=== PATIENT | male | born 2000 | race Caucasian/White ===

== ENCOUNTER 2023-01-01 22:36 | Emergency (ER) | payer OTHER, SELFPAY ==
[2023-01-01 22:38] VITALS: BP 110/80; PULSE 77; RESP 18; TEMP 36.9; O2SAT 100; BMI 18.5
--- NOTE | 2023-01-01 22:49 | ED_ITS ---
HPI - Seizure General Chief Complaint: Seizure Stated Complaint: SEIZURE Time Seen by Provider: 01/01/23 22:41 Source: patient Mode of arrival: ambulance History of Present Illness HPI Narrative: patient had several seizures at his home, witnessed by family members who live with him. On Keppra and Lamictal for seizure disorder/epilepsy. Patient reported that the local hospitals have been unable to find EEG activity and so he is supposed to see a seizure specialist in [place]. However a few weeks ago, while in [place], she apparently had a seizure and hit her head. She was hospitalized due to status epilepticus and told us that she was intubated and put into a coma . the patient denied any alcohol use, missed doses of anti- seizure medication or lack of sleep. She told us that one of the physicians in [place] increased her Lamictal dose. She denied any pain, injury or other complaint Related Data Home Medications Medication Instructions Recorded Confirmed lamotrigine 100 mg tablet 100 mg PO BID 01/01/23 01/01/23 (Lamictal) levetiracetam 1,000 mg tablet 1,000 mg PO BID 01/01/23 01/01/23 (Keppra) Allergies Allergy/AdvReac Type Severity Reaction Status Date / Time codeine Allergy Unknown Verified 01/01/23 22:46 Exam Narrative Exam Narrative: Nurses notes and vital signs reviewed and patient is not hypoxic. afebrile General: Well-appearing and in no apparent distress. Skin: Warm, dry, no pallor noted. No rash. Head: Normocephalic, atraumatic. Neck: Supple, non-tender. Eye: Pupils are equal, round and EOMI. No scleral icterus. Ears, Nose, Mouth, and Throat: TM are clear, no nasal mucosal hypertrophy. Oral mucosa is moist, no posterior oropharynx erythema, uvula is mid-line Cardiovascular: Regular Rate and Rhythm without murmur, gallop or rub. Respiratory: No accessory muscle use or respiratory distress. Lungs are clear to auscultation, no wheezing, rales or rhonchi Chest Wall: no tenderness Back: No midline thoracic or lumbar vertebral tenderness. No CVA tenderness Musculoskeletal: normal ROM, no calf or popliteal tenderness, no lower extremity edema/swelling GI: Abdomen is soft, non-distended. Normal bowel sounds. No masses appreciated. No tenderness to palpation. No rebound, guarding, or rigidity noted. Neurological: A&O x4. No cranial nerve dysfunction observed. No truncal ataxia. Moves all extremities. Sensation intact. Psychiatric: Cooperative and interactive. Normal mood and affect. Constitutional Vital Signs, click to edit/add: Last Vital Signs Temp 98.4 F 01/01/23 22:38 Pulse 77 01/01/23 22:38 Resp 18 01/01/23 22:38 BP 110/80 H 01/01/23 22:38 Pulse Ox 100 01/01/23 22:38 Course Vital Signs Vital signs: Vital Signs Temperature 98.4 F 01/01/23 22:38 Pulse Rate 77 01/01/23 22:38 Respiratory Rate 18 01/01/23 22:38 Blood Pressure 110/80 H 01/01/23 22:38 Pulse Oximetry 100 01/01/23 22:38 Temperature 98.4 F 01/01/23 22:38 Pulse Rate 77 01/01/23 22:38 Respiratory Rate 18 01/01/23 22:38 Blood Pressure 110/80 H 01/01/23 22:38 Pulse Oximetry 100 01/01/23 22:38 MDM - Seizure MDM Narrative Medical decision making narrative: Seizure precautions initiated. Patient was placed on surveillance monitor and EKG obtained. Blood drawn and sent for evaluation. Patient was ordered to receive Ativan 1mg IV. urine tox screen shows THC. CBC and BMP normal. Patient was discharged home with recommendation to continue his current regimen and follow-up with the neurology group as scheduled. Lab Data Attestation: I reviewed the patient's lab results. Labs: Lab Results 01/01/23 Range/Units 22:55 WBC 9.8 (4.0-11.0) 10^3/uL RBC 4.46 L (4.70-6.10) 10^6/uL Hgb 12.8 L (14.0-18.0) g/dL Hct 40.1 L (42.0-54.0) % MCV 89.9 (80.0-94.0) fL MCH 28.7 (25.9-34.0) pg MCHC 31.9 (29.9-35.2) g/dL RDW 12.5 (11.0-15.0) % Plt Count 264 (150-450) 10^3/uL MPV 9.3 L (9.5-13.5) fL Neut % (Auto) 44.8 (43.0-75.0) % Lymph % (Auto) 47.1 (20.5-60.0) % [place] % (Auto) 6.1 (1.7-12.0) % Eos % (Auto) 1.2 (0.9-7.0) % Baso % (Auto) 0.4 (0.2-2.0) % Neut # (Auto) 4.4 (1.4-6.5) 10^3/uL Lymph # (Auto) 4.6 H (1.2-3.8) 10^3/uL [place] # (Auto) 0.6 (0.3-0.8) 10^3/uL Eos # (Auto) 0.1 (0.0-0.7) 10^3/uL Baso # (Auto) 0.0 (0.0-0.1) 10^3/uL Abs Immat Gran (auto) 0.04 H (0.00-0.03) 10^3/uL Imm/Tot Granulo (auto) 0.4 (0.0-0.5) % Sodium 139 (136-145) mmol/L Potassium 3.9 (3.5-5.1) mmol/L Chloride 105 (98-107) mmol/L Carbon Dioxide 30.9 (21.0-32.0) mmol/L Anion Gap 7.0 BUN 8.0 (7.0-18.0) mg/dL Creatinine 0.89 (0.70-1.30) mg/dL Est GFR ( Amer) >60 (>=60) Est GFR (Non-Af Amer) >60 (>=60) BUN/Creatinine Ratio 9.0 Glucose 94 (74-106) mg/dL Calcium 9.1 (8.5-10.1) mg/dL Urine Opiates Screen Negative (NEGATIVE) Ur Buprenorphine Scrn Negative (NEGATIVE) Ur Oxycodone Screen Negative (NEGATIVE) Urine Methadone Screen Negative (NEGATIVE) Ur Propoxyphene Screen Negative (NEGATIVE) Ur Barbiturates Screen Negative (NEGATIVE) U Tricyclic Antidepress Negative (NEGATIVE) Ur Phencyclidine Scrn Negative (NEGATIVE) Ur Amphetamines Screen Negative (NEGATIVE) U Methamphetamines Scrn Negative (NEGATIVE) U Benzodiazepines Scrn Negative (NEGATIVE) Urine Cocaine Screen Negative (NEGATIVE) U Cannabinoids Screen Positive A (NEGATIVE) ECG Data Interpretation: EKG interpretation: Emergency Department physician interpretation. Normal sinus rhythm at 73bpm. Normal axis, normal intervals and no ST segment elevation or depression. normal EKG Discharge Plan Discharge Chief Complaint: Seizure Clinical Impression: Recurrent seizures Patient Disposition: Home, Self-Care Time of Disposition Decision: 23:33 Prescriptions / Home Meds: No Action levetiracetam [Keppra] 1,000 mg tablet 1,000 mg PO BID lamotrigine [Lamictal] 100 mg tablet 100 mg PO BID Instructions: Recurrent Seizures in Adults (ED) Stand Alone Forms: Portal Instructions Referrals: KAVIN FRENCH [Primary Care Provider] - 1 week
--- NOTE | 2023-01-01 22:52 | ECG_ITS ---
[facility] Test Date: 2023-01-01 Pat Name: BHAVNA VILLAR Department: Room: - Gender: Male Sack Department Supervisor: : 2000 Requested By: KAVIN FRENCH Order Number: [id number] Reading MD: RACHEL LUONG Measurements Intervals [place] Rate: 73 P: 65 OR: 150 QRS: 88 QRSD: 90 T: 46 QT: 354 QTc: 379 Interpretive Statements 1100 Sinus rhythm 9110 normal ECG No previous ECG available for comparison Electronically Signed On 01-02-2023 6:41:45 EDT by RACHEL LUONG
[2023-01-01] MEDS: LORAZEPAM 2 MG/ML 1 ML VIAL 1 MG IV (23:00)
[2023-01-01 23:06] LABS: Basophils Percent Auto 0.4 % (0.2-2.0); Eosinophils Absolute Auto 0.1 10^3/uL (0.0-0.7); Eosinophils Percent Auto 1.2 % (0.9-7.0); Hematocrit 40.1 % (42.0-54.0); Hemoglobin 12.8 g/dL (14.0-18.0); Immature Granulocytes Abs Auto 0.04 10^3/uL (0.00-0.03); Immature Granulocytes Pct Auto 0.4 % (0.0-0.5); Lymphocytes Absolute Auto 4.6 10^3/uL (1.2-3.8); Lymphocytes Percent Auto 47.1 % (20.5-60.0); Mean Corpuscular HGB Conc 31.9 g/dL (29.9-35.2); Mean Corpuscular Hemoglobin 28.7 pg (25.9-34.0); Mean Corpuscular Volume 89.9 fL (80.0-94.0); Mean Platelet Volume 9.3 fL (9.5-13.5); Monocytes Absolute Auto 0.6 10^3/uL (0.3-0.8); Monocytes Percent Auto 6.1 % (1.7-12.0); Neutrophils Absolute Auto 4.4 10^3/uL (1.4-6.5); Neutrophils Percent Auto 44.8 % (43.0-75.0); Platelet Count 264 10^3/uL (150-450); Red Blood Count 4.46 10^6/uL (4.70-6.10); Red Cell Distribution Width 12.5 % (11.0-15.0); White Blood Count 9.8 10^3/uL (4.0-11.0)
[2023-01-01 23:14] LABS: Calcium 9.1 mg/dL (8.5-10.1); Carbon Dioxide 30.9 mmol/L (21.0-32.0); Chloride 105 mmol/L (98-107); Estimated GFR (African America >60 (>=60); Estimated GFR (Non-African Ame >60 (>=60); Glucose 94 mg/dL (74-106); Potassium 3.9 mmol/L (3.5-5.1); Sodium 139 mmol/L (136-145)
[2023-01-01] MEDS: 0.9 % SODIUM CHLORIDE 1,000 ML 999 ML IV (23:16)
[2023-01-01 23:30] LABS: Amphetamine Screen Urine NEGATIVE (NEGATIVE); Barbiturates Screen Urine NEGATIVE (NEGATIVE); Benzodiazepines Screen Urine NEGATIVE (NEGATIVE); Buprenorphine Screen Urine NEGATIVE (NEGATIVE); Cannabinoid Screen Urine POSITIVE (NEGATIVE); Cocaine Screen Urine NEGATIVE (NEGATIVE); Methadone Screen Urine NEGATIVE (NEGATIVE); Methamphetamines Screen Urine NEGATIVE (NEGATIVE); Opiate Screen Urine NEGATIVE (NEGATIVE); Oxycodone Screen Urine NEGATIVE (NEGATIVE); Phencyclidine Screen Urine NEGATIVE (NEGATIVE); Tricyclic Antidepressant Urine NEGATIVE (NEGATIVE)
--- NOTE | 2023-01-01 23:30 | PC.NURSE ---
pt presents to ED and has hx of seizure activity. pt currently takes lamictal and keppra for seizure activity, patient has recently had medication dosages adjusted and has been having more frequent seizure activity than usual. pt states that while on vacation in [place] last month he had a seizure and was in the icu for a month, and was intubated and in an induced coma and just discharged last week. pt's neurologist is out of [place]. pt doesn't have a neurologist locally because everyone he has seen hasn't been able to control his seizure activity. pt takes his seizure meds as prescribed. no medicatioins given during transfer over. pt alert and oriented on arrival. pt has a watch that alerts him before a seizure occurs and also has tremors prior to seizures. pt guardian at bedside.
[2023-01-05 10:11] LABS: Levetiracetam (Keppra), S 17.3 ug/mL (10.0-40.0)
[2023-01-05 17:10] LABS: Lamotrigine (Lamictal), Serum 4.9 ug/mL (2.0-20.0)
== END 2023-01-01 23:57 | disposition home or self-care (01) ==
PROVIDERS: Emergency Provider Emergency Medicine; PCP Family Medicine
DX: G40.909 Epilepsy, unspecified, not intractable, without status epilepticus (principal); R82.5 Elevated urine levels of drugs, medicaments and biological substances; Z79.899 Other long term (current) drug therapy
CPT/HCPCS: 36415; 80048; 80175; 80177; 80307; 85025; 93005; 96374; 99284

== ENCOUNTER 2023-01-30 17:31 | Emergency (ER) | payer OTHER, SELFPAY ==
[2023-01-30] VITALS (8 sets, daily range): BP systolic 97–114; BP diastolic 61–71; PULSE 68–81; RESP 14–22; TEMP 36.9; O2SAT 100; BMI 18.5
--- NOTE | 2023-01-30 17:49 | ED_ITS ---
HPI - Seizure General Chief Complaint: Seizure Stated Complaint: SEIZURE Time Seen by Provider: 01/30/23 17:49 Source: patient Mode of arrival: ambulance Limitations: no limitations History of Present Illness HPI Narrative: patient Brought in via EMS for seizures. EMS states the family witnessed at least 7 seizures in a row. 2 of the seizures were witnessed by EMS who gave the patient 2 mg of Versed.Patient has a history of epilepsy and he is on Keppra 1g bid, and Lamictal 100bid. Patient states he has not missed any doses of medication. Patient reported that the local hospitals have been unable to find EEG activity and so he is supposed to see a seizure specialist in [place]. However a few weeks ago, while in [place], she apparently had a seizure and hit her head. She was hospitalized due to status epilepticus and told us that she was intubated and put into a coma . Patient states she has a follow-up appointment with patient resource specialist next week for this reason. She denies any alcohol use, missed doses of anti-seizure medication or lack of sleep. She told us that one of the physicians in [place] increased her Lamictal dose. Patient states normally has a breakthrough seizure every 2-3 weeks. Seizure History: Yes (sees neurologist in [place]) Related Data Home Medications Medication Instructions Recorded Confirmed lamotrigine 100 mg tablet 100 mg PO BID 01/01/23 01/01/23 (Lamictal) levetiracetam 1,000 mg tablet 1,000 mg PO BID 01/01/23 01/01/23 (Keppra) Allergies Allergy/AdvReac Type Severity Reaction Status Date / Time codeine Allergy Unknown Verified 01/04/23 14:46 Review of Systems ROS Status of ROS 10 or more systems reviewed and unremarkable except as noted in history and below [facility] Social History (System 01/04/23 @ 14:46 by Geena Sanford) Smoking status: Never smoker Exam Narrative Exam Narrative: Nurses notes and vital signs reviewed and patient is not hypoxic. General: Nontoxic, Masculine, Well-appearing and in no apparent distress. Skin: Warm, dry, no pallor noted. No Rash Head: Normocephalic, atraumatic. Neck: Supple, non-tender. Eye: Pupils are equal, round and EOMI. No scleral icterus. Ears, Nose, Mouth, and Throat: TM clear, no posterior oropharynx erythema or nasal mucosal hypertrophy, uvula is mid-line Oral mucosa is moist Cardiovascular: Regular Rate and Rhythm without murmur, gallop or rub. Respiratory: No accessory muscle use or respiratory distress. Lungs are clear to auscultation, no wheezing, rales or rhonchi Chest Wall: no tenderness Back: No midline thoracic or lumbar vertebral tenderness. No CVA tenderness Musculoskeletal: normal ROM, no calf or popliteal tenderness, no lower extremity edema/swelling GI: Abdomen is soft, non-distended. Normal bowel sounds. No masses appreciated. No tenderness to palpation. No rebound, guarding, or rigidity noted. Neurological: A&O x4. No cranial nerve dysfunction observed. No truncal ataxia. Moves all extremities. Sensation intact. Psychiatric: Cooperative and interactive. Normal mood and affect. Constitutional Vital Signs, click to edit/add: Last Vital Signs Temp 98.5 F 01/30/23 17:26 Pulse 68 01/30/23 17:50 Resp 14 01/30/23 17:50 BP 97/65 01/30/23 17:29 Pulse Ox 100 01/30/23 17:52 O2 Del Method Room Air 01/30/23 17:52 Course Vital Signs Vital signs: Vital Signs Temperature 98.5 F 01/30/23 17:26 Pulse Rate 77 01/30/23 17:26 Respiratory Rate 18 01/30/23 17:26 Blood Pressure 114/61 01/30/23 17:26 Pulse Oximetry 100 01/30/23 17:26 Oxygen Delivery Method Room Air 01/30/23 17:26 Temperature 98.5 F 01/30/23 17:26 Pulse Rate 68 01/30/23 17:50 Respiratory Rate 14 01/30/23 17:50 Blood Pressure 97/65 01/30/23 17:29 Pulse Oximetry 100 01/30/23 17:52 Oxygen Delivery Method Room Air 01/30/23 17:52 MDM - Seizure MDM Narrative Medical decision making narrative: Patient had blood work started done. He is hemodynamically stable.All results discussed with patient. pt is nontoxic. He is to follow-up with neurology as an outpatient. At this time the patient is without objective evidence of an acute process requiring hospitalization or inpatient management. The patient has remained hemo dynamically stable. No additional indication for emergent studies at this time. I answered all questions. Discussed discharge instructions including standard anticipatory guidance and what should prompt a return to the emergency department, including if they get worse are not getting better or develops any new or concerning symptoms. I've given them specific time frame in which to follow-up, and who to follow-up with. The patient demonstrates understanding. Patient is nontoxic and stable for discharge with outpatient follow-up. This note was created with the assistance of a speech recognition program. Although the intention is to generate documents that actually reflects the content of the visit, no guarantees can be provided that every mistake has been identified and corrected by editing. Lab Data Attestation: I reviewed the patient's lab results. Labs: Lab Results 01/30/23 01/30/23 Range/Units 17:45 18:34 WBC 7.4 (4.0-11.0) 10^3/uL RBC 4.94 (4.20-5.40) 10^6/uL Hgb 13.9 (12.0-16.0) g/dL Hct 42.0 (36.0-48.0) % MCV 85.0 (81.0-99.0) fL MCH 28.1 (26.7-34.0) pg MCHC 33.1 (29.9-35.2) g/dL RDW 12.7 (11.0-15.0) % Plt Count 253 (150-450) 10^3/uL MPV 10.0 (9.5-13.5) fL Neut % (Auto) 57.4 (43.0-75.0) % Lymph % (Auto) 35.4 (20.5-60.0) % [place] % (Auto) 6.1 (1.7-12.0) % Eos % (Auto) 0.5 L (0.9-7.0) % Baso % (Auto) 0.3 (0.2-2.0) % Neut # (Auto) 4.2 (1.4-6.5) 10^3/uL Lymph # (Auto) 2.6 (1.2-3.8) 10^3/uL [place] # (Auto) 0.5 (0.3-0.8) 10^3/uL Eos # (Auto) 0.0 (0.0-0.7) 10^3/uL Baso # (Auto) 0.0 (0.0-0.1) 10^3/uL Abs Immat Gran (auto) 0.02 (0.00-0.03) 10^3/uL Imm/Tot Granulo (auto) 0.3 (0.0-0.5) % Sodium 140 (136-145) mmol/L Potassium 4.0 (3.5-5.1) mmol/L Chloride 104 (98-107) mmol/L Carbon Dioxide 27.8 (21.0-32.0) mmol/L Anion Gap 12.2 BUN 7.0 (7.0-18.0) mg/dL Creatinine 0.82 (0.55-1.02) mg/dL Est GFR ( Amer) >60 (>=60) Est GFR (Non-Af Amer) >60 (>=60) BUN/Creatinine Ratio 8.5 Glucose 94 (74-106) mg/dL Calcium 9.0 (8.5-10.1) mg/dL Total Bilirubin 0.4 (0.2-1.0) mg/dL AST 15 (15-37) U/L ALT 8 L (14-59) U/L Alkaline Phosphatase 67 (46-116) U/L Total Protein 8.4 H (6.4-8.2) g/dL Albumin 4.9 (3.4-5.0) g/dL Globulin 3.5 g/dL Albumin/Globulin Ratio 1.4 Urine Opiates Screen Negative (NEGATIVE) Ur Buprenorphine Scrn Negative (NEGATIVE) Ur Oxycodone Screen Negative (NEGATIVE) Urine Methadone Screen Negative (NEGATIVE) Ur Propoxyphene Screen Negative (NEGATIVE) Ur Barbiturates Screen Negative (NEGATIVE) U Tricyclic Antidepress Negative (NEGATIVE) Ur Phencyclidine Scrn Negative (NEGATIVE) Ur Amphetamines Screen Negative (NEGATIVE) U Methamphetamines Scrn Negative (NEGATIVE) U Benzodiazepines Scrn Negative (NEGATIVE) Urine Cocaine Screen Negative (NEGATIVE) U Cannabinoids Screen Positive A (NEGATIVE) ECG Data Attestation: I personally reviewed and interpreted this ECG as follows: Interpretation: Sinus rhythm 70 bpm. There are no acute ischemic changes. Discharge Plan Discharge Chief Complaint: Seizure Clinical Impression: Recurrent seizures Patient Disposition: Home, Self-Care Time of Disposition Decision: 18:56 Condition: Good Mode of Transportation: Private Vehicle Prescriptions / Home Meds: No Action levetiracetam [Keppra] 1,000 mg tablet 1,000 mg PO BID lamotrigine [Lamictal] 100 mg tablet 100 mg PO BID Instructions: Recurrent Seizures in Adults (ED) Stand Alone Forms: Portal Instructions Referrals: KAVIN FRENCH [Primary Care Provider] - 1 week
[2023-01-30 17:52] LABS: Basophils Percent Auto 0.3 % (0.2-2.0); Eosinophils Percent Auto 0.5 % (0.9-7.0); Hemoglobin 13.9 g/dL (12.0-16.0); Immature Granulocytes Abs Auto 0.02 10^3/uL (0.00-0.03); Immature Granulocytes Pct Auto 0.3 % (0.0-0.5); Lymphocytes Absolute Auto 2.6 10^3/uL (1.2-3.8); Lymphocytes Percent Auto 35.4 % (20.5-60.0); Mean Corpuscular HGB Conc 33.1 g/dL (29.9-35.2); Mean Corpuscular Hemoglobin 28.1 pg (26.7-34.0); Monocytes Absolute Auto 0.5 10^3/uL (0.3-0.8); Monocytes Percent Auto 6.1 % (1.7-12.0); Neutrophils Absolute Auto 4.2 10^3/uL (1.4-6.5); Neutrophils Percent Auto 57.4 % (43.0-75.0); Platelet Count 253 10^3/uL (150-450); Red Blood Count 4.94 10^6/uL (4.20-5.40); Red Cell Distribution Width 12.7 % (11.0-15.0); White Blood Count 7.4 10^3/uL (4.0-11.0)
[2023-01-30 18:09] LABS: Alanine Aminotransferase 8 U/L (14-59); Albumin Globulin Ratio 1.4; Albumin Level 4.9 g/dL (3.4-5.0); Alkaline Phosphatase 67 U/L (46-116); Anion Gap 12.2; Aspartate Amino Transferase 15 U/L (15-37); BUN Creatinine Ratio 8.5; Bilirubin Total 0.4 mg/dL (0.2-1.0); Carbon Dioxide 27.8 mmol/L (21.0-32.0); Chloride 104 mmol/L (98-107); Estimated GFR (African America >60 (>=60); Estimated GFR (Non-African Ame >60 (>=60); Globulin 3.5 g/dL; Glucose 94 mg/dL (74-106); Sodium 140 mmol/L (136-145); Total Protein 8.4 g/dL (6.4-8.2)
[2023-01-30 18:49] LABS: Amphetamine Screen Urine NEGATIVE (NEGATIVE); Barbiturates Screen Urine NEGATIVE (NEGATIVE); Benzodiazepines Screen Urine NEGATIVE (NEGATIVE); Buprenorphine Screen Urine NEGATIVE (NEGATIVE); Cannabinoid Screen Urine POSITIVE (NEGATIVE); Cocaine Screen Urine NEGATIVE (NEGATIVE); Methadone Screen Urine NEGATIVE (NEGATIVE); Methamphetamines Screen Urine NEGATIVE (NEGATIVE); Opiate Screen Urine NEGATIVE (NEGATIVE); Oxycodone Screen Urine NEGATIVE (NEGATIVE); Phencyclidine Screen Urine NEGATIVE (NEGATIVE); Tricyclic Antidepressant Urine NEGATIVE (NEGATIVE)
--- NOTE | 2023-01-30 19:25 | ECG_ITS ---
[facility] Test Date: 2023-01-30 Pat Name: BHAVNA VILLAR Department: Room: - Gender: Female [employer] Specialist: : 2000 Requested By: [id number] Order Number: [id number] Reading MD: JOYCELYN LAMAR Measurements Intervals [place] Rate: 70 P: 67 MS: 154 QRS: 86 QRSD: 90 T: 63 QT: 378 QTc: 399 Interpretive Statements [address] elevation, probably early repolarization 9130 borderline ECG No previous ECG available for comparison Electronically Signed On 02-01-2023 7:10:34 EDT by JOYCELYN LAMAR
[2023-02-01 17:10] LABS: Levetiracetam (Keppra), S 23.4 ug/mL (10.0-40.0)
== END 2023-01-30 19:09 | disposition home or self-care (01) ==
PROVIDERS: Emergency Provider Emergency Medicine; PCP Family Medicine
DX: G40.909 Epilepsy, unspecified, not intractable, without status epilepticus (principal); Z79.899 Other long term (current) drug therapy
CPT/HCPCS: 36415; 80053; 80175; 80177; 80307; 85025; 93005; 99284

== ENCOUNTER 2023-04-28 07:51 | Outpatient (OUT) | payer OTHER, SELFPAY ==
--- NOTE | 2023-04-28 08:55 | CA_ITS ---
Patient: BHAVNA VILLAR Exam Date: 04/28/2023 : 2000 Gender:F Ordering : GLORIA DAMON Admission #: [id number] Family : Order #: [id number] CLICK HERE TO VIEW EXAM ECHOCARDIOGRAM REPORT PROCEDURE: CA ECHO DOPPLER COMPLETE INDICATIONS: Palpitation, dizziness, DUFFY COMPARISON: None. DESCRIPTION: COMPLETE ECHOCARDIOGRAM Real-time transthoracic echocardiography with 2D, M-mode, spectral and color flow Doppler performed. QUALITY: Technical quality was good. LEFT VENTRICLE: Normal chamber size. Normal left ventricular wall thickness. LV EF: Global left ventricular systolic function is normal. Calculated left ventricular ejection fraction is 65% DIASTOLIC: Normal diastolic function. ATRIAL SEPTUM: Inadequately seen. LEFT ATRIUM: Normal chamber size. RIGHT ATRIUM: Normal chamber size. A prominent Eustachian valve (normal variant) is seen. RIGHT VENTRICLE: Normal chamber size. Normal right ventricular systolic function. TRICUSPID VALVE: Normal mobility and thickness. Trivial regurgitation. No evidence of pulmonary hypertension. RVSP 29mmHg MITRAL VALVE: Normal mobility. Nonspecific thickening of the mitral leaflets. No evidence of mitral valve stenosis. There is no mitral annular calcification. Trivial mitral regurgitation. AORTIC VALVE: Normal trileaflet appearance. No visible sclerosis. Normal leaflet mobility. No evidence of aortic valve stenosis. No aortic regurgitation. AORTIC ROOT: Normal diameter and appearance. PULMONIC VALVE: Normal thickness and mobility. No stenosis. Trivial regurgitation. PERICARDIUM: No evidence of pericardial effusion. IVC: Collapses with inspirations. Normal size. CONCLUSION: 1. Global left ventricular systolic function is normal; visually estimated ejection fraction of 60 to 65% 2. The right ventricle is normal in size and systolic function 3. Normal diastolic function 4. No significant valvular abnormalities Adult Echocardiography Procedure Report Left Ventricle LVEDD (3.7 - 5.6 cm): 4.15 cm LVESD (2.2 - 4.0 cm): 2.74 cm LVIVS thickness (0.6 - 1.2 cm): 0.57 cm LVPW thickness (0.5 - 1.0 cm): 0.65 cm e': 0.17 m/s E - e': 4.56 LVOT Max Gradient: 2.97 mm[Hg] LVOT Area (cm2): 0.86 m/s Peak Velocity (LVOT): 0.86 m/s Mean Velocity (LVOT): 0.59 m/s LVOT Diameter 1.57 cm Left Ventricular Ejection Fraction: 64.59 % Left Atrium LA Volume Index (2D A2C): 23.50 ml/m2 Left Atrium Systolic Dimension: 2.64 cm Mitral Valve MV E to A Ratio: 1.96 Mitral Valve A-Wave Peak Velocity: 0.40 m/s Mitral Valve E-Wave Peak Velocity: 0.79 m/s Right Ventricle RV Internal Diastolic Dimension: 2.65 cm Aorta AO Root Diam: 2.23 cm Ascending Ao Diam: 2.46 cm Aortic Valve AoV Area (Peak Oracio): 1.38 cm2, 1.38 cm2 AoV Area (VTI): 1.25 cm2, 1.25 cm2 Peak Velocity(Antegrade Flow): 1.21 m/s Peak Gradient(Antegrade Flow): 5.85 mm[Hg] Mean Velocity(Antegrade Flow): 0.85 m/s Mean Gradient(Antegrade Flow): 3.28 mm[Hg] Velocity Time Integral: 30.80 cm Tricuspid Valve Peak Velocity (Regurgitant Flow): 2.10 m/s, 2.28 m/s, 2.54 m/s Pulmonic Valve Mean Gradient: 1.52 mm[Hg], 1.49 mm[Hg] Mean Velocity: 0.57 m/s, 0.56 m/s Peak Velocity: 0.85 m/s Peak Gradient: 2.82 mm[Hg], 3.01 mm[Hg] Right Atrium Right Atrium Systolic Pressure: 24.39 ml, 24.39 ml Dictated by: Sierra Salamanca M.D. on 04/28/2023 at 17:10 Approved by: Sierra Salamanca M.D. on 04/28/2023 at 17:15
== END 2023-04-28 07:52 | disposition home or self-care (01) ==
LOC: CARD 07:51
PROVIDERS: PCP Family Medicine; Visit Provider Nurse Practitioner
DX: R00.2 Palpitations (principal); R42 Dizziness and giddiness; R55 Syncope and collapse; R06.09 Other forms of dyspnea
CPT/HCPCS: 93306

== ENCOUNTER 2023-07-29 09:05 | Emergency (ER) | payer OTHER, SELFPAY ==
[2023-07-29 09:10] VITALS: BP 111/75; PULSE 68; RESP 16; TEMP 36.6; O2SAT 100; BMI 19.8
--- OUTSIDE RECORDS SUMMARY | 2023-07-29 09:17 | XMS_ITS | CCD ---
Author Name Unknown Address [address] [facility] [address] [place] [address] Organization [facility] Care Team Providers Care [employer] Assistant Principal Name Role Phone ALEXA SAHA Admitting Unavailable ALEXA SAHA Attending Unavailable HOUSE, ERIC Primary Care Unavailable SELF, REFERRED Referring Unavailable HOUSE, SR ERIC Boland Primary Care Unavailable JUANJOSE JIANG Attending Unavailabl e WHITE, DION Sanders Attending Unavailable HOUSE, ERIC Boland Referring Unavailable HOUSE, ERIC Boland Primary Care Unavailable Gillian, DO Eric Primary Care Provider [phone] DO Bobby Gallagher Emergency Provider Unavai DO Tommy Hernandez Emergency Provider DO Luz Fiore Emergency Provider [phone] DO Roberto Segovia Emergency Provider DO Tommy Bowen Emergency Provider [phone] DO Eric French Primary Care Provider DO Phyllis Roman Emergency Provider [phone] MD Mario Alberto Jose Emergency Provider [phone] DO Luz Fiore Emergency Provider Minturn Sr.Eric Primary Care Provider DO Tommy Bowen Emergency Provider DO Eric French Primary Care Provider DO Phyllis Roman Emergency Provider [phone] MD Mario Alberto Jose Emergency Provider DO Luz Fiore Emergency Provider DO Phyllis Roman Emergency Provider Minturn, DO Reyes Primary Care Provider Leslie DO Attila Anderson Emergency Provider [phone] Minturn, DO Reyes Primary Care Provider Panfilo DO Rboerto Espinosa Emergency Provider Minturn, DO Reyes Primary Care Provider Nelson, DO Attila Anderson Emergency Provider Unavailab DO Roberto Richard Emergency Provider ZEYAD Bowen Emergency Provider Aiden [facility] Federica Waldron Emergency Provider [phone] GILLIAN, DR REYES Primary Care Unavailable TAMIR, DEO Admitting Unavailable TAMIR, DEO Attending Unavailable TAMIR, DEO Consulting Unavailable GILLIAN, DR REYES Primary Care Unavailable DAMON, DR MARGARITA Frankel Consulting Unavailable DAMON, DR MARGARITA Frankel Admitting Unavailable DAMON, DR MARGARITA Frankel Attending Unavailable GILLIAN, DR REYES Primary Care Unavailable TAMIR, DEO Admitting Unavailable TAMIR, DEO Attending Unavailable TAMIR, DEO Consulting Unavailable DOUGLAS, FRED Consulting Unavailable GILLIAN, DR REYES Primary Care Unavailable TAMIR, DEO Admitting Unavailable TAMIR, DEO Attending Unavailable TAMIR, DEO Consulting Unavailable SOPHIE ., COLTEN Consulting Unavailable KENVIR, DR ERYES Primary Care Unavailable PAY ., DR OSULLIVAN Admitting Unavailable PAY ., DR OSULLIVAN Attending Unavailable PAY ., DR OSULLIVAN Consulting Unavailable DERROW, COSMO Consulting Unavailable KENVIR, DR REYES Primary Care Unavailable MARKER ., DR CASTRO Consulting Unavailable MARKER ., DR CASTRO Admitting Unavailable MARKER ., DR CASTRO Attending Unavailable DEBBIE BRITT Consulting Unavailable NAHUN SAMUELS Consulting Unavailable GILLIAN, DR REYES Primary Care Unavailable SOPHIE ., COLTEN Admitting Unavailable SOPHIE ., COLTEN Attending Unavailable DAMON, DR MARGARITA Frankel Consulting Unavailable SOPHIE ., COLTEN Consulting Unavailable LO TUTTLE Consulting Unavailable Minturn Sr., Eric BUCKLEY Primary Care Provider KENVIR ERIC LYONS Primary Care Unavailable DAVIDSON ORTEZ Attending Unavailable Minturn, DO Reyes Primary Care Provider DO Luz Fiore Emergency Provider ZEYAD Rivera Emergency Provider [phone] House, DO Eric Primary Care Provider DO Luz Fiore Emergency Provider ZEYAD Rivera Emergency Provider [phone] MD Mario Alberto Jose Emergency Provider NON STAFF Primary Care Provider Unavailamrit e Panfilo, Roberto A Admitting Unavailable Keister, Roberto A Attending Unavailable House, Eric Primary Care Unavailable Jessi, Shanelle E Admitting Unavailable Jessi, Shanelle E Attending Unavailable House, Eric Primary Care Unavailable NON STAFF Primary Care Unavailable Fiore, Luz Admitting Unavailable Fiore, Luz Attending Unavailable Bullimore, Federica E Admitting Unavailable Bullimore, Federica E Attending Unavailable House, Eric Primary Care Unavailable House, Eric Primary Care Unavailable Tupa, Phyllis M Admitting Unavailable Tupa, Phyllis Goodrich Attending Unavailable House, Eric Primary Care Unavailable Sidhu, Nahun Admitting Unavailable Sidhu, Nahun Attending Unavailable House, Eric Primary Care Unavailable Jessi, Tommy M Admitting Unavailable Jessi, Tommy M Attending Unavailable House, Eric Primary Care Unavailable Adebayo, Luz Admitting Unavailable Adebayo, Luz Attending Unavailable House, Eric Primary Care Unavailable Milton Rivera Admitting Unavailable Milton Rivera Attending Unavailable NON STAFF Primary Care Unavailable Mario Alberto Jose Admitting Unavailable Mario Alberto Jose Attending Unavailable Attila Nelson Admitting Unavailable Attila Nelson Attending Unavailable Gillian, Eric Primary Care Unavailable MARISOL, GLORIA Referring Unavailable LUIS FERNANDO GUERRIER Attending Unavailable MARISOL, GLORIA Attending Unavailable MARISOL, GLORIA Referring Unavailable House , Eric Boland Primary Care Provider ENRIQUETA TSE I Attending Unavailable HOUSEERIC Referring Unavailable HOUSE, ERIC P Primary Care Unavailable HOUSE, ERIC P Referring Unavailable HOUSE, ERIC P Primary Care Unavailable ENRIQUETA TSE I Referring Unavailable GILLIAN, ERIC Boland Primary Care Unavailable Allergies Allergy Classification Reported Allergen(s) Allergy Type Date of Onset Reaction(s) Facility (17 sources) Codeine; Translations: [CODEINE] Drug Allergy 8 Hives [facility] Repository (3 sources) Codeine Drug Allergy 8 Hives, Itching [facility] Work Phone: (1 source) Codeine Drug Allergy 3 [facility] Repository Medications Current Medications Medication Drug Class(es) Dates Sig (Normalized) Sig (Original) brivaracetam 50 mg oral tablet (1 source) take 1 tablet by mouth in the morning BRIVIACT 50 mg tablet TAKE 1 TABLET BY MOUTH IN THE MORNING and ONE TABLET BY MOUTH BEFORE bedtime 0 Active Cenobamate (Xcopri Titration Pack) 12.5 mg (14)- 25 mg (14) tablets,dose pack (2 sources) Start: 03-11-2023 take 1 tablet by mouth once daily at bedtime Cenobamate (Xcopri Titration Pack) 12.5 mg (14)- 25 mg (14) tablets,dose pack Active 12.5 TAB PO Daily at bedtime March 10, 2023 11:00pm Start: 03-11-2023 take 1 tablet by ketan th once daily at bedtime Cenobamate (Xcopri Titration Pack) 12.5 mg (14)- 25 mg (14) tablets,dose pack Active 12.5 TAB PO Daily at bedtime March 11, 2023 12:00am cloBAZam 10 mg oral tablet (1 source) Benzodiazepine Start: 04-12-2023 take 1 tablet by mouth once daily Clobazam (Onfi) 10 mg Tablet Active 10 MG PO Daily April 11, 2023 11:00pm docusate sodium 100 mg oral capsule (1 source) Start: 11-24-2021 take 1 capsule by mouth in the morning, then take 1 capsule by mouth at bedtime docusate sodium (COLACE) 100 mg capsule Take 1 capsule (100 mg total) by mouth in the morning and 1 capsule (100 mg total) before bedtime. 14 capsule 0 11/24/2021 Active ibuprofen 800 mg oral tablet (1 source) Nonsteroidal Anti-inflammatory Drug Start: 05-12-2023 take 800 mg by mouth three times daily Ibuprofen Active 800 MG PO Three times daily May 12, 2023 12:00am ketorolac tromethamine 10 mg oral tablet (1 source) Nonsteroidal Anti-inflammatory Drug, Cyclooxygenase Inhibitor Start: 11-13-2021 take 1 tablet by mouth every six hours as needed for pain ketorolac (TORADOL) 10 mg tablet Take 1 tablet (10 mg total) by mouth every 6 (six) hours as needed for pain. 20 tablet 0 11/13/2021 Active lamoTRIgine 100 mg oral tablet (20 sources) Mood Stabilizer, Anti-epileptic Agent Start: 03-23-2023 take 1 tablet by mouth twice daily Lamotrigine (Lamictal) 100 mg tablet Active 100 MG PO Twice daily March 22, 2023 11:00pm Start: 07-27-2022 End: 05-12-2023 take 4 tablets by mouth twice daily Lamotrigine (Lamictal) 25 mg Tablet Discontinued 100 MG PO Twice daily July 27, 2022 12:00am May 12, 2023 1:30pm Start: 07-27-2022 take 4 tablets by mo [facility] once daily in the morning Lamotrigine (Lamictal) 25 mg Tablet Active 100 MG PO Every morning July 27, 2022 1:00am Start: 07-27-2022 take 1 tablet by ketan four times daily Lamotrigine (Lamictal) 25 mg Tablet Active 25 MG PO Four times daily July 27, 2022 12:00am Start: 07-27-2022 take 1 tablet by ketan once daily Lamotrigine (Lamictal) 25 mg Tablet Active 25 MG PO Daily July 27, 2022 12:00am Start: 01-02-2021 End: 02-25-2022 take 1 tablet by mouth once daily at bedtime Lamotrigine (Lamictal) 100 mg tablet Discontinued 100 MG PO Daily at bedtime June 02, 2021 11:46am February 25, 2022 10:47am take 4 tablets by mo [facility] twice daily lamoTRIgine (LAMICTAL) 25 mg tablet Take 100 mg by mouth twice daily. 0 Active Comment on above: Take 100 mg by mouth twice daily. lidocaine 0.05 mg/mg medicated patch (1 source) Antiarrhythmic, Amide Local Anesthetic Start: 023 apply 1 dose topically once daily Lidocaine (Lidoderm) 5 % adhesive patch,medicated Active 1 PATCH TOPICAL Daily May 12, 2023 12:00am leave on most painful area for up to 12 hrs metoclopramide 10 mg oral tablet (1 source) Dopamine-2 Receptor Antagonist Start: 022 take 1 tablet by mouth every eight hours as needed metoclopramide (REGLAN) 10 mg tablet Take 10 mg by mouth every 8 (eight) hours as needed. 0 10/16/2021 Active midazolam 50 mg/ml nasal spray (2 sources) Benzodiazepine Start: midazolam (NAYZILAM) 5 mg/spray (0.1 mL) spray,non-aerosol Administer 5 mg into each nostril. 0 02/06/2023 Active Start: 02-06-2023 Midazolam (NAY ZILAM) 5 MG/0.1ML SOLN Indications: Seizure (HCC) 5 mg by Nasal route 1 (one) time if needed (for seizure. May repeat x1 if no response after 10 minutes.) Max Daily Amount: 5 mg 2 each 0 02/06/2023 Active Midazolam (Nayzilam) 5 mg/sp ray (0.1 mL) spray,non-aerosol (2 sources) Start: 03-11-2023 Midazolam (Nay zilam) 5 mg/spray (0.1 mL) spray,non-aerosol Active 1 SPRAY INTRANASAL As Directed March 10, 2023 11:00pm Start: 03-11-2023 Midazolam (Nay zilam) 5 mg/spray (0.1 mL) spray,non-aerosol Active 1 SPRAY INTRANASAL As Directed March 11, 2023 12:00am midodrine hydrochloride 5 mg oral tablet (3 sources) alpha-Adrenergic Agonist Start: 03-11-2023 take 5 mg by mouth three times daily Midodrine Active 5 MG PO Three times daily March 10, 2023 11:00pm ondansetron 4 mg disintegrating oral tablet (2 sources) Serotonin-3 Receptor Antagonist Start: 10-13-2021 take 4 mg by mouth every eight hours Ondansetron Active 4 MG PO Q8H May 12, 2023 12:00am promethazine hydrochloride 25 mg rectal suppository (1 source) Phenothiazine Start: 10-16-2021 promethazine (PHENERGAN) 25 mg suppository INSERT 1 (ONE) SUPPOSITORY RECTALLY EVERY 6 HOURS NEEDED 0 10/16/2021 Active SUMAtriptan 100 mg oral tablet (1 source) Serotonin-1b and Serotonin-1d Receptor Agonist Start: 04-14-2023 End: 04-13-2024 SUMAtriptan (IMITREX) 100 mg tablet Take 1 tablet (100 mg total) by mouth. 0 04/14/2023 04/13/2024 Active 1 ml testosterone cypionate 200 mg/ml injection (20 sources) Androgen Start: 08-17-2021 End: 08-17-2025 inject 100 mg by subcutaneous injection every other week testosterone cypionate (DEPO-TESTOSTERO NE) 200 mg/mL injection Indications: Gender dysphoria in adult INJECT 100 MG (0.5 ml) SQ Q2wks 2 mL 1 08/17/2021 08/17/2025 Active Start: 12-04-2019 End: 12-04-2019 Testosterone Discontinued MG December 03, 2019 11:00pm December 04, 2019 2:36pm Start: 12-04-2019 End: 03-31-2021 inject 50 mg by intramuscular injection every other week Testosterone Cypionate Discontinued 50 MG IM EVERY 2 WEEKS December 03, 2019 11:00pm March 31, 2021 10:40am Comment on above: INJECT 100 MG (0.5 m l) SQ Q2wks Completed/Discontinued Medications Medication Drug Class(es) Dates Sig (Normalized) Sig (Original) BD LUER-MARYLOU SYRINGE (1 source) Start: 07-03-2020 BD LUER-MARYLOU SYRINGE Indications: Gender dysphoria in adolescent and adult 1 mL syringe for use with testosterone injection SQ Q2wks 10 Each 5 07/03/2020 Active Comment on above: 1 mL syringe for use with testosterone injection SQ Q2wks cephalexin 500 mg oral capsule (20 sources) Cephalosporin Antibacterial Start: 07-10-2021 End: 09-28-2021 take 500 mg by mouth twice daily Cephalexin Discontinued 500 MG PO Twice daily 14 7 August 07, 2021 12:00am September 09, 2021 11:35am lacosamide 100 mg oral tablet (13 sources) Anti-epileptic Agent Start: 08-18-2022 End: 09-13-2022 take 1 tablet by mouth twice daily Lacosamide (Vimpat) 100 mg Tablet Discontinued 100 MG PO Twice daily August 18, 2022 12:00am September 13, 2022 9:46am Start: 03-30-2022 End: 07-27-2022 take 1 tablet by mouth twice daily Lacosamide (Vimpat) 100 mg Tablet Discontinued 100 MG PO Twice daily March 29, 2022 11:00pm July 27, 2022 12:07pm 100 ml levETIRAcetam 10 mg/m l injection (20 sources) Start: 02-06-2023 End: 02-06-2023 levETIRAcetam (KEPPRA) 1000 mg/100 mL IVPB Start: 05-18-2022 take 2 tablets by mo uth twice daily Levetiracetam (Keppra) 500 mg tablet Active 1000 MG PO Twice daily May 18, 2022 12:00am Start: 05-18-2022 take 1000 mg by mout h twice daily Levetiracetam Active 1000 MG PO Twice daily May 18, 2022 1:00am Start: 05-18-2022 take 750 mg by mouth twice daily Levetiracetam Active 750 MG PO Twice daily May 18, 2022 12:00am Start: 05-18-2022 take 1500 mg by mout h twice daily Levetiracetam Active 1500 MG PO Twice daily May 18, 2022 12:00am Start: 02-25-2022 End: 02-25-2022 take 1 tablet by mouth twice daily Levetiracetam (Keppra) 500 mg tablet Discontinued 500 MG PO Twice daily 28 February 24, 2022 11:00pm February 25, 2022 10:47am Start: 03-31-2021 End: 03-30-2022 take 1000 mg by mouth twice daily Levetiracetam Discontinued 1000 MG PO Twice daily March 31, 2021 10:40am March 30, 2022 10:02am Start: 01-03-2021 take 1 tablet by ketan twice daily levETIRAcetam (KEPPRA) 750 mg tablet Take 1 tablet (750 mg total) by mouth 2 (two) times a day. 28 tablet 0 01/03/2021 Active Start: 01-02-2021 End: 03-31-2021 take 500 mg by mouth twice daily Levetiracetam Discontinued 500 MG PO Twice daily 60 January 01, 2021 11:00pm March 31, 2021 10:40am LORazepam 1 mg oral tablet (1 source) Benzodiazepine Start: 09-16-2020 take 1 tablet by mouth every twelve hours LORazepam (ATIVAN) 1 mg tablet Take 1 mg by mouth q 12 HR. 0 09/16/2020 Active Comment on above: Take 1 mg by mouth q 12 HR. metFORMIN hydrochloride 500 mg oral tablet (17 sources) Biguanide Start: 08-18-2022 End: 09-13-2022 take 500 mg by mouth twice daily Metformin Discontinued 500 MG PO Twice daily August 18, 2022 12:00am September 13, 2022 9:46am Start: 05-29-2021 End: 05-18-2022 take 500 mg by mouth twice daily Metformin Discontinued 500 MG PO Twice daily May 29, 2021 12:00am May 18, 2022 11:06am 24 hr metoprolol succinate 100 mg extended release oral tablet (1 source) beta-Adrenergic Eleonora metoprolol succinate ER (TOPROL XL) 100 mg Take by mouth. 0 Active Comment on above: Take by mouth. nitrofurantoin, macrocrystals 25 mg / nitrofurantoin, monohydrate 75 mg oral capsule (3 sources) Nitrofuran Antibacterial Start: 023 End: take 1 capsule by mouth twice daily at mealtime Nitrofurantoin Monohyd/M-Cryst (Macrobid) 100 mg capsule Discontinued 100 MG PO Twice daily 03 31August 30, 2022 12:00am September 13, 2022 9:45am must administer with a meal/food phenytoin sodium 100 mg extended release oral capsule (2 sources) Anti-epileptic Agent Start: take 3 capsules by mouth once daily phenytoin ER (DILANTIN) 100 mg ER capsule Take 300 mg by mouth once daily. 0 11/03/2020 Active phenytoin (NITIN TIN) 100 mg ER capsule Comment on above: Take 300 mg by mouth once daily. propranolol hydrochloride 10 mg oral tablet (13 sources) beta-Adrenergic Eleonora Start: 02-21-2020 take 1 tablet by mouth three times daily propranolol (INDERAL) 10 mg tablet Take 1 tablet by mouth three times daily. 90 tablet 2 02/21/2020 Active Start: 12-04-2019 End: 12-04-2019 Propranolol Discontinued TAB LET December 03, 2019 11:00pm December 04, 2019 2:35pm Comment on above: Take 1 tablet by ketan th three times daily. sertraline 25 mg oral tablet (20 sources) Serotonin Reuptake Inhibitor Start: 12-04-2019 End: 03-31-2021 take 100 mg by mouth once daily Sertraline Discontinued 100 MG PO Daily December 03, 2019 11:00pm March 31, 2021 10:39am Start: 12-04-2019 End: 12-04-2019 Sertraline (Zoloft) 25 mg Ta blet Discontinued MG TABLET December 03, 2019 11:00pm December 04, 2019 2:36pm sucralfate 1000 mg oral tablet (12 sources) Aluminum Complex Start: 06-02-2021 End: 06-29-2021 take 1 tablet by mouth twice daily Sucralfate (Carafate) 1 gram tablet Discontinued 1 GM PO Twice daily 03 31June 02, 2021 1:08pm June 29, 2021 11:25am Problems Active Problems Problem Classification Problem Date Documented Da te Episodic/Chronic Abdominal pain (4 sources) Right lower quadrant pain; Translations: [Flank pain] Onset: 10-16-2021 Episodic Anxiety disorders (5 sources) Social phobia; Translations: [Social phobia, unspecified] Onset: 07-15-2017 12-05-2019 Chronic Calculus of urinary tract (9 sources) Personal history of urinary calculi; Translations: [Calculus of kidney] Onset: 10-15-2021 05-12-2023 Episodic Cardiac dysrhythmias (2 sources) Palpitations; Translations: [Palpitations] Onset: 02-01-2023 Episodic Conditions associated with dizziness or vertigo (2 sources) Dizziness and giddiness; Translations: [Dizziness and giddiness] Onset: 03-25-2023 Episodic Diabetes mellitus without complication (1 source) Type 2 diabetes mellitus without complications; Translations: [TYPE 2 DM WITHOUT COMPLICATIONS] Onset: 09-27-2022 Chronic Epilepsy; convulsions (9 sources) Other generalized epilepsy and epileptic syndromes, not intractable, without status epilepticus; Translations: [Epilepsy, unspecified, not intractable, without status epilepticus] Onset: 07-20-2017 Chronic Epilepsy; convulsions (20 sources) Neurological finding; Translations: [Unspecified convulsions] Onset: 08-31-2018 06-02-2021 Episodic Fluid and electrolyte disorders (13 sources) Acute hypokalemia; Translations: [Hypokalemia] Onset: 10-20-2021 07-10-2021 Episodic Genitourinary symptoms and ill-defined conditions (20 sources) Blood in urine; Translations: [Hematuria, unspecified] 07-10-2021 Episodic Miscellaneous mental health disorders (20 sources) Dissociative convulsions; Translations: [Conversion disorder with seizures or convulsions] Onset: 07-17-2017 08-15-2019 Chronic Mood disorders (20 sources) Mood disorder; Translations: [Unspecified mood [affective] disorder] 03-31-2021 Chronic Nausea and vomiting (12 sources) Nausea and vomiting; Translations: [Nausea with vomiting, unspecified] 06-02-2021 Episodic Nonspecific chest pain (15 sources) Atypical chest pain; Translations: [Other chest pain] Onset: 01-03-2022 09-28-2021 Episodic Nutritional deficiencies (1 source) Deficiency of macronutrients; Translations: [Mild protein-calorie malnutrition] Onset: 12-07-2019 12-11-2019 Chronic Other aftercare (1 source) Other buggy ladle tender (current) drug therapy; Translations: [OTH 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 SPECIALIST CURRENT DRUG THERAPY] Onset: 09-27-2022 Episodic Other aftercare (1 source) half-way (current) use of oral hypoglycemic drugs; Translations: [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 SPECIALIST USE ORAL HYPOGLYCEMIC DX] Onset: 09-27-2022 Episodic Other circulatory disease (2 sources) Personal history of other diseases of the circulatory system; Translations: [Personal history of other diseases of the circulatory system] Onset: 06-17-2023 Episodic Residual codes; unclassified (12 sources) Gender finding; Translations: [Other specified health status] 12-31-2020 Episodic Residual codes; unclassified (1 source) Acquired absence of unspecified breast and nipple; Translations: [ACQUIRED ABSENCE UNS BREAST AND NIPPLE] Onset: 09-27-2022 Episodic Residual codes; unclassified (1 source) Acquired absence of bilateral breasts and nipples; Translations: [ACQUIRED ABSENCE NESTOR BREAST AND NIPPLES] Onset: 09-27-2022 Episodic Spondylosis; intervertebral disc disorders; other back problems (12 sources) Backache; Translations: [Dorsalgia, unspecified] 07-10-2021 Episodic Syncope (2 sources) Syncope and collapse; Translations: [Syncope and collapse] Onset: 03-25-2023 Episodic Unclassified (2 sources) C/O POSSIBLE SEIZURE Onset: 07-20-2017 Unclassified (1 source) Unspecified convulsions; Translations: [Unspecified convulsions] Onset: 08-18-2022 Urinary tract infections (20 sources) Urinary tract infectious disease; Translations: [Urinary tract infection, site not specified] Onset: 10-20-2021 09-09-2021 Episodic Past or Other Problems Problem Classification Problem Date Documented Da te Episodic/Chronic Headache; including migraine (3 sources) Headache; Translations: [Frequent headache] Onset: 07-20-2017 03-13-2020 Episodic Other connective tissue disease (1 source) Transient limb paralysis; Translations: [Other symptoms and signs involving the nervous system] Onset: 01-22-2022 01-22-2022 Episodic Other lower respiratory disease (2 sources) Other forms of dyspnea; Translations: [Other forms of dyspnea] Onset: 02-01-2023 Episodic Other non-traumatic joint disorders (1 source) Pain in left hip; Translations: [Pain in left hip] Onset: 10-20-2022 Episodic Other nutritional; endocrine; and metabolic disorders (1 source) Abnormal weight loss; Translations: [Abnormal weight loss] Onset: 12-05-2019 12-11-2019 Episodic Other screening for suspected conditions (not mental disorders or infectious disease) (2 sources) Decreased thyroid stimulating hormone level; Translations: [Other specified abnormal findings of blood chemistry] Onset: 12-06-2019 12-11-2019 Episodic Residual codes; unclassified (3 sources) Other general symptoms and signs; Translations: [OTHER GENERAL SYMPTOMS AND SIGNS] Onset: 07-20-2017 Episodic Residual codes; unclassified (2 sources) Difficulty sleeping ; Translations: [Sleep disorder, unspecified] Onset: 08-31-2018 03-13-2020 Episodic Screening and history of mental health and substance abuse codes (2 sources) Finding of opiate drug in blood; Translations: [History of adulthood abuse] Onset: 11-04-2021 11-04-2021 Episodic Suicide and intentional self-inflicted injury (1 source) Suicidal ideations; Translations: [SUICIDAL IDEATIONS] Onset: 07-20-2017 Episodic Viral infection (1 source) Disease caused by 2019-nCoV; Translations: [COVID-19] Onset: 04-24-2021 04-24-2021 Episodic Results Test Name Value Interpretation Reference Range Facility URINALYSISon 07-22-2023 Bilirubin Ql (U) Negative Normal NEG [facility] BLOOD/HGB Small Abnormal NEG [facility] CA OXALATE CRYSTALS PRESENT Abnormal NONE [facility] Color (U) YELLOW Normal YELLOW [facility] Glucose Ql (U) Negative Normal NEG [facility] Ketones Ql (U) Negative Normal NEG [facility] Leukocyte esterase Test strip Ql (U) Negative Normal NEG [facility] MUCOUS PRESENT Abnormal NONE [facility] Nitrite Ql (U) Negative Normal NEG [facility] pH (U) 7.0 [pH] Normal 5.0-8.5 [facility] Protein Ql (U) Trace Abnormal NEG [facility] R.B.CELLS 13 /hpf High 0-5 [facility] Specific gravity (U) [Rel density] 1.018 Normal 1.003-1.035 [facility] SQUAMOUS EPITHELIUM 2 /hpf Normal 0-5 [facility] TURBIDITY CLEAR Normal CLEAR [facility] Urobilinogen (U) [Mass/Vol] mg/dL Normal <1.1 [facility] W.B.CELLS 3 /hpf Normal 0-5 [facility] XR ABDOMEN AP 1 VWon 024 XR ABDOMEN AP 1 VW XR ABDOMEN AP 1 VW XR ABDOMEN AP 1 VW 07/07/2023 11:40 AM INDICATION: Right kidney stone COMPARISON: CT abdomen pelvis 10/13/2021 TECHNIQUE: Single view of the abdomen was obtained. FINDINGS: Patent high-density areas overlying the expected region of the kidneys measuring up to 6 mm on the right and 5 mm of left are favored to be due to overlying bowel content, indeterminate. Mild to moderate stool burden. No suspicious concentrations within the pelvis. Osseous structures are unremarkable. IMPRESSION: High density areas measuring up to 6 mm in the expected regions of the kidneys may relate to overlying bowel content, indeterminate. If there is high clinical concern further evaluation with ultrasound or CT recommended. Finalized by Shan Rodney DO on 07/09/2023 12:02 PM Normal [facility] Office Visiton 06-17-2023 Follow-up visit [id number] Juan Jose Kovacs 2000 F Date Provider Department Center 06/17/2023 1596-LUIS FERNANDO GUERRIER [facility] No family history on file Level of Service:57141 [place] OFFICE/OUTPATIENT ESTABLISHED MOD MDM 30 MIN Normal [facility] Alanine aminotransferase [En zymatic activity/volume] in Serum or PlasmaOrdered By: Luz Fiore on 05-12-2023 ALT [Catalytic activity/Vol] 8 U/L 7-52 [facility] Albumin [Mass/volume] in Ser um or Plasma by Bromocresol green (BCG) dye binding methoOrdered By: uLz Fiore on 05-12-2023 Albumin BCG dye [Mass/Vol] 4.6 g/dL 3.5-5.7 [facility] Alkaline phosphatase [Enzyma tic activity/volume] in Serum or PlasmaOrdered By: Luz Fiore on 05-12-2023 ALP [Catalytic activity/Vol] 56 U/L 34-104 [facility] Aspartate aminotransferase [ Enzymatic activity/volume] in Serum or PlasmaOrdered By: Luz Fiore on 05-12-2023 AST [Catalytic activity/Vol] 14 U/L 13-39 [facility] Automated erythrocytes count in urine sediment (number/area)Ordered By: Luz Fiore on 05-12-2023 RBC Auto (Urine sed) [#/Area] 5-9 [HPF] 0-4 [facility] Automated leukocytes count i n urine sediment (number/area)Ordered By: Luz Fiore on 05-12-2023 WBC Auto (Urine sed) [#/Area] 5-9 [HPF] 0-4 [facility] Basophils Auto (Bld) [#/Vol] Ordered By: Luz Fiore on 05-12-2023 Basophils (Bld) [#/Vol] 0.0 10*3/uL 0.0-0.2 [facility] Basophils/100 WBC Auto (Bld) Ordered By: Luz Fiore on 05-12-2023 Basophils/100 WBC (Bld) 0.5 % . [facility] Bilirubin Test strip Ql (U)O rdered By: Luz Fiore on 05-12-2023 Bilirubin Ql (U) Negative Negative [facility] Bilirubin.total [Mass/volume ] in Serum or PlasmaOrdered By: Luz Fiore on 05-12-2023 Bilirubin [Mass/Vol] 0.4 mg/dL 0.3-1.[address] [facility] [address] abdomen pelvis wo conon 1 07-12-2022 CT abdomen pelvis wo con [facility] Main [place] [address] [place] [id number] Scan Report Signed Patient: Bhavna Kovacs MR#: [id number] 668 : 2000 Acct:[id number] Age/Sex: 22 / F ADM Date: 05/12/23 Loc: ER Room: Type: PRE ER Attending Dr: Copies to: Luz Fiore DO Ordering Provider: Luz Fiore DO Date of Service: 05/12/23 CT/CT abdomen pelvis wo con: f CT ABDOMEN AND PELVIS WITHOUT INTRAVENOUS CONTRAST: CLINICAL HISTORY: Back pain. COMPARISON: CT abdomen and pelvis 07/10/2021 TECHNIQUE: Spiral images were obtained through the abdomen and pelvis without intravenous contrast. This CT exam was performed using one or more following dose reduction techniques: Automated exposure control, adjustment of the mA and/or kV according to patient size, or use of iterative reconstruction technique. FINDINGS: Lung Bases: [No acute findings.] Organs:Suboptimal evaluation due to lack of IV contrast. Liver gallbladder spleen pancreas and adrenal glands all appear unremarkable. Bilateral nephrolithiasis, largest stone measures 3.5 mm in volving the right kidney. No hydronephrosis. Abdominal aorta appears normal in caliber.[ GI: Stomach is grossly unremarkable. Small bowel appears nondilated. Appendix is normal. No acute colonic abnormality.[ Pelvis:[Urinary bladder is grossly unremarkable. Uterus is grossly unremarkable. No adnexal mass.] Peritoneum/Retroperitoneu m:No free air, free fluid or lymphadenopathy.[ Abd wall/Bones:Abdominal wall demonstrates no acute findings. Osseous structures demonstrate no acute bony process.[ CT/CT abdomen pelvis wo con IMPRESSION: Bilateral nephrolithiasis. No obstructive uropathy. Impression dictated by: Aman So Jr., D.O.05/12/2023 2:53 PM Dictation Location: [place] [address] Transcribed By: [facility] 05/12/23 1459 Dictated By: Aman So Jr, DO 05/12/23 1447 Signed By: 05/12/23 1453 Normal [facility] Calcium [Mass/volume] in Ser um or PlasmaOrdered By: Luz Fiore on 05-12-2023 Calcium [Mass/Vol] 9.4 mg/dL 8.6-10.3 [facility] Carbon dioxide, total [Moles /volume] in Serum or PlasmaOrdered By: Luz Fiore on 05-12-2023 CO2 [Moles/Vol] 28.5 mmol/L 21.0-31.0 [facility] Chloride [Moles/volume] in S alexis or PlasmaOrdered By: Luz Fiore on 05-12-2023 Chloride [Moles/Vol] 105 mmol/L 98-107 [facility] Color Auto (U)Ordered By: Giovanni Fiore on 05-12-2023 Color (U) Yellow Yellow [facility] Complete Blood Count Auto Di ffon 05-12-2023 Basophils (Bld) [#/Vol] 0.0 10*3/uL Normal 0.0-0.2 [facility] Comment on above: Result Comment: PERF ORMED BY: [facility] [address] [place] [address] PATHOLOGIST HEAD OF BUSINESS DEVELOPMENT JOSE LUZ M.D. Performed By: #### C MP, CBC ####[address] Basophils/100 WBC (Bld) 0.5 % Normal . [facility] Comment on above: Performed By: #### C MP, CBC ####[address] Eosinophils (Bld) [#/Vol] 0.0 10*3/uL Normal 0.0-0.45 [facility] Comment on above: Performed By: #### C MP, CBC ####[address] Eosinophils/100 WBC (Bld) 0.5 % Normal . [facility] Comment on above: Performed By: #### C MP, CBC ####[address] Erythrocyte distribution width (RBC) [Ratio] 14.2 % Normal 11.9-15.3 [facility] Comment on above: Performed By: #### C MP, CBC ####[address] Hematocrit (Bld) [Volume fraction] 38.0 % Normal 34.0-46.4 [facility] Comment on above: Performed By: #### C MP, CBC ####[address] Hemoglobin (Bld) [Mass/Vol] 12.8 g/dL Normal 11.8-15.4 [facility] Comment on above: Performed By: #### C MP, CBC ####[address] Lymphocytes (Bld) [#/Vol] 3.2 10*3/uL Normal 1.00-4.8 [facility] Comment on above: Performed By: #### C MP, CBC ####[address] Lymphocytes/100 WBC (Bld) 35.0 % Normal . [facility] Comment on above: Performed By: #### C MP, CBC ####[address] MCH (RBC) [Entitic mass] 28.4 pg Normal 24.7-34.3 [facility] Comment on above: Performed By: #### C MP, CBC ####[address] MCV (RBC) [Entitic vol] 84.2 fL Normal 80-100 [facility] Comment on above: Performed By: #### C MP, CBC ####[address] Mean Corpuscular HGB Conc 33.7 g/dL Normal 32.0-35.0 [facility] Comment on above: Performed By: #### C MP, CBC ####[address] Monocytes (Bld) [#/Vol] 0.5 10*3/uL Normal 0.0-0.8 [facility] Comment on above: Performed By: #### C MP, CBC ####[address] Monocytes/100 WBC (Bld) 19.05 % Normal 0.00-20.00 [facility] Comment on above: Performed By: #### C MP, CBC ####[address] Monocytes/100 WBC (Bld) 5.1 % Normal . [facility] Comment on above: Performed By: #### C MP, CBC ####[address] Neutrophils (Bld) [#/Vol] 5.4 10*3/uL Normal 1.8-7.7 [facility] Comment on above: Performed By: #### C MP, CBC ####[address] Neutrophils/100 WBC (Bld) 58.9 % Normal . [facility] Comment on above: Performed By: #### C MP, CBC ####[address] NRBC% 0.1 /100{WBC} Normal 0-0.5 [facility] Comment on above: Performed By: #### C MP, CBC ####[address] Platelet mean volume (Bld) [Entitic vol] 7.6 fL Normal 6.3-10.7 [facility] Comment on above: Performed By: #### C MP, CBC ####[place] [id number] [facility] Platelets (Bld) [#/Vol] 280 10*3/uL Normal 150-450 [facility] Comment on above: Performed By: #### C MP, CBC ####[address] RBC (Bld) [#/Vol] 4.51 10*6/uL Normal 3.60-5.00 [facility] Comment on above: Performed By: #### C MP, CBC ####[address] [address] [facility] WBC (Bld) [#/Vol] 9.1 10*3/uL Normal 3.8-11.6 [facility] Comment on above: Performed By: #### C MP, CBC ####[address] [address] [facility] Comprehensive Metabolic Pane elvis 05-12-2023 Albumin [Mass/Vol] 4.6 g/dL Normal 3.5-5.7 [facility] Comment on above: Performed By: #### C MP, CBC ####[place] [id number] [facility] Albumin/Globulin [Mass ratio] 1.5 {ratio} Normal [facility] Comment on above: Performed By: #### C MP, CBC ####[address] [address] [facility] ALP [Catalytic activity/Vol] 56 U/L Normal 34-104 [facility] Comment on above: Performed By: #### C MP, CBC ####[place] [id number] [facility] ALT [Catalytic activity/Vol] 8 U/L Normal 7-52 [facility] Comment on above: Performed By: #### C MP, CBC ####[place] [id number] [facility] Anion gap [Moles/Vol] Not performed Normal 6.0-15.0 [facility] Comment on above: Performed By: #### C MP, CBC ####[place] [id number] [facility] Aspartate Amino Transferase Normal 13-39 [facility] Comment on above: Result Comment: Spec imen hemolyzed, redraw requested Results called at 1459 on 05/12/23 Performed By: #### C MP, CBC ####[address] [place] [address] [facility] Bilirubin [Mass/Vol] 0.4 mg/dL Normal 0.3-1.0 [facility] Comment on above: Performed By: #### C MP, CBC ####[place] [id number] [facility] Calcium [Mass/Vol] 9.4 mg/dL Normal 8.6-10.3 [facility] Comment on above: Performed By: #### C MP, CBC ####[place] [id number] [facility] Chloride [Moles/Vol] 105 mmol/L Normal 98-107 [facility] Comment on above: Performed By: #### C MP, CBC ####[place] [id number] [facility] CO2 [Moles/Vol] 28.5 mmol/L Normal 21.0-31.0 [facility] Comment on above: Performed By: #### C MP, CBC ####[place] [id number] [facility] Creatinine [Mass/Vol] 0.85 mg/dL Normal 0.60-1.20 [facility] Comment on above: Performed By: #### C MP, CBC ####[place] [id number] [facility] Creatinine Clr Calc Pharmacy 79.00 [facility] Comment on above: Result Comment: PERF ORMED BY: [facility] [address] [place] [id number] PATHOLOGIST HEAD OF BUSINESS DEVELOPMENT JOSE LUZ M.D. Performed By: #### C MP, CBC ####[place] [id number] [facility] GFR/1.73 sq M.predicted MDRD (S/P/Bld) [Vol rate/Area] mL/min/{1.73_m2} [facility] Comment on above: Performed By: #### C MP, CBC ####[place] [id number] [place] Globulin (S) [Mass/Vol] 3.1 g/dL Normal [facility] Comment on above: Performed By: #### C MP, CBC ####[place] [address] [place] [address] [facility] Glucose [Mass/Vol] 95 mg/dL Normal 70-100 [facility] Comment on above: Result Comment: [place] Glucose Reference Range is dependent on time and content of last meal. Glucose of more than 200 mg/dL in a nonstressed, ambulatory subject supports the diagnosis of Diabetes Mellitus. ADA recommended reference range Performed By: #### C MP, CBC ####[place] [address] [place] [address] [facility] Potassium Normal 3.5-5.1 [facility] Comment on above: Result Comment: Spec imen hemolyzed, redraw requested Results called at 1459 on 05/12/23 Performed By: #### C MP, CBC ####[place] [address] [place] [address] [facility] Protein [Mass/Vol] 7.7 g/dL Normal 6.4-8.9 [facility] Comment on above: Performed By: #### C MP, CBC ####[place] [address] [place] [address] [facility] Sodium [Moles/Vol] 140 mmol/L Normal 136-145 [facility] Comment on above: Performed By: #### C MP, CBC ####[address] [address] [facility] Urea nitrogen [Mass/Vol] 11 mg/dL Normal 7-25 [facility] Comment on above: Performed By: #### C MP, CBC ####[address] [address] [place] Creatinine [Mass/volume] in Serum or PlasmaOrdered By: Luz Fiore on 05-12-2023 Creatinine [Mass/Vol] 0.85 mg/dL 0.60-1.20 [facility] Dipstick and Microscopicon 1 07-12-2022 Appearance (U) Cloudy Critically abnormal Clear [facility] Comment on above: Order Comment: Name Collection Type:: Clean-Voided Midstream Performed By: #### A DDONUAPLUS, UHCG #### [facility] [address] [place] [address] [place] Bacteria,Urine 1+ High None Seen [facility] Comment on above: Order Comment: Name Collection Type:: Clean-Voided Midstream Performed By: #### A DDONUAPLUS, UHCG #### [place] [address] [place] Bilirubin,Urine Negative Normal Negative [facility] Comment on above: Order Comment: Name Collection Type:: Clean-Voided Midstream Performed By: #### A DDONUAPLUS, UHCG #### [place] [address] [place] Color (U) Yellow Normal Yellow [facility] Comment on above: Order Comment: Name Collection Type:: Clean-Voided Midstream Performed By: #### A DDONUAPLUS, UHCG #### [address] Glucose Ql (U) Normal Normal Normal [facility] Comment on above: Order Comment: Name Collection Type:: Clean-Voided Midstream Performed By: #### A DDONUAPLUS, UHCG #### [place] [address] [place] Hyaline Casts,Urine 0-8 Normal 0-8 [facility] Comment on above: Order Comment: Name Collection Type:: Clean-Voided Midstream Performed By: #### A DDONUAPLUS, UHCG #### [place] [address] [place] Ketones Ql (U) Trace High Negative [facility] Comment on above: Order Comment: Name Collection Type:: Clean-Voided Midstream Performed By: #### A DDONUAPLUS, UHCG #### [place] [address] [place] Leukocyte esterase Test strip Ql (U) Negative Normal Negative [facility] Comment on above: Order Comment: Name Collection Type:: Clean-Voided Midstream Performed By: #### A DDONUAPLUS UHCG #### [place] [address] [place] Nitrite,Urine Negative Normal Negative [facility] Comment on above: Order Comment: Name Collection Type:: Clean-Voided Midstream Performed By: #### A DDONUAPLUS, UHCG #### [address] Occult Blood,Urine Trace High Negative [facility] Comment on above: Order Comment: Name Collection Type:: Clean-Voided Midstream Performed By: #### A DDONUAPLUS, UHCG #### [address] pH (U) 7.0 [pH] Normal 5.0-9.0 [facility] Comment on above: Order Comment: Name Collection Type:: Clean-Voided Midstream Performed By: #### A DDONUAPLUS, UHCG #### [place] [address] [place] Protein,Urine Negative Normal Negative [facility] Comment on above: Order Comment: Name Collection Type:: Clean-Voided Midstream Performed By: #### A DDONUAPLUS, UHCG #### [place] [address] [place] RBC,Urine 5-9 High 0-4 [facility] Comment on above: Order Comment: Name Collection Type:: Clean-Voided Midstream Performed By: #### A DDONUAPLUS, UHCG #### [address] Specificy [place],Urine 1.022 Normal 1.001-1.030 [facility] Comment on above: Order Comment: Name Collection Type:: Clean-Voided Midstream Performed By: #### A DDONUAPLUS, UHCG #### [place] [address] [place] Squamous Epithelial Cell,Urine 5-9 High 0-2 [facility] Comment on above: Order Comment: Name Collection Type:: Clean-Voided Midstream Performed By: #### A DDONUAPLUS, UHCG #### [facility] [address] Urobilinogen,Urine Normal Normal Normal [facility] Comment on above: Order Comment: Name Collection Type:: Clean-Voided Midstream Performed By: #### A DDONUAPLUS, UHCG #### [facility] [address] [place] [id number] [facility] WBC,Urine 5-9 High 0-4 [facility] Comment on above: Order Comment: Name Collection Type:: Clean-Voided Midstream Performed By: #### A DDONUAPLUS, CG #### [facility] [address] ECG 12 lead ECGon 05-12-2023 ECG 12 lead ECG [facility] Main [place] [address] [place] [address] Electrocardiograph Report Signed Patient: Bhavna Kovacs MR#: [id number] 668 : 2000 Acct:[id number] Age/Sex: 22 / F ADM Date: 05/12/23 Loc: ER Room: Type: PRE ER Attending Dr: Ordering Provider: Luz Fiore DO Date of Service: 05/12/23 ECG/ECG 12 lead ECG: Seizure Copies to: Test Reason : Blood Pressure : 120/079 mmHG Vent. Rate : 072 BPM Atrial Rate : 072 BPM P-R Int : 150 ms QRS Dur : 084 ms QT Int : 352 ms P-R-T Axes : 074 087 074 degrees QTc Int : 385 ms Normal sinus rhythm with sinus arrhythmia Biatrial enlargement Abnormal ECG When compared with ECG of 12-APR-2023 12:21, No significant change was found Confirmed by LUZ FIORE DO ([id number]) on 05/12/2023 2:57:31 PM Referred By: Electronically Signed By:LUZ FIORE DO Transcribed By: MUS Signed By Luz Fiore DO 05/12 1457 Normal [facility] Eosinophils Auto (Bld) [#/Vo l]Ordered By: Luz Fiore on 05-12-2023 Eosinophils (Bld) [#/Vol] 0.0 10*3/uL 0.0-0.45 [facility] Eosinophils/100 WBC Auto (Bl d)Ordered By: Luz Fiore on 05-12-2023 Eosinophils/100 WBC (Bld) 0.5 % . [facility] Erythrocyte distribution wid th Auto (RBC) [Ratio]Ordered By: Luz Fiore on 05-12-2023 Erythrocyte distribution width (RBC) [Ratio] 14.2 % 11.9-15.3 [facility] Globulin Calc (S) [Mass/Vol] Ordered By: Luz Fiore on 05-12-2023 Globulin (S) [Mass/Vol] 3.1 g/dL [facility] Glucose [Mass/volume] in Ser um or PlasmaOrdered By: uLz Fiore on 05-12-2023 Glucose [Mass/Vol] 95 mg/dL 70-100 [facility] Comment on above: ADA recommended refe rence rangeRandom Glucose Reference Range is dependent on time and content of last meal. Glucose of more than 200 mg/dL in a nonstressed, ambulatory subject supports the diagnosis of Diabetes Mellitus. HCG ( test) [place].rapi d Ql (U)Ordered By: Luz Fiore on 05-12-2023 HCG ( test) Ql (U) Negative [facility] HCG,Urineon 05-12-2023 Beta HCG ( test) Ql (U) Negative Normal [facility] Comment on above: Order Comment: Name Collection Type:: Clean-Voided Midstream Result Comment: PERF ORMED BY: [place] [address] PATHOLOGIST HEAD OF BUSINESS DEVELOPMENT JOSE LUZ M.D. Performed By: #### A DDONUAPLUS, [facility] #### [address] Hematocrit Auto (Bld) [Volum e fraction]Ordered By: Luz Fiore on 05-12-2023 Hematocrit (Bld) [Volume fraction] 38.0 % 34.0-46.4 [facility] Hemoglobin [Mass/volume] in BloodOrdered By: Luz Fiore on 05-12-2023 Hemoglobin (Bld) [Mass/Vol] 12.8 g/dL 11.8-15.4 [facility] Ketones Auto test strip (U) [Mass/Vol]Ordered By: Luz Fiore on 05-12-2023 Ketones (U) [Mass/Vol] Trace Negative [facility] Laboratory - UrinalysisOrder ed By: Luz Fiore on 05-12-2023 Hyaline casts LM Ql (Urine sed) 0-8 [LPF] 0-8 [facility] Leukocytes [#/volume] correc manjula for nucleated erythrocytes in Blood by Automated counOrdered By: Luz Fiore on 05-12-2023 WBC corrected for nucl RBC Auto (Bld) [#/Vol] 9.1 10*3/uL 3.8-11.6 [facility] Lymphocytes Auto (Bld) [#/Vo l]Ordered By: Luz Fiore on 05-12-2023 Lymphocytes (Bld) [#/Vol] 3.2 10*3/uL 1.00-4.8 [facility] Lymphocytes/100 WBC Auto (Bl d)Ordered By: Luz Fiore on 05-12-2023 Lymphocytes/100 WBC (Bld) 35.0 % . [facility] MCH Auto (RBC) [Entitic mass ]Ordered By: Luz Fiore on 05-12-2023 MCH (RBC) [Entitic mass] 28.4 pg 24.7-34.3 [facility] MCHC Auto (RBC) [Mass/Vol]Or dered By: Luz Fiore on 05-12-2023 MCHC (RBC) [Mass/Vol] 33.7 g/dL 32.0-35.0 [facility] MCV Auto (RBC) [Entitic vol] Ordered By: Luz Fiore on 05-12-2023 MCV (RBC) [Entitic vol] 84.2 fL 80-100 [facility] Monocyte distribution width [Entitic volume] in Blood by AutomatedOrdered By: Luz Fiore on 05-12-2023 Monocyte distribution width Auto (Bld) [Entitic vol] 19.05 % 0.00-20.00 [facility] Monocytes Auto (Bld) [#/Vol] Ordered By: Luz Fiore on 05-12-2023 Monocytes (Bld) [#/Vol] 0.5 10*3/uL 0.0-0.8 [facility] Monocytes/100 WBC Auto (Bld) Ordered By: Luz Fiore on 05-12-2023 Monocytes/100 WBC (Bld) 5.1 % . [facility] Neutrophils Auto (Bld) [#/Vo l]Ordered By: Luz Fiore on 05-12-2023 Neutrophils (Bld) [#/Vol] 5.4 10*3/uL 1.8-7.7 [facility] Neutrophils/100 WBC Auto (Bl d)Ordered By: Luz Fiore on 05-12-2023 Neutrophils/100 WBC (Bld) 58.9 % . [facility] Nitrite Test strip Ql (U)Ord ered By: Luz Fiore on 05-12-2023 Nitrite Ql (U) Negative Negative [facility] No Panel InformationOrdered By: Luz Fiore on 05-12-2023 Estimated GFR (CKD-EPI) > 60.0 mL/Min [facility] Creatinine Clearance (Chem 79.00 [facility] Nucleated erythrocytes [Pres ence] in Blood by Automated countOrdered By: Luz Fiore on 05-12-2023 Nucleated RBC Auto Ql (Bld) 0.1 /100{WBC} 0-0.5 [facility] Platelet mean volume Auto (B ld) [Entitic vol]Ordered By: Luz Fiore on 05-12-2023 Platelet mean volume (Bld) [Entitic vol] 7.6 fL 6.3-10.7 [facility] Platelets Auto (Bld) [#/Vol] Ordered By: Luz Fiore on 05-12-2023 Platelets (Bld) [#/Vol] 280 10*3/uL 150-450 [facility] Potassium [Moles/volume] in Serum or PlasmaOrdered By: Luz Fiore on 05-12-2023 Potassium [Moles/Vol] 4.0 mmol/L 3.5-5.1 [facility] Protein Auto test strip (U) [Mass/Vol]Ordered By: Luz Fiore on 05-12-2023 Protein (U) [Mass/Vol] Negative Negative [facility] Protein [Mass/volume] in Ser um or PlasmaOrdered By: Luz Fiore on 05-12-2023 Protein [Mass/Vol] 7.7 g/dL 6.4-8.9 [facility] RBC Auto (Bld) [#/Vol]Ordere d By: Luz Fiore on 05-12-2023 RBC (Bld) [#/Vol] 4.51 10*6/uL 3.60-5.00 [facility] Redraw Mariaelena 05-12-2023 AST [Catalytic activity/Vol] 14 U/L Normal 13-39 [facility] Comment on above: Result Comment: PERF ORMED BY: [facility] [address] [place] [address] PATHOLOGIST HEAD OF BUSINESS DEVELOPMENT JOSE LUZ M.D. Performed By: #### R EDRAW AST, REDRAW K ####[facility] [id number] [place] [id number] [facility] Redraw Potassiumon 3 Potassium [Moles/Vol] 4.0 mmol/L Normal 3.5-5.1 [facility] Comment on above: Performed By: #### R EDRAW AST, REDRAW K ####[facility] [id number] Serum or plasma albumin/glob ulin mass ratioOrdered By: Luz Fiore on 05-12-2023 Albumin/Globulin [Mass ratio] 1.5 {ratio} [facility] Serum or plasma anion gap de terminationOrdered By: Luz Fiore on 05-12-2023 Anion gap [Moles/Vol] TNP [facility] Comment on above: Test not performed Sodium [Moles/volume] in Ser um or PlasmaOrdered By: Luz Fiore on 05-12-2023 Sodium [Moles/Vol] 140 mmol/L 136-145 [facility] Specific gravity Auto test s trip (U) [Rel density]Ordered By: Luz Fiore on 05-12-2023 Specific gravity (U) [Rel density] 1.022 1.001-1.030 [facility] Squamous epithelial cells de tection in urine sediment by light microscopyOrdered By: Luz Fiore on 05-12-2023 Epithelial cells.squamous LM Ql (Urine sed) 5-9 [HPF] 0-2 [facility] Urea nitrogen [Mass/volume] in Serum or PlasmaOrdered By: Luz Fiore on 05-12-2023 Urea nitrogen [Mass/Vol] 11 mg/dL 7-25 [facility] Urine bacteria detection by automated methodOrdered By: Luz Fiore on 05-12-2023 Bacteria Auto Ql (U) 1+ None Seen [facility] Urine clarity by refractomet ry automatedOrdered By: Luz Fiore on 05-12-2023 Clarity Refractometry automated (U) Cloudy Clear [facility] Urine glucose measurement by automated test strip (mass/volume)Ordered By: Luz Fiore on 05-12-2023 Glucose Auto test strip (U) [Mass/Vol] Normal mg/dL Normal [facility] Urine hemoglobin detection b y automated test stripOrdered By: Luz Fiore on 05-12-2023 Hemoglobin Auto test strip Ql (U) Trace Negative [facility] Urine leukocyte esterase det ection by automated test stripOrdered By: Luz Fiore on 05-12-2023 Leukocyte esterase Auto test strip Ql (U) Negative Negative [facility] Urobilinogen Auto test strip (U) [Mass/Vol]Ordered By: Luz Fiore on 05-12-2023 Urobilinogen (U) [Mass/Vol] Normal mg/dL Normal [facility] WBC Auto (Bld) [#/Vol]Ordere d By: Luz Fiore on 05-12-2023 WBC (Bld) [#/Vol] 9.1 10*3/uL 3.8-11.6 [facility] pH Auto test strip (U)Ordere d By: Luz Fiore on 05-12-2023 pH (U) 7.0 [pH] 5.0-9.0 [facility] Alanine aminotransferase [En zymatic activity/volume] in Serum or PlasmaOrdered By: Mario Alberto Jose on 04-12-2023 ALT [Catalytic activity/Vol] 8 U/L Normal 7-52 [facility] Comment on above: Performed By: #### C MP, CBC #### [address] Albumin [Mass/volume] in Ser um or Plasma by Bromocresol green (BCG) dye binding methoOrdered By: Mario Alberto Damon on 04-12-2023 Albumin BCG dye [Mass/Vol] 4.9 g/dL 3.5-5.7 [facility] Alkaline phosphatase [Enzyma tic activity/volume] in Serum or PlasmaOrdered By: Mario Alberto Jose on 04-12-2023 ALP [Catalytic activity/Vol] 69 U/L Normal 34-104 [facility] Comment on above: Performed By: #### C MP, CBC #### [address] Aspartate aminotransferase [ Enzymatic activity/volume] in Serum or PlasmaOrdered By: Mario Alberto Jose on 04-12-2023 AST [Catalytic activity/Vol] 18 U/L Normal 13-39 [facility] Comment on above: Performed By: #### C MP, CBC #### [address] Automated basophil %Ordered By: Mario Alberto Jose on 04-12-2023 Basophils/100 WBC (Bld) 0.4 % Normal . [facility] Comment on above: Performed By: #### C MP, CBC #### [address] Automated basophil countOrde red By: Mario Alberto Jose on 04-12-2023 Basophils (Bld) [#/Vol] 0.0 10*3/uL Normal 0.0-0.2 [facility] Comment on above: Result Comment: PERF ORMED BY: [place] [address] PATHOLOGIST HEAD OF BUSINESS DEVELOPMENT JOSE LUZ M.D. Performed By: #### C MP, CBC #### [address] Automated blood monocyte cou ntOrdered By: Mario Alberto Jose on 04-12-2023 Monocytes (Bld) [#/Vol] 0.5 10*3/uL Normal 0.0-0.8 [facility] Comment on above: Performed By: #### C MP, CBC #### [address] Automated eosinophil %Ordere d By: Mario Alberto Jose on 04-12-2023 Eosinophils/100 WBC (Bld) 0.5 % Normal . [facility] Comment on above: Performed By: #### C MP, CBC #### [facility] [address] Automated eosinophil countOr dered By: Mario Alberto Jose on 04-12-2023 Eosinophils (Bld) [#/Vol] 0.0 10*3/uL Normal 0.0-0.45 [facility] Comment on above: Performed By: #### C MP, CBC #### [facility] [address] Automated monocyte %Ordered By: Mario Alberto Jose on 04-12-2023 Monocytes/100 WBC (Bld) 5.6 % Normal . [facility] Comment on above: Performed By: #### C MP, CBC #### [address] Automated neutrophil %Ordere d By: Mario Alberto Jose on 04-12-2023 Neutrophils/100 WBC (Bld) 68.1 % Normal . [facility] Comment on above: Performed By: #### C MP, CBC #### [address] Bilirubin.total [Mass/volume ] in Serum or PlasmaOrdered By: Mario Alberto Jose on 04-12-2023 Bilirubin [Mass/Vol] 0.3 mg/dL Normal 0.3-1.0 [facility] Comment on above: Performed By: #### C MP, CBC #### [facility] [address] [place] [address] [place] Calcium [Mass/volume] in Ser um or PlasmaOrdered By: Mario Alberto Jose on 04-12-2023 Calcium [Mass/Vol] 9.9 mg/dL Normal 8.6-10.3 [facility] Comment on above: Performed By: #### C MP, CBC #### [place] [address] [place] Carbon dioxide, total [Moles /volume] in Serum or PlasmaOrdered By: Mario Alberto Jose on 10-17-2023 CO2 [Moles/Vol] 27.5 mmol/L Normal 21.0-31.0 [facility] Comment on above: Performed By: #### C MP, CBC #### [facility] [address] [place] [address] Chloride [Moles/volume] in S alexis or PlasmaOrdered By: Mario Alberto Jose on 04-12-2023 Chloride [Moles/Vol] 104 mmol/L Normal 98-107 [facility] Comment on above: Performed By: #### C MP, CBC #### [address] Complete Blood Count Auto Di ffon 04-12-2023 Mean Corpuscular HGB Conc 33.3 g/dL Normal 32.0-35.0 [facility] Comment on above: Performed By: #### C MP, CBC #### [facility] [address] [place] [address] Monocytes/100 WBC (Bld) 15.89 % Normal 0.00-20.00 [facility] Comment on above: Performed By: #### C MP, CBC #### [facility] [address] [place] [address] NRBC% 0.1 /100{WBC} Normal 0-0.5 [facility] Comment on above: Performed By: #### C MP, CBC #### [facility] [address] [place] [address] Comprehensive Metabolic Pane elvis 04-12-2023 Albumin [Mass/Vol] 4.9 g/dL Normal 3.5-5.7 [facility] Comment on above: Performed By: #### C MP, CBC #### [facility] [address] [place] [address] [place] Creatinine Clr Calc Pharmacy 73.79 Normal [facility] Comment on above: Result Comment: PERF ORMED BY: [place] [address] PATHOLOGIST [employer]ELOP[employer] JOSE LUZ M.D. Performed By: #### C MP, CBC #### [address] GFR/1.73 sq M.predicted MDRD (S/P/Bld) [Vol rate/Area] mL/min/{1.73_m2} [facility] Comment on above: Performed By: #### C MP, CBC #### [facility] [address] Creatinine [Mass/volume] in Serum or PlasmaOrdered By: Mario Alberto Jose on 04-12-2023 Creatinine [Mass/Vol] 0.91 mg/dL Normal 0.60-1.20 [facility] Comment on above: Performed By: #### C MP, CBC #### [facility] [address] ECG 12 lead ECGon 04-12-2023 ECG 12 lead ECG [facility] Main [place] [address] [place] [address] Electrocardiograph Report Signed Patient: Bhavna Kovacs MR#: [id number] 668 : 2000 Acct:[id number] Age/Sex: 22 / F ADM Date: 04/12/23 Loc: ER Room: Type: [facility] ER Attending Dr: Ordering Provider: Mario Alberto Jose MD Date of Service: 04/12/23 ECG/ECG 12 lead ECG: Seizure Copies to: Test Reason : Blood Pressure : 121/083 mmHG Vent. Rate : 077 BPM Atrial Rate : 077 BPM P-R Int : 146 ms QRS Dur : 082 ms QT Int : 350 ms P-R-T Axes : 075 088 069 degrees QTc Int : 396 ms Normal sinus rhythm with sinus arrhythmia Right atrial enlargement Borderline ECG When compared with ECG of 23-MAR-2023 12:33, No significant change was found Confirmed by MARIO ALBERTO JOSE MD ([id number]) on 04/12/2023 3:00:34 PM Referred By: Electronically Signed By:MARIO ALBERTO JOSE MD Transcribed By: MUS Signed By Mario Alberto Jose MD 04/12/23 1500 [facility] Erythrocyte distribution wid th [Ratio] by Automated countOrdered By: aMrio Alberto Jose on 04-12-2023 Erythrocyte distribution width (RBC) [Ratio] 14.8 % Normal 11.9-15.3 [facility] Comment on above: Performed By: #### C MP, CBC #### [facility] [address] [place] [address] [place] Erythrocytes [#/volume] in B lood by Automated countOrdered By: Mario Alberto Jose on 04-12-2023 RBC (Bld) [#/Vol] 4.78 10*6/uL Normal 3.60-5.00 [facility] Comment on above: Performed By: #### C MP, CBC #### [facility] [address] [place] [address] [place] Glucose [Mass/volume] in Ser um or PlasmaOrdered By: Mario Alberto Jose on 04-12-2023 Glucose [Mass/Vol] 92 mg/dL Normal 70-100 [facility] Comment on above: ADA recommended refe rence rangeRandom Glucose Reference Range is dependent on time and content of last meal. Glucose of more than 200 mg/dL in a nonstressed, ambulatory subject supports the diagnosis of Diabetes Mellitus. Result Comment: [place] [facility] Glucose Reference Range is dependent on time and content of last meal. Glucose of more than 200 mg/dL in a nonstressed, ambulatory subject supports the diagnosis of Diabetes Mellitus. ADA recommended reference range Performed By: #### C MP, CBC #### [facility] [address] [place] [address] [place] Hematocrit [Volume Fraction] of Blood by Automated countOrdered By: Mario Alberto Jose on 04-12-2023 Hematocrit (Bld) [Volume fraction] 40.6 % Normal 34.0-46.4 [facility] Comment on above: Performed By: #### C MP, CBC #### [facility] [address] [place] [address] [place] Hemoglobin [Mass/volume] in BloodOrdered By: Mario Alberto Jose on 04-12-2023 Hemoglobin (Bld) [Mass/Vol] 13.5 g/dL Normal 11.8-15.4 [facility] Comment on above: Performed By: #### C MP, CBC #### [facility] [address] [place] [address] [place] Leukocytes [#/volume] correc manjula for nucleated erythrocytes in Blood by Automated counOrdered By: Mario Alberto Jose on 04-12-2023 WBC corrected for nucl RBC Auto (Bld) [#/Vol] 9.7 10*3/uL 3.8-11.6 [facility] Leukocytes [#/volume] in Blo od by Automated countOrdered By: Mario Alberto Jose on 04-12-2023 WBC (Bld) [#/Vol] 9.7 10*3/uL Normal 3.8-11.6 [facility] Comment on above: Performed By: #### C MP, CBC #### [address] Lymphocytes [#/volume] in Bl ood by Automated countOrdered By: Mario Alberto Jose on 04-12-2023 Lymphocytes (Bld) [#/Vol] 2.5 10*3/uL Normal 1.00-4.8 [facility] Comment on above: Performed By: #### C MP, CBC #### [facility] [address] [place] [address] Lymphocytes/100 leukocytes i n Blood by Automated countOrdered By: Mario Alberto Jose on 04-12-2023 Lymphocytes/100 WBC (Bld) 25.4 % Normal . [facility] Comment on above: Performed By: #### C MP, CBC #### [address] MCH [Entitic mass] by Automa manjula countOrdered By: Mario Alberto Jose on 04-12-2023 MCH (RBC) [Entitic mass] 28.2 pg Normal 24.7-34.3 [facility] Comment on above: Performed By: #### C MP, CBC #### [address] MCHC Auto (RBC) [Mass/Vol]Or dered By: Mario Alberto Jose on 04-12-2023 MCHC (RBC) [Mass/Vol] 33.3 g/dL 32.0-35.0 [facility] MCV [Entitic volume] by Auto mated countOrdered By: Mario Alberto Jose on 04-12-2023 MCV (RBC) [Entitic vol] 84.9 fL Normal 80-100 [facility] Comment on above: Performed By: #### C MP, CBC #### [address] Monocyte distribution width [Entitic volume] in Blood by AutomatedOrdered By: Mario Alberto Jose on 04-12-2023 Monocyte distribution width Auto (Bld) [Entitic vol] 15.89 % 0.00-20.00 [facility] Neutrophils [#/volume] in Bl ood by Automated countOrdered By: Mario Alberto Jose on 04-12-2023 Neutrophils (Bld) [#/Vol] 6.6 10*3/uL Normal 1.8-7.7 [facility] Comment on above: Performed By: #### C MP, CBC #### [address] No Panel InformationOrdered By: Mario Alberto Jose on 04-12-2023 Estimated GFR (CKD-EPI) > 60.0 mL/Min [facility] Creatinine Clearance (Chem 73.79 [facility] Nucleated erythrocytes [Pres ence] in Blood by Automated countOrdered By: Mario Alberto Jose on 04-12-2023 Nucleated RBC Auto Ql (Bld) 0.1 /100{WBC} 0-0.5 [facility] Platelet mean volume [Entiti c volume] in Blood by Automated countOrdered By: Mario Alberto Jose on 04-12-2023 Platelet mean volume (Bld) [Entitic vol] 7.7 fL Normal 6.3-10.7 [facility] Comment on above: Performed By: #### C MP, CBC #### [facility] [address] [place] [address] [place] Platelets [#/volume] in Bloo d by Automated countOrdered By: Mario Alberto Jose on 04-12-2023 Platelets (Bld) [#/Vol] 307 10*3/uL Normal 150-450 [facility] Comment on above: Performed By: #### C MP, CBC #### [address] Potassium [Moles/volume] in Serum or PlasmaOrdered By: Mario Alberto Jose on 04-12-2023 Potassium [Moles/Vol] 4.1 mmol/L Normal 3.5-5.1 [facility] Comment on above: Performed By: #### C MP, CBC #### [address] Protein [Mass/volume] in Ser um or PlasmaOrdered By: Mario Alberto Jose on 04-12-2023 Protein [Mass/Vol] 8.4 g/dL Normal 6.4-8.9 [facility] Comment on above: Performed By: #### C MP, CBC #### [address] Serum globulin measurement b y calculation (mass/volume)Ordered By: Mario Alberto Jose on 04-12-2023 Globulin (S) [Mass/Vol] 3.5 g/dL [facility] Comment on above: Performed By: #### C MP, CBC #### [address] Serum or plasma albumin/glob ulin mass ratioOrdered By: Mario Alberto Jose on 04-12-2023 Albumin/Globulin [Mass ratio] 1.4 {ratio} [facility] Comment on above: Performed By: #### C MP, CBC #### [address] Serum or plasma anion gap de terminationOrdered By: Mario Alberto Jose on 04-12-2023 Anion gap [Moles/Vol] 13.6 mmol/L Normal 6.0-15.0 [facility] Comment on above: Performed By: #### C MP, CBC #### [facility] [address] [place] [address] [place] Sodium [Moles/volume] in Ser um or PlasmaOrdered By: Mario Alberto Jose on 04-12-2023 Sodium [Moles/Vol] 141 mmol/L Normal 136-145 [facility] Comment on above: Performed By: #### C MP, CBC #### [address] Urea nitrogen [Mass/volume] in Serum or PlasmaOrdered By: Mario Alberto Jose on 04-12-2023 Urea nitrogen [Mass/Vol] 9 mg/dL Normal 7-25 [facility] Comment on above: Performed By: #### C MP, CBC #### [facility] [address] Alanine aminotransferase [En zymatic activity/volume] in Serum or PlasmaOrdered By: Milton Rivera on 03-23-2023 ALT [Catalytic activity/Vol] 8 U/L 7-52 [facility] Albumin [Mass/volume] in Ser um or Plasma by Bromocresol green (BCG) dye binding methoOrdered By: Milton Rivera on 03-23-2023 Albumin BCG dye [Mass/Vol] 4.9 g/dL 3.5-5.7 [facility] Alkaline phosphatase [Enzyma tic activity/volume] in Serum or PlasmaOrdered By: Milton Rivera on 03-23-2023 ALP [Catalytic activity/Vol] 59 U/L 34-104 [facility] Aspartate aminotransferase [ Enzymatic activity/volume] in Serum or PlasmaOrdered By: Milton Rivera on 03-23-2023 AST [Catalytic activity/Vol] 20 U/L 13-39 [facility] Basophils Auto (Bld) [#/Vol] Ordered By: Milton Rivera on 03-23-2023 Basophils (Bld) [#/Vol] 0.0 10*3/uL 0.0-0.2 [facility] Basophils/100 WBC Auto (Bld) Ordered By: Milton Rivera on 03-23-2023 Basophils/100 WBC (Bld) 0.5 % . [facility] Bilirubin.total [Mass/volume ] in Serum or PlasmaOrdered By: Milton Rivera on 03-23-2023 Bilirubin [Mass/Vol] 0.4 mg/dL 0.3-1.0 [facility] Calcium [Mass/volume] in Ser um or PlasmaOrdered By: Milton Rivera 03-23-2023 Calcium [Mass/Vol] 9.6 mg/dL 8.6-10.3 [facility] Carbon dioxide, total [Moles /volume] in Serum or PlasmaOrdered By: Milton Rivera on 03-23-2023 CO2 [Moles/Vol] 21.8 mmol/L 21.0-31.0 [facility] Chloride [Moles/volume] in S alexis or PlasmaOrdered By: Milton Rivera on 03-23-2023 Chloride [Moles/Vol] 105 mmol/L 98-107 [facility] Complete Blood Count Auto Di ffon 03-23-2023 Basophils (Bld) [#/Vol] 0.0 10*3/uL Normal 0.0-0.2 [facility] Comment on above: Result Comment: PERF ORMED BY: [place] [address] PATHOLOGIST HEAD OF BUSINESS DEVELOPMENT JOSE LUZ M.D. Performed By: #### C MP, CBC #### [address] Basophils/100 WBC (Bld) 0.5 % Normal . [facility] Comment on above: Performed By: #### C MP, CBC #### [address] Eosinophils (Bld) [#/Vol] 0.0 10*3/uL Normal 0.0-0.45 [facility] Comment on above: Performed By: #### C MP, CBC #### [place] [address] [place] Eosinophils/100 WBC (Bld) 0.4 % Normal . [facility] Comment on above: Performed By: #### C MP, CBC #### [address] Erythrocyte distribution width (RBC) [Ratio] 15.2 % Normal 11.9-15.3 [facility] Comment on above: Performed By: #### C MP, CBC #### [facility] [address] [place] [address] [place] Hematocrit (Bld) [Volume fraction] 41.0 % Normal 34.0-46.4 [facility] Comment on above: Performed By: #### C MP, CBC #### [address] Hemoglobin (Bld) [Mass/Vol] 13.8 g/dL Normal 11.8-15.4 [facility] Comment on above: Performed By: #### C MP, CBC #### [facility] [address] Lymphocytes (Bld) [#/Vol] 3.3 10*3/uL Normal 1.00-4.8 [facility] Comment on above: Performed By: #### C MP, CBC #### [address] Lymphocytes/100 WBC (Bld) 37.2 % Normal . [facility] Comment on above: Performed By: #### C MP, CBC #### [address] MCH (RBC) [Entitic mass] 28.8 pg Normal 24.7-34.3 [facility] Comment on above: Performed By: #### C MP, CBC #### [address] MCV (RBC) [Entitic vol] 85.9 fL Normal 80-100 [facility] Comment on above: Performed By: #### C MP, CBC #### [address] Mean Corpuscular HGB Conc 33.5 g/dL Normal 32.0-35.0 [facility] Comment on above: Performed By: #### C MP, CBC #### [address] Monocytes (Bld) [#/Vol] 0.6 10*3/uL Normal 0.0-0.8 [facility] Comment on above: Performed By: #### C MP, CBC #### [place] [address] [place] Monocytes/100 WBC (Bld) 21.12 % High 0.00-20.00 [facility] Comment on above: Result Comment: For adults in ED, MDW > 20.0 may be associated with a higher risk of sepsis during the first 12 hrs of hospital admission Performed By: #### C MP, CBC #### [place] [address] [place] Monocytes/100 WBC (Bld) 6.9 % Normal . [facility] Comment on above: Performed By: #### C MP, CBC #### [facility] [address] [place] [address] [place] Neutrophils (Bld) [#/Vol] 4.9 10*3/uL Normal 1.8-7.7 [facility] Comment on above: Performed By: #### C MP, CBC #### [facility] [address] [place] [address] [place] Neutrophils/100 WBC (Bld) 55.0 % Normal . [facility] Comment on above: Performed By: #### C MP, CBC #### [facility] [address] NRBC% 0.1 /100{WBC} Normal 0-0.5 [facility] Comment on above: Performed By: #### C MP, CBC #### [facility] [address] Platelet mean volume (Bld) [Entitic vol] 8.6 fL Normal 6.3-10.7 [facility] Comment on above: Performed By: #### C MP, CBC #### [facility] [address] [place] [address] [place] Platelets (Bld) [#/Vol] 257 10*3/uL Normal 150-450 [facility] Comment on above: Performed By: #### C MP, CBC #### [facility] [address] [place] [address] [place] RBC (Bld) [#/Vol] 4.78 10*6/uL Normal 3.60-5.00 [facility] Comment on above: Performed By: #### C MP, CBC #### [facility] [address] [place] [address] [place] WBC (Bld) [#/Vol] 8.9 10*3/uL Normal 3.8-11.6 [facility] Comment on above: Performed By: #### C MP, CBC #### [facility] [address] Comprehensive Metabolic Pane elvis 09-27-2023 Albumin [Mass/Vol] 4.9 g/dL Normal 3.5-5.7 [facility] Comment on above: Performed By: #### C MP, CBC #### [facility] [address] Albumin/Globulin [Mass ratio] 1.5 {ratio} Normal [facility] Comment on above: Performed By: #### C MP, CBC #### [facility] [address] ALP [Catalytic activity/Vol] 59 U/L Normal 34-104 [facility] Comment on above: Performed By: #### C MP, CBC #### [facility] [address] ALT [Catalytic activity/Vol] 8 U/L Normal 7-52 [facility] Comment on above: Performed By: #### C MP, CBC #### [address] Anion gap [Moles/Vol] 16.5 mmol/L High 6.0-15.0 [facility] Comment on above: Performed By: #### C MP, CBC #### [facility] [address] AST [Catalytic activity/Vol] 20 U/L Normal 13-39 [facility] Comment on above: Performed By: #### C MP, CBC #### [facility] [address] [place] [address] [place] Bilirubin [Mass/Vol] 0.4 mg/dL Normal 0.3-1.0 [facility] Comment on above: Performed By: #### C MP, CBC #### [facility] [address] [place] [address] [place] Calcium [Mass/Vol] 9.6 mg/dL Normal 8.6-10.3 [facility] Comment on above: Performed By: #### C MP, CBC #### [facility] [address] Chloride [Moles/Vol] 105 mmol/L Normal 98-107 [facility] Comment on above: Performed By: #### C MP, CBC #### [facility] [address] [place] [address] [place] CO2 [Moles/Vol] 21.8 mmol/L Normal 21.0-31.0 [facility] Comment on above: Performed By: #### C MP, CBC #### [facility] [address] Creatinine [Mass/Vol] 0.79 mg/dL Normal 0.60-1.20 [facility] Comment on above: Performed By: #### C MP, CBC #### [facility] [address] [place] [address] [place] Creatinine Clr Calc Pharmacy 85.00 [facility] Comment on above: Performed By: #### C MP, CBC #### [place] [address] [place] GFR/1.73 sq M.predicted MDRD (S/P/Bld) [Vol rate/Area] mL/min/{1.73_m2} [facility] Comment on above: Performed By: #### C MP, CBC #### [facility] [address] [place] [address] [place] Globulin (S) [Mass/Vol] 3.2 g/dL [facility] Comment on above: Performed By: #### C MP, CBC #### [place] [address] [place] Glucose [Mass/Vol] 81 mg/dL Normal 70-100 [facility] Comment on above: Result Comment: [facility] Glucose Reference Range is dependent on time and content of last meal. Glucose of more than 200 mg/dL in a nonstressed, ambulatory subject supports the diagnosis of Diabetes Mellitus. ADA recommended reference range Performed By: #### C MP, CBC #### [facility] [address] [place] [address] [place] Potassium [Moles/Vol] 4.3 mmol/L Normal 3.5-5.1 [facility] Comment on above: Performed By: #### C MP, CBC #### [place] [address] [place] Protein [Mass/Vol] 8.1 g/dL Normal 6.4-8.9 [facility] Comment on above: Performed By: #### C MP, CBC #### [address] Sodium [Moles/Vol] 139 mmol/L Normal 136-145 [facility] Comment on above: Performed By: #### C MP, CBC #### [facility] [address] [place] [address] Urea nitrogen [Mass/Vol] 12 mg/dL Normal 7-25 [facility] Comment on above: Performed By: #### C MP, CBC #### [address] Creatine Kinaseon 03-23-2023 CK [Catalytic activity/Vol] 45 U/L Normal 30-223 [facility] Comment on above: Result Comment: PERF ORMED BY: [place] [address] PATHOLOGIST HEAD OF BUSINESS DEVELOP[employer] JOSE LUZ M.D. Performed By: #### C MP, CBC #### [address] Creatine kinase [Enzymatic a ctivity/volume] in Serum or PlasmaOrdered By: Milton Rivera on 03-23-2023 CK [Catalytic activity/Vol] 45 U/L 30-223 [facility] Creatinine [Mass/volume] in Serum or PlasmaOrdered By: Milton Rivera on 03-23-2023 Creatinine [Mass/Vol] 0.79 mg/dL 0.60-1.20 [facility] ECG 12 lead ECGon 03-23-2023 ECG 12 lead ECG [facility] Main [place] [address] [place] [address] Electrocardiograph Report Signed Patient: Bhavna Kovacs MR#: [id number] 668 : 2000 Acct:[id number] Age/Sex: 22 / F ADM Date: 03/23/23 Loc: ER Room: Type: [facility] ER Attending Dr: Ordering Provider: Milton Rivera PA-C Date of Service: 03/23/23 ECG/ECG 12 lead ECG: Seizure Copies to: Test Reason : Blood Pressure : 112/076 mmHG Vent. Rate : 086 BPM Atrial Rate : 086 BPM P-R Int : 142 ms QRS Dur : 078 ms QT Int : 336 ms P-R-T Axes : 076 088 067 degrees QTc Int : 402 ms Normal sinus rhythm Biatrial enlargement Confirmed by Bobby Gallagher DO ([id number]) on 03/23/2023 7:47:54 PM Referred By: Electronically Signed By:Bobby Gallagher DO Transcribed By: MUS Signed By Bobby Gallagher DO 1945 Normal [facility] Eosinophils Auto (Bld) [#/Vo l]Ordered By: Milton Rivera on 03-23-2023 Eosinophils (Bld) [#/Vol] 0.0 10*3/uL 0.0-0.45 [facility] Eosinophils/100 WBC Auto (Bl d)Ordered By: Milton Rivera on 03-23-2023 Eosinophils/100 WBC (Bld) 0.4 % . [facility] Erythrocyte distribution wid th Auto (RBC) [Ratio]Ordered By: Milton Rivera on 03-23-2023 Erythrocyte distribution width (RBC) [Ratio] 15.2 % 11.9-15.3 [facility] Globulin Calc (S) [Mass/Vol] Ordered By: Milton Rivera on 03-23-2023 Globulin (S) [Mass/Vol] 3.2 g/dL [facility] Glucose Glucometer (BldC) [M ass/Vol]Ordered By: CRISTIANE SHARMA on 03-23-2023 Glucose [Mass/Vol] 88 mg/dL [facility] Comment on above: Random Glucose Refer ence Range is dependent on time and content of last meal. Glucose of more than 200 mg/dL in a nonstressed, ambulatory subject supports the diagnosis of Diabetes Mellitus. Glucose Poct Glucometerson 0 03-23-2023 Commemt1 Glu2: Cleaned Meter Normal [facility] Comment on above: Result Comment: PERF ORMED BY: [facility] [address] [place] [address] PATHOLOGIST HEAD OF BUSINESS DEVELOPMENT JOSE LUZ M.D. Performed By: #### G LULS ####Point of Care testing, Glucose [Mass/Vol] 88 mg/dL Normal [facility] Comment on above: Result Comment: [place] om Glucose Reference Range is dependent on time and content of last meal. Glucose of more than 200 mg/dL in a nonstressed, ambulatory subject supports the diagnosis of Diabetes Mellitus. Performed By: #### G LULS ####Point of Care testing, Glucose [Mass/volume] in Ser um or PlasmaOrdered By: Milton Rivera on 03-23-2023 Glucose [Mass/Vol] 81 mg/dL 70-100 [facility] Comment on above: ADA recommended refe rence rangeRandom Glucose Reference Range is dependent on time and content of last meal. Glucose of more than 200 mg/dL in a nonstressed, ambulatory subject supports the diagnosis of Diabetes Mellitus. Hematocrit Auto (Bld) [Volum e fraction]Ordered By: Milton Rivera on 03-23-2023 Hematocrit (Bld) [Volume fraction] 41.0 % 34.0-46.4 [facility] Hemoglobin [Mass/volume] in BloodOrdered By: Milton Rivera on 03-23-2023 Hemoglobin (Bld) [Mass/Vol] 13.8 g/dL 11.8-15.4 [facility] Lactate [Moles/volume] in Se rum or PlasmaOrdered By: Milton Rivera on 03-23-2023 Lactate [Moles/Vol] 0.8 mmol/L 0.5-2.2 [facility] Lactic Acidon 03-23-2023 Lactate [Moles/Vol] 0.8 mmol/L Normal 0.5-2.2 [facility] Comment on above: Result Comment: PERF ORMED BY: [facility] [address] [place] [address] PATHOLOGIST [employer]ELOP[employer] JOSE LUZ M.D. Performed By: #### C MP, CBC #### [address] Lamotrigine (Lamictal)on Lamotrigine (Lamictal) 2.0 ug/mL Normal 2.0-20.0 [facility] Comment on above: Result Comment: Dete ction Limit = 1.0 Performed at: [address] [id number] Grazing Aide: Sina Hills MD, Phone: [phone] PERFORMED BY: [address] [address] PATHOLOGIST HEAD [employer] BUSINESS DEVELOPMENT JOSE LUZ M.D. Performed By: #### A FAUSTO, [facility] #### [address] [address] [facility] Leukocytes [#/volume] correc manjula for nucleated erythrocytes in Blood by Automated counOrdered By: Milton Rivera on 03-23-2023 WBC corrected for nucl RBC Auto (Bld) [#/Vol] 8.9 10*3/uL 3.8-11.6 [facility] Levetiracetam (Keppra)on levETIRAcetam [Mass/Vol] 15.5 ug/mL Normal 10.0-40.0 [facility] Comment on above: Result Comment: Perf ormed at: [address] [id number] Grazing Aide: Sina Hills MD, Phone: [phone] PERFORMED BY: [address] [address] PATHOLOGIST HEAD [employer] DEVELOPMENT JOSE LUZ M.D. Performed By: #### A [place]UST[place], [facility] #### [place] [id number] [facility] Lymphocytes Auto (Bld) [#/Vo l]Ordered By: Milton Rivera on 03-23-2023 Lymphocytes (Bld) [#/Vol] 3.3 10*3/uL 1.00-4.8 [facility] Lymphocytes/100 WBC Auto (Bl d)Ordered By: Milton Rivera on 03-23-2023 Lymphocytes/100 WBC (Bld) 37.2 % . [facility] MCH Auto (RBC) [Entitic mass ]Ordered By: Milton Rivera on 03-23-2023 MCH (RBC) [Entitic mass] 28.8 pg 24.7-34.3 [facility] MCHC Auto (RBC) [Mass/Vol]Or dered By: Milton Rivera on 03-23-2023 MCHC (RBC) [Mass/Vol] 33.5 g/dL 32.0-35.0 [facility] MCV Auto (RBC) [Entitic vol] Ordered By: Milton Rivera on 03-23-2023 MCV (RBC) [Entitic vol] 85.9 fL 80-100 [facility] Monocyte distribution width [Entitic volume] in Blood by AutomatedOrdered By: Milton Rivera on 03-23-2023 Monocyte distribution width Auto (Bld) [Entitic vol] 21.12 % 0.00-20.00 [facility] Comment on above: For adults in ED, MD W > 20.0 may be associated with a higher risk of sepsis during the first 12 hrs of hospital admission Monocytes Auto (Bld) [#/Vol] Ordered By: Milton Rivera on 03-23-2023 Monocytes (Bld) [#/Vol] 0.6 10*3/uL 0.0-0.8 [facility] Monocytes/100 WBC Auto (Bld) Ordered By: Milton Rivera on 03-23-2023 Monocytes/100 WBC (Bld) 6.9 % . [facility] Neutrophils Auto (Bld) [#/Vo l]Ordered By: Milton Rivera on 03-23-2023 Neutrophils (Bld) [#/Vol] 4.9 10*3/uL 1.8-7.7 [facility] Neutrophils/100 WBC Auto (Bl d)Ordered By: Milton Rivera on 03-23-2023 Neutrophils/100 WBC (Bld) 55.0 % . [facility] No Panel InformationOrdered By: Margarita Gallo on 03-23-2023 Lamotrigine (Lamictal) Level 2.0 ug/mL 2.0-20.0 [facility] Comment on above: Detection Limit = 1. 0Performed at: [facility] [address] [id number] Director: Sina Hills MD, Phone: [phone] Levetiracetam (Keppra) Level 15.5 ug/mL 10.0-40.0 [facility] Comment on above: Performed at: [address] [id number] Director: Sina Hills MD, Phone: [phone] No Panel InformationOrdered By: PROVIDER TEMP on 03-23-2023 Bedside Glucose Comment Glu2: cleaned meter [facility] No Panel InformationOrdered By: Milton Rivera on 03-23-2023 Estimated GFR (CKD-EPI) > 60.0 mL/Min [facility] Creatinine Clearance (Chem 85.00 [facility] Nucleated erythrocytes [Pres ence] in Blood by Automated countOrdered By: Milton Rivera on 03-23-2023 Nucleated RBC Auto Ql (Bld) 0.1 /100{WBC} 0-0.5 [facility] Platelet mean volume Auto (B ld) [Entitic vol]Ordered By: Milton Rivera on 03-23-2023 Platelet mean volume (Bld) [Entitic vol] 8.6 fL 6.3-10.7 [facility] Platelets Auto (Bld) [#/Vol] Ordered By: Milton Rivera on 03-23-2023 Platelets (Bld) [#/Vol] 257 10*3/uL 150-450 [facility] Potassium [Moles/volume] in Serum or PlasmaOrdered By: Milton Rivera on 03-23-2023 Potassium [Moles/Vol] 4.3 mmol/L 3.5-5.1 [facility] Prolactinon 03-23-2023 Prolactin 23.65 ng/mL Normal 3.34-26.72 [facility] Comment on above: Result Comment: PERF ORMED BY: [place] [address] PATHOLOGIST HEAD OF BUSINESS DEVELOPMENT JOSE LUZ M.D. Performed By: #### C MP, CBC #### [address] Prolactin [Mass/volume] in S alexis or PlasmaOrdered By: Milton Rivera on 03-23-2023 Prolactin [Mass/Vol] 23.65 ng/mL 3.34-26.72 [facility] Protein [Mass/volume] in Ser um or PlasmaOrdered By: Milton Rivera on 03-23-2023 Protein [Mass/Vol] 8.1 g/dL 6.4-8.9 [facility] RBC Auto (Bld) [#/Vol]Ordere d By: Milton Rivera on 03-23-2023 RBC (Bld) [#/Vol] 4.78 10*6/uL 3.60-5.00 [facility] Serum or plasma albumin/glob ulin mass ratioOrdered By: Milton Rivera on 03-23-2023 Albumin/Globulin [Mass ratio] 1.5 {ratio} [facility] Serum or plasma anion gap de terminationOrdered By: Milton Rivera on 03-23-2023 Anion gap [Moles/Vol] 16.5 mmol/L 6.0-15.0 [facility] Sodium [Moles/volume] in Ser um or PlasmaOrdered By: Milton Rivera on 03-23-2023 Sodium [Moles/Vol] 139 mmol/L 136-145 [facility] Urea nitrogen [Mass/volume] in Serum or PlasmaOrdered By: Milton Rivera on 03-23-2023 Urea nitrogen [Mass/Vol] 12 mg/dL 01-18 [facility] WBC Auto (Bld) [#/Vol]Ordere d By: Milton Rivera on 03-23-2023 WBC (Bld) [#/Vol] 8.9 10*3/uL 3.8-11.6 [facility] Alanine aminotransferase [En zymatic activity/volume] in Serum or PlasmaOrdered By: Luz Fiore on 03-11-2023 ALT [Catalytic activity/Vol] 6 U/L [facility] Albumin [Mass/volume] in Ser um or Plasma by Bromocresol green (BCG) dye binding methoOrdered By: Luz Fiore on 03-11-2023 Albumin BCG dye [Mass/Vol] 4.5 g/dL 3.5-5.7 [facility] Alkaline phosphatase [Enzyma tic activity/volume] in Serum or PlasmaOrdered By: Luz Fiore on 03-11-2023 ALP [Catalytic activity/Vol] 55 U/L 34-104 [facility] Aspartate aminotransferase [ Enzymatic activity/volume] in Serum or PlasmaOrdered By: Luz Fiore on 03-11-2023 AST [Catalytic activity/Vol] 14 U/L 13-39 [facility] Automated erythrocytes count in urine sediment (number/area)Ordered By: Luz Fiore on 03-11-2023 RBC Auto (Urine sed) [#/Area] 3-4 [HPF] 0-4 [facility] Automated leukocytes count i n urine sediment (number/area)Ordered By: Luz Fiore on 03-11-2023 WBC Auto (Urine sed) [#/Area] 3-4 [HPF] 0-4 [facility] Basophils Auto (Bld) [#/Vol] Ordered By: Luz Fiore on 03-11-2023 Basophils (Bld) [#/Vol] 0.0 10*3/uL 0.0-0.2 [facility] Basophils/100 WBC Auto (Bld) Ordered By: Luz Fiore on 03-11-2023 Basophils/100 WBC (Bld) 0.5 % . [facility] Bilirubin Test strip Ql (U)O rdered By: Luz Fiore on 03-11-2023 Bilirubin Ql (U) Negative Negative [facility] Bilirubin.total [Mass/volume ] in Serum or PlasmaOrdered By: Luz Fiore on 03-11-2023 Bilirubin [Mass/Vol] 0.4 mg/dL 0.3-1.0 [facility] Calcium [Mass/volume] in Ser um or PlasmaOrdered By: Luz Fiore on 03-11-2023 Calcium [Mass/Vol] 9.3 mg/dL 8.6-10.3 [facility] Carbon dioxide, total [Moles /volume] in Serum or PlasmaOrdered By: Luz Fiore on 03-11-2023 CO2 [Moles/Vol] 23.3 mmol/L 21.0-31.0 [facility] Chloride [Moles/volume] in S alexis or PlasmaOrdered By: Luz Fiore on 03-11-2023 Chloride [Moles/Vol] 107 mmol/L 98-107 [facility] Color Auto (U)Ordered By: Giovanni Fiore on 03-11-2023 Color (U) Yellow Yellow [facility] Complete Blood Count Auto Di ffon 03-11-2023 Basophils (Bld) [#/Vol] 0.0 10*3/uL Normal 0.0-0.2 [facility] Comment on above: Result Comment: PERF ORMED BY: [facility] [address] [place] [address] PATHOLOGIST HEAD [employer] BUSINESS DEVELOPMENT JOSE LUZ M.D. Performed By: #### C MP, CBC ####[address]#### LEV ####[facility] , Basophils/100 WBC (Bld) 0.5 % Normal . [facility] Comment on above: Performed By: #### C MP, CBC ####[place] [address] [place]#### LEV ####[facility] , Eosinophils (Bld) [#/Vol] 0.0 10*3/uL Normal 0.0-0.45 [facility] Comment on above: Performed By: #### C MP, CBC ####[place] [address] [place]#### LEV ####[facility] , Eosinophils/100 WBC (Bld) 0.5 % Normal . [facility] Comment on above: Performed By: #### C MP, CBC ####[place] [address] [place]#### LEV ####[facility] , Erythrocyte distribution width (RBC) [Ratio] 15.3 % Normal 11.9-15.3 [facility] Comment on above: Performed By: #### C MP, CBC ####[place] [address] [place]#### LEV ####[facility] , Hematocrit (Bld) [Volume fraction] 37.1 % Normal 34.0-46.4 [facility] Comment on above: Performed By: #### C MP, CBC ####[place] [address] [place]#### LEV ####[facility] , Hemoglobin (Bld) [Mass/Vol] 12.5 g/dL Normal 11.8-15.4 [facility] Comment on above: Performed By: #### C MP, CBC ####[place] [address] [place]#### LEV ####[facility] , Lymphocytes (Bld) [#/Vol] 2.0 10*3/uL Normal 1.00-4.8 [facility] Comment on above: Performed By: #### C MP, CBC ####[place] [address] [place]#### LEV ####[facility] , Lymphocytes/100 WBC (Bld) 23.7 % Normal . [facility] Comment on above: Performed By: #### C MP, CBC ####[place] [address] [place]#### LEV ####[facility] , MCH (RBC) [Entitic mass] 28.7 pg Normal 24.7-34.3 [facility] Comment on above: Performed By: #### C MP, CBC ####[place] [address] [place]#### LEV ####[facility] , MCV (RBC) [Entitic vol] 85.1 fL Normal 80-100 [facility] Comment on above: Performed By: #### C MP, CBC ####[place] [address] [place]#### LEV ####[facility] , Mean Corpuscular HGB Conc 33.7 g/dL Normal 32.0-35.0 [facility] Comment on above: Performed By: #### C MP, CBC ####[place] [address] [place]#### LEV ####[facility] , Monocytes (Bld) [#/Vol] 0.5 10*3/uL Normal 0.0-0.8 [facility] Comment on above: Performed By: #### C MP, CBC ####[place] [address] [place]#### LEV ####[facility] , Monocytes/100 WBC (Bld) 17.06 % Normal 0.00-20.00 [facility] Comment on above: Performed By: #### C MP, CBC ####[place] [address] [place]#### LEV ####[facility] , Monocytes/100 WBC (Bld) 5.8 % Normal . [facility] Comment on above: Performed By: #### C MP, CBC ####[place] [address] [place]#### LEV ####[facility] , Neutrophils (Bld) [#/Vol] 5.7 10*3/uL Normal 1.8-7.7 [facility] Comment on above: Performed By: #### C MP, CBC ####[place] [address] [place]#### LEV ####[facility] , Neutrophils/100 WBC (Bld) 69.5 % Normal . [facility] Comment on above: Performed By: #### C MP, CBC ####[place] [address] [place]#### LEV ####[facility] , NRBC% 0.0 /100{WBC} Normal 0-0.5 [facility] Comment on above: Performed By: #### C MP, CBC ####[place] [address] [place]#### LEV ####[facility] , Platelet mean volume (Bld) [Entitic vol] 8.0 fL Normal 6.3-10.7 [facility] Comment on above: Performed By: #### C MP, CBC ####[place] [address] [place]#### LEV ####[facility] , Platelets (Bld) [#/Vol] 272 10*3/uL Normal 150-450 [facility] Comment on above: Performed By: #### C MP, CBC ####[place] [address] [place]#### LEV ####[facility] , RBC (Bld) [#/Vol] 4.36 10*6/uL Normal 3.60-5.00 [facility] Comment on above: Performed By: #### C MP, CBC ####[place] [address] [place]#### LEV ####[facility] , WBC (Bld) [#/Vol] 8.2 10*3/uL Normal 3.8-11.6 [facility] Comment on above: Performed By: #### C MP, CBC ####[place] [address] [place]#### LEV ####[facility] , Comprehensive Metabolic Pane elvis 03-11-2023 Albumin [Mass/Vol] 4.5 g/dL Normal 3.5-5.7 [facility] Comment on above: Performed By: #### C MP, CBC ####[place] [address] [place]#### LEV ####[facility] , Albumin/Globulin [Mass ratio] 1.6 {ratio} Normal [facility] Comment on above: Performed By: #### C MP, CBC ####[place] [address] [place]#### LEV ####[facility] , ALP [Catalytic activity/Vol] 55 U/L Normal 34-104 [facility] Comment on above: Performed By: #### C MP, CBC ####[place] [address] [place]#### LEV ####[facility] , ALT [Catalytic activity/Vol] 6 U/L Low 7-52 [facility] Comment on above: Performed By: #### C MP, CBC ####[address]#### LEV ####[facility] , Anion gap [Moles/Vol] 12.3 mmol/L Normal 6.0-15.0 [facility] Comment on above: Performed By: #### C MP, CBC ####[place] [address] [place]#### LEV ####[facility] , AST [Catalytic activity/Vol] 14 U/L Normal 13-39 [facility] Comment on above: Performed By: #### C MP, CBC ####[place] [address] [place]#### LEV ####[facility] , Bilirubin [Mass/Vol] 0.4 mg/dL Normal 0.3-1.0 [facility] Comment on above: Performed By: #### C MP, CBC ####[place] [address] [place]#### LEV ####[facility] , Calcium [Mass/Vol] 9.3 mg/dL Normal 8.6-10.3 [facility] Comment on above: Performed By: #### C MP, CBC ####[address] [place] [address] [place]#### LEV ####[facility] , Chloride [Moles/Vol] 107 mmol/L Normal 98-107 [facility] Comment on above: Performed By: #### C MP, CBC ####[place] [address] [place]#### LEV ####[facility] , CO2 [Moles/Vol] 23.3 mmol/L Normal 21.0-31.0 [facility] Comment on above: Performed By: #### C MP, CBC ####[place] [address] [place]#### LEV ####[facility] , Creatinine [Mass/Vol] 0.91 mg/dL Normal 0.60-1.20 [facility] Comment on above: Performed By: #### C MP, CBC ####[place] [address] [place]#### LEV ####[facility] , Creatinine Clr Calc Pharmacy 65.12 [facility] Comment on above: Result Comment: PERF ORMED BY: [facility] [address] [place] [address] PATHOLOGIST HEAD [employer] DEVELOPMENT JOSE LUZ M.D. Performed By: #### C MP, CBC ####[place] [address] [place]#### LEV ####[facility] , GFR/1.73 sq M.predicted MDRD (S/P/Bld) [Vol rate/Area] mL/min/{1.73_m2} [facility] Comment on above: Performed By: #### C MP, CBC ####[place] [address] [place]#### LEV ####[facility] , Globulin (S) [Mass/Vol] 2.9 g/dL Normal [facility] Comment on above: Performed By: #### C MP, CBC ####[place] [address] [place]#### LEV ####[facility] , Glucose [Mass/Vol] 89 mg/dL Normal 70-100 [facility] Comment on above: Result Comment: [place] Glucose Reference Range is dependent on time and content of last meal. Glucose of more than 200 mg/dL in a nonstressed, ambulatory subject supports the diagnosis of Diabetes Mellitus. ADA recommended reference range Performed By: #### C MP, CBC ####[place] [address] [place]#### LEV ####[facility] , Potassium [Moles/Vol] 3.6 mmol/L Normal 3.5-5.1 [facility] Comment on above: Performed By: #### C MP, CBC ####[place] [address] [place]#### LEV ####[facility] , Protein [Mass/Vol] 7.4 g/dL Normal 6.4-8.9 [facility] Comment on above: Performed By: #### C MP, CBC ####[place] [address] [place]#### LEV ####[facility] , Sodium [Moles/Vol] 139 mmol/L Normal 136-145 [facility] Comment on above: Performed By: #### C MP, CBC ####[place] [address] [place]#### LEV ####[facility] , Urea nitrogen [Mass/Vol] 10 mg/dL Normal 7-25 [facility] Comment on above: Performed By: #### C MP, CBC ####[place] [address] [place]#### LEV ####[facility] , Creatinine [Mass/volume] in Serum or PlasmaOrdered By: Luz Fiore on 03-11-2023 Creatinine [Mass/Vol] 0.91 mg/dL 0.60-1.20 [facility] Dipstick and Microscopicon 0 03-11-2023 Appearance (U) Clear Normal Clear [facility] Comment on above: Order Comment: Name Collection Type:: Clean-Voided Midstream Performed By: #### A DDONUAPLUS ####[address] [address] [facility] Bacteria,Urine 1+ High None Seen [facility] Comment on above: Order Comment: Name Collection Type:: Clean-Voided Midstream Performed By: #### A DDONUAPLUS ####[address] [address] [facility] Bilirubin,Urine Negative Normal Negative [facility] Comment on above: Order Comment: Name Collection Type:: Clean-Voided Midstream Performed By: #### A DDONUAPLUS ####[address] [address] [facility] Color (U) Yellow Normal Yellow [facility] Comment on above: Order Comment: Name Collection Type:: Clean-Voided Midstream Performed By: #### A DDONUAPLUS ####[address] [address] [facility] Glucose Ql (U) Normal Normal Normal [facility] Comment on above: Order Comment: Name Collection Type:: Clean-Voided Midstream Performed By: #### A DDONUAPLUS ####[address] [address] [facility] Hyaline Casts,Urine 0-8 Normal 0-8 [facility] Comment on above: Order Comment: Name Collection Type:: Clean-Voided Midstream Result Comment: PERF ORMED BY: [facility] [address] [place] [address] PATHOLOGIST [employer]ELOP[employer] JOSE LUZ M.D. Performed By: #### A DDONUAPLUS ####[address] [place] [address] [place] Ketones Ql (U) Negative Normal Negative [facility] Comment on above: Order Comment: Name Collection Type:: Clean-Voided Midstream Performed By: #### A DDONUAPLUS ####[address] [address] [facility] Leukocyte esterase Test strip Ql (U) Negative Normal Negative [facility] Comment on above: Order Comment: Name Collection Type:: Clean-Voided Midstream Performed By: #### A DDONUAPLUS ####[address] [address] [place] Nitrite,Urine Negative Normal Negative [facility] Comment on above: Order Comment: Name Collection Type:: Clean-Voided Midstream Performed By: #### A DDONUAPLUS ####[address] [address] [facility] Occult Blood,Urine 1+ High Negative [facility] Comment on above: Order Comment: Name Collection Type:: Clean-Voided Midstream Result Comment: PERF ORMED BY: [facility] [address] [place] [id number] PATHOLOGIST HEAD [employer] DEVELOPMENT JOSE LUZ M.D. Performed By: #### A DDONUAPLUS ####[address] [address] [place] pH (U) 7.0 [pH] Normal 5.0-9.0 [facility] Comment on above: Order Comment: Name Collection Type:: Clean-Voided Midstream Performed By: #### A DDONUAPLUS ####[address] [address] [place] Protein,Urine Negative Normal Negative [facility] Comment on above: Order Comment: Name Collection Type:: Clean-Voided Midstream Performed By: #### A DDONUAPLUS ####[address] [address] [place] RBC,Urine 3-4 Normal 0-4 [facility] Comment on above: Order Comment: Name Collection Type:: Clean-Voided Midstream Performed By: #### A DDONUAPLUS ####[address] [place] [address] [facility] Specificy [place],Urine 1.019 Normal 1.001-1.030 [facility] Comment on above: Order Comment: Name Collection Type:: Clean-Voided Midstream Performed By: #### A DDONUAPLUS ####[address] [address] [facility] Squamous Epithelial Cell,Urine 1-2 Normal 0-2 [facility] Comment on above: Order Comment: Name Collection Type:: Clean-Voided Midstream Performed By: #### A DDONUAPLUS ####[address] [address] [facility] Urobilinogen,Urine Normal Normal Normal [facility] Comment on above: Order Comment: Name Collection Type:: Clean-Voided Midstream Performed By: #### A DDONUAPLUS ####[address] [address] [facility] WBC,Urine 3-4 Normal 0-4 [facility] Comment on above: Order Comment: Name Collection Type:: Clean-Voided Midstream Performed By: #### A DDONUAPLUS ####[address] [address] [facility] ECG 12 lead ECGon 03-11-2023 ECG 12 lead ECG [facility] [place] [address] Electrocardiograph Report Signed Patient: Bhavna Kovacs MR#: [id number] : 2000 Acct:[id number] Age/Sex: 22 / F ADM Date: 03/11/23 Loc: ER Room: Type: [facility] ER Attending Dr: Ordering Provider: Luz Fiore DO Date of Service: 03/11/23 ECG/ECG 12 lead ECG: Seizure Copies to: Test Reason : Blood Pressure : 094/054 mmHG Vent. Rate : 080 BPM Atrial Rate : 080 BPM P-R Int : 156 ms QRS Dur : 084 ms QT Int : 362 ms P-R-T Axes : 076 085 074 degrees QTc Int : 417 ms Normal sinus rhythm Biatrial enlargement ST elevation, consider early repolarization, pericarditis, or injury Nonspecific ST abnormality Abnormal ECG When compared with ECG of 11-NOV-2022 10:53, No significant change was found Confirmed by LUZ FIORE DO ([id number]) on 03/11/2023 4:31:09 PM Referred By: Electronically Signed By:LUZ FIORE DO Transcribed By: MUS Signed By Luz Fiore DO 03/11 1631 Normal [facility] Eosinophils Auto (Bld) [#/Vo l]Ordered By: Luz Fiore on 03-11-2023 Eosinophils (Bld) [#/Vol] 0.0 10*3/uL 0.0-0.45 [facility] Eosinophils/100 WBC Auto (Bl d)Ordered By: Luz Fiore on 03-11-2023 Eosinophils/100 WBC (Bld) 0.5 % . [facility] Erythrocyte distribution wid th Auto (RBC) [Ratio]Ordered By: Luz Fiore on 03-11-2023 Erythrocyte distribution width (RBC) [Ratio] 15.3 % 11.9-15.3 [facility] Globulin Calc (S) [Mass/Vol] Ordered By: Luz Fiore on 03-11-2023 Globulin (S) [Mass/Vol] 2.9 g/dL [facility] Glucose [Mass/volume] in Ser um or PlasmaOrdered By: Luz Fiore on 03-11-2023 Glucose [Mass/Vol] 89 mg/dL 70-100 [facility] Comment on above: ADA recommended refe rence rangeRandom Glucose Reference Range is dependent on time and content of last meal. Glucose of more than 200 mg/dL in a nonstressed, ambulatory subject supports the diagnosis of Diabetes Mellitus. Hematocrit Auto (Bld) [Volum e fraction]Ordered By: Luz Fiore on 03-11-2023 Hematocrit (Bld) [Volume fraction] 37.1 % 34.0-46.4 [facility] Hemoglobin [Mass/volume] in BloodOrdered By: Luz Fiore on 03-11-2023 Hemoglobin (Bld) [Mass/Vol] 12.5 g/dL 11.8-15.4 [facility] Ketones Auto test strip (U) [Mass/Vol]Ordered By: Luz Fiore on 03-11-2023 Ketones (U) [Mass/Vol] Negative Negative [facility] Laboratory - UrinalysisOrder ed By: Luz Fiore on 03-11-2023 Hyaline casts LM Ql (Urine sed) 0-8 [LPF] 0-8 [facility] Leukocytes [#/volume] correc manjula for nucleated erythrocytes in Blood by Automated counOrdered By: Luz Fiore on 03-11-2023 WBC corrected for nucl RBC Auto (Bld) [#/Vol] 8.2 10*3/uL 3.8-11.6 [facility] Levetiracetam (Keppra)on levETIRAcetam [Mass/Vol] 30.8 ug/mL Normal 10.0-40.0 [facility] Comment on above: Result Comment: Perf ormed at: - [facility] [address] [id number] Grazing Aide: Sina Hills MD, Phone: [phone] PERFORMED BY: [facility] [address] [place] [address] PATHOLOGIST HEAD OF BUSINESS DEVELOPMENT JOSE LUZ M.D. Performed By: #### C MP, CBC ####[facility] [id number]#### LEV ####[facility] , Lymphocytes Auto (Bld) [#/Vo l]Ordered By: Luz Fiore on 03-11-2023 Lymphocytes (Bld) [#/Vol] 2.0 10*3/uL 1.00-4.8 [facility] Lymphocytes/100 WBC Auto (Bl d)Ordered By: Luz Fiore on 03-11-2023 Lymphocytes/100 WBC (Bld) 23.7 % . [facility] MCH Auto (RBC) [Entitic mass ]Ordered By: Luz Fiore on 03-11-2023 MCH (RBC) [Entitic mass] 28.7 pg 24.7-34.3 [facility] MCHC Auto (RBC) [Mass/Vol]Or dered By: Luz Fiore on 03-11-2023 MCHC (RBC) [Mass/Vol] 33.7 g/dL 32.0-35.0 [facility] MCV Auto (RBC) [Entitic vol] Ordered By: Luz Fiore on 03-11-2023 MCV (RBC) [Entitic vol] 85.1 fL 80-100 [facility] Monocyte distribution width [Entitic volume] in Blood by AutomatedOrdered By: Luz Fiore on 03-11-2023 Monocyte distribution width Auto (Bld) [Entitic vol] 17.06 % 0.00-20.00 [facility] Monocytes Auto (Bld) [#/Vol] Ordered By: Luz Fiore on 03-11-2023 Monocytes (Bld) [#/Vol] 0.5 10*3/uL 0.0-0.8 [facility] Monocytes/100 WBC Auto (Bld) Ordered By: Luz Fiore on 03-11-2023 Monocytes/100 WBC (Bld) 5.8 % . [facility] Neutrophils Auto (Bld) [#/Vo l]Ordered By: Luz Fiore on 03-11-2023 Neutrophils (Bld) [#/Vol] 5.7 10*3/uL 1.8-7.7 [facility] Neutrophils/100 WBC Auto (Bl d)Ordered By: Luz Fiore on 03-11-2023 Neutrophils/100 WBC (Bld) 69.5 % . [facility] Nitrite Test strip Ql (U)Ord ered By: Luz Fiore on 03-11-2023 Nitrite Ql (U) Negative Negative [facility] No Panel InformationOrdered By: Luz Fiore on 03-11-2023 Levetiracetam (Keppra) Level 30.8 ug/mL 10.0-40.0 [facility] Comment on above: Performed at: - [facility] [address] [id number] Director: Sina Hills MD, Phone: [phone] Estimated GFR (CKD-EPI) > 60.0 mL/Min [facility] Creatinine Clearance (Chem 65.12 [facility] Nucleated erythrocytes [Pres ence] in Blood by Automated countOrdered By: Luz Fiore on 03-11-2023 Nucleated RBC Auto Ql (Bld) 0.0 /100{WBC} 0-0.5 [facility] Platelet mean volume Auto (B ld) [Entitic vol]Ordered By: Luz Fiore on 03-11-2023 Platelet mean volume (Bld) [Entitic vol] 8.0 fL 6.3-10.7 [facility] Platelets Auto (Bld) [#/Vol] Ordered By: Luz Fiore on 03-11-2023 Platelets (Bld) [#/Vol] 272 10*3/uL 150-450 [facility] Potassium [Moles/volume] in Serum or PlasmaOrdered By: Luz Fiore on 03-11-2023 Potassium [Moles/Vol] 3.6 mmol/L 3.5-5.1 [facility] Protein Auto test strip (U) [Mass/Vol]Ordered By: Luz Fiore on 03-11-2023 Protein (U) [Mass/Vol] Negative Negative [facility] Protein [Mass/volume] in Ser um or PlasmaOrdered By: Luz Fiore on 03-11-2023 Protein [Mass/Vol] 7.4 g/dL 6.4-8.9 [facility] RBC Auto (Bld) [#/Vol]Ordere d By: Luz Fiore on 03-11-2023 RBC (Bld) [#/Vol] 4.36 10*6/uL 3.60-5.00 [facility] Serum or plasma albumin/glob ulin mass ratioOrdered By: Luz Fiore on 03-11-2023 Albumin/Globulin [Mass ratio] 1.6 {ratio} [facility] Serum or plasma anion gap de terminationOrdered By: Luz Fiore on 03-11-2023 Anion gap [Moles/Vol] 12.3 mmol/L 6.0-15.0 [facility] Sodium [Moles/volume] in Ser um or PlasmaOrdered By: Luz Fiore on 03-11-2023 Sodium [Moles/Vol] 139 mmol/L 136-145 [facility] Specific gravity Auto test s trip (U) [Rel density]Ordered By: Luz Fiore on 03-11-2023 Specific gravity (U) [Rel density] 1.019 1.001-1.030 [facility] Squamous epithelial cells de tection in urine sediment by light microscopyOrdered By: Luz Fiore on 03-11-2023 Epithelial cells.squamous LM Ql (Urine sed) 1-2 [HPF] 0-2 [facility] Urea nitrogen [Mass/volume] in Serum or PlasmaOrdered By: Luz Fiore on 03-11-2023 Urea nitrogen [Mass/Vol] 10 mg/dL 7-25 [facility] Urine bacteria detection by automated methodOrdered By: Luz Fiore on 03-11-2023 Bacteria Auto Ql (U) 1+ None Seen [facility] Urine clarity by refractomet ry automatedOrdered By: Luz Fiore on 03-11-2023 Clarity Refractometry automated (U) Clear Clear [facility] Urine glucose measurement by automated test strip (mass/volume)Ordered By: Luz Fiore on 03-11-2023 Glucose Auto test strip (U) [Mass/Vol] Normal mg/dL Normal [facility] Urine hemoglobin detection b y automated test stripOrdered By: Luz Fiore on 03-11-2023 Hemoglobin Auto test strip Ql (U) 1+ Negative [facility] Urine leukocyte esterase det ection by automated test stripOrdered By: Luz Fiore on 03-11-2023 Leukocyte esterase Auto test strip Ql (U) Negative Negative [facility] Urobilinogen Auto test strip (U) [Mass/Vol]Ordered By: Luz Fiore on 03-11-2023 Urobilinogen (U) [Mass/Vol] Normal mg/dL Normal [facility] WBC Auto (Bld) [#/Vol]Ordere d By: Luz Fioer on 03-11-2023 WBC (Bld) [#/Vol] 8.2 10*3/uL 3.8-11.6 [facility] pH Auto test strip (U)Ordere d By: Luz Fiore on 03-11-2023 pH (U) 7.0 [pH] 5.0-9.0 [facility] CBC with Auto Differentialon 02-06-2023 Basophils (Bld) [#/Vol] [facility] Basophils/100 WBC (Bld) 0 % 0 - 2 % [facility] Eosinophils (Bld) [#/Vol] [facility] Eosinophils/100 WBC (Bld) 0 % Low 1 - 4 % [facility] Erythrocyte distribution width (RBC) [Ratio] 12.8 % 11.8 - 14.4 % [facility] Hematocrit (Bld) [Volume fraction] 40.5 % 36.3 - 47.1 % [facility] Hemoglobin (Bld) [Mass/Vol] 13.7 g/dL 11.9 - 15.1 g/dL [facility] Immature granulocytes (Bld) [#/Vol] [facility] Immature granulocytes/100 WBC (Bld) 0 % 0 [facility] Interpretation and review of laboratory results Abnormal [facility] Lymphocytes/100 WBC (Bld) 26 % 25 - 45 % [facility] Lymphocytes/100 WBC (Bld) 2.58 % [facility] MCH (RBC) [Entitic mass] 28.5 pg 25.2 - 33.5 pg [facility] MCHC (RBC) [Mass/Vol] 33.8 g/dL 28.4 - 34.8 g/dL [facility] MCV (RBC) [Entitic vol] 84.2 fL 82.6 - 102.9 fL [facility] Monocytes/100 WBC (Bld) 6 % 2 - 8 % [facility] Monocytes/100 WBC (Bld) 0.64 % [facility] Neutrophils/100 WBC (Bld) 68 % High 34 - 64 % [facility] Nucleated RBC/100 WBC (Bld) [Ratio] 0.0 % 0.0 per 100 WBC [facility] Platelet mean volume (Bld) [Entitic vol] 9.4 fL 8.1 - 13.5 fL [facility] Platelets (Bld) [#/Vol] 364 10*3/uL [facility] RBC (Bld) [#/Vol] 4.81 10*6/uL 3.95 - 5.1 1 m/uL [facility] Segmented neutrophils/100 WBC (Bld) 6.71 % [facility] WBC other (Bld) [#/Vol] 10.0 [facility] CBC with Diffon 02-06-2023 Abs. Basophil <0.03 Normal 0.00-0.20 [facility] Comment on above: Performed By: #### Kp Santamaria CP, CDP #### [facility] [address] [place] [address] [place] [address] Grazing Aide: Debbie Molina MD Abs. Eosinophil <0.03 Normal 0.00-0.44 [facility] Comment on above: Performed By: #### Kp Santamaria CP, CDP #### [facility] [address] [place] [address] [place] [address] Grazing Aide: Debbie Molina MD Abs.Imm.Granulocyte <0.03 Normal 0.00-0.30 [facility] Comment on above: Performed By: #### Kp Santamaria CP, CDP #### [facility] [address] [place] [address] Dr. [place], [place] [address] Grazing Aide: Debbie Molina MD Abs.Neutrophil (Seg) 6.71 k/uL Normal 1.50-8.10 [facility] Comment on above: Performed By: #### Kp Santamaria CP, CDP #### [facility] [address] [place] [address] [place], [place] [id number] Grazing Aide: Debbie Molina MD Basophils/100 WBC (Bld) 0 % Normal 0-2 [facility] Comment on above: Performed By: #### Kp Santamaria CP, CDP #### [facility] [address] [place] [address] [place] [address] Grazing Aide: Debbie Molina MD Eosinophils/100 WBC (Bld) 0 % Low 1-4 [facility] Comment on above: Performed By: #### Kp Santamaria CP, CDP #### [facility] [address] [place] [address] [place], [place] [id number] Grazing Aide: Debbie Molina MD Erythrocyte distribution width (RBC) [Ratio] 12.8 % Normal 11.8-14.4 [facility] Comment on above: Performed By: #### Kp Santamaria CP, CDP #### [facility] [address] [place], [place] [phone] Grazing Aide: Debbie Molina MD Hematocrit (Bld) [Volume fraction] 40.5 % Normal 36.3-47.1 [facility] Comment on above: Performed By: #### Kp Santamaria CP, CDP #### [facility] [address] [place], [place] [phone] Grazing Aide: Debbie Molina MD Hemoglobin (Bld) [Mass/Vol] 13.7 g/dL Normal 11.9-15.1 [facility] Comment on above: Performed By: #### Kp Santamaria CP, CDP #### [address] [place], [facility]83 Grazing Aide: Debbie Molina MD Immature granulocytes/100 WBC (Bld) 0 % Normal 0 [facility] Comment on above: Performed By: #### Kp Santamaria CP, CDP #### [address] [place], [place] [phone] Grazing Aide: Debbie Molina MD Lymphocytes (Bld) [#/Vol] 2.58 10*3/uL Normal 1.10-3.70 [facility] Comment on above: Performed By: #### Kp Santamaria CP, CDP #### [address] [place], [place] [phone] Grazing Aide: Debbie Molina MD Lymphocytes/100 WBC (Bld) 26 % Normal 25-45 [facility] Comment on above: Performed By: #### Kp Santamaria CP, CDP #### [facility] [address] [place], [place] [phone] Grazing Aide: Debbie Molina MD MCH (RBC) [Entitic mass] 28.5 pg Normal 25.2-33.5 [facility] Comment on above: Performed By: #### Kp Santamaria CP, CDP #### [address] [place] [address] Grazing Aide: Debbie Molina MD MCHC (RBC) [Mass/Vol] 33.8 g/dL Normal 28.4-34.8 [facility] Comment on above: Performed By: #### Kp Santamaria CP, CDP #### [address] [place] [address] Grazing Aide: Debbie Molina MD MCV (RBC) [Entitic vol] 84.2 fL Normal 82.6-102.9 [facility] Comment on above: Performed By: #### Kp Santamaria CP, CDP #### [address] [place], [place] [phone] Grazing Aide: Debbie Molina MD Monocytes (Bld) [#/Vol] 0.64 10*3/uL Normal 0.10-1.40 [facility] Comment on above: Performed By: #### pK Santamaria CP, CDP #### [address] [place], [place] [phone] Grazing Aide: Debbie Molina MD Monocytes/100 WBC (Bld) 6 % Normal 2-8 [facility] Comment on above: Performed By: #### Kp Santamaria CP, CDP #### [address] [place], [place] [phone] Grazing Aide: Debbie Molina MD Neutrophil (Seg) 68 % High 34-64 [facility] Comment on above: Performed By: #### Kp Santamaria CP, CDP #### [address] [place], [place] [phone] Grazing Aide: Debbie Molina MD NRBC Automated 0.0 per 100 WBC Normal 0.0 [facility] Comment on above: Performed By: #### Kp Santamaria CP, CDP #### [facility] [address] [place], [place] [address] Grazing Aide: Debbie Molina MD Platelet mean volume (Bld) [Entitic vol] 9.4 fL Normal 8.1-13.5 [facility] Comment on above: Performed By: #### Kp Santamaria CP, CDP #### [facility] [address] [place], [place] [phone] Grazing Aide: Debbie Molina MD Platelets (Bld) [#/Vol] 364 10*3/uL Normal 138-453 [facility] Comment on above: Performed By: #### Kp Santamaria CP, CDP #### [facility] [address] [place], [place] [address] Grazing Aide: Debbie Molina MD RBC (Bld) [#/Vol] 4.81 10*6/uL Normal 3.95-5.11 [facility] Comment on above: Performed By: #### Kp Santamaria CP, CDP #### [address] [place], [place] [phone] Grazing Aide: Debbie Molina MD WBC (Bld) [#/Vol] 10.0 10*3/uL Normal 4.5-13.5 [facility] Comment on above: Performed By: #### Kp Santamaria CP, CDP #### [facility] [address] [place], [facility]83 Grazing Aide: Debbie Molina MD [facility] 02-06-2023 Albumin [Mass/Vol] 4.9 g/dL 3.5 - 5.2 g/dL [facility] Albumin/Globulin [Mass ratio] 1.8 {ratio} 1.0 - 2.5 [facility] ALP [Catalytic activity/Vol] 74 U/L 35 - 104 U/L [facility] ALT [Catalytic activity/Vol] 6 U/L 5 - 33 U/L [facility] Anion gap [Moles/Vol] 14 mmol/L 9 - 17 mmol/L [facility] AST [Catalytic activity/Vol] 16 U/L NINF - 32 U/L [facility] Bilirubin [Mass/Vol] 0.4 mg/dL 0.3 - 1 .2 mg/dL [facility] Calcium [Mass/Vol] 9.6 mg/dL 8.6 - 10. 4 mg/dL [facility] Chloride [Moles/Vol] 102 mmol/L 98 - 10 7 mmol/L [facility] CO2 [Moles/Vol] 25 mmol/L 20 - 31 mmol/L [facility] Creatinine [Mass/Vol] 0.7 mg/dL 0.5 - 0.9 mg/dL [facility] GFR/1.73 sq M.predicted MDRD (S/P/Bld) [Vol rate/Area] - PINF [facility] Comment on above: These results are not intended for use in patients <18 years of age. eGFR results are calculated without a race factor using the 2020 CKD-EPI equation. Careful clinical correlation is recommended, particularly when comparing to results calculated using previous equations. The CKD-EPI equation is less accurate in patients with extremes of muscle mass, extra-renal metabolism of creatine, excessive creatine ingestion, or following therapy that affects renal tubular secretion. Glucose [Mass/Vol] 111 mg/dL High 70 - 99 mg/dL [facility] Interpretation and review of laboratory results Abnormal [facility] Potassium [Moles/Vol] 4.0 mmol/L 3.7 - 5.3 mmol/L [facility] Protein [Mass/Vol] 7.7 g/dL 6.4 - 8.3 g/dL [facility] Sodium [Moles/Vol] 141 mmol/L 135 - 144 mmol/L [facility] Urea nitrogen [Mass/Vol] 8 mg/dL 6 - 20 mg/dL [facility] Urea nitrogen/Creatinine [Mass ratio] 11 mg/mg 9 - [address] [facility] [address] HEAD WO CONTRASTon 2022 CT HEAD WO CONTRAST EXAMINATION: CT OF THE HEAD WITHOUT CONTRAST 02/06/2023 5:56 pm TECHNIQUE: CT of the head was performed without the administration of intravenous contrast. Automated exposure control, iterative reconstruction, and/or weight based adjustment of the mA/kV was utilized to reduce the radiation dose to as low as reasonably achievable. COMPARISON: None. HISTORY: ORDERING SYSTEM PROVIDED HISTORY: Headache preceding seizures TECHNOLOGIST PROVIDED HISTORY: Headache preceding seizures Decision Support Exception - unselect if not a suspected or confirmed emergency medical condition->Emergency Medical Condition (MA) FINDINGS: BRAIN/VENTRICLES: There is no acute intracerebral hemorrhage or extra-axial fluid collection. The ventricles and sulci are within normal limits. ORBITS: The orbits are unremarkable. SINUSES: The visualized paranasal sinuses and mastoid air cells are clear. SOFT TISSUES/SKULL: The calvarium is intact. IMPRESSION: 1. No acute intracranial abnormality. Interpreted by: Ferdinand Chavarria MD Signed by: Ferdinand Chavarria MD 02/06/23 Final result Normal [facility] CT Head WO Contraston 2022 1. No acute intracra nial abnormality. [facility] EXAMINATION: CT OF THE HEAD WITHOUT CONTRAST 02/06/2023 5:56 pm TECHNIQUE: CT of the head was performed without the administration of intravenous contrast. Automated exposure control, iterative reconstruction, and/or weight based adjustment of the mA/kV was utilized to reduce the radiation dose to as low as reasonably achievable. COMPARISON: None. HISTORY: ORDERING SYSTEM PROVIDED HISTORY: Headache preceding seizures TECHNOLOGIST PROVIDED HISTORY: Headache preceding seizures Decision Support Exception - unselect if not a suspected or confirmed emergency medical condition->Emergency Medical Condition (MA) FINDINGS: BRAIN/VENTRICLES: There is no acute intracerebral hemorrhage or extra-axial fluid collection. The ventricles and sulci are within normal limits. ORBITS: The orbits are unremarkable. SINUSES: The visualized paranasal sinuses and mastoid air cells are clear. SOFT TISSUES/SKULL: The calvarium is intact. [facility] Ferdinand Chavarria MD - 02/06/2023 EXAMINATION: CT OF THE HEAD WITHOUT CONTRAST 02/06/2023 5:56 pm TECHNIQUE: CT of the head was performed without the administration of intravenous contrast. Automated exposure control, iterative reconstruction, and/or weight based adjustment of the mA/kV was utilized to reduce the radiation dose to as low as reasonably achievable. COMPARISON: None. HISTORY: ORDERING SYSTEM PROVIDED HISTORY: Headache preceding seizures TECHNOLOGIST PROVIDED HISTORY: Headache preceding seizures Decision Support Exception - unselect if not a suspected or confirmed emergency medical condition->Emergency Medical Condition (MA) FINDINGS: BRAIN/VENTRICLES: There is no acute intracerebral hemorrhage or extra-axial fluid collection. The ventricles and sulci are within normal limits. ORBITS: The orbits are unremarkable. SINUSES: The visualized paranasal sinuses and mastoid air cells are clear. SOFT TISSUES/SKULL: The calvarium is intact. IMPRESSION: 1. No acute intracranial abnormality. [facility] Radiology Study observation (narrative) [facility] CT Head WO ContrastOrdered B y: Ferdinand Chavarria on 02-06-2023 [facility] Work Phone: Comp Metabolic Profon 2022 Albumin [Mass/Vol] 4.9 g/dL Normal 3.5-5.2 [facility] Comment on above: Performed By: #### Kp Santamaria CP, CDP #### [facility] [address] [place] [address] [place] [address] Grazing Aide: Debbie Molina MD Albumin/Glob Ratio 1.8 Normal 1.0-2.5 [facility] Comment on above: Performed By: #### Kp Santamaria CP, CDP #### [address] [place] [phone] Grazing Aide: Debbie Molina MD Alkaline Phos 74 U/L Normal 35-104 [facility] Comment on above: Performed By: #### Kp Santamaria CP, CDP #### [address] [place], [place] [phone] Grazing Aide: Debbie Molina MD ALT [Catalytic activity/Vol] 6 U/L Normal 5-33 [facility] Comment on above: Performed By: #### Kp Santamaria CP, CDP #### [address] [place] [address] Grazing Aide: Debbie Molina MD Anion gap [Moles/Vol] 14 mmol/L Normal 9-17 [facility] Comment on above: Performed By: #### Kp Santamaria CP, CDP #### [facility] [address] [place], [place] [phone] Grazing Aide: Debbie Molina MD AST [Catalytic activity/Vol] 16 U/L Normal <32 [facility] Comment on above: Performed By: #### M Rosalio, CP, CDP #### [facility] [address] [place], [place] 127[address]83 Grazing Aide: Debbie Molina MD Bilirubin [Mass/Vol] 0.4 mg/dL Normal 0.3-1.2 [facility] Comment on above: Performed By: #### Kp Santamaria, CP, CDP #### [facility] [address] [place], [place] [phone] Grazing Aide: Debbie Molina MD BUN/CRE Ratio 11 Normal 9-20 [facility] Comment on above: Performed By: #### Kp Santamaria, CP, CDP #### [facility] [address] [place], [place] 4755383 Grazing Aide: Debbie Molina MD Calcium [Mass/Vol] 9.6 mg/dL Normal 8.6-10.4 [facility] Comment on above: Performed By: #### Kp Santamaria CP, CDP #### [address] [place], [place] [address] Grazing Aide: Debbie Molina MD Chloride [Moles/Vol] 102 mmol/L Normal 98-107 [facility] Comment on above: Performed By: #### M Rosalio, CP, CDP #### [facility] [address] [place], [place] [address]686[address] Grazing Aide: Debbie Molina MD CO2 [Moles/Vol] 25 mmol/L Normal 20-31 [facility] Comment on above: Performed By: #### M Rosalio, CP, CDP #### [facility] [address] [place], [place] 5654083 Grazing Aide: Debbie Molina MD Creatinine [Mass/Vol] 0.7 mg/dL Normal 0.5-0.9 [facility] Comment on above: Performed By: #### Kp Santamaria CP, CDP #### [facility] [address] [place], [place] [phone] Grazing Aide: Debbie Molina MD GFR/1.73 sq M.predicted among non-blacks MDRD (S/P/Bld) [Vol rate/Area] mL/min/{1.73_m2} Normal >60 [facility] Comment on above: Result Comment: These results are not intended for use in patients <18 years of age. eGFR results are calculated without a race factor using the 2020 CKD-EPI equation. Careful clinical correlation is recommended, particularly when comparing to results calculated using previous equations. The CKD-EPI equation is less accurate in patients with extremes of muscle mass, extra-renal metabolism of creatine, excessive creatine ingestion, or following therapy that affects renal tubular secretion. Performed By: #### Kp Santamaria CP, CDP #### [facility] [address] [place] [address] [place]. [place], [place] [id number] Grazing Aide: Debbie Molina MD Glucose [Mass/Vol] 111 mg/dL High 70-99 [facility] Comment on above: Performed By: #### Kp Santamaria CP, CDP #### [address] [place], [place] [phone] Grazing Aide: Debbie Molina MD Potassium [Moles/Vol] 4.0 mmol/L Normal 3.7-5.3 [facility] Comment on above: Performed By: #### Kp Santamaria CP, CDP #### [facility] [address] [place], [place] [id number] Grazing Aide: Debbie Molina MD Protein [Mass/Vol] 7.7 g/dL Normal 6.4-8.3 [facility] Comment on above: Performed By: #### Kp Santamaria CP, CDP #### [facility] [address] [place], [place] [id number] Grazing Aide: Debbie Molina MD Sodium [Moles/Vol] 141 mmol/L Normal 135-144 [facility] Comment on above: Performed By: #### Kp Santamaria CP, CDP #### [facility] [address] [place] [address] Grazing Aide: Debbie Molina MD Urea nitrogen [Mass/Vol] 8 mg/dL Normal 6-20 [facility] Comment on above: Performed By: #### Kp Santamaria CP, CDP #### [facility] [address] [place] [address] Grazing Aide: Debbie Molina MD Lactic Acidon 02-06-2023 Lactate [Moles/Vol] 2.5 mmol/L High 0.5-2.2 [facility] Comment on above: Performed By: #### L ACTIC #### [facility] [address] [place] [address] Grazing Aide: Debbie Molina MD Interpretation and review of laboratory results Abnormal [facility] Lactate (BldV) [Moles/Vol] 2.5 mmol/L High 0.5 - 2.2 mmol/L [facility] Magnesiumon 02-06-2023 Magnesium [Mass/Vol] 2.0 mg/dL Normal 1.6-2.6 [facility] Comment on above: Performed By: #### Kp Santamaria CP, CDP #### [facility] [address] [place] [address] Grazing Aide: Debbie Molina MD Magnesium [Mass/Vol] 2.0 mg/dL 1.6 - 2 .6 mg/dL [facility] No Panel Informationon 02-06 [facility] 29on 02-01-2023 29 Addended by: CRISELDA CLAUDIO on: 02/02/2023 08:34 AM Modules accepted: Orders Normal [facility] Office Visiton 02-01-2023 Follow-up visit [id number] Juan Jose Kovacs 2000 F Date Provider Department Center 02/01/2023 LeisaMARISOL GLORIA [facility] Patrick . No family history on file Level of Service:08915 [place] OFFICE/OUTPATIENT ESTABLISHED MOD MDM 30-39 MIN Normal [facility] CT cervical spine wo conon 0 11-11-2022 CT cervical spine wo con [facility] [place] [address] CT Scan Report Signed Patient: Bhavna Kovacs MR#: [id number] : 2000 Acct:[id number] Age/Sex: 22 / F ADM Date: 11/11/22 Loc: ER Room: Type: [facility] ER Attending Dr: Copies to: Tommy Bowen DO Ordering Provider: Tommy Bowen DO Date of Service: 11/11/22 CT/CT cervical spine wo con: fall seizure CT Cervical Spine withoutcontrast TECHNIQUE: Axial imaging with 2-D and 3-D reconstruction. The CT exam was performed using one or more the following dose reduction techniques: Automated exposure control, adjustment of the MA and/or Kv according to patient size, or use of the iterative reconstruction technique. COMPARISON: None HISTORY: Multiple seizures POST SURGERY CHANGES: None BONY ALIGNMENT: Reversal cervical lordosis BONY SPINAL CANAL: Patent central bony canal FRACTURE: None BONY LESIONS: None SOFT TISSUES: Unremarkable DEGENERATIVE CHANGES: None LUNG APICES: Unremarkable ADDITIONAL FINDINGS: CT/CT cervical spine wo con IMPRESSION: No acute process Impression dictated by: Gerardo Lamar M.D.11/11/2022 1:03 PM Dictation Location: [place] [address] Transcribed By: [facility] 11/11/22 1303 Dictated By: Gerardo Lamar DO 11/11/22 1302 Signed By: 11/11/22 [address] [facility] [address] head/brain wo conon 11-11 CT head/brain wo con [facility] Main [address] [address] [address] Scan Report Signed Patient: Bhavna Kovacs MR#: [id number] 668 : 2000 Acct:[id number] Age/Sex: 22 / F ADM Date: 11/11/22 Loc: ER Room: Type: [facility] ER Attending Dr: Copies to: Tommy Bowen DO Ordering Provider: Tommy Bowen DO Date of Service: 11/11/22 CT/CT head/brain wo con: fall seizure Unenhanced head CT TECHNIQUE: Contiguous axial imaging of the head. The CT exam was performed using one or more the following dose reduction techniques: Automated exposure control, adjustment of the MA and/or Kv according to patient size, or use of the iterative reconstruction technique. COMPARISON: 12/31/2020 HISTORY: Seizure. Fell. VENTRICLES: Within normal limits ATROPHY: None BRAIN PARENCHYMA: Adequate dominguez-white matter differentiation identified. HEMORRHAGE: None HERNIATION: No mass effect or herniation INFARCTION: No recent vascular distribution infarction is seen. EXTRA-AXIAL FLUID COLLECTIONS None MIDBRAIN: Unremarkable TOM: Unremarkable MEDULLA: Unremarkable SINUSES: Unremarkable ORBITS: Grossly unremarkable MASTOIDS: Unremarkable BONY STRUCTURES Intact ADDITIONAL FINDINGS: CT/CT head/brain wo con IMPRESSION: Unremarkable exam Impression dictated by: Gerardo Lamar M.D.11/11/2022 1:02 PM Dictation Location: [place] [address] Transcribed By: [facility] 11/11/22 1302 Dictated By: Gerardo Lamar DO 11/11/22 1258 Signed By: 11/11/22 1302 Normal [facility] Complete Blood Count Auto Di ffon 11-11-2022 Basophils (Bld) [#/Vol] 0.0 10*3/uL Normal 0.0-0.2 [facility] Comment on above: Result Comment: PERF ORMED BY: [facility] [address] [place] [address] PATHOLOGIST HEAD OF BUSINESS DEVELOPMENT JOSE LUZ M.D. Performed By: #### L ACTIC, CBC, CMP, PRL ####[place] [address] [place] [id number] [facility] Basophils/100 WBC (Bld) 0.3 % Normal . [facility] Comment on above: Performed By: #### L ACTIC, CBC, CMP, PRL ####[facility] [address] [place] [id number] [place] Eosinophils (Bld) [#/Vol] 0.0 10*3/uL Normal 0.0-0.45 [facility] Comment on above: Performed By: #### L ACTIC, CBC, CMP, PRL ####[address] Eosinophils/100 WBC (Bld) 0.0 % Normal . [facility] Comment on above: Performed By: #### L ACTIC, CBC, CMP, PRL ####[address] Erythrocyte distribution width (RBC) [Ratio] 12.8 % Normal 11.9-15.3 [facility] Comment on above: Performed By: #### L ACTIC, CBC, CMP, PRL ####[address] Hematocrit (Bld) [Volume fraction] 41.0 % Normal 34.0-46.4 [facility] Comment on above: Performed By: #### L ACTIC, CBC, CMP, PRL ####[address] Hemoglobin (Bld) [Mass/Vol] 13.6 g/dL Normal 11.8-15.4 [facility] Comment on above: Performed By: #### L ACTIC, CBC, CMP, PRL ####[address] Lymphocytes (Bld) [#/Vol] 1.7 10*3/uL Normal 1.00-4.8 [facility] Comment on above: Performed By: #### L ACTIC, CBC, CMP, PRL ####[address] Lymphocytes/100 WBC (Bld) 15.4 % Normal . [facility] Comment on above: Performed By: #### L ACTIC, CBC, CMP, PRL ####[address] MCH (RBC) [Entitic mass] 29.0 pg Normal 24.7-34.3 [facility] Comment on above: Performed By: #### L ACTIC, CBC, CMP, PRL ####[address] MCV (RBC) [Entitic vol] 87.8 fL Normal 80-100 [facility] Comment on above: Performed By: #### L ACTIC, CBC, CMP, PRL ####[address] Mean Corpuscular HGB Conc 33.1 g/dL Normal 32.0-35.0 [facility] Comment on above: Performed By: #### L ACTIC, CBC, CMP, PRL ####[address] Monocytes (Bld) [#/Vol] 0.4 10*3/uL Normal 0.0-0.8 [facility] Comment on above: Performed By: #### L ACTIC, CBC, CMP, PRL ####[address] Monocytes/100 WBC (Bld) 18.63 % Normal 0.00-20.00 [facility] Comment on above: Performed By: #### L ACTIC, CBC, CMP, PRL ####[address] Monocytes/100 WBC (Bld) 4.0 % Normal . [facility] Comment on above: Performed By: #### L ACTIC, CBC, CMP, PRL ####[address] Neutrophils (Bld) [#/Vol] 9.1 10*3/uL High 1.8-7.7 [facility] Comment on above: Performed By: #### L ACTIC, CBC, CMP, PRL ####[address] Neutrophils/100 WBC (Bld) 80.3 % Normal . [facility] Comment on above: Performed By: #### L ACTIC, CBC, CMP, PRL ####[address] NRBC% 0.1 /100{WBC} Normal 0-0.5 [facility] Comment on above: Performed By: #### L ACTIC, CBC, CMP, PRL ####[address] Platelet mean volume (Bld) [Entitic vol] 7.9 fL Normal 6.3-10.7 [facility] Comment on above: Performed By: #### L ACTIC, CBC, CMP, PRL ####[address] Platelets (Bld) [#/Vol] 283 10*3/uL Normal 150-450 [facility] Comment on above: Performed By: #### L ACTIC, CBC, CMP, PRL ####[address] RBC (Bld) [#/Vol] 4.67 10*6/uL Normal 3.60-5.00 [facility] Comment on above: Performed By: #### L ACTIC, CBC, CMP, PRL ####[address] WBC (Bld) [#/Vol] 11.3 10*3/uL Normal 3.8-11.6 [facility] Comment on above: Performed By: #### L ACTIC, CBC, CMP, PRL ####[address] Comprehensive Metabolic Pane elvis 11-11-2022 Albumin [Mass/Vol] 4.5 g/dL Normal 3.5-5.7 [facility] Comment on above: Performed By: #### L ACTIC, CBC, CMP, PRL ####[address] Albumin/Globulin [Mass ratio] 1.5 {ratio} Normal [facility] Comment on above: Performed By: #### L ACTIC, CBC, CMP, PRL ####[address] ALP [Catalytic activity/Vol] 49 U/L Normal 34-104 [facility] Comment on above: Performed By: #### L ACTIC, CBC, CMP, PRL ####[address] [address] [facility] ALT [Catalytic activity/Vol] 7 U/L Normal 7-52 [facility] Comment on above: Performed By: #### L ACTIC, CBC, CMP, PRL ####[place] [id number] [facility] Anion gap [Moles/Vol] 12.4 mmol/L Normal 6.0-15.0 [facility] Comment on above: Performed By: #### L ACTIC, CBC, CMP, PRL ####[place] [id number] [facility] AST [Catalytic activity/Vol] 14 U/L Normal 13-39 [facility] Comment on above: Performed By: #### L ACTIC, CBC, CMP, PRL ####[place] [id number] [facility] Bilirubin [Mass/Vol] 0.6 mg/dL Normal 0.3-1.0 [facility] Comment on above: Performed By: #### L ACTIC, CBC, CMP, PRL ####[place] [id number] [facility] Calcium [Mass/Vol] 9.7 mg/dL Normal 8.6-10.3 [facility] Comment on above: Performed By: #### L ACTIC, CBC, CMP, PRL ####[place] [phone] [facility] Chloride [Moles/Vol] 106 mmol/L Normal 98-107 [facility] Comment on above: Performed By: #### L ACTIC, CBC, CMP, PRL ####[address] [address] [facility] CO2 [Moles/Vol] 27.6 mmol/L Normal 21.0-31.0 [facility] Comment on above: Performed By: #### L ACTIC, CBC, CMP, PRL ####[facility] [place] [address] [facility] Creatinine [Mass/Vol] 0.80 mg/dL Normal 0.60-1.20 [facility] Comment on above: Performed By: #### L ACTIC, CBC, CMP, PRL ####[facility] [place] [address] [facility] Creatinine Clr Calc Pharmacy 82.12 [facility] Comment on above: Performed By: #### L ACTIC, CBC, CMP, PRL ####[place] [address] [place] [phone] [place] GFR/1.73 sq M.predicted MDRD (S/P/Bld) [Vol rate/Area] mL/min/{1.73_m2} [facility] Comment on above: Performed By: #### L ACTIC, CBC, CMP, PRL ####[place] [id number] [facility] Globulin (S) [Mass/Vol] 3.0 g/dL [facility] Comment on above: Performed By: #### L ACTIC, CBC, CMP, PRL ####[place] [id number] [facility] Glucose [Mass/Vol] 103 mg/dL High 70-100 [facility] Comment on above: Result Comment: [place] Glucose Reference Range is dependent on time and content of last meal. Glucose of more than 200 mg/dL in a nonstressed, ambulatory subject supports the diagnosis of Diabetes Mellitus. ADA recommended reference range Performed By: #### L ACTIC, CBC, CMP, PRL ####[address] [address] [facility] Potassium [Moles/Vol] 5.0 mmol/L Normal 3.5-5.1 [facility] Comment on above: Performed By: #### L ACTIC, CBC, CMP, PRL ####[place] [address] [place] [address] [facility] Protein [Mass/Vol] 7.5 g/dL Normal 6.4-8.9 [facility] Comment on above: Performed By: #### L ACTIC, CBC, CMP, PRL ####[address] [address] [facility] Sodium [Moles/Vol] 141 mmol/L Normal 136-145 [facility] Comment on above: Performed By: #### L ACTIC, CBC, CMP, PRL ####[address] [address] [facility] Urea nitrogen [Mass/Vol] 11 mg/dL Normal 7-25 [facility] Comment on above: Performed By: #### L ACTIC, CBC, CMP, PRL ####[address] [address] [facility] Dipstick and Microscopicon 0 11-11-2022 Appearance (U) Clear Normal Clear [facility] Comment on above: Order Comment: Name Collection Type:: Clean-Voided Midstream Performed By: #### A DDONUAPLUS UHCG ####[address] [address] [facility] Bacteria,Urine None Seen Normal None Seen [facility] Comment on above: Order Comment: Name Collection Type:: Clean-Voided Midstream Performed By: #### A DDONUAPLUS UHCG ####[place] [id number] [facility] Bilirubin,Urine Negative Normal Negative [facility] Comment on above: Order Comment: Name Collection Type:: Clean-Voided Midstream Performed By: #### A DDONUAPLUS, UHCG ####[address] [address] [facility] Color (U) Yellow Normal Yellow [facility] Comment on above: Order Comment: Name Collection Type:: Clean-Voided Midstream Performed By: #### A DDONUAPLUS UHCG ####[address] [address] [facility] Glucose Ql (U) Normal Normal Normal [facility] Comment on above: Order Comment: Name Collection Type:: Clean-Voided Midstream Performed By: #### A DDONUAPLUS UHCG ####[address] [address] [facility] Hyaline Casts,Urine None Seen Normal 0-8 [facility] Comment on above: Order Comment: Name Collection Type:: Clean-Voided Midstream Performed By: #### A DDONUAPLUS, UHCG ####[address] [address] [facility] Ketones Ql (U) 1+ High Negative [facility] Comment on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 Performed By: #### C MP, CBC #### [facility] [address] [place] [address] [place] Platelets (Bld) [#/Vol] 237 10*3/uL Normal 150-450 [facility] Comment on above: Performed By: #### C MP, CBC #### [facility] [address] RBC (Bld) [#/Vol] 4.39 10*6/uL Normal 3.60-5.00 [facility] Comment on above: Performed By: #### C MP, CBC #### [facility] [address] [place] [address] [place] WBC (Bld) [#/Vol] 6.6 10*3/uL Normal 3.8-11.6 [facility] Comment on above: Performed By: #### C MP, CBC #### [facility] [address] [place] [id number] [facility] Comprehensive Metabolic Pane elvis 09-23-2022 Albumin [Mass/Vol] 4.6 g/dL Normal 3.5-5.7 [facility] Comment on above: Performed By: #### C MP, CBC #### [facility] [address] Albumin/Globulin [Mass ratio] 1.8 {ratio} Normal [facility] Comment on above: Performed By: #### C MP, CBC #### [facility] [address] ALP [Catalytic activity/Vol] 43 U/L Normal 34-104 [facility] Comment on above: Performed By: #### C MP, CBC #### [facility] [address] ALT [Catalytic activity/Vol] 5 U/L Low 7-52 [facility] Comment on above: Performed By: #### C MP, CBC #### [address] Anion gap [Moles/Vol] 10.1 mmol/L Normal 6.0-15.0 [facility] Comment on above: Performed By: #### C MP, CBC #### [facility] [address] AST [Catalytic activity/Vol] 13 U/L Normal 13-39 [facility] Comment on above: Performed By: #### C MP, CBC #### [address] Bilirubin [Mass/Vol] 0.9 mg/dL Normal 0.3-1.0 [facility] Comment on above: Performed By: #### C MP, CBC #### [facility] [address] [place] [address] [place] Calcium [Mass/Vol] 9.9 mg/dL Normal 8.6-10.3 [facility] Comment on above: Performed By: #### C MP, CBC #### [facility] [address] [place] [address] [place] Chloride [Moles/Vol] 104 mmol/L Normal 98-107 [facility] Comment on above: Performed By: #### C MP, CBC #### [facility] [address] [place] [address] [place] CO2 [Moles/Vol] 29.7 mmol/L Normal 21.0-31.0 [facility] Comment on above: Performed By: #### C MP, CBC #### [facility] [address] Creatinine [Mass/Vol] 0.84 mg/dL Normal 0.60-1.20 [facility] Comment on above: Performed By: #### C MP, CBC #### [facility] [address] [place] [address] [place] Creatinine Clr Calc Pharmacy 75.26 [facility] Comment on above: Performed By: #### C MP, CBC #### [place] [address] [place] GFR/1.73 sq M.predicted MDRD (S/P/Bld) [Vol rate/Area] mL/min/{1.73_m2} [facility] Comment on above: Performed By: #### C MP, CBC #### [address] Globulin (S) [Mass/Vol] 2.5 g/dL [facility] Comment on above: Performed By: #### C MP, CBC #### [address] Glucose [Mass/Vol] 78 mg/dL Normal 70-100 [facility] Comment on above: Result Comment: [facility] Glucose Reference Range is dependent on time and content of last meal. Glucose of more than 200 mg/dL in a nonstressed, ambulatory subject supports the diagnosis of Diabetes Mellitus. ADA recommended reference range Performed By: #### C MP, CBC #### [place] [address] [place] Potassium [Moles/Vol] 3.8 mmol/L Normal 3.5-5.1 [facility] Comment on above: Performed By: #### C MP, CBC #### [address] Protein [Mass/Vol] 7.1 g/dL Normal 6.4-8.9 [facility] Comment on above: Performed By: #### C MP, CBC #### [facility] [address] [place] [address] [place] Sodium [Moles/Vol] 140 mmol/L Normal 136-145 [facility] Comment on above: Performed By: #### C MP, CBC #### [facility] [address] Urea nitrogen [Mass/Vol] 12 mg/dL Normal 7-25 [facility] Comment on above: Performed By: #### C MP, CBC #### [facility] [address] [place] [address] [place] D-DIMERon 09-23-2022 D-DIMER 0.19 mg/L FEU Normal <=0.59 [facility] Comment on above: Performed By: #### C MP, HSTROPN #### [facility] [address] [address] [address] Jovanni Maya D-DIMER COMMENTS SEE BELOW Normal [facility] Comment on above: Result Comment: Incr eases in D-Dimer concentration observed with thromboembolic events can be variable due to localization, size, and age of the thrombus. Therefore, a thromboembolic event cannot be diagnosed with certainty on the basis of the reference range. D-Dimers may also be elevated for a variety of disorders including: advanced age, , coronary disease, cancer, liver disease, infection, inflammation, hematoma, DIC, trauma, post-surgery, diabetes, thrombolytic or anticoagulant therapy, stress, and generalized hospitalization. Performed By: #### C MP, HSTROPN #### [facility] [address] [address] [address] Jovanni Maya ECG 12 lead ECGon 09-23-2022 ECG 12 lead ECG [facility] Main [place] [address] [place] [address] Electrocardiograph Report Signed Patient: Bhavna Kovacs MR#: [id number] 668 : 2000 Acct:[id number] Age/Sex: 22 / F ADM Date: 09/23/22 Loc: ER Room: Type: [facility] ER Attending Dr: Ordering Provider: Phyllis Roman DO Date of Service: 09/23/22 ECG/ECG 12 lead ECG: Seizure Copies to: Test Reason : Blood Pressure : 108/069 mmHG Vent. Rate : 069 BPM Atrial Rate : 069 BPM P-R Int : 144 ms QRS Dur : 082 ms QT Int : 352 ms P-R-T Axes : 070 090 066 degrees QTc Int : 377 ms Normal sinus rhythm Rightward axis Borderline ECG When compared with ECG of 13-SEP-2022 10:47, No significant change was found Confirmed by PHYLLIS ROMAN DO ([id number]) on 09/23/2022 7:34:26 PM Referred By: Electronically Signed By:PHYLLIS ROMAN DO Transcribed By: MUS Signed By Phyllis Roman DO 1933 Normal [facility] GROUP A STREP CULTUREon 08-27 S. pyogenes Ag Ql (Unsp spec) Culture Observations: NEGATIVE FOR GROUP A STREPTOCOCCUS. Normal [facility] Comment on above: Performed By: #### C DANIEL, HSTROPN #### [facility] [address] [place] [address] Dr. Jovanni Maya Glucose Poct Glucometerson 0 09-23-2022 Glucose [Mass/Vol] 111 mg/dL Normal [facility] Comment on above: Result Comment: [place] Glucose Reference Range is dependent on time and content of last meal. Glucose of more than 200 mg/dL in a nonstressed, ambulatory subject supports the diagnosis of Diabetes Mellitus. PERFORMED BY: [place] [address] PATHOLOGIST HEAD OF BUSINESS DEVELOPMENT JOSE LUZ M.D. Performed By: #### C MP, CBC #### [place] [address] [place] INFLUENZA A AND B AGon 09-23 INFLUENZA A AG Negative Normal NEGATIVE SEE COMMENT [facility] Comment on above: Performed By: #### I NFLUAB #### [facility] [address] [address] [address] Jovanni Maya INFLUENZA B AG Negative Normal NEGATIVE SEE COMMENT [facility] Comment on above: Performed By: #### I NFLUAB #### [facility] [address] [place] [address] Dr. Jovanni Maya LACTATE/LACTIC ACIDon 2022 Lactate [Moles/Vol] 3.2 mmol/L Critically high 0.4-2.0 [facility] Comment on above: Performed By: #### L ACT #### [facility] [address] [address] [address] Jovanni Maya PREG HCG QUALon 09-23-2022 , QUAL Negative Normal NEGATIVE [facility] Comment on above: Performed By: #### P REG, ACETON #### [facility] [address] [place] [address] Dr. Jovanni Maya PROF 14(COMP METB)on 023 Albumin [Mass/Vol] 4.6 g/dL Normal 3.4-5.0 [facility] Comment on above: Performed By: #### C DANIEL HSTROPN #### [facility] [address] [place] [address] Dr. Jovanni Maya Albumin/Globulin [Mass ratio] 1.5 {ratio} Normal [facility] Comment on above: Performed By: #### C DANIEL HSTROPN #### [facility] [address] [place] [address] Dr. Jovanni Maya ALP [Catalytic activity/Vol] 59 U/L Normal 46-116 [facility] Comment on above: Performed By: #### C DANIEL HSTROPN #### [facility] [address] [place] [address] Dr. Jovanni Maya ALT [Catalytic activity/Vol] 11 U/L Critically low 14-59 [facility] Comment on above: Performed By: #### C DANIEL HSTROPN #### [facility] [address] [place] [address] Dr. Jovanni Maya Anion gap [Moles/Vol] 15.3 mmol/L Normal [facility] Comment on above: Performed By: #### C DANIEL HSTROPN #### [facility] [address] [place] [address] Dr. Jovanni Maya AST [Catalytic activity/Vol] 10 U/L Critically low 15-37 [facility] Comment on above: Performed By: #### C DANIEL, HSTROPN #### [facility] [address] [address] [address] Jovanni Maya Bilirubin [Mass/Vol] 0.8 mg/dL Normal 0.2-1.0 [facility] Comment on above: Performed By: #### C MP, HSTROPN #### [facility] [address] [address] [address] Jovanni Maya Calcium [Mass/Vol] 9.2 mg/dL Normal 8.5-10.1 [facility] Comment on above: Performed By: #### C DANIEL, HSTROPN #### [facility] [address] [place] [address] Dr. Jovanni Maya Chloride [Moles/Vol] 105 mmol/L Normal 98-107 [facility] Comment on above: Performed By: #### C DANIEL, HSTROPN #### [facility] [address] [address] [address] Jovanni Maya CO2 [Moles/Vol] 24.4 mmol/L Normal 21.0-32.0 [facility] Comment on above: Performed By: #### C DANIEL, HSTROPN #### [facility] [address] [place] [address] Dr. Jovanni Maya Creatinine [Mass/Vol] 0.99 mg/dL Normal 0.55-1.02 [facility] Comment on above: Performed By: #### C MP, HSTROPN #### [facility] [address] [place] [address] Dr. Jovanni Maya EGFR-AF PAKISTANI >60 Normal >=60 [facility] Comment on above: Performed By: #### C MP, HSTROPN #### [facility] [address] [place] [address] Dr. Jovanni Maya EGFR-NON AF PAKISTANI >60 Normal >=60 [facility] Comment on above: Performed By: #### C MP, HSTROPN #### [facility] [address] [address] [address] Jovanni Maya Globulin (S) [Mass/Vol] 3.1 g/dL Normal [facility] Comment on above: Performed By: #### C MP, HSTROPN #### [facility] [address] [address] [address] Jovanni Maya Glucose [Mass/Vol] 113 mg/dL Critically high 74-106 [facility] Comment on above: Performed By: #### C MP, HSTROPN #### [facility] [address] [address] [address] Jovanni Maya Potassium [Moles/Vol] 3.7 mmol/L Normal 3.5-5.1 [facility] Comment on above: Performed By: #### C MP, HSTROPN #### [facility] [address] [place] [address] Dr. Jovanni Maya Protein [Mass/Vol] 7.7 g/dL Normal 6.4-8.2 [facility] Comment on above: Performed By: #### C MP, HSTROPN #### [facility] [address] [address] [address] Jovanni Maya Sodium [Moles/Vol] 141 mmol/L Normal 136-145 [facility] Comment on above: Performed By: #### C MP, HSTROPN #### [facility] [address] [address] [address] Jovanni Maya Urea nitrogen [Mass/Vol] 10.0 mg/dL Normal 7.0-18.0 [facility] Comment on above: Performed By: #### C MP, HSTROPN #### [facility] [address] [address] [address] Jovanni Maya Urea nitrogen/Creatinine [Mass ratio] 10.1 mg/mg Normal [facility] Comment on above: Performed By: #### C MP, HSTROPN #### [facility] [address] [address] [address] Jovanni Maya Prolactinon 09-23-2022 Prolactin 11.87 ng/mL Normal 3.34-26.72 [facility] Comment on above: Result Comment: PERF ORMED BY: [facility] [address] [place] [address] PATHOLOGIST HEAD OF BUSINESS DEVELOPMENT JOSE LUZ M.D. Performed By: #### C MP, CBC #### [facility] [address] STREPT SCREENon 09-23-2022 STREP SCREEN A Negative Normal NEGATIVE [facility] Comment on above: Performed By: #### C MP, HSTROPN #### [facility] [address] [address] [address] Jovanni Maya TROPONIN, HIGH SENSITIVITYon 09-23-2022 HSTROP <4.0 Normal 4.0-51.3 [facility] Comment on above: Result Comment: CUT- OFF POINTS HAVE BEEN ESTABLISHED BASED ON THE FOURTH UNIVERSAL DEFINITIONS OF MYOCARDIAL INFARCTION. THE UPPER REFERENCE LIMIT (URL) OF TROPONIN, DEFINED THE 99TH PERCENTILE OF cTnI DISTRIBUTION IN A REFERENCE POPULATION, HAS BEEN CONFIRMED THE DECISION THRESHOLD FOR AL DIAGNOSIS. Performed By: #### C MP, HSTROPN #### [facility] [address] [address] [address] Jovanni Maya Alanine aminotransferase [En zymatic activity/volume] in Serum or PlasmaOrdered By: Federica Bullimore on 09-13-2022 ALT [Catalytic activity/Vol] 5 U/L 7-52 [facility] Albumin [Mass/volume] in Ser um or Plasma by Bromocresol green (BCG) dye binding methoOrdered By: Federica Bullimore on 09-13-2022 Albumin BCG dye [Mass/Vol] 4.3 g/dL 3.5-5.7 [facility] Alkaline phosphatase [Enzyma tic activity/volume] in Serum or PlasmaOrdered By: Federica Bullimore on 09-13-2022 ALP [Catalytic activity/Vol] 45 U/L 34-104 [facility] Aspartate aminotransferase [ Enzymatic activity/volume] in Serum or PlasmaOrdered By: Federica Bullimore on 09-13-2022 AST [Catalytic activity/Vol] 12 U/L 13-39 [facility] Basophils Auto (Bld) [#/Vol] Ordered By: Federica Bullimore on 09-13-2022 Basophils (Bld) [#/Vol] 0.0 10*3/uL 0.0-0.2 [facility] Basophils/100 WBC Auto (Bld) Ordered By: Federica Bullimore on 09-13-2022 Basophils/100 WBC (Bld) 0.7 % . [facility] Bilirubin.total [Mass/volume ] in Serum or PlasmaOrdered By: Federica Bullimore on 09-13-2022 Bilirubin [Mass/Vol] 0.5 mg/dL 0.3-1.0 [facility] Calcium [Mass/volume] in Ser um or PlasmaOrdered By: Federica Bullimore on 09-13-2022 Calcium [Mass/Vol] 9.1 mg/dL 8.6-10.3 [facility] Carbon dioxide, total [Moles /volume] in Serum or PlasmaOrdered By: [facility] Bullimore on 09-13-2022 CO2 [Moles/Vol] 30.0 mmol/L 21.0-31.0 [facility] Chloride [Moles/volume] in S alexis or PlasmaOrdered By: Federica Bullimore on 09-13-2022 Chloride [Moles/Vol] 105 mmol/L 98-107 [facility] Complete Blood Count Auto Di ffon 09-13-2022 Basophils (Bld) [#/Vol] 0.0 10*3/uL Normal 0.0-0.2 [facility] Comment on above: Result Comment: PERF ORMED BY: [place] [address] PATHOLOGIST HEAD OF BUSINESS DEVELOPMENT JOSE LUZ M.D. Performed By: #### C MP, CBC #### [facility] [address] [place] [address] [place] Basophils/100 WBC (Bld) 0.7 % Normal . [facility] Comment on above: Performed By: #### C MP, CBC #### [facility] [address] [place] [address] [place] Eosinophils (Bld) [#/Vol] 0.0 10*3/uL Normal 0.0-0.45 [facility] Comment on above: Performed By: #### C MP, CBC #### [facility] [address] Eosinophils/100 WBC (Bld) 0.5 % Normal . [facility] Comment on above: Performed By: #### C MP, CBC #### [facility] [address] Erythrocyte distribution width (RBC) [Ratio] 13.3 % Normal 11.9-15.3 [facility] Comment on above: Performed By: #### C MP, CBC #### [facility] [address] Hematocrit (Bld) [Volume fraction] 37.5 % Normal 34.0-46.4 [facility] Comment on above: Performed By: #### C MP, CBC #### [address] Hemoglobin (Bld) [Mass/Vol] 12.7 g/dL Normal 11.8-15.4 [facility] Comment on above: Performed By: #### C MP, CBC #### [address] Lymphocytes (Bld) [#/Vol] 2.1 10*3/uL Normal 1.00-4.8 [facility] Comment on above: Performed By: #### C MP, CBC #### [address] Lymphocytes/100 WBC (Bld) 36.0 % Normal . [facility] Comment on above: Performed By: #### C MP, CBC #### [facility] [address] MCH (RBC) [Entitic mass] 29.7 pg Normal 24.7-34.3 [facility] Comment on above: Performed By: #### C MP, CBC #### [address] MCV (RBC) [Entitic vol] 88.0 fL Normal 80-100 [facility] Comment on above: Performed By: #### C MP, CBC #### [facility] [address] Mean Corpuscular HGB Conc 33.8 g/dL Normal 32.0-35.0 [facility] Comment on above: Performed By: #### C MP, CBC #### [facility] [address] [place] [address] [place] Monocytes (Bld) [#/Vol] 0.4 10*3/uL Normal 0.0-0.8 [facility] Comment on above: Performed By: #### C MP, CBC #### [facility] [address] [place] [address] [place] Monocytes/100 WBC (Bld) 17.84 % Normal 0.00-20.00 [facility] Comment on above: Performed By: #### C MP, CBC #### [facility] [address] [place] [address] [place] Monocytes/100 WBC (Bld) 7.0 % Normal . [facility] Comment on above: Performed By: #### C MP, CBC #### [facility] [address] [place] [address] [place] Neutrophils (Bld) [#/Vol] 3.3 10*3/uL Normal 1.8-7.7 [facility] Comment on above: Performed By: #### C MP, CBC #### [facility] [address] [place] [address] [place] Neutrophils/100 WBC (Bld) 55.8 % Normal . [facility] Comment on above: Performed By: #### C MP, CBC #### [facility] [address] [place] [address] [place] NRBC% 0.1 /100{WBC} Normal 0-0.5 [facility] Comment on above: Performed By: #### C MP, CBC #### [facility] [address] [place] [address] [place] Platelet mean volume (Bld) [Entitic vol] 8.0 fL Normal 6.3-10.7 [facility] Comment on above: Performed By: #### C MP, CBC #### [address] Platelets (Bld) [#/Vol] 245 10*3/uL Normal 150-450 [facility] Comment on above: Performed By: #### C MP, CBC #### [address] RBC (Bld) [#/Vol] 4.27 10*6/uL Normal 3.60-5.00 [facility] Comment on above: Performed By: #### C MP, CBC #### [address] WBC (Bld) [#/Vol] 5.9 10*3/uL Normal 3.8-11.6 [facility] Comment on above: Performed By: #### C MP, CBC #### [address] Comprehensive Metabolic Pane elvis 09-13-2022 Albumin [Mass/Vol] 4.3 g/dL Normal 3.5-5.7 [facility] Comment on above: Performed By: #### C MP, CBC #### [address] Albumin/Globulin [Mass ratio] 1.6 {ratio} Normal [facility] Comment on above: Performed By: #### C MP, CBC #### [address] ALP [Catalytic activity/Vol] 45 U/L Normal 34-104 [facility] Comment on above: Performed By: #### C MP, CBC #### [address] ALT [Catalytic activity/Vol] 5 U/L Low 7-52 [facility] Comment on above: Performed By: #### C MP, CBC #### [address] Anion gap [Moles/Vol] 8.7 mmol/L Normal 6.0-15.0 [facility] Comment on above: Performed By: #### C MP, CBC #### [facility] [address] [place] [address] [place] AST [Catalytic activity/Vol] 12 U/L Low 13-39 [facility] Comment on above: Performed By: #### C MP, CBC #### [facility] [address] Bilirubin [Mass/Vol] 0.5 mg/dL Normal 0.3-1.0 [facility] Comment on above: Performed By: #### C MP, CBC #### [facility] [address] Calcium [Mass/Vol] 9.1 mg/dL Normal 8.6-10.3 [facility] Comment on above: Performed By: #### C MP, CBC #### [address] Chloride [Moles/Vol] 105 mmol/L Normal 98-107 [facility] Comment on above: Performed By: #### C MP, CBC #### [facility] [address] [place] [address] CO2 [Moles/Vol] 30.0 mmol/L Normal 21.0-31.0 [facility] Comment on above: Performed By: #### C MP, CBC #### [facility] [address] Creatinine [Mass/Vol] 0.91 mg/dL Normal 0.60-1.20 [facility] Comment on above: Performed By: #### C MP, CBC #### [facility] [address] [place] [address] [place] Creatinine Clr Calc Pharmacy 72.40 Normal [facility] Comment on above: Result Comment: PERF ORMED BY: [place] [address] PATHOLOGIST HEAD OF BUSINESS DEVELOPMENT JOSE LUZ M.D. Performed By: #### C MP, CBC #### [facility] [address] [place] [address] GFR/1.73 sq M.predicted MDRD (S/P/Bld) [Vol rate/Area] mL/min/{1.73_m2} [facility] Comment on above: Performed By: #### C MP, CBC #### [facility] [address] Globulin (S) [Mass/Vol] 2.7 g/dL [facility] Comment on above: Performed By: #### C MP, CBC #### [facility] [address] Glucose [Mass/Vol] 89 mg/dL Normal 74-109 [facility] Comment on above: Result Comment: [facility] Glucose Reference Range is dependent on time and content of last meal. Glucose of more than 200 mg/dL in a nonstressed, ambulatory subject supports the diagnosis of Diabetes Mellitus. ADA recommended reference range Performed By: #### C MP, CBC #### [facility] [address] Potassium [Moles/Vol] 3.7 mmol/L Normal 3.5-5.1 [facility] Comment on above: Performed By: #### C MP, CBC #### [facility] [address] Protein [Mass/Vol] 7.0 g/dL Normal 6.4-8.9 [facility] Comment on above: Performed By: #### C MP, CBC #### [facility] [address] [place] [address] [place] Sodium [Moles/Vol] 140 mmol/L Normal 136-145 [facility] Comment on above: Performed By: #### C MP, CBC #### [facility] [address] [place] [address] [place] Urea nitrogen [Mass/Vol] 8 mg/dL Normal 7-25 [facility] Comment on above: Performed By: #### C MP, CBC #### [facility] [address] [place] [address] [place] Creatinine [Mass/volume] in Serum or PlasmaOrdered By: Federica Wolfe on 09-13-2022 Creatinine [Mass/Vol] 0.91 mg/dL 0.60-1.20 [facility] ECG 12 lead ECGon 09-13-2022 ECG 12 lead ECG [facility] [place] [address] Electrocardiograph Report Signed Patient: Bhavna Kovacs MR#: [id number] 668 : 2000 Acct:[id number] Age/Sex: 22 / F ADM Date: 09/13/22 Loc: ER Room: Type: [facility] ER Attending Dr: Ordering Provider: TIKA Lorenzo Date of Service: 09/13/22 ECG/ECG 12 lead ECG: Seizure Copies to: Test Reason : Blood Pressure : 109/063 mmHG Vent. Rate : 097 BPM Atrial Rate : 097 BPM P-R Int : 144 ms QRS Dur : 080 ms QT Int : 318 ms P-R-T Axes : 083 089 056 degrees QTc Int : 403 ms Normal sinus rhythm Right atrial enlargement Borderline ECG When compared with ECG of 18-AUG-2022 11:28, No significant change was found Confirmed by MARIO ALBERTO JOSE MD ([id number]) on 09/13/2022 7:38:52 PM Referred By: Electronically Signed By:MARIO ALBERTO JOSE MD Transcribed By: MUS Signed By Mario Alberto Jose MD 09/13/22 193 Normal [facility] Eosinophils Auto (Bld) [#/Vo l]Ordered By: Federica Wolfe on 09-13-2022 Eosinophils (Bld) [#/Vol] 0.0 10*3/uL 0.0-0.45 [facility] Eosinophils/100 WBC Auto (Bl d)Ordered By: Federica Wolfe on 09-13-2022 Eosinophils/100 WBC (Bld) 0.5 % . [facility] Erythrocyte distribution wid th Auto (RBC) [Ratio]Ordered By: Federica Wolfe on 09-13-2022 Erythrocyte distribution width (RBC) [Ratio] 13.3 % 11.9-15.3 [facility] Globulin Calc (S) [Mass/Vol] Ordered By: Federica Wolfe on 09-13-2022 Globulin (S) [Mass/Vol] 2.7 g/dL [facility] Glucose [Mass/volume] in Ser um or PlasmaOrdered By: Federica Wolfe on 09-13-2022 Glucose [Mass/Vol] 89 mg/dL 74-109 [facility] Comment on above: ADA recommended refe rence rangeRandom Glucose Reference Range is dependent on time and content of last meal. Glucose of more than 200 mg/dL in a nonstressed, ambulatory subject supports the diagnosis of Diabetes Mellitus. Hematocrit Auto (Bld) [Volum e fraction]Ordered By: Federica Wolfe on 09-13-2022 Hematocrit (Bld) [Volume fraction] 37.5 % 34.0-46.4 [facility] Hemoglobin [Mass/volume] in BloodOrdered By: Federica Wolfe on 09-13-2022 Hemoglobin (Bld) [Mass/Vol] 12.7 g/dL 11.8-15.4 [facility] Laboratory - Chemistry and C hemistry - challengeOrdered By: Federica Wolfe on 09-13-2022 GFR/1.73 sq M.predicted MDRD (S/P/Bld) [Vol rate/Area] mL/min/{1.73_m2} [facility] Lamotrigine (Lamictal)on Lamotrigine (Lamictal) 6.3 ug/mL Normal 2.0-20.0 [facility] Comment on above: Result Comment: Dete ction Limit = 1.0 Performed at: - [address] [id number] Grazing Aide: Sina Hills MD, Phone: [phone] Performed By: #### C MP, CBC #### [address] Leukocytes [#/volume] correc manjula for nucleated erythrocytes in Blood by Automated counOrdered By: Federica Wolfe on 09-13-2022 WBC corrected for nucl RBC Auto (Bld) [#/Vol] 5.9 10*3/uL 3.8-11.6 [facility] Levetiracetam (Keppra)on levETIRAcetam [Mass/Vol] 9.9 ug/mL Low 10.0-40.0 [facility] Comment on above: Result Comment: Perf ormed at: [facility] - [facility] [address] [id number] Grazing Aide: Sina Hills MD, Phone: [phone] PERFORMED BY: [place] [address] PATHOLOGIST HEAD OF BUSINESS DEVELOPMENT JOSE LUZ M.D. Performed By: #### C MP, CBC #### [address] Lymphocytes Auto (Bld) [#/Vo l]Ordered By: Federica Bullimore on 09-13-2022 Lymphocytes (Bld) [#/Vol] 2.1 10*3/uL 1.00-4.8 [facility] Lymphocytes/100 WBC Auto (Bl d)Ordered By: Federica Bullimore on 09-13-2022 Lymphocytes/100 WBC (Bld) 36.0 % . [facility] MCH Auto (RBC) [Entitic mass ]Ordered By: Federica Bullimore on 09-13-2022 MCH (RBC) [Entitic mass] 29.7 pg 24.7-34.3 [facility] MCHC Auto (RBC) [Mass/Vol]Or dered By: Federica Bullimore on 09-13-2022 MCHC (RBC) [Mass/Vol] 33.8 g/dL 32.0-35.0 [facility] MCV Auto (RBC) [Entitic vol] Ordered By: Federica Bullimore on 09-13-2022 MCV (RBC) [Entitic vol] 88.0 fL 80-100 [facility] Monocyte distribution width [Entitic volume] in Blood by AutomatedOrdered By: Federica Bullimore on 09-13-2022 Monocyte distribution width Auto (Bld) [Entitic vol] 17.84 % 0.00-20.00 [facility] Monocytes Auto (Bld) [#/Vol] Ordered By: Federica Bullimore on 09-13-2022 Monocytes (Bld) [#/Vol] 0.4 10*3/uL 0.0-0.8 [facility] Monocytes/100 WBC Auto (Bld) Ordered By: Federica Bullimore on 09-13-2022 Monocytes/100 WBC (Bld) 7.0 % . [facility] Neutrophils Auto (Bld) [#/Vo l]Ordered By: Federica Bullimore on 09-13-2022 Neutrophils (Bld) [#/Vol] 3.3 10*3/uL 1.8-7.7 [facility] Neutrophils/100 WBC Auto (Bl d)Ordered By: Federica Bullimore on 09-13-2022 Neutrophils/100 WBC (Bld) 55.8 % . [facility] No Panel InformationOrdered By: Federica Giordanoimore on 09-13-2022 Pharmacy Creatinine Clearance (Chem 72.40 [facility] Nucleated erythrocytes [Pres ence] in Blood by Automated countOrdered By: Federica Bullimore on 09-13-2022 Nucleated RBC Auto Ql (Bld) 0.1 /100{WBC} 0-0.5 [facility] Platelet mean volume Auto (B ld) [Entitic vol]Ordered By: Federica Bullimore on 09-13-2022 Platelet mean volume (Bld) [Entitic vol] 8.0 fL 6.3-10.7 [facility] Platelets Auto (Bld) [#/Vol] Ordered By: Federica Bullimore on 09-13-2022 Platelets (Bld) [#/Vol] 245 10*3/uL 150-450 [facility] Potassium [Moles/volume] in Serum or PlasmaOrdered By: Federica Bullimore on 09-13-2022 Potassium [Moles/Vol] 3.7 mmol/L 3.5-5.1 [facility] Protein [Mass/volume] in Ser um or PlasmaOrdered By: Federica Bullimore on 09-13-2022 Protein [Mass/Vol] 7.0 g/dL 6.4-8.9 [facility] RBC Auto (Bld) [#/Vol]Ordere d By: Federica Bullimore on 09-13-2022 RBC (Bld) [#/Vol] 4.27 10*6/uL 3.60-5.00 [facility] Serum or plasma albumin/glob ulin mass ratioOrdered By: Federica Bullimore on 09-13-2022 Albumin/Globulin [Mass ratio] 1.6 {ratio} [facility] Serum or plasma anion gap de terminationOrdered By: Federica Bullimore on 09-13-2022 Anion gap [Moles/Vol] 8.7 mmol/L 6.0-15.0 [facility] Sodium [Moles/volume] in Ser um or PlasmaOrdered By: Federica Bullimore on 09-13-2022 Sodium [Moles/Vol] 140 mmol/L 136-145 [facility] Urea nitrogen [Mass/volume] in Serum or PlasmaOrdered By: Federica Bullimore on 09-13-2022 Urea nitrogen [Mass/Vol] 8 mg/dL 7-25 [facility] WBC Auto (Bld) [#/Vol]Ordere d By: Federica Bullimore on 09-13-2022 WBC (Bld) [#/Vol] 5.9 10*3/uL 3.8-11.6 [facility] Automated erythrocytes count in urine sediment (number/area)Ordered By: Shanelle Bowen on 08-30-2022 RBC Auto (Urine sed) [#/Area] 5-9 [HPF] 0-4 [facility] Automated leukocytes count i n urine sediment (number/area)Ordered By: Shanelle Bowen on 08-30-2022 WBC Auto (Urine sed) [#/Area] 5-9 [HPF] 0-4 [facility] Basic Metabolic Panelon Anion gap [Moles/Vol] 17.7 mmol/L High 6.0-15.0 [facility] Comment on above: Performed By: #### ELKE El, CBC ####[facility] [id number] [place] [address] [facility]#### LEV, LAMOT ####[facility] , Calcium [Mass/Vol] 9.4 mg/dL Normal 8.2-10.2 [facility] Comment on above: Performed By: #### Kp Santamaria BMP, CBC ####[facility] [place] [address] [place]#### LEV, LAMOT ####[facility] , Chloride [Moles/Vol] 102 mmol/L Normal 95-114 [facility] Comment on above: Performed By: #### M G, BMP, CBC ####[place] [address] [place]#### LEV, LAMOT ####[facility] , CO2 [Moles/Vol] 21.7 mmol/L Low 22.0-30.0 [facility] Comment on above: Performed By: #### M G, BMP, CBC ####[place] [address] [place]#### LEV, LAMOT ####[facility] , Creatinine [Mass/Vol] 0.99 mg/dL Normal 0.44-1.03 [facility] Comment on above: Performed By: #### M G, BMP, CBC ####[place] [address] [place]#### LEV, LAMOT ####[facility] , Creatinine Clr Calc Pharmacy 67.83 [facility] Comment on above: Performed By: #### M G, BMP, CBC ####[place] [address] [place]#### LEV, LAMOT ####[facility] , Estimated GFR ( Cher > 60 [facility] Comment on above: Result Comment: GFR estimated reference range: According to KDOQI guidelines, <60 ml/min/1.73m2 is sufficient to diagnose a patient with chronic kidney disease. Performed By: #### M G, BMP, CBC ####[place] [address] [place]#### LEV, LAMOT ####[facility] , Estimated GFR (Non- Am > 60 [facility] Comment on above: Performed By: #### M Rosalio, BMP, CBC ####[facility] [place] [address] [place]#### LEV, LAMOT ####[facility] , Glucose [Mass/Vol] 101 mg/dL High 70-100 [facility] Comment on above: Result Comment: [place] Glucose Reference Range is dependent on time and content of last meal. Glucose of more than 200 mg/dL in a nonstressed, ambulatory subject supports the diagnosis of Diabetes Mellitus. ADA recommended reference range Performed By: #### M G, BMP, CBC ####[place] [address] [place]#### LEV, LAMOT ####[facility] , Potassium [Moles/Vol] 3.4 mmol/L Low 3.5-5.1 [facility] Comment on above: Performed By: #### Kp Santamaria, BMP, CBC ####[place] [address] [place] [address] [place]#### LEV, LAMOT ####[facility] , Sodium [Moles/Vol] 138 mmol/L Normal 136-146 [facility] Comment on above: Performed By: #### Kp Santamaria, BMP, CBC ####[facility] [place] [address] [place]#### LEV, LAMOT ####[facility] , Urea nitrogen [Mass/Vol] 5 mg/dL Low 9-23 [facility] Comment on above: Performed By: #### M G, BMP, CBC ####[address] [place] [address] [place]#### LEV, LAMOT ####[facility] , Basophils Auto (Bld) [#/Vol] Ordered By: Shanelle Bowen on 08-30-2022 Basophils (Bld) [#/Vol] 0.0 10*3/uL 0.0-0.2 [facility] Basophils/100 WBC Auto (Bld) Ordered By: Shanelle Bowen on 08-30-2022 Basophils/100 WBC (Bld) 0.5 % . [facility] Bilirubin Test strip Ql (U)O rdered By: Shanelle Bowen on 08-30-2022 Bilirubin Ql (U) Negative Negative [facility] Calcium [Mass/volume] in Ser um or PlasmaOrdered By: Shanelle Bowen on 08-30-2022 Calcium [Mass/Vol] 9.4 mg/dL 8.2-10.2 [facility] Carbon dioxide, total [Moles /volume] in Serum or PlasmaOrdered By: Shanelle Bowen on 08-30-2022 CO2 [Moles/Vol] 21.7 mmol/L 22.0-30.0 [facility] Chloride [Moles/volume] in S alexis or PlasmaOrdered By: Shanelle Bowen on 08-30-2022 Chloride [Moles/Vol] 102 mmol/L 95-114 [facility] Color Auto (U)Ordered By: Brian Bowen on 08-30-2022 Color (U) Yellow Yellow [facility] Complete Blood Count Auto Di ffon 08-30-2022 Basophils (Bld) [#/Vol] 0.0 10*3/uL Normal 0.0-0.2 [facility] Comment on above: Result Comment: PERF ORMED BY: [facility] [address] [facility] [place] [address] PATHOLOGIST HEAD OF BUSINESS DEVELOPMENT JOSE LUZ M.D. Performed By: #### M G, BMP, CBC ####[facility] [id number]#### LEV, LAMOT ####[facility] , Basophils/100 WBC (Bld) 0.5 % Normal . [facility] Comment on above: Performed By: #### M G, BMP, CBC ####[facility]#### LEV, LAMOT ####[facility] , Eosinophils (Bld) [#/Vol] 0.1 10*3/uL Normal 0.0-0.45 [facility] Comment on above: Performed By: #### M G, BMP, CBC ####[place] [address] [place]#### LEV, LAMOT ####[facility] , Eosinophils/100 WBC (Bld) 1.2 % Normal . [facility] Comment on above: Performed By: #### M G, BMP, CBC ####[place] [address] [place]#### LEV, LAMOT ####[facility] , Erythrocyte distribution width (RBC) [Ratio] 13.9 % Normal 11.9-15.3 [facility] Comment on above: Performed By: #### M G, BMP, CBC ####[place] [address] [place]#### LEV, LAMOT ####[facility] , Hematocrit (Bld) [Volume fraction] 43.8 % Normal 34.0-46.4 [facility] Comment on above: Performed By: #### M G, BMP, CBC ####[place] [address] [place]#### LEV, LAMOT ####[facility] , Hemoglobin (Bld) [Mass/Vol] 14.6 g/dL Normal 11.8-15.4 [facility] Comment on above: Performed By: #### M G, BMP, CBC ####[place] [address] [place]#### LEV, LAMOT ####[facility] , Lymphocytes (Bld) [#/Vol] 3.9 10*3/uL Normal 1.00-4.8 [facility] Comment on above: Performed By: #### M G, BMP, CBC ####[place] [address] [place]#### LEV, LAMOT ####[facility] , Lymphocytes/100 WBC (Bld) 36.9 % Normal . [facility] Comment on above: Performed By: #### M G, BMP, CBC ####[address]#### LEV, LAMOT ####[facility] , MCH (RBC) [Entitic mass] 29.5 pg Normal 24.7-34.3 [facility] Comment on above: Performed By: #### M G, BMP, CBC ####[address]#### LEV, LAMOT ####[facility] , MCV (RBC) [Entitic vol] 88.7 fL Normal 80-100 [facility] Comment on above: Performed By: #### M G, BMP, CBC ####[place] [address] [place]#### LEV, LAMOT ####[facility] , Mean Corpuscular HGB Conc 33.3 g/dL Normal 32.0-35.0 [facility] Comment on above: Performed By: #### Kp G, BMP, CBC ####[address]#### LEV, LAMOT ####[facility] , Monocytes (Bld) [#/Vol] 0.6 10*3/uL Normal 0.0-0.8 [facility] Comment on above: Performed By: #### M G, BMP, CBC ####[place] [address] [place]#### LEV, LAMOT ####[facility] , Monocytes/100 WBC (Bld) 19.23 % Normal 0.00-20.00 [facility] Comment on above: Performed By: #### M G, BMP, CBC ####[facility] [address] [place] [address] [place]#### LEV, LAMOT ####[facility] , Monocytes/100 WBC (Bld) 5.6 % Normal . [facility] Comment on above: Performed By: #### M G, BMP, CBC ####[place] [address] [place]#### LEV, LAMOT ####[facility] , Neutrophils (Bld) [#/Vol] 5.9 10*3/uL Normal 1.8-7.7 [facility] Comment on above: Performed By: #### M G, BMP, CBC ####[place] [address] [place]#### LEV, LAMOT ####[facility] , Neutrophils/100 WBC (Bld) 55.8 % Normal . [facility] Comment on above: Performed By: #### M G, BMP, CBC ####[place] [address] [place]#### LEV, LAMOT ####[facility] , NRBC% 0.1 /100{WBC} Normal 0-0.5 [facility] Comment on above: Performed By: #### M G, BMP, CBC ####[place] [address] [place]#### LEV, LAMOT ####[facility] , Platelet mean volume (Bld) [Entitic vol] 8.4 fL Normal 6.3-10.7 [facility] Comment on above: Performed By: #### M G, BMP, CBC ####[place] [address] [place]#### LEV, LAMOT ####[facility] , Platelets (Bld) [#/Vol] 288 10*3/uL Normal 150-450 [facility] Comment on above: Performed By: #### M G, BMP, CBC ####[place] [address]#### LEV, LAMOT ####[facility] , RBC (Bld) [#/Vol] 4.94 10*6/uL Normal 3.60-5.00 [facility] Comment on above: Performed By: #### M G, BMP, CBC ####[address]#### LEV, LAMOT ####[facility] , WBC (Bld) [#/Vol] 10.5 10*3/uL Normal 3.8-11.6 [facility] Comment on above: Performed By: #### M G, BMP, CBC ####[address]#### LEV, LAMOT ####[facility] , Creatinine and Glomerular fi ltration rate.predicted panel (S/P/Bld)Ordered By: Shanelle Bowen on 08-30-2022 Creatinine [Mass/Vol] 0.99 mg/dL 0.44-1.03 [facility] Dipstick and Microscopicon 0 08-30-2022 Appearance (U) Clear Normal Clear [facility] Comment on above: Order Comment: Name Collection Type:: Clean-Voided Midstream Performed By: #### C UU, ADDONUAPLUS ####[address] Bacteria,Urine None Seen Normal None Seen [facility] Comment on above: Order Comment: Name Collection Type:: Clean-Voided Midstream Performed By: #### C UU, ADDONUAPLUS ####[address] Bilirubin,Urine Negative Normal Negative [facility] Comment on above: Order Comment: Name Collection Type:: Clean-Voided Midstream Performed By: #### C UU, ADDONUAPLUS ####[address] Color (U) Yellow Normal Yellow [facility] Comment on above: Order Comment: Name Collection Type:: Clean-Voided Midstream Performed By: #### C UU, ADDONUAPLUS ####[address] [address] [facility] Glucose Ql (U) Normal Normal Normal [facility] Comment on above: Order Comment: Name Collection Type:: Clean-Voided Midstream Performed By: #### C UU, ADDONUAPLUS ####[address] [address] [facility] Hyaline Casts,Urine 0-8 Normal 0-8 [facility] Comment on above: Order Comment: Name Collection Type:: Clean-Voided Midstream Result Comment: PERF ORMED BY: [facility] [address] [facility] [place] [address] PATHOLOGIST HEAD OF BUSINESS DEVELOPMENT JOSE LUZ M.D. Performed By: #### C UU, ADDONUAPLUS ####[address] [address] [facility] Ketones Ql (U) Trace High Negative [facility] Comment on above: Order Comment: Name Collection Type:: Clean-Voided Midstream Performed By: #### C UU, ADDONUAPLUS ####[address] [address] [facility] Leukocyte esterase Test strip Ql (U) 1+ High Negative [facility] Comment on above: Order Comment: Name Collection Type:: Clean-Voided Midstream Performed By: #### C UU, ADDONUAPLUS ####[address] [address] [place] Nitrite,Urine Negative Normal Negative [facility] Comment on above: Order Comment: Name Collection Type:: Clean-Voided Midstream Performed By: #### C UU, ADDONUAPLUS ####[address] [address] [facility] Occult Blood,Urine 3+ High Negative [facility] Comment on above: Order Comment: Name Collection Type:: Clean-Voided Midstream Result Comment: PERF ORMED BY: [facility] [address] [place] [address] PATHOLOGIST HEAD OF BUSINESS DEVELOPMENT JOSE LUZ M.D. Performed By: #### C UU, ADDONUAPLUS ####[place] [id number] [facility] pH (U) 6.5 [pH] Normal 5.0-9.0 [facility] Comment on above: Order Comment: Name Collection Type:: Clean-Voided Midstream Performed By: #### C UU, ADDONUAPLUS ####[place] [id number] [facility] Protein,Urine Trace High Negative [facility] Comment on above: Order Comment: Name Collection Type:: Clean-Voided Midstream Performed By: #### C UU, ADDONUAPLUS ####[place] [id number] [facility] RBC,Urine 5-9 High 0-4 [facility] Comment on above: Order Comment: Name Collection Type:: Clean-Voided Midstream Performed By: #### C UU, ADDONUAPLUS ####[address] Specificy [place],Urine 1.016 Normal 1.001-1.030 [facility] Comment on above: Order Comment: Name Collection Type:: Clean-Voided Midstream Performed By: #### C UU, ADDONUAPLUS ####[place] [id number] [facility] Squamous Epithelial Cell,Urine 1-2 Normal 0-2 [facility] Comment on above: Order Comment: Name Collection Type:: Clean-Voided Midstream Performed By: #### C UU, ADDONUAPLUS ####[address] Urobilinogen,Urine Normal Normal Normal [facility] Comment on above: Order Comment: Name Collection Type:: Clean-Voided Midstream Performed By: #### C UU, ADDONUAPLUS ####[place] [id number] [facility] WBC,Urine 5-9 High 0-4 [facility] Comment on above: Order Comment: Name Collection Type:: Clean-Voided Midstream Performed By: #### C UU, AUGUSTINE ####[facility] [id number] [place] [id number] [facility] Eosinophils Auto (Bld) [#/Vo l]Ordered By: Shanelle Bowen on 08-30-2022 Eosinophils (Bld) [#/Vol] 0.1 10*3/uL 0.0-0.45 [facility] Eosinophils/100 WBC Auto (Bl d)Ordered By: Shanelle Bowen on 08-30-2022 Eosinophils/100 WBC (Bld) 1.2 % . [facility] Erythrocyte distribution wid th Auto (RBC) [Ratio]Ordered By: Shanelle Bowen on 08-30-2022 Erythrocyte distribution width (RBC) [Ratio] 13.9 % 11.9-15.3 [facility] Estimated glomerular filtrat ion rate (GFR) non- AmericanOrdered By: Shaenlle Bowen on 08-30-2022 GFR/1.73 sq M.predicted among non-blacks MDRD (S/P/Bld) [Vol rate/Area] > 60 mL/Min [facility] Glucose [Mass/volume] in Ser um or PlasmaOrdered By: Shanelle Bowen on 08-30-2022 Glucose [Mass/Vol] 101 mg/dL 70-100 [facility] Comment on above: ADA recommended refe rence rangeRandom Glucose Reference Range is dependent on time and content of last meal. Glucose of more than 200 mg/dL in a nonstressed, ambulatory subject supports the diagnosis of Diabetes Mellitus. Hematocrit Auto (Bld) [Volum e fraction]Ordered By: Shanelle Bowen on 08-30-2022 Hematocrit (Bld) [Volume fraction] 43.8 % 34.0-46.4 [facility] Hemoglobin [Mass/volume] in BloodOrdered By: Shanelle Bowen on 08-30-2022 Hemoglobin (Bld) [Mass/Vol] 14.6 g/dL 11.8-15.4 [facility] Ketones Auto test strip (U) [Mass/Vol]Ordered By: Shanelle Bowen on 08-30-2022 Ketones (U) [Mass/Vol] Trace Negative [facility] Laboratory - Chemistry and C hemistry - challengeOrdered By: Shanelle Bowen on 08-30-2022 Magnesium [Mass/Vol] 2.2 mg/dL 1.6-2.6 [facility] - UrinalysisOrder ed By: Shanelle Bowen on 08-30-2022 Hyaline casts LM Ql (Urine sed) 0-8 [LPF] 0-8 [facility] Lamotrigine (Lamictal)on Lamotrigine (Lamictal) 4.2 ug/mL Normal 2.0-20.0 [facility] Comment on above: Result Comment: Dete ction Limit = 1.0 Performed at: [facility] [id number] Grazing Aide: Sina Hills MD, Phone: [phone] Performed By: #### ELKE El, CBC ####[facility]#### LEV, LAMOT ####[facility] , Leukocytes [#/volume] correc manjula for nucleated erythrocytes in Blood by Automated counOrdered By: Shanelle Bowen on 08-30-2022 WBC corrected for nucl RBC Auto (Bld) [#/Vol] 10.5 10*3/uL 3.8-11.6 [facility] Levetiracetam (Keppra)on levETIRAcetam [Mass/Vol] 41.6 ug/mL High 10.0-40.0 [facility] Comment on above: Result Comment: Perf ormed at: [facility] [id number] Grazing Aide: Sina Hills MD, Phone: [phone] PERFORMED BY: [facility] [address] [place] [address] PATHOLOGIST HEAD OF BUSINESS DEVELOPMENT JOSE LUZ M.D. Performed By: #### ELKE El, CBC ####[facility] [id number]#### LEV, LAMOT ####[facility] , Lymphocytes Auto (Bld) [#/Vo l]Ordered By: Shanelle Bowen on 08-30-2022 Lymphocytes (Bld) [#/Vol] 3.9 10*3/uL 1.00-4.8 [facility] Lymphocytes/100 WBC Auto (Bl d)Ordered By: Shanelle Bowen on 08-30-2022 Lymphocytes/100 WBC (Bld) 36.9 % . [facility] MCH Auto (RBC) [Entitic mass ]Ordered By: Shanelle Bowen on 08-30-2022 MCH (RBC) [Entitic mass] 29.5 pg 24.7-34.3 [facility] MCHC Auto (RBC) [Mass/Vol]Or dered By: Sahnelle Bowen on 08-30-2022 MCHC (RBC) [Mass/Vol] 33.3 g/dL 32.0-35.0 [facility] MCV Auto (RBC) [Entitic vol] Ordered By: Shanelle Bowen on 08-30-2022 MCV (RBC) [Entitic vol] 88.7 fL 80-100 [facility] Magnesiumon 08-30-2022 Magnesium [Mass/Vol] 2.2 mg/dL Normal 1.6-2.6 [facility] Comment on above: Result Comment: PERF ORMED BY: [facility] [address] [place] [address] PATHOLOGIST HEAD OF BUSINESS DEVELOPMENT JOSE LUZ M.D. Performed By: #### M G, BMP, CBC ####[facility] [id number]#### LEV, LAMOT ####[facility] , Monocyte distribution width [Entitic volume] in Blood by AutomatedOrdered By: Shanelle Bowen on 08-30-2022 Monocyte distribution width Auto (Bld) [Entitic vol] 19.23 % 0.00-20.00 [facility] Monocytes Auto (Bld) [#/Vol] Ordered By: Shanelle Bowen on 08-30-2022 Monocytes (Bld) [#/Vol] 0.6 10*3/uL 0.0-0.8 [facility] Monocytes/100 WBC Auto (Bld) Ordered By: Shanelle Bowen on 08-30-2022 Monocytes/100 WBC (Bld) 5.6 % . [facility] Neutrophils Auto (Bld) [#/Vo l]Ordered By: Shanelle Bowen on 08-30-2022 Neutrophils (Bld) [#/Vol] 5.9 10*3/uL 1.8-7.7 [facility] Neutrophils/100 WBC Auto (Bl d)Ordered By: Shanelle Bowen on 08-30-2022 Neutrophils/100 WBC (Bld) 55.8 % . [facility] Nitrite Test strip Ql (U)Ord ered By: Shanelle Bowen on 08-30-2022 Nitrite Ql (U) Negative Negative [facility] No Panel InformationOrdered By: Shanelle Bowen on 08-30-2022 Lamotrigine (Lamictal) Level 4.2 ug/mL 2.0-20.0 [facility] Comment on above: Detection Limit = 1. 0Performed at: [facility] [address] [id number] Director: Sina Hills MD, Phone: [phone] Levetiracetam (Keppra) Level 41.6 ug/mL 10.0-40.0 [facility] Comment on above: Performed at: [facility] [address] [id number] Director: Sina Hills MD, Phone: [phone] Estimated GFR () > 60 mL/Min [facility] Comment on above: GFR estimated refere nce range: According to KDOQI guidelines, <60 ml/min/1.73m2 is sufficient to diagnose a patient with chronic kidney disease. Pharmacy Creatinine Clearance (Chem 67.83 [facility] Nucleated erythrocytes [Pres ence] in Blood by Automated countOrdered By: Shanelle Bowen on 08-30-2022 Nucleated RBC Auto Ql (Bld) 0.1 /100{WBC} 0-0.5 [facility] Platelet mean volume Auto (B ld) [Entitic vol]Ordered By: Shanelle Bowen on 08-30-2022 Platelet mean volume (Bld) [Entitic vol] 8.4 fL 6.3-10.7 [facility] Platelets Auto (Bld) [#/Vol] Ordered By: Shanelle Bowen on 08-30-2022 Platelets (Bld) [#/Vol] 288 10*3/uL 150-450 [facility] Potassium [Moles/volume] in Serum or PlasmaOrdered By: Shanelle Bowen on 08-30-2022 Potassium [Moles/Vol] 3.4 mmol/L 3.5-5.1 [facility] Protein Auto test strip (U) [Mass/Vol]Ordered By: Shanelle Bowen on 08-30-2022 Protein (U) [Mass/Vol] Trace mg/dL Negative [facility] RBC Auto (Bld) [#/Vol]Ordere d By: Shanelle Bowen on 08-30-2022 RBC (Bld) [#/Vol] 4.94 10*6/uL 3.60-5.00 [facility] Serum or plasma anion gap de terminationOrdered By: Shanelle Bowen on 08-30-2022 Anion gap [Moles/Vol] 17.7 mmol/L 6.0-15.0 [facility] Sodium [Moles/volume] in Ser um or PlasmaOrdered By: Shanelle Bowen on 08-30-2022 Sodium [Moles/Vol] 138 mmol/L 136-146 [facility] Specific gravity Auto test s trip (U) [Rel density]Ordered By: Shanelle Bowen on 08-30-2022 Specific gravity (U) [Rel density] 1.016 1.001-1.030 [facility] Squamous epithelial cells de tection in urine sediment by light microscopyOrdered By: Shanelle Bowen on 08-30-2022 Epithelial cells.squamous LM Ql (Urine sed) 1-2 [HPF] 0-2 [facility] Urea nitrogen [Mass/volume] in Serum or PlasmaOrdered By: Shanelle Bowen on 08-30-2022 Urea nitrogen [Mass/Vol] 5 mg/dL 9-23 [facility] Urine Cultureon 08-30-2022 Bacteria identified Cx Nom (U) <9,000 colonies/ml mixed bacterial skin contaminants 2 Days PERFORMED BY: [facility] [address] [place] [address] PATHOLOGIST HEAD OF BUSINESS DEVELOPMENT JOSE LUZ M.D. Normal [facility] Comment on above: Performed By: #### C UU, ADDONUAPLUS ####[facility] [id number] [place] [id number] [facility] Urine bacteria detection by automated methodOrdered By: Shanelle Bowen on 08-30-2022 Bacteria Auto Ql (U) None seen None Seen [facility] Urine clarity by refractomet ry automatedOrdered By: Shanelle Bowen on 08-30-2022 Clarity Refractometry automated (U) Clear Clear [facility] Urine culture routineOrdered By: Shanelle Bowen on 08-30-2022 Bacteria identified Cx Nom (U) 2 Days [facility] Urine glucose measurement by automated test strip (mass/volume)Ordered By: Shanelle Bowen on 08-30-2022 Glucose Auto test strip (U) [Mass/Vol] Normal mg/dL Normal [facility] Urine hemoglobin detection b y automated test stripOrdered By: Shanelle Bowen on 08-30-2022 Hemoglobin Auto test strip Ql (U) 3+ Negative [facility] Urine leukocyte esterase det ection by automated test stripOrdered By: Shanelle Bowen on 08-30-2022 Leukocyte esterase Auto test strip Ql (U) 1+ Negative [facility] Urobilinogen Auto test strip (U) [Mass/Vol]Ordered By: Shanelle Bowen on 08-30-2022 Urobilinogen (U) [Mass/Vol] Normal mg/dL Normal [facility] WBC Auto (Bld) [#/Vol]Ordere d By: Shanelle Bowen on 08-30-2022 WBC (Bld) [#/Vol] 10.5 10*3/uL 3.8-11.6 [facility] pH Auto test strip (U)Ordere d By: Shanelle Bowen on 08-30-2022 pH (U) 6.5 [pH] 5.0-9.0 [facility] Albumin [Mass/volume] in Ser um or PlasmaOrdered By: Roberto Segovia on 08-18-2022 Albumin [Mass/Vol] 4.6 g/dL 3.2-5.5 [facility] Alkaline phosphatase [Enzyma tic activity/volume] in Serum or PlasmaOrdered By: Roberto Segovia on 08-18-2022 ALP [Catalytic activity/Vol] 50 U/L 32-92 [facility] Aspartate aminotransferase [ Enzymatic activity/volume] in Serum or PlasmaOrdered By: Roberto Segovia on 08-18-2022 AST [Catalytic activity/Vol] 19 U/L 10-42 [facility] Basophils Auto (Bld) [#/Vol] Ordered By: Roberto Segovia on 08-18-2022 Basophils (Bld) [#/Vol] 0.0 10*3/uL 0.0-0.2 [facility] Basophils/100 WBC Auto (Bld) Ordered By: Roberto Segovia on 08-18-2022 Basophils/100 WBC (Bld) 0.5 % . [facility] Calcium [Mass/volume] in Ser um or PlasmaOrdered By: Roberto Segovia on 08-18-2022 Calcium [Mass/Vol] 9.4 mg/dL 8.2-10.2 [facility] Carbon dioxide, total [Moles /volume] in Serum or PlasmaOrdered By: Roberto Segovia on 08-18-2022 CO2 [Moles/Vol] 26.7 mmol/L 22.0-30.0 [facility] Complete Blood Count Auto Di ffon 08-18-2022 Basophils (Bld) [#/Vol] 0.0 10*3/uL Normal 0.0-0.2 [facility] Comment on above: Result Comment: PERF ORMED BY: [facility] [address] [place] [address] PATHOLOGIST HEAD OF BUSINESS DEVELOPMENT JOSE LUZ M.D. Performed By: #### C MP, CBC #### [facility] [address] Basophils/100 WBC (Bld) 0.5 % Normal . [facility] Comment on above: Performed By: #### C MP, CBC #### [facility] [address] [place] [address] [place] Eosinophils (Bld) [#/Vol] 0.0 10*3/uL Normal 0.0-0.45 [facility] Comment on above: Performed By: #### C MP, CBC #### [facility] [address] [place] [address] [place] Eosinophils/100 WBC (Bld) 0.5 % Normal . [facility] Comment on above: Performed By: #### C MP, CBC #### [facility] [address] Erythrocyte distribution width (RBC) [Ratio] 13.7 % Normal 11.9-15.3 [facility] Comment on above: Performed By: #### C MP, CBC #### [facility] [address] Hematocrit (Bld) [Volume fraction] 39.6 % Normal 34.0-46.4 [facility] Comment on above: Performed By: #### C MP, CBC #### [facility] [address] [place] [address] [place] Hemoglobin (Bld) [Mass/Vol] 13.3 g/dL Normal 11.8-15.4 [facility] Comment on above: Performed By: #### C MP, CBC #### [facility] [address] [place] [address] [place] Lymphocytes (Bld) [#/Vol] 2.2 10*3/uL Normal 1.00-4.8 [facility] Comment on above: Performed By: #### C MP, CBC #### [facility] [address] [place] [address] [place] Lymphocytes/100 WBC (Bld) 31.2 % Normal . [facility] Comment on above: Performed By: #### C MP, CBC #### [address] MCH (RBC) [Entitic mass] 29.3 pg Normal 24.7-34.3 [facility] Comment on above: Performed By: #### C MP, CBC #### [facility] [address] MCV (RBC) [Entitic vol] 87.5 fL Normal 80-100 [facility] Comment on above: Performed By: #### C MP, CBC #### [facility] [address] Mean Corpuscular HGB Conc 33.5 g/dL Normal 32.0-35.0 [facility] Comment on above: Performed By: #### C MP, CBC #### [facility] [address] Monocytes (Bld) [#/Vol] 0.5 10*3/uL Normal 0.0-0.8 [facility] Comment on above: Performed By: #### C MP, CBC #### [address] Monocytes/100 WBC (Bld) 17.66 % Normal 0.00-20.00 [facility] Comment on above: Performed By: #### C MP, CBC #### [place] [address] [place] Monocytes/100 WBC (Bld) 7.4 % Normal . [facility] Comment on above: Performed By: #### C MP, CBC #### [address] Neutrophils (Bld) [#/Vol] 4.2 10*3/uL Normal 1.8-7.7 [facility] Comment on above: Performed By: #### C MP, CBC #### [address] Neutrophils/100 WBC (Bld) 60.4 % Normal . [facility] Comment on above: Performed By: #### C MP, CBC #### [address] NRBC% 0.1 /100{WBC} Normal 0-0.5 [facility] Comment on above: Performed By: #### C MP, CBC #### [address] [place] [address] [place] Platelet mean volume (Bld) [Entitic vol] 7.8 fL Normal 6.3-10.7 [facility] Comment on above: Performed By: #### C MP, CBC #### [facility] [address] Platelets (Bld) [#/Vol] 237 10*3/uL Normal 150-450 [facility] Comment on above: Performed By: #### C MP, CBC #### [facility] [address] RBC (Bld) [#/Vol] 4.53 10*6/uL Normal 3.60-5.00 [facility] Comment on above: Performed By: #### C MP, CBC #### [address] WBC (Bld) [#/Vol] 6.9 10*3/uL Normal 3.8-11.6 [facility] Comment on above: Performed By: #### C MP, CBC #### [address] Comprehensive Metabolic Pane elvis 08-18-2022 Albumin [Mass/Vol] 4.6 g/dL Normal 3.2-5.5 [facility] Comment on above: Performed By: #### C MP, CBC #### [address] Albumin/Globulin [Mass ratio] 1.7 {ratio} Normal [facility] Comment on above: Performed By: #### C MP, CBC #### [facility] [address] [place], [place] [id number] [place] ALP [Catalytic activity/Vol] 50 U/L Normal 32-92 [facility] Comment on above: Performed By: #### C MP, CBC #### [place] [id number] [facility] ALT [Catalytic activity/Vol] 10 U/L Normal 10-60 [facility] Comment on above: Performed By: #### C MP, CBC #### [facility] [address] Anion gap [Moles/Vol] 11.9 mmol/L Normal 6.0-15.0 [facility] Comment on above: Performed By: #### C MP, CBC #### [facility] [address] AST [Catalytic activity/Vol] 19 U/L Normal 10-42 [facility] Comment on above: Performed By: #### C MP, CBC #### [facility] [address] Bilirubin [Mass/Vol] 0.8 mg/dL Normal 0.3-1.2 [facility] Comment on above: Performed By: #### C MP, CBC #### [facility] [address] Calcium [Mass/Vol] 9.4 mg/dL Normal 8.2-10.2 [facility] Comment on above: Performed By: #### C MP, CBC #### [facility] [address] Chloride [Moles/Vol] 103 mmol/L Normal 95-114 [facility] Comment on above: Performed By: #### C MP, CBC #### [facility] [address] CO2 [Moles/Vol] 26.7 mmol/L Normal 22.0-30.0 [facility] Comment on above: Performed By: #### C MP, CBC #### [facility] [address] Creatinine [Mass/Vol] 0.87 mg/dL Normal 0.44-1.03 [facility] Comment on above: Performed By: #### C MP, CBC #### [facility] [address] [place] [address] [place] Creatinine Clr Calc Pharmacy 75.25 [facility] Comment on above: Performed By: #### C MP, CBC #### [facility] [address] [place] [address] [place] Estimated GFR ( Cher > 60 [facility] Comment on above: Result Comment: GFR estimated reference range: According to KDOQI guidelines, <60 ml/min/1.73m2 is sufficient to diagnose a patient with chronic kidney disease. Performed By: #### C MP, CBC #### [address] Estimated GFR (Non- Am > 60 Normal [facility] Comment on above: Performed By: #### C MP, CBC #### [address] Globulin (S) [Mass/Vol] 2.7 g/dL [facility] Comment on above: Performed By: #### C MP, CBC #### [address] Glucose [Mass/Vol] 83 mg/dL Normal 70-100 [facility] Comment on above: Result Comment: [place] Glucose Reference Range is dependent on time and content of last meal. Glucose of more than 200 mg/dL in a nonstressed, ambulatory subject supports the diagnosis of Diabetes Mellitus. ADA recommended reference range Performed By: #### C MP, CBC #### [address] Potassium [Moles/Vol] 3.6 mmol/L Normal 3.5-5.1 [facility] Comment on above: Performed By: #### C MP, CBC #### [address] Protein [Mass/Vol] 7.3 g/dL Normal 6.1-7.9 [facility] Comment on above: Performed By: #### C MP, CBC #### [place] [address] [place] Sodium [Moles/Vol] 138 mmol/L Normal 136-146 [facility] Comment on above: Performed By: #### C MP, CBC #### [address] Urea nitrogen [Mass/Vol] 10 mg/dL Normal 9-23 [facility] Comment on above: Performed By: #### C MP, CBC #### [facility] [address] Creatinine and Glomerular fi ltration rate.predicted panel (S/P/Bld)Ordered By: Roberto Segovia on 08-18-2022 Creatinine [Mass/Vol] 0.87 mg/dL 0.44-1.03 [facility] ECG 12 lead ECGon 08-18-2022 ECG 12 lead ECG [facility] Main [place] [address] [place] [address] Electrocardiograph Report Signed Patient: Bhavna Kovacs MR#: [id number] : 2000 Acct:[id number] Age/Sex: 22 / F ADM Date: 08/18/22 Loc: ER Room: Type: [facility] ER Attending Dr: Ordering Provider: Roberto Segovia DO Date of Service: 08/18/22 ECG/ECG 12 lead ECG: mental status change Copies to: Test Reason : Blood Pressure : 096/067 mmHG Vent. Rate : 077 BPM Atrial Rate : 077 BPM P-R Int : 144 ms QRS Dur : 080 ms QT Int : 354 ms P-R-T Axes : 071 090 070 degrees QTc Int : 400 ms Normal sinus rhythm Rightward axis Confirmed by Roberto SEGOVIA DO ([id number]) on 08/18/2022 2:00:26 PM Referred By: Electronically Signed By:Roberto SEGOVIA DO Transcribed By: MUS Signed By Roberto Segovia DO 0 08/18/22 1400 Normal [facility] Eosinophils Auto (Bld) [#/Vo l]Ordered By: Roebrto Segovia on 08-18-2022 Eosinophils (Bld) [#/Vol] 0.0 10*3/uL 0.0-0.45 [facility] Eosinophils/100 WBC Auto (Bl d)Ordered By: Roberto Segovia on 08-18-2022 Eosinophils/100 WBC (Bld) 0.5 % . [facility] Erythrocyte distribution wid th Auto (RBC) [Ratio]Ordered By: Roberto Segovia on 08-18-2022 Erythrocyte distribution width (RBC) [Ratio] 13.7 % 11.9-15.3 [facility] Estimated glomerular filtrat ion rate (GFR) non- AmericanOrdered By: Roberto Segovia on 08-18-2022 GFR/1.73 sq M.predicted among non-blacks MDRD (S/P/Bld) [Vol rate/Area] > 60 mL/Min [facility] Globulin Calc (S) [Mass/Vol] Ordered By: Roberto Segovia on 08-18-2022 Globulin (S) [Mass/Vol] 2.7 g/dL [facility] Hematocrit Auto (Bld) [Volum e fraction]Ordered By: Roberto Segovia on 08-18-2022 Hematocrit (Bld) [Volume fraction] 39.6 % 34.0-46.4 [facility] Hemoglobin [Mass/volume] in BloodOrdered By: Roberto Segovia on 08-18-2022 Hemoglobin (Bld) [Mass/Vol] 13.3 g/dL 11.8-15.4 [facility] Laboratory - Chemistry and C hemistry - challengeOrdered By: Roberto Segovia on 08-18-2022 Magnesium [Mass/Vol] 2.1 mg/dL 1.6-2.6 [facility] Leukocytes [#/volume] correc manjula for nucleated erythrocytes in Blood by Automated counOrdered By: Roberto Segovia on 08-18-2022 WBC corrected for nucl RBC Auto (Bld) [#/Vol] 6.9 10*3/uL 3.8-11.6 [facility] Levetiracetam (Keppra)on levETIRAcetam [Mass/Vol] 98.1 ug/mL High 10.0-40.0 [facility] Comment on above: Result Comment: Perf ormed at: [facility] - [facility] [address] [id number] Grazing Aide: Sina Hills MD, Phone: [phone] PERFORMED BY: [place] [address] PATHOLOGIST HEAD OF BUSINESS DEVELOPMENT JOSE LUZ M.D. Performed By: #### C MP, CBC #### [address] Lymphocytes Auto (Bld) [#/Vo l]Ordered By: Roberto Segovia on 08-18-2022 Lymphocytes (Bld) [#/Vol] 2.2 10*3/uL 1.00-4.8 [facility] Lymphocytes/100 WBC Auto (Bl d)Ordered By: Roberto Segovia on 08-18-2022 Lymphocytes/100 WBC (Bld) 31.2 % . [facility] MCH Auto (RBC) [Entitic mass ]Ordered By: Roberto Segovia on 08-18-2022 MCH (RBC) [Entitic mass] 29.3 pg 24.7-34.3 [facility] MCHC Auto (RBC) [Mass/Vol]Or dered By: Roberto Segovia on 08-18-2022 MCHC (RBC) [Mass/Vol] 33.5 g/dL 32.0-35.0 [facility] MCV Auto (RBC) [Entitic vol] Ordered By: Roberto Segovia on 08-18-2022 MCV (RBC) [Entitic vol] 87.5 fL 80-100 [facility] Magnesiumon 08-18-2022 Magnesium [Mass/Vol] 2.1 mg/dL Normal 1.6-2.6 [facility] Comment on above: Performed By: #### C MP, CBC #### [facility] [address] Monocyte distribution width [Entitic volume] in Blood by AutomatedOrdered By: Roberto Segovia on 08-18-2022 Monocyte distribution width Auto (Bld) [Entitic vol] 17.66 % 0.00-20.00 [facility] Monocytes Auto (Bld) [#/Vol] Ordered By: Roberto Segovia on 08-18-2022 Monocytes (Bld) [#/Vol] 0.5 10*3/uL 0.0-0.8 [facility] Monocytes/100 WBC Auto (Bld) Ordered By: Roberto Segovia on 08-18-2022 Monocytes/100 WBC (Bld) 7.4 % . [facility] Neutrophils Auto (Bld) [#/Vo l]Ordered By: Roberto Segovia on 08-18-2022 Neutrophils (Bld) [#/Vol] 4.2 10*3/uL 1.8-7.7 [facility] Neutrophils/100 WBC Auto (Bl d)Ordered By: Roberto Segovia on 08-18-2022 Neutrophils/100 WBC (Bld) 60.4 % . [facility] No Panel InformationOrdered By: Roberto Segovia on 08-18-2022 Levetiracetam (Keppra) Level 98.1 ug/mL 10.0-40.0 [facility] Comment on above: Performed at: - [address] [id number] Director: Sina Hills MD, Phone: [phone] Estimated GFR () > 60 mL/Min [facility] Comment on above: GFR estimated refere nce range: According to KDOQI guidelines, <60 ml/min/1.73m2 is sufficient to diagnose a patient with chronic kidney disease. Pharmacy Creatinine Clearance (Chem 75.25 [facility] Nucleated erythrocytes [Pres ence] in Blood by Automated countOrdered By: Roberto Segovia on 08-18-2022 Nucleated RBC Auto Ql (Bld) 0.1 /100{WBC} 0-0.5 [facility] Platelet mean volume Auto (B ld) [Entitic vol]Ordered By: Roberto Segovia on 08-18-2022 Platelet mean volume (Bld) [Entitic vol] 7.8 fL 6.3-10.7 [facility] Platelets Auto (Bld) [#/Vol] Ordered By: Roberto Segovia on 08-18-2022 Platelets (Bld) [#/Vol] 237 10*3/uL 150-450 [facility] Prolactinon 08-18-2022 Prolactin 22.52 ng/mL Normal 3.34-26.72 [facility] Comment on above: Result Comment: PERF ORMED BY: [facility] [address] [place] [address] PATHOLOGIST HEAD OF BUSINESS DEVELOPMENT JOSE LUZ M.D. Performed By: #### C MP, CBC #### [address] Prolactin [Mass/volume] in S alexis or PlasmaOrdered By: Roberto Segovia on 08-18-2022 Prolactin [Mass/Vol] 22.52 ng/mL 3.34-26.72 [facility] Protein [Mass/volume] in Ser um or PlasmaOrdered By: Roberto Segovia on 08-18-2022 Protein [Mass/Vol] 7.3 g/dL 6.1-7.9 [facility] RBC Auto (Bld) [#/Vol]Ordere d By: Roberto Segovia on 08-18-2022 RBC (Bld) [#/Vol] 4.53 10*6/uL 3.60-5.00 [facility] Serum or plasma alanine white otransferase measurement without P-5'-P (enzymatic activiOrdered By: Roberto Segovia on 08-18-2022 ALT No additional P-5'-P [Catalytic activity/Vol] 10 U/L 10-60 [facility] Serum or plasma albumin/glob ulin mass ratioOrdered By: Roberto Segovia on 08-18-2022 Albumin/Globulin [Mass ratio] 1.7 {ratio} [facility] Serum or plasma anion gap de terminationOrdered By: Roberto Segovia on 08-18-2022 Anion gap [Moles/Vol] 11.9 mmol/L 6.0-15.0 [facility] Serum or plasma chloride melonie surement (moles/volume)Ordered By: Roberto Segoiva on 08-18-2022 Chloride [Moles/Vol] 103 mmol/L 95-114 [facility] Serum or plasma glucose randi urement (mass/volume)Ordered By: Roberto Segovia on 08-18-2022 Glucose [Mass/Vol] 83 mg/dL 70-100 [facility] Comment on above: ADA recommended refe rence rangeRandom Glucose Reference Range is dependent on time and content of last meal. Glucose of more than 200 mg/dL in a nonstressed, ambulatory subject supports the diagnosis of Diabetes Mellitus. Serum or plasma potassium me asurement (moles/volume)Ordered By: Roberto Segovia on 08-18-2022 Potassium [Moles/Vol] 3.6 mmol/L 3.5-5.1 [facility] Serum or plasma sodium measu rement (moles/volume)Ordered By: Roberto Segovia on 08-18-2022 Sodium [Moles/Vol] 138 mmol/L 136-146 [facility] Serum or plasma total biliru bin measurement (mass/volume)Ordered By: Roberto Segovia on 08-18-2022 Bilirubin [Mass/Vol] 0.8 mg/dL 0.3-1.2 [facility] Urea nitrogen [Mass/volume] in Serum or PlasmaOrdered By: Roberto Segovia on 08-18-2022 Urea nitrogen [Mass/Vol] 10 mg/dL 9-23 [facility] WBC Auto (Bld) [#/Vol]Ordere d By: Roberto Segovia on 08-18-2022 WBC (Bld) [#/Vol] 6.9 10*3/uL 3.8-11.6 [facility] Amphetamine Screen Ql (U)Ord ered By: Attila Nelson on 07-27-2022 Amphetamines Ql (U) Negative Negative [facility] Automated erythrocytes count in urine sediment (number/area)Ordered By: Attila Nelson on 07-27-2022 RBC Auto (Urine sed) [#/Area] 50-100 [HPF] 0-4 [facility] Automated leukocytes count i n urine sediment (number/area)Ordered By: Attila Nelson on 07-27-2022 WBC Auto (Urine sed) [#/Area] 3-4 [HPF] 0-4 [facility] Barbiturates [Presence] in U rineOrdered By: Attila Nelson on 07-27-2022 Barbiturates Ql (U) Negative Negative [facility] Basophils Auto (Bld) [#/Vol] Ordered By: Attila Nelson on 07-27-2022 Basophils (Bld) [#/Vol] 0.0 10*3/uL 0.0-0.2 [facility] Basophils/100 WBC Auto (Bld) Ordered By: Attila Nelson on 07-27-2022 Basophils/100 WBC (Bld) 0.4 % . [facility] Benzodiazepines [Presence] i n UrineOrdered By: Attila Nelson on 07-27-2022 Benzodiazepines Ql (U) Negative Negative [facility] Bilirubin Test strip Ql (U)O rdered By: Attila Nelson on 07-27-2022 Bilirubin Ql (U) Negative Negative [facility] Body fluid albumin measureme nt (mass/volume)Ordered By: Attila Nelson on 07-27-2022 Albumin (Body fld) [Mass/Vol] 4.5 g/dL 3.2-5.5 [facility] Cannabinoids [Presence] in U rine by Screen methodOrdered By: Attila Nelson on 07-27-2022 Cannabinoids Screen Ql (U) Positive Negative [facility] Comment on above: These are unconfirme d results and should not be used for legal purposes. Drug Cut-Off Concentration: AMPH 1000 ng/mL ELMER 200 ng/mL BRICE 200 ng/mL COCM 300 ng/mL OP 300 ng/mL PCP 25 ng/mL THC 20 ng/mL Color Auto (U)Ordered By: Cezar Nelson on 07-27-2022 Color (U) Yellow Yellow [facility] Complete Blood Count Auto Di ffon 07-27-2022 Basophils (Bld) [#/Vol] 0.0 10*3/uL Normal 0.0-0.2 [facility] Comment on above: Result Comment: PERF ORMED BY: [place] [address] PATHOLOGIST HEAD [employer] BUSINESS DEVELOPMENT JOSE LUZ M.D. Performed By: #### C MP, CBC #### [place] [address] [place] Basophils/100 WBC (Bld) 0.4 % Normal . [facility] Comment on above: Performed By: #### C MP, CBC #### [facility] [address] [place] [address] [place] Eosinophils (Bld) [#/Vol] 0.0 10*3/uL Normal 0.0-0.45 [facility] Comment on above: Performed By: #### C MP, CBC #### [place] [address] [place] Eosinophils/100 WBC (Bld) 0.5 % Normal . [facility] Comment on above: Performed By: #### C MP, CBC #### [facility] [address] [place] [address] Erythrocyte distribution width (RBC) [Ratio] 13.7 % Normal 11.9-15.3 [facility] Comment on above: Performed By: #### C MP, CBC #### [address] Hematocrit (Bld) [Volume fraction] 40.5 % Normal 34.0-46.4 [facility] Comment on above: Performed By: #### C MP, CBC #### [address] Hemoglobin (Bld) [Mass/Vol] 13.7 g/dL Normal 11.8-15.4 [facility] Comment on above: Performed By: #### C MP, CBC #### [address] Lymphocytes (Bld) [#/Vol] 2.9 10*3/uL Normal 1.00-4.8 [facility] Comment on above: Performed By: #### C MP, CBC #### [address] Lymphocytes/100 WBC (Bld) 42.2 % Normal . [facility] Comment on above: Performed By: #### C MP, CBC #### [address] MCH (RBC) [Entitic mass] 29.6 pg Normal 24.7-34.3 [facility] Comment on above: Performed By: #### C MP, CBC #### [address] MCV (RBC) [Entitic vol] 87.6 fL Normal 80-100 [facility] Comment on above: Performed By: #### C MP, CBC #### [address] Mean Corpuscular HGB Conc 33.8 g/dL Normal 32.0-35.0 [facility] Comment on above: Performed By: #### C MP, CBC #### [address] Monocytes (Bld) [#/Vol] 0.4 10*3/uL Normal 0.0-0.8 [facility] Comment on above: Performed By: #### C MP, CBC #### [address] Monocytes/100 WBC (Bld) 17.82 % Normal 0.00-20.00 [facility] Comment on above: Performed By: #### C MP, CBC #### [address] Monocytes/100 WBC (Bld) 5.7 % Normal . [facility] Comment on above: Performed By: #### C MP, CBC #### [address] Neutrophils (Bld) [#/Vol] 3.4 10*3/uL Normal 1.8-7.7 [facility] Comment on above: Performed By: #### C MP, CBC #### [address] Neutrophils/100 WBC (Bld) 51.2 % Normal . [facility] Comment on above: Performed By: #### C MP, CBC #### [address] NRBC% 0.2 /100{WBC} Normal 0-0.5 [facility] Comment on above: Performed By: #### C MP, CBC #### [address] Platelet mean volume (Bld) [Entitic vol] 8.3 fL Normal 6.3-10.7 [facility] Comment on above: Performed By: #### C MP, CBC #### [place] [address] [place] Platelets (Bld) [#/Vol] 278 10*3/uL Normal 150-450 [facility] Comment on above: Performed By: #### C MP, CBC #### [address] RBC (Bld) [#/Vol] 4.62 10*6/uL Normal 3.60-5.00 [facility] Comment on above: Performed By: #### C MP, CBC #### [address] WBC (Bld) [#/Vol] 6.8 10*3/uL Normal 3.8-11.6 [facility] Comment on above: Performed By: #### C MP, CBC #### [address] Comprehensive Metabolic Pane elvis 07-27-2022 Albumin [Mass/Vol] 4.5 g/dL Normal 3.2-5.5 [facility] Comment on above: Performed By: #### C MP, CBC #### [address] Albumin/Globulin [Mass ratio] 1.5 {ratio} Normal [facility] Comment on above: Performed By: #### C MP, CBC #### [address] ALP [Catalytic activity/Vol] 49 U/L Normal 32-92 [facility] Comment on above: Performed By: #### C MP, CBC #### [address] ALT [Catalytic activity/Vol] 9 U/L Low 10-60 [facility] Comment on above: Performed By: #### C MP, CBC #### [address] Anion gap [Moles/Vol] 16.6 mmol/L High 6.0-15.0 [facility] Comment on above: Performed By: #### C MP, CBC #### [address] AST [Catalytic activity/Vol] 20 U/L Normal 10-42 [facility] Comment on above: Performed By: #### C MP, CBC #### [address] Bilirubin [Mass/Vol] 0.5 mg/dL Normal 0.3-1.2 [facility] Comment on above: Performed By: #### C MP, CBC #### [facility] [address] Calcium [Mass/Vol] 9.6 mg/dL Normal 8.2-10.2 [facility] Comment on above: Performed By: #### C MP, CBC #### [facility] [address] Chloride [Moles/Vol] 103 mmol/L Normal 95-114 [facility] Comment on above: Performed By: #### C MP, CBC #### [facility] [address] CO2 [Moles/Vol] 25.2 mmol/L Normal 22.0-30.0 [facility] Comment on above: Performed By: #### C MP, CBC #### [facility] [address] [place] [address] Creatinine [Mass/Vol] 0.78 mg/dL Normal 0.44-1.03 [facility] Comment on above: Performed By: #### C MP, CBC #### [facility] [address] [place] [address] [place] Creatinine Clr Calc Pharmacy 85.01 [facility] Comment on above: Performed By: #### C MP, CBC #### [facility] [address] [place] [address] Estimated GFR ( Cher > 60 [facility] Comment on above: Result Comment: GFR estimated reference range: According to KDOQI guidelines, <60 ml/min/1.73m2 is sufficient to diagnose a patient with chronic kidney disease. Performed By: #### C MP, CBC #### [facility] [address] Estimated GFR (Non- Am > 60 [facility] Comment on above: Performed By: #### C MP, CBC #### [facility] [address] [place] [address] [place] Globulin (S) [Mass/Vol] 3.1 g/dL [facility] Comment on above: Performed By: #### C MP, CBC #### [facility] [address] [place] [address] [place] Glucose [Mass/Vol] 107 mg/dL High 70-100 [facility] Comment on above: Result Comment: [place] Glucose Reference Range is dependent on time and content of last meal. Glucose of more than 200 mg/dL in a nonstressed, ambulatory subject supports the diagnosis of Diabetes Mellitus. ADA recommended reference range Performed By: #### C MP, CBC #### [facility] [address] Potassium [Moles/Vol] 3.8 mmol/L Normal 3.5-5.1 [facility] Comment on above: Performed By: #### C MP, CBC #### [facility] [address] Protein [Mass/Vol] 7.6 g/dL Normal 6.1-7.9 [facility] Comment on above: Performed By: #### C MP, CBC #### [facility] [address] Sodium [Moles/Vol] 141 mmol/L Normal 136-146 [facility] Comment on above: Performed By: #### C MP, CBC #### [facility] [address] [place] [address] [place] Urea nitrogen [Mass/Vol] 5 mg/dL Low 9-23 [facility] Comment on above: Performed By: #### C MP, CBC #### [facility] [address] [place] [address] [place] Creatinine and Glomerular fi ltration rate.predicted panel (S/P/Bld)Ordered By: Attila Nelson on 07-27-2022 Creatinine [Mass/Vol] 0.78 mg/dL 0.44-1.03 [facility] Dipstick and Microscopicon 0 07-27-2022 Appearance (U) Cloudy Critically abnormal Clear [facility] Comment on above: Order Comment: Name Collection Type:: Clean-Voided Midstream Performed By: #### A DDONUAPLUS, URDS, UHCG ####[address] [place] [address] [place] Bacteria,Urine None Seen Normal None Seen [facility] Comment on above: Order Comment: Name Collection Type:: Clean-Voided Midstream Performed By: #### A DDONUAPLUS, URDS, UHCG ####[address] [address] [facility] Bilirubin,Urine Negative Normal Negative [facility] Comment on above: Order Comment: Name Collection Type:: Clean-Voided Midstream Performed By: #### A DDONUAPLUS, URDS, UHCG ####[address] [address] [facility] Color (U) Yellow Normal Yellow [facility] Comment on above: Order Comment: Name Collection Type:: Clean-Voided Midstream Performed By: #### A DDONUAPLUS, URDS, UHCG ####[address] [address] [facility] Glucose Ql (U) Normal Normal Normal [facility] Comment on above: Order Comment: Name Collection Type:: Clean-Voided Midstream Performed By: #### A DDONUAPLUS, URDS, UHCG ####[address] [address] [facility] Hyaline Casts,Urine 0-8 Normal 0-8 [facility] Comment on above: Order Comment: Name Collection Type:: Clean-Voided Midstream Performed By: #### A DDONUAPLUS, URDS, UHCG ####[address] [address] [place] Ketones Ql (U) Negative Normal Negative [facility] Comment on above: Order Comment: Name Collection Type:: Clean-Voided Midstream Performed By: #### A DDONUAPLUS, URDS, UHCG ####[address] [address] [facility] Leukocyte esterase Test strip Ql (U) 1+ High Negative [facility] Comment on above: Order Comment: Name Collection Type:: Clean-Voided Midstream Performed By: #### A DDONUAPLUS, URDS, UHCG ####[address] [address] [place] Nitrite,Urine Negative Normal Negative [facility] Comment on above: Order Comment: Name Collection Type:: Clean-Voided Midstream Performed By: #### A DDONUAPLUS, URDS, UHCG ####[address] [address] [facility] Occult Blood,Urine 3+ High Negative [facility] Comment on above: Order Comment: Name Collection Type:: Clean-Voided Midstream Performed By: #### A DDONUAPLUS, URDS, UHCG ####[address] [address] [facility] pH (U) 7.0 [pH] Normal 5.0-9.0 [facility] Comment on above: Order Comment: Name Collection Type:: Clean-Voided Midstream Performed By: #### A DDONUAPLUS, URDS, UHCG ####[address] [address] [facility] Protein,Urine Trace High Negative [facility] Comment on above: Order Comment: Name Collection Type:: Clean-Voided Midstream Performed By: #### A DDONUAPLUS, URDS, UHCG ####[address] [address] [facility] RBC,Urine 50-100 High 0-4 [facility] Comment on above: Order Comment: Name Collection Type:: Clean-Voided Midstream Performed By: #### A DDONUAPLUS, URDS, UHCG ####[address] [address] [facility] Specificy [place],Urine 1.022 Normal 1.001-1.030 [facility] Comment on above: Order Comment: Name Collection Type:: Clean-Voided Midstream Performed By: #### A DDONUAPLUS, URDS, UHCG ####[address] [address] [facility] Squamous Epithelial Cell,Urine 1-2 Normal 0-2 [facility] Comment on above: Order Comment: Name Collection Type:: Clean-Voided Midstream Performed By: #### A DDONUAPLUS, URDS, UHCG ####[address] [place] [id number] [facility] Urobilinogen,Urine Normal Normal Normal [facility] Comment on above: Order Comment: Name Collection Type:: Clean-Voided Midstream Performed By: #### A DDONUAPLUS, URDS, UHCG ####[id number] [facility] WBC,Urine 3-4 Normal 0-4 [facility] Comment on above: Order Comment: Name Collection Type:: Clean-Voided Midstream Performed By: #### A DDONUAPLUS, URDS, UHCG ####[id number] [facility] Drug Screen,Urineon 07-27-19 Amphetamine Screen,Urine Negative Normal Negative [facility] Comment on above: Performed By: #### A DDONUAPLUS, URDS, CG ####[id number] [facility] Barbiturate Screen,Urine Negative Normal Negative [facility] Comment on above: Performed By: #### A DDONUAPLUS, URDS, UHCG ####[id number] [facility] Benzodiazepines Screen,Urine Negative Normal Negative [facility] Comment on above: Performed By: #### A DDONUAPLUS, URDS, CG ####[id number] [facility] Cannabinoid Screen,Urine Positive High Negative [facility] Comment on above: Result Comment: Thes e are unconfirmed results and should not be used for legal purposes. Drug Cut-Off Concentration: AMPH 1000 ng/mL ELMER 200 ng/mL BRICE 200 ng/mL COCM 300 ng/mL OP 300 ng/mL PCP 25 ng/mL THC 20 ng/mL PERFORMED BY: [facility] [address] [place] [address] PATHOLOGIST HEAD OF BUSINESS DEVELOPMENT JOSE LUZ M.D. Performed By: #### A DDONUAPLUS, URDS, UHCG ####[facility] [place] [address] [facility] Cocaine Screen,Urine Negative Normal Negative [facility] Comment on above: Performed By: #### A DDONUAPLUS, URDS, UHCG ####[facility] [place] [address] [facility] Opiate Screen,Urine Negative Normal Negative [facility] Comment on above: Performed By: #### A DDONUAPLUS, URDS, UHCG ####[facility] [place] [address] [facility] Phencyclidine Screen,Urine Negative Normal Negative [facility] Comment on above: Performed By: #### A DDONUAPLUS, URDS, UHCG ####[facility] [place] [address] [facility] ECG 12 lead ECGon 07-27-2022 ECG 12 lead ECG [facility] Main [place] [address] [place] [address] Electrocardiograph Report Signed Patient: Bhavna Kovacs MR#: [id number] : 2000 Acct:[id number] Age/Sex: 22 / F ADM Date: 07/27/22 Loc: ER Room: Type: [facility] ER Attending Dr: Ordering Provider: Attila Nelson DO Date of Service: 07/27/22 ECG/ECG 12 lead ECG: Seizure Copies to: Test Reason : Blood Pressure : 104/074 mmHG Vent. Rate : 067 BPM Atrial Rate : 067 BPM P-R Int : 148 ms QRS Dur : 080 ms QT Int : 384 ms P-R-T Axes : 078 090 083 degrees QTc Int : 405 ms Normal sinus rhythm with sinus arrhythmia Rightward axis Borderline ECG When compared with ECG of 22-APR-2022 11:32, No significant change was found Confirmed by Attila Nelson DO ([id number]) on 07/27/2022 3:33:40 PM Referred By: Electronically Signed By:Attila Nelson DO Transcribed By: MUS Signed By Attila Nelson DO 07/27 1533 Normal [facility] Eosinophils Auto (Bld) [#/Vo l]Ordered By: Attila Nelson on 07-27-2022 Eosinophils (Bld) [#/Vol] 0.0 10*3/uL 0.0-0.45 [facility] Eosinophils/100 WBC Auto (Bl d)Ordered By: Attila Nelson on 07-27-2022 Eosinophils/100 WBC (Bld) 0.5 % . [facility] Erythrocyte distribution wid th Auto (RBC) [Ratio]Ordered By: Attila Nelson on 07-27-2022 Erythrocyte distribution width (RBC) [Ratio] 13.7 % 11.9-15.3 [facility] Estimated glomerular filtrat ion rate (GFR) non- AmericanOrdered By: Attila Nelson on 07-27-2022 GFR/1.73 sq M.predicted among non-blacks MDRD (S/P/Bld) [Vol rate/Area] > 60 mL/Min [facility] Globulin Calc (S) [Mass/Vol] Ordered By: Attila Nelson on 07-27-2022 Globulin (S) [Mass/Vol] 3.1 g/dL [facility] HCG ( test) [place].rapi d Ql (U)Ordered By: Attila Nelson on 07-27-2022 HCG ( test) Ql (U) Negative [facility] HCG,Urineon 07-27-2022 Beta HCG ( test) Ql (U) Negative Normal [facility] Comment on above: Order Comment: Name Collection Type:: Clean-Voided Midstream Result Comment: PERF ORMED BY: [facility] [address] [place] [address] PATHOLOGIST HEAD [employer] BUSINESS DEVELOPMENT JOSE LUZ M.D. Performed By: #### A [facility] [place] [facility] ####[facility] [place] [address] [facility] Hematocrit Auto (Bld) [Volum e fraction]Ordered By: Attila Nelson on 07-27-2022 Hematocrit (Bld) [Volume fraction] 40.5 % 34.0-46.4 [facility] Hemoglobin [Mass/volume] in BloodOrdered By: Attila Nelson on 07-27-2022 Hemoglobin (Bld) [Mass/Vol] 13.7 g/dL 11.8-15.4 [facility] Ketones Auto test strip (U) [Mass/Vol]Ordered By: Attila Nelson on 07-27-2022 Ketones (U) [Mass/Vol] Negative Negative [facility] Laboratory - Drug toxicology Ordered By: Attila Nelson on 07-27-2022 Opiates Ql (U) Negative Negative [facility] Laboratory - UrinalysisOrder ed By: Attila Nelson on 07-27-2022 Hyaline casts LM Ql (Urine sed) 0-8 [LPF] 0-8 [facility] Leukocytes [#/volume] correc manjula for nucleated erythrocytes in Blood by Automated counOrdered By: Attila Nelson on 07-27-2022 WBC corrected for nucl RBC Auto (Bld) [#/Vol] 6.8 10*3/uL 3.8-11.6 [facility] Lymphocytes Auto (Bld) [#/Vo l]Ordered By: Attila Nelson on 07-27-2022 Lymphocytes (Bld) [#/Vol] 2.9 10*3/uL 1.00-4.8 [facility] Lymphocytes/100 WBC Auto (Bl d)Ordered By: Attila Nelson on 07-27-2022 Lymphocytes/100 WBC (Bld) 42.2 % . [facility] MCH Auto (RBC) [Entitic mass ]Ordered By: Attila Nelson on 07-27-2022 MCH (RBC) [Entitic mass] 29.6 pg 24.7-34.3 [facility] MCHC Auto (RBC) [Mass/Vol]Or dered By: Attila Nelson on 07-27-2022 MCHC (RBC) [Mass/Vol] 33.8 g/dL 32.0-35.0 [facility] MCV Auto (RBC) [Entitic vol] Ordered By: Attila Nelson on 07-27-2022 MCV (RBC) [Entitic vol] 87.6 fL 80-100 [facility] Monocyte distribution width [Entitic volume] in Blood by AutomatedOrdered By: Attila Nelson on 07-27-2022 Monocyte distribution width Auto (Bld) [Entitic vol] 17.82 % 0.00-20.00 [facility] Monocytes Auto (Bld) [#/Vol] Ordered By: Attila Nelson on 07-27-2022 Monocytes (Bld) [#/Vol] 0.4 10*3/uL 0.0-0.8 [facility] Monocytes/100 WBC Auto (Bld) Ordered By: Attila Nelson on 07-27-2022 Monocytes/100 WBC (Bld) 5.7 % . [facility] Neutrophils Auto (Bld) [#/Vo l]Ordered By: Attila Nelson on 07-27-2022 Neutrophils (Bld) [#/Vol] 3.4 10*3/uL 1.8-7.7 [facility] Neutrophils/100 WBC Auto (Bl d)Ordered By: Attila Nelson on 07-27-2022 Neutrophils/100 WBC (Bld) 51.2 % . [facility] Nitrite Test strip Ql (U)Ord ered By: Attila Nelson on 07-27-2022 Nitrite Ql (U) Negative Negative [facility] No Panel InformationOrdered By: Attila Nelson on 07-27-2022 Estimated GFR () > 60 mL/Min [facility] Comment on above: GFR estimated refere nce range: According to KDOQI guidelines, <60 ml/min/1.73m2 is sufficient to diagnose a patient with chronic kidney disease. Pharmacy Creatinine Clearance (Chem 85.01 [facility] Nucleated erythrocytes [Pres ence] in Blood by Automated countOrdered By: Attila Nelson on 07-27-2022 Nucleated RBC Auto Ql (Bld) 0.2 /100{WBC} 0-0.5 [facility] Phencyclidine Screen Ql (U)O rdered By: Attila Nelson on 07-27-2022 Phencyclidine Ql (U) Negative Negative [facility] Platelet mean volume Auto (B ld) [Entitic vol]Ordered By: Attila Nelson on 07-27-2022 Platelet mean volume (Bld) [Entitic vol] 8.3 fL 6.3-10.7 [facility] Platelets Auto (Bld) [#/Vol] Ordered By: Attila Nelson on 07-27-2022 Platelets (Bld) [#/Vol] 278 10*3/uL 150-450 [facility] Prolactinon 07-27-2022 Prolactin 20.59 ng/mL Normal 3.34-26.72 [facility] Comment on above: Result Comment: PERF ORMED BY: [facility] [address] [place] [id number] PATHOLOGIST HEAD OF BUSINESS DEVELOPMENT JOSE LUZ M.D. Performed By: #### C BC, PRL, CMP ####[facility] [id number] [id number] [facility] Prolactin [Mass/volume] in S alexis or PlasmaOrdered By: Attila Nelson on 07-27-2022 Prolactin [Mass/Vol] 20.59 ng/mL 3.34-26.72 [facility] Protein Auto test strip (U) [Mass/Vol]Ordered By: Attila Nelson on 07-27-2022 Protein (U) [Mass/Vol] Trace mg/dL Negative [facility] Protein [Mass/volume] in Ser um or PlasmaOrdered By: Attila Nelson on 07-27-2022 Protein [Mass/Vol] 7.6 g/dL 6.1-7.9 [facility] RBC Auto (Bld) [#/Vol]Ordere d By: Attila Nelson on 07-27-2022 RBC (Bld) [#/Vol] 4.62 10*6/uL 3.60-5.00 [facility] Serum or plasma alanine white otransferase measurement without P-5'-P (enzymatic activiOrdered By: Attila Nelson on 07-27-2022 ALT No additional P-5'-P [Catalytic activity/Vol] 9 U/L 10-60 [facility] Serum or plasma albumin/glob ulin mass ratioOrdered By: Attila Nelson on 07-27-2022 Albumin/Globulin [Mass ratio] 1.5 {ratio} [facility] Serum or plasma alkaline ignacio sphatase measurement (enzymatic activity/volume)Ordered By: Attila Nelson on 07-27-2022 ALP [Catalytic activity/Vol] 49 U/L 32-92 [facility] Serum or plasma anion gap de terminationOrdered By: Attila Nelson on 07-27-2022 Anion gap [Moles/Vol] 16.6 mmol/L 6.0-15.0 [facility] Serum or plasma aspartate am inotransferase measurement (enzymatic activity/volume)Ordered By: Attila Nelson on 07-27-2022 AST [Catalytic activity/Vol] 20 U/L 10-42 [facility] Serum or plasma calcium randi urement (mass/volume)Ordered By: Attila Nelson on 07-27-2022 Calcium [Mass/Vol] 9.6 mg/dL 8.2-10.2 [facility] Serum or plasma chloride melonie surement (moles/volume)Ordered By: Attila Nelson on 07-27-2022 Chloride [Moles/Vol] 103 mmol/L 95-114 [facility] Serum or plasma glucose randi urement (mass/volume)Ordered By: Attila Nelson on 07-27-2022 Glucose [Mass/Vol] 107 mg/dL 70-100 [facility] Comment on above: ADA recommended refe rence rangeRandom Glucose Reference Range is dependent on time and content of last meal. Glucose of more than 200 mg/dL in a nonstressed, ambulatory subject supports the diagnosis of Diabetes Mellitus. Serum or plasma potassium me asurement (moles/volume)Ordered By: Attila Nelson on 07-27-2022 Potassium [Moles/Vol] 3.8 mmol/L 3.5-5.1 [facility] Serum or plasma sodium measu rement (moles/volume)Ordered By: Attila Nelson on 07-27-2022 Sodium [Moles/Vol] 141 mmol/L 136-146 [facility] Serum or plasma total biliru bin measurement (mass/volume)Ordered By: Attila Nelson on 07-27-2022 Bilirubin [Mass/Vol] 0.5 mg/dL 0.3-1.2 [facility] Serum or plasma total carbon dioxide measurement (moles/volume)Ordered By: Attila Nelson on 07-27-2022 CO2 [Moles/Vol] 25.2 mmol/L 22.0-30.0 [facility] Serum or plasma urea nitroge n measurement (mass/volume)Ordered By: Attila Nelson on 07-27-2022 Urea nitrogen [Mass/Vol] 5 mg/dL 9-23 [facility] Specific gravity Auto test s trip (U) [Rel density]Ordered By: Attila Nelson on 07-27-2022 Specific gravity (U) [Rel density] 1.022 1.001-1.030 [facility] Squamous epithelial cells de tection in urine sediment by light microscopyOrdered By: Attila Nelson on 07-27-2022 Epithelial cells.squamous LM Ql (Urine sed) 1-2 [HPF] 0-2 [facility] Urine bacteria detection by automated methodOrdered By: Attila Nelson on 07-27-2022 Bacteria Auto Ql (U) None seen None Seen [facility] Urine clarity by refractomet ry automatedOrdered By: Attila Nelson on 07-27-2022 Clarity Refractometry automated (U) Cloudy Clear [facility] Urine cocaine detectionOrder ed By: Attila Nelson on 07-27-2022 Cocaine Ql (U) Negative Negative [facility] Urine glucose measurement by automated test strip (mass/volume)Ordered By: Attila Nelson on 07-27-2022 Glucose Auto test strip (U) [Mass/Vol] Normal mg/dL Normal [facility] Urine hemoglobin detection b y automated test stripOrdered By: Attila Nelson on 07-27-2022 Hemoglobin Auto test strip Ql (U) 3+ Negative [facility] Urine leukocyte esterase det ection by automated test stripOrdered By: Attila Nelson on 07-27-2022 Leukocyte esterase Auto test strip Ql (U) 1+ Negative [facility] Urobilinogen Auto test strip (U) [Mass/Vol]Ordered By: Attila Nelson on 07-27-2022 Urobilinogen (U) [Mass/Vol] Normal mg/dL Normal [facility] WBC Auto (Bld) [#/Vol]Ordere d By: Attila Nelson on 07-27-2022 WBC (Bld) [#/Vol] 6.8 10*3/uL 3.8-11.6 [facility] pH Auto test strip (U)Ordere d By: Attila Nelson on 07-27-2022 pH (U) 7.0 [pH] 5.0-9.0 [facility] CBC AUTO DIFFon 06-12-2022 BASO # 0.0 103/ul Normal 0.0-0.1 [facility] Comment on above: Performed By: #### C MP, HSTROPN #### [facility] [address] [place] [address] Dr. Jovanni Maya Basophils/100 WBC (Bld) 0.2 % Normal 0.2-2.0 [facility] Comment on above: Performed By: #### C MP, HSTROPN #### [facility] [address] [place] [address] Dr. Jovanni Maya EO # 0.0 103/ul Normal 0.0-0.7 [facility] Comment on above: Performed By: #### C MP, HSTROPN #### [facility] [address] [place] [address] Dr. Jovanni Maya Eosinophils/100 WBC (Bld) 0.1 % Critically low 0.9-7.0 [facility] Comment on above: Performed By: #### C MP, HSTROPN #### [facility] [address] [place] [address] Dr. Jovanni Maya Erythrocyte distribution width (RBC) [Ratio] 12.7 % Normal 11.0-15.0 [facility] Comment on above: Performed By: #### C MP, HSTROPN #### [facility] [address] [place] [address] Dr. Jovanni Maya Hematocrit (Bld) [Volume fraction] 38.2 % Normal 36.0-48.0 [facility] Comment on above: Performed By: #### C MP, HSTROPN #### [facility] [address] [place] [address] Dr. Jovanni Maya Hemoglobin (Bld) [Mass/Vol] 13.4 g/dL Normal 12.0-16.0 [facility] Comment on above: Performed By: #### C MP, HSTROPN #### [facility] [address] [place] [address] Dr. Jovanni Maya IG # 0.04 10e3/ul Critically high 0.00-0.03 [facility] Comment on above: Performed By: #### C MP, HSTROPN #### [facility] [address] [place] [address] Dr. Jovanni Maya IG % 0.3 % Normal 0.0-0.5 [facility] Comment on above: Performed By: #### C MP, HSTROPN #### [facility] [address] [place] [address] Dr. Jovanni Maya LYMPH # 1.6 103/ul Normal 1.2-3.8 [facility] Comment on above: Performed By: #### C MP, HSTROPN #### [facility] [address] [place] [address] Dr. Jovanni Maya Lymphocytes/100 WBC (Bld) 12.9 % Critically low 20.5-60.0 [facility] Comment on above: Performed By: #### C MP, HSTROPN #### [facility] [address] [place] [address] Dr. Jovanni Maya MANUAL DIFF REQ NO Normal [facility] Comment on above: Performed By: #### C MP, HSTROPN #### [facility] [address] [place] [address] Dr. Jovanni Maya MCH (RBC) [Entitic mass] 29.6 pg Normal 26.7-34.0 [facility] Comment on above: Performed By: #### C MP, HSTROPN #### [facility] [address] [place] [address] Dr. Jovanni Maya MCHC (RBC) [Mass/Vol] 35.1 g/dL Normal 29.9-35.2 [facility] Comment on above: Performed By: #### C MP, HSTROPN #### [facility] [address] [place] [address] Dr. Jovanni Maya MCV (RBC) [Entitic vol] 84.5 fL Normal 81.0-99.0 [facility] Comment on above: Performed By: #### C MP, HSTROPN #### [facility] [address] [place] [address] Dr. Jovanni Maya MONO # 0.6 103/ul Normal 0.3-0.8 [facility] [facility] Comment on above: Performed By: #### C MP, HSTROPN #### [facility] [address] [place] [address] Dr. Jovanni Maya Monocytes/100 WBC (Bld) 4.9 % Normal 1.7-12.0 [facility] Comment on above: Performed By: #### C MP, HSTROPN #### [facility] [address] [place] [address] Dr. Jovanni Maya NEUT # 10.4 103/ul Critically high 1.4-6.5 [facility] Comment on above: Performed By: #### C MP, HSTROPN #### [facility] [address] [place] [address] Dr. Jovanni Maya Neutrophils/100 WBC (Bld) 81.6 % Critically high 43.0-75.0 [facility] Comment on above: Performed By: #### C MP, HSTROPN #### [facility] [address] [place] [address] Dr. Jovanni Maya Platelet mean volume (Bld) [Entitic vol] 9.3 fL Critically low 9.5-13.5 [facility] Comment on above: Performed By: #### C MP, HSTROPN #### [facility] [address] [place] [address] Dr. Jovanni Maya PLT 231 103/ul Normal 150-450 [facility] Comment on above: Performed By: #### C MP, HSTROPN #### [facility] [address] [place] [address] Dr. Jovanni Maya RBC 4.52 106/ul Normal 4.20-5.40 [facility] Comment on above: Performed By: #### C MP, HSTROPN #### [facility] [address] [address] [address] Jovanni Maya WBC 12.7 103/ul Critically high 4.0-11.0 [facility] Comment on above: Performed By: #### C DANIEL HSTROPN #### [facility] [address] [address] [address] HEAD WO CONon 06-12-2022 CT HEAD WO CON NONCONTRAST CT SCAN OF THE HEAD CT HEAD WO CON HISTORY: Headache blurred vision history of epilepsy TECHNIQUE: Multiple axial images are taken from the level the vertex down to the base of the skull without the use of IV contrast. Images were then reconstructed in the sagittal and coronal planes. This exam was performed according to our departmental dose-optimization program which includes use of Automated Exposure Control, adjustment of the mA and/or kV according to patient size and/or use of iterative reconstruction technique. COMPARISON: 09/15/2020 FINDINGS: Brain Parenchyma: No intracranial mass. No intracranial hemorrhage. Dominguez-white matter within expected limits of normal for patient's age. Posterior fossa: Normal. Midline shift: None Extra-axial fluid collection: None Ventricles: Normal. Mastoid air cells: Normal. Sinuses: Normal. Cranium: No depressed skull fracture. Soft tissues: Normal. Orbits: Normal. IMPRESSION: 1. No noncontrast CT evidence for acute intracranial pathology. 2. If symptoms continue and if clinically indicated, MRI may help better delineate. Electronically authenticated by: LO TUTTLE Date: 2022-06-12 21:00 Normal [facility] DRUG SCREEN RAPID (URINE)on 06-12-2022 AMP Negative Normal NEGATIVE [facility] Comment on above: Performed By: #### P REG, ACETON #### [facility] [address] [address] [address] Jovanni Maya BAR Negative Normal NEGATIVE [facility] Comment on above: Performed By: #### P REG, ACETON #### [facility] [address] [address] [address] Jovanni Maya BUP Negative Normal NEGATIVE [facility] Comment on above: Performed By: #### P REG, ACETON #### [facility] [address] [place] [address] Dr. Jovanni Maya BZO Negative Normal NEGATIVE [facility] Comment on above: Performed By: #### P REG, ACETON #### [facility] [address] [place] [address] Dr. Jovanni Maya DARIEN Negative Normal NEGATIVE [facility] Comment on above: Performed By: #### P REG, ACETON #### [facility] [address] [place] [address] Dr. Jovanni Maya CUT-OFFS SEE BELOW Normal [facility] Comment on above: Result Comment: AMP (Amphetamine): 500ng/mL, BAR (Barbituates): 200 ng/mL, BZO (Benzodiazepines): 150 ng/mL, BUP (Buprenorphine): 10 ng/mL, DARIEN (Cocaine): 150 ng/mL, mAMP (Methamphetamine): 500 ng/mL, MTD (Methadone): 200 ng/mL, OPI (Opiates): 100 ng/mL, OXY (Oxycodone): 100 ng/mL, PCP (Phencyclidine): 25 ng/mL, PPX (Propoxyphene): 300 ng/mL, THC (Cannabinoids): 50 ng/mL, TCA (Trycyclic Antidepressants): 300 ng/mL Performed By: #### P REG, ACETON #### [facility] [address] [place] [address] Dr. Jovanni Maya DRUG CUT HEADER DRUG CLASS TEST SYST EM CUT-OFF CONCENTRATIONS ARE FOLLOWS: Normal [facility] Comment on above: Performed By: #### P REG, ACETON #### [facility] [address] [place] [address] Dr. Jovanni Maya mAMP Negative Normal NEGATIVE [facility] Comment on above: Performed By: #### P REG, ACETON #### [facility] [address] [place] [address] Dr. Jovanni Maya MTD Negative Normal NEGATIVE [facility] Comment on above: Performed By: #### P REG, ACETON #### [facility] [address] [place] [address] Dr. Jovanni Maya OPI Positive Abnormal NEGATIVE [facility] Comment on above: Performed By: #### P REG, ACETON #### [facility] [address] [place] [address] Dr. Jovanni Maya OXY Negative Normal NEGATIVE [facility] Comment on above: Performed By: #### P REG, ACETON #### [facility] [address] [place] [address] Dr. Jovanni Maya PCP Negative Normal NEGATIVE [facility] Comment on above: Performed By: #### P REG, ACETON #### [facility] [address] [place] [address] Dr. Jovanni Maya PPX Negative Normal NEGATIVE [facility] Comment on above: Performed By: #### P REG, ACETON #### [facility] [address] [place] [address] Dr. Jovanni Maya TCA Negative Normal NEGATIVE [facility] Comment on above: Performed By: #### P REG, ACETON #### [facility] [address] [place] [address] Dr. Jovanni Maya THC Positive Abnormal NEGATIVE [facility] Comment on above: Performed By: #### P REG, ACETON #### [facility] [address] [place] [address] Dr. Jovanni Maya ER URINE PROFILEon 2 Bilirubin Ql (U) Negative Normal NEGATIVE [facility] Comment on above: Performed By: #### C MP, HSTROPN #### [facility] [address] [place] [address] Dr. Jovanni Maya Clarity (U) CLEAR Normal CLEAR [facility] Comment on above: Performed By: #### C MP, HSTROPN #### [facility] [address] [place] [address] Dr. Jovanni Maya Color (U) LT. YELLOW Normal YELLOW [facility] Comment on above: Performed By: #### C MP, HSTROPN #### [facility] [address] [place] [address] Dr. Jovanni Maya ERUAHD A micrscopic examina tion will be performed if indicated. Normal [facility] Comment on above: Performed By: #### C MP, HSTROPN #### [facility] [address] [address] [address] Jovanni Maya Glucose Ql (U) Negative Normal NEGATIVE [facility] Comment on above: Performed By: #### C MP, HSTROPN #### [facility] [address] [address] [address] Jovanni Maya Hemoglobin Ql (U) Negative Normal NEGATIVE [facility] Comment on above: Performed By: #### C MP, HSTROPN #### [facility] [address] [place] [address] Dr. Jovanni Maya Ketones Ql (U) Negative Normal NEGATIVE [facility] Comment on above: Performed By: #### C MP, HSTROPN #### [facility] [address] [place] [address] Dr. Jovanni Maya LEUKOCYTES Negative Normal NEGATIVE [facility] Comment on above: Performed By: #### C MP, HSTROPN #### [facility] [address] [place] [address] Dr. Jovanni Maya Nitrite Ql (U) Negative Normal NEGATIVE [facility] Comment on above: Performed By: #### C DANIEL, HSTROPN #### [facility] [address] [place] [address] Dr. Jovanni Maya pH (U) 8.5 [pH] Normal 5-9 [facility] Comment on above: Performed By: #### C MP, HSTROPN #### [facility] [address] [place] [address] Dr. Jovanni Maya SPEC GRAVITY 1.015 Normal 1.005-<=1.0 25 [facility] Comment on above: Performed By: #### C MP, HSTROPN #### [facility] [address] [place] [address] Dr. Jovanni Maya UA PROTEIN Negative Normal NEGATIVE/ TRACE [facility] Comment on above: Performed By: #### C MP, HSTROPN #### [facility] [address] [place] [address] Dr. Jovanni Maya UR MICRO IND NOT INDICATED Normal [facility] Comment on above: Performed By: #### C DANIEL, HSTROPN #### [facility] [address] [place] [address] Dr. Jovanni Maya Urobilinogen Qn (U) 0.2 {Carlos A'U}/dL Normal 0.2 - 1. 0 [facility] Comment on above: Performed By: #### C DANIEL, HSTROPN #### [facility] [address] [address] [address] Jovanni Maya URon 06-12-2022 , QUAL Negative Normal NEGATIVE [facility] Comment on above: Performed By: #### C DANIEL, HSTROPN #### [facility] [address] [place] [address] Dr. Jovanni Maya PROF 14(COMP METB)on 022 Albumin [Mass/Vol] 4.1 g/dL Normal 3.4-5.0 [facility] Comment on above: Performed By: #### C DANIEL, HSTROPN #### [facility] [address] [place] [address] Dr. Jovanni Maya Albumin/Globulin [Mass ratio] 1.2 {ratio} Normal [facility] Comment on above: Performed By: #### C DANIEL, HSTROPN #### [facility] [address] [place] [address] Dr. Jovanni Maya ALP [Catalytic activity/Vol] 53 U/L Normal 46-116 [facility] Comment on above: Performed By: #### C DANIEL, HSTROPN #### [facility] [address] [place] [address] Dr. Jovanni Maya ALT [Catalytic activity/Vol] 11 U/L Critically low 14-59 [facility] Comment on above: Performed By: #### C DANIEL, HSTROPN #### [facility] [address] [place] [address] Dr. Jovanni Maya Anion gap [Moles/Vol] 9.5 mmol/L Normal [facility] Comment on above: Performed By: #### C MP, HSTROPN #### [facility] [address] [address] [address] Jovanni Maya AST [Catalytic activity/Vol] 21 U/L Normal 15-37 [facility] Comment on above: Performed By: #### C MP, HSTROPN #### [facility] [address] [address] [address] Jovanni Maya Bilirubin [Mass/Vol] 0.3 mg/dL Normal 0.2-1.0 [facility] Comment on above: Performed By: #### C MP, HSTROPN #### [facility] [address] [address] [address] Jovanni Maya Calcium [Mass/Vol] 8.7 mg/dL Normal 8.5-10.1 [facility] Comment on above: Performed By: #### C MP, HSTROPN #### [facility] [address] [place] [address] Dr. Jovanni Maya Chloride [Moles/Vol] 104 mmol/L Normal 98-107 [facility] Comment on above: Performed By: #### C MP, HSTROPN #### [facility] [address] [address] [address] Jovanni Maya CO2 [Moles/Vol] 28.0 mmol/L Normal 21.0-32.0 [facility] Comment on above: Performed By: #### C MP, HSTROPN #### [facility] [address] [address] [address] Jovanni Maya Creatinine [Mass/Vol] 0.79 mg/dL Normal 0.55-1.02 [facility] Comment on above: Performed By: #### C MP, HSTROPN #### [facility] [address] [address] [address] Jovanni Maya EGFR-AF PAKISTANI >60 Normal >=60 [facility] Comment on above: Performed By: #### C MP, HSTROPN #### [facility] [address] [address] [address] Jovanni Maya EGFR-NON AF PAKISTANI >60 Normal >=60 [facility] Comment on above: Performed By: #### C MP, HSTROPN #### [facility] [address] [address] [address] Jovanni Maya Globulin (S) [Mass/Vol] 3.5 g/dL Normal [facility] Comment on above: Performed By: #### C MP, HSTROPN #### [facility] [address] [address] [address] Jovanni Maya Glucose [Mass/Vol] 102 mg/dL Normal 74-106 [facility] Comment on above: Performed By: #### C MP, HSTROPN #### [facility] [address] [address] [address] Jovanni Maya Potassium [Moles/Vol] 3.5 mmol/L Normal 3.5-5.1 [facility] Comment on above: Performed By: #### C MP, HSTROPN #### [facility] [address] [place] [address] Dr. Jovanni Maya Protein [Mass/Vol] 7.6 g/dL Normal 6.4-8.2 [facility] Comment on above: Performed By: #### C MP, HSTROPN #### [facility] [address] [place] [address] Dr. Jovanni Maya Sodium [Moles/Vol] 138 mmol/L Normal 136-145 [facility] Comment on above: Performed By: #### C MP, HSTROPN #### [facility] [address] [address] [address] Jovanni Maya Urea nitrogen [Mass/Vol] 9.0 mg/dL Normal 7.0-18.0 [facility] Comment on above: Performed By: #### C MP, HSTROPN #### [facility] [address] [place] [address] Dr. Jovanni Maya Urea nitrogen/Creatinine [Mass ratio] 11.4 mg/mg Normal [facility] Comment on above: Performed By: #### C MP, HSTROPN #### [facility] [address] [place] [address] Dr. Jovanni Maya CBC AUTO DIFFon 05-24-2022 BASO # 0.0 103/ul Normal 0.0-0.1 [facility] Comment on above: Performed By: #### C MP, HSTROPN #### [facility] [address] [place] [address] Dr. Jovanni Maya Basophils/100 WBC (Bld) 0.1 % Critically low 0.2-2.0 [facility] Comment on above: Performed By: #### C MP, HSTROPN #### [facility] [address] [place] [address] Dr. Jovanni Maya EO # 0.0 103/ul Normal 0.0-0.7 [facility] Comment on above: Performed By: #### C MP, HSTROPN #### [facility] [address] [place] [address] Dr. Jovanni Maya Eosinophils/100 WBC (Bld) 0.1 % Critically low 0.9-7.0 [facility] Comment on above: Performed By: #### C MP, HSTROPN #### [facility] [address] [place] [address] Dr. Jovanni Maya Erythrocyte distribution width (RBC) [Ratio] 13.1 % Normal 11.0-15.0 [facility] Comment on above: Performed By: #### C MP, HSTROPN #### [facility] [address] [place] [address] Dr. Jovanni Maya Hematocrit (Bld) [Volume fraction] 37.2 % Normal 36.0-48.0 [facility] Comment on above: Performed By: #### C MP, HSTROPN #### [facility] [address] [place] [address] Dr. Jovanni Maya Hemoglobin (Bld) [Mass/Vol] 13.0 g/dL Normal 12.0-16.0 [facility] Comment on above: Performed By: #### C MP, HSTROPN #### [facility] [address] [place] [address] Dr. Jovanni Maya IG # 0.02 10e3/ul Normal 0.00-0.03 [facility] Comment on above: Performed By: #### C MP, HSTROPN #### [facility] [address] [place] [address] Dr. Jovanni Maya IG % 0.3 % Normal 0.0-0.5 [facility] Comment on above: Performed By: #### C MP, HSTROPN #### [facility] [address] [place] [address] Dr. Jovanni Maya LYMPH # 1.4 103/ul Normal 1.2-3.8 [facility] Comment on above: Performed By: #### C MP, HSTROPN #### [facility] [address] [place] [address] Dr. Jovanni Maya Lymphocytes/100 WBC (Bld) 20.7 % Normal 20.5-60.0 [facility] Comment on above: Performed By: #### C DANIEL, HSTROPN #### [facility] [address] [place] [address] Dr. Jovanni Maya MANUAL DIFF REQ NO Normal [facility] Comment on above: Performed By: #### C MP, HSTROPN #### [facility] [address] [place] [address] Dr. Jovanni Maya MCH (RBC) [Entitic mass] 29.5 pg Normal 26.7-34.0 [facility] Comment on above: Performed By: #### C MP, HSTROPN #### [facility] [address] [place] [address] Dr. Jovanni Maya MCHC (RBC) [Mass/Vol] 34.9 g/dL Normal 29.9-35.2 [facility] Comment on above: Performed By: #### C MP, HSTROPN #### [facility] [address] [place] [address] Dr. Jovanni Maya MCV (RBC) [Entitic vol] 84.4 fL Normal 81.0-99.0 [facility] Comment on above: Performed By: #### C MP, HSTROPN #### [facility] [address] [place] [address] Dr. Jovanni Maya MONO # 0.5 103/ul Normal 0.3-0.8 [facility] Comment on above: Performed By: #### C MP, HSTROPN #### [facility] [address] [place] [address] Dr. Jovanni Maya Monocytes/100 WBC (Bld) 7.8 % Normal 1.7-12.0 [facility] Comment on above: Performed By: #### C MP, HSTROPN #### [facility] [address] [place] [address] Dr. Jovanni Maya NEUT # 4.8 103/ul Normal 1.4-6.5 [facility] Comment on above: Performed By: #### C MP, HSTROPN #### [facility] [address] [place] [address] Dr. Jovanni Maya Neutrophils/100 WBC (Bld) 71.0 % Normal 43.0-75.0 [facility] Comment on above: Performed By: #### C MP, HSTROPN #### [facility] [address] [place] [address] Dr. Jovanni Maya Platelet mean volume (Bld) [Entitic vol] 9.5 fL Normal 9.5-13.5 [facility] Comment on above: Performed By: #### C MP, HSTROPN #### [facility] [address] [place] [address] Dr. Jovanni Maya PLT 228 103/ul Normal 150-450 [facility] Comment on above: Performed By: #### C MP, HSTROPN #### [facility] [address] [place] [address] Dr. Jovanni Maya RBC 4.41 106/ul Normal 4.20-5.40 [facility] Comment on above: Performed By: #### C MP, HSTROPN #### [facility] [address] [place] [address] Dr. Jovanni Maya WBC 6.8 103/ul Normal 4.0-11.0 [facility] Comment on above: Performed By: #### C MP, HSTROPN #### [facility] [address] [place] [address] Dr. Jovanni Maya PROF 14(COMP METB)on 022 Albumin [Mass/Vol] 4.0 g/dL Normal 3.4-5.0 [facility] Comment on above: Performed By: #### C MP, HSTROPN #### [facility] [address] [place] [address] Dr. Jovanni Maya Albumin/Globulin [Mass ratio] 9.3 {ratio} Normal [facility] Comment on above: Performed By: #### C MP, HSTROPN #### [facility] [address] [place] [address] Dr. Jovanni Maya ALP [Catalytic activity/Vol] 56 U/L Normal 46-116 [facility] Comment on above: Performed By: #### C MP, HSTROPN #### [facility] [address] [place] [address] Dr. Jovanni Maya ALT [Catalytic activity/Vol] 8 U/L Critically low 14-59 [facility] Comment on above: Performed By: #### C MP, HSTROPN #### [facility] [address] [place] [address] Dr. Jovanni Maya Anion gap [Moles/Vol] 9.3 mmol/L Normal [facility] Comment on above: Performed By: #### C MP, HSTROPN #### [facility] [address] [place] [address] Dr. Jovanni Maya AST [Catalytic activity/Vol] 12 U/L Critically low 15-37 [facility] Comment on above: Performed By: #### C MP, HSTROPN #### [facility] [address] [place] [address] Dr. Jovanni Maya Bilirubin [Mass/Vol] 0.3 mg/dL Normal 0.2-1.0 [facility] Comment on above: Performed By: #### C MP, HSTROPN #### [facility] [address] [place] [address] Dr. Jovanni Maya Calcium [Mass/Vol] 8.6 mg/dL Normal 8.5-10.1 [facility] Comment on above: Performed By: #### C DANIEL, HSTROPN #### [facility] [address] [address] [address] Jovanni Maya Chloride [Moles/Vol] 104 mmol/L Normal 98-107 [facility] Comment on above: Performed By: #### C DANIEL, HSTROPN #### [facility] [address] [address] [address] Jovanni Maya CO2 [Moles/Vol] 28.1 mmol/L Normal 21.0-32.0 [facility] Comment on above: Performed By: #### C DANIEL, HSTROPN #### [facility] [address] [place] [address] Dr. Jovanni Maya Creatinine [Mass/Vol] 0.71 mg/dL Normal 0.55-1.02 [facility] Comment on above: Performed By: #### C DANIEL, HSTROPN #### [facility] [address] [place] [address] Dr. Jovanni Maya EGFR-AF PAKISTANI >60 Normal >=60 [facility] Comment on above: Performed By: #### C DANIEL, HSTROPN #### [facility] [address] [place] [address] Dr. Jovanni Maya EGFR-NON AF PAKISTANI >60 Normal >=60 [facility] Comment on above: Performed By: #### C DANIEL, HSTROPN #### [facility] [address] [place] [address] Dr. Jovanni Maya Globulin (S) [Mass/Vol] 3.4 g/dL Normal [facility] Comment on above: Performed By: #### C DANIEL, HSTROPN #### [facility] [address] [place] [address] Dr. Jovanni Maya Glucose [Mass/Vol] 109 mg/dL Critically high 74-106 [facility] Comment on above: Performed By: #### C DANIEL, HSTROPN #### [facility] [address] [address] [address] Jovanni Maya Potassium [Moles/Vol] 3.4 mmol/L Critically low 3.5-5.1 [facility] Comment on above: Performed By: #### C MP, HSTROPN #### [facility] [address] [address] [address] Jovanni Maya Protein [Mass/Vol] 7.4 g/dL Normal 6.4-8.2 [facility] Comment on above: Performed By: #### C MP, HSTROPN #### [facility] [address] [address] [address] Jovanni Maya Sodium [Moles/Vol] 138 mmol/L Normal 136-145 [facility] Comment on above: Performed By: #### C MP, HSTROPN #### [facility] [address] [place] [address] Dr. Jovanni Maya Urea nitrogen [Mass/Vol] 12.0 mg/dL Normal 7.0-18.0 [facility] Comment on above: Performed By: #### C MP, HSTROPN #### [facility] [address] [address] [address] Jovanni Maya Urea nitrogen/Creatinine [Mass ratio] 16.9 mg/mg Normal [facility] Comment on above: Performed By: #### C MP, HSTROPN #### [facility] [address] [address] [address] Jovanni Maya Basophils Auto (Bld) [#/Vol] Ordered By: Aman Cortes on 05-18-2022 Basophils (Bld) [#/Vol] 0.0 10*3/uL 0.0-0.2 [facility] Basophils/100 WBC Auto (Bld) Ordered By: Aman Cortes on 05-18-2022 Basophils/100 WBC (Bld) 0.3 % . [facility] Creatinine and Glomerular fi ltration rate.predicted panel (S/P/Bld)Ordered By: Aman Cortes on 05-18-2022 Creatinine [Mass/Vol] 0.74 mg/dL 0.44-1.03 [facility] Eosinophils Auto (Bld) [#/Vo l]Ordered By: Aman Cortes on 05-18-2022 Eosinophils (Bld) [#/Vol] 0.1 10*3/uL 0.0-0.45 [facility] Eosinophils/100 WBC Auto (Bl d)Ordered By: Aman Cortes on 05-18-2022 Eosinophils/100 WBC (Bld) 0.9 % . [facility] Erythrocyte distribution wid th Auto (RBC) [Ratio]Ordered By: Aman Cortes on 05-18-2022 Erythrocyte distribution width (RBC) [Ratio] 14.5 % 11.9-15.3 [facility] Estimated glomerular filtrat ion rate (GFR) non- AmericanOrdered By: Aman Cortes on 05-18-2022 GFR/1.73 sq M.predicted among non-blacks MDRD (S/P/Bld) [Vol rate/Area] > 60 mL/Min [facility] Hematocrit Auto (Bld) [Volum e fraction]Ordered By: Aman Cortes on 05-18-2022 Hematocrit (Bld) [Volume fraction] 40.4 % 34.0-46.4 [facility] Hemoglobin [Mass/volume] in BloodOrdered By: Aman Cortes on 05-18-2022 Hemoglobin (Bld) [Mass/Vol] 13.0 g/dL 11.8-15.4 [facility] Laboratory - Hematology and Cell countsOrdered By: Aman Cortes on 05-18-2022 Nucleated RBC/100 WBC (Bld) [Ratio] 0.1 % 0-0.5 [facility] Leukocytes [#/volume] in Blo od by Automated countOrdered By: Aman Cortes on 05-18-2022 WBC (Bld) [#/Vol] 5.6 10*3/uL 4.5-11.0 [facility] Lymphocytes Auto (Bld) [#/Vo l]Ordered By: Aman Cortes on 05-18-2022 Lymphocytes (Bld) [#/Vol] 2.0 10*3/uL 1.00-4.8 [facility] Lymphocytes/100 WBC Auto (Bl d)Ordered By: Aman Cortes on 05-18-2022 Lymphocytes/100 WBC (Bld) 36.8 % . [facility] MCH Auto (RBC) [Entitic mass ]Ordered By: Aman Cortes on 05-18-2022 MCH (RBC) [Entitic mass] 28.6 pg 24.7-34.3 [facility] MCHC Auto (RBC) [Mass/Vol]Or dered By: Aman Cortes on 05-18-2022 MCHC (RBC) [Mass/Vol] 32.3 g/dL 32.0-35.0 [facility] MCV Auto (RBC) [Entitic vol] Ordered By: Aman Cortes on 05-18-2022 MCV (RBC) [Entitic vol] 88.4 fL 80-100 [facility] Monocytes Auto (Bld) [#/Vol] Ordered By: Aman Cortes on 05-18-2022 Monocytes (Bld) [#/Vol] 0.4 10*3/uL 0.0-0.8 [facility] Monocytes/100 WBC Auto (Bld) Ordered By: Aman Cortes on 05-18-2022 Monocytes/100 WBC (Bld) 7.3 % . [facility] Neutrophils Auto (Bld) [#/Vo l]Ordered By: Aman Cortes on 05-18-2022 Neutrophils (Bld) [#/Vol] 3.0 10*3/uL 1.8-7.7 [facility] Neutrophils/100 WBC Auto (Bl d)Ordered By: Aman Cortes on 05-18-2022 Neutrophils/100 WBC (Bld) 54.7 % . [facility] No Panel InformationOrdered By: Aman Cortes on 05-18-2022 Estimated GFR () > 60 mL/Min [facility] Comment on above: GFR estimated refere nce range: According to KDOQI guidelines, <60 ml/min/1.73m2 is sufficient to diagnose a patient with chronic kidney disease. Pharmacy Creatinine Clearance (Chem 92.05 [facility] Platelet mean volume Auto (B ld) [Entitic vol]Ordered By: Aman Cortes on 05-18-2022 Platelet mean volume (Bld) [Entitic vol] 8.1 fL 6.3-10.7 [facility] Platelets Auto (Bld) [#/Vol] Ordered By: Aman Cortes on 05-18-2022 Platelets (Bld) [#/Vol] 268 10*3/uL 150-450 [facility] Prolactin [Mass/volume] in S alexis or PlasmaOrdered By: Aman Cortes on 05-18-2022 Prolactin [Mass/Vol] 8.64 ng/mL 3.34-26.72 [facility] RBC Auto (Bld) [#/Vol]Ordere d By: Aman Cortes on 05-18-2022 RBC (Bld) [#/Vol] 4.57 10*6/uL 3.60-5.00 [facility] Serum or plasma anion gap de terminationOrdered By: Aman Cortes on 05-18-2022 Anion gap [Moles/Vol] 10.1 mmol/L 6.0-15.0 [facility] Serum or plasma calcium randi urement (mass/volume)Ordered By: Aman Cortes on 05-18-2022 Calcium [Mass/Vol] 9.0 mg/dL 8.2-10.2 [facility] Serum or plasma chloride melonie surement (moles/volume)Ordered By: Aman Cortes on 05-18-2022 Chloride [Moles/Vol] 103 mmol/L 95-114 [facility] Serum or plasma glucose randi urement (mass/volume)Ordered By: Aman Cortes on 05-18-2022 Glucose [Mass/Vol] 110 mg/dL 70-100 [facility] Comment on above: ADA recommended refe rence rangeRandom Glucose Reference Range is dependent on time and content of last meal. Glucose of more than 200 mg/dL in a nonstressed, ambulatory subject supports the diagnosis of Diabetes Mellitus. Serum or plasma potassium me asurement (moles/volume)Ordered By: Aman Cortes on 05-18-2022 Potassium [Moles/Vol] 3.8 mmol/L 3.5-5.1 [facility] Serum or plasma sodium measu rement (moles/volume)Ordered By: Aman Cortes on 05-18-2022 Sodium [Moles/Vol] 138 mmol/L 136-146 [facility] Serum or plasma total carbon dioxide measurement (moles/volume)Ordered By: Aman Sebastian on 05-18-2022 CO2 [Moles/Vol] 28.7 mmol/L 22.0-30.0 [facility] Serum or plasma urea nitroge n measurement (mass/volume)Ordered By: Aman Cortes on 05-18-2022 Urea nitrogen [Mass/Vol] 10 mg/dL 03-19 [facility] CBC AUTO DIFFon 05-15-2022 BASO # 0.0 103/ul Normal 0.0-0.1 [facility] Comment on above: Performed By: #### P REG, ACETON #### [facility] [address] [place] [address] Dr. Jovanni Maya Basophils/100 WBC (Bld) 0.3 % Normal 0.2-2.0 [facility] Comment on above: Performed By: #### P REG, ACETON #### [facility] [address] [address] [address] Jovanni Maya EO # 0.0 103/ul Normal 0.0-0.7 [facility] Comment on above: Performed By: #### P REG, ACETON #### [facility] [address] [place] [address] Dr. Jovanni Maya Eosinophils/100 WBC (Bld) 0.3 % Critically low 0.9-7.0 [facility] Comment on above: Performed By: #### P REG, ACETON #### [facility] [address] [address] [address] Jovanni Maya Erythrocyte distribution width (RBC) [Ratio] 13.1 % Normal 11.0-15.0 [facility] Comment on above: Performed By: #### P REG, ACETON #### [facility] [address] [place] [address] Dr. Jovanni Maya Hematocrit (Bld) [Volume fraction] 39.5 % Normal 36.0-48.0 [facility] Comment on above: Performed By: #### P REG, ACETON #### [facility] [address] [address] [address] Jovanni Maya Hemoglobin (Bld) [Mass/Vol] 13.5 g/dL Normal 12.0-16.0 [facility] Comment on above: Performed By: #### P REG, ACETON #### [facility] [address] [place] [address] Dr. Jovanni Maya IG # 0.04 10e3/ul Critically high 0.00-0.03 [facility] Comment on above: Performed By: #### P REG, ACETON #### [facility] [address] [place] [address] Dr. Jovanni Maya IG % 0.4 % Normal 0.0-0.5 [facility] Comment on above: Performed By: #### P REG, ACETON #### [facility] [address] [place] [address] Dr. Jovanni Maya LYMPH # 1.9 103/ul Normal 1.2-3.8 [facility] Comment on above: Performed By: #### P REG, ACETON #### [facility] [address] [place] [address] Dr. Jovanni Maya Lymphocytes/100 WBC (Bld) 17.4 % Critically low 20.5-60.0 [facility] Comment on above: Performed By: #### P REG, ACETON #### [facility] [address] [place] [address] Dr. Jovanni Maya MANUAL DIFF REQ NO Normal [facility] Comment on above: Performed By: #### P REG, ACETON #### [facility] [address] [place] [address] Dr. Jovanni Maya MCH (RBC) [Entitic mass] 29.3 pg Normal 26.7-34.0 [facility] Comment on above: Performed By: #### P REG, ACETON #### [facility] [address] [place] [address] Dr. Jovanni Maya MCHC (RBC) [Mass/Vol] 34.2 g/dL Normal 29.9-35.2 [facility] Comment on above: Performed By: #### P REG, ACETON #### [facility] [address] [address] [address] Jovanni Maya MCV (RBC) [Entitic vol] 85.7 fL Normal 81.0-99.0 [facility] Comment on above: Performed By: #### P REG, ACETON #### [facility] [address] [place] [address] Dr. Jovanni Maya MONO # 0.6 103/ul Normal 0.3-0.8 [facility] Comment on above: Performed By: #### P REG, ACETON #### [facility] [address] [place] [address] Dr. Jovanni Maya Monocytes/100 WBC (Bld) 5.0 % Normal 1.7-12.0 [facility] Comment on above: Performed By: #### P REG, ACETON #### [facility] [address] [place] [address] Dr. Jovanni Maya NEUT # 8.4 103/ul Critically high 1.4-6.5 [facility] Comment on above: Performed By: #### P REG, ACETON #### [facility] [address] [place] [address] Dr. Jovanni Maya Neutrophils/100 WBC (Bld) 76.6 % Critically high 43.0-75.0 [facility] Comment on above: Performed By: #### P REG, ACETON #### [facility] [address] [place] [address] Dr. Jovanni Maya Platelet mean volume (Bld) [Entitic vol] 10.5 fL Normal 9.5-13.5 [facility] Comment on above: Performed By: #### P REG, ACETON #### [facility] [address] [place] [address] Dr. Jovanni Maya PLT 279 103/ul Normal 150-450 [facility] Comment on above: Performed By: #### P REG, ACETON #### [facility] [address] [place] [address] Dr. Jovanni Maya RBC 4.61 106/ul Normal 4.20-5.40 [facility] Comment on above: Performed By: #### P REG, ACETON #### [facility] [address] [address] [address] Jovanni Maya WBC 11.0 103/ul Normal 4.0-11.0 [facility] Comment on above: Performed By: #### P REG, ACETON #### [facility] [address] [address] [address] Jovanni Maya ER URINE PROFILEon 2 Bilirubin Ql (U) Negative Normal NEGATIVE [facility] Comment on above: Performed By: #### C MP, HSTROPN #### [facility] [address] [place] [address] Dr. Jovanni Maya Clarity (U) CLEAR Normal CLEAR [facility] Comment on above: Performed By: #### C MP, HSTROPN #### [facility] [address] [place] [address] Dr. Jovanni Maya Color (U) LT. YELLOW Normal YELLOW [facility] Comment on above: Performed By: #### C MP, HSTROPN #### [facility] [address] [place] [address] Dr. Jovanni Maya ERUAHD A micrscopic examina tion will be performed if indicated. Normal [facility] Comment on above: Performed By: #### C MP, HSTROPN #### [facility] [address] [place] [address] Dr. Jovanni Maya Glucose Ql (U) Negative Normal NEGATIVE [facility] Comment on above: Performed By: #### C MP, HSTROPN #### [facility] [address] [place] [address] Dr. Jovanni Maya Hemoglobin Ql (U) Negative Normal NEGATIVE [facility] Comment on above: Performed By: #### C MP, HSTROPN #### [facility] [address] [place] [address] Dr. Jovanni Maya Ketones Ql (U) Negative Normal NEGATIVE [facility] Comment on above: Performed By: #### C MP, HSTROPN #### [facility] [address] [place] [address] Dr. Jovanni Maya LEUKOCYTES Negative Normal NEGATIVE [facility] Comment on above: Performed By: #### C MP, HSTROPN #### [facility] [address] [place] [address] Dr. Jovanni Maya Nitrite Ql (U) Negative Normal NEGATIVE [facility] Comment on above: Performed By: #### C MP, HSTROPN #### [facility] [address] [place] [address] Dr. Jovanni Maya pH (U) 7.0 [pH] Normal 5-9 [facility] Comment on above: Performed By: #### C MP, HSTROPN #### [facility] [address] [place] [address] Dr. Jovanni Maya SPEC GRAVITY 1.010 Normal 1.005-<=1.0 25 [facility] Comment on above: Performed By: #### C DANIEL, HSTROPN #### [facility] [address] [place] [address] Dr. Jovanni Maya UA PROTEIN Negative Normal NEGATIVE/ TRACE [facility] Comment on above: Performed By: #### C DANIEL, HSTROPN #### [facility] [address] [place] [address] Dr. Jovanni Maya UR MICRO IND NOT INDICATED Normal [facility] Comment on above: Performed By: #### C MP, HSTROPN #### [facility] [address] [place] [address] Dr. Jovanni Maya Urobilinogen Qn (U) 0.2 {Carlos A'U}/dL Normal 0.2 - 1. 0 [facility] Comment on above: Performed By: #### C MP, HSTROPN #### [facility] [address] [place] [address] Dr. Jovanni Maya PROF 14(COMP METB)on 022 Albumin [Mass/Vol] 3.6 g/dL Normal 3.4-5.0 [facility] Comment on above: Performed By: #### P REG, ACETON #### [facility] [address] [address] [address] Jovanni Maya Albumin/Globulin [Mass ratio] 1.2 {ratio} Normal [facility] Comment on above: Performed By: #### P REG, ACETON #### [facility] [address] [address] [address] Jovanni Maya ALP [Catalytic activity/Vol] 49 U/L Normal 46-116 [facility] Comment on above: Performed By: #### P REG, ACETON #### [facility] [address] [address] [address] Jovanni Maya ALT [Catalytic activity/Vol] 4 U/L Critically low 14-59 [facility] Comment on above: Performed By: #### P REG, ACETON #### [facility] [address] [place] [address] Dr. Jovanni Maya Anion gap [Moles/Vol] 9.0 mmol/L Normal [facility] Comment on above: Performed By: #### P REG, ACETON #### [facility] [address] [place] [address] Dr. Jovanni Maya AST [Catalytic activity/Vol] 10 U/L Critically low 15-37 [facility] Comment on above: Performed By: #### P REG, ACETON #### [facility] [address] [place] [address] Dr. Jovanni Maya Bilirubin [Mass/Vol] 0.4 mg/dL Normal 0.2-1.0 [facility] Comment on above: Performed By: #### P REG, ACETON #### [facility] [address] [place] [address] Dr. Jovanni Maya Calcium [Mass/Vol] 8.2 mg/dL Critically low 8.5-10.1 Th e [facility] Comment on above: Performed By: #### P REG, ACETON #### [facility] [address] [place] [address] Dr. Jovanni Maya Chloride [Moles/Vol] 107 mmol/L Normal 98-107 [facility] Comment on above: Performed By: #### P REG, ACETON #### [facility] [address] [address] [address] Jovanni Maya CO2 [Moles/Vol] 25.8 mmol/L Normal 21.0-32.0 [facility] Comment on above: Performed By: #### P REG, ACETON #### [facility] [address] [address] [address] Jovanni Maya Creatinine [Mass/Vol] 0.73 mg/dL Normal 0.55-1.02 [facility] Comment on above: Performed By: #### P REG, ACETON #### [facility] [address] [address] [address] Jovanni Maya EGFR-AF PAKISTANI >60 Normal >=60 [facility] Comment on above: Performed By: #### P REG, ACETON #### [facility] [address] [address] [address] Jovanni Maya EGFR-NON AF PAKISTANI >60 Normal >=60 [facility] Comment on above: Performed By: #### P REG, ACETON #### [facility] [address] [address] [address] Jovanni Maya Globulin (S) [Mass/Vol] 3.0 g/dL Normal [facility] Comment on above: Performed By: #### P REG, ACETON #### [facility] [address] [address] [address] Jovanni Maya Glucose [Mass/Vol] 121 mg/dL Critically high 74-106 [facility] Comment on above: Performed By: #### P REG, ACETON #### [facility] [address] [address] [address] Jovanni Maya Potassium [Moles/Vol] 3.8 mmol/L Normal 3.5-5.1 [facility] Comment on above: Performed By: #### P REG, ACETON #### [facility] [address] [address] [address] Jovanni Maya Protein [Mass/Vol] 6.6 g/dL Normal 6.4-8.2 [facility] Comment on above: Performed By: #### P REG, ACETON #### [facility] [address] [address] [address] Jovanni Maya Sodium [Moles/Vol] 138 mmol/L Normal 136-145 [facility] Comment on above: Performed By: #### P REG, ACETON #### [facility] [address] [address] [address] Jovanni Maya Urea nitrogen [Mass/Vol] 9.0 mg/dL Normal 7.0-18.0 [facility] Comment on above: Performed By: #### P REG, ACETON #### [facility] [address] [address] [address] Jovanni Maya Urea nitrogen/Creatinine [Mass ratio] 12.3 mg/mg Normal [facility] Comment on above: Performed By: #### P REG, ACETON #### [facility] [address] [address] [address] Jovanni Maya Albumin [Mass/volume] in Ser um or PlasmaOrdered By: Luz Fiore on 04-22-2022 Albumin [Mass/Vol] 4.1 g/dL 3.2-5.5 [facility] Amphetamine Screen Ql (U)Ord ered By: Luz Fiore on 04-22-2022 Amphetamines Ql (U) Negative Negative [facility] Automated erythrocytes count in urine sediment (number/area)Ordered By: Luz Fiore on 04-22-2022 RBC Auto (Urine sed) [#/Area] 5-9 [HPF] 0-4 [facility] Automated leukocytes count i n urine sediment (number/area)Ordered By: Luz Fiore on 04-22-2022 WBC Auto (Urine sed) [#/Area] 1-2 [HPF] 0-4 [facility] Barbiturates [Presence] in U rineOrdered By: Luz Fiore on 04-22-2022 Barbiturates Ql (U) Negative Negative [facility] Basophils Auto (Bld) [#/Vol] Ordered By: Luz Fiore on 04-22-2022 Basophils (Bld) [#/Vol] 0.0 10*3/uL 0.0-0.2 [facility] Basophils/100 WBC Auto (Bld) Ordered By: Luz Fiore on 04-22-2022 Basophils/100 WBC (Bld) 0.4 % . [facility] Benzodiazepines [Presence] i n UrineOrdered By: Luz Fiore on 04-22-2022 Benzodiazepines Ql (U) Negative Negative [facility] Bilirubin Test strip Ql (U)O rdered By: Luz Fiore on 04-22-2022 Bilirubin Ql (U) Negative Negative [facility] Cannabinoids [Presence] in U rine by Screen methodOrdered By: Luz Fiore on 04-22-2022 Cannabinoids Screen Ql (U) Positive Negative [facility] Comment on above: These are unconfirme d results and should not be used for legal purposes. Drug Cut-Off Concentration: AMPH 1000 ng/mL ELMER 200 ng/mL BRICE 200 ng/mL COCM 300 ng/mL OP 300 ng/mL PCP 25 ng/mL THC 20 ng/mL Color Auto (U)Ordered By: Giovanni Fiore on 04-22-2022 Color (U) Yellow Yellow [facility] Creatinine and Glomerular fi ltration rate.predicted panel (S/P/Bld)Ordered By: Luz Foire on 04-22-2022 Creatinine [Mass/Vol] 0.72 mg/dL 0.44-1.03 [facility] Eosinophils Auto (Bld) [#/Vo l]Ordered By: Luz Fiore on 04-22-2022 Eosinophils (Bld) [#/Vol] 0.0 10*3/uL 0.0-0.45 [facility] Eosinophils/100 WBC Auto (Bl d)Ordered By: Luz Fiore on 04-22-2022 Eosinophils/100 WBC (Bld) 0.6 % . [facility] Erythrocyte distribution wid th Auto (RBC) [Ratio]Ordered By: Luz Fiore on 04-22-2022 Erythrocyte distribution width (RBC) [Ratio] 14.6 % 11.9-15.3 [facility] Estimated glomerular filtrat ion rate (GFR) non- AmericanOrdered By: Luz Fiore on 04-22-2022 GFR/1.73 sq M.predicted among non-blacks MDRD (S/P/Bld) [Vol rate/Area] > 60 mL/Min [facility] Globulin Calc (S) [Mass/Vol] Ordered By: Luz Fiore on 04-22-2022 Globulin (S) [Mass/Vol] 3.2 g/dL [facility] Hematocrit Auto (Bld) [Volum e fraction]Ordered By: Luz Fiore on 04-22-2022 Hematocrit (Bld) [Volume fraction] 40.7 % 34.0-46.4 [facility] Hemoglobin [Mass/volume] in BloodOrdered By: Luz Fiore on 04-22-2022 Hemoglobin (Bld) [Mass/Vol] 13.4 g/dL 11.8-15.4 [facility] Ketones Auto test strip (U) [Mass/Vol]Ordered By: Luz Fiore on 04-22-2022 Ketones (U) [Mass/Vol] Negative Negative [facility] Laboratory - Drug toxicology Ordered By: Luz Fiore on 04-22-2022 Opiates Ql (U) Negative Negative [facility] Laboratory - Hematology and Cell countsOrdered By: Luz Fiore on 04-22-2022 Nucleated RBC/100 WBC (Bld) [Ratio] 0.1 % 0-0.5 [facility] Laboratory - UrinalysisOrder ed By: Luz Fiore on 04-22-2022 Hyaline casts LM Ql (Urine sed) 0-8 [LPF] 0-8 [facility] Leukocytes [#/volume] in Blo od by Automated countOrdered By: Luz Fiore on 04-22-2022 WBC (Bld) [#/Vol] 7.2 10*3/uL 4.5-11.0 [facility] Lymphocytes Auto (Bld) [#/Vo l]Ordered By: Luz Fiore on 04-22-2022 Lymphocytes (Bld) [#/Vol] 2.2 10*3/uL 1.00-4.8 [facility] Lymphocytes/100 WBC Auto (Bl d)Ordered By: Luz Fiore on 04-22-2022 Lymphocytes/100 WBC (Bld) 30.1 % . [facility] MCH Auto (RBC) [Entitic mass ]Ordered By: Luz Fiore on 04-22-2022 MCH (RBC) [Entitic mass] 28.8 pg 24.7-34.3 [facility] MCHC Auto (RBC) [Mass/Vol]Or dered By: Luz Fiore on 04-22-2022 MCHC (RBC) [Mass/Vol] 32.9 g/dL 32.0-35.0 [facility] MCV Auto (RBC) [Entitic vol] Ordered By: Luz Fiore on 04-22-2022 MCV (RBC) [Entitic vol] 87.4 fL 80-100 [facility] Monocytes Auto (Bld) [#/Vol] Ordered By: Luz Fiore on 04-22-2022 Monocytes (Bld) [#/Vol] 0.5 10*3/uL 0.0-0.8 [facility] Monocytes/100 WBC Auto (Bld) Ordered By: Luz Fiore on 04-22-2022 Monocytes/100 WBC (Bld) 7.1 % . [facility] Neutrophils Auto (Bld) [#/Vo l]Ordered By: Luz Fiore on 04-22-2022 Neutrophils (Bld) [#/Vol] 4.4 10*3/uL 1.8-7.7 [facility] Neutrophils/100 WBC Auto (Bl d)Ordered By: Luz Fiore on 04-22-2022 Neutrophils/100 WBC (Bld) 61.8 % . [facility] Nitrite Test strip Ql (U)Ord ered By: Luz Fiore on 04-22-2022 Nitrite Ql (U) Negative Negative [facility] No Panel InformationOrdered By: Luz Fiore on 04-22-2022 Estimated GFR () > 60 mL/Min [facility] Comment on above: GFR estimated refere nce range: According to KDOQI guidelines, <60 ml/min/1.73m2 is sufficient to diagnose a patient with chronic kidney disease. Pharmacy Creatinine Clearance (Chem 94.05 [facility] Phencyclidine Screen Ql (U)O rdered By: Luz Fiore on 04-22-2022 Phencyclidine Ql (U) Negative Negative [facility] Platelet mean volume Auto (B ld) [Entitic vol]Ordered By: Luz Fiore on 04-22-2022 Platelet mean volume (Bld) [Entitic vol] 8.2 fL 6.3-10.7 [facility] Platelets Auto (Bld) [#/Vol] Ordered By: Luz Fiore on 04-22-2022 Platelets (Bld) [#/Vol] 268 10*3/uL 150-450 [facility] Protein Auto test strip (U) [Mass/Vol]Ordered By: Luz Fiore on 04-22-2022 Protein (U) [Mass/Vol] Negative Negative [facility] Protein [Mass/volume] in Ser um or PlasmaOrdered By: Luz Fiore on 04-22-2022 Protein [Mass/Vol] 7.3 g/dL 6.1-7.9 [facility] RBC Auto (Bld) [#/Vol]Ordere d By: Luz Fiore on 04-22-2022 RBC (Bld) [#/Vol] 4.66 10*6/uL 3.60-5.00 [facility] Serum or plasma alanine white otransferase measurement without P-5'-P (enzymatic activiOrdered By: Luz Fiore on 04-22-2022 ALT No additional P-5'-P [Catalytic activity/Vol] 10 U/L [facility] Serum or plasma albumin/glob ulin mass ratioOrdered By: Luz Fiore on 04-22-2022 Albumin/Globulin [Mass ratio] 1.3 {ratio} [facility] Serum or plasma alkaline ignacio sphatase measurement (enzymatic activity/volume)Ordered By: Luz Fiore on 04-22-2022 ALP [Catalytic activity/Vol] 49 U/L 32-92 [facility] Serum or plasma anion gap de terminationOrdered By: Luz Fiore on 04-22-2022 Anion gap [Moles/Vol] 11.7 mmol/L 6.0-15.0 [facility] Serum or plasma aspartate am inotransferase measurement (enzymatic activity/volume)Ordered By: Luz Fiore on 04-22-2022 AST [Catalytic activity/Vol] 17 U/L [facility] Serum or plasma calcium randi urement (mass/volume)Ordered By: Luz Fiore on 04-22-2022 Calcium [Mass/Vol] 9.4 mg/dL 8.2-10.2 [facility] Serum or plasma chloride melonie surement (moles/volume)Ordered By: Luz Fiore on 04-22-2022 Chloride [Moles/Vol] 102 mmol/L 95-114 [facility] Serum or plasma glucose randi urement (mass/volume)Ordered By: Luz Fiore on 04-22-2022 Glucose [Mass/Vol] 101 mg/dL 70-100 [facility] Comment on above: ADA recommended refe rence rangeRandom Glucose Reference Range is dependent on time and content of last meal. Glucose of more than 200 mg/dL in a nonstressed, ambulatory subject supports the diagnosis of Diabetes Mellitus. Serum or plasma potassium me asurement (moles/volume)Ordered By: Luz Fiore on 04-22-2022 Potassium [Moles/Vol] 3.9 mmol/L 3.5-5.1 [facility] Serum or plasma sodium measu rement (moles/volume)Ordered By: Luz Fiore on 04-22-2022 Sodium [Moles/Vol] 139 mmol/L 136-146 [facility] Serum or plasma total biliru bin measurement (mass/volume)Ordered By: Luz Fiore on 04-22-2022 Bilirubin [Mass/Vol] 0.7 mg/dL 0.3-1.2 [facility] Serum or plasma total carbon dioxide measurement (moles/volume)Ordered By: Luz Fiore on 04-22-2022 CO2 [Moles/Vol] 29.2 mmol/L 22.0-30.0 [facility] Serum or plasma urea nitroge n measurement (mass/volume)Ordered By: Luz Fiore on 04-22-2022 Urea nitrogen [Mass/Vol] 6 mg/dL 9- [facility] Specific gravity Auto test s trip (U) [Rel density]Ordered By: Luz Fiore on 04-22-2022 Specific gravity (U) [Rel density] 1.017 1.001-1.030 [facility] Squamous epithelial cells de tection in urine sediment by light microscopyOrdered By: Luz Fiore on 04-22-2022 Epithelial cells.squamous LM Ql (Urine sed) 0-1 [HPF] 0-2 [facility] Urine bacteria detection by automated methodOrdered By: Luz Fiore on 04-22-2022 Bacteria Auto Ql (U) None seen None Seen [facility] Urine clarity by refractomet ry automatedOrdered By: Luz Fiore on 04-22-2022 Clarity Refractometry automated (U) Turbid Clear [facility] Urine cocaine detectionOrder ed By: Luz Fiore on 04-22-2022 Cocaine Ql (U) Negative Negative [facility] Urine glucose measurement by automated test strip (mass/volume)Ordered By: Luz Fiore on 04-22-2022 Glucose Auto test strip (U) [Mass/Vol] Normal mg/dL Normal [facility] Urine hemoglobin detection b y automated test stripOrdered By: Luz Fiore on 04-22-2022 Hemoglobin Auto test strip Ql (U) 2+ Negative [facility] Urine leukocyte esterase det ection by automated test stripOrdered By: Luz Fiore on 04-22-2022 Leukocyte esterase Auto test strip Ql (U) Negative Negative [facility] Urobilinogen Auto test strip (U) [Mass/Vol]Ordered By: Luz Fiore on 04-22-2022 Urobilinogen (U) [Mass/Vol] Normal mg/dL Normal [facility] Yeast detection in urine sed iment by light microscopyOrdered By: Luz Fiore on 04-22-2022 Yeast LM Ql (Urine sed) None seen [HPF] None Seen [facility] pH Auto test strip (U)Ordere d By: Luz Fiore on 04-22-2022 pH (U) 7.0 [pH] 5.0-9.0 [facility] Urine culture routineOrdered By: Luz Fiore on 04-07-2022 Bacteria identified Cx Nom (U) No Growth 2 Days [facility] Amphetamine Screen Ql (U)Ord ered By: uLz Fiore on 04-05-2022 Amphetamines Ql (U) Negative Negative [facility] Automated erythrocytes count in urine sediment (number/area)Ordered By: Luz Fiore on 04-05-2022 RBC Auto (Urine sed) [#/Area] 5-9 [HPF] 0-4 [facility] Automated leukocytes count i n urine sediment (number/area)Ordered By: Luz Fiore on 04-05-2022 WBC Auto (Urine sed) [#/Area] 5-9 [HPF] 0-4 [facility] Barbiturates [Presence] in U rineOrdered By: Luz Fiore on 04-05-2022 Barbiturates Ql (U) Negative Negative [facility] Basophils Auto (Bld) [#/Vol] Ordered By: Luz Fiore on 04-05-2022 Basophils (Bld) [#/Vol] 0.0 10*3/uL 0.0-0.2 [facility] Basophils/100 WBC Auto (Bld) Ordered By: Luz Fiore on 04-05-2022 Basophils/100 WBC (Bld) 0.5 % . [facility] Benzodiazepines [Presence] i n UrineOrdered By: Luz Fiore on 04-05-2022 Benzodiazepines Ql (U) Negative Negative [facility] Bilirubin Test strip Ql (U)O rdered By: Luz Fiore on 04-05-2022 Bilirubin Ql (U) Negative Negative [facility] Blood hemoglobin measurement (mass/volume)Ordered By: Luz Fiore on 04-05-2022 Hemoglobin (Bld) [Mass/Vol] 13.4 g/dL 11.8-15.4 [facility] Blood leukocytes automated c ount (number/volume)Ordered By: Luz Fiore on 04-05-2022 WBC (Bld) [#/Vol] 6.5 10*3/uL 4.5-11.0 [facility] Cannabinoids [Presence] in U rine by Screen methodOrdered By: Luz Fiore on 04-05-2022 Cannabinoids Screen Ql (U) Positive Negative [facility] Comment on above: These are unconfirme d results and should not be used for legal purposes. Drug Cut-Off Concentration: AMPH 1000 ng/mL ELMER 200 ng/mL BRICE 200 ng/mL COCM 300 ng/mL OP 300 ng/mL PCP 25 ng/mL THC 20 ng/mL Color Auto (U)Ordered By: Giovanni Fiore on 04-05-2022 Color (U) Yellow Yellow [facility] Creatinine and Glomerular fi ltration rate.predicted panel (S/P/Bld)Ordered By: Luz Fiore on 04-05-2022 Creatinine [Mass/Vol] 0.73 mg/dL 0.44-1.03 [facility] Eosinophils Auto (Bld) [#/Vo l]Ordered By: Luz Fiore on 04-05-2022 Eosinophils (Bld) [#/Vol] 0.0 10*3/uL 0.0-0.45 [facility] Eosinophils/100 WBC Auto (Bl d)Ordered By: Luz Fiore on 04-05-2022 Eosinophils/100 WBC (Bld) 0.5 % . [facility] Erythrocyte distribution wid th Auto (RBC) [Ratio]Ordered By: Luz Fiore on 04-05-2022 Erythrocyte distribution width (RBC) [Ratio] 14.2 % 11.9-15.3 [facility] Estimated glomerular filtrat ion rate (GFR) non- AmericanOrdered By: Luz Fiore on 04-05-2022 GFR/1.73 sq M.predicted among non-blacks MDRD (S/P/Bld) [Vol rate/Area] > 60 mL/Min [facility] HCG ( test) IA.rapi d Ql (U)Ordered By: Luz Fiore on 04-05-2022 HCG ( test) Ql (U) Negative [facility] Hematocrit Auto (Bld) [Volum e fraction]Ordered By: Luz Fiore on 04-05-2022 Hematocrit (Bld) [Volume fraction] 40.4 % 34.0-46.4 [facility] Ketones Auto test strip (U) [Mass/Vol]Ordered By: Luz Fiore on 04-05-2022 Ketones (U) [Mass/Vol] Negative Negative [facility] Laboratory - Drug toxicology Ordered By: Luz Fiore on 04-05-2022 Opiates Ql (U) Negative Negative [facility] Laboratory - Hematology and Cell countsOrdered By: Luz Fiore on 04-05-2022 Nucleated RBC/100 WBC (Bld) [Ratio] 0.1 % 0-0.5 [facility] Laboratory - UrinalysisOrder ed By: Luz Fiore on 04-05-2022 Hyaline casts LM Ql (Urine sed) 0-8 [LPF] 0-8 [facility] Lymphocytes Auto (Bld) [#/Vo l]Ordered By: Luz Fiore on 04-05-2022 Lymphocytes (Bld) [#/Vol] 2.0 10*3/uL 1.00-4.8 [facility] Lymphocytes/100 WBC Auto (Bl d)Ordered By: Luz Fiore on 04-05-2022 Lymphocytes/100 WBC (Bld) 30.0 % . [facility] MCH Auto (RBC) [Entitic mass ]Ordered By: Luz Fiore on 04-05-2022 MCH (RBC) [Entitic mass] 28.8 pg 24.7-34.3 [facility] MCHC Auto (RBC) [Mass/Vol]Or dered By: Luz Fiore on 04-05-2022 MCHC (RBC) [Mass/Vol] 33.2 g/dL 32.0-35.0 [facility] MCV Auto (RBC) [Entitic vol] Ordered By: Luz Fiore on 04-05-2022 MCV (RBC) [Entitic vol] 86.6 fL 80-100 [facility] Monocytes Auto (Bld) [#/Vol] Ordered By: Luz Fiore on 04-05-2022 Monocytes (Bld) [#/Vol] 0.5 10*3/uL 0.0-0.8 [facility] Monocytes/100 WBC Auto (Bld) Ordered By: Luz Fiore on 04-05-2022 Monocytes/100 WBC (Bld) 7.0 % . [facility] Neutrophils Auto (Bld) [#/Vo l]Ordered By: Luz Fiore on 04-05-2022 Neutrophils (Bld) [#/Vol] 4.0 10*3/uL 1.8-7.7 [facility] Neutrophils/100 WBC Auto (Bl d)Ordered By: Luz Fiore on 04-05-2022 Neutrophils/100 WBC (Bld) 62.0 % . [facility] Nitrite Test strip Ql (U)Ord ered By: Luz Fiore on 04-05-2022 Nitrite Ql (U) Negative Negative [facility] No Panel InformationOrdered By: Luz iFore on 04-05-2022 Estimated GFR () > 60 mL/Min [facility] Comment on above: GFR estimated refere nce range: According to KDOQI guidelines, <60 ml/min/1.73m2 is sufficient to diagnose a patient with chronic kidney disease. Pharmacy Creatinine Clearance (Chem 92.76 [facility] Phencyclidine Screen Ql (U)O rdered By: Luz Fiore on 04-05-2022 Phencyclidine Ql (U) Negative Negative [facility] Platelet mean volume Auto (B ld) [Entitic vol]Ordered By: Luz Fiore on 04-05-2022 Platelet mean volume (Bld) [Entitic vol] 7.8 fL 6.3-10.7 [facility] Platelets Auto (Bld) [#/Vol] Ordered By: Luz Fiore on 04-05-2022 Platelets (Bld) [#/Vol] 278 10*3/uL 150-450 [facility] Protein Auto test strip (U) [Mass/Vol]Ordered By: Luz Fiore on 04-05-2022 Protein (U) [Mass/Vol] Negative Negative [facility] RBC Auto (Bld) [#/Vol]Ordere d By: Luz Fiore on 04-05-2022 RBC (Bld) [#/Vol] 4.66 10*6/uL 3.60-5.00 [facility] Serum or plasma anion gap de terminationOrdered By: Luz Fiore on 04-05-2022 Anion gap [Moles/Vol] 14.4 mmol/L 6.0-15.0 [facility] Serum or plasma calcium randi urement (mass/volume)Ordered By: Luz Fiore on 04-05-2022 Calcium [Mass/Vol] 9.5 mg/dL 8.2-10.2 [facility] Serum or plasma chloride melonie surement (moles/volume)Ordered By: Luz Fiore on 04-05-2022 Chloride [Moles/Vol] 100 mmol/L 95-114 [facility] Serum or plasma glucose randi urement (mass/volume)Ordered By: Luz Fiore on 04-05-2022 Glucose [Mass/Vol] 97 mg/dL 70-100 [facility] Comment on above: ADA recommended refe rence rangeRandom Glucose Reference Range is dependent on time and content of last meal. Glucose of more than 200 mg/dL in a nonstressed, ambulatory subject supports the diagnosis of Diabetes Mellitus. Serum or plasma potassium me asurement (moles/volume)Ordered By: Luz Fiore on 04-05-2022 Potassium [Moles/Vol] 4.1 mmol/L 3.5-5.1 [facility] Serum or plasma sodium measu rement (moles/volume)Ordered By: Luz Fiore on 04-05-2022 Sodium [Moles/Vol] 139 mmol/L 136-146 [facility] Serum or plasma total carbon dioxide measurement (moles/volume)Ordered By: Luz Fiore on 04-05-2022 CO2 [Moles/Vol] 28.7 mmol/L 22.0-30.0 [facility] Serum or plasma urea nitroge n measurement (mass/volume)Ordered By: Luz Fiore on 04-05-2022 Urea nitrogen [Mass/Vol] 7 mg/dL 9-23 [facility] Specific gravity Auto test s trip (U) [Rel density]Ordered By: Luz Fiore on 04-05-2022 Specific gravity (U) [Rel density] 1.011 1.001-1.030 [facility] Squamous epithelial cells de tection in urine sediment by light microscopyOrdered By: Luz Fiore on 04-05-2022 Epithelial cells.squamous LM Ql (Urine sed) 1-2 [HPF] 0-2 [facility] Urine bacteria detection by automated methodOrdered By: Luz Fiore on 04-05-2022 Bacteria Auto Ql (U) None seen None Seen [facility] Urine clarity by refractomet ry automatedOrdered By: Luz Fiore on 04-05-2022 Clarity Refractometry automated (U) Cloudy Clear [facility] Urine cocaine detectionOrder ed By: Luz Fiore on 04-05-2022 Cocaine Ql (U) Negative Negative [facility] Urine glucose measurement by automated test strip (mass/volume)Ordered By: Luz Fiore on 04-05-2022 Glucose Auto test strip (U) [Mass/Vol] Normal mg/dL Normal [facility] Urine hemoglobin detection b y automated test stripOrdered By: Luz Fiore on 04-05-2022 Hemoglobin Auto test strip Ql (U) Trace Negative [facility] Urine leukocyte esterase det ection by automated test stripOrdered By: Luz Fiore on 04-05-2022 Leukocyte esterase Auto test strip Ql (U) 1+ Negative [facility] Urobilinogen Auto test strip (U) [Mass/Vol]Ordered By: Luz Fiore on 04-05-2022 Urobilinogen (U) [Mass/Vol] Normal mg/dL Normal [facility] pH Auto test strip (U)Ordere d By: Luz Fiore on 04-05-2022 pH (U) 7.0 [pH] 5.0-9.0 [facility] Urine culture routineOrdered By: Mario Alberto Jose on 04-01-2022 Bacteria identified Cx Nom (U) 2 Days [facility] Automated erythrocytes count in urine sediment (number/area)Ordered By: Mario Alberto Jose on 03-30-2022 RBC Auto (Urine sed) [#/Area] 5-9 [HPF] 0-4 [facility] Automated leukocytes count i n urine sediment (number/area)Ordered By: Mario Alberto Jose on 03-30-2022 WBC Auto (Urine sed) [#/Area] 5-9 [HPF] 0-4 [facility] Basophils Auto (Bld) [#/Vol] Ordered By: Mario Alberto Jose on 03-30-2022 Basophils (Bld) [#/Vol] 0.0 10*3/uL 0.0-0.2 [facility] Basophils/100 WBC Auto (Bld) Ordered By: Mario Alberto Jose on 03-30-2022 Basophils/100 WBC (Bld) 0.4 % . [facility] Bilirubin Test strip Ql (U)O rdered By: Mario Alberto Jose on 03-30-2022 Bilirubin Ql (U) Negative Negative [facility] Blood hemoglobin measurement (mass/volume)Ordered By: Mario Alberto Jose on 03-30-2022 Hemoglobin (Bld) [Mass/Vol] 14.6 g/dL 11.8-15.4 [facility] Blood leukocytes automated c ount (number/volume)Ordered By: Mario Alberto Jose on 03-30-2022 WBC (Bld) [#/Vol] 7.6 10*3/uL 4.5-11.0 [facility] Color Auto (U)Ordered By: Sushma Jose on 03-30-2022 Color (U) Yellow Yellow [facility] Creatinine and Glomerular fi ltration rate.predicted panel (S/P/Bld)Ordered By: Mario Alberto Jose on 03-30-2022 Creatinine [Mass/Vol] 0.80 mg/dL 0.44-1.03 [facility] Eosinophils Auto (Bld) [#/Vo l]Ordered By: Mario Alberto Jose on 03-30-2022 Eosinophils (Bld) [#/Vol] 0.1 10*3/uL 0.0-0.45 [facility] Eosinophils/100 WBC Auto (Bl d)Ordered By: Mario Alberto Jose on 03-30-2022 Eosinophils/100 WBC (Bld) 0.8 % . [facility] Erythrocyte distribution wid th Auto (RBC) [Ratio]Ordered By: Mario Alberto Jose on 03-30-2022 Erythrocyte distribution width (RBC) [Ratio] 14.4 % 11.9-15.3 [facility] Estimated glomerular filtrat ion rate (GFR) non- AmericanOrdered By: Mario Alberto Jose on 03-30-2022 GFR/1.73 sq M.predicted among non-blacks MDRD (S/P/Bld) [Vol rate/Area] > 60 mL/Min [facility] Hematocrit Auto (Bld) [Volum e fraction]Ordered By: Mario Alberto Jose on 03-30-2022 Hematocrit (Bld) [Volume fraction] 43.8 % 34.0-46.4 [facility] Ketones Auto test strip (U) [Mass/Vol]Ordered By: Mario Alberto Jose on 03-30-2022 Ketones (U) [Mass/Vol] Negative Negative [facility] Laboratory - Hematology and Cell countsOrdered By: Mario Alberto Jose on 03-30-2022 Nucleated RBC/100 WBC (Bld) [Ratio] 0.1 % 0-0.5 [facility] Laboratory - UrinalysisOrder ed By: Mario Alberto Jose on 03-30-2022 Hyaline casts LM Ql (Urine sed) 0-8 [LPF] 0-8 [facility] Lymphocytes Auto (Bld) [#/Vo l]Ordered By: Mario Alberto Jose on 03-30-2022 Lymphocytes (Bld) [#/Vol] 2.4 10*3/uL 1.00-4.8 [facility] Lymphocytes/100 WBC Auto (Bl d)Ordered By: Mario Alberto Jose on 03-30-2022 Lymphocytes/100 WBC (Bld) 31.6 % . [facility] MCH Auto (RBC) [Entitic mass ]Ordered By: Mario Alberto Jose on 03-30-2022 MCH (RBC) [Entitic mass] 28.9 pg 24.7-34.3 [facility] MCHC Auto (RBC) [Mass/Vol]Or dered By: Mario Alberto Jose on 03-30-2022 MCHC (RBC) [Mass/Vol] 33.4 g/dL 32.0-35.0 [facility] MCV Auto (RBC) [Entitic vol] Ordered By: Mario Alberto Jose on 03-30-2022 MCV (RBC) [Entitic vol] 86.6 fL 80-100 [facility] Monocytes Auto (Bld) [#/Vol] Ordered By: Mario Alberto Jose on 03-30-2022 Monocytes (Bld) [#/Vol] 0.5 10*3/uL 0.0-0.8 [facility] Monocytes/100 WBC Auto (Bld) Ordered By: Mario Alberto Jose on 03-30-2022 Monocytes/100 WBC (Bld) 7.0 % . [facility] Neutrophils Auto (Bld) [#/Vo l]Ordered By: Mario Alberto Jose on 03-30-2022 Neutrophils (Bld) [#/Vol] 4.6 10*3/uL 1.8-7.7 [facility] Neutrophils/100 WBC Auto (Bl d)Ordered By: Mario Alberto Jose on 03-30-2022 Neutrophils/100 WBC (Bld) 60.2 % . [facility] Nitrite Test strip Ql (U)Ord ered By: Mario Alberto Jose on 03-30-2022 Nitrite Ql (U) Negative Negative [facility] No Panel InformationOrdered By: Mario Alberto Jose on 03-30-2022 Estimated GFR () > 60 mL/Min [facility] Comment on above: GFR estimated refere nce range: According to KDOQI guidelines, <60 ml/min/1.73m2 is sufficient to diagnose a patient with chronic kidney disease. Pharmacy Creatinine Clearance (Chem 84.65 [facility] Platelet mean volume Auto (B ld) [Entitic vol]Ordered By: Mario Alberto Jose on 03-30-2022 Platelet mean volume (Bld) [Entitic vol] 8.4 fL 6.3-10.7 [facility] Platelets Auto (Bld) [#/Vol] Ordered By: Mario Alberto Jose on 03-30-2022 Platelets (Bld) [#/Vol] 286 10*3/uL 150-450 [facility] Protein Auto test strip (U) [Mass/Vol]Ordered By: Mario Alberto Jose on 03-30-2022 Protein (U) [Mass/Vol] Negative Negative [facility] RBC Auto (Bld) [#/Vol]Ordere d By: Mario Alberto Jose on 03-30-2022 RBC (Bld) [#/Vol] 5.05 10*6/uL 3.60-5.00 [facility] Serum or plasma anion gap de terminationOrdered By: Mario Alberto Jose on 03-30-2022 Anion gap [Moles/Vol] 15.0 mmol/L 6.0-15.0 [facility] Serum or plasma calcium randi urement (mass/volume)Ordered By: Mario Alberto Jose on 03-30-2022 Calcium [Mass/Vol] 9.9 mg/dL 8.2-10.2 [facility] Serum or plasma chloride melonie surement (moles/volume)Ordered By: Mario Alberto Jose on 03-30-2022 Chloride [Moles/Vol] 100 mmol/L 95-114 [facility] Serum or plasma glucose randi urement (mass/volume)Ordered By: Mario Alberto Jose on 03-30-2022 Glucose [Mass/Vol] 104 mg/dL 70-100 [facility] Comment on above: ADA recommended refe rence rangeRandom Glucose Reference Range is dependent on time and content of last meal. Glucose of more than 200 mg/dL in a nonstressed, ambulatory subject supports the diagnosis of Diabetes Mellitus. Serum or plasma potassium me asurement (moles/volume)Ordered By: Mario Alberto Jose on 03-30-2022 Potassium [Moles/Vol] 4.1 mmol/L 3.5-5.1 [facility] Serum or plasma sodium measu rement (moles/volume)Ordered By: Mario Alberto Jose on 03-30-2022 Sodium [Moles/Vol] 138 mmol/L 136-146 [facility] Serum or plasma total carbon dioxide measurement (moles/volume)Ordered By: Mario Alberto Jose on 03-30-2022 CO2 [Moles/Vol] 27.1 mmol/L 22.0-30.0 [facility] Serum or plasma urea nitroge n measurement (mass/volume)Ordered By: Mario Alberto Jose on 03-30-2022 Urea nitrogen [Mass/Vol] 10 mg/dL 9-23 [facility] Specific gravity Auto test s trip (U) [Rel density]Ordered By: Mario Alberto Jose on 03-30-2022 Specific gravity (U) [Rel density] 1.007 1.001-1.030 [facility] Squamous epithelial cells de tection in urine sediment by light microscopyOrdered By: Mario Alberto Jose on 03-30-2022 Epithelial cells.squamous LM Ql (Urine sed) 3-4 [HPF] 0-2 [facility] Urine bacteria detection by automated methodOrdered By: Mario Alberto Jose on 03-30-2022 Bacteria Auto Ql (U) 1+ None Seen [facility] Urine clarity by refractomet ry automatedOrdered By: Mario Alberto Jose on 03-30-2022 Clarity Refractometry automated (U) Clear Clear [facility] Urine glucose measurement by automated test strip (mass/volume)Ordered By: Mario Alberto Jose on 03-30-2022 Glucose Auto test strip (U) [Mass/Vol] Normal mg/dL Normal [facility] Urine hemoglobin detection b y automated test stripOrdered By: Mario Alberto Jose on 03-30-2022 Hemoglobin Auto test strip Ql (U) Negative Negative [facility] Urine leukocyte esterase det ection by automated test stripOrdered By: Mario Alberto Jose on 03-30-2022 Leukocyte esterase Auto test strip Ql (U) 1+ Negative [facility] Urobilinogen Auto test strip (U) [Mass/Vol]Ordered By: Mario Alberto Jose on 03-30-2022 Urobilinogen (U) [Mass/Vol] Normal mg/dL Normal [facility] pH Auto test strip (U)Ordere d By: Mario Alberto Jose on 03-30-2022 pH (U) 7.5 [pH] 5.0-9.0 [facility] Albumin [Mass/volume] in Ser um or PlasmaOrdered By: Phyllis Roman on 03-19-2022 Albumin [Mass/Vol] 4.8 g/dL 3.2-5.5 [facility] Basophils Auto (Bld) [#/Vol] Ordered By: Phyllis Roman on 03-19-2022 Basophils (Bld) [#/Vol] 0.0 10*3/uL 0.0-0.2 [facility] Basophils/100 WBC Auto (Bld) Ordered By: Phyllis Roman on 03-19-2022 Basophils/100 WBC (Bld) 0.6 % . [facility] Blood hemoglobin measurement (mass/volume)Ordered By: Phyllis Roman on 03-19-2022 Hemoglobin (Bld) [Mass/Vol] 14.3 g/dL 11.8-15.4 [facility] Blood leukocytes automated c ount (number/volume)Ordered By: Phyllis Roman on 03-19-2022 WBC (Bld) [#/Vol] 7.5 10*3/uL 4.5-11.0 [facility] Creatinine and Glomerular fi ltration rate.predicted panel (S/P/Bld)Ordered By: Phyllis Roman on 03-19-2022 Creatinine [Mass/Vol] 0.91 mg/dL 0.44-1.03 [facility] Eosinophils Auto (Bld) [#/Vo l]Ordered By: Phyllis Roman on 03-19-2022 Eosinophils (Bld) [#/Vol] 0.1 10*3/uL 0.0-0.45 [facility] Eosinophils/100 WBC Auto (Bl d)Ordered By: Phyllis Roman on 03-19-2022 Eosinophils/100 WBC (Bld) 1.4 % . [facility] Erythrocyte distribution wid th Auto (RBC) [Ratio]Ordered By: Phyllis Roman on 03-19-2022 Erythrocyte distribution width (RBC) [Ratio] 14.9 % 11.9-15.3 [facility] Estimated glomerular filtrat ion rate (GFR) non- AmericanOrdered By: Phyllis Roman on 03-19-2022 GFR/1.73 sq M.predicted among non-blacks MDRD (S/P/Bld) [Vol rate/Area] > 60 mL/Min [facility] Globulin Calc (S) [Mass/Vol] Ordered By: Phyllis Roman on 03-19-2022 Globulin (S) [Mass/Vol] 3.6 g/dL [facility] Hematocrit Auto (Bld) [Volum e fraction]Ordered By: Phyllis Roman on 03-19-2022 Hematocrit (Bld) [Volume fraction] 43.6 % 34.0-46.4 [facility] Laboratory - Hematology and Cell countsOrdered By: Phyllis Roman on 03-19-2022 Nucleated RBC/100 WBC (Bld) [Ratio] 0.0 % 0-0.5 [facility] Lymphocytes Auto (Bld) [#/Vo l]Ordered By: Phyllis Roman on 03-19-2022 Lymphocytes (Bld) [#/Vol] 2.6 10*3/uL 1.00-4.8 [facility] Lymphocytes/100 WBC Auto (Bl d)Ordered By: Phyllis Roman on 03-19-2022 Lymphocytes/100 WBC (Bld) 34.0 % . [facility] MCH Auto (RBC) [Entitic mass ]Ordered By: Phyllis Roman on 03-19-2022 MCH (RBC) [Entitic mass] 29.1 pg 24.7-34.3 [facility] MCHC Auto (RBC) [Mass/Vol]Or dered By: Phyllis Roman on 03-19-2022 MCHC (RBC) [Mass/Vol] 32.8 g/dL 32.0-35.0 [facility] MCV Auto (RBC) [Entitic vol] Ordered By: Phyllis Roman on 03-19-2022 MCV (RBC) [Entitic vol] 88.6 fL 80-100 [facility] Monocytes Auto (Bld) [#/Vol] Ordered By: Phyllis Roman on 03-19-2022 Monocytes (Bld) [#/Vol] 0.5 10*3/uL 0.0-0.8 [facility] Monocytes/100 WBC Auto (Bld) Ordered By: Phyllis Roman on 03-19-2022 Monocytes/100 WBC (Bld) 6.9 % . [facility] Neutrophils Auto (Bld) [#/Vo l]Ordered By: Phyllis Roman on 03-19-2022 Neutrophils (Bld) [#/Vol] 4.3 10*3/uL 1.8-7.7 [facility] Neutrophils/100 WBC Auto (Bl d)Ordered By: Phyllis Roman on 03-19-2022 Neutrophils/100 WBC (Bld) 57.1 % . [facility] No Panel InformationOrdered By: Phyllis Roman on 03-19-2022 Estimated GFR () > 60 mL/Min [facility] Comment on above: GFR estimated refere nce range: According to KDOQI guidelines, <60 ml/min/1.73m2 is sufficient to diagnose a patient with chronic kidney disease. Pharmacy Creatinine Clearance (Chem 74.41 [facility] Platelet mean volume Auto (B ld) [Entitic vol]Ordered By: Phyllis Roman on 03-19-2022 Platelet mean volume (Bld) [Entitic vol] 8.9 fL 6.3-10.7 [facility] Platelets Auto (Bld) [#/Vol] Ordered By: Phyllis Roman on 03-19-2022 Platelets (Bld) [#/Vol] 266 10*3/uL 150-450 [facility] Prolactin [Mass/volume] in S alexis or PlasmaOrdered By: Phyllis Roman on 03-19-2022 Prolactin [Mass/Vol] 18.55 ng/mL 3.34-26.72 [facility] Protein [Mass/volume] in Ser um or PlasmaOrdered By: Phyllis Roman on 03-19-2022 Protein [Mass/Vol] 8.4 g/dL 6.1-7.9 [facility] RBC Auto (Bld) [#/Vol]Ordere d By: Phyllis Roman on 03-19-2022 RBC (Bld) [#/Vol] 4.92 10*6/uL 3.60-5.00 [facility] Serum or plasma alanine white otransferase measurement without P-5'-P (enzymatic activiOrdered By: Phyllis Roman on 03-19-2022 ALT No additional P-5'-P [Catalytic activity/Vol] 11 U/L 10-60 [facility] Serum or plasma albumin/glob ulin mass ratioOrdered By: Phyllis Roman on 03-19-2022 Albumin/Globulin [Mass ratio] 1.3 {ratio} [facility] Serum or plasma alkaline ignacio sphatase measurement (enzymatic activity/volume)Ordered By: Phyllis Roman on 03-19-2022 ALP [Catalytic activity/Vol] 51 U/L 32-92 [facility] Serum or plasma anion gap de terminationOrdered By: Phyllis Roman on 03-19-2022 Anion gap [Moles/Vol] 17.7 mmol/L 6.0-15.0 [facility] Serum or plasma aspartate am inotransferase measurement (enzymatic activity/volume)Ordered By: Phyllis Roman on 03-19-2022 AST [Catalytic activity/Vol] 22 U/L 10-42 [facility] Serum or plasma calcium randi urement (mass/volume)Ordered By: Phyllis Roman on 03-19-2022 Calcium [Mass/Vol] 9.8 mg/dL 8.2-10.2 [facility] Serum or plasma chloride melonie surement (moles/volume)Ordered By: Phyllis Roman on 03-19-2022 Chloride [Moles/Vol] 101 mmol/L 95-114 [facility] Serum or plasma glucose randi urement (mass/volume)Ordered By: Phyllis Roman on 03-19-2022 Glucose [Mass/Vol] 83 mg/dL 70-100 [facility] Comment on above: ADA recommended refe rence range Random Glucose Reference Range is dependent on time and content of last meal. Glucose of more than 200 mg/dL in a nonstressed, ambulatory subject supports the diagnosis of Diabetes Mellitus. ADA recommended refe rence rangeRandom Glucose Reference Range is dependent on time and content of last meal. Glucose of more than 200 mg/dL in a nonstressed, ambulatory subject supports the diagnosis of Diabetes Mellitus. Serum or plasma potassium me asurement (moles/volume)Ordered By: Phyllis Roman on 03-19-2022 Potassium [Moles/Vol] 3.7 mmol/L 3.5-5.1 [facility] Serum or plasma sodium measu rement (moles/volume)Ordered By: Phyllis Roman on 03-19-2022 Sodium [Moles/Vol] 138 mmol/L 136-146 [facility] Serum or plasma total biliru bin measurement (mass/volume)Ordered By: Phyllis Roman on 03-19-2022 Bilirubin [Mass/Vol] 0.7 mg/dL 0.3-1.2 [facility] Serum or plasma total carbon dioxide measurement (moles/volume)Ordered By: Phyllis Roman on 03-19-2022 CO2 [Moles/Vol] 23.0 mmol/L 22.0-30.0 [facility] Serum or plasma urea nitroge n measurement (mass/volume)Ordered By: Phyllis Roman on 03-19-2022 Urea nitrogen [Mass/Vol] 8 mg/dL 03-19 [facility] Albumin [Mass/volume] in Ser um or PlasmaOrdered By: Tommy Bowen on 02-25-2022 Albumin [Mass/Vol] 4.1 g/dL 3.2-5.5 [facility] Basophils Auto (Bld) [#/Vol] Ordered By: Tommy Bowen on 02-25-2022 Basophils (Bld) [#/Vol] 0.0 10*3/uL 0.0-0.2 [facility] Basophils/100 WBC Auto (Bld) Ordered By: Tommy Bowen on 02-25-2022 Basophils/100 WBC (Bld) 0.5 % . [facility] Blood hemoglobin measurement (mass/volume)Ordered By: Tommy Bowen on 02-25-2022 Hemoglobin (Bld) [Mass/Vol] 13.4 g/dL 11.8-15.4 [facility] Blood leukocytes automated c ount (number/volume)Ordered By: Tommy Bowen on 02-25-2022 WBC (Bld) [#/Vol] 8.0 10*3/uL 4.5-11.0 [facility] Creatinine and Glomerular fi ltration rate.predicted panel (S/P/Bld)Ordered By: Tommy Bowen on 02-25-2022 Creatinine [Mass/Vol] 0.75 mg/dL 0.44-1.03 [facility] Eosinophils Auto (Bld) [#/Vo l]Ordered By: Tommy Bowen on 02-25-2022 Eosinophils (Bld) [#/Vol] 0.1 10*3/uL 0.0-0.45 [facility] Eosinophils/100 WBC Auto (Bl d)Ordered By: Tommy Bowen on 02-25-2022 Eosinophils/100 WBC (Bld) 0.6 % . [facility] Erythrocyte distribution wid th Auto (RBC) [Ratio]Ordered By: Tommy Bowen on 02-25-2022 Erythrocyte distribution width (RBC) [Ratio] 14.2 % 11.9-15.3 [facility] Estimated glomerular filtrat ion rate (GFR) non- AmericanOrdered By: Tommy Bowen on 02-25-2022 GFR/1.73 sq M.predicted among non-blacks MDRD (S/P/Bld) [Vol rate/Area] > 60 mL/Min [facility] Globulin Calc (S) [Mass/Vol] Ordered By: Tommy Bowen on 02-25-2022 Globulin (S) [Mass/Vol] 3.2 g/dL [facility] Hematocrit Auto (Bld) [Volum e fraction]Ordered By: Tommy Bowen on 02-25-2022 Hematocrit (Bld) [Volume fraction] 41.0 % 34.0-46.4 [facility] Laboratory - Hematology and Cell countsOrdered By: Tommy Bowen on 02-25-2022 Nucleated RBC/100 WBC (Bld) [Ratio] 0.0 % 0-0.5 [facility] Lymphocytes Auto (Bld) [#/Vo l]Ordered By: Tommy Bowen on 02-25-2022 Lymphocytes (Bld) [#/Vol] 2.0 10*3/uL 1.00-4.8 [facility] Lymphocytes/100 WBC Auto (Bl d)Ordered By: Tommy Bowen on 02-25-2022 Lymphocytes/100 WBC (Bld) 25.6 % . [facility] MCH Auto (RBC) [Entitic mass ]Ordered By: Tommy Bowen on 02-25-2022 MCH (RBC) [Entitic mass] 28.7 pg 24.7-34.3 [facility] MCHC Auto (RBC) [Mass/Vol]Or dered By: Tommy Bowen on 02-25-2022 MCHC (RBC) [Mass/Vol] 32.7 g/dL 32.0-35.0 [facility] MCV Auto (RBC) [Entitic vol] Ordered By: Tommy Bowen on 02-25-2022 MCV (RBC) [Entitic vol] 87.8 fL 80-100 [facility] Monocytes Auto (Bld) [#/Vol] Ordered By: Tommy Bowen on 02-25-2022 Monocytes (Bld) [#/Vol] 0.6 10*3/uL 0.0-0.8 [facility] Monocytes/100 WBC Auto (Bld) Ordered By: Tommy Bowen on 02-25-2022 Monocytes/100 WBC (Bld) 7.4 % . [facility] Neutrophils Auto (Bld) [#/Vo l]Ordered By: Tommy Bowen on 02-25-2022 Neutrophils (Bld) [#/Vol] 5.2 10*3/uL 1.8-7.7 [facility] Neutrophils/100 WBC Auto (Bl d)Ordered By: Tommy Bowen on 02-25-2022 Neutrophils/100 WBC (Bld) 65.9 % . [facility] No Panel InformationOrdered By: Tommy Bowen on 02-25-2022 Estimated GFR () > 60 mL/Min [facility] Comment on above: GFR estimated refere nce range: According to KDOQI guidelines, <60 ml/min/1.73m2 is sufficient to diagnose a patient with chronic kidney disease. Pharmacy Creatinine Clearance (Chem 94.82 [facility] Platelet mean volume Auto (B ld) [Entitic vol]Ordered By: Tommy Bowen on 02-25-2022 Platelet mean volume (Bld) [Entitic vol] 8.1 fL 6.3-10.7 [facility] Platelets Auto (Bld) [#/Vol] Ordered By: Tommy Bowen on 02-25-2022 Platelets (Bld) [#/Vol] 260 10*3/uL 150-450 [facility] Protein [Mass/volume] in Ser um or PlasmaOrdered By: Tommy Bwoen on 02-25-2022 Protein [Mass/Vol] 7.3 g/dL 6.1-7.9 [facility] RBC Auto (Bld) [#/Vol]Ordere d By: Tommy Bowen on 02-25-2022 RBC (Bld) [#/Vol] 4.67 10*6/uL 3.60-5.00 [facility] Serum or plasma alanine white otransferase measurement without P-5'-P (enzymatic activiOrdered By: Tommy Bowen on 02-25-2022 ALT No additional P-5'-P [Catalytic activity/Vol] 11 U/L 10-60 [facility] Serum or plasma albumin/glob ulin mass ratioOrdered By: Tommy Bowen on 02-25-2022 Albumin/Globulin [Mass ratio] 1.3 {ratio} [facility] Serum or plasma alkaline ignacio sphatase measurement (enzymatic activity/volume)Ordered By: Tommy Bowen on 02-25-2022 ALP [Catalytic activity/Vol] 52 U/L 32-92 [facility] Serum or plasma anion gap de terminationOrdered By: Tommy Bowen on 02-25-2022 Anion gap [Moles/Vol] 13.5 mmol/L 6.0-15.0 [facility] Serum or plasma aspartate am inotransferase measurement (enzymatic activity/volume)Ordered By: Tommy Bowen on 02-25-2022 AST [Catalytic activity/Vol] 18 U/L 10-42 [facility] Serum or plasma calcium randi urement (mass/volume)Ordered By: Tommy Bowen on 02-25-2022 Calcium [Mass/Vol] 9.6 mg/dL 8.2-10.2 [facility] Serum or plasma chloride melonie surement (moles/volume)Ordered By: Tommy Bowen on 02-25-2022 Chloride [Moles/Vol] 101 mmol/L 95-114 [facility] Serum or plasma glucose randi urement (mass/volume)Ordered By: Tommy Bowen on 02-25-2022 Glucose [Mass/Vol] 98 mg/dL 70-100 [facility] Comment on above: ADA recommended refe rence range Random Glucose Reference Range is dependent on time and content of last meal. Glucose of more than 200 mg/dL in a nonstressed, ambulatory subject supports the diagnosis of Diabetes Mellitus. ADA recommended refe rence rangeRandom Glucose Reference Range is dependent on time and content of last meal. Glucose of more than 200 mg/dL in a nonstressed, ambulatory subject supports the diagnosis of Diabetes Mellitus. Serum or plasma potassium me asurement (moles/volume)Ordered By: Tommy Bowen on 02-25-2022 Potassium [Moles/Vol] 4.0 mmol/L 3.5-5.1 [facility] Serum or plasma sodium measu rement (moles/volume)Ordered By: Tommy Bowen on 02-25-2022 Sodium [Moles/Vol] 139 mmol/L 136-146 [facility] Serum or plasma total biliru bin measurement (mass/volume)Ordered By: Tommy Bowen on 02-25-2022 Bilirubin [Mass/Vol] 0.6 mg/dL 0.3-1.2 [facility] Serum or plasma total carbon dioxide measurement (moles/volume)Ordered By: Tommy Bowen on 02-25-2022 CO2 [Moles/Vol] 28.5 mmol/L 22.0-30.0 [facility] Serum or plasma urea nitroge n measurement (mass/volume)Ordered By: Tommy Bowen on 02-25-2022 Urea nitrogen [Mass/Vol] 7 mg/dL 9-23 [facility] CBC AUTO DIFFon 01-03-2022 BASO # 0.0 103/ul Normal 0.0-0.1 [facility] Comment on above: Performed By: #### C BC #### [facility] [address], [place] [address] Dr. Jovanni Maya Basophils/100 WBC (Bld) 0.2 % Normal 0.2-2.0 [facility] Comment on above: Performed By: #### C BC #### [facility] [address], [place] [address] Dr. Jovanni Maya EO # 0.0 103/ul Normal 0.0-0.7 [facility] Comment on above: Performed By: #### C BC #### [facility] [address] [place] [address] Dr. Jovanni Maya Eosinophils/100 WBC (Bld) 0.1 % Critically low 0.9-7.0 [facility] Comment on above: Performed By: #### C BC #### [facility] [address] [place] [address] Dr. Jovanni Maya Erythrocyte distribution width (RBC) [Ratio] 12.4 % Normal 11.0-15.0 [facility] Comment on above: Performed By: #### C BC #### [facility] [address] [place] [address] Dr. Jovanni Maya Hematocrit (Bld) [Volume fraction] 39.2 % Normal 36.0-48.0 [facility] Comment on above: Performed By: #### C BC #### [facility] [address] [place] [address] Dr. Jovanni Maya Hemoglobin (Bld) [Mass/Vol] 13.1 g/dL Normal 12.0-16.0 [facility] Comment on above: Performed By: #### C BC #### [facility] [address] [place] [address] Dr. Jovanni Maya IG # 0.05 10e3/ul Critically high 0.00-0.03 [facility] Comment on above: Performed By: #### C BC #### [facility] [address] [place] [address] Dr. Jovanni Maya IG % 0.3 % Normal 0.0-0.5 [facility] Comment on above: Performed By: #### C BC #### [facility] [address] [place] [address] Dr. Jovanni Maya LYMPH # 2.1 103/ul Normal 1.2-3.8 [facility] Comment on above: Performed By: #### C BC #### [facility] [address] [place] [address] Dr. Jovanni Maya Lymphocytes/100 WBC (Bld) 14.3 % Critically low 20.5-60.0 [facility] Comment on above: Performed By: #### C BC #### [facility] [address] [place] [address] Dr. Jovanni Maya MANUAL DIFF REQ NO Normal [facility] Comment on above: Performed By: #### C BC #### [facility] [address] [place] [address] Dr. Jovanni Maya MCH (RBC) [Entitic mass] 29.4 pg Normal 26.7-34.0 [facility] Comment on above: Performed By: #### C BC #### [facility] [address] [place] [address] Dr. Jovanni Maya MCHC (RBC) [Mass/Vol] 33.4 g/dL Normal 29.9-35.2 [facility] Comment on above: Performed By: #### C BC #### [facility] [address] [place] [address] Dr. Jovanni Maya MCV (RBC) [Entitic vol] 87.9 fL Normal 81.0-99.0 [facility] Comment on above: Performed By: #### C BC #### [facility] [address] [place] [address] Dr. Jovanni Maya MONO # 1.3 103/ul Critically high 0.3-0.8 [facility] Comment on above: Performed By: #### C BC #### [facility] [address] [place] [address] Dr. Jovanni Maya Monocytes/100 WBC (Bld) 8.4 % Normal 1.7-12.0 [facility] Comment on above: Performed By: #### C BC #### [facility] [address] [place] [address] Dr. Jovanni Maya NEUT # 11.4 103/ul Critically high 1.4-6.5 [facility] Comment on above: Performed By: #### C BC #### [facility] [address] [place] [address] Dr. Jovanni Maya Neutrophils/100 WBC (Bld) 76.7 % Critically high 43.0-75.0 [facility] Comment on above: Performed By: #### C BC #### [facility] [address] [place] [address] Dr. Jovanni Maya Platelet mean volume (Bld) [Entitic vol] 9.4 fL Critically low 9.5-13.5 [facility] Comment on above: Performed By: #### C BC #### [facility] [address] [place] [address] Dr. Jovanni Maya PLT 276 103/ul Normal 150-450 [facility] Comment on above: Performed By: #### C BC #### [facility] [address] [place] [address] Dr. Jovanni Maya RBC 4.46 106/ul Normal 4.20-5.40 [facility] Comment on above: Performed By: #### C BC #### [facility] [address] [place] [address] Dr. Jovanni Maya WBC 14.9 103/ul Critically high 4.0-11.0 [facility] Comment on above: Performed By: #### C BC #### [facility] [address] [place] [address] Dr. Jovanni Maya PROF CHEM 8 (BAS METB)on Anion gap [Moles/Vol] 14.2 mmol/L Normal [facility] Comment on above: Performed By: #### P REG, ACETON #### [facility] [address] [place] [address] Dr. Jovanni Maya Calcium [Mass/Vol] 9.3 mg/dL Normal 8.5-10.1 [facility] Comment on above: Performed By: #### P REG, ACETON #### [facility] [address] [place] [address] Dr. Jovanni Maya Chloride [Moles/Vol] 103 mmol/L Normal 98-107 [facility] Comment on above: Performed By: #### P REG, ACETON #### [facility] [address] [place] [address] Dr. Jovanni Maya CO2 [Moles/Vol] 26.6 mmol/L Normal 21.0-32.0 [facility] Comment on above: Performed By: #### P REG, ACETON #### [facility] [address] [place] [address] [address] Jovanni Maya Creatinine [Mass/Vol] 0.80 mg/dL Normal 0.55-1.02 [facility] Comment on above: Performed By: #### P REG, ACETON #### [facility] [address] [address] [address] Jovanni Maya EGFR-AF PAKISTANI >60 Normal >=60 [facility] Comment on above: Performed By: #### P REG, ACETON #### [facility] [address] [address] [address] Jovanni Maya EGFR-NON AF PAKISTANI >60 Normal >=60 [facility] Comment on above: Performed By: #### P REG, ACETON #### [facility] [address] [address] [address] Jovanni Maya Glucose [Mass/Vol] 118 mg/dL Critically high 74-106 [facility] Comment on above: Performed By: #### P REG, ACETON #### [facility] [address] [address] [address] Jovanni Maya Potassium [Moles/Vol] 3.8 mmol/L Normal 3.5-5.1 [facility] Comment on above: Performed By: #### P REG, ACETON #### [facility] [address] [address] [address] Jovanni Maya Sodium [Moles/Vol] 140 mmol/L Normal 136-145 [facility] Comment on above: Performed By: #### P REG, ACETON #### [facility] [address] [address] [address] Jovanni Maya Urea nitrogen [Mass/Vol] 12.0 mg/dL Normal 7.0-18.0 [facility] Comment on above: Performed By: #### P REG, ACETON #### [facility] [address] [address] [address] Jovanni Maya Urea nitrogen/Creatinine [Mass ratio] 15.0 mg/mg Normal [facility] Comment on above: Performed By: #### P REG, ACETON #### [facility] [address] [place] [address] Dr. Jovanni Maya XR CHEST 2 Von 01-03-2022 XR CHEST 2 V XR CHEST 2 V 11:17 PM EDT CLINICAL INDICATION: Chest pain and cough COMPARISON: 07/25/2021 TECHNIQUE: PA and lateral views of the chest. FINDINGS: There are no tubes or implants noted. The cardiomediastinal silhouette and pulmonary vasculature are within normal limits. The lungs are clear. No pneumothorax or pleural effusion. Osseous structures and soft tissues are within normal limits. IMPRESSION: No acute cardiopulmonary abnormality. Electronically authenticated by: FRED COLE Date: 2022-01-03 01:30 Normal [facility] CBC AUTO DIFFon 11-29-2021 BASO # 0.0 103/ul Normal 0.0-0.1 [facility] Comment on above: Performed By: #### C DANIEL HSTROPN #### [facility] [address] [place] [address] Dr. Jovanni Maya Basophils/100 WBC (Bld) 0.2 % Normal 0.2-2.0 [facility] Comment on above: Performed By: #### C DANIEL HSTROPN #### [facility] [address] [place] [address] Dr. Jovanni Maya EO # 0.2 103/ul Normal 0.0-0.7 [facility] Comment on above: Performed By: #### C DANIEL HSTROPN #### [facility] [address] [place] [address] Dr. Jovanni Maya Eosinophils/100 WBC (Bld) 3.2 % Normal 0.9-7.0 [facility] Comment on above: Performed By: #### C DANIEL HSTROPN #### [facility] [address] [place] [address] Dr. Jovanni Maya Erythrocyte distribution width (RBC) [Ratio] 12.2 % Normal 11.0-15.0 [facility] Comment on above: Performed By: #### C DANIEL HSTROPN #### [facility] [address] [place] [address] Dr. Jovanni Maya Hematocrit (Bld) [Volume fraction] 34.3 % Critically low 36.0-48.0 [facility] Comment on above: Performed By: #### C MP, HSTROPN #### [facility] [address] [place] [address] Dr. Jovanni Maya Hemoglobin (Bld) [Mass/Vol] 11.4 g/dL Critically low 12.0-16.0 [facility] Comment on above: Performed By: #### C MP, HSTROPN #### [facility] [address] [place] [address] Dr. Jovanni Maya IG # 0.01 10e3/ul Normal 0.00-0.03 [facility] Comment on above: Performed By: #### C MP, HSTROPN #### [facility] [address] [place] [address] Dr. Jovanni Maya IG % 0.2 % Normal 0.0-0.5 [facility] Comment on above: Performed By: #### C MP, HSTROPN #### [facility] [address] [place] [address] Dr. Jovanni Maya LYMPH # 2.5 103/ul Normal 1.2-3.8 [facility] Comment on above: Performed By: #### C MP, HSTROPN #### [facility] [address] [place] [address] Dr. Jovanni Maya Lymphocytes/100 WBC (Bld) 38.1 % Normal 20.5-60.0 [facility] Comment on above: Performed By: #### C MP, HSTROPN #### [facility] [address] [place] [address] Dr. Jovanni Maya MANUAL DIFF REQ NO Normal [facility] Comment on above: Performed By: #### C MP, HSTROPN #### [facility] [address] [place] [address] Dr. Jovanni Maya MCH (RBC) [Entitic mass] 29.6 pg Normal 26.7-34.0 [facility] Comment on above: Performed By: #### C MP, HSTROPN #### [facility] [address] [place] [address] Dr. Jovanni Maya MCHC (RBC) [Mass/Vol] 33.2 g/dL Normal 29.9-35.2 [facility] Comment on above: Performed By: #### C MP, HSTROPN #### [facility] [address] [place] [address] Dr. Jovanni Maya MCV (RBC) [Entitic vol] 89.1 fL Normal 81.0-99.0 [facility] Comment on above: Performed By: #### C MP, HSTROPN #### [facility] [address] [place] [address] Dr. Jovanni Maya MONO # 0.7 103/ul Normal 0.3-0.8 [facility] Comment on above: Performed By: #### C MP, HSTROPN #### [facility] [address] [place] [address] Dr. Jovanni Maya Monocytes/100 WBC (Bld) 10.2 % Normal 1.7-12.0 [facility] Comment on above: Performed By: #### C DANIEL, HSTROPN #### [facility] [address] [place] [address] Dr. Jovanni Maya NEUT # 3.2 103/ul Normal 1.4-6.5 [facility] Comment on above: Performed By: #### C MP, HSTROPN #### [facility] [address] [place] [address] Dr. Jovanni Maya Neutrophils/100 WBC (Bld) 48.1 % Normal 43.0-75.0 [facility] Comment on above: Performed By: #### C MP, HSTROPN #### [facility] [address] [place] [address] Dr. Jovanni Maya Platelet mean volume (Bld) [Entitic vol] 9.8 fL Normal 9.5-13.5 [facility] Comment on above: Performed By: #### C MP, HSTROPN #### [facility] [address] [address] [address] Jovanni Maya PLT 222 103/ul Normal 150-450 [facility] Comment on above: Performed By: #### C MP, HSTROPN #### [facility] [address] [place] [address] Dr. Jovanni Maya RBC 3.85 106/ul Critically low 4.20-5.40 [facility] Comment on above: Performed By: #### C MP, HSTROPN #### [facility] [address] [place] [address] Dr. Jovanni Maya WBC 6.5 103/ul Normal 4.0-11.0 [facility] Comment on above: Performed By: #### C DANIEL, HSTROPN #### [facility] [address] [place] [address] Dr. Jovanni Maya CULTURE URINEon 11-29-2021 CULTURE URINE Culture Observations : LIGHT GROWTH OF MIXED GENITAL ZANDER. NO POTENTIAL PATHOGENS SEEN. Normal [facility] Comment on above: Performed By: #### C DANIEL, HSTROPN #### [facility] [address] [place] [address] Dr. Jovanni Maya DRUG SCREEN RAPID (URINE)on 11-29-2021 AMP Negative Normal NEGATIVE [facility] Comment on above: Performed By: #### P REG, ACETON #### [facility] [address] [place] [address] Dr. Jovanni Maya BAR Negative Normal NEGATIVE [facility] Comment on above: Performed By: #### P REG, ACETON #### [facility] [address] [place] [address] Dr. Jovanni Maya BUP Negative Normal NEGATIVE [facility] Comment on above: Performed By: #### P REG, ACETON #### [facility] [address] [place] [address] Dr. Jovanni Maya BZO Positive Abnormal NEGATIVE [facility] Comment on above: Performed By: #### P REG, ACETON #### [facility] [address] [place] [address] Dr. Jovanni Maya DARIEN Negative Normal NEGATIVE [facility] Comment on above: Performed By: #### P REG, ACETON #### [facility] [address] [place] [address] Dr. Jovanni Maya CUT-OFFS SEE BELOW Normal [facility] Comment on above: Result Comment: AMP (Amphetamine): 500ng/mL, BAR (Barbituates): 200 ng/mL, BZO (Benzodiazepines): 150 ng/mL, BUP (Buprenorphine): 10 ng/mL, DARIEN (Cocaine): 150 ng/mL, mAMP (Methamphetamine): 500 ng/mL, MTD (Methadone): 200 ng/mL, OPI (Opiates): 100 ng/mL, OXY (Oxycodone): 100 ng/mL, PCP (Phencyclidine): 25 ng/mL, PPX (Propoxyphene): 300 ng/mL, THC (Cannabinoids): 50 ng/mL, TCA (Trycyclic Antidepressants): 300 ng/mL Performed By: #### P REG, ACETON #### [facility] [address] [place] [address] Dr. Jovanni Maya DRUG CUT HEADER DRUG CLASS TEST SYST EM CUT-OFF CONCENTRATIONS ARE FOLLOWS: Normal [facility] Comment on above: Performed By: #### P REG, ACETON #### [facility] [address] [place] [address] Dr. Jovanni Maya mAMP Negative Normal NEGATIVE [facility] Comment on above: Performed By: #### P REG, ACETON #### [facility] [address] [place] [address] Dr. Jovanni Maya MTD Negative Normal NEGATIVE [facility] Comment on above: Performed By: #### P REG, ACETON #### [facility] [address] [place] [address] Dr. Jovanni Maya OPI Negative Normal NEGATIVE [facility] Comment on above: Performed By: #### P REG, ACETON #### [facility] [address] [place] [address] Dr. Jovanni Maya OXY Positive Abnormal NEGATIVE [facility] Comment on above: Performed By: #### P REG, ACETON #### [facility] [address] [place] [address] Dr. Jovanni Maya PCP Negative Normal NEGATIVE [facility] Comment on above: Performed By: #### P REG, ACETON #### [facility] [address] [place] [address] Dr. Jovanni Maya PPX Negative Normal NEGATIVE [facility] Comment on above: Performed By: #### P REG, ACETON #### [facility] [address] [address] [address] Jovanni Maya TCA Negative Normal NEGATIVE [facility] Comment on above: Performed By: #### P REG, ACETON #### [facility] [address] [place] [address] Dr. Jovanni Maya THC Positive Abnormal NEGATIVE [facility] Comment on above: Performed By: #### P REG, ACETON #### [facility] [address] [place] [address] Dr. Jovanni Maya ER URINE PROFILEon 2 Bilirubin Ql (U) SMALL Abnormal NEGATIVE [facility] Comment on above: Performed By: #### P REG, ACETON #### [facility] [address] [place] [address] Dr. Jovanni Maya Clarity (U) CLEAR Normal CLEAR [facility] Comment on above: Performed By: #### P REG, ACETON #### [facility] [address] [place] [address] Dr. Jovanni Maya Color (U) BROWN Abnormal YELLOW [facility] Comment on above: Performed By: #### P REG, ACETON #### [facility] [address] [place] [address] Dr. Jovanni Maya ERUAHD A micrscopic examina tion will be performed if indicated. Normal [facility] Comment on above: Performed By: #### P REG, ACETON #### [facility] [address] [place] [address] Dr. Jovanni Maya Glucose Ql (U) Negative Normal NEGATIVE [facility] Comment on above: Performed By: #### P REG, ACETON #### [facility] [address] [place] [address] Dr. Jovanni Maya Hemoglobin Ql (U) LARGE Abnormal NEGATIVE [facility] Comment on above: Performed By: #### P REG, ACETON #### [facility] [address] [place] [address] Dr. Jovanni Maya Ketones Ql (U) Negative Normal NEGATIVE [facility] Comment on above: Performed By: #### P REG, ACETON #### [facility] [address] [place] [address] Dr. Jovanni Maya LEUKOCYTES MODERATE Abnormal NEGATIVE [facility] Comment on above: Performed By: #### P REG, ACETON #### [facility] [address] [place] [address] Dr. Jovanni Maya Nitrite Ql (U) Negative Normal NEGATIVE [facility] Comment on above: Performed By: #### P REG, ACETON #### [facility] [address] [place] [address] Dr. Jovanni Maya pH (U) 6.0 [pH] Normal 5-9 [facility] Comment on above: Performed By: #### P REG, ACETON #### [facility] [address] [place] [address] Dr. Jovanni Maya Protein (U) [Mass/Vol] 100 mg/dL Abnormal NEGATIVE/ TRACE [facility] Comment on above: Performed By: #### P REG, ACETON #### [facility] [address] [place] [address] Dr. Jovanni Maya SPEC GRAVITY 1.025 Normal 1.005-<=1.[address] [place] [address] Comment on above: Performed By: #### P REG, ACETON #### [facility] [address] [place] [address] Dr. Jovanni Maya UR MICRO IND INDICATED Normal [facility] Comment on above: Performed By: #### P REG, ACETON #### [facility] [address] [place] [address] Dr. Jovanni Maya Urobilinogen Qn (U) 1.0 {Carlos A'U}/dL Normal 0.2 - 1. 0 [facility] Comment on above: Performed By: #### P REG, ACETON #### [facility] [address] [address] [address] Jovanni Maya LACTATE/LACTIC ACIDon 2021 Lactate [Moles/Vol] 1.2 mmol/L Normal 0.4-1.9 [facility] Comment on above: Performed By: #### L ACT #### [facility] [address] [place] [address] Dr. Jovanni Maya URon 11-29-2021 , QUAL Negative Normal NEGATIVE [facility] Comment on above: Performed By: #### P REG, ACETON #### [facility] [address] [place] [address] Dr. Jovanni Maya PROF CHEM 8 (BAS METB)on Anion gap [Moles/Vol] 11.0 mmol/L Normal [facility] Comment on above: Performed By: #### C MP, HSTROPN #### [facility] [address] [place] [address] Dr. Jovanni Maya Calcium [Mass/Vol] 8.7 mg/dL Normal 8.5-10.1 [facility] Comment on above: Performed By: #### C MP, HSTROPN #### [facility] [address] [address] [address] Jovanni Maya Chloride [Moles/Vol] 105 mmol/L Normal 98-107 [facility] Comment on above: Performed By: #### C MP, HSTROPN #### [facility] [address] [address] [address] Jovanni Maya CO2 [Moles/Vol] 27.5 mmol/L Normal 21.0-32.0 [facility] Comment on above: Performed By: #### C MP, HSTROPN #### [facility] [address] [place] [address] Dr. Jovanni Maya Creatinine [Mass/Vol] 0.84 mg/dL Normal 0.55-1.02 [facility] Comment on above: Performed By: #### C MP, HSTROPN #### [facility] [address] [place], [place] [id number] Dr. Jovanni Maya EGFR-AF PAKISTANI >60 Normal >=60 [facility] Comment on above: Performed By: #### C DANIEL, HSTROPN #### [facility] [address] [address] [address] Jovanni Maya EGFR-NON AF PAKISTANI >60 Normal >=60 [facility] Comment on above: Performed By: #### C DANIEL, HSTROPN #### [facility] [address] [address] [address] Jovanni Maya Glucose [Mass/Vol] 103 mg/dL Normal 74-106 [facility] Comment on above: Performed By: #### C DANIEL, HSTROPN #### [facility] [address] [place] [address] Dr. Jovanni Maya Potassium [Moles/Vol] 3.5 mmol/L Normal 3.5-5.1 [facility] Comment on above: Performed By: #### C DANIEL, HSTROPN #### [facility] [address] [place] [address] Dr. Jovanni Maya Sodium [Moles/Vol] 140 mmol/L Normal 136-145 [facility] Comment on above: Performed By: #### C DANIEL, HSTROPN #### [facility] [address] [place] [address] Dr. Jovanni Maya Urea nitrogen [Mass/Vol] 12.0 mg/dL Normal 7.0-18.0 [facility] Comment on above: Performed By: #### C DANIEL, HSTROPN #### [facility] [address] [place] [address] Dr. Jovanni Maya Urea nitrogen/Creatinine [Mass ratio] 14.3 mg/mg Normal [facility] Comment on above: Performed By: #### C DANIEL, HSTROPN #### [facility] [address] [place] [address] Dr. Jovanni Maya URINE MICROSCOPIC ONLYon BACTERIA TRACE Abnormal NONE SEEN [facility] Comment on above: Performed By: #### P REG, ACETON #### [facility] [address] [place] [address] Dr. Jovanni Maya Bacteria identified Cx Nom (U) INDICATED Normal [facility] Comment on above: Performed By: #### P REG, ACETON #### [facility] [address] [place] [address] Dr. Jovanni Maya CA OX CRYSTALS RARE Normal [facility] Comment on above: Performed By: #### P REG, ACETON #### [facility] [address] [place] [address] Dr. Jovanni Maya CAST SEEN Abnormal NONE SEEN [facility] Comment on above: Performed By: #### P REG, ACETON #### [facility] [address] [place] [address] Dr. Jovanni Maya Crystals LM Nom (Urine sed) SEEN Abnormal NONE SEEN [facility] Comment on above: Performed By: #### P REG, ACETON #### [facility] [address] [place] [address] Dr. Jovanni Maya Epithelial cells LM Ql (Urine sed) FEW Abnormal NONE SEEN /RARE [facility] Comment on above: Performed By: #### P REG, ACETON #### [facility] [address] [place] [address] Dr. Jovanni Maya HYALINE CAST RARE Normal [facility] Comment on above: Performed By: #### P REG, ACETON #### [facility] [address] [place] [address] Dr. Jovanni Maya MUCOUS SMALL Abnormal NONE SEEN [facility] Comment on above: Performed By: #### P REG, ACETON #### [facility] [address] [place] [address] Dr. Jovanni Maya RBC 20-50 Abnormal 0-2 [facility] Comment on above: Performed By: #### P REG, ACETON #### [facility] [address] [place] [address] Dr. Jovanni Maya WBC 5-10 Abnormal NONE SEEN [facility] Comment on above: Performed By: #### P REG, ACETON #### [facility] [address] [place] [address] Dr. Jovanni Maya CBC AUTO DIFFon 04-22-2022 BASO # 0.0 103/ul Normal 0.0-0.1 [facility] Comment on above: Performed By: #### P REG, ACETON #### [facility] [address] [place] [address] Dr. Jovanni Maya Basophils/100 WBC (Bld) 0.2 % Normal 0.2-2.0 [facility] Comment on above: Performed By: #### P REG, ACETON #### [facility] [address] [place] [address] Dr. Jovanni Maya EO # 0.1 103/ul Normal 0.0-0.7 [facility] Comment on above: Performed By: #### P REG, ACETON #### [facility] [address] [place] [address] Dr. Jovanni Maya Eosinophils/100 WBC (Bld) 0.8 % Critically low 0.9-7.0 [facility] Comment on above: Performed By: #### P REG, ACETON #### [facility] [address] [place] [address] Dr. Jovanni Maya Erythrocyte distribution width (RBC) [Ratio] 12.2 % Normal 11.0-15.0 [facility] Comment on above: Performed By: #### P REG, ACETON #### [facility] [address] [place] [address] Dr. Jovanni Maya Hematocrit (Bld) [Volume fraction] 42.4 % Normal 36.0-48.0 [facility] Comment on above: Performed By: #### P REG, ACETON #### [facility] [address] [place] [address] Dr. Jovanni Maya Hemoglobin (Bld) [Mass/Vol] 14.5 g/dL Normal 12.0-16.0 [facility] Comment on above: Performed By: #### P REG, ACETON #### [facility] [address] [place] [address] Dr. Jovanni Maya IG # 0.04 10e3/ul Critically high 0.00-0.03 [facility] Comment on above: Performed By: #### P REG, ACETON #### [facility] [address] [address] [address] Jovanni Maya IG % 0.5 % Normal 0.0-0.5 [facility] Comment on above: Performed By: #### P REG, ACETON #### [facility] [address] [address] [address] Jovanni Maya LYMPH # 2.8 103/ul Normal 1.2-3.8 [facility] Comment on above: Performed By: #### P REG, ACETON #### [facility] [address] [address] [address] Jovanni Maya Lymphocytes/100 WBC (Bld) 31.8 % Normal 20.5-60.0 [facility] Comment on above: Performed By: #### P REG, ACETON #### [facility] [address] [place] [address] Dr. Jovanni Maya MANUAL DIFF REQ NO Normal [facility] Comment on above: Performed By: #### P REG, ACETON #### [facility] [address] [address] [address] Jovanni Maya MCH (RBC) [Entitic mass] 29.8 pg Normal 26.7-34.0 [facility] Comment on above: Performed By: #### P REG, ACETON #### [facility] [address] [place] [address] Dr. Jovanni Maya MCHC (RBC) [Mass/Vol] 34.2 g/dL Normal 29.9-35.2 [facility] Comment on above: Performed By: #### P REG, ACETON #### [facility] [address] [address] [address] Jovanni Maya MCV (RBC) [Entitic vol] 87.1 fL Normal 81.0-99.0 [facility] Comment on above: Performed By: #### P REG, ACETON #### [facility] [address] [place] [address] Dr. Jovanni Maya MONO # 0.6 103/ul Normal 0.3-0.8 [facility] Comment on above: Performed By: #### P REG, ACETON #### [facility] [address] [place] [address] Dr. Jovanni Maya Monocytes/100 WBC (Bld) 7.1 % Normal 1.7-12.0 [facility] Comment on above: Performed By: #### P REG, ACETON #### [facility] [address] [place] [address] Dr. Jovanni Maya NEUT # 5.2 103/ul Normal 1.4-6.5 [facility] Comment on above: Performed By: #### P REG, ACETON #### [facility] [address] [place] [address] Dr. Jovanni Maya Neutrophils/100 WBC (Bld) 59.6 % Normal 43.0-75.0 [facility] Comment on above: Performed By: #### P REG, ACETON #### [facility] [address] [place] [address] Dr. Jovanni Maya Platelet mean volume (Bld) [Entitic vol] 9.2 fL Critically low 9.5-13.5 [facility] Comment on above: Performed By: #### P REG, ACETON #### [facility] [address] [place] [address] Dr. Jovanni Maya PLT 301 103/ul Normal 150-450 [facility] Comment on above: Performed By: #### P REG, ACETON #### [facility] [address] [place] [address] Dr. Jovanni Maya RBC 4.87 106/ul Normal 4.20-5.40 [facility] Comment on above: Performed By: #### P REG, ACETON #### [facility] [address] [place] [address] Dr. Jovanni Maya WBC 8.7 103/ul Normal 4.0-11.0 [facility] Comment on above: Performed By: #### P REG, ACETON #### [facility] [address] [place] [address] Dr. Jovanni Maya CULTURE URINEon 10-16-2021 CULTURE URINE Culture Observations : LIGHT GROWTH OF MIXED GENITAL ZANDER. NO POTENTIAL PATHOGENS SEEN. Normal The [facility] Comment on above: Performed By: #### C MP, HSTROPN #### [facility] [address] [place] [address] Dr. Jovanni Maya ER URINE PROFILEon 2 Bilirubin Ql (U) Negative Normal NEGATIVE [facility] Comment on above: Performed By: #### P REG, ACETON #### [facility] [address] [place] [address] Dr. Jovanni Maya Clarity (U) CLEAR Normal CLEAR [facility] Comment on above: Performed By: #### P REG, ACETON #### [facility] [address] [place] [address] Dr. Jovanni Maya Color (U) LT. YELLOW Normal YELLOW [facility] Comment on above: Performed By: #### P REG, ACETON #### [facility] [address] [place] [address] Dr. Jovanni Maya ERUAHD A micrscopic examina tion will be performed if indicated. Normal [facility] Comment on above: Performed By: #### P REG, ACETON #### [facility] [address] [place] [address] Dr. Jovanni Maya Glucose Ql (U) Negative Normal NEGATIVE The [facility] Comment on above: Performed By: #### P REG, ACETON #### [facility] [address] [place] [address] Dr. Jovanni Maya Hemoglobin Ql (U) LARGE Abnormal NEGATIVE The [facility] Comment on above: Performed By: #### P REG, ACETON #### [facility] [address] [place] [address] Dr. Jovanni Maya Ketones Ql (U) TRACE Abnormal NEGATIVE The [facility] Comment on above: Performed By: #### P REG, ACETON #### [facility] [address] [place] [address] Dr. Jovanni Maya LEUKOCYTES MODERATE Abnormal NEGATIVE The [facility] Comment on above: Performed By: #### P REG, ACETON #### [facility] [address] [place] [address] Dr. Jovanni Maya Nitrite Ql (U) Negative Normal NEGATIVE [facility] Comment on above: Performed By: #### P REG, ACETON #### [facility] [address] [place] [address] Dr. Jovanni Maya pH (U) [pH] Abnormal 5-9 [facility] Comment on above: Performed By: #### P REG, ACETON #### [facility] [address] [place] [address] Dr. Jovanni Maya Protein (U) [Mass/Vol] 100 mg/dL Abnormal NEGATIVE/ TRACE The [facility] Comment on above: Performed By: #### P REG, ACETON #### [facility] [address] [place] [address] Dr. Jovanni Maya SPEC GRAVITY 1.015 Normal 1.005-<=1.0 25 [facility] Comment on above: Performed By: #### P REG, ACETON #### [facility] [address] [place] [address] Dr. Jovanni Maya UR MICRO IND INDICATED Normal [facility] Comment on above: Performed By: #### P REG, ACETON #### [facility] [address] [place] [address] Dr. Jovanni Maya Urobilinogen Qn (U) 1.0 {Carlos A'U}/dL Normal 0.2 - 1. 0 [facility] Comment on above: Performed By: #### P REG, ACETON #### [facility] [address] [place] [address] Dr. Jovanni Maya LIPASEon 10-16-2021 Lipase [Catalytic activity/Vol] 85.0 U/L Normal 23.0-300.0 [facility] Comment on above: Performed By: #### P REG, ACETON #### [facility] [address] [place] [address] Dr. Jovanni Maya URon 10-16-2021 , QUAL Negative Normal NEGATIVE The [facility] Comment on above: Performed By: #### P REG, ACETON #### [facility] [address] [place] [address] Dr. Jovanni Maay PROF 14(COMP METB)on 022 Albumin [Mass/Vol] 4.4 g/dL Normal 3.4-5.0 [facility] Comment on above: Performed By: #### P REG, ACETON #### [facility] [address] [address] [address] Jovanni Maya Albumin/Globulin [Mass ratio] 1.2 {ratio} Normal [facility] Comment on above: Performed By: #### P REG, ACETON #### [facility] [address] [address] [address] Jovanni Maya ALP [Catalytic activity/Vol] 66 U/L Normal 46-116 [facility] Comment on above: Performed By: #### P REG, ACETON #### [facility] [address] [address] [address] Jovanni Maya ALT [Catalytic activity/Vol] 13 U/L Critically low 14-59 [facility] Comment on above: Performed By: #### P REG, ACETON #### [facility] [address] [address] [address] Jovanni Maya Anion gap [Moles/Vol] 11.4 mmol/L Normal [facility] Comment on above: Performed By: #### P REG, ACETON #### [facility] [address] [address] [address] Jovanni Maya AST [Catalytic activity/Vol] 13 U/L Critically low 15-37 [facility] Comment on above: Performed By: #### P REG, ACETON #### [facility] [address] [address] [address] Jovanni Maya Bilirubin [Mass/Vol] 0.6 mg/dL Normal 0.2-1.3 [facility] Comment on above: Performed By: #### P REG, ACETON #### [facility] [address] [address] [address] Jovanni Maya Calcium [Mass/Vol] 8.7 mg/dL Normal 8.5-10.1 [facility] Comment on above: Performed By: #### P REG, ACETON #### [facility] [address] [address] [address] Jovanni Maya Chloride [Moles/Vol] 101 mmol/L Normal 98-107 [facility] Comment on above: Performed By: #### P REG, ACETON #### [facility] [address] [place] [address] Dr. Jovanni Maya CO2 [Moles/Vol] 27.5 mmol/L Normal 22.0-30.0 [facility] Comment on above: Performed By: #### P REG, ACETON #### [facility] [address] [place] [address] Dr. Jovanni Maya Creatinine [Mass/Vol] 0.80 mg/dL Normal 0.55-1.02 [facility] Comment on above: Performed By: #### P REG, ACETON #### [facility] [address] [place] [address] Dr. Jovanni Maya EGFR-AF PAKISTANI >60 Normal >=60 [facility] Comment on above: Performed By: #### P REG, ACETON #### [facility] [address] [place] [address] Dr. Jovanni Maya EGFR-NON AF PAKISTANI >60 Normal >=60 [facility] Comment on above: Performed By: #### P REG, ACETON #### [facility] [address] [place] [address] Dr. Jovanni Maya Globulin (S) [Mass/Vol] 3.7 g/dL Normal [facility] Comment on above: Performed By: #### P REG, ACETON #### [facility] [address] [place] [address] Dr. Jovanni Maya Glucose [Mass/Vol] 90 mg/dL Normal 74-106 [facility] Comment on above: Performed By: #### P REG, ACETON #### [facility] [address] [place] [address] Dr. Jovanni Maya Potassium [Moles/Vol] 3.9 mmol/L Normal 3.4-5.0 [facility] Comment on above: Performed By: #### P REG, ACETON #### [facility] [address] [place] [address] Dr. Jovanni Maya Protein [Mass/Vol] 8.1 g/dL Normal 6.1-8.2 [facility] Comment on above: Performed By: #### P REG, ACETON #### [facility] [address] [place] [address] Dr. Jovanni Maya Sodium [Moles/Vol] 136 mmol/L Critically low 137-145 Th e [facility] Comment on above: Performed By: #### P REG, ACETON #### [facility] [address] [place] [address] Dr. Jovanni Maya Urea nitrogen [Mass/Vol] 10.0 mg/dL Normal 7.0-18.0 [facility] Comment on above: Performed By: #### P REG, ACETON #### [facility] [address] [place] [address] Dr. Jovanni Maya Urea nitrogen/Creatinine [Mass ratio] 12.5 mg/mg Normal [facility] Comment on above: Performed By: #### P REG, ACETON #### [facility] [address] [place] [address] Dr. Jovanni Maya URINE MICROSCOPIC ONLYon BACTERIA MODERATE Abnormal NONE SEEN [facility] Comment on above: Performed By: #### P REG, ACETON #### [facility] [address] [place] [address] Dr. Jovanni Maya Bacteria identified Cx Nom (U) INDICATED Normal [facility] Comment on above: Performed By: #### P REG, ACETON #### [facility] [address] [place] [address] Dr. Jovanni Maya CA OX CRYSTALS RARE Normal [facility] Comment on above: Performed By: #### P REG, ACETON #### [facility] [address] [place] [address] Dr. Jovanni Maya CAST NONE SEEN Normal NONE SEEN [facility] Comment on above: Performed By: #### P REG, ACETON #### [facility] [address] [place] [address] Dr. Jovanni Maya Crystals LM Nom (Urine sed) SEEN Abnormal NONE SEEN [facility] Comment on above: Performed By: #### P REG, ACETON #### [facility] [address] [place] [address] Dr. Jovanni Maya Epithelial cells LM Ql (Urine sed) MODERATE Abnormal NONE SEEN /RARE The [facility] Comment on above: Performed By: #### P REG, ACETON #### [facility] [address] [place] [address] Dr. Jovanni Maya MUCOUS NONE SEEN Normal NONE SEEN [facility] Comment on above: Performed By: #### P REG, ACETON #### [facility] [address] [place] [address] Dr. Jovanni Maya RBC 50-75 Abnormal 0-2 [facility] Comment on above: Performed By: #### P REG, ACETON #### [facility] [address] [place] [address] Dr. Jovanni Maya WBC 10-20 Abnormal NONE SEEN The [facility] Comment on above: Performed By: #### P REG, ACETON #### [facility] [address] [place] [address] Dr. Jovanni Maya XR KUB 1 VIEWon 10-16-2021 XR KUB 1 VIEW EXAM: XR KUB 1 VIEW HISTORY: nausea and vomiting COMPARISON: None. TECHNIQUE: Single supine KUB performed. FINDINGS: Nonobstructive bowel gas pattern. Calcific density measuring 18 x 13 mm at the level of the right L3 transverse process. No additional calcifications are noted. No acute bony abnormality. IMPRESSION: 1. There is a large calcific density in the right upper quadrant which may project over the right kidney or gallbladder. Correlate with abdominal CT if indicated. 2. Nonobstructive bowel gas pattern. Electronically authenticated by: COSMO ALONSO Date: 2021-10-16 19:18 Normal The [facility] Activated partial thrombopla stin time (aPTT) in platelet poor plasma by coagulation aOrdered By: Roberto Segovia on 09-28-2021 aPTT Coag (PPP) [Time] 34.9 s 25.1-36.5 [facility] Albumin [Mass/volume] in Ser um or PlasmaOrdered By: Roberto Segovia on 09-28-2021 Albumin [Mass/Vol] 4.3 g/dL 3.2-5.5 [facility] Basophils Auto (Bld) [#/Vol] Ordered By: Roberto Segovia on 09-28-2021 Basophils (Bld) [#/Vol] 0.0 10*3/uL 0.0-0.2 [facility] Basophils/100 WBC Auto (Bld) Ordered By: Roberto Segovia on 09-28-2021 Basophils/100 WBC (Bld) 0.7 % [facility] Blood hemoglobin measurement (mass/volume)Ordered By: Roberto Segovia on 09-28-2021 Hemoglobin (Bld) [Mass/Vol] 14.7 g/dL 11.8-15.4 [facility] Blood leukocytes automated c ount (number/volume)Ordered By: Roberto Segovia on 09-28-2021 WBC (Bld) [#/Vol] 6.2 10*3/uL 4.5-11.0 [facility] Creatinine and Glomerular fi ltration rate.predicted panel (S/P/Bld)Ordered By: Roberto Segovia on 09-28-2021 Creatinine [Mass/Vol] 0.73 mg/dL 0.44-1.03 [facility] Direct bilirubin measurement Ordered By: Roberto Segovia on 09-28-2021 Bilirubin.direct [Mass/Vol] mg/dL 0.0-0.4 [facility] Eosinophils Auto (Bld) [#/Vo l]Ordered By: Roberto Segovia on 09-28-2021 Eosinophils (Bld) [#/Vol] 0.1 10*3/uL 0.0-0.45 [facility] Eosinophils/100 WBC Auto (Bl d)Ordered By: Roberto Segovia on 09-28-2021 Eosinophils/100 WBC (Bld) 1.8 % [facility] Erythrocyte distribution wid th Auto (RBC) [Ratio]Ordered By: Roberto Segovia on 09-28-2021 Erythrocyte distribution width (RBC) [Ratio] 13.1 % 11.9-15.3 [facility] Estimated glomerular filtrat ion rate (GFR) non- AmericanOrdered By: Roberto Segovia on 09-28-2021 GFR/1.73 sq M.predicted among non-blacks MDRD (S/P/Bld) [Vol rate/Area] > 60 mL/Min [facility] Globulin Calc (S) [Mass/Vol] Ordered By: Roberto Segovia on 09-28-2021 Globulin (S) [Mass/Vol] 3.2 g/dL [facility] Hematocrit Auto (Bld) [Volum e fraction]Ordered By: Roberto Segovia on 09-28-2021 Hematocrit (Bld) [Volume fraction] 44.2 % 34.0-46.4 [facility] - Chemistry and C hemistry - challengeOrdered By: Roberto Segovia on 09-28-2021 Lipase [Catalytic activity/Vol] 36.0 U/L 22-51 [facility] Natriuretic peptide B (Bld) [Mass/Vol] 17.0 pg/mL 5-100 [facility] - CoagulationOrde red By: Roberto Segovia on 09-28-2021 PT Coag (PPP) [Time] 12.3 s 9.0-12.9 [facility] - Hematology and Cell countsOrdered By: Roberto Segovia on 09-28-2021 Nucleated RBC/100 WBC (Bld) [Ratio] 0.0 % 0-0.5 [facility] Lymphocytes Auto (Bld) [#/Vo l]Ordered By: Roberto Segovia on 09-28-2021 Lymphocytes (Bld) [#/Vol] 2.7 10*3/uL 1.00-4.8 [facility] Lymphocytes/100 WBC Auto (Bl d)Ordered By: Roberto Segovia on 09-28-2021 Lymphocytes/100 WBC (Bld) 43.6 % [facility] MCH Auto (RBC) [Entitic mass ]Ordered By: Roberto Segovia on 09-28-2021 MCH (RBC) [Entitic mass] 29.8 pg 24.7-34.3 [facility] MCHC Auto (RBC) [Mass/Vol]Or dered By: Roberto Segovia on 09-28-2021 MCHC (RBC) [Mass/Vol] 33.2 g/dL 32.0-35.0 [facility] MCV Auto (RBC) [Entitic vol] Ordered By: Roberto Segovia on 09-28-2021 MCV (RBC) [Entitic vol] 89.6 fL 80-100 [facility] Monocytes Auto (Bld) [#/Vol] Ordered By: Roberto Segovia on 09-28-2021 Monocytes (Bld) [#/Vol] 0.4 10*3/uL 0.0-0.8 [facility] Monocytes/100 WBC Auto (Bld) Ordered By: Roberto Segovia on 09-28-2021 Monocytes/100 WBC (Bld) 6.8 % [facility] Neutrophils Auto (Bld) [#/Vo l]Ordered By: Roberto Segovia on 09-28-2021 Neutrophils (Bld) [#/Vol] 2.9 10*3/uL 1.8-7.7 [facility] Neutrophils/100 WBC Auto (Bl d)Ordered By: Roberto Segovia on 09-28-2021 Neutrophils/100 WBC (Bld) 47.1 % [facility] No Panel InformationOrdered By: Roberto Segovia on 09-28-2021 Estimated GFR () > 60 mL/Min [facility] Comment on above: GFR estimated refere nce range: According to KDOQI guidelines, <60 ml/min/1.73m2 is sufficient to diagnose a patient with chronic kidney disease. Pharmacy Creatinine Clearance (Chem 91.21 [facility] Platelet mean volume Auto (B ld) [Entitic vol]Ordered By: Roberto Segovia on 09-28-2021 Platelet mean volume (Bld) [Entitic vol] 7.7 fL 6.3-10.7 [facility] Platelet poor plasma interna tional normalized ratio (INR) by coagulation assay (relatOrdered By: Roberto Segovia on 09-28-2021 INR Coag (PPP) [Relative time] 1.1 {INR} [facility] Comment on above: INR Therapeutic Rang e A) Pre- and Peroperative OAT started two weeks before surgery. NOT HIP SURGERY: 1.5 - 2.5 HIP SURGERY: 2 - 3B) Primary and secondary prevention of venous THROMBOSIS: 2 - 3C) Active venous thrombosis, pulmonary embolismand prevention of recurrent venous thrombosis: 2 - 3D) Prevention of arterial thromboembolismincluding patients with mechanical heart valves: 3 - 4.5 Platelets Auto (Bld) [#/Vol] Ordered By: Roberto Segovia on 09-28-2021 Platelets (Bld) [#/Vol] 291 10*3/uL 150-450 [facility] Protein [Mass/volume] in Ser um or PlasmaOrdered By: Roberto Segovia on 09-28-2021 Protein [Mass/Vol] 7.5 g/dL 6.1-7.9 [facility] RBC Auto (Bld) [#/Vol]Ordere d By: Roberto Segovia on 09-28-2021 RBC (Bld) [#/Vol] 4.93 10*6/uL 3.60-5.00 [facility] Serum or plasma alanine white otransferase measurement without P-5'-P (enzymatic activiOrdered By: Roberto Segovia on 09-28-2021 ALT No additional P-5'-P [Catalytic activity/Vol] 9 U/L 10-60 [facility] Serum or plasma albumin/glob ulin mass ratioOrdered By: Roberto Segovia on 09-28-2021 Albumin/Globulin [Mass ratio] 1.3 {ratio} [facility] Serum or plasma alkaline ignacio sphatase measurement (enzymatic activity/volume)Ordered By: Roberto Segovia on 09-28-2021 ALP [Catalytic activity/Vol] 51 U/L 32-92 [facility] Serum or plasma aspartate am inotransferase measurement (enzymatic activity/volume)Ordered By: Roberto Segovia on 09-28-2021 AST [Catalytic activity/Vol] 16 U/L 10-42 [facility] Serum or plasma calcium randi urement (mass/volume)Ordered By: Roberto Segovia on 09-28-2021 Calcium [Mass/Vol] 9.2 mg/dL 8.2-10.2 [facility] Serum or plasma chloride melonie surement (moles/volume)Ordered By: Roberto Segovia on 09-28-2021 Chloride [Moles/Vol] 104 mmol/L 95-114 [facility] Serum or plasma glucose randi urement (mass/volume)Ordered By: Roberto Segovia on 09-28-2021 Glucose [Mass/Vol] 100 mg/dL 70-100 [facility] Comment on above: ADA recommended refe rence rangeRandom Glucose Reference Range is dependent on time and content of last meal. Glucose of more than 200 mg/dL in a nonstressed, ambulatory subject supports the diagnosis of Diabetes Mellitus. Serum or plasma non-glucuron idated bilirubin measurement (mass/volume)Ordered By: Roberto Segovia on 09-28-2021 Bilirubin.indirect [Mass/Vol] TNP [facility] Comment on above: Test not performed Serum or plasma potassium me asurement (moles/volume)Ordered By: Roberto Segovia on 09-28-2021 Potassium [Moles/Vol] 4.4 mmol/L 3.5-5.1 [facility] Serum or plasma sodium measu rement (moles/volume)Ordered By: Roberto Segovia on 09-28-2021 Sodium [Moles/Vol] 140 mmol/L 136-146 [facility] Serum or plasma total biliru bin measurement (mass/volume)Ordered By: oRberto Segovia on 09-28-2021 Bilirubin [Mass/Vol] 0.4 mg/dL 0.3-1.2 [facility] Serum or plasma total carbon dioxide measurement (moles/volume)Ordered By: Roberto Segovia on 09-28-2021 CO2 [Moles/Vol] 28.1 mmol/L 22.0-30.0 [facility] Serum or plasma urea nitroge n measurement (mass/volume)Ordered By: Rboerto Segovia on 09-28-2021 Urea nitrogen [Mass/Vol] 5 mg/dL 9-23 [facility] Troponin I.cardiac [Mass/vol ume] in Serum or Plasma by High sensitivity methodOrdered By: Roberto Segovia on 09-28-2021 Troponin I.cardiac High sensitivity method [Mass/Vol] < 3 pg/mL 0-15 [facility] Albumin [Mass/volume] in Ser um or PlasmaOrdered By: Luz Fiore on 09-09-2021 Albumin [Mass/Vol] 4.0 g/dL 3.2-5.5 [facility] Amphetamine Screen Ql (U)Ord ered By: Luz Fiore on 09-09-2021 Amphetamines Ql (U) Negative Negative [facility] Automated erythrocytes count in urine sediment (number/area)Ordered By: Luz Fiore on 09-09-2021 RBC Auto (Urine sed) [#/Area] 50-100 [HPF] [facility] Automated leukocytes count i n urine sediment (number/area)Ordered By: Luz Fiore on 09-09-2021 WBC Auto (Urine sed) [#/Area] 20-49 [HPF] [facility] Barbiturates [Presence] in U rineOrdered By: Luz Fiore on 09-09-2021 Barbiturates Ql (U) Negative Negative [facility] Basophils Auto (Bld) [#/Vol] Ordered By: Luz Fiore on 09-09-2021 Basophils (Bld) [#/Vol] 0.0 10*3/uL 0.0-0.2 [facility] Basophils/100 WBC Auto (Bld) Ordered By: Luz Fiore on 09-09-2021 Basophils/100 WBC (Bld) 0.5 % [facility] Benzodiazepines [Presence] i n UrineOrdered By: Luz Fiore on 09-09-2021 Benzodiazepines Ql (U) Negative Negative [facility] Bilirubin Test strip Ql (U)O rdered By: Luz Fiore on 09-09-2021 Bilirubin Ql (U) Negative Negative [facility] Blood hemoglobin measurement (mass/volume)Ordered By: Luz Fiore on 09-09-2021 Hemoglobin (Bld) [Mass/Vol] 14.1 g/dL 11.8-15.4 [facility] Blood leukocytes automated c ount (number/volume)Ordered By: Luz Fiore on 09-09-2021 WBC (Bld) [#/Vol] 8.3 10*3/uL 4.5-11.0 [facility] Cannabinoids [Presence] in U rine by Screen methodOrdered By: Luz Fiore on 09-09-2021 Cannabinoids Screen Ql (U) Positive Negative [facility] Comment on above: These are unconfirme d results and should not be used for legal purposes. Drug Cut-Off Concentration: AMPH 1000 ng/mL ELMER 200 ng/mL BRICE 200 ng/mL COCM 300 ng/mL OP 300 ng/mL PCP 25 ng/mL THC 20 ng/mL Color Auto (U)Ordered By: Giovanni Fiore on 09-09-2021 Color (U) Yellow Yellow [facility] Creatinine and Glomerular fi ltration rate.predicted panel (S/P/Bld)Ordered By: Luz Fiore on 09-09-2021 Creatinine [Mass/Vol] 0.76 mg/dL 0.44-1.03 [facility] Eosinophils Auto (Bld) [#/Vo l]Ordered By: Luz Fiore on 09-09-2021 Eosinophils (Bld) [#/Vol] 0.1 10*3/uL 0.0-0.45 [facility] Eosinophils/100 WBC Auto (Bl d)Ordered By: Luz Fiore on 09-09-2021 Eosinophils/100 WBC (Bld) 1.8 % [facility] Erythrocyte distribution wid th Auto (RBC) [Ratio]Ordered By: Luz Fiore on 09-09-2021 Erythrocyte distribution width (RBC) [Ratio] 13.1 % 11.9-15.3 [facility] Estimated glomerular filtrat ion rate (GFR) non- AmericanOrdered By: Luz Fiore on 09-09-2021 GFR/1.73 sq M.predicted among non-blacks MDRD (S/P/Bld) [Vol rate/Area] > 60 mL/Min [facility] Globulin Calc (S) [Mass/Vol] Ordered By: Luz Fiore on 09-09-2021 Globulin (S) [Mass/Vol] 3.0 g/dL [facility] Glucose Glucometer (BldC) [M ass/Vol]Ordered By: Luz Fiore on 09-09-2021 Glucose [Mass/Vol] 106 mg/dL [facility] Comment on above: Random Glucose Refer ence Range is dependent on time and content of last meal. Glucose of more than 200 mg/dL in a nonstressed, ambulatory subject supports the diagnosis of Diabetes Mellitus. Hematocrit Auto (Bld) [Volum e fraction]Ordered By: Luz Fiore on 09-09-2021 Hematocrit (Bld) [Volume fraction] 40.9 % 34.0-46.4 [facility] Ketones Auto test strip (U) [Mass/Vol]Ordered By: Luz Fiore on 09-09-2021 Ketones (U) [Mass/Vol] Negative Negative [facility] Laboratory - Chemistry and C hemistry - challengeOrdered By: Luz Fiore on 09-09-2021 Magnesium [Mass/Vol] 2.0 mg/dL 1.6-2.6 [facility] - CoagulationOrde red By: Luz Fiore on 09-09-2021 PT Coag (PPP) [Time] 12.4 s 9.0-12.9 [facility] - Drug toxicology Ordered By: Luz Fiore on 09-09-2021 Opiates Ql (U) Negative Negative [facility] Laboratory - Hematology and Cell countsOrdered By: Luz Fiore on 09-09-2021 Nucleated RBC/100 WBC (Bld) [Ratio] 0.1 % 0-0.5 [facility] - UrinalysisOrder ed By: Luz Fiore on 09-09-2021 Hyaline casts LM Ql (Urine sed) 0-8 [LPF] [facility] Lymphocytes Auto (Bld) [#/Vo l]Ordered By: Luz Fiore on 09-09-2021 Lymphocytes (Bld) [#/Vol] 3.2 10*3/uL 1.00-4.8 [facility] Lymphocytes/100 WBC Auto (Bl d)Ordered By: Luz Fiore on 09-09-2021 Lymphocytes/100 WBC (Bld) 38.6 % [facility] MCH Auto (RBC) [Entitic mass ]Ordered By: Luz Fiore on 09-09-2021 MCH (RBC) [Entitic mass] 30.6 pg 24.7-34.3 [facility] MCHC Auto (RBC) [Mass/Vol]Or dered By: Luz Fiore on 09-09-2021 MCHC (RBC) [Mass/Vol] 34.5 g/dL 32.0-35.0 [facility] MCV Auto (RBC) [Entitic vol] Ordered By: Luz Fiore on 09-09-2021 MCV (RBC) [Entitic vol] 88.6 fL 80-100 [facility] Monocytes Auto (Bld) [#/Vol] Ordered By: Luz Fiore on 09-09-2021 Monocytes (Bld) [#/Vol] 0.5 10*3/uL 0.0-0.8 [facility] Monocytes/100 WBC Auto (Bld) Ordered By: Luz Fiore on 09-09-2021 Monocytes/100 WBC (Bld) 6.3 % [facility] Neutrophils Auto (Bld) [#/Vo l]Ordered By: Luz Fiore on 09-09-2021 Neutrophils (Bld) [#/Vol] 4.4 10*3/uL 1.8-7.7 [facility] Neutrophils/100 WBC Auto (Bl d)Ordered By: Luz Fiore on 09-09-2021 Neutrophils/100 WBC (Bld) 52.8 % [facility] Nitrite Test strip Ql (U)Ord ered By: Luz Fiore on 09-09-2021 Nitrite Ql (U) Negative Negative [facility] No Panel InformationOrdered By: Luz Fiore on 09-09-2021 Estimated GFR () > 60 mL/Min [facility] Comment on above: GFR estimated refere nce range: According to KDOQI guidelines, <60 ml/min/1.73m2 is sufficient to diagnose a patient with chronic kidney disease. Pharmacy Creatinine Clearance (Chem 83.88 [facility] Phencyclidine Screen Ql (U)O rdered By: Luz Fiore on 09-09-2021 Phencyclidine Ql (U) Negative Negative [facility] Platelet mean volume Auto (B ld) [Entitic vol]Ordered By: Luz Fiore on 09-09-2021 Platelet mean volume (Bld) [Entitic vol] 8.5 fL 6.3-10.7 [facility] Platelet poor plasma interna tional normalized ratio (INR) by coagulation assay (relatOrdered By: Luz Fiore on 09-09-2021 INR Coag (PPP) [Relative time] 1.1 {INR} [facility] Comment on above: INR Therapeutic Rang e A) Pre- and Peroperative OAT started two weeks before surgery. NOT HIP SURGERY: 1.5 - 2.5 HIP SURGERY: 2 - 3B) Primary and secondary prevention of venous THROMBOSIS: 2 - 3C) Active venous thrombosis, pulmonary embolismand prevention of recurrent venous thrombosis: 2 - 3D) Prevention of arterial thromboembolismincluding patients with mechanical heart valves: 3 - 4.5 Platelets Auto (Bld) [#/Vol] Ordered By: Luz Fiore on 09-09-2021 Platelets (Bld) [#/Vol] 249 10*3/uL 150-450 [facility] Protein Auto test strip (U) [Mass/Vol]Ordered By: Luz Fiore on 09-09-2021 Protein (U) [Mass/Vol] 30 mg/dL Negative [facility] Protein [Mass/volume] in Ser um or PlasmaOrdered By: Luz Fiore on 09-09-2021 Protein [Mass/Vol] 7.0 g/dL 6.1-7.9 [facility] RBC Auto (Bld) [#/Vol]Ordere d By: Luz Fiore on 09-09-2021 RBC (Bld) [#/Vol] 4.62 10*6/uL 3.60-5.00 [facility] Serum or plasma alanine white otransferase measurement without P-5'-P (enzymatic activiOrdered By: Luz Fiore on 09-09-2021 ALT No additional P-5'-P [Catalytic activity/Vol] 11 U/L 10-60 [facility] Serum or plasma albumin/glob ulin mass ratioOrdered By: Luz Fiore on 09-09-2021 Albumin/Globulin [Mass ratio] 1.3 {ratio} [facility] Serum or plasma alkaline ignacio sphatase measurement (enzymatic activity/volume)Ordered By: Luz Fiore on 09-09-2021 ALP [Catalytic activity/Vol] 45 U/L 32-92 [facility] Serum or plasma aspartate am inotransferase measurement (enzymatic activity/volume)Ordered By: Luz Fiore on 09-09-2021 AST [Catalytic activity/Vol] 24 U/L 10-42 [facility] Serum or plasma calcium randi urement (mass/volume)Ordered By: Luz Fiore on 09-09-2021 Calcium [Mass/Vol] 9.2 mg/dL 8.2-10.2 [facility] Serum or plasma chloride melonie surement (moles/volume)Ordered By: Luz Fiore on 09-09-2021 Chloride [Moles/Vol] 103 mmol/L 95-114 [facility] Serum or plasma glucose randi urement (mass/volume)Ordered By: Luz Fiore on 09-09-2021 Glucose [Mass/Vol] 85 mg/dL 70-100 [facility] Comment on above: ADA recommended refe rence rangeRandom Glucose Reference Range is dependent on time and content of last meal. Glucose of more than 200 mg/dL in a nonstressed, ambulatory subject supports the diagnosis of Diabetes Mellitus. Serum or plasma potassium me asurement (moles/volume)Ordered By: Luz Fiore on 09-09-2021 Potassium [Moles/Vol] 4.2 mmol/L 3.5-5.1 [facility] Serum or plasma sodium measu rement (moles/volume)Ordered By: Luz Fiore on 09-09-2021 Sodium [Moles/Vol] 138 mmol/L 136-146 [facility] Serum or plasma total biliru bin measurement (mass/volume)Ordered By: Luz Fiore on 09-09-2021 Bilirubin [Mass/Vol] 0.3 mg/dL 0.3-1.2 [facility] Serum or plasma total carbon dioxide measurement (moles/volume)Ordered By: Luz Fiore on 09-09-2021 CO2 [Moles/Vol] 26.3 mmol/L 22.0-30.0 [facility] Serum or plasma urea nitroge n measurement (mass/volume)Ordered By: Luz Fiore on 09-09-2021 Urea nitrogen [Mass/Vol] 8 mg/dL 9-23 [facility] Specific gravity Auto test s trip (U) [Rel density]Ordered By: Luz Fiore on 09-09-2021 Specific gravity (U) [Rel density] 1.017 1.001-1.030 [facility] Squamous epithelial cells de tection in urine sediment by light microscopyOrdered By: Luz Fiore on 09-09-2021 Epithelial cells.squamous LM Ql (Urine sed) 1-2 [HPF] [facility] Urine bacteria detection by automated methodOrdered By: Luz Fiore on 09-09-2021 Bacteria Auto Ql (U) None seen None Seen [facility] Urine clarity by refractomet ry automatedOrdered By: Luz Fiore on 09-09-2021 Clarity Refractometry automated (U) Cloudy Clear [facility] Urine cocaine detectionOrder ed By: Luz Fiore on 09-09-2021 Cocaine Ql (U) Negative Negative [facility] Urine culture routineOrdered By: Luz Fiore on 09-09-2021 Bacteria identified Cx Nom (U) 2 Days [facility] Urine glucose measurement by automated test strip (mass/volume)Ordered By: Luz Fiore on 09-09-2021 Glucose Auto test strip (U) [Mass/Vol] Normal mg/dL Normal [facility] Urine hemoglobin detection b y automated test stripOrdered By: Luz Fiore on 09-09-2021 Hemoglobin Auto test strip Ql (U) 2+ Negative [facility] Urine leukocyte esterase det ection by automated test stripOrdered By: Luz Fiore on 09-09-2021 Leukocyte esterase Auto test strip Ql (U) 3+ Negative [facility] Urobilinogen Auto test strip (U) [Mass/Vol]Ordered By: Luz Fiore on 09-09-2021 Urobilinogen (U) [Mass/Vol] Normal mg/dL Normal [facility] pH Auto test strip (U)Ordere d By: Luz Fiore on 09-09-2021 pH (U) 7.0 [pH] 5.0-9.0 [facility] CNPNon 08-17-2021 AMELIAN Telephone (PENDMN) ----- BHAVNA KOVACS ([id number]) 2 F Date Time Provider Department 08/17/21 CLARITZA BLAND During your visit today, we recorded the following information about you: Jodie Arayaers [facility] 08/17/2021 2:24 PM Signed Patient has been identified by name and date of : Yes Pending Prescriptions Disp Refills TESTOSTERONE CYPIONATE 200 MG/ML INTRAMUSCULAR OIL 2 mL 5 Sig: INJECT 100 MG (0.5 ml) SQ Q2wks SHAWN Class: C-III PRESTON: No RX INSTRUCTIONS: Patient aware RX will be sent to pharmacy. No need to notify patient. Jodie Yo [facility] Date of last visit: 07/03/2020-Baldo Date of next endo appointment: SHARRI 30 day supply. of medication requested [facility]/20/2021 11:58 AM Signed PA needed for testosterone via onbase Mel Marsh RN 08/20/2021 3:56 PM Addendum Contacted [facility] at [phone] to verify insurance information entered in PA tat was started on CoverMyMeds. This information was incorrect; pharmacist was able to fill the prescription with a $23.50 co-pay. Per Pharmacy, the insurance information in the patient's chart is incorrect. Tucker Blair message sent to patient with scheduling information for Dr. Mckinney, as patient last saw Dr. Bland 06/2020, as well as request to update insurance information. Allergies As of Date: 08/17/2021 Noted Allergy Reaction CODEINE 07/17/2017 4 - Hives 9 - Itching Date Reviewed: 12/10/2020 Reviewed by: Oliva Santana RN - Fully Assessed Reason for Visit: Refill Request [94] Refill Request [94] Primary Visit Diagnosis:Gender dysphoria in adult [F64.0] Order(s):testosterone cypionate (DEPO-TESTOSTERONE) 200 mg/mL injectionINJECT 100 MG (0.5 ml) SQ D4fnyAwbt: 2 mLRfl: 1 Prescriptions as of 08/20/2021 - testosterone cypionate (DEPO-TESTOSTERONE) 200 mg/mL injection INJECT 100 MG (0.5 ml) SQ Q2wks - lamoTRIgine (LAMICTAL) 25 mg tablet Take 100 mg by mouth twice daily. - LORazepam (ATIVAN) 1 mg tablet Take 1 mg by mouth q 12 HR. - phenytoin ER (DILANTIN) 100 mg ER capsule Take 300 mg by mouth once daily. - metoprolol succinate ER (TOPROL XL) 100 mg Take by mouth. - Needle, Disp, 18 G (BD DISPOSABLE NEEDLES) 18 gauge x 1 ndle For use to withdraw testosterone Q2wks - BD LUER-MARYLOU SYRINGE 1 mL syringe for use with testosterone injection SQ Q2wks - Needle, Disp, 23 G 23 gauge x 3/4 ndle For use with testosterone administration SQ Q2wks - propranolol (INDERAL) 10 mg tablet Take 1 tablet by mouth three times daily. Problem List As Of Date 08/17/2021 Noted Resolved Social anxiety disorder [F40.10] 09/04/2018 Gender dysphoria in adolescent and adult [F64.0]09/04/2018 PTSD (post-traumatic stress disorder) [F43.10] 10/11/2018 Gender dysphoria [F64.9] Psychogenic nonepileptic seizure [F44.5] Anxiety disorder [F41.9] 07/15/2017 Panic attacks [F41.0] Acute post-traumatic headache, not intractable *12/05/2019 12/11/2019 Abnormal weight loss [R63.4] 12/05/2019 Low TSH level [R79.89] 12/06/2019 Mild protein-calorie malnutrition (HCC) [E44.1] 12/07/2019 Frequent headaches [R51.9] 07/20/2017 Sleep difficulties [G47.9] 08/31/2018 Prescriptions ordered this encounter Disp Refills Start End TESTOSTERONE CYPIONATE 200 MG/ML INT* 2 mL 1 08/17/2021 08/17/2025 Sig: INJECT 100 MG (0.5 ml) SQ Q2wks Medications Discontinued During This Encounter Prescriptions - testosterone cypionate (DEPO-TESTOSTERONE) 200 mg/mL injection (Discontinued) INJECT 100 MG (0.5 ml) SQ Q2wks Encounter Status:Closed by TRINA QUINN on 08/20/21 Normal [facility] Albumin [Mass/volume] in Ser um or PlasmaOrdered By: Tommy Bowen on 08-12-2021 Albumin [Mass/Vol] 4.0 g/dL 3.2-5.5 [facility] Automated erythrocytes count in urine sediment (number/area)Ordered By: Tommy Bowen on 08-12-2021 RBC Auto (Urine sed) [#/Area] Innumerable [HPF] [facility] Automated leukocytes count i n urine sediment (number/area)Ordered By: Tommy Bowen on 08-12-2021 WBC Auto (Urine sed) [#/Area] 5-9 [HPF] [facility] Basophils Auto (Bld) [#/Vol] Ordered By: Tommy Bowen on 08-12-2021 Basophils (Bld) [#/Vol] 0.0 10*3/uL 0.0-0.2 [facility] Basophils/100 WBC Auto (Bld) Ordered By: Tommy Bowen on 08-12-2021 Basophils/100 WBC (Bld) 0.3 % [facility] Bilirubin Test strip Ql (U)O rdered By: Tommy Bowen on 08-12-2021 Bilirubin Ql (U) Negative Negative [facility] Blood hemoglobin measurement (mass/volume)Ordered By: Tommy Bowen on 08-12-2021 Hemoglobin (Bld) [Mass/Vol] 13.9 g/dL 11.8-15.4 [facility] Blood leukocytes automated c ount (number/volume)Ordered By: Tommy Bowen on 08-12-2021 WBC (Bld) [#/Vol] 8.6 10*3/uL 4.5-11.0 [facility] Color Auto (U)Ordered By: Hermes Bowen on 08-12-2021 Color (U) Yellow Yellow [facility] Creatinine and Glomerular fi ltration rate.predicted panel (S/P/Bld)Ordered By: Tommy Bowen on 08-12-2021 Creatinine [Mass/Vol] 0.70 mg/dL 0.44-1.03 [facility] Eosinophils Auto (Bld) [#/Vo l]Ordered By: Tommy Bowen on 08-12-2021 Eosinophils (Bld) [#/Vol] 0.0 10*3/uL 0.0-0.45 [facility] Eosinophils/100 WBC Auto (Bl d)Ordered By: Tmomy Bowen on 08-12-2021 Eosinophils/100 WBC (Bld) 0.3 % [facility] Erythrocyte distribution wid th Auto (RBC) [Ratio]Ordered By: Tommy Bowen on 08-12-2021 Erythrocyte distribution width (RBC) [Ratio] 12.7 % 11.9-15.3 [facility] Estimated glomerular filtrat ion rate (GFR) non- AmericanOrdered By: Tommy Bowen on 02-16-2022 GFR/1.73 sq M.predicted among non-blacks MDRD (S/P/Bld) [Vol rate/Area] > 60 mL/Min [facility] Globulin Calc (S) [Mass/Vol] Ordered By: Tommy Bowen on 08-12-2021 Globulin (S) [Mass/Vol] 3.6 g/dL [facility] Glucose Glucometer (BldC) [M ass/Vol]Ordered By: Tommy Bowen on 08-12-2021 Glucose [Mass/Vol] 102 mg/dL [facility] Comment on above: Random Glucose Refer ence Range is dependent on time and content of last meal. Glucose of more than 200 mg/dL in a nonstressed, ambulatory subject supports the diagnosis of Diabetes Mellitus. Hematocrit Auto (Bld) [Volum e fraction]Ordered By: Tommy Bowen on 08-12-2021 Hematocrit (Bld) [Volume fraction] 40.4 % 34.0-46.4 [facility] Ketones Auto test strip (U) [Mass/Vol]Ordered By: Tommy Bowen on 08-12-2021 Ketones (U) [Mass/Vol] Trace Negative [facility] Laboratory - Hematology and Cell countsOrdered By: Tommy Bowen on 08-12-2021 Nucleated RBC/100 WBC (Bld) [Ratio] 0.1 % 0-0.5 [facility] - UrinalysisOrder ed By: Tommy Bowen on 08-12-2021 Hyaline casts LM Ql (Urine sed) 0-8 [LPF] [facility] Lymphocytes Auto (Bld) [#/Vo l]Ordered By: Tommy Bowen on 08-12-2021 Lymphocytes (Bld) [#/Vol] 2.0 10*3/uL 1.00-4.8 [facility] Lymphocytes/100 WBC Auto (Bl d)Ordered By: Tommy Bowen on 08-12-2021 Lymphocytes/100 WBC (Bld) 23.2 % [facility] MCH Auto (RBC) [Entitic mass ]Ordered By: Tommy Bowen on 08-12-2021 MCH (RBC) [Entitic mass] 30.2 pg 24.7-34.3 [facility] MCHC Auto (RBC) [Mass/Vol]Or dered By: Tommy Bowen on 08-12-2021 MCHC (RBC) [Mass/Vol] 34.5 g/dL 32.0-35.0 [facility] MCV Auto (RBC) [Entitic vol] Ordered By: Tommy Bowen on 08-12-2021 MCV (RBC) [Entitic vol] 87.6 fL 80-100 [facility] Monocytes Auto (Bld) [#/Vol] Ordered By: Tommy Bowen on 08-12-2021 Monocytes (Bld) [#/Vol] 0.6 10*3/uL 0.0-0.8 [facility] Monocytes/100 WBC Auto (Bld) Ordered By: Tommy Bowen on 08-12-2021 Monocytes/100 WBC (Bld) 6.7 % [facility] Neutrophils Auto (Bld) [#/Vo l]Ordered By: Tommy Bowen on 08-12-2021 Neutrophils (Bld) [#/Vol] 6.0 10*3/uL 1.8-7.7 [facility] Neutrophils/100 WBC Auto (Bl d)Ordered By: Tommy Bowen on 08-12-2021 Neutrophils/100 WBC (Bld) 69.5 % [facility] Nitrite Test strip Ql (U)Ord ered By: Tommy Bowen on 08-12-2021 Nitrite Ql (U) Negative Negative [facility] No Panel InformationOrdered By: Tommy Bowen on 08-12-2021 Estimated GFR () > 60 mL/Min [facility] Comment on above: GFR estimated refere nce range: According to KDOQI guidelines, <60 ml/min/1.73m2 is sufficient to diagnose a patient with chronic kidney disease. Pharmacy Creatinine Clearance (Chem 143.12 [facility] Platelet mean volume Auto (B ld) [Entitic vol]Ordered By: Tommy Bowen on 08-12-2021 Platelet mean volume (Bld) [Entitic vol] 7.9 fL 6.3-10.7 [facility] Platelets Auto (Bld) [#/Vol] Ordered By: Tommy Bowen on 08-12-2021 Platelets (Bld) [#/Vol] 315 10*3/uL 150-450 [facility] Protein Auto test strip (U) [Mass/Vol]Ordered By: Tommy Bowen on 08-12-2021 Protein (U) [Mass/Vol] 30 mg/dL Negative [facility] Protein [Mass/volume] in Ser um or PlasmaOrdered By: Tommy Bowen on 08-12-2021 Protein [Mass/Vol] 7.6 g/dL 6.1-7.9 [facility] RBC Auto (Bld) [#/Vol]Ordere d By: Tommy Bowen on 08-12-2021 RBC (Bld) [#/Vol] 4.61 10*6/uL 3.60-5.00 [facility] Serum or plasma alanine white otransferase measurement without P-5'-P (enzymatic activiOrdered By: Tommy Bowen on 08-12-2021 ALT No additional P-5'-P [Catalytic activity/Vol] 11 U/L 10-60 [facility] Serum or plasma albumin/glob ulin mass ratioOrdered By: Tommy Bowen on 08-12-2021 Albumin/Globulin [Mass ratio] 1.1 {ratio} [facility] Serum or plasma alkaline ignacio sphatase measurement (enzymatic activity/volume)Ordered By: Tommy Bowen on 08-12-2021 ALP [Catalytic activity/Vol] 58 U/L 32-92 [facility] Serum or plasma aspartate am inotransferase measurement (enzymatic activity/volume)Ordered By: Tommy Bowen on 08-12-2021 AST [Catalytic activity/Vol] 16 U/L 10-42 [facility] Serum or plasma calcium randi urement (mass/volume)Ordered By: Tommy Bowen on 08-12-2021 Calcium [Mass/Vol] 9.1 mg/dL 8.2-10.2 [facility] Serum or plasma chloride melonie surement (moles/volume)Ordered By: Tommy Bowen on 08-12-2021 Chloride [Moles/Vol] 102 mmol/L 95-114 [facility] Serum or plasma glucose randi urement (mass/volume)Ordered By: Tommy Bowen on 08-12-2021 Glucose [Mass/Vol] 86 mg/dL 70-100 [facility] Comment on above: ADA recommended refe rence rangeRandom Glucose Reference Range is dependent on time and content of last meal. Glucose of more than 200 mg/dL in a nonstressed, ambulatory subject supports the diagnosis of Diabetes Mellitus. Serum or plasma potassium me asurement (moles/volume)Ordered By: Tommy Bowen on 08-12-2021 Potassium [Moles/Vol] 3.6 mmol/L 3.5-5.1 [facility] Serum or plasma sodium measu rement (moles/volume)Ordered By: Tommy Bowen on 08-12-2021 Sodium [Moles/Vol] 136 mmol/L 136-146 [facility] Serum or plasma total biliru bin measurement (mass/volume)Ordered By: Tommy Bowen on 08-12-2021 Bilirubin [Mass/Vol] 0.5 mg/dL 0.3-1.2 [facility] Serum or plasma total carbon dioxide measurement (moles/volume)Ordered By: Tommy Bowen on 08-12-2021 CO2 [Moles/Vol] 23.8 mmol/L 22.0-30.0 [facility] Serum or plasma urea nitroge n measurement (mass/volume)Ordered By: Tommy Bowen on 08-12-2021 Urea nitrogen [Mass/Vol] 6 mg/dL 9-23 [facility] Specific gravity Auto test s trip (U) [Rel density]Ordered By: Tommy Bowen on 08-12-2021 Specific gravity (U) [Rel density] 1.018 1.001-1.030 [facility] Squamous epithelial cells de tection in urine sediment by light microscopyOrdered By: Tommy Bowen on 08-12-2021 Epithelial cells.squamous LM Ql (Urine sed) 3-4 [HPF] [facility] Urine bacteria detection by automated methodOrdered By: Tommy Bowen on 08-12-2021 Bacteria Auto Ql (U) None seen None Seen [facility] Urine clarity by refractomet ry automatedOrdered By: Tommy Bowen on 08-12-2021 Clarity Refractometry automated (U) Clear Clear [facility] Urine culture routineOrdered By: Tommy Bowen on 08-12-2021 Bacteria identified Cx Nom (U) No Growth 2 Days [facility] Urine glucose measurement by automated test strip (mass/volume)Ordered By: Tommy Bowen on 08-12-2021 Glucose Auto test strip (U) [Mass/Vol] Normal mg/dL Normal [facility] Urine hemoglobin detection b y automated test stripOrdered By: Tommy Bowen on 08-12-2021 Hemoglobin Auto test strip Ql (U) 3+ Negative [facility] Urine leukocyte esterase det ection by automated test stripOrdered By: Tommy Bowen on 08-12-2021 Leukocyte esterase Auto test strip Ql (U) 1+ Negative [facility] Urobilinogen Auto test strip (U) [Mass/Vol]Ordered By: Tommy Bowen on 08-12-2021 Urobilinogen (U) [Mass/Vol] Normal mg/dL Normal [facility] pH Auto test strip (U)Ordere d By: Tommy Bowen on 08-12-2021 pH (U) 8.0 [pH] 5.0-9.0 [facility] Albumin [Mass/volume] in Ser um or PlasmaOrdered By: Tommy Bowen on 08-07-2021 Albumin [Mass/Vol] 4.4 g/dL 3.2-5.5 [facility] Automated erythrocytes count in urine sediment (number/area)Ordered By: Tommy Bowen on 08-07-2021 RBC Auto (Urine sed) [#/Area] 50-100 [HPF] [facility] Automated leukocytes count i n urine sediment (number/area)Ordered By: Tommy Bowen on 08-07-2021 WBC Auto (Urine sed) [#/Area] 10-19 [HPF] [facility] Basophils Auto (Bld) [#/Vol] Ordered By: Tommy Bowen on 08-07-2021 Basophils (Bld) [#/Vol] 0.0 10*3/uL 0.0-0.2 [facility] Basophils/100 WBC Auto (Bld) Ordered By: Tommy Bowen on 08-07-2021 Basophils/100 WBC (Bld) 0.4 % [facility] Bilirubin Test strip Ql (U)O rdered By: Tommy Bowen on 08-07-2021 Bilirubin Ql (U) Negative Negative [facility] Blood hemoglobin measurement (mass/volume)Ordered By: Tommy Bowen on 08-07-2021 Hemoglobin (Bld) [Mass/Vol] 14.1 g/dL 11.8-15.4 [facility] Blood leukocytes automated c ount (number/volume)Ordered By: Tommy Bowen on 08-07-2021 WBC (Bld) [#/Vol] 10.0 10*3/uL 4.5-11.0 [facility] Color Auto (U)Ordered By: Hermes Bowen on 08-07-2021 Color (U) Yellow Yellow [facility] Creatinine and Glomerular fi ltration rate.predicted panel (S/P/Bld)Ordered By: Tommy Bowen on 08-07-2021 Creatinine [Mass/Vol] 0.75 mg/dL 0.44-1.03 [facility] Eosinophils Auto (Bld) [#/Vo l]Ordered By: Tommy Bowen on 08-07-2021 Eosinophils (Bld) [#/Vol] 0.0 10*3/uL 0.0-0.45 [facility] Eosinophils/100 WBC Auto (Bl d)Ordered By: Tommy Bowen on 08-07-2021 Eosinophils/100 WBC (Bld) 0.4 % [facility] Erythrocyte distribution wid th Auto (RBC) [Ratio]Ordered By: Tommy Bowen on 08-07-2021 Erythrocyte distribution width (RBC) [Ratio] 12.7 % 11.9-15.3 [facility] Estimated glomerular filtrat ion rate (GFR) non- AmericanOrdered By: Tommy Bowen on 08-07-2021 GFR/1.73 sq M.predicted among non-blacks MDRD (S/P/Bld) [Vol rate/Area] > 60 mL/Min [facility] Globulin Calc (S) [Mass/Vol] Ordered By: Tommy Bowen on 08-07-2021 Globulin (S) [Mass/Vol] 3.6 g/dL [facility] Hematocrit Auto (Bld) [Volum e fraction]Ordered By: Tommy Bowen on 08-07-2021 Hematocrit (Bld) [Volume fraction] 41.5 % 34.0-46.4 [facility] Ketones Auto test strip (U) [Mass/Vol]Ordered By: Tommy Bowen on 08-07-2021 Ketones (U) [Mass/Vol] Trace Negative [facility] Laboratory - Hematology and Cell countsOrdered By: Tommy Bowen on 08-07-2021 Nucleated RBC/100 WBC (Bld) [Ratio] 0.0 % 0-0.5 [facility] Laboratory - UrinalysisOrder ed By: Tommy Bowen on 08-07-2021 Hyaline casts LM Ql (Urine sed) 0-8 [LPF] [facility] Lymphocytes Auto (Bld) [#/Vo l]Ordered By: Tommy Bowen on 08-07-2021 Lymphocytes (Bld) [#/Vol] 2.5 10*3/uL 1.00-4.8 [facility] Lymphocytes/100 WBC Auto (Bl d)Ordered By: Tommy Bowen on 08-07-2021 Lymphocytes/100 WBC (Bld) 25.4 % [facility] MCH Auto (RBC) [Entitic mass ]Ordered By: Tommy Bowen on 08-07-2021 MCH (RBC) [Entitic mass] 29.8 pg 24.7-34.3 [facility] MCHC Auto (RBC) [Mass/Vol]Or dered By: Tommy Bowen on 08-07-2021 MCHC (RBC) [Mass/Vol] 33.9 g/dL 32.0-35.0 [facility] MCV Auto (RBC) [Entitic vol] Ordered By: Tommy Bowen on 08-07-2021 MCV (RBC) [Entitic vol] 87.7 fL 80-100 [facility] Monocytes Auto (Bld) [#/Vol] Ordered By: Tommy Bowen on 08-07-2021 Monocytes (Bld) [#/Vol] 0.8 10*3/uL 0.0-0.8 [facility] Monocytes/100 WBC Auto (Bld) Ordered By: Tommy Bowen on 08-07-2021 Monocytes/100 WBC (Bld) 7.8 % [facility] Neutrophils Auto (Bld) [#/Vo l]Ordered By: Tommy Bowen on 08-07-2021 Neutrophils (Bld) [#/Vol] 6.6 10*3/uL 1.8-7.7 [facility] Neutrophils/100 WBC Auto (Bl d)Ordered By: Tommy Bowen on 08-07-2021 Neutrophils/100 WBC (Bld) 66.0 % [facility] Nitrite Test strip Ql (U)Ord ered By: Tommy Bowen on 08-07-2021 Nitrite Ql (U) Negative Negative [facility] No Panel InformationOrdered By: Tommy Bowen on 08-07-2021 Estimated GFR () > 60 mL/Min [facility] Comment on above: GFR estimated refere nce range: According to KDOQI guidelines, <60 ml/min/1.73m2 is sufficient to diagnose a patient with chronic kidney disease. Pharmacy Creatinine Clearance (Chem N/A [facility] Platelet mean volume Auto (B ld) [Entitic vol]Ordered By: Tommy Bowen on 08-07-2021 Platelet mean volume (Bld) [Entitic vol] 7.5 fL 6.3-10.7 [facility] Platelets Auto (Bld) [#/Vol] Ordered By: Tommy Bowen on 08-07-2021 Platelets (Bld) [#/Vol] 325 10*3/uL 150-450 [facility] Protein Auto test strip (U) [Mass/Vol]Ordered By: Tommy Bowen on 08-07-2021 Protein (U) [Mass/Vol] 30 mg/dL Negative [facility] Protein [Mass/volume] in Ser um or PlasmaOrdered By: Tommy Bowen on 08-07-2021 Protein [Mass/Vol] 8.0 g/dL 6.1-7.9 [facility] RBC Auto (Bld) [#/Vol]Ordere d By: Tommy Bowen on 08-07-2021 RBC (Bld) [#/Vol] 4.73 10*6/uL 3.60-5.00 [facility] Serum or plasma alanine white otransferase measurement without P-5'-P (enzymatic activiOrdered By: Tommy Bowen on 08-07-2021 ALT No additional P-5'-P [Catalytic activity/Vol] 9 U/L 10-60 [facility] Serum or plasma albumin/glob ulin mass ratioOrdered By: Tommy Bowen on 08-07-2021 Albumin/Globulin [Mass ratio] 1.2 {ratio} [facility] Serum or plasma alkaline ignacio sphatase measurement (enzymatic activity/volume)Ordered By: Tommy Bowen on 08-07-2021 ALP [Catalytic activity/Vol] 56 U/L 32-92 [facility] Serum or plasma aspartate am inotransferase measurement (enzymatic activity/volume)Ordered By: Tommy Bowen on 08-07-2021 AST [Catalytic activity/Vol] 19 U/L 10-42 [facility] Serum or plasma calcium randi urement (mass/volume)Ordered By: Tommy Bowen on 08-07-2021 Calcium [Mass/Vol] 9.3 mg/dL 8.2-10.2 [facility] Serum or plasma chloride melonie surement (moles/volume)Ordered By: Tommy Bowen on 08-07-2021 Chloride [Moles/Vol] 102 mmol/L 95-114 [facility] Serum or plasma glucose randi urement (mass/volume)Ordered By: Tommy Bowen on 08-07-2021 Glucose [Mass/Vol] 88 mg/dL 70-100 [facility] Comment on above: ADA recommended refe rence rangeRandom Glucose Reference Range is dependent on time and content of last meal. Glucose of more than 200 mg/dL in a nonstressed, ambulatory subject supports the diagnosis of Diabetes Mellitus. Serum or plasma potassium me asurement (moles/volume)Ordered By: Tommy Bowen on 08-07-2021 Potassium [Moles/Vol] 3.7 mmol/L 3.5-5.1 [facility] Serum or plasma sodium measu rement (moles/volume)Ordered By: Tommy Bowen on 08-07-2021 Sodium [Moles/Vol] 135 mmol/L 136-146 [facility] Serum or plasma total biliru bin measurement (mass/volume)Ordered By: Tommy Bowen on 08-07-2021 Bilirubin [Mass/Vol] 0.6 mg/dL 0.3-1.2 [facility] Serum or plasma total carbon dioxide measurement (moles/volume)Ordered By: Tommy Bowen on 08-07-2021 CO2 [Moles/Vol] 21.2 mmol/L 22.0-30.0 [facility] Serum or plasma urea nitroge n measurement (mass/volume)Ordered By: Tommy Bowen on 08-07-2021 Urea nitrogen [Mass/Vol] 10 mg/dL 9-23 [facility] Specific gravity Auto test s trip (U) [Rel density]Ordered By: Tommy Bowen on 08-07-2021 Specific gravity (U) [Rel density] 1.018 1.001-1.030 [facility] Squamous epithelial cells de tection in urine sediment by light microscopyOrdered By: Tommy Bowen on 08-07-2021 Epithelial cells.squamous LM Ql (Urine sed) 3-4 [HPF] [facility] Urine bacteria detection by automated methodOrdered By: Tommy Bowen on 08-07-2021 Bacteria Auto Ql (U) None seen None Seen [facility] Urine clarity by refractomet ry automatedOrdered By: Tommy Bowen on 08-07-2021 Clarity Refractometry automated (U) Clear Clear [facility] Urine culture routineOrdered By: Tommy Bowen on 08-07-2021 Bacteria identified Cx Nom (U) No Growth 2 Days [facility] Urine glucose measurement by automated test strip (mass/volume)Ordered By: Tommy Bowen on 08-07-2021 Glucose Auto test strip (U) [Mass/Vol] Normal mg/dL Normal [facility] Urine hemoglobin detection b y automated test stripOrdered By: Tommy Bowen on 08-07-2021 Hemoglobin Auto test strip Ql (U) 2+ Negative [facility] Urine leukocyte esterase det ection by automated test stripOrdered By: Tommy Bowen on 08-07-2021 Leukocyte esterase Auto test strip Ql (U) 2+ Negative [facility] Urobilinogen Auto test strip (U) [Mass/Vol]Ordered By: Tommy Bowen on 08-07-2021 Urobilinogen (U) [Mass/Vol] Normal mg/dL Normal [facility] pH Auto test strip (U)Ordere d By: Tommy Bowen on 08-07-2021 pH (U) 7.0 [pH] 5.0-9.0 [facility] Albumin [Mass/volume] in Ser um or PlasmaOrdered By: Bobby Gallagher on 07-10-2021 Albumin [Mass/Vol] 3.8 g/dL 3.2-5.5 [facility] Automated erythrocytes count in urine sediment (number/area)Ordered By: Bobby Gallagher on 07-10-2021 RBC Auto (Urine sed) [#/Area] Innumerable [HPF] [facility] Automated leukocytes count i n urine sediment (number/area)Ordered By: Bobby Gallagher on 07-10-2021 WBC Auto (Urine sed) [#/Area] 5-9 [HPF] [facility] Basophils Auto (Bld) [#/Vol] Ordered By: Bobby Gallagher on 07-10-2021 Basophils (Bld) [#/Vol] 0.0 10*3/uL 0.0-0.2 [facility] Basophils/100 WBC Auto (Bld) Ordered By: Bobby Gallagher on 07-10-2021 Basophils/100 WBC (Bld) 0.6 % [facility] Bilirubin Test strip Ql (U)O rdered By: Bobby Gallagher on 07-10-2021 Bilirubin Ql (U) Negative Negative [facility] Blood hemoglobin measurement (mass/volume)Ordered By: Bobby Gallagher on 07-10-2021 Hemoglobin (Bld) [Mass/Vol] 13.2 g/dL 11.8-15.4 [facility] Blood leukocytes automated c ount (number/volume)Ordered By: Bobby Gallagher on 07-10-2021 WBC (Bld) [#/Vol] 5.8 10*3/uL 4.5-11.0 [facility] Color Auto (U)Ordered By: Victorino Gallagher on 07-10-2021 Color (U) Red Yellow [facility] Creatinine and Glomerular fi ltration rate.predicted panel (S/P/Bld)Ordered By: Bobby Gallagher on 07-10-2021 Creatinine [Mass/Vol] 0.80 mg/dL 0.44-1.03 [facility] Eosinophils Auto (Bld) [#/Vo l]Ordered By: Bobby Gallagher on 07-10-2021 Eosinophils (Bld) [#/Vol] 0.1 10*3/uL 0.0-0.45 [facility] Eosinophils/100 WBC Auto (Bl d)Ordered By: Bobby Gallagher on 07-10-2021 Eosinophils/100 WBC (Bld) 1.4 % [facility] Erythrocyte distribution wid th Auto (RBC) [Ratio]Ordered By: Bobby Gallagher on 07-10-2021 Erythrocyte distribution width (RBC) [Ratio] 13.0 % 11.9-15.3 [facility] Estimated glomerular filtrat ion rate (GFR) non- AmericanOrdered By: Bobby Gallagher on 07-10-2021 GFR/1.73 sq M.predicted among non-blacks MDRD (S/P/Bld) [Vol rate/Area] > 60 mL/Min [facility] Globulin Calc (S) [Mass/Vol] Ordered By: Bobby Gallagher on 07-10-2021 Globulin (S) [Mass/Vol] 2.7 g/dL [facility] Hematocrit Auto (Bld) [Volum e fraction]Ordered By: Bobby Gallagher on 07-10-2021 Hematocrit (Bld) [Volume fraction] 38.6 % 34.0-46.4 [facility] Ketones Auto test strip (U) [Mass/Vol]Ordered By: Bobby Gallagher on 07-10-2021 Ketones (U) [Mass/Vol] Negative Negative [facility] Laboratory - Chemistry and C hemistry - challengeOrdered By: Bobby Gallagher on 07-10-2021 Magnesium [Mass/Vol] 2.0 mg/dL 1.6-2.6 [facility] Laboratory - Hematology and Cell countsOrdered By: Bobby Gallagher on 07-10-2021 Nucleated RBC/100 WBC (Bld) [Ratio] 0.3 % 0-0.5 [facility] Laboratory - UrinalysisOrder ed By: Bobby Gallagher on 07-10-2021 Hyaline casts LM Ql (Urine sed) 0-8 [LPF] [facility] Lymphocytes Auto (Bld) [#/Vo l]Ordered By: Bobby aGllagher on 07-10-2021 Lymphocytes (Bld) [#/Vol] 2.0 10*3/uL 1.00-4.8 [facility] Lymphocytes/100 WBC Auto (Bl d)Ordered By: Bobby Gallagher on 07-10-2021 Lymphocytes/100 WBC (Bld) 34.4 % [facility] MCH Auto (RBC) [Entitic mass ]Ordered By: Bobby Gallagher on 07-10-2021 MCH (RBC) [Entitic mass] 30.9 pg 24.7-34.3 [facility] MCHC Auto (RBC) [Mass/Vol]Or dered By: Bobby Gallagher on 07-10-2021 MCHC (RBC) [Mass/Vol] 34.2 g/dL 32.0-35.0 [facility] MCV Auto (RBC) [Entitic vol] Ordered By: Bobby Gallagher on 07-10-2021 MCV (RBC) [Entitic vol] 90.3 fL 80-100 [facility] Monocytes Auto (Bld) [#/Vol] Ordered By: Bobby Gallagher on 07-10-2021 Monocytes (Bld) [#/Vol] 0.4 10*3/uL 0.0-0.8 [facility] Monocytes/100 WBC Auto (Bld) Ordered By: Bobby Gallagher on 07-10-2021 Monocytes/100 WBC (Bld) 7.4 % [facility] Neutrophils Auto (Bld) [#/Vo l]Ordered By: Bobby Gallagher on 07-10-2021 Neutrophils (Bld) [#/Vol] 3.3 10*3/uL 1.8-7.7 [facility] Neutrophils/100 WBC Auto (Bl d)Ordered By: Bobby Gallagher on 07-10-2021 Neutrophils/100 WBC (Bld) 56.2 % [facility] Nitrite Test strip Ql (U)Ord ered By: Bobby Gallagher on 07-10-2021 Nitrite Ql (U) Negative Negative [facility] No Panel InformationOrdered By: Bobby Gallagher on 07-10-2021 Estimated GFR () > 60 mL/Min [facility] Comment on above: GFR estimated refere nce range: According to KDOQI guidelines, <60 ml/min/1.73m2 is sufficient to diagnose a patient with chronic kidney disease. Pharmacy Creatinine Clearance (Chem 84.65 [facility] Phosphate [Mass/volume] in S alexis or PlasmaOrdered By: Bobby Gallagher on 07-10-2021 Phosphate [Mass/Vol] 2.6 mg/dL 2.5-4.6 [facility] Platelet mean volume Auto (B ld) [Entitic vol]Ordered By: Bobby Gallagher on 07-10-2021 Platelet mean volume (Bld) [Entitic vol] 8.2 fL 6.3-10.7 [facility] Platelets Auto (Bld) [#/Vol] Ordered By: Bobby Gallagher on 07-10-2021 Platelets (Bld) [#/Vol] 243 10*3/uL 150-450 [facility] Protein Auto test strip (U) [Mass/Vol]Ordered By: Bobby Gallaghre on 07-10-2021 Protein (U) [Mass/Vol] Trace mg/dL Negative [facility] Protein [Mass/volume] in Ser um or PlasmaOrdered By: Bobby Gallagher on 07-10-2021 Protein [Mass/Vol] 6.5 g/dL 6.1-7.9 [facility] RBC Auto (Bld) [#/Vol]Ordere d By: Bobby Gallagher on 07-10-2021 RBC (Bld) [#/Vol] 4.27 10*6/uL 3.60-5.00 [facility] Serum or plasma alanine white otransferase measurement without P-5'-P (enzymatic activiOrdered By: Bobby Gallagher on 07-10-2021 ALT No additional P-5'-P [Catalytic activity/Vol] 9 U/L 10-60 [facility] Serum or plasma albumin/glob ulin mass ratioOrdered By: Bobby Gallagher on 07-10-2021 Albumin/Globulin [Mass ratio] 1.4 {ratio} [facility] Serum or plasma alkaline ignacio sphatase measurement (enzymatic activity/volume)Ordered By: Bobby Gallagher on 07-10-2021 ALP [Catalytic activity/Vol] 43 U/L 32-92 [facility] Serum or plasma aspartate am inotransferase measurement (enzymatic activity/volume)Ordered By: Bobby Gallagher on 07-10-2021 AST [Catalytic activity/Vol] 19 U/L 10-42 [facility] Serum or plasma calcium randi urement (mass/volume)Ordered By: Bobby Gallagher on 07-10-2021 Calcium [Mass/Vol] 9.0 mg/dL 8.2-10.2 [facility] Serum or plasma chloride melonie surement (moles/volume)Ordered By: Bobby Gallagher on 07-10-2021 Chloride [Moles/Vol] 103 mmol/L 95-114 [facility] Serum or plasma glucose randi urement (mass/volume)Ordered By: Bobby Gallagher on 07-10-2021 Glucose [Mass/Vol] 96 mg/dL 70-100 [facility] Comment on above: ADA recommended refe rence rangeRandom Glucose Reference Range is dependent on time and content of last meal. Glucose of more than 200 mg/dL in a nonstressed, ambulatory subject supports the diagnosis of Diabetes Mellitus. Serum or plasma potassium me asurement (moles/volume)Ordered By: Bobby Gallagher on 07-10-2021 Potassium [Moles/Vol] 3.4 mmol/L 3.5-5.1 [facility] Serum or plasma sodium measu rement (moles/volume)Ordered By: Bobby Gallagher on 07-10-2021 Sodium [Moles/Vol] 140 mmol/L 136-146 [facility] Serum or plasma total biliru bin measurement (mass/volume)Ordered By: Bobby Gallagher on 07-10-2021 Bilirubin [Mass/Vol] 0.6 mg/dL 0.3-1.2 [facility] Serum or plasma total carbon dioxide measurement (moles/volume)Ordered By: Bobby Gallagher on 07-10-2021 CO2 [Moles/Vol] 25.5 mmol/L 22.0-30.0 [facility] Serum or plasma urea nitroge n measurement (mass/volume)Ordered By: Bobby Gallagher on 07-10-2021 Urea nitrogen [Mass/Vol] 6 mg/dL 9-23 [facility] Specific gravity Auto test s trip (U) [Rel density]Ordered By: Bobby Gallagher on 07-10-2021 Specific gravity (U) [Rel density] 1.007 1.001-1.030 [facility] Squamous epithelial cells de tection in urine sediment by light microscopyOrdered By: Bobby Gallagher on 07-10-2021 Epithelial cells.squamous LM Ql (Urine sed) 1-2 [HPF] [facility] Urine bacteria detection by automated methodOrdered By: Bobby Gallagher on 07-10-2021 Bacteria Auto Ql (U) 2+ None Seen [facility] Urine clarity by refractomet ry automatedOrdered By: Bobby Gallagher on 07-10-2021 Clarity Refractometry automated (U) Clear Clear [facility] Urine culture routineOrdered By: Bobby Gallagher on 07-10-2021 Bacteria identified Cx Nom (U) Escherichia coli [facility] Urine glucose measurement by automated test strip (mass/volume)Ordered By: Bobby Gallagher on 07-10-2021 Glucose Auto test strip (U) [Mass/Vol] Normal mg/dL Normal [facility] Urine hemoglobin detection b y automated test stripOrdered By: Bobby Gallagher on 07-10-2021 Hemoglobin Auto test strip Ql (U) 3+ Negative [facility] Urine leukocyte esterase det ection by automated test stripOrdered By: Bobby Gallagher on 07-10-2021 Leukocyte esterase Auto test strip Ql (U) 2+ Negative [facility] Urobilinogen Auto test strip (U) [Mass/Vol]Ordered By: Bobby Gallgaher on 07-10-2021 Urobilinogen (U) [Mass/Vol] Normal mg/dL Normal [facility] pH Auto test strip (U)Ordere d By: Bobby Gallagher on 07-10-2021 pH (U) 7.5 [pH] 5.0-9.0 [facility] Keppraon 03-24-2021 KEPP 13 ug/mL Normal [facility] Comment on above: Result Comment: A reference range for Keppra has not been well established. The proposed therapeutic range for seizure control is 6-46 ug/mL. Measurement of Levetiracetam (Keppra) can be elevated due to the presence of both Keppra and Brivaracetam (Briviact) in the patient's system. The medications are structurally similar thus cross reactivity is possible. Pharmacokinetics of Keppra are affected by renal function. The relationship between serum concentrations and toxicity is not known. Performed By: #### DYLON GOMEZ #### [employer] [address] [place] [address] Grazing Aide: Jhon Rios MD #### MG ELAN, CDP #### [facility] [address] [place] [address] Grazing Aide: Marv Nieves DO Lamotrigineon 03-24-2021 Lamotrigine <1.0 Low 3.0-15.0 [facility] Comment on above: Result Comment: Neither a therapeutic or toxic range for Lamotrigine have been well established. Some reports suggest a target for steady-state concentrations of 3 - 15 ug/mL. However, there is not a clear relationship between lamotrigine serum concentrations and clinical response. The assay should be used in conjunction with information available from clinical evaluations and other diagnostic procedures. Multiple measurements of lamotrigine may be needed. Performed By: #### Cielo RON LAMO #### [employer] [address] [place] [address] Grazing Aide: Jhon Rios MD #### MG ELAN, CDP #### [facility] [address] [facility]. [place], [place] [id number] Grazing Aide: Marv Nieves DO CBC with Diffon 03-23-2021 Abs. Basophil 0.00 k/uL Normal 0.0-0.2 [facility] Comment on above: Performed By: #### DYLON GOMEZ #### [address] [address] Grazing Aide: Jhon Rios MD #### CP, MG, CDP #### [facility] [address] [place] [address] Grazing Aide: Marv Nieves DO Abs.Neutrophil (Seg) 4.60 k/uL Normal 1.3-9.1 [facility] Comment on above: Performed By: #### DYLON GOMEZ #### [address] [address] Grazing Aide: Jhon Rios MD #### ELAN, MG, CDP #### [facility] [address] [place] [address] Grazing Aide: Marv Nieves DO Basophils/100 WBC (Bld) 1 % Normal 0-2 [facility] Comment on above: Performed By: #### DYLON GOMEZ #### [address] [address] Grazing Aide: Jhon Rios MD #### ELAN, MG, CDP #### [facility] [place] [address] Grazing Aide: Marv Nieves DO Eosinophils (Bld) [#/Vol] 0.10 10*3/uL Normal 0.0-0.4 [facility] Comment on above: Performed By: #### DYLON GOMEZ #### [address] [address] Grazing Aide: Jhon Rios MD #### CP, MG, CDP #### [facility] [address] [place] [address] Grazing Aide: Marv Nieves DO Eosinophils/100 WBC (Bld) 1 % Normal 0-4 [facility] Comment on above: Performed By: #### DYLON GOMEZ #### [address] [address] Grazing Aide: Jhon Rios MD #### ELAN MG, CDP #### [facility] [address] [place] [address] Grazing Aide: Marv Nieves DO Erythrocyte distribution width (RBC) [Ratio] 12.4 % Normal 11.5-14.9 [facility] Comment on above: Performed By: #### DYLON GOMEZ #### [address] [address] Grazing Aide: Jhon Rios MD #### ELAN MG, CDP #### [facility] [address] [place] [address] Grazing Aide: Marv Nieves DO Hematocrit (Bld) [Volume fraction] 43.3 % Normal 36-46 [facility] Comment on above: Performed By: #### DYLON GOMEZ #### [address] [address] Grazing Aide: Jhon Rios MD #### MG ELAN, CDP #### [facility] [address] [place] [address] Grazing Aide: Marv Nieves DO Hemoglobin (Bld) [Mass/Vol] 14.8 g/dL Normal 12.0-16.0 [facility] Comment on above: Performed By: #### DYLON GOMEZ #### [address] [address] Grazing Aide: Jhon Rios MD #### ELAN MG, CDP #### [facility] [address] [place] [id number] Grazing Aide: Marv Nieves DO Lymphocytes (Bld) [#/Vol] 2.90 10*3/uL Normal 1.2-5.2 [facility] Comment on above: Performed By: #### DYLON GOMEZ #### [address] [address] Grazing Aide: Jhon Rios MD #### ELAN, MG, CDP #### [facility] [address] [place] [address] Grazing Aide: Marv Nieves DO Lymphocytes/100 WBC (Bld) 36 % Normal 25-45 [facility] Comment on above: Performed By: #### DYLON GOMEZ #### [address] [address] Grazing Aide: Jhon Rios MD #### MG ELAN, CDP #### [facility] [address] [place] [address] Grazing Aide: Marv Nieves DO MCH (RBC) [Entitic mass] 30.8 pg Normal 26-34 [facility] Comment on above: Performed By: #### DYLON GOMEZ #### [address] [address] Grazing Aide: Jhon Rios MD #### ELAN MG, CDP #### [facility] [address] [place] [address] Grazing Aide: Marv Nieves DO MCHC (RBC) [Mass/Vol] 34.1 g/dL Normal 31-37 [facility] Comment on above: Performed By: #### DYLON GOMEZ #### [address] [address] Grazing Aide: Jhon Rios MD #### ELAN MG, CDP #### [facility] [facility] [address] [place] [address] Grazing Aide: Marv Nieves DO MCV (RBC) [Entitic vol] 90.1 fL Normal 80-100 [facility] Comment on above: Performed By: #### DYLON GOMEZ #### [address] [address] Grazing Aide: Jhon Rios MD #### ELAN, MG, CDP #### [facility] [address] [place] [address] Grazing Aide: Marv Nieves DO Monocytes (Bld) [#/Vol] 0.50 10*3/uL Normal 0.1-1.3 [facility] Comment on above: Performed By: #### DYLON GOMEZ #### [address] [address] Grazing Aide: Jhon Rios MD #### ELAN, MG, CDP #### [facility] [address] [place] [address] Grazing Aide: Mrav Nieves DO Monocytes/100 WBC (Bld) 6 % Normal 2-8 [facility] Comment on above: Performed By: #### DYLON GOMEZ #### [address] [address] Grazing Aide: Jhon Rios MD #### ELAN, MG, CDP #### [facility] [address] [place] [address] Grazing Aide: Marv Nieves DO Neutrophil (Seg) 56 % Normal 34-64 [facility] Comment on above: Performed By: #### DYLON GOMEZ #### [address] [address] Grazing Aide: Jhon Rios MD #### CP, MG, CDP #### [facility] [address] [place] [address] Grazing Aide: Marv Nieves DO Platelet mean volume (Bld) [Entitic vol] 7.4 fL Normal 6.0-12.0 [facility] Comment on above: Performed By: #### DYLON GOMEZ #### [address] [address] Grazing Aide: Jhon Rios MD #### CP, MG, CDP #### [facility] [address] [place] [address] Grazing Aide: Marv Nieves DO Platelets (Bld) [#/Vol] 279 10*3/uL Normal 150-450 [facility] Comment on above: Performed By: #### DYLON GOMEZ #### [address] [address] Grazing Aide: Jhon Rios MD #### LEAN, MG, CDP #### [facility] [address] [place] [address] Grazing Aide: Marv Nieves DO RBC (Bld) [#/Vol] 4.81 10*6/uL Normal 4.0-5.2 [facility] Comment on above: Performed By: #### DYLON GOMEZ #### [address] [address] Grazing Aide: Jhon Rios MD #### CP, MG, CDP #### [facility] [address] [place] [address] Grazing Aide: Marv Nieves DO WBC (Bld) [#/Vol] 8.1 10*3/uL Normal 4.5-13.5 [facility] Comment on above: Performed By: #### DYLON GOMEZ #### [address] [address] Grazing Aide: Jhon Rios MD #### CP, MG, CDP #### [facility] [address] [place] [address] Grazing Aide: Marv Nieves DO Abs.Imm.Granulocyte NOT REPORTED Normal 0.00-0.30 [facility] Comment on above: Performed By: #### DYLON GOMEZ #### [address] [address] Grazing Aide: Jhon Rios MD #### CP, MG, CDP #### [facility] [address] [place] [address] Grazing Aide: Marv Nieves DO Auto Diff Performed NOT REPORTED Normal [facility] Comment on above: Performed By: #### DYLON GOMEZ #### [address] [address] Grazing Aide: Jhon Rios MD #### CP, MG, CDP #### [facility] [address] [place] [address] Grazing Aide: Marv Nieves DO Immature Granulocyte NOT REPORTED Normal 0 Me [facility] Comment on above: Performed By: #### DYLON GOMEZ #### [address] [address] Grazing Aide: Jhon Rios MD #### CP, MG, CDP #### [facility] [address] [place] [address] Grazing Aide: Marv Nieves DO NRBC Automated NOT REPORTED Normal [facility] Comment on above: Performed By: #### BERTO GOMEZO #### [address] [address] Grazing Aide: Jhon Rios MD #### CP, MG, CDP #### [facility] [address] [facility] [place] [address] Grazing Aide: Marv Nieves DO Platelet Estimate NOT REPORTED Normal [facility] Comment on above: Performed By: #### K EPP, LAMO #### [facility] [address] [place] [address] Grazing Aide: Jhon Rios MD #### CP, MG, CDP #### [facility] [address] [facility] [place] [address] Grazing Aide: Marv Nieves DO RBC morphology finding Nom (Bld) NOT REPORTED Normal [facility] Comment on above: Performed By: #### K EPP, LAMO #### [address] [address] Grazing Aide: Jhon Rios MD #### CP, MG, CDP #### [facility] [address] [facility] [place] [address] Grazing Aide: Marv Nieves DO WBC Morphology NOT REPORTED Normal [facility] Comment on above: Performed By: #### K EPP, LAMO #### [address] [address] Grazing Aide: Jhon Rios MD #### CP, MG, CDP #### [facility] [address] [place] [address] Grazing Aide: Marv Nieves DO Comp Metabolic Profon 2020 (cont.) Normal [facility] Comment on above: Result Comment: Aver age GFR for <20 years old not available. Chronic Kidney Disease: <60 mL/min/1.73sq m Kidney failure: <15 mL/min/1.73sq m eGFR calculated using average adult body mass. Additional eGFR calculator available at: http://www.[employer].com/multiple_crcl_2011.htm Performed By: #### DYLON GOMEZ #### [place] [address] [place] [address] Grazing Aide: Jhon Rios MD #### CP, MG, CDP #### [facility] [address] [place] [address] Grazing Aide: Marv Nieves DO Albumin [Mass/Vol] 4.6 g/dL Normal 3.5-5.2 [facility] Comment on above: Performed By: #### DYLON GOMEZ #### [address] [address] Grazing Aide: Jhon Rios MD #### ELAN, MG, CDP #### [facility] [address] [place] [address] Grazing Aide: Marv Nieves DO Alkaline Phos 67 U/L Normal 35-104 [facility] Comment on above: Performed By: #### DYLON GOMEZ #### [address] [address] Grazing Aide: Jhon Rios MD #### MG ELAN, CDP #### [facility] [address] [place] [address] Grazing Aide: Marv Nieves DO ALT [Catalytic activity/Vol] 10 U/L Normal 5-33 [facility] Comment on above: Performed By: #### DYLON GOMEZ #### [address] [address] Grazing Aide: Jhon Rios MD #### CP, MG, CDP #### [facility] [address] [place] [address] Grazing Aide: Marv Nieves DO Anion gap [Moles/Vol] 10 mmol/L Normal 9-17 [facility] Comment on above: Performed By: #### BERTO GOMEZO #### [address] [address] Grazing Aide: Jhon Rios MD #### CP, MG, CDP #### [facility] [address] [place] [address] Grazing Aide: Marv Nieves DO AST [Catalytic activity/Vol] 12 U/L Normal <32 [facility] Comment on above: Performed By: #### DYLON GOMEZ #### [address] [address] Grazing Aide: Jhon Rios MD #### ELAN, MG, CDP #### [facility] [address] [place] [address] Grazing Aide: Marv Nieves DO Bilirubin [Mass/Vol] 0.40 mg/dL Normal 0.3-1.2 [facility] Comment on above: Performed By: #### DYLON GOMEZ #### [address] [address] Grazing Aide: Jhon Rios MD #### ELAN, MG, CDP #### [facility] [address] [place] [address] Grazing Aide: Marv Nieves DO Calcium [Mass/Vol] 9.3 mg/dL Normal 8.6-10.4 [facility] Comment on above: Performed By: #### DYLON GOMEZ #### [address] [address] Grazing Aide: Jhon Rios MD #### CP, MG, CDP #### [facility] [address] [place] [address] Grazing Aide: Fanelly, Marv, DO Chloride [Moles/Vol] 101 mmol/L Normal 98-107 [facility] Comment on above: Performed By: #### DYLON GOMEZ #### [address] [address] Grazing Aide: Jhon Rios MD #### CP, MG, CDP #### [facility] [address] [place] [address] Grazing Aide: Marv Nieves DO CO2 [Moles/Vol] 25 mmol/L Normal 20-31 [facility] Comment on above: Performed By: #### DYLON GOMEZ #### [address] [address] Grazing Aide: Jhon iRos MD #### ELAN, MG, CDP #### [facility] [address] [place] [address] Grazing Aide: Marv Nieves DO Creatinine [Mass/Vol] 0.71 mg/dL Normal 0.50-0.90 [facility] Comment on above: Performed By: #### DYLON GOMEZ #### [address] [address] Grazing Aide: Jhon Rios MD #### ELAN, MG, CDP #### [facility] [address] [place] [address] Grazing Aide: Marv Nieves DO GFR,non Amer Pediatric GFR requi res additional information. Refer to NKDEP website for Normal >60 [facility] Comment on above: Result Comment: calc ulator. Performed By: #### DYLON GOMEZ #### [address] [address] Grazing Aide: Jhon Rios MD #### CP, MG, CDP #### [facility] [address] [place] [address] Grazing Aide: Marv Nieves DO Glucose [Mass/Vol] 90 mg/dL Normal 70-99 [facility] Comment on above: Performed By: #### DYLON GOMEZ #### [address] [address] Grazing Aide: Jhon Rios MD #### ELAN, MG, CDP #### [facility] [place] [address] Grazing Aide: Marv Nieves DO Potassium [Moles/Vol] 3.8 mmol/L Normal 3.7-5.3 [facility] Comment on above: Performed By: #### DYLON GOMEZ #### [address] [address] Grazing Aide: Jhon Rios MD #### ELAN MG, CDP #### [facility] [address] [place] [address] Grazing Aide: Marv Nieves DO Protein [Mass/Vol] 7.8 g/dL Normal 6.4-8.3 [facility] Comment on above: Performed By: #### DYLON GOMEZ #### [address] [address] Grazing Aide: Jhon Rios MD #### ELAN MG, CDP #### [facility] [place] [address] Grazing Aide: Marv Nieves DO Sodium [Moles/Vol] 136 mmol/L Normal 135-144 [facility] Comment on above: Performed By: #### DYLON GOMEZ #### [address] [address] Grazing Aide: Jhon Rios MD #### ELAN MG, CDP #### [facility] [address] [place] [address] Grazing Aide: Marv Nieves DO Urea nitrogen [Mass/Vol] 11 mg/dL Normal 6-20 [facility] Comment on above: Performed By: #### DYLON GOMEZ #### [address] [address] Grazing Aide: Jhon Rios MD #### ELAN, MG, CDP #### [facility] [address] [place] [address] Grazing Aide: Marv Nieves DO Albumin/Glob Ratio NOT REPORTED Normal 1.0-2.5 [facility] Comment on above: Performed By: #### DYLON GOMEZ #### [address] [address] Grazing Aide: Jhon Rios MD #### ELAN, MG, CDP #### [facility] [address] [place] [address] Grazing Aide: Marv Nieves DO BUN/CRE Ratio NOT REPORTED Normal 9-20 [facility] Comment on above: Performed By: #### DYLON GOMEZ #### [address] [address] Grazing Aide: Jhon Rios MD #### ELAN, MG, CDP #### [facility] [place] [address] Grazing Aide: Marv Nieves DO GFR, Amer NOT REPORTED Normal >60 [facility] Comment on above: Performed By: #### DYLON GOMEZ #### [address] [address] Grazing Aide: Jhon Rios MD #### CP, MG, CDP #### [facility] [address] [place] [address] Grazing Aide: Marv Nieves DO Staging: NOT REPORTED Normal [facility] Comment on above: Performed By: #### DYLON GOMEZ #### [facility] [address] [place] [address] Grazing Aide: Jhon Rios MD #### CP, MG, CDP #### [facility] [address] [place] [address] Grazing Aide: Marv Nieves DO HCG, ,Urineon 03-23 Beta HCG ( test) Ql (U) Negative Normal NEG [facility] Comment on above: Result Comment: Spec imens with hCG levels near the threshold of the test (25 mIU/mL) may give a negative or indeterminate result. In such cases, another test should be performed with a new specimen in 48-72 hours. If early is suspected clinically in this setting, correlation with quantitative serum b-hCG level is suggested. Performed By: #### U HCG #### [facility] [address] [facility] [place] [address] Grazing Aide: Marv Nieves DO Magnesiumon 03-23-2021 Magnesium [Mass/Vol] 2.2 mg/dL Normal 1.7-2.2 [facility] Comment on above: Performed By: #### DYLON GOMEZ #### [facility] [place] [address] Grazing Aide: Jhon Rios MD #### ELAN, MG, CDP #### [facility] [address] [facility] [place] [address] Grazing Aide: Marv Nieves DO CNOVon 12-10-2020 CNOV Office Visit (PLASMN ) ----- KOVACSBHAVNA ([id number]) 2 F Date Time Provider Department 12/10/20 1:45 PM TAMIKO MORIN During your visit today, we recorded the following information about you: Temperature Pulse Blood pressure 97.9 degrees 86/minute 110/77 Tamiko Morin MD 12/10/2020 6:00 PM Signed Plastic Surgery Note CC: Post op HPI: Yonatan is a 20 year old FTM s/p bilateral mastectomy for gender dysphoria on 12/04/20. Patient states he has been painful. He has been taking oxycodone which helps a little but mainly makes him sleep. His drains have been putting out <30 cc for the last 3 days. REVIEW OF SYSTEMS Denies chest pain/SOB Denies fevers/chills Objective: LMP 10/25/2020 (Approximate) PAST MEDICAL HISTORY Diagnosis Date - Anxiety - Depression - Family history of epilepsy - Gender dysphoria - Panic attacks - Seizures (HCC) pseudoseizures - Traumatic brain injury (HCC) PAST SURGICAL HISTORY Procedure Laterality Date - NONE Current Outpatient Medications Medication Sig Dispense Refill - ondansetron (ZOFRAN) 4 mg tablet Take 1 tablet by mouth every 8 hours as needed for nausea/vomiting for up to 7 days. 15 tablet 0 - oxyCODONE IR (ROXICODONE) 5 mg immediate release tablet Take 1 tablet by mouth every 6 hours as needed for pain for up to 7 days. 15 tablet 0 - acetaminophen (TYLENOL) 500 mg tablet Take 2 tablets by mouth every 6 hours for 5 days, and then take 2 tablets every 6 hours as needed for pain for up to 5 days. 50 tablet 0 - docusate sodium (COLACE) 100 mg capsule Take 1 capsule by mouth twice daily for 7 days. 14 capsule 0 - lamoTRIgine (LAMICTAL) 25 mg tablet Take 100 mg by mouth twice daily. - LORazepam (ATIVAN) 1 mg tablet Take 1 mg by mouth q 12 HR. - phenytoin ER (DILANTIN) 100 mg ER capsule Take 300 mg by mouth once daily. - metoprolol succinate ER (TOPROL XL) 100 mg Take by mouth. (Patient not taking: Reported on 11/25/2020 ) - Needle, Disp, 18 G (BD DISPOSABLE NEEDLES) 18 gauge x 1 ndle For use to withdraw testosterone Q2wks 10 Each 5 - BD LUER-MARYLOU SYRINGE 1 mL syringe for use with testosterone injection SQ Q2wks 10 Each 5 - Needle, Disp, 23 G 23 gauge x 3/4 ndle For use with testosterone administration SQ Q2wks 10 Each 5 - testosterone cypionate (DEPO-TESTOSTERONE) 200 mg/mL injection INJECT 100 MG (0.5 ml) SQ Q2wks 2 mL 5 - propranolol (INDERAL) 10 mg tablet Take 1 tablet by mouth three times daily. (Patient not taking: Reported on 09/03/2020 ) 90 tablet 2 No current facility-administered medications for this visit. ALLERGIES Allergen Reactions - Codeine Hives, Itching PE: AANDOx3, NAD No s/s of infection Bilateral breast incisions healing well Minimal bruising on bilateral breasts A/P: S/p bilateral mastectomy for gender dysphoria, looks excellent Bilateral breast drains removed Discussed activity restrictions Continue wearing binder for another 2 weeks Ok to swim in 2 weeks Follow up virtually in 1 month The patient is seen and examined by Dr. Morin and the following reflects his service. Scribed by Oliva Santana RN. I agree with the Chief Complaint, ROS, and Past Histories independently gathered by the clinical sales support specialist and the remaining scribed note accurately describes my personal service to the patient. Tamiko Morin MD Referring Provider: SELF [200] Allergies As of Date: 12/10/2020 Noted Allergy Reaction CODEINE 07/17/2017 4 - Hives 9 - Itching Date Reviewed: 12/10/2020 Reviewed by: Oliva Santana RN - Fully Assessed Reason for Visit: Post Op [174] Primary Visit Diagnosis:Gender dysphoria [F64.9] Prescriptions as of 12/10/2020 Sig: ONDANSETRON HCL 4 MG TABLET Take 1 tablet by mouth every * OXYCODONE 5 MG TABLET Take 1 tablet by mouth every * ACETAMINOPHEN 500 MG TABLET Take 2 tablets by mouth every* DOCUSATE SODIUM 100 MG CAPSULE Take 1 capsule by mouth twice* LAMOTRIGINE 25 MG TABLET Take 100 mg by mouth twice da* PHENYTOIN SODIUM EXTENDED 100* Take 300 mg by mouth once lizett* NEEDLE (DISP) 18 GAUGE X 1 For use to withdraw testoster* BD LUER-MARYLOU SYRINGE 3 ML 23 X* 1 mL syringe for use with mamta* NEEDLE (DISP) 23 GAUGE X 3/4 For use with testosterone adm* TESTOSTERONE CYPIONATE 200 MG* INJECT 100 MG (0.5 ml) SQ Q2w* PROPRANOLOL 10 MG TABLET Take 1 tablet by mouth three * LORAZEPAM 1 MG TABLET Take 1 mg by mouth q 12 HR. METOPROLOL SUCCINATE ER 100 M* Take by mouth. Patient not taking: Reported on 11/25/2020 Problem List As Of Date 12/10/2020 Noted Resolved Social anxiety disorder [F40.10] 09/04/2018 Gender dysphoria in adolescent and adult [F64.0]09/04/2018 PTSD (post-traumatic stress disorder) [F43.10] 10/11/2018 Gender dysphoria [F64.9] Psychogenic nonepileptic seizure [F44.5] Anxiety disorder [F41.9] 07/15/2017 Panic attacks [F41.0] Acute post-traumatic heada (more content not included)... Normal [facility] Basic Metabolic Panlon 12-05 Anion gap [Moles/Vol] 14 mmol/L Normal 9-18 [facility] Comment on above: Performed By: #### C NARCISO, BMP ####[facility] [place], [place] [phone] Calcium [Mass/Vol] 9.0 mg/dL Normal 8.5-10.2 [facility] Comment on above: Performed By: #### C NARCISO, BMP ####[facility] [place], [place] [phone] Chloride [Moles/Vol] 104 mmol/L Normal 97-105 [facility] Comment on above: Performed By: #### C NARCISO, BMP ####[facility] [place], [place] [phone] CO2 [Moles/Vol] 19 mmol/L Low 22-30 [facility] Comment on above: Performed By: #### C NARCISO, BMP ####[facility] [place], [place] [phone] Creatinine [Mass/Vol] 0.60 mg/dL Normal 0.58-0.96 [facility] Comment on above: Performed By: #### C NARCISO, ELKE ####[facility] [place], [place] [phone] eGFR- Amer. >60 Normal [facility] Comment on above: Performed By: #### C NARCISO, BMP ####[facility] [place], [place] [phone] eGFR-All Other Races >60 Normal [facility] Comment on above: Result Comment: eGFR (Estimated GFR) Units of measure: mL/min/1.73 meters squared eGFR is derived from the reexpressed MDRD Study equation using the following parameters: serum creatinine, age, gender and race. The creatinine assay has been calibrated to be traceable to IDMS. An eGFR <60 mL/min/1.73m2 for >3 months is consistent with chronic kidney disease. Refer to KDOQI guidelines for clinical interpretation. In patients with unstable renal function, e.g. those with acute kidney injury, the eGFR may not accurately reflect actual GFR. Performed By: #### C NARCISO, BMP ####[facility] [place], [place] [phone] Glucose [Mass/Vol] 87 mg/dL Normal 74-99 [facility] Comment on above: Result Comment: The [place] Diabetes Association (ADA) provides guidance for cutoff values for fasting glucose and random glucose. The ADA defines fasting as no caloric intake for at least 8 hours. Fasting plasma glucose results between 100 to 125 mg/dL indicate increased risk for diabetes (prediabetes). Fasting plasma glucose results greater than or equal to 126 mg/dL meet the criteria for diagnosis of diabetes. In the absence of unequivocal hyperglycemia, results should be confirmed by repeat testing. In a patient with classic symptoms of hyperglycemia or hyperglycemic crisis, random plasma glucose results greater than or equal to 200 mg/dL meet the criteria for diagnosis of diabetes. Reference: Standards of Medical Care in Diabetes 2016, [place] Diabetes Association. Diabetes Care. 2016.39(Suppl 1). Performed By: #### C NARCISO, BMP ####[facility], [place] [phone] Potassium [Moles/Vol] 4.6 mmol/L Normal 3.7-5.1 [facility] Comment on above: Performed By: #### C BC, BMP ####[place] [address], [place] [phone] Sodium [Moles/Vol] 137 mmol/L Normal 136-144 [facility] Comment on above: Performed By: #### C BC, BMP ####[place] [address], [place] [phone] Urea nitrogen [Mass/Vol] 8 mg/dL Normal 7-21 [facility] Comment on above: Performed By: #### C BC, BMP ####[place] [address], [place] [phone] CBCon 12-05-2020 Absolute nRBC <0.01 Normal <0.01 [facility] Comment on above: Performed By: #### C BC, BMP ####[place] [address] [phone] Erythrocyte distribution width (RBC) [Ratio] 12.0 % Normal 11.5-15.0 [facility] Comment on above: Performed By: #### C BC, BMP ####[place] [address], [place] [phone] Hematocrit (Bld) [Volume fraction] 39.5 % Normal 36.0-46.0 [facility] Comment on above: Performed By: #### C BC, BMP ####[place] [address], [place] [phone] Hemoglobin (Bld) [Mass/Vol] 13.7 g/dL Normal 11.5-15.5 [facility] Comment on above: Performed By: #### C BC, BMP ####[place] [address] [place], [place] [phone] MCH 31.4 pG Normal 26.0-34.0 [facility] Comment on above: Performed By: #### C BC, BMP ####[place] [address], [place] [phone] MCHC (RBC) [Mass/Vol] 34.7 g/dL Normal 30.5-36.0 [facility] Comment on above: Performed By: #### C BC, BMP ####[place] [address], [place] [phone] MCV (RBC) [Entitic vol] 90.4 fL Normal 80.0-100.0 [facility] Comment on above: Performed By: #### C NARCISO, BMP ####[place] [address], [place] [phone] Platelet mean volume (Bld) [Entitic vol] 9.8 fL Normal 9.0-12.7 [facility] Comment on above: Performed By: #### C NARCISO, BMP ####[place] [address], [place] [phone] Platelets (Bld) [#/Vol] 181 10*3/uL Normal 150-400 [facility] Comment on above: Performed By: #### C BC, BMP ####[place] [address], [place] [phone] RBC (Bld) [#/Vol] 4.37 10*6/uL Normal 3.90-5.20 [facility] Comment on above: Performed By: #### C BC, BMP ####[place] [address], [place] [phone] WBC (Bld) [#/Vol] 13.42 10*3/uL High 3.70-11.00 [facility] Comment on above: Performed By: #### C BC, BMP ####[place] [address] [place], [place] [phone] NURSING PROGon 12-05-2020 NURSING PROG HNO ID: [id number] Author: Trina Vasquez RN Service: ? Author Type: Registered Nurse Type: Nursing Progress Note Filed: 12/05/2020 8:45 AM Note Text: Admission/Transfer Note PATIENT NAME: Bhavna Kovacs Patient admitted from PACU via stretcher in stable condition. Actions taken: Patient oriented to room, call light function, prescribed activities, Patient rights and Quiet at night. The patient has been instructed on the plan of care and fall precautions. This note was completed by: Trina Vasquez [facility] ANES El 12-04-2020 ANES POST HNO ID: [id number] Author: Shady Law MD Service: Anesthesiology Author Type: Anesthesiologist Type: Anesthesia PostOp Filed: 12/04/2020 5:20 PM Note Text: POST ANESTHESIA EVALUATION NOTE SERVICE DATE: 12/04/2020 SERVICE TIME: 5:20 PM : 2001 Vitals: 12/04/20 1245 12/04/201653 Temp: 37.1 ?C (98.8 ?F) 36.6 ?C (97.9 ?F) 12/04/20 1245 12/04/20 16512/04/20 17012/04/201714 BP: 124/81 99/60 101/57 106/60 12/04/20 1245 12/04/20 16512/04/20 17012/04/201714 Pulse: 90 64 (!) 59 69 12/04/20 1245 12/04/20 1654 12/04/20 1700 12/04/201714 Resp: 18 20 18 14 12/04/20 1245 12/04/20 16512/04/20 17012/04/201714 SpO2: 100% 100% 100% 100% Validated Vital Signs: Yes POST ANES STATUS: No apparent anesthetic complications. The patient is appropriately hydrated with stable respiratory and cardiovascular status. Patient has safe and adequate airway control. The patient has appropriate pain relief and no significant post operative nausea or vomiting. The patient has achieved baseline mental status. Intra-Operative Events: No Significant Anesthesia Events Further assessment by Anesthesia Service: None Other Remarks: SIGNATURE: Shady Law MD PATIENT NAME: Bhavna Kovacs DATE: December 04, 2020 TIME: 5:20 PM PAGER/CONTACT #: [phone] [facility] BRIEF OP NOTon 12-04-2020 BRIEF OP NOT HNO ID: [id number] Author: Linnea Leslie DO Service: Plastic Surgery Author Type: Resident Type: Brief Op Note Filed: 12/04/2020 4:08 PM Note Text: PLASTIC SURGERY - BRIEF OP NOTE Patient Name: Bhavna Kovacs Log ID: [id number] Surgery Date: 12/04/2020 Surgeon(s) and Supervisor Tower(s): Surgeon(s) and Role: * Tamiko Morin MD - Primary * Linnea Leslie DO - Resident - Assisting * Arian Randhawa DO - Fellow Sita Sandy MD - Resident - Assistng Procedure(s) (LRB): Bilateral mastectomy for gender dysphoria Incision/Procedure Start Time: 2:34 PM Incision Close/Procedure End Time: 4:07 PM Anesthesia: Local and General Findings: Periareolar incisions Estimated Blood Loss: 20 mls Urine Output: NA Drains: 2 JPs - one from each side Specimens: Specimen ID Type Site Comments Sent To path 1 Tissue Other See Note left breast, short stitch nipple, long stitch tail of chaudhry Pathology Routine path 2 Tissue Other See Note right breast, short stitch nipple, long stitch tail of chaudhry Pathology Routine Complications: None Preop Diagnosis Code(s): Gender dysphoria Postop Diagnosis: Same Post-op Plan: Extended recovery C José Luis Leslie DO Plastic AND Reconstructive Surgery Hand Surgery Resident - PGY-2 Pager: [phone] *After 6PM AND on weekends, please page [phone] (Plastic Surgery Production Assistant)* [facility] CONSULTon 12-04-2020 CONSULT HNO ID: [id number] Author: Fara Navas MD Service: Neurology Adult Epilepsy Author Type: Fellow Type: Consults Filed: 12/04/2020 8:11 PM Note Text: NEURO EPILEPSY CONSULT NOTE SERVICE DATE: 12/04/2020 SERVICE TIME: 7PM SERVICE: Plastic Surgery Subjective CHIEF COMPLAINT: Episode of shaking PRESENT ILLNESS: This is a 20 year old transgender male with a medical history of PNES and afib who was admitted for a bilateral mastectomy which was performed today on 12/04/20. Epilepsy consulted after the patient had a 1 minute episode of shaking. The surgery went well today. In the post-op unit the patient had a 1 minute episode of shaking his head side to side (like yes/no). 2mg of Ativan was given. The patient was drowsy but answering questions nodding yes/no on examination. His boyfriend (who accompanied him to surgery) was reached by phone. He stated that his last episode of shaking was 1 month ago and they occur sporadically. He stated that he had an evaluation at [facility] that did not show anything and an EEG at home which did not show anything . He describes episodes of general shaking that can last from 5 to 10 minutes. Further history was limited as the patient was drowsy. Per chart review, he has ED visits at [facility] on 09/05, 10/12, 10/15, and 10/25 for convulsions. Between August and September of 2020 he was started on Dilantin, unclear when he was started on Lamictal. Per notes, his local Neurologist is Dr. Marr. According to the chart, he is taking Dilantin, Lamictal, and Ativan. Unclear if Lamictal and Ativan are for seizure or mood. Unable to access records from his local Neurologist. PREVIOUS EVALUATIONS: EMU admission 11/2019: Bhavna Kovacs is a 19 year old adult who was admitted to the [facility] EMU on 12/05/2019 until 12/11/2019 for diagnosis. He was not admitted on any AEDs, and upon admission reports that he had a fall due to an episode the day before admission and he did not have any imaging or testing done at OSH. CT head with and without contrast ordered on admission with unremarkable results. Patient noted to have 2 typical events without EEG change. After his first event, he was c/o 8/10 chest pain, exacerbated by deep breathing and reproducible with palpation. EKG, cardiac enzymes and CKMB WNL. No further intervention or recurrence of chest pain. Please see separate video-EEG report for details. CURRENT AEDs: (per chart) Lamotrigine 100mg BID Phenytoin ER 300mg daily Lorazepam 1mg BID Current Facility-Administered Medications Medication Dose Route Frequency - [MAR Hold due to Transfer] lactated ringers iv infusion 5-30 mL/hr INTRAVENOUS CONTINUOUS - diphenhydrAMINE 25 mg (BENADRYL) 25 mg ORAL q 6 H PRN Or - diphenhydrAMINE 25 mg injection (BENADRYL) 25 mg INTRAVENOUS q 6 H PRN - benzocaine-menthol 1 Lozenge (CEPACOL) 1 Lozenge MUCOUS MEMBRANE (TOPICAL MOUTH AND THROAT) q 2 H PRN Or - phenol 1 Keyser (CHLORASEPTIC) 1 Keyser MUCOUS MEMBRANE (TOPICAL MOUTH AND THROAT) q 2 H PRN - acetaminophen 1,000 mg tab(s) (TYLENOL) 1,000 mg ORAL q 6 H Followed by - [START ON 12/09/2020] acetaminophen 650 mg tab(s) (TYLENOL) 650 mg ORAL q 4 H PRN - oxyCODONE IR 5-10 mg tab(s) (ROXICODONE) 5-10 mg ORAL q 4 H PRN - lactated ringers iv infusion 100 mL/hr INTRAVENOUS CONTINUOUS - fentaNYL 50 mcg/mL 25-50 mcg injection (SUBLIMAZE) 25-50 mcg INTRAVENOUS q 10 MIN PRN - diphenhydrAMINE 25-50 mg injection (BENADRYL) 25-50 mg INTRAVENOUS q 6 H PRN - ondansetron (PF) 2-4 mg injection (ZOFRAN) 2-4 mg INTRAVENOUS q 6 H PRN ALLERGIES Allergen Reactions - Codeine Hives, Itching PAST MEDICAL HISTORY Diagnosis Date - Anxiety - Depression - Family history of epilepsy - Gender dysphoria - Panic attacks - Seizures (HCC) pseudoseizures - Traumatic brain injury (HCC) PAST SURGICAL HISTORY Procedure Laterality Date - NONE FAMILY HISTORY Problem Relation Age of Onset - No Known Problems Mother - other (overweight) Father - No Known Problems Sister - No Known Problems Brother - Heart Maternal Grandmother valve replacement - Heart Maternal Grandfather 48 - No Known Problems Paternal Grandmother - Diabetes Paternal Grandfather - Hypertension Paternal Grandfather - Lipids Paternal Grandfather - Stroke Paternal Grandfather - Heart Paternal Grandfather - other (smokes) Paternal Grandfather - No Known Problems Sister - No Known Problems Brother Social History Tobacco Use - Smoking status: Never Smoker - Smokeless tobacco: Never Used Vaping Use - Vaping Use: Never used Substance Use Topics - Alcohol use: Not Currently - Drug use: Not Currently Types: Marijuana Objective REVIEW OF SYSTEMS: Limited due to drowsiness GENERAL EXAMINATION: BP 110/63 Pulse 88 Temp 36.6 ?C (97.9 ?F) (Temporal Artery) Resp 18 LMP 10/25/2020 (Approximate) SpO2 99% General Medical Exam: General: Well appearing, com (more content not included)... Normal [facility] NURSING PROGon 12-04-2020 NURSING PROG HNO ID: [id number] Author: Mohini Cao RN Service: Nursing Author Type: Registered Nurse Type: Nursing Progress Note Filed: 12/04/2020 9:47 PM Note Text: Nursing Progress Note Patient Name: Bhavna Kovacs Patient Location: [place] [address] At 1730, pt started shaking his head back and forth, not responding to any questions, and starting off into space. PACU resident came to bedside and ordered 2 mg of ativan. 2 mg of IV ativan was given at 1748. Pt's vitals were stable, oxygen saturation and HR levels did not change during this time. Epilepsy and plastics team (primary service) was notified. Dr. Leslie from plastics came to bedside to assess pt and Dr. Navas from epliepsy assessed the pt. After speaking to patient's boyfriend, Demetrio and the father, the plan was to not change the patient's current medication that he is on and no further seizure monitoring. [facility] ordered telemetry for the nursing floor unit to for continuous monitoring of vitals. Around, 2049, pt had another seizure , he was found shaking his head back and forth, not responding to questions. Plastic notified and epilepsy. Epilepsy stated to give his epileptic medications and will continue to monitor. VSS stable during this time. This note was completed by: Mohini Vidal [facility] OPERATIVE NOon 12-04-2020 OPERATIVE NO HNO ID: [id number] Author: Tamiko Morin MD Service: Plastic Surgery Author Type: Physician Type: Operative Report Filed: 12/12/2020 11:08 AM Note Text: [facility] - Operative Report [id number] [address] [place] BHAVNA KOVACS : 2000 AGE: 20. SEX: F PATIENT TYPE: A HOSP SVC: PLAS LOCATION: [id number] ATTENDING PHYSICIAN: Tamiko Morin M.D. CSN NUMBER: [id number] DATE OF SURGERY/PROCEDURE: 12/04/2020 INCISION/PROCEDURE START TIME: 02:34 p.m. INCISION CLOSE/PROCEDURE END TIME: 04:07 p.m. I performed the entire case with Dr. Leslie, Dr. Randhawa, and, Dr. Langley. PREOPERATIVE DIAGNOSIS: Gender dysphoria. POSTOPERATIVE DIAGNOSIS: Gender dysphoria. SURGEON: Tamiko Morin M.D. MINE PATROL: 1. Dr. Linnea Leslie. 2. Arian Randhawa. 3. Sita Langley. SURGERY/PROCEDURE: Bilateral subcutaneous mastectomy through a periareolar incision. ANESTHESIA: General. OPERATIVE INDICATIONS: This is a very thin young transgender male desiring masculinization of the chest. The patient had a small breast size and excellent skin quality. The patient also had fairly small nipple-areolar complexes. The plan was to perform a complete breast removal through a periareolar incision. The patient was aware of the risks, benefits, alternatives, chose to proceed. DESCRIPTION OF PROCEDURE: The patient was marked, confirmed, and a safety check-in performed. He underwent anesthesia without difficulty. He was prepped and draped in usual sterile fashion. I started this operation after a verbal time-out by tumescing a weight based safe dose of lidocaine with adrenaline with TXA admixed. The right side was started first. I made the incision here. I left approximately 1 cm of gland underneath the nipple-areolar complex. I then identified the capsule. This patient had an excellent capsule and despite how thin the patient was, it was a fairly straightforward dissection making the mastectomy flaps. These were made on the capsule and although quite thin, this was a complete removal of the breast it from the skin. The only breast that was left was approximately a 1.5 x 2 cm by approximately 5 mm area of breast tissue under the nipple itself. I then elevated the breast off the pectoralis and serratus fascia. These two planes in the subglandular and the subcutaneous planes were joined with the cautery device and the specimens were removed. These were small breast in weight, but fairly wide of approximately 11-12 cm in diameter. This was a complete dissection including the tail of Chaudhry. The specimen was oriented with sutures and a near identical procedure was performed on the left side. These were meticulous dissections. However, because of the tumescence and the patient's excellent tissue quality, these were expeditious and nice dissections. Once the skin flaps were made on this side as well, I then performed a subglandular dissection and joined the superficial and the deep planes with cautery device removing the breast including the entire tail of Chaudhry. This was also sent for pathology and both sides were insepcted for hemostasis, which was excellent. A drain placed. They were irrigated out and the wounds were closed with parenchymal sutures and Monocryl sutures in the deep dermis and intra-articular sutures. SPECIMENS: Right and left breast. DRAIN: One drain per side. COMPLICATIONS: No complications. FINDINGS: Good esthetic outcome on the table. Tamiko Morin M.D. RI:[id number] /[id number] Normal [facility] SURGICAL PATHOLOGYon 021 SURGICAL PATHOLOGY Specimen originated from [facility] Specimen #: [id number] Submitting Physician: TAMIKO MORIN M.D. (A60) FINAL DIAGNOSIS 1. Breast, left, mastectomy (A): - Benign breast tissue with dense stromal fibrosis. 2. Breast, right, mastectomy (B): - Benign breast tissue with dense stromal fibrosis. AD/FB 12/08/2020 Raoul Kerr M.D. (Electronic Signature) SPECIMEN SUBMITTED A: LEFT BREAST B: RIGHT BREAST CLINICAL DATA GENDER DYSPHORIA A: SHORT STITCH NIPPLE, LONG STICH TAIL OF CHAUDHRY GROSS DESCRIPTION A. Received in formalin labeled left breast, short stitch nipple, long stitch tail of Chaudhry is a 86 g and 10 cm (superiorinferior) x 7.5 cm (mediallateral) x 2 cm (anteriorposterior) oriented mastectomy specimen without skin and nipple. Skeletal muscle is not appreciated. The specimen is inked as follows: Superior radialblue, inferior radialgreen, deepblack, subareolarpurple. Imaging in pathology reveals no clips. Sectioning of the specimen from medial to lateral into 13 slices reveals diffusely fibrous tissue with rare yellow, fatty areas (5%). No distinct mass is identified. Cotton Bag Clipper sections are submitted as follows: A1 slice 5 upper inner quadrant (superior radial, and posterior margin), A2 slice 9 upper outer quadrant (superior radial and posterior margin), A3 slice 6 lower inner quadrant (inferior radial and posterior margin), A4 slice 10 lower outer quadrant (inferior radial and posterior margin), A5 slice 7 central (superior, inferior radial, subareolar, and posterior margin). Time removed from patient: Not documented. Time placed in formalin: Not documented. B. Received in formalin labeled right breast, short stitch nipple, long stitch tail of Chaudhry is a 83 g and 13 cm (mediallateral) x 8.5 cm (superiorinferior) x 1.5 cm (anteriorposterior) oriented mastectomy specimen without skin and nipple. Skeletal muscle is not appreciated. The specimen is inked as follows: Superior radialblue, inferior radialgreen, deepblack, subareolarpurple. Imaging in pathology reveals no clips. Sectioning of the specimen from medial to lateral into 15 slices reveals diffusely fibrous tissue with rare yellow, fatty areas (5%). No distinct mass is identified. Cotton Bag Clipper sections are submitted as follows: B1 slice 8 upper inner quadrant (superior radial, and posterior margin), B2 slice 2 upper outer quadrant (superior radial and posterior margin), B3 slice 9 lower inner quadrant (inferior radial and posterior margin), B4 slice 3 lower outer quadrant (inferior radial and posterior margin), B5 slice 6 central (superior, inferior radial, subareolar, and posterior margin). Time removed from patient: Not documented. Time placed in formalin: Not documented. LDF 12/05/2020 [place] [address] Date of Report: 12/08/2020 Date of Procedure: 12/04/2020 Date of Receipt: 12/04/2020 Submitted by: TAMIKO MORIN M.D. (A60) Location: [facility] interpretation performed at [place] [address] [address] [address]. CLIA Number: [id number] Normal [facility] Self Check COVIDon 1 SARS-CoV-2 (COVID-19) RNA ISABEL+probe Ql (Unsp spec) UPPER RESPIRATORY TRACT SWAB Normal [facility] Comment on above: Performed By: #### H CCOVD ####[facility] [place], [place] [id number] SARS-CoV-2 (COVID-19) RNA ISABEL+probe Ql (Unsp spec) Negative for COVID19 (SARS CoV2) by RT-PCR or equivalent method. Normal Negative for COVID19 (SARS CoV2) by RT-PCR or equivalent method. [facility] Comment on above: Result Comment: This test was developed and its performance characteristics determined by [facility]'s [facility] [place]. This test has been authorized by FDA under an Emergency Use Authorization (EUA). This test has been validated in accordance with the FDA's Guidance Document Policy for Diagnostics Testing in Laboratories Certified to Perform High Complexity Testing under CLIA prior to Emergency use Authorization for Coronavirus Disease 2019 during the Public Health Emergency issued on August 25, 2019. Test performed by [facility], [facility] [place], [address] [place], [place] [address]. Performed By: #### H CCOVD ####[facility] [address] [place], [place] [id number] CNOVon 11-26-2020 CNOV Office Visit (PLASMN ) ----- BHAVNA KOVACS ([id number]) 2 F Date Time Provider Department 11/26/20 2:45 PM TAMIKO MORIN During your visit today, we recorded the following information about you: Temperature Pulse Blood pressure Weight 98.7 degrees 83/minute 127/83 49.2 kg Height 1.549 m Tamiko Morin MD 11/27/2020 3:57 PM Signed Plastic Surgery Note CC: Pre op HPI: Yonatan is a 20 year old adult here for pre op consent. He is scheduled for a bilateral mastectomy for gender dysphoria on 12/04/20. He was seen by anesthesia yesterday and was cleared for surgery. REVIEW OF SYSTEMS Unchanged since last visit on 09/03/20. Objective: LMP 10/25/2020 (Approximate) PAST MEDICAL HISTORY Diagnosis Date - Anxiety - Depression - Family history of epilepsy - Gender dysphoria - Panic attacks - Seizures (HCC) pseudoseizures - Traumatic brain injury (HCC) PAST SURGICAL HISTORY Procedure Laterality Date - NONE Current Outpatient Medications Medication Sig Dispense Refill - lamoTRIgine (LAMICTAL) 25 mg tablet Take 100 mg by mouth twice daily. - LORazepam (ATIVAN) 1 mg tablet Take 1 mg by mouth q 12 HR. - phenytoin ER (DILANTIN) 100 mg ER capsule Take 300 mg by mouth once daily. - metoprolol succinate ER (TOPROL XL) 100 mg Take by mouth. (Patient not taking: Reported on 11/25/2020 ) - Needle, Disp, 18 G (BD DISPOSABLE NEEDLES) 18 gauge x 1 ndle For use to withdraw testosterone Q2wks 10 Each 5 - BD LUER-MARYLOU SYRINGE 1 mL syringe for use with testosterone injection SQ Q2wks 10 Each 5 - Needle, Disp, 23 G 23 gauge x 3/4 ndle For use with testosterone administration SQ Q2wks 10 Each 5 - venlafaxine ER (EFFEXOR XR) 37.5 mg 24 hr capsule Take 1 capsule by mouth once daily. (Patient not taking: Reported on 11/25/2020 ) 30 capsule 0 - testosterone cypionate (DEPO-TESTOSTERONE) 200 mg/mL injection INJECT 100 MG (0.5 ml) SQ Q2wks 2 mL 5 - propranolol (INDERAL) 10 mg tablet Take 1 tablet by mouth three times daily. (Patient not taking: Reported on 09/03/2020 ) 90 tablet 2 No current facility-administered medications for this visit. ALLERGIES Allergen Reactions - Codeine Hives, Itching PE: AANDOx3, NAD Again, very small person, narrow nipple areolar complex. Small breast with good skin quality. A/P: Yonatan is a 20 year old adult here for pre op consent Informed consent obtained - bilateral mastectomy for gender dysphoria plan periareolar Discussed surgery and what to expect post op Follow up at the time of surgery Risk, benefits, terms discussed expectations discussed The patient is seen and examined by Dr. Morin and the following reflects his service. Scribed by Oliva Trejo RN. I agree with the Chief Complaint, ROS, and Past Histories independently gathered by the clinical sales support specialist and the remaining scribed note accurately describes my personal service to the patient. Tamiko Morin MD Referring Provider: SELF [200] Allergies As of Date: 11/26/2020 Noted Allergy Reaction CODEINE 07/17/2017 4 - Hives 9 - Itching Date Reviewed: 11/26/2020 Reviewed by: Estelle Colin Ma - Fully Assessed Reason for Visit: Pre-Op Exam [87] Cmt: Consent Primary Visit Diagnosis:Gender dysphoria [F64.9] Prescriptions as of 11/26/2020 Sig: LAMOTRIGINE 25 MG TABLET Take 100 mg by mouth twice da* LORAZEPAM 1 MG TABLET Take 1 mg by mouth q 12 HR. PHENYTOIN SODIUM EXTENDED 100* Take 300 mg by mouth once lizett* METOPROLOL SUCCINATE ER 100 M* Take by mouth. Patient not taking: Reported on 11/25/2020 NEEDLE (DISP) 18 GAUGE X 1 For use to withdraw testoster* BD LUER-MARYLOU SYRINGE 3 ML 23 X* 1 mL syringe for use with mamta* NEEDLE (DISP) 23 GAUGE X 3/4 For use with testosterone adm* VENLAFAXINE ER 37.5 MG CAPSUL* Take 1 capsule by mouth once * Patient not taking: Reported on 11/25/2020 TESTOSTERONE CYPIONATE 200 MG* INJECT 100 MG (0.5 ml) SQ Q2w* PROPRANOLOL 10 MG TABLET Take 1 tablet by mouth three * Patient not taking: Reported on 09/03/2020 Problem List As Of Date 11/26/2020 Noted Resolved Social anxiety disorder [F40.10] 09/04/2018 Gender dysphoria in adolescent and adult [F64.0]09/04/2018 PTSD (post-traumatic stress disorder) [F43.10] 10/11/2018 Gender dysphoria [F64.9] 11/20/2019 Psychogenic nonepileptic seizure [F44.5] Anxiety disorder [F41.9] 07/15/2017 Panic attacks [F41.0] Acute post-traumatic headache, not intractable *12/05/2019 12/11/2019 Abnormal weight loss [R63.4] 12/05/2019 Low TSH level [R79.89] 12/06/2019 Mild protein-calorie malnutrition (HCC) [E44.1] 12/07/2019 Frequent headaches [R51.9] 07/20/2017 Sleep difficulties [G47.9] 08/31/2018 Encounter Status:Closed by TAMIKO MORIN on 11/27/20 Normal [facility] HISTORY PHYSICALon HISTORY PHYSICAL HNO ID: [id number] Author: Sarah Schmitz APRN.AMELIA Service: ? Author Type: Nurse Practitioner Type: HANDP Filed: 11/27/2020 12:49 PM Note Text: HISTORY AND PHYSICAL EXAMINATION SERVICE DATE: 11/25/2020 SERVICE TIME: 12:48 PM PRIMARY CARE PHYSICIAN: Eric French Sr, MD REASON FOR VISIT: Bhavna Kovcas is a 20 year old adult who is scheduled for Procedure(s): MASTECTOMY SIMPLE BILATERAL (Bilateral) at the request of Dr. Berger for consultation. My final recommendation will be communicated back to the requesting physician by way of shared medical record or letter. Subjective The patient has the following: ACTIVE PROBLEM LIST Social Anxiety Disorder Gender Dysphoria in Adolescent and Adult Ptsd (Post-Traumatic Stress Disorder) Psychogenic Nonepileptic Seizure Anxiety Disorder Panic Attacks Abnormal Weight Loss Low Tsh Level Mild Protein-Calorie Malnutrition (Hcc) Frequent Headaches Sleep Difficulties CHIEF COMPLAINT: Gender dysmorphia HPI: 20 yo female identifies as male and is electing for a bilateral mastectomy. REVIEW OF SYSTEMS: General: No weight loss, malaise or fevers. Neurological: Positive for: seizures. Respiratory: No history of current cough or dyspnea, or pneumonia in the past 6 weeks. No history of respiratory/pulmonary symptoms or problems. Cardiovascular: No history of HTN requiring medication, no history of angina, CHF, AL, cardiac surgery or stents. Denies rest pain, gangrene or revascularization/amputat ion for PVD. No history of cardiovascular symptoms or problems. GI: No history of GI symptoms or problems. No history of esophageal varices, recent ascites, or ETOH greater than 2 drinks per day. : No history of dysuria, frequency or incontinence, stones or chronic kidney disease. No difficulty urinating, nocturia > 1 time per night or hematuria. 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 . Negative for abnormal vaginal bleeding, abnormal vaginal discharge. Endocrine: No history of diabetes. Has not taken steroids within the past 30 days. No history of endocrinological symptoms or problems. Hematology: No history of bleeding or clotting disorder. Patient is not taking anti-coagulation or platelet medications. No history of hematological symptoms or problems. Oncology: No history of CA metastasis, chemo within 30 days, or radiotherapy within 90 days. No history of oncological symptoms or problems. Psych: PTSD Positive for: anxiety. Musculoskeletal: Negative for joint pain or swelling, back pain or muscle pain. Skin: Negative for lesions, rash and itching. PAST MEDICAL HISTORY Diagnosis Date - Anxiety - Depression - Family history of epilepsy - Gender dysphoria - Panic attacks - Seizures (HCC) pseudoseizures - Traumatic brain injury (HCC) PAST SURGICAL HISTORY Procedure Laterality Date - NONE FAMILY HISTORY Problem Relation Age of Onset - No Known Problems Mother - other (overweight) Father - No Known Problems Sister - No Known Problems Brother - Heart Maternal Grandmother valve replacement - Heart Maternal Grandfather 48 - No Known Problems Paternal Grandmother - Diabetes Paternal Grandfather - Hypertension Paternal Grandfather - Lipids Paternal Grandfather - Stroke Paternal Grandfather - Heart Paternal Grandfather - other (smokes) Paternal Grandfather - No Known Problems Sister - No Known Problems Brother Social History Tobacco Use - Smoking status: Never Smoker - Smokeless tobacco: Never Used Vaping Use - Vaping Use: Never used Substance Use Topics - Alcohol use: Not Currently - Drug use: Not Currently Types: Marijuana Prior to Admission medications as of 11/25/20 1028 Medication Sig Last Dose Taking lamoTRIgine (LAMICTAL) 25 mg tablet Take 100 mg by mouth twice daily. Taking Yes LORazepam (ATIVAN) 1 mg tablet Take 1 mg by mouth q 12 HR. Taking Yes phenytoin ER (DILANTIN) 100 mg ER capsule Take 300 mg by mouth once daily. Taking Yes testosterone cypionate (DEPO-TESTOSTERONE) 200 mg/mL injection INJECT 100 MG (0.5 ml) SQ Q2wks Taking Yes metoprolol succinate ER (TOPROL XL) 100 mg Take by mouth. Patient not taking: Reported on 11/25/2020 Not Taking Needle, Disp, 18 G (BD DISPOSABLE NEEDLES) 18 gauge x 1 ndle For use to withdraw testosterone Q2wks BD LUER-MARYLOU SYRINGE 1 mL syringe for use with testosterone injection SQ Q2wks Needle, Disp, 23 G 23 gauge x 3/4 ndle For use with testosterone administration SQ Q2wks venlafaxine ER (EFFEXOR XR) 37.5 mg 24 hr capsule Take 1 capsule by mouth once daily. Patient not taking: Reported on 11/25/2020 Not Taking propranolol (INDERAL) 10 mg tablet Take 1 tablet by mouth three times daily. Patient not taking: Reported on 09/03/2020 Not Taking No medication comments found. ALLERGIES Allergen Reactions - Codeine Hives, Itching Objective PHYSICAL EXAM (more content not included)... [facility] ----- AUREABHAVNA Kp ([id number]) 2 F Date Time Provider Department 10/30/20 TAMIKO MORIN During your visit today, we recorded the following information about you: Rola Chappell 10/30/2020 12:21 PM Signed Patient is calling today in regards to his upcoming surgery with . patient was just recently diagnosed with Epilepsy and they are currently trying to get his med's straightened out so that they are able to get this under control.Patient sees a neurologist outside of the Clinic for this. Patient also sees a eligibility specialist and has been wearing a heart monitor for the last month and gets it off this coming . Most recent seizure was this past Tuesday. Patient wants to know if they need a consent form from Neurology in order to proceed with this surgery. Please Advise Rola Chappell PSS Yareli Aguila APRN.[employer] REGISTER NURSE 10/30/2020 12:48 PM Addendum 11/04 - 12:47 - Pt spoke with neurologist and they told him that they do not provide clearance for surgery. Not sure what you'd like done now. Spoke with patient regarding neurologist clearance for surgery with Dr. Morin. Due to him having to change his seizure medications we would like a clearance form from neurologist. HE is seeing the neurologist tomorrow and will obtain a letter. Patient is schedule to see in office pacc on 11/25/2020 for pre op. Patient to follow up when letter is obtained. Allergies As of Date: 10/30/2020 Noted Allergy Reaction CODEINE 07/17/2017 4 - Hives 9 - Itching Date Reviewed: 09/03/2020 Reviewed by: Lizeth Arriaga Ma - Fully Assessed Reason for Visit: Question [0727] Prescriptions as of 10/30/2020 Sig: METOPROLOL SUCCINATE ER 100 M* Take by mouth. NEEDLE (DISP) 18 GAUGE X 1 For use to withdraw testoster* BD LUER-MARYLOU SYRINGE 3 ML 23 X* 1 mL syringe for use with mamta* NEEDLE (DISP) 23 GAUGE X 3/4 For use with testosterone adm* VENLAFAXINE ER 37.5 MG CAPSUL* Take 1 capsule by mouth once * TESTOSTERONE CYPIONATE 200 MG* INJECT 100 MG (0.5 ml) SQ Q2w* PROPRANOLOL 10 MG TABLET Take 1 tablet by mouth three * Patient not taking: Reported on 09/03/2020 Problem List As Of Date 10/30/2020 Noted Resolved Social anxiety disorder [F40.10] 09/04/2018 Gender dysphoria in adolescent and adult [F64.0]09/04/2018 PTSD (post-traumatic stress disorder) [F43.10] 10/11/2018 Gender dysphoria [F64.9] 11/20/2019 Psychogenic nonepileptic seizure [F44.5] Anxiety disorder [F41.9] 07/15/2017 Panic attacks [F41.0] Acute post-traumatic headache, not intractable *12/05/2019 12/11/2019 Abnormal weight loss [R63.4] 12/05/2019 Low TSH level [R79.89] 12/06/2019 Mild protein-calorie malnutrition (HCC) [E44.1] 12/07/2019 Frequent headaches [R51.9] 07/20/2017 Sleep difficulties [G47.9] 08/31/2018 Encounter Status:Closed by YARELI AGUILA on 10/30/20 Normal [facility] CONSULTATIONon 12-05-[address] [id number] CONSULTATION PATIENT NAME: BHAVNA KOVACS : 2000 MED REC NO: [id number] ROOM: [facility] ACCOUNT NO: [id number] ADMIT DATE: 07/17/2017 PROVIDER: Nahun Martini CONSULT DATE: 07/17/2017 CHIEF COMPLAINT: Seizures versus pseudoseizures. HISTORY OF PRESENT ILLNESS: Thank you for this neurology consult. 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 She was at her uncle's house, started to have generalized shaking. There was no bladder or bowel incontinence. This is a patient who recently relocated from [place]. The patient has had normal EEGs in the past, was declared as having non-epileptic seizures. The patient is reported to have a neurologist who had counseled her on Lexapro and Xanax. The patient reported to the RN that she identifies as male. The patient was taken to [place] ED, where she tested positive for THC. She did receive Ativan. She was transferred for further evaluation. She had an EEG done here, which I reviewed. She had 2 non-epileptic events. There was movement artifact, but no intraictal was on the EEG. PAST MEDICAL HISTORY: Otherwise, unremarkable. PAST SURGICAL HISTORY: None. HOME MEDICATIONS: Per HPI, including Lexapro. ALLERGIES: CODEINE. SOCIAL HISTORY: She has recently relocated. Lives with the father grandmother. She tested positive for THC at [facility]. REVIEW OF SYSTEMS: No weight gain or weight loss. No vision disturbances. No rhinitis. No rashes or bruises. No joint pain or swelling. No agitation or delirium. No urinary retention. Neurological history, per HPI. PHYSICAL EXAMINATION: VITAL SIGNS: Per EMR. GENERAL: On exam, she was awake, alert. No aphasia. No apraxia. HEENT: Normocephalic. LUNGS: Clear. ABDOMEN: Benign. EXTREMITIES: No clubbing, cyanosis, or edema. No joint pain or swelling. NEUROLOGIC: Cranial nerves II through XII intact. No facial asymmetry, dysarthria, or drooling. Tone and strength were normal in the upper and lower extremities. Reflexes were 2+ in the upper and lower extremities. She was not ambulated. CLINICAL IMPRESSION: One of non-epileptic seizures. RECOMMENDATION: For current therapy. She needs to follow up with her counselor and her outside neurologist. I did not add any antiepileptic medications. NAHUN MARTINI MERLYN/Suha_SSNCK_I Doc#: [id number] CC: Normal [facility] Vital Signs Date Time Vital Sign Value Performing Clinician Corey gonzalez 07-07-2023 11:19-0500 Body height 154.9 cm Enriqueta OSMAN Work Phone: [employer] 07-07-2023 11:19-0500 Diastolic blood pressure 59 mm[Hg] Enriqueta OSMAN Work Phone: [facility] 07-07-2023 11:19-0500 Heart rate 65 /min Enriqueta OSMAN Work Phone: [facility] 07-07-2023 11:19-0500 Systolic blood pressure 100 mm[Hg] Enriqueta Tse PA Work Phone: [facility] 05-12-2023 17:00-0500 Diastolic blood pressure 56 mm[Hg] DO Eric House Work Phone: [facility] 05-12-2023 17:00-0500 Heart rate 68 /min DO Eric House Work Phone: [facility] 05-12-2023 17:00-0500 Respiratory rate 16 /min DO Eric House Work Phone: [facility] 05-12-2023 17:00-0500 SaO2% (BldA) [Mass fraction] 98 % DO Eric House Work Phone: [facility] 05-12-2023 17:00-0500 Systolic blood pressure 107 mm[Hg] DO Eric House Work Phone: [facility] 05-12-2023 13:28-0500 Body height 154.94 cm DO Eric House Work Phone: [facility] 05-12-2023 13:28-0500 Body weight 48.1 kg DO Eric House Work Phone: [facility] 05-12-2023 13:27-0500 Body temperature 97.6 [degF] DO Eric House Work Phone: [facility] 04-12-2023 14:17-0400 Diastolic blood pressure 80 mm[Hg] DO Eric House Work Phone: [facility] 04-12-2023 14:17-0400 Heart rate 77 /min DO Eric House Work Phone: [facility] 04-12-2023 14:17-0400 Respiratory rate 16 /min DO Eric House Work Phone: [facility] 04-12-2023 14:17-0400 SaO2% (BldA) [Mass fraction] 99 % DO Eric House Work Phone: [facility] 04-12-2023 14:17-0400 Systolic blood pressure 121 mm[Hg] DO Eric House Work Phone: [facility] 04-12-2023 12:17-0400 Body height 154.94 cm DO Eric House Work Phone: [facility] 04-12-2023 12:17-0400 Body temperature 97.8 [degF] DO Eric House Work Phone: [facility] 04-12-2023 12:17-0400 Body weight 49 kg DO Eric House Work Phone: [facility] 03-23-2023 15:14-0400 Body temperature 98.3 [degF] DO Eric House Work Phone: [facility] 03-23-2023 15:14-0400 Diastolic blood pressure 68 mm[Hg] DO Eric House Work Phone: [facility] 03-23-2023 15:14-0400 Heart rate 66 /min DO Eric House Work Phone: [facility] 03-23-2023 15:14-0400 Respiratory rate 17 /min DO Eric House Work Phone: [facility] 03-23-2023 15:14-0400 SaO2% (BldA) [Mass fraction] 100 % DO Eric House Work Phone: [facility] 03-23-2023 15:14-0400 Systolic blood pressure 115 mm[Hg] DO Eric House Work Phone: [facility] 03-23-2023 12:38-0400 Body height 154.94 cm DO Eric House Work Phone: [facility] 03-23-2023 12:38-0400 Body weight 48.7 kg DO Eric House Work Phone: [facility] 03-11-2023 15:14-0400 Diastolic blood pressure 55 mm[Hg] DO Eric House Work Phone: [facility] 03-11-2023 15:14-0400 Heart rate 80 /min DO Eric House Work Phone: [facility] 03-11-2023 15:14-0400 Respiratory rate 18 /min DO Eric French Work Phone: [facility] 03-11-2023 15:14-0400 SaO2% (BldA) [Mass fraction] 100 % DO Eric French Work Phone: [facility] 03-11-2023 15:14-0400 Systolic blood pressure 95 mm[Hg] DO Eric House Work Phone: [facility] 03-11-2023 12:02-0400 Body height 162.56 cm DO Eric House Work Phone: [facility] 03-11-2023 12:02-0400 Body temperature 98.8 [degF] DO Eric French Work Phone: [facility] 03-11-2023 12:02-0400 Body weight 42.18 kg DO Eric French Work Phone: [facility] 02-06-2023 18:33-0400 Diastolic blood pressure 69 mm[Hg] Davidson KIM [employer] 02-06-2023 18:33-0400 Heart rate 88 /min Davidson KIM [employer] 02-06-2023 18:33-0400 Respiratory rate 26 /min Davidson KIM [employer] 02-06-2023 18:33-0400 SaO2% (BldA) [Mass fraction] 99 % Davidson KIM [employer] 02-06-2023 18:33-0400 Systolic blood pressure 111 mm[Hg] Davidson Ray MD [facility] 02-06-2023 17:04-0400 Body height 154.9 cm Davidson Ortez MD [facility] 02-06-2023 17:04-0400 Body mass index (BMI) [Ratio] 18.33 kg/m2 Davidson Ortez MD [facility] 02-06-2023 17:04-0400 Body temperature 98.8 [degF] Davidson Ortez MD [facility] 02-06-2023 17:04-0400 Body weight 44 kg Davidson Ortez MD [facility] 09-13-2022 12:30-0400 Body temperature 97 [degF] DO [employer] Work Phone: [facility] 09-13-2022 12:00-0400 Diastolic blood pressure 76 mm[Hg] DO Eric [employer] Work Phone: [facility] 09-13-2022 12:00-0400 Heart rate 68 /min DO [employer] Work Phone: [facility] 09-13-2022 12:00-0400 Respiratory rate 20 /min DO [employer] Work Phone: [facility] 09-13-2022 12:00-0400 SaO2% (BldA) [Mass fraction] 100 % DO Reic House Work Phone: [facility] 09-13-2022 12:00-0400 Systolic blood pressure 114 mm[Hg] DO Eric House Work Phone: [facility] 09-13-2022 10:41-0400 Body height 154.94 cm DO Eric House Work Phone: [facility] 09-13-2022 10:41-0400 Body weight 46.9 kg DO Eric House Work Phone: [facility] 08-30-2022 12:23-0500 Diastolic blood pressure 72 mm[Hg] DO Eric House Work Phone: [facility] 08-30-2022 12:23-0500 Heart rate 82 /min DO Eric House Work Phone: [facility] 08-30-2022 12:23-0500 Respiratory rate 16 /min DO Eric House Work Phone: [facility] 08-30-2022 12:23-0500 SaO2% (BldA) [Mass fraction] 100 % DO Eric House Work Phone: [facility] 08-30-2022 12:23-0500 Systolic blood pressure 114 mm[Hg] DO Eric House Work Phone: [facility] 08-30-2022 10:51-0500 Body height 154.94 cm DO Eric House Work Phone: [facility] 08-30-2022 10:51-0500 Body weight 50.1 kg DO Eric House Work Phone: [facility] 08-30-2022 10:50-0500 Body temperature 98.5 [degF] DO Eric House Work Phone: [facility] 08-18-2022 13:04-0500 Diastolic blood pressure 62 mm[Hg] DO Eric House Work Phone: [facility] 08-18-2022 13:04-0500 Heart rate 68 /min DO Eric House Work Phone: [facility] 08-18-2022 13:04-0500 Respiratory rate 18 /min DO Eric House Work Phone: [facility] 08-18-2022 13:04-0500 SaO2% (BldA) [Mass fraction] 100 % DO Eric House Work Phone: [facility] 08-18-2022 13:04-0500 Systolic blood pressure 95 mm[Hg] DO Eric House Work Phone: [facility] 08-18-2022 11:09-0500 Body height 154.94 cm DO Eric House Work Phone: [facility] 08-18-2022 11:09-0500 Body temperature 97.8 [degF] DO Eric House Work Phone: [facility] 08-18-2022 11:09-0500 Body weight 46.6 kg DO Eric House Work Phone: [facility] 07-27-2022 13:11-0500 Body temperature 96.9 [degF] DO Phyllis Tupa Work Phone: [facility] 07-27-2022 12:58-0500 Diastolic blood pressure 67 mm[Hg] DO Phyllis Tupa Work Phone: [facility] 07-27-2022 12:58-0500 Heart rate 52 /min DO Phyllis Tupa Work Phone: [facility] 07-27-2022 12:58-0500 Respiratory rate 18 /min DO Phyllis Tupa Work Phone: [facility] 07-27-2022 12:58-0500 SaO2% (BldA) [Mass fraction] 100 % DO Phyllis Tupa Work Phone: [facility] 07-27-2022 12:58-0500 Systolic blood pressure 111 mm[Hg] DO Phyllis Tupa Work Phone: [facility] 07-27-2022 12:04-0500 Body height 154.94 cm DO Phyllis Tupa Work Phone: [facility] 07-27-2022 12:04-0500 Body weight 47.2 kg DO Phyllis Tupa Work Phone: [facility] 05-18-2022 12:29-0500 Body temperature 97.8 [degF] DO Tommy Jessi Work Phone: [facility] 05-18-2022 12:29-0500 Diastolic blood pressure 63 mm[Hg] DO Tommy Jessi Work Phone: [facility] 05-18-2022 12:29-0500 Heart rate 63 /min DO Tommy Jessi Work Phone: [facility] 05-18-2022 12:29-0500 Respiratory rate 18 /min DO Tommy Jessi Work Phone: [facility] 05-18-2022 12:29-0500 SaO2% (BldA) [Mass fraction] 100 % DO Tommy Jessi Work Phone: [facility] 05-18-2022 12:29-0500 Systolic blood pressure 103 mm[Hg] DO Tommy Jessi Work Phone: [facility] 05-18-2022 11:02-0500 Body height 175.26 cm DO Tommy Jessi Work Phone: [facility] 05-18-2022 11:02-0500 Body weight 48.08 kg DO Tommy Jessi Work Phone: [facility] 04-22-2022 13:59-0400 Diastolic blood pressure 74 mm[Hg] DO Tommy Jessi Work Phone: [facility] 04-22-2022 13:59-0400 Heart rate 59 /min DO Tommy Jessi Work Phone: [facility] 04-22-2022 13:59-0400 Respiratory rate 16 /min DO Tommy Jessi Work Phone: [facility] 04-22-2022 13:59-0400 SaO2% (BldA) [Mass fraction] 100 % DO Tommy Jessi Work Phone: [facility] 04-22-2022 13:59-0400 Systolic blood pressure 116 mm[Hg] DO Tommy Jessi Work Phone: [facility] 04-22-2022 10:58-0400 Body height 154.94 cm DO Tommy Jessi Work Phone: [facility] 04-22-2022 10:58-0400 Body temperature 97.1 [degF] DO Tommy Jessi Work Phone: [facility] 04-22-2022 10:58-0400 Body weight 49 kg DO Tommy Jessi Work Phone: [facility] 04-05-2022 13:19-0400 Diastolic blood pressure 74 mm[Hg] DO Tommy Jessi Work Phone: [facility] 04-05-2022 13:19-0400 Heart rate 74 /min DO Tommy Jessi Work Phone: [facility] 04-05-2022 13:19-0400 Respiratory rate 16 /min DO Tommy Jessi Work Phone: [facility] 04-05-2022 13:19-0400 SaO2% (BldA) [Mass fraction] 99 % DO Tommy Jessi Work Phone: [facility] 04-05-2022 13:19-0400 Systolic blood pressure 111 mm[Hg] DO Tommy Jessi Work Phone: [facility] 04-05-2022 10:33-0400 Body height 154.94 cm DO Tommy Jessi Work Phone: [facility] 04-05-2022 10:33-0400 Body temperature 97.1 [degF] DO Tommy Jessi Work Phone: [facility] 04-05-2022 10:33-0400 Body weight 51.9 kg DO Tommy Jessi Work Phone: [facility] 03-30-2022 12:51-0400 Diastolic blood pressure 71 mm[Hg] DO Tommy Jessi Work Phone: [facility] 03-30-2022 12:51-0400 Heart rate 81 /min DO Tommy Jessi Work Phone: [facility] 03-30-2022 12:51-0400 Respiratory rate 16 /min DO Tommy Jessi Work Phone: [facility] 03-30-2022 12:51-0400 SaO2% (BldA) [Mass fraction] 98 % DO Tommy Jessi Work Phone: [facility] 03-30-2022 12:51-0400 Systolic blood pressure 113 mm[Hg] DO Tommy Jessi Work Phone: [facility] 03-30-2022 12:07-0400 Body height 154.94 cm DO Tommy Jessi Work Phone: [facility] 03-30-2022 12:07-0400 Body weight 48.08 kg DO Tommy Jessi Work Phone: [facility] 03-30-2022 11:03-0400 Body temperature 97.7 [degF] DO Tommy Jessi Work Phone: [facility] 03-19-2022 12:02-0400 Diastolic blood pressure 66 mm[Hg] DO Tommy Jessi Work Phone: [facility] 03-19-2022 12:02-0400 Heart rate 61 /min DO Tommy Jessi Work Phone: [facility] 03-19-2022 12:02-0400 Respiratory rate 18 /min DO Tommy Jessi Work Phone: [facility] 03-19-2022 12:02-0400 SaO2% (BldA) [Mass fraction] 100 % DO Tommy Jessi Work Phone: [facility] 03-19-2022 12:02-0400 Systolic blood pressure 125 mm[Hg] DO Tommy Jessi Work Phone: [facility] 03-19-2022 11:03-0400 Body height 154.94 cm DO Tommy Jessi Work Phone: [facility] 03-19-2022 11:03-0400 Body temperature 97.3 [degF] DO Tommy Jessi Work Phone: [facility] 03-19-2022 11:03-0400 Body weight 53.5 kg DO Tommy Jessi Work Phone: [facility] 02-25-2022 12:00-0400 Diastolic blood pressure 63 mm[Hg] DO Tommy Jessi Work Phone: [facility] 02-25-2022 12:00-0400 Heart rate 71 /min DO Tommy Jessi Work Phone: [facility] 02-25-2022 12:00-0400 Respiratory rate 14 /min DO Tommy Jessi Work Phone: [facility] 02-25-2022 12:00-0400 SaO2% (BldA) [Mass fraction] 99 % DO Tommy Jessi Work Phone: [facility] 02-25-2022 12:00-0400 Systolic blood pressure 112 mm[Hg] DO Tommy Jessi Work Phone: [facility] 02-25-2022 11:07-0400 Body height 162.56 cm DO Tommy Jessi Work Phone: [facility] 02-25-2022 11:07-0400 Body temperature 98.4 [degF] DO Tommy Jessi Work Phone: [facility] 02-25-2022 11:07-0400 Body weight 50.2 kg DO Tommy Jessi Work Phone: [facility] 09-28-2021 13:35-0400 Diastolic blood pressure 73 mm[Hg] DO Eric House Work Phone: [facility] 09-28-2021 13:35-0400 Heart rate 71 /min DO Eric House Work Phone: [facility] 09-28-2021 13:35-0400 Respiratory rate 18 /min DO Eric House Work Phone: [facility] 09-28-2021 13:35-0400 SaO2% (BldA) [Mass fraction] 100 % DO Eric House Work Phone: [facility] 09-28-2021 13:35-0400 Systolic blood pressure 113 mm[Hg] DO Eric House Work Phone: [facility] 09-28-2021 11:40-0400 Body height 154.94 cm DO Eric House Work Phone: [facility] 09-28-2021 11:40-0400 Body mass index (BMI) [Ratio] 19.5 kg/m2 DO Eric House Work Phone: [facility] 09-28-2021 11:40-0400 Body temperature 98 [degF] DO Eric House Work Phone: [facility] 09-28-2021 11:40-0400 Body weight 47 kg DO Eric House Work Phone: [facility] 09-09-2021 13:05-0400 Diastolic blood pressure 65 mm[Hg] DO Eric House Work Phone: [facility] 09-09-2021 13:05-0400 Heart rate 81 /min DO Eric House Work Phone: [facility] 09-09-2021 13:05-0400 Respiratory rate 20 /min DO Eric House Work Phone: [facility] 09-09-2021 13:05-0400 SaO2% (BldA) [Mass fraction] 100 % DO Eric House Work Phone: [facility] 09-09-2021 13:05-0400 Systolic blood pressure 107 mm[Hg] DO Eric House Work Phone: [facility] 09-09-2021 11:12-0400 Body height 154.94 cm DO Eric House Work Phone: [facility] 09-09-2021 11:12-0400 Body mass index (BMI) [Ratio] 19.5 kg/m2 DO Eric House Work Phone: [facility] 09-09-2021 11:12-0400 Body weight 47 kg DO Eric House Work Phone: [facility] 09-09-2021 11:05-0400 Body temperature 97.8 [degF] DO Eric House Work Phone: [facility] 08-12-2021 14:30-0500 Diastolic blood pressure 60 mm[Hg] DO Eric House Work Phone: [facility] 08-12-2021 14:30-0500 Heart rate 68 /min DO Eric House Work Phone: [facility] 08-12-2021 14:30-0500 Respiratory rate 21 /min DO Eric House Work Phone: [facility] 08-12-2021 14:30-0500 SaO2% (BldA) [Mass fraction] 99 % DO Eric House Work Phone: [facility] 08-12-2021 14:30-0500 Systolic blood pressure 102 mm[Hg] DO Eric House Work Phone: [facility] 08-12-2021 10:45-0500 Body height 154.94 cm DO Eric House Work Phone: [facility] 08-12-2021 10:45-0500 Body mass index (BMI) [Ratio] 43.7 kg/m2 DO Eric House Work Phone: [facility] 08-12-2021 10:45-0500 Body weight 105.1 kg DO Eric House Work Phone: [facility] 08-12-2021 10:35-0500 Body temperature 97.5 [degF] DO Eric House Work Phone: [facility] 08-07-2021 12:50-0500 Diastolic blood pressure 74 mm[Hg] DO Eric House Work Phone: [facility] 08-07-2021 12:50-0500 Heart rate 91 /min DO Eric House Work Phone: [facility] 08-07-2021 12:50-0500 Respiratory rate 16 /min DO Eric House Work Phone: [facility] 08-07-2021 12:50-0500 SaO2% (BldA) [Mass fraction] 100 % DO Eric House Work Phone: [facility] 08-07-2021 12:50-0500 Systolic blood pressure 107 mm[Hg] DO Eric House Work Phone: [facility] 07-10-2021 12:55-0500 Diastolic blood pressure 72 mm[Hg] DO Eric House Work Phone: [facility] 07-10-2021 12:55-0500 Heart rate 58 /min DO Eric House Work Phone: [facility] 07-10-2021 12:55-0500 Respiratory rate 18 /min DO Eric House Work Phone: [facility] 07-10-2021 12:55-0500 SaO2% (BldA) [Mass fraction] 100 % DO Eric House Work Phone: [facility] 07-10-2021 12:55-0500 Systolic blood pressure 110 mm[Hg] DO Eric House Work Phone: [facility] 07-10-2021 10:57-0500 Body height 154.94 cm DO Eric House Work Phone: [facility] 07-10-2021 10:57-0500 Body mass index (BMI) [Ratio] 20.5 kg/m2 DO Eric House Work Phone: [facility] 07-10-2021 10:57-0500 Body temperature 97.5 [degF] DO Eric House Work Phone: [facility] 07-10-2021 10:18-7135 Body weight 49.4 kg DO Eric French Work Phone: [facility] Encounters Encounter Date Encounter Type Care Provider Facility Start: 07-22-2023 End: 07-23-2023 ambulatory ENRIQUETA TSE [facility] Start: 07-07-2023 End: 07-08-2023 ambulatory ERIC FRENCH [facility] Start: 07-07-2023 End: 07-07-2023 Office outpatient visit 25 minutes Enriqueta Tse PA Work Phone: [facility] Comment on above: Right kidney stone ( Primary Dx) Start: 06-17-2023 End: 06-17-2023 ambulatory LUIS FERNANDO [facility] Start: 05-12-2023 End: 05-12-2023 Emergency department patient visit NON STAFF Facility:[facility] Start: 05-12-2023 End: 05-12-2023 Emergency department patient visit DO Eric French Work Phone: [facility] Work Phone: Start: 04-12-2023 End: 04-12-2023 Emergency department patient visit NON STAFF Facility:[facility] Start: 04-12-2023 End: 04-12-2023 Emergency department patient visit DO Eric French Work Phone: [facility] Work Phone: Start: 03-25-2023 End: 03-25-2023 ambulatory GLORIA [facility] Start: 03-23-2023 End: 03-23-2023 Emergency department patient visit Eric French Facility:[facility] Start: 03-23-2023 End: 03-23-2023 Emergency department patient visit DO Eric French Work Phone: [facility] Work Phone: Start: 03-11-2023 End: 03-11-2023 Emergency department patient visit Eric Minturn Facility:[facility] Start: 03-11-2023 End: 03-11-2023 Emergency department patient visit DO Eric House Work Phone: [facility] Work Phone: Start: 02-06-2023 End: 02-06-2023 Emergency department patient visit ERIC FRENCH [facility] Start: 02-06-2023 End: 02-06-2023 Emergency department patient visit Davidson Ortez MD [facility] ED Comment on above: Seizure (HCC) Start: 02-01-2023 End: 02-02-2023 ambulatory [facility] Start: 11-11-2022 End: 11-11-2022 Emergency department patient visit Eric French Facility:[facility] Start: 10-20-2022 End: 10-20-2022 Emergency department patient visit Eric French Facility:[facility] Start: 09-23-2022 End: 09-24-2022 ambulatory ERIC GILLIAN Facility: Start: 09-23-2022 End: 09-23-2022 Emergency department patient visit Eric French Facility:[facility] Start: 09-13-2022 End: 09-13-2022 Emergency department patient visit Federica Wolfe Facility:[facility] Start: 09-13-2022 End: 09-13-2022 Emergency department patient visit DO Eric House Work Phone: [facility] Work Phone: Start: 08-30-2022 End: 08-30-2022 Emergency department patient visit Shanelle Bowen Facility:[facility] Start: 08-30-2022 End: 08-30-2022 Emergency department patient visit DO Eric House Work Phone: [facility] Work Phone: Start: 08-18-2022 End: 08-18-2022 Emergency department patient visit Roberto Segovia Facility:[facility] Start: 08-18-2022 End: 08-18-2022 Emergency department patient visit DO Eric House Work Phone: [facility] Work Phone: Start: 07-27-2022 End: 07-27-2022 Emergency department patient visit Attila Justin Nelson Facility:[facility] Start: 07-27-2022 End: 07-27-2022 Emergency department patient visit DO Phyllis Roman Work Phone: [facility] Work Phone: Start: 06-12-2022 End: 06-13-[address] ERIC FRENCH Facility:[facility] Start: 05-24-2022 End: 05-24-[address] ERIC FRENCH Facility:[facility] Start: 05-18-2022 End: 05-18-2022 Emergency department patient visit DO Tommy Jessi Work Phone: [facility] Start: 05-15-2022 End: 05-15-[address] ERIC FRENCH Facility:[facility] Start: 04-22-2022 End: 04-22-2022 Emergency department patient visit DO Tommy Jessi Work Phone: [facility] Start: 04-05-2022 End: 04-05-2022 Emergency department patient visit DO Tommy Jessi Work Phone: [facility] Start: 03-30-2022 End: 03-30-2022 Emergency department patient visit DO Tommy Jessi Work Phone: [facility] Start: 03-19-2022 End: 03-19-2022 Emergency department patient visit DO Tommy Jessi Work Phone: [facility] Start: 02-25-2022 End: 02-25-2022 Emergency department patient visit DO Tommy Jessi Work Phone: [facility] Start: 01-03-2022 End: 01-03-[address] ERIC FRENCH Facility:[facility] Start: 11-29-2021 End: 11-29-[address] ERIC FRENCH Facility:[facility] Start: 10-16-2021 End: 10-16-[address] ERIC FRENCH Facility: Start: 09-28-2021 End: 09-28-2021 Emergency department patient visit DO Eric French Work Phone: [facility] Start: 09-09-2021 End: 09-09-2021 Emergency department patient visit DO Eric French Work Phone: [facility] Start: 08-20-2021 ambulatory [facility] Provider Leila Peña rinology Comment on above: Invitation for resea [facility] study with Dr. Wheat Start: 08-20-2021 E-mail encounter fro m caregiver [facility] Provider [facility] Start: 08-18-2021 ambulatory DION WHITE Facility:[facility] Start: 08-12-2021 End: 08-12-2021 Emergency department patient visit DO Eric French Work Phone: [facility] Start: 08-07-2021 End: 08-07-2021 Emergency department patient visit DO Eric French Work Phone: [facility] Start: 07-10-2021 End: 07-10-2021 Emergency department patient visit DO Eric French Work Phone: [facility] Start: 03-23-2021 End: 03-23-2021 Emergency department patient visit ERIC [facility] Start: 07-20-2017 End: 07-20-2017 Emergency department patient visit ALEXA SAHA Facility:[facility] Procedures Date Procedure Procedure Detail Performing Clinician Start: 05-12-2023 CT of abdomen and pelvis without contrast DO Eric Minturn Work Phone: Start: 02-06-2023 Ct head/brain w/o contrast material Davidson Ortez MD Start: 02-06-2023 End: 02-06-2023 Comprehensive metabolic panel Davidson Soto Start: 08-30-2022 Urine culture DO Eric Minturn Work Phone: Start: 09-28-2021 Plain chest X-ray DO Eric Minturn Work Phone: Start: 09-09-2021 Urine culture DO Eric House Work Phone: Start: 08-12-2021 Urine culture DO Eric House Work Phone: Start: 08-07-2021 Urine culture DO Eric House Work Phone: Start: 07-10-2021 Urine culture DO Eric House Work Phone: Start: 07-10-2021 CT of abdomen and pelvis without contrast DO Eric House Work Phone: Start: 12-05-2017 Electroencephalogram Urine culture DO Tommy Jessi Work Phone: Urine culture DO Tommy Jessi Work Phone: Plan of Treatment Date Care Activity Detail Author Start: 07-07-2024 Tobacco Screening Tobacco Screening [facility] Start: 01-21-2024 Adult BMI Screening Adult BMI Screen ing [facility] Start: 07-07-2023 End: 07-06-2024 US Retroperitoneum Ultrasound retroperitoneal complete Imaging Routine Right kidney stone Expected: 07/07/2023, Expires: 07/06/2024 [facility] Comment on above: Expected: 07/07/2023 , Expires: 07/06/2024 Start: 07-07-2023 End: 07-06-2024 [facility] Work Phone: Comment on above: Expected: 07/07/2023 , Expires: 07/06/2024 Start: 03-23-2023 Lamotrigine measurement [facility] Start: 03-23-2023 Measurement of substance [facility] Start: 02-25-2023 Influenza vaccination Influenza Vacc ine [facility] Start: 01-25-2023 Influenza vaccination Flu vaccine (# 1) [facility] Start: 09-13-2022 Lamotrigine measurement [facility] Start: 09-13-2022 Measurement of substance [facility] Start: 08-18-2022 Measurement of substance [facility] Start: 2022 Screening for malign ant neoplasm of cervix Pap smear [facility] Start: 02-25-2022 Influenza vaccination INFLUENZA (#1) [facility] Start: 06-27-2021 DEPRESSION ASSESSMENT DEPRESSION ASS ESSMENT [facility] Start: 2020 DTaP,Tdap and Td Vac cines (1 - Tdap) DTaP,Tdap and Td Vaccines (1 - Tdap) [facility] Start: 2020 DTaP/Tdap/Td vaccine (1 - Tdap) DTaP/Tdap/Td vaccine (1 - Tdap) [facility] Start: 2020 Urine microalbumin profile DTAP,TDAP,TD (1 - Tdap) [facility] Start: 2019 CHLAMYDIA SCREENING () CHLAMYDIA SCREENING () [facility] Start: 2019 GC (GONORRHEA) SCREE DAVION () GC (GONORRHEA) SCREENING () [facility] Start: 2019 HEPATITIS C SCREENING HEPATITIS C SC REENING [facility] Start: 2019 Hepatitis C screening Hepatitis C sc reen [facility] Start: 2019 HIV SCREENING HIV SCREENING [facility] Start: 2017 Screening for Chlamy stevie trachomatis Chlamydia/GC screen [facility] Start: 2016 HIV screening HIV screen [facility] Start: 2015 PEDS TO ADULT TRANSI TION ANNUAL ASSESSMENT PEDS TO ADULT TRANSITION ANNUAL ASSESSMENT [facility] Start: 2013 Depression Screen Depression Screen [facility] Start: 2013 Depression Screening Depression Scre ening 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 (1 of 2 - Risk Bexsero 2-dose series) MENINGOCOCCAL B: Consider based on risk (1 of 2 - Risk Bexsero 2-dose series) [facility] Start: 2002 Varicella vaccine (1 of 2 - 2-dose childhood series) Varicella vaccine (1 of 2 - 2-dose childhood series) [facility] Start: 2001 COVID-19 VACCINE (#1) COVID-19 VACCI NE (#1) [facility] Start: 2001 HEPATITIS B (1 of 3 - 3-dose series) HEPATITIS B (1 of 3 - 3-dose series) [facility] Bacteria identified in Urine by Culture [facility] Patient Education [facility] Work Phone: Patient referral [facility] Work Phone: End: 07-07-2024 Urinalysis Urinalysis Lab Routine Right kidney stone PRN for 1 Occurrences starting 07/07/2023 until 07[facility]07/[facility] Comment on above: PRN for 1 Occurrence s starting 07/07/2023 until 07/07/2024 Immunizations Immunization Date Immunization Notes Care Provider Fa cility NEGATED: Highlighted row has not occurred!07-17-2017 influenza, injectable, quadrivalent, preservative free Davidson Ortez MD [facility] Payers Date Payer Category Payer Self-pay [id number] 2016 Medicaid [id number] 2003 Medicaid [id number] 2001 Unknown [id number] 2.16.8 40.1.614456.3.579.2.176 2001 Unknown [id number] 2.16. 840.1.139900.3.579.2.594 2001 Unknown [id number] 2.16.84 0.1.486960.3.579.2.593 2001 Unknown [id number] 2.16.84 0.1.572969.3.579.2.593 2001 Unknown [id number] 2.16.84 0.1.033651.3.579.2.593 2001 Unknown [id number] 2.16.84 0.1.514833.3.579.2.593 2001 Unknown [id number] 2.16.84 0.1.284073.3.579.2.593 2001 Unknown [id number] 2.16.84 0.1.109095.3.579.2.593 2001 Unknown [id number] 2.16.84 0.1.914088.3.579.2.593 2001 Unknown [id number] 2.16.8 40.1.814538.3.579.2.173 2001 Unknown [id number] 2.16.84 0.1.623928.3.579.2.1286 2001 Unknown [id number] 2.16.84 0.1.321066.3.579.2.1286 2001 Unknown [id number] 2.16.8 40.1.520983.3.579.2.1286 1977 Unknown [id number] 2.16.8 40.1.916886.3.579.2.647 1959 Unknown [id number] Unknown [id number] 2.16.8 40.1.805719.3.579.2.531 Unknown [id number] 2.16.8 40.1.425143.3.579.2.531 Unknown [id number] 2.16.8 40.1.291636.3.579.2.531 Unknown [id number] 2.16.8 40.1.064517.3.579.2.531 Unknown [id number] 2.16.8 40.1.266947.3.579.2.531 Unknown [id number] 2.16.8 40.1.015117.3.579.2.531 Unknown [id number] 2.16.8 40.1.733819.3.579.2.531 Unknown [id number] 2.16.8 40.1.945316.3.579.2.531 Unknown [id number] 2.16.8 40.1.933766.3.579.2.531 Unknown [id number] 2.16.8 40.1.699567.3.579.2.531 Unknown [id number] 2.16.8 40.1.127249.3.579.2.531 Social History Date Type Detail Facility Start: 09-28-2021 Tobacco smoking stat us WVIS Current some day smoker [facility] Start: 2000 Sex Assigned At Female F [facility] Start: 04-09-2020 End: 02-25-2022 Tobacco smoking status NHIS Never smoked tobacco (finding) [facility] Start: 03-29-2019 End: 04-09-2020 Tobacco use and exposure Smokeless tobacco non-user [facility] Start: 12-10-2020 End: 07-07-2023 Alcohol intake Ex-drinker (finding) [facility] Start: 03-23-2021 Alcohol intake Current non-dr loan representative of alcohol (finding) [facility] Start: 2001 Sex Assigned At Not on file [facility] Start: 08-07-2020 End: 07-07-2023 History of Social function [facility] Start: 08-07-2020 End: 07-07-2023 Tobacco use panel [facility] Housing Instability Unknown [facility] Start: 10-12-2020 Gender identity Identifies as male gender (finding) [facility] Medical Equipment Procedure Code Equipment Code Equipment Original Text Equipment Identifier Dates Start: 07-03-2020 Comment on above: For use to withdraw testosterone Q2wks For use with testost erone administration SQ Q2wks Clinical Notes 12-05-2019 to 07-07-2023 Assessment & Plan Note - DAWSON Segura - 07/07/2023 12:47 PM ESTAssessment & Plan Note - DAWSON Segura - 07/07/2023 12:47 PM DAWSON Manzanares - 07/07/2023 11:00 AM EST Note Date & Type Note Facility 07-07-2023 Evaluation + Plan note Associated Problem(s): Right kidney stone We discussed CT vs ultrasound. He would prefer to start with an ultrasound 1st. We also need a urine specimen. He will drop this off at the hospital when he goes in for the ultrasound. We will call him with the results. If no sign of obstruction, it is unlikely that the pain is coming from the kidney so he will need to follow-up with his PCP. We could also consider a referral to the spine care center. [facility] 07-07-2023 Miscellaneous Notes Associated Problem(s): Right kidney stone We discussed CT vs ultrasound. He would prefer to start with an ultrasound 1st. We also need a urine specimen. He will drop this off at the hospital when he goes in for the ultrasound. We will call him with the results. If no sign of obstruction, it is unlikely that the pain is coming from the kidney so he will need to follow-up with his PCP. We could also consider a referral to the spine care center. documented in this encounter [facility] 07-07-2023 History of Present illness Narrative Images from the original note were not included. [id number] [facility] [id number] Patient: Bhavna Kovacs Date of : 2000 Encounter Date: 07/07/2023 History of Present Illness: Chief Complaint: Back pain The patient is a 23 y.o. adult, an established patient, and is here for back pain. He is status post cystoscopy/right ureteroscopy/stent placement 11/24/2021. This was for treatment of a 1.8 cm right renal pelvic stone. The stent was removed 12/09/2021. He started to have back pain in April. I do not have the records, but he reports that he went to [facility] both for seizures and back pain. He said they did a CT which showed small stones in the kidneys. He continues to have bilateral lower back pain, L>R. It is worse after intercourse. He has also had occasional gross hematuria and nausea. He said it feels like his previous stones. On KUB today. It is difficult to distinguish the right renal shadow. There may be a few small stones in the right kidney. No obvious stones on the left. No obvious ureteral stones. There appear to be a few small stones Urinalysis today: No results for input(s): EXTPOCURCO , EXTPOCURCH , EXTPOCAPP , EXTPOCURBS , EXTPOCURBIL , EXTPOCUKET , EXTPOCUSPG , EXTPOCUHGB , EXTPOCUPRO , EXTPOCUURO , EXTPOCULEU , EXTPOCUNIT , EXTPOCUWBC , EXTPOCUBLD , EXTPOCURBC , EXTPOCUCRY , EXTPOCUBAC , EXTPOCUTREP , EXTPOCUPH , EXTPOCULEE in the last 72 hours. Last BUN and creatinine: Lab Results Component Value Date BUN 8 01/20/2023 Lab Results Component Value Date CREATININE 0.84 01/20/2023 Past Medical, Family, and Social History Update: The following portions of the patient's history were reviewed and updated as appropriate: allergies, current medications, past family history, past medical history, past social history, past surgical history and problem list. Past Medical History: Diagnosis Date Anesthesia complication seizures Anxiety Arrhythmia Chronic kidney disease Diabetes mellitus type 2, controlled ([facility]) states diagnosed on Tuesday DUFFY (dyspnea on exertion) Epilepsy ([facility]) Gender dysphoria Head injury Panic disorder Seizures ([facility]) last seizure was November 13 had 5-6+ seizures SVT (supraventricular tachycardia) ([facility]) Transgender Urinary tract infection Visual impairment Past Surgical History: Procedure Laterality Date BREAST SURGERY Bilateral 12/04/2020 mastectomy CYSTOSCOPY INSERTION STENT URETER Right 11/24/2021 Performed by Debbie Mckeon MD at [facility] CYSTOSCOPY REMOVAL STENT Right 12/09/2021 Performed by Debbie Mckeon MD at [facility] HOLMIUM URETEROSCOPY RENAL STONES < OR=1CM Right 11/24/2021 Performed by Debbie Mckeon MD at [facility] Family History Problem Relation Age of Onset No Known Problems Mother No Known Problems Father Anesthesia problems Neg Hx Current Outpatient Medications Medication Sig Dispense Refill BRIVIACT 50 mg tablet TAKE 1 TABLET BY MOUTH IN THE MORNING and ONE TABLET BY MOUTH BEFORE bedtime lamoTRIgine (LaMICtal) 100 mg tablet Take 1 tablet (100 mg total) by mouth in the morning and 1 tablet (100 mg total) before bedtime. midazolam (NAYZILAM) 5 mg/spray (0.1 mL) spray,non-aerosol Administer 5 mg into each nostril. midodrine (PROAMATINE) 5 mg tablet TAKE 1 TABLET BY MOUTH THREE TIMES DAILY (IN THE MORNING, at noon, and AT BEDTIME) ondansetron ODT (ZOFRAN ODT) 4 mg disintegrating tablet Dissolve 1 tablet (4 mg total) on tongue every 8 (eight) hours as needed for nausea for up to 10 doses. 10 tablet 0 phenytoin (DILANTIN) 100 mg ER capsule SUMAtriptan (IMITREX) 100 mg tablet Take 1 tablet (100 mg total) by mouth. docusate sodium (COLACE) 100 mg capsule Take 1 capsule (100 mg total) by mouth in the morning and 1 capsule (100 mg total) before bedtime. (Patient not taking: Reported on 01/22/2022) 14 capsule 0 ketorolac (TORADOL) 10 mg tablet Take 1 tablet (10 mg total) by mouth every 6 (six) hours as needed for pain. (Patient not taking: Reported on 01/22/2022) 20 tablet 0 levETIRAcetam (KEPPRA) 750 mg tablet Take 1 tablet (750 mg total) by mouth 2 (two) times a day. (Patient not taking: Reported on 07/07/2023) 28 tablet 0 metFORMIN (GLUCOPHAGE) 500 mg tablet Take 1 tablet by mouth 2 (two) times a day. (Patient not taking: Reported on 07/07/2023) metoclopramide (REGLAN) 10 mg tablet Take 10 mg by mouth every 8 (eight) hours as needed. (Patient not taking: Reported on 11/24/2021) promethazine (PHENERGAN) 25 mg suppository INSERT 1 (ONE) SUPPOSITORY RECTALLY EVERY 6 HOURS NEEDED (Patient not taking: Reported on 11/24/2021) No current facility-administered medications for this visit. (All medications reviewed and updated by provider since last office visit or hospitalization) Allergies: Codeine Tobacco History: Social History Tobacco Use Smoking Status Never Smokeless Tobacco Never (If patient a smoker, smoking cessation counseling offered) Social History: Social History Substance and Sexual Activity Alcohol Use Not Currently Review of Systems: General: Negative for chills and fever. Cardiovascular: Negative for chest pain and shortness of breath. Gastrointestinal: Negative for constipation, diarrhea, nausea, and vomitting. -per HPI Physical Exam: BP 100/59 Pulse 65 Ht 154.9 cm (5' 1 ) BMI 19.46 kg/m Constitutional: He appears well-developed. No distress. Pulmonary/Chest: Effort normal. No respiratory distress. Neurological: He is alert and oriented for age. Gait normal. Nursing note and vitals reviewed. Assessment and Plan: Diagnoses and all orders for this visit: Right kidney stone - X-ray abdomen ap 1 view; Future - Ultrasound retroperitoneal complete; Future - Urinalysis; Standing Problem List Genitourinary Right kidney stone - Primary Overview 07/07/23: Bilateral back pain since Apr. No obvious ureteral stones on KUB. Will check renal US 11/24/21: Right ureteroscopy 10/15/21: Stones associated with right-sided flank pain as well as constitutional symptoms of malaise, poor appetite and p.o. intake, nausea. Stone is nonobstructing but may be causing pain due to infection or irritation. Admittedly his pain and constitutional symptoms may not be stone related however given the size would benefit from treatment, additional growth would necessitate percutaneous nephrolithotomy. Stone is 1200 HU not a great SW well candidate. Situation is significantly complicated by his refractory epilepsy. He did experience perioperative seizures when he had his bilateral mastectomy. Per patient not currently seeing on neurologist, unclear who is prescribing his medications. With regard to surgery will send a referral to Neurology to clear him for anesthesia and help control his seizures. He was given instructions to present to the ER if his symptoms should be not controlled outpatient, in particular inability to tolerate p.o. intake, fevers, chills, worsening flank pain. Current Assessment & Plan We discussed CT vs ultrasound. He would prefer to start with an ultrasound 1st. We also need a urine specimen. He will drop this off at the hospital when he goes in for the ultrasound. We will call him with the results. If no sign of obstruction, it is unlikely that the pain is coming from the kidney so he will need to follow-up with his PCP. We could also consider a referral to the spine care center. Relevant Orders X-ray abdomen ap 1 view Ultrasound retroperitoneal complete Urinalysis DAWSON SEGURA This note was created with the assistance of a speech recognition program. While intending to generate a timely document that accurately reflects the content of the visit, no guarantee can be provided that every grammatical or spelling mistake has been or will be identified or corrected. Thank you for your understanding. DAWSON Segura 07/07/23 1248 documented in this encounter [facility] 07-07-2023 Instructions DAWSON Segura - 07/07/2023 11:00 AM EST I do not see any obvious stones on x-ray. There are some limitations with the study though, so to rule out your kidneys as the source of the pain, let us have you get an ultrasound. Call central scheduling at [phone] to schedule the ultrasound. I will watch for the results and will call when final. When you are at the hospital for the ultrasound, please leave a urine specimen at the lab. If the urine looks fine and the ultrasound shows the kidneys are draining well, it is unlikely that the kidneys are the source for your pain. He should then follow-up with your family doctor to see if there are non urologic sources for your pain. We could also consider a referral to the spine care center to investigate musculoskeletal sources for your symptoms Enriqueta: [phone] (Ext [id number]) documented in this encounter [facility] Note Patient here for [facility] up event monitor and echo. He is c/o chest pain, SOB, palpitations, and lightheadedness. Review of Systems Cardiovascular: Positive for chest pain, dyspnea on exertion, palpitations and syncope. Respiratory: Positive for shortness of breath. Neurological: Positive for light-headedness and seizures. All other systems reviewed and are negative. [facility] 06-17-2023 Note [facility] Electrophysiology Consult Note Reason for visit: event monitor from 01/2023 , palpitations HPI: Bhavna Kovacs is a 23 y.o. year old with past medical history of palpitations, non-epileptic seizures, DM2. Here for follow up regarding palpitations Was recently seen 02/01/23 For concerns of shortness of breath and having multiple episodes of seizure-like activity which resulted in respiratory failure cardiac patient on this past year 11/2022. previously was complaining of shortness of breath with exertion and inability to walk up a flight of stairs without becoming short of breath. His seizures were being evaluated as there was concern as well for neurocardiogenic syncope versus arrhythmia versus significant hypotension He continues to have palpitations, event monitor did not show significant arrhythmia. He has had multiple syncopal episodes without explanation. He does have hx of syncope related to seizures and vasovagal but there multiple syncopal events in the past unrelated to either which raises concern for cardiac arrhythmia. 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 Harding 09/23/20 HPI: 20-year-old patient with a history of seizure disorder was recently seen by Ms. Bruce for complaints of palpitations. He states that he has felt them quite often and was significantly bothered by it on August 10 that he went to [facility]. EKG that performed shows evidence of sinus rhythm with PVCs in a bigeminy pattern. Subsequent EKG after an hour also showed sinus rhythm. Repeat EKG after 2 weeks showed sinus rhyth. He was placed on metoprolol which unfortunately is giving him significant fatigue and low blood pressure readings that caused him to pass out. He is currently on testosterone injection for gender transformation purpose. He also reports seizures on a daily basis and has been previously on Dilantin and is scheduled to see neurologist next week. Past medical history-seizures, anxiety, PVCs Past surgical history-no pertinent cardiac history Family medical history-paternal grandfather of an AL at 46 years of age, paternal uncle CAD, sister with SVT, grandmother A. fib Social-never smoker, admits occasional alcohol about once or twice a year, daily marijuana use ---- PMH: No past medical history on file. PSH: No past surgical history on file. SH: Social Determinants of Health Tobacco Use: Low Risk (02/01/2023) Patient History Smoking Tobacco Use: Never Smokeless Tobacco Use: Never Passive Exposure: Not on file Alcohol Use: Not on file Financial Resource Strain: Not on file Food Insecurity: Not on file Transportation Needs: Not on file Physical Activity: Not on file Stress: Not on file Social Connections: Not on file Intimate Partner Violence: Not on file Depression: Not on file Housing Stability: Not on file Allergies: Allergies Allergen Reactions Codeine Hives and Itching Weight: No weight available Visit Vitals Smoking Status Never Meds: Current Outpatient Medications on File Prior to Visit Medication Sig Dispense Refill lamoTRIgine (LaMICtal) 100 mg tablet Take 100 mg by mouth twice a day. levETIRAcetam (Keppra) 1,000 mg tablet Take 1,000 mg by mouth twice a day. midodrine (Proamatine) 5 mg tablet Take 1 tablet (5 mg) by mouth in the morning, at noon, and at bedtime. 270 tablet 3 No current facility-administered medications on file prior to visit. ROS: Cardio Basic Cardiovascular Symptoms: no lightheadedness, no leg edema, no syncope, no orthopnea, no PND, no claudication, Constitutional Constitutional: no fever, no night sweats, no significant weight gain, no significant weight loss, no exercise intolerance Eyes Eyes: no dry eyes, no irritation, no vision change ENMT Ears: no difficulty hearing, no ear pain Nose: no frequent nosebleeds, Mouth/Throat: no sore throat, no bleeding gums, no snoring, no dry mouth, no mouth ulcers, no oral abnormalities, no teeth problems Respiratory Respiratory: no cough, no wheezing, no coughing up blood, no sleep apnea Musculoskeletal Musculoskeletal: no muscle aches, no muscle weakness, joint pain+, no back pain, no swelling in the extremities Integumentary Skin no rash, no ulcer, no varicosities, no discoloration, no pruritus Neurologic Neurologic: no loss of consciousness, no weakness, no numbness, no seizures, no dizziness, no headaches Psychiatric Psych: no depression, feeling safe in relationship, no alcohol abuse, H (more content not included)... [facility] 02-06-2023 Hospital Discharge instructions Davidson Ortez MD - 02/06/2023 6:23 PM EDT A referral has been placed for you to establish care with the neurologist of your preference, Dr. Easton. Please call the office if you have not heard from them within 48 hours. I anticipate a decrease in seizure activity after the medication given in the ED. However, for seizures that failed to terminate at home or are otherwise out of pattern, you may use the prescribed nasal midazolam. Return to the ED for recurrent seizures, fever, changes in mental status or any other concerns. documented in this encounter [facility] 02-01-2023 Note Orthostatic vitals t judy were unrevealing, discussed with patient to maintain adequate hydration, add extra sodium to diet to help maintain higher blood pressure and will start midodrine 5 mg 3 times daily to see if symptoms improve Return to clinic after event monitor is complete and echo completed to review [facility] 02-01-2023 Note Patient reports dysp marcella on exertion and that just walking in from parking lot or across to her home can be too much where she has to stop and take deep breaths to catch her breath. Occasionally occurs with lightheadedness and dizziness with noted seizure activity at times and what sounds like syncopal episodes. Patient reports over this last year she has had multiple episodes of intubation and requiring ventilator status post seizure activity and respiratory failure. Therefore I ordered echocardiogram and 30-day event monitor to assess cardiac function, and for any concerning arrhythmias [facility] 02-01-2023 Note Patient reports seiz ure activity almost daily this occurs with loss of consciousness, shortness of breath, sometimes with palpitations. She does follow with neurology and is currently on Keppra We will provide 30-day event monitor to assess for any significant arrhythmias with seizure activity, and echocardiogram to assess cardiac function and valvular function and right-sided pressures in light of dyspnea on exertion [facility] 02-01-2023 Note Intermittent palpita tions with noted lightheadedness/dizzness, and DUFFY. Will order 30 day event monitor to assess for any concerning arrythmias that may co-orelate with seizure activity also, [facility] 02-01-2023 Note [facility] CARDIOLOGY PROGR ESS NOTE HPI: Bhavna Kovacs is a 22 y.o. male here for f/U for concerns for further cardiac testing in light of seizure disorder. HPI patient presents today for concerns of cardiac issues in light of increasing shortness of breath, multiple episodes of seizure activity of which she has respiratory failure and required intubation and ventilation this past year. Patient admits strong family history of early coronary disease/heart attacks in maternal grandmother and maternal grandfather. Patient also states that his mother was a polysubstance abuser during her with him. Denies ever being a cigarette smoker but states used to smoke marijuana daily since recently he has stopped that. Denied any alcohol use. Currently states shortness of breath occurs with just walking in from the parking lot, across to his home, and unable to walk up 1 flight of stairs without shortness of breath stopping him. Denies orthopnea, chest pain. Does admit intermittent palpitations and lightheadedness and dizziness with position changes. Patient is rather frail and thin appearing. Currently is difficult to determine if his seizure activities are truly related to seizures versus neurocardiogenic syncope versus cardiac arrhythmia and/or significant hypotension. Recently evaluated in ED for breakthrough seizure- currently managed by [facility] neurology. 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 Respiratory: Positive for shortness of breath. Cardiovascular: Negative for chest pain, palpitations and leg swelling. Neurological: Positive for dizziness and light-headedness. All other systems reviewed and are negative. Previous HPI per Dr Harding- 09/23/2020 cc: Palpitations HPI: 20-year-old patient with a history of seizure disorder was recently seen by Ms. Bruce for complaints of palpitations. He states that he has felt them quite often and was significantly bothered by it on August 10 that he went to [facility]. EKG that performed shows evidence of sinus rhythm with PVCs in a bigeminy pattern. Subsequent EKG after an hour also showed sinus rhythm. Repeat EKG after 2 weeks showed sinus rhyth. He was placed on metoprolol which unfortunately is giving him significant fatigue and low blood pressure readings that caused him to pass out. He is currently on testosterone injection for gender transformation purpose. He also reports seizures on a daily basis and has been previously on Dilantin and is scheduled to see neurologist next week. Past medical history-seizures, anxiety, PVCs Past surgical history-no pertinent cardiac history Family medical history-paternal grandfather of an AL at 46 years of age, paternal uncle CAD, sister with SVT, grandmother A. fib Social-never smoker, admits occasional alcohol about once or twice a year, daily marijuana use Allergies-none Home meds-Effexor and testosterone injections Visit Vitals BP 94/60 Pulse 64 Ht 1.549 m (5' 1 ) Wt 44 kg (97 lb) BMI 18.33 kg/m??? Smoking Status Never BSA 1.38 m??? Allergies Allergen Reactions Codeine Hives and Itching Medications: Current Outpatient Medications on File Prior to Visit Medication Sig Dispense Refill levETIRAcetam (Keppra) 1,000 mg tablet Take 1,000 mg by mouth twice a day. lamoTRIgine (LaMICtal) 100 mg tablet Take 100 mg by mouth twice a day. No current facility-administered medications on file prior to visit. Physical Exam: Constitutional: Appearance: Normal appearance. Without apparent distress, thin and frail appearing HENT: Head: Normocephalic and atraumatic. Nose: Nose normal. Mouth/Throat: Mouth: Mucous membranes are moist. Eyes: Extraocular Movements: Extraocular movements intact. Conjunctiva/sclera: Conjunctivae normal. Neck: Vascular: No JVD. Cardiovascular: Rate and Rhythm: Normal rate and regular rhythm. Pulses: Dorsalis pedis pulses are 3 on the right side and 3on the left side. Posterior tibial pulses are 3 on the right side and 3 on the left side. Heart sounds: Normal heart sounds, S1 normal and S2 normal. Pulmonary: Effort: Pulmonary effort is normal. Breath sounds: Normal breath sounds. Abdominal: General: Bowel sounds are normal. Palpations: Abdomen is soft. Musculoskeletal: General: Normal range of motion. Cervical back: Normal range of motion. Right lower leg: No edema. Left lower leg: No edema. Skin: General: Skin is warm and dry. Capillary Refill: Capillary refill takes less than 2 seconds. Neurological: General: No focal deficit present. Mental Status: alert and oriented to person, place, and time. Psychiatric: Mood and Affect: Mood normal. Behavior: Behavior normal. Thought Content: T (more content not included)... [facility] 12-10-2020 Note HNO ID: [id number] Author: Tamiko Morin MD Service: ? Author Type: Physician Type: Progress Notes Filed: 12/10/2020 6:00 PM Note Text: Plastic Surgery Note CC: Post op HPI: Yonatan is a 20 year old FTM s/p bilateral mastectomy for gender dysphoria on 12/04/20. Patient states he has been painful. He has been taking oxycodone which helps a little but mainly makes him sleep. His drains have been putting out <30 cc for the last 3 days. REVIEW OF SYSTEMS Denies chest pain/SOB Denies fevers/chills Objective: LMP 10/25/2020 (Approximate) PAST MEDICAL HISTORY Diagnosis Date - Anxiety - Depression - Family history of epilepsy - Gender dysphoria - Panic attacks - Seizures (HCC) pseudoseizures - Traumatic brain injury (HCC) PAST SURGICAL HISTORY Procedure Laterality Date - NONE Current Outpatient Medications Medication Sig Dispense Refill - ondansetron (ZOFRAN) 4 mg tablet Take 1 tablet by mouth every 8 hours as needed for nausea/vomiting for up to 7 days. 15 tablet 0 - oxyCODONE IR (ROXICODONE) 5 mg immediate release tablet Take 1 tablet by mouth every 6 hours as needed for pain for up to 7 days. 15 tablet 0 - acetaminophen (TYLENOL) 500 mg tablet Take 2 tablets by mouth every 6 hours for 5 days, and then take 2 tablets every 6 hours as needed for pain for up to 5 days. 50 tablet 0 - docusate sodium (COLACE) 100 mg capsule Take 1 capsule by mouth twice daily for 7 days. 14 capsule 0 - lamoTRIgine (LAMICTAL) 25 mg tablet Take 100 mg by mouth twice daily. - LORazepam (ATIVAN) 1 mg tablet Take 1 mg by mouth q 12 HR. - phenytoin ER (DILANTIN) 100 mg ER capsule Take 300 mg by mouth once daily. - metoprolol succinate ER (TOPROL XL) 100 mg Take by mouth. (Patient not taking: Reported on 11/25/2020 ) - Needle, Disp, 18 G (BD DISPOSABLE NEEDLES) 18 gauge x 1 ndle For use to withdraw testosterone Q2wks 10 Each 5 - BD LUER-MARYLOU SYRINGE 1 mL syringe for use with testosterone injection SQ Q2wks 10 Each 5 - Needle, Disp, 23 G 23 gauge x 3/4 ndle For use with testosterone administration SQ Q2wks 10 Each 5 - testosterone cypionate (DEPO-TESTOSTERONE) 200 mg/mL injection INJECT 100 MG (0.5 ml) SQ Q2wks 2 mL 5 - propranolol (INDERAL) 10 mg tablet Take 1 tablet by mouth three times daily. (Patient not taking: Reported on 09/03/2020 ) 90 tablet 2 No current facility-administered medications for this visit. ALLERGIES Allergen Reactions - Codeine Hives, Itching PE: AANDOx3, NAD No s/s of infection Bilateral breast incisions healing well Minimal bruising on bilateral breasts A/P: S/p bilateral mastectomy for gender dysphoria, looks excellent Bilateral breast drains removed Discussed activity restrictions Continue wearing binder for another 2 weeks Ok to swim in 2 weeks Follow up virtually in 1 month The patient is seen and examined by Dr. Morin and the following reflects his service. Scribed by Oliva Santana RN. I agree with the Chief Complaint, ROS, and Past Histories independently gathered by the clinical sales support specialist and the remaining scribed note accurately describes my personal service to the patient. Tamiko Morin MD [facility] 12-05-2020 Note HNO ID: [id number] Author: Gerri Gordillo Service: Pharmacy Author Type: ? Type: Plan of Care Filed: 12/05/2020 5:06 PM Note Text: PHARMACY BEDSIDE DELIVERY SERVICE Patient Name: Bhavna Kovacs The marked outpatient medications were Filled at: [facility] and delivered to the patient's bedside to PATIENT Medication List START taking these medications acetaminophen 500 mg tablet Commonly known as: TYLENOL Take 2 tablets by mouth every 6 hours for 5 days, and then take 2 tablets every 6 hours as needed for pain for up to 5 days. Start taking on: December 04, 2020 DELIVERED docusate sodium 100 mg capsule Commonly known as: COLACE Take 1 capsule by mouth twice daily for 7 days. DELIVERED ondansetron 4 mg tablet Commonly known as: ZOFRAN Take 1 tablet by mouth every 8 hours as needed for nausea/vomiting for up to 7 days. DELIVERED oxyCODONE IR 5 mg immediate release tablet Commonly known as: ROXICODONE Take 1 tablet by mouth every 6 hours as needed for pain for up to 7 days. DELIVERED CONTINUE taking these medications BD LUER-MARYLOU SYRINGE 3 mL 23 x 1 Generic drug: Syringe with Needle (Disp) 1 mL syringe for use with testosterone injection SQ Q2wks lamoTRIgine 25 mg tablet Commonly known as: LaMICtal LORazepam 1 mg tablet Commonly known as: ATIVAN metoprolol succinate ER 100 mg Commonly known as: TOPROL XL * Needle (Disp) 18 G 18 gauge x 1 Ndle Commonly known as: BD Disposable Rhodell For use to withdraw testosterone Q2wks * Needle (Disp) 23 G 23 gauge x 3/4 Ndle For use with testosterone administration SQ Q2wks phenytoin ER 100 mg ER capsule Commonly known as: DILANTIN propranolol 10 mg tablet Commonly known as: INDERAL Take 1 tablet by mouth three times daily. testosterone cypionate 200 mg/mL injection Commonly known as: DEPO-TESTOSTERONE INJECT 100 MG (0.5 ml) SQ Q2wks * This list has 2 medication(s) that are the same as other medications prescribed for you. Read the directions carefully, and ask your doctor or other care provider to review them with you. You might also be taking other medications not listed above. If you have questions about any of your other medications, talk to the person who prescribed them or your Primary Care Provider. STOP taking these medications venlafaxine ER 37.5 mg 24 hr capsule Commonly known as: EFFEXOR XR Gerri Gordillo PAGER: [phone] December 05, 2020 5:04 PM [facility] 12-05-2020 Note HNO ID: [id number] Author: Fortunato Langford MD Service: Neurology Adult Epilepsy Author Type: Fellow Type: Plan of Care Filed: 12/05/2020 11:54 AM Note Text: Plan of care epilepsy consult team Interval history: -Overnight, at 2120 episode of side to side head shaking < 2 minutes, eyes were closed without loss of consciousness. -Seen today, stable, he reports he is being weaned from Dilantin (Current dose 100 mg OD from 300 OD), He is currently on LTG 50 BID. -Patient had a previous admission on 11/2019 at [facility] and diagnosed with PNES (was not admitted on any AEDs). DATA: -12/05/2020 03:37:00 - 12/05/2020 10:47:00: No epileptiform discharges or EEG seizures were recorded. 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 Epilepsy consulted after the patient had a 1 minute episode of shaking his head left/right, 2mg Ativan given. He established with a local Neurologist and has been started on Lamictal and Dilantin. Records are unable to be accessed from his local Neurologist. ? Plan: -Suggest a follow up appointment with his Neurologist or Dr. Murphy as patient was seen on 11/23/[address] Murphy for further evaluation. Fortunato Langford MD Epilepsy fellow [facility] 12-05-2020 Note HNO ID: [id number] Author: CHEYENNE Sewell Service: Care Management Author Type: Bond Underwriter Type: Care Mgt Progress Note Filed: 12/05/2020 10:46 AM Note Text: CARE MANAGEMENT PROGRESS NOTE SERVICE DATE: 12/05/2020 SERVICE TIME: 10:46 AM LOS: 0 days Needs Prior to Discharge: None This patient has been screened for Care Management Transitional Planning Services. At this time, it does not appear this patient will require transition planning services. Should this change, and the patient require transition planning services during this admission, please call [phone]. CHEYENNE Sewell December 05, 2020 10:46 AM SIGNATURE: CHEYENNE Sewell PATIENT NAME: Bhavna Kovacs DATE: December 05, 2020 TIME: 10:46 AM PAGER/CONTACT #: [phone] [facility] 12-05-2020 Note HNO ID: [id number] Author: Veto Looney MD Service: Plastic Surgery Author Type: Resident Type: Progress Notes Filed: 12/05/2020 8:02 AM Note Text: PLASTIC SURGERY PROGRESS NOTE SERVICE DATE: 12/05/2020 SERVICE TIME: 6:17 AM Post-op Day: 1 Day Post-Op Surgeries/Procedures this admission: 12/04/2020: Gender affirmation bilateral mastectomy INTERVAL HISTORY: Multiple episodes of seizure like activity while in PACU yesterday. Epilepsy consulted and felt that it was like PNES. Given that he had multiple episodes, epilepsy recommending BEM and tele This AM, patient feeling ok. Complaining of some pain. Otherwise is awake, alert, and answering questions appropriately PHYSICAL EXAM: BP 114/62 Pulse 87 Temp (Src) 98.1 (Oral) Resp 18 SpO2 100% LMP 10/25/2020 O2 Therapy: Room Air, Liters: 2 General: No acute distress Pulm: Normal work of breathing on 2LNC Breast: Dressings c/d/i. No warmth, erythema, fluctuance or drainage concerning for infection at surgical sites FRANK x2 with appropriate serosanguinous output I/Os: Intake/Output Summary (Last 24 hours) at 12/05/2020 0617 Last data filed at 12/05/2020 0533 Gross per 24 hour Intake 1828 ml Output 70 ml Net 1758 ml Output by Drain (mL) 12/03/20 0700 - 12/03/20 1459 12/03/20 1500 - 12/03/20 2259 12/03/20 2300 - 12/04/20 0659 12/04/20 0700 - 12/04/20 1459 12/04/20 1500 - 12/04/20 2259 12/04/20 2300 - 12/05/20 0617 Drain/Tube 12/04/20 Assessment Jose Schwarz Right Breast 15 Drain/Tube 12/04/20 Assessment Jose Schwarz Left Breast 40 LABS: CBC Recent Labs 12/05/20 0357 12/05/19 1648 03/29/19 1455 WBC 13.42* 7.71 -- HB 13.7 15.4 15.4 HCT 39.5 45.3 45.1 PLT 181 274 -- BMP, Mg, Phos Recent Labs 12/05/20 0357 NA 137 K 4.6 CHLOR 104 CO2 19* BUN 8 CREAT 0.60 GLUC 87 CA 9.0 Medication and Non-Pharmacologic VTE Prophylaxis/Anticoagulants Assessment AND Plan 20 year old adult, 1 Day Post-Op, s/p F2M bilateral mastectomy. Surgical site(s)/Wound care: Abdominal binder, pad with ABD pads/dry gauze for comfort Neuro: epilepsy following, appreciate recs. Continue home AEDs, no need for ativan at this time as likely PNES. BEM ordered, psych consult orderd Pain: Tylenol, Oxycodone as needed, IV dilaudid for breakthrough pain Resp: Encourage incentive spirometry Fluids, Electrolytes, Nutrition: Regular diet; LR until tolerating PO Infectious Disease/Antibiotics: Bettina-op ancef Disposition: RNF Assessment and plan discussed with staff physician, Dr. Morin. SIGNATURE: Veto Looney MD PATIENT NAME: Bhavna Kovacs DATE: December 05, 2020 TIME: 6:17 AM PAGER: [phone] After 6PM AND on weekends, please page [phone] (Plastic Surgery on-call) [facility] 12-05-2020 Note HNO ID: [id number] Author: Veto Looney MD Service: Plastic Surgery Author Type: Resident Type: Plan of Care Filed: 12/04/2020 10:43 PM Note Text: Plastic Surgery Plan of Care: Another episode of shaking his head side to side with eyes closed, lasted less than 2 minutes. No hemodynamic changes. Per nursing, patient texted his sister that he was going to have a seizure moments before his episode Discussed with epilepsy team. Will give his home anti-epileptics now. No need for ativan at this time as they believe seizures are psychogenic in nature - BEM ordered - [facility] - Appreciate epilepsy recs Veto Looney MD PGY-1 Plastic Surgery P: [phone] December 04, 2020 10:42 PM After 6PM AND on weekends, please page [phone] (Plastic Surgery on-call) [facility] 12-05-2020 Note HNO ID: [id number] Author: Kirsten Landis APRN.TRIAGE REGISTER NURSE Service: Neurology Adult Epilepsy Author Type: Nurse Practitioner Type: Plan of Care Filed: 12/04/2020 10:25 PM Note Text: Plan of Care: 2119- Notified that patient having episode of shaking his head side to side for a duration of less than 2 minutes. During episode, eyes were closed without loss of consciousness. Patient seen, reports Lamictal and Dilantin were recently started by an outside neurologist a few months ago. Is currently taking Dilantin 300mg daily, Lamictal 100mg BID, and Ativan 1mg as needed. Patient drowsy on exam, no focal deficits. Discussed with staff extension clerk, would recommend EEG to capture episode as it has occurred twice now. Continue home seizure medications. Would recommend for patient to be evaluated by psych/social work given history of PNES. Kirsten Landis NP Pager: [phone] [facility] 12-04-2020 Note HNO ID: [id number] Author: Linnea Leslie DO Service: Plastic Surgery Author Type: Resident Type: Progress Notes Filed: 12/04/2020 8:17 PM Note Text: Plastic surgery progress note Patient seen in PACU. Paged by nursing that he had an episode of seizure like event. Came to bedside, seen and examined with nursing and PACU resident. Patient had just received Ativan and very drowsy. He was able to communicate with me that he was very sleepy and drowsy by nodding his head. Physical exam revealed no hematoma, bleeding at surgical site. FRANK output was 30 on the right and 10 on the left. Neurology was consulted and patient was seen together at bedside. Patient is able to follow command but too drowsy to give detailed history of recent epileptic episodes. Patient?s family and boyfriend were contacted without much success in gathering information. However given patient?s history of epilepsy and pseudo seizures, this likely can be monitored clinically overnight. Per neurology?s recommendations we will monitor him overnight without EEG, but with tele. No changes to his medication will be made for now. There is no need for Ativan acutely at this time per neurology. Will plan to watch the patient overnight. [place] [phone] if patient has additional seizures. Plastic surgery extension clerk ([id number]) was notified and patient was examined together at [place]. [place] [phone]. Kristen José Luis Leslie PGY2 plastic surgery [address] [facility] 11-26-2020 Note HNO ID: [id number] Author: Tamiko Morin MD Service: ? Author Type: Physician Type: Progress Notes Filed: 11/27/2020 3:57 PM Note Text: Plastic Surgery Note CC: Pre op HPI: Yonatan is a 20 year old adult here for pre op consent. He is scheduled for a bilateral mastectomy for gender dysphoria on 12/04/20. He was seen by anesthesia yesterday and was cleared for surgery. REVIEW OF SYSTEMS Unchanged since last visit on 09/03/20. Objective: LMP 10/25/2020 (Approximate) PAST MEDICAL HISTORY Diagnosis Date - Anxiety - Depression - Family history of epilepsy - Gender dysphoria - Panic attacks - Seizures (HCC) pseudoseizures - Traumatic brain injury (HCC) PAST SURGICAL HISTORY Procedure Laterality Date - NONE Current Outpatient Medications Medication Sig Dispense Refill - lamoTRIgine (LAMICTAL) 25 mg tablet Take 100 mg by mouth twice daily. - LORazepam (ATIVAN) 1 mg tablet Take 1 mg by mouth q 12 HR. - phenytoin ER (DILANTIN) 100 mg ER capsule Take 300 mg by mouth once daily. - metoprolol succinate ER (TOPROL XL) 100 mg Take by mouth. (Patient not taking: Reported on 11/25/2020 ) - Needle, Disp, 18 G (BD DISPOSABLE NEEDLES) 18 gauge x 1 ndle For use to withdraw testosterone Q2wks 10 Each 5 - BD LUER-MARYLOU SYRINGE 1 mL syringe for use with testosterone injection SQ Q2wks 10 Each 5 - Needle, Disp, 23 G 23 gauge x 3/4 ndle For use with testosterone administration SQ Q2wks 10 Each 5 - venlafaxine ER (EFFEXOR XR) 37.5 mg 24 hr capsule Take 1 capsule by mouth once daily. (Patient not taking: Reported on 11/25/2020 ) 30 capsule 0 - testosterone cypionate (DEPO-TESTOSTERONE) 200 mg/mL injection INJECT 100 MG (0.5 ml) SQ Q2wks 2 mL 5 - propranolol (INDERAL) 10 mg tablet Take 1 tablet by mouth three times daily. (Patient not taking: Reported on 09/03/2020 ) 90 tablet 2 No current facility-administered medications for this visit. ALLERGIES Allergen Reactions - Codeine Hives, Itching PE: AANDOx3, NAD Again, very small person, narrow nipple areolar complex. Small breast with good skin quality. A/P: Yonatan is a 20 year old adult here for pre op consent Informed consent obtained - bilateral mastectomy for gender dysphoria plan periareolar Discussed surgery and what to expect post op Follow up at the time of surgery Risk, benefits, terms discussed expectations discussed The patient is seen and examined by Dr. Morin and the following reflects his service. Scribed by Oliva Trejo RN. I agree with the Chief Complaint, ROS, and Past Histories independently gathered by the clinical sales support specialist and the remaining scribed note accurately describes my personal service to the patient. Tamiko Morin MD [facility] 11-26-2020 Note HNO ID: [id number] Author: Madeline Denney LPN Service: ? Author Type: ? Type: Progress Notes Filed: 11/26/2020 2:12 PM Note Text: [facility] See scanned documents. [facility] 11-25-2020 Note HNO ID: [id number] Author: Madeline Denney LPN Service: ? Author Type: ? Type: Progress Notes Filed: 11/25/2020 1:58 PM Note Text: Request for neurology optimization faxed to [phone], Dr. Marr. Scheduled for bl mastectomy 12/04/20. Request for recent echo faxed to [facility] as well. [facility] 12-05-2019 History of Past i llness Narrative Problem Noted Date Resolved Date Acute post-traumatic headache, not intractable 0 12/05/2019 12/11/2019 Last Assessment & Plan: Assessment: Present on admission following seizure related fall yesterday with head strike. Endorses 12/04 throbbing headache on admission. No photo/phonophobia, change in vision, nausea or vomiting. Physical exam unremarkable. CT head without contrast + bone sequence completed on 12/04/2019 WNL PLAN: - Treat symptomatically. documented as of this encounter (statuses as of 04/09/2022) [facility] noteNo assessment information availableThe [facility] Work Phone: Evaluation note* Diagnosis Seizure (HCC) Other convulsions documented [facility] Diagnosis Right kidney stone- Primary [facility] Additional Instructions If your symptoms return/worsen or you develop any further concerns or symptoms please see your doctor or return to the emergency department immediately.[facility] Work Phone: Hospital Discharge instructions Additional Instructions Follow-up with primary care doctor Return to ED if develop worsening symptoms or concernsK[facility] Work Phone: Hospital Discharge instructionsThe [facility] Work Phone: Hospital Discharge instructions Additional Instructions Continue current medsThe [facility] Work Phone: Hospital Discharge instructions Additional Instructions Continue taking your medications as prescribed Follow-up with your neurologist as scheduled Do not drive or operate heavy machinery, use ladders, swim alone, take baths with the bathroom door locked, or any other activity that could potentially be dangerous to do if you were to lose consciousness and have another seizure, until you are cleared by neurology Return for worsening seizure-like activity, confusion, fevers, neck pain, worsening headache, numbness or weakness, chest pain shortness of breath, abdominal pain, urinary complaints, nausea, vomiting.[facility] Work Phone: Hospital Discharge instructions Additional Instructions If your symptoms return/worsen or you develop any further concerns or symptoms please see your doctor or return to the emergency department immediately. Please be sure to follow-up with your neurologist.[facility] Work Phone: Hospital Discharge instructions Additional Instructions Continue your medication as prescribed Increase oral fluids Follow-up with your neurologist Return to the ER for uncontrolled seizures seizures lasting longer than 5 minutes fever or any other concernsThe [facility] Hospital Work Phone: Summary Purpose Family History No Family History Records Found Relationship Condition Age at Onset Recorded Date/T nain Not Specified No pertinent family history Unknown Advance Directives No Advanced Directives Records Found Advance Directive Response Recorded Date/ Time Advance Directives Yes January 05 1:48pm Documents on File Type Date Recorded 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 Cotton Bag 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 Advance Directive(s) 11/25/2020 10:24 AM Advance Directive Response Recorded Date/ Time Advance Directives Yes January 05 12:48pm Latest Code Status on File Code Status Date Activated Date Inactivated Comments Full Code 07/17/2017 5:41 AM 07/17/2017 8:14 PM Advance Directive Response Recorded Date/ Time Advance Directives Yes October 20, 1:02pm Advance Directive Response Recorded Date/ Time Advance Directives Yes October 20 023 12:02pm Chief Complaint and Reason for Visit Chief Complaint seizures SEIZURE Seizure SEIZURE Seizure Chief Complaint SEIZURE Chief Complaint SEIZURE seizure Chief Complaint SEIZURE seizure Seizure Chief Complaint SEIZURE seizure Seizure SEIZURES Chief Complaint SEIZURE seizure Seizure SEIZURES seizure Chief Complaint SEIZURE seizure Seizure SEIZURES seizure Seizure Chief Complaint Seizure Seizure Chief Complaint Seizure seizure Chief Complaint Seizure seizure Seizure seizure Chief Complaint seizure seizures Chief Complaint seizure seizures seizure seizure Reason for Referral Specialty Diagnoses / Procedures Referred By Contac t Referred To Contact Neurology Diagnoses Seizure (HCC) Davidson Ortez MD [address] [place] [address] Caleb Easton MD [address] [facility] [address] [place] [address] Referral ID Status Reason Start Date Expiration Date V isits Requested Visits Authorized [id number] Open Specialty Services Required 02/06/2023 08/05/2023 1 1 Question Answer Reason For External Referral? Patient Preference My clinical question is: Evaluation of seizure d/o vs PNES Comments The patient can be scheduled with any member of the group, including the provider with the first available appointments. Additional Source Comments INFORMATION SOURCE (unrecogn ized section and content) DATE CREATED AUTHOR 09/02/2018 [facility] DATE CREATED AUTHOR AUTHOR'S ORGANIZ ATION 10/20/2018 [facility] DATE CREATED AUTHOR AUTHOR'S ORGANIZ ATION 03/24/2021 [facility] DATE CREATED AUTHOR AUTHOR'S ORGANIZ ATION 09/16/2021 [facility] DATE CREATED AUTHOR AUTHOR'S ORGANIZ ATION 09/17/2021 [facility] DATE CREATED AUTHOR AUTHOR'S ORGANIZ ATION 09/28/2022 [facility] DATE CREATED AUTHOR AUTHOR'S ORGANIZ ATION 02/06/2023 [facility] DATE CREATED AUTHOR AUTHOR'S ORGANIZ ATION 05/23/2023 [facility] DATE CREATED AUTHOR AUTHOR'S ORGANIZ ATION 06/18/2023 [facility] DATE CREATED AUTHOR AUTHOR'S ORGANIZ ATION 07/10/2023 [facility] DATE CREATED AUTHOR AUTHOR'S ORGANIZ ATION 07/24/2023 [facility] Care Teams (unrecognized sec tion and content) Team Status: Inactive Member Role Status Dates Tommy Bowen , DO Emergency Provider Active Eric French , DO Primary Care Provider Active Team Status: Inactive Member Role Status Dates Eric French , DO Primary Care Provider Active Bobby Gallagher , DO Emergency Provider Active Team Status: Inactive Member Role Status Dates Eric French , DO Primary Care Provider Active Roberto Segovia , DO Emergency Provider Active Team Status: Inactive Member Role Status Dates Eric French , DO Primary Care Provider Active Luz Fiore , DO Emergency Provider Active Team Status: Active Member Role Status Dates Eric French , Primary Care Provider Active Team Status: Inactive Member Role Status Dates Eric French , Primary Care Provider Active Phyllis Roman , DO Emergency Provider Active Team Status: Inactive Member Role Status Dates Eric French , Primary Care Provider Active Mario Alberto Jose MD Emergency Provider Active [employer] Assistant Principal Relationship Specialty Start Date End Date Eric French . [address] [place] [address] PCP - General Family Medicine 03/29/19 Team Status: Inactive Member Role Status Dates Luz Fiore DO Emergency Provider Active Eric Frecnh , DO Primary Care Provider Active Brandon Verde DO RES Active Team Status: Inactive Member Role Status Dates Phyllis Roman , DO Emergency Provider Active Eric French , DO Primary Care Provider Active Aman Cortes DO RES Active Team Status: Inactive Member Role Status Dates Eric French , DO Primary Care Provider Active Attila Nelson , DO Emergency Provider Active Team Status: Inactive Member Role Status Dates Roberto Segovia , DO Emergency Provider Active Eric French , DO Primary Care Provider Active Team Status: Inactive Member Role Status Dates Shanelle Bowen PA-C Emergency Provider Active Eric DO Gillian Primary Care Provider Active Team Status: Inactive Member Role Status Dates Eric French Primary Care Provider Active Federica Wolfe , [facility] Emergency Provider Active [employer] Assistant Principal Relationship Specialty Start Date End Date Eric French Sr., DO [address] [place] [address] PCP - General Family Medicine 07/17/17 Team Status: Inactive Member Role Status Dates Eric French DO Primary Care Provider Active Margarita Gallo MD RES Active Milton Rivera PA-C Emergency Provider Active Team Status: Active Member Role Status Dates NON STAFF Primary Care Provider Active Team Status: Inactive Member Role Status Dates Mario Alberto Jose MD Emergency Provider Active NON STAFF Primary Care Provider Active Team Status: Inactive Member Role Status Dates Luz Fiore DO Emergency Provider Active NON STAFF Primary Care Provider Active [employer] Assistant Principal Relationship Specialty Start Date End Date Eric French DO Krystian [address] [place] [address] PCP - General Family Medicine 03/12/20 Goals (unrecognized section and content) Goals may be documented in a n alternate sectionGoals may be documented in an alternate sectionGoals may be documented in an alternate sectionGoals may be documented in an alternate sectionGoals may be documented in an alternate sectionGoals may be documented in an alternate sectionGoals may be documented in an alternate sectionGoals may be documented in an alternate sectionGoals may be documented in an alternate sectionGoals may be documented in an alternate sectionGoals may be documented in an alternate sectionGoals may be documented in an alternate sectionNot on filedocumented as of this encounter Source Comments (unrecognize d section and content) In the event this informatio n is protected by the Federal Confidentiality of Alcohol and Drug Abuse Patient Records regulations: The Federal rules restrict any use of the information to criminally investigate or prosecute any alcohol or drug abuse patient.[facility] Reason for Visit (unrecogniz ed section and content) Reason Comments Seizures Pt has hx of epileps y, pt has had 14 seizures today Ordered Prescriptions (unrec ognized section and content) Prescription Sig Dispensed Refills Start Date End Da te Midazolam (NAYZILAM) 5 MG/0.1ML SOLNIndications:Seizure (HCC) 5 mg by Nasal route 1 (one) time if needed (for seizure. May repeat x1 if no response after 10 minutes.) Max Daily Amount: 5 mg 2 each 0 02/06/2023 Scheduled Active and Recently Administ ered Medications (unrecognized section and content) Medication Order 02/04/2023 02/05/2023 02/06/2023 levETIRAcetam (KEPPRA) 1000 mg/100 mL IVPB (COMPLETED) 1,000 mg, IntraVENous, ONCE, 1 dose, On 02/06/23 at 1715 1716 (New Bag - Prov ider: Jace Andrade RN)[id number] (Stopped - Provider: Ama Power RN) FOR RECORDS PERTAINING TO PATIENTS WHO ARE OR HAVE BEEN ENROLLED IN A CHEMICAL DEPENDENCY/SUBSTANCEABUSE PROGRAM, SOME INFORMATION MAY BE OMITTED. This clinical summary was aggregated from multiple sources. Caution should be exercised in using it in the provision of clinical care. This summary normalizes information from multiple sources, and as a consequence, information in this document may materially change the coding, format and clinical context of patient data. In addition, data may be omitted in some cases. CLINICAL DECISIONS SHOULD BE BASED ON THE PRIMARY CLINICAL RECORDS. [employer] provides no warranty or guarantee of the accuracy or completeness of information in this document.
--- NOTE | 2023-07-29 09:26 | ED_ITS ---
HPI - General Adult General Chief complaint: Abdominal Pain Stated complaint: BLOOD IN URINE Time Seen by Provider: 07/29/23 09:08 Source: patient Mode of arrival: walk-in Limitations: no limitations History of Present Illness HPI narrative: Patient here with left-sided flank pain. He describes it 01/03 in severity. Some nausea but no vomiting. He was at a different emergency room yesterday. He is known to have bilateral ureterolithiasis and is under the care of urologist, Dr. Tse and, in [facility]. He has had 1 previous surgical procedure but has never had stenting. He has not had fever shakes or chills. At the ER yesterday, he was told that he did not have an infection. He did not have a CT scan at that time. Related Data Home Medications Medication Instructions Recorded Confirmed lamotrigine 100 mg tablet 100 mg PO BID 01/01/23 01/01/23 (Lamictal) levetiracetam 1,000 mg tablet 1,000 mg PO BID 01/01/23 01/01/23 (Keppra) Allergies Allergy/AdvReac Type Severity Reaction Status Date / Time codeine Allergy Unknown Verified 01/04/23 14:46 PFSH PFS Social History (System 01/04/23 @ 14:46 by Geena Sanford) Smoking status: Never smoker Exam Narrative Exam Narrative: Awake alert pleasant appears mild to moderately uncomfortable. Vital signs are stable he is not tachycardic. Skin is warm and dry he is not clammy or diaphoretic. He is not pacing about in the room he is sitting comfortably. Does not have any abdominal tenderness. Urinalysis was obtained that shows a lot of what appears to be old bloody clots and debris. Constitutional Vital Signs, click to edit/add: Last Vital Signs Temp 98 F 07/29/23 09:10 Pulse 68 07/29/23 09:10 Resp 16 07/29/23 09:10 BP 111/75 07/29/23 09:10 Pulse Ox 100 07/29/23 09:10 O2 Del Method Room Air 07/29/23 09:10 Course Vital Signs Vital signs: Vital Signs Temperature 98 F 07/29/23 09:10 Pulse Rate 68 07/29/23 09:10 Respiratory Rate 16 07/29/23 09:10 Blood Pressure 111/75 07/29/23 09:10 Pulse Oximetry 100 07/29/23 09:10 Oxygen Delivery Method Room Air 07/29/23 09:10 Temperature 98 F 07/29/23 09:10 Pulse Rate 68 07/29/23 09:10 Respiratory Rate 16 07/29/23 09:10 Blood Pressure 111/75 07/29/23 09:10 Pulse Oximetry 100 07/29/23 09:10 Oxygen Delivery Method Room Air 07/29/23 09:10 Medical Decision Making MDM Narrative Medical decision making narrative: Records were obtained from the other emergency room visit yesterday and her lab testing was normal. A bladder scan was done at that facility was normal. Today CT scan shows bilateral nonobstructing kidney stones. It also shows left adnexal cystic structure which is probably the etiology of the discomfort. Her vital signs and white blood cell count are normal. Symptomatic treatment with [id number] NSAIDs was advised Discharge Plan Discharge Chief Complaint: Abdominal Pain Clinical Impression: Left lateral abdominal pain Patient Disposition: Home, Self-Care Time of Disposition Decision: 10:37 Prescriptions / Home Meds: No Action levetiracetam [Keppra] 1,000 mg tablet 1,000 mg PO BID lamotrigine [Lamictal] 100 mg tablet 100 mg PO BID Additional Instructions: May use [id number]-[id number]-[id number]'s NSAIDs such as 2 Aleve twice a day Stand Alone Forms: Portal Instructions Referrals: KAVIN FRENCH [Primary Care Provider] - 1 week
--- NOTE | 2023-07-29 09:31 | CT_ITS ---
[address] [address] Patient Name: BHAVNA VILLAR MRN: [id number] date: 2000 Sex: F Assigned Patient Location: ER Current Patient Location: ER Accession/Order Number: [id number] Exam Date: 07/29/2023 09:55 Report Date: 07/29/2023 10:13 At the request of: JACK ANGELO Procedure: CT abdomen pelvis wo con EXAMINATION: CT abdomen pelvis wo con HISTORY: Kidney stone left side COMPARISON: No relevant comparison available. TECHNIQUE: Axial, Coronal, and Sagittal images were created without IV contrast. Dose reduction techniques were achieved by using automated exposure control and/or adjustment of mA and/or kV according to patient size and/or use of iterative reconstruction technique. FINDINGS: LUNG BASES: No visible pulmonary or pleural disease. LIVER: No enlargement, atrophy, abnormal density, or significant focal lesion. BILIARY: No dilatation or calcification. PANCREAS: No lesion, fluid collection, ductal dilatation, or atrophy. SPLEEN: No enlargement or focal lesion. ADRENALS: Normal KIDNEYS: Bilateral nonobstructing nephrolithiasis. No hydronephrosis BOWEL/MESENTERY: Moderate stool in the rectum. Nonobstructive bowel gas pattern normal appendix AORTA/VASCULAR: No aneurysm or dissection. RETROPERITONEUM: No mass or adenopathy. LYMPH NODES: No adenopathy. URINARY BLADDER: No visible focal wall thickening, lesion, or calculus. PELVIC ORGANS: 2.8 cm left adnexal cyst measuring 18 Hounsfield units ABDOMINAL WALL: No mass or hernia. BONES: No bony lesion or fracture. OTHER: Negative. CT/CT abdomen pelvis wo con IMPRESSION: Bilateral nonobstructing nephrolithiasis 2.8 cm left adnexal cyst Electronically authenticated by: DEBBIE SALINAS Date: 07/29/2023 10:13
[2023-07-29 09:41] LABS: Bilirubin Urine NEGATIVE (NEGATIVE); Blood Urine LARGE (NEGATIVE); Clarity Urine CLEAR (CLEAR); Color Urine YELLOW (YELLOW); Glucose Urine UA NEGATIVE (NEGATIVE); Ketones Urine NEGATIVE (NEGATIVE); Leukocyte Esterase Urine NEGATIVE (NEGATIVE); Nitrite Urine NEGATIVE (NEGATIVE); Protein Urine TRACE mg/dL (NEG/TRACE); Specific Gravity Urine >=1.030 (1.005-1.025); Urobilinogen Urine 0.2 EU/dL (0.2-1.0)
[2023-07-29] MEDS: KETOROLAC TROMETHAMINE 30 MG/ML VIAL IVP (09:45)
[2023-07-29 09:55] LABS: Anion Gap 11.5; BUN Creatinine Ratio 8.2; Calcium 9.4 mg/dL (8.5-10.1); Carbon Dioxide 30.3 mmol/L (21.0-32.0); Chloride 102 mmol/L (98-107); Estimated GFR (African America >60 (>=60); Estimated GFR (Non-African Ame >60 (>=60); Glucose 92 mg/dL (74-106); Potassium 3.8 mmol/L (3.5-5.1); Sodium 140 mmol/L (136-145)
[2023-07-29 09:57] LABS: Urine Microscopic Indicated YES
[2023-07-29 09:58] LABS: Basophils Percent Auto 0.4 % (0.2-2.0); Eosinophils Absolute Auto 0.1 10^3/uL (0.0-0.7); Eosinophils Percent Auto 1.3 % (0.9-7.0); Hematocrit 41.4 % (36.0-48.0); Hemoglobin 13.4 g/dL (12.0-16.0); Immature Granulocytes Abs Auto 0.02 10^3/uL (0.00-0.03); Immature Granulocytes Pct Auto 0.3 % (0.0-0.5); Lymphocytes Absolute Auto 3.5 10^3/uL (1.2-3.8); Lymphocytes Percent Auto 46.3 % (20.5-60.0); Mean Corpuscular HGB Conc 32.4 g/dL (29.9-35.2); Mean Corpuscular Hemoglobin 28.2 pg (26.7-34.0); Mean Platelet Volume 9.7 fL (9.5-13.5); Monocytes Absolute Auto 0.5 10^3/uL (0.3-0.8); Monocytes Percent Auto 7.1 % (1.7-12.0); Neutrophils Absolute Auto 3.4 10^3/uL (1.4-6.5); Neutrophils Percent Auto 44.6 % (43.0-75.0); Platelet Count 282 10^3/uL (150-450); Red Blood Count 4.76 10^6/uL (4.20-5.40); Red Cell Distribution Width 12.8 % (11.0-15.0); White Blood Count 7.6 10^3/uL (4.0-11.0)
[2023-07-29 10:08] LABS: Bacteria Urine SMALL #/HPF (NONE SEEN); Mucus Urine MODERATE (NONE SEEN); RBC Urine 20-50 #/HPF (0-2); Squamous Epithelial Cell Urine FEW #/LPF (NONE/RARE); WBC Urine 0-2 #/HPF (NONE SEEN)
[2023-07-29 10:09] LABS: Urine Culture Indicated YES
== END 2023-07-29 10:47 | disposition home or self-care (01) ==
PROVIDERS: Emergency Provider Emergency Medicine Emergency Medical Services; PCP Family Medicine
DX: R10.9 Unspecified abdominal pain (principal); Z79.899 Other long term (current) drug therapy; Z87.442 Personal history of urinary calculi
CPT/HCPCS: 36415; 74176; 80048; 81001; 84703; 85025; 87086; 96374; 99284; J1885

== ENCOUNTER 2023-08-23 17:14 | Emergency (ER) | payer OTHER, SELFPAY ==
[2023-08-23] VITALS (47 sets, daily range): BP systolic 91–123; BP diastolic 52–76; PULSE 74–115; RESP 13–27; TEMP 36.4–36.6; O2SAT 94–100; BMI 29.5
[2023-08-23 17:31] LABS: Glucometer 101 mg/dL (74-106)
--- NOTE | 2023-08-23 17:37 | ECG_ITS ---
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
[2023-08-23] MEDS: LORAZEPAM 2 MG/ML 1 ML VIAL IV (17:49)
[2023-08-23] MEDS: ONDANSETRON PF 4 MG/2 ML VIAL IV (17:49)
[2023-08-23] MEDS: PHENYTOIN SODIUM 1,000 MG in 0.9 % SODIUM CHLORIDE 100 ML 240 MG IV (17:50)
[2023-08-23 17:55] LABS: Basophils Percent Auto 0.4 % (0.2-2.0); Eosinophils Percent Auto 0.3 % (0.9-7.0); Hematocrit 36.5 % (36.0-48.0); Hemoglobin 11.8 g/dL (12.0-16.0); Immature Granulocytes Abs Auto 0.01 10^3/uL (0.00-0.03); Immature Granulocytes Pct Auto 0.1 % (0.0-0.5); Lymphocytes Absolute Auto 2.2 10^3/uL (1.2-3.8); Lymphocytes Percent Auto 30.7 % (20.5-60.0); Mean Corpuscular HGB Conc 32.3 g/dL (29.9-35.2); Mean Corpuscular Hemoglobin 28.1 pg (26.7-34.0); Mean Corpuscular Volume 86.9 fL (81.0-99.0); Mean Platelet Volume 9.5 fL (9.5-13.5); Monocytes Absolute Auto 0.5 10^3/uL (0.3-0.8); Monocytes Percent Auto 7.7 % (1.7-12.0); Neutrophils Absolute Auto 4.3 10^3/uL (1.4-6.5); Neutrophils Percent Auto 60.8 % (43.0-75.0); Platelet Count 240 10^3/uL (150-450); Red Cell Distribution Width 12.5 % (11.0-15.0)
--- NOTE | 2023-08-23 17:59 | ED_ITS ---
Documented by User: Gerardo Smith MD 08/23/23 20:15 HPI - General Adult General Chief complaint: Seizure Stated complaint: Seizure Time Seen by Provider: 08/23/23 17:29 Source: patient Source information: EMS Mode of arrival: ambulance Limitations: no limitations History of Present Illness HPI narrative: Patient is a 23-year-old female who is presenting to the ER with chief complaint of multiple seizures today. Patient's guardian is at bedside and helps with history as well. Short history was obtained from EMS staff. Patient was at the park with family, patient was skateboarding. Patient lost his balance, falling forward. Patient has a small laceration to his chin. When patient's chin hit the ground, he had approximately 4 separate seizures. EMS staff arrived, and brought patient to [facility]. Patient had another seizure with EMS staff. Patient had another seizure in the ER, lasting approximately 20 seconds, tonic- clonic. Patient has longstanding history of seizure. Patient has been on Keppra in the past and it has not worked. Patient is on Lamictal, Briviact, and clobazam. Patient's neurologist is Dr. Caleb Easton. Patient currently has a headache, mild nausea. Patient has bilateral forehead tenderness and pain/headache. Patient has no significant pain to other facial bones, no mandibular pain associated with chin laceration. Patient's dentition is intact. Patient did not bite his tongue. He has had no urinary or bowel incontinence. Patient states his muscles are sore. Patient is having lower back pain and mild rib pain. Patient has had no nausea or vomiting, no signs of aspiration. Patient just recently had a loop recorder recently placed to the left upper chest wall at [facility] to monitor for arrhythmias. Patient has no vagal stimulator. Patient is going to have a future surgery most likely to the brain if needed, they are going to be doing brain mapping in the beginning of August with Dr. Caleb Easton. Patient arrived in a cervical collar. All systems are negative except as noted/marked. All systems reviewed and otherwise negative. Nurses note and vital signs reviewed and patient is not hypoxic. General: The patient appears well and in no apparent distress. Patient is resting comfortably on cart. Patient is not toxic, slightly lethargic but most likely postictal, not listless Skin: Warm, dry, no pallor noted. There is no rash noted. No petechiae, purpura; patient has a 1.5-2cm stellate laceration to his chin, patient is in a cervical collar. Head: Normocephalic, no scalp hematoma. No midline or paracervical tenderness to palpation, patient will remain in a cervical collar secondary to multiple seizures and hitting his head. Eye: Normal conjunctiva, no drainage, EOMI. PERRL. Patient's pupils are 4/2, equal, bilateral. Ears, Nose, Mouth, and Throat: oral mucosa is moist. Dentition is intact. Nares patent. Mouth without vesicles. No epistaxis, no scalp hematoma, no septal hematoma, no septal deviation. Cardiovascular: Regular Rate and Rhythm, no murmur, gallop, rub Respiratory: Patient is in no distress, no accessory muscle use, lungs are clear to auscultation, no wheezing, rales or rhonchi Back: Patient is having midline L3-L5 and paralumbar tenderness to palpation, non-tender, no CVA tenderness bilaterally to percussion. No CT LS midline pain GI: no tenderness to palpation, no masses appreciated. No rebound, guarding, or rigidity noted. No distention Musculoskeletal: Patient has full range of motion of all of the extremities with no obvious grimace to patient's face, no obvious signs of distracting injury, fracture or dislocation to bilateral upper arms and lower legs, no obvious motor, sensory, or focal neurological deficits; patient is slightly postictal, patient has soreness with range of motion of bilateral lower extremities, but patient has no specific joint pain. Neurological: A&O x4, normal speech, patient is soft-spoken. Psychiatric: Cooperative Related Data Home Medications Medication Instructions Recorded Confirmed lamotrigine 100 mg tablet 100 mg PO BID 01/01/23 08/23/23 (Lamictal) brivaracetam 50 mg tablet 50 mg PO Q12H 08/23/23 08/23/23 (Briviact) cefuroxime axetil 250 mg tablet 250 mg PO Q12H 08/23/23 08/23/23 clobazam 10 mg tablet 10 mg PO .qhs 08/23/23 08/23/23 Allergies Allergy/AdvReac Type Severity Reaction Status Date / Time codeine Allergy Unknown Verified 01/04/23 14:46 PFSH PFSH Social History (System 01/04/23 @ 14:46 by Geena Sanford) Smoking status: Current every day smoker Exam Constitutional Vital Signs, click to edit/add: Last Vital Signs Temp 97.5 F L 08/23/23 20:24 Pulse 94 H 08/24/23 04:50 Resp 27 H 08/24/23 04:50 BP 93/69 08/24/23 04:45 Pulse Ox 94 L 08/24/23 04:50 Course Vital Signs Vital signs: Vital Signs Blood Pressure 102/69 08/23/23 17:18 Temperature 97.5 F L 08/23/23 20:24 Pulse Rate 94 H 08/24/23 04:50 Respiratory Rate 27 H 08/24/23 04:50 Blood Pressure 93/69 08/24/23 04:45 Pulse Oximetry 94 L 08/24/23 04:50 Medical Decision Making MDM Narrative Medical decision making narrative: Patient has no eleevated white blood cells, patient's pH venous gas are normal. Lactic acid is slightly elevated. Questionable whether patient is having seizure versus pseudoseizure. Patient has been given the IV fluids, 1 g of Dilantin secondary to multiple seizures today, and 2 mg of Ativan IV. Patient's guardian is at bedside as well. Patient is transitioning from female to male. Patient has been given Zofran to help with nausea and Toradol IV to help with patient's muscle pain. Patient CT of the brain, cervical spine, chest x-ray, lumbar x-ray had not been read at time of transitioned to Dr. Gongora at approximately 1930. 1919 I did speak to Dr. Bonilla, who is covering for neurology at [facility]. Patient has been admitted to the hospital several times at [facility] and [facility] for seizures. Dr. Bonilla stated he would see the patient tomorrow in consultation if the hospitalist at [facility] would accept him. He had no other recommendations at this time. He is aware that patient is established with Dr. Easton. 1929 Patient's case is transitioned to Dr. Gongora. He will perform final disposition and transfer of patient. Accumulation of time performed by Dr. Smith and Dr Gongora. Critical care time 33 minutes exclusive from separate billable procedures that were performed. The following was considered in the determination of critical care but not limited to the level of medical decision making, intensive cardiac and/or respiratory monitoring, frequent vital sign monitoring, evaluation of laboratory studies, evaluation of radiographic studies, oxygen monitoring, and constant monitoring and speaking to family at bedside Lab Data Lab results reviewed: Yes I reviewed the patient's lab results Labs: Lab Results 08/23/23 08/23/23 08/23/23 Range/Units 17:30 17:48 20:44 WBC 7.0 (4.0-11.0) 10^3/uL RBC 4.20 (4.20-5.40) 10^6/uL Hgb 11.8 L (12.0-16.0) g/dL Hct 36.5 (36.0-48.0) % MCV 86.9 (81.0-99.0) fL MCH 28.1 (26.7-34.0) pg MCHC 32.3 (29.9-35.2) g/dL RDW 12.5 (11.0-15.0) % Plt Count 240 (150-450) 10^3/uL MPV 9.5 (9.5-13.5) fL Neut % (Auto) 60.8 (43.0-75.0) % Lymph % (Auto) 30.7 (20.5-60.0) % [place] % (Auto) 7.7 (1.7-12.0) % Eos % (Auto) 0.3 L (0.9-7.0) % Baso % (Auto) 0.4 (0.2-2.0) % Neut # (Auto) 4.3 (1.4-6.5) 10^3/uL Lymph # (Auto) 2.2 (1.2-3.8) 10^3/uL [place] # (Auto) 0.5 (0.3-0.8) 10^3/uL Eos # (Auto) 0.0 (0.0-0.7) 10^3/uL Baso # (Auto) 0.0 (0.0-0.1) 10^3/uL Abs Immat Gran (auto) 0.01 (0.00-0.03) 10^3/uL Imm/Tot Granulo (auto) 0.1 (0.0-0.5) % VBG pH 7.420 (7.330-7.430) VBG pCO2 43.5 (40.0-52.0) mmHg Sodium 145 (136-145) mmol/L Potassium 3.4 L (3.5-5.1) mmol/L Chloride 106 (98-107) mmol/L Carbon Dioxide 29.3 (21.0-32.0) mmol/L Anion Gap 13.1 BUN 8.0 (7.0-18.0) mg/dL Creatinine 0.89 (0.55-1.02) mg/dL Est GFR ( Amer) >60 (>=60) Est GFR (Non-Af Amer) >60 (>=60) BUN/Creatinine Ratio 9.0 Glucose 81 (74-106) mg/dL Lactate 2.2 H* 0.9 (0.4-2.0) mmol/L Calcium 9.1 (8.5-10.1) mg/dL Magnesium 1.8 (1.8-2.4) mg/dL Total Bilirubin 0.4 (0.2-1.0) mg/dL AST 16 (15-37) U/L ALT 10 L (14-59) U/L Alkaline Phosphatase 54 (46-116) U/L Total Creatine Kinase 102 (26-192) U/L CK-MB (CK-2) 0.54 (<=3.60) ng/mL Myoglobin 76 (9-82) ng/mL Troponin I High Sens 4.2 (4.0-51.3) pg/mL Total Protein 7.2 (6.4-8.2) g/dL Albumin 4.0 (3.4-5.0) g/dL Globulin 3.2 g/dL Albumin/Globulin Ratio 1.3 Lipase 23.0 (16.0-77.0) U/L Ethanol Quant <3 mg/dL POC Glucose 101 (74-106) mg/dL 08/23/23 08/24/23 Range/Units 22:14 04:40 WBC (4.0-11.0) 10^3/uL RBC (4.20-5.40) 10^6/uL Hgb (12.0-16.0) g/dL Hct (36.0-48.0) % MCV (81.0-99.0) fL MCH (26.7-34.0) pg MCHC (29.9-35.2) g/dL RDW (11.0-15.0) % Plt Count (150-450) 10^3/uL MPV (9.5-13.5) fL Neut % (Auto) (43.0-75.0) % Lymph % (Auto) (20.5-60.0) % [place] % (Auto) (1.7-12.0) % Eos % (Auto) (0.9-7.0) % Baso % (Auto) (0.2-2.0) % Neut # (Auto) (1.4-6.5) 10^3/uL Lymph # (Auto) (1.2-3.8) 10^3/uL [place] # (Auto) (0.3-0.8) 10^3/uL Eos # (Auto) (0.0-0.7) 10^3/uL Baso # (Auto) (0.0-0.1) 10^3/uL Abs Immat Gran (auto) (0.00-0.03) 10^3/uL Imm/Tot Granulo (auto) (0.0-0.5) % VBG pH (7.330-7.430) VBG pCO2 (40.0-52.0) mmHg Sodium (136-145) mmol/L Potassium (3.5-5.1) mmol/L Chloride (98-107) mmol/L Carbon Dioxide (21.0-32.0) mmol/L Anion Gap BUN (7.0-18.0) mg/dL Creatinine (0.55-1.02) mg/dL Est GFR ( Amer) (>=60) Est GFR (Non-Af Amer) (>=60) BUN/Creatinine Ratio Glucose (74-106) mg/dL Lactate (0.4-2.0) mmol/L Calcium (8.5-10.1) mg/dL Magnesium 1.7 L (1.8-2.4) mg/dL Total Bilirubin (0.2-1.0) mg/dL AST (15-37) U/L ALT (14-59) U/L Alkaline Phosphatase (46-116) U/L Total Creatine Kinase (26-192) U/L CK-MB (CK-2) (<=3.60) ng/mL Myoglobin (9-82) ng/mL Troponin I High Sens (4.0-51.3) pg/mL Total Protein (6.4-8.2) g/dL Albumin (3.4-5.0) g/dL Globulin g/dL Albumin/Globulin Ratio Lipase (16.0-77.0) U/L Ethanol Quant mg/dL POC Glucose 101 (74-106) mg/dL ECG Data Attestation: I personally reviewed and interpreted this ECG as follows: Discharge Plan Discharge Chief Complaint: Seizure Clinical Impression: Laceration of skin of chin, CHI (closed head injury), Seizure Patient Disposition: [facility] Condition: Fair Documented by User: Sandro Gongora MD 08/24/23 06:44 HPI - General Adult General Chief complaint: Seizure Stated complaint: Seizure Time Seen by Provider: 08/23/23 17:29 Related Data Home Medications Medication Instructions Recorded Confirmed lamotrigine 100 mg tablet 100 mg PO BID 01/01/23 08/23/23 (Lamictal) brivaracetam 50 mg tablet 50 mg PO Q12H 08/23/23 08/23/23 (Briviact) cefuroxime axetil 250 mg tablet 250 mg PO Q12H 08/23/23 08/23/23 clobazam 10 mg tablet 10 mg PO .qhs 08/23/23 08/23/23 Allergies Allergy/AdvReac Type Severity Reaction Status Date / Time codeine Allergy Unknown Verified 01/04/23 14:46 PFSH PFSH Social History (System 01/04/23 @ 14:46 by Geena Sanford) Smoking status: Current every day smoker Exam Constitutional Vital Signs, click to edit/add: Last Vital Signs Temp 97.5 F L 08/23/23 20:24 Pulse 94 H 08/24/23 04:50 Resp 27 H 08/24/23 04:50 BP 93/69 08/24/23 04:45 Pulse Ox 94 L 08/24/23 04:50 Course Vital Signs Vital signs: Vital Signs Blood Pressure 102/69 08/23/23 17:18 Temperature 97.5 F L 08/23/23 20:24 Pulse Rate 94 H 08/24/23 04:50 Respiratory Rate 27 H 08/24/23 04:50 Blood Pressure 93/69 08/24/23 04:45 Pulse Oximetry 94 L 08/24/23 04:50 Medical Decision Making MDM Narrative Medical decision making narrative: Patient has no eleevated white blood cells, patient's pH venous gas are normal. Lactic acid is slightly elevated. Questionable whether patient is having seizure versus pseudoseizure. Patient has been given the IV fluids, 1 g of Dilantin secondary to multiple seizures today, and 2 mg of Ativan IV. Patient's guardian is at bedside as well. Patient is transitioning from female to male. Patient has been given Zofran to help with nausea and Toradol IV to help with patient's muscle pain. Patient CT of the brain, cervical spine, chest x-ray, lumbar x-ray had not been read at time of transitioned to Dr. Gongora at approximately 1929. 1919 I did speak to Dr. Bonilla, who is covering for neurology at [facility]. Patient has been admitted to the hospital several times at [facility] and [facility] for seizures. Dr. Bonilla stated he would see the patient tomorrow in consultation if the hospitalist at [facility] would accept him. He had no other recommendations at this time. He is aware that patient is established with Dr. Easton. 1929 Patient's case is transitioned to Dr. Gongora. He will perform final disposition and transfer of patient. Accumulation of time performed by Dr. Smith and Dr Gongora. Critical care time 33 minutes exclusive from separate billable procedures that were performed. The following was considered in the determination of critical care but not limited to the level of medical decision making, intensive cardiac and/or respiratory monitoring, frequent vital sign monitoring, evaluation of laboratory studies, evaluation of radiographic studies, oxygen monitoring, and constant monitoring and speaking to family at bedside care transferred at change of shift. Patient request transfer to [facility]. Discussed with Neurologist Dr Bearden who stated that Neurology could consult on the patient. Would need to be admitted to Hospitalist service. Discussed with Hospitalist and patient accepted for admission Lab Data Labs: Lab Results 08/23/23 08/23/23 08/23/23 Range/Units 17:30 17:48 20:44 WBC 7.0 (4.0-11.0) 10^3/uL RBC 4.20 (4.20-5.40) 10^6/uL Hgb 11.8 L (12.0-16.0) g/dL Hct 36.5 (36.0-48.0) % MCV 86.9 (81.0-99.0) fL MCH 28.1 (26.7-34.0) pg MCHC 32.3 (29.9-35.2) g/dL RDW 12.5 (11.0-15.0) % Plt Count 240 (150-450) 10^3/uL MPV 9.5 (9.5-13.5) fL Neut % (Auto) 60.8 (43.0-75.0) % Lymph % (Auto) 30.7 (20.5-60.0) % [place] % (Auto) 7.7 (1.7-12.0) % Eos % (Auto) 0.3 L (0.9-7.0) % Baso % (Auto) 0.4 (0.2-2.0) % Neut # (Auto) 4.3 (1.4-6.5) 10^3/uL Lymph # (Auto) 2.2 (1.2-3.8) 10^3/uL [place] # (Auto) 0.5 (0.3-0.8) 10^3/uL Eos # (Auto) 0.0 (0.0-0.7) 10^3/uL Baso # (Auto) 0.0 (0.0-0.1) 10^3/uL Abs Immat Gran (auto) 0.01 (0.00-0.03) 10^3/uL Imm/Tot Granulo (auto) 0.1 (0.0-0.5) % VBG pH 7.420 (7.330-7.430) VBG pCO2 43.5 (40.0-52.0) mmHg Sodium 145 (136-145) mmol/L Potassium 3.4 L (3.5-5.1) mmol/L Chloride 106 (98-107) mmol/L Carbon Dioxide 29.3 (21.0-32.0) mmol/L Anion Gap 13.1 BUN 8.0 (7.0-18.0) mg/dL Creatinine 0.89 (0.55-1.02) mg/dL Est GFR ( Amer) >60 (>=60) Est GFR (Non-Af Amer) >60 (>=60) BUN/Creatinine Ratio 9.0 Glucose 81 (74-106) mg/dL Lactate 2.2 H* 0.9 (0.4-2.0) mmol/L Calcium 9.1 (8.5-10.1) mg/dL Magnesium 1.8 (1.8-2.4) mg/dL Total Bilirubin 0.4 (0.2-1.0) mg/dL AST 16 (15-37) U/L ALT 10 L (14-59) U/L Alkaline Phosphatase 54 (46-116) U/L Total Creatine Kinase 102 (26-192) U/L CK-MB (CK-2) 0.54 (<=3.60) ng/mL Myoglobin 76 (9-82) ng/mL Troponin I High Sens 4.2 (4.0-51.3) pg/mL Total Protein 7.2 (6.4-8.2) g/dL Albumin 4.0 (3.4-5.0) g/dL Globulin 3.2 g/dL Albumin/Globulin Ratio 1.3 Lipase 23.0 (16.0-77.0) U/L Ethanol Quant <3 mg/dL POC Glucose 101 (74-106) mg/dL 08/23/23 08/24/23 Range/Units 22:14 04:40 WBC (4.0-11.0) 10^3/uL RBC (4.20-5.40) 10^6/uL Hgb (12.0-16.0) g/dL Hct (36.0-48.0) % MCV (81.0-99.0) fL MCH (26.7-34.0) pg MCHC (29.9-35.2) g/dL RDW (11.0-15.0) % Plt Count (150-450) 10^3/uL MPV (9.5-13.5) fL Neut % (Auto) (43.0-75.0) % Lymph % (Auto) (20.5-60.0) % [place] % (Auto) (1.7-12.0) % Eos % (Auto) (0.9-7.0) % Baso % (Auto) (0.2-2.0) % Neut # (Auto) (1.4-6.5) 10^3/uL Lymph # (Auto) (1.2-3.8) 10^3/uL [place] # (Auto) (0.3-0.8) 10^3/uL Eos # (Auto) (0.0-0.7) 10^3/uL Baso # (Auto) (0.0-0.1) 10^3/uL Abs Immat Gran (auto) (0.00-0.03) 10^3/uL Imm/Tot Granulo (auto) (0.0-0.5) % VBG pH (7.330-7.430) VBG pCO2 (40.0-52.0) mmHg Sodium (136-145) mmol/L Potassium (3.5-5.1) mmol/L Chloride (98-107) mmol/L Carbon Dioxide (21.0-32.0) mmol/L Anion Gap BUN (7.0-18.0) mg/dL Creatinine (0.55-1.02) mg/dL Est GFR ( Amer) (>=60) Est GFR (Non-Af Amer) (>=60) BUN/Creatinine Ratio Glucose (74-106) mg/dL Lactate (0.4-2.0) mmol/L Calcium (8.5-10.1) mg/dL Magnesium 1.7 L (1.8-2.4) mg/dL Total Bilirubin (0.2-1.0) mg/dL AST (15-37) U/L ALT (14-59) U/L Alkaline Phosphatase (46-116) U/L Total Creatine Kinase (26-192) U/L CK-MB (CK-2) (<=3.60) ng/mL Myoglobin (9-82) ng/mL Troponin I High Sens (4.0-51.3) pg/mL Total Protein (6.4-8.2) g/dL Albumin (3.4-5.0) g/dL Globulin g/dL Albumin/Globulin Ratio Lipase (16.0-77.0) U/L Ethanol Quant mg/dL POC Glucose 101 (74-106) mg/dL Discharge Plan Discharge Chief Complaint: Seizure Clinical Impression: Laceration of skin of chin, CHI (closed head injury), Seizure Patient Disposition: [facility] Condition: Fair Procedures ED Procedure Instructions Procedures Procedures: chin lac.2.5cm with SQ exposure. 1% lido with epi as a local. Cleaned with Betadine and saline. Closed with # 3 5.0 nylon stitches. Tolerated well. No complications
[2023-08-23 18:05] LABS: PCO2 VBG 43.5 mmHg (40.0-52.0)
--- NOTE | 2023-08-23 18:09 | XR_ITS ---
The [address] [address] Patient Name: BHAVNA VILLAR MRN: [id number] date: 2000 Sex: F Assigned Patient Location: ER Current Patient Location: ED.MAIN Accession/Order Number: [id number] Exam Date: 08/23/2023 17:58 Report Date: 08/23/2023 18:45 At the request of: ABRAN STEWART Procedure: XR chest 1V EXAM: XR chest 1V HISTORY: seizure COMPARISON: None. TECHNIQUE: Chest X-ray AP, 1 view FINDINGS: Support devices: None. Lungs/pleura: No consolidation, effusion, or pneumothorax. Heart and mediastinum: Normal contours. Bones: No acute abnormality identified. XR/XR chest 1V Impression: No radiographic evidence of acute cardiopulmonary process. Electronically authenticated by: KENZIE VELARDE Date: 08/23/2023 18:45
--- NOTE | 2023-08-23 18:09 | CT_ITS ---
The [address] [address] Patient Name: BHAVNA VILLAR MRN: [id number] date: 2000 Sex: F Assigned Patient Location: ER Current Patient Location: .[facility] Accession/Order Number: [id number] Exam Date: 08/23/2023 17:58 Report Date: 08/23/2023 18:56 At the request of: ABRAN STEWART Procedure: CT head/brain wo con EXAM: CT head/brain wo con HISTORY: Patient fell and now with seizure. TECHNIQUE: Axial CT scans through the head were obtained without IV contrast administration. Dose reduction techniques were achieved by using: automated exposure control and/or adjustment of mA and /or kV according to patient size and/or use of iterative reconstruction technique. COMPARISON: None. FINDINGS: The cerebral hemispheres have normal white and hodges matter and corticomedullary differentiation. To the limit of CT, the posterior fossa appears unremarkable. The ventricular system and cortical sulci are normal for the patient's age. No depressed skull fracture. No area of abnormal mass-effect or edema or intracranial hemorrhage. The visualized orbits show no gross mass. The visualized paranasal sinuses show no air-fluid level. Mastoid air cells are clear. CT/CT head/brain wo con IMPRESSION: No acute intracranial process. Electronically authenticated by: MELCHOR CORNEJO Date: 08/23/2023 18:56
--- NOTE | 2023-08-23 18:09 | CT_ITS ---
The [address] [address] Patient Name: BHAVNA VILLAR MRN: [id number] date: 2000 Sex: F Assigned Patient Location: ER Current Patient Location: ED.[facility] Accession/Order Number: [id number] Exam Date: 08/23/2023 17:58 Report Date: 08/23/2023 18:50 At the request of: ABRAN STEWART Procedure: CT cervical spine wo con EXAM: CT cervical spine wo con COMPARISON: 09/15/2020. CLINICAL INDICATION: seizure TECHNIQUE: Multiplanar CT images of the cervical spine without contrast. Dose reduction techniques were achieved by using automated exposure control and/or adjustment of mA and/or kV according to patient size and/or use of iterative reconstruction technique. FINDINGS: No CT evidence of acute osseous abnormality. No prevertebral soft tissue swelling. Straightening/reversal of the normal cervical lordosis, may be positional or may suggest muscle spasm. No spondylolisthesis. No significant degenerative change. No evidence of spinal canal or foraminal stenosis. No acute findings in the visualized upper chest. CT/CT cervical spine wo con IMPRESSION: No evidence of acute osseous abnormality of the cervical spine. Electronically authenticated by: QUAN SMART Date: 08/23/2023 18:50
[2023-08-23 18:19] LABS: Alanine Aminotransferase 10 U/L (14-59); Albumin Globulin Ratio 1.3; Alkaline Phosphatase 54 U/L (46-116); Anion Gap 13.1; Aspartate Amino Transferase 16 U/L (15-37); Bilirubin Total 0.4 mg/dL (0.2-1.0); Calcium 9.1 mg/dL (8.5-10.1); Carbon Dioxide 29.3 mmol/L (21.0-32.0); Chloride 106 mmol/L (98-107); Creatine Kinase 102 U/L (26-192); Creatine Kinase MB 0.54 ng/mL (<=3.60); Estimated GFR (African America >60 (>=60); Estimated GFR (Non-African Ame >60 (>=60); Ethanol <3 mg/dL; Globulin 3.2 g/dL; Glucose 81 mg/dL (74-106); Magnesium 1.8 mg/dL (1.8-2.4); Myoglobin 76 ng/mL (9-82); Potassium 3.4 mmol/L (3.5-5.1); Sodium 145 mmol/L (136-145); Total Protein 7.2 g/dL (6.4-8.2); Troponin I High Sensitivity 4.2 pg/mL (4.0-51.3)
--- NOTE | 2023-08-23 18:19 | XR_ITS ---
[address] [address] Patient Name: BHAVNA VILLAR MRN: [id number] date: 2000 Sex: F Assigned Patient Location: ER Current Patient Location: ED.MAIN Accession/Order Number: [id number] Exam Date: 08/23/2023 18:12 Report Date: 08/23/2023 19:03 At the request of: ABRAN STEWART Procedure: XR lumbar spine 2-3V IMAGES REVIEWED: XR lumbar spine 2-3V COMPARISON: 07/29/2023. CLINICAL INDICATION: Seizure, Back pain FINDINGS/IMPRESSION: 1. No radiographic evidence of acute osseous abnormality of the lumbar spine. 2. No spondylolisthesis or significant degenerative change. Electronically authenticated by: QUAN SMART Date: 08/23/2023 19:03
[2023-08-23 18:21] LABS: Lactate/Lactic Acid 2.2 mmol/L (0.4-2.0)
[2023-08-23] MEDS: ADACEL DIPH,PERTUSS(ACELL),TET VAC/PF 0.5 ML ADULT SYRINGE IM (18:22)
[2023-08-23] MEDS: 0.9 % SODIUM CHLORIDE 1,000 ML 1000 ML IV (18:22)
[2023-08-23] MEDS: KETOROLAC TROMETHAMINE 30 MG/ML VIAL IVP (19:29)
[2023-08-23 21:07] LABS: Lactate/Lactic Acid 0.9 mmol/L (0.4-2.0)
[2023-08-23] MEDS: LIDOCAINE HCL 2%-EPINEPHRINE 1:200,000 20 ML MDV 10 ML INJ (21:56)
[2023-08-23] MEDS: MAGNESIUM SULFATE/D5W 1 GM/100 ML PIGGYBACK IV (22:11)
[2023-08-23 22:27] LABS: Magnesium 1.7 mg/dL (1.8-2.4)
[2023-08-24] VITALS (86 sets, daily range): BP systolic 87–130; BP diastolic 46–92; PULSE 84–139; RESP 11–36; O2SAT 80–100
[2023-08-24] MEDS: LORAZEPAM 2 MG/ML 1 ML VIAL IV (00:55)
--- NOTE | 2023-08-24 00:56 | PC.NURSE ---
Patient had two witnessed seizures, post ictal state currently, patient is confused and does not recognize staff that has been caring for him all night. He is reporting a headache and asks for Imitrex. Dr Gongora is notified, order given for Imitrex 1 time.
[2023-08-24] MEDS: SUMATRIPTAN SUCCINATE 50 MG TABLET PO (02:00)
[2023-08-24 04:42] LABS: Glucometer 101 mg/dL (74-106)
[2023-08-24] MEDS: LAMOTRIGINE 100 MG TABLET PO (08:04)
[2023-08-24 08:46] LABS: Basophils Percent Auto 0.3 % (0.2-2.0); Eosinophils Percent Auto 0.1 % (0.9-7.0); Hematocrit 39.8 % (36.0-48.0); Hemoglobin 12.8 g/dL (12.0-16.0); Immature Granulocytes Abs Auto 0.02 10^3/uL (0.00-0.03); Immature Granulocytes Pct Auto 0.2 % (0.0-0.5); Lymphocytes Absolute Auto 2.1 10^3/uL (1.2-3.8); Lymphocytes Percent Auto 19.6 % (20.5-60.0); Mean Corpuscular HGB Conc 32.2 g/dL (29.9-35.2); Mean Corpuscular Hemoglobin 28.1 pg (26.7-34.0); Mean Corpuscular Volume 87.3 fL (81.0-99.0); Mean Platelet Volume 9.6 fL (9.5-13.5); Monocytes Absolute Auto 0.8 10^3/uL (0.3-0.8); Monocytes Percent Auto 7.6 % (1.7-12.0); Neutrophils Absolute Auto 7.8 10^3/uL (1.4-6.5); Neutrophils Percent Auto 72.2 % (43.0-75.0); Platelet Count 261 10^3/uL (150-450); Red Blood Count 4.56 10^6/uL (4.20-5.40); Red Cell Distribution Width 12.8 % (11.0-15.0); White Blood Count 10.8 10^3/uL (4.0-11.0)
[2023-08-24 09:02] LABS: Creatine Kinase 228 U/L (26-192)
[2023-08-24 09:03] LABS: Alanine Aminotransferase 13 U/L (14-59); Albumin Globulin Ratio 1.3; Albumin Level 4.3 g/dL (3.4-5.0); Alkaline Phosphatase 56 U/L (46-116); Anion Gap 11.8; Aspartate Amino Transferase 21 U/L (15-37); BUN Creatinine Ratio 5.6; Bilirubin Total 0.4 mg/dL (0.2-1.0); Calcium 9.1 mg/dL (8.5-10.1); Carbon Dioxide 30.8 mmol/L (21.0-32.0); Chloride 106 mmol/L (98-107); Estimated GFR (African America >60 (>=60); Estimated GFR (Non-African Ame >60 (>=60); Globulin 3.4 g/dL; Glucose 94 mg/dL (74-106); Potassium 3.6 mmol/L (3.5-5.1); Sodium 145 mmol/L (136-145); Total Protein 7.7 g/dL (6.4-8.2)
[2023-08-25 04:07] LABS: Prolactin 38.5 ng/mL (4.8-33.4)
== END 2023-08-24 11:32 | disposition home or self-care (01) ==
PROVIDERS: Emergency Medicine; Emergency Provider Internal Medicine
DX: R56.9 Unspecified convulsions (principal); F17.200 Nicotine dependence, unspecified, uncomplicated; S01.81XA Laceration without foreign body of other part of head, initial encounter; V00.131A Fall from skateboard, initial encounter; S09.8XXA Other specified injuries of head, initial encounter; Z23 Encounter for immunization
CPT/HCPCS: 12011; 36415; 70450; 71045; 72100; 72125; 80053; 80307; 80320; 82550; 82553; 82800; 83605; 83690; 83735; 83874; 84146; 84484; 85025; 90471; 90715; 93005; 96365; 96366; 96367; 96375; 96376; 99285

== ENCOUNTER 2023-11-24 16:42 | Emergency (ER) | payer OTHER, SELFPAY ==
[2023-11-24] VITALS (15 sets, daily range): BP systolic 82–122; BP diastolic 48–82; PULSE 56–78; TEMP 36.6; O2SAT 97–100; BMI 17.7
--- NOTE | 2023-11-24 16:55 | ECG_ITS ---
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
--- NOTE | 2023-11-24 16:55 | CT_ITS ---
The [address] [address] Patient Name: BHAVNA VILLAR MRN: [id number] date: 2000 Sex: F Assigned Patient Location: ER Current Patient Location: ER Accession/Order Number: [id number] Exam Date: 11/24/2023 17:14 Report Date: 11/24/2023 18:07 At the request of: ELIZA MAO Procedure: CT head/brain wo con EXAM: CT head/brain wo con, CT cervical spine wo con CLINICAL INDICATION: Seizure COMPARISON: CT head and cervical spine 08/23/2023 TECHNIQUE: Unenhanced computerized tomography of the head was performed. Automated dose reduction technique was employed. Multiple axial slices of the cervical spine were obtained without contrast and with coronal and sagittal reformatted images. FINDINGS: The ventricles are normal in size, configuration, and position for age. There is no intra- or extra-axial mass, hemorrhage, or fluid collection. No areas of abnormal mass effect or attenuation are noted. Visualized paranasal sinuses are free of mucosal disease. No depressed calvarial fracture. Reversal of normal cervical lordosis, nonspecific. Vertebral height and alignment is otherwise preserved. No acute fracture or subluxation. The atlanto occipital joint is maintained. The odontoid and lateral masses are intact. No significant degenerative changes of the cervical spine. The prevertebral soft tissues are within normal limits. The adjacent structures appear intact. The visualized soft tissues of the neck are normal. CT/CT head/brain wo con IMPRESSION: 1. No acute intracranial abnormality noted. 2. No acute fracture or subluxation of the cervical spine. Electronically authenticated by: NORMAN LEYVA Date: 11/24/2023 18:07
--- NOTE | 2023-11-24 16:55 | CT_ITS ---
The [address] [address] Patient Name: BHAVNA VILLAR MRN: [id number] date: 2000 Sex: F Assigned Patient Location: ER Current Patient Location: ER Accession/Order Number: [id number] Exam Date: 11/24/2023 17:14 Report Date: 11/24/2023 18:07 At the request of: ELIZA MAO Procedure: CT cervical spine wo con EXAM: CT head/brain wo con, CT cervical spine wo con CLINICAL INDICATION: Seizure COMPARISON: CT head and cervical spine 08/23/2023 TECHNIQUE: Unenhanced computerized tomography of the head was performed. Automated dose reduction technique was employed. Multiple axial slices of the cervical spine were obtained without contrast and with coronal and sagittal reformatted images. FINDINGS: The ventricles are normal in size, configuration, and position for age. There is no intra- or extra-axial mass, hemorrhage, or fluid collection. No areas of abnormal mass effect or attenuation are noted. Visualized paranasal sinuses are free of mucosal disease. No depressed calvarial fracture. Reversal of normal cervical lordosis, nonspecific. Vertebral height and alignment is otherwise preserved. No acute fracture or subluxation. The atlanto occipital joint is maintained. The odontoid and lateral masses are intact. No significant degenerative changes of the cervical spine. The prevertebral soft tissues are within normal limits. The adjacent structures appear intact. The visualized soft tissues of the neck are normal. CT/CT cervical spine wo con IMPRESSION: 1. No acute intracranial abnormality noted. 2. No acute fracture or subluxation of the cervical spine. Electronically authenticated by: NORMAN LEYVA Date: 11/24/2023 18:07
--- NOTE | 2023-11-24 16:58 | ED_ITS ---
HPI - Seizure General Chief Complaint: Seizure Stated Complaint: Seizure Time Seen by Provider: 11/24/23 16:55 Source: patient Mode of arrival: ambulance History of Present Illness HPI Narrative: Patient is a 23-year-old transgender male who presents to the emergency department by ambulance for the evaluation of seizure activity that was witnessed. Patient uses he/him pronouns and states that he was at a friend's house, witnessed seizure. EMS was dispatched and the patient had a witnessed seizure for EMS as well. Patient has a history of epileptic seizures, and is followed by local neurology. Patient has been seen in this emergency department for these symptoms previously. He reports pain to the neck. No other focal medical complaints at this time other than feeling tired since being started on a beta-felicity for SVT. Seizure History: Yes Related Data Home Medications ?Medication ?Instructions ?Recorded ?Confirmed lamotrigine 100 mg tablet 100 mg PO BID 01/01/23 11/24/23 (Lamictal) brivaracetam 50 mg tablet 100 mg PO Q12H 08/23/23 11/24/23 (Briviact) clobazam 10 mg tablet 10 mg PO .qhs 08/23/23 11/24/23 midazolam 5 mg/spray (0.1 mL) 1 spray intranasal PRN PRN FOR 08/24/23 11/24/23 nasal spray (Nayzilam) SEIZURES Allergies Allergy/AdvReac Type Severity Reaction Status Date / Time codeine Allergy Unknown Verified 11/24/23 16:48 Review of Systems ROS Constitutional Denies: fever or chills Ears, nose, mouth, and throat Denies: throat pain or nasal congestion Cardiovascular Denies: chest pain Respiratory Denies: shortness of breath Gastrointestinal Denies: nausea or vomiting Musculoskeletal Denies: back pain Integumentary/Breast Denies: rash Neurological Reports: seizure-like activity; Denies: headache Hematologic/Lymphatic Denies: easy bruising or easy bleeding PFSH PFSH Social History Smoking status: Current every day smoker Exam Narrative Exam Narrative: Gen.: Awake, alert, in no distress Head: Normocephalic, atraumatic ENT: Moist mucous membranes; No facial or dental injury, no posterior midline tenderness of the cervical spine Respiratory: No respiratory distress, lungs clear bilaterally Cardio: Regular rate and rhythm Gastrointestinal: Abdomen is soft, nondistended and nontender to palpation Extremities: Moves extremities equally, no injuries noted Psych: Normal mood and affect Neuro: No focal neuro deficit Skin: Warm, dry, intact Constitutional Vital Signs, click to edit/add: Last Vital Signs Temp 97.9 F 11/24/23 16:47 Pulse 69 11/24/23 18:30 Resp 21 H 11/24/23 18:30 BP 105/71 11/24/23 18:30 Pulse Ox 97 11/24/23 18:30 O2 Del Method Room Air 11/24/23 16:47 Course Vital Signs Vital signs: Vital Signs Temperature 97.9 F 11/24/23 16:47 Pulse Rate 61 11/24/23 16:47 Respiratory Rate 16 11/24/23 16:47 Blood Pressure 114/71 11/24/23 16:47 Pulse Oximetry 100 11/24/23 16:47 Oxygen Delivery Method Room Air 11/24/23 16:47 Temperature 97.9 F 11/24/23 16:47 Pulse Rate 69 11/24/23 18:30 Respiratory Rate 21 H 11/24/23 18:30 Blood Pressure 105/71 11/24/23 18:30 Pulse Oximetry 97 11/24/23 18:30 Oxygen Delivery Method Room Air 11/24/23 16:47 MDM - Seizure MDM Narrative Medical decision making narrative: Patient given IV fluids and Dilantin, CT of the head and C-spine are unremarkable and and labs are unremarkable as well. Patient reevaluated by attending physician and will be discharged home to follow-up with neurology. Patient encouraged to remain compliant with home medications and return to the ER if symptoms change or worsen. After the patient was reevaluated by attending physician, the patient was discharged and on ambulating out of the emergency department with his father, the patient apparently became profoundly weak with no additional seizure activity and was brought back to the emergency department. Placed back on cardiac monitoring and found to have stable vital signs, IV was reestablished. At this time if the patient cannot be discharged home due to recurrent seizures and weakness, the patient will require transfer to a tertiary care facility. Patient's father would like the patient transferred to [facility]. Patient at this time states he feels out of it . I discussed the patient with his regular neurologist, nurse practitioner Anastasia Gonzáles. She states the patient was recently admitted to [facility] He has a longstanding history of seizure disorder. Spoke with Dr. Hwang at [facility] for neurology and she excepted the patient for tamar edouard. Patient will be excepted to the neurology unit. Stable at this time of transfer. Critical care time 35 minutes. Medical Records Attestation: I reviewed the patient's medical records. Lab Data Attestation: I reviewed the patient's lab results. Labs: Lab Results 11/24/23 Range/Units 17:09 WBC 6.6 (4.0-11.0) 10^3/uL RBC 4.33 (4.20-5.40) 10^6/uL Hgb 12.2 (12.0-16.0) g/dL Hct 38.2 (36.0-48.0) % MCV 88.2 (81.0-99.0) fL MCH 28.2 (26.7-34.0) pg MCHC 31.9 (29.9-35.2) g/dL RDW 13.1 (11.0-15.0) % Plt Count 237 (150-450) 10^3/uL MPV 9.7 (9.5-13.5) fL Neut % (Auto) 57.6 (43.0-75.0) % Lymph % (Auto) 33.7 (20.5-60.0) % [place] % (Auto) 7.9 (1.7-12.0) % Eos % (Auto) 0.3 L (0.9-7.0) % Baso % (Auto) 0.3 (0.2-2.0) % Neut # (Auto) 3.8 (1.4-6.5) 10^3/uL Lymph # (Auto) 2.2 (1.2-3.8) 10^3/uL [place] # (Auto) 0.5 (0.3-0.8) 10^3/uL Eos # (Auto) 0.0 (0.0-0.7) 10^3/uL Baso # (Auto) 0.0 (0.0-0.1) 10^3/uL Abs Immat Gran (auto) 0.01 (0.00-0.03) 10^3/uL Imm/Tot Granulo (auto) 0.2 (0.0-0.5) % Sodium 141 (136-145) mmol/L Potassium 3.8 (3.5-5.1) mmol/L Chloride 104 (98-107) mmol/L Carbon Dioxide 27.6 (21.0-32.0) mmol/L Anion Gap 13.2 BUN 18.0 (7.0-18.0) mg/dL Creatinine 1.05 H (0.55-1.02) mg/dL Est GFR ( Amer) >60 (>=60) Est GFR (Non-Af Amer) >60 (>=60) BUN/Creatinine Ratio 17.1 Glucose 91 (74-106) mg/dL Lactate 1.4 (0.4-2.0) mmol/L Calcium 8.9 (8.5-10.1) mg/dL Magnesium 2.1 (1.8-2.4) mg/dL Total Bilirubin 0.5 (0.2-1.0) mg/dL AST 11 L (15-37) U/L ALT 11 L (14-59) U/L Alkaline Phosphatase 54 (46-116) U/L Total Protein 7.7 (6.4-8.2) g/dL Albumin 4.7 (3.4-5.0) g/dL Globulin 3.0 g/dL Albumin/Globulin Ratio 1.[address] scan - head: Attestation: I have reviewed the pertinent imaging results. Radiologist's impression: ITS Impressions Cervical Spine CT 11/24/23 16:55 IMPRESSION: 1. No acute intracranial abnormality noted. 2. No acute fracture or subluxation of the cervical spine. Electronically authenticated by: NORMAN LEYVA Date: 11/24/2023 18:[address] 11/24/23 16:55 IMPRESSION: 1. No acute intracranial abnormality noted. 2. No acute fracture or subluxation of the cervical spine. Electronically authenticated by: NORMAN [employer] Date: 11/24/2023 18:07 ECG Data Attestation: I personally reviewed and interpreted this ECG as follows: (Normal sinus rhythm at a rate of 55, no acute ST elevation or ectopy. EKG reviewed by attending physician) Discharge Plan Discharge Stand Alone Forms: Portal Instructions Chief Complaint: Seizure Clinical Impression: Recurrent seizures [facility] Time of Disposition Decision: 20:49 Discharge Location: [facility] Condition: Good Mode of Transportation: EMS Prescriptions / Home Meds: No Action Briviact 50 mg tablet 100 mg PO Q12H clobazam 10 mg tablet 10 mg PO .qhs Nayzilam 5 mg/spray (0.1 mL) spray,non-aerosol 1 spray INTRANASAL PRN PRN (Reason: FOR SEIZURES) lamotrigine [Lamictal] 100 mg tablet 100 mg PO BID Print Language: Divehi Instructions: Recurrent Seizures in Adults (ED) Referrals: ADEN GONZÁLES [Physician] - As soon as possible Physician,Non-Staff, [Primary Care Provider] - 1 week
[2023-11-24 17:20] LABS: Basophils Percent Auto 0.3 % (0.2-2.0); Eosinophils Percent Auto 0.3 % (0.9-7.0); Hematocrit 38.2 % (36.0-48.0); Hemoglobin 12.2 g/dL (12.0-16.0); Immature Granulocytes Abs Auto 0.01 10^3/uL (0.00-0.03); Immature Granulocytes Pct Auto 0.2 % (0.0-0.5); Lymphocytes Absolute Auto 2.2 10^3/uL (1.2-3.8); Lymphocytes Percent Auto 33.7 % (20.5-60.0); Mean Corpuscular HGB Conc 31.9 g/dL (29.9-35.2); Mean Corpuscular Hemoglobin 28.2 pg (26.7-34.0); Mean Corpuscular Volume 88.2 fL (81.0-99.0); Mean Platelet Volume 9.7 fL (9.5-13.5); Monocytes Absolute Auto 0.5 10^3/uL (0.3-0.8); Monocytes Percent Auto 7.9 % (1.7-12.0); Neutrophils Absolute Auto 3.8 10^3/uL (1.4-6.5); Neutrophils Percent Auto 57.6 % (43.0-75.0); Platelet Count 237 10^3/uL (150-450); Red Blood Count 4.33 10^6/uL (4.20-5.40); Red Cell Distribution Width 13.1 % (11.0-15.0); White Blood Count 6.6 10^3/uL (4.0-11.0)
[2023-11-24] MEDS: 0.9 % SODIUM CHLORIDE 1,000 ML 999 ML IV (17:31)
[2023-11-24 17:57] LABS: Alanine Aminotransferase 11 U/L (14-59); Albumin Globulin Ratio 1.6; Albumin Level 4.7 g/dL (3.4-5.0); Alkaline Phosphatase 54 U/L (46-116); Anion Gap 13.2; Aspartate Amino Transferase 11 U/L (15-37); BUN Creatinine Ratio 17.1; Bilirubin Total 0.5 mg/dL (0.2-1.0); Calcium 8.9 mg/dL (8.5-10.1); Carbon Dioxide 27.6 mmol/L (21.0-32.0); Chloride 104 mmol/L (98-107); Estimated GFR (African America >60 (>=60); Estimated GFR (Non-African Ame >60 (>=60); Glucose 91 mg/dL (74-106); Magnesium 2.1 mg/dL (1.8-2.4); Potassium 3.8 mmol/L (3.5-5.1); Sodium 141 mmol/L (136-145); Total Protein 7.7 g/dL (6.4-8.2)
[2023-11-24 18:00] LABS: Lactate/Lactic Acid 1.4 mmol/L (0.4-2.0)
[2023-11-24] MEDS: PHENYTOIN SODIUM 1,000 MG in 0.9 % SODIUM CHLORIDE 100 ML 240 MG IV (18:18)
--- NOTE | 2023-11-24 19:05 | PC.NURSE ---
Discharge instructions reviewed with patient with verbal understanding received. Patient up to leave and becomes dizzy and having difficulty walking. Patient taken back to bed and census enumerator placed on patient along with VS obtained. DAWSON Bobby notified.
[2023-11-28 17:09] LABS: Lamotrigine (Lamictal), Serum 6.6 ug/mL (2.0-20.0)
== END 2023-11-24 21:35 | disposition short-term general hospital (02) ==
PROVIDERS: Physician Assistant; Emergency Provider Emergency Medicine
DX: G40.909 Epilepsy, unspecified, not intractable, without status epilepticus (principal); F64.0 Transsexualism
CPT/HCPCS: 36415; 70450; 72125; 80053; 80175; 83605; 83735; 85025; 93005; 96365; 99285

== ENCOUNTER 2023-12-17 13:05 | Emergency (ER) | payer OTHER, SELFPAY ==
[2023-12-17 13:09] VITALS: BP 103/78; PULSE 62; TEMP 36.7; O2SAT 98; BMI 17.2
--- OUTSIDE RECORDS SUMMARY | 2023-12-17 13:11 | XMS_ITS | CCD ---
Author Organization [facility] Care Team Providers Care Mud Jack Operator Name Role Phone ALEXA SAHA Admitting Unavailable DEBORAHEGALEXA CHUN Attending Unavailable HOUSE, ERIC Primary Care Unavailable SELF, REFERRED Referring Unavailable HOUSE, SR ERIC Boland Primary Care Unavailable JUANJOSE JIANG Attending Unavailabl e DION WHITE Attending Unavailable HOUSE, ERIC Boland Referring Unavailable HOUSE, ERIC Boland Primary Care Unavailable House, DO Eric Primary Care Provider DO Bobby Gallagher Emergency Provider Unavai DO Tommy Hernandez Emergency Provider [phone] DO Luz Fiore Emergency Provider [phone] DO Roberto Whittaker Emergency Provider [phone] DO Tommy Bowen Emergency Provider DO Eric French Primary Care Provider [phone] DO [place] Emergency Provider [phone] MD Mario Alberto Jose Emergency Provider DO Luz Fiore Emergency Provider [place] Eric Sams Primary Care Provider DO Tommy Bowen Emergency Provider DO Eric French Primary Care Provider [phone] DO [place] Emergency Provider [phone] MD Mario Alberto Jose Emergency Provider DO Luz Fiore Emergency Provider [phone] DO [place] Emergency Provider [phone] DO Eric French Primary Care Provider [phone] Leslie DO Attila Anderson Emergency Provider [phone] [place], DO Reyes Primary Care Provider [phone] Panfilo DO Roberto Espinosa Emergency Provider House, DO Reyes Primary Care Provider Nelson, DO Aiken J Emergency Provider Unavailab le Panfilo DO Mejia A Emergency Provider ZEYAD Bowen [facility] Federica E Emergency Provider [phone] HOUSE, DR REYES Primary Care Unavailable TAMIR, DEO Admitting Unavailable TAMIR, DEO Attending Unavailable TAMIR, DEO Consulting Unavailable GILLIAN, DR REYES Primary Care Unavailable RADHA, DR MARGARITA Frankel Consulting Unavailable RADHA, DR MARGARITA Frankel Admitting Unavailable RADHA, DR MARGARITA Frankel Attending Unavailable GILLIAN, DR REYES Primary Care Unavailable TAMIR, DEO Admitting Unavailable TAMIR, DEO Attending Unavailable TAMIR, DEO Consulting Unavailable DOUGLAS, FRED Consulting Unavailable GILLIAN, DR REYES Primary Care Unavailable TAMIR, DEO Admitting Unavailable TAMIR, DEO Attending Unavailable TAMIR, DEO Consulting Unavailable SOPHIE ., COLTEN Consulting Unavailable GILLIAN, DR REYES Primary Care Unavailable PAY ., DR OSULLIVAN Admitting Unavailable PAY ., DR OSULLIVAN Attending Unavailable PAY ., DR OSULLIVAN Consulting Unavailable DERROW, COSMO Consulting Unavailable NEWFIELDS, DR REYES Primary Care Unavailable MARKER ., DR CASTRO Consulting Unavailable MARKER ., DR CASTRO Admdevang Unavailable MARKER ., DR CASTRO Attending Unavailable DEBBIE BRITT Consulting Unavailable ARVIND, NAHUN Consulting Unavailable GILLIAN, DR REYES Primary Care Unavailable SOPHIE ., COLTEN Admitting Unavailable SOPHIE ., COLTEN Attending Unavailable RADHA, DR MARGARITA Frankel Consulting Unavailable SOPHIE ., COLTEN Consulting Unavailable LO TUTTLE Consulting Unavailable [place] Sr., Eric BUCKLEY Primary Care Provider NEWFIELDS ERIC LYONS Primary Care Unavailable DAVIDSON ORTEZ Attending Unavailable [place], DO Reyes Primary Care Provider DO Luz Fiore Emergency Provider ZEYAD Rivera Emergency Provider [place], DO Reyes Primary Care Provider [phone] DO Luz Fiore Emergency Provider ZEYAD Rivera Emergency Provider [phone] MD Mario Alberto Jose Emergency Provider NON STAFF Primary Care Provider Unavailabl e House DO, Eric P Primary Care Provider Eric French MD P Primary Care Provider HOUSE, ERIC P Primary Care Unavailable NATALI, JAVIER Attending Unavailable NATALI, JAVIER Attending Unavailable NATALI, JAVIER Referring Unavailable HOUSE, ERIC P Primary Care Unavailable NATALI, AJVIER Attending Unavailable NATALI, JAVIER Referring Unavailable HOUSE, ERIC P Primary Care Unavailable SHAWNEE CHIRINOS Attending Unavailable SHAWNEE CHIRINOS Referring Unavailable HOUSE, ERIC P Primary Care Unavailable JESUS, ENRIQUETA I Referring Unavailable HOUSE, ERIC P Primary Care Unavailable TSE, ENRIQUETA I Referring Unavailable HOUSE, ERIC P Primary Care Unavailable DARYA, NETTE Attending Unavailable DARYA, NETTE Referring Unavailable HOUSE, ERIC P Primary Care Unavailable HOUSE, ERIC P Referring Unavailable HOUSE, ERIC P Primary Care Unavailable JESUS, ENRIQUETA I Referring Unavailable HOUSE, ERIC P Primary Care Unavailable TSE, ENRIQUETA I Referring Unavailable HOUSE, ERIC P Primary Care Unavailable HOUSE, ERIC P Primary Care Unavailable GUERO TORRES Attending Unavailable DEBBIE MCKEON Referring Unavailable HOUSE, ERIC P Primary Care Unavailable JESUS, ENRIQUETA I Attending Unavailable HOUSE, ERIC P Referring Unavailable HOUSE, ERIC P Primary Care Unavailable HOUSE, ERIC P Referring Unavailable HOUSE, ERIC P Primary Care Unavailable DARYA, NETTE Pitt Attending Unavailable JESUS, ENRIQUETA I Referring Unavailable HOUSE, ERIC P Primary Care Unavailable DARYA, NETTE L Attending Unavailable HOUSE, ERIC P Referring Unavailable HOUSE, ERIC P Primary Care Unavailable SARAH RICE Attending Unavailable JESUS, ENRIQUETA I Referring Unavailable HOUSE, ERIC P Primary Care Unavailable SARAH RICE Attending Unavailable HOUSE, ERIC P Referring Unavailable HOUSE, ERIC P Primary Care Unavailable HOUSE, ERIC P Referring Unavailable HOUSE, ERIC P Primary Care Unavailable ÁNGEL POPE Admitting Unavailable ÁNGEL POPE Attending Unavailable DAVID RASMUSSEN Referring Unavailabl e HOUSE, ERIC P Primary Care Unavailable CANDISSHAWNEE WOLFE Referring Unavailable HOUSE, ERIC P Primary Care Unavailable LINSEY PAGAN Referring Unavai lable HOUSE, ERIC P Primary Care Unavailable PROLOGO-JUÁREZ, LINSEY Referring Unavai lable HOUSE, ERIC P Primary Care Unavailable PROLOGO-JUÁREZ, LINSEY Referring Unavai lable HOUSE, ERIC P Primary Care Unavailable HASROSALINE GAR Referring Unavailable HOUSE, ERIC P Primary Care Unavailable ENRIQUETA TSE I Attending Unavailable HOUSE, ERIC P Referring Unavailable HOUSE, ERIC P Primary Care Unavailable HOUSE, ERIC P Referring Unavailable HOUSE, ERIC P Primary Care Unavailable ENRIQUETA TSE I Referring Unavailable HOUSE, ERIC P Primary Care Unavailable SARAH RICE Referring Unavailable HOUSE, ERIC P Primary Care Unavailable DEBBIE MCKEON Admitting Unavailable DEBBIE MCKEON Attending Unavailable FUMCatina, DEBBIE Waldron Referring Unavailable HOUSE, ERIC P Primary Care Unavailable DEBBIE MCKEON Attending Unavailable DEBBIE MCKEON Referring Unavailable HOUSE, ERIC P Primary Care Unavailable BEATA DODSON Admitting Unavailab jitendra DODSON, BEATA JIMENES Attending Unavailab AUDREY Castellano Referring Unavailable HOUSE, ERIC P Primary Care Unavailable TEJ LIZARRAGA Unavailable JUDE PARRA Referring Unavailable HOUSE, ERIC P Primary Care Unavailable AARON ESPARZA Admitting Unavailable AARON ESPARZA Attending Unavailable DEO GARNETT Referring Unavailable NATALY, YOLIE Admitting Unavailable NATALY, YOLIE Attending Unavailable RITAREA Referring Unavailable ISAIASAARON Dominique Referring Unavailable MARISOL, SWAPNA Attending Unavailable MARISOL, SWAPNA Attending Unavailable BARAZILUIS FERNANDO Attending Unavailable MARISOL, SWAPNA Referring Unavailable MARISOL, SWAPNA Referring Unavailable RITA, REA Referring Unavailable RITA, REA Referring Unavailable RITA, REA Referring Unavailable HOUSE SR, ERIC P Primary Care Unavailable EMILIA RADHA REMY Referring Unavailabl e EMILIA KHALEK, RADHA Referring Unavailabl e HOUSE SR, ERIC P Primary Care Unavailable HOUSE SR, ERIC P Primary Care Unavailable AMAN TAPIA Attending Unavailable EMILIA GEETAKRADHA Referring Unavailabl e HOUSE SR, ERIC P Primary Care Unavailable EMILIA KHALEK, RADHA Referring Unavailabl e HOUSE SR, ERIC P Primary Care Unavailable Milton Rivera Attending Unavailable Milton Rivera Admitting Unavailable House, Eric Primary Care Unavailable Mario Alberto Jose Attending Unavailable Mario Alberto Jose Admitting Unavailable NON STAFF Primary Care Unavailable Luz Fiore Attending Unavailable Luz Fiore Admitting Unavailable House, Eric Primary Care Unavailable NON STAFF Primary Care Unavailable Fiore, Luz Attending Unavailable Fiore, Luz Admitting Unavailable HOUSE, ERIC P Primary Care Unavailable HOUSE, ERIC P Attending Unavailable HOUSE, ERIC P Primary Care Unavailable HOUSE, ERIC P Attending Unavailable HOUSE, ERIC P Primary Care Unavailable HOUSE, ERIC P Attending Unavailable HOUSE, ERIC P Admitting Unavailable HOUSE, ERIC P Primary Care Unavailable HOUSE, ERIC P Attending Unavailable HOUSE, ERIC P Primary Care Unavailable HOUSE, ERIC P Attending Unavailable Allergies Allergy Classification Reported Allergen(s) Allergy Type Date of Onset Reaction(s) Facility (20 sources) Codeine; Translations: [CODEINE] Drug Allergy 8 Hives [facility] Repository (17 sources) Codeine Drug Allergy 8 Hives, Itching [facility] Work Phone: (1 source) Codeine Drug Allergy 3 [facility] Repository Medications Current Medications Medication Drug Class(es) Dates Sig (Normalized) Sig (Original) biotin 10 mg oral capsule (2 sources) biotin 10 MG capsule Take 100 mg by mouth in the morning. 0 Active brivaracetam 50 mg oral tablet (13 sources) Start: 05-16-2023 End: 05-15-2024 take 1 tablet by mouth in the morning brivaracetam (Briviact) 50 MG tablet tablet Indications: Intractable complex partial epilepsy (CMS/HCC) , Focal epilepsy with impairment of consciousness, intractable (CMS/HCC) , Epilepsy, 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CMS/HCC) Take 1 tablet (50 mg) by mouth in the morning and 1 tablet (50 mg) before bedtime. 60 tablet 2 05/16/2023 05/15/2024 Active take 2 tablets by mo [facility] in the morning, then take 2 tablets by mouth at bedtime BRIVIACT 50 mg tablet Take 2 tablets (100 mg total) by mouth in the morning and 2 tablets (100 mg total) before bedtime. 0 Active cefuroxime 250 mg oral tablet (10 sources) Cephalosporin Antibacterial Start: 05-24-2023 take 1 tablet by mouth once daily cefuroxime (Ceftin) 250 MG tablet Indications: Acne vulgaris Take 1 tablet, by mouth, once daily, 30 days 30 tablet 2 05/24/2023 Active Cenobamate (Xcopri Titration Pack) 12.5 mg [...] Daily at bedtime March 11, 2023 12:00am ciclopirox 10 mg/ml medicated shampoo (2 sources) Start: 05-24-2023 Ciclopirox 1 % shampoo Indications: Other seborrheic dermatitis Lather on wet hair, leave on 5 min, rinse 2-3 x week, 30 day supply 120 mL 11 05/24/2023 Active clindamycin 10 mg/ml topical lotion (2 sources) Lincosamide Antibacterial Start: 05-24-2023 clindamycin (Cleocin T) 1 % lotion Indications: Acne vulgaris Apply thin layer to face, once daily in the morning, 30 day supply 60 mL 2 05/24/2023 Active cloBAZam 10 mg oral tablet (15 sources) Benzodiazepine Start: 08-10-2023 End: 11-08-2023 take 1 tablet by mouth at bedtime cloBAZam (Onfi) 10 MG tablet Indications: Intractable complex partial epilepsy (CMS/HCC) Take 1 tablet (10 mg) by mouth at bedtime 30 tablet 2 08/10/2023 11/08/2023 Active Start: 04-12-2023 take 1 tablet by ketan th once daily Clobazam (Onfi) 10 mg Tablet Active 10 MG PO Daily April 11, 2023 11:00pm Start: 04-06-2023 End: 08-10-2023 take 5 mg by mouth at bedtime cloBAZam (Onfi) 10 MG ta blet Take 5 mg by mouth at bedtime 0 04/06/2023 08/10/2023 Discontinued (Reorder) take 4 mL by mouth i n the morning cloBAZam (ONFI) 2.5 mg/mL suspension Take 4 mL (10 mg total) by mouth in the morning. 2000. 0 Active take 8 mL by mouth i n the morning cloBAZam (ONFI) 2.5 mg/mL suspension Take 8 mL (20 mg total) by mouth in the morning and 8 mL (20 mg total) before bedtime. 0 Active cyproheptadine hydrochloride 4 mg oral tablet (2 sources) Start: 04-14-2023 End: 08-10-2023 take 0.5 tablet by mouth at bedtime cyproheptadine (Periactin) 4 MG tablet Indications: Migraine without aura and without status migrainosus, not intractable (CMS/HCC) , Insomnia due to medical condition , Allergy, sequela Take 0.5 tablets (2 mg) by mouth at bedtime. 45 tablet 3 04/14/2023 08/10/2023 Discontinued docusate sodium 100 mg oral capsule (3 sources) Start: 11-24-2021 take 1 capsule by mouth in the morning, then take 1 capsule by mouth at bedtime docusate sodium (COLACE) 100 mg capsule Take 1 capsule (100 mg total) by mouth in the morning and 1 capsule (100 mg total) before bedtime. 14 capsule 0 11/24/2021 Active ibuprofen 600 mg oral tablet (5 sources) Nonsteroidal Anti-inflammatory Drug Start: 09-20-2023 take 1 tablet by mouth every six hours as needed for pain ibuprofen (MOTRIN) 600 mg tablet Indications: Muscle spasm , Chronic bilateral low back pain, unspecified whether sciatica present Take 1 tablet (600 mg total) by mouth every 6 (six) hours as needed for pain. 30 tablet 0 09/20/2023 Active Start: 05-12-2023 take 1 tablet by ketan th three times daily as needed ibuprofen 800 MG tablet Take 800 mg by mouth 3 (three) times a day as needed. 0 05/12/2023 Active ketorolac tromethamine 10 mg oral tablet (3 sources) Nonsteroidal Anti-inflammatory Drug, Cyclooxygenase Inhibitor Start: 11-13-2021 take 1 tablet by mouth every six hours as needed for pain ketorolac (TORADOL) 10 mg tablet Take 1 tablet (10 mg total) by mouth every 6 (six) hours as needed for pain. 20 tablet 0 11/13/2021 Active lamoTRIgine 100 mg oral tablet (20 sources) Mood Stabilizer, Anti-epileptic Agent Start: 03-23-2023 End: 04-05-2024 take 1 tablet by mouth in the morning lamoTRIgine (LaMICtal) 100 MG tablet Indications: Epilepsy, 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CMS/HCC) Take 1 tablet (100 mg) by mouth in the morning and 1 tablet (100 mg) before bedtime. 60 tablet 11 04/06/2023 04/05/2024 Active Start: 07-27-2022 End: 05-12-2023 take 4 tablets by mouth twice daily Lamotrigine (Lamictal) 25 mg Tablet Discontinued 100 MG PO Twice daily July 27, 2022 12:00am May 12, 2023 1:30pm Start: 07-27-2022 take 4 tablets by mo uth once daily in the morning Lamotrigine (Lamictal) [...] 2021 11:46am February 25, 2022 10:47am take 1.5 tablets by mouth in the morning, then take 1.5 tablets by mouth at bedtime lamoTRIgine (LaMICtal) 100 mg tablet Take 1.5 tablets (150 mg total) by mouth in the morning and 1.5 tablets (150 mg total) before bedtime. 0 Active take 4 tablets by mo uth twice daily lamoTRIgine (LAMICTAL) 25 mg tablet Take 100 mg by mouth twice daily. 0 Active Comment on above: Take 100 mg by mouth twice daily. lidocaine 0.05 mg/mg medicated patch (3 sources) Antiarrhythmic, Amide Local Anesthetic Start: lidocaine (Lidoderm) 5 % patch metoclopramide 10 mg oral tablet (3 sources) Dopamine-2 Receptor Antagonist Start: 022 take 1 tablet by mouth every eight hours as needed metoclopramide (REGLAN) 10 mg tablet Take 10 mg by mouth every 8 (eight) hours as needed. 0 10/16/2021 Active midazolam 50 mg/ml nasal spray (16 sources) Benzodiazepine Start: Midazolam (Nayzilam) 5 MG/0.1ML solution Indications: Intractable complex partial epilepsy (CMS/HCC) Administer 1 spray into affected nostril(s) if needed (1 spray 5 mg in one nostril x1 may repeat in opposite nostril in 10 min) 6 each 2 08/10/2023 Active Start: 08-10-2023 Midazolam (Nay zilam) 5 MG/0.1ML solution Indications: Intractable complex partial epilepsy (CMS/HCC) Administer 1 spray into affected nostril(s) if needed (1 spray 5 mg in one nostril x1 may repeat in opposite nostril in 10 min) 6 each 2 08/10/2023 Active Start: 02-06-2023 Midazolam (NAY ZILAM) 5 MG/0.1ML SOLN Indications: Seizure (HCC) 5 mg by Nasal route 1 (one) time if needed (for seizure. May repeat x1 if no response after 10 minutes.) Max Daily Amount: 5 mg 2 each 0 02/06/2023 Active Start: 02-06-2023 midazolam (NAY ZILAM) 5 mg/spray (0.1 mL) spray,non-aerosol Administer 5 mg into each nostril as needed (seizure activity). 0 02/06/2023 Active Midazolam (Nayzilam) 5 mg/sp ray (0.1 mL) spray,non-aerosol (2 sources) Start: 03-11-2023 Midazolam (Nay zilam) 5 mg/spray (0.1 mL) spray,non-aerosol Active 1 SPRAY INTRANASAL As Directed March 10, 2023 11:00pm Start: 03-11-2023 Midazolam (Nay zilam) 5 mg/spray (0.1 mL) spray,non-aerosol Active 1 SPRAY INTRANASAL As Directed [place] 15th, 2023 12:00am midodrine hydrochloride 5 mg oral tablet (15 sources) alpha-Adrenergic Agonist Start: 03-11-2023 take 1 tablet by mouth in the morning, then take 1 tablet by mouth in the evening, then take 1 tablet by mouth at bedtime midodrine (Proamatine) 5 MG tablet Take 5 mg by mouth in the morning and 5 mg in the evening and 5 mg before bedtime. 0 06/09/2023 Active 1 ml testosterone cypionate 200 mg/ml injection (20 sources) Androgen Start: 08-17-2021 End: 08-17-2025 inject 100 mg by subcutaneous injection every other week testosterone cypionate (Depo-Testosterone ) 200 MG/ML injection INJECT 100mg (0.5ml) SUBCUTANEOUSLY EVERY 2 (TWO) weeks (this is a dose increase. to be given SUBCUTANEOUSLY not INTRAMUSCULARLY) 0 08/17/2021 08/10/2023 Discontinued Start: 12-04-2019 End: 12-04-2019 Testosterone Discontinued MG December 03, 2019 11:00pm December 04, 2019 2:36pm Start: 12-04-2019 End: 03-31-2021 inject 50 mg by intramuscular injection every other week Testosterone Cypionate Discontinued 50 MG IM EVERY 2 WEEKS December 03, 2019 11:00pm March 31, 2021 10:40am Comment on above: INJECT 100 MG (0.5 m l) SQ Q2wks tiZANidine 2 mg oral tablet (2 sources) Central alpha-2 Adrenergic Agonist Start: 4 take 1 tablet by mouth every eight hours as needed for muscle spasms tiZANidine (ZANAFLEX) 2 mg tablet Indications: Muscle spasm , Chronic bilateral low back pain, unspecified whether sciatica present Take 1 tablet (2 mg total) by mouth every 8 (eight) hours as needed for muscle spasms. 30 tablet 0 09/20/2023 Active tretinoin 0.25 mg/ml topical cream (2 sources) Retinoid Start: 3 End: 4 tretinoin (Retin-A) 0.025 % cream Indications: Acne vulgaris Apply a pea size amount topically to face, once daily at evening/night time, 30 day supply 20 g 2 05/24/2023 08/10/2023 Discontinued Completed/Discontinued Medications Medication Drug Class(es) Dates Sig [...] Discontinued 500 MG PO Twice daily 14 August 07, 2021 12:00am September 09, 2021 11:35am etonogestrel 68 mg drug implant (2 sources) Progestin Start: 09-19-2023 End: 09-19-2023 etonogestreL (NEXPLANON) implant 68 mg Start: 09-19-2023 End: 09-19-2023 etonogestreL (NEXPLANON) imp lant 68 mg lacosamide 100 mg oral tablet (13 sources) [...] Start: 01-03-2021 take 1 tablet by ketan th twice daily levETIRAcetam (KEPPRA) 750 mg tablet [...] HR. metFORMIN hydrochloride 500 mg oral tablet (19 sources) Biguanide Start: 08-18-2022 End: 09-13-2022 take [...] oral capsule (3 sources) Nitrofuran Antibacterial Start: End: take 1 capsule by mouth twice daily at mealtime Nitrofurantoin Monohyd/M-Cryst (Macrobid) 100 mg capsule Discontinued 100 MG PO Twice daily 10 5 August 30, 2022 12:00am September 13, 2022 9:45am must administer with a meal/food 2 ml ondansetron 2 mg/ml injection (13 sources) Serotonin-3 Receptor Antagonist Start: End: ondansetron (ZOFRAN) injection 4 mg Start: 09-27-2023 take 1 tablet by ketan th once daily as needed for nausea ondansetron (ZOFRAN) 4 mg tablet Take 1 tablet (4 mg total) by mouth daily as needed for nausea or vomiting. 30 tablet 1 09/27/2023 Active Start: 10-13-2021 End: 09-19-2023 take 1 tablet by mouth every eight hours as needed for nausea ondansetron ODT (ZOFRAN ODT) 4 mg disintegrating tablet Dissolve 1 tablet (4 mg total) on tongue every 8 (eight) hours as needed for nausea for up to 10 doses. 10 tablet 0 10/13/2021 09/19/2023 Discontinued phenytoin sodium 100 mg extended release oral capsule (4 sources) Anti-epileptic Agent Start: 11-03-2020 take 3 capsules by mouth once daily phenytoin ER (DILANTIN) 100 mg ER capsule Take 300 mg by mouth once daily. 0 11/03/2020 Active phenytoin (NITIN TIN) 100 mg ER capsule Comment on above: Take 300 mg by mouth once daily. phenytoin (DILANTIN) 1,000 mg in sodium chloride 0.9 % 100 mL IVPB (loading dose) (1 source) Start: 12-01-19 End: 12-01-19 phenytoin (DILANTIN) 1,000 mg in sodium chloride 0.9 % 100 mL IVPB (loading dose) promethazine hydrochloride 25 mg rectal suppository (8 sources) Phenothiazine Start: 10-17-19 End: 09-19-19 24 promethazine (PHENERGAN) 25 mg suppository INSERT 1 (ONE) SUPPOSITORY RECTALLY EVERY 6 HOURS NEEDED 0 10/16/2021 09/19/2023 Discontinued propranolol hydrochloride 10 mg oral tablet (13 sources) beta-Adrenergic Eleonora Start: 02-21-20 take 1 tablet by mouth three times [...] 03, 2019 11:00pm December 04, 2019 2:36pm 50 ml sodium chloride 9 mg/ml injection (1 source) Start: 12-01-2023 End: 12-01-2023 sodium chloride 0.9 % bolus 1,000 mL sucralfate 1000 mg oral tablet (12 sources) Aluminum Complex Start: 06-02-2021 End: 06-29-2021 take 1 tablet by mouth twice daily Sucralfate (Carafate) 1 gram tablet Discontinued 1 GM PO Twice daily 03 31June 02, 2021 1:08pm June 29, 2021 11:25am SUMAtriptan 100 mg oral tablet (10 sources) Serotonin-1b and Serotonin-1d Receptor Agonist Start: 04-14-2023 End: 04-13-2024 SUMAtriptan (IMITREX) 100 mg tablet Take 1 tablet (100 mg total) by mouth. 0 04/14/2023 09/19/2023 Discontinued Problems Active Problems Problem Classification Problem Date Documented Date Episodic/Chronic Abdominal pain (5 sources) Right lower quadrant pain; Translations: [Flank pain] Onset: 10-16-2021 Episodic Anxiety disorders (13 sources) Social phobia; Translations: [Social phobia, unspecified] Onset: 07-15-2017 12-05-2019 Chronic Calculus of urinary tract (20 sources) Personal history of urinary calculi; Translations: [Calculus of kidney] Onset: 10-15-2021 05-12-2023 Episodic Contraceptive and procreative management (3 sources) Patient encounter status; Translations: [Encounter for initial prescription of implantable subdermal contraceptive] Onset: 09-19-2023 09-19-2023 Episodic Diabetes mellitus without complication (1 source) Type 2 diabetes mellitus without complications; Translations: [TYPE 2 DM WITHOUT COMPLICATIONS] Onset: 09-27-2022 Chronic Epilepsy; convulsions (20 sources) Other generalized epilepsy and epileptic syndromes, not intractable, without status epilepticus; Translations: [Epilepsy, unspecified, not intractable, without status epilepticus] Onset: 07-20-2017 Chronic Essential hypertension (2 sources) Essential (primary) hypertension; Translations: [Essential (primary) hypertension] Onset: 12-09-2023 Chronic Fluid and electrolyte disorders (13 sources) Acute hypokalemia; Translations: [Hypokalemia] Onset: 10-20-2021 07-10-2021 Episodic Genitourinary symptoms and ill-defined conditions (20 sources) Blood in urine; Translations: [Hematuria, unspecified] Onset: 07-28-2023 07-10-2021 Episodic Headache; including migraine (4 sources) Migraine without aura, not refractory ; Translations: [Migraine without aura, not intractable, without status migrainosus] Onset: 04-14-2023 08-10-2023 Chronic Menstrual disorders (1 source) Irregular periods; Translations: [Irregular menstruation, unspecified] 09-13-2023 Chronic Miscellaneous mental health disorders (20 sources) Dissociative [...] pain] Onset: 01-03-2022 09-28-2021 Episodic Nutritional deficiencies (3 sources) Deficiency of macronutrients; Translations: [Mild protein-calorie malnutrition] Onset: 12-07-2019 12-11-2019 Chronic Other aftercare (1 source) Other retirement (current) drug therapy; Translations: [OTH NEONATAL NURSE CURRENT DRUG THERAPY] Onset: 09-27-2022 Episodic Other aftercare (1 source) intermediate (current) use of oral hypoglycemic drugs; Translations: [NEONATAL NURSE USE ORAL HYPOGLYCEMIC DX] Onset: 09-27-2022 Episodic Other connective tissue disease (4 sources) Spasm of cervical paraspinous muscle; Translations: [Other muscle spasm] Onset: 08-10-2023 08-10-2023 Episodic Other connective tissue disease (1 source) Spasm; Translations: [Other muscle spasm] 09-20-2023 Episodic Other connective tissue disease (1 source) Other muscle spasm; Translations: [Other muscle spasm] Onset: 09-20-2023 Episodic Other nervous system disorders (1 source) Other chronic pain; Translations: [Other chronic pain] Onset: 09-07-2023 Chronic Other nutritional; endocrine; and metabolic disorders (1 source) Abnormal weight loss; Translations: [Abnormal weight loss] Onset: 09-27-2023 Episodic Other screening for suspected conditions (not mental disorders or infectious disease) (5 sources) Decreased thyroid stimulating hormone level; Translations: [Other specified abnormal findings of blood chemistry] Onset: 12-06-2019 12-11-2019 Episodic Ovarian cyst (4 sources) Cyst of left ovary; Translations: [Unspecified ovarian cyst, left side] Onset: 09-07-2023 09-07-2023 Episodic Residual codes; unclassified (4 sources) 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; Translations: [Insomnia due to medical condition] Onset: 04-14-2023 08-10-2023 Chronic Residual codes; unclassified (12 sources) Gender finding; Translations: [Other specified health status] 12-31-2020 Episodic Residual codes; unclassified (1 source) Acquired absence of unspecified breast and nipple; Translations: [ACQUIRED ABSENCE UNS BREAST AND NIPPLE] Onset: 09-27-2022 Episodic Residual codes; unclassified (1 source) Acquired absence of bilateral breasts and nipples; Translations: [ACQUIRED ABSENCE NESTOR BREAST AND NIPPLES] Onset: 09-27-2022 Episodic Residual codes; unclassified (4 sources) Amnesia; Translations: [Other amnesia] Onset: 08-10-2023 08-10-2023 Episodic Residual codes; unclassified (1 source) Pain, unspecified; Translations: [Pain, unspecified] Onset: 09-08-2023 Episodic Spondylosis; intervertebral disc disorders; other back problems (20 sources) Backache; Translations: [Dorsalgia, unspecified] Onset: 08-10-2023 07-10-2021 Episodic Unclassified (2 sources) C/O POSSIBLE SEIZURE Onset: 07-20-2017 Unclassified (1 source) EMS Onset: 08-25-2023 Unclassified (2 sources) Low back pain, unspecified; Translations: [Low back pain, unspecified] Onset: 09-20-2023 Unclassified (1 source) Consult Onset: 09-20-2023 Unclassified (1 source) Seizure-like activity Onset: 08-26-2023 Unclassified (1 source) Supraventricular tachycardia, unspecified; Translations: [Supraventricular tachycardia, unspecified] Onset: 06-17-2023 Unclassified (2 sources) Multiple Seizure Onset: 08-24-2023 Urinary tract infections (20 sources) Urinary tract infectious disease; Translations: [Urinary tract infection, site not specified] Onset: 10-20-2021 09-09-2021 Episodic Past or Other Problems Problem Classification Problem Date Documented Date Episodic/Chronic Cardiac dysrhythmias (4 sources) Intermittent palpitations; Translations: [Palpitations] Onset: 01-31-2023 02-11-2023 Episodic Conditions associated with dizziness or vertigo (4 sources) Lightheadedness; Translations: [Dizziness and giddiness] Onset: 02-01-2023 02-11-2023 Episodic Epilepsy; convulsions (20 sources) Neurological finding; Translations: [Unspecified convulsions] Onset: 08-31-2018 06-02-2021 Episodic Headache; including migraine (7 sources) Headache; Translations: [Frequent headache] Onset: 07-20-2017 03-13-2020 Episodic Mood disorders (8 sources) Mood disorders Onset: 08-26-2023 08-26-2023 Other circulatory disease (2 sources) Personal history of other diseases of the circulatory system; Translations: [Personal history of other diseases of the circulatory system] Onset: 06-17-2023 Episodic Other connective tissue disease (13 sources) Transient limb paralysis; Translations: [Other symptoms and signs involving the nervous system] Onset: 01-22-2022 01-22-2022 Episodic Other lower respiratory disease (2 sources) Dyspnea on exertion; Translations: [Other forms of dyspnea] Onset: 02-01-2023 02-11-2023 Episodic Other lower respiratory disease (2 sources) Other forms of dyspnea; Translations: [Other forms of dyspnea] Onset: 02-01-2023 Episodic Other nervous system disorders (2 sources) Paresthesia; Translations: [Paresthesia of skin] Onset: 03-02-2023 03-02-2023 Episodic Other nutritional; endocrine; and metabolic disorders (3 sources) Abnormal weight loss; Translations: [Abnormal weight loss] Onset: 12-05-2019 12-11-2019 Episodic Residual codes; unclassified (3 sources) Other general symptoms and signs; Translations: [OTHER GENERAL SYMPTOMS AND SIGNS] Onset: 07-20-2017 Episodic Residual codes; unclassified (6 sources) Difficulty sleeping ; Translations: [Sleep disorder, unspecified] Onset: 08-31-2018 03-13-2020 Episodic Screening and history of mental health and substance abuse codes (14 sources) Finding of opiate drug in blood; Translations: [History of adulthood abuse] Onset: 11-04-2021 11-04-2021 Episodic Suicide and intentional self-inflicted injury (1 source) Suicidal ideations; Translations: [SUICIDAL IDEATIONS] Onset: 07-20-2017 Episodic Syncope (2 sources) Syncope and collapse; Translations: [Syncope and collapse] Onset: 06-29-2023 Episodic Unclassified (1 source) Supraventricular tachycardia, unspecified; Translations: [Supraventricular tachycardia, unspecified] Onset: 11-16-2023 Viral infection (13 sources) Disease caused by 2019-nCoV; Translations: [COVID-19] Onset: 04-24-2021 04-24-2021 Episodic Results Test Name Value Interpretation Reference Range Facility Outside Recordson 12-13-2023 Outside Records [id number] IFF [facility] Basic Metabolic Panelon 11-25 Anion gap [Moles/Vol] 11 mmol/L 9 - 17 mmol/L [facility] Calcium [Mass/Vol] 9.4 mg/dL 8.6 - 10. 4 mg/dL [facility] Chloride [Moles/Vol] 100 mmol/L 98 - 10 7 mmol/L [facility] CO2 [Moles/Vol] 28 mmol/L 20 - 31 mmol/L [facility] Creatinine [Mass/Vol] 0.7 mg/dL 0.5 - 0.9 mg/dL [facility] Est, Glonoemy [facility] - [facility] Comment on above: These results are [...] that affects renal tubular secretion. Glucose [Mass/Vol] 88 mg/dL 70 - 99 mg/dL [facility] Potassium [Moles/Vol] 3.8 mmol/L 3.7 - 5.3 mmol/L [facility] Sodium [Moles/Vol] 139 mmol/L 135 - 144 mmol/L [facility] Urea nitrogen [Mass/Vol] 10 mg/dL 6 - 20 mg/dL [facility] Urea nitrogen/Creatinine [Mass ratio] 14 mg/mg 9 - 20 [facility] Basic Metabolic Profon 12-08 Anion gap [Moles/Vol] 11 mmol/L Normal 9-17 [facility] Comment on above: Performed By: #### C NARCISO, BMP #### [facility] [address] [place], [place] [id number] Fire Alarm Repairer: Chidi Richter MD BUN/CRE Ratio 14 Normal -20 [facility] Comment on above: Performed By: #### C NARCISO, BMP #### [facility] [address] [place] [address] Fire Alarm Repairer: Chidi Richter MD Calcium [Mass/Vol] 9.4 mg/dL Normal 8.6-10.4 [facility] Comment on above: Performed By: #### C NARCISO, BMP #### [facility] [address] [facility] [place] [address] Fire Alarm Repairer: Chidi Richter MD Chloride [Moles/Vol] 100 mmol/L Normal 98-107 [facility] Comment on above: Performed By: #### C NARCISO, BMP #### [facility] [place] [address] Fire Alarm Repairer: Chidi Richter MD CO2 [Moles/Vol] 28 mmol/L Normal 20-31 [facility] Comment on above: Performed By: #### C NARCISO, BMP #### [facility] [place] [address] Fire Alarm Repairer: Chidi Richter MD Creatinine [Mass/Vol] 0.7 mg/dL Normal 0.5-0.9 [facility] Comment on above: Performed By: #### C NARCISO, BMP #### [facility] [address] [place] [address]. [place] [address] Fire Alarm Repairer: Chidi Richter MD GFR/1.73 sq M.predicted among non-blacks MDRD (S/P/Bld) [Vol rate/Area] mL/min/{1.73_m2} Normal >60 [facility] Comment on above: Result Comment: These [...] affects renal tubular secretion. Performed By: #### C NARCISO, BMP #### [facility] [address] [place] [address] Fire Alarm Repairer: Chidi Richter MD Glucose [Mass/Vol] 88 mg/dL Normal 70-99 [facility] Comment on above: Performed By: #### C NARCISO, BMP #### [facility] [address] [facility] [place] [address] Fire Alarm Repairer: Chidi Richter MD Potassium [Moles/Vol] 3.8 mmol/L Normal 3.7-5.3 [facility] Comment on above: Performed By: #### C NARCISO, BMP #### [facility] [place] [address] Fire Alarm Repairer: Chidi Richter MD Sodium [Moles/Vol] 139 mmol/L Normal 135-144 [facility] Comment on above: Performed By: #### C NARCISO, BMP #### [facility] [address] [facility] [place] [address] Fire Alarm Repairer: Chidi Richter MD Urea nitrogen [Mass/Vol] 10 mg/dL Normal 6-20 [facility] Comment on above: Performed By: #### C NARCISO, BMP #### [facility] [place] [address] Fire Alarm Repairer: Chidi Richter MD CBCon 12-09-2023 Erythrocyte distribution width (RBC) [Ratio] 13.3 % 11.8 - 14.4 % [facility] Hematocrit (Bld) [Volume fraction] 40.9 % 36.3 - 47.1 % [facility] Hemoglobin (Bld) [Mass/Vol] 13.7 g/dL 11.9 - 15.1 g/dL [facility] MCH (RBC) [Entitic mass] 28.5 pg 25.2 - 33.5 pg [facility] MCHC (RBC) [Mass/Vol] 33.5 g/dL 28.4 - 34.8 g/dL [facility] MCV (RBC) [Entitic vol] 85.0 fL 82.6 - 102.9 fL [facility] Nucleated RBC/100 WBC (Bld) [Ratio] 0.0 % 0.0 per 100 WBC [facility] Platelet mean volume (Bld) [Entitic vol] 9.9 fL 8.1 - 13.5 fL [facility] Platelets (Bld) [#/Vol] 253 10*3/uL [facility] RBC (Bld) [#/Vol] 4.81 10*6/uL 3.95 - 5.1 1 m/uL [facility] WBC other (Bld) [#/Vol] 6.6 [facility] Erythrocyte distribution width (RBC) [Ratio] 13.3 % Normal 11.8-14.4 [facility] Comment on above: Performed By: #### C NARCISO, BMP #### [facility] [address] [place] [address] Fire Alarm Repairer: Chidi Richter MD Hematocrit (Bld) [Volume fraction] 40.9 % Normal 36.3-47.1 [facility] Comment on above: Performed By: #### C NARCISO, BMP #### [facility] [address] [place] [address] [employer] Alarm Repairer: Chidi Richter MD Hemoglobin (Bld) [Mass/Vol] 13.7 g/dL Normal 11.9-15.1 [facility] Comment on above: Performed By: #### C NARCISO, BMP #### [facility] [address] [place] [address] Fire Alarm Repairer: Chidi Richter MD MCH (RBC) [Entitic mass] 28.5 pg Normal 25.2-33.5 [facility] Comment on above: Performed By: #### C NARCISO, BMP #### [facility] [address] [place] [address] Fire Alarm Repairer: Chidi Richter MD MCHC (RBC) [Mass/Vol] 33.5 g/dL Normal 28.4-34.8 [facility] Comment on above: Performed By: #### C NARCISO, BMP #### [facility] [address] [place] [address] Fire Alarm Repairer: Chidi Richter MD MCV (RBC) [Entitic vol] 85.0 fL Normal 82.6-102.9 [facility] Comment on above: Performed By: #### C NARCISO, BMP #### [facility] [facility] [place] [address] Fire Alarm Repairer: hCidi Richter MD NRBC Automated 0.0 per 100 WBC Normal 0.0 [facility] Comment on above: Performed By: #### C NARCISO, BMP #### [facility] [facility] [address] Fire Alarm Repairer: Chidi Richter MD Platelet mean volume (Bld) [Entitic vol] 9.9 fL Normal 8.1-13.5 [facility] Comment on above: Performed By: #### C NARCISO, BMP #### [facility] [place] [address] Fire Alarm Repairer: Chidi Richter MD Platelets (Bld) [#/Vol] 253 10*3/uL Normal 138-453 [facility] Comment on above: Performed By: #### C NARCISO, BMP #### [facility] [place] [address] Fire Alarm Repairer: Chidi Richter MD RBC (Bld) [#/Vol] 4.81 10*6/uL Normal 3.95-5.11 [facility] Comment on above: Performed By: #### C BC, BMP #### [facility] [address] [place] [address] Fire Alarm Repairer: Chidi Richter MD WBC (Bld) [#/Vol] 6.6 10*3/uL Normal 3.5-11.3 [facility] Comment on above: Performed By: #### C BC, BMP #### [facility] [address] [place] [address] Fire Alarm Repairer: Chidi Richter MD Basic Metabolic Profon 12-05 Anion gap [Moles/Vol] 17 mmol/L Normal 9-17 [facility] Comment on above: Performed By: #### B MP, CBC #### [facility] [address] [place] [address] Fire Alarm Repairer: Chidi Richter MD BUN/CRE Ratio 20 Normal 9-20 [facility] Comment on above: Performed By: #### B MP, CBC #### [facility] [address] [place] [address] Fire Alarm Repairer: Chidi Richter MD Calcium [Mass/Vol] 9.8 mg/dL Normal 8.6-10.4 [facility] Comment on above: Performed By: #### B MP, CBC #### [facility] [address] [place] [address] Fire Alarm Repairer: Chidi Richter MD Chloride [Moles/Vol] 97 mmol/L Low 98-107 [facility] Comment on above: Performed By: #### B MP, CBC #### [facility] [address] [place] [address] Fire Alarm Repairer: Chidi Richter MD CO2 [Moles/Vol] 25 mmol/L Normal 20-31 [facility] Comment on above: Performed By: #### B MP, CBC #### [facility] [address] [place] [address] Fire Alarm Repairer: Chidi Richter MD Creatinine [Mass/Vol] 0.7 mg/dL Normal 0.5-0.9 [facility] Comment on above: Performed By: #### B MP, CBC #### [facility] [address] [place] [address] Fire Alarm Repairer: Chidi Richter MD GFR/1.73 sq M.predicted among non-blacks MDRD (S/P/Bld) [Vol rate/Area] mL/min/{1.73_m2} Normal >60 [facility] Comment on above: Result Comment: These [...] affects renal tubular secretion. Performed By: #### B MP, CBC #### [facility] [address] [facility] [place] [address] Fire Alarm Repairer: Chidi Richter MD Glucose [Mass/Vol] 56 mg/dL Low 70-99 [facility] Comment on above: Performed By: #### B MP, CBC #### [facility] [address] [facility] [place] [address] Fire Alarm Repairer: Chidi Richter MD Potassium [Moles/Vol] 3.8 mmol/L Normal 3.7-5.3 [facility] Comment on above: Performed By: #### B MP, CBC #### [facility] [address] [place] [address] Fire Alarm Repairer: Chidi Richter MD Sodium [Moles/Vol] 139 mmol/L Normal 135-144 [facility] Comment on above: Performed By: #### B MP, CBC #### [facility] [place] [address] Fire Alarm Repairer: Chidi Richter MD Urea nitrogen [Mass/Vol] 14 mg/dL Normal 6-20 [facility] Comment on above: Performed By: #### B MP, CBC #### [facility] [place] [address] Fire Alarm Repairer: Chidi Richter MD CBCon 12-06-2023 Erythrocyte distribution width (RBC) [Ratio] 13.2 % Normal 11.8-14.4 [facility] Comment on above: Performed By: #### B MP, CBC #### [facility] [address] [place] [address]. [place] [address] Fire Alarm Repairer: Chidi Richter MD Hematocrit (Bld) [Volume fraction] 40.6 % Normal 36.3-47.1 [facility] Comment on above: Performed By: #### B MP, CBC #### [facility] [address] [place] [address]. [place] [address] Fire Alarm Repairer: Chidi Richter MD Hemoglobin (Bld) [Mass/Vol] 13.6 g/dL Normal 11.9-15.1 [facility] Comment on above: Performed By: #### B MP, CBC #### [facility] [address] [place] [address]. [place] [address] Fire Alarm Repairer: Chidi Richter MD MCH (RBC) [Entitic mass] 29.2 pg Normal 25.2-33.5 [facility] Comment on above: Performed By: #### B MP, CBC #### [facility] [address] [place] [address] [place] [address] Fire Alarm Repairer: Chidi Richter MD MCHC (RBC) [Mass/Vol] 33.5 g/dL Normal 28.4-34.8 [facility] Comment on above: Performed By: #### B MP, CBC #### [facility] [place] [address] Fire Alarm Repairer: Chidi Richter MD MCV (RBC) [Entitic vol] 87.3 fL Normal 82.6-102.9 [facility] Comment on above: Performed By: #### B MP, CBC #### [facility] [address] [place] [address] Fire Alarm Repairer: Chidi Richter MD NRBC Automated 0.0 per 100 WBC Normal 0.0 [facility] Comment on above: Performed By: #### B MP, CBC #### [facility] [address] [place] [address] Fire Alarm Repairer: Chidi Richter MD Platelet mean volume (Bld) [Entitic vol] 10.3 fL Normal 8.1-13.5 [facility] Comment on above: Performed By: #### B MP, CBC #### [facility] [address] [place] [address] Fire Alarm Repairer: Chidi Richter MD Platelets (Bld) [#/Vol] 233 10*3/uL Normal 138-453 [facility] Comment on above: Performed By: #### B MP, CBC #### [facility] [address] [place] [address]. [place] [address] Fire Alarm Repairer: Chidi Richter MD RBC (Bld) [#/Vol] 4.65 10*6/uL Normal 3.95-5.11 [facility] Comment on above: Performed By: #### B MP, CBC #### [facility] [address] [place] [address] Fire Alarm Repairer: Chidi Richter MD WBC (Bld) [#/Vol] 7.0 10*3/uL Normal 3.5-11.3 [facility] Comment on above: Performed By: #### B MP, CBC #### [facility] [address] [place] [address] Fire Alarm Repairer: Chidi Richter MD Basic Metabolic Profon 12-01 -2023 Anion gap [Moles/Vol] 10 mmol/L Normal 9-17 [facility] Comment on above: Performed By: #### C NARCISO, BMP #### [facility] [address] [place] [address] Fire Alarm Repairer: Chidi Richter MD BUN/CRE Ratio 11 Normal 9-20 [facility] Comment on above: Performed By: #### C BC, BMP #### [facility] [address] [place] [address] Fire Alarm Repairer: Chidi Richter MD Calcium [Mass/Vol] 9.2 mg/dL Normal 8.6-10.4 [facility] Comment on above: Performed By: #### C BC, BMP #### [facility] [address] [place] [address] Fire Alarm Repairer: Chidi Richter MD Chloride [Moles/Vol] 105 mmol/L Normal 98-107 [facility] Comment on above: Performed By: #### C BC, BMP #### [facility] [address] [place] [address] Fire Alarm Repairer: Chidi Richter MD CO2 [Moles/Vol] 26 mmol/L Normal 20-31 [facility] Comment on above: Performed By: #### C BC, BMP #### [facility] [address] [facility] [place] [address] Fire Alarm Repairer: Chidi Richter MD Creatinine [Mass/Vol] 0.7 mg/dL Normal 0.5-0.9 [facility] Comment on above: Performed By: #### C BC, BMP #### [facility] [address] [facility] [place] [address] Fire Alarm Repairer: Chidi Richter MD GFR/1.73 sq M.predicted among non-blacks MDRD (S/P/Bld) [Vol rate/Area] mL/min/{1.73_m2} Normal >60 [facility] Comment on above: Result Comment: These [...] affects renal tubular secretion. Performed By: #### C NARCISO, BMP #### [facility] [address] [facility] [place] [address] Fire Alarm Repairer: Chidi Richter MD Glucose [Mass/Vol] 93 mg/dL Normal 70-99 [facility] Comment on above: Performed By: #### C NARCISO, BMP #### [facility] [address] [facility] [place] [address] Fire Alarm Repairer: Chidi Richter MD Potassium [Moles/Vol] 3.9 mmol/L Normal 3.7-5.3 [facility] Comment on above: Performed By: #### C BC, BMP #### [facility] [address] [facility] [place] [address] Fire Alarm Repairer: Chidi Richter MD Sodium [Moles/Vol] 141 mmol/L Normal 135-144 [facility] Comment on above: Performed By: #### C BC, BMP #### [facility] [address] [facility] [place] [address] Fire Alarm Repairer: Chidi Richter MD Urea nitrogen [Mass/Vol] 8 mg/dL Normal 6-20 [facility] Comment on above: Performed By: #### C BC, BMP #### [facility] [address] [facility] [place] [address] Fire Alarm Repairer: Chidi Richter MD CBCon 12-02-2023 Erythrocyte distribution width (RBC) [Ratio] 13.0 % Normal 11.8-14.4 [facility] Comment on above: Performed By: #### C BC, BMP #### [facility] [address] [place] [address]. [place] [address] Fire Alarm Repairer: Chidi Richter MD Hematocrit (Bld) [Volume fraction] 39.2 % Normal 36.3-47.1 [facility] Comment on above: Performed By: #### C NARCISO, BMP #### [facility] [place] [address] Fire Alarm Repairer: Chidi Richter MD Hemoglobin (Bld) [Mass/Vol] 12.7 g/dL Normal 11.9-15.1 [facility] Comment on above: Performed By: #### C BC, BMP #### [facility] [address] [facility] [place] [address] Fire Alarm Repairer: Chidi Richter MD MCH (RBC) [Entitic mass] 28.7 pg Normal 25.2-33.5 [facility] Comment on above: Performed By: #### C BC, BMP #### [facility] [place] [address] Fire Alarm Repairer: Chidi Richter MD MCHC (RBC) [Mass/Vol] 32.4 g/dL Normal 28.4-34.8 [facility] Comment on above: Performed By: #### C BC, BMP #### [facility] [address] [place] [address] Fire Alarm Repairer: Chidi Richter MD MCV (RBC) [Entitic vol] 88.5 fL Normal 82.6-102.9 [facility] Comment on above: Performed By: #### C BC, BMP #### [facility] [place] [address] Fire Alarm Repairer: Chidi Richter MD NRBC Automated 0.0 per 100 WBC Normal 0.0 [facility] Comment on above: Performed By: #### C BC, BMP #### [facility] [address] [place] [address]. [place] [address] Fire Alarm Repairer: Chidi Richter MD Platelet mean volume (Bld) [Entitic vol] 10.0 fL Normal 8.1-13.5 [facility] Comment on above: Performed By: #### C NARCISO, BMP #### [facility] [address] [place], [place] [address]. [place] [address] Fire Alarm Repairer: Chidi Richter MD Platelets (Bld) [#/Vol] 221 10*3/uL Normal 138-453 [facility] Comment on above: Performed By: #### C BC, BMP #### [facility] [facility] [place] [address] Fire Alarm Repairer: Chidi Richter MD RBC (Bld) [#/Vol] 4.43 10*6/uL Normal 3.95-5.11 [facility] Comment on above: Performed By: #### C BC, BMP #### [facility] [place] [address] Fire Alarm Repairer: Chidi Richter MD WBC (Bld) [#/Vol] 7.4 10*3/uL Normal 3.5-11.3 [facility] Comment on above: Performed By: #### C , [facility] #### [facility] [address] [place], [place] [address] Fire Alarm Repairer: Chidi Richter MD BMPon 12-01-2023 Anion gap [Moles/Vol] 8 mmol/L Low 9 - 17 mmol/L [facility] Calcium [Mass/Vol] 8.8 mg/dL 8.6 - 10. 4 mg/dL [facility] Chloride [Moles/Vol] 106 mmol/L 98 - 10 7 mmol/L [facility] CO2 [Moles/Vol] 26 mmol/L 20 - 31 mmol/L [facility] Creatinine [Mass/Vol] 0.8 mg/dL 0.5 - 0.9 mg/dL [facility] Est, Glonoemy [facility] [facility] - [facility] Comment on above: These results are [...] that affects renal tubular secretion. Glucose [Mass/Vol] 92 mg/dL 70 - 99 mg/dL [facility] Interpretation and review of laboratory results Abnormal [facility] Potassium [Moles/Vol] 4.1 mmol/L 3.7 - 5.3 mmol/L [facility] Sodium [Moles/Vol] 140 mmol/L 135 - 144 mmol/L [facility] Urea nitrogen [Mass/Vol] 11 mg/dL 6 - 20 mg/dL [facility] Urea nitrogen/Creatinine [Mass ratio] 14 mg/mg 9 - 20 [facility] Basic Metabolic Profon 11-30 Anion gap [Moles/Vol] 8 mmol/L Low 9-17 [facility] Comment on above: Performed By: #### C NARCISO, CP #### [facility] [address] [place] [address] Fire Alarm Repairer: Chidi Richter MD BUN/CRE Ratio 14 Normal 9-20 [facility] Comment on above: Performed By: #### C NARCISO, CP #### [facility] [address] [place] [address] Fire Alarm Repairer: Chidi Richter MD Calcium [Mass/Vol] 8.8 mg/dL Normal 8.6-10.4 [facility] Comment on above: Performed By: #### C NARCISO, CP #### [facility] [address] [place] [address] Fire Alarm Repairer: Chidi Richter MD Chloride [Moles/Vol] 106 mmol/L Normal 98-107 [facility] Comment on above: Performed By: #### C NARCISO, CP #### [facility] [address] [place] [address] Fire Alarm Repairer: Chidi Richter MD CO2 [Moles/Vol] 26 mmol/L Normal 20-31 [facility] Comment on above: Performed By: #### C NARCISO, CP #### [facility] [address] [place] [address] Fire Alarm Repairer: Chidi Richter MD Creatinine [Mass/Vol] 0.8 mg/dL Normal 0.5-0.9 [facility] Comment on above: Performed By: #### C NARCISO, CP #### [facility] [address] [place] [address] Fire Alarm Repairer: Chidi Richter MD GFR/1.73 sq M.predicted among non-blacks MDRD (S/P/Bld) [Vol rate/Area] mL/min/{1.73_m2} Normal >60 [facility] Comment on above: Result Comment: These [...] affects renal tubular secretion. Performed By: #### C NARCISO, CP #### [facility] [address] [place] [address] Fire Alarm Repairer: Chidi Richter MD Glucose [Mass/Vol] 92 mg/dL Normal 70-99 [facility] Comment on above: Performed By: #### C NARCISO, CP #### [facility] [address] [place] [address] Fire Alarm Repairer: Chidi Richter MD Potassium [Moles/Vol] 4.1 mmol/L Normal 3.7-5.3 [facility] Comment on above: Performed By: #### C NARCISO, CP #### [facility] [address] [place] [address] Fire Alarm Repairer: Chidi Richter MD Sodium [Moles/Vol] 140 mmol/L Normal 135-144 [facility] Comment on above: Performed By: #### C NARCISO, CP #### [facility] [address] [place] [address] Fire Alarm Repairer: Chidi Richter MD Urea nitrogen [Mass/Vol] 11 mg/dL Normal 6-20 [facility] Comment on above: Performed By: #### C NARCISO, CP #### [facility] [address] [place] [address] Fire Alarm Repairer: Chidi Richter MD CBCon 12-01-2023 Erythrocyte distribution width (RBC) [Ratio] 13.1 % Normal 11.8-14.4 [facility] Comment on above: Performed By: #### C NARCISO, CP #### [facility] [address] [facility] [place] [address] Fire Alarm Repairer: Chidi Richter MD Hematocrit (Bld) [Volume fraction] 40.6 % Normal 36.3-47.1 [facility] Comment on above: Performed By: #### C NARCISO, CP #### [facility] [address] [place] [address]. [place] [address] Fire Alarm Repairer: Chidi Richter MD Hemoglobin (Bld) [Mass/Vol] 13.1 g/dL Normal 11.9-15.1 [facility] Comment on above: Performed By: #### C NARCISO, CP #### [facility] [address] [place] [address]. [place] [address] Fire Alarm Repairer: Chidi Richter MD MCH (RBC) [Entitic mass] 28.7 pg Normal 25.2-33.5 [facility] Comment on above: Performed By: #### C NARCISO, CP #### [facility] [address] [place] [address]. [place] [address] Fire Alarm Repairer: Chidi Richter MD MCHC (RBC) [Mass/Vol] 32.3 g/dL Normal 28.4-34.8 [facility] Comment on above: Performed By: #### C NARCISO, CP #### [facility] [address] [place] [address]. [place] [address] Fire Alarm Repairer: Chidi Richter MD MCV (RBC) [Entitic vol] 88.8 fL Normal 82.6-102.9 [facility] Comment on above: Performed By: #### C NARCISO, CP #### [facility] [address] [place] [address] Fire Alarm Repairer: Chidi Richter MD NRBC Automated 0.0 per 100 WBC Normal 0.0 [facility] Comment on above: Performed By: #### C NARCISO, CP #### [facility] [address] [place] [address] Fire Alarm Repairer: Chidi Richter MD Platelet mean volume (Bld) [Entitic vol] 10.0 fL Normal 8.1-13.5 [facility] Comment on above: Performed By: #### C NARCISO, CP #### [facility] [address] [place] [address]. [place] [address] Fire Alarm Repairer: Chidi Richter MD Platelets (Bld) [#/Vol] 222 10*3/uL Normal 138-453 [facility] Comment on above: Performed By: #### C NARCISO, CP #### [facility] [place] [address] Fire Alarm Repairer: Chidi Richter MD RBC (Bld) [#/Vol] 4.57 10*6/uL Normal 3.95-5.11 [facility] Comment on above: Performed By: #### Kristen STUART, CP #### [facility] [address] [place] [address]. [place] [address] Fire Alarm Repairer: Chidi Richter MD WBC (Bld) [#/Vol] 6.0 10*3/uL Normal 3.5-11.3 [facility] Comment on above: Performed By: #### C NARCISO, CP #### [facility] [place] [address] Fire Alarm Repairer: Chidi Richter MD CBC with Auto Differentialon 12-01-2023 Basophils (Bld) [#/Vol] 0.03 10*3/uL [facility] Basophils/100 WBC (Bld) 1 % 0 - 2 % [facility] Eosinophils (Bld) [#/Vol] 0.08 10*3/uL [facility] Eosinophils/100 WBC (Bld) 1 % 1 - 4 % [facility] Erythrocyte distribution width (RBC) [Ratio] 13.0 % 11.8 - 14.4 % [facility] Hematocrit (Bld) [Volume fraction] 40.2 % 36.3 - 47.1 % [facility] Hemoglobin (Bld) [Mass/Vol] 13.0 g/dL 11.9 - 15.1 g/dL [facility] Immature granulocytes (Bld) [#/Vol] 0.01 10*3/uL [facility] Immature granulocytes/100 WBC (Bld) 0 % 0 [facility] Interpretation and review of laboratory results Abnormal [facility] Lymphocytes/100 WBC (Bld) 44 % High 24 - 43 % [facility] Lymphocytes/100 WBC (Bld) 2.68 % [facility] MCH (RBC) [Entitic mass] 28.8 pg 25.2 - 33.5 pg [facility] MCHC (RBC) [Mass/Vol] 32.3 g/dL 28.4 - 34.8 g/dL [facility] MCV (RBC) [Entitic vol] 89.1 fL 82.6 - 102.9 fL [facility] Monocytes/100 WBC (Bld) 8 % 3 - 12 % [facility] Monocytes/100 WBC (Bld) 0.47 % [facility] Neutrophils/100 WBC (Bld) 46 % 36 - 65 % [facility] Nucleated RBC/100 WBC (Bld) [Ratio] 0.0 % 0.0 per 100 WBC [facility] Platelet mean volume (Bld) [Entitic vol] 10.2 fL 8.1 - 13.5 fL [facility] Platelets (Bld) [#/Vol] 222 10*3/uL [facility] RBC (Bld) [#/Vol] 4.51 10*6/uL 3.95 - 5.1 1 m/uL [facility] Segmented neutrophils/100 WBC (Bld) 2.89 % [facility] WBC other (Bld) [#/Vol] 6.2 [facility] CBC with Diffon 12-01-2023 Abs. Basophil 0.03 k/uL Normal 0.00-0.20 [facility] Comment on above: Performed By: #### C NARCISO, CP #### [facility] [address] [place] [address] Fire Alarm Repairer: Chidi Richter MD Abs.Imm.Granulocyte 0.01 k/uL Normal 0.00-0.30 [facility] Comment on above: Performed By: #### Kristen STUART, CP #### [facility] [address] [place] [address] Fire Alarm Repairer: Chidi Richter MD Abs.Neutrophil (Seg) 2.89 k/uL Normal 1.50-8.10 [facility] Comment on above: Performed By: #### Kristen STUART, CP #### [facility] [address] [place] [address] Fire Alarm Repairer: Chidi Richter MD Basophils/100 WBC (Bld) 1 % Normal 0-2 [facility] Comment on above: Performed By: #### Kristen STUART, CP #### [facility] [address] [place] [address] Fire Alarm Repairer: Chidi Richter MD Eosinophils (Bld) [#/Vol] 0.08 10*3/uL Normal 0.00-0.44 [facility] Comment on above: Performed By: #### Kristen STUART, CP #### [facility] [address] [place] [address] Fire Alarm Repairer: Chidi Richter MD Eosinophils/100 WBC (Bld) 1 % Normal 1-4 [facility] Comment on above: Performed By: #### C NARCISO, CP #### [facility] [address] [place] [address] Fire Alarm Repairer: Chidi Richter MD Erythrocyte distribution width (RBC) [Ratio] 13.0 % Normal 11.8-14.4 [facility] Comment on above: Performed By: #### C NARCISO, CP #### [facility] [address] [place] [address] Fire Alarm Repairer: Chidi Richter MD Hematocrit (Bld) [Volume fraction] 40.2 % Normal 36.3-47.1 [facility] Comment on above: Performed By: #### C NARCISO, CP #### [facility] [address] [place] [address]. [place] [address] Fire Alarm Repairer: Chidi Richter MD Hemoglobin (Bld) [Mass/Vol] 13.0 g/dL Normal 11.9-15.1 [facility] Comment on above: Performed By: #### C NARCISO, CP #### [facility] [facility] [place] [address] Fire Alarm Repairer: Chidi Richter MD Immature granulocytes/100 WBC (Bld) 0 % Normal 0 [facility] Comment on above: Performed By: #### C NARCISO, CP #### [facility] [place] [address] Fire Alarm Repairer: Chidi Richter MD Lymphocytes (Bld) [#/Vol] 2.68 10*3/uL Normal 1.10-3.70 [facility] Comment on above: Performed By: #### C NARCISO, CP #### [facility] [place] [address] Fire Alarm Repairer: Chidi Richter MD Lymphocytes/100 WBC (Bld) 44 % High 24-43 [facility] Comment on above: Performed By: #### C BC, CP #### [facility] [address] [facility] [address] Fire Alarm Repairer: Chidi Richter MD MCH (RBC) [Entitic mass] 28.8 pg Normal 25.2-33.5 [facility] Comment on above: Performed By: #### C BC, CP #### [facility] [facility] [place] [address] Fire Alarm Repairer: Chidi Richter MD MCHC (RBC) [Mass/Vol] 32.3 g/dL Normal 28.4-34.8 [facility] Comment on above: Performed By: #### C BC, CP #### [facility] [address] [place] [address]. [place] [address] Fire Alarm Repairer: Chidi Richter MD MCV (RBC) [Entitic vol] 89.1 fL Normal 82.6-102.9 [facility] Comment on above: Performed By: #### C NARCISO, CP #### [facility] [address] [place] [address]. [place] [address] Fire Alarm Repairer: Chidi Richter MD Monocytes (Bld) [#/Vol] 0.47 10*3/uL Normal 0.10-1.20 [facility] Comment on above: Performed By: #### C BC, CP #### [facility] [place] [address] Fire Alarm Repairer: Chidi Richter MD Monocytes/100 WBC (Bld) 8 % Normal 3-12 [facility] Comment on above: Performed By: #### C NARCISO, CP #### [facility] [address] [place] [address]. [place] [address] Fire Alarm Repairer: Chidi Richter MD Neutrophil (Seg) 46 % Normal 36-65 [facility] Comment on above: Performed By: #### C NARCISO, CP #### [facility] [address] [place] [address] Fire Alarm Repairer: Chidi Richter MD NRBC Automated 0.0 per 100 WBC Normal 0.0 [facility] Comment on above: Performed By: #### C NARCISO, CP #### [facility] [address] [place] [address] Fire Alarm Repairer: Chidi Richter MD Platelet mean volume (Bld) [Entitic vol] 10.2 fL Normal 8.1-13.5 [facility] Comment on above: Performed By: #### C NARCISO, CP #### [facility] [facility] [place] [address] Fire Alarm Repairer: Chidi Richter MD Platelets (Bld) [#/Vol] 222 10*3/uL Normal 138-453 [facility] Comment on above: Performed By: #### C NARCISO, CP #### [facility] [address] [facility] [address] Fire Alarm Repairer: Chidi Richter MD RBC (Bld) [#/Vol] 4.51 10*6/uL Normal 3.95-5.11 [facility] Comment on above: Performed By: #### C NARCISO, CP #### [facility] [address] [place] [address] Fire Alarm Repairer: Chidi Richter MD WBC (Bld) [#/Vol] 6.2 10*3/uL Normal 3.5-11.3 [facility] Comment on above: Performed By: #### C NARCISO, CP #### [facility] [address] [place] [address] Fire Alarm Repairer: Chidi Richter MD CT CERVICAL SPINE WO CONTRAS Ton 12-01-2023 CT CERVICAL SPINE WO CONTRAST EXAMINATION: CT OF THE CERVICAL SPINE WITHOUT CONTRAST; CT OF THE HEAD WITHOUT CONTRAST 12/01/2023 4:00 pm TECHNIQUE: CT of the cervical spine was performed without the administration of intravenous contrast. Multiplanar reformatted images are provided for review. Automated exposure control, iterative reconstruction, and/or weight based adjustment of the mA/kV was utilized to reduce the radiation dose to as low as reasonably achievable.; CT of the head was performed without the administration of intravenous contrast. Automated exposure control, iterative reconstruction, and/or weight based adjustment of the mA/kV was utilized to reduce the radiation dose to as low as reasonably achievable. COMPARISON: None. HISTORY: ORDERING SYSTEM PROVIDED HISTORY: breakthrough seizure TECHNOLOGIST PROVIDED HISTORY: breakthrough seizure Decision Support Exception - unselect if not a suspected or confirmed emergency medical condition->Emergency Medical Condition (MA) Reason for Exam: breakthrough seizure FINDINGS: BRAIN/VENTRICLES: There is no acute intracranial hemorrhage, mass effect or midline shift. No abnormal extra-axial fluid collection. The dominguez-white differentiation is maintained without evidence of an acute infarct. There is prominence of the ventricles and sulci due to global parenchymal volume loss. There are nonspecific areas of hypoattenuation within the periventricular and subcortical white matter, which likely represent chronic microvascular ischemic change. ORBITS: The visualized portion of the orbits demonstrate no acute abnormality. SINUSES: The visualized paranasal sinuses and mastoid air cells demonstrate no acute abnormality. SOFT TISSUES/SKULL: No acute abnormality of the visualized skull or soft tissues. BONES/ALIGNMENT: There is no acute fracture or traumatic malalignment. DEGENERATIVE CHANGES: Multilevel endplate and facet arthrosis is noted. There is straightening of cervical curvature. No evidence of severe spinal canal stenosis. SOFT TISSUES: There is no prevertebral soft tissue swelling. IMPRESSION: No acute abnormalities seen in the head and cervical spine. Interpreted by: Alonso Jones MD Signed by: Alonso Jones MD 12/01/23 Final result Normal [facility] CT Cervical spine WO contras ton 12-01-2023 Radiology Study observation (narrative) [facility] CT HEAD WO CONTRASTon 2023 CT HEAD WO CONTRAST EXAMINATION: CT OF THE CERVICAL SPINE WITHOUT CONTRAST; CT OF THE HEAD WITHOUT CONTRAST 12/01/2023 4:00 pm TECHNIQUE: CT of the cervical spine was performed without the administration of intravenous contrast. Multiplanar reformatted images are provided for review. Automated exposure control, iterative reconstruction, and/or weight based adjustment of the mA/kV was utilized to reduce the radiation dose to as low as reasonably achievable.; CT of the head was performed without the administration of intravenous contrast. Automated exposure control, iterative reconstruction, and/or weight based adjustment of the mA/kV was utilized to reduce the radiation dose to as low as reasonably achievable. COMPARISON: None. HISTORY: ORDERING SYSTEM PROVIDED HISTORY: breakthrough seizure TECHNOLOGIST PROVIDED HISTORY: breakthrough seizure Decision Support Exception - unselect if not a suspected or confirmed emergency medical condition->Emergency Medical Condition (MA) Reason for Exam: breakthrough seizure FINDINGS: BRAIN/VENTRICLES: There is no acute intracranial hemorrhage, mass effect or midline shift. No abnormal extra-axial fluid collection. The dominguez-white differentiation is maintained without evidence of an acute infarct. There is prominence of the ventricles and sulci due to global parenchymal volume loss. There are nonspecific areas of hypoattenuation within the periventricular and subcortical white matter, which likely represent chronic microvascular ischemic change. ORBITS: The visualized portion of the orbits demonstrate no acute abnormality. SINUSES: The visualized paranasal sinuses and mastoid air cells demonstrate no acute abnormality. SOFT TISSUES/SKULL: No acute abnormality of the visualized skull or soft tissues. BONES/ALIGNMENT: There is no acute fracture or traumatic malalignment. DEGENERATIVE CHANGES: Multilevel endplate and facet arthrosis is noted. There is straightening of cervical curvature. No evidence of severe spinal canal stenosis. SOFT TISSUES: There is no prevertebral soft tissue swelling. IMPRESSION: No acute abnormalities seen in the head and cervical spine. Interpreted by: Alonso Jones MD Signed by: Alonso Jones MD 12/01/23 Final result Normal [facility] CT Head WO contraston 2023 Radiology Study observation (narrative) [facility] Comp Metabolic Profon 2023 Albumin [Mass/Vol] 4.4 g/dL Normal 3.5-5.2 [facility] Comment on above: Performed By: #### C BC, CP #### [facility] [address] [place] [address] Fire Alarm Repairer: Chidi Richter MD Alkaline Phos 53 U/L Normal 35-104 [facility] Comment on above: Performed By: #### C NARCISO, CP #### [facility] [address] [place] [address] Fire Alarm Repairer: Chidi Richter MD ALT [Catalytic activity/Vol] U/L Low 5-33 [facility] Comment on above: Performed By: #### C NARCISO, CP #### [facility] [address] [place] [address] Fire Alarm Repairer: Chidi Richter MD Anion gap [Moles/Vol] 7 mmol/L Low 9-17 [facility] Comment on above: Performed By: #### C NARCISO, CP #### [facility] [address] [place] [address] Fire Alarm Repairer: Chidi Richter MD AST [Catalytic activity/Vol] 14 U/L Normal <32 [facility] Comment on above: Performed By: #### C NARCISO, CP #### [facility] [address] [place] [address] Fire Alarm Repairer: Chidi Richter MD Bilirubin [Mass/Vol] 0.2 mg/dL Low 0.3-1.2 [facility] Comment on above: Performed By: #### C NARCISO, CP #### [facility] [address] [place] [address] Fire Alarm Repairer: Chidi Richter MD BUN/CRE Ratio 16 Normal 9-20 [facility] Comment on above: Performed By: #### C NARCISO, CP #### [facility] [address] [place] [address] Fire Alarm Repairer: Chidi Richter MD Calcium [Mass/Vol] 9.4 mg/dL Normal 8.6-10.4 [facility] Comment on above: Performed By: #### C NARCISO, CP #### [facility] [address] [facility] [place] [address] Fire Alarm Repairer: Chidi Richter MD Chloride [Moles/Vol] 104 mmol/L Normal 98-107 [facility] Comment on above: Performed By: #### C NARCISO, CP #### [facility] [address] [facility] [place] [address] Fire Alarm Repairer: Chidi Richter MD CO2 [Moles/Vol] 31 mmol/L Normal 20-31 [facility] Comment on above: Performed By: #### C NARCISO, CP #### [facility] [address] [facility] [place] [address] Fire Alarm Repairer: Chidi Richter MD Creatinine [Mass/Vol] 0.9 mg/dL Normal 0.5-0.9 [facility] Comment on above: Performed By: #### C NARCISO, CP #### [facility] [place] [address] Fire Alarm Repairer: Chidi Richter MD GFR/1.73 sq M.predicted among non-blacks MDRD (S/P/Bld) [Vol rate/Area] mL/min/{1.73_m2} Normal >60 [facility] Comment on above: Result Comment: These [...] affects renal tubular secretion. Performed By: #### C NARCISO, CP #### [facility] [address] [place] [address] Fire Alarm Repairer: Chidi Richter MD Glucose [Mass/Vol] 95 mg/dL Normal 70-99 [facility] Comment on above: Performed By: #### C BC, CP #### [facility] [address] [place] [address] Fire Alarm Repairer: Chidi Richter MD Potassium [Moles/Vol] 4.1 mmol/L Normal 3.7-5.3 [facility] Comment on above: Performed By: #### C NARCISO, CP #### [facility] [address] [place] [address] Fire Alarm Repairer: Chidi Richter MD Protein [Mass/Vol] 7.0 g/dL Normal 6.4-8.3 [facility] Comment on above: Performed By: #### C NARCISO, CP #### [facility] [address] [place] [address] Fire Alarm Repairer: Chidi Richter MD Sodium [Moles/Vol] 142 mmol/L Normal 135-144 [facility] Comment on above: Performed By: #### C NARCISO, CP #### [facility] [place] [address] Fire Alarm Repairer: Chidi Richter MD Urea nitrogen [Mass/Vol] 14 mg/dL Normal 6-20 [facility] Comment on above: Performed By: #### C NARCISO, CP #### [facility] [address] [place] [address] Fire Alarm Repairer: Chidi Richter MD No Panel Informationon 11-30 No acute abnormaliti es seen in the head and cervical spine. [facility] RIS CONSOLIDATED EXAMINATION: CT OF THE CERVICAL SPINE WITHOUT CONTRAST; CT OF THE HEAD WITHOUT CONTRAST 12/01/2023 4:00 pm TECHNIQUE: CT of the cervical spine was performed without the administration of intravenous contrast. Multiplanar reformatted images are provided for review. Automated exposure control, iterative reconstruction, and/or weight based adjustment of the mA/kV was utilized to reduce the radiation dose to as low as reasonably achievable.; CT of the head was performed without the administration of intravenous contrast. Automated exposure control, iterative reconstruction, and/or weight based adjustment of the mA/kV was utilized to reduce the radiation dose to as low as reasonably achievable. COMPARISON: None. HISTORY: ORDERING SYSTEM PROVIDED HISTORY: breakthrough seizure TECHNOLOGIST PROVIDED HISTORY: breakthrough seizure Decision Support Exception - unselect if not a suspected or confirmed emergency medical condition->Emergency Medical Condition (MA) Reason for Exam: breakthrough seizure FINDINGS: BRAIN/VENTRICLES: There is no acute intracranial hemorrhage, mass effect or midline shift. No abnormal extra-axial fluid collection. The dominguez-white differentiation is maintained without evidence of an acute infarct. There is prominence of the ventricles and sulci due to global parenchymal volume loss. There are nonspecific areas of hypoattenuation within the periventricular and subcortical white matter, which likely represent chronic microvascular ischemic change. ORBITS: The visualized portion of the orbits demonstrate no acute abnormality. SINUSES: The visualized paranasal sinuses and mastoid air cells demonstrate no acute abnormality. SOFT TISSUES/SKULL: No acute abnormality of the visualized skull or soft tissues. BONES/ALIGNMENT: There is no acute fracture or traumatic malalignment. DEGENERATIVE CHANGES: Multilevel endplate and facet arthrosis is noted. There is straightening of cervical curvature. No evidence of severe spinal canal stenosis. SOFT TISSUES: There is no prevertebral soft tissue swelling. [facility] Alonso Jones MD - 12/01/2023 EXAMINATION: CT OF THE CERVICAL SPINE WITHOUT CONTRAST; CT OF THE HEAD WITHOUT CONTRAST 12/01/2023 4:00 pm TECHNIQUE: CT of the cervical spine was performed without the administration of intravenous contrast. Multiplanar reformatted images are provided for review. Automated exposure control, iterative reconstruction, and/or weight based adjustment of the mA/kV was utilized to reduce the radiation dose to as low as reasonably achievable.; CT of the head was performed without the administration of intravenous contrast. Automated exposure control, iterative reconstruction, and/or weight based adjustment of the mA/kV was utilized to reduce the radiation dose to as low as reasonably achievable. COMPARISON: None. HISTORY: ORDERING SYSTEM PROVIDED HISTORY: breakthrough seizure TECHNOLOGIST PROVIDED HISTORY: breakthrough seizure Decision Support Exception - unselect if not a suspected or confirmed emergency medical condition->Emergency Medical Condition (MA) Reason for Exam: breakthrough seizure FINDINGS: BRAIN/VENTRICLES: There is no acute intracranial hemorrhage, mass effect or midline shift. No abnormal extra-axial fluid collection. The dominguez-white differentiation is maintained without evidence of an acute infarct. There is prominence of the ventricles and sulci due to global parenchymal volume loss. There are nonspecific areas of hypoattenuation within the periventricular and subcortical white matter, which likely represent chronic microvascular ischemic change. ORBITS: The visualized portion of the orbits demonstrate no acute abnormality. SINUSES: The visualized paranasal sinuses and mastoid air cells demonstrate no acute abnormality. SOFT TISSUES/SKULL: No acute abnormality of the visualized skull or soft tissues. BONES/ALIGNMENT: There is no acute fracture or traumatic malalignment. DEGENERATIVE CHANGES: Multilevel endplate and facet arthrosis is noted. There is straightening of cervical curvature. No evidence of severe spinal canal stenosis. SOFT TISSUES: There is no prevertebral soft tissue swelling. IMPRESSION: No acute abnormalities seen in the head and cervical spine. [facility] No Panel InformationOrdered By: Alonso Jones on 12-01-2023 [facility] Work Phone: CBC AND AUTO DIFFon 11-30-19 24 ABSOLUTE BASOPHIL 0.0 X10E9/L Normal 0.0-0.2 [facility] Comment on above: Performed By: #### C BCA, CMP ####[facility] ([id number])[address], [place] [address] ABSOLUTE NEUTROPHIL 4.3 X10E9/L Normal 1.5-6.6 [facility] Comment on above: Performed By: #### C BCA, CMP ####[facility] ([id number])[address], [place] [address] Basophils/100 WBC (Bld) 0.6 % Normal [facility] Comment on above: Performed By: #### C BCA, CMP ####[facility] ([id number])[address] [address] [address] Eosinophils (Bld) [#/Vol] 0.1 10*3/uL Normal 0.0-0.4 [facility] Comment on above: Performed By: #### C BCA, CMP ####[facility] ([id number])[address] [address] [address] Eosinophils/100 WBC (Bld) 1.1 % Normal [facility] Comment on above: Performed By: #### C BCA, CMP ####[facility] ([id number])[address] [address] [address] Erythrocyte distribution width (RBC) [Ratio] 14.5 % Normal 11.5-15.0 [facility] Comment on above: Performed By: #### C SLAVA, CMP ####[facility] ([id number])[address] [address] [address] Hematocrit (Bld) [Volume fraction] 38.7 % Normal 35-47 [facility] Comment on above: Performed By: #### C BCA, CMP ####[facility] ([id number])[address] [address] [address] Hemoglobin (Bld) [Mass/Vol] 13.3 g/dL Normal 11.7-15.5 [facility] Comment on above: Performed By: #### C BCA, CMP ####[facility] ([id number])[address] [address] [address] Lymphocytes (Bld) [#/Vol] 2.5 10*3/uL Normal 1.0-3.5 [facility] Comment on above: Performed By: #### C BCA, CMP ####[facility] ([id number])[address] [address] [address] Lymphocytes/100 WBC (Bld) 32.3 % Normal [facility] Comment on above: Performed By: #### C BCA, CMP ####[facility] ([id number])[address], [place] [address] MCH (RBC) [Entitic mass] 29.1 pg Normal 27-34 [facility] Comment on above: Performed By: #### C BCA, CMP ####[facility] ([id number])[address] [address] MCHC (RBC) [Mass/Vol] 34.3 g/dL Normal 32-36 [facility] Comment on above: Performed By: #### C BCA, CMP ####[facility] ([id number])[address] [address] MCV (RBC) [Entitic vol] 85 fL Normal 80-100 [facility] Comment on above: Performed By: #### C BCA, CMP ####[facility] ([id number])[address] [address], [place] [address] Monocytes (Bld) [#/Vol] 0.7 10*3/uL Normal 0-0.9 [facility] Comment on above: Performed By: #### C BCA, CMP ####[facility] ([id number])[address], [place] [address] Monocytes/100 WBC (Bld) 9.6 % Normal [facility] Comment on above: Performed By: #### C BCA, CMP ####[facility] ([id number])[address], [place] [address] Neutrophils/100 WBC (Bld) 56.4 % Normal [facility] Comment on above: Performed By: #### C BCA, CMP ####[facility] ([id number])[address], [place] [address] Platelet mean volume (Bld) [Entitic vol] 7.9 fL Normal 7-12 [facility] Comment on above: Performed By: #### C SLAVA, CMP ####[facility] ([id number])[address], [place] [address] Platelets (Bld) [#/Vol] 221 10*3/uL Normal 150-450 [facility] Comment on above: Performed By: #### C BCA, CMP ####[facility] ([id number])[address], [place] [address] RBC COUNT 4.57 X10E12/L Normal 3.80-5.20 [facility] Comment on above: Performed By: #### C BCA, CMP ####[facility] ([id number])[address] [address] WBC (Bld) [#/Vol] 7.7 10*3/uL Normal 4.0-11.0 [facility] Comment on above: Performed By: #### C BCA, CMP ####[facility] ([id number])[address] [address] [place] [address] COMPREHENSIVE METABOLIC PANE Basim 11-30-2023 Albumin [Mass/Vol] 4.4 g/dL Normal 3.2-5.3 [facility] Comment on above: Performed By: #### C BCA, CMP ####[facility] ([id number])[address] [address], [place] [address] ALP [Catalytic activity/Vol] 45 U/L Normal 39-130 [facility] Comment on above: Performed By: #### C BCA, CMP ####[facility] ([id number])[address] [address] [place] [address] ALT [Catalytic activity/Vol] 3 U/L Normal 0-31 [facility] Comment on above: Performed By: #### C BCA, CMP ####[facility] ([id number])[address], [place] [address] Anion gap [Moles/Vol] 8 mmol/L Normal 5-15 [facility] Comment on above: Performed By: #### C BCA, CMP ####[facility] ([id number])[address], [place] [address] AST [Catalytic activity/Vol] 14 U/L Normal 0-41 [facility] Comment on above: Performed By: #### C BCA, CMP ####[facility] ([id number])[address], [place] [address] Bilirubin [Mass/Vol] 0.6 mg/dL Normal 0.3-1.2 [facility] Comment on above: Performed By: #### C BCA, CMP ####[facility] ([id number])[address], [address], [place] [address] Calcium [Mass/Vol] 9.7 mg/dL Normal 8.5-10.5 [facility] Comment on above: Performed By: #### C BCA, CMP ####[facility] ([id number])[address], [address], [place] [address] Chloride [Moles/Vol] 103 mmol/L Normal 98-109 [facility] Comment on above: Performed By: #### C BCA, CMP ####[facility] ([id number])[address], [place] [address] CO2 [Moles/Vol] 31 mmol/L Normal 22-32 [facility] Comment on above: Performed By: #### C BCA, CMP ####[facility] ([id number])[address], [place] [address] Creatinine [Mass/Vol] 0.85 mg/dL Normal 0.40-1.00 [facility] Comment on above: Result Comment: METH OD TRACEABLE TO IDMS STANDARD Performed By: #### C BCA, CMP ####[facility] ([id number])[address] [address], [place] [address] eGFR (CKD-EPI) NON-RACE DEPENDENT >90 Normal >59 [facility] Comment on above: Result Comment: Reported eGFR is based on the CKD-EPI 2020 equation that does not use a race coefficient. Performed By: #### C BCA, CMP ####[facility] ([id number])[address] [address] [address] Glucose [Mass/Vol] 98 mg/dL Normal 65-99 [facility] Comment on above: Performed By: #### C BCA, CMP ####[facility] ([id number])[address] [address] [address] Potassium [Moles/Vol] 4.1 mmol/L Normal 3.5-5.0 [facility] Comment on above: Performed By: #### C BCA, CMP ####[facility] ([id number])[address] [address], [place] [address] Protein [Mass/Vol] 6.9 g/dL Normal 6.0-8.0 [facility] Comment on above: Performed By: #### C BCA, CMP ####[facility] ([id number])[address] [address] [address] Sodium [Moles/Vol] 142 mmol/L Normal 134-146 [facility] Comment on above: Performed By: #### C BCA, CMP ####[facility] ([id number])[address] [address] [address] Urea nitrogen [Mass/Vol] 15 mg/dL Normal 5-23 [facility] Comment on above: Performed By: #### C BCA, CMP ####[facility] ([id number])[address] [address] CBC AND AUTO DIFFon 11-29-19 24 ABSOLUTE BASOPHIL 0.0 X10E9/L Normal 0.0-0.2 [facility] Comment on above: Performed By: #### C BCA, CMP ####[facility] ([id number])[address] [address] ABSOLUTE NEUTROPHIL 2.3 X10E9/L Normal 1.5-6.6 [facility] Comment on above: Performed By: #### C SLAVA, CMP ####[facility] ([id number])[address] [address], [place] [address] Basophils/100 WBC (Bld) 0.5 % Normal [facility] Comment on above: Performed By: #### C SLAVA, CMP ####[facility] ([id number])[address] [address], [place] [address] Eosinophils (Bld) [#/Vol] 0.1 10*3/uL Normal 0.0-0.4 [facility] Comment on above: Performed By: #### C SLAVA, CMP ####[facility] ([id number])[address] [address], [place] [address] Eosinophils/100 WBC (Bld) 2.2 % Normal [facility] Comment on above: Performed By: #### C SLAVA, CMP ####[facility] ([id number])[address] [address] [address] Erythrocyte distribution width (RBC) [Ratio] 14.1 % Normal 11.5-15.0 [facility] Comment on above: Performed By: #### C BCA, CMP ####[facility] ([id number])[address] [address] [address] Hematocrit (Bld) [Volume fraction] 39.7 % Normal 35-47 [facility] Comment on above: Performed By: #### C BCA, CMP ####[facility] ([id number])[address] [address] Hemoglobin (Bld) [Mass/Vol] 13.4 g/dL Normal 11.7-15.5 [facility] Comment on above: Performed By: #### C BCA, CMP ####[facility] ([id number])[address] [address], [place] [address] Lymphocytes (Bld) [#/Vol] 2.6 10*3/uL Normal 1.0-3.5 [facility] Comment on above: Performed By: #### C BCA, CMP ####[facility] ([id number])[address], [place] [address] Lymphocytes/100 WBC (Bld) 46.1 % Normal [facility] Comment on above: Performed By: #### C BCA, CMP ####[facility] ([id number])[address] [address] [address] MCH (RBC) [Entitic mass] 29.1 pg Normal 27-34 [facility] Comment on above: Performed By: #### C BCA, CMP ####[facility] ([id number])[address] [address] MCHC (RBC) [Mass/Vol] 33.8 g/dL Normal 32-36 [facility] Comment on above: Performed By: #### C BCA, CMP ####[facility] ([id number])[address] [address] MCV (RBC) [Entitic vol] 86 fL Normal 80-100 [facility] Comment on above: Performed By: #### C BCA, CMP ####[facility] ([id number])[address] [address] Monocytes (Bld) [#/Vol] 0.5 10*3/uL Normal 0-0.9 [facility] Comment on above: Performed By: #### C SLAVA, CMP ####[facility] ([id number])[address], [place] [address] Monocytes/100 WBC (Bld) 9.7 % Normal [facility] Comment on above: Performed By: #### C SLAVA, CMP ####[facility] ([id number])[address] [address] Neutrophils/100 WBC (Bld) 41.5 % Normal [facility] Comment on above: Performed By: #### C SLAVA, CMP ####[facility] ([id number])[address] [address] Platelet mean volume (Bld) [Entitic vol] 8.2 fL Normal 7-12 [facility] Comment on above: Performed By: #### C SLAVA, CMP ####[facility] ([id number])[address] [address] Platelets (Bld) [#/Vol] 205 10*3/uL Normal 150-450 [facility] Comment on above: Performed By: #### C SLAVA, CMP ####[facility] ([id number])[address], [place] [address] RBC COUNT 4.60 X10E12/L Normal 3.80-5.20 [facility] Comment on above: Performed By: #### C SLAVA, CMP ####[facility] ([id number])[address] [address] WBC (Bld) [#/Vol] 5.7 10*3/uL Normal 4.0-11.0 [facility] Comment on above: Performed By: #### C SLAVA, CMP ####[facility] ([id number])[address], [place] [address] COMPREHENSIVE METABOLIC PANE Basim 11-29-2023 Albumin [Mass/Vol] 4.2 g/dL Normal 3.2-5.3 [facility] Comment on above: Performed By: #### C BCA, CMP ####[facility] ([id number])[address], [place] [address] ALP [Catalytic activity/Vol] 44 U/L Normal 39-130 [facility] Comment on above: Performed By: #### C BCA, CMP ####[facility] ([id number])[address], [place] [address] ALT [Catalytic activity/Vol] 3 U/L Normal 0-31 [facility] Comment on above: Performed By: #### C BCA, CMP ####[facility] ([id number])[address], [place] [address] Anion gap [Moles/Vol] 9 mmol/L Normal 5-15 [facility] Comment on above: Performed By: #### C BCA, CMP ####[facility] ([id number])[address], [place] [address] AST [Catalytic activity/Vol] 15 U/L Normal 0-41 [facility] Comment on above: Performed By: #### C BCA, CMP ####[facility] ([id number])[address], [place] [address] Bilirubin [Mass/Vol] 0.5 mg/dL Normal 0.3-1.2 [facility] Comment on above: Performed By: #### C BCA, CMP ####[facility] ([id number])[address], [place] [address] Calcium [Mass/Vol] 9.6 mg/dL Normal 8.5-10.5 [facility] Comment on above: Performed By: #### C BCA, CMP ####[facility] ([id number])[address] [address] Chloride [Moles/Vol] 104 mmol/L Normal 98-109 [facility] Comment on above: Performed By: #### C BCA, CMP ####[facility] ([id number])[address] [address] CO2 [Moles/Vol] 29 mmol/L Normal 22-32 [facility] Comment on above: Performed By: #### C BCA, CMP ####[facility] ([id number])[address] [address] [address] Creatinine [Mass/Vol] 0.92 mg/dL Normal 0.40-1.00 [facility] Comment on above: Result Comment: METH OD TRACEABLE TO IDMS STANDARD Performed By: #### C BCA, CMP ####[facility] ([id number])[address] [address] [address] eGFR (CKD-EPI) NON-RACE DEPENDENT >90 Normal >59 [facility] Comment on above: Result Comment: Reported eGFR is based on the CKD-EPI 2021 equation that does not use a race coefficient. Performed By: #### C BCA, CMP ####[facility] ([id number])[address] [address] [address] Glucose [Mass/Vol] 92 mg/dL Normal 65-99 [facility] Comment on above: Performed By: #### C BCA, CMP ####[facility] ([id number])[address] [address] [address] Potassium [Moles/Vol] 4.0 mmol/L Normal 3.5-5.0 [facility] Comment on above: Performed By: #### C BCA, CMP ####[facility] ([id number])[address], [place] [address] Protein [Mass/Vol] 7.0 g/dL Normal 6.0-8.0 [facility] Comment on above: Performed By: #### C BCA, CMP ####[facility] ([id number])[address], [place] [address] Sodium [Moles/Vol] 142 mmol/L Normal 134-146 [facility] Comment on above: Performed By: #### C BCA, CMP ####[facility] ([id number])[address] [place] [address] Urea nitrogen [Mass/Vol] 17 mg/dL Normal 5-23 [facility] Comment on above: Performed By: #### C BCA, CMP ####[facility] ([id number])[address] [address] [place] [address] Glucose Glucometer (BldC) [M ass/Vol]on 11-29-2023 Glucose [Mass/Vol] 84 mg/dL Normal 65-99 [facility] CBC AND AUTO DIFFon 11-28-19 ABSOLUTE BASOPHIL 0.0 X10E9/L Normal 0.0-0.2 [facility] Comment on above: Performed By: #### C BCA, CMP ####[facility] ([id number])[address] [address], [place] [address] ABSOLUTE NEUTROPHIL 3.0 X10E9/L Normal 1.5-6.6 [facility] Comment on above: Performed By: #### C BCA, CMP ####[facility] ([id number])[address] [address] Basophils/100 WBC (Bld) 0.6 % Normal [facility] Comment on above: Performed By: #### C BCA, CMP ####[facility] ([id number])[address], [place] [address] Eosinophils (Bld) [#/Vol] 0.1 10*3/uL Normal 0.0-0.4 [facility] Comment on above: Performed By: #### C SLAVA, CMP ####[facility] ([id number])[address], [address], [place] [address] Eosinophils/100 WBC (Bld) 1.0 % Normal [facility] Comment on above: Performed By: #### C SLAVA, CMP ####[facility] ([id number])[address] [address] [address] Erythrocyte distribution width (RBC) [Ratio] 14.6 % Normal 11.5-15.0 [facility] Comment on above: Performed By: #### C SLAVA, CMP ####[facility] ([id number])[address] [address], [place] [address] Hematocrit (Bld) [Volume fraction] 40.1 % Normal 35-47 [facility] Comment on above: Performed By: #### C SLAVA, CMP ####[facility] ([id number])[address] [address], [place] [address] Hemoglobin (Bld) [Mass/Vol] 13.7 g/dL Normal 11.7-15.5 [facility] Comment on above: Performed By: #### C SLAVA, CMP ####[facility] ([id number])[address] [address] [address] Lymphocytes (Bld) [#/Vol] 2.8 10*3/uL Normal 1.0-3.5 [facility] Comment on above: Performed By: #### C SLAVA, CMP ####[facility] ([id number])[address] [address] [address] Lymphocytes/100 WBC (Bld) 43.5 % Normal [facility] Comment on above: Performed By: #### C BCA, CMP ####[facility] ([id number])[address], [address], [place] [address] MCH (RBC) [Entitic mass] 29.3 pg Normal 27-34 [facility] Comment on above: Performed By: #### C BCA, CMP ####[facility] ([id number])[address], [place] [address] MCHC (RBC) [Mass/Vol] 34.1 g/dL Normal 32-36 [facility] Comment on above: Performed By: #### C SLAVA, CMP ####[facility] ([id number])[address], [place] [address] MCV (RBC) [Entitic vol] 86 fL Normal 80-100 [facility] Comment on above: Performed By: #### C SLAVA, CMP ####[facility] ([id number])[address], [address] [address] Monocytes (Bld) [#/Vol] 0.5 10*3/uL Normal 0-0.9 [facility] Comment on above: Performed By: #### C BCA, CMP ####[facility] ([id number])[address], [place] [address] Monocytes/100 WBC (Bld) 8.2 % Normal [facility] Comment on above: Performed By: #### C BCA, CMP ####[facility] ([id number])[address], [place] [address] Neutrophils/100 WBC (Bld) 46.7 % Normal [facility] Comment on above: Performed By: #### C BCA, CMP ####[facility] ([id number])[address], [address], [place] [address] Platelet mean volume (Bld) [Entitic vol] 8.8 fL Normal 7-12 [facility] Comment on above: Performed By: #### C BCA, CMP ####[facility] ([id number])[address] [address] [place] [address] Platelets (Bld) [#/Vol] 220 10*3/uL Normal 150-450 [facility] Comment on above: Performed By: #### C BCA, CMP ####[facility] ([id number])[address], [place] [address] RBC COUNT 4.67 X10E12/L Normal 3.80-5.20 [facility] Comment on above: Performed By: #### C BCA, CMP ####[facility] ([id number])[address] [address] WBC (Bld) [#/Vol] 6.4 10*3/uL Normal 4.0-11.0 [facility] Comment on above: Performed By: #### C BCA, CMP ####[facility] ([id number])[address] [address] COMPREHENSIVE METABOLIC PANE Basim 11-28-2023 Albumin [Mass/Vol] 4.8 g/dL Normal 3.2-5.3 [facility] Comment on above: Performed By: #### C BCA, CMP ####[facility] ([id number])[address] [address] [place] [address] ALP [Catalytic activity/Vol] 41 U/L Normal 39-130 [facility] Comment on above: Performed By: #### C BCA, CMP ####[facility] ([id number])[address] [address] [place] [address] ALT [Catalytic activity/Vol] 4 U/L Normal 0-31 [facility] Comment on above: Performed By: #### C BCA, CMP ####[facility] ([id number])[address], [place] [address] Anion gap [Moles/Vol] 12 mmol/L Normal 5-15 [facility] Comment on above: Performed By: #### C BCA, CMP ####[facility] ([id number])[address], [place] [address] AST [Catalytic activity/Vol] 29 U/L Normal 0-41 [facility] Comment on above: Performed By: #### C BCA, CMP ####[facility] ([id number])[address] [address], [place] [address] Bilirubin [Mass/Vol] 0.8 mg/dL Normal 0.3-1.2 [facility] Comment on above: Performed By: #### C BCA, CMP ####[facility] ([id number])[address] [address], [place] [address] Calcium [Mass/Vol] 9.4 mg/dL Normal 8.5-10.5 [facility] Comment on above: Performed By: #### C BCA, CMP ####[facility] ([id number])[address] [address], [place] [address] Chloride [Moles/Vol] 104 mmol/L Normal 98-109 [facility] Comment on above: Performed By: #### C BCA, CMP ####[facility] ([id number])[address] [address], [place] [address] CO2 [Moles/Vol] 25 mmol/L Normal 22-32 [facility] Comment on above: Performed By: #### C BCA, CMP ####[facility] ([id number])[address], [place] [address] Creatinine [Mass/Vol] 0.82 mg/dL Normal 0.40-1.00 [facility] Comment on above: Result Comment: METH OD TRACEABLE TO IDMS STANDARD Performed By: #### C BCA, CMP ####[facility] ([id number])[address] [address] [address] eGFR (CKD-EPI) NON-RACE DEPENDENT >90 Normal >59 [facility] Comment on above: Result Comment: Reported eGFR is based on the CKD-EPI 2020 equation that does not use a race coefficient. Performed By: #### C BCA, CMP ####[facility] ([id number])[address] [address] [address] Glucose [Mass/Vol] 81 mg/dL Normal 65-99 [facility] Comment on above: Performed By: #### C BCA, CMP ####[facility] ([id number])[address] [address] [address] Potassium [Moles/Vol] 5.2 mmol/L High 3.5-5.0 [facility] Comment on above: Result Comment: SPEC IMEN HEMOLYZED, RESULTS INCREASED MARKEDLY HEMOLYZED Performed By: #### C BCA, CMP ####[facility] ([id number])[address] [address], [place] [address] Protein [Mass/Vol] 7.4 g/dL Normal 6.0-8.0 [facility] Comment on above: Performed By: #### C BCA, CMP ####[facility] ([id number])[address] [address], [place] [address] Sodium [Moles/Vol] 141 mmol/L Normal 134-146 [facility] Comment on above: Result Comment: RESU LTS QUESTIONABLE DUE TO HEMOLYSIS MARKEDLY HEMOLYZED Performed By: #### C BCA, CMP ####[facility] ([id number])[address] [address] [address] Urea nitrogen [Mass/Vol] 21 mg/dL Normal 5-23 [facility] Comment on above: Performed By: #### C BCA, CMP ####[facility] ([id number])[address] [address] CBC AND AUTO DIFFon 11-27-19 24 ABSOLUTE BASOPHIL 0.0 X10E9/L Normal 0.0-0.2 [facility] Comment on above: Performed By: #### C BCA, CMP ####[facility] ([id number])[address] [address] ABSOLUTE NEUTROPHIL 4.7 X10E9/L Normal 1.5-6.6 [facility] Comment on above: Performed By: #### C SLAVA, CMP ####[facility] ([id number])[address] [address] Basophils/100 WBC (Bld) 0.5 % Normal [facility] Comment on above: Performed By: #### C BCA, CMP ####[facility] ([id number])[address] [address], [place] [address] Eosinophils (Bld) [#/Vol] 0.1 10*3/uL Normal 0.0-0.4 [facility] Comment on above: Performed By: #### C BCA, CMP ####[facility] ([id number])[address] [address] Eosinophils/100 WBC (Bld) 1.3 % Normal [facility] Comment on above: Performed By: #### C BCA, CMP ####[facility] ([id number])[address] [address] Erythrocyte distribution width (RBC) [Ratio] 14.1 % Normal 11.5-15.0 [facility] Comment on above: Performed By: #### C BCA, CMP ####[facility] ([id number])[address] [address] Hematocrit (Bld) [Volume fraction] 41.2 % Normal 35-47 [facility] Comment on above: Performed By: #### C BCA, CMP ####[facility] ([id number])[address], [address] [place] [address] Hemoglobin (Bld) [Mass/Vol] 13.9 g/dL Normal 11.7-15.5 [facility] Comment on above: Performed By: #### C BCA, CMP ####[facility] ([id number])[address] [address] [place] [address] Lymphocytes (Bld) [#/Vol] 3.2 10*3/uL Normal 1.0-3.5 [facility] Comment on above: Performed By: #### C BCA, CMP ####[facility] ([id number])[address] [address] [place] [address] Lymphocytes/100 WBC (Bld) 36.0 % Normal [facility] Comment on above: Performed By: #### C BCA, CMP ####[facility] ([id number])[address] [address] MCH (RBC) [Entitic mass] 28.8 pg Normal 27-34 [facility] Comment on above: Performed By: #### C BCA, CMP ####[facility] ([id number])[address] [address] [place] [address] MCHC (RBC) [Mass/Vol] 33.6 g/dL Normal 32-36 [facility] Comment on above: Performed By: #### C BCA, CMP ####[facility] ([id number])[address] [address] [place] [address] MCV (RBC) [Entitic vol] 86 fL Normal 80-100 [facility] Comment on above: Performed By: #### C BCA, CMP ####[facility] ([id number])[address], [place] [address] Monocytes (Bld) [#/Vol] 0.7 10*3/uL Normal 0-0.9 [facility] Comment on above: Performed By: #### C BCA, CMP ####[facility] ([id number])[address], [place] [address] Monocytes/100 WBC (Bld) 8.3 % Normal [facility] Comment on above: Performed By: #### C SLAVA, CMP ####[facility] ([id number])[address], [place] [address] Neutrophils/100 WBC (Bld) 53.9 % Normal [facility] Comment on above: Performed By: #### C SLAVA, CMP ####[facility] ([id number])[address], [place] [address] Platelet mean volume (Bld) [Entitic vol] 8.2 fL Normal 7-12 [facility] Comment on above: Performed By: #### C SLAVA, CMP ####[facility] ([id number])[address], [address], [place] [address] Platelets (Bld) [#/Vol] 258 10*3/uL Normal 150-450 [facility] Comment on above: Performed By: #### C SLAVA, CMP ####[facility] ([id number])[address], [address], [place] [address] RBC COUNT 4.81 X10E12/L Normal 3.80-5.20 [facility] Comment on above: Performed By: #### C BCA, CMP ####[facility] ([id number])[address], [place] [address] WBC (Bld) [#/Vol] 8.8 10*3/uL Normal 4.0-11.0 [facility] Comment on above: Performed By: #### C BCA, CMP ####[facility] ([id number])[address], [place] [address] COMPREHENSIVE METABOLIC PANE Basim 11-27-2023 Albumin [Mass/Vol] 4.7 g/dL Normal 3.2-5.3 [facility] Comment on above: Performed By: #### C BCA, CMP ####[facility] ([id number])[address], [place] [address] ALP [Catalytic activity/Vol] 48 U/L Normal 39-130 [facility] Comment on above: Performed By: #### C BCA, CMP ####[facility] ([id number])[address], [place] [address] ALT [Catalytic activity/Vol] 4 U/L Normal 0-31 [facility] Comment on above: Performed By: #### C BCA, CMP ####[facility] ([id number])[address], [place] [address] Anion gap [Moles/Vol] 11 mmol/L Normal 5-15 [facility] Comment on above: Performed By: #### C BCA, CMP ####[facility] ([id number])[address], [place] [address] AST [Catalytic activity/Vol] 15 U/L Normal 0-41 [facility] Comment on above: Performed By: #### C BCA, CMP ####[facility] ([id number])[address], [place] [address] Bilirubin [Mass/Vol] 0.6 mg/dL Normal 0.3-1.2 [facility] Comment on above: Performed By: #### C BCA, CMP ####[facility] ([id number])[address], [place] [address] Calcium [Mass/Vol] 9.8 mg/dL Normal 8.5-10.5 [facility] Comment on above: Performed By: #### C BCA, CMP ####[facility] ([id number])[address] [address] [address] Chloride [Moles/Vol] 103 mmol/L Normal 98-109 [facility] Comment on above: Performed By: #### C BCA, CMP ####[facility] ([id number])[address] [address], [place] [address] CO2 [Moles/Vol] 24 mmol/L Normal 22-32 [facility] Comment on above: Performed By: #### C BCA, CMP ####[facility] ([id number])[address] [address] [address] Creatinine [Mass/Vol] 0.76 mg/dL Normal 0.40-1.00 [facility] Comment on above: Result Comment: METH OD TRACEABLE TO IDMS STANDARD Performed By: #### C BCA, CMP ####[facility] ([id number])[address] [address], [place] [address] eGFR (CKD-EPI) NON-RACE DEPENDENT >90 Normal >59 [facility] Comment on above: Result Comment: Reported eGFR is based on the CKD-EPI 2020 equation that does not use a race coefficient. Performed By: #### C BCA, CMP ####[facility] ([id number])[address] [address] [address] Glucose [Mass/Vol] 83 mg/dL Normal 65-99 [facility] Comment on above: Performed By: #### C BCA, CMP ####[facility] ([id number])[address] [address] [address] Potassium [Moles/Vol] 3.8 mmol/L Normal 3.5-5.0 [facility] Comment on above: Performed By: #### C BCA, CMP ####[facility] ([id number])[address], [place] [address] Protein [Mass/Vol] 7.4 g/dL Normal 6.0-8.0 [facility] Comment on above: Performed By: #### C BCA, CMP ####[facility] ([id number])[address], [place] [address] Sodium [Moles/Vol] 138 mmol/L Normal 134-146 [facility] Comment on above: Performed By: #### C BCA, CMP ####[facility] ([id number])[address], [place] [address] Urea nitrogen [Mass/Vol] 22 mg/dL Normal 5-23 [facility] Comment on above: Performed By: #### C BCA, CMP ####[facility] ([id number])[address], [place] [address] CBC AND AUTO DIFFon 11-26-19 24 ABSOLUTE BASOPHIL 0.0 X10E9/L Normal 0.0-0.2 [facility] Comment on above: Performed By: #### C BCA, CMP ####[facility] ([id number])[address], [place] [address] ABSOLUTE NEUTROPHIL 3.0 X10E9/L Normal 1.5-6.6 [facility] Comment on above: Performed By: #### C BCA, CMP ####[facility] ([id number])[address] [address], [place] [address] Basophils/100 WBC (Bld) 0.7 % Normal [facility] Comment on above: Performed By: #### C BCA, CMP ####[facility] ([id number])[address] [address], [place] [address] Eosinophils (Bld) [#/Vol] 0.0 10*3/uL Normal 0.0-0.4 [facility] Comment on above: Performed By: #### C SLAVA, CMP ####[facility] ([id number])[address] [address], [place] [address] Eosinophils/100 WBC (Bld) 0.7 % Normal [facility] Comment on above: Performed By: #### C SLAVA, CMP ####[facility] ([id number])[address] [address], [place] [address] Erythrocyte distribution width (RBC) [Ratio] 14.6 % Normal 11.5-15.0 [facility] Comment on above: Performed By: #### C SLAVA, CMP ####[facility] ([id number])[address] [address], [place] [address] Hematocrit (Bld) [Volume fraction] 41.1 % Normal 35-47 [facility] Comment on above: Performed By: #### C SLAVA, CMP ####[facility] ([id number])[address] [address], [place] [address] Hemoglobin (Bld) [Mass/Vol] 13.6 g/dL Normal 11.7-15.5 [facility] Comment on above: Performed By: #### C SLAVA, CMP ####[facility] ([id number])[address] [address], [place] [address] Lymphocytes (Bld) [#/Vol] 2.7 10*3/uL Normal 1.0-3.5 [facility] Comment on above: Performed By: #### C BCA, CMP ####[facility] ([id number])[address] [address] Lymphocytes/100 WBC (Bld) 41.7 % Normal [facility] Comment on above: Performed By: #### C BCA, CMP ####[facility] ([id number])[address] [address] MCH (RBC) [Entitic mass] 28.9 pg Normal 27-34 [facility] Comment on above: Performed By: #### C SLAVA, CMP ####[facility] ([id number])[address] [address] MCHC (RBC) [Mass/Vol] 33.2 g/dL Normal 32-36 [facility] Comment on above: Performed By: #### C SLAVA, CMP ####[facility] ([id number])[address] [address] MCV (RBC) [Entitic vol] 87 fL Normal 80-100 [facility] Comment on above: Performed By: #### C SLAVA, CMP ####[facility] ([id number])[address] [address] [address] Monocytes (Bld) [#/Vol] 0.7 10*3/uL Normal 0-0.9 [facility] Comment on above: Performed By: #### C SLAVA, CMP ####[facility] ([id number])[address] [address] Monocytes/100 WBC (Bld) 10.5 % Normal [facility] Comment on above: Performed By: #### Kristen PEDERSEN, CMP ####[facility] ([id number])[address] [address] [address] Neutrophils/100 WBC (Bld) 46.4 % Normal [facility] Comment on above: Performed By: #### C SLAVA, CMP ####[facility] ([id number])[address], [place] [address] Platelet mean volume (Bld) [Entitic vol] 8.2 fL Normal 7-12 [facility] Comment on above: Performed By: #### C BCA, CMP ####[facility] ([id number])[address] [address], [place] [address] Platelets (Bld) [#/Vol] 226 10*3/uL Normal 150-450 [facility] Comment on above: Performed By: #### C BCA, CMP ####[facility] ([id number])[address], [place] [address] RBC COUNT 4.72 X10E12/L Normal 3.80-5.20 [facility] Comment on above: Performed By: #### C BCA, CMP ####[facility] ([id number])[address] [address] [place] [address] WBC (Bld) [#/Vol] 6.6 10*3/uL Normal 4.0-11.0 [facility] Comment on above: Performed By: #### C BCA, CMP ####[facility] ([id number])[address] [address] [place] [id number] COMPREHENSIVE METABOLIC PANE Basim 11-26-2023 Albumin [Mass/Vol] 4.7 g/dL Normal 3.2-5.3 [facility] Comment on above: Performed By: #### C BCA, CMP ####[facility] ([id number])[address] [address] [place] [id number] ALP [Catalytic activity/Vol] 48 U/L Normal 39-130 [facility] Comment on above: Performed By: #### C BCA, CMP ####[facility] ([id number])[address] [address] [place] [address] ALT [Catalytic activity/Vol] 4 U/L Normal 0-31 [facility] Comment on above: Performed By: #### C BCA, CMP ####[facility] ([id number])[address] [address] [place] [address] Anion gap [Moles/Vol] 12 mmol/L Normal 5-15 [facility] Comment on above: Performed By: #### C BCA, CMP ####[facility] ([id number])[address], [place] [address] AST [Catalytic activity/Vol] 14 U/L Normal 0-41 [facility] Comment on above: Performed By: #### C BCA, CMP ####[facility] ([id number])[address], [address], [place] [address] Bilirubin [Mass/Vol] 0.8 mg/dL Normal 0.3-1.2 [facility] Comment on above: Performed By: #### C BCA, CMP ####[facility] ([id number])[address], [address], [place] [address] Calcium [Mass/Vol] 9.8 mg/dL Normal 8.5-10.5 [facility] [place] Comment on above: Performed By: #### C BCA, CMP ####[facility] ([id number])[address], [address], [place] [address] Chloride [Moles/Vol] 106 mmol/L Normal 98-109 [facility] Comment on above: Performed By: #### C BCA, CMP ####[facility] ([id number])[address], [address], [place] [address] CO2 [Moles/Vol] 24 mmol/L Normal 22-32 [facility] Comment on above: Performed By: #### C BCA, CMP ####[facility] ([id number])[address] [address], [place] [address] Creatinine [Mass/Vol] 0.78 mg/dL Normal 0.40-1.00 [facility] Comment on above: Result Comment: METH OD TRACEABLE TO IDMS STANDARD Performed By: #### C BCA, CMP ####[facility] ([id number])[address] [address] [address] eGFR (CKD-EPI) NON-RACE DEPENDENT >90 Normal >59 [facility] Comment on above: Result Comment: Reported eGFR is based on the CKD-EPI 2020 equation that does not use a race coefficient. Performed By: #### C BCA, CMP ####[facility] ([id number])[address] [address] [address] Glucose [Mass/Vol] 73 mg/dL Normal 65-99 [facility] [place] Comment on above: Performed By: #### C BCA, CMP ####[facility] ([id number])[address] [address], [place] [address] Potassium [Moles/Vol] 4.3 mmol/L Normal 3.5-5.0 [facility] Comment on above: Performed By: #### C BCA, CMP ####[facility] ([id number])[address] [address] [place] [address] Protein [Mass/Vol] 7.3 g/dL Normal 6.0-8.0 [facility] Comment on above: Performed By: #### C BCA, CMP ####[facility] ([id number])[address] [address] [place] [address], [place] [address] Sodium [Moles/Vol] 142 mmol/L Normal 134-146 [facility] Comment on above: Performed By: #### C BCA, CMP ####[facility] ([id number])[address] [address] [place] [address], [place] [address] Urea nitrogen [Mass/Vol] 16 mg/dL Normal 5-23 [facility] Comment on above: Performed By: #### C BCA, CMP ####[facility] ([id number])[address] [address] [address] CBC AND AUTO DIFFon 11-25-19 24 ABSOLUTE BASOPHIL 0.0 X10E9/L Normal 0.0-0.2 [facility] Comment on above: Performed By: #### C MP, CBCA ####[facility] ([id number])[address] [address] [address] ABSOLUTE NEUTROPHIL 4.0 X10E9/L Normal 1.5-6.6 [facility] Comment on above: Performed By: #### C MP, CBCA ####[facility] ([id number])[address] [address], [place] [address] Basophils/100 WBC (Bld) 0.4 % Normal [facility] Comment on above: Performed By: #### C MP, CBCA ####[facility] ([id number])[address] [address], [place] [address] Eosinophils (Bld) [#/Vol] 0.0 10*3/uL Normal 0.0-0.4 [facility] Comment on above: Performed By: #### C MP, CBCA ####[facility] ([id number])[address] [address] [place] [address] Eosinophils/100 WBC (Bld) 0.5 % Normal [facility] Comment on above: Performed By: #### C MP, CBCA ####[facility] ([id number])[address] [address], [place] [address] Erythrocyte distribution width (RBC) [Ratio] 14.6 % Normal 11.5-15.0 [facility] Comment on above: Performed By: #### C MP, CBCA ####[facility] ([id number])[address] [address] [place] [address], [place] [address] Hematocrit (Bld) [Volume fraction] 40.1 % Normal 35-47 [facility] Comment on above: Performed By: #### C MP, CBCA ####[facility] ([id number])[address] [address] Hemoglobin (Bld) [Mass/Vol] 13.6 g/dL Normal 11.7-15.5 [facility] Comment on above: Performed By: #### C MP, CBCA ####[facility] ([id number])[address], [address] [address] Lymphocytes (Bld) [#/Vol] 2.7 10*3/uL Normal 1.0-3.5 [facility] Comment on above: Performed By: #### C MP, CBCA ####[facility] ([id number])[address] [address] [address] Lymphocytes/100 WBC (Bld) 37.3 % Normal [facility] Comment on above: Performed By: #### C MP, CBCA ####[facility] ([id number])[address] [address] MCH (RBC) [Entitic mass] 29.0 pg Normal 27-34 [facility] Comment on above: Performed By: #### C MP, CBCA ####[facility] ([id number])[address] [address] [address] MCHC (RBC) [Mass/Vol] 33.8 g/dL Normal 32-36 [facility] Comment on above: Performed By: #### C MP, CBCA ####[facility] ([id number])[address] [address] [address] MCV (RBC) [Entitic vol] 86 fL Normal 80-100 [facility] Comment on above: Performed By: #### C MP, CBCA ####[facility] ([id number])[address] [address] [address] Monocytes (Bld) [#/Vol] 0.5 10*3/uL Normal 0-0.9 [facility] Comment on above: Performed By: #### C MP, CBCA ####[facility] ([id number])[address], [address], [place] [address] Monocytes/100 WBC (Bld) 6.8 % Normal [facility] Comment on above: Performed By: #### C MP, CBCA ####[facility] ([id number])[address], [address], [place] [address] Neutrophils/100 WBC (Bld) 55.0 % Normal [facility] Comment on above: Performed By: #### C MP, CBCA ####[facility] ([id number])[address], [address] [address] Platelet mean volume (Bld) [Entitic vol] 8.0 fL Normal 7-12 [facility] Comment on above: Performed By: #### C MP, CBCA ####[facility] ([id number])[address] [address] [address] Platelets (Bld) [#/Vol] 239 10*3/uL Normal 150-450 [facility] Comment on above: Performed By: #### C MP, CBCA ####[facility] ([id number])[address], [address], [place] [address] RBC COUNT 4.67 X10E12/L Normal 3.80-5.20 [facility] Comment on above: Performed By: #### C MP, CBCA ####[facility] ([id number])[address], [address], [place] [address] WBC (Bld) [#/Vol] 7.3 10*3/uL Normal 4.0-11.0 [facility] [place] Comment on above: Performed By: #### C MP, CBCA ####[facility] ([id number])[address], [address], [place] [address] COMPREHENSIVE METABOLIC PANE Basim 11-25-2023 Albumin [Mass/Vol] 4.4 g/dL Normal 3.2-5.3 [facility] [place] Comment on above: Performed By: #### C DANIEL CBCA ####[facility] ([id number])[address], [address], [place] [address] ALP [Catalytic activity/Vol] 46 U/L Normal 39-130 [facility] Comment on above: Performed By: #### C DANIEL, CBCA ####[facility] ([id number])[address], [address], [place] [address] ALT [Catalytic activity/Vol] 5 U/L Normal 0-31 [facility] Comment on above: Performed By: #### C DANIEL CBCA ####[facility] ([id number])[address], [address], [place] [address] Anion gap [Moles/Vol] 7 mmol/L Normal 5-15 [facility] Comment on above: Performed By: #### C DANIEL CBCA ####[facility] ([id number])[address], [address], [place] [address] AST [Catalytic activity/Vol] 15 U/L Normal 0-41 [facility] Comment on above: Performed By: #### C DANIEL CBCA ####[facility] ([id number])[address], [address], [place] [address] Bilirubin [Mass/Vol] 0.7 mg/dL Normal 0.3-1.2 [facility] Comment on above: Performed By: #### C DANIEL CBCA ####[facility] ([id number])[address], [address], [place] [address] Calcium [Mass/Vol] 9.5 mg/dL Normal 8.5-10.5 [facility] Comment on above: Performed By: #### C DANIEL CBCA ####[facility] ([id number])[address] [address] [address] Chloride [Moles/Vol] 108 mmol/L Normal 98-109 [facility] Comment on above: Performed By: #### C DANIEL CBCA ####[facility] ([id number])[address], [address] [address] CO2 [Moles/Vol] 28 mmol/L Normal 22-32 [facility] Comment on above: Performed By: #### C DANIEL CBCA ####[facility] ([id number])[address] [place] [address] Creatinine [Mass/Vol] 0.78 mg/dL Normal 0.40-1.00 [facility] Comment on above: Result Comment: METH OD TRACEABLE TO IDMS STANDARD Performed By: #### C DANIEL CBCJesús ####[facility] ([id number])[address] [address] [address] eGFR (CKD-EPI) NON-RACE DEPENDENT >90 Normal >59 [facility] Comment on above: Result Comment: Reported eGFR is based on the CKD-EPI 2020 equation that does not use a race coefficient. Performed By: #### C DANIEL CBCJesús ####[facility] ([id number])[address] [address] [address] Glucose [Mass/Vol] 102 mg/dL High 65-99 [facility] Comment on above: Performed By: #### C DANIEL CBCA ####[facility] ([id number])[address] [place] [address] Potassium [Moles/Vol] 4.1 mmol/L Normal 3.5-5.0 [facility] Comment on above: Performed By: #### C DANIEL CBCA ####[facility] ([id number])[address], [address] [place] [address] Protein [Mass/Vol] 7.5 g/dL Normal 6.0-8.0 [facility] Comment on above: Performed By: #### C MP, CBCA ####[facility] ([id number])[address], [address] [address] Sodium [Moles/Vol] 143 mmol/L Normal 134-146 [facility] Comment on above: Performed By: #### C MP, CBCA ####[facility] ([id number])[address], [address] [place] [address] Urea nitrogen [Mass/Vol] 11 mg/dL Normal 5-23 [facility] Comment on above: Performed By: #### C MP, CBCA ####[facility] ([id number])[address], [address] [place] [address] DRUG SCREEN, URINEon 024 AMPHETAMINE/METHAMP Negative Normal NEG [facility] Comment on above: Result Comment: AMPH /METH screening cut off = 1000 ng/mL Performed By: #### D HIGGINS ####[facility] ([id number])[address], [address] [place] [address] BARBITURATES Negative Normal NEG [facility] Comment on above: Result Comment: Dominique iturates screening cut off value = 200 ng/mL Performed By: #### D HIGGINS ####[facility] ([id number])[address], [address] [place] [address] BENZODIAZEPINES Positive Abnormal NEG [facility] Comment on above: Result Comment: Conf irmation available upon request. Benzodiazepines screening cut off value = 200 ng/mL Performed By: #### D HIGGINS ####[facility] ([id number])[address], [address] [place] [address] CANNABINOIDS Positive Abnormal NEG [facility] Comment on above: Result Comment: Conf irmation available upon request. Cannabinoids/THC screening cut off value = 50 ng/mL Performed By: #### D HIGGINS ####[facility] ([id number])[address] [address], [place] [address] COCAINE METABOLITE Negative Normal NEG [facility] Comment on above: Result Comment: Coca ine screening cut off value = 300 ng/mL Performed By: #### D HIGGINS ####[facility] ([id number])[address], [place] [address] ECSTASY Negative Normal [facility] Comment on above: Result Comment: Ecst asy screening cut off value = 500 ng/mL This report is intended for use in clinical monitoring or management of patients. Performed By: #### D HIGGINS ####[facility] ([id number])[address], [address] [place] [address] METHADONE Negative Normal [facility] Comment on above: Result Comment: Meth adone screening cut off value = 300 ng/mL. Performed By: #### D HIGGINS ####[facility] ([id number])[address] [address] OPIATES Negative Normal [facility] Comment on above: Result Comment: Opia mamta screening cut off value = 300 ng/mL NOTE: This test is used for the detection of codeine, hydrocodone (>1000 ng/mL), morphine and hydromorphone (>900 ng/mL) in urine. Performed By: #### D HIGGINS ####[facility] ([id number])[address] [address] [place] [address] OXYCODONE Negative Normal [facility] Comment on above: Result Comment: Oxyc odone screening cut off value = 300 ng/mL NOTE: This test is used for the detection of oxycodone and oxymorphone in urine. Performed By: #### D HIGGINS ####[facility] ([id number])[address] [address] PHENCYCLIDINE Negative Normal NEG [facility] Comment on above: Result Comment: Phen cyclidine screening cut off value = 25 ng/mL Performed By: #### D HIGGINS ####[facility] ([id number])[address], [place] [address] Glucose Glucometer (BldC) [M ass/Vol]on 11-25-2023 Glucose [Mass/Vol] 89 mg/dL Normal 65-99 [facility] Glucose [Mass/Vol] 86 mg/dL Normal 65-99 [facility] MAGNESIUMon 11-25-2023 Magnesium [Mass/Vol] 2.1 mg/dL Normal 1.8-2.6 [facility] Comment on above: Performed By: #### 3 968-5, 58873-4 ####[facility] ([id number])[address], [address] [place] [address] Phenytoin [Mass/Vol]on 11-24 DILANTIN 22.1 ug/mL High 10.0-20.0 [facility] Comment on above: Performed By: #### 3 968-5, 72089-7 ####[facility] ([id number])[address], [address] [place] [address] cloBAZam and norclobazam nevarez loraine 11-25-2023 CLOBAZAM 62.2 ng/mL Normal 30-300 [facility] N-desmethylclobazam 232.0 ng/mL Low 300-3000 [facility] Comment on above: Result Comment: NOTE ADDITIONAL INFORMATION This test was developed and its performance characteristics determined by [facility] in a manner consistent with CLIA requirements. This test has not been cleared or approved by the U.S. Food and Drug Administration. Test Performed by: [facility] [address] [address] Fire Alarm Repairer: Daryn Hoskins M.D. Ph.D.; CLIA# [id number] lamoTRIgine [Mass/Vol]on Lamotrigine, S 4.5 mcg/mL Normal 3.0-15.0 [facility] Comment on above: Result Comment: NOTE ADDITIONAL INFORMATION This test was developed and its performance characteristics determined by [facility] in a manner consistent with CLIA requirements. This test has not been cleared or approved by the U.S. Food and Drug Administration. Test Performed by: [place] [address] Fire Alarm Repairer: Daryn Hoskins M.D. Ph.D.; CLIA# [id number] Performed By: #### 3 968-5, 99394-8 ####[facility] ([id number])[address] [place] [address], [address] [place] [address] Office Visiton 11-16-2023 Follow-up visit [id number] Juan Jose Kovacs 2000 F Date Provider Department Center 11/16/2023 [facility] No family history on file Level of Service:22734 [place] OFFICE/OUTPATIENT ESTABLISHED MOD MDM 30 MIN Reason for Visit and Comments: Follow-up [565362] Normal [facility] Patient Letteron 10-26-2023 Patient Letter [id number]#1.00OTG TIFF Normal [facility] Glucose Glucometer (BldC) [M ass/Vol]on 10-17-2023 Glucose [Mass/Vol] 78 mg/dL Normal 65-99 [facility] HCG ( test) Ql (U)o n 10-17-2023 Beta HCG ( test) Ql (U) Negative Normal NEG [facility] Comment on above: Performed By: #### 2 106-3 #### [facility] ([id number]) [address] [place] [address] BASIC METABOLIC PANLon 10-09 Anion gap [Moles/Vol] 7 mmol/L Normal 5-15 [facility] Comment on above: Performed By: #### B MP #### [facility] ([id number]) [address] [place] [address] Calcium [Mass/Vol] 9.0 mg/dL Normal 8.5-10.5 [facility] Comment on above: Performed By: #### B MP #### [facility] ([id number]) [address] [place] [address] Chloride [Moles/Vol] 106 mmol/L Normal 98-109 [facility] Comment on above: Performed By: #### B MP #### [facility] ([id number]) [address] [place] [address] CO2 [Moles/Vol] 25 mmol/L Normal 22-32 [facility] Comment on above: Performed By: #### B MP #### [facility] ([id number]) [address] [place] [address] Creatinine [Mass/Vol] 0.81 mg/dL Normal 0.40-1.00 [facility] Comment on above: Result Comment: METH OD TRACEABLE TO IDMS STANDARD Performed By: #### B MP #### [facility] ([id number]) [address] [place] [address] eGFR (CKD-EPI) NON-RACE DEPENDENT >90 Normal >59 [facility] Comment on above: Result Comment: Reported eGFR is based on the CKD-EPI 2020 equation that does not use a race coefficient. Performed By: #### B MP #### [facility] ([id number]) [address] [place] [address] Glucose [Mass/Vol] 103 mg/dL High 65-99 [facility] Comment on above: Performed By: #### B MP #### [facility] ([id number]) [address] [place] [address] Potassium [Moles/Vol] 3.6 mmol/L Normal 3.5-5.0 [facility] Comment on above: Performed By: #### B MP #### [facility] ([id number]) [address] [place] [address] Sodium [Moles/Vol] 138 mmol/L Normal 134-146 [facility] Comment on above: Performed By: #### B MP #### [facility] ([id number]) [address] [place] [address] Urea nitrogen [Mass/Vol] 12 mg/dL Normal 5-23 [facility] Comment on above: Performed By: #### B MP #### [facility] ([id number]) [address] [place] [address] URINALYSISon 10-10-2023 Bilirubin Ql (U) Negative Normal NEG [facility] BLOOD/HGB MODERATE Abnormal NEG [facility] CA OXALATE CRYSTALS PRESENT Abnormal [facility] Color (U) YELLOW Normal YELLOW [facility] Glucose Ql (U) Negative Normal NEG [facility] Ketones Ql (U) Negative Normal NEG [facility] Leukocyte esterase Test strip Ql (U) Negative Normal NEG [facility] MUCOUS PRESENT Abnormal [facility] Nitrite Ql (U) Negative Normal NEG [facility] pH (U) 7.0 [pH] Normal 5.0-8.5 [facility] Protein Ql (U) Trace Abnormal NEG [facility] R.B.CELLS 3 /hpf Normal 0-5 [facility] Specific gravity (U) [Rel density] 1.024 Normal 1.003-1.035 [facility] SQUAMOUS EPITHELIUM 8 /hpf High 0-5 [facility] TURBIDITY CLEAR Normal CLEAR [facility] Urobilinogen (U) [Mass/Vol] mg/dL Normal <1.1 [facility] W.B.CELLS 3 /hpf Normal 0-5 [facility] URINE CULTUREon 10-10-2023 Bacteria identified Cx Nom (U) CULTURE RESULTS <10,000 ORGANISMS/ML NORMAL URO GENITAL ZANDER Normal [facility] Comment on above: Performed By: #### 6 30-4 #### [facility] ([id number]) [address] [place] [address] Patient Handouton 09-28-2023 Patient Handout [id number]#1.00OTGTI FF Normal [facility] Patient Handouton 09-27-2023 Patient Handout [id number]#1.00OTGTIF F Normal [facility] Patient Handout [id number]#1.00OTGTI FF Normal [facility] THYROID PROFILEon 09-27-2023 Free T4 [Mass/Vol] 1.17 ng/dL Normal 0.61-1.60 [facility] Comment on above: Performed By: #### T HYR ####[facility] ([id number])[address], [address] [place] [address] [id number] TSH 0.74 uIU/mL Normal 0.49-4.67 [facility] Comment on above: Performed By: #### T HYR ####[facility] ([id number])[address], [address] [place] [address] [id number] US PELVIC COMPLETEon 024 US PELVIC COMPLETE US PELVIC COMPLETE PELVIC ULTRASOUND HISTORY: Cyst of ovary COMPARISON: CT abdomen/pelvis 07/29/2023 TECHNIQUE: Transabdominal imaging only was performed. FINDINGS: The uterus measures 7.3 x 3.7 x 4.4 cm. The endometrium measures 0.6 cm in thickness. The right ovary measures 3.8 x 2.4 x 2.6 cm and the left ovary measures 4.0 x 2.0 x 2.5 cm. The ovaries are normal. There are a few normal-sized follicles in the left ovary. Previously seen larger cyst in the left ovary on CT not visible today. No free fluid in the pelvis. IMPRESSION: Normal transabdominal pelvic ultrasound. Specifically, interval resolution of previously seen left ovarian cyst. Finalized by Julio Cesar Nation MD on 09/23/2023 5:03 PM Normal [facility] XR LUMBAR SPINE AP, LATERAL, FLEXION AND EXTENSION ONLYon 09-20-2023 XR LUMBAR SPINE AP, LATERAL, FLEXION AND EXTENSION ONLY XR LUMBAR SPINE AP, LATERAL, FLEXION AND EXTENSION ONLY XR LUMBAR SPINE AP, LATERAL, FLEXION AND EXTENSION ONLY Clinical history:Low back pain, unspecified back pain laterality, unspecified chronicity, unspecified whether sciatica present Comparison: None. Findings: There is a large neck less overlying the lower thoracic spine compromising assessment. There is no obvious vertebral body height loss. No significant movement with flexion or extension. Impression: No evident acute ossific abnormality with fairly unremarkable appearance of the lumbar spine within the limitations of this examination. Finalized by Nahun Strange MD on 09/20/2023 11:39 AM Normal [facility] POCT , urineon 08-26 Beta HCG ( test) Ql (U) Negative [facility] POCT , urineon 08-25 Beta HCG ( test) Ql (U) Negative [facility] Internal [employer] Technician Check Completed and Passed Yes [facility] Interpretation and review of laboratory results Normal [facility] US RETROPERITONEAL COMPLETEo n 09-12-2023 US RETROPERITONEAL COMPLETE US RETROPERITONEAL COMPLETE US RETROPERITONEAL COMPLETE HISTORY: Left flank pain and hematuria COMPARISON: CT abdomen and pelvis 07/29/2023. Retroperitoneal ultrasound 07/26/2023 TECHNIQUE: Grayscale and color Doppler sonographic images of the urinary bladder and both kidneys. FINDINGS: Right kidney: * 9.7 x 5.2 x 5.1 cm * Normal echogenicity. * Multiple echogenic foci with twinkle artifact, largest in the midpole region measuring up to 3 mm. No collecting system dilatation. Left kidney: * 9.5 x 3.8 x 4.4 cm * Normal echogenicity. * Multiple echogenic foci with twinkle artifact, largest in the lower pole measuring 3 mm. No collecting system dilatation. The prevoid bladder measures 536 mL with mobile echogenic debris. Increased post void residual, measuring 347 mL. Bilateral ureteral jets visualized. IMPRESSION: * Bilateral renal calculi without collecting system dilatation. * Multiple echogenic debris within the urinary bladder. Most common etiologies include urinary stasis, urinary tract infection or blood products. * Increased post void residual measuring 347 mL. Approved by Resident Debbie Camacho MD on 09/12/2023 9:44 AM I, Nahun Strange MD have personally reviewed the image(s) and agree with and/or edited the report Finalized by Nahun Strange MD on 09/12/2023 1:24 PM Normal [facility] Reference Lab Test IDon 08-25 UROVYSION FOR BLADDER CANCER SEE COMMENTS 09/14/2023 09:40 AM Normal [facility] Comment on above: Result Comment: NOTE Test Result Flag Unit RefValue -- UroVysion (R) for Bladder Cancer Result Summary Negative Result No evidence of urothelial carcinoma. Interpretation See Note This test result does not rule out the possibility that the patient may have a low-grade (i.e. grade 1 or 2) non-invasive papillary urothelial carcinoma. Some patients with low grade non-invasive papillary urothelial carcinoma do not have abnormalities with this FISH test. ADDITIONAL INFORMATION Fluorescence in situ hybridization (FISH) with centromere probes for chromosomes 3 (D3Z1), 7(D7Z1), 17(D17Z1), and a locus specific probe for 9p21 ([employer] [place], [place]). This test has been modified from the jordan worker's instructions. Its performance characteristics were determined by [facility] in a manner consistent with CLIA requirements. This test has not been cleared or approved by the U.S. Food and Drug Administration. Reason for Referral Evaluate for urothelial carcinoma. Specimen Varies Source Urine, NOS Released By Marianne Bray M.D. Test Performed by: [address] [address] Fire Alarm Repairer: Daryn Hoskins M.D. Ph.D.; CLIA# [id number] Cytologyon 09-07-2023 Cytology Normal [facility] Comment on above: Result Comment: [facility] [place] [facility] [address] [place] [address] Cytology Consultation Patient Name:BHAVNA KOVACS:2000 (Age: 23)Gender:FTaken:09/07/2023eported:09/09/2023 11:03Physician(s):Enriqueta Tse PA-C ([phone])Copy To: Rec. #:[id number]: #[id number] Final Cytologic Diagnosis Urine: Negative for high-grade urothelial cell carcinoma. [facility]/09/09/2023 Interpretation performed at [facility], [address] [place] [address], License number: [id number].Electronically Signed Out By Boom Holguin MD Clinical History Gross hematuria R31.0 Gross Description Received was 60mL of cloudy yellow fluid unfixed labeled as Bethanie, Urine per specimen requisition . 30mL used for Cytology. 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 [employer] Fee Code(s): 1; 90805 POCT Urinalysis Auto Onlyon 09-07-2023 External Poct Urine Blood Trace [facility] External Poct Urine Glucose Negative [facility] External Poct Urine Ketones Negative [facility] External Poct Urine Leukocyte Esterase Negative [facility] External Poct Urine Nitrite Negative [facility] External Poct Urine Ph 7.0 [facility] External Poct Urine Protein Negative [facility] Interpretation and review of laboratory results Abnormal [facility] URINE CULTUREon 09-07-2023 Bacteria identified Cx Nom (U) SPECIMEN NOTES URINE RECEIVED WITHOUT PRESERVATIVE CULTURE RESULTS <10,000 ORGANISMS/ML NORMAL URO GENITAL ZANDER Normal [facility] Comment on above: Performed By: #### 6 30-4 #### [facility] ([id number]) [address], [address] [place] [address] BASIC METABOLIC PANLon 08-25 Anion gap [Moles/Vol] 7 mmol/L Normal 5-15 [facility] Comment on above: Performed By: #### C BCA, BMP #### [facility] ([id number]) [address], [address] [place] [address] Calcium [Mass/Vol] 8.5 mg/dL Normal 8.5-10.5 [facility] Comment on above: Performed By: #### C BCA, BMP #### [facility] ([id number]) [address], [address] [place] [address] Chloride [Moles/Vol] 107 mmol/L Normal 98-109 [facility] Comment on above: Performed By: #### C BCA, BMP #### [facility] ([id number]) [address], [address] [place] [address] CO2 [Moles/Vol] 27 mmol/L Normal 22-32 [facility] Comment on above: Performed By: #### C BCA, BMP #### [facility] ([id number]) [address] [address] [place] [address] Creatinine [Mass/Vol] 0.73 mg/dL Normal 0.40-1.00 [facility] Comment on above: Result Comment: METH OD TRACEABLE TO IDMS STANDARD Performed By: #### C BCA, BMP #### [facility] ([id number]) [address] [address] [place] [address] eGFR (CKD-EPI) NON-RACE DEPENDENT >90 Normal >59 [facility] Comment on above: Result Comment: Reported eGFR is based on the CKD-EPI 2020 equation that does not use a race coefficient. Performed By: #### C SLAVA, BMP #### [facility] ([id number]) [address], [address] [place] [address] Glucose [Mass/Vol] 79 mg/dL Normal 65-99 [facility] Comment on above: Performed By: #### C BCA, BMP #### [facility] ([id number]) [address], [address] [place] [address] Potassium [Moles/Vol] 3.3 mmol/L Low 3.5-5.0 [facility] Comment on above: Performed By: #### C SLAVA, BMP #### [facility] ([id number]) [address] [place] [address] Sodium [Moles/Vol] 141 mmol/L Normal 134-146 [facility] Comment on above: Performed By: #### C SLAVA, BMP #### [facility] ([id number]) [address] [place] [address] Urea nitrogen [Mass/Vol] 8 mg/dL Normal 5-23 [facility] Comment on above: Performed By: #### C SLAVA, BMP #### [facility] ([id number]) [address], [address] [place] [address] CBC AND AUTO DIFFon 08-26-19 24 ABSOLUTE BASOPHIL 0.0 X10E9/L Normal 0.0-0.2 [facility] Comment on above: Performed By: #### C SLAVA, BMP #### [facility] ([id number]) [address] [place] [address] ABSOLUTE NEUTROPHIL 2.7 X10E9/L Normal 1.5-6.6 [facility] Comment on above: Performed By: #### C SLAVA, BMP #### [facility] ([id number]) [address], [address] [place] [address] Basophils/100 WBC (Bld) 0.6 % Normal [facility] Comment on above: Performed By: #### C BCA, BMP #### [facility] ([id number]) [address] [place] [address] Eosinophils (Bld) [#/Vol] 0.1 10*3/uL Normal 0.0-0.4 [facility] Comment on above: Performed By: #### C BCA, BMP #### [facility] ([id number]) [address], [address] [place] [address] Eosinophils/100 WBC (Bld) 2.3 % Normal [facility] Comment on above: Performed By: #### C SLAVA, BMP #### [facility] ([id number]) [address], [facility] [address] [place] [address] Erythrocyte distribution width (RBC) [Ratio] 13.9 % Normal 11.5-15.0 [facility] Comment on above: Performed By: #### C SLAVA, BMP #### [facility] ([id number]) [address], [facility] [address] [place] [address] Hematocrit (Bld) [Volume fraction] 33.1 % Low 35-47 [facility] Comment on above: Performed By: #### C BCA, BMP #### [facility] ([id number]) [address], [facility] [address] [place] [address] Hemoglobin (Bld) [Mass/Vol] 11.1 g/dL Low 11.7-15.5 [facility] Comment on above: Performed By: #### C BCA, BMP #### [facility] ([id number]) [address] [address] [place] [address] Lymphocytes (Bld) [#/Vol] 2.0 10*3/uL Normal 1.0-3.5 [facility] Comment on above: Performed By: #### C BCA, BMP #### [facility] ([id number]) [address] [place] [address] Lymphocytes/100 WBC (Bld) 36.7 % Normal [facility] Comment on above: Performed By: #### C BCA, BMP #### [facility] ([id number]) [address] [place] [address] MCH (RBC) [Entitic mass] 28.7 pg Normal 27-34 [facility] Comment on above: Performed By: #### C SLAVA, BMP #### [facility] ([id number]) [address] [place] [address] MCHC (RBC) [Mass/Vol] 33.4 g/dL Normal 32-36 [facility] Comment on above: Performed By: #### C SLAVA, BMP #### [facility] ([id number]) [address] [place] [address] MCV (RBC) [Entitic vol] 86 fL Normal 80-100 [facility] Comment on above: Performed By: #### C SLAVA, BMP #### [facility] ([id number]) [address] [place] [address] Monocytes (Bld) [#/Vol] 0.6 10*3/uL Normal 0-0.9 [facility] Comment on above: Performed By: #### C SLAVA, BMP #### [facility] ([id number]) [address] [place] [address] Monocytes/100 WBC (Bld) 10.4 % Normal [facility] Comment on above: Performed By: #### C SLAVA, BMP #### [facility] ([id number]) [address] [place] [address] Neutrophils/100 WBC (Bld) 50.0 % Normal [facility] Comment on above: Performed By: #### C BCA, BMP #### [facility] ([id number]) [address] [place] [address] Platelet mean volume (Bld) [Entitic vol] 8.1 fL Normal 7-12 [facility] Comment on above: Performed By: #### Kristen PEDERSEN, BMP #### [facility] ([id number]) [address] [place] [address] Platelets (Bld) [#/Vol] 184 10*3/uL Normal 150-450 [facility] Comment on above: Performed By: #### Kristen PEDERSEN, BMP #### [facility] ([id number]) [address] [place] [address] RBC COUNT 3.86 X10E12/L Normal 3.80-5.20 [facility] Comment on above: Performed By: #### Kristen PEDERSEN, BMP #### [facility] ([id number]) [address] [place] [address] WBC (Bld) [#/Vol] 5.4 10*3/uL Normal 4.0-11.0 [facility] Comment on above: Performed By: #### Kristen PEDERSEN, BMP #### [facility] ([id number]) [address] [place] [address] Glucose Glucometer (dC) [M ass/Vol]on 08-26-2023 Glucose [Mass/Vol] 108 mg/dL High 65-99 [facility] Glucose [Mass/Vol] 80 mg/dL Normal 65-99 [facility] Glucose [Mass/Vol] 83 mg/dL Normal 65-99 [facility] CBC AND AUTO DIFFon 08-25-19 24 ABSOLUTE BASOPHIL 0.0 X10E9/L Normal 0.0-0.2 [facility] Comment on above: Performed By: #### C MP, CBCA, 82218-4, 12107-8 #### [facility] ([id number]) [address] [place] [address] ABSOLUTE NEUTROPHIL 5.9 X10E9/L Normal 1.5-6.6 [facility] Comment on above: Performed By: #### C MP, CBCA, , #### [facility] ([id number]) [address] [place] [address] Basophils/100 WBC (Bld) 0.4 % Normal [facility] Comment on above: Performed By: #### C MP, CBCA, , #### [facility] ([id number]) [address] [place] [address] Eosinophils (Bld) [#/Vol] 0.0 10*3/uL Normal 0.0-0.4 [facility] Comment on above: Performed By: #### C MP, CBCA, , #### [facility] ([id number]) [address] [place] [address] Eosinophils/100 WBC (Bld) 0.5 % Normal [facility] Comment on above: Performed By: #### C MP, CBCA, , #### [facility] ([id number]) [address] [place] [address] Erythrocyte distribution width (RBC) [Ratio] 14.0 % Normal 11.5-15.0 [facility] Comment on above: Performed By: #### C MP, CBCA, , #### [facility] ([id number]) [address] [place] [address] Hematocrit (Bld) [Volume fraction] 39.6 % Normal 35-47 [facility] Comment on above: Performed By: #### C MP, CBCA, , #### [facility] ([id number]) [address] [place] [address] Hemoglobin (Bld) [Mass/Vol] 13.3 g/dL Normal 11.7-15.5 [facility] Comment on above: Performed By: #### C MP, CBCA, , #### [facility] ([id number]) [address] [place] [address] Lymphocytes (Bld) [#/Vol] 2.1 10*3/uL Normal 1.0-3.5 [facility] Comment on above: Performed By: #### C DANIEL, CBCA, , #### [facility] ([id number]) [address] [place] [address] Lymphocytes/100 WBC (Bld) 23.6 % Normal [facility] Comment on above: Performed By: #### C MP, CBCA, , #### [facility] ([id number]) [address] [place] [address] MCH (RBC) [Entitic mass] 28.6 pg Normal 27-34 [facility] Comment on above: Performed By: #### C DANIEL, CBCA, , #### [facility] ([id number]) [address] [place] [address] MCHC (RBC) [Mass/Vol] 33.6 g/dL Normal 32-36 [facility] Comment on above: Performed By: #### C MP, CBCA, , #### [facility] ([id number]) [address] [place] [address] MCV (RBC) [Entitic vol] 85 fL Normal 80-100 [facility] Comment on above: Performed By: #### C MP, CBCA, , 75560-7 #### [facility] ([id number]) [address] [place] [address] Monocytes (Bld) [#/Vol] 0.8 10*3/uL Normal 0-0.9 [facility] Comment on above: Performed By: #### C MP, CBCA, , #### [facility] ([id number]) [address] [place] [address] Monocytes/100 WBC (Bld) 9.3 % Normal [facility] Comment on above: Performed By: #### C MP, CBCA, , #### [facility] ([id number]) [address] [place] [address] Neutrophils/100 WBC (Bld) 66.2 % Normal [facility] Comment on above: Performed By: #### C MP, CBCA, , #### [facility] ([id number]) [address] [place] [address] Platelet mean volume (Bld) [Entitic vol] 7.9 fL Normal 7-12 [facility] Comment on above: Performed By: #### C MP, CBCA, , 17511-4 #### [facility] ([id number]) [address] [place] [address] Platelets (Bld) [#/Vol] 234 10*3/uL Normal 150-450 [facility] Comment on above: Performed By: #### C MP, CBCA, , #### [facility] ([id number]) [address] [place] [address] RBC COUNT 4.65 X10E12/L Normal 3.80-5.20 [facility] Comment on above: Performed By: #### C MP, CBCA, 69629-1, #### [facility] ([id number]) [address] [place] [address] WBC (Bld) [#/Vol] 8.9 10*3/uL Normal 4.0-11.0 [facility] Comment on above: Performed By: #### C DANIEL, CBCA, , #### [facility] ([id number]) [address] [place] [address] COMPREHENSIVE METABOLIC PANE Basim 08-25-2023 Albumin [Mass/Vol] 4.7 g/dL Normal 3.2-5.3 [facility] Comment on above: Performed By: #### C DANIEL, CBCA, , #### [facility] ([id number]) [address] [place] [address] ALP [Catalytic activity/Vol] 57 U/L Normal 39-130 [facility] Comment on above: Performed By: #### C DANIEL, CBCA, , #### [facility] ([id number]) [address] [place] [address] ALT [Catalytic activity/Vol] 11 U/L Normal 0-31 [facility] Comment on above: Performed By: #### C DANIEL, CBCA, , #### [facility] ([id number]) [address] [place] [address] Anion gap [Moles/Vol] 12 mmol/L Normal 5-15 [facility] Comment on above: Performed By: #### C DANIEL, CBCA, , #### [facility] ([id number]) [address] [place] [address]274 AST [Catalytic activity/Vol] 34 U/L Normal 0-41 [facility] Comment on above: Performed By: #### C DANIEL, CBCA, , #### [facility] ([id number]) [address] [place] [address] Bilirubin [Mass/Vol] 0.9 mg/dL Normal 0.3-1.2 [facility] Comment on above: Performed By: #### C DANIEL, CBCA, , #### [facility] ([id number]) [address] [place] [address] Calcium [Mass/Vol] 9.0 mg/dL Normal 8.5-10.5 [facility] Comment on above: Performed By: #### C DANIEL, CBCA, , #### [facility] ([id number]) [address] [place] [address] Chloride [Moles/Vol] 101 mmol/L Normal 98-109 [facility] Comment on above: Performed By: #### C DANIEL CBCJesús, , #### [facility] ([id number]) [address] [place] [address] CO2 [Moles/Vol] 24 mmol/L Normal 22-32 [facility] Comment on above: Performed By: #### C DANIEL CBCA, , #### [facility] ([id number]) [address] [place] [address]377 Creatinine [Mass/Vol] 0.93 mg/dL Normal 0.40-1.00 [facility] Comment on above: Result Comment: METH OD TRACEABLE TO IDMS STANDARD Performed By: #### C DANIEL, CBCA, , #### [facility] ([id number]) [address] [place] [address]27 GFR/1.73 sq M.predicted among non-blacks MDRD (S/P/Bld) [Vol rate/Area] 89 mL/min/{1.73_m2} Normal >59 [facility] Comment on above: Result Comment: Reported eGFR is based on the CKD-EPI 2020 equation that does not use a race coefficient. Performed By: #### C JAILYN SANCHEZ, , #### [facility] ([id number]) [address] [place] [address]47 Glucose [Mass/Vol] 102 mg/dL High 65-99 [facility] Comment on above: Performed By: #### C JAILYN SANCHEZ, , #### [facility] ([id number]) [address] [place] [address]761 Potassium [Moles/Vol] 3.1 mmol/L Low 3.5-5.0 [facility] Comment on above: Performed By: #### C JAILYN SANCHEZ, , #### [facility] ([id number]) [address] [place] [address] 00957 Protein [Mass/Vol] 7.8 g/dL Normal 6.0-8.0 [facility] Comment on above: Performed By: #### C JAILYN SANCHEZ, , #### [facility] ([id number]) [address] [place] [address] 80657 Sodium [Moles/Vol] 137 mmol/L Normal 134-146 [facility] Comment on above: Performed By: #### C JAILYN SANCHEZ, , #### [facility] ([id number]) [address] [place] [address]54 Urea nitrogen [Mass/Vol] 9 mg/dL Normal 5-23 [facility] Comment on above: Performed By: #### C JAILYN SANCHEZ, , #### [facility] ([id number]) [address] [place] [address], [place] [address] CT BRAIN WO CONTon CT BRAIN WO CONT CT BRAIN WO CONT Exam: CT brain without contrast. CLINICAL HISTORY: Seizure, head trauma TECHNIQUE: CT brain without intravenous contrast. COMPARISON: CT 01/03/2021 FINDINGS: There is no evidence of acute intracranial bleeding, mass effect, or CT evidence of acute ischemia/infarct. The midline structures are intact, no midline shift. The ventricles and basal cisterns are within normal limits. The brainstem and cerebellum are unremarkable. The visualized intraorbital contents are unremarkable. The paranasal sinuses and mastoid air cells are well aerated. No acute osseous abnormality in the visualized skull base and calvarium. IMPRESSION: No acute intracranial pathology. All CT scans at this facility use dose modulation, iterative reconstruction, and/or weight based dosing when appropriate to reduce radiation dose to as low as reasonably achievable. Finalized by Jean Marie Tanner on 08/25/2023 3:46 PM Normal [facility] CT CERVICAL SPINE WO CONTon 08-25-2023 CT CERVICAL SPINE WO CONT CT CERVICAL SPINE WO CONT CT CERVICAL SPINE WITHOUT CONTRAST COMPARISON: 10/25/2020 HISTORY: Injury and pain. TECHNIQUE: Unenhanced axial images of the cervical spine obtained with sagittal and coronal 2-D reformatted images. Automatic exposure control (AEC) was utilized. FINDINGS: Alignment is normal. The visualized paranasal sinuses and mastoid air cells are well aerated. The base of the skull is normal. Craniocervical junction is normal. There are no acute fractures or subluxations seen. The lung apices are normal. The prevertebral soft tissues are unremarkable IMPRESSION: No acute fracture or subluxation. All CT scans at this facility use dose modulation, iterative reconstruction, and/or weight based dosing when appropriate to reduce radiation dose to as low as reasonably achievable. Finalized by Tamika Mckeon DO on 08/25/2023 5:02 PM Normal [facility] Lactate (P miguelina) [Moles/Vol]o n 08-25-2023 LACTATE W/REFLEX 1.5 mmol/L Normal 0.4-2.0 [facility] Comment on above: Result Comment: Result did not trigger repeat Lactate, re-order if needed. Performed By: #### C MP, CBCA, 38220-6, 81594-8 #### [facility] ([id number]) [address] [place] [address] MAGNESIUMon 08-25-2023 Magnesium [Mass/Vol] 2.2 mg/dL Normal 1.8-2.6 [facility] Comment on above: Performed By: #### C MP, CBCA, 74637-8, 52035-4 #### [facility] ([id number]) [address] [place] [address] XR ELBOW RT MIN 3 VWSon 07-29 XR ELBOW RT MIN 3 VWS XR ELBOW RT MIN 3 VWS XR ELBOW RT MIN 3 VWS INDICATION: Fall, pain COMPARISON: None FINDINGS: No acute fracture or dislocation. Joints are in proper anatomic alignment. Soft tissues are unremarkable. No joint effusion. IMPRESSION: No acute osseous abnormality of the right elbow Finalized by Jean Marie Tanner on 08/25/2023 3:50 PM [facility] Electrophysiology Consult Note Reason for visit: event [...] to male transgender FMH- Maternal grandmother early [place]- 30's, Maternal grandfather- early [place] in 40's Allergies-none Home meds-Effexor and testosterone injections Per Dr. Esparza 09/23/20 HPI: 20-year-old patient with a history of seizure disorder was recently seen by Ms. Bruce for complaints of palpitations. He states that he has felt them quite often and was significantly bothered by it on August 10 that he went to [facility]. EKG that performed shows evidence of sinus [...] history Family medical history-paternal grandfather of an [place] at 46 years of age, paternal uncle CAD, sister with SVT, grandmother A. fib Social-never smoker, admits occasional alcohol about once or twice a year, daily marijuana use PMH: No past medical history on file. PSH: No past surgical history on file. SH: Social Determinants of Health Tobacco Use: Low Risk (06/17/2023) Patient History Smoking Tobacco Use: Never Smokeless [...] on file Housing Stability: Not on file Utilities: Not on file Allergies: Allergies Allergen Reactions Codeine Hives and Itching Weight: No weight available Visit Vitals BP 121/82 Pulse 64 Resp 15 SpO2 100% Smoking Status Never Meds: No current facility-administered medications on file prior to encounter. Current Outpatient Medications on File Prior to Encounter Medication Sig Dispense Refill Briviact 50 mg tablet tablet TAKE 1 TABLET BY MOUTH IN THE MORNING and ONE TABLET BY MOUTH BEFORE bedtime cloBAZam (Onfi) 10 mg tablet TAKE 0.5 TABLETS BY MOUTH AT BEDTIME lamoTRIgine (LaMICtal) 100 mg tablet Take 100 mg by mouth twice a day. midodrine (Proamatine) 5 mg tablet Take 1 tablet (5 mg) by mouth in the morning, at noon, and at bedtime. 270 tablet 3 [DISCONTINUED] carBAMazepine (TEGretol) 200 mg tablet Take 200 mg by mouth every 8 (eight) hours. [DISCONTINUED] levETIRAcetam (Keppra) 1,000 mg tablet Take 1,000 mg by mouth twice a day. ROS: Cardio Basic Cardiovascular Symptoms: no lightheadedness, [...] apnea Musculoskeletal Musculoskeletal: no muscle aches, no (more content not included)... Normal [facility] NURSNOTEon 08-03-2023 NURSNOTE RN educated pt on d/ c instructions. RN encouraged pt to voice any questions or concerns. Pt verbalizes no questions or concerns at this time. Pt was wheeled off of unit with all of belongings. Normal [facility] CBC AND AUTO DIFFon 07-28-19 24 ABSOLUTE BASOPHIL 0.0 X10E9/L Normal 0.0-0.2 [facility] Comment on above: Performed By: #### C MP, CBCA #### [facility] ([id number]) [address] [place] [address]33 ABSOLUTE NEUTROPHIL 3.2 X10E9/L Normal 1.5-6.6 [facility] Comment on above: Performed By: #### C MP, CBCA #### [facility] ([id number]) [address] [place] [address] 24818 Basophils/100 WBC (Bld) 0.7 % Normal [facility] Comment on above: Performed By: #### C MP, CBCA #### [facility] ([id number]) [address] [place] [address] 79766 Eosinophils (Bld) [#/Vol] 0.1 10*3/uL Normal 0.0-0.4 [facility] Comment on above: Performed By: #### C MP, CBCA #### [facility] ([id number]) [address] [place] [address] 30886 Eosinophils/100 WBC (Bld) 0.8 % Normal [facility] Comment on above: Performed By: #### C MP, CBCA #### [facility] ([id number]) [address] [place] [address] 80844 Erythrocyte distribution width (RBC) [Ratio] 14.3 % Normal 11.5-15.0 [facility] Comment on above: Performed By: #### C MP, CBCA #### [facility] ([id number]) [address] [place] [address] 84916 Hematocrit (Bld) [Volume fraction] 39.8 % Normal 35-47 [facility] Comment on above: Performed By: #### C MP, CBCA #### [facility] ([id number]) [address] [place] [address] 03582 Hemoglobin (Bld) [Mass/Vol] 13.4 g/dL Normal 11.7-15.5 [facility] Comment on above: Performed By: #### C MP, CBCA #### [facility] ([id number]) [address] [place] [address] 39247 Lymphocytes (Bld) [#/Vol] 3.1 10*3/uL Normal 1.0-3.5 [facility] Comment on above: Performed By: #### C MP, CBCA #### [facility] ([id number]) [address] [place] [address] 65426 Lymphocytes/100 WBC (Bld) 44.5 % Normal [facility] Comment on above: Performed By: #### C MP, CBCA #### [facility] ([id number]) [address] [place] [address] 65042 MCH (RBC) [Entitic mass] 28.3 pg Normal 27-34 [facility] Comment on above: Performed By: #### C MP, CBCA #### [facility] ([id number]) [address] [place] [address] 50411 MCHC (RBC) [Mass/Vol] 33.8 g/dL Normal 32-36 [facility] Comment on above: Performed By: #### C MP, CBCA #### [facility] ([id number]) [address] [place] [address] 54226 MCV (RBC) [Entitic vol] 84 fL Normal 80-100 [facility] Comment on above: Performed By: #### C MP, CBCA #### [facility] ([id number]) [address] [place] [address] 67009 Monocytes (Bld) [#/Vol] 0.6 10*3/uL Normal 0-0.9 [facility] Comment on above: Performed By: #### C MP, CBCA #### [facility] ([id number]) [address] [place] [address] 05831 Monocytes/100 WBC (Bld) 8.1 % Normal [facility] Comment on above: Performed By: #### C MP, CBCA #### [facility] ([id number]) [address] [place] [address] 01890 Neutrophils/100 WBC (Bld) 45.9 % Normal [facility] Comment on above: Performed By: #### C MP, CBCA #### [facility] ([id number]) [address] [place] [address] 69270 Platelet mean volume (Bld) [Entitic vol] 8.0 fL Normal 7-12 [facility] Comment on above: Performed By: #### C MP, CBCA #### [facility] ([id number]) [address] [place] [address] 27196 Platelets (Bld) [#/Vol] 270 10*3/uL Normal 150-450 [facility] Comment on above: Performed By: #### C MP, CBCA #### [facility] ([id number]) [address] [place] [address] 05095 RBC COUNT 4.75 X10E12/L Normal 3.80-5.20 [facility] Comment on above: Performed By: #### C MP, CBCA #### [facility] ([id number]) [address] [place] [address] 95985 WBC (Bld) [#/Vol] 7.0 10*3/uL Normal 4.0-11.0 [facility] Comment on above: Performed By: #### C MP, CBCA #### [facility] ([id number]) [address] [place] [address] 35816 COMPREHENSIVE METABOLIC PANE Basim 07-28-2023 Albumin [Mass/Vol] 4.8 g/dL Normal 3.2-5.3 [facility] Comment on above: Performed By: #### C DANIEL, CBCA #### [facility] ([id number]) [address] [place] [address] 14494 ALP [Catalytic activity/Vol] 55 U/L Normal 39-130 [facility] Comment on above: Performed By: #### C DANIEL, CBCA #### [facility] ([id number]) [address] [place] [address] 70086 ALT [Catalytic activity/Vol] 10 U/L Normal 0-31 [facility] Comment on above: Performed By: #### C DANIEL, CBCA #### [facility] ([id number]) [address] [place] [address] 23505 Anion gap [Moles/Vol] 7 mmol/L Normal 5-15 [facility] Comment on above: Performed By: #### C DANIEL, CBCA #### [facility] ([id number]) [address] [place] [address] 53829 AST [Catalytic activity/Vol] 18 U/L Normal 0-41 [facility] Comment on above: Performed By: #### C DANIEL, CBCA #### [facility] ([id number]) [address] [place] [address] 71981 Bilirubin [Mass/Vol] 0.3 mg/dL Normal 0.3-1.2 [facility] Comment on above: Performed By: #### C DANIEL, CBCA #### [facility] ([id number]) [address] [place] [address] 69162 Calcium [Mass/Vol] 9.3 mg/dL Normal 8.5-10.5 [facility] Comment on above: Performed By: #### C DANIEL, CBCA #### [facility] ([id number]) [address] [place] [address] 07110 Chloride [Moles/Vol] 102 mmol/L Normal 98-109 [facility] Comment on above: Performed By: #### C JAILYN SANCHEZ #### [facility] ([id number]) [address] [place] [address] 04908 CO2 [Moles/Vol] 29 mmol/L Normal 22-32 [facility] Comment on above: Performed By: #### C LUIS ALFREDO SANCHEZA #### [facility] ([id number]) [address] [place] [address] 65219 Creatinine [Mass/Vol] 0.73 mg/dL Normal 0.40-1.00 [facility] Comment on above: Result Comment: METH OD TRACEABLE TO IDMS STANDARD Performed By: #### C JAILYN SANCHEZ #### [facility] ([id number]) [address] [place] [address] [place] [address] eGFR (CKD-EPI) NON-RACE DEPENDENT >90 Normal >59 [facility] Comment on above: Result Comment: Reported eGFR is based on the CKD-EPI 2020 equation that does not use a race coefficient. Performed By: #### C JAILYN SANCHEZ #### [facility] ([id number]) [address] [place] [address] 81927 Glucose [Mass/Vol] 91 mg/dL Normal 65-99 [facility] Comment on above: Performed By: #### C JAILYN SANCHEZ #### [facility] ([id number]) [address] [place] [address] 14656 Potassium [Moles/Vol] 3.7 mmol/L Normal 3.5-5.0 [facility] Comment on above: Performed By: #### C LUIS ALFREDO SANCHEZA #### [facility] ([id number]) [address] [place] [address] 15818 Protein [Mass/Vol] 8.2 g/dL High 6.0-8.0 [facility] Comment on above: Performed By: #### C MP, CBCA #### [facility] ([id number]) [address] [place] [address] 74227 Sodium [Moles/Vol] 138 mmol/L Normal 134-146 [facility] Comment on above: Performed By: #### C MP, CBCA #### [facility] ([id number]) [address] [place] [address] [place] [address] Urea nitrogen [Mass/Vol] 9 mg/dL Normal 5-23 [facility] Comment on above: Performed By: #### C DANIEL, CBCA #### [facility] ([id number]) [address] [place] [address] [place] [address] URN MACROSCOPIC NURon 2023 BILIRUBIN MARISA Negative Normal NEG [facility] Comment on above: Performed By: #### N UM #### [facility] ([id number]) [address] [place] [address] [place] [address] BLOOD/HGB MARISA Negative Normal NEG [facility] Comment on above: Performed By: #### N UM #### [facility] ([id number]) [address] [place] [address] [place] [address] GLUCOSE MARISA Negative Normal NEG [facility] Comment on above: Performed By: #### N UM #### [facility] ([id number]) [address] [place] [address] [place] [address] KETONES MARISA Negative Normal NEG [facility] Comment on above: Performed By: #### N UM #### [facility] ([id number]) [address] [place] [address] [place] [address] LEUKOCYTE ESTERASE MARISA Negative Normal NEG [facility] Comment on above: Performed By: #### N UM #### [facility] ([id number]) [address] [place] [address] NITRITE MARISA Negative Normal NEG [facility] Comment on above: Performed By: #### N UM #### [facility] ([id number]) [address] [place] [address] 04106 PH MARISA 7.0 Normal 5.0-8.5 [facility] Comment on above: Performed By: #### N UM #### [facility] ([id number]) [address] [place] [address] 96594 PROTEIN MARISA Negative Normal NEG [facility] Comment on above: Performed By: #### N UM #### [facility] ([id number]) [address] [place] [address] 07611 SPECIFIC GRAVITY MARISA 1.015 Normal 1.003-1.035 [facility] Comment on above: Performed By: #### N UM #### [facility] ([id number]) [address] [place] [address] 13250 UROBILINOGEN MARISA 0.2 eu/dL Normal <1.1 [facility] Comment on above: Performed By: #### N UM #### [facility] ([id number]) [address] [place] [address] 56841 US RETROPERITONEAL COMPLETEo n 07-26-2023 US RETROPERITONEAL COMPLETE US RETROPERITONEAL COMPLETE US RETROPERITONEAL COMPLETE HISTORY: Renal calculus screening and follow-up. Difficulty voiding completely. COMPARISON: CT abdomen and pelvis with contrast 10/13/2021 TECHNIQUE: Grayscale and color Doppler sonographic images of the urinary bladder and both kidneys. FINDINGS: Right kidney: * 9.1 x 5.3 x 4.3 cm. Normal echogenicity. * Multiple echogenic foci with twinkle artifact, the largest in the mid pole region measuring 0.6 cm. No collecting system dilatation. Left kidney: * 9.5 x 3.7 x 3.8 cm. Normal echogenicity. * Multiple echogenic foci with twinkle artifact, the largest in the midpole region measuring 0.5 cm. No collecting system dilatation. The urinary bladder measures 735.8 mL prevoid. There is 317.3 mL post void residual. Bilateral ureteral jets visualized. IMPRESSION: * Bilateral nonobstructing renal calculi without hydronephrosis. * Increased post void residual, measuring 317.3 mL. Approved by Resident Roberto Phillips MD on 07/26/2023 1:33 PM Francisco Osorio have personally reviewed the image(s) and agree with and/or edited the report Finalized by Francisco Mojica on 07/26/2023 2:11 PM Normal [facility] URINALYSISon 07-22-2023 Bilirubin Ql (U) Negative Normal NEG [facility] BLOOD/HGB Small Abnormal NEG [facility] CA OXALATE CRYSTALS PRESENT Abnormal NONE [facility] Color (U) YELLOW Normal YELLOW [facility] Glucose Ql (U) Negative Normal NEG [facility] Ketones Ql (U) Negative Normal NEG [facility] Leukocyte esterase Test strip Ql (U) Negative Normal NEG [facility] MUCOUS PRESENT Abnormal NONE [facility] Nitrite Ql (U) Negative Normal NEG [facility] pH (U) 7.0 [pH] Normal 5.0-8.5 [facility] Protein Ql (U) Trace Abnormal NEG [facility] R.B.CELLS 13 /hpf High 0-5 [facility] Specific gravity (U) [Rel density] 1.018 Normal 1.003-1.035 [facility] SQUAMOUS EPITHELIUM 2 /hpf Normal 0-5 [facility] TURBIDITY CLEAR Normal CLEAR [facility] Urobilinogen (U) [Mass/Vol] mg/dL Normal <1.1 [facility] W.B.CELLS 3 /hpf Normal 0-5 [facility] XR ABDOMEN AP 1 VWon 024 XR [...] Rodney DO on 07/09/2023 12:02 PM Normal [facility] Office Visiton 06-17-2023 Follow-up visit [id number] Juan Jose Kovacs 2000 F Date Provider Department Center 06/17/2023 Carlyn-LUIS FERNANDO [facility] No family history on file Level of Service:24815 [place] OFFICE/OUTPATIENT ESTABLISHED MOD MDM 30 MIN Normal [facility] Alanine aminotransferase [En zymatic activity/volume] in Serum or PlasmaOrdered By: Luz Fiore on 05-12-2023 ALT [Catalytic activity/Vol] 8 U/L Normal 7-52 [facility] Comment on above: Performed By: #### C MP, CBC #### [facility] [address] [place] [address] [place] Albumin [Mass/volume] in Ser um or Plasma by Bromocresol green (BCG) dye binding methoOrdered By: Luz Fiore on 05-12-2023 Albumin BCG dye [Mass/Vol] 4.6 g/dL 3.5-5.7 [facility] Alkaline phosphatase [Enzyma tic activity/volume] in Serum or PlasmaOrdered By: Luz Fiore on 05-12-2023 ALP [Catalytic activity/Vol] 56 U/L Normal 34-104 [facility] Comment on above: Performed By: #### C MP, CBC #### [facility] [address] [place] [address] [place] Aspartate aminotransferase [ Enzymatic activity/volume] in Serum or PlasmaOrdered By: Luz Fiore on 05-12-2023 AST [Catalytic activity/Vol] 14 U/L Normal 13-39 [facility] Comment on above: Result Comment: PERF ORMED BY: [place] [address] PATHOLOGIST [employer] JOSE LUZ M.D. Performed By: #### R ISAIAS QUISPE ####[facility] [address] Automated basophil %Ordered By: Luz Fiore on 05-12-2023 Basophils/100 WBC (Bld) 0.5 % Normal . [facility] Comment on above: Performed By: #### C MP, CBC #### [address] Automated basophil countOrde red By: Luz Fiore on 05-12-2023 Basophils (Bld) [#/Vol] 0.0 10*3/uL Normal 0.0-0.2 [facility] Comment on above: Result Comment: PERF ORMED BY: [place] [address] PATHOLOGIST [employer] JOSE LUZ M.D. Performed By: #### C MP, CBC #### [address] Automated blood monocyte cou ntOrdered By: Luz Fiore on 05-12-2023 Monocytes (Bld) [#/Vol] 0.5 10*3/uL Normal 0.0-0.8 [facility] Comment on above: Performed By: #### C MP, CBC #### [facility] [address] [place] [address] Automated eosinophil %Ordere d By: Luz Fiore on 05-12-2023 Eosinophils/100 WBC (Bld) 0.5 % Normal . [facility] Comment on above: Performed By: #### C MP, CBC #### [address] Automated eosinophil countOr dered By: Luz Fiore on 05-12-2023 Eosinophils (Bld) [#/Vol] 0.0 10*3/uL Normal 0.0-0.45 [facility] Comment on above: Performed By: #### C MP, CBC #### [facility] [address] Automated erythrocytes count in urine sediment (number/area)Ordered By: Luz Adebayo on 05-12-2023 RBC Auto (Urine sed) [#/Area] 5-9 [HPF] 0-4 [facility] Automated leukocytes count i n urine sediment (number/area)Ordered By: Luz Fiore on 05-12-2023 WBC Auto (Urine sed) [#/Area] 5-9 [HPF] 0-4 [facility] Automated monocyte %Ordered By: Luzjennifer Fiore on 05-12-2023 Monocytes/100 WBC (Bld) 5.1 % Normal . [facility] Comment on above: Performed By: #### C MP, CBC #### [facility] [address] Automated neutrophil %Ordere d By: Luz Fiore on 05-12-2023 Neutrophils/100 WBC (Bld) 58.9 % Normal . [facility] Comment on above: Performed By: #### C MP, CBC #### [facility] [address] Automated urine color determ inationOrdered By: Luz Fiore on 05-12-2023 Color (U) Yellow Normal Yellow [facility] Comment on above: Order Comment: Name Collection Type:: Clean-Voided Midstream Performed By: #### A DDONUAPLUS, C ####[facility] Bilirubin Test strip Ql (U)O rdered By: Luz Fiore on 05-12-2023 Bilirubin Ql (U) Negative Negative [facility] Bilirubin.total [Mass/volume ] in Serum or PlasmaOrdered By: Luz Fiore on 05-12-2023 Bilirubin [Mass/Vol] 0.4 mg/dL Normal 0.3-1.0 [facility] Comment on above: Performed By: #### C MP, CBC #### [facility] [address] abdomen pelvis wo conon 1 07-12-2022 CT abdomen pelvis wo con [facility] [place] [address] [place] [address] CT Scan Report Signed Patient: Bhavna Kovacs MR#: [id number] : 2000 Acct:[id number] Age/Sex: 22 / F ADM Date: 05/12/23 [...] So Jr., D.O.05/12/2023 2:53 PM Dictation Location: [place] [address] Transcribed By: [facility] 05/12/23 1450 Dictated By: Aman So Jr, DO 05/12/23 1447 Signed By: 05/12/23 1458 Normal [facility] Calcium [Mass/volume] in Ser um or PlasmaOrdered By: Luz Fiore on 05-12-2023 Calcium [Mass/Vol] 9.4 mg/dL Normal 8.6-10.3 [facility] Comment on above: Performed By: #### C MP, CBC #### [address] Carbon dioxide, total [Moles /volume] in Serum or PlasmaOrdered By: Luz Fiore on 05-12-2023 CO2 [Moles/Vol] 28.5 mmol/L Normal 21.0-31.0 [facility] Comment on above: Performed By: #### C MP, CBC #### [address] Chloride [Moles/volume] in S alexis or PlasmaOrdered By: Luz Fiore on 05-12-2023 Chloride [Moles/Vol] 105 mmol/L Normal 98-107 [facility] Comment on above: Performed By: #### C MP, CBC #### [address] Complete Blood Count Auto Di ffon 05-12-2023 Mean Corpuscular HGB Conc 33.7 g/dL Normal 32.0-35.0 [facility] Comment on above: Performed By: #### C MP, CBC #### [place] [address] [place] Monocytes/100 WBC (Bld) 19.05 % Normal 0.00-20.00 [facility] Comment on above: Performed By: #### C MP, CBC #### [address] NRBC% 0.1 /100{WBC} Normal 0-0.5 [facility] Comment on above: Performed By: #### C MP, CBC #### [address] Comprehensive Metabolic Pane basim 05-12-2023 Albumin [Mass/Vol] 4.6 g/dL Normal 3.5-5.7 [facility] Comment on above: Performed By: #### C MP, CBC #### [address] Anion gap [Moles/Vol] Not performed Normal 6.0-15.0 [facility] Comment on above: Performed By: #### C MP, CBC #### [address] Aspartate Amino Transferase Normal 13-39 [facility] Comment on above: Result Comment: Spec imen hemolyzed, redraw requested Results called at 1459 on 05/12/23 Performed By: #### C MP, CBC #### [address] Creatinine Clr Calc Pharmacy 79.00 Normal [facility] Comment on above: Result Comment: PERF ORMED BY: [place] [address] PATHOLOGIST [employer] JOSE LUZ M.D. Performed By: #### C MP, CBC #### [address] GFR/1.73 sq M.predicted MDRD (S/P/Bld) [Vol rate/Area] mL/min/{1.73_m2} Normal [facility] Comment on above: Performed By: #### C MP, CBC #### [address] Potassium Normal 3.5-5.1 [facility] Comment on above: Result Comment: Spec imen hemolyzed, redraw requested Results called at 1459 on 05/12/23 Performed By: #### C MP, CBC #### [address] Creatinine [Mass/volume] in Serum or PlasmaOrdered By: Luz Fiore on 05-12-2023 Creatinine [Mass/Vol] 0.85 mg/dL Normal 0.60-1.20 [facility] Comment on above: Performed By: #### C MP, CBC #### [place] [address] [place] Dipstick and Microscopicon 1 07-12-2022 Appearance (U) Cloudy Critically abnormal Clear [facility] Comment on above: Order Comment: Name Collection Type:: Clean-Voided Midstream Performed By: #### A DDONUAPLUS, UHCG ####[place] [address] [place] [address] [facility] Bacteria,Urine 1+ High None Seen [facility] Comment on above: Order Comment: Name Collection Type:: Clean-Voided Midstream Performed By: #### A DDONUAPLUS, UHCG ####[address] [address] [facility] Bilirubin,Urine Negative Normal Negative [facility] Comment on above: Order Comment: Name Collection Type:: Clean-Voided Midstream Performed By: #### A DDONUAPLUS, UHCG ####[address] [address] [facility] Glucose Ql (U) Normal Normal Normal [facility] Comment on above: Order Comment: Name Collection Type:: Clean-Voided Midstream Performed By: #### A DDONUAPLUS, UHCG ####[address] [address] [facility] Hyaline Casts,Urine 0-8 Normal 0-8 [facility] Comment on above: Order Comment: Name Collection Type:: Clean-Voided Midstream Performed By: #### A DDONUAPLUS, UHCG ####[address] [address] [facility] Ketones Ql (U) Trace High Negative [facility] Comment on above: Order Comment: Name Collection Type:: Clean-Voided Midstream Performed By: #### A DDONUAPLUS, UHCG ####[address] [address] [facility] Leukocyte esterase Test strip Ql (U) Negative Normal Negative [facility] Comment on above: Order Comment: Name Collection Type:: Clean-Voided Midstream Performed By: #### A DDONUAPLUS, UHCG ####[facility] [place] [address] [facility] Nitrite,Urine Negative Normal Negative [facility] Comment on above: Order Comment: Name Collection Type:: Clean-Voided Midstream Performed By: #### A DDONUAPLUS, UHCG ####[address] [address] [facility] Occult Blood,Urine Trace High Negative [facility] Comment on above: Order Comment: Name Collection Type:: Clean-Voided Midstream Performed By: #### A DDONUAPLUS, UHCG ####[address] [address] [facility] Protein,Urine Negative Normal Negative [facility] Comment on above: Order Comment: Name Collection Type:: Clean-Voided Midstream Performed By: #### A DDONUAPLUS, UHCG ####[address] [address] [facility] RBC,Urine 5-9 High 0-4 [facility] Comment on above: Order Comment: Name Collection Type:: Clean-Voided Midstream Performed By: #### A DDONUAPLUS, UHCG ####[address] [address] [facility] Specificy [place],Urine 1.022 Normal 1.001-1.030 [facility] Comment on above: Order Comment: Name Collection Type:: Clean-Voided Midstream Performed By: #### A DDONUAPLUS, UHCG ####[address] [address] [facility] Squamous Epithelial Cell,Urine 5-9 High 0-2 [facility] Comment on above: Order Comment: Name Collection Type:: Clean-Voided Midstream Performed By: #### A DDONUAPLUS, UHCG ####[address] [address] [facility] Urobilinogen,Urine Normal Normal Normal [facility] Comment on above: Order Comment: Name Collection Type:: Clean-Voided Midstream Performed By: #### A DDONUAPLUS, UHCG ####[address] [address] [place] WBC,Urine 5-9 High 0-4 [facility] Comment on above: Order Comment: Name Collection Type:: Clean-Voided Midstream Performed By: #### A DDONUAPLUS, CG ####[facility] Svt[address] ECG 12 lead ECGon 05-12-2023 ECG 12 lead ECG [facility] [address] [place] [address] [place] [address] Electrocardiograph Report Signed Patient: Bhavna Kovacs MR#: [id number] 668 : 2000 Acct:[id number] Age/Sex: 22 / F ADM Date: 05/12/23 [...] was found Confirmed by LUZ FIORE DO ([id number]) on 05/12/2023 2:57:31 PM Referred By: Electronically Signed By:LUZ FIORE DO Transcribed By: MUS Signed By Luz Fiore DO 05/12 1457 Normal [facility] Erythrocyte distribution wid th [Ratio] by Automated countOrdered By: Luz Fiore on 05-12-2023 Erythrocyte distribution width (RBC) [Ratio] 14.2 % Normal 11.9-15.3 [facility] Comment on above: Performed By: #### C MP, CBC #### [facility] [address] Erythrocytes [#/volume] in B lood by Automated countOrdered By: Luz Fiore on 05-12-2023 RBC (Bld) [#/Vol] 4.51 10*6/uL Normal 3.60-5.00 [facility] Comment on above: Performed By: #### C MP, CBC #### [address] Glucose [Mass/volume] in Ser um or PlasmaOrdered By: Luz Fiore on 05-12-2023 Glucose [Mass/Vol] 95 mg/dL Normal 70-100 [facility] Comment on above: ADA recommended refe rence rangeRandom Glucose Reference Range is dependent on time and content of last meal. Glucose of more than 200 mg/dL in a nonstressed, ambulatory subject supports the diagnosis of Diabetes Mellitus. Result Comment: [place] Glucose Reference Range is dependent on time and content of last meal. Glucose of more than 200 mg/dL in a nonstressed, ambulatory subject supports the diagnosis of Diabetes Mellitus. ADA recommended reference range Performed By: #### C MP, CBC #### [address] HCG ( test) IA.rapi d Ql (U)Ordered By: Luz Fiore on 05-12-2023 HCG ( test) Ql (U) Negative [facility] HCG,Urineon 05-12-2023 Beta HCG ( test) Ql (U) Negative Normal [facility] Comment on above: Order Comment: Name Collection Type:: Clean-Voided Midstream Result Comment: PERF ORMED BY: [place] [address] PATHOLOGIST [employer] JOSE LUZ M.D. Performed By: #### A DDONUAPLUS, [facility] ####[address] Hematocrit [Volume Fraction] of Blood by Automated countOrdered By: Luz Fiore on 05-12-2023 Hematocrit (Bld) [Volume fraction] 38.0 % Normal 34.0-46.4 [facility] Comment on above: Performed By: #### C MP, CBC #### [address] Hemoglobin [Mass/volume] in BloodOrdered By: Luz Fiore on 05-12-2023 Hemoglobin (Bld) [Mass/Vol] 12.8 g/dL Normal 11.8-15.4 [facility] Comment on above: Performed By: #### C MP, CBC #### [facility] [address] Ketones Auto test strip (U) [Mass/Vol]Ordered By: Luz Fiore on 05-12-2023 Ketones (U) [Mass/Vol] Trace Negative [facility] Laboratory - UrinalysisOrder ed By: Luz Fiore on 05-12-2023 Hyaline casts LM Ql (Urine sed) 0-8 [LPF] 0-8 [facility] Leukocytes [#/volume] correc manjula for nucleated erythrocytes in Blood by Automated counOrdered By: Luz Fiore on 05-12-2023 WBC corrected for nucl RBC Auto (Bld) [#/Vol] 9.1 10*3/uL 3.8-11.6 [facility] Leukocytes [#/volume] in Blo od by Automated countOrdered By: Luz Fiore on 05-12-2023 WBC (Bld) [#/Vol] 9.1 10*3/uL Normal 3.8-11.6 [facility] Comment on above: Performed By: #### C MP, CBC #### [facility] [address] [place] [address] [place] Lymphocytes [#/volume] in Bl ood by Automated countOrdered By: Luz Fiore on 05-12-2023 Lymphocytes (Bld) [#/Vol] 3.2 10*3/uL Normal 1.00-4.8 [facility] Comment on above: Performed By: #### C MP, CBC #### [facility] [address] [place] [address] [place] Lymphocytes/100 leukocytes i n Blood by Automated countOrdered By: Luz Fiore on 05-12-2023 Lymphocytes/100 WBC (Bld) 35.0 % Normal . [facility] Comment on above: Performed By: #### C MP, CBC #### [facility] [address] [place] [address] [place] MCH [Entitic mass] by Automa manjula countOrdered By: Luz Fiore on 05-12-2023 MCH (RBC) [Entitic mass] 28.4 pg Normal 24.7-34.3 [facility] Comment on above: Performed By: #### C MP, CBC #### [facility] [address] [place] [address] MCHC Auto (RBC) [Mass/Vol]Or dered By: Luz Fiore on 05-12-2023 MCHC (RBC) [Mass/Vol] 33.7 g/dL 32.0-35.0 [facility] MCV [Entitic volume] by Auto mated countOrdered By: Luz Fiore on 05-12-2023 MCV (RBC) [Entitic vol] 84.2 fL Normal 80-100 [facility] Comment on above: Performed By: #### C MP, CBC #### [facility] [address] [place] [address] Monocyte distribution width [Entitic volume] in Blood by AutomatedOrdered By: Luz Fiore on 05-12-2023 Monocyte distribution width Auto (Bld) [Entitic vol] 19.05 % 0.00-20.00 [facility] Neutrophils [#/volume] in Bl ood by Automated countOrdered By: Luz Fiore on 05-12-2023 Neutrophils (Bld) [#/Vol] 5.4 10*3/uL Normal 1.8-7.7 [facility] Comment on above: Performed By: #### C MP, CBC #### [facility] [address] [place] [address] Nitrite Test strip Ql (U)Ord ered By: Luz Fiore on 05-12-2023 Nitrite Ql (U) Negative Negative [facility] No Panel InformationOrdered By: Luz Fiore on 05-12-2023 Estimated GFR (CKD-EPI) > 60.0 mL/Min [facility] Creatinine Clearance (Chem 79.00 [facility] Nucleated erythrocytes [Pres ence] in Blood by Automated countOrdered By: Luz Fiore on 05-12-2023 Nucleated RBC Auto Ql (Bld) 0.1 /100{WBC} 0-0.5 [facility] Platelet mean volume [Entiti c volume] in Blood by Automated countOrdered By: Luz Fiore on 05-12-2023 Platelet mean volume (Bld) [Entitic vol] 7.6 fL Normal 6.3-10.7 [facility] Comment on above: Performed By: #### C MP, CBC #### [facility] [address] Platelets [#/volume] in Bloo d by Automated countOrdered By: Luz Fiore on 05-12-2023 Platelets (Bld) [#/Vol] 280 10*3/uL Normal 150-450 [facility] Comment on above: Performed By: #### C MP, CBC #### [address] Potassium [Moles/volume] in Serum or PlasmaOrdered By: Luz Fiore on 05-12-2023 Potassium [Moles/Vol] 4.0 mmol/L Normal 3.5-5.1 [facility] Comment on above: Performed By: #### R EDRAW AST, REDRAW K ####[facility] [place] [address] Protein Auto test strip (U) [Mass/Vol]Ordered By: Luz Fiore on 05-12-2023 Protein (U) [Mass/Vol] Negative Negative [facility] Protein [Mass/volume] in Ser um or PlasmaOrdered By: Luz Fiore on 05-12-2023 Protein [Mass/Vol] 7.7 g/dL Normal 6.4-8.9 [facility] Comment on above: Performed By: #### C MP, CBC #### [address] Serum globulin measurement b y calculation (mass/volume)Ordered By: Luz Fiore on 05-12-2023 Globulin (S) [Mass/Vol] 3.1 g/dL [facility] Comment on above: Performed By: #### C MP, CBC #### [address] Serum or plasma albumin/glob ulin mass ratioOrdered By: Luz Fiore on 05-12-2023 Albumin/Globulin [Mass ratio] 1.5 {ratio} [facility] Comment on above: Performed By: #### C MP, CBC #### [facility] [address] Serum or plasma anion gap de terminationOrdered By: Luz Fiore on 05-12-2023 Anion gap [Moles/Vol] TNP [facility] Comment on above: Test not performed Sodium [Moles/volume] in Ser um or PlasmaOrdered By: Luz Fiore on 05-12-2023 Sodium [Moles/Vol] 140 mmol/L Normal 136-145 [facility] Comment on above: Performed By: #### C MP, CBC #### [facility] [address] Specific gravity Auto test s trip (U) [Rel density]Ordered By: Luz Fiore on 05-12-2023 Specific gravity (U) [Rel density] 1.022 1.001-1.030 [facility] Squamous epithelial cells de tection in urine sediment by light microscopyOrdered By: Luz Fiore on 05-12-2023 Epithelial cells.squamous LM Ql (Urine sed) 5-9 [HPF] 0-2 [facility] Urea nitrogen [Mass/volume] in Serum or PlasmaOrdered By: Luz Fiore on 05-12-2023 Urea nitrogen [Mass/Vol] 11 mg/dL Normal 7-25 [facility] Comment on above: Performed By: #### C MP, CBC #### [facility] [address] [place] [address] Urine bacteria detection by automated methodOrdered By: Luz Fiore on 05-12-2023 Bacteria Auto Ql (U) 1+ None Seen [facility] Urine clarity by refractomet ry automatedOrdered By: Luz Fiore on 05-12-2023 Clarity Refractometry automated (U) Cloudy Clear [facility] Urine glucose measurement by automated test strip (mass/volume)Ordered By: Luz Fiore on 05-12-2023 Glucose Auto test strip (U) [Mass/Vol] Normal mg/dL Normal [facility] Urine hemoglobin detection b y automated test stripOrdered By: Luz Fiore on 05-12-2023 Hemoglobin Auto test strip Ql (U) Trace Negative [facility] Urine leukocyte esterase det ection by automated test stripOrdered By: Luz Fiore on 05-12-2023 Leukocyte esterase Auto test strip Ql (U) Negative Negative [facility] Urine pH measurement by auto mated test stripOrdered By: Luz Fiore on 05-12-2023 pH (U) 7.0 [pH] Normal 5.0-9.0 [facility] Comment on above: Order Comment: Name Collection Type:: Clean-Voided Midstream Performed By: #### A DDONUAPLUS, [facility] ####[address] Urobilinogen Auto test strip (U) [Mass/Vol]Ordered By: Luz Fiore on 05-12-2023 Urobilinogen (U) [Mass/Vol] Normal mg/dL Normal [facility] Alanine aminotransferase [En zymatic activity/volume] in Serum or PlasmaOrdered By: Mario Alberto Jose on 04-12-2023 ALT [Catalytic activity/Vol] 8 U/L Normal 7-52 [facility] Comment on above: Performed By: #### C MP, CBC ####[address] Albumin [Mass/volume] in Ser um or Plasma by Bromocresol green (BCG) dye binding methoOrdered By: Mario Alberto Jose on 04-12-2023 Albumin BCG dye [Mass/Vol] 4.9 g/dL 3.5-5.7 [facility] Alkaline phosphatase [Enzyma tic activity/volume] in Serum or PlasmaOrdered By: Mario Alberto Jose on 04-12-2023 ALP [Catalytic activity/Vol] 69 U/L Normal 34-104 [facility] Comment on above: Performed By: #### C MP, CBC ####[place] [id number] [facility] Aspartate aminotransferase [ Enzymatic activity/volume] in Serum or PlasmaOrdered By: Mario Alberto Jose on 04-12-2023 AST [Catalytic activity/Vol] 18 U/L Normal 13-39 [facility] Comment on above: Performed By: #### C MP, CBC ####[place] [id number] [facility] Automated basophil %Ordered By: Mario Alberto Jose on 04-12-2023 Basophils/100 WBC (Bld) 0.4 % Normal . [facility] Comment on above: Performed By: #### C MP, CBC ####[address] Automated basophil countOrde red By: Mario Alberto Jose on 04-12-2023 Basophils (Bld) [#/Vol] 0.0 10*3/uL Normal 0.0-0.2 [facility] Comment on above: Result Comment: PERF ORMED BY: [facility] [address] [place] [address] PATHOLOGIST [employer] JOSE LUZ M.D. Performed By: #### C MP, CBC ####[address] Automated blood monocyte cou ntOrdered By: Mario Alberto Jose on 04-12-2023 Monocytes (Bld) [#/Vol] 0.5 10*3/uL Normal 0.0-0.8 [facility] Comment on above: Performed By: #### C MP, CBC ####[address] Automated eosinophil %Ordere d By: Mario Alberto Jose on 04-12-2023 Eosinophils/100 WBC (Bld) 0.5 % Normal . [facility] Comment on above: Performed By: #### C MP, CBC ####[address] Automated eosinophil countOr dered By: Mario Alberto Jose on 04-12-2023 Eosinophils (Bld) [#/Vol] 0.0 10*3/uL Normal 0.0-0.45 [facility] Comment on above: Performed By: #### C MP, CBC ####[address] Automated monocyte %Ordered By: Mario Alberto Jose on 04-12-2023 Monocytes/100 WBC (Bld) 5.6 % Normal . [facility] Comment on above: Performed By: #### C MP, CBC ####[address] [place] [address] [place] Automated neutrophil %Ordere d By: Mario Alberto Jose on 04-12-2023 Neutrophils/100 WBC (Bld) 68.1 % Normal . [facility] Comment on above: Performed By: #### C MP, CBC ####[address] Bilirubin.total [Mass/volume ] in Serum or PlasmaOrdered By: Mario Alberto Jose on 04-12-2023 Bilirubin [Mass/Vol] 0.3 mg/dL Normal 0.3-1.0 [facility] Comment on above: Performed By: #### C MP, CBC ####[address] Calcium [Mass/volume] in Ser um or PlasmaOrdered By: Mario Alberto Jose on 04-12-2023 Calcium [Mass/Vol] 9.9 mg/dL Normal 8.6-10.3 [facility] Comment on above: Performed By: #### C MP, CBC ####[place] [id number] [facility] Carbon dioxide, total [Moles /volume] in Serum or PlasmaOrdered By: Mario Alberto Jose on 04-12-2023 CO2 [Moles/Vol] 27.5 mmol/L Normal 21.0-31.0 [facility] Comment on above: Performed By: #### C MP, CBC ####[address] Chloride [Moles/volume] in S alexis or PlasmaOrdered By: Mario Alberto Jose on 04-12-2023 Chloride [Moles/Vol] 104 mmol/L Normal 98-107 [facility] Comment on above: Performed By: #### C MP, CBC ####[place] [id number] [facility] Complete Blood Count Auto Di ffon 04-12-2023 Mean Corpuscular HGB Conc 33.3 g/dL Normal 32.0-35.0 [facility] Comment on above: Performed By: #### C MP, CBC ####[address] [address] [facility] Monocytes/100 WBC (Bld) 15.89 % Normal 0.00-20.00 [facility] Comment on above: Performed By: #### C MP, CBC ####[place] [id number] [facility] NRBC% 0.1 /100{WBC} Normal 0-0.5 [facility] Comment on above: Performed By: #### C MP, CBC ####[place] [id number] [facility] Comprehensive Metabolic Pane basim 04-12-2023 Albumin [Mass/Vol] 4.9 g/dL Normal 3.5-5.7 [facility] Comment on above: Performed By: #### C MP, CBC ####[address] Creatinine Clr Calc Pharmacy 73.79 Normal [facility] Comment on above: Result Comment: PERF ORMED BY: [place] [address] PATHOLOGIST [employer] JOSE LUZ M.D. Performed By: #### C MP, CBC ####[place] [id number] [facility] GFR/1.73 sq M.predicted MDRD (S/P/Bld) [Vol rate/Area] mL/min/{1.73_m2} Normal [facility] Comment on above: Performed By: #### C MP, CBC ####[place] [id number] [facility] Creatinine [Mass/volume] in Serum or PlasmaOrdered By: Mario Alberto Jose on 04-12-2023 Creatinine [Mass/Vol] 0.91 mg/dL Normal 0.60-1.20 [facility] Comment on above: Performed By: #### C MP, CBC ####[place] [id number] [facility] ECG 12 lead ECGon 04-12-2023 ECG 12 lead ECG [facility] [address] [place] [address] [place] [address] Electrocardiograph Report Signed Patient: Bhavna Kovacs MR#: [id number] 668 : 2000 Acct:[id number] Age/Sex: 22 / F ADM Date: 04/12/23 Loc: ER Room: Type: [facility] ER Attending Dr: Ordering Provider: Mario Alberto [...] By Mario Alberto Jose MD 04/12/23 1500 Normal [facility] Erythrocyte distribution wid th [Ratio] by Automated countOrdered By: Mario Alberto Jose on 04-12-2023 Erythrocyte distribution width (RBC) [Ratio] 14.8 % Normal 11.9-15.3 [facility] Comment on above: Performed By: #### C MP, CBC ####[facility] [id number] [place] [id number] [facility] Erythrocytes [#/volume] in B lood by Automated countOrdered By: Mario Alberto Jose on 04-12-2023 RBC (Bld) [#/Vol] 4.78 10*6/uL Normal 3.60-5.00 [facility] Comment on above: Performed By: #### C MP, CBC ####[facility] [address] [place] [id number] [facility] Glucose [Mass/volume] in Ser um or PlasmaOrdered By: Mario Alberto Jose on 04-12-2023 Glucose [Mass/Vol] 92 mg/dL Normal 70-100 [facility] Comment on above: ADA recommended refe rence rangeRandom Glucose Reference Range is dependent on time and content of last meal. Glucose of more than 200 mg/dL in a nonstressed, ambulatory subject supports the diagnosis of Diabetes Mellitus. Result Comment: [place] Glucose Reference Range is dependent on time and content of last meal. Glucose of more than 200 mg/dL in a nonstressed, ambulatory subject supports the diagnosis of Diabetes Mellitus. ADA recommended reference range Performed By: #### C MP, CBC ####[place] [address] Hematocrit [Volume Fraction] of Blood by Automated countOrdered By: Mario Alberto Jose on 04-12-2023 Hematocrit (Bld) [Volume fraction] 40.6 % Normal 34.0-46.4 [facility] Comment on above: Performed By: #### C MP, CBC ####[address] Hemoglobin [Mass/volume] in BloodOrdered By: MarioA lberto Jose on 04-12-2023 Hemoglobin (Bld) [Mass/Vol] 13.5 g/dL Normal 11.8-15.4 [facility] Comment on above: Performed By: #### C MP, CBC ####[address] Leukocytes [#/volume] correc manjula for nucleated erythrocytes in Blood by Automated counOrdered By: Mario Alberto Jose on 04-12-2023 WBC corrected for nucl RBC Auto (Bld) [#/Vol] 9.7 10*3/uL 3.8-11.6 [facility] Leukocytes [#/volume] in Blo od by Automated countOrdered By: Mario Alberto Jose on 04-12-2023 WBC (Bld) [#/Vol] 9.7 10*3/uL Normal 3.8-11.6 [facility] Comment on above: Performed By: #### C MP, CBC ####[address] Lymphocytes [#/volume] in Bl ood by Automated countOrdered By: Mario Alberto Jose on 04-12-2023 Lymphocytes (Bld) [#/Vol] 2.5 10*3/uL Normal 1.00-4.8 [facility] Comment on above: Performed By: #### C MP, CBC ####[address] Lymphocytes/100 leukocytes i n Blood by Automated countOrdered By: Mario Alberto Jose on 04-12-2023 Lymphocytes/100 WBC (Bld) 25.4 % Normal . [facility] Comment on above: Performed By: #### C MP, CBC ####[address] MCH [Entitic mass] by Automa manjula countOrdered By: Mario Alberto Jose on 04-12-2023 MCH (RBC) [Entitic mass] 28.2 pg Normal 24.7-34.3 [facility] Comment on above: Performed By: #### C MP, CBC ####[address] MCHC Auto (RBC) [Mass/Vol]Or dered By: Mario Alberto Jose on 04-12-2023 MCHC (RBC) [Mass/Vol] 33.3 g/dL 32.0-35.0 [facility] MCV [Entitic volume] by Auto mated countOrdered By: Mario Alberto Jose on 04-12-2023 MCV (RBC) [Entitic vol] 84.9 fL Normal 80-100 [facility] Comment on above: Performed By: #### C MP, CBC ####[address] Monocyte distribution width [Entitic volume] in Blood by AutomatedOrdered By: Mario Alberto Jose on 04-12-2023 Monocyte distribution width Auto (Bld) [Entitic vol] 15.89 % 0.00-20.00 [facility] Neutrophils [#/volume] in Bl ood by Automated countOrdered By: Mario Alberto Jose on 04-12-2023 Neutrophils (Bld) [#/Vol] 6.6 10*3/uL Normal 1.8-7.7 [facility] Comment on above: Performed By: #### C MP, CBC ####[address] No Panel InformationOrdered By: Mario Alberto Jose on 04-12-2023 Estimated GFR (CKD-EPI) > 60.0 mL/Min [facility] Creatinine Clearance (Chem 73.79 [facility] Nucleated erythrocytes [Pres ence] in Blood by Automated countOrdered By: Mario Alberto Jose on 04-12-2023 Nucleated RBC Auto Ql (Bld) 0.1 /100{WBC} 0-0.5 [facility] Platelet mean volume [Entiti c volume] in Blood by Automated countOrdered By: Mario Alberto Jose on 04-12-2023 Platelet mean volume (Bld) [Entitic vol] 7.7 fL Normal 6.3-10.7 [facility] Comment on above: Performed By: #### C MP, CBC ####[address] Platelets [#/volume] in Bloo d by Automated countOrdered By: Mario Alberto Jose on 04-12-2023 Platelets (Bld) [#/Vol] 307 10*3/uL Normal 150-450 [facility] Comment on above: Performed By: #### C MP, CBC ####[place] [id number] [facility] Potassium [Moles/volume] in Serum or PlasmaOrdered By: Mario Alberto Jose on 04-12-2023 Potassium [Moles/Vol] 4.1 mmol/L Normal 3.5-5.1 [facility] Comment on above: Performed By: #### C MP, CBC ####[place] [id number] [facility] Protein [Mass/volume] in Ser um or PlasmaOrdered By: Mario Alberto Jose on 04-12-2023 Protein [Mass/Vol] 8.4 g/dL Normal 6.4-8.9 [facility] Comment on above: Performed By: #### C MP, CBC ####[place] [id number] [facility] Serum globulin measurement b y calculation (mass/volume)Ordered By: Mario Alberto Jose on 04-12-2023 Globulin (S) [Mass/Vol] 3.5 g/dL Normal [facility] Comment on above: Performed By: #### C MP, CBC ####[place] [address] [place] [id number] [facility] Serum or plasma albumin/glob ulin mass ratioOrdered By: Mario Alberto Jose on 04-12-2023 Albumin/Globulin [Mass ratio] 1.4 {ratio} Normal [facility] Comment on above: Performed By: #### C MP, CBC ####[address] Serum or plasma anion gap de terminationOrdered By: Mario Alberto Jose on 04-12-2023 Anion gap [Moles/Vol] 13.6 mmol/L Normal 6.0-15.0 [facility] Comment on above: Performed By: #### C MP, CBC ####[address] Sodium [Moles/volume] in Ser um or PlasmaOrdered By: Mario Alberto Jose on 04-12-2023 Sodium [Moles/Vol] 141 mmol/L Normal 136-145 [facility] Comment on above: Performed By: #### C MP, CBC ####[address] Urea nitrogen [Mass/volume] in Serum or PlasmaOrdered By: Mario Alberto Jose on 04-12-2023 Urea nitrogen [Mass/Vol] 9 mg/dL Normal 7-25 [facility] Comment on above: Performed By: #### C MP, CBC ####[address] Alanine aminotransferase [En zymatic activity/volume] in Serum or PlasmaOrdered By: Milton Rivera on 03-23-2023 ALT [Catalytic activity/Vol] 8 U/L Normal 7-52 [facility] Comment on above: Performed By: #### C K, PRL, CBC, CMP, LACTIC ####[place] [id number] [facility] Albumin [Mass/volume] in Ser um or Plasma by Bromocresol green (BCG) dye binding methoOrdered By: Milton Rivera on 03-23-2023 Albumin BCG dye [Mass/Vol] 4.9 g/dL 3.5-5.7 [facility] Alkaline phosphatase [Enzyma tic activity/volume] in Serum or PlasmaOrdered By: Milton Rivera on 03-23-2023 ALP [Catalytic activity/Vol] 59 U/L Normal 34-104 [facility] Comment on above: Performed By: #### C K, PRL, CBC, CMP, LACTIC ####[address] Aspartate aminotransferase [ Enzymatic activity/volume] in Serum or PlasmaOrdered By: Milton Rivera on 03-23-2023 AST [Catalytic activity/Vol] 20 U/L Normal 13-39 [facility] Comment on above: Performed By: #### C K, PRL, CBC, CMP, LACTIC ####[address] Automated basophil %Ordered By: Milton Rivera on 03-23-2023 Basophils/100 WBC (Bld) 0.5 % Normal . [facility] Comment on above: Performed By: #### C K, PRL, CBC, CMP, LACTIC ####[address] Automated basophil countOrde red By: Milton Rivera on 03-23-2023 Basophils (Bld) [#/Vol] 0.0 10*3/uL Normal 0.0-0.2 [facility] Comment on above: Result Comment: PERF ORMED BY: [facility] [address] [place] [address] PATHOLOGIST [employer] JOSE LUZ M.D. Performed By: #### C K, PRL, CBC, CMP, LACTIC ####[address] Automated blood monocyte cou ntOrdered By: Milton Rivera on 03-23-2023 Monocytes (Bld) [#/Vol] 0.6 10*3/uL Normal 0.0-0.8 [facility] Comment on above: Performed By: #### C K, PRL, CBC, CMP, LACTIC ####[address] Automated eosinophil %Ordere d By: Milton Rivera on 03-23-2023 Eosinophils/100 WBC (Bld) 0.4 % Normal . [facility] Comment on above: Performed By: #### C K, PRL, CBC, CMP, LACTIC ####[address] Automated eosinophil countOr dered By: Milton Rivera on 03-23-2023 Eosinophils (Bld) [#/Vol] 0.0 10*3/uL Normal 0.0-0.45 [facility] Comment on above: Performed By: #### C K, PRL, CBC, CMP, LACTIC ####[address] Automated monocyte %Ordered By: Milton Rivera on 03-23-2023 Monocytes/100 WBC (Bld) 6.9 % Normal . [facility] Comment on above: Performed By: #### C K, PRL, CBC, CMP, LACTIC ####[address] Automated neutrophil %Ordere d By: Milton Rivera on 03-23-2023 Neutrophils/100 WBC (Bld) 55.0 % Normal . [facility] Comment on above: Performed By: #### C K, PRL, CBC, CMP, LACTIC ####[address] Bilirubin.total [Mass/volume ] in Serum or PlasmaOrdered By: Milton Rivera on 03-23-2023 Bilirubin [Mass/Vol] 0.4 mg/dL Normal 0.3-1.0 [facility] Comment on above: Performed By: #### C K, PRL, CBC, CMP, LACTIC ####[address] Calcium [Mass/volume] in Ser um or PlasmaOrdered By: Milton Rivera on 03-23-2023 Calcium [Mass/Vol] 9.6 mg/dL Normal 8.6-10.3 [facility] Comment on above: Performed By: #### C K, PRL, CBC, CMP, LACTIC ####[address] Capillary blood glucose randi urement by glucometer (mass/volume)Ordered By: CRISTIANE SHARMA on 03-23-2023 Glucose [Mass/Vol] 88 mg/dL Normal [facility] Comment on above: Random Glucose Refer ence Range is dependent on time and content of last meal. Glucose of more than 200 mg/dL in a nonstressed, ambulatory subject supports the diagnosis of Diabetes Mellitus. Result Comment: [place] Glucose Reference Range is dependent on time and content of last meal. Glucose of more than 200 mg/dL in a nonstressed, ambulatory subject supports the diagnosis of Diabetes Mellitus. Performed By: #### G LULS #### Point of Care testing , Carbon dioxide, total [Moles /volume] in Serum or PlasmaOrdered By: Milton Rivera on 03-23-2023 CO2 [Moles/Vol] 21.8 mmol/L Normal 21.0-31.0 [facility] Comment on above: Performed By: #### C K, PRL, CBC, CMP, LACTIC ####[address] Chloride [Moles/volume] in S alexis or PlasmaOrdered By: Milton Rivera on 03-23-2023 Chloride [Moles/Vol] 105 mmol/L Normal 98-107 [facility] Comment on above: Performed By: #### C K, PRL, CBC, CMP, LACTIC ####[place] [id number] [facility] Complete Blood Count Auto Di ffon 03-23-2023 Mean Corpuscular HGB Conc 33.5 g/dL Normal 32.0-35.0 [facility] Comment on above: Performed By: #### C K, PRL, CBC, CMP, LACTIC ####[address] Monocytes/100 WBC (Bld) 21.12 % High 0.00-20.00 [facility] Comment on above: Result Comment: For adults in ED, MDW > 20.0 may be associated with a higher risk of sepsis during the first 12 hrs of hospital admission Performed By: #### C K, PRL, CBC, CMP, LACTIC ####[place] [address] [place] [id number] [facility] NRBC% 0.1 /100{WBC} Normal 0-0.5 [facility] Comment on above: Performed By: #### C K, PRL, CBC, CMP, LACTIC ####[place] [id number] [facility] Comprehensive Metabolic Pane basim 03-23-2023 Albumin [Mass/Vol] 4.9 g/dL Normal 3.5-5.7 [facility] Comment on above: Performed By: #### C K, PRL, CBC, CMP, LACTIC ####[address] Creatinine Clr Calc Pharmacy 85.00 Normal [facility] Comment on above: Performed By: #### C K, PRL, CBC, CMP, LACTIC ####[address] GFR/1.73 sq M.predicted MDRD (S/P/Bld) [Vol rate/Area] mL/min/{1.73_m2} Normal [facility] Comment on above: Performed By: #### C K, PRL, CBC, CMP, LACTIC ####[address] Creatine kinase [Enzymatic a ctivity/volume] in Serum or PlasmaOrdered By: Milton Rivera on 03-23-2023 CK [Catalytic activity/Vol] 45 U/L Normal 30-223 [facility] Comment on above: Result Comment: PERF ORMED BY: [facility] [address] [facility] [place] [address] PATHOLOGIST [employer] JOSE LUZ M.D. Performed By: #### C K, PRL, CBC, CMP, LACTIC ####[address] Creatinine [Mass/volume] in Serum or PlasmaOrdered By: Milton Rivera on 03-23-2023 Creatinine [Mass/Vol] 0.79 mg/dL Normal 0.60-1.20 [facility] Comment on above: Performed By: #### C K, PRL, CBC, CMP, LACTIC ####[facility] [id number] ECG 12 lead ECGon 03-23-2023 ECG 12 lead ECG [facility] [address] [place] [address] [place] [address] Electrocardiograph Report Signed Patient: Bhavna Kovacs MR#: [id number] : 2000 Acct:[id number] Age/Sex: 22 / F ADM Date: 03/23/23 Loc: ER Room: Type: [facility] ER Attending Dr: Ordering Provider: Milton Rivera [...] Biatrial enlargement Confirmed by Bobby Gallagher DO ([id number]) on 03/23/2023 7:47:54 PM Referred By: Electronically Signed By:Bobby Gallagher DO Transcribed By: MUS Signed By Bobby Gallagher DO 1945 Normal [facility] Erythrocyte distribution wid th [Ratio] by Automated countOrdered By: Milton Rivera on 03-23-2023 Erythrocyte distribution width (RBC) [Ratio] 15.2 % Normal 11.9-15.3 [facility] Comment on above: Performed By: #### C K, PRL, CBC, CMP, LACTIC ####[facility] [id number] [place] [id number] [facility] Erythrocytes [#/volume] in B lood by Automated countOrdered By: Milton Rivera on 03-23-2023 RBC (Bld) [#/Vol] 4.78 10*6/uL Normal 3.60-5.00 [facility] Comment on above: Performed By: #### C K, PRL, CBC, CMP, LACTIC ####[place] [address] [place] [id number] [facility] Glucose Poct Glucometerson 0 03-23-2023 Commemt1 Glu2: Cleaned Meter Normal [facility] Comment on above: Result Comment: PERF ORMED BY: [facility] [address] [place] [address] PATHOLOGIST [employer] JOSE LUZ M.D. Performed By: #### G RONALD #### Point of Care testing , Glucose [Mass/volume] in Ser um or PlasmaOrdered By: Milton Rivera on 03-23-2023 Glucose [Mass/Vol] 81 mg/dL Normal 70-100 [facility] Comment on above: ADA recommended refe rence rangeRandom Glucose Reference Range is dependent on time and content of last meal. Glucose of more than 200 mg/dL in a nonstressed, ambulatory subject supports the diagnosis of Diabetes Mellitus. Result Comment: [place] Glucose Reference Range is dependent on time and content of last meal. Glucose of more than 200 mg/dL in a nonstressed, ambulatory subject supports the diagnosis of Diabetes Mellitus. ADA recommended reference range Performed By: #### C K, PRL, CBC, CMP, LACTIC ####[place] [address] [place] [id number] [facility] Hematocrit [Volume Fraction] of Blood by Automated countOrdered By: Milton Rivera on 03-23-2023 Hematocrit (Bld) [Volume fraction] 41.0 % Normal 34.0-46.4 [facility] Comment on above: Performed By: #### C K, PRL, CBC, CMP, LACTIC ####[place] [address] [place] [id number] [facility] Hemoglobin [Mass/volume] in BloodOrdered By: Milton Rivera on 03-23-2023 Hemoglobin (Bld) [Mass/Vol] 13.8 g/dL Normal 11.8-15.4 [facility] Comment on above: Performed By: #### C K, PRL, CBC, CMP, LACTIC ####[place] [id number] [facility] Lactate [Moles/volume] in Se rum or PlasmaOrdered By: Milton Rivera on 03-23-2023 Lactate [Moles/Vol] 0.8 mmol/L Normal 0.5-2.2 [facility] Comment on above: Result Comment: PERF ORMED BY: [facility] [address] [place] [id number] PATHOLOGIST [employer] JOSE LUZ M.D. Performed By: #### C K, PRL, CBC, CMP, LACTIC ####[place] [address] [place] [id number] [facility] Lamotrigine (Lamictal)on Lamotrigine (Lamictal) 2.0 ug/mL Normal 2.0-20.0 [facility] Comment on above: Result Comment: Dete ction Limit = 1.0 Performed at: [facility] [address] [id number] Fire Alarm Repairer: Sina Hills MD, Phone: [phone] PERFORMED BY: [facility] [address] [address] PATHOLOGIST [employer] JOSE LUZ M.D. Performed By: #### L AMOT ####[facility] , Leukocytes [#/volume] correc manjula for nucleated erythrocytes in Blood by Automated counOrdered By: Milton Rivera on 03-23-2023 WBC corrected for nucl RBC Auto (Bld) [#/Vol] 8.9 10*3/uL 3.8-11.6 [facility] Leukocytes [#/volume] in Blo od by Automated countOrdered By: Milton Rivera on 03-23-2023 WBC (Bld) [#/Vol] 8.9 10*3/uL Normal 3.8-11.6 [facility] Comment on above: Performed By: #### C K, PRL, CBC, CMP, LACTIC ####[place] [address] [place] [id number] [facility] Levetiracetam (Keppra)on levETIRAcetam [Mass/Vol] 15.5 ug/mL Normal 10.0-40.0 [facility] Comment on above: Result Comment: Perf ormed at: [facility] - [facility] [place] [address] [facility], [place], [place] [id number] Fire Alarm Repairer: Sina Hills MD, Phone: [phone] PERFORMED BY: [facility] [address] [place] [id number] PATHOLOGIST [employer] JOSE LUZ M.D. Performed By: #### L EV ####[facility] , Lymphocytes [#/volume] in Bl ood by Automated countOrdered By: Milton Rivera on 03-23-2023 Lymphocytes (Bld) [#/Vol] 3.3 10*3/uL Normal 1.00-4.8 [facility] Comment on above: Performed By: #### C K, PRL, CBC, CMP, LACTIC ####[address] Lymphocytes/100 leukocytes i n Blood by Automated countOrdered By: Milton Rivera on 03-23-2023 Lymphocytes/100 WBC (Bld) 37.2 % Normal . [facility] Comment on above: Performed By: #### C K, PRL, CBC, CMP, LACTIC ####[place] [address] MCH [Entitic mass] by Automa manjula countOrdered By: Milton Rivera on 03-23-2023 MCH (RBC) [Entitic mass] 28.8 pg Normal 24.7-34.3 [facility] Comment on above: Performed By: #### C K, PRL, CBC, CMP, LACTIC ####[facility] [id number] [place] [address] MCHC Auto (RBC) [Mass/Vol]Or dered By: Milton Rivera on 03-23-2023 MCHC (RBC) [Mass/Vol] 33.5 g/dL 32.0-35.0 [facility] MCV [Entitic volume] by Auto mated countOrdered By: Milton Rivera on 03-23-2023 MCV (RBC) [Entitic vol] 85.9 fL Normal 80-100 [facility] Comment on above: Performed By: #### C K, PRL, CBC, CMP, LACTIC ####[facility] [id number] [place] [id number] [facility] Monocyte distribution width [Entitic volume] in Blood by AutomatedOrdered By: Milton Rivera on 03-23-2023 Monocyte distribution width Auto (Bld) [Entitic vol] 21.12 % 0.00-20.00 [facility] Comment on above: For adults in ED, MD W > 20.0 may be associated with a higher risk of sepsis during the first 12 hrs of hospital admission Neutrophils [#/volume] in Bl ood by Automated countOrdered By: Milton Rivera on 03-23-2023 Neutrophils (Bld) [#/Vol] 4.9 10*3/uL Normal 1.8-7.7 [facility] Comment on above: Performed By: #### C K, PRL, CBC, CMP, LACTIC ####[facility] [id number] No Panel InformationOrdered By: Margarita Gallo on 03-23-2023 Lamotrigine (Lamictal) Level 2.0 ug/mL 2.0-20.0 [facility] Comment on above: Detection Limit = 1. 0Performed at: [facility] - [facility] [place] [id number] Director: Sina Hills MD, Phone: [phone] Levetiracetam (Keppra) Level 15.5 ug/mL 10.0-40.0 [facility] Comment on above: Performed at: [facility] [place] [id number] Director: Sina Hills MD, Phone: [phone] No Panel InformationOrdered By: CRISTIANE SHARMA on 03-23-2023 Bedside Glucose Comment Glu2: cleaned meter [facility] No Panel InformationOrdered By: Milton Rivera on 03-23-2023 Estimated GFR (CKD-EPI) > 60.0 mL/Min [facility] Creatinine Clearance (Chem 85.00 [facility] Nucleated erythrocytes [Pres ence] in Blood by Automated countOrdered By: Milton Rivera on 03-23-2023 Nucleated RBC Auto Ql (Bld) 0.1 /100{WBC} 0-0.5 [facility] Platelet mean volume [Entiti c volume] in Blood by Automated countOrdered By: Milton Rivera on 03-23-2023 Platelet mean volume (Bld) [Entitic vol] 8.6 fL Normal 6.3-10.7 [facility] Comment on above: Performed By: #### C K, PRL, CBC, CMP, LACTIC ####[address] Platelets [#/volume] in Bloo d by Automated countOrdered By: Milton Rivera on 03-23-2023 Platelets (Bld) [#/Vol] 257 10*3/uL Normal 150-450 [facility] Comment on above: Performed By: #### C K, PRL, CBC, CMP, LACTIC ####[address] Potassium [Moles/volume] in Serum or PlasmaOrdered By: Milton Rivera on 03-23-2023 Potassium [Moles/Vol] 4.3 mmol/L Normal 3.5-5.1 [facility] Comment on above: Performed By: #### C K, PRL, CBC, CMP, LACTIC ####[place] [id number] [facility] Prolactinon 03-23-2023 Prolactin 23.65 ng/mL Normal 3.34-26.72 [facility] Comment on above: Result Comment: PERF ORMED BY: [facility] [address] [place] [id number] PATHOLOGIST [employer] JOSE LUZ M.D. Performed By: #### C K, PRL, CBC, CMP, LACTIC ####[place] [id number] [facility] Prolactin [Mass/volume] in S alexis or PlasmaOrdered By: Milton Rivera on 03-23-2023 Prolactin [Mass/Vol] 23.65 ng/mL 3.34-26.72 [facility] Protein [Mass/volume] in Ser um or PlasmaOrdered By: Milton Rivera on 03-23-2023 Protein [Mass/Vol] 8.1 g/dL Normal 6.4-8.9 [facility] Comment on above: Performed By: #### C K, PRL, CBC, CMP, LACTIC ####[address] Serum globulin measurement b y calculation (mass/volume)Ordered By: Milton Rivera on 03-23-2023 Globulin (S) [Mass/Vol] 3.2 g/dL [facility] Comment on above: Performed By: #### C K, PRL, CBC, CMP, LACTIC ####[address] Serum or plasma albumin/glob ulin mass ratioOrdered By: Milton Rivera on 03-23-2023 Albumin/Globulin [Mass ratio] 1.5 {ratio} [facility] Comment on above: Performed By: #### C K, PRL, CBC, CMP, LACTIC ####[address] Serum or plasma anion gap de terminationOrdered By: Milton Rivera on 03-23-2023 Anion gap [Moles/Vol] 16.5 mmol/L High 6.0-15.0 [facility] Comment on above: Performed By: #### C K, PRL, CBC, CMP, LACTIC ####[address] Sodium [Moles/volume] in Ser um or PlasmaOrdered By: Milton Rivera on 03-23-2023 Sodium [Moles/Vol] 139 mmol/L Normal 136-145 [facility] Comment on above: Performed By: #### C K, PRL, CBC, CMP, LACTIC ####[address] Urea nitrogen [Mass/volume] in Serum or PlasmaOrdered By: Milton Rivera on 03-23-2023 Urea nitrogen [Mass/Vol] 12 mg/dL Normal 7-25 [facility] Comment on above: Performed By: #### C K, PRL, CBC, CMP, LACTIC ####[facility] [id number] Alanine aminotransferase [En zymatic activity/volume] in Serum or PlasmaOrdered By: Luz Fiore on 03-11-2023 ALT [Catalytic activity/Vol] 6 U/L Low 7-52 [facility] Comment on above: Performed By: #### C BC, CMP #### [facility] [address] [place] [address] [place] #### LEV #### [facility] , Albumin [Mass/volume] in Ser um or Plasma by Bromocresol green (BCG) dye binding methoOrdered By: Luz Fiore on 03-11-2023 Albumin BCG dye [Mass/Vol] 4.5 g/dL 3.5-5.7 [facility] Alkaline phosphatase [Enzyma tic activity/volume] in Serum or PlasmaOrdered By: Luz Fiore on 03-11-2023 ALP [Catalytic activity/Vol] 55 U/L Normal 34-104 [facility] Comment on above: Performed By: #### C BC, CMP #### [facility] [address] [place] [address] [place] #### LEV #### [facility] , Aspartate aminotransferase [ Enzymatic activity/volume] in Serum or PlasmaOrdered By: Lzu Fiore on 03-11-2023 AST [Catalytic activity/Vol] 14 U/L Normal 13-39 [facility] Comment on above: Performed By: #### C BC, CMP #### [facility] [address] [place] [address] [place] #### LEV #### [facility] , Automated basophil %Ordered By: Luz Fiore on 03-11-2023 Basophils/100 WBC (Bld) 0.5 % Normal . [facility] Comment on above: Performed By: #### C BC, CMP #### [facility] [address] [place] [address] [place] #### LEV #### [facility] , Automated basophil countOrde red By: Luz Fiore on 03-11-2023 Basophils (Bld) [#/Vol] 0.0 10*3/uL Normal 0.0-0.2 [facility] Comment on above: Result Comment: PERF ORMED BY: [place] [address] PATHOLOGIST [employer] JOSE LUZ M.D. Performed By: #### C BC, CMP #### [place] [address] [place] #### LEV #### [facility] , Automated blood monocyte cou ntOrdered By: Luz Fiore on 03-11-2023 Monocytes (Bld) [#/Vol] 0.5 10*3/uL Normal 0.0-0.8 [facility] Comment on above: Performed By: #### C BC, CMP #### [place] [address] [place] #### LEV #### [facility] , Automated eosinophil %Ordere d By: Luz Fiore on 03-11-2023 Eosinophils/100 WBC (Bld) 0.5 % Normal . [facility] Comment on above: Performed By: #### C BC, CMP #### [place] [address] [place] #### LEV #### [facility] , Automated eosinophil countOr dered By: Luz Fiore on 03-11-2023 Eosinophils (Bld) [#/Vol] 0.0 10*3/uL Normal 0.0-0.45 [facility] Comment on above: Performed By: #### C BC, CMP #### [facility] [address] [place] [address] [place] #### LEV #### [facility] , Automated erythrocytes count in urine sediment (number/area)Ordered By: Luz Fiore on 03-11-2023 RBC Auto (Urine sed) [#/Area] 3-4 [HPF] 0-4 [facility] Automated leukocytes count i n urine sediment (number/area)Ordered By: Luz Fiore on 03-11-2023 WBC Auto (Urine sed) [#/Area] 3-4 [HPF] 0-4 [facility] Automated monocyte %Ordered By: Luz Fiore on 03-11-2023 Monocytes/100 WBC (Bld) 5.8 % Normal . [facility] Comment on above: Performed By: #### C BC, CMP #### [place] [address] [place] #### LEV #### [facility] , Automated neutrophil %Ordere d By: Luz Fiore on 03-11-2023 Neutrophils/100 WBC (Bld) 69.5 % Normal . [facility] Comment on above: Performed By: #### C BC, CMP #### [address] #### LEV #### [facility] , Automated urine color determ inationOrdered By: Luz Fiore on 03-11-2023 Color (U) Yellow Normal Yellow [facility] Comment on above: Order Comment: Name Collection Type:: Clean-Voided Midstream Performed By: #### A DDONUAPLUS #### [address] Bilirubin Test strip Ql (U)O rdered By: Luz Fiore on 03-11-2023 Bilirubin Ql (U) Negative Negative [facility] Bilirubin.total [Mass/volume ] in Serum or PlasmaOrdered By: Lzu Fiore on 03-11-2023 Bilirubin [Mass/Vol] 0.4 mg/dL Normal 0.3-1.0 [facility] Comment on above: Performed By: #### C BC, CMP #### [facility] [address] [place] [address] [place] #### LEV #### [facility] , Calcium [Mass/volume] in Ser um or PlasmaOrdered By: Luz Fiore on 03-11-2023 Calcium [Mass/Vol] 9.3 mg/dL Normal 8.6-10.3 [facility] Comment on above: Performed By: #### C BC, CMP #### [place] [address] [place] #### LEV #### [facility] , Carbon dioxide, total [Moles /volume] in Serum or PlasmaOrdered By: Luz Fiore on 03-11-2023 CO2 [Moles/Vol] 23.3 mmol/L Normal 21.0-31.0 [facility] Comment on above: Performed By: #### C BC, CMP #### [place] [address] [place] #### LEV #### [facility] , Chloride [Moles/volume] in S alexis or PlasmaOrdered By: Luz Fiore on 03-11-2023 Chloride [Moles/Vol] 107 mmol/L Normal 98-107 [facility] Comment on above: Performed By: #### C BC, CMP #### [place] [address] [place] #### LEV #### [facility] , Complete Blood Count Auto Di ffon 03-11-2023 Mean Corpuscular HGB Conc 33.7 g/dL Normal 32.0-35.0 [facility] Comment on above: Performed By: #### C BC, CMP #### [place] [address] [place] #### LEV #### [facility] , Monocytes/100 WBC (Bld) 17.06 % Normal 0.00-20.00 [facility] Comment on above: Performed By: #### C BC, CMP #### [place] [address] [place] #### LEV #### [facility] , NRBC% 0.0 /100{WBC} Normal 0-0.5 [facility] Comment on above: Performed By: #### C BC, CMP #### [place] [address] [place] #### LEV #### [facility] , Comprehensive Metabolic Pane basim 03-11-2023 Albumin [Mass/Vol] 4.5 g/dL Normal 3.5-5.7 [facility] Comment on above: Performed By: #### C BC, CMP #### [address] #### LEV #### [facility] , Creatinine Clr Calc Pharmacy 65.12 Normal [facility] Comment on above: Result Comment: PERF ORMED BY: [place] [address] PATHOLOGIST [employer] JOSE LUZ M.D. Performed By: #### C BC, CMP #### [address] #### LEV #### [facility] , GFR/1.73 sq M.predicted MDRD (S/P/Bld) [Vol rate/Area] mL/min/{1.73_m2} Normal [facility] Comment on above: Performed By: #### C BC, CMP #### [address] #### LEV #### [facility] , Creatinine [Mass/volume] in Serum or PlasmaOrdered By: Luz Fiore on 03-11-2023 Creatinine [Mass/Vol] 0.91 mg/dL Normal 0.60-1.20 [facility] Comment on above: Performed By: #### C BC, CMP #### [place] [address] [place] #### LEV #### [facility] , Dipstick and Microscopicon 0 03-11-2023 Appearance (U) Clear Normal Clear [facility] Comment on above: Order Comment: Name Collection Type:: Clean-Voided Midstream Performed By: #### A DDONUAPLUS #### [address] Bacteria,Urine 1+ High None Seen [facility] Comment on above: Order Comment: Name Collection Type:: Clean-Voided Midstream Performed By: #### A DDONUAPLUS #### [address] Bilirubin,Urine Negative Normal Negative [facility] Comment on above: Order Comment: Name Collection Type:: Clean-Voided Midstream Performed By: #### A DDONUAPLUS #### [address] Glucose Ql (U) Normal Normal Normal [facility] Comment on above: Order Comment: Name Collection Type:: Clean-Voided Midstream Performed By: #### A DDONUAPLUS #### [address] Hyaline Casts,Urine 0-8 Normal 0-8 [facility] Comment on above: Order Comment: Name Collection Type:: Clean-Voided Midstream Result Comment: PERF ORMED BY: [place] [address] PATHOLOGIST [employer] JOSE LUZ M.D. Performed By: #### A DDONUAPLUS #### [address] Ketones Ql (U) Negative Normal Negative [facility] Comment on above: Order Comment: Name Collection Type:: Clean-Voided Midstream Performed By: #### A DDONUAPLUS #### [address] Leukocyte esterase Test strip Ql (U) Negative Normal Negative [facility] Comment on above: Order Comment: Name Collection Type:: Clean-Voided Midstream Performed By: #### A DDONUAPLUS #### [place] [address] [place] Nitrite,Urine Negative Normal Negative [facility] Comment on above: Order Comment: Name Collection Type:: Clean-Voided Midstream Performed By: #### A DDONUAPLUS #### [address] [address] [place] Occult Blood,Urine 1+ High Negative [facility] Comment on above: Order Comment: Name Collection Type:: Clean-Voided Midstream Result Comment: PERF ORMED BY: [place] [address] PATHOLOGIST [employer] JOSE LUZ M.D. Performed By: #### A DDONUAPLUS #### [place] [address] [place] Protein,Urine Negative Normal Negative [facility] Comment on above: Order Comment: Name Collection Type:: Clean-Voided Midstream Performed By: #### A DDONUAPLUS #### [address] RBC,Urine 3-4 Normal 0-4 [facility] Comment on above: Order Comment: Name Collection Type:: Clean-Voided Midstream Performed By: #### A DDONUAPLUS #### [address] Specificy [place],Urine 1.019 Normal 1.001-1.030 [facility] Comment on above: Order Comment: Name Collection Type:: Clean-Voided Midstream Performed By: #### A DDONUAPLUS #### [address] Squamous Epithelial Cell,Urine 1-2 Normal 0-2 [facility] Comment on above: Order Comment: Name Collection Type:: Clean-Voided Midstream Performed By: #### A DDONUAPLUS #### [place] [address] [place] Urobilinogen,Urine Normal Normal Normal [facility] Comment on above: Order Comment: Name Collection Type:: Clean-Voided Midstream Performed By: #### A DDONUAPLUS #### [place] [address] [place] WBC,Urine 3-4 Normal 0-4 [facility] Comment on above: Order Comment: Name Collection Type:: Clean-Voided Midstream Performed By: #### A DDONUAPLUS #### [facility] [address] [place] [address] ECG 12 lead ECGon 03-11-2023 ECG 12 lead ECG [facility] [place] [address] [place] [address] Electrocardiograph Report Signed Patient: Bhavna Kovacs MR#: [id number] : 2000 Acct:[id number] Age/Sex: 22 / F ADM Date: 03/11/23 Loc: ER Room: Type: [facility] ER Attending Dr: Ordering Provider: Luz Fiore [...] was found Confirmed by LUZ FIORE DO ([id number]) on 03/11/2023 4:31:09 PM Referred By: Electronically Signed By:LUZ FIORE DO Transcribed By: MUS Signed By Luz Fiore DO 03/11 1631 Normal [facility] Erythrocyte distribution wid th [Ratio] by Automated countOrdered By: Luz Fiore on 03-11-2023 Erythrocyte distribution width (RBC) [Ratio] 15.3 % Normal 11.9-15.3 [facility] Comment on above: Performed By: #### C BC, CMP #### [facility] [address] [place] [address] #### LEV #### [facility] , Erythrocytes [#/volume] in B lood by Automated countOrdered By: Luz Fiore on 03-11-2023 RBC (Bld) [#/Vol] 4.36 10*6/uL Normal 3.60-5.00 [facility] Comment on above: Performed By: #### C BC, CMP #### [facility] [address] [place] [address] [place] #### LEV #### [facility] , Glucose [Mass/volume] in Ser um or PlasmaOrdered By: Luz Fiore on 03-11-2023 Glucose [Mass/Vol] 89 mg/dL Normal 70-100 [facility] Comment on above: ADA recommended refe rence rangeRandom Glucose Reference Range is dependent on time and content of last meal. Glucose of more than 200 mg/dL in a nonstressed, ambulatory subject supports the diagnosis of Diabetes Mellitus. Result Comment: [place] om Glucose Reference Range is dependent on time and content of last meal. Glucose of more than 200 mg/dL in a nonstressed, ambulatory subject supports the diagnosis of Diabetes Mellitus. ADA recommended reference range Performed By: #### C BC, CMP #### [place] [address] [place] #### LEV #### [facility] , Hematocrit [Volume Fraction] of Blood by Automated countOrdered By: Luz Fiore on 03-11-2023 Hematocrit (Bld) [Volume fraction] 37.1 % Normal 34.0-46.4 [facility] Comment on above: Performed By: #### C BC, CMP #### [place] [address] [place] #### LEV #### [facility] , Hemoglobin [Mass/volume] in BloodOrdered By: Luz Fiore on 03-11-2023 Hemoglobin (Bld) [Mass/Vol] 12.5 g/dL Normal 11.8-15.4 [facility] Comment on above: Performed By: #### C BC, CMP #### [facility] [address] [place] [address] [place] #### LEV #### [facility] , Ketones Auto test strip (U) [Mass/Vol]Ordered By: Luz Fiore on 03-11-2023 Ketones (U) [Mass/Vol] Negative Negative [facility] - UrinalysisOrder ed By: Luz Fiore on 03-11-2023 Hyaline casts LM Ql (Urine sed) 0-8 [LPF] 0-8 [facility] Leukocytes [#/volume] correc manjula for nucleated erythrocytes in Blood by Automated counOrdered By: Luz Fiore on 03-11-2023 WBC corrected for nucl RBC Auto (Bld) [#/Vol] 8.2 10*3/uL 3.8-11.6 [facility] Leukocytes [#/volume] in Blo od by Automated countOrdered By: Luz Fiore on 03-11-2023 WBC (Bld) [#/Vol] 8.2 10*3/uL Normal 3.8-11.6 [facility] Comment on above: Performed By: #### C BC, CMP #### [facility] [address] [place] [address] #### LEV #### [facility] , Levetiracetam (Keppra)on levETIRAcetam [Mass/Vol] 30.8 ug/mL Normal 10.0-40.0 [facility] Comment on above: Result Comment: Perf ormed at: - [facility] [address] [id number] Fire Alarm Repairer: Sina Hills MD, Phone: [phone] PERFORMED BY: [place] [address] PATHOLOGIST [employer] JOSE LUZ M.D. Performed By: #### C BC, CMP #### [place] [address] [place] #### LEV #### [facility] , Lymphocytes [#/volume] in Bl ood by Automated countOrdered By: Luz Fiore on 03-11-2023 Lymphocytes (Bld) [#/Vol] 2.0 10*3/uL Normal 1.00-4.8 [facility] Comment on above: Performed By: #### C BC, CMP #### [facility] [address] [place] [address] [place] #### LEV #### [facility] , Lymphocytes/100 leukocytes i n Blood by Automated countOrdered By: Luz Fiore on 03-11-2023 Lymphocytes/100 WBC (Bld) 23.7 % Normal . [facility] Comment on above: Performed By: #### C BC, CMP #### [place] [address] [place] #### LEV #### [facility] , MCH [Entitic mass] by Automa manjula countOrdered By: Luz Fiore on 03-11-2023 MCH (RBC) [Entitic mass] 28.7 pg Normal 24.7-34.3 [facility] Comment on above: Performed By: #### C BC, CMP #### [place] [address] [place] #### LEV #### [facility] , MCHC Auto (RBC) [Mass/Vol]Or dered By: Luz Fiore on 03-11-2023 MCHC (RBC) [Mass/Vol] 33.7 g/dL 32.0-35.0 [facility] MCV [Entitic volume] by Auto mated countOrdered By: Luz Fiore on 03-11-2023 MCV (RBC) [Entitic vol] 85.1 fL Normal 80-100 [facility] Comment on above: Performed By: #### C BC, CMP #### [place] [address] [place] #### LEV #### [facility] , Monocyte distribution width [Entitic volume] in Blood by AutomatedOrdered By: Luz Fiore on 03-11-2023 Monocyte distribution width Auto (Bld) [Entitic vol] 17.06 % 0.00-20.00 [facility] Neutrophils [#/volume] in Bl ood by Automated countOrdered By: Luz Fiore on 03-11-2023 Neutrophils (Bld) [#/Vol] 5.7 10*3/uL Normal 1.8-7.7 [facility] Comment on above: Performed By: #### C BC, CMP #### [facility] [address] [place] [address] [place] #### LEV #### [facility] , Nitrite Test strip Ql (U)Ord ered By: Luz Fiore on 03-11-2023 Nitrite Ql (U) Negative Negative [facility] No Panel InformationOrdered By: Luz Fiore on 03-11-2023 Levetiracetam (Keppra) Level 30.8 ug/mL 10.0-40.0 [facility] Comment on above: Performed at: - [address] [id number] Director: Sina Hills MD, Phone: [phone] Estimated GFR (CKD-EPI) > 60.0 mL/Min [facility] Creatinine Clearance (Chem 65.12 [facility] Nucleated erythrocytes [Pres ence] in Blood by Automated countOrdered By: Luz Fiore on 03-11-2023 Nucleated RBC Auto Ql (Bld) 0.0 /100{WBC} 0-0.5 [facility] Platelet mean volume [Entiti c volume] in Blood by Automated countOrdered By: Luz Fiore on 03-11-2023 Platelet mean volume (Bld) [Entitic vol] 8.0 fL Normal 6.3-10.7 [facility] Comment on above: Performed By: #### C NARCISO, CMP #### [facility] [address] [place] [address] [place] #### LEV #### [facility] , Platelets [#/volume] in Bloo d by Automated countOrdered By: Luz Fiore on 03-11-2023 Platelets (Bld) [#/Vol] 272 10*3/uL Normal 150-450 [facility] Comment on above: Performed By: #### C BC, CMP #### [facility] [address] [place] [address] [place] #### LEV #### [facility] , Potassium [Moles/volume] in Serum or PlasmaOrdered By: Luz Fiore on 03-11-2023 Potassium [Moles/Vol] 3.6 mmol/L Normal 3.5-5.1 [facility] Comment on above: Performed By: #### C BC, CMP #### [place] [address] [place] #### LEV #### [facility] , Protein Auto test strip (U) [Mass/Vol]Ordered By: Luz Fiore on 03-11-2023 Protein (U) [Mass/Vol] Negative Negative [facility] Protein [Mass/volume] in Ser um or PlasmaOrdered By: Luz Fiore on 03-11-2023 Protein [Mass/Vol] 7.4 g/dL Normal 6.4-8.9 [facility] Comment on above: Performed By: #### C BC, CMP #### [place] [address] [place] #### LEV #### [facility] , Serum globulin measurement b y calculation (mass/volume)Ordered By: Luz Fiore on 03-11-2023 Globulin (S) [Mass/Vol] 2.9 g/dL [facility] Comment on above: Performed By: #### C BC, CMP #### [place] [address] [place] #### LEV #### [facility] , Serum or plasma albumin/glob ulin mass ratioOrdered By: Luz Fiore on 03-11-2023 Albumin/Globulin [Mass ratio] 1.6 {ratio} [facility] Comment on above: Performed By: #### C BC, CMP #### [place] [address] [place] #### LEV #### [facility] , Serum or plasma anion gap de terminationOrdered By: Luz Fiore on 03-11-2023 Anion gap [Moles/Vol] 12.3 mmol/L Normal 6.0-15.0 [facility] Comment on above: Performed By: #### C BC, CMP #### [address] [place] [address] [place] #### LEV #### [facility] , Sodium [Moles/volume] in Ser um or PlasmaOrdered By: Luz Fiore on 03-11-2023 Sodium [Moles/Vol] 139 mmol/L Normal 136-145 [facility] Comment on above: Performed By: #### C NARCISO, CMP #### [facility] [address] [place] [address] [place] #### LEV #### [facility] , Specific gravity Auto test s trip (U) [Rel density]Ordered By: Luz Fiore on 03-11-2023 Specific gravity (U) [Rel density] 1.019 1.001-1.030 [facility] Squamous epithelial cells de tection in urine sediment by light microscopyOrdered By: Luz Fiore on 03-11-2023 Epithelial cells.squamous LM Ql (Urine sed) 1-2 [HPF] 0-2 [facility] Urea nitrogen [Mass/volume] in Serum or PlasmaOrdered By: Luz Fiore on 03-11-2023 Urea nitrogen [Mass/Vol] 10 mg/dL Normal 7-25 [facility] Comment on above: Performed By: #### C NARCISO, CMP #### [place] [address] [place] #### LEV #### [facility] , Urine bacteria detection by automated methodOrdered By: Luz Fiore on 03-11-2023 Bacteria Auto Ql (U) 1+ None Seen [facility] Urine clarity by refractomet ry automatedOrdered By: Luz Fiore on 03-11-2023 Clarity Refractometry automated (U) Clear Clear [facility] Urine glucose measurement by automated test strip (mass/volume)Ordered By: Luz Fiore on 03-11-2023 Glucose Auto test strip (U) [Mass/Vol] Normal mg/dL Normal [facility] Urine hemoglobin detection b y automated test stripOrdered By: Luz Fiore on 03-11-2023 Hemoglobin Auto test strip Ql (U) 1+ Negative [facility] Urine leukocyte esterase det ection by automated test stripOrdered By: Luz Fiore on 03-11-2023 Leukocyte esterase Auto test strip Ql (U) Negative Negative [facility] Urine pH measurement by auto mated test stripOrdered By: Luz Fiore on 03-11-2023 pH (U) 7.0 [pH] Normal 5.0-9.0 [facility] Comment on above: Order Comment: Name Collection Type:: Clean-Voided Midstream Performed By: #### A DDONUAPLUS #### [facility] [address] Urobilinogen Auto test strip (U) [Mass/Vol]Ordered By: Luz Fiore on 03-11-2023 Urobilinogen (U) [Mass/Vol] Normal mg/dL Normal [facility] CBC with Auto Differentialon 02-06-2023 Basophils (Bld) [#/Vol] [facility] [employer] [facility] Basophils/100 WBC (Bld) 0 % 0 - 2 % [facility] Eosinophils (Bld) [#/Vol] [facility] Eosinophils/100 WBC (Bld) 0 % Low 1 - 4 % [facility] Erythrocyte distribution width (RBC) [Ratio] 12.8 % 11.8 - 14.4 % [facility] Hematocrit (Bld) [Volume fraction] 40.5 % 36.3 - 47.1 % [facility] Hemoglobin (Bld) [Mass/Vol] 13.7 g/dL 11.9 - 15.1 g/dL [facility] Immature granulocytes (Bld) [#/Vol] [facility] Immature granulocytes/100 WBC (Bld) 0 % 0 [facility] Interpretation and review of laboratory results Abnormal [facility] Lymphocytes/100 WBC (Bld) 26 % 25 - 45 % [facility] Lymphocytes/100 WBC (Bld) 2.58 % [facility] MCH (RBC) [Entitic mass] 28.5 pg 25.2 - 33.5 pg [facility] MCHC (RBC) [Mass/Vol] 33.8 g/dL 28.4 - 34.8 g/dL [facility] MCV (RBC) [Entitic vol] 84.2 fL 82.6 - 102.9 fL [facility] Monocytes/100 WBC (Bld) 6 % 2 - 8 % [facility] Monocytes/100 WBC (Bld) 0.64 % [facility] Neutrophils/100 WBC (Bld) 68 % High 34 - 64 % [facility] Nucleated RBC/100 WBC (Bld) [Ratio] 0.0 % 0.0 per 100 WBC [facility] Platelet mean volume (Bld) [Entitic vol] 9.4 fL 8.1 - 13.5 fL [facility] Platelets (Bld) [#/Vol] 364 10*3/uL [facility] RBC (Bld) [#/Vol] 4.81 10*6/uL 3.95 - 5.1 1 m/uL [facility] Segmented neutrophils/100 WBC (Bld) 6.71 % [facility] WBC other (Bld) [#/Vol] 10.0 [facility] CBC with Diffon 02-06-2023 Abs. Basophil <0.03 Normal 0.00-0.20 [facility] Comment on above: Performed By: #### Noemy Santamaria CP, CDP #### [facility] [address] [place] [address] [place] [id number] Fire Alarm Repairer: Debbie Molina MD Abs. Eosinophil <0.03 Normal 0.00-0.44 [facility] Comment on above: Performed By: #### Noemy Santamaria CP, CDP #### [facility] [address] [place] [id number] Fire Alarm Repairer: Debbie Molina MD Abs.Imm.Granulocyte <0.03 Normal 0.00-0.[address] [facility] Comment on above: Performed By: #### Noemy Santamaria CP, CDP #### [facility] [address] [place] [address] Fire Alarm Repairer: Debbie Molina MD Abs.Neutrophil (Seg) 6.71 k/uL Normal 1.50-8.10 [facility] Comment on above: Performed By: #### Noemy Santamaria CP, CDP #### [address] [place], [place] [address] Fire Alarm Repairer: Debbie Molina MD Basophils/100 WBC (Bld) 0 % Normal 0-[address] [facility] Comment on above: Performed By: #### Noemy Santamaria CP, CDP #### [address] [place], [facility]83 Fire Alarm Repairer: Debbie Molina MD Eosinophils/100 WBC (Bld) 0 % Low 1-[address] [facility] Comment on above: Performed By: #### Noemy Santamaria CP, CDP #### [address] [place] [address] Fire Alarm Repairer: Debbie Molina MD Erythrocyte distribution width (RBC) [Ratio] 12.8 % Normal 11.8-14.[address] [facility] Comment on above: Performed By: #### Noemy Santamaria CP, CDP #### [address] [place], [facility]83 Fire Alarm Repairer: Debbie Molina MD Hematocrit (Bld) [Volume fraction] 40.5 % Normal 36.3-47.[address] [facility] Comment on above: Performed By: #### Nomey Santamaria CP, CDP #### [address] [place], [facility]83 Fire Alarm Repairer: Debbie Molina MD Hemoglobin (Bld) [Mass/Vol] 13.7 g/dL Normal 11.9-15.[address] [facility] Comment on above: Performed By: #### Noemy Santamaria CP, CDP #### [address] [place], [facility]83 Fire Alarm Repairer: Debbie Molina MD Immature granulocytes/100 WBC (Bld) 0 % Normal [address] [facility] Comment on above: Performed By: #### Noemy Santamaria CP, CDP #### [place] [address] [place] [address] Fire Alarm Repairer: Debbie Molina MD Lymphocytes (Bld) [#/Vol] 2.58 10*3/uL Normal 1.10-3.[address] [facility] Comment on above: Performed By: #### Noemy Santamaria CP, CDP #### [address] [place] [address] Fire Alarm Repairer: Debbie Molina MD Lymphocytes/100 WBC (Bld) 26 % Normal 25-[address] [facility] Comment on above: Performed By: #### Noemy Santamaria CP, CDP #### [address] [place] [address] Fire Alarm Repairer: Debbie Molina MD MCH (RBC) [Entitic mass] 28.5 pg Normal 25.2-33.[address] [facility] Comment on above: Performed By: #### Noemy Santamaria CP, CDP #### [address] [place] [address] Fire Alarm Repairer: Debbie Molina MD MCHC (RBC) [Mass/Vol] 33.8 g/dL Normal 28.4-34.8 [facility] Comment on above: Performed By: #### Noemy Santamaria CP, CDP #### [address] [place] [address] Fire Alarm Repairer: Debbie Molina MD MCV (RBC) [Entitic vol] 84.2 fL Normal 82.6-102.[address] [facility] Comment on above: Performed By: #### Noemy Santamaria CP, CDP #### [address] [place] [address] Fire Alarm Repairer: Debbie Molina MD Monocytes (Bld) [#/Vol] 0.64 10*3/uL Normal 0.10-1.[address] [facility] Comment on above: Performed By: #### Noemy Santamaria CP, CDP #### [address] [place], [place] [id number] Fire Alarm Repairer: Debbie Molina MD Monocytes/100 WBC (Bld) 6 % Normal 2-[address] [facility] Comment on above: Performed By: #### Noemy Santamaria CP, CDP #### [facility] [address] [place] [address] Fire Alarm Repairer: Debbie Molina MD Neutrophil (Seg) 68 % High 34-64 [facility] Comment on above: Performed By: #### Noemy Santamaria CP, CDP #### [facility] [address] [place], [place] [id number] Fire Alarm Repairer: Debbie Molina MD NRBC Automated 0.0 per 100 WBC Normal 0.[address] [facility] Comment on above: Performed By: #### Noemy Santamaria CP, CDP #### [address] [place], [place] [id number] Fire Alarm Repairer: Debbie Molina MD Platelet mean volume (Bld) [Entitic vol] 9.4 fL Normal 8.1-13.[address] [facility] Comment on above: Performed By: #### Noemy Santamaria CP, CDP #### [address] [place], [place] [id number] Fire Alarm Repairer: Debbie Molina MD Platelets (Bld) [#/Vol] 364 10*3/uL Normal 138-[address] [facility] Comment on above: Performed By: #### Noemy Santamaria CP, CDP #### [facility] [address] [place] [address] Dr. [place], [place] [id number] Fire Alarm Repairer: Debbie Molina MD RBC (Bld) [#/Vol] 4.81 10*6/uL Normal 3.95-5.[address] [facility] Comment on above: Performed By: #### Noemy Santamaria CP, CDP #### [facility] [address] [place] [address] Dr. [place], [place] [id number] Fire Alarm Repairer: Debbie Molina MD WBC (Bld) [#/Vol] 10.0 10*3/uL Normal 4.5-13.[address] [facility] Comment on above: Performed By: #### M Rosalio, CP, CDP #### [facility] [address] [place] [address] Fire Alarm Repairer: Debbie Molina MD [facility] Albumin [Mass/Vol] 4.9 g/dL 3.5 - 5.2 g/dL [facility] Albumin/Globulin [Mass ratio] 1.8 {ratio} 1.0 - 2.5 [facility] ALP [Catalytic activity/Vol] 74 U/L 35 - 104 U/L [facility] ALT [Catalytic activity/Vol] 6 U/L 5 - 33 U/L [facility] Anion gap [Moles/Vol] 14 mmol/L 9 - 17 mmol/L [facility] AST [Catalytic activity/Vol] 16 U/L NINF - 32 U/L [facility] Bilirubin [Mass/Vol] 0.4 mg/dL 0.3 - 1 .2 mg/dL [facility] Calcium [Mass/Vol] 9.6 mg/dL 8.6 - 10. 4 mg/dL [facility] Chloride [Moles/Vol] 102 mmol/L 98 - 10 7 mmol/L [facility] CO2 [Moles/Vol] 25 mmol/L 20 - 31 mmol/L [facility] Creatinine [Mass/Vol] 0.7 mg/dL 0.5 - 0.9 mg/dL [facility] GFR/1.73 sq M.predicted MDRD (S/P/Bld) [Vol rate/Area] - PINF [facility] Comment on above: These results are not [...] 111 mg/dL High 70 - 99 mg/dL [facility] Interpretation and review of laboratory results Abnormal [facility] Potassium [Moles/Vol] 4.0 mmol/L 3.7 - 5.3 mmol/L [facility] Protein [Mass/Vol] 7.7 g/dL 6.4 - 8.3 g/dL [facility] Sodium [Moles/Vol] 141 mmol/L 135 - 144 mmol/L [facility] Urea nitrogen [Mass/Vol] 8 mg/dL 6 - 20 mg/dL [facility] Urea nitrogen/Creatinine [Mass ratio] 11 mg/mg 9 - 20 [facility] CT HEAD WO CONTRASTon 2022 CT HEAD [...] Ferdinand Chavarria MD 02/06/[address] [facility] CT Head WO Contraston 2022 1. No acute intracra nial abnormality. [facility] RIS CONSOLIDATED EXAMINATION: CT OF THE HEAD WITHOUT [...] clear. SOFT TISSUES/SKULL: The calvarium is intact. [facility] Ferdinand William MD - 02/06/2023 EXAMINATION: CT OF THE [...] intact. IMPRESSION: 1. No acute intracranial abnormality. [facility] Radiology Study observation (narrative) [facility] CT Head WO ContrastOrdered B y: Ferdinand Chavarria on 02-06-2023 [facility] Work Phone: Comp Metabolic Profon 2022 Albumin [Mass/Vol] 4.9 g/dL Normal 3.5-5.[address] [facility] Comment on above: Performed By: #### M ELAN Santamaria, CDP #### [facility] [address] [place] [address] Fire Alarm Repairer: Debbie Molina MD Albumin/Glob Ratio 1.8 Normal 1.0-2.[address] [facility] Comment on above: Performed By: #### Noemy Santamaria CP, CDP #### [facility] [address] [place], [place] [phone] Fire Alarm Repairer: Debbie Molina MD Alkaline Phos 74 U/L Normal 35-104 [facility] Comment on above: Performed By: #### Noemy Santamaria CP, CDP #### [facility] [address] [place], [place] [phone] Fire Alarm Repairer: Debbie Molina MD ALT [Catalytic activity/Vol] 6 U/L Normal 5-[address] [facility] Comment on above: Performed By: #### Noemy Santamaria CP, CDP #### [facility] [address] [place], [place] [id number] Fire Alarm Repairer: Debbie Molina MD Anion gap [Moles/Vol] 14 mmol/L Normal 9-17 [facility] Comment on above: Performed By: #### Noemy Santamaria CP, CDP #### [facility] [address] [place], [place] [id number] Fire Alarm Repairer: Debbie Molina MD AST [Catalytic activity/Vol] 16 U/L Normal <[address] [facility] Comment on above: Performed By: #### Noemy Santamaria CP, CDP #### [facility] [address] [place], [place] [id number] Fire Alarm Repairer: Debbie Molina MD Bilirubin [Mass/Vol] 0.4 mg/dL Normal 0.3-1.2 [facility] Comment on above: Performed By: #### Noemy Santamaria CP, CDP #### [facility] [address] [place], [place] [id number] Fire Alarm Repairer: Debbie Molina MD BUN/CRE Ratio 11 Normal 9-20 [facility] Comment on above: Performed By: #### Noemy Santamaria CP, CDP #### [facility] [address] [place], [place] [id number] Fire Alarm Repairer: Debbie Molina MD Calcium [Mass/Vol] 9.6 mg/dL Normal 8.6-10.[address] [facility] Comment on above: Performed By: #### M ELAN Santamaria, CDP #### [facility] [address] [place], [place] [id number] Fire Alarm Repairer: Debbie Molina MD Chloride [Moles/Vol] 102 mmol/L Normal 98-107 [facility] Comment on above: Performed By: #### Noemy Santamaria CP, CDP #### [facility] [address] [place], [place] [id number] Fire Alarm Repairer: Debbie Molina MD CO2 [Moles/Vol] 25 mmol/L Normal 20-31 [facility] Comment on above: Performed By: #### Noemy Santamaria CP, CDP #### [facility] [address] [place], [place] [id number] Fire Alarm Repairer: Debbie Molina MD Creatinine [Mass/Vol] 0.7 mg/dL Normal 0.5-0.9 [facility] Comment on above: Performed By: #### Noemy Santamaria CP, CDP #### [facility] [address] [place], [place] [id number] Fire Alarm Repairer: Debbie Molina MD GFR/1.73 sq M.predicted among non-blacks MDRD (S/P/Bld) [Vol rate/Area] mL/min/{1.73_m2} Normal >[address] [facility] Comment on above: Result Comment: These [...] affects renal tubular secretion. Performed By: #### M ELAN Santamaria, CDP #### [facility] [address] [place] [address] Fire Alarm Repairer: Debbie Molina MD Glucose [Mass/Vol] 111 mg/dL High 70-[address] [facility] Comment on above: Performed By: #### Noemy Santamaria CP, CDP #### [facility] [address] [place] [address] Fire Alarm Repairer: Debbie Molina MD Potassium [Moles/Vol] 4.0 mmol/L Normal 3.7-5.3 [facility] Comment on above: Performed By: #### Noemy Santamaria CP, CDP #### [facility] [address] [place], [place] [id number] Fire Alarm Repairer: Debbie Molina MD Protein [Mass/Vol] 7.7 g/dL Normal 6.4-8.[address] [facility] Comment on above: Performed By: #### Noemy Santamaria CP, CDP #### [address] [place] [address] Fire Alarm Repairer: Debbie Molina MD Sodium [Moles/Vol] 141 mmol/L Normal 135-[address] [facility] Comment on above: Performed By: #### Noemy Santamaria CP, CDP #### [facility] [address] [place], [place] [id number] Fire Alarm Repairer: Debbie Molina MD Urea nitrogen [Mass/Vol] 8 mg/dL Normal 6-[address] [facility] Comment on above: Performed By: #### Noemy Santamaria CP, CDP #### [facility] [address] [place] [address] Fire Alarm Repairer: Debbie Molina MD Lactic Acidon 02-06-2023 Lactate [Moles/Vol] 2.5 mmol/L High 0.5-2.[address] [facility] Comment on above: Performed By: #### L ACTIC #### [facility] [address] [place], [place] [id number] Fire Alarm Repairer: Debbie Molina MD Interpretation and review of laboratory results Abnormal [facility] Lactate (BldV) [Moles/Vol] 2.5 mmol/L High 0.5 - 2.2 mmol/L [facility] Magnesiumon 02-06-2023 Magnesium [Mass/Vol] 2.0 mg/dL Normal 1.6-2.6 [facility] Comment on above: Performed By: #### M Rosalio, CP, CDP #### [facility] [address] [place] [address] Fire Alarm Repairer: Debbie Molina MD Magnesium [Mass/Vol] 2.0 mg/dL 1.6 - 2 .6 mg/dL [facility] No Panel Informationon 02-06 [facility] 29on 02-01-2023 29 Addended by: CRISELDA CLAUDIO on: 02/02/2023 08:34 AM Modules accepted: Orders Normal [facility] Office Visiton 02-01-2023 Follow-up visit [id number] Juan Jose Kovacs 2000 F Date Provider Department Center 02/01/2023 SWAPNA LOPEZ [facility]. No family history on file Level of Service:41897 [place] OFFICE/OUTPATIENT ESTABLISHED MOD MDM 30-39 MIN Normal [facility] CT HEAD WO CONon 09-24-2022 CT HEAD [...] by: NAHUN SAMUELS Date: 2022-09-23 23:01 Normal [facility] ER URINE PROFILEon 3 Bilirubin Ql (U) Negative Normal NEGATIVE [facility] Comment on above: Performed By: #### C MP, HSTROPN #### [facility] [address] [place] [address] Dr. Jovanni Maya Clarity (U) CLEAR Normal CLEAR [facility] Comment on above: Performed By: #### C MP, HSTROPN #### [facility] [address] [address] [address] Jovanni Maya Color (U) YELLOW Normal YELLOW [facility] Comment on above: Performed By: #### C MP, HSTROPN #### [facility] [address] [place] [address] Dr. Jovanni ANTOINE A micrscopic examina tion will be performed if indicated. Normal [facility] Comment on above: Performed By: #### C MP, HSTROPN #### [facility] [address] [address] [address] Jovanni Maya Glucose Ql (U) Negative Normal NEGATIVE [facility] Comment on above: Performed By: #### C MP, HSTROPN #### [facility] [address] [place] [address] Dr. Jovanni Maya Hemoglobin Ql (U) Negative Normal NEGATIVE [facility] Comment on above: Performed By: #### C MP, HSTROPN #### [facility] [address] [address] [address] Jovanni Maya Ketones Ql (U) 40 mg/dl Abnormal NEGATIVE [facility] Comment on above: Performed By: #### C MP, HSTROPN #### [facility] [address] [address] [address] Jovanni Maya LEUKOCYTES Negative Normal NEGATIVE [facility] Comment on above: Performed By: #### C MP, HSTROPN #### [facility] [address] [place] [address] Dr. Jovanni Maya Nitrite Ql (U) Negative Normal NEGATIVE [facility] Comment on above: Performed By: #### C MP, HSTROPN #### [facility] [address] [address] [address] Jovanni Maya pH (U) 7.0 [pH] Normal 5-9 [facility] Comment on above: Performed By: #### C MP, HSTROPN #### [facility] [address] [address] [address] Jovanni Maya SPEC GRAVITY 1.015 Normal 1.005-<=1.[address] [place] [address] Comment on above: Performed By: #### C MP, HSTROPN #### [facility] [address] [place] [address] Dr. Jovanni Maya UA PROTEIN Negative Normal NEGATIVE/ TRACE [facility] Comment on above: Performed By: #### C MP, HSTROPN #### [facility] [address] [place] [address] Dr. Jovanni Maya UR MICRO IND NOT INDICATED Normal [facility] Comment on above: Performed By: #### C DANIEL, HSTROPN #### [facility] [address] [place] [address] Dr. Jovnani Maya Urobilinogen Qn (U) 0.2 {Carlos A'U}/dL Normal 0.2 - 1. 0 [facility] Comment on above: Performed By: #### C MP, HSTROPN #### [facility] [address] [place] [address] Dr. Jovanni Maya LACTATE/LACTIC ACIDon 2022 Lactate [Moles/Vol] 0.6 mmol/L Normal 0.4-2.0 [facility] Comment on above: Performed By: #### P REG, ACETON #### [facility] [address] [place] [address] Dr. Jovanni Maya POINT OF CARE GLUCOSEon 08-27 Glucose [Mass/Vol] 123 mg/dL Critically high 74-106 [facility] Comment on above: Performed By: #### P OCGLUC #### [facility] [address] [place] [address] Dr. Jovanni Maya XR CHEST 1 Von [...] DEBBIE BRITT Date: 2022-09-23 22:21 Normal [facility] ACETONE SERUMon 09-23-2022 ACETONE Negative Normal NEGATIVE [facility] Comment on above: Performed By: #### P REG, ACETON #### [facility] [address] [place] [address] Dr. Jovanni Maya CBC AUTO DIFFon 09-23-2022 BASO # 0.0 103/ul Normal 0.0-0.1 [facility] Comment on above: Performed By: #### C BC #### [facility] [address] [place] [address] Dr. Jovanni Maya Basophils/100 WBC (Bld) 0.3 % Normal 0.2-2.0 [facility] Comment on above: Performed By: #### C BC #### [facility] [address] [place] [address] Dr. Jovanni Maya EO # 0.0 103/ul Normal 0.0-0.7 [facility] Comment on above: Performed By: #### C BC #### [facility] [address] [address] [address] Jovanni Maya Eosinophils/100 WBC (Bld) 0.1 % Critically low 0.9-7.0 [facility] Comment on above: Performed By: #### C BC #### [facility] [address] [place] [address] Dr. Jovanni Maya Erythrocyte distribution width (RBC) [Ratio] 12.4 % Normal 11.0-15.0 [facility] Comment on above: Performed By: #### C BC #### [facility] [address] [place] [address] Dr. Jovanni Maya Hematocrit (Bld) [Volume fraction] 39.6 % Normal 36.0-48.0 [facility] Comment on above: Performed By: #### C BC #### [facility] [address] [place] [address] Dr. Jovanni Maya Hemoglobin (Bld) [Mass/Vol] 13.7 g/dL Normal 12.0-16.0 [facility] Comment on above: Performed By: #### C BC #### [facility] [address] [place] [address] Dr. Jovanni Maya IG # 0.02 10e3/ul Normal 0.00-0.03 [facility] Comment on above: Performed By: #### C BC #### [facility] [address] [place] [address] Dr. Jovanni Maya IG % 0.2 % Normal 0.0-0.5 [facility] Comment on above: Performed By: #### C BC #### [facility] [address] [place] [address] Dr. Jovanni Maya LYMPH # 2.2 103/ul Normal 1.2-3.8 [facility] Comment on above: Performed By: #### C BC #### [facility] [address] [place] [address] Dr. Jovanni Maya Lymphocytes/100 WBC (Bld) 24.8 % Normal 20.5-60.0 [facility] Comment on above: Performed By: #### C BC #### [facility] [address] [place] [address] Dr. Jovanni Maya MANUAL DIFF REQ NO Normal [facility] Comment on above: Performed By: #### C BC #### [facility] [address] [place] [address] Dr. Jovanni Maya MCH (RBC) [Entitic mass] 29.7 pg Normal 26.7-34.0 [facility] Comment on above: Performed By: #### C BC #### [facility] [address] [place] [address] Dr. Jovanni Maya MCHC (RBC) [Mass/Vol] 34.6 g/dL Normal 29.9-35.2 [facility] Comment on above: Performed By: #### C BC #### [facility] [address] [address] [address] Jovanni Maya MCV (RBC) [Entitic vol] 85.7 fL Normal 81.0-99.0 [facility] Comment on above: Performed By: #### C BC #### [facility] [address] [address] [address] Jovanni Maya MONO # 0.7 103/ul Normal 0.3-0.8 [facility] Comment on above: Performed By: #### C BC #### [facility] [address] [address] [address] Jovanni Maya Monocytes/100 WBC (Bld) 7.6 % Normal 1.7-12.0 [facility] Comment on above: Performed By: #### C BC #### [facility] [address] [place] [address] Dr. Jovanni Maya NEUT # 5.9 103/ul Normal 1.4-6.5 [facility] Comment on above: Performed By: #### C BC #### [facility] [address] [place] [address] Dr. Jovanni Maya Neutrophils/100 WBC (Bld) 67.0 % Normal 43.0-75.0 [facility] Comment on above: Performed By: #### C BC #### [facility] [address] [place] [address] Dr. Jovanni Maya Platelet mean volume (Bld) [Entitic vol] 9.3 fL Critically low 9.5-13.5 [facility] Comment on above: Performed By: #### C BC #### [facility] [address] [place] [address] Dr. Jovanni Maya PLT 259 103/ul Normal 150-450 [facility] Comment on above: Performed By: #### C BC #### [facility] [address] [place] [address] Dr. Jovanni Maya RBC 4.62 106/ul Normal 4.20-5.40 [facility] Comment on above: Performed By: #### C BC #### [facility] [address] [address] [address] Jovanni Maya WBC 8.8 103/ul Normal 4.0-11.0 [facility] Comment on above: Performed By: #### C BC #### [facility] [address] [place] [address] Dr. Jovanni Maya D-DIMERon 09-23-2022 D-DIMER 0.19 mg/L FEU Normal <=0.59 [facility] Comment on above: Performed By: #### C MP, HSTROPN #### [facility] [address] [place] [address] Dr. Jovanni Maya D-DIMER COMMENTS SEE BELOW Normal [facility] Comment on above: Result Comment: Incr eases [...] and generalized hospitalization. Performed By: #### C DANIEL, HSTROPN #### [facility] [address] [place] [address] Dr. Jovanni Maya GROUP A STREP CULTUREon 08-27 S. pyogenes Ag Ql (Unsp spec) Culture Observations: NEGATIVE FOR GROUP A STREPTOCOCCUS. Normal [facility] Comment on above: Performed By: #### C DANIEL, HSTROPN #### [facility] [address] [place] [address] Dr. Jovanni Maya INFLUENZA A AND B AGon 09-23 INFLUENZA A AG Negative Normal NEGATIVE SEE COMMENT [facility] Comment on above: Performed By: #### I NFLUAB #### [facility] [address] [place] [address] Dr. Jovanni Maya INFLUENZA B AG Negative Normal NEGATIVE SEE COMMENT [facility] Comment on above: Performed By: #### I NFLUAB #### [facility] [address] [place] [address] Dr. Jovanni Maya LACTATE/LACTIC ACIDon 2022 Lactate [Moles/Vol] 3.2 mmol/L Critically high 0.4-2.0 [facility] Comment on above: Performed By: #### L ACT #### [facility] [address] [place] [address] Dr. Jovanni Maya PREG HCG QUALon 09-23-2022 , QUAL Negative Normal NEGATIVE [facility] Comment on above: Performed By: #### P REG, ACETON #### [facility] [address] [place] [address] Dr. Jovanni Maya PROF 14(COMP METB)on 023 Albumin [Mass/Vol] 4.6 g/dL Normal 3.4-5.0 [facility] Comment on above: Performed By: #### C MP, HSTROPN #### [facility] [address] [place] [address] Dr. Jovanni Maya Albumin/Globulin [Mass ratio] 1.5 {ratio} Normal [facility] Comment on above: Performed By: #### C MP, HSTROPN #### [facility] [address] [place] [address] Dr. Jovanni Maya ALP [Catalytic activity/Vol] 59 U/L Normal 46-116 [facility] Comment on above: Performed By: #### C MP, HSTROPN #### [facility] [address] [place] [address] Dr. Jovanni Maya ALT [Catalytic activity/Vol] 11 U/L Critically low 14-59 [facility] Comment on above: Performed By: #### C MP, HSTROPN #### [facility] [address] [place] [address] Dr. Jovanni Maya Anion gap [Moles/Vol] 15.3 mmol/L Normal [facility] Comment on above: Performed By: #### C MP, HSTROPN #### [facility] [address] [place] [address] Dr. Jovanni Maya AST [Catalytic activity/Vol] 10 U/L Critically low 15-37 [facility] Comment on above: Performed By: #### C DANIEL, HSTROPN #### [facility] [address] [place] [address] Dr. Jovanni Maya Bilirubin [Mass/Vol] 0.8 mg/dL Normal 0.2-1.0 [facility] Comment on above: Performed By: #### C DANIEL, HSTROPN #### [facility] [address] [place] [address] Dr. Jovanni Maya Calcium [Mass/Vol] 9.2 mg/dL Normal 8.5-10.1 [facility] Comment on above: Performed By: #### C DANIEL, HSTROPN #### [facility] [address] [place] [address] Dr. Jovanni Maya Chloride [Moles/Vol] 105 mmol/L Normal 98-107 [facility] Comment on above: Performed By: #### C DANIEL, HSTROPN #### [facility] [address] [place] [address] Dr. Jovanni Maya CO2 [Moles/Vol] 24.4 mmol/L Normal 21.0-32.0 [facility] Comment on above: Performed By: #### C DANIEL, HSTROPN #### [facility] [address] [place] [address] Dr. Jovanni Maya Creatinine [Mass/Vol] 0.99 mg/dL Normal 0.55-1.02 [facility] Comment on above: Performed By: #### C DANIEL, HSTROPN #### [facility] [address] [place] [address] Dr. Jovanni Maya EGFR-AF PALAUAN >60 Normal >=60 [facility] Comment on above: Performed By: #### C DANIEL, HSTROPN #### [facility] [address] [place] [address] Dr. Jovanni Maya EGFR-NON AF PALAUAN >60 Normal >=60 [facility] Comment on above: Performed By: #### C DANIEL, HSTROPN #### [facility] [address] [place] [address] Dr. Jovanni Maya Globulin (S) [Mass/Vol] 3.1 g/dL Normal [facility] Comment on above: Performed By: #### C DANIEL, HSTROPN #### [facility] [address] [address] [address] Jovanni Maya Glucose [Mass/Vol] 113 mg/dL Critically high 74-106 [facility] Comment on above: Performed By: #### C MP, HSTROPN #### [facility] [address] [address] [address] Jovanni Maya Potassium [Moles/Vol] 3.7 mmol/L Normal 3.5-5.1 [facility] Comment on above: Performed By: #### C DANIEL, HSTROPN #### [facility] [address] [place] [address] Dr. Jovanni Maya Protein [Mass/Vol] 7.7 g/dL Normal 6.4-8.2 [facility] Comment on above: Performed By: #### C DANIEL, HSTROPN #### [facility] [address] [place] [address] Dr. Jovanni Maya Sodium [Moles/Vol] 141 mmol/L Normal 136-145 [facility] Comment on above: Performed By: #### C DANIEL, HSTROPN #### [facility] [address] [place] [address] Dr. Jovanni Maya Urea nitrogen [Mass/Vol] 10.0 mg/dL Normal 7.0-18.0 [facility] Comment on above: Performed By: #### C MP, HSTROPN #### [facility] [address] [place] [address] Dr. Jovanni Maya Urea nitrogen/Creatinine [Mass ratio] 10.1 mg/mg Normal [facility] Comment on above: Performed By: #### C MP, HSTROPN #### [facility] [address] [place] [address] Dr. Jovanni Maya STREPT SCREENon 09-23-2022 STREP SCREEN A Negative Normal NEGATIVE [facility] Comment on above: Performed By: #### C MP, HSTROPN #### [facility] [address] [place], [place] [address] Dr. Jovanni Maya TROPONIN, HIGH SENSITIVITYon 09-23-2022 HSTROP <4.0 Normal 4.0-51.3 [facility] Comment on above: Result Comment: CUT- OFF POINTS HAVE BEEN ESTABLISHED BASED ON THE FOURTH UNIVERSAL DEFINITIONS OF MYOCARDIAL INFARCTION. THE UPPER REFERENCE LIMIT (URL) OF TROPONIN, DEFINED THE 99TH PERCENTILE OF cTnI DISTRIBUTION IN A REFERENCE POPULATION, HAS BEEN CONFIRMED THE DECISION THRESHOLD FOR [place] DIAGNOSIS. Performed By: #### C MP, HSTROPN #### [facility] [address] [place], [place] [address] Dr. Jovanni Maya Alanine aminotransferase [En zymatic activity/volume] in Serum or PlasmaOrdered By: Federica Bullimore on 09-13-2022 ALT [Catalytic activity/Vol] 5 U/L 7-52 [facility] Albumin [Mass/volume] in Ser um or Plasma by Bromocresol green (BCG) dye binding methoOrdered By: Federica Bullimore on 09-13-2022 Albumin BCG dye [Mass/Vol] 4.3 g/dL 3.5-5.7 [facility] Alkaline phosphatase [Enzyma tic activity/volume] in Serum or PlasmaOrdered By: Federica Bullimore on 09-13-2022 ALP [Catalytic activity/Vol] 45 U/L 34-104 [facility] Aspartate aminotransferase [ Enzymatic activity/volume] in Serum or PlasmaOrdered By: Federica Bullimore on 09-13-2022 AST [Catalytic activity/Vol] 12 U/L 13-39 [facility] Basophils Auto (Bld) [#/Vol] Ordered By: Federica Bullimore on 09-13-2022 Basophils (Bld) [#/Vol] 0.0 10*3/uL 0.0-0.2 [facility] Basophils/100 WBC Auto (Bld) Ordered By: Federica Bullimore on 09-13-2022 Basophils/100 WBC (Bld) 0.7 % . [facility] Bilirubin.total [Mass/volume ] in Serum or PlasmaOrdered By: Federica Bullimore on 09-13-2022 Bilirubin [Mass/Vol] 0.5 mg/dL 0.3-1.0 [facility] Calcium [Mass/volume] in Ser um or PlasmaOrdered By: Federica Bullimore on 09-13-2022 Calcium [Mass/Vol] 9.1 mg/dL 8.6-10.3 [facility] Carbon dioxide, total [Moles /volume] in Serum or PlasmaOrdered By: Federica Bullimore on 09-13-2022 CO2 [Moles/Vol] 30.0 mmol/L 21.0-31.0 [facility] Chloride [Moles/volume] in S alexis or PlasmaOrdered By: Federica Bullimore on 09-13-2022 Chloride [Moles/Vol] 105 mmol/L 98-107 [facility] Creatinine [Mass/volume] in Serum or PlasmaOrdered By: Federica Bullimore on 09-13-2022 Creatinine [Mass/Vol] 0.91 mg/dL 0.60-1.20 [facility] Eosinophils Auto (Bld) [#/Vo l]Ordered By: [facility] on 09-13-2022 Eosinophils (Bld) [#/Vol] 0.0 10*3/uL 0.0-0.45 [facility] Eosinophils/100 WBC Auto (Bl d)Ordered By: [facility] on 09-13-2022 Eosinophils/100 WBC (Bld) 0.5 % . [facility] Erythrocyte distribution wid th Auto (RBC) [Ratio]Ordered By: [facility] on 09-13-2022 Erythrocyte distribution width (RBC) [Ratio] 13.3 % 11.9-15.3 [facility] Globulin Calc (S) [Mass/Vol] Ordered By: [facility] [place] [facility] on 09-13-2022 Globulin (S) [Mass/Vol] 2.7 g/dL [facility] Glucose [Mass/volume] in Ser um or PlasmaOrdered By: Federica Bullimore on 09-13-2022 Glucose [Mass/Vol] 89 mg/dL 74-109 [facility] Comment on above: ADA recommended refe rence rangeRandom Glucose Reference Range is dependent on time and content of last meal. Glucose of more than 200 mg/dL in a nonstressed, ambulatory subject supports the diagnosis of Diabetes Mellitus. Hematocrit Auto (Bld) [Volum e fraction]Ordered By: Federica Wolfe on 09-13-2022 Hematocrit (Bld) [Volume fraction] 37.5 % 34.0-46.4 [facility] Hemoglobin [Mass/volume] in BloodOrdered By: Federica Wolfe on 09-13-2022 Hemoglobin (Bld) [Mass/Vol] 12.7 g/dL 11.8-15.4 [facility] Laboratory - Chemistry and C hemistry - challengeOrdered By: Federica Wolfe on 09-13-2022 GFR/1.73 sq M.predicted MDRD (S/P/Bld) [Vol rate/Area] mL/min/{1.73_m2} [facility] Leukocytes [#/volume] correc manjula for nucleated erythrocytes in Blood by Automated counOrdered By: Federica Wolfe on 09-13-2022 WBC corrected for nucl RBC Auto (Bld) [#/Vol] 5.9 10*3/uL 3.8-11.6 [facility] Lymphocytes Auto (Bld) [#/Vo l]Ordered By: Federica Wolfe on 09-13-2022 Lymphocytes (Bld) [#/Vol] 2.1 10*3/uL 1.00-4.8 [facility] Lymphocytes/100 WBC Auto (Bl d)Ordered By: Federica Wolfe on 09-13-2022 Lymphocytes/100 WBC (Bld) 36.0 % . [facility] MCH Auto (RBC) [Entitic mass ]Ordered By: Federica Wolfe on 09-13-2022 MCH (RBC) [Entitic mass] 29.7 pg 24.7-34.3 [facility] MCHC Auto (RBC) [Mass/Vol]Or dered By: Federica Wolfe on 09-13-2022 MCHC (RBC) [Mass/Vol] 33.8 g/dL 32.0-35.0 [facility] MCV Auto (RBC) [Entitic vol] Ordered By: Federica Alexanderore on 09-13-2022 MCV (RBC) [Entitic vol] 88.0 fL 80-100 [facility] Monocyte distribution width [Entitic volume] in Blood by AutomatedOrdered By: Federica Bullimore on 09-13-2022 Monocyte distribution width Auto (Bld) [Entitic vol] 17.84 % 0.00-20.00 [facility] Monocytes Auto (Bld) [#/Vol] Ordered By: Federica Bullimore on 09-13-2022 Monocytes (Bld) [#/Vol] 0.4 10*3/uL 0.0-0.8 [facility] Monocytes/100 WBC Auto (Bld) Ordered By: Federica Bullimore on 09-13-2022 Monocytes/100 WBC (Bld) 7.0 % . [facility] Neutrophils Auto (Bld) [#/Vo l]Ordered By: Federica Bullimore on 09-13-2022 Neutrophils (Bld) [#/Vol] 3.3 10*3/uL 1.8-7.7 [facility] Neutrophils/100 WBC Auto (Bl d)Ordered By: Federica Bullimore on 09-13-2022 Neutrophils/100 WBC (Bld) 55.8 % . [facility] No Panel InformationOrdered By: Federica Bullimore on 09-13-2022 Pharmacy Creatinine Clearance (Chem 72.40 [facility] Nucleated erythrocytes [Pres ence] in Blood by Automated countOrdered By: Federica Bullimore on 09-13-2022 Nucleated RBC Auto Ql (Bld) 0.1 /100{WBC} 0-0.5 [facility] Platelet mean volume Auto (B ld) [Entitic vol]Ordered By: Federica Bullimore on 09-13-2022 Platelet mean volume (Bld) [Entitic vol] 8.0 fL 6.3-10.7 [facility] Platelets Auto (Bld) [#/Vol] Ordered By: Federica Bullimore on 09-13-2022 Platelets (Bld) [#/Vol] 245 10*3/uL 150-450 [facility] Potassium [Moles/volume] in Serum or PlasmaOrdered By: Federica Bullimore on 09-13-2022 Potassium [Moles/Vol] 3.7 mmol/L 3.5-5.1 [facility] Protein [Mass/volume] in Ser um or PlasmaOrdered By: Federica Bullimore on 09-13-2022 Protein [Mass/Vol] 7.0 g/dL 6.4-8.9 [facility] RBC Auto (Bld) [#/Vol]Ordere d By: Federica Bullimore on 09-13-2022 RBC (Bld) [#/Vol] 4.27 10*6/uL 3.60-5.00 [facility] Serum or plasma albumin/glob ulin mass ratioOrdered By: Federica Bullimore on 09-13-2022 Albumin/Globulin [Mass ratio] 1.6 {ratio} [facility] Serum or plasma anion gap de terminationOrdered By: Federica Bullimore on 09-13-2022 Anion gap [Moles/Vol] 8.7 mmol/L 6.0-15.0 [facility] Sodium [Moles/volume] in Ser um or PlasmaOrdered By: Federica Bullimore on 09-13-2022 Sodium [Moles/Vol] 140 mmol/L 136-145 [facility] Urea nitrogen [Mass/volume] in Serum or PlasmaOrdered By: Federica Bullimore on 09-13-2022 Urea nitrogen [Mass/Vol] 8 mg/dL 7-25 [facility] WBC Auto (Bld) [#/Vol]Ordere d By: Federica Bullimore on 09-13-2022 WBC (Bld) [#/Vol] 5.9 10*3/uL 3.8-11.6 [facility] Automated erythrocytes count in urine sediment (number/area)Ordered By: Shanelle Bowen on 08-30-2022 RBC Auto (Urine sed) [#/Area] 5-9 [HPF] 0-4 [facility] Automated leukocytes count i n urine sediment (number/area)Ordered By: Shanelle Bowen on 08-30-2022 WBC Auto (Urine sed) [#/Area] 5-9 [HPF] 0-4 [facility] Basophils Auto (Bld) [#/Vol] Ordered By: Shanelle Bowen on 08-30-2022 Basophils (Bld) [#/Vol] 0.0 10*3/uL 0.0-0.2 [facility] Basophils/100 WBC Auto (Bld) Ordered By: Shanelle Bowen on 08-30-2022 Basophils/100 WBC (Bld) 0.5 % . [facility] Bilirubin Test strip Ql (U)O rdered By: Shanelle Bowen on 08-30-2022 Bilirubin Ql (U) Negative Negative [facility] Calcium [Mass/volume] in Ser um or PlasmaOrdered By: Shanelle Bowen on 08-30-2022 Calcium [Mass/Vol] 9.4 mg/dL 8.2-10.2 [facility] Carbon dioxide, total [Moles /volume] in Serum or PlasmaOrdered By: Shanelle Bowen on 08-30-2022 CO2 [Moles/Vol] 21.7 mmol/L 22.0-30.0 [facility] Chloride [Moles/volume] in S alexis or PlasmaOrdered By: Shanelle Bowen on 08-30-2022 Chloride [Moles/Vol] 102 mmol/L 95-114 [facility] Color Auto (U)Ordered By: Brian Bowen on 08-30-2022 Color (U) Yellow Yellow [facility] Creatinine and Glomerular fi ltration rate.predicted panel (S/P/Bld)Ordered By: Shanelle Bowen on 08-30-2022 Creatinine [Mass/Vol] 0.99 mg/dL 0.44-1.03 [facility] Eosinophils Auto (Bld) [#/Vo l]Ordered By: Shanelle Bowen on 08-30-2022 Eosinophils (Bld) [#/Vol] 0.1 10*3/uL 0.0-0.45 [facility] Eosinophils/100 WBC Auto (Bl d)Ordered By: Shanelle Bowen on 08-30-2022 Eosinophils/100 WBC (Bld) 1.2 % . [facility] Erythrocyte distribution wid th Auto (RBC) [Ratio]Ordered By: Shanelle Bowen on 08-30-2022 Erythrocyte distribution width (RBC) [Ratio] 13.9 % 11.9-15.3 [facility] Estimated glomerular filtrat ion rate (GFR) non- AmericanOrdered By: Shanelle Bowen on 08-30-2022 GFR/1.73 sq M.predicted among non-blacks MDRD (S/P/Bld) [Vol rate/Area] > 60 mL/Min [facility] Glucose [Mass/volume] in Ser um or PlasmaOrdered By: Shanelle Bowen on 08-30-2022 Glucose [Mass/Vol] 101 mg/dL 70-100 [facility] Comment on above: ADA recommended refe rence rangeRandom Glucose Reference Range is dependent on time and content of last meal. Glucose of more than 200 mg/dL in a nonstressed, ambulatory subject supports the diagnosis of Diabetes Mellitus. Hematocrit Auto (Bld) [Volum e fraction]Ordered By: Shanelle Bowen on 08-30-2022 Hematocrit (Bld) [Volume fraction] 43.8 % 34.0-46.4 [facility] Hemoglobin [Mass/volume] in BloodOrdered By: Shanelle Bowen on 08-30-2022 Hemoglobin (Bld) [Mass/Vol] 14.6 g/dL 11.8-15.4 [facility] Ketones Auto test strip (U) [Mass/Vol]Ordered By: Shanelle Bowen on 08-30-2022 Ketones (U) [Mass/Vol] Trace Negative [facility] Laboratory - Chemistry and C hemistry - challengeOrdered By: Shanelle Bowen on 08-30-2022 Magnesium [Mass/Vol] 2.2 mg/dL 1.6-2.6 [facility] Laboratory - UrinalysisOrder ed By: Shanelle Bowen on 08-30-2022 Hyaline casts LM Ql (Urine sed) 0-8 [LPF] 0-8 [facility] Leukocytes [#/volume] correc manjula for nucleated erythrocytes in Blood by Automated counOrdered By: Shanelle Bowen on 08-30-2022 WBC corrected for nucl RBC Auto (Bld) [#/Vol] 10.5 10*3/uL 3.8-11.6 [facility] Lymphocytes Auto (Bld) [#/Vo l]Ordered By: Shanelle Bowen on 08-30-2022 Lymphocytes (Bld) [#/Vol] 3.9 10*3/uL 1.00-4.8 [facility] Lymphocytes/100 WBC Auto (Bl d)Ordered By: Shanelle Bowen on 08-30-2022 Lymphocytes/100 WBC (Bld) 36.9 % . [facility] MCH Auto (RBC) [Entitic mass ]Ordered By: Shanelle Bowen on 08-30-2022 MCH (RBC) [Entitic mass] 29.5 pg 24.7-34.3 [facility] MCHC Auto (RBC) [Mass/Vol]Or dered By: Shanelle Bowen on 08-30-2022 MCHC (RBC) [Mass/Vol] 33.3 g/dL 32.0-35.0 [facility] MCV Auto (RBC) [Entitic vol] Ordered By: Shanelle Bowen on 08-30-2022 MCV (RBC) [Entitic vol] 88.7 fL 80-100 [facility] Monocyte distribution width [Entitic volume] in Blood by AutomatedOrdered By: Shanelle Bowen on 08-30-2022 Monocyte distribution width Auto (Bld) [Entitic vol] 19.23 % 0.00-20.00 [facility] Monocytes Auto (Bld) [#/Vol] Ordered By: Shanelle Bowen on 08-30-2022 Monocytes (Bld) [#/Vol] 0.6 10*3/uL 0.0-0.8 [facility] Monocytes/100 WBC Auto (Bld) Ordered By: Shanelle Bowen on 08-30-2022 Monocytes/100 WBC (Bld) 5.6 % . [facility] Neutrophils Auto (Bld) [#/Vo l]Ordered By: Shanelle Bowen on 08-30-2022 Neutrophils (Bld) [#/Vol] 5.9 10*3/uL 1.8-7.7 [facility] Neutrophils/100 WBC Auto (Bl d)Ordered By: Shanelle Bowen on 08-30-2022 Neutrophils/100 WBC (Bld) 55.8 % . [facility] Nitrite Test strip Ql (U)Ord ered By: Shanelle Bowen on 08-30-2022 Nitrite Ql (U) Negative Negative [facility] No Panel InformationOrdered By: Shanelle Bowen on 08-30-2022 Lamotrigine (Lamictal) Level 4.2 ug/mL 2.0-20.0 [facility] Comment on above: Detection Limit = 1. 0Performed at: [facility] - [facility] [address] [id number] Director: Sina Hills MD, Phone: [phone] Levetiracetam (Keppra) Level 41.6 ug/mL 10.0-40.0 [facility] Comment on above: Performed at: [facility] [address] [id number] Director: Sina Hills MD, Phone: [phone] Estimated GFR () > 60 mL/Min [facility] Comment on above: GFR estimated refere nce range: According to KDOQI guidelines, <60 ml/min/1.73m2 is sufficient to diagnose a patient with chronic kidney disease. Pharmacy Creatinine Clearance (Chem 67.83 [facility] Nucleated erythrocytes [Pres ence] in Blood by Automated countOrdered By: Shanelle Bowen on 08-30-2022 Nucleated RBC Auto Ql (Bld) 0.1 /100{WBC} 0-0.5 [facility] Platelet mean volume Auto (B ld) [Entitic vol]Ordered By: Shanelle Bowen on 08-30-2022 Platelet mean volume (Bld) [Entitic vol] 8.4 fL 6.3-10.7 [facility] Platelets Auto (Bld) [#/Vol] Ordered By: Shanelle Bowen on 08-30-2022 Platelets (Bld) [#/Vol] 288 10*3/uL 150-450 [facility] Potassium [Moles/volume] in Serum or PlasmaOrdered By: Shanelle Bowen on 08-30-2022 Potassium [Moles/Vol] 3.4 mmol/L 3.5-5.1 [facility] Protein Auto test strip (U) [Mass/Vol]Ordered By: Shanelle Bowen on 08-30-2022 Protein (U) [Mass/Vol] Trace mg/dL Negative [facility] RBC Auto (Bld) [#/Vol]Ordere d By: Shanelle Bowen on 08-30-2022 RBC (Bld) [#/Vol] 4.94 10*6/uL 3.60-5.00 [facility] Serum or plasma anion gap de terminationOrdered By: Shanelle Bowen on 08-30-2022 Anion gap [Moles/Vol] 17.7 mmol/L 6.0-15.0 [facility] Sodium [Moles/volume] in Ser um or PlasmaOrdered By: Shanelle Bowen on 08-30-2022 Sodium [Moles/Vol] 138 mmol/L 136-146 [facility] Specific gravity Auto test s trip (U) [Rel density]Ordered By: Shanelle Bowen on 08-30-2022 Specific gravity (U) [Rel density] 1.016 1.001-1.030 [facility] Squamous epithelial cells de tection in urine sediment by light microscopyOrdered By: Shanelle Bowen on 08-30-2022 Epithelial cells.squamous LM Ql (Urine sed) 1-2 [HPF] 0-2 [facility] Urea nitrogen [Mass/volume] in Serum or PlasmaOrdered By: Shanelle Bowen on 08-30-2022 Urea nitrogen [Mass/Vol] 5 mg/dL 9-23 [facility] Urine bacteria detection by automated methodOrdered By: Shanelle Bowen on 08-30-2022 Bacteria Auto Ql (U) None seen None Seen [facility] Urine clarity by refractomet ry automatedOrdered By: Shanelle Bowen on 08-30-2022 Clarity Refractometry automated (U) Clear Clear [facility] Urine culture routineOrdered By: Shanelle Bowen on 08-30-2022 Bacteria identified Cx Nom (U) 2 Days [facility] Urine glucose measurement by automated test strip (mass/volume)Ordered By: Shanelle Bowen on 08-30-2022 Glucose Auto test strip (U) [Mass/Vol] Normal mg/dL Normal [facility] Urine hemoglobin detection b y automated test stripOrdered By: Shanelle Bowen on 08-30-2022 Hemoglobin Auto test strip Ql (U) 3+ Negative [facility] Urine leukocyte esterase det ection by automated test stripOrdered By: Shanelle Bowen on 08-30-2022 Leukocyte esterase Auto test strip Ql (U) 1+ Negative [facility] Urobilinogen Auto test strip (U) [Mass/Vol]Ordered By: Shanelle Bowen on 08-30-2022 Urobilinogen (U) [Mass/Vol] Normal mg/dL Normal [facility] WBC Auto (Bld) [#/Vol]Ordere d By: Shanelle Bowen on 08-30-2022 WBC (Bld) [#/Vol] 10.5 10*3/uL 3.8-11.6 [facility] pH Auto test strip (U)Ordere d By: Shanelle Bowen on 08-30-2022 pH (U) 6.5 [pH] 5.0-9.0 [facility] Albumin [Mass/volume] in Ser um or PlasmaOrdered By: Roberto Whittaker on 08-18-2022 Albumin [Mass/Vol] 4.6 g/dL 3.2-5.5 [facility] Alkaline phosphatase [Enzyma tic activity/volume] in Serum or PlasmaOrdered By: Roberto Whittaker on 08-18-2022 ALP [Catalytic activity/Vol] 50 U/L 32-92 [facility] Aspartate aminotransferase [ Enzymatic activity/volume] in Serum or PlasmaOrdered By: Roberto Whittaker on 08-18-2022 AST [Catalytic activity/Vol] 19 U/L 10-42 [facility] Basophils Auto (Bld) [#/Vol] Ordered By: Roberto Whittaker on 08-18-2022 Basophils (Bld) [#/Vol] 0.0 10*3/uL 0.0-0.2 [facility] Basophils/100 WBC Auto (Bld) Ordered By: Roberto Whittaker on 08-18-2022 Basophils/100 WBC (Bld) 0.5 % . [facility] Calcium [Mass/volume] in Ser um or PlasmaOrdered By: Roberto Whittaker on 08-18-2022 Calcium [Mass/Vol] 9.4 mg/dL 8.2-10.2 [facility] Carbon dioxide, total [Moles /volume] in Serum or PlasmaOrdered By: Roberto Whittaker on 08-18-2022 CO2 [Moles/Vol] 26.7 mmol/L 22.0-30.0 [facility] Creatinine and Glomerular fi ltration rate.predicted panel (S/P/Bld)Ordered By: Roberto Whittaker on 08-18-2022 Creatinine [Mass/Vol] 0.87 mg/dL 0.44-1.03 [facility] Eosinophils Auto (Bld) [#/Vo l]Ordered By: Roberto Whittaker on 08-18-2022 Eosinophils (Bld) [#/Vol] 0.0 10*3/uL 0.0-0.45 [facility] Eosinophils/100 WBC Auto (Bl d)Ordered By: Roberto Whittaker on 08-18-2022 Eosinophils/100 WBC (Bld) 0.5 % . [facility] Erythrocyte distribution wid th Auto (RBC) [Ratio]Ordered By: Roberto Whittaker on 08-18-2022 Erythrocyte distribution width (RBC) [Ratio] 13.7 % 11.9-15.3 [facility] Estimated glomerular filtrat ion rate (GFR) non- AmericanOrdered By: Roberto Whittaker on 08-18-2022 GFR/1.73 sq M.predicted among non-blacks MDRD (S/P/Bld) [Vol rate/Area] > 60 mL/Min [facility] Globulin Calc (S) [Mass/Vol] Ordered By: Roberto Whittaker on 08-18-2022 Globulin (S) [Mass/Vol] 2.7 g/dL [facility] Hematocrit Auto (Bld) [Volum e fraction]Ordered By: Roberto Whittaker on 08-18-2022 Hematocrit (Bld) [Volume fraction] 39.6 % 34.0-46.4 [facility] Hemoglobin [Mass/volume] in BloodOrdered By: Roberto Whittaker on 08-18-2022 Hemoglobin (Bld) [Mass/Vol] 13.3 g/dL 11.8-15.4 [facility] Laboratory - Chemistry and C hemistry - challengeOrdered By: Roberto Whittaker on 08-18-2022 Magnesium [Mass/Vol] 2.1 mg/dL 1.6-2.6 [facility] Leukocytes [#/volume] correc manjula for nucleated erythrocytes in Blood by Automated counOrdered By: Roberto Whittaker on 08-18-2022 WBC corrected for nucl RBC Auto (Bld) [#/Vol] 6.9 10*3/uL 3.8-11.6 [facility] Lymphocytes Auto (Bld) [#/Vo l]Ordered By: Roberto Whittaker on 08-18-2022 Lymphocytes (Bld) [#/Vol] 2.2 10*3/uL 1.00-4.8 [facility] Lymphocytes/100 WBC Auto (Bl d)Ordered By: Roberto Whittaker on 08-18-2022 Lymphocytes/100 WBC (Bld) 31.2 % . [facility] MCH Auto (RBC) [Entitic mass ]Ordered By: Roberto Whittaker on 08-18-2022 MCH (RBC) [Entitic mass] 29.3 pg 24.7-34.3 [facility] MCHC Auto (RBC) [Mass/Vol]Or dered By: Roberto Whittaker on 08-18-2022 MCHC (RBC) [Mass/Vol] 33.5 g/dL 32.0-35.0 [facility] MCV Auto (RBC) [Entitic vol] Ordered By: Roberto Whittaker on 08-18-2022 MCV (RBC) [Entitic vol] 87.5 fL 80-100 [facility] Monocyte distribution width [Entitic volume] in Blood by AutomatedOrdered By: Roberto Whittaker on 08-18-2022 Monocyte distribution width Auto (Bld) [Entitic vol] 17.66 % 0.00-20.00 [facility] Monocytes Auto (Bld) [#/Vol] Ordered By: Roberto Whittaker on 08-18-2022 Monocytes (Bld) [#/Vol] 0.5 10*3/uL 0.0-0.8 [facility] Monocytes/100 WBC Auto (Bld) Ordered By: Roberto Whittaker on 08-18-2022 Monocytes/100 WBC (Bld) 7.4 % . [facility] Neutrophils Auto (Bld) [#/Vo l]Ordered By: Roberto Whittaker on 08-18-2022 Neutrophils (Bld) [#/Vol] 4.2 10*3/uL 1.8-7.7 [facility] Neutrophils/100 WBC Auto (Bl d)Ordered By: Roberto Whittaker on 08-18-2022 Neutrophils/100 WBC (Bld) 60.4 % . [facility] No Panel InformationOrdered By: Roberto Whittaker on 08-18-2022 Levetiracetam (Keppra) Level 98.1 ug/mL 10.0-40.0 [facility] Comment on above: Performed at: - [address] [id number] Director: Sina Hills MD, Phone: [phone] Estimated GFR () > 60 mL/Min [facility] Comment on above: GFR estimated refere nce range: According to KDOQI guidelines, <60 ml/min/1.73m2 is sufficient to diagnose a patient with chronic kidney disease. Pharmacy Creatinine Clearance (Chem 75.25 [facility] Nucleated erythrocytes [Pres ence] in Blood by Automated countOrdered By: Roberto Whittaker on 08-18-2022 Nucleated RBC Auto Ql (Bld) 0.1 /100{WBC} 0-0.5 [facility] Platelet mean volume Auto (B ld) [Entitic vol]Ordered By: Roberto Whittaker on 08-18-2022 Platelet mean volume (Bld) [Entitic vol] 7.8 fL 6.3-10.7 [facility] Platelets Auto (Bld) [#/Vol] Ordered By: Roberto Whittaker on 08-18-2022 Platelets (Bld) [#/Vol] 237 10*3/uL 150-450 [facility] Prolactin [Mass/volume] in S alexis or PlasmaOrdered By: Roberto Whittaker on 08-18-2022 Prolactin [Mass/Vol] 22.52 ng/mL 3.34-26.72 [facility] Protein [Mass/volume] in Ser um or PlasmaOrdered By: Roberto Whittaker on 08-18-2022 Protein [Mass/Vol] 7.3 g/dL 6.1-7.9 [facility] RBC Auto (Bld) [#/Vol]Ordere d By: Roberto Whittaker on 08-18-2022 RBC (Bld) [#/Vol] 4.53 10*6/uL 3.60-5.00 [facility] Serum or plasma alanine white otransferase measurement without P-5'-P (enzymatic activiOrdered By: Roberto Whittaker on 08-18-2022 ALT No additional P-5'-P [Catalytic activity/Vol] 10 U/L 10-60 [facility] Serum or plasma albumin/glob ulin mass ratioOrdered By: Roberto Whittaker on 08-18-2022 Albumin/Globulin [Mass ratio] 1.7 {ratio} [facility] Serum or plasma anion gap de terminationOrdered By: Roberto Whittaker on 08-18-2022 Anion gap [Moles/Vol] 11.9 mmol/L 6.0-15.0 [facility] Serum or plasma chloride melonie surement (moles/volume)Ordered By: Roberto Whittaker on 08-18-2022 Chloride [Moles/Vol] 103 mmol/L 95-114 [facility] Serum or plasma glucose randi urement (mass/volume)Ordered By: Roberto Whittaker on 08-18-2022 Glucose [Mass/Vol] 83 mg/dL 70-100 [facility] Comment on above: ADA recommended refe rence rangeRandom Glucose Reference Range is dependent on time and content of last meal. Glucose of more than 200 mg/dL in a nonstressed, ambulatory subject supports the diagnosis of Diabetes Mellitus. Serum or plasma potassium me asurement (moles/volume)Ordered By: Roberto Whittaker on 08-18-2022 Potassium [Moles/Vol] 3.6 mmol/L 3.5-5.1 [facility] Serum or plasma sodium measu rement (moles/volume)Ordered By: Roberto Whittaker on 08-18-2022 Sodium [Moles/Vol] 138 mmol/L 136-146 [facility] Serum or plasma total biliru bin measurement (mass/volume)Ordered By: Roberto Whittaker on 08-18-2022 Bilirubin [Mass/Vol] 0.8 mg/dL 0.3-1.2 [facility] Urea nitrogen [Mass/volume] in Serum or PlasmaOrdered By: Roberto Whittaker on 08-18-2022 Urea nitrogen [Mass/Vol] 10 mg/dL 03-19 [facility] WBC Auto (Bld) [#/Vol]Ordere d By: Roberto Whittaker on 08-18-2022 WBC (Bld) [#/Vol] 6.9 10*3/uL 3.8-11.6 [facility] Amphetamine Screen Ql (U)Ord ered By: Attila Nelson on 07-27-2022 Amphetamines Ql (U) Negative Negative [facility] Automated erythrocytes count in urine sediment (number/area)Ordered By: Attila Nelson on 07-27-2022 RBC Auto (Urine sed) [#/Area] 50-100 [HPF] 0-4 [facility] Automated leukocytes count i n urine sediment (number/area)Ordered By: Attila Nelson on 07-27-2022 WBC Auto (Urine sed) [#/Area] 3-4 [HPF] 0-4 [facility] Barbiturates [Presence] in U rineOrdered By: Attila Nelson on 07-27-2022 Barbiturates Ql (U) Negative Negative [facility] Basophils Auto (Bld) [#/Vol] Ordered By: Attila Nelson on 07-27-2022 Basophils (Bld) [#/Vol] 0.0 10*3/uL 0.0-0.2 [facility] Basophils/100 WBC Auto (Bld) Ordered By: Attila Nelson on 07-27-2022 Basophils/100 WBC (Bld) 0.4 % . [facility] Benzodiazepines [Presence] i n UrineOrdered By: Attila Nelson on 07-27-2022 Benzodiazepines Ql (U) Negative Negative [facility] Bilirubin Test strip Ql (U)O rdered By: Attila Nelson on 07-27-2022 Bilirubin Ql (U) Negative Negative [facility] Body fluid albumin measureme nt (mass/volume)Ordered By: Attila Nelson on 07-27-2022 Albumin (Body fld) [Mass/Vol] 4.5 g/dL 3.2-5.5 [facility] Cannabinoids [Presence] in U rine by Screen methodOrdered By: Attila Nelson on 07-27-2022 Cannabinoids Screen Ql (U) Positive Negative [facility] Comment on above: These are unconfirme d results and should not be used for legal purposes. Drug Cut-Off Concentration: AMPH 1000 ng/mL DOMINIQUE 200 ng/mL BRICE 200 ng/mL COCM 300 ng/mL OP 300 ng/mL PCP 25 ng/mL THC 20 ng/mL Color Auto (U)Ordered By: Cezar Nelson on 07-27-2022 Color (U) Yellow Yellow [facility] Creatinine and Glomerular fi ltration rate.predicted panel (S/P/Bld)Ordered By: Attila Nelson on 07-27-2022 Creatinine [Mass/Vol] 0.78 mg/dL 0.44-1.03 [facility] Eosinophils Auto (Bld) [#/Vo l]Ordered By: Attila Nelson on 07-27-2022 Eosinophils (Bld) [#/Vol] 0.0 10*3/uL 0.0-0.45 [facility] Eosinophils/100 WBC Auto (Bl d)Ordered By: Attila Nelson on 07-27-2022 Eosinophils/100 WBC (Bld) 0.5 % . [facility] Erythrocyte distribution wid th Auto (RBC) [Ratio]Ordered By: Attila Nelson on 07-27-2022 Erythrocyte distribution width (RBC) [Ratio] 13.7 % 11.9-15.3 [facility] Estimated glomerular filtrat ion rate (GFR) non- AmericanOrdered By: Attila Nelson on 07-27-2022 GFR/1.73 sq M.predicted among non-blacks MDRD (S/P/Bld) [Vol rate/Area] > 60 mL/Min [facility] Globulin Calc (S) [Mass/Vol] Ordered By: Attila Nelson on 07-27-2022 Globulin (S) [Mass/Vol] 3.1 g/dL [facility] HCG ( test) IA.rapi d Ql (U)Ordered By: Attila Nelson on 07-27-2022 HCG ( test) Ql (U) Negative [facility] Hematocrit Auto (Bld) [Volum e fraction]Ordered By: Attila Nelson on 07-27-2022 Hematocrit (Bld) [Volume fraction] 40.5 % 34.0-46.4 [facility] Hemoglobin [Mass/volume] in BloodOrdered By: Attila Nelson on 07-27-2022 Hemoglobin (Bld) [Mass/Vol] 13.7 g/dL 11.8-15.4 [facility] Ketones Auto test strip (U) [Mass/Vol]Ordered By: Attila Nelson on 07-27-2022 Ketones (U) [Mass/Vol] Negative Negative [facility] Laboratory - Drug toxicology Ordered By: Attila Nelson on 07-27-2022 Opiates Ql (U) Negative Negative [facility] - UrinalysisOrder ed By: Attila Nelson on 07-27-2022 Hyaline casts LM Ql (Urine sed) 0-8 [LPF] 0-8 [facility] Leukocytes [#/volume] correc manjula for nucleated erythrocytes in Blood by Automated counOrdered By: Attila Nelson on 07-27-2022 WBC corrected for nucl RBC Auto (Bld) [#/Vol] 6.8 10*3/uL 3.8-11.6 [facility] Lymphocytes Auto (Bld) [#/Vo l]Ordered By: Attila Nelson on 07-27-2022 Lymphocytes (Bld) [#/Vol] 2.9 10*3/uL 1.00-4.8 [facility] Lymphocytes/100 WBC Auto (Bl d)Ordered By: Attila Nelson on 07-27-2022 Lymphocytes/100 WBC (Bld) 42.2 % . [facility] MCH Auto (RBC) [Entitic mass ]Ordered By: Attila Nelson on 07-27-2022 MCH (RBC) [Entitic mass] 29.6 pg 24.7-34.3 [facility] MCHC Auto (RBC) [Mass/Vol]Or dered By: Attila Nelson on 07-27-2022 MCHC (RBC) [Mass/Vol] 33.8 g/dL 32.0-35.0 [facility] MCV Auto (RBC) [Entitic vol] Ordered By: Attila Nelson on 07-27-2022 MCV (RBC) [Entitic vol] 87.6 fL 80-100 [facility] Monocyte distribution width [Entitic volume] in Blood by AutomatedOrdered By: Attila Nelson on 07-27-2022 Monocyte distribution width Auto (Bld) [Entitic vol] 17.82 % 0.00-20.00 [facility] Monocytes Auto (Bld) [#/Vol] Ordered By: Attila Nelson on 07-27-2022 Monocytes (Bld) [#/Vol] 0.4 10*3/uL 0.0-0.8 [facility] Monocytes/100 WBC Auto (Bld) Ordered By: Attila Nelson on 07-27-2022 Monocytes/100 WBC (Bld) 5.7 % . [facility] Neutrophils Auto (Bld) [#/Vo l]Ordered By: Attila Nelson on 07-27-2022 Neutrophils (Bld) [#/Vol] 3.4 10*3/uL 1.8-7.7 [facility] Neutrophils/100 WBC Auto (Bl d)Ordered By: Attila Nelson on 07-27-2022 Neutrophils/100 WBC (Bld) 51.2 % . [facility] Nitrite Test strip Ql (U)Ord ered By: Attila Nelson on 07-27-2022 Nitrite Ql (U) Negative Negative [facility] No Panel InformationOrdered By: Attila Nelson on 07-27-2022 Estimated GFR () > 60 mL/Min [facility] Comment on above: GFR estimated refere nce range: According to KDOQI guidelines, <60 ml/min/1.73m2 is sufficient to diagnose a patient with chronic kidney disease. Pharmacy Creatinine Clearance (Chem 85.01 [facility] Nucleated erythrocytes [Pres ence] in Blood by Automated countOrdered By: Attila Nelson on 07-27-2022 Nucleated RBC Auto Ql (Bld) 0.2 /100{WBC} 0-0.5 [facility] Phencyclidine Screen Ql (U)O rdered By: Attila Nelson on 07-27-2022 Phencyclidine Ql (U) Negative Negative [facility] Platelet mean volume Auto (B ld) [Entitic vol]Ordered By: Attila Nelson on 07-27-2022 Platelet mean volume (Bld) [Entitic vol] 8.3 fL 6.3-10.7 [facility] Platelets Auto (Bld) [#/Vol] Ordered By: Attila Nelson on 07-27-2022 Platelets (Bld) [#/Vol] 278 10*3/uL 150-450 [facility] Prolactin [Mass/volume] in S alexis or PlasmaOrdered By: Attila Nelson on 07-27-2022 Prolactin [Mass/Vol] 20.59 ng/mL 3.34-26.72 [facility] Protein Auto test strip (U) [Mass/Vol]Ordered By: Attila Nelson on 07-27-2022 Protein (U) [Mass/Vol] Trace mg/dL Negative [facility] Protein [Mass/volume] in Ser um or PlasmaOrdered By: Attila Nelson on 07-27-2022 Protein [Mass/Vol] 7.6 g/dL 6.1-7.9 [facility] RBC Auto (Bld) [#/Vol]Ordere d By: Attila Nelson on 07-27-2022 RBC (Bld) [#/Vol] 4.62 10*6/uL 3.60-5.00 [facility] Serum or plasma alanine white otransferase measurement without P-5'-P (enzymatic activiOrdered By: Attila Nelson on 07-27-2022 ALT No additional P-5'-P [Catalytic activity/Vol] 9 U/L 10-60 [facility] Serum or plasma albumin/glob ulin mass ratioOrdered By: Attila Nelson on 07-27-2022 Albumin/Globulin [Mass ratio] 1.5 {ratio} [facility] Serum or plasma alkaline ignacio sphatase measurement (enzymatic activity/volume)Ordered By: Attila Nelson on 07-27-2022 ALP [Catalytic activity/Vol] 49 U/L 32-92 [facility] Serum or plasma anion gap de terminationOrdered By: Attila Nelson on 07-27-2022 Anion gap [Moles/Vol] 16.6 mmol/L 6.0-15.0 [facility] Serum or plasma aspartate am inotransferase measurement (enzymatic activity/volume)Ordered By: Attila Nelson on 07-27-2022 AST [Catalytic activity/Vol] 20 U/L 10-42 [facility] Serum or plasma calcium randi urement (mass/volume)Ordered By: Attila Nelson on 07-27-2022 Calcium [Mass/Vol] 9.6 mg/dL 8.2-10.2 [facility] Serum or plasma chloride melonie surement (moles/volume)Ordered By: Attila Nelson on 07-27-2022 Chloride [Moles/Vol] 103 mmol/L 95-114 [facility] Serum or plasma glucose randi urement (mass/volume)Ordered By: Attila Nelson on 07-27-2022 Glucose [Mass/Vol] 107 mg/dL 70-100 [facility] Comment on above: ADA recommended refe rence rangeRandom Glucose Reference Range is dependent on time and content of last meal. Glucose of more than 200 mg/dL in a nonstressed, ambulatory subject supports the diagnosis of Diabetes Mellitus. Serum or plasma potassium me asurement (moles/volume)Ordered By: Attila Nelson on 07-27-2022 Potassium [Moles/Vol] 3.8 mmol/L 3.5-5.1 [facility] Serum or plasma sodium measu rement (moles/volume)Ordered By: Attila Nelson on 07-27-2022 Sodium [Moles/Vol] 141 mmol/L 136-146 [facility] Serum or plasma total biliru bin measurement (mass/volume)Ordered By: Attila Nelson on 07-27-2022 Bilirubin [Mass/Vol] 0.5 mg/dL 0.3-1.2 [facility] Serum or plasma total carbon dioxide measurement (moles/volume)Ordered By: Attila Nelson on 07-27-2022 CO2 [Moles/Vol] 25.2 mmol/L 22.0-30.0 [facility] Serum or plasma urea nitroge n measurement (mass/volume)Ordered By: Attila Nelson on 07-27-2022 Urea nitrogen [Mass/Vol] 5 mg/dL 03-19 [facility] Specific gravity Auto test s trip (U) [Rel density]Ordered By: Attila Nelson on 07-27-2022 Specific gravity (U) [Rel density] 1.022 1.001-1.030 [facility] Squamous epithelial cells de tection in urine sediment by light microscopyOrdered By: Attila Nelson on 07-27-2022 Epithelial cells.squamous LM Ql (Urine sed) 1-2 [HPF] 0-2 [facility] Urine bacteria detection by automated methodOrdered By: Attila Nelson on 07-27-2022 Bacteria Auto Ql (U) None seen None Seen [facility] Urine clarity by refractomet ry automatedOrdered By: Attila Nelson on 07-27-2022 Clarity Refractometry automated (U) Cloudy Clear [facility] Urine cocaine detectionOrder ed By: Attila Nelson on 07-27-2022 Cocaine Ql (U) Negative Negative [facility] Urine glucose measurement by automated test strip (mass/volume)Ordered By: Attila Nelson on 07-27-2022 Glucose Auto test strip (U) [Mass/Vol] Normal mg/dL Normal [facility] Urine hemoglobin detection b y automated test stripOrdered By: Attila Nelson on 07-27-2022 Hemoglobin Auto test strip Ql (U) 3+ Negative [facility] Urine leukocyte esterase det ection by automated test stripOrdered By: Attila Nelson on 07-27-2022 Leukocyte esterase Auto test strip Ql (U) 1+ Negative [facility] Urobilinogen Auto test strip (U) [Mass/Vol]Ordered By: Attila Nelson on 07-27-2022 Urobilinogen (U) [Mass/Vol] Normal mg/dL Normal [facility] WBC Auto (Bld) [#/Vol]Ordere d By: Attila Nelson on 07-27-2022 WBC (Bld) [#/Vol] 6.8 10*3/uL 3.8-11.6 [facility] pH Auto test strip (U)Ordere d By: Attila Nelson on 07-27-2022 pH (U) 7.0 [pH] 5.0-9.0 [facility] CBC AUTO DIFFon 06-12-2022 BASO # 0.0 103/ul Normal 0.0-0.1 [facility] Comment on above: Performed By: #### C MP, HSTROPN #### [facility] [address] [place] [address] Dr. Jovanni Maya Basophils/100 WBC (Bld) 0.2 % Normal 0.2-2.0 [facility] Comment on above: Performed By: #### C MP, HSTROPN #### [facility] [address] [place] [address] Dr. Jovanni Maya EO # 0.0 103/ul Normal 0.0-0.7 [facility] Comment on above: Performed By: #### C MP, HSTROPN #### [facility] [address] [place] [address] Dr. Jovanni Maya Eosinophils/100 WBC (Bld) 0.1 % Critically low 0.9-7.0 [facility] Comment on above: Performed By: #### C MP, HSTROPN #### [facility] [address] [place] [address] Dr. Jovanni Maya Erythrocyte distribution width (RBC) [Ratio] 12.7 % Normal 11.0-15.0 [facility] Comment on above: Performed By: #### C MP, HSTROPN #### [facility] [address] [place] [address] Dr. Jovanni Maya Hematocrit (Bld) [Volume fraction] 38.2 % Normal 36.0-48.0 [facility] Comment on above: Performed By: #### C MP, HSTROPN #### [facility] [address] [place] [address] Dr. Jovanni Maya Hemoglobin (Bld) [Mass/Vol] 13.4 g/dL Normal 12.0-16.0 [facility] Comment on above: Performed By: #### C MP, HSTROPN #### [facility] [address] [place] [address] Dr. Jovanni Maya IG # 0.04 10e3/ul Critically high 0.00-0.03 [facility] Comment on above: Performed By: #### C MP, HSTROPN #### [facility] [address] [place] [address] Dr. Jovanni Maya IG % 0.3 % Normal 0.0-0.5 [facility] Comment on above: Performed By: #### C DANIEL HSTROPN #### [facility] [address] [place] [address] Dr. Jovanni Maya LYMPH # 1.6 103/ul Normal 1.2-3.8 [facility] Comment on above: Performed By: #### C DANIEL, HSTROPN #### [facility] [address] [place] [address] Dr. Jovanni Maya Lymphocytes/100 WBC (Bld) 12.9 % Critically low 20.5-60.0 [facility] Comment on above: Performed By: #### C DANIEL, HSTROPN #### [facility] [address] [place] [address] Dr. Jovanni Maya MANUAL DIFF REQ NO Normal [facility] Comment on above: Performed By: #### C DANIEL, HSTROPN #### [facility] [address] [place] [address] Dr. Jovanni Maya MCH (RBC) [Entitic mass] 29.6 pg Normal 26.7-34.0 [facility] Comment on above: Performed By: #### C DANIEL, HSTROPN #### [facility] [address] [place] [address] Dr. Jovanni Maya MCHC (RBC) [Mass/Vol] 35.1 g/dL Normal 29.9-35.2 [facility] Comment on above: Performed By: #### C DANIEL, HSTROPN #### [facility] [address] [place] [address] Dr. Jovanni Maya MCV (RBC) [Entitic vol] 84.5 fL Normal 81.0-99.0 [facility] Comment on above: Performed By: #### C DANIEL, HSTROPN #### [facility] [address] [place] [address] Dr. Jovanni Maya MONO # 0.6 103/ul Normal 0.3-0.8 [facility] Comment on above: Performed By: #### C DANIEL, HSTROPN #### [facility] [address] [address] [address] Jovanni Maya Monocytes/100 WBC (Bld) 4.9 % Normal 1.7-12.0 [facility] Comment on above: Performed By: #### C MP, HSTROPN #### [facility] [address] [address] [address] Jovanni Maya NEUT # 10.4 103/ul Critically high 1.4-6.5 [facility] Comment on above: Performed By: #### C MP, HSTROPN #### [facility] [address] [place] [address] Dr. Jovanni Maya Neutrophils/100 WBC (Bld) 81.6 % Critically high 43.0-75.0 [facility] Comment on above: Performed By: #### C MP, HSTROPN #### [facility] [address] [place] [address] Dr. Jovanni Maya Platelet mean volume (Bld) [Entitic vol] 9.3 fL Critically low 9.5-13.5 [facility] Comment on above: Performed By: #### C MP, HSTROPN #### [facility] [address] [place] [address] Dr. Jovanni Maya PLT 231 103/ul Normal 150-450 [facility] Comment on above: Performed By: #### C MP, HSTROPN #### [facility] [address] [place] [address] Dr. Jovanni Maya RBC 4.52 106/ul Normal 4.20-5.40 [facility] Comment on above: Performed By: #### C MP, HSTROPN #### [facility] [address] [place] [address] Dr. Jovanni Maya WBC 12.7 103/ul Critically high 4.0-11.0 [facility] Comment on above: Performed By: #### C MP, HSTROPN #### [facility] [address] [place] [address] HEAD WO CONon [...] LO TUTTLE Date: 2022-06-12 21:00 Normal [facility] DRUG SCREEN RAPID (URINE)on 06-12-2022 AMP Negative Normal NEGATIVE [facility] Comment on above: Performed By: #### P REG, ACETON #### [facility] [address] [place] [address] Dr. Jovanni Maya BAR Negative Normal NEGATIVE [facility] Comment on above: Performed By: #### P REG, ACETON #### [facility] [address] [place] [address] Dr. Jovanni Maya BUP Negative Normal NEGATIVE [facility] Comment on above: Performed By: #### P REG, ACETON #### [facility] [address] [place] [address] Dr. Jovanni Maya BZO Negative Normal NEGATIVE [facility] Comment on above: Performed By: #### P REG, ACETON #### [facility] [address] [place] [address] Dr. Jovanni Maya DARIEN Negative Normal NEGATIVE [facility] Comment on above: Performed By: #### P REG, ACETON #### [facility] [address] [place] [address] Dr. Jovanni Maya CUT-OFFS SEE BELOW Normal [facility] Comment on above: Result Comment: AMP (Amphetamine): [...] Performed By: #### P REG, ACETON #### [facility] [address] [place] [address] Dr. Jovanni Maya DRUG CUT HEADER DRUG CLASS TEST SYST EM CUT-OFF CONCENTRATIONS ARE FOLLOWS: Normal [facility] Comment on above: Performed By: #### P REG, ACETON #### [facility] [address] [address] [address] Jovanni Maya mAMP Negative Normal NEGATIVE [facility] Comment on above: Performed By: #### P REG, ACETON #### [facility] [address] [place] [address] Dr. Jovanni Maya MTD Negative Normal NEGATIVE [facility] Comment on above: Performed By: #### P REG, ACETON #### [facility] [address] [address] [address] Joavnni Maya OPI Positive Abnormal NEGATIVE [facility] Comment on above: Performed By: #### P REG, ACETON #### [facility] [address] [address] [address] Jovanni Maya OXY Negative Normal NEGATIVE [facility] Comment on above: Performed By: #### P REG, ACETON #### [facility] [address] [place] [address] Dr. Jovanni Maya PCP Negative Normal NEGATIVE [facility] Comment on above: Performed By: #### P REG, ACETON #### [facility] [address] [address] [address] Jovanni Maya PPX Negative Normal NEGATIVE [facility] Comment on above: Performed By: #### P REG, ACETON #### [facility] [address] [place] [address] Dr. Jovanni Maya TCA Negative Normal NEGATIVE [facility] Comment on above: Performed By: #### P REG, ACETON #### [facility] [address] [place] [address] Dr. Jovanni Maya THC Positive Abnormal NEGATIVE [facility] Comment on above: Performed By: #### P REG, ACETON #### [facility] [address] [place] [address] Dr. Jovanni Maya ER URINE PROFILEon 2 Bilirubin Ql (U) Negative Normal NEGATIVE [facility] Comment on above: Performed By: #### C MP, HSTROPN #### [facility] [address] [place] [address] Dr. Jovanni Maya Clarity (U) CLEAR Normal CLEAR [facility] Comment on above: Performed By: #### C MP, HSTROPN #### [facility] [address] [place] [address] Dr. Jovanni Maya Color (U) LT. YELLOW Normal YELLOW [facility] Comment on above: Performed By: #### C MP, HSTROPN #### [facility] [address] [place] [address] Dr. Jovanni Maya ERUAHD A micrscopic examina tion will be performed if indicated. Normal [facility] Comment on above: Performed By: #### C MP, HSTROPN #### [facility] [address] [place] [address] Dr. Jovanni Maya Glucose Ql (U) Negative Normal NEGATIVE [facility] Comment on above: Performed By: #### C MP, HSTROPN #### [facility] [address] [place] [address] Dr. Jovanni Maya Hemoglobin Ql (U) Negative Normal NEGATIVE [facility] Comment on above: Performed By: #### C MP, HSTROPN #### [facility] [address] [place] [address] Dr. Jovanni Maya Ketones Ql (U) Negative Normal NEGATIVE [facility] Comment on above: Performed By: #### C MP, HSTROPN #### [facility] [address] [place] [address] Dr. Jovanni Maya LEUKOCYTES Negative Normal NEGATIVE [facility] Comment on above: Performed By: #### C MP, HSTROPN #### [facility] [address] [place] [address] Dr. Jovanni Maya Nitrite Ql (U) Negative Normal NEGATIVE [facility] Comment on above: Performed By: #### C DANIEL, HSTROPN #### [facility] [address] [place] [address] Dr. Jovanni Maya pH (U) 8.5 [pH] Normal 5-9 [facility] Comment on above: Performed By: #### C DANIEL, HSTROPN #### [facility] [address] [place] [address] Dr. Jovanni Maya SPEC GRAVITY 1.015 Normal 1.005-<=1.0 25 [facility] Comment on above: Performed By: #### C DANIEL, HSTROPN #### [facility] [address] [place] [address] Dr. Jovanni Maya UA PROTEIN Negative Normal NEGATIVE/ TRACE [facility] Comment on above: Performed By: #### C DANIEL, HSTROPN #### [facility] [address] [place] [address] Dr. Jovanni Maya UR MICRO IND NOT INDICATED Normal [facility] Comment on above: Performed By: #### C DANIEL, HSTROPN #### [facility] [address] [place] [address] Dr. Jovanni Maya Urobilinogen Qn (U) 0.2 {Carlos A'U}/dL Normal 0.2 - 1. 0 [facility] Comment on above: Performed By: #### C DANIEL, HSTROPN #### [facility] [address] [place] [address] Dr. Jovanni Maya URon 06-12-2022 , QUAL Negative Normal NEGATIVE [facility] Comment on above: Performed By: #### C MP, HSTROPN #### [facility] [address] [address] [address] Jovanni Maya PROF 14(COMP METB)on 022 Albumin [Mass/Vol] 4.1 g/dL Normal 3.4-5.0 [facility] Comment on above: Performed By: #### C MP, HSTROPN #### [facility] [address] [address] [address] Jovanni Maya Albumin/Globulin [Mass ratio] 1.2 {ratio} Normal [facility] Comment on above: Performed By: #### C MP, HSTROPN #### [facility] [address] [place] [address] Dr. Jovanni Maya ALP [Catalytic activity/Vol] 53 U/L Normal 46-116 [facility] Comment on above: Performed By: #### C MP, HSTROPN #### [facility] [address] [place] [address] Dr. Jovanni Maya ALT [Catalytic activity/Vol] 11 U/L Critically low 14-59 [facility] Comment on above: Performed By: #### C MP, HSTROPN #### [facility] [address] [place] [address] Dr. Jovanni Maya Anion gap [Moles/Vol] 9.5 mmol/L Normal [facility] Comment on above: Performed By: #### C MP, HSTROPN #### [facility] [address] [place] [address] Dr. Jovanni Maya AST [Catalytic activity/Vol] 21 U/L Normal 15-37 [facility] Comment on above: Performed By: #### C MP, HSTROPN #### [facility] [address] [address] [address] Jovanni Maya Bilirubin [Mass/Vol] 0.3 mg/dL Normal 0.2-1.0 [facility] Comment on above: Performed By: #### C MP, HSTROPN #### [facility] [address] [address] [address] Jovanni Maya Calcium [Mass/Vol] 8.7 mg/dL Normal 8.5-10.1 [facility] Comment on above: Performed By: #### C MP, HSTROPN #### [facility] [address] [address] [address] Jovanni Maya Chloride [Moles/Vol] 104 mmol/L Normal 98-107 [facility] Comment on above: Performed By: #### C MP, HSTROPN #### [facility] [address] [address] [address] Jovanni Maya CO2 [Moles/Vol] 28.0 mmol/L Normal 21.0-32.0 [facility] Comment on above: Performed By: #### C MP, HSTROPN #### [facility] [address] [place] [address] Dr. Jovanni Maya Creatinine [Mass/Vol] 0.79 mg/dL Normal 0.55-1.02 [facility] Comment on above: Performed By: #### C MP, HSTROPN #### [facility] [address] [place] [address] Dr. Jovanni Maya EGFR-AF PALAUAN >60 Normal >=60 [facility] Comment on above: Performed By: #### C MP, HSTROPN #### [facility] [address] [place] [address] Dr. Jovanni Maya EGFR-NON AF PALAUAN >60 Normal >=60 [facility] Comment on above: Performed By: #### C MP, HSTROPN #### [facility] [address] [address] [address] Jovanni Maya Globulin (S) [Mass/Vol] 3.5 g/dL Normal [facility] Comment on above: Performed By: #### C MP, HSTROPN #### [facility] [address] [address] [address] Jovanni Maya Glucose [Mass/Vol] 102 mg/dL Normal 74-106 [facility] Comment on above: Performed By: #### C DANIEL, HSTROPN #### [facility] [address] [place] [address] Dr. Jovanni Maya Potassium [Moles/Vol] 3.5 mmol/L Normal 3.5-5.1 [facility] Comment on above: Performed By: #### C DANIEL, HSTROPN #### [facility] [address] [place] [address] Dr. Jovanni Maya Protein [Mass/Vol] 7.6 g/dL Normal 6.4-8.2 [facility] Comment on above: Performed By: #### C DANIEL HSTROPN #### [facility] [address] [place] [address] Dr. Jovanni Maya Sodium [Moles/Vol] 138 mmol/L Normal 136-145 [facility] Comment on above: Performed By: #### C DANIEL HSTROPN #### [facility] [address] [place] [address] Dr. Jovanni Maya Urea nitrogen [Mass/Vol] 9.0 mg/dL Normal 7.0-18.0 [facility] Comment on above: Performed By: #### C DANIEL HSTROPN #### [facility] [address] [place] [address] Dr. Jovanni Maya Urea nitrogen/Creatinine [Mass ratio] 11.4 mg/mg Normal [facility] Comment on above: Performed By: #### C DANIEL HSTROPN #### [facility] [address] [place] [address] Dr. Jovanni Maya CBC AUTO DIFFon 05-24-2022 BASO # 0.0 103/ul Normal 0.0-0.1 [facility] Comment on above: Performed By: #### C DANIEL, HSTROPN #### [facility] [address] [place] [address] Dr. Jovanni Maya Basophils/100 WBC (Bld) 0.1 % Critically low 0.2-2.0 [facility] Comment on above: Performed By: #### C DANIEL HSTROPN #### [facility] [address] [place] [address] Dr. Jovanni Maya EO # 0.0 103/ul Normal 0.0-0.7 [facility] Comment on above: Performed By: #### C MP, HSTROPN #### [facility] [address] [place] [address] Dr. Jovanni Maya Eosinophils/100 WBC (Bld) 0.1 % Critically low 0.9-7.0 [facility] Comment on above: Performed By: #### C DANIEL, HSTROPN #### [facility] [address] [place] [address] Dr. Jovanni Maya Erythrocyte distribution width (RBC) [Ratio] 13.1 % Normal 11.0-15.0 [facility] Comment on above: Performed By: #### C DANIEL, HSTROPN #### [facility] [address] [place] [address] Dr. Jovanni Maya Hematocrit (Bld) [Volume fraction] 37.2 % Normal 36.0-48.0 [facility] Comment on above: Performed By: #### C DANIEL, HSTROPN #### [facility] [address] [place] [address] Dr. Jovanni Maya Hemoglobin (Bld) [Mass/Vol] 13.0 g/dL Normal 12.0-16.0 [facility] Comment on above: Performed By: #### C DANIEL, HSTROPN #### [facility] [address] [place] [address] Dr. Jovanni Maya IG # 0.02 10e3/ul Normal 0.00-0.03 [facility] Comment on above: Performed By: #### C DANIEL, HSTROPN #### [facility] [address] [place] [address] Dr. Jovanni Maya IG % 0.3 % Normal 0.0-0.5 [facility] Comment on above: Performed By: #### C DANIEL, HSTROPN #### [facility] [address] [place] [address] Dr. Jovanni Maya LYMPH # 1.4 103/ul Normal 1.2-3.8 [facility] Comment on above: Performed By: #### C DANIEL, HSTROPN #### [facility] [address] [place] [address] Dr. Jovanni Maya Lymphocytes/100 WBC (Bld) 20.7 % Normal 20.5-60.0 [facility] Comment on above: Performed By: #### C DANIEL, HSTROPN #### [facility] [address] [place] [address] Dr. Jovanni Maya MANUAL DIFF REQ NO Normal [facility] Comment on above: Performed By: #### C DANIEL, HSTROPN #### [facility] [address] [place] [address] Dr. Jovanni Maya MCH (RBC) [Entitic mass] 29.5 pg Normal 26.7-34.0 [facility] Comment on above: Performed By: #### C DANIEL, HSTROPN #### [facility] [address] [place] [address] Dr. Jovanni Maya MCHC (RBC) [Mass/Vol] 34.9 g/dL Normal 29.9-35.2 [facility] Comment on above: Performed By: #### C DANIEL, HSTROPN #### [facility] [address] [place] [address] Dr. Jovanni Maya MCV (RBC) [Entitic vol] 84.4 fL Normal 81.0-99.0 [facility] Comment on above: Performed By: #### C DANIEL, HSTROPN #### [facility] [address] [place] [address] Dr. Jovanni Maya MONO # 0.5 103/ul Normal 0.3-0.8 [facility] Comment on above: Performed By: #### C DANIEL, HSTROPN #### [facility] [address] [place] [address] Dr. Jovanni Maya Monocytes/100 WBC (Bld) 7.8 % Normal 1.7-12.0 [facility] Comment on above: Performed By: #### C DANIEL, HSTROPN #### [facility] [address] [place] [address] Dr. Jovanni Maya NEUT # 4.8 103/ul Normal 1.4-6.5 [facility] Comment on above: Performed By: #### C MP, HSTROPN #### [facility] [address] [place] [address] Dr. Jovanni Maya Neutrophils/100 WBC (Bld) 71.0 % Normal 43.0-75.0 [facility] Comment on above: Performed By: #### C MP, HSTROPN #### [facility] [address] [place] [address] Dr. Jovanni Maya Platelet mean volume (Bld) [Entitic vol] 9.5 fL Normal 9.5-13.5 [facility] Comment on above: Performed By: #### C MP, HSTROPN #### [facility] [address] [place] [address] Dr. Jovanni Maya PLT 228 103/ul Normal 150-450 [facility] Comment on above: Performed By: #### C MP, HSTROPN #### [facility] [address] [place] [address] Dr. Jovanni Maya RBC 4.41 106/ul Normal 4.20-5.40 [facility] Comment on above: Performed By: #### C MP, HSTROPN #### [facility] [address] [place] [address] Dr. Jovanni Maya WBC 6.8 103/ul Normal 4.0-11.0 [facility] Comment on above: Performed By: #### C MP, HSTROPN #### [facility] [address] [place] [address] Dr. Jovanni Maya PROF 14(COMP METB)on 022 Albumin [Mass/Vol] 4.0 g/dL Normal 3.4-5.0 [facility] Comment on above: Performed By: #### C MP, HSTROPN #### [facility] [address] [place] [address] Dr. Jovanni Maya Albumin/Globulin [Mass ratio] 9.3 {ratio} Normal [facility] Comment on above: Performed By: #### C DANIEL, HSTROPN #### [facility] [address] [place] [address] Dr. Jovanni Maya ALP [Catalytic activity/Vol] 56 U/L Normal 46-116 [facility] Comment on above: Performed By: #### C DANIEL, HSTROPN #### [facility] [address] [place] [address] Dr. Jovanni Maya ALT [Catalytic activity/Vol] 8 U/L Critically low 14-59 [facility] Comment on above: Performed By: #### C DANIEL, HSTROPN #### [facility] [address] [place] [address] Dr. Jovanni Maya Anion gap [Moles/Vol] 9.3 mmol/L Normal [facility] Comment on above: Performed By: #### C DANIEL HSTROPN #### [facility] [address] [place] [address] Dr. Jovanni Maay AST [Catalytic activity/Vol] 12 U/L Critically low 15-37 [facility] Comment on above: Performed By: #### C DANIEL, HSTROPN #### [facility] [address] [place] [address] Dr. Jovanni Maya Bilirubin [Mass/Vol] 0.3 mg/dL Normal 0.2-1.0 [facility] Comment on above: Performed By: #### C DANIEL, HSTROPN #### [facility] [address] [place] [address] Dr. Jovanni Maya Calcium [Mass/Vol] 8.6 mg/dL Normal 8.5-10.1 [facility] Comment on above: Performed By: #### C DANIEL, HSTROPN #### [facility] [address] [place] [address] Dr. Jovanni Maya Chloride [Moles/Vol] 104 mmol/L Normal 98-107 [facility] Comment on above: Performed By: #### C DANIEL, HSTROPN #### [facility] [address] [address] [address] Jovanni Maya CO2 [Moles/Vol] 28.1 mmol/L Normal 21.0-32.0 [facility] Comment on above: Performed By: #### C MP, HSTROPN #### [facility] [address] [address] [address] Jovanni Maya Creatinine [Mass/Vol] 0.71 mg/dL Normal 0.55-1.02 [facility] Comment on above: Performed By: #### C MP, HSTROPN #### [facility] [address] [address] [address] Jovanni Maya EGFR-AF PALAUAN >60 Normal >=60 [facility] Comment on above: Performed By: #### C MP, HSTROPN #### [facility] [address] [address] [address] Jovanni Maya EGFR-NON AF PALAUAN >60 Normal >=60 [facility] Comment on above: Performed By: #### C MP, HSTROPN #### [facility] [address] [address] [address] Jovanni Maya Globulin (S) [Mass/Vol] 3.4 g/dL Normal [facility] Comment on above: Performed By: #### C MP, HSTROPN #### [facility] [address] [address] [address] Jovanni Maya Glucose [Mass/Vol] 109 mg/dL Critically high 74-106 [facility] Comment on above: Performed By: #### C MP, HSTROPN #### [facility] [address] [address] [address] Jovanni Maya Potassium [Moles/Vol] 3.4 mmol/L Critically low 3.5-5.1 [facility] Comment on above: Performed By: #### C MP, HSTROPN #### [facility] [address] [address] [address] Jovanni Maya Protein [Mass/Vol] 7.4 g/dL Normal 6.4-8.2 [facility] Comment on above: Performed By: #### C MP, HSTROPN #### [facility] [address] [address] [address] Jovanni Maya Sodium [Moles/Vol] 138 mmol/L Normal 136-145 [facility] Comment on above: Performed By: #### C MP, HSTROPN #### [facility] [address] [address] [address] Jovanni Maya Urea nitrogen [Mass/Vol] 12.0 mg/dL Normal 7.0-18.0 [facility] Comment on above: Performed By: #### C MP, HSTROPN #### [facility] [address] [address] [address] Jovanni Maya Urea nitrogen/Creatinine [Mass ratio] 16.9 mg/mg Normal [facility] Comment on above: Performed By: #### C MP, HSTROPN #### [facility] [address] [address] [address] Jovanni Maya Basophils Auto (Bld) [#/Vol] Ordered By: Aman Cortes on 05-18-2022 Basophils (Bld) [#/Vol] 0.0 10*3/uL 0.0-0.2 [facility] Basophils/100 WBC Auto (Bld) Ordered By: Aman Cortes on 05-18-2022 Basophils/100 WBC (Bld) 0.3 % . [facility] Creatinine and Glomerular fi ltration rate.predicted panel (S/P/Bld)Ordered By: Aman Cortes on 05-18-2022 Creatinine [Mass/Vol] 0.74 mg/dL 0.44-1.03 [facility] Eosinophils Auto (Bld) [#/Vo l]Ordered By: Aman Cortes on 05-18-2022 Eosinophils (Bld) [#/Vol] 0.1 10*3/uL 0.0-0.45 [facility] Eosinophils/100 WBC Auto (Bl d)Ordered By: Aman Cortes on 05-18-2022 Eosinophils/100 WBC (Bld) 0.9 % . [facility] Erythrocyte distribution wid th Auto (RBC) [Ratio]Ordered By: Aman Cortes on 05-18-2022 Erythrocyte distribution width (RBC) [Ratio] 14.5 % 11.9-15.3 [facility] Estimated glomerular filtrat ion rate (GFR) non- AmericanOrdered By: Aman Cortes on 05-18-2022 GFR/1.73 sq M.predicted among non-blacks MDRD (S/P/Bld) [Vol rate/Area] > 60 mL/Min [facility] Hematocrit Auto (Bld) [Volum e fraction]Ordered By: Aman Cortes on 05-18-2022 Hematocrit (Bld) [Volume fraction] 40.4 % 34.0-46.4 [facility] Hemoglobin [Mass/volume] in BloodOrdered By: Aman Cortes on 05-18-2022 Hemoglobin (Bld) [Mass/Vol] 13.0 g/dL 11.8-15.4 [facility] - Hematology and Cell countsOrdered By: Aman Cortes on 05-18-2022 Nucleated RBC/100 WBC (Bld) [Ratio] 0.1 % 0-0.5 [facility] Leukocytes [#/volume] in Blo od by Automated countOrdered By: Aman Cortes on 05-18-2022 WBC (Bld) [#/Vol] 5.6 10*3/uL 4.5-11.0 [facility] Lymphocytes Auto (Bld) [#/Vo l]Ordered By: Aman Cortes on 05-18-2022 Lymphocytes (Bld) [#/Vol] 2.0 10*3/uL 1.00-4.8 [facility] Lymphocytes/100 WBC Auto (Bl d)Ordered By: Aman Cortes on 05-18-2022 Lymphocytes/100 WBC (Bld) 36.8 % . [facility] MCH Auto (RBC) [Entitic mass ]Ordered By: Aman Cortes on 05-18-2022 MCH (RBC) [Entitic mass] 28.6 pg 24.7-34.3 [facility] MCHC Auto (RBC) [Mass/Vol]Or dered By: Aman Cortes on 05-18-2022 MCHC (RBC) [Mass/Vol] 32.3 g/dL 32.0-35.0 [facility] MCV Auto (RBC) [Entitic vol] Ordered By: Aman Cortes on 05-18-2022 MCV (RBC) [Entitic vol] 88.4 fL 80-100 [facility] Monocytes Auto (Bld) [#/Vol] Ordered By: Aman Cortes on 05-18-2022 Monocytes (Bld) [#/Vol] 0.4 10*3/uL 0.0-0.8 [facility] Monocytes/100 WBC Auto (Bld) Ordered By: Aman Cortes on 05-18-2022 Monocytes/100 WBC (Bld) 7.3 % . [facility] Neutrophils Auto (Bld) [#/Vo l]Ordered By: Aman Cortes on 05-18-2022 Neutrophils (Bld) [#/Vol] 3.0 10*3/uL 1.8-7.7 [facility] Neutrophils/100 WBC Auto (Bl d)Ordered By: Aman Cortes on 05-18-2022 Neutrophils/100 WBC (Bld) 54.7 % . [facility] No Panel InformationOrdered By: Aman Cortes on 05-18-2022 Estimated GFR () > 60 mL/Min [facility] Comment on above: GFR estimated refere nce range: According to KDOQI guidelines, <60 ml/min/1.73m2 is sufficient to diagnose a patient with chronic kidney disease. Pharmacy Creatinine Clearance (Chem 92.05 [facility] Platelet mean volume Auto (B ld) [Entitic vol]Ordered By: Aman Cortes on 05-18-2022 Platelet mean volume (Bld) [Entitic vol] 8.1 fL 6.3-10.7 [facility] Platelets Auto (Bld) [#/Vol] Ordered By: Aman Cortes on 05-18-2022 Platelets (Bld) [#/Vol] 268 10*3/uL 150-450 [facility] Prolactin [Mass/volume] in S alexis or PlasmaOrdered By: Aman Cortes on 05-18-2022 Prolactin [Mass/Vol] 8.64 ng/mL 3.34-26.72 [facility] RBC Auto (Bld) [#/Vol]Ordere d By: Aman Cortes on 05-18-2022 RBC (Bld) [#/Vol] 4.57 10*6/uL 3.60-5.00 [facility] Serum or plasma anion gap de terminationOrdered By: Aman Cortes on 05-18-2022 Anion gap [Moles/Vol] 10.1 mmol/L 6.0-15.0 [facility] Serum or plasma calcium randi urement (mass/volume)Ordered By: Aman Cortes on 05-18-2022 Calcium [Mass/Vol] 9.0 mg/dL 8.2-10.2 [facility] Serum or plasma chloride melonie surement (moles/volume)Ordered By: Aman Cortes on 05-18-2022 Chloride [Moles/Vol] 103 mmol/L 95-114 [facility] Serum or plasma glucose randi urement (mass/volume)Ordered By: Aman Cortes on 05-18-2022 Glucose [Mass/Vol] 110 mg/dL 70-100 [facility] Comment on above: ADA recommended refe rence rangeRandom Glucose Reference Range is dependent on time and content of last meal. Glucose of more than 200 mg/dL in a nonstressed, ambulatory subject supports the diagnosis of Diabetes Mellitus. Serum or plasma potassium me asurement (moles/volume)Ordered By: Aman Cortes on 05-18-2022 Potassium [Moles/Vol] 3.8 mmol/L 3.5-5.1 [facility] Serum or plasma sodium measu rement (moles/volume)Ordered By: Aman Cortes on 05-18-2022 Sodium [Moles/Vol] 138 mmol/L 136-146 [facility] Serum or plasma total carbon dioxide measurement (moles/volume)Ordered By: Aman Cortes on 05-18-2022 CO2 [Moles/Vol] 28.7 mmol/L 22.0-30.0 [facility] Serum or plasma urea nitroge n measurement (mass/volume)Ordered By: Aman Cortes on 05-18-2022 Urea nitrogen [Mass/Vol] 10 mg/dL 9-23 [facility] CBC AUTO DIFFon 05-15-2022 BASO # 0.0 103/ul Normal 0.0-0.1 [facility] Comment on above: Performed By: #### P REG, ACETON #### [facility] [address] [place] [address] Dr. Jovanni Maya Basophils/100 WBC (Bld) 0.3 % Normal 0.2-2.0 [facility] Comment on above: Performed By: #### P REG, ACETON #### [facility] [address] [place] [address] Dr. Jovanni Maya EO # 0.0 103/ul Normal 0.0-0.7 [facility] Comment on above: Performed By: #### P REG, ACETON #### [facility] [address] [place] [address] Dr. Jovanni Maya Eosinophils/100 WBC (Bld) 0.3 % Critically low 0.9-7.0 [facility] Comment on above: Performed By: #### P REG, ACETON #### [facility] [address] [place] [address] Dr. Jovanni Maya Erythrocyte distribution width (RBC) [Ratio] 13.1 % Normal 11.0-15.0 [facility] Comment on above: Performed By: #### P REG, ACETON #### [facility] [address] [place] [address] Dr. Jovanni Maya Hematocrit (Bld) [Volume fraction] 39.5 % Normal 36.0-48.0 [facility] Comment on above: Performed By: #### P REG, ACETON #### [facility] [address] [place] [address] Dr. Jovanni Maya Hemoglobin (Bld) [Mass/Vol] 13.5 g/dL Normal 12.0-16.0 [facility] Comment on above: Performed By: #### P REG, ACETON #### [facility] [address] [place] [address] Dr. Jovanni Maya IG # 0.04 10e3/ul Critically high 0.00-0.03 [facility] Comment on above: Performed By: #### P REG, ACETON #### [facility] [address] [address] [address] Jovanni Maya IG % 0.4 % Normal 0.0-0.5 [facility] Comment on above: Performed By: #### P REG, ACETON #### [facility] [address] [address] [address] Jovanni Maya LYMPH # 1.9 103/ul Normal 1.2-3.8 [facility] Comment on above: Performed By: #### P REG, ACETON #### [facility] [address] [place] [address] Dr. Jovanni Maya Lymphocytes/100 WBC (Bld) 17.4 % Critically low 20.5-60.0 [facility] Comment on above: Performed By: #### P REG, ACETON #### [facility] [address] [place] [address] Dr. Jovanni Maya MANUAL DIFF REQ NO Normal [facility] Comment on above: Performed By: #### P REG, ACETON #### [facility] [address] [place] [address] Dr. Jovanni Maya MCH (RBC) [Entitic mass] 29.3 pg Normal 26.7-34.0 [facility] Comment on above: Performed By: #### P REG, ACETON #### [facility] [address] [place] [address] Dr. Jovanni Maya MCHC (RBC) [Mass/Vol] 34.2 g/dL Normal 29.9-35.2 [facility] Comment on above: Performed By: #### P REG, ACETON #### [facility] [address] [place] [address] Dr. Jovanni Maya MCV (RBC) [Entitic vol] 85.7 fL Normal 81.0-99.0 [facility] Comment on above: Performed By: #### P REG, ACETON #### [facility] [address] [place] [address] Dr. Jovanni Maya MONO # 0.6 103/ul Normal 0.3-0.8 [facility] Comment on above: Performed By: #### P REG, ACETON #### [facility] [address] [address] [address] Jovanni Maya Monocytes/100 WBC (Bld) 5.0 % Normal 1.7-12.0 [facility] Comment on above: Performed By: #### P REG, ACETON #### [facility] [address] [place] [address] Dr. Jovanni Maya NEUT # 8.4 103/ul Critically high 1.4-6.5 [facility] Comment on above: Performed By: #### P REG, ACETON #### [facility] [address] [place] [address] Dr. Jovanni Maya Neutrophils/100 WBC (Bld) 76.6 % Critically high 43.0-75.0 [facility] Comment on above: Performed By: #### P REG, ACETON #### [facility] [address] [place] [address] Dr. Jovanni Maya Platelet mean volume (Bld) [Entitic vol] 10.5 fL Normal 9.5-13.5 [facility] Comment on above: Performed By: #### P REG, ACETON #### [facility] [address] [place] [address] Dr. Jovanni Maya PLT 279 103/ul Normal 150-450 [facility] Comment on above: Performed By: #### P REG, ACETON #### [facility] [address] [place] [address] Dr. Jovanni Maya RBC 4.61 106/ul Normal 4.20-5.40 [facility] Comment on above: Performed By: #### P REG, ACETON #### [facility] [address] [place] [address] Dr. Jovanni Maya WBC 11.0 103/ul Normal 4.0-11.0 [facility] Comment on above: Performed By: #### P REG, ACETON #### [facility] [address] [place] [address] Dr. Jovanni Maya ER URINE PROFILEon 2 Bilirubin Ql (U) Negative Normal NEGATIVE [facility] Comment on above: Performed By: #### C MP, HSTROPN #### [facility] [address] [address] [address] Jovanni Maya Clarity (U) CLEAR Normal CLEAR [facility] Comment on above: Performed By: #### C MP, HSTROPN #### [facility] [address] [address] [address] Jovanni Maya Color (U) LT. YELLOW Normal YELLOW [facility] Comment on above: Performed By: #### C MP, HSTROPN #### [facility] [address] [address] [address] Jovanni Maya ERUAHCharles A micrscopic examina tion will be performed if indicated. Normal [facility] Comment on above: Performed By: #### C MP, HSTROPN #### [facility] [address] [place] [address] Dr. Jovanni Maya Glucose Ql (U) Negative Normal NEGATIVE [facility] Comment on above: Performed By: #### C MP, HSTROPN #### [facility] [address] [address] [address] Jovanni Maya Hemoglobin Ql (U) Negative Normal NEGATIVE [facility] Comment on above: Performed By: #### C MP, HSTROPN #### [facility] [address] [address] [address] Jovanni Maya Ketones Ql (U) Negative Normal NEGATIVE [facility] Comment on above: Performed By: #### C MP, HSTROPN #### [facility] [address] [address] [address] Jovanni Maya LEUKOCYTES Negative Normal NEGATIVE [facility] Comment on above: Performed By: #### C MP, HSTROPN #### [facility] [address] [address] [address] Jovanni Maya Nitrite Ql (U) Negative Normal NEGATIVE [facility] Comment on above: Performed By: #### C MP, HSTROPN #### [facility] [address] [place] [address] Dr. Jovanni Maya pH (U) 7.0 [pH] Normal 5-9 [facility] Comment on above: Performed By: #### C DANIEL, HSTROPN #### [facility] [address] [place] [address] Dr. Jovanni Maya SPEC GRAVITY 1.010 Normal 1.005-<=1.0 25 [facility] Comment on above: Performed By: #### C DANIEL, HSTROPN #### [facility] [address] [place] [address] Dr. Jovanni Maya UA PROTEIN Negative Normal NEGATIVE/ TRACE [facility] Comment on above: Performed By: #### C DANIEL, HSTROPN #### [facility] [address] [place] [address] Dr. Jovanni Maya UR MICRO IND NOT INDICATED Normal [facility] Comment on above: Performed By: #### C DANIEL HSTROPN #### [facility] [address] [place] [address] Dr. Jovanni Maya Urobilinogen Qn (U) 0.2 {Carlos A'U}/dL Normal 0.2 - 1. 0 [facility] Comment on above: Performed By: #### C DANIEL, HSTROPN #### [facility] [address] [place] [address] Dr. Jovanni Maya PROF 14(COMP METB)on 022 Albumin [Mass/Vol] 3.6 g/dL Normal 3.4-5.0 [facility] Comment on above: Performed By: #### P REG, ACETON #### [facility] [address] [place] [address] Dr. Jovanni Maya Albumin/Globulin [Mass ratio] 1.2 {ratio} Normal [facility] Comment on above: Performed By: #### P REG, ACETON #### [facility] [address] [place] [address] Dr. Jovanni Maya ALP [Catalytic activity/Vol] 49 U/L Normal 46-116 [facility] Comment on above: Performed By: #### P REG, ACETON #### [facility] [address] [place] [address] [address] Jovanni Maya ALT [Catalytic activity/Vol] 4 U/L Critically low 14-59 [facility] Comment on above: Performed By: #### P REG, ACETON #### [facility] [address] [place] [address] Dr. Jovanni Maya Anion gap [Moles/Vol] 9.0 mmol/L Normal [facility] Comment on above: Performed By: #### P REG, ACETON #### [facility] [address] [place] [address] Dr. Jovanni Maya AST [Catalytic activity/Vol] 10 U/L Critically low 15-37 [facility] Comment on above: Performed By: #### P REG, ACETON #### [facility] [address] [place] [address] Dr. Jovanni Maya Bilirubin [Mass/Vol] 0.4 mg/dL Normal 0.2-1.0 [facility] Comment on above: Performed By: #### P REG, ACETON #### [facility] [address] [place] [address] [address] Jovanni Maya Calcium [Mass/Vol] 8.2 mg/dL Critically low 8.5-10.1 [facility] Comment on above: Performed By: #### P REG, ACETON #### [facility] [address] [place] [address] Dr. Jovanni Maya Chloride [Moles/Vol] 107 mmol/L Normal 98-107 [facility] Comment on above: Performed By: #### P REG, ACETON #### [facility] [address] [place] [address] Dr. Jovanni Maya CO2 [Moles/Vol] 25.8 mmol/L Normal 21.0-32.0 [facility] Comment on above: Performed By: #### P REG, ACETON #### [facility] [address] [place] [address] Dr. Jovanni Maya Creatinine [Mass/Vol] 0.73 mg/dL Normal 0.55-1.02 [facility] Comment on above: Performed By: #### P REG, ACETON #### [facility] [address] [place] [address] [address] Jovanni Maya EGFR-AF PALAUAN >60 Normal >=60 [facility] Comment on above: Performed By: #### P REG, ACETON #### [facility] [address] [place] [address] [address] Jovanni Maya EGFR-NON AF PALAUAN >60 Normal >=60 [facility] Comment on above: Performed By: #### P REG, ACETON #### [facility] [address] [place] [address] [address] Jovanni Maya Globulin (S) [Mass/Vol] 3.0 g/dL Normal [facility] Comment on above: Performed By: #### P REG, ACETON #### [facility] [address] [place] [address] [address] Jovanni Maya Glucose [Mass/Vol] 121 mg/dL Critically high 74-106 [facility] Comment on above: Performed By: #### P REG, ACETON #### [facility] [address] [place] [address] [address] Jovanni Maya Potassium [Moles/Vol] 3.8 mmol/L Normal 3.5-5.1 [facility] Comment on above: Performed By: #### P REG, ACETON #### [facility] [address] [place] [address] [address] Jovanni Maya Protein [Mass/Vol] 6.6 g/dL Normal 6.4-8.2 [facility] Comment on above: Performed By: #### P REG, ACETON #### [facility] [address] [place] [address] [address] Jovanni Maya Sodium [Moles/Vol] 138 mmol/L Normal 136-145 [facility] Comment on above: Performed By: #### P REG, ACETON #### [facility] [address] [place] [address] [address] Jovanni Maya Urea nitrogen [Mass/Vol] 9.0 mg/dL Normal 7.0-18.0 [facility] Comment on above: Performed By: #### P REG, ACETON #### [facility] [address] [place] [address] [address] Jovanni Maay Urea nitrogen/Creatinine [Mass ratio] 12.3 mg/mg Normal [facility] Comment on above: Performed By: #### P REG, ACETON #### [facility] [address] [place], [place] [address] Dr. Jovanni Maya Albumin [Mass/volume] in Ser um or PlasmaOrdered By: Luz Fiore on 04-22-2022 Albumin [Mass/Vol] 4.1 g/dL 3.2-5.5 [facility] Amphetamine Screen Ql (U)Ord ered By: Luz Fiore on 04-22-2022 Amphetamines Ql (U) Negative Negative [facility] Automated erythrocytes count in urine sediment (number/area)Ordered By: Luz Fiore on 04-22-2022 RBC Auto (Urine sed) [#/Area] 5-9 [HPF] 0-4 [facility] Automated leukocytes count i n urine sediment (number/area)Ordered By: Luz Fiore on 04-22-2022 WBC Auto (Urine sed) [#/Area] 1-2 [HPF] 0-4 [facility] Barbiturates [Presence] in U rineOrdered By: Luz Fiore on 04-22-2022 Barbiturates Ql (U) Negative Negative [facility] Basophils Auto (Bld) [#/Vol] Ordered By: Luz Fiore on 04-22-2022 Basophils (Bld) [#/Vol] 0.0 10*3/uL 0.0-0.2 [facility] Basophils/100 WBC Auto (Bld) Ordered By: Luz Fiore on 04-22-2022 Basophils/100 WBC (Bld) 0.4 % . [facility] Benzodiazepines [Presence] i n UrineOrdered By: Luz Fiore on 04-22-2022 Benzodiazepines Ql (U) Negative Negative [facility] Bilirubin Test strip Ql (U)O rdered By: Luz Fiore on 04-22-2022 Bilirubin Ql (U) Negative Negative [facility] Cannabinoids [Presence] in U rine by Screen methodOrdered By: Luz Fiore on 04-22-2022 Cannabinoids Screen Ql (U) Positive Negative [facility] Comment on above: These are unconfirme d results and should not be used for legal purposes. Drug Cut-Off Concentration: AMPH 1000 ng/mL DOMINIQUE 200 ng/mL BRICE 200 ng/mL COCM 300 ng/mL OP 300 ng/mL PCP 25 ng/mL THC 20 ng/mL Color Auto (U)Ordered By: Giovanni Fiore on 04-22-2022 Color (U) Yellow Yellow [facility] Creatinine and Glomerular fi ltration rate.predicted panel (S/P/Bld)Ordered By: Luz Fiore on 04-22-2022 Creatinine [Mass/Vol] 0.72 mg/dL 0.44-1.03 [facility] Eosinophils Auto (Bld) [#/Vo l]Ordered By: Luz Fiore on 04-22-2022 Eosinophils (Bld) [#/Vol] 0.0 10*3/uL 0.0-0.45 [facility] Eosinophils/100 WBC Auto (Bl d)Ordered By: Luz Fiore on 04-22-2022 Eosinophils/100 WBC (Bld) 0.6 % . [facility] Erythrocyte distribution wid th Auto (RBC) [Ratio]Ordered By: Luz Fiore on 04-22-2022 Erythrocyte distribution width (RBC) [Ratio] 14.6 % 11.9-15.3 [facility] Estimated glomerular filtrat ion rate (GFR) non- AmericanOrdered By: Luz Fiore on 04-22-2022 GFR/1.73 sq M.predicted among non-blacks MDRD (S/P/Bld) [Vol rate/Area] > 60 mL/Min [facility] Globulin Calc (S) [Mass/Vol] Ordered By: Luz Fiore on 04-22-2022 Globulin (S) [Mass/Vol] 3.2 g/dL [facility] Hematocrit Auto (Bld) [Volum e fraction]Ordered By: Luz Fiore on 04-22-2022 Hematocrit (Bld) [Volume fraction] 40.7 % 34.0-46.4 [facility] Hemoglobin [Mass/volume] in BloodOrdered By: Luz Fiore on 04-22-2022 Hemoglobin (Bld) [Mass/Vol] 13.4 g/dL 11.8-15.4 [facility] Ketones Auto test strip (U) [Mass/Vol]Ordered By: Luz Fiore on 04-22-2022 Ketones (U) [Mass/Vol] Negative Negative [facility] - Drug toxicology Ordered By: Luz Fiore on 04-22-2022 Opiates Ql (U) Negative Negative [facility] - Hematology and Cell countsOrdered By: Luz Fiore on 04-22-2022 Nucleated RBC/100 WBC (Bld) [Ratio] 0.1 % 0-0.5 [facility] - UrinalysisOrder ed By: Luz Fiore on 04-22-2022 Hyaline casts LM Ql (Urine sed) 0-8 [LPF] 0-8 [facility] Leukocytes [#/volume] in Blo od by Automated countOrdered By: Luz Fiore on 04-22-2022 WBC (Bld) [#/Vol] 7.2 10*3/uL 4.5-11.0 [facility] Lymphocytes Auto (Bld) [#/Vo l]Ordered By: Luz Fiore on 04-22-2022 Lymphocytes (Bld) [#/Vol] 2.2 10*3/uL 1.00-4.8 [facility] Lymphocytes/100 WBC Auto (Bl d)Ordered By: Luz Fiore on 04-22-2022 Lymphocytes/100 WBC (Bld) 30.1 % . [facility] MCH Auto (RBC) [Entitic mass ]Ordered By: Luz Fiore on 04-22-2022 MCH (RBC) [Entitic mass] 28.8 pg 24.7-34.3 [facility] MCHC Auto (RBC) [Mass/Vol]Or dered By: Luz Fiore on 04-22-2022 MCHC (RBC) [Mass/Vol] 32.9 g/dL 32.0-35.0 [facility] MCV Auto (RBC) [Entitic vol] Ordered By: Luz Fiore on 04-22-2022 MCV (RBC) [Entitic vol] 87.4 fL 80-100 [facility] Monocytes Auto (Bld) [#/Vol] Ordered By: Luz Firoe on 04-22-2022 Monocytes (Bld) [#/Vol] 0.5 10*3/uL 0.0-0.8 [facility] Monocytes/100 WBC Auto (Bld) Ordered By: Luz Fiore on 04-22-2022 Monocytes/100 WBC (Bld) 7.1 % . [facility] Neutrophils Auto (Bld) [#/Vo l]Ordered By: Luz Fiore on 04-22-2022 Neutrophils (Bld) [#/Vol] 4.4 10*3/uL 1.8-7.7 [facility] Neutrophils/100 WBC Auto (Bl d)Ordered By: Luz Fiore on 04-22-2022 Neutrophils/100 WBC (Bld) 61.8 % . [facility] Nitrite Test strip Ql (U)Ord ered By: Luz Fiore on 04-22-2022 Nitrite Ql (U) Negative Negative [facility] No Panel InformationOrdered By: Luz Fiore on 04-22-2022 Estimated GFR () > 60 mL/Min [facility] Comment on above: GFR estimated refere nce range: According to KDOQI guidelines, <60 ml/min/1.73m2 is sufficient to diagnose a patient with chronic kidney disease. Pharmacy Creatinine Clearance (Chem 94.05 [facility] Phencyclidine Screen Ql (U)O rdered By: Luz Fiore on 04-22-2022 Phencyclidine Ql (U) Negative Negative [facility] Platelet mean volume Auto (B ld) [Entitic vol]Ordered By: Luz Fiore on 04-22-2022 Platelet mean volume (Bld) [Entitic vol] 8.2 fL 6.3-10.7 [facility] Platelets Auto (Bld) [#/Vol] Ordered By: Luz Fiore on 04-22-2022 Platelets (Bld) [#/Vol] 268 10*3/uL 150-450 [facility] Protein Auto test strip (U) [Mass/Vol]Ordered By: Luz Fiore on 04-22-2022 Protein (U) [Mass/Vol] Negative Negative [facility] Protein [Mass/volume] in Ser um or PlasmaOrdered By: Luz Fiore on 04-22-2022 Protein [Mass/Vol] 7.3 g/dL 6.1-7.9 [facility] RBC Auto (Bld) [#/Vol]Ordere d By: Luz Fiore on 04-22-2022 RBC (Bld) [#/Vol] 4.66 10*6/uL 3.60-5.00 [facility] Serum or plasma alanine white otransferase measurement without P-5'-P (enzymatic activiOrdered By: Luz Fiore on 04-22-2022 ALT No additional P-5'-P [Catalytic activity/Vol] 10 U/L 10 [facility] Serum or plasma albumin/glob ulin mass ratioOrdered By: Luz Fiore on 04-22-2022 Albumin/Globulin [Mass ratio] 1.3 {ratio} [facility] Serum or plasma alkaline ignacio sphatase measurement (enzymatic activity/volume)Ordered By: Luz Fiore on 04-22-2022 ALP [Catalytic activity/Vol] 49 U/L 32-92 [facility] Serum or plasma anion gap de terminationOrdered By: Luz Fiore on 04-22-2022 Anion gap [Moles/Vol] 11.7 mmol/L 6.0-15.0 [facility] Serum or plasma aspartate am inotransferase measurement (enzymatic activity/volume)Ordered By: Luz Fiore on 04-22-2022 AST [Catalytic activity/Vol] 17 U/L 10-42 [facility] Serum or plasma calcium randi urement (mass/volume)Ordered By: Luz Fiore on 04-22-2022 Calcium [Mass/Vol] 9.4 mg/dL 8.2-10.2 [facility] Serum or plasma chloride melonie surement (moles/volume)Ordered By: Luz Fiore on 04-22-2022 Chloride [Moles/Vol] 102 mmol/L 95-114 [facility] Serum or plasma glucose randi urement (mass/volume)Ordered By: Luz Fiore on 04-22-2022 Glucose [Mass/Vol] 101 mg/dL 70-100 [facility] Comment on above: ADA recommended refe rence rangeRandom Glucose Reference Range is dependent on time and content of last meal. Glucose of more than 200 mg/dL in a nonstressed, ambulatory subject supports the diagnosis of Diabetes Mellitus. Serum or plasma potassium me asurement (moles/volume)Ordered By: Luz Fiore on 04-22-2022 Potassium [Moles/Vol] 3.9 mmol/L 3.5-5.1 [facility] Serum or plasma sodium measu rement (moles/volume)Ordered By: Luz Fiore on 04-22-2022 Sodium [Moles/Vol] 139 mmol/L 136-146 [facility] Serum or plasma total biliru bin measurement (mass/volume)Ordered By: Luz Fiore on 04-22-2022 Bilirubin [Mass/Vol] 0.7 mg/dL 0.3-1.2 [facility] Serum or plasma total carbon dioxide measurement (moles/volume)Ordered By: Luz Fiore on 04-22-2022 CO2 [Moles/Vol] 29.2 mmol/L 22.0-30.0 [facility] Serum or plasma urea nitroge n measurement (mass/volume)Ordered By: Luz Fiore on 04-22-2022 Urea nitrogen [Mass/Vol] 6 mg/dL - [facility] Specific gravity Auto test s trip (U) [Rel density]Ordered By: Luz Fiore on 04-22-2022 Specific gravity (U) [Rel density] 1.017 1.001-1.030 [facility] Squamous epithelial cells de tection in urine sediment by light microscopyOrdered By: Luz Fiore on 04-22-2022 Epithelial cells.squamous LM Ql (Urine sed) 0-1 [HPF] 0-2 [facility] Urine bacteria detection by automated methodOrdered By: Luz Fiore on 04-22-2022 Bacteria Auto Ql (U) None seen None Seen [facility] Urine clarity by refractomet ry automatedOrdered By: Luz Fiore on 04-22-2022 Clarity Refractometry automated (U) Turbid Clear [facility] Urine cocaine detectionOrder ed By: Luz Fiore on 04-22-2022 Cocaine Ql (U) Negative Negative [facility] Urine glucose measurement by automated test strip (mass/volume)Ordered By: Luz Fiore on 04-22-2022 Glucose Auto test strip (U) [Mass/Vol] Normal mg/dL Normal [facility] Urine hemoglobin detection b y automated test stripOrdered By: Luz Fiore on 04-22-2022 Hemoglobin Auto test strip Ql (U) 2+ Negative [facility] Urine leukocyte esterase det ection by automated test stripOrdered By: Luz Fiore on 04-22-2022 Leukocyte esterase Auto test strip Ql (U) Negative Negative [facility] Urobilinogen Auto test strip (U) [Mass/Vol]Ordered By: Luz Fiore on 04-22-2022 Urobilinogen (U) [Mass/Vol] Normal mg/dL Normal [facility] Yeast detection in urine sed iment by light microscopyOrdered By: Luz Fiore on 04-22-2022 Yeast LM Ql (Urine sed) None seen [HPF] None Seen [facility] pH Auto test strip (U)Ordere d By: uLz Fiore on 04-22-2022 pH (U) 7.0 [pH] 5.0-9.0 [facility] Urine culture routineOrdered By: Luz Fiore on 04-07-2022 Bacteria identified Cx Nom (U) No Growth 2 Days [facility] Amphetamine Screen Ql (U)Ord ered By: Luz Fiore on 04-05-2022 Amphetamines Ql (U) Negative Negative [facility] Automated erythrocytes count in urine sediment (number/area)Ordered By: Luz Fiore on 04-05-2022 RBC Auto (Urine sed) [#/Area] 5-9 [HPF] 0-4 [facility] Automated leukocytes count i n urine sediment (number/area)Ordered By: Luz Fiore on 04-05-2022 WBC Auto (Urine sed) [#/Area] 5-9 [HPF] 0-4 [facility] Barbiturates [Presence] in U rineOrdered By: Luz Fiore on 04-05-2022 Barbiturates Ql (U) Negative Negative [facility] Basophils Auto (Bld) [#/Vol] Ordered By: Luz Fiore on 04-05-2022 Basophils (Bld) [#/Vol] 0.0 10*3/uL 0.0-0.2 [facility] Basophils/100 WBC Auto (Bld) Ordered By: Luz Fiore on 04-05-2022 Basophils/100 WBC (Bld) 0.5 % . [facility] Benzodiazepines [Presence] i n UrineOrdered By: Luz Fiore on 04-05-2022 Benzodiazepines Ql (U) Negative Negative [facility] Bilirubin Test strip Ql (U)O rdered By: Luz Fiore on 04-05-2022 Bilirubin Ql (U) Negative Negative [facility] Blood hemoglobin measurement (mass/volume)Ordered By: Luz Fiore on 04-05-2022 Hemoglobin (Bld) [Mass/Vol] 13.4 g/dL 11.8-15.4 [facility] Blood leukocytes automated c ount (number/volume)Ordered By: Luz Fiore on 04-05-2022 WBC (Bld) [#/Vol] 6.5 10*3/uL 4.5-11.0 [facility] Cannabinoids [Presence] in U rine by Screen methodOrdered By: Luz Fiore on 04-05-2022 Cannabinoids Screen Ql (U) Positive Negative [facility] Comment on above: These are unconfirme d results and should not be used for legal purposes. Drug Cut-Off Concentration: AMPH 1000 ng/mL DOMINIQUE 200 ng/mL BRICE 200 ng/mL COCM 300 ng/mL OP 300 ng/mL PCP 25 ng/mL THC 20 ng/mL Color Auto (U)Ordered By: Giovanni Fiore on 04-05-2022 Color (U) Yellow Yellow [facility] Creatinine and Glomerular fi ltration rate.predicted panel (S/P/Bld)Ordered By: Luz Fiore on 04-05-2022 Creatinine [Mass/Vol] 0.73 mg/dL 0.44-1.03 [facility] Eosinophils Auto (Bld) [#/Vo l]Ordered By: Luz Fiore on 04-05-2022 Eosinophils (Bld) [#/Vol] 0.0 10*3/uL 0.0-0.45 [facility] Eosinophils/100 WBC Auto (Bl d)Ordered By: Luz Fiore on 04-05-2022 Eosinophils/100 WBC (Bld) 0.5 % . [facility] Erythrocyte distribution wid th Auto (RBC) [Ratio]Ordered By: Luz Fiore on 04-05-2022 Erythrocyte distribution width (RBC) [Ratio] 14.2 % 11.9-15.3 [facility] Estimated glomerular filtrat ion rate (GFR) non- AmericanOrdered By: Luz Fiore on 04-05-2022 GFR/1.73 sq M.predicted among non-blacks MDRD (S/P/Bld) [Vol rate/Area] > 60 mL/Min [facility] HCG ( test) IA.rapi d Ql (U)Ordered By: Luz Fiore on 04-05-2022 HCG ( test) Ql (U) Negative [facility] Hematocrit Auto (Bld) [Volum e fraction]Ordered By: Luz Fiore on 04-05-2022 Hematocrit (Bld) [Volume fraction] 40.4 % 34.0-46.4 [facility] Ketones Auto test strip (U) [Mass/Vol]Ordered By: Luz Fiore on 04-05-2022 Ketones (U) [Mass/Vol] Negative Negative [facility] - Drug toxicology Ordered By: Luz Fiore on 04-05-2022 Opiates Ql (U) Negative Negative [facility] - Hematology and Cell countsOrdered By: Luz Fiore on 04-05-2022 Nucleated RBC/100 WBC (Bld) [Ratio] 0.1 % 0-0.5 [facility] - UrinalysisOrder ed By: Luz Fiore on 04-05-2022 Hyaline casts LM Ql (Urine sed) 0-8 [LPF] 0-8 [facility] Lymphocytes Auto (Bld) [#/Vo l]Ordered By: Luz Fiore on 04-05-2022 Lymphocytes (Bld) [#/Vol] 2.0 10*3/uL 1.00-4.8 [facility] Lymphocytes/100 WBC Auto (Bl d)Ordered By: Luz Fiore on 04-05-2022 Lymphocytes/100 WBC (Bld) 30.0 % . [facility] MCH Auto (RBC) [Entitic mass ]Ordered By: Luz Fiore on 04-05-2022 MCH (RBC) [Entitic mass] 28.8 pg 24.7-34.3 [facility] MCHC Auto (RBC) [Mass/Vol]Or dered By: Luz Fiore on 04-05-2022 MCHC (RBC) [Mass/Vol] 33.2 g/dL 32.0-35.0 [facility] MCV Auto (RBC) [Entitic vol] Ordered By: Luz Fiore on 04-05-2022 MCV (RBC) [Entitic vol] 86.6 fL 80-100 [facility] Monocytes Auto (Bld) [#/Vol] Ordered By: Luz Fiore on 04-05-2022 Monocytes (Bld) [#/Vol] 0.5 10*3/uL 0.0-0.8 [facility] Monocytes/100 WBC Auto (Bld) Ordered By: Luz Fiore on 04-05-2022 Monocytes/100 WBC (Bld) 7.0 % . [facility] Neutrophils Auto (Bld) [#/Vo l]Ordered By: Luz Fiore on 04-05-2022 Neutrophils (Bld) [#/Vol] 4.0 10*3/uL 1.8-7.7 [facility] Neutrophils/100 WBC Auto (Bl d)Ordered By: Luz Fiore on 04-05-2022 Neutrophils/100 WBC (Bld) 62.0 % . [facility] Nitrite Test strip Ql (U)Ord ered By: Luz Fiore on 04-05-2022 Nitrite Ql (U) Negative Negative [facility] No Panel InformationOrdered By: Luz Fiore on 04-05-2022 Estimated GFR () > 60 mL/Min [facility] Comment on above: GFR estimated refere nce range: According to KDOQI guidelines, <60 ml/min/1.73m2 is sufficient to diagnose a patient with chronic kidney disease. Pharmacy Creatinine Clearance (Chem 92.76 [facility] Phencyclidine Screen Ql (U)O rdered By: Luz Fiore on 04-05-2022 Phencyclidine Ql (U) Negative Negative [facility] Platelet mean volume Auto (B ld) [Entitic vol]Ordered By: Luz Fiore on 04-05-2022 Platelet mean volume (Bld) [Entitic vol] 7.8 fL 6.3-10.7 [facility] Platelets Auto (Bld) [#/Vol] Ordered By: Luz Fiore on 04-05-2022 Platelets (Bld) [#/Vol] 278 10*3/uL 150-450 [facility] Protein Auto test strip (U) [Mass/Vol]Ordered By: Luz Fiore on 04-05-2022 Protein (U) [Mass/Vol] Negative Negative [facility] RBC Auto (Bld) [#/Vol]Ordere d By: Luz Fiore on 04-05-2022 RBC (Bld) [#/Vol] 4.66 10*6/uL 3.60-5.00 [facility] Serum or plasma anion gap de terminationOrdered By: Luz Fiore on 04-05-2022 Anion gap [Moles/Vol] 14.4 mmol/L 6.0-15.0 [facility] Serum or plasma calcium randi urement (mass/volume)Ordered By: Luz Fiore on 04-05-2022 Calcium [Mass/Vol] 9.5 mg/dL 8.2-10.2 [facility] Serum or plasma chloride melonie surement (moles/volume)Ordered By: Luz Fiore on 04-05-2022 Chloride [Moles/Vol] 100 mmol/L 95-114 [facility] Serum or plasma glucose randi urement (mass/volume)Ordered By: Luz Fiore on 04-05-2022 Glucose [Mass/Vol] 97 mg/dL 70-100 [facility] Comment on above: ADA recommended refe rence rangeRandom Glucose Reference Range is dependent on time and content of last meal. Glucose of more than 200 mg/dL in a nonstressed, ambulatory subject supports the diagnosis of Diabetes Mellitus. Serum or plasma potassium me asurement (moles/volume)Ordered By: Luz Fiore on 04-05-2022 Potassium [Moles/Vol] 4.1 mmol/L 3.5-5.1 [facility] Serum or plasma sodium measu rement (moles/volume)Ordered By: Luz Fiore on 04-05-2022 Sodium [Moles/Vol] 139 mmol/L 136-146 [facility] Serum or plasma total carbon dioxide measurement (moles/volume)Ordered By: Luz Fiore on 04-05-2022 CO2 [Moles/Vol] 28.7 mmol/L 22.0-30.0 [facility] Serum or plasma urea nitroge n measurement (mass/volume)Ordered By: Luz Fiore on 04-05-2022 Urea nitrogen [Mass/Vol] 7 mg/dL 9-23 [facility] Specific gravity Auto test s trip (U) [Rel density]Ordered By: Luz Fiore on 04-05-2022 Specific gravity (U) [Rel density] 1.011 1.001-1.030 [facility] Squamous epithelial cells de tection in urine sediment by light microscopyOrdered By: Luz Fiore on 04-05-2022 Epithelial cells.squamous LM Ql (Urine sed) 1-2 [HPF] 0-2 [facility] Urine bacteria detection by automated methodOrdered By: Luz Fiore on 04-05-2022 Bacteria Auto Ql (U) None seen None Seen [facility] Urine clarity by refractomet ry automatedOrdered By: Luz Fiore on 04-05-2022 Clarity Refractometry automated (U) Cloudy Clear [facility] Urine cocaine detectionOrder ed By: Luz Fiore on 04-05-2022 Cocaine Ql (U) Negative Negative [facility] Urine glucose measurement by automated test strip (mass/volume)Ordered By: Luz Fiore on 04-05-2022 Glucose Auto test strip (U) [Mass/Vol] Normal mg/dL Normal [facility] Urine hemoglobin detection b y automated test stripOrdered By: Luz Fiore on 04-05-2022 Hemoglobin Auto test strip Ql (U) Trace Negative [facility] Urine leukocyte esterase det ection by automated test stripOrdered By: Luz Fiore on 04-05-2022 Leukocyte esterase Auto test strip Ql (U) 1+ Negative [facility] Urobilinogen Auto test strip (U) [Mass/Vol]Ordered By: Luz Fiore on 04-05-2022 Urobilinogen (U) [Mass/Vol] Normal mg/dL Normal [facility] pH Auto test strip (U)Ordere d By: Luz Fiore on 04-05-2022 pH (U) 7.0 [pH] 5.0-9.0 [facility] Urine culture routineOrdered By: Mario Alberto Jose on 04-01-2022 Bacteria identified Cx Nom (U) 2 Days [facility] Automated erythrocytes count in urine sediment (number/area)Ordered By: Mario Alberto Jose on 03-30-2022 RBC Auto (Urine sed) [#/Area] 5-9 [HPF] 0-4 [facility] Automated leukocytes count i n urine sediment (number/area)Ordered By: Mario Alberto Jose on 03-30-2022 WBC Auto (Urine sed) [#/Area] 5-9 [HPF] 0-4 [facility] Basophils Auto (Bld) [#/Vol] Ordered By: Mario Alberto Jose on 03-30-2022 Basophils (Bld) [#/Vol] 0.0 10*3/uL 0.0-0.2 [facility] Basophils/100 WBC Auto (Bld) Ordered By: Mario Alberto Jose on 03-30-2022 Basophils/100 WBC (Bld) 0.4 % . [facility] Bilirubin Test strip Ql (U)O rdered By: Mario Alberto Jose on 03-30-2022 Bilirubin Ql (U) Negative Negative [facility] Blood hemoglobin measurement (mass/volume)Ordered By: Mario Alberto Jose on 03-30-2022 Hemoglobin (Bld) [Mass/Vol] 14.6 g/dL 11.8-15.4 [facility] Blood leukocytes automated c ount (number/volume)Ordered By: Mario Alberto Jose on 03-30-2022 WBC (Bld) [#/Vol] 7.6 10*3/uL 4.5-11.0 [facility] Color Auto (U)Ordered By: Sushma Jose on 03-30-2022 Color (U) Yellow Yellow [facility] Creatinine and Glomerular fi ltration rate.predicted panel (S/P/Bld)Ordered By: Mario Alberto Jose on 03-30-2022 Creatinine [Mass/Vol] 0.80 mg/dL 0.44-1.03 [facility] Eosinophils Auto (Bld) [#/Vo l]Ordered By: Mario Alberto Jose on 03-30-2022 Eosinophils (Bld) [#/Vol] 0.1 10*3/uL 0.0-0.45 [facility] Eosinophils/100 WBC Auto (Bl d)Ordered By: Mario Alberto Jose on 03-30-2022 Eosinophils/100 WBC (Bld) 0.8 % . [facility] Erythrocyte distribution wid th Auto (RBC) [Ratio]Ordered By: Mario Alberto Jose on 03-30-2022 Erythrocyte distribution width (RBC) [Ratio] 14.4 % 11.9-15.3 [facility] Estimated glomerular filtrat ion rate (GFR) non- AmericanOrdered By: Mario Alberto Jose on 03-30-2022 GFR/1.73 sq M.predicted among non-blacks MDRD (S/P/Bld) [Vol rate/Area] > 60 mL/Min [facility] Hematocrit Auto (Bld) [Volum e fraction]Ordered By: Mario Alberto Jose on 03-30-2022 Hematocrit (Bld) [Volume fraction] 43.8 % 34.0-46.4 [facility] Ketones Auto test strip (U) [Mass/Vol]Ordered By: Mario Alberto Jose on 03-30-2022 Ketones (U) [Mass/Vol] Negative Negative [facility] Laboratory - Hematology and Cell countsOrdered By: Mario Alberto Jose on 03-30-2022 Nucleated RBC/100 WBC (Bld) [Ratio] 0.1 % 0-0.5 [facility] - UrinalysisOrder ed By: Mario Alberto Jose on 03-30-2022 Hyaline casts LM Ql (Urine sed) 0-8 [LPF] 0-8 [facility] Lymphocytes Auto (Bld) [#/Vo l]Ordered By: Mario Alberto Jose on 03-30-2022 Lymphocytes (Bld) [#/Vol] 2.4 10*3/uL 1.00-4.8 [facility] Lymphocytes/100 WBC Auto (Bl d)Ordered By: Mario Alberto Jose on 03-30-2022 Lymphocytes/100 WBC (Bld) 31.6 % . [facility] MCH Auto (RBC) [Entitic mass ]Ordered By: Mario Alberto Jose on 03-30-2022 MCH (RBC) [Entitic mass] 28.9 pg 24.7-34.3 [facility] MCHC Auto (RBC) [Mass/Vol]Or dered By: Mario Alberto Jose on 03-30-2022 MCHC (RBC) [Mass/Vol] 33.4 g/dL 32.0-35.0 [facility] MCV Auto (RBC) [Entitic vol] Ordered By: Mario Alberto Jose on 03-30-2022 MCV (RBC) [Entitic vol] 86.6 fL 80-100 [facility] Monocytes Auto (Bld) [#/Vol] Ordered By: Mario Alberto Jose on 03-30-2022 Monocytes (Bld) [#/Vol] 0.5 10*3/uL 0.0-0.8 [facility] Monocytes/100 WBC Auto (Bld) Ordered By: Mario Alberto Jose on 03-30-2022 Monocytes/100 WBC (Bld) 7.0 % . [facility] Neutrophils Auto (Bld) [#/Vo l]Ordered By: Mario Alberto Jose on 03-30-2022 Neutrophils (Bld) [#/Vol] 4.6 10*3/uL 1.8-7.7 [facility] Neutrophils/100 WBC Auto (Bl d)Ordered By: Mario Alberto Jose on 03-30-2022 Neutrophils/100 WBC (Bld) 60.2 % . [facility] Nitrite Test strip Ql (U)Ord ered By: Mario Alberto Jose on 03-30-2022 Nitrite Ql (U) Negative Negative [facility] No Panel InformationOrdered By: Mario Alberto Jose on 03-30-2022 Estimated GFR () > 60 mL/Min [facility] Comment on above: GFR estimated refere nce range: According to KDOQI guidelines, <60 ml/min/1.73m2 is sufficient to diagnose a patient with chronic kidney disease. Pharmacy Creatinine Clearance (Chem 84.65 [facility] Platelet mean volume Auto (B ld) [Entitic vol]Ordered By: Mario Alberto Jose on 03-30-2022 Platelet mean volume (Bld) [Entitic vol] 8.4 fL 6.3-10.7 [facility] Platelets Auto (Bld) [#/Vol] Ordered By: Mario Alberto Jose on 03-30-2022 Platelets (Bld) [#/Vol] 286 10*3/uL 150-450 [facility] Protein Auto test strip (U) [Mass/Vol]Ordered By: Mario Alberto Jose on 03-30-2022 Protein (U) [Mass/Vol] Negative Negative [facility] RBC Auto (Bld) [#/Vol]Ordere d By: Mario Alberto Jose on 03-30-2022 RBC (Bld) [#/Vol] 5.05 10*6/uL 3.60-5.00 [facility] Serum or plasma anion gap de terminationOrdered By: Mario Alberto Jose on 03-30-2022 Anion gap [Moles/Vol] 15.0 mmol/L 6.0-[facility].0 [facility] Serum or plasma calcium randi urement (mass/volume)Ordered By: Mario Alberto Jose on 03-30-2022 Calcium [Mass/Vol] 9.9 mg/dL 8.2-10.2 [facility] Serum or plasma chloride melonie surement (moles/volume)Ordered By: Mario Alberto Jose on 03-30-2022 Chloride [Moles/Vol] 100 mmol/L 95-114 [facility] Serum or plasma glucose randi urement (mass/volume)Ordered By: Mario Alberto Jose on 03-30-2022 Glucose [Mass/Vol] 104 mg/dL 70-100 [facility] Comment on above: ADA recommended refe rence rangeRandom Glucose Reference Range is dependent on time and content of last meal. Glucose of more than 200 mg/dL in a nonstressed, ambulatory subject supports the diagnosis of Diabetes Mellitus. Serum or plasma potassium me asurement (moles/volume)Ordered By: Mario Alberto Jose on 03-30-2022 Potassium [Moles/Vol] 4.1 mmol/L 3.5-5.1 [facility] Serum or plasma sodium measu rement (moles/volume)Ordered By: Mario Alberto Jose on 03-30-2022 Sodium [Moles/Vol] 138 mmol/L 136-146 [facility] Serum or plasma total carbon dioxide measurement (moles/volume)Ordered By: Mario Alberto Jose on 03-30-2022 CO2 [Moles/Vol] 27.1 mmol/L 22.0-30.0 [facility] Serum or plasma urea nitroge n measurement (mass/volume)Ordered By: Mario Alberto Jose on 03-30-2022 Urea nitrogen [Mass/Vol] 10 mg/dL 9-23 [facility] Specific gravity Auto test s trip (U) [Rel density]Ordered By: Mario Alberto Jose on 03-30-2022 Specific gravity (U) [Rel density] 1.007 1.001-1.030 [facility] Squamous epithelial cells de tection in urine sediment by light microscopyOrdered By: Mario Alberto Jose on 03-30-2022 Epithelial cells.squamous LM Ql (Urine sed) 3-4 [HPF] 0-2 [facility] Urine bacteria detection by automated methodOrdered By: Mario Alberto Jose on 03-30-2022 Bacteria Auto Ql (U) 1+ None Seen [facility] Urine clarity by refractomet ry automatedOrdered By: Mario Alberto Jose on 03-30-2022 Clarity Refractometry automated (U) Clear Clear [facility] Urine glucose measurement by automated test strip (mass/volume)Ordered By: Mario Alberto Jose on 03-30-2022 Glucose Auto test strip (U) [Mass/Vol] Normal mg/dL Normal [facility] Urine hemoglobin detection b y automated test stripOrdered By: Mario Alberto Jose on 03-30-2022 Hemoglobin Auto test strip Ql (U) Negative Negative [facility] Urine leukocyte esterase det ection by automated test stripOrdered By: Mario Alberto Jose on 03-30-2022 Leukocyte esterase Auto test strip Ql (U) 1+ Negative [facility] Urobilinogen Auto test strip (U) [Mass/Vol]Ordered By: Mario Alberto Jose on 03-30-2022 Urobilinogen (U) [Mass/Vol] Normal mg/dL Normal [facility] pH Auto test strip (U)Ordere d By: Mario Alberto Jose on 03-30-2022 pH (U) 7.5 [pH] 5.0-9.0 [facility] Albumin [Mass/volume] in Ser um or PlasmaOrdered By: Los Mcnally on 03-19-2022 Albumin [Mass/Vol] 4.8 g/dL 3.2-5.5 [facility] Basophils Auto (Bld) [#/Vol] Ordered By: Los Mcnally on 03-19-2022 Basophils (Bld) [#/Vol] 0.0 10*3/uL 0.0-0.2 [facility] Basophils/100 WBC Auto (Bld) Ordered By: Los Mcnally on 03-19-2022 Basophils/100 WBC (Bld) 0.6 % . [facility] Blood hemoglobin measurement (mass/volume)Ordered By: Los Mcnally on 03-19-2022 Hemoglobin (Bld) [Mass/Vol] 14.3 g/dL 11.8-15.4 [facility] Blood leukocytes automated c ount (number/volume)Ordered By: Los Mcnally on 03-19-2022 WBC (Bld) [#/Vol] 7.5 10*3/uL 4.5-11.0 [facility] Creatinine and Glomerular fi ltration rate.predicted panel (S/P/Bld)Ordered By: Los Mcnally on 03-19-2022 Creatinine [Mass/Vol] 0.91 mg/dL 0.44-1.03 [facility] Eosinophils Auto (Bld) [#/Vo l]Ordered By: Los Mcnally on 03-19-2022 Eosinophils (Bld) [#/Vol] 0.1 10*3/uL 0.0-0.45 [facility] Eosinophils/100 WBC Auto (Bl d)Ordered By: Los Mcnally on 03-19-2022 Eosinophils/100 WBC (Bld) 1.4 % . [facility] Erythrocyte distribution wid th Auto (RBC) [Ratio]Ordered By: Los Mcnally on 03-19-2022 Erythrocyte distribution width (RBC) [Ratio] 14.9 % 11.9-15.3 [facility] Estimated glomerular filtrat ion rate (GFR) non- AmericanOrdered By: Los Mcnally on 03-19-2022 GFR/1.73 sq M.predicted among non-blacks MDRD (S/P/Bld) [Vol rate/Area] > 60 mL/Min [facility] Globulin Calc (S) [Mass/Vol] Ordered By: Los Mcnally on 03-19-2022 Globulin (S) [Mass/Vol] 3.6 g/dL [facility] Hematocrit Auto (Bld) [Volum e fraction]Ordered By: Los Mcnally on 03-19-2022 Hematocrit (Bld) [Volume fraction] 43.6 % 34.0-46.4 [facility] Laboratory - Hematology and Cell countsOrdered By: Los Mcnally on 03-19-2022 Nucleated RBC/100 WBC (Bld) [Ratio] 0.0 % 0-0.5 [facility] Lymphocytes Auto (Bld) [#/Vo l]Ordered By: Los Mcnally on 03-19-2022 Lymphocytes (Bld) [#/Vol] 2.6 10*3/uL 1.00-4.8 [facility] Lymphocytes/100 WBC Auto (Bl d)Ordered By: Los Mcnally on 03-19-2022 Lymphocytes/100 WBC (Bld) 34.0 % . [facility] MCH Auto (RBC) [Entitic mass ]Ordered By: Los Mcnally on 03-19-2022 MCH (RBC) [Entitic mass] 29.1 pg 24.7-34.3 [facility] MCHC Auto (RBC) [Mass/Vol]Or dered By: Los Mcnally on 03-19-2022 MCHC (RBC) [Mass/Vol] 32.8 g/dL 32.0-35.0 [facility] MCV Auto (RBC) [Entitic vol] Ordered By: Los Mcnally on 03-19-2022 MCV (RBC) [Entitic vol] 88.6 fL 80-100 [facility] Monocytes Auto (Bld) [#/Vol] Ordered By: Los Mcnally on 03-19-2022 Monocytes (Bld) [#/Vol] 0.5 10*3/uL 0.0-0.8 [facility] Monocytes/100 WBC Auto (Bld) Ordered By: Los Mcnally on 03-19-2022 Monocytes/100 WBC (Bld) 6.9 % . [facility] Neutrophils Auto (Bld) [#/Vo l]Ordered By: Los Mcnally on 03-19-2022 Neutrophils (Bld) [#/Vol] 4.3 10*3/uL 1.8-7.7 [facility] Neutrophils/100 WBC Auto (Bl d)Ordered By: Los Mcnally on 03-19-2022 Neutrophils/100 WBC (Bld) 57.1 % . [facility] No Panel InformationOrdered By: Los Mcnally on 03-19-2022 Estimated GFR () > 60 mL/Min [facility] Comment on above: GFR estimated refere nce range: According to KDOQI guidelines, <60 ml/min/1.73m2 is sufficient to diagnose a patient with chronic kidney disease. Pharmacy Creatinine Clearance (Chem 74.41 [facility] Platelet mean volume Auto (B ld) [Entitic vol]Ordered By: Los Mcnally on 03-19-2022 Platelet mean volume (Bld) [Entitic vol] 8.9 fL 6.3-10.7 [facility] Platelets Auto (Bld) [#/Vol] Ordered By: Los Mcnally on 03-19-2022 Platelets (Bld) [#/Vol] 266 10*3/uL 150-450 [facility] Prolactin [Mass/volume] in S alexis or PlasmaOrdered By: Los Mcnally on 03-19-2022 Prolactin [Mass/Vol] 18.55 ng/mL 3.34-26.72 [facility] Protein [Mass/volume] in Ser um or PlasmaOrdered By: Los Mcnally on 03-19-2022 Protein [Mass/Vol] 8.4 g/dL 6.1-7.9 [facility] RBC Auto (Bld) [#/Vol]Ordere d By: Los Mcnally on 03-19-2022 RBC (Bld) [#/Vol] 4.92 10*6/uL 3.60-5.00 [facility] Serum or plasma alanine white otransferase measurement without P-5'-P (enzymatic activiOrdered By: Los Mcnally on 03-19-2022 ALT No additional P-5'-P [Catalytic activity/Vol] 11 U/L 10-60 [facility] Serum or plasma albumin/glob ulin mass ratioOrdered By: Los Mcnally on 03-19-2022 Albumin/Globulin [Mass ratio] 1.3 {ratio} [facility] Serum or plasma alkaline ignacio sphatase measurement (enzymatic activity/volume)Ordered By: Los Mcnally on 03-19-2022 ALP [Catalytic activity/Vol] 51 U/L 32-92 [facility] Serum or plasma anion gap de terminationOrdered By: Los Mcnally on 03-19-2022 Anion gap [Moles/Vol] 17.7 mmol/L 6.0-15.0 [facility] Serum or plasma aspartate am inotransferase measurement (enzymatic activity/volume)Ordered By: Los Mcnally on 03-19-2022 AST [Catalytic activity/Vol] 22 U/L 10-42 [facility] Serum or plasma calcium randi urement (mass/volume)Ordered By: Los Mcnally on 03-19-2022 Calcium [Mass/Vol] 9.8 mg/dL 8.2-10.2 [facility] Serum or plasma chloride melonie surement (moles/volume)Ordered By: Los Mcnally on 03-19-2022 Chloride [Moles/Vol] 101 mmol/L 95-114 [facility] Serum or plasma glucose randi urement (mass/volume)Ordered By: Los Mcnally on 03-19-2022 Glucose [Mass/Vol] 83 mg/dL 70-100 [facility] Comment on above: ADA recommended refe rence [...] or plasma potassium me asurement (moles/volume)Ordered By: Los Mcnally on 03-19-2022 Potassium [Moles/Vol] 3.7 mmol/L 3.5-5.1 [facility] Serum or plasma sodium measu rement (moles/volume)Ordered By: Los Mcnally on 03-19-2022 Sodium [Moles/Vol] 138 mmol/L 136-146 [facility] Serum or plasma total biliru bin measurement (mass/volume)Ordered By: Los Mcnally on 03-19-2022 Bilirubin [Mass/Vol] 0.7 mg/dL 0.3-1.2 [facility] Serum or plasma total carbon dioxide measurement (moles/volume)Ordered By: Los Mcnally on 03-19-2022 CO2 [Moles/Vol] 23.0 mmol/L 22.0-30.0 [facility] Serum or plasma urea nitroge n measurement (mass/volume)Ordered By: Los Mcnally on 03-19-2022 Urea nitrogen [Mass/Vol] 8 mg/dL 03-19 [facility] Albumin [Mass/volume] in Ser um or PlasmaOrdered By: Tommy Bowen on 02-25-2022 Albumin [Mass/Vol] 4.1 g/dL 3.2-5.5 [facility] Basophils Auto (Bld) [#/Vol] Ordered By: Tommy Bowen on 02-25-2022 Basophils (Bld) [#/Vol] 0.0 10*3/uL 0.0-0.2 [facility] Basophils/100 WBC Auto (Bld) Ordered By: Tommy Bowen on 02-25-2022 Basophils/100 WBC (Bld) 0.5 % . [facility] Blood hemoglobin measurement (mass/volume)Ordered By: Tommy Bowen on 02-25-2022 Hemoglobin (Bld) [Mass/Vol] 13.4 g/dL 11.8-15.4 [facility] Blood leukocytes automated c ount (number/volume)Ordered By: Tommy Bowen on 02-25-2022 WBC (Bld) [#/Vol] 8.0 10*3/uL 4.5-11.0 [facility] Creatinine and Glomerular fi ltration rate.predicted panel (S/P/Bld)Ordered By: Tommy Bowen on 02-25-2022 Creatinine [Mass/Vol] 0.75 mg/dL 0.44-1.03 [facility] Eosinophils Auto (Bld) [#/Vo l]Ordered By: Tommy Bowen on 02-25-2022 Eosinophils (Bld) [#/Vol] 0.1 10*3/uL 0.0-0.45 [facility] Eosinophils/100 WBC Auto (Bl d)Ordered By: Tommy Bowen on 02-25-2022 Eosinophils/100 WBC (Bld) 0.6 % . [facility] Erythrocyte distribution wid th Auto (RBC) [Ratio]Ordered By: Tommy Bowen on 02-25-2022 Erythrocyte distribution width (RBC) [Ratio] 14.2 % 11.9-15.3 [facility] Estimated glomerular filtrat ion rate (GFR) non- AmericanOrdered By: Tommy Bowen on 02-25-2022 GFR/1.73 sq M.predicted among non-blacks MDRD (S/P/Bld) [Vol rate/Area] > 60 mL/Min [facility] Globulin Calc (S) [Mass/Vol] Ordered By: Tommy Bowen on 02-25-2022 Globulin (S) [Mass/Vol] 3.2 g/dL [facility] Hematocrit Auto (Bld) [Volum e fraction]Ordered By: Tommy Bowen on 02-25-2022 Hematocrit (Bld) [Volume fraction] 41.0 % 34.0-46.4 [facility] Laboratory - Hematology and Cell countsOrdered By: Tommy Bowen on 02-25-2022 Nucleated RBC/100 WBC (Bld) [Ratio] 0.0 % 0-0.5 [facility] Lymphocytes Auto (Bld) [#/Vo l]Ordered By: Tommy Bowen on 02-25-2022 Lymphocytes (Bld) [#/Vol] 2.0 10*3/uL 1.00-4.8 [facility] Lymphocytes/100 WBC Auto (Bl d)Ordered By: Tommy Bowen on 02-25-2022 Lymphocytes/100 WBC (Bld) 25.6 % . [facility] MCH Auto (RBC) [Entitic mass ]Ordered By: Tommy Bowen on 02-25-2022 MCH (RBC) [Entitic mass] 28.7 pg 24.7-34.3 [facility] MCHC Auto (RBC) [Mass/Vol]Or dered By: Tommy Bowen on 02-25-2022 MCHC (RBC) [Mass/Vol] 32.7 g/dL 32.0-35.0 [facility] MCV Auto (RBC) [Entitic vol] Ordered By: Tommy Bowen on 02-25-2022 MCV (RBC) [Entitic vol] 87.8 fL 80-100 [facility] Monocytes Auto (Bld) [#/Vol] Ordered By: Tommy Bowen on 02-25-2022 Monocytes (Bld) [#/Vol] 0.6 10*3/uL 0.0-0.8 [facility] Monocytes/100 WBC Auto (Bld) Ordered By: Tommy Bowen on 02-25-2022 Monocytes/100 WBC (Bld) 7.4 % . [facility] Neutrophils Auto (Bld) [#/Vo l]Ordered By: Tommy Bowen on 02-25-2022 Neutrophils (Bld) [#/Vol] 5.2 10*3/uL 1.8-7.7 [facility] Neutrophils/100 WBC Auto (Bl d)Ordered By: Tommy Bowen on 02-25-2022 Neutrophils/100 WBC (Bld) 65.9 % . [facility] No Panel InformationOrdered By: Tommy Bowen on 02-25-2022 Estimated GFR () > 60 mL/Min [facility] Comment on above: GFR estimated refere nce range: According to KDOQI guidelines, <60 ml/min/1.73m2 is sufficient to diagnose a patient with chronic kidney disease. Pharmacy Creatinine Clearance (Chem 94.82 [facility] Platelet mean volume Auto (B ld) [Entitic vol]Ordered By: Tommy Bowen on 02-25-2022 Platelet mean volume (Bld) [Entitic vol] 8.1 fL 6.3-10.7 [facility] Platelets Auto (Bld) [#/Vol] Ordered By: Tommy Bowen on 02-25-2022 Platelets (Bld) [#/Vol] 260 10*3/uL 150-450 [facility] Protein [Mass/volume] in Ser um or PlasmaOrdered By: Tommy Bowen on 02-25-2022 Protein [Mass/Vol] 7.3 g/dL 6.1-7.9 [facility] RBC Auto (Bld) [#/Vol]Ordere d By: Tommy Bowen on 02-25-2022 RBC (Bld) [#/Vol] 4.67 10*6/uL 3.60-5.00 [facility] Serum or plasma alanine white otransferase measurement without P-5'-P (enzymatic activiOrdered By: Tommy Bowen on 02-25-2022 ALT No additional P-5'-P [Catalytic activity/Vol] 11 U/L 10-60 [facility] Serum or plasma albumin/glob ulin mass ratioOrdered By: Tommy Bowen on 02-25-2022 Albumin/Globulin [Mass ratio] 1.3 {ratio} [facility] Serum or plasma alkaline ignacio sphatase measurement (enzymatic activity/volume)Ordered By: Tommy Bowen on 02-25-2022 ALP [Catalytic activity/Vol] 52 U/L 32-92 [facility] Serum or plasma anion gap de terminationOrdered By: Tommy Bowen on 02-25-2022 Anion gap [Moles/Vol] 13.5 mmol/L 6.0-15.0 [facility] Serum or plasma aspartate am inotransferase measurement (enzymatic activity/volume)Ordered By: Tommy Bowen on 02-25-2022 AST [Catalytic activity/Vol] 18 U/L 10-42 [facility] Serum or plasma calcium randi urement (mass/volume)Ordered By: Tommy Bowen on 02-25-2022 Calcium [Mass/Vol] 9.6 mg/dL 8.2-10.2 [facility] Serum or plasma chloride melonie surement (moles/volume)Ordered By: Tommy Bowen on 02-25-2022 Chloride [Moles/Vol] 101 mmol/L 95-114 [facility] Serum or plasma glucose radni urement (mass/volume)Ordered By: Tommy Bowen on 02-25-2022 Glucose [Mass/Vol] 98 mg/dL 70-100 [facility] Comment on above: ADA recommended refe rence [...] on 02-25-2022 Potassium [Moles/Vol] 4.0 mmol/L 3.5-5.1 [facility] Serum or plasma sodium measu rement (moles/volume)Ordered By: Tommy Bowen on 02-25-2022 Sodium [Moles/Vol] 139 mmol/L 136-146 [facility] Serum or plasma total biliru bin measurement (mass/volume)Ordered By: Tommy Bowen on 02-25-2022 Bilirubin [Mass/Vol] 0.6 mg/dL 0.3-1.2 [facility] Serum or plasma total carbon dioxide measurement (moles/volume)Ordered By: Tommy Bowen on 02-25-2022 CO2 [Moles/Vol] 28.5 mmol/L 22.0-30.0 [facility] Serum or plasma urea nitroge n measurement (mass/volume)Ordered By: Tommy Bowen on 02-25-2022 Urea nitrogen [Mass/Vol] 7 mg/dL 9-23 [facility] CBC AUTO DIFFon 01-03-2022 BASO # 0.0 103/ul Normal 0.0-0.1 [facility] Comment on above: Performed By: #### C BC #### [facility] [address] [address] [address] Jovanni Maya Basophils/100 WBC (Bld) 0.2 % Normal 0.2-2.0 [facility] Comment on above: Performed By: #### C BC #### [facility] [address] [address] [address] Jovanni Maya EO # 0.0 103/ul Normal 0.0-0.7 [facility] Comment on above: Performed By: #### C BC #### [facility] [address] [address] [address] Jovanni Maya Eosinophils/100 WBC (Bld) 0.1 % Critically low 0.9-7.0 [facility] Comment on above: Performed By: #### C BC #### [facility] [address] [address] [address] Jovanni Maya Erythrocyte distribution width (RBC) [Ratio] 12.4 % Normal 11.0-15.0 [facility] Comment on above: Performed By: #### C BC #### [facility] [address] [place] [address] Dr. Jovanni Maya Hematocrit (Bld) [Volume fraction] 39.2 % Normal 36.0-48.0 [facility] Comment on above: Performed By: #### C BC #### [facility] [address] [place] [address] Dr. Jovanni Maya Hemoglobin (Bld) [Mass/Vol] 13.1 g/dL Normal 12.0-16.0 [facility] Comment on above: Performed By: #### C BC #### [facility] [address] [place] [address] Dr. Jovanni Maya IG # 0.05 10e3/ul Critically high 0.00-0.03 [facility] Comment on above: Performed By: #### C BC #### [facility] [address] [place] [address] Dr. Jovanni Maya IG % 0.3 % Normal 0.0-0.5 [facility] Comment on above: Performed By: #### C BC #### [facility] [facility] [address] [place] [address] Dr. Jovanni Maya LYMPH # 2.1 103/ul Normal 1.2-3.8 [facility] Comment on above: Performed By: #### C BC #### [facility] [address] [place] [address] Dr. Jovanni Maya Lymphocytes/100 WBC (Bld) 14.3 % Critically low 20.5-60.0 [facility] Comment on above: Performed By: #### C BC #### [facility] [address] [place] [address] Dr. Jovanni Maya MANUAL DIFF REQ NO Normal [facility] Comment on above: Performed By: #### C BC #### [facility] [address] [place] [address] Dr. Jovanni Maya MCH (RBC) [Entitic mass] 29.4 pg Normal 26.7-34.0 [facility] Comment on above: Performed By: #### C BC #### [facility] [address] [address] [address] Jovanni Maya MCHC (RBC) [Mass/Vol] 33.4 g/dL Normal 29.9-35.2 [facility] Comment on above: Performed By: #### C BC #### [facility] [address] [address] [address] Jovanni Maya MCV (RBC) [Entitic vol] 87.9 fL Normal 81.0-99.0 [facility] Comment on above: Performed By: #### C BC #### [facility] [address] [address] [address] Jovanni Maya MONO # 1.3 103/ul Critically high 0.3-0.8 [facility] Comment on above: Performed By: #### C BC #### [facility] [address] [address] [address] Jovanni Maya Monocytes/100 WBC (Bld) 8.4 % Normal 1.7-12.0 [facility] Comment on above: Performed By: #### C BC #### [facility] [address] [address] [address] Jovanni Maya NEUT # 11.4 103/ul Critically high 1.4-6.5 [facility] Comment on above: Performed By: #### C BC #### [facility] [address] [address] [address] Jovanni Maya Neutrophils/100 WBC (Bld) 76.7 % Critically high 43.0-75.0 [facility] Comment on above: Performed By: #### C BC #### [facility] [address] [address] [address] Jovanni Maya Platelet mean volume (Bld) [Entitic vol] 9.4 fL Critically low 9.5-13.5 [facility] Comment on above: Performed By: #### C BC #### [facility] [address] [address] [address] Jovanni Maya PLT 276 103/ul Normal 150-450 [facility] Comment on above: Performed By: #### C BC #### [facility] [address] [address] [address] Jovanni Maya RBC 4.46 106/ul Normal 4.20-5.40 [facility] Comment on above: Performed By: #### C BC #### [facility] [address] [address] [address] Jovanni Maya WBC 14.9 103/ul Critically high 4.0-11.0 [facility] Comment on above: Performed By: #### C BC #### [facility] [address] [address] [address] Jovanni Maya PROF CHEM 8 (BAS METB)on Anion gap [Moles/Vol] 14.2 mmol/L Normal [facility] Comment on above: Performed By: #### P REG, ACETON #### [facility] [address] [place] [address] Dr. Jovanni Maya Calcium [Mass/Vol] 9.3 mg/dL Normal 8.5-10.1 [facility] Comment on above: Performed By: #### P REG, ACETON #### [facility] [address] [address] [address] Jovanni Maya Chloride [Moles/Vol] 103 mmol/L Normal 98-107 [facility] Comment on above: Performed By: #### P REG, ACETON #### [facility] [address] [address] [address] Jovanni Maya CO2 [Moles/Vol] 26.6 mmol/L Normal 21.0-32.0 [facility] Comment on above: Performed By: #### P REG, ACETON #### [facility] [address] [address] [address] Jovanni Maya Creatinine [Mass/Vol] 0.80 mg/dL Normal 0.55-1.02 [facility] Comment on above: Performed By: #### P REG, ACETON #### [facility] [address] [address] [address] Jovanni Maya EGFR-AF PALAUAN >60 Normal >=60 [facility] Comment on above: Performed By: #### P REG, ACETON #### [facility] [address] [address] [address] Jovanni Maya EGFR-NON AF PALAUAN >60 Normal >=60 [facility] Comment on above: Performed By: #### P REG, ACETON #### [facility] [address] [address] [address] Jovanni Maya Glucose [Mass/Vol] 118 mg/dL Critically high 74-106 [facility] Comment on above: Performed By: #### P REG, ACETON #### [facility] [address] [address] [address] Jovanni Maya Potassium [Moles/Vol] 3.8 mmol/L Normal 3.5-5.1 [facility] Comment on above: Performed By: #### P REG, ACETON #### [facility] [address] [address] [address] Jovanni Maya Sodium [Moles/Vol] 140 mmol/L Normal 136-145 [facility] Comment on above: Performed By: #### P REG, ACETON #### [facility] [address] [address] [address] Jovanni Maya Urea nitrogen [Mass/Vol] 12.0 mg/dL Normal 7.0-18.0 [facility] Comment on above: Performed By: #### P REG, ACETON #### [facility] [address] [address] [address] Jovanni Maya Urea nitrogen/Creatinine [Mass ratio] 15.0 mg/mg Normal [facility] Comment on above: Performed By: #### P REG, ACETON #### [facility] [address] [address] [address] Jovanni Maya XR CHEST 2 Von [...] [place]ED [place]LE Date: 2022-01-03 01:30 Normal [facility] CBC AUTO DIFFon 11-29-2021 BASO # 0.0 103/ul Normal 0.0-0.1 [facility] Comment on above: Performed By: #### C DANIEL, HSTROPN #### [facility] [address] [place] [address] Dr. Jovanni Maya Basophils/100 WBC (Bld) 0.2 % Normal 0.2-2.0 [facility] Comment on above: Performed By: #### C DANIEL, HSTROPN #### [facility] [address] [place] [address] Dr. Jovanni Maya EO # 0.2 103/ul Normal 0.0-0.7 [facility] Comment on above: Performed By: #### C DANIEL, HSTROPN #### [facility] [address] [place] [address] Dr. Jovanni Maya Eosinophils/100 WBC (Bld) 3.2 % Normal 0.9-7.0 [facility] Comment on above: Performed By: #### C DANIEL, HSTROPN #### [facility] [address] [place] [address] Dr. Jovanni Maya Erythrocyte distribution width (RBC) [Ratio] 12.2 % Normal 11.0-15.0 [facility] Comment on above: Performed By: #### C DANIEL, HSTROPN #### [facility] [address] [place] [address] Dr. Jovanni Maya Hematocrit (Bld) [Volume fraction] 34.3 % Critically low 36.0-48.0 [facility] Comment on above: Performed By: #### C DANIEL, HSTROPN #### [facility] [address] [place] [address] Dr. Jovanni Maya Hemoglobin (Bld) [Mass/Vol] 11.4 g/dL Critically low 12.0-16.0 [facility] Comment on above: Performed By: #### C MP, HSTROPN #### [facility] [address] [address] [address] Jovanni Maya IG # 0.01 10e3/ul Normal 0.00-0.03 [facility] Comment on above: Performed By: #### C MP, HSTROPN #### [facility] [address] [address] [address] Jovanni Maya IG % 0.2 % Normal 0.0-0.5 [facility] Comment on above: Performed By: #### C MP, HSTROPN #### [facility] [address] [place] [address] Dr. Jovanni Maya LYMPH # 2.5 103/ul Normal 1.2-3.8 [facility] Comment on above: Performed By: #### C MP, HSTROPN #### [facility] [address] [place] [address] Dr. Jovanni Maya Lymphocytes/100 WBC (Bld) 38.1 % Normal 20.5-60.0 [facility] Comment on above: Performed By: #### C MP, HSTROPN #### [facility] [address] [place] [address] Dr. Jovanni Maya MANUAL DIFF REQ NO Normal [facility] Comment on above: Performed By: #### C MP, HSTROPN #### [facility] [address] [place] [address] Dr. Jovanni Maya MCH (RBC) [Entitic mass] 29.6 pg Normal 26.7-34.0 [facility] Comment on above: Performed By: #### C MP, HSTROPN #### [facility] [address] [place] [address] Dr. Jovanni Maya MCHC (RBC) [Mass/Vol] 33.2 g/dL Normal 29.9-35.2 [facility] Comment on above: Performed By: #### C MP, HSTROPN #### [facility] [address] [place] [address] Dr. Jovanni Maya MCV (RBC) [Entitic vol] 89.1 fL Normal 81.0-99.0 [facility] Comment on above: Performed By: #### C DANIEL, HSTROPN #### [facility] [address] [place] [address] Dr. Jovanni Maya MONO # 0.7 103/ul Normal 0.3-0.8 [facility] Comment on above: Performed By: #### C DANIEL, HSTROPN #### [facility] [address] [place] [address] Dr. Jovanni Maya Monocytes/100 WBC (Bld) 10.2 % Normal 1.7-12.0 [facility] Comment on above: Performed By: #### C DANIEL, HSTROPN #### [facility] [address] [place] [address] Dr. Jovanni Maya NEUT # 3.2 103/ul Normal 1.4-6.5 [facility] Comment on above: Performed By: #### C DANIEL, HSTROPN #### [facility] [address] [place] [address] Dr. Jovanni Maya Neutrophils/100 WBC (Bld) 48.1 % Normal 43.0-75.0 [facility] Comment on above: Performed By: #### C DANIEL, HSTROPN #### [facility] [address] [place] [address] Dr. Jovanni Maya Platelet mean volume (Bld) [Entitic vol] 9.8 fL Normal 9.5-13.5 [facility] Comment on above: Performed By: #### C MP, HSTROPN #### [facility] [address] [place] [address] Dr. Jovanni Maya PLT 222 103/ul Normal 150-450 [facility] Comment on above: Performed By: #### C DANIEL, HSTROPN #### [facility] [address] [place] [address] Dr. Jovanni Maya RBC 3.85 106/ul Critically low 4.20-5.40 [facility] Comment on above: Performed By: #### C DANIEL, HSTROPN #### [facility] [address] [address] [address] Jovanni Maya WBC 6.5 103/ul Normal 4.0-11.0 [facility] Comment on above: Performed By: #### C MP, HSTROPN #### [facility] [address] [place] [address] Dr. Jovanni Maya CULTURE URINEon 11-29-2021 CULTURE URINE Culture Observations : LIGHT GROWTH OF MIXED GENITAL ZANDER. NO POTENTIAL PATHOGENS SEEN. Normal [facility] Comment on above: Performed By: #### C MP, HSTROPN #### [facility] [address] [place] [address] Dr. Joavnni Maya DRUG SCREEN RAPID (URINE)on 11-29-2021 AMP Negative Normal NEGATIVE [facility] Comment on above: Performed By: #### P REG, ACETON #### [facility] [address] [place] [address] Dr. Jovanni Maya BAR Negative Normal NEGATIVE [facility] Comment on above: Performed By: #### P REG, ACETON #### [facility] [address] [place] [address] Dr. Jovanni Maya BUP Negative Normal NEGATIVE [facility] Comment on above: Performed By: #### P REG, ACETON #### [facility] [address] [place] [address] Dr. Jovanni Maya BZO Positive Abnormal NEGATIVE [facility] Comment on above: Performed By: #### P REG, ACETON #### [facility] [address] [place] [address] Dr. Jovanni Maya DARIEN Negative Normal NEGATIVE [facility] Comment on above: Performed By: #### P REG, ACETON #### [facility] [address] [place] [address] Dr. Jovanni Maya CUT-OFFS SEE BELOW Normal [facility] Comment on above: Result Comment: AMP (Amphetamine): [...] Performed By: #### P REG, ACETON #### [facility] [address] [place] [address] Dr. Jovanni Maya DRUG CUT HEADER DRUG CLASS TEST SYST EM CUT-OFF CONCENTRATIONS ARE FOLLOWS: Normal [facility] Comment on above: Performed By: #### P REG, ACETON #### [facility] [address] [place] [address] Dr. Jovanni Maya mAMP Negative Normal NEGATIVE [facility] Comment on above: Performed By: #### P REG, ACETON #### [facility] [address] [place] [address] Dr. Jovanni Maya MTD Negative Normal NEGATIVE [facility] Comment on above: Performed By: #### P REG, ACETON #### [facility] [address] [place] [address] Dr. Jovanni Maya OPI Negative Normal NEGATIVE [facility] Comment on above: Performed By: #### P REG, ACETON #### [facility] [address] [place] [address] Dr. Jovanni Maya OXY Positive Abnormal NEGATIVE [facility] Comment on above: Performed By: #### P REG, ACETON #### [facility] [address] [place] [address] Dr. Jovanni Maya PCP Negative Normal NEGATIVE [facility] Comment on above: Performed By: #### P REG, ACETON #### [facility] [address] [place] [address] Dr. Jovanni Maya PPX Negative Normal NEGATIVE [facility] Comment on above: Performed By: #### P REG, ACETON #### [facility] [address] [place] [address] Dr. Jovanni Maya TCA Negative Normal NEGATIVE [facility] Comment on above: Performed By: #### P REG, ACETON #### [facility] [address] [address] [address] Jovanni Maya THC Positive Abnormal NEGATIVE [facility] Comment on above: Performed By: #### P REG, ACETON #### [facility] [address] [place] [address] Dr. Jovanni Maya ER URINE PROFILEon 2 Bilirubin Ql (U) SMALL Abnormal NEGATIVE [facility] Comment on above: Performed By: #### P REG, ACETON #### [facility] [address] [place] [address] Dr. Jovanni Maya Clarity (U) CLEAR Normal CLEAR [facility] Comment on above: Performed By: #### P REG, ACETON #### [facility] [address] [place] [address] Dr. Jovanni Maya Color (U) BROWN Abnormal YELLOW [facility] Comment on above: Performed By: #### P REG, ACETON #### [facility] [address] [place] [address] Dr. Jovanni Maya ERUAHD A micrscopic examina tion will be performed if indicated. Normal [facility] Comment on above: Performed By: #### P REG, ACETON #### [facility] [address] [place] [address] Dr. Jovanni Maya Glucose Ql (U) Negative Normal NEGATIVE [facility] Comment on above: Performed By: #### P REG, ACETON #### [facility] [address] [place] [address] Dr. Jovanni Maya Hemoglobin Ql (U) LARGE Abnormal NEGATIVE [facility] Comment on above: Performed By: #### P REG, ACETON #### [facility] [address] [place] [address] Dr. Jovanni Maya Ketones Ql (U) Negative Normal NEGATIVE [facility] Comment on above: Performed By: #### P REG, ACETON #### [facility] [address] [place] [address] Dr. Jovanni Maya LEUKOCYTES MODERATE Abnormal NEGATIVE [facility] Comment on above: Performed By: #### P REG, ACETON #### [facility] [address] [address] [address] Jovanni Maya Nitrite Ql (U) Negative Normal NEGATIVE [facility] Comment on above: Performed By: #### P REG, ACETON #### [facility] [address] [address] [address] Jovanni Maya pH (U) 6.0 [pH] Normal 5-9 [facility] Comment on above: Performed By: #### P REG, ACETON #### [facility] [address] [place] [address] Dr. Jovanni Maya Protein (U) [Mass/Vol] 100 mg/dL Abnormal NEGATIVE/ TRACE [facility] Comment on above: Performed By: #### P REG, ACETON #### [facility] [address] [place] [address] Dr. Jovanni Maya SPEC GRAVITY 1.025 Normal 1.005-<=1.[address] [place] [address] Comment on above: Performed By: #### P REG, ACETON #### [facility] [address] [place] [address] Dr. Jovanni Maya UR MICRO IND INDICATED Normal [facility] Comment on above: Performed By: #### P REG, ACETON #### [facility] [address] [place] [address] Dr. Jovanni Maya Urobilinogen Qn (U) 1.0 {Carlos A'U}/dL Normal 0.2 - 1. 0 [facility] Comment on above: Performed By: #### P REG, ACETON #### [facility] [address] [place] [address] Dr. Jovanni Maya LACTATE/LACTIC ACIDon 2021 Lactate [Moles/Vol] 1.2 mmol/L Normal 0.4-1.9 [facility] Comment on above: Performed By: #### L ACT #### [facility] [address] [place] [address] Dr. Jovanni Maya URon 11-29-2021 , QUAL Negative Normal NEGATIVE [facility] Comment on above: Performed By: #### P REG, ACETON #### [facility] [address] [address] [address] Jovanni Maya PROF CHEM 8 (BAS METB)on Anion gap [Moles/Vol] 11.0 mmol/L Normal [facility] Comment on above: Performed By: #### C MP, HSTROPN #### [facility] [address] [address] [address] Jovanni Maya Calcium [Mass/Vol] 8.7 mg/dL Normal 8.5-10.1 [facility] Comment on above: Performed By: #### C MP, HSTROPN #### [facility] [address] [address] [address] Jovanni Maya Chloride [Moles/Vol] 105 mmol/L Normal 98-107 [facility] Comment on above: Performed By: #### C MP, HSTROPN #### [facility] [address] [address] [address] Jovanni Maya CO2 [Moles/Vol] 27.5 mmol/L Normal 21.0-32.0 [facility] Comment on above: Performed By: #### C MP, HSTROPN #### [facility] [address] [place] [address] Dr. Jovanni Maya Creatinine [Mass/Vol] 0.84 mg/dL Normal 0.55-1.02 [facility] Comment on above: Performed By: #### C MP, HSTROPN #### [facility] [address] [place] [address] Dr. Jovanni Maya EGFR-AF PALAUAN >60 Normal >=60 [facility] Comment on above: Performed By: #### C MP, HSTROPN #### [facility] [address] [place] [address] Dr. Jovanni Maya EGFR-NON AF PALAUAN >60 Normal >=60 [facility] Comment on above: Performed By: #### C MP, HSTROPN #### [facility] [address] [place], [place] [address] Dr. Jovanni Maya Glucose [Mass/Vol] 103 mg/dL Normal 74-106 [facility] Comment on above: Performed By: #### C DANIEL, HSTROPN #### [facility] [address] [place] [address] Dr. Jovanni Maya Potassium [Moles/Vol] 3.5 mmol/L Normal 3.5-5.1 [facility] Comment on above: Performed By: #### C MP, HSTROPN #### [facility] [address] [place] [address] Dr. Jovanni Maya Sodium [Moles/Vol] 140 mmol/L Normal 136-145 [facility] Comment on above: Performed By: #### C DANIEL, HSTROPN #### [facility] [address] [place] [address] Dr. Jovanni Maya Urea nitrogen [Mass/Vol] 12.0 mg/dL Normal 7.0-18.0 [facility] Comment on above: Performed By: #### C DANIEL, HSTROPN #### [facility] [address] [place] [address] Dr. Jovanni Maya Urea nitrogen/Creatinine [Mass ratio] 14.3 mg/mg Normal [facility] Comment on above: Performed By: #### C DANIEL, HSTROPN #### [facility] [address] [place] [address] Dr. Jovanni Maya URINE MICROSCOPIC ONLYon BACTERIA TRACE Abnormal NONE SEEN [facility] Comment on above: Performed By: #### P REG, ACETON #### [facility] [address] [place] [address] Dr. Jovanni Maya Bacteria identified Cx Nom (U) INDICATED Normal [facility] Comment on above: Performed By: #### P REG, ACETON #### [facility] [address] [place] [address] Dr. Jovanni Maya CA OX CRYSTALS RARE Normal [facility] Comment on above: Performed By: #### P REG, ACETON #### [facility] [address] [place] [address] Dr. Jovanni Maya CAST SEEN Abnormal NONE SEEN [facility] Comment on above: Performed By: #### P REG, ACETON #### [facility] [address] [place] [address] Dr. Jovanni Maya Crystals LM Nom (Urine sed) SEEN Abnormal NONE SEEN [facility] Comment on above: Performed By: #### P REG, ACETON #### [facility] [address] [place] [address] Dr. Jovanni Maya Epithelial cells LM Ql (Urine sed) FEW Abnormal NONE SEEN /RARE [facility] Comment on above: Performed By: #### P REG, ACETON #### [facility] [address] [place] [address] Dr. Jovanni Maya HYALINE CAST RARE Normal [facility] Comment on above: Performed By: #### P REG, ACETON #### [facility] [address] [place] [address] Dr. Jovanni Maya MUCOUS SMALL Abnormal NONE SEEN [facility] Comment on above: Performed By: #### P REG, ACETON #### [facility] [address] [place] [address] Dr. Jovanni Maya RBC 20-50 Abnormal 0-2 [facility] Comment on above: Performed By: #### P REG, ACETON #### [facility] [address] [place] [address] Dr. Jovanni Maya WBC 5-10 Abnormal NONE SEEN [facility] Comment on above: Performed By: #### P REG, ACETON #### [facility] [address] [place] [address] Dr. Jovanni Maya CBC AUTO DIFFon 10-16-2021 BASO # 0.0 103/ul Normal 0.0-0.1 [facility] System Comment on above: Performed By: #### P REG, ACETON #### [facility] [address] [place] [address] Dr. Jovanni Maya Basophils/100 WBC (Bld) 0.2 % Normal 0.2-2.0 [facility] Comment on above: Performed By: #### P REG, ACETON #### [facility] [address] [place] [address] Dr. Jovanni Maya EO # 0.1 103/ul Normal 0.0-0.7 [facility] Comment on above: Performed By: #### P REG, ACETON #### [facility] [address] [place] [address] Dr. Jovanni Maya Eosinophils/100 WBC (Bld) 0.8 % Critically low 0.9-7.0 [facility] Comment on above: Performed By: #### P REG, ACETON #### [facility] [address] [place] [address] Dr. Jovanni Maya Erythrocyte distribution width (RBC) [Ratio] 12.2 % Normal 11.0-15.0 [facility] Comment on above: Performed By: #### P REG, ACETON #### [facility] [address] [place] [address] Dr. Jovanni Maya Hematocrit (Bld) [Volume fraction] 42.4 % Normal 36.0-48.0 [facility] Comment on above: Performed By: #### P REG, ACETON #### [facility] [address] [place] [address] Dr. Jovanni Maya Hemoglobin (Bld) [Mass/Vol] 14.5 g/dL Normal 12.0-16.0 [facility] Comment on above: Performed By: #### P REG, ACETON #### [facility] [address] [place] [address] Dr. Jovanni Maya IG # 0.04 10e3/ul Critically high 0.00-0.03 [facility] Comment on above: Performed By: #### P REG, ACETON #### [facility] [address] [place] [address] Dr. Jovanni Maya IG % 0.5 % Normal 0.0-0.5 [facility] Comment on above: Performed By: #### P REG, ACETON #### [facility] [address] [place] [address] Dr. Jovanni Maya LYMPH # 2.8 103/ul Normal 1.2-3.8 [facility] Comment on above: Performed By: #### P REG, ACETON #### [facility] [address] [place] [address] Dr. Jovanni Maya Lymphocytes/100 WBC (Bld) 31.8 % Normal 20.5-60.0 [facility] Comment on above: Performed By: #### P REG, ACETON #### [facility] [address] [place] [address] Dr. Jovanni Maya MANUAL DIFF REQ NO Normal [facility] Comment on above: Performed By: #### P REG, ACETON #### [facility] [address] [place] [address] Dr. Jovanni Maya MCH (RBC) [Entitic mass] 29.8 pg Normal 26.7-34.0 [facility] Comment on above: Performed By: #### P REG, ACETON #### [facility] [address] [place] [address] Dr. Jovanni Maya MCHC (RBC) [Mass/Vol] 34.2 g/dL Normal 29.9-35.2 [facility] Comment on above: Performed By: #### P REG, ACETON #### [facility] [address] [place] [address] Dr. Jovanni Maya MCV (RBC) [Entitic vol] 87.1 fL Normal 81.0-99.0 [facility] Comment on above: Performed By: #### P REG, ACETON #### [facility] [address] [place] [address] Dr. Jovanni Maya MONO # 0.6 103/ul Normal 0.3-0.8 [facility] Comment on above: Performed By: #### P REG, ACETON #### [facility] [address] [place] [address] Dr. Jovanni Maya Monocytes/100 WBC (Bld) 7.1 % Normal 1.7-12.0 [facility] Comment on above: Performed By: #### P REG, ACETON #### [facility] [address] [place] [address] Dr. Jovanni Maya NEUT # 5.2 103/ul Normal 1.4-6.5 [facility] Comment on above: Performed By: #### P REG, ACETON #### [facility] [address] [place] [address] Dr. Jovanni Maya Neutrophils/100 WBC (Bld) 59.6 % Normal 43.0-75.0 [facility] Comment on above: Performed By: #### P REG, ACETON #### [facility] [address] [place] [address] Dr. Jovanni Maya Platelet mean volume (Bld) [Entitic vol] 9.2 fL Critically low 9.5-13.5 [facility] Comment on above: Performed By: #### P REG, ACETON #### [facility] [address] [place] [address] Dr. Jovanni Maya PLT 301 103/ul Normal 150-450 [facility] Comment on above: Performed By: #### P REG, ACETON #### [facility] [address] [place] [address] Dr. Jovanni Maya RBC 4.87 106/ul Normal 4.20-5.40 [facility] Comment on above: Performed By: #### P REG, ACETON #### [facility] [address] [place] [address] Dr. Jovanni Maya WBC 8.7 103/ul Normal 4.0-11.0 [facility] Comment on above: Performed By: #### P REG, ACETON #### [facility] [address] [place] [address] Dr. Jovanni Maya CULTURE URINEon 10-16-2021 CULTURE URINE Culture Observations : LIGHT GROWTH OF MIXED GENITAL ZANDER. NO POTENTIAL PATHOGENS SEEN. Normal [facility] Comment on above: Performed By: #### C MP, HSTROPN #### [facility] [address] [place] [address] Dr. Jovanni Maya ER URINE PROFILEon 2 Bilirubin Ql (U) Negative Normal NEGATIVE [facility] Comment on above: Performed By: #### P REG, ACETON #### [facility] [address] [place] [address] Dr. Jovanni Maya Clarity (U) CLEAR Normal CLEAR [facility] Comment on above: Performed By: #### P REG, ACETON #### [facility] [address] [place] [address] Dr. Jovanni Maya Color (U) LT. YELLOW Normal YELLOW [facility] Comment on above: Performed By: #### P REG, ACETON #### [facility] [address] [place] [address] Dr. Jovanni Maya ERUAHD A micrscopic examina tion will be performed if indicated. Normal [facility] Comment on above: Performed By: #### P REG, ACETON #### [facility] [address] [place] [address] Dr. Jovanni Maya Glucose Ql (U) Negative Normal NEGATIVE [facility] Comment on above: Performed By: #### P REG, ACETON #### [facility] [address] [place] [address] Dr. Jovanni Maya Hemoglobin Ql (U) LARGE Abnormal NEGATIVE [facility] Comment on above: Performed By: #### P REG, ACETON #### [facility] [address] [place] [address] Dr. Jovanni Maya Ketones Ql (U) TRACE Abnormal NEGATIVE [facility] Comment on above: Performed By: #### P REG, ACETON #### [facility] [address] [place] [address] Dr. Jovanni Maya LEUKOCYTES MODERATE Abnormal NEGATIVE [facility] Comment on above: Performed By: #### P REG, ACETON #### [facility] [address] [place] [address] Dr. Jovanni Maya Nitrite Ql (U) Negative Normal NEGATIVE [facility] Comment on above: Performed By: #### P REG, ACETON #### [facility] [address] [place] [address] Dr. Jovanni Maya pH (U) [pH] Abnormal 5-9 [facility] Comment on above: Performed By: #### P REG, ACETON #### [facility] [address] [place] [address] Dr. Jovanni Maya Protein (U) [Mass/Vol] 100 mg/dL Abnormal NEGATIVE/ TRACE [facility] Comment on above: Performed By: #### P REG, ACETON #### [facility] [address] [place] [address] Dr. Jovanni Maya SPEC GRAVITY 1.015 Normal 1.005-<=1.0 25 [facility] Comment on above: Performed By: #### P REG, ACETON #### [facility] [address] [place] [address] Dr. Jovanni Maya UR MICRO IND INDICATED Normal [facility] Comment on above: Performed By: #### P REG, ACETON #### [facility] [address] [place] [address] Dr. Jovanni Maya Urobilinogen Qn (U) 1.0 {Carlos A'U}/dL Normal 0.2 - 1. 0 [facility] Comment on above: Performed By: #### P REG, ACETON #### [facility] [address] [place] [address] Dr. Jovanni Maya LIPASEon 10-16-2021 Lipase [Catalytic activity/Vol] 85.0 U/L Normal 23.0-300.0 [facility] Comment on above: Performed By: #### P REG, ACETON #### [facility] [address] [place] [address] Dr. Jovanni Maya URon 10-16-2021 , QUAL Negative Normal NEGATIVE [facility] Comment on above: Performed By: #### P REG, ACETON #### [facility] [address] [place] [address] Dr. Jovanni Maya PROF 14(COMP METB)on 022 Albumin [Mass/Vol] 4.4 g/dL Normal 3.4-5.0 [facility] Comment on above: Performed By: #### P REG, ACETON #### [facility] [address] [place] [address] Dr. Jovanni Maya Albumin/Globulin [Mass ratio] 1.2 {ratio} Normal [facility] Comment on above: Performed By: #### P REG, ACETON #### [facility] [address] [address] [address] Jovanni Maya ALP [Catalytic activity/Vol] 66 U/L Normal 46-116 [facility] Comment on above: Performed By: #### P REG, ACETON #### [facility] [address] [address] [address] Jovanni Maya ALT [Catalytic activity/Vol] 13 U/L Critically low 14-59 [facility] Comment on above: Performed By: #### P REG, ACETON #### [facility] [address] [address] [address] Jovanni Maya Anion gap [Moles/Vol] 11.4 mmol/L Normal [facility] Comment on above: Performed By: #### P REG, ACETON #### [facility] [address] [place] [address] Dr. Jovanni Maya AST [Catalytic activity/Vol] 13 U/L Critically low 15-37 [facility] Comment on above: Performed By: #### P REG, ACETON #### [facility] [address] [address] [address] Jovanni Maya Bilirubin [Mass/Vol] 0.6 mg/dL Normal 0.2-1.3 [facility] Comment on above: Performed By: #### P REG, ACETON #### [facility] [address] [address] [address] Jovanni Maya Calcium [Mass/Vol] 8.7 mg/dL Normal 8.5-10.1 [facility] Comment on above: Performed By: #### P REG, ACETON #### [facility] [address] [address] [address] Jovanni Maya Chloride [Moles/Vol] 101 mmol/L Normal 98-107 [facility] Comment on above: Performed By: #### P REG, ACETON #### [facility] [address] [address] [address] Jovanni Maya CO2 [Moles/Vol] 27.5 mmol/L Normal 22.0-30.0 [facility] Comment on above: Performed By: #### P REG, ACETON #### [facility] [address] [address] [address] Jovanni Maya Creatinine [Mass/Vol] 0.80 mg/dL Normal 0.55-1.02 [facility] Comment on above: Performed By: #### P REG, ACETON #### [facility] [address] [address] [address] Jovanni Maya EGFR-AF PALAUAN >60 Normal >=60 [facility] Comment on above: Performed By: #### P REG, ACETON #### [facility] [address] [address] [address] Jovanni Maya EGFR-NON AF PALAUAN >60 Normal >=60 [facility] Comment on above: Performed By: #### P REG, ACETON #### [facility] [address] [address] [address] Jovanni Maya Globulin (S) [Mass/Vol] 3.7 g/dL Normal [facility] Comment on above: Performed By: #### P REG, ACETON #### [facility] [address] [address] [address] Jovanni Maya Glucose [Mass/Vol] 90 mg/dL Normal 74-106 [facility] Comment on above: Performed By: #### P REG, ACETON #### [facility] [address] [address] [address] Jovanni Maya Potassium [Moles/Vol] 3.9 mmol/L Normal 3.4-5.0 [facility] Comment on above: Performed By: #### P REG, ACETON #### [facility] [address] [address] [address] Jovanni Maya Protein [Mass/Vol] 8.1 g/dL Normal 6.1-8.2 [facility] Comment on above: Performed By: #### P REG, ACETON #### [facility] [address] [address] [address] Jovanni Maya Sodium [Moles/Vol] 136 mmol/L Critically low 137-145 [facility] Comment on above: Performed By: #### P REG, ACETON #### [facility] [address] [address] [address] Jovanni Maya Urea nitrogen [Mass/Vol] 10.0 mg/dL Normal 7.0-18.0 [facility] Comment on above: Performed By: #### P REG, ACETON #### [facility] [address] [place] [address] Dr. Jovanni Maya Urea nitrogen/Creatinine [Mass ratio] 12.5 mg/mg Normal [facility] Comment on above: Performed By: #### P REG, ACETON #### [facility] [address] [place] [address] Dr. Jovanni Maya URINE MICROSCOPIC ONLYon BACTERIA MODERATE Abnormal NONE SEEN [facility] Comment on above: Performed By: #### P REG, ACETON #### [facility] [address] [place] [address] Dr. Jovanni Maya Bacteria identified Cx Nom (U) INDICATED Normal [facility] Comment on above: Performed By: #### P REG, ACETON #### [facility] [address] [place] [address] Dr. Jovanni Maya CA OX CRYSTALS RARE Normal [facility] Comment on above: Performed By: #### P REG, ACETON #### [facility] [address] [place] [address] Dr. Jovanni Maya CAST NONE SEEN Normal NONE SEEN [facility] Comment on above: Performed By: #### P REG, ACETON #### [facility] [address] [place] [address] Dr. Jovanni Maya Crystals LM Nom (Urine sed) SEEN Abnormal NONE SEEN [facility] Comment on above: Performed By: #### P REG, ACETON #### [facility] [address] [place] [address] Dr. Jovanni Maya Epithelial cells LM Ql (Urine sed) MODERATE Abnormal NONE SEEN /RARE [facility] Comment on above: Performed By: #### P REG, ACETON #### [facility] [address] [place] [address] Dr. Jovanni Maya MUCOUS NONE SEEN Normal NONE SEEN [facility] Comment on above: Performed By: #### P REG, ACETON #### [facility] [address] [address] [address] Jovanni Maya RBC 50-75 Abnormal 0-2 [facility] Comment on above: Performed By: #### P REG, ACETON #### [facility] [address] [address] [address] Jovanni Maya WBC 10-20 Abnormal NONE SEEN [facility] Comment on above: Performed By: #### P REG, ACETON #### [facility] [address] [address] [address] Jovanni Maya XR KUB 1 VIEWon [...] COSMO ALONSO Date: 2021-10-16 19:18 Normal [facility] Activated partial thrombopla stin time (aPTT) in platelet poor plasma by coagulation aOrdered By: Roberto Whittaker on 09-28-2021 aPTT Coag (PPP) [Time] 34.9 s 25.1-36.5 [facility] Albumin [Mass/volume] in Ser um or PlasmaOrdered By: Roberto Whittaker on 09-28-2021 Albumin [Mass/Vol] 4.3 g/dL 3.2-5.5 [facility] Basophils Auto (Bld) [#/Vol] Ordered By: Roberto Whittaker on 09-28-2021 Basophils (Bld) [#/Vol] 0.0 10*3/uL 0.0-0.2 [facility] Basophils/100 WBC Auto (Bld) Ordered By: Roberto Whittaker on 09-28-2021 Basophils/100 WBC (Bld) 0.7 % [facility] Blood hemoglobin measurement (mass/volume)Ordered By: Roberto Whittaker on 09-28-2021 Hemoglobin (Bld) [Mass/Vol] 14.7 g/dL 11.8-15.4 [facility] Blood leukocytes automated c ount (number/volume)Ordered By: Roberto Whittaker on 09-28-2021 WBC (Bld) [#/Vol] 6.2 10*3/uL 4.5-11.0 [facility] Creatinine and Glomerular fi ltration rate.predicted panel (S/P/Bld)Ordered By: Roberto Whittaker on 09-28-2021 Creatinine [Mass/Vol] 0.73 mg/dL 0.44-1.03 [facility] Direct bilirubin measurement Ordered By: Roberto Whittaker on 09-28-2021 Bilirubin.direct [Mass/Vol] mg/dL 0.0-0.4 [facility] Eosinophils Auto (Bld) [#/Vo l]Ordered By: Roberto Whittaker on 09-28-2021 Eosinophils (Bld) [#/Vol] 0.1 10*3/uL 0.0-0.45 [facility] Eosinophils/100 WBC Auto (Bl d)Ordered By: Roberto Whittaker on 09-28-2021 Eosinophils/100 WBC (Bld) 1.8 % [facility] Erythrocyte distribution wid th Auto (RBC) [Ratio]Ordered By: Roberto Whittaker on 09-28-2021 Erythrocyte distribution width (RBC) [Ratio] 13.1 % 11.9-15.3 [facility] Estimated glomerular filtrat ion rate (GFR) non- AmericanOrdered By: Roberto Whittaker on 09-28-2021 GFR/1.73 sq M.predicted among non-blacks MDRD (S/P/Bld) [Vol rate/Area] > 60 mL/Min [facility] Globulin Calc (S) [Mass/Vol] Ordered By: Roberto Whittaker on 09-28-2021 Globulin (S) [Mass/Vol] 3.2 g/dL [facility] Hematocrit Auto (Bld) [Volum e fraction]Ordered By: Roberto Whittaker on 09-28-2021 Hematocrit (Bld) [Volume fraction] 44.2 % 34.0-46.4 [facility] - Chemistry and C hemistry - challengeOrdered By: Roberto Whittaker on 09-28-2021 Lipase [Catalytic activity/Vol] 36.0 U/L 22-51 [facility] Natriuretic peptide B (Bld) [Mass/Vol] 17.0 pg/mL 5-100 [facility] - CoagulationOrde red By: Roberto Whittaker on 09-28-2021 PT Coag (PPP) [Time] 12.3 s 9.0-12.9 [facility] - Hematology and Cell countsOrdered By: Roberto Whittaker on 09-28-2021 Nucleated RBC/100 WBC (Bld) [Ratio] 0.0 % 0-0.5 [facility] Lymphocytes Auto (Bld) [#/Vo l]Ordered By: Roberto Whittaker on 09-28-2021 Lymphocytes (Bld) [#/Vol] 2.7 10*3/uL 1.00-4.8 [facility] Lymphocytes/100 WBC Auto (Bl d)Ordered By: Roberto Whittaker on 09-28-2021 Lymphocytes/100 WBC (Bld) 43.6 % [facility] MCH Auto (RBC) [Entitic mass ]Ordered By: Roberto Whittaker on 09-28-2021 MCH (RBC) [Entitic mass] 29.8 pg 24.7-34.3 [facility] MCHC Auto (RBC) [Mass/Vol]Or dered By: Roberto Whittaker on 09-28-2021 MCHC (RBC) [Mass/Vol] 33.2 g/dL 32.0-35.0 [facility] MCV Auto (RBC) [Entitic vol] Ordered By: Roberto Whittaker on 09-28-2021 MCV (RBC) [Entitic vol] 89.6 fL 80-100 [facility] Monocytes Auto (Bld) [#/Vol] Ordered By: Roberto Whittaker on 09-28-2021 Monocytes (Bld) [#/Vol] 0.4 10*3/uL 0.0-0.8 [facility] Monocytes/100 WBC Auto (Bld) Ordered By: Roberto Whittaker on 09-28-2021 Monocytes/100 WBC (Bld) 6.8 % [facility] Neutrophils Auto (Bld) [#/Vo l]Ordered By: Roberto Whittaker on 09-28-2021 Neutrophils (Bld) [#/Vol] 2.9 10*3/uL 1.8-7.7 [facility] Neutrophils/100 WBC Auto (Bl d)Ordered By: Roberto Whittaker on 09-28-2021 Neutrophils/100 WBC (Bld) 47.1 % [facility] No Panel InformationOrdered By: Roberto Whittaker on 09-28-2021 Estimated GFR () > 60 mL/Min [facility] Comment on above: GFR estimated refere nce range: According to KDOQI guidelines, <60 ml/min/1.73m2 is sufficient to diagnose a patient with chronic kidney disease. Pharmacy Creatinine Clearance (Chem 91.21 [facility] Platelet mean volume Auto (B ld) [Entitic vol]Ordered By: Roberto Whittaker on 09-28-2021 Platelet mean volume (Bld) [Entitic vol] 7.7 fL 6.3-10.7 [facility] Platelet poor plasma interna tional normalized ratio (INR) by coagulation assay (relatOrdered By: Roberto Whittaker on 09-28-2021 INR Coag (PPP) [Relative time] 1.1 {INR} [facility] Comment on above: INR Therapeutic Rang e [...] Platelets Auto (Bld) [#/Vol] Ordered By: Roberto Whittaker on 09-28-2021 Platelets (Bld) [#/Vol] 291 10*3/uL 150-450 [facility] Protein [Mass/volume] in Ser um or PlasmaOrdered By: Roberto Whittaker on 09-28-2021 Protein [Mass/Vol] 7.5 g/dL 6.1-7.9 [facility] RBC Auto (Bld) [#/Vol]Ordere d By: Roberto Whittaker on 09-28-2021 RBC (Bld) [#/Vol] 4.93 10*6/uL 3.60-5.00 [facility] Serum or plasma alanine white otransferase measurement without P-5'-P (enzymatic activiOrdered By: Roberto Whittaker on 09-28-2021 ALT No additional P-5'-P [Catalytic activity/Vol] 9 U/L 10-60 [facility] Serum or plasma albumin/glob ulin mass ratioOrdered By: Roberto Whittaker on 09-28-2021 Albumin/Globulin [Mass ratio] 1.3 {ratio} [facility] Serum or plasma alkaline ignacio sphatase measurement (enzymatic activity/volume)Ordered By: Roberto Whittaker on 09-28-2021 ALP [Catalytic activity/Vol] 51 U/L 32-92 [facility] Serum or plasma aspartate am inotransferase measurement (enzymatic activity/volume)Ordered By: Roberto Whittaker on 09-28-2021 AST [Catalytic activity/Vol] 16 U/L 10-42 [facility] Serum or plasma calcium randi urement (mass/volume)Ordered By: Roberto Whittaker on 09-28-2021 Calcium [Mass/Vol] 9.2 mg/dL 8.2-10.2 [facility] Serum or plasma chloride melonie surement (moles/volume)Ordered By: Roberto Whittaker on 09-28-2021 Chloride [Moles/Vol] 104 mmol/L 95-114 [facility] Serum or plasma glucose randi urement (mass/volume)Ordered By: Roberto Whittaker on 09-28-2021 Glucose [Mass/Vol] 100 mg/dL 70-100 [facility] Comment on above: ADA recommended refe rence rangeRandom Glucose Reference Range is dependent on time and content of last meal. Glucose of more than 200 mg/dL in a nonstressed, ambulatory subject supports the diagnosis of Diabetes Mellitus. Serum or plasma non-glucuron idated bilirubin measurement (mass/volume)Ordered By: Roberto Whittaker on 09-28-2021 Bilirubin.indirect [Mass/Vol] TNP [facility] Comment on above: Test not performed Serum or plasma potassium me asurement (moles/volume)Ordered By: Roberto Whittaker on 09-28-2021 Potassium [Moles/Vol] 4.4 mmol/L 3.5-5.1 [facility] Serum or plasma sodium measu rement (moles/volume)Ordered By: Roberto Whittaker on 09-28-2021 Sodium [Moles/Vol] 140 mmol/L 136-146 [facility] Serum or plasma total biliru bin measurement (mass/volume)Ordered By: Roberto Whittaker on 09-28-2021 Bilirubin [Mass/Vol] 0.4 mg/dL 0.3-1.2 [facility] Serum or plasma total carbon dioxide measurement (moles/volume)Ordered By: Roberto Whittaker on 09-28-2021 CO2 [Moles/Vol] 28.1 mmol/L 22.0-30.0 [facility] Serum or plasma urea nitroge n measurement (mass/volume)Ordered By: Roberto Whittaker on 09-28-2021 Urea nitrogen [Mass/Vol] 5 mg/dL 9-23 [facility] Troponin I.cardiac [Mass/vol ume] in Serum or Plasma by High sensitivity methodOrdered By: Roberto Whittaker on 09-28-2021 Troponin I.cardiac High sensitivity method [Mass/Vol] < 3 pg/mL 0-15 [facility] Albumin [Mass/volume] in Ser um or PlasmaOrdered By: Luz Fiore on 09-09-2021 Albumin [Mass/Vol] 4.0 g/dL 3.2-5.5 [facility] Amphetamine Screen Ql (U)Ord ered By: Luz Fiore on 09-09-2021 Amphetamines Ql (U) Negative Negative [facility] Automated erythrocytes count in urine sediment (number/area)Ordered By: Luz Fiore on 09-09-2021 RBC Auto (Urine sed) [#/Area] 50-100 [HPF] [facility] Automated leukocytes count i n urine sediment (number/area)Ordered By: Luz Fiore on 09-09-2021 WBC Auto (Urine sed) [#/Area] 20-49 [HPF] [facility] Barbiturates [Presence] in U rineOrdered By: Luz Fiore on 09-09-2021 Barbiturates Ql (U) Negative Negative [facility] Basophils Auto (Bld) [#/Vol] Ordered By: Luz Fiore on 09-09-2021 Basophils (Bld) [#/Vol] 0.0 10*3/uL 0.0-0.2 [facility] Basophils/100 WBC Auto (Bld) Ordered By: Luz Fiore on 09-09-2021 Basophils/100 WBC (Bld) 0.5 % [facility] Benzodiazepines [Presence] i n UrineOrdered By: Luz Fiore on 09-09-2021 Benzodiazepines Ql (U) Negative Negative [facility] Bilirubin Test strip Ql (U)O rdered By: Luz Fiore on 09-09-2021 Bilirubin Ql (U) Negative Negative [facility] Blood hemoglobin measurement (mass/volume)Ordered By: Luz Fiore on 09-09-2021 Hemoglobin (Bld) [Mass/Vol] 14.1 g/dL 11.8-15.4 [facility] Blood leukocytes automated c ount (number/volume)Ordered By: Luz Fiore on 09-09-2021 WBC (Bld) [#/Vol] 8.3 10*3/uL 4.5-11.0 [facility] Cannabinoids [Presence] in U rine by Screen methodOrdered By: Luz Fiore on 09-09-2021 Cannabinoids Screen Ql (U) Positive Negative [facility] Comment on above: These are unconfirme d results and should not be used for legal purposes. Drug Cut-Off Concentration: AMPH 1000 ng/mL DOMINIQUE 200 ng/mL BRICE 200 ng/mL COCM 300 ng/mL OP 300 ng/mL PCP 25 ng/mL THC 20 ng/mL Color Auto (U)Ordered By: Giovanni Fiore on 09-09-2021 Color (U) Yellow Yellow [facility] Creatinine and Glomerular fi ltration rate.predicted panel (S/P/Bld)Ordered By: Luz Fiore on 09-09-2021 Creatinine [Mass/Vol] 0.76 mg/dL 0.44-1.03 [facility] Eosinophils Auto (Bld) [#/Vo l]Ordered By: Luz Fiore on 09-09-2021 Eosinophils (Bld) [#/Vol] 0.1 10*3/uL 0.0-0.45 [facility] Eosinophils/100 WBC Auto (Bl d)Ordered By: Luz Fiore on 09-09-2021 Eosinophils/100 WBC (Bld) 1.8 % [facility] Erythrocyte distribution wid th Auto (RBC) [Ratio]Ordered By: Luz Fiore on 09-09-2021 Erythrocyte distribution width (RBC) [Ratio] 13.1 % 11.9-15.3 [facility] Estimated glomerular filtrat ion rate (GFR) non- AmericanOrdered By: Luz Fiore on 09-09-2021 GFR/1.73 sq M.predicted among non-blacks MDRD (S/P/Bld) [Vol rate/Area] > 60 mL/Min [facility] Globulin Calc (S) [Mass/Vol] Ordered By: Luz Fiore on 09-09-2021 Globulin (S) [Mass/Vol] 3.0 g/dL [facility] Glucose Glucometer (BldC) [M ass/Vol]Ordered By: Luz Fiore on 09-09-2021 Glucose [Mass/Vol] 106 mg/dL [facility] Comment on above: Random Glucose Refer ence Range is dependent on time and content of last meal. Glucose of more than 200 mg/dL in a nonstressed, ambulatory subject supports the diagnosis of Diabetes Mellitus. Hematocrit Auto (Bld) [Volum e fraction]Ordered By: Luz Fiore on 09-09-2021 Hematocrit (Bld) [Volume fraction] 40.9 % 34.0-46.4 [facility] Ketones Auto test strip (U) [Mass/Vol]Ordered By: Luz Fiore on 09-09-2021 Ketones (U) [Mass/Vol] Negative Negative [facility] Laboratory - Chemistry and C hemistry - challengeOrdered By: Luz Fiore on 09-09-2021 Magnesium [Mass/Vol] 2.0 mg/dL 1.6-2.6 [facility] Laboratory - CoagulationOrde red By: Luz Fiore on 09-09-2021 PT Coag (PPP) [Time] 12.4 s 9.0-12.9 [facility] - Drug toxicology Ordered By: Luz Fiore on 09-09-2021 Opiates Ql (U) Negative Negative [facility] - Hematology and Cell countsOrdered By: Luz Fiore on 09-09-2021 Nucleated RBC/100 WBC (Bld) [Ratio] 0.1 % 0-0.5 [facility] - UrinalysisOrder ed By: Luz Fiore on 09-09-2021 Hyaline casts LM Ql (Urine sed) 0-8 [LPF] [facility] Lymphocytes Auto (Bld) [#/Vo l]Ordered By: Luz Fiore on 09-09-2021 Lymphocytes (Bld) [#/Vol] 3.2 10*3/uL 1.00-4.8 [facility] Lymphocytes/100 WBC Auto (Bl d)Ordered By: Luz Fiore on 09-09-2021 Lymphocytes/100 WBC (Bld) 38.6 % [facility] MCH Auto (RBC) [Entitic mass ]Ordered By: Luz Fiore on 09-09-2021 MCH (RBC) [Entitic mass] 30.6 pg 24.7-34.3 [facility] MCHC Auto (RBC) [Mass/Vol]Or dered By: Luz Fiore on 09-09-2021 MCHC (RBC) [Mass/Vol] 34.5 g/dL 32.0-35.0 [facility] MCV Auto (RBC) [Entitic vol] Ordered By: Luz Fiore on 09-09-2021 MCV (RBC) [Entitic vol] 88.6 fL 80-100 [facility] Monocytes Auto (Bld) [#/Vol] Ordered By: Luz Fiore on 09-09-2021 Monocytes (Bld) [#/Vol] 0.5 10*3/uL 0.0-0.8 [facility] Monocytes/100 WBC Auto (Bld) Ordered By: Luz Fiore on 09-09-2021 Monocytes/100 WBC (Bld) 6.3 % [facility] Neutrophils Auto (Bld) [#/Vo l]Ordered By: Luz Fiore on 09-09-2021 Neutrophils (Bld) [#/Vol] 4.4 10*3/uL 1.8-7.7 [facility] Neutrophils/100 WBC Auto (Bl d)Ordered By: Luz Fiore on 09-09-2021 Neutrophils/100 WBC (Bld) 52.8 % [facility] Nitrite Test strip Ql (U)Ord ered By: Luz Fiore on 09-09-2021 Nitrite Ql (U) Negative Negative [facility] No Panel InformationOrdered By: Luz Fiore on 09-09-2021 Estimated GFR () > 60 mL/Min [facility] Comment on above: GFR estimated refere nce range: According to KDOQI guidelines, <60 ml/min/1.73m2 is sufficient to diagnose a patient with chronic kidney disease. Pharmacy Creatinine Clearance (Chem 83.88 [facility] Phencyclidine Screen Ql (U)O rdered By: Luz Fiore on 09-09-2021 Phencyclidine Ql (U) Negative Negative [facility] Platelet mean volume Auto (B ld) [Entitic vol]Ordered By: Luz Fiore on 09-09-2021 Platelet mean volume (Bld) [Entitic vol] 8.5 fL 6.3-10.7 [facility] Platelet poor plasma interna tional normalized ratio (INR) by coagulation assay (relatOrdered By: Luz Fiore on 09-09-2021 INR Coag (PPP) [Relative time] 1.1 {INR} [facility] Comment on above: INR Therapeutic Rang e [...] 09-09-2021 Platelets (Bld) [#/Vol] 249 10*3/uL 150-450 [facility] Protein Auto test strip (U) [Mass/Vol]Ordered By: Luz Fiore on 09-09-2021 Protein (U) [Mass/Vol] 30 mg/dL Negative [facility] Protein [Mass/volume] in Ser um or PlasmaOrdered By: Luz Fiore on 09-09-2021 Protein [Mass/Vol] 7.0 g/dL 6.1-7.9 [facility] RBC Auto (Bld) [#/Vol]Ordere d By: Luz Fiore on 09-09-2021 RBC (Bld) [#/Vol] 4.62 10*6/uL 3.60-5.00 [facility] Serum or plasma alanine white otransferase measurement without P-5'-P (enzymatic activiOrdered By: Luz Fiore on 09-09-2021 ALT No additional P-5'-P [Catalytic activity/Vol] 11 U/L 10-60 [facility] Serum or plasma albumin/glob ulin mass ratioOrdered By: Luz Fiore on 09-09-2021 Albumin/Globulin [Mass ratio] 1.3 {ratio} [facility] Serum or plasma alkaline ignacio sphatase measurement (enzymatic activity/volume)Ordered By: Luz Fiore on 09-09-2021 ALP [Catalytic activity/Vol] 45 U/L 32-92 [facility] Serum or plasma aspartate am inotransferase measurement (enzymatic activity/volume)Ordered By: Luz Fiore on 09-09-2021 AST [Catalytic activity/Vol] 24 U/L 10-42 [facility] Serum or plasma calcium randi urement (mass/volume)Ordered By: Luz Fiore on 09-09-2021 Calcium [Mass/Vol] 9.2 mg/dL 8.2-10.2 [facility] Serum or plasma chloride melonie surement (moles/volume)Ordered By: Luz Fiore on 09-09-2021 Chloride [Moles/Vol] 103 mmol/L 95-114 [facility] Serum or plasma glucose randi urement (mass/volume)Ordered By: Luz Fiore on 09-09-2021 Glucose [Mass/Vol] 85 mg/dL 70-100 [facility] Comment on above: ADA recommended refe rence rangeRandom Glucose Reference Range is dependent on time and content of last meal. Glucose of more than 200 mg/dL in a nonstressed, ambulatory subject supports the diagnosis of Diabetes Mellitus. Serum or plasma potassium me asurement (moles/volume)Ordered By: Luz Fiore on 09-09-2021 Potassium [Moles/Vol] 4.2 mmol/L 3.5-5.1 [facility] Serum or plasma sodium measu rement (moles/volume)Ordered By: Luz Fiore on 09-09-2021 Sodium [Moles/Vol] 138 mmol/L 136-146 [facility] Serum or plasma total biliru bin measurement (mass/volume)Ordered By: Luz Fiore on 09-09-2021 Bilirubin [Mass/Vol] 0.3 mg/dL 0.3-1.2 [facility] Serum or plasma total carbon dioxide measurement (moles/volume)Ordered By: Luz Fiore on 09-09-2021 CO2 [Moles/Vol] 26.3 mmol/L 22.0-30.0 [facility] Serum or plasma urea nitroge n measurement (mass/volume)Ordered By: Luz Fiore on 09-09-2021 Urea nitrogen [Mass/Vol] 8 mg/dL 9-23 [facility] Specific gravity Auto test s trip (U) [Rel density]Ordered By: Luz Fiore on 09-09-2021 Specific gravity (U) [Rel density] 1.017 1.001-1.030 [facility] Squamous epithelial cells de tection in urine sediment by light microscopyOrdered By: Luz Fiore on 09-09-2021 Epithelial cells.squamous LM Ql (Urine sed) 1-2 [HPF] [facility] Urine bacteria detection by automated methodOrdered By: Luz Fiore on 09-09-2021 Bacteria Auto Ql (U) None seen None Seen [facility] Urine clarity by refractomet ry automatedOrdered By: Luz Fiore on 09-09-2021 Clarity Refractometry automated (U) Cloudy Clear [facility] Urine cocaine detectionOrder ed By: Luz Fiore on 09-09-2021 Cocaine Ql (U) Negative Negative [facility] Urine culture routineOrdered By: Luz Fiore on 09-09-2021 Bacteria identified Cx Nom (U) 2 Days [facility] Urine glucose measurement by automated test strip (mass/volume)Ordered By: Luz Fiore on 09-09-2021 Glucose Auto test strip (U) [Mass/Vol] Normal mg/dL Normal [facility] Urine hemoglobin detection b y automated test stripOrdered By: Luz Fiore on 09-09-2021 Hemoglobin Auto test strip Ql (U) 2+ Negative [facility] Urine leukocyte esterase det ection by automated test stripOrdered By: Luz Fiore on 09-09-2021 Leukocyte esterase Auto test strip Ql (U) 3+ Negative [facility] Urobilinogen Auto test strip (U) [Mass/Vol]Ordered By: Luz Fiore on 09-09-2021 Urobilinogen (U) [Mass/Vol] Normal mg/dL Normal [facility] pH Auto test strip (U)Ordere d By: Luz Fiore on 09-09-2021 pH (U) 7.0 [pH] 5.0-9.0 [facility] CNPNon 08-17-2021 AMELIAN Telephone (LINDY) ----- BHAVNA KOVACS ([id number]) 2 F Date Time Provider Department 08/17/21 CLARITZA BLAND During your visit today, we recorded the following information about you: Jodie Yo [facility] 08/17/2021 2:24 PM Signed Patient has been identified by name and date of : Yes Pending Prescriptions Disp Refills TESTOSTERONE CYPIONATE 200 MG/ML INTRAMUSCULAR OIL 2 mL 5 Sig: INJECT 100 MG (0.5 ml) SQ Q2wks SHAWN Class: C-III PRESTON: No RX INSTRUCTIONS: Patient aware RX will be sent to pharmacy. No need to notify patient. Jodie Yo [facility] Date of last visit: 07/03/2020-Baldo Date of next endo appointment: NA 30 day supply. of medication requested [facility]/20/2021 11:58 AM Signed PA needed for testosterone via onbase Mel Marsh RN 08/20/2021 3:56 PM Addendum Contacted Nguyen at [phone] to verify insurance information entered in PA tat was started on CoverMyMeds. This information was incorrect; pharmacist was able to fill the prescription with a $23.50 co-pay. Per Pharmacy, the insurance information in the patient's chart is incorrect. [employer] message sent to patient with scheduling information [...] mg/mL injectionINJECT 100 MG (0.5 ml) SQ [id number]: 2 mLRfl: 1 Prescriptions as of 08/20/2021 [...] Status:Closed by TRINA QUINN on 08/20/21 Normal [facility] Albumin [Mass/volume] in Ser um or PlasmaOrdered By: Tommy Bowen on 08-12-2021 Albumin [Mass/Vol] 4.0 g/dL 3.2-5.5 [facility] Automated erythrocytes count in urine sediment (number/area)Ordered By: Tommy Bowen on 08-12-2021 RBC Auto (Urine sed) [#/Area] Innumerable [HPF] [facility] Automated leukocytes count i n urine sediment (number/area)Ordered By: Tommy Bowen on 08-12-2021 WBC Auto (Urine sed) [#/Area] 5-9 [HPF] [facility] Basophils Auto (Bld) [#/Vol] Ordered By: Tommy Bowen on 08-12-2021 Basophils (Bld) [#/Vol] 0.0 10*3/uL 0.0-0.2 [facility] Basophils/100 WBC Auto (Bld) Ordered By: Tommy Bowen on 08-12-2021 Basophils/100 WBC (Bld) 0.3 % [facility] Bilirubin Test strip Ql (U)O rdered By: Tommy Bowen on 08-12-2021 Bilirubin Ql (U) Negative Negative [facility] Blood hemoglobin measurement (mass/volume)Ordered By: Tommy Bowen on 08-12-2021 Hemoglobin (Bld) [Mass/Vol] 13.9 g/dL 11.8-15.4 [facility] Blood leukocytes automated c ount (number/volume)Ordered By: Tommy Bowen on 08-12-2021 WBC (Bld) [#/Vol] 8.6 10*3/uL 4.5-11.0 [facility] Color Auto (U)Ordered By: Hermes Bowen on 08-12-2021 Color (U) Yellow Yellow [facility] Creatinine and Glomerular fi ltration rate.predicted panel (S/P/Bld)Ordered By: Tommy Bowen on 08-12-2021 Creatinine [Mass/Vol] 0.70 mg/dL 0.44-1.03 [facility] Eosinophils Auto (Bld) [#/Vo l]Ordered By: Tommy Bowen on 08-12-2021 Eosinophils (Bld) [#/Vol] 0.0 10*3/uL 0.0-0.45 [facility] Eosinophils/100 WBC Auto (Bl d)Ordered By: Tommy Bowen on 08-12-2021 Eosinophils/100 WBC (Bld) 0.3 % [facility] Erythrocyte distribution wid th Auto (RBC) [Ratio]Ordered By: Tommy Bowen on 08-12-2021 Erythrocyte distribution width (RBC) [Ratio] 12.7 % 11.9-15.3 [facility] Estimated glomerular filtrat ion rate (GFR) non- AmericanOrdered By: Tommy Bowen on 08-12-2021 GFR/1.73 sq M.predicted among non-blacks MDRD (S/P/Bld) [Vol rate/Area] > 60 mL/Min [facility] Globulin Calc (S) [Mass/Vol] Ordered By: Tommy Bowen on 08-12-2021 Globulin (S) [Mass/Vol] 3.6 g/dL [facility] Glucose Glucometer (BldC) [M ass/Vol]Ordered By: Tommy Bowen on 08-12-2021 Glucose [Mass/Vol] 102 mg/dL [facility] Comment on above: Random Glucose Refer ence Range is dependent on time and content of last meal. Glucose of more than 200 mg/dL in a nonstressed, ambulatory subject supports the diagnosis of Diabetes Mellitus. Hematocrit Auto (Bld) [Volum e fraction]Ordered By: Tommy Bowen on 08-12-2021 Hematocrit (Bld) [Volume fraction] 40.4 % 34.0-46.4 [facility] Ketones Auto test strip (U) [Mass/Vol]Ordered By: Tommy Bowen on 08-12-2021 Ketones (U) [Mass/Vol] Trace Negative [facility] Laboratory - Hematology and Cell countsOrdered By: Tommy Bowen on 08-12-2021 Nucleated RBC/100 WBC (Bld) [Ratio] 0.1 % 0-0.5 [facility] - UrinalysisOrder ed By: Tommy Bowen on 08-12-2021 Hyaline casts LM Ql (Urine sed) 0-8 [LPF] [facility] Lymphocytes Auto (Bld) [#/Vo l]Ordered By: Tommy Bowen on 08-12-2021 Lymphocytes (Bld) [#/Vol] 2.0 10*3/uL 1.00-4.8 [facility] Lymphocytes/100 WBC Auto (Bl d)Ordered By: Tommy Bowen on 08-12-2021 Lymphocytes/100 WBC (Bld) 23.2 % [facility] MCH Auto (RBC) [Entitic mass ]Ordered By: Tommy Bowen on 08-12-2021 MCH (RBC) [Entitic mass] 30.2 pg 24.7-34.3 [facility] MCHC Auto (RBC) [Mass/Vol]Or dered By: Tommy Bowen on 08-12-2021 MCHC (RBC) [Mass/Vol] 34.5 g/dL 32.0-35.0 [facility] MCV Auto (RBC) [Entitic vol] Ordered By: Tommy Bowen on 08-12-2021 MCV (RBC) [Entitic vol] 87.6 fL 80-100 [facility] Monocytes Auto (Bld) [#/Vol] Ordered By: Tommy Bowen on 08-12-2021 Monocytes (Bld) [#/Vol] 0.6 10*3/uL 0.0-0.8 [facility] Monocytes/100 WBC Auto (Bld) Ordered By: Tommy Bowen on 08-12-2021 Monocytes/100 WBC (Bld) 6.7 % [facility] Neutrophils Auto (Bld) [#/Vo l]Ordered By: Tommy Bowen on 08-12-2021 Neutrophils (Bld) [#/Vol] 6.0 10*3/uL 1.8-7.7 [facility] Neutrophils/100 WBC Auto (Bl d)Ordered By: Tommy Bowen on 08-12-2021 Neutrophils/100 WBC (Bld) 69.5 % [facility] Nitrite Test strip Ql (U)Ord ered By: Tommy Bowen on 08-12-2021 Nitrite Ql (U) Negative Negative [facility] No Panel InformationOrdered By: Tommy Bowen on 08-12-2021 Estimated GFR () > 60 mL/Min [facility] Comment on above: GFR estimated refere nce range: According to KDOQI guidelines, <60 ml/min/1.73m2 is sufficient to diagnose a patient with chronic kidney disease. Pharmacy Creatinine Clearance (Chem 143.12 [facility] Platelet mean volume Auto (B ld) [Entitic vol]Ordered By: Tommy Bowen on 08-12-2021 Platelet mean volume (Bld) [Entitic vol] 7.9 fL 6.3-10.7 [facility] Platelets Auto (Bld) [#/Vol] Ordered By: Tommy Bowen on 08-12-2021 Platelets (Bld) [#/Vol] 315 10*3/uL 150-450 [facility] Protein Auto test strip (U) [Mass/Vol]Ordered By: Tommy Bowen on 08-12-2021 Protein (U) [Mass/Vol] 30 mg/dL Negative [facility] Protein [Mass/volume] in Ser um or PlasmaOrdered By: Tommy Bowen on 08-12-2021 Protein [Mass/Vol] 7.6 g/dL 6.1-7.9 [facility] RBC Auto (Bld) [#/Vol]Ordere d By: Tommy Bowen on 08-12-2021 RBC (Bld) [#/Vol] 4.61 10*6/uL 3.60-5.00 [facility] Serum or plasma alanine white otransferase measurement without P-5'-P (enzymatic activiOrdered By: Tommy Bowen on 08-12-2021 ALT No additional P-5'-P [Catalytic activity/Vol] 11 U/L 10-60 [facility] Serum or plasma albumin/glob ulin mass ratioOrdered By: Tommy Bowen on 08-12-2021 Albumin/Globulin [Mass ratio] 1.1 {ratio} [facility] Serum or plasma alkaline ignacio sphatase measurement (enzymatic activity/volume)Ordered By: Tommy Bowen on 08-12-2021 ALP [Catalytic activity/Vol] 58 U/L 32-92 [facility] Serum or plasma aspartate am inotransferase measurement (enzymatic activity/volume)Ordered By: Tommy Bowen on 08-12-2021 AST [Catalytic activity/Vol] 16 U/L 10-42 [facility] Serum or plasma calcium randi urement (mass/volume)Ordered By: Tommy Bowen on 08-12-2021 Calcium [Mass/Vol] 9.1 mg/dL 8.2-10.2 [facility] Serum or plasma chloride melonie surement (moles/volume)Ordered By: Tommy Bowen on 08-12-2021 Chloride [Moles/Vol] 102 mmol/L 95-114 [facility] Serum or plasma glucose randi urement (mass/volume)Ordered By: Tommy Bowen on 08-12-2021 Glucose [Mass/Vol] 86 mg/dL 70-100 [facility] Comment on above: ADA recommended refe rence rangeRandom Glucose Reference Range is dependent on time and content of last meal. Glucose of more than 200 mg/dL in a nonstressed, ambulatory subject supports the diagnosis of Diabetes Mellitus. Serum or plasma potassium me asurement (moles/volume)Ordered By: Tommy Bowen on 08-12-2021 Potassium [Moles/Vol] 3.6 mmol/L 3.5-5.1 [facility] Serum or plasma sodium measu rement (moles/volume)Ordered By: Tommy Bowen on 08-12-2021 Sodium [Moles/Vol] 136 mmol/L 136-146 [facility] Serum or plasma total biliru bin measurement (mass/volume)Ordered By: Tommy Bowen on 08-12-2021 Bilirubin [Mass/Vol] 0.5 mg/dL 0.3-1.2 [facility] Serum or plasma total carbon dioxide measurement (moles/volume)Ordered By: Tommy Bowen on 08-12-2021 CO2 [Moles/Vol] 23.8 mmol/L 22.0-30.0 [facility] Serum or plasma urea nitroge n measurement (mass/volume)Ordered By: Tommy Bowen on 08-12-2021 Urea nitrogen [Mass/Vol] 6 mg/dL 9-23 [facility] Specific gravity Auto test s trip (U) [Rel density]Ordered By: Tommy Bowen on 08-12-2021 Specific gravity (U) [Rel density] 1.018 1.001-1.030 [facility] Squamous epithelial cells de tection in urine sediment by light microscopyOrdered By: Tommy Bowen on 08-12-2021 Epithelial cells.squamous LM Ql (Urine sed) 3-4 [HPF] [facility] Urine bacteria detection by automated methodOrdered By: Tommy Bowen on 08-12-2021 Bacteria Auto Ql (U) None seen None Seen [facility] Urine clarity by refractomet ry automatedOrdered By: Tommy Bowen on 08-12-2021 Clarity Refractometry automated (U) Clear Clear [facility] Urine culture routineOrdered By: Tommy Bowen on 08-12-2021 Bacteria identified Cx Nom (U) No Growth 2 Days [facility] Urine glucose measurement by automated test strip (mass/volume)Ordered By: Tommy Bowen on 08-12-2021 Glucose Auto test strip (U) [Mass/Vol] Normal mg/dL Normal [facility] Urine hemoglobin detection b y automated test stripOrdered By: Tommy Bowen on 08-12-2021 Hemoglobin Auto test strip Ql (U) 3+ Negative [facility] Urine leukocyte esterase det ection by automated test stripOrdered By: Tommy Bowen on 08-12-2021 Leukocyte esterase Auto test strip Ql (U) 1+ Negative [facility] Urobilinogen Auto test strip (U) [Mass/Vol]Ordered By: Tommy Bowen on 08-12-2021 Urobilinogen (U) [Mass/Vol] Normal mg/dL Normal [facility] pH Auto test strip (U)Ordere d By: Tommy Bowen on 08-12-2021 pH (U) 8.0 [pH] 5.0-9.0 [facility] Albumin [Mass/volume] in Ser um or PlasmaOrdered By: Tommy Bowen on 08-07-2021 Albumin [Mass/Vol] 4.4 g/dL 3.2-5.5 [facility] Automated erythrocytes count in urine sediment (number/area)Ordered By: Tommy Bowen on 08-07-2021 RBC Auto (Urine sed) [#/Area] 50-100 [HPF] [facility] Automated leukocytes count i n urine sediment (number/area)Ordered By: Tommy Bowen on 08-07-2021 WBC Auto (Urine sed) [#/Area] 10-19 [HPF] [facility] Basophils Auto (Bld) [#/Vol] Ordered By: Tommy Bowen on 08-07-2021 Basophils (Bld) [#/Vol] 0.0 10*3/uL 0.0-0.2 [facility] Basophils/100 WBC Auto (Bld) Ordered By: Tommy Bowen on 08-07-2021 Basophils/100 WBC (Bld) 0.4 % [facility] Bilirubin Test strip Ql (U)O rdered By: Tommy Bowen on 08-07-2021 Bilirubin Ql (U) Negative Negative [facility] Blood hemoglobin measurement (mass/volume)Ordered By: Tommy Bowen on 08-07-2021 Hemoglobin (Bld) [Mass/Vol] 14.1 g/dL 11.8-15.4 [facility] Blood leukocytes automated c ount (number/volume)Ordered By: Tommy Bowen on 08-07-2021 WBC (Bld) [#/Vol] 10.0 10*3/uL 4.5-11.0 [facility] Color Auto (U)Ordered By: Hemres red Jessi on 08-07-2021 Color (U) Yellow Yellow [facility] Creatinine and Glomerular fi ltration rate.predicted panel (S/P/Bld)Ordered By: Tommy Bowen on 08-07-2021 Creatinine [Mass/Vol] 0.75 mg/dL 0.44-1.03 [facility] Eosinophils Auto (Bld) [#/Vo l]Ordered By: Tommy Bowen on 08-07-2021 Eosinophils (Bld) [#/Vol] 0.0 10*3/uL 0.0-0.45 [facility] Eosinophils/100 WBC Auto (Bl d)Ordered By: Tommy Bowen on 08-07-2021 Eosinophils/100 WBC (Bld) 0.4 % [facility] Erythrocyte distribution wid th Auto (RBC) [Ratio]Ordered By: Tommy Bowen on 08-07-2021 Erythrocyte distribution width (RBC) [Ratio] 12.7 % 11.9-15.3 [facility] Estimated glomerular filtrat ion rate (GFR) non- AmericanOrdered By: Tommy Bowen on 08-07-2021 GFR/1.73 sq M.predicted among non-blacks MDRD (S/P/Bld) [Vol rate/Area] > 60 mL/Min [facility] Globulin Calc (S) [Mass/Vol] Ordered By: Tommy Bowen on 08-07-2021 Globulin (S) [Mass/Vol] 3.6 g/dL [facility] Hematocrit Auto (Bld) [Volum e fraction]Ordered By: Tommy Bowen on 08-07-2021 Hematocrit (Bld) [Volume fraction] 41.5 % 34.0-46.4 [facility] Ketones Auto test strip (U) [Mass/Vol]Ordered By: Tommy Bowen on 08-07-2021 Ketones (U) [Mass/Vol] Trace Negative [facility] - Hematology and Cell countsOrdered By: Tommy Bowen on 08-07-2021 Nucleated RBC/100 WBC (Bld) [Ratio] 0.0 % 0-0.5 [facility] - UrinalysisOrder ed By: Tommy Bowen on 08-07-2021 Hyaline casts LM Ql (Urine sed) 0-8 [LPF] [facility] Lymphocytes Auto (Bld) [#/Vo l]Ordered By: Tommy Bowen on 08-07-2021 Lymphocytes (Bld) [#/Vol] 2.5 10*3/uL 1.00-4.8 [facility] Lymphocytes/100 WBC Auto (Bl d)Ordered By: Tommy Bowen on 08-07-2021 Lymphocytes/100 WBC (Bld) 25.4 % [facility] MCH Auto (RBC) [Entitic mass ]Ordered By: Tommy Bowen on 08-07-2021 MCH (RBC) [Entitic mass] 29.8 pg 24.7-34.3 [facility] MCHC Auto (RBC) [Mass/Vol]Or dered By: Tommy Bowen on 08-07-2021 MCHC (RBC) [Mass/Vol] 33.9 g/dL 32.0-35.0 [facility] MCV Auto (RBC) [Entitic vol] Ordered By: Tommy Bowen on 08-07-2021 MCV (RBC) [Entitic vol] 87.7 fL 80-100 [facility] Monocytes Auto (Bld) [#/Vol] Ordered By: Tommy Bowen on 08-07-2021 Monocytes (Bld) [#/Vol] 0.8 10*3/uL 0.0-0.8 [facility] Monocytes/100 WBC Auto (Bld) Ordered By: Tommy Bowen on 08-07-2021 Monocytes/100 WBC (Bld) 7.8 % [facility] Neutrophils Auto (Bld) [#/Vo l]Ordered By: Tommy Bowen on 08-07-2021 Neutrophils (Bld) [#/Vol] 6.6 10*3/uL 1.8-7.7 [facility] Neutrophils/100 WBC Auto (Bl d)Ordered By: Tommy Bowen on 08-07-2021 Neutrophils/100 WBC (Bld) 66.0 % [facility] Nitrite Test strip Ql (U)Ord ered By: Tommy Bowen on 08-07-2021 Nitrite Ql (U) Negative Negative [facility] No Panel InformationOrdered By: Tommy Bowen on 08-07-2021 Estimated GFR () > 60 mL/Min [facility] Comment on above: GFR estimated refere nce range: According to KDOQI guidelines, <60 ml/min/1.73m2 is sufficient to diagnose a patient with chronic kidney disease. Pharmacy Creatinine Clearance (Chem N/A [facility] Platelet mean volume Auto (B ld) [Entitic vol]Ordered By: Tommy Bowen on 08-07-2021 Platelet mean volume (Bld) [Entitic vol] 7.5 fL 6.3-10.7 [facility] Platelets Auto (Bld) [#/Vol] Ordered By: Tommy Bowen on 08-07-2021 Platelets (Bld) [#/Vol] 325 10*3/uL 150-450 [facility] Protein Auto test strip (U) [Mass/Vol]Ordered By: Tommy Bowen on 08-07-2021 Protein (U) [Mass/Vol] 30 mg/dL Negative [facility] Protein [Mass/volume] in Ser um or PlasmaOrdered By: Tommy Bowen on 08-07-2021 Protein [Mass/Vol] 8.0 g/dL 6.1-7.9 [facility] RBC Auto (Bld) [#/Vol]Ordere d By: Tommy Bowen on 08-07-2021 RBC (Bld) [#/Vol] 4.73 10*6/uL 3.60-5.00 [facility] Serum or plasma alanine white otransferase measurement without P-5'-P (enzymatic activiOrdered By: Tommy Bowen on 08-07-2021 ALT No additional P-5'-P [Catalytic activity/Vol] 9 U/L 10-60 [facility] Serum or plasma albumin/glob ulin mass ratioOrdered By: Tommy Bowen on 08-07-2021 Albumin/Globulin [Mass ratio] 1.2 {ratio} [facility] Serum or plasma alkaline ignacio sphatase measurement (enzymatic activity/volume)Ordered By: Tommy Bowen on 08-07-2021 ALP [Catalytic activity/Vol] 56 U/L 32-92 [facility] Serum or plasma aspartate am inotransferase measurement (enzymatic activity/volume)Ordered By: Tommy Bowen on 08-07-2021 AST [Catalytic activity/Vol] 19 U/L 10-42 [facility] Serum or plasma calcium randi urement (mass/volume)Ordered By: Tommy Bowen on 08-07-2021 Calcium [Mass/Vol] 9.3 mg/dL 8.2-10.2 [facility] Serum or plasma chloride melonie surement (moles/volume)Ordered By: Tommy Bowen on 08-07-2021 Chloride [Moles/Vol] 102 mmol/L 95-114 [facility] Serum or plasma glucose randi urement (mass/volume)Ordered By: Tommy Bowen on 08-07-2021 Glucose [Mass/Vol] 88 mg/dL 70-100 [facility] Comment on above: ADA recommended refe rence rangeRandom Glucose Reference Range is dependent on time and content of last meal. Glucose of more than 200 mg/dL in a nonstressed, ambulatory subject supports the diagnosis of Diabetes Mellitus. Serum or plasma potassium me asurement (moles/volume)Ordered By: Tommy Bowen on 08-07-2021 Potassium [Moles/Vol] 3.7 mmol/L 3.5-5.1 [facility] Serum or plasma sodium measu rement (moles/volume)Ordered By: Tommy Bowen on 08-07-2021 Sodium [Moles/Vol] 135 mmol/L 136-146 [facility] Serum or plasma total biliru bin measurement (mass/volume)Ordered By: Tommy Bowen on 08-07-2021 Bilirubin [Mass/Vol] 0.6 mg/dL 0.3-1.2 [facility] Serum or plasma total carbon dioxide measurement (moles/volume)Ordered By: Tommy Bowen on 08-07-2021 CO2 [Moles/Vol] 21.2 mmol/L 22.0-30.0 [facility] Serum or plasma urea nitroge n measurement (mass/volume)Ordered By: Tommy Bowen on 08-07-2021 Urea nitrogen [Mass/Vol] 10 mg/dL 9-23 [facility] Specific gravity Auto test s trip (U) [Rel density]Ordered By: Tommy Bowen on 08-07-2021 Specific gravity (U) [Rel density] 1.018 1.001-1.030 [facility] Squamous epithelial cells de tection in urine sediment by light microscopyOrdered By: Tommy Bowen on 08-07-2021 Epithelial cells.squamous LM Ql (Urine sed) 3-4 [HPF] [facility] Urine bacteria detection by automated methodOrdered By: Tommy Bowen on 08-07-2021 Bacteria Auto Ql (U) None seen None Seen [facility] Urine clarity by refractomet ry automatedOrdered By: Tommy Bowen on 08-07-2021 Clarity Refractometry automated (U) Clear Clear [facility] Urine culture routineOrdered By: Tommy Bowen on 08-07-2021 Bacteria identified Cx Nom (U) No Growth 2 Days [facility] Urine glucose measurement by automated test strip (mass/volume)Ordered By: Tommy Bowen on 08-07-2021 Glucose Auto test strip (U) [Mass/Vol] Normal mg/dL Normal [facility] Urine hemoglobin detection b y automated test stripOrdered By: Tommy Bowen on 08-07-2021 Hemoglobin Auto test strip Ql (U) 2+ Negative [facility] Urine leukocyte esterase det ection by automated test stripOrdered By: Tommy Bowen on 08-07-2021 Leukocyte esterase Auto test strip Ql (U) 2+ Negative [facility] Urobilinogen Auto test strip (U) [Mass/Vol]Ordered By: Tommy Bowen on 08-07-2021 Urobilinogen (U) [Mass/Vol] Normal mg/dL Normal [facility] pH Auto test strip (U)Ordere d By: Tommy Bowen on 08-07-2021 pH (U) 7.0 [pH] 5.0-9.0 [facility] Albumin [Mass/volume] in Ser um or PlasmaOrdered By: Bobby Gallagher on 07-10-2021 Albumin [Mass/Vol] 3.8 g/dL 3.2-5.5 [facility] Automated erythrocytes count in urine sediment (number/area)Ordered By: Bobby Gallagher on 07-10-2021 RBC Auto (Urine sed) [#/Area] Innumerable [HPF] [facility] Automated leukocytes count i n urine sediment (number/area)Ordered By: Bobby Gallagher on 07-10-2021 WBC Auto (Urine sed) [#/Area] 5-9 [HPF] [facility] Basophils Auto (Bld) [#/Vol] Ordered By: Bobby Gallagher on 07-10-2021 Basophils (Bld) [#/Vol] 0.0 10*3/uL 0.0-0.2 [facility] Basophils/100 WBC Auto (Bld) Ordered By: Bobby Gallagher on 07-10-2021 Basophils/100 WBC (Bld) 0.6 % [facility] Bilirubin Test strip Ql (U)O rdered By: Bobby Gallagher on 07-10-2021 Bilirubin Ql (U) Negative Negative [facility] Blood hemoglobin measurement (mass/volume)Ordered By: Bobby Gallagher on 07-10-2021 Hemoglobin (Bld) [Mass/Vol] 13.2 g/dL 11.8-15.4 [facility] Blood leukocytes automated c ount (number/volume)Ordered By: Bobby Gallagher on 07-10-2021 WBC (Bld) [#/Vol] 5.8 10*3/uL 4.5-11.0 [facility] Color Auto (U)Ordered By: Victorino Gallagher on 07-10-2021 Color (U) Red Yellow [facility] Creatinine and Glomerular fi ltration rate.predicted panel (S/P/Bld)Ordered By: Bobby Gallagher on 07-10-2021 Creatinine [Mass/Vol] 0.80 mg/dL 0.44-1.03 [facility] Eosinophils Auto (Bld) [#/Vo l]Ordered By: Bobby Gallagher on 07-10-2021 Eosinophils (Bld) [#/Vol] 0.1 10*3/uL 0.0-0.45 [facility] Eosinophils/100 WBC Auto (Bl d)Ordered By: Bobby Gallagher on 07-10-2021 Eosinophils/100 WBC (Bld) 1.4 % [facility] Erythrocyte distribution wid th Auto (RBC) [Ratio]Ordered By: Bobby Gallagher on 07-10-2021 Erythrocyte distribution width (RBC) [Ratio] 13.0 % 11.9-15.3 [facility] Estimated glomerular filtrat ion rate (GFR) non- AmericanOrdered By: Bobby Gallagher on 07-10-2021 GFR/1.73 sq M.predicted among non-blacks MDRD (S/P/Bld) [Vol rate/Area] > 60 mL/Min [facility] Globulin Calc (S) [Mass/Vol] Ordered By: Bobby Gallagher on 07-10-2021 Globulin (S) [Mass/Vol] 2.7 g/dL [facility] Hematocrit Auto (Bld) [Volum e fraction]Ordered By: Bobby Gallagher on 07-10-2021 Hematocrit (Bld) [Volume fraction] 38.6 % 34.0-46.4 [facility] Ketones Auto test strip (U) [Mass/Vol]Ordered By: Bobby Gallagher on 07-10-2021 Ketones (U) [Mass/Vol] Negative Negative [facility] - Chemistry and C hemistry - challengeOrdered By: Bobby Gallagher on 07-10-2021 Magnesium [Mass/Vol] 2.0 mg/dL 1.6-2.6 [facility] - Hematology and Cell countsOrdered By: Bobby Gallagher on 07-10-2021 Nucleated RBC/100 WBC (Bld) [Ratio] 0.3 % 0-0.5 [facility] - UrinalysisOrder ed By: Bobby Gallagher on 07-10-2021 Hyaline casts LM Ql (Urine sed) 0-8 [LPF] [facility] Lymphocytes Auto (Bld) [#/Vo l]Ordered By: Bobby Gallagher on 07-10-2021 Lymphocytes (Bld) [#/Vol] 2.0 10*3/uL 1.00-4.8 [facility] Lymphocytes/100 WBC Auto (Bl d)Ordered By: Bobby Gallagher on 07-10-2021 Lymphocytes/100 WBC (Bld) 34.4 % [facility] MCH Auto (RBC) [Entitic mass ]Ordered By: Bobby Gallagher on 07-10-2021 MCH (RBC) [Entitic mass] 30.9 pg 24.7-34.3 [facility] MCHC Auto (RBC) [Mass/Vol]Or dered By: Bobby Gallagher on 07-10-2021 MCHC (RBC) [Mass/Vol] 34.2 g/dL 32.0-35.0 [facility] MCV Auto (RBC) [Entitic vol] Ordered By: Bobby Gallagher on 07-10-2021 MCV (RBC) [Entitic vol] 90.3 fL 80-100 [facility] Monocytes Auto (Bld) [#/Vol] Ordered By: Bobby Gallagher on 07-10-2021 Monocytes (Bld) [#/Vol] 0.4 10*3/uL 0.0-0.8 [facility] Monocytes/100 WBC Auto (Bld) Ordered By: Bobby Gallagher on 07-10-2021 Monocytes/100 WBC (Bld) 7.4 % [facility] Neutrophils Auto (Bld) [#/Vo l]Ordered By: Bobby Gallagher on 07-10-2021 Neutrophils (Bld) [#/Vol] 3.3 10*3/uL 1.8-7.7 [facility] Neutrophils/100 WBC Auto (Bl d)Ordered By: Bobby Gallagher on 07-10-2021 Neutrophils/100 WBC (Bld) 56.2 % [facility] Nitrite Test strip Ql (U)Ord ered By: Bobby Gallagher on 07-10-2021 Nitrite Ql (U) Negative Negative [facility] No Panel InformationOrdered By: Bobby Gallagher on 07-10-2021 Estimated GFR () > 60 mL/Min [facility] Comment on above: GFR estimated refere nce range: According to KDOQI guidelines, <60 ml/min/1.73m2 is sufficient to diagnose a patient with chronic kidney disease. Pharmacy Creatinine Clearance (Chem 84.65 [facility] Phosphate [Mass/volume] in S alexis or PlasmaOrdered By: Bobby Gallagher on 07-10-2021 Phosphate [Mass/Vol] 2.6 mg/dL 2.5-4.6 [facility] Platelet mean volume Auto (B ld) [Entitic vol]Ordered By: Bobby Gallagher on 07-10-2021 Platelet mean volume (Bld) [Entitic vol] 8.2 fL 6.3-10.7 [facility] Platelets Auto (Bld) [#/Vol] Ordered By: Bobby Gallagher on 07-10-2021 Platelets (Bld) [#/Vol] 243 10*3/uL 150-450 [facility] Protein Auto test strip (U) [Mass/Vol]Ordered By: Bobby Gallagher on 07-10-2021 Protein (U) [Mass/Vol] Trace mg/dL Negative [facility] Protein [Mass/volume] in Ser um or PlasmaOrdered By: Bobby Gallagher on 07-10-2021 Protein [Mass/Vol] 6.5 g/dL 6.1-7.9 [facility] RBC Auto (Bld) [#/Vol]Ordere d By: Bobby Gallagher on 07-10-2021 RBC (Bld) [#/Vol] 4.27 10*6/uL 3.60-5.00 [facility] Serum or plasma alanine white otransferase measurement without P-5'-P (enzymatic activiOrdered By: Bobby Gallagher on 07-10-2021 ALT No additional P-5'-P [Catalytic activity/Vol] 9 U/L 10-60 [facility] Serum or plasma albumin/glob ulin mass ratioOrdered By: Bobby Gallagher on 07-10-2021 Albumin/Globulin [Mass ratio] 1.4 {ratio} [facility] Serum or plasma alkaline ignacio sphatase measurement (enzymatic activity/volume)Ordered By: Bobby Gallagher on 07-10-2021 ALP [Catalytic activity/Vol] 43 U/L 32-92 [facility] Serum or plasma aspartate am inotransferase measurement (enzymatic activity/volume)Ordered By: Bobby Gallagher on 07-10-2021 AST [Catalytic activity/Vol] 19 U/L 10-42 [facility] Serum or plasma calcium randi urement (mass/volume)Ordered By: Bobby Gallagher on 07-10-2021 Calcium [Mass/Vol] 9.0 mg/dL 8.2-10.2 [facility] Serum or plasma chloride melonie surement (moles/volume)Ordered By: Bobby Gallagher on 07-10-2021 Chloride [Moles/Vol] 103 mmol/L 95-114 [facility] Serum or plasma glucose randi urement (mass/volume)Ordered By: Bobby Gallagher on 07-10-2021 Glucose [Mass/Vol] 96 mg/dL 70-100 [facility] Comment on above: ADA recommended refe rence rangeRandom Glucose Reference Range is dependent on time and content of last meal. Glucose of more than 200 mg/dL in a nonstressed, ambulatory subject supports the diagnosis of Diabetes Mellitus. Serum or plasma potassium me asurement (moles/volume)Ordered By: Bobby Gallagher on 07-10-2021 Potassium [Moles/Vol] 3.4 mmol/L 3.5-5.1 [facility] Serum or plasma sodium measu rement (moles/volume)Ordered By: Bobby Gallagher on 07-10-2021 Sodium [Moles/Vol] 140 mmol/L 136-146 [facility] Serum or plasma total biliru bin measurement (mass/volume)Ordered By: Bobby Gallagher on 07-10-2021 Bilirubin [Mass/Vol] 0.6 mg/dL 0.3-1.2 [facility] Serum or plasma total carbon dioxide measurement (moles/volume)Ordered By: Bobby Gallagher on 07-10-2021 CO2 [Moles/Vol] 25.5 mmol/L 22.0-30.0 [facility] Serum or plasma urea nitroge n measurement (mass/volume)Ordered By: Bobby Gallagher on 07-10-2021 Urea nitrogen [Mass/Vol] 6 mg/dL 9- [facility] Specific gravity Auto test s trip (U) [Rel density]Ordered By: Bobby Gallagher on 07-10-2021 Specific gravity (U) [Rel density] 1.007 1.001-1.030 [facility] Squamous epithelial cells de tection in urine sediment by light microscopyOrdered By: Bobby Gallagher on 07-10-2021 Epithelial cells.squamous LM Ql (Urine sed) 1-2 [HPF] [facility] Urine bacteria detection by automated methodOrdered By: Bobby Gallagher on 07-10-2021 Bacteria Auto Ql (U) 2+ None Seen [facility] Urine clarity by refractomet ry automatedOrdered By: Bobby Gallagher on 07-10-2021 Clarity Refractometry automated (U) Clear Clear [facility] Urine culture routineOrdered By: Bobby Gallagher on 07-10-2021 Bacteria identified Cx Nom (U) Escherichia coli [facility] Urine glucose measurement by automated test strip (mass/volume)Ordered By: Bobby Gallagher on 07-10-2021 Glucose Auto test strip (U) [Mass/Vol] Normal mg/dL Normal [facility] Urine hemoglobin detection b y automated test stripOrdered By: Bobby Gallagher on 07-10-2021 Hemoglobin Auto test strip Ql (U) 3+ Negative [facility] Urine leukocyte esterase det ection by automated test stripOrdered By: Bobby Gallagher on 07-10-2021 Leukocyte esterase Auto test strip Ql (U) 2+ Negative [facility] Urobilinogen Auto test strip (U) [Mass/Vol]Ordered By: Bobby Gallagher on 07-10-2021 Urobilinogen (U) [Mass/Vol] Normal mg/dL Normal [facility] pH Auto test strip (U)Ordere d By: Bobby Gallagher on 07-10-2021 pH (U) 7.5 [pH] 5.0-9.0 [facility] Keppraon 03-24-2021 KEPP 13 ug/mL Normal [facility] Comment on above: Result Comment: A reference [...] known. Performed By: #### DYLON GOMEZ #### [facility] [address] [place] [address] Fire Alarm Repairer: Jhon Rios MD #### MG ELAN, CDP #### [facility] [address] [place] [address] Fire Alarm Repairer: Jude Nieves DO Lamotrigineon 7256 Lamotrigine <1.0 Low 3.0-15.0 [facility] Comment on above: Result Comment: Neither a [...] lamotrigine may be needed. Performed By: #### DYLON GOMEZ #### [facility] [address] [place] [address] [employer] Alarm Repairer: Jhon Rios MD #### MG ELAN, CDP #### [facility] [address] [place] [address] Fire Alarm Repairer: Jude Nieves DO CBC with Diffon 03-23-2021 Abs. Basophil 0.00 k/uL Normal 0.0-0.2 [facility] Comment on above: Performed By: #### DYLON GOMEZ #### [facility] [place] [address] Fire Alarm Repairer: Jhon Rios MD #### ELAN MG, CDP #### [facility] [address] [place] [address] Fire Alarm Repairer: Jude Nieves DO Abs.Neutrophil (Seg) 4.60 k/uL Normal 1.3-9.1 [facility] Comment on above: Performed By: #### DYLON GOMEZ #### [address] [address] [employer] Alarm Repairer: Jhon Rios MD #### CP, MG, CDP #### [facility] [address] [place] [address] [employer] Alarm Repairer: Jude Nieves DO Basophils/100 WBC (Bld) 1 % Normal 0-2 [facility] Comment on above: Performed By: #### DYLON GOMEZ #### [address] [address] Fire Alarm Repairer: Jhon Rios MD #### ELAN, MG, CDP #### [facility] [address] [place] [address] [employer] Alarm Repairer: Jude Nieves DO Eosinophils (Bld) [#/Vol] 0.10 10*3/uL Normal 0.0-0.4 [facility] Comment on above: Performed By: #### DYLON GOMEZ #### [address] [address] Fire Alarm Repairer: Jhon Rios MD #### ELAN, MG, CDP #### [facility] [address] [place] [address] Fire Alarm Repairer: Jude Nieves DO Eosinophils/100 WBC (Bld) 1 % Normal 0-4 [facility] Comment on above: Performed By: #### DYLON GOMEZ #### [address] [address] Fire Alarm Repairer: Jhon Rios MD #### CP, MG, CDP #### [facility] [address] [place] [address] [employer] Alarm Repairer: Jude Nieves DO Erythrocyte distribution width (RBC) [Ratio] 12.4 % Normal 11.5-14.9 [facility] Comment on above: Performed By: #### DYLON GOMEZ #### [address] [address] [employer] Alarm Repairer: Jhon Rios MD #### MG ELAN, CDP #### [facility] [place] [address] Fire Alarm Repairer: Jude Nieves DO Hematocrit (Bld) [Volume fraction] 43.3 % Normal 36-46 [facility] Comment on above: Performed By: #### DYLON GOMEZ #### [address] [address] Fire Alarm Repairer: Jhon Rios MD #### MG ELAN, CDP #### [facility] [address] [place] [address] [employer] Alarm Repairer: Jude Nieves DO Hemoglobin (Bld) [Mass/Vol] 14.8 g/dL Normal 12.0-16.0 [facility] Comment on above: Performed By: #### DYLON GOMEZ #### [address] [address] Fire Alarm Repairer: Jhon Rios MD #### MG ELAN, CDP #### [facility] [address] [place] [address] Fire Alarm Repairer: Jude Nieves DO Lymphocytes (Bld) [#/Vol] 2.90 10*3/uL Normal 1.2-5.2 [facility] Comment on above: Performed By: #### DYLON GOMEZ #### [address] [address] [employer] Alarm Repairer: Jhon Rios MD #### CP, MG, CDP #### [facility] [address] [place] [address] Fire Alarm Repairer: Jude Nieves DO Lymphocytes/100 WBC (Bld) 36 % Normal 25-45 [facility] Comment on above: Performed By: #### BERTO GOMEZO #### [address] [address] Fire Alarm Repairer: Jhon Rios MD #### CP, MG, CDP #### [facility] [address] [place] [address] Fire Alarm Repairer: Jude Nieves DO MCH (RBC) [Entitic mass] 30.8 pg Normal 26-34 [facility] Comment on above: Performed By: #### DYLON GOMEZ #### [address] [address] Fire Alarm Repairer: hJon Rios MD #### ELAN, MG, CDP #### [facility] [address] [place] [address] Fire Alarm Repairer: Jude Nieves DO MCHC (RBC) [Mass/Vol] 34.1 g/dL Normal 31-37 [facility] Comment on above: Performed By: #### DYLON GOMEZ #### [address] [address] Fire Alarm Repairer: Jhon Rios MD #### ELAN, MG, CDP #### [facility] [address] [place] [address] Fire Alarm Repairer: Jdue Nieves DO MCV (RBC) [Entitic vol] 90.1 fL Normal 80-100 [facility] Comment on above: Performed By: #### Cielo RON, LAMO #### [address] [address] Fire Alarm Repairer: Jhon Rios MD #### CP, MG, CDP #### [facility] [address] [place] [address] Fire Alarm Repairer: Jude Nieves DO Monocytes (Bld) [#/Vol] 0.50 10*3/uL Normal 0.1-1.3 [facility] Comment on above: Performed By: #### DYLON GOMEZ #### [address] [address] Fire Alarm Repairer: Jhon Rios MD #### CP, MG, CDP #### [facility] [address] [place] [address] Fire Alarm Repairer: Jude Nieves DO Monocytes/100 WBC (Bld) 6 % Normal 2-8 [facility] Comment on above: Performed By: #### DYLON GOMEZ #### [address] [address] Fire Alarm Repairer: Jhon Rios MD #### ELAN, MG, CDP #### [facility] [address] [place] [address] Fire Alarm Repairer: Jude Nieves DO Neutrophil (Seg) 56 % Normal 34-64 [facility] Comment on above: Performed By: #### DYLON GOMEZ #### [address] [address] Fire Alarm Repairer: Jhon Rios MD #### CP, MG, CDP #### [facility] [address] [place] [address] Fire Alarm Repairer: Jude Nieves DO Platelet mean volume (Bld) [Entitic vol] 7.4 fL Normal 6.0-12.0 [facility] Comment on above: Performed By: #### DYLON GOMEZ #### [address] [address] Fire Alarm Repairer: Jhon Rios MD #### CP, MG, CDP #### [facility] [address] [place] [address] Fire Alarm Repairer: Jude Nieves DO Platelets (Bld) [#/Vol] 279 10*3/uL Normal 150-450 [facility] Comment on above: Performed By: #### DYLON GOMEZ #### [address] [address] Fire Alarm Repairer: Jhon Rios MD #### CP, MG, CDP #### [facility] [place] [address] Fire Alarm Repairer: Jude Nieves DO RBC (Bld) [#/Vol] 4.81 10*6/uL Normal 4.0-5.2 [facility] Comment on above: Performed By: #### DYLON GOMEZ #### [address] [address] Fire Alarm Repairer: Jhon Rios MD #### MG ELAN, CDP #### [facility] [address] [place] [address] Fire Alarm Repairer: Jude Nieves DO WBC (Bld) [#/Vol] 8.1 10*3/uL Normal 4.5-13.5 [facility] Comment on above: Performed By: #### DYLON GOMEZ #### [address] [address] Fire Alarm Repairer: Jhon Rios MD #### ELAN, MG, CDP #### [facility] [address] [place] [address] Fire Alarm Repairer: Jude Nieves DO Abs.Imm.Granulocyte NOT REPORTED Normal 0.00-0.30 [facility] Comment on above: Performed By: #### DYLON GOMEZ #### [facility] [address] [place] [address] Fire Alarm Repairer: Jhon Rios MD #### CP, MG, CDP #### [facility] [address] [place] [address] Fire Alarm Repairer: uJde Nieves DO Auto Diff Performed NOT REPORTED Normal [facility] Comment on above: Performed By: #### DYLON GOMEZ #### [address] [address] Fire Alarm Repairer: Jhon Rios MD #### CP, MG, CDP #### [facility] [address] [place] [address] Fire Alarm Repairer: Jude Nieves DO Immature Granulocyte NOT REPORTED Normal 0 [facility] Comment on above: Performed By: #### DYLON GOMEZ #### [address] [address] Fire Alarm Repairer: Jhon Rios MD #### CP, MG, CDP #### [facility] [address] [place] [address] Fire Alarm Repairer: Jude Nieves DO NRBC Automated NOT REPORTED Normal [facility] Comment on above: Performed By: #### DYLON GOMEZ #### [address] [address] Fire Alarm Repairer: Jhon Rios MD #### CP, MG, CDP #### [facility] [address] [place] [address] Fire Alarm Repairer: Jude Nieves DO Platelet Estimate NOT REPORTED Normal [facility] Comment on above: Performed By: #### DYLON GOMEZ #### [facility] [address] [place] [address] Fire Alarm Repairer: Jhon Rios MD #### CP, MG, CDP #### [facility] [address] [facility] [place] [address] Fire Alarm Repairer: Jude Nieves DO RBC morphology finding Nom (Bld) NOT REPORTED Normal [facility] Comment on above: Performed By: #### K ARIADNE, LAMO #### [facility] [address] [place] [address] Fire Alarm Repairer: Jhon Rios MD #### CP, MG, CDP #### [facility] [address] [place] [address] Fire Alarm Repairer: Jude Nieves DO WBC Morphology NOT REPORTED Normal [facility] Comment on above: Performed By: #### K ARIADNE, LAMO #### [address] [address] Fire Alarm Repairer: Jhon Rios MD #### ELAN, MG, CDP #### [facility] [address] [place] [address] Fire Alarm Repairer: Jude Nieves DO Comp Metabolic Profon 2020 (cont.) Normal [facility] Comment on above: Result Comment: Aver age GFR for <20 years old not available. Chronic Kidney Disease: <60 mL/min/1.73sq m Kidney failure: <15 mL/min/1.73sq m eGFR calculated using average adult body mass. Additional eGFR calculator available at: http://www.[employer].com/multiple_crcl_2012.htm Performed By: #### K ARIADNE, BERTOO #### [facility] [place] [address] Fire Alarm Repairer: Jhon Rios MD #### CP, MG, CDP #### [facility] [address] [place] [address] Fire Alarm Repairer: Jude Nieves DO Albumin [Mass/Vol] 4.6 g/dL Normal 3.5-5.2 [facility] Comment on above: Performed By: #### DYLON GOMEZ #### [address] [address] Fire Alarm Repairer: Jhon Rios MD #### CP, MG, CDP #### [facility] [address] [place] [address] Fire Alarm Repairer: Jude Nieves DO Alkaline Phos 67 U/L Normal 35-104 [facility] Comment on above: Performed By: #### DYLON GOMEZ #### [address] [address] Fire Alarm Repairer: Jhon Rios MD #### ELAN, MG, CDP #### [facility] [address] [place] [address] Fire Alarm Repairer: Jude Nieves DO ALT [Catalytic activity/Vol] 10 U/L Normal 5-33 [facility] Comment on above: Performed By: #### DYLON GOMEZ #### [address] [address] Fire Alarm Repairer: Jhon Rios MD #### ELAN, MG, CDP #### [facility] [address] [place] [address] Fire Alarm Repairer: Jude Nieves DO Anion gap [Moles/Vol] 10 mmol/L Normal 9-17 [facility] Comment on above: Performed By: #### DYLON GOMEZ #### [address] [address] Fire Alarm Repairer: Jhon Rios MD #### CP, MG, CDP #### [facility] [address] [place] [address] Fire Alarm Repairer: Fanelly, Jude, DO AST [Catalytic activity/Vol] 12 U/L Normal <32 [facility] Comment on above: Performed By: #### DYLON GOMEZ #### [address] [address] Fire Alarm Repairer: Jhon Rios MD #### CP, MG, CDP #### [facility] [address] [place] [address] Fire Alarm Repairer: Jude Nieves DO Bilirubin [Mass/Vol] 0.40 mg/dL Normal 0.3-1.2 [facility] Comment on above: Performed By: #### DYLON GOMEZ #### [address] [address] Fire Alarm Repairer: Jhon Rios MD #### ELAN, MG, CDP #### [facility] [address] [place] [address] Fire Alarm Repairer: Jude Nieves DO Calcium [Mass/Vol] 9.3 mg/dL Normal 8.6-10.4 [facility] Comment on above: Performed By: #### DYLON GOMEZ #### [address] [address] Fire Alarm Repairer: Jhon Rios MD #### ELAN, MG, CDP #### [facility] [address] [place] [address] Fire Alarm Repairer: Jude Nieves DO Chloride [Moles/Vol] 101 mmol/L Normal 98-107 [facility] Comment on above: Performed By: #### DYLON GOMEZ #### [address] [address] Fire Alarm Repairer: Jhon Rios MD #### CP, MG, CDP #### [facility] [address] [place] [address] Fire Alarm Repairer: Jude Nieves DO CO2 [Moles/Vol] 25 mmol/L Normal 20-31 [facility] Comment on above: Performed By: #### DYLON GOMEZ #### [address] [address] Fire Alarm Repairer: Jhon Rios MD #### CP, MG, CDP #### [facility] [address] [place] [address] Fire Alarm Repairer: Jude Nieves DO Creatinine [Mass/Vol] 0.71 mg/dL Normal 0.50-0.90 [facility] Comment on above: Performed By: #### DYLON GOMEZ #### [address] [address] Fire Alarm Repairer: Jhon Rios MD #### ELAN MG, CDP #### [facility] [address] [place] [address] Fire Alarm Repairer: Jude Nieves DO GFR,non Amer Pediatric GFR requi res additional information. Refer to NKDEP website for Normal >60 [facility] Comment on above: Result Comment: calc ulator. Performed By: #### DYLON GOMEZ #### [address] [address] Fire Alarm Repairer: Jhon Rios MD #### ELAN, MG, CDP #### [facility] [address] [place] [address] Fire Alarm Repairer: Jude Nieves DO Glucose [Mass/Vol] 90 mg/dL Normal 70-99 [facility] Comment on above: Performed By: #### DYLON GOMEZ #### [address] [address] Fire Alarm Repairer: Jhon Rios MD #### ELAN, MG, CDP #### [facility] [address] [place] [address] [place] [address] Fire Alarm Repairer: Jude Nieves DO Potassium [Moles/Vol] 3.8 mmol/L Normal 3.7-5.3 [facility] Comment on above: Performed By: #### DYLON GOMEZ #### [address] [address] Fire Alarm Repairer: Jhon Rios MD #### ELAN, MG, CDP #### [facility] [address] [place] [address] Fire Alarm Repairer: Jude Nieves DO Protein [Mass/Vol] 7.8 g/dL Normal 6.4-8.3 [facility] Comment on above: Performed By: #### DYLON GOMEZ #### [address] [address] Fire Alarm Repairer: Jhon Rios MD #### ELAN MG, CDP #### [facility] [address] [place] [address] Fire Alarm Repairer: Jude Nieves DO Sodium [Moles/Vol] 136 mmol/L Normal 135-144 [facility] Comment on above: Performed By: #### DYLON GOMEZ #### [address] [address] Fire Alarm Repairer: Jhon Rios MD #### ELAN, MG, CDP #### [facility] [address] [place] [address] Fire Alarm Repairer: Jude Nieves DO Urea nitrogen [Mass/Vol] 11 mg/dL Normal 6-20 [facility] Comment on above: Performed By: #### Cielo RON, LAMO #### [address] [address] Fire Alarm Repairer: Jhon Rios MD #### CP, MG, CDP #### [facility] [address] [place] [address] Fire Alarm Repairer: Jude Nieves DO Albumin/Glob Ratio NOT REPORTED Normal 1.0-2.5 [facility] Comment on above: Performed By: #### DYLON GOMEZ #### [place] [address] [place] [address] Fire Alarm Repairer: Jhon Rios MD #### CP, MG, CDP #### [facility] [address] [place] [address] Fire Alarm Repairer: Jude Nieves DO BUN/CRE Ratio NOT REPORTED Normal 9-20 [facility] Comment on above: Performed By: #### DYLON GOMEZ #### [address] [address] Fire Alarm Repairer: Jhon Rios MD #### CP, MG, CDP #### [facility] [address] [place] [address] Fire Alarm Repairer: Jude Nieves DO GFR, Amer NOT REPORTED Normal >60 [facility] Comment on above: Performed By: #### DYLON GOMEZ #### [address] [address] Fire Alarm Repairer: Jhon Rios MD #### CP, MG, CDP #### [facility] [address] [place] [address] Fire Alarm Repairer: Jude Nieves DO Staging: NOT REPORTED Normal [facility] Comment on above: Performed By: #### DYLON GOMEZ #### [address] [address] Fire Alarm Repairer: Jhon Rios MD #### CP, MG, CDP #### [facility] [facility] [place] [id number] Fire Alarm Repairer: Jude Nieves DO HCG, ,Urineon 03-23 Beta HCG ( test) Ql (U) Negative Normal NEG [facility] Comment on above: Result Comment: Spec imens with hCG levels near the threshold of the test (25 mIU/mL) may give a negative or indeterminate result. In such cases, another test should be performed with a new specimen in 48-72 hours. If early is suspected clinically in this setting, correlation with quantitative serum b-hCG level is suggested. Performed By: #### U HCG #### [facility] [address] [place] [address] Fire Alarm Repairer: Jude Nieves DO Magnesiumon 03-23-2021 Magnesium [Mass/Vol] 2.2 mg/dL Normal 1.7-2.2 [facility] Comment on above: Performed By: #### K DYLON RON #### [facility] [employer] [address] [place], [place] [id number] Fire Alarm Repairer: Jhon Rios MD #### CP, MG, CDP #### [facility] [address] [place] [place] [address] Fire Alarm Repairer: Jude Nieves DO CNOVon 12-10-2020 CNOV Office Visit (PLASMN ) ----- BHAVNA KOVACS ([id number]) 2 F Date Time Provider Department 12/10/20 [...] Past Histories independently gathered by the clinical client support coordinator and the remaining scribed note accurately describes my personal service to the patient. Tamiko Morin MD Referring Provider: SELF [200] Allergies As of Date: 12/10/2020 Noted Allergy Reaction CODEINE 07/17/2017 4 - Hives 9 - Itching Date Reviewed: 12/10/2020 Reviewed by: Oliva aSntana RN - Fully Assessed Reason for Visit: [...] post-traumatic heada (more content not included)... Normal [facility] Basic Metabolic Panlon 12-05 Anion gap [Moles/Vol] 14 mmol/L Normal 9-18 [facility] Comment on above: Performed By: #### C NARCISO, BMP ####[facility] [place], [place] [phone] Calcium [Mass/Vol] 9.0 mg/dL Normal 8.5-10.2 [facility] Comment on above: Performed By: #### C NARCISO, BMP ####[facility], [place] [phone] Chloride [Moles/Vol] 104 mmol/L Normal 97-105 [facility] Comment on above: Performed By: #### C NARCISO, BMP ####[facility] [place], [place] [phone] CO2 [Moles/Vol] 19 mmol/L Low 22-30 [facility] Comment on above: Performed By: #### C NARCISO, BMP ####[facility] [place], [place] [phone] Creatinine [Mass/Vol] 0.60 mg/dL Normal 0.58-0.96 [facility] Comment on above: Performed By: #### C BC, BMP ####[facility], [place] [phone] eGFR- Amer. >60 Normal [facility] Comment on above: Performed By: #### C BC, BMP ####[facility] [place], [place] [phone] eGFR-All Other Races >60 Normal [facility] Comment on above: Result Comment: eGFR [...] GFR. Performed By: #### C NARCISO, BMP ####[address] [phone] Glucose [Mass/Vol] 87 mg/dL Normal 74-99 [facility] Comment on above: Result Comment: The [place] [employer] Association (ADA) provides guidance for cutoff [...] Standards of Medical Care in Diabetes 2016, [place] [employer]. Diabetes Care. 2016.39(Suppl 1). Performed By: #### C NARCISO, BMP ####[facility] [place], [place] [phone] Potassium [Moles/Vol] 4.6 mmol/L Normal 3.7-5.1 [facility] Comment on above: Performed By: #### C NARCISO, BMP ####[facility] [place], [place] [phone] Sodium [Moles/Vol] 137 mmol/L Normal 136-144 [facility] Comment on above: Performed By: #### C BC, BMP ####[place] [address], [place] [phone] Urea nitrogen [Mass/Vol] 8 mg/dL Normal 7-21 [facility] Comment on above: Performed By: #### C BC, BMP ####[place] [address], [place] [phone] CBCon 12-05-2020 Absolute nRBC <0.01 Normal <0.01 [facility] Comment on above: Performed By: #### C BC, BMP ####[place] [address] [address], [place] [phone] Erythrocyte distribution width (RBC) [Ratio] 12.0 % Normal 11.5-15.0 [facility] Comment on above: Performed By: #### C BC, BMP ####[place] [address] [address] [place] [phone] Hematocrit (Bld) [Volume fraction] 39.5 % Normal 36.0-46.0 [facility] Comment on above: Performed By: #### C BC, BMP ####[place] [address] [place], [place] [phone] Hemoglobin (Bld) [Mass/Vol] 13.7 g/dL Normal 11.5-15.5 [facility] Comment on above: Performed By: #### C BC, BMP ####[place] [address], [place] [phone] MCH 31.4 pG Normal 26.0-34.0 [facility] Comment on above: Performed By: #### C BC, BMP ####[place] [address] [address], [place] [phone] MCHC (RBC) [Mass/Vol] 34.7 g/dL Normal 30.5-36.0 [facility] Comment on above: Performed By: #### C BC, BMP ####[facility], [place] [phone] MCV (RBC) [Entitic vol] 90.4 fL Normal 80.0-100.0 [facility] Comment on above: Performed By: #### C BC, BMP ####[facility], [place] [phone] Platelet mean volume (Bld) [Entitic vol] 9.8 fL Normal 9.0-12.7 [facility] Comment on above: Performed By: #### C NARCISO, BMP ####[place] [address], [place] [phone] Platelets (Bld) [#/Vol] 181 10*3/uL Normal 150-400 [facility] Comment on above: Performed By: #### C NARCISO, BMP ####[address], [place] [phone] RBC (Bld) [#/Vol] 4.37 10*6/uL Normal 3.90-5.20 [facility] Comment on above: Performed By: #### C NARCISO, BMP ####[facility], [place] [phone] WBC (Bld) [#/Vol] 13.42 10*3/uL High 3.70-11.00 [facility] Comment on above: Performed By: #### C NARCISO, BMP ####[place] [address], [place] [phone] NURSING PROGon 12-05-2020 NURSING PROG HNO ID: [id number] Author: Trina Vasquez RN Service: ? Author [...] This note was completed by: Trina Vasquez [facility] ANES El 12-04-2020 ANES POST HNO ID: [id number] Author: Shady Law MD Service: Anesthesiology Author Type: Anesthesiologist Type: Anesthesia PostOp Filed: 12/04/2020 5:20 PM Note Text: POST ANESTHESIA EVALUATION NOTE SERVICE DATE: 12/04/2020 SERVICE TIME: 5:20 PM : 2000 Vitals: 12/04/20 1245 12/04/20 165 Temp: 37.1 ?C (98.8 ?F) 36.6 ?C (97.9 ?F) 12/04/20 1245 12/04/20 1654 12/04/20 1700 12/04/20 1715 BP: 124/81 99/60 101/57 106/60 12/04/20 1245 12/04/20 1654 12/04/20 1700 12/04/20 1715 Pulse: 90 64 (!) 59 69 12/04/20 1245 12/04/20 1654 12/04/20 1700 12/04/20 1715 Resp: 18 20 18 14 12/04/20 1245 12/04/20 1654 12/04/20 1700 12/04/20 1715 SpO2: 100% 100% 100% 100% Validated Vital [...] 04, 2020 TIME: 5:20 PM PAGER/CONTACT #: [phone] [facility] BRIEF OP NOTon 12-04-2020 BRIEF OP NOT HNO ID: [id number] Author: Linnea Leslie DO Service: Plastic Surgery Author Type: Resident Type: Brief Op Note Filed: 12/04/2020 4:08 PM Note Text: PLASTIC SURGERY - BRIEF OP NOTE Patient Name: Bhavna Kovacs Log ID: [id number] Surgery Date: 12/04/2020 Surgeon(s) and Modeling Instructor(s): Surgeon(s) and Role: * Tamiko Morin MD [...] Postop Diagnosis: Same Post-op Plan: Extended recovery Kristen Leslie DO Plastic AND Reconstructive Surgery Hand Surgery Resident - PGY-2 Pager: [phone] *After 6PM AND on weekends, please page [phone] (Plastic Surgery Seo Team Lead)* Normal [facility] CONSULTon 12-04-2020 CONSULT HNO ID: [id number] Author: Fara Navas MD Service: Neurology Adult [...] stated that he had an evaluation at [facility] that did not show anything and an EEG at home which did not show anything . He describes episodes of general shaking that can last from 5 to 10 minutes. Further history was limited as the patient was drowsy. Per chart review, he has ED visits at [facility] on 09/05, 10/12, 10/15, and 10/25 for [...] old adult who was admitted to the [facility] EMU on 12/05/2019 until 12/11/2019 for diagnosis. [...] 2 H PRN Or - phenol 1 [place] (CHLORASEPTIC) 1 [place] MUCOUS MEMBRANE (TOPICAL MOUTH AND THROAT) q [...] appearing, com (more content not included)... Normal [facility] NURSING PROGon 06-10-2021 NURSING PROG HNO ID: [id number] Author: Mohini Cao RN Service: Nursing Author Type: Registered Nurse Type: Nursing Progress Note Filed: 12/04/2020 9:47 PM Note Text: Nursing Progress Note Patient Name: Bhavna Kovacs Patient Location: [place] [address] At 1730, pt started shaking his head [...] is on and no further seizure monitoring. Plastics ordered telemetry for the nursing floor unit to for continuous monitoring of vitals. Around, 2049, pt had another seizure , he was found shaking his head back and forth, not responding to questions. Plastics notified and epilepsy. Epilepsy stated to give his epileptic medications and will continue to monitor. VSS stable during this time. This note was completed by: Mohini Cao Normal [facility] OPERATIVE NOon 12-04-2020 OPERATIVE NO HNO ID: [id number] Author: Tamiko Morin MD Service: Plastic Surgery Author Type: Physician Type: Operative Report Filed: 12/12/2020 11:08 AM Note Text: [facility] - Operative Report [address] [place] [address] [place] BHAVNA KOVACS : 2000 AGE: 20. SEX: F PATIENT TYPE: A HOSP SVC: PLAS LOCATION: [id number] ATTENDING PHYSICIAN: Tamiko Morin M.D. CSN NUMBER: [id number] DATE OF SURGERY/PROCEDURE: 12/04/2020 INCISION/PROCEDURE START TIME: 02:34 p.m. INCISION CLOSE/PROCEDURE END TIME: 04:07 p.m. I performed the entire case with Dr. Leslie, Dr. Randhawa, and, Dr. Langley. PREOPERATIVE DIAGNOSIS: Gender dysphoria. POSTOPERATIVE DIAGNOSIS: Gender dysphoria. SURGEON: Tamiko Morin M.D. BUSINESS INFORMATION CONSULTANT: 1. Dr. Linnea Leslie. 2. Arian Randhawa. [...] a complete dissection including the tail of Chaduhry. The specimen was oriented with sutures and [...] outcome on the table. Tamiko Morin M.D. RI:[id number] /[id number] Normal [facility] SURGICAL PATHOLOGYon 021 SURGICAL PATHOLOGY Specimen originated from [facility] Specimen #: [id number] Submitting Physician: TAMIKO MORIN M.D. (A60) FINAL [...] areas (5%). No distinct mass is identified. Strickler Attendant sections are submitted as follows: A1 slice [...] areas (5%). No distinct mass is identified. Strickler Attendant sections are submitted as follows: B1 slice [...] documented. LDF 12/05/2020 Gross examination performed at [facility], [address] [place] [address] Date of Report: 12/08/2020 Date of Procedure: 12/04/2020 Date of Receipt: 12/04/2020 Submitted by: TAMIKO MORIN M.D. (A60) Location: 0 Diagnostic interpretation performed at [facility], [address] [place] [address]. CLIA Number: [id number] Normal [facility] Self Check COVIDon SARS-CoV-2 (COVID-19) RNA ISABEL+probe Ql (Unsp spec) UPPER RESPIRATORY TRACT SWAB Normal [facility] Comment on above: Performed By: #### H CCOVD ####[address] [phone] SARS-CoV-2 (COVID-19) RNA ISABEL+probe Ql (Unsp spec) Negative for COVID19 (SARS CoV2) by RT-PCR or equivalent method. Normal Negative for COVID19 (SARS CoV2) by RT-PCR or equivalent method. [facility] Comment on above: Result Comment: This test was developed and its performance characteristics determined by [facility]'s [facility]. This test has been authorized by FDA under an Emergency Use Authorization (EUA). This test has been validated in accordance with the FDA's Guidance Document Policy for Diagnostics Testing in Laboratories Certified to Perform High Complexity Testing under CLIA prior to Emergency use Authorization for Coronavirus Disease 2019 during the Public Health Emergency issued on August 25, 2019. Test performed by [facility], [facility], [address] [place] [address]. Performed By: #### H CCOVD ####[address] [phone] CNOVon 11-26-2020 CNOV Office Visit (PLASMN ) ----- BHAVNA KOVACS ([id number]) 2 F Date Time Provider Department 11/26/20 [...] Past Histories independently gathered by the clinical client support coordinator and the remaining scribed note accurately describes [...] Status:Closed by TAMIKO MORIN on 11/27/20 Normal [facility] HISTORY PHYSICALon HISTORY PHYSICAL HNO ID: [id number] Author: Sarah Schmitz APRN.MEASUREMENT SPECIALIST Service: ? Author Type: Nurse Practitioner Type: HANDP Filed: 11/27/2020 12:49 PM Note Text: HISTORY AND PHYSICAL EXAMINATION SERVICE DATE: 11/25/2020 SERVICE TIME: 12:48 PM PRIMARY CARE PHYSICIAN: Eric French Sr, MD REASON FOR VISIT: Bhavna Kovacs is a 20 year old adult who [...] requiring medication, no history of angina, CHF, [place], cardiac surgery or stents. Denies rest pain, [...] > 1 time per night or hematuria. 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 Normal [facility] 10-30-2020 CNPN Telephone (PLASMN) ----- BHAVNA KOVACS ([id number]) 2 F Date Time Provider Department 10/30/20 [...] Clinic for this. Patient also sees a exercise teacher and has been wearing a heart monitor for the last month and gets it off this coming weekend. Most recent seizure was this past Tuesday. Patient wants to know if they need a consent form from Neurology in order to proceed with this surgery. Please Advise Rola Chappell PSS Yareli Aguila APRN.MEASUREMENT SPECIALIST 10/30/2020 12:48 PM Addendum 11/04 - 12:47 [...] - Fully Assessed Reason for Visit: Question [0617] Prescriptions as of 10/30/2020 Sig: METOPROLOL SUCCINATE [...] Encounter Status:Closed by YARELI AGUILA on 10/30/20 [facility] CONSULTATIONon 12-05-[address] [id number] CONSULTATION PATIENT NAME: BHAVNA KOVACS : 2000 MED REC NO: [id number] ROOM: [facility] ACCOUNT NO: [id number] ADMIT DATE: 07/17/2017 PROVIDER: Nahun Martini CONSULT [...] is a patient who recently relocated from [place]. The patient has had normal EEGs in the past, was declared as having non-epileptic seizures. The patient is reported to have a neurologist who had counseled her on Lexapro and Xanax. The patient reported to the RN that she identifies as male. The patient was taken to [place] ED, where she tested positive for THC. [...] grandmother. She tested positive for THC at [facility]. REVIEW OF SYSTEMS: No weight gain or [...] did not add any antiepileptic medications. NAHUN AMRTINI [id number] Doc#: [id number] CC: Normal [facility] Vital Signs Date Time Vital Sign Value Performing Clinician Facility 12-01-2023 20:12-0400 Heart rate 97 /min Aman Tapia MD Work Phone: [facility] 12-01-2023 20:12-0400 Respiratory rate 11 /min Aman Tapia MD Work Phone: [facility] 12-01-2023 20:12-0400 SaO2% (BldA) [Mass fraction] 99 % Aman Tapia MD Work Phone: [facility] 12-01-2023 18:00-0400 Diastolic blood pressure 64 mm[Hg] Aman Tapia MD Work Phone: [facility] 12-01-2023 18:00-0400 Systolic blood pressure 104 mm[Hg] Aman Tapia MD Work Phone: [facility] 12-01-2023 16:22-0400 Body temperature 97.9 [degF] Aman Taipa MD Work Phone: [facility] 12-01-2023 16:19-0400 Body height 157.5 cm Aman Tapia MD Work Phone: [facility] 12-01-2023 16:19-0400 Body mass index (BMI) [Ratio] 17.19 kg/m2 Aman Tapia MD Work Phone: [facility] 12-01-2023 16:19-0400 Body weight 42.64 kg Aman Tapia MD Work Phone: [facility] 09-20-2023 11:27-0400 Body height 154.9 cm Sarah Gonzalezley CARDIAC NURSE SPECIALIST-MEASUREMENT SPECIALIST Work Phone: [facility] [employer] [facility] 09-20-2023 11:27-0400 Body mass index (BMI) [Ratio] 19.84 kg/m2 Sarah Gonzalezley CARDIAC NURSE SPECIALIST-MEASUREMENT SPECIALIST Work Phone: [facility] [employer] [facility] 09-20-2023 11:27-0400 Body weight 47.63 kg Sarah Briceño-Melvin CARDIAC NURSE SPECIALIST-MEASUREMENT SPECIALIST Work Phone: [facility] 09-20-2023 11:27-0400 Diastolic blood pressure 76 mm[Hg] Sarah AriaslaureanoPrasadMelvin CARDIAC NURSE SPECIALIST-MEASUREMENT SPECIALIST Work Phone: [facility] 09-20-2023 11:27-0400 Heart rate 74 /min Sarahlaureano Gonzalezley CARDIAC NURSE SPECIALIST-MEASUREMENT SPECIALIST Work Phone: [facility] [employer] [facility] 09-20-2023 11:27-0400 Systolic blood pressure 108 mm[Hg] Sarah Gonzalezley CARDIAC NURSE SPECIALIST-MEASUREMENT SPECIALIST Work Phone: [facility] 09-19-2023 15:05-0400 Body height 154.9 cm Nette Lackey MD Work Phone: [facility] 09-19-2023 15:05-0400 Body mass index (BMI) [Ratio] 19.88 kg/m2 Nette Lackey MD Work Phone: [facility] 09-19-2023 15:05-0400 Body weight 47.72 kg Nette Lackey MD Work Phone: [facility] 09-19-2023 15:05-0400 Diastolic blood pressure 62 mm[Hg] Nette Lackey MD Work Phone: [facility] 09-19-2023 15:05-0400 Systolic blood pressure 104 mm[Hg] Nette Lackey MD Work Phone: [facility] 09-13-2023 10:06-0400 Body height 154.9 cm Nette Lackey MD Work Phone: [facility] 09-13-2023 10:06-0400 Body mass index (BMI) [Ratio] 20.97 kg/m2 Nette Lackey MD Work Phone: [facility] 09-13-2023 10:06-0400 Body weight 50.35 kg Nette Lackey MD Work Phone: [facility] 09-13-2023 10:06-0400 Diastolic blood pressure 78 mm[Hg] Nette Lackey MD Work Phone: [facility] 09-13-2023 10:06-0400 Systolic blood pressure 110 mm[Hg] Nette Lackey MD Work Phone: [facility] 09-07-2023 13:00-0400 Body height 154.9 cm Enriqueta OMSAN Work Phone: [facility] 09-07-2023 13:00-0400 Body mass index (BMI) [Ratio] 19.84 kg/m2 Enriqueta OSMAN Work Phone: [facility] 09-07-2023 13:00-0400 Body weight 47.63 kg Enriqueta OSMAN Work Phone: [facility] 09-07-2023 13:00-0400 Diastolic blood pressure 81 mm[Hg] Enriqueta Tse PA Work Phone: [facility] 09-07-2023 13:00-0400 Heart rate 73 /min Enriqueta Tse PA Work Phone: [facility] 09-07-2023 13:00-0400 Systolic blood pressure 117 mm[Hg] Enriqueta Tse PA Work Phone: [facility] 08-10-2023 12:52-0500 Body height 154.9 cm Lavonnelexx Garnicai CHIEF ENVIRONMENTAL COMMITMENT OFFICER Work Phone: [facility] 08-10-2023 12:52-0500 Body mass index (BMI) [Ratio] 20.03 kg/m2 Lavonne Garnicai CHIEF ENVIRONMENTAL COMMITMENT OFFICER Work Phone: [facility] 08-10-2023 12:52-0500 Body weight 48.08 kg Lavonne Garnicai CHIEF ENVIRONMENTAL COMMITMENT OFFICER Work Phone: [facility] 08-10-2023 12:52-0500 Diastolic blood pressure 70 mm[Hg] Lavonne Garnicai CHIEF ENVIRONMENTAL COMMITMENT OFFICER Work Phone: [facility] 08-10-2023 12:52-0500 Systolic blood pressure 120 mm[Hg] Lavonne Garnicai CHIEF ENVIRONMENTAL COMMITMENT OFFICER Work Phone: [facility] 07-07-2023 11:19-0500 Body height 154.9 cm Enriqueta Tse PA Work Phone: [facility] 07-07-2023 11:19-0500 Diastolic blood pressure 59 mm[Hg] Enriqueta Tse PA Work Phone: [facility] 07-07-2023 11:19-0500 Heart rate 65 /min Enriqueta Tse PA Work Phone: [facility] 07-07-2023 11:19-0500 Systolic blood pressure 100 mm[Hg] Enriqueta Tse PA Work Phone: [facility] 05-12-2023 17:00-0500 Diastolic blood pressure 56 mm[Hg] DO Eric House Work Phone: [facility] 05-12-2023 17:00-0500 Heart rate 68 /min DO Eric House Work Phone: [facility] 05-12-2023 17:00-0500 Respiratory rate 16 /min DO Eric House Work Phone: [facility] 05-12-2023 17:00-0500 SaO2% (BldA) [Mass fraction] 98 % DO Eric House Work Phone: [facility] 05-12-2023 17:00-0500 Systolic blood pressure 107 mm[Hg] DO Eric House Work Phone: [facility] 05-12-2023 13:28-0500 Body height 154.94 cm DO Eric House Work Phone: [facility] 05-12-2023 13:28-0500 Body weight 48.1 kg DO Eric House Work Phone: [facility] 05-12-2023 13:27-0500 Body temperature 97.6 [degF] DO Eric House Work Phone: [facility] 04-12-2023 14:17-0400 Diastolic blood pressure 80 mm[Hg] DO Eric House Work Phone: [facility] 04-12-2023 14:17-0400 Heart rate 77 /min DO Eric House Work Phone: [facility] 04-12-2023 14:17-0400 Respiratory rate 16 /min DO Eric House Work Phone: [facility] 04-12-2023 14:17-0400 SaO2% (BldA) [Mass fraction] 99 % DO Eric House Work Phone: [facility] 04-12-2023 14:17-0400 Systolic blood pressure 121 mm[Hg] DO Eric House Work Phone: [facility] 04-12-2023 12:17-0400 Body height 154.94 cm DO Eric House Work Phone: [facility] 04-12-2023 12:17-0400 Body temperature 97.8 [degF] DO Eric House Work Phone: [facility] 04-12-2023 12:17-0400 Body weight 49 kg DO Eric House Work Phone: [facility] 03-23-2023 15:14-0400 Body temperature 98.3 [degF] DO Eric House Work Phone: [facility] 03-23-2023 15:14-0400 Diastolic blood pressure 68 mm[Hg] DO Eric House Work Phone: [facility] 03-23-2023 15:14-0400 Heart rate 66 /min DO Eric House Work Phone: [facility] 03-23-2023 15:14-0400 Respiratory rate 17 /min DO Eric House Work Phone: [facility] 03-23-2023 15:14-0400 SaO2% (BldA) [Mass fraction] 100 % DO Eric House Work Phone: [facility] 03-23-2023 15:14-0400 Systolic blood pressure 115 mm[Hg] DO Eric House Work Phone: [facility] 03-23-2023 12:38-0400 Body height 154.94 cm DO Eric House Work Phone: [facility] 03-23-2023 12:38-0400 Body weight 48.7 kg DO Eric House Work Phone: [facility] 03-11-2023 15:14-0400 Diastolic blood pressure 55 mm[Hg] DO Eric House Work Phone: [facility] 03-11-2023 15:14-0400 Heart rate 80 /min DO Eric House Work Phone: [facility] 03-11-2023 15:14-0400 Respiratory rate 18 /min DO Eric House Work Phone: [facility] 03-11-2023 15:14-0400 SaO2% (BldA) [Mass fraction] 100 % DO Eric French Work Phone: [facility] 03-11-2023 15:14-0400 Systolic blood pressure 95 mm[Hg] DO Eric House Work Phone: [facility] 03-11-2023 12:02-0400 Body height 162.56 cm DO Eric French Work Phone: [facility] 03-11-2023 12:02-0400 Body temperature 98.8 [degF] DO Eric French Work Phone: [facility] 03-11-2023 12:02-0400 Body weight 42.18 kg DO Eric French Work Phone: [facility] 02-06-2023 18:33-0400 Diastolic blood pressure 69 mm[Hg] Davidson Ortez [facility] [employer] 02-06-2023 18:33-0400 Heart rate 88 /min Davidson Ortez [facility] [employer] [facility] 02-06-2023 18:33-0400 Respiratory rate 26 /min Davidson Ortez MD [facility] 02-06-2023 18:33-0400 SaO2% (BldA) [Mass fraction] 99 % Davidson Ortez MD [facility] [employer] [facility] 02-06-2023 18:33-0400 Systolic blood pressure 111 mm[Hg] Davidson Ortez MD [facility] [employer] [facility] 02-06-2023 17:04-0400 Body height 154.9 cm Davidson Ortez MD [facility] [email or web address] 02-06-2023 17:04-0400 Body mass index (BMI) [Ratio] 18.33 kg/m2 Davidson [facility]tez [facility] 02-06-2023 17:04-0400 Body temperature 98.8 [degF] Davidson [facility] 02-06-2023 17:04-0400 Body weight 44 kg Davidson [facility] 09-13-2022 12:30-0400 Body temperature 97 [degF] DO Eric House Work Phone: [facility] 09-13-2022 12:00-0400 Diastolic blood pressure 76 mm[Hg] DO Eric House Work Phone: [facility] 09-13-2022 12:00-0400 Heart rate 68 /min DO Eric House Work Phone: [facility] 09-13-2022 12:00-0400 Respiratory rate 20 /min DO Eric House Work Phone: [facility] 09-13-2022 12:00-0400 SaO2% (BldA) [Mass fraction] 100 % DO Eric House Work Phone: [facility] 09-13-2022 12:00-0400 Systolic blood pressure 114 mm[Hg] DO Eric House Work Phone: [facility] 09-13-2022 10:41-0400 Body height 154.94 cm DO Eric House Work Phone: [facility] 09-13-2022 10:41-0400 Body weight 46.9 kg DO Eric House Work Phone: [facility] 08-30-2022 12:23-0500 Diastolic blood pressure 72 mm[Hg] DO Eric House Work Phone: [facility] 08-30-2022 12:23-0500 Heart rate 82 /min DO Eric House Work Phone: [facility] 08-30-2022 12:23-0500 Respiratory rate 16 /min DO Eric House Work Phone: [facility] 08-30-2022 12:23-0500 SaO2% (BldA) [Mass fraction] 100 % DO Eric House Work Phone: [facility] 08-30-2022 12:23-0500 Systolic blood pressure 114 mm[Hg] DO Eric House Work Phone: [facility] 08-30-2022 10:51-0500 Body height 154.94 cm DO Eric House Work Phone: [facility] 08-30-2022 10:51-0500 Body weight 50.1 kg DO Eric House Work Phone: [facility] 08-30-2022 10:50-0500 Body temperature 98.5 [degF] DO Eric House Work Phone: [facility] 08-18-2022 13:04-0500 Diastolic blood pressure 62 mm[Hg] DO Eric House Work Phone: [facility] 08-18-2022 13:04-0500 Heart rate 68 /min DO Eric House Work Phone: [facility] 08-18-2022 13:04-0500 Respiratory rate 18 /min DO Eric House Work Phone: [facility] 08-18-2022 13:04-0500 SaO2% (BldA) [Mass fraction] 100 % DO Eric House Work Phone: [facility] 08-18-2022 13:04-0500 Systolic blood pressure 95 mm[Hg] DO Eric House Work Phone: [facility] 08-18-2022 11:09-0500 Body height 154.94 cm DO Eric House Work Phone: [facility] 08-18-2022 11:09-0500 Body temperature 97.8 [degF] DO Eric House Work Phone: [facility] 08-18-2022 11:09-0500 Body weight 46.6 kg DO Eric House Work Phone: [facility] 07-27-2022 13:11-0500 Body temperature 96.9 [degF] DO [place] Work Phone: [facility] 07-27-2022 12:58-0500 Diastolic blood pressure 67 mm[Hg] DO [place] Work Phone: [facility] 07-27-2022 12:58-0500 Heart rate 52 /min DO [place] Work Phone: [facility] 07-27-2022 12:58-0500 Respiratory rate 18 /min DO [place] Work Phone: [facility] 07-27-2022 12:58-0500 SaO2% (BldA) [Mass fraction] 100 % DO [place] Work Phone: [facility] 07-27-2022 12:58-0500 Systolic blood pressure 111 mm[Hg] DO [place] Work Phone: [facility] 07-27-2022 12:04-0500 Body height 154.94 cm DO [place] Work Phone: [facility] 07-27-2022 12:04-0500 Body weight 47.2 kg DO [place] Work Phone: [facility] 05-18-2022 12:29-0500 Body temperature 97.8 [degF] DO Tommy Jessi Work Phone: [facility] 05-18-2022 12:29-0500 Diastolic blood pressure 63 mm[Hg] DO Tommy Jessi Work Phone: [facility] 05-18-2022 12:29-0500 Heart rate 63 /min DO Tommy Jessi Work Phone: [facility] 05-18-2022 12:29-0500 Respiratory rate 18 /min DO Tommy Jessi Work Phone: [facility] 05-18-2022 12:29-0500 SaO2% (BldA) [Mass fraction] 100 % DO Tommy Jessi Work Phone: [facility] 05-18-2022 12:29-0500 Systolic blood pressure 103 mm[Hg] DO Tommy Jessi Work Phone: [facility] 05-18-2022 11:02-0500 Body height 175.26 cm DO Tommy Jessi Work Phone: [facility] 05-18-2022 11:02-0500 Body weight 48.08 kg DO Tommy Jessi Work Phone: [facility] 04-22-2022 13:59-0400 Diastolic blood pressure 74 mm[Hg] DO Tommy Jessi Work Phone: [facility] 04-22-2022 13:59-0400 Heart rate 59 /min DO Tommy Jessi Work Phone: [facility] 04-22-2022 13:59-0400 Respiratory rate 16 /min DO Tommy Jessi Work Phone: [facility] 04-22-2022 13:59-0400 SaO2% (BldA) [Mass fraction] 100 % DO Tommy Jessi Work Phone: [facility] 04-22-2022 13:59-0400 Systolic blood pressure 116 mm[Hg] DO Tommy Jessi Work Phone: [facility] 04-22-2022 10:58-0400 Body height 154.94 cm DO Tommy Jessi Work Phone: [facility] 04-22-2022 10:58-0400 Body temperature 97.1 [degF] DO Tommy Jessi Work Phone: [facility] 04-22-2022 10:58-0400 Body weight 49 kg DO Tommy Jessi Work Phone: [facility] 04-05-2022 13:19-0400 Diastolic blood pressure 74 mm[Hg] DO Tommy Jessi Work Phone: [facility] 04-05-2022 13:19-0400 Heart rate 74 /min DO Tommy Jessi Work Phone: [facility] 04-05-2022 13:19-0400 Respiratory rate 16 /min DO Tommy Jessi Work Phone: [facility] 04-05-2022 13:19-0400 SaO2% (BldA) [Mass fraction] 99 % DO Tommy Jessi Work Phone: [facility] 04-05-2022 13:19-0400 Systolic blood pressure 111 mm[Hg] DO Tommy Jessi Work Phone: [facility] 04-05-2022 10:33-0400 Body height 154.94 cm DO Tommy Jessi Work Phone: [facility] 04-05-2022 10:33-0400 Body temperature 97.1 [degF] DO Tommy Jessi Work Phone: [facility] 04-05-2022 10:33-0400 Body weight 51.9 kg DO Tommy Jessi Work Phone: [facility] 03-30-2022 12:51-0400 Diastolic blood pressure 71 mm[Hg] DO Tommy Jessi Work Phone: [facility] 03-30-2022 12:51-0400 Heart rate 81 /min DO Tommy Jessi Work Phone: [facility] 03-30-2022 12:51-0400 Respiratory rate 16 /min DO Tommy Jessi Work Phone: [facility] 03-30-2022 12:51-0400 SaO2% (BldA) [Mass fraction] 98 % DO Tommy Jessi Work Phone: [facility] 03-30-2022 12:51-0400 Systolic blood pressure 113 mm[Hg] DO Tommy Jessi Work Phone: [facility] 03-30-2022 12:07-0400 Body height 154.94 cm DO Tommy Jessi Work Phone: [facility] 03-30-2022 12:07-0400 Body weight 48.08 kg DO Tommy Jessi Work Phone: [facility] 03-30-2022 11:03-0400 Body temperature 97.7 [degF] DO Tommy Jessi Work Phone: [facility] 03-19-2022 12:02-0400 Diastolic blood pressure 66 mm[Hg] DO Tommy Jessi Work Phone: [facility] 03-19-2022 12:02-0400 Heart rate 61 /min DO Tommy Jessi Work Phone: [facility] 03-19-2022 12:02-0400 Respiratory rate 18 /min DO Tommy Jessi Work Phone: [facility] 03-19-2022 12:02-0400 SaO2% (BldA) [Mass fraction] 100 % DO Tommy Jessi Work Phone: [facility] 03-19-2022 12:02-0400 Systolic blood pressure 125 mm[Hg] DO Tommy Jessi Work Phone: [facility] 03-19-2022 11:03-0400 Body height 154.94 cm DO Tommy Jessi Work Phone: [facility] 03-19-2022 11:03-0400 Body temperature 97.3 [degF] DO Tommy Jessi Work Phone: [facility] 03-19-2022 11:03-0400 Body weight 53.5 kg DO Tommy Jessi Work Phone: [facility] 02-25-2022 12:00-0400 Diastolic blood pressure 63 mm[Hg] DO Tommy Jessi Work Phone: [facility] 02-25-2022 12:00-0400 Heart rate 71 /min DO Tommy Jessi Work Phone: [facility] 02-25-2022 12:00-0400 Respiratory rate 14 /min DO Tommy Jessi Work Phone: [facility] 02-25-2022 12:00-0400 SaO2% (BldA) [Mass fraction] 99 % DO Tommy Jessi Work Phone: [facility] 02-25-2022 12:00-0400 Systolic blood pressure 112 mm[Hg] DO Tommy Jessi Work Phone: [facility] 02-25-2022 11:07-0400 Body height 162.56 cm DO Tommy Jessi Work Phone: [facility] 02-25-2022 11:07-0400 Body temperature 98.4 [degF] DO Tommy Jessi Work Phone: [facility] 02-25-2022 11:07-0400 Body weight 50.2 kg DO Tommy Jessi Work Phone: [facility] 09-28-2021 13:35-0400 Diastolic blood pressure 73 mm[Hg] DO Eric House Work Phone: [facility] 09-28-2021 13:35-0400 Heart rate 71 /min DO Eric House Work Phone: [facility] 09-28-2021 13:35-0400 Respiratory rate 18 /min DO Eric House Work Phone: [facility] 09-28-2021 13:35-0400 SaO2% (BldA) [Mass fraction] 100 % DO Eric House Work Phone: [facility] 09-28-2021 13:35-0400 Systolic blood pressure 113 mm[Hg] DO Eric House Work Phone: [facility] 09-28-2021 11:40-0400 Body height 154.94 cm DO Eric House Work Phone: [facility] 09-28-2021 11:40-0400 Body mass index (BMI) [Ratio] 19.5 kg/m2 DO Eric House Work Phone: [facility] 09-28-2021 11:40-0400 Body temperature 98 [degF] DO Eric House Work Phone: [facility] 09-28-2021 11:40-0400 Body weight 47 kg DO Eric House Work Phone: [facility] 09-09-2021 13:05-0400 Diastolic blood pressure 65 mm[Hg] DO Eric House Work Phone: [facility] 09-09-2021 13:05-0400 Heart rate 81 /min DO Eric House Work Phone: [facility] 09-09-2021 13:05-0400 Respiratory rate 20 /min DO Eric House Work Phone: [facility] 09-09-2021 13:05-0400 SaO2% (BldA) [Mass fraction] 100 % DO Eric House Work Phone: [facility] 09-09-2021 13:05-0400 Systolic blood pressure 107 mm[Hg] DO Eric House Work Phone: [facility] 09-09-2021 11:12-0400 Body height 154.94 cm DO Eric House Work Phone: [facility] 09-09-2021 11:12-0400 Body mass index (BMI) [Ratio] 19.5 kg/m2 DO Eric House Work Phone: [facility] 09-09-2021 11:12-0400 Body weight 47 kg DO Eric House Work Phone: [facility] 09-09-2021 11:05-0400 Body temperature 97.8 [degF] DO Eric House Work Phone: [facility] 08-12-2021 14:30-0500 Diastolic blood pressure 60 mm[Hg] DO Eric House Work Phone: [facility] 08-12-2021 14:30-0500 Heart rate 68 /min DO Eric House Work Phone: [facility] 08-12-2021 14:30-0500 Respiratory rate 21 /min DO Eric House Work Phone: [facility] 08-12-2021 14:30-0500 SaO2% (BldA) [Mass fraction] 99 % DO Eric House Work Phone: [facility] 08-12-2021 14:30-0500 Systolic blood pressure 102 mm[Hg] DO Eric House Work Phone: [facility] 08-12-2021 10:45-0500 Body height 154.94 cm DO Eric House Work Phone: [facility] 08-12-2021 10:45-0500 Body mass index (BMI) [Ratio] 43.7 kg/m2 DO Eric House Work Phone: [facility] 08-12-2021 10:45-0500 Body weight 105.1 kg DO Eric House Work Phone: [facility] 08-12-2021 10:35-0500 Body temperature 97.5 [degF] DO Eric House Work Phone: [facility] 08-07-2021 12:50-0500 Diastolic blood pressure 74 mm[Hg] DO Eric House Work Phone: [facility] 08-07-2021 12:50-0500 Heart rate 91 /min DO Eric House Work Phone: [facility] 08-07-2021 12:50-0500 Respiratory rate 16 /min DO Eric House Work Phone: [facility] 08-07-2021 12:50-0500 SaO2% (BldA) [Mass fraction] 100 % DO Eric House Work Phone: [facility] 08-07-2021 12:50-0500 Systolic blood pressure 107 mm[Hg] DO Eric House Work Phone: [facility] 07-10-2021 12:55-0500 Diastolic blood pressure 72 mm[Hg] DO Eric House Work Phone: [facility] 07-10-2021 12:55-0500 Heart rate 58 /min DO Eric House Work Phone: [facility] 07-10-2021 12:55-0500 Respiratory rate 18 /min DO Eric House Work Phone: [facility] 07-10-2021 12:55-0500 SaO2% (BldA) [Mass fraction] 100 % DO Eric House Work Phone: [facility] 07-10-2021 12:55-0500 Systolic blood pressure 110 mm[Hg] DO Eric House Work Phone: [facility] 07-10-2021 10:57-0500 Body height 154.94 cm DO Eric House Work Phone: [facility] 07-10-2021 10:57-0500 Body mass index (BMI) [Ratio] 20.5 kg/m2 DO Eric House Work Phone: [facility] 07-10-2021 10:57-0500 Body temperature 97.5 [degF] DO Eric House Work Phone: [facility] 07-10-2021 10:57-0500 Body weight 49.4 kg DO Eric House Work Phone: [facility] Encounters Encounter Date Encounter Type Care Provider Facility Start: 12-15-2023 ambulatory ERIC P HOUSE Facilit y:[facility] Start: 12-15-2023 End: 12-15-2023 ambulatory ERIC P HOUSE Facility:[facility] Start: 12-09-2023 End: 12-09-2023 ambulatory ERIC [facility] Start: 12-09-2023 End: 12-09-2023 Subsequent hospital visit by physician Eric French Sr., DO Work Phone: [facility] Start: 12-08-2023 ambulatory REA SALINAS [facility] Start: 12-06-2023 End: 12-06-2023 ambulatory [facility] EMILIA REMY [facility] Start: 12-02-2023 End: 12-02[facility]2023 [facility] Start: 12-01-2023 End: 12-01-2023 Emergency department patient visit Aman Tapia MD Work Phone: [facility] ED Comment on above: Seizure-like activit y (HCC) (Primary Dx) Start: 12-01-2023 End: 12-01-2023 ambulatory SARLES D[facility] Start: 12-01-2023 End: 12-01-2023 [facility] Start: 11-29-2023 ambulatory [facility] Start: 11-25-2023 ambulatory ERIC Boland [facility] Start: 11-24-2023 End: 11-30-2023 Evaluation and management of inpatient BEATA FARA [facility] Start: 11-16-2023 End: 11-16-2023 ambulatory SWAPNA [facility] Start: 11-15-2023 End: 11-15-2023 ambulatory SARAH GABRIELMELVIN [facility] Start: 10-24-2023 End: 10-24-2023 ambulatory ERIC FRENCH Facility:[facility] Start: 10-17-2023 End: 10-18-2023 ambulatory [facility] Start: 10-17-2023 End: 10-17-2023 Evaluation and management of inpatient [facility] Start: 10-12-2023 ambulatory ERIC FRENCH Facilit y:[facility] Start: 10-10-2023 Encounter for other preprocedural examination DEBBIE MCKEON [facility] [place] Start: 10-10-2023 End: 10-12-2023 ambulatory DEBBIE Waldron [facility] [place] Start: 09-27-2023 End: 09-28-2023 Orders Only Nette Lackey MD Work Phone: [facility] Start: 09-23-2023 End: 09-24-2023 ambulatory [facility] Start: 09-20-2023 End: 09-20-2023 ambulatory [facility] Start: 09-20-2023 End: 09-20-2023 Office outpatient new 30 minutes [facility] CARDIAC NURSE SPECIALIST-MEASUREMENT SPECIALIST Work Phone: [facility] Comment on above: Muscle spasm (Primar y Dx); Chronic bilateral low back pain with bilateral sciatica; Chronic bilateral low back pain, unspecified whether sciatica present Start: 09-19-2023 End: 09-19-2023 Patient encounter procedure Nette Lackey MD Work Phone: [facility] Comment on above: Encounter for initia l prescription of implantable subdermal contraceptive (Primary Dx) Start: 09-19-2023 End: 09-19-2023 ambulatory [facility] Start: 09-15-2023 Telephone encounter Enriqueta OSMAN Work Phone: [facility] Start: 09-13-2023 End: 09-13-2023 Office outpatient new 45 minutes Nette Lackey MD Work Phone: [facility] Comment on above: Irregular menstrual cycle (Primary Dx); Cyst of left ovary Start: 09-13-2023 End: 09-13-2023 ambulatory [facility] Start: 09-12-2023 End: 09-13-2023 ambulatory ENRIQUETA TSE [facility] Start: 09-08-2023 ambulatory ERIC Boland [facility] Start: 09-07-2023 End: 09-08-2023 Orders Only Swapna Pelletier [facility] Comment on above: Low back pain, unspe cified back pain laterality, unspecified chronicity, unspecified whether sciatica present (Primary Dx) Neck pain (Primary D x) Start: 09-07-2023 End: 09-07-2023 Office outpatient visit 25 minutes Enriqueta OSMAN Work Phone: [facility] Comment on above: Right kidney stone ( Primary Dx); Chronic bilateral low back pain with bilateral sciatica; Cyst of left ovary; Gross hematuria Start: 08-26-2023 End: 08-26-2023 Evaluation and management of inpatient ROSALINE HARRIS [facility] Start: 08-26-2023 End: 08-26-2023 ambulatory [facility] Start: 08-26-2023 End: 08-26-2023 Evaluation and management of inpatient [facility] Start: 08-26-2023 End: 08-26-2023 Evaluation and management of inpatient [facility] Start: 08-26-2023 End: 08-26-2023 [facility] Start: 08-25-2023 End: 08-26-[address] [facility] Start: 08-25-2023 End: 08-26-2023 Emergency department patient visit JAVIER NATALI [facility] Start: 08-25-2023 End: 08-26-2023 ambulatory ERIC Boland [facility] Start: 08-24-2023 Evaluation and management of inpatient DEO T TAMIR [facility] Start: 08-16-2023 Telephone encounter Enriqueta OSMAN Work Phone: [facility] Start: 08-10-2023 End: 08-10-2023 Office outpatient visit 25 minutes Lavonne Davies NP Work Phone: [facility] Comment on above: Intractable complex partial epilepsy (CMS/HCC) (Primary Dx); Cervical radiculopathy; Insomnia due to medical condition; Migraine without aura and without status migrainosus, not intractable (CMS/HCC); Memory loss; Neck pain; Cervical paraspinal muscle spasm Start: 08-03-2023 End: 08-03-2023 ambulatory AARON [facility] Start: 08-02-2023 Telephone encounter Enriqueta OSMAN Work Phone: [facility] Start: 07-28-2023 End: 07-28-2023 Emergency department patient visit [facility] Start: 07-26-2023 End: 07-27-2023 ambulatory ENRIQUETA TSE [facility] Start: 07-22-2023 End: 07-23-2023 ambulatory ENRIQUETA TSE [facility] Start: 07-07-2023 End: 07-07-2023 ambulatory [facility] Start: 07-07-2023 End: 07-07-2023 Office outpatient visit 25 minutes Enriqueta OSMAN Work Phone: [facility] Comment on above: Right kidney stone ( Primary Dx) Start: 06-17-2023 End: 06-17-2023 ambulatory LUIS FERNANDO [facility] Start: 05-12-2023 End: 05-12-2023 Emergency department patient visit DO Eric House Work Phone: [facility] Work Phone: Start: 04-12-2023 End: 04-12-2023 Emergency department patient visit DO Eric House Work Phone: [facility] Work Phone: Start: 03-25-2023 End: 03-25-2023 ambulatory SWAPNA DAMON [facility] Start: 03-23-2023 End: 03-23-2023 Emergency department patient visit DO Eric French Work Phone: [facility] Work Phone: Start: 03-11-2023 End: 03-11-2023 Emergency department patient visit DO Eric French Work Phone: [facility] Work Phone: Start: 02-06-2023 End: 02-06-2023 Emergency department patient visit ERIC FRENCH [facility] Start: 02-06-2023 End: 02-06-2023 Emergency department patient visit Davidson Ortez MD [facility] ED Comment on above: Seizure (HCC) Start: 02-01-2023 End: 02-01-2023 ambulatory SWAPNA [facility] Start: 09-23-2022 End: 09-24-[address] ERIC FRENCH Facility:[facility] Start: 09-13-2022 End: 09-13-2022 Emergency department patient visit DO Eric French Work Phone: [facility] Work Phone: Start: 08-30-2022 End: 08-30-2022 Emergency department patient visit DO Eric French Work Phone: [facility] Work Phone: Start: 08-18-2022 End: 08-18-2022 Emergency department patient visit DO Eric French Work Phone: [facility] Work Phone: Start: 07-27-2022 End: 07-27-2022 Emergency department patient visit DO Los Tudawson Work Phone: [facility] Work Phone: Start: 06-12-2022 End: 06-13-[address] ERIC FRENCH Facility:[facility] Start: 05-24-2022 End: 05-24-[address] ERIC FRENCH Facility:[facility] Start: 05-18-2022 End: 05-18-2022 Emergency department patient visit DO Tommy Jessi Work Phone: [facility] Start: 05-15-2022 End: 05-15-[address] ERIC FRENCH Facility:[facility] Start: 04-22-2022 End: 04-22-2022 Emergency department patient visit DO Tommy Jessi Work Phone: [facility] Start: 04-05-2022 End: 04-05-2022 Emergency department patient visit DO Tommy Jessi Work Phone: [facility] Start: 03-30-2022 End: 03-30-2022 Emergency department patient visit DO Tommy Jessi Work Phone: [facility] Start: 03-19-2022 End: 03-19-2022 Emergency department patient visit DO Tommy Jessi Work Phone: [facility] Start: 02-25-2022 End: 02-25-2022 Emergency department patient visit DO Tommy Jessi Work Phone: [facility] Start: 01-03-2022 End: 01-03-[address] ERIC FRENCH Facility:[facility] Start: 11-29-2021 End: 11-29-[address] ERIC FRENCH Facility:[facility] Start: 10-16-2021 End: 10-16-[address] ERIC FRENCH Facility:[facility] Start: 09-28-2021 End: 09-28-2021 Emergency department patient visit DO Eric French Work Phone: [facility] Start: 09-09-2021 End: 09-09-2021 Emergency department patient visit DO Eric French Work Phone: [facility] Start: 08-20-2021 ambulatory [facility] Provider Leila Endoc rinology Comment on above: Invitation for [facility] study with Dr. Wheat Start: 08-20-2021 E-mail encounter fro m caregiver [facility] Provider [facility] Start: 08-18-2021 ambulatory DION WHITE Facility:[facility] Start: 08-12-2021 End: 08-12-2021 Emergency department patient visit DO Eric French Work Phone: [facility] Start: 08-07-2021 End: 08-07-2021 Emergency department patient visit DO Eric French Work Phone: [facility] Start: 07-10-2021 End: 07-10-2021 Emergency department patient visit DO Eric French Work Phone: [facility] Start: 03-23-2021 End: 03-23-2021 Emergency department patient visit SR ERIC [facility] Start: 07-20-2017 End: 07-20-2017 Emergency department patient visit ALEXA SAHA Facility:[facility] Procedures Date Procedure Procedure Detail Performing Clinician Start: 12-09-2023 Basic metabolic panel calcium total Radha Remy MD Start: 12-01-2023 Ct cervical spine w/o contrast material Aman Tapia MD Work Phone: Start: 12-01-2023 Ct head/brain w/o contrast material Aman Tapia MD Work Phone: Start: 12-01-2023 Basic metabolic panel calcium total Aman Tapia MD Work Phone: Start: 09-19-2023 Urine test visual color cmprsn meths Nette Lackey MD Work Phone: Start: 09-13-2023 Urine test visual color cmprsn meths Nette Lackey MD Work Phone: Start: 09-13-2023 Follow-up visit Follow-up NETTE LACKEY Start: 09-07-2023 Urnls dip stick/tablet rgnt auto w/o microscopy Enriqueta OSMAN Work Phone: Start: 08-26-2023 Adult depression screening assessment Enriqueta OSMAN Work Phone: Start: 05-12-2023 CT of abdomen and pelvis without contrast DO [employer] Work Phone: Start: 02-06-2023 Ct head/brain w/o contrast material Davidson Ortez MD Start: 02-06-2023 End: 02-06-2023 Comprehensive metabolic panel Davidson Soto Start: 08-30-2022 Urine culture DO [employer] Work Phone: Start: 09-28-2021 Plain chest X-ray DO [employer] Work Phone: Start: 09-09-2021 Urine culture DO [employer] Work Phone: Start: 08-12-2021 Urine culture DO [employer] Work Phone: Start: 08-07-2021 Urine culture DO [employer] Work Phone: Start: 07-10-2021 Urine culture DO [employer] Work Phone: Start: 07-10-2021 CT of abdomen and pelvis without contrast DO [employer] Work Phone: Start: 12-05-2017 Electroencephalogram Urine culture DO Tommy Jessi Work Phone: Urine culture DO Tommy Jessi Work Phone: Plan of Treatment Date Care Activity Detail Author Start: 09-22-2024 Tobacco Screening Tobacco Screening [facility] Start: 09-19-2024 Adult BMI Screening Adult BMI Screen ing [facility] Start: 09-19-2024 Tobacco Screening Tobacco Screening [facility] Start: 09-18-2024 Adult BMI Screening Adult BMI Screen ing [facility] Start: 09-18-2024 Tobacco Screening Tobacco Screening [facility] Start: 09-12-2024 Adult BMI Screening Adult BMI Screen ing [facility] Start: 09-12-2024 Tobacco Screening Tobacco Screening [facility] Start: 09-06-2024 Adult BMI Screening Adult BMI Screen ing [facility] Start: 09-06-2024 Subsequent hospital visit by physician 09/06/2024 11:04 AM EDT Hospital Encounter [facility] [address] [place] [address] Right kidney stone [facility] Comment on above: Right kidney stone Start: 08-25-2024 Depression Screening Depression Scre ening [facility] Start: 08-25-2024 Tobacco Screening Tobacco Screening [facility] Start: 07-28-2024 Adult BMI Screening Adult BMI Screen ing [facility] Start: 07-28-2024 Tobacco Screening Tobacco Screening [facility] Start: 07-07-2024 Tobacco Screening Tobacco Screening [facility] Start: 02-26-2024 Influenza vaccination Influenza Vacc ine [facility] Start: 01-26-2024 Influenza vaccination Flu vacc ine (Season Ended) [facility] Start: 01-21-2024 Adult BMI Screening Adult BMI Screen ing [facility] Start: 11-15-2023 End: 11-15-2023 Patient encounter procedure 11/15/2023 12:30 PM EDT Office Visit [facility] [address] [place] [id number] Sarah Rice, CARDIAC NURSE SPECIALIST-MEASUREMENT SPECIALIST [address] [place] [address] [facility] Start: 11-15-2023 End: 11-15-2023 Patient encounter procedure 11/15/2023 11:15 AM EDT Office Visit [facility] [address] [place] [address] Debbie Mckeon MD [address] [place] [address] [facility] Start: 10-04-2023 End: 10-04-2023 Patient encounter procedure 10/04/2023 10:30 AM EDT Office Visit [facility] [address] [place] [phone] Nette Lackey MD [address] [place], [place] [id number] [facility] Start: 09-23-2023 Subsequent hospital visit by physician 09/23/2023 1:00 PM EDT Hospital Encounter [facility] [address] [phone] Nette Lackey MD [address] [place] [address] [facility] Start: 09-22-2023 End: 09-22-2023 Patient encounter procedure 09/22/2023 11:00 AM EDT Office Visit [facility] [address] [place] [address] Lavonne Davies, CHIEF ENVIRONMENTAL COMMITMENT OFFICER [address] [place] [address] [facility] Start: 09-20-2023 End: 09-20-2023 Patient encounter procedure [facility] Start: 09-19-2023 End: 09-19-2023 Patient encounter procedure 09/19/2023 3:15 PM EDT Procedure visit [facility] [address] [place] [phone] Nette Lackey MD [address] [place] [address] [facility] Start: 09-13-2023 End: 09-12-2024 US Pelvis transabdominal and transvaginal Ultrasound pelvic with transvaginal Imaging Routine Cyst of left ovary Expected: 09/13/2023, Expires: 09/12/2024 [facility] Work Phone: Comment on above: Expected: 09/13/2023 , Expires: 09/12/2024 Start: 09-07-2023 End: 09-06-2024 XR Lumbar spine Views W flexion and W extension X-ray spine lumbar ap, lateral, flexion and extension only Imaging Routine Low back pain, unspecified back pain laterality, unspecified chronicity, unspecified whether sciatica present Expected: 09/07/2023, Expires: 09/06/2024 [facility] Work Phone: Comment on above: Expected: 09/07/2023 , Expires: 09/06/2024 Start: 09-07-2023 End: 09-07-2023 Patient encounter procedure 09/07/2023 11:30 AM EDT Office Visit [facility] [address] [place] [address] [place] [address] Enriqueta Tse I PA [address] [place] [address] [facility] Start: 08-10-2023 End: 08-10-2023 Patient encounter procedure 08/10/2023 10:15 AM EST Office Visit [facility] [address] [place] [phone] Enriqueta Tse PA [address] [place] [address] [facility] Start: 07-07-2023 End: 07-06-2024 US Retroperitoneum Ultrasound retroperitoneal complete Imaging Routine Right kidney stone Expected: 07/07/2023, Expires: 07/06/2024 [facility] Comment on above: Expected: 07/07/2023 , Expires: 07/06/2024 Start: 07-07-2023 End: 07-06-2024 XR Abdomen AP [facility] Work Phone: Comment on above: Expected: 07/07/2023 , Expires: 07/06/2024 Start: 03-23-2023 Lamotrigine measurement [facility] Start: 03-23-2023 Measurement of substance [facility] Start: 02-25-2023 Influenza vaccination Influenza Vacc ine [facility] Start: 01-25-2023 Influenza vaccination Flu vaccine (# 1) [facility] Start: 09-13-2022 Lamotrigine measurement [facility] Start: 09-13-2022 Measurement of substance [facility] Start: 08-18-2022 Measurement of substance [facility] Start: 2022 Screening for malign ant neoplasm of cervix Pap smear [facility] Start: 02-25-2022 Influenza vaccination INFLUENZA (#1) [facility] Start: 06-27-2021 DEPRESSION ASSESSMENT DEPRESSION ASS ESSMENT [facility] Start: 2020 DTaP,Tdap and Td Vac cines (1 - Tdap) DTaP,Tdap and Td Vaccines (1 - Tdap) [facility] Start: 2020 DTaP/Tdap/Td vaccine (1 - Tdap) DTaP/Tdap/Td vaccine (1 - Tdap) [facility] Start: 2020 Urine microalbumin profile DTAP,TDAP,TD (1 - Tdap) [facility] Start: 2019 CHLAMYDIA SCREENING (18-24) CHLAMYDIA SCREENING (18-24) [facility] Start: 2019 GC (GONORRHEA) SCREE DAVION (18-24) GC (GONORRHEA) SCREENING (18-24) [facility] Start: 2019 HEPATITIS C SCREENING HEPATITIS C SC REENING [facility] Start: 2019 Hepatitis C screening Hepatitis C sc reen [facility] Start: 2019 HIV SCREENING HIV SCREENING [facility] Start: 2017 Screening for Chlamy stevie trachomatis Chlamydia/GC screen [facility] Start: 2016 HIV screening HIV screen [facility] Start: 2015 PEDS TO ADULT TRANSI TION ANNUAL ASSESSMENT PEDS TO ADULT TRANSITION ANNUAL ASSESSMENT [facility] Start: 2013 Depression Screen Depression Screen [facility] Start: 2013 Depression Screening Depression Scre ening [facility] Start: 2013 PEDS TO ADULT TRANSI TION INITIAL DISCUSSION PEDS TO ADULT TRANSITION INITIAL DISCUSSION [facility] Start: 2012 HPV VACCINE (1 - 2-d ose series) HPV VACCINE (1 - 2-dose series) [facility] Start: 2011 MENINGOCOCCAL B: Con operations logistics analyst based on risk (1 of 2 - Risk Bexsero 2-dose series) MENINGOCOCCAL B: Consider based on risk (1 of 2 - Risk Bexsero 2-dose series) [facility] Start: 2002 Varicella vaccine (1 of 2 - 2-dose childhood series) Varicella vaccine (1 of 2 - 2-dose childhood series) [email or web address] Start: 2001 COVID-19 VACCINE (#1) COVID-19 VACCI NE (#1) [facility] Start: 2001 HEPATITIS B (1 of 3 - 3-dose series) HEPATITIS B (1 of 3 - 3-dose series) [facility] Start: 2001 Hepatitis B vaccine (1 of 3 - 3-dose series) Hepatitis B vaccine (1 of 3 - 3-dose series) [email or web address] Start: 2001 Screening for Chlamy stevie trachomatis Chlamydia Screening [facility] Bacteria identified in Urine by Culture [facility] End: 09-06-2024 Cytology Cytology Pathology and Cytology Routine Gross hematuria 1 Occurrences starting 09/07/2023 until 09/06/2024 [facility] Comment on above: 1 Occurrences starti ng 09/07/2023 until 09/06/2024 Patient Education [facility] Work Phone: Patient referral [facility] Work Phone: End: 07-07-2024 Urinalysis Urinalysis Lab Routine Right kidney stone PRN for 1 Occurrences starting 07/07/2023 until 07/07/2024 [facility] Comment on above: PRN for 1 Occurrence s starting 07/07/2023 until 07/07/2024 End: 12-01-2023 Urinalysis Urinalysis Lab STAT One Time for 1 Occurrences starting 12/01/2023 until 12/01/2023 [facility] [employer] Comment on above: One Time for 1 Occur rences starting 12/01/2023 until 12/01/2023 End: 09-06-2024 Urovysion for bladder Urovysion for bladder Lab Routine Gross hematuria 1 Occurrences starting 09/07/2023 until 09/06/2024 [facility] Work Phone: Comment on above: 1 Occurrences starti ng 09/07/2023 until 09/06/2024 Immunizations Immunization Date Immunization Notes Care Provider Isaiah francisca 11-24-2022 pneumococcal polysaccharide vaccine, 23 valent Enriqueta OSMAN Work Phone: [employer] [facility] NEGATED: Highlighted row has not occurred!07-17-2017 influenza, injectable, quadrivalent, preservative free Davidson Ortez MD [facility] Payers Date Payer Category Payer Self-pay [id number] 2016 Medicaid [id number] 2003 Medicaid [id number] 2001 Unknown [id number] 2.16.8 40.1.103260.3.579.2.176 2001 Unknown [id number] 2.16. 840.1.776633.3.579.2.594 2001 Unknown [id number] 2.16.84 0.1.270664.3.579.2.593 2001 Unknown [id number] 2.16.84 0.1.562120.3.579.2.593 2001 Unknown [id number] 2.16.84 0.1.193593.3.579.2.593 2001 Unknown [id number] 2.16.84 0.1.876457.3.579.2.593 2001 Unknown [id number] 2.16.84 0.1.032326.3.579.2.593 2001 Unknown [id number] 2.16.84 0.1.733172.3.579.2.593 2001 Unknown [id number] 2.16.84 0.1.788893.3.579.2.593 2001 Unknown [id number] 2.16.8 40.1.030635.3.579.2.173 2001 Unknown [id number] 2.16.8 40.1.006930.3.579.2.1286 2001 Unknown [id number] 2.16.8 40.1.178017.3.579.2.128 2001 Unknown [id number] 2.16.8 40.1.816106.3.579.2.6 2001 Unknown [id number] 2.16.8 40.1.501610.3.579.2.128 2001 Unknown [id number] 2.16.8 40.1.933692.3.579.2.1285 2001 Unknown [id number] 2.16.8 40.1.416819.3.579.2.1285 2001 Unknown [id number] 2.16.8 40.1.606887.3.579.2.1285 2001 Unknown [id number] 2.16.8 40.1.702324.3.579.2.1285 2001 Unknown [id number] 2.16.8 40.1.510299.3.579.2.1286 2001 Unknown [id number] 2.16.8 40.1.461439.3.579.2.128 2001 Unknown [id number] 2.16.8 40.1.680761.3.579.2.1285 2001 Unknown [id number] 2.16.8 40.1.471631.3.579.2.128 2001 Unknown [id number] 2.16.8 40.1.601877.3.579.2.1285 2001 Unknown [id number] 2.16.8 40.1.531472.3.579.2.1285 2001 Unknown [id number] 2.16.8 40.1.695672.3.579.2.128 2001 Unknown [id number] 2.16.8 40.1.185326.3.579.2.1285 2001 Unknown [id number] 2.16.8 40.1.201248.3.579.2.1285 2001 Unknown [id number] 2.16.8 40.1.277440.3.579.2.1285 2001 Unknown [id number] 2.16.8 40.1.609431.3.579.2.1285 2001 Unknown [id number] 2.16.8 40.1.888676.3.579.2.1285 2001 Unknown [id number] 2.16.8 40.1.161624.3.579.2.1285 2001 Unknown [id number] 2.16.8 40.1.192727.3.579.2.1285 2001 Unknown [id number] 2.16.8 40.1.123620.3.579.2.1285 2001 Unknown [id number] 2.16.8 40.1.154730.3.579.2.1285 2001 Unknown [id number] 2.16.8 40.1.099542.3.579.2.1285 2001 Unknown [id number] 2.16.8 40.1.605281.3.579.2.1285 2001 Unknown [id number] 2.16.8 40.1.717151.3.579.2.1285 2001 Unknown [id number] 2.16.8 40.1.130979.3.579.2.1285 2001 Unknown [id number] 2.16.8 40.1.989659.3.579.2.1285 2001 Unknown [id number] 2.16.8 40.1.291487.3.579.2.1285 2001 Unknown [id number] 2.16.8 40.1.947605.3.579.2.1286 2001 Unknown [id number] 2.16.8 40.1.570776.3.579.2.1286 2001 Unknown [id number] 2.16.84 0.1.433394.3.579.2.1286 2001 Unknown [id number] 2.16.84 0.1.413802.3.579.2.1286 2001 Unknown [id number] 2.16.8 40.1.314977.3.579.2.177 2001 Unknown [id number] 2.16.8 40.1.214767.3.579.2.177 2001 Unknown [id number] 2.16.8 40.1.551468.3.579.2.177 2001 Unknown [id number] 2.16.8 40.1.583274.3.579.2.177 2001 Unknown [id number] 2.16.8 40.1.269008.3.579.2.177 2001 Unknown [id number] 2.16.8 40.1.872115.3.579.2.718 2001 Unknown [id number] 2.16.8 40.1.904230.3.579.2.718 2001 Unknown [id number] 2.16.8 40.1.704791.3.579.2.718 2001 Unknown [id number] 2.16.8 40.1.004434.3.579.2.718 2001 Unknown [id number] 2.16.8 40.1.422089.3.579.2.718 1977 Unknown [id number] 2.16.8 40.1.896181.3.579.2.647 1959 Unknown [id number] Unknown [id number] 2.16.8 40.1.777962.3.579.2.531 Unknown [id number] 2.16.8 40.1.731582.3.579.2.531 Unknown [id number] 2.16.8 40.1.541222.3.579.2.531 Unknown [id number] 2.16.8 40.1.892229.3.579.2.531 Social History Date Type Detail Facility Start: 09-28-2021 Tobacco smoking stat us NHIS Current some day smoker [facility] Start: 2001 Sex Assigned At Female F [facility] Start: 07-17-2017 End: 02-25-2022 Tobacco smoking status NHIS Never smoked tobacco (finding) [facility] Start: 07-17-2017 End: 03-29-2019 Tobacco use and exposure Smokeless tobacco non-user [facility] Start: 12-10-2020 End: 09-13-2023 Alcohol intake Ex-drinker (finding) [facility] Start: 03-23-2021 Alcohol intake Current non-dr residential specialist of alcohol (finding) [facility] Start: 2001 Sex Assigned At Not on file [facility] Start: 07-07-2023 End: 12-01-2023 History of Social function [facility] [employer] [facility] Start: 07-07-2023 End: 12-01-2023 Tobacco use panel [facility] Housing Instability Unknown [facility] Start: 10-12-2020 Gender identity Identifies as male gender (finding) [facility] Start: 08-10-2023 Alcohol intake Lifetime non-d elena (finding) [facility] Has the [employer], or [employer] threatened to shut off services in your home in past 12Mo [facility] How often to you hav e a drink containing alcohol? Never [facility] [employer] [facility] Medical Equipment Procedure Code Equipment Code Equipment Original Text Equipment Identifier Dates [id number] Start: 07-03-2020 Comment on above: For use to withdraw testosterone Q2wks For use with testost erone administration SQ Q2wks Goals Date Patient Goal Desired Activity /State Personal health goal Comment on above: Formatting of this n ote might be different from the original. Evaluation of progress towards goal: home with family, self care Clinical Notes 12-05-2019 to 06-06-2024 Discharge InstructionsAttachmentsBeth KreROSA Arboleda-MEASUREMENT SPECIALIST - 09/20/2023 11:00 AM EDTPatient InstructionsAttaBerta Lackey MD - 09/19/2023 3:15 PM EDTPatient Instructions Note Date & Type Note Facility 12-01-2023 Hospital Discharge instructions Aman Tapia MD - 12/01/2023 6:27 PM EDT Return to this emergency room immediately if your symptoms persist, worsen or if new ones form. Make sure you follow-up with your primary care doctor within the next 1-2 business days. The following attachments cannot be sent through Care Everywhere.Seizure (Nigerian)documented in this encounter [facility] 11-16-2023 Note Syncopal episode 07/29 01/17 with 1 day hospitalization at the [facility] 11-16-2023 Note Noted SVT on loop in Jul- rate 150-170- but this does not correlate with 08/23/23 when he had syncopal episode and spent 1 day in hospital and received stitches for laceration. Start toprol 12.5 mg daily for SVT and d/w pt to call office for worsening dizzness/lightheadedness/syncope or low blood pressure- and or fatigue. [facility] 11-16-2023 Note [facility] CARDIOLOGY PROGR ESS NOTE HPI: Bhavna Kovacs is a 23 y.o. male here for 3 month F/U HPI 23 yo presents today for routine F/U and loop recorder monitoring for palpitations and seizure like activity. Review of Systems Constitutional: Negative. Respiratory: Negative. Cardiovascular: Negative. Neurological: Positive for syncope. All other systems reviewed and are negative. Previous HPI per Dr Esparza HPI: Bhavna Kovacs is a 23 y.o. [...] to male transgender [facility]- Maternal grandmother early [place]- 30's, Maternal grandfather- early [place] in 40's Allergies-none Home meds-Effexor and testosterone injections Per Dr. Esparza 09/23/20 HPI: 20-year-old patient with a history of seizure disorder was recently seen by Ms. Bruce for complaints of palpitations. He states that he has felt them quite often and was significantly bothered by it on August 10 that he went to [facility]. EKG that performed shows evidence of sinus [...] history Family medical history-paternal grandfather of an [place] at 46 years of age, paternal uncle CAD, sister with SVT, grandmother A. fib Social-never smoker, admits occasional alcohol about once or twice a year, daily marijuana use Visit Vitals BP 100/80 (BP Location: Left arm, Patient Position: Sitting, BP Cuff Size: Adult) Pulse 78 Resp 12 Ht 1.549 m (5' 1 ) Wt 44 kg (97 lb) SpO2 99% BMI 18.33 kg/m??? Smoking Status Never BSA 1.38 m??? Allergies Allergen Reactions Codeine Hives and Itching Medications: Current Outpatient Medications on File Prior to Visit Medication Sig Dispense Refill Briviact 50 mg tablet tablet TAKE 1 TABLET BY MOUTH IN THE MORNING and ONE TABLET BY MOUTH BEFORE bedtime cloBAZam (Onfi) 10 mg tablet TAKE 0.5 TABLETS BY MOUTH AT BEDTIME lamoTRIgine (LaMICtal) 100 mg tablet Take 100 mg by mouth twice a day. midodrine (Proamatine) 5 mg tablet Take 1 tablet (5 mg) by mouth in the morning, at noon, and at bedtime. 270 tablet 3 naproxen (Naprosyn) 500 mg tablet Take 500 mg by mouth twice a day. Ubrelvy 100 mg tablet Take 1 tablet by mouth. No current facility-administered medications on file prior to visit. Physical Exam: Constitutional: Appearance: Normal appearance. Without apparent distress, thin appearing HENT: Head: Normocephalic and atraumatic. Nose: [...] General: Skin is warm and dry. Capillary Refill (more content not included)... [facility] 09-20-2023 History of Present illness Narrative Images from the original note were not included. [facility] [address] [id number] Subjective Patient ID: Bhavna Kovacs is a 23 y.o. adult. Encounter Date: 09/20/2023 CHIEF COMPLAINT Chief Complaint Patient presents with Consult New patient , lumbar, x-rays HISTORY OF PRESENT ILLNESS Bhavna Kovacs is a new patient to [facility] who was referred in regards to lumbar back pain. Yonatan reported his pain started about 6 months ago and he does not recall an inciting injury or event. He is here today accompanied by his father. Yonatan states he has pain from between his shoulder blades down through his low back. The pain is central but does spread out into the paraspinal muscles. The pain also radiates into the lateral hips in anterior legs to the top of the feet. He has numbness and tingling in all of his toes. He recently had kidney stones and had increased flank pain related to that but the back pain has persisted even after he passed the stones. Location: lumbar spine Radiation: BLE Numbness/Paraesthesias:both feet Description: stabbing and throbbing Exacerbating factors: Activity, standing Alleviating Factors: None Functional impairment: None Severity: rates the pain 1-2/10 at its best and 9/10 at its worst. Duration/Initial inciting event: Symptoms have been present for 6 months. Weakness:BLE Cauda equina/Myelopathy symptoms: patient denies new bowel/bladder dysfunction, saddle anesthesia, balance problems, skid worker strength weakness, difficulty with buttoning/writing, and loss of coordination. Current and prior evaluation and treatments: -Medication trials for this problem: Tylenol - Alternative methods to treatment: None -Physical therapy/Home exercise program: None -account executive healthcare: None -Pain management: None -Pertinent spine surgeries/previous consults: None Pertinent spine history includes: None Radiologic studies reviewed with patient to their understanding. The patient symptoms were not brought on by any discrete episode of injury or trauma to the spine. Was not associated with a new illness or viral syndrome. The symptoms are not associated with any concerning constitutional symptoms such as fever, rash, unexplained change in weight or appetite. There are no new night sweats. Patient denies history of drug abuse/IV drug use. The following portions of the patient's history were reviewed and updated as appropriate: allergies, current medications, past family history, past medical history, past social history, past surgical history and problem list. PERTINENT IMAGING/DIAGNOSTIC TESTING X-ray spine lumbar ap, lateral, flexion and extension only Result Date: 09/20/2023 Narrative: XR LUMBAR SPINE AP, LATERAL, FLEXION AND EXTENSION ONLY Clinical history:Low back pain, unspecified back pain laterality, unspecified chronicity, unspecified whether sciatica present Comparison: None. Findings: There is a large neck less overlying the lower thoracic spine compromising assessment. There is no obvious vertebral body height loss. No significant movement with flexion or extension. Impression: No evident acute ossific abnormality with fairly unremarkable appearance of the lumbar spine within the limitations of this examination. Finalized by Nahun Strange MD on 09/20/2023 11:39 AM Ultrasound retroperitoneal complete Result Date: 09/12/2023 Narrative: US RETROPERITONEAL COMPLETE HISTORY: Left flank pain and hematuria COMPARISON: CT abdomen and pelvis 07/29/2023. Retroperitoneal ultrasound 07/26/2023 TECHNIQUE: Grayscale and color Doppler sonographic images of the urinary bladder and both kidneys. FINDINGS: Right kidney: * 9.7 x 5.2 x 5.1 cm * Normal echogenicity. * Multiple echogenic foci with twinkle artifact, largest in the midpole region measuring up to 3 mm. No collecting system dilatation. Left kidney: * 9.5 x 3.8 x 4.4 cm * Normal echogenicity. * Multiple echogenic foci with twinkle artifact, largest in the lower pole measuring 3 mm. No collecting system dilatation. The prevoid bladder measures 536 mL with mobile echogenic debris. Increased post void residual, measuring 347 mL. Bilateral ureteral jets visualized. IMPRESSION: * Bilateral renal calculi without collecting system dilatation. * Multiple echogenic debris within the urinary bladder. Most common etiologies include urinary stasis, urinary tract infection or blood products. * Increased post void residual measuring 347 mL. Approved by Resident Debbie Camacho MD on 09/12/2023 9:44 AM INahun MD have personally reviewed the image(s) and agree with and/or edited the report Finalized by Nahun Strange MD on 09/12/2023 1:24 PM MR brain without contrast Result Date: 09/02/2023 Narrative: EXAMINATION: MR BRAIN WO CONTRAST CLINICAL HISTORY: dizziness, syncope, intractable seizure, whiplash injury, cognitive difficulty COMPARISONS: None TECHNIQUE: Multiplanar multisequence images of the brain were obtained without contrast. Diffusion perfusion imaging was obtained. BRAIN MRI FINDINGS: There are no extra-axial collections. There is no evidence of hemorrhage. There are no areas of perfusion diffusion signal abnormality to suggest ischemia. The susceptibility images do not demonstrate evidence of hemosiderin deposition within the brain parenchyma or the leptomeninges. There is preservation of the dominguez-white matter differentiation. There are no areas of signal abnormality within the brain parenchyma or the posterior fossa to suggest lesion. The sulci and ventricles are within normal limits without evidence of hydrocephalus. The midline structures are intact, the corpus callosum is within normal limits. The region of the pineal gland and the sella turcica are unremarkable. There are no space-occupying lesions in the posterior fossa. The basilar cisterns are patent. The craniocervical junction is unremarkable. The visualized portions of the orbits are within normal limits, the globes are intact. The visualized portions of the paranasal sinuses are within normal limits. The calvarium and soft tissues are unremarkable. Impression: There are no acute intracranial changes, no evidence of ischemia or hemorrhage. There are no regions of signal abnormality. ELECTRONICALLY SIGNED BY: Jamar Quick MD EEG Video Monitoring Daily Result Date: 08/26/2023 Narrative: Refer to the following report: EEG Service Date: From 3:15 until 13:00 on 08/26/23 Date of Report: 08/26/23 Kendall Ceron MD EEG Video Monitoring Daily Result Date: 08/26/2023 Narrative: Images from the original result were not included. [facility] VIDEO-EEG REPORT EEG Service Date: From 3:15 until 13:00 on 08/26/23 Date of Report: 08/26/23 History: Bhavna Kovacs is a 23 y.o. right handed adult with a history of epilepsy, presents with breakthrough seizure, who is undergoing an EEG to evaluate for seizures and underlying epileptiform activity. Medications: Lamotrigine, Clobazam Level of Consciousness: Awake and asleep Duration of Study: 9 Hours and 37 minutes. Technical description: This EEG was acquired with electrodes placed according to the 10-20 electrode placement system. A single EKG channel was recorded for cardiac rhythm monitoring. Video was recorded simultaneously. Quality of recording was fair. Entire study was reviewed. EEG Report: Occipital dominant rhythm was seen as 10-11 Hz sinusoidal activity with amplitude of 25-50 V. This activity was sinusoidal in morphology, and was symmetric, and reactive to eye closure. Most of the awake background was comprised of intermittent alpha rhythms admixed with low amplitude fast rhythms. Focal slowing was not seen. Drowsiness and sleep states were seen, manifested by disappearance of eye blinks and EMG artifact, drop-off in PDR, appearance of vertex sharp waves, sleep spindles, K-complexes, and positive occipital sharp transients of sleep (POSTS), consistent with stages N1 and N2 of non-REM sleep. N3 stage sleep was also recorded, evidenced by 1-2 Hz delta activity with amplitude of >75uV in fronto-central regions. Epochs of REM-sleep were also recorded. Interictal epileptiform abnormalities: Interictal epileptiform discharges were not seen. Events: One push button event at 8:53 for unclear reason (likely accidental or subjective symptoms) EEG: Movement artifact, No epileptiform activity, Normal background Clinical: Unclear, on video review patient was initially drinking water then used his phone, possibly accidental or subjective symptoms. EEG Classification: This EEG was obtained while awake and asleep, and is normal. 1) Paroxysmal event (No clear motor signs, possibly accidental, no EEG correlate) Clinical Correlation: This is a normal EEG recording. No epileptiform discharges or lateralizing signs were seen. One push button event at 8:53 (08/26/23) reviewed, no clear motor signs were seen, patient likely was confused and was trying to look for event button. No associated epileptiform abnormality was seen. Carina Garcia MD Clinical Neurophysiology Fellow [facility] Teaching/Attending Physician Attestation: I have personally reviewed the entire record. I have reviewed and agree with the above documentation by the clinical neurophysiology fellow physician. Kendall Ceron MD, PhD Professor of Neurology Normal Background Push button event (unclear reason), No epileptiform activity Baseline Routine EEG Result Date: 08/26/2023 Narrative: Images from the original result were not included. [facility] VIDEO-EEG REPORT EEG Service Date: 08/26/23 Date of Report: 08/26/23 History: Bhavna Kovacs is a 23 y.o. right handed adult with a history of epilepsy, presents with breakthrough seizure, who is undergoing an EEG to evaluate for seizures and underlying epileptiform activity. Medications: Lamotrigine, Clobazam and Briviact Level of Consciousness: Awake and asleep Duration of Study: 30 minutes Technical description: This EEG was acquired with electrodes placed according to the 10-20 electrode placement system. A single EKG channel was recorded for cardiac rhythm monitoring. Video was recorded simultaneously. Quality of recording was fair. Entire study was reviewed. EEG Report: Occipital dominant rhythm was seen as 11 and 12 Hz sinusoidal activity with amplitude of 25-50 V. This activity was sinusoidal in morphology, and was symmetric, and reactive to eye closure. Most of the awake background was comprised of intermittent alpha rhythms admixed with low amplitude fast rhythms.Focal slowing was not seen. Drowsiness and sleep states were seen, manifested by disappearance of eye blinks and EMG artifact, drop-off in PDR, consistent with stage N1 of NREM-sleep. Deeper stages of sleep were not recorded.. Activation Procedures: Photic stimulation and hyperventilation were performed, and did not elicit any abnormal responses.. Interictal epileptiform abnormalities: Interictal epileptiform discharges were not seen Events: No clinical or electrographic seizures were seen. EEG Classification: This EEG was obtained while awake and asleep, and is normal. Clinical Correlation: This is a normal EEG recording. No epileptiform discharges or lateralizing signs were seen. Absence of epileptiform discharges does not exclude the diagnosis of epilepsy. Carina Garcia MD Clinical Neurophysiology Fellow [facility] Teaching/Attending Physician Attestation: I have personally reviewed the entire record. I have reviewed and agree with the above documentation by the clinical neurophysiology fellow physician. Kendall Ceron MD, PhD Professor of Neurology Normal Background CT cervical spine without contrast Result Date: 08/25/2023 Narrative: CT CERVICAL SPINE WITHOUT CONTRAST COMPARISON: 10/25/2020 HISTORY: Injury and pain. TECHNIQUE: Unenhanced axial images of the cervical spine obtained with sagittal and coronal 2-D reformatted images. Automatic exposure control (AEC) was utilized. FINDINGS: Alignment is normal. The visualized paranasal sinuses and mastoid air cells are well aerated. The base of the skull is normal. Craniocervical junction is normal. There are no acute fractures or subluxations seen. The lung apices are normal. The prevertebral soft tissues are unremarkable IMPRESSION: No acute fracture or subluxation. All CT scans at this facility use dose modulation, iterative reconstruction, and/or weight based dosing when appropriate to reduce radiation dose to as low as reasonably achievable. Finalized by Tamika Mckeon DO on 08/25/2023 5:02 PM X-ray elbow right minimum 3 views Result Date: 08/25/2023 Narrative: XR ELBOW RT MIN 3 VWS INDICATION: Fall, pain COMPARISON: None FINDINGS: No acute fracture or dislocation. Joints are in proper anatomic alignment. Soft tissues are unremarkable. No joint effusion. IMPRESSION: No acute osseous abnormality of the right elbow Finalized by Jean Marie Tanner on 08/25/2023 3:[address] brain without contrast Result Date: 08/25/2023 Narrative: Exam: CT brain without contrast. CLINICAL HISTORY: Seizure, head trauma TECHNIQUE: CT brain without intravenous contrast. COMPARISON: CT 01/03/2021 FINDINGS: There is no evidence of acute intracranial bleeding, mass effect, or CT evidence of acute ischemia/infarct. The midline structures are intact, no midline shift. The ventricles and basal cisterns are within normal limits. The brainstem and cerebellum are unremarkable. The visualized intraorbital contents are unremarkable. The paranasal sinuses and mastoid air cells are well aerated. No acute osseous abnormality in the visualized skull base and calvarium. IMPRESSION: No acute intracranial pathology. All CT scans at this facility use dose modulation, iterative reconstruction, and/or weight based dosing when appropriate to reduce radiation dose to as low as reasonably achievable. Finalized by Jean Marie Tanner on 08/25/2023 3:46 PM ALLERGIES Allergies Allergen Reactions Codeine Hives and Itching MEDICATIONS Current Outpatient Medications: BRIVIACT 50 mg tablet, Take 2 tablets (100 mg total) by mouth in the morning and 2 tablets (100 mg total) before bedtime., Disp: , Rfl: ceFUROxime (CEFTIN) 250 mg tablet, Take 1 tablet (250 mg total) by mouth in the morning., Disp: , Rfl: cloBAZam (ONFI) 2.5 mg/mL suspension, Take 4 mL (10 mg total) by mouth in the morning. 1999., Disp: , Rfl: lamoTRIgine (LaMICtal) 100 mg tablet, Take 1.5 tablets (150 mg total) by mouth in the morning and 1.5 tablets (150 mg total) before bedtime., Disp: , Rfl: midazolam (NAYZILAM) 5 mg/spray (0.1 mL) spray,non-aerosol, Administer 5 mg into each nostril as needed (seizure activity)., Disp: , Rfl: midodrine (PROAMATINE) 5 mg tablet, TAKE 1 TABLET BY MOUTH THREE TIMES DAILY (IN THE MORNING, at noon, and AT BEDTIME), Disp: , Rfl: ibuprofen (MOTRIN) 600 mg tablet, Take 1 tablet (600 mg total) by mouth every 6 (six) hours as needed for pain., Disp: 30 tablet, Rfl: 0 tiZANidine (ZANAFLEX) 2 mg tablet, Take 1 tablet (2 mg total) by mouth every 8 (eight) hours as needed for muscle spasms., Disp: 30 tablet, Rfl: 0 No current facility-administered medications for this visit.(All medications reviewed and updated) PAST MEDICAL HISTORY Past Medical History: Diagnosis Date Anesthesia complication seizures Anxiety Arrhythmia Chronic kidney disease Diabetes mellitus type 2, controlled ([facility]) states diagnosed on Tuesday DUFFY (dyspnea on exertion) Epilepsy ([facility]) Gender dysphoria Head injury Panic disorder Seizures ([facility]) last seizure was November 13 had 5-6+ seizures SVT (supraventricular tachycardia) Transgender Urinary tract infection Visual impairment SOCIAL HISTORY Social History Occupational History Not on file Tobacco Use Smoking status: Never Smokeless tobacco: Never Vaping Use Vaping Use: Never used Substance and Sexual Activity Alcohol use: Not Currently Drug use: Yes Frequency: 7.0 times per week Types: Marijuana Sexual activity: Yes Partners: Male control/protection: None REVIEW OF SYSTEMS Review of Systems Constitutional: Negative for chills and fatigue. Genitourinary: Urinary retention and leakage Musculoskeletal: Positive for back pain. Neurological: Positive for numbness (in legs when going to bathroom) and headaches. Psychiatric/Behavioral: Negative for confusion, hallucinations and self-injury. PHYSICAL EXAMINATION Objective Vitals: BP 108/76 Pulse 74 Ht 154.9 cm (5' 1 ) Wt 47.6 kg (105 lb) LMP 09/12/2023 Comment: before was Apr 2023 BMI 19.84 kg/m Physical Exam Vitals reviewed. Constitutional: Appearance: Normal appearance. He is well-developed. HENT: Head: Normocephalic. Pulmonary: Effort: Pulmonary effort is normal. Musculoskeletal: Cervical back: Normal range of motion. Lumbar back: Tenderness present. No bony tenderness. Positive right straight leg raise test and positive left straight leg raise test. Comments: Bilateral SLR causes low back pain Lower extremity muscle strength: -Hip Flexors (T12, L1, L2, L3): right 5/5, left 5/5 -Hip adductors (L2, L3, L4): right 5/5, left 5/5 -Hip abductors (L2, L3, L4): right 5/5, left 5/5 -Quadriceps (L2, L3, L4): right 5/5, left 5/5 -Hamstrings (L5, S1, S2): right 5/5, left 5/5 -Tibialis anterior (L4, L5, S1): right 5/5, left 5/5 -Tibialis posterior (L4, L5, S1, S2): right 5/5, left 5/5 -Flexor Hallucis Longus (L5, S1, S2, S3): right 5/5, left 5/5 -Extensor Hallucis Longus (L4, L5, S1): right 5/5, left 5/5 Skin: General: Skin is warm and dry. Neurological: Mental Status: He is alert and oriented to person, place, and time. Sensory: Sensation is intact. Motor: Motor function is intact. Coordination: Coordination is intact. Gait: Gait is intact. Deep Tendon Reflexes: Reflex Scores: Patellar reflexes are 2+ on the right side and 2+ on the left side. Achilles reflexes are 2+ on the right side and 2+ on the left side. Comments: No atrophy, clonus, or fasciculations Psychiatric: Attention and Perception: Attention normal. Mood and Affect: Mood and affect normal. Speech: Speech normal. Behavior: Behavior is cooperative. BEHAVIORAL SCREENING, RED/YELLOW FLAGS Elective Fusion Surgery: No Medical Marijuana/CBD use: Yes Daily MME: 0 RED FLAGS Red Flags Fever: No Night Sweats: No Unintended Weight Loss: Yes (6 pounds in one week) History of Cancer: No Immunocompromised?: Diabetes Substance Abuse- Active: No Substance Abuse- Prior History: No Cauda Equina Symptoms: Incontinence YELLOW FLAGS Yellow Flag Symptomatic Depression: No Active major thought disorder: No Excessive Narcotic Use/ MEW >30 per day: No Current average daily MEQ: 0 OARRS/MAPS Report Red Flags: Nothing Listed Aggressive/Abusive/Inappropriate Behavior: No ASSESSMENT/ PLAN Bhavna Kovacs is a new patient to [facility] who was referred in regards to lumbar back pain. Yonatan reported his pain started about 6 months ago and he does not recall an inciting injury or event. He is here today accompanied by his father. Yonatan states he has pain from between his shoulder blades down through his low back. The pain is central but does spread out into the paraspinal muscles. The pain also radiates into the lateral hips in anterior legs to the top of the feet. He has numbness and tingling in all of his toes. He recently had kidney stones and had increased flank pain related to that but the back pain has persisted even after he passed the stones. Exam demonstrates tenderness in the lumbar paraspinal muscles and bilateral positive straight leg raise reproduces pain in the low back. X-rays of the lumbar spine are unremarkable. We discussed conservative treatment and Yonatan is agreeable to physical therapy, referral provided. Ibuprofen and tizanidine prescription sent to the pharmacy to manage pain and muscle spasms. Appropriate medication education was provided. We will follow-up in 8 weeks for re-evaluation. If pain persists will consider MRI of the lumbar spine. Assessment 1. Muscle spasm 2. Chronic bilateral low back pain with bilateral sciatica 3. Chronic bilateral low back pain, unspecified whether sciatica present Plan 1. Chronic bilateral low back pain with bilateral sciatica - [facility] - Ambulatory referral to Physical Therapy ([facility]); Future 2. Muscle spasm - ibuprofen (MOTRIN) 600 mg tablet; Take 1 tablet (600 mg total) by mouth every 6 (six) hours as needed for pain. Dispense: 30 tablet; Refill: 0 - tiZANidine (ZANAFLEX) 2 mg tablet; Take 1 tablet (2 mg total) by mouth every 8 (eight) hours as needed for muscle spasms. Dispense: 30 tablet; Refill: 0 - Ambulatory referral to Physical Therapy ([facility]); Future 3. Chronic bilateral low back pain, unspecified whether sciatica present - ibuprofen (MOTRIN) 600 mg tablet; Take 1 tablet (600 mg total) by mouth every 6 (six) hours as needed for pain. Dispense: 30 tablet; Refill: 0 - tiZANidine (ZANAFLEX) 2 mg tablet; Take 1 tablet (2 mg total) by mouth every 8 (eight) hours as needed for muscle spasms. Dispense: 30 tablet; Refill: 0 The patient was instructed to call if worsening or not improving. If symptoms do not improve after this course of conservative treatment including physical therapy, we will consider MRI imaging of the lumbar spine. I educated the patient on s/s and provided information in the AVS regarding cauda equina and myelopathy if pertinent. I advised the patient to go to the ER if these symptoms occur. The OARRS/MAPPS database was reviewed today and found to be appropriate. No indication of medication diversion, or non compliance. Appropriate home exercise program education provided in AVS New medication information provided in AVS if pertinent Smoking cessation provided in patient's AVS if pertinent. All questions were answered during the encounter and the patient was in agreement with plan of care. Greater than 50% of this office visit was spent face to face with the patient addressing counseling/education, instructions for management, treatment options and importance of compliance with treatment, performing medically appropriate examination and or coordination of care. Total time also includes time preparing to see patient (e.g. personal review of chart, separately obtained history, tests, independent review of imaging results) and documenting clinical information in the electronic health record. Thank you for the referral. Total time spent was 44 minutes: Preparing to see the patient (e.g., review of tests) Obtaining and/or reviewing separately obtained history Performing a medically appropriate examination and/or evaluation Counseling and educating the patient/family/caregiver Ordering medications, tests, or procedures Referring and communicating with other health pharmacy customer care specialist (not separately reported) Documenting clinical information in the electronic or other health record Independently interpreting results (not separately reported) and communicating results to the patient/family/caregiver Care coordination (not separately reported) Sarah Rice CNP [facility] [place] This note was created with the assistance of a speech recognition program. While intending to generate a timely document that accurately reflects the content of the visit, no guarantee can be provided that every grammatical or spelling mistake has been or will be identified or corrected. Thank you for your understanding. MILAGROS Duffy 09/23/23 0806 documented in this encounter [facility] 09-20-2023 Instructions MILAGROS Duffy - 09/20/2023 11:00 AM EDT Physical therapy, call to schedule Ibuprofen 600 mg every 8 hours as needed for pain Tizanidine 2 mg every 8 hours as needed for muscle spasms Follow up in 8 weeks The following attachments cannot be sent through Care Everywhere.Back Precautions (Nigerian)documented in this encounter [facility] 09-19-2023 History of Present illness Narrative Nexplanon Contraceptive Implant Insertion Note Bhavna Kovacs desires a Nexplanon implant insertion. She has been counseled regarding the risks, benefits and alternatives to the implant. She especially understands that her menstrual periods are expected to become irregular and unpredictable throughout the time she is using the implant. She has no contraindications to the insertion. Her questions have been answered. She has fully reviewed the FDA-approved consent brochure, has signed the consent form, and wishes to proceed with the insertion today. Patient's last menstrual period was 09/12/2023. Urine test: negative OB History 0 Para 0 Term 0 0 AB 0 Living 0 SAB 0 IAB 0 Ectopic 0 Multiple 0 Live Births 0 BP 104/62 Ht 154.9 cm (5' 1 ) Wt 47.7 kg (105 lb 3.2 oz) LMP 09/12/2023 Comment: before was Apr 2023 BMI 19.88 kg/m Procedure Details The inner side of the left arm was cleansed with betadine x3 and infiltrated with 3 mls. 1% xylocaine. The contraceptive mere was inserted according to the jordan worker's instructions without complications. The mere was palpable under the skin after the insertion. The insertion site was closed with steri strips; pressure dressing applied; instructions given to leave pressure dressing on for 24 hours and steri strips on for 4 days. Bhavna was given post-insertion instructions. She understands that the implant must be removed at the end of three years and may be removed sooner if she wishes. Orders Placed This Encounter Procedures POCT , urine VANESA HAILE CMA documented in this encounter [facility] 09-15-2023 Miscellaneous Notes Please schedule him for cystoscopy/possible bilateral retrograde pyelograms under local anesthesia with Dr. Mckeon at [place]. Diagnosis: Gross hematuria, urinary retention DR MCKEON: PLEASE REVIEW AND ADVISE IF YOU WANT THIS CASE UNDER LOCAL OR MAC. THANK YOU mac documented in this encounter [facility] 09-15-2023 Telephone encounter Note Please schedule him for cystoscopy/possible bilateral retrograde pyelograms under local anesthesia with Dr. Mckeon at [place]. Diagnosis: Gross hematuria, urinary retention [facility] 09-15-[address] MCKEON: PLEASE REVIEW AND ADVISE IF YOU WANT THIS CASE UNDER LOCAL OR MAC. THANK YOU [facility] 09-15-2023 Telephone encounter Note mac [facility] 09-13-2023 History of Present illness Narrative Bhavna Kovacs is a 23 y.o.BIOLOGICAL female TRANSGENDER MALE BUT OFF OF TESTOSTERONE CYPRIONATE IM FOR PAST FEW MONTHS BECAUSE IT WAS EXACERBATING HIS SEIZURE ACTIVITY. Patient's last menstrual period was 09/12/2023.. ALSO PT SEX ACTIVE WITH 43 YO MALE AND NEEDS CONTRACEPTION. He presents Pt is here for referral for 2.8 cm left adnexal cyst from CT scan from 2-2 at [facility]. Reviewed contraceptive options with patient, including CHC (oral, vaginal, transdermal), progestin-only methods (LARCs, cyclic oral) and permanent options (BTL/ salpingectomies). At this time, patient does not have any contraindications to the above options and favors NEXPLANON UNDERSTANDS BENEFITS OF PROG ONLY NON ORAL METHODS ALL RBAI REVIEWD Current contraception:no method OB History 0 Para 0 Term 0 0 AB 0 Living 0 SAB 0 IAB 0 Ectopic 0 Multiple 0 Live Births 0 MEDICAL HX Past Medical History: Diagnosis Date Anesthesia complication seizures Anxiety Arrhythmia Chronic kidney disease Diabetes mellitus type 2, controlled ([facility]) states diagnosed on Tuesday DUFFY (dyspnea on exertion) Epilepsy ([facility]) Gender dysphoria Head injury Panic disorder Seizures ([facility]) last seizure was November 13 had 5-6+ seizures SVT (supraventricular tachycardia) Transgender Urinary tract infection Visual impairment SURGICAL HX Past Surgical History: Procedure Laterality Date BREAST SURGERY Bilateral 12/04/2020 mastectomy CYSTOSCOPY INSERTION STENT URETER Right 11/24/2021 Performed by Debbie cMkeon MD at [facility] CYSTOSCOPY REMOVAL STENT Right 12/09/2021 Performed by Debbie Mckeon MD at [facility] INSERTION LOOP RECORDER 08/03/2023 LASER HOLMIUM URETEROSCOPY RENAL STONES < OR=1CM Right 11/24/2021 Performed by Debbie Mckeon MD at [facility] FAMILY HX Family History Problem Relation Age of Onset Cancer Paternal Grandmother bladder No Known Problems Father No Known Problems Mother Breast cancer Maternal Aunt Anesthesia problems Neg Hx MEDS Current Outpatient Medications Medication Sig Dispense Refill BRIVIACT 50 mg tablet Take 2 tablets (100 mg total) by mouth in the morning and 2 tablets (100 mg total) before bedtime. ceFUROxime (CEFTIN) 250 mg tablet Take 1 tablet (250 mg total) by mouth in the morning. cloBAZam (ONFI) 2.5 mg/mL suspension Take 4 mL (10 mg total) by mouth in the morning. 1999. lamoTRIgine (LaMICtal) 100 mg tablet Take 1.5 tablets (150 mg total) by mouth in the morning and 1.5 tablets (150 mg total) before bedtime. midazolam (NAYZILAM) 5 mg/spray (0.1 mL) spray,non-aerosol Administer 5 mg into each nostril as needed (seizure activity). midodrine (PROAMATINE) 5 mg tablet TAKE 1 TABLET BY MOUTH THREE TIMES DAILY (IN THE MORNING, at noon, and AT BEDTIME) ondansetron ODT (ZOFRAN ODT) 4 mg disintegrating tablet Dissolve 1 tablet (4 mg total) on tongue every 8 (eight) hours as needed for nausea for up to 10 doses. (Patient not taking: Reported on 09/07/2023) 10 tablet 0 promethazine (PHENERGAN) 25 mg suppository INSERT 1 (ONE) SUPPOSITORY RECTALLY EVERY 6 HOURS NEEDED (Patient not taking: Reported on 11/24/2021) SUMAtriptan (IMITREX) 100 mg tablet Take 1 tablet (100 mg total) by mouth. (Patient not taking: Reported on 09/13/2023) No current facility-administered medications for this visit. ALLERGIES Allergies Allergen Reactions Codeine Hives and Itching Review of Systems Review of Systems Objective BP 110/78 Ht 154.9 cm (5' 1 ) Wt 50.3 kg (111 lb) LMP 09/12/2023 Comment: before was Apr 2023 BMI 20.97 kg/m Physical Exam BP 110/78 Ht 154.9 cm (5' 1 ) Wt 50.3 kg (111 lb) LMP 09/12/2023 Comment: before was Apr 2023 BMI 20.97 kg/m Assessment/Plan: Diagnoses and all orders for this visit: Cyst of left ovary - [facility] SOCIAL WORKER - [facility] - [place], [place] - Consult LIKELY OVULATORY FOLLICULAR CYST FU PELVIC SONO NEXPLANON PLACEMENT SCHEDULED NEXT WEEK WILL PROVIDE OVULATORY SUPPRESSION AND CONTRACEPTION UPT TODAY AND RPT NEXT WEEK PRIOR TO INSERTION CONSIDER TESTOSTERONE PELLETS FOR FUTURE HRT URINARY RETENTION UNKNOWN ETIOLOGY--EST ETIOLOGY MD Francia MIMS LPN documented in this encounter [facility] 09-07-2023 Evaluation + Plan note Associated Problem(s): Right kidney stone We will have him meet with Dr. Mckeon to review the results from his fish/cytology testing. Hopefully we will have the CT uploaded so he can review the films and get a better understanding of his stone burden. We discussed repeat cystoscopy, but he does not have a smoking history and just underwent cystoscopy in 2021 while treating kidney stones. Whether or not repeat cystoscopy is necessary will be determined at the follow-up. [facility] 09-07-2023 Miscellaneous Notes Associated Problem(s): Right kidney stone We will have him meet with Dr. Mckeon to review the results from his fish/cytology testing. Hopefully we will have the CT uploaded so he can review the films and get a better understanding of his stone burden. We discussed repeat cystoscopy, but he does not have a smoking history and just underwent cystoscopy in 2021 while treating kidney stones. Whether or not repeat cystoscopy is necessary will be determined at the follow-up. documented in this encounter [facility] 09-07-2023 History of Present illness Narrative Images from the original note were not included. [address] [place] [id number] Patient: Bhavna Kovacs Date of : 2000 Encounter Date: 09/07/2023 History of Present Illness: Chief Complaint: follow-up The patient is a 23 y.o. adult, an established patient, and is here for follow-up. Please see his history below. We were able to get his records. Report from CT without contrast 05/12/2023 states that there were bilateral stones with the largest measuring 3.5 mm in the right kidney. Bladder was unremarkable. UA showed 5-9 RBCs, 5-9 WBCs, 5-9 squamous epithelial cells, 1+ bacteria. He had an ultrasound done which was negative for obstruction. PVR was elevated at 317.3 mL. UA showed 13 RBCs and 3 WBCs. He was having some issues with saddle anesthesia so I directed him to the ER. He went to the ER on 07/28/2023 but they really did not address his issues. He went to [facility] on 07/29/2023. Report from CT without contrast states that there were bilateral nonobstructing stones but no hydronephrosis. There was also mention of a 2.8 cm left adnexal cyst. UA showed 0-2 WBCs and 20-50 RBCs. He developed gross hematuria which was persistent for 1 week. This has since resolved. He never saw a stone pass. He continues to have left flank pain and left abdominal pain. Sometimes he feels he does not fully empty his bladder. He is still having issues with bilateral lower back pain and numbness down both legs. Postvoid residual as measured by bladder scan is 71 cc Summary of old records: Notes from mt 07/07/23: He is status post cystoscopy/right ureteroscopy/stent placement 11/24/2021. This was for treatment of a 1.8 cm right renal pelvic stone. The stent was removed 12/09/2021. He started to have back pain in April. I do not have the records, but he reports that he went to [facility] both for seizures and back pain. He [...] be a few small stones Urinalysis today: Recent Labs 09/07/23 1321 EXTPOCURBS Negative EXTPOCUKET Negative EXTPOCUPRO Negative EXTPOCUNIT Negative EXTPOCUBLD Trace EXTPOCUPH 7.0 EXTPOCULEE Negative Last BUN and creatinine: Lab Results Component Value Date BUN 8 08/26/2023 Lab Results Component Value Date CREATININE 0.73 08/26/2023 Past Medical, Family, and Social History Update: The following portions of the patient's history were reviewed and updated as appropriate: allergies, current medications, past family history, past medical history, past social history, past surgical history and problem list. Past Medical History: Diagnosis Date Anesthesia complication seizures Anxiety Arrhythmia Chronic kidney disease Diabetes mellitus type 2, controlled (CMS-HCC) states diagnosed on Tuesday DUFFY (dyspnea on exertion) Epilepsy ([facility]) Gender dysphoria Head injury Panic disorder Seizures ([facility]) last seizure was November 13 had 5-6+ seizures SVT (supraventricular tachycardia) Transgender Urinary tract infection Visual impairment Past Surgical History: Procedure Laterality Date BREAST SURGERY Bilateral 12/04/2020 mastectomy CYSTOSCOPY INSERTION STENT URETER Right 11/24/2021 Performed by Debbie Mckeon MD at [facility] CYSTOSCOPY REMOVAL STENT Right 12/09/2021 Performed by Debbie Mckeon MD at [facility] LASER HOLMIUM URETEROSCOPY RENAL STONES < OR=1CM Right 11/24/2021 Performed by Debbie Mckeon MD at [facility] Family History Problem Relation Age of Onset No Known Problems Mother No Known Problems Father Anesthesia problems Neg Hx Current Outpatient Medications Medication Sig Dispense Refill BRIVIACT 50 mg tablet Take 2 tablets (100 mg total) by mouth in the morning and 2 tablets (100 mg total) before bedtime. cloBAZam (ONFI) 2.5 mg/mL suspension Take 4 mL (10 mg total) by mouth in the morning. 1999. lamoTRIgine (LaMICtal) 100 mg tablet Take 1.5 tablets (150 mg total) by mouth in the morning and 1.5 tablets (150 mg total) before bedtime. midazolam (NAYZILAM) 5 mg/spray (0.1 mL) spray,non-aerosol Administer 5 mg into each nostril as needed (seizure activity). midodrine (PROAMATINE) 5 mg tablet TAKE 1 TABLET BY MOUTH THREE TIMES DAILY (IN THE MORNING, at noon, and AT BEDTIME) SUMAtriptan (IMITREX) 100 mg tablet Take 1 tablet (100 mg total) by mouth. ceFUROxime (CEFTIN) 250 mg tablet Take 1 tablet (250 mg total) by mouth in the morning. (Patient not taking: Reported on 09/07/2023) ondansetron ODT (ZOFRAN ODT) 4 mg disintegrating tablet Dissolve 1 tablet (4 mg total) on tongue every 8 (eight) hours as needed for nausea for up to 10 doses. (Patient not taking: Reported on 09/07/2023) 10 tablet 0 promethazine (PHENERGAN) 25 mg suppository INSERT 1 [...] chest pain and shortness of breath. Gastrointestinal: Constipation -per HPI Physical Exam: BP 117/81 Pulse 73 Ht 154.9 cm (5' 1 ) Wt 47.6 kg (105 lb) BMI 19.84 kg/m Constitutional: He appears well-developed. No distress. Pulmonary/Chest: Effort normal. No respiratory distress. Neurological: He is alert and oriented for age. Gait normal. Nursing note and vitals reviewed. Assessment and Plan: Diagnoses and all orders for this visit: Right kidney stone - POCT Urinalysis Auto Only Chronic bilateral low back pain with bilateral sciatica - [facility]; Future Cyst of left ovary - [facility] SOCIAL WORKER - [facility] - [place], [place] - Consult; Future Gross hematuria - Urovysion for bladder; Future - Cytology; Future Problem List Genitourinary Right kidney stone - Primary Overview 09/07/23: Report from CT without contrast 07/29/2023 states that there were bilateral nonobstructing stones. Will upload the films. Was having gross hematuria at the time of the CT. We will send urine for fish/cytology. Will refer to the spine care center for the back pain. Referral to real estate acquisition analyst for the ovarian cyst. Previous ultrasound showed retention, but PVR today is 71. 07/07/23: Bilateral back pain since Apr. No [...] flank pain. Current Assessment & Plan We will have him meet with Dr. Mckeon to review the results from his fish/cytology testing. Hopefully we will have the CT uploaded so he can review the films and get a better understanding of his stone burden. We discussed repeat cystoscopy, but he does not have a smoking history and just underwent cystoscopy in 2021 while treating kidney stones. Whether or not repeat cystoscopy is necessary will be determined at the follow-up. Relevant Orders POCT Urinalysis Auto Only (Completed) DAWSON SEGURA This note was created with the assistance of a speech recognition program. While intending to generate a timely document that accurately reflects the content of the visit, no guarantee can be provided that every grammatical or spelling mistake has been or will be identified or corrected. Thank you for your understanding. DAWSON Segura 09/07/23 1330 documented in this encounter [facility] 08-16-2023 Miscellaneous Notes This patient was scheduled to see you last week on 08/10/23 in [place]. We rescheduled his appointment to 09/07/23. He was okay with that but he wanted to let you know that he is still see's blood in his urine. I told him that I would relay that to you. Please apologize for me. Let him know I was out sick. Is he willing to come to [place] again I can squeeze him in at 11:45 sometime this week documented in this encounter [facility] 08-16-2023 Telephone encounter Note This patient was scheduled to see you last week on 08/10/23 in [place]. We rescheduled his appointment to 09/07/23. He was okay with that but he wanted to let you know that he is still see's blood in his urine. I told him that I would relay that to you. [facility] 08-16-2023 Telephone encounter Note Please apologize for me. Let him know I was out sick. Is he willing to come to [place] again I can squeeze him in at 11:45 sometime this week [facility] 08-10-2023 History of Present illness Narrative Subjective Yonatan Kovacs is a 23 y.o. female. HPI Yonatan had been seizure free for two months, May and June until 15 of July had irritability prior to seizure and then had vomiting after. Having memory loss. History of TBI. Yonatan states head injury when Yonatan was 15 and then started to have seizures. Yonatan reports ringing in ears. Yonatan has not wanted to have repeat EEG. Yonatan did have recent loop recorder placed to left side as still was having events of passing out and dizziness. Yonatan also takes midodrine. Yonatan reports neck pain and numbness to left arm and reports tremoring. Yonatan had the EMG done and Dr. Easton told Yonatan it was a pinched nerve. Ynoatan has difficulty sleeping. BP 120/70 (BP Location: Left arm, Patient Position: Sitting) Ht 5' 1 Wt 106 lb BMI 20.03 kg/m Allergies Allergen Reactions Codeine Hives and Itching Other Reaction(s): Hives Other Reaction(s): Not available Current Outpatient Medications: midodrine (Proamatine) 5 MG tablet, Take 5 mg by mouth in the morning and 5 mg in the evening and 5 mg before bedtime., Disp: , Rfl: biotin 10 MG capsule, Take 100 mg by mouth in the morning., Disp: , Rfl: brivaracetam (Briviact) 50 MG tablet tablet, Take 1 tablet (50 mg) by mouth in the morning and 1 tablet (50 mg) before bedtime., Disp: 60 tablet, Rfl: 2 cefuroxime (Ceftin) 250 MG tablet, Take 1 tablet, by mouth, once daily, 30 days, Disp: 30 tablet, Rfl: 2 Ciclopirox 1 % shampoo, Lather on wet hair, leave on 5 min, rinse 2-3 x week, 30 day supply, Disp: 120 mL, Rfl: 11 clindamycin (Cleocin T) 1 % lotion, Apply thin layer to face, once daily in the morning, 30 day supply, Disp: 60 mL, Rfl: 2 cloBAZam (Onfi) 10 MG tablet, Take 1 tablet (10 mg) by mouth at bedtime, Disp: 30 tablet, Rfl: 2 ibuprofen 800 MG tablet, Take 800 mg by mouth 3 (three) times a day as needed., Disp: , Rfl: lamoTRIgine (LaMICtal) 100 MG tablet, Take 1 tablet (100 mg) by mouth in the morning and 1 tablet (100 mg) before bedtime., Disp: 60 tablet, Rfl: 11 lidocaine (Lidoderm) 5 % patch, , Disp: , Rfl: Midazolam (Nayzilam) 5 MG/0.1ML solution, Administer 1 spray into affected nostril(s) if needed (1 spray 5 mg in one nostril x1 may repeat in opposite nostril in 10 min), Disp: 6 each, Rfl: 2 ondansetron ODT (Zofran-ODT) 4 MG disintegrating tablet, DISSOLVE 1 TABLET ON THE TONGUE EVERY EIGHT HOURS NEEDED FOR VOMITING and FOR NAUSEA, Disp: , Rfl: SUMAtriptan (Imitrex) 100 MG tablet, Take 1 tablet (100 mg) by mouth if needed for migraine (1 po onset of migraine may repeat in 2 hours max 2 times a day and 2 times a week)., Disp: 9 tablet, Rfl: 11 True Metrix Blood Glucose Test test strip, USE TEST STRIP TO TEST BLOOD SUGAR EVERY DAY, Disp: , Rfl: Past Medical History: Diagnosis Date Diabetes (CMS/HCC) Seizures (CMS/HCC) Past Surgical History: Procedure Laterality Date LOOP RECORDER IMPLANT Left MASTECTOMY Bilateral Family History Problem Relation Name Age of Onset Cancer Other Melanoma Neg Hx reports that she has never smoked. She has never used smokeless tobacco. She reports current drug use. Drug: Marijuana. She reports that she does not drink alcohol. Review of Systems Constitutional: Negative for chills, fatigue and fever. HENT: Negative for tinnitus. Eyes: Negative for photophobia. Respiratory: Negative for shortness of breath. Cardiovascular: Negative for chest pain. Gastrointestinal: Negative for nausea and vomiting. Genitourinary: Negative for frequency. Musculoskeletal: Positive for neck pain and neck stiffness. Negative for back pain and gait problem. Neurological: Positive for seizures and numbness. Negative for dizziness, tremors, weakness, light-headedness and headaches. Psychiatric/Behavioral: Positive for decreased concentration and sleep disturbance. Objective Neurological Exam Mental Status Awake, alert and oriented to person, place and time. Oriented to person, place and time. Recent and remote memory are intact. Speech is normal. Language is fluent with no aphasia. Attention and concentration are normal. Cranial Nerves CN II: Visual acuity is normal. Visual brown full to confrontation. CN III, IV, : Extraocular movements intact bilaterally. Normal lids and orbits bilaterally. Pupils equal round and reactive to light bilaterally. CN V: Facial sensation is normal. CN VII: Full and symmetric facial movement. CN VIII: Hearing is normal. CN XII: Tongue midline without atrophy or fasciculations. Motor Normal muscle bulk throughout. Increased muscle tone. Cervical/neck increased muscle spasm. Right Left Wrist flexion 5 5 Wrist extension 5 5 Right Left Deltoid 5 5 Biceps 5 5 Triceps 5 5 Wrist flexor 5 5 Wrist extensor 5 5 Glutei 5 5 Iliopsoas 5 5 Quadriceps 5 5 Gastrocnemius 5 5 Anterior tibialis 5 5 Posterior tibialis 5 5 Sensory Light touch is normal in upper and lower extremities. Pinprick is normal in upper and lower extremities. Vibration is normal in upper and lower extremities. Reflexes Right Left Brachioradialis 2+ 2+ Biceps 2+ 2+ Patellar 2+ 2+ Achilles 2+ 2+ Right Plantar: downgoing Left Plantar: downgoing Right pathological reflexes: Aj's absent. Ankle clonus absent. Left pathological reflexes: Aj's absent. Ankle clonus absent. Coordination Dizjij-dl-bzza, rapid alternating movements and vkpf-kp-npis normal bilaterally without dysmetria. Gait Normal casual, toe, heel and tandem gait. Romberg is absent. Assessment/Plan Diagnoses and all orders for this visit: Intractable complex partial epilepsy (CMS/HCC) - Midazolam (Nayzilam) 5 MG/0.1ML solution; Administer 1 spray into affected nostril(s) if needed (1 spray 5 mg in one nostril x1 may repeat in opposite nostril in 10 min) - cloBAZam (Onfi) 10 MG tablet; Take 1 tablet (10 mg) by mouth at bedtime Cervical radiculopathy Insomnia due to medical condition Migraine without aura and without status migrainosus, not intractable (CMS/HCC) Memory loss Neck pain Cervical paraspinal muscle spasm 23 year old transgender male with recurrent events of syncope with recent placement of loop recorder. Yonatan also takes Midodrine for these events. History of head injury when Yonatan was 15 years old which brought on Yonatan's seizures. Yonatan went almost 2 months seizure free. Yonatan has tried multiple medication classes. I will increase onfi at bedtime and this may also help Yonatan rest and sleep. I believe Yonatan would be great candidate for VNS treatment however we need a repeat EEG to show epileptiform activity and Yonatan has not wanted this repeat testing. Nayzilam is Yonatan's acute treatment for onset of seizures. Yonatan is having memory loss and insomnia. I recommended brain mapping and Yonatan was given print out regarding this testing. Yonatan has neck pain and numbness to left arm due to cervical radiculopathy. I recommended biotin 100 mg daily Yonatan can buy on Genero to treatment memory health and numbness. Migraines have not worsened and Imitrex aborts them. documented in this encounter [facility] 08-03-2023 Note LOOP IMPLANT PROCEDU RE NOTE DATE OF PROCEDURE: 08/03/23 PERFORMING PHYSICIAN: Dr. Aaron Esparza BUSINESS INFORMATION CONSULTANT: SHARRI INDICATIONS FOR PROCEDURE: 1. SVT surveillance CONSENT: Patient LOCATION: EP lab PROCEDURAL SEDATION: None FLUOROSCOPY TIME: 0min PREPARATION: Preoperative antibiotics was administered. EBL: 5cc SPECIMEN REMOVED: None PROCEDURES PERFORMED: 1. LOOP implant PROCEDURE NOTE: 23 y.o. year old with past medical history of palpitations, non-epileptic seizures, DM2 was recently seen 02/01/23 for concerns of shortness of breath and having multiple episodes of seizure-like activity which resulted in respiratory failure. He continues to have palpitations, event monitor did not show significant arrhythmia. He has had multiple syncopal episodes without explanation. He does have hx of syncope related to seizures and vasovagal but there multiple syncopal events in the past unrelated to either which raises concern for cardiac arrhythmia. LOOP implanted for symptom-EKG correlation. Patient was brought to the EP lab in the post absorptive state. A procedural pause was performed verifying the patient, the procedure. Sterile prep and drape were performed over the left precordium and anesthesia with 1% lidocaine was followed by a small incision was made in the 3rd intercostal space near the sternum on the left using the Zurn tool. The loop recorder was then injected subcutaneously and noted to have good sensing parameters. Technical details of the device as noted below. The skin was then closed with 3-0 absorbable monofilament suture and glue applied to hold the edges together. Tegaderm was applied to cover the wound. The patient appeared to tolerate the procedure well and was returned to the room in stable condition. No complications were immediately observed. Sensin.28mV. IMPRESSION: Successful placement of LOOP implant with excellent sensing parameters. COMPLICATIONS: None RECOMMENDATIONS: 1. Occlusive dressing to be changed after 7 days. 2. Do not wet the incision. Aaron Esparza MD Cardiac Electrophysiology. [facility] 08-02-2023 Miscellaneous Notes Please call for an update. I see he went to the ER but it does not appear that they addressed the back pain? Is he still having back pain and saddle anesthesia? If so, he honestly needs to go back to have that specifically addressed. If not, we should have him come in for an appointment within the next week or so for UA/PVR Pt states he went to [facility] after his 07/28/2023 ER visit and was told that he has an ovarian cyst and kidney stones. I called to request the records/images to PACS but had to [facility]. I also sent a fax request. [facility] fax # [phone] Yareli/Renetta: Can we get him for an appointment here or [place] in the next week or two? Patient has been scheduled for next Tuesday in our [place] office. documented in this encounter [email or web address] 08-02-2023 Telephone encounter Note Please call for an update. I see he went to the ER but it does not appear that they addressed the back pain? Is he still having back pain and saddle anesthesia? If so, he honestly needs to go back to have that specifically addressed. If not, we should have him come in for an appointment within the next week or so for UA/PVR [email or web address] 08-02-2023 Telephone encounter Note Pt states he went to [facility] after his 07/28/2023 ER visit and was told that he has an ovarian cyst and kidney stones. I called to request the records/images to PACS but had to [facility]. I also sent a fax request. [facility] fax # [phone] [email or web address] 08-02-2023 Telephone encounter Note Buffy: Can we get him for an appointment here or [place] in the next week or two? [facility] 08-02-2023 Telephone encounter Note Patient has been scheduled for next Tuesday in our [place] office. [facility] 07-07-2023 Evaluation + Plan note Associated Problem(s): [...] a referral to the spine care center. [facility] 07-07-2023 Miscellaneous Notes Associated Problem(s): Right kidney [...] spine care center. documented in this encounter [facility] 07-07-2023 History of Present illness Narrative Images from the original note were not included. [address] [facility] [address] Patient: Bhavna Kovacs Date of : 2000 [...] but he reports that he went to [facility] both for seizures and back pain. He [...] kidney disease Diabetes mellitus type 2, controlled ([facility]) states diagnosed on Tuesday DUFFY (dyspnea on exertion) Epilepsy ([facility]) Gender dysphoria Head injury Panic disorder Seizures ([facility]) last seizure was November 13 had 5-6+ seizures SVT (supraventricular tachycardia) ([facility]) Transgender Urinary tract infection Visual impairment Past Surgical History: Procedure Laterality Date BREAST SURGERY Bilateral 12/04/2020 mastectomy CYSTOSCOPY INSERTION STENT URETER Right 11/24/2021 Performed by Debbie Mckeon MD at [facility] CYSTOSCOPY REMOVAL STENT Right 12/09/2021 Performed by Debbie Mckeon MD at [facility] LASER HOLMIUM URETEROSCOPY RENAL STONES < OR=1CM Right 11/24/2021 Performed by Debbie Mckeon MD at [facility] Family History Problem Relation Age of Onset [...] Segura 07/07/23 1248 documented in this encounter [email or web address] 07-07-2023 Instructions DAWSON Segura - 07/07/2023 11:00 AM EST I do not see any obvious stones on x-ray. There are some limitations with the study though, so to rule out your kidneys as the source of the pain, let us have you get an ultrasound. Call central scheduling at [phone] to schedule the ultrasound. I will watch [...] investigate musculoskeletal sources for your symptoms Enriqueta: [phone] (Ext [id number]) documented in this encounter [email or web address] 06-17-2023 Note [facility] Consult Note Reason [...] to male transgender FMH- Maternal grandmother early [place]- 30's, Maternal grandfather- early [place] in 40's Allergies-none Home meds-Effexor and testosterone injections Per Dr. Esparza 09/23/20 HPI: 20-year-old patient with a history of seizure disorder was recently seen by Ms. Bruce for complaints of palpitations. He states that he has felt them quite often and was significantly bothered by it on August 10 that he went to [facility]. EKG that performed shows evidence of sinus [...] history Family medical history-paternal grandfather of an [place] at 46 years of age, paternal uncle CAD, sister with SVT, grandmother Leonela milian Social-never smoker, admits occasional alcohol about once [...] alcohol abuse, H (more content not included)... [facility] 06-17-2023 Note Patient here for fol low up event monitor and echo. He is c/o chest pain, SOB, palpitations, and lightheadedness. Review of Systems Cardiovascular: Positive for chest pain, dyspnea on exertion, palpitations and syncope. Respiratory: Positive for shortness of breath. Neurological: Positive for light-headedness and seizures. All other systems reviewed and are negative. [facility] 02-06-2023 Hospital Discharge instructions Davidson Ortez MD [...] any other concerns. documented in this encounter [facility] 02-01-2023 Note Orthostatic vitals t judy were unrevealing, discussed with patient to maintain adequate hydration, add extra sodium to diet to help maintain higher blood pressure and will start midodrine 5 mg 3 times daily to see if symptoms improve Return to clinic after event monitor is complete and echo completed to review [facility] 02-01-2023 Note Patient reports dysp marcella on [...] cardiac function, and for any concerning arrhythmias [facility] 02-01-2023 Note Patient reports seiz ure activity [...] pressures in light of dyspnea on exertion [facility] 02-01-2023 Note Intermittent palpita tions with noted lightheadedness/dizzness, and DUFFY. Will order 30 day event monitor to assess for any concerning arrythmias that may co-orelate with seizure activity also, [facility] 02-01-2023 Note [facility] CARDIOLOGY PROGR ESS NOTE [...] for breakthrough seizure- currently managed by [facility]. 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 Respiratory: Positive for shortness of breath. Cardiovascular: Negative for chest pain, palpitations and leg swelling. Neurological: Positive for dizziness and light-headedness. All other systems reviewed and are negative. Previous HPI per Dr Esparza- 09/23/2020 cc: Palpitations HPI: 20-year-old patient with a history of seizure disorder was recently seen by Ms. Bruce for complaints of palpitations. He states that he has felt them quite often and was significantly bothered by it on August 10 that he went to [facility]. EKG that performed shows evidence of sinus [...] history Family medical history-paternal grandfather of an [place] at 46 years of age, paternal uncle [...] Thought Content: T (more content not included)... [facility] 12-10-2020 Note HNO ID: [id number] Author: Tamiko Morin MD Service: ? Author [...] Past Histories independently gathered by the clinical client support coordinator and the remaining scribed note accurately describes my personal service to the patient. Tamiko Morin MD [facility] 12-05-2020 Note HNO ID: [id number] Author: Gerri Gordillo Service: Pharmacy Author Type: ? Type: Plan of Care Filed: 12/05/2020 5:06 PM Note Text: PHARMACY BEDSIDE DELIVERY SERVICE Patient Name: Bhavna Kovacs The marked outpatient medications were Filled at: [facility] and delivered to the patient's bedside [...] 1 Ndle Commonly known as: BD Disposable [place] For use to withdraw testosterone Q2wks * [...] known as: EFFEXOR XR Gerri Gordillo PAGER: [phone] December 05, 2020 5:04 PM [facility] 12-05-2020 Note HNO ID: [id number] Author: Fortunato Langford MD Service: Neurology Adult Epilepsy Author Type: Fellow Type: Plan of Care Filed: 12/05/2020 11:54 AM Note Text: Plan of care epilepsy consult team Interval history: -Overnight, at 0 episode of side to side head shaking < 2 minutes, eyes were closed without loss of consciousness. -Seen today, stable, he reports he is being weaned from Dilantin (Current dose 100 mg OD from 300 OD), He is currently on LTG 50 BID. -Patient had a previous admission on 11/2019 at [facility] and diagnosed with PNES (was not admitted on any AEDs). DATA: -12/05/2020 03:37:00 - 12/05/2020 10:47:00: No epileptiform discharges or EEG seizures were recorded. Summary: 20 year old with a medical history of PNES (previously diagnosed at [facility] in 11/2019 with normal EEG) who was [...] further evaluation. Fortunato Langford MD Epilepsy fellow [facility] 12-05-2020 Note HNO ID: [id number] Author: CHEYENNE Sewell Service: Care Management Author Type: Kiln Firer Type: Care Mgt Progress Note Filed: 12/05/2020 [...] planning services during this admission, please call [phone]. CHEYENNE Sewell December 05, 2020 10:46 AM SIGNATURE: CHEYENNE Sewell PATIENT NAME: Bhavna Kovacs DATE: December 05, 2020 TIME: 10:46 AM PAGER/CONTACT #: [phone] [facility] 12-05-2020 Note HNO ID: [id number] Author: Veto Looney MD Service: Plastic Surgery [...] December 05, 2020 TIME: 6:17 AM PAGER: [phone] After 6PM AND on weekends, please page [phone] (Plastic Surgery on-call) [facility] 12-05-2020 Note HNO ID: [id number] Author: Veto Looney MD Service: Plastic Surgery [...] ordered - Continue telemtry - [facility] consult for history of PNES - Appreciate epilepsy recs Veto Looney MD PGY-1 Plastic Surgery P: [phone] December 04, 2020 10:42 PM After 6PM AND on weekends, please page [phone] (Plastic Surgery on-call) [facility] 12-05-2020 Note HNO ID: [id number] Author: Kirsten Landis APRN.MEASUREMENT SPECIALIST Service: Neurology Adult Epilepsy Author Type: Nurse [...] exam, no focal deficits. Discussed with staff biodiesel production technician, would recommend EEG to capture episode as it has occurred twice now. Continue home seizure medications. Would recommend for patient to be evaluated by psych/social work given history of PNES. Kirsten Landis NP Pager: [phone] [facility] 12-04-2020 Note HNO ID: [id number] Author: Linnea Leslie DO Service: Plastic Surgery [...] the patient overnight. [place]y/[place] [phone] if patient has additional seizures. Plastic surgery biodiesel production technician () was notified and patient was examined together [place]. [place] [phone]. Kristen Leslie PGY2 plastic surgery [id number] [facility] 11-26-2020 Note HNO ID: [id number] Author: Tamiko Morin MD Service: ? Author [...] Past Histories independently gathered by the clinical client support coordinator and the remaining scribed note accurately describes my personal service to the patient. Tamiko Morin MD [facility] 11-26-2020 Note HNO ID: [id number] Author: Madeline Denney LPN Service: ? Author Type: ? Type: Progress Notes Filed: 11/26/2020 2:12 PM Note Text: Correspondence received from Dr. Marr and [employer]. See scanned documents. [facility] 11-25-2020 Note HNO ID: [id number] Author: Madeline Denney LPN Service: ? Author Type: ? Type: Progress Notes Filed: 11/25/2020 1:58 PM Note Text: Request for neurology optimization faxed to [phone], Dr. Marr. Scheduled for bl mastectomy 12/04/20. Request for recent echo faxed to [facility] as well. [facility] 12-05-2019 History of Past i llness Narrative Problem Noted Date Resolved Date Acute post-traumatic headache, not intractable 0 12/05/2019 12/11/2019 Last Assessment & Plan: Assessment: Present on admission following seizure related fall yesterday with head strike. Endorses 6/10 throbbing headache on admission. No photo/phonophobia, change in vision, nausea or vomiting. Physical exam unremarkable. CT head without contrast + bone sequence completed on 12/04/2019 WNL PLAN: - Treat symptomatically. documented as of this encounter (statuses as of 04/09/2022) [facility] noteNo assessment information availableC[facility] Work Phone: Evaluation note* Diagnosis Seizure (HCC) Other convulsions documented in this [facility]* Diagnosis Right kidney stone- Primary [facility] Diagnosis Intractable complex partial epilepsy (CMS/HCC)- Primary Cervical radiculopathy Brachial neuritis or radiculitis nos Insomnia due to medical condition Organic insomnia, unspecified Migraine without aura and without status migrainosus, not intractable (CMS/HCC) Memory loss Neck pain Cervicalgia Cervical paraspinal muscle spasm Spasm of muscle [facility] Diagnosis Right kidney stone- Primary Chronic bilateral low back pain with bilateral sciatica Cyst of left ovary Other and unspecified ovarian cyst Gross hematuria [facility]* Diagnosis Low back pain, unspecified back pain laterality, unspecified chronicity, unspecified whether sciatica present- Primary [facility]* Diagnosis Neck pain- Primary Cervicalgia documented [facility]* Diagnosis Right kidney stone Irregular menstrual cycle- Primary Cyst of left ovary Other and unspecified ovarian cyst documented [facility]* Diagnosis Right kidney stone Encounter for initial prescription of implantable subdermal contraceptive- Primary [facility]* Diagnosis Right kidney stone Muscle spasm- Primary Spasm of muscle Chronic bilateral low back pain, unspecified whether sciatica present [facility] Diagnosis Seizure-like activity (HCC)- Primary Other convulsions [facility] Additional Instructions If your symptoms return/worsen or you develop any further concerns or symptoms please see your doctor or return to the emergency department immediately.[facility] Work Phone: Hospital Discharge instructions Additional Instructions Follow-up with primary care doctor Return to ED if develop worsening symptoms or concernsMarietta [facility] Work Phone: Hospital Discharge instructionsC[facility] Work Phone: Hospital Discharge instructions Additional Instructions Continue current medsM[facility] Work Phone: Hospital Discharge instructions Additional [...] of breath, abdominal pain, urinary complaints, nausea, vomiting.[facility] Work Phone: Hospital Discharge instructions Additional Instructions If your symptoms return/worsen or you develop any further concerns or symptoms please see your doctor or return to the emergency department immediately. Please be sure to follow-up with your neurologist.[facility] Work Phone: Hospital Discharge instructions Additional Instructions Continue your medication as prescribed Increase oral fluids Follow-up with your neurologist Return to the ER for uncontrolled seizures seizures lasting longer than 5 minutes fever or any other concernsCleveland Clinic [facility] Work Phone: InstructionsNot on filedocumented in this encounter [facility] filedocumented in this encounter [facility]ructionsNot on filedocumented in this encounter [facility]ructionsNot on filedocumented in this encounter [facility]ructionsNot on filedocumented in this encounter [facility]ructionsNot on filedocumented in this encounter [facility] SystemInstructionsNot on filedocumented in this encounter [facility] SystemReason for referral (narrative)* Consultation (Routine) - Pending Review Specialty Diagnoses / Procedures Referred By Contac t Referred To Contact Obstetrics and Gynecology Diagnoses Cyst of left ovary Enriqueta Tse PA [address] [place] [phone] [facility] [address] [place] [address] Referral ID Status Reason Start Date Expiration Date Visits Requested Visits Authorized [id number] Pending Review Specialty Services Required 09/07/2023 09/06/2024 1 1 * Consultation (Routine) - Pending Review Specialty Diagnoses / Procedures Referred By Contac t Referred To Contact Spine Care Diagnoses Chronic bilateral low back pain with bilateral sciatica Enriqueta Tse PA [address] [place] [id number] [facility] [address] [place] [id number] Referral ID Status Reason Start Date Expiration Date V isits Requested Visits Authorized [id number] Pending Review 09/07/2023 09/06/2024 1 1 [facility] Summary Purpose Family History No Family History Records Found Relationship Condition Age at Onset Recorded Date/T nain Not Specified No pertinent family history Unknown Advance Directives No Advanced Directives Records Found Advance Directive Response Recorded Date/ Time Advance Directives Yes January 05 1:48pm Documents on File Type Date Recorded 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 Expl anation Advance Directive(s) 11/25/2020 10:24 AM Advance Directive Response Recorded Date/ Time Advance Directives Yes January 05 12:48pm Latest Code Status on File Code Status Date Activated Date Inactivated Comments Full Code 07/17/2017 5:41 AM 07/17/2017 8:14 PM Advance Directive Response Recorded Date/ Time Advance Directives Yes October 20, 1:02pm Advance Directive Response Recorded Date/ Time Advance Directives Yes October 20, 2 023 12:02pm Latest Code Status on File Code Status Date Activated Date Inactivated Comments Full Code 08/26/2023 2:31 AM 08/26/2023 4:26 PM Code Status History Code Status Date Activated Date Inactivated Comments Full Code 08/25/2023 6:03 PM 08/26/2023 12:43 AM Latest Code Status on File Code Status Date Activated Date Inactivated Comments Full Code 08/26/2023 2:31 AM 08/26/2023 4:26 PM Code Status History Code Status Date Activated Date Inactivated Comments Full Code 08/25/2023 6:03 PM 08/26/2023 12:43 AM Latest Code Status on File Code Status Date Activated Date Inactivated Comments Full Code 07/17/2017 5:41 AM 07/17/2017 8:14 PM Chief Complaint and Reason for Visit Chief [...] Referral Specialty Diagnoses / Procedures Referred By Carlos A t Referred To Contact Neurology Diagnoses Seizure (HCC) Davidson Ortez MD [address] [place] [address] Caleb Easton MD [address] [place] [address] Referral ID Status Reason Start Date Expiration Date V isits Requested Visits Authorized [id number] Open Specialty Services Required 02/06/2023 08/05/2023 1 1 Question Answer Reason For External Referral? Patient Preference My clinical question is: Evaluation of seizure d/o vs PNES Comments The patient can be scheduled with any member of the group, including the provider with the first available appointments. Specialty Diagnoses / Procedures Referred By Contac t Referred To Contact Diagnoses Intractable complex partial epilepsy (CMS/HCC) Lavonne Davies NP [address] [place] [address] Referral ID Status Reason Start Date Expiration Date Visits Re quested Visits Authorized [id number] Closed 1 1 Specialty Diagnoses / Procedures Referred By Carlos A t Referred To Contact Rehabilitation Diagnoses Chronic bilateral low back pain with bilateral sciatica Muscle spasm Sarah Rice, CARDIAC NURSE SPECIALIST-MEASUREMENT SPECIALIST [address] [facility] [address] [place] [address] Referral ID Status Reason Start Date Expiration Date Visits Requested Visits Authorized [id number] Pending Review Specialty Services Required 09/20/2023 03/22/2024 1 1 Additional Source Comments INFORMATION SOURCE (unrecogn ized section and content) DATE CREATED AUTHOR 09/02/2018 [facility] DATE CREATED AUTHOR AUTHOR'S ORGANIZ ATION 10/20/2018 [facility] DATE CREATED AUTHOR AUTHOR'S ORGANIZ ATION 03/24/2021 [facility] DATE CREATED AUTHOR AUTHOR'S ORGANIZ ATION 09/16/2021 [facility] DATE CREATED AUTHOR AUTHOR'S ORGANIZ ATION 09/17/2021 [facility] DATE CREATED AUTHOR AUTHOR'S ORGANIZ ATION 09/28/2022 [facility] DATE CREATED AUTHOR AUTHOR'S ORGANIZ ATION 02/06/2023 [facility] DATE CREATED AUTHOR AUTHOR'S ORGANIZ ATION 09/28/2023 [facility] DATE CREATED AUTHOR AUTHOR'S ORGANIZ ATION 10/12/2023 [facility] DATE CREATED AUTHOR AUTHOR'S ORGANIZ ATION 12/01/2023 [facility] DATE CREATED AUTHOR AUTHOR'S ORGANIZ ATION 12/02/2023 [facility] DATE CREATED AUTHOR AUTHOR'S ORGANIZ ATION 12/10/2023 [facility] DATE CREATED AUTHOR AUTHOR'S ORGANIZ ATION 12/10/2023 [facility] DATE CREATED AUTHOR AUTHOR'S ORGANIZ ATION 12/15/2023 [facility] DATE CREATED AUTHOR AUTHOR'S ORGANIZ ATION 12/17/2023 [facility] Care Teams (unrecognized sec tion and content) Team Status: Inactive Member Role Status Dates Tommy Bowen , DO Emergency Provider Active Eric French , DO Primary Care Provider Active Team Status: Inactive Member Role Status Eric French , DO Primary Care Provider Active Bobby Gallagher , DO Emergency Provider Active Team Status: Inactive Member Role Status Eric Gillian , DO Primary Care Provider Active Roberto Whittaker , DO Emergency Provider Active Team Status: Inactive Member Role Status Eric Gillian , DO Primary Care Provider Active Luz Fiore , DO Emergency Provider Active Team Status: Active Member Role Status Eric Gillian , DO Primary Care Provider Active Team Status: Inactive Member Role Status Eric Gillian , DO Primary Care Provider Active Los Mcnally , DO Emergency Provider Active Team Status: Inactive Member Role Status Eric Gillian , DO Primary Care Provider Active Mario Alberto Jose MD Emergency Provider Active Mud Jack Operator Relationship Specialty Start Date End Date Eric French Tony Sr[address] [place] [address] PCP - General Family Medicine 03/29/19 Team Status: Inactive Member Role Status Dates Luz Fiore , DO Emergency Provider Active Eric Gillian , DO Primary Care Provider Active Brandon Verde , DO RES Active Team Status: Inactive Member Role Status Dates Los Mcnally , DO Emergency Provider Active Eric Gillian , DO Primary Care Provider Active Aman Cortes , DO RES Active Team Status: Inactive Member Role Status Eric Gillian , DO Primary Care Provider Active Attila Nleson , DO Emergency Provider Active Team Status: Inactive Member Role Status Roberto Whittaker , DO Emergency Provider Active Eric Gillian , DO Primary Care Provider Active Team Status: Inactive Member Role Status Dates Shanelle Bowen PA-C Emergency Provider Active Eric Gillian , DO Primary Care Provider Active Team Status: Inactive Member Role Status Eric Gillian , DO Primary Care Provider Active Federica Wolfe , [facility] Emergency Provider Active Mud Jack Operator Relationship Specialty Start Date End Date Eric French Krystian Sr., DO [address] [place] [address] PCP - [facility] Family Medicine 07/17/17 Team Status: Inactive Member Role Status Eric French , DO Primary Care Provider Active Margarita Gallo [...] Active NON STAFF Primary Care Provider Active Mud Jack Operator Relationship Specialty Start Date End Date Eric French DO [address] [place] [address] PCP - General Family Medicine 03/12/20 Mud Jack Operator Relationship Specialty Start Date End Date Eric French DO [address] [place] [address] PCP - General Family Medicine 03/12/20 Mud Jack Operator Relationship Specialty Start Date End Date Eric French MD [address] [place] [address] PCP - General Family Medicine 02/11/23 Mud Jack Operator Relationship Specialty Start Date End Date Eric French DO [address] [place] [address] PCP - General Family Medicine 03/12/20 Mud Jack Operator Relationship Specialty Start Date End Date Eric French DO [address] [place] [address] PCP - General Family Medicine 03/12/20 Mud Jack Operator Relationship Specialty Start Date End Date Eric French DO [address] [place] [address] PCP - General Family Medicine 03/12/20 Mud Jack Operator Relationship Specialty Start Date End Date Eric French DO [address] [place] [address] PCP - General Family Medicine 03/12/20 Mud Jack Operator Relationship Specialty Start Date End Date Eric French DO [address] [place] [address] PCP - General Family Medicine 03/12/20 Mud Jack Operator Relationship Specialty Start Date End Date Eric French DO [address] [place] [address] PCP - General Family Medicine 03/12/20 Mud Jack Operator Relationship Specialty Start Date End Date Eric French DO [address] [place] [address] PCP - General Family Medicine 03/12/20 Mud Jack Operator Relationship Specialty Start Date End Date Eric French DO [address] [place] [address] PCP - General Family Medicine 03/12/20 Mud Jack Operator Relationship Specialty Start Date End Date Eric French DO [address] [place] [address] PCP - General Family Medicine 03/12/20 Mud Jack Operator Relationship Specialty Start Date End Date Eric French Sr., DO [address] [place] [address] PCP - General Family Medicine 07/17/17 Mud Jack Operator Relationship Specialty Start Date End Date Eric French Sr., DO [address] [place] [address] PCP - General Family Medicine 07/17/17 Goals (unrecognized section and content) Goals may [...] alternate sectionNot on filedocumented as of this encounterNot on filedocumented as of this encounterNot on filedocumented as of this encounter Source Comments (unrecognize d section and content) In the event this informatio n is protected by the Federal Confidentiality of Alcohol and Drug Abuse Patient Records regulations: The Federal rules restrict any use of the information to criminally investigate or prosecute any alcohol or drug abuse patient.[facility] Reason for Visit (unrecogniz ed section and content) Reason Comments Seizures Pt has hx of epileps y, pt has had 14 seizures today Reason Comments Follow-up Pt is here for consu lt on ovarian cyst. Specialty Diagnoses / Procedures Referred By Carlos A boyle Referred To Contact Obstetrics and Gynecology Diagnoses Cyst of left ovary Enriqueta Tse PA [address] [place] [address] [facility] [address] [place] [address] Referral ID Status Reason Start Date Expiration Date V isits Requested Visits Authorized [id number] Closed Specialty Services Required 09/07/2023 09/06/2024 1 1 Reason Comments Contraception Reason Comments Consult New patient , lumbar , x-rays Specialty Diagnoses / Procedures Referred By Carlos A boyle Referred To Contact Spine Care Diagnoses Chronic bilateral low back pain with bilateral sciatica Enriqueta Tse PA [address] [place] [address] [facility] [address] [place] [id number] Referral ID Status Reason Start Date Expiration Date V isits Requested Visits Authorized [id number] Pending Review 09/07/2023 09/06/2024 1 1 Reason Comments Seizures Hx of was just admit manjula to [facility] for seizures sent to [facility], had 2 seizures there, on 3 different meds took all meds today Head Injury Hit head on left reina e, Ordered Prescriptions (unrec ognized section and content) [...] 1,000 mg, IntraVENous, ONCE, 1 dose, On [place] 02/06/23 at 1715 1716 (New Bag - Prov ider: Jace Andrade RN)1833 (Stopped - Provider: Ama Power RN) Scheduled Medication Order 11/29/2023 11/30/2023 12/01/2023 ondansetron (ZOFRAN) injection 4 mg (COMPLETED) 4 mg, IntraVENous, ONCE, 1 dose, On [place] 12/01/23 at 1700 1706 (Given - Provid er: Aleksander Henao RN) phenytoin (DILANTIN) 1,000 mg in sodium chloride 0.9 % 100 mL IVPB (loading dose) (COMPLETED) 1,000 mg (23.5 mg/kg), IntraVENous, at 100 mL/hr, Administer over 60 Minutes, ONCE, On [place] 12/01/23 at 1700, For 1 dose, Administer directly into a large peripheral or central vein through a large-gauge catheter. Must be administered with an in-line 0.22 micron filter. Flush IV line with Normal Saline before and after administration. 1708 (New Bag - Prov ider: Aleksander Henao RN)1808 (Stopped - Provider: Aleksander Henao RN) sodium chloride 0.9 % bolus 1,000 mL (COMPLETED) 1,000 mL (23.5 mL/kg), IntraVENous, at 1,000 mL/hr, Administer over 1 Hours, ONCE, On [place] 12/01/23 at 1700, For 1 dose 1706 (New Bag - Prov ider: Aleksander Henao RN)1806 (Stopped - Provider: Aleksander Henao RN) FOR RECORDS PERTAINING TO PATIENTS WHO [...] BE BASED ON THE PRIMARY CLINICAL RECORDS. [employer] provides no warranty or guarantee of the accuracy or completeness of information in this document.
--- NOTE | 2023-12-17 13:13 | ED_ITS ---
HPI HPI - General Adult General Chief complaint: Abdominal Pain Stated complaint: ABDOMINAL PAIN Time Seen by Provider: 12/17/23 13:12 Source: patient Mode of arrival: walk-in Limitations: no limitations History of Present Illness HPI narrative: This patient is here complaining of constipation. They have tried [id number] her stool softeners and MiraLAX without any effect. There is no vomiting. There is no passing any liquid stool. Patient is not on any new antibiotics but the dose of Lamictal was recently increased after a hospitalization at a tertiary care center in [place]. The patient has been referred to a air analysis engineering technician by the primary care doctor Dr. Isbell. Patient's seizure disorder is being taken care of by the neurology group Dr. Easton. Related Data Home Medications ?Medication ?Instructions ?Recorded ?Confirmed lamotrigine 100 mg tablet 100 mg PO BID 01/01/23 11/24/23 (Lamictal) brivaracetam 50 mg tablet 100 mg PO Q12H 08/23/23 11/24/23 (Briviact) clobazam 10 mg tablet 10 mg PO .qhs 08/23/23 11/24/23 midazolam 5 mg/spray (0.1 mL) 1 spray intranasal PRN PRN FOR 08/24/23 11/24/23 nasal spray (Nayzilam) SEIZURES Allergies Allergy/AdvReac Type Severity Reaction Status Date / Time codeine Allergy Unknown Verified 11/24/23 16:48 Opioid HPI Opioid Management Most Recent Opioid Data: Last Pain Scale 7 07/29/23 09:45 Last ED Pain Assessment 12/17/23 14:07 Ur Phencyclidine Scrn Negative (NEGATIVE) 01/30/23 18:34 PFSH PFSH Social History Smoking status: Current every day smoker Exam Narrative Exam Narrative: Awake alert no apparent distress Vitals: Signs are stable not moving about uncomfortably on the room. Examination abdomen there is no surgical incisions. There is no sign splenomegaly or hepatomegaly. There is no guarding rebound rigidity or peritoneal findings. There is no suprapubic discomfort. Constitutional Vital Signs, click to edit/add: Last Vital Signs Temp 98.1 F 12/17/23 13:09 Pulse 62 12/17/23 13:09 Resp 18 12/17/23 13:09 BP 103/78 12/17/23 13:09 Pulse Ox 98 12/17/23 13:09 O2 Del Method Room Air 12/17/23 13:09 Course Vital Signs Vital signs: Vital Signs Temperature 98.1 F 12/17/23 13:09 Pulse Rate 62 12/17/23 13:09 Respiratory Rate 18 12/17/23 13:09 Blood Pressure 103/78 12/17/23 13:09 Pulse Oximetry 98 12/17/23 13:09 Oxygen Delivery Method Room Air 12/17/23 13:09 Temperature 98.1 F 12/17/23 13:09 Pulse Rate 62 12/17/23 13:09 Respiratory Rate 18 12/17/23 13:09 Blood Pressure 103/78 12/17/23 13:09 Pulse Oximetry 98 12/17/23 13:09 Oxygen Delivery Method Room Air 12/17/23 13:09 Medical Decision Making MDM Narrative Medical decision making narrative: This patient has a benign exam and is under the care of local physicians. Abdominal series x-ray confirms a large stool bolus in the rectum. We will offer him impact disimpaction and or magnesium citrate orally. Discharge Plan Discharge Stand Alone Forms: Portal Instructions Chief Complaint: Abdominal Pain Clinical Impression: Constipation Patient Disposition: Home, Self-Care Time of Disposition Decision: 14:11 Prescriptions / Home Meds: No Action Briviact 50 mg tablet 100 mg PO Q12H clobazam 10 mg tablet 10 mg PO .qhs Nayzilam 5 mg/spray (0.1 mL) spray,non-aerosol 1 spray INTRANASAL PRN PRN (Reason: FOR SEIZURES) lamotrigine [Lamictal] 100 mg tablet 100 mg PO BID Print Language: Indonesian Additional Instructions: Magnesium citrate as needed for constipation. Follow-up with GI doctor as you have planned Referrals: Physician,Non-Staff, MD [Primary Care Provider] - 1 week
--- NOTE | 2023-12-17 13:47 | XR_ITS ---
The [address] [address] Patient Name: BHAVNA VILLAR MRN: [id number] date: 2000 Sex: F Assigned Patient Location: ER Current Patient Location: ED.MAIN Accession/Order Number: [id number] Exam Date: 12/17/2023 13:55 Report Date: 12/17/2023 14:37 At the request of: JACK ANGELO Procedure: XR acute abdomen series EXAM: XR acute abdomen series HISTORY: Abdominal pain COMPARISON: 09/23/2022. TECHNIQUE: Upright chest x-ray. Flat and upright abdomen FINDINGS: Chest x-ray demonstrates clear lungs, normal heart size and mediastinum. No pleural effusion or pneumothorax. Loop recorder device projects over the left chest. Abdominal films demonstrate large amount of gas and stool throughout the colon which is distended. Stool most prominent in the ascending to mid transverse colon, left lower quadrant distal descending colon and rectum. Large amount of gas elsewhere. Correlate for constipation. No small bowel or gastric distention seen. Soft tissues unremarkable. No calcification seen. XR/XR acute abdomen series IMPRESSION: 1. Chest x-ray no acute disease. 2. Large amount of gas and stool throughout the colon, correlate for constipation. Electronically authenticated by: JER ALEGRE Date: 12/17/2023 14:37
[2023-12-17] MEDS: MAGNESIUM CITRATE 296 ML SOLUTION PO (15:41)
[2023-12-17 15:43] VITALS: BP 117/82; PULSE 78; O2SAT 100
== END 2023-12-17 15:45 | disposition home or self-care (01) ==
PROVIDERS: Emergency Provider Emergency Medicine Emergency Medical Services
DX: K59.00 Constipation, unspecified (principal); G40.802 Other epilepsy, not intractable, without status epilepticus; F17.200 Nicotine dependence, unspecified, uncomplicated
CPT/HCPCS: 74022; 99283

== ENCOUNTER 2024-01-28 21:59 | Emergency (ER) | payer OTHER, SELFPAY ==
--- NOTE | 2024-01-28 22:00 | ECG_ITS ---
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
[2024-01-28 22:02] VITALS: BP 126/84; PULSE 91; TEMP 37; O2SAT 100; BMI 17.7
--- NOTE | 2024-01-28 22:10 | CT_ITS ---
The [address] [address] Patient Name: BHAVNA VILLAR MRN: [id number] date: 2000 Sex: F Assigned Patient Location: ED.MAIN Current Patient Location: ER Accession/Order Number: [id number] Exam Date: 01/28/2024 22:34 Report Date: 01/28/2024 23:10 At the request of: DEO GARNETT Procedure: CT cervical spine wo con EXAM: CT head/brain wo con, CT cervical spine wo con HISTORY: trauma COMPARISON: October 2023 TECHNIQUE: FINDINGS: The ventricles are normal in size, configuration, and position for age. There is no intra- or extra-axial mass, hemorrhage, or fluid collection. No areas of abnormal mass effect or attenuation are noted. Visualized paranasal sinuses are free of mucosal disease. No depressed calvarial fracture. Reversal of normal cervical lordosis, nonspecific. Vertebral height and alignment is otherwise preserved. No acute fracture or subluxation. The atlanto occipital joint is maintained. The odontoid and lateral masses are intact. No significant degenerative changes of the cervical spine. The prevertebral soft tissues are within normal limits. The adjacent structures appear intact. The visualized soft tissues of the neck are normal. CT/CT cervical spine wo con IMPRESSION: No acute intracranial abnormality. No findings of acute cervical spine fracture. Electronically authenticated by: MARIO ALBERTO IGLESIAS Date: 01/28/2024 23:10
--- NOTE | 2024-01-28 22:10 | CT_ITS ---
The [address] [address] Patient Name: BHAVNA VILLAR MRN: [id number] date: 2000 Sex: F Assigned Patient Location: ED.MAIN Current Patient Location: ER Accession/Order Number: [id number] Exam Date: 01/28/2024 22:34 Report Date: 01/28/2024 23:10 At the request of: DEO GARNETT Procedure: CT head/brain wo con EXAM: CT head/brain wo con, CT cervical spine wo con HISTORY: trauma COMPARISON: October 2023 TECHNIQUE: FINDINGS: The ventricles are normal in size, configuration, and position for age. There is no intra- or extra-axial mass, hemorrhage, or fluid collection. No areas of abnormal mass effect or attenuation are noted. Visualized paranasal sinuses are free of mucosal disease. No depressed calvarial fracture. Reversal of normal cervical lordosis, nonspecific. Vertebral height and alignment is otherwise preserved. No acute fracture or subluxation. The atlanto occipital joint is maintained. The odontoid and lateral masses are intact. No significant degenerative changes of the cervical spine. The prevertebral soft tissues are within normal limits. The adjacent structures appear intact. The visualized soft tissues of the neck are normal. CT/CT head/brain wo con IMPRESSION: No acute intracranial abnormality. No findings of acute cervical spine fracture. Electronically authenticated by: MARIO ALBERTO IGLESIAS Date: 01/28/2024 23:10
--- NOTE | 2024-01-28 22:11 | ED.GENADUL1 ---
HPI HPI - General Adult General Chief complaint: Syncope Stated complaint: SEIZURE Time Seen by Provider: 01/28/24 22:06 Source: patient Mode of arrival: ambulance Limitations: no limitations History of Present Illness HPI narrative: past history of seizure disorder since at least age 16. States it is not clear why he has them. States they are now less frequent. Last seizure was about 2 months ago. Witnessed seizure tonight that lasted a few seconds. No reported post ictal state. Reportedly fell back in the kitchen striking the back of his head. Complains of head and neck pain. Denies extremity weakness. No dizziness or nausea Related Data Home Medications ?Medication ?Instructions ?Recorded ?Confirmed lamotrigine 100 mg tablet 100 mg PO BID 01/01/23 01/28/24 (Lamictal) brivaracetam 50 mg tablet 100 mg PO Q12H 08/23/23 01/28/24 (Briviact) clobazam 10 mg tablet 10 mg PO .qhs 08/23/23 01/28/24 midazolam 5 mg/spray (0.1 mL) 1 spray intranasal PRN PRN FOR 08/24/23 01/28/24 nasal spray (Nayzilam) SEIZURES atomoxetine 40 mg capsule 40 mg PO DAILY 01/28/24 01/28/24 erenumab-aooe 140 mg/mL 140 mg subcut .every 28 days 01/28/24 01/28/24 subcutaneous auto-injector (Aimovig Autoinjector) metoprolol succinate 25 mg 25 mg PO DAILY 01/28/24 01/28/24 tablet,extended release 24 hr midodrine 10 mg tablet 10 mg PO TID 01/28/24 01/28/24 sumatriptan succinate 100 mg tablet 100 mg PO PRN migraine headache 01/28/24 trazodone 100 mg tablet 100 mg PO .HS 01/28/24 01/28/24 ubrogepant 100 mg tablet (Ubrelvy) 100 mg PO PRN migraine headache 01/28/24 Allergies Allergy/AdvReac Type Severity Reaction Status Date / Time codeine Allergy Unknown Rash Verified 01/28/24 22:06 Opioid HPI Opioid Management Most Recent Opioid Data: Last Pain Scale 7 07/29/23 09:45 Ur Phencyclidine Scrn Negative (NEGATIVE) 01/30/23 18:34 Review of Systems ROS Status of ROS 10 or more systems reviewed and unremarkable except as noted in history and below [facility] Social History Smoking status: Current every day smoker Exam Constitutional Vital Signs, click to edit/add: Last Vital Signs Temp 98.6 F 01/28/24 22:02 Pulse 91 H 01/28/24 22:02 Resp 16 01/28/24 22:02 BP 126/84 01/28/24 22:02 Pulse Ox 100 01/28/24 22:02 O2 Del Method Room Air 01/28/24 22:02 Common normals: no apparent distress, average body habitus, oriented x3, no limitations, healthy appearing, alert and well nourished [place] Common normals: normocephalic and head/scalp atraumatic Eye Common normals: PERRL, EOMs intact bilaterally and conjunctivae normal Respiratory Common normals: normal respiratory effort, no retractions, no use of accessory muscles and clear to auscultation bilaterally Cardio Common normals: regular rate, regular rhythm, S1 normal heart sound and S2 normal heart sound GI Common normals: Normal to inspection, nondistended, normoactive bowel sounds present, soft to palpation and non-tender Extremity Common normals: normal to inspection and full ROM Neuro Common normals: oriented x3, CN's II-XII intact bilaterally, moves all extremities and no focal motor deficits Psych Appearance: grossly normal Course Vital Signs Vital signs: Vital Signs Temperature 98.6 F 01/28/24 22:02 Pulse Rate 91 H 01/28/24 22:02 Respiratory Rate 16 01/28/24 22:02 Blood Pressure 126/84 01/28/24 22:02 Pulse Oximetry 100 01/28/24 22:02 Oxygen Delivery Method Room Air 01/28/24 22:02 Temperature 98.6 F 01/28/24 22:02 Pulse Rate 91 H 01/28/24 22:02 Respiratory Rate 16 01/28/24 22:02 Blood Pressure 126/84 01/28/24 22:02 Pulse Oximetry 100 01/28/24 22:02 Oxygen Delivery Method Room Air 01/28/24 22:02 Medical Decision Making MDM Narrative Medical decision making narrative: patient has known seizure disorder. Followed by neurology. Last seizure 2 months ago. Short lasting seizure tonight. Fell back striking his head. Complains of headache and neck pain. Scalp exam neg. No post ictal state. CT brain and C-spine normal. labs unremarkable. Patient awake and resting comfortably . Discharged home Lab Data Labs: Lab Results 01/28/24 Range/Units 23:18 WBC 8.0 (4.0-11.0) 10^3/uL RBC 4.21 (4.20-5.40) 10^6/uL Hgb 12.6 (12.0-16.0) g/dL Hct 37.5 (36.0-48.0) % MCV 89.1 (81.0-99.0) fL MCH 29.9 (26.7-34.0) pg MCHC 33.6 (29.9-35.2) g/dL RDW 13.2 (11.0-15.0) % Plt Count 130 L (150-450) 10^3/uL MPV 10.4 (9.5-13.5) fL Neut % (Auto) 53.9 (43.0-75.0) % Lymph % (Auto) 38.2 (20.5-60.0) % [place] % (Auto) 6.2 (1.7-12.0) % Eos % (Auto) 1.0 (0.9-7.0) % Baso % (Auto) 0.4 (0.2-2.0) % Neut # (Auto) 4.3 (1.4-6.5) 10^3/uL Lymph # (Auto) 3.0 (1.2-3.8) 10^3/uL [place] # (Auto) 0.5 (0.3-0.8) 10^3/uL Eos # (Auto) 0.1 (0.0-0.7) 10^3/uL Baso # (Auto) 0.0 (0.0-0.1) 10^3/uL Abs Immat Gran (auto) 0.02 (0.00-0.03) 10^3/uL Imm/Tot Granulo (auto) 0.3 (0.0-0.5) % Sodium 136 (136-145) mmol/L Potassium 3.6 (3.5-5.1) mmol/L Chloride 102 (98-107) mmol/L Carbon Dioxide 28.3 (21.0-32.0) mmol/L Anion Gap 9.3 BUN 9.0 (7.0-18.0) mg/dL Creatinine 0.74 (0.55-1.02) mg/dL Est GFR ( Amer) >60 (>=60) Est GFR (Non-Af Amer) >60 (>=60) BUN/Creatinine Ratio 12.2 Glucose 86 (74-106) mg/dL Lactate 0.8 (0.4-2.0) mmol/L Calcium 8.8 (8.5-10.1) mg/dL Total Bilirubin 0.5 (0.2-1.0) mg/dL AST 16 (15-37) U/L ALT 14 (14-59) U/L Alkaline Phosphatase 59 (46-116) U/L Total Protein 6.9 (6.4-8.2) g/dL Albumin 3.8 (3.4-5.0) g/dL Globulin 3.1 g/dL Albumin/Globulin Ratio 1.2 Discharge Plan Discharge Stand Alone Forms: Portal Instructions Chief Complaint: Syncope Clinical Impression: Seizure Patient Disposition: Home, Self-Care Prescriptions / Home Meds: No Action Briviact 50 mg tablet 100 mg PO Q12H clobazam 10 mg tablet 10 mg PO .qhs Nayzilam 5 mg/spray (0.1 mL) spray,non-aerosol 1 spray INTRANASAL PRN PRN (Reason: FOR SEIZURES) atomoxetine 40 mg capsule 40 mg PO DAILY Aimovig Autoinjector 140 mg/mL auto-injector 140 mg SUBCUT .every 28 days metoprolol succinate 25 mg tablet extended release 24 hr 25 mg PO DAILY midodrine 10 mg tablet 10 mg PO TID sumatriptan succinate 100 mg tablet 100 mg PO PRN (Reason: migraine headache) trazodone 100 mg tablet 100 mg PO .HS Ubrelvy 100 mg tablet 100 mg PO PRN (Reason: migraine headache) lamotrigine [Lamictal] 100 mg tablet 100 mg PO BID Print Language: [place] Instructions: Recurrent Seizures in Adults (ED) Additional Instructions: follow up with your neurologist tuesday Referrals: Physician,Non-Staff, MD [Primary Care Provider] - 1 week
--- OUTSIDE RECORDS SUMMARY | 2024-01-28 22:15 | XMS_ITS | CCD ---
Author Organization [facility] Care Team Providers Care Urban Renewal Manager Name Role Phone ALEXA SAHA Admitting Unavailable [...] Provider DO Luz Fiore Emergency Provider DO Roberto Whittaker Emergency Provider DO Tommy Bowen Emergency Provider DO Eric French Primary Care Provider DO [place] Emergency Provider MD Mario Alberto Jose Emergency Provider [phone] DO Luz Fiore Emergency Provider Corea Eric Sams Primary Care Provider DO Tommy Bowen Emergency Provider DO Eric French Primary Care Provider [phone] DO [place] Emergency Provider MD Mario Alberto Jose Emergency Provider [phone] DO Luz Fiore Emergency Provider DO [place] Emergency Provider DO Eric French Primary Care Provider Leslie DO Attila Anderson Emergency Provider House, DO Reyes Primary Care Provider [phone] Panfilo DO Roberto Espinosa Emergency Provider House, DO Reyes Primary Care Provider Nelson, DO Attila Anderson Emergency Provider Unavailab le Panfilo DO Roberto Espinosa Emergency Provider ZEYAD Bowen [facility] E Emergency Provider HOUSE, DR REYES Primary Care Unavailable TAMIR, [...] OSULLIVAN Consulting Unavailable DERROW, COSMO Consulting Unavailable APACHE JUNCTION, DR REYES Primary Care Unavailable MARKER ., DR CASTRO Consulting Unavailable MARKER ., DR CASTRO Admdevang Unavailable MARKER ., DR CASTRO Attending Unavailable DEBBIE BRITT Consulting Unavailable NAHUN SAMUELS Consulting Unavailable GILLIAN, DR REYES Primary Care Unavailable SOPHIE ., COLTEN Admitting Unavailable SOPHIE ., COLTEN Attending Unavailable DAMON, DR MARGARITA Frankel Consulting Unavailable SOPHIE ., COLTEN Consulting Unavailable LO TUTTLE Consulting Unavailable Corea Sr., Eric BUCKLEY Primary Care Provider APACHE JUNCTION ERIC LYONS Primary Care Unavailable DAVIDSON ORTEZ Attending Unavailable Corea, DO Reyes Primary Care Provider DO Luz Fiore Emergency Provider ZEYAD Rivera Emergency Provider [phone] Corea, DO Reyes Primary Care Provider DO Luz Fiore Emergency Provider ZEYAD Rivera Emergency Provider MD Mario Alberto Jose Emergency Provider NON STAFF Primary Care Provider Unavailabl e House DO, Reic P Primary Care Provider Eric French MD Primary Care Provider DEBBIE MCKEON Referring Unavailable HOUSE, ERIC P Primary Care Unavailable ÁNGEL POPE Admitting Unavailable ÁNGEL POPE Attending Unavailable DAVID RASMUSSEN Referring Unavailabl e HOUSE, ERIC P Primary Care Unavailable SHAWNEE CHIRINOS Referring Unavailable HOUSE, ERIC P Primary Care Unavailable SANTIO-JUÁREZ, PAIGE Referring Unavai lable HOUSE, ERIC P Primary Care Unavailable PROLOGO-JUÁREZLINSEY Referring Unavai lable HOUSE, ERIC P Primary Care Unavailable PROLOGO-JUÁREZ, PAIGE Referring Unavai lable HOUSE, ERIC P Primary Care Unavailable ROSALINE HARRIS Referring Unavailable HOUSE, ERIC P Primary Care [...] MCKEON Admitting Unavailable DEBBIE MCKEON Attending Unavailable DEBBIE MCKEON Referring Unavailable HOUSE, ERIC P Primary Care Unavailable DEBBIE MCKEON Attending Unavailable DEBBIE MCKEON Referring Unavailable HOUSE, ERIC P Primary Care Unavailable BEATA DODSON Admitting Unavailab BEATA Ferreira Attending Unavailab AUDREY Castellano Referring Unavailable HOUSE, ERIC P Primary Care Unavailable TEJ LIZARRAGA Consulting Unavailable JUDE PARRA Referring Unavailable HOUSE, ERIC P Primary Care Unavailable HOUSE SR, ERIC P Primary Care Unavailable EMILIA GEETAKRADHA Referring Unavailabl e EMILIA KHPAMELAK, RADHA Referring Unavailabl e HOUSE SR, ERIC P Primary Care Unavailable HOUSE SR, ERIC P Primary Care Unavailable AMAN TAPIA Attending Unavailable EMILIA REMY, RADHA Referring Unavailabl e HOUSE SR, ERIC P Primary Care Unavailable EMILIA GEETAK, RADHA Referring Unavailabl e HOUSE SR, ERIC P Primary Care Unavailable Nicole, Milton Anderson Attending Unavailable Nicole, Milton Anderson Admitting Unavailable House, Eric Primary Care Unavailable Damon, Mario Alberto Espinosa Attending Unavailable Damon, Mario Alberto Espinosa Admitting Unavailable NON STAFF Primary Care Unavailable Adebayo, Luz Attending Unavailable Adebayo, Luz Admitting Unavailable House, Eric Primary Care Unavailable NON STAFF Primary Care Unavailable Adebayo, Luz Attending Unavailable Adebayo, Luz Admitting Unavailable JESUS, ENRIQUETA I Attending Unavailable HOUSE, ERIC P Referring Unavailable HOUSE, ERIC P Primary Care Unavailable HOUSE, ERIC P Referring Unavailable HOUSE, ERIC P Primary Care Unavailable DARYA, NETTE Pitt Attending Unavailable JESUS, ENRIQUETA I Referring Unavailable HOUSE, ERIC P Primary Care Unavailable DARYA, NETTE L Attending Unavailable HOUSE, ERIC P Referring Unavailable HOUSE, ERIC P Primary Care Unavailable DWAYNE, SARAH Attending Unavailable JESUS, ENRIQUETA I Referring Unavailable HOUSE, ERIC P Primary Care Unavailable DWAYNE, SARAH Attending Unavailable HOUSE, ERIC P Referring Unavailable HOUSE, ERIC P Primary Care Unavailable HOUSE, ERIC P Referring Unavailable HOUSE, ERIC P Primary Care Unavailable DWAYNE, SARAH Attending Unavailable HOUSE, ERIC P Referring Unavailable [...] Unavailable HOUSE, ERIC P Primary Care Unavailable CANDIS, AHMAD Attending Unavailable CANDIS, AHMAD Referring Unavailable HOUSE, ERIC P Primary Care Unavailable JESUS, ENRIQUETA Osorio Referring Unavailable HOUSE, ERIC P Primary Care Unavailable JESUS, ENRIQUETA I Referring Unavailable HOUSE, ERIC P Primary Care Unavailable DARYA, NETTE Pitt Attending Unavailable DARYA, NETTE L Referring Unavailable HOUSE, ERIC P Primary Care Unavailable HOUSE, ERIC P Referring Unavailable HOUSE, ERIC P Primary Care Unavailable HOUSE, ERIC P Primary Care Unavailable FRANCISCO FIGUEREDO Attending Unavailable DWAYNE, SARAH Referring Unavailable HOUSE, ERIC P Primary Care Unavailable JESUS, ENRIQUETA I Referring Unavailable HOUSE, ERIC P Primary Care Unavailable ENRIQUETA TSE I Referring Unavailable HOUSE, ERIC P Primary Care Unavailable HOUSE, ERIC Krystian Primary Care Unavailable GUERO TORRES Attending Unavailable RITA, REA Referring Unavailable RITA, REA Referring Unavailable MARISOL, SWAPNA Referring Unavailable RITA, REA Referring Unavailable MARISOL, SWAPNA Attending Unavailable MARISOL, SWAPNA Attending Unavailable MARISOL, SWAPNA Attending Unavailable MARISOL, SWAPNA Referring Unavailable ISAIAS, AARON Referring Unavailable TAMIR, DEO Boyle Referring Unavailable NATALY, YOLIE Admitting Unavailable NATALY, YOLIE Attending Unavailable ISAIAS, AARON Admitting Unavailable ISAIAS, AARON Attending Unavailable BARAZI, LUIS FERNANDO Attending Unavailable ISAIAS, AARON Referring Unavailable RITA, REA Referring Unavailable RITA, REA Referring Unavailable Allergies Allergy Classification Reported Allergen(s) Allergy Type Date of Onset Reaction(s) Facility (20 sources) Codeine; Translations: [CODEINE] Drug Allergy 8 Hives [facility] Repository (17 sources) Codeine Drug Allergy 8 Hives, Itching [facility] Work Phone: (1 source) Codeine Drug Allergy 3 [facility] Repository Medications Current Medications Medication Drug Class(es) [...] 05/15/2024 Active take 2 tablets by mo [facility] in the morning, then take 2 tablets [...] Start: 07-27-2022 take 4 tablets by mo [facility] once daily in the morning Lamotrigine (Lamictal) [...] bedtime. 0 Active take 4 tablets by [facility] twice daily lamoTRIgine (LAMICTAL) 25 [...] mg/ml topical cream (2 sources) Retinoid Start: End: tretinoin (Retin-A) 0.025 % cream Indications: Acne [...] Discontinued 100 MG PO Twice daily 10 August 30, 2022 12:00am September 13, 2022 9:45am must administer with a meal/food 2 ml ondansetron 2 mg/ml injection (13 sources) Serotonin-3 Receptor Antagonist Start: 024 End: ondansetron (ZOFRAN) injection 4 mg Start: [...] (8 sources) Phenothiazine Start: 10-17-19 End: 09-19-19 promethazine (PHENERGAN) 25 mg suppository INSERT 1 [...] on above: Take 1 tablet by ketan three times daily. sertraline 25 mg oral [...] Problem Classification Problem Date Documented Date Episodic/Chronic Anxiety disorders (13 sources) Social phobia; Translations: [Social phobia, unspecified] Onset: 07-15-2017 12-05-2019 Chronic Cardiac dysrhythmias (4 sources) Intermittent palpitations; Translations: [Palpitations] Onset: 01-31-2023 02-11-2023 Episodic Conditions associated with dizziness or vertigo (4 sources) Lightheadedness; Translations: [Dizziness and giddiness] Onset: 02-01-2023 02-11-2023 Episodic Diabetes mellitus without complication (1 source) [...] hypokalemia; Translations: [Hypokalemia] Onset: 10-20-2021 07-10-2021 Episodic Headache; including migraine (4 sources) [...] 12-11-2019 Chronic Other aftercare (1 source) Other ad terminal makeup operator (current) drug therapy; Translations: [OTH ELECTRICAL TESTS SUPERVISOR CURRENT DRUG THERAPY] Onset: 09-27-2022 Episodic Other aftercare (1 source) intermediate frame tender (current) use of oral hypoglycemic drugs; Translations: [ELECTRICAL TESTS SUPERVISOR USE ORAL HYPOGLYCEMIC DX] Onset: 09-27-2022 Episodic Other connective tissue disease (4 sources) Spasm of cervical paraspinous muscle; Translations: [Other muscle spasm] Onset: 08-10-2023 08-10-2023 Episodic Other connective tissue disease (1 source) Spasm; Translations: [Other muscle spasm] 09-20-2023 Episodic Other lower respiratory disease (2 sources) Other forms of dyspnea; Translations: [Other forms of dyspnea] Onset: 02-01-2023 Episodic Other nervous system disorders (2 sources) Other chronic pain; Translations: [Other chronic pain] Onset: 09-07-2023 Chronic Residual codes; unclassified (4 sources) Insomnia co-occurrent [...] Translations: [Other amnesia] Onset: 08-10-2023 08-10-2023 Episodic Spondylosis; intervertebral disc disorders; other back problems (20 sources) Backache; Translations: [Dorsalgia, unspecified] Onset: 08-10-2023 07-10-2021 Episodic Syncope (2 sources) Syncope and collapse; Translations: [Syncope and collapse] Onset: 06-29-2023 Episodic Unclassified (2 sources) C/O POSSIBLE SEIZURE Onset: 07-20-2017 Unclassified (3 sources) Low back pain, unspecified; Translations: [Low back pain, unspecified] Onset: 09-20-2023 Unclassified (1 source) Seizure-like activity Onset: 08-26-2023 Unclassified (1 source) Consult Onset: 09-20-2023 Unclassified (1 source) Seizure - Prior Hx Of Onset: 01-06-2024 Unclassified (1 source) EMS Onset: 08-25-2023 Unclassified (1 source) Supraventricular tachycardia, unspecified; Translations: [...] pain; Translations: [Flank pain] Onset: 10-16-2021 Episodic Calculus of urinary tract (20 sources) Personal history of urinary calculi; Translations: [Calculus of kidney] Onset: 10-15-2021 05-12-2023 Episodic Contraceptive and procreative management (3 sources) Patient encounter status; Translations: [Encounter for initial prescription of implantable subdermal contraceptive] Onset: 09-19-2023 09-19-2023 Episodic Epilepsy; convulsions (20 sources) Neurological finding; Translations: [Unspecified convulsions] Onset: 08-31-2018 06-02-2021 Episodic Genitourinary symptoms and ill-defined conditions (20 sources) Blood in urine; Translations: [Hematuria, unspecified] Onset: 07-28-2023 07-10-2021 Episodic Headache; including migraine (7 sources) Headache; [...] nervous system] Onset: 01-22-2022 01-22-2022 Episodic Other connective tissue disease (1 source) Other muscle spasm; Translations: [Other muscle spasm] Onset: 09-20-2023 Episodic Other lower respiratory disease (2 sources) Dyspnea on exertion; Translations: [Other forms of dyspnea] Onset: 02-01-2023 02-11-2023 Episodic Other nervous system disorders (2 sources) Paresthesia; Translations: [Paresthesia of skin] Onset: 03-02-2023 03-02-2023 Episodic Other nutritional; endocrine; and metabolic disorders (3 sources) Abnormal weight loss; Translations: [Abnormal weight loss] Onset: 12-05-2019 12-11-2019 Episodic Other nutritional; endocrine; and metabolic disorders [...] Onset: 09-07-2023 09-07-2023 Episodic Residual codes; unclassified (3 sources) Other general symptoms and signs; Translations: [OTHER GENERAL SYMPTOMS AND SIGNS] Onset: 07-20-2017 Episodic Residual codes; unclassified (6 sources) Difficulty sleeping ; Translations: [Sleep disorder, unspecified] Onset: 08-31-2018 03-13-2020 Episodic Residual codes; unclassified (1 source) Pain, unspecified; Translations: [Pain, unspecified] Onset: 09-08-2023 Episodic Screening and history of mental health and substance abuse codes (14 sources) Finding of opiate drug in blood; Translations: [History of adulthood abuse] Onset: 11-04-2021 11-04-2021 Episodic Suicide and intentional self-inflicted injury (1 source) Suicidal ideations; Translations: [SUICIDAL IDEATIONS] Onset: 07-20-2017 Episodic Unclassified (1 source) Supraventricular tachycardia, unspecified; Translations: [Supraventricular tachycardia, unspecified] Onset: 11-16-2023 Viral infection (13 sources) Disease caused by 2019-nCoV; Translations: [COVID-19] Onset: 04-24-2021 04-24-2021 Episodic Results Test Name Value Interpretation Reference Range Facility MR LUMBAR SPINE WO CONTon MR LUMBAR SPINE WO CONT MR LUMBAR SPINE WO CONT EXAM: MR LUMBAR SPINE WO CONT INDICATION: Chronic bilateral low back pain without sciatica; Chronic bilateral low back pain with bilateral sciatica COMPARISON: None TECHNIQUE: Multiplanar multisequence noncontrast MR sequences through the lumbosacral spine. FINDINGS: Vertebral Bodies and intervertebral discs: The vertebral body heights and signal properties are normal.. Alignment: Normal. Extradural:There are no abnormal extradural fluid collections or masses. Conus: The conus terminates at approximately L1-L2. Spinal Cord and Cauda Equina: The included caudal spinal cord appears normal. Normal appearance of the cauda equina. Spinal levels: T12-L1: No spinal canal or foraminal stenosis. L1-L2: No spinal canal or foraminal stenosis. L2-L3: No spinal canal or foraminal stenosis. L3-L4: No spinal canal or foraminal stenosis. L4-L5: Mild circumferential disc bulge. No significant spinal canal stenosis. Very minimal bilateral foraminal narrowing. L5-S1: No spinal canal or foraminal stenosis. Soft Tissues: Normal Intraabdominal structures: The included retroperitoneal and pelvic structures appear normal. IMPRESSION: No acute or subacute appearing abnormalities. Mild circumferential disc bulge at L4-L5 resulting in very minimal bilateral foraminal narrowing. Otherwise normal MRI of the lumbar spine. Finalized by Nahun Henson on 01/24/2024 12:59 PM Normal [facility] Outside Recordson 01-13-2024 Outside Records [id number] F Normal [facility] CBC AND AUTO DIFFon 01-06-20 24 ABSOLUTE BASOPHIL 0.1 X10E9/L Normal 0.0-0.2 [facility] Comment on above: Performed By: #### C BCA, CMP, 5643-2, 69810-7 ####[facility] ([id number])[address] [place] [address] 40830 ABSOLUTE NEUTROPHIL 7.0 X10E9/L High 1.5-6.6 [facility] Comment on above: Performed By: #### C JERICHO PEDERSEN, 5643-2, ####[facility] ([id number])[address] [place] [address] 76889 Basophils/100 WBC (Bld) 0.7 % Normal [facility] Comment on above: Performed By: #### C SLAVA [facility], [facility]2, ####[facility] ([id number])[address] [place] [address] 03072 Eosinophils (Bld) [#/Vol] 0.0 10*3/uL Normal 0.0-0.4 [facility] Comment on above: Performed By: #### Kristen PEDERSEN CMP, [facility], ####[facility] ([id number])[address] [place] [address] 18391 Eosinophils/100 WBC (Bld) 0.3 % Normal [facility] Comment on above: Performed By: #### Kristen PEDERSEN CMP, [facility], ####[facility] ([id number])[address] [place] [address] 41820 Erythrocyte distribution width (RBC) [Ratio] 15.4 % High 11.5-15.0 [facility] Comment on above: Performed By: #### C JERICHO PEDERSEN, [facility]-2, ####[facility] ([id number])[address] [place] [address] 68794 Hematocrit (Bld) [Volume fraction] 40.7 % Normal 35-47 [facility] Comment on above: Performed By: #### Kristen PEDERSEN CMP, 43-, ####[facility] ([id number])[address] [place] [address] 26719 Hemoglobin (Bld) [Mass/Vol] 13.6 g/dL Normal 11.7-15.5 [facility] Comment on above: Performed By: #### Kristen PEDERSEN CMP, 5643-2, ####[facility] ([id number])[address] [place] [address] 43901 Lymphocytes (Bld) [#/Vol] 2.3 10*3/uL Normal 1.0-3.5 [facility] Comment on above: Performed By: #### Kristen PEDERSEN CMP, [facility], ####[facility] ([id number])[address] [place] [address] 13430 Lymphocytes/100 WBC (Bld) 23.0 % Normal [facility] Comment on above: Performed By: #### Kristen PEDERSEN CMP, [facility], ####[facility] ([id number])[address] [place] [address] 86386 MCH (RBC) [Entitic mass] 29.2 pg Normal 27-34 [facility] Comment on above: Performed By: #### Kristen PEDERSEN CMP, [facility], ####[facility] ([id number])[address] [place] [address] 92960 MCHC (RBC) [Mass/Vol] 33.4 g/dL Normal 32-36 [facility] Comment on above: Performed By: #### Kristen PEDERSEN CMP, 43-2, ####[facility] ([id number])[address] [place] [address] 65431 MCV (RBC) [Entitic vol] 87 fL Normal 80-100 [facility] Comment on above: Performed By: #### Kristen PEDERSEN CMP, 43, ####[facility] ([id number])[address] [place] [address] 87398 Monocytes (Bld) [#/Vol] 0.8 10*3/uL Normal 0-0.9 [facility] Comment on above: Performed By: #### C SLAVA CMP, 5643-2, ####[facility] ([id number])[address] [place] [address] 69646 Monocytes/100 WBC (Bld) 7.8 % Normal [facility] Comment on above: Performed By: #### Kristen PEDERSEN, CMP, 5643-2, ####[facility] ([id number])[address] [place] [address] 77303 Neutrophils/100 WBC (Bld) 68.2 % Normal [facility] Comment on above: Performed By: #### Kristen PEDERSEN, CMP, 5643-2, ####[facility] ([id number])[address] [place] [address] 62882 Platelet mean volume (Bld) [Entitic vol] 7.7 fL Normal 7-12 [facility] Comment on above: Performed By: #### Kristen PEDERSEN, CMP, 5643-2, ####[facility] ([id number])[address] [place] [address] 51524 Platelets (Bld) [#/Vol] 327 10*3/uL Normal 150-450 [facility] Comment on above: Performed By: #### Kristen PEDERSEN, CMP, 5643-2, ####[facility] ([id number])[address] [place] [address] 79168 RBC COUNT 4.66 X10E12/L Normal 3.80-5.20 [facility] Comment on above: Performed By: #### Kristen PEDERSEN, CMP, 5643-2, ####[facility] ([id number])[address] [place] [address] 41397 WBC (Bld) [#/Vol] 10.2 10*3/uL Normal 4.0-11.0 [facility] Comment on above: Performed By: #### C BCA, CMP, 5643-2, 51586-8 ####[facility] ([id number])[address] [place] [address] 11495 COMPREHENSIVE METABOLIC PANE Basim 01-06-2024 Albumin [Mass/Vol] 4.6 g/dL Normal 3.2-5.3 [facility] Comment on above: Performed By: #### C BCA, CMP, 43-2, ####[facility] ([id number])[address] [place] [address] 32056 ALP [Catalytic activity/Vol] 64 U/L Normal 39-130 [facility] Comment on above: Performed By: #### C BCA, CMP, 5643-2, ####[facility] ([id number])[address] [place] [address] 00721 ALT [Catalytic activity/Vol] 15 U/L Normal 0-31 [facility] Comment on above: Performed By: #### C BCA, CMP, 5643-2, 83399-5 ####[facility] ([id number])[address] [place] [address] [place] [address] Anion gap [Moles/Vol] 14 mmol/L Normal 5-15 [facility] Comment on above: Performed By: #### C BCA, CMP, 5643-2, 43130-0 ####[facility] ([id number])[address] [place] [address] 80363 AST [Catalytic activity/Vol] 21 U/L Normal 0-41 [facility] Comment on above: Performed By: #### C BCA, CMP, 5643-2, 68898-0 ####[facility] ([id number])[address] [place] [address] [place] [address] Bilirubin [Mass/Vol] 0.4 mg/dL Normal 0.3-1.2 [facility] Comment on above: Performed By: #### C JERICHO PEDERSEN, 5643-2, 93419-8 ####[facility] ([id number])[address] [place] [address] 95160 Calcium [Mass/Vol] 9.0 mg/dL Normal 8.5-10.5 [facility] Comment on above: Performed By: #### C JERICHO PEDERSEN, 5643-2, 26426-2 ####[facility] ([id number])[address] [place] [address] 08186 Chloride [Moles/Vol] 99 mmol/L Normal 98-109 [facility] Comment on above: Performed By: #### C JERICHO PEDERSEN, 5643-2, 97361-8 ####[facility] ([id number])[address] [place] [address] 72233 CO2 [Moles/Vol] 26 mmol/L Normal 22-32 [facility] Comment on above: Performed By: #### Kristen PEDERSEN CMP, 5643-2, 86598-1 ####[facility] ([id number])[address] [place] [address] 05953 Creatinine [Mass/Vol] 0.74 mg/dL Normal 0.40-1.00 [facility] Comment on above: Result Comment: METH OD TRACEABLE TO IDMS STANDARD Performed By: #### C JERICHO PEDERSEN, 5643-2, 63520-3 ####[facility] ([id number])[address] [place] [address] 79673 eGFR (CKD-EPI) NON-RACE DEPENDENT >90 Normal >59 [facility] Comment on above: Result Comment: Reported eGFR is based on the CKD-EPI 2020 equation that does not use a race coefficient. Performed By: #### C JERICHO PEDERSEN, 5643-2, 07556-5 ####[facility] ([id number])[address] [place] [address] [place] [address] Glucose [Mass/Vol] 86 mg/dL Normal 65-99 [facility] Comment on above: Performed By: #### C JERICHO PEDERSEN, 5643-2, 73808-3 ####[facility] ([id number])[address] [place] [address] 57511 Potassium [Moles/Vol] 3.6 mmol/L Normal 3.5-5.0 [facility] Comment on above: Performed By: #### C JERICHO PEDERSEN, 5643-2, 19303-1 ####[facility] ([id number])[address] [place] [address] 23528 Protein [Mass/Vol] 7.9 g/dL Normal 6.0-8.0 [facility] Comment on above: Performed By: #### C JERICHO PEDERSEN, 5643-, 40245-0 ####[facility] ([id number])[address] [place] [address] 57080 Sodium [Moles/Vol] 139 mmol/L Normal 134-146 [facility] Comment on above: Performed By: #### C JERICHO PEDERESN, 5643-, 02993-4 ####[facility] ([id number])[address] [place] [address] [place] [address] Urea nitrogen [Mass/Vol] 8 mg/dL Normal 5-23 [facility] Comment on above: Performed By: #### C JERICHO PEDERSEN, 5643-, 06708-8 ####[facility] ([id number])[address] [place] [address] 95889 ETHANOLon 01-06-2024 Ethanol [Mass/Vol] mg/dL Normal 0.00-0.08 [facility] Comment on above: Result Comment: This report is intended for use in clinical monitoring or management of patients. Performed By: #### C BCA, CMP, 5643-2, 42698-4 ####[facility] ([id number])[address] [place] [address] 16285 MAGNESIUMon 01-06-2024 Magnesium [Mass/Vol] 2.2 mg/dL Normal 1.8-2.6 [facility] Comment on above: Performed By: #### N UM #### [facility] ([id number]) [address] [place] [address], [place] [address] 37on 01-03-2024 37 Increase midodrine t o 10 mg three times a day for low blood pressure Increase metoprolol to 25 mg (1 tab) - if worsening lightheadedness may decrease back to 1/2 tab Add salt to diet/electrolyte replacements to help with preventing dehydration [facility] Office Visiton 01-03-2024 Follow-up visit [id number] Juan Jose Kovacs 2000 F Date Provider Department Center 01/03/2024 Leisa-SWAPNA DAMON CARD [facility] No family history on file Level of Service:33086 LA OFFICE/OUTPATIENT ESTABLISHED MOD MDM 30 MIN [facility] Insuranceon 01-02-2024 Insurance [id number]#1.00OTGT IFF [facility] Insuranceon 12-22-2023 Insurance [id number]#1.00OTGTI FF [facility] Outside Recordson 12-13-2023 Outside Records [id number]#1.00OTGT IFF [facility] Basic Metabolic Panelon 11-25 Anion gap [Moles/Vol] 11 mmol/L 9 - 17 mmol/L [facility] Calcium [Mass/Vol] 9.4 mg/dL 8.6 - 10. 4 mg/dL [facility] Chloride [Moles/Vol] 100 mmol/L 98 - 10 7 mmol/L [facility] CO2 [Moles/Vol] 28 mmol/L 20 - 31 mmol/L [facility] Creatinine [Mass/Vol] 0.7 mg/dL 0.5 - 0.9 mg/dL [facility] Teresita Loera Rate - [facility] [...] 88 mg/dL 70 - 99 mg/dL [facility] Potassium [Moles/Vol] 3.8 mmol/L 3.7 - 5.3 mmol/L [facility] Sodium [Moles/Vol] 139 mmol/L 135 - 144 mmol/L [facility] Urea nitrogen [Mass/Vol] 10 mg/dL 6 - 20 mg/dL [facility] Urea nitrogen/Creatinine [Mass ratio] 14 mg/mg 9 - 20 [facility] Basic Metabolic Profon 12-08 Anion gap [Moles/Vol] 11 mmol/L Normal 9-17 [facility] Comment on above: Performed By: #### C NARCISO, BMP #### [facility] [address] [facility] [place], [place] [id number] Early Morning Babysitter: Chidi Richter MD BUN/CRE Ratio 14 Normal 9-20 [facility] Comment on above: Performed By: #### C BC, BMP #### [facility] [address] [facility] [place], [place] [id number] Early Morning Babysitter: Chidi Richter MD Calcium [Mass/Vol] 9.4 mg/dL Normal 8.6-10.4 [facility] Comment on above: Performed By: #### C BC, BMP #### [facility] [address] [place] [address] Early Morning Babysitter: Chidi Richter MD Chloride [Moles/Vol] 100 mmol/L Normal 98-107 [facility] Comment on above: Performed By: #### C BC, BMP #### [facility] [address] [place] [address] Early Morning Babysitter: Chidi Richter MD CO2 [Moles/Vol] 28 mmol/L Normal 20-31 [facility] Comment on above: Performed By: #### C BC, BMP #### [facility] [address] [facility] [place] [address] Early Morning Babysitter: Chidi Richter MD Creatinine [Mass/Vol] 0.7 mg/dL Normal 0.5-0.9 [facility] Comment on above: Performed By: #### C NARCISO, BMP #### [facility] [address] [facility] [place] [address] Early Morning Babysitter: Chidi Richter MD GFR/1.73 sq M.predicted among non-blacks MDRD (S/P/Bld) [Vol rate/Area] mL/min/{1.73_m2} Normal >60 [facility] Comment on above: Result Comment: These [...] renal tubular secretion. Performed By: #### C BC, BMP #### [facility] [address] [place] [address] Early Morning Babysitter: Chidi Richter MD Glucose [Mass/Vol] 88 mg/dL Normal 70-99 [facility] Comment on above: Performed By: #### C BC, BMP #### [facility] [address] [facility] [place] [address] Early Morning Babysitter: Chidi Richter MD Potassium [Moles/Vol] 3.8 mmol/L Normal 3.7-5.3 [facility] Comment on above: Performed By: #### C BC, BMP #### [facility] [address] [place], [place] [id number] Early Morning Babysitter: Chidi Richter MD Sodium [Moles/Vol] 139 mmol/L Normal 135-144 [facility] Comment on above: Performed By: #### C NARCISO, BMP #### [facility] [address] [facility] [place], [place] [id number] Early Morning Babysitter: Chidi Richter MD Urea nitrogen [Mass/Vol] 10 mg/dL Normal 6-20 [facility] Comment on above: Performed By: #### C NARCISO, BMP #### [facility] [address] [facility] [place] [address] Early Morning Babysitter: Chidi Richter MD CBCon 12-09-2023 Erythrocyte distribution width (RBC) [Ratio] 13.3 % 11.8 - 14.4 % [facility] Hematocrit (Bld) [Volume fraction] 40.9 % 36.3 - 47.1 % [facility] Hemoglobin (Bld) [Mass/Vol] 13.7 g/dL 11.9 - 15.1 g/dL [facility] MCH (RBC) [Entitic mass] 28.5 pg 25.2 - 33.5 pg [facility] MCHC (RBC) [Mass/Vol] 33.5 g/dL 28.4 - 34.8 g/dL [facility] MCV (RBC) [Entitic vol] 85.0 fL 82.6 - 102.9 fL [facility] Nucleated RBC/100 WBC (Bld) [Ratio] 0.0 % 0.0 per 100 WBC [facility] Platelet mean volume (Bld) [Entitic vol] 9.9 fL 8.1 - 13.5 fL [facility] Platelets (Bld) [#/Vol] 253 10*3/uL [facility] RBC (Bld) [#/Vol] 4.81 10*6/uL 3.95 - 5.1 1 m/uL [facility] WBC other (Bld) [#/Vol] 6.6 [facility] Erythrocyte distribution width (RBC) [Ratio] 13.3 % Normal 11.8-14.4 [facility] Comment on above: Performed By: #### C NARCISO, BMP #### [facility] [place] [address] Early Morning Babysitter: Chidi Richter MD Hematocrit (Bld) [Volume fraction] 40.9 % Normal 36.3-47.1 [facility] Comment on above: Performed By: #### C NARCISO, BMP #### [facility] [address] [place] [address] Early Morning Babysitter: Chidi Richter MD Hemoglobin (Bld) [Mass/Vol] 13.7 g/dL Normal 11.9-15.1 [facility] Comment on above: Performed By: #### C NARCISO, BMP #### [facility] [address] [place] [address] Early Morning Babysitter: Chidi Richter MD MCH (RBC) [Entitic mass] 28.5 pg Normal 25.2-33.5 [facility] Comment on above: Performed By: #### C NARCISO, BMP #### [facility] [place] [address] Early Morning Babysitter: Chidi Richter MD MCHC (RBC) [Mass/Vol] 33.5 g/dL Normal 28.4-34.8 [facility] Comment on above: Performed By: #### C NARCISO, BMP #### [facility] [address] [place] [address] Early Morning Babysitter: Chidi Richter MD MCV (RBC) [Entitic vol] 85.0 fL Normal 82.6-102.9 [facility] Comment on above: Performed By: #### C NARCISO, BMP #### [facility] [address] [facility] [place] [address] Early Morning Babysitter: Chidi Richter MD NRBC Automated 0.0 per 100 WBC Normal 0.0 [facility] Comment on above: Performed By: #### C NARCISO, BMP #### [facility] [address] [place] [address]. [place] [address] Early Morning Babysitter: Chidi Richter MD Platelet mean volume (Bld) [Entitic vol] 9.9 fL Normal 8.1-13.5 [facility] Comment on above: Performed By: #### C NARCISO, BMP #### [facility] [facility] [place] [address] Early Morning Babysitter: Chidi Richter MD Platelets (Bld) [#/Vol] 253 10*3/uL Normal 138-453 [facility] Comment on above: Performed By: #### C NARCISO, BMP #### [facility] [facility] [place] [address] Early Morning Babysitter: Chidi Richter MD RBC (Bld) [#/Vol] 4.81 10*6/uL Normal 3.95-5.11 [facility] Comment on above: Performed By: #### C NARCISO, BMP #### [facility] [facility] [place] [address] Early Morning Babysitter: Chidi Richter MD WBC (Bld) [#/Vol] 6.6 10*3/uL Normal 3.5-11.3 [facility] Comment on above: Performed By: #### C BC, BMP #### [facility] [address] [place] [address] Early Morning Babysitter: Chidi Richter MD Basic Metabolic Profon 12-05 Anion gap [Moles/Vol] 17 mmol/L Normal 9-17 [facility] Comment on above: Performed By: #### B MP, CBC #### [facility] [address] [place] [address] Early Morning Babysitter: Chidi Richter MD BUN/CRE Ratio 20 Normal 9-20 [facility] Comment on above: Performed By: #### B MP, CBC #### [facility] [address] [place] [address] Early Morning Babysitter: Chidi Richter MD Calcium [Mass/Vol] 9.8 mg/dL Normal 8.6-10.4 [facility] Comment on above: Performed By: #### B MP, CBC #### [facility] [place] [address] Early Morning Babysitter: Chidi Richter MD Chloride [Moles/Vol] 97 mmol/L Low 98-107 [facility] Comment on above: Performed By: #### B MP, CBC #### [facility] [address] [place] [address] Early Morning Babysitter: Chidi Richter MD CO2 [Moles/Vol] 25 mmol/L Normal 20-31 [facility] Comment on above: Performed By: #### B MP, CBC #### [facility] [address] [place] [address] Early Morning Babysitter: Chidi Richter MD Creatinine [Mass/Vol] 0.7 mg/dL Normal 0.5-0.9 [facility] Comment on above: Performed By: #### B DANIEL, CBC #### [facility] [address] [facility] [place] [address] Early Morning Babysitter: Chidi Richter MD GFR/1.73 sq M.predicted among non-blacks MDRD (S/P/Bld) [Vol rate/Area] mL/min/{1.73_m2} Normal >60 [facility] Comment on above: Result Comment: These [...] renal tubular secretion. Performed By: #### B DANIEL, CBC #### [facility] [facility] [address] Early Morning Babysitter: Chidi Richter MD Glucose [Mass/Vol] 56 mg/dL Low 70-99 [facility] Comment on above: Performed By: #### Darrel SANCHEZ, CBC #### [facility] [address] [place] [address]. [place] [address] Early Morning Babysitter: Chidi Richter MD Potassium [Moles/Vol] 3.8 mmol/L Normal 3.7-5.3 [facility] Comment on above: Performed By: #### B DANIEL, CBC #### [facility] [address] [place] [address]. [place] [address] Early Morning Babysitter: Cihdi Richter MD Sodium [Moles/Vol] 139 mmol/L Normal 135-144 [facility] Comment on above: Performed By: #### B DANIEL, CBC #### [facility] [address] [place] [address] [place] [address] Early Morning Babysitter: Chidi Richter MD Urea nitrogen [Mass/Vol] 14 mg/dL Normal 6-20 [facility] Comment on above: Performed By: #### B MP, CBC #### [facility] [address] [place] [address]. [place] [address] Early Morning Babysitter: Chidi Richter MD CBCon 12-06-2023 Erythrocyte distribution width (RBC) [Ratio] 13.2 % Normal 11.8-14.4 [facility] Comment on above: Performed By: #### B MP, CBC #### [facility] [address] [place] [address]. [place] [address] Early Morning Babysitter: Chidi Richter MD Hematocrit (Bld) [Volume fraction] 40.6 % Normal 36.3-47.1 [facility] Comment on above: Performed By: #### B MP, CBC #### [facility] [address] [place] [address]. [place] [address] Early Morning Babysitter: Chidi Richter MD Hemoglobin (Bld) [Mass/Vol] 13.6 g/dL Normal 11.9-15.1 [facility] Comment on above: Performed By: #### B MP, CBC #### [facility] [address] [place] [address]. [place] [address] Early Morning Babysitter: Chidi Richter MD MCH (RBC) [Entitic mass] 29.2 pg Normal 25.2-33.5 [facility] Comment on above: Performed By: #### B MP, CBC #### [facility] [address] [place] [address]. [place] [address] Early Morning Babysitter: Chidi Richter MD MCHC (RBC) [Mass/Vol] 33.5 g/dL Normal 28.4-34.8 [facility] Comment on above: Performed By: #### B MP, CBC #### [facility] [address] [facility] [place] [address] Early Morning Babysitter: Chidi Richter MD MCV (RBC) [Entitic vol] 87.3 fL Normal 82.6-102.9 [facility] Comment on above: Performed By: #### B MP, CBC #### [facility] [address] [place] [address] Early Morning Babysitter: Chidi Richter MD NRBC Automated 0.0 per 100 WBC Normal 0.0 [facility] Comment on above: Performed By: #### B MP, CBC #### [facility] [address] [place] [address] Early Morning Babysitter: Chidi Richter MD Platelet mean volume (Bld) [Entitic vol] 10.3 fL Normal 8.1-13.5 [facility] Comment on above: Performed By: #### B MP, CBC #### [facility] [address] [place] [address] Early Morning Babysitter: Chidi Richter MD Platelets (Bld) [#/Vol] 233 10*3/uL Normal 138-453 [facility] Comment on above: Performed By: #### B MP, CBC #### [facility] [address] [place] [address] Early Morning Babysitter: Chidi Richter MD RBC (Bld) [#/Vol] 4.65 10*6/uL Normal 3.95-5.11 [facility] Comment on above: Performed By: #### B MP, CBC #### [facility] [address] [place] [address] Early Morning Babysitter: Chidi Richter MD WBC (Bld) [#/Vol] 7.0 10*3/uL Normal 3.5-11.3 [facility] Comment on above: Performed By: #### B MP, CBC #### [facility] [address] [place] [address] Early Morning Babysitter: Chidi Richter MD Basic Metabolic Profon 12-01 Anion gap [Moles/Vol] 10 mmol/L Normal 9-17 [facility] Comment on above: Performed By: #### C BC, BMP #### [facility] [address] [place] [address] Early Morning Babysitter: Chidi Richter MD BUN/CRE Ratio 11 Normal 9-20 [facility] Comment on above: Performed By: #### C BC, BMP #### [facility] [address] [place] [address] Early Morning Babysitter: Chidi Richter MD Calcium [Mass/Vol] 9.2 mg/dL Normal 8.6-10.4 [facility] Comment on above: Performed By: #### C BC, BMP #### [facility] [address] [place] [address] Early Morning Babysitter: Chidi Richter MD Chloride [Moles/Vol] 105 mmol/L Normal 98-107 [facility] Comment on above: Performed By: #### C BC, BMP #### [facility] [address] [place] [address] Early Morning Babysitter: Chidi Richter MD CO2 [Moles/Vol] 26 mmol/L Normal 20-31 [facility] Comment on above: Performed By: #### C BC, BMP #### [facility] [address] [place] [address] Early Morning Babysitter: Chidi Richter MD Creatinine [Mass/Vol] 0.7 mg/dL Normal 0.5-0.9 [facility] Comment on above: Performed By: #### C NARCISO, BMP #### [facility] [address] [facility] [place] [address] Early Morning Babysitter: Chidi Richter MD GFR/1.73 sq M.predicted among non-blacks MDRD (S/P/Bld) [Vol rate/Area] mL/min/{1.73_m2} Normal >60 [facility] Comment on above: Result Comment: These [...] Performed By: #### C NARCISO, BMP #### [facility] [address] [facility] [place] [address] Early Morning Babysitter: Chidi Richter MD Glucose [Mass/Vol] 93 mg/dL Normal 70-99 [facility] Comment on above: Performed By: #### C NARCISO, BMP #### [facility] [address] [facility] [place] [address] Early Morning Babysitter: Chidi Richter MD Potassium [Moles/Vol] 3.9 mmol/L Normal 3.7-5.3 [facility] Comment on above: Performed By: #### C NARCISO, BMP #### [facility] [address] [facility] [place] [address] Early Morning Babysitter: Chidi Richter MD Sodium [Moles/Vol] 141 mmol/L Normal 135-144 [facility] Comment on above: Performed By: #### C NARCISO, BMP #### [facility] [address] [place] [address] Early Morning Babysitter: Chidi Richter MD Urea nitrogen [Mass/Vol] 8 mg/dL Normal 6-20 [facility] Comment on above: Performed By: #### C BC, BMP #### [facility] [address] [facility] [place] [address] Early Morning Babysitter: Chidi Richter MD CBCon 12-02-2023 Erythrocyte distribution width (RBC) [Ratio] 13.0 % Normal 11.8-14.4 [facility] Comment on above: Performed By: #### C BC, BMP #### [facility] [address] [place] [address]. [place] [address] Early Morning Babysitter: Chidi Richter MD Hematocrit (Bld) [Volume fraction] 39.2 % Normal 36.3-47.1 [facility] Comment on above: Performed By: #### C BC, BMP #### [facility] [address] [place] [address]. [place] [address] Early Morning Babysitter: Chidi Richter MD Hemoglobin (Bld) [Mass/Vol] 12.7 g/dL Normal 11.9-15.1 [facility] Comment on above: Performed By: #### C BC, BMP #### [facility] [address] [place] [address]. [place] [address] Early Morning Babysitter: Chidi Richter MD MCH (RBC) [Entitic mass] 28.7 pg Normal 25.2-33.5 [facility] Comment on above: Performed By: #### C BC, BMP #### [facility] [address] [place] [address]. [place] [address] Early Morning Babysitter: Chidi Richter MD MCHC (RBC) [Mass/Vol] 32.4 g/dL Normal 28.4-34.8 [facility] Comment on above: Performed By: #### C BC, BMP #### [facility] [address] [place] [address] Early Morning Babysitter: Chidi Richter MD MCV (RBC) [Entitic vol] 88.5 fL Normal 82.6-102.9 [facility] Comment on above: Performed By: #### C NARCISO, BMP #### [facility] [facility] [place] [address] Early Morning Babysitter: Chidi Richter MD NRBC Automated 0.0 per 100 WBC Normal 0.0 [facility] Comment on above: Performed By: #### C NARCISO, BMP #### [facility] [address] [place], [place] [address]ia [facility] [place] [address] Early Morning Babysitter: Chidi Richter MD Platelet mean volume (Bld) [Entitic vol] 10.0 fL Normal 8.1-13.5 [facility] Comment on above: Performed By: #### C NARCISO, BMP #### [facility] [address] [place] [address]. [place] [address] Early Morning Babysitter: Chidi Richter MD Platelets (Bld) [#/Vol] 221 10*3/uL Normal 138-453 [facility] Comment on above: Performed By: #### C NARCISO, BMP #### [facility] [address] [place] [address]. [place] [address] Early Morning Babysitter: Chidi Richter MD RBC (Bld) [#/Vol] 4.43 10*6/uL Normal 3.95-5.11 [facility] Comment on above: Performed By: #### C NARCISO, BMP #### [facility] [address] [place], [place] [address]ia [facility] [place] [address] Early Morning Babysitter: Chidi Richter MD WBC (Bld) [#/Vol] 7.4 10*3/uL Normal 3.5-11.3 [facility] Comment on above: Performed By: #### C , BMP #### [facility] [address] [place] [address] Early Morning Babysitter: Chidi Richter MD BMPon 12-01-2023 Anion gap [Moles/Vol] 8 mmol/L Low 9 - 17 mmol/L [facility] Calcium [Mass/Vol] 8.8 mg/dL 8.6 - 10. 4 mg/dL [facility] Chloride [Moles/Vol] 106 mmol/L 98 - 10 7 mmol/L [facility] CO2 [Moles/Vol] 26 mmol/L 20 - 31 mmol/L [facility] Creatinine [Mass/Vol] 0.8 mg/dL 0.5 - 0.9 mg/dL [facility] Est, Shainanoemy Russelltamar Ernandez - [facility] [...] 92 mg/dL 70 - 99 mg/dL [facility] Interpretation and review of laboratory results Abnormal [facility] Potassium [Moles/Vol] 4.1 mmol/L 3.7 - 5.3 mmol/L [facility] Sodium [Moles/Vol] 140 mmol/L 135 - 144 mmol/L [facility] Urea nitrogen [Mass/Vol] 11 mg/dL 6 - 20 mg/dL [facility] Urea nitrogen/Creatinine [Mass ratio] 14 mg/mg 9 - 20 [facility] Basic Metabolic Profon 11-30 Anion gap [Moles/Vol] 8 mmol/L Low 9-17 [facility] Comment on above: Performed By: #### C NARCISO, CP #### [facility] [address] [place] [address] Early Morning Babysitter: Chidi Richter MD BUN/CRE Ratio 14 Normal 9-20 [facility] Comment on above: Performed By: #### C NARCISO, CP #### [facility] [address] [place] [address] Early Morning Babysitter: Chidi Richter MD Calcium [Mass/Vol] 8.8 mg/dL Normal 8.6-10.4 [facility] Comment on above: Performed By: #### C NARCISO, CP #### [facility] [address] [facility] [place] [address] Early Morning Babysitter: Chidi Richter MD Chloride [Moles/Vol] 106 mmol/L Normal 98-107 [facility] Comment on above: Performed By: #### C NARCISO, CP #### [facility] [address] [place] [address] Early Morning Babysitter: Chidi Richter MD CO2 [Moles/Vol] 26 mmol/L Normal 20-31 [facility] Comment on above: Performed By: #### C NARCISO, CP #### [facility] [address] [place] [address] Early Morning Babysitter: Chidi Richter MD Creatinine [Mass/Vol] 0.8 mg/dL Normal 0.5-0.9 [facility] Comment on above: Performed By: #### C NARCISO, CP #### [facility] [address] [place] [address] Early Morning Babysitter: Chidi Richter MD GFR/1.73 sq M.predicted among non-blacks MDRD (S/P/Bld) [Vol rate/Area] mL/min/{1.73_m2} Normal >60 [facility] Comment on above: Result Comment: These [...] Performed By: #### C NARCISO, CP #### [facility] [address] [facility] [place] [address] Early Morning Babysitter: Chidi Richter MD Glucose [Mass/Vol] 92 mg/dL Normal 70-99 [facility] Comment on above: Performed By: #### C NARCISO, CP #### [facility] [place] [address] Early Morning Babysitter: Chidi Richter MD Potassium [Moles/Vol] 4.1 mmol/L Normal 3.7-5.3 [facility] Comment on above: Performed By: #### C NARCISO, CP #### [facility] [address] [facility] [place] [address] Early Morning Babysitter: Chidi Richter MD Sodium [Moles/Vol] 140 mmol/L Normal 135-144 [facility] Comment on above: Performed By: #### C NARCISO, CP #### [facility] [place] [address] Early Morning Babysitter: Chidi Richter MD Urea nitrogen [Mass/Vol] 11 mg/dL Normal 6-20 [facility] Comment on above: Performed By: #### C NARCISO, CP #### [facility] [address] Early Morning Babysitter: Chidi Richter MD CBCon 12-01-2023 Erythrocyte distribution width (RBC) [Ratio] 13.1 % Normal 11.8-14.4 [facility] Comment on above: Performed By: #### C NARCISO, CP #### [facility] [address] [facility] [place] [address] Early Morning Babysitter: Chidi Richter MD Hematocrit (Bld) [Volume fraction] 40.6 % Normal 36.3-47.1 [facility] Comment on above: Performed By: #### C NARCISO, CP #### [facility] [place] [address] Early Morning Babysitter: Chidi Richter MD Hemoglobin (Bld) [Mass/Vol] 13.1 g/dL Normal 11.9-15.1 [facility] Comment on above: Performed By: #### C NARCISO, CP #### [facility] [address] [place] [address]. [place] [address] Early Morning Babysitter: Chidi Richter MD MCH (RBC) [Entitic mass] 28.7 pg Normal 25.2-33.5 [facility] Comment on above: Performed By: #### C NARCISO, CP #### [facility] [address] [place] [address]. [place] [address] Early Morning Babysitter: Chidi Richter MD MCHC (RBC) [Mass/Vol] 32.3 g/dL Normal 28.4-34.8 [facility] Comment on above: Performed By: #### C NARCISO, CP #### [facility] [address] [place] [address]. [place] [address] Early Morning Babysitter: Chidi Richter MD MCV (RBC) [Entitic vol] 88.8 fL Normal 82.6-102.9 [facility] Comment on above: Performed By: #### C NARCISO, CP #### [facility] [address] [place] [address]. [place] [address] Early Morning Babysitter: Chidi Richter MD NRBC Automated 0.0 per 100 WBC Normal 0.0 [facility] Comment on above: Performed By: #### C NARCISO, CP #### [facility] [address] [place] [address] Early Morning Babysitter: Chidi Richter MD Platelet mean volume (Bld) [Entitic vol] 10.0 fL Normal 8.1-13.5 [facility] Comment on above: Performed By: #### C NARCISO, CP #### [facility] [facility] [place] [address] Early Morning Babysitter: Chidi Richter MD Platelets (Bld) [#/Vol] 222 10*3/uL Normal 138-453 [facility] Comment on above: Performed By: #### C NARCISO, CP #### [facility] [address] [place] [address]. [place] [address] Early Morning Babysitter: Chidi Richter MD RBC (Bld) [#/Vol] 4.57 10*6/uL Normal 3.95-5.11 [facility] Comment on above: Performed By: #### C NARCISO, CP #### [facility] [place] [address] Early Morning Babysitter: Chidi Richter MD WBC (Bld) [#/Vol] 6.0 10*3/uL Normal 3.5-11.3 [facility] Comment on above: Performed By: #### C NARCISO, CP #### [facility] [address] Early Morning Babysitter: Chidi Richter MD CBC with Auto Differentialon 12-01-2023 Basophils (Bld) [#/Vol] 0.03 10*3/uL [facility] Basophils/100 WBC (Bld) 1 % 0 - 2 % [facility] Eosinophils (Bld) [#/Vol] 0.08 10*3/uL [facility] Eosinophils/100 WBC (Bld) 1 % 1 - 4 % [facility] Erythrocyte distribution width (RBC) [Ratio] 13.0 % 11.8 - 14.4 % [facility] Hematocrit (Bld) [Volume fraction] 40.2 % 36.3 - 47.1 % [facility] Hemoglobin (Bld) [Mass/Vol] 13.0 g/dL 11.9 - 15.1 g/dL [facility] Immature granulocytes (Bld) [#/Vol] 0.01 10*3/uL [facility] Immature granulocytes/100 WBC (Bld) 0 % 0 [facility] Interpretation and review of laboratory results Abnormal [facility] Lymphocytes/100 WBC (Bld) 44 % High 24 - 43 % [facility] Lymphocytes/100 WBC (Bld) 2.68 % [facility] MCH (RBC) [Entitic mass] 28.8 pg 25.2 - 33.5 pg [facility] MCHC (RBC) [Mass/Vol] 32.3 g/dL 28.4 - 34.8 g/dL [facility] MCV (RBC) [Entitic vol] 89.1 fL 82.6 - 102.9 fL [facility] Monocytes/100 WBC (Bld) 8 % 3 - 12 % [facility] Monocytes/100 WBC (Bld) 0.47 % [facility] Neutrophils/100 WBC (Bld) 46 % 36 - 65 % [facility] Nucleated RBC/100 WBC (Bld) [Ratio] 0.0 % 0.0 per 100 WBC [facility] Platelet mean volume (Bld) [Entitic vol] 10.2 fL 8.1 - 13.5 fL [facility] Platelets (Bld) [#/Vol] 222 10*3/uL [facility] RBC (Bld) [#/Vol] 4.51 10*6/uL 3.95 - 5.1 1 m/uL [facility] Segmented neutrophils/100 WBC (Bld) 2.89 % [facility] WBC other (Bld) [#/Vol] 6.2 [facility] CBC with Diffon 12-01-2023 Abs. Basophil 0.03 k/uL Normal 0.00-0.20 [facility] Comment on above: Performed By: #### C NARCISO, CP #### [facility] [place] [address] Early Morning Babysitter: Chidi Richter MD Abs.Imm.Granulocyte 0.01 k/uL Normal 0.00-0.30 [facility] Comment on above: Performed By: #### C NARCISO, CP #### [facility] [address] [place] [address]. [place] [address] Early Morning Babysitter: Chidi Richter MD Abs.Neutrophil (Seg) 2.89 k/uL Normal 1.50-8.10 [facility] Comment on above: Performed By: #### C NARCISO, CP #### [facility] [address] [place] [address] Early Morning Babysitter: Chidi Richter MD Basophils/100 WBC (Bld) 1 % Normal 0-2 [facility] Comment on above: Performed By: #### C NARCISO, CP #### [facility] [address] [place] [address] Early Morning Babysitter: Chidi Richter MD Eosinophils (Bld) [#/Vol] 0.08 10*3/uL Normal 0.00-0.44 [facility] Comment on above: Performed By: #### C NARCISO, CP #### [facility] [address] [place] [address]. [place] [address] Early Morning Babysitter: Chidi Richter MD Eosinophils/100 WBC (Bld) 1 % Normal 1-4 [facility] Comment on above: Performed By: #### C NARCISO, CP #### [facility] [address] [place] [address]. [place] [address] Early Morning Babysitter: Chidi Richter MD Erythrocyte distribution width (RBC) [Ratio] 13.0 % Normal 11.8-14.4 [facility] Comment on above: Performed By: #### C NARCISO, CP #### [facility] [address] [place] [address] Early Morning Babysitter: Chidi Richter MD Hematocrit (Bld) [Volume fraction] 40.2 % Normal 36.3-47.1 [facility] Comment on above: Performed By: #### C BC, CP #### [facility] [address] Early Morning Babysitter: Chidi Richter MD Hemoglobin (Bld) [Mass/Vol] 13.0 g/dL Normal 11.9-15.1 [facility] Comment on above: Performed By: #### C NARCISO, CP #### [facility] [address] [place], [place] [address]ia [facility] [place] [address] Early Morning Babysitter: Chidi Richter MD Immature granulocytes/100 WBC (Bld) 0 % Normal 0 [facility] Comment on above: Performed By: #### C NARCISO, CP #### [facility] [address] [place], [place] [address]ia [facility] [place] [address] Early Morning Babysitter: Chidi Richter MD Lymphocytes (Bld) [#/Vol] 2.68 10*3/uL Normal 1.10-3.70 [facility] Comment on above: Performed By: #### C NARCISO, CP #### [facility] [facility] [place] [address] Early Morning Babysitter: Chidi Richter MD Lymphocytes/100 WBC (Bld) 44 % High 24-43 [facility] Comment on above: Performed By: #### C BC, CP #### [facility] [place] [address] Early Morning Babysitter: Chidi Richter MD MCH (RBC) [Entitic mass] 28.8 pg Normal 25.2-33.5 [facility] Comment on above: Performed By: #### C BC, CP #### [facility] [address] [place] [address] Early Morning Babysitter: Chidi Richter MD MCHC (RBC) [Mass/Vol] 32.3 g/dL Normal 28.4-34.8 [facility] Comment on above: Performed By: #### C BC, CP #### [facility] [address] [place] [address]. [place] [address] Early Morning Babysitter: Chidi Richter MD MCV (RBC) [Entitic vol] 89.1 fL Normal 82.6-102.9 [facility] Comment on above: Performed By: #### C BC, CP #### [facility] [address] [place] [address]. [place] [address] Early Morning Babysitter: Chidi Richter MD Monocytes (Bld) [#/Vol] 0.47 10*3/uL Normal 0.10-1.20 [facility] Comment on above: Performed By: #### C NARCISO, CP #### [facility] [address] [place] [address]. [place] [address] Early Morning Babysitter: Chidi Richter MD Monocytes/100 WBC (Bld) 8 % Normal 3-12 [facility] Comment on above: Performed By: #### C BC, CP #### [facility] [address] [place], [place] [address]ia [facility] [place] [address] Early Morning Babysitter: Chidi Richter MD Neutrophil (Seg) 46 % Normal 36-65 [facility] Comment on above: Performed By: #### C BC, CP #### [facility] [address] [place], [place] [address]ia [facility] [place] [address] Early Morning Babysitter: Chidi Richter MD NRBC Automated 0.0 per 100 WBC Normal 0.0 [facility] Comment on above: Performed By: #### C NARCISO, CP #### [facility] [address] [place] [address] Early Morning Babysitter: Chidi Richter MD Platelet mean volume (Bld) [Entitic vol] 10.2 fL Normal 8.1-13.5 [facility] Comment on above: Performed By: #### C NARCISO, CP #### [facility] [facility] [place] [address] Early Morning Babysitter: Chidi Richter MD Platelets (Bld) [#/Vol] 222 10*3/uL Normal 138-453 [facility] Comment on above: Performed By: #### Kristen STUART, CP #### [facility] [place] [address] Early Morning Babysitter: Chidi Richter MD RBC (Bld) [#/Vol] 4.51 10*6/uL Normal 3.95-5.11 [facility] Comment on above: Performed By: #### Kristen STUART, CP #### [facility] [address] Early Morning Babysitter: Chidi Richter MD WBC (Bld) [#/Vol] 6.2 10*3/uL Normal 3.5-11.3 [facility] Comment on above: Performed By: #### Kristen STUART, CP #### [facility] [facility] [place] [address] Early Morning Babysitter: Chidi Richter MD CT CERVICAL SPINE WO [...] Alonso Jones MD 12/01/23 Final result Normal [facility] CT Cervical spine WO contras ton 12-01-2023 Radiology Study observation (narrative) [facility] CT HEAD WO CONTRASTon 2023 CT [...] Alonso Jones MD 12/01/23 Final result Normal [facility] CT Head WO contraston 2023 Radiology Study observation (narrative) [facility] Metabolic Profon 2023 Albumin [Mass/Vol] 4.4 g/dL Normal 3.5-5.2 [facility] Comment on above: Performed By: #### C BC, CP #### [facility] [address] [place] [address] Early Morning Babysitter: Chidi Richter MD Alkaline Phos 53 U/L Normal 35-104 [facility] Comment on above: Performed By: #### C BC, CP #### [facility] [address] [place] [address] Early Morning Babysitter: Chidi Richter MD ALT [Catalytic activity/Vol] U/L Low 5-33 [facility] Comment on above: Performed By: #### C BC, CP #### [facility] [address] [place] [address] Early Morning Babysitter: Chidi Richter MD Anion gap [Moles/Vol] 7 mmol/L Low 9-17 [facility] Comment on above: Performed By: #### C NARCISO, CP #### [facility] [address] [place] [address] Early Morning Babysitter: Chidi Richter MD AST [Catalytic activity/Vol] 14 U/L Normal <32 [facility] Comment on above: Performed By: #### C NARCISO, CP #### [facility] [address] [place] [address] Early Morning Babysitter: Chidi Richter MD Bilirubin [Mass/Vol] 0.2 mg/dL Low 0.3-1.2 [facility] Comment on above: Performed By: #### C NARCISO, CP #### [facility] [address] [place] [address] Early Morning Babysitter: Chidi Richter MD BUN/CRE Ratio 16 Normal 9-20 [facility] Comment on above: Performed By: #### C BC, CP #### [facility] [address] [place] [address] Early Morning Babysitter: Chidi Richter MD Calcium [Mass/Vol] 9.4 mg/dL Normal 8.6-10.4 [facility] Comment on above: Performed By: #### C BC, CP #### [facility] [address] [place] [address] Early Morning Babysitter: Chidi Richter MD Chloride [Moles/Vol] 104 mmol/L Normal 98-107 [facility] Comment on above: Performed By: #### C NARCISO, CP #### [facility] [address] [place] [address] Early Morning Babysitter: Chidi Richter MD CO2 [Moles/Vol] 31 mmol/L Normal 20-31 [facility] Comment on above: Performed By: #### C NARCISO, CP #### [facility] [address] [facility] [place] [address] Early Morning Babysitter: Chidi Richter MD Creatinine [Mass/Vol] 0.9 mg/dL Normal 0.5-0.9 [facility] Comment on above: Performed By: #### C NARCISO, CP #### [facility] [place] [address] Early Morning Babysitter: Chidi Richter MD GFR/1.73 sq M.predicted among non-blacks MDRD (S/P/Bld) [Vol rate/Area] mL/min/{1.73_m2} Normal >60 [facility] Comment on above: Result Comment: These [...] Performed By: #### C NARCISO, CP #### [facility] [address] [place] [address] Early Morning Babysitter: Chidi Richter MD Glucose [Mass/Vol] 95 mg/dL Normal 70-99 [facility] Comment on above: Performed By: #### C NARCISO, CP #### [facility] [address] [place] [address] Early Morning Babysitter: Chidi Richter MD Potassium [Moles/Vol] 4.1 mmol/L Normal 3.7-5.3 [facility] Comment on above: Performed By: #### C NARCISO, CP #### [facility] [address] [place] [address] Early Morning Babysitter: Chidi Richter MD Protein [Mass/Vol] 7.0 g/dL Normal 6.4-8.3 [facility] Comment on above: Performed By: #### C NARCISO, CP #### [facility] [place] [address] Early Morning Babysitter: Chidi Richter MD Sodium [Moles/Vol] 142 mmol/L Normal 135-144 [facility] Comment on above: Performed By: #### Kristen STUART, CP #### [facility] [facility] [place] [address] Early Morning Babysitter: Chidi Richter MD Urea nitrogen [Mass/Vol] 14 mg/dL Normal 6-20 [facility] Comment on above: Performed By: #### Kristen STUART, CP #### [facility] [place] [address] Early Morning Babysitter: Chidi Richter MD No Panel Informationon 11-30 No acute abnormaliti es seen in the head and cervical spine. [facility] RIS CONSOLIDATED EXAMINATION: CT OF THE CERVICAL [...] There is no prevertebral soft tissue swelling. [facility] R[facility] Alonso Jones MD - 12/01/2023 EXAMINATION: CT [...] in the head and cervical spine. [facility] No Panel InformationOrdered By: Alonso Jones on 12-01-2023 [facility] Work Phone: CBC AND AUTO DIFFon 11-30-19 24 ABSOLUTE BASOPHIL 0.0 X10E9/L Normal 0.0-0.2 [facility] Comment on above: Performed By: #### C BCA, CMP ####[facility] ([id number])[address] [place] [address] ABSOLUTE NEUTROPHIL 4.3 X10E9/L Normal 1.5-6.6 [facility] Comment on above: Performed By: #### C BCA, CMP ####[facility] ([id number])[address] [place] [address] Basophils/100 WBC (Bld) 0.6 % Normal [facility] Comment on above: Performed By: #### C BCA, CMP ####[facility] ([id number])[address] [place] [address] Eosinophils (Bld) [#/Vol] 0.1 10*3/uL Normal 0.0-0.4 [facility] Comment on above: Performed By: #### C BCA, CMP ####[facility] ([id number])[address] [address], [place] [address] Eosinophils/100 WBC (Bld) 1.1 % Normal [facility] Comment on above: Performed By: #### C BCA, CMP ####[facility] ([id number])[address] [address] Erythrocyte distribution width (RBC) [Ratio] 14.5 % Normal 11.5-15.0 [facility] Comment on above: Performed By: #### C BCA, CMP ####[facility] ([id number])[address] [address] [address] Hematocrit (Bld) [Volume fraction] 38.7 % Normal 35-47 [facility] Comment on above: Performed By: #### C BCA, CMP ####[facility] ([id number])[address] [address] [address] Hemoglobin (Bld) [Mass/Vol] 13.3 g/dL Normal 11.7-15.5 [facility] Comment on above: Performed By: #### C BCA, CMP ####[facility] ([id number])[address] [address], [place] [address] Lymphocytes (Bld) [#/Vol] 2.5 10*3/uL Normal 1.0-3.5 [facility] Comment on above: Performed By: #### C BCA, CMP ####[facility] ([id number])[address] [address] [address] Lymphocytes/100 WBC (Bld) 32.3 % Normal [facility] Comment on above: Performed By: #### C BCA, CMP ####[facility] ([id number])[address] [place] [address] MCH (RBC) [Entitic mass] 29.1 pg Normal 27-34 [facility] Comment on above: Performed By: #### C SLAVA, CMP ####[facility] ([id number])[address], [place] [address] MCHC (RBC) [Mass/Vol] 34.3 g/dL Normal 32-36 [facility] Comment on above: Performed By: #### C SLAVA, CMP ####[facility] ([id number])[address] [place] [address] MCV (RBC) [Entitic vol] 85 fL Normal 80-100 [facility] Comment on above: Performed By: #### C SLAVA, CMP ####[facility] ([id number])[address], [place] [address] Monocytes (Bld) [#/Vol] 0.7 10*3/uL Normal 0-0.9 [facility] Comment on above: Performed By: #### C SLAVA, CMP ####[facility] ([id number])[address] [address] Monocytes/100 WBC (Bld) 9.6 % Normal [facility] Comment on above: Performed By: #### C SLAVA, CMP ####[facility] ([id number])[address] [address] Neutrophils/100 WBC (Bld) 56.4 % Normal [facility] Comment on above: Performed By: #### C SLAVA, CMP ####[facility] ([id number])[address], [place] [address] Platelet mean volume (Bld) [Entitic vol] 7.9 fL Normal 7-12 [facility] Comment on above: Performed By: #### C SLAVA, CMP ####[facility] ([id number])[address] [address] Platelets (Bld) [#/Vol] 221 10*3/uL Normal 150-450 [facility] Comment on above: Performed By: #### C BCA, CMP ####[facility] ([id number])[address] [place] [address] RBC COUNT 4.57 X10E12/L Normal 3.80-5.20 [facility] Comment on above: Performed By: #### C BCA, CMP ####[facility] ([id number])[address] [address] [place] [address] WBC (Bld) [#/Vol] 7.7 10*3/uL Normal 4.0-11.0 [facility] Comment on above: Performed By: #### C BCA, CMP ####[facility] ([id number])[address] [address] [place] [address], [place] [address] COMPREHENSIVE METABOLIC PANE Basim 11-30-2023 Albumin [Mass/Vol] 4.4 g/dL Normal 3.2-5.3 [facility] Comment on above: Performed By: #### C BCA, CMP ####[facility] ([id number])[address] [address] [address] ALP [Catalytic activity/Vol] 45 U/L Normal 39-130 [facility] Comment on above: Performed By: #### C BCA, CMP ####[facility] ([id number])[address] [address] [address] ALT [Catalytic activity/Vol] 3 U/L Normal 0-31 [facility] Comment on above: Performed By: #### C BCA, CMP ####[facility] ([id number])[address] [place] [address] Anion gap [Moles/Vol] 8 mmol/L Normal 5-15 [facility] Comment on above: Performed By: #### C BCA, CMP ####[facility] ([id number])[address], [place] [address] AST [Catalytic activity/Vol] 14 U/L Normal 0-41 [facility] Comment on above: Performed By: #### C BCA, CMP ####[facility] ([id number])[address], [place] [address] Bilirubin [Mass/Vol] 0.6 mg/dL Normal 0.3-1.2 [facility] Comment on above: Performed By: #### C BCA, CMP ####[facility] ([id number])[address], [place] [address] Calcium [Mass/Vol] 9.7 mg/dL Normal 8.5-10.5 [facility] Comment on above: Performed By: #### C BCA, CMP ####[facility] ([id number])[address], [address], [place] [address] Chloride [Moles/Vol] 103 mmol/L Normal 98-109 [facility] Comment on above: Performed By: #### C BCA, CMP ####[facility] ([id number])[address], [address], [place] [address] CO2 [Moles/Vol] 31 mmol/L Normal 22-32 [facility] Comment on above: Performed By: #### C BCA, CMP ####[facility] ([id number])[address], [place] [address] Creatinine [Mass/Vol] 0.85 mg/dL Normal 0.40-1.00 [facility] Comment on above: Result Comment: METH OD TRACEABLE TO IDMS STANDARD Performed By: #### C BCA, CMP ####[facility] ([id number])[address], [place] [address] eGFR (CKD-EPI) NON-RACE DEPENDENT >90 Normal >59 [facility] Comment on above: Result Comment: Reported eGFR is based on the CKD-EPI 2020 equation that does not use a race coefficient. Performed By: #### C BCA, CMP ####[facility] ([id number])[address] [address] [address] Glucose [Mass/Vol] 98 mg/dL Normal 65-99 [facility] Comment on above: Performed By: #### C BCA, CMP ####[facility] ([id number])[address] [address] Potassium [Moles/Vol] 4.1 mmol/L Normal 3.5-5.0 [facility] Comment on above: Performed By: #### C BCA, CMP ####[facility] ([id number])[address] [address] Protein [Mass/Vol] 6.9 g/dL Normal 6.0-8.0 [facility] Comment on above: Performed By: #### C BCA, CMP ####[facility] ([id number])[address] [address] Sodium [Moles/Vol] 142 mmol/L Normal 134-146 [facility] Comment on above: Performed By: #### C BCA, CMP ####[facility] ([id number])[address] [address] Urea nitrogen [Mass/Vol] 15 mg/dL Normal 5-23 [facility] Comment on above: Performed By: #### C BCA, CMP ####[facility] ([id number])[address] [address] CBC AND AUTO DIFFon 11-29-19 24 ABSOLUTE BASOPHIL 0.0 X10E9/L Normal 0.0-0.2 [facility] Comment on above: Performed By: #### C BCA, CMP ####[facility] ([id number])[address], [place] [address] ABSOLUTE NEUTROPHIL 2.3 X10E9/L Normal 1.5-6.6 [facility] Comment on above: Performed By: #### C BCA, CMP ####[facility] ([id number])[address], [place] [address] Basophils/100 WBC (Bld) 0.5 % Normal [facility] Comment on above: Performed By: #### C SLAVA, CMP ####[facility] ([id number])[address] [address] [place] [address] Eosinophils (Bld) [#/Vol] 0.1 10*3/uL Normal 0.0-0.4 [facility] Comment on above: Performed By: #### C BCA, CMP ####[facility] ([id number])[address] [address] [place] [address] Eosinophils/100 WBC (Bld) 2.2 % Normal [facility] Comment on above: Performed By: #### C BCA, CMP ####[facility] ([id number])[address] [address], [place] [address] Erythrocyte distribution width (RBC) [Ratio] 14.1 % Normal 11.5-15.0 [facility] Comment on above: Performed By: #### C BCA, CMP ####[facility] ([id number])[address], [place] [address] Hematocrit (Bld) [Volume fraction] 39.7 % Normal 35-47 [facility] Comment on above: Performed By: #### C BCA, CMP ####[facility] ([id number])[address], [address], [place] [address] Hemoglobin (Bld) [Mass/Vol] 13.4 g/dL Normal 11.7-15.5 [facility] Comment on above: Performed By: #### C BCA, CMP ####[facility] ([id number])[address], [place] [address] Lymphocytes (Bld) [#/Vol] 2.6 10*3/uL Normal 1.0-3.5 [facility] Comment on above: Performed By: #### C BCA, CMP ####[facility] ([id number])[address], [place] [address] Lymphocytes/100 WBC (Bld) 46.1 % Normal [facility] Comment on above: Performed By: #### C BCA, CMP ####[facility] ([id number])[address], [place] [address] MCH (RBC) [Entitic mass] 29.1 pg Normal 27-34 [facility] Comment on above: Performed By: #### C BCA, CMP ####[facility] ([id number])[address], [place] [address] MCHC (RBC) [Mass/Vol] 33.8 g/dL Normal 32-36 [facility] Comment on above: Performed By: #### C BCA, CMP ####[facility] ([id number])[address] [address], [place] [address] MCV (RBC) [Entitic vol] 86 fL Normal 80-100 [facility] Comment on above: Performed By: #### C BCA, CMP ####[facility] ([id number])[address] [address], [place] [address] Monocytes (Bld) [#/Vol] 0.5 10*3/uL Normal 0-0.9 [facility] Comment on above: Performed By: #### C BCA, CMP ####[facility] ([id number])[address] [address] [place] [address] Monocytes/100 WBC (Bld) 9.7 % Normal [facility] Comment on above: Performed By: #### C BCA, CMP ####[facility] ([id number])[address], [place] [address] Neutrophils/100 WBC (Bld) 41.5 % Normal [facility] Comment on above: Performed By: #### C BCA, CMP ####[facility] ([id number])[address] [address] [place] [address] Platelet mean volume (Bld) [Entitic vol] 8.2 fL Normal 7-12 [facility] Comment on above: Performed By: #### C SLAVA, CMP ####[facility] ([id number])[address] [address] [place] [address] Platelets (Bld) [#/Vol] 205 10*3/uL Normal 150-450 [facility] Comment on above: Performed By: #### C SLAVA, CMP ####[facility] ([id number])[address] [address], [place] [address] RBC COUNT 4.60 X10E12/L Normal 3.80-5.20 [facility] Comment on above: Performed By: #### C BCA, CMP ####[facility] ([id number])[address] [address] [place] [address] WBC (Bld) [#/Vol] 5.7 10*3/uL Normal 4.0-11.0 [facility] Comment on above: Performed By: #### C BCA, CMP ####[facility] ([id number])[address], [place] [address] COMPREHENSIVE METABOLIC PANE [facility] 11-29-2023 Albumin [Mass/Vol] 4.2 g/dL Normal 3.2-5.3 [facility] Comment on above: Performed By: #### C BCA, CMP ####[facility] ([id number])[address], [place] [address] ALP [Catalytic activity/Vol] 44 U/L Normal 39-130 [facility] Comment on above: Performed By: #### C BCA, CMP ####[facility] ([id number])[address], [place] [address] ALT [Catalytic activity/Vol] 3 U/L Normal 0-31 [facility] Comment on above: Performed By: #### C BCA, CMP ####[facility] ([id number])[address], [place] [address] Anion gap [Moles/Vol] 9 mmol/L Normal 5-15 [facility] Comment on above: Performed By: #### C BCA, CMP ####[facility] ([id number])[address], [place] [address] AST [Catalytic activity/Vol] 15 U/L Normal 0-41 [facility] Comment on above: Performed By: #### C BCA, CMP ####[facility] ([id number])[address], [place] [address] Bilirubin [Mass/Vol] 0.5 mg/dL Normal 0.3-1.2 [facility] Comment on above: Performed By: #### C BCA, CMP ####[facility] ([id number])[address], [place] [address] Calcium [Mass/Vol] 9.6 mg/dL Normal 8.5-10.5 [facility] Comment on above: Performed By: #### C BCA, CMP ####[facility] ([id number])[address], [place] [address] Chloride [Moles/Vol] 104 mmol/L Normal 98-109 [facility] Comment on above: Performed By: #### C BCA, CMP ####[facility] ([id number])[address] [address], [place] [address] CO2 [Moles/Vol] 29 mmol/L Normal 22-32 [facility] Comment on above: Performed By: #### C BCA, CMP ####[facility] ([id number])[address] [address] Creatinine [Mass/Vol] 0.92 mg/dL Normal 0.40-1.00 [facility] Comment on above: Result Comment: METH OD TRACEABLE TO IDMS STANDARD Performed By: #### C BCA, CMP ####[facility] ([id number])[address] [address] eGFR (CKD-EPI) NON-RACE DEPENDENT >90 Normal >59 [facility] Comment on above: Result Comment: Reported eGFR is based on the CKD-EPI 2020 equation that does not use a race coefficient. Performed By: #### C BCA, CMP ####[facility] ([id number])[address] [address] [place] [address] Glucose [Mass/Vol] 92 mg/dL Normal 65-99 [facility] Comment on above: Performed By: #### C BCA, CMP ####[facility] ([id number])[address] [address] Potassium [Moles/Vol] 4.0 mmol/L Normal 3.5-5.0 [facility] Comment on above: Performed By: #### C BCA, CMP ####[facility] ([id number])[address] [address] [place] [address] Protein [Mass/Vol] 7.0 g/dL Normal 6.0-8.0 [facility] Comment on above: Performed By: #### C BCA, CMP ####[facility] ([id number])[address], [place] [address] Sodium [Moles/Vol] 142 mmol/L Normal 134-146 [facility] Comment on above: Performed By: #### C BCA, CMP ####[facility] ([id number])[address], [place] [address] Urea nitrogen [Mass/Vol] 17 mg/dL Normal 5-23 [facility] Comment on above: Performed By: #### C BCA, CMP ####[facility] ([id number])[address], [place] [address] Glucose Glucometer (BldC) [M ass/Vol]on 11-29-2023 Glucose [Mass/Vol] 84 mg/dL Normal 65-99 [facility] CBC AND AUTO DIFFon 11-28-19 ABSOLUTE BASOPHIL 0.0 X10E9/L Normal 0.0-0.2 [facility] Comment on above: Performed By: #### C BCA, CMP ####[facility] ([id number])[address], [place] [address] ABSOLUTE NEUTROPHIL 3.0 X10E9/L Normal 1.5-6.6 [facility] Comment on above: Performed By: #### C BCA, CMP ####[facility] ([id number])[address], [place] [address] Basophils/100 WBC (Bld) 0.6 % Normal [facility] Comment on above: Performed By: #### C BCA, CMP ####[facility] ([id number])[address], [place] [address] Eosinophils (Bld) [#/Vol] 0.1 10*3/uL Normal 0.0-0.4 [facility] Comment on above: Performed By: #### C BCA, CMP ####[facility] ([id number])[address] [address], [place] [address] Eosinophils/100 WBC (Bld) 1.0 % Normal [facility] Comment on above: Performed By: #### C BCA, CMP ####[facility] ([id number])[address] [address] Erythrocyte distribution width (RBC) [Ratio] 14.6 % Normal 11.5-15.0 [facility] Comment on above: Performed By: #### C SLAVA, CMP ####[facility] ([id number])[address], [place] [address] Hematocrit (Bld) [Volume fraction] 40.1 % Normal 35-47 [facility] Comment on above: Performed By: #### C SLAVA, CMP ####[facility] ([id number])[address] [address], [place] [address] Hemoglobin (Bld) [Mass/Vol] 13.7 g/dL Normal 11.7-15.5 [facility] Comment on above: Performed By: #### C SLAVA, CMP ####[facility] ([id number])[address] [address], [place] [address] Lymphocytes (Bld) [#/Vol] 2.8 10*3/uL Normal 1.0-3.5 [facility] Comment on above: Performed By: #### C SLAVA, CMP ####[facility] ([id number])[address], [place] [address] Lymphocytes/100 WBC (Bld) 43.5 % Normal [facility] Comment on above: Performed By: #### C BCA, CMP ####[facility] ([id number])[address] [place] [address] MCH (RBC) [Entitic mass] 29.3 pg Normal 27-34 [facility] Comment on above: Performed By: #### C BCA, CMP ####[facility] ([id number])[address], [place] [address] MCHC (RBC) [Mass/Vol] 34.1 g/dL Normal 32-36 [facility] Comment on above: Performed By: #### C BCA, CMP ####[facility] ([id number])[address] [place] [address] MCV (RBC) [Entitic vol] 86 fL Normal 80-100 [facility] Comment on above: Performed By: #### C BCA, CMP ####[facility] ([id number])[address] [place] [address] Monocytes (Bld) [#/Vol] 0.5 10*3/uL Normal 0-0.9 [facility] Comment on above: Performed By: #### C BCA, CMP ####[facility] ([id number])[address] [place] [address] Monocytes/100 WBC (Bld) 8.2 % Normal [facility] Comment on above: Performed By: #### C BCA, CMP ####[facility] ([id number])[address] [place] [address] Neutrophils/100 WBC (Bld) 46.7 % Normal [facility] Comment on above: Performed By: #### C BCA, CMP ####[facility] ([id number])[address], [place] [address] Platelet mean volume (Bld) [Entitic vol] 8.8 fL Normal 7-12 [facility] Comment on above: Performed By: #### C BCA, CMP ####[facility] ([id number])[address], [place] [address] Platelets (Bld) [#/Vol] 220 10*3/uL Normal 150-450 [facility] Comment on above: Performed By: #### C BCA, CMP ####[facility] ([id number])[address] [address] RBC COUNT 4.67 X10E12/L Normal 3.80-5.20 [facility] Comment on above: Performed By: #### C BCA, CMP ####[facility] ([id number])[address] [address] [place] [address] WBC (Bld) [#/Vol] 6.4 10*3/uL Normal 4.0-11.0 [facility] Comment on above: Performed By: #### C BCA, CMP ####[facility] ([id number])[address] [address], [place] [address] COMPREHENSIVE METABOLIC PANE Basim 11-28-2023 Albumin [Mass/Vol] 4.8 g/dL Normal 3.2-5.3 [facility] Comment on above: Performed By: #### C BCA, CMP ####[facility] ([id number])[address] [address], [place] [address] ALP [Catalytic activity/Vol] 41 U/L Normal 39-130 [facility] Comment on above: Performed By: #### C BCA, CMP ####[facility] ([id number])[address] [address] [place] [address] ALT [Catalytic activity/Vol] 4 U/L Normal 0-31 [facility] Comment on above: Performed By: #### C BCA, CMP ####[facility] ([id number])[address] [address] Anion gap [Moles/Vol] 12 mmol/L Normal 5-15 [facility] Comment on above: Performed By: #### C BCA, CMP ####[facility] ([id number])[address], [place] [address] AST [Catalytic activity/Vol] 29 U/L Normal 0-41 [facility] Comment on above: Performed By: #### C BCA, CMP ####[facility] ([id number])[address], [place] [address] Bilirubin [Mass/Vol] 0.8 mg/dL Normal 0.3-1.2 [facility] Comment on above: Performed By: #### C BCA, CMP ####[facility] ([id number])[address] [address], [place] [address] Calcium [Mass/Vol] 9.4 mg/dL Normal 8.5-10.5 [facility] Comment on above: Performed By: #### C BCA, CMP ####[facility] ([id number])[address] [address], [place] [address] Chloride [Moles/Vol] 104 mmol/L Normal 98-109 [facility] Comment on above: Performed By: #### C BCA, CMP ####[facility] ([id number])[address] [address], [place] [address] CO2 [Moles/Vol] 25 mmol/L Normal 22-32 [facility] Comment on above: Performed By: #### C BCA, CMP ####[facility] ([id number])[address] [address], [place] [address] Creatinine [Mass/Vol] 0.82 mg/dL Normal 0.40-1.00 [facility] Comment on above: Result Comment: METH OD TRACEABLE TO IDMS STANDARD Performed By: #### C BCA, CMP ####[facility] ([id number])[address], [place] [address] eGFR (CKD-EPI) NON-RACE DEPENDENT >90 Normal >59 [facility] Comment on above: Result Comment: Reported eGFR is based on the CKD-EPI 2020 equation that does not use a race coefficient. Performed By: #### C SLAVA, CMP ####[facility] ([id number])[address], [place] [address] Glucose [Mass/Vol] 81 mg/dL Normal 65-99 [facility] Comment on above: Performed By: #### C SLAVA, CMP ####[facility] ([id number])[address], [place] [address] Potassium [Moles/Vol] 5.2 mmol/L High 3.5-5.0 [facility] Comment on above: Result Comment: SPEC IMEN HEMOLYZED, RESULTS INCREASED MARKEDLY HEMOLYZED Performed By: #### C SLAVA, CMP ####[facility] ([id number])[address], [place] [address] Protein [Mass/Vol] 7.4 g/dL Normal 6.0-8.0 [facility] Comment on above: Performed By: #### C SLAVA, CMP ####[facility] ([id number])[address], [place] [address] Sodium [Moles/Vol] 141 mmol/L Normal 134-146 [facility] Comment on above: Result Comment: RESU LTS QUESTIONABLE DUE TO HEMOLYSIS MARKEDLY HEMOLYZED Performed By: #### C SLAVA, CMP ####[facility] ([id number])[address], [place] [address] Urea nitrogen [Mass/Vol] 21 mg/dL Normal 5-23 [facility] Comment on above: Performed By: #### C BCA, CMP ####[facility] ([id number])[address], [place] [address] CBC AND AUTO DIFFon 11-27-19 24 ABSOLUTE BASOPHIL 0.0 X10E9/L Normal 0.0-0.2 [facility] Comment on above: Performed By: #### C BCA, CMP ####[facility] ([id number])[address] [address], [place] [address] ABSOLUTE NEUTROPHIL 4.7 X10E9/L Normal 1.5-6.6 [facility] Comment on above: Performed By: #### C BCA, CMP ####[facility] ([id number])[address] [address], [place] [address] Basophils/100 WBC (Bld) 0.5 % Normal [facility] Comment on above: Performed By: #### C BCA, CMP ####[facility] ([id number])[address] [address], [place] [address] Eosinophils (Bld) [#/Vol] 0.1 10*3/uL Normal 0.0-0.4 [facility] Comment on above: Performed By: #### C BCA, CMP ####[facility] ([id number])[address] [address], [place] [address] Eosinophils/100 WBC (Bld) 1.3 % Normal [facility] Comment on above: Performed By: #### C BCA, CMP ####[facility] ([id number])[address] [address], [place] [address] Erythrocyte distribution width (RBC) [Ratio] 14.1 % Normal 11.5-15.0 [facility] Comment on above: Performed By: #### C BCA, CMP ####[facility] ([id number])[address] [address] [place] [address] Hematocrit (Bld) [Volume fraction] 41.2 % Normal 35-47 [facility] Comment on above: Performed By: #### C BCA, CMP ####[facility] ([id number])[address] [place] [address] Hemoglobin (Bld) [Mass/Vol] 13.9 g/dL Normal 11.7-15.5 [facility] Comment on above: Performed By: #### C SLAVA, CMP ####[facility] ([id number])[address] [address] Lymphocytes (Bld) [#/Vol] 3.2 10*3/uL Normal 1.0-3.5 [facility] Comment on above: Performed By: #### C SLAVA, CMP ####[facility] ([id number])[address], [place] [address] Lymphocytes/100 WBC (Bld) 36.0 % Normal [facility] Comment on above: Performed By: #### C SLAVA, CMP ####[facility] ([id number])[address] [address] [address] MCH (RBC) [Entitic mass] 28.8 pg Normal 27-34 [facility] Comment on above: Performed By: #### C SLAVA, CMP ####[facility] ([id number])[address], [address] [address] MCHC (RBC) [Mass/Vol] 33.6 g/dL Normal 32-36 [facility] Comment on above: Performed By: #### C SLAVA, CMP ####[facility] ([id number])[address] [address] [address] MCV (RBC) [Entitic vol] 86 fL Normal 80-100 [facility] Comment on above: Performed By: #### C BCA, CMP ####[facility] ([id number])[address] [address] [address] Monocytes (Bld) [#/Vol] 0.7 10*3/uL Normal 0-0.9 [facility] Comment on above: Performed By: #### C BCA, CMP ####[facility] ([id number])[address], [address] [address] Monocytes/100 WBC (Bld) 8.3 % Normal [facility] Comment on above: Performed By: #### C BCA, CMP ####[facility] ([id number])[address], [address] [address] Neutrophils/100 WBC (Bld) 53.9 % Normal [facility] Comment on above: Performed By: #### C BCA, CMP ####[facility] ([id number])[address], [address] [place] [address], [place] [address] Platelet mean volume (Bld) [Entitic vol] 8.2 fL Normal 7-12 [facility] Comment on above: Performed By: #### C SLAVA, CMP ####[facility] ([id number])[address] [address] [place] [address], [place] [address] Platelets (Bld) [#/Vol] 258 10*3/uL Normal 150-450 [facility] Comment on above: Performed By: #### C SLAVA, CMP ####[facility] ([id number])[address] [place] [address] RBC COUNT 4.81 X10E12/L Normal 3.80-5.20 [facility] Comment on above: Performed By: #### C BCA, CMP ####[facility] ([id number])[address] [address] [place] [address], [place] [address] WBC (Bld) [#/Vol] 8.8 10*3/uL Normal 4.0-11.0 [facility] Comment on above: Performed By: #### C BCA, CMP ####[facility] ([id number])[address] [place] [address] COMPREHENSIVE METABOLIC PANE Basim 11-27-2023 Albumin [Mass/Vol] 4.7 g/dL Normal 3.2-5.3 [facility] Comment on above: Performed By: #### C BCA, CMP ####[facility] ([id number])[address], [address], [place] [address] ALP [Catalytic activity/Vol] 48 U/L Normal 39-130 [facility] Comment on above: Performed By: #### C BCA, CMP ####[facility] ([id number])[address], [place] [address] ALT [Catalytic activity/Vol] 4 U/L Normal 0-31 [facility] Comment on above: Performed By: #### C BCA, CMP ####[facility] ([id number])[address], [place] [address] Anion gap [Moles/Vol] 11 mmol/L Normal 5-15 [facility] Comment on above: Performed By: #### C BCA, CMP ####[facility] ([id number])[address], [place] [address] AST [Catalytic activity/Vol] 15 U/L Normal 0-41 [facility] Comment on above: Performed By: #### C BCA, CMP ####[facility] ([id number])[address], [place] [address] Bilirubin [Mass/Vol] 0.6 mg/dL Normal 0.3-1.2 [facility] Comment on above: Performed By: #### C BCA, CMP ####[facility] ([id number])[address], [address], [place] [address] Calcium [Mass/Vol] 9.8 mg/dL Normal 8.5-10.5 [facility] Comment on above: Performed By: #### C BCA, CMP ####[facility] ([id number])[address], [place] [address] Chloride [Moles/Vol] 103 mmol/L Normal 98-109 [facility] Comment on above: Performed By: #### C BCA, CMP ####[facility] ([id number])[address] [address], [place] [address] CO2 [Moles/Vol] 24 mmol/L Normal 22-32 [facility] Comment on above: Performed By: #### C BCA, CMP ####[facility] ([id number])[address] [address] [place] [address] Creatinine [Mass/Vol] 0.76 mg/dL Normal 0.40-1.00 [facility] Comment on above: Result Comment: METH OD TRACEABLE TO IDMS STANDARD Performed By: #### C BCA, CMP ####[facility] ([id number])[address] [address] [place] [address] eGFR (CKD-EPI) NON-RACE DEPENDENT >90 Normal >59 [facility] Comment on above: Result Comment: Reported eGFR is based on the CKD-EPI 2020 equation that does not use a race coefficient. Performed By: #### C BCA, CMP ####[facility] ([id number])[address] [address], [place] [address] Glucose [Mass/Vol] 83 mg/dL Normal 65-99 [facility] Comment on above: Performed By: #### C BCA, CMP ####[facility] ([id number])[address] [address], [place] [address] Potassium [Moles/Vol] 3.8 mmol/L Normal 3.5-5.0 [facility] Comment on above: Performed By: #### C BCA, CMP ####[facility] ([id number])[address] [address], [place] [address] Protein [Mass/Vol] 7.4 g/dL Normal 6.0-8.0 [facility] Comment on above: Performed By: #### C BCA, CMP ####[facility] ([id number])[address], [address] [place] [address] Sodium [Moles/Vol] 138 mmol/L Normal 134-146 [facility] Comment on above: Performed By: #### C BCA, CMP ####[facility] ([id number])[address], [place] [address] Urea nitrogen [Mass/Vol] 22 mg/dL Normal 5-23 [facility] Comment on above: Performed By: #### C BCA, CMP ####[facility] ([id number])[address], [address] [place] [address] CBC AND AUTO DIFFon 11-26-19 24 ABSOLUTE BASOPHIL 0.0 X10E9/L Normal 0.0-0.2 [facility] Comment on above: Performed By: #### C BCA, CMP ####[facility] ([id number])[address] [address], [place] [address] ABSOLUTE NEUTROPHIL 3.0 X10E9/L Normal 1.5-6.6 [facility] Comment on above: Performed By: #### C BCA, CMP ####[facility] ([id number])[address] [address] [place] [address] Basophils/100 WBC (Bld) 0.7 % Normal [facility] Comment on above: Performed By: #### C BCA, CMP ####[facility] ([id number])[address] [address] Eosinophils (Bld) [#/Vol] 0.0 10*3/uL Normal 0.0-0.4 [facility] Comment on above: Performed By: #### C BCA, CMP ####[facility] ([id number])[address], [place] [address] Eosinophils/100 WBC (Bld) 0.7 % Normal [facility] Comment on above: Performed By: #### C BCA, CMP ####[facility] ([id number])[address] [place] [address] Erythrocyte distribution width (RBC) [Ratio] 14.6 % Normal 11.5-15.0 [facility] Comment on above: Performed By: #### C BCA, CMP ####[facility] ([id number])[address] [address], [place] [address] Hematocrit (Bld) [Volume fraction] 41.1 % Normal 35-47 [facility] Comment on above: Performed By: #### C BCA, CMP ####[facility] ([id number])[address] [address], [place] [address] Hemoglobin (Bld) [Mass/Vol] 13.6 g/dL Normal 11.7-15.5 [facility] Comment on above: Performed By: #### C BCA, CMP ####[facility] ([id number])[address] [address], [place] [address] Lymphocytes (Bld) [#/Vol] 2.7 10*3/uL Normal 1.0-3.5 [facility] Comment on above: Performed By: #### C BCA, CMP ####[facility] ([id number])[address] [address], [place] [address] Lymphocytes/100 WBC (Bld) 41.7 % Normal [facility] Comment on above: Performed By: #### C BCA, CMP ####[facility] ([id number])[address] [address] [place] [address] MCH (RBC) [Entitic mass] 28.9 pg Normal 27-34 [facility] Comment on above: Performed By: #### C BCA, CMP ####[facility] ([id number])[address], [place] [address] MCHC (RBC) [Mass/Vol] 33.2 g/dL Normal 32-36 [facility] Comment on above: Performed By: #### C SLAVA, CMP ####[facility] ([id number])[address], [place] [address] MCV (RBC) [Entitic vol] 87 fL Normal 80-100 [facility] Comment on above: Performed By: #### C SLAVA, CMP ####[facility] ([id number])[address], [place] [address] Monocytes (Bld) [#/Vol] 0.7 10*3/uL Normal 0-0.9 [facility] Comment on above: Performed By: #### C SLAVA, CMP ####[facility] ([id number])[address], [place] [address] Monocytes/100 WBC (Bld) 10.5 % Normal [facility] Comment on above: Performed By: #### C SLAVA, CMP ####[facility] ([id number])[address], [place] [address] Neutrophils/100 WBC (Bld) 46.4 % Normal [facility] Comment on above: Performed By: #### C SLAVA, CMP ####[facility] ([id number])[address], [place] [address] Platelet mean volume (Bld) [Entitic vol] 8.2 fL Normal 7-12 [facility] Comment on above: Performed By: #### C SLAVA, CMP ####[facility] ([id number])[address], [place] [address] Platelets (Bld) [#/Vol] 226 10*3/uL Normal 150-450 [facility] Comment on above: Performed By: #### C BCA, CMP ####[facility] ([id number])[address], [place] [address] RBC COUNT 4.72 X10E12/L Normal 3.80-5.20 [facility] Comment on above: Performed By: #### C BCA, CMP ####[facility] ([id number])[address], [address] [place] [address] WBC (Bld) [#/Vol] 6.6 10*3/uL Normal 4.0-11.0 [facility] Comment on above: Performed By: #### C BCA, CMP ####[facility] ([id number])[address], [address], [place] [address] COMPREHENSIVE METABOLIC PANE Basim 11-26-2023 Albumin [Mass/Vol] 4.7 g/dL Normal 3.2-5.3 [facility] Comment on above: Performed By: #### C BCA, CMP ####[facility] ([id number])[address] [address] [place] [address] ALP [Catalytic activity/Vol] 48 U/L Normal 39-130 [facility] Comment on above: Performed By: #### C BCA, CMP ####[facility] ([id number])[address] [address] [place] [address] ALT [Catalytic activity/Vol] 4 U/L Normal 0-31 [facility] Comment on above: Performed By: #### C BCA, CMP ####[facility] ([id number])[address], [address] [place] [address] Anion gap [Moles/Vol] 12 mmol/L Normal 5-15 [facility] Comment on above: Performed By: #### C BCA, CMP ####[facility] ([id number])[address] [address] [place] [address], [place] [address] AST [Catalytic activity/Vol] 14 U/L Normal 0-41 [facility] Comment on above: Performed By: #### C BCA, CMP ####[facility] ([id number])[address] [address] [address] Bilirubin [Mass/Vol] 0.8 mg/dL Normal 0.3-1.2 [facility] Comment on above: Performed By: #### C BCA, CMP ####[facility] ([id number])[address] [address], [place] [address] Calcium [Mass/Vol] 9.8 mg/dL Normal 8.5-10.5 [facility] Comment on above: Performed By: #### C BCA, CMP ####[facility] ([id number])[address] [address], [place] [address] Chloride [Moles/Vol] 106 mmol/L Normal 98-109 [facility] Comment on above: Performed By: #### C BCA, CMP ####[facility] ([id number])[address] [address] CO2 [Moles/Vol] 24 mmol/L Normal 22-32 [facility] Comment on above: Performed By: #### C BCA, CMP ####[facility] ([id number])[address] [place] [address] Creatinine [Mass/Vol] 0.78 mg/dL Normal 0.40-1.00 [facility] Comment on above: Result Comment: METH OD TRACEABLE TO IDMS STANDARD Performed By: #### C BCA, CMP ####[facility] ([id number])[address] [address] [address] eGFR (CKD-EPI) NON-RACE DEPENDENT >90 Normal >59 [facility] Comment on above: Result Comment: Reported eGFR is based on the CKD-EPI 2020 equation that does not use a race coefficient. Performed By: #### C BCA, CMP ####[facility] ([id number])[address] [address] [address] Glucose [Mass/Vol] 73 mg/dL Normal 65-99 [facility] Comment on above: Performed By: #### C BCA, CMP ####[facility] ([id number])[address] [address], [place] [address] Potassium [Moles/Vol] 4.3 mmol/L Normal 3.5-5.0 [facility] Comment on above: Performed By: #### C BCA, CMP ####[facility] ([id number])[address] [address] [place] [address] Protein [Mass/Vol] 7.3 g/dL Normal 6.0-8.0 [facility] Comment on above: Performed By: #### C BCA, CMP ####[facility] ([id number])[address] [address] [place] [address] Sodium [Moles/Vol] 142 mmol/L Normal 134-146 [facility] Comment on above: Performed By: #### C BCA, CMP ####[facility] ([id number])[address] [address] Urea nitrogen [Mass/Vol] 16 mg/dL Normal 5-23 [facility] Comment on above: Performed By: #### C BCA, CMP ####[facility] ([id number])[address] [address] CBC AND AUTO DIFFon 11-25-19 24 ABSOLUTE BASOPHIL 0.0 X10E9/L Normal 0.0-0.2 [facility] Comment on above: Performed By: #### C MP, CBCA ####[facility] ([id number])[address] [address] ABSOLUTE NEUTROPHIL 4.0 X10E9/L Normal 1.5-6.6 [facility] Comment on above: Performed By: #### C MP, CBCA ####[facility] ([id number])[address] [address] Basophils/100 WBC (Bld) 0.4 % Normal [facility] Comment on above: Performed By: #### C MP, CBCA ####[facility] ([id number])[address] [address] Eosinophils (Bld) [#/Vol] 0.0 10*3/uL Normal 0.0-0.4 [facility] Comment on above: Performed By: #### C MP, CBCA ####[facility] ([id number])[address] [address] Eosinophils/100 WBC (Bld) 0.5 % Normal [facility] Comment on above: Performed By: #### C MP, CBCA ####[facility] ([id number])[address] [address] Erythrocyte distribution width (RBC) [Ratio] 14.6 % Normal 11.5-15.0 [facility] Comment on above: Performed By: #### C MP, CBCA ####[facility] ([id number])[address] [address] Hematocrit (Bld) [Volume fraction] 40.1 % Normal 35-47 [facility] Comment on above: Performed By: #### C MP, CBCA ####[facility] ([id number])[address] [address] Hemoglobin (Bld) [Mass/Vol] 13.6 g/dL Normal 11.7-15.5 [facility] Comment on above: Performed By: #### C MP, CBCA ####[facility] ([id number])[address] [place] [address] Lymphocytes (Bld) [#/Vol] 2.7 10*3/uL Normal 1.0-3.5 [facility] Comment on above: Performed By: #### C MP, CBCA ####[facility] ([id number])[address] [place] [address] Lymphocytes/100 WBC (Bld) 37.3 % Normal [facility] Comment on above: Performed By: #### C MP, CBCA ####[facility] ([id number])[address] [address] MCH (RBC) [Entitic mass] 29.0 pg Normal 27-34 [facility] Comment on above: Performed By: #### C MP, CBCA ####[facility] ([id number])[address] [address] MCHC (RBC) [Mass/Vol] 33.8 g/dL Normal 32-36 [facility] Comment on above: Performed By: #### C MP, CBCA ####[facility] ([id number])[address] [address] [address] MCV (RBC) [Entitic vol] 86 fL Normal 80-100 [facility] Comment on above: Performed By: #### C MP, CBCA ####[facility] ([id number])[address] [place] [address] Monocytes (Bld) [#/Vol] 0.5 10*3/uL Normal 0-0.9 [facility] Comment on above: Performed By: #### C MP, CBCA ####[facility] ([id number])[address] [place] [address] Monocytes/100 WBC (Bld) 6.8 % Normal [facility] Comment on above: Performed By: #### C MP, CBCA ####[facility] ([id number])[address] [address] Neutrophils/100 WBC (Bld) 55.0 % Normal [facility] Comment on above: Performed By: #### C MP, CBCA ####[facility] ([id number])[address] [address] [place] [address] Platelet mean volume (Bld) [Entitic vol] 8.0 fL Normal 7-12 [facility] Comment on above: Performed By: #### C MP, CBCA ####[facility] ([id number])[address] [address] Platelets (Bld) [#/Vol] 239 10*3/uL Normal 150-450 [facility] Comment on above: Performed By: #### C MP, CBCA ####[facility] ([id number])[address] [address], [place] [address] RBC COUNT 4.67 X10E12/L Normal 3.80-5.20 [facility] Comment on above: Performed By: #### C MP, CBCA ####[facility] ([id number])[address] [address] WBC (Bld) [#/Vol] 7.3 10*3/uL Normal 4.0-11.0 [facility] Comment on above: Performed By: #### C MP, CBCA ####[facility] ([id number])[address] [address] COMPREHENSIVE METABOLIC PANE Basim 11-25-2023 Albumin [Mass/Vol] 4.4 g/dL Normal 3.2-5.3 [facility] Comment on above: Performed By: #### C MP, CBCA ####[facility] ([id number])[address], [place] [address] ALP [Catalytic activity/Vol] 46 U/L Normal 39-130 [facility] Comment on above: Performed By: #### C DANIEL CBCA ####[facility] ([id number])[address], [place] [address] ALT [Catalytic activity/Vol] 5 U/L Normal 0-31 [facility] Comment on above: Performed By: #### C DAINEL CBCA ####[facility] ([id number])[address], [place] [address] Anion gap [Moles/Vol] 7 mmol/L Normal 5-15 [facility] Comment on above: Performed By: #### C DANIEL CBCA ####[facility] ([id number])[address], [place] [address] AST [Catalytic activity/Vol] 15 U/L Normal 0-41 [facility] Comment on above: Performed By: #### C DANIEL CBCA ####[facility] ([id number])[address], [place] [address] Bilirubin [Mass/Vol] 0.7 mg/dL Normal 0.3-1.2 [facility] Comment on above: Performed By: #### C DANIEL CBCA ####[facility] ([id number])[address], [place] [address] Calcium [Mass/Vol] 9.5 mg/dL Normal 8.5-10.5 [facility] Comment on above: Performed By: #### C DANIEL CBCA ####[facility] ([id number])[address], [place] [address] Chloride [Moles/Vol] 108 mmol/L Normal 98-109 [facility] Comment on above: Performed By: #### C DANIEL CBCA ####[facility] ([id number])[address] [address], [place] [address] CO2 [Moles/Vol] 28 mmol/L Normal 22-32 [facility] Comment on above: Performed By: #### C DANIEL CBCA ####[facility] ([id number])[address] [address] [place] [address] Creatinine [Mass/Vol] 0.78 mg/dL Normal 0.40-1.00 [facility] Comment on above: Result Comment: METH OD TRACEABLE TO IDMS STANDARD Performed By: #### C JAILYN SANCHEZ ####[facility] ([id number])[address] [address] [place] [address] eGFR (CKD-EPI) NON-RACE DEPENDENT >90 Normal >59 [facility] Comment on above: Result Comment: Reported eGFR is based on the CKD-EPI 2020 equation that does not use a race coefficient. Performed By: #### C DANIEL CBCJesús ####[facility] ([id number])[address] [address], [place] [address] Glucose [Mass/Vol] 102 mg/dL High 65-99 [facility] Comment on above: Performed By: #### C JAILYN SANCHEZ ####[facility] ([id number])0 [address] [address], [place] [address] Potassium [Moles/Vol] 4.1 mmol/L Normal 3.5-5.0 [facility] Comment on above: Performed By: #### C LUIS ALFREDO SANCHEZA ####[facility] ([id number])0 [address] [address], [place] [address] Protein [Mass/Vol] 7.5 g/dL Normal 6.0-8.0 [facility] Comment on above: Performed By: #### C MP, CBCA ####[facility] ([id number])[address], [address] [place] [address] Sodium [Moles/Vol] 143 mmol/L Normal 134-146 [facility] Comment on above: Performed By: #### C MP, CBCA ####[facility] ([id number])[address], [address] [place] [id number] Urea nitrogen [Mass/Vol] 11 mg/dL Normal 5-23 [facility] Comment on above: Performed By: #### C DANIEL, CBCA ####[facility] ([id number])[address], [address] [place] [address] DRUG SCREEN, URINEon 024 AMPHETAMINE/METHAMP Negative Normal NEG [facility] Comment on above: Result Comment: AMPH /METH screening cut off = 1000 ng/mL Performed By: #### D HIGGINS ####[facility] ([id number])[address], [address] [place] [address] BARBITURATES Negative Normal NEG [facility] Comment on above: Result Comment: Dominique iturates screening cut off value = 200 ng/mL Performed By: #### D HIGGINS ####[facility] ([id number])[address] [place] [place] [address] BENZODIAZEPINES Positive Abnormal NEG [facility] Comment on above: Result Comment: Conf irmation available upon request. Benzodiazepines screening cut off value = 200 ng/mL Performed By: #### D HIGGINS ####[facility] ([id number])[address], [address] [place] [address] CANNABINOIDS Positive Abnormal NEG [facility] Comment on above: Result Comment: Conf irmation available upon request. Cannabinoids/THC screening cut off value = 50 ng/mL Performed By: #### D HIGGINS ####[facility] ([id number])[address], [address] [place] [address] COCAINE METABOLITE Negative Normal NEG [facility] Comment on above: Result Comment: Coca ine screening cut off value = 300 ng/mL Performed By: #### D HIGGINS ####[facility] ([id number])[address], [address] [place] [address] ECSTASY Negative Normal [facility] Comment on above: Result Comment: Ecst asy screening cut off value = 500 ng/mL This report is intended for use in clinical monitoring or management of patients. Performed By: #### D HIGGINS ####[facility] ([id number])[address], [address] [place] [address] METHADONE Negative Normal [facility] Comment on above: Result Comment: Meth adone screening cut off value = 300 ng/mL. Performed By: #### D HIGGINS ####[facility] ([id number])[address] [address] OPIATES Negative Normal [facility] Comment on above: Result Comment: Opia mamta screening cut off value = 300 ng/mL NOTE: This test is used for the detection of codeine, hydrocodone (>1000 ng/mL), morphine and hydromorphone (>900 ng/mL) in urine. Performed By: #### D HIGGINS ####[facility] ([id number])[address], [address] [place] [address] OXYCODONE Negative Normal NEG [facility] Comment on above: Result Comment: Oxyc odone screening cut off value = 300 ng/mL NOTE: This test is used for the detection of oxycodone and oxymorphone in urine. Performed By: #### D HIGGINS ####[facility] ([id number])[address], [address] [place] [address] PHENCYCLIDINE Negative Normal [facility] Comment on above: Result Comment: Phen cyclidine screening cut off value = 25 ng/mL Performed By: #### D HIGGINS ####[facility] ([id number])[address], [address], [place] [address] Glucose Glucometer (BldC) [M ass/Vol]on 11-25-2023 Glucose [Mass/Vol] 89 mg/dL Normal 65-99 [facility] Glucose [Mass/Vol] 86 mg/dL Normal 65-99 [facility] MAGNESIUMon 11-25-2023 Magnesium [Mass/Vol] 2.1 mg/dL Normal 1.8-2.6 [facility] Comment on above: Performed By: #### 3 968-5, 72792-5 ####[facility] ([id number])[address], [address], [place] [address] Phenytoin [Mass/Vol]on 11-24 DILANTIN 22.1 ug/mL High 10.0-20.0 [facility] Comment on above: Performed By: #### 3 968-5, 76590-6 ####[facility] ([id number])[address], [address], [place] [address] cloBAZam and norclobazam nevarez loraine 11-25-2023 CLOBAZAM 62.2 ng/mL Normal 30-300 [facility] N-desmethylclobazam 232.0 ng/mL Low 300-3000 [facility] Comment on above: Result Comment: NOTE ADDITIONAL INFORMATION This test was developed and its performance characteristics determined by [facility] in a manner consistent with CLIA requirements. This test has not been cleared or approved by the U.S. Food and Drug Administration. Test Performed by: [facility] [address] [place] [address] Early Morning Babysitter: Daryn Hoskins M.D. Ph.D.; CLIA# [id number] lamoTRIgine [Mass/Vol]on Lamotrigine, S 4.5 mcg/mL Normal 3.0-15.0 [facility] Comment on above: Result Comment: NOTE ADDITIONAL INFORMATION This test was developed and its performance characteristics determined by [facility] in a manner consistent with CLIA requirements. This test has not been cleared or approved by the U.S. Food and Drug Administration. Test Performed by: [facility] [address] [place] [address] Early Morning Babysitter: Daryn Hoskins M.D. Ph.D.; CLIA# [id number] Performed By: #### 3 968-5, 01187-0 ####[facility] ([id number])[address] [facility], [address] [place] [address] Office Visiton 11-16-2023 Follow-up visit [id number] Juan Jose Kovacs 2000 F Date Provider Department Center 11/16/2023 SWAPNA LOPEZ CARD [facility] No family history on file Level of Service:66268 LA OFFICE/OUTPATIENT ESTABLISHED MOD MDM 30 MIN Reason for Visit and Comments: Follow-up [618143] Normal [facility] Patient Letteron 10-26-2023 Patient Letter [id number]#1.00OTG TIFF Normal [facility] Glucose Glucometer (dC) [M ass/Vol]on 10-17-2023 Glucose [Mass/Vol] 78 mg/dL Normal 65-99 [facility] HCG ( test) Ql (U)o n 10-17-2023 Beta HCG ( test) Ql (U) Negative Normal NEG [facility] Comment on above: Performed By: #### 2 106-3 #### [facility] ([id number]) [address] [place] [address] BASIC METABOLIC PANLon 10-09 Anion gap [Moles/Vol] 7 mmol/L Normal 5-15 Pro [facility] Comment on above: Performed By: #### B MP #### [facility] ([id number]) [address] [place] [address] Calcium [Mass/Vol] 9.0 mg/dL Normal 8.5-10.5 [facility] Comment on above: Performed By: #### B MP #### [facility] ([id number]) [address] [place] [address] Chloride [Moles/Vol] 106 mmol/L Normal 98-109 [facility] Comment on above: Performed By: #### B MP #### [facility] ([id number]) [address] [place] [address] CO2 [Moles/Vol] 25 mmol/L Normal 22-[address] [facility] Comment on above: Performed By: #### B MP #### [facility] ([id number]) [address] [place] [address] Creatinine [Mass/Vol] 0.81 mg/dL Normal 0.40-1.00 [facility] Comment on above: Result Comment: METH OD TRACEABLE TO IDMS STANDARD Performed By: #### B MP #### [facility] ([id number]) [address] [place] [address] eGFR (CKD-EPI) NON-RACE DEPENDENT >90 Normal >[address] [facility] Comment on above: Result Comment: Reported eGFR is based on the CKD-EPI 2021 equation that does not use a race coefficient. Performed By: #### B MP #### [facility] ([id number]) [address] [place] [address] Glucose [Mass/Vol] 103 mg/dL High 65-99 [facility] Comment on above: Performed By: #### B MP #### [facility] ([id number]) [address] [place] [address] Potassium [Moles/Vol] 3.6 mmol/L Normal 3.5-5.0 [facility] Comment on above: Performed By: #### B MP #### [facility] ([id number]) [address] [place] [address] Sodium [Moles/Vol] 138 mmol/L Normal 134-146 [facility] Comment on above: Performed By: #### B MP #### [facility] ([id number]) [address] [place] [address] Urea nitrogen [Mass/Vol] 12 mg/dL Normal 5-[address] [facility] Comment on above: Performed By: #### B MP #### [facility] ([id number]) [address] [place] [address] URINALYSISon 10-10-2023 Bilirubin Ql (U) Negative Normal NEG [facility] BLOOD/HGB MODERATE Abnormal NEG [facility] CA OXALATE CRYSTALS PRESENT Abnormal NONE [facility] Color (U) YELLOW Normal YELLOW [facility] Glucose Ql (U) Negative Normal NEG [facility] Ketones Ql (U) Negative Normal NEG [facility] Leukocyte esterase Test strip Ql (U) Negative Normal NEG [facility] MUCOUS PRESENT Abnormal NONE [facility] Nitrite Ql (U) Negative Normal NEG [facility] pH (U) 7.0 [pH] Normal 5.0-8.[address] [facility] Protein Ql (U) Trace Abnormal NEG [facility] R.B.CELLS 3 /hpf Normal 0-[address] [facility] Specific gravity (U) [Rel density] 1.024 Normal 1.003-1.[address] [facility] SQUAMOUS EPITHELIUM 8 /hpf High 0-5 [facility] TURBIDITY CLEAR Normal CLEAR [facility] Urobilinogen (U) [Mass/Vol] mg/dL Normal <1.[address] [facility] W.B.CELLS 3 /hpf Normal 0-[address] [facility] URINE CULTUREon 10-10-2023 Bacteria identified Cx Nom (U) CULTURE RESULTS <10,000 ORGANISMS/ML NORMAL URO GENITAL ZANDER Normal [facility] Comment on above: Performed By: #### 6 30-4 #### [facility] ([id number]) [address], [address] [place] [address] Patient Handouton 09-28-2023 Patient Handout [id number]#1.00OTGTI FF Normal [facility] Patient Handouton 09-27-2023 Patient Handout [id number]#1.00OTGTIF F Normal [facility] Patient Handout [id number]#1.00OTGTI FF Normal [facility] THYROID PROFILEon 09-27-2023 Free T4 [Mass/Vol] 1.17 ng/dL Normal 0.61-1.60 [facility] Comment on above: Performed By: #### T HYR ####[facility] ([id number])[address], [address] [place] [address] TSH 0.74 uIU/mL Normal 0.49-4.67 [facility] Comment on above: Performed By: #### T HYR ####[facility] ([id number])[address], [address] [place] [address] US PELVIC COMPLETEon 024 US PELVIC COMPLETE [...] Nation MD on 09/23/2023 5:03 PM Normal [facility] XR LUMBAR SPINE AP, LATERAL, FLEXION AND [...] Strange MD on 09/20/2023 11:39 AM Normal [facility] POCT , urineon 08-26 Beta HCG ( test) Ql (U) Negative [facility] POCT , urineon 08-25 Beta HCG ( test) Ql (U) Negative [facility] Internal [place] Check Completed and Passed Yes [facility] Interpretation and review of laboratory results Normal [facility] US RETROPERITONEAL COMPLETEo n 09-12-2023 US RETROPERITONEAL [...] Strange MD on 09/12/2023 1:24 PM Normal [facility] Reference Lab Test IDon 08-25 UROVYSION FOR BLADDER CANCER SEE COMMENTS 09/14/2023 09:40 AM Normal [facility] Comment on above: Result Comment: NOTE Test [...] specific probe for 9p21 ([employer] [place], [place]). This test has been modified from the steel finisher's instructions. Its performance characteristics were determined by [facility] in a manner consistent with CLIA requirements. This test has not been cleared or approved by the U.S. Food and Drug Administration. Reason for Referral Evaluate for urothelial carcinoma. Specimen Varies Source Urine, NOS Released By Marianne Bray M.D. Test Performed by: [address] [address] Early Morning Babysitter: Daryn Hoskins M.D. Ph.D.; CLIA# [id number] Cytologyon 09-07-2023 Cytology Normal [facility] Comment on above: Result Comment: [facility] [address] [place] [address] Cytology Consultation Patient Name:BHAVNA KOVACS:2000 (Age: 23)Gender:FTaken:09/07/2023eported:09/09/2023 11:03Physician(s):Enriqueta Tse PA-C ([phone])Copy To: Rec. #:[id number]: #[id number] Final Cytologic Diagnosis Urine: Negative for high-grade urothelial cell carcinoma. [facility]/09/09/2023 Interpretation performed at [facility], [address] [place] [address], License number: [id number].Electronically Signed Out By Boom Holguin MD Clinical History Gross hematuria R31.0 Gross Description Received was 60mL of cloudy yellow fluid unfixed labeled as Bethanie, Urine per specimen requisition . 30mL used for Cytology. See [employer] report.Portion submitted for cultures Source of Specimen Urine Non CAMPUS COORDINATOR [employer] Fee Code(s): 1; 17683 POCT Urinalysis Auto Onlyon 09-07-2023 External Poct Urine Blood Trace [facility] External Poct Urine Glucose Negative [facility] External Poct Urine Ketones Negative [facility] External Poct Urine Leukocyte Esterase Negative [facility] External Poct Urine Nitrite Negative [facility] External Poct Urine Ph 7.0 [facility] External Poct Urine Protein Negative [facility] Interpretation and review of laboratory results Abnormal [facility] URINE CULTUREon 09-07-2023 Bacteria identified Cx Nom (U) SPECIMEN NOTES URINE RECEIVED WITHOUT PRESERVATIVE CULTURE RESULTS <10,000 ORGANISMS/ML NORMAL URO GENITAL ZANDER Normal [facility] Comment on above: Performed By: #### 6 30-4 #### [facility] ([id number]) [address] [place] [address], [address] [place] [address] BASIC METABOLIC PANLon 08-25 Anion gap [Moles/Vol] 7 mmol/L Normal 5-15 [facility] Comment on above: Performed By: #### C BCA, BMP #### [facility] ([id number]) [address], [facility] [address] [place] [address] Calcium [Mass/Vol] 8.5 mg/dL Normal 8.5-10.5 [facility] Comment on above: Performed By: #### C BCA, BMP #### [facility] ([id number]) [address] [address] [place] [address] Chloride [Moles/Vol] 107 mmol/L Normal 98-109 [facility] Comment on above: Performed By: #### C BCA, BMP #### [facility] ([id number]) [address], [facility] [address] [place] [address] CO2 [Moles/Vol] 27 mmol/L Normal 22-32 [facility] Comment on above: Performed By: #### C BCA, BMP #### [facility] ([id number]) [address] [address] Creatinine [Mass/Vol] 0.73 mg/dL Normal 0.40-1.00 [facility] Comment on above: Result Comment: METH OD TRACEABLE TO IDMS STANDARD Performed By: #### C BCA, BMP #### [facility] ([id number]) [address] [address] [place] [address] eGFR (CKD-EPI) NON-RACE DEPENDENT >90 Normal >59 [facility] Comment on above: Result Comment: Reported eGFR is based on the CKD-EPI 2020 equation that does not use a race coefficient. Performed By: #### C BCA, BMP #### [facility] ([id number]) [address] [address] [place] [address] Glucose [Mass/Vol] 79 mg/dL Normal 65-99 [facility] Comment on above: Performed By: #### C BCA, BMP #### [facility] ([id number]) [address], [address] [place] [address] Potassium [Moles/Vol] 3.3 mmol/L Low 3.5-5.0 [facility] Comment on above: Performed By: #### C BCA, BMP #### [facility] ([id number]) [address], [address] [place] [address] Sodium [Moles/Vol] 141 mmol/L Normal 134-146 [facility] Comment on above: Performed By: #### C BCA, BMP #### [facility] ([id number]) [address], [address] [place] [address] Urea nitrogen [Mass/Vol] 8 mg/dL Normal 5-23 [facility] Comment on above: Performed By: #### C BCA, BMP #### [facility] ([id number]) [address], [address] [place] [address] CBC AND AUTO DIFFon 08-26-19 24 ABSOLUTE BASOPHIL 0.0 X10E9/L Normal 0.0-0.2 [facility] Comment on above: Performed By: #### C BCA, BMP #### [facility] ([id number]) [address], [address] [place] [address] ABSOLUTE NEUTROPHIL 2.7 X10E9/L Normal 1.5-6.6 [facility] Comment on above: Performed By: #### C BCA, BMP #### [facility] ([id number]) [address], [address] [place] [address] Basophils/100 WBC (Bld) 0.6 % Normal [facility] Comment on above: Performed By: #### C BCA, BMP #### [facility] ([id number]) [address], [address] [place] [address] Eosinophils (Bld) [#/Vol] 0.1 10*3/uL Normal 0.0-0.4 [facility] Comment on above: Performed By: #### C SLAVA, BMP #### [facility] ([id number]) [address], [address] [place] [address] Eosinophils/100 WBC (Bld) 2.3 % Normal [facility] Comment on above: Performed By: #### C SLAVA, BMP #### [facility] ([id number]) [address], [facility] [address] [place] [address] Erythrocyte distribution width (RBC) [Ratio] 13.9 % Normal 11.5-15.0 [facility] Comment on above: Performed By: #### C SLAVA, BMP #### [facility] ([id number]) [address], [address] [place] [address] Hematocrit (Bld) [Volume fraction] 33.1 % Low 35-47 [facility] Comment on above: Performed By: #### C SLAVA, BMP #### [facility] ([id number]) [address], [address] [place] [address] Hemoglobin (Bld) [Mass/Vol] 11.1 g/dL Low 11.7-15.5 [facility] Comment on above: Performed By: #### C SLAVA, BMP #### [facility] ([id number]) [address], [address] [place] [address] Lymphocytes (Bld) [#/Vol] 2.0 10*3/uL Normal 1.0-3.5 [facility] Comment on above: Performed By: #### C SLAVA, BMP #### [facility] ([id number]) [address], [address] [place] [address] Lymphocytes/100 WBC (Bld) 36.7 % Normal [facility] Comment on above: Performed By: #### C SLAVA, BMP #### [facility] ([id number]) [address], [address] [place] [address] MCH (RBC) [Entitic mass] 28.7 pg Normal 27-34 [facility] Comment on above: Performed By: #### C SLAVA, BMP #### [facility] ([id number]) [address], [address] [place] [address] MCHC (RBC) [Mass/Vol] 33.4 g/dL Normal 32-36 [facility] Comment on above: Performed By: #### C SLAVA, BMP #### [facility] ([id number]) [address], [address] [place] [address] MCV (RBC) [Entitic vol] 86 fL Normal 80-100 [facility] Comment on above: Performed By: #### C SLAVA, BMP #### [facility] ([id number]) [address], [address] [place] [address] Monocytes (Bld) [#/Vol] 0.6 10*3/uL Normal 0-0.9 [facility] Comment on above: Performed By: #### C SLAVA, BMP #### [facility] ([id number]) [address], [address] [place] [address] Monocytes/100 WBC (Bld) 10.4 % Normal [facility] Comment on above: Performed By: #### C SLAVA, BMP #### [facility] ([id number]) [address], [address] [place] [address] Neutrophils/100 WBC (Bld) 50.0 % Normal [facility] Comment on above: Performed By: #### C SLAVA, BMP #### [facility] ([id number]) [address], [address] [place] [address] Platelet mean volume (Bld) [Entitic vol] 8.1 fL Normal 7-12 [facility] Comment on above: Performed By: #### C SLAVA, BMP #### [facility] ([id number]) [address], [address] [place] [address] Platelets (Bld) [#/Vol] 184 10*3/uL Normal 150-450 [facility] Comment on above: Performed By: #### C SLAVA, BMP #### [facility] ([id number]) [address], [address] [place] [address] RBC COUNT 3.86 X10E12/L Normal 3.80-5.20 [facility] Comment on above: Performed By: #### C SLAVA, BMP #### [facility] ([id number]) [address], [address] [address] WBC (Bld) [#/Vol] 5.4 10*3/uL Normal 4.0-11.0 [facility] Comment on above: Performed By: #### C SLAVA, BMP #### [facility] ([id number]) [address], [address] [place] [address] Glucose Glucometer ([facility]) [M ass/Vol]on 08-26-2023 Glucose [Mass/Vol] 108 mg/dL High 65-99 [facility] Glucose [Mass/Vol] 80 mg/dL Normal 65-99 [facility] Glucose [Mass/Vol] 83 mg/dL Normal 65-99 [facility] CBC AND AUTO DIFFon 08-25-19 24 ABSOLUTE BASOPHIL 0.0 X10E9/L Normal 0.0-0.2 [facility] Comment on above: Performed By: #### C DANIEL, CBCA, 11054-0, 43545-2 #### [facility] ([id number]) [address] [place] [address], [employer] [place] [address] ABSOLUTE NEUTROPHIL 5.9 X10E9/L Normal 1.5-6.6 [facility] Comment on above: Performed By: #### C DANIEL, CBCA, , #### [facility] ([id number]) [address] [place] [address] Basophils/100 WBC (Bld) 0.4 % Normal [facility] Comment on above: Performed By: #### C MP, CBCA, , #### [facility] ([id number]) [address] [place] [address] Eosinophils (Bld) [#/Vol] 0.0 10*3/uL Normal 0.0-0.4 [facility] Comment on above: Performed By: #### C DANIEL, CBCA, , #### [facility] ([id number]) [address] [place] [address] Eosinophils/100 WBC (Bld) 0.5 % Normal [facility] Comment on above: Performed By: #### C DANIEL, CBCA, , #### [facility] ([id number]) [address] [place] [address] Erythrocyte distribution width (RBC) [Ratio] 14.0 % Normal 11.5-15.0 [facility] Comment on above: Performed By: #### C DANIEL, CBCA, , #### [facility] ([id number]) [address] [place] [address] Hematocrit (Bld) [Volume fraction] 39.6 % Normal 35-47 [facility] Comment on above: Performed By: #### C MP, CBCA, , #### [facility] ([id number]) [address] [place] [address] Hemoglobin (Bld) [Mass/Vol] 13.3 g/dL Normal 11.7-15.5 [facility] Comment on above: Performed By: #### C DANIEL, CBCA, , #### [facility] ([id number]) [address] [place] [address] Lymphocytes (Bld) [#/Vol] 2.1 10*3/uL Normal 1.0-3.5 [facility] Comment on above: Performed By: #### C DANIEL, CBCA, , #### [facility] ([id number]) [address] [place] [address] Lymphocytes/100 WBC (Bld) 23.6 % Normal [facility] Comment on above: Performed By: #### C DANIEL, CBCA, , #### [facility] ([id number]) [address] [place] [address] MCH (RBC) [Entitic mass] 28.6 pg Normal 27-34 [facility] Comment on above: Performed By: #### C DANIEL, CBCA, , #### [facility] ([id number]) [address] [place] [address] MCHC (RBC) [Mass/Vol] 33.6 g/dL Normal 32-36 [facility] Comment on above: Performed By: #### C DANIEL, CBCA, , #### [facility] ([id number]) [address] [place] [address] MCV (RBC) [Entitic vol] 85 fL Normal 80-100 [facility] Comment on above: Performed By: #### C DANIEL, CBCA, , #### [facility] ([id number]) [address] [place] [address] Monocytes (Bld) [#/Vol] 0.8 10*3/uL Normal 0-0.9 [facility] Comment on above: Performed By: #### C MP, CBCA, , #### [facility] ([id number]) [address] [place] [address] Monocytes/100 WBC (Bld) 9.3 % Normal [facility] Comment on above: Performed By: #### C MP, CBCA, , #### [facility] ([id number]) [address] [place] [address] 44949 Neutrophils/100 WBC (Bld) 66.2 % Normal [facility] Comment on above: Performed By: #### C MP, CBCA, , #### [facility] ([id number]) [address] [place] [address] 21499 Platelet mean volume (Bld) [Entitic vol] 7.9 fL Normal 7-12 [facility] Comment on above: Performed By: #### C MP, CBCA, , #### [facility] ([id number]) [address] [place] [address] 06997 Platelets (Bld) [#/Vol] 234 10*3/uL Normal 150-450 [facility] Comment on above: Performed By: #### C MP, CBCA, , #### [facility] ([id number]) [address] [place] [address] 66007 RBC COUNT 4.65 X10E12/L Normal 3.80-5.20 [facility] Comment on above: Performed By: #### C MP, CBCA, , #### [facility] ([id number]) [address] [place] [address] 45323 WBC (Bld) [#/Vol] 8.9 10*3/uL Normal 4.0-11.0 [facility] Comment on above: Performed By: #### C DANIEL, CBCA, 45617-2, #### [facility] ([id number]) [address] [place] [address] 42564 COMPREHENSIVE METABOLIC PANE Basim 08-25-2023 Albumin [Mass/Vol] 4.7 g/dL Normal 3.2-5.3 [facility] Comment on above: Performed By: #### C DANIEL, CBCA, 82001-8, #### [facility] ([id number]) [address] [place] [address] 77231 ALP [Catalytic activity/Vol] 57 U/L Normal 39-130 [facility] Comment on above: Performed By: #### C DANIEL CBCA, , #### [facility] ([id number]) [address] [place] [address] 84019 ALT [Catalytic activity/Vol] 11 U/L Normal 0-31 [facility] Comment on above: Performed By: #### C DANIEL, CBCA, , #### [facility] ([id number]) [address] [place] [address] 31754 Anion gap [Moles/Vol] 12 mmol/L Normal 5-15 [facility] Comment on above: Performed By: #### C DANIEL, CBCA, , #### [facility] ([id number]) [address] [place] [address] 29762 AST [Catalytic activity/Vol] 34 U/L Normal 0-41 [facility] Comment on above: Performed By: #### C DANIEL, CBCA, , #### [facility] ([id number]) [address] [place] [address] 60621 Bilirubin [Mass/Vol] 0.9 mg/dL Normal 0.3-1.2 [facility] Comment on above: Performed By: #### C DANIEL, LUIS ALFREDOA, 44696-0, #### [facility] ([id number]) [address] [place] [address] 91548 Calcium [Mass/Vol] 9.0 mg/dL Normal 8.5-10.5 [facility] Comment on above: Performed By: #### C DANIEL, CBCA, 15469-5, #### [facility] ([id number]) [address] [place] [address] 69919 Chloride [Moles/Vol] 101 mmol/L Normal 98-109 [facility] Comment on above: Performed By: #### C JAILYN SANCHEZ, , #### [facility] ([id number]) [address] [place] [address] 80389 CO2 [Moles/Vol] 24 mmol/L Normal 22-32 [facility] Comment on above: Performed By: #### C DANIEL, LUIS ALFREDOA, , #### [facility] ([id number]) [address] [place] [address] 54437 Creatinine [Mass/Vol] 0.93 mg/dL Normal 0.40-1.00 [facility] Comment on above: Result Comment: METH OD TRACEABLE TO IDMS STANDARD Performed By: #### C JAILYN SANCHEZ, , 88287-0 #### [facility] ([id number]) [address] [place] [address] 60464 GFR/1.73 sq M.predicted among non-blacks MDRD (S/P/Bld) [Vol rate/Area] 89 mL/min/{1.73_m2} Normal >59 [facility] Comment on above: Result Comment: Reported eGFR is based on the CKD-EPI 2020 equation that does not use a race coefficient. Performed By: #### C JAILYN SANCHEZ, 00477-8, #### [facility] ([id number]) [address] [place] [address] 37064 Glucose [Mass/Vol] 102 mg/dL High 65-99 [facility] Comment on above: Performed By: #### C JAILYN SANCHEZ, , #### [facility] ([id number]) [address] [place] [address] 07594 Potassium [Moles/Vol] 3.1 mmol/L Low 3.5-5.0 [facility] Comment on above: Performed By: #### C JAILYN SANCHEZ, , #### [facility] ([id number]) [address] [place] [address] 46278 Protein [Mass/Vol] 7.8 g/dL Normal 6.0-8.0 [facility] Comment on above: Performed By: #### C JAILYN SANCHEZ, , #### [facility] ([id number]) [address] [place] [address] 42892 Sodium [Moles/Vol] 137 mmol/L Normal 134-146 [facility] Comment on above: Performed By: #### C JAILYN SANCHEZ, , #### [facility] ([id number]) [address] [place] [address] 74595 Urea nitrogen [Mass/Vol] 9 mg/dL Normal 5-23 [facility] Comment on above: Performed By: #### C JAILYN SANCHEZ, , #### [facility] ([id number]) [address] [place] [address] BRAIN WO CONTon 4 CT BRAIN WO CONT CT BRAIN WO [...] Marie Tanner on 08/25/2023 3:46 PM Normal [facility] CT CERVICAL SPINE WO CONTon 08-25-2023 CT [...] Mckeon DO on 08/25/2023 5:02 PM Normal [facility] Lactate (P miguelina) [Moles/Vol]o n 08-25-2023 LACTATE W/REFLEX 1.5 mmol/L Normal 0.4-2.0 [facility] Comment on above: Result Comment: Result did not trigger repeat Lactate, re-order if needed. Performed By: #### C MP, CBCA, 37974-3, 05496-9 #### [facility] ([id number]) [address] [facility], [place] [address] MAGNESIUMon 08-25-2023 Magnesium [Mass/Vol] 2.2 mg/dL Normal 1.8-2.6 [facility] Comment on above: Performed By: #### C MP, CBCA, 06546-3, 41158-0 #### [facility] ([id number]) [address] [facility], [place] [address] XR ELBOW RT MIN 3 VWSon 07-29 [...] Marie Tanner on 08/25/2023 3:50 PM [facility] Electrophysiology Consult Note Reason for visit: event [...] to male transgender [facility]- Maternal grandmother early [place]- 30's, Maternal grandfather- early [place] in 40's Allergies-none Home meds-Effexor and testosterone injections Per Dr. Harding 09/23/20 HPI: 20-year-old patient with a history of seizure disorder was recently seen by Ms. Bruce for complaints of palpitations. He states that he has felt them quite often and was significantly bothered by it on August 10 that he went to [facility]. EKG that performed shows evidence of sinus [...] history Family medical history-paternal grandfather of an [place] at 46 years of age, paternal uncle [...] aches, no (more content not included)... Normal [facility] NURSNOTEon 08-03-2023 NURSNOTE RN educated pt on d/ c instructions. RN encouraged pt to voice any questions or concerns. Pt verbalizes no questions or concerns at this time. Pt was wheeled off of unit with all of belongings. Normal [facility] CBC AND AUTO DIFFon 07-28-19 24 ABSOLUTE BASOPHIL 0.0 X10E9/L Normal 0.0-0.2 [facility] Comment on above: Performed By: #### C MP, CBCA #### [facility] ([id number]) [address] [place] [address] 22676 ABSOLUTE NEUTROPHIL 3.2 X10E9/L Normal 1.5-6.6 [facility] Comment on above: Performed By: #### C MP, CBCA #### [facility] ([id number]) [address] [place] [address] 80333 Basophils/100 WBC (Bld) 0.7 % Normal [facility] Comment on above: Performed By: #### C MP, CBCA #### [facility] ([id number]) [address] [place] [address] 87732 Eosinophils (Bld) [#/Vol] 0.1 10*3/uL Normal 0.0-0.4 [facility] Comment on above: Performed By: #### C MP, CBCA #### [facility] ([id number]) [address] [place] [address] 44750 Eosinophils/100 WBC (Bld) 0.8 % Normal [facility] Comment on above: Performed By: #### C MP, CBCA #### [facility] ([id number]) [address] [place] [address] 46528 Erythrocyte distribution width (RBC) [Ratio] 14.3 % Normal 11.5-15.0 [facility] Comment on above: Performed By: #### C MP, CBCA #### [facility] ([id number]) [address] [place] [address] 51704 Hematocrit (Bld) [Volume fraction] 39.8 % Normal 35-47 [facility] Comment on above: Performed By: #### C MP, CBCA #### [facility] ([id number]) [address] [place] [address] 31510 Hemoglobin (Bld) [Mass/Vol] 13.4 g/dL Normal 11.7-15.5 [facility] Comment on above: Performed By: #### C MP, CBCA #### [facility] ([id number]) [address] [place] [address] 82387 Lymphocytes (Bld) [#/Vol] 3.1 10*3/uL Normal 1.0-3.5 [facility] Comment on above: Performed By: #### C MP, CBCA #### [facility] ([id number]) [address] [place] [address] 02216 Lymphocytes/100 WBC (Bld) 44.5 % Normal [facility] Comment on above: Performed By: #### C MP, CBCA #### [facility] ([id number]) [address] [place] [address] 27789 MCH (RBC) [Entitic mass] 28.3 pg Normal 27-34 [facility] Comment on above: Performed By: #### C MP, CBCA #### [facility] ([id number]) [address] [place] [address] 18430 MCHC (RBC) [Mass/Vol] 33.8 g/dL Normal 32-36 [facility] Comment on above: Performed By: #### C MP, CBCA #### [facility] ([id number]) [address] [place] [address] 07750 MCV (RBC) [Entitic vol] 84 fL Normal 80-100 [facility] Comment on above: Performed By: #### C MP, CBCA #### [facility] ([id number]) [address] [place] [address] 09386 Monocytes (Bld) [#/Vol] 0.6 10*3/uL Normal 0-0.9 [facility] Comment on above: Performed By: #### C MP, CBCA #### [facility] ([id number]) [address] [place] [address] 78345 Monocytes/100 WBC (Bld) 8.1 % Normal [facility] Comment on above: Performed By: #### C MP, CBCA #### [facility] ([id number]) [address] [place] [address] 53408 Neutrophils/100 WBC (Bld) 45.9 % Normal [facility] Comment on above: Performed By: #### C MP, CBCA #### [facility] ([id number]) [address] [place] [address] 28928 Platelet mean volume (Bld) [Entitic vol] 8.0 fL Normal 7-12 [facility] Comment on above: Performed By: #### C MP, CBCA #### [facility] ([id number]) [address] [place] [address] 67719 Platelets (Bld) [#/Vol] 270 10*3/uL Normal 150-450 [facility] Comment on above: Performed By: #### C MP, CBCA #### [facility] ([id number]) [address] [place] [address] 50129 RBC COUNT 4.75 X10E12/L Normal 3.80-5.20 [facility] Comment on above: Performed By: #### C MP, CBCA #### [facility] ([id number]) [address] [place] [address] 22074 WBC (Bld) [#/Vol] 7.0 10*3/uL Normal 4.0-11.0 [facility] Comment on above: Performed By: #### C MP, CBCA #### [facility] ([id number]) [address] [place] [address] 07481 COMPREHENSIVE METABOLIC PANE Basim 07-28-2023 Albumin [Mass/Vol] 4.8 g/dL Normal 3.2-5.3 [facility] Comment on above: Performed By: #### C MP, CBCA #### [facility] ([id number]) [address] [place] [address] 80561 ALP [Catalytic activity/Vol] 55 U/L Normal 39-130 [facility] Comment on above: Performed By: #### C DANIEL, CBCA #### [facility] ([id number]) [address] [place] [address] 54498 ALT [Catalytic activity/Vol] 10 U/L Normal 0-31 [facility] Comment on above: Performed By: #### C DANIEL, CBCA #### [facility] ([id number]) [address] [place] [address] 27490 Anion gap [Moles/Vol] 7 mmol/L Normal 5-15 [facility] Comment on above: Performed By: #### C DANIEL CBCA #### [facility] ([id number]) [address] [place] [address] 11307 AST [Catalytic activity/Vol] 18 U/L Normal 0-41 [facility] Comment on above: Performed By: #### C DANIEL CBCA #### [facility] ([id number]) [address] [place] [address] 98412 Bilirubin [Mass/Vol] 0.3 mg/dL Normal 0.3-1.2 [facility] Comment on above: Performed By: #### C DANIEL CBCA #### [facility] ([id number]) [address] [place] [address] 15028 Calcium [Mass/Vol] 9.3 mg/dL Normal 8.5-10.5 [facility] Comment on above: Performed By: #### C DANIEL, CBCA #### [facility] ([id number]) [address] [place] [address] 61300 Chloride [Moles/Vol] 102 mmol/L Normal 98-109 [facility] Comment on above: Performed By: #### C DANIEL CBCA #### [facility] ([id number]) [address] [place] [address] 12415 CO2 [Moles/Vol] 29 mmol/L Normal 22-32 [facility] Comment on above: Performed By: #### C DANIEL, CBCA #### [facility] ([id number]) [address] [place] [address] 24367 Creatinine [Mass/Vol] 0.73 mg/dL Normal 0.40-1.00 [facility] Comment on above: Result Comment: METH OD TRACEABLE TO IDMS STANDARD Performed By: #### C JAILYN SANCHEZ #### [facility] ([id number]) [address] [place] [address] 63743 eGFR (CKD-EPI) NON-RACE DEPENDENT >90 Normal >59 [facility] Comment on above: Result Comment: Reported eGFR is based on the CKD-EPI 2020 equation that does not use a race coefficient. Performed By: #### C DANIEL CBCA #### [facility] ([id number]) [address] [place] [address] 65691 Glucose [Mass/Vol] 91 mg/dL Normal 65-99 [facility] Comment on above: Performed By: #### C DANIEL CBCA #### [facility] ([id number]) [address] [place] [address] 89122 Potassium [Moles/Vol] 3.7 mmol/L Normal 3.5-5.0 [facility] Comment on above: Performed By: #### C DANIEL CBCA #### [facility] ([id number]) [address] [place] [address] 90044 Protein [Mass/Vol] 8.2 g/dL High 6.0-8.0 [facility] Comment on above: Performed By: #### C DANIEL, CBCA #### [facility] ([id number]) [address] [place] [address] Sodium [Moles/Vol] 138 mmol/L Normal 134-146 [facility] Comment on above: Performed By: #### C DANIEL, CBCA #### [facility] ([id number]) [address] [place] [address] 32256 Urea nitrogen [Mass/Vol] 9 mg/dL Normal 5-23 [facility] Comment on above: Performed By: #### C DANIEL, CBCA #### [facility] ([id number]) [address] [place] [address] [place] [address] URN MACROSCOPIC NURon 2023 BILIRUBIN MARISA Negative Normal NEG [facility] Comment on above: Performed By: #### N UM #### [facility] ([id number]) [address] [place] [address] [place] [address] BLOOD/HGB MARISA Negative Normal NEG [facility] Comment on above: Performed By: #### N UM #### [facility] ([id number]) [address] [place] [address] [place] [address] GLUCOSE MARISA Negative Normal NEG [facility] Comment on above: Performed By: #### N UM #### [facility] ([id number]) [address] [place] [address] [place] [address] KETONES MARISA Negative Normal NEG [facility] Comment on above: Performed By: #### N UM #### [facility] ([id number]) [address] [place] [address] [place] [address] LEUKOCYTE ESTERASE MARISA Negative Normal NEG [facility] Comment on above: Performed By: #### N UM #### [facility] ([id number]) [address] [place] [address] [place] [address] NITRITE MARISA Negative Normal NEG [facility] Comment on above: Performed By: #### N UM #### [facility] ([id number]) [address] [place] [address] PH MARISA 7.0 Normal 5.0-8.5 [facility] Comment on above: Performed By: #### N UM #### [facility] ([id number]) [address] [place] [address] PROTEIN MARISA Negative Normal NEG [facility] Comment on above: Performed By: #### N UM #### [facility] ([id number]) [address] [place] [address] 33860 SPECIFIC GRAVITY MARISA 1.015 Normal 1.003-1.035 [facility] Comment on above: Performed By: #### N UM #### [facility] ([id number]) [address] [place] [address] 65926 UROBILINOGEN MARISA 0.2 eu/dL Normal <1.1 [facility] Comment on above: Performed By: #### N UM #### [facility] ([id number]) [address] [place] [address] 63839 US RETROPERITONEAL COMPLETEo n 07-26-2023 US RETROPERITONEAL [...] Roberto Phillips MD on 07/26/2023 1:33 PM IFrancisco have personally reviewed the image(s) and agree with and/or edited the report Finalized by Francisco Mojica on 07/26/2023 2:11 PM Normal [facility] URINALYSISon 07-22-2023 Bilirubin Ql (U) Negative Normal NEG [facility] BLOOD/HGB Small Abnormal NEG [facility] CA OXALATE CRYSTALS PRESENT Abnormal NONE [facility] Color (U) YELLOW Normal YELLOW [facility] Glucose Ql (U) Negative Normal NEG [facility] Ketones Ql (U) Negative Normal NEG [facility] Leukocyte esterase Test strip Ql (U) Negative Normal NEG [facility] MUCOUS PRESENT Abnormal NONE [facility] Nitrite Ql (U) Negative Normal NEG [facility] pH (U) 7.0 [pH] Normal 5.0-8.5 [facility] Protein Ql (U) Trace Abnormal NEG [facility] R.B.CELLS 13 /hpf High 0-5 [facility] Specific gravity (U) [Rel density] 1.018 Normal 1.003-1.035 [facility] SQUAMOUS EPITHELIUM 2 /hpf Normal 0-5 [facility] TURBIDITY CLEAR Normal CLEAR [facility] Urobilinogen (U) [Mass/Vol] mg/dL Normal <1.1 [facility] W.B.CELLS 3 /hpf Normal 0-5 [facility] XR ABDOMEN AP 1 VWon 2 024 XR ABDOMEN AP 1 VW XR [...] Rodney DO on 07/09/2023 12:02 PM Normal [facility] Office Visiton 06-17-2023 Follow-up visit [id number] KovacsJuan Jose marcia Goodrich 2000 F Date Provider Department Center 06/17/2023 Klarissa6-LUIS FERNANDO GUERRIER C[facility] No family history on file Level of Service:64797 [place] OFFICE/OUTPATIENT ESTABLISHED MOD MDM 30 MIN Normal [facility] Alanine aminotransferase [En zymatic activity/volume] in Serum or PlasmaOrdered By: Luz Fiore on 05-12-2023 ALT [Catalytic activity/Vol] 8 U/L Normal 7-52 [facility] Comment on above: Performed By: #### C MP, CBC #### [facility] [address] [place] [address] [place] Albumin [Mass/volume] in Ser um or Plasma by Bromocresol green (BCG) dye binding methoOrdered By: Luz Fiore on 05-12-2023 Albumin BCG dye [Mass/Vol] 4.6 g/dL 3.5-5.7 [facility] Alkaline phosphatase [Enzyma tic activity/volume] in Serum or PlasmaOrdered By: Luz Fiore on 05-12-2023 ALP [Catalytic activity/Vol] 56 U/L Normal 34-104 [facility] Comment on above: Performed By: #### C MP, CBC #### [facility] [address] [place] [address] [place] Aspartate aminotransferase [ Enzymatic activity/volume] in Serum or PlasmaOrdered By: Luz Fiore on 05-12-2023 AST [Catalytic activity/Vol] 14 U/L Normal 13-39 [facility] Comment on above: Result Comment: PERF ORMED BY: [place] [address] PATHOLOGIST [employer]PECTING OBSERVER HELPER JOSE LUZ M.D. Performed By: #### R EDRAW AST, REDRAW K ####[facility] [address] Automated basophil %Ordered By: Luz Fiore on 05-12-2023 Basophils/100 WBC (Bld) 0.5 % Normal . [facility] Comment on above: Performed By: #### C MP, CBC #### [address] Automated basophil countOrde red By: Luz Firoe on 05-12-2023 Basophils (Bld) [#/Vol] 0.0 10*3/uL Normal 0.0-0.2 [facility] Comment on above: Result Comment: PERF ORMED BY: [place] [address] PATHOLOGIST GRAVITY PROSPECTING OBSERVER HELPER JOSE LUZ M.D. Performed By: #### C MP, CBC #### [address] Automated blood monocyte cou ntOrdered By: Luz Fiore on 05-12-2023 Monocytes (Bld) [#/Vol] 0.5 10*3/uL Normal 0.0-0.8 [facility] Comment on above: Performed By: #### C MP, CBC #### [address] Automated eosinophil %Ordere d By: Luz Fiore on 05-12-2023 Eosinophils/100 WBC (Bld) 0.5 % Normal . [facility] Comment on above: Performed By: #### C MP, CBC #### [address] Automated eosinophil countOr dered By: Luz Fiore on 05-12-2023 Eosinophils (Bld) [#/Vol] 0.0 10*3/uL Normal 0.0-0.45 [facility] Comment on above: Performed By: #### C MP, CBC #### [address] Automated erythrocytes count in urine sediment (number/area)Ordered By: Luz Fiore on 05-12-2023 RBC Auto (Urine sed) [#/Area] 5-9 [HPF] 0-4 [facility] Automated leukocytes count i n urine sediment (number/area)Ordered By: Luzjennifer Fiore on 05-12-2023 WBC Auto (Urine sed) [#/Area] 5-9 [HPF] 0-4 [facility] Automated monocyte %Ordered By: Luzjennifer Fiore on 05-12-2023 Monocytes/100 WBC (Bld) 5.1 % Normal . [facility] Comment on above: Performed By: #### C MP, CBC #### [facility] [address] Automated neutrophil %Ordere d By: Luz Fiore on 05-12-2023 Neutrophils/100 WBC (Bld) 58.9 % Normal . [facility] Comment on above: Performed By: #### C MP, CBC #### [address] Automated urine color determ inationOrdered By: Luz Fiore on 05-12-2023 Color (U) Yellow Normal Yellow [facility] Comment on above: Order Comment: Name Collection Type:: Clean-Voided Midstream Performed By: #### A DDONUAPLUS, C ####[facility] [place] [address] Bilirubin Test strip Ql (U)O rdered By: Luz Fiore on 05-12-2023 Bilirubin Ql (U) Negative Negative [facility] Bilirubin.total [Mass/volume ] in Serum or PlasmaOrdered By: Luz Fiore on 05-12-2023 Bilirubin [Mass/Vol] 0.4 mg/dL Normal 0.3-1.0 [facility] Comment on above: Performed By: #### C MP, CBC #### [address] abdomen pelvis wo conon 1 07-12-2022 CT abdomen pelvis wo con [facility] [address] [place] [address] [place] [address] CT Scan Report Signed Patient: Bhavna Kovacs MR#: [id number] 668 : 2000 Acct:[id number] Age/Sex: 22 / F ADM Date: 05/12/23 [...] So Jr., D.O.05/12/2023 2:53 PM Dictation Location: [place] [address] Transcribed By: [facility] 05/12/23 1453 Dictated By: Aman So Jr, DO 05/12/23 1447 Signed By: 05/12/23 1453 Normal [facility] Calcium [Mass/volume] in Ser um or PlasmaOrdered By: Luz Fiore on 05-12-2023 Calcium [Mass/Vol] 9.4 mg/dL Normal 8.6-10.3 [facility] Comment on above: Performed By: #### C MP, CBC #### [address] Carbon dioxide, total [Moles /volume] in Serum or PlasmaOrdered By: Luz Fiore on 05-12-2023 CO2 [Moles/Vol] 28.5 mmol/L Normal 21.0-31.0 [facility] Comment on above: Performed By: #### C MP, CBC #### [address] Chloride [Moles/volume] in S alexis or PlasmaOrdered By: Luz Fiore on 05-12-2023 Chloride [Moles/Vol] 105 mmol/L Normal 98-107 [facility] Comment on above: Performed By: #### C MP, CBC #### [address] Complete Blood Count Auto Di ffon 05-12-2023 Mean Corpuscular HGB Conc 33.7 g/dL Normal 32.0-35.0 [facility] Comment on above: Performed By: #### C MP, CBC #### [address] Monocytes/100 WBC (Bld) 19.05 % Normal 0.00-20.00 [facility] Comment on above: Performed By: #### C MP, CBC #### [address] NRBC% 0.1 /100{WBC} Normal 0-0.5 [facility] Comment on above: Performed By: #### C MP, CBC #### [address] Comprehensive Metabolic Pane basim 05-12-2023 Albumin [Mass/Vol] 4.6 g/dL Normal 3.5-5.7 [facility] Comment on above: Performed By: #### C MP, CBC #### [address] Anion gap [Moles/Vol] Not performed Normal 6.0-15.0 [facility] Comment on above: Performed By: #### C MP, CBC #### [address] Aspartate Amino Transferase Normal 13-39 [facility] Comment on above: Result Comment: Spec imen hemolyzed, redraw requested Results called at 1459 on 05/12/23 Performed By: #### C MP, CBC #### [facility] [address] Creatinine Clr Calc Pharmacy 79.00 Normal [facility] Comment on above: Result Comment: PERF ORMED BY: [place] [address] PATHOLOGIST GRAVITY PROSPECTING OBSERVER HELPER JOSE LUZ M.D. Performed By: #### C MP, CBC #### [facility] [address] [place] [address] [place] GFR/1.73 sq M.predicted MDRD (S/P/Bld) [Vol rate/Area] mL/min/{1.73_m2} Normal [facility] Comment on above: Performed By: #### C MP, CBC #### [facility] [address] Potassium Normal 3.5-5.1 [facility] Comment on above: Result Comment: Spec imen hemolyzed, redraw requested Results called at 1459 on 05/12/23 Performed By: #### C MP, CBC #### [place] [address] [place] Creatinine [Mass/volume] in Serum or PlasmaOrdered By: Luz Fiore on 05-12-2023 Creatinine [Mass/Vol] 0.85 mg/dL Normal 0.60-1.20 [facility] Comment on above: Performed By: #### C MP, CBC #### [facility] [address] [place] [address] [place] Dipstick and Microscopicon 1 07-12-2022 Appearance (U) Cloudy Critically abnormal Clear [facility] Comment on above: Order Comment: Name Collection Type:: Clean-Voided Midstream Performed By: #### A DDONUAPLUS, UHCG ####[facility] [address] [place] [address] [place] Bacteria,Urine 1+ High None Seen [facility] Comment on above: Order Comment: Name Collection Type:: Clean-Voided Midstream Performed By: #### A DDONUAPLUS, UHCG ####[facility] [place] [address] [place] Bilirubin,Urine Negative Normal Negative [facility] Comment on above: Order Comment: Name Collection Type:: Clean-Voided Midstream Performed By: #### A DDONUAPLUS, UHCG ####[address] [address] [place] [address] [place] Glucose Ql (U) Normal Normal Normal [facility] Comment on above: Order Comment: Name Collection Type:: Clean-Voided Midstream Performed By: #### A DDONUAPLUS, UHCG ####[address] [address] [place] Hyaline Casts,Urine 0-8 Normal 0-8 [facility] Comment on above: Order Comment: Name Collection Type:: Clean-Voided Midstream Performed By: #### A DDONUAPLUS, UHCG ####[address] [address] [facility] [place] [address] [place] Ketones Ql (U) Trace High Negative [facility] Comment on above: Order Comment: Name Collection Type:: Clean-Voided Midstream Performed By: #### A DDONUAPLUS, UHCG ####[facility] [place] [address] [place] Leukocyte esterase Test strip Ql (U) Negative Normal Negative [facility] Comment on above: Order Comment: Name Collection Type:: Clean-Voided Midstream Performed By: #### A DDONUAPLUS, UHCG ####[address] [place] [address] [place] Nitrite,Urine Negative Normal Negative [facility] Comment on above: Order Comment: Name Collection Type:: Clean-Voided Midstream Performed By: #### A DDONUAPLUS, UHCG ####[facility] [place] [address] [place] Occult Blood,Urine Trace High Negative [facility] Comment on above: Order Comment: Name Collection Type:: Clean-Voided Midstream Performed By: #### A DDONUAPLUS, UHCG ####[address] [place] [address] [place] Protein,Urine Negative Normal Negative [facility] Comment on above: Order Comment: Name Collection Type:: Clean-Voided Midstream Performed By: #### A DDONUAPLUS, UHCG ####[address] [place] [address] [place] RBC,Urine 5-9 High 0-4 [facility] Comment on above: Order Comment: Name Collection Type:: Clean-Voided Midstream Performed By: #### A DDONUAPLUS, UHCG ####[address] [address] [facility] Specificy [place],Urine 1.022 Normal 1.001-1.030 [facility] Comment on above: Order Comment: Name Collection Type:: Clean-Voided Midstream Performed By: #### A DDONUAPLUS, UHCG ####[address] [place] [address] [place] Squamous Epithelial Cell,Urine 5-9 High 0-2 [facility] Comment on above: Order Comment: Name Collection Type:: Clean-Voided Midstream Performed By: #### A DDONUAPLUS, UHCG ####[address] [place] [address] [place] Urobilinogen,Urine Normal Normal Normal [facility] Comment on above: Order Comment: Name Collection Type:: Clean-Voided Midstream Performed By: #### A DDONUAPLUS, UHCG ####[address] [place] [address] [place] WBC,Urine 5-9 High 0-4 [facility] Comment on above: Order Comment: Name Collection Type:: Clean-Voided Midstream Performed By: #### A DDONUAPLUS, UHCG ####[address] [place] [address] [facility] ECG 12 lead ECGon 05-12-2023 ECG 12 lead ECG [facility] Main [place] [address] [place] [address] Electrocardiograph Report Signed Patient: Bhavna Kovacs MR#: [id number] 668 : 2000 Acct:[id number] Age/Sex: 22 / F ADM Date: 05/12/23 [...] was found Confirmed by LUZ FIORE DO ([id number]) on 05/12/2023 2:57:31 PM Referred By: Electronically Signed By:LUZ FIORE DO Transcribed By: MUS Signed By Luz Fiore DO 05/12 1457 Normal [facility] Erythrocyte distribution wid th [Ratio] by Automated countOrdered By: Luz Fiore on 05-12-2023 Erythrocyte distribution width (RBC) [Ratio] 14.2 % Normal 11.9-15.3 [facility] Comment on above: Performed By: #### C MP, CBC #### [facility] [address] [place] [address] [place] Erythrocytes [#/volume] in B lood by Automated countOrdered By: Luz Fiore on 05-12-2023 RBC (Bld) [#/Vol] 4.51 10*6/uL Normal 3.60-5.00 [facility] Comment on above: Performed By: #### C MP, CBC #### [facility] [address] [place] [id number] [place] Glucose [Mass/volume] in Ser um or PlasmaOrdered By: Luz Fiore on 05-12-2023 Glucose [Mass/Vol] 95 mg/dL Normal 70-100 [facility] Comment on above: ADA recommended refe rence rangeRandom Glucose Reference Range is dependent on time and content of last meal. Glucose of more than 200 mg/dL in a nonstressed, ambulatory subject supports the diagnosis of Diabetes Mellitus. Result Comment: [place] om Glucose Reference Range is dependent on time and content of last meal. Glucose of more than 200 mg/dL in a nonstressed, ambulatory subject supports the diagnosis of Diabetes Mellitus. ADA recommended reference range Performed By: #### C MP, CBC #### [address] HCG ( test) IA.rapi d Ql (U)Ordered By: Luz Fiore on 05-12-2023 HCG ( test) Ql (U) Negative [facility] HCG,Urineon 05-12-2023 Beta HCG ( test) Ql (U) Negative Normal [facility] Comment on above: Order Comment: Name Collection Type:: Clean-Voided Midstream Result Comment: PERF ORMED BY: [place] [address] PATHOLOGIST GRAVITY PROSPECTING OBSERVER HELPER JOSE LUZ M.D. Performed By: #### A DDONUAGRANT, [facility] ####[address] Hematocrit [Volume Fraction] of Blood by Automated countOrdered By: Luz Fiore on 05-12-2023 Hematocrit (Bld) [Volume fraction] 38.0 % Normal 34.0-46.4 [facility] Comment on above: Performed By: #### C MP, CBC #### [address] Hemoglobin [Mass/volume] in BloodOrdered By: Luz Fiore on 05-12-2023 Hemoglobin (Bld) [Mass/Vol] 12.8 g/dL Normal 11.8-15.4 [facility] Comment on above: Performed By: #### C MP, CBC #### [address] Ketones Auto test strip (U) [Mass/Vol]Ordered By: Luz Fiore on 05-12-2023 Ketones (U) [Mass/Vol] Trace Negative [facility] - UrinalysisOrder ed By: Luz Fiore on 05-12-2023 Hyaline casts LM Ql (Urine sed) 0-8 [LPF] 0-8 [facility] Leukocytes [#/volume] correc manjula for nucleated erythrocytes in Blood by Automated counOrdered By: Luz Fiore on 05-12-2023 WBC corrected for nucl RBC Auto (Bld) [#/Vol] 9.1 10*3/uL 3.8-11.6 [facility] Leukocytes [#/volume] in Blo od by Automated countOrdered By: Luz Fiore on 05-12-2023 WBC (Bld) [#/Vol] 9.1 10*3/uL Normal 3.8-11.6 [facility] Comment on above: Performed By: #### C MP, CBC #### [facility] [address] [place] [address] [place] Lymphocytes [#/volume] in Bl ood by Automated countOrdered By: Luz Fiore on 05-12-2023 Lymphocytes (Bld) [#/Vol] 3.2 10*3/uL Normal 1.00-4.8 [facility] Comment on above: Performed By: #### C MP, CBC #### [facility] [address] [place] [address] [place] Lymphocytes/100 leukocytes i n Blood by Automated countOrdered By: Luz Fiore on 05-12-2023 Lymphocytes/100 WBC (Bld) 35.0 % Normal . [facility] Comment on above: Performed By: #### C MP, CBC #### [facility] [address] [place] [address] [place] MCH [Entitic mass] by Automa manjula countOrdered By: Luz Fiore on 05-12-2023 MCH (RBC) [Entitic mass] 28.4 pg Normal 24.7-34.3 [facility] Comment on above: Performed By: #### C MP, CBC #### [facility] [address] [place] [address] [place] MCHC Auto (RBC) [Mass/Vol]Or dered By: Luz Fiore on 05-12-2023 MCHC (RBC) [Mass/Vol] 33.7 g/dL 32.0-35.0 [facility] MCV [Entitic volume] by Auto mated countOrdered By: Luz Fiore on 05-12-2023 MCV (RBC) [Entitic vol] 84.2 fL Normal 80-100 [facility] Comment on above: Performed By: #### C MP, CBC #### [facility] [address] [place] [address] Monocyte distribution width [Entitic volume] in Blood by AutomatedOrdered By: Luz Fiore on 05-12-2023 Monocyte distribution width Auto (Bld) [Entitic vol] 19.05 % 0.00-20.00 [facility] Neutrophils [#/volume] in Bl ood by Automated countOrdered By: Luz Fiore on 05-12-2023 Neutrophils (Bld) [#/Vol] 5.4 10*3/uL Normal 1.8-7.7 [facility] Comment on above: Performed By: #### C MP, CBC #### [facility] [address] [place] [address] Nitrite Test strip Ql (U)Ord ered By: Luz Fiore on 05-12-2023 Nitrite Ql (U) Negative Negative [facility] No Panel InformationOrdered By: Luz Fiore on 05-12-2023 Estimated GFR (CKD-EPI) > 60.0 mL/Min [facility] Creatinine Clearance (Chem 79.00 [facility] Nucleated erythrocytes [Pres ence] in Blood by Automated countOrdered By: Luz Fiore on 05-12-2023 Nucleated RBC Auto Ql (Bld) 0.1 /100{WBC} 0-0.5 [facility] Platelet mean volume [Entiti c volume] in Blood by Automated countOrdered By: Luz Fiore on 05-12-2023 Platelet mean volume (Bld) [Entitic vol] 7.6 fL Normal 6.3-10.7 [facility] Comment on above: Performed By: #### C MP, CBC #### [facility] [address] [place] [address] [place] Platelets [#/volume] in Bloo d by Automated countOrdered By: Luz Fiore on 05-12-2023 Platelets (Bld) [#/Vol] 280 10*3/uL Normal 150-450 [facility] Comment on above: Performed By: #### C MP, CBC #### [facility] [address] Potassium [Moles/volume] in Serum or PlasmaOrdered By: Luz Fiore on 05-12-2023 Potassium [Moles/Vol] 4.0 mmol/L Normal 3.5-5.1 [facility] Comment on above: Performed By: #### R EDRAW AST, REDRAW K ####[facility] [address] Protein Auto test strip (U) [Mass/Vol]Ordered By: Luz Fiore on 05-12-2023 Protein (U) [Mass/Vol] Negative Negative [facility] Protein [Mass/volume] in Ser um or PlasmaOrdered By: Luz Fiore on 05-12-2023 Protein [Mass/Vol] 7.7 g/dL Normal 6.4-8.9 [facility] Comment on above: Performed By: #### C MP, CBC #### [address] Serum globulin measurement b y calculation (mass/volume)Ordered By: Luz Fiore on 05-12-2023 Globulin (S) [Mass/Vol] 3.1 g/dL [facility] Comment on above: Performed By: #### C MP, CBC #### [facility] [address] [place] [address] Serum or plasma albumin/glob ulin mass ratioOrdered By: Luz Fiore on 05-12-2023 Albumin/Globulin [Mass ratio] 1.5 {ratio} [facility] Comment on above: Performed By: #### C MP, CBC #### [facility] [address] [place] [address] Serum or plasma anion gap de terminationOrdered By: Luz Fiore on 05-12-2023 Anion gap [Moles/Vol] TNP [facility] Comment on above: Test not performed Sodium [Moles/volume] in Ser um or PlasmaOrdered By: Luz Fiore on 05-12-2023 Sodium [Moles/Vol] 140 mmol/L Normal 136-145 [facility] Comment on above: Performed By: #### C MP, CBC #### [facility] [address] [place] [address] [place] Specific gravity Auto test s trip (U) [Rel density]Ordered By: Luz Fiore on 05-12-2023 Specific gravity (U) [Rel density] 1.022 1.001-1.030 [facility] Squamous epithelial cells de tection in urine sediment by light microscopyOrdered By: Luz Fiore on 05-12-2023 Epithelial cells.squamous LM Ql (Urine sed) 5-9 [HPF] 0-2 [facility] Urea nitrogen [Mass/volume] in Serum or PlasmaOrdered By: Luz Fiore on 05-12-2023 Urea nitrogen [Mass/Vol] 11 mg/dL Normal 7-25 [facility] Comment on above: Performed By: #### C MP, CBC #### [facility] [address] [place] [address] [place] Urine bacteria detection by automated methodOrdered By: Luz Fiore on 05-12-2023 Bacteria Auto Ql (U) 1+ None Seen [facility] Urine clarity by refractomet ry automatedOrdered By: Luz Fiore on 05-12-2023 Clarity Refractometry automated (U) Cloudy Clear [facility] Urine glucose measurement by automated test strip (mass/volume)Ordered By: Luz Fiore on 05-12-2023 Glucose Auto test strip (U) [Mass/Vol] Normal mg/dL Normal [facility] Urine hemoglobin detection b y automated test stripOrdered By: Luz Fiore on 05-12-2023 Hemoglobin Auto test strip Ql (U) Trace Negative [facility] Urine leukocyte esterase det ection by automated test stripOrdered By: Luz Fiore on 05-12-2023 Leukocyte esterase Auto test strip Ql (U) Negative Negative [facility] Urine pH measurement by auto mated test stripOrdered By: Luz Fiore on 05-12-2023 pH (U) 7.0 [pH] Normal 5.0-9.0 [facility] Comment on above: Order Comment: Name Collection Type:: Clean-Voided Midstream Performed By: #### A FAUSOT [facility] ####[address] Urobilinogen Auto test strip (U) [Mass/Vol]Ordered By: Luz Fiore on 05-12-2023 Urobilinogen (U) [Mass/Vol] Normal mg/dL Normal [facility] Alanine aminotransferase [En zymatic activity/volume] in Serum or PlasmaOrdered By: Mario Alberto Jose on 04-12-2023 ALT [Catalytic activity/Vol] 8 U/L Normal 7-52 [facility] Comment on above: Performed By: #### C MP, CBC ####[address] Albumin [Mass/volume] in Ser um or Plasma by Bromocresol green (BCG) dye binding methoOrdered By: Mario Alberto Jose on 04-12-2023 Albumin BCG dye [Mass/Vol] 4.9 g/dL 3.5-5.7 [facility] Alkaline phosphatase [Enzyma tic activity/volume] in Serum or PlasmaOrdered By: Mario Alberto Jose on 04-12-2023 ALP [Catalytic activity/Vol] 69 U/L Normal 34-104 [facility] Comment on above: Performed By: #### C MP, CBC ####[address] Aspartate aminotransferase [ Enzymatic activity/volume] in Serum or PlasmaOrdered By: Mario Alberto Jose on 04-12-2023 AST [Catalytic activity/Vol] 18 U/L Normal 13-39 [facility] Comment on above: Performed By: #### C MP, CBC ####[address] Automated basophil %Ordered By: Mario Alberto Jose on 04-12-2023 Basophils/100 WBC (Bld) 0.4 % Normal . [facility] Comment on above: Performed By: #### C MP, CBC ####[place] [id number] [place] Automated basophil countOrde red By: Mario Alberto Jose on 04-12-2023 Basophils (Bld) [#/Vol] 0.0 10*3/uL Normal 0.0-0.2 [facility] Comment on above: Result Comment: PERF ORMED BY: [facility] [address] [place] [address] PATHOLOGIST GRAVITY PROSPECTING OBSERVER HELPER JOSE LUZ M.D. Performed By: #### C MP, CBC ####[address] Automated blood monocyte cou ntOrdered By: Mario Alberto Jose on 04-12-2023 Monocytes (Bld) [#/Vol] 0.5 10*3/uL Normal 0.0-0.8 [facility] Comment on above: Performed By: #### C MP, CBC ####[address] Automated eosinophil %Ordere d By: Mario Alberto Jose on 04-12-2023 Eosinophils/100 WBC (Bld) 0.5 % Normal . [facility] Comment on above: Performed By: #### C MP, CBC ####[address] Automated eosinophil countOr dered By: Mario Alberto Jose on 04-12-2023 Eosinophils (Bld) [#/Vol] 0.0 10*3/uL Normal 0.0-0.45 [facility] Comment on above: Performed By: #### C MP, CBC ####[address] Automated monocyte %Ordered By: Mario Alberto Jose on 04-12-2023 Monocytes/100 WBC (Bld) 5.6 % Normal . [facility] Comment on above: Performed By: #### C MP, CBC ####[address] Automated neutrophil %Ordere d By: Mario Alberto Jose on 04-12-2023 Neutrophils/100 WBC (Bld) 68.1 % Normal . [facility] Comment on above: Performed By: #### C MP, CBC ####[place] [id number] [facility] Bilirubin.total [Mass/volume ] in Serum or PlasmaOrdered By: Mario Alberto Damon on 04-12-2023 Bilirubin [Mass/Vol] 0.3 mg/dL Normal 0.3-1.0 [facility] Comment on above: Performed By: #### C MP, CBC ####[address] Calcium [Mass/volume] in Ser um or PlasmaOrdered By: Mario Alberto Jose on 04-12-2023 Calcium [Mass/Vol] 9.9 mg/dL Normal 8.6-10.3 [facility] Comment on above: Performed By: #### C MP, CBC ####[address] Carbon dioxide, total [Moles /volume] in Serum or PlasmaOrdered By: Mario Alberto Jose on 04-12-2023 CO2 [Moles/Vol] 27.5 mmol/L Normal 21.0-31.0 [facility] Comment on above: Performed By: #### C MP, CBC ####[address] Chloride [Moles/volume] in S alexis or PlasmaOrdered By: Mario Alberto Jose on 04-12-2023 Chloride [Moles/Vol] 104 mmol/L Normal 98-107 [facility] Comment on above: Performed By: #### C MP, CBC ####[place] [id number] [facility] Complete Blood Count Auto Di ffon 04-12-2023 Mean Corpuscular HGB Conc 33.3 g/dL Normal 32.0-35.0 [facility] Comment on above: Performed By: #### C MP, CBC ####[address] Monocytes/100 WBC (Bld) 15.89 % Normal 0.00-20.00 [facility] Comment on above: Performed By: #### C MP, CBC ####[address] NRBC% 0.1 /100{WBC} Normal 0-0.5 [facility] Comment on above: Performed By: #### C MP, CBC ####[address] [address] [facility] Comprehensive Metabolic Pane basmi 04-12-2023 Albumin [Mass/Vol] 4.9 g/dL Normal 3.5-5.7 [facility] Comment on above: Performed By: #### C MP, CBC ####[place] [id number] [facility] Creatinine Clr Calc Pharmacy 73.79 Normal [facility] Comment on above: Result Comment: PERF ORMED BY: [place] [address] PATHOLOGIST GRAVITY PROSPECTING OBSERVER HELPER JOSE LUZ M.D. Performed By: #### C MP, CBC ####[address] GFR/1.73 sq M.predicted MDRD (S/P/Bld) [Vol rate/Area] mL/min/{1.73_m2} Normal [facility] Comment on above: Performed By: #### C MP, CBC ####[place] [id number] [facility] Creatinine [Mass/volume] in Serum or PlasmaOrdered By: Mario Alberto Jose on 04-12-2023 Creatinine [Mass/Vol] 0.91 mg/dL Normal 0.60-1.20 [facility] Comment on above: Performed By: #### C MP, CBC ####[place] [id number] [facility] ECG 12 lead ECGon 04-12-2023 ECG 12 lead ECG [facility] [address] [address] [place] [address] Electrocardiograph Report Signed Patient: Bhavna Kovacs MR#: [id number] 668 : 2000 Acct:[id number] Age/Sex: 22 / F ADM Date: 04/12/23 Loc: ER Room: Type: DEP ER Attending Dr: Ordering Provider: Mario Alberto [...] Alberto Jose MD 04/12/23 1500 Normal [facility] Erythrocyte distribution wid th [Ratio] by Automated countOrdered By: Mario Alberto Jose on 04-12-2023 Erythrocyte distribution width (RBC) [Ratio] 14.8 % Normal 11.9-15.3 [facility] Comment on above: Performed By: #### C MP, CBC ####[facility] [address] [place] [id number] [facility] Erythrocytes [#/volume] in B lood by Automated countOrdered By: Mario Alberto Jose on 04-12-2023 RBC (Bld) [#/Vol] 4.78 10*6/uL Normal 3.60-5.00 [facility] Comment on above: Performed By: #### C MP, CBC ####[facility] [address] [place] [id number] [facility] Glucose [Mass/volume] in Ser um or PlasmaOrdered By: Mario Alberto Jose on 04-12-2023 Glucose [Mass/Vol] 92 mg/dL Normal 70-100 [facility] Comment on above: ADA recommended refe rence rangeRandom Glucose Reference Range is dependent on time and content of last meal. Glucose of more than 200 mg/dL in a nonstressed, ambulatory subject supports the diagnosis of Diabetes Mellitus. Result Comment: [place] om Glucose Reference Range is dependent on time and content of last meal. Glucose of more than 200 mg/dL in a nonstressed, ambulatory subject supports the diagnosis of Diabetes Mellitus. ADA recommended reference range Performed By: #### C MP, CBC ####[address] Hematocrit [Volume Fraction] of Blood by Automated countOrdered By: Mario Alberto Jose on 04-12-2023 Hematocrit (Bld) [Volume fraction] 40.6 % Normal 34.0-46.4 [facility] Comment on above: Performed By: #### C MP, CBC ####[address] Hemoglobin [Mass/volume] in BloodOrdered By: Mario Alberto Jose on 04-12-2023 Hemoglobin (Bld) [Mass/Vol] 13.5 g/dL Normal 11.8-15.4 [facility] Comment on above: Performed By: #### C MP, CBC ####[address] Leukocytes [#/volume] correc manjula for nucleated erythrocytes in Blood by Automated counOrdered By: Mario Alberto Jose on 04-12-2023 WBC corrected for nucl RBC Auto (Bld) [#/Vol] 9.7 10*3/uL 3.8-11.6 [facility] Leukocytes [#/volume] in Blo od by Automated countOrdered By: Mario Alberto Jose on 04-12-2023 WBC (Bld) [#/Vol] 9.7 10*3/uL Normal 3.8-11.6 [facility] Comment on above: Performed By: #### C MP, CBC ####[address] Lymphocytes [#/volume] in Bl ood by Automated countOrdered By: Mario Alberto Jose on 04-12-2023 Lymphocytes (Bld) [#/Vol] 2.5 10*3/uL Normal 1.00-4.8 [facility] Comment on above: Performed By: #### C MP, CBC ####[place] [id number] [place] Lymphocytes/100 leukocytes i n Blood by Automated countOrdered By: Mario Alberto Jose on 04-12-2023 Lymphocytes/100 WBC (Bld) 25.4 % Normal . [facility] Comment on above: Performed By: #### C MP, CBC ####[address] MCH [Entitic mass] by Automa manjula countOrdered By: Mario Alberto Jose on 04-12-2023 MCH (RBC) [Entitic mass] 28.2 pg Normal 24.7-34.3 [facility] Comment on above: Performed By: #### C MP, CBC ####[address] MCHC Auto (RBC) [Mass/Vol]Or dered By: Mario Alberto Jose on 04-12-2023 MCHC (RBC) [Mass/Vol] 33.3 g/dL 32.0-35.0 [facility] MCV [Entitic volume] by Auto mated countOrdered By: Mario Alberto Jose on 04-12-2023 MCV (RBC) [Entitic vol] 84.9 fL Normal 80-100 [facility] Comment on above: Performed By: #### C MP, CBC ####[address] Monocyte distribution width [Entitic volume] in Blood by AutomatedOrdered By: Mario Alberto Jose on 04-12-2023 Monocyte distribution width Auto (Bld) [Entitic vol] 15.89 % 0.00-20.00 [facility] Neutrophils [#/volume] in Bl ood by Automated countOrdered By: Mario Alberto Jose on 04-12-2023 Neutrophils (Bld) [#/Vol] 6.6 10*3/uL Normal 1.8-7.7 [facility] Comment on above: Performed By: #### C MP, CBC ####[address] No Panel InformationOrdered By: Mario Alberto Jose on 04-12-2023 Estimated GFR (CKD-EPI) > 60.0 mL/Min [facility] Creatinine Clearance (Chem 73.79 [facility] Nucleated erythrocytes [Pres ence] in Blood by Automated countOrdered By: Mario Alberto Jose on 04-12-2023 Nucleated RBC Auto Ql (Bld) 0.1 /100{WBC} 0-0.5 [facility] Platelet mean volume [Entiti c volume] in Blood by Automated countOrdered By: Mario Alberto Jose on 04-12-2023 Platelet mean volume (Bld) [Entitic vol] 7.7 fL Normal 6.3-10.7 [facility] Comment on above: Performed By: #### C MP, CBC ####[address] Platelets [#/volume] in Bloo d by Automated countOrdered By: Mario Alberto Jose on 04-12-2023 Platelets (Bld) [#/Vol] 307 10*3/uL Normal 150-450 [facility] Comment on above: Performed By: #### C MP, CBC ####[address] Potassium [Moles/volume] in Serum or PlasmaOrdered By: Mario Alberto Jose on 04-12-2023 Potassium [Moles/Vol] 4.1 mmol/L Normal 3.5-5.1 [facility] Comment on above: Performed By: #### C MP, CBC ####[address] Protein [Mass/volume] in Ser um or PlasmaOrdered By: Mario Alberto Jose on 04-12-2023 Protein [Mass/Vol] 8.4 g/dL Normal 6.4-8.9 [facility] Comment on above: Performed By: #### C MP, CBC ####[place] [id number] [facility] Serum globulin measurement b y calculation (mass/volume)Ordered By: Mario Alberto Jose on 04-12-2023 Globulin (S) [Mass/Vol] 3.5 g/dL [facility] Comment on above: Performed By: #### C MP, CBC ####[place] [id number] [facility] Serum or plasma albumin/glob ulin mass ratioOrdered By: Mario Alberto Jose on 04-12-2023 Albumin/Globulin [Mass ratio] 1.4 {ratio} Normal [facility] Comment on above: Performed By: #### C MP, CBC ####[address] Serum or plasma anion gap de terminationOrdered By: Mario Albetro Jose on 04-12-2023 Anion gap [Moles/Vol] 13.6 mmol/L Normal 6.0-15.0 [facility] Comment on above: Performed By: #### C MP, CBC ####[address] Sodium [Moles/volume] in Ser um or PlasmaOrdered By: Mario Alberto Jose on 04-12-2023 Sodium [Moles/Vol] 141 mmol/L Normal 136-145 [facility] Comment on above: Performed By: #### C MP, CBC ####[address] Urea nitrogen [Mass/volume] in Serum or PlasmaOrdered By: Mario Alberto Jose on 04-12-2023 Urea nitrogen [Mass/Vol] 9 mg/dL Normal 7-25 [facility] Comment on above: Performed By: #### C MP, CBC ####[address] Alanine aminotransferase [En zymatic activity/volume] in Serum or PlasmaOrdered By: Milton Rivera on 03-23-2023 ALT [Catalytic activity/Vol] 8 U/L Normal 7-52 [facility] Comment on above: Performed By: #### C K, PRL, CBC, CMP, LACTIC ####[address] Albumin [Mass/volume] in Ser um or Plasma by Bromocresol green (BCG) dye binding methoOrdered By: Milton Rivera on 03-23-2023 Albumin BCG dye [Mass/Vol] 4.9 g/dL 3.5-5.7 [facility] Alkaline phosphatase [Enzyma tic activity/volume] in Serum or PlasmaOrdered By: Milton Rivera on 03-23-2023 ALP [Catalytic activity/Vol] 59 U/L Normal 34-104 [facility] Comment on above: Performed By: #### C K, PRL, CBC, CMP, LACTIC ####[address] Aspartate aminotransferase [ Enzymatic activity/volume] in Serum or PlasmaOrdered By: Milton Rivera on 03-23-2023 AST [Catalytic activity/Vol] 20 U/L Normal 13-39 [facility] Comment on above: Performed By: #### C K, PRL, CBC, CMP, LACTIC ####[address] Automated basophil %Ordered By: Milton Rivera on 03-23-2023 Basophils/100 WBC (Bld) 0.5 % Normal . [facility] Comment on above: Performed By: #### C K, PRL, CBC, CMP, LACTIC ####[address] Automated basophil countOrde red By: Milton Rivera on 03-23-2023 Basophils (Bld) [#/Vol] 0.0 10*3/uL Normal 0.0-0.2 [facility] Comment on above: Result Comment: PERF ORMED BY: [facility] [address] [place] [address] PATHOLOGIST GRAVITY PROSPECTING OBSERVER HELPER JOSE LUZ M.D. Performed By: #### C K, PRL, CBC, CMP, LACTIC ####[address] Automated blood monocyte cou ntOrdered By: Milton Rivera on 03-23-2023 Monocytes (Bld) [#/Vol] 0.6 10*3/uL Normal 0.0-0.8 [facility] Comment on above: Performed By: #### C K, PRL, CBC, CMP, LACTIC ####[address] Automated eosinophil %Ordere d By: Milton Rivera on 03-23-2023 Eosinophils/100 WBC (Bld) 0.4 % Normal . [facility] Comment on above: Performed By: #### C K, PRL, CBC, CMP, LACTIC ####[address] Automated eosinophil countOr dered By: Milton Rivera on 03-23-2023 Eosinophils (Bld) [#/Vol] 0.0 10*3/uL Normal 0.0-0.45 [facility] Comment on above: Performed By: #### C K, PRL, CBC, CMP, LACTIC ####[address] Automated monocyte %Ordered By: Milton Rivera on 03-23-2023 Monocytes/100 WBC (Bld) 6.9 % Normal . [facility] Comment on above: Performed By: #### C K, PRL, CBC, CMP, LACTIC ####[address] Automated neutrophil %Ordere d By: Milton Rivera on 03-23-2023 Neutrophils/100 WBC (Bld) 55.0 % Normal . [facility] Comment on above: Performed By: #### C K, PRL, CBC, CMP, LACTIC ####[address] Bilirubin.total [Mass/volume ] in Serum or PlasmaOrdered By: Milton Rivera on 03-23-2023 Bilirubin [Mass/Vol] 0.4 mg/dL Normal 0.3-1.0 [facility] Comment on above: Performed By: #### C K, PRL, CBC, CMP, LACTIC ####[address] Calcium [Mass/volume] in Ser um or PlasmaOrdered By: Milton Rivera on 03-23-2023 Calcium [Mass/Vol] 9.6 mg/dL Normal 8.6-10.3 [facility] Comment on above: Performed By: #### C K, PRL, CBC, CMP, LACTIC ####[address] Capillary blood glucose randi urement by glucometer (mass/volume)Ordered By: CRISTIANE TEMKrystian on 03-23-2023 Glucose [Mass/Vol] 88 mg/dL Normal [facility] Comment on above: Random Glucose Refer ence Range is dependent on time and content of last meal. Glucose of more than 200 mg/dL in a nonstressed, ambulatory subject supports the diagnosis of Diabetes Mellitus. Result Comment: [place] Glucose Reference Range is dependent on time and content of last meal. Glucose of more than 200 mg/dL in a nonstressed, ambulatory subject supports the diagnosis of Diabetes Mellitus. Performed By: #### G RONALD #### Point of Care testing , Carbon dioxide, total [Moles /volume] in Serum or PlasmaOrdered By: Milton Rivera on 03-23-2023 CO2 [Moles/Vol] 21.8 mmol/L Normal 21.0-31.0 [facility] Comment on above: Performed By: #### C K, PRL, CBC, CMP, LACTIC ####[place] [id number] [address] Chloride [Moles/volume] in S alexis or PlasmaOrdered By: Milton Rivera on 03-23-2023 Chloride [Moles/Vol] 105 mmol/L Normal 98-107 [facility] Comment on above: Performed By: #### C K, PRL, CBC, CMP, LACTIC ####[address] Complete Blood Count Auto Di ffon 03-23-2023 Mean Corpuscular HGB Conc 33.5 g/dL Normal 32.0-35.0 [facility] Comment on above: Performed By: #### C K, PRL, CBC, CMP, LACTIC ####[place] [id number] [address] Monocytes/100 WBC (Bld) 21.12 % High 0.00-20.00 [facility] Comment on above: Result Comment: For adults in ED, MDW > 20.0 may be associated with a higher risk of sepsis during the first 12 hrs of hospital admission Performed By: #### C K, PRL, CBC, CMP, LACTIC ####[address] NRBC% 0.1 /100{WBC} Normal 0-0.5 [facility] Comment on above: Performed By: #### C K, PRL, CBC, CMP, LACTIC ####[place] [id number] [place] [id number] [facility] Comprehensive Metabolic Pane basim 03-23-2023 Albumin [Mass/Vol] 4.9 g/dL Normal 3.5-5.7 [facility] Comment on above: Performed By: #### C K, PRL, CBC, CMP, LACTIC ####[place] [id number] [facility] Creatinine Clr Calc Pharmacy 85.00 Normal [facility] Comment on above: Performed By: #### C K, PRL, CBC, CMP, LACTIC ####[place] [id number] [facility] GFR/1.73 sq M.predicted MDRD (S/P/Bld) [Vol rate/Area] mL/min/{1.73_m2} Normal [facility] Comment on above: Performed By: #### C K, PRL, CBC, CMP, LACTIC ####[place] [id number] [facility] Creatine kinase [Enzymatic a ctivity/volume] in Serum or PlasmaOrdered By: Milton Rivera on 03-23-2023 CK [Catalytic activity/Vol] 45 U/L Normal 30-223 [facility] Comment on above: Result Comment: PERF ORMED BY: [facility] [address] [place] [address] PATHOLOGIST GRAVITY PROSPECTING OBSERVER HELPER JOSE LUZ M.D. Performed By: #### C K, PRL, CBC, CMP, LACTIC ####[place] [id number] [facility] Creatinine [Mass/volume] in Serum or PlasmaOrdered By: Milton Rivera on 03-23-2023 Creatinine [Mass/Vol] 0.79 mg/dL Normal 0.60-1.20 [facility] Comment on above: Performed By: #### C K, PRL, CBC, CMP, LACTIC ####[place] [id number] [facility] ECG 12 lead ECGon 03-23-2023 ECG 12 lead ECG [facility] [address] [place] [address] [place] [address] Electrocardiograph Report Signed Patient: Bhavna Kovacs MR#: [id number] : 2000 Acct:[id number] Age/Sex: 22 / F ADM Date: 03/23/23 Loc: ER Room: Type: [facility] ER Attending Dr: Ordering Provider: Milton Rivera [...] Biatrial enlargement Confirmed by Bobby Gallagher DO ([id number]) on 03/23/2023 7:47:54 PM Referred By: Electronically Signed By:Bobby Gallagher DO Transcribed By: MUS Signed By Bobby Gallagher DO 1945 Normal [facility] Erythrocyte distribution wid th [Ratio] by Automated countOrdered By: Milton Rivera on 03-23-2023 Erythrocyte distribution width (RBC) [Ratio] 15.2 % Normal 11.9-15.3 [facility] Comment on above: Performed By: #### C K, PRL, CBC, CMP, LACTIC ####[facility] [id number] [place] [id number] [place] Erythrocytes [#/volume] in B lood by Automated countOrdered By: Milton Rivera on 03-23-2023 RBC (Bld) [#/Vol] 4.78 10*6/uL Normal 3.60-5.00 [facility] Comment on above: Performed By: #### C K, PRL, CBC, CMP, LACTIC ####[facility] [id number] [place] [id number] [facility] Glucose Poct Glucometerson 0 03-23-2023 Commemt1 Glu2: Cleaned Meter Normal [facility] Comment on above: Result Comment: PERF ORMED BY: [facility] [address] [place] [id number] PATHOLOGIST GRAVITY PROSPECTING OBSERVER HELPER JOSE LUZ M.D. Performed By: #### G RONALD #### Point of Care testing , Glucose [Mass/volume] in Ser um or PlasmaOrdered By: Miltno Rivera on 03-23-2023 Glucose [Mass/Vol] 81 mg/dL Normal 70-100 [facility] Comment on above: ADA recommended refe rence rangeRandom Glucose Reference Range is dependent on time and content of last meal. Glucose of more than 200 mg/dL in a nonstressed, ambulatory subject supports the diagnosis of Diabetes Mellitus. Result Comment: [place] om Glucose Reference Range is dependent on time and content of last meal. Glucose of more than 200 mg/dL in a nonstressed, ambulatory subject supports the diagnosis of Diabetes Mellitus. ADA recommended reference range Performed By: #### C K, PRL, CBC, CMP, LACTIC ####[place] [id number] [place] [id number] [facility] Hematocrit [Volume Fraction] of Blood by Automated countOrdered By: Milton Rivera on 03-23-2023 Hematocrit (Bld) [Volume fraction] 41.0 % Normal 34.0-46.4 [facility] Comment on above: Performed By: #### C K, PRL, CBC, CMP, LACTIC ####[place] [address] [place] [address] [facility] Hemoglobin [Mass/volume] in BloodOrdered By: Milton Rivera on 03-23-2023 Hemoglobin (Bld) [Mass/Vol] 13.8 g/dL Normal 11.8-15.4 [facility] Comment on above: Performed By: #### C K, PRL, CBC, CMP, LACTIC ####[place] [id number] [place] Lactate [Moles/volume] in Se rum or PlasmaOrdered By: Milton Rivera on 03-23-2023 Lactate [Moles/Vol] 0.8 mmol/L Normal 0.5-2.2 [facility] Comment on above: Result Comment: PERF ORMED BY: [place] [address] PATHOLOGIST GRAVITY PROSPECTING OBSERVER HELPER JOSE LUZ M.D. Performed By: #### C K, PRL, CBC, CMP, LACTIC ####[facility] [id number] [place] [address] [facility] Lamotrigine (Lamictal)on Lamotrigine (Lamictal) 2.0 ug/mL Normal 2.0-20.0 [facility] Comment on above: Result Comment: Dete ction Limit = 1.0 Performed at: [facility] - [facility] [address] [id number] Early Morning Babysitter: Sina Hills MD, Phone: [phone] PERFORMED BY: [place] [address] PATHOLOGIST GRAVITY PROSPECTING OBSERVER HELPER JOSE LUZ M.D. Performed By: #### L AMOT ####[facility] , Leukocytes [#/volume] correc manjula for nucleated erythrocytes in Blood by Automated counOrdered By: Milton Rivera on 03-23-2023 WBC corrected for nucl RBC Auto (Bld) [#/Vol] 8.9 10*3/uL 3.8-11.6 [facility] Leukocytes [#/volume] in Blo od by Automated countOrdered By: Milton Rivera on 03-23-2023 WBC (Bld) [#/Vol] 8.9 10*3/uL Normal 3.8-11.6 [facility] Comment on above: Performed By: #### C K, PRL, CBC, CMP, LACTIC ####[facility] [id number] [place] [address] [facility] Levetiracetam (Keppra)on levETIRAcetam [Mass/Vol] 15.5 ug/mL Normal 10.0-40.0 [facility] Comment on above: Result Comment: Perf ormed at: [facility] - [facility] [address] [id number] Early Morning Babysitter: Sina Hills MD, Phone: [phone] PERFORMED BY: [facility] [address] [place] [address] PATHOLOGIST GRAVITY PROSPECTING OBSERVER HELPER JOSE LUZ M.D. Performed By: #### L EV ####[facility] , Lymphocytes [#/volume] in Bl ood by Automated countOrdered By: Milton Rivera on 03-23-2023 Lymphocytes (Bld) [#/Vol] 3.3 10*3/uL Normal 1.00-4.8 [facility] Comment on above: Performed By: #### C K, PRL, CBC, CMP, LACTIC ####[address] Lymphocytes/100 leukocytes i n Blood by Automated countOrdered By: Milton Rivera on 03-23-2023 Lymphocytes/100 WBC (Bld) 37.2 % Normal . [facility] Comment on above: Performed By: #### C K, PRL, CBC, CMP, LACTIC ####[address] MCH [Entitic mass] by Automa manjula countOrdered By: Milton Rivera on 03-23-2023 MCH (RBC) [Entitic mass] 28.8 pg Normal 24.7-34.3 [facility] Comment on above: Performed By: #### C K, PRL, CBC, CMP, LACTIC ####[address] MCHC Auto (RBC) [Mass/Vol]Or dered By: Milton Rivera on 03-23-2023 MCHC (RBC) [Mass/Vol] 33.5 g/dL 32.0-35.0 [facility] MCV [Entitic volume] by Auto mated countOrdered By: Milton Rivera on 03-23-2023 MCV (RBC) [Entitic vol] 85.9 fL Normal 80-100 [facility] Comment on above: Performed By: #### C K, PRL, CBC, CMP, LACTIC ####[address] Monocyte distribution width [Entitic volume] in Blood by AutomatedOrdered By: Milton Rivera on 03-23-2023 Monocyte distribution width Auto (Bld) [Entitic vol] 21.12 % 0.00-20.00 [facility] Comment on above: For adults in ED, MD W > 20.0 may be associated with a higher risk of sepsis during the first 12 hrs of hospital admission Neutrophils [#/volume] in Bl ood by Automated countOrdered By: Milton Rivera on 03-23-2023 Neutrophils (Bld) [#/Vol] 4.9 10*3/uL Normal 1.8-7.7 [facility] Comment on above: Performed By: #### C K, PRL, CBC, CMP, LACTIC ####[facility] [id number] No Panel InformationOrdered By: Margarita Gallo on 03-23-2023 Lamotrigine (Lamictal) Level 2.0 ug/mL 2.0-20.0 [facility] Comment on above: Detection Limit = 1. 0Performed at: [facility] - [facility] [place] [id number] Director: Sina Hills MD, Phone: [phone] Levetiracetam (Keppra) Level 15.5 ug/mL 10.0-40.0 [facility] Comment on above: Performed at: [facility] [place], [place] [id number] Director: Sina Hills MD, Phone: [phone] No Panel InformationOrdered By: PROVIDER TEMP on 03-23-2023 Bedside Glucose Comment Glu2: cleaned meter [facility] No Panel InformationOrdered By: Milton Rivera on 03-23-2023 Estimated GFR (CKD-EPI) > 60.0 mL/Min [facility] Creatinine Clearance (Chem 85.00 [facility] Nucleated erythrocytes [Pres ence] in Blood by Automated countOrdered By: Milton Rivera on 03-23-2023 Nucleated RBC Auto Ql (Bld) 0.1 /100{WBC} 0-0.5 [facility] Platelet mean volume [Entiti c volume] in Blood by Automated countOrdered By: Milton Rivera on 03-23-2023 Platelet mean volume (Bld) [Entitic vol] 8.6 fL Normal 6.3-10.7 [facility] Comment on above: Performed By: #### C K, PRL, CBC, CMP, LACTIC ####[place] [address] [place] [id number] [facility] Platelets [#/volume] in Bloo d by Automated countOrdered By: Milton Rivera on 03-23-2023 Platelets (Bld) [#/Vol] 257 10*3/uL Normal 150-450 [facility] Comment on above: Performed By: #### C K, PRL, CBC, CMP, LACTIC ####[place] [address] [place] [id number] [facility] Potassium [Moles/volume] in Serum or PlasmaOrdered By: Milton Rivera on 03-23-2023 Potassium [Moles/Vol] 4.3 mmol/L Normal 3.5-5.1 [facility] Comment on above: Performed By: #### C K, PRL, CBC, CMP, LACTIC ####[place] [id number] [facility] Prolactinon 03-23-2023 Prolactin 23.65 ng/mL Normal 3.34-26.72 [facility] Comment on above: Result Comment: PERF ORMED BY: [facility] [address] [place] [id number] PATHOLOGIST GRAVITY PROSPECTING OBSERVER HELPER JOSE LUZ M.D. Performed By: #### C K, PRL, CBC, CMP, LACTIC ####[place] [id number] [facility] Prolactin [Mass/volume] in S alexis or PlasmaOrdered By: Milton Rivera on 03-23-2023 Prolactin [Mass/Vol] 23.65 ng/mL 3.34-26.72 [facility] Protein [Mass/volume] in Ser um or PlasmaOrdered By: Milton Rivera on 03-23-2023 Protein [Mass/Vol] 8.1 g/dL Normal 6.4-8.9 [facility] Comment on above: Performed By: #### C K, PRL, CBC, CMP, LACTIC ####[address] Serum globulin measurement b y calculation (mass/volume)Ordered By: Milton Rivera on 03-23-2023 Globulin (S) [Mass/Vol] 3.2 g/dL [facility] Comment on above: Performed By: #### C K, PRL, CBC, CMP, LACTIC ####[address] Serum or plasma albumin/glob ulin mass ratioOrdered By: Milton Rivera on 03-23-2023 Albumin/Globulin [Mass ratio] 1.5 {ratio} [facility] Comment on above: Performed By: #### C K, PRL, CBC, CMP, LACTIC ####[address] Serum or plasma anion gap de terminationOrdered By: Milton Rivera on 03-23-2023 Anion gap [Moles/Vol] 16.5 mmol/L High 6.0-15.0 [facility] Comment on above: Performed By: #### C K, PRL, CBC, CMP, LACTIC ####[address] Sodium [Moles/volume] in Ser um or PlasmaOrdered By: Milton Rivera on 03-23-2023 Sodium [Moles/Vol] 139 mmol/L Normal 136-145 [facility] Comment on above: Performed By: #### C K, PRL, CBC, CMP, LACTIC ####[address] Urea nitrogen [Mass/volume] in Serum or PlasmaOrdered By: Milton Rivera on 03-23-2023 Urea nitrogen [Mass/Vol] 12 mg/dL Normal 7-25 [facility] Comment on above: Performed By: #### C K, PRL, CBC, CMP, LACTIC ####[address] Alanine aminotransferase [En zymatic activity/volume] in Serum or PlasmaOrdered By: Luz Fiore on 03-11-2023 ALT [Catalytic activity/Vol] 6 U/L Low 7-52 [facility] Comment on above: Performed By: #### C BC, CMP #### [facility] [address] [place] [address] [place] #### LEV #### [facility] , Albumin [Mass/volume] in Ser um or Plasma by Bromocresol green (BCG) dye binding methoOrdered By: Luz Fiore on 03-11-2023 Albumin BCG dye [Mass/Vol] 4.5 g/dL 3.5-5.7 [facility] Alkaline phosphatase [Enzyma tic activity/volume] in Serum or PlasmaOrdered By: Luz Fiore on 03-11-2023 ALP [Catalytic activity/Vol] 55 U/L Normal 34-104 [facility] Comment on above: Performed By: #### C BC, CMP #### [facility] [address] [place] [address] [place] #### LEV #### [facility] , Aspartate aminotransferase [ Enzymatic activity/volume] in Serum or PlasmaOrdered By: Luz Fiore on 03-11-2023 AST [Catalytic activity/Vol] 14 U/L Normal 13-39 [facility] Comment on above: Performed By: #### C NARCISO, CMP #### [place] [address] [place] #### LEV #### [facility] , Automated basophil %Ordered By: Luz Fiore on 03-11-2023 Basophils/100 WBC (Bld) 0.5 % Normal . [facility] Comment on above: Performed By: #### C BC, CMP #### [facility] [address] [place] [address] [place] #### LEV #### [facility] , Automated basophil countOrde red By: Luz Fiore on 03-11-2023 Basophils (Bld) [#/Vol] 0.0 10*3/uL Normal 0.0-0.2 [facility] Comment on above: Result Comment: PERF ORMED BY: [place] [address] PATHOLOGIST GRAVITY PROSPECTING OBSERVER HELPER JOSE LUZ M.D. Performed By: #### C BC, CMP #### [place] [address] [place] #### LEV #### [facility] , Automated blood monocyte cou ntOrdered By: Luz Fiore on 03-11-2023 Monocytes (Bld) [#/Vol] 0.5 10*3/uL Normal 0.0-0.8 [facility] Comment on above: Performed By: #### C BC, CMP #### [place] [address] [place] #### LEV #### [facility] , Automated eosinophil %Ordere d By: Luz Fiore on 03-11-2023 Eosinophils/100 WBC (Bld) 0.5 % Normal . [facility] Comment on above: Performed By: #### C BC, CMP #### [place] [address] [place] #### LEV #### [facility] , Automated eosinophil countOr dered By: Luz Fiore on 03-11-2023 Eosinophils (Bld) [#/Vol] 0.0 10*3/uL Normal 0.0-0.45 [facility] Comment on above: Performed By: #### C BC, CMP #### [place] [address] [place] #### LEV #### [facility] , Automated erythrocytes count in urine sediment (number/area)Ordered By: Luz Fiore on 03-11-2023 RBC Auto (Urine sed) [#/Area] 3-4 [HPF] 0-4 [facility] Automated leukocytes count i n urine sediment (number/area)Ordered By: Luz Fiore on 03-11-2023 WBC Auto (Urine sed) [#/Area] 3-4 [HPF] 0-4 [facility] Automated monocyte %Ordered By: Luz Fiore on 03-11-2023 Monocytes/100 WBC (Bld) 5.8 % Normal . [facility] Comment on above: Performed By: #### C BC, CMP #### [facility] [address] [place] [address] [place] #### LEV #### [facility] , Automated neutrophil %Ordere d By: Luz Adebayo on 03-11-2023 Neutrophils/100 WBC (Bld) 69.5 % Normal . [facility] Comment on above: Performed By: #### C BC, CMP #### [place] [address] [place] #### LEV #### [facility] , Automated urine color determ inationOrdered By: Luzjennifer Fiore on 03-11-2023 Color (U) Yellow Normal Yellow [facility] Comment on above: Order Comment: Name Collection Type:: Clean-Voided Midstream Performed By: #### A DDONUAPLUS #### [address] Bilirubin Test strip Ql (U)O rdered By: Luz Fiore on 03-11-2023 Bilirubin Ql (U) Negative Negative [facility] Bilirubin.total [Mass/volume ] in Serum or PlasmaOrdered By: Luz Fiore on 03-11-2023 Bilirubin [Mass/Vol] 0.4 mg/dL Normal 0.3-1.0 [facility] Comment on above: Performed By: #### C BC, CMP #### [place] [address] [place] #### LEV #### [facility] , Calcium [Mass/volume] in Ser um or PlasmaOrdered By: Luz Fiore on 03-11-2023 Calcium [Mass/Vol] 9.3 mg/dL Normal 8.6-10.3 [facility] Comment on above: Performed By: #### C BC, CMP #### [place] [address] [place] #### LEV #### [facility] , Carbon dioxide, total [Moles /volume] in Serum or PlasmaOrdered By: Luz Fiore on 03-11-2023 CO2 [Moles/Vol] 23.3 mmol/L Normal 21.0-31.0 [facility] Comment on above: Performed By: #### C BC, CMP #### [place] [address] [place] #### LEV #### [facility] , Chloride [Moles/volume] in S alexis or PlasmaOrdered By: Luz Fiore on 03-11-2023 Chloride [Moles/Vol] 107 mmol/L Normal 98-107 [facility] Comment on above: Performed By: #### C BC, CMP #### [place] [address] [place] #### LEV #### [facility] , Complete Blood Count Auto Di ffon 03-11-2023 Mean Corpuscular HGB Conc 33.7 g/dL Normal 32.0-35.0 [facility] Comment on above: Performed By: #### C BC, CMP #### [place] [address] [place] #### LEV #### [facility] , Monocytes/100 WBC (Bld) 17.06 % Normal 0.00-20.00 [facility] Comment on above: Performed By: #### C BC, CMP #### [facility] [address] [place] [address] [place] #### LEV #### [facility] , NRBC% 0.0 /100{WBC} Normal 0-0.5 [facility] Comment on above: Performed By: #### C BC, CMP #### [facility] [address] [place] [address] [place] #### LEV #### [facility] , Comprehensive Metabolic Pane basim 03-11-2023 Albumin [Mass/Vol] 4.5 g/dL Normal 3.5-5.7 [facility] Comment on above: Performed By: #### C BC, CMP #### [facility] [address] [place] [address] #### LEV #### [facility] , Creatinine Clr Calc Pharmacy 65.12 Normal [facility] Comment on above: Result Comment: PERF ORMED BY: [place] [address] PATHOLOGIST GRAVITY PROSPECTING OBSERVER HELPER JOSE LUZ M.D. Performed By: #### C BC, CMP #### [address] #### LEV #### [facility] , GFR/1.73 sq M.predicted MDRD (S/P/Bld) [Vol rate/Area] mL/min/{1.73_m2} Normal [facility] Comment on above: Performed By: #### C BC, CMP #### [address] #### LEV #### [facility] , Creatinine [Mass/volume] in Serum or PlasmaOrdered By: Luz Fiore on 03-11-2023 Creatinine [Mass/Vol] 0.91 mg/dL Normal 0.60-1.20 [facility] Comment on above: Performed By: #### C BC, CMP #### [address] #### LEV #### [facility] , Dipstick and Microscopicon 0 03-11-2023 Appearance (U) Clear Normal Clear [facility] Comment on above: Order Comment: Name Collection Type:: Clean-Voided Midstream Performed By: #### A DDONUAPLUS #### [address] Bacteria,Urine 1+ High None Seen [facility] Comment on above: Order Comment: Name Collection Type:: Clean-Voided Midstream Performed By: #### A DDONUAPLUS #### [address] [place] [address] [place] Bilirubin,Urine Negative Normal Negative [facility] Comment on above: Order Comment: Name Collection Type:: Clean-Voided Midstream Performed By: #### A DDONUAPLUS #### [address] [address] [place] Glucose Ql (U) Normal Normal Normal [facility] Comment on above: Order Comment: Name Collection Type:: Clean-Voided Midstream Performed By: #### A DDONUAPLUS #### [place] [address] [place] Hyaline Casts,Urine 0-8 Normal 0-8 [facility] Comment on above: Order Comment: Name Collection Type:: Clean-Voided Midstream Result Comment: PERF ORMED BY: [place] [address] PATHOLOGIST GRAVITY PROSPECTING OBSERVER HELPER JOSE LUZ M.D. Performed By: #### A DDONUAPLUS #### [place] [address] [place] Ketones Ql (U) Negative Normal Negative [facility] Comment on above: Order Comment: Name Collection Type:: Clean-Voided Midstream Performed By: #### A DDONUAPLUS #### [place] [address] [place] Leukocyte esterase Test strip Ql (U) Negative Normal Negative [facility] Comment on above: Order Comment: Name Collection Type:: Clean-Voided Midstream Performed By: #### A DDONUAPLUS #### [place] [address] [place] Nitrite,Urine Negative Normal Negative [facility] Comment on above: Order Comment: Name Collection Type:: Clean-Voided Midstream Performed By: #### A DDONUAPLUS #### [place] [address] [place] Occult Blood,Urine 1+ High Negative [facility] Comment on above: Order Comment: Name Collection Type:: Clean-Voided Midstream Result Comment: PERF ORMED BY: [address] [place] [address] PATHOLOGIST GRAVITY PROSPECTING OBSERVER HELPER JOSE LUZ M.D. Performed By: #### A DDONUAPLUS #### [place] [address] [place] Protein,Urine Negative Normal Negative [facility] Comment on above: Order Comment: Name Collection Type:: Clean-Voided Midstream Performed By: #### A DDONUAPLUS #### [place] [address] [place] RBC,Urine 3-4 Normal 0-4 [facility] Comment on above: Order Comment: Name Collection Type:: Clean-Voided Midstream Performed By: #### A DDONUAPLUS #### [place] [address] [place] Specificy [place],Urine 1.019 Normal 1.001-1.030 [facility] Comment on above: Order Comment: Name Collection Type:: Clean-Voided Midstream Performed By: #### A DDONUAPLUS #### [place] [address] [place] Squamous Epithelial Cell,Urine 1-2 Normal 0-2 [facility] Comment on above: Order Comment: Name Collection Type:: Clean-Voided Midstream Performed By: #### A DDONUAPLUS #### [place] [address] [place] Urobilinogen,Urine Normal Normal Normal [facility] Comment on above: Order Comment: Name Collection Type:: Clean-Voided Midstream Performed By: #### A DDONUAPLUS #### [place] [address] [place] WBC,Urine 3-4 Normal 0-4 [facility] Comment on above: Order Comment: Name Collection Type:: Clean-Voided Midstream Performed By: #### A DDONUAPLUS #### [place] [address] [place] ECG 12 lead ECGon 03-11-2023 ECG 12 lead ECG [facility] [address] [place] [address] Electrocardiograph Report Signed Patient: Bhavna Kovacs MR#: [id number] : 2000 Acct:[id number] Age/Sex: 22 / F ADM Date: 03/11/23 Loc: ER Room: Type: [facility] ER Attending Dr: Ordering Provider: Luz Fiore [...] was found Confirmed by LUZ FIORE DO ([id number]) on 03/11/2023 4:31:09 PM Referred By: Electronically Signed By:LUZ FIORE DO Transcribed By: MUS Signed By Luz Fiore DO 03/11 1631 Normal [facility] Erythrocyte distribution wid th [Ratio] by Automated countOrdered By: Luz Fiore on 03-11-2023 Erythrocyte distribution width (RBC) [Ratio] 15.3 % Normal 11.9-15.3 [facility] Comment on above: Performed By: #### C BC, CMP #### [facility] [address] [place] [address] [place] #### LEV #### [facility] , Erythrocytes [#/volume] in B lood by Automated countOrdered By: Luz Fiore on 03-11-2023 RBC (Bld) [#/Vol] 4.36 10*6/uL Normal 3.60-5.00 [facility] Comment on above: Performed By: #### C BC, CMP #### [facility] [address] [place] [address] [place] #### LEV #### [facility] , Glucose [Mass/volume] in Ser um or PlasmaOrdered By: Luz Fiore on 03-11-2023 Glucose [Mass/Vol] 89 mg/dL Normal 70-100 [facility] Comment on above: ADA recommended refe rence rangeRandom Glucose Reference Range is dependent on time and content of last meal. Glucose of more than 200 mg/dL in a nonstressed, ambulatory subject supports the diagnosis of Diabetes Mellitus. Result Comment: [place] om Glucose Reference Range is dependent on time and content of last meal. Glucose of more than 200 mg/dL in a nonstressed, ambulatory subject supports the diagnosis of Diabetes Mellitus. ADA recommended reference range Performed By: #### C BC, CMP #### [facility] [address] [place] [address] [place] #### LEV #### [facility] , Hematocrit [Volume Fraction] of Blood by Automated countOrdered By: Luz Fiore on 03-11-2023 Hematocrit (Bld) [Volume fraction] 37.1 % Normal 34.0-46.4 [facility] Comment on above: Performed By: #### C BC, CMP #### [place] [address] [place] #### LEV #### [facility] , Hemoglobin [Mass/volume] in BloodOrdered By: Luz Fiore on 03-11-2023 Hemoglobin (Bld) [Mass/Vol] 12.5 g/dL Normal 11.8-15.4 [facility] Comment on above: Performed By: #### C BC, CMP #### [facility] [address] [place] [address] [place] #### LEV #### [facility] , Ketones Auto test strip (U) [Mass/Vol]Ordered By: Luz Fiore on 03-11-2023 Ketones (U) [Mass/Vol] Negative Negative [facility] - UrinalysisOrder ed By: Luz Fiore on 03-11-2023 Hyaline casts LM Ql (Urine sed) 0-8 [LPF] 0-8 [facility] Leukocytes [#/volume] correc manjula for nucleated erythrocytes in Blood by Automated counOrdered By: Luz Fiore on 03-11-2023 WBC corrected for nucl RBC Auto (Bld) [#/Vol] 8.2 10*3/uL 3.8-11.6 [facility] Leukocytes [#/volume] in Blo od by Automated countOrdered By: Luz Fiore on 03-11-2023 WBC (Bld) [#/Vol] 8.2 10*3/uL Normal 3.8-11.6 [facility] Comment on above: Performed By: #### C BC, CMP #### [facility] [address] [place] [address] [place] #### LEV #### [facility] , Levetiracetam (Keppra)on levETIRAcetam [Mass/Vol] 30.8 ug/mL Normal 10.0-40.0 [facility] Comment on above: Result Comment: Perf ormed at: BN - [facility] [address] [id number] Early Morning Babysitter: Sina Hills MD, Phone: [phone] PERFORMED BY: [place] [address] PATHOLOGIST GRAVITY PROSPECTING OBSERVER HELPER JOSE LUZ M.D. Performed By: #### C BC, CMP #### [place] [address] [place] #### LEV #### [facility] , Lymphocytes [#/volume] in Bl ood by Automated countOrdered By: Luz Fiore on 03-11-2023 Lymphocytes (Bld) [#/Vol] 2.0 10*3/uL Normal 1.00-4.8 [facility] Comment on above: Performed By: #### C BC, CMP #### [facility] [address] [place] [address] [place] #### LEV #### [facility] , Lymphocytes/100 leukocytes i n Blood by Automated countOrdered By: Luz Fiore on 03-11-2023 Lymphocytes/100 WBC (Bld) 23.7 % Normal . [facility] Comment on above: Performed By: #### C BC, CMP #### [facility] [address] [place] [address] [place] #### LEV #### [facility] , MCH [Entitic mass] by Automa amnjula countOrdered By: Luz Fiore on 03-11-2023 MCH (RBC) [Entitic mass] 28.7 pg Normal 24.7-34.3 [facility] Comment on above: Performed By: #### C BC, CMP #### [place] [address] [place] #### LEV #### [facility] , MCHC Auto (RBC) [Mass/Vol]Or dered By: Luz Fiore on 03-11-2023 MCHC (RBC) [Mass/Vol] 33.7 g/dL 32.0-35.0 [facility] MCV [Entitic volume] by Auto mated countOrdered By: Luz Fiore on 03-11-2023 MCV (RBC) [Entitic vol] 85.1 fL Normal 80-100 [facility] Comment on above: Performed By: #### C BC, CMP #### [place] [address] [place] #### LEV #### [facility] , Monocyte distribution width [Entitic volume] in Blood by AutomatedOrdered By: Luz Fiore on 03-11-2023 Monocyte distribution width Auto (Bld) [Entitic vol] 17.06 % 0.00-20.00 [facility] Neutrophils [#/volume] in Bl ood by Automated countOrdered By: Luz Fioer on 03-11-2023 Neutrophils (Bld) [#/Vol] 5.7 10*3/uL Normal 1.8-7.7 [facility] Comment on above: Performed By: #### C BC, CMP #### [place] [address] [place] #### LEV #### [facility] , Nitrite Test strip Ql (U)Ord ered By: Luz Fiore on 03-11-2023 Nitrite Ql (U) Negative Negative [facility] No Panel InformationOrdered By: Luz Fiore on 03-11-2023 Levetiracetam (Keppra) Level 30.8 ug/mL 10.0-40.0 [facility] Comment on above: Performed at: - [address] [id number] Director: Sina Hills MD, Phone: [phone] Estimated GFR (CKD-EPI) > 60.0 mL/Min [facility] Creatinine Clearance (Chem 65.12 [facility] Nucleated erythrocytes [Pres ence] in Blood by Automated countOrdered By: Luz Fiore on 03-11-2023 Nucleated RBC Auto Ql (Bld) 0.0 /100{WBC} 0-0.5 [facility] Platelet mean volume [Entiti c volume] in Blood by Automated countOrdered By: Luz Fiore on 03-11-2023 Platelet mean volume (Bld) [Entitic vol] 8.0 fL Normal 6.3-10.7 [facility] Comment on above: Performed By: #### C BC, CMP #### [facility] [address] [place] [address] [place] #### LEV #### [facility] , Platelets [#/volume] in Bloo d by Automated countOrdered By: Luz Fiore on 03-11-2023 Platelets (Bld) [#/Vol] 272 10*3/uL Normal 150-450 [facility] Comment on above: Performed By: #### C BC, CMP #### [facility] [address] [place] [address] [place] #### LEV #### [facility] , Potassium [Moles/volume] in Serum or PlasmaOrdered By: Luz Fiore on 03-11-2023 Potassium [Moles/Vol] 3.6 mmol/L Normal 3.5-5.1 [facility] Comment on above: Performed By: #### C BC, CMP #### [facility] [address] [place] [address] [place] #### LEV #### [facility] , Protein Auto test strip (U) [Mass/Vol]Ordered By: Luz Fiore on 03-11-2023 Protein (U) [Mass/Vol] Negative Negative [facility] Protein [Mass/volume] in Ser um or PlasmaOrdered By: Luz Fiore on 03-11-2023 Protein [Mass/Vol] 7.4 g/dL Normal 6.4-8.9 [facility] Comment on above: Performed By: #### C BC, CMP #### [place] [address] [place] #### LEV #### [facility] , Serum globulin measurement b y calculation (mass/volume)Ordered By: Luz Fiore on 03-11-2023 Globulin (S) [Mass/Vol] 2.9 g/dL Normal [facility] Comment on above: Performed By: #### C BC, CMP #### [facility] [address] [place] [address] [place] #### LEV #### [facility] , Serum or plasma albumin/glob ulin mass ratioOrdered By: Luz Fiore on 03-11-2023 Albumin/Globulin [Mass ratio] 1.6 {ratio} [facility] Comment on above: Performed By: #### C BC, CMP #### [facility] [address] [place] [address] [place] #### LEV #### [facility] , Serum or plasma anion gap de terminationOrdered By: Luz Fiore on 03-11-2023 Anion gap [Moles/Vol] 12.3 mmol/L Normal 6.0-15.0 [facility] Comment on above: Performed By: #### C BC, CMP #### [facility] [address] [place] [address] [place] #### LEV #### [facility] , Sodium [Moles/volume] in Ser um or PlasmaOrdered By: Luz Fiore on 03-11-2023 Sodium [Moles/Vol] 139 mmol/L Normal 136-145 [facility] Comment on above: Performed By: #### C NARCISO, CMP #### [place] [address] [place] #### LEV #### [facility] , Specific gravity Auto test s trip (U) [Rel density]Ordered By: Luz Fiore on 03-11-2023 Specific gravity (U) [Rel density] 1.019 1.001-1.030 [facility] Squamous epithelial cells de tection in urine sediment by light microscopyOrdered By: Luz Fiore on 03-11-2023 Epithelial cells.squamous LM Ql (Urine sed) 1-2 [HPF] 0-2 [facility] Urea nitrogen [Mass/volume] in Serum or PlasmaOrdered By: Luz Fiore on 03-11-2023 Urea nitrogen [Mass/Vol] 10 mg/dL Normal 7-25 [facility] Comment on above: Performed By: #### C NARCISO, CMP #### [place] [address] [place] #### LEV #### [facility] , Urine bacteria detection by automated methodOrdered By: Luz Fiore on 03-11-2023 Bacteria Auto Ql (U) 1+ None Seen [facility] Urine clarity by refractomet ry automatedOrdered By: Luz Fiore on 03-11-2023 Clarity Refractometry automated (U) Clear Clear [facility] Urine glucose measurement by automated test strip (mass/volume)Ordered By: Luz Fiore on 03-11-2023 Glucose Auto test strip (U) [Mass/Vol] Normal mg/dL Normal [facility] Urine hemoglobin detection b y automated test stripOrdered By: Luz Firoe on 03-11-2023 Hemoglobin Auto test strip Ql (U) 1+ Negative [facility] Urine leukocyte esterase det ection by automated test stripOrdered By: Luz Fiore on 03-11-2023 Leukocyte esterase Auto test strip Ql (U) Negative Negative [facility] Urine pH measurement by auto mated test stripOrdered By: Luz Fiore on 03-11-2023 pH (U) 7.0 [pH] Normal 5.0-9.0 [facility] Comment on above: Order Comment: Name Collection Type:: Clean-Voided Midstream Performed By: #### A DDONUAPLUS #### [facility] [address] Urobilinogen Auto test strip (U) [Mass/Vol]Ordered By: Luz Fiore on 03-11-2023 Urobilinogen (U) [Mass/Vol] Normal mg/dL Normal [facility] CBC with Auto Differentialon 02-06-2023 Basophils (Bld) [#/Vol] [facility] Basophils/100 WBC (Bld) 0 % 0 - 2 % [facility] Eosinophils (Bld) [#/Vol] [facility] Eosinophils/100 WBC (Bld) 0 % Low 1 - 4 % [facility] Erythrocyte distribution width (RBC) [Ratio] 12.8 % 11.8 - 14.4 % [facility] Hematocrit (Bld) [Volume fraction] 40.5 % 36.3 - 47.1 % [facility] Hemoglobin (Bld) [Mass/Vol] 13.7 g/dL 11.9 - 15.1 g/dL [facility] Immature granulocytes (Bld) [#/Vol] [facility] Immature granulocytes/100 WBC (Bld) 0 % 0 [facility] Interpretation and review of laboratory results Abnormal [facility] Lymphocytes/100 WBC (Bld) 26 % 25 - 45 % [facility] Lymphocytes/100 WBC (Bld) 2.58 % [facility] MCH (RBC) [Entitic mass] 28.5 pg 25.2 - 33.5 pg [facility] MCHC (RBC) [Mass/Vol] 33.8 g/dL 28.4 - 34.8 g/dL [facility] MCV (RBC) [Entitic vol] 84.2 fL 82.6 - 102.9 fL [facility] Monocytes/100 WBC (Bld) 6 % 2 - 8 % [facility] Monocytes/100 WBC (Bld) 0.64 % [facility] Neutrophils/100 WBC (Bld) 68 % High 34 - 64 % [facility] Nucleated RBC/100 WBC (Bld) [Ratio] 0.0 % 0.0 per 100 WBC [facility] Platelet mean volume (Bld) [Entitic vol] 9.4 fL 8.1 - 13.5 fL [facility] Platelets (Bld) [#/Vol] 364 10*3/uL [facility] RBC (Bld) [#/Vol] 4.81 10*6/uL 3.95 - 5.1 1 m/uL [facility] Segmented neutrophils/100 WBC (Bld) 6.71 % [facility] WBC other (Bld) [#/Vol] 10.0 [facility] CBC with Diffon 02-06-2023 Abs. Basophil <0.03 Normal 0.00-0.20 [facility] Comment on above: Performed By: #### Noemy Santamaria CP, CDP #### [facility] [address] [place] [address] [place] [address] Early Morning Babysitter: Debbie Molina MD Abs. Eosinophil <0.03 Normal 0.00-0.44 [facility] Comment on above: Performed By: #### Noemy Santamaria CP, CDP #### [address] [place] [id number] Early Morning Babysitter: Debbie Molina MD Abs.Imm.Granulocyte <0.03 Normal 0.00-0.30 [facility] Comment on above: Performed By: #### Noemy Santamaria CP, CDP #### [facility] [address] [place] [address] Early Morning Babysitter: Debbie Molina MD Abs.Neutrophil (Seg) 6.71 k/uL Normal 1.50-8.10 [facility] Comment on above: Performed By: #### Noemy Santamaria CP, CDP #### [facility] [address] [place], [place] [id number] Early Morning Babysitter: Debbie Molina MD Basophils/100 WBC (Bld) 0 % Normal 0-2 [facility] Comment on above: Performed By: #### Noemy Santamaria CP, CDP #### [address] [place], [place] [phone] Early Morning Babysitter: Debbie Molina MD Eosinophils/100 WBC (Bld) 0 % Low 1-4 [facility] Comment on above: Performed By: #### Noemy Santamaria CP, CDP #### [address] [place], [facility]83 Early Morning Babysitter: Debbie Molina MD Erythrocyte distribution width (RBC) [Ratio] 12.8 % Normal 11.8-14.4 [facility] Comment on above: Performed By: #### Noemy Santamaria CP, CDP #### [address] [place], [facility]83 Early Morning Babysitter: Debbie Molina MD Hematocrit (Bld) [Volume fraction] 40.5 % Normal 36.3-47.1 [facility] Comment on above: Performed By: #### Noemy Santamaria CP, CDP #### [address] [place], [place] [phone] Early Morning Babysitter: Debbie Molina MD Hemoglobin (Bld) [Mass/Vol] 13.7 g/dL Normal 11.9-15.1 [facility] Comment on above: Performed By: #### Noemy Santamaria CP, CDP #### [address] [place], [place] [phone] Early Morning Babysitter: Debbie Molina MD Immature granulocytes/100 WBC (Bld) 0 % Normal 0 [facility] Comment on above: Performed By: #### Noemy Santamaria CP, CDP #### [address] [place], [place] [phone] Early Morning Babysitter: Debbie Molina MD Lymphocytes (Bld) [#/Vol] 2.58 10*3/uL Normal 1.10-3.70 [facility] Comment on above: Performed By: #### Noemy Santamaria CP, CDP #### [address] [place], [place] [address] Early Morning Babysitter: Debbie Molina MD Lymphocytes/100 WBC (Bld) 26 % Normal 25-45 [facility] Comment on above: Performed By: #### Noemy Santamaria CP, CDP #### [address] [place], [place] [address] Early Morning Babysitter: Debbie Molina MD MCH (RBC) [Entitic mass] 28.5 pg Normal 25.2-33.5 [facility] Comment on above: Performed By: #### Noemy Santamaria CP, CDP #### [address] [place], [facility]67 ( Early Morning Babysitter: Debbie Molina MD MCHC (RBC) [Mass/Vol] 33.8 g/dL Normal 28.4-34.8 [facility] Comment on above: Performed By: #### Noemy Santamaria CP, CDP #### [address] [place], [facility]83 Early Morning Babysitter: Debbie Molina MD MCV (RBC) [Entitic vol] 84.2 fL Normal 82.6-102.9 [facility] Comment on above: Performed By: #### Noemy Santamaria CP, CDP #### [address] [place], [facility]83 Early Morning Babysitter: Debbie Molina MD Monocytes (Bld) [#/Vol] 0.64 10*3/uL Normal 0.10-1.40 [facility] Comment on above: Performed By: #### Noemy Santamaria CP, CDP #### [address] [place], [place] [phone] Early Morning Babysitter: Debbie Molina MD Monocytes/100 WBC (Bld) 6 % Normal 2-8 [facility] Comment on above: Performed By: #### Noemy Santamaria CP, CDP #### [facility] [address] [place], [place] [phone] Early Morning Babysitter: Debbie Molina MD Neutrophil (Seg) 68 % High 34-64 [facility] Comment on above: Performed By: #### Noemy Santamaria CP, CDP #### [facility] [address] [place], [place] [phone] Early Morning Babysitter: Debbie Molina MD NRBC Automated 0.0 per 100 WBC Normal 0.0 [facility] Comment on above: Performed By: #### Noemy Santamaria CP, CDP #### [facility] [address] [place], [place] [phone] Early Morning Babysitter: Debbie Molina MD Platelet mean volume (Bld) [Entitic vol] 9.4 fL Normal 8.1-13.5 [facility] Comment on above: Performed By: #### Noemy Santamaria CP, CDP #### [address] [place], [place] [phone] Early Morning Babysitter: Debbie Molina MD Platelets (Bld) [#/Vol] 364 10*3/uL Normal 138-453 [facility] Comment on above: Performed By: #### Noemy Santamaria CP, CDP #### [address] [place], [place] [phone] Early Morning Babysitter: Debbie Molina MD RBC (Bld) [#/Vol] 4.81 10*6/uL Normal 3.95-5.11 [facility] Comment on above: Performed By: #### Noemy Santamaria CP, CDP #### [facility] [address] [place], [place] [phone] Early Morning Babysitter: Debbie Molina MD WBC (Bld) [#/Vol] 10.0 10*3/uL Normal 4.5-13.5 [facility] Comment on above: Performed By: #### Noemy Santamaria CP, CDP #### [facility] [address] [place] [address] Early Morning Babysitter: Debbie Molina MD [facility] 02-06-2023 Albumin [Mass/Vol] 4.9 g/dL 3.5 - 5.2 g/dL [facility] Albumin/Globulin [Mass ratio] 1.8 {ratio} 1.0 - 2.5 [facility] ALP [Catalytic activity/Vol] 74 U/L 35 - 104 U/L [facility] ALT [Catalytic activity/Vol] 6 U/L 5 - 33 U/L [facility] Anion gap [Moles/Vol] 14 mmol/L 9 - 17 mmol/L [facility] AST [Catalytic activity/Vol] 16 U/L NINF - 32 U/L [facility] Bilirubin [Mass/Vol] 0.4 mg/dL 0.3 - 1 .2 mg/dL [facility] Calcium [Mass/Vol] 9.6 mg/dL 8.6 - 10. 4 mg/dL [facility] Chloride [Moles/Vol] 102 mmol/L 98 - 10 7 mmol/L [facility] CO2 [Moles/Vol] 25 mmol/L 20 - 31 mmol/L [facility] Creatinine [Mass/Vol] 0.7 mg/dL 0.5 - 0.9 mg/dL [facility] [facility] GFR/1.73 sq M.predicted MDRD (S/P/Bld) [Vol rate/Area] - PINF [facility] Comment on above: These results are [...] mg/dL High 70 - 99 mg/dL [facility] Interpretation and review of laboratory results Abnormal [facility] Potassium [Moles/Vol] 4.0 mmol/L 3.7 - 5.3 mmol/L [facility] Protein [Mass/Vol] 7.7 g/dL 6.4 - 8.3 g/dL [facility] Sodium [Moles/Vol] 141 mmol/L 135 - 144 mmol/L [facility] Urea nitrogen [Mass/Vol] 8 mg/dL 6 - 20 mg/dL [facility] Urea nitrogen/Creatinine [Mass ratio] 11 mg/mg 9 - [address] [facility] [address] HEAD WO CONTRASTon 2022 CT [...] Ferdinand Chavarria MD 02/06/23 Final result Normal [facility] CT Head WO Contraston 2022 1. No acute intracra nial abnormality. PN RIS CONSOLIDATED EXAMINATION: CT OF THE HEAD [...] clear. SOFT TISSUES/SKULL: The calvarium is intact. [facility] Ferdinand William MD - 02/06/2023 EXAMINATION: CT [...] IMPRESSION: 1. No acute intracranial abnormality. [facility] Radiology Study observation (narrative) [facility] CT Head WO ContrastOrdered B y: Ferdinand Chavarria on 02-06-2023 [facility] Work Phone: Comp Metabolic Profon 2022 Albumin [Mass/Vol] 4.9 g/dL Normal 3.5-5.2 [facility] Comment on above: Performed By: #### Noemy Santamaria CP, CDP #### [facility] [address] [place] [address] Early Morning Babysitter: Debbie Molina MD Albumin/Glob Ratio 1.8 Normal 1.0-2.5 [facility] Comment on above: Performed By: #### Noemy Santamaria CP, CDP #### [facility] [address] [place] [address] Early Morning Babysitter: Debbie Molina MD Alkaline Phos 74 U/L Normal 35-104 [facility] Comment on above: Performed By: #### M G, CP, CDP #### [facility] [address] [place], [place] [id number] Early Morning Babysitter: Debbie Molina MD ALT [Catalytic activity/Vol] 6 U/L Normal 5-33 [facility] Comment on above: Performed By: #### M Rosalio, CP, CDP #### [facility] [address] [place], [place] [phone] Early Morning Babysitter: Debbie Molina MD Anion gap [Moles/Vol] 14 mmol/L Normal 9-17 [facility] Comment on above: Performed By: #### Noemy Santamaria, CP, CDP #### [facility] [address] [place], [place] [phone] Early Morning Babysitter: Debbie Molina MD AST [Catalytic activity/Vol] 16 U/L Normal <32 [facility] Comment on above: Performed By: #### Noemy Santamaria CP, CDP #### [facility] [address] [place] [address] [place] [place], [place] [phone] Early Morning Babysitter: Debbie Molina MD Bilirubin [Mass/Vol] 0.4 mg/dL Normal 0.3-1.2 [facility] Comment on above: Performed By: #### Noemy Santamaria CP, CDP #### [address] [place], [place] [phone] Early Morning Bab[employer]itter: Debbie Molina MD BUN/CRE Ratio 11 Normal 9-20 [facility] Comment on above: Performed By: #### Noemy Santamaria, CP, CDP #### [facility] [address] [place], [place] [phone] Early Morning Babysitter: Debbie Molina MD Calcium [Mass/Vol] 9.6 mg/dL Normal 8.6-10.4 [facility] Comment on above: Performed By: #### M Rosalio, CP, CDP #### [facility] [address] [place], [place] [phone] Early Morning Bab[employer]itter: Debbie Molina MD Chloride [Moles/Vol] 102 mmol/L Normal 98-107 [facility] Comment on above: Performed By: #### M ELAN Santamaria, CDP #### [facility] [address] [place] [address] Early Morning Babysitter: Debbie Molina MD CO2 [Moles/Vol] 25 mmol/L Normal 20-31 [facility] Comment on above: Performed By: #### Noemy Santamaria CP, CDP #### [facility] [address] [place], [place] [phone] Early Morning Babysitter: Debbie oMlina MD Creatinine [Mass/Vol] 0.7 mg/dL Normal 0.5-0.9 [facility] Comment on above: Performed By: #### M ELAN Santamaria, CDP #### [facility] [address] [place], [place] [address] Early Morning Babysitter: Debbie Molina MD GFR/1.73 sq M.predicted among non-blacks MDRD (S/P/Bld) [Vol rate/Area] mL/min/{1.73_m2} Normal >60 [facility] Comment on above: Result Comment: These results [...] By: #### M ELAN Santamaria, CDP #### [facility] [address] [place] [address] Early Morning Babysitter: Debbie Molina MD Glucose [Mass/Vol] 111 mg/dL High 70-99 [facility] Comment on above: Performed By: #### M ELAN Santamaria, CDP #### [facility] [address] [place] [address] Early Morning Babysitter: Debbie Molina MD Potassium [Moles/Vol] 4.0 mmol/L Normal 3.7-5.3 [facility] Comment on above: Performed By: #### Noemy Santamaria CP, CDP #### [facility] [address] [place] [address] Dr. [place], [place] [phone] Early Morning Babysitter: Debbie Molina MD Protein [Mass/Vol] 7.7 g/dL Normal 6.4-8.3 [facility] Comment on above: Performed By: #### Noemy Santamaria CP, CDP #### [facility] [address] [place], [place] [phone] Early Morning Babysitter: Debbie Molina MD Sodium [Moles/Vol] 141 mmol/L Normal 135-144 [facility] Comment on above: Performed By: #### Noemy Santamaria CP, CDP #### [address] [place], [place] [phone] Early Morning Babysitter: Debbie Molina MD Urea nitrogen [Mass/Vol] 8 mg/dL Normal 6-20 [facility] Comment on above: Performed By: #### Noemy Santamaria CP, CDP #### [address] [place], [place] [phone] Early Morning Babysitter: Debbie Molina MD Lactic Acidon 02-06-2023 Lactate [Moles/Vol] 2.5 mmol/L High 0.5-2.2 [facility] Comment on above: Performed By: #### L ACTIC #### [facility] [address] [place] [address] [place] [place], [place] [phone] Early Morning Babysitter: Debbie Molina MD Interpretation and review of laboratory results Abnormal [facility] Lactate (BldV) [Moles/Vol] 2.5 mmol/L High 0.5 - 2.2 mmol/L [facility] Magnesiumon 02-06-2023 Magnesium [Mass/Vol] 2.0 mg/dL Normal 1.6-2.6 [facility] Comment on above: Performed By: #### Noemy Santamaria CP, CDP #### [facility] [address] [place] [address] Early Morning Babysitter: Debbie Molina MD Magnesium [Mass/Vol] 2.0 mg/dL 1.6 - 2 .6 mg/dL [facility] No Panel Informationon 02-06 [facility] 29on 02-01-2023 29 Addended by: CRISELDA CLAUDIO on: 02/02/2023 08:34 AM Modules accepted: Orders Normal [facility] Office Visiton 02-01-2023 Follow-up visit [id number] Juan Jose Kovacs 2000 F Date Provider Department Center 02/01/2023 Leisa-SWAPNA DAMON [facility] Patrick . No family history on file Level of Service:34748 LA OFFICE/OUTPATIENT ESTABLISHED MOD MDM 30-39 MIN Normal [facility] CT HEAD WO CONon 09-24-2022 CT [...] NAHUN SAMUELS Date: 2022-09-23 23:01 Normal [facility] ER URINE PROFILEon 3 Bilirubin Ql (U) Negative Normal NEGATIVE [facility] Comment on above: Performed By: #### C MP, HSTROPN #### [facility] [address] [place] [address] Dr. Jovanni Maya Clarity (U) CLEAR Normal CLEAR [facility] Comment on above: Performed By: #### C MP, HSTROPN #### [facility] [address] [place] [address] Dr. Jovanni Maya Color (U) YELLOW Normal YELLOW [facility] Comment on above: Performed By: #### C MP, HSTROPN #### [facility] [address] [place] [address] Dr. Jovanni ANTOINE A micrscopic examina tion will be performed if indicated. Normal [facility] Comment on above: Performed By: #### C MP, HSTROPN #### [facility] [address] [place] [address] Dr. Jovanni Maya Glucose Ql (U) Negative Normal NEGATIVE [facility] Comment on above: Performed By: #### C MP, HSTROPN #### [facility] [address] [place] [address] Dr. Jovanni Maya Hemoglobin Ql (U) Negative Normal NEGATIVE [facility] Comment on above: Performed By: #### C MP, HSTROPN #### [facility] [address] [place] [address] Dr. Jovanni Maya Ketones Ql (U) 40 mg/dl Abnormal NEGATIVE [facility] Comment on above: Performed By: #### C MP, HSTROPN #### [facility] [address] [place] [address] Dr. Jovanni Maya LEUKOCYTES Negative Normal NEGATIVE [facility] Comment on above: Performed By: #### C MP, HSTROPN #### [facility] [address] [place] [address] Dr. Jovanni Maya Nitrite Ql (U) Negative Normal NEGATIVE [facility] Comment on above: Performed By: #### C MP, HSTROPN #### [facility] [address] [place] [address] Dr. Jovanni Maya pH (U) 7.0 [pH] Normal 5-9 [facility] Comment on above: Performed By: #### C MP, HSTROPN #### [facility] [address] [address] [address] Jovanni Maya SPEC GRAVITY 1.015 Normal 1.005-<=1.[address] [place] [address] Comment on above: Performed By: #### C MP, HSTROPN #### [facility] [address] [place] [address] Dr. Jovanni Maya UA PROTEIN Negative Normal NEGATIVE/ TRACE [facility] Comment on above: Performed By: #### C MP, HSTROPN #### [facility] [address] [place] [address] Dr. Jovanni Maya UR MICRO IND NOT INDICATED Normal [facility] Comment on above: Performed By: #### C DANIEL, HSTROPN #### [facility] [address] [place] [address] Dr. Jovanni Maya Urobilinogen Qn (U) 0.2 {Carlos A'U}/dL Normal 0.2 - 1. [address] [facility] Comment on above: Performed By: #### C DANIEL, HSTROPN #### [facility] [address] [place] [address] Dr. Jovanni Maya LACTATE/LACTIC ACIDon 2022 Lactate [Moles/Vol] 0.6 mmol/L Normal 0.4-2.0 [facility] Comment on above: Performed By: #### P REG, ACETON #### [facility] [address] [place] [address] Dr. Jovanni Maya POINT OF CARE GLUCOSEon 08-27 Glucose [Mass/Vol] 123 mg/dL Critically high 74-106 [facility] Comment on above: Performed By: #### P OCGLUC #### [facility] [address] [place] [address] Dr. Jovanni Maya XR CHEST 1 Von [...] DEBBIE BRITT Date: 2022-09-23 22:21 Normal [facility] ACETONE SERUMon 09-23-2022 ACETONE Negative Normal NEGATIVE [facility] Comment on above: Performed By: #### P REG, ACETON #### [facility] [address] [place] [address] Dr. Jovanni Maya CBC AUTO DIFFon 09-23-2022 BASO # 0.0 103/ul Normal 0.0-0.1 [facility] Comment on above: Performed By: #### C BC #### [facility] [address] [place] [address] Dr. Jovanni Maya Basophils/100 WBC (Bld) 0.3 % Normal 0.2-2.[address] [facility] Comment on above: Performed By: #### C BC #### [facility] [address] [place] [address] Dr. Jovanni Maya EO # 0.0 103/ul Normal 0.0-0.[address] [facility] Comment on above: Performed By: #### C BC #### [facility] [address] [place] [address] Dr. Jovanni Maya Eosinophils/100 WBC (Bld) 0.1 % Critically low 0.9-7.[address] [facility] Comment on above: Performed By: #### C BC #### [facility] [address] [place] [address] Dr. Jovanni Maya Erythrocyte distribution width (RBC) [Ratio] 12.4 % Normal 11.0-15.0 [facility] Comment on above: Performed By: #### C BC #### [facility] [address] [place] [address] Dr. Jovanni Maya Hematocrit (Bld) [Volume fraction] 39.6 % Normal 36.0-48.[address] [facility] Comment on above: Performed By: #### C BC #### [facility] [address] [place] [address] Dr. Jovanni Maya Hemoglobin (Bld) [Mass/Vol] 13.7 g/dL Normal 12.0-16.[address] [facility] Comment on above: Performed By: #### C BC #### [facility] [address] [place] [address] Dr. Jovanni Maya IG # 0.02 10e3/ul Normal 0.00-0.[address] [facility] Comment on above: Performed By: #### C BC #### [facility] [address] [place] [address] Dr. Jovanni Maya IG % 0.2 % Normal 0.0-0.[address] [facility] Comment on above: Performed By: #### C BC #### [facility] [address] [place] [address] Dr. Jovanni Maya LYMPH # 2.2 103/ul Normal 1.2-3.[address] [facility] Comment on above: Performed By: #### C BC #### [facility] [address] [place] [address] Dr. Jovanni Maya Lymphocytes/100 WBC (Bld) 24.8 % Normal 20.5-60.[address] [facility] Comment on above: Performed By: #### C BC #### [facility] [address] [place] [address] Dr. Jovanni Maya MANUAL DIFF REQ NO Normal [facility] Comment on above: Performed By: #### C BC #### [facility] [address] [place] [address] Dr. Jovanni Maya MCH (RBC) [Entitic mass] 29.7 pg Normal 26.7-34.[address] [facility] Comment on above: Performed By: #### C BC #### [facility] [address] [place] [address] Dr. Jovanni Maya MCHC (RBC) [Mass/Vol] 34.6 g/dL Normal 29.9-35.[address] [facility] Comment on above: Performed By: #### C BC #### [facility] [address] [place] [address] Dr. Jovanni Maya MCV (RBC) [Entitic vol] 85.7 fL Normal 81.0-99.0 [facility] Comment on above: Performed By: #### C BC #### [facility] [address] [address] [address] Jovanni Maya MONO # 0.7 103/ul Normal 0.3-0.8 [facility] Comment on above: Performed By: #### C BC #### [facility] [address] [address] [address] Jovanni Maya Monocytes/100 WBC (Bld) 7.6 % Normal 1.7-12.[address] [facility] Comment on above: Performed By: #### C BC #### [facility] [address] [place] [address] Dr. Jovanni Maya NEUT # 5.9 103/ul Normal 1.4-6.[address] [facility] Comment on above: Performed By: #### C BC #### [facility] [address] [place] [address] Dr. Jovanni Maya Neutrophils/100 WBC (Bld) 67.0 % Normal 43.0-75.[address] [facility] Comment on above: Performed By: #### C BC #### [facility] [address] [place] [address] Dr. Jovanni Maya Platelet mean volume (Bld) [Entitic vol] 9.3 fL Critically low 9.5-13.[address] [facility] Comment on above: Performed By: #### C BC #### [facility] [address] [place] [address] Dr. Jovanni Maya PLT 259 103/ul Normal 150-450 [facility] Comment on above: Performed By: #### C BC #### [facility] [address] [place] [address] Dr. Jovanni Maya RBC 4.62 106/ul Normal 4.20-5.40 [facility] Comment on above: Performed By: #### C BC #### [facility] [address] [place] [address] Dr. Jovanni Maya WBC 8.8 103/ul Normal 4.0-11.0 [facility] Comment on above: Performed By: #### C BC #### [facility] [address] [place] [address] Dr. Jovanni Maya D-DIMERon 09-23-2022 D-DIMER 0.19 mg/L FEU Normal <=0.59 [facility] Comment on above: Performed By: #### C DANIEL, HSTROPN #### [facility] [address] [place] [address] Dr. Jovanni Maya D-DIMER COMMENTS SEE BELOW Normal [facility] Comment on above: Result Comment: Incr eases [...] Performed By: #### C DANIEL, HSTROPN #### [facility] [address] [place] [address] Dr. Jovanni Maya GROUP A STREP CULTUREon 08-27 S. pyogenes Ag Ql (Unsp spec) Culture Observations: NEGATIVE FOR GROUP A STREPTOCOCCUS. Normal [facility] Comment on above: Performed By: #### C DANIEL, HSTROPN #### [facility] [address] [place] [address] Dr. Jovanni Maya INFLUENZA A AND B AGon 09-23 INFLUENZA A AG Negative Normal NEGATIVE SEE COMMENT [facility] Comment on above: Performed By: #### I NFLUAB #### [facility] [address] [place] [address] Dr. Jovanni Maya INFLUENZA B AG Negative Normal NEGATIVE SEE COMMENT [facility] Comment on above: Performed By: #### I NFLUAB #### [facility] [address] [place] [address] Dr. Jovanni Maya LACTATE/LACTIC ACIDon 2022 Lactate [Moles/Vol] 3.2 mmol/L Critically high 0.4-2.[address] [facility] Comment on above: Performed By: #### L ACT #### [facility] [address] [address] [address] Jovanni Maya PREG HCG QUALon 09-23-2022 , QUAL Negative Normal NEGATIVE [facility] Comment on above: Performed By: #### P REG, ACETON #### [facility] [address] [place] [address] Dr. Jovanni Maya PROF 14(COMP METB)on 023 Albumin [Mass/Vol] 4.6 g/dL Normal 3.4-5.0 [facility] Comment on above: Performed By: #### C MP, HSTROPN #### [facility] [address] [place] [address] Dr. Jovanni Maya Albumin/Globulin [Mass ratio] 1.5 {ratio} Normal [facility] Comment on above: Performed By: #### C MP, HSTROPN #### [facility] [address] [place] [address] Dr. Jovanni Maya ALP [Catalytic activity/Vol] 59 U/L Normal 46-[address] [facility] Comment on above: Performed By: #### C MP, HSTROPN #### [facility] [address] [place] [address] Dr. Jovanni Maya ALT [Catalytic activity/Vol] 11 U/L Critically low 14-[address] [facility] Comment on above: Performed By: #### C MP, HSTROPN #### [facility] [address] [address] [address] Jovanni Maya Anion gap [Moles/Vol] 15.3 mmol/L Normal [facility] Comment on above: Performed By: #### C MP, HSTROPN #### [facility] [address] [place] [address] Dr. Jovanni Maya AST [Catalytic activity/Vol] 10 U/L Critically low 15-[address] [facility] Comment on above: Performed By: #### C MP, HSTROPN #### [facility] [address] [place] [address] Dr. Jovanni Maya Bilirubin [Mass/Vol] 0.8 mg/dL Normal 0.2-1.[address] [facility] Comment on above: Performed By: #### C DANIEL, HSTROPN #### [facility] [address] [address] [address] Jovanni Maya Calcium [Mass/Vol] 9.2 mg/dL Normal 8.5-10.1 [facility] Comment on above: Performed By: #### C DANIEL, HSTROPN #### [facility] [address] [address] [address] Jovanni Maya Chloride [Moles/Vol] 105 mmol/L Normal 98-107 [facility] Comment on above: Performed By: #### C DANIEL, HSTROPN #### [facility] [address] [place] [address] Dr. Jovanni Maya CO2 [Moles/Vol] 24.4 mmol/L Normal 21.0-32.0 [facility] Comment on above: Performed By: #### C DANIEL, HSTROPN #### [facility] [address] [place] [address] Dr. Jovanni Maya Creatinine [Mass/Vol] 0.99 mg/dL Normal 0.55-1.[address] [facility] Comment on above: Performed By: #### C DANIEL, HSTROPN #### [facility] [address] [place] [address] Dr. Jovanni Maya EGFR-AF HAITIAN >60 Normal >=60 [facility] Comment on above: Performed By: #### C DANIEL, HSTROPN #### [facility] [address] [place] [address] Dr. Jovanni Maya EGFR-NON AF HAITIAN >60 Normal >=[address] [facility] Comment on above: Performed By: #### C DANIEL, HSTROPN #### [facility] [address] [place] [address] Dr. Jovanni Maya Globulin (S) [Mass/Vol] 3.1 g/dL Normal [facility] Comment on above: Performed By: #### C DANIEL, HSTROPN #### [facility] [address] [address] [address] Jovanni Maya Glucose [Mass/Vol] 113 mg/dL Critically high 74-106 [facility] Comment on above: Performed By: #### C MP, HSTROPN #### [facility] [address] [place] [address] Dr. Jovanni Maya Potassium [Moles/Vol] 3.7 mmol/L Normal 3.5-5.[address] [facility] Comment on above: Performed By: #### C MP, HSTROPN #### [facility] [address] [place] [address] Dr. Jovanni Maya Protein [Mass/Vol] 7.7 g/dL Normal 6.4-8.2 [facility] Comment on above: Performed By: #### C MP, HSTROPN #### [facility] [address] [place] [address] Dr. Jovanni Maya Sodium [Moles/Vol] 141 mmol/L Normal 136-145 [facility] Comment on above: Performed By: #### C MP, HSTROPN #### [facility] [address] [place] [address] Dr. Jovanni Maya Urea nitrogen [Mass/Vol] 10.0 mg/dL Normal 7.0-18.[address] [facility] Comment on above: Performed By: #### C MP, HSTROPN #### [facility] [address] [place] [address] Dr. Jovanni Maya Urea nitrogen/Creatinine [Mass ratio] 10.1 mg/mg Normal [facility] Comment on above: Performed By: #### C MP, HSTROPN #### [facility] [address] [place] [address] Dr. Jovanni Maya STREPT SCREENon 09-23-2022 STREP SCREEN A Negative Normal NEGATIVE [facility] Comment on above: Performed By: #### C MP, HSTROPN #### [facility] [address] [place] [address] Dr. Jovanni Maya TROPONIN, HIGH SENSITIVITYon 09-23-2022 HSTROP <4.0 Normal 4.0-51.3 [facility] Comment on above: Result Comment: CUT- OFF POINTS HAVE BEEN ESTABLISHED BASED ON THE FOURTH UNIVERSAL DEFINITIONS OF MYOCARDIAL INFARCTION. THE UPPER REFERENCE LIMIT (URL) OF TROPONIN, DEFINED THE 99TH PERCENTILE OF cTnI DISTRIBUTION IN A REFERENCE POPULATION, HAS BEEN CONFIRMED THE DECISION THRESHOLD FOR [place] DIAGNOSIS. Performed By: #### C MP, HSTROPN #### [facility] [address] [address] [address] Jovanni Maya Alanine aminotransferase [En zymatic activity/volume] in Serum or PlasmaOrdered By: Federica Bullimore on 09-13-2022 ALT [Catalytic activity/Vol] 5 U/L 7-52 [facility] Albumin [Mass/volume] in Ser um or Plasma by Bromocresol green (BCG) dye binding methoOrdered By: Federica Bullimore on 09-13-2022 Albumin BCG dye [Mass/Vol] 4.3 g/dL 3.5-5.7 [facility] Alkaline phosphatase [Enzyma tic activity/volume] in Serum or PlasmaOrdered By: [facility] Bullimore on 09-13-2022 ALP [Catalytic activity/Vol] 45 U/L 34-104 [facility] Aspartate aminotransferase [ Enzymatic activity/volume] in Serum or PlasmaOrdered By: [facility] Bullimore on 09-13-2022 AST [Catalytic activity/Vol] 12 U/L 13-39 [facility] Basophils Auto (Bld) [#/Vol] Ordered By: [facility] Bull[facility] on 09-13-2022 Basophils (Bld) [#/Vol] 0.0 10*3/uL 0.0-0.2 [facility] Basophils/100 WBC Auto (Bld) Ordered By: [facility] on 09-13-2022 Basophils/100 WBC (Bld) 0.7 % . [facility] Bilirubin.total [Mass/volume ] in Serum or PlasmaOrdered By: [facility] on 09-13-2022 Bilirubin [Mass/Vol] 0.5 mg/dL 0.3-1.0 [facility] Calcium [Mass/volume] in Ser um or PlasmaOrdered By: Federica Bullimore on 09-13-2022 Calcium [Mass/Vol] 9.1 mg/dL 8.6-10.3 [facility] Carbon dioxide, total [Moles /volume] in Serum or PlasmaOrdered By: Federica Wolfe on 09-13-2022 CO2 [Moles/Vol] 30.0 mmol/L 21.0-31.0 [facility] Chloride [Moles/volume] in S alexis or PlasmaOrdered By: Federica Wolfe on 09-13-2022 Chloride [Moles/Vol] 105 mmol/L 98-107 [facility] Creatinine [Mass/volume] in Serum or PlasmaOrdered By: Federicagiovanni Alexanderore on 09-13-2022 Creatinine [Mass/Vol] 0.91 mg/dL 0.60-1.20 [facility] Eosinophils Auto (Bld) [#/Vo l]Or[facility]: [facility] Eosinophils (Bld) [#/Vol] 0.0 10*3/uL 0.0-0.45 [facility] Eosinophils/100 WBC Auto (Bl d)Ordered By: [facility] Benjaminore on 09-13-2022 Eosinophils/100 WBC (Bld) 0.5 % . [facility] Erythrocyte distribution wid th Auto (RBC) [Ratio]Or[facility] By: [facility] 09-13-[facility]22 Erythrocyte distribution width (RBC) [Ratio] 13.3 % 11.9-15.3 [facility] Globulin Calc (S) [Mass/Vol] Ordered By: Federicagiovanni Wolfe on 09-13-2022 Globulin (S) [Mass/Vol] 2.7 g/dL [facility] Glucose [Mass/volume] in Ser um or PlasmaOrdered By: Federicagiovanni Wolfe on 09-13-2022 Glucose [Mass/Vol] 89 mg/dL 74-109 [facility] Comment on above: ADA recommended refe rence rangeRandom Glucose Reference Range is dependent on time and content of last meal. Glucose of more than 200 mg/dL in a nonstressed, ambulatory subject supports the diagnosis of Diabetes Mellitus. Hematocrit Auto (Bld) [Volum e fraction]Ordered By: Federica Wolfe on 09-13-2022 Hematocrit (Bld) [Volume fraction] 37.5 % 34.0-46.4 [facility] Hemoglobin [Mass/volume] in BloodOrdered By: Federica Giordanoimore on 09-13-2022 Hemoglobin (Bld) [Mass/Vol] 12.7 g/dL 11.8-15.4 [facility] Laboratory - Chemistry and C hemistry - challengeOrdered By: Federica Pasqualeimore on 09-13-2022 GFR/1.73 sq M.predicted MDRD (S/P/Bld) [Vol rate/Area] mL/min/{1.73_m2} [facility] Leukocytes [#/volume] correc manjula for nucleated erythrocytes in Blood by Automated counOrdered By: Federica Giordanoimore on 09-13-2022 WBC corrected for nucl RBC Auto (Bld) [#/Vol] 5.9 10*3/uL 3.8-11.6 [facility] Lymphocytes Auto (Bld) [#/Vo l]Ordered By: Federica Bullimore on 09-13-2022 Lymphocytes (Bld) [#/Vol] 2.1 10*3/uL 1.00-4.8 [facility] Lymphocytes/100 WBC Auto (Bl d)Ordered By: Federica Bullimore on 09-13-2022 Lymphocytes/100 WBC (Bld) 36.0 % . [facility] MCH Auto (RBC) [Entitic mass ]Ordered By: Federica Bullimore on 09-13-2022 MCH (RBC) [Entitic mass] 29.7 pg 24.7-34.3 [facility] MCHC Auto (RBC) [Mass/Vol]Or dered By: Federica Bullimore on 09-13-2022 MCHC (RBC) [Mass/Vol] 33.8 g/dL 32.0-35.0 [facility] MCV Auto (RBC) [Entitic vol] Ordered By: Federica Bullimore on 09-13-2022 MCV (RBC) [Entitic vol] 88.0 fL 80-100 [facility] Monocyte distribution width [Entitic volume] in Blood by AutomatedOrdered By: Federica Bullimore on 09-13-2022 Monocyte distribution width Auto (Bld) [Entitic vol] 17.84 % 0.00-20.00 [facility] Monocytes Auto (Bld) [#/Vol] Ordered By: Federica Bullimore on 09-13-2022 Monocytes (Bld) [#/Vol] 0.4 10*3/uL 0.0-0.8 [facility] Monocytes/100 WBC Auto (Bld) Ordered By: Federica Bullimore on 09-13-2022 Monocytes/100 WBC (Bld) 7.0 % . [facility] Neutrophils Auto (Bld) [#/Vo l]Ordered By: Federica Bullimore on 09-13-2022 Neutrophils (Bld) [#/Vol] 3.3 10*3/uL 1.8-7.7 [facility] Neutrophils/100 WBC Auto (Bl d)Ordered By: Federica Bullimore on 09-13-2022 Neutrophils/100 WBC (Bld) 55.8 % . [facility] No Panel InformationOrdered By: Federica Giordanoimore on 09-13-2022 Pharmacy Creatinine Clearance (Chem 72.40 [facility] Nucleated erythrocytes [Pres ence] in Blood by Automated countOrdered By: Federica Giordanoimore on 09-13-2022 Nucleated RBC Auto Ql (Bld) 0.1 /100{WBC} 0-0.5 [facility] Platelet mean volume Auto (B ld) [Entitic vol]Ordered By: Federica Bullimore on 09-13-2022 Platelet mean volume (Bld) [Entitic vol] 8.0 fL 6.3-10.7 [facility] Platelets Auto (Bld) [#/Vol] Ordered By: Federica Bullimore on 09-13-2022 Platelets (Bld) [#/Vol] 245 10*3/uL 150-450 [facility] Potassium [Moles/volume] in Serum or PlasmaOrdered By: Federica Bullimore on 09-13-2022 Potassium [Moles/Vol] 3.7 mmol/L 3.5-5.1 [facility] Protein [Mass/volume] in Ser um or PlasmaOrdered By: Federica Bullimore on 09-13-2022 Protein [Mass/Vol] 7.0 g/dL 6.4-8.9 [facility] RBC Auto (Bld) [#/Vol]Ordere d By: Federica Bullimore on 09-13-2022 RBC (Bld) [#/Vol] 4.27 10*6/uL 3.60-5.00 [facility] Serum or plasma albumin/glob ulin mass ratioOrdered By: Federica Bullimore on 09-13-2022 Albumin/Globulin [Mass ratio] 1.6 {ratio} [facility] Serum or plasma anion gap de terminationOrdered By: Federica Bullimore on 09-13-2022 Anion gap [Moles/Vol] 8.7 mmol/L 6.0-15.0 [facility] Sodium [Moles/volume] in Ser um or PlasmaOrdered By: Federica Bullimore on 09-13-2022 Sodium [Moles/Vol] 140 mmol/L 136-145 [facility] Urea nitrogen [Mass/volume] in Serum or PlasmaOrdered By: Federica Bullimore on 09-13-2022 Urea nitrogen [Mass/Vol] 8 mg/dL 7-25 [facility] WBC Auto (Bld) [#/Vol]Ordere d By: Federica Bullimore on 09-13-2022 WBC (Bld) [#/Vol] 5.9 10*3/uL 3.8-11.6 [facility] Automated erythrocytes count in urine sediment (number/area)Ordered By: Shanelle Bowen on 08-30-2022 RBC Auto (Urine sed) [#/Area] 5-9 [HPF] 0-4 [facility] Automated leukocytes count i n urine sediment (number/area)Ordered By: Shanelle Bowen on 08-30-2022 WBC Auto (Urine sed) [#/Area] 5-9 [HPF] 0-4 [facility] Basophils Auto (Bld) [#/Vol] Ordered By: Shanelle Bowen on 08-30-2022 Basophils (Bld) [#/Vol] 0.0 10*3/uL 0.0-0.2 [facility] Basophils/100 WBC Auto (Bld) Ordered By: Shanelle Bowen on 08-30-2022 Basophils/100 WBC (Bld) 0.5 % . [facility] Bilirubin Test strip Ql (U)O rdered By: Shanelle Bowen on 08-30-2022 Bilirubin Ql (U) Negative Negative [facility] Calcium [Mass/volume] in Ser um or PlasmaOrdered By: Shanelle Bowen on 08-30-2022 Calcium [Mass/Vol] 9.4 mg/dL 8.2-10.2 [facility] Carbon dioxide, total [Moles /volume] in Serum or PlasmaOrdered By: Shanelle Bowen on 08-30-2022 CO2 [Moles/Vol] 21.7 mmol/L 22.0-30.0 [facility] Chloride [Moles/volume] in S alexis or PlasmaOrdered By: Shanelle Bowen on 08-30-2022 Chloride [Moles/Vol] 102 mmol/L 95-114 [facility] Color Auto (U)Ordered By: Brian Bowen on 08-30-2022 Color (U) Yellow Yellow [facility] Creatinine and Glomerular fi ltration rate.predicted panel (S/P/Bld)Ordered By: Shanelle Bowen on 08-30-2022 Creatinine [Mass/Vol] 0.99 mg/dL 0.44-1.03 [facility] Eosinophils Auto (Bld) [#/Vo l]Ordered By: Shanelle Bowen on 08-30-2022 Eosinophils (Bld) [#/Vol] 0.1 10*3/uL 0.0-0.45 [facility] Eosinophils/100 WBC Auto (Bl d)Ordered By: Shanelle Bowen on 08-30-2022 Eosinophils/100 WBC (Bld) 1.2 % . [facility] Erythrocyte distribution wid th Auto (RBC) [Ratio]Ordered By: Shanelle Bowen on 08-30-2022 Erythrocyte distribution width (RBC) [Ratio] 13.9 % 11.9-15.3 [facility] Estimated glomerular filtrat ion rate (GFR) non- AmericanOrdered By: Shanelle Bowen on 08-30-2022 GFR/1.73 sq M.predicted among non-blacks MDRD (S/P/Bld) [Vol rate/Area] > 60 mL/Min [facility] Glucose [Mass/volume] in Ser um or PlasmaOrdered By: Shanelle Bowen on 08-30-2022 Glucose [Mass/Vol] 101 mg/dL 70-100 [facility] Comment on above: ADA recommended refe rence rangeRandom Glucose Reference Range is dependent on time and content of last meal. Glucose of more than 200 mg/dL in a nonstressed, ambulatory subject supports the diagnosis of Diabetes Mellitus. Hematocrit Auto (Bld) [Volum e fraction]Ordered By: Shanelle Bowen on 08-30-2022 Hematocrit (Bld) [Volume fraction] 43.8 % 34.0-46.4 [facility] Hemoglobin [Mass/volume] in BloodOrdered By: Shanelle Bowen on 08-30-2022 Hemoglobin (Bld) [Mass/Vol] 14.6 g/dL 11.8-15.4 [facility] Ketones Auto test strip (U) [Mass/Vol]Ordered By: Shanelle Bowen on 08-30-2022 Ketones (U) [Mass/Vol] Trace Negative [facility] - Chemistry and C hemistry - challengeOrdered By: Shanelle Bowen on 08-30-2022 Magnesium [Mass/Vol] 2.2 mg/dL 1.6-2.6 [facility] Laboratory - UrinalysisOrder ed By: Shanelle Bowen on 08-30-2022 Hyaline casts LM Ql (Urine sed) 0-8 [LPF] 0-8 [facility] Leukocytes [#/volume] correc manjula for nucleated erythrocytes in Blood by Automated counOrdered By: Shanelle Bowen on 08-30-2022 WBC corrected for nucl RBC Auto (Bld) [#/Vol] 10.5 10*3/uL 3.8-11.6 [facility] Lymphocytes Auto (Bld) [#/Vo l]Ordered By: Shanelle Bowen on 08-30-2022 Lymphocytes (Bld) [#/Vol] 3.9 10*3/uL 1.00-4.8 [facility] Lymphocytes/100 WBC Auto (Bl d)Ordered By: Shanelle Bowen on 08-30-2022 Lymphocytes/100 WBC (Bld) 36.9 % . [facility] MCH Auto (RBC) [Entitic mass ]Ordered By: Shanelle Bowen on 08-30-2022 MCH (RBC) [Entitic mass] 29.5 pg 24.7-34.3 [facility] MCHC Auto (RBC) [Mass/Vol]Or dered By: Shanelle Bowen on 08-30-2022 MCHC (RBC) [Mass/Vol] 33.3 g/dL 32.0-35.0 [facility] MCV Auto (RBC) [Entitic vol] Ordered By: Shanelle Bowen on 08-30-2022 MCV (RBC) [Entitic vol] 88.7 fL 80-100 [facility] Monocyte distribution width [Entitic volume] in Blood by AutomatedOrdered By: Shanelle oBwen on 08-30-2022 Monocyte distribution width Auto (Bld) [Entitic vol] 19.23 % 0.00-20.00 [facility] Monocytes Auto (Bld) [#/Vol] Ordered By: Shanelle Bowen on 08-30-2022 Monocytes (Bld) [#/Vol] 0.6 10*3/uL 0.0-0.8 [facility] Monocytes/100 WBC Auto (Bld) Ordered By: Shanelle Bowen on 08-30-2022 Monocytes/100 WBC (Bld) 5.6 % . [facility] Neutrophils Auto (Bld) [#/Vo l]Ordered By: Shanelle Bowen on 08-30-2022 Neutrophils (Bld) [#/Vol] 5.9 10*3/uL 1.8-7.7 [facility] Neutrophils/100 WBC Auto (Bl d)Ordered By: Shanelle Bowen on 08-30-2022 Neutrophils/100 WBC (Bld) 55.8 % . [facility] Nitrite Test strip Ql (U)Ord ered By: Shanelle Bowen on 08-30-2022 Nitrite Ql (U) Negative Negative [facility] No Panel InformationOrdered By: Shanelle Bowen on 08-30-2022 Lamotrigine (Lamictal) Level 4.2 ug/mL 2.0-20.0 [facility] Comment on above: Detection Limit = 1. 0Performed at: [facility] - [facility] [address] [id number] Director: Sina Hills MD, Phone: [phone] Levetiracetam (Keppra) Level 41.6 ug/mL 10.0-40.0 [facility] Comment on above: Performed at: [facility] [address] [id number] Director: Sina Hills MD, Phone: [phone] Estimated GFR () > 60 mL/Min [facility] Comment on above: GFR estimated refere nce range: According to KDOQI guidelines, <60 ml/min/1.73m2 is sufficient to diagnose a patient with chronic kidney disease. Pharmacy Creatinine Clearance (Chem 67.83 [facility] Nucleated erythrocytes [Pres ence] in Blood by Automated countOrdered By: Shanelle Bowen on 08-30-2022 Nucleated RBC Auto Ql (Bld) 0.1 /100{WBC} 0-0.5 [facility] Platelet mean volume Auto (B ld) [Entitic vol]Ordered By: Shanelle Bowen on 08-30-2022 Platelet mean volume (Bld) [Entitic vol] 8.4 fL 6.3-10.7 [facility] Platelets Auto (Bld) [#/Vol] Ordered By: Shanelle Bowen on 08-30-2022 Platelets (Bld) [#/Vol] 288 10*3/uL 150-450 [facility] Potassium [Moles/volume] in Serum or PlasmaOrdered By: Shanelle Bowen on 08-30-2022 Potassium [Moles/Vol] 3.4 mmol/L 3.5-5.1 [facility] Protein Auto test strip (U) [Mass/Vol]Ordered By: Shanelle Bowen on 08-30-2022 Protein (U) [Mass/Vol] Trace mg/dL Negative [facility] RBC Auto (Bld) [#/Vol]Ordere d By: Shanelle Bowen on 08-30-2022 RBC (Bld) [#/Vol] 4.94 10*6/uL 3.60-5.00 [facility] Serum or plasma anion gap de terminationOrdered By: Shanelle Bowen on 08-30-2022 Anion gap [Moles/Vol] 17.7 mmol/L 6.0-15.0 [facility] Sodium [Moles/volume] in Ser um or PlasmaOrdered By: Shanelle Bowen on 08-30-2022 Sodium [Moles/Vol] 138 mmol/L 136-146 [facility] Specific gravity Auto test s trip (U) [Rel density]Ordered By: Shanelle Bowen on 08-30-2022 Specific gravity (U) [Rel density] 1.016 1.001-1.030 [facility] Squamous epithelial cells de tection in urine sediment by light microscopyOrdered By: Shanelle Bowen on 08-30-2022 Epithelial cells.squamous LM Ql (Urine sed) 1-2 [HPF] 0-2 [facility] Urea nitrogen [Mass/volume] in Serum or PlasmaOrdered By: Shanelle Bowen on 08-30-2022 Urea nitrogen [Mass/Vol] 5 mg/dL 9-23 [facility] Urine bacteria detection by automated methodOrdered By: Shanelle Bowen on 08-30-2022 Bacteria Auto Ql (U) None seen None Seen [facility] Urine clarity by refractomet ry automatedOrdered By: Shanelle Bowen on 08-30-2022 Clarity Refractometry automated (U) Clear Clear [facility] Urine culture routineOrdered By: Shanelle Bowen on 08-30-2022 Bacteria identified Cx Nom (U) 2 Days [facility] Urine glucose measurement by automated test strip (mass/volume)Ordered By: Shanelle Bowen on 08-30-2022 Glucose Auto test strip (U) [Mass/Vol] Normal mg/dL Normal [facility] Urine hemoglobin detection b y automated test stripOrdered By: Shanelle Bowen on 08-30-2022 Hemoglobin Auto test strip Ql (U) 3+ Negative [facility] Urine leukocyte esterase det ection by automated test stripOrdered By: Shanelle Bowen on 08-30-2022 Leukocyte esterase Auto test strip Ql (U) 1+ Negative [facility] Urobilinogen Auto test strip (U) [Mass/Vol]Ordered By: Shanelle Bowen on 08-30-2022 Urobilinogen (U) [Mass/Vol] Normal mg/dL Normal [facility] WBC Auto (Bld) [#/Vol]Ordere d By: Shanelle Bowen on 08-30-2022 WBC (Bld) [#/Vol] 10.5 10*3/uL 3.8-11.6 [facility] pH Auto test strip (U)Ordere d By: Shanelle Bowen on 08-30-2022 pH (U) 6.5 [pH] 5.0-9.0 [facility] Albumin [Mass/volume] in Ser um or PlasmaOrdered By: Roberto Whittaker on 08-18-2022 Albumin [Mass/Vol] 4.6 g/dL 3.2-5.5 [facility] Alkaline phosphatase [Enzyma tic activity/volume] in Serum or PlasmaOrdered By: Roberto Whittaker on 08-18-2022 ALP [Catalytic activity/Vol] 50 U/L 32-92 [facility] Aspartate aminotransferase [ Enzymatic activity/volume] in Serum or PlasmaOrdered By: Roberto Whittaker on 08-18-2022 AST [Catalytic activity/Vol] 19 U/L 10-42 [facility] Basophils Auto (Bld) [#/Vol] Ordered By: Roberto Whittaker on 08-18-2022 Basophils (Bld) [#/Vol] 0.0 10*3/uL 0.0-0.2 [facility] Basophils/100 WBC Auto (Bld) Ordered By: Roberto Whittaker on 08-18-2022 Basophils/100 WBC (Bld) 0.5 % . [facility] Calcium [Mass/volume] in Ser um or PlasmaOrdered By: Roberto Whittaker on 08-18-2022 Calcium [Mass/Vol] 9.4 mg/dL 8.2-10.2 [facility] Carbon dioxide, total [Moles /volume] in Serum or PlasmaOrdered By: Roberto Whittaker on 08-18-2022 CO2 [Moles/Vol] 26.7 mmol/L 22.0-30.0 [facility] Creatinine and Glomerular fi ltration rate.predicted panel (S/P/Bld)Ordered By: Roberto Whittaker on 08-18-2022 Creatinine [Mass/Vol] 0.87 mg/dL 0.44-1.03 [facility] Eosinophils Auto (Bld) [#/Vo l]Ordered By: Roberto Whittaker on 08-18-2022 Eosinophils (Bld) [#/Vol] 0.0 10*3/uL 0.0-0.45 [facility] Eosinophils/100 WBC Auto (Bl d)Ordered By: Roberto Whittaker on 08-18-2022 Eosinophils/100 WBC (Bld) 0.5 % . [facility] Erythrocyte distribution wid th Auto (RBC) [Ratio]Ordered By: Roberto Whittaker on 08-18-2022 Erythrocyte distribution width (RBC) [Ratio] 13.7 % 11.9-15.3 [facility] Estimated glomerular filtrat ion rate (GFR) non- AmericanOrdered By: Roberto Whittaker on 08-18-2022 GFR/1.73 sq M.predicted among non-blacks MDRD (S/P/Bld) [Vol rate/Area] > 60 mL/Min [facility] Globulin Calc (S) [Mass/Vol] Ordered By: Roberto Whittaker on 08-18-2022 Globulin (S) [Mass/Vol] 2.7 g/dL [facility] Hematocrit Auto (Bld) [Volum e fraction]Ordered By: Roberto Whittaker on 08-18-2022 Hematocrit (Bld) [Volume fraction] 39.6 % 34.0-46.4 [facility] Hemoglobin [Mass/volume] in BloodOrdered By: Roberto Whittaker on 08-18-2022 Hemoglobin (Bld) [Mass/Vol] 13.3 g/dL 11.8-15.4 [facility] - Chemistry and C hemistry - challengeOrdered By: Roberto Whittaker on 08-18-2022 Magnesium [Mass/Vol] 2.1 mg/dL 1.6-2.6 [facility] Leukocytes [#/volume] correc manjula for nucleated erythrocytes in Blood by Automated counOrdered By: Roberto Whittaker on 08-18-2022 WBC corrected for nucl RBC Auto (Bld) [#/Vol] 6.9 10*3/uL 3.8-11.6 [facility] Lymphocytes Auto (Bld) [#/Vo l]Ordered By: Roberto Whittaker on 08-18-2022 Lymphocytes (Bld) [#/Vol] 2.2 10*3/uL 1.00-4.8 [facility] Lymphocytes/100 WBC Auto (Bl d)Ordered By: Roberto Whittaker on 08-18-2022 Lymphocytes/100 WBC (Bld) 31.2 % . [facility] MCH Auto (RBC) [Entitic mass ]Ordered By: Roberto Whittaker on 08-18-2022 MCH (RBC) [Entitic mass] 29.3 pg 24.7-34.3 [facility] MCHC Auto (RBC) [Mass/Vol]Or dered By: Roberto Whittaker on 08-18-2022 MCHC (RBC) [Mass/Vol] 33.5 g/dL 32.0-35.0 [facility] MCV Auto (RBC) [Entitic vol] Ordered By: Roberto Whittaker on 08-18-2022 MCV (RBC) [Entitic vol] 87.5 fL 80-100 [facility] Monocyte distribution width [Entitic volume] in Blood by AutomatedOrdered By: Roberto Whittaker on 08-18-2022 Monocyte distribution width Auto (Bld) [Entitic vol] 17.66 % 0.00-20.00 [facility] Monocytes Auto (Bld) [#/Vol] Ordered By: Roberto Whittaker on 08-18-2022 Monocytes (Bld) [#/Vol] 0.5 10*3/uL 0.0-0.8 [facility] Monocytes/100 WBC Auto (Bld) Ordered By: Roberto Whittaker on 08-18-2022 Monocytes/100 WBC (Bld) 7.4 % . [facility] Neutrophils Auto (Bld) [#/Vo l]Ordered By: Roberto Whittaker on 08-18-2022 Neutrophils (Bld) [#/Vol] 4.2 10*3/uL 1.8-7.7 [facility] Neutrophils/100 WBC Auto (Bl d)Ordered By: Roberto Whittaker on 08-18-2022 Neutrophils/100 WBC (Bld) 60.4 % . [facility] No Panel InformationOrdered By: Roberto Whittaker on 08-18-2022 Levetiracetam (Keppra) Level 98.1 ug/mL 10.0-40.0 [facility] Comment on above: Performed at: - [address] [id number] Director: Sina Hills MD, Phone: [phone] Estimated GFR () > 60 mL/Min [facility] Comment on above: GFR estimated refere nce range: According to KDOQI guidelines, <60 ml/min/1.73m2 is sufficient to diagnose a patient with chronic kidney disease. Pharmacy Creatinine Clearance (Chem 75.25 [facility] Nucleated erythrocytes [Pres ence] in Blood by Automated countOrdered By: Roberto Whittaker on 08-18-2022 Nucleated RBC Auto Ql (Bld) 0.1 /100{WBC} 0-0.5 [facility] Platelet mean volume Auto (B ld) [Entitic vol]Ordered By: Roberto Whittaker on 08-18-2022 Platelet mean volume (Bld) [Entitic vol] 7.8 fL 6.3-10.7 [facility] Platelets Auto (Bld) [#/Vol] Ordered By: Roberto Whittaker on 08-18-2022 Platelets (Bld) [#/Vol] 237 10*3/uL 150-450 [facility] Prolactin [Mass/volume] in S alexis or PlasmaOrdered By: Roberto Whittaker on 08-18-2022 Prolactin [Mass/Vol] 22.52 ng/mL 3.34-26.72 [facility] Protein [Mass/volume] in Ser um or PlasmaOrdered By: Roberto Whittaker on 08-18-2022 Protein [Mass/Vol] 7.3 g/dL 6.1-7.9 [facility] RBC Auto (Bld) [#/Vol]Ordere d By: Roberto Whittaker on 08-18-2022 RBC (Bld) [#/Vol] 4.53 10*6/uL 3.60-5.00 [facility] Serum or plasma alanine white otransferase measurement without P-5'-P (enzymatic activiOrdered By: Roberto Whittaker on 08-18-2022 ALT No additional P-5'-P [Catalytic activity/Vol] 10 U/L 10-60 [facility] Serum or plasma albumin/glob ulin mass ratioOrdered By: Roberto Whittaker on 08-18-2022 Albumin/Globulin [Mass ratio] 1.7 {ratio} [facility] Serum or plasma anion gap de terminationOrdered By: Roberto Whittaker on 08-18-2022 Anion gap [Moles/Vol] 11.9 mmol/L 6.0-15.0 [facility] Serum or plasma chloride melonie surement (moles/volume)Ordered By: Roberto Whittaker on 08-18-2022 Chloride [Moles/Vol] 103 mmol/L 95-114 [facility] Serum or plasma glucose randi urement (mass/volume)Ordered By: Roberto Whittaker on 08-18-2022 Glucose [Mass/Vol] 83 mg/dL 70-100 [facility] Comment on above: ADA recommended refe rence rangeRandom Glucose Reference Range is dependent on time and content of last meal. Glucose of more than 200 mg/dL in a nonstressed, ambulatory subject supports the diagnosis of Diabetes Mellitus. Serum or plasma potassium me asurement (moles/volume)Ordered By: Roberto Whittaker on 08-18-2022 Potassium [Moles/Vol] 3.6 mmol/L 3.5-5.1 [facility] Serum or plasma sodium measu rement (moles/volume)Ordered By: Roberto Whittaker on 08-18-2022 Sodium [Moles/Vol] 138 mmol/L 136-146 [facility] Serum or plasma total biliru bin measurement (mass/volume)Ordered By: Roberto Whittaker on 08-18-2022 Bilirubin [Mass/Vol] 0.8 mg/dL 0.3-1.2 [facility] Urea nitrogen [Mass/volume] in Serum or PlasmaOrdered By: Roberto Whittaker on 08-18-2022 Urea nitrogen [Mass/Vol] 10 mg/dL 9-23 [facility] WBC Auto (Bld) [#/Vol]Ordere d By: Roberto Whittaker on 08-18-2022 WBC (Bld) [#/Vol] 6.9 10*3/uL 3.8-11.6 [facility] Amphetamine Screen Ql (U)Ord ered By: Attila Nelson on 07-27-2022 Amphetamines Ql (U) Negative Negative [facility] Automated erythrocytes count in urine sediment (number/area)Ordered By: Attila Nelson on 07-27-2022 RBC Auto (Urine sed) [#/Area] 50-100 [HPF] 0-4 [facility] Automated leukocytes count i n urine sediment (number/area)Ordered By: Attila Nelson on 07-27-2022 WBC Auto (Urine sed) [#/Area] 3-4 [HPF] 0-4 [facility] Barbiturates [Presence] in U rineOrdered By: Attila Nelson on 07-27-2022 Barbiturates Ql (U) Negative Negative [facility] Basophils Auto (Bld) [#/Vol] Ordered By: Attila Nelson on 07-27-2022 Basophils (Bld) [#/Vol] 0.0 10*3/uL 0.0-0.2 [facility] Basophils/100 WBC Auto (Bld) Ordered By: Attila Nelson on 07-27-2022 Basophils/100 WBC (Bld) 0.4 % . [facility] Benzodiazepines [Presence] i n UrineOrdered By: Attila Nelson on 07-27-2022 Benzodiazepines Ql (U) Negative Negative [facility] Bilirubin Test strip Ql (U)O rdered By: Attila Nelson on 07-27-2022 Bilirubin Ql (U) Negative Negative [facility] Body fluid albumin measureme nt (mass/volume)Ordered By: Attila Nelson on 07-27-2022 Albumin (Body fld) [Mass/Vol] 4.5 g/dL 3.2-5.5 [facility] Cannabinoids [Presence] in U rine by Screen methodOrdered By: Attila Nelson on 07-27-2022 Cannabinoids Screen Ql (U) Positive Negative [facility] Comment on above: These are unconfirme d results and should not be used for legal purposes. Drug Cut-Off Concentration: AMPH 1000 ng/mL DOMINIQUE 200 ng/mL BRICE 200 ng/mL COCM 300 ng/mL OP 300 ng/mL PCP 25 ng/mL THC 20 ng/mL Color Auto (U)Ordered By: Cezar Nelson on 07-27-2022 Color (U) Yellow Yellow [facility] Creatinine and Glomerular fi ltration rate.predicted panel (S/P/Bld)Ordered By: Attila Nelson on 07-27-2022 Creatinine [Mass/Vol] 0.78 mg/dL 0.44-1.03 [facility] Eosinophils Auto (Bld) [#/Vo l]Ordered By: Attila Nelson on 07-27-2022 Eosinophils (Bld) [#/Vol] 0.0 10*3/uL 0.0-0.45 [facility] Eosinophils/100 WBC Auto (Bl d)Ordered By: Attila Nelson on 07-27-2022 Eosinophils/100 WBC (Bld) 0.5 % . [facility] Erythrocyte distribution wid th Auto (RBC) [Ratio]Ordered By: Attila Nelson on 07-27-2022 Erythrocyte distribution width (RBC) [Ratio] 13.7 % 11.9-15.3 [facility] Estimated glomerular filtrat ion rate (GFR) non- AmericanOrdered By: Attila Nelson on 07-27-2022 GFR/1.73 sq M.predicted among non-blacks MDRD (S/P/Bld) [Vol rate/Area] > 60 mL/Min [facility] Globulin Calc (S) [Mass/Vol] Ordered By: Attila Nelson on 07-27-2022 Globulin (S) [Mass/Vol] 3.1 g/dL [facility] HCG ( test) IA.rapi d Ql (U)Ordered By: Attila Nelson on 07-27-2022 HCG ( test) Ql (U) Negative [facility] Hematocrit Auto (Bld) [Volum e fraction]Ordered By: Attila Nelson on 07-27-2022 Hematocrit (Bld) [Volume fraction] 40.5 % 34.0-46.4 [facility] Hemoglobin [Mass/volume] in BloodOrdered By: Attila Nelson on 07-27-2022 Hemoglobin (Bld) [Mass/Vol] 13.7 g/dL 11.8-15.4 [facility] Ketones Auto test strip (U) [Mass/Vol]Ordered By: Attila Nelson on 07-27-2022 Ketones (U) [Mass/Vol] Negative Negative [facility] Laboratory - Drug toxicology Ordered By: Attila Nelson on 07-27-2022 Opiates Ql (U) Negative Negative [facility] - UrinalysisOrder ed By: Attila Nelson on 07-27-2022 Hyaline casts LM Ql (Urine sed) 0-8 [LPF] 0-8 [facility] Leukocytes [#/volume] correc manjula for nucleated erythrocytes in Blood by Automated counOrdered By: Attila Nelson on 07-27-2022 WBC corrected for nucl RBC Auto (Bld) [#/Vol] 6.8 10*3/uL 3.8-11.6 [facility] Lymphocytes Auto (Bld) [#/Vo l]Ordered By: Attila Nelson on 07-27-2022 Lymphocytes (Bld) [#/Vol] 2.9 10*3/uL 1.00-4.8 [facility] Lymphocytes/100 WBC Auto (Bl d)Ordered By: Attila Nelson on 07-27-2022 Lymphocytes/100 WBC (Bld) 42.2 % . [facility] MCH Auto (RBC) [Entitic mass ]Ordered By: Attila Nelson on 07-27-2022 MCH (RBC) [Entitic mass] 29.6 pg 24.7-34.3 [facility] MCHC Auto (RBC) [Mass/Vol]Or dered By: Attila Nelson on 07-27-2022 MCHC (RBC) [Mass/Vol] 33.8 g/dL 32.0-35.0 [facility] MCV Auto (RBC) [Entitic vol] Ordered By: Attila Nelson on 07-27-2022 MCV (RBC) [Entitic vol] 87.6 fL 80-100 [facility] Monocyte distribution width [Entitic volume] in Blood by AutomatedOrdered By: Attila Nelson on 07-27-2022 Monocyte distribution width Auto (Bld) [Entitic vol] 17.82 % 0.00-20.00 [facility] Monocytes Auto (Bld) [#/Vol] Ordered By: Attila Nelson on 07-27-2022 Monocytes (Bld) [#/Vol] 0.4 10*3/uL 0.0-0.8 [facility] Monocytes/100 WBC Auto (Bld) Ordered By: Attila Nelson on 07-27-2022 Monocytes/100 WBC (Bld) 5.7 % . [facility] Neutrophils Auto (Bld) [#/Vo l]Ordered By: Attila Nelson on 07-27-2022 Neutrophils (Bld) [#/Vol] 3.4 10*3/uL 1.8-7.7 [facility] Neutrophils/100 WBC Auto (Bl d)Ordered By: Attila Nelson on 07-27-2022 Neutrophils/100 WBC (Bld) 51.2 % . [facility] Nitrite Test strip Ql (U)Ord ered By: Attila Nelson on 07-27-2022 Nitrite Ql (U) Negative Negative [facility] No Panel InformationOrdered By: Attila Nelson on 07-27-2022 Estimated GFR () > 60 mL/Min [facility] Comment on above: GFR estimated refere nce range: According to KDOQI guidelines, <60 ml/min/1.73m2 is sufficient to diagnose a patient with chronic kidney disease. Pharmacy Creatinine Clearance (Chem 85.01 [facility] Nucleated erythrocytes [Pres ence] in Blood by Automated countOrdered By: Attila Nelson on 07-27-2022 Nucleated RBC Auto Ql (Bld) 0.2 /100{WBC} 0-0.5 [facility] Phencyclidine Screen Ql (U)O rdered By: Attila Nelson on 07-27-2022 Phencyclidine Ql (U) Negative Negative [facility] Platelet mean volume Auto (B ld) [Entitic vol]Ordered By: Attila Nelson on 07-27-2022 Platelet mean volume (Bld) [Entitic vol] 8.3 fL 6.3-10.7 [facility] Platelets Auto (Bld) [#/Vol] Ordered By: Attila Nelson on 07-27-2022 Platelets (Bld) [#/Vol] 278 10*3/uL 150-450 [facility] Prolactin [Mass/volume] in S alexis or PlasmaOrdered By: Attila Nelson on 07-27-2022 Prolactin [Mass/Vol] 20.59 ng/mL 3.34-26.72 [facility] Protein Auto test strip (U) [Mass/Vol]Ordered By: Attila Nelson on 07-27-2022 Protein (U) [Mass/Vol] Trace mg/dL Negative [facility] Protein [Mass/volume] in Ser um or PlasmaOrdered By: Attila Nelson on 07-27-2022 Protein [Mass/Vol] 7.6 g/dL 6.1-7.9 [facility] RBC Auto (Bld) [#/Vol]Ordere d By: Attila Nelson on 07-27-2022 RBC (Bld) [#/Vol] 4.62 10*6/uL 3.60-5.00 [facility] Serum or plasma alanine white otransferase measurement without P-5'-P (enzymatic activiOrdered By: Attila Nelson on 07-27-2022 ALT No additional P-5'-P [Catalytic activity/Vol] 9 U/L 10-60 [facility] Serum or plasma albumin/glob ulin mass ratioOrdered By: Attila Nelson on 07-27-2022 Albumin/Globulin [Mass ratio] 1.5 {ratio} [facility] Serum or plasma alkaline ignacio sphatase measurement (enzymatic activity/volume)Ordered By: Attila Nelson on 07-27-2022 ALP [Catalytic activity/Vol] 49 U/L 32-92 [facility] Serum or plasma anion gap de terminationOrdered By: Attila Nelson on 07-27-2022 Anion gap [Moles/Vol] 16.6 mmol/L 6.0-15.0 [facility] Serum or plasma aspartate am inotransferase measurement (enzymatic activity/volume)Ordered By: Attila Nelson on 07-27-2022 AST [Catalytic activity/Vol] 20 U/L 10-42 [facility] Serum or plasma calcium randi urement (mass/volume)Ordered By: Attila Nelson on 07-27-2022 Calcium [Mass/Vol] 9.6 mg/dL 8.2-10.2 [facility] Serum or plasma chloride melonie surement (moles/volume)Ordered By: Attila Nelson on 07-27-2022 Chloride [Moles/Vol] 103 mmol/L 95-114 [facility] Serum or plasma glucose randi urement (mass/volume)Ordered By: Attila Nelson on 07-27-2022 Glucose [Mass/Vol] 107 mg/dL 70-100 [facility] Comment on above: ADA recommended refe rence rangeRandom Glucose Reference Range is dependent on time and content of last meal. Glucose of more than 200 mg/dL in a nonstressed, ambulatory subject supports the diagnosis of Diabetes Mellitus. Serum or plasma potassium me asurement (moles/volume)Ordered By: Attila Nelson on 07-27-2022 Potassium [Moles/Vol] 3.8 mmol/L 3.5-5.1 [facility] Serum or plasma sodium measu rement (moles/volume)Ordered By: Attila Nelson on 07-27-2022 Sodium [Moles/Vol] 141 mmol/L 136-146 [facility] Serum or plasma total biliru bin measurement (mass/volume)Ordered By: Attila Nelson on 07-27-2022 Bilirubin [Mass/Vol] 0.5 mg/dL 0.3-1.2 [facility] Serum or plasma total carbon dioxide measurement (moles/volume)Ordered By: Attila Nelson on 07-27-2022 CO2 [Moles/Vol] 25.2 mmol/L 22.0-30.0 [facility] Serum or plasma urea nitroge n measurement (mass/volume)Ordered By: Attila Nelson on 07-27-2022 Urea nitrogen [Mass/Vol] 5 mg/dL 9-23 [facility] Specific gravity Auto test s trip (U) [Rel density]Ordered By: Attila Nelson on 07-27-2022 Specific gravity (U) [Rel density] 1.022 1.001-1.030 [facility] Squamous epithelial cells de tection in urine sediment by light microscopyOrdered By: Attila Nelson on 07-27-2022 Epithelial cells.squamous LM Ql (Urine sed) 1-2 [HPF] 0-2 [facility] Urine bacteria detection by automated methodOrdered By: Attila Nelson on 07-27-2022 Bacteria Auto Ql (U) None seen None Seen [facility] Urine clarity by refractomet ry automatedOrdered By: Attila Nelson on 07-27-2022 Clarity Refractometry automated (U) Cloudy Clear [facility] Urine cocaine detectionOrder ed By: Attila Nelson on 07-27-2022 Cocaine Ql (U) Negative Negative [facility] Urine glucose measurement by automated test strip (mass/volume)Ordered By: Attila Nelson on 07-27-2022 Glucose Auto test strip (U) [Mass/Vol] Normal mg/dL Normal [facility] Urine hemoglobin detection b y automated test stripOrdered By: Attila Nelson on 07-27-2022 Hemoglobin Auto test strip Ql (U) 3+ Negative [facility] Urine leukocyte esterase det ection by automated test stripOrdered By: Attila Nelson on 07-27-2022 Leukocyte esterase Auto test strip Ql (U) 1+ Negative [facility] Urobilinogen Auto test strip (U) [Mass/Vol]Ordered By: Attila Nelson on 07-27-2022 Urobilinogen (U) [Mass/Vol] Normal mg/dL Normal [facility] WBC Auto (Bld) [#/Vol]Ordere d By: Attila Nelson on 07-27-2022 WBC (Bld) [#/Vol] 6.8 10*3/uL 3.8-11.6 [facility] pH Auto test strip (U)Ordere d By: Attila Nelson on 07-27-2022 pH (U) 7.0 [pH] 5.0-9.0 [facility] CBC AUTO DIFFon 06-12-2022 BASO # 0.0 103/ul Normal 0.0-0.[address] [facility] Comment on above: Performed By: #### C BEENA SANCHEZ #### [facility] [address] [address] [address] Jovanni Maya Basophils/100 WBC (Bld) 0.2 % Normal 0.2-2.[address] [facility] Comment on above: Performed By: #### C MOIZ SANCHEZOPN #### [facility] [address] [place] [address] Dr. Jovanni Maya EO # 0.0 103/ul Normal 0.0-0.[address] [facility] Comment on above: Performed By: #### C MP, HSTROPN #### [facility] [address] [place] [address] Dr. Jovanni Maya Eosinophils/100 WBC (Bld) 0.1 % Critically low 0.9-7.[address] [facility] Comment on above: Performed By: #### C DANIEL, HSTROPN #### [facility] [address] [place] [address] Dr. Jovanni Maya Erythrocyte distribution width (RBC) [Ratio] 12.7 % Normal 11.0-15.[address] [facility] Comment on above: Performed By: #### C DANIEL, HSTROPN #### [facility] [address] [place] [address] Dr. Jovanni Maya Hematocrit (Bld) [Volume fraction] 38.2 % Normal 36.0-48.[address] [facility] Comment on above: Performed By: #### C DANIEL, HSTROPN #### [facility] [address] [place] [address] Dr. Jovanni Maya Hemoglobin (Bld) [Mass/Vol] 13.4 g/dL Normal 12.0-16.[address] [facility] Comment on above: Performed By: #### C DANIEL, HSTROPN #### [facility] [address] [place] [address] Dr. Jovanni Maya IG # 0.04 10e3/ul Critically high 0.00-0.03 [facility] Comment on above: Performed By: #### C DANIEL, HSTROPN #### [facility] [address] [place] [address] Dr. Jovanni Maya IG % 0.3 % Normal 0.0-0.[address] [facility] Comment on above: Performed By: #### C MP, HSTROPN #### [facility] [address] [place] [address] Dr. Jovanni Maya LYMPH # 1.6 103/ul Normal 1.2-3.8 [facility] Comment on above: Performed By: #### C DANIEL, HSTROPN #### [facility] [address] [place] [address] Dr. Jovanni Maya Lymphocytes/100 WBC (Bld) 12.9 % Critically low 20.5-60.[address] [facility] Comment on above: Performed By: #### C DANIEL, HSTROPN #### [facility] [address] [place] [address] Dr. Jovanni Maya MANUAL DIFF REQ NO Normal [facility] Comment on above: Performed By: #### C DANIEL, HSTROPN #### [facility] [address] [place] [address] Dr. Jovanni Maya MCH (RBC) [Entitic mass] 29.6 pg Normal 26.7-34.[address] [facility] Comment on above: Performed By: #### C DANIEL, HSTROPN #### [facility] [address] [place] [address] Dr. Jovanni Maya MCHC (RBC) [Mass/Vol] 35.1 g/dL Normal 29.9-35.2 [facility] Comment on above: Performed By: #### C DANIEL, HSTROPN #### [facility] [address] [place] [address] Dr. Jovanni Maya MCV (RBC) [Entitic vol] 84.5 fL Normal 81.0-99.0 [facility] Comment on above: Performed By: #### C MP, HSTROPN #### [facility] [address] [place] [address] Dr. Jovanni Maya MONO # 0.6 103/ul Normal 0.3-0.8 [facility] Comment on above: Performed By: #### C DANIEL, HSTROPN #### [facility] [address] [place] [address] Dr. Jovanni Maya Monocytes/100 WBC (Bld) 4.9 % Normal 1.7-12.0 [facility] Comment on above: Performed By: #### C DANIEL, HSTROPN #### [facility] [address] [place] [address] Dr. Jovanni Maya NEUT # 10.4 103/ul Critically high 1.4-6.5 [facility] Comment on above: Performed By: #### C MP, HSTROPN #### [facility] [address] [place] [address] Dr. Jovanni Maya Neutrophils/100 WBC (Bld) 81.6 % Critically high 43.0-75.0 [facility] Comment on above: Performed By: #### C MP, HSTROPN #### [facility] [address] [place] [address] Dr. Jovanni Maya Platelet mean volume (Bld) [Entitic vol] 9.3 fL Critically low 9.5-13.[address] [facility] Comment on above: Performed By: #### C MP, HSTROPN #### [facility] [address] [place] [address] Dr. Jovanni Maya PLT 231 103/ul Normal 150-450 [facility] Comment on above: Performed By: #### C MP, HSTROPN #### [facility] [address] [place] [address] Dr. Jovanni Maya RBC 4.52 106/ul Normal 4.20-5.40 [facility] Comment on above: Performed By: #### C MP, HSTROPN #### [facility] [address] [place] [address] Dr. Jovanni Maya WBC 12.7 103/ul Critically high 4.0-11.0 [facility] Comment on above: Performed By: #### C MP, HSTROPN #### [facility] [address] [place] [address] HEAD WO CONon [...] LO TUTTLE Date: 2022-06-12 21:00 Normal [facility] DRUG SCREEN RAPID (URINE)on 06-12-2022 AMP Negative Normal NEGATIVE [facility] Comment on above: Performed By: #### P REG, ACETON #### [facility] [address] [place] [address] Dr. Jovanni Maya BAR Negative Normal NEGATIVE [facility] Comment on above: Performed By: #### P REG, ACETON #### [facility] [address] [address] [address] Jovanni Maya BUP Negative Normal NEGATIVE [facility] Comment on above: Performed By: #### P REG, ACETON #### [facility] [address] [place] [address] Dr. Jovanni Maya BZO Negative Normal NEGATIVE [facility] Comment on above: Performed By: #### P REG, ACETON #### [facility] [address] [address] [address] Jovanni Maya DARIEN Negative Normal NEGATIVE [facility] Comment on above: Performed By: #### P REG, ACETON #### [facility] [address] [place] [address] Dr. Jovanni Maya CUT-OFFS SEE BELOW Normal [facility] Comment on above: Result Comment: AMP (Amphetamine): [...] Performed By: #### P REG, ACETON #### [facility] [address] [place] [address] Dr. Jovanni Maya DRUG CUT HEADER DRUG CLASS TEST SYST EM CUT-OFF CONCENTRATIONS ARE FOLLOWS: Normal [facility] Comment on above: Performed By: #### P REG, ACETON #### [facility] [address] [place] [address] Dr. Jovanni Maya mAMP Negative Normal NEGATIVE [facility] Comment on above: Performed By: #### P REG, ACETON #### [facility] [address] [place] [address] Dr. Jovanni Maya MTD Negative Normal NEGATIVE [facility] Comment on above: Performed By: #### P REG, ACETON #### [facility] [address] [place] [address] Dr. Jovanni Maya OPI Positive Abnormal NEGATIVE [facility] Comment on above: Performed By: #### P REG, ACETON #### [facility] [address] [place] [address] Dr. Jovanni Maya OXY Negative Normal NEGATIVE [facility] Comment on above: Performed By: #### P REG, ACETON #### [facility] [address] [place] [address] Dr. Jovanni Maya PCP Negative Normal NEGATIVE [facility] Comment on above: Performed By: #### P REG, ACETON #### [facility] [address] [place] [address] Dr. Jovanni Maya PPX Negative Normal NEGATIVE [facility] Comment on above: Performed By: #### P REG, ACETON #### [facility] [address] [address] [address] Jovanni Maya TCA Negative Normal NEGATIVE [facility] Comment on above: Performed By: #### P REG, ACETON #### [facility] [address] [address] [address] Jovanni Maya THC Positive Abnormal NEGATIVE [facility] Comment on above: Performed By: #### P REG, ACETON #### [facility] [address] [place] [address] Dr. Jovanni Maya ER URINE PROFILEon 2 Bilirubin Ql (U) Negative Normal NEGATIVE [facility] Comment on above: Performed By: #### C MP, HSTROPN #### [facility] [address] [place] [address] Dr. Jovanni Maya Clarity (U) CLEAR Normal CLEAR [facility] Comment on above: Performed By: #### C MP, HSTROPN #### [facility] [address] [place] [address] Dr. Jovanni Maya Color (U) LT. YELLOW Normal YELLOW [facility] Comment on above: Performed By: #### C MP, HSTROPN #### [facility] [address] [place] [address] Dr. Jovanni Maya ERUJUSTINED A micrscopic examina tion will be performed if indicated. Normal [facility] Comment on above: Performed By: #### C MP, HSTROPN #### [facility] [address] [place] [address] Dr. Jovanni Maya Glucose Ql (U) Negative Normal NEGATIVE [facility] Comment on above: Performed By: #### C MP, HSTROPN #### [facility] [address] [place] [address] Dr. Jovanni Maya Hemoglobin Ql (U) Negative Normal NEGATIVE [facility] Comment on above: Performed By: #### C MP, HSTROPN #### [facility] [address] [place] [address] Dr. Jovanni Maya Ketones Ql (U) Negative Normal NEGATIVE [facility] Comment on above: Performed By: #### C MP, HSTROPN #### [facility] [address] [place] [address] Dr. Jovanni Maya LEUKOCYTES Negative Normal NEGATIVE [facility] Comment on above: Performed By: #### C MP, HSTROPN #### [facility] [address] [place] [address] Dr. Jovanni Maya Nitrite Ql (U) Negative Normal NEGATIVE [facility] Comment on above: Performed By: #### C DANIEL, HSTROPN #### [facility] [address] [place] [address] Dr. Jovanni Maya pH (U) 8.5 [pH] Normal 5-9 [facility] Comment on above: Performed By: #### C DANIEL, HSTROPN #### [facility] [address] [place] [address] Dr. Jovanni Maya SPEC GRAVITY 1.015 Normal 1.005-<=1.[address] [facility] Comment on above: Performed By: #### C DANIEL, HSTROPN #### [facility] [address] [place] [address] Dr. Jovanni Maya UA PROTEIN Negative Normal NEGATIVE/ TRACE [facility] Comment on above: Performed By: #### C DANIEL, HSTROPN #### [facility] [address] [place] [address] Dr. Jovanni Maya UR MICRO IND NOT INDICATED Normal [facility] Comment on above: Performed By: #### C DANIEL, HSTROPN #### [facility] [address] [place] [address] Dr. Jovanni Maya Urobilinogen Qn (U) 0.2 {Carlos A'U}/dL Normal 0.2 - 1. [address] [facility] Comment on above: Performed By: #### C DANIEL, HSTROPN #### [facility] [address] [place] [address] Dr. Jovanni Maya URon 06-12-2022 , QUAL Negative Normal NEGATIVE [facility] Comment on above: Performed By: #### C DANIEL, HSTROPN #### [facility] [address] [address] [address] Jovanni Maya PROF 14(COMP METB)on 022 Albumin [Mass/Vol] 4.1 g/dL Normal 3.4-5.0 [facility] Comment on above: Performed By: #### C MP, HSTROPN #### [facility] [address] [address] [address] Jovanni Maya Albumin/Globulin [Mass ratio] 1.2 {ratio} Normal [facility] Comment on above: Performed By: #### C MP, HSTROPN #### [facility] [address] [address] [address] Jovanni Maya ALP [Catalytic activity/Vol] 53 U/L Normal 46-[address] [facility] Comment on above: Performed By: #### C MP, HSTROPN #### [facility] [address] [address] [address] Jovanni Maya ALT [Catalytic activity/Vol] 11 U/L Critically low 14-[address] [facility] Comment on above: Performed By: #### C MP, HSTROPN #### [facility] [address] [address] [address] Jovanni Maya Anion gap [Moles/Vol] 9.5 mmol/L Normal [facility] Comment on above: Performed By: #### C MP, HSTROPN #### [facility] [address] [address] [address] Jovanni Maya AST [Catalytic activity/Vol] 21 U/L Normal 15-[address] [facility] Comment on above: Performed By: #### C MP, HSTROPN #### [facility] [address] [address] [address] Jovanni Maya Bilirubin [Mass/Vol] 0.3 mg/dL Normal 0.2-1.[address] [facility] Comment on above: Performed By: #### C MP, HSTROPN #### [facility] [address] [address] [address] Jovanni Maya Calcium [Mass/Vol] 8.7 mg/dL Normal 8.5-10.1 [facility] Comment on above: Performed By: #### C MP, HSTROPN #### [facility] [address] [address] [address] Jovanni Maya Chloride [Moles/Vol] 104 mmol/L Normal 98-107 [facility] Comment on above: Performed By: #### C MP, HSTROPN #### [facility] [address] [address] [address] Jovanni Maya CO2 [Moles/Vol] 28.0 mmol/L Normal 21.0-32.0 [facility] Comment on above: Performed By: #### C MP, HSTROPN #### [facility] [address] [place] [address] Dr. Jovanni Maya Creatinine [Mass/Vol] 0.79 mg/dL Normal 0.55-1.[address] [facility] Comment on above: Performed By: #### C MP, HSTROPN #### [facility] [address] [address] [address] Jovanni Maya EGFR-AF HAITIAN >60 Normal >=60 [facility] Comment on above: Performed By: #### C MP, HSTROPN #### [facility] [address] [place] [address] Dr. Jovanni Maya EGFR-NON AF HAITIAN >60 Normal >=60 [facility] Comment on above: Performed By: #### C MP, HSTROPN #### [facility] [address] [address] [address] Jovanni Maya Globulin (S) [Mass/Vol] 3.5 g/dL Normal [facility] Comment on above: Performed By: #### C MP, HSTROPN #### [facility] [address] [address] [address] Jovanni Maya Glucose [Mass/Vol] 102 mg/dL Normal 74-106 [facility] Comment on above: Performed By: #### C MP, HSTROPN #### [facility] [address] [address] [address] Jovanni Maya Potassium [Moles/Vol] 3.5 mmol/L Normal 3.5-5.[address] [facility] Comment on above: Performed By: #### C DANIEL, HSTROPN #### [facility] [address] [place] [address] Dr. Jovanni Maya Protein [Mass/Vol] 7.6 g/dL Normal 6.4-8.2 [facility] Comment on above: Performed By: #### C DANIEL, HSTROPN #### [facility] [address] [place] [address] Dr. Jovanni Maya Sodium [Moles/Vol] 138 mmol/L Normal 136-145 [facility] Comment on above: Performed By: #### C DANIEL, HSTROPN #### [facility] [address] [place] [address] Dr. Jovanni Maya Urea nitrogen [Mass/Vol] 9.0 mg/dL Normal 7.0-18.[address] [facility] Comment on above: Performed By: #### C DANIEL HSTROPN #### [facility] [address] [place] [address] Dr. Jovanni Maya Urea nitrogen/Creatinine [Mass ratio] 11.4 mg/mg Normal [facility] Comment on above: Performed By: #### C DANIEL HSTROPN #### [facility] [address] [place] [address] Dr. Jovanni Maya CBC AUTO DIFFon 05-24-2022 BASO # 0.0 103/ul Normal 0.0-0.[address] [facility] Comment on above: Performed By: #### C DANIEL, HSTROPN #### [facility] [address] [place] [address] Dr. Jovanni Maya Basophils/100 WBC (Bld) 0.1 % Critically low 0.2-2.[address] [facility] Comment on above: Performed By: #### C DANIEL, HSTROPN #### [facility] [address] [place] [address] Dr. Jovanni Maya EO # 0.0 103/ul Normal 0.0-0.[address] [facility] Comment on above: Performed By: #### C MP, HSTROPN #### [facility] [address] [place] [address] Dr. Jovanni Maya Eosinophils/100 WBC (Bld) 0.1 % Critically low 0.9-7.[address] [facility] Comment on above: Performed By: #### C MP, HSTROPN #### [facility] [address] [place] [address] Dr. Jovanni Maya Erythrocyte distribution width (RBC) [Ratio] 13.1 % Normal 11.0-15.[address] [facility] Comment on above: Performed By: #### C DANIEL, HSTROPN #### [facility] [address] [place] [address] Dr. Jovanni Maya Hematocrit (Bld) [Volume fraction] 37.2 % Normal 36.0-48.[address] [facility] Comment on above: Performed By: #### C DANIEL, HSTROPN #### [facility] [address] [place] [address] Dr. Jovanni Maya Hemoglobin (Bld) [Mass/Vol] 13.0 g/dL Normal 12.0-16.[address] [facility] Comment on above: Performed By: #### C DANIEL, HSTROPN #### [facility] [address] [place] [address] Dr. Jovanni Maya IG # 0.02 10e3/ul Normal 0.00-0.[address] [facility] Comment on above: Performed By: #### C DANIEL, HSTROPN #### [facility] [address] [place] [address] Dr. Jovanni Maya IG % 0.3 % Normal 0.0-0.5 [facility] Comment on above: Performed By: #### C DANIEL, HSTROPN #### [facility] [address] [place] [address] Dr. Jovanni Maya LYMPH # 1.4 103/ul Normal 1.2-3.[address] [facility] Comment on above: Performed By: #### C DANIEL, HSTROPN #### [facility] [address] [place] [address] Dr. Jovanni Maya Lymphocytes/100 WBC (Bld) 20.7 % Normal 20.5-60.0 [facility] Comment on above: Performed By: #### C MP, HSTROPN #### [facility] [address] [place] [address] Dr. Jovanni Maya MANUAL DIFF REQ NO Normal [facility] Comment on above: Performed By: #### C MP, HSTROPN #### [facility] [address] [place] [address] Dr. Jovanni Maya MCH (RBC) [Entitic mass] 29.5 pg Normal 26.7-34.0 [facility] Comment on above: Performed By: #### C MP, HSTROPN #### [facility] [address] [place] [address] Dr. Jovanni Maya MCHC (RBC) [Mass/Vol] 34.9 g/dL Normal 29.9-35.2 [facility] Comment on above: Performed By: #### C MP, HSTROPN #### [facility] [address] [place] [address] Dr. Jovanni Maya MCV (RBC) [Entitic vol] 84.4 fL Normal 81.0-99.0 [facility] Comment on above: Performed By: #### C MP, HSTROPN #### [facility] [address] [place] [address] Dr. Jovanni Maya MONO # 0.5 103/ul Normal 0.3-0.8 [facility] Comment on above: Performed By: #### C MP, HSTROPN #### [facility] [address] [place] [address] Dr. Jovanni Maya Monocytes/100 WBC (Bld) 7.8 % Normal 1.7-12.0 [facility] Comment on above: Performed By: #### C MP, HSTROPN #### [facility] [address] [place] [address] Dr. Jovanni Maya NEUT # 4.8 103/ul Normal 1.4-6.5 [facility] Comment on above: Performed By: #### C MP, HSTROPN #### [facility] [address] [place] [address] Dr. Jovanni Maya Neutrophils/100 WBC (Bld) 71.0 % Normal 43.0-75.[address] [facility] Comment on above: Performed By: #### C MP, HSTROPN #### [facility] [address] [place] [address] Dr. Jovanni Maya Platelet mean volume (Bld) [Entitic vol] 9.5 fL Normal 9.5-13.[address] [facility] Comment on above: Performed By: #### C MP, HSTROPN #### [facility] [address] [place] [address] Dr. Jovanni Maya PLT 228 103/ul Normal 150-[address] [facility] Comment on above: Performed By: #### C MP, HSTROPN #### [facility] [address] [place] [address] Dr. Jovanni Maya RBC 4.41 106/ul Normal 4.20-5.[address] [facility] Comment on above: Performed By: #### C MP, HSTROPN #### [facility] [address] [place] [address] Dr. Jovanni Maya WBC 6.8 103/ul Normal 4.0-11.[address] [facility] Comment on above: Performed By: #### C MP, HSTROPN #### [facility] [address] [place] [address] Dr. Jovanni Maya PROF 14(COMP METB)on 022 Albumin [Mass/Vol] 4.0 g/dL Normal 3.4-5.0 [facility] Comment on above: Performed By: #### C MP, HSTROPN #### [facility] [address] [place] [address] Dr. Jovanni Maya Albumin/Globulin [Mass ratio] 9.3 {ratio} Normal [facility] Comment on above: Performed By: #### C MP, HSTROPN #### [facility] [address] [place] [address] Dr. Jovanni Maya ALP [Catalytic activity/Vol] 56 U/L Normal 46-[address] [facility] Comment on above: Performed By: #### C DANIEL HSTROPN #### [facility] [address] [address] [address] Jovanni Maya ALT [Catalytic activity/Vol] 8 U/L Critically low 14-[address] [facility] Comment on above: Performed By: #### C DANIEL, HSTROPN #### [facility] [address] [address] [address] Jovanni Maya Anion gap [Moles/Vol] 9.3 mmol/L Normal [facility] Comment on above: Performed By: #### C DANIEL, HSTROPN #### [facility] [address] [place] [address] Dr. Jovanni Maya AST [Catalytic activity/Vol] 12 U/L Critically low 15-[address] [facility] Comment on above: Performed By: #### C DANIEL HSTROPN #### [facility] [address] [place] [address] Dr. Jovanni Maya Bilirubin [Mass/Vol] 0.3 mg/dL Normal 0.2-1.[address] [facility] Comment on above: Performed By: #### C DANIEL, HSTROPN #### [facility] [address] [place] [address] Dr. Jovanni Maya Calcium [Mass/Vol] 8.6 mg/dL Normal 8.5-10.1 [facility] Comment on above: Performed By: #### C DANIEL, HSTROPN #### [facility] [address] [place] [address] Dr. Jovanni Maya Chloride [Moles/Vol] 104 mmol/L Normal 98-107 [facility] Comment on above: Performed By: #### C DANIEL, HSTROPN #### [facility] [address] [place] [address] Dr. Jovanni Maya CO2 [Moles/Vol] 28.1 mmol/L Normal 21.0-32.0 [facility] Comment on above: Performed By: #### C DANIEL, HSTROPN #### [facility] [address] [address] [address] Jovanni Maya Creatinine [Mass/Vol] 0.71 mg/dL Normal 0.55-1.[address] [facility] Comment on above: Performed By: #### C MP, HSTROPN #### [facility] [address] [address] [address] Jovanni Maya EGFR-AF HAITIAN >60 Normal >=60 [facility] Comment on above: Performed By: #### C MP, HSTROPN #### [facility] [address] [address] [address] Jovanni Maya EGFR-NON AF HAITIAN >60 Normal >=[address] [facility] Comment on above: Performed By: #### C MP, HSTROPN #### [facility] [address] [address] [address] Jovanni Maya Globulin (S) [Mass/Vol] 3.4 g/dL Normal [facility] Comment on above: Performed By: #### C MP, HSTROPN #### [facility] [address] [address] [address] Jovanni Maya Glucose [Mass/Vol] 109 mg/dL Critically high 74-106 [facility] Comment on above: Performed By: #### C MP, HSTROPN #### [facility] [address] [address] [address] Jovanni Maya Potassium [Moles/Vol] 3.4 mmol/L Critically low 3.5-5.[address] [facility] Comment on above: Performed By: #### C MP, HSTROPN #### [facility] [address] [address] [address] Jovanni Maya Protein [Mass/Vol] 7.4 g/dL Normal 6.4-8.2 [facility] Comment on above: Performed By: #### C MP, HSTROPN #### [facility] [address] [address] [address] Jovanni Maya Sodium [Moles/Vol] 138 mmol/L Normal 136-145 [facility] Comment on above: Performed By: #### C MP, HSTROPN #### [facility] [address] [place], [place] [address] Dr. Jovanni Maya Urea nitrogen [Mass/Vol] 12.0 mg/dL Normal 7.0-18.[address] [facility] Comment on above: Performed By: #### C MP, HSTROPN #### [facility] [address] [place], [place] [address] Dr. Jovanni Maya Urea nitrogen/Creatinine [Mass ratio] 16.9 mg/mg Normal [facility] Comment on above: Performed By: #### C MP, HSTROPN #### [facility] [address] [place], [place] [address] Dr. Jovanni Maya Basophils Auto (Bld) [#/Vol] Ordered By: Aman Cortes on 05-18-2022 Basophils (Bld) [#/Vol] 0.0 10*3/uL 0.0-0.2 [facility] Basophils/100 WBC Auto (Bld) Ordered By: Aman Cortes on 05-18-2022 Basophils/100 WBC (Bld) 0.3 % . [facility] Creatinine and Glomerular fi ltration rate.predicted panel (S/P/Bld)Ordered By: Aman Cortes on 05-18-2022 Creatinine [Mass/Vol] 0.74 mg/dL 0.44-1.03 [facility] Eosinophils Auto (Bld) [#/Vo l]Ordered By: Aman Cortes on 05-18-2022 Eosinophils (Bld) [#/Vol] 0.1 10*3/uL 0.0-0.45 [facility] Eosinophils/100 WBC Auto (Bl d)Ordered By: Aman Cortes on 05-18-2022 Eosinophils/100 WBC (Bld) 0.9 % . [facility] Erythrocyte distribution wid th Auto (RBC) [Ratio]Ordered By: Aman Cortes on 05-18-2022 Erythrocyte distribution width (RBC) [Ratio] 14.5 % 11.9-15.3 [facility] Estimated glomerular filtrat ion rate (GFR) non- AmericanOrdered By: Aman Cortes on 05-18-2022 GFR/1.73 sq M.predicted among non-blacks MDRD (S/P/Bld) [Vol rate/Area] > 60 mL/Min [facility] Hematocrit Auto (Bld) [Volum e fraction]Ordered By: Aman Cortes on 05-18-2022 Hematocrit (Bld) [Volume fraction] 40.4 % 34.0-46.4 [facility] Hemoglobin [Mass/volume] in BloodOrdered By: Aman Cortes on 05-18-2022 Hemoglobin (Bld) [Mass/Vol] 13.0 g/dL 11.8-15.4 [facility] - Hematology and Cell countsOrdered By: Aman Cortes on 05-18-2022 Nucleated RBC/100 WBC (Bld) [Ratio] 0.1 % 0-0.5 [facility] Leukocytes [#/volume] in Blo od by Automated countOrdered By: Aman Cortes on 05-18-2022 WBC (Bld) [#/Vol] 5.6 10*3/uL 4.5-11.0 [facility] Lymphocytes Auto (Bld) [#/Vo l]Ordered By: Aman Cortes on 05-18-2022 Lymphocytes (Bld) [#/Vol] 2.0 10*3/uL 1.00-4.8 [facility] Lymphocytes/100 WBC Auto (Bl d)Ordered By: Aman Cortes on 05-18-2022 Lymphocytes/100 WBC (Bld) 36.8 % . [facility] MCH Auto (RBC) [Entitic mass ]Ordered By: Aman Cortes on 05-18-2022 MCH (RBC) [Entitic mass] 28.6 pg 24.7-34.3 [facility] MCHC Auto (RBC) [Mass/Vol]Or dered By: Aman Cortes on 05-18-2022 MCHC (RBC) [Mass/Vol] 32.3 g/dL 32.0-35.0 [facility] MCV Auto (RBC) [Entitic vol] Ordered By: Aman Cortes on 05-18-2022 MCV (RBC) [Entitic vol] 88.4 fL 80-100 [facility] Monocytes Auto (Bld) [#/Vol] Ordered By: Aman Cortes on 05-18-2022 Monocytes (Bld) [#/Vol] 0.4 10*3/uL 0.0-0.8 [facility] Monocytes/100 WBC Auto (Bld) Ordered By: Aman Cortes on 05-18-2022 Monocytes/100 WBC (Bld) 7.3 % . [facility] Neutrophils Auto (Bld) [#/Vo l]Ordered By: Aman Cortes on 05-18-2022 Neutrophils (Bld) [#/Vol] 3.0 10*3/uL 1.8-7.7 [facility] Neutrophils/100 WBC Auto (Bl d)Ordered By: Aman Cortes on 05-18-2022 Neutrophils/100 WBC (Bld) 54.7 % . [facility] No Panel InformationOrdered By: Aman Cortes on 05-18-2022 Estimated GFR () > 60 mL/Min [facility] Comment on above: GFR estimated refere nce range: According to KDOQI guidelines, <60 ml/min/1.73m2 is sufficient to diagnose a patient with chronic kidney disease. Pharmacy Creatinine Clearance (Chem 92.05 [facility] Platelet mean volume Auto (B ld) [Entitic vol]Ordered By: Aman Cortes on 05-18-2022 Platelet mean volume (Bld) [Entitic vol] 8.1 fL 6.3-10.7 [facility] Platelets Auto (Bld) [#/Vol] Ordered By: Aman Cortes on 05-18-2022 Platelets (Bld) [#/Vol] 268 10*3/uL 150-450 [facility] Prolactin [Mass/volume] in S alexis or PlasmaOrdered By: Aman Cortes on 05-18-2022 Prolactin [Mass/Vol] 8.64 ng/mL 3.34-26.72 [facility] RBC Auto (Bld) [#/Vol]Ordere d By: Aman Cortes on 05-18-2022 RBC (Bld) [#/Vol] 4.57 10*6/uL 3.60-5.00 [facility] Serum or plasma anion gap de terminationOrdered By: Aman Cortes on 05-18-2022 Anion gap [Moles/Vol] 10.1 mmol/L 6.0-15.0 [facility] Serum or plasma calcium randi urement (mass/volume)Ordered By: Aman Cortes on 05-18-2022 Calcium [Mass/Vol] 9.0 mg/dL 8.2-10.2 [facility] Serum or plasma chloride melonie surement (moles/volume)Ordered By: Aman Cortes on 05-18-2022 Chloride [Moles/Vol] 103 mmol/L 95-114 [facility] Serum or plasma glucose randi urement (mass/volume)Ordered By: Aman Cortes on 05-18-2022 Glucose [Mass/Vol] 110 mg/dL 70-100 [facility] Comment on above: ADA recommended refe rence rangeRandom Glucose Reference Range is dependent on time and content of last meal. Glucose of more than 200 mg/dL in a nonstressed, ambulatory subject supports the diagnosis of Diabetes Mellitus. Serum or plasma potassium me asurement (moles/volume)Ordered By: Aman Cortes on 05-18-2022 Potassium [Moles/Vol] 3.8 mmol/L 3.5-5.1 [facility] Serum or plasma sodium measu rement (moles/volume)Ordered By: Aman Cortes on 05-18-2022 Sodium [Moles/Vol] 138 mmol/L 136-146 [facility] Serum or plasma total carbon dioxide measurement (moles/volume)Ordered By: Aman Cortes on 05-18-2022 CO2 [Moles/Vol] 28.7 mmol/L 22.0-30.0 [facility] Serum or plasma urea nitroge n measurement (mass/volume)Ordered By: Aman Cortes on 05-18-2022 Urea nitrogen [Mass/Vol] 10 mg/dL 9-23 [facility] CBC AUTO DIFFon 05-15-2022 BASO # 0.0 103/ul Normal 0.0-0.[address] [facility] Comment on above: Performed By: #### P REG, ACETON #### [facility] [address] [address] [address] Jovanni Maya Basophils/100 WBC (Bld) 0.3 % Normal 0.2-2.[address] [facility] Comment on above: Performed By: #### P REG, ACETON #### [facility] [address] [place] [address] Dr. Jovanni Maya EO # 0.0 103/ul Normal 0.0-0.[address] [facility] Comment on above: Performed By: #### P REG, ACETON #### [facility] [address] [place] [address] Dr. Jovanni Maya Eosinophils/100 WBC (Bld) 0.3 % Critically low 0.9-7.0 [facility] Comment on above: Performed By: #### P REG, ACETON #### [facility] [address] [place] [address] Dr. Jovanni Maya Erythrocyte distribution width (RBC) [Ratio] 13.1 % Normal 11.0-15.[address] [facility] Comment on above: Performed By: #### P REG, ACETON #### [facility] [address] [place] [address] Dr. Jovanni Maya Hematocrit (Bld) [Volume fraction] 39.5 % Normal 36.0-48.[address] [facility] Comment on above: Performed By: #### P REG, ACETON #### [facility] [address] [place] [address] Dr. Jovanni Maya Hemoglobin (Bld) [Mass/Vol] 13.5 g/dL Normal 12.0-16.[address] [facility] Comment on above: Performed By: #### P REG, ACETON #### [facility] [address] [place] [address] Dr. Jovanni Maya IG # 0.04 10e3/ul Critically high 0.00-0.03 [facility] Comment on above: Performed By: #### P REG, ACETON #### [facility] [address] [place] [address] Dr. Jovanni Maya IG % 0.4 % Normal 0.0-0.5 [facility] Comment on above: Performed By: #### P REG, ACETON #### [facility] [address] [place] [address] Dr. Jovanni Maya LYMPH # 1.9 103/ul Normal 1.2-3.[address] [facility] Comment on above: Performed By: #### P REG, ACETON #### [facility] [address] [place] [address] Dr. Jovanni Maya Lymphocytes/100 WBC (Bld) 17.4 % Critically low 20.5-60.[address] [facility] Comment on above: Performed By: #### P REG, ACETON #### [facility] [address] [place] [address] Dr. Jovanni Maya MANUAL DIFF REQ NO Normal [facility] Comment on above: Performed By: #### P REG, ACETON #### [facility] [address] [place] [address] Dr. Jovanni Maya MCH (RBC) [Entitic mass] 29.3 pg Normal 26.7-34.[address] [facility] Comment on above: Performed By: #### P REG, ACETON #### [facility] [address] [place] [address] Dr. Jovanni Maya MCHC (RBC) [Mass/Vol] 34.2 g/dL Normal 29.9-35.[address] [facility] Comment on above: Performed By: #### P REG, ACETON #### [facility] [address] [place] [address] Dr. Jovanni Maya MCV (RBC) [Entitic vol] 85.7 fL Normal 81.0-99.[address] [facility] Comment on above: Performed By: #### P REG, ACETON #### [facility] [address] [place] [address] Dr. Jovanni Maya MONO # 0.6 103/ul Normal 0.3-0.8 [facility] Comment on above: Performed By: #### P REG, ACETON #### [facility] [address] [place] [address] Dr. Jovanni Maya Monocytes/100 WBC (Bld) 5.0 % Normal 1.7-12.[address] [facility] Comment on above: Performed By: #### P REG, ACETON #### [facility] [address] [address] [address] Jovanni Maya NEUT # 8.4 103/ul Critically high 1.4-6.5 [facility] Comment on above: Performed By: #### P REG, ACETON #### [facility] [address] [place] [address] Dr. Jovanni Maya Neutrophils/100 WBC (Bld) 76.6 % Critically high 43.0-75.[address] [facility] Comment on above: Performed By: #### P REG, ACETON #### [facility] [address] [place] [address] Dr. Jovanni Maya Platelet mean volume (Bld) [Entitic vol] 10.5 fL Normal 9.5-13.[address] [facility] Comment on above: Performed By: #### P REG, ACETON #### [facility] [address] [place] [address] Dr. Jovanni Maya PLT 279 103/ul Normal 150-450 [facility] Comment on above: Performed By: #### P REG, ACETON #### [facility] [address] [place] [address] Dr. Jovanni Maya RBC 4.61 106/ul Normal 4.20-5.[address] [facility] Comment on above: Performed By: #### P REG, ACETON #### [facility] [address] [place] [address] Dr. Jovanni Maya WBC 11.0 103/ul Normal 4.0-11.[address] [facility] Comment on above: Performed By: #### P REG, ACETON #### [facility] [address] [place] [address] Dr. Jovanni Maya ER URINE PROFILEon 2 Bilirubin Ql (U) Negative Normal NEGATIVE [facility] Comment on above: Performed By: #### C MP, HSTROPN #### [facility] [address] [place] [address] Dr. Jovanni Maya Clarity (U) CLEAR Normal CLEAR [facility] Comment on above: Performed By: #### C MP, HSTROPN #### [facility] [address] [address] [address] Jovanni Maya Color (U) LT. YELLOW Normal YELLOW [facility] Comment on above: Performed By: #### C MP, HSTROPN #### [facility] [address] [address] [address] Jovanni Maya ERUAHD A micrscopic examina tion will be performed if indicated. Normal [facility] Comment on above: Performed By: #### C MP, HSTROPN #### [facility] [address] [address] [address] Jovanni Maya Glucose Ql (U) Negative Normal NEGATIVE [facility] Comment on above: Performed By: #### C MP, HSTROPN #### [facility] [address] [place] [address] Dr. Jovanni Maya Hemoglobin Ql (U) Negative Normal NEGATIVE [facility] Comment on above: Performed By: #### C MP, HSTROPN #### [facility] [address] [place] [address] Dr. Jovanni Maya Ketones Ql (U) Negative Normal NEGATIVE [facility] Comment on above: Performed By: #### C MP, HSTROPN #### [facility] [address] [place] [address] Dr. Jovanni Maya LEUKOCYTES Negative Normal NEGATIVE [facility] Comment on above: Performed By: #### C MP, HSTROPN #### [facility] [address] [address] [address] Jovanni Maya Nitrite Ql (U) Negative Normal NEGATIVE [facility] Comment on above: Performed By: #### C MP, HSTROPN #### [facility] [address] [address] [address] Jovanni Maya pH (U) 7.0 [pH] Normal 5-[address] [facility] Comment on above: Performed By: #### C MP, HSTROPN #### [facility] [address] [address] [address] Jovanni Maya SPEC GRAVITY 1.010 Normal 1.005-<=1.[address] [facility] Comment on above: Performed By: #### C DANIEL, HSTROPN #### [facility] [address] [place] [address] Dr. Jovanni Maya UA PROTEIN Negative Normal NEGATIVE/ TRACE [facility] Comment on above: Performed By: #### C DANIEL, HSTROPN #### [facility] [address] [address] [address] Jovanni Maya UR MICRO IND NOT INDICATED Normal [facility] Comment on above: Performed By: #### C DANIEL, HSTROPN #### [facility] [address] [place] [address] Dr. Jovanni Maya Urobilinogen Qn (U) 0.2 {Carlos A'U}/dL Normal 0.2 - 1. [address] [facility] [address] [facility] Comment on above: Performed By: #### C DANIEL, HSTROPN #### [facility] [address] [place] [address] Dr. Jovanni Maya PROF 14(COMP METB)on 022 Albumin [Mass/Vol] 3.6 g/dL Normal 3.4-5.0 [facility] Comment on above: Performed By: #### P REG, ACETON #### [facility] [address] [place] [address] Dr. Jovanni Maya Albumin/Globulin [Mass ratio] 1.2 {ratio} Normal [facility] Comment on above: Performed By: #### P REG, ACETON #### [facility] [address] [place] [address] Dr. Jovanni Maya ALP [Catalytic activity/Vol] 49 U/L Normal 46-116 [facility] Comment on above: Performed By: #### P REG, ACETON #### [facility] [address] [place] [address] Dr. Jovanni Maya ALT [Catalytic activity/Vol] 4 U/L Critically low 14-[address] [facility] Comment on above: Performed By: #### P REG, ACETON #### [facility] [address] [address] [address] Jovanni Maya Anion gap [Moles/Vol] 9.0 mmol/L Normal [facility] Comment on above: Performed By: #### P REG, ACETON #### [facility] [address] [place] [address] Dr. Jovanni Maya AST [Catalytic activity/Vol] 10 U/L Critically low 15-[address] [facility] Comment on above: Performed By: #### P REG, ACETON #### [facility] [address] [place] [address] Dr. Jovanni Maya Bilirubin [Mass/Vol] 0.4 mg/dL Normal 0.2-1.[address] [facility] Comment on above: Performed By: #### P REG, ACETON #### [facility] [address] [place] [address] Dr. Jovanni Maya Calcium [Mass/Vol] 8.2 mg/dL Critically low 8.5-10.1 [facility] Comment on above: Performed By: #### P REG, ACETON #### [facility] [address] [place] [address] Dr. Jovanni Maya Chloride [Moles/Vol] 107 mmol/L Normal 98-[address] [facility] Comment on above: Performed By: #### P REG, ACETON #### [facility] [address] [place] [address] Dr. Jovanni Maya CO2 [Moles/Vol] 25.8 mmol/L Normal 21.0-32.0 [facility] Comment on above: Performed By: #### P REG, ACETON #### [facility] [address] [place] [address] Dr. Jovanni Maya Creatinine [Mass/Vol] 0.73 mg/dL Normal 0.55-1.[address] [facility] Comment on above: Performed By: #### P REG, ACETON #### [facility] [address] [place] [address] Dr. Jovanni Maya EGFR-AF HAITIAN >60 Normal >=60 [facility] Comment on above: Performed By: #### P REG, ACETON #### [facility] [address] [address] [address] Jovanni Maya EGFR-NON AF HAITIAN >60 Normal >=[address] [facility] Comment on above: Performed By: #### P REG, ACETON #### [facility] [address] [address] [address] Jovanni Maya Globulin (S) [Mass/Vol] 3.0 g/dL Normal [facility] Comment on above: Performed By: #### P REG, ACETON #### [facility] [address] [place] [address] Dr. Jovanni Maya Glucose [Mass/Vol] 121 mg/dL Critically high 74-106 [facility] Comment on above: Performed By: #### P REG, ACETON #### [facility] [address] [place] [address] Dr. Jovanni Maya Potassium [Moles/Vol] 3.8 mmol/L Normal 3.5-5.[address] [facility] Comment on above: Performed By: #### P REG, ACETON #### [facility] [address] [place] [address] Dr. Jovanni Maya Protein [Mass/Vol] 6.6 g/dL Normal 6.4-8.2 [facility] Comment on above: Performed By: #### P REG, ACETON #### [facility] [address] [place] [address] Dr. Jovanni Maya Sodium [Moles/Vol] 138 mmol/L Normal 136-145 [facility] Comment on above: Performed By: #### P REG, ACETON #### [facility] [address] [place] [address] Dr. Jovanni Maya Urea nitrogen [Mass/Vol] 9.0 mg/dL Normal 7.0-18.[address] [facility] Comment on above: Performed By: #### P REG, ACETON #### [facility] [address] [place] [address] Dr. Jovanni Maya Urea nitrogen/Creatinine [Mass ratio] 12.3 mg/mg Normal [facility] Comment on above: Performed By: #### P REG, ACETON #### [facility] [address] [address] [address] Jovanni Maya Albumin [Mass/volume] in Ser um or PlasmaOrdered By: Luz Fiore on 04-22-2022 Albumin [Mass/Vol] 4.1 g/dL 3.2-5.5 [facility] Amphetamine Screen Ql (U)Ord ered By: Luz Fiore on 04-22-2022 Amphetamines Ql (U) Negative Negative [facility] Automated erythrocytes count in urine sediment (number/area)Ordered By: Luz Fiore on 04-22-2022 RBC Auto (Urine sed) [#/Area] 5-9 [HPF] 0-4 [facility] Automated leukocytes count i n urine sediment (number/area)Ordered By: Luz Fiore on 04-22-2022 WBC Auto (Urine sed) [#/Area] 1-2 [HPF] 0-4 [facility] Barbiturates [Presence] in U rineOrdered By: Luz Fiore on 04-22-2022 Barbiturates Ql (U) Negative Negative [facility] Basophils Auto (Bld) [#/Vol] Ordered By: Luz Fiore on 04-22-2022 Basophils (Bld) [#/Vol] 0.0 10*3/uL 0.0-0.2 [facility] Basophils/100 WBC Auto (Bld) Ordered By: Luz Fiore on 04-22-2022 Basophils/100 WBC (Bld) 0.4 % . [facility] Benzodiazepines [Presence] i n UrineOrdered By: Luz Fiore on 04-22-2022 Benzodiazepines Ql (U) Negative Negative [facility] Bilirubin Test strip Ql (U)O rdered By: Luz Fiore on 04-22-2022 Bilirubin Ql (U) Negative Negative [facility] Cannabinoids [Presence] in U rine by Screen methodOrdered By: Luz Fiore on 04-22-2022 Cannabinoids Screen Ql (U) Positive Negative [facility] Comment on above: These are unconfirme d results and should not be used for legal purposes. Drug Cut-Off Concentration: AMPH 1000 ng/mL DOMINIQUE 200 ng/mL BRICE 200 ng/mL COCM 300 ng/mL OP 300 ng/mL PCP 25 ng/mL THC 20 ng/mL Color Auto (U)Ordered By: Giovanni Fiore on 04-22-2022 Color (U) Yellow Yellow [facility] Creatinine and Glomerular fi ltration rate.predicted panel (S/P/Bld)Ordered By: Luz Fiore on 04-22-2022 Creatinine [Mass/Vol] 0.72 mg/dL 0.44-1.03 [facility] Eosinophils Auto (Bld) [#/Vo l]Ordered By: Luz Fiore on 04-22-2022 Eosinophils (Bld) [#/Vol] 0.0 10*3/uL 0.0-0.45 [facility] Eosinophils/100 WBC Auto (Bl d)Ordered By: Luz Fiore on 04-22-2022 Eosinophils/100 WBC (Bld) 0.6 % . [facility] Erythrocyte distribution wid th Auto (RBC) [Ratio]Ordered By: Luz Fiore on 04-22-2022 Erythrocyte distribution width (RBC) [Ratio] 14.6 % 11.9-15.3 [facility] Estimated glomerular filtrat ion rate (GFR) non- AmericanOrdered By: Luz Fiore on 04-22-2022 GFR/1.73 sq M.predicted among non-blacks MDRD (S/P/Bld) [Vol rate/Area] > 60 mL/Min [facility] Globulin Calc (S) [Mass/Vol] Ordered By: Luz Fiore on 04-22-2022 Globulin (S) [Mass/Vol] 3.2 g/dL [facility] Hematocrit Auto (Bld) [Volum e fraction]Ordered By: Luz Fiore on 04-22-2022 Hematocrit (Bld) [Volume fraction] 40.7 % 34.0-46.4 [facility] Hemoglobin [Mass/volume] in BloodOrdered By: Luz Fiore on 04-22-2022 Hemoglobin (Bld) [Mass/Vol] 13.4 g/dL 11.8-15.4 [facility] Ketones Auto test strip (U) [Mass/Vol]Ordered By: Luz Fiore on 04-22-2022 Ketones (U) [Mass/Vol] Negative Negative [facility] - Drug toxicology Ordered By: Luz Fiore on 04-22-2022 Opiates Ql (U) Negative Negative [facility] - Hematology and Cell countsOrdered By: Luz Fiore on 04-22-2022 Nucleated RBC/100 WBC (Bld) [Ratio] 0.1 % 0-0.5 [facility] - UrinalysisOrder ed By: Luz Fiore on 04-22-2022 Hyaline casts LM Ql (Urine sed) 0-8 [LPF] 0-8 [facility] Leukocytes [#/volume] in Blo od by Automated countOrdered By: Luz Fiore on 04-22-2022 WBC (Bld) [#/Vol] 7.2 10*3/uL 4.5-11.0 [facility] Lymphocytes Auto (Bld) [#/Vo l]Ordered By: Luz Fiore on 04-22-2022 Lymphocytes (Bld) [#/Vol] 2.2 10*3/uL 1.00-4.8 [facility] Lymphocytes/100 WBC Auto (Bl d)Ordered By: Luz Fiore on 04-22-2022 Lymphocytes/100 WBC (Bld) 30.1 % . [facility] MCH Auto (RBC) [Entitic mass ]Ordered By: Luz Fiore on 04-22-2022 MCH (RBC) [Entitic mass] 28.8 pg 24.7-34.3 [facility] MCHC Auto (RBC) [Mass/Vol]Or dered By: Luz Fiore on 04-22-2022 MCHC (RBC) [Mass/Vol] 32.9 g/dL 32.0-35.0 [facility] MCV Auto (RBC) [Entitic vol] Ordered By: Luz Fiore on 04-22-2022 MCV (RBC) [Entitic vol] 87.4 fL 80-100 [facility] Monocytes Auto (Bld) [#/Vol] Ordered By: Luz Fiore on 04-22-2022 Monocytes (Bld) [#/Vol] 0.5 10*3/uL 0.0-0.8 [facility] Monocytes/100 WBC Auto (Bld) Ordered By: Luz Fiore on 04-22-2022 Monocytes/100 WBC (Bld) 7.1 % . [facility] Neutrophils Auto (Bld) [#/Vo l]Ordered By: Luz Fiore on 04-22-2022 Neutrophils (Bld) [#/Vol] 4.4 10*3/uL 1.8-7.7 [facility] Neutrophils/100 WBC Auto (Bl d)Ordered By: Luz Fiore on 04-22-2022 Neutrophils/100 WBC (Bld) 61.8 % . [facility] Nitrite Test strip Ql (U)Ord ered By: Luz Fiore on 04-22-2022 Nitrite Ql (U) Negative Negative [facility] No Panel InformationOrdered By: Luz Fiore on 04-22-2022 Estimated GFR () > 60 mL/Min [facility] Comment on above: GFR estimated refere nce range: According to KDOQI guidelines, <60 ml/min/1.73m2 is sufficient to diagnose a patient with chronic kidney disease. Pharmacy Creatinine Clearance (Chem 94.05 [facility] Phencyclidine Screen Ql (U)O rdered By: Luz Fiore on 04-22-2022 Phencyclidine Ql (U) Negative Negative [facility] Platelet mean volume Auto (B ld) [Entitic vol]Ordered By: Luz Fiore on 04-22-2022 Platelet mean volume (Bld) [Entitic vol] 8.2 fL 6.3-10.7 [facility] Platelets Auto (Bld) [#/Vol] Ordered By: Luz Fiore on 04-22-2022 Platelets (Bld) [#/Vol] 268 10*3/uL 150-450 [facility] Protein Auto test strip (U) [Mass/Vol]Ordered By: Luz Fiore on 04-22-2022 Protein (U) [Mass/Vol] Negative Negative [facility] Protein [Mass/volume] in Ser um or PlasmaOrdered By: Luz Fiore on 04-22-2022 Protein [Mass/Vol] 7.3 g/dL 6.1-7.9 [facility] RBC Auto (Bld) [#/Vol]Ordere d By: Luz Fiore on 04-22-2022 RBC (Bld) [#/Vol] 4.66 10*6/uL 3.60-5.00 [facility] Serum or plasma alanine white otransferase measurement without P-5'-P (enzymatic activiOrdered By: Luz Fiore on 04-22-2022 ALT No additional P-5'-P [Catalytic activity/Vol] 10 U/L 1060 [facility] Serum or plasma albumin/glob ulin mass ratioOrdered By: Luz Fiore on 04-22-2022 Albumin/Globulin [Mass ratio] 1.3 {ratio} [facility] Serum or plasma alkaline ignacio sphatase measurement (enzymatic activity/volume)Ordered By: Luz Fiore on 04-22-2022 ALP [Catalytic activity/Vol] 49 U/L 32 [facility] Serum or plasma anion gap de terminationOrdered By: Luz Fiore on 04-22-2022 Anion gap [Moles/Vol] 11.7 mmol/L 6.0-15.0 [facility] Serum or plasma aspartate am inotransferase measurement (enzymatic activity/volume)Ordered By: Luz Fiore on 04-22-2022 AST [Catalytic activity/Vol] 17 U/L 10 [facility] Serum or plasma calcium randi urement (mass/volume)Ordered By: Luz Fiore on 04-22-2022 Calcium [Mass/Vol] 9.4 mg/dL 8.2-10.2 [facility] Serum or plasma chloride melonie surement (moles/volume)Ordered By: Luz Fiore on 04-22-2022 Chloride [Moles/Vol] 102 mmol/L 95-114 [facility] Serum or plasma glucose randi urement (mass/volume)Ordered By: Luz Fiore on 04-22-2022 Glucose [Mass/Vol] 101 mg/dL 70-100 [facility] Comment on above: ADA recommended refe rence rangeRandom Glucose Reference Range is dependent on time and content of last meal. Glucose of more than 200 mg/dL in a nonstressed, ambulatory subject supports the diagnosis of Diabetes Mellitus. Serum or plasma potassium me asurement (moles/volume)Ordered By: Luz Fiore on 04-22-2022 Potassium [Moles/Vol] 3.9 mmol/L 3.5-5.1 [facility] Serum or plasma sodium measu rement (moles/volume)Ordered By: Luz Fiore on 04-22-2022 Sodium [Moles/Vol] 139 mmol/L 136-146 [facility] Serum or plasma total biliru bin measurement (mass/volume)Ordered By: Luz Fiore on 04-22-2022 Bilirubin [Mass/Vol] 0.7 mg/dL 0.3-1.2 [facility] Serum or plasma total carbon dioxide measurement (moles/volume)Ordered By: Luz Fiore on 04-22-2022 CO2 [Moles/Vol] 29.2 mmol/L 22.0-30.0 [facility] Serum or plasma urea nitroge n measurement (mass/volume)Ordered By: Luz Fiore on 04-22-2022 Urea nitrogen [Mass/Vol] 6 mg/dL 9- [facility] Specific gravity Auto test s trip (U) [Rel density]Ordered By: Luz Fiore on 04-22-2022 Specific gravity (U) [Rel density] 1.017 1.001-1.030 [facility] Squamous epithelial cells de tection in urine sediment by light microscopyOrdered By: Luz Fiore on 04-22-2022 Epithelial cells.squamous LM Ql (Urine sed) 0-1 [HPF] 0-2 [facility] Urine bacteria detection by automated methodOrdered By: Luz Fiore on 04-22-2022 Bacteria Auto Ql (U) None seen None Seen [facility] Urine clarity by refractomet ry automatedOrdered By: Luz Fiore on 04-22-2022 Clarity Refractometry automated (U) Turbid Clear [facility] Urine cocaine detectionOrder ed By: Luz Fiore on 04-22-2022 Cocaine Ql (U) Negative Negative [facility] Urine glucose measurement by automated test strip (mass/volume)Ordered By: Luz Fiore on 04-22-2022 Glucose Auto test strip (U) [Mass/Vol] Normal mg/dL Normal [facility] Urine hemoglobin detection b y automated test stripOrdered By: Luz Fiore on 04-22-2022 Hemoglobin Auto test strip Ql (U) 2+ Negative [facility] Urine leukocyte esterase det ection by automated test stripOrdered By: Luz Fiore on 04-22-2022 Leukocyte esterase Auto test strip Ql (U) Negative Negative [facility] Urobilinogen Auto test strip (U) [Mass/Vol]Ordered By: Luz Fiore on 04-22-2022 Urobilinogen (U) [Mass/Vol] Normal mg/dL Normal [facility] Yeast detection in urine sed iment by light microscopyOrdered By: Luz Fiore on 04-22-2022 Yeast LM Ql (Urine sed) None seen [HPF] None Seen [facility] pH Auto test strip (U)Ordere d By: Luz Fiore on 04-22-2022 pH (U) 7.0 [pH] 5.0-9.0 [facility] Urine culture routineOrdered By: Luz Fiore on 04-07-2022 Bacteria identified Cx Nom (U) No Growth 2 Days [facility] Amphetamine Screen Ql (U)Ord ered By: Luz Fiore on 04-05-2022 Amphetamines Ql (U) Negative Negative [facility] Automated erythrocytes count in urine sediment (number/area)Ordered By: Luz Fiore on 04-05-2022 RBC Auto (Urine sed) [#/Area] 5-9 [HPF] 0-4 [facility] Automated leukocytes count i n urine sediment (number/area)Ordered By: Luz Fiore on 04-05-2022 WBC Auto (Urine sed) [#/Area] 5-9 [HPF] 0-4 [facility] Barbiturates [Presence] in U rineOrdered By: Luz Fiore on 04-05-2022 Barbiturates Ql (U) Negative Negative [facility] Basophils Auto (Bld) [#/Vol] Ordered By: Luz Fiore on 04-05-2022 Basophils (Bld) [#/Vol] 0.0 10*3/uL 0.0-0.2 [facility] Basophils/100 WBC Auto (Bld) Ordered By: Luz Fiore on 04-05-2022 Basophils/100 WBC (Bld) 0.5 % . [facility] Benzodiazepines [Presence] i n UrineOrdered By: Luz Fiore on 10-10-2022 Benzodiazepines Ql (U) Negative Negative [facility] Bilirubin Test strip Ql (U)O rdered By: Luz Fiore on 04-05-2022 Bilirubin Ql (U) Negative Negative [facility] Blood hemoglobin measurement (mass/volume)Ordered By: Luz Fiore on 04-05-2022 Hemoglobin (Bld) [Mass/Vol] 13.4 g/dL 11.8-15.4 [facility] Blood leukocytes automated c ount (number/volume)Ordered By: Luz Fiore on 04-05-2022 WBC (Bld) [#/Vol] 6.5 10*3/uL 4.5-11.0 [facility] Cannabinoids [Presence] in U rine by Screen methodOrdered By: Luz Fiore on 04-05-2022 Cannabinoids Screen Ql (U) Positive Negative [facility] Comment on above: These are unconfirme d results and should not be used for legal purposes. Drug Cut-Off Concentration: AMPH 1000 ng/mL DOMINIQUE 200 ng/mL BRICE 200 ng/mL COCM 300 ng/mL OP 300 ng/mL PCP 25 ng/mL THC 20 ng/mL Color Auto (U)Ordered By: Giovanni Fiore on 04-05-2022 Color (U) Yellow Yellow [facility] Creatinine and Glomerular fi ltration rate.predicted panel (S/P/Bld)Ordered By: Luz Fiore on 04-05-2022 Creatinine [Mass/Vol] 0.73 mg/dL 0.44-1.03 [facility] Eosinophils Auto (Bld) [#/Vo l]Ordered By: Luz Fiore on 04-05-2022 Eosinophils (Bld) [#/Vol] 0.0 10*3/uL 0.0-0.45 [facility] Eosinophils/100 WBC Auto (Bl d)Ordered By: Luz Fiore on 04-05-2022 Eosinophils/100 WBC (Bld) 0.5 % . [facility] Erythrocyte distribution wid th Auto (RBC) [Ratio]Ordered By: Luz Fiore on 04-05-2022 Erythrocyte distribution width (RBC) [Ratio] 14.2 % 11.9-15.3 [facility] Estimated glomerular filtrat ion rate (GFR) non- AmericanOrdered By: Luz Fiore on 04-05-2022 GFR/1.73 sq M.predicted among non-blacks MDRD (S/P/Bld) [Vol rate/Area] > 60 mL/Min [facility] HCG ( test) IA.rapi d Ql (U)Ordered By: Luz Fiore on 04-05-2022 HCG ( test) Ql (U) Negative [facility] Hematocrit Auto (Bld) [Volum e fraction]Ordered By: Luz Fiore on 04-05-2022 Hematocrit (Bld) [Volume fraction] 40.4 % 34.0-46.4 [facility] Ketones Auto test strip (U) [Mass/Vol]Ordered By: Luz Fiore on 04-05-2022 Ketones (U) [Mass/Vol] Negative Negative [facility] - Drug toxicology Ordered By: Luz Fiore on 04-05-2022 Opiates Ql (U) Negative Negative [facility] - Hematology and Cell countsOrdered By: Luz Fiore on 04-05-2022 Nucleated RBC/100 WBC (Bld) [Ratio] 0.1 % 0-0.5 [facility] - UrinalysisOrder ed By: Luz Fiore on 04-05-2022 Hyaline casts LM Ql (Urine sed) 0-8 [LPF] 0-8 [facility] Lymphocytes Auto (Bld) [#/Vo l]Ordered By: Luz Fiore on 04-05-2022 Lymphocytes (Bld) [#/Vol] 2.0 10*3/uL 1.00-4.8 [facility] Lymphocytes/100 WBC Auto (Bl d)Ordered By: Luz Fiore on 04-05-2022 Lymphocytes/100 WBC (Bld) 30.0 % . [facility] MCH Auto (RBC) [Entitic mass ]Ordered By: Luz Fiore on 04-05-2022 MCH (RBC) [Entitic mass] 28.8 pg 24.7-34.3 [facility] MCHC Auto (RBC) [Mass/Vol]Or dered By: Luz Fiore on 04-05-2022 MCHC (RBC) [Mass/Vol] 33.2 g/dL 32.0-35.0 [facility] MCV Auto (RBC) [Entitic vol] Ordered By: Luz Fiore on 04-05-2022 MCV (RBC) [Entitic vol] 86.6 fL 80-100 [facility] Monocytes Auto (Bld) [#/Vol] Ordered By: Luz Fiore on 04-05-2022 Monocytes (Bld) [#/Vol] 0.5 10*3/uL 0.0-0.8 [facility] Monocytes/100 WBC Auto (Bld) Ordered By: Luz Fiore on 04-05-2022 Monocytes/100 WBC (Bld) 7.0 % . [facility] Neutrophils Auto (Bld) [#/Vo l]Ordered By: Luz Fiore on 04-05-2022 Neutrophils (Bld) [#/Vol] 4.0 10*3/uL 1.8-7.7 [facility] Neutrophils/100 WBC Auto (Bl d)Ordered By: Luz Fiore on 04-05-2022 Neutrophils/100 WBC (Bld) 62.0 % . [facility] Nitrite Test strip Ql (U)Ord ered By: Luz Fiore on 04-05-2022 Nitrite Ql (U) Negative Negative [facility] No Panel InformationOrdered By: Luz Fiore on 04-05-2022 Estimated GFR () > 60 mL/Min [facility] Comment on above: GFR estimated refere nce range: According to KDOQI guidelines, <60 ml/min/1.73m2 is sufficient to diagnose a patient with chronic kidney disease. Pharmacy Creatinine Clearance (Chem 92.76 [facility] Phencyclidine Screen Ql (U)O rdered By: Luz Fiore on 04-05-2022 Phencyclidine Ql (U) Negative Negative [facility] Platelet mean volume Auto (B ld) [Entitic vol]Ordered By: Luz Fiore on 04-05-2022 Platelet mean volume (Bld) [Entitic vol] 7.8 fL 6.3-10.7 [facility] Platelets Auto (Bld) [#/Vol] Ordered By: Luz Fiore on 04-05-2022 Platelets (Bld) [#/Vol] 278 10*3/uL 150-450 [facility] Protein Auto test strip (U) [Mass/Vol]Ordered By: Luz Fiore on 04-05-2022 Protein (U) [Mass/Vol] Negative Negative [facility] RBC Auto (Bld) [#/Vol]Ordere d By: Luz Fiore on 04-05-2022 RBC (Bld) [#/Vol] 4.66 10*6/uL 3.60-5.00 [facility] Serum or plasma anion gap de terminationOrdered By: Luz Fiore on 04-05-2022 Anion gap [Moles/Vol] 14.4 mmol/L 6.0-15.0 [facility] Serum or plasma calcium randi urement (mass/volume)Ordered By: Luz Fiore on 04-05-2022 Calcium [Mass/Vol] 9.5 mg/dL 8.2-10.2 [facility] Serum or plasma chloride melonie surement (moles/volume)Ordered By: Luz Fiore on 04-05-2022 Chloride [Moles/Vol] 100 mmol/L 95-114 [facility] Serum or plasma glucose randi urement (mass/volume)Ordered By: Luz Fiore on 04-05-2022 Glucose [Mass/Vol] 97 mg/dL 70-100 [facility] Comment on above: ADA recommended refe rence rangeRandom Glucose Reference Range is dependent on time and content of last meal. Glucose of more than 200 mg/dL in a nonstressed, ambulatory subject supports the diagnosis of Diabetes Mellitus. Serum or plasma potassium me asurement (moles/volume)Ordered By: Luz Fiore on 04-05-2022 Potassium [Moles/Vol] 4.1 mmol/L 3.5-5.1 [facility] Serum or plasma sodium measu rement (moles/volume)Ordered By: Luz Fiore on 04-05-2022 Sodium [Moles/Vol] 139 mmol/L 136-146 [facility] Serum or plasma total carbon dioxide measurement (moles/volume)Ordered By: Luz Fiore on 04-05-2022 CO2 [Moles/Vol] 28.7 mmol/L 22.0-30.0 [facility] Serum or plasma urea nitroge n measurement (mass/volume)Ordered By: Luz Fiore on 04-05-2022 Urea nitrogen [Mass/Vol] 7 mg/dL 9- [facility] Specific gravity Auto test s trip (U) [Rel density]Ordered By: Luz Fiore on 04-05-2022 Specific gravity (U) [Rel density] 1.011 1.001-1.030 [facility] Squamous epithelial cells de tection in urine sediment by light microscopyOrdered By: Luz Fiore on 04-05-2022 Epithelial cells.squamous LM Ql (Urine sed) 1-2 [HPF] 0-2 [facility] Urine bacteria detection by automated methodOrdered By: Luz Fiore on 04-05-2022 Bacteria Auto Ql (U) None seen None Seen [facility] Urine clarity by refractomet ry automatedOrdered By: Luz Fiore on 04-05-2022 Clarity Refractometry automated (U) Cloudy Clear [facility] Urine cocaine detectionOrder ed By: Luz Fiore on 04-05-2022 Cocaine Ql (U) Negative Negative [facility] Urine glucose measurement by automated test strip (mass/volume)Ordered By: Luz Fiore on 04-05-2022 Glucose Auto test strip (U) [Mass/Vol] Normal mg/dL Normal [facility] Urine hemoglobin detection b y automated test stripOrdered By: Luz Fiore on 04-05-2022 Hemoglobin Auto test strip Ql (U) Trace Negative [facility] Urine leukocyte esterase det ection by automated test stripOrdered By: Luz Fiore on 04-05-2022 Leukocyte esterase Auto test strip Ql (U) 1+ Negative [facility] Urobilinogen Auto test strip (U) [Mass/Vol]Ordered By: Luz Fiore on 04-05-2022 Urobilinogen (U) [Mass/Vol] Normal mg/dL Normal [facility] pH Auto test strip (U)Ordere d By: Luz Fiore on 04-05-2022 pH (U) 7.0 [pH] 5.0-9.0 [facility] Urine culture routineOrdered By: Mario Alberto Jose on 04-01-2022 Bacteria identified Cx Nom (U) 2 Days [facility] Automated erythrocytes count in urine sediment (number/area)Ordered By: Mario Alberto Jose on 03-30-2022 RBC Auto (Urine sed) [#/Area] 5-9 [HPF] 0-4 [facility] Automated leukocytes count i n urine sediment (number/area)Ordered By: Mario Alberto Jose on 03-30-2022 WBC Auto (Urine sed) [#/Area] 5-9 [HPF] 0-4 [facility] Basophils Auto (Bld) [#/Vol] Ordered By: Mario Alberto Jose on 03-30-2022 Basophils (Bld) [#/Vol] 0.0 10*3/uL 0.0-0.2 [facility] Basophils/100 WBC Auto (Bld) Ordered By: Mario Alberto Jose on 03-30-2022 Basophils/100 WBC (Bld) 0.4 % . [facility] Bilirubin Test strip Ql (U)O rdered By: Mario Alberto Jose on 03-30-2022 Bilirubin Ql (U) Negative Negative [facility] Blood hemoglobin measurement (mass/volume)Ordered By: Mario Alberto Jose on 03-30-2022 Hemoglobin (Bld) [Mass/Vol] 14.6 g/dL 11.8-15.4 [facility] Blood leukocytes automated c ount (number/volume)Ordered By: Mario Alberto Jose on 03-30-2022 WBC (Bld) [#/Vol] 7.6 10*3/uL 4.5-11.0 [facility] Color Auto (U)Ordered By: Sushma Jose on 03-30-2022 Color (U) Yellow Yellow [facility] Creatinine and Glomerular fi ltration rate.predicted panel (S/P/Bld)Ordered By: Mario Alberto Jose on 03-30-2022 Creatinine [Mass/Vol] 0.80 mg/dL 0.44-1.03 [facility] Eosinophils Auto (Bld) [#/Vo l]Ordered By: Mario Alberto Jose on 03-30-2022 Eosinophils (Bld) [#/Vol] 0.1 10*3/uL 0.0-0.45 [facility] Eosinophils/100 WBC Auto (Bl d)Ordered By: Mario Alberto Jose on 03-30-2022 Eosinophils/100 WBC (Bld) 0.8 % . [facility] Erythrocyte distribution wid th Auto (RBC) [Ratio]Ordered By: Mario Alberto Jose on 03-30-2022 Erythrocyte distribution width (RBC) [Ratio] 14.4 % 11.9-15.3 [facility] Estimated glomerular filtrat ion rate (GFR) non- AmericanOrdered By: Mario Alberto Jose on 03-30-2022 GFR/1.73 sq M.predicted among non-blacks MDRD (S/P/Bld) [Vol rate/Area] > 60 mL/Min [facility] Hematocrit Auto (Bld) [Volum e fraction]Ordered By: Mario Alberto Jose on 03-30-2022 Hematocrit (Bld) [Volume fraction] 43.8 % 34.0-46.4 [facility] Ketones Auto test strip (U) [Mass/Vol]Ordered By: Mario Alberto Jose on 03-30-2022 Ketones (U) [Mass/Vol] Negative Negative [facility] - Hematology and Cell countsOrdered By: Mario Alberto Jose on 03-30-2022 Nucleated RBC/100 WBC (Bld) [Ratio] 0.1 % 0-0.5 [facility] - UrinalysisOrder ed By: Mario Alberto Jose on 03-30-2022 Hyaline casts LM Ql (Urine sed) 0-8 [LPF] 0-8 [facility] Lymphocytes Auto (Bld) [#/Vo l]Ordered By: Mario Alberto Jose on 03-30-2022 Lymphocytes (Bld) [#/Vol] 2.4 10*3/uL 1.00-4.8 [facility] Lymphocytes/100 WBC Auto (Bl d)Ordered By: Mario Alberto Jose on 03-30-2022 Lymphocytes/100 WBC (Bld) 31.6 % . [facility] MCH Auto (RBC) [Entitic mass ]Ordered By: Mario Alberto Jose on 03-30-2022 MCH (RBC) [Entitic mass] 28.9 pg 24.7-34.3 [facility] MCHC Auto (RBC) [Mass/Vol]Or dered By: Mario Alberto Jose on 03-30-2022 MCHC (RBC) [Mass/Vol] 33.4 g/dL 32.0-35.0 [facility] MCV Auto (RBC) [Entitic vol] Ordered By: Mario Alberto Jose on 03-30-2022 MCV (RBC) [Entitic vol] 86.6 fL 80-100 [facility] Monocytes Auto (Bld) [#/Vol] Ordered By: Mario Alberto Jose on 03-30-2022 Monocytes (Bld) [#/Vol] 0.5 10*3/uL 0.0-0.8 [facility] Monocytes/100 WBC Auto (Bld) Ordered By: Mario Alberto Jose on 03-30-2022 Monocytes/100 WBC (Bld) 7.0 % . [facility] Neutrophils Auto (Bld) [#/Vo l]Ordered By: Mario Alberto Jose on 03-30-2022 Neutrophils (Bld) [#/Vol] 4.6 10*3/uL 1.8-7.7 [facility] Neutrophils/100 WBC Auto (Bl d)Ordered By: Mario Alberto Jose on 03-30-2022 Neutrophils/100 WBC (Bld) 60.2 % . [facility] Nitrite Test strip Ql (U)Ord ered By: Mario Alberto Jose on 03-30-2022 Nitrite Ql (U) Negative Negative [facility] No Panel InformationOrdered By: Mario Alberto Jose on 03-30-2022 Estimated GFR () > 60 mL/Min [facility] Comment on above: GFR estimated refere nce range: According to KDOQI guidelines, <60 ml/min/1.73m2 is sufficient to diagnose a patient with chronic kidney disease. Pharmacy Creatinine Clearance (Chem 84.65 [facility] Platelet mean volume Auto (B ld) [Entitic vol]Ordered By: Mario Alberto Jose on 03-30-2022 Platelet mean volume (Bld) [Entitic vol] 8.4 fL 6.3-10.7 [facility] Platelets Auto (Bld) [#/Vol] Ordered By: Mario Alberto Jose on 03-30-2022 Platelets (Bld) [#/Vol] 286 10*3/uL 150-450 [facility] Protein Auto test strip (U) [Mass/Vol]Ordered By: Mario Alberto Jose on 03-30-2022 Protein (U) [Mass/Vol] Negative Negative [facility] RBC Auto (Bld) [#/Vol]Ordere d By: Mario Alberto Jose on 03-30-2022 RBC (Bld) [#/Vol] 5.05 10*6/uL 3.60-5.00 [facility] Serum or plasma anion gap de terminationOrdered By: Mario Alberto Jose on 03-30-2022 Anion gap [Moles/Vol] 15.0 mmol/L 6.0-15.0 [facility] Serum or plasma calcium randi urement (mass/volume)Ordered By: Mario Alberto Jose on 03-30-2022 Calcium [Mass/Vol] 9.9 mg/dL 8.2-10.2 [facility] Serum or plasma chloride melonie surement (moles/volume)Ordered By: Mario Alebrto Jose on 03-30-2022 Chloride [Moles/Vol] 100 mmol/L 95-114 [facility] Serum or plasma glucose randi urement (mass/volume)Ordered By: Mario Alberto Jose on 03-30-2022 Glucose [Mass/Vol] 104 mg/dL 70-100 [facility] Comment on above: ADA recommended refe rence rangeRandom Glucose Reference Range is dependent on time and content of last meal. Glucose of more than 200 mg/dL in a nonstressed, ambulatory subject supports the diagnosis of Diabetes Mellitus. Serum or plasma potassium me asurement (moles/volume)Ordered By: Mario Alberto Jose on 03-30-2022 Potassium [Moles/Vol] 4.1 mmol/L 3.5-5.1 [facility] Serum or plasma sodium measu rement (moles/volume)Ordered By: Mario Alberto Jose on 03-30-2022 Sodium [Moles/Vol] 138 mmol/L 136-146 [facility] Serum or plasma total carbon dioxide measurement (moles/volume)Ordered By: Mario Alberto Jose on 03-30-2022 CO2 [Moles/Vol] 27.1 mmol/L 22.0-30.0 [facility] Serum or plasma urea nitroge n measurement (mass/volume)Ordered By: Mario Alberto Jose on 03-30-2022 Urea nitrogen [Mass/Vol] 10 mg/dL 9-23 [facility] Specific gravity Auto test s trip (U) [Rel density]Ordered By: Mario Alberto Jose on 03-30-2022 Specific gravity (U) [Rel density] 1.007 1.001-1.030 [facility] Squamous epithelial cells de tection in urine sediment by light microscopyOrdered By: Mario Alberto Jose on 03-30-2022 Epithelial cells.squamous LM Ql (Urine sed) 3-4 [HPF] 0-2 [facility] Urine bacteria detection by automated methodOrdered By: Mario Alberto Jose on 03-30-2022 Bacteria Auto Ql (U) 1+ None Seen [facility] Urine clarity by refractomet ry automatedOrdered By: Mario Alberto Jose on 03-30-2022 Clarity Refractometry automated (U) Clear Clear [facility] Urine glucose measurement by automated test strip (mass/volume)Ordered By: Mario Alberto Jose on 03-30-2022 Glucose Auto test strip (U) [Mass/Vol] Normal mg/dL Normal [facility] Urine hemoglobin detection b y automated test stripOrdered By: Mario Alberto Jose on 03-30-2022 Hemoglobin Auto test strip Ql (U) Negative Negative [facility] Urine leukocyte esterase det ection by automated test stripOrdered By: Mario Alberto Jose on 03-30-2022 Leukocyte esterase Auto test strip Ql (U) 1+ Negative [facility] Urobilinogen Auto test strip (U) [Mass/Vol]Ordered By: Mario Alberto Jose on 03-30-2022 Urobilinogen (U) [Mass/Vol] Normal mg/dL Normal [facility] pH Auto test strip (U)Ordere d By: Mario Alberto Jose on 03-30-2022 pH (U) 7.5 [pH] 5.0-9.0 [facility] Albumin [Mass/volume] in Ser um or PlasmaOrdered By: Los Mcnally on 03-19-2022 Albumin [Mass/Vol] 4.8 g/dL 3.2-5.5 [facility] Basophils Auto (Bld) [#/Vol] Ordered By: Los Mcnally on 03-19-2022 Basophils (Bld) [#/Vol] 0.0 10*3/uL 0.0-0.2 [facility] Basophils/100 WBC Auto (Bld) Ordered By: Los Mcnally on 03-19-2022 Basophils/100 WBC (Bld) 0.6 % . [facility] Blood hemoglobin measurement (mass/volume)Ordered By: Los Mcnally on 03-19-2022 Hemoglobin (Bld) [Mass/Vol] 14.3 g/dL 11.8-15.4 [facility] Blood leukocytes automated c ount (number/volume)Ordered By: Los Mcnally on 03-19-2022 WBC (Bld) [#/Vol] 7.5 10*3/uL 4.5-11.0 [facility] Creatinine and Glomerular fi ltration rate.predicted panel (S/P/Bld)Ordered By: Los Mcnally on 03-19-2022 Creatinine [Mass/Vol] 0.91 mg/dL 0.44-1.03 [facility] Eosinophils Auto (Bld) [#/Vo l]Ordered By: Los Mcnally on 03-19-2022 Eosinophils (Bld) [#/Vol] 0.1 10*3/uL 0.0-0.45 [facility] Eosinophils/100 WBC Auto (Bl d)Ordered By: Los Mcnally on 03-19-2022 Eosinophils/100 WBC (Bld) 1.4 % . [facility] Erythrocyte distribution wid th Auto (RBC) [Ratio]Ordered By: Los Mcnally on 03-19-2022 Erythrocyte distribution width (RBC) [Ratio] 14.9 % 11.9-15.3 [facility] Estimated glomerular filtrat ion rate (GFR) non- AmericanOrdered By: Los Mcnally on 03-19-2022 GFR/1.73 sq M.predicted among non-blacks MDRD (S/P/Bld) [Vol rate/Area] > 60 mL/Min [facility] Globulin Calc (S) [Mass/Vol] Ordered By: Los Mcnally on 03-19-2022 Globulin (S) [Mass/Vol] 3.6 g/dL [facility] Hematocrit Auto (Bld) [Volum e fraction]Ordered By: Los Mcnally on 03-19-2022 Hematocrit (Bld) [Volume fraction] 43.6 % 34.0-46.4 [facility] - Hematology and Cell countsOrdered By: Los Mcnally on 03-19-2022 Nucleated RBC/100 WBC (Bld) [Ratio] 0.0 % 0-0.5 [facility] Lymphocytes Auto (Bld) [#/Vo l]Ordered By: Los Mcnally on 03-19-2022 Lymphocytes (Bld) [#/Vol] 2.6 10*3/uL 1.00-4.8 [facility] Lymphocytes/100 WBC Auto (Bl d)Ordered By: Los Mcnally on 03-19-2022 Lymphocytes/100 WBC (Bld) 34.0 % . [facility] MCH Auto (RBC) [Entitic mass ]Ordered By: Los Mcnally on 03-19-2022 MCH (RBC) [Entitic mass] 29.1 pg 24.7-34.3 [facility] MCHC Auto (RBC) [Mass/Vol]Or dered By: Los Mcnally on 03-19-2022 MCHC (RBC) [Mass/Vol] 32.8 g/dL 32.0-35.0 [facility] MCV Auto (RBC) [Entitic vol] Ordered By: Los Mcnally on 03-19-2022 MCV (RBC) [Entitic vol] 88.6 fL 80-100 [facility] Monocytes Auto (Bld) [#/Vol] Ordered By: Los Mcnally on 03-19-2022 Monocytes (Bld) [#/Vol] 0.5 10*3/uL 0.0-0.8 [facility] Monocytes/100 WBC Auto (Bld) Ordered By: Los Mcnally on 03-19-2022 Monocytes/100 WBC (Bld) 6.9 % . [facility] Neutrophils Auto (Bld) [#/Vo l]Ordered By: Los Mcnally on 03-19-2022 Neutrophils (Bld) [#/Vol] 4.3 10*3/uL 1.8-7.7 [facility] Neutrophils/100 WBC Auto (Bl d)Ordered By: Los Mcnally on 03-19-2022 Neutrophils/100 WBC (Bld) 57.1 % . [facility] No Panel InformationOrdered By: Los Mcnally on 03-19-2022 Estimated GFR () > 60 mL/Min [facility] Comment on above: GFR estimated refere nce range: According to KDOQI guidelines, <60 ml/min/1.73m2 is sufficient to diagnose a patient with chronic kidney disease. Pharmacy Creatinine Clearance (Chem 74.41 [facility] Platelet mean volume Auto (B ld) [Entitic vol]Ordered By: Los Mcnally on 03-19-2022 Platelet mean volume (Bld) [Entitic vol] 8.9 fL 6.3-10.7 [facility] Platelets Auto (Bld) [#/Vol] Ordered By: Los Mcnally on 03-19-2022 Platelets (Bld) [#/Vol] 266 10*3/uL 150-450 [facility] Prolactin [Mass/volume] in S alexis or PlasmaOrdered By: Los Mcnally on 03-19-2022 Prolactin [Mass/Vol] 18.55 ng/mL 3.34-26.72 [facility] Protein [Mass/volume] in Ser um or PlasmaOrdered By: Los Mcnally on 03-19-2022 Protein [Mass/Vol] 8.4 g/dL 6.1-7.9 [facility] RBC Auto (Bld) [#/Vol]Ordere d By: Los Mcnally on 03-19-2022 RBC (Bld) [#/Vol] 4.92 10*6/uL 3.60-5.00 [facility] Serum or plasma alanine white otransferase measurement without P-5'-P (enzymatic activiOrdered By: Los Mcnally on 03-19-2022 ALT No additional P-5'-P [Catalytic activity/Vol] 11 U/L 10-60 [facility] Serum or plasma albumin/glob ulin mass ratioOrdered By: Los Mcnally on 03-19-2022 Albumin/Globulin [Mass ratio] 1.3 {ratio} [facility] Serum or plasma alkaline ignacio sphatase measurement (enzymatic activity/volume)Ordered By: Los Mcnally on 03-19-2022 ALP [Catalytic activity/Vol] 51 U/L 32-92 [facility] Serum or plasma anion gap de terminationOrdered By: Los Mcnally on 03-19-2022 Anion gap [Moles/Vol] 17.7 mmol/L 6.0-15.0 [facility] Serum or plasma aspartate am inotransferase measurement (enzymatic activity/volume)Ordered By: Los Mcnally on 03-19-2022 AST [Catalytic activity/Vol] 22 U/L 10-42 [facility] Serum or plasma calcium randi urement (mass/volume)Ordered By: Los Mcnally on 03-19-2022 Calcium [Mass/Vol] 9.8 mg/dL 8.2-10.2 [facility] Serum or plasma chloride melonie surement (moles/volume)Ordered By: Los Mcnally on 03-19-2022 Chloride [Moles/Vol] 101 mmol/L 95-114 [facility] Serum or plasma glucose randi urement (mass/volume)Ordered By: Los Mcnally on 03-19-2022 Glucose [Mass/Vol] 83 mg/dL 70-100 [facility] Comment on above: ADA recommended refe rence [...] on 03-19-2022 Potassium [Moles/Vol] 3.7 mmol/L 3.5-5.1 [facility] Serum or plasma sodium measu rement (moles/volume)Ordered By: Los Mcnally on 03-19-2022 Sodium [Moles/Vol] 138 mmol/L 136-146 [facility] Serum or plasma total biliru bin measurement (mass/volume)Ordered By: Los Mcnally on 03-19-2022 Bilirubin [Mass/Vol] 0.7 mg/dL 0.3-1.2 [facility] Serum or plasma total carbon dioxide measurement (moles/volume)Ordered By: Los Mcnally on 03-19-2022 CO2 [Moles/Vol] 23.0 mmol/L 22.0-30.0 [facility] Serum or plasma urea nitroge n measurement (mass/volume)Ordered By: Los Mcnally on 03-19-2022 Urea nitrogen [Mass/Vol] 8 mg/dL 03-19 [facility] Albumin [Mass/volume] in Ser um or PlasmaOrdered By: Tommy Bowen on 02-25-2022 Albumin [Mass/Vol] 4.1 g/dL 3.2-5.5 [facility] Basophils Auto (Bld) [#/Vol] Ordered By: Tommy Bowen on 02-25-2022 Basophils (Bld) [#/Vol] 0.0 10*3/uL 0.0-0.2 [facility] Basophils/100 WBC Auto (Bld) Ordered By: Tommy Bowen on 02-25-2022 Basophils/100 WBC (Bld) 0.5 % . [facility] Blood hemoglobin measurement (mass/volume)Ordered By: Tommy Bowen on 02-25-2022 Hemoglobin (Bld) [Mass/Vol] 13.4 g/dL 11.8-15.4 [facility] Blood leukocytes automated c ount (number/volume)Ordered By: Tommy Bowen on 02-25-2022 WBC (Bld) [#/Vol] 8.0 10*3/uL 4.5-11.0 [facility] Creatinine and Glomerular fi ltration rate.predicted panel (S/P/Bld)Ordered By: Tommy Bowen on 02-25-2022 Creatinine [Mass/Vol] 0.75 mg/dL 0.44-1.03 [facility] Eosinophils Auto (Bld) [#/Vo l]Ordered By: Tommy Bowen on 02-25-2022 Eosinophils (Bld) [#/Vol] 0.1 10*3/uL 0.0-0.45 [facility] Eosinophils/100 WBC Auto (Bl d)Ordered By: Tommy Bowen on 02-25-2022 Eosinophils/100 WBC (Bld) 0.6 % . [facility] Erythrocyte distribution wid th Auto (RBC) [Ratio]Ordered By: Tommy Bowen on 02-25-2022 Erythrocyte distribution width (RBC) [Ratio] 14.2 % 11.9-15.3 [facility] Estimated glomerular filtrat ion rate (GFR) non- AmericanOrdered By: Tommy Bowen on 02-25-2022 GFR/1.73 sq M.predicted among non-blacks MDRD (S/P/Bld) [Vol rate/Area] > 60 mL/Min [facility] Globulin Calc (S) [Mass/Vol] Ordered By: Tommy Bowen on 02-25-2022 Globulin (S) [Mass/Vol] 3.2 g/dL [facility] Hematocrit Auto (Bld) [Volum e fraction]Ordered By: Tommy Bowen on 02-25-2022 Hematocrit (Bld) [Volume fraction] 41.0 % 34.0-46.4 [facility] - Hematology and Cell countsOrdered By: Tommy Bowen on 02-25-2022 Nucleated RBC/100 WBC (Bld) [Ratio] 0.0 % 0-0.5 [facility] Lymphocytes Auto (Bld) [#/Vo l]Ordered By: Tommy Bowen on 02-25-2022 Lymphocytes (Bld) [#/Vol] 2.0 10*3/uL 1.00-4.8 [facility] Lymphocytes/100 WBC Auto (Bl d)Ordered By: Tommy Bowen on 02-25-2022 Lymphocytes/100 WBC (Bld) 25.6 % . [facility] MCH Auto (RBC) [Entitic mass ]Ordered By: Tommy Bowen on 02-25-2022 MCH (RBC) [Entitic mass] 28.7 pg 24.7-34.3 [facility] MCHC Auto (RBC) [Mass/Vol]Or dered By: Tommy Bowen on 02-25-2022 MCHC (RBC) [Mass/Vol] 32.7 g/dL 32.0-35.0 [facility] MCV Auto (RBC) [Entitic vol] Ordered By: Tommy Bowen on 02-25-2022 MCV (RBC) [Entitic vol] 87.8 fL 80-100 [facility] Monocytes Auto (Bld) [#/Vol] Ordered By: Tommy Bowen on 02-25-2022 Monocytes (Bld) [#/Vol] 0.6 10*3/uL 0.0-0.8 [facility] Monocytes/100 WBC Auto (Bld) Ordered By: Tommy Bowen on 02-25-2022 Monocytes/100 WBC (Bld) 7.4 % . [facility] Neutrophils Auto (Bld) [#/Vo l]Ordered By: Tommy Bowen on 02-25-2022 Neutrophils (Bld) [#/Vol] 5.2 10*3/uL 1.8-7.7 [facility] Neutrophils/100 WBC Auto (Bl d)Ordered By: Tommy Bowen on 02-25-2022 Neutrophils/100 WBC (Bld) 65.9 % . [facility] No Panel InformationOrdered By: Tommy Bowen on 02-25-2022 Estimated GFR () > 60 mL/Min [facility] Comment on above: GFR estimated refere nce range: According to KDOQI guidelines, <60 ml/min/1.73m2 is sufficient to diagnose a patient with chronic kidney disease. Pharmacy Creatinine Clearance (Chem 94.82 [facility] Platelet mean volume Auto (B ld) [Entitic vol]Ordered By: Tommy Bowen on 02-25-2022 Platelet mean volume (Bld) [Entitic vol] 8.1 fL 6.3-10.7 [facility] Platelets Auto (Bld) [#/Vol] Ordered By: Tommy Bowen on 02-25-2022 Platelets (Bld) [#/Vol] 260 10*3/uL 150-450 [facility] Protein [Mass/volume] in Ser um or PlasmaOrdered By: Tommy Bowen on 02-25-2022 Protein [Mass/Vol] 7.3 g/dL 6.1-7.9 [facility] RBC Auto (Bld) [#/Vol]Ordere d By: Tommy Bowen on 02-25-2022 RBC (Bld) [#/Vol] 4.67 10*6/uL 3.60-5.00 [facility] Serum or plasma alanine white otransferase measurement without P-5'-P (enzymatic activiOrdered By: Tommy Bowen on 02-25-2022 ALT No additional P-5'-P [Catalytic activity/Vol] 11 U/L 10-60 [facility] Serum or plasma albumin/glob ulin mass ratioOrdered By: Tommy Bowen on 02-25-2022 Albumin/Globulin [Mass ratio] 1.3 {ratio} [facility] Serum or plasma alkaline ignacio sphatase measurement (enzymatic activity/volume)Ordered By: Tommy Bowen on 02-25-2022 ALP [Catalytic activity/Vol] 52 U/L 32-92 [facility] Serum or plasma anion gap de terminationOrdered By: Tommy Bowen on 02-25-2022 Anion gap [Moles/Vol] 13.5 mmol/L 6.0-15.0 [facility] Serum or plasma aspartate am inotransferase measurement (enzymatic activity/volume)Ordered By: Tommy Bowen on 02-25-2022 AST [Catalytic activity/Vol] 18 U/L 10-42 [facility] Serum or plasma calcium randi urement (mass/volume)Ordered By: Tommy Bowen on 02-25-2022 Calcium [Mass/Vol] 9.6 mg/dL 8.2-10.2 [facility] Serum or plasma chloride melonie surement (moles/volume)Ordered By: Tommy Bowen on 02-25-2022 Chloride [Moles/Vol] 101 mmol/L 95-114 [facility] Serum or plasma glucose randi urement (mass/volume)Ordered By: Tommy Bowen on 02-25-2022 Glucose [Mass/Vol] 98 mg/dL 70-100 [facility] Comment on above: ADA recommended refe rence [...] on 02-25-2022 Potassium [Moles/Vol] 4.0 mmol/L 3.5-5.1 [facility] Serum or plasma sodium measu rement (moles/volume)Ordered By: Tommy Bowen on 02-25-2022 Sodium [Moles/Vol] 139 mmol/L 136-146 [facility] Serum or plasma total biliru bin measurement (mass/volume)Ordered By: Tommy Bowen on 02-25-2022 Bilirubin [Mass/Vol] 0.6 mg/dL 0.3-1.2 [facility] Serum or plasma total carbon dioxide measurement (moles/volume)Ordered By: Tommy Bowen on 02-25-2022 CO2 [Moles/Vol] 28.5 mmol/L 22.0-30.0 [facility] Serum or plasma urea nitroge n measurement (mass/volume)Ordered By: Tommy Bowen on 02-25-2022 Urea nitrogen [Mass/Vol] 7 mg/dL 9 [facility] CBC AUTO DIFFon 01-03-2022 BASO # 0.0 103/ul Normal 0.0-0.[address] [facility] Comment on above: Performed By: #### C BC #### [facility] [address] [place] [address] Dr. Jovanni Maya Basophils/100 WBC (Bld) 0.2 % Normal 0.2-2.[address] [facility] Comment on above: Performed By: #### C BC #### [facility] [address] [place] [address] Dr. Jovanni Maya EO # 0.0 103/ul Normal 0.0-0.[address] [facility] Comment on above: Performed By: #### C BC #### [facility] [address] [address] [address] Jovanni Maya Eosinophils/100 WBC (Bld) 0.1 % Critically low 0.9-7.[address] [facility] Comment on above: Performed By: #### C BC #### [facility] [address] [place] [address] Dr. Jovanni Maya Erythrocyte distribution width (RBC) [Ratio] 12.4 % Normal 11.0-15.[address] [facility] Comment on above: Performed By: #### C BC #### [facility] [address] [place] [address] Dr. Jovanni Maya Hematocrit (Bld) [Volume fraction] 39.2 % Normal 36.0-48.[address] [facility] Comment on above: Performed By: #### C BC #### [facility] [address] [place] [address] Dr. Jovanni Maya Hemoglobin (Bld) [Mass/Vol] 13.1 g/dL Normal 12.0-16.[address] [facility] Comment on above: Performed By: #### C BC #### [facility] [address] [place] [address] Dr. Jovanni Maya IG # 0.05 10e3/ul Critically high 0.00-0.03 [facility] Comment on above: Performed By: #### C BC #### [facility] [address] [place] [address] Dr. Jovanni Maya IG % 0.3 % Normal 0.0-0.[address] [facility] Comment on above: Performed By: #### C BC #### [facility] [address] [place] [address] Dr. Jovanni Maya LYMPH # 2.1 103/ul Normal 1.2-3.[address] [facility] Comment on above: Performed By: #### C BC #### [facility] [address] [place] [address] Dr. Jovanni Maya Lymphocytes/100 WBC (Bld) 14.3 % Critically low 20.5-60.[address] [facility] Comment on above: Performed By: #### C BC #### [facility] [address] [place] [address] Dr. Jovanni Maya MANUAL DIFF REQ NO Normal [facility] Comment on above: Performed By: #### C BC #### [facility] [address] [place] [address] Dr. Jovanni Maya MCH (RBC) [Entitic mass] 29.4 pg Normal 26.7-34.[address] [facility] Comment on above: Performed By: #### C BC #### [facility] [address] [place] [address] Dr. Jovanni Maya MCHC (RBC) [Mass/Vol] 33.4 g/dL Normal 29.9-35.2 [facility] Comment on above: Performed By: #### C BC #### [facility] [address] [address] [address] Jovanni Maya MCV (RBC) [Entitic vol] 87.9 fL Normal 81.0-99.[address] [facility] Comment on above: Performed By: #### C BC #### [facility] [address] [address] [address] Jovanni Maya MONO # 1.3 103/ul Critically high 0.3-0.8 [facility] Comment on above: Performed By: #### C BC #### [facility] [address] [address] [address] Jovanni Maya Monocytes/100 WBC (Bld) 8.4 % Normal 1.7-12.[address] [facility] Comment on above: Performed By: #### C BC #### [facility] [address] [address] [address] Jovanni Maya NEUT # 11.4 103/ul Critically high 1.4-6.5 [facility] Comment on above: Performed By: #### C BC #### [facility] [address] [address] [address] Jovanni Maya Neutrophils/100 WBC (Bld) 76.7 % Critically high 43.0-75.[address] [facility] Comment on above: Performed By: #### C BC #### [facility] [address] [address] [address] Jovanni Maya Platelet mean volume (Bld) [Entitic vol] 9.4 fL Critically low 9.5-13.[address] [facility] Comment on above: Performed By: #### C BC #### [facility] [address] [address] [address] Jovanni Maya PLT 276 103/ul Normal 150-450 [facility] Comment on above: Performed By: #### C BC #### [facility] [address] [place] [address] Dr. Jovanni Maya RBC 4.46 106/ul Normal 4.20-5.[address] [facility] Comment on above: Performed By: #### C BC #### [facility] [address] [place] [address] Dr. Jovanni Maya WBC 14.9 103/ul Critically high 4.0-11.0 [facility] Comment on above: Performed By: #### C BC #### [facility] [address] [place] [address] Dr. Jovanni Maya PROF CHEM 8 (BAS METB)on Anion gap [Moles/Vol] 14.2 mmol/L Normal [facility] Comment on above: Performed By: #### P REG, ACETON #### [facility] [address] [place] [address] Dr. Jovanni Maya Calcium [Mass/Vol] 9.3 mg/dL Normal 8.5-10.1 [facility] Comment on above: Performed By: #### P REG, ACETON #### [facility] [address] [place] [address] Dr. Jovanni Maya Chloride [Moles/Vol] 103 mmol/L Normal 98-[address] [facility] Comment on above: Performed By: #### P REG, ACETON #### [facility] [address] [place] [address] Dr. Jovanni Maya CO2 [Moles/Vol] 26.6 mmol/L Normal 21.0-32.0 [facility] Comment on above: Performed By: #### P REG, ACETON #### [facility] [address] [place] [address] Dr. Jovanni Maya Creatinine [Mass/Vol] 0.80 mg/dL Normal 0.55-1.[address] [facility] Comment on above: Performed By: #### P REG, ACETON #### [facility] [address] [place] [address] Dr. Jovanni Maya EGFR-AF HAITIAN >60 Normal >=60 [facility] Comment on above: Performed By: #### P REG, ACETON #### [facility] [address] [place] [address] Dr. Jovanni Maya EGFR-NON AF HAITIAN >60 Normal >=[address] [facility] Comment on above: Performed By: #### P REG, ACETON #### [facility] [address] [place] [address] [address] Jovanni Maya Glucose [Mass/Vol] 118 mg/dL Critically high 74-106 [facility] Comment on above: Performed By: #### P REG, ACETON #### [facility] [address] [place] [address] [address] Jovanni Maya Potassium [Moles/Vol] 3.8 mmol/L Normal 3.5-5.[address] [facility] Comment on above: Performed By: #### P REG, ACETON #### [facility] [address] [place] [address] [address] Jovanni Maya Sodium [Moles/Vol] 140 mmol/L Normal 136-145 [facility] Comment on above: Performed By: #### P REG, ACETON #### [facility] [address] [place] [address] [address] Jovanni Maya Urea nitrogen [Mass/Vol] 12.0 mg/dL Normal 7.0-18.[address] [facility] Comment on above: Performed By: #### P REG, ACETON #### [facility] [address] [place] [address] Dr. Jovanni Maya Urea nitrogen/Creatinine [Mass ratio] 15.0 mg/mg Normal [facility] Comment on above: Performed By: #### P REG, ACETON #### [facility] [address] [place] [address] Dr. Jovanni Maya XR CHEST 2 Von [...] by: FRED COLE Date: 2022-01-03 01:[address] [facility] CBC AUTO DIFFon 11-29-2021 BASO # 0.0 103/ul Normal 0.0-0.1 [facility] Comment on above: Performed By: #### C MP, HSTROPN #### [facility] [address] [place] [address] Dr. Jovanni Maya Basophils/100 WBC (Bld) 0.2 % Normal 0.2-2.0 [facility] Comment on above: Performed By: #### C MP, HSTROPN #### [facility] [address] [place] [address] Dr. Jovanni Maya EO # 0.2 103/ul Normal 0.0-0.7 [facility] Comment on above: Performed By: #### C DANIEL, HSTROPN #### [facility] [address] [place] [address] Dr. Jovanni Maya Eosinophils/100 WBC (Bld) 3.2 % Normal 0.9-7.0 [facility] Comment on above: Performed By: #### C DANIEL, HSTROPN #### [facility] [address] [place] [address] Dr. Jovanni Maya Erythrocyte distribution width (RBC) [Ratio] 12.2 % Normal 11.0-15.0 [facility] Comment on above: Performed By: #### C DANIEL, HSTROPN #### [facility] [address] [place] [address] Dr. Jovanni Maya Hematocrit (Bld) [Volume fraction] 34.3 % Critically low 36.0-48.0 [facility] Comment on above: Performed By: #### C MP, HSTROPN #### [facility] [address] [place] [address] Dr. Jovanni Maya Hemoglobin (Bld) [Mass/Vol] 11.4 g/dL Critically low 12.0-16.0 [facility] Comment on above: Performed By: #### C MP, HSTROPN #### [facility] [address] [place] [address] Dr. Jovanni Maya IG # 0.01 10e3/ul Normal 0.00-0.03 [facility] Comment on above: Performed By: #### C MP, HSTROPN #### [facility] [address] [place] [address] [address] Jovanni Maya IG % 0.2 % Normal 0.0-0.[address] [facility] Comment on above: Performed By: #### C MP, HSTROPN #### [facility] [address] [place] [address] Dr. Jovanni Maya LYMPH # 2.5 103/ul Normal 1.2-3.[address] [facility] Comment on above: Performed By: #### C MP, HSTROPN #### [facility] [address] [place] [address] Dr. Jovanni Maya Lymphocytes/100 WBC (Bld) 38.1 % Normal 20.5-60.[address] [facility] Comment on above: Performed By: #### C MP, HSTROPN #### [facility] [address] [place] [address] Dr. Jovanni Maya MANUAL DIFF REQ NO Normal [facility] Comment on above: Performed By: #### C MP, HSTROPN #### [facility] [address] [place] [address] Dr. Jovanni Maya MCH (RBC) [Entitic mass] 29.6 pg Normal 26.7-34.[address] [facility] Comment on above: Performed By: #### C MP, HSTROPN #### [facility] [address] [place] [address] Dr. Jovanni Maya MCHC (RBC) [Mass/Vol] 33.2 g/dL Normal 29.9-35.[address] [facility] Comment on above: Performed By: #### C MP, HSTROPN #### [facility] [address] [place] [address] Dr. Jovanni Maya MCV (RBC) [Entitic vol] 89.1 fL Normal 81.0-99.[address] [facility] Comment on above: Performed By: #### C MP, HSTROPN #### [facility] [address] [place] [address] Dr. Jovanni Maya MONO # 0.7 103/ul Normal 0.3-0.8 [facility] Comment on above: Performed By: #### C MP, HSTROPN #### [facility] [address] [place] [address] Dr. Jovanni Maya Monocytes/100 WBC (Bld) 10.2 % Normal 1.7-12.[address] [facility] Comment on above: Performed By: #### C MP, HSTROPN #### [facility] [address] [place] [address] Dr. Jovanni Maya NEUT # 3.2 103/ul Normal 1.4-6.[address] [facility] Comment on above: Performed By: #### C DANIEL, HSTROPN #### [facility] [address] [place] [address] Dr. Jovanni Maya Neutrophils/100 WBC (Bld) 48.1 % Normal 43.0-75.[address] [facility] Comment on above: Performed By: #### C DANIEL, HSTROPN #### [facility] [address] [place] [address] Dr. Joavnni Maya Platelet mean volume (Bld) [Entitic vol] 9.8 fL Normal 9.5-13.[address] [facility] Comment on above: Performed By: #### C DANIEL, HSTROPN #### [facility] [address] [place] [address] Dr. Jovanni Maya PLT 222 103/ul Normal 150-450 [facility] Comment on above: Performed By: #### C MP, HSTROPN #### [facility] [address] [place] [address] Dr. Jovanni Maya RBC 3.85 106/ul Critically low 4.20-5.40 [facility] Comment on above: Performed By: #### C MP, HSTROPN #### [facility] [address] [place] [address] Dr. Jovanni Maya WBC 6.5 103/ul Normal 4.0-11.0 [facility] Comment on above: Performed By: #### C MP, HSTROPN #### [facility] [address] [place] [address] Dr. Jovanni Maya CULTURE URINEon 11-29-2021 CULTURE URINE Culture Observations : LIGHT GROWTH OF MIXED GENITAL ZANDER. NO POTENTIAL PATHOGENS SEEN. Normal [facility] Comment on above: Performed By: #### C MP, HSTROPN #### [facility] [address] [place] [address] Dr. Jovanni Maya DRUG SCREEN RAPID (URINE)on 11-29-2021 AMP Negative Normal NEGATIVE [facility] Comment on above: Performed By: #### P REG, ACETON #### [facility] [address] [place] [address] Dr. Jovanni Maya BAR Negative Normal NEGATIVE [facility] Comment on above: Performed By: #### P REG, ACETON #### [facility] [address] [place] [address] Dr. Jovanni Maya BUP Negative Normal NEGATIVE [facility] Comment on above: Performed By: #### P REG, ACETON #### [facility] [address] [place] [address] Dr. Jovanni Maya BZO Positive Abnormal NEGATIVE [facility] Comment on above: Performed By: #### P REG, ACETON #### [facility] [address] [place] [address] Dr. Jovanni Maya DARIEN Negative Normal NEGATIVE [facility] Comment on above: Performed By: #### P REG, ACETON #### [facility] [address] [place] [address] Dr. Jovanni Maya CUT-OFFS SEE BELOW Normal [facility] Comment on above: Result Comment: AMP (Amphetamine): [...] Performed By: #### P REG, ACETON #### [facility] [address] [place] [address] Dr. Jovanni Maya DRUG CUT HEADER DRUG CLASS TEST SYST EM CUT-OFF CONCENTRATIONS ARE FOLLOWS: Normal [facility] Comment on above: Performed By: #### P REG, ACETON #### [facility] [address] [place] [address] Dr. Jovanni Maya mAMP Negative Normal NEGATIVE [facility] Comment on above: Performed By: #### P REG, ACETON #### [facility] [address] [place] [address] Dr. Jovanni Maya MTD Negative Normal NEGATIVE [facility] Comment on above: Performed By: #### P REG, ACETON #### [facility] [address] [place] [address] Dr. Jovanni Maya OPI Negative Normal NEGATIVE [facility] Comment on above: Performed By: #### P REG, ACETON #### [facility] [address] [place] [address] Dr. Jovanni Maya OXY Positive Abnormal NEGATIVE [facility] Comment on above: Performed By: #### P REG, ACETON #### [facility] [address] [place] [address] Dr. Jovanni Maya PCP Negative Normal NEGATIVE [facility] Comment on above: Performed By: #### P REG, ACETON #### [facility] [address] [place] [address] Dr. Jovanni Maya PPX Negative Normal NEGATIVE [facility] Comment on above: Performed By: #### P REG, ACETON #### [facility] [address] [place] [address] Dr. Jovanni Maya TCA Negative Normal NEGATIVE [facility] Comment on above: Performed By: #### P REG, ACETON #### [facility] [address] [place] [address] Dr. Jovanni Maya THC Positive Abnormal NEGATIVE [facility] Comment on above: Performed By: #### P REG, ACETON #### [facility] [address] [place] [address] [address] Jovanni Maya ER URINE PROFILEon 2 Bilirubin Ql (U) SMALL Abnormal NEGATIVE [facility] Comment on above: Performed By: #### P REG, ACETON #### [facility] [address] [place] [address] Dr. Jovanni Maya Clarity (U) CLEAR Normal CLEAR [facility] Comment on above: Performed By: #### P REG, ACETON #### [facility] [address] [place] [address] [address] Jovanni Maya Color (U) BROWN Abnormal YELLOW [facility] Comment on above: Performed By: #### P REG, ACETON #### [facility] [address] [place] [address] Dr. Jovanni ANTOINE A micrscopic examina tion will be performed if indicated. Normal [facility] Comment on above: Performed By: #### P REG, ACETON #### [facility] [address] [place] [address] Dr. Jovanni Maya Glucose Ql (U) Negative Normal NEGATIVE [facility] Comment on above: Performed By: #### P REG, ACETON #### [facility] [address] [place] [address] Dr. Jovanni Maya Hemoglobin Ql (U) LARGE Abnormal NEGATIVE [facility] Comment on above: Performed By: #### P REG, ACETON #### [facility] [address] [place] [address] [address] Jovanni Maya Ketones Ql (U) Negative Normal NEGATIVE [facility] Comment on above: Performed By: #### P REG, ACETON #### [facility] [address] [place] [address] Dr. Jovanni Maya LEUKOCYTES MODERATE Abnormal NEGATIVE [facility] Comment on above: Performed By: #### P REG, ACETON #### [facility] [address] [place] [address] Dr. Jovanni Maya Nitrite Ql (U) Negative Normal NEGATIVE [facility] Comment on above: Performed By: #### P REG, ACETON #### [facility] [address] [place] [address] [address] Jovanni Maya pH (U) 6.0 [pH] Normal 5-[address] [facility] Comment on above: Performed By: #### P REG, ACETON #### [facility] [address] [place] [address] [address] Jovanni Maya Protein (U) [Mass/Vol] 100 mg/dL Abnormal NEGATIVE/ TRACE [facility] Comment on above: Performed By: #### P REG, ACETON #### [facility] [address] [place] [address] Dr. Jovanni Maya SPEC GRAVITY 1.025 Normal 1.005-<=1.[address] [place] [address] Comment on above: Performed By: #### P REG, ACETON #### [facility] [address] [place] [address] Dr. Jovanni Maya UR MICRO IND INDICATED Normal [facility] Comment on above: Performed By: #### P REG, ACETON #### [facility] [address] [place] [address] Dr. Jovanni Maya Urobilinogen Qn (U) 1.0 {Carlos A'U}/dL Normal 0.2 - 1. [address] [facility] Comment on above: Performed By: #### P REG, ACETON #### [facility] [address] [place] [address] Dr. Jovanni Maya LACTATE/LACTIC ACIDon 2021 Lactate [Moles/Vol] 1.2 mmol/L Normal 0.4-1.9 [facility] Comment on above: Performed By: #### L ACT #### [facility] [address] [place] [address] [address] Jovanni Maya URon 11-29-2021 , QUAL Negative Normal NEGATIVE [facility] Comment on above: Performed By: #### P REG, ACETON #### [facility] [address] [place] [address] Dr. Jovanni Maya PROF CHEM 8 (BAS METB)on Anion gap [Moles/Vol] 11.0 mmol/L Normal [facility] Comment on above: Performed By: #### C DANIEL, HSTROPN #### [facility] [address] [place] [address] [address] Jovanni Maya Calcium [Mass/Vol] 8.7 mg/dL Normal 8.5-10.1 [facility] Comment on above: Performed By: #### C DANIEL, HSTROPN #### [facility] [address] [place] [address] [address] Jovanni Maya Chloride [Moles/Vol] 105 mmol/L Normal 98-[address] [facility] Comment on above: Performed By: #### C DANIEL, HSTROPN #### [facility] [address] [place] [address] Dr. Jovanni Maya CO2 [Moles/Vol] 27.5 mmol/L Normal 21.0-32.0 [facility] Comment on above: Performed By: #### C DANIEL, HSTROPN #### [facility] [address] [place] [address] Dr. Jovanni Maya Creatinine [Mass/Vol] 0.84 mg/dL Normal 0.55-1.[address] [facility] Comment on above: Performed By: #### C DANIEL, HSTROPN #### [facility] [address] [place] [address] Dr. Jovanni Maya EGFR-AF HAITIAN >60 Normal >=60 [facility] Comment on above: Performed By: #### C DANIEL, HSTROPN #### [facility] [address] [place] [address] Dr. Jovanni Maya EGFR-NON AF HAITIAN >60 Normal >=[address] [facility] Comment on above: Performed By: #### C DANIEL, HSTROPN #### [facility] [address] [place] [address] Dr. Jovanni Maya Glucose [Mass/Vol] 103 mg/dL Normal 74-106 [facility] Comment on above: Performed By: #### C DANIEL, HSTROPN #### [facility] [address] [place] [address] [address] Jovanni Maya Potassium [Moles/Vol] 3.5 mmol/L Normal 3.5-5.[address] [facility] Comment on above: Performed By: #### C DANIEL, HSTROPN #### [facility] [address] [place] [address] Dr. Jovanni Maya Sodium [Moles/Vol] 140 mmol/L Normal 136-145 [facility] Comment on above: Performed By: #### C MP, HSTROPN #### [facility] [address] [place] [address] Dr. Jovanni Maya Urea nitrogen [Mass/Vol] 12.0 mg/dL Normal 7.0-18.[address] [facility] Comment on above: Performed By: #### C DANIEL, HSTROPN #### [facility] [address] [place] [address] Dr. Jovanni Maya Urea nitrogen/Creatinine [Mass ratio] 14.3 mg/mg Normal [facility] Comment on above: Performed By: #### C DANIEL, HSTROPN #### [facility] [address] [place] [address] Dr. Jovanni Maya URINE MICROSCOPIC ONLYon BACTERIA TRACE Abnormal NONE SEEN [facility] Comment on above: Performed By: #### P REG, ACETON #### [facility] [address] [place] [address] Dr. Jovanni Maya Bacteria identified Cx Nom (U) INDICATED Normal [facility] Comment on above: Performed By: #### P REG, ACETON #### [facility] [address] [place] [address] Dr. Jovanni Maya CA OX CRYSTALS RARE Normal [facility] Comment on above: Performed By: #### P REG, ACETON #### [facility] [address] [place] [address] Dr. Jovanni Maya CAST SEEN Abnormal NONE SEEN [facility] Comment on above: Performed By: #### P REG, ACETON #### [facility] [address] [place] [address] Dr. Jovanni Maya Crystals LM Nom (Urine sed) SEEN Abnormal NONE SEEN [facility] Comment on above: Performed By: #### P REG, ACETON #### [facility] [address] [place] [address] Dr. Jovanni Maya Epithelial cells LM Ql (Urine sed) FEW Abnormal NONE SEEN /RARE [facility] Comment on above: Performed By: #### P REG, ACETON #### [facility] [address] [place] [address] Dr. Jovanni Maya HYALINE CAST RARE Normal [facility] Comment on above: Performed By: #### P REG, ACETON #### [facility] [address] [place] [address] Dr. Jovanni Maya MUCOUS SMALL Abnormal NONE SEEN [facility] Comment on above: Performed By: #### P REG, ACETON #### [facility] [address] [place] [address] Dr. Jovanni Maya RBC 20-50 Abnormal 0-2 [facility] Comment on above: Performed By: #### P REG, ACETON #### [facility] [address] [place] [address] Dr. Jovanni Maya WBC 5-10 Abnormal NONE SEEN [facility] Comment on above: Performed By: #### P REG, ACETON #### [facility] [address] [place] [address] Dr. Jovanni Maya CBC AUTO DIFFon 10-16-2021 BASO # 0.0 103/ul Normal 0.0-0.1 [facility] Comment on above: Performed By: #### P REG, ACETON #### [facility] [address] [place] [address] Dr. Jovanni Maya Basophils/100 WBC (Bld) 0.2 % Normal 0.2-2.0 [facility] Comment on above: Performed By: #### P REG, ACETON #### [facility] [address] [place] [address] Dr. Jovanni Maya EO # 0.1 103/ul Normal 0.0-0.7 [facility] Comment on above: Performed By: #### P REG, ACETON #### [facility] [address] [place] [address] Dr. Jovanni Maya Eosinophils/100 WBC (Bld) 0.8 % Critically low 0.9-7.[address] [facility] Comment on above: Performed By: #### P REG, ACETON #### [facility] [address] [place] [address] Dr. Jovanni Maya Erythrocyte distribution width (RBC) [Ratio] 12.2 % Normal 11.0-15.[address] [facility] Comment on above: Performed By: #### P REG, ACETON #### [facility] [address] [place] [address] Dr. Jovanni Maya Hematocrit (Bld) [Volume fraction] 42.4 % Normal 36.0-48.[address] [facility] Comment on above: Performed By: #### P REG, ACETON #### [facility] [address] [place] [address] Dr. Jovanni Maya Hemoglobin (Bld) [Mass/Vol] 14.5 g/dL Normal 12.0-16.[address] [facility] Comment on above: Performed By: #### P REG, ACETON #### [facility] [address] [place] [address] Dr. Jovanni Maya IG # 0.04 10e3/ul Critically high 0.00-0.03 [facility] Comment on above: Performed By: #### P REG, ACETON #### [facility] [address] [place] [address] Dr. Jovanni Maya IG % 0.5 % Normal 0.0-0.[address] [facility] Comment on above: Performed By: #### P REG, ACETON #### [facility] [address] [place] [address] Dr. Jovanni Maya LYMPH # 2.8 103/ul Normal 1.2-3.[address] [facility] Comment on above: Performed By: #### P REG, ACETON #### [facility] [address] [place] [address] Dr. Jovanni Maya Lymphocytes/100 WBC (Bld) 31.8 % Normal 20.5-60.[address] [facility] Comment on above: Performed By: #### P REG, ACETON #### [facility] [address] [place] [address] Dr. Jovanni Maya MANUAL DIFF REQ NO Normal [facility] Comment on above: Performed By: #### P REG, ACETON #### [facility] [address] [place] [address] Dr. Jovanni Maya MCH (RBC) [Entitic mass] 29.8 pg Normal 26.7-34.[address] [facility] Comment on above: Performed By: #### P REG, ACETON #### [facility] [address] [place] [address] Dr. Jovanni Maya MCHC (RBC) [Mass/Vol] 34.2 g/dL Normal 29.9-35.[address] [facility] Comment on above: Performed By: #### P REG, ACETON #### [facility] [address] [place] [address] Dr. Jovanni Maya MCV (RBC) [Entitic vol] 87.1 fL Normal 81.0-99.[address] [facility] Comment on above: Performed By: #### P REG, ACETON #### [facility] [address] [place] [address] Dr. Jovanni Maya MONO # 0.6 103/ul Normal 0.3-0.[address] [facility] Comment on above: Performed By: #### P REG, ACETON #### [facility] [address] [place] [address] Dr. Jovanni Maya Monocytes/100 WBC (Bld) 7.1 % Normal 1.7-12.[address] [facility] Comment on above: Performed By: #### P REG, ACETON #### [facility] [address] [place] [address] Dr. Jovanni Maya NEUT # 5.2 103/ul Normal 1.4-6.[address] [facility] Comment on above: Performed By: #### P REG, ACETON #### [facility] [address] [place] [address] Dr. Jovanni Maya Neutrophils/100 WBC (Bld) 59.6 % Normal 43.0-75.0 [facility] Comment on above: Performed By: #### P REG, ACETON #### [facility] [address] [place] [address] Dr. Jovanni Maya Platelet mean volume (Bld) [Entitic vol] 9.2 fL Critically low 9.5-13.5 [facility] Comment on above: Performed By: #### P REG, ACETON #### [facility] [address] [place] [address] Dr. Jovanni Maya PLT 301 103/ul Normal 150-450 [facility] Comment on above: Performed By: #### P REG, ACETON #### [facility] [address] [place] [address] Dr. Jovanni Maya RBC 4.87 106/ul Normal 4.20-5.40 [facility] Comment on above: Performed By: #### P REG, ACETON #### [facility] [address] [place] [address] Dr. Jovanni Maya WBC 8.7 103/ul Normal 4.0-11.0 [facility] Comment on above: Performed By: #### P REG, ACETON #### [facility] [address] [place] [address] Dr. Jovanni Maya CULTURE URINEon 10-16-2021 CULTURE URINE Culture Observations : LIGHT GROWTH OF MIXED GENITAL ZANDER. NO POTENTIAL PATHOGENS SEEN. Normal [facility] Comment on above: Performed By: #### C MP, HSTROPN #### [facility] [address] [place] [address] Dr. Jovanni Maya ER URINE PROFILEon Bilirubin Ql (U) Negative Normal NEGATIVE [facility] Comment on above: Performed By: #### P REG, ACETON #### [facility] [address] [place] [address] Dr. Jovanni Maya Clarity (U) CLEAR Normal CLEAR [facility] Comment on above: Performed By: #### P REG, ACETON #### [facility] [address] [place] [address] Dr. Jovanni Maya Color (U) LT. YELLOW Normal YELLOW [facility] Comment on above: Performed By: #### P REG, ACETON #### [facility] [address] [place] [address] Dr. Jovanni Maya ERUAHD A micrscopic examina tion will be performed if indicated. Normal [facility] Comment on above: Performed By: #### P REG, ACETON #### [facility] [address] [place] [address] Dr. Jovanni Maya Glucose Ql (U) Negative Normal NEGATIVE The [facility] Comment on above: Performed By: #### P REG, ACETON #### [facility] [address] [place] [address] Dr. Jovanni Maya Hemoglobin Ql (U) LARGE Abnormal NEGATIVE [facility] Comment on above: Performed By: #### P REG, ACETON #### [facility] [address] [place] [address] Dr. Jovanni Maya Ketones Ql (U) TRACE Abnormal NEGATIVE [facility] Comment on above: Performed By: #### P REG, ACETON #### [facility] [address] [place] [address] Dr. Jovanni Maya LEUKOCYTES MODERATE Abnormal NEGATIVE [facility] Comment on above: Performed By: #### P REG, ACETON #### [facility] [address] [place] [address] Dr. Jovanni Maya Nitrite Ql (U) Negative Normal NEGATIVE [facility] Comment on above: Performed By: #### P REG, ACETON #### [facility] [address] [place] [address] Dr. Jovanni Maya pH (U) [pH] Abnormal 5-9 [facility] Comment on above: Performed By: #### P REG, ACETON #### [facility] [address] [place] [address] Dr. Jovanni Maya Protein (U) [Mass/Vol] 100 mg/dL Abnormal NEGATIVE/ TRACE [facility] Comment on above: Performed By: #### P REG, ACETON #### [facility] [address] [place] [address] Dr. Jovanni Maya SPEC GRAVITY 1.015 Normal 1.005-<=1.[address] [facility] Comment on above: Performed By: #### P REG, ACETON #### [facility] [address] [place] [address] Dr. Jovanni Maya UR MICRO IND INDICATED Normal [facility] Comment on above: Performed By: #### P REG, ACETON #### [facility] [address] [place] [address] Dr. Jovanni Maya Urobilinogen Qn (U) 1.0 {Carlos A'U}/dL Normal 0.2 - 1. [address] [facility] Comment on above: Performed By: #### P REG, ACETON #### [facility] [address] [place] [address] Dr. Jovanni Maya LIPASEon 10-16-2021 Lipase [Catalytic activity/Vol] 85.0 U/L Normal 23.0-300.[address] [facility] Comment on above: Performed By: #### P REG, ACETON #### [facility] [address] [place] [address] Dr. Jovanni Maya URon 10-16-2021 , QUAL Negative Normal NEGATIVE [facility] Comment on above: Performed By: #### P REG, ACETON #### [facility] [address] [place] [address] Dr. Jovanni Maya PROF 14(COMP METB)on 022 Albumin [Mass/Vol] 4.4 g/dL Normal 3.4-5.0 [facility] Comment on above: Performed By: #### P REG, ACETON #### [facility] [address] [place] [address] Dr. Jovanni Maya Albumin/Globulin [Mass ratio] 1.2 {ratio} Normal [facility] Comment on above: Performed By: #### P REG, ACETON #### [facility] [address] [place] [address] Dr. Jovanni Maya ALP [Catalytic activity/Vol] 66 U/L Normal 46-116 [facility] Comment on above: Performed By: #### P REG, ACETON #### [facility] [address] [address] [address] Jovanni Maya ALT [Catalytic activity/Vol] 13 U/L Critically low 14-[address] [facility] Comment on above: Performed By: #### P REG, ACETON #### [facility] [address] [address] [address] Jovanni Maya Anion gap [Moles/Vol] 11.4 mmol/L Normal [facility] Comment on above: Performed By: #### P REG, ACETON #### [facility] [address] [address] [address] Jovanni Maya AST [Catalytic activity/Vol] 13 U/L Critically low 15-[address] [facility] Comment on above: Performed By: #### P REG, ACETON #### [facility] [address] [address] [address] Jovanni Maya Bilirubin [Mass/Vol] 0.6 mg/dL Normal 0.2-1.[address] [facility] Comment on above: Performed By: #### P REG, ACETON #### [facility] [address] [address] [address] Jovanni Maya Calcium [Mass/Vol] 8.7 mg/dL Normal 8.5-10.1 [facility] Comment on above: Performed By: #### P REG, ACETON #### [facility] [address] [address] [address] Jovanni Maya Chloride [Moles/Vol] 101 mmol/L Normal 98-[address] [facility] Comment on above: Performed By: #### P REG, ACETON #### [facility] [address] [address] [address] Jovanni Maya CO2 [Moles/Vol] 27.5 mmol/L Normal 22.0-30.0 [facility] Comment on above: Performed By: #### P REG, ACETON #### [facility] [address] [address] [address] Jovanni Maya Creatinine [Mass/Vol] 0.80 mg/dL Normal 0.55-1.[address] [facility] Comment on above: Performed By: #### P REG, ACETON #### [facility] [address] [address] [address] Jovanni Maya EGFR-AF HAITIAN >60 Normal >=60 [facility] Comment on above: Performed By: #### P REG, ACETON #### [facility] [address] [address] [address] Jovanni Maya EGFR-NON AF HAITIAN >60 Normal >=[address] [facility] Comment on above: Performed By: #### P REG, ACETON #### [facility] [address] [address] [address] Jovanni Maya Globulin (S) [Mass/Vol] 3.7 g/dL Normal [facility] Comment on above: Performed By: #### P REG, ACETON #### [facility] [address] [address] [address] Jovanni Maya Glucose [Mass/Vol] 90 mg/dL Normal 74-106 [facility] Comment on above: Performed By: #### P REG, ACETON #### [facility] [address] [address] [address] Jovanni Maya Potassium [Moles/Vol] 3.9 mmol/L Normal 3.4-5.[address] [facility] Comment on above: Performed By: #### P REG, ACETON #### [facility] [address] [address] [address] Jovanni Maya Protein [Mass/Vol] 8.1 g/dL Normal 6.1-8.2 [facility] Comment on above: Performed By: #### P REG, ACETON #### [facility] [address] [address] [address] Jovanni Maya Sodium [Moles/Vol] 136 mmol/L Critically low 137-145 [facility] Comment on above: Performed By: #### P REG, ACETON #### [facility] [address] [address] [address] Jovanni Maya Urea nitrogen [Mass/Vol] 10.0 mg/dL Normal 7.0-18.0 [facility] Comment on above: Performed By: #### P REG, ACETON #### [facility] [address] [place] [address] Dr. Jovanni Maya Urea nitrogen/Creatinine [Mass ratio] 12.5 mg/mg Normal [facility] Comment on above: Performed By: #### P REG, ACETON #### [facility] [address] [place] [address] Dr. Jovanni Maya URINE MICROSCOPIC ONLYon BACTERIA MODERATE Abnormal NONE SEEN [facility] Comment on above: Performed By: #### P REG, ACETON #### [facility] [address] [place] [address] Dr. Jovanni Maya Bacteria identified Cx Nom (U) INDICATED Normal [facility] Comment on above: Performed By: #### P REG, ACETON #### [facility] [address] [place] [address] Dr. Jovanni Maya CA OX CRYSTALS RARE Normal [facility] Comment on above: Performed By: #### P REG, ACETON #### [facility] [address] [place] [address] Dr. Jovanni Maya CAST NONE SEEN Normal NONE SEEN [facility] Comment on above: Performed By: #### P REG, ACETON #### [facility] [address] [place] [address] Dr. Jovanni Maya Crystals LM Nom (Urine sed) SEEN Abnormal NONE SEEN [facility] Comment on above: Performed By: #### P REG, ACETON #### [facility] [address] [place] [address] Dr. Jovanni Maya Epithelial cells LM Ql (Urine sed) MODERATE Abnormal NONE SEEN /RARE [facility] Comment on above: Performed By: #### P REG, ACETON #### [facility] [address] [place] [address] Dr. Jovanni Maya MUCOUS NONE SEEN Normal NONE SEEN [facility] Comment on above: Performed By: #### P REG, ACETON #### [facility] [address] [place] [address] Dr. Jovanni Maya RBC 50-75 Abnormal 0-2 [facility] Comment on above: Performed By: #### P REG, ACETON #### [facility] [address] [place], [place] [address] Dr. Jovanni Maya WBC 10-20 Abnormal NONE SEEN [facility] Comment on above: Performed By: #### P REG, ACETON #### [facility] [address] [place], [place] [address] Dr. Jovanni Maya XR KUB 1 VIEWon [...] COSMO ALONSO Date: 2021-10-16 19:18 Normal [facility] Activated partial thrombopla stin time (aPTT) in platelet poor plasma by coagulation aOrdered By: Roberto Whittaker on 09-28-2021 aPTT Coag (PPP) [Time] 34.9 s 25.1-36.5 [facility] Albumin [Mass/volume] in Ser um or PlasmaOrdered By: Roberto Whittaker on 09-28-2021 Albumin [Mass/Vol] 4.3 g/dL 3.2-5.5 [facility] Basophils Auto (Bld) [#/Vol] Ordered By: Roberto Whittaker on 09-28-2021 Basophils (Bld) [#/Vol] 0.0 10*3/uL 0.0-0.2 [facility] Basophils/100 WBC Auto (Bld) Ordered By: Roberto Whittaker on 09-28-2021 Basophils/100 WBC (Bld) 0.7 % [facility] Blood hemoglobin measurement (mass/volume)Ordered By: Roberto Whittaker on 09-28-2021 Hemoglobin (Bld) [Mass/Vol] 14.7 g/dL 11.8-15.4 [facility] Blood leukocytes automated c ount (number/volume)Ordered By: Roberto Whittaker on 09-28-2021 WBC (Bld) [#/Vol] 6.2 10*3/uL 4.5-11.0 [facility] Creatinine and Glomerular fi ltration rate.predicted panel (S/P/Bld)Ordered By: Roberto Whittaker on 09-28-2021 Creatinine [Mass/Vol] 0.73 mg/dL 0.44-1.03 [facility] Direct bilirubin measurement Ordered By: Roberto Whittaker on 09-28-2021 Bilirubin.direct [Mass/Vol] mg/dL 0.0-0.4 [facility] Eosinophils Auto (Bld) [#/Vo l]Ordered By: Roberto Whittaker on 09-28-2021 Eosinophils (Bld) [#/Vol] 0.1 10*3/uL 0.0-0.45 [facility] Eosinophils/100 WBC Auto (Bl d)Ordered By: Roberto Whittaker on 09-28-2021 Eosinophils/100 WBC (Bld) 1.8 % [facility] Erythrocyte distribution wid th Auto (RBC) [Ratio]Ordered By: Roberto Whittaker on 09-28-2021 Erythrocyte distribution width (RBC) [Ratio] 13.1 % 11.9-15.3 [facility] Estimated glomerular filtrat ion rate (GFR) non- AmericanOrdered By: Roberto Whittaker on 09-28-2021 GFR/1.73 sq M.predicted among non-blacks MDRD (S/P/Bld) [Vol rate/Area] > 60 mL/Min [facility] Globulin Calc (S) [Mass/Vol] Ordered By: Roberto Whittaker on 09-28-2021 Globulin (S) [Mass/Vol] 3.2 g/dL [facility] Hematocrit Auto (Bld) [Volum e fraction]Ordered By: Roberto Whittaker on 09-28-2021 Hematocrit (Bld) [Volume fraction] 44.2 % 34.0-46.4 [facility] - Chemistry and C hemistry - challengeOrdered By: Roberto Whittaker on 09-28-2021 Lipase [Catalytic activity/Vol] 36.0 U/L 22-51 [facility] Natriuretic peptide B (Bld) [Mass/Vol] 17.0 pg/mL 5-100 [facility] - CoagulationOrde red By: Roberto Whittaker on 09-28-2021 PT Coag (PPP) [Time] 12.3 s 9.0-12.9 [facility] - Hematology and Cell countsOrdered By: Roberto Whittaker on 09-28-2021 Nucleated RBC/100 WBC (Bld) [Ratio] 0.0 % 0-0.5 [facility] Lymphocytes Auto (Bld) [#/Vo l]Ordered By: Roberto Whittaker on 09-28-2021 Lymphocytes (Bld) [#/Vol] 2.7 10*3/uL 1.00-4.8 [facility] Lymphocytes/100 WBC Auto (Bl d)Ordered By: Roberto Whittaker on 09-28-2021 Lymphocytes/100 WBC (Bld) 43.6 % [facility] MCH Auto (RBC) [Entitic mass ]Ordered By: Roberto Whittaker on 09-28-2021 MCH (RBC) [Entitic mass] 29.8 pg 24.7-34.3 [facility] MCHC Auto (RBC) [Mass/Vol]Or dered By: Roberto Whittaker on 09-28-2021 MCHC (RBC) [Mass/Vol] 33.2 g/dL 32.0-35.0 [facility] MCV Auto (RBC) [Entitic vol] Ordered By: Roberto Whittaker on 09-28-2021 MCV (RBC) [Entitic vol] 89.6 fL 80-100 [facility] Monocytes Auto (Bld) [#/Vol] Ordered By: Roberto Whittaker on 09-28-2021 Monocytes (Bld) [#/Vol] 0.4 10*3/uL 0.0-0.8 [facility] Monocytes/100 WBC Auto (Bld) Ordered By: Roberto Whittaker on 09-28-2021 Monocytes/100 WBC (Bld) 6.8 % [facility] Neutrophils Auto (Bld) [#/Vo l]Ordered By: Roberto Whittaker on 09-28-2021 Neutrophils (Bld) [#/Vol] 2.9 10*3/uL 1.8-7.7 [facility] Neutrophils/100 WBC Auto (Bl d)Ordered By: Roberto Whittaker on 09-28-2021 Neutrophils/100 WBC (Bld) 47.1 % [facility] No Panel InformationOrdered By: Roberto Whittaker on 09-28-2021 Estimated GFR () > 60 mL/Min [facility] Comment on above: GFR estimated refere nce range: According to KDOQI guidelines, <60 ml/min/1.73m2 is sufficient to diagnose a patient with chronic kidney disease. Pharmacy Creatinine Clearance (Chem 91.21 [facility] Platelet mean volume Auto (B ld) [Entitic vol]Ordered By: Roberto Whittaker on 09-28-2021 Platelet mean volume (Bld) [Entitic vol] 7.7 fL 6.3-10.7 [facility] Platelet poor plasma interna tional normalized ratio (INR) by coagulation assay (relatOrdered By: Roberto Whittaker on 09-28-2021 INR Coag (PPP) [Relative time] 1.1 {INR} [facility] Comment on above: INR Therapeutic Rang e [...] 09-28-2021 Platelets (Bld) [#/Vol] 291 10*3/uL 150-450 [facility] Protein [Mass/volume] in Ser um or PlasmaOrdered By: Roberto Whittaker on 09-28-2021 Protein [Mass/Vol] 7.5 g/dL 6.1-7.9 [facility] RBC Auto (Bld) [#/Vol]Ordere d By: Roberto Whittaker on 09-28-2021 RBC (Bld) [#/Vol] 4.93 10*6/uL 3.60-5.00 [facility] Serum or plasma alanine white otransferase measurement without P-5'-P (enzymatic activiOrdered By: Roberto Whittaker on 09-28-2021 ALT No additional P-5'-P [Catalytic activity/Vol] 9 U/L 10-60 [facility] Serum or plasma albumin/glob ulin mass ratioOrdered By: Roberto Whittaker on 09-28-2021 Albumin/Globulin [Mass ratio] 1.3 {ratio} [facility] Serum or plasma alkaline ignacio sphatase measurement (enzymatic activity/volume)Ordered By: Roberto Whittaker on 09-28-2021 ALP [Catalytic activity/Vol] 51 U/L 32-92 [facility] Serum or plasma aspartate am inotransferase measurement (enzymatic activity/volume)Ordered By: Roberto Whittaker on 09-28-2021 AST [Catalytic activity/Vol] 16 U/L 10-42 [facility] Serum or plasma calcium randi urement (mass/volume)Ordered By: Roberto Whittaker on 09-28-2021 Calcium [Mass/Vol] 9.2 mg/dL 8.2-10.2 [facility] Serum or plasma chloride melonie surement (moles/volume)Ordered By: Roberto Whittaker on 09-28-2021 Chloride [Moles/Vol] 104 mmol/L 95-114 [facility] Serum or plasma glucose randi urement (mass/volume)Ordered By: Roberto Whittaker on 09-28-2021 Glucose [Mass/Vol] 100 mg/dL 70-100 [facility] Comment on above: ADA recommended refe rence rangeRandom Glucose Reference Range is dependent on time and content of last meal. Glucose of more than 200 mg/dL in a nonstressed, ambulatory subject supports the diagnosis of Diabetes Mellitus. Serum or plasma non-glucuron idated bilirubin measurement (mass/volume)Ordered By: Roberto Whittaker on 09-28-2021 Bilirubin.indirect [Mass/Vol] TNP [facility] Comment on above: Test not performed Serum or plasma potassium me asurement (moles/volume)Ordered By: Roberto Whittaker on 09-28-2021 Potassium [Moles/Vol] 4.4 mmol/L 3.5-5.1 [facility] Serum or plasma sodium measu rement (moles/volume)Ordered By: Roberto Whittaker on 09-28-2021 Sodium [Moles/Vol] 140 mmol/L 136-146 [facility] Serum or plasma total biliru bin measurement (mass/volume)Ordered By: Roberto Whittaker on 09-28-2021 Bilirubin [Mass/Vol] 0.4 mg/dL 0.3-1.2 [facility] Serum or plasma total carbon dioxide measurement (moles/volume)Ordered By: Roberto Whittaker on 09-28-2021 CO2 [Moles/Vol] 28.1 mmol/L 22.0-30.0 [facility] Serum or plasma urea nitroge n measurement (mass/volume)Ordered By: Roberto Whittaker on 09-28-2021 Urea nitrogen [Mass/Vol] 5 mg/dL 9- [facility] Troponin I.cardiac [Mass/vol ume] in Serum or Plasma by High sensitivity methodOrdered By: Roberto Whittaker on 09-28-2021 Troponin I.cardiac High sensitivity method [Mass/Vol] < 3 pg/mL 0-15 [facility] Albumin [Mass/volume] in Ser um or PlasmaOrdered By: Luz Fiore on 09-09-2021 Albumin [Mass/Vol] 4.0 g/dL 3.2-5.5 [facility] Amphetamine Screen Ql (U)Ord ered By: Luz Fiore on 09-09-2021 Amphetamines Ql (U) Negative Negative [facility] Automated erythrocytes count in urine sediment (number/area)Ordered By: Luz Fiore on 09-09-2021 RBC Auto (Urine sed) [#/Area] 50-100 [HPF] [facility] Automated leukocytes count i n urine sediment (number/area)Ordered By: Luz Fiore on 09-09-2021 WBC Auto (Urine sed) [#/Area] 20-49 [HPF] [facility] Barbiturates [Presence] in U rineOrdered By: Luz Fiore on 09-09-2021 Barbiturates Ql (U) Negative Negative [facility] Basophils Auto (Bld) [#/Vol] Ordered By: Luz Fiore on 09-09-2021 Basophils (Bld) [#/Vol] 0.0 10*3/uL 0.0-0.2 [facility] Basophils/100 WBC Auto (Bld) Ordered By: Luz Fiore on 09-09-2021 Basophils/100 WBC (Bld) 0.5 % [facility] Benzodiazepines [Presence] i n UrineOrdered By: Luz Fiore on 09-09-2021 Benzodiazepines Ql (U) Negative Negative [facility] Bilirubin Test strip Ql (U)O rdered By: Luz Fiore on 09-09-2021 Bilirubin Ql (U) Negative Negative [facility] Blood hemoglobin measurement (mass/volume)Ordered By: Luz Fiore on 09-09-2021 Hemoglobin (Bld) [Mass/Vol] 14.1 g/dL 11.8-15.4 [facility] Blood leukocytes automated c ount (number/volume)Ordered By: Luz Fiore on 09-09-2021 WBC (Bld) [#/Vol] 8.3 10*3/uL 4.5-11.0 [facility] Cannabinoids [Presence] in U rine by Screen methodOrdered By: Luz Fiore on 09-09-2021 Cannabinoids Screen Ql (U) Positive Negative [facility] Comment on above: These are unconfirme d results and should not be used for legal purposes. Drug Cut-Off Concentration: AMPH 1000 ng/mL DOMINIQUE 200 ng/mL BRICE 200 ng/mL COCM 300 ng/mL OP 300 ng/mL PCP 25 ng/mL THC 20 ng/mL Color Auto (U)Ordered By: Giovanni Fiore on 09-09-2021 Color (U) Yellow Yellow [facility] Creatinine and Glomerular fi ltration rate.predicted panel (S/P/Bld)Ordered By: Luz Fiore on 09-09-2021 Creatinine [Mass/Vol] 0.76 mg/dL 0.44-1.03 [facility] Eosinophils Auto (Bld) [#/Vo l]Ordered By: Luz Fiore on 09-09-2021 Eosinophils (Bld) [#/Vol] 0.1 10*3/uL 0.0-0.45 [facility] Eosinophils/100 WBC Auto (Bl d)Ordered By: Luz Fiore on 09-09-2021 Eosinophils/100 WBC (Bld) 1.8 % [facility] Erythrocyte distribution wid th Auto (RBC) [Ratio]Ordered By: Luz Fiore on 09-09-2021 Erythrocyte distribution width (RBC) [Ratio] 13.1 % 11.9-15.3 [facility] Estimated glomerular filtrat ion rate (GFR) non- AmericanOrdered By: Luz Fiore on 09-09-2021 GFR/1.73 sq M.predicted among non-blacks MDRD (S/P/Bld) [Vol rate/Area] > 60 mL/Min [facility] Globulin Calc (S) [Mass/Vol] Ordered By: Luz Fiore on 09-09-2021 Globulin (S) [Mass/Vol] 3.0 g/dL [facility] Glucose Glucometer (BldC) [M ass/Vol]Ordered By: Luz Fiore on 09-09-2021 Glucose [Mass/Vol] 106 mg/dL [facility] Comment on above: Random Glucose Refer ence Range is dependent on time and content of last meal. Glucose of more than 200 mg/dL in a nonstressed, ambulatory subject supports the diagnosis of Diabetes Mellitus. Hematocrit Auto (Bld) [Volum e fraction]Ordered By: Luz Fiore on 09-09-2021 Hematocrit (Bld) [Volume fraction] 40.9 % 34.0-46.4 [facility] Ketones Auto test strip (U) [Mass/Vol]Ordered By: Luz Fiore on 09-09-2021 Ketones (U) [Mass/Vol] Negative Negative [facility] - Chemistry and C hemistry - challengeOrdered By: Luz Fiore on 09-09-2021 Magnesium [Mass/Vol] 2.0 mg/dL 1.6-2.6 [facility] - CoagulationOrde red By: Luz Fiore on 09-09-2021 PT Coag (PPP) [Time] 12.4 s 9.0-12.9 [facility] - Drug toxicology Ordered By: Luz Fiore on 09-09-2021 Opiates Ql (U) Negative Negative [facility] - Hematology and Cell countsOrdered By: Luz Fiore on 09-09-2021 Nucleated RBC/100 WBC (Bld) [Ratio] 0.1 % 0-0.5 [facility] - UrinalysisOrder ed By: Luz Fiore on 09-09-2021 Hyaline casts LM Ql (Urine sed) 0-8 [LPF] [facility] Lymphocytes Auto (Bld) [#/Vo l]Ordered By: Luz Fiore on 09-09-2021 Lymphocytes (Bld) [#/Vol] 3.2 10*3/uL 1.00-4.8 [facility] Lymphocytes/100 WBC Auto (Bl d)Ordered By: Luz Fiore on 09-09-2021 Lymphocytes/100 WBC (Bld) 38.6 % [facility] MCH Auto (RBC) [Entitic mass ]Ordered By: Luz Fiore on 09-09-2021 MCH (RBC) [Entitic mass] 30.6 pg 24.7-34.3 [facility] MCHC Auto (RBC) [Mass/Vol]Or dered By: Luz Fiore on 09-09-2021 MCHC (RBC) [Mass/Vol] 34.5 g/dL 32.0-35.0 [facility] MCV Auto (RBC) [Entitic vol] Ordered By: Luz Fiore on 09-09-2021 MCV (RBC) [Entitic vol] 88.6 fL 80-100 [facility] Monocytes Auto (Bld) [#/Vol] Ordered By: Luz Fiore on 09-09-2021 Monocytes (Bld) [#/Vol] 0.5 10*3/uL 0.0-0.8 [facility] Monocytes/100 WBC Auto (Bld) Ordered By: Luz Fiore on 09-09-2021 Monocytes/100 WBC (Bld) 6.3 % [facility] Neutrophils Auto (Bld) [#/Vo l]Ordered By: Luz Fiore on 09-09-2021 Neutrophils (Bld) [#/Vol] 4.4 10*3/uL 1.8-7.7 [facility] Neutrophils/100 WBC Auto (Bl d)Ordered By: Luz Fiore on 09-09-2021 Neutrophils/100 WBC (Bld) 52.8 % [facility] Nitrite Test strip Ql (U)Ord ered By: Luz Fiore on 09-09-2021 Nitrite Ql (U) Negative Negative [facility] No Panel InformationOrdered By: Luz Fiore on 09-09-2021 Estimated GFR () > 60 mL/Min [facility] Comment on above: GFR estimated refere nce range: According to KDOQI guidelines, <60 ml/min/1.73m2 is sufficient to diagnose a patient with chronic kidney disease. Pharmacy Creatinine Clearance (Chem 83.88 [facility] Phencyclidine Screen Ql (U)O rdered By: Luz Fiore on 09-09-2021 Phencyclidine Ql (U) Negative Negative [facility] Platelet mean volume Auto (B ld) [Entitic vol]Ordered By: Luz Fiore on 09-09-2021 Platelet mean volume (Bld) [Entitic vol] 8.5 fL 6.3-10.7 [facility] Platelet poor plasma interna tional normalized ratio (INR) by coagulation assay (relatOrdered By: Luz Fiore on 09-09-2021 INR Coag (PPP) [Relative time] 1.1 {INR} [facility] Comment on above: INR Therapeutic Rang e [...] 09-09-2021 Platelets (Bld) [#/Vol] 249 10*3/uL 150-450 [facility] Protein Auto test strip (U) [Mass/Vol]Ordered By: Luz Fiore on 09-09-2021 Protein (U) [Mass/Vol] 30 mg/dL Negative [facility] Protein [Mass/volume] in Ser um or PlasmaOrdered By: Luz Fiore on 09-09-2021 Protein [Mass/Vol] 7.0 g/dL 6.1-7.9 [facility] RBC Auto (Bld) [#/Vol]Ordere d By: Luz Fiore on 09-09-2021 RBC (Bld) [#/Vol] 4.62 10*6/uL 3.60-5.00 [facility] Serum or plasma alanine white otransferase measurement without P-5'-P (enzymatic activiOrdered By: Luz Fiore on 09-09-2021 ALT No additional P-5'-P [Catalytic activity/Vol] 11 U/L 10-60 [facility] Serum or plasma albumin/glob ulin mass ratioOrdered By: Luz Fiore on 09-09-2021 Albumin/Globulin [Mass ratio] 1.3 {ratio} [facility] Serum or plasma alkaline ignacio sphatase measurement (enzymatic activity/volume)Ordered By: Luz Fiore on 09-09-2021 ALP [Catalytic activity/Vol] 45 U/L 32-92 [facility] Serum or plasma aspartate am inotransferase measurement (enzymatic activity/volume)Ordered By: Luz Fiore on 09-09-2021 AST [Catalytic activity/Vol] 24 U/L 10-42 [facility] Serum or plasma calcium randi urement (mass/volume)Ordered By: Luz Fiore on 09-09-2021 Calcium [Mass/Vol] 9.2 mg/dL 8.2-10.2 [facility] Serum or plasma chloride melonie surement (moles/volume)Ordered By: Luz Fiore on 09-09-2021 Chloride [Moles/Vol] 103 mmol/L 95-114 [facility] Serum or plasma glucose randi urement (mass/volume)Ordered By: Luz Fiore on 09-09-2021 Glucose [Mass/Vol] 85 mg/dL 70-100 [facility] Comment on above: ADA recommended refe rence rangeRandom Glucose Reference Range is dependent on time and content of last meal. Glucose of more than 200 mg/dL in a nonstressed, ambulatory subject supports the diagnosis of Diabetes Mellitus. Serum or plasma potassium me asurement (moles/volume)Ordered By: Luz Fiore on 09-09-2021 Potassium [Moles/Vol] 4.2 mmol/L 3.5-5.1 [facility] Serum or plasma sodium measu rement (moles/volume)Ordered By: Luz Fioer on 09-09-2021 Sodium [Moles/Vol] 138 mmol/L 136-146 [facility] Serum or plasma total biliru bin measurement (mass/volume)Ordered By: Luz Fiore on 09-09-2021 Bilirubin [Mass/Vol] 0.3 mg/dL 0.3-1.2 [facility] Serum or plasma total carbon dioxide measurement (moles/volume)Ordered By: Luz Fiore on 09-09-2021 CO2 [Moles/Vol] 26.3 mmol/L 22.0-30.0 [facility] Serum or plasma urea nitroge n measurement (mass/volume)Ordered By: Luz Fiore on 09-09-2021 Urea nitrogen [Mass/Vol] 8 mg/dL 9-23 [facility] Specific gravity Auto test s trip (U) [Rel density]Ordered By: Luz Fiore on 09-09-2021 Specific gravity (U) [Rel density] 1.017 1.001-1.030 [facility] Squamous epithelial cells de tection in urine sediment by light microscopyOrdered By: Luz Fiore on 09-09-2021 Epithelial cells.squamous LM Ql (Urine sed) 1-2 [HPF] [facility] Urine bacteria detection by automated methodOrdered By: Luz Fiore on 09-09-2021 Bacteria Auto Ql (U) None seen None Seen [facility] Urine clarity by refractomet ry automatedOrdered By: Luz Fiore on 09-09-2021 Clarity Refractometry automated (U) Cloudy Clear [facility] Urine cocaine detectionOrder ed By: Luz Fiore on 09-09-2021 Cocaine Ql (U) Negative Negative [facility] Urine culture routineOrdered By: Luz Fiore on 09-09-2021 Bacteria identified Cx Nom (U) 2 Days [facility] Urine glucose measurement by automated test strip (mass/volume)Ordered By: Luz Fiore on 09-09-2021 Glucose Auto test strip (U) [Mass/Vol] Normal mg/dL Normal [facility] Urine hemoglobin detection b y automated test stripOrdered By: Luz Fiore on 09-09-2021 Hemoglobin Auto test strip Ql (U) 2+ Negative [facility] Urine leukocyte esterase det ection by automated test stripOrdered By: Luz Fiore on 03-16-2022 Leukocyte esterase Auto test strip Ql (U) 3+ Negative [facility] Urobilinogen Auto test strip (U) [Mass/Vol]Ordered By: Luz Fiore on 09-09-2021 Urobilinogen (U) [Mass/Vol] Normal mg/dL Normal [facility] pH Auto test strip (U)Ordere d By: Luz Fiore on 09-09-2021 pH (U) 7.0 [pH] 5.0-9.0 [facility] CNPNon 08-17-2021 CNPN Telephone (PENDMN) ----- BHAVNA KOVACS ([id number]) 2 F Date Time Provider Department 08/17/21 CLARITZA BLAND During your visit today, we recorded the following information about you: Jodie Yo [facility] [place] 08/17/2021 2:24 PM Signed Patient has been identified by name and date of : Yes Pending Prescriptions Disp Refills TESTOSTERONE CYPIONATE 200 MG/ML INTRAMUSCULAR OIL 2 mL 5 Sig: INJECT 100 MG (0.5 ml) SQ Q2wks SHAWN Class: C-III PRESTON: No RX INSTRUCTIONS: Patient aware RX will be sent to pharmacy. No need to notify patient. Jodie Arayaers [facility] [place] Date of last visit: 07/03/2020-Baldo Date of next endo appointment: NA 30 day supply. of medication requested [facility] 11:58 AM Signed PA needed for testosterone via onbase Mel Marsh, RN 08/20/2021 3:56 PM Addendum Contacted Nguyen at [phone] to verify insurance information entered in PA tat was started on CoverMyMeds. This information was incorrect; pharmacist was able to fill the prescription with a $23.50 co-pay. Per Pharmacy, the insurance information in the patient's chart is incorrect. Alumnize message sent to patient with scheduling information [...] mg/mL injectionINJECT 100 MG (0.5 ml) SQ [id number]: 2 mLRfl: 1 Prescriptions as of 08/20/2021 [...] Status:Closed by TRINA QUINN on 08/20/21 Normal [facility] Albumin [Mass/volume] in Ser um or PlasmaOrdered By: Tommy Bowen on 08-12-2021 Albumin [Mass/Vol] 4.0 g/dL 3.2-5.5 [facility] Automated erythrocytes count in urine sediment (number/area)Ordered By: Tommy Bowen on 08-12-2021 RBC Auto (Urine sed) [#/Area] Innumerable [HPF] [facility] Automated leukocytes count i n urine sediment (number/area)Ordered By: Tommy Bowen on 08-12-2021 WBC Auto (Urine sed) [#/Area] 5-9 [HPF] [facility] Basophils Auto (Bld) [#/Vol] Ordered By: Tommy Bowen on 08-12-2021 Basophils (Bld) [#/Vol] 0.0 10*3/uL 0.0-0.2 [facility] Basophils/100 WBC Auto (Bld) Ordered By: Tommy Bowen on 08-12-2021 Basophils/100 WBC (Bld) 0.3 % [facility] Bilirubin Test strip Ql (U)O rdered By: Tommy Bowen on 08-12-2021 Bilirubin Ql (U) Negative Negative [facility] Blood hemoglobin measurement (mass/volume)Ordered By: Tommy Bowen on 08-12-2021 Hemoglobin (Bld) [Mass/Vol] 13.9 g/dL 11.8-15.4 [facility] Blood leukocytes automated c ount (number/volume)Ordered By: Tommy Bowen on 08-12-2021 WBC (Bld) [#/Vol] 8.6 10*3/uL 4.5-11.0 [facility] Color Auto (U)Ordered By: Hermes Bowen on 08-12-2021 Color (U) Yellow Yellow [facility] Creatinine and Glomerular fi ltration rate.predicted panel (S/P/Bld)Ordered By: Tommy Bowen on 08-12-2021 Creatinine [Mass/Vol] 0.70 mg/dL 0.44-1.03 [facility] Eosinophils Auto (Bld) [#/Vo l]Ordered By: Tommy Bowen on 08-12-2021 Eosinophils (Bld) [#/Vol] 0.0 10*3/uL 0.0-0.45 [facility] Eosinophils/100 WBC Auto (Bl d)Ordered By: Tommy Bowen on 08-12-2021 Eosinophils/100 WBC (Bld) 0.3 % [facility] Erythrocyte distribution wid th Auto (RBC) [Ratio]Ordered By: Tommy Bowen on 08-12-2021 Erythrocyte distribution width (RBC) [Ratio] 12.7 % 11.9-15.3 [facility] Estimated glomerular filtrat ion rate (GFR) non- AmericanOrdered By: Tommy oBwen on 08-12-2021 GFR/1.73 sq M.predicted among non-blacks MDRD (S/P/Bld) [Vol rate/Area] > 60 mL/Min [facility] Globulin Calc (S) [Mass/Vol] Ordered By: Tommy Bowen on 08-12-2021 Globulin (S) [Mass/Vol] 3.6 g/dL [facility] Glucose Glucometer (BldC) [M ass/Vol]Ordered By: Tommy Bowen on 08-12-2021 Glucose [Mass/Vol] 102 mg/dL [facility] Comment on above: Random Glucose Refer ence Range is dependent on time and content of last meal. Glucose of more than 200 mg/dL in a nonstressed, ambulatory subject supports the diagnosis of Diabetes Mellitus. Hematocrit Auto (Bld) [Volum e fraction]Ordered By: Tommy Bowen on 08-12-2021 Hematocrit (Bld) [Volume fraction] 40.4 % 34.0-46.4 [facility] Ketones Auto test strip (U) [Mass/Vol]Ordered By: Tommy Bowen on 08-12-2021 Ketones (U) [Mass/Vol] Trace Negative [facility] - Hematology and Cell countsOrdered By: Tommy Bowen on 08-12-2021 Nucleated RBC/100 WBC (Bld) [Ratio] 0.1 % 0-0.5 [facility] - UrinalysisOrder ed By: Tommy Bowen on 08-12-2021 Hyaline casts LM Ql (Urine sed) 0-8 [LPF] [facility] Lymphocytes Auto (Bld) [#/Vo l]Ordered By: Tommy Bowen on 08-12-2021 Lymphocytes (Bld) [#/Vol] 2.0 10*3/uL 1.00-4.8 [facility] Lymphocytes/100 WBC Auto (Bl d)Ordered By: Tommy Bowen on 08-12-2021 Lymphocytes/100 WBC (Bld) 23.2 % [facility] MCH Auto (RBC) [Entitic mass ]Ordered By: Tommy Bowen on 08-12-2021 MCH (RBC) [Entitic mass] 30.2 pg 24.7-34.3 [facility] MCHC Auto (RBC) [Mass/Vol]Or dered By: Tommy Bowen on 08-12-2021 MCHC (RBC) [Mass/Vol] 34.5 g/dL 32.0-35.0 [facility] MCV Auto (RBC) [Entitic vol] Ordered By: Tommy Bowen on 08-12-2021 MCV (RBC) [Entitic vol] 87.6 fL 80-100 [facility] Monocytes Auto (Bld) [#/Vol] Ordered By: Tommy Bowen on 08-12-2021 Monocytes (Bld) [#/Vol] 0.6 10*3/uL 0.0-0.8 [facility] Monocytes/100 WBC Auto (Bld) Ordered By: Tommy Bowen on 08-12-2021 Monocytes/100 WBC (Bld) 6.7 % [facility] Neutrophils Auto (Bld) [#/Vo l]Ordered By: Tommy Bowen on 08-12-2021 Neutrophils (Bld) [#/Vol] 6.0 10*3/uL 1.8-7.7 [facility] Neutrophils/100 WBC Auto (Bl d)Ordered By: Tommy Bowen on 08-12-2021 Neutrophils/100 WBC (Bld) 69.5 % [facility] Nitrite Test strip Ql (U)Ord ered By: Tommy Bowen on 08-12-2021 Nitrite Ql (U) Negative Negative [facility] No Panel InformationOrdered By: Tommy Bowen on 08-12-2021 Estimated GFR () > 60 mL/Min [facility] Comment on above: GFR estimated refere nce range: According to KDOQI guidelines, <60 ml/min/1.73m2 is sufficient to diagnose a patient with chronic kidney disease. Pharmacy Creatinine Clearance (Chem 143.12 [facility] Platelet mean volume Auto (B ld) [Entitic vol]Ordered By: Tommy Bowen on 08-12-2021 Platelet mean volume (Bld) [Entitic vol] 7.9 fL 6.3-10.7 [facility] Platelets Auto (Bld) [#/Vol] Ordered By: Tommy Bowen on 08-12-2021 Platelets (Bld) [#/Vol] 315 10*3/uL 150-450 [facility] Protein Auto test strip (U) [Mass/Vol]Ordered By: Tommy Bowen on 08-12-2021 Protein (U) [Mass/Vol] 30 mg/dL Negative [facility] Protein [Mass/volume] in Ser um or PlasmaOrdered By: Tommy Bowen on 08-12-2021 Protein [Mass/Vol] 7.6 g/dL 6.1-7.9 [facility] RBC Auto (Bld) [#/Vol]Ordere d By: Tommy Bowen on 08-12-2021 RBC (Bld) [#/Vol] 4.61 10*6/uL 3.60-5.00 [facility] Serum or plasma alanine white otransferase measurement without P-5'-P (enzymatic activiOrdered By: Tommy Bowen on 08-12-2021 ALT No additional P-5'-P [Catalytic activity/Vol] 11 U/L 10-60 [facility] Serum or plasma albumin/glob ulin mass ratioOrdered By: Tommy Bowen on 08-12-2021 Albumin/Globulin [Mass ratio] 1.1 {ratio} [facility] Serum or plasma alkaline ignacio sphatase measurement (enzymatic activity/volume)Ordered By: Tommy Bowen on 08-12-2021 ALP [Catalytic activity/Vol] 58 U/L 32-92 [facility] Serum or plasma aspartate am inotransferase measurement (enzymatic activity/volume)Ordered By: Tommy Bowen on 08-12-2021 AST [Catalytic activity/Vol] 16 U/L 10-42 [facility] Serum or plasma calcium randi urement (mass/volume)Ordered By: Tommy Bowen on 08-12-2021 Calcium [Mass/Vol] 9.1 mg/dL 8.2-10.2 [facility] Serum or plasma chloride melonie surement (moles/volume)Ordered By: Tommy Bowen on 08-12-2021 Chloride [Moles/Vol] 102 mmol/L 95-114 [facility] Serum or plasma glucose randi urement (mass/volume)Ordered By: Tommy Bowen on 08-12-2021 Glucose [Mass/Vol] 86 mg/dL 70-100 [facility] Comment on above: ADA recommended refe rence rangeRandom Glucose Reference Range is dependent on time and content of last meal. Glucose of more than 200 mg/dL in a nonstressed, ambulatory subject supports the diagnosis of Diabetes Mellitus. Serum or plasma potassium me asurement (moles/volume)Ordered By: Tommy Bowen on 08-12-2021 Potassium [Moles/Vol] 3.6 mmol/L 3.5-5.1 [facility] Serum or plasma sodium measu rement (moles/volume)Ordered By: Tommy Bowen on 08-12-2021 Sodium [Moles/Vol] 136 mmol/L 136-146 [facility] Serum or plasma total biliru bin measurement (mass/volume)Ordered By: Tommy Bowen on 08-12-2021 Bilirubin [Mass/Vol] 0.5 mg/dL 0.3-1.2 [facility] Serum or plasma total carbon dioxide measurement (moles/volume)Ordered By: Tommy Bowen on 08-12-2021 CO2 [Moles/Vol] 23.8 mmol/L 22.0-30.0 [facility] Serum or plasma urea nitroge n measurement (mass/volume)Ordered By: Tommy Bowen on 08-12-2021 Urea nitrogen [Mass/Vol] 6 mg/dL 9- [facility] Specific gravity Auto test s trip (U) [Rel density]Ordered By: Tommy Bowen on 08-12-2021 Specific gravity (U) [Rel density] 1.018 1.001-1.030 [facility] Squamous epithelial cells de tection in urine sediment by light microscopyOrdered By: Tommy Bowen on 08-12-2021 Epithelial cells.squamous LM Ql (Urine sed) 3-4 [HPF] [facility] Urine bacteria detection by automated methodOrdered By: Tommy Bowen on 08-12-2021 Bacteria Auto Ql (U) None seen None Seen [facility] Urine clarity by refractomet ry automatedOrdered By: Tommy Bowen on 08-12-2021 Clarity Refractometry automated (U) Clear Clear [facility] Urine culture routineOrdered By: Tommy Bowen on 08-12-2021 Bacteria identified Cx Nom (U) No Growth 2 Days [facility] Urine glucose measurement by automated test strip (mass/volume)Ordered By: Tommy Bowen on 08-12-2021 Glucose Auto test strip (U) [Mass/Vol] Normal mg/dL Normal [facility] Urine hemoglobin detection b y automated test stripOrdered By: Tommy Bowen on 08-12-2021 Hemoglobin Auto test strip Ql (U) 3+ Negative [facility] Urine leukocyte esterase det ection by automated test stripOrdered By: Tommy Bowen on 08-12-2021 Leukocyte esterase Auto test strip Ql (U) 1+ Negative [facility] Urobilinogen Auto test strip (U) [Mass/Vol]Ordered By: Tommy Bowen on 08-12-2021 Urobilinogen (U) [Mass/Vol] Normal mg/dL Normal [facility] pH Auto test strip (U)Ordere d By: Tommy Bowen on 08-12-2021 pH (U) 8.0 [pH] 5.0-9.0 [facility] Albumin [Mass/volume] in Ser um or PlasmaOrdered By: Tommy Bowen on 08-07-2021 Albumin [Mass/Vol] 4.4 g/dL 3.2-5.5 [facility] Automated erythrocytes count in urine sediment (number/area)Ordered By: Tommy Bowen on 08-07-2021 RBC Auto (Urine sed) [#/Area] 50-100 [HPF] [facility] Automated leukocytes count i n urine sediment (number/area)Ordered By: Tommy Bowen on 08-07-2021 WBC Auto (Urine sed) [#/Area] 10-19 [HPF] [facility] Basophils Auto (Bld) [#/Vol] Ordered By: Tommy Bowen on 08-07-2021 Basophils (Bld) [#/Vol] 0.0 10*3/uL 0.0-0.2 [facility] Basophils/100 WBC Auto (Bld) Ordered By: Tommy Bowen on 08-07-2021 Basophils/100 WBC (Bld) 0.4 % [facility] Bilirubin Test strip Ql (U)O rdered By: Tommy Bowen on 08-07-2021 Bilirubin Ql (U) Negative Negative [facility] Blood hemoglobin measurement (mass/volume)Ordered By: Tommy Bowen on 08-07-2021 Hemoglobin (Bld) [Mass/Vol] 14.1 g/dL 11.8-15.4 [facility] Blood leukocytes automated c ount (number/volume)Ordered By: Tommy Bowen on 08-07-2021 WBC (Bld) [#/Vol] 10.0 10*3/uL 4.5-11.0 [facility] Color Auto (U)Ordered By: Hermes Bowen on 08-07-2021 Color (U) Yellow Yellow [facility] Creatinine and Glomerular fi ltration rate.predicted panel (S/P/Bld)Ordered By: Tommy Bowen on 08-07-2021 Creatinine [Mass/Vol] 0.75 mg/dL 0.44-1.03 [facility] Eosinophils Auto (Bld) [#/Vo l]Ordered By: Tommy Bowen on 08-07-2021 Eosinophils (Bld) [#/Vol] 0.0 10*3/uL 0.0-0.45 [facility] Eosinophils/100 WBC Auto (Bl d)Ordered By: Tommy Bowen on 08-07-2021 Eosinophils/100 WBC (Bld) 0.4 % [facility] Erythrocyte distribution wid th Auto (RBC) [Ratio]Ordered By: Tommy Bowen on 08-07-2021 Erythrocyte distribution width (RBC) [Ratio] 12.7 % 11.9-15.3 [facility] Estimated glomerular filtrat ion rate (GFR) non- AmericanOrdered By: Tommy Bowen on 08-07-2021 GFR/1.73 sq M.predicted among non-blacks MDRD (S/P/Bld) [Vol rate/Area] > 60 mL/Min [facility] Globulin Calc (S) [Mass/Vol] Ordered By: Tommy Bowen on 08-07-2021 Globulin (S) [Mass/Vol] 3.6 g/dL [facility] Hematocrit Auto (Bld) [Volum e fraction]Ordered By: Tommy Bowen on 08-07-2021 Hematocrit (Bld) [Volume fraction] 41.5 % 34.0-46.4 [facility] Ketones Auto test strip (U) [Mass/Vol]Ordered By: Tommy Bowen on 08-07-2021 Ketones (U) [Mass/Vol] Trace Negative [facility] - Hematology and Cell countsOrdered By: Tommy Bowen on 08-07-2021 Nucleated RBC/100 WBC (Bld) [Ratio] 0.0 % 0-0.5 [facility] - UrinalysisOrder ed By: Tommy Bowen on 08-07-2021 Hyaline casts LM Ql (Urine sed) 0-8 [LPF] [facility] Lymphocytes Auto (Bld) [#/Vo l]Ordered By: Tommy Bowen on 08-07-2021 Lymphocytes (Bld) [#/Vol] 2.5 10*3/uL 1.00-4.8 [facility] Lymphocytes/100 WBC Auto (Bl d)Ordered By: Tommy Bowen on 08-07-2021 Lymphocytes/100 WBC (Bld) 25.4 % [facility] MCH Auto (RBC) [Entitic mass ]Ordered By: Tommy Bowen on 08-07-2021 MCH (RBC) [Entitic mass] 29.8 pg 24.7-34.3 [facility] MCHC Auto (RBC) [Mass/Vol]Or dered By: Tommy Bowen on 08-07-2021 MCHC (RBC) [Mass/Vol] 33.9 g/dL 32.0-35.0 [facility] MCV Auto (RBC) [Entitic vol] Ordered By: Tommy Bowen on 08-07-2021 MCV (RBC) [Entitic vol] 87.7 fL 80-100 [facility] Monocytes Auto (Bld) [#/Vol] Ordered By: Tommy Bowen on 08-07-2021 Monocytes (Bld) [#/Vol] 0.8 10*3/uL 0.0-0.8 [facility] Monocytes/100 WBC Auto (Bld) Ordered By: Tommy Bowen on 08-07-2021 Monocytes/100 WBC (Bld) 7.8 % [facility] Neutrophils Auto (Bld) [#/Vo l]Ordered By: Tommy Bowen on 08-07-2021 Neutrophils (Bld) [#/Vol] 6.6 10*3/uL 1.8-7.7 [facility] Neutrophils/100 WBC Auto (Bl d)Ordered By: Tommy Bowen on 08-07-2021 Neutrophils/100 WBC (Bld) 66.0 % [facility] Nitrite Test strip Ql (U)Ord ered By: Tommy Bowen on 08-07-2021 Nitrite Ql (U) Negative Negative [facility] No Panel InformationOrdered By: Tommy Bowen on 08-07-2021 Estimated GFR () > 60 mL/Min [facility] Comment on above: GFR estimated refere nce range: According to KDOQI guidelines, <60 ml/min/1.73m2 is sufficient to diagnose a patient with chronic kidney disease. Pharmacy Creatinine Clearance (Chem N/A [facility] Platelet mean volume Auto (B ld) [Entitic vol]Ordered By: Tommy Bowen on 08-07-2021 Platelet mean volume (Bld) [Entitic vol] 7.5 fL 6.3-10.7 [facility] Platelets Auto (Bld) [#/Vol] Ordered By: Tommy Bowen on 08-07-2021 Platelets (Bld) [#/Vol] 325 10*3/uL 150-450 [facility] Protein Auto test strip (U) [Mass/Vol]Ordered By: Tommy Bowen on 08-07-2021 Protein (U) [Mass/Vol] 30 mg/dL Negative [facility] Protein [Mass/volume] in Ser um or PlasmaOrdered By: Tommy Bowen on 08-07-2021 Protein [Mass/Vol] 8.0 g/dL 6.1-7.9 [facility] RBC Auto (Bld) [#/Vol]Ordere d By: oTmmy Bowen on 08-07-2021 RBC (Bld) [#/Vol] 4.73 10*6/uL 3.60-5.00 [facility] Serum or plasma alanine white otransferase measurement without P-5'-P (enzymatic activiOrdered By: Tommy Bowen on 08-07-2021 ALT No additional P-5'-P [Catalytic activity/Vol] 9 U/L 10-60 [facility] Serum or plasma albumin/glob ulin mass ratioOrdered By: Tommy Bowen on 08-07-2021 Albumin/Globulin [Mass ratio] 1.2 {ratio} [facility] Serum or plasma alkaline ignacio sphatase measurement (enzymatic activity/volume)Ordered By: Tommy Bowen on 08-07-2021 ALP [Catalytic activity/Vol] 56 U/L 32-92 [facility] Serum or plasma aspartate am inotransferase measurement (enzymatic activity/volume)Ordered By: Tommy Bowen on 08-07-2021 AST [Catalytic activity/Vol] 19 U/L 10-42 [facility] Serum or plasma calcium randi urement (mass/volume)Ordered By: Tommy Bowen on 08-07-2021 Calcium [Mass/Vol] 9.3 mg/dL 8.2-10.2 [facility] Serum or plasma chloride melonie surement (moles/volume)Ordered By: Tommy Bowen on 08-07-2021 Chloride [Moles/Vol] 102 mmol/L 95-114 [facility] Serum or plasma glucose randi urement (mass/volume)Ordered By: Tommy Bowen on 08-07-2021 Glucose [Mass/Vol] 88 mg/dL 70-100 [facility] Comment on above: ADA recommended refe rence rangeRandom Glucose Reference Range is dependent on time and content of last meal. Glucose of more than 200 mg/dL in a nonstressed, ambulatory subject supports the diagnosis of Diabetes Mellitus. Serum or plasma potassium me asurement (moles/volume)Ordered By: Tommy Bowen on 08-07-2021 Potassium [Moles/Vol] 3.7 mmol/L 3.5-5.1 [facility] Serum or plasma sodium measu rement (moles/volume)Ordered By: Tommy Bowen on 08-07-2021 Sodium [Moles/Vol] 135 mmol/L 136-146 [facility] Serum or plasma total biliru bin measurement (mass/volume)Ordered By: Tommy Bowen on 08-07-2021 Bilirubin [Mass/Vol] 0.6 mg/dL 0.3-1.2 [facility] Serum or plasma total carbon dioxide measurement (moles/volume)Ordered By: Tommy Bowen on 08-07-2021 CO2 [Moles/Vol] 21.2 mmol/L 22.0-30.0 [facility] Serum or plasma urea nitroge n measurement (mass/volume)Ordered By: Tommy Bowen on 08-07-2021 Urea nitrogen [Mass/Vol] 10 mg/dL 9- [facility] Specific gravity Auto test s trip (U) [Rel density]Ordered By: Tommy Bowen on 08-07-2021 Specific gravity (U) [Rel density] 1.018 1.001-1.030 [facility] Squamous epithelial cells de tection in urine sediment by light microscopyOrdered By: Tommy Bowen on 08-07-2021 Epithelial cells.squamous LM Ql (Urine sed) 3-4 [HPF] [facility] Urine bacteria detection by automated methodOrdered By: Tommy Bowen on 08-07-2021 Bacteria Auto Ql (U) None seen None Seen [facility] Urine clarity by refractomet ry automatedOrdered By: Tommy Bowen on 08-07-2021 Clarity Refractometry automated (U) Clear Clear [facility] Urine culture routineOrdered By: Tommy Bowen on 08-07-2021 Bacteria identified Cx Nom (U) No Growth 2 Days [facility] Urine glucose measurement by automated test strip (mass/volume)Ordered By: Tommy Bowen on 08-07-2021 Glucose Auto test strip (U) [Mass/Vol] Normal mg/dL Normal [facility] Urine hemoglobin detection b y automated test stripOrdered By: Tommy Bowen on 08-07-2021 Hemoglobin Auto test strip Ql (U) 2+ Negative [facility] Urine leukocyte esterase det ection by automated test stripOrdered By: Tommy Bowen on 08-07-2021 Leukocyte esterase Auto test strip Ql (U) 2+ Negative [facility] Urobilinogen Auto test strip (U) [Mass/Vol]Ordered By: Tommy Bowen on 08-07-2021 Urobilinogen (U) [Mass/Vol] Normal mg/dL Normal [facility] pH Auto test strip (U)Ordere d By: Tommy Bowen on 08-07-2021 pH (U) 7.0 [pH] 5.0-9.0 [facility] Albumin [Mass/volume] in Ser um or PlasmaOrdered By: Bobby Gallagher on 07-10-2021 Albumin [Mass/Vol] 3.8 g/dL 3.2-5.5 [facility] Automated erythrocytes count in urine sediment (number/area)Ordered By: Bobby Gallagher on 07-10-2021 RBC Auto (Urine sed) [#/Area] Innumerable [HPF] [facility] Automated leukocytes count i n urine sediment (number/area)Ordered By: Bobby Gallagher on 07-10-2021 WBC Auto (Urine sed) [#/Area] 5-9 [HPF] [facility] Basophils Auto (Bld) [#/Vol] Ordered By: Bobby Gallagher on 07-10-2021 Basophils (Bld) [#/Vol] 0.0 10*3/uL 0.0-0.2 [facility] Basophils/100 WBC Auto (Bld) Ordered By: Bobby Gallagher on 07-10-2021 Basophils/100 WBC (Bld) 0.6 % [facility] Bilirubin Test strip Ql (U)O rdered By: Bobby Gallagher on 07-10-2021 Bilirubin Ql (U) Negative Negative [facility] Blood hemoglobin measurement (mass/volume)Ordered By: Bobby Gallagher on 07-10-2021 Hemoglobin (Bld) [Mass/Vol] 13.2 g/dL 11.8-15.4 [facility] Blood leukocytes automated c ount (number/volume)Ordered By: Bobby Gallagher on 07-10-2021 WBC (Bld) [#/Vol] 5.8 10*3/uL 4.5-11.0 [facility] Color Auto (U)Ordered By: Victorino Gallagher on 07-10-2021 Color (U) Red Yellow [facility] Creatinine and Glomerular fi ltration rate.predicted panel (S/P/Bld)Ordered By: Bobby Gallagher on 07-10-2021 Creatinine [Mass/Vol] 0.80 mg/dL 0.44-1.03 [facility] Eosinophils Auto (Bld) [#/Vo l]Ordered By: Bobby Gallagher on 07-10-2021 Eosinophils (Bld) [#/Vol] 0.1 10*3/uL 0.0-0.45 [facility] Eosinophils/100 WBC Auto (Bl d)Ordered By: Bobby Gallagher on 07-10-2021 Eosinophils/100 WBC (Bld) 1.4 % [facility] Erythrocyte distribution wid th Auto (RBC) [Ratio]Ordered By: Bobby Gallagher on 07-10-2021 Erythrocyte distribution width (RBC) [Ratio] 13.0 % 11.9-15.3 [facility] Estimated glomerular filtrat ion rate (GFR) non- AmericanOrdered By: Bobby Gallagher on 07-10-2021 GFR/1.73 sq M.predicted among non-blacks MDRD (S/P/Bld) [Vol rate/Area] > 60 mL/Min [facility] Globulin Calc (S) [Mass/Vol] Ordered By: Bobby Gallagher on 07-10-2021 Globulin (S) [Mass/Vol] 2.7 g/dL [facility] Hematocrit Auto (Bld) [Volum e fraction]Ordered By: Bobby Gallagher on 07-10-2021 Hematocrit (Bld) [Volume fraction] 38.6 % 34.0-46.4 [facility] Ketones Auto test strip (U) [Mass/Vol]Ordered By: Bobby Gallagher on 07-10-2021 Ketones (U) [Mass/Vol] Negative Negative [facility] Laboratory - Chemistry and C hemistry - challengeOrdered By: Bobby Gallagher on 07-10-2021 Magnesium [Mass/Vol] 2.0 mg/dL 1.6-2.6 [facility] Laboratory - Hematology and Cell countsOrdered By: Bobby Gallagher on 07-10-2021 Nucleated RBC/100 WBC (Bld) [Ratio] 0.3 % 0-0.5 [facility] - UrinalysisOrder ed By: Bobby Gallagher on 07-10-2021 Hyaline casts LM Ql (Urine sed) 0-8 [LPF] [facility] Lymphocytes Auto (Bld) [#/Vo l]Ordered By: Bobby Gallagher on 07-10-2021 Lymphocytes (Bld) [#/Vol] 2.0 10*3/uL 1.00-4.8 [facility] Lymphocytes/100 WBC Auto (Bl d)Ordered By: Bobby Gallagher on 07-10-2021 Lymphocytes/100 WBC (Bld) 34.4 % [facility] MCH Auto (RBC) [Entitic mass ]Ordered By: Bobby Gallagher on 07-10-2021 MCH (RBC) [Entitic mass] 30.9 pg 24.7-34.3 [facility] MCHC Auto (RBC) [Mass/Vol]Or dered By: Bobby Gallagher on 07-10-2021 MCHC (RBC) [Mass/Vol] 34.2 g/dL 32.0-35.0 [facility] MCV Auto (RBC) [Entitic vol] Ordered By: Bobyb Gallagher on 07-10-2021 MCV (RBC) [Entitic vol] 90.3 fL 80-100 [facility] Monocytes Auto (Bld) [#/Vol] Ordered By: Bobby Gallagher on 07-10-2021 Monocytes (Bld) [#/Vol] 0.4 10*3/uL 0.0-0.8 [facility] Monocytes/100 WBC Auto (Bld) Ordered By: Bobby Gallagher on 07-10-2021 Monocytes/100 WBC (Bld) 7.4 % [facility] Neutrophils Auto (Bld) [#/Vo l]Ordered By: Bobby Gallagher on 07-10-2021 Neutrophils (Bld) [#/Vol] 3.3 10*3/uL 1.8-7.7 [facility] Neutrophils/100 WBC Auto (Bl d)Ordered By: Bobby Gallagher on 07-10-2021 Neutrophils/100 WBC (Bld) 56.2 % [facility] Nitrite Test strip Ql (U)Ord ered By: Bobby Gallagher on 07-10-2021 Nitrite Ql (U) Negative Negative [facility] No Panel InformationOrdered By: Bobby Gallagher on 07-10-2021 Estimated GFR () > 60 mL/Min [facility] Comment on above: GFR estimated refere nce range: According to KDOQI guidelines, <60 ml/min/1.73m2 is sufficient to diagnose a patient with chronic kidney disease. Pharmacy Creatinine Clearance (Chem 84.65 [facility] Phosphate [Mass/volume] in S alexis or PlasmaOrdered By: Bobby Gallagher on 07-10-2021 Phosphate [Mass/Vol] 2.6 mg/dL 2.5-4.6 [facility] Platelet mean volume Auto (B ld) [Entitic vol]Ordered By: Bobby Gallagher on 07-10-2021 Platelet mean volume (Bld) [Entitic vol] 8.2 fL 6.3-10.7 [facility] Platelets Auto (Bld) [#/Vol] Ordered By: Bobby Gallagher on 07-10-2021 Platelets (Bld) [#/Vol] 243 10*3/uL 150-450 [facility] Protein Auto test strip (U) [Mass/Vol]Ordered By: Bobby Gallagher on 07-10-2021 Protein (U) [Mass/Vol] Trace mg/dL Negative [facility] Protein [Mass/volume] in Ser um or PlasmaOrdered By: Bobby Gallagher on 07-10-2021 Protein [Mass/Vol] 6.5 g/dL 6.1-7.9 [facility] RBC Auto (Bld) [#/Vol]Ordere d By: Bobby Gallagher on 07-10-2021 RBC (Bld) [#/Vol] 4.27 10*6/uL 3.60-5.00 [facility] Serum or plasma alanine white otransferase measurement without P-5'-P (enzymatic activiOrdered By: Bobby Gallagher on 07-10-2021 ALT No additional P-5'-P [Catalytic activity/Vol] 9 U/L 10-60 [facility] Serum or plasma albumin/glob ulin mass ratioOrdered By: Bobby Gallagher on 07-10-2021 Albumin/Globulin [Mass ratio] 1.4 {ratio} [facility] Serum or plasma alkaline ignacio sphatase measurement (enzymatic activity/volume)Ordered By: Bobby Gallagher on 07-10-2021 ALP [Catalytic activity/Vol] 43 U/L 32-92 [facility] Serum or plasma aspartate am inotransferase measurement (enzymatic activity/volume)Ordered By: Bobby Gallagher on 07-10-2021 AST [Catalytic activity/Vol] 19 U/L 10-42 [facility] Serum or plasma calcium randi urement (mass/volume)Ordered By: Bobby Gallagher on 07-10-2021 Calcium [Mass/Vol] 9.0 mg/dL 8.2-10.2 [facility] Serum or plasma chloride melonie surement (moles/volume)Ordered By: Bobby Gallagher on 07-10-2021 Chloride [Moles/Vol] 103 mmol/L 95-114 [facility] Serum or plasma glucose randi urement (mass/volume)Ordered By: Bobby Gallagher on 07-10-2021 Glucose [Mass/Vol] 96 mg/dL 70-100 [facility] Comment on above: ADA recommended refe rence rangeRandom Glucose Reference Range is dependent on time and content of last meal. Glucose of more than 200 mg/dL in a nonstressed, ambulatory subject supports the diagnosis of Diabetes Mellitus. Serum or plasma potassium me asurement (moles/volume)Ordered By: Bobby Gallagher on 07-10-2021 Potassium [Moles/Vol] 3.4 mmol/L 3.5-5.1 [facility] Serum or plasma sodium measu rement (moles/volume)Ordered By: Bobby Gallagher on 07-10-2021 Sodium [Moles/Vol] 140 mmol/L 136-146 [facility] Serum or plasma total biliru bin measurement (mass/volume)Ordered By: Bobby Gallagher on 07-10-2021 Bilirubin [Mass/Vol] 0.6 mg/dL 0.3-1.2 [facility] Serum or plasma total carbon dioxide measurement (moles/volume)Ordered By: Bobby Gallagher on 07-10-2021 CO2 [Moles/Vol] 25.5 mmol/L 22.0-30.0 [facility] Serum or plasma urea nitroge n measurement (mass/volume)Ordered By: Bobby Gallagher on 07-10-2021 Urea nitrogen [Mass/Vol] 6 mg/dL 9-23 [facility] Specific gravity Auto test s trip (U) [Rel density]Ordered By: Bobby Gallagher on 07-10-2021 Specific gravity (U) [Rel density] 1.007 1.001-1.030 [facility] Squamous epithelial cells de tection in urine sediment by light microscopyOrdered By: Bobby Gallagher on 07-10-2021 Epithelial cells.squamous LM Ql (Urine sed) 1-2 [HPF] [facility] Urine bacteria detection by automated methodOrdered By: Bobby Gallagher on 07-10-2021 Bacteria Auto Ql (U) 2+ None Seen [facility] Urine clarity by refractomet ry automatedOrdered By: Bobby Gallagher on 07-10-2021 Clarity Refractometry automated (U) Clear Clear [facility] Urine culture routineOrdered By: Bobby Gallagher on 07-10-2021 Bacteria identified Cx Nom (U) Escherichia coli [facility] Urine glucose measurement by automated test strip (mass/volume)Ordered By: Bobby Gallagher on 07-10-2021 Glucose Auto test strip (U) [Mass/Vol] Normal mg/dL Normal [facility] Urine hemoglobin detection b y automated test stripOrdered By: Bobby Gallagher on 07-10-2021 Hemoglobin Auto test strip Ql (U) 3+ Negative [facility] Urine leukocyte esterase det ection by automated test stripOrdered By: Bobby Gallagher on 07-10-2021 Leukocyte esterase Auto test strip Ql (U) 2+ Negative [facility] Urobilinogen Auto test strip (U) [Mass/Vol]Ordered By: Bobby Gallagher on 07-10-2021 Urobilinogen (U) [Mass/Vol] Normal mg/dL Normal [facility] pH Auto test strip (U)Ordere d By: Bobby Gallagher on 07-10-2021 pH (U) 7.5 [pH] 5.0-9.0 [facility] Keppraon 03-24-2021 KEPP 13 ug/mL Normal [facility] Comment on above: Result Comment: A [...] toxicity is not known. Performed By: #### K DYLON RON #### [address] [place] [address] [employer]itter: Jhon Rios MD #### MG ELAN, CDP #### [facility] [address] [place] [address] Early Morning Babysitter: Jude Nieves DO Lamotrigineon 3 Lamotrigine <1.0 Low 3.0-15.0 [facility] Comment on above: Result Comment: Neither [...] By: #### DYLON GOMEZ #### [facility] [employer] [address] [place] [address] [employer]itter: Jhon Rios MD #### MG ELAN, CDP #### [facility] [address] [place] [address] Early Morning Babysitter: Jude Nieves DO CBC with Diffon 9797 Abs. Basophil 0.00 k/uL Normal 0.0-0.2 [facility] Comment on above: Performed By: #### DYLON GOMEZ #### [facility] [employer] [address] [place] [address] [employer] Bab[employer]itter: Jhon Rios MD #### MG ELAN, CDP #### [facility] [address] [place] [address] Early Morning Babysitter: Jude Nieves DO Abs.Neutrophil (Seg) 4.60 k/uL Normal 1.3-9.1 [facility] Comment on above: Performed By: #### DYLON GOMEZ #### [facility] [employer] [address] [place] [address] [employer] Bab[employer]itter: Jhon Rios MD #### CP, MG, CDP #### [facility] [address] [place] [address] Early Morning Babysitter: Jude Nieves DO Basophils/100 WBC (Bld) 1 % Normal 0-2 [facility] Comment on above: Performed By: #### DYLON GOMEZ #### [address] [address] [employer] Morning Bab[employer]itter: Jhon Rios MD #### ELAN, MG, CDP #### [facility] [address] [place] [address] [employer] Morning Bab[employer]itter: Jude Nieves DO Eosinophils (Bld) [#/Vol] 0.10 10*3/uL Normal 0.0-0.4 [facility] Comment on above: Performed By: #### DYLON GOMEZ #### [address] [address] Early Morning Babysitter: Jhon Rios MD #### MG ELAN, CDP #### [facility] [address] [place] [address] [employer] Morning Babysitter: Jude Nieves DO Eosinophils/100 WBC (Bld) 1 % Normal 0-4 [facility] Comment on above: Performed By: #### DYLON GOMEZ #### [address] [address] Early Morning Babysitter: Jhon Rios MD #### ELAN, MG, CDP #### [facility] [address] [place] [address] [employer] Morning Bab[employer]itter: Jude Nieves DO Erythrocyte distribution width (RBC) [Ratio] 12.4 % Normal 11.5-14.9 [facility] Comment on above: Performed By: #### DYLON GOMEZ #### [facility] [address] [place] [address] Early Morning Babysitter: Jhon Rios MD #### MG ELAN, CDP #### [facility] [address] [place] [address] Early Morning Babysitter: Jude Nieves DO Hematocrit (Bld) [Volume fraction] 43.3 % Normal 36-46 [facility] Comment on above: Performed By: #### DYLON GOMEZ #### [address] [address] Early Morning Babysitter: Jhon Rios MD #### MG ELAN, CDP #### [facility] [address] [place] [address] Early Morning Babysitter: Jude Nieves DO Hemoglobin (Bld) [Mass/Vol] 14.8 g/dL Normal 12.0-16.0 [facility] Comment on above: Performed By: #### DYLON GOMEZ #### [address] [address] Early Morning Babysitter: Jhon Rios MD #### MG ELAN, CDP #### [facility] [address] [place] [address] Early Morning Babysitter: Jude Nieves DO Lymphocytes (Bld) [#/Vol] 2.90 10*3/uL Normal 1.2-5.2 [facility] Comment on above: Performed By: #### DYLON GOMEZ #### [address] [address] Early Morning Babysitter: Jhon Rios MD #### ELAN MG, CDP #### [facility] [address] [place] [address] Early Morning Babysitter: Jude Nieves DO Lymphocytes/100 WBC (Bld) 36 % Normal 25-45 [facility] Comment on above: Performed By: #### K BERTO RONO #### [facility] [address] [place] [address] Early Morning Babysitter: Jhon Rios MD #### CP, MG, CDP #### [facility] [address] [place] [address] Early Morning Babysitter: Jude Nieves DO MCH (RBC) [Entitic mass] 30.8 pg Normal 26-34 [facility] Comment on above: Performed By: #### BERTO GOMEZO #### [address] [address] Early Morning Babysitter: Jhon Rios MD #### ELAN, MG, CDP #### [facility] [address] [place] [address] Early Morning Babysitter: Jude Nieves DO MCHC (RBC) [Mass/Vol] 34.1 g/dL Normal 31-37 [facility] Comment on above: Performed By: #### DYLON GOMEZ #### [address] [address] Early Morning Babysitter: Jhon Rios MD #### ELAN, MG, CDP #### [facility] [address] [place] [address] Early Morning Babysitter: Jude Nieves DO MCV (RBC) [Entitic vol] 90.1 fL Normal 80-100 [facility] Comment on above: Performed By: #### DYLON GOMEZ #### [address] [address] Early Morning Babysitter: Jhon Rios MD #### CP, MG, CDP #### [facility] [address] [place] [address] Early Morning Babysitter: Jude Nieves DO Monocytes (Bld) [#/Vol] 0.50 10*3/uL Normal 0.1-1.3 [facility] Comment on above: Performed By: #### DYLON GOMEZ #### [address] [address] Early Morning Babysitter: Jhon Rios MD #### CP, MG, CDP #### [facility] [address] [place] [address] Early Morning Babysitter: Jude Nieves DO Monocytes/100 WBC (Bld) 6 % Normal 2-8 [facility] Comment on above: Performed By: #### DYLON GOMEZ #### [address] [address] Early Morning Babysitter: Jhon Rios MD #### ELAN, MG, CDP #### [facility] [address] [place] [address] Early Morning Babysitter: Jdue Nieves DO Neutrophil (Seg) 56 % Normal 34-64 [facility] Comment on above: Performed By: #### DYLON GOMEZ #### [address] [address] Early Morning Babysitter: Jhon Rios MD #### ELAN, MG, CDP #### [facility] [address] [place] [address] Early Morning Babysitter: Jude Nieves DO Platelet mean volume (Bld) [Entitic vol] 7.4 fL Normal 6.0-12.0 [facility] Comment on above: Performed By: #### DYLON GOMEZ #### [address] [address] Early Morning Babysitter: Jhon Rios MD #### CP, MG, CDP #### [facility] [address] [place] [address] Early Morning Babysitter: Jude Nieves DO Platelets (Bld) [#/Vol] 279 10*3/uL Normal 150-450 [facility] Comment on above: Performed By: ###DYLON ALTAMIRANO #### [address] [address] Early Morning Babysitter: Jhon Rios MD #### CP, MG, CDP #### [facility] [address] [place] [address] Early Morning Babysitter: Jude Nieves DO RBC (Bld) [#/Vol] 4.81 10*6/uL Normal 4.0-5.2 [facility] Comment on above: Performed By: #### DYLON GOMEZ #### [address] [address] Early Morning Babysitter: Jhon Rios MD #### ELAN MG, CDP #### [facility] [address] [place] [address] Early Morning Babysitter: Jude Nieves DO WBC (Bld) [#/Vol] 8.1 10*3/uL Normal 4.5-13.5 [facility] Comment on above: Performed By: #### DYLON GOMEZ #### [address] [address] Early Morning Babysitter: Jhon Rios MD #### ELAN, MG, CDP #### [facility] [address] [place] [address] Early Morning Babysitter: Jude Nieves DO Abs.Imm.Granulocyte NOT REPORTED Normal 0.00-0.30 [facility] Comment on above: Performed By: #### DYLON GOMEZ #### [address] [address] Early Morning Babysitter: Jhon Rios MD #### ELAN MG, CDP #### [facility] [address] [place] [address] Early Morning Babysitter: Jude Nieves DO Auto Diff Performed NOT REPORTED Normal [facility] Comment on above: Performed By: #### DYLON GOMEZ #### [address] [address] Early Morning Babysitter: Jhon Rios MD #### CP, MG, CDP #### [facility] [address] [place] [address] Early Morning Babysitter: Jude Nieves DO Immature Granulocyte NOT REPORTED Normal [address] [place] [address] Comment on above: Performed By: #### DYLON GOMEZ #### [address] [address] Early Morning Babysitter: Jhon Rios MD #### CP, MG, CDP #### [facility] [address] [place] [address] Early Morning Babysitter: Jude Nieves DO NRBC Automated NOT REPORTED Normal [facility] Comment on above: Performed By: #### DYLON GOMEZ #### [address] [address] Early Morning Babysitter: Jhon Rios MD #### ELAN, MG, CDP #### [facility] [address] [place] [address] Early Morning Babysitter: Jude Nieves DO Platelet Estimate NOT REPORTED Normal [facility] Comment on above: Performed By: #### DYLON GOMEZ #### [address] [address] Early Morning Babysitter: Jhon Rios MD #### CP, MG, CDP #### [facility] [address] [place] [address] Early Morning Babysitter: Jude Nieves DO RBC morphology finding Nom (Bld) NOT REPORTED Normal [facility] Comment on above: Performed By: #### DYLON GOMEZ #### [facility] [place] [address] Early Morning Babysitter: Jhon Rios MD #### CP, MG, CDP #### [facility] [address] [place] [address] Early Morning Babysitter: Jude Nieves DO WBC Morphology NOT REPORTED Normal [facility] Comment on above: Performed By: #### DYLON GOMEZ #### [address] [address] Early Morning Babysitter: Jhon Rios MD #### CP, MG, CDP #### [facility] [address] [place] [address] Early Morning Babysitter: Jude Nieves DO Comp Metabolic Profon 2020 (cont.) Normal [facility] Comment on above: Result Comment: Aver age GFR for <20 years old not available. Chronic Kidney Disease: <60 mL/min/1.73sq m Kidney failure: <15 mL/min/1.73sq m eGFR calculated using average adult body mass. Additional eGFR calculator available at: [email or web address] Performed By: #### DYLON GOMEZ #### [address] [address] Early Morning Babysitter: Jhon Rios MD #### CP, MG, CDP #### [facility] [address] [place] [address] Early Morning Babysitter: Jude Nieves DO Albumin [Mass/Vol] 4.6 g/dL Normal 3.5-5.2 [facility] Comment on above: Performed By: #### DYLON GOMEZ #### [facility] [address] [place] [address] Early Morning Babysitter: Jhon Rios MD #### CP, MG, CDP #### [facility] [address] [place] [address] Early Morning Babysitter: Jude Nieves DO Alkaline Phos 67 U/L Normal 35-104 [facility] Comment on above: Performed By: #### DYLON GOMEZ #### [address] [address] Early Morning Babysitter: Jhon Rios MD #### CP, MG, CDP #### [facility] [address] [place] [address] Early Morning Babysitter: Jude Nieves DO ALT [Catalytic activity/Vol] 10 U/L Normal 5-33 [facility] Comment on above: Performed By: #### DYLON GOMEZ #### [address] [address] Early Morning Babysitter: Jhon Rios MD #### CP, MG, CDP #### [facility] [address] [place] [address] Early Morning Babysitter: Jude Nieves DO Anion gap [Moles/Vol] 10 mmol/L Normal 9-17 [facility] Comment on above: Performed By: #### DYLON GOMEZ #### [address] [address] Early Morning Babysitter: Jhon Rios MD #### CP, MG, CDP #### [facility] [address] [place] [address] Early Morning Babysitter: Jude Nieves DO AST [Catalytic activity/Vol] 12 U/L Normal <32 [facility] Comment on above: Performed By: #### BERTO GOMEZO #### [address] [address] Early Morning Babysitter: Jhon Rios MD #### CP, MG, CDP #### [facility] [address] [place] [address] Early Morning Babysitter: Jude Nieves DO Bilirubin [Mass/Vol] 0.40 mg/dL Normal 0.3-1.2 [facility] Comment on above: Performed By: #### DYLON GOMEZ #### [address] [address] Early Morning Babysitter: Jhon Rios MD #### CP, MG, CDP #### [facility] [address] [place] [address] Early Morning Babysitter: Jude Nieves DO Calcium [Mass/Vol] 9.3 mg/dL Normal 8.6-10.4 [facility] Comment on above: Performed By: #### DYLON GOMEZ #### [address] [address] Early Morning Babysitter: Jhon Rios MD #### ELAN, MG, CDP #### [facility] [place] [address] Early Morning Babysitter: Jude Nieves DO Chloride [Moles/Vol] 101 mmol/L Normal 98-107 [facility] Comment on above: Performed By: #### DYLON GOMEZ #### [address] [address] Early Morning Babysitter: Jhon Rios MD #### CP, MG, CDP #### [facility] [place] [address] Early Morning Babysitter: Jude Nieves DO CO2 [Moles/Vol] 25 mmol/L Normal 20-31 [facility] Comment on above: Performed By: #### DYLON GOMEZ #### [address] [address] Early Morning Babysitter: Jhon Rios MD #### ELAN, MG, CDP #### [facility] [address] [place] [address] Early Morning Babysitter: Jude Nieves DO Creatinine [Mass/Vol] 0.71 mg/dL Normal 0.50-0.90 [facility] [place] [facility] Comment on above: Performed By: #### DYLON GOMEZ #### [address] [address] Early Morning Babysitter: Jhon Rios MD #### ELAN MG, CDP #### [facility] [address] [place] [address] Early Morning Babysitter: Jude Nieves DO GFR,non Amer Pediatric GFR requi res additional information. Refer to DEP website for Normal >60 [facility] Comment on above: Result Comment: calc ulator. Performed By: #### DYLON GOMEZ #### [address] [address] Early Morning Babysitter: Jhon Rios MD #### MG ELAN, CDP #### [facility] [address] [place] [address] Early Morning Babysitter: Jude Nieves DO Glucose [Mass/Vol] 90 mg/dL Normal 70-99 [facility] Comment on above: Performed By: #### DYLON GOMEZ #### [address] [address] Early Morning Babysitter: Jhon Rios MD #### ELAN MG, CDP #### [facility] [address] [place] [address] Early Morning Babysitter: Jude Nieves DO Potassium [Moles/Vol] 3.8 mmol/L Normal 3.7-5.3 [facility] [place] [facility] Comment on above: Performed By: #### K ARIADNE, LAMO #### [address] [place] [address] Early Morning Babysitter: Jhon Rios MD #### ELAN, MG, CDP #### [facility] [address] [place] [address] Early Morning Babysitter: Jude Nieves DO Protein [Mass/Vol] 7.8 g/dL Normal 6.4-8.3 [facility] Comment on above: Performed By: #### K ARIADNE LAMO #### [address] [address] Early Morning Babysitter: Jhon Rios MD #### MG ELAN, CDP #### [facility] [address] [place] [address] Early Morning Babysitter: Jude Nieves DO Sodium [Moles/Vol] 136 mmol/L Normal 135-144 [facility] Comment on above: Performed By: #### Cielo RON LAMO #### [address] [address] Early Morning Babysitter: Jhon Rios MD #### MG ELAN, CDP #### [facility] [address] [place] [address] Early Morning Babysitter: Jude Nieves DO Urea nitrogen [Mass/Vol] 11 mg/dL Normal 6-20 [facility] Comment on above: Performed By: #### Cielo RON, LAMO #### [address] [address] Early Morning Babysitter: Jhon Rios MD #### ELAN, , CDP #### [facility] [address] [place] [address] Early Morning Babysitter: Jude Nieves DO Albumin/Glob Ratio NOT REPORTED Normal 1.0-2.5 [facility] Comment on above: Performed By: #### K ARIADNE, LAMO #### [facility] [address] [place] [address] Early Morning Babysitter: Jhon Rios MD #### CP, MG, CDP #### [facility] [address] [place] [address] Early Morning Babysitter: Jude Nieves DO BUN/CRE Ratio NOT REPORTED Normal 9-20 [facility] Comment on above: Performed By: #### K ARIADNE, LAMO #### [facility] [address] [place] [address] Early Morning Babysitter: Jhon Rios MD #### ELAN, MG, CDP #### [facility] [address] [place] [address] Early Morning Babysitter: Jude Nieves DO GFR, Amer NOT REPORTED Normal >60 [facility] Comment on above: Performed By: #### Cielo RON, LAMO #### [address] [address] Early Morning Babysitter: Jhon Rios MD #### ELAN, MG, CDP #### [facility] [address] [place] [address] Early Morning Babysitter: Jude Nieves DO Staging: NOT REPORTED Normal [facility] Comment on above: Performed By: #### K ARIADNE, LAMO #### [address] [address] Early Morning Babysitter: Jhon Rios MD #### CP, MG, CDP #### [facility] [address] [place] [address] Early Morning Babysitter: Jude Nieves DO HCG, ,Urineon 03-23 Beta HCG ( test) Ql (U) Negative Normal NEG [facility] Comment on above: Result Comment: Spec [...] By: #### U HCG #### [facility] [address] [facility] [place] [address] Early Morning Babysitter: Jude Nieves DO Magnesiumon 03-23-2021 Magnesium [Mass/Vol] 2.2 mg/dL Normal 1.7-2.2 [facility] Comment on above: Performed By: #### K DYLON RON #### [facility] [address] [place], [place] [phone] Early Morning Babysitter: Jhon Rios MD #### CP, MG, CDP #### [facility] [address] [facility]. [place], [place] [phone] Early Morning Babysitter: Jude Nieves DO CNOVon 12-10-2020 CNOV Office Visit (PLASMN ) ----- BHAVNA KOVACS ([id number]) 2 F Date Time Provider Department 12/10/20 [...] Past Histories independently gathered by the clinical administrative support technician and the remaining scribed note accurately describes [...] post-traumatic heada (more content not included)... Normal [facility] Basic Metabolic Panlon 12-05 Anion gap [Moles/Vol] 14 mmol/L Normal 9-18 [facility] Comment on above: Performed By: #### C NARCISO, BMP ####[place] [address] [place], [place] [phone] Calcium [Mass/Vol] 9.0 mg/dL Normal 8.5-10.2 [facility] Comment on above: Performed By: #### C NARCISO, BMP ####[place] [address] [place], [place] [phone] Chloride [Moles/Vol] 104 mmol/L Normal 97-105 [facility] [place] Comment on above: Performed By: #### C NARCISO, BMP ####[place] [address] [address] [place], [place] [phone] CO2 [Moles/Vol] 19 mmol/L Low 22-30 [facility] Comment on above: Performed By: #### C NARCISO, BMP ####[place] [address] [place], [place] [phone] Creatinine [Mass/Vol] 0.60 mg/dL Normal 0.58-0.96 [facility] Comment on above: Performed By: #### C NARCISO, BMP ####[facility] [place], [place] [phone] eGFR- Amer. >60 Normal [facility] Comment on above: Performed By: #### C NARCISO, BMP ####[place] [address] [address] [place], [place] [phone] eGFR-All Other Races >60 Normal [facility] [place] Comment on above: Result Comment: eGFR (Estimated [...] GFR. Performed By: #### C NARCISO, BMP ####[facility] [place], [place] [phone] Glucose [Mass/Vol] 87 mg/dL Normal 74-99 [facility] Comment on above: Result Comment: The [place] Diabetes Association (ADA) provides guidance for cutoff [...] Standards of Medical Care in Diabetes 2016, [place] Diabetes Association. Diabetes Care. 2016.39(Suppl 1). Performed By: #### C NARCISO, BMP ####[facility] [place], [place] [phone] Potassium [Moles/Vol] 4.6 mmol/L Normal 3.7-5.1 [facility] Comment on above: Performed By: #### C NARCISO, BMP ####[facility] [place], [place] [phone] Sodium [Moles/Vol] 137 mmol/L Normal 136-144 [facility] Comment on above: Performed By: #### C NARCISO, BMP ####[facility] [place], [place] [phone] Urea nitrogen [Mass/Vol] 8 mg/dL Normal 7-21 [facility] Comment on above: Performed By: #### C BC, BMP ####[place] [address] [address], [place] [phone] CBCon 12-05-2020 Absolute nRBC <0.01 Normal <0.01 [facility] Comment on above: Performed By: #### C BC, BMP ####[place] [address] [address], [place] [phone] Erythrocyte distribution width (RBC) [Ratio] 12.0 % Normal 11.5-15.0 [facility] Comment on above: Performed By: #### C BC, BMP ####[place] [address] [address] [place], [place] [phone] Hematocrit (Bld) [Volume fraction] 39.5 % Normal 36.0-46.0 [facility] Comment on above: Performed By: #### C BC, BMP ####[place] [address] [address] [place], [place] [phone] Hemoglobin (Bld) [Mass/Vol] 13.7 g/dL Normal 11.5-15.5 [facility] Comment on above: Performed By: #### C BC, BMP ####[place] [address] [address] [place], [place] [phone] MCH 31.4 pG Normal 26.0-34.0 [facility] Comment on above: Performed By: #### C BC, BMP ####[place] [address] [address], [place] [phone] MCHC (RBC) [Mass/Vol] 34.7 g/dL Normal 30.5-36.0 [facility] Comment on above: Performed By: #### C BC, BMP ####[place] [address] [address], [place] [phone] MCV (RBC) [Entitic vol] 90.4 fL Normal 80.0-100.0 [facility] Comment on above: Performed By: #### C BC, BMP ####[facility], [place] [phone] Platelet mean volume (Bld) [Entitic vol] 9.8 fL Normal 9.0-12.7 [facility] Comment on above: Performed By: #### C BC, BMP ####[place] [address] [place], [place] [phone] Platelets (Bld) [#/Vol] 181 10*3/uL Normal 150-400 [facility] Comment on above: Performed By: #### C NARCISO, BMP ####[place] [address] [place], [place] [phone] RBC (Bld) [#/Vol] 4.37 10*6/uL Normal 3.90-5.20 [facility] Comment on above: Performed By: #### C NARCISO, BMP ####[place] [address] [place], [place] [phone] WBC (Bld) [#/Vol] 13.42 10*3/uL High 3.70-11.00 [facility] [place] Comment on above: Performed By: #### C NARCISO, BMP ####[facility] [place], [place] [phone] NURSING PROGon 12-05-2020 NURSING PROG HNO ID: [id number] Author: Trina Vasquez RN Service: ? Author [...] precautions. This note was completed by: Trina Vidal [facility] ANES El 12-04-2020 ANES POST HNO ID: [id number] Author: Shady Law MD Service: Anesthesiology Author Type: Anesthesiologist Type: Anesthesia PostOp Filed: 12/04/2020 5:20 PM Note Text: POST ANESTHESIA EVALUATION NOTE SERVICE DATE: 12/04/2020 SERVICE TIME: 5:20 PM : 2000 Vitals: 12/04/20 1245 12/04/20 1654 Temp: 37.1 ?C (98.8 ?F) 36.6 ?C (97.9 ?F) 12/04/20 1245 12/04/20 1654 12/04/20 1700 12/04/20 1715 BP: 124/81 99/60 101/57 106/60 12/04/20 1245 12/04/20 1654 12/04/20 1700 12/04/20 171 Pulse: 90 64 (!) 59 69 12/04/20 [...] 04, 2020 TIME: 5:20 PM PAGER/CONTACT #: [phone] [facility] BRIEF OP NOTon 12-04-2020 BRIEF OP NOT HNO ID: [id number] Author: Linnea Leslie DO Service: Plastic Surgery Author Type: Resident Type: Brief Op Note Filed: 12/04/2020 4:08 PM Note Text: PLASTIC SURGERY - BRIEF OP NOTE Patient Name: Bhavna Kovacs Log ID: [id number] Surgery Date: 12/04/2020 Surgeon(s) and Correspondence Renew Clerk(s): Surgeon(s) and Role: * Tamiko Morin MD [...] Surgery Hand Surgery Resident - PGY-2 Pager: [phone] *After 6PM AND on weekends, please page [phone] (Plastic Surgery Supervisor Publications)* Normal [facility] CONSULTon 12-04-2020 CONSULT HNO ID: [id number] Author: Fara Navas MD Service: Neurology Adult [...] stated that he had an evaluation at [facility] that did not show anything and an EEG at home which did not show anything . He describes episodes of general shaking that can last from 5 to 10 minutes. Further history was limited as the patient was drowsy. Per chart review, he has ED visits at [place] on 09/05, 10/12, 10/15, and 10/25 for [...] old adult who was admitted to the [facility] EMU on 12/05/2019 until 12/11/2019 for [...] 2 H PRN Or - phenol 1 Flushing (CHLORASEPTIC) 1 Flushing MUCOUS MEMBRANE (TOPICAL MOUTH AND THROAT) q [...] appearing, com (more content not included)... Normal [facility] NURSING PROGon 12-04-2020 NURSING PROG HNO ID: [id number] Author: Mohini Cao RN Service: Nursing Author Type: Registered Nurse Type: Nursing Progress Note Filed: 12/04/2020 9:47 PM Note Text: Nursing Progress Note Patient Name: Bhavna Kovacs Patient Location: H020 007/H0 At 1730, pt started shaking his head [...] This note was completed by: Mohini Vidal [facility] OPERATIVE NOon 12-04-2020 OPERATIVE NO HNO ID: [id number] Author: Tamiko Morin MD Service: Plastic Surgery Author Type: Physician Type: Operative Report Filed: 12/12/2020 11:08 AM Note Text: [facility] - Operative Report [address] [address] [place] BHAV[place] KOVACS : 2000 AGE: 20. SEX: F PATIENT TYPE: A HOSP [facility] LOCATION: [id number] ATTENDING PHYSICIAN: Tamiko Morin M.D. CSN NUMBER: [id number] DATE OF SURGERY/PROCEDURE: 12/04/2020 INCISION/PROCEDURE START TIME: 02:34 p.m. INCISION CLOSE/PROCEDURE END TIME: 04:07 p.m. I performed the entire case with Dr. Leslie, Dr. Randhawa, and, Dr. Langley. PREOPERATIVE DIAGNOSIS: Gender dysphoria. POSTOPERATIVE DIAGNOSIS: Gender dysphoria. SURGEON: Tamiko Morin M.D. LAMP SHADE JOINER: 1. Dr. Linnea Leslie. 2. Arian Randhawa. 3. Sita Lanlgey. SURGERY/PROCEDURE: Bilateral subcutaneous mastectomy through a periareolar [...] outcome on the table. Tamiko Morin M.D. RI:[id number] /[id number] Normal [facility] SURGICAL PATHOLOGYon 021 SURGICAL PATHOLOGY Specimen originated from [facility] Specimen #: [id number] Submitting Physician: TAMIKO MORIN M.D. (A60) FINAL [...] areas (5%). No distinct mass is identified. Tax Advisor sections are submitted as follows: A1 slice [...] short stitch nipple, long stitch tail of Gabriel is a 83 g and 13 cm [...] areas (5%). No distinct mass is identified. Tax Advisor sections are submitted as follows: B1 slice [...] documented. LDF 12/05/2020 Gross examination performed at [facility], [address] [place] [address] [place] [address] Date of Report: 12/08/2020 Date of Procedure: 12/04/2020 Date of Receipt: 12/04/2020 Submitted by: TAMIKO MORIN M.D. (A60) Location: G90 Diagnostic interpretation performed at [facility], [address] [place] [address]. CLIA Number: [id number] Normal [facility] Self Check COVIDon SARS-CoV-2 (COVID-19) RNA ISABEL+probe Ql (Unsp spec) UPPER RESPIRATORY TRACT SWAB Normal [facility] Comment on above: Performed By: #### H CCOVD ####[id number] [place], [place] [phone] SARS-CoV-2 (COVID-19) RNA ISABEL+probe Ql (Unsp spec) Negative for COVID19 (SARS CoV2) by RT-PCR or equivalent method. Normal Negative for COVID19 (SARS CoV2) by RT-PCR or equivalent method. [facility] Comment on above: Result Comment: This test was developed and its performance characteristics determined by [facility]'s [facility] [place]. This test has been authorized by FDA under an Emergency Use Authorization (EUA). This test has been validated in accordance with the FDA's Guidance Document Policy for Diagnostics Testing in Laboratories Certified to Perform High Complexity Testing under CLIA prior to Emergency use Authorization for Coronavirus Disease 2019 during the Public Health Emergency issued on August 25, 2019. Test performed by [facility], [facility] [place], [address] [place] [address]. Performed By: #### H CCOVD ####[id number] [place], [place] [phone] CNOVon 11-26-2020 CNOV Office Visit (PLASMN ) ----- BHAVNA KOVACS ([id number]) 2 F Date Time Provider Department 11/26/20 [...] Past Histories independently gathered by the clinical administrative support technician and the remaining scribed note accurately describes [...] Status:Closed by TAMIKO MORIN on 11/27/20 Normal [facility] HISTORY PHYSICALon HISTORY PHYSICAL HNO ID: [id number] Author: Sarah Schmitz APRN.HAND THERAPIST Service: ? Author Type: Nurse Practitioner Type: [...] requiring medication, no history of angina, CHF, [place], cardiac surgery or stents. Denies rest pain, [...] > 1 time per night or hematuria. CAMPUS COORDINATOR: LMP was last month 10/26/2020 But normally [...] PHYSICAL EXAM (more content not included)... Normal [facility] 10-30-2020 AMELIAN Telephone (PLASMN) ----- BHAVNA KOVACS ([id number]) 2 F Date Time Provider Department 10/30/20 [...] Clinic for this. Patient also sees a second hand paper machine and has been wearing a heart monitor for the last month and gets it off this coming weekend. Most recent seizure was this past Tuesday. Patient wants to know if they need a consent form from Neurology in order to proceed with this surgery. Please Advise Rola Chappell PSS Yareli Aguila APRN.HAND THERAPIST 10/30/2020 12:48 PM Addendum 11/04 12:47 - Pt spoke with neurologist and [...] - Fully Assessed Reason for Visit: Question [1327] Prescriptions as of 10/30/2020 Sig: METOPROLOL SUCCINATE [...] Status:Closed by YARELI AGUILA on 10/30/20 Normal [facility] CONSULTATIONon 12-05-[address] [address] CONSULTATION PATIENT NAME: BHAVNA KOVACS : 2000 MED REC NO: [id number] ROOM: 0624 ACCOUNT NO: [id number] ADMIT DATE: 07/17/2017 PROVIDER: Nahun Martini CONSULT [...] is a patient who recently relocated from [place]. The patient has had normal EEGs in the past, was declared as having non-epileptic seizures. The patient is reported to have a neurologist who had counseled her on Lexapro and Xanax. The patient reported to the RN that she identifies as male. The patient was taken to [place] ED, where she tested positive for THC. [...] grandmother. She tested positive for THC at [facility]. REVIEW OF SYSTEMS: No weight gain or [...] not add any antiepileptic medications. NAHUN MARTINI [id number] Doc#: [id number] CC: Normal [facility] Vital Signs Date Time Vital Sign Value Performing Clinician Facility 12-01-2023 20:12-0400 Heart rate 97 /min Aman Tapia MD Work Phone: [facility] 12-01-2023 20:12-0400 Respiratory rate 11 /min Aman Tapia MD Work Phone: [facility] 12-01-2023 20:12-0400 SaO2% (BldA) [Mass fraction] 99 % Aman Tapia MD Work Phone: [facility] 12-01-2023 18:00-0400 Diastolic blood pressure 64 mm[Hg] Aman Tapia MD Work Phone: [facility] 12-01-2023 18:00-0400 Systolic blood pressure 104 mm[Hg] Aman Tapia MD Work Phone: [facility] 12-01-2023 16:22-0400 Body temperature 97.9 [degF] Aman Tapia MD Work Phone: [facility] 12-01-2023 16:19-0400 Body height 157.5 cm Aman Tapia MD Work Phone: [facility] 12-01-2023 16:19-0400 Body mass index (BMI) [Ratio] 17.19 kg/m2 Aman Tapia MD Work Phone: [facility] 12-01-2023 16:19-0400 Body weight 42.64 kg Aman Tapia MD Work Phone: [facility] 09-20-2023 11:27-0400 Body height 154.9 cm Sarah Rice [employer]-HAND THERAPIST Work Phone: [facility] 09-20-2023 11:27-0400 Body mass index (BMI) [Ratio] 19.84 kg/m2 Sarah Ariash-Lucas [employer]-HAND THERAPIST Work Phone: [facility] 09-20-2023 11:27-0400 Body weight 47.63 kg Sarah Briceño-Lucas [employer]-HAND THERAPIST Work Phone: [facility] 09-20-2023 11:27-0400 Diastolic blood pressure 76 mm[Hg] Sarah Briceño-Lucas [employer]-HAND THERAPIST Work Phone: [facility] 09-20-2023 11:27-0400 Heart rate 74 /min Sarah Briceño-Lucas [employer]-HAND THERAPIST Work Phone: [facility] 09-20-2023 11:27-0400 Systolic blood pressure 108 mm[Hg] Sarah Briceño-Lucas [employer]-HAND THERAPIST Work Phone: [facility] 09-19-2023 15:05-0400 Body height 154.9 cm Nette Lackey MD Work Phone: [facility] 09-19-2023 15:05-0400 Body mass index (BMI) [Ratio] 19.88 kg/m2 Nette Lackey MD Work Phone: [facility] 09-19-2023 15:05-0400 Body weight 47.72 kg Nette Lackey MD Work Phone: [facility] 09-19-2023 15:05-0400 Diastolic blood pressure 62 mm[Hg] Nette Lackey MD Work Phone: [facility] 09-19-2023 15:05-0400 Systolic blood pressure 104 mm[Hg] Nette Lackey MD Work Phone: [facility] 09-13-2023 10:06-0400 Body height 154.9 cm Nette Lackey MD Work Phone: [facility] 09-13-2023 10:06-0400 Body mass index (BMI) [Ratio] 20.97 kg/m2 Nette Lackey MD Work Phone: [facility] 09-13-2023 10:06-0400 Body weight 50.35 kg Nette Lackey MD Work Phone: [facility] 09-13-2023 10:06-0400 Diastolic blood pressure 78 mm[Hg] Nette Lackey MD Work Phone: [facility] 09-13-2023 10:06-0400 Systolic blood pressure 110 mm[Hg] Nette Lackey MD Work Phone: [facility] 09-07-2023 13:00-0400 Body height 154.9 cm Enriqueta OSMAN Work Phone: [facility] 09-07-2023 13:00-0400 Body mass index (BMI) [Ratio] 19.84 kg/m2 Enriqueta OSMAN Work Phone: [facility] 09-07-2023 13:00-0400 Body weight 47.63 kg Enriqueta OSMAN Work Phone: [facility] 09-07-2023 13:00-0400 Diastolic blood pressure 81 mm[Hg] Enriqueta OSMAN Work Phone: [facility] 09-07-2023 13:00-0400 Heart rate 73 /min Enriqueta OSMAN Work Phone: [facility] 09-07-2023 13:00-0400 Systolic blood pressure 117 mm[Hg] Enriqueta Tse PA Work Phone: [facility] 08-10-2023 12:52-0500 Body height 154.9 cm Lavonne Garnicai [employer] Work Phone: [facility] 08-10-2023 12:52-0500 Body mass index (BMI) [Ratio] 20.03 kg/m2 Lavonne Garnicai [employer] Work Phone: [facility] 08-10-2023 12:52-0500 Body weight 48.08 kg Lavonne Garnicai [employer] Work Phone: [facility] 08-10-2023 12:52-0500 Diastolic blood pressure 70 mm[Hg] Lavonne Garnicai [employer] Work Phone: [facility] 08-10-2023 12:52-0500 Systolic blood pressure 120 mm[Hg] Lavonne Beltraniani [employer] Work Phone: [facility] 07-07-2023 11:19-0500 Body height 154.9 cm Enriqueta Tse PA Work Phone: [facility] 07-07-2023 11:19-0500 Diastolic blood pressure 59 mm[Hg] Enriqueta Tse PA Work Phone: [facility] 07-07-2023 11:19-0500 Heart rate 65 /min Enriqueta Tse PA Work Phone: [facility] 07-07-2023 11:19-0500 Systolic blood pressure 100 mm[Hg] Enriqueta Tse PA Work Phone: [facility] 05-12-2023 17:00-0500 Diastolic blood pressure 56 mm[Hg] DO [facility] Work Phone: [facility] 05-12-2023 17:00-0500 Heart rate 68 /min DO Eric House Work Phone: [facility] 05-12-2023 17:00-0500 Respiratory rate 16 /min DO Eric House Work Phone: [facility] 05-12-2023 17:00-0500 SaO2% (BldA) [Mass fraction] 98 % DO Eric House Work Phone: [facility] 05-12-2023 17:00-0500 Systolic blood pressure 107 mm[Hg] DO Eric House Work Phone: [facility] 05-12-2023 13:28-0500 Body height 154.94 cm DO Eric House Work Phone: [facility] 05-12-2023 13:28-0500 Body weight 48.1 kg DO Eric House Work Phone: [facility] 05-12-2023 13:27-0500 Body temperature 97.6 [degF] DO Eric House Work Phone: [facility] 04-12-2023 14:17-0400 Diastolic blood pressure 80 mm[Hg] DO Eric House Work Phone: [facility] 04-12-2023 14:17-0400 Heart rate 77 /min DO Eric House Work Phone: [facility] 04-12-2023 14:17-0400 Respiratory rate 16 /min DO Eric House Work Phone: [facility] 04-12-2023 14:17-0400 SaO2% (BldA) [Mass fraction] 99 % DO Eric House Work Phone: [facility] 04-12-2023 14:17-0400 Systolic blood pressure 121 mm[Hg] DO Eric House Work Phone: [facility] 04-12-2023 12:17-0400 Body height 154.94 cm DO Eric House Work Phone: [facility] 04-12-2023 12:17-0400 Body temperature 97.8 [degF] DO Eric House Work Phone: [facility] 04-12-2023 12:17-0400 Body weight 49 kg DO Eric House Work Phone: [facility] 03-23-2023 15:14-0400 Body temperature 98.3 [degF] DO Eric House Work Phone: [facility] 03-23-2023 15:14-0400 Diastolic blood pressure 68 mm[Hg] DO Eric House Work Phone: [facility] 03-23-2023 15:14-0400 Heart rate 66 /min DO Eric House Work Phone: [facility] 03-23-2023 15:14-0400 Respiratory rate 17 /min DO Eric House Work Phone: [facility] 03-23-2023 15:14-0400 SaO2% (BldA) [Mass fraction] 100 % DO Eric House Work Phone: [facility] 03-23-2023 15:14-0400 Systolic blood pressure 115 mm[Hg] DO Eric House Work Phone: [facility] 03-23-2023 12:38-0400 Body height 154.94 cm DO Eric House Work Phone: [facility] 03-23-2023 12:38-0400 Body weight 48.7 kg DO Eric House Work Phone: [facility] 03-11-2023 15:14-0400 Diastolic blood pressure 55 mm[Hg] DO Eric House Work Phone: [facility] 03-11-2023 15:14-0400 Heart rate 80 /min DO Eric House Work Phone: [facility] 03-11-2023 15:14-0400 Respiratory rate 18 /min DO Eric House Work Phone: [facility] 03-11-2023 15:14-0400 SaO2% (BldA) [Mass fraction] 100 % DO Eric House Work Phone: [facility] 03-11-2023 15:14-0400 Systolic blood pressure 95 mm[Hg] DO Eric House Work Phone: [facility] 03-11-2023 12:02-0400 Body height 162.56 cm DO Eric House Work Phone: [facility] 03-11-2023 12:02-0400 Body temperature 98.8 [degF] DO Smore Work Phone: [facility] 03-11-2023 12:02-0400 Body weight 42.18 kg DO Smore Work Phone: [facility] 02-06-2023 18:33-0400 Diastolic blood pressure 69 mm[Hg] Davidson Ortez MD [facility] [employer] 02-06-2023 18:33-0400 Heart rate 88 /min Davidson Ortez MD [facility] [employer] 02-06-2023 18:33-0400 Respiratory rate 26 /min [facility] 02-06-2023 18:33-0400 SaO2% (BldA) [Mass fraction] 99 % Davidson [facility] 02-06-2023 18:33-0400 Systolic blood pressure 111 mm[Hg] Davidson [facility] 02-06-2023 17:04-0400 Body height 154.9 cm Davidson Ortez MD [facility] [employer] 02-06-2023 17:04-0400 Body mass index (BMI) [Ratio] 18.33 kg/m2 Davidson Ortez MD [facility] [employer] 02-06-2023 17:04-0400 Body temperature 98.8 [degF] Davidson [facility] 02-06-2023 17:04-0400 Body weight 44 kg Davidson Ortez MD [facility] [employer] 09-13-2022 12:30-0400 Body temperature 97 [degF] DO Smore Work Phone: [facility] 09-13-2022 12:00-0400 Diastolic blood pressure 76 mm[Hg] DO Eric House Work Phone: [facility] 09-13-2022 12:00-0400 Heart rate 68 /min DO Eric House Work Phone: [facility] 09-13-2022 12:00-0400 Respiratory rate 20 /min DO Eric House Work Phone: [facility] 09-13-2022 12:00-0400 SaO2% (BldA) [Mass fraction] 100 % DO Eric House Work Phone: [facility] 09-13-2022 12:00-0400 Systolic blood pressure 114 mm[Hg] DO Eric House Work Phone: [facility] 09-13-2022 10:41-0400 Body height 154.94 cm DO Eric House Work Phone: [facility] 09-13-2022 10:41-0400 Body weight 46.9 kg DO Eric House Work Phone: [facility] 08-30-2022 12:23-0500 Diastolic blood pressure 72 mm[Hg] DO Eric House Work Phone: [facility] 08-30-2022 12:23-0500 Heart rate 82 /min DO Eric House Work Phone: [facility] 08-30-2022 12:23-0500 Respiratory rate 16 /min DO Eric House Work Phone: [facility] 08-30-2022 12:23-0500 SaO2% (BldA) [Mass fraction] 100 % DO Eric House Work Phone: [facility] 08-30-2022 12:23-0500 Systolic blood pressure 114 mm[Hg] DO Eric House Work Phone: [facility] 08-30-2022 10:51-0500 Body height 154.94 cm DO Eric House Work Phone: [facility] 08-30-2022 10:51-0500 Body weight 50.1 kg DO Eric House Work Phone: [facility] 08-30-2022 10:50-0500 Body temperature 98.5 [degF] DO Eric House Work Phone: [facility] 08-18-2022 13:04-0500 Diastolic blood pressure 62 mm[Hg] DO Eric House Work Phone: [facility] 08-18-2022 13:04-0500 Heart rate 68 /min DO Eric House Work Phone: [facility] 08-18-2022 13:04-0500 Respiratory rate 18 /min DO Eric House Work Phone: [facility] 08-18-2022 13:04-0500 SaO2% (BldA) [Mass fraction] 100 % DO Eric House Work Phone: [facility] 08-18-2022 13:04-0500 Systolic blood pressure 95 mm[Hg] DO Eric House Work Phone: [facility] 08-18-2022 11:09-0500 Body height 154.94 cm DO Eric House Work Phone: [facility] 08-18-2022 11:09-0500 Body temperature 97.8 [degF] DO Eric House Work Phone: [facility] 08-18-2022 11:09-0500 Body weight 46.6 kg DO Eric House Work Phone: [facility] 07-27-2022 13:11-0500 Body temperature 96.9 [degF] DO Los Tupa Work Phone: [facility] 07-27-2022 12:58-0500 Diastolic blood pressure 67 mm[Hg] DO Los T[place]a Work Phone: [facility] 07-27-2022 12:58-0500 Heart rate 52 /min DO Los T[place]a Work Phone: [facility] 07-27-2022 12:58-0500 Respiratory rate 18 /min DO [place] T[place]a Work Phone: [facility] 07-27-2022 12:58-0500 SaO2% (BldA) [Mass fraction] 100 % DO Los T[place]a Work Phone: [facility] 07-27-2022 12:58-0500 Systolic blood pressure 111 mm[Hg] DO Los Tupa Work Phone: [facility] 07-27-2022 12:04-0500 Body height 154.94 cm DO Los Tupa Work Phone: [facility] 07-27-2022 12:04-0500 Body weight 47.2 kg DO Los Tupa Work Phone: [facility] 05-18-2022 12:29-0500 Body temperature 97.8 [degF] DO Tommy Jessi Work Phone: [facility] 05-18-2022 12:29-0500 Diastolic blood pressure 63 mm[Hg] DO Tommy Jessi Work Phone: [facility] 05-18-2022 12:29-0500 Heart rate 63 /min DO Tommy Jessi Work Phone: [facility] 05-18-2022 12:29-0500 Respiratory rate 18 /min DO Tommy Jessi Work Phone: [facility] 05-18-2022 12:29-0500 SaO2% (BldA) [Mass fraction] 100 % DO Tommy Jessi Work Phone: [facility] 05-18-2022 12:29-0500 Systolic blood pressure 103 mm[Hg] DO Tomym Jessi Work Phone: [facility] 05-18-2022 11:02-0500 Body height 175.26 cm DO Tommy Jessi Work Phone: [facility] 05-18-2022 11:02-0500 Body weight 48.08 kg DO Tommy Jessi Work Phone: [facility] 04-22-2022 13:59-0400 Diastolic blood pressure 74 mm[Hg] DO Tommy Jessi Work Phone: [facility] 04-22-2022 13:59-0400 Heart rate 59 /min DO Tommy Jessi Work Phone: [facility] 04-22-2022 13:59-0400 Respiratory rate 16 /min DO Tommy Jessi Work Phone: [facility] 04-22-2022 13:59-0400 SaO2% (BldA) [Mass fraction] 100 % DO Tommy Jessi Work Phone: [facility] 04-22-2022 13:59-0400 Systolic blood pressure 116 mm[Hg] DO Tommy Jessi Work Phone: [facility] 04-22-2022 10:58-0400 Body height 154.94 cm DO Tommy Jessi Work Phone: [facility] 04-22-2022 10:58-0400 Body temperature 97.1 [degF] DO Tommy Jessi Work Phone: [facility] 04-22-2022 10:58-0400 Body weight 49 kg DO Tommy Jessi Work Phone: [facility] 04-05-2022 13:19-0400 Diastolic blood pressure 74 mm[Hg] DO Tommy Jessi Work Phone: [facility] 04-05-2022 13:19-0400 Heart rate 74 /min DO Tommy Jessi Work Phone: [facility] 04-05-2022 13:19-0400 Respiratory rate 16 /min DO Tommy Jessi Work Phone: [facility] 04-05-2022 13:19-0400 SaO2% (BldA) [Mass fraction] 99 % DO Tommy Jessi Work Phone: [facility] 04-05-2022 13:19-0400 Systolic blood pressure 111 mm[Hg] DO Tommy Jessi Work Phone: [facility] 04-05-2022 10:33-0400 Body height 154.94 cm DO Tommy Jessi Work Phone: [facility] 04-05-2022 10:33-0400 Body temperature 97.1 [degF] DO Tommy Jessi Work Phone: [facility] 04-05-2022 10:33-0400 Body weight 51.9 kg DO Tommy Jessi Work Phone: [facility] 03-30-2022 12:51-0400 Diastolic blood pressure 71 mm[Hg] DO Tommy Jessi Work Phone: [facility] 03-30-2022 12:51-0400 Heart rate 81 /min DO Tommy Jessi Work Phone: [facility] 03-30-2022 12:51-0400 Respiratory rate 16 /min DO Tommy Jessi Work Phone: [facility] 03-30-2022 12:51-0400 SaO2% (BldA) [Mass fraction] 98 % DO Tommy Jessi Work Phone: [facility] 03-30-2022 12:51-0400 Systolic blood pressure 113 mm[Hg] DO Tommy Jessi Work Phone: [facility] 03-30-2022 12:07-0400 Body height 154.94 cm DO Tommy Jessi Work Phone: [facility] 03-30-2022 12:07-0400 Body weight 48.08 kg DO Tommy Jessi Work Phone: [facility] 03-30-2022 11:03-0400 Body temperature 97.7 [degF] DO Tommy Jessi Work Phone: [facility] 03-19-2022 12:02-0400 Diastolic blood pressure 66 mm[Hg] DO Tommy Jessi Work Phone: [facility] 03-19-2022 12:02-0400 Heart rate 61 /min DO Tommy Jessi Work Phone: [facility] 03-19-2022 12:02-0400 Respiratory rate 18 /min DO Tommy Jessi Work Phone: [facility] 03-19-2022 12:02-0400 SaO2% (BldA) [Mass fraction] 100 % DO Tommy Jessi Work Phone: [facility] 03-19-2022 12:02-0400 Systolic blood pressure 125 mm[Hg] DO Tommy Jessi Work Phone: [facility] 03-19-2022 11:03-0400 Body height 154.94 cm DO Tommy Jessi Work Phone: [facility] 03-19-2022 11:03-0400 Body temperature 97.3 [degF] DO Tommy Jessi Work Phone: [facility] 03-19-2022 11:03-0400 Body weight 53.5 kg DO Tommy Jessi Work Phone: [facility] 02-25-2022 12:00-0400 Diastolic blood pressure 63 mm[Hg] DO Tommy Jessi Work Phone: [facility] 02-25-2022 12:00-0400 Heart rate 71 /min DO Tommy Jessi Work Phone: [facility] 02-25-2022 12:00-0400 Respiratory rate 14 /min DO Tommy Jessi Work Phone: [facility] 02-25-2022 12:00-0400 SaO2% (BldA) [Mass fraction] 99 % DO Tommy Jessi Work Phone: [facility] 02-25-2022 12:00-0400 Systolic blood pressure 112 mm[Hg] DO Tommy Jessi Work Phone: [facility] 02-25-2022 11:07-0400 Body height 162.56 cm DO Tommy Jessi Work Phone: [facility] 02-25-2022 11:07-0400 Body temperature 98.4 [degF] DO Tommy Jessi Work Phone: [facility] 02-25-2022 11:07-0400 Body weight 50.2 kg DO Tommy Jessi Work Phone: [facility] 09-28-2021 13:35-0400 Diastolic blood pressure 73 mm[Hg] DO Eric House Work Phone: [facility] 09-28-2021 13:35-0400 Heart rate 71 /min DO Eric House Work Phone: [facility] 09-28-2021 13:35-0400 Respiratory rate 18 /min DO Eric House Work Phone: [facility] 09-28-2021 13:35-0400 SaO2% (BldA) [Mass fraction] 100 % DO Eric House Work Phone: [facility] 09-28-2021 13:35-0400 Systolic blood pressure 113 mm[Hg] DO Eric House Work Phone: [facility] 09-28-2021 11:40-0400 Body height 154.94 cm DO Eric House Work Phone: [facility] 09-28-2021 11:40-0400 Body mass index (BMI) [Ratio] 19.5 kg/m2 DO Eric House Work Phone: [facility] 09-28-2021 11:40-0400 Body temperature 98 [degF] DO Eric House Work Phone: [facility] 09-28-2021 11:40-0400 Body weight 47 kg DO Eric House Work Phone: [facility] 09-09-2021 13:05-0400 Diastolic blood pressure 65 mm[Hg] DO Eric House Work Phone: [facility] 09-09-2021 13:05-0400 Heart rate 81 /min DO Eric House Work Phone: [facility] 09-09-2021 13:05-0400 Respiratory rate 20 /min DO Eric [employer] Work Phone: [facility] 09-09-2021 13:05-0400 SaO2% (BldA) [Mass fraction] 100 % DO Eric House Work Phone: [facility] 09-09-2021 13:05-0400 Systolic blood pressure 107 mm[Hg] DO Eric House Work Phone: [facility] 09-09-2021 11:12-0400 Body height 154.94 cm DO Eric House Work Phone: [facility] 09-09-2021 11:12-0400 Body mass index (BMI) [Ratio] 19.5 kg/m2 DO Eric House Work Phone: [facility] 09-09-2021 11:12-0400 Body weight 47 kg DO Eric House Work Phone: [facility] 09-09-2021 11:05-0400 Body temperature 97.8 [degF] DO Eric House Work Phone: [facility] 08-12-2021 14:30-0500 Diastolic blood pressure 60 mm[Hg] DO Eric House Work Phone: [facility] 08-12-2021 14:30-0500 Heart rate 68 /min DO Eric House Work Phone: [facility] 08-12-2021 14:30-0500 Respiratory rate 21 /min DO Eric House Work Phone: [facility] 08-12-2021 14:30-0500 SaO2% (BldA) [Mass fraction] 99 % DO Eric House Work Phone: [facility] 08-12-2021 14:30-0500 Systolic blood pressure 102 mm[Hg] DO Eric House Work Phone: [facility] 08-12-2021 10:45-0500 Body height 154.94 cm DO Eric House Work Phone: [facility] 08-12-2021 10:45-0500 Body mass index (BMI) [Ratio] 43.7 kg/m2 DO Eric House Work Phone: [facility] 08-12-2021 10:45-0500 Body weight 105.1 kg DO Eric House Work Phone: [facility] 08-12-2021 10:35-0500 Body temperature 97.5 [degF] DO Eric House Work Phone: [facility] 08-07-2021 12:50-0500 Diastolic blood pressure 74 mm[Hg] DO Eric House Work Phone: [facility] 08-07-2021 12:50-0500 Heart rate 91 /min DO Eric House Work Phone: [facility] 08-07-2021 12:50-0500 Respiratory rate 16 /min DO Eric House Work Phone: [facility] 08-07-2021 12:50-0500 SaO2% (BldA) [Mass fraction] 100 % DO Eric House Work Phone: [facility] 02-11-2022 12:50-0500 Systolic blood pressure 107 mm[Hg] DO Eric House Work Phone: [facility] 07-10-2021 12:55-0500 Diastolic blood pressure 72 mm[Hg] DO Eric French Work Phone: [facility] 07-10-2021 12:55-0500 Heart rate 58 /min DO Eric French Work Phone: [facility] 07-10-2021 12:55-0500 Respiratory rate 18 /min DO Eric French Work Phone: [facility] 07-10-2021 12:55-0500 SaO2% (BldA) [Mass fraction] 100 % DO Eric French Work Phone: [facility] 07-10-2021 12:55-0500 Systolic blood pressure 110 mm[Hg] DO Eric French Work Phone: [facility] 07-10-2021 10:57-0500 Body height 154.94 cm DO Eric French Work Phone: [facility] 07-10-2021 10:57-0500 Body mass index (BMI) [Ratio] 20.5 kg/m2 DO Eric French Work Phone: [facility] 07-10-2021 10:57-0500 Body temperature 97.5 [degF] DO Eric French Work Phone: [facility] 07-10-2021 10:57-0500 Body weight 49.4 kg DO Eric French Work Phone: [facility] Encounters Encounter Date Encounter Type Care Provider Facility Start: 01-26-2024 ambulatory [place] Start: 01-23-2024 End: 01-23-2024 ambulatory SARAH RICE [facility] Start: 01-06-2024 End: 01-06-2024 Emergency department patient visit [facility] Start: 01-05-2024 End: 01-05-2024 ambulatory ERIC FRENCH Facility:[facility] Start: 01-03-2024 End: 01-03-2024 ambulatory [facility] Start: 12-28-2023 End: 12[facility]28[facility]20[facility] Start: 12-21-2023 ambulatory [facility] Start: 12-15-2023 End: 12-15-2023 ambulatory ERIC FRENCH Facility:[facility] Start: 12-09-2023 End: 12-09-2023 ambulatory ERIC FRENCH [facility] Start: 12-09-2023 End: 12-09-2023 Subsequent hospital visit by physician Eric French Sr., DO Work Phone: [facility] Start: 12-08-2023 ambulatory [facility] Start: 12-06-2023 End: 12-06-2023 ambulatory [facility] EMILIA REMY [facility] Start: 12-02-2023 End: 12-02-[facility]23 [facility] Start: 12-01-2023 End: 12-01-2023 Emergency department patient visit Aman Tapia MD Work Phone: [facility] Comment on above: Seizure-like activit y (HCC) (Primary Dx) Start: 12-01-2023 End: 12-01-2023 ambulatory JUDE Darya FIDEL [facility] Start: 12-01-2023 End: 12-01-2023 ambulatory [facility] EMILIA REMY [facility] Start: 11-29-2023 ambulatory [place] Start: 11-25-2023 ambulatory ERIC FRENCH [facility] Start: 11-24-2023 End: 11-30-2023 Evaluation and management of inpatient BEATA JIMENES [facility] Start: 11-16-2023 End: 11-16-2023 ambulatory [facility] Start: 11-15-2023 End: 11-15-2023 ambulatory [facility] Start: 10-24-2023 End: 10-24-2023 ambulatory ERIC FRENCH Facility:[facility] Start: 10-17-2023 End: 10-18-2023 ambulatory [facility] Start: 10-17-2023 End: 10-17-2023 Evaluation and management of inpatient [facility] Start: 10-12-2023 ambulatory ERIC Boland [place] Facilit y:[facility] Start: 10-10-2023 Encounter for other preprocedural examination [facility] Start: 10-10-2023 End: 10-12-[address] [facility] Start: 09-27-2023 End: 09-27-2023 Orders Only Nette Lackey MD Work Phone: [facility] Start: 09-23-2023 End: 09-23-2023 ambulatory [facility] Start: 09-20-2023 End: 09-20-2023 ambulatory [facility] Start: 09-20-2023 End: 09-20-2023 Office outpatient new 30 minutes [facility] [employer] Comment on above: Muscle spasm (Primar y Dx); Chronic bilateral low back pain with bilateral sciatica; Chronic bilateral low back pain, unspecified whether sciatica present Start: 09-19-2023 End: 09-19-2023 Patient encounter procedure Nette Lackey MD Work Phone: [facility] Comment on above: Encounter for initia l prescription of implantable subdermal contraceptive (Primary Dx) Start: 09-19-2023 End: 09-19-2023 ambulatory [facility] Start: 09-15-2023 Telephone encounter Enriqueta OSMAN Work Phone: [facility] Start: 09-13-2023 End: 09-13-2023 Office outpatient new 45 minutes Nette Lackey MD Work Phone: [facility] Comment on above: Irregular menstrual cycle (Primary Dx); Cyst of left ovary Start: 09-13-2023 End: 09-13-2023 ambulatory NETTE LACKEY [facility] Start: 09-12-2023 End: 09-12-2023 ambulatory ENRIQUETA TSE [facility] Start: 09-08-2023 ambulatory ERIC FRENCH [facility] Start: 09-07-2023 End: 09-07-2023 Orders Only Swapna Elmorebong [facility] Comment on above: Low back pain, unspe cified back pain laterality, unspecified chronicity, unspecified whether sciatica present (Primary Dx) Neck pain (Primary D x) Start: 09-07-2023 End: 09-07-2023 Office outpatient visit 25 minutes Enriqueta OSMAN Work Phone: [facility] Comment on above: Right kidney stone ( Primary Dx); Chronic bilateral low back pain with bilateral sciatica; Cyst of left ovary; Gross hematuria Start: 08-26-2023 End: 08-26-2023 Evaluation and management of inpatient ROSALINE HARRIS [facility] Start: 08-26-2023 End: 08-26-2023 ambulatory GADIEL MCDONALDKHATIB [facility] Start: 08-26-2023 End: 08-26-2023 Evaluation and management of inpatient [facility] Start: 08-26-2023 End: 08-26-2023 Evaluation and management of inpatient [facility] Start: 08-26-2023 End: 08-26-2023 Evaluation and management of inpatient ÁNGEL POPE [facility] Start: 08-25-2023 End: 08-26-2023 ambulatory GADIEL CHIRINOS [facility] Start: 08-25-2023 End: 08-26-2023 Emergency department patient visit JAVIER HURST [facility] Start: 08-25-2023 End: 08-25-2023 ambulatory ERIC [facility] Start: 08-24-2023 Evaluation and management of inpatient DEO GARNETT [facility] Start: 08-16-2023 Telephone encounter Enriqueta OSMAN Work Phone: [facility] Start: 08-10-2023 End: 08-10-2023 Office outpatient visit 25 minutes Lavonne Davies [employer] Work Phone: [facility] Comment on above: Intractable complex partial epilepsy (CMS/HCC) (Primary Dx); Cervical radiculopathy; Insomnia due to medical condition; Migraine without aura and without status migrainosus, not intractable (CMS/HCC); Memory loss; Neck pain; Cervical paraspinal muscle spasm Start: 08-03-2023 End: 08-03-20[facility] Start: 08-02-2023 Telephone encounter Enriqueta OSMAN Work Phone: [facility] Start: 07-28-2023 End: 07-28-2023 Emergency department patient visit ERIC Boland [facility] Start: 07-26-2023 End: 07-26-2023 ambulatory ENRIQUETA TSE [facility] Start: 07-22-2023 End: 07-22-2023 ambulatory ENRIQUETA TSE [facility] Start: 07-07-2023 End: 07-07-2023 ambulatory ERIC [facility] Start: 07-07-2023 End: 07-07-2023 Office outpatient visit 25 minutes Enriqueta OSMAN Work Phone: [facility] Comment on above: Right kidney stone ( Primary Dx) Start: 06-17-2023 End: 06-17-2023 ambulatory LUIS FERNANDO [facility] Start: 05-12-2023 End: 05-12-2023 Emergency department patient visit DO Eric French Work Phone: [facility] Work Phone: Start: 04-12-2023 End: 04-12-2023 Emergency department patient visit DO Eric French Work Phone: [facility] Work Phone: Start: 03-25-2023 End: 03-25-2023 ambulatory [facility] Start: 03-23-2023 End: 03-23-2023 Emergency department patient visit DO Eric French Work Phone: [facility] Work Phone: Start: 03-11-2023 End: 03-11-2023 Emergency department patient visit DO Eric French Work Phone: [facility] Work Phone: Start: 02-06-2023 End: 02-06-2023 Emergency department patient visit ERIC Krystian FRENCH [facility] Start: 02-06-2023 End: 02-06-2023 Emergency department patient visit Davidson Ortez MD [facility] Comment on above: Seizure (HCC) Start: 02-01-2023 End: 02-01-2023 ambulatory [facility] Start: 09-23-2022 End: 09-24-2022 ambulatory ERIC FRENCH Facility: Start: 09-13-2022 End: 09-13-2022 Emergency department patient visit DO Eric French Work Phone: [facility] Work Phone: Start: 08-30-2022 End: 08-30-2022 Emergency department patient visit DO Eric French Work Phone: [facility] Work Phone: Start: 08-18-2022 End: 08-18-2022 Emergency department patient visit DO Eric French Work Phone: [facility] Work Phone: Start: 07-27-2022 End: 07-27-2022 Emergency department patient visit DO Los Mcnally Work Phone: [facility] Work Phone: Start: 06-12-2022 End: 06-13-[address] ERIC FRENCH Facility:[facility] Start: 05-24-2022 End: 05-24-[address] ERIC FRENCH Facility:[facility] Start: 05-18-2022 End: 05-18-2022 Emergency department patient visit DO Tommy Jessi Work Phone: [facility] Start: 05-15-2022 End: 05-15-[address] ERIC FRENCH Facility:[facility] Start: 04-22-2022 End: 04-22-2022 Emergency department patient visit DO Tommy Jessi Work Phone: [facility] Start: 04-05-2022 End: 04-05-2022 Emergency department patient visit DO Tommy Jessi Work Phone: [facility] Start: 03-30-2022 End: 03-30-2022 Emergency department patient visit DO Tommy Jessi Work Phone: [facility] Start: 03-19-2022 End: 03-19-2022 Emergency department patient visit DO Tommy Jessi Work Phone: [facility] Start: 02-25-2022 End: 02-25-2022 Emergency department patient visit DO Tommy Jessi Work Phone: [facility] Start: 01-03-2022 End: 01-03-[address] ERIC FRENCH Facility:[facility]1 Start: 11-29-2021 End: 11-29-[address] ERIC FRENCH Facility:[facility] Start: 10-16-2021 End: 10-16-[address] ERIC FRENCH Facility:[facility] Start: 09-28-2021 End: 09-28-2021 Emergency department patient visit DO Eric French Work Phone: [facility] Start: 09-09-2021 End: 09-09-2021 Emergency department patient visit DO Eric House Work Phone: [facility] Start: 08-20-2021 ambulatory [facility] Provider Leila mendez Comment on above: Invitation for resea [facility] study with Dr. Wheat Start: 08-20-2021 E-mail encounter fro m caregiver [facility] Provider [facility] Start: 08-18-2021 ambulatory DION F WHITE Facility:[facility] Start: 08-12-2021 End: 08-12-2021 Emergency department patient visit DO Eric House Work Phone: [facility] Start: 08-07-2021 End: 08-07-2021 Emergency department patient visit DO Eric French Work Phone: [facility] Start: 07-10-2021 End: 07-10-2021 Emergency department patient visit DO Eric House Work Phone: [facility] Start: 03-23-2021 End: 03-23-2021 Emergency department patient visit SR ERIC Boland [facility] Start: 07-20-2017 End: 07-20-2017 Emergency department patient visit ALEXA SAHA Facility:[facility] Procedures Date Procedure Procedure Detail Performing Clinician Start: 12-09-2023 Basic metabolic panel calcium total Radha Remy MD Start: 12-01-2023 Ct cervical spine w/o contrast material Aman Tapia MD Work Phone: Start: 12-01-2023 Ct head/brain w/o contrast material Aman Tapia MD Work Phone: Start: 12-01-2023 Basic metabolic panel calcium total Aman Tapia MD Work Phone: Start: 09-19-2023 Urine test visual color cmprsn abdifatah Lackey MD Work Phone: Start: 09-13-2023 Urine test visual color cmplilliamn abdifatah Lackey MD Work Phone: Start: 09-13-2023 Follow-up visit Follow-up NETTE LACKEY Start: 09-07-2023 Urnls dip stick/tablet rgnt auto w/o microscopy Enriqueta OSMAN Work Phone: Start: 08-26-2023 Adult depression screening assessment Enriqueta OSMAN Work Phone: Start: 05-12-2023 CT of abdomen and pelvis without contrast DO Smore Work Phone: Start: 02-06-2023 Ct head/brain w/o contrast material Davidson Ortez MD Start: 02-06-2023 End: 02-06-2023 Comprehensive metabolic panel Davidson Soto Start: 08-30-2022 Urine culture DO Smore Work Phone: Start: 09-28-2021 Plain chest X-ray DO Smore Work Phone: Start: 09-09-2021 Urine culture DO Smore Work Phone: Start: 08-12-2021 Urine culture DO Smore Work Phone: Start: 08-07-2021 Urine culture DO Smore Work Phone: Start: 07-10-2021 Urine culture DO Smore Work Phone: Start: 07-10-2021 CT of abdomen and pelvis without contrast DO Smore Work Phone: Start: 12-05-2017 Electroencephalogram Urine culture DO Tommy Jessi Work Phone: Urine culture DO Tommy Jessi Work Phone: Plan of Treatment Date Care Activity Detail Author Start: 09-22-2024 Tobacco Screening Tobacco Screening [facility] Start: 09-19-2024 Adult BMI Screening Adult BMI Screen ing [facility] Start: 09-19-2024 Tobacco Screening Tobacco Screening [facility] Start: 09-18-2024 Adult BMI Screening Adult BMI Screen ing [facility] Start: 09-18-2024 Tobacco Screening Tobacco Screening [facility] Start: 09-12-2024 Adult BMI Screening Adult BMI Screen ing [facility] Start: 09-12-2024 Tobacco Screening Tobacco Screening [facility] Start: 09-06-2024 Adult BMI Screening Adult BMI Screen ing [facility] Start: 09-06-2024 Subsequent hospital visit by physician 09/06/2024 11:04 AM EDT Hospital Encounter [facility] [address] [facility] [address] [place] [address] Right kidney stone [facility] Comment on above: Right kidney stone Start: 08-25-2024 Depression Screening Depression Scre ening [facility] Start: 08-25-2024 Tobacco Screening Tobacco Screening [facility] Start: 07-28-2024 Adult BMI Screening Adult BMI Screen ing [facility] Start: 07-28-2024 Tobacco Screening Tobacco Screening [facility] Start: 07-07-2024 Tobacco Screening Tobacco Screening [facility] Start: 02-26-2024 Influenza vaccination Influenza Vacc ine [facility] Start: 01-26-2024 Influenza vaccination Flu vacc ine (Season Ended) [facility] Start: 01-21-2024 Adult BMI Screening Adult BMI Screen ing [facility] Start: 11-15-2023 End: 11-15-2023 Patient encounter procedure 11/15/2023 12:30 PM EDT [facility] [address] [facility] [address] [place] [phone] Sarah Rice, ROSA-HAND THERAPIST [address] [facility] [address] [place] [address] [facility] Start: 11-15-2023 End: 11-15-2023 Patient encounter procedure 11/15/2023 11:15 AM EDT Office Visit [facility] [address] [place] [phone] Debbie Mckeon MD [address] [place] [address] [facility] Start: 10-04-2023 End: 10-04-2023 Patient encounter procedure 10/04/2023 10:30 AM EDT Office Visit [facility] [address] [place] [phone] Nette Lackey MD [address] [place] [address] [facility] Start: 09-23-2023 Subsequent hospital visit by physician 09/23/2023 1:00 PM EDT Hospital Encounter [facility] [address] [place] [address] Nette Lackey MD [address] [place] [address] [facility] Start: 09-22-2023 End: 09-22-2023 Patient encounter procedure 09/22/2023 11:00 AM EDT Office Visit [facility] [address] [facility] [address] [place] [address] Lavonne Davies, CAMP COOK [address] [facility] [address] Ribeiro [address] [place] [address] [facility] Start: 09-20-2023 End: 09-20-2023 Patient encounter procedure [facility] Start: 09-19-2023 End: 09-19-2023 Patient encounter procedure 09/19/2023 3:15 PM EDT Procedure visit [facility] [address] [place] [phone] Nette Lackey MD [address] [place] [address] [facility] Start: 09-13-2023 End: [...] whether sciatica present Expected: 09/07/2023, Expires: 09/06/2024 [employer] Work Phone: Comment on above: Expected: 09/07/2023 , Expires: 09/06/2024 Start: 09-07-2023 End: 09-07-2023 Patient encounter procedure 09/07/2023 11:30 AM EDT Office Visit [facility] [address] [place] [address] [place] [address] Enriqueta Tse I, PA [address] [place] [address] [facility] Start: 08-10-2023 End: 08-10-2023 Patient encounter procedure 08/10/2023 10:15 AM EST Office Visit [facility] [address] [place] [address] [address] [facility] [place] [phone] Enriqueta Tse I PA [address] [place] [address] [facility] Start: 07-07-2023 End: 07-06-2024 US Retroperitoneum Ultrasound retroperitoneal complete Imaging Routine Right kidney stone Expected: 07/07/2023, Expires: 07/06/[facility] Comment on above: Expected: 07/07/2023 , Expires: 07/06/2024 Start: 07-07-2023 End: 07-06-2024 XR Abdomen AP [facility] Work Phone: Comment on above: Expected: 07/07/2023 , Expires: 07/06/2024 Start: 03-23-2023 Lamotrigine measurement [facility] Start: 03-23-2023 Measurement of substance [facility] Start: 02-25-2023 Influenza vaccination Influenza Vacc ine [employer] [facility] Start: 01-25-2023 Influenza vaccination Flu vaccine (# 1) [facility] Start: 09-13-2022 Lamotrigine measurement [facility] Start: 09-13-2022 Measurement of substance [facility] Start: 08-18-2022 Measurement of substance [facility] Start: 2022 Screening for malign ant neoplasm of cervix Pap smear [facility] [employer] Start: 02-25-2022 Influenza vaccination INFLUENZA (#1) [facility] Start: 06-27-2021 DEPRESSION ASSESSMENT DEPRESSION ASS ESSMENT [facility] Start: 2020 DTaP,Tdap and Td Vac cines (1 - Tdap) DTaP,Tdap and Td Vaccines (1 - Tdap) [employer] [facility] Start: 2020 DTaP/Tdap/Td vaccine (1 - Tdap) DTaP/Tdap/Td vaccine (1 - Tdap) [facility] [employer] Start: 2020 Urine microalbumin profile DTAP,TDAP,TD (1 - Tdap) [facility] Start: 2019 CHLAMYDIA SCREENING (18-24) CHLAMYDIA SCREENING (18-24) [facility] Start: 2019 GC (GONORRHEA) SCREE DAVION (18-24) GC (GONORRHEA) SCREENING (18-24) [facility] Start: 2019 HEPATITIS C SCREENING HEPATITIS C SC REENING [facility] Start: 2019 Hepatitis C screening Hepatitis C sc reen [facility] [employer] Start: 2019 HIV SCREENING HIV SCREENING [facility] Start: 2017 Screening for Chlamy stevie trachomatis Chlamydia/GC screen [facility] [employer] Start: 2016 HIV screening HIV screen [facility] Start: 2015 PEDS TO ADULT TRANSI TION ANNUAL ASSESSMENT PEDS TO ADULT TRANSITION ANNUAL ASSESSMENT [facility] Start: 2013 Depression Screen Depression Screen [facility] Start: 2013 Depression Screening Depression Scre [facility] Start: 2013 PEDS TO ADULT TRANSI TION INITIAL DISCUSSION PEDS TO ADULT TRANSITION INITIAL DISCUSSION [facility] Start: 2012 HPV VACCINE (1 - 2-d ose series) HPV VACCINE (1 - 2-dose series) [facility] Start: 2011 MENINGOCOCCAL B: Con civil technician based on risk (1 of 2 - Risk Bexsero 2-dose series) MENINGOCOCCAL B: Consider based on risk (1 of 2 - Risk Bexsero 2-dose series) [facility] Start: 2002 Varicella vaccine (1 of 2 - 2-dose childhood series) Varicella vaccine (1 of 2 - 2-dose childhood series) [facility] Start: 2001 COVID-19 VACCINE (#1) COVID-19 VACCI NE (#1) [facility] Start: 2001 HEPATITIS B (1 of 3 - 3-dose series) HEPATITIS B (1 of 3 - 3-dose series) [facility] Start: 2001 Hepatitis B vaccine (1 of 3 - 3-dose series) Hepatitis B vaccine (1 of 3 - 3-dose series) [facility] Start: 2001 Screening for Chlamy stevie trachomatis Chlamydia Screening [facility] Bacteria identified in Urine by Culture [facility] End: 09-06-2024 Cytology Cytology Pathology and Cytology Routine Gross hematuria 1 Occurrences starting 09/07/2023 until 09/06/2024 [facility] Comment on above: 1 Occurrences starti ng 09/07/2023 until 09/06/2024 Patient Education [facility] Work Phone: Patient referral [facility] Work Phone: End: 07-07-2024 Urinalysis Urinalysis Lab Routine Right kidney stone PRN for 1 Occurrences starting 07/07/2023 until 07/07/2024 [facility] Comment on above: PRN for 1 Occurrence s starting 07/07/2023 until 07/07/2024 End: 12-01-2023 Urinalysis Urinalysis Lab STAT One Time for 1 Occurrences starting 12/01/2023 until 12/01/2023 [facility] Comment on above: One Time for 1 Occur rences starting 12/01/2023 until 12/01/2023 End: 09-06-2024 Urovysion for bladder Urovysion for bladder Lab Routine Gross hematuria 1 Occurrences starting 09/07/2023 until 09/06/2024 [employer] Work Phone: Comment on above: 1 Occurrences starti ng 09/07/2023 until 09/06/2024 Immunizations Immunization Date Immunization Notes Care Provider Fa [facility] 11-24-2022 pneumococcal polysaccharide vaccine, 23 valent Enriqueta OSMAN Work Phone: [employer] NEGATED: Highlighted row has not occurred!07-17-2017 influenza, injectable, quadrivalent, preservative free Davidson Ortez MD [facility] Payers Date Payer Category Payer Self-pay [id number] 2016 Medicaid [id number] 2003 Medicaid [id number] 2001 Unknown [id number] 2.16.8 40.1.978745.3.579.2.176 2001 Unknown [id number] 2.16. 840.1.251591.3.579.2.594 2001 Unknown [id number] 2.16.84 0.1.614815.3.579.2.593 2001 Unknown [id number] 2.16.84 0.1.673087.3.579.2.593 2001 Unknown [id number] 2.16.84 0.1.876509.3.579.2.593 2001 Unknown [id number] 2.16.84 0.1.579989.3.579.2.593 2001 Unknown [id number] 2.16.84 0.1.816214.3.579.2.593 2001 Unknown [id number] 2.16.84 0.1.201092.3.579.2.593 2001 Unknown [id number] 2.16.84 0.1.879727.3.579.2.593 2001 Unknown [id number] 2.16.8 40.1.190912.3.579.2.173 2001 Unknown [id number] 2.16.8 40.1.289942.3.579.2.1286 2001 Unknown [id number] 2.16.8 40.1.893311.3.579.2.1286 2001 Unknown [id number] 2.16.8 40.1.895390.3.579.2.1286 2001 Unknown [id number] 2.16.8 40.1.603032.3.579.2.1286 2001 Unknown [id number] 2.16.8 40.1.300924.3.579.2.1286 2001 Unknown [id number] 2.16.8 40.1.301626.3.579.2.1286 2001 Unknown [id number] 2.16.8 40.1.461964.3.579.2.1286 2001 Unknown [id number] 2.16.8 40.1.176291.3.579.2.1286 2001 Unknown [id number] 2.16.8 40.1.942314.3.579.2.1286 2001 Unknown [id number] 2.16.8 40.1.896553.3.579.2.1286 2001 Unknown [id number] 2.16.8 40.1.060441.3.579.2.1286 2001 Unknown [id number] 2.16.8 40.1.655377.3.579.2.1286 2001 Unknown [id number] 2.16.8 40.1.088101.3.579.2.1286 2001 Unknown [id number] 2.16.84 0.1.910968.3.579.2.1286 2001 Unknown [id number] 2.16.84 0.1.561098.3.579.2.1286 2001 Unknown [id number] 2.16.8 40.1.726755.3.579.2.177 2001 Unknown [id number] 2.16.8 40.1.285438.3.579.2.177 2001 Unknown [id number] 2.16.8 40.1.670856.3.579.2.177 2001 Unknown [id number] 2.16.8 40.1.539603.3.579.2.177 2001 Unknown [id number] 2.16.8 40.1.812450.3.579.2.177 2001 Unknown [id number] 2.16.8 40.1.161042.3.579.2.6 2001 Unknown [id number] 2.16.8 40.1.038820.3.579.2.6 2001 Unknown [id number] 2.16.8 40.1.595569.3.579.2.1285 2001 Unknown [id number] 2.16.8 40.1.922619.3.579.2.1285 2001 Unknown [id number] 2.16.8 40.1.992150.3.579.2.1285 2001 Unknown [id number] 2.16.8 40.1.433516.3.579.2.1285 2001 Unknown [id number] 2.16.8 40.1.983695.3.579.2.1285 2001 Unknown [id number] 2.16.8 40.1.597256.3.579.2.1286 2001 Unknown [id number] 2.16.8 40.1.114547.3.579.2.1286 2001 Unknown [id number] 2.16.8 40.1.550118.3.579.2.718 2001 Unknown [id number] 2.16.8 40.1.211947.3.579.2.718 2001 Unknown [id number] 2.16.8 40.1.504311.3.579.2.8 2001 Unknown [id number] 2.16.8 40.1.320996.3.579.2.8 2001 Unknown [id number] 2.16.8 40.1.440671.3.579.2.8 2001 Unknown [id number] 2.16.8 40.1.492678.3.579.2.1285 2001 Unknown [id number] 2.16.8 40.1.197851.3.579.2.1285 2001 Unknown [id number] 2.16.8 40.1.126767.3.579.2.1285 2001 Unknown [id number] 2.16.8 40.1.819866.3.579.2.1285 2001 Unknown [id number] 2.16.8 40.1.868839.3.579.2.1285 2001 Unknown [id number] 2.16.8 40.1.309522.3.579.2.1285 2001 Unknown [id number] 2.16.8 40.1.138836.3.579.2.1285 2001 Unknown [id number] 2.16.8 40.1.857360.3.579.2.1285 2001 Unknown [id number] 2.16.8 40.1.096479.3.579.2.1285 2001 Unknown [id number] 2.16.8 40.1.250891.3.579.2.1286 2001 Unknown [id number] 2.16.8 40.1.764626.3.579.2.1286 2001 Unknown [id number] 2.16.8 40.1.573163.3.579.2.1286 2001 Unknown [id number] 2.16.8 40.1.673682.3.579.2.1286 1977 Unknown [id number] 2.16.8 40.1.728111.3.579.2.647 1959 Unknown [id number] Unknown [id number] 2.16.8 40.1.047287.3.579.2.531 Unknown [id number] 2.16.8 40.1.798255.3.579.2.531 Unknown [id number] 2.16.8 40.1.753906.3.579.2.531 Unknown [id number] 2.16.8 40.1.838797.3.579.2.531 Social History Date Type Detail Facility Start: 09-28-2021 Tobacco smoking stat us GAIS Current some day smoker [facility] Start: 2001 Sex Assigned At Female F [facility] Start: 07-17-2017 End: 02-25-2022 Tobacco smoking status NHIS Never smoked tobacco (finding) [facility] Start: 07-17-2017 End: 03-29-2019 Tobacco use and exposure Smokeless tobacco non-user [facility] Start: 12-10-2020 End: 09-13-2023 Alcohol intake Ex-drinker (finding) [facility] Start: 03-23-2021 Alcohol intake Current non-dr corrugated sheet material sheeter of alcohol (finding) [facility] Start: 2001 Sex Assigned At Not on file B [facility] Start: 07-07-2023 End: 12-01-2023 History of Social function [facility] Start: 07-07-2023 End: 12-01-2023 Tobacco use panel [facility] Housing Instability Unknown [facility] Start: 10-12-2020 Gender identity Identifies as [facility] (finding[facility] Start: 08-10-2023 Alcohol intake Lifetime non-d elena (finding) [facility] Has the electric, [employer], oil, or water company threatened to shut off services in your home in past 12Mo No [facility] How often to you hav e a drink containing alcohol? Never [employer] Medical Equipment Procedure Code Equipment Code Equipment Original Text Equipment Identifier Dates [id number] Start: 07-03-2020 Comment on above: For use to withdraw testosterone Q2wks For use with testost erone administration SQ Q2wks Goals Date Patient Goal Desired Activity /State Personal health goal Comment on above: Formatting of this n ote might be different from the original. Evaluation of progress towards goal: home with family, self care Clinical Notes 12-05-2019 to 01-03-2024 Discharge InstructionsAttaMILAGROS Lance - 09/20/2023 11:00 AM EDTPatient InstructionsAttachUriel Lackey MD - 09/19/2023 3:15 PM EDTPatient Instructions Note Date & Type Note Facility 01-03-2024 Note Continue toprol [facility] 01-03-2024 Note Noted + orthostatic vitals, hypotension and tachcyardia with position changes. Increase toprol today and midodrine Increase sodium intake and continue adequate hydration RTC with Dr Harding as scheduled He may benefit from evaluation at neurocardiogenic clinic at [facility] 01-03-2024 Note Patient here c/o marcella r syncopal episodes. Says this is happening when he sits up. He feels lightheaded and his face goes pale . Still gets intermittent chest pain. Says he's SOB even with writing. Review of Systems Cardiovascular: Positive for chest pain, dyspnea on exertion and near-syncope. Respiratory: Positive for shortness of breath. Neurological: Positive for light-headedness and seizures. All other systems reviewed and are negative. [facility] 01-03-2024 Note UTP CARDIOLOGY PROGR ESS NOTE HPI: Bhavna Kovacs is a 23 y.o. male here for routine F/U HPI 23 yo presents today for evaluation. Known h/o syncope, seizures, palpitations and loop recorder monitoring. Pt has recently been evaluated for seizures in ED twice since our last visit. Neurology has adjusted his medications. Patient here c/o near syncopal episodes. Says this is happening when he sits up. He feels lightheaded and his face goes pale . Still gets intermittent chest pain. Says he's SOB even with writing. Admits lightheadedness and near syncope with position changes. Denied any further seizures since last hospitalization. Review of Systems Cardiovascular: Positive for chest pain, dyspnea on exertion and near-syncope. Respiratory: Positive for shortness of breath. Neurological: Positive for light-headedness and seizures. All other systems reviewed and are negative. ILR remote monitoring report- [facility] [employer] Loop Recorder Report BATTERY JIM: Above 10% Charge Remaining ARRHYTHMIAS 26 TACHY Fastest 173 bpm for 8 sec on 6 SYMPTOM NST at 108 bpm AF BURDEN 0% COUNTER and SETTINGS October 19, 2023- December 15, 2023 Symptom total 6 Tachy 26 (none with symptoms) Pause 0 Sim 0 AT 0 AF 0 November- 2 episodes of reported Symptoms- SOB and lightheaded- reviewed rhythm strips- pt remained in sinus rhythm Event Description Date/Time Duration Rate Assessment T-46 Tachy (SVT) November 12, 2023 12:07 EDT 23 s Avg 173 bpm Max 184 bpm 11/24/23 evaluation for seizures 12/01/23 ED at [facility] and transfer to [facility] Date of evaluation: 12/01/23 CHIEF COMPLAINT Chief Complaint Patient presents with Seizures Hx of was just admitted to [facility] for seizures sent to [facility], had 2 seizures there, on 3 different meds took all meds today Head Injury Hit head on left side, HISTORY OF PRESENT ILLNESS The history is provided by the patient and medical records. The patient is a 23-year-old who is brought in by ambulance after seizure-like activity earlier today at [facility]. Per EMS, patient just completed his first physical therapy session, was seated in his wheelchair when he subsequently had 2 alpx-yc-rklf seizures. She reportedly fell forward from his wheelchair striking his forehead on the floor. Patient gained consciousness and was aware of his surroundings shortly thereafter. No tongue trauma, no loss of control of bowel or bladder. She was recently discharged from [facility] for seizure-like activity and difficulty with ambulation. She has been compliant with her seizure medications which includes medical, Briviact and Onfi. It is reported that she underwent EEG monitor in August 2023 that captured the events and were intubated as nonepileptic seizures. 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 2) Data Reviewed Patient's EKG independently interpreted by me: Normal sinus rhythm with sinus arrhythmia, heart rate 77, T wave morphology feels normal, no pathologic ST elevations or ST depressions. Previous HPI per Dr Harding HPI: Bhavna Kovacs is a 23 y.o. [...] to male transgender [facility]- Maternal grandmother early [place]- 30's, Maternal grandfather- early [place] in 40's Allergies-none Home meds-Effexor and testosterone injections Per Dr. Harding 09/23/20 HPI: 20-year-old patient with a history of (more content not included)... [facility] 01-03-2024 Note C/O tachycardia and will increase toprol to 25 mg daily Monitor for low b/p and increased lightheadedness/dizziness and if needed can decrease back to 12.5 mg daily [facility] 01-03-2024 Note Recent initiation of toprol- he c/o continued tachycardia and palpitations- will increase toprol Noted orthostasis therefore will increase midodrine to 10 mg tid and continue hydration and add salt/electrolyte replacement to diet. Syncopal episode 08/23/23 with 1 day hospitalization at the [facility] 01-03-2024 Note stable [facility] 12-01-2023 Hospital Discharge instructions Aman Tapia MD - 12/01/2023 6:27 PM EDT Return to this emergency room immediately if your symptoms persist, worsen or if new ones form. Make sure you follow-up with your primary care doctor within the next 1-2 business days. The following attachments cannot be sent through Care Everywhere.Seizure (Bhutanese)documented in this encounter [facility] 11-16-2023 Note Syncopal episode 07/29 01/17 with 1 day hospitalization at the [facility] 11-16-2023 Note Noted SVT on loop in Jul- rate 150-170- but this does not correlate with 08/23/23 when he had syncopal episode and spent 1 day in hospital and received stitches for laceration. Start toprol 12.5 mg daily for SVT and d/w pt to call office for worsening dizzness/lightheadedness/syncope or low blood pressure- and or fatigue. [facility] 11-16-2023 Note UTP CARDIOLOGY PROGR ESS NOTE HPI: Bhavna Kovacs is a 23 y.o. male here for 3 month F/U HPI 23 yo presents today for routine F/U and loop recorder monitoring for palpitations and seizure like activity. Review of Systems Constitutional: Negative. Respiratory: Negative. Cardiovascular: Negative. Neurological: Positive for syncope. All other systems reviewed and are negative. Previous HPI per Dr Harding HPI: Bhavna Kovacs is a 23 y.o. [...] to male transgender FMH- Maternal grandmother early [place]- 30's, Maternal grandfather- early [place] in 40's Allergies-none Home meds-Effexor and testosterone injections Per Dr. Harding 09/23/20 HPI: 20-year-old patient with a history of seizure disorder was recently seen by Ms. Bruce for complaints of palpitations. He states that he has felt them quite often and was significantly bothered by it on August 10 that he went to [facility]. EKG that performed shows evidence of sinus [...] history Family medical history-paternal grandfather of an [place] at 46 years of age, paternal uncle [...] dry. Capillary Refill (more content not included)... [facility] 09-20-2023 History of Present illness Narrative Images from the original note were not included. [facility] [address] [facility] [facility] [address] Subjective Patient ID: Bhavna Kovacs is [...] new bowel/bladder dysfunction, saddle anesthesia, balance problems, sports reporter strength weakness, difficulty with buttoning/writing, and loss of coordination. Current and prior evaluation and treatments: -Medication trials for this problem: Tylenol - Alternative methods to treatment: None -Physical therapy/Home exercise program: None -urgent care: None -Pain management: None -Pertinent spine surgeries/previous [...] Debbie Camacho MD on 09/12/2023 9:44 AM Nahun Osorio MD have personally reviewed the image(s) and [...] seen. Carina Garcia MD Clinical Neurophysiology Fellow [facility] Teaching/Attending Physician Attestation: I have personally reviewed [...] epilepsy. Carina Garcia MD Clinical Neurophysiology Fellow [facility] Teaching/Attending Physician Attestation: I have personally reviewed [...] kidney disease Diabetes mellitus type 2, controlled ([facility]) states diagnosed on Tuesday DUFFY (dyspnea on exertion) Epilepsy ([facility]) Gender dysphoria Head injury Panic disorder Seizures ([facility]) last seizure was November 13 had 5-6+ [...] procedures Referring and communicating with other health zoo caretaker (not separately reported) Documenting clinical information in the electronic or other health record Independently interpreting results (not separately reported) and communicating results to the patient/family/caregiver Care coordination (not separately reported) Sarah Rice [facility] This note was created with the assistance of a speech recognition program. While intending to generate a timely document that accurately reflects the content of the visit, no guarantee can be provided that every grammatical or spelling mistake has been or will be identified or corrected. Thank you for your understanding. MILAGROS Duffy 09/23/23 0806 documented in this encounter [facility] 09-20-2023 Instructions MILAGROS Duffy - 09/20/2023 11:00 AM EDT Physical therapy, call to schedule Ibuprofen 600 mg every 8 hours as needed for pain Tizanidine 2 mg every 8 hours as needed for muscle spasms Follow up in 8 weeks The following attachments cannot be sent through Care Everywhere.Back Precautions (Bhutanese)documented in this encounter [facility] 09-19-2023 History of Present illness Narrative Nexplanon [...] contraceptive mere was inserted according to the steel finisher's instructions without complications. The mere was palpable [...] This Encounter Procedures POCT , urine VANESA HAILE, RN EXAMINER documented in this encounter [facility] 09-15-2023 Miscellaneous Notes Please schedule him for cystoscopy/possible bilateral retrograde pyelograms under local anesthesia with Dr. Mckeon at [place]. Diagnosis: Gross hematuria, urinary retention DR MCKEON: PLEASE REVIEW AND ADVISE IF YOU WANT THIS CASE UNDER LOCAL OR MAC. THANK YOU mac documented in this encounter [facility] 09-15-2023 Telephone encounter Note Please schedule him for cystoscopy/possible bilateral retrograde pyelograms under local anesthesia with Dr. Mckeon at [place]. Diagnosis: Gross hematuria, urinary retention [facility] 09-15-[address] MCKEON: PLEASE REVIEW AND ADVISE IF YOU WANT THIS CASE UNDER LOCAL OR MAC. THANK YOU [facility] 09-15-2023 Telephone encounter Note mac [facility] 09-13-2023 History of Present illness Narrative Bhavna [...] cyst from CT scan from 2-2 at [facility]. Reviewed contraceptive options with patient, including CHC [...] kidney disease Diabetes mellitus type 2, controlled ([facility]) states diagnosed on Tuesday DUFFY (dyspnea on exertion) Epilepsy ([facility]) Gender dysphoria Head injury Panic disorder Seizures ([facility]) last seizure was November 13 had 5-6+ seizures SVT (supraventricular tachycardia) Transgender Urinary tract infection Visual impairment SURGICAL HX Past Surgical History: Procedure Laterality Date BREAST SURGERY Bilateral 12/04/2020 mastectomy CYSTOSCOPY INSERTION STENT URETER Right 11/24/2021 Performed by Debbie Mckeon MD at [facility] CYSTOSCOPY REMOVAL STENT Right 12/09/2021 Performed by Debbie Mckeon MD at [facility] INSERTION LOOP RECORDER 08/03/2023 LASER HOLMIUM URETEROSCOPY RENAL STONES < OR=1CM Right 11/24/2021 Performed by Debbie Mckeon MD at [facility] FAMILY HX Family History Problem Relation Age [...] this visit: Cyst of left ovary - [facility] - [place] [facility] - [place], [place] - Consult LIKELY OVULATORY FOLLICULAR CYST FU PELVIC SONO NEXPLANON PLACEMENT SCHEDULED NEXT WEEK WILL PROVIDE OVULATORY SUPPRESSION AND CONTRACEPTION UPT TODAY AND RPT NEXT WEEK PRIOR TO INSERTION CONSIDER TESTOSTERONE PELLETS FOR FUTURE HRT URINARY RETENTION UNKNOWN ETIOLOGY--EST ETIOLOGY MD Francia MIMS LPN documented in this encounter [facility] 09-07-2023 Evaluation + Plan note Associated Problem(s): [...] necessary will be determined at the follow-up. [facility] 09-07-2023 Miscellaneous Notes Associated Problem(s): Right kidney [...] at the follow-up. documented in this encounter [facility] 09-07-2023 History of Present illness Narrative Images from the original note were not included. [address] [place] [address] [facility] [address] Patient: Bhavna Kovacs Date of : 2000 [...] not address his issues. He went to [place] [facility] on 07/29/2023. Report from CT without contrast [...] cc Summary of old records: Notes from me 07/07/23: He is status post cystoscopy/right ureteroscopy/stent placement 11/24/2021. This was for treatment of a 1.8 cm right renal pelvic stone. The stent was removed 12/09/2021. He started to have back pain in April. I do not have the records, but he reports that he went to [facility] both for seizures and back pain. He [...] kidney disease Diabetes mellitus type 2, controlled ([facility]) states diagnosed on Tuesday DUFFY (dyspnea on exertion) Epilepsy ([facility]) Gender dysphoria Head injury Panic disorder Seizures ([facility]) last seizure was November 13 had 5-6+ seizures SVT (supraventricular tachycardia) Transgender Urinary tract infection Visual impairment Past Surgical History: Procedure Laterality Date BREAST SURGERY Bilateral 12/04/2020 mastectomy CYSTOSCOPY INSERTION STENT URETER Right 11/24/2021 Performed by Debbie Mckeon MD at [facility] CYSTOSCOPY REMOVAL STENT Right 12/09/2021 Performed by Debbie Mckeon MD at [facility] LASER HOLMIUM URETEROSCOPY RENAL STONES < OR=1CM Right 11/24/2021 Performed by Debbie Mckeon MD at [facility] Family History Problem Relation Age of [...] pain with bilateral sciatica - [facility]; Future Cyst of left ovary - [facility] - [facility] - [place], [place] - Consult; Future Gross hematuria - [...] center for the back pain. Referral to fashion artist for the ovarian cyst. Previous ultrasound showed [...] Segura 09/07/23 1330 documented in this encounter [employer] 08-16-2023 Miscellaneous Notes This patient was scheduled to see you last week on 08/10/23 in [place]. We rescheduled his appointment to 09/07/23. He was okay with that but he wanted to let you know that he is still see's blood in his urine. I told him that I would relay that to you. Please apologize for me. Let him know I was out sick. Is he willing to come to [place] again I can squeeze him in at 11:45 sometime this week documented in this encounter [facility] 08-16-2023 Telephone encounter Note This patient was scheduled to see you last week on 08/10/23 in [place]. We rescheduled his appointment to 09/07/23. He was okay with that but he wanted to let you know that he is still see's blood in his urine. I told him that I would relay that to you. [facility] 08-16-2023 Telephone encounter Note Please apologize for me. Let him know I was out sick. Is he willing to come to [place] again I can squeeze him in at 11:45 sometime this week [facility] 08-10-2023 History of Present illness Narrative Subjective [...] told Yonatan it was a pinched nerve. Yonatan has difficulty sleeping. BP 120/70 (BP Location: [...] reflexes: Aj's absent. Ankle clonus absent. Coordination Xsqzpe-[id number]-[id number], rapid alternating movements and dcff-kg-gock normal bilaterally without dysmetria. Gait Normal casual, [...] 100 mg daily Yonatan can buy on [employer] to treatment memory health and numbness. Migraines have not worsened and Imitrex aborts them. documented in this encounter [facility] 08-03-2023 Note LOOP IMPLANT PROCEDU RE NOTE DATE OF PROCEDURE: 08/03/23 PERFORMING PHYSICIAN: Dr. Aaron Harding LAMP SHADE JOINER: SHARRI INDICATIONS FOR PROCEDURE: 1. SVT surveillance [...] the sternum on the left using the [employer] tool. The loop recorder was then injected [...] 2. Do not wet the incision. Aaron Harding MD Cardiac Electrophysiology. [facility] 08-02-2023 Miscellaneous Notes Please call for an [...] for UA/PVR Pt states he went to [facility] after his 07/28/2023 ER visit and was told that he has an ovarian cyst and kidney stones. I called to request the records/images to PACS but had to [facility]. I also sent a fax request. [facility] fax # [phone] Yareli/Renetta: Can we get him for an appointment here or [place] in the next week or two? Patient has been scheduled for next Tuesday in our [place] office. documented in this encounter [facility] [employer] [facility] 08-02-2023 Telephone encounter Note Please call for [...] the next week or so for UA/PVR [facility] Tele[facility] encounter Note Pt states he went to [facility] after his 07/28/2023 ER visit and was told that he has an ovarian cyst and kidney stones. I called to request the records/images to PACS but had to [facility]. I also sent a fax request. [facility] fax # [phone] [employer] [facility] 08-02-2023 Telephone encounter Note Buffy: Can we get him for an appointment here or [place] in the next week or two? [facility] 08-02-2023 Telephone encounter Note Patient has been scheduled for next Tuesday in our [place] office. Subtextual [facility] 07-07-2023 Evaluation + Plan note Associated Problem(s): [...] a referral to the spine care center. [facility] 07-07-2023 Miscellaneous Notes Associated Problem(s): Right kidney [...] spine care center. documented in this encounter [facility] [employer] [facility] 07-07-2023 History of Present illness Narrative Images from the original note were not included. [address] [place] [address] Patient: Bhavna Kovacs Date of : 2000 [...] but he reports that he went to [facility] both for seizures and back pain. He [...] kidney disease Diabetes mellitus type 2, controlled ([facility]) states diagnosed on TuesdayE (dyspnea on exertion) Epilepsy ([facility]) Gender dysphoria Head injury Panic disorder Seizures ([facility]) last seizure was November 13 had 5-6+ seizures SVT (supraventricular tachycardia) ([facility]) Transgender Urinary tract infection Visual impairment Past Surgical History: Procedure Laterality Date BREAST SURGERY Bilateral 12/04/2020 mastectomy CYSTOSCOPY INSERTION STENT URETER Right 11/24/2021 Performed by Debbie Mckeon MD at [facility] CYSTOSCOPY REMOVAL STENT Right 12/09/2021 Performed by Debbie Mckeon MD at [facility] LASER HOLMIUM URETEROSCOPY RENAL STONES < OR=1CM Right 11/24/2021 Performed by Debbie Mckeon MD at [facility] Family History Problem Relation Age of [...] Segura 07/07/23 1248 documented in this encounter [facility] [employer] 07-07-2023 Instructions DAWSON Segura - 07/07/2023 11:00 AM EST I do not see any obvious stones on x-ray. There are some limitations with the study though, so to rule out your kidneys as the source of the pain, let us have you get an ultrasound. Call central scheduling at [phone] to schedule the ultrasound. I will watch [...] investigate musculoskeletal sources for your symptoms [employer]: [phone] (Ext [phone]) Gauri documented in this encounter [employer] 06-17-2023 Note [facility] Consult Note Reason [...] to male transgender FMH- Maternal grandmother early [place]- 30's, Maternal grandfather- early [place] in 40's Allergies-none Home meds-Effexor and testosterone injections Per Dr. Harding 09/23/20 HPI: 20-year-old patient with a history of seizure disorder was recently seen by Ms. Bruce for complaints of palpitations. He states that he has felt them quite often and was significantly bothered by it on August 10 that he went to [facility]. EKG that performed shows evidence of sinus [...] history Family medical history-paternal grandfather of an [place] at 46 years of age, paternal uncle [...] alcohol abuse, H (more content not included)... [facility] 06-17-2023 Note Patient here for fol low up event monitor and echo. He is c/o chest pain, SOB, palpitations, and lightheadedness. Review of Systems Cardiovascular: Positive for chest pain, dyspnea on exertion, palpitations and syncope. Respiratory: Positive for shortness of breath. Neurological: Positive for light-headedness and seizures. All other systems reviewed and are negative. [facility] 02-06-2023 Hospital Discharge instructions Davidson Ortez [...] any other concerns. documented in this encounter [facility] 02-01-2023 Note Orthostatic vitals t judy were unrevealing, discussed with patient to maintain adequate hydration, add extra sodium to diet to help maintain higher blood pressure and will start midodrine 5 mg 3 times daily to see if symptoms improve Return to clinic after event monitor is complete and echo completed to review [facility] 02-01-2023 Note Patient reports dysp marcella [...] cardiac function, and for any concerning arrhythmias [facility] 02-01-2023 Note Patient reports seiz ure [...] pressures in light of dyspnea on exertion [facility] 02-01-2023 Note Intermittent palpita tions with noted lightheadedness/dizzness, and DUFFY. Will order 30 day event monitor to assess for any concerning arrythmias that may co-orelate with seizure activity also, [facility] 02-01-2023 Note UTP CARDIOLOGY PROGR ESS [...] to male transgender FMH- Maternal grandmother early [place]- 30's, Maternal grandfather- early [place] in 40's Review of Systems Constitutional: Positive [...] on August 10 that he went to [facility]. EKG that performed shows evidence of sinus [...] history Family medical history-paternal grandfather of an [place] at 46 years of age, paternal uncle [...] Thought Content: T (more content not included)... [facility] 12-10-2020 Note HNO ID: [id number] Author: Tamiko Morin MD Service: ? Author [...] Past Histories independently gathered by the clinical administrative support technician and the remaining scribed note accurately describes my personal service to the patient. Tamiko Morin MD [facility] 12-05-2020 Note HNO ID: [id number] Author: Gerri Gordillo Service: Pharmacy Author Type: ? Type: Plan of Care Filed: 12/05/2020 5:06 PM Note Text: PHARMACY BEDSIDE DELIVERY SERVICE Patient Name: Bhavna Kovacs The marked outpatient medications were Filled at: [facility] and delivered to the patient's bedside [...] 1 Ndle Commonly known as: BD Disposable [place] For use to withdraw testosterone Q2wks * [...] known as: EFFEXOR XR Gerri Gordillo PAGER: [phone] December 05, 2020 5:04 PM [facility] 12-05-2020 Note HNO ID: [id number] Author: Fortunato Langford MD Service: Neurology Adult Epilepsy Author Type: Fellow Type: Plan of Care Filed: 12/05/2020 11:54 AM Note Text: Plan of care epilepsy consult team Interval history: -Overnight, at 2119 episode of side to side head shaking < 2 minutes, eyes were closed without loss of consciousness. -Seen today, stable, he reports he is being weaned from Dilantin (Current dose 100 mg OD from 300 OD), He is currently on LTG 50 BID. -Patient had a previous admission on 11/2019 at [facility] and diagnosed with PNES (was not admitted on any AEDs). DATA: -12/05/2020 03:37:00 - 12/05/2020 10:47:00: No epileptiform discharges or EEG seizures were recorded. Summary: 20 year old with a medical history of PNES (previously diagnosed at [facility] in 11/2019 with normal EEG) who [...] further evaluation. Fortunato Langford MD Epilepsy fellow [facility] 12-05-2020 Note HNO ID: [id number] Author: CEHYENNE Sewell Service: Care Management Author Type: Regulatory Process Manager Type: Care Mgt Progress Note Filed: 12/05/2020 [...] planning services during this admission, please call [phone]. CHEYENNE Sewell December 05, 2020 10:46 AM SIGNATURE: CHEYENNE Sewell PATIENT NAME: Bhavna Kovacs DATE: December 05, 2020 TIME: 10:46 AM PAGER/CONTACT #: [phone] [facility] 12-05-2020 Note HNO ID: [id number] Author: Veto Looney MD Service: Plastic Surgery [...] December 05, 2020 TIME: 6:17 AM PAGER: [phone] After 6PM AND on weekends, please page [phone] (Plastic Surgery on-call) [facility] 12-05-2020 Note HNO ID: [id number] Author: Veto Looney MD Service: Plastic Surgery [...] - BEM ordered - Continue telemtry - [facility] consult for history of PNES - Appreciate epilepsy recs Veto Looney MD PGY-1 Plastic Surgery P: [phone] December 04, 2020 10:42 PM After 6PM AND on weekends, please page [phone] (Plastic Surgery on-call) [facility] 12-05-2020 Note HNO ID: [id number] Author: Kirsten Landis APRN.AMELIA Service: Neurology Adult Epilepsy Author Type: Nurse [...] exam, no focal deficits. Discussed with staff pupil personnel services director, would recommend EEG to capture episode as it has occurred twice now. Continue home seizure medications. Would recommend for patient to be evaluated by psych/social work given history of PNES. Kirsten Landis NP Pager: [phone] [facility] 12-04-2020 Note HNO ID: [id number] Author: Linnea Leslie DO Service: Plastic Surgery [...] the patient overnight. [place]y/[place] [phone] if patient has additional seizures. Plastic surgery pupil personnel services director ([phone]) was notified and patient was examined together at [place]. [place] [phone]. Kristen Leslie PGY2 plastic surgery [phone] [facility] 11-26-2020 Note HNO ID: [id number] Author: Tamiko Morin MD Service: ? Author [...] Past Histories independently gathered by the clinical administrative support technician and the remaining scribed note accurately describes my personal service to the patient. Tamiko Morin MD [facility] 11-26-2020 Note HNO ID: [id number] Author: Madeline Denney LPN Service: ? Author Type: ? Type: Progress Notes Filed: 11/26/2020 2:12 PM Note Text: Correspondence received from Dr. Marr and Angella. See scanned documents. [facility] 11-25-2020 Note HNO ID: [id number] Author: Madeline Denney LPN Service: ? Author Type: ? Type: Progress Notes Filed: 11/25/2020 1:58 PM Note Text: Request for neurology optimization faxed to [phone]. Marr. Scheduled for bl mastectomy 12/04/20. Request for recent echo faxed to [employer] as well. [facility] 12-05-2019 History of Past i llness Narrative [...] of this encounter (statuses as of 04/09/2022) [facility] [place] noteNo assessment information availableAdena Health System Work Phone: Evaluation note* Diagnosis Seizure (HCC) Other convulsions [facility] Diagnosis Right kidney stone- Primary [facility] Diagnosis Intractable complex partial epilepsy (CMS/HCC)- Primary Cervical radiculopathy Brachial neuritis or radiculitis nos Insomnia due to medical condition Organic insomnia, unspecified Migraine without aura and without status migrainosus, not intractable (CMS/HCC) Memory loss Neck pain Cervicalgia Cervical paraspinal muscle spasm Spasm of muscle [facility] Diagnosis Right kidney stone- Primary Chronic bilateral low back pain with bilateral sciatica Cyst of left ovary Other and unspecified ovarian cyst Gross hematuria [facility]* Diagnosis Low back pain, unspecified back pain laterality, unspecified chronicity, unspecified whether sciatica present- Primary [facility] Neck pain- Primary Cervicalgia [facility] Diagnosis Right kidney stone Irregular menstrual cycle- Primary Cyst of left ovary Other and unspecified ovarian cyst [facility] Diagnosis Right kidney stone Encounter for initial prescription of implantable subdermal contraceptive- Primary [facility] Diagnosis Right kidney stone Muscle spasm- Primary Spasm of muscle Chronic bilateral low back pain, unspecified whether sciatica present documented [facility] Diagnosis Seizure-like activity (HCC)- Primary Other convulsions [facility] Additional Instructions If your symptoms return/worsen or you develop any further concerns or symptoms please see your doctor or return to the emergency department immediately.[facility] Work Phone: Hospital Discharge instructions Additional Instructions Follow-up with primary care doctor Return to ED if develop worsening symptoms or [facility] Work Phone: [facility] Discharge instructions[facility] Work Phone: Hospital Discharge instructions Additional Instructions Continue current [facility] Work Phone: Hospital Discharge [...] of breath, abdominal pain, urinary complaints, nausea, vomiting.[facility] Work Phone: Hospital Discharge instructions Additional Instructions If your symptoms return/worsen or you develop any further concerns or symptoms please see your doctor or return to the emergency department immediately. Please be sure to follow-up with your neurologist.[facility] Work Phone: Hospital Discharge instructions Additional Instructions Continue your medication as prescribed Increase oral fluids Follow-up with your neurologist Return to the ER for uncontrolled seizures seizures lasting longer than 5 minutes fever or any other [facility] Work Phone: InstructionsNot on filedocumented in this encounter [facility]ructionsNot on filedocumented in this encounter [facility] filedocumented in this encounter [facility]Not on filedocumented in this encounter [facility]ructionsNot on filedocumented in this encounter [facility]ructionsNot on filedocumented in this encounter [facility]ructionsNot on filedocumented in this encounter [facility] for referral (narrative)* Consultation (Routine) - Pending Review Specialty Diagnoses / Procedures Referred By Carlos A boyle Referred To Contact Obstetrics and Gynecology Diagnoses Cyst of left ovary Enriqueta Tse PA [address] [place] [address] [facility] [address] [place] [address] Referral ID Status Reason Start Date Expiration Date Visits Requested Visits Authorized [id number] Pending Review Specialty Services Required 09/07/2023 09/06/2024 1 1 * Consultation (Routine) - Pending Review Specialty Diagnoses / Procedures Referred By Carlos A boyle Referred To Contact Spine Care Diagnoses Chronic bilateral low back pain with bilateral sciatica Enriqueta Tse PA [address] [place] [address] [facility] [address] [place] [phone] Referral ID Status Reason Start Date Expiration Date V isits Requested Visits Authorized [id number] Pending Review 09/07/2023 09/06/2024 1 1 [facility] Summary Purpose Family History No Family History Records Found Relationship Condition Age at Onset Recorded Date/T nain Not Specified No pertinent family history Unknown Advance Directives No Advanced Directives Records Found Advance Directive Response Recorded Date/ Time Advance Directives Yes January 05 1:48pm Documents on File Type Date Recorded Patient Tax Advisor Expl anation Advance Directive(s) 11/25/2020 10:24 AM Advance Directive Response Recorded Date/ Time Advance Directives Yes January 05 12:48pm Latest Code Status on File Code Status Date Activated Date Inactivated Comments Full Code 07/17/2017 5:41 AM 07/17/2017 8:14 PM Advance Directive Response Recorded Date/ Time Advance Directives Yes October 20, 1:02pm Advance Directive Response Recorded Date/ Time Advance Directives Yes October 20, 023 12:02pm Latest Code Status on File [...] Seizure (HCC) Davidson Ortez MD [address] [place] [address] Caleb Easton MD [address] [facility] [address] [place] [address] Referral ID Status Reason Start Date Expiration Date V isits Requested Visits Authorized [id number] Open Specialty Services Required 02/06/2023 08/05/2023 1 [...] complex partial epilepsy (CMS/HCC) Lavonne Davies NP [address] [facility] [address] [address] Referral ID Status Reason Start Date Expiration Date Visits Re quested Visits Authorized [id number] Closed 1 1 Specialty Diagnoses / Procedures Referred By Contac t Referred To Contact Rehabilitation Diagnoses Chronic bilateral low back pain with bilateral sciatica Muscle spasm Sarah Rice, [employer] THERAPIST [address] [place] [address] Referral ID Status Reason Start Date Expiration Date Visits Requested Visits Authorized [id number] Pending Review Specialty Services Required 09/20/2023 03/22/2024 1 1 Additional Source Comments INFORMATION SOURCE (unrecogn ized section and content) DATE CREATED AUTHOR 09/02/2018 [facility] DATE CREATED AUTHOR AUTHOR'S ORGANIZ ATION 10/20/2018 [facility] DATE CREATED AUTHOR AUTHOR'S ORGANIZ ATION 03/24/2021 [facility] DATE CREATED AUTHOR AUTHOR'S ORGANIZ ATION 09/16/2021 [facility] DATE CREATED AUTHOR AUTHOR'S ORGANIZ ATION 09/17/2021 [facility] DATE CREATED AUTHOR AUTHOR'S ORGANIZ ATION 09/28/2022 [facility] DATE CREATED AUTHOR AUTHOR'S ORGANIZ ATION 02/06/2023 [facility] DATE CREATED AUTHOR AUTHOR'S ORGANIZ ATION 10/12/2023 [facility] DATE CREATED AUTHOR AUTHOR'S ORGANIZ ATION 12/02/2023 [facility] DATE CREATED AUTHOR AUTHOR'S ORGANIZ ATION 12/10/2023 [facility] DATE CREATED AUTHOR AUTHOR'S ORGANIZ ATION 12/15/2023 [facility] DATE CREATED AUTHOR AUTHOR'S ORGANIZ ATION 12/29/2023 [facility] DATE CREATED AUTHOR AUTHOR'S ORGANIZ ATION 01/16/2024 [facility] DATE CREATED AUTHOR AUTHOR'S ORGANIZ ATION 01/25/2024 [facility] DATE CREATED AUTHOR AUTHOR'S ORGANIZ ATION 01/28/2024 [facility] Care Teams (unrecognized sec tion and [...] French , DO Primary Care Provider Active Los Mcnally , DO Emergency Provider Active Team Status: Inactive Member Role Status Dates Eric French , DO Primary Care Provider Active Mario Alberto Jose MD Emergency Provider Active Urban Renewal Manager Relationship Specialty Start Date End Date Eric French Sr. [address] [place] [address] PCP - General Family Medicine 03/29/19 Team Status: Inactive Member Role Status Dates Luz Fiore , Emergency Provider Active Eric French , DO Primary Care Provider Active Brandon Verde DO RES Active Team Status: Inactive Member Role Status Dates Los Mcnally , Emergency Provider Active Eric French , DO Primary Care Provider Active Aman Cortes DO RES Active Team Status: Inactive Member Role Status Dates Eric French , DO Primary Care Provider Active Attila Nelson , Emergency Provider Active Team Status: Inactive Member Role Status Dates Roberto Whittaker , Emergency Provider Active Eric French , DO Primary Care Provider Active Team Status: Inactive Member Role Status Dates Shanelle Bowen PA-C Emergency Provider Active Eric French , DO Primary Care Provider Active Team Status: Inactive Member Role Status Dates Eric French , Primary Care Provider Active Federica Wolfe , GAMING CAGE CASHIER- Emergency Provider Active Urban Renewal Manager Relationship Specialty Start Date End Date Eric French Sr., DO [address] [place] [address] PCP - General Family Medicine 07/17/17 Team Status: Inactive Member Role Status Dates Eric French DO Primary Care Provider Active Margarita Gallo MD RES Active CATARINA RondonC Emergency Provider Active Team Status: Active Member Role Status Dates NON STAFF Primary Care Provider Active Team Status: Inactive Member Role Status Dates Mario Alberto Jose MD Emergency Provider Active NON STAFF Primary Care Provider Active Team Status: Inactive Member Role Status Dates Luz Fiore DO Emergency Provider Active NON STAFF Primary Care Provider Active Urban Renewal Manager Relationship Specialty Start Date End Date Eric French DO [address] [place] [address] PCP - General Family Medicine 03/12/20 Urban Renewal Manager Relationship Specialty Start Date End Date Eric French DO [address] [place] [address] PCP - General Family Medicine 03/12/20 Urban Renewal Manager Relationship Specialty Start Date End Date Eric French MD [address] [place] [address] PCP - General Family Medicine 02/11/23 Urban Renewal Manager Relationship Specialty Start Date End Date Eric French DO [address] [place] [address] PCP - General Family Medicine 03/12/20 Urban Renewal Manager Relationship Specialty Start Date End Date Eric French DO [address] [place] [address] PCP - General Family Medicine 03/12/20 Urban Renewal Manager Relationship Specialty Start Date End Date Eric French DO [address] [place] [address] PCP - General Family Medicine 03/12/20 Urban Renewal Manager Relationship Specialty Start Date End Date Eric French DO [address] [place] [address] PCP - General Family Medicine 03/12/20 Urban Renewal Manager Relationship Specialty Start Date End Date Eric French DO [address] [place] [address] PCP - General Family Medicine 03/12/20 Urban Renewal Manager Relationship Specialty Start Date End Date Eric French DO [address] [place] [address] PCP - General Family Medicine 03/12/20 Urban Renewal Manager Relationship Specialty Start Date End Date Eric French DO [address] [place] [address] PCP - General Family Medicine 03/12/20 Urban Renewal Manager Relationship Specialty Start Date End Date Eric French DO [address] [place] [address] PCP - General Family Medicine 03/12/20 Urban Renewal Manager Relationship Specialty Start Date End Date Eric French DO [address] [place] [address] PCP - General Family Medicine 03/12/20 Urban Renewal Manager Relationship Specialty Start Date End Date Eric French Sr., [address] [place] [address] PCP - General Family Medicine 07/17/17 Urban Renewal Manager Relationship Specialty Start Date End Date Eric French Sr., [address] [place] [address] [place] [address] PCP - General Family Medicine 07/17/17 Goals [...] or prosecute any alcohol or drug abuse patient.[facility] Reason for Visit (unrecogniz ed section and content) Reason Comments Seizures Pt has hx of epileps y, pt has had 14 seizures today Reason Comments Follow-up Pt is here for consu lt on ovarian cyst. Specialty Diagnoses / Procedures Referred By Contsalty t Referred To Contact Obstetrics and Gynecology Diagnoses Cyst of left ovary Enriqueta Tse PA [address] [place] [address] [facility] [address] [place] [address] Referral ID Status Reason Start Date Expiration Date V isits Requested Visits Authorized [id number] Closed Specialty Services Required 09/07/2023 09/06/2024 1 1 Reason Comments Contraception Reason Comments Consult New patient , lumbar , x-rays Specialty Diagnoses / Procedures Referred By Carlos A t Referred To Contact Spine Care Diagnoses Chronic bilateral low back pain with bilateral sciatica Enriqueta Tse PA [address] [place] [address] [facility] [address] [phone] Referral ID Status Reason Start Date Expiration Date V isits Requested Visits Authorized [id number] Pending Review 09/07/2023 09/06/2024 1 1 Reason Comments Seizures Hx of was just admit manjula to [facility] for seizures sent to [facility], had 2 seizures there, on [...] 1716 (New Bag - Prov ider: Jace Andrade, NATHANIEL)[phone] (Stopped - Provider: Ama Power RN) Scheduled [...] BE BASED ON THE PRIMARY CLINICAL RECORDS. [facility]ER[facility] assistant [facility]. provides no warranty or guarantee of the accuracy or completeness of information in this document.
[2024-01-28 23:26] LABS: Basophils Percent Auto 0.4 % (0.2-2.0); Eosinophils Absolute Auto 0.1 10^3/uL (0.0-0.7); Hematocrit 37.5 % (36.0-48.0); Hemoglobin 12.6 g/dL (12.0-16.0); Immature Granulocytes Abs Auto 0.02 10^3/uL (0.00-0.03); Immature Granulocytes Pct Auto 0.3 % (0.0-0.5); Lymphocytes Percent Auto 38.2 % (20.5-60.0); Mean Corpuscular HGB Conc 33.6 g/dL (29.9-35.2); Mean Corpuscular Hemoglobin 29.9 pg (26.7-34.0); Mean Corpuscular Volume 89.1 fL (81.0-99.0); Mean Platelet Volume 10.4 fL (9.5-13.5); Monocytes Absolute Auto 0.5 10^3/uL (0.3-0.8); Monocytes Percent Auto 6.2 % (1.7-12.0); Neutrophils Absolute Auto 4.3 10^3/uL (1.4-6.5); Neutrophils Percent Auto 53.9 % (43.0-75.0); Platelet Count 130 10^3/uL (150-450); Red Blood Count 4.21 10^6/uL (4.20-5.40); Red Cell Distribution Width 13.2 % (11.0-15.0)
[2024-01-28 23:42] LABS: Alanine Aminotransferase 14 U/L (14-59); Albumin Globulin Ratio 1.2; Albumin Level 3.8 g/dL (3.4-5.0); Alkaline Phosphatase 59 U/L (46-116); Anion Gap 9.3; Aspartate Amino Transferase 16 U/L (15-37); BUN Creatinine Ratio 12.2; Bilirubin Total 0.5 mg/dL (0.2-1.0); Calcium 8.8 mg/dL (8.5-10.1); Carbon Dioxide 28.3 mmol/L (21.0-32.0); Chloride 102 mmol/L (98-107); Estimated GFR (African America >60 (>=60); Estimated GFR (Non-African Ame >60 (>=60); Globulin 3.1 g/dL; Glucose 86 mg/dL (74-106); Potassium 3.6 mmol/L (3.5-5.1); Sodium 136 mmol/L (136-145); Total Protein 6.9 g/dL (6.4-8.2)
[2024-01-28 23:46] LABS: Lactate/Lactic Acid 0.8 mmol/L (0.4-2.0)
[2024-01-29 00:36] VITALS: BP 108/73; PULSE 96; O2SAT 100
== END 2024-01-29 00:39 | disposition home or self-care (01) ==
PROVIDERS: Emergency Provider Internal Medicine
DX: G40.909 Epilepsy, unspecified, not intractable, without status epilepticus (principal); F17.210 Nicotine dependence, cigarettes, uncomplicated
CPT/HCPCS: 36415; 70450; 72125; 80053; 80307; 83605; 85025; 93005; 99285

== ENCOUNTER 2024-06-18 11:35 | Emergency (ER) | payer OTHER, SELFPAY ==
[2024-06-18 11:38] VITALS: BP 110/71; PULSE 82; TEMP 36.6; O2SAT 98; BMI 16.5
[2024-06-18 11:53] LABS: Bilirubin Urine NEGATIVE (NEGATIVE); Blood Urine LARGE (NEGATIVE); Clarity Urine CLEAR (CLEAR); Color Urine LT. YELLOW (YELLOW); Glucose Urine UA NEGATIVE (NEGATIVE); Ketones Urine NEGATIVE (NEGATIVE); Leukocyte Esterase Urine NEGATIVE (NEGATIVE); Nitrite Urine NEGATIVE (NEGATIVE); Protein Urine NEGATIVE (NEG/TRACE); Urobilinogen Urine 0.2 EU/dL (0.2-1.0)
[2024-06-18 11:58] LABS: Bacteria Urine TRACE #/HPF (NONE SEEN); Mucus Urine TRACE (NONE SEEN); WBC Urine NONE SEEN #/HPF (NONE SEEN)
[2024-06-18 11:59] LABS: Cast Seen? NONE SEEN #/LPF (NONE SEEN); Crystals Seen? None Seen #/HPF (None Seen); Squamous Epithelial Cell Urine MANY #/LPF (NONE/RARE); Urine Culture Indicated NO
--- NOTE | 2024-06-18 12:42 | XR_ITS ---
The [address] [address] Patient Name: BHAVNA VILLAR MRN: [id number] date: 2000 Sex: F Assigned Patient Location: ER Current Patient Location: ER Accession/Order Number: [id number] Exam Date: 06/18/2024 13:14 Report Date: 06/18/2024 13:55 At the request of: ABRAN STEWART Procedure: XR abdomen 1V EXAMINATION: XR abdomen 1V HISTORY: kidney stone COMPARISON: No relevant comparison available. FINDINGS: KIDNEY/URETER - RIGHT: No visible renal or ureteral calcifications. KIDNEY/URETER - LEFT: No visible renal or ureteral calcifications. PELVIS: No visible ureteral calcifications. Any visible calcifications favor phleboliths. BOWEL: No abnormal dilation or deviation. Moderate stool BONES: No acute abnormality. OTHER: Negative. No abnormal gaseous collections. XR/XR abdomen 1V IMPRESSION: No definite urinary tract calculi Electronically authenticated by: DEBBIE SALINAS Date: 06/18/2024 13:55
--- NOTE | 2024-06-18 12:46 | ED.GENADUL1 ---
HPI HPI - General Adult General Chief complaint: Urogenital-Female Stated complaint: blood in urine Time Seen by Provider: 06/18/24 11:54 Source: patient Mode of arrival: walk-in Limitations: no limitations History of Present Illness HPI narrative: Patient is a 24-year-old female who is presenting to the ER today with chief complaint of right lower back, right flank and right lower quadrant pain. Pain started yesterday. The pain has been persistent, the severity the pain is waxing and waning. Patient is in transition from female to male, patient does have vagina. Patient has not had a menses in over a year. Patient states there is no way that she is , she does not want to be checked for . Patient does have a significant history of kidney stones. Patient did have a procedure in June were surgical intervention had to be done the other going to take out a kidney stone. Patient has passed several kidney stones in the past several years. Patient currently is having mild discomfort. Nausea no vomiting. No trauma. Patient send no traumatic vaginal intercourse, no foreign bodies in the vagina could be a result of having hematuria in her urine at all. Patient did notice pinkish/blood in the urine yesterday and today, was concerned about infection or kidney stone and came to the ER today. Patient does look very comfortable. Patient still has her gallbladder and appendix. All systems are negative except as noted/marked. All systems reviewed and otherwise negative. Nurses note and vital signs reviewed and patient is not hypoxic. General: The patient appears well and in no apparent distress. Patient is resting comfortably on cart. Patient is not toxic, lethargic, or listless. Patient is stoic Skin: Warm, dry, no pallor noted. There is no rash noted. No petechiae, purpura. Head: Normocephalic, atraumatic Eye: Normal conjunctiva, no drainage, EOMI. PERRL Ears, Nose, Mouth, and Throat: oral mucosa is moist. Nares patent. Mouth without vesicles. Cardiovascular: Regular Rate and Rhythm, no murmur, gallop, rub Respiratory: Patient is in no distress, no accessory muscle use, lungs are clear to auscultation, no wheezing, rales or rhonchi Back: Mild right lower paralumbar tenderness palpation, mild right flank pain, mild right lower quadrant tenderness to palpation, non-tender, no CVA tenderness bilaterally to percussion. No CT LS midline pain GI:mild Right lower quadrant tenderness palpation, otherwise no tenderness to palpation, no masses appreciated. No rebound, guarding, or rigidity noted. No distention Musculoskeletal: Patient has full range of motion of all of the extremities, no motor, sensory, or focal neurological deficits Neurological: A&O x4, normal speech Psychiatric: Cooperative Related Data Home Medications ?Medication ?Instructions ?Recorded ?Confirmed lamotrigine 100 mg tablet 100 mg PO BID 01/01/23 01/28/24 (Lamictal) brivaracetam 50 mg tablet 100 mg PO Q12H 08/23/23 01/28/24 (Briviact) clobazam 10 mg tablet 10 mg PO .qhs 08/23/23 01/28/24 midazolam 5 mg/spray (0.1 mL) 1 spray intranasal PRN PRN FOR 08/24/23 01/28/24 nasal spray (Nayzilam) SEIZURES atomoxetine 40 mg capsule 40 mg PO DAILY 01/28/24 01/28/24 erenumab-aooe 140 mg/mL 140 mg subcut .every 28 days 01/28/24 01/28/24 subcutaneous auto-injector (Aimovig Autoinjector) metoprolol succinate 25 mg 25 mg PO DAILY 01/28/24 01/28/24 tablet,extended release 24 hr midodrine 10 mg tablet 10 mg PO TID 01/28/24 01/28/24 sumatriptan succinate 100 mg tablet 100 mg PO PRN migraine headache 01/28/24 trazodone 100 mg tablet 100 mg PO .HS 01/28/24 01/28/24 ubrogepant 100 mg tablet (Ubrelvy) 100 mg PO PRN migraine headache 01/28/24 Previous Rx's ?Medication ?Instructions ?Recorded hydrocodone 5 mg-acetaminophen 325 1 tab PO Q4H PRN pain #6 tabs 06/18/24 mg tablet ketorolac 10 mg tablet 10 mg PO Q8H PRN pain 1 day #10 06/18/24 tabs ondansetron 4 mg disintegrating 4 mg PO Q4H PRN nausea and 06/18/24 tablet vomiting 3 days #6 tabs tamsulosin 0.4 mg capsule (Flomax) 0.4 mg PO DAILY 7 days #7 caps 06/18/24 Allergies Allergy/AdvReac Type Severity Reaction Status Date / Time codeine Allergy Unknown Rash Verified 01/28/24 22:06 Opioid HPI Opioid Management Most Recent Opioid Data: Last Pain Scale 5 06/18/24 13:25 06/18/24 Last ED Pain Assessment 06/18/24 13:25 Ur Phencyclidine Scrn Negative (NEGATIVE) 01/30/23 18:34 01/30/23 PFSH PFSH Social History Smoking status: Current every day smoker Little interest or pleasure in doing things: not at all Feeling down, depressed, or hopeless: not at all Exam Constitutional Vital Signs, click to edit/add: Last Vital Signs Temp 97.9 F 06/18/24 11:38 Pulse 82 06/18/24 11:38 Resp 18 06/18/24 11:38 BP 110/71 06/18/24 11:38 Pulse Ox 98 06/18/24 11:38 O2 Del Method Room Air 06/18/24 11:38 Course Vital Signs Vital signs: Vital Signs Temperature 97.9 F 06/18/24 11:38 Pulse Rate 82 06/18/24 11:38 Respiratory Rate 18 06/18/24 11:38 Blood Pressure 110/71 06/18/24 11:38 Pulse Oximetry 98 06/18/24 11:38 Oxygen Delivery Method Room Air 06/18/24 11:38 Temperature 97.9 F 06/18/24 11:38 Pulse Rate 82 06/18/24 11:38 Respiratory Rate 18 06/18/24 11:38 Blood Pressure 110/71 06/18/24 11:38 Pulse Oximetry 98 06/18/24 11:38 Oxygen Delivery Method Room Air 06/18/24 11:38 Medical Decision Making MDM Narrative Medical decision making narrative: X-ray shows no significant. Patient does have hematuria. Patient does have a significant history of kidney stones. Patient was sent home with Toradol, Flomax, Zofran and [place] to use if needed. Patient will follow-up with his urologist in [place], Dr. POLLOCK if needed. Patient does have mild pain today. No questions at discharge. Lab Data Labs: Lab Results 06/18/24 06/18/24 Range/Units 11:45 13:28 WBC 8.2 (4.0-11.0) 10^3/uL RBC 4.98 (4.20-5.40) 10^6/uL Hgb 14.7 (12.0-16.0) g/dL Hct 44.2 (36.0-48.0) % MCV 88.8 (81.0-99.0) fL MCH 29.5 (26.7-34.0) pg MCHC 33.3 (29.9-35.2) g/dL RDW 12.4 (11.0-15.0) % Plt Count 246 (150-450) 10^3/uL MPV 9.7 (9.5-13.5) fL Neut % (Auto) 46.9 (43.0-75.0) % Lymph % (Auto) 43.4 (20.5-60.0) % Knox % (Auto) 7.9 (1.7-12.0) % Eos % (Auto) 1.1 (0.9-7.0) % Baso % (Auto) 0.5 (0.2-2.0) % Neut # (Auto) 3.8 (1.4-6.5) 10^3/uL Lymph # (Auto) 3.6 (1.2-3.8) 10^3/uL Knox # (Auto) 0.7 (0.3-0.8) 10^3/uL Eos # (Auto) 0.1 (0.0-0.7) 10^3/uL Baso # (Auto) 0.0 (0.0-0.1) 10^3/uL Abs Immat Gran (auto) 0.02 (0.00-0.03) 10^3/uL Imm/Tot Granulo (auto) 0.2 (0.0-0.5) % Sodium 141 (136-145) mmol/L Potassium 4.0 (3.5-5.1) mmol/L Chloride 105 (98-107) mmol/L Carbon Dioxide 29.0 (21.0-32.0) mmol/L Anion Gap 11.0 BUN 8.0 (7.0-18.0) mg/dL Creatinine 0.80 (0.55-1.02) mg/dL Est GFR ( Amer) >60 (>=60 mL/min/1.73m^2) Est GFR (Non-Af Amer) >60 (>=60 mL/min/1.73m^2) BUN/Creatinine Ratio 10.0 Glucose 91 (74-106) mg/dL Calcium 9.2 (8.5-10.1) mg/dL Total Bilirubin 0.5 (0.2-1.0) mg/dL AST 15 (15-37) U/L ALT 10 L (14-59) U/L Alkaline Phosphatase 61 (46-116) U/L Total Protein 8.0 (6.4-8.2) g/dL Albumin 4.3 (3.4-5.0) g/dL Globulin 3.7 g/dL Albumin/Globulin Ratio 1.2 Lipase 30.0 (16.0-77.0) U/L Urine Color Lt. yellow (YELLOW) Urine Clarity Clear (CLEAR) Urine pH 7.0 (5.0-9.0) Ur Specific [place] 1.020 (1.005-1.025) Urine Protein Negative (NEG/TRACE) mg/dL Urine Glucose (UA) Negative (NEGATIVE) mg/dL Urine Ketones Negative (NEGATIVE) mg/dL Urine Occult Blood Large A (NEGATIVE) Urine Nitrite Negative (NEGATIVE) Urine Bilirubin Negative (NEGATIVE) Urine Urobilinogen 0.2 (0.2-1.0) EU/dL Ur Leukocyte Esterase Negative (NEGATIVE) Urine RBC 10-20 A (0-2) #/HPF Urine WBC None seen (NONE SEEN) #/HPF Ur Squamous Epith Cells Many A (NONE/RARE) #/LPF Urine Crystals None seen (None Seen) #/HPF Urine Bacteria Trace A (NONE SEEN) #/HPF Urine Casts None seen (NONE SEEN) #/LPF Urine Mucus Trace A (NONE SEEN) Ur Culture Indicated? No Discharge Plan Discharge Chief Complaint: Urogenital-Female Clinical Impression: Hematuria, Renal colic on right side Patient Disposition: Home, Self-Care Time of Disposition Decision: 14:38 Condition: Fair Prescriptions / Home Meds: New hydrocodone-acetaminophen 5-325 mg tablet 1 tab PO Q4H PRN (Reason: pain) Qty: 6 0RF ketorolac 10 mg tablet 10 mg PO Q8H PRN (Reason: pain) 1 Days Qty: 10 0RF tamsulosin [Flomax] 0.4 mg capsule 0.4 mg PO DAILY 7 Days Qty: 7 0RF ondansetron 4 mg tablet,disintegrating 4 mg PO Q4H PRN (Reason: nausea and vomiting) 3 Days Qty: 6 0RF No Action Briviact 50 mg tablet 100 mg PO Q12H clobazam 10 mg tablet 10 mg PO .qhs Nayzilam 5 mg/spray (0.1 mL) spray,non-aerosol 1 spray INTRANASAL PRN PRN (Reason: FOR SEIZURES) atomoxetine 40 mg capsule 40 mg PO DAILY Aimovig Autoinjector 140 mg/mL auto-injector 140 mg SUBCUT .every 28 days metoprolol succinate 25 mg tablet extended release 24 hr 25 mg PO DAILY midodrine 10 mg tablet 10 mg PO TID sumatriptan succinate 100 mg tablet 100 mg PO PRN (Reason: migraine headache) trazodone 100 mg tablet 100 mg PO .HS Ubrelvy 100 mg tablet 100 mg PO PRN (Reason: migraine headache) lamotrigine [Lamictal] 100 mg tablet 100 mg PO BID Print Language: Mongolian Instructions: Renal Colic (ED), Hematuria (ED) Additional Instructions: Increase fluids at home, water, cranberry juice. Use medication as needed, follow-up with your urologist in [place] as needed; Dr POLLOCK. A copy of your x-ray report has been given to you. Use nausea medicine of Zofran, Toradol, pain medication as needed. Follow-up with PCP. Referrals: KAVIN FRENCH [Primary Care Provider] - 1 week
[2024-06-18] MEDS: 0.9 % SODIUM CHLORIDE 500 ML IV (13:11)
[2024-06-18] MEDS: KETOROLAC TROMETHAMINE 30 MG/ML VIAL 15 MG IVP (13:12)
[2024-06-18 13:34] LABS: Basophils Percent Auto 0.5 % (0.2-2.0); Eosinophils Absolute Auto 0.1 10^3/uL (0.0-0.7); Eosinophils Percent Auto 1.1 % (0.9-7.0); Hematocrit 44.2 % (36.0-48.0); Hemoglobin 14.7 g/dL (12.0-16.0); Immature Granulocytes Abs Auto 0.02 10^3/uL (0.00-0.03); Immature Granulocytes Pct Auto 0.2 % (0.0-0.5); Lymphocytes Absolute Auto 3.6 10^3/uL (1.2-3.8); Lymphocytes Percent Auto 43.4 % (20.5-60.0); Mean Corpuscular HGB Conc 33.3 g/dL (29.9-35.2); Mean Corpuscular Hemoglobin 29.5 pg (26.7-34.0); Mean Corpuscular Volume 88.8 fL (81.0-99.0); Mean Platelet Volume 9.7 fL (9.5-13.5); Monocytes Absolute Auto 0.7 10^3/uL (0.3-0.8); Monocytes Percent Auto 7.9 % (1.7-12.0); Neutrophils Absolute Auto 3.8 10^3/uL (1.4-6.5); Neutrophils Percent Auto 46.9 % (43.0-75.0); Platelet Count 246 10^3/uL (150-450); Red Blood Count 4.98 10^6/uL (4.20-5.40); Red Cell Distribution Width 12.4 % (11.0-15.0); White Blood Count 8.2 10^3/uL (4.0-11.0)
[2024-06-18 13:49] LABS: Alanine Aminotransferase 10 U/L (14-59); Albumin Globulin Ratio 1.2; Albumin Level 4.3 g/dL (3.4-5.0); Alkaline Phosphatase 61 U/L (46-116); Aspartate Amino Transferase 15 U/L (15-37); Bilirubin Total 0.5 mg/dL (0.2-1.0); Calcium 9.2 mg/dL (8.5-10.1); Chloride 105 mmol/L (98-107); Estimated GFR (African America >60 (>=60 mL/min/1.73m^2); Estimated GFR (Non-African Ame >60 (>=60 mL/min/1.73m^2); Globulin 3.7 g/dL; Glucose 91 mg/dL (74-106); Sodium 141 mmol/L (136-145)
== END 2024-06-18 15:13 | disposition home or self-care (01) ==
PROVIDERS: Emergency Provider Emergency Medicine; PCP Family Medicine
DX: N23 Unspecified renal colic (principal); R31.9 Hematuria, unspecified; Z87.442 Personal history of urinary calculi; F17.200 Nicotine dependence, unspecified, uncomplicated
CPT/HCPCS: 36415; 74018; 80053; 81001; 83690; 85025; 96374; 99285; J1885

== ENCOUNTER 2024-07-07 22:09 | Emergency (ER) | payer OTHER, SELFPAY ==
[2024-07-07] VITALS (13 sets, daily range): BP systolic 91–105; BP diastolic 53–70; PULSE 73–90; TEMP 37.1; O2SAT 97–100; BMI 17.9
--- OUTSIDE RECORDS SUMMARY | 2024-07-07 22:22 | XMS_ITS | CCD ---
Author Organization [facility] Care Team Providers Care Casing Crew Pusher Name Role Phone ALEXA SAHA Admitting Unavailable DEBORAHEGALEXA CHUN Attending Unavailable HOUSE, ERIC Primary Care Unavailable SELF, REFERRED Referring Unavailable HOUSE, SR ERIC Boland Primary Care Unavailable JUANJOSE JIANG Attending Unavailabl e DION WHITE Attending Unavailable HOUSE, ERIC Boland Referring Unavailable HOUSE, ERIC Boland Primary Care Unavailable House, DO Eric Primary Care Provider [phone] DO Bobby Gallagher Emergency Provider Unavai DO Tommy Hernandez Emergency Provider [phone] DO Luz Fiore Emergency Provider [phone] DO Roberto Whittaker Emergency Provider DO Tommy Bowen Emergency Provider DO Eric French Primary Care Provider DO [place] Emergency Provider [phone] MD Mario Alberto Jose Emergency Provider DO Luz Fiore Emergency Provider [place] Eric Sams Primary Care Provider DO Tommy Bowen Emergency Provider DO Eric French Primary Care Provider DO [place] Emergency Provider [phone] MD Mario Alberto Jose Emergency Provider DO Luz Fiore Emergency Provider [phone] DO [place] Emergency Provider [phone] DO Eric French Primary Care Provider Leslie DO Attila Anderson Emergency Provider [phone] [place], DO Reyes Primary Care Provider [phone] Panfilo DO Roberto Espinosa Emergency Provider House, DO Reyes Primary Care Provider Nelson, DO Aiken J Emergency Provider Unavailab le Panfilo DO Mejia A Emergency Provider [phone] ZEYAD Bowen [facility] Federica E Emergency Provider HOUSE, DR REYES [...] OSULLIVAN Consulting Unavailable DERROW, COSMO Consulting Unavailable CORSICANA, DR REYES Primary Care Unavailable MARKER ., DR CASTRO Consulting Unavailable MARKER ., DR CASTRO Admdevang Unavailable MARKER ., DR CASTRO Attending Unavailable DEBBIE BRITT Consulting Unavailable ARVIND, NAHUN Consulting Unavailable GILLIAN, DR REYES Primary Care Unavailable SOPHIE ., COLTEN Admitting Unavailable SOPHEI ., COLTEN Attending Unavailable RADHA, DR MARGARITA Frankel Consulting Unavailable SOPHIE ., COLTEN Consulting Unavailable LO TUTTLE Consulting Unavailable [place] Sr., Eric BUCKLEY Primary Care Provider CORSICANA ERIC LYONS Primary Care Unavailable DAVIDSON ORTEZ Attending Unavailable [place], DO Reyes Primary Care Provider [phone] DO Luz Fiore Emergency Provider ZEYAD Rivera Emergency Provider [phone] [place], DO Reyes Primary Care Provider DO Luz iFore Emergency Provider [phone] ZEYAD Rivera Emergency Provider [phone] MD Mario Alberto Jose Emergency Provider NON STAFF Primary Care Provider Unavailabl e House DO, Eric P Primary Care Provider Gillian HUGGINS Eric P Primary Care Provider DEBBIE MCKEON Referring Unavailable HOUSE, ERIC P Primary Care Unavailable HOUSE SR, ERIC P Primary Care Unavailable EMILIA KHALEK, MOHAMED Referring Unavailabl e EMILIA KHALEK, MOHAMED Referring Unavailabl e HOUSE SR, ERIC P Primary Care Unavailable HOUSE SR, ERIC P Primary Care Unavailable AMAN TAPIA Attending Unavailable EMILIA KHALEK, ASAELAMED Referring Unavailabl e HOUSE SR, ERIC P Primary Care Unavailable EMILIA KHALEK, MOHAMED Referring Unavailabl e HOUSE SR, ERIC P Primary Care Unavailable Milton Rivera Attending Unavailable Milton Rivera Admitting Unavailable House, Eric Primary Care Unavailable Mario Alberto Jose Attending Unavailable Mario Alberto Jose Admitting Unavailable NON STAFF Primary Care Unavailable Luz Fiore Attending Unavailable Adebayo, Luz Admitting Unavailable House, Eric Primary Care Unavailable NON STAFF Primary Care Unavailable Luz Fiore Attending Unavailable Adebayo, Luz Admitting Unavailable ENRIQUETA TSE I Attending Unavailable HOUSE, ERIC P Referring Unavailable HOUSE, ERIC P Primary Care Unavailable HOUSE, ERIC P Referring Unavailable HOUSE, ERIC P Primary Care Unavailable DARYANETTE Grewal Attending Unavailable JESUS, ENRIQUETA Osorio Referring Unavailable HOUSE, ERIC P Primary Care Unavailable NETTE LACKEY Attending Unavailable HOUSE, ERIC P Referring Unavailable HOUSE, ERIC P Primary Care Unavailable GABRIEL-MELVIN, SARAH Attending Unavailable ENRIQUETA TSE I Referring Unavailable HOUSE, ERIC P Primary Care Unavailable MARLENAH-MELVIN, SARAH Attending Unavailable HOUSE, ERIC P Referring Unavailable HOUSE, ERIC P Primary Care Unavailable HOUSE, ERIC P Referring Unavailable HOUSE, ERIC P Primary Care Unavailable KREH-MELVIN, SARAH Attending Unavailable HOUSE, ERIC P Referring Unavailable HOUSE, ERIC P Primary Care Unavailable HOUSE, ERIC P Primary Care Unavailable NATALI, JAVIER Attending Unavailable NATALI, JAVIER Attending Unavailable NATALI, JAVIER Referring Unavailable HOUSE, ERIC P Primary Care Unavailable NATALI, JAVIER Attending Unavailable NATALI, JAVIER Referring Unavailable HOUSE, ERIC P Primary Care Unavailable SHAWNEE CHIRINOS Attending Unavailable CANDIS, SHAWNEE Goodrich Referring Unavailable HOUSE, ERIC P Primary Care [...] Primary Care Unavailable FRANCISCO FIGUEREDO Attending Unavailable SARAH RICE Referring Unavailable HOUSE, ERIC P Primary Care Unavailable HOUSE, ERIC P Primary Care Unavailable WILLIAMSON, DEBBIE Attending Unavailable WILLIAMSON, DEBBIE Attending Unavailable WILLIAMSON, DEBBIE Referring Unavailable HOUSE, ERIC P Primary Care Unavailable JESUS, ENRIQUETA I Referring Unavailable HOUSE, ERIC P Primary Care Unavailable JESUS, ENRIQUETA I Referring Unavailable HOUSE, ERIC P Primary Care Unavailable HOUSE, ERIC P Primary Care Unavailable GUERO TORRES Attending Unavailable House Sr., DO, Eric P Primary Care Provider CORSICANA SR, ERIC P Primary Care Unavailable GALE BASSETT Referring Unavailable Samson TECHNICIAN [employer], Lavonne Goodrich Unavailable CORSICANA SR, ERIC P Primary Care Unavailable GALE BASSETT Attending Unavailable GALE BASSETT Referring Unavailable HOUSE SR, ERIC P Primary Care Unavailable GLAE BASSETT Attending Unavailable HOUSE SR, ERIC P Primary Care Unavailable RITA, REA Referring Unavailable RITA, REA Referring Unavailable ISAIASAARON Admitting Unavailable ISAIAS, AARON Attending Unavailable RITA, REA Referring Unavailable ISAIAS, AARON Referring Unavailable ISAIAS, AARON Referring Unavailable ISAIAS, AARON Referring Unavailable ISAIAS, AARON Referring Unavailable TAMIRDEO Referring Unavailable NATALY, YOLIE Admitting Unavailable NTAALY, YOLIE Attending Unavailable RITA, REA Referring Unavailable ISAIAS, AARON Referring Unavailable ISAIAS, AARON Referring Unavailable MARISOL, SWAPNA Attending Unavailable ISAIAS, AARON Attending Unavailable MARISOL, SWAPNA Attending Unavailable RITA, REA Referring Unavailable ISAIAS, AARON Attending Unavailable ISAIAS, AARON Referring Unavailable ISAIAS, AARON Referring Unavailable ISAIAS, AARON Referring Unavailable RITA, REA Referring Unavailable House DO, Eric P Primary Care Provider HOUSE, ERIC P Primary Care Unavailable HOUSE, DO ERIC P Attending Unavailable HOUSE, ERIC P Primary Care Unavailable HOUSE, DO ERIC P Attending Unavailable HOUSE, ERIC P Primary Care Unavailable HOUSE, DO ERIC P Attending Unavailable HOUSE, DO ERIC P Admitting Unavailable HOUSE, ERIC P Primary Care Unavailable HOUSE, DO ERIC P Attending Unavailable HOUSE, ERIC P Primary Care Unavailable HOUSE, DO ERIC P Attending Unavailable NIKO, ÁNGEL Admitting Unavailable NIKO, ÁNGEL Attending Unavailable DAVID RASMUSSEN Referring Unavailable HOUSE, ERIC P Primary Care Unavailable SHAWNEE CHIRINOS Referring Unavailable HOUSE, ERIC P Primary Care Unavailable PROLOGO-JUÁREZ, LINSEY Referring Unavai lable HOUSE, ERIC P Primary Care Unavailable PROLOGO-JUÁREZ, LINSEY Referring Unavai lable HOUSE, ERIC P Primary Care Unavailable PROLOGO-JUÁREZ, LINSEY Referring Unavai lable HOUSE, ERIC P Primary Care Unavailable HASCONG, ROSALINE Referring Unavailable HOUSE, ERIC P Primary Care Unavailable ENRIQUETA TSE I Referring Unavailable HOUSE, ERIC P Primary Care Unavailable SARAH RICE Referring Unavailable HOUSE, ERIC P Primary Care Unavailable DEBBIE MCKEON Admitting Unavailable DEBBIE MCKEON Attending Unavailable FUMDEBBIE Dominique Referring Unavailable HOUSE, ERIC P Primary Care Unavailable DEBBIE MCKEON Attending Unavailable DEBBIE MCKEON Referring Unavailable HOUSE, ERIC P Primary Care Unavailable BEATA DODSON Admitting Unavailable BEATA DODSON Attending Unavailable AUDREY HOPPER Referring Unavailable HOUSE, ERIC P Primary Care Unavailable TEJ LIZARRAGA Consulting Unavailable JUDE PARRA Referring Unavailable HOUSE, ERIC P Primary Care Unavailable DEBBIE MCKEON Attending Unavailable HOUSE, ERIC P Referring Unavailable HOUSE, ERIC P Primary Care Unavailable HOUSE, ERIC P Referring Unavailable HOUSE, ERIC P Primary Care Unavailable Allergies Allergy Classification Reported Allergen(s) Allergy Type Date of Onset Reaction(s) Facility (20 sources) Codeine; Translations: [CODEINE] Drug Allergy 8 Hives [facility] Repository (20 sources) Codeine Drug Allergy 8 Hives, Itching [facility] Work Phone: (1 source) Codeine Drug Allergy 3 [facility] Repository Medications Current Medications Medication Drug Class(es) Dates Sig (Normalized) Sig (Original) atomoxetine 40 mg oral capsule (10 sources) Norepinephrine Reuptake Inhibitor Start: 01-28-2024 End: 05-21-2024 take 1 capsule by mouth once daily atomoxetine (STRATTERA) 40 mg capsule Take 40 mg by mouth once daily. 01/28/2024 Active take 1 capsule by mouth in the m orning atomoxetine (STRATTERA) 25 mg capsule Take 1 capsule (25 mg total) by mouth in the morning. 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 0 Active brivaracetam 100 mg oral tablet (20 sources) Start: 06-12-2024 take 1 tablet by mouth twice daily at bedtime Briviact 100 MG tablet tablet Indications: Intractable complex partial epilepsy (CMS/HCC) , Focal epilepsy with impairment of consciousness, intractable (CMS/HCC) , Epilepsy, 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CMS/HCC) TAKE 1 TABLET BY MOUTH TWICE DAILY (IN THE MORNING and BEFORE bedtime) 60 tablet 2 06/12/2024 Active Start: 03-20-2024 take 1 tablet by ketan th twice daily at bedtime Briviact 100 MG tablet tablet Indications: Intractable complex partial epilepsy (CMS/HCC) , Focal epilepsy with impairment of consciousness, intractable (CMS/HCC) , Epilepsy, 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CMS/HCC) TAKE 1 TABLET BY MOUTH TWICE DAILY (IN THE MORNING and BEFORE bedtime) 60 tablet 2 03/20/2024 Active Start: 11-28-2023 End: 06-12-2024 take 1 tablet by mouth twice daily at bedtime Briviact 100 MG tablet tablet Indications: Intractable complex partial epilepsy (CMS/HCC) , Focal epilepsy with impairment of consciousness, intractable (CMS/HCC) , Epilepsy, 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CMS/HCC) TAKE 1 TABLET BY MOUTH TWICE DAILY (IN THE MORNING and BEFORE bedtime) 60 tablet 2 06/12/2024 Active Start: 08-23-2023 take 1 tablet by ketan th once daily brivaracetam (BRIVIACT) 100 mg tablet Take 100 mg by mouth once daily. 08/23/2023 Active Start: 05-16-2023 End: 05-15-2024 take 1 tablet [...] 30 days 30 tablet 2 05/24/2023 Active ciclopirox 10 mg/ml medicated shampoo (20 sources) Start: 10-11-2023 Ciclopirox 1 % shampoo Indications: Other seborrheic dermatitis Lather on wet hair, leave on 5 min, rinse 2-3 x week, 30 day supply 120 mL 11 10/11/2023 Active Start: 09-04-2023 ciclopirox (LO PROX) 1 % shampoo Apply 1 Application topically 2 (two) times a week. 09/04/2023 Active Start: 05-24-2023 Ciclopirox 1 % shampoo Indications: Other seborrheic dermatitis Lather on wet hair, leave on 5 min, rinse 2-3 x week, 30 day supply 120 mL 11 05/24/2023 Active clindamycin 10 mg/ml topical lotion (20 sources) Lincosamide Antibacterial Start: 10-11-2023 clindamycin (Cleocin T) 1 % lotion Indications: Acne vulgaris Apply to face and back once daily/ 30 day supply 60 mL 11 10/11/2023 Active Start: 05-24-2023 clindamycin (C leocin T) 1 % lotion Indications: Acne vulgaris Apply thin layer to face, once daily in the morning, 30 day supply 60 mL 2 05/24/2023 Active cloBAZam 10 mg oral tablet (20 sources) Benzodiazepine Start: 04-06-2023 End: 05-21-2024 take 1 tablet by mouth at bedtime cloBAZam (Onfi) 10 MG tablet Indications: Intractable complex partial epilepsy (CMS/HCC) Take 1 tablet (10 mg) by mouth at bedtime 30 tablet 2 05/21/2024 Active Start: 04-06-2023 End: 08-10-2023 take 5 mg [...] bedtime. 45 tablet 3 04/14/2023 08/10/2023 Discontinued dexamethasone 2 mg oral tablet (2 sources) Corticosteroid Start: 06-12-2024 End: 06-22-2024 take 1 tablet by mouth in the morning dexAMETHasone (Decadron) 2 MG tablet Indications: Intractable chronic migraine without aura and without status migrainosus (CMS/HCC) Take 1 tablet (2 mg) by mouth in the morning and 1 tablet (2 mg) in the evening. Take with meals. Do all this for 10 days. 20 tablet 06/13/2024 Active 24 hr dexmethylphenidate hydrochloride 5 mg extended release oral capsule (9 sources) Central Nervous System Stimulant Start: 05-21-2024 End: 08-02-2024 take 1 capsule by mouth once daily dexmethylphenidate XR (Focalin XR) 5 MG 24 hr capsule Indications: ADD (attention deficit disorder) without hyperactivity Take 1 capsule (5 mg) by mouth Daily Do not crush, chew, or split. 30 capsule 07/03/2024 08/02/2024 Active docusate sodium 100 mg oral capsule (6 sources) Start: 12-12-2023 End: 03-11-2024 take 1 capsule by mouth once daily docusate sodium (Colace) 100 MG capsule Indications: Constipation, unspecified constipation type Take 1 capsule (100 mg) by mouth Daily 90 capsule 12/12/2023 03/11/2024 Active Start: 11-24-2021 take 1 capsule by mo uth in the morning, then take 1 capsule by mouth at bedtime docusate sodium (COLACE) 100 mg capsule Take 1 capsule (100 mg total) by mouth in the morning and 1 capsule (100 mg total) before bedtime. 14 capsule 0 11/24/2021 Active docusate sodium 50 mg / sennosides, longterm 8.6 mg oral tablet (20 sources) Start: 12-07-2023 take 8.6-50 mg by mouth once daily Senokot S 8.6-50 MG tablet Take 2 tablets by mouth Daily 12/07/2023 Active doxycycline monohydrate 50 mg oral capsule (10 sources) Tetracycline-class Drug Start: 05-03-2024 take 1 capsule by mouth once daily doxycycline (Monodox) 50 MG capsule Indications: Acne vulgaris Take 1 capsule, by mouth, once daily, 30 days 30 capsule 3 05/03/2024 Active 1 ml erenumab-aooe 140 mg/ml auto-injector (16 sources) Start: 11-17-2023 End: 11-16-2024 inject 140 mg by subcutaneous injection every month erenumab-aooe 140 mg/mL subcutaneous auto-injector (AIMOVIG) Inject 140 mg subcutaneously once every month. 01/28/2024 Active flecainide acetate 100 mg oral tablet (20 sources) Antiarrhythmic Start: 02-07-2024 End: 02-06-2025 take 1 tablet by mouth in the morning flecainide (Tambocor) 100 MG tablet Take 100 mg by mouth in the morning and 100 mg in the evening. 02/07/2024 02/06/2025 Active 1.5 ml fremanezumab-vfr m 150 mg/ml prefilled syringe (9 sources) Start: 05-22-2024 fremanezumab (Ajovy) prefilled syringe 225 mg ibuprofen 600 mg oral tablet (20 sources) Nonsteroidal Anti-inflammatory Drug Start: 09-20-2023 take 1 tablet by mouth every six hours as needed ibuprofen 600 MG tablet Take 600 mg by mouth every 6 (six) hours if needed 09/20/2023 Active Start: 05-12-2023 take 800 mg by mouth three times daily Ibuprofen Active 800 MG PO Three times daily May 12, 2023 1:00am ketorolac tromethamine 10 mg oral tablet (9 sources) Nonsteroidal Anti-inflammatory Drug, Cyclooxygenase Inhibitor Start: 11-13-2021 keTORolac (TORADOL) 10 mg tablet Take by mouth every 6 hours as needed. 11/13/2021 Active lamoTRIgine 200 mg oral tablet (20 sources) Mood Stabilizer, Anti-epileptic Agent Start: 01-30-2024 End: 02-29-2024 take 1 tablet by mouth in the morning lamoTRIgine (LaMICtal) 200 MG tablet Indications: Seizure disorder (CMS/HCC) Take 1 tablet (200 mg) by mouth in the morning and 1 tablet (200 mg) before bedtime. 60 tablet 11 01/30/2024 Active Start: 03-23-2023 End: 04-05-2024 take 1 tablet by mouth twice daily Lamotrigine (Lamictal) 100 mg tablet Active 100 MG PO Twice daily March 23, 2023 12:00am Start: 07-27-2022 End: 05-12-2023 take 4 tablets by mouth twice daily Lamotrigine (Lamictal) 25 mg Tablet Discontinued 100 MG PO Twice daily July 27, 2022 1:00am May 12, 2023 2:30pm Start: 07-27-2022 take 4 tablets by mo [facility] once daily in the morning Lamotrigine (Lamictal) 25 mg Tablet Active 100 MG PO Every morning July 27, 2022 1:00am Start: 07-27-2022 take 1 tablet by ketan th four times daily Lamotrigine (Lamictal) 25 mg Tablet Active 25 MG PO Four times daily July 27, 2022 12:00am Start: 07-27-2022 take 1 tablet by ketan th once daily Lamotrigine (Lamictal) 25 mg Tablet Active 25 MG PO Daily July 27, 2022 12:00am Start: 01-02-2021 End: 02-25-2022 take 1 tablet by mouth once daily at bedtime Lamotrigine (Lamictal) 100 mg tablet Discontinued 100 MG PO Daily at bedtime June 02, 2021 12:46pm February 25, 2022 11:47am take 1.5 tablets by mouth in the morning, then take 1.5 tablets by mouth at bedtime lamoTRIgine (LaMICtal) 100 mg tablet Take 1.5 tablets (150 mg total) by mouth in the morning and 1.5 tablets (150 mg total) before bedtime. Active Comment on above: Take 100 mg by mouth twice daily. LORazepam 1 mg oral tablet (7 sources) Benzodiazepine Start: 09-17-19 take 1 tablet by mouth every twelve hours LORazepam (ATIVAN) 1 mg tablet Take 1 mg by mouth q 12 HR. 09/16/2020 Active Comment on above: Take 1 mg by mouth q 12 HR. 24 hr metFORMIN hydrochloride 500 mg extended release oral tablet (20 sources) Biguanide Start: 04-16-20 take 1 tablet by mouth every twenty-four hours in the morning metFORMIN XR (Glucophage-XR) 500 MG 24 hr tablet Take 500 mg by mouth in the morning and 500 mg in the evening. Take with meals. 04/16/2024 Active Start: 04-16-2024 End: 07-15-2024 take 1 tablet by mouth twice daily at mealtime metFORMIN ER (GLUCOPHAGE XR) 500 mg 24 hr tablet Indications: Other specified diabetes mellitus with other specified complication, without long-term current use of insulin (HCC) Take 1 tablet by mouth two times a day with meals. 180 tablet 04/16/2024 06/22/2024 Discontinued (Clinical Decision) Start: 08-18-2022 End: 09-13-2022 take 500 mg by mouth twice daily Metformin Discontinued 500 MG PO Twice daily August 18, 2022 1:00am September 13, 2022 10:46am Start: 05-29-2021 End: 05-18-2022 take 500 mg by mouth twice daily Metformin Discontinued 500 MG PO Twice daily May 29, 2021 1:00am May 18, 2022 12:06pm metoclopramide 10 mg oral tablet (3 sources) Dopamine-2 Receptor Antagonist Start: 10-16-2021 take 1 tablet by mouth every eight hours as needed metoclopramide (REGLAN) 10 mg tablet Take 10 mg by mouth every 8 (eight) hours as needed. 0 10/16/2021 Active 24 hr metoprolol succinate 25 mg extended release oral tablet (20 sources) beta-Adrenergic Eleonora Start: 11-16-2023 take 1 tablet by mouth once daily metoprolol succinate XL (Toprol-XL) 25 MG 24 hr tablet Take 12.5 mg by mouth Daily 11/16/2023 Active Start: 11-16-2023 take 1 tablet by ketan th every twenty-four hours in the morning metoprolol succinate XL (TOPROL XL) 25 mg 24 hr tablet Take 1 tablet (25 mg total) by mouth in the morning. 11/16/2023 Active metoprolol succi baylee ER (TOPROL XL) 100 mg Take by mouth. Active metoprolol tartr ate, short acting, (LOPRESSOR) 25 mg tablet TAKE 1/2 (ONE-HALF) OF A TABLET BY MOUTH TWICE DAILY DIRECTED for 30 days Active Comment on above: Take by mouth. midazolam 50 mg/ml nasal spray (20 sources) Benzodiazepine Start: 08-10-2023 Midazolam (Nayzilam) 5 MG/0.1ML solution Indications: Intractable complex partial epilepsy (CMS/HCC) Administer 1 spray into affected nostril(s) if needed (1 spray 5 mg in one nostril x1 may repeat in opposite nostril in 10 min) 6 each 2 08/10/2023 Active Start: 02-06-2023 midazolam (NAY ZILAM) 5 mg/spray (0.1 mL) spray,non-aerosol Administer 5 mg into each nostril as needed (seizure activity). 02/06/2023 Active Start: 02-06-2023 take 5 mg nasal rout e every twenty-four hours as needed midazolam (NAYZILAM) 5 mg/spray (0.1 mL) nasal spray Use 5 mg in the nose at bedtime as needed. 02/06/2023 Active Start: 02-06-2023 Midazolam (NAY ZILAM) 5 MG/0.1ML SOLN Indications: Seizure (HCC) 5 mg by Nasal route 1 (one) time if needed (for seizure. May repeat x1 if no response after 10 minutes.) Max Daily Amount: 5 mg 2 each 0 02/06/2023 Active Midazolam (Nayzilam) 5 mg/sp ray (0.1 mL) spray,non-aerosol (3 sources) Start: 03-11-2023 Midazolam (Nay zilam) 5 mg/spray (0.1 mL) spray,non-aerosol Active 1 SPRAY INTRANASAL As Directed March 10, 2023 11:00pm Start: 03-11-2023 Midazolam (Nay zilam) 5 mg/spray (0.1 mL) spray,non-aerosol Active 1 SPRAY INTRANASAL As Directed March 11, 2023 12:00am midodrine hydrochloride 5 mg oral tablet (20 sources) alpha-Adrenergic Agonist Start: 03-11-2023 take 1 tablet by mouth in the morning, then take 1 tablet by mouth in the evening, then take 1 tablet by mouth at bedtime midodrine (Proamatine) 5 MG tablet Take 5 mg by mouth in the morning and 5 mg in the evening and 5 mg before bedtime. 06/09/2023 Active 24 hr mirabegron 50 mg extended release oral tablet (1 source) beta3-Adrenergic Agonist Start: 06-29-2024 take 1 tablet by mouth every twenty-four hours in the morning mirabegron (MYRBETRIQ) 50 mg tablet extended release 24 hr Take 1 tablet (50 mg total) by mouth in the morning. 90 tablet 3 06/29/2024 Active montelukast 10 mg oral tablet (15 sources) Leukotriene Receptor Antagonist Start: 09-27-2023 take 1 tablet by mouth at bedtime montelukast (Singulair) 10 MG tablet Take 10 mg by mouth at bedtime 09/27/2023 Active naproxen 500 mg oral tablet (17 sources) Nonsteroidal Anti-inflammatory Drug Start: 11-15-2023 take 1 tablet by mouth three times daily as needed naproxen (Naprosyn) 500 MG tablet Take 500 mg by mouth 3 (three) times a day as needed 11/15/2023 Active ondansetron 4 mg disintegrating oral tablet (20 sources) Serotonin-3 Receptor Antagonist Start: 12-07-2023 take 1 tablet by mouth every eight hours as needed for nausea ondansetron ODT (Zofran-ODT) 4 MG disintegrating tablet Take 4 mg by mouth every 8 (eight) hours if needed for nausea 12/07/2023 Active Start: 12-07-2023 take 1 tablet by ketan th every eight hours as needed ondansetron orally disintegrating (ZOFRAN ODT) 4 mg disintegrating tablet Take 4 mg by mouth three times a day as needed. 12/07/2023 Active Start: 12-01-2023 End: 12-01-2023 ondansetron (ZOFRAN) injecti on 4 mg Start: 09-27-2023 End: 05-21-2024 take 1 tablet by mouth once daily as needed for nausea ondansetron (ZOFRAN) 4 mg tablet Take 1 tablet (4 mg total) by mouth daily as needed for nausea or vomiting. 30 tablet 1 09/27/2023 Active Start: 10-13-2021 End: 09-19-2023 take 4 mg by mouth every eight hours Ondansetron Active 4 MG PO Q8H May 12, 2023 1:00am phenytoin sodium 100 mg extended release oral capsule (10 sources) Anti-epileptic Agent Start: 11-03-2020 take 3 capsules by mouth once daily phenytoin ER (DILANTIN) 100 mg ER capsule Take 300 mg by mouth once daily. 11/03/2020 Active phenytoin (NITIN TIN) 100 mg ER capsule Comment on above: Take 300 mg by mouth once daily. Sennosides (Senna Lax) 8.6 mg tablet (1 source) Start: 04-02-2024 take 2 tablets by mouth twice daily Sennosides (Senna Lax) 8.6 mg tablet Active 17.2 MG PO Twice daily 120 April 02, 2024 12:00am sennosides, longterm 8.6 mg oral tablet (8 sources) Start: 04-02-2024 take 2 tablets by mouth in the morning Senna-Time 8.6 MG tablet Take 2 tablets by mouth in the morning and 2 tablets before bedtime. 04/02/2024 Active sertraline 50 mg oral tablet (20 sources) Serotonin Reuptake Inhibitor Start: 12-07-2023 take 1 tablet by mouth once daily sertraline (Zoloft) 50 MG tablet Take 50 mg by mouth Daily 12/07/2023 Active Start: 12-04-2019 End: 12-04-2019 Sertraline (Zoloft) 25 mg Ta blet Discontinued MG TABLET December 04, 2019 12:00am December 04, 2019 3:36pm Start: 12-04-2019 End: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 difficulties [G47.9] 08/31/2018 Encounter Status:Closed by KARO SLATER on 06/18/24 [facility] 05-18-2024 [facility] ([facility]) ----- BHAVNA KOVACS ([id number]) 2 F Date Time Provider Department 05/18/24 GALE BASSETT [facility] During your visit today, we recorded the following information about you: Jaqueline Coronado, NATHANIEL 05/18/2024 2:18 PM Signed Pt calls Seen 04-16-2024 Ov notes reviewed Asking if provider would like pt to stay on dexcom 7 He has applied the last disk to his arm Pharm on dial Ddm/ dandre [place] Pedro Sanford MA 05/18/2024 3:36 PM Signed Full Dexcom report printed and placed on providers desk for review. Gale Bassett APRN.[facility] 05/18/2024 4:24 PM Signed Please discontinue metformin and come in for 2 more sensors - to see how you do off of the medication Pedro Sanford MA 05/18/2024 4:35 PM Signed Called and informed pt of below message. 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 Pedro Sanford MA Allergies As of Date: 05/18/2024 Noted Allergy Reaction CODEINE 07/17/2017 4 - Hives 9 - Itching Date Reviewed: 04/16/2024 Reviewed by: Pedro Sanford MA - Fully Assessed Reason for Visit: Question [1327] dexcom 7 [Other] Prescriptions as of 05/18/2024 - erenumab-aooe 140 mg/mL subcutaneous auto-injector (AIMOVIG) Inject 140 mg subcutaneously once every month. - atomoxetine (STRATTERA) 40 mg capsule Take 40 mg by mouth once daily. - brivaracetam (BRIVIACT) 100 mg tablet Take 100 mg by mouth once daily. - Ciclopirox 1 % sham lather on wet hair, leave on for 5 (FIVE) minutes, then rinse 2-3 times a week FOR 30 DAYS - Clindamycin Phosphate (CLEOCIN T) 1 % lotion Apply to face and back once daily/ 30 day supply - cloBAZam (ONFI) 10 mg tab tablet Take 10 mg by mouth once daily. - flecainide (TAMBOCOR) 100 mg tablet Take 1 tablet by mouth every 12 hours. - keTORolac (TORADOL) 10 mg tablet Take by mouth every 6 hours as needed. - metoprolol tartrate, short acting, (LOPRESSOR) 25 mg tablet TAKE 1/2 (ONE-HALF) OF A TABLET BY MOUTH TWICE DAILY DIRECTED for 30 days - midazolam (NAYZILAM) 5 mg/spray (0.1 mL) nasal spray Use 5 mg in the nose at bedtime as needed. - ondansetron orally disintegrating (ZOFRAN ODT) 4 mg disintegrating tablet Take 4 mg by mouth three times a day as needed. - senna-docusate (SENOKOT-S) 8.6-50 mg per tablet Take 2 tablets by mouth once daily. - sertraline (ZOLOFT) 25 mg tablet Take 25 mg by mouth. - sertraline (ZOLOFT) 50 mg tablet Take 50 mg by mouth. - Sulfacetamide Sodium, Acne, 10 % susp Apply thin layer to face once daily, 30 day supply. - tiZANidine (ZANAFLEX) 2 mg tablet Take 2 mg by mouth three times a day as needed. - traZODone (DESYREL) 100 mg tablet Take 100 mg by mouth. - ubrogepant (UBRELVY) 100 mg tablet Take 1 tablet by mouth. - metFORMIN ER (GLUCOPHAGE XR) 500 mg 24 hr tablet Take 1 tablet by mouth two times a day with meals. - lamoTRIgine (LAMICTAL) 25 mg tablet Take [...] For use with testosterone administration SQ Q2wks Problem List As Of Date 05/18/2024 Noted Resolved Social anxiety disorder [F40.10] 09/04/2018 [...] Sleep difficulties [G47.9] 08/31/2018 Encounter Status:Closed by PEDRO SANFORD on 05/18/[address] [facility] 25-hydroxyvitamin D3 [Mass/Vol] 23.8 ng/mL Low 31.0-80.[address] [facility] Comment on above: Order Comment: Janet white Type: BLOOD SPECIMEN Ordering Facility: [facility] Address: [address] [place] [address] Result Comment: Clas sification of 25 [place] Vitamin D status: Deficiency/Insufficiency: < or = 30 ng/ml. Sufficiency/Optimal Levels: 31-80 ng/mL Toxicity: > 100 ng/mL. Test performed by chemiluminescent immunoassay. Performed By: #### 1 986-9 #### [facility] CLIA [id number] [address] [place] [address] [place] ALBUMIN/CREATININE RATIO, UR INEon 05-11-2024 Albumin DL <= 20 mg/L (U) [Mass/Vol] mg/dL Normal [facility] Comment on above: Order Comment: Janet white Type: URINE SPECIMEN Ordering Facility: [facility] Address: [address] [place] [address] Performed By: #### U ACR #### [facility] CLIA [id number] [address] [place] [address] [place] Albumin/Creatinine (U) [Mass ratio] <13 Normal <[address] [facility] Comment on above: Order Comment: Janet white Type: URINE SPECIMEN Ordering Facility: [facility] Address: [address] [place] [address] Result Comment: Adul t Male and Female Nephrotic Criteria: <30 mg/g is considered normal to mildly increased 30-300 mg/g is considered moderately increased >300 mg/g is considered severely increased KDIGO. (2013). KDIGO 2012 Clinical Practice Guideline for the Evaluation and Management of Chronic Kidney Disease. Official Journal of the International Society of Nephrology, 3(1), 1-150. Performed By: #### U ACR #### [facility] CLIA [id number] [address] [place] [address] [place] Creatinine (U) [Mass/Vol] 94.6 mg/dL Normal 20.0-300.[address] [facility] Comment on above: Order Comment: Janet white Type: URINE SPECIMEN Ordering Facility: [facility] Address: [address] [place] [address] Performed By: #### U ACR #### [facility] [place] [id number] [address] [place] [address] [place] C peptide SerPl-mCncon 05-11 C peptide [Mass/Vol] 1.7 ng/mL Normal 1.1-4.4 [facility] Comment on above: Order Comment: Janet white Type: BLOOD SPECIMEN Ordering Facility: [facility] Address: [address] [place] [address] Performed By: #### 1 986-9 #### [facility] [id number] [address] [place] [address] [place] GAD65 Ab Ser-aCncon 05-11-20 24 Glutamate decarboxylase 65 Ab Qn (S) <5.0 Normal <=5.[address] [facility] Comment on above: Order Comment: Janet white Type: BLOOD SPECIMEN Ordering Facility: [facility] Address: [address] [place] [address] Result Comment: Anti -glutamic acid decarboxylase antibody (GAD65) test usually in conjunction with another test such as IA-2 antibody is used as an aid in establishing the autoimmune nature of previously-diagnosed type I diabetes mellitus or in predicting of progression to type I diabetes mellitus in patients with certain autoimmune diseases including autoimmune gastritis among others. It is also used as an aid in diagnosis of stiff person syndrome and certain autoimmune nervous system diseases. Clinical correlation is required. Performed By: #### 1 3926-1 #### [facility] [place] [id number] [address] [place] [address] [place] Glucose p fast SerPl-mCncon 05-11-2024 Glucose post fast [Mass/Vol] 78 mg/dL Normal 74-[address] [facility] Comment on above: Order Comment: Janet white Type: BLOOD SPECIMEN Ordering Facility: [facility] Address: [address] [place] [address] Result Comment: [place] Diabetes Association guidelines state that a diabetes mellitus diagnosis is preliminarily made when the fasting plasma glucose meets or exceeds 126 mg/dL. In the absence of unequivocal hyperglycemia, results should be confirmed with repeat testing. Patients are at increased risk for diabetes mellitus (prediabetes) when the fasting glucose is 100 to 125 mg/dL. Performed By: #### 1 986-9 #### [facility] CLIA [id number] [address] [place] [address] [place] Glutamate decarboxylase 65 A b Qn (S)on 05-11-2024 GLUTAMIC ACID DECARBOXYLAS AB QUALITATIVE Negative Normal Negative [facility] Comment on above: Order Comment: Speci men Type: BLOOD SPECIMEN Ordering Facility: [facility] Address: [address] [place] [address] Performed By: #### 1 3926-1 #### [facility] CLIA [id number] [address] [place] [address] [place] Insulin SerPl-aCncon 024 Insulin Qn 3.3 u[IU]/mL Normal 3.0-25.[address] [facility] Comment on above: Order Comment: Speci men Type: BLOOD SPECIMEN Ordering Facility: [facility] Address: [address] [place] [address] Performed By: #### 2 0448-7 #### [facility] IA [id number] [address] [place] [address] [place] PTH-Intact SerPl-ncon 04-27 Parathyrin.intact [Mass/Vol] 21 pg/mL Normal [facility] Comment on above: Order Comment: Speci men Type: BLOOD SPECIMEN Ordering Facility: [facility] Address: [address] [place] [address] Performed By: #### 1 986-9 #### [facility] CLIA [id number] [address] [place] [address] [place] Renal function 2000 panelon 05-11-2024 Albumin [Mass/Vol] 4.6 g/dL Normal 3.9-4.9 [facility] Comment on above: Order Comment: Speci men Type: BLOOD SPECIMEN Ordering Facility: [facility] Address: [address] [place] [address] Performed By: #### 1 986-9 #### [facility] CLIA [id number] [address] [place] [address] [place] Anion gap [Moles/Vol] 10 mmol/L Normal 8-15 [facility] Comment on above: Order Comment: Speci men Type: BLOOD SPECIMEN Ordering Facility: [facility] Address: [address] [place] [address] Performed By: #### 1 986-9 #### [facility] CLIA [id number] [address] [place] [address] [place] Calcium [Mass/Vol] 9.6 mg/dL Normal 8.5-10.2 [facility] Comment on above: Order Comment: Speci men Type: BLOOD SPECIMEN Ordering Facility: [facility] Address: [address] [place] [address] Performed By: #### 1 986-9 #### [facility] CLIA [id number] [address] [place] [address] [place] Chloride [Moles/Vol] 101 mmol/L Normal 98-107 [facility] Comment on above: Order Comment: Speci men Type: BLOOD SPECIMEN Ordering Facility: [facility] Address: [address] [place] [address] Performed By: #### 1 986-9 #### [facility] CLIA [id number] [address] [place] [address] [place] CO2 [Moles/Vol] 21 mmol/L Low 22-[address] [facility] Comment on above: Order Comment: Speci men Type: BLOOD SPECIMEN Ordering Facility: [facility] Address: [address] [place] [address] Performed By: #### 1 986-9 #### [facility] CLIA [id number] [facility] [place] [address] [place] Creatinine [Mass/Vol] 0.75 mg/dL Normal 0.73-1.22 [facility] Comment on above: Order Comment: Janet white Type: BLOOD SPECIMEN Ordering Facility: [facility] Address: [address] [place] [address] Performed By: #### 1 986-9 #### [facility] CLIA [id number] [address] [place] [address] [place] Creatinine and Glomerular filtration rate.predicted panel (S/P/Bld) 116 mL/min/1.73m??? Normal >=[address] [facility] Comment on above: Order Comment: Janet white Type: BLOOD SPECIMEN Ordering Facility: [facility] Address: [address] [place] [address] Result Comment: Carla mated Glomerular Filtration Rate (eGFR) is calculated using the 2020 CKD-EPI creatinine equation. This equation utilizes serum creatinine, sex, and age as parameters. The creatinine assay has traceable calibration to isotope dilution-mass spectrometry. Refer to KDIGO guidelines for clinical interpretation. In patients with unstable renal function, e.g. those with acute kidney injury, the eGFR may not accurately reflect actual GFR. Performed By: #### 1 986-9 #### [facility] CLIA [id number] [address] [place] [address] [place] Glucose [Mass/Vol] 86 mg/dL Normal 74-99 [facility] Comment on above: Order Comment: Janet white Type: BLOOD SPECIMEN Ordering Facility: [facility] Address: [address] [place] [address] Result Comment: The [place] Diabetes Association (ADA) provides guidance for cutoff [...] Standards of Medical Care in Diabetes 2016, [place] Diabetes Association. Diabetes Care. 2016.39(Suppl 1). Performed By: #### 1 986-9 #### [facility] CLIA [id number] [address] [place] [address] [place] Phosphate [Mass/Vol] 4.2 mg/dL Normal [facility] Comment on above: Order Comment: Speci men Type: BLOOD SPECIMEN Ordering Facility: [facility] Address: [address] [place] [address] Performed By: #### 1 986-9 #### [facility] CLIA [id number] [address] [place] [address] [place] Potassium [Moles/Vol] 4.4 mmol/L Normal 3.7-5.1 [facility] Comment on above: Order Comment: Speci men Type: BLOOD SPECIMEN Ordering Facility: [facility] Address: [address] [place] [address] Performed By: #### 1 986-9 #### [facility] CLIA [id number] [address] [place] [address] [place] Sodium [Moles/Vol] 132 mmol/L Low 136-144 [facility] Comment on above: Order Comment: Speci men Type: BLOOD SPECIMEN Ordering Facility: [facility] Address: [address] [place] [address] Performed By: #### 1 986-9 #### [facility] CLIA [id number] [address] [place] [address] [place] Urea nitrogen [Mass/Vol] 12 mg/dL Normal 7-[address] [facility] Comment on above: Order Comment: Speci men Type: BLOOD SPECIMEN Ordering Facility: [facility] Address: [address] [place] [address] Performed By: #### 1 986-9 #### [facility] CLIA [id number] [address] [place] [address] [place] TSH SerPl-aCncon 05-11-2024 TSH Qn 0.652 m[IU]/L Normal 0.270-4.[address] [facility] Comment on above: Order Comment: Speci men Type: BLOOD SPECIMEN Ordering Facility: [facility] Address: [address] [place] [address] Performed By: #### 1 986-9 #### [facility] CLIA [id number] [address] [place] [address] [place] Vit B12 SerPl-mCncon 024 Cobalamin (Vitamin B12) [Mass/Vol] 314 pg/mL Normal 232-[address] [facility] Comment on above: Order Comment: Graciai men Type: BLOOD SPECIMEN Ordering Facility: [facility] Address: [address] [place] [address] Performed By: #### 1 986-9 #### [facility] CLIA [id number] [address] [place] [address] [place] CNOVon 04-16-2024 CNOV Office Visit (ENDOCC ) ----- BHAVNA KOVACS ([id number]) 2 F Date Time Provider Department 04/16/24 3:00 PM GALE BASSETT [facility] During your visit today, we recorded the following information about you: Pulse Blood pressure Weight Height 83/minute 120/78 43.2 kg 1.575 m Gale Bassett, CERTIFIED PERSONAL TRAINER.[employer] SUPERVISOR 04/16/2024 4:59 PM Signed Endocrinology Initial Diabetes Assessment Bhavna Kovacs is here for a consultation regarding: Diabetes My final recommendations will be communicated back to the requesting physician by way of shared Medical record or letter to requesting physician via [place] mail. PCP is Eric French Sr, DO Eric French Sr [address] [place] [address] Subjective History of Present Illness Bhavna Kovacs is a 23 year old adult who presents today for evaluation of Diabetes . Diagnosed with Diabetes 2020. Pertinent medical history of . History of DKA? No History of hypoglycemia requiring treatment from others / hospitalization? Having nausea, shaky, blurred vision, constipation Hypoglycemia awareness: Good - will eat something Waking up with glucose at 180-200 Recent weight changes: Yes -lost about 5# Vision changes: Yes Increased thirst: Yes Polydipsia: No Polyuria: Yes DM Complications: none Prior DM Medications: Metformin 2 tabs 2x/day Current DM Medications: Na Glucose Monitoring: - Frequency of Monitorin times daily - Reports hypoglycemia. - Able to self treat: Yes - BG Values: - Breakfast: 180-200 Dinner is usually around 6:30/7p 8p : did not eat - 60s and if has eaten - in 70s - Wide fluctuations in glucose: Yes, see range as above Physical Activity: Physically active with [employer] boarding Diet: Breakfast: cereal - Krave with 2% milk Lunch: not eating Snack: chocolate Dinner: not hungry Snacks: 3am - chocolate Dessert: Beverages: water - 1 gallon or more Number of meals a day: 1 Number of snacks a day: 2 Prefer lunch meat, chicken nuggets, fries, some cereals with milk, drinking water Texture aversions, only likes a few things Had a seizure while trying to eat a Motzarella sticks - he is not really willing to try new foods right now Willing to try protein shakes Often not hungry Will not be hungry for very long periods then will eat 14 chicken nuggets or more Generally eats the same brand Does not eat vegetables at this time He is seeing neurology for seizures - 1st seizure at 16 yo - still getting worked up - and figuring out his medications Has not had a seizure in 2 months He is also to have testing for Autism/Autistic spectrum disorder Recent A1c Results: Hemoglobin A1C (POCT) (%) Date Value 04/16/2024 5.3 Diabetes Health Maintenance: Diabetic Foot and Retinal Eye Exam not Overdue Past History, Allergies, Medications Current Medications 04/13/2024 CARDIOVASCULAR Medication Dosage Pharm Subclass metoprolol succinate ER (TOPROL XL) 100 mg Take by mouth. Beta Blockers Cardiac Selective propranolol (INDERAL) 10 mg tablet Take 1 tablet by mouth three times daily. Beta Blockers Non-Cardiac Selective OTHER Medication Dosage Pharm Subclass BD LUER-MARYLOU SYRINGE 1 mL syringe for use with testosterone injection SQ Q2wks [facility] - [place] and Syringes lamoTRIgine (LAMICTAL) 25 mg tablet Take 100 mg by mouth twice daily. Anticonvulsant - Phenyltriazine Derivatives LORazepam (ATIVAN) 1 mg tablet Take 1 mg by mouth q 12 HR. Antianxiety Agent - Benzodiazepines Needle, Disp, 18 G (BD DISPOSABLE NEEDLES) 18 gauge x 1 ndle For use to withdraw testosterone Q2wks [facility] [place] and Syringes Needle, Disp, 23 G 23 gauge x 3/4 ndle For use with testosterone administration SQ Q2wks [facility] [place] and Syringes phenytoin ER (DILANTIN) 100 mg ER capsule Take 300 mg by mouth once daily. Anticonvulsant - Hydantoins testosterone cypionate (DEPO-TESTOSTERONE) 200 mg/mL injection INJECT 100 MG (0.5 ml) SQ Q2wks Androgen - Single Agents PAST MEDICAL HISTORY Diagnosis Date Anxiety Depression Family history of epilepsy Gender dysphoria Panic attacks Seizures (HCC) pseudoseizures Traumatic brain injury (HCC) PAST SURGICAL HISTORY Procedure Laterality Date NONE FAMILY HISTORY Problem Relation Age of Onset No Known Problems Mother other (overweight) Father No Known Problems Sister No Known Problems Brother Heart Maternal Grandmother valve replacement Heart Maternal Grandfather 48 No Known Problems Paternal Grandmother Diabetes Paternal Grandfather Hypertension Paternal Grandfather Lipids Paternal Grandfather Stroke Paternal Grandfather Heart Paternal Grandfather other (smokes) Paternal Grandfather No Known Problems Sister No Known Problems Brother Social History Toba (more content not included)... Normal [facility] HEMOGLOBIN A1C (POC)on 04-16 HbA1c (Bld) [Mass fraction] 5.3 % 4.3 - 5.6 % [facility] Comment on above: Location:[facility], [address] [place] [address] , [place], [place], [address] Point of care (POC) Hemoglobin A1c (HGBA1C) testing is intended to assess glucose control and provide a management tool for patients known to have diabetes and their healthcare providers. Target HGBA1C levels may depend on specific clinical circumstances. POC HGBA1C is not intended for use as a diagnostic or screening test; laboratory-based testing should be used for diagnostic purposes. The following information is supplemental and may not be applicable to specific diabetes management situations: The POC device design engineering specialist provides a normal range of 4.2% to 6.5% for the HGBA1C POC test. However, the [place] Diabetes Association guidelines indicate that patients with HGBA1C in the range of 5.7% to 6.4% are at increased risk for development of diabetes and that intervention by lifestyle modification may be beneficial. A HGBA1C level greater than or equal to 6.5% is considered diagnostic of diabetes, pending confirmatory testing. Use of HGBA1C testing to evaluate glucose control may not be appropriate for patients with hemoglobin variants or other conditions (e.g. anemia) that alter red blood cell lifespan. [facility] 36on 02-17-2024 36 Patient called and w ants to know if he's able to drive. He said he was cleared to drive per neurology- but I think neurology is saying his issues are cardiac related. What do you want me to tell him? Normal [facility] Telephoneon 02-17-2024 Telephone [id number] Juan Jose Kovacs M 2000 F Date Provider Department Center 02/17/2024 ROSALINE ARIAS EMANI [facility] No family history on file Normal [facility] Office Visiton 02-07-2024 Follow-up visit [id number] Juan Jose Kovacs 2000 F Date Provider Department Center 02/07/2024 Tia-AARON ESPARZA EMANI [facility] No family history on file Level of Service:26604 RI OFFICE/OUTPATIENT ESTABLISHED LOW MDM 20 MIN Normal [facility] ED Note - Provideron 024 ED Note - Provider [id number] FF [facility] CBC AND AUTO DIFFon 02-04-20 24 ABSOLUTE BASOPHIL 0.0 X10E9/L Normal 0.0-0.2 [facility] Comment on above: Performed By: #### N UM #### [facility] ([id number]) [address] [place] [address] ABSOLUTE NEUTROPHIL 7.1 X10E9/L High 1.5-6.6 [facility] Comment on above: Performed By: #### N UM #### [facility] ([id number]) [address] [place] [address] Basophils/100 WBC (Bld) 0.4 % Normal [facility] Comment on above: Performed By: #### N UM #### [facility] ([id number]) [address] [place] [address] Eosinophils (Bld) [#/Vol] 0.0 10*3/uL Normal 0.0-0.4 [facility] Comment on above: Performed By: #### N UM #### [facility] ([id number]) [address] [place] [address] Eosinophils/100 WBC (Bld) 0.1 % Normal [facility] Comment on above: Performed By: #### N UM #### [facility] ([id number]) [address] [place] [address] Erythrocyte distribution width (RBC) [Ratio] 15.0 % Normal 11.5-15.0 [facility] Comment on above: Performed By: #### N UM #### [facility] ([id number]) [address] [place] [address] Hematocrit (Bld) [Volume fraction] 39.8 % Normal 35-47 [facility] Comment on above: Performed By: #### N UM #### [facility] ([id number]) [address] [place] [address] Hemoglobin (Bld) [Mass/Vol] 13.4 g/dL Normal 11.7-15.5 [facility] Comment on above: Performed By: #### N UM #### [facility] ([id number]) [address] [place] [address] Lymphocytes (Bld) [#/Vol] 2.1 10*3/uL Normal 1.0-3.5 [facility] Comment on above: Performed By: #### N UM #### [facility] ([id number]) [address] [place] [address] Lymphocytes/100 WBC (Bld) 21.1 % Normal [facility] Comment on above: Performed By: #### N UM #### [facility] ([id number]) [address] [place] [address] 57932 MCH (RBC) [Entitic mass] 29.9 pg Normal 27-34 [facility] Comment on above: Performed By: #### N UM #### [facility] ([id number]) [address] [place] [address] 55310 MCHC (RBC) [Mass/Vol] 33.5 g/dL Normal 32-36 [facility] Comment on above: Performed By: #### N UM #### [facility] ([id number]) [address] [place] [address] 12947 MCV (RBC) [Entitic vol] 89 fL Normal 80-100 [facility] Comment on above: Performed By: #### N UM #### [facility] ([id number]) [address] [place] [address] 90687 Monocytes (Bld) [#/Vol] 0.7 10*3/uL Normal 0-0.9 [facility] Comment on above: Performed By: #### N UM #### [facility] ([id number]) [address] [place] [address] 67975 Monocytes/100 WBC (Bld) 7.5 % Normal [facility] Comment on above: Performed By: #### N UM #### [facility] ([id number]) [address] [place] [address] 21712 Neutrophils/100 WBC (Bld) 70.9 % Normal [facility] Comment on above: Performed By: #### N UM #### [facility] ([id number]) [address] [place] [address] 45871 Platelet mean volume (Bld) [Entitic vol] 7.4 fL Normal 7-12 [facility] Comment on above: Performed By: #### N UM #### [facility] ([id number]) [address] [place] [address] 42747 Platelets (Bld) [#/Vol] 287 10*3/uL Normal 150-450 [facility] Comment on above: Performed By: #### N UM #### [facility] ([id number]) [address] [place] [address] 40550 RBC COUNT 4.46 X10E12/L Normal 3.80-5.20 [facility] Comment on above: Performed By: #### N UM #### [facility] ([id number]) [address] [place] [address] 93243 WBC (Bld) [#/Vol] 10.0 10*3/uL Normal 4.0-11.0 [facility] Comment on above: Performed By: #### N UM #### [facility] ([id number]) [address] [place] [address] 61964 COMPREHENSIVE METABOLIC PANE Basim 02-04-2024 Albumin [Mass/Vol] 4.7 g/dL Normal 3.2-5.3 [facility] Comment on above: Performed By: #### N UM #### [facility] ([id number]) [address] [place] [address] 85544 ALP [Catalytic activity/Vol] 50 U/L Normal 39-130 [facility] Comment on above: Performed By: #### N UM #### [facility] ([id number]) [address] [place] [address] 05010 ALT [Catalytic activity/Vol] 13 U/L Normal 0-31 [facility] Comment on above: Performed By: #### N UM #### [facility] ([id number]) [address] [place] [address] 29961 Anion gap [Moles/Vol] 9 mmol/L Normal 5-15 [facility] Comment on above: Performed By: #### N UM #### [facility] ([id number]) [address] [place] [address] 23573 AST [Catalytic activity/Vol] 17 U/L Normal 0-41 [facility] Comment on above: Performed By: #### N UM #### [facility] ([id number]) [address] [place] [address] 69467 Bilirubin [Mass/Vol] 0.4 mg/dL Normal 0.3-1.2 [facility] Comment on above: Performed By: #### N UM #### [facility] ([id number]) [address] [place] [address] 55691 Calcium [Mass/Vol] 9.1 mg/dL Normal 8.5-10.5 [facility] Comment on above: Performed By: #### N UM #### [facility] ([id number]) [address] [place] [address] 99675 Chloride [Moles/Vol] 103 mmol/L Normal 98-109 [facility] Comment on above: Performed By: #### N UM #### [facility] ([id number]) [address] [place] [address] 76351 CO2 [Moles/Vol] 26 mmol/L Normal 22-32 [facility] Comment on above: Performed By: #### N UM #### [facility] ([id number]) [address] [place] [address] 69941 Creatinine [Mass/Vol] 0.88 mg/dL Normal 0.40-1.00 [facility] Comment on above: Result Comment: METH OD TRACEABLE TO IDMS STANDARD Performed By: #### N UM #### [facility] ([id number]) [address] [place] [address] 30597 eGFR (CKD-EPI) NON-RACE DEPENDENT >90 Normal >59 [facility] Comment on above: Result Comment: Reported eGFR is based on the CKD-EPI 2020 equation that does not use a race coefficient. Performed By: #### N UM #### [facility] ([id number]) [address] [place] [address] 65706 Glucose [Mass/Vol] 95 mg/dL Normal 65-99 [facility] Comment on above: Performed By: #### N UM #### [facility] ([id number]) [address] [place] [address] 69820 Potassium [Moles/Vol] 3.5 mmol/L Normal 3.5-5.0 [facility] Comment on above: Performed By: #### N UM #### [facility] ([id number]) [address] [place] [address] 15883 Protein [Mass/Vol] 7.9 g/dL Normal 6.0-8.0 [facility] Comment on above: Performed By: #### N UM #### [facility] ([id number]) [address] [place] [address] 25807 Sodium [Moles/Vol] 138 mmol/L Normal 134-146 [facility] Comment on above: Performed By: #### N UM #### [facility] ([id number]) [address] [facility], [place] [address] Urea nitrogen [Mass/Vol] 10 mg/dL Normal 5- [facility] Comment on above: Performed By: #### N UM #### [facility] ([id number]) [address] [facility], [place] [address] CT BRAIN WO CONTon CT BRAIN WO CONT CT BRAIN WO CONT STUDY: CT BRAIN WO CONT INDICATION: Head trauma, moderate-severe, head pain, seizure. TECHNIQUE: * CT head was performed without intravenous contrast using the standard protocol. Automated exposure control was utilized. * All CT scans at this facility use dose modulation, iterative reconstruction, and/or weight based dosing when appropriate to reduce radiation dose to as low as reasonably achievable. COMPARISON: 11/24/2023 FINDINGS: No evidence of acute intracranial hemorrhage, territorial infarct, mass effect, midline shift, or extra-axial fluid collection. Ventricles, sulci and cistern are unremarkable. Brain volume is age appropriate. Orbits and globes appear unremarkable. Soft tissues are unremarkable Paranasal sinuses are broadly clear. Mastoid air cells are broadly clear. No acute osseous abnormality. IMPRESSION: * No acute intracranial abnormality, by CT. * Consider MRI if you suspect occult process. Approved by Resident Karyna Gay DO on 02/04/2024 10:25 PM INahum MD have personally reviewed the image(s) and agree with and/or edited the report Finalized by Nahum Lobo MD on 02/04/2024 10:47 PM Normal [facility] CT CERVICAL SPINE WO CONTon 02-04-2024 CT CERVICAL SPINE WO CONT CT CERVICAL SPINE WO CONT CT CERVICAL SPINE WO CONT HISTORY: Neck trauma, midline tenderness, neck pain, fall COMPARISON: 11/24/2023 TECHNIQUE: Multi detector CT slices of the cervical spine were obtained without IV contrast. CT was performed with one or more of the following dose reduction techniques: Automated exposure control, adjustment of the mA and/or kV according to patient size, or use of iterative reconstruction technique. FINDINGS: The cervical alignment is maintained without spondylolisthesis. The vertebral body heights are preserved. The intervertebral disc spaces are maintained. Minimal endplate and facet joint degenerative changes. The atlantoaxial joint is within normal limits. The craniocervical junction is intact. No acute fracture is identified. No destructive osseous lesion. The prevertebral and paraspinous soft tissues are within normal limits. The lung apices are unremarkable. IMPRESSION: Unremarkable CT cervical spine. Consider MRI if you suspect occult process. Approved by Resident Karyna Gay DO on 02/04/2024 10:28 PM Nahum Osorio MD have personally reviewed the image(s) and agree with and/or edited the report Finalized by Nahum Lobo MD on 02/04/2024 10:48 PM Normal [facility] Lactate (P miguelina) [Moles/Vol]o n 02-04-2024 LACTATE W/REFLEX 1.3 mmol/L Normal 0.4-2.0 [facility] Comment on above: Result Comment: Result did not trigger repeat Lactate, re-order if needed. Performed By: #### N UM #### [facility] ([id number]) [address] [place] [address] 77495 lamoTRIgine [Mass/Vol]on Lamotrigine, S 13.0 mcg/mL Normal 3.0-15.0 [facility] Comment on above: Result Comment: NOTE ADDITIONAL INFORMATION This test was developed and its performance characteristics determined by [facility] in a manner consistent with CLIA requirements. This test has not been cleared or approved by the U.S. Food and Drug Administration. Test Performed by: [facility] [address] [place] [address] Body And Frame Man: Viridiana Pierson Ph.D.; CLIA# [id number] Performed By: #### N UM #### [facility] ([id number]) [address] [place] [address] 50039 MR LUMBAR SPINE WO CONTon MR LUMBAR [...] Nahun Henson on 01/24/2024 12:59 PM Normal [facility] Outside Recordson 01-13-2024 Outside Records [id number]#1.00OTGTIF F Normal [facility] CBC AND AUTO DIFFon 01-06-20 24 ABSOLUTE BASOPHIL 0.1 X10E9/L Normal 0.0-0.2 [facility] Comment on above: Performed By: #### C JERICHO PEDERSEN, 5643-2, 76158-0 ####[facility] ([id number])[address] [place] [address] ABSOLUTE NEUTROPHIL 7.0 X10E9/L High 1.5-6.6 [facility] Comment on above: Performed By: #### C JERICHO PEDERSEN, 57, ####[facility] ([id number])[address] [place] [address] 82650 Basophils/100 WBC (Bld) 0.7 % Normal [facility] Comment on above: Performed By: #### C JERICHO PEDERSEN, 44, ####[facility] ([id number])[address] [place] [address] 77767 Eosinophils (Bld) [#/Vol] 0.0 10*3/uL Normal 0.0-0.4 [facility] Comment on above: Performed By: #### C JERICHO PEDERSEN, [facility], ####[facility] ([id number])[address] [place] [address] 48525 Eosinophils/100 WBC (Bld) 0.3 % Normal [facility] Comment on above: Performed By: #### Kristen PEDERSEN [facility], , ####[facility] ([id number])[address] [place] [address] 72707 Erythrocyte distribution width (RBC) [Ratio] 15.4 % High 11.5-15.0 [facility] Comment on above: Performed By: #### Kristen PEDERSEN CMP, , ####[facility] ([id number])[address] [place] [address] 39207 Hematocrit (Bld) [Volume fraction] 40.7 % Normal 35-47 [facility] Comment on above: Performed By: #### Kristen PEDERSEN CMP, 44, ####[facility] ([id number])[address] [place] [address] 98836 Hemoglobin (Bld) [Mass/Vol] 13.6 g/dL Normal 11.7-15.5 [facility] Comment on above: Performed By: #### Kristen PEDERSEN CMP, [facility]-, ####[facility] ([id number])[address] [place] [address] 16560 Lymphocytes (Bld) [#/Vol] 2.3 10*3/uL Normal 1.0-3.5 [facility] Comment on above: Performed By: #### Kristen PEDERSEN [facility], [facility], ####[facility] ([id number])[address] [place] [address] 39504 Lymphocytes/100 WBC (Bld) 23.0 % Normal [facility] Comment on above: Performed By: #### C SLAVA [facility], [facility], ####[facility] ([id number])[address] [place] [address] 07996 MCH (RBC) [Entitic mass] 29.2 pg Normal 27-34 [facility] Comment on above: Performed By: #### C SLAVA [facility], [facility], ####[facility] ([id number])[address] [place] [address] 94527 MCHC (RBC) [Mass/Vol] 33.4 g/dL Normal 32-36 [facility] Comment on above: Performed By: #### Kristen PEDERSEN [facility], [facility]-, ####[facility] ([id number])[address] [place] [address] 93320 MCV (RBC) [Entitic vol] 87 fL Normal 80-100 [facility] Comment on above: Performed By: #### Kristen PEDERSEN [facility], [facility]-, ####[facility] ([id number])[address] [place] [address] 90653 Monocytes (Bld) [#/Vol] 0.8 10*3/uL Normal 0-0.9 [facility] Comment on above: Performed By: #### C SLAVA, CMP, 5643-2, ####[facility] ([id number])[address] [place] [address] 23819 Monocytes/100 WBC (Bld) 7.8 % Normal [facility] Comment on above: Performed By: #### Kristen PEDERSEN, CMP, 5643-2, ####[facility] ([id number])[address] [place] [address] 41497 Neutrophils/100 WBC (Bld) 68.2 % Normal [facility] Comment on above: Performed By: #### Kristen PEDERSEN, CMP, 5643-2, ####[facility] ([id number])[address] [place] [address] 12183 Platelet mean volume (Bld) [Entitic vol] 7.7 fL Normal 7-12 [facility] Comment on above: Performed By: #### Kristen PEDERSEN, CMP, 5643-, ####[facility] ([id number])[address] [place] [address] 16009 Platelets (Bld) [#/Vol] 327 10*3/uL Normal 150-450 [facility] Comment on above: Performed By: #### Kristen PEDERSEN CMP, 5643-, ####[facility] ([id number])[address] [place] [address] 29754 RBC COUNT 4.66 X10E12/L Normal 3.80-5.20 [facility] Comment on above: Performed By: #### Kristen PEDERSEN, CMP, 5643-2, ####[facility] ([id number])[address] [place] [address] 12895 WBC (Bld) [#/Vol] 10.2 10*3/uL Normal 4.0-11.0 [facility] Comment on above: Performed By: #### C BCA, CMP, 5643-2, 24749-4 ####[facility] ([id number])[address] [place] [address] 42586 COMPREHENSIVE METABOLIC PANE Basim 01-06-2024 Albumin [Mass/Vol] 4.6 g/dL Normal 3.2-5.3 [facility] Comment on above: Performed By: #### C BCA, CMP, 43-2, ####[facility] ([id number])[address] [place] [address] 88535 ALP [Catalytic activity/Vol] 64 U/L Normal 39-130 [facility] Comment on above: Performed By: #### C BCA, CMP, 5643-2, ####[facility] ([id number])[address] [place] [address] 43406 ALT [Catalytic activity/Vol] 15 U/L Normal 0-31 [facility] Comment on above: Performed By: #### C BCA, CMP, 5643-2, 81970-8 ####[facility] ([id number])[address] [place] [address] 87111 Anion gap [Moles/Vol] 14 mmol/L Normal 5-15 [facility] Comment on above: Performed By: #### C BCA, CMP, 5643-2, 83817-4 ####[facility] ([id number])[address] [place] [address] [place] [address] AST [Catalytic activity/Vol] 21 U/L Normal 0-41 [facility] Comment on above: Performed By: #### C BCA, CMP, 5643-2, 15493-2 ####[facility] ([id number])[address] [place] [address] 24472 Bilirubin [Mass/Vol] 0.4 mg/dL Normal 0.3-1.2 [facility] Comment on above: Performed By: #### C JERICHO PEDERSEN, 5643-2, 90736-4 ####[facility] ([id number])[address] [place] [address] 12716 Calcium [Mass/Vol] 9.0 mg/dL Normal 8.5-10.5 [facility] Comment on above: Performed By: #### C JERICHO PEDERSEN, 5643-2, ####[facility] ([id number])[address] [place] [address] 76672 Chloride [Moles/Vol] 99 mmol/L Normal 98-109 [facility] Comment on above: Performed By: #### C JERICHO PEDERSEN, 44, 69263-8 ####[facility] ([id number])[address] [place] [address] 17550 CO2 [Moles/Vol] 26 mmol/L Normal 22-32 [facility] Comment on above: Performed By: #### C JERICHO PEDERSEN, 5642-07, 88490-8 ####[facility] ([id number])[address] [place] [address] 52107 Creatinine [Mass/Vol] 0.74 mg/dL Normal 0.40-1.00 [facility] Comment on above: Result Comment: METH OD TRACEABLE TO IDMS STANDARD Performed By: #### C JERICHO PEDERSEN, 5643-2, 44677-6 ####[facility] ([id number])[address] [place] [address] [place] [address] eGFR (CKD-EPI) NON-RACE DEPENDENT >90 Normal >59 [facility] Comment on above: Result Comment: Reported eGFR is based on the CKD-EPI 2020 equation that does not use a race coefficient. Performed By: #### C JERICHO PEDERSEN, 5643-2, 14709-6 ####[facility] ([id number])[address], [place] [address] Glucose [Mass/Vol] 86 mg/dL Normal 65-99 [facility] Comment on above: Performed By: #### C JERICHO PEDERSEN, 5643-2, 49624-1 ####[facility] ([id number])[address] [place] [address] 60303 Potassium [Moles/Vol] 3.6 mmol/L Normal 3.5-5.0 [facility] Comment on above: Performed By: #### C JERICHO PEDERSEN, 5643-2, 71417-7 ####[facility] ([id number])[address] [place] [address] 53133 Protein [Mass/Vol] 7.9 g/dL Normal 6.0-8.0 [facility] Comment on above: Performed By: #### Kristen PEDERSEN CMP, 5643-2, 61953-6 ####[facility] ([id number])[address] [place] [address] 92499 Sodium [Moles/Vol] 139 mmol/L Normal 134-146 [facility] Comment on above: Performed By: #### Kristen PEDERSEN CMP, 5643-, 86252-0 ####[facility] ([id number])[address] [place] [address] 82271 Urea nitrogen [Mass/Vol] 8 mg/dL Normal 5-23 [facility] Comment on above: Performed By: #### Kristen PEDERSEN CMP, 5643-2, 91443-7 ####[facility] ([id number])[address] [place] [address] 07220 ETHANOLon 01-06-2024 Ethanol [Mass/Vol] mg/dL Normal 0.00-0.08 [facility] Comment on above: Result Comment: This report is intended for use in clinical monitoring or management of patients. Performed By: #### Kristen PEDERSEN CMP, 5643-2, 48289-2 ####[facility] ([id number])[address] [place] [address], [place] [address] MAGNESIUMon 01-06-2024 Magnesium [Mass/Vol] 2.2 mg/dL Normal 1.8-2.6 [facility] Comment on above: Performed By: #### N UM #### [facility] ([id number]) [address] [place] [address], [place] [address] 37on 01-03-2024 37 Increase midodrine t o 10 mg three times a day for low blood pressure Increase metoprolol to 25 mg (1 tab) - if worsening lightheadedness may decrease back to 1/2 tab Add salt to diet/electrolyte replacements to help with preventing dehydration [facility] Office Visiton 01-03-2024 Follow-up visit [id number] Juan Jose Kovacs 2000 F Date Provider Department Center 01/03/2024 Leisa-SWAPNA DAMON CARD [facility] No family history on file Level of Service:27151 [place] OFFICE/OUTPATIENT ESTABLISHED MOD MDM 30 MIN [facility] Insuranceon 01-02-2024 Insurance [id number]#1.00OTGT IFF [facility] Insuranceon 12-22-2023 Insurance [id number]#1.00OTGTI FF [facility] Outside Recordson 12-13-2023 Outside Records [id number]#1.00OTGT IFF [facility] Basic Metabolic Panelon 11-25 Anion gap [Moles/Vol] 11 mmol/L 9 - 17 mmol/L [facility] Calcium [Mass/Vol] 9.4 mg/dL 8.6 - 10. 4 mg/dL [facility] Chloride [Moles/Vol] 100 mmol/L 98 - 10 7 mmol/L [facility] CO2 [Moles/Vol] 28 mmol/L 20 - 31 mmol/L [facility] Creatinine [Mass/Vol] 0.7 mg/dL 0.5 - 0.9 mg/dL [facility] Est, Teresita [employer] [facility] Comment on above: These results are [...] [Mass/Vol] 88 mg/dL 70 - 99 mg/dL [facility] Potassium [Moles/Vol] 3.8 mmol/L 3.7 - 5.3 mmol/L [facility] Sodium [Moles/Vol] 139 mmol/L 135 - 144 mmol/L [facility] Urea nitrogen [Mass/Vol] 10 mg/dL 6 - 20 mg/dL [facility] Urea nitrogen/Creatinine [Mass ratio] 14 mg/mg 9 - 20 [facility] Basic Metabolic Profon 12-08 Anion gap [Moles/Vol] 11 mmol/L Normal 9-17 [facility] Comment on above: Performed By: #### C NARCISO, BMP #### [facility] [address] [place] [address] Body And Frame Man: Chidi Richter MD BUN/CRE Ratio 14 Normal -20 [facility] Comment on above: Performed By: #### C BC, BMP #### [facility] [address] [place] [address] Body And Frame Man: Chidi Richter MD Calcium [Mass/Vol] 9.4 mg/dL Normal 8.6-10.4 [facility] Comment on above: Performed By: #### C NARCISO, BMP #### [facility] [address] [facility] [place], [place] [address] Body And Frame Man: Chidi Richter MD Chloride [Moles/Vol] 100 mmol/L Normal 98-107 [facility] Comment on above: Performed By: #### C BC, BMP #### [facility] [address] [place] [address] Body And Frame Man: Chidi Richter MD CO2 [Moles/Vol] 28 mmol/L Normal 20-31 [facility] Comment on above: Performed By: #### C BC, BMP #### [facility] [address] [place] [address] Body And Frame Man: Chidi Richter MD Creatinine [Mass/Vol] 0.7 mg/dL Normal 0.5-0.9 [facility] Comment on above: Performed By: #### C BC, BMP #### [facility] [place] [address] Body And Frame Man: Chidi Richter MD GFR/1.73 sq M.predicted among non-blacks MDRD (S/P/Bld) [Vol rate/Area] mL/min/{1.73_m2} Normal >60 [facility] Comment on above: Result Comment: These results [...] Performed By: #### C BC, BMP #### [facility] [address] [facility] [place] [address] Body And Frame Man: Chidi Richter MD Glucose [Mass/Vol] 88 mg/dL Normal 70-99 [facility] Comment on above: Performed By: #### C BC, BMP #### [facility] [address] [place] [address] Body And Frame Man: Chidi Richter MD Potassium [Moles/Vol] 3.8 mmol/L Normal 3.7-5.3 [facility] Comment on above: Performed By: #### C NARCISO, BMP #### [facility] [address] [facility] [place], [place] [address] Body And Frame Man: Chidi Richter MD Sodium [Moles/Vol] 139 mmol/L Normal 135-144 [facility] Comment on above: Performed By: #### C NARCISO, BMP #### [facility] [address] [place] [address] Body And Frame Man: Chidi Richter MD Urea nitrogen [Mass/Vol] 10 mg/dL Normal 6-20 [facility] Comment on above: Performed By: #### C NARCISO, BMP #### [facility] [address] [place] [address] Body And Frame Man: [facility]idi [facility] Erythrocyte distribution width (RBC) [Ratio] 13.3 % 11.8 - 14.4 % [facility] Hematocrit (Bld) [Volume fraction] 40.9 % 36.3 - 47.1 % [facility] Hemoglobin (Bld) [Mass/Vol] 13.7 g/dL 11.9 - 15.1 g/dL [facility] MCH (RBC) [Entitic mass] 28.5 pg 25.2 - 33.5 pg [facility] MCHC (RBC) [Mass/Vol] 33.5 g/dL 28.4 - 34.8 g/dL [facility] MCV (RBC) [Entitic vol] 85.0 fL 82.6 - 102.9 fL [facility] Nucleated RBC/100 WBC (Bld) [Ratio] 0.0 % 0.0 per 100 WBC [facility] Platelet mean volume (Bld) [Entitic vol] 9.9 fL 8.1 - 13.5 fL [facility] Platelets (Bld) [#/Vol] 253 10*3/uL [facility] RBC (Bld) [#/Vol] 4.81 10*6/uL 3.95 - 5.11 m/uL [facility] WBC other (Bld) [#/Vol] 6.6 [facility] Erythrocyte distribution width (RBC) [Ratio] 13.3 % Normal 11.8-14.4 [facility] Comment on above: Performed By: #### C BC, BMP #### [facility] [address] [place] [place] [address] Body And Frame Man: Chidi Richter MD Hematocrit (Bld) [Volume fraction] 40.9 % Normal 36.3-47.1 [facility] Comment on above: Performed By: #### C BC, BMP #### [facility] [address] [place] [address]. [place] [address] Body And Frame Man: Chidi Richter MD Hemoglobin (Bld) [Mass/Vol] 13.7 g/dL Normal 11.9-15.1 [facility] Comment on above: Performed By: #### C BC, BMP #### [facility] [place] [address] Body And Frame Man: Chidi Richter MD MCH (RBC) [Entitic mass] 28.5 pg Normal 25.2-33.5 [facility] Comment on above: Performed By: #### C BC, BMP #### [facility] [place] [address] Body And Frame Man: Chidi Richter MD MCHC (RBC) [Mass/Vol] 33.5 g/dL Normal 28.4-34.8 [facility] Comment on above: Performed By: #### C BC, BMP #### [facility] [place] [address] Body And Frame Man: Chidi Richter MD MCV (RBC) [Entitic vol] 85.0 fL Normal 82.6-102.9 [facility] Comment on above: Performed By: #### C NARCISO, BMP #### [facility] [address] [place] [address] Body And Frame Man: Chidi Richter MD NRBC Automated 0.0 per 100 WBC Normal 0.0 [facility] Comment on above: Performed By: #### C NARCISO, BMP #### [facility] [address] [place] [address]. [place] [address] Body And Frame Man: Chidi Richter MD Platelet mean volume (Bld) [Entitic vol] 9.9 fL Normal 8.1-13.5 [facility] Comment on above: Performed By: #### C NARCISO, BMP #### [facility] [address] [place] [address]. [place] [address] Body And Frame Man: Chidi Richter MD Platelets (Bld) [#/Vol] 253 10*3/uL Normal 138-453 [facility] Comment on above: Performed By: #### C NARCISO, BMP #### [facility] [address] [place] [address]. [place] [address] Body And Frame Man: Chidi Richter MD RBC (Bld) [#/Vol] 4.81 10*6/uL Normal 3.95-5.11 [facility] Comment on above: Performed By: #### C NARCISO, BMP #### [facility] [address] [place] [address]. [place] [address] Body And Frame Man: Chidi Richter MD WBC (Bld) [#/Vol] 6.6 10*3/uL Normal 3.5-11.3 [facility] Comment on above: Performed By: #### C NARCISO, BMP #### [facility] [address] [place] [address] Body And Frame Man: Chidi Richter MD Basic Metabolic Profon 12-05 Anion gap [Moles/Vol] 17 mmol/L Normal 9-17 [facility] Comment on above: Performed By: #### B MP, CBC #### [facility] [address] [place] [address] Body And Frame Man: Chidi Richter MD BUN/CRE Ratio 20 Normal 9-20 [facility] Comment on above: Performed By: #### B MP, CBC #### [facility] [address] [place] [address] Body And Frame Man: Chidi Richter MD Calcium [Mass/Vol] 9.8 mg/dL Normal 8.6-10.4 [facility] Comment on above: Performed By: #### B MP, CBC #### [facility] [address] [place] [address] Body And Frame Man: Chidi Richter MD Chloride [Moles/Vol] 97 mmol/L Low 98-107 [facility] Comment on above: Performed By: #### B MP, CBC #### [facility] [address] [place] [address] Body And Frame Man: Chidi Richter MD CO2 [Moles/Vol] 25 mmol/L Normal 20-31 [facility] Comment on above: Performed By: #### B MP, CBC #### [facility] [address] [place] [address] Body And Frame Man: Chidi Richter MD Creatinine [Mass/Vol] 0.7 mg/dL Normal 0.5-0.9 [facility] Comment on above: Performed By: #### B MP, CBC #### [facility] [address] [place] [address] Body And Frame Man: Chidi Richter MD GFR/1.73 sq M.predicted among non-blacks MDRD (S/P/Bld) [Vol rate/Area] mL/min/{1.73_m2} Normal >60 [facility] Comment on above: Result Comment: These results [...] Performed By: #### B DANIEL, CBC #### [facility] [address] [place] [address] Body And Frame Man: Chidi Richter MD Glucose [Mass/Vol] 56 mg/dL Low 70-99 [facility] Comment on above: Performed By: #### B DANIEL, CBC #### [facility] [address] [place] [address] Body And Frame Man: Chidi Richter MD Potassium [Moles/Vol] 3.8 mmol/L Normal 3.7-5.3 [facility] Comment on above: Performed By: #### B DANIEL, CBC #### [facility] [address] [place] [address] Body And Frame Man: Chidi Richter MD Sodium [Moles/Vol] 139 mmol/L Normal 135-144 [facility] Comment on above: Performed By: #### B MP, CBC #### [facility] [address] [place] [address] Body And Frame Man: Chidi Richter MD Urea nitrogen [Mass/Vol] 14 mg/dL Normal 6-20 [facility] Comment on above: Performed By: #### B DANIEL, CBC #### [facility] [address] [place] [address] Body And Frame Man: Chidi Richter MD CBCon 12-06-2023 Erythrocyte distribution width (RBC) [Ratio] 13.2 % Normal 11.8-14.4 [facility] Comment on above: Performed By: #### B MP, CBC #### [facility] [address] [place] [address]. [place] [address] Body And Frame Man: Chidi Richter MD Hematocrit (Bld) [Volume fraction] 40.6 % Normal 36.3-47.1 [facility] Comment on above: Performed By: #### B MP, CBC #### [facility] [address] [place] [address]. [place] [address] Body And Frame Man: Chidi Richter MD Hemoglobin (Bld) [Mass/Vol] 13.6 g/dL Normal 11.9-15.1 [facility] Comment on above: Performed By: #### B MP, CBC #### [facility] [address] [place] [address]. [place] [address] Body And Frame Man: Chidi Richter MD MCH (RBC) [Entitic mass] 29.2 pg Normal 25.2-33.5 [facility] Comment on above: Performed By: #### B MP, CBC #### [facility] [address] [place] [address]. [place] [address] Body And Frame Man: Chidi Richter MD MCHC (RBC) [Mass/Vol] 33.5 g/dL Normal 28.4-34.8 [facility] Comment on above: Performed By: #### B MP, CBC #### [facility] [address] [place] [address]. [place] [address] Body And Frame Man: Chidi Richter MD MCV (RBC) [Entitic vol] 87.3 fL Normal 82.6-102.9 [facility] Comment on above: Performed By: #### B MP, CBC #### [facility] [place] [address] Body And Frame Man: Chidi Richter MD NRBC Automated 0.0 per 100 WBC Normal 0.0 [facility] Comment on above: Performed By: #### B MP, CBC #### [facility] [address] [place] [address]. [place] [address] Body And Frame Man: Chidi Richter MD Platelet mean volume (Bld) [Entitic vol] 10.3 fL Normal 8.1-13.5 [facility] Comment on above: Performed By: #### B MP, CBC #### [facility] [address] [place] [address] Body And Frame Man: Chidi Richter MD Platelets (Bld) [#/Vol] 233 10*3/uL Normal 138-453 [facility] Comment on above: Performed By: #### B MP, CBC #### [facility] [address] [place] [address]. [place] [address] Body And Frame Man: Chidi Richter MD RBC (Bld) [#/Vol] 4.65 10*6/uL Normal 3.95-5.11 [facility] Comment on above: Performed By: #### B MP, CBC #### [facility] [address] [place] [address]. [place] [address] Body And Frame Man: Chidi Richter MD WBC (Bld) [#/Vol] 7.0 10*3/uL Normal 3.5-11.3 [facility] Comment on above: Performed By: #### B MP, CBC #### [facility] [address] [place] [address]. [place] [address] Body And Frame Man: Chidi Richter MD Basic Metabolic Profon 12-01 Anion gap [Moles/Vol] 10 mmol/L Normal 9-17 [facility] Comment on above: Performed By: #### C BC, BMP #### [facility] [address] [place] [address] Body And Frame Man: Chidi Richter MD BUN/CRE Ratio 11 Normal 9-20 [facility] Comment on above: Performed By: #### C BC, BMP #### [facility] [address] [place] [address] Body And Frame Man: Chidi Richter MD Calcium [Mass/Vol] 9.2 mg/dL Normal 8.6-10.4 [facility] Comment on above: Performed By: #### C NARCISO, BMP #### [facility] [address] [place] [address] Body And Frame Man: Chidi Richter MD Chloride [Moles/Vol] 105 mmol/L Normal 98-107 [facility] Comment on above: Performed By: #### C BC, BMP #### [facility] [address] [place] [address] Body And Frame Man: Chidi Richter MD CO2 [Moles/Vol] 26 mmol/L Normal 20-31 [facility] Comment on above: Performed By: #### C BC, BMP #### [facility] [address] [place] [address] Body And Frame Man: Chidi Richter MD Creatinine [Mass/Vol] 0.7 mg/dL Normal 0.5-0.9 [facility] Comment on above: Performed By: #### C BC, BMP #### [facility] [address] [place] [address] Body And Frame Man: Chidi Richter MD GFR/1.73 sq M.predicted among non-blacks MDRD (S/P/Bld) [Vol rate/Area] mL/min/{1.73_m2} Normal >60 [facility] Comment on above: Result Comment: These results [...] Performed By: #### C NARCISO, BMP #### [facility] [place] [address] Body And Frame Man: Chidi Richter MD Glucose [Mass/Vol] 93 mg/dL Normal 70-99 [facility] Comment on above: Performed By: #### Kristen STUART, BMP #### [facility] [address] [place] [address] Body And Frame Man: Chidi Richter MD Potassium [Moles/Vol] 3.9 mmol/L Normal 3.7-5.3 [facility] Comment on above: Performed By: #### Kristen STUART, BMP #### [facility] [place] [address] Body And Frame Man: Chidi Richter MD Sodium [Moles/Vol] 141 mmol/L Normal 135-144 [facility] Comment on above: Performed By: #### C NARCISO, BMP #### [facility] [place] [address] Body And Frame Man: Chidi Richter MD Urea nitrogen [Mass/Vol] 8 mg/dL Normal 6-20 [facility] Comment on above: Performed By: #### C NARCISO, BMP #### [facility] [address] [place] [address]. [place] [address] Body And Frame Man: Chidi Richter MD CBCon 12-02-2023 Erythrocyte distribution width (RBC) [Ratio] 13.0 % Normal 11.8-14.4 [facility] Comment on above: Performed By: #### C NARCISO, BMP #### [facility] [address] [place] [address]. [place] [address] Body And Frame Man: Chidi Richter MD Hematocrit (Bld) [Volume fraction] 39.2 % Normal 36.3-47.1 [facility] Comment on above: Performed By: #### C NARCISO, BMP #### [facility] [address] [place] [address]. [place] [address] Body And Frame Man: Chidi Richter MD Hemoglobin (Bld) [Mass/Vol] 12.7 g/dL Normal 11.9-15.1 [facility] Comment on above: Performed By: #### C NARCISO, BMP #### [facility] [address] [place] [address]. [place] [address] Body And Frame Man: Chidi Richter MD MCH (RBC) [Entitic mass] 28.7 pg Normal 25.2-33.5 [facility] Comment on above: Performed By: #### C NARCISO, BMP #### [facility] [address] [place] [address]. [place] [address] Body And Frame Man: Chidi Richter MD MCHC (RBC) [Mass/Vol] 32.4 g/dL Normal 28.4-34.8 [facility] Comment on above: Performed By: #### C NARCISO, BMP #### [facility] [address] [place] [address] Body And Frame Man: Chidi Richter MD MCV (RBC) [Entitic vol] 88.5 fL Normal 82.6-102.9 [facility] Comment on above: Performed By: #### C BC, BMP #### [facility] [address] [place] [address] Body And Frame Man: Chidi Richter MD NRBC Automated 0.0 per 100 WBC Normal 0.0 [facility] Comment on above: Performed By: #### C BC, BMP #### [facility] [address] [place] [address] Body And Frame Man: Chidi Richter MD Platelet mean volume (Bld) [Entitic vol] 10.0 fL Normal 8.1-13.5 [facility] Comment on above: Performed By: #### C NARCISO, BMP #### [facility] [place] [address] Body And Frame Man: Chidi Richter MD Platelets (Bld) [#/Vol] 221 10*3/uL Normal 138-453 [facility] Comment on above: Performed By: #### C NARCISO, BMP #### [facility] [address] [place] [address] Body And Frame Man: Chidi Richter MD RBC (Bld) [#/Vol] 4.43 10*6/uL Normal 3.95-5.11 [facility] Comment on above: Performed By: #### C NARCISO, BMP #### [facility] [address] [place] [address] Body And Frame Man: Chidi Richter MD WBC (Bld) [#/Vol] 7.4 10*3/uL Normal 3.5-11.3 [facility] Comment on above: Performed By: #### C BC, BMP #### [facility] [address] [place] [address] Body And Frame Man: Chidi Richter MD BMPon 12-01-2023 Anion gap [Moles/Vol] 8 mmol/L Low 9 - 17 mmol/L [facility] Calcium [Mass/Vol] 8.8 mg/dL 8.6 - 10. 4 mg/dL [facility] Chloride [Moles/Vol] 106 mmol/L 98 - 10 7 mmol/L [facility] CO2 [Moles/Vol] 26 mmol/L 20 - 31 mmol/L [facility] Creatinine [Mass/Vol] 0.8 mg/dL 0.5 - 0.9 mg/dL [facility] Est, [employer] [place] Rate - [facility] Comment on above: These results are [...] [Mass/Vol] 92 mg/dL 70 - 99 mg/dL [facility] Interpretation and review of laboratory results Abnormal [facility] Potassium [Moles/Vol] 4.1 mmol/L 3.7 - 5.3 mmol/L [facility] Sodium [Moles/Vol] 140 mmol/L 135 - 144 mmol/L [facility] Urea nitrogen [Mass/Vol] 11 mg/dL 6 - 20 mg/dL [facility] Urea nitrogen/Creatinine [Mass ratio] 14 mg/mg 9 - 20 [facility] Basic Metabolic Profon 11-30 Anion gap [Moles/Vol] 8 mmol/L Low 9-17 [facility] Comment on above: Performed By: #### C BC, CP #### [facility] [address] [place] [address] Body And Frame Man: Chidi Richter MD BUN/CRE Ratio 14 Normal - [facility] Comment on above: Performed By: #### C BC, CP #### [facility] [address] [place] [address] Body And Frame Man: Chidi Richter MD Calcium [Mass/Vol] 8.8 mg/dL Normal 8.6-10.4 [facility] Comment on above: Performed By: #### C NARCISO, CP #### [facility] [address] [place] [address] Body And Frame Man: Chidi Richter MD Chloride [Moles/Vol] 106 mmol/L Normal 98-107 [facility] Comment on above: Performed By: #### C NARCISO, CP #### [facility] [address] [place] [address] Body And Frame Man: Chidi Richter MD CO2 [Moles/Vol] 26 mmol/L Normal 20-31 [facility] Comment on above: Performed By: #### C NARCISO, CP #### [facility] [address] [place] [address] Body And Frame Man: Chidi Richter MD Creatinine [Mass/Vol] 0.8 mg/dL Normal 0.5-0.9 [facility] Comment on above: Performed By: #### C NARCISO, CP #### [facility] [place] [address] Body And Frame Man: Chidi Richter MD GFR/1.73 sq M.predicted among non-blacks MDRD (S/P/Bld) [Vol rate/Area] mL/min/{1.73_m2} Normal >60 [facility] Comment on above: Result Comment: These results [...] Performed By: #### C NARCISO, CP #### [facility] [address] [place] [address] Body And Frame Man: Chidi Richter MD Glucose [Mass/Vol] 92 mg/dL Normal 70-99 [facility] Comment on above: Performed By: #### C NARCISO, CP #### [facility] [address] [place] [address] Body And Frame Man: Chidi Richter MD Potassium [Moles/Vol] 4.1 mmol/L Normal 3.7-5.3 [facility] Comment on above: Performed By: #### C NARCISO, CP #### [facility] [place] [address] Body And Frame Man: Chidi Richter MD Sodium [Moles/Vol] 140 mmol/L Normal 135-144 [facility] Comment on above: Performed By: #### Kristen STUART, CP #### [facility] [facility] [place] [address] Body And Frame Man: Chidi Richter MD Urea nitrogen [Mass/Vol] 11 mg/dL Normal 6-20 [facility] Comment on above: Performed By: #### Kristen STUART, CP #### [facility] [place] [address] Body And Frame Man: Chidi Richter MD CBCon 12-01-2023 Erythrocyte distribution width (RBC) [Ratio] 13.1 % Normal 11.8-14.4 [facility] Comment on above: Performed By: #### C NARCISO, CP #### [facility] [place] [address] Body And Frame Man: Chidi Richter MD Hematocrit (Bld) [Volume fraction] 40.6 % Normal 36.3-47.1 [facility] Comment on above: Performed By: #### C NARCISO, CP #### [facility] [address] [facility] [place] [address] Body And Frame Man: Chidi Richter MD Hemoglobin (Bld) [Mass/Vol] 13.1 g/dL Normal 11.9-15.1 [facility] Comment on above: Performed By: #### C NARCISO, CP #### [facility] [place] [address] Body And Frame Man: Chidi Richter MD MCH (RBC) [Entitic mass] 28.7 pg Normal 25.2-33.5 [facility] Comment on above: Performed By: #### C NARCISO, CP #### [facility] [address] [place] [address]. [place] [address] Body And Frame Man: Chidi Richter MD MCHC (RBC) [Mass/Vol] 32.3 g/dL Normal 28.4-34.8 [facility] Comment on above: Performed By: #### C NARCISO, CP #### [facility] [address] [place] [address]. [place] [address] Body And Frame Man: Chidi Richter MD MCV (RBC) [Entitic vol] 88.8 fL Normal 82.6-102.9 [facility] Comment on above: Performed By: #### C NARCISO, CP #### [facility] [place] [address] Body And Frame Man: Chidi Richter MD NRBC Automated 0.0 per 100 WBC Normal 0.0 [facility] Comment on above: Performed By: #### C NARCISO, CP #### [facility] [address] [place] [address]. [place] [address] Body And Frame Man: Chidi Richter MD Platelet mean volume (Bld) [Entitic vol] 10.0 fL Normal 8.1-13.5 [facility] Comment on above: Performed By: #### C NARCISO, CP #### [facility] [address] [place] [address] Body And Frame Man: Chidi Richter MD Platelets (Bld) [#/Vol] 222 10*3/uL Normal 138-453 [facility] Comment on above: Performed By: #### C NARCISO, CP #### [facility] [address] [place] [address] Body And Frame Man: Chidi Richter MD RBC (Bld) [#/Vol] 4.57 10*6/uL Normal 3.95-5.11 [facility] Comment on above: Performed By: #### C NARCISO, CP #### [facility] [address] [place] [address]. [place] [address] Body And Frame Man: Chidi Richter MD WBC (Bld) [#/Vol] 6.0 10*3/uL Normal 3.5-11.3 [facility] Comment on above: Performed By: #### C NARCISO, CP #### [facility] [place] [address] Body And Frame Man: Chidi Richter MD CBC with Auto Differentialon 12-01-2023 Basophils (Bld) [#/Vol] 0.03 10*3/uL [facility] [employer] Basophils/100 WBC (Bld) 1 % 0 - 2 % [facility] Eosinophils (Bld) [#/Vol] 0.08 10*3/uL [facility] [employer] Eosinophils/100 WBC (Bld) 1 % 1 - 4 % [facility] Erythrocyte distribution width (RBC) [Ratio] 13.0 % 11.8 - 14.4 % [facility] [employer] Hematocrit (Bld) [Volume fraction] 40.2 % 36.3 - 47.1 % [facility] [employer] Hemoglobin (Bld) [Mass/Vol] 13.0 g/dL 11.9 - 15.1 g/dL [facility] Immature granulocytes (Bld) [#/Vol] 0.01 10*3/uL [facility] Immature granulocytes/100 WBC (Bld) 0 % 0 [facility] Interpretation and review of laboratory results Abnormal [facility] Lymphocytes/100 WBC (Bld) 44 % High 24 - 43 % [facility] Lymphocytes/100 WBC (Bld) 2.68 % [facility] MCH (RBC) [Entitic mass] 28.8 pg 25.2 - 33.5 pg [facility] MCHC (RBC) [Mass/Vol] 32.3 g/dL 28.4 - 34.8 g/dL [facility] MCV (RBC) [Entitic vol] 89.1 fL 82.6 - 102.9 fL [facility] Monocytes/100 WBC (Bld) 8 % 3 - 12 % [facility] Monocytes/100 WBC (Bld) 0.47 % [facility] Neutrophils/100 WBC (Bld) 46 % 36 - 65 % [facility] Nucleated RBC/100 WBC (Bld) [Ratio] 0.0 % 0.0 per 100 WBC [facility] Platelet mean volume (Bld) [Entitic vol] 10.2 fL 8.1 - 13.5 fL [facility] Platelets (Bld) [#/Vol] 222 10*3/uL [facility] RBC (Bld) [#/Vol] 4.51 10*6/uL 3.95 - 5.11 m/uL [facility] Segmented neutrophils/100 WBC (Bld) 2.89 % [facility] WBC other (Bld) [#/Vol] 6.2 [facility] CBC with Diffon 12-01-2023 Abs. Basophil 0.03 k/uL Normal 0.00-0.20 [facility] Comment on above: Performed By: #### C BC, CP #### [facility] [address] [place] [address] Body And Frame Man: Chidi Richter MD Abs.Imm.Granulocyte 0.01 k/uL Normal 0.00-0.30 [facility] Comment on above: Performed By: #### Kristen STUART, CP #### [facility] [address] [place] [address]. [place] [address] Body And Frame Man: Chidi Richter MD Abs.Neutrophil (Seg) 2.89 k/uL Normal 1.50-8.10 [facility] Comment on above: Performed By: #### C NARCISO, CP #### [facility] [address] [place] [address] [employer] And [employer] Man: Chidi Richter MD Basophils/100 WBC (Bld) 1 % Normal 0-2 [facility] Comment on above: Performed By: #### Kristen STUART, CP #### [facility] [address] [place] [address] [employer] And [employer] Man: Chidi Richter MD Eosinophils (Bld) [#/Vol] 0.08 10*3/uL Normal 0.00-0.44 [facility] Comment on above: Performed By: #### Kristen STUART, CP #### [facility] [address] [place] [address]. [place] [address] Body And Frame Man: Chidi Richter MD Eosinophils/100 WBC (Bld) 1 % Normal 1-4 [facility] Comment on above: Performed By: #### Kristen STUART, CP #### [facility] [address] [place] [address] [employer] And [employer] Man: Chidi Richter MD Erythrocyte distribution width (RBC) [Ratio] 13.0 % Normal 11.8-14.4 [facility] Comment on above: Performed By: #### C NARCISO, CP #### [facility] [address] [place] [address] [employer] And [employer] Man: Chidi Richter MD Hematocrit (Bld) [Volume fraction] 40.2 % Normal 36.3-47.1 [facility] Comment on above: Performed By: #### C BC, CP #### [facility] [address] [place] [address] [employer] And [employer] Man: Chidi Richter MD Hemoglobin (Bld) [Mass/Vol] 13.0 g/dL Normal 11.9-15.1 [facility] Comment on above: Performed By: #### C NARCISO, CP #### [facility] [address] [place] [address] [employer] And [employer] Man: Chidi Richter MD Immature granulocytes/100 WBC (Bld) 0 % Normal 0 [facility] Comment on above: Performed By: #### C NARCISO, CP #### [facility] [address] [place], [place] [address] Body And Frame Man: Chidi Richter MD Lymphocytes (Bld) [#/Vol] 2.68 10*3/uL Normal 1.10-3.70 [facility] Comment on above: Performed By: #### C NARCISO, CP #### [facility] [address] [place] [address] Body And Frame Man: Chidi Richter MD Lymphocytes/100 WBC (Bld) 44 % High 24-43 [facility] Comment on above: Performed By: #### C NARCISO, CP #### [facility] [address] [place] [address] Body And Frame Man: Chidi Richter MD MCH (RBC) [Entitic mass] 28.8 pg Normal 25.2-33.5 [facility] Comment on above: Performed By: #### C NARCISO, CP #### [facility] [address] [place] [address] Body And Frame Man: Chidi Richter MD MCHC (RBC) [Mass/Vol] 32.3 g/dL Normal 28.4-34.8 [facility] Comment on above: Performed By: #### C NARCISO, CP #### [facility] [facility] [place] [address] Body And Frame Man: Chidi Richter MD MCV (RBC) [Entitic vol] 89.1 fL Normal 82.6-102.9 [facility] Comment on above: Performed By: #### C NARCISO, CP #### [facility] [place] [address] Body And Frame Man: Cihdi Richter MD Monocytes (Bld) [#/Vol] 0.47 10*3/uL Normal 0.10-1.20 [facility] Comment on above: Performed By: #### C NARCISO, CP #### [facility] [place] [address] Body And Frame Man: Chidi Richter MD Monocytes/100 WBC (Bld) 8 % Normal 3-12 [facility] Comment on above: Performed By: #### C NARCISO, CP #### [facility] [address] [place] [address]. [place] [address] Body And Frame Man: Chidi Richter MD Neutrophil (Seg) 46 % Normal 36-65 [facility] Comment on above: Performed By: #### C NARCISO, CP #### [facility] [address] [place] [address]. [place] [address] Body And Frame Man: Chidi Richter MD NRBC Automated 0.0 per 100 WBC Normal 0.0 [facility] Comment on above: Performed By: #### C NARCISO, CP #### [facility] [address] [place] [address] Body And Frame Man: Chidi Richter MD Platelet mean volume (Bld) [Entitic vol] 10.2 fL Normal 8.1-13.5 [facility] Comment on above: Performed By: #### Kristen STUART, CP #### [facility] [address] [place] [address] Body And Frame Man: Chidi Richter MD Platelets (Bld) [#/Vol] 222 10*3/uL Normal 138-453 [facility] Comment on above: Performed By: #### Kristen STUART, CP #### [facility] [place] [address] Body And Frame Man: Chidi Richter MD RBC (Bld) [#/Vol] 4.51 10*6/uL Normal 3.95-5.11 [facility] Comment on above: Performed By: #### Kristen STUART, CP #### [facility] [address] [place] [address] Body And Frame Man: Chidi Richter MD WBC (Bld) [#/Vol] 6.2 10*3/uL Normal 3.5-11.3 [facility] Comment on above: Performed By: #### Kristen STUART, CP #### [facility] [address] [place], [place] [address]ia [facility] [place] [address] Body And Frame Man: Chidi Richter MD CT CERVICAL SPINE WO [...] Alonso Jones MD 12/01/23 Final result Normal [facility] CT Cervical spine WO contras ton 12-01-2023 Radiology Study observation (narrative) [facility] CT HEAD WO CONTRASTon 2023 CT HEAD [...] Alonso Jones MD 12/01/23 Final result Normal [facility] CT Head WO contraston 2023 Radiology Study observation (narrative) [facility] Comp Metabolic Profon 2023 Albumin [Mass/Vol] 4.4 g/dL Normal 3.5-5.2 [facility] Comment on above: Performed By: #### C NARCISO, CP #### [facility] [address] [place] [address] Body And Frame Man: Chidi Richter MD Alkaline Phos 53 U/L Normal 35-104 [facility] Comment on above: Performed By: #### C NARCISO, CP #### [facility] [address] [place], [place] [address] Body And Frame Man: Chidi Richter MD ALT [Catalytic activity/Vol] U/L Low 5-33 [facility] Comment on above: Performed By: #### C NARCISO, CP #### [facility] [address] [place] [address] Body And Frame Man: Chidi Richter MD Anion gap [Moles/Vol] 7 mmol/L Low 9-17 [facility] Comment on above: Performed By: #### C BC, CP #### [facility] [address] [place] [address] Body And Frame Man: Chidi Richter MD AST [Catalytic activity/Vol] 14 U/L Normal <32 [facility] Comment on above: Performed By: #### C NARCISO, CP #### [facility] [address] [place] [address] Body And Frame Man: Chidi Richter MD Bilirubin [Mass/Vol] 0.2 mg/dL Low 0.3-1.2 [facility] Comment on above: Performed By: #### C NARCISO, CP #### [facility] [address] [place] [address] Body And Frame Man: Chidi Richter MD BUN/CRE Ratio 16 Normal 9-20 [facility] Comment on above: Performed By: #### C NARCISO, CP #### [facility] [address] [place] [address] Body And Frame Man: Chidi Richter MD Calcium [Mass/Vol] 9.4 mg/dL Normal 8.6-10.4 [facility] Comment on above: Performed By: #### C BC, CP #### [facility] [address] [place] [address] Body And Frame Man: Chidi Richter MD Chloride [Moles/Vol] 104 mmol/L Normal 98-107 [facility] Comment on above: Performed By: #### C NARCISO, CP #### [facility] [address] [place] [address] Body And Frame Man: Chidi Richter MD CO2 [Moles/Vol] 31 mmol/L Normal 20-31 [facility] Comment on above: Performed By: #### C NARCISO, CP #### [facility] [address] [place] [address] Body And Frame Man: Chidi Richter MD Creatinine [Mass/Vol] 0.9 mg/dL Normal 0.5-0.9 [facility] Comment on above: Performed By: #### C NARCISO, CP #### [facility] [address] [place] [address] Body And Frame Man: Chidi Richter MD GFR/1.73 sq M.predicted among non-blacks MDRD (S/P/Bld) [Vol rate/Area] mL/min/{1.73_m2} Normal >60 [facility] Comment on above: Result Comment: These results [...] Performed By: #### C NARCISO, CP #### [facility] [address] [facility] [place] [address] Body And Frame Man: Chidi Richter MD Glucose [Mass/Vol] 95 mg/dL Normal 70-99 [facility] Comment on above: Performed By: #### C NARCISO, CP #### [facility] [address] [place] [address] Body And Frame Man: Chidi Richter MD Potassium [Moles/Vol] 4.1 mmol/L Normal 3.7-5.3 [facility] Comment on above: Performed By: #### C NARCISO, CP #### [facility] [address] [place] [address] Body And Frame Man: Chidi Richter MD Protein [Mass/Vol] 7.0 g/dL Normal 6.4-8.3 [facility] Comment on above: Performed By: #### C NARCISO, CP #### [facility] [address] [place] [address] Body And Frame Man: Chidi Richter MD Sodium [Moles/Vol] 142 mmol/L Normal 135-144 [facility] Comment on above: Performed By: #### Kristen STUART, CP #### [facility] [place] [address] Body And Frame Man: Chidi Richter MD Urea nitrogen [Mass/Vol] 14 mg/dL Normal 6-20 [facility] Comment on above: Performed By: #### Kristen STUART, CP #### [facility] [place] [address] Body And Frame Man: Chidi Richter MD No Panel Informationon 11-30 No acute abnormaliti es seen in the head and cervical spine. [facility] RIS CONSOLIDATED EXAMINATION: CT OF THE CERVICAL [...] There is no prevertebral soft tissue swelling. [facility] CONSOLIDATED Alonso Jones MD - 12/01/2023 EXAMINATION: [...] seen in the head and cervical spine. [facility] No Panel InformationOrdered By: Alonso Jones on 12-01-2023 [facility] Work Phone: CBC AND AUTO DIFFon 11-30-19 24 ABSOLUTE BASOPHIL 0.0 X10E9/L Normal 0.0-0.2 [facility] Comment on above: Performed By: #### C SLAVA, BMP #### [facility] ([id number]) [address], [address] [place] [address] ABSOLUTE NEUTROPHIL 4.3 X10E9/L Normal 1.5-6.6 [facility] Comment on above: Performed By: #### C BCA, BMP #### [facility] ([id number]) [address], [address] [place] [address] Basophils/100 WBC (Bld) 0.6 % Normal [facility] Comment on above: Performed By: #### C BCA, BMP #### [facility] ([id number]) [address], [address] [place] [address] Eosinophils (Bld) [#/Vol] 0.1 10*3/uL Normal 0.0-0.4 [facility] Comment on above: Performed By: #### C BCA, BMP #### [facility] ([id number]) [address], [address] [place] [address] Eosinophils/100 WBC (Bld) 1.1 % Normal [facility] Comment on above: Performed By: #### C BCA, BMP #### [facility] ([id number]) [address], [address] [place] [address] Erythrocyte distribution width (RBC) [Ratio] 14.5 % Normal 11.5-15.0 [facility] Comment on above: Performed By: #### C BCA, BMP #### [facility] ([id number]) [address], [address] [place] [address] Hematocrit (Bld) [Volume fraction] 38.7 % Normal 35-47 [facility] Comment on above: Performed By: #### C BCA, BMP #### [facility] ([id number]) [address], [address] [place] [address] Hemoglobin (Bld) [Mass/Vol] 13.3 g/dL Normal 11.7-15.5 [facility] Comment on above: Performed By: #### C BCA, BMP #### [facility] ([id number]) [address], [address] [place] [address] Lymphocytes (Bld) [#/Vol] 2.5 10*3/uL Normal 1.0-3.5 [facility] Comment on above: Performed By: #### C BCA, BMP #### [facility] ([id number]) [address], [address] [place] [address] Lymphocytes/100 WBC (Bld) 32.3 % Normal [facility] Comment on above: Performed By: #### C BCA, BMP #### [facility] ([id number]) [address], [address] [place] [address] MCH (RBC) [Entitic mass] 29.1 pg Normal 27-34 [facility] Comment on above: Performed By: #### C BCA, BMP #### [facility] ([id number]) [address], [address] [place] [address] MCHC (RBC) [Mass/Vol] 34.3 g/dL Normal 32-36 [facility] Comment on above: Performed By: #### C SLAVA, BMP #### [facility] ([id number]) [address], [address] [place] [address] MCV (RBC) [Entitic vol] 85 fL Normal 80-100 [facility] Comment on above: Performed By: #### C SLAVA, BMP #### [facility] ([id number]) [address], [address] [place] [address] Monocytes (Bld) [#/Vol] 0.7 10*3/uL Normal 0-0.9 [facility] Comment on above: Performed By: #### C SLAVA, BMP #### [facility] ([id number]) [address], [address] [place] [address] Monocytes/100 WBC (Bld) 9.6 % Normal [facility] Comment on above: Performed By: #### Kristen PEDERSEN, BMP #### [facility] ([id number]) [address], [address] [place] [address] Neutrophils/100 WBC (Bld) 56.4 % Normal [facility] Comment on above: Performed By: #### Kristen PEDERSEN, BMP #### [facility] ([id number]) [address], [address] [place] [address] Platelet mean volume (Bld) [Entitic vol] 7.9 fL Normal 7-12 [facility] Comment on above: Performed By: #### Kristen PEDERSEN, BMP #### [facility] ([id number]) [address], [address] [place] [address] Platelets (Bld) [#/Vol] 221 10*3/uL Normal 150-450 [facility] Comment on above: Performed By: #### C SLAVA, BMP #### [facility] ([id number]) [address], [address] [place] [address] RBC COUNT 4.57 X10E12/L Normal 3.80-5.20 [facility] Comment on above: Performed By: #### C BCA, BMP #### [facility] ([id number]) [address], [address] [place] [address] WBC (Bld) [#/Vol] 7.7 10*3/uL Normal 4.0-11.0 [facility] Comment on above: Performed By: #### C SLAVA, BMP #### [facility] ([id number]) [address], [address] [place] [address] COMPREHENSIVE METABOLIC PANE Basim 11-30-2023 Albumin [Mass/Vol] 4.4 g/dL Normal 3.2-5.3 [facility] Comment on above: Performed By: #### C BCA, BMP #### [facility] ([id number]) [address], [address] [place] [address] ALP [Catalytic activity/Vol] 45 U/L Normal 39-130 [facility] Comment on above: Performed By: #### C BCA, BMP #### [facility] ([id number]) [address], [address] [place] [address] ALT [Catalytic activity/Vol] 3 U/L Normal 0-31 [facility] Comment on above: Performed By: #### C BCA, BMP #### [facility] ([id number]) [address], [address] [place] [address] Anion gap [Moles/Vol] 8 mmol/L Normal 5-15 [facility] Comment on above: Performed By: #### C BCA, BMP #### [facility] ([id number]) [address], [address] [place] [address] AST [Catalytic activity/Vol] 14 U/L Normal 0-41 [facility] Comment on above: Performed By: #### C BCA, BMP #### [facility] ([id number]) [address] [address] [place] [address] Bilirubin [Mass/Vol] 0.6 mg/dL Normal 0.3-1.2 [facility] Comment on above: Performed By: #### C BCA, BMP #### [facility] ([id number]) [address], [address] [place] [address] Calcium [Mass/Vol] 9.7 mg/dL Normal 8.5-10.5 [facility] Comment on above: Performed By: #### C BCA, BMP #### [facility] ([id number]) [address], [address] [place] [address] Chloride [Moles/Vol] 103 mmol/L Normal 98-109 [facility] Comment on above: Performed By: #### C BCA, BMP #### [facility] ([id number]) [address], [address] [place] [address] CO2 [Moles/Vol] 31 mmol/L Normal 22-32 [facility] Comment on above: Performed By: #### C BCA, BMP #### [facility] ([id number]) [address], [address] [place] [address] Creatinine [Mass/Vol] 0.85 mg/dL Normal 0.40-1.00 [facility] Comment on above: Result Comment: METH OD TRACEABLE TO IDMS STANDARD Performed By: #### C BCA, BMP #### [facility] ([id number]) [address] [address] [place] [address] eGFR (CKD-EPI) NON-RACE DEPENDENT >90 Normal >59 [facility] Comment on above: Result Comment: Reported eGFR is based on the CKD-EPI 2020 equation that does not use a race coefficient. Performed By: #### C BCA, BMP #### [facility] ([id number]) [address], [address] [place] [address] Glucose [Mass/Vol] 98 mg/dL Normal 65-99 [facility] Comment on above: Performed By: #### C BCA, BMP #### [facility] ([id number]) [address], [address] [place] [address] Potassium [Moles/Vol] 4.1 mmol/L Normal 3.5-5.0 [facility] Comment on above: Performed By: #### C BCA, BMP #### [facility] ([id number]) [address] [place] [address] Protein [Mass/Vol] 6.9 g/dL Normal 6.0-8.0 [facility] Comment on above: Performed By: #### C BCA, BMP #### [facility] ([id number]) [address] [place] [address] Sodium [Moles/Vol] 142 mmol/L Normal 134-146 [facility] Comment on above: Performed By: #### C BCA, BMP #### [facility] ([id number]) [address] [place] [address] Urea nitrogen [Mass/Vol] 15 mg/dL Normal 5-23 [facility] Comment on above: Performed By: #### C BCA, BMP #### [facility] ([id number]) [address] [place] [address] CBC AND AUTO DIFFon -- 24 ABSOLUTE BASOPHIL 0.0 X10E9/L Normal 0.0-0.2 [facility] Comment on above: Performed By: #### C BCA, BMP #### [facility] ([id number]) [address], [address] [place] [address] ABSOLUTE NEUTROPHIL 2.3 X10E9/L Normal 1.5-6.6 [facility] Comment on above: Performed By: #### C BCA, BMP #### [facility] ([id number]) [address], [address] [place] [address] Basophils/100 WBC (Bld) 0.5 % Normal [facility] Comment on above: Performed By: #### C BCA, BMP #### [facility] ([id number]) [address] [place] [address] Eosinophils (Bld) [#/Vol] 0.1 10*3/uL Normal 0.0-0.4 [facility] Comment on above: Performed By: #### C BCA, BMP #### [facility] ([id number]) [address], [address] [place] [address] Eosinophils/100 WBC (Bld) 2.2 % Normal [facility] Comment on above: Performed By: #### C BCA, BMP #### [facility] ([id number]) [address], [address] [place] [address] Erythrocyte distribution width (RBC) [Ratio] 14.1 % Normal 11.5-15.0 [facility] Comment on above: Performed By: #### C BCA, BMP #### [facility] ([id number]) [address], [address] [place] [address] Hematocrit (Bld) [Volume fraction] 39.7 % Normal 35-47 [facility] Comment on above: Performed By: #### C BCA, BMP #### [facility] ([id number]) [address] [address] [place] [address] Hemoglobin (Bld) [Mass/Vol] 13.4 g/dL Normal 11.7-15.5 [facility] Comment on above: Performed By: #### C BCA, BMP #### [facility] ([id number]) [address] [address] [place] [address] Lymphocytes (Bld) [#/Vol] 2.6 10*3/uL Normal 1.0-3.5 [facility] Comment on above: Performed By: #### C SLAVA, BMP #### [facility] ([id number]) [address] [place] [address] Lymphocytes/100 WBC (Bld) 46.1 % Normal [facility] Comment on above: Performed By: #### C SLAVA, BMP #### [facility] ([id number]) [address], [address] [place] [address] MCH (RBC) [Entitic mass] 29.1 pg Normal 27-34 [facility] Comment on above: Performed By: #### C SLAVA, BMP #### [facility] ([id number]) [address], [address] [place] [address] MCHC (RBC) [Mass/Vol] 33.8 g/dL Normal 32-36 [facility] Comment on above: Performed By: #### C SLAVA, BMP #### [facility] ([id number]) [address] [place] [address] MCV (RBC) [Entitic vol] 86 fL Normal 80-100 [facility] Comment on above: Performed By: #### C SLAVA, BMP #### [facility] ([id number]) [address], [address] [place] [address] Monocytes (Bld) [#/Vol] 0.5 10*3/uL Normal 0-0.9 [facility] Comment on above: Performed By: #### C SLAVA, BMP #### [facility] ([id number]) [address] [place] [address] Monocytes/100 WBC (Bld) 9.7 % Normal [facility] Comment on above: Performed By: #### C SLAVA, BMP #### [facility] ([id number]) [address], [address] [place] [address] Neutrophils/100 WBC (Bld) 41.5 % Normal [facility] Comment on above: Performed By: #### C BCA, BMP #### [facility] ([id number]) [address] [place] [address] Platelet mean volume (Bld) [Entitic vol] 8.2 fL Normal 7-12 [facility] Comment on above: Performed By: #### C SLAVA, BMP #### [facility] ([id number]) [address] [place] [address] Platelets (Bld) [#/Vol] 205 10*3/uL Normal 150-450 [facility] Comment on above: Performed By: #### Kristen PEDERSEN, BMP #### [facility] ([id number]) [address], [address] [place] [address] RBC COUNT 4.60 X10E12/L Normal 3.80-5.20 [facility] Comment on above: Performed By: #### Kristen PEDERSEN, BMP #### [facility] ([id number]) [address] [address] [place] [address] WBC (Bld) [#/Vol] 5.7 10*3/uL Normal 4.0-11.0 [facility] Comment on above: Performed By: #### C SLAVA, BMP #### [facility] ([id number]) [address] [place] [address] COMPREHENSIVE METABOLIC PANE Basim 11-29-2023 Albumin [Mass/Vol] 4.2 g/dL Normal 3.2-5.3 [facility] Comment on above: Performed By: #### Kristen PEDERSEN, BMP #### [facility] ([id number]) [address], [address] [place] [address] ALP [Catalytic activity/Vol] 44 U/L Normal 39-130 [facility] Comment on above: Performed By: #### C BCA, BMP #### [facility] ([id number]) [address] [place] [address] ALT [Catalytic activity/Vol] 3 U/L Normal 0-31 [facility] Comment on above: Performed By: #### C BCA, BMP #### [facility] ([id number]) [address], [address] [place] [address] Anion gap [Moles/Vol] 9 mmol/L Normal 5-15 [facility] Comment on above: Performed By: #### C BCA, BMP #### [facility] ([id number]) [address], [address] [place] [address] AST [Catalytic activity/Vol] 15 U/L Normal 0-41 [facility] Comment on above: Performed By: #### C BCA, BMP #### [facility] ([id number]) [address] [place] [address] Bilirubin [Mass/Vol] 0.5 mg/dL Normal 0.3-1.2 [facility] Comment on above: Performed By: #### C BCA, BMP #### [facility] ([id number]) [address] [place] [address] Calcium [Mass/Vol] 9.6 mg/dL Normal 8.5-10.5 [facility] Comment on above: Performed By: #### C BCA, BMP #### [facility] ([id number]) [address], [address] [place] [address] Chloride [Moles/Vol] 104 mmol/L Normal 98-109 [facility] Comment on above: Performed By: #### C BCA, BMP #### [facility] ([id number]) [address] [place] [address] CO2 [Moles/Vol] 29 mmol/L Normal 22-32 [facility] Comment on above: Performed By: #### C SLAVA, BMP #### [facility] ([id number]) [address] [address] [place] [address] Creatinine [Mass/Vol] 0.92 mg/dL Normal 0.40-1.00 [facility] Comment on above: Result Comment: METH OD TRACEABLE TO IDMS STANDARD Performed By: #### C SLAVA, BMP #### [facility] ([id number]) [address] [address] eGFR (CKD-EPI) NON-RACE DEPENDENT >90 Normal >59 [facility] Comment on above: Result Comment: Reported eGFR is based on the CKD-EPI 2020 equation that does not use a race coefficient. Performed By: #### C SLAVA, BMP #### [facility] ([id number]) [address] [address] Glucose [Mass/Vol] 92 mg/dL Normal 65-99 [facility] Comment on above: Performed By: #### C SLAVA, BMP #### [facility] ([id number]) [address] [address] Potassium [Moles/Vol] 4.0 mmol/L Normal 3.5-5.0 [facility] Comment on above: Performed By: #### C SLAVA, BMP #### [facility] ([id number]) [address] [address] Protein [Mass/Vol] 7.0 g/dL Normal 6.0-8.0 [facility] Comment on above: Performed By: #### C BCA, BMP #### [facility] ([id number]) [address] [address] Sodium [Moles/Vol] 142 mmol/L Normal 134-146 [facility] Comment on above: Performed By: #### C SLAVA, BMP #### [facility] ([id number]) [address] [place] [address] Urea nitrogen [Mass/Vol] 17 mg/dL Normal 5-23 [facility] Comment on above: Performed By: #### C SLAVA, BMP #### [facility] ([id number]) [address] [place] [address] Glucose Glucometer (BldC) [M ass/Vol]on 11-29-2023 Glucose [Mass/Vol] 84 mg/dL Normal 65-99 [facility] CBC AND AUTO DIFFon 11-28-19 ABSOLUTE BASOPHIL 0.0 X10E9/L Normal 0.0-0.2 [facility] Comment on above: Performed By: #### C SLAVA, BMP #### [facility] ([id number]) [address], [address] [place] [address] ABSOLUTE NEUTROPHIL 3.0 X10E9/L Normal 1.5-6.6 [facility] Comment on above: Performed By: #### C SLAVA, BMP #### [facility] ([id number]) [address], [address] [place] [address] Basophils/100 WBC (Bld) 0.6 % Normal [facility] Comment on above: Performed By: #### C SLAVA, BMP #### [facility] ([id number]) [address], [address] [place] [address] Eosinophils (Bld) [#/Vol] 0.1 10*3/uL Normal 0.0-0.4 [facility] Comment on above: Performed By: #### C SLAVA, BMP #### [facility] ([id number]) [address], [address] [place] [address] Eosinophils/100 WBC (Bld) 1.0 % Normal [facility] Comment on above: Performed By: #### C BCA, BMP #### [facility] ([id number]) [address], [address] [place] [address] Erythrocyte distribution width (RBC) [Ratio] 14.6 % Normal 11.5-15.0 [facility] Comment on above: Performed By: #### C BCA, BMP #### [facility] ([id number]) [address], [address] [place] [address] Hematocrit (Bld) [Volume fraction] 40.1 % Normal 35-47 [facility] Comment on above: Performed By: #### C SLAVA, BMP #### [facility] ([id number]) [address], [address] [place] [address] Hemoglobin (Bld) [Mass/Vol] 13.7 g/dL Normal 11.7-15.5 [facility] Comment on above: Performed By: #### C SLAVA, BMP #### [facility] ([id number]) [address], [address] [place] [address] Lymphocytes (Bld) [#/Vol] 2.8 10*3/uL Normal 1.0-3.5 [facility] Comment on above: Performed By: #### C BCA, BMP #### [facility] ([id number]) [address], [address] [place] [address] Lymphocytes/100 WBC (Bld) 43.5 % Normal [facility] Comment on above: Performed By: #### C BCA, BMP #### [facility] ([id number]) [address], [address] [place] [address] MCH (RBC) [Entitic mass] 29.3 pg Normal 27-34 [facility] Comment on above: Performed By: #### C BCA, BMP #### [facility] ([id number]) [address], [address] [place] [address] MCHC (RBC) [Mass/Vol] 34.1 g/dL Normal 32-36 [facility] Comment on above: Performed By: #### C SLAVA, BMP #### [facility] ([id number]) [address], [address] [place] [address] MCV (RBC) [Entitic vol] 86 fL Normal 80-100 [facility] Comment on above: Performed By: #### C SLAVA, BMP #### [facility] ([id number]) [address], [address] [place] [address] Monocytes (Bld) [#/Vol] 0.5 10*3/uL Normal 0-0.9 [facility] Comment on above: Performed By: #### C SLAVA, BMP #### [facility] ([id number]) [address], [address] [place] [address] Monocytes/100 WBC (Bld) 8.2 % Normal [facility] Comment on above: Performed By: #### C SLAVA, BMP #### [facility] ([id number]) [address], [address] [place] [address] Neutrophils/100 WBC (Bld) 46.7 % Normal [facility] Comment on above: Performed By: #### C BCA, BMP #### [facility] ([id number]) [address], [address] [place] [address] Platelet mean volume (Bld) [Entitic vol] 8.8 fL Normal 7-12 [facility] Comment on above: Performed By: #### C BCA, BMP #### [facility] ([id number]) [address], [address] [place] [address] Platelets (Bld) [#/Vol] 220 10*3/uL Normal 150-450 [facility] Comment on above: Performed By: #### C BCA, BMP #### [facility] ([id number]) [address], [address] [place] [address] RBC COUNT 4.67 X10E12/L Normal 3.80-5.20 [facility] Comment on above: Performed By: #### C SLAVA, BMP #### [facility] ([id number]) [address], [address] [place] [address] WBC (Bld) [#/Vol] 6.4 10*3/uL Normal 4.0-11.0 [facility] Comment on above: Performed By: #### C SLAVA, BMP #### [facility] ([id number]) [address], [address] [place] [address] COMPREHENSIVE METABOLIC PANE Basim 11-28-2023 Albumin [Mass/Vol] 4.8 g/dL Normal 3.2-5.3 [facility] Comment on above: Performed By: #### C SLAVA, BMP #### [facility] ([id number]) [address], [address] [place] [address] ALP [Catalytic activity/Vol] 41 U/L Normal 39-130 [facility] Comment on above: Performed By: #### C SLAVA, BMP #### [facility] ([id number]) [address], [address] [place] [address] ALT [Catalytic activity/Vol] 4 U/L Normal 0-31 [facility] Comment on above: Performed By: #### C SLAVA, BMP #### [facility] ([id number]) [address], [address] [place] [address] Anion gap [Moles/Vol] 12 mmol/L Normal 5-15 [facility] Comment on above: Performed By: #### C BCA, BMP #### [facility] ([id number]) [address], [address] [place] [address] AST [Catalytic activity/Vol] 29 U/L Normal 0-41 [facility] Comment on above: Performed By: #### C BCA, BMP #### [facility] ([id number]) [address], [address] [place] [address] Bilirubin [Mass/Vol] 0.8 mg/dL Normal 0.3-1.2 [facility] Comment on above: Performed By: #### C BCA, BMP #### [facility] ([id number]) [address], [address] [place] [address] Calcium [Mass/Vol] 9.4 mg/dL Normal 8.5-10.5 [facility] Comment on above: Performed By: #### C BCA, BMP #### [facility] ([id number]) [address], [address] [place] [address] Chloride [Moles/Vol] 104 mmol/L Normal 98-109 [facility] Comment on above: Performed By: #### C BCA, BMP #### [facility] ([id number]) [address], [address] [place] [address] CO2 [Moles/Vol] 25 mmol/L Normal 22-32 [facility] Comment on above: Performed By: #### C BCA, BMP #### [facility] ([id number]) [address], [address] [place] [address] Creatinine [Mass/Vol] 0.82 mg/dL Normal 0.40-1.00 [facility] Comment on above: Result Comment: METH OD TRACEABLE TO IDMS STANDARD Performed By: #### C BCA, BMP #### [facility] ([id number]) [address] [address] [place] [address] eGFR (CKD-EPI) NON-RACE DEPENDENT >90 Normal >59 [facility] Comment on above: Result Comment: Reported eGFR is based on the CKD-EPI 2020 equation that does not use a race coefficient. Performed By: #### C BCA, BMP #### [facility] ([id number]) [address], [address] [place] [address] Glucose [Mass/Vol] 81 mg/dL Normal 65-99 [facility] Comment on above: Performed By: #### C SLAVA, BMP #### [facility] ([id number]) [address], [address] [place] [address] Potassium [Moles/Vol] 5.2 mmol/L High 3.5-5.0 [facility] Comment on above: Result Comment: SPEC IMEN HEMOLYZED, RESULTS INCREASED MARKEDLY HEMOLYZED Performed By: #### C SLAVA, BMP #### [facility] ([id number]) [address] [place] [address] Protein [Mass/Vol] 7.4 g/dL Normal 6.0-8.0 [facility] Comment on above: Performed By: #### C SLAVA, BMP #### [facility] ([id number]) [address] [place] [address] Sodium [Moles/Vol] 141 mmol/L Normal 134-146 [facility] Comment on above: Result Comment: RESU LTS QUESTIONABLE DUE TO HEMOLYSIS MARKEDLY HEMOLYZED Performed By: #### C SLAVA, BMP #### [facility] ([id number]) [address] [place] [address] Urea nitrogen [Mass/Vol] 21 mg/dL Normal 5-23 [facility] Comment on above: Performed By: #### C SLAVA, BMP #### [facility] ([id number]) [address], [address] [place] [address] CBC AND AUTO DIFFon 11-27-19 24 ABSOLUTE BASOPHIL 0.0 X10E9/L Normal 0.0-0.2 [facility] Comment on above: Performed By: #### C BCA, CMP ####[facility] ([id number])[address], [place] [address] ABSOLUTE NEUTROPHIL 4.7 X10E9/L Normal 1.5-6.6 [facility] Comment on above: Performed By: #### C SLAVA, CMP ####[facility] ([id number])[address], [place] [address] Basophils/100 WBC (Bld) 0.5 % Normal [facility] Comment on above: Performed By: #### C SLAVA, CMP ####[facility] ([id number])[address] [address], [place] [address] Eosinophils (Bld) [#/Vol] 0.1 10*3/uL Normal 0.0-0.4 [facility] Comment on above: Performed By: #### C SLAVA, CMP ####[facility] ([id number])[address] [address], [place] [address] Eosinophils/100 WBC (Bld) 1.3 % Normal [facility] Comment on above: Performed By: #### C SLAVA, CMP ####[facility] ([id number])[address] [address] Erythrocyte distribution width (RBC) [Ratio] 14.1 % Normal 11.5-15.0 [facility] Comment on above: Performed By: #### C SLAVA, CMP ####[facility] ([id number])[address] [address] Hematocrit (Bld) [Volume fraction] 41.2 % Normal 35-47 [facility] Comment on above: Performed By: #### C SLAVA, CMP ####[facility] ([id number])[address] [address] Hemoglobin (Bld) [Mass/Vol] 13.9 g/dL Normal 11.7-15.5 [facility] Comment on above: Performed By: #### C BCA, CMP ####[facility] ([id number])[address] [place] [address] Lymphocytes (Bld) [#/Vol] 3.2 10*3/uL Normal 1.0-3.5 [facility] Comment on above: Performed By: #### C BCA, CMP ####[facility] ([id number])[address] [place] [address] Lymphocytes/100 WBC (Bld) 36.0 % Normal [facility] Comment on above: Performed By: #### C BCA, CMP ####[facility] ([id number])[address] [place] [address] MCH (RBC) [Entitic mass] 28.8 pg Normal 27-34 [facility] Comment on above: Performed By: #### C BCA, CMP ####[facility] ([id number])[address] [place] [address] MCHC (RBC) [Mass/Vol] 33.6 g/dL Normal 32-36 [facility] Comment on above: Performed By: #### C BCA, CMP ####[facility] ([id number])[address] [place] [address] MCV (RBC) [Entitic vol] 86 fL Normal 80-100 [facility] Comment on above: Performed By: #### C BCA, CMP ####[facility] ([id number])[address] [place] [address] Monocytes (Bld) [#/Vol] 0.7 10*3/uL Normal 0-0.9 [facility] Comment on above: Performed By: #### C BCA, CMP ####[facility] ([id number])[address] [place] [address] Monocytes/100 WBC (Bld) 8.3 % Normal [facility] Comment on above: Performed By: #### C BCA, CMP ####[facility] ([id number])[address] [address], [place] [address] Neutrophils/100 WBC (Bld) 53.9 % Normal [facility] Comment on above: Performed By: #### C BCA, CMP ####[facility] ([id number])[address] [address], [place] [address] Platelet mean volume (Bld) [Entitic vol] 8.2 fL Normal 7-12 [facility] Comment on above: Performed By: #### C BCA, CMP ####[facility] ([id number])[address] [address] [place] [address] Platelets (Bld) [#/Vol] 258 10*3/uL Normal 150-450 [facility] Comment on above: Performed By: #### C BCA, CMP ####[facility] ([id number])[address] [address] [address] RBC COUNT 4.81 X10E12/L Normal 3.80-5.20 [facility] Comment on above: Performed By: #### C BCA, CMP ####[facility] ([id number])[address] [address] [place] [address] WBC (Bld) [#/Vol] 8.8 10*3/uL Normal 4.0-11.0 [facility] Comment on above: Performed By: #### C BCA, CMP ####[facility] ([id number])[address] [place] [address] COMPREHENSIVE METABOLIC PANE Basim 11-27-2023 Albumin [Mass/Vol] 4.7 g/dL Normal 3.2-5.3 [facility] Comment on above: Performed By: #### C BCA, BMP #### [facility] ([id number]) [address], [address] [place] [address] ALP [Catalytic activity/Vol] 48 U/L Normal 39-130 [facility] Comment on above: Performed By: #### C BCA, BMP #### [facility] ([id number]) [address], [address] [place] [address] ALT [Catalytic activity/Vol] 4 U/L Normal 0-31 [facility] Comment on above: Performed By: #### C BCA, BMP #### [facility] ([id number]) [address], [address] [place] [address] Anion gap [Moles/Vol] 11 mmol/L Normal 5-15 [facility] Comment on above: Performed By: #### C BCA, BMP #### [facility] ([id number]) [address], [address] [place] [address] AST [Catalytic activity/Vol] 15 U/L Normal 0-41 [facility] Comment on above: Performed By: #### C BCA, BMP #### [facility] ([id number]) [address], [address] [place] [address] Bilirubin [Mass/Vol] 0.6 mg/dL Normal 0.3-1.2 [facility] Comment on above: Performed By: #### C BCA, BMP #### [facility] ([id number]) [address], [address] [place] [address] Calcium [Mass/Vol] 9.8 mg/dL Normal 8.5-10.5 [facility] Comment on above: Performed By: #### C BCA, BMP #### [facility] ([id number]) [address], [address] [place] [address] Chloride [Moles/Vol] 103 mmol/L Normal 98-109 [facility] Comment on above: Performed By: #### C BCA, BMP #### [facility] ([id number]) [address], [address] [place] [address] CO2 [Moles/Vol] 24 mmol/L Normal 22-32 [facility] Comment on above: Performed By: #### C SLAVA, BMP #### [facility] ([id number]) [address], [address] [place] [address] Creatinine [Mass/Vol] 0.76 mg/dL Normal 0.40-1.00 [facility] Comment on above: Result Comment: METH OD TRACEABLE TO IDMS STANDARD Performed By: #### C SLAVA, BMP #### [facility] ([id number]) [address] [address] [place] [address] eGFR (CKD-EPI) NON-RACE DEPENDENT >90 Normal >59 [facility] Comment on above: Result Comment: Reported eGFR is based on the CKD-EPI 2020 equation that does not use a race coefficient. Performed By: #### C SLAVA, BMP #### [facility] ([id number]) [address] [address] [place] [address] Glucose [Mass/Vol] 83 mg/dL Normal 65-99 [facility] Comment on above: Performed By: #### C BCA, BMP #### [facility] ([id number]) [address] [address] [place] [address] Potassium [Moles/Vol] 3.8 mmol/L Normal 3.5-5.0 [facility] Comment on above: Performed By: #### C BCA, BMP #### [facility] ([id number]) [address] [address] [place] [address] Protein [Mass/Vol] 7.4 g/dL Normal 6.0-8.0 [facility] Comment on above: Performed By: #### C BCA, BMP #### [facility] ([id number]) [address], [address] [place] [address] Sodium [Moles/Vol] 138 mmol/L Normal 134-146 [facility] Comment on above: Performed By: #### C BCA, BMP #### [facility] ([id number]) [address], [address] [place] [address] Urea nitrogen [Mass/Vol] 22 mg/dL Normal 5-23 [facility] Comment on above: Performed By: #### C BCA, BMP #### [facility] ([id number]) [address], [address] [place] [address] CBC AND AUTO DIFFon 11-26-19 24 ABSOLUTE BASOPHIL 0.0 X10E9/L Normal 0.0-0.2 [facility] Comment on above: Performed By: #### C BCA, CMP ####[facility] ([id number])[address] [address] [place] [address] ABSOLUTE NEUTROPHIL 3.0 X10E9/L Normal 1.5-6.6 [facility] Comment on above: Performed By: #### C BCA, CMP ####[facility] ([id number])[address] [address] Basophils/100 WBC (Bld) 0.7 % Normal [facility] Comment on above: Performed By: #### C BCA, CMP ####[facility] ([id number])[address] [address] Eosinophils (Bld) [#/Vol] 0.0 10*3/uL Normal 0.0-0.4 [facility] Comment on above: Performed By: #### C BCA, CMP ####[facility] ([id number])[address] [address] Eosinophils/100 WBC (Bld) 0.7 % Normal [facility] Comment on above: Performed By: #### C BCA, CMP ####[facility] ([id number])[address], [place] [address] Erythrocyte distribution width (RBC) [Ratio] 14.6 % Normal 11.5-15.0 [facility] Comment on above: Performed By: #### C BCA, CMP ####[facility] ([id number])[address], [place] [address] Hematocrit (Bld) [Volume fraction] 41.1 % Normal 35-47 [facility] Comment on above: Performed By: #### C SLAVA, CMP ####[facility] ([id number])[address] [place] [address] Hemoglobin (Bld) [Mass/Vol] 13.6 g/dL Normal 11.7-15.5 [facility] Comment on above: Performed By: #### C SLAVA, CMP ####[facility] ([id number])[address] [address] [place] [address] Lymphocytes (Bld) [#/Vol] 2.7 10*3/uL Normal 1.0-3.5 [facility] Comment on above: Performed By: #### C SLAVA, CMP ####[facility] ([id number])[address] [place] [address] Lymphocytes/100 WBC (Bld) 41.7 % Normal [facility] Comment on above: Performed By: #### C SLAVA, CMP ####[facility] ([id number])[address] [address] [place] [address] MCH (RBC) [Entitic mass] 28.9 pg Normal 27-34 [facility] Comment on above: Performed By: #### C BCA, CMP ####[facility] ([id number])[address], [place] [address] MCHC (RBC) [Mass/Vol] 33.2 g/dL Normal 32-36 [facility] Comment on above: Performed By: #### C SLAVA, CMP ####[facility] ([id number])[address], [place] [address] MCV (RBC) [Entitic vol] 87 fL Normal 80-100 [facility] Comment on above: Performed By: #### C SLAVA, CMP ####[facility] ([id number])[address], [place] [address] Monocytes (Bld) [#/Vol] 0.7 10*3/uL Normal 0-0.9 [facility] Comment on above: Performed By: #### C SLAVA, CMP ####[facility] ([id number])[address], [place] [address] Monocytes/100 WBC (Bld) 10.5 % Normal [facility] Comment on above: Performed By: #### C SLAVA, CMP ####[facility] ([id number])[address], [place] [address] Neutrophils/100 WBC (Bld) 46.4 % Normal [facility] Comment on above: Performed By: #### C SLAVA, CMP ####[facility] ([id number])[address], [place] [address] Platelet mean volume (Bld) [Entitic vol] 8.2 fL Normal 7-12 [facility] Comment on above: Performed By: #### C SLAVA, CMP ####[facility] ([id number])[address], [address], [place] [address] Platelets (Bld) [#/Vol] 226 10*3/uL Normal 150-450 [facility] Comment on above: Performed By: #### C SLAVA, CMP ####[facility] ([id number])[address], [place] [address] RBC COUNT 4.72 X10E12/L Normal 3.80-5.20 [facility] Comment on above: Performed By: #### C BCA, CMP ####[facility] ([id number])[address], [address] [place] [id number] WBC (Bld) [#/Vol] 6.6 10*3/uL Normal 4.0-11.0 [facility] Comment on above: Performed By: #### C BCA, CMP ####[facility] ([id number])[address], [address] [address] COMPREHENSIVE METABOLIC PANE Basim 11-26-2023 Albumin [Mass/Vol] 4.7 g/dL Normal 3.2-5.3 [facility] Comment on above: Performed By: #### C BCA, CMP ####[facility] ([id number])[address], [address], [place] [address] ALP [Catalytic activity/Vol] 48 U/L Normal 39-130 [facility] Comment on above: Performed By: #### C BCA, CMP ####[facility] ([id number])[address], [address] [place] [address] ALT [Catalytic activity/Vol] 4 U/L Normal 0-31 [facility] Comment on above: Performed By: #### C BCA, CMP ####[facility] ([id number])[address], [address] [address] Anion gap [Moles/Vol] 12 mmol/L Normal 5-15 [facility] Comment on above: Performed By: #### C BCA, CMP ####[facility] ([id number])[address] [address] [place] [address] AST [Catalytic activity/Vol] 14 U/L Normal 0-41 [facility] Comment on above: Performed By: #### C BCA, CMP ####[facility] ([id number])[address] [address], [place] [address] Bilirubin [Mass/Vol] 0.8 mg/dL Normal 0.3-1.2 [facility] Comment on above: Performed By: #### C BCA, CMP ####[facility] ([id number])[address] [address], [place] [address] Calcium [Mass/Vol] 9.8 mg/dL Normal 8.5-10.5 [facility] Comment on above: Performed By: #### C BCA, CMP ####[facility] ([id number])[address] [address], [place] [address] Chloride [Moles/Vol] 106 mmol/L Normal 98-109 [facility] Comment on above: Performed By: #### C BCA, CMP ####[facility] ([id number])[address] [address], [place] [address] CO2 [Moles/Vol] 24 mmol/L Normal 22-32 [facility] Comment on above: Performed By: #### C BCA, CMP ####[facility] ([id number])[address] [address], [place] [address] Creatinine [Mass/Vol] 0.78 mg/dL Normal 0.40-1.00 [facility] Comment on above: Result Comment: METH OD TRACEABLE TO IDMS STANDARD Performed By: #### C BCA, CMP ####[facility] ([id number])[address] [address], [place] [address] eGFR (CKD-EPI) NON-RACE DEPENDENT >90 Normal >59 [facility] Comment on above: Result Comment: Reported eGFR is based on the CKD-EPI 2020 equation that does not use a race coefficient. Performed By: #### C BCA, CMP ####[facility] ([id number])[address] [address], [place] [address] Glucose [Mass/Vol] 73 mg/dL Normal 65-99 [facility] Comment on above: Performed By: #### C BCA, CMP ####[facility] ([id number])[address], [address], [place] [address] Potassium [Moles/Vol] 4.3 mmol/L Normal 3.5-5.0 [facility] Comment on above: Performed By: #### C BCA, CMP ####[facility] ([id number])[address], [place] [address] Protein [Mass/Vol] 7.3 g/dL Normal 6.0-8.0 [facility] Comment on above: Performed By: #### C BCA, CMP ####[facility] ([id number])[address], [place] [address] Sodium [Moles/Vol] 142 mmol/L Normal 134-146 [facility] Comment on above: Performed By: #### C BCA, CMP ####[facility] ([id number])[address], [address] [place] [address] Urea nitrogen [Mass/Vol] 16 mg/dL Normal 5-23 [facility] Comment on above: Performed By: #### C BCA, CMP ####[facility] ([id number])[address], [address] [place] [address] CBC AND AUTO DIFFon 11-25-19 24 ABSOLUTE BASOPHIL 0.0 X10E9/L Normal 0.0-0.2 [facility] Comment on above: Performed By: #### C MP, CBCA ####[facility] ([id number])[address], [address] [place] [address] ABSOLUTE NEUTROPHIL 4.0 X10E9/L Normal 1.5-6.6 [facility] Comment on above: Performed By: #### C MP, CBCA ####[facility] ([id number])[address] [address] [place] [address] Basophils/100 WBC (Bld) 0.4 % Normal [facility] Comment on above: Performed By: #### C MP, CBCA ####[facility] ([id number])[address] [address] [place] [address] Eosinophils (Bld) [#/Vol] 0.0 10*3/uL Normal 0.0-0.4 [facility] Comment on above: Performed By: #### C MP, CBCA ####[facility] ([id number])[address] [address] [place] [address] Eosinophils/100 WBC (Bld) 0.5 % Normal [facility] Comment on above: Performed By: #### C MP, CBCA ####[facility] ([id number])[address] [address] [place] [address] Erythrocyte distribution width (RBC) [Ratio] 14.6 % Normal 11.5-15.0 [facility] Comment on above: Performed By: #### C DANIEL, CBCA ####[facility] ([id number])[address] [address] [place] [address] Hematocrit (Bld) [Volume fraction] 40.1 % Normal 35-47 [facility] Comment on above: Performed By: #### C MP, CBCA ####[facility] ([id number])[address] [address] [place] [address] Hemoglobin (Bld) [Mass/Vol] 13.6 g/dL Normal 11.7-15.5 [facility] Comment on above: Performed By: #### C MP, CBCA ####[facility] ([id number])[address] [address] [place] [address] Lymphocytes (Bld) [#/Vol] 2.7 10*3/uL Normal 1.0-3.5 [facility] Comment on above: Performed By: #### C MP, CBCA ####[facility] ([id number])[address] [place] [address] Lymphocytes/100 WBC (Bld) 37.3 % Normal [facility] Comment on above: Performed By: #### C MP, CBCA ####[facility] ([id number])[address], [address] [place] [address] MCH (RBC) [Entitic mass] 29.0 pg Normal 27-34 [facility] Comment on above: Performed By: #### C MP, CBCA ####[facility] ([id number])[address], [address] [place] [address] MCHC (RBC) [Mass/Vol] 33.8 g/dL Normal 32-36 [facility] Comment on above: Performed By: #### C MP, CBCA ####[facility] ([id number])[address], [address] [place] [address] MCV (RBC) [Entitic vol] 86 fL Normal 80-100 [facility] Comment on above: Performed By: #### C MP, CBCA ####[facility] ([id number])[address] [address] [place] [address] Monocytes (Bld) [#/Vol] 0.5 10*3/uL Normal 0-0.9 [facility] Comment on above: Performed By: #### C MP, CBCA ####[facility] ([id number])[address], [address] [place] [address] Monocytes/100 WBC (Bld) 6.8 % Normal [facility] Comment on above: Performed By: #### C MP, CBCA ####[facility] ([id number])[address], [address] [place] [address] Neutrophils/100 WBC (Bld) 55.0 % Normal [facility] Comment on above: Performed By: #### C DANIEL, CBCA ####[facility] ([id number])[address] [address] Platelet mean volume (Bld) [Entitic vol] 8.0 fL Normal 7-12 [facility] Comment on above: Performed By: #### C MP, CBCA ####[facility] ([id number])[address], [address] [place] [address] Platelets (Bld) [#/Vol] 239 10*3/uL Normal 150-450 [facility] Comment on above: Performed By: #### C MP, CBCA ####[facility] ([id number])[address] [address] RBC COUNT 4.67 X10E12/L Normal 3.80-5.20 [facility] Comment on above: Performed By: #### C DANIEL, CBCA ####[facility] ([id number])[address] [address] WBC (Bld) [#/Vol] 7.3 10*3/uL Normal 4.0-11.0 [facility] Comment on above: Performed By: #### C DANIEL, CBCA ####[facility] ([id number])[address] [address] [place] [address], [place] [address] COMPREHENSIVE METABOLIC PANE Basim 11-25-2023 Albumin [Mass/Vol] 4.4 g/dL Normal 3.2-5.3 [facility] Comment on above: Performed By: #### C MP, CBCA ####[facility] ([id number])[address] [address] [place] [address], [place] [address] ALP [Catalytic activity/Vol] 46 U/L Normal 39-130 [facility] Comment on above: Performed By: #### C DANIEL, CBCA ####[facility] ([id number])[address], [address], [place] [address] ALT [Catalytic activity/Vol] 5 U/L Normal 0-31 [facility] Comment on above: Performed By: #### C MP, CBCA ####[facility] ([id number])[address], [place] [address] Anion gap [Moles/Vol] 7 mmol/L Normal 5-15 [facility] Comment on above: Performed By: #### C DANIEL, CBCA ####[facility] ([id number])[address], [address], [place] [address] AST [Catalytic activity/Vol] 15 U/L Normal 0-41 [facility] Comment on above: Performed By: #### C DANIEL, CBCA ####[facility] ([id number])[address], [place] [address] Bilirubin [Mass/Vol] 0.7 mg/dL Normal 0.3-1.2 [facility] Comment on above: Performed By: #### C DANIEL, CBCA ####[facility] ([id number])[address], [place] [address] Calcium [Mass/Vol] 9.5 mg/dL Normal 8.5-10.5 [facility] Comment on above: Performed By: #### C DANIEL, CBCA ####[facility] ([id number])[address], [address], [place] [address] Chloride [Moles/Vol] 108 mmol/L Normal 98-109 [facility] Comment on above: Performed By: #### C DANIEL, CBCA ####[facility] ([id number])[address], [address], [place] [address] CO2 [Moles/Vol] 28 mmol/L Normal 22-32 [facility] Comment on above: Performed By: #### C JAILYN SANCHEZ ####[facility] ([id number])[address] [address] [address] Creatinine [Mass/Vol] 0.78 mg/dL Normal 0.40-1.00 [facility] Comment on above: Result Comment: METH OD TRACEABLE TO IDMS STANDARD Performed By: #### C JAILYN SANCHZE ####[facility] ([id number])[address] [address] [address] eGFR (CKD-EPI) NON-RACE DEPENDENT >90 Normal >59 [facility] Comment on above: Result Comment: Reported eGFR is based on the CKD-EPI 2020 equation that does not use a race coefficient. Performed By: #### C JAILYN SANCHEZ ####[facility] ([id number])[address] [address] [place] [address] Glucose [Mass/Vol] 102 mg/dL High 65-99 [facility] Comment on above: Performed By: #### C JAILYN SANCHEZ ####[facility] ([id number])[address] [address] [place] [address] Potassium [Moles/Vol] 4.1 mmol/L Normal 3.5-5.0 [facility] Comment on above: Performed By: #### C JAILYN SANCHEZ ####[facility] ([id number])[address] [address] [place] [address] Protein [Mass/Vol] 7.5 g/dL Normal 6.0-8.0 [facility] Comment on above: Performed By: #### C JAILYN SANCHEZ ####[facility] ([id number])[address] [address] [place] [address] Sodium [Moles/Vol] 143 mmol/L Normal 134-146 [facility] Comment on above: Performed By: #### C MP, CBCA ####[facility] ([id number])[address], [address] [place] [address] Urea nitrogen [Mass/Vol] 11 mg/dL Normal 5-23 [facility] Comment on above: Performed By: #### C MP, CBCA ####[facility] ([id number])[address], [address] [place] [address] DRUG SCREEN, URINEon 024 AMPHETAMINE/METHAMP Negative Normal NEG [facility] Comment on above: Result Comment: AMPH /METH screening cut off = 1000 ng/mL Performed By: #### D HIGGINS ####[facility] ([id number])[address], [address] [place] [address] BARBITURATES Negative Normal NEG [facility] Comment on above: Result Comment: Dominique iturates screening cut off value = 200 ng/mL Performed By: #### D HIGGINS ####[facility] ([id number])[address], [address] [place] [address] BENZODIAZEPINES Positive Abnormal NEG [facility] Comment on above: Result Comment: Conf irmation available upon request. Benzodiazepines screening cut off value = 200 ng/mL Performed By: #### D HIGGINS ####[facility] ([id number])[address], [address] [place] [address] CANNABINOIDS Positive Abnormal NEG [facility] Comment on above: Result Comment: Conf irmation available upon request. Cannabinoids/THC screening cut off value = 50 ng/mL Performed By: #### D HIGGINS ####[facility] ([id number])[address], [address] [place] [address] COCAINE METABOLITE Negative Normal NEG [facility] Comment on above: Result Comment: Coca ine screening cut off value = 300 ng/mL Performed By: #### D HIGGINS ####[facility] ([id number])[address] [address] [place] [address] ECSTASY Negative Normal [facility] Comment on above: Result Comment: Ecst asy screening cut off value = 500 ng/mL This report is intended for use in clinical monitoring or management of patients. Performed By: #### D HIGGINS ####[facility] ([id number])[address] [address] [place] [address] METHADONE Negative Normal [facility] Comment on above: Result Comment: Meth adone screening cut off value = 300 ng/mL. Performed By: #### D HIGGINS ####[facility] ([id number])[address] [address] [place] [address] OPIATES Negative [facility] Comment on above: Result Comment: Opia mamta screening cut off value = 300 ng/mL NOTE: This test is used for the detection of codeine, hydrocodone (>1000 ng/mL), morphine and hydromorphone (>900 ng/mL) in urine. Performed By: #### D HIGGINS ####[facility] ([id number])[address] [address] [place] [address] OXYCODONE Negative Normal [facility] Comment on above: Result Comment: Oxyc odone screening cut off value = 300 ng/mL NOTE: This test is used for the detection of oxycodone and oxymorphone in urine. Performed By: #### D HIGGINS ####[facility] ([id number])[address] [address] [place] [address] PHENCYCLIDINE Negative Normal [facility] Comment on above: Result Comment: Phen cyclidine screening cut off value = 25 ng/mL Performed By: #### D HIGGINS ####[facility] ([id number])[address] [address] [place] [address] Glucose Glucometer (BldC) [M ass/Vol]on 11-25-2023 Glucose [Mass/Vol] 89 mg/dL Normal 65-99 [facility] Glucose [Mass/Vol] 86 mg/dL Normal 65-99 [facility] MAGNESIUMon 11-25-2023 Magnesium [Mass/Vol] 2.1 mg/dL Normal 1.8-2.6 [facility] Comment on above: Performed By: #### 3 968-5, 93265-1 ####[facility] ([id number])[address], [place] [address] Phenytoin [Mass/Vol]on 11-24 DILANTIN 22.1 ug/mL High 10.0-20.0 [facility] Comment on above: Performed By: #### 3 968-5, 67334-3 #### [facility] ([id number]) [address], [address] [place] [address] cloBAZam and norclobazam nevarez loraine 11-25-2023 CLOBAZAM 62.2 ng/mL Normal 30-300 [facility] N-desmethylclobazam 232.0 ng/mL Low 300-3000 [facility] Comment on above: Result Comment: NOTE ADDITIONAL INFORMATION This test was developed and its performance characteristics determined by [facility] in a manner consistent with CLIA requirements. This test has not been cleared or approved by the U.S. Food and Drug Administration. Test Performed by: [facility] [address] [place] [address] Body And Frame Man: Daryn Hoskins M.D. Ph.D.; CLIA# [id number] lamoTRIgine [Mass/Vol]on Lamotrigine, S 4.5 mcg/mL Normal 3.0-15.0 [facility] Comment on above: Result Comment: NOTE ADDITIONAL INFORMATION This test was developed and its performance characteristics determined by [facility] in a manner consistent with CLIA requirements. This test has not been cleared or approved by the U.S. Food and Drug Administration. Test Performed by: [facility] [address] [place] [address] Body And Frame Man: Daryn Hoskins M.D. Ph.D.; CLIA# [id number] Performed By: #### 3 968-5, 19695-6 ####[facility] ([id number])[address] [facility], [address], [place] [address] Office Visiton 11-16-2023 Follow-up visit [id number] Juan Jose Kovacs 2000 F Date Provider Department Center 11/16/2023 Leisa-SWAPNA [facility]ON [facility] No family history on file Level of Service:94133 RI OFFICE/OUTPATIENT ESTABLISHED MOD MDM 30 MIN Reason for Visit and Comments: Follow-up [631738] Normal [facility] Patient Letteron 10-26-2023 Patient Letter [id number]#1.00OTG TIFF Normal [facility] Glucose Glucometer (dC) [M ass/Vol]on 10-17-2023 Glucose [Mass/Vol] 78 mg/dL Normal 65-99 [facility] HCG ( test) Ql (U)o n 10-17-2023 Beta HCG ( test) Ql (U) Negative Normal NEG [facility] Comment on above: Performed By: #### 2 106-3 #### [facility] ([id number]) [address] [place] [address] BASIC METABOLIC PANLon 10-09 Anion gap [Moles/Vol] 7 mmol/L Normal 5-15 [facility] Comment on above: Performed By: #### B MP #### [facility] ([id number]) [address] [place] [address] Calcium [Mass/Vol] 9.0 mg/dL Normal 8.5-10.5 [facility] Comment on above: Performed By: #### B MP #### [facility] ([id number]) [address] [place] [address] Chloride [Moles/Vol] 106 mmol/L Normal 98-109 [facility] Comment on above: Performed By: #### B MP #### [facility] ([id number]) [address] [place] [address] CO2 [Moles/Vol] 25 mmol/L Normal 22-32 [facility] Comment on above: Performed By: #### B MP #### [facility] ([id number]) [address] [place] [address] Creatinine [Mass/Vol] 0.81 mg/dL Normal 0.40-1.00 [facility] Comment on above: Result Comment: METH OD TRACEABLE TO IDMS STANDARD Performed By: #### B MP #### [facility] ([id number]) [address] [place] [address] eGFR (CKD-EPI) NON-RACE DEPENDENT >90 Normal >59 [facility] Comment on above: Result Comment: Reported eGFR is based on the CKD-EPI 2020 equation that does not use a race coefficient. Performed By: #### B MP #### [facility] ([id number]) [address] [place] [address] Glucose [Mass/Vol] 103 mg/dL High 65-99 [facility] Comment on above: Performed By: #### B MP #### [facility] ([id number]) [address] [place] [address] Potassium [Moles/Vol] 3.6 mmol/L Normal 3.5-5.0 [facility] Comment on above: Performed By: #### B MP #### [facility] ([id number]) [address] [place] [address] Sodium [Moles/Vol] 138 mmol/L Normal 134-146 [facility] Comment on above: Performed By: #### B MP #### [facility] ([id number]) [address] [place] [address] Urea nitrogen [Mass/Vol] 12 mg/dL Normal 5-23 [facility] Comment on above: Performed By: #### B #### [facility] ([id number]) [address] [address] URINALYSISon 10-10-2023 Bilirubin Ql (U) Negative Normal NEG [facility] BLOOD/HGB MODERATE Abnormal NEG [facility] CA OXALATE CRYSTALS PRESENT Abnormal NONE [facility] Color (U) YELLOW Normal YELLOW [facility] Glucose Ql (U) Negative Normal NEG [facility] Ketones Ql (U) Negative Normal NEG [facility] Leukocyte esterase Test strip Ql (U) Negative Normal NEG [facility] MUCOUS PRESENT Abnormal NONE [facility] Nitrite Ql (U) Negative Normal NEG [facility] pH (U) 7.0 [pH] Normal 5.0-8.5 [facility] Protein Ql (U) Trace Abnormal NEG [facility] R.B.CELLS 3 /hpf Normal 0-5 [facility] Specific gravity (U) [Rel density] 1.024 Normal 1.003-1.03 5 [facility] SQUAMOUS EPITHELIUM 8 /hpf High 0-5 [facility] TURBIDITY CLEAR Normal CLEAR [facility] Urobilinogen (U) [Mass/Vol] mg/dL Normal <1.1 [facility] W.B.CELLS 3 /hpf Normal 0-5 [facility] URINE CULTUREon 10-10-2023 Bacteria identified Cx Nom (U) CULTURE RESULTS <10,000 ORGANISMS/ML NORMAL URO GENITAL ZANDER Normal [facility] Comment on above: Performed By: #### 6 30-4 #### [facility] ([id number]) [address] [facility], [address] [place] [address] Patient Handouton 09-28-2023 Patient Handout [id number]#1.00OTGTI FF Normal [facility] Patient Handouton 09-27-2023 Patient Handout [id number]#1.00OTGTIF F Normal [facility] Patient Handout [id number]#1.00OTGTI FF Normal [facility] THYROID PROFILEon 09-27-2023 Free T4 [Mass/Vol] 1.17 ng/dL Normal 0.61-1.60 [facility] Comment on above: Performed By: #### T HYR ####[facility] ([id number])[address], [address] [place] [address] TSH 0.74 uIU/mL Normal 0.49-4.67 [facility] Comment on above: Performed By: #### T HYR ####[facility] ([id number])[address], [address] [place] [address] US PELVIC COMPLETEon 024 US PELVIC COMPLETE [...] on 09/20/2023 11:39 AM Normal [facility] POCT , urineon 08-26 Beta HCG ( test) Ql (U) Negative [facility] POCT , urineon 08-25 Beta HCG ( test) Ql (U) Negative [facility] Internal Screen Printer Helper Check Completed and Passed Yes [facility] Interpretation and review of laboratory results Normal [facility] US RETROPERITONEAL COMPLETEo n 09-12-2023 US RETROPERITONEAL [...] Comment: NOTE Test Result Flag Unit RefValue --- UroVysion (R) for Bladder Cancer Result Summary [...] specific probe for 9p21 ([employer] [place], [place]). This test has been modified from the design engineering specialist's instructions. Its performance characteristics were determined by [facility] in a manner consistent with CLIA requirements. This test has not been cleared or approved by the U.S. Food and Drug Administration. Reason for Referral Evaluate for urothelial carcinoma. Specimen Varies Source Urine, NOS Released By Marianne Bray M.D. Test Performed by: [facility] [place] [address] Body And Frame Man: Daryn Hoskins M.D. Ph.D.; CLIA# [id number] Cytologyon 09-07-2023 Cytology Normal [facility] Comment on above: Result Comment: [facility] [address] [place] [address] Cytology Consultation Patient Name:BHAVNA KOVACS:2000 (Age: 23)Gender:FTaken:09/07/2023eported:09/09/2023 11:03Physician(s):Enriqueta Tse PA-C ([phone])Copy To: Rec. #:[id number]: #[id number] Final Cytologic Diagnosis Urine: Negative for high-grade urothelial cell carcinoma. wa/09/09/2023 Interpretation performed at [facility], [address] [place] [address], License number: [id number].Electronically Signed Out By Boom Holguin MD Clinical History Gross hematuria R31.0 Gross Description Received was 60mL of cloudy yellow fluid unfixed labeled as Bethanie, Urine per specimen requisition . 30mL used for Cytology. See UroVysion report.Portion submitted for cultures Source of Specimen Urine Non NICKER ThinPrep Fee Code(s): 1; 40968 POCT Urinalysis Auto Onlyon 09-07-2023 External Poct Urine Blood Trace [facility] External Poct Urine Glucose Negative [facility] External Poct Urine Ketones Negative [facility] External Poct Urine Leukocyte Esterase Negative [facility] External Poct Urine Nitrite Negative [facility] External Poct Urine Ph 7.0 Pr [facility] External Poct Urine Protein Negative [facility] Interpretation and review of laboratory results Abnormal [facility] URINE CULTUREon 09-07-2023 Bacteria identified Cx Nom (U) SPECIMEN NOTES URINE RECEIVED WITHOUT PRESERVATIVE CULTURE RESULTS <10,000 ORGANISMS/ML NORMAL URO GENITAL ZANDER Normal [facility] Comment on above: Performed By: #### 6 30-4 #### [facility] ([id number]) [address] [place] [address], [address] [place] [address] BASIC METABOLIC PANLon 08-25 Anion gap [Moles/Vol] 7 mmol/L Normal 5-15 [facility] Comment on above: Performed By: #### C BCA, BMP #### [facility] ([id number]) [address], [address] [place] [address] Calcium [Mass/Vol] 8.5 mg/dL Normal 8.5-10.5 [facility] Comment on above: Performed By: #### C BCA, BMP #### [facility] ([id number]) [address], [address] [place] [address] Chloride [Moles/Vol] 107 mmol/L Normal 98-109 [facility] Comment on above: Performed By: #### C BCA, BMP #### [facility] ([id number]) [address], [address] [place] [address] CO2 [Moles/Vol] 27 mmol/L Normal 22-32 [facility] Comment on above: Performed By: #### C BCA, BMP #### [facility] ([id number]) [address], [address] [place] [address] Creatinine [Mass/Vol] 0.73 mg/dL Normal 0.40-1.00 [facility] Comment on above: Result Comment: METH OD TRACEABLE TO IDMS STANDARD Performed By: #### C BCA, BMP #### [facility] ([id number]) [address], [address] [place] [address] eGFR (CKD-EPI) NON-RACE DEPENDENT >90 Normal >59 [facility] Comment on above: Result Comment: Reported eGFR is based on the CKD-EPI 2020 equation that does not use a race coefficient. Performed By: #### C BCA, BMP #### [facility] ([id number]) [address], [address] [place] [address] Glucose [Mass/Vol] 79 mg/dL Normal 65-99 [facility] Comment on above: Performed By: #### C BCA, BMP #### [facility] ([id number]) [address], [address] [place] [address] Potassium [Moles/Vol] 3.3 mmol/L Low 3.5-5.0 [facility] Comment on above: Performed By: #### C SLAVA, BMP #### [facility] ([id number]) [address], [address] [place] [address] Sodium [Moles/Vol] 141 mmol/L Normal 134-146 [facility] Comment on above: Performed By: #### C SLAVA, BMP #### [facility] ([id number]) [address] [address] [place] [address] Urea nitrogen [Mass/Vol] 8 mg/dL Normal 5-23 [facility] Comment on above: Performed By: #### C SLAVA, BMP #### [facility] ([id number]) [address] [address] CBC AND AUTO DIFFon 08-26-19 24 ABSOLUTE BASOPHIL 0.0 X10E9/L Normal 0.0-0.2 [facility] Comment on above: Performed By: #### C SLAVA, BMP #### [facility] ([id number]) [address], [facility] [address] [place] [address] ABSOLUTE NEUTROPHIL 2.7 X10E9/L Normal 1.5-6.6 [facility] Comment on above: Performed By: #### C SLAVA, BMP #### [facility] ([id number]) [address] [address] [place] [address] Basophils/100 WBC (Bld) 0.6 % Normal [facility] Comment on above: Performed By: #### C SLAVA, BMP #### [facility] ([id number]) [address] [address] [place] [address] Eosinophils (Bld) [#/Vol] 0.1 10*3/uL Normal 0.0-0.4 [facility] Comment on above: Performed By: #### C SLAVA, BMP #### [facility] ([id number]) [address], [address] [place] [address] Eosinophils/100 WBC (Bld) 2.3 % Normal [facility] Comment on above: Performed By: #### C SLAVA, BMP #### [facility] ([id number]) [address], [address] [place] [address] Erythrocyte distribution width (RBC) [Ratio] 13.9 % Normal 11.5-15.0 [facility] Comment on above: Performed By: #### C SLAVA, BMP #### [facility] ([id number]) [address], [address] [place] [address] Hematocrit (Bld) [Volume fraction] 33.1 % Low 35-47 [facility] Comment on above: Performed By: #### C SLAVA, BMP #### [facility] ([id number]) [address], [address] [place] [address] Hemoglobin (Bld) [Mass/Vol] 11.1 g/dL Low 11.7-15.5 [facility] Comment on above: Performed By: #### C SLAVA, BMP #### [facility] ([id number]) [address], [address] [place] [address] Lymphocytes (Bld) [#/Vol] 2.0 10*3/uL Normal 1.0-3.5 [facility] Comment on above: Performed By: #### C SLAVA, BMP #### [facility] ([id number]) [address], [address] [place] [address] Lymphocytes/100 WBC (Bld) 36.7 % Normal [facility] Comment on above: Performed By: #### C BCA, BMP #### [facility] ([id number]) [address], [address] [place] [address] MCH (RBC) [Entitic mass] 28.7 pg Normal 27-34 [facility] Comment on above: Performed By: #### C SLAVA, BMP #### [facility] ([id number]) [address], [address] [place] [address] MCHC (RBC) [Mass/Vol] 33.4 g/dL Normal 32-36 [facility] Comment on above: Performed By: #### C SLAVA, BMP #### [facility] ([id number]) [address], [address] [place] [address] MCV (RBC) [Entitic vol] 86 fL Normal 80-100 [facility] Comment on above: Performed By: #### C SLAVA, BMP #### [facility] ([id number]) [address], [address] [place] [address] Monocytes (Bld) [#/Vol] 0.6 10*3/uL Normal 0-0.9 [facility] Comment on above: Performed By: #### C SLAVA, BMP #### [facility] ([id number]) [address], [address] [place] [address] Monocytes/100 WBC (Bld) 10.4 % Normal [facility] Comment on above: Performed By: #### C SLAVA, BMP #### [facility] ([id number]) [address], [address] [place] [address] Neutrophils/100 WBC (Bld) 50.0 % Normal [facility] Comment on above: Performed By: #### C SLAVA, BMP #### [facility] ([id number]) [address], [address] [place] [address] Platelet mean volume (Bld) [Entitic vol] 8.1 fL Normal 7-12 [facility] Comment on above: Performed By: #### C BCA, BMP #### [facility] ([id number]) [address], [address] [place] [address] Platelets (Bld) [#/Vol] 184 10*3/uL Normal 150-450 [facility] Comment on above: Performed By: #### C SLAVA, BMP #### [facility] ([id number]) [address], [address] [place] [address] RBC COUNT 3.86 X10E12/L Normal 3.80-5.20 [facility] Comment on above: Performed By: #### Kristen PEDERSEN, BMP #### [facility] ([id number]) [address], [address] [place] [address] WBC (Bld) [#/Vol] 5.4 10*3/uL Normal 4.0-11.0 [facility] Comment on above: Performed By: #### Kristen PEDERSEN, BMP #### [facility] ([id number]) [address], [address] [place] [address] Glucose Glucometer (dC) [M ass/Vol]on 08-26-2023 Glucose [Mass/Vol] 108 mg/dL High 65-99 [facility] Glucose [Mass/Vol] 80 mg/dL Normal 65-99 [facility] Glucose [Mass/Vol] 83 mg/dL Normal 65-99 [facility] CBC AND AUTO DIFFon 08-25-19 24 ABSOLUTE BASOPHIL 0.0 X10E9/L Normal 0.0-0.2 [facility] Comment on above: Performed By: #### C DANIEL, CBCA, 06567-9, 13906-2 #### [facility] ([id number]) [address] [place] [address] ABSOLUTE NEUTROPHIL 5.9 X10E9/L Normal 1.5-6.6 [facility] Comment on above: Performed By: #### C MP, CBCA, 55873-9, 54386-7 #### [facility] ([id number]) [address] [place] [address] Basophils/100 WBC (Bld) 0.4 % Normal [facility] Comment on above: Performed By: #### C MP, CBCA, , #### [facility] ([id number]) [address] [place] [address] Eosinophils (Bld) [#/Vol] 0.0 10*3/uL Normal 0.0-0.4 [facility] Comment on above: Performed By: #### C MP, CBCA, , #### [facility] ([id number]) [address] [place] [address] Eosinophils/100 WBC (Bld) 0.5 % Normal [facility] Comment on above: Performed By: #### C DANIEL, CBCA, , #### [facility] ([id number]) [address] [place] [address] Erythrocyte distribution width (RBC) [Ratio] 14.0 % Normal 11.5-15.0 [facility] Comment on above: Performed By: #### C DANIEL, CBCA, , #### [facility] ([id number]) [address] [place] [address] Hematocrit (Bld) [Volume fraction] 39.6 % Normal 35-47 [facility] Comment on above: Performed By: #### C MP, CBCA, , #### [facility] ([id number]) [address] [place] [address] Hemoglobin (Bld) [Mass/Vol] 13.3 g/dL Normal 11.7-15.5 [facility] Comment on above: Performed By: #### C MP, CBCA, , #### [facility] ([id number]) [address] [place] [address] Lymphocytes (Bld) [#/Vol] 2.1 10*3/uL Normal 1.0-3.5 [facility] Comment on above: Performed By: #### C DANIEL, CBCA, , #### [facility] ([id number]) [address] [place] [address] Lymphocytes/100 WBC (Bld) 23.6 % Normal [facility] Comment on above: Performed By: #### C DANIEL, CBCA, , #### [facility] ([id number]) [address] [place] [address] MCH (RBC) [Entitic mass] 28.6 pg Normal 27-34 [facility] Comment on above: Performed By: #### C DANIEL, CBCA, , #### [facility] ([id number]) [address] [place] [address] MCHC (RBC) [Mass/Vol] 33.6 g/dL Normal 32-36 [facility] Comment on above: Performed By: #### C DANIEL, CBCA, , #### [facility] ([id number]) [address] [place] [address] MCV (RBC) [Entitic vol] 85 fL Normal 80-100 [facility] Comment on above: Performed By: #### C DANIEL, CBCA, , #### [facility] ([id number]) [address] [place] [address] Monocytes (Bld) [#/Vol] 0.8 10*3/uL Normal 0-0.9 [facility] Comment on above: Performed By: #### C DANIEL, CBCA, , #### [facility] ([id number]) [address] [place] [address] Monocytes/100 WBC (Bld) 9.3 % Normal [facility] Comment on above: Performed By: #### C MP, CBCA, , #### [facility] ([id number]) [address] [place] [address] Neutrophils/100 WBC (Bld) 66.2 % Normal [facility] Comment on above: Performed By: #### C MP, CBCA, , #### [facility] ([id number]) [address] [place] [address] Platelet mean volume (Bld) [Entitic vol] 7.9 fL Normal 7-12 [facility] Comment on above: Performed By: #### C MP, CBCA, , #### [facility] ([id number]) [address] [place] [address] Platelets (Bld) [#/Vol] 234 10*3/uL Normal 150-450 [facility] Comment on above: Performed By: #### C MP, CBCA, , #### [facility] ([id number]) [address] [place] [address] RBC COUNT 4.65 X10E12/L Normal 3.80-5.20 [facility] Comment on above: Performed By: #### C MP, CBCA, , #### [facility] ([id number]) [address] [place] [address] WBC (Bld) [#/Vol] 8.9 10*3/uL Normal 4.0-11.0 [facility] Comment on above: Performed By: #### C MP, CBCA, , #### [facility] ([id number]) [address] [place] [address] [place] [address] COMPREHENSIVE METABOLIC PANE Basim 08-25-2023 Albumin [Mass/Vol] 4.7 g/dL Normal 3.2-5.3 [facility] Comment on above: Performed By: #### C DANIEL, CBCA, 34707-4, #### [facility] ([id number]) [address] [place] [address] ALP [Catalytic activity/Vol] 57 U/L Normal 39-130 [facility] Comment on above: Performed By: #### C DANIEL, CBCA, 10311-6, #### [facility] ([id number]) [address] [place] [address] ALT [Catalytic activity/Vol] 11 U/L Normal 0-31 [facility] Comment on above: Performed By: #### C DANIEL, CBCA, 83384-1, #### [facility] ([id number]) [address] [place] [address] Anion gap [Moles/Vol] 12 mmol/L Normal 5-15 [facility] Comment on above: Performed By: #### C DANIEL, CBCA, 14124-2, #### [facility] ([id number]) [address] [place] [address] AST [Catalytic activity/Vol] 34 U/L Normal 0-41 [facility] Comment on above: Performed By: #### C MP, CBCA, 72891-6, #### [facility] ([id number]) [address] [place] [address] Bilirubin [Mass/Vol] 0.9 mg/dL Normal 0.3-1.2 [facility] Comment on above: Performed By: #### C DANIEL, CBCA, 39051-7, #### [facility] ([id number]) [address] [place] [address] Calcium [Mass/Vol] 9.0 mg/dL Normal 8.5-10.5 [facility] Comment on above: Performed By: #### C DANIEL, LUIS ALFREDOA, 66022-3, 33964-0 #### [facility] ([id number]) [address] [place] [address] Chloride [Moles/Vol] 101 mmol/L Normal 98-109 [facility] Comment on above: Performed By: #### C DANIEL, LUIS ALFREDOA, 43816-6, #### [facility] ([id number]) [address] [place] [address] CO2 [Moles/Vol] 24 mmol/L Normal 22-32 [facility] Comment on above: Performed By: #### C JAILYN SANCHEZ, , #### [facility] ([id number]) [address] [place] [address] Creatinine [Mass/Vol] 0.93 mg/dL Normal 0.40-1.00 [facility] Comment on above: Result Comment: METH OD TRACEABLE TO IDMS STANDARD Performed By: #### C JAILYN SANCHEZ, 27013-4, 00322-2 #### [facility] ([id number]) [address] [place] [address] GFR/1.73 sq M.predicted among non-blacks MDRD (S/P/Bld) [Vol rate/Area] 89 mL/min/{1.73_m2} Normal >59 [facility] Comment on above: Result Comment: Reported eGFR is based on the CKD-EPI 2020 equation that does not use a race coefficient. Performed By: #### C DANIEL, LUIS ALFREDOA, 28431-9, 28035-9 #### [facility] ([id number]) [address] [place] [address] Glucose [Mass/Vol] 102 mg/dL High 65-99 [facility] Comment on above: Performed By: #### C DANIEL, CBCA, 14525-7, #### [facility] ([id number]) [address] [place] [address] Potassium [Moles/Vol] 3.1 mmol/L Low 3.5-5.0 [facility] Comment on above: Performed By: #### C DANIEL, CBCA, 34325-1, #### [facility] ([id number]) [address] [place] [address]32 Protein [Mass/Vol] 7.8 g/dL Normal 6.0-8.0 [facility] Comment on above: Performed By: #### C DANIEL CBCA, , #### [facility] ([id number]) [address] [place] [address] Sodium [Moles/Vol] 137 mmol/L Normal 134-146 [facility] Comment on above: Performed By: #### C DANIEL, CBCA, , #### [facility] ([id number]) [address] [place] [address] Urea nitrogen [Mass/Vol] 9 mg/dL Normal 5-23 [facility] Comment on above: Performed By: #### C DANIEL CBCA, , 06307-5 #### [facility] ([id number]) [address] [place] [address] BRAIN WO CONTon CT BRAIN WO [...] 08-25-2023 LACTATE W/REFLEX 1.5 mmol/L Normal 0.4-2.0 [facility] Comment on above: Result Comment: Result did not trigger repeat Lactate, re-order if needed. Performed By: #### C MP, CBCA, 81579-2, 17496-2 #### [facility] ([id number]) [address] [place] [address], [place] [address] MAGNESIUMon 08-25-2023 Magnesium [Mass/Vol] 2.2 mg/dL Normal 1.8-2.6 [facility] Comment on above: Performed By: #### C DANIEL, CBCA, 49106-5, 73124-7 #### [facility] ([id number]) [address] [place] [address], [place] [address] XR ELBOW RT MIN 3 VWSon - XR ELBOW RT MIN 3 VWS XR ELBOW RT MIN 3 VWS XR ELBOW RT MIN 3 VWS INDICATION: Fall, pain COMPARISON: None FINDINGS: No acute fracture or dislocation. Joints are in proper anatomic alignment. Soft tissues are unremarkable. No joint effusion. IMPRESSION: No acute osseous abnormality of the right elbow Finalized by Jean Marie Tanner on 08/25/2023 3:50 PM Normal [facility] HPon 08-03-2023 [facility] Electrophysiology Consult Note Reason for visit: [...] to male transgender [facility]- Maternal grandmother early AR- 30's, Maternal grandfather- early AR in 40's Allergies-none Home meds-Effexor and testosterone injections Per Dr. Esparza 09/23/20 HPI: 20-year-old patient with a history of seizure disorder was recently seen by neri for complaints of palpitations. He states that he has felt them quite often and was significantly bothered by it on August 10 that he went to [facility]. EKG that performed shows evidence of [...] history Family medical history-paternal grandfather of an AR at 46 years of age, paternal uncle CAD, sister with SVT, grandmother A. rukhsana Social-never smoker, admits occasional alcohol about once [...] aches, no (more content not included)... Normal [facility] NURSNOTEon 08-03-2023 NURSNOTE RN educated pt on d/ c instructions. RN encouraged pt to voice any questions or concerns. Pt verbalizes no questions or concerns at this time. Pt was wheeled off of unit with all of belongings. Normal [facility] CBC AND AUTO DIFFon 07-28-19 24 ABSOLUTE BASOPHIL 0.0 X10E9/L Normal 0.0-0.2 [facility] Comment on above: Performed By: #### C LUIS ALFREDO SANCHEZA #### [facility] ([id number]) [address] [place] [address], [place] [address] ABSOLUTE NEUTROPHIL 3.2 X10E9/L Normal 1.5-6.6 [facility] Comment on above: Performed By: #### C LUIS ALFREDO SANCHEZA #### [facility] ([id number]) [address] [place] [address] Basophils/100 WBC (Bld) 0.7 % Normal [facility] Comment on above: Performed By: #### C MP, CBCA #### [facility] ([id number]) [address] [place] [address] Eosinophils (Bld) [#/Vol] 0.1 10*3/uL Normal 0.0-0.4 [facility] Comment on above: Performed By: #### C MP, CBCA #### [facility] ([id number]) [address] [place] [address]85 Eosinophils/100 WBC (Bld) 0.8 % Normal [facility] Comment on above: Performed By: #### C MP, CBCA #### [facility] ([id number]) [address] [place] [address]959 Erythrocyte distribution width (RBC) [Ratio] 14.3 % Normal 11.5-15.0 [facility] Comment on above: Performed By: #### C MP, CBCA #### [facility] ([id number]) [address] [place] [address]81 Hematocrit (Bld) [Volume fraction] 39.8 % Normal 35-47 [facility] Comment on above: Performed By: #### C MP, CBCA #### [facility] ([id number]) [address] [place] [address]797 Hemoglobin (Bld) [Mass/Vol] 13.4 g/dL Normal 11.7-15.5 [facility] Comment on above: Performed By: #### C MP, CBCA #### [facility] ([id number]) [address] [place] [address] 19980 Lymphocytes (Bld) [#/Vol] 3.1 10*3/uL Normal 1.0-3.5 [facility] Comment on above: Performed By: #### C MP, CBCA #### [facility] ([id number]) [address] [place] [address] 29364 Lymphocytes/100 WBC (Bld) 44.5 % Normal [facility] Comment on above: Performed By: #### C MP, CBCA #### [facility] ([id number]) [address] [place] [address]018 MCH (RBC) [Entitic mass] 28.3 pg Normal 27-34 [facility] Comment on above: Performed By: #### C MP, CBCA #### [facility] ([id number]) [address] [place] [address]99 MCHC (RBC) [Mass/Vol] 33.8 g/dL Normal 32-36 [facility] Comment on above: Performed By: #### C MP, CBCA #### [facility] ([id number]) [address] [place] [address]14 MCV (RBC) [Entitic vol] 84 fL Normal 80-100 [facility] Comment on above: Performed By: #### C MP, CBCA #### [facility] ([id number]) [address] [place] [address]40 Monocytes (Bld) [#/Vol] 0.6 10*3/uL Normal 0-0.9 [facility] Comment on above: Performed By: #### C MP, CBCA #### [facility] ([id number]) [address] [place] [address] 15526 Monocytes/100 WBC (Bld) 8.1 % Normal [facility] Comment on above: Performed By: #### C MP, CBCA #### [facility] ([id number]) [address] [place] [address] Neutrophils/100 WBC (Bld) 45.9 % Normal [facility] Comment on above: Performed By: #### C MP, CBCA #### [facility] ([id number]) [address] [place] [address] 14979 Platelet mean volume (Bld) [Entitic vol] 8.0 fL Normal 7-12 [facility] Comment on above: Performed By: #### C MP, CBCA #### [facility] ([id number]) [address] [place] [address] 88025 Platelets (Bld) [#/Vol] 270 10*3/uL Normal 150-450 [facility] Comment on above: Performed By: #### C MP, CBCA #### [facility] ([id number]) [address] [place] [address] 64328 RBC COUNT 4.75 X10E12/L Normal 3.80-5.20 [facility] Comment on above: Performed By: #### C MP, CBCA #### [facility] ([id number]) [address] [place] [address] 59566 WBC (Bld) [#/Vol] 7.0 10*3/uL Normal 4.0-11.0 [facility] Comment on above: Performed By: #### C MP, CBCA #### [facility] ([id number]) [address] [place] [address]20 COMPREHENSIVE METABOLIC PANE [facility] 07-28-2023 Albumin [Mass/Vol] 4.8 g/dL Normal 3.2-5.3 [facility] Comment on above: Performed By: #### C MP, CBCA #### [facility] ([id number]) [address] [place] [address] 80805 ALP [Catalytic activity/Vol] 55 U/L Normal 39-130 [facility] Comment on above: Performed By: #### C MP, CBCA #### [facility] ([id number]) [address] [place] [address] [place] [address] ALT [Catalytic activity/Vol] 10 U/L Normal 0-31 [facility] Comment on above: Performed By: #### C DANIEL CBCA #### [facility] ([id number]) [address] [place] [address], [place] [address] Anion gap [Moles/Vol] 7 mmol/L Normal 5-15 [facility] Comment on above: Performed By: #### C DANIEL CBCA #### [facility] ([id number]) [address] [place] [address]1813 AST [Catalytic activity/Vol] 18 U/L Normal 0-41 [facility] Comment on above: Performed By: #### C DANIEL CBCA #### [facility] ([id number]) [address] [place] [address] [place] [address] Bilirubin [Mass/Vol] 0.3 mg/dL Normal 0.3-1.2 [facility] Comment on above: Performed By: #### C DANIEL CBCA #### [facility] ([id number]) [address] [place] [address] Calcium [Mass/Vol] 9.3 mg/dL Normal 8.5-10.5 [facility] Comment on above: Performed By: #### C DANIEL CBCA #### [facility] ([id number]) [address] [place] [address], [place] [address] Chloride [Moles/Vol] 102 mmol/L Normal 98-109 [facility] Comment on above: Performed By: #### C DANIEL CBCA #### [facility] ([id number]) [address] [place] [address] [place] [address] CO2 [Moles/Vol] 29 mmol/L Normal 22-32 [facility] Comment on above: Performed By: #### C JAILYN SANCHEZ #### [facility] ([id number]) [address] [place] [address]3522 Creatinine [Mass/Vol] 0.73 mg/dL Normal 0.40-1.00 [facility] Comment on above: Result Comment: METH OD TRACEABLE TO IDMS STANDARD Performed By: #### C JAILYN SANCHEZ #### [facility] ([id number]) [address] [place] [address] 78527 eGFR (CKD-EPI) NON-RACE DEPENDENT >90 Normal >59 [facility] Comment on above: Result Comment: Reported eGFR is based on the CKD-EPI 2020 equation that does not use a race coefficient. Performed By: #### C JAILYN SANCHEZ #### [facility] ([id number]) [address] [place] [address]80 Glucose [Mass/Vol] 91 mg/dL Normal 65-99 [facility] Comment on above: Performed By: #### C JAILYN SANCHEZ #### [facility] ([id number]) [address] [place] [address] 57842 Potassium [Moles/Vol] 3.7 mmol/L Normal 3.5-5.0 [facility] Comment on above: Performed By: #### C JAILYN SANCHEZ #### [facility] ([id number]) [address] [place] [address]8541 Protein [Mass/Vol] 8.2 g/dL High 6.0-8.0 [facility] Comment on above: Performed By: #### C JAILYN SANCHEZ #### [facility] ([id number]) [address] [place] [address] 80701 Sodium [Moles/Vol] 138 mmol/L Normal 134-146 [facility] Comment on above: Performed By: #### C DANIEL CBCA #### [facility] ([id number]) [address] [place] [address] [place] [address] Urea nitrogen [Mass/Vol] 9 mg/dL Normal 5-23 [facility] Comment on above: Performed By: #### C MP, CBCA #### [facility] ([id number]) [address] [place] [address] 21875 URN MACROSCOPIC NURon 2023 BILIRUBIN MARISA Negative Normal NEG [facility] Comment on above: Performed By: #### N UM #### [facility] ([id number]) [address] [place] [address] 41521 BLOOD/HGB MARISA Negative Normal NEG [facility] Comment on above: Performed By: #### N UM #### [facility] ([id number]) [address] [place] [address] [place] [address] GLUCOSE MARISA Negative Normal NEG [facility] Comment on above: Performed By: #### N UM #### [facility] ([id number]) [address] [place] [address] [place] [address] KETONES MARISA Negative Normal NEG [facility] Comment on above: Performed By: #### N UM #### [facility] ([id number]) [address] [place] [address] [place] [address] LEUKOCYTE ESTERASE MARISA Negative Normal NEG [facility] Comment on above: Performed By: #### N UM #### [facility] ([id number]) [address] [place] [address] [place] [address] NITRITE MARISA Negative Normal NEG [facility] Comment on above: Performed By: #### N UM #### [facility] ([id number]) [address] [place] [address] [place] [address] PH MARISA 7.0 Normal 5.0-8.5 [facility] Comment on above: Performed By: #### N UM #### [facility] ([id number]) [address] [place] [address] PROTEIN MARISA Negative Normal NEG [facility] Comment on above: Performed By: #### N UM #### [facility] ([id number]) [address] [place] [address] SPECIFIC GRAVITY MARISA 1.015 Normal 1.003-1 .03 5 [facility] Comment on above: Performed By: #### N UM #### [facility] ([id number]) [address] [place] [address] UROBILINOGEN MARISA 0.2 eu/dL Normal <1.1 [facility] Comment on above: Performed By: #### N UM #### [facility] ([id number]) [address] [place] [address] US RETROPERITONEAL COMPLETEo n 07-26-2023 US RETROPERITONEAL [...] Roberto Phillips MD on 07/26/2023 1:33 PM Jo, Francisco Mojica have personally reviewed the image(s) and agree with and/or edited the report Finalized by Francisco Mojica on 07/26/2023 2:11 PM Normal [facility] URINALYSISon 07-22-2023 Bilirubin Ql (U) Negative Normal NEG [facility] BLOOD/HGB Small Abnormal NEG [facility] CA OXALATE CRYSTALS PRESENT Abnormal NONE [facility] Color (U) YELLOW Normal YELLOW [facility] [...] Specific gravity (U) [Rel density] 1.018 Normal 1.003-1.03 5 [facility] SQUAMOUS EPITHELIUM 2 /hpf Normal 0-5 [facility] TURBIDITY CLEAR Normal CLEAR [facility] Urobilinogen (U) [Mass/Vol] mg/dL Normal <1.1 [facility] W.B.CELLS 3 /hpf Normal 0-5 [facility] Alanine aminotransferase [En zymatic activity/volume] in Serum or PlasmaOrdered By: Luz Fiore on 05-12-2023 ALT [Catalytic activity/Vol] 8 U/L Normal 7-52 [facility] Comment on above: Performed By: #### C MP, CBC #### [facility] [address] Albumin [Mass/volume] in Ser um or Plasma by Bromocresol green (BCG) dye binding methoOrdered By: Luz Fiore on 05-12-2023 Albumin BCG dye [Mass/Vol] 4.6 g/dL 3.5-5.7 [facility] Alkaline phosphatase [Enzyma tic activity/volume] in Serum or PlasmaOrdered By: Luz Fiore on 05-12-2023 ALP [Catalytic activity/Vol] 56 U/L Normal 34-104 [facility] Comment on above: Performed By: #### C MP, CBC #### [address] Aspartate aminotransferase [ Enzymatic activity/volume] in Serum or PlasmaOrdered By: Luz Adebayo on 05-12-2023 AST [Catalytic activity/Vol] 14 U/L Normal 13-39 [facility] Comment on above: Result Comment: PERF ORMED BY: [place] [address] 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 Performed By: #### R EDRAW AST, REDRAW K ####[address] Automated basophil %Ordered By: Luz Fiore on 05-12-2023 Basophils/100 WBC (Bld) 0.5 % Normal . [facility] Comment on above: Performed By: #### C MP, CBC #### [address] Automated basophil countOrde red By: Luzjennifer Fiore on 05-12-2023 Basophils (Bld) [#/Vol] 0.0 10*3/uL Normal 0.0-0.2 [facility] Comment on above: Result Comment: PERF ORMED BY: [place] [address] 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 Performed By: #### C MP, CBC #### [facility] [address] [place] [address] Automated blood monocyte cou ntOrdered By: Luz Fiore on 05-12-2023 Monocytes (Bld) [#/Vol] 0.5 10*3/uL Normal 0.0-0.8 [facility] Comment on above: Performed By: #### C MP, CBC #### [address] Automated eosinophil %Ordere d By: Luz Fiore on 11-16-2023 Eosinophils/100 WBC (Bld) 0.5 % Normal . [facility] Comment on above: Performed By: #### C MP, CBC #### [facility] [address] Automated eosinophil countOr dered By: Luz Adebayo on 05-12-2023 Eosinophils (Bld) [#/Vol] 0.0 10*3/uL Normal 0.0-0.45 [facility] Comment on above: Performed By: #### C MP, CBC #### [facility] [address] Automated erythrocytes count in urine sediment (number/area)Ordered By: Luz Fiore on 05-12-2023 RBC Auto (Urine sed) [#/Area] 5-9 [HPF] 0-4 [facility] Automated leukocytes count i n urine sediment (number/area)Ordered By: Luz Fiore on 05-12-2023 WBC Auto (Urine sed) [#/Area] 5-9 [HPF] 0-4 [facility] Automated monocyte %Ordered By: Luz Fiore on 05-12-2023 Monocytes/100 WBC (Bld) 5.1 % Normal . [facility] Comment on above: Performed By: #### C MP, CBC #### [facility] [address] Automated neutrophil %Ordere d By: Luzjennifer Fiore on 05-12-2023 Neutrophils/100 WBC (Bld) 58.9 % Normal . [facility] Comment on above: Performed By: #### C MP, CBC #### [facility] [address] Automated urine color determ inationOrdered By: Luzjennifer Fiore on 05-12-2023 Color (U) Yellow Normal Yellow [facility] Comment on above: Order Comment: Name Collection Type:: Clean-Voided Midstream Performed By: #### A DDONUAPLUS, CG ####[facility] Bilirubin Test strip Ql (U)O rdered By: Luz Fiore on 05-12-2023 Bilirubin Ql (U) Negative Negative [facility] Bilirubin.total [Mass/volume ] in Serum or PlasmaOrdered By: Luz Fiore on 05-12-2023 Bilirubin [Mass/Vol] 0.4 mg/dL Normal 0.3-1.0 [facility] Comment on above: Performed By: #### C MP, CBC #### [facility] [address] abdomen pelvis wo conon 1 07-12-2022 CT abdomen pelvis wo con [facility] [address] [place] [address] [place] [address] CT Scan Report Signed Patient: Bhavna Kovacs MR#: [id number] 668 : 2000 Acct:[id number] Age/Sex: 22 / F ADM Date: 05/12/23 [...] nephrolithiasis. No obstructive uropathy. Impression dictated by: Tamiko Gregory Jr.O.05/12/2023 2:53 PM Dictation Location: [place] [address] Transcribed By: [facility] 05/12/23 1453 Dictated By: Aman So Jr, DO 05/12/23 1447 Signed By: 05/12/23 145 Normal [facility] Calcium [Mass/volume] in Ser um or PlasmaOrdered By: Luz Fiore on 05-12-2023 Calcium [Mass/Vol] 9.4 mg/dL Normal 8.6-10.3 [facility] Comment on above: Performed By: #### C MP, CBC #### [address] Carbon dioxide, total [Moles /volume] in Serum or PlasmaOrdered By: Luz Fiore on 05-12-2023 CO2 [Moles/Vol] 28.5 mmol/L Normal 21.0-31.[address] [facility] Comment on above: Performed By: #### C MP, CBC #### [address] Chloride [Moles/volume] in S alexis or PlasmaOrdered By: Luz Fiore on 05-12-2023 Chloride [Moles/Vol] 105 mmol/L Normal 98-107 [facility] Comment on above: Performed By: #### C MP, CBC #### [address] Complete Blood Count Auto Di ffon 05-12-2023 Mean Corpuscular HGB Conc 33.7 g/dL Normal 32.0-35.0 [facility] Comment on above: Performed By: #### C MP, CBC #### [facility] [address] [place] [address] [place] Monocytes/100 WBC (Bld) 19.05 % Normal 0.00-20.00 [facility] Comment on above: Performed By: #### C MP, CBC #### [place] [address] [place] NRBC% 0.1 /100{WBC} Normal 0-0.5 [facility] Comment on above: Performed By: #### C MP, CBC #### [facility] [address] Comprehensive Metabolic Pane basim 05-12-2023 Albumin [Mass/Vol] 4.6 g/dL Normal 3.5-5.7 [facility] Comment on above: Performed By: #### C MP, CBC #### [facility] [address] Anion gap [Moles/Vol] Not performed Normal 6.0-15.0 [facility] Comment on above: Performed By: #### C MP, CBC #### [facility] [address] Aspartate Amino Transferase Normal 13-39 [facility] Comment on above: Result Comment: Spec imen hemolyzed, redraw requested Results called at 1459 on 05/12/23 Performed By: #### C MP, CBC #### [place] [address] [place] Creatinine Clr Calc Pharmacy 79.00 Normal [facility] Comment on above: Result Comment: PERF ORMED BY: [place] [address] 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 Performed By: #### C MP, CBC #### [place] [address] [place] GFR/1.73 sq M.predicted MDRD (S/P/Bld) [Vol rate/Area] mL/min/{1.73_m2} Normal [facility] Comment on above: Performed By: #### C MP, CBC #### [facility] [address] [place] [address] [place] Potassium Normal 3.5-5.1 [facility] Comment on above: Result Comment: Spec imen hemolyzed, redraw requested Results called at 1459 on 05/12/23 Performed By: #### C MP, CBC #### [place] [address] [place] Creatinine [Mass/volume] in Serum or PlasmaOrdered By: Luz Fiore on 05-12-2023 Creatinine [Mass/Vol] 0.85 mg/dL Normal 0.60-1.20 [facility] Comment on above: Performed By: #### C MP, CBC #### [facility] [address] [place] [id number] [facility] Dipstick and Microscopicon 1 07-12-2022 Appearance (U) Cloudy Critically abnormal Clear [facility] Comment on above: Order Comment: Name Collection Type:: Clean-Voided Midstream Performed By: #### A DDONUAPLUS, UHCG ####[place] [address] [place] [address] [facility] Bacteria,Urine 1+ High None Seen [facility] Comment on above: Order Comment: Name Collection Type:: Clean-Voided Midstream Performed By: #### A DDONUAPLUS, UHCG ####[place] [address] [place] [id number] [facility] Bilirubin,Urine Negative Normal Negative [facility] Comment on above: Order Comment: Name Collection Type:: Clean-Voided Midstream Performed By: #### A DDONUAPLUS, UHCG ####[place] [address] [place] [id number] [facility] Glucose Ql (U) Normal Normal Normal [facility] Comment on above: Order Comment: Name Collection Type:: Clean-Voided Midstream Performed By: #### A DDONUAPLUS, UHCG ####[place] [address] [place] [address] [facility] Hyaline Casts,Urine 0-8 Normal 0-8 [facility] Comment on above: Order Comment: Name Collection Type:: Clean-Voided Midstream Performed By: #### A DDONUAPLUS, UHCG ####[address] [address] [facility] Ketones Ql (U) Trace High Negative [facility] Comment on above: Order Comment: Name Collection Type:: Clean-Voided Midstream Performed By: #### A DDONUAPLUS, UHCG ####[place] [id number] [facility] Leukocyte esterase Test strip Ql (U) Negative Normal Negative [facility] Comment on above: Order Comment: Name Collection Type:: Clean-Voided Midstream Performed By: #### A DDONUAPLUS, UHCG ####[place] [address] [place] [address] [facility] Nitrite,Urine Negative Normal Negative [facility] Comment on above: Order Comment: Name Collection Type:: Clean-Voided Midstream Performed By: #### A DDONUAPLUS, UHCG ####[address] [address] [facility] Occult Blood,Urine Trace High Negative [facility] Comment on above: Order Comment: Name Collection Type:: Clean-Voided Midstream Performed By: #### A DDONUAPLUS, UHCG ####[address] [address] [facility] Protein,Urine Negative Normal Negative [facility] Comment on above: Order Comment: Name Collection Type:: Clean-Voided Midstream Performed By: #### A DDONUAPLUS, UHCG ####[place] [address] [place] [address] [facility] RBC,Urine 5-9 High 0-4 [facility] Comment on above: Order Comment: Name Collection Type:: Clean-Voided Midstream Performed By: #### A DDONUAPLUS, UHCG ####[address] [address] [facility] Specificy Mcgrath,Urine 1.022 Normal 1.001-1.03 0 [facility] Comment on above: Order Comment: Name Collection Type:: Clean-Voided Midstream Performed By: #### A DDONUAPLUS, UHCG ####[address] [address] [facility] Squamous Epithelial Cell,Urine 5-9 High 0-2 [facility] Comment on above: Order Comment: Name Collection Type:: Clean-Voided Midstream Performed By: #### A DDONUAPLUS, UHCG ####[address] [address] [place] Urobilinogen,Urine Normal Normal Normal [facility] Comment on above: Order Comment: Name Collection Type:: Clean-Voided Midstream Performed By: #### A [facility]APLUS, [facility] ####[facility] [place] [id number] [facility] WBC,Urine 5-9 High 0-4 [facility] Comment on above: Order Comment: Name Collection Type:: Clean-Voided Midstream Performed By: #### A DDONUAPLUS, [facility] ####[facility] [place] [id number] [facility] ECG 12 lead ECGon 05-12-2023 ECG 12 lead ECG [facility] [address] [place] [address] Electrocardiograph Report Signed Patient: Bhavna Kovacs MR#: [id number] 668 : 2000 Acct:[id number] Age/Sex: 22 / F ADM Date: 05/12/23 [...] was found Confirmed by LUZ FIORE DO ([id number]) on 05/12/2023 2:57:31 PM Referred By: Electronically Signed By:LUZ FIORE DO Transcribed By: MUS Signed By Luz Fiore DO 05/12 1457 Normal [facility] Erythrocyte distribution wid th [Ratio] by Automated countOrdered By: Luz Fiore on 05-12-2023 Erythrocyte distribution width (RBC) [Ratio] 14.2 % Normal 11.9-15.3 [facility] Comment on above: Performed By: #### C MP, CBC #### [facility] [address] Erythrocytes [#/volume] in B lood by Automated countOrdered By: Luz Fiore on 05-12-2023 RBC (Bld) [#/Vol] 4.51 10*6/uL Normal 3.60-5.00 [facility] Comment on above: Performed By: #### C MP, CBC #### [facility] [address] [place] [address] [place] Glucose [Mass/volume] in Ser um or PlasmaOrdered By: Luz Fiore on 05-12-2023 Glucose [Mass/Vol] 95 mg/dL Normal 70-100 [facility] Comment on above: ADA recommended refe rence rangeRandom Glucose Reference Range is dependent on time and content of last meal. Glucose of more than 200 mg/dL in a nonstressed, ambulatory subject supports the diagnosis of Diabetes Mellitus. Result Comment: [place] om Glucose Reference Range is dependent on time and content of last meal. Glucose of more than 200 mg/dL in a nonstressed, ambulatory subject supports the diagnosis of Diabetes Mellitus. ADA recommended reference range Performed By: #### C MP, CBC #### [facility] [address] HCG ( test) IA.rapi d Ql (U)Ordered By: Luz Fiore on 05-12-2023 HCG ( test) Ql (U) Negative [facility] HCG,Urineon 05-12-2023 Beta HCG ( test) Ql (U) Negative Normal [facility] Comment on above: Order Comment: Name Collection Type:: Clean-Voided Midstream Result Comment: PERF ORMED BY: [facility] [address] [place] [address] 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 Performed By: #### A DDONUAPLUS, [facility] ####[facility] Hematocrit [Volume Fraction] of Blood by Automated countOrdered By: Luz Fiore on 05-12-2023 Hematocrit (Bld) [Volume fraction] 38.0 % Normal 34.0-46.4 [facility] Comment on above: Performed By: #### C MP, CBC #### [facility] [address] Hemoglobin [Mass/volume] in BloodOrdered By: Luz Fiore on 05-12-2023 Hemoglobin (Bld) [Mass/Vol] 12.8 g/dL Normal 11.8-15.4 [facility] Comment on above: Performed By: #### C MP, CBC #### [address] Ketones Auto test strip (U) [Mass/Vol]Ordered By: Luz Fiore on 05-12-2023 Ketones (U) [Mass/Vol] Trace Negative [facility] - UrinalysisOrder ed By: Luz Fiore on 05-12-2023 Hyaline casts LM Ql (Urine sed) 0-8 [LPF] 0-8 [facility] Leukocytes [#/volume] correc amnjula for nucleated erythrocytes in Blood by Automated counOrdered By: Luz Fiore on 05-12-2023 WBC corrected for nucl RBC Auto (Bld) [#/Vol] 9.1 10*3/uL 3.8-11.6 [facility] Leukocytes [#/volume] in Blo od by Automated countOrdered By: Luz Fiore on 05-12-2023 WBC (Bld) [#/Vol] 9.1 10*3/uL Normal 3.8-11.6 [facility] Comment on above: Performed By: #### C MP, CBC #### [facility] [address] [place] [address] [place] Lymphocytes [#/volume] in Bl ood by Automated countOrdered By: Luz Fiore on 05-12-2023 Lymphocytes (Bld) [#/Vol] 3.2 10*3/uL Normal 1.00-4.8 [facility] Comment on above: Performed By: #### C MP, CBC #### [place] [address] [place] Lymphocytes/100 leukocytes i n Blood by Automated countOrdered By: Luz Fiore on 05-12-2023 Lymphocytes/100 WBC (Bld) 35.0 % Normal . [facility] Comment on above: Performed By: #### C MP, CBC #### [address] MCH [Entitic mass] by Automa manjula countOrdered By: Luz Fiore on 05-12-2023 MCH (RBC) [Entitic mass] 28.4 pg Normal 24.7-34.3 [facility] Comment on above: Performed By: #### C MP, CBC #### [address] MCHC Auto (RBC) [Mass/Vol]Or dered By: Luz Fiore on 05-12-2023 MCHC (RBC) [Mass/Vol] 33.7 g/dL 32.0-35.0 [facility] MCV [Entitic volume] by Auto mated countOrdered By: Luz Fiore on 05-12-2023 MCV (RBC) [Entitic vol] 84.2 fL Normal 80-100 [facility] Comment on above: Performed By: #### C MP, CBC #### [address] Monocyte distribution width [Entitic volume] in Blood by AutomatedOrdered By: Luz Fiore on 05-12-2023 Monocyte distribution width Auto (Bld) [Entitic vol] 19.05 % 0.00-20.00 [facility] Neutrophils [#/volume] in Bl ood by Automated countOrdered By: Luz Fiore on 05-12-2023 Neutrophils (Bld) [#/Vol] 5.4 10*3/uL Normal 1.8-7.7 [facility] [facility] [place] Comment on above: Performed By: #### C MP, CBC #### [address] Nitrite Test strip Ql (U)Ord ered By: Luz Fiore on 05-12-2023 Nitrite Ql (U) Negative Negative [facility] [place] No Panel InformationOrdered By: Luz Fiore on 05-12-2023 Estimated GFR (CKD-EPI) > 60.0 mL/Min [facility] [place] [facility] Creatinine Clearance (Chem 79.00 [facility] [place] Nucleated erythrocytes [Pres ence] in Blood by Automated countOrdered By: Luz Fiore on 05-12-2023 Nucleated RBC Auto Ql (Bld) 0.1 /100{WBC} 0-0.5 [facility] [place] Platelet mean volume [Entiti c volume] in Blood by Automated countOrdered By: Luz Fiore on 05-12-2023 Platelet mean volume (Bld) [Entitic vol] 7.6 fL Normal 6.3-10.7 [facility] [place] Comment on above: Performed By: #### C MP, CBC #### [facility] [address] [place] [address] [place] Platelets [#/volume] in Bloo d by Automated countOrdered By: Luz Fiore on 05-12-2023 Platelets (Bld) [#/Vol] 280 10*3/uL Normal 150-450 [facility] [place] Comment on above: Performed By: #### C MP, CBC #### [facility] [address] [place] [address] [place] Potassium [Moles/volume] in Serum or PlasmaOrdered By: Luz Fiore on 05-12-2023 Potassium [Moles/Vol] 4.0 mmol/L Normal 3.5-5.1 [facility] Comment on above: Performed By: #### R EDRAW AST, REDRAW K ####[facility] Pbu[address] Protein Auto test strip (U) [Mass/Vol]Ordered By: Luz Fiore on 05-12-2023 Protein (U) [Mass/Vol] Negative Negative [facility] Protein [Mass/volume] in Ser um or PlasmaOrdered By: Luz Fiore on 05-12-2023 Protein [Mass/Vol] 7.7 g/dL Normal 6.4-8.9 [facility] Comment on above: Performed By: #### C MP, CBC #### [facility] [address] [place] [address] Serum globulin measurement b y calculation (mass/volume)Ordered By: Luz Fiore on 05-12-2023 Globulin (S) [Mass/Vol] 3.1 g/dL Normal [facility] [place] Comment on above: Performed By: #### C MP, CBC #### [facility] [address] [place] [address] Serum or plasma albumin/glob ulin mass ratioOrdered By: Luz Fiore on 05-12-2023 Albumin/Globulin [Mass ratio] 1.5 {ratio} Normal [facility] [place] Comment on above: Performed By: #### C MP, CBC #### [facility] [address] [place] [address] Serum or plasma anion gap de terminationOrdered By: Luz Fiore on 05-12-2023 Anion gap [Moles/Vol] TNP [facility] Comment on above: Test not performed Sodium [Moles/volume] in Ser um or PlasmaOrdered By: Luz Fiore on 05-12-2023 Sodium [Moles/Vol] 140 mmol/L Normal 136-145 [facility] Comment on above: Performed By: #### C MP, CBC #### [address] Specific gravity Auto test s trip (U) [Rel density]Ordered By: Luz Fiore on 05-12-2023 Specific gravity (U) [Rel density] 1.022 1.001-1.03 0 [facility] [place] Squamous epithelial cells de tection in urine sediment by light microscopyOrdered By: Luz Fiore on 05-12-2023 Epithelial cells.squamous LM Ql (Urine sed) 5-9 [HPF] 0-2 [facility] [place] Urea nitrogen [Mass/volume] in Serum or PlasmaOrdered By: Luz Fiore on 05-12-2023 Urea nitrogen [Mass/Vol] 11 mg/dL Normal 7-25 [facility] [place] Comment on above: Performed By: #### C MP, CBC #### [facility] [address] [place] [address] Urine bacteria detection by automated methodOrdered By: Luz Fiore on 05-12-2023 Bacteria Auto Ql (U) 1+ None Seen [facility] Urine clarity by refractomet ry automatedOrdered By: Luz Fiore on 05-12-2023 Clarity Refractometry automated (U) Cloudy Clear [facility] [place] Urine glucose measurement by automated test strip (mass/volume)Ordered By: Luz Fiore on 05-12-2023 Glucose Auto test strip (U) [Mass/Vol] Normal mg/dL Normal [facility] [place] Urine hemoglobin detection b y automated test stripOrdered By: Luz Fiore on 05-12-2023 Hemoglobin Auto test strip Ql (U) Trace Negative [facility] [place] Urine leukocyte esterase det ection by automated test stripOrdered By: Luz Fiore on 05-12-2023 Leukocyte esterase Auto test strip Ql (U) Negative Negative [facility] [place] Urine pH measurement by auto mated test stripOrdered By: Luz Fiore on 05-12-2023 pH (U) 7.0 [pH] Normal 5.0-9.0 [facility] [place] Comment on above: Order Comment: Name Collection Type:: Clean-Voided Midstream Performed By: #### A DD[place]APL[place], [facility] [place] ####[facility] Syd[address] Urobilinogen Auto test strip (U) [Mass/Vol]Ordered By: Luz Fiore on 05-12-2023 Urobilinogen (U) [Mass/Vol] Normal mg/dL Normal [facility] [place] Alanine aminotransferase [En zymatic activity/volume] in Serum or PlasmaOrdered By: Mario Alberto Jose on 04-12-2023 ALT [Catalytic activity/Vol] 8 U/L Normal 7-52 [facility] [place] Comment on above: Performed By: #### C MP, CBC ####[facility] Dca[address] Albumin [Mass/volume] in Ser um or Plasma by Bromocresol green (BCG) dye binding methoOrdered By: Mario Alberto Jsoe on 04-12-2023 Albumin BCG dye [Mass/Vol] 4.9 g/dL 3.5-5.7 [facility] [place] Alkaline phosphatase [Enzyma tic activity/volume] in Serum or PlasmaOrdered By: Mario Alberto Jose on 04-12-2023 ALP [Catalytic activity/Vol] 69 U/L Normal 34-104 [facility] [place] Comment on above: Performed By: #### C MP, CBC ####[address] Aspartate aminotransferase [ Enzymatic activity/volume] in Serum or PlasmaOrdered By: Mario Alberto Jose on 04-12-2023 AST [Catalytic activity/Vol] 18 U/L Normal 13-39 [facility] [place] Comment on above: Performed By: #### C MP, CBC ####[address] Automated basophil %Ordered By: Mario Alberto Jose on 04-12-2023 Basophils/100 WBC (Bld) 0.4 % Normal . [facility] [place] Comment on above: Performed By: #### C MP, CBC ####[address] Automated basophil countOrde red By: Mario Alberto Jose on 04-12-2023 Basophils (Bld) [#/Vol] 0.0 10*3/uL Normal 0.0-0.2 [facility] [place] Comment on above: Result Comment: PERF ORMED BY: [facility] [address] [place] [address] 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 Performed By: #### C MP, CBC ####[address] Automated blood monocyte cou ntOrdered By: Mario Alberto Jose on 04-12-2023 Monocytes (Bld) [#/Vol] 0.5 10*3/uL Normal 0.0-0.8 [facility] [place] Comment on above: Performed By: #### C MP, CBC ####[address] Automated eosinophil %Ordere d By: Mario Alberto Jose on 04-12-2023 Eosinophils/100 WBC (Bld) 0.5 % Normal . [facility] [place] Comment on above: Performed By: #### C MP, CBC ####[address] Automated eosinophil countOr dered By: Mario Alberto Jose on 04-12-2023 Eosinophils (Bld) [#/Vol] 0.0 10*3/uL Normal 0.0-0.45 [facility] [place] Comment on above: Performed By: #### C MP, CBC ####[address] Automated monocyte %Ordered By: Mario Alberto Jose on 04-12-2023 Monocytes/100 WBC (Bld) 5.6 % Normal . [facility] [place] Comment on above: Performed By: #### C MP, CBC ####[address] Automated neutrophil %Ordere d By: Mario Alberto Jose on 04-12-2023 Neutrophils/100 WBC (Bld) 68.1 % Normal . [facility] [place] Comment on above: Performed By: #### C MP, CBC ####[address] Bilirubin.total [Mass/volume ] in Serum or PlasmaOrdered By: Mario Alberto Jose on 04-12-2023 Bilirubin [Mass/Vol] 0.3 mg/dL Normal 0.3-1.0 [facility] Comment on above: Performed By: #### C MP, CBC ####[address] Calcium [Mass/volume] in Ser um or PlasmaOrdered By: Mario Alberto Jose on 04-12-2023 Calcium [Mass/Vol] 9.9 mg/dL Normal 8.6-10.3 [facility] Comment on above: Performed By: #### C MP, CBC ####[address] Carbon dioxide, total [Moles /volume] in Serum or PlasmaOrdered By: Mario Alberto Jose on 04-12-2023 CO2 [Moles/Vol] 27.5 mmol/L Normal 21.0-31.[address] [facility] Comment on above: Performed By: #### C MP, CBC ####[address] Chloride [Moles/volume] in S alexis or PlasmaOrdered By: Mario Alberto Jose on 04-12-2023 Chloride [Moles/Vol] 104 mmol/L Normal 98-107 [facility] Comment on above: Performed By: #### C MP, CBC ####[address] Complete Blood Count Auto Di ffon 04-12-2023 Mean Corpuscular HGB Conc 33.3 g/dL Normal 32.0-35.0 [facility] Comment on above: Performed By: #### C MP, CBC ####[place] [id number] [facility] Monocytes/100 WBC (Bld) 15.89 % Normal 0.00-20.00 [facility] Comment on above: Performed By: #### C MP, CBC ####[address] NRBC% 0.1 /100{WBC} Normal 0-0.5 [facility] Comment on above: Performed By: #### C MP, CBC ####[place] [id number] [facility] Comprehensive Metabolic Pane basim 04-12-2023 Albumin [Mass/Vol] 4.9 g/dL Normal 3.5-5.7 [facility] Comment on above: Performed By: #### C MP, CBC ####[place] [id number] [facility] Creatinine Clr Calc Pharmacy 73.79 Normal [facility] Comment on above: Result Comment: PERF ORMED BY: [facility] [address] [place] [address] 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 Performed By: #### C MP, CBC ####[place] [id number] [facility] GFR/1.73 sq M.predicted MDRD (S/P/Bld) [Vol rate/Area] mL/min/{1.73_m2} Normal [facility] Comment on above: Performed By: #### C MP, CBC ####[place] [id number] [facility] Creatinine [Mass/volume] in Serum or PlasmaOrdered By: Mario Alberto Jose on 04-12-2023 Creatinine [Mass/Vol] 0.91 mg/dL Normal 0.60-1.20 [facility] Comment on above: Performed By: #### C MP, CBC ####[facility] Iww[address] ECG 12 lead ECGon 04-12-2023 ECG 12 lead ECG [facility] [place] [address] [place] [address] Electrocardiograph Report Signed Patient: Bhavna Kovacs MR#: [id number] : 2000 Acct:[id number] Age/Sex: 22 / F ADM Date: 04/12/23 Loc: ER Room: Type: [facility] ER Attending Dr: Ordering Provider: Mario [...] Alberto Jose MD 04/12/23 1500 Normal [facility] Erythrocyte distribution wid th [Ratio] by Automated countOrdered By: Mario Alberto Jose on 04-12-2023 Erythrocyte distribution width (RBC) [Ratio] 14.8 % Normal 11.9-15.3 [facility] [place] Comment on above: Performed By: #### C MP, CBC ####[facility] Pdo[address] Erythrocytes [#/volume] in B lood by Automated countOrdered By: Mario Alberto Jose on 04-12-2023 RBC (Bld) [#/Vol] 4.78 10*6/uL Normal 3.60-5.00 [facility] Comment on above: Performed By: #### C MP, CBC ####[address] Glucose [Mass/volume] in Ser um or PlasmaOrdered By: Mario Alberto Jose on 04-12-2023 Glucose [Mass/Vol] 92 mg/dL Normal 70-100 [facility] Comment on above: ADA recommended refe rence rangeRandom Glucose Reference Range is dependent on time and content of last meal. Glucose of more than 200 mg/dL in a nonstressed, ambulatory subject supports the diagnosis of Diabetes Mellitus. Result Comment: [place] om Glucose Reference Range is dependent on time and content of last meal. Glucose of more than 200 mg/dL in a nonstressed, ambulatory subject supports the diagnosis of Diabetes Mellitus. ADA recommended reference range Performed By: #### C MP, CBC ####[place] [id number] [facility] Hematocrit [Volume Fraction] of Blood by Automated countOrdered By: Mario Alberto Jose on 04-12-2023 Hematocrit (Bld) [Volume fraction] 40.6 % Normal 34.0-46.4 [facility] [place] Comment on above: Performed By: #### C MP, CBC ####[place] [id number] [facility] Hemoglobin [Mass/volume] in BloodOrdered By: Mario Alberto Jose on 04-12-2023 Hemoglobin (Bld) [Mass/Vol] 13.5 g/dL Normal 11.8-15.4 [facility] [place] Comment on above: Performed By: #### C MP, CBC ####[place] [id number] [facility] Leukocytes [#/volume] correc manjula for nucleated erythrocytes in Blood by Automated counOrdered By: Mario Alberto Jose on 04-12-2023 WBC corrected for nucl RBC Auto (Bld) [#/Vol] 9.7 10*3/uL 3.8-11.6 [facility] [place] Leukocytes [#/volume] in Blo od by Automated countOrdered By: Mario Alberto Jose on 04-12-2023 WBC (Bld) [#/Vol] 9.7 10*3/uL Normal 3.8-11.6 [facility] Comment on above: Performed By: #### C MP, CBC ####[address] Lymphocytes [#/volume] in Bl ood by Automated countOrdered By: Mario Alberto Jose on 04-12-2023 Lymphocytes (Bld) [#/Vol] 2.5 10*3/uL Normal 1.00-4.8 [facility] [place] Comment on above: Performed By: #### C MP, CBC ####[address] Lymphocytes/100 leukocytes i n Blood by Automated countOrdered By: Mario Alberto Jose on 04-12-2023 Lymphocytes/100 WBC (Bld) 25.4 % Normal . [facility] [place] Comment on above: Performed By: #### C MP, CBC ####[address] MCH [Entitic mass] by Automa manjula countOrdered By: Mario Alberto Jose on 04-12-2023 MCH (RBC) [Entitic mass] 28.2 pg Normal 24.7-34.3 [facility] [place] Comment on above: Performed By: #### C MP, CBC ####[address] MCHC Auto (RBC) [Mass/Vol]Or dered By: Mario Alberto Jose on 04-12-2023 MCHC (RBC) [Mass/Vol] 33.3 g/dL 32.0-35.0 [facility] MCV [Entitic volume] by Auto mated countOrdered By: Mario Alberto Jose on 04-12-2023 MCV (RBC) [Entitic vol] 84.9 fL Normal 80-100 [facility] [place] Comment on above: Performed By: #### C MP, CBC ####[address] Monocyte distribution width [Entitic volume] in Blood by AutomatedOrdered By: Mario Alberto Jose on 04-12-2023 Monocyte distribution width Auto (Bld) [Entitic vol] 15.89 % 0.00-20.00 [facility] [place] Neutrophils [#/volume] in Bl ood by Automated countOrdered By: Mario Alberto Jose on 04-12-2023 Neutrophils (Bld) [#/Vol] 6.6 10*3/uL Normal 1.8-7.7 [facility] [place] Comment on above: Performed By: #### C MP, CBC ####[place] [id number] [facility] No Panel InformationOrdered By: Mario Alberto Jose on 04-12-2023 Estimated GFR (CKD-EPI) > 60.0 mL/Min [facility] [place] [facility] Creatinine Clearance (Chem 73.79 [facility] [place] Nucleated erythrocytes [Pres ence] in Blood by Automated countOrdered By: Mario Alberto Jose on 04-12-2023 Nucleated RBC Auto Ql (Bld) 0.1 /100{WBC} 0-0.5 [facility] [place] Platelet mean volume [Entiti c volume] in Blood by Automated countOrdered By: Mario Alberto Jose on 04-12-2023 Platelet mean volume (Bld) [Entitic vol] 7.7 fL Normal 6.3-10.7 [facility] [place] Comment on above: Performed By: #### C MP, CBC ####[address] Platelets [#/volume] in Bloo d by Automated countOrdered By: Mario Alberto Jose on 04-12-2023 Platelets (Bld) [#/Vol] 307 10*3/uL Normal 150-450 [facility] [place] Comment on above: Performed By: #### C MP, CBC ####[place] [id number] [facility] Potassium [Moles/volume] in Serum or PlasmaOrdered By: Mario Alberto Jose on 04-12-2023 Potassium [Moles/Vol] 4.1 mmol/L Normal 3.5-5.1 [facility] Comment on above: Performed By: #### C MP, CBC ####[place] [id number] [facility] Protein [Mass/volume] in Ser um or PlasmaOrdered By: Mario Alberto Jose on 04-12-2023 Protein [Mass/Vol] 8.4 g/dL Normal 6.4-8.9 [facility] Comment on above: Performed By: #### C MP, CBC ####[address] Serum globulin measurement b y calculation (mass/volume)Ordered By: Mario Alberto Jose on 04-12-2023 Globulin (S) [Mass/Vol] 3.5 g/dL [facility] Comment on above: Performed By: #### C MP, CBC ####[address] Serum or plasma albumin/glob ulin mass ratioOrdered By: Mario Alberto Jose on 04-12-2023 Albumin/Globulin [Mass ratio] 1.4 {ratio} [facility] Comment on above: Performed By: #### C MP, CBC ####[address] Serum or plasma anion gap de terminationOrdered By: Mario Alberto Jose on 04-12-2023 Anion gap [Moles/Vol] 13.6 mmol/L Normal 6.0-15.0 [facility] Comment on above: Performed By: #### C MP, CBC ####[address] Sodium [Moles/volume] in Ser um or PlasmaOrdered By: Mario Alberto Jose on 04-12-2023 Sodium [Moles/Vol] 141 mmol/L Normal 136-145 [facility] Comment on above: Performed By: #### C MP, CBC ####[place] [id number] [facility] Urea nitrogen [Mass/volume] in Serum or PlasmaOrdered By: Mario Alberto Jose on 04-12-2023 Urea nitrogen [Mass/Vol] 9 mg/dL Normal 7-25 [facility] [place] Comment on above: Performed By: #### C MP, CBC ####[address] Alanine aminotransferase [En zymatic activity/volume] in Serum or PlasmaOrdered By: Milton Rivera on 03-23-2023 ALT [Catalytic activity/Vol] 8 U/L Normal 7-52 [facility] [place] Comment on above: Performed By: #### C K, PRL, CBC, CMP, LACTIC ####[address] Albumin [Mass/volume] in Ser um or Plasma by Bromocresol green (BCG) dye binding methoOrdered By: Milton Rivera on 03-23-2023 Albumin BCG dye [Mass/Vol] 4.9 g/dL 3.5-5.7 [facility] [place] Alkaline phosphatase [Enzyma tic activity/volume] in Serum or PlasmaOrdered By: Milton Rivera on 03-23-2023 ALP [Catalytic activity/Vol] 59 U/L Normal 34-104 [facility] [place] Comment on above: Performed By: #### C K, PRL, CBC, CMP, LACTIC ####[address] Aspartate aminotransferase [ Enzymatic activity/volume] in Serum or PlasmaOrdered By: Milton Rivera on 03-23-2023 AST [Catalytic activity/Vol] 20 U/L Normal 13-39 [facility] [place] Comment on above: Performed By: #### C K, PRL, CBC, CMP, LACTIC ####[address] Automated basophil %Ordered By: Milton Rivera on 03-23-2023 Basophils/100 WBC (Bld) 0.5 % Normal . [facility] [place] Comment on above: Performed By: #### C K, PRL, CBC, CMP, LACTIC ####[address] Automated basophil countOrde red By: Milton Rivera on 03-23-2023 Basophils (Bld) [#/Vol] 0.0 10*3/uL Normal 0.0-0.2 [facility] [place] Comment on above: Result Comment: PERF ORMED BY: [facility] [address] [facility] [place] [address] 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 Performed By: #### C K, PRL, CBC, CMP, LACTIC ####[address] Automated blood monocyte cou ntOrdered By: Milton Rivera on 03-23-2023 Monocytes (Bld) [#/Vol] 0.6 10*3/uL Normal 0.0-0.8 [facility] [place] Comment on above: Performed By: #### C K, PRL, CBC, CMP, LACTIC ####[address] Automated eosinophil %Ordere d By: Milton Rivera on 03-23-2023 Eosinophils/100 WBC (Bld) 0.4 % Normal . [facility] [place] Comment on above: Performed By: #### C K, PRL, CBC, CMP, LACTIC ####[address] Automated eosinophil countOr dered By: Milton Rivera on 03-23-2023 Eosinophils (Bld) [#/Vol] 0.0 10*3/uL Normal 0.0-0.45 [facility] [place] Comment on above: Performed By: #### C K, PRL, CBC, CMP, LACTIC ####[address] Automated monocyte %Ordered By: Milton Rivera on 03-23-2023 Monocytes/100 WBC (Bld) 6.9 % Normal . [facility] [place] Comment on above: Performed By: #### C K, PRL, CBC, CMP, LACTIC ####[address] Automated neutrophil %Ordere d By: Milton Rivera on 03-23-2023 Neutrophils/100 WBC (Bld) 55.0 % Normal . [facility] [place] Comment on above: Performed By: #### C K, PRL, CBC, CMP, LACTIC ####[address] Bilirubin.total [Mass/volume ] in Serum or PlasmaOrdered By: Milton Rivera on 03-23-2023 Bilirubin [Mass/Vol] 0.4 mg/dL Normal 0.3-1.0 [facility] Comment on above: Performed By: #### C K, PRL, CBC, CMP, LACTIC ####[place] [id number] [address] Calcium [Mass/volume] in Ser um or PlasmaOrdered By: Milton Rivera on 03-23-2023 Calcium [Mass/Vol] 9.6 mg/dL Normal 8.6-10.3 [facility] Comment on above: Performed By: #### C K, PRL, CBC, CMP, LACTIC ####[place] [id number] [address] Capillary blood glucose randi urement by glucometer (mass/volume)Ordered By: CRISTIANE SHARMA on 03-23-2023 Glucose [Mass/Vol] 88 mg/dL Normal [facility] Comment on above: Random Glucose Refer ence Range is dependent on time and content of last meal. Glucose of more than 200 mg/dL in a nonstressed, ambulatory subject supports the diagnosis of Diabetes Mellitus. Result Comment: [place] om Glucose Reference Range is dependent on time and content of last meal. Glucose of more than 200 mg/dL in a nonstressed, ambulatory subject supports the diagnosis of Diabetes Mellitus. Performed By: #### G LULS #### Point of Care testing , Carbon dioxide, total [Moles /volume] in Serum or PlasmaOrdered By: Milton Rivera on 03-23-2023 CO2 [Moles/Vol] 21.8 mmol/L Normal 21.0-31.[address] [facility] Comment on above: Performed By: #### C K, PRL, CBC, CMP, LACTIC ####[place] [id number] [place] [id number] [facility] Chloride [Moles/volume] in S alexis or PlasmaOrdered By: Milton Rivera on 03-23-2023 Chloride [Moles/Vol] 105 mmol/L Normal 98-107 [facility] Comment on above: Performed By: #### C K, PRL, CBC, CMP, LACTIC ####[facility] [place] [id number] [facility] Complete Blood Count Auto Di ffon 03-23-2023 Mean Corpuscular HGB Conc 33.5 g/dL Normal 32.0-35.0 [facility] Comment on above: Performed By: #### C K, PRL, CBC, CMP, LACTIC ####[address] Monocytes/100 WBC (Bld) 21.12 % High 0.00-20.00 [facility] Comment on above: Result Comment: For adults in ED, MDW > 20.0 may be associated with a higher risk of sepsis during the first 12 hrs of hospital admission Performed By: #### C K, PRL, CBC, CMP, LACTIC ####[address] NRBC% 0.1 /100{WBC} Normal 0-0.5 [facility] Comment on above: Performed By: #### C K, PRL, CBC, CMP, LACTIC ####[address] Comprehensive Metabolic Pane basim 03-23-2023 Albumin [Mass/Vol] 4.9 g/dL Normal 3.5-5.7 [facility] Comment on above: Performed By: #### C K, PRL, CBC, CMP, LACTIC ####[address] Creatinine Clr Calc Pharmacy 85.00 Normal [facility] Comment on above: Performed By: #### C K, PRL, CBC, CMP, LACTIC ####[address] GFR/1.73 sq M.predicted MDRD (S/P/Bld) [Vol rate/Area] mL/min/{1.73_m2} Normal [facility] Comment on above: Performed By: #### C K, PRL, CBC, CMP, LACTIC ####[address] Creatine kinase [Enzymatic a ctivity/volume] in Serum or PlasmaOrdered By: Milton Rivera on 03-23-2023 CK [Catalytic activity/Vol] 45 U/L Normal 30-223 [facility] [place] Comment on above: Result Comment: PERF ORMED BY: [place] [address] 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 Performed By: #### C K, PRL, CBC, CMP, LACTIC ####[facility] Pai[address] Creatinine [Mass/volume] in Serum or PlasmaOrdered By: Milton Rivera on 03-23-2023 Creatinine [Mass/Vol] 0.79 mg/dL Normal 0.60-1.20 [facility] Comment on above: Performed By: #### C K, PRL, CBC, CMP, LACTIC ####[place] [id number] [place] [id number] [facility] ECG 12 lead ECGon 03-23-2023 ECG 12 lead ECG [facility] [facility] [place] [address] Electrocardiograph Report Signed Patient: Bhavna Kovacs MR#: [id number] 668 : 2000 Acct:[id number] Age/Sex: 22 / F ADM Date: 03/23/23 Loc: ER Room: Type: [facility] ER Attending Dr: Ordering Provider: Milton [...] Biatrial enlargement Confirmed by Bobby Gallagher DO ([id number]) on 03/23/2023 7:47:54 PM Referred By: Electronically Signed By:Bobby Gallagher DO Transcribed By: MUS Signed By Bobby Gallagher DO 1945 Normal [facility] Erythrocyte distribution wid th [Ratio] by Automated countOrdered By: Milton Rivera on 03-23-2023 Erythrocyte distribution width (RBC) [Ratio] 15.2 % Normal 11.9-15.3 [facility] Comment on above: Performed By: #### C K, PRL, CBC, CMP, LACTIC ####[place] [address] [place] [id number] [facility] Erythrocytes [#/volume] in B lood by Automated countOrdered By: Milton Rivera on 03-23-2023 RBC (Bld) [#/Vol] 4.78 10*6/uL Normal 3.60-5.00 [facility] Comment on above: Performed By: #### C K, PRL, CBC, CMP, LACTIC ####[place] [address] [place] [id number] [facility] Glucose Poct Glucometerson 0 03-23-2023 Commemt1 Glu2: Cleaned Meter Normal [facility] Comment on above: Result Comment: PERF ORMED BY: [facility] [address] [place] [address] 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 Performed By: #### G LULS #### Point of Care testing , Glucose [Mass/volume] in Ser um or PlasmaOrdered By: Milton Rivera on 03-23-2023 Glucose [Mass/Vol] 81 mg/dL Normal 70-100 [facility] Comment on above: ADA recommended refe rence rangeRandom Glucose Reference Range is dependent on time and content of last meal. Glucose of more than 200 mg/dL in a nonstressed, ambulatory subject supports the diagnosis of Diabetes Mellitus. Result Comment: [place] om Glucose Reference Range is dependent on time and content of last meal. Glucose of more than 200 mg/dL in a nonstressed, ambulatory subject supports the diagnosis of Diabetes Mellitus. ADA recommended reference range Performed By: #### C K, PRL, CBC, CMP, LACTIC ####[place] [address] [place] [id number] [facility] Hematocrit [Volume Fraction] of Blood by Automated countOrdered By: Milton Rivera on 03-23-2023 Hematocrit (Bld) [Volume fraction] 41.0 % Normal 34.0-46.4 [facility] Comment on above: Performed By: #### C K, PRL, CBC, CMP, LACTIC ####[place] [address] [place] [id number] [facility] Hemoglobin [Mass/volume] in BloodOrdered By: Milton Rivera on 03-23-2023 Hemoglobin (Bld) [Mass/Vol] 13.8 g/dL Normal 11.8-15.4 [facility] Comment on above: Performed By: #### C K, PRL, CBC, CMP, LACTIC ####[place] [address] [place] [address] [facility] Lactate [Moles/volume] in Se rum or PlasmaOrdered By: Milton Rivera on 03-23-2023 Lactate [Moles/Vol] 0.8 mmol/L Normal 0.5-2.2 [facility] Comment on above: Result Comment: PERF ORMED BY: [facility] [address] [place] [id number] 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 Performed By: #### C K, PRL, CBC, CMP, LACTIC ####[place] [address] [place] [address] [facility] Lamotrigine (Lamictal)on Lamotrigine (Lamictal) 2.0 ug/mL Normal 2.0-20.0 [facility] Comment on above: Result Comment: Dete ction Limit = 1.0 Performed at: - [facility] [id number] Body And Frame Man: Sina Hills MD, Phone: [phone] PERFORMED BY: [facility] [address] [place] [id number] 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 Performed By: #### L AMOT ####[facility] , Leukocytes [#/volume] correc manjula for nucleated erythrocytes in Blood by Automated counOrdered By: Milton Rivera on 03-23-2023 WBC corrected for nucl RBC Auto (Bld) [#/Vol] 8.9 10*3/uL 3.8-11.6 [facility] Leukocytes [#/volume] in Blo od by Automated countOrdered By: Milton Rivera on 03-23-2023 WBC (Bld) [#/Vol] 8.9 10*3/uL Normal 3.8-11.6 [facility] Comment on above: Performed By: #### C K, PRL, CBC, CMP, LACTIC ####[place] [address] [place] [id number] [facility] Levetiracetam (Keppra)on levETIRAcetam [Mass/Vol] 15.5 ug/mL Normal 10.0-40.0 [facility] Comment on above: Result Comment: Perf ormed at: BN - [facility] [address] [id number] [employer] And [employer] Man: Sina Hills MD, Phone: [phone] PERFORMED BY: [facility] [address] [place] [address] 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 Performed By: #### L EV ####[facility] , Lymphocytes [#/volume] in Bl ood by Automated countOrdered By: Milton Rivera on 03-23-2023 Lymphocytes (Bld) [#/Vol] 3.3 10*3/uL Normal 1.00-4.8 [facility] Comment on above: Performed By: #### C K, PRL, CBC, CMP, LACTIC ####[address] Lymphocytes/100 leukocytes i n Blood by Automated countOrdered By: Milton Rivera on 03-23-2023 Lymphocytes/100 WBC (Bld) 37.2 % Normal . [facility] Comment on above: Performed By: #### C K, PRL, CBC, CMP, LACTIC ####[address] MCH [Entitic mass] by Automa manjula countOrdered By: Milton Rivera on 03-23-2023 MCH (RBC) [Entitic mass] 28.8 pg Normal 24.7-34.3 [facility] Comment on above: Performed By: #### C K, PRL, CBC, CMP, LACTIC ####[address] [place] [address] [facility] MCHC Auto (RBC) [Mass/Vol]Or dered By: Milton Rivera on 03-23-2023 MCHC (RBC) [Mass/Vol] 33.5 g/dL 32.0-35.0 [facility] MCV [Entitic volume] by Auto mated countOrdered By: Milton Rivera on 03-23-2023 MCV (RBC) [Entitic vol] 85.9 fL Normal 80-100 [facility] Comment on above: Performed By: #### C K, PRL, CBC, CMP, LACTIC ####[place] [address] [address] Monocyte distribution width [Entitic volume] in Blood by AutomatedOrdered By: Milton Rivera on 03-23-2023 Monocyte distribution width Auto (Bld) [Entitic vol] 21.12 % 0.00-20.00 [facility] Comment on above: For adults in ED, W > 20.0 may be associated with a higher risk of sepsis during the first 12 hrs of hospital admission Neutrophils [#/volume] in Bl ood by Automated countOrdered By: Milton Rivera on 03-23-2023 Neutrophils (Bld) [#/Vol] 4.9 10*3/uL Normal 1.8-7.7 [facility] Comment on above: Performed By: #### C K, PRL, CBC, CMP, LACTIC ####[address] No Panel InformationOrdered By: Margarita Gallo on 03-23-2023 Lamotrigine (Lamictal) Level 2.0 ug/mL 2.0-20.0 [facility] Comment on above: Detection Limit = 1. 0Performed at: BN - [facility] [address] [id number] Director: Sina Hills MD, Phone: [phone] Levetiracetam (Keppra) Level 15.5 ug/mL 10.0-40.0 [facility] Comment on above: Performed at: BN - [facility] [address] [id number] Director: Sina Hills MD, Phone: [phone] No Panel InformationOrdered By: PROVIDER TEMP on 03-23-2023 Bedside Glucose Comment Glu2: cleaned meter [facility] No Panel InformationOrdered By: Milton Rivera on 03-23-2023 Estimated GFR (CKD-EPI) > 60.0 mL/Min [facility] Creatinine Clearance (Chem 85.00 [facility] Nucleated erythrocytes [Pres ence] in Blood by Automated countOrdered By: Milton Rivera on 03-23-2023 Nucleated RBC Auto Ql (Bld) 0.1 /100{WBC} 0-0.5 [facility] Platelet mean volume [Entiti c volume] in Blood by Automated countOrdered By: Milton Rivera on 03-23-2023 Platelet mean volume (Bld) [Entitic vol] 8.6 fL Normal 6.3-10.7 [facility] Comment on above: Performed By: #### C K, PRL, CBC, CMP, LACTIC ####[place] [address] [address] Platelets [#/volume] in Bloo d by Automated countOrdered By: Milton Rivera on 03-23-2023 Platelets (Bld) [#/Vol] 257 10*3/uL Normal 150-450 [facility] Comment on above: Performed By: #### C K, PRL, CBC, CMP, LACTIC ####[place] [address] [place] [id number] [facility] Potassium [Moles/volume] in Serum or PlasmaOrdered By: Milton Rievra on 03-23-2023 Potassium [Moles/Vol] 4.3 mmol/L Normal 3.5-5.1 [facility] Comment on above: Performed By: #### C K, PRL, CBC, CMP, LACTIC ####[place] [address] [place] [id number] [facility] Prolactinon 03-23-2023 Prolactin 23.65 ng/mL Normal 3.34-26.72 [facility] Comment on above: Result Comment: PERF ORMED BY: [facility] [address] [place] [id number] 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 Performed By: #### C K, PRL, CBC, CMP, LACTIC ####[address] Prolactin [Mass/volume] in S alexis or PlasmaOrdered By: Milton Rivera on 03-23-2023 Prolactin [Mass/Vol] 23.65 ng/mL 3.34-26.72 [facility] Protein [Mass/volume] in Ser um or PlasmaOrdered By: Milton Rivera on 03-23-2023 Protein [Mass/Vol] 8.1 g/dL Normal 6.4-8.9 [facility] Comment on above: Performed By: #### C K, PRL, CBC, CMP, LACTIC ####[address] Serum globulin measurement b y calculation (mass/volume)Ordered By: Milton Rivera on 03-23-2023 Globulin (S) [Mass/Vol] 3.2 g/dL [facility] Comment on above: Performed By: #### C K, PRL, CBC, CMP, LACTIC ####[address] Serum or plasma albumin/glob ulin mass ratioOrdered By: Milton Rivera on 03-23-2023 Albumin/Globulin [Mass ratio] 1.5 {ratio} [facility] Comment on above: Performed By: #### C K, PRL, CBC, CMP, LACTIC ####[address] Serum or plasma anion gap de terminationOrdered By: iMlton Rivera on 03-23-2023 Anion gap [Moles/Vol] 16.5 mmol/L High 6.0-15.0 [facility] Comment on above: Performed By: #### C K, PRL, CBC, CMP, LACTIC ####[address] Sodium [Moles/volume] in Ser um or PlasmaOrdered By: Milton Rivera on 03-23-2023 Sodium [Moles/Vol] 139 mmol/L Normal 136-145 [facility] Comment on above: Performed By: #### C K, PRL, CBC, CMP, LACTIC ####[place] [address] [address] Urea nitrogen [Mass/volume] in Serum or PlasmaOrdered By: Milton Rivera on 03-23-2023 Urea nitrogen [Mass/Vol] 12 mg/dL Normal 7-25 [facility] Comment on above: Performed By: #### C K, PRL, CBC, CMP, LACTIC ####[facility] Alanine aminotransferase [En zymatic activity/volume] in Serum or PlasmaOrdered By: Luz Fiore on 03-11-2023 ALT [Catalytic activity/Vol] 6 U/L Low 7-52 [facility] Comment on above: Performed By: #### C BC, CMP #### [place] [address] [place] #### LEV #### [facility] , Albumin [Mass/volume] in Ser um or Plasma by Bromocresol green (BCG) dye binding methoOrdered By: Luz Fiore on 03-11-2023 Albumin BCG dye [Mass/Vol] 4.5 g/dL 3.5-5.7 [facility] Alkaline phosphatase [Enzyma tic activity/volume] in Serum or PlasmaOrdered By: Luz Fiore on 03-11-2023 ALP [Catalytic activity/Vol] 55 U/L Normal 34-104 [facility] Comment on above: Performed By: #### C BC, CMP #### [facility] [address] [place] [address] [place] #### LEV #### [facility] , Aspartate aminotransferase [ Enzymatic activity/volume] in Serum or PlasmaOrdered By: Luz Fiore on 03-11-2023 AST [Catalytic activity/Vol] 14 U/L Normal 13-39 [facility] Comment on above: Performed By: #### C BC, CMP #### [facility] [address] [place] [address] [place] #### LEV #### [facility] , Automated basophil %Ordered By: Luzjennifer Fiore on 03-11-2023 Basophils/100 WBC (Bld) 0.5 % Normal . [facility] Comment on above: Performed By: #### C BC, CMP #### [place] [address] [place] #### LEV #### [facility] , Automated basophil countOrde red By: Luz Fiore on 03-11-2023 Basophils (Bld) [#/Vol] 0.0 10*3/uL Normal 0.0-0.2 [facility] Comment on above: Result Comment: PERF ORMED BY: [place] [address] 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 Performed By: #### C BC, CMP #### [place] [address] [place] #### LEV #### [facility] , Automated blood monocyte cou ntOrdered By: Luz Fiore on 03-11-2023 Monocytes (Bld) [#/Vol] 0.5 10*3/uL Normal 0.0-0.8 [facility] Comment on above: Performed By: #### C BC, CMP #### [address] #### LEV #### [facility] , Automated eosinophil %Ordere d By: Luz Fiore on 03-11-2023 Eosinophils/100 WBC (Bld) 0.5 % Normal . [facility] Comment on above: Performed By: #### C BC, CMP #### [facility] [address] [place] [address] [place] #### LEV #### [facility] , Automated eosinophil countOr dered By: Luz Fiore on 03-11-2023 Eosinophils (Bld) [#/Vol] 0.0 10*3/uL Normal 0.0-0.45 [facility] Comment on above: Performed By: #### C BC, CMP #### [facility] [address] [place] [address] [place] #### LEV #### [facility] , Automated erythrocytes count in urine sediment (number/area)Ordered By: Luz Fiore on 03-11-2023 RBC Auto (Urine sed) [#/Area] 3-4 [HPF] 0-4 [facility] Automated leukocytes count i n urine sediment (number/area)Ordered By: Luz Fiore on 03-11-2023 WBC Auto (Urine sed) [#/Area] 3-4 [HPF] 0-4 [facility] Automated monocyte %Ordered By: Luz Fiore on 03-11-2023 Monocytes/100 WBC (Bld) 5.8 % Normal . [facility] Comment on above: Performed By: #### C BC, CMP #### [place] [address] [place] #### LEV #### [facility] , Automated neutrophil %Ordere d By: Luz Fiore on 03-11-2023 Neutrophils/100 WBC (Bld) 69.5 % Normal . [facility] Comment on above: Performed By: #### C BC, CMP #### [place] [address] [place] #### LEV #### [facility] , Automated urine color determ inationOrdered By: Luz Fiore on 03-11-2023 Color (U) Yellow Normal Yellow [facility] Comment on above: Order Comment: Name Collection Type:: Clean-Voided Midstream Performed By: #### A DDONUAPLUS #### [address] Bilirubin Test strip Ql (U)O rdered By: Luz Fiore on 03-11-2023 Bilirubin Ql (U) Negative Negative [facility] Bilirubin.total [Mass/volume ] in Serum or PlasmaOrdered By: Luz Fiore on 03-11-2023 Bilirubin [Mass/Vol] 0.4 mg/dL Normal 0.3-1.0 [facility] Comment on above: Performed By: #### C BC, CMP #### [facility] [address] [place] [address] [place] #### LEV #### [facility] , Calcium [Mass/volume] in Ser um or PlasmaOrdered By: Luz Fiore on 03-11-2023 Calcium [Mass/Vol] 9.3 mg/dL Normal 8.6-10.3 [facility] Comment on above: Performed By: #### C BC, CMP #### [place] [address] [place] #### LEV #### [facility] , Carbon dioxide, total [Moles /volume] in Serum or PlasmaOrdered By: Luz Fiore on 03-11-2023 CO2 [Moles/Vol] 23.3 mmol/L Normal 21.0-31.[address] [facility] Comment on above: Performed By: #### C BC, CMP #### [facility] [address] [place] [address] [place] #### LEV #### [facility] , Chloride [Moles/volume] in S alexis or PlasmaOrdered By: Luz Fiore on 03-11-2023 Chloride [Moles/Vol] 107 mmol/L Normal 98-107 [facility] Comment on above: Performed By: #### C BC, CMP #### [facility] [address] [place] [address] [place] #### LEV #### [facility] , Complete Blood Count Auto Di ffon 03-11-2023 Mean Corpuscular HGB Conc 33.7 g/dL Normal 32.0-35.0 [facility] Comment on above: Performed By: #### C BC, CMP #### [facility] [address] [place] [address] [place] #### LEV #### [facility] , Monocytes/100 WBC (Bld) 17.06 % Normal 0.00-20.00 [facility] Comment on above: Performed By: #### C BC, CMP #### [place] [address] [place] #### LEV #### [facility] , NRBC% 0.0 /100{WBC} Normal 0-0.5 [facility] Comment on above: Performed By: #### C BC, CMP #### [facility] [address] [place] [address] [place] #### LEV #### [facility] , Comprehensive Metabolic Pane basim 03-11-2023 Albumin [Mass/Vol] 4.5 g/dL Normal 3.5-5.7 [facility] Comment on above: Performed By: #### C BC, CMP #### [place] [address] [place] #### LEV #### [facility] , Creatinine Clr Calc Pharmacy 65.12 Normal [facility] Comment on above: Result Comment: PERF ORMED BY: [place] [address] 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 Performed By: #### C BC, CMP #### [place] [address] [place] #### LEV #### [facility] , GFR/1.73 sq M.predicted MDRD (S/P/Bld) [Vol rate/Area] mL/min/{1.73_m2} Normal [facility] Comment on above: Performed By: #### C BC, CMP #### [facility] [address] [place] [address] [place] #### LEV #### [facility] , Creatinine [Mass/volume] in Serum or PlasmaOrdered By: Luz Fiore on 03-11-2023 Creatinine [Mass/Vol] 0.91 mg/dL Normal 0.60-1.20 [facility] Comment on above: Performed By: #### C BC, CMP #### [address] #### LEV #### [facility] , Dipstick and Microscopicon 0 03-11-2023 Appearance (U) Clear Normal Clear [facility] Comment on above: Order Comment: Name Collection Type:: Clean-Voided Midstream Performed By: #### A DDONUAPLUS #### [address] Bacteria,Urine 1+ High None Seen [facility] Comment on above: Order Comment: Name Collection Type:: Clean-Voided Midstream Performed By: #### A DDONUAPLUS #### [address] Bilirubin,Urine Negative Normal Negative [facility] Comment on above: Order Comment: Name Collection Type:: Clean-Voided Midstream Performed By: #### A DDONUAPLUS #### [address] Glucose Ql (U) Normal Normal Normal [facility] Comment on above: Order Comment: Name Collection Type:: Clean-Voided Midstream Performed By: #### A DDONUAPLUS #### [address] Hyaline Casts,Urine 0-8 Normal 0-8 [facility] Comment on above: Order Comment: Name Collection Type:: Clean-Voided Midstream Result Comment: PERF ORMED BY: [place] [address] 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 Performed By: #### A DDONUAPLUS #### [address] Ketones Ql (U) Negative Normal Negative [facility] Comment on above: Order Comment: Name Collection Type:: Clean-Voided Midstream Performed By: #### A DDONUAPLUS #### [address] Leukocyte esterase Test strip Ql (U) Negative Normal Negative [facility] Comment on above: Order Comment: Name Collection Type:: Clean-Voided Midstream Performed By: #### A DDONUAPLUS #### [address] Nitrite,Urine Negative Normal Negative [facility] Comment on above: Order Comment: Name Collection Type:: Clean-Voided Midstream Performed By: #### A DDONUAPLUS #### [address] Occult Blood,Urine 1+ High Negative [facility] Comment on above: Order Comment: Name Collection Type:: Clean-Voided Midstream Result Comment: PERF ORMED BY: [place] [address] 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 Performed By: #### A DDONUAPLUS #### [address] Protein,Urine Negative Normal Negative [facility] Comment on above: Order Comment: Name Collection Type:: Clean-Voided Midstream Performed By: #### A DDONUAPLUS #### [address] RBC,Urine 3-4 Normal 0-4 [facility] Comment on above: Order Comment: Name Collection Type:: Clean-Voided Midstream Performed By: #### A DDONUAPLUS #### [address] Specificy Mcgrath,Urine 1.019 Normal 1.001-1.03 0 [facility] Comment on above: Order Comment: Name Collection Type:: Clean-Voided Midstream Performed By: #### A DDONUAPLUS #### [place] [address] [place] Squamous Epithelial Cell,Urine 1-2 Normal 0-2 [facility] Comment on above: Order Comment: Name Collection Type:: Clean-Voided Midstream Performed By: #### A DDONUAPLUS #### [address] Urobilinogen,Urine Normal Normal Normal [facility] Comment on above: Order Comment: Name Collection Type:: Clean-Voided Midstream Performed By: #### A DDONUAPLUS #### [facility] [address] WBC,Urine 3-4 Normal 0-4 [facility] Comment on above: Order Comment: Name Collection Type:: Clean-Voided Midstream Performed By: #### A DDONUAPLUS #### [facility] [address] [place] [address] ECG 12 lead ECGon 03-11-2023 ECG 12 lead ECG [facility] [place] [address] [place] [address] Electrocardiograph Report Signed Patient: Bhavna Kovacs MR#: [id number] 668 : 2000 Acct:[id number] Age/Sex: 22 / F ADM Date: 03/11/23 Loc: ER Room: Type: [facility] ER Attending Dr: Ordering Provider: Luz [...] was found Confirmed by LUZ FIORE DO ([id number]) on 03/11/2023 4:31:09 PM Referred By: Electronically Signed By:LUZ FIORE DO Transcribed By: MUS Signed By Luz Fiore DO 03/11 1631 Normal [facility] Erythrocyte distribution wid th [Ratio] by Automated countOrdered By: Luz Fiore on 03-11-2023 Erythrocyte distribution width (RBC) [Ratio] 15.3 % Normal 11.9-15.3 [facility] Comment on above: Performed By: #### C BC, CMP #### [place] [address] [place] #### LEV #### [facility] , Erythrocytes [#/volume] in B lood by Automated countOrdered By: Luz Fiore on 03-11-2023 RBC (Bld) [#/Vol] 4.36 10*6/uL Normal 3.60-5.00 [facility] Comment on above: Performed By: #### C BC, CMP #### [place] [address] [place] #### LEV #### [facility] , Glucose [Mass/volume] in Ser um or PlasmaOrdered By: Luz Fiore on 03-11-2023 Glucose [Mass/Vol] 89 mg/dL Normal 70-100 [facility] Comment on above: ADA recommended refe rence rangeRandom Glucose Reference Range is dependent on time and content of last meal. Glucose of more than 200 mg/dL in a nonstressed, ambulatory subject supports the diagnosis of Diabetes Mellitus. Result Comment: [place] om Glucose Reference Range is dependent on time and content of last meal. Glucose of more than 200 mg/dL in a nonstressed, ambulatory subject supports the diagnosis of Diabetes Mellitus. ADA recommended reference range Performed By: #### C BC, CMP #### [place] [address] [place] #### LEV #### [facility] , Hematocrit [Volume Fraction] of Blood by Automated countOrdered By: Luz Fiore on 03-11-2023 Hematocrit (Bld) [Volume fraction] 37.1 % Normal 34.0-46.4 [facility] Comment on above: Performed By: #### C BC, CMP #### [place] [address] [place] #### LEV #### [facility] , Hemoglobin [Mass/volume] in BloodOrdered By: Luz Fiore on 03-11-2023 Hemoglobin (Bld) [Mass/Vol] 12.5 g/dL Normal 11.8-15.4 [facility] Comment on above: Performed By: #### C BC, CMP #### [facility] [address] [place] [address] [place] #### LEV #### [facility] , Ketones Auto test strip (U) [Mass/Vol]Ordered By: Luz Fiore on 03-11-2023 Ketones (U) [Mass/Vol] Negative Negative [facility] - UrinalysisOrder ed By: Luz Fiore on 03-11-2023 Hyaline casts LM Ql (Urine sed) 0-8 [LPF] 0-8 [facility] Leukocytes [#/volume] correc manjula for nucleated erythrocytes in Blood by Automated counOrdered By: Luz Fiore on 03-11-2023 WBC corrected for nucl RBC Auto (Bld) [#/Vol] 8.2 10*3/uL 3.8-11.6 [facility] Leukocytes [#/volume] in Blo od by Automated countOrdered By: Luz Fiore on 03-11-2023 WBC (Bld) [#/Vol] 8.2 10*3/uL Normal 3.8-11.6 [facility] Comment on above: Performed By: #### C BC, CMP #### [place] [address] [place] #### LEV #### [facility] , Levetiracetam (Keppra)on levETIRAcetam [Mass/Vol] 30.8 ug/mL Normal 10.0-40.0 [facility] Comment on above: Result Comment: Perf ormed at: BN - [facility] [address] [id number] Body And Frame Man: Sina Hills MD, Phone: [phone] PERFORMED BY: [place] [address] 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 Performed By: #### C BC, CMP #### [place] [address] [place] #### LEV #### [facility] , Lymphocytes [#/volume] in Bl ood by Automated countOrdered By: Luz Fiore on 03-11-2023 Lymphocytes (Bld) [#/Vol] 2.0 10*3/uL Normal 1.00-4.8 [facility] Comment on above: Performed By: #### C BC, CMP #### [facility] [address] [place] [address] [place] #### LEV #### [facility] , Lymphocytes/100 leukocytes i n Blood by Automated countOrdered By: Luz Fiore on 03-11-2023 Lymphocytes/100 WBC (Bld) 23.7 % Normal . [facility] Comment on above: Performed By: #### C BC, CMP #### [place] [address] [place] #### LEV #### [facility] , MCH [Entitic mass] by Automa manjula countOrdered By: Luz Fiore on 03-11-2023 MCH (RBC) [Entitic mass] 28.7 pg Normal 24.7-34.3 [facility] Comment on above: Performed By: #### C BC, CMP #### [place] [address] [place] #### LEV #### [facility] , MCHC Auto (RBC) [Mass/Vol]Or dered By: Luz Fiore on 03-11-2023 MCHC (RBC) [Mass/Vol] 33.7 g/dL 32.0-35.0 [facility] MCV [Entitic volume] by Auto mated countOrdered By: Luz Fiore on 03-11-2023 MCV (RBC) [Entitic vol] 85.1 fL Normal 80-100 [facility] Comment on above: Performed By: #### C BC, CMP #### [place] [address] [place] #### LEV #### [facility] , Monocyte distribution width [Entitic volume] in Blood by AutomatedOrdered By: Luz Fiore on 03-11-2023 Monocyte distribution width Auto (Bld) [Entitic vol] 17.06 % 0.00-20.00 [facility] Neutrophils [#/volume] in Bl ood by Automated countOrdered By: Luz Fiore on 03-11-2023 Neutrophils (Bld) [#/Vol] 5.7 10*3/uL Normal 1.8-7.7 [facility] Comment on above: Performed By: #### C BC, CMP #### [facility] [address] [place] [address] [place] #### LEV #### [facility] , Nitrite Test strip Ql (U)Ord ered By: Luz Fiore on 03-11-2023 Nitrite Ql (U) Negative Negative [facility] No Panel InformationOrdered By: Luz Fiore on 03-11-2023 Levetiracetam (Keppra) Level 30.8 ug/mL 10.0-40.0 [facility] Comment on above: Performed at: - [address] [id number] Director: Sina Hills MD, Phone: [phone] Estimated GFR (CKD-EPI) > 60.0 mL/Min [facility] Creatinine Clearance (Chem 65.12 [facility] Nucleated erythrocytes [Pres ence] in Blood by Automated countOrdered By: Luz Fiore on 03-11-2023 Nucleated RBC Auto Ql (Bld) 0.0 /100{WBC} 0-0.5 [facility] Platelet mean volume [Entiti c volume] in Blood by Automated countOrdered By: Luz Fiore on 03-11-2023 Platelet mean volume (Bld) [Entitic vol] 8.0 fL Normal 6.3-10.7 [facility] Comment on above: Performed By: #### C BC, CMP #### [facility] [address] [place] [address] [place] #### LEV #### [facility] , Platelets [#/volume] in Bloo d by Automated countOrdered By: Luz Fiore on 03-11-2023 Platelets (Bld) [#/Vol] 272 10*3/uL Normal 150-450 [facility] Comment on above: Performed By: #### C BC, CMP #### [place] [address] [place] #### LEV #### [facility] , Potassium [Moles/volume] in Serum or PlasmaOrdered By: Luz Fiore on 03-11-2023 Potassium [Moles/Vol] 3.6 mmol/L Normal 3.5-5.1 [facility] Comment on above: Performed By: #### C BC, CMP #### [place] [address] [place] #### LEV #### [facility] , Protein Auto test strip (U) [Mass/Vol]Ordered By: Luz Fiore on 03-11-2023 Protein (U) [Mass/Vol] Negative Negative [facility] Protein [Mass/volume] in Ser um or PlasmaOrdered By: Luz Fiore on 03-11-2023 Protein [Mass/Vol] 7.4 g/dL Normal 6.4-8.9 [facility] Comment on above: Performed By: #### C BC, CMP #### [place] [address] [place] #### LEV #### [facility] , Serum globulin measurement b y calculation (mass/volume)Ordered By: Luz Fiore on 03-11-2023 Globulin (S) [Mass/Vol] 2.9 g/dL [facility] Comment on above: Performed By: #### C BC, CMP #### [facility] [address] [place] [address] [place] #### LEV #### [facility] , Serum or plasma albumin/glob ulin mass ratioOrdered By: Luz Fiore on 03-11-2023 Albumin/Globulin [Mass ratio] 1.6 {ratio} [facility] Comment on above: Performed By: #### C BC, CMP #### [place] [address] [place] #### LEV #### [facility] , Serum or plasma anion gap de terminationOrdered By: Luz Fiore on 03-11-2023 Anion gap [Moles/Vol] 12.3 mmol/L Normal 6.0-15.0 [facility] Comment on above: Performed By: #### C BC, CMP #### [place] [address] [place] #### LEV #### [facility] , Sodium [Moles/volume] in Ser um or PlasmaOrdered By: Luz Fiore on 03-11-2023 Sodium [Moles/Vol] 139 mmol/L Normal 136-145 [facility] Comment on above: Performed By: #### C NARCISO, CMP #### [place] [address] [place] #### LEV #### [facility] , Specific gravity Auto test s trip (U) [Rel density]Ordered By: Luz Fiore on 03-11-2023 Specific gravity (U) [Rel density] 1.019 1.001-1.03 0 [facility] Squamous epithelial cells de tection in urine sediment by light microscopyOrdered By: Luz Fiore on 03-11-2023 Epithelial cells.squamous LM Ql (Urine sed) 1-2 [HPF] 0-2 [facility] Urea nitrogen [Mass/volume] in Serum or PlasmaOrdered By: Luz Fiore on 03-11-2023 Urea nitrogen [Mass/Vol] 10 mg/dL Normal 7-25 [facility] Comment on above: Performed By: #### C BC, CMP #### [place] [address] [place] #### LEV #### [facility] , Urine bacteria detection by automated methodOrdered By: Luz Fiore on 03-11-2023 Bacteria Auto Ql (U) 1+ None Seen [facility] Urine clarity by refractomet ry automatedOrdered By: Luz Fiore on 03-11-2023 Clarity Refractometry automated (U) Clear Clear [facility] Urine glucose measurement by automated test strip (mass/volume)Ordered By: Luz Fiore on 03-11-2023 Glucose Auto test strip (U) [Mass/Vol] Normal mg/dL Normal [facility] Urine hemoglobin detection b y automated test stripOrdered By: Luz Fiore on 03-11-2023 Hemoglobin Auto test strip Ql (U) 1+ Negative [facility] Urine leukocyte esterase det ection by automated test stripOrdered By: Luz Fiore on 03-11-2023 Leukocyte esterase Auto test strip Ql (U) Negative Negative [facility] Urine pH measurement by auto mated test stripOrdered By: Luz Fiore on 03-11-2023 pH (U) 7.0 [pH] Normal 5.0-9.0 [facility] Comment on above: Order Comment: Name Collection Type:: Clean-Voided Midstream Performed By: #### A DDONUAPLUS #### [address] Urobilinogen Auto test strip (U) [Mass/Vol]Ordered By: Luz Fiore on 03-11-2023 Urobilinogen (U) [Mass/Vol] Normal mg/dL Normal [facility] CBC with Auto Differentialon 02-06-2023 Basophils (Bld) [#/Vol] [facility] Basophils/100 WBC (Bld) 0 % 0 - 2 % [facility] Eosinophils (Bld) [#/Vol] [facility] [place] [employer] Eosinophils/100 WBC (Bld) 0 % Low 1 - 4 % [facility] Erythrocyte distribution width (RBC) [Ratio] 12.8 % 11.8 - 14.4 % [facility] Hematocrit (Bld) [Volume fraction] 40.5 % 36.3 - 47.1 % [facility] Hemoglobin (Bld) [Mass/Vol] 13.7 g/dL 11.9 - 15.1 g/dL [facility] Immature granulocytes (Bld) [#/Vol] [facility] Immature granulocytes/100 WBC (Bld) 0 % 0 [facility] Interpretation and review of laboratory results Abnormal [facility] Lymphocytes/100 WBC (Bld) 26 % 25 - 45 % [facility] Lymphocytes/100 WBC (Bld) 2.58 % [facility] MCH (RBC) [Entitic mass] 28.5 pg 25.2 - 33.5 pg [facility] MCHC (RBC) [Mass/Vol] 33.8 g/dL 28.4 - 34.8 g/dL [facility] MCV (RBC) [Entitic vol] 84.2 fL 82.6 - 102.9 fL [facility] Monocytes/100 WBC (Bld) 6 % 2 - 8 % [facility] Monocytes/100 WBC (Bld) 0.64 % [facility] Neutrophils/100 WBC (Bld) 68 % High 34 - 64 % [facility] Nucleated RBC/100 WBC (Bld) [Ratio] 0.0 % 0.0 per 100 WBC [facility] Platelet mean volume (Bld) [Entitic vol] 9.4 fL 8.1 - 13.5 fL [facility] Platelets (Bld) [#/Vol] 364 10*3/uL [facility] RBC (Bld) [#/Vol] 4.81 10*6/uL 3.95 - 5.11 m/uL [facility] Segmented neutrophils/100 WBC (Bld) 6.71 % [facility] WBC other (Bld) [#/Vol] 10.0 [facility] CBC with Diffon 02-06-2023 Abs. Basophil <0.03 Normal 0.00-0.20 [facility] Comment on above: Performed By: #### Kp Santamaria CP, CDP #### [facility] [address] [place] [address] Body And Frame Man: Debbie Molina MD Abs. Eosinophil <0.03 Normal 0.00-0.44 [facility] Comment on above: Performed By: #### Kp Santamaria CP, CDP #### [facility] [address] [place] [address] Body And Frame Man: Debbie Molina MD Abs.Imm.Granulocyte <0.03 Normal 0.00-0.30 [facility] Comment on above: Performed By: #### Kp Santamaria CP, CDP #### [address] [place], [place] [id number] Body And Frame Man: Debbie Molina MD Abs.Neutrophil (Seg) 6.71 k/uL Normal 1.50-8.10 [facility] Comment on above: Performed By: #### Kp Santamaria CP, CDP #### [address] [place], [facility]83 Body And Frame Man: Debbie Molina MD Basophils/100 WBC (Bld) 0 % Normal 0-2 [facility] Comment on above: Performed By: #### Kp Santamaria CP, CDP #### [address] [place], [facility]83 Body And Frame Man: Debbie Molina MD Eosinophils/100 WBC (Bld) 0 % Low 1-4 [facility] Comment on above: Performed By: #### pK Sanatmaria CP, CDP #### [address] [place], [facility]83 Body And Frame Man: Debbie Molina MD Erythrocyte distribution width (RBC) [Ratio] 12.8 % Normal 11.8-14.4 [facility] Comment on above: Performed By: #### Kp Santamaria CP, CDP #### [address] [place], [facility]83 Body And Frame Man: Debbie Molina MD Hematocrit (Bld) [Volume fraction] 40.5 % Normal 36.3-47.1 [facility] Comment on above: Performed By: #### Kp Santamaria CP, CDP #### [address] [place], [place] [id number] Body And Frame Man: Debbie Molina MD Hemoglobin (Bld) [Mass/Vol] 13.7 g/dL Normal 11.9-15.1 [facility] Comment on above: Performed By: #### Kp Santamaria CP, CDP #### [address] [place], [place] [id number] Body And Frame Man: Debbie Molina MD Immature granulocytes/100 WBC (Bld) 0 % Normal 0 [facility] Comment on above: Performed By: #### Kp Santamaria CP, CDP #### [address] [place], [place] [id number] Body And Frame Man: eDbbie Molina MD Lymphocytes (Bld) [#/Vol] 2.58 10*3/uL Normal 1.10-3.70 [facility] Comment on above: Performed By: #### Kp Santamaria CP, CDP #### [address] [place], [place] [id number] Body And Frame Man: Debbie Molina MD Lymphocytes/100 WBC (Bld) 26 % Normal 25-45 [facility] Comment on above: Performed By: #### Kp Santamaria CP, CDP #### [address] [place], [place] [id number] Body And Frame Man: Debbie Molina MD MCH (RBC) [Entitic mass] 28.5 pg Normal 25.2-33.5 [facility] Comment on above: Performed By: #### Kp Santamaria CP, CDP #### [address] [place], [place] [id number] Body And Frame Man: Debbie Molina MD MCHC (RBC) [Mass/Vol] 33.8 g/dL Normal 28.4-34.8 [facility] Comment on above: Performed By: #### Kp Santamaria CP, CDP #### [address] [place], [place] [id number] Body And Frame Man: Debbie Molina MD MCV (RBC) [Entitic vol] 84.2 fL Normal 82.6-102.9 [facility] Comment on above: Performed By: #### Kp Santamaria CP, CDP #### [facility] [address] [place] [address] Body And Frame Man: Debbie Molina MD Monocytes (Bld) [#/Vol] 0.64 10*3/uL Normal 0.10-1.40 [facility] Comment on above: Performed By: #### Kp Santamaria CP, CDP #### [facility] [address] [place], [facility]83 Body And Frame Man: Debbie Molina MD Monocytes/100 WBC (Bld) 6 % Normal 2-8 [facility] Comment on above: Performed By: #### Kp Santamaria CP, CDP #### [address] [place], [facility]83 Body And Frame Man: Debbie Molina MD Neutrophil (Seg) 68 % High 34-64 [facility] Comment on above: Performed By: #### Kp Santamaria CP, CDP #### [address] [place], [place] [id number] Body And Frame Man: Debbie Molina MD NRBC Automated 0.0 per 100 WBC Normal 0.0 [facility] Comment on above: Performed By: #### Kp Santamaria CP, CDP #### [address] [place], [place] [address] Body And Frame Man: Debbie Molina MD Platelet mean volume (Bld) [Entitic vol] 9.4 fL Normal 8.1-13.5 [facility] Comment on above: Performed By: #### Kp Santamaria CP, CDP #### [address] [place], [place] [id number] Body And Frame Man: Debbie Moilna MD Platelets (Bld) [#/Vol] 364 10*3/uL Normal 138-453 [facility] Comment on above: Performed By: #### Kp Santamaria CP, CDP #### [facility] [address] [place] [address] Body And Frame Man: Debbie Molina MD RBC (Bld) [#/Vol] 4.81 10*6/uL Normal 3.95-5.11 [facility] Comment on above: Performed By: #### Kp Santamaria CP, CDP #### [facility] [address] [place] [id number] Body And Frame Man: Debbie Molina MD WBC (Bld) [#/Vol] 10.0 10*3/uL Normal 4.5-13.5 [facility] Comment on above: Performed By: #### Kp Santamaria CP, CDP #### [facility] [address] [place] [address] Body And Frame Man: Debbie Molina MD [facility] 02-06-2023 Albumin [Mass/Vol] 4.9 g/dL 3.5 - 5.2 g/dL [facility] Albumin/Globulin [Mass ratio] 1.8 {ratio} 1.0 - 2.5 [facility] ALP [Catalytic activity/Vol] 74 U/L 35 - 104 U/L [facility] ALT [Catalytic activity/Vol] 6 U/L 5 - 33 U/L [facility] Anion gap [Moles/Vol] 14 mmol/L 9 - 17 mmol/L [facility] AST [Catalytic activity/Vol] 16 U/L NINF - 32 U/L [facility] Bilirubin [Mass/Vol] 0.4 mg/dL 0.3 - 1 .2 mg/dL [facility] Calcium [Mass/Vol] 9.6 mg/dL 8.6 - 10. 4 mg/dL [facility] Chloride [Moles/Vol] 102 mmol/L 98 - 10 7 mmol/L [facility] CO2 [Moles/Vol] 25 mmol/L 20 - 31 mmol/L [facility] Creatinine [Mass/Vol] 0.7 mg/dL 0.5 - 0.9 mg/dL [facility] GFR/1.73 sq M.predicted MDRD (S/P/Bld) [Vol rate/Area] - PINF [facility] Comment on above: These results are not [...] 111 mg/dL High 70 - 99 mg/dL [facility] Interpretation and review of laboratory results Abnormal [facility] [place] Potassium [Moles/Vol] 4.0 mmol/L 3.7 - 5.3 mmol/L [facility] Protein [Mass/Vol] 7.7 g/dL 6.4 - 8.3 g/dL [facility] Sodium [Moles/Vol] 141 mmol/L 135 - 144 mmol/L [facility] Urea nitrogen [Mass/Vol] 8 mg/dL 6 - 20 mg/dL [facility] Urea nitrogen/Creatinine [Mass ratio] 11 mg/mg 9 - 20 [facility] HEAD WO CONTRASTon 2022 CT HEAD [...] Ferdinand Chavarria MD 02/06/23 Final result Normal [facility] CT Head WO Contraston 2022 1. No acute intracra nial abnormality. [facility] EXAMINATION: CT OF THE HEAD WITHOUT [...] clear. SOFT TISSUES/SKULL: The calvarium is intact. [facility] Ferdinand Chavarria MD - 02/06/2023 EXAMINATION: [...] intact. IMPRESSION: 1. No acute intracranial abnormality. [facility] Radiology Study observation (narrative) [facility] CT Head WO ContrastOrdered B y: Ferdinand Chavarria on 02-06-2023 [facility] Work Phone: Comp Metabolic Profon 2022 Albumin [Mass/Vol] 4.9 g/dL Normal 3.5-5.2 [facility] Comment on above: Performed By: #### Kp Santamaria CP, CDP #### [facility] [address] [place], [place] [id number] Body And Frame Man: Debbie Molina MD Albumin/Glob Ratio 1.8 Normal 1.0-2.5 [facility] Comment on above: Performed By: #### Kp Santamaria CP, CDP #### [facility] [address] [place], [place] [id number] Body And Frame Man: Debbie Molina MD Alkaline Phos 74 U/L Normal 35-104 [facility] Comment on above: Performed By: #### Kp Santamaria CP, CDP #### [address] [place], [place] [id number] Body And Frame Man: Debbie Molina MD ALT [Catalytic activity/Vol] 6 U/L Normal 5-33 [facility] Comment on above: Performed By: #### Kp Santamaria CP, CDP #### [address] [place], [place] [phone] Body And Frame Man: Debbie Molina MD Anion gap [Moles/Vol] 14 mmol/L Normal 9-17 [facility] Comment on above: Performed By: #### Kp Santamaria CP, CDP #### [address] [place] [address] Body And Frame Man: Dbebie Molina MD AST [Catalytic activity/Vol] 16 U/L Normal <32 [facility] Comment on above: Performed By: #### Kp Santamaria CP, CDP #### [address] [place], [place] [id number] Body And Frame Man: Debbie Molina MD Bilirubin [Mass/Vol] 0.4 mg/dL Normal 0.3-1.2 [facility] Comment on above: Performed By: #### Kp Santamaria CP, CDP #### [facility] [address] [place], [place] [phone] Body And Frame Man: Debbie Molina MD BUN/CRE Ratio 11 Normal 9-20 [facility] Comment on above: Performed By: #### Kp Santamaria CP, CDP #### [facility] [address] [place], [place] [id number] Body And Frame Man: Debbie Molina MD Calcium [Mass/Vol] 9.6 mg/dL Normal 8.6-10.4 [facility] Comment on above: Performed By: #### Kp Santamaria CP, CDP #### [facility] [address] [place], [place] [id number] Body And Frame Man: Debbie Molina MD Chloride [Moles/Vol] 102 mmol/L Normal 98-107 [facility] Comment on above: Performed By: #### Kp Santamaria CP, CDP #### [facility] [address] [place], [place] [phone] Body And Frame Man: Debbie Molina MD CO2 [Moles/Vol] 25 mmol/L Normal 20-31 [facility] Comment on above: Performed By: #### Kp Santamaria CP, CDP #### [address] [place], [place] [phone] Body And Frame Man: Debbie Molina MD Creatinine [Mass/Vol] 0.7 mg/dL Normal 0.5-0.9 [facility] Comment on above: Performed By: #### Kp Santamaria CP, CDP #### [facility] [address] [place], [place] [id number] Body And Frame Man: Debbie Molina MD GFR/1.73 sq M.predicted among non-blacks MDRD (S/P/Bld) [Vol rate/Area] mL/min/{1.73_m2} Normal >60 [facility] Comment on above: Result Comment: These results are not intended for use in patients <18 years of age. eGFR results are calculated without a race factor using the 2021 CKD-EPI equation. Careful clinical correlation is recommended, particularly when comparing to results calculated using previous equations. The CKD-EPI equation is less accurate in patients with extremes of muscle mass, extra-renal metabolism of creatine, excessive creatine ingestion, or following therapy that affects renal tubular secretion. Performed By: #### Kp Santamaria CP, CDP #### [facility] [address] [place] [address] [place] [address] Body And Frame Man: Debbie Molina MD Glucose [Mass/Vol] 111 mg/dL High 70-99 [facility] Comment on above: Performed By: #### Kp Santamaria CP, CDP #### [facility] [address] [place] [address] Body And Frame Man: Debbie Molina MD Potassium [Moles/Vol] 4.0 mmol/L Normal 3.7-5.3 [facility] Comment on above: Performed By: #### Kp Santamaria CP, CDP #### [facility] [address] [place] [address] [place] [address] Body And Frame Man: Debbie Molina MD Protein [Mass/Vol] 7.7 g/dL Normal 6.4-8.3 [facility] Comment on above: Performed By: #### Kp Santamaria CP, CDP #### [address] [place] [address] Body And Frame Man: Debbie Molina MD Sodium [Moles/Vol] 141 mmol/L Normal 135-144 [facility] Comment on above: Performed By: #### Kp Santamaria CP, CDP #### [facility] [address] [place] [address] [place] [address] Body And Frame Man: Debbie Molina MD Urea nitrogen [Mass/Vol] 8 mg/dL Normal 6-20 [facility] Comment on above: Performed By: #### Kp Santamaria CP, CDP #### [facility] [address] [place], [place] [id number] Body And Frame Man: Debbie Molina MD Lactic Acidon 02-06-2023 Lactate [Moles/Vol] 2.5 mmol/L High 0.5-2.2 [facility] Comment on above: Performed By: #### L ACTIC #### [facility] [address] [place], [place] [phone] Body And Frame Man: Debbie Molina MD Interpretation and review of laboratory results Abnormal [facility] Lactate (BldV) [Moles/Vol] 2.5 mmol/L High 0.5 - 2.2 mmol/L [facility] Magnesiumon 02-06-2023 Magnesium [Mass/Vol] 2.0 mg/dL Normal 1.6-2.6 [facility] Comment on above: Performed By: #### M G, CP, CDP #### [facility] [address] [place] [address] Body And Frame Man: Debbie Molina MD Magnesium [Mass/Vol] 2.0 mg/dL 1.6 - 2 .6 mg/dL [facility] No Panel Informationon 02-[address] [facility] [address] HEAD WO CONon 09-24-2022 CT HEAD [...] NAHUN SAMUELS Date: 2022-09-23 23:01 Normal [facility] URINE PROFILEon 3 Bilirubin Ql (U) Negative Normal NEGATIVE [facility] Comment on above: Performed By: #### C MP, HSTROPN #### [facility] [address] [place] [address] Dr. Jovanni Maya Clarity (U) CLEAR Normal CLEAR [facility] Comment on above: Performed By: #### C MP, HSTROPN #### [facility] [address] [address] [address] Jovanni Maya Color (U) YELLOW Normal YELLOW [facility] Comment on above: Performed By: #### C MP, HSTROPN #### [facility] [address] [place] [address] Dr. Jovanni ANTOINE A micrscopic examina tion will be performed if indicated. Normal [facility] Comment on above: Performed By: #### C MP, HSTROPN #### [facility] [address] [place] [address] Dr. Jovanni Maya Glucose Ql (U) Negative Normal NEGATIVE [facility] Comment on above: Performed By: #### C MP, HSTROPN #### [facility] [address] [place] [address] Dr. Jovanni Maya Hemoglobin Ql (U) Negative Normal NEGATIVE [facility] Comment on above: Performed By: #### C MP, HSTROPN #### [facility] [address] [place] [address] Dr. Jovanni Maya Ketones Ql (U) 40 mg/dl Abnormal NEGATIVE [facility] Comment on above: Performed By: #### C MP, HSTROPN #### [facility] [address] [address] [address] Jovanni Maya LEUKOCYTES Negative Normal NEGATIVE [facility] Comment on above: Performed By: #### C MP, HSTROPN #### [facility] [address] [place] [address] Dr. Jovanni Maya Nitrite Ql (U) Negative Normal NEGATIVE [facility] Comment on above: Performed By: #### C MP, HSTROPN #### [facility] [address] [address] [address] Jovanni Maya pH (U) 7.0 [pH] Normal 5-9 [facility] Comment on above: Performed By: #### C DANIEL, HSTROPN #### [facility] [address] [address] [address] Jovanni Maya SPEC GRAVITY 1.015 Normal 1.005-<=1. 025 [facility] Comment on above: Performed By: #### C DANIEL, HSTROPN #### [facility] [address] [address] [address] Jovanni Maya UA PROTEIN Negative Normal NEGATIVE/ TRACE [facility] Comment on above: Performed By: #### C DANIEL, HSTROPN #### [facility] [address] [address] [address] Jovanni Maya UR MICRO IND NOT INDICATED Normal [facility] Comment on above: Performed By: #### C DANIEL, HSTROPN #### [facility] [address] [address] [address] Jovanni Maya Urobilinogen Qn (U) 0.2 {Carlos A'U}/dL Normal 0.2 - 1. 0 [facility] Comment on above: Performed By: #### C DANIEL, HSTROPN #### [facility] [address] [address] [address] Jovanni Maya LACTATE/LACTIC ACIDon 2022 Lactate [Moles/Vol] 0.6 mmol/L Normal 0.4-2.0 [facility] Comment on above: Performed By: #### P REG, ACETON #### [facility] [address] [address] [address] Jovanni Maya POINT OF CARE GLUCOSEon 08-27 Glucose [Mass/Vol] 123 mg/dL Critically high 74-106 [facility] Comment on above: Performed By: #### P OCGLUC #### [facility] [address] [address] [address] Jovanni Maya XR CHEST 1 Von [...] DEBBIE BRITT Date: 2022-09-23 22:21 Normal [facility] ACETONE SERUMon 09-23-2022 ACETONE Negative Normal NEGATIVE [facility] Comment on above: Performed By: #### P REG, ACETON #### [facility] [address] [address] [address] Jovanni Maya CBC AUTO DIFFon 09-23-2022 BASO # 0.0 103/ul Normal 0.0-0.1 [facility] Comment on above: Performed By: #### C BC #### [facility] [address] [address] [address] Jovanni Maya Basophils/100 WBC (Bld) 0.3 % Normal 0.2-2.0 [facility] Comment on above: Performed By: #### C BC #### [facility] [address] [address] [address] Jovanni Maya EO # 0.0 103/ul Normal 0.0-0.7 [facility] Comment on above: Performed By: #### C BC #### [facility] [address] [address] [address] Jovanni Maya Eosinophils/100 WBC (Bld) 0.1 % Critically low 0.9-7.0 [facility] Comment on above: Performed By: #### C BC #### [facility] [address] [address] [address] Jovanni Maya Erythrocyte distribution width (RBC) [Ratio] 12.4 % Normal 11.0-15.0 [facility] Comment on above: Performed By: #### C BC #### [facility] [address] [place] [address] Dr. Jovanni Maya Hematocrit (Bld) [Volume fraction] 39.6 % Normal 36.0-48.0 [facility] Comment on above: Performed By: #### C BC #### [facility] [address] [address] [address] Jovanni Maya Hemoglobin (Bld) [Mass/Vol] 13.7 g/dL Normal 12.0-16.0 [facility] Comment on above: Performed By: #### C BC #### [facility] [address] [address] [address] Jovanni Maya IG # 0.02 10e3/ul Normal 0.00-0.03 [facility] Comment on above: Performed By: #### C BC #### [facility] [address] [place] [address] Dr. Jovanni Maya IG % 0.2 % Normal 0.0-0.5 [facility] Comment on above: Performed By: #### C BC #### [facility] [address] [place] [address] Dr. Jovanni Maya LYMPH # 2.2 103/ul Normal 1.2-3.8 [facility] Comment on above: Performed By: #### C BC #### [facility] [address] [place] [address] Dr. Jovanni Maya Lymphocytes/100 WBC (Bld) 24.8 % Normal 20.5-60.0 [facility] Comment on above: Performed By: #### C BC #### [facility] [address] [place] [address] Dr. Jovanni Maya MANUAL DIFF REQ NO Normal [facility] Comment on above: Performed By: #### C BC #### [facility] [address] [place] [address] Dr. Jovanni Maya MCH (RBC) [Entitic mass] 29.7 pg Normal 26.7-34.0 [facility] Comment on above: Performed By: #### C BC #### [facility] [address] [place] [address] Dr. Jovanni Maya MCHC (RBC) [Mass/Vol] 34.6 g/dL Normal 29.9-35.2 [facility] Comment on above: Performed By: #### C BC #### [facility] [address] [address] [address] Jovanni Maya MCV (RBC) [Entitic vol] 85.7 fL Normal 81.0-99.0 [facility] Comment on above: Performed By: #### C BC #### [facility] [address] [address] [address] Jovanni Maya MONO # 0.7 103/ul Normal 0.3-0.8 [facility] Comment on above: Performed By: #### C BC #### [facility] [address] [address] [address] Jovanni Maya Monocytes/100 WBC (Bld) 7.6 % Normal 1.7-12.0 [facility] Comment on above: Performed By: #### C BC #### [facility] [address] [place] [address] Dr. Jovanni Maya NEUT # 5.9 103/ul Normal 1.4-6.5 [facility] Comment on above: Performed By: #### C BC #### [facility] [address] [place] [address] Dr. Jovanni Maya Neutrophils/100 WBC (Bld) 67.0 % Normal 43.0-75.0 [facility] Comment on above: Performed By: #### C BC #### [facility] [address] [place] [address] Dr. Jovanni Maya Platelet mean volume (Bld) [Entitic vol] 9.3 fL Critically low 9.5-13.5 [facility] Comment on above: Performed By: #### C BC #### [facility] [address] [place] [address] Dr. Jovanni Maya PLT 259 103/ul Normal 150-450 [facility] Comment on above: Performed By: #### C BC #### [facility] [address] [place] [address] Dr. Jovanni Maya RBC 4.62 106/ul Normal 4.20-5.40 [facility] Comment on above: Performed By: #### C BC #### [facility] [address] [place] [address] Dr. Jovanni Maya WBC 8.8 103/ul Normal 4.0-11.0 [facility] Comment on above: Performed By: #### C BC #### [facility] [address] [place] [address] Dr. Jovanni Maya D-DIMERon 09-23-2022 D-DIMER 0.19 mg/L FEU Normal <=0.59 [facility] Comment on above: Performed By: #### C DANIEL, HSTROPN #### [facility] [address] [place] [address] Dr. Jovanni Maya D-DIMER COMMENTS SEE BELOW Normal [facility] Comment on above: Result Comment: Incr eases [...] and generalized hospitalization. Performed By: #### C DANIEL HSTROPN #### [facility] [address] [place] [address] Dr. Jovanni Maya GROUP A STREP CULTUREon 08-27 S. pyogenes Ag Ql (Unsp spec) Culture Observations: NEGATIVE FOR GROUP A STREPTOCOCCUS. Normal [facility] Comment on above: Performed By: #### C DANIEL, HSTROPN #### [facility] [address] [place] [address] Dr. Jovanni Maya INFLUENZA A AND B AGon 09-23 INFLUENZA A AG Negative Normal NEGATIVE SEE COMMENT [facility] Comment on above: Performed By: #### I NFLUAB #### [facility] [address] [place] [address] Dr. Jovanni Maya INFLUENZA B AG Negative Normal NEGATIVE SEE COMMENT [facility] Comment on above: Performed By: #### I NFLUAB #### [facility] [address] [place] [address] Dr. Jovanni Maya LACTATE/LACTIC ACIDon 2022 Lactate [Moles/Vol] 3.2 mmol/L Critically high 0.4-2.0 [facility] Comment on above: Performed By: #### L ACT #### [facility] [address] [address] [address] Jovanni Maya PREG HCG QUALon 09-23-2022 , QUAL Negative Normal NEGATIVE [facility] Comment on above: Performed By: #### P REG, ACETON #### [facility] [address] [address] [address] Jovanni Maya PROF 14(COMP METB)on 023 Albumin [Mass/Vol] 4.6 g/dL Normal 3.4-5.0 [facility] Comment on above: Performed By: #### C MP, HSTROPN #### [facility] [address] [address] [address] Jovanni Maya Albumin/Globulin [Mass ratio] 1.5 {ratio} Normal [facility] Comment on above: Performed By: #### C MP, HSTROPN #### [facility] [address] [address] [address] Jovanni Maya ALP [Catalytic activity/Vol] 59 U/L Normal 46-116 [facility] Comment on above: Performed By: #### C MP, HSTROPN #### [facility] [address] [address] [address] Jovanni Maya ALT [Catalytic activity/Vol] 11 U/L Critically low 14-59 [facility] Comment on above: Performed By: #### C MP, HSTROPN #### [facility] [address] [address] [address] Jovanni Maya Anion gap [Moles/Vol] 15.3 mmol/L Normal [facility] Comment on above: Performed By: #### C MP, HSTROPN #### [facility] [address] [address] [address] Jovanni Maya AST [Catalytic activity/Vol] 10 U/L Critically low 15-37 [facility] Comment on above: Performed By: #### C MP, HSTROPN #### [facility] [address] [address] [address] Jovanni Maya Bilirubin [Mass/Vol] 0.8 mg/dL Normal 0.2-1.0 [facility] Comment on above: Performed By: #### C MP, HSTROPN #### [facility] [address] [place] [address] Dr. Jovnani Maya Calcium [Mass/Vol] 9.2 mg/dL Normal 8.5-10.1 [facility] Comment on above: Performed By: #### C MP, HSTROPN #### [facility] [address] [place] [address] Dr. Jovanni Maya Chloride [Moles/Vol] 105 mmol/L Normal 98-107 [facility] Comment on above: Performed By: #### C MP, HSTROPN #### [facility] [address] [place] [address] Dr. Jovanni Maya CO2 [Moles/Vol] 24.4 mmol/L Normal 21.0-32.0 [facility] Comment on above: Performed By: #### C MP, HSTROPN #### [facility] [address] [place] [address] Dr. Jovanni Maya Creatinine [Mass/Vol] 0.99 mg/dL Normal 0.55-1.02 [facility] Comment on above: Performed By: #### C MP, HSTROPN #### [facility] [address] [place] [address] Dr. Jovanni Maya EGFR-AF LUXEMBOURGER >60 Normal >=60 [facility] Comment on above: Performed By: #### C MP, HSTROPN #### [facility] [address] [place] [address] Dr. Jovanni Maya EGFR-NON AF LUXEMBOURGER >60 Normal >=60 [facility] Comment on above: Performed By: #### C MP, HSTROPN #### [facility] [address] [place] [address] Dr. Jovanni Maya Globulin (S) [Mass/Vol] 3.1 g/dL Normal [facility] Comment on above: Performed By: #### C DANIEL, HSTROPN #### [facility] [address] [address] [address] Jovanni Maya Glucose [Mass/Vol] 113 mg/dL Critically high 74-106 [facility] Comment on above: Performed By: #### C DANIEL, HSTROPN #### [facility] [address] [address] [address] Jovanni Maya Potassium [Moles/Vol] 3.7 mmol/L Normal 3.5-5.1 [facility] Comment on above: Performed By: #### C DANIEL, HSTROPN #### [facility] [address] [place] [address] Dr. Jovanni Maya Protein [Mass/Vol] 7.7 g/dL Normal 6.4-8.2 [facility] Comment on above: Performed By: #### C DANIEL, HSTROPN #### [facility] [address] [place] [address] Dr. Jovanni Maya Sodium [Moles/Vol] 141 mmol/L Normal 136-145 [facility] Comment on above: Performed By: #### C DANIEL, HSTROPN #### [facility] [address] [place] [address] Dr. Jovanni Maya Urea nitrogen [Mass/Vol] 10.0 mg/dL Normal 7.0-18.0 [facility] Comment on above: Performed By: #### C DANIEL, HSTROPN #### [facility] [address] [place] [address] Dr. Jovanni Maya Urea nitrogen/Creatinine [Mass ratio] 10.1 mg/mg Normal [facility] Comment on above: Performed By: #### C DANIEL, HSTROPN #### [facility] [address] [place] [address] Dr. Jovanni Maya STREPT SCREENon 09-23-2022 STREP SCREEN A Negative Normal NEGATIVE [facility] Comment on above: Performed By: #### C DANIEL, HSTROPN #### [facility] [address], [place] [address] Dr. Jovanni Maya TROPONIN, HIGH SENSITIVITYon 09-23-2022 HSTROP <4.0 Normal 4.0-51.3 [facility] Comment on above: Result Comment: CUT- OFF POINTS HAVE BEEN ESTABLISHED BASED ON THE FOURTH UNIVERSAL DEFINITIONS OF MYOCARDIAL INFARCTION. THE UPPER REFERENCE LIMIT (URL) OF TROPONIN, DEFINED THE 99TH PERCENTILE OF cTnI DISTRIBUTION IN A REFERENCE POPULATION, HAS BEEN CONFIRMED THE DECISION THRESHOLD FOR AR DIAGNOSIS. Performed By: #### C MP, HSTROPN #### [facility] [address] [place], [place] [address] Dr. Jovanni Maya Alanine aminotransferase [En zymatic activity/volume] in Serum or PlasmaOrdered By: Federica Bullimore on 09-13-2022 ALT [Catalytic activity/Vol] 5 U/L 7-52 [facility] [place] Albumin [Mass/volume] in Ser um or Plasma by Bromocresol green (BCG) dye binding methoOrdered By: Federica Bullimore on 09-13-2022 Albumin BCG dye [Mass/Vol] 4.3 g/dL 3.5-5.7 [facility] [place] Alkaline phosphatase [Enzyma tic activity/volume] in Serum or PlasmaOrdered By: Federica Bullimore on 09-13-2022 ALP [Catalytic activity/Vol] 45 U/L 34-104 [facility] Aspartate aminotransferase [ Enzymatic activity/volume] in Serum or PlasmaOrdered By: Federica Bullimore on 09-13-2022 AST [Catalytic activity/Vol] 12 U/L 13-39 [facility] [place] Basophils Auto (Bld) [#/Vol] Ordered By: Federica Bullimore on 09-13-2022 Basophils (Bld) [#/Vol] 0.0 10*3/uL 0.0-0.2 [facility] Basophils/100 WBC Auto (Bld) Ordered By: Federica Bullimore on 09-13-2022 Basophils/100 WBC (Bld) 0.7 % . [facility] [place] Bilirubin.total [Mass/volume ] in Serum or PlasmaOrdered By: Federica Bullimore on 09-13-2022 Bilirubin [Mass/Vol] 0.5 mg/dL 0.3-1.0 [facility] Calcium [Mass/volume] in Ser um or PlasmaOrdered By: Federicagiovanni Wolfe on 09-13-2022 Calcium [Mass/Vol] 9.1 mg/dL 8.6-10.3 [facility] Carbon dioxide, total [Moles /volume] in Serum or PlasmaOrdered By: Federicagiovanni Alexanderore on 09-13-2022 CO2 [Moles/Vol] 30.0 mmol/L 21.0-31.[address] [facility] Chloride [Moles/volume] in S alexis or PlasmaOrdered By: Federica Bullimore on 09-13-2022 Chloride [Moles/Vol] 105 mmol/L 98-107 [facility] Creatinine [Mass/volume] in Serum or PlasmaOrdered By: Federicagiovanni Wolfe on 09-13-2022 Creatinine [Mass/Vol] 0.91 mg/dL 0.60-1.20 [facility] Eosinophils Auto (Bld) [#/Vo l]Ordered By: [facility] on 09-13-2022 Eosinophils (Bld) [#/Vol] 0.0 10*3/uL 0.0-0.45 [facility] [place] Eosinophils/100 WBC Auto (Bl d)Ordered By: [facility] on 09-13-2022 Eosinophils/100 WBC (Bld) 0.5 % . [facility] Erythrocyte distribution wid th Auto (RBC) [Ratio]Ordered By: [facility] on 09-13-2022 Erythrocyte distribution width (RBC) [Ratio] 13.3 % 11.9-15.3 [facility] Globulin Calc (S) [Mass/Vol] Ordered By: [facility] on 09-13-2022 Globulin (S) [Mass/Vol] 2.7 g/dL [facility] Glucose [Mass/volume] in Ser um or PlasmaOrdered By: Federica Bullimore on 09-13-2022 Glucose [Mass/Vol] 89 mg/dL 74-109 [facility] Comment on above: ADA recommended refe rence rangeRandom Glucose Reference Range is dependent on time and content of last meal. Glucose of more than 200 mg/dL in a nonstressed, ambulatory subject supports the diagnosis of Diabetes Mellitus. Hematocrit Auto (Bld) [Volum e fraction]Ordered By: Federica Wolfe on 09-13-2022 Hematocrit (Bld) [Volume fraction] 37.5 % 34.0-46.4 [facility] Hemoglobin [Mass/volume] in BloodOrdered By: Federica Wolfe on 09-13-2022 Hemoglobin (Bld) [Mass/Vol] 12.7 g/dL 11.8-15.4 [facility] - Chemistry and C hemistry - challengeOrdered By: Federica Wolfe on 09-13-2022 GFR/1.73 sq M.predicted MDRD (S/P/Bld) [Vol rate/Area] mL/min/{1.73_m2} [facility] Leukocytes [#/volume] correc manjula for nucleated erythrocytes in Blood by Automated counOrdered By: Federica Wolfe on 09-13-2022 WBC corrected for nucl RBC Auto (Bld) [#/Vol] 5.9 10*3/uL 3.8-11.6 [facility] Lymphocytes Auto (Bld) [#/Vo l]Ordered By: Federica Wolfe on 09-13-2022 Lymphocytes (Bld) [#/Vol] 2.1 10*3/uL 1.00-4.8 [facility] Lymphocytes/100 WBC Auto (Bl d)Ordered By: Federica Wolfe on 09-13-2022 Lymphocytes/100 WBC (Bld) 36.0 % . [facility] MCH Auto (RBC) [Entitic mass ]Ordered By: Federica Wolfe on 09-13-2022 MCH (RBC) [Entitic mass] 29.7 pg 24.7-34.3 [facility] MCHC Auto (RBC) [Mass/Vol]Or dered By: Federica Wolfe on 09-13-2022 MCHC (RBC) [Mass/Vol] 33.8 g/dL 32.0-35.0 [facility] MCV Auto (RBC) [Entitic vol] Ordered By: Federica Wolfe on 09-13-2022 MCV (RBC) [Entitic vol] 88.0 fL 80-100 [facility] Monocyte distribution width [Entitic volume] in Blood by AutomatedOrdered By: Federica Giordanoimore on 09-13-2022 Monocyte distribution width Auto (Bld) [Entitic vol] 17.84 % 0.00-20.00 [facility] Monocytes Auto (Bld) [#/Vol] Ordered By: Federica Bullimore on 09-13-2022 Monocytes (Bld) [#/Vol] 0.4 10*3/uL 0.0-0.8 [facility] Monocytes/100 WBC Auto (Bld) Ordered By: Federica Bullimore on 09-13-2022 Monocytes/100 WBC (Bld) 7.0 % . [facility] Neutrophils Auto (Bld) [#/Vo l]Ordered By: Federica Bullimore on 09-13-2022 Neutrophils (Bld) [#/Vol] 3.3 10*3/uL 1.8-7.7 [facility] Neutrophils/100 WBC Auto (Bl d)Ordered By: Federica Bullimore on 09-13-2022 Neutrophils/100 WBC (Bld) 55.8 % . [facility] No Panel InformationOrdered By: Federica Giordanoimore on 09-13-2022 Pharmacy Creatinine Clearance (Chem 72.40 [facility] Nucleated erythrocytes [Pres ence] in Blood by Automated countOrdered By: Federica Giordanoimore on 09-13-2022 Nucleated RBC Auto Ql (Bld) 0.1 /100{WBC} 0-0.5 [facility] Platelet mean volume Auto (B ld) [Entitic vol]Ordered By: Federica Bullimore on 09-13-2022 Platelet mean volume (Bld) [Entitic vol] 8.0 fL 6.3-10.7 [facility] Platelets Auto (Bld) [#/Vol] Ordered By: Federica Bullimore on 09-13-2022 Platelets (Bld) [#/Vol] 245 10*3/uL 150-450 [facility] Potassium [Moles/volume] in Serum or PlasmaOrdered By: Federica Giordanoimore on 09-13-2022 Potassium [Moles/Vol] 3.7 mmol/L 3.5-5.1 [facility] Protein [Mass/volume] in Ser um or PlasmaOrdered By: Federica Bullimore on 09-13-2022 Protein [Mass/Vol] 7.0 g/dL 6.4-8.9 [facility] RBC Auto (Bld) [#/Vol]Ordere d By: Federica Bullimore on 09-13-2022 RBC (Bld) [#/Vol] 4.27 10*6/uL 3.60-5.00 [facility] Serum or plasma albumin/glob ulin mass ratioOrdered By: Federica Bullimore on 09-13-2022 Albumin/Globulin [Mass ratio] 1.6 {ratio} [facility] Serum or plasma anion gap de terminationOrdered By: Federica Bullimore on 09-13-2022 Anion gap [Moles/Vol] 8.7 mmol/L 6.0-15.0 [facility] Sodium [Moles/volume] in Ser um or PlasmaOrdered By: Federica Bullimore on 09-13-2022 Sodium [Moles/Vol] 140 mmol/L 136-145 [facility] Urea nitrogen [Mass/volume] in Serum or PlasmaOrdered By: Federica Bullimore on 09-13-2022 Urea nitrogen [Mass/Vol] 8 mg/dL 7-25 [facility] WBC Auto (Bld) [#/Vol]Ordere d By: Federica Bullimore on 09-13-2022 WBC (Bld) [#/Vol] 5.9 10*3/uL 3.8-11.6 [facility] Automated erythrocytes count in urine sediment (number/area)Ordered By: Shanelle Bowen on 08-30-2022 RBC Auto (Urine sed) [#/Area] 5-9 [HPF] 0-4 [facility] Automated leukocytes count i n urine sediment (number/area)Ordered By: Shanelle Bowen on 08-30-2022 WBC Auto (Urine sed) [#/Area] 5-9 [HPF] 0-4 [facility] Basophils Auto (Bld) [#/Vol] Ordered By: Shanelle Bowen on 03-06-2023 Basophils (Bld) [#/Vol] 0.0 10*3/uL 0.0-0.2 [facility] [place] Basophils/100 WBC Auto (Bld) Ordered By: Shanelle Bowen on 08-30-2022 Basophils/100 WBC (Bld) 0.5 % . [facility] Bilirubin Test strip Ql (U)O rdered By: Shanelle Bowen on 08-30-2022 Bilirubin Ql (U) Negative Negative [facility] Calcium [Mass/volume] in Ser um or PlasmaOrdered By: Shanelle Bowen on 08-30-2022 Calcium [Mass/Vol] 9.4 mg/dL 8.2-10.2 [facility] Carbon dioxide, total [Moles /volume] in Serum or PlasmaOrdered By: Shanelle Bowen on 08-30-2022 CO2 [Moles/Vol] 21.7 mmol/L 22.0-30.[address] [facility] Chloride [Moles/volume] in S alexis or PlasmaOrdered By: Shanelle Bowen on 08-30-2022 Chloride [Moles/Vol] 102 mmol/L 95-114 [facility] Color Auto (U)Ordered By: Brian Bowen on 08-30-2022 Color (U) Yellow Yellow [facility] Creatinine and Glomerular fi ltration rate.predicted panel (S/P/Bld)Ordered By: Shanelle Bowen on 08-30-2022 Creatinine [Mass/Vol] 0.99 mg/dL 0.44-1.03 [facility] Eosinophils Auto (Bld) [#/Vo l]Ordered By: Shanelle Bowen on 08-30-2022 Eosinophils (Bld) [#/Vol] 0.1 10*3/uL 0.0-0.45 [facility] Eosinophils/100 WBC Auto (Bl d)Ordered By: Shanelle Bowen on 08-30-2022 Eosinophils/100 WBC (Bld) 1.2 % . [facility] Erythrocyte distribution wid th Auto (RBC) [Ratio]Ordered By: Shanelle Bowen on 08-30-2022 Erythrocyte distribution width (RBC) [Ratio] 13.9 % 11.9-15.3 [facility] Estimated glomerular filtrat ion rate (GFR) non- AmericanOrdered By: Shanelle Bowen on 08-30-2022 GFR/1.73 sq M.predicted among non-blacks MDRD (S/P/Bld) [Vol rate/Area] > 60 mL/Min [facility] [place] Glucose [Mass/volume] in Ser um or PlasmaOrdered By: Shanelle Bowen on 08-30-2022 Glucose [Mass/Vol] 101 mg/dL 70-100 [facility] Comment on above: ADA recommended refe rence rangeRandom Glucose Reference Range is dependent on time and content of last meal. Glucose of more than 200 mg/dL in a nonstressed, ambulatory subject supports the diagnosis of Diabetes Mellitus. Hematocrit Auto (Bld) [Volum e fraction]Ordered By: Shanelle Bowen on 08-30-2022 Hematocrit (Bld) [Volume fraction] 43.8 % 34.0-46.4 [facility] Hemoglobin [Mass/volume] in BloodOrdered By: Shanelle Bowen on 08-30-2022 Hemoglobin (Bld) [Mass/Vol] 14.6 g/dL 11.8-15.4 [facility] Ketones Auto test strip (U) [Mass/Vol]Ordered By: Shanelle Bowen on 08-30-2022 Ketones (U) [Mass/Vol] Trace Negative [facility] - Chemistry and C hemistry - challengeOrdered By: Shanelle Bowen on 08-30-2022 Magnesium [Mass/Vol] 2.2 mg/dL 1.6-2.6 [facility] Laboratory - UrinalysisOrder ed By: Shanelle Bowen on 08-30-2022 Hyaline casts LM Ql (Urine sed) 0-8 [LPF] 0-8 [facility] Leukocytes [#/volume] correc manjula for nucleated erythrocytes in Blood by Automated counOrdered By: Shanelle Bowen on 08-30-2022 WBC corrected for nucl RBC Auto (Bld) [#/Vol] 10.5 10*3/uL 3.8-11.6 [facility] Lymphocytes Auto (Bld) [#/Vo l]Ordered By: Shanelle Bowen on 08-30-2022 Lymphocytes (Bld) [#/Vol] 3.9 10*3/uL 1.00-4.8 [facility] Lymphocytes/100 WBC Auto (Bl d)Ordered By: Shanelle Bowen on 08-30-2022 Lymphocytes/100 WBC (Bld) 36.9 % . [facility] MCH Auto (RBC) [Entitic mass ]Ordered By: Shanelle Bowen on 08-30-2022 MCH (RBC) [Entitic mass] 29.5 pg 24.7-34.3 [facility] MCHC Auto (RBC) [Mass/Vol]Or dered By: Shanelle Bowen on 08-30-2022 MCHC (RBC) [Mass/Vol] 33.3 g/dL 32.0-35.0 Fir [facility] MCV Auto (RBC) [Entitic vol] Ordered By: Shanelle Bowen on 08-30-2022 MCV (RBC) [Entitic vol] 88.7 fL 80-100 [facility] Monocyte distribution width [Entitic volume] in Blood by AutomatedOrdered By: Shanelle Bowen on 08-30-2022 Monocyte distribution width Auto (Bld) [Entitic vol] 19.23 % 0.00-20.00 [facility] Monocytes Auto (Bld) [#/Vol] Ordered By: Shanelle Bowen on 08-30-2022 Monocytes (Bld) [#/Vol] 0.6 10*3/uL 0.0-0.8 [facility] Monocytes/100 WBC Auto (Bld) Ordered By: Shanelle Bowen on 08-30-2022 Monocytes/100 WBC (Bld) 5.6 % . [facility] Neutrophils Auto (Bld) [#/Vo l]Ordered By: Shanelle Bowen on 08-30-2022 Neutrophils (Bld) [#/Vol] 5.9 10*3/uL 1.8-7.7 [facility] Neutrophils/100 WBC Auto (Bl d)Ordered By: Shanelle Bowen on 08-30-2022 Neutrophils/100 WBC (Bld) 55.8 % . [facility] Nitrite Test strip Ql (U)Ord ered By: Shanelle Bowen on 08-30-2022 Nitrite Ql (U) Negative Negative [facility] No Panel InformationOrdered By: Shanelle Bowen on 08-30-2022 Lamotrigine (Lamictal) Level 4.2 ug/mL 2.0-20.0 [facility] Comment on above: Detection Limit = 1. 0Performed at: [facility] - [facility] [address] [id number] Director: Sina Hills MD, Phone: [phone] Levetiracetam (Keppra) Level 41.6 ug/mL 10.0-40.0 [facility] Comment on above: Performed at: [facility] - [facility] [address] [id number] Director: Sina Hills MD, Phone: [phone] Estimated GFR () > 60 mL/Min [facility] Comment on above: GFR estimated refere nce range: According to KDOQI guidelines, <60 ml/min/1.73m2 is sufficient to diagnose a patient with chronic kidney disease. Pharmacy Creatinine Clearance (Chem 67.83 [facility] Nucleated erythrocytes [Pres ence] in Blood by Automated countOrdered By: Shanelle Bowen on 08-30-2022 Nucleated RBC Auto Ql (Bld) 0.1 /100{WBC} 0-0.5 [facility] Platelet mean volume Auto (B ld) [Entitic vol]Ordered By: Shanelle Bowen on 08-30-2022 Platelet mean volume (Bld) [Entitic vol] 8.4 fL 6.3-10.7 [facility] Platelets Auto (Bld) [#/Vol] Ordered By: Shanelle Bowen on 08-30-2022 Platelets (Bld) [#/Vol] 288 10*3/uL 150-450 [facility] Potassium [Moles/volume] in Serum or PlasmaOrdered By: Shanelle Bowen on 08-30-2022 Potassium [Moles/Vol] 3.4 mmol/L 3.5-5.1 [facility] Protein Auto test strip (U) [Mass/Vol]Ordered By: Shanelle Bowen on 08-30-2022 Protein (U) [Mass/Vol] Trace mg/dL Negative [facility] RBC Auto (Bld) [#/Vol]Ordere d By: Shanelle Bowen on 08-30-2022 RBC (Bld) [#/Vol] 4.94 10*6/uL 3.60-5.00 [facility] Serum or plasma anion gap de terminationOrdered By: Shanelle Bowen on 08-30-2022 Anion gap [Moles/Vol] 17.7 mmol/L 6.0-15.0 Fi [facility] Sodium [Moles/volume] in Ser um or PlasmaOrdered By: Shanelle Bowen on 08-30-2022 Sodium [Moles/Vol] 138 mmol/L 136-146 [facility] Specific gravity Auto test s trip (U) [Rel density]Ordered By: Shanelle Bowen on 08-30-2022 Specific gravity (U) [Rel density] 1.016 1.001-1.03 0 [facility] Squamous epithelial cells de tection in urine sediment by light microscopyOrdered By: Shanelle Bowen on 08-30-2022 Epithelial cells.squamous LM Ql (Urine sed) 1-2 [HPF] 0-2 [facility] Urea nitrogen [Mass/volume] in Serum or PlasmaOrdered By: Shanelle Bowen on 08-30-2022 Urea nitrogen [Mass/Vol] 5 mg/dL 9-23 [facility] Urine bacteria detection by automated methodOrdered By: Shanelle Bowen on 08-30-2022 Bacteria Auto Ql (U) None seen None Seen [facility] Urine clarity by refractomet ry automatedOrdered By: Shanelle Bowen on 08-30-2022 Clarity Refractometry automated (U) Clear Clear [facility] Urine culture routineOrdered By: Shanelle Bowen on 08-30-2022 Bacteria identified Cx Nom (U) 2 Days [facility] Urine glucose measurement by automated test strip (mass/volume)Ordered By: Shanelle Bowen on 08-30-2022 Glucose Auto test strip (U) [Mass/Vol] Normal mg/dL Normal [facility] Urine hemoglobin detection b y automated test stripOrdered By: Shanelle Bowen on 08-30-2022 Hemoglobin Auto test strip Ql (U) 3+ Negative [facility] Urine leukocyte esterase det ection by automated test stripOrdered By: Shanelle Bowen on 08-30-2022 Leukocyte esterase Auto test strip Ql (U) 1+ Negative [facility] Urobilinogen Auto test strip (U) [Mass/Vol]Ordered By: Shanelle Bowen on 08-30-2022 Urobilinogen (U) [Mass/Vol] Normal mg/dL Normal [facility] WBC Auto (Bld) [#/Vol]Ordere d By: Shanelle Bowen on 08-30-2022 WBC (Bld) [#/Vol] 10.5 10*3/uL 3.8-11.6 [facility] pH Auto test strip (U)Ordere d By: Shanelle Bowen on 08-30-2022 pH (U) 6.5 [pH] 5.0-9.0 [facility] Albumin [Mass/volume] in Ser um or PlasmaOrdered By: Roberto Whittaker on 08-18-2022 Albumin [Mass/Vol] 4.6 g/dL 3.2-5.5 [facility] Alkaline phosphatase [Enzyma tic activity/volume] in Serum or PlasmaOrdered By: Roberto Whittaker on 08-18-2022 ALP [Catalytic activity/Vol] 50 U/L 32-92 [facility] Aspartate aminotransferase [ Enzymatic activity/volume] in Serum or PlasmaOrdered By: Roberto Whittaker on 08-18-2022 AST [Catalytic activity/Vol] 19 U/L 10-42 [facility] Basophils Auto (Bld) [#/Vol] Ordered By: Roberto Whittaker on 08-18-2022 Basophils (Bld) [#/Vol] 0.0 10*3/uL 0.0-0.2 [facility] Basophils/100 WBC Auto (Bld) Ordered By: Roberto Whittaker on 08-18-2022 Basophils/100 WBC (Bld) 0.5 % . [facility] Calcium [Mass/volume] in Ser um or PlasmaOrdered By: Roberto Whittaker on 08-18-2022 Calcium [Mass/Vol] 9.4 mg/dL 8.2-10.2 [facility] Carbon dioxide, total [Moles /volume] in Serum or PlasmaOrdered By: Roberto Whittaker on 08-18-2022 CO2 [Moles/Vol] 26.7 mmol/L 22.0-30.[address] [facility] Creatinine and Glomerular fi ltration rate.predicted panel (S/P/Bld)Ordered By: Roberto Whittaker on 08-18-2022 Creatinine [Mass/Vol] 0.87 mg/dL 0.44-1.03 [facility] Eosinophils Auto (Bld) [#/Vo l]Ordered By: Roberto Whittaker on 08-18-2022 Eosinophils (Bld) [#/Vol] 0.0 10*3/uL 0.0-0.45 [facility] Eosinophils/100 WBC Auto (Bl d)Ordered By: Roberto Whittaker on 08-18-2022 Eosinophils/100 WBC (Bld) 0.5 % . [facility] Erythrocyte distribution wid th Auto (RBC) [Ratio]Ordered By: Roberto Whittaker on 08-18-2022 Erythrocyte distribution width (RBC) [Ratio] 13.7 % 11.9-15.3 [facility] Estimated glomerular filtrat ion rate (GFR) non- AmericanOrdered By: Roberto Whittaker on 08-18-2022 GFR/1.73 sq M.predicted among non-blacks MDRD (S/P/Bld) [Vol rate/Area] > 60 mL/Min [facility] Globulin Calc (S) [Mass/Vol] Ordered By: Roberto Whittaker on 08-18-2022 Globulin (S) [Mass/Vol] 2.7 g/dL [facility] Hematocrit Auto (Bld) [Volum e fraction]Ordered By: Roberto Whittaker on 08-18-2022 Hematocrit (Bld) [Volume fraction] 39.6 % 34.0-46.4 [facility] Hemoglobin [Mass/volume] in BloodOrdered By: Roberto Whittaker on 08-18-2022 Hemoglobin (Bld) [Mass/Vol] 13.3 g/dL 11.8-15.4 [facility] Laboratory - Chemistry and C hemistry - challengeOrdered By: Roberto Whittaker on 08-18-2022 Magnesium [Mass/Vol] 2.1 mg/dL 1.6-2.6 [facility] Leukocytes [#/volume] correc manjula for nucleated erythrocytes in Blood by Automated counOrdered By: Roberto Whittaker on 08-18-2022 WBC corrected for nucl RBC Auto (Bld) [#/Vol] 6.9 10*3/uL 3.8-11.6 [facility] Lymphocytes Auto (Bld) [#/Vo l]Ordered By: Roberto Whittaker on 08-18-2022 Lymphocytes (Bld) [#/Vol] 2.2 10*3/uL 1.00-4.8 [facility] Lymphocytes/100 WBC Auto (Bl d)Ordered By: Roberto Whittaker on 08-18-2022 Lymphocytes/100 WBC (Bld) 31.2 % . [facility] MCH Auto (RBC) [Entitic mass ]Ordered By: Roberto Whittaker on 08-18-2022 MCH (RBC) [Entitic mass] 29.3 pg 24.7-34.3 [facility] MCHC Auto (RBC) [Mass/Vol]Or dered By: Roberto Whittaker on 08-18-2022 MCHC (RBC) [Mass/Vol] 33.5 g/dL 32.0-35.0 [facility] MCV Auto (RBC) [Entitic vol] Ordered By: Roberto Whittaker on 08-18-2022 MCV (RBC) [Entitic vol] 87.5 fL 80-100 [facility] Monocyte distribution width [Entitic volume] in Blood by AutomatedOrdered By: Roberto Whittaker on 08-18-2022 Monocyte distribution width Auto (Bld) [Entitic vol] 17.66 % 0.00-20.00 [facility] Monocytes Auto (Bld) [#/Vol] Ordered By: Roberto Whittaker on 08-18-2022 Monocytes (Bld) [#/Vol] 0.5 10*3/uL 0.0-0.8 [facility] Monocytes/100 WBC Auto (Bld) Ordered By: Roberto Whittaker on 08-18-2022 Monocytes/100 WBC (Bld) 7.4 % . [facility] Neutrophils Auto (Bld) [#/Vo l]Ordered By: Roberto Whittaker on 08-18-2022 Neutrophils (Bld) [#/Vol] 4.2 10*3/uL 1.8-7.7 [facility] Neutrophils/100 WBC Auto (Bl d)Ordered By: Roberto Whittaker on 08-18-2022 Neutrophils/100 WBC (Bld) 60.4 % . [facility] No Panel InformationOrdered By: Roberto Whittaker on 08-18-2022 Levetiracetam (Keppra) Level 98.1 ug/mL 10.0-40.0 [facility] Comment on above: Performed at: - L [address] [id number] Director: Sina Hills MD, Phone: [phone] Estimated GFR () > 60 mL/Min [facility] Comment on above: GFR estimated refere nce range: According to KDOQI guidelines, <60 ml/min/1.73m2 is sufficient to diagnose a patient with chronic kidney disease. Pharmacy Creatinine Clearance (Chem 75.25 [facility] Nucleated erythrocytes [Pres ence] in Blood by Automated countOrdered By: Roberto Whittaker on 08-18-2022 Nucleated RBC Auto Ql (Bld) 0.1 /100{WBC} 0-0.5 [facility] Platelet mean volume Auto (B ld) [Entitic vol]Ordered By: Roberto Whittaker on 08-18-2022 Platelet mean volume (Bld) [Entitic vol] 7.8 fL 6.3-10.7 [facility] Platelets Auto (Bld) [#/Vol] Ordered By: Roberto Whittaker on 08-18-2022 Platelets (Bld) [#/Vol] 237 10*3/uL 150-450 [facility] Prolactin [Mass/volume] in S alexis or PlasmaOrdered By: Roberto Whittaker on 08-18-2022 Prolactin [Mass/Vol] 22.52 ng/mL 3.34-26.72 [facility] Protein [Mass/volume] in Ser um or PlasmaOrdered By: Roberto Whittaker on 08-18-2022 Protein [Mass/Vol] 7.3 g/dL 6.1-7.9 [facility] RBC Auto (Bld) [#/Vol]Ordere d By: Roberto Whittaker on 08-18-2022 RBC (Bld) [#/Vol] 4.53 10*6/uL 3.60-5.00 [facility] Serum or plasma alanine white otransferase measurement without P-5'-P (enzymatic activiOrdered By: Roberto Whittaker on 08-18-2022 ALT No additional P-5'-P [Catalytic activity/Vol] 10 U/L 10-60 [facility] Serum or plasma albumin/glob ulin mass ratioOrdered By: Roberto Whittaker on 08-18-2022 Albumin/Globulin [Mass ratio] 1.7 {ratio} [facility] Serum or plasma anion gap de terminationOrdered By: Roberto Whittaker on 08-18-2022 Anion gap [Moles/Vol] 11.9 mmol/L 6.0-15.0 [facility] Serum or plasma chloride melonie surement (moles/volume)Ordered By: Roberto Whittaker on 08-18-2022 Chloride [Moles/Vol] 103 mmol/L 95-114 [facility] Serum or plasma glucose randi urement (mass/volume)Ordered By: Roberto Whittaker on 08-18-2022 Glucose [Mass/Vol] 83 mg/dL 70-100 [facility] Comment on above: ADA recommended refe rence rangeRandom Glucose Reference Range is dependent on time and content of last meal. Glucose of more than 200 mg/dL in a nonstressed, ambulatory subject supports the diagnosis of Diabetes Mellitus. Serum or plasma potassium me asurement (moles/volume)Ordered By: Roberto Whittaker on 08-18-2022 Potassium [Moles/Vol] 3.6 mmol/L 3.5-5.1 [facility] Serum or plasma sodium measu rement (moles/volume)Ordered By: Roberto Whittaker on 08-18-2022 Sodium [Moles/Vol] 138 mmol/L 136-146 [facility] Serum or plasma total biliru bin measurement (mass/volume)Ordered By: Roberto Whittaker on 08-18-2022 Bilirubin [Mass/Vol] 0.8 mg/dL 0.3-1.2 [facility] Urea nitrogen [Mass/volume] in Serum or PlasmaOrdered By: Roberto Whittaker on 08-18-2022 Urea nitrogen [Mass/Vol] 10 mg/dL 03-19 [facility] WBC Auto (Bld) [#/Vol]Ordere d By: Roberto Whittaker on 08-18-2022 WBC (Bld) [#/Vol] 6.9 10*3/uL 3.8-11.6 [facility] Amphetamine Screen Ql (U)Ord ered By: Attila Nelson on 07-27-2022 Amphetamines Ql (U) Negative Negative [facility] Automated erythrocytes count in urine sediment (number/area)Ordered By: Attila Nelson on 07-27-2022 RBC Auto (Urine sed) [#/Area] 50-100 [HPF] 0-4 [facility] Automated leukocytes count i n urine sediment (number/area)Ordered By: Attila Nelson on 07-27-2022 WBC Auto (Urine sed) [#/Area] 3-4 [HPF] 0-4 [facility] Barbiturates [Presence] in U rineOrdered By: Attila Nelson on 07-27-2022 Barbiturates Ql (U) Negative Negative [facility] Basophils Auto (Bld) [#/Vol] Ordered By: Attila Nelson on 07-27-2022 Basophils (Bld) [#/Vol] 0.0 10*3/uL 0.0-0.2 [facility] Basophils/100 WBC Auto (Bld) Ordered By: Attila Nelson on 07-27-2022 Basophils/100 WBC (Bld) 0.4 % . [facility] Benzodiazepines [Presence] i n UrineOrdered By: Attila Nelson on 07-27-2022 Benzodiazepines Ql (U) Negative Negative [facility] Bilirubin Test strip Ql (U)O rdered By: Attila Nelson on 07-27-2022 Bilirubin Ql (U) Negative Negative [facility] Body fluid albumin measureme nt (mass/volume)Ordered By: Attila Nelson on 07-27-2022 Albumin (Body fld) [Mass/Vol] 4.5 g/dL 3.2-5.5 [facility] Cannabinoids [Presence] in U rine by Screen methodOrdered By: Attila Nelson on 07-27-2022 Cannabinoids Screen Ql (U) Positive Negative [facility] Comment on above: These are unconfirme d results and should not be used for legal purposes. Drug Cut-Off Concentration: AMPH 1000 ng/mL DOMINIQUE 200 ng/mL BRICE 200 ng/mL COCM 300 ng/mL OP 300 ng/mL PCP 25 ng/mL THC 20 ng/mL Color Auto (U)Ordered By: Cezar Nelson on 07-27-2022 Color (U) Yellow Yellow [facility] Creatinine and Glomerular fi ltration rate.predicted panel (S/P/Bld)Ordered By: Attila Nelson on 07-27-2022 Creatinine [Mass/Vol] 0.78 mg/dL 0.44-1.03 Fir [facility] Eosinophils Auto (Bld) [#/Vo l]Ordered By: Attila Nelson on 07-27-2022 Eosinophils (Bld) [#/Vol] 0.0 10*3/uL 0.0-0.45 [facility] Eosinophils/100 WBC Auto (Bl d)Ordered By: Attila Nelson on 07-27-2022 Eosinophils/100 WBC (Bld) 0.5 % . [facility] Erythrocyte distribution wid th Auto (RBC) [Ratio]Ordered By: Attila Nelson on 07-27-2022 Erythrocyte distribution width (RBC) [Ratio] 13.7 % 11.9-15.3 [facility] Estimated glomerular filtrat ion rate (GFR) non- AmericanOrdered By: Attila Nelson on 07-27-2022 GFR/1.73 sq M.predicted among non-blacks MDRD (S/P/Bld) [Vol rate/Area] > 60 mL/Min [facility] Globulin Calc (S) [Mass/Vol] Ordered By: Attila Nelson on 07-27-2022 Globulin (S) [Mass/Vol] 3.1 g/dL [facility] HCG ( test) IA.rapi d Ql (U)Ordered By: Attila Nelson on 07-27-2022 HCG ( test) Ql (U) Negative [facility] Hematocrit Auto (Bld) [Volum e fraction]Ordered By: Attila Nelson on 07-27-2022 Hematocrit (Bld) [Volume fraction] 40.5 % 34.0-46.4 [facility] Hemoglobin [Mass/volume] in BloodOrdered By: Attila Nelson on 07-27-2022 Hemoglobin (Bld) [Mass/Vol] 13.7 g/dL 11.8-15.4 [facility] Ketones Auto test strip (U) [Mass/Vol]Ordered By: Attila Nelson on 07-27-2022 Ketones (U) [Mass/Vol] Negative [facility] Ordered By: Attila Nelson on 07-27-2022 Opiates Ql (U) Negative Negative [facility] Laboratory - UrinalysisOrder ed By: Attila Nelson on 07-27-2022 Hyaline casts LM Ql (Urine sed) 0-8 [LPF] 0-8 [facility] Leukocytes [#/volume] correc manjula for nucleated erythrocytes in Blood by Automated counOrdered By: Attila Nelson on 07-27-2022 WBC corrected for nucl RBC Auto (Bld) [#/Vol] 6.8 10*3/uL 3.8-11.6 [facility] Lymphocytes Auto (Bld) [#/Vo l]Ordered By: Attila Nelson on 07-27-2022 Lymphocytes (Bld) [#/Vol] 2.9 10*3/uL 1.00-4.8 [facility] Lymphocytes/100 WBC Auto (Bl d)Ordered By: Attila Nelson on 07-27-2022 Lymphocytes/100 WBC (Bld) 42.2 % . [facility] MCH Auto (RBC) [Entitic mass ]Ordered By: Attila Nelson on 07-27-2022 MCH (RBC) [Entitic mass] 29.6 pg 24.7-34.3 [facility] MCHC Auto (RBC) [Mass/Vol]Or dered By: Attila Nelson on 07-27-2022 MCHC (RBC) [Mass/Vol] 33.8 g/dL 32.0-35.0 [facility] MCV Auto (RBC) [Entitic vol] Ordered By: Attila Nelson on 07-27-2022 MCV (RBC) [Entitic vol] 87.6 fL 80-100 [facility] Monocyte distribution width [Entitic volume] in Blood by AutomatedOrdered By: Attila Nelson on 07-27-2022 Monocyte distribution width Auto (Bld) [Entitic vol] 17.82 % 0.00-20.00 [facility] Monocytes Auto (Bld) [#/Vol] Ordered By: Attila Nelson on 07-27-2022 Monocytes (Bld) [#/Vol] 0.4 10*3/uL 0.0-0.8 [facility] Monocytes/100 WBC Auto (Bld) Ordered By: Attila Nelson on 07-27-2022 Monocytes/100 WBC (Bld) 5.7 % . [facility] Neutrophils Auto (Bld) [#/Vo l]Ordered By: Attila Nelson on 07-27-2022 Neutrophils (Bld) [#/Vol] 3.4 10*3/uL 1.8-7.7 [facility] Neutrophils/100 WBC Auto (Bl d)Ordered By: Attila Nelson on 07-27-2022 Neutrophils/100 WBC (Bld) 51.2 % . [facility] Nitrite Test strip Ql (U)Ord ered By: Attila Nelson on 07-27-2022 Nitrite Ql (U) Negative Negative [facility] No Panel InformationOrdered By: Attila Nelson on 07-27-2022 Estimated GFR () > 60 mL/Min [facility] Comment on above: GFR estimated refere nce range: According to KDOQI guidelines, <60 ml/min/1.73m2 is sufficient to diagnose a patient with chronic kidney disease. Pharmacy Creatinine Clearance (Chem 85.01 [facility] Nucleated erythrocytes [Pres ence] in Blood by Automated countOrdered By: Attila Nelson on 07-27-2022 Nucleated RBC Auto Ql (Bld) 0.2 /100{WBC} 0-0.5 [facility] Phencyclidine Screen Ql (U)O rdered By: Attila Nelson on 07-27-2022 Phencyclidine Ql (U) Negative Negative [facility] Platelet mean volume Auto (B ld) [Entitic vol]Ordered By: Attila Nelson on 07-27-2022 Platelet mean volume (Bld) [Entitic vol] 8.3 fL 6.3-10.7 [facility] Platelets Auto (Bld) [#/Vol] Ordered By: Attila Nelson on 07-27-2022 Platelets (Bld) [#/Vol] 278 10*3/uL 150-450 [facility] Prolactin [Mass/volume] in S alexis or PlasmaOrdered By: Attila Nelson on 07-27-2022 Prolactin [Mass/Vol] 20.59 ng/mL 3.34-26.72 [facility] Protein Auto test strip (U) [Mass/Vol]Ordered By: Attila Nelson on 07-27-2022 Protein (U) [Mass/Vol] Trace mg/dL Negative F [facility] Protein [Mass/volume] in Ser um or PlasmaOrdered By: Attila Nelson on 07-27-2022 Protein [Mass/Vol] 7.6 g/dL 6.1-7.9 [facility] RBC Auto (Bld) [#/Vol]Ordere d By: Attila Nelson on 07-27-2022 RBC (Bld) [#/Vol] 4.62 10*6/uL 3.60-5.00 [facility] Serum or plasma alanine white otransferase measurement without P-5'-P (enzymatic activiOrdered By: Attila Nelson on 07-27-2022 ALT No additional P-5'-P [Catalytic activity/Vol] 9 U/L 10-60 [facility] Serum or plasma albumin/glob ulin mass ratioOrdered By: Attila Nelson on 07-27-2022 Albumin/Globulin [Mass ratio] 1.5 {ratio} [facility] Serum or plasma alkaline ignacio sphatase measurement (enzymatic activity/volume)Ordered By: Attila Nelson on 07-27-2022 ALP [Catalytic activity/Vol] 49 U/L 32-92 [facility] Serum or plasma anion gap de terminationOrdered By: Attila Nelson on 07-27-2022 Anion gap [Moles/Vol] 16.6 mmol/L 6.0-15.0 [facility] Serum or plasma aspartate am inotransferase measurement (enzymatic activity/volume)Ordered By: Attila Nelson on 07-27-2022 AST [Catalytic activity/Vol] 20 U/L 10- [facility] Serum or plasma calcium randi urement (mass/volume)Ordered By: Attila Nelson on 07-27-2022 Calcium [Mass/Vol] 9.6 mg/dL 8.2-10.2 [facility] Serum or plasma chloride melonie surement (moles/volume)Ordered By: Attila Nelson on 07-27-2022 Chloride [Moles/Vol] 103 mmol/L 95-114 [facility] Serum or plasma glucose randi urement (mass/volume)Ordered By: Attila Nelson on 07-27-2022 Glucose [Mass/Vol] 107 mg/dL 70-100 [facility] Comment on above: ADA recommended refe rence rangeRandom Glucose Reference Range is dependent on time and content of last meal. Glucose of more than 200 mg/dL in a nonstressed, ambulatory subject supports the diagnosis of Diabetes Mellitus. Serum or plasma potassium me asurement (moles/volume)Ordered By: Attila Nelson on 07-27-2022 Potassium [Moles/Vol] 3.8 mmol/L 3.5-5.1 [facility] Serum or plasma sodium measu rement (moles/volume)Ordered By: Attila Nelson on 07-27-2022 Sodium [Moles/Vol] 141 mmol/L 136-146 [facility] Serum or plasma total biliru bin measurement (mass/volume)Ordered By: Attila Nelson on 07-27-2022 Bilirubin [Mass/Vol] 0.5 mg/dL 0.3-1.2 [facility] Serum or plasma total carbon dioxide measurement (moles/volume)Ordered By: Attila Nelson on 07-27-2022 CO2 [Moles/Vol] 25.2 mmol/L 22.0-30.[address] [facility] Serum or plasma urea nitroge n measurement (mass/volume)Ordered By: Attila Nelson on 07-27-2022 Urea nitrogen [Mass/Vol] 5 mg/dL 03-19 [facility] Specific gravity Auto test s trip (U) [Rel density]Ordered By: Attila Nelson on 07-27-2022 Specific gravity (U) [Rel density] 1.022 1.001-1.03 0 [facility] Squamous epithelial cells de tection in urine sediment by light microscopyOrdered By: Attila Nelson on 07-27-2022 Epithelial cells.squamous LM Ql (Urine sed) 1-2 [HPF] 0-2 [facility] Urine bacteria detection by automated methodOrdered By: Attila Nelson on 07-27-2022 Bacteria Auto Ql (U) None seen None Seen [facility] Urine clarity by refractomet ry automatedOrdered By: Attila Nelson on 07-27-2022 Clarity Refractometry automated (U) Cloudy Clear [facility] Urine cocaine detectionOrder ed By: Attila Nelson on 07-27-2022 Cocaine Ql (U) Negative Negative [facility] Urine glucose measurement by automated test strip (mass/volume)Ordered By: Attila Nelson on 07-27-2022 Glucose Auto test strip (U) [Mass/Vol] Normal mg/dL Normal [facility] Urine hemoglobin detection b y automated test stripOrdered By: Attila Nelson on 07-27-2022 Hemoglobin Auto test strip Ql (U) 3+ Negative [facility] Urine leukocyte esterase det ection by automated test stripOrdered By: Attila Nelson on 07-27-2022 Leukocyte esterase Auto test strip Ql (U) 1+ Negative [facility] Urobilinogen Auto test strip (U) [Mass/Vol]Ordered By: Attila Nelson on 07-27-2022 Urobilinogen (U) [Mass/Vol] Normal mg/dL Normal [facility] WBC Auto (Bld) [#/Vol]Ordere d By: Attila Nelson on 07-27-2022 WBC (Bld) [#/Vol] 6.8 10*3/uL 3.8-11.6 [facility] pH Auto test strip (U)Ordere d By: Attila Nelson on 07-27-2022 pH (U) 7.0 [pH] 5.0-9.0 [facility] CBC AUTO DIFFon 06-12-2022 BASO # 0.0 103/ul Normal 0.0-0.1 [facility] Comment on above: Performed By: #### C MP, HSTROPN #### [facility] [address] [place] [address] Dr. Jovanni Maya Basophils/100 WBC (Bld) 0.2 % Normal 0.2-2.0 [facility] Comment on above: Performed By: #### C MP, HSTROPN #### [facility] [address] [place] [address] Dr. Jovanni Maya EO # 0.0 103/ul Normal 0.0-0.7 [facility] Comment on above: Performed By: #### C MP, HSTROPN #### [facility] [address] [place] [address] Dr. Jovanni Maya Eosinophils/100 WBC (Bld) 0.1 % Critically low 0.9-7.0 [facility] Comment on above: Performed By: #### C MP, HSTROPN #### [facility] [address] [place] [address] Dr. Jovanni Maya Erythrocyte distribution width (RBC) [Ratio] 12.7 % Normal 11.0-15.0 [facility] Comment on above: Performed By: #### C MP, HSTROPN #### [facility] [address] [place] [address] Dr. Jovanni Maya Hematocrit (Bld) [Volume fraction] 38.2 % Normal 36.0-48.0 [facility] Comment on above: Performed By: #### C MP, HSTROPN #### [facility] [address] [place] [address] Dr. Jovanni Maya Hemoglobin (Bld) [Mass/Vol] 13.4 g/dL Normal 12.0-16.0 [facility] Comment on above: Performed By: #### C MP, HSTROPN #### [facility] [address] [place] [address] Dr. Jovanni Maya IG # 0.04 10e3/ul Critically high 0.00-0.03 [facility] Comment on above: Performed By: #### C MP, HSTROPN #### [facility] [address] [place] [address] Dr. Jovanni Maya IG % 0.3 % Normal 0.0-0.5 [facility] Comment on above: Performed By: #### C DANIEL, HSTROPN #### [facility] [address] [place] [address] Dr. Jovanni Maya LYMPH # 1.6 103/ul Normal 1.2-3.8 [facility] Comment on above: Performed By: #### C DANIEL, HSTROPN #### [facility] [address] [place] [address] Dr. Jovanni Maya Lymphocytes/100 WBC (Bld) 12.9 % Critically low 20.5-60.0 [facility] Comment on above: Performed By: #### C DANIEL, HSTROPN #### [facility] [address] [place] [address] Dr. Jovanni Maya MANUAL DIFF REQ NO Normal [facility] Comment on above: Performed By: #### C DANIEL, HSTROPN #### [facility] [address] [place] [address] Dr. Jovanni Maya MCH (RBC) [Entitic mass] 29.6 pg Normal 26.7-34.0 [facility] Comment on above: Performed By: #### C DANIEL, HSTROPN #### [facility] [address] [place] [address] Dr. Jovanni Maya MCHC (RBC) [Mass/Vol] 35.1 g/dL Normal 29.9-35.2 [facility] Comment on above: Performed By: #### C DANIEL, HSTROPN #### [facility] [address] [place] [address] Dr. Jovanni Maya MCV (RBC) [Entitic vol] 84.5 fL Normal 81.0-99.0 [facility] Comment on above: Performed By: #### C DANIEL, HSTROPN #### [facility] [address] [place] [address] Dr. Jovanni Maya MONO # 0.6 103/ul Normal 0.3-0.8 [facility] Comment on above: Performed By: #### C DANIEL, HSTROPN #### [facility] [address] [address] [address] Jovanni Maya Monocytes/100 WBC (Bld) 4.9 % Normal 1.7-12.0 [facility] Comment on above: Performed By: #### C MP, HSTROPN #### [facility] [address] [address] [address] Jovanni Maya NEUT # 10.4 103/ul Critically high 1.4-6.5 [facility] Comment on above: Performed By: #### C MP, HSTROPN #### [facility] [address] [address] [address] Jovanni Maya Neutrophils/100 WBC (Bld) 81.6 % Critically high 43.0-75.0 [facility] Comment on above: Performed By: #### C DANIEL, HSTROPN #### [facility] [address] [address] [address] Jovanni Maya Platelet mean volume (Bld) [Entitic vol] 9.3 fL Critically low 9.5-13.5 [facility] Comment on above: Performed By: #### C DANIEL, HSTROPN #### [facility] [address] [address] [address] Jovanni Maya PLT 231 103/ul Normal 150-450 [facility] Comment on above: Performed By: #### C DANIEL, HSTROPN #### [facility] [address] [address] [address] Jovanni Maya RBC 4.52 106/ul Normal 4.20-5.40 [facility] Comment on above: Performed By: #### C MP, HSTROPN #### [facility] [address] [address] [address] Jovanni Maya WBC 12.7 103/ul Critically high 4.0-11.0 [facility] Comment on above: Performed By: #### C MP, HSTROPN #### [facility] [address] HEAD WO CONon 12-17-2022 CT HEAD WO CON NONCONTRAST CT SCAN [...] LO TUTTLE Date: 2022-06-12 21:00 Normal [facility] DRUG SCREEN RAPID (URINE)on 06-12-2022 AMP Negative Normal NEGATIVE [facility] Comment on above: Performed By: #### P REG, ACETON #### [facility] [address] [place] [address] Dr. Jovanni Maya BAR Negative Normal NEGATIVE [facility] Comment on above: Performed By: #### P REG, ACETON #### [facility] [address] [place] [address] Dr. Jovanni Maya BUP Negative Normal NEGATIVE [facility] Comment on above: Performed By: #### P REG, ACETON #### [facility] [address] [place] [address] Dr. Jovanni Maya BZO Negative Normal NEGATIVE [facility] Comment on above: Performed By: #### P REG, ACETON #### [facility] [address] [place] [address] Dr. Jovanni Maya DARIEN Negative Normal NEGATIVE [facility] Comment on above: Performed By: #### P REG, ACETON #### [facility] [address] [place] [address] Dr. Jovanni Maya CUT-OFFS SEE BELOW Normal [facility] Comment on above: Result Comment: AMP [...] Performed By: #### P REG, ACETON #### [facility] [address] [place] [address] Dr. Jovanni Maya DRUG CUT HEADER DRUG CLASS TEST SYST EM CUT-OFF CONCENTRATIONS ARE FOLLOWS: Normal [facility] Comment on above: Performed By: #### P REG, ACETON #### [facility] [address] [place] [address] Dr. Jovanni Maya mAMP Negative Normal NEGATIVE [facility] Comment on above: Performed By: #### P REG, ACETON #### [facility] [address] [place] [address] Dr. Jovanni Maya MTD Negative Normal NEGATIVE [facility] Comment on above: Performed By: #### P REG, ACETON #### [facility] [address] [place] [address] Dr. Jovanni Maya OPI Positive Abnormal NEGATIVE [facility] Comment on above: Performed By: #### P REG, ACETON #### [facility] [address] [place] [address] Dr. Jovanni Maya OXY Negative Normal NEGATIVE [facility] Comment on above: Performed By: #### P REG, ACETON #### [facility] [address] [place] [address] Dr. Jovanni Maya PCP Negative Normal NEGATIVE [facility] Comment on above: Performed By: #### P REG, ACETON #### [facility] [address] [place] [address] Dr. Jovanni Maya PPX Negative Normal NEGATIVE [facility] Comment on above: Performed By: #### P REG, ACETON #### [facility] [address] [place] [address] Dr. Jovanni Maya TCA Negative Normal NEGATIVE [facility] Comment on above: Performed By: #### P REG, ACETON #### [facility] [address] [place] [address] Dr. Jovanni Maya THC Positive Abnormal NEGATIVE [facility] Comment on above: Performed By: #### P REG, ACETON #### [facility] [address] [place] [address] Dr. Jovanni Maya ER URINE PROFILEon 2 Bilirubin Ql (U) Negative Normal NEGATIVE [facility] Comment on above: Performed By: #### C MP, HSTROPN #### [facility] [address] [place] [address] Dr. Jovanni Maya Clarity (U) CLEAR Normal CLEAR [facility] Comment on above: Performed By: #### C MP, HSTROPN #### [facility] [address] [place] [address] Dr. Jovanni Maya Color (U) LT. YELLOW Normal YELLOW [facility] Comment on above: Performed By: #### C MP, HSTROPN #### [facility] [address] [place] [address] Dr. Jovanni Maya ERUAHD A micrscopic examina tion will be performed if indicated. Normal [facility] Comment on above: Performed By: #### C MP, HSTROPN #### [facility] [address] [place] [address] Dr. Jovanni Maya Glucose Ql (U) Negative Normal NEGATIVE [facility] Comment on above: Performed By: #### C MP, HSTROPN #### [facility] [address] [place] [address] Dr. Jovanni Maya Hemoglobin Ql (U) Negative Normal NEGATIVE [facility] Comment on above: Performed By: #### C MP, HSTROPN #### [facility] [address] [place] [address] Dr. Jovanni Maya Ketones Ql (U) Negative Normal NEGATIVE [facility] Comment on above: Performed By: #### C MP, HSTROPN #### [facility] [address] [place] [address] Dr. Jovanni Maya LEUKOCYTES Negative Normal NEGATIVE [facility] Comment on above: Performed By: #### C MP, HSTROPN #### [facility] [address] [place] [address] Dr. Jovanni Maya Nitrite Ql (U) Negative Normal NEGATIVE [facility] Comment on above: Performed By: #### C DANIEL, HSTROPN #### [facility] [address] [place] [address] Dr. Jovanni Maya pH (U) 8.5 [pH] Normal 5-9 [facility] Comment on above: Performed By: #### C DANIEL, HSTROPN #### [facility] [address] [place] [address] Dr. Jovanni Maya SPEC GRAVITY 1.015 Normal 1.005-<=1. 025 [facility] Comment on above: Performed By: #### C DANIEL, HSTROPN #### [facility] [address] [place] [address] Dr. Jovanni Maya UA PROTEIN Negative Normal NEGATIVE/ TRACE [facility] Comment on above: Performed By: #### C DANIEL, HSTROPN #### [facility] [address] [place] [address] Dr. Jovanni Maya UR MICRO IND NOT INDICATED Normal [facility] Comment on above: Performed By: #### C DANIEL, HSTROPN #### [facility] [address] [place] [address] Dr. Jovanni Maya Urobilinogen Qn (U) 0.2 {Carlos A'U}/dL Normal 0.2 - 1. 0 [facility] Comment on above: Performed By: #### C DANIEL, HSTROPN #### [facility] [address] [place], [place] [id number] Dr. Jovanni Maya URon 06-12-2022 , QUAL Negative Normal NEGATIVE [facility] Comment on above: Performed By: #### C MP, HSTROPN #### [facility] [address] [place] [address] Dr. Jovanni Maya PROF 14(COMP METB)on 022 Albumin [Mass/Vol] 4.1 g/dL Normal 3.4-5.0 [facility] Comment on above: Performed By: #### C MP, HSTROPN #### [facility] [address] [place] [address] Dr. Jovanni Maya Albumin/Globulin [Mass ratio] 1.2 {ratio} Normal [facility] Comment on above: Performed By: #### C MP, HSTROPN #### [facility] [address] [place] [address] Dr. Jovanni Maya ALP [Catalytic activity/Vol] 53 U/L Normal 46-116 [facility] Comment on above: Performed By: #### C MP, HSTROPN #### [facility] [address] [place] [address] Dr. Jovanni Maya ALT [Catalytic activity/Vol] 11 U/L Critically low 14-59 [facility] Comment on above: Performed By: #### C MP, HSTROPN #### [facility] [address] [place] [address] Dr. Jovanni Maya Anion gap [Moles/Vol] 9.5 mmol/L Normal [facility] Comment on above: Performed By: #### C MP, HSTROPN #### [facility] [address] [place] [address] Dr. Jovanni Maya AST [Catalytic activity/Vol] 21 U/L Normal 15-37 [facility] Comment on above: Performed By: #### C MP, HSTROPN #### [facility] [address] [address] [address] Jovanni Maya Bilirubin [Mass/Vol] 0.3 mg/dL Normal 0.2-1.0 [facility] Comment on above: Performed By: #### C MP, HSTROPN #### [facility] [address] [address] [address] Jovanni Maya Calcium [Mass/Vol] 8.7 mg/dL Normal 8.5-10.1 [facility] Comment on above: Performed By: #### C MP, HSTROPN #### [facility] [address] [address] [address] Jovanni Maya Chloride [Moles/Vol] 104 mmol/L Normal 98-107 [facility] Comment on above: Performed By: #### C MP, HSTROPN #### [facility] [address] [address] [address] Jovanni Maya CO2 [Moles/Vol] 28.0 mmol/L Normal 21.0-32.0 [facility] Comment on above: Performed By: #### C MP, HSTROPN #### [facility] [address] [address] [address] Jovanni Maya Creatinine [Mass/Vol] 0.79 mg/dL Normal 0.55-1.02 [facility] Comment on above: Performed By: #### C MP, HSTROPN #### [facility] [address] [address] [address] Jovanni Maay EGFR-AF LUXEMBOURGER >60 Normal >=60 [facility] Comment on above: Performed By: #### C MP, HSTROPN #### [facility] [address] [address] [address] Jovanni Maya EGFR-NON AF LUXEMBOURGER >60 Normal >=60 [facility] Comment on above: Performed By: #### C MP, HSTROPN #### [facility] [address] [address] [address] Jovanni Maya Globulin (S) [Mass/Vol] 3.5 g/dL Normal [facility] Comment on above: Performed By: #### C MP, HSTROPN #### [facility] [address] [address] [address] Jovanni Maya Glucose [Mass/Vol] 102 mg/dL Normal 74-106 [facility] Comment on above: Performed By: #### C DANIEL HSTROPN #### [facility] [address] [place] [address] Dr. Jovanni Maya Potassium [Moles/Vol] 3.5 mmol/L Normal 3.5-5.1 [facility] Comment on above: Performed By: #### C DANIEL HSTROPN #### [facility] [address] [place] [address] Dr. Jovanni Maya Protein [Mass/Vol] 7.6 g/dL Normal 6.4-8.2 [facility] Comment on above: Performed By: #### C DANIEL HSTROPN #### [facility] [address] [place] [address] Dr. Jovanni Maya Sodium [Moles/Vol] 138 mmol/L Normal 136-145 [facility] Comment on above: Performed By: #### C DANIEL HSTROPN #### [facility] [address] [place] [address] Dr. Jovanni Maya Urea nitrogen [Mass/Vol] 9.0 mg/dL Normal 7.0-18.0 [facility] Comment on above: Performed By: #### C DANIEL HSTROPN #### [facility] [address] [place] [address] Dr. Jovanni Maya Urea nitrogen/Creatinine [Mass ratio] 11.4 mg/mg Normal [facility] Comment on above: Performed By: #### C DANIEL HSTROPN #### [facility] [address] [place] [address] Dr. Jovanni Maya CBC AUTO DIFFon 05-24-2022 BASO # 0.0 103/ul Normal 0.0-0.1 [facility] Comment on above: Performed By: #### C DANIEL HSTROPN #### [facility] [address] [place] [address] Dr. Jovanni Maya Basophils/100 WBC (Bld) 0.1 % Critically low 0.2-2.0 [facility] Comment on above: Performed By: #### C DANIEL HSTROPN #### [facility] [address] [place] [address] Dr. Jovanni Maya EO # 0.0 103/ul Normal 0.0-0.7 [facility] Comment on above: Performed By: #### C MP, HSTROPN #### [facility] [address] [place] [address] Dr. Jovanni Maya Eosinophils/100 WBC (Bld) 0.1 % Critically low 0.9-7.0 [facility] Comment on above: Performed By: #### C DANIEL, HSTROPN #### [facility] [address] [place] [address] Dr. Jovanni Maya Erythrocyte distribution width (RBC) [Ratio] 13.1 % Normal 11.0-15.0 [facility] Comment on above: Performed By: #### C DANIEL, HSTROPN #### [facility] [address] [place] [address] Dr. Jovanni Maya Hematocrit (Bld) [Volume fraction] 37.2 % Normal 36.0-48.0 [facility] Comment on above: Performed By: #### C DANIEL HSTROPN #### [facility] [address] [place] [address] Dr. Jovanni Maya Hemoglobin (Bld) [Mass/Vol] 13.0 g/dL Normal 12.0-16.0 [facility] Comment on above: Performed By: #### C DANIEL, HSTROPN #### [facility] [address] [place] [address] Dr. Jovanni Maya IG # 0.02 10e3/ul Normal 0.00-0.03 [facility] Comment on above: Performed By: #### C DANIEL, HSTROPN #### [facility] [address] [place] [address] Dr. Jovanni Maya IG % 0.3 % Normal 0.0-0.5 [facility] Comment on above: Performed By: #### C DANIEL, HSTROPN #### [facility] [address] [place] [address] Dr. Jovanni Maya LYMPH # 1.4 103/ul Normal 1.2-3.8 [facility] Comment on above: Performed By: #### C DANIEL, HSTROPN #### [facility] [address] [place] [address] Dr. Jovanni Maya Lymphocytes/100 WBC (Bld) 20.7 % Normal 20.5-60.0 [facility] Comment on above: Performed By: #### C DANIEL, HSTROPN #### [facility] [address] [place] [address] Dr. Jovanni Maya MANUAL DIFF REQ NO Normal [facility] Comment on above: Performed By: #### C DANIEL, HSTROPN #### [facility] [address] [place] [address] Dr. Jovanni Maya MCH (RBC) [Entitic mass] 29.5 pg Normal 26.7-34.0 [facility] Comment on above: Performed By: #### C DANIEL, HSTROPN #### [facility] [address] [place] [address] Dr. Jovanni Maya MCHC (RBC) [Mass/Vol] 34.9 g/dL Normal 29.9-35.2 [facility] Comment on above: Performed By: #### C DANIEL, HSTROPN #### [facility] [address] [place] [address] Dr. Jovanni Maya MCV (RBC) [Entitic vol] 84.4 fL Normal 81.0-99.0 [facility] Comment on above: Performed By: #### C DANIEL, HSTROPN #### [facility] [address] [place] [address] Dr. Jovanni Maya MONO # 0.5 103/ul Normal 0.3-0.8 [facility] Comment on above: Performed By: #### C DANIEL, HSTROPN #### [facility] [address] [place] [address] Dr. Jovanni Maya Monocytes/100 WBC (Bld) 7.8 % Normal 1.7-12.0 [facility] Comment on above: Performed By: #### C DANIEL, HSTROPN #### [facility] [address] [place] [address] Dr. Jovanni Maya NEUT # 4.8 103/ul Normal 1.4-6.5 [facility] Comment on above: Performed By: #### C MP, HSTROPN #### [facility] [address] [place] [address] Dr. Jovanni Maya Neutrophils/100 WBC (Bld) 71.0 % Normal 43.0-75.0 [facility] Comment on above: Performed By: #### C MP, HSTROPN #### [facility] [address] [place] [address] Dr. Jovanni Maya Platelet mean volume (Bld) [Entitic vol] 9.5 fL Normal 9.5-13.5 [facility] Comment on above: Performed By: #### C MP, HSTROPN #### [facility] [address] [place] [address] Dr. Jovanni Maya PLT 228 103/ul Normal 150-450 [facility] Comment on above: Performed By: #### C MP, HSTROPN #### [facility] [address] [place] [address] Dr. Jovanni Maya RBC 4.41 106/ul Normal 4.20-5.40 [facility] Comment on above: Performed By: #### C MP, HSTROPN #### [facility] [address] [place] [address] Dr. Jovanni Maya WBC 6.8 103/ul Normal 4.0-11.0 [facility] Comment on above: Performed By: #### C MP, HSTROPN #### [facility] [address] [place] [address] Dr. Jovanni Maya PROF 14(COMP METB)on 022 Albumin [Mass/Vol] 4.0 g/dL Normal 3.4-5.0 [facility] Comment on above: Performed By: #### C MP, HSTROPN #### [facility] [address] [place] [address] Dr. Jovanni Maya Albumin/Globulin [Mass ratio] 9.3 {ratio} Normal [facility] Comment on above: Performed By: #### C DANIEL, HSTROPN #### [facility] [address] [address] [address] Jovanni Maya ALP [Catalytic activity/Vol] 56 U/L Normal 46-116 [facility] Comment on above: Performed By: #### C DANIEL, HSTROPN #### [facility] [address] [address] [address] Jovanni Maya ALT [Catalytic activity/Vol] 8 U/L Critically low 14-59 [facility] Comment on above: Performed By: #### C DANIEL, HSTROPN #### [facility] [address] [place] [address] Dr. Jovanni Maya Anion gap [Moles/Vol] 9.3 mmol/L Normal [facility] Comment on above: Performed By: #### C DANIEL, HSTROPN #### [facility] [address] [address] [address] Jovanni Maya AST [Catalytic activity/Vol] 12 U/L Critically low 15-37 [facility] Comment on above: Performed By: #### C DANIEL, HSTROPN #### [facility] [address] [place] [address] Dr. Jovanni Maya Bilirubin [Mass/Vol] 0.3 mg/dL Normal 0.2-1.0 [facility] Comment on above: Performed By: #### C DANIEL, HSTROPN #### [facility] [address] [place] [address] Dr. Jovanni Maya Calcium [Mass/Vol] 8.6 mg/dL Normal 8.5-10.1 [facility] Comment on above: Performed By: #### C DANIEL, HSTROPN #### [facility] [facility] [address] [place] [address] Dr. Jovanni Maya Chloride [Moles/Vol] 104 mmol/L Normal 98-107 [facility] Comment on above: Performed By: #### C DANIEL, HSTROPN #### [facility] [address] [address] [address] Jovanni Maya CO2 [Moles/Vol] 28.1 mmol/L Normal 21.0-32.0 [facility] Comment on above: Performed By: #### C MP, HSTROPN #### [facility] [address] [address] [address] Jovanni Maya Creatinine [Mass/Vol] 0.71 mg/dL Normal 0.55-1.02 [facility] Comment on above: Performed By: #### C MP, HSTROPN #### [facility] [address] [address] [address] Jovanni Maya EGFR-AF LUXEMBOURGER >60 Normal >=60 [facility] Comment on above: Performed By: #### C MP, HSTROPN #### [facility] [address] [address] [address] Jovanni Maya EGFR-NON AF LUXEMBOURGER >60 Normal >=60 [facility] Comment on above: Performed By: #### C MP, HSTROPN #### [facility] [address] [address] [address] Jovanni Maya Globulin (S) [Mass/Vol] 3.4 g/dL Normal [facility] Comment on above: Performed By: #### C MP, HSTROPN #### [facility] [address] [address] [address] Jovanni Maya Glucose [Mass/Vol] 109 mg/dL Critically high 74-106 [facility] Comment on above: Performed By: #### C MP, HSTROPN #### [facility] [address] [address] [address] Jovanni Maya Potassium [Moles/Vol] 3.4 mmol/L Critically low 3.5-5.1 [facility] Comment on above: Performed By: #### C MP, HSTROPN #### [facility] [address] [address] [address] Jovanni Maya Protein [Mass/Vol] 7.4 g/dL Normal 6.4-8.2 [facility] Comment on above: Performed By: #### C MP, HSTROPN #### [facility] [address] [address] [address] Jovanni Maya Sodium [Moles/Vol] 138 mmol/L Normal 136-145 [facility] Comment on above: Performed By: #### C MP, HSTROPN #### [facility] [address] [address] [address] Jovanni Maya Urea nitrogen [Mass/Vol] 12.0 mg/dL Normal 7.0-18.0 [facility] Comment on above: Performed By: #### C MP, HSTROPN #### [facility] [address] [address] [address] Jovanni Maya Urea nitrogen/Creatinine [Mass ratio] 16.9 mg/mg Normal [facility] Comment on above: Performed By: #### C MP, HSTROPN #### [facility] [address] [address] [address] Jovanni Maya Basophils Auto (Bld) [#/Vol] Ordered By: Aman Cortes on 05-18-2022 Basophils (Bld) [#/Vol] 0.0 10*3/uL 0.0-0.2 [facility] Basophils/100 WBC Auto (Bld) Ordered By: Aman Cortes on 05-18-2022 Basophils/100 WBC (Bld) 0.3 % . [facility] Creatinine and Glomerular fi ltration rate.predicted panel (S/P/Bld)Ordered By: Aman Cortes on 05-18-2022 Creatinine [Mass/Vol] 0.74 mg/dL 0.44-1.03 [facility] Eosinophils Auto (Bld) [#/Vo l]Ordered By: Aman Cortes on 05-18-2022 Eosinophils (Bld) [#/Vol] 0.1 10*3/uL 0.0-0.45 [facility] Eosinophils/100 WBC Auto (Bl d)Ordered By: Aman Cortes on 05-18-2022 Eosinophils/100 WBC (Bld) 0.9 % . [facility] Erythrocyte distribution wid th Auto (RBC) [Ratio]Ordered By: Aman Cortes on 05-18-2022 Erythrocyte distribution width (RBC) [Ratio] 14.5 % 11.9-15.3 [facility] Estimated glomerular filtrat ion rate (GFR) non- AmericanOrdered By: Aman Cortes on 05-18-2022 GFR/1.73 sq M.predicted among non-blacks MDRD (S/P/Bld) [Vol rate/Area] > 60 mL/Min [facility] Hematocrit Auto (Bld) [Volum e fraction]Ordered By: Aman Cortes on 05-18-2022 Hematocrit (Bld) [Volume fraction] 40.4 % 34.0-46.4 [facility] Hemoglobin [Mass/volume] in BloodOrdered By: Aman Cortes on 05-18-2022 Hemoglobin (Bld) [Mass/Vol] 13.0 g/dL 11.8-15.4 [facility] Laboratory - Hematology and Cell countsOrdered By: Aman Cortes on 05-18-2022 Nucleated RBC/100 WBC (Bld) [Ratio] 0.1 % 0-0.5 [facility] Leukocytes [#/volume] in Blo od by Automated countOrdered By: Aman Cortes on 05-18-2022 WBC (Bld) [#/Vol] 5.6 10*3/uL 4.5-11.0 [facility] Lymphocytes Auto (Bld) [#/Vo l]Ordered By: Aman Cortes on 05-18-2022 Lymphocytes (Bld) [#/Vol] 2.0 10*3/uL 1.00-4.8 [facility] Lymphocytes/100 WBC Auto (Bl d)Ordered By: Aman Cortes on 05-18-2022 Lymphocytes/100 WBC (Bld) 36.8 % . [facility] MCH Auto (RBC) [Entitic mass ]Ordered By: Aman Cortes on 05-18-2022 MCH (RBC) [Entitic mass] 28.6 pg 24.7-34.3 [facility] MCHC Auto (RBC) [Mass/Vol]Or dered By: Aman Cortes on 05-18-2022 MCHC (RBC) [Mass/Vol] 32.3 g/dL 32.0-35.0 [facility] MCV Auto (RBC) [Entitic vol] Ordered By: Aman Cortes on 05-18-2022 MCV (RBC) [Entitic vol] 88.4 fL 80-100 [facility] Monocytes Auto (Bld) [#/Vol] Ordered By: Aman Cortes on 05-18-2022 Monocytes (Bld) [#/Vol] 0.4 10*3/uL 0.0-0.8 [facility] Monocytes/100 WBC Auto (Bld) Ordered By: Aman Cortes on 05-18-2022 Monocytes/100 WBC (Bld) 7.3 % . [facility] Neutrophils Auto (Bld) [#/Vo l]Ordered By: Aman Cortes on 05-18-2022 Neutrophils (Bld) [#/Vol] 3.0 10*3/uL 1.8-7.7 [facility] Neutrophils/100 WBC Auto (Bl d)Ordered By: Aman Cortes on 05-18-2022 Neutrophils/100 WBC (Bld) 54.7 % . [facility] No Panel InformationOrdered By: Aman Cortes on 05-18-2022 Estimated GFR () > 60 mL/Min [facility] Comment on above: GFR estimated refere nce range: According to KDOQI guidelines, <60 ml/min/1.73m2 is sufficient to diagnose a patient with chronic kidney disease. Pharmacy Creatinine Clearance (Chem 92.05 [facility] Platelet mean volume Auto (B ld) [Entitic vol]Ordered By: Aman Cortes on 05-18-2022 Platelet mean volume (Bld) [Entitic vol] 8.1 fL 6.3-10.7 [facility] Platelets Auto (Bld) [#/Vol] Ordered By: Aman Cortes on 05-18-2022 Platelets (Bld) [#/Vol] 268 10*3/uL 150-450 [facility] Prolactin [Mass/volume] in S alexis or PlasmaOrdered By: Aman Cortes on 05-18-2022 Prolactin [Mass/Vol] 8.64 ng/mL 3.34-26.72 [facility] RBC Auto (Bld) [#/Vol]Ordere d By: Aman Cortes on 05-18-2022 RBC (Bld) [#/Vol] 4.57 10*6/uL 3.60-5.00 [facility] Serum or plasma anion gap de terminationOrdered By: Aman Cortes on 05-18-2022 Anion gap [Moles/Vol] 10.1 mmol/L 6.0-15.0 [facility] Serum or plasma calcium randi urement (mass/volume)Ordered By: Aman Cortes on 05-18-2022 Calcium [Mass/Vol] 9.0 mg/dL 8.2-10.2 [facility] Serum or plasma chloride melonie surement (moles/volume)Ordered By: Aman Cortes on 05-18-2022 Chloride [Moles/Vol] 103 mmol/L 95-114 [facility] Serum or plasma glucose randi urement (mass/volume)Ordered By: Aman Cortes on 05-18-2022 Glucose [Mass/Vol] 110 mg/dL 70-100 [facility] Comment on above: ADA recommended refe rence rangeRandom Glucose Reference Range is dependent on time and content of last meal. Glucose of more than 200 mg/dL in a nonstressed, ambulatory subject supports the diagnosis of Diabetes Mellitus. Serum or plasma potassium me asurement (moles/volume)Ordered By: Aman Cortes on 05-18-2022 Potassium [Moles/Vol] 3.8 mmol/L 3.5-5.1 [facility] Serum or plasma sodium measu rement (moles/volume)Ordered By: Aman Cortes on 05-18-2022 Sodium [Moles/Vol] 138 mmol/L 136-146 [facility] Serum or plasma total carbon dioxide measurement (moles/volume)Ordered By: Aman Cortes on 05-18-2022 CO2 [Moles/Vol] 28.7 mmol/L 22.0-30.[address] [facility] Serum or plasma urea nitroge n measurement (mass/volume)Ordered By: Aman Cortes on 05-18-2022 Urea nitrogen [Mass/Vol] 10 mg/dL 9-23 [facility] CBC AUTO DIFFon 05-15-2022 BASO # 0.0 103/ul Normal 0.0-0.1 [facility] Comment on above: Performed By: #### P REG, ACETON #### [facility] [address] [place] [address] Dr. Jovanni Maya Basophils/100 WBC (Bld) 0.3 % Normal 0.2-2.0 [facility] Comment on above: Performed By: #### P REG, ACETON #### [facility] [address] [place] [address] Dr. Jovanni Maya EO # 0.0 103/ul Normal 0.0-0.7 [facility] Comment on above: Performed By: #### P REG, ACETON #### [facility] [address] [place] [address] Dr. Jovanni Maya Eosinophils/100 WBC (Bld) 0.3 % Critically low 0.9-7.0 [facility] Comment on above: Performed By: #### P REG, ACETON #### [facility] [address] [place] [address] Dr. Jovanni Maya Erythrocyte distribution width (RBC) [Ratio] 13.1 % Normal 11.0-15.0 [facility] Comment on above: Performed By: #### P REG, ACETON #### [facility] [address] [place] [address] Dr. Jovanni Maya Hematocrit (Bld) [Volume fraction] 39.5 % Normal 36.0-48.0 [facility] Comment on above: Performed By: #### P REG, ACETON #### [facility] [address] [place] [address] Dr. Jovanni Maya Hemoglobin (Bld) [Mass/Vol] 13.5 g/dL Normal 12.0-16.0 [facility] Comment on above: Performed By: #### P REG, ACETON #### [facility] [address] [place] [address] Dr. Jovanni Maya IG # 0.04 10e3/ul Critically high 0.00-0.03 [facility] Comment on above: Performed By: #### P REG, ACETON #### [facility] [address] [address] [address] Jovanni Maya IG % 0.4 % Normal 0.0-0.5 [facility] Comment on above: Performed By: #### P REG, ACETON #### [facility] [address] [address] [address] Jovanni Maya LYMPH # 1.9 103/ul Normal 1.2-3.8 [facility] Comment on above: Performed By: #### P REG, ACETON #### [facility] [address] [place] [address] Dr. Jovanni Maya Lymphocytes/100 WBC (Bld) 17.4 % Critically low 20.5-60.0 [facility] Comment on above: Performed By: #### P REG, ACETON #### [facility] [address] [place] [address] Dr. Jovanni Maya MANUAL DIFF REQ NO Normal [facility] Comment on above: Performed By: #### P REG, ACETON #### [facility] [address] [place] [address] Dr. Jovanni Maya MCH (RBC) [Entitic mass] 29.3 pg Normal 26.7-34.0 [facility] Comment on above: Performed By: #### P REG, ACETON #### [facility] [address] [place] [address] Dr. Jovanni Maya MCHC (RBC) [Mass/Vol] 34.2 g/dL Normal 29.9-35.2 [facility] Comment on above: Performed By: #### P REG, ACETON #### [facility] [address] [place] [address] Dr. Jovanni Maya MCV (RBC) [Entitic vol] 85.7 fL Normal 81.0-99.0 [facility] Comment on above: Performed By: #### P REG, ACETON #### [facility] [address] [place] [address] Dr. Jovanni Maya MONO # 0.6 103/ul Normal 0.3-0.8 [facility] Comment on above: Performed By: #### P REG, ACETON #### [facility] [address] [place] [address] Dr. Jovanni Maya Monocytes/100 WBC (Bld) 5.0 % Normal 1.7-12.0 [facility] Comment on above: Performed By: #### P REG, ACETON #### [facility] [address] [place] [address] Dr. Jovanni Maya NEUT # 8.4 103/ul Critically high 1.4-6.5 [facility] Comment on above: Performed By: #### P REG, ACETON #### [facility] [address] [place] [address] Dr. Jovanni Maya Neutrophils/100 WBC (Bld) 76.6 % Critically high 43.0-75.0 [facility] Comment on above: Performed By: #### P REG, ACETON #### [facility] [address] [place] [address] Dr. Jovanni Maya Platelet mean volume (Bld) [Entitic vol] 10.5 fL Normal 9.5-13.5 [facility] Comment on above: Performed By: #### P REG, ACETON #### [facility] [address] [place] [address] Dr. Jovanni Maya PLT 279 103/ul Normal 150-450 [facility] Comment on above: Performed By: #### P REG, ACETON #### [facility] [address] [place] [address] Dr. Jovanni Maya RBC 4.61 106/ul Normal 4.20-5.40 [facility] Comment on above: Performed By: #### P REG, ACETON #### [facility] [address] [place] [address] Dr. Jovanni Maya WBC 11.0 103/ul Normal 4.0-11.0 [facility] Comment on above: Performed By: #### P REG, ACETON #### [facility] [address] [place] [address] Dr. Jovanni Maya ER URINE PROFILEon 2 Bilirubin Ql (U) Negative Normal NEGATIVE [facility] Comment on above: Performed By: #### C MP, HSTROPN #### [facility] [address] [address] [address] Jovanni Maya Clarity (U) CLEAR Normal CLEAR [facility] Comment on above: Performed By: #### C MP, HSTROPN #### [facility] [address] [address] [address] Jovanni Maya Color (U) LT. YELLOW Normal YELLOW [facility] Comment on above: Performed By: #### C MP, HSTROPN #### [facility] [address] [address] [address] Jovanni Maya ERUCHAY A micrscopic examina tion will be performed if indicated. Normal [facility] Comment on above: Performed By: #### C MP, HSTROPN #### [facility] [address] [place] [address] Dr. Jovanni Maya Glucose Ql (U) Negative Normal NEGATIVE [facility] Comment on above: Performed By: #### C MP, HSTROPN #### [facility] [address] [address] [address] Jovanni Maya Hemoglobin Ql (U) Negative Normal NEGATIVE [facility] Comment on above: Performed By: #### C MP, HSTROPN #### [facility] [address] [address] [address] Jovanni Maya Ketones Ql (U) Negative Normal NEGATIVE [facility] Comment on above: Performed By: #### C MP, HSTROPN #### [facility] [address] [address] [address] Jovanni Maya LEUKOCYTES Negative Normal NEGATIVE [facility] Comment on above: Performed By: #### C MP, HSTROPN #### [facility] [address] [address] [address] Jovanni Maya Nitrite Ql (U) Negative Normal NEGATIVE [facility] Comment on above: Performed By: #### C MP, HSTROPN #### [facility] [address] [address] [address] Jovanni Maya pH (U) 7.0 [pH] Normal 5-9 [facility] Comment on above: Performed By: #### C DANIEL, HSTROPN #### [facility] [address] [place] [address] Dr. Jovanni Maya SPEC GRAVITY 1.010 Normal 1.005-<=1. 025 [facility] Comment on above: Performed By: #### C DANIEL, HSTROPN #### [facility] [address] [place] [address] Dr. Jovanni Maya UA PROTEIN Negative Normal NEGATIVE/ TRACE [facility] Comment on above: Performed By: #### C DANIEL, HSTROPN #### [facility] [address] [place] [address] Dr. Jovanni Maya UR MICRO IND NOT INDICATED Normal [facility] Comment on above: Performed By: #### C DANIEL, HSTROPN #### [facility] [address] [place] [address] Dr. Jovanni Maya Urobilinogen Qn (U) 0.2 {Carlos A'U}/dL Normal 0.2 - 1. 0 [facility] Comment on above: Performed By: #### C DANIEL, HSTROPN #### [facility] [address] [place] [address] Dr. Jovanni Maya PROF 14(COMP METB)on 022 Albumin [Mass/Vol] 3.6 g/dL Normal 3.4-5.0 [facility] Comment on above: Performed By: #### P REG, ACETON #### [facility] [address] [place] [address] Dr. Jovanni Maya Albumin/Globulin [Mass ratio] 1.2 {ratio} Normal [facility] Comment on above: Performed By: #### P REG, ACETON #### [facility] [address] [place] [address] Dr. Jovanni Maya ALP [Catalytic activity/Vol] 49 U/L Normal 46-116 [facility] Comment on above: Performed By: #### P REG, ACETON #### [facility] [address] [address] [address] Jovanni Maya ALT [Catalytic activity/Vol] 4 U/L Critically low 14-59 [facility] Comment on above: Performed By: #### P REG, ACETON #### [facility] [address] [address] [address] Jovanni Maya Anion gap [Moles/Vol] 9.0 mmol/L Normal [facility] Comment on above: Performed By: #### P REG, ACETON #### [facility] [address] [place] [address] Dr. Jovanni Maya AST [Catalytic activity/Vol] 10 U/L Critically low 15-37 [facility] Comment on above: Performed By: #### P REG, ACETON #### [facility] [address] [place] [address] Dr. Jovanni Maya Bilirubin [Mass/Vol] 0.4 mg/dL Normal 0.2-1.0 [facility] Comment on above: Performed By: #### P REG, ACETON #### [facility] [address] [address] [address] Jovanni Maya Calcium [Mass/Vol] 8.2 mg/dL Critically low 8.5-10.1 [facility] Comment on above: Performed By: #### P REG, ACETON #### [facility] [address] [place] [address] Dr. Jovanni Maya Chloride [Moles/Vol] 107 mmol/L Normal 98-107 [facility] Comment on above: Performed By: #### P REG, ACETON #### [facility] [address] [address] [address] Jovanni Maya CO2 [Moles/Vol] 25.8 mmol/L Normal 21.0-32.0 [facility] Comment on above: Performed By: #### P REG, ACETON #### [facility] [address] [place] [address] Dr. Jovanni Maya Creatinine [Mass/Vol] 0.73 mg/dL Normal 0.55-1.02 [facility] Comment on above: Performed By: #### P REG, ACETON #### [facility] [address] [address] [address] Jovanni Maya EGFR-AF LUXEMBOURGER >60 Normal >=60 [facility] Comment on above: Performed By: #### P REG, ACETON #### [facility] [address] [address] [address] Jovanni Maya EGFR-NON AF LUXEMBOURGER >60 Normal >=60 [facility] Comment on above: Performed By: #### P REG, ACETON #### [facility] [address] [address] [address] Jovanni Maya Globulin (S) [Mass/Vol] 3.0 g/dL Normal [facility] Comment on above: Performed By: #### P REG, ACETON #### [facility] [address] [address] [address] Jovanni Maya Glucose [Mass/Vol] 121 mg/dL Critically high 74-106 [facility] Comment on above: Performed By: #### P REG, ACETON #### [facility] [address] [address] [address] Jovanni Maya Potassium [Moles/Vol] 3.8 mmol/L Normal 3.5-5.1 [facility] Comment on above: Performed By: #### P REG, ACETON #### [facility] [address] [address] [address] Jovanni Maya Protein [Mass/Vol] 6.6 g/dL Normal 6.4-8.2 [facility] Comment on above: Performed By: #### P REG, ACETON #### [facility] [address] [address] [address] Jovanni Maya Sodium [Moles/Vol] 138 mmol/L Normal 136-145 [facility] Comment on above: Performed By: #### P REG, ACETON #### [facility] [address] [address] [address] Jovanni Maya Urea nitrogen [Mass/Vol] 9.0 mg/dL Normal 7.0-18.0 [facility] Comment on above: Performed By: #### P REG, ACETON #### [facility] [address] [address] [address] Jovanni Maya Urea nitrogen/Creatinine [Mass ratio] 12.3 mg/mg Normal [facility] Comment on above: Performed By: #### P REG, ACETON #### [facility] [address] [address] [address] Jovanni Maya Albumin [Mass/volume] in Ser um or PlasmaOrdered By: Luz Fiore on 04-22-2022 Albumin [Mass/Vol] 4.1 g/dL 3.2-5.5 [facility] Amphetamine Screen Ql (U)Ord ered By: Luz Fiore on 04-22-2022 Amphetamines Ql (U) Negative Negative [facility] Automated erythrocytes count in urine sediment (number/area)Ordered By: Luz Fiore on 04-22-2022 RBC Auto (Urine sed) [#/Area] 5-9 [HPF] 0-4 [facility] Automated leukocytes count i n urine sediment (number/area)Ordered By: Luz Fiore on 04-22-2022 WBC Auto (Urine sed) [#/Area] 1-2 [HPF] 0-4 [facility] Barbiturates [Presence] in U rineOrdered By: Luz Fiore on 04-22-2022 Barbiturates Ql (U) Negative Negative [facility] Basophils Auto (Bld) [#/Vol] Ordered By: Luz Fiore on 04-22-2022 Basophils (Bld) [#/Vol] 0.0 10*3/uL 0.0-0.2 [facility] Basophils/100 WBC Auto (Bld) Ordered By: Luz Fiore on 04-22-2022 Basophils/100 WBC (Bld) 0.4 % . [facility] Benzodiazepines [Presence] i n UrineOrdered By: Luz Fiore on 04-22-2022 Benzodiazepines Ql (U) Negative Negative [facility] Bilirubin Test strip Ql (U)O rdered By: Luz Fiore on 04-22-2022 Bilirubin Ql (U) Negative Negative [facility] Cannabinoids [Presence] in U rine by Screen methodOrdered By: Luz Fiore on 04-22-2022 Cannabinoids Screen Ql (U) Positive Negative [facility] Comment on above: These are unconfirme d results and should not be used for legal purposes. Drug Cut-Off Concentration: AMPH 1000 ng/mL DOMINIQUE 200 ng/mL BRICE 200 ng/mL COCM 300 ng/mL OP 300 ng/mL PCP 25 ng/mL THC 20 ng/mL Color Auto (U)Ordered By: Giovanni Fiore on 04-22-2022 Color (U) Yellow Yellow [facility] Creatinine and Glomerular fi ltration rate.predicted panel (S/P/Bld)Ordered By: Luz Fiore on 04-22-2022 Creatinine [Mass/Vol] 0.72 mg/dL 0.44-1.03 [facility] Eosinophils Auto (Bld) [#/Vo l]Ordered By: Luz Fiore on 04-22-2022 Eosinophils (Bld) [#/Vol] 0.0 10*3/uL 0.0-0.45 [facility] Eosinophils/100 WBC Auto (Bl d)Ordered By: Luz Fiore on 04-22-2022 Eosinophils/100 WBC (Bld) 0.6 % . [facility] Erythrocyte distribution wid th Auto (RBC) [Ratio]Ordered By: Luz Fiore on 04-22-2022 Erythrocyte distribution width (RBC) [Ratio] 14.6 % 11.9-15.3 [facility] Estimated glomerular filtrat ion rate (GFR) non- AmericanOrdered By: Luz Fiore on 04-22-2022 GFR/1.73 sq M.predicted among non-blacks MDRD (S/P/Bld) [Vol rate/Area] > 60 mL/Min [facility] Globulin Calc (S) [Mass/Vol] Ordered By: Luz Fiore on 04-22-2022 Globulin (S) [Mass/Vol] 3.2 g/dL [facility] Hematocrit Auto (Bld) [Volum e fraction]Ordered By: Luz Fiore on 04-22-2022 Hematocrit (Bld) [Volume fraction] 40.7 % 34.0-46.4 [facility] Hemoglobin [Mass/volume] in BloodOrdered By: Luz Fiore on 04-22-2022 Hemoglobin (Bld) [Mass/Vol] 13.4 g/dL 11.8-15.4 [facility] Ketones Auto test strip (U) [Mass/Vol]Ordered By: Luz Fiore on 04-22-2022 Ketones (U) [Mass/Vol] Negative Negative [facility] - Drug toxicology Ordered By: Luz Fiore on 04-22-2022 Opiates Ql (U) Negative Negative [facility] Laboratory - Hematology and Cell countsOrdered By: Luz Fiore on 04-22-2022 Nucleated RBC/100 WBC (Bld) [Ratio] 0.1 % 0-0.5 [facility] - UrinalysisOrder ed By: Luz Fiore on 04-22-2022 Hyaline casts LM Ql (Urine sed) 0-8 [LPF] 0-8 [facility] Leukocytes [#/volume] in Blo od by Automated countOrdered By: Luz Fiore on 04-22-2022 WBC (Bld) [#/Vol] 7.2 10*3/uL 4.5-11.0 [facility] Lymphocytes Auto (Bld) [#/Vo l]Ordered By: Luz Fiore on 04-22-2022 Lymphocytes (Bld) [#/Vol] 2.2 10*3/uL 1.00-4.8 [facility] Lymphocytes/100 WBC Auto (Bl d)Ordered By: Luz Fiore on 04-22-2022 Lymphocytes/100 WBC (Bld) 30.1 % . [facility] MCH Auto (RBC) [Entitic mass ]Ordered By: Luz Fiore on 04-22-2022 MCH (RBC) [Entitic mass] 28.8 pg 24.7-34.3 [facility] MCHC Auto (RBC) [Mass/Vol]Or dered By: Luz Fiore on 04-22-2022 MCHC (RBC) [Mass/Vol] 32.9 g/dL 32.0-35.0 [facility] MCV Auto (RBC) [Entitic vol] Ordered By: Luz Fiore on 04-22-2022 MCV (RBC) [Entitic vol] 87.4 fL 80-100 [facility] Monocytes Auto (Bld) [#/Vol] Ordered By: Luz Fiore on 04-22-2022 Monocytes (Bld) [#/Vol] 0.5 10*3/uL 0.0-0.8 [facility] Monocytes/100 WBC Auto (Bld) Ordered By: Luz Fiore on 04-22-2022 Monocytes/100 WBC (Bld) 7.1 % . [facility] Neutrophils Auto (Bld) [#/Vo l]Ordered By: Luz Fiore on 04-22-2022 Neutrophils (Bld) [#/Vol] 4.4 10*3/uL 1.8-7.7 [facility] Neutrophils/100 WBC Auto (Bl d)Ordered By: Luz Fiore on 04-22-2022 Neutrophils/100 WBC (Bld) 61.8 % . [facility] Nitrite Test strip Ql (U)Ord ered By: Luz Fiore on 04-22-2022 Nitrite Ql (U) Negative Negative [facility] No Panel InformationOrdered By: Luz Fiore on 04-22-2022 Estimated GFR () > 60 mL/Min [facility] Comment on above: GFR estimated refere nce range: According to KDOQI guidelines, <60 ml/min/1.73m2 is sufficient to diagnose a patient with chronic kidney disease. Pharmacy Creatinine Clearance (Chem 94.05 [facility] Phencyclidine Screen Ql (U)O rdered By: Luz Fiore on 04-22-2022 Phencyclidine Ql (U) Negative Negative [facility] Platelet mean volume Auto (B ld) [Entitic vol]Ordered By: Luz Fiore on 04-22-2022 Platelet mean volume (Bld) [Entitic vol] 8.2 fL 6.3-10.7 [facility] Platelets Auto (Bld) [#/Vol] Ordered By: Luz Fiore on 04-22-2022 Platelets (Bld) [#/Vol] 268 10*3/uL 150-450 [facility] Protein Auto test strip (U) [Mass/Vol]Ordered By: Luz Fiore on 04-22-2022 Protein (U) [Mass/Vol] Negative Negative [facility] Protein [Mass/volume] in Ser um or PlasmaOrdered By: Luz Fiore on 04-22-2022 Protein [Mass/Vol] 7.3 g/dL 6.1-7.9 [facility] RBC Auto (Bld) [#/Vol]Ordere d By: Luz Fiore on 04-22-2022 RBC (Bld) [#/Vol] 4.66 10*6/uL 3.60-5.00 [facility] Serum or plasma alanine white otransferase measurement without P-5'-P (enzymatic activiOrdered By: Luz Fiore on 04-22-2022 ALT No additional P-5'-P [Catalytic activity/Vol] 10 U/L 10-60 [facility] Serum or plasma albumin/glob ulin mass ratioOrdered By: Luz Fiore on 04-22-2022 Albumin/Globulin [Mass ratio] 1.3 {ratio} [facility] Serum or plasma alkaline ignacio sphatase measurement (enzymatic activity/volume)Ordered By: Luz Fiore on 04-22-2022 ALP [Catalytic activity/Vol] 49 U/L 32-92 [facility] Serum or plasma anion gap de terminationOrdered By: Luz Fiore on 04-22-2022 Anion gap [Moles/Vol] 11.7 mmol/L 6.0-15.0 [facility] Serum or plasma aspartate am inotransferase measurement (enzymatic activity/volume)Ordered By: Luz Fiore on 04-22-2022 AST [Catalytic activity/Vol] 17 U/L 10-42 [facility] Serum or plasma calcium randi urement (mass/volume)Ordered By: Luz Fiore on 04-22-2022 Calcium [Mass/Vol] 9.4 mg/dL 8.2-10.2 [facility] Serum or plasma chloride melonie surement (moles/volume)Ordered By: Luz Fiore on 04-22-2022 Chloride [Moles/Vol] 102 mmol/L 95-114 [facility] Serum or plasma glucose randi urement (mass/volume)Ordered By: Luz Fiore on 04-22-2022 Glucose [Mass/Vol] 101 mg/dL 70-100 [facility] Comment on above: ADA recommended refe rence rangeRandom Glucose Reference Range is dependent on time and content of last meal. Glucose of more than 200 mg/dL in a nonstressed, ambulatory subject supports the diagnosis of Diabetes Mellitus. Serum or plasma potassium me asurement (moles/volume)Ordered By: Luz Fiore on 04-22-2022 Potassium [Moles/Vol] 3.9 mmol/L 3.5-5.1 [facility] Serum or plasma sodium measu rement (moles/volume)Ordered By: Luz Fiore on 04-22-2022 Sodium [Moles/Vol] 139 mmol/L 136-146 [facility] Serum or plasma total biliru bin measurement (mass/volume)Ordered By: Luz Fiore on 04-22-2022 Bilirubin [Mass/Vol] 0.7 mg/dL 0.3-1.2 [facility] Serum or plasma total carbon dioxide measurement (moles/volume)Ordered By: Luz Fiore on 04-22-2022 CO2 [Moles/Vol] 29.2 mmol/L 22.0-30.[address] [facility] Serum or plasma urea nitroge n measurement (mass/volume)Ordered By: Luz Fiore on 04-22-2022 Urea nitrogen [Mass/Vol] 6 mg/dL 9- [facility] Specific gravity Auto test s trip (U) [Rel density]Ordered By: Luz Fiore on 04-22-2022 Specific gravity (U) [Rel density] 1.017 1.001-1.03 0 [facility] Squamous epithelial cells de tection in urine sediment by light microscopyOrdered By: Luz Fiore 04-22-2022 Epithelial cells.squamous LM Ql (Urine sed) 0-1 [HPF] 0-2 [facility] Urine bacteria detection by automated methodOrdered By: Luz Fiore on 04-22-2022 Bacteria Auto Ql (U) None seen None Seen [facility] Urine clarity by refractomet ry automatedOrdered By: Luz Fiore on 04-22-2022 Clarity Refractometry automated (U) Turbid Clear [facility] Urine cocaine detectionOrder ed By: Luz Fiore on 04-22-2022 Cocaine Ql (U) Negative Negative [facility] Urine glucose measurement by automated test strip (mass/volume)Ordered By: Luz Fiore on 04-22-2022 Glucose Auto test strip (U) [Mass/Vol] Normal mg/dL Normal [facility] Urine hemoglobin detection b y automated test stripOrdered By: Luz Fiore on 04-22-2022 Hemoglobin Auto test strip Ql (U) 2+ Negative [facility] Urine leukocyte esterase det ection by automated test stripOrdered By: Luz Fiore on 04-22-2022 Leukocyte esterase Auto test strip Ql (U) Negative Negative [facility] Urobilinogen Auto test strip (U) [Mass/Vol]Ordered By: Luz Fiore on 04-22-2022 Urobilinogen (U) [Mass/Vol] Normal mg/dL Normal [facility] Yeast detection in urine sed iment by light microscopyOrdered By: Luz Fiore on 04-22-2022 Yeast LM Ql (Urine sed) None seen [HPF] None Seen [facility] pH Auto test strip (U)Ordere d By: Luz Fiore on 04-22-2022 pH (U) 7.0 [pH] 5.0-9.0 [facility] Urine culture routineOrdered By: Luz Fiore on 04-07-2022 Bacteria identified Cx Nom (U) No Growth 2 Days [facility] Amphetamine Screen Ql (U)Ord ered By: Luz Fiore on 04-05-2022 Amphetamines Ql (U) Negative Negative [facility] Automated erythrocytes count in urine sediment (number/area)Ordered By: Luz Fiore on 04-05-2022 RBC Auto (Urine sed) [#/Area] 5-9 [HPF] 0-4 [facility] Automated leukocytes count i n urine sediment (number/area)Ordered By: Luz Fiore on 04-05-2022 WBC Auto (Urine sed) [#/Area] 5-9 [HPF] 0-4 [facility] Barbiturates [Presence] in U rineOrdered By: Luz Fiore on 04-05-2022 Barbiturates Ql (U) Negative Negative [facility] Basophils Auto (Bld) [#/Vol] Ordered By: Luz Fiore on 04-05-2022 Basophils (Bld) [#/Vol] 0.0 10*3/uL 0.0-0.2 [facility] Basophils/100 WBC Auto (Bld) Ordered By: Luz Fiore on 04-05-2022 Basophils/100 WBC (Bld) 0.5 % . [facility] Benzodiazepines [Presence] i n UrineOrdered By: Luz Fiore on 04-05-2022 Benzodiazepines Ql (U) Negative [facility] Bilirubin Test strip Ql (U)O rdered By: Luz Fiore on 04-05-2022 Bilirubin Ql (U) Negative Negative [facility] Blood hemoglobin measurement (mass/volume)Ordered By: Luz Fiore on 04-05-2022 Hemoglobin (Bld) [Mass/Vol] 13.4 g/dL 11.8-15.4 [facility] Blood leukocytes automated c ount (number/volume)Ordered By: Luz Fiore on 04-05-2022 WBC (Bld) [#/Vol] 6.5 10*3/uL 4.5-11.0 [facility] Cannabinoids [Presence] in U rine by Screen methodOrdered By: Luz Fiore on 04-05-2022 Cannabinoids Screen Ql (U) Positive Negative [facility] Comment on above: These are unconfirme d results and should not be used for legal purposes. Drug Cut-Off Concentration: AMPH 1000 ng/mL DOMINIQUE 200 ng/mL BRICE 200 ng/mL COCM 300 ng/mL OP 300 ng/mL PCP 25 ng/mL THC 20 ng/mL Color Auto (U)Ordered By: Giovanni Firoe on 04-05-2022 Color (U) Yellow Yellow [facility] Creatinine and Glomerular fi ltration rate.predicted panel (S/P/Bld)Ordered By: Luz Fiore on 04-05-2022 Creatinine [Mass/Vol] 0.73 mg/dL 0.44-1.03 [facility] Eosinophils Auto (Bld) [#/Vo l]Ordered By: Luz Fiore on 04-05-2022 Eosinophils (Bld) [#/Vol] 0.0 10*3/uL 0.0-0.45 [facility] Eosinophils/100 WBC Auto (Bl d)Ordered By: Luz Fiore on 04-05-2022 Eosinophils/100 WBC (Bld) 0.5 % . [facility] Erythrocyte distribution wid th Auto (RBC) [Ratio]Ordered By: Luz Fiore on 04-05-2022 Erythrocyte distribution width (RBC) [Ratio] 14.2 % 11.9-15.3 [facility] Estimated glomerular filtrat ion rate (GFR) non- AmericanOrdered By: Luz Fiore on 04-05-2022 GFR/1.73 sq M.predicted among non-blacks MDRD (S/P/Bld) [Vol rate/Area] > 60 mL/Min [facility] HCG ( test) IA.rapi d Ql (U)Ordered By: uLz Fiore on 04-05-2022 HCG ( test) Ql (U) Negative [facility] Hematocrit Auto (Bld) [Volum e fraction]Ordered By: Luz Fiore on 04-05-2022 Hematocrit (Bld) [Volume fraction] 40.4 % 34.0-46.4 [facility] Ketones Auto test strip (U) [Mass/Vol]Ordered By: Luz Fiore on 04-05-2022 Ketones (U) [Mass/Vol] Negative Negative [facility] - Drug toxicology Ordered By: Luz Fiore on 04-05-2022 Opiates Ql (U) Negative Negative [facility] Laboratory - Hematology and Cell countsOrdered By: Luz Fiore on 04-05-2022 Nucleated RBC/100 WBC (Bld) [Ratio] 0.1 % 0-0.5 [facility] Laboratory - UrinalysisOrder ed By: Luz Fiore on 04-05-2022 Hyaline casts LM Ql (Urine sed) 0-8 [LPF] 0-8 [facility] Lymphocytes Auto (Bld) [#/Vo l]Ordered By: Luz Fiore on 04-05-2022 Lymphocytes (Bld) [#/Vol] 2.0 10*3/uL 1.00-4.8 [facility] Lymphocytes/100 WBC Auto (Bl d)Ordered By: Luz Fiore on 04-05-2022 Lymphocytes/100 WBC (Bld) 30.0 % . [facility] MCH Auto (RBC) [Entitic mass ]Ordered By: Luz Fiore on 04-05-2022 MCH (RBC) [Entitic mass] 28.8 pg 24.7-34.3 [facility] MCHC Auto (RBC) [Mass/Vol]Or dered By: Luz Fiore on 04-05-2022 MCHC (RBC) [Mass/Vol] 33.2 g/dL 32.0-35.0 [facility] MCV Auto (RBC) [Entitic vol] Ordered By: Luz Fiore on 04-05-2022 MCV (RBC) [Entitic vol] 86.6 fL 80-100 [facility] Monocytes Auto (Bld) [#/Vol] Ordered By: Luz Fiore on 04-05-2022 Monocytes (Bld) [#/Vol] 0.5 10*3/uL 0.0-0.8 [facility] Monocytes/100 WBC Auto (Bld) Ordered By: Luz Fiore on 04-05-2022 Monocytes/100 WBC (Bld) 7.0 % . [facility] Neutrophils Auto (Bld) [#/Vo l]Ordered By: Luz Fiore on 04-05-2022 Neutrophils (Bld) [#/Vol] 4.0 10*3/uL 1.8-7.7 [facility] Neutrophils/100 WBC Auto (Bl d)Ordered By: Luz Fiore on 04-05-2022 Neutrophils/100 WBC (Bld) 62.0 % . [facility] Nitrite Test strip Ql (U)Ord ered By: Luz Fiore on 04-05-2022 Nitrite Ql (U) Negative Negative [facility] No Panel InformationOrdered By: Luz Fiore on 04-05-2022 Estimated GFR () > 60 mL/Min [facility] Comment on above: GFR estimated refere nce range: According to KDOQI guidelines, <60 ml/min/1.73m2 is sufficient to diagnose a patient with chronic kidney disease. Pharmacy Creatinine Clearance (Chem 92.76 [facility] Phencyclidine Screen Ql (U)O rdered By: Luz Fiore on 04-05-2022 Phencyclidine Ql (U) Negative Negative [facility] Platelet mean volume Auto (B ld) [Entitic vol]Ordered By: Luz Fiore on 04-05-2022 Platelet mean volume (Bld) [Entitic vol] 7.8 fL 6.3-10.7 [facility] Platelets Auto (Bld) [#/Vol] Ordered By: Luz Fiore on 04-05-2022 Platelets (Bld) [#/Vol] 278 10*3/uL 150-450 [facility] Protein Auto test strip (U) [Mass/Vol]Ordered By: Luz Fiore on 04-05-2022 Protein (U) [Mass/Vol] Negative Negative Fi [facility] RBC Auto (Bld) [#/Vol]Ordere d By: Luz Fiore on 04-05-2022 RBC (Bld) [#/Vol] 4.66 10*6/uL 3.60-5.00 [facility] Serum or plasma anion gap de terminationOrdered By: Luz Fiore on 04-05-2022 Anion gap [Moles/Vol] 14.4 mmol/L 6.0-15.0 [facility] Serum or plasma calcium randi urement (mass/volume)Ordered By: Luz Fiore on 04-05-2022 Calcium [Mass/Vol] 9.5 mg/dL 8.2-10.2 [facility] Serum or plasma chloride melonie surement (moles/volume)Ordered By: Luz Fiore on 04-05-2022 Chloride [Moles/Vol] 100 mmol/L 95-114 [facility] Serum or plasma glucose randi urement (mass/volume)Ordered By: Luz Fiore on 04-05-2022 Glucose [Mass/Vol] 97 mg/dL 70-100 [facility] Comment on above: ADA recommended refe rence rangeRandom Glucose Reference Range is dependent on time and content of last meal. Glucose of more than 200 mg/dL in a nonstressed, ambulatory subject supports the diagnosis of Diabetes Mellitus. Serum or plasma potassium me asurement (moles/volume)Ordered By: Luz Fiore on 04-05-2022 Potassium [Moles/Vol] 4.1 mmol/L 3.5-5.1 [facility] Serum or plasma sodium measu rement (moles/volume)Ordered By: Luz Fiore on 04-05-2022 Sodium [Moles/Vol] 139 mmol/L 136-146 [facility] Serum or plasma total carbon dioxide measurement (moles/volume)Ordered By: Luz Fiore on 04-05-2022 CO2 [Moles/Vol] 28.7 mmol/L 22.0-30.[address] [facility] Serum or plasma urea nitroge n measurement (mass/volume)Ordered By: Luz Fiore on 04-05-2022 Urea nitrogen [Mass/Vol] 7 mg/dL 9-23 [facility] Specific gravity Auto test s trip (U) [Rel density]Ordered By: Luz Fiore on 04-05-2022 Specific gravity (U) [Rel density] 1.011 1.001-1.03 0 [facility] Squamous epithelial cells de tection in urine sediment by light microscopyOrdered By: Luz Fiore on 04-05-2022 Epithelial cells.squamous LM Ql (Urine sed) 1-2 [HPF] 0-2 [facility] Urine bacteria detection by automated methodOrdered By: Luz Fiore on 04-05-2022 Bacteria Auto Ql (U) None seen None Seen [facility] Urine clarity by refractomet ry automatedOrdered By: Luz Fiore on 04-05-2022 Clarity Refractometry automated (U) Cloudy Clear [facility] Urine cocaine detectionOrder ed By: Luz Fiore on 04-05-2022 Cocaine Ql (U) Negative Negative [facility] Urine glucose measurement by automated test strip (mass/volume)Ordered By: Luz Fiore on 04-05-2022 Glucose Auto test strip (U) [Mass/Vol] Normal mg/dL Normal [facility] Urine hemoglobin detection b y automated test stripOrdered By: Luz Fiore on 04-05-2022 Hemoglobin Auto test strip Ql (U) Trace Negative [facility] Urine leukocyte esterase det ection by automated test stripOrdered By: Luz Fiore on 04-05-2022 Leukocyte esterase Auto test strip Ql (U) 1+ Negative [facility] Urobilinogen Auto test strip (U) [Mass/Vol]Ordered By: Luz Fiore on 04-05-2022 Urobilinogen (U) [Mass/Vol] Normal mg/dL Normal [facility] pH Auto test strip (U)Ordere d By: Luz Fiore on 04-05-2022 pH (U) 7.0 [pH] 5.0-9.0 [facility] Urine culture routineOrdered By: Mario Alberto Jose on 04-01-2022 Bacteria identified Cx Nom (U) 2 Days [facility] Automated erythrocytes count in urine sediment (number/area)Ordered By: Mario Alberto Jose on 03-30-2022 RBC Auto (Urine sed) [#/Area] 5-9 [HPF] 0-4 [facility] Automated leukocytes count i n urine sediment (number/area)Ordered By: Mario Alberto Jose on 03-30-2022 WBC Auto (Urine sed) [#/Area] 5-9 [HPF] 0-4 [facility] Basophils Auto (Bld) [#/Vol] Ordered By: Mario Alberto Jose on 03-30-2022 Basophils (Bld) [#/Vol] 0.0 10*3/uL 0.0-0.2 [facility] Basophils/100 WBC Auto (Bld) Ordered By: Mario Alberto Jose on 03-30-2022 Basophils/100 WBC (Bld) 0.4 % . [facility] Bilirubin Test strip Ql (U)O rdered By: Mario Alberto Jose on 03-30-2022 Bilirubin Ql (U) Negative Negative [facility] Blood hemoglobin measurement (mass/volume)Ordered By: Mario Alberto Jose on 03-30-2022 Hemoglobin (Bld) [Mass/Vol] 14.6 g/dL 11.8-15.4 [facility] Blood leukocytes automated c ount (number/volume)Ordered By: Mario Alberto Jose on 03-30-2022 WBC (Bld) [#/Vol] 7.6 10*3/uL 4.5-11.0 [facility] Color Auto (U)Ordered By: Sushma Jose on 03-30-2022 Color (U) Yellow Yellow [facility] Creatinine and Glomerular fi ltration rate.predicted panel (S/P/Bld)Ordered By: Mario Alberto Jose on 03-30-2022 Creatinine [Mass/Vol] 0.80 mg/dL 0.44-1.03 [facility] Eosinophils Auto (Bld) [#/Vo l]Ordered By: Mario Alberto Jose on 03-30-2022 Eosinophils (Bld) [#/Vol] 0.1 10*3/uL 0.0-0.45 [facility] Eosinophils/100 WBC Auto (Bl d)Ordered By: Mario Alberto Jose on 03-30-2022 Eosinophils/100 WBC (Bld) 0.8 % . [facility] Erythrocyte distribution wid th Auto (RBC) [Ratio]Ordered By: Mario Alberto Jose on 03-30-2022 Erythrocyte distribution width (RBC) [Ratio] 14.4 % 11.9-15.3 [facility] Estimated glomerular filtrat ion rate (GFR) non- AmericanOrdered By: Mario Alberto Jose on 03-30-2022 GFR/1.73 sq M.predicted among non-blacks MDRD (S/P/Bld) [Vol rate/Area] > 60 mL/Min [facility] Hematocrit Auto (Bld) [Volum e fraction]Ordered By: Mario Alberto Jose on 03-30-2022 Hematocrit (Bld) [Volume fraction] 43.8 % 34.0-46.4 [facility] Ketones Auto test strip (U) [Mass/Vol]Ordered By: Mario Alberto Jose on 03-30-2022 Ketones (U) [Mass/Vol] Negative Negative [facility] - Hematology and Cell countsOrdered By: Mario Alberto Jose on 03-30-2022 Nucleated RBC/100 WBC (Bld) [Ratio] 0.1 % 0-0.5 [facility] Laboratory - UrinalysisOrder ed By: Mario Alberto Jose on 03-30-2022 Hyaline casts LM Ql (Urine sed) 0-8 [LPF] 0-8 [facility] Lymphocytes Auto (Bld) [#/Vo l]Ordered By: Mario Alberto Jose on 03-30-2022 Lymphocytes (Bld) [#/Vol] 2.4 10*3/uL 1.00-4.8 [facility] Lymphocytes/100 WBC Auto (Bl d)Ordered By: Mario Alberto Jose on 03-30-2022 Lymphocytes/100 WBC (Bld) 31.6 % . [facility] MCH Auto (RBC) [Entitic mass ]Ordered By: Mario Alberto Jose on 03-30-2022 MCH (RBC) [Entitic mass] 28.9 pg 24.7-34.3 [facility] MCHC Auto (RBC) [Mass/Vol]Or dered By: Mario Alberto Jose on 03-30-2022 MCHC (RBC) [Mass/Vol] 33.4 g/dL 32.0-35.0 [facility] MCV Auto (RBC) [Entitic vol] Ordered By: Mario Alberto Jose on 03-30-2022 MCV (RBC) [Entitic vol] 86.6 fL 80-100 [facility] Monocytes Auto (Bld) [#/Vol] Ordered By: Mario Alberto Jose on 03-30-2022 Monocytes (Bld) [#/Vol] 0.5 10*3/uL 0.0-0.8 [facility] Monocytes/100 WBC Auto (Bld) Ordered By: Mario Alberto Jose on 03-30-2022 Monocytes/100 WBC (Bld) 7.0 % . [facility] Neutrophils Auto (Bld) [#/Vo l]Ordered By: Mario Alberto Jose on 03-30-2022 Neutrophils (Bld) [#/Vol] 4.6 10*3/uL 1.8-7.7 [facility] Neutrophils/100 WBC Auto (Bl d)Ordered By: Mario Alberto Jose on 03-30-2022 Neutrophils/100 WBC (Bld) 60.2 % . [facility] Nitrite Test strip Ql (U)Ord ered By: Mario Alberto Jose on 03-30-2022 Nitrite Ql (U) Negative Negative [facility] No Panel InformationOrdered By: Mario Alberto Jose on 03-30-2022 Estimated GFR () > 60 mL/Min [facility] Comment on above: GFR estimated refere nce range: According to KDOQI guidelines, <60 ml/min/1.73m2 is sufficient to diagnose a patient with chronic kidney disease. Pharmacy Creatinine Clearance (Chem 84.65 [facility] Platelet mean volume Auto (B ld) [Entitic vol]Ordered By: Mario Alberto Jose on 03-30-2022 Platelet mean volume (Bld) [Entitic vol] 8.4 fL 6.3-10.7 [facility] Platelets Auto (Bld) [#/Vol] Ordered By: Mario Alberto Jose on 03-30-2022 Platelets (Bld) [#/Vol] 286 10*3/uL 150-450 [facility] Protein Auto test strip (U) [Mass/Vol]Ordered By: Mario Alberto Jose on 03-30-2022 Protein (U) [Mass/Vol] Negative Negative [facility] RBC Auto (Bld) [#/Vol]Ordere d By: Mario Alberto Jose on 03-30-2022 RBC (Bld) [#/Vol] 5.05 10*6/uL 3.60-5.00 [facility] Serum or plasma anion gap de terminationOrdered By: Mario Alberto Jose on 03-30-2022 Anion gap [Moles/Vol] 15.0 mmol/L 6.0-15.0 [facility] Serum or plasma calcium randi urement (mass/volume)Ordered By: Mario Alberto Jose on 03-30-2022 Calcium [Mass/Vol] 9.9 mg/dL 8.2-10.2 [facility] Serum or plasma chloride melonie surement (moles/volume)Ordered By: Mario Alberto Jose on 03-30-2022 Chloride [Moles/Vol] 100 mmol/L 95-114 [facility] Serum or plasma glucose randi urement (mass/volume)Ordered By: Mario Alberto Jose on 03-30-2022 Glucose [Mass/Vol] 104 mg/dL 70-100 [facility] Comment on above: ADA recommended refe rence rangeRandom Glucose Reference Range is dependent on time and content of last meal. Glucose of more than 200 mg/dL in a nonstressed, ambulatory subject supports the diagnosis of Diabetes Mellitus. Serum or plasma potassium me asurement (moles/volume)Ordered By: Mario Alberto Jose on 03-30-2022 Potassium [Moles/Vol] 4.1 mmol/L 3.5-5.1 [facility] Serum or plasma sodium measu rement (moles/volume)Ordered By: Mario Alberto Jose on 03-30-2022 Sodium [Moles/Vol] 138 mmol/L 136-146 [facility] Serum or plasma total carbon dioxide measurement (moles/volume)Ordered By: Mario Alberto Jose on 03-30-2022 CO2 [Moles/Vol] 27.1 mmol/L 22.0-30.[address] [facility] Serum or plasma urea nitroge n measurement (mass/volume)Ordered By: Mario Alberto Jose on 03-30-2022 Urea nitrogen [Mass/Vol] 10 mg/dL 9-23 [facility] Specific gravity Auto test s trip (U) [Rel density]Ordered By: Mario Alberto Jose on 03-30-2022 Specific gravity (U) [Rel density] 1.007 1.001-1.03 0 [facility] Squamous epithelial cells de tection in urine sediment by light microscopyOrdered By: Mario Alberto Jose on 03-30-2022 Epithelial cells.squamous LM Ql (Urine sed) 3-4 [HPF] 0-2 [facility] Urine bacteria detection by automated methodOrdered By: Mario Alberto Jose on 03-30-2022 Bacteria Auto Ql (U) 1+ None Seen [facility] Urine clarity by refractomet ry automatedOrdered By: Mario Alberto Jose on 03-30-2022 Clarity Refractometry automated (U) Clear Clear [facility] Urine glucose measurement by automated test strip (mass/volume)Ordered By: Mario Alberto Jose on 03-30-2022 Glucose Auto test strip (U) [Mass/Vol] Normal mg/dL Normal [facility] Urine hemoglobin detection b y automated test stripOrdered By: Mario Alberto Jose on 03-30-2022 Hemoglobin Auto test strip Ql (U) Negative Negative [facility] Urine leukocyte esterase det ection by automated test stripOrdered By: Mario Alberto Jose on 03-30-2022 Leukocyte esterase Auto test strip Ql (U) 1+ Negative [facility] Urobilinogen Auto test strip (U) [Mass/Vol]Ordered By: Mario Alberto Jose on 03-30-2022 Urobilinogen (U) [Mass/Vol] Normal mg/dL Normal [facility] pH Auto test strip (U)Ordere d By: Mario Alberto Jose on 03-30-2022 pH (U) 7.5 [pH] 5.0-9.0 [facility] Albumin [Mass/volume] in Ser um or PlasmaOrdered By: Los Mcnally on 03-19-2022 Albumin [Mass/Vol] 4.8 g/dL 3.2-5.5 [facility] Basophils Auto (Bld) [#/Vol] Ordered By: Los Mcnally on 03-19-2022 Basophils (Bld) [#/Vol] 0.0 10*3/uL 0.0-0.2 [facility] Basophils/100 WBC Auto (Bld) Ordered By: Los Mcnally on 03-19-2022 Basophils/100 WBC (Bld) 0.6 % . [facility] Blood hemoglobin measurement (mass/volume)Ordered By: Los Mcnally on 03-19-2022 Hemoglobin (Bld) [Mass/Vol] 14.3 g/dL 11.8-15.4 [facility] Blood leukocytes automated c ount (number/volume)Ordered By: Los Mcnally on 03-19-2022 WBC (Bld) [#/Vol] 7.5 10*3/uL 4.5-11.0 [facility] Creatinine and Glomerular fi ltration rate.predicted panel (S/P/Bld)Ordered By: Los Mcnally on 03-19-2022 Creatinine [Mass/Vol] 0.91 mg/dL 0.44-1.03 [facility] Eosinophils Auto (Bld) [#/Vo l]Ordered By: Los Mcnally on 03-19-2022 Eosinophils (Bld) [#/Vol] 0.1 10*3/uL 0.0-0.45 [facility] Eosinophils/100 WBC Auto (Bl d)Ordered By: Los Mcnally on 03-19-2022 Eosinophils/100 WBC (Bld) 1.4 % . [facility] Erythrocyte distribution wid th Auto (RBC) [Ratio]Ordered By: Los Mcnally on 03-19-2022 Erythrocyte distribution width (RBC) [Ratio] 14.9 % 11.9-15.3 [facility] Estimated glomerular filtrat ion rate (GFR) non- AmericanOrdered By: Los Mcnally on 03-19-2022 GFR/1.73 sq M.predicted among non-blacks MDRD (S/P/Bld) [Vol rate/Area] > 60 mL/Min [facility] Globulin Calc (S) [Mass/Vol] Ordered By: Los Mcnally on 03-19-2022 Globulin (S) [Mass/Vol] 3.6 g/dL [facility] Hematocrit Auto (Bld) [Volum e fraction]Ordered By: Los Mcnally on 03-19-2022 Hematocrit (Bld) [Volume fraction] 43.6 % 34.0-46.4 [facility] Laboratory - Hematology and Cell countsOrdered By: Los Mcnally on 03-19-2022 Nucleated RBC/100 WBC (Bld) [Ratio] 0.0 % 0-0.5 [facility] Lymphocytes Auto (Bld) [#/Vo l]Ordered By: Los Mcnally on 03-19-2022 Lymphocytes (Bld) [#/Vol] 2.6 10*3/uL 1.00-4.8 [facility] Lymphocytes/100 WBC Auto (Bl d)Ordered By: Los Mcnally on 03-19-2022 Lymphocytes/100 WBC (Bld) 34.0 % . [facility] MCH Auto (RBC) [Entitic mass ]Ordered By: Los Mcnally on 03-19-2022 MCH (RBC) [Entitic mass] 29.1 pg 24.7-34.3 [facility] MCHC Auto (RBC) [Mass/Vol]Or dered By: Los Mcnally on 03-19-2022 MCHC (RBC) [Mass/Vol] 32.8 g/dL 32.0-35.0 [facility] MCV Auto (RBC) [Entitic vol] Ordered By: Los Mcnally on 03-19-2022 MCV (RBC) [Entitic vol] 88.6 fL 80-100 [facility] Monocytes Auto (Bld) [#/Vol] Ordered By: Los Mcnally on 03-19-2022 Monocytes (Bld) [#/Vol] 0.5 10*3/uL 0.0-0.8 [facility] Monocytes/100 WBC Auto (Bld) Ordered By: Los Mcnally on 03-19-2022 Monocytes/100 WBC (Bld) 6.9 % . [facility] Neutrophils Auto (Bld) [#/Vo l]Ordered By: Los Mcnally on 03-19-2022 Neutrophils (Bld) [#/Vol] 4.3 10*3/uL 1.8-7.7 [facility] Neutrophils/100 WBC Auto (Bl d)Ordered By: Los Mcnally on 03-19-2022 Neutrophils/100 WBC (Bld) 57.1 % . [facility] No Panel InformationOrdered By: Los Mcnally on 03-19-2022 Estimated GFR () > 60 mL/Min [facility] Comment on above: GFR estimated refere nce range: According to KDOQI guidelines, <60 ml/min/1.73m2 is sufficient to diagnose a patient with chronic kidney disease. Pharmacy Creatinine Clearance (Chem 74.41 [facility] Platelet mean volume Auto (B ld) [Entitic vol]Ordered By: Los Mcnally on 03-19-2022 Platelet mean volume (Bld) [Entitic vol] 8.9 fL 6.3-10.7 [facility] Platelets Auto (Bld) [#/Vol] Ordered By: Los Mcnally on 03-19-2022 Platelets (Bld) [#/Vol] 266 10*3/uL 150-450 [facility] Prolactin [Mass/volume] in S alexis or PlasmaOrdered By: Los Mcnally on 03-19-2022 Prolactin [Mass/Vol] 18.55 ng/mL 3.34-26.72 [facility] Protein [Mass/volume] in Ser um or PlasmaOrdered By: Los Mcnally on 03-19-2022 Protein [Mass/Vol] 8.4 g/dL 6.1-7.9 [facility] RBC Auto (Bld) [#/Vol]Ordere d By: Los Mcnally on 03-19-2022 RBC (Bld) [#/Vol] 4.92 10*6/uL 3.60-5.00 [facility] Serum or plasma alanine white otransferase measurement without P-5'-P (enzymatic activiOrdered By: Los Mcnally on 03-19-2022 ALT No additional P-5'-P [Catalytic activity/Vol] 11 U/L 10-60 [facility] Serum or plasma albumin/glob ulin mass ratioOrdered By: Los Mcnally on 03-19-2022 Albumin/Globulin [Mass ratio] 1.3 {ratio} [facility] Serum or plasma alkaline ignacio sphatase measurement (enzymatic activity/volume)Ordered By: Los Mcnally on 03-19-2022 ALP [Catalytic activity/Vol] 51 U/L 32-92 [facility] Serum or plasma anion gap de terminationOrdered By: Los Mcnally on 03-19-2022 Anion gap [Moles/Vol] 17.7 mmol/L 6.0-15.0 [facility] Serum or plasma aspartate am inotransferase measurement (enzymatic activity/volume)Ordered By: Los Mcnally on 03-19-2022 AST [Catalytic activity/Vol] 22 U/L 10-42 [facility] Serum or plasma calcium randi urement (mass/volume)Ordered By: Los Mcanlly on 03-19-2022 Calcium [Mass/Vol] 9.8 mg/dL 8.2-10.2 [facility] Serum or plasma chloride melonie surement (moles/volume)Ordered By: Los Mcnally on 03-19-2022 Chloride [Moles/Vol] 101 mmol/L 95-114 [facility] Serum or plasma glucose randi urement (mass/volume)Ordered By: Los Mcnally on 03-19-2022 Glucose [Mass/Vol] 83 mg/dL 70-100 [facility] Comment on above: ADA recommended refe rence [...] on 03-19-2022 Potassium [Moles/Vol] 3.7 mmol/L 3.5-5.1 [facility] Serum or plasma sodium measu rement (moles/volume)Ordered By: Los Mcnally on 03-19-2022 Sodium [Moles/Vol] 138 mmol/L 136-146 [facility] Serum or plasma total biliru bin measurement (mass/volume)Ordered By: Los Mcnally on 03-19-2022 Bilirubin [Mass/Vol] 0.7 mg/dL 0.3-1.2 [facility] Serum or plasma total carbon dioxide measurement (moles/volume)Ordered By: Los Mcnally on 03-19-2022 CO2 [Moles/Vol] 23.0 mmol/L 22.0-30.[address] [facility] Serum or plasma urea nitroge n measurement (mass/volume)Ordered By: Los Mcnally on 03-19-2022 Urea nitrogen [Mass/Vol] 8 mg/dL 03-19 [facility] Albumin [Mass/volume] in Ser um or PlasmaOrdered By: Tommy Bowen on 02-25-2022 Albumin [Mass/Vol] 4.1 g/dL 3.2-5.5 [facility] Basophils Auto (Bld) [#/Vol] Ordered By: Tommy Bowen on 02-25-2022 Basophils (Bld) [#/Vol] 0.0 10*3/uL 0.0-0.2 [facility] Basophils/100 WBC Auto (Bld) Ordered By: Tommy Bowen on 02-25-2022 Basophils/100 WBC (Bld) 0.5 % . [facility] Blood hemoglobin measurement (mass/volume)Ordered By: Tommy Bowen on 02-25-2022 Hemoglobin (Bld) [Mass/Vol] 13.4 g/dL 11.8-15.4 [facility] Blood leukocytes automated c ount (number/volume)Ordered By: Tommy Bowen on 02-25-2022 WBC (Bld) [#/Vol] 8.0 10*3/uL 4.5-11.0 [facility] Creatinine and Glomerular fi ltration rate.predicted panel (S/P/Bld)Ordered By: Tommy Bowen on 02-25-2022 Creatinine [Mass/Vol] 0.75 mg/dL 0.44-1.03 [facility] Eosinophils Auto (Bld) [#/Vo l]Ordered By: Tommy Bowen on 02-25-2022 Eosinophils (Bld) [#/Vol] 0.1 10*3/uL 0.0-0.45 [facility] Eosinophils/100 WBC Auto (Bl d)Ordered By: Tommy Bowen on 02-25-2022 Eosinophils/100 WBC (Bld) 0.6 % . [facility] Erythrocyte distribution wid th Auto (RBC) [Ratio]Ordered By: Tommy Bowen on 02-25-2022 Erythrocyte distribution width (RBC) [Ratio] 14.2 % 11.9-15.3 [facility] Estimated glomerular filtrat ion rate (GFR) non- AmericanOrdered By: Tommy Bowen on 02-25-2022 GFR/1.73 sq M.predicted among non-blacks MDRD (S/P/Bld) [Vol rate/Area] > 60 mL/Min [facility] Globulin Calc (S) [Mass/Vol] Ordered By: Tommy Bowen on 02-25-2022 Globulin (S) [Mass/Vol] 3.2 g/dL [facility] Hematocrit Auto (Bld) [Volum e fraction]Ordered By: Tommy Bowen on 02-25-2022 Hematocrit (Bld) [Volume fraction] 41.0 % 34.0-46.4 [facility] Laboratory - Hematology and Cell countsOrdered By: Tommy Bowen on 02-25-2022 Nucleated RBC/100 WBC (Bld) [Ratio] 0.0 % 0-0.5 [facility] Lymphocytes Auto (Bld) [#/Vo l]Ordered By: Tommy Bowen on 02-25-2022 Lymphocytes (Bld) [#/Vol] 2.0 10*3/uL 1.00-4.8 [facility] Lymphocytes/100 WBC Auto (Bl d)Ordered By: Tommy Bowen on 02-25-2022 Lymphocytes/100 WBC (Bld) 25.6 % . [facility] MCH Auto (RBC) [Entitic mass ]Ordered By: Tommy Bowen on 02-25-2022 MCH (RBC) [Entitic mass] 28.7 pg 24.7-34.3 [facility] MCHC Auto (RBC) [Mass/Vol]Or dered By: Tommy Bowen on 02-25-2022 MCHC (RBC) [Mass/Vol] 32.7 g/dL 32.0-35.0 [facility] MCV Auto (RBC) [Entitic vol] Ordered By: Tommy Bowen on 02-25-2022 MCV (RBC) [Entitic vol] 87.8 fL 80-100 [facility] Monocytes Auto (Bld) [#/Vol] Ordered By: Tommy Bowen on 02-25-2022 Monocytes (Bld) [#/Vol] 0.6 10*3/uL 0.0-0.8 [facility] Monocytes/100 WBC Auto (Bld) Ordered By: Tommy Bowen on 02-25-2022 Monocytes/100 WBC (Bld) 7.4 % . [facility] Neutrophils Auto (Bld) [#/Vo l]Ordered By: Tommy Bowen on 02-25-2022 Neutrophils (Bld) [#/Vol] 5.2 10*3/uL 1.8-7.7 [facility] Neutrophils/100 WBC Auto (Bl d)Ordered By: Tommy Bowen on 02-25-2022 Neutrophils/100 WBC (Bld) 65.9 % . [facility] No Panel InformationOrdered By: Tommy Bowen on 02-25-2022 Estimated GFR () > 60 mL/Min [facility] Comment on above: GFR estimated refere nce range: According to KDOQI guidelines, <60 ml/min/1.73m2 is sufficient to diagnose a patient with chronic kidney disease. Pharmacy Creatinine Clearance (Chem 94.82 [facility] Platelet mean volume Auto (B ld) [Entitic vol]Ordered By: Tommy Bowen on 02-25-2022 Platelet mean volume (Bld) [Entitic vol] 8.1 fL 6.3-10.7 [facility] Platelets Auto (Bld) [#/Vol] Ordered By: Tommy Bowen on 02-25-2022 Platelets (Bld) [#/Vol] 260 10*3/uL 150-450 [facility] Protein [Mass/volume] in Ser um or PlasmaOrdered By: Tommy Bowen on 02-25-2022 Protein [Mass/Vol] 7.3 g/dL 6.1-7.9 [facility] RBC Auto (Bld) [#/Vol]Ordere d By: Tommy Bowen on 02-25-2022 RBC (Bld) [#/Vol] 4.67 10*6/uL 3.60-5.00 [facility] Serum or plasma alanine white otransferase measurement without P-5'-P (enzymatic activiOrdered By: Tommy Bowen on 02-25-2022 ALT No additional P-5'-P [Catalytic activity/Vol] 11 U/L 10-60 [facility] Serum or plasma albumin/glob ulin mass ratioOrdered By: Tommy Bowen on 02-25-2022 Albumin/Globulin [Mass ratio] 1.3 {ratio} [facility] Serum or plasma alkaline ignacio sphatase measurement (enzymatic activity/volume)Ordered By: Tommy Bowen on 02-25-2022 ALP [Catalytic activity/Vol] 52 U/L 32-92 [facility] Serum or plasma anion gap de terminationOrdered By: Tommy Bowen on 02-25-2022 Anion gap [Moles/Vol] 13.5 mmol/L 6.0-15.0 [facility] Serum or plasma aspartate am inotransferase measurement (enzymatic activity/volume)Ordered By: Tommy Bowen on 02-25-2022 AST [Catalytic activity/Vol] 18 U/L 10-42 [facility] Serum or plasma calcium randi urement (mass/volume)Ordered By: Tommy Bowen on 02-25-2022 Calcium [Mass/Vol] 9.6 mg/dL 8.2-10.2 [facility] Serum or plasma chloride melonie surement (moles/volume)Ordered By: Tommy Bowen on 02-25-2022 Chloride [Moles/Vol] 101 mmol/L 95-114 [facility] Serum or plasma glucose randi urement (mass/volume)Ordered By: Tommy Bowen on 02-25-2022 Glucose [Mass/Vol] 98 mg/dL 70-100 [facility] Comment on above: ADA recommended refe rence [...] on 02-25-2022 Potassium [Moles/Vol] 4.0 mmol/L 3.5-5.1 [facility] Serum or plasma sodium measu rement (moles/volume)Ordered By: Tommy Bowen on 02-25-2022 Sodium [Moles/Vol] 139 mmol/L 136-146 [facility] Serum or plasma total biliru bin measurement (mass/volume)Ordered By: Tommy Bowen on 02-25-2022 Bilirubin [Mass/Vol] 0.6 mg/dL 0.3-1.2 [facility] Serum or plasma total carbon dioxide measurement (moles/volume)Ordered By: Tommy Bowen on 02-25-2022 CO2 [Moles/Vol] 28.5 mmol/L 22.0-30.[address] [facility] Serum or plasma urea nitroge n measurement (mass/volume)Ordered By: Tommy Bowen on 02-25-2022 Urea nitrogen [Mass/Vol] 7 mg/dL 9- [facility] CBC AUTO DIFFon 01-03-2022 BASO # 0.0 103/ul Normal 0.0-0.1 [facility] Comment on above: Performed By: #### C BC #### [facility] [address] [address] [address] Jovanni Maya Basophils/100 WBC (Bld) 0.2 % Normal 0.2-2.0 [facility] Comment on above: Performed By: #### C BC #### [facility] [address] [address] [address] Jovanni Maya EO # 0.0 103/ul Normal 0.0-0.7 [facility] Comment on above: Performed By: #### C BC #### [facility] [address] [address] [address] Jovanni Maya Eosinophils/100 WBC (Bld) 0.1 % Critically low 0.9-7.0 [facility] Comment on above: Performed By: #### C BC #### [facility] [address] [address] [address] Jovanni Myaa Erythrocyte distribution width (RBC) [Ratio] 12.4 % Normal 11.0-15.0 [facility] Comment on above: Performed By: #### C BC #### [facility] [address] [place] [address] Dr. Jovanni Maya Hematocrit (Bld) [Volume fraction] 39.2 % Normal 36.0-48.0 [facility] Comment on above: Performed By: #### C BC #### [facility] [address] [place] [address] Dr. Jovanni Maya Hemoglobin (Bld) [Mass/Vol] 13.1 g/dL Normal 12.0-16.0 [facility] Comment on above: Performed By: #### C BC #### [facility] [address] [place] [address] Dr. Jovanni Maya IG # 0.05 10e3/ul Critically high 0.00-0.03 [facility] Comment on above: Performed By: #### C BC #### [facility] [address] [place] [address] Dr. Jovanni Maya IG % 0.3 % Normal 0.0-0.5 [facility] Comment on above: Performed By: #### C BC #### [facility] [address] [place] [address] Dr. Jovanni Maya LYMPH # 2.1 103/ul Normal 1.2-3.8 [facility] Comment on above: Performed By: #### C BC #### [facility] [address] [place] [address] Dr. Jovanni Maya Lymphocytes/100 WBC (Bld) 14.3 % Critically low 20.5-60.0 [facility] Comment on above: Performed By: #### C BC #### [facility] [address] [place] [address] Dr. Jovanni Maya MANUAL DIFF REQ NO Normal [facility] Comment on above: Performed By: #### C BC #### [facility] [address] [place] [address] Dr. Jovanni aMya MCH (RBC) [Entitic mass] 29.4 pg Normal 26.7-34.0 [facility] Comment on above: Performed By: #### C BC #### [facility] [address] [place] [address] Dr. Jovanni Maya MCHC (RBC) [Mass/Vol] 33.4 g/dL Normal 29.9-35.2 [facility] Comment on above: Performed By: #### C BC #### [facility] [address] [place] [address] Dr. Jovanni Maya MCV (RBC) [Entitic vol] 87.9 fL Normal 81.0-99.0 [facility] Comment on above: Performed By: #### C BC #### [facility] [address] [place] [address] Dr. Jovanni Maya MONO # 1.3 103/ul Critically high 0.3-0.8 [facility] Comment on above: Performed By: #### C BC #### [facility] [address] [place] [address] Dr. Jovanni Maya Monocytes/100 WBC (Bld) 8.4 % Normal 1.7-12.0 [facility] Comment on above: Performed By: #### C BC #### [facility] [address] [place] [address] Dr. Jovanni Maya NEUT # 11.4 103/ul Critically high 1.4-6.5 [facility] Comment on above: Performed By: #### C BC #### [facility] [address] [place] [address] Dr. Jovanni Maya Neutrophils/100 WBC (Bld) 76.7 % Critically high 43.0-75.0 [facility] Comment on above: Performed By: #### C BC #### [facility] [address] [place] [address] Dr. Jovanni Maya Platelet mean volume (Bld) [Entitic vol] 9.4 fL Critically low 9.5-13.5 [facility] Comment on above: Performed By: #### C BC #### [facility] [address] [place] [address] Dr. Jovanni Maya PLT 276 103/ul Normal 150-450 [facility] Comment on above: Performed By: #### C BC #### [facility] [address] [place] [address] Dr. Jovanni Maya RBC 4.46 106/ul Normal 4.20-5.40 [facility] Comment on above: Performed By: #### C BC #### [facility] [address] [place] [address] Dr. Jovanni Maya WBC 14.9 103/ul Critically high 4.0-11.0 [facility] Comment on above: Performed By: #### C BC #### [facility] [address] [place] [address] Dr. Jovanni Maya PROF CHEM 8 (BAS METB)on Anion gap [Moles/Vol] 14.2 mmol/L Normal [facility] Comment on above: Performed By: #### P REG, ACETON #### [facility] [address] [place] [address] Dr. Jovanni Maya Calcium [Mass/Vol] 9.3 mg/dL Normal 8.5-10.1 [facility] Comment on above: Performed By: #### P REG, ACETON #### [facility] [address] [place] [address] Dr. Jovanni Maya Chloride [Moles/Vol] 103 mmol/L Normal 98-107 [facility] Comment on above: Performed By: #### P REG, ACETON #### [facility] [address] [place] [address] Dr. Jovanni Maya CO2 [Moles/Vol] 26.6 mmol/L Normal 21.0-32.0 [facility] Comment on above: Performed By: #### P REG, ACETON #### [facility] [address] [place] [address] Dr. Jovanni Maya Creatinine [Mass/Vol] 0.80 mg/dL Normal 0.55-1.02 [facility] Comment on above: Performed By: #### P REG, ACETON #### [facility] [address] [place] [address] Dr. Jovanni Maya EGFR-AF LUXEMBOURGER >60 Normal >=60 [facility] Comment on above: Performed By: #### P REG, ACETON #### [facility] [address] [place] [address] Dr. Jovanni Maya EGFR-NON AF LUXEMBOURGER >60 Normal >=60 [facility] Comment on above: Performed By: #### P REG, ACETON #### [facility] [address] [place] [address] Dr. Jovanni Maya Glucose [Mass/Vol] 118 mg/dL Critically high 74-106 [facility] Comment on above: Performed By: #### P REG, ACETON #### [facility] [address] [place] [address] Dr. Jovanni Maya Potassium [Moles/Vol] 3.8 mmol/L Normal 3.5-5.1 [facility] Comment on above: Performed By: #### P REG, ACETON #### [facility] [address] [place] [address] Dr. Jovanni Maya Sodium [Moles/Vol] 140 mmol/L Normal 136-145 [facility] Comment on above: Performed By: #### P REG, ACETON #### [facility] [address] [place] [address] Dr. Jovanni Maya Urea nitrogen [Mass/Vol] 12.0 mg/dL Normal 7.0-18.0 [facility] Comment on above: Performed By: #### P REG, ACETON #### [facility] [address] [place] [address] Dr. Jovanni Maya Urea nitrogen/Creatinine [Mass ratio] 15.0 mg/mg Normal [facility] Comment on above: Performed By: #### P REG, ACETON #### [facility] [address] [place] [address] Dr. Jovanni Maya XR CHEST 2 Von [...] FRED COLE Date: 2022-01-03 01:30 Normal [facility] CBC AUTO DIFFon 11-29-2021 BASO # 0.0 103/ul Normal 0.0-0.1 [facility] Comment on above: Performed By: #### C MP, HSTROPN #### [facility] [address] [address] [address] Jovanni Maya Basophils/100 WBC (Bld) 0.2 % Normal 0.2-2.0 [facility] Comment on above: Performed By: #### C MP, HSTROPN #### [facility] [address] [place] [address] Dr. Jovanni Maya EO # 0.2 103/ul Normal 0.0-0.7 [facility] Comment on above: Performed By: #### C MP, HSTROPN #### [facility] [address] [address] [address] Jovanni Maya Eosinophils/100 WBC (Bld) 3.2 % Normal 0.9-7.0 [facility] Comment on above: Performed By: #### C MP, HSTROPN #### [facility] [address] [address] [address] Jovanni Maya Erythrocyte distribution width (RBC) [Ratio] 12.2 % Normal 11.0-15.0 [facility] Comment on above: Performed By: #### C MP, HSTROPN #### [facility] [address] [address] [address] Jovanni Maya Hematocrit (Bld) [Volume fraction] 34.3 % Critically low 36.0-48.0 [facility] Comment on above: Performed By: #### C MP, HSTROPN #### [facility] [address] [place] [address] Dr. Jovanni Maya Hemoglobin (Bld) [Mass/Vol] 11.4 g/dL Critically low 12.0-16.0 [facility] Comment on above: Performed By: #### C DANIEL, HSTROPN #### [facility] [address] [place] [address] Dr. Jovanni Maya IG # 0.01 10e3/ul Normal 0.00-0.03 [facility] Comment on above: Performed By: #### C MP, HSTROPN #### [facility] [address] [place] [address] Dr. Jovanni Maya IG % 0.2 % Normal 0.0-0.5 [facility] Comment on above: Performed By: #### C DANIEL, HSTROPN #### [facility] [address] [place] [address] Dr. Jovanni Maya LYMPH # 2.5 103/ul Normal 1.2-3.8 [facility] Comment on above: Performed By: #### C DANIEL, HSTROPN #### [facility] [address] [place] [address] Dr. Jovanni Maya Lymphocytes/100 WBC (Bld) 38.1 % Normal 20.5-60.0 [facility] Comment on above: Performed By: #### C DANIEL, HSTROPN #### [facility] [address] [place] [address] Dr. Jovanni Maya MANUAL DIFF REQ NO Normal [facility] Comment on above: Performed By: #### C DANIEL, HSTROPN #### [facility] [address] [place] [address] Dr. Jovanni Maya MCH (RBC) [Entitic mass] 29.6 pg Normal 26.7-34.0 [facility] Comment on above: Performed By: #### C MP, HSTROPN #### [facility] [address] [place] [address] Dr. Jovanni Maya MCHC (RBC) [Mass/Vol] 33.2 g/dL Normal 29.9-35.2 [facility] Comment on above: Performed By: #### C MP, HSTROPN #### [facility] [address] [place] [address] Dr. Jovanni Maya MCV (RBC) [Entitic vol] 89.1 fL Normal 81.0-99.0 [facility] Comment on above: Performed By: #### C MP, HSTROPN #### [facility] [address] [place] [address] Dr. Jovanni Maya MONO # 0.7 103/ul Normal 0.3-0.8 [facility] Comment on above: Performed By: #### C MP, HSTROPN #### [facility] [address] [place] [address] Dr. Jovanni Maya Monocytes/100 WBC (Bld) 10.2 % Normal 1.7-12.0 [facility] Comment on above: Performed By: #### C MP, HSTROPN #### [facility] [address] [place] [address] Dr. Jovanni Maya NEUT # 3.2 103/ul Normal 1.4-6.5 [facility] Comment on above: Performed By: #### C MP, HSTROPN #### [facility] [address] [place] [address] Dr. Jovanni Maya Neutrophils/100 WBC (Bld) 48.1 % Normal 43.0-75.0 [facility] Comment on above: Performed By: #### C MP, HSTROPN #### [facility] [address] [place] [address] Dr. Jovanni Maya Platelet mean volume (Bld) [Entitic vol] 9.8 fL Normal 9.5-13.5 [facility] Comment on above: Performed By: #### C MP, HSTROPN #### [facility] [address] [place] [address] Dr. Jovanni Maya PLT 222 103/ul Normal 150-450 [facility] Comment on above: Performed By: #### C MP, HSTROPN #### [facility] [address] [place] [address] Dr. Jovanni Maya RBC 3.85 106/ul Critically low 4.20-5.40 [facility] Comment on above: Performed By: #### C MP, HSTROPN #### [facility] [address] [address] [address] Jovanni Maya WBC 6.5 103/ul Normal 4.0-11.0 [facility] Comment on above: Performed By: #### C MP, HSTROPN #### [facility] [address] [place] [address] Dr. Jovanni Maya CULTURE URINEon 11-29-2021 CULTURE URINE Culture Observations : LIGHT GROWTH OF MIXED GENITAL ZANDER. NO POTENTIAL PATHOGENS SEEN. Normal [facility] Comment on above: Performed By: #### C MP, HSTROPN #### [facility] [address] [place] [address] Dr. Jovanni Maya DRUG SCREEN RAPID (URINE)on 11-29-2021 AMP Negative Normal NEGATIVE [facility] Comment on above: Performed By: #### P REG, ACETON #### [facility] [address] [place] [address] Dr. Jovanni Maya BAR Negative Normal NEGATIVE [facility] Comment on above: Performed By: #### P REG, ACETON #### [facility] [address] [place] [address] Dr. Jovanni Maya BUP Negative Normal NEGATIVE [facility] Comment on above: Performed By: #### P REG, ACETON #### [facility] [address] [place] [address] Dr. Jovanni Maya BZO Positive Abnormal NEGATIVE [facility] Comment on above: Performed By: #### P REG, ACETON #### [facility] [address] [place] [address] Dr. Jovanni Maya DARIEN Negative Normal NEGATIVE [facility] Comment on above: Performed By: #### P REG, ACETON #### [facility] [address] [place] [address] Dr. Jovanni Maya CUT-OFFS SEE BELOW Normal [facility] Comment on above: Result Comment: AMP [...] Performed By: #### P REG, ACETON #### [facility] [address] [place] [address] Dr. Jovanni Maya DRUG CUT HEADER DRUG CLASS TEST SYST EM CUT-OFF CONCENTRATIONS ARE FOLLOWS: Normal [facility] Comment on above: Performed By: #### P REG, ACETON #### [facility] [address] [place] [address] Dr. Jovanni Maya mAMP Negative Normal NEGATIVE [facility] Comment on above: Performed By: #### P REG, ACETON #### [facility] [address] [place] [address] Dr. Jovanni Maya MTD Negative Normal NEGATIVE [facility] Comment on above: Performed By: #### P REG, ACETON #### [facility] [address] [place] [address] Dr. Jovanni Maya OPI Negative Normal NEGATIVE [facility] Comment on above: Performed By: #### P REG, ACETON #### [facility] [address] [place] [address] Dr. Jovanni Maya OXY Positive Abnormal NEGATIVE [facility] Comment on above: Performed By: #### P REG, ACETON #### [facility] [address] [place] [address] Dr. Jovanni Maya PCP Negative Normal NEGATIVE [facility] Comment on above: Performed By: #### P REG, ACETON #### [facility] [address] [place] [address] Dr. Jovanni Maya PPX Negative Normal NEGATIVE [facility] Comment on above: Performed By: #### P REG, ACETON #### [facility] [address] [address] [address] Jovanni Maya TCA Negative Normal NEGATIVE [facility] Comment on above: Performed By: #### P REG, ACETON #### [facility] [address] [place] [address] Dr. Jovanni Maya THC Positive Abnormal NEGATIVE [facility] Comment on above: Performed By: #### P REG, ACETON #### [facility] [address] [place] [address] Dr. Jovanni Maya ER URINE PROFILEon 2 Bilirubin Ql (U) SMALL Abnormal NEGATIVE [facility] Comment on above: Performed By: #### P REG, ACETON #### [facility] [address] [place] [address] Dr. Jovanni Maya Clarity (U) CLEAR Normal CLEAR [facility] Comment on above: Performed By: #### P REG, ACETON #### [facility] [address] [place] [address] Dr. Jovanni Maya Color (U) BROWN Abnormal YELLOW [facility] Comment on above: Performed By: #### P REG, ACETON #### [facility] [address] [place] [address] Dr. Jovanni Maya ERUAHD A micrscopic examina tion will be performed if indicated. Normal [facility] Comment on above: Performed By: #### P REG, ACETON #### [facility] [address] [place] [address] Dr. Jovanni Maya Glucose Ql (U) Negative Normal NEGATIVE [facility] Comment on above: Performed By: #### P REG, ACETON #### [facility] [address] [place] [address] Dr. Jovanni Maya Hemoglobin Ql (U) LARGE Abnormal NEGATIVE [facility] Comment on above: Performed By: #### P REG, ACETON #### [facility] [address] [place] [address] Dr. Jovanni Maya Ketones Ql (U) Negative Normal NEGATIVE [facility] Comment on above: Performed By: #### P REG, ACETON #### [facility] [address] [place] [address] Dr. Jovanni Maya LEUKOCYTES MODERATE Abnormal NEGATIVE [facility] Comment on above: Performed By: #### P REG, ACETON #### [facility] [address] [place] [address] Dr. Jovanni Maya Nitrite Ql (U) Negative Normal NEGATIVE [facility] Comment on above: Performed By: #### P REG, ACETON #### [facility] [address] [place] [address] Dr. Jovanni Maya pH (U) 6.0 [pH] Normal 5-9 [facility] Comment on above: Performed By: #### P REG, ACETON #### [facility] [address] [place] [address] Dr. Jovanni Maya Protein (U) [Mass/Vol] 100 mg/dL Abnormal NEGAT JOSEPH/ TRACE [facility] Comment on above: Performed By: #### P REG, ACETON #### [facility] [address] [place] [address] Dr. Jovanni Maya SPEC GRAVITY 1.025 Normal 1.005-<=1. 025 [facility] Comment on above: Performed By: #### P REG, ACETON #### [facility] [address] [place] [address] Dr. Jovanni Maya UR MICRO IND INDICATED Normal [facility] Comment on above: Performed By: #### P REG, ACETON #### [facility] [address] [place] [address] Dr. Jovanni Maya Urobilinogen Qn (U) 1.0 {Carlos A'U}/dL Normal 0.2 - 1. 0 [facility] Comment on above: Performed By: #### P REG, ACETON #### [facility] [address] [place] [address] Dr. Jovanni Maya LACTATE/LACTIC ACIDon 2021 Lactate [Moles/Vol] 1.2 mmol/L Normal 0.4-1.9 [facility] Comment on above: Performed By: #### L ACT #### [facility] [address] [place] [address] Dr. Jovanni Maya URon 11-29-2021 , QUAL Negative Normal NEGATIVE [facility] Comment on above: Performed By: #### P REG, ACETON #### [facility] [address] [address] [address] Jovanni Maya PROF CHEM 8 (BAS METB)on Anion gap [Moles/Vol] 11.0 mmol/L Normal [facility] Comment on above: Performed By: #### C MP, HSTROPN #### [facility] [address] [place] [address] Dr. Jovanni Maya Calcium [Mass/Vol] 8.7 mg/dL Normal 8.5-10.1 [facility] Comment on above: Performed By: #### C MP, HSTROPN #### [facility] [address] [place] [address] Dr. Jovanni Maya Chloride [Moles/Vol] 105 mmol/L Normal 98-107 [facility] Comment on above: Performed By: #### C MP, HSTROPN #### [facility] [address] [place] [address] Dr. Jovanni Maya CO2 [Moles/Vol] 27.5 mmol/L Normal 21.0-32.0 [facility] Comment on above: Performed By: #### C MP, HSTROPN #### [facility] [address] [place] [address] Dr. Jovanni Maya Creatinine [Mass/Vol] 0.84 mg/dL Normal 0.55-1.02 [facility] Comment on above: Performed By: #### C MP, HSTROPN #### [facility] [address] [place] [address] Dr. Jovanni Maya EGFR-AF LUXEMBOURGER >60 Normal >=60 [facility] Comment on above: Performed By: #### C MP, HSTROPN #### [facility] [address] [address] [address] Jovanni Maya EGFR-NON AF LUXEMBOURGER >60 Normal >=60 [facility] Comment on above: Performed By: #### C MP, HSTROPN #### [facility] [address] [address] [address] Jovanni Maya Glucose [Mass/Vol] 103 mg/dL Normal 74-106 [facility] Comment on above: Performed By: #### C MP, HSTROPN #### [facility] [address] [place] [address] Dr. Jovanni Maya Potassium [Moles/Vol] 3.5 mmol/L Normal 3.5-5.1 [facility] Comment on above: Performed By: #### C MP, HSTROPN #### [facility] [address] [place] [address] Dr. Jovanni Maya Sodium [Moles/Vol] 140 mmol/L Normal 136-145 [facility] Comment on above: Performed By: #### C MP, HSTROPN #### [facility] [address] [place] [address] Dr. Jovanni Maya Urea nitrogen [Mass/Vol] 12.0 mg/dL Normal 7.0-18.0 [facility] Comment on above: Performed By: #### C MP, HSTROPN #### [facility] [address] [place] [address] Dr. Jovanni Maya Urea nitrogen/Creatinine [Mass ratio] 14.3 mg/mg Normal [facility] Comment on above: Performed By: #### C MP, HSTROPN #### [facility] [address] [place] [address] Dr. Jovanni Maya URINE MICROSCOPIC ONLYon BACTERIA TRACE Abnormal NONE SEEN [facility] Comment on above: Performed By: #### P REG, ACETON #### [facility] [address] [place] [address] Dr. Jovanni Maya Bacteria identified Cx Nom (U) INDICATED Normal [facility] Comment on above: Performed By: #### P REG, ACETON #### [facility] [address] [place] [address] Dr. Jovanni Maya CA OX CRYSTALS RARE Normal [facility] Comment on above: Performed By: #### P REG, ACETON #### [facility] [address] [place] [address] Dr. Jovanni Maya CAST SEEN Abnormal NONE SEEN [facility] Comment on above: Performed By: #### P REG, ACETON #### [facility] [address] [place] [address] Dr. Jovanni Maya Crystals LM Nom (Urine sed) SEEN Abnormal NONE SEEN [facility] Comment on above: Performed By: #### P REG, ACETON #### [facility] [address] [place] [address] Dr. Jovanni Maya Epithelial cells LM Ql (Urine sed) FEW Abnormal NONE SEEN /RARE [facility] Comment on above: Performed By: #### P REG, ACETON #### [facility] [address] [place] [address] Dr. Jovanni Maya HYALINE CAST RARE Normal [facility] Comment on above: Performed By: #### P REG, ACETON #### [facility] [address] [place] [address] Dr. Jovanni Maya MUCOUS SMALL Abnormal NONE SEEN [facility] Comment on above: Performed By: #### P REG, ACETON #### [facility] [address] [place] [address] Dr. Jovanni Maya RBC 20-50 Abnormal 0-2 [facility] Comment on above: Performed By: #### P REG, ACETON #### [facility] [address] [place] [address] Dr. Jovanni Maya WBC 5-10 Abnormal NONE SEEN [facility] Comment on above: Performed By: #### P REG, ACETON #### [facility] [address] [place] [address] Dr. Jovanni Maya CBC AUTO DIFFon 10-16-2021 BASO # 0.0 103/ul Normal 0.0-0.1 [facility] Comment on above: Performed By: #### P REG, ACETON #### [facility] [address] [place] [address] Dr. Jovanni Maya Basophils/100 WBC (Bld) 0.2 % Normal 0.2-2.0 [facility] Comment on above: Performed By: #### P REG, ACETON #### [facility] [address] [place] [address] Dr. Jovanni Maya EO # 0.1 103/ul Normal 0.0-0.7 [facility] Comment on above: Performed By: #### P REG, ACETON #### [facility] [address] [place] [address] Dr. Jovanni Maya Eosinophils/100 WBC (Bld) 0.8 % Critically low 0.9-7.0 [facility] Comment on above: Performed By: #### P REG, ACETON #### [facility] [address] [place] [address] Dr. Jovanni Maya Erythrocyte distribution width (RBC) [Ratio] 12.2 % Normal 11.0-15.0 [facility] Comment on above: Performed By: #### P REG, ACETON #### [facility] [address] [place] [address] Dr. Jovanni Maya Hematocrit (Bld) [Volume fraction] 42.4 % Normal 36.0-48.0 [facility] Comment on above: Performed By: #### P REG, ACETON #### [facility] [address] [place] [address] Dr. Jovanni Maya Hemoglobin (Bld) [Mass/Vol] 14.5 g/dL Normal 12.0-16.0 [facility] Comment on above: Performed By: #### P REG, ACETON #### [facility] [address] [place] [address] Dr. Jovanni Maya IG # 0.04 10e3/ul Critically high 0.00-0.03 [facility] Comment on above: Performed By: #### P REG, ACETON #### [facility] [address] [place] [address] Dr. Jovanni Maya IG % 0.5 % Normal 0.0-0.5 [facility] Comment on above: Performed By: #### P REG, ACETON #### [facility] [address] [place] [address] Dr. Jovanni Maya LYMPH # 2.8 103/ul Normal 1.2-3.8 [facility] Comment on above: Performed By: #### P REG, ACETON #### [facility] [address] [place] [address] Dr. Jovanni Maya Lymphocytes/100 WBC (Bld) 31.8 % Normal 20.5-60.0 [facility] Comment on above: Performed By: #### P REG, ACETON #### [facility] [address] [place] [address] Dr. Jovanni Maya MANUAL DIFF REQ NO Normal [facility] Comment on above: Performed By: #### P REG, ACETON #### [facility] [address] [place] [address] Dr. Jovanni Maya MCH (RBC) [Entitic mass] 29.8 pg Normal 26.7-34.0 [facility] Comment on above: Performed By: #### P REG, ACETON #### [facility] [address] [place] [address] Dr. Jovanni Maya MCHC (RBC) [Mass/Vol] 34.2 g/dL Normal 29.9-35.2 [facility] Comment on above: Performed By: #### P REG, ACETON #### [facility] [address] [place] [address] Dr. Jovanni Maya MCV (RBC) [Entitic vol] 87.1 fL Normal 81.0-99.0 [facility] Comment on above: Performed By: #### P REG, ACETON #### [facility] [address] [place] [address] Dr. Jovanni Maya MONO # 0.6 103/ul Normal 0.3-0.8 [facility] Comment on above: Performed By: #### P REG, ACETON #### [facility] [address] [place] [address] Dr. Jovanni Maya Monocytes/100 WBC (Bld) 7.1 % Normal 1.7-12.0 [facility] Comment on above: Performed By: #### P REG, ACETON #### [facility] [address] [place] [address] Dr. Jovanni Maya NEUT # 5.2 103/ul Normal 1.4-6.5 [facility] Comment on above: Performed By: #### P REG, ACETON #### [facility] [address] [place] [address] Dr. Jovanni Maya Neutrophils/100 WBC (Bld) 59.6 % Normal 43.0-75.0 [facility] Comment on above: Performed By: #### P REG, ACETON #### [facility] [address] [place] [address] Dr. Jovanni Maya Platelet mean volume (Bld) [Entitic vol] 9.2 fL Critically low 9.5-13.5 [facility] Comment on above: Performed By: #### P REG, ACETON #### [facility] [address] [place] [address] Dr. Jovanni Maya PLT 301 103/ul Normal 150-450 [facility] Comment on above: Performed By: #### P REG, ACETON #### [facility] [address] [place] [address] Dr. Jovanni Maay RBC 4.87 106/ul Normal 4.20-5.40 [facility] Comment on above: Performed By: #### P REG, ACETON #### [facility] [address] [place] [address] Dr. Jovanni Maya WBC 8.7 103/ul Normal 4.0-11.0 [facility] Comment on above: Performed By: #### P REG, ACETON #### [facility] [address] [place] [address] Dr. Jovanni Maya CULTURE URINEon 10-16-2021 CULTURE URINE Culture Observations : LIGHT GROWTH OF MIXED GENITAL ZANDER. NO POTENTIAL PATHOGENS SEEN. Normal [facility] Comment on above: Performed By: #### C MP, HSTROPN #### [facility] [address] [place] [address] Dr. Jovanni Maya ER URINE PROFILEon 2 Bilirubin Ql (U) Negative Normal NEGATIVE [facility] Comment on above: Performed By: #### P REG, ACETON #### [facility] [address] [place] [address] Dr. Jovanni Maya Clarity (U) CLEAR Normal CLEAR [facility] Comment on above: Performed By: #### P REG, ACETON #### [facility] [address] [place] [address] Dr. Jovanni Maya Color (U) LT. YELLOW Normal YELLOW [facility] Comment on above: Performed By: #### P REG, ACETON #### [facility] [address] [place] [address] Dr. Jovanni Maya ERUAHD A micrscopic examina tion will be performed if indicated. Normal [facility] Comment on above: Performed By: #### P REG, ACETON #### [facility] [address] [place] [address] Dr. Jovanni Maya Glucose Ql (U) Negative Normal NEGATIVE [facility] Comment on above: Performed By: #### P REG, ACETON #### [facility] [address] [place] [address] Dr. Jovanni Maya Hemoglobin Ql (U) LARGE Abnormal NEGATIVE [facility] Comment on above: Performed By: #### P REG, ACETON #### [facility] [address] [place] [address] Dr. Jovanni Maya Ketones Ql (U) TRACE Abnormal NEGATIVE [facility] Comment on above: Performed By: #### P REG, ACETON #### [facility] [address] [place] [address] Dr. Jovanni Maya LEUKOCYTES MODERATE Abnormal NEGATIVE [facility] Comment on above: Performed By: #### P REG, ACETON #### [facility] [address] [place] [address] Dr. Jovanni Maya Nitrite Ql (U) Negative Normal NEGATIVE [facility] Comment on above: Performed By: #### P REG, ACETON #### [facility] [address] [place] [address] Dr. Jovanni Maya pH (U) [pH] Abnormal 5-9 [facility] Comment on above: Performed By: #### P REG, ACETON #### [facility] [address] [place] [address] Dr. Jovanni Maya Protein (U) [Mass/Vol] 100 mg/dL Abnormal NEGAT JOSEPH/ TRACE [facility] Comment on above: Performed By: #### P REG, ACETON #### [facility] [address] [place] [address] Dr. Jovanni Maya SPEC GRAVITY 1.015 Normal 1.005-<=1. 025 [facility] Comment on above: Performed By: #### P REG, ACETON #### [facility] [address] [place] [address] Dr. Jovanni Maya UR MICRO IND INDICATED Normal [facility] Comment on above: Performed By: #### P REG, ACETON #### [facility] [address] [place] [address] Dr. Jovanni Maya Urobilinogen Qn (U) 1.0 {Carlos A'U}/dL Normal 0.2 - 1. 0 [facility] Comment on above: Performed By: #### P REG, ACETON #### [facility] [address] [place] [address] Dr. Jovanni Maya LIPASEon 10-16-2021 Lipase [Catalytic activity/Vol] 85.0 U/L Normal 23.0-300.0 [facility] Comment on above: Performed By: #### P REG, ACETON #### [facility] [address] [place] [address] Dr. Jovanni Maya URon 10-16-2021 , QUAL Negative Normal NEGATIVE [facility] Comment on above: Performed By: #### P REG, ACETON #### [facility] [address] [place] [address] Dr. Jovanni Maya PROF 14(COMP METB)on 022 Albumin [Mass/Vol] 4.4 g/dL Normal 3.4-5.0 [facility] Comment on above: Performed By: #### P REG, ACETON #### [facility] [address] [place] [address] Dr. Jovanni Maya Albumin/Globulin [Mass ratio] 1.2 {ratio} Normal [facility] Comment on above: Performed By: #### P REG, ACETON #### [facility] [address] [place] [address] Dr. Jovanni Maya ALP [Catalytic activity/Vol] 66 U/L Normal 46-116 [facility] Comment on above: Performed By: #### P REG, ACETON #### [facility] [address] [place] [address] Dr. Jovanni Maya ALT [Catalytic activity/Vol] 13 U/L Critically low 14-59 [facility] Comment on above: Performed By: #### P REG, ACETON #### [facility] [address] [place] [address] Dr. Jovanni Maya Anion gap [Moles/Vol] 11.4 mmol/L Normal [facility] Comment on above: Performed By: #### P REG, ACETON #### [facility] [address] [place] [address] Dr. Jovanni Maya AST [Catalytic activity/Vol] 13 U/L Critically low 15-37 [facility] Comment on above: Performed By: #### P REG, ACETON #### [facility] [address] [place] [address] Dr. Jovanni Maya Bilirubin [Mass/Vol] 0.6 mg/dL Normal 0.2-1.3 [facility] Comment on above: Performed By: #### P REG, ACETON #### [facility] [address] [place] [address] Dr. Jovanni Maya Calcium [Mass/Vol] 8.7 mg/dL Normal 8.5-10.1 [facility] Comment on above: Performed By: #### P REG, ACETON #### [facility] [address] [place] [address] Dr. Jovanni Maya Chloride [Moles/Vol] 101 mmol/L Normal 98-107 [facility] Comment on above: Performed By: #### P REG, ACETON #### [facility] [address] [place] [address] Dr. Jovanni Maya CO2 [Moles/Vol] 27.5 mmol/L Normal 22.0-30.0 [facility] Comment on above: Performed By: #### P REG, ACETON #### [facility] [address] [place] [address] Dr. Jovanni Maya Creatinine [Mass/Vol] 0.80 mg/dL Normal 0.55-1.02 [facility] Comment on above: Performed By: #### P REG, ACETON #### [facility] [address] [address] [address] Jovanni Maya EGFR-AF LUXEMBOURGER >60 Normal >=60 [facility] Comment on above: Performed By: #### P REG, ACETON #### [facility] Laboratory [address] [place] [address] Dr. Jovanni Maya EGFR-NON AF LUXEMBOURGER >60 Normal >=60 [facility] Comment on above: Performed By: #### P REG, ACETON #### [facility] [address] [place] [address] Dr. Jovanni Maya Globulin (S) [Mass/Vol] 3.7 g/dL Normal [facility] Comment on above: Performed By: #### P REG, ACETON #### [facility] [address] [place] [address] Dr. Jovanni Maya Glucose [Mass/Vol] 90 mg/dL Normal 74-106 [facility] Comment on above: Performed By: #### P REG, ACETON #### [facility] [address] [place] [address] Dr. Jovanni Maya Potassium [Moles/Vol] 3.9 mmol/L Normal 3.4-5.0 [facility] Comment on above: Performed By: #### P REG, ACETON #### [facility] [address] [place] [address] Dr. Jovanni Maya Protein [Mass/Vol] 8.1 g/dL Normal 6.1-8.2 [facility] Comment on above: Performed By: #### P REG, ACETON #### [facility] [address] [place] [address] Dr. Jovanni Maya Sodium [Moles/Vol] 136 mmol/L Critically low 137-145 [facility] Comment on above: Performed By: #### P REG, ACETON #### [facility] [address] [place] [address] Dr. Jovanni Maya Urea nitrogen [Mass/Vol] 10.0 mg/dL Normal 7.0-18.0 [facility] Comment on above: Performed By: #### P REG, ACETON #### [facility] [address] [place] [address] Dr. Jovanni Maya Urea nitrogen/Creatinine [Mass ratio] 12.5 mg/mg Normal [facility] Comment on above: Performed By: #### P REG, ACETON #### [facility] [address] [place] [address] Dr. Jovanni Maya URINE MICROSCOPIC ONLYon BACTERIA MODERATE Abnormal NONE SEEN [facility] Comment on above: Performed By: #### P REG, ACETON #### [facility] [address] [place] [address] Dr. Jovanni Maya Bacteria identified Cx Nom (U) INDICATED Normal [facility] Comment on above: Performed By: #### P REG, ACETON #### [facility] [address] [place] [address] Dr. Jovanni Maya CA OX CRYSTALS RARE Normal [facility] Comment on above: Performed By: #### P REG, ACETON #### [facility] [address] [place] [address] Dr. Jovanni Maya CAST NONE SEEN Normal NONE SEEN [facility] Comment on above: Performed By: #### P REG, ACETON #### [facility] [address] [place] [address] Dr. Jovanni Maya Crystals LM Nom (Urine sed) SEEN Abnormal NONE SEEN [facility] Comment on above: Performed By: #### P REG, ACETON #### [facility] [address] [place] [address] Dr. Jovanni Maya Epithelial cells LM Ql (Urine sed) MODERATE Abnormal NONE SEEN /RARE [facility] Comment on above: Performed By: #### P REG, ACETON #### [facility] [address] [address] [address] Jovanni Maya MUCOUS NONE SEEN Normal NONE SEEN [facility] Comment on above: Performed By: #### P REG, ACETON #### [facility] [address] [address] [address] Jovanni Maya RBC 50-75 Abnormal 0-2 [facility] Comment on above: Performed By: #### P REG, ACETON #### [facility] [address] [address] [address] Jovanni Maya WBC 10-20 Abnormal NONE SEEN [facility] Comment on above: Performed By: #### P REG, ACETON #### [facility] [address] [place] [address] Dr. Jovanni Maya XR KUB 1 VIEWon [...] COSMO ALONSO Date: 2021-10-16 19:18 Normal [facility] Activated partial thrombopla stin time (aPTT) in platelet poor plasma by coagulation aOrdered By: Roberto Whittaker on 09-28-2021 aPTT Coag (PPP) [Time] 34.9 s 25.1-36.5 [facility] Albumin [Mass/volume] in Ser um or PlasmaOrdered By: Roberto Whittaker on 09-28-2021 Albumin [Mass/Vol] 4.3 g/dL 3.2-5.5 [facility] Basophils Auto (Bld) [#/Vol] Ordered By: Roberto Whittaker on 09-28-2021 Basophils (Bld) [#/Vol] 0.0 10*3/uL 0.0-0.2 [facility] Basophils/100 WBC Auto (Bld) Ordered By: Roberto Whittaker on 09-28-2021 Basophils/100 WBC (Bld) 0.7 % [facility] Blood hemoglobin measurement (mass/volume)Ordered By: Roberto Whittaker on 09-28-2021 Hemoglobin (Bld) [Mass/Vol] 14.7 g/dL 11.8-15.4 [facility] Blood leukocytes automated c ount (number/volume)Ordered By: Roberto Whittaker on 09-28-2021 WBC (Bld) [#/Vol] 6.2 10*3/uL 4.5-11.0 [facility] Creatinine and Glomerular fi ltration rate.predicted panel (S/P/Bld)Ordered By: Roberto Whittaker on 09-28-2021 Creatinine [Mass/Vol] 0.73 mg/dL 0.44-1.03 [facility] Direct bilirubin measurement Ordered By: Roberto Whittaker on 09-28-2021 Bilirubin.direct [Mass/Vol] mg/dL 0.0-0.4 [facility] Eosinophils Auto (Bld) [#/Vo l]Ordered By: Roberto Whittaker on 09-28-2021 Eosinophils (Bld) [#/Vol] 0.1 10*3/uL 0.0-0.45 [facility] Eosinophils/100 WBC Auto (Bl d)Ordered By: Roberto Whittaker on 09-28-2021 Eosinophils/100 WBC (Bld) 1.8 % [facility] Erythrocyte distribution wid th Auto (RBC) [Ratio]Ordered By: Roberto Whittaker on 09-28-2021 Erythrocyte distribution width (RBC) [Ratio] 13.1 % 11.9-15.3 [facility] Estimated glomerular filtrat ion rate (GFR) non- AmericanOrdered By: Roberto Whittaker on 09-28-2021 GFR/1.73 sq M.predicted among non-blacks MDRD (S/P/Bld) [Vol rate/Area] > 60 mL/Min [facility] Globulin Calc (S) [Mass/Vol] Ordered By: Roberto Whittaker on 09-28-2021 Globulin (S) [Mass/Vol] 3.2 g/dL [facility] Hematocrit Auto (Bld) [Volum e fraction]Ordered By: Roberto Whittaker on 09-28-2021 Hematocrit (Bld) [Volume fraction] 44.2 % 34.0-46.4 [facility] Laboratory - Chemistry and C hemistry - challengeOrdered By: Roberto Whittaker on 09-28-2021 Lipase [Catalytic activity/Vol] 36.0 U/L 22-51 [facility] Natriuretic peptide B (Bld) [Mass/Vol] 17.0 pg/mL 5-100 [facility] Laboratory - CoagulationOrde red By: Roberto Whittaker on 09-28-2021 PT Coag (PPP) [Time] 12.3 s 9.0-12.9 [facility] Laboratory - Hematology and Cell countsOrdered By: Roberto Whittaker on 09-28-2021 Nucleated RBC/100 WBC (Bld) [Ratio] 0.0 % 0-0.5 [facility] Lymphocytes Auto (Bld) [#/Vo l]Ordered By: Roberto Whittaker on 09-28-2021 Lymphocytes (Bld) [#/Vol] 2.7 10*3/uL 1.00-4.8 [facility] Lymphocytes/100 WBC Auto (Bl d)Ordered By: Roberto Whittaker on 09-28-2021 Lymphocytes/100 WBC (Bld) 43.6 % [facility] MCH Auto (RBC) [Entitic mass ]Ordered By: Roberto Whittaker on 09-28-2021 MCH (RBC) [Entitic mass] 29.8 pg 24.7-34.3 [facility] MCHC Auto (RBC) [Mass/Vol]Or dered By: Roberto Whittaker on 09-28-2021 MCHC (RBC) [Mass/Vol] 33.2 g/dL 32.0-35.0 [facility] MCV Auto (RBC) [Entitic vol] Ordered By: Roberto Whittaker on 09-28-2021 MCV (RBC) [Entitic vol] 89.6 fL 80-100 [facility] Monocytes Auto (Bld) [#/Vol] Ordered By: Roberto Whittaker on 09-28-2021 Monocytes (Bld) [#/Vol] 0.4 10*3/uL 0.0-0.8 [facility] Monocytes/100 WBC Auto (Bld) Ordered By: Roberto Whittaker on 09-28-2021 Monocytes/100 WBC (Bld) 6.8 % [facility] Neutrophils Auto (Bld) [#/Vo l]Ordered By: Roberto Whittaker on 09-28-2021 Neutrophils (Bld) [#/Vol] 2.9 10*3/uL 1.8-7.7 [facility] Neutrophils/100 WBC Auto (Bl d)Ordered By: Roberto Whittaker on 09-28-2021 Neutrophils/100 WBC (Bld) 47.1 % [facility] No Panel InformationOrdered By: Roberto Whittaker on 09-28-2021 Estimated GFR () > 60 mL/Min [facility] Comment on above: GFR estimated refere nce range: According to KDOQI guidelines, <60 ml/min/1.73m2 is sufficient to diagnose a patient with chronic kidney disease. Pharmacy Creatinine Clearance (Chem 91.21 [facility] Platelet mean volume Auto (B ld) [Entitic vol]Ordered By: Roberto Whittaker on 09-28-2021 Platelet mean volume (Bld) [Entitic vol] 7.7 fL 6.3-10.7 [facility] Platelet poor plasma interna tional normalized ratio (INR) by coagulation assay (relatOrdered By: Roberto Whittaker on 09-28-2021 INR Coag (PPP) [Relative time] 1.1 {INR} [facility] Comment on above: INR Therapeutic Rang e [...] 09-28-2021 Platelets (Bld) [#/Vol] 291 10*3/uL 150-450 [facility] Protein [Mass/volume] in Ser um or PlasmaOrdered By: Roberto Whittaker on 09-28-2021 Protein [Mass/Vol] 7.5 g/dL 6.1-7.9 [facility] RBC Auto (Bld) [#/Vol]Ordere d By: Roberto Whittaker on 09-28-2021 RBC (Bld) [#/Vol] 4.93 10*6/uL 3.60-5.00 [facility] Serum or plasma alanine white otransferase measurement without P-5'-P (enzymatic activiOrdered By: Roberto Whittaker on 09-28-2021 ALT No additional P-5'-P [Catalytic activity/Vol] 9 U/L 10-60 [facility] Serum or plasma albumin/glob ulin mass ratioOrdered By: Roberto Whittaker on 09-28-2021 Albumin/Globulin [Mass ratio] 1.3 {ratio} [facility] Serum or plasma alkaline ignacio sphatase measurement (enzymatic activity/volume)Ordered By: Roberto Whittaker on 09-28-2021 ALP [Catalytic activity/Vol] 51 U/L 32-92 [facility] Serum or plasma aspartate am inotransferase measurement (enzymatic activity/volume)Ordered By: Roberto Whittaker on 09-28-2021 AST [Catalytic activity/Vol] 16 U/L 10-42 [facility] Serum or plasma calcium randi urement (mass/volume)Ordered By: Roberto Whittaker on 09-28-2021 Calcium [Mass/Vol] 9.2 mg/dL 8.2-10.2 [facility] Serum or plasma chloride melonie surement (moles/volume)Ordered By: Roberto Whittaker on 09-28-2021 Chloride [Moles/Vol] 104 mmol/L 95-114 [facility] Serum or plasma glucose randi urement (mass/volume)Ordered By: Roberto Whittaker on 09-28-2021 Glucose [Mass/Vol] 100 mg/dL 70-100 [facility] Comment on above: ADA recommended refe rence rangeRandom Glucose Reference Range is dependent on time and content of last meal. Glucose of more than 200 mg/dL in a nonstressed, ambulatory subject supports the diagnosis of Diabetes Mellitus. Serum or plasma non-glucuron idated bilirubin measurement (mass/volume)Ordered By: Roberto Whittaker on 09-28-2021 Bilirubin.indirect [Mass/Vol] TNP [facility] Comment on above: Test not performed Serum or plasma potassium me asurement (moles/volume)Ordered By: Roberto Whittaker on 09-28-2021 Potassium [Moles/Vol] 4.4 mmol/L 3.5-5.1 [facility] Serum or plasma sodium measu rement (moles/volume)Ordered By: Roberto Whittaker on 09-28-2021 Sodium [Moles/Vol] 140 mmol/L 136-146 [facility] Serum or plasma total biliru bin measurement (mass/volume)Ordered By: Roberto Whittaker on 09-28-2021 Bilirubin [Mass/Vol] 0.4 mg/dL 0.3-1.2 [facility] Serum or plasma total carbon dioxide measurement (moles/volume)Ordered By: Roberto Whittaker on 09-28-2021 CO2 [Moles/Vol] 28.1 mmol/L 22.0-30.[address] [facility] Serum or plasma urea nitroge n measurement (mass/volume)Ordered By: Roberto Whittaker on 09-28-2021 Urea nitrogen [Mass/Vol] 5 mg/dL 9- [facility] Troponin I.cardiac [Mass/vol ume] in Serum or Plasma by High sensitivity methodOrdered By: Roberto Whittaker on 09-28-2021 Troponin I.cardiac High sensitivity method [Mass/Vol] < 3 pg/mL 0-15 [facility] Albumin [Mass/volume] in Ser um or PlasmaOrdered By: Luz Fiore on 09-09-2021 Albumin [Mass/Vol] 4.0 g/dL 3.2-5.5 [facility] Amphetamine Screen Ql (U)Ord ered By: Luz Fiore on 09-09-2021 Amphetamines Ql (U) Negative Negative [facility] Automated erythrocytes count in urine sediment (number/area)Ordered By: Luz Fiore on 09-09-2021 RBC Auto (Urine sed) [#/Area] 50-100 [HPF] [facility] Automated leukocytes count i n urine sediment (number/area)Ordered By: Luz Fiore on 09-09-2021 WBC Auto (Urine sed) [#/Area] 20-49 [HPF] [facility] Barbiturates [Presence] in U rineOrdered By: Luz Fiore on 09-09-2021 Barbiturates Ql (U) Negative Negative [facility] Basophils Auto (Bld) [#/Vol] Ordered By: Luz Fiore on 09-09-2021 Basophils (Bld) [#/Vol] 0.0 10*3/uL 0.0-0.2 [facility] Basophils/100 WBC Auto (Bld) Ordered By: Luz Fiore on 09-09-2021 Basophils/100 WBC (Bld) 0.5 % [facility] Benzodiazepines [Presence] i n UrineOrdered By: Luz Fiore on 09-09-2021 Benzodiazepines Ql (U) Negative [facility] Bilirubin Test strip Ql (U)O rdered By: Luz Fiore on 09-09-2021 Bilirubin Ql (U) Negative Negative [facility] Blood hemoglobin measurement (mass/volume)Ordered By: Luz Fiore on 09-09-2021 Hemoglobin (Bld) [Mass/Vol] 14.1 g/dL 11.8-15.4 [facility] Blood leukocytes automated c ount (number/volume)Ordered By: Luz Fiore on 09-09-2021 WBC (Bld) [#/Vol] 8.3 10*3/uL 4.5-11.0 [facility] Cannabinoids [Presence] in U rine by Screen methodOrdered By: Luz Fiore on 09-09-2021 Cannabinoids Screen Ql (U) Positive Negative [facility] Comment on above: These are unconfirme d results and should not be used for legal purposes. Drug Cut-Off Concentration: AMPH 1000 ng/mL DOMINIQUE 200 ng/mL BRICE 200 ng/mL COCM 300 ng/mL OP 300 ng/mL PCP 25 ng/mL THC 20 ng/mL Color Auto (U)Ordered By: Giovanni Fiore on 09-09-2021 Color (U) Yellow Yellow [facility] Creatinine and Glomerular fi ltration rate.predicted panel (S/P/Bld)Ordered By: Luz Fiore on 09-09-2021 Creatinine [Mass/Vol] 0.76 mg/dL 0.44-1.03 [facility] Eosinophils Auto (Bld) [#/Vo l]Ordered By: Luz Fiore on 09-09-2021 Eosinophils (Bld) [#/Vol] 0.1 10*3/uL 0.0-0.45 [facility] Eosinophils/100 WBC Auto (Bl d)Ordered By: Luz Fiore on 09-09-2021 Eosinophils/100 WBC (Bld) 1.8 % [facility] Erythrocyte distribution wid th Auto (RBC) [Ratio]Ordered By: Luz Fiore on 09-09-2021 Erythrocyte distribution width (RBC) [Ratio] 13.1 % 11.9-15.3 [facility] Estimated glomerular filtrat ion rate (GFR) non- AmericanOrdered By: Luz Fiore on 09-09-2021 GFR/1.73 sq M.predicted among non-blacks MDRD (S/P/Bld) [Vol rate/Area] > 60 mL/Min [facility] Globulin Calc (S) [Mass/Vol] Ordered By: Luz Fiore on 09-09-2021 Globulin (S) [Mass/Vol] 3.0 g/dL [facility] Glucose Glucometer (BldC) [M ass/Vol]Ordered By: Luz Fiore on 09-09-2021 Glucose [Mass/Vol] 106 mg/dL [facility] Comment on above: Random Glucose Refer ence Range is dependent on time and content of last meal. Glucose of more than 200 mg/dL in a nonstressed, ambulatory subject supports the diagnosis of Diabetes Mellitus. Hematocrit Auto (Bld) [Volum e fraction]Ordered By: Luz Fiore on 09-09-2021 Hematocrit (Bld) [Volume fraction] 40.9 % 34.0-46.4 [facility] Ketones Auto test strip (U) [Mass/Vol]Ordered By: Luz Fiore on 09-09-2021 Ketones (U) [Mass/Vol] Negative Negative Fi [facility] Laboratory - Chemistry and C hemistry - challengeOrdered By: Luz Fiore on 09-09-2021 Magnesium [Mass/Vol] 2.0 mg/dL 1.6-2.6 [facility] Laboratory - CoagulationOrde red By: Luz Fiore on 09-09-2021 PT Coag (PPP) [Time] 12.4 s 9.0-12.9 [facility] Laboratory - Drug toxicology Ordered By: Luz Fiore on 09-09-2021 Opiates Ql (U) Negative Negative [facility] Laboratory - Hematology and Cell countsOrdered By: Luz Fiore on 09-09-2021 Nucleated RBC/100 WBC (Bld) [Ratio] 0.1 % 0-0.5 [facility] Laboratory - UrinalysisOrder ed By: Luz Fiore on 09-09-2021 Hyaline casts LM Ql (Urine sed) 0-8 [LPF] [facility] Lymphocytes Auto (Bld) [#/Vo l]Ordered By: Luz Fiore on 09-09-2021 Lymphocytes (Bld) [#/Vol] 3.2 10*3/uL 1.00-4.8 [facility] Lymphocytes/100 WBC Auto (Bl d)Ordered By: Luz Fiore on 09-09-2021 Lymphocytes/100 WBC (Bld) 38.6 % [facility] MCH Auto (RBC) [Entitic mass ]Ordered By: Luz Fiore on 09-09-2021 MCH (RBC) [Entitic mass] 30.6 pg 24.7-34.3 [facility] MCHC Auto (RBC) [Mass/Vol]Or dered By: Luz Fiore on 09-09-2021 MCHC (RBC) [Mass/Vol] 34.5 g/dL 32.0-35.0 [facility] MCV Auto (RBC) [Entitic vol] Ordered By: Luz Fiore on 09-09-2021 MCV (RBC) [Entitic vol] 88.6 fL 80-100 [facility] Monocytes Auto (Bld) [#/Vol] Ordered By: Luz Fiore on 09-09-2021 Monocytes (Bld) [#/Vol] 0.5 10*3/uL 0.0-0.8 [facility] Monocytes/100 WBC Auto (Bld) Ordered By: Luz Fiore on 09-09-2021 Monocytes/100 WBC (Bld) 6.3 % [facility] Neutrophils Auto (Bld) [#/Vo l]Ordered By: Luz Fiore on 09-09-2021 Neutrophils (Bld) [#/Vol] 4.4 10*3/uL 1.8-7.7 [facility] Neutrophils/100 WBC Auto (Bl d)Ordered By: Luz Fiore on 09-09-2021 Neutrophils/100 WBC (Bld) 52.8 % [facility] Nitrite Test strip Ql (U)Ord ered By: Luz Fiore on 09-09-2021 Nitrite Ql (U) Negative Negative [facility] No Panel InformationOrdered By: Luz Fiore on 09-09-2021 Estimated GFR () > 60 mL/Min [facility] Comment on above: GFR estimated refere nce range: According to KDOQI guidelines, <60 ml/min/1.73m2 is sufficient to diagnose a patient with chronic kidney disease. Pharmacy Creatinine Clearance (Chem 83.88 [facility] Phencyclidine Screen Ql (U)O rdered By: Luz Fiore on 09-09-2021 Phencyclidine Ql (U) Negative Negative [facility] Platelet mean volume Auto (B ld) [Entitic vol]Ordered By: Luz Fiore on 09-09-2021 Platelet mean volume (Bld) [Entitic vol] 8.5 fL 6.3-10.7 [facility] Platelet poor plasma interna tional normalized ratio (INR) by coagulation assay (relatOrdered By: Luz Fiore on 09-09-2021 INR Coag (PPP) [Relative time] 1.1 {INR} [facility] Comment on above: INR Therapeutic Rang e [...] 09-09-2021 Platelets (Bld) [#/Vol] 249 10*3/uL 150-450 [facility] Protein Auto test strip (U) [Mass/Vol]Ordered By: Luz Fiore on 09-09-2021 Protein (U) [Mass/Vol] 30 mg/dL Negative Fi [facility] Protein [Mass/volume] in Ser um or PlasmaOrdered By: Luz Fiore on 09-09-2021 Protein [Mass/Vol] 7.0 g/dL 6.1-7.9 [facility] RBC Auto (Bld) [#/Vol]Ordere d By: Luz Fiore on 09-09-2021 RBC (Bld) [#/Vol] 4.62 10*6/uL 3.60-5.00 [facility] Serum or plasma alanine white otransferase measurement without P-5'-P (enzymatic activiOrdered By: Luz Fiore on 09-09-2021 ALT No additional P-5'-P [Catalytic activity/Vol] 11 U/L 10-60 [facility] Serum or plasma albumin/glob ulin mass ratioOrdered By: Luz Fiore on 09-09-2021 Albumin/Globulin [Mass ratio] 1.3 {ratio} [facility] Serum or plasma alkaline ignacio sphatase measurement (enzymatic activity/volume)Ordered By: Luz Fiore on 09-09-2021 ALP [Catalytic activity/Vol] 45 U/L 32-92 [facility] Serum or plasma aspartate am inotransferase measurement (enzymatic activity/volume)Ordered By: Luz Fiore on 09-09-2021 AST [Catalytic activity/Vol] 24 U/L 10-42 [facility] Serum or plasma calcium randi urement (mass/volume)Ordered By: Luz Fiore on 09-09-2021 Calcium [Mass/Vol] 9.2 mg/dL 8.2-10.2 [facility] Serum or plasma chloride melonie surement (moles/volume)Ordered By: Luz Fiore on 09-09-2021 Chloride [Moles/Vol] 103 mmol/L 95-114 [facility] Serum or plasma glucose randi urement (mass/volume)Ordered By: Luz Fiore on 09-09-2021 Glucose [Mass/Vol] 85 mg/dL 70-100 [facility] Comment on above: ADA recommended refe rence rangeRandom Glucose Reference Range is dependent on time and content of last meal. Glucose of more than 200 mg/dL in a nonstressed, ambulatory subject supports the diagnosis of Diabetes Mellitus. Serum or plasma potassium me asurement (moles/volume)Ordered By: Luz Fiore on 09-09-2021 Potassium [Moles/Vol] 4.2 mmol/L 3.5-5.1 [facility] Serum or plasma sodium measu rement (moles/volume)Ordered By: Luz Fiore on 09-09-2021 Sodium [Moles/Vol] 138 mmol/L 136-146 [facility] Serum or plasma total biliru bin measurement (mass/volume)Ordered By: Luz Fiore on 09-09-2021 Bilirubin [Mass/Vol] 0.3 mg/dL 0.3-1.2 [facility] Serum or plasma total carbon dioxide measurement (moles/volume)Ordered By: Luz Fiore on 09-09-2021 CO2 [Moles/Vol] 26.3 mmol/L 22.0-30.[address] [facility] Serum or plasma urea nitroge n measurement (mass/volume)Ordered By: Luz Fiore on 09-09-2021 Urea nitrogen [Mass/Vol] 8 mg/dL 9-23 [facility] Specific gravity Auto test s trip (U) [Rel density]Ordered By: Luz Fiore on 09-09-2021 Specific gravity (U) [Rel density] 1.017 1.001-1.03 0 [facility] Squamous epithelial cells de tection in urine sediment by light microscopyOrdered By: Luz Fiore on 09-09-2021 Epithelial cells.squamous LM Ql (Urine sed) 1-2 [HPF] [facility] Urine bacteria detection by automated methodOrdered By: Luz Fiore on 09-09-2021 Bacteria Auto Ql (U) None seen None Seen [facility] Urine clarity by refractomet ry automatedOrdered By: Luz Fiore on 09-09-2021 Clarity Refractometry automated (U) Cloudy Clear [facility] Urine cocaine detectionOrder ed By: Luz Fiore on 09-09-2021 Cocaine Ql (U) Negative Negative [facility] Urine culture routineOrdered By: Luz Fiore on 09-09-2021 Bacteria identified Cx Nom (U) 2 Days [facility] Urine glucose measurement by automated test strip (mass/volume)Ordered By: Luz Fiore on 09-09-2021 Glucose Auto test strip (U) [Mass/Vol] Normal mg/dL Normal [facility] Urine hemoglobin detection b y automated test stripOrdered By: Luz Fiore on 09-09-2021 Hemoglobin Auto test strip Ql (U) 2+ Negative [facility] Urine leukocyte esterase det ection by automated test stripOrdered By: Luz Fiore on 09-09-2021 Leukocyte esterase Auto test strip Ql (U) 3+ Negative [facility] Urobilinogen Auto test strip (U) [Mass/Vol]Ordered By: Luz Fiore on 09-09-2021 Urobilinogen (U) [Mass/Vol] Normal mg/dL Normal [facility] pH Auto test strip (U)Ordere d By: Luz Fiore on 09-09-2021 pH (U) 7.0 [pH] 5.0-9.0 [facility] Albumin [Mass/volume] in Ser um or PlasmaOrdered By: Tommy Bowen on 08-12-2021 Albumin [Mass/Vol] 4.0 g/dL 3.2-5.5 [facility] Automated erythrocytes count in urine sediment (number/area)Ordered By: Tommy Bowen on 08-12-2021 RBC Auto (Urine sed) [#/Area] Innumerable [HPF] [facility] Automated leukocytes count i n urine sediment (number/area)Ordered By: Tommy Bowen on 08-12-2021 WBC Auto (Urine sed) [#/Area] 5-9 [HPF] [facility] Basophils Auto (Bld) [#/Vol] Ordered By: Tommy Bowen on 08-12-2021 Basophils (Bld) [#/Vol] 0.0 10*3/uL 0.0-0.2 [facility] Basophils/100 WBC Auto (Bld) Ordered By: Tommy Bowen on 08-12-2021 Basophils/100 WBC (Bld) 0.3 % [facility] Bilirubin Test strip Ql (U)O rdered By: Tommy Bowen on 08-12-2021 Bilirubin Ql (U) Negative Negative [facility] Blood hemoglobin measurement (mass/volume)Ordered By: Tommy Bowen on 08-12-2021 Hemoglobin (Bld) [Mass/Vol] 13.9 g/dL 11.8-15.4 [facility] Blood leukocytes automated c ount (number/volume)Ordered By: Tommy Bowen on 08-12-2021 WBC (Bld) [#/Vol] 8.6 10*3/uL 4.5-11.0 [facility] Color Auto (U)Ordered By: Hermes Bowen on 08-12-2021 Color (U) Yellow Yellow [facility] Creatinine and Glomerular fi ltration rate.predicted panel (S/P/Bld)Ordered By: Tommy Bowen on 08-12-2021 Creatinine [Mass/Vol] 0.70 mg/dL 0.44-1.03 [facility] Eosinophils Auto (Bld) [#/Vo l]Ordered By: Tommy Bowen on 08-12-2021 Eosinophils (Bld) [#/Vol] 0.0 10*3/uL 0.0-0.45 [facility] Eosinophils/100 WBC Auto (Bl d)Ordered By: Tommy Bowen on 08-12-2021 Eosinophils/100 WBC (Bld) 0.3 % [facility] Erythrocyte distribution wid th Auto (RBC) [Ratio]Ordered By: Tommy Bowen on 08-12-2021 Erythrocyte distribution width (RBC) [Ratio] 12.7 % 11.9-15.3 [facility] Estimated glomerular filtrat ion rate (GFR) non- AmericanOrdered By: Tommy Bowen on 08-12-2021 GFR/1.73 sq M.predicted among non-blacks MDRD (S/P/Bld) [Vol rate/Area] > 60 mL/Min [facility] Globulin Calc (S) [Mass/Vol] Ordered By: Tommy Bowen on 08-12-2021 Globulin (S) [Mass/Vol] 3.6 g/dL [facility] Glucose Glucometer (BldC) [M ass/Vol]Ordered By: Tommy Bowen on 08-12-2021 Glucose [Mass/Vol] 102 mg/dL [facility] Comment on above: Random Glucose Refer ence Range is dependent on time and content of last meal. Glucose of more than 200 mg/dL in a nonstressed, ambulatory subject supports the diagnosis of Diabetes Mellitus. Hematocrit Auto (Bld) [Volum e fraction]Ordered By: Tommy Bowen on 08-12-2021 Hematocrit (Bld) [Volume fraction] 40.4 % 34.0-46.4 [facility] Ketones Auto test strip (U) [Mass/Vol]Ordered By: Tommy Bowen on 08-12-2021 Ketones (U) [Mass/Vol] Trace Negative [facility] - Hematology and Cell countsOrdered By: Tommy Bowen on 08-12-2021 Nucleated RBC/100 WBC (Bld) [Ratio] 0.1 % 0-0.5 [facility] Laboratory - UrinalysisOrder ed By: Tommy Bowen on 08-12-2021 Hyaline casts LM Ql (Urine sed) 0-8 [LPF] [facility] Lymphocytes Auto (Bld) [#/Vo l]Ordered By: Tommy Bowen on 08-12-2021 Lymphocytes (Bld) [#/Vol] 2.0 10*3/uL 1.00-4.8 [facility] Lymphocytes/100 WBC Auto (Bl d)Ordered By: Tommy Bowen on 08-12-2021 Lymphocytes/100 WBC (Bld) 23.2 % [facility] MCH Auto (RBC) [Entitic mass ]Ordered By: Tommy Bowen on 08-12-2021 MCH (RBC) [Entitic mass] 30.2 pg 24.7-34.3 [facility] MCHC Auto (RBC) [Mass/Vol]Or dered By: Tommy Bowen on 08-12-2021 MCHC (RBC) [Mass/Vol] 34.5 g/dL 32.0-35.0 [facility] MCV Auto (RBC) [Entitic vol] Ordered By: Tommy Bowen on 08-12-2021 MCV (RBC) [Entitic vol] 87.6 fL 80-100 [facility] Monocytes Auto (Bld) [#/Vol] Ordered By: Tommy Bowen on 08-12-2021 Monocytes (Bld) [#/Vol] 0.6 10*3/uL 0.0-0.8 [facility] Monocytes/100 WBC Auto (Bld) Ordered By: Tommy Bowen on 08-12-2021 Monocytes/100 WBC (Bld) 6.7 % [facility] Neutrophils Auto (Bld) [#/Vo l]Ordered By: Tommy Bowen on 08-12-2021 Neutrophils (Bld) [#/Vol] 6.0 10*3/uL 1.8-7.7 [facility] Neutrophils/100 WBC Auto (Bl d)Ordered By: Tommy Bowen on 08-12-2021 Neutrophils/100 WBC (Bld) 69.5 % [facility] Nitrite Test strip Ql (U)Ord ered By: Tommy Bowen on 08-12-2021 Nitrite Ql (U) Negative Negative [facility] No Panel InformationOrdered By: Tommy Bowen on 08-12-2021 Estimated GFR () > 60 mL/Min [facility] Comment on above: GFR estimated refere nce range: According to KDOQI guidelines, <60 ml/min/1.73m2 is sufficient to diagnose a patient with chronic kidney disease. Pharmacy Creatinine Clearance (Chem 143.12 [facility] Platelet mean volume Auto (B ld) [Entitic vol]Ordered By: Tommy Bowen on 08-12-2021 Platelet mean volume (Bld) [Entitic vol] 7.9 fL 6.3-10.7 [facility] Platelets Auto (Bld) [#/Vol] Ordered By: Tommy Bowen on 08-12-2021 Platelets (Bld) [#/Vol] 315 10*3/uL 150-450 [facility] Protein Auto test strip (U) [Mass/Vol]Ordered By: Tommy Bowen on 08-12-2021 Protein (U) [Mass/Vol] 30 mg/dL Negative [facility] Protein [Mass/volume] in Ser um or PlasmaOrdered By: Tommy Bowen on 08-12-2021 Protein [Mass/Vol] 7.6 g/dL 6.1-7.9 [facility] RBC Auto (Bld) [#/Vol]Ordere d By: Tommy Bowen on 08-12-2021 RBC (Bld) [#/Vol] 4.61 10*6/uL 3.60-5.00 [facility] Serum or plasma alanine white otransferase measurement without P-5'-P (enzymatic activiOrdered By: Tommy Bowen on 08-12-2021 ALT No additional P-5'-P [Catalytic activity/Vol] 11 U/L 10-60 [facility] Serum or plasma albumin/glob ulin mass ratioOrdered By: Tommy Bowen on 08-12-2021 Albumin/Globulin [Mass ratio] 1.1 {ratio} [facility] Serum or plasma alkaline ignacio sphatase measurement (enzymatic activity/volume)Ordered By: Tommy Bowen on 08-12-2021 ALP [Catalytic activity/Vol] 58 U/L 32-92 [facility] Serum or plasma aspartate am inotransferase measurement (enzymatic activity/volume)Ordered By: Tommy Bowen on 08-12-2021 AST [Catalytic activity/Vol] 16 U/L 10-42 [facility] Serum or plasma calcium randi urement (mass/volume)Ordered By: Tommy Bowen on 08-12-2021 Calcium [Mass/Vol] 9.1 mg/dL 8.2-10.2 [facility] Serum or plasma chloride melonie surement (moles/volume)Ordered By: Tommy Bowen on 08-12-2021 Chloride [Moles/Vol] 102 mmol/L 95-114 [facility] Serum or plasma glucose randi urement (mass/volume)Ordered By: Tommy Bowen on 08-12-2021 Glucose [Mass/Vol] 86 mg/dL 70-100 [facility] Comment on above: ADA recommended refe rence rangeRandom Glucose Reference Range is dependent on time and content of last meal. Glucose of more than 200 mg/dL in a nonstressed, ambulatory subject supports the diagnosis of Diabetes Mellitus. Serum or plasma potassium me asurement (moles/volume)Ordered By: Tommy Bowen on 08-12-2021 Potassium [Moles/Vol] 3.6 mmol/L 3.5-5.1 [facility] Serum or plasma sodium measu rement (moles/volume)Ordered By: Tommy Bowen on 02-16-2022 Sodium [Moles/Vol] 136 mmol/L 136-146 [facility] Serum or plasma total biliru bin measurement (mass/volume)Ordered By: Tommy Bowen on 08-12-2021 Bilirubin [Mass/Vol] 0.5 mg/dL 0.3-1.2 [facility] Serum or plasma total carbon dioxide measurement (moles/volume)Ordered By: Tommy Bowen on 08-12-2021 CO2 [Moles/Vol] 23.8 mmol/L 22.0-30.[address] [facility] Serum or plasma urea nitroge n measurement (mass/volume)Ordered By: Tommy Bowen on 08-12-2021 Urea nitrogen [Mass/Vol] 6 mg/dL 9-23 [facility] Specific gravity Auto test s trip (U) [Rel density]Ordered By: Tommy Bowen on 08-12-2021 Specific gravity (U) [Rel density] 1.018 1.001-1.03 0 [facility] Squamous epithelial cells de tection in urine sediment by light microscopyOrdered By: Tommy Bowen on 08-12-2021 Epithelial cells.squamous LM Ql (Urine sed) 3-4 [HPF] [facility] Urine bacteria detection by automated methodOrdered By: Tommy Bowen on 08-12-2021 Bacteria Auto Ql (U) None seen None Seen [facility] Urine clarity by refractomet ry automatedOrdered By: Tommy Bowen on 08-12-2021 Clarity Refractometry automated (U) Clear Clear [facility] Urine culture routineOrdered By: Tommy Bowen on 08-12-2021 Bacteria identified Cx Nom (U) No Growth 2 Days [facility] Urine glucose measurement by automated test strip (mass/volume)Ordered By: Tommy Bowen on 08-12-2021 Glucose Auto test strip (U) [Mass/Vol] Normal mg/dL Normal [facility] Urine hemoglobin detection b y automated test stripOrdered By: Tommy Bowen on 08-12-2021 Hemoglobin Auto test strip Ql (U) 3+ Negative [facility] Urine leukocyte esterase det ection by automated test stripOrdered By: Tommy Bowen on 08-12-2021 Leukocyte esterase Auto test strip Ql (U) 1+ Negative [facility] Urobilinogen Auto test strip (U) [Mass/Vol]Ordered By: Tommy Bowen on 08-12-2021 Urobilinogen (U) [Mass/Vol] Normal mg/dL Normal [facility] pH Auto test strip (U)Ordere d By: Tommy Bowen on 08-12-2021 pH (U) 8.0 [pH] 5.0-9.0 [facility] Albumin [Mass/volume] in Ser um or PlasmaOrdered By: Tommy Bowen on 08-07-2021 Albumin [Mass/Vol] 4.4 g/dL 3.2-5.5 [facility] Automated erythrocytes count in urine sediment (number/area)Ordered By: Tommy Bowen on 08-07-2021 RBC Auto (Urine sed) [#/Area] 50-100 [HPF] [facility] Automated leukocytes count i n urine sediment (number/area)Ordered By: Tommy Bowen on 08-07-2021 WBC Auto (Urine sed) [#/Area] 10-19 [HPF] [facility] Basophils Auto (Bld) [#/Vol] Ordered By: Tommy Bowen on 08-07-2021 Basophils (Bld) [#/Vol] 0.0 10*3/uL 0.0-0.2 [facility] Basophils/100 WBC Auto (Bld) Ordered By: Tommy Bowen on 08-07-2021 Basophils/100 WBC (Bld) 0.4 % [facility] Bilirubin Test strip Ql (U)O rdered By: Tommy Bowen on 08-07-2021 Bilirubin Ql (U) Negative Negative [facility] Blood hemoglobin measurement (mass/volume)Ordered By: Tommy Bowen on 08-07-2021 Hemoglobin (Bld) [Mass/Vol] 14.1 g/dL 11.8-15.4 [facility] Blood leukocytes automated c ount (number/volume)Ordered By: Tommy Bowen on 08-07-2021 WBC (Bld) [#/Vol] 10.0 10*3/uL 4.5-11.0 [facility] Color Auto (U)Ordered By: Hermes Bowen on 08-07-2021 Color (U) Yellow Yellow [facility] Creatinine and Glomerular fi ltration rate.predicted panel (S/P/Bld)Ordered By: Tommy Bowen on 08-07-2021 Creatinine [Mass/Vol] 0.75 mg/dL 0.44-1.03 [facility] Eosinophils Auto (Bld) [#/Vo l]Ordered By: Tommy oBwen on 08-07-2021 Eosinophils (Bld) [#/Vol] 0.0 10*3/uL 0.0-0.45 [facility] Eosinophils/100 WBC Auto (Bl d)Ordered By: Tommy Bowen on 08-07-2021 Eosinophils/100 WBC (Bld) 0.4 % [facility] Erythrocyte distribution wid th Auto (RBC) [Ratio]Ordered By: Tommy Bowen on 08-07-2021 Erythrocyte distribution width (RBC) [Ratio] 12.7 % 11.9-15.3 [facility] Estimated glomerular filtrat ion rate (GFR) non- AmericanOrdered By: Tommy Bowen on 08-07-2021 GFR/1.73 sq M.predicted among non-blacks MDRD (S/P/Bld) [Vol rate/Area] > 60 mL/Min [facility] Globulin Calc (S) [Mass/Vol] Ordered By: Tommy Bowen on 08-07-2021 Globulin (S) [Mass/Vol] 3.6 g/dL [facility] Hematocrit Auto (Bld) [Volum e fraction]Ordered By: Tommy Bowen on 08-07-2021 Hematocrit (Bld) [Volume fraction] 41.5 % 34.0-46.4 [facility] Ketones Auto test strip (U) [Mass/Vol]Ordered By: Tommy Bowen on 08-07-2021 Ketones (U) [Mass/Vol] [facility] and Cell countsOrdered By: Tommy Bowen on 08-07-2021 Nucleated RBC/100 WBC (Bld) [Ratio] 0.0 % 0-0.5 [facility] Laboratory - UrinalysisOrder ed By: Tommy Bowen on 08-07-2021 Hyaline casts LM Ql (Urine sed) 0-8 [LPF] [facility] Lymphocytes Auto (Bld) [#/Vo l]Ordered By: Tommy Bowen on 08-07-2021 Lymphocytes (Bld) [#/Vol] 2.5 10*3/uL 1.00-4.8 [facility] Lymphocytes/100 WBC Auto (Bl d)Ordered By: Tommy Bowen on 08-07-2021 Lymphocytes/100 WBC (Bld) 25.4 % [facility] MCH Auto (RBC) [Entitic mass ]Ordered By: Tommy Bowen on 08-07-2021 MCH (RBC) [Entitic mass] 29.8 pg 24.7-34.3 [facility] MCHC Auto (RBC) [Mass/Vol]Or dered By: Tommy Bowen on 08-07-2021 MCHC (RBC) [Mass/Vol] 33.9 g/dL 32.0-35.0 [facility] MCV Auto (RBC) [Entitic vol] Ordered By: Tommy Bowen on 08-07-2021 MCV (RBC) [Entitic vol] 87.7 fL 80-100 [facility] Monocytes Auto (Bld) [#/Vol] Ordered By: Tommy Bowen on 08-07-2021 Monocytes (Bld) [#/Vol] 0.8 10*3/uL 0.0-0.8 [facility] Monocytes/100 WBC Auto (Bld) Ordered By: Tommy Bowen on 08-07-2021 Monocytes/100 WBC (Bld) 7.8 % [facility] Neutrophils Auto (Bld) [#/Vo l]Ordered By: Tommy Bowen on 08-07-2021 Neutrophils (Bld) [#/Vol] 6.6 10*3/uL 1.8-7.7 [facility] Neutrophils/100 WBC Auto (Bl d)Ordered By: Tommy Bowen on 08-07-2021 Neutrophils/100 WBC (Bld) 66.0 % [facility] Nitrite Test strip Ql (U)Ord ered By: Tommy Bowen on 08-07-2021 Nitrite Ql (U) Negative Negative [facility] No Panel InformationOrdered By: Tommy Bowen on 08-07-2021 Estimated GFR () > 60 mL/Min [facility] Comment on above: GFR estimated refere nce range: According to KDOQI guidelines, <60 ml/min/1.73m2 is sufficient to diagnose a patient with chronic kidney disease. Pharmacy Creatinine Clearance (Chem N/A [facility] Platelet mean volume Auto (B ld) [Entitic vol]Ordered By: Tommy Bowen on 08-07-2021 Platelet mean volume (Bld) [Entitic vol] 7.5 fL 6.3-10.7 [facility] Platelets Auto (Bld) [#/Vol] Ordered By: Tommy Bowen on 08-07-2021 Platelets (Bld) [#/Vol] 325 10*3/uL 150-450 [facility] Protein Auto test strip (U) [Mass/Vol]Ordered By: Tommy Bowen on 08-07-2021 Protein (U) [Mass/Vol] 30 mg/dL Negative [facility] Protein [Mass/volume] in Ser um or PlasmaOrdered By: Tommy Bowen on 08-07-2021 Protein [Mass/Vol] 8.0 g/dL 6.1-7.9 [facility] RBC Auto (Bld) [#/Vol]Ordere d By: Tommy Bowen on 08-07-2021 RBC (Bld) [#/Vol] 4.73 10*6/uL 3.60-5.00 [facility] Serum or plasma alanine white otransferase measurement without P-5'-P (enzymatic activiOrdered By: Tommy Bowen on 08-07-2021 ALT No additional P-5'-P [Catalytic activity/Vol] 9 U/L 10-60 [facility] Serum or plasma albumin/glob ulin mass ratioOrdered By: Tommy Bowen on 08-07-2021 Albumin/Globulin [Mass ratio] 1.2 {ratio} [facility] Serum or plasma alkaline ignacio sphatase measurement (enzymatic activity/volume)Ordered By: Tommy Bowen on 08-07-2021 ALP [Catalytic activity/Vol] 56 U/L 32-92 [facility] Serum or plasma aspartate am inotransferase measurement (enzymatic activity/volume)Ordered By: Tommy Bowen on 08-07-2021 AST [Catalytic activity/Vol] 19 U/L 10-42 [facility] Serum or plasma calcium randi urement (mass/volume)Ordered By: Tommy Bowen on 08-07-2021 Calcium [Mass/Vol] 9.3 mg/dL 8.2-10.2 [facility] Serum or plasma chloride melonie surement (moles/volume)Ordered By: Tommy Bowen on 08-07-2021 Chloride [Moles/Vol] 102 mmol/L 95-114 [facility] Serum or plasma glucose randi urement (mass/volume)Ordered By: Tommy Bowen on 08-07-2021 Glucose [Mass/Vol] 88 mg/dL 70-100 [facility] Comment on above: ADA recommended refe rence rangeRandom Glucose Reference Range is dependent on time and content of last meal. Glucose of more than 200 mg/dL in a nonstressed, ambulatory subject supports the diagnosis of Diabetes Mellitus. Serum or plasma potassium me asurement (moles/volume)Ordered By: Tommy Bowen on 08-07-2021 Potassium [Moles/Vol] 3.7 mmol/L 3.5-5.1 [facility] Serum or plasma sodium measu rement (moles/volume)Ordered By: Tommy Bowen on 08-07-2021 Sodium [Moles/Vol] 135 mmol/L 136-146 [facility] Serum or plasma total biliru bin measurement (mass/volume)Ordered By: Tommy Bowen on 08-07-2021 Bilirubin [Mass/Vol] 0.6 mg/dL 0.3-1.2 [facility] Serum or plasma total carbon dioxide measurement (moles/volume)Ordered By: Tommy Bowen on 08-07-2021 CO2 [Moles/Vol] 21.2 mmol/L 22.0-30.[address] [facility] Serum or plasma urea nitroge n measurement (mass/volume)Ordered By: Tommy Bowen on 08-07-2021 Urea nitrogen [Mass/Vol] 10 mg/dL 9-23 [facility] Specific gravity Auto test s trip (U) [Rel density]Ordered By: Tommy Bowen on 08-07-2021 Specific gravity (U) [Rel density] 1.018 1.001-1.03 0 [facility] Squamous epithelial cells de tection in urine sediment by light microscopyOrdered By: Tommy Bowen on 08-07-2021 Epithelial cells.squamous LM Ql (Urine sed) 3-4 [HPF] [facility] Urine bacteria detection by automated methodOrdered By: Tommy Bowen on 08-07-2021 Bacteria Auto Ql (U) None seen None Seen [facility] Urine clarity by refractomet ry automatedOrdered By: Tommy Bowen on 08-07-2021 Clarity Refractometry automated (U) Clear Clear [facility] Urine culture routineOrdered By: Tommy Bowen on 08-07-2021 Bacteria identified Cx Nom (U) No Growth 2 Days [facility] Urine glucose measurement by automated test strip (mass/volume)Ordered By: Tommy Bowen on 08-07-2021 Glucose Auto test strip (U) [Mass/Vol] Normal mg/dL Normal [facility] Urine hemoglobin detection b y automated test stripOrdered By: Tommy Bowen on 08-07-2021 Hemoglobin Auto test strip Ql (U) 2+ Negative [facility] Urine leukocyte esterase det ection by automated test stripOrdered By: Tommy Bowen on 08-07-2021 Leukocyte esterase Auto test strip Ql (U) 2+ Negative [facility] Urobilinogen Auto test strip (U) [Mass/Vol]Ordered By: Tommy Bowen on 08-07-2021 Urobilinogen (U) [Mass/Vol] Normal mg/dL Normal [facility] pH Auto test strip (U)Ordere d By: Tommy Bowen on 08-07-2021 pH (U) 7.0 [pH] 5.0-9.0 [facility] Albumin [Mass/volume] in Ser um or PlasmaOrdered By: Bobby Gallagher on 07-10-2021 Albumin [Mass/Vol] 3.8 g/dL 3.2-5.5 [facility] Automated erythrocytes count in urine sediment (number/area)Ordered By: Bobby Gallagher on 07-10-2021 RBC Auto (Urine sed) [#/Area] Innumerable [HPF] [facility] Automated leukocytes count i n urine sediment (number/area)Ordered By: Bobby Gallagher on 07-10-2021 WBC Auto (Urine sed) [#/Area] 5-9 [HPF] [facility] Basophils Auto (Bld) [#/Vol] Ordered By: Bobby Gallagher on 07-10-2021 Basophils (Bld) [#/Vol] 0.0 10*3/uL 0.0-0.2 [facility] Basophils/100 WBC Auto (Bld) Ordered By: Bobby Gallagher on 07-10-2021 Basophils/100 WBC (Bld) 0.6 % [facility] Bilirubin Test strip Ql (U)O rdered By: Bobby Gallagher on 07-10-2021 Bilirubin Ql (U) Negative Negative [facility] Blood hemoglobin measurement (mass/volume)Ordered By: Bobby Gallagher on 07-10-2021 Hemoglobin (Bld) [Mass/Vol] 13.2 g/dL 11.8-15.4 [facility] Blood leukocytes automated c ount (number/volume)Ordered By: Bobby Gallagher on 07-10-2021 WBC (Bld) [#/Vol] 5.8 10*3/uL 4.5-11.0 [facility] Color Auto (U)Ordered By: Victorino Gallagher on 07-10-2021 Color (U) Red Yellow [facility] Creatinine and Glomerular fi ltration rate.predicted panel (S/P/Bld)Ordered By: Bobby Gallagher on 07-10-2021 Creatinine [Mass/Vol] 0.80 mg/dL 0.44-1.03 [facility] Eosinophils Auto (Bld) [#/Vo l]Ordered By: Bobby Gallagher on 07-10-2021 Eosinophils (Bld) [#/Vol] 0.1 10*3/uL 0.0-0.45 [facility] Eosinophils/100 WBC Auto (Bl d)Ordered By: Bobby Gallagher on 07-10-2021 Eosinophils/100 WBC (Bld) 1.4 % [facility] Erythrocyte distribution wid th Auto (RBC) [Ratio]Ordered By: Bobby Gallagher on 07-10-2021 Erythrocyte distribution width (RBC) [Ratio] 13.0 % 11.9-15.3 [facility] Estimated glomerular filtrat ion rate (GFR) non- AmericanOrdered By: Bobby Gallagher on 07-10-2021 GFR/1.73 sq M.predicted among non-blacks MDRD (S/P/Bld) [Vol rate/Area] > 60 mL/Min [facility] Globulin Calc (S) [Mass/Vol] Ordered By: Bobby Gallagher on 07-10-2021 Globulin (S) [Mass/Vol] 2.7 g/dL [facility] Hematocrit Auto (Bld) [Volum e fraction]Ordered By: Bobby Gallagher on 07-10-2021 Hematocrit (Bld) [Volume fraction] 38.6 % 34.0-46.4 [facility] Ketones Auto test strip (U) [Mass/Vol]Ordered By: Bobby Gallagher on 07-10-2021 Ketones (U) [Mass/Vol] Negative Negative [facility] - Chemistry and C hemistry - challengeOrdered By: Bobby Gallagher on 07-10-2021 Magnesium [Mass/Vol] 2.0 mg/dL 1.6-2.6 [facility] Laboratory - Hematology and Cell countsOrdered By: Bobby Gallagher on 07-10-2021 Nucleated RBC/100 WBC (Bld) [Ratio] 0.3 % 0-0.5 [facility] Laboratory - UrinalysisOrder ed By: Bobby Gallagher on 07-10-2021 Hyaline casts LM Ql (Urine sed) 0-8 [LPF] [facility] Lymphocytes Auto (Bld) [#/Vo l]Ordered By: Bobby Gallagher on 07-10-2021 Lymphocytes (Bld) [#/Vol] 2.0 10*3/uL 1.00-4.8 [facility] Lymphocytes/100 WBC Auto (Bl d)Ordered By: Bobby Gallagher on 07-10-2021 Lymphocytes/100 WBC (Bld) 34.4 % [facility] MCH Auto (RBC) [Entitic mass ]Ordered By: Bobby Gallagher on 07-10-2021 MCH (RBC) [Entitic mass] 30.9 pg 24.7-34.3 [facility] MCHC Auto (RBC) [Mass/Vol]Or dered By: Bobby Gallagher on 07-10-2021 MCHC (RBC) [Mass/Vol] 34.2 g/dL 32.0-35.0 [facility] MCV Auto (RBC) [Entitic vol] Ordered By: Bobby Gallagher on 07-10-2021 MCV (RBC) [Entitic vol] 90.3 fL 80-100 [facility] Monocytes Auto (Bld) [#/Vol] Ordered By: Bobby Gallagher on 07-10-2021 Monocytes (Bld) [#/Vol] 0.4 10*3/uL 0.0-0.8 [facility] Monocytes/100 WBC Auto (Bld) Ordered By: Bobby Gallagher on 07-10-2021 Monocytes/100 WBC (Bld) 7.4 % [facility] Neutrophils Auto (Bld) [#/Vo l]Ordered By: Bobby Gallagher on 07-10-2021 Neutrophils (Bld) [#/Vol] 3.3 10*3/uL 1.8-7.7 [facility] Neutrophils/100 WBC Auto (Bl d)Ordered By: Bobby Gallagher on 07-10-2021 Neutrophils/100 WBC (Bld) 56.2 % [facility] Nitrite Test strip Ql (U)Ord ered By: Bobby Gallagher on 07-10-2021 Nitrite Ql (U) Negative Negative [facility] No Panel InformationOrdered By: Bobby Gallagher on 07-10-2021 Estimated GFR () > 60 mL/Min [facility] Comment on above: GFR estimated refere nce range: According to KDOQI guidelines, <60 ml/min/1.73m2 is sufficient to diagnose a patient with chronic kidney disease. Pharmacy Creatinine Clearance (Chem 84.65 [facility] Phosphate [Mass/volume] in S alexis or PlasmaOrdered By: Bobby Gallagher on 07-10-2021 Phosphate [Mass/Vol] 2.6 mg/dL 2.5-4.6 [facility] Platelet mean volume Auto (B ld) [Entitic vol]Ordered By: Bobby Gallagher on 07-10-2021 Platelet mean volume (Bld) [Entitic vol] 8.2 fL 6.3-10.7 [facility] Platelets Auto (Bld) [#/Vol] Ordered By: Bobby Gallagher on 07-10-2021 Platelets (Bld) [#/Vol] 243 10*3/uL 150-450 [facility] Protein Auto test strip (U) [Mass/Vol]Ordered By: Bobby Gallagher on 07-10-2021 Protein (U) [Mass/Vol] Trace mg/dL Negative F [facility] Protein [Mass/volume] in Ser um or PlasmaOrdered By: Bobby Gallagher on 07-10-2021 Protein [Mass/Vol] 6.5 g/dL 6.1-7.9 [facility] RBC Auto (Bld) [#/Vol]Ordere d By: Bobby Gallagher on 07-10-2021 RBC (Bld) [#/Vol] 4.27 10*6/uL 3.60-5.00 [facility] Serum or plasma alanine white otransferase measurement without P-5'-P (enzymatic activiOrdered By: Bobby Gallagher on 07-10-2021 ALT No additional P-5'-P [Catalytic activity/Vol] 9 U/L 10-60 [facility] Serum or plasma albumin/glob ulin mass ratioOrdered By: Bobby Gallagher on 07-10-2021 Albumin/Globulin [Mass ratio] 1.4 {ratio} [facility] Serum or plasma alkaline ignacio sphatase measurement (enzymatic activity/volume)Ordered By: Bobby Gallagher on 07-10-2021 ALP [Catalytic activity/Vol] 43 U/L 32-92 [facility] Serum or plasma aspartate am inotransferase measurement (enzymatic activity/volume)Ordered By: Bobby Gallagher on 07-10-2021 AST [Catalytic activity/Vol] 19 U/L 10-42 [facility] Serum or plasma calcium randi urement (mass/volume)Ordered By: Bobby Gallagher on 07-10-2021 Calcium [Mass/Vol] 9.0 mg/dL 8.2-10.2 [facility] Serum or plasma chloride melonie surement (moles/volume)Ordered By: Bobby Gallagher on 07-10-2021 Chloride [Moles/Vol] 103 mmol/L 95-114 [facility] Serum or plasma glucose randi urement (mass/volume)Ordered By: Bobby Gallagher on 07-10-2021 Glucose [Mass/Vol] 96 mg/dL 70-100 [facility] Comment on above: ADA recommended refe rence rangeRandom Glucose Reference Range is dependent on time and content of last meal. Glucose of more than 200 mg/dL in a nonstressed, ambulatory subject supports the diagnosis of Diabetes Mellitus. Serum or plasma potassium me asurement (moles/volume)Ordered By: Bobby Gallagher on 07-10-2021 Potassium [Moles/Vol] 3.4 mmol/L 3.5-5.1 [facility] Serum or plasma sodium measu rement (moles/volume)Ordered By: Bobby Gallagher on 07-10-2021 Sodium [Moles/Vol] 140 mmol/L 136-146 [facility] Serum or plasma total biliru bin measurement (mass/volume)Ordered By: Bobby Gallagher on 07-10-2021 Bilirubin [Mass/Vol] 0.6 mg/dL 0.3-1.2 [facility] Serum or plasma total carbon dioxide measurement (moles/volume)Ordered By: Bobby Gallagher on 07-10-2021 CO2 [Moles/Vol] 25.5 mmol/L 22.0-30.[address] [facility] Serum or plasma urea nitroge n measurement (mass/volume)Ordered By: Bobby Gallagher on 07-10-2021 Urea nitrogen [Mass/Vol] 6 mg/dL 9-23 [facility] Specific gravity Auto test s trip (U) [Rel density]Ordered By: Bobby Gallagher on 07-10-2021 Specific gravity (U) [Rel density] 1.007 1.001-1.03 0 [facility] Squamous epithelial cells de tection in urine sediment by light microscopyOrdered By: Bobby Gallagher on 07-10-2021 Epithelial cells.squamous LM Ql (Urine sed) 1-2 [HPF] [facility] Urine bacteria detection by automated methodOrdered By: Bobby Gallagher on 07-10-2021 Bacteria Auto Ql (U) 2+ None Seen [facility] Urine clarity by refractomet ry automatedOrdered By: Bobby Gallagher on 07-10-2021 Clarity Refractometry automated (U) Clear Clear [facility] Urine culture routineOrdered By: Bobby Gallagher on 07-10-2021 Bacteria identified Cx Nom (U) Escherichia coli [facility] Urine glucose measurement by automated test strip (mass/volume)Ordered By: Bobby Gallagher on 07-10-2021 Glucose Auto test strip (U) [Mass/Vol] Normal mg/dL Normal [facility] Urine hemoglobin detection b y automated test stripOrdered By: Bobby Gallagher on 07-10-2021 Hemoglobin Auto test strip Ql (U) 3+ Negative [facility] Urine leukocyte esterase det ection by automated test stripOrdered By: Bobby Gallagher on 07-10-2021 Leukocyte esterase Auto test strip Ql (U) 2+ Negative [facility] Urobilinogen Auto test strip (U) [Mass/Vol]Ordered By: oBbby Gallagher on 07-10-2021 Urobilinogen (U) [Mass/Vol] Normal mg/dL Normal [facility] pH Auto test strip (U)Ordere d By: Bobby Gallagher on 07-10-2021 pH (U) 7.5 [pH] 5.0-9.0 [facility] Keppraon 03-24-2021 KEPP 13 ug/mL Normal [facility] Comment on above: Result Comment: [...] toxicity is not known. Performed By: #### Cielo RON LAMO #### [facility] [place] [address] Body And Frame Man: Jhon Rios MD #### MG ELAN, CDP #### [facility] [address] [place] [address] Body And Frame Man: Jude Nieves DO Lamotrigineon 9 Lamotrigine <1.0 Low 3.0-15.0 [facility] Comment on above: Result Comment: [...] Performed By: #### Cielo RON LAMO #### [facility] [employer] [address] [place] [address] Body And Frame Man: Jhon Rios MD #### MG ELAN, CDP #### [facility] [address] [place] [address] Body And Frame Man: Jude Nieves DO CBC with Diffon 03-23-2021 Abs. Basophil 0.00 k/uL Normal 0.0-0.2 [facility] Comment on above: Performed By: #### Cielo RON LAMO #### [facility] [address] [place] [address] Body And Frame Man: Jhon Rios MD #### MG ELAN, CDP #### [facility] [address] [facility] [place] [address] Body And Frame Man: Jude Nieves DO Abs.Neutrophil (Seg) 4.60 k/uL Normal 1.3-9.1 [facility] Comment on above: Performed By: #### DYLON GOMEZ #### [address] [address] Body And Frame Man: Jhon Rios MD #### CP, MG, CDP #### [facility] [address] [place] [address] Body And Frame Man: Jude Nieves DO Basophils/100 WBC (Bld) 1 % Normal 0-2 [facility] Comment on above: Performed By: #### DYLON GOMEZ #### [address] [address] Body And Frame Man: Jhon Rios MD #### CP, MG, CDP #### [facility] [address] [place] [address] Body And Frame Man: Jude Nieves DO Eosinophils (Bld) [#/Vol] 0.10 10*3/uL Normal 0.0-0.4 [facility] Comment on above: Performed By: #### DYLON GOMEZ #### [address] [address] Body And Frame Man: Jhon Rios MD #### ELAN, MG, CDP #### [facility] [address] [place] [address] Body And Frame Man: Jude Nieves DO Eosinophils/100 WBC (Bld) 1 % Normal 0-4 [facility] Comment on above: Performed By: #### DYLON GOMEZ #### [address] [address] Body And Frame Man: Jhon Rios MD #### CP, MG, CDP #### [facility] [address] [place] [address] Body And Frame Man: Jude Nieves DO Erythrocyte distribution width (RBC) [Ratio] 12.4 % Normal 11.5-14.9 [facility] Comment on above: Performed By: #### DYLON GOMEZ #### [address] [address] Body And Frame Man: Jhon Rios MD #### ELAN, MG, CDP #### [facility] [address] [place] [address] Body And Frame Man: Jude Nieves DO Hematocrit (Bld) [Volume fraction] 43.3 % Normal 36-46 [facility] Comment on above: Performed By: #### DYLON GOMEZ #### [address] [address] Body And Frame Man: Jhon Rios MD #### ELAN MG, CDP #### [facility] [address] [place] [address] Body And Frame Man: Jude Nieves DO Hemoglobin (Bld) [Mass/Vol] 14.8 g/dL Normal 12.0-16.0 [facility] Comment on above: Performed By: #### DYLON GOMEZ #### [address] [address] Body And Frame Man: Jhon Rios MD #### MG ELAN, CDP #### [facility] [address] [place] [address] Body And Frame Man: Jude Nieves DO Lymphocytes (Bld) [#/Vol] 2.90 10*3/uL Normal 1.2-5.2 [facility] Comment on above: Performed By: #### DYLON GOMEZ #### [address] [address] Body And Frame Man: Jhon Rios MD #### ELAN, MG, CDP #### [facility] [address] [place] [address] Body And Frame Man: Jude Nieves DO Lymphocytes/100 WBC (Bld) 36 % Normal 25-45 [facility] Comment on above: Performed By: #### DYLON GOMEZ #### [address] [address] Body And Frame Man: Jhon Rios MD #### MG ELAN, CDP #### [facility] [address] [place] [address] Body And Frame Man: Jude Nieves DO MCH (RBC) [Entitic mass] 30.8 pg Normal 26-34 [facility] Comment on above: Performed By: #### DYLON GOMEZ #### [address] [address] Body And Frame Man: Jhon Rios MD #### MG ELAN, CDP #### [facility] [address] [place] [address] Body And Frame Man: Jude Nieves DO MCHC (RBC) [Mass/Vol] 34.1 g/dL Normal 31-37 [facility] Comment on above: Performed By: #### DYLON GOMEZ #### [address] [address] Body And Frame Man: Jhon Rios MD #### ELAN MG, CDP #### [facility] [address] [place] [address] Body And Frame Man: Jude Nieves DO MCV (RBC) [Entitic vol] 90.1 fL Normal 80-100 [facility] Comment on above: Performed By: #### DYLON GOMEZ #### [address] [address] Body And Frame Man: Jhon Rios MD #### MG ELAN, CDP #### [facility] [address] [place] [address] Body And Frame Man: Jude Nieves DO Monocytes (Bld) [#/Vol] 0.50 10*3/uL Normal 0.1-1.3 [facility] Comment on above: Performed By: #### DYLON GOMEZ #### [address] [address] Body And Frame Man: Jhon Rios MD #### ELAN MG, CDP #### [facility] [address] [place] [address] Body And Frame Man: Jude Nieves DO Monocytes/100 WBC (Bld) 6 % Normal 2-8 [facility] Comment on above: Performed By: #### DYLON GOMEZ #### [address] [address] Body And Frame Man: Jhon Rios MD #### ELAN MG, CDP #### [facility] [place] [address] Body And Frame Man: Jude Nieves DO Neutrophil (Seg) 56 % Normal 34-64 [facility] Comment on above: Performed By: #### DYLON GOMEZ #### [address] [address] Body And Frame Man: Jhon Rios MD #### ELAN MG, CDP #### [facility] [place] [address] Body And Frame Man: Jude Nieves DO Platelet mean volume (Bld) [Entitic vol] 7.4 fL Normal 6.0-12.0 [facility] Comment on above: Performed By: #### DYLON GOMEZ #### [address] [address] Body And Frame Man: Jhon Rios MD #### CP, MG, CDP #### [facility] [address] [facility] [place] [address] Body And Frame Man: Jude Nieves DO Platelets (Bld) [#/Vol] 279 10*3/uL Normal 150-450 [facility] Comment on above: Performed By: #### DYLON GOMEZ #### [address] [address] Body And Frame Man: Jhon Rios MD #### CP, MG, CDP #### [facility] [address] [place] [address] Body And Frame Man: Jude Nieves DO RBC (Bld) [#/Vol] 4.81 10*6/uL Normal 4.0-5.2 [facility] Comment on above: Performed By: #### DYLON GOMEZ #### [address] [address] Body And Frame Man: Jhon Rios MD #### ELAN, MG, CDP #### [facility] [address] [place] [address] Body And Frame Man: Jude Nieves DO WBC (Bld) [#/Vol] 8.1 10*3/uL Normal 4.5-13.5 [facility] Comment on above: Performed By: #### DYLON GOMEZ #### [address] [address] Body And Frame Man: Jhon Riso MD #### CP, MG, CDP #### [facility] [address] [place] [address] Body And Frame Man: Jude Nieves DO Abs.Imm.Granulocyte NOT REPORTED Normal 0.00-0.30 [facility] Comment on above: Performed By: #### DYLON GOMEZ #### [address] [address] Body And Frame Man: Jhon Rios MD #### CP, MG, CDP #### [facility] [address] [place] [address] Body And Frame Man: Jude Nieves DO Auto Diff Performed NOT REPORTED Normal [facility] Comment on above: Performed By: #### BERTO GOMEZO #### [facility] [address] [place] [address] Body And Frame Man: Jhon Rios MD #### CP, MG, CDP #### [facility] [address] [place] [address] Body And Frame Man: Jude Nieves DO Immature Granulocyte NOT REPORTED Normal 0 [facility] Comment on above: Performed By: #### K DYLON RON #### [address] [address] Body And Frame Man: Jhon Rios MD #### CP, MG, CDP #### [facility] [address] [place] [address] Body And Frame Man: Jude Nieves DO NRBC Automated NOT REPORTED Normal [facility] Comment on above: Performed By: #### Cielo RON LAMO #### [address] [address] Body And Frame Man: Jhon Rios MD #### CP, MG, CDP #### [facility] [address] [place] [address] Body And Frame Man: Jude Nieves DO Platelet Estimate NOT REPORTED Normal [facility] Comment on above: Performed By: #### K EPP, LAMO #### [facility] [address] [place] [address] Body And Frame Man: Jhon Rios MD #### CP, MG, CDP #### [facility] [address] [place] [address] Body And Frame Man: Jude Nieves DO RBC morphology finding Nom (Bld) NOT REPORTED Normal [facility] Comment on above: Performed By: #### Cielo RON, LAMO #### [place] [place] [address] Body And Frame Man: Jhon Rios MD #### ELAN, MG, CDP #### [facility] [address] [place] [address] Body And Frame Man: Jude Nieves DO WBC Morphology NOT REPORTED Normal [facility] Comment on above: Performed By: #### Cielo RON, DYLON #### [address] [address] Body And Frame Man: Jhon Rios MD #### ELAN MG, CDP #### [facility] [address] [place] [address] Body And Frame Man: Jude Nieves DO Comp Metabolic Profon 2020 (cont.) Normal [facility] Comment on above: Result Comment: Aver age GFR for <20 years old not available. Chronic Kidney Disease: <60 mL/min/1.73sq m Kidney failure: <15 mL/min/1.73sq m eGFR calculated using average adult body mass. Additional eGFR calculator available at: http://www.[email or web address]/multiple_crcl_2012.htm Performed By: #### DYLON GOMEZ #### [address] [address] Body And Frame Man: Jhon Rios MD #### ELAN, MG, CDP #### [facility] [address] [place] [address] Body And Frame Man: Jude Nieves DO Albumin [Mass/Vol] 4.6 g/dL Normal 3.5-5.2 [facility] Comment on above: Performed By: #### K ARIADNE, LAMO #### [facility] [address] [place] [address] Body And Frame Man: Jhon Rios MD #### MG ELAN, CDP #### [facility] [address] [place] [address] Body And Frame Man: Jude Nieves DO Alkaline Phos 67 U/L Normal 35-104 [facility] Comment on above: Performed By: #### K ARIADNE, LAMO #### [address] [place] [address] Body And Frame Man: Jhon Rios MD #### MG ELAN, CDP #### [facility] [address] [place] [address] Body And Frame Man: Jude Nieves DO ALT [Catalytic activity/Vol] 10 U/L Normal 5-33 [facility] Comment on above: Performed By: #### K ARIADNE LAMO #### [address] [address] Body And Frame Man: Jhon Rios MD #### MG ELAN, CDP #### [facility] [address] [place] [address] Body And Frame Man: Jude Nieves DO Anion gap [Moles/Vol] 10 mmol/L Normal 9-17 [facility] Comment on above: Performed By: #### K ARIADNE, LAMO #### [facility] [address] [place] [address] Body And Frame Man: Jhon Rios MD #### MG ELAN, CDP #### [facility] [address] [place] [address] Body And Frame Man: Jude Nieves DO AST [Catalytic activity/Vol] 12 U/L Normal <32 [facility] Comment on above: Performed By: #### K ARIADNE, LAMO #### [facility] [address] [place] [address] Body And Frame Man: Jhon Rios MD #### CP, MG, CDP #### [facility] [address] [place] [address] Body And Frame Man: Jude Nieves DO Bilirubin [Mass/Vol] 0.40 mg/dL Normal 0.3-1.2 [facility] Comment on above: Performed By: #### K ARIADNE LAMO #### [address] [address] Body And Frame Man: Jhon Rios MD #### ELAN, MG, CDP #### [facility] [address] [place] [address] Body And Frame Man: Jude Nieves DO Calcium [Mass/Vol] 9.3 mg/dL Normal 8.6-10.4 [facility] Comment on above: Performed By: #### BERTO GOMEZO #### [address] [address] Body And Frame Man: Jhon Rios MD #### ELAN, MG, CDP #### [facility] [address] [place] [address] Body And Frame Man: Jude Nieves DO Chloride [Moles/Vol] 101 mmol/L Normal 98-107 [facility] Comment on above: Performed By: #### Cielo RON LAMO #### [address] [address] Body And Frame Man: Jhon Rios MD #### CP, MG, CDP #### [facility] [address] [place] [address] Body And Frame Man: Jude Nieves DO CO2 [Moles/Vol] 25 mmol/L Normal 20-31 [facility] Comment on above: Performed By: #### DYLON GOMEZ #### [address] [address] Body And Frame Man: Jhon Rios MD #### CP, MG, CDP #### [facility] [address] [place] [address] Body And Frame Man: Jude Nieves DO Creatinine [Mass/Vol] 0.71 mg/dL Normal 0.50-0.90 [facility] Comment on above: Performed By: #### DYLON GOMEZ #### [address] [address] Body And Frame Man: Jhon Rios MD #### ELAN, MG, CDP #### [facility] [address] [place] [address] Body And Frame Man: Jude Nieves DO GFR,non Amer Pediatric GFR requi res additional information. Refer to NKDEP website for Normal >60 [facility] Comment on above: Result Comment: calc ulator. Performed By: #### DYLON GOMEZ #### [address] [address] Body And Frame Man: Jhon Rios MD #### CP, MG, CDP #### [facility] [address] [place] [address] Body And Frame Man: Jude Nieves DO Glucose [Mass/Vol] 90 mg/dL Normal 70-99 [facility] Comment on above: Performed By: #### DYLON GOMEZ #### [address] [address] Body And Frame Man: Jhon Rios MD #### CP, MG, CDP #### [facility] [address] [place] [address] Body And Frame Man: Jude Nieves DO Potassium [Moles/Vol] 3.8 mmol/L Normal 3.7-5.3 [facility] Comment on above: Performed By: #### DYLON GOMEZ #### [address] [address] Body And Frame Man: Jhon Rios MD #### MG ELAN, CDP #### [facility] [place] [address] Body And Frame Man: Jude Nieves DO Protein [Mass/Vol] 7.8 g/dL Normal 6.4-8.3 [facility] Comment on above: Performed By: #### DYLON GOMEZ #### [address] [address] Body And Frame Man: Jhon Rios MD #### MG ELAN, CDP #### [facility] [address] [place] [address] Body And Frame Man: Jude Nieves DO Sodium [Moles/Vol] 136 mmol/L Normal 135-144 [facility] Comment on above: Performed By: #### DYLON GOMEZ #### [address] [address] Body And Frame Man: Jhon Rios MD #### MG ELAN, CDP #### [facility] [address] [place] [address] Body And Frame Man: Jude Nieves DO Urea nitrogen [Mass/Vol] 11 mg/dL Normal 6-20 [facility] Comment on above: Performed By: #### DYLON GOMEZ #### [address] [address] Body And Frame Man: Jhon Rios MD #### ELAN MG, CDP #### [facility] [address] [place] [address] Body And Frame Man: Jude Nieves DO Albumin/Glob Ratio NOT REPORTED Normal 1.0-2.5 [facility] Comment on above: Performed By: #### DYLON GOMEZ #### [address] [address] Body And Frame Man: Jhon Rios MD #### CP, MG, CDP #### [facility] [address] [place] [address] Body And Frame Man: Jude Nieves DO BUN/CRE Ratio NOT REPORTED Normal 9-20 [facility] Comment on above: Performed By: #### DYLON GOMEZ #### [address] [address] Body And Frame Man: Jhon Rios MD #### CP, MG, CDP #### [facility] [address] [place] [address] Body And Frame Man: Jude Nieves DO GFR, Amer NOT REPORTED Normal >60 [facility] Comment on above: Performed By: #### DYLON GOMEZ #### [address] [address] Body And Frame Man: Jhon Rios MD #### CP, MG, CDP #### [facility] [address] [place] [address] Body And Frame Man: Jude Nieves DO Staging: NOT REPORTED Normal [facility] Comment on above: Performed By: #### DYLON GOMEZ #### [address] [address] Body And Frame Man: Jhon Rios MD #### CP, MG, CDP #### [facility] [place] [address] Body And Frame Man: Jude Nieves DO HCG, ,Urineon 03-23 Beta HCG ( test) Ql (U) Negative Normal NEG [facility] Comment on above: Result Comment: [...] suggested. Performed By: #### U HCG #### [facility] [address] [facility] [place] [address] Body And Frame Man: Jude Nieves DO Magnesiumon 03-23-2021 Magnesium [Mass/Vol] 2.2 mg/dL Normal 1.7-2.2 [facility] Comment on above: Performed By: #### K EPP, LAMO #### [facility] [address] [place] [id number] Body And Frame Man: Jhon Rios MD #### CP, MG, CDP #### [facility] [address] [facility] [place] [address] Body And Frame Man: Jude Nieves DO CONSULTATIONon 12-05-[address] [id number] CONSULTATION PATIENT NAME: BHAVNA KOVACS : 2000 MED REC NO: [id number] ROOM: 24 ACCOUNT NO: [id number] ADMIT DATE: 07/17/2017 PROVIDER: Nahun Martini CONSULT [...] is a patient who recently relocated from [place]. The patient has had normal EEGs in the past, was declared as having non-epileptic seizures. The patient is reported to have a neurologist who had counseled her on Lexapro and Xanax. The patient reported to the RN that she identifies as male. The patient was taken to [facility] ED, where she tested positive for THC. [...] grandmother. She tested positive for THC at [facility]. REVIEW OF SYSTEMS: No weight gain [...] any antiepileptic medications. NAHUN MARTINI MERLYN/Suha_SSNCK_I Doc#: [id number] CC: Normal [facility] Vital Signs Date Time Vital Sign Value Performing Clinician Facility 06-29-2024 16:32-0500 Body height 157.5 cm Debbie Mckeon MD Work Phone: [facility] 06-29-2024 16:32-0500 Body mass index (BMI) [Ratio] 17.92 kg/m2 Debbie Mckeon MD Work Phone: [facility] 06-29-2024 16:32-0500 Body weight 44.45 kg Debbie Mckeon MD Work Phone: [facility] 06-29-2024 16:32-0500 Diastolic blood pressure 78 mm[Hg] Debbie Mckeon MD Work Phone: [facility] 06-29-2024 16:32-0500 Heart rate 63 /min Debbie Mckeon MD Work Phone: [facility] 06-29-2024 16:32-0500 Systolic blood pressure 112 mm[Hg] Debbie Mckeon MD Work Phone: [facility] 05-21-2024 14:11-0500 Body height 157.5 cm Caleb Easton MD Work Phone: [facility] 05-21-2024 14:11-0500 Body mass index (BMI) [Ratio] 17.92 kg/m2 Caleb Easton MD Work Phone: [facility] 05-21-2024 14:11-0500 Body weight 44.45 kg Caleb Easton MD Work Phone: [facility] 05-21-2024 14:11-0500 Diastolic blood pressure 54 mm[Hg] Caleb Easton MD Work Phone: [facility] 05-21-2024 14:11-0500 Systolic blood pressure 92 mm[Hg] Caleb Easton MD Work Phone: [facility] 04-16-2024 15:10-0400 Body height 157.5 cm Gale Bassett CERTIFIED PERSONAL TRAINER.[employer] Work Phone: [facility] 04-16-2024 15:10-0400 Body mass index (BMI) [Ratio] 17.44 kg/m2 Gale Bassett CERTIFIED PERSONAL TRAINER.[employer]PER[employer] Work Phone: [facility] 04-16-2024 15:10-0400 Body weight 43.25 kg Gale Bassett CERTIFIED PERSONAL TRAINER.[employer] SUPER[employer]OR Work Phone: [facility] 04-16-2024 15:10-0400 Diastolic blood pressure 78 mm[Hg] Gale Chávezlin CERTIFIED PERSONAL TRAINER.[employer] SUPER[employer]OR Work Phone: [facility] 04-16-2024 15:10-0400 Heart rate 83 /min Gale Chávezlin CERTIFIED PERSONAL TRAINER.[employer] SUPERVISOR Work Phone: [facility] 04-16-2024 15:10-0400 Systolic blood pressure 120 mm[Hg] Gale Chávezlin CERTIFIED PERSONAL TRAINER.[employer] SUPERVISOR Work Phone: [facility] 04-02-2024 10:48-0400 Body height 157.48 cm [facility] 04-02-2024 10:48-0400 Body mass index (BMI) [Ratio] 18 kg/m2 [facility] 04-02-2024 10:48-0400 Body weight 44.7 kg [facility] 04-02-2024 10:48-0400 Diastolic blood pressure 72 mm[Hg] [facility] 04-02-2024 10:48-0400 Heart rate 64 /min [facility] 04-02-2024 10:48-0400 Systolic blood pressure 112 mm[Hg] [facility] 02-16-2024 10:44-0400 Body height 157.5 cm Caleb Easton MD Work Phone: [facility] 02-16-2024 10:44-0400 Body mass index (BMI) [Ratio] 18.11 kg/m2 Caleb Easton MD Work Phone: [facility] 02-16-2024 10:44-0400 Body weight 44.91 kg Caleb Easton MD Work Phone: [facility] 12-01-2023 20:12-0400 Heart rate 97 /min Aman Tapia MD Work Phone: [facility] 12-01-2023 20:12-0400 Respiratory rate 11 /min Aman Tapia MD Work Phone: [facility] 12-01-2023 20:12-0400 SaO2% (BldA) [Mass fraction] 99 % Aman Tapia MD [facility] Phone[facility] 12-01-2023 18:00-0400 Diastolic blood pressure 64 mm[Hg] Aman Tapia MD Work Phone: [facility] [employer] 12-01-2023 18:00-0400 Systolic blood pressure 104 mm[Hg] Aman Tapia MD Work Phone: [facility] 12-01-2023 16:22-0400 Body temperature 97.9 [degF] Aman Tapia MD Work Phone: [facility] 12-01-2023 16:19-0400 Body height 157.5 cm Aman Tapia MD Work Phone: [facility] 12-01-2023 16:19-0400 Body mass index (BMI) [Ratio] 17.19 kg/m2 Aman Tapia MD Work Phone: [facility] 12-01-2023 16:19-0400 Body weight 42.64 kg Aman Tapia MD Work Phone: [facility] 09-20-2023 11:27-0400 Body height 154.9 cm Sarah Rice APRN-INSIDE PLANT SUPERVISOR Work Phone: [facility] 09-20-2023 11:27-0400 Body mass index (BMI) [Ratio] 19.84 kg/m2 Sarah Rice APRN-INSIDE PLANT SUPERVISOR Work Phone: [facility] 09-20-2023 11:27-0400 Body weight 47.63 kg Sarah Rice APRN-INSIDE PLANT SUPERVISOR Work Phone: [place] [facility] 09-20-2023 11:27-0400 Diastolic blood pressure 76 mm[Hg] Sarah Rice APRN-INSIDE PLANT SUPERVISOR Work Phone: [facility] 09-20-2023 11:27-0400 Heart rate 74 /min Sarah Rice APRN-INSIDE PLANT SUPERVISOR Work Phone: [facility] 09-20-2023 11:27-0400 Systolic blood pressure 108 mm[Hg] Sarah Rice CERTIFIED PERSONAL TRAINER-INSIDE PLANT SUPERVISOR Work Phone: [facility] 09-19-2023 15:05-0400 Body height 154.9 cm Nette Lackey MD Work Phone: [facility] 09-19-2023 15:05-0400 Body mass index (BMI) [Ratio] 19.88 kg/m2 Nette Lackey MD Work Phone: [facility] 09-19-2023 15:05-0400 Body weight 47.72 kg Nette Lackey MD Work Phone: [facility] 09-19-2023 15:05-0400 Diastolic blood pressure 62 mm[Hg] Nette Lackey MD Work Phone: [facility] 09-19-2023 15:05-0400 Systolic blood pressure 104 mm[Hg] Nette Lackey MD Work Phone: [facility] 09-13-2023 10:06-0400 Body height 154.9 cm Nette Lackey MD Work Phone: [facility] 09-13-2023 10:06-0400 Body mass index (BMI) [Ratio] 20.97 kg/m2 Nette Lackey MD Work Phone: [facility] 09-13-2023 10:06-0400 Body weight 50.35 kg Nette Lackey MD Work Phone: [facility] 09-13-2023 10:06-0400 Diastolic blood pressure 78 mm[Hg] Nette Lackey MD Work Phone: [facility] 09-13-2023 10:06-0400 Systolic blood pressure 110 mm[Hg] Nette Lackey MD Work Phone: [facility] 09-07-2023 13:00-0400 Body height 154.9 cm Enriqueta OSMAN Work Phone: [facility] 09-07-2023 13:00-0400 Body mass index (BMI) [Ratio] 19.84 kg/m2 Enriqueta OSMAN Work Phone: [facility] 09-07-2023 13:00-0400 Body weight 47.63 kg Enriqueta OSMAN Work Phone: [facility] 09-07-2023 13:00-0400 Diastolic blood pressure 81 mm[Hg] Enriqueta OSMAN Work Phone: [facility] 09-07-2023 13:00-0400 Heart rate 73 /min Enriqueta OSMAN Work Phone: [facility] 09-07-2023 13:00-0400 Systolic blood pressure 117 mm[Hg] Enriqueta Tse PA Work Phone: [facility] 08-10-2023 12:52-0500 Body height 154.9 cm Lavonne Garnicai TECHNICIAN AUT[employer]ATED EQUIPMENT Work Phone: [facility] 08-10-2023 12:52-0500 Body mass index (BMI) [Ratio] 20.03 kg/m2 Lavonne Beltraniani TECHNICIAN [employer]ATED EQUIPMENT Work Phone: [facility] 08-10-2023 12:52-0500 Body weight 48.08 kg Lavonne Beltraniani TECHNICIAN AUT[employer]ATED [employer]QUIPMENT Work Phone: [facility] 08-10-2023 12:52-0500 Diastolic blood pressure 70 mm[Hg] Lavonne Beltraniani TECHNICIAN AUTOMATED EQUIPMENT Work Phone: [facility] 08-10-2023 12:52-0500 Systolic blood pressure 120 mm[Hg] Lavonne Beltraniani TECHNICIAN AUTOMATED EQUIPMENT Work Phone: [facility] 07-07-2023 11:19-0500 Body height 154.9 cm Enriqueta Tse PA Work Phone: [facility] 07-07-2023 11:19-0500 Diastolic blood pressure 59 mm[Hg] Enriqueta OSMAN Work Phone: [facility] 07-07-2023 11:19-0500 Heart rate 65 /min Enriqueta OSMAN Work Phone: [facility] 07-07-2023 11:19-0500 Systolic blood pressure 100 mm[Hg] Enriqueta OSMAN Work Phone: [facility] 05-12-2023 17:00-0500 Diastolic blood pressure 56 mm[Hg] DO Eric House Work Phone: [facility] 05-12-2023 17:00-0500 Heart rate 68 /min DO Eric House Work Phone: [facility] 05-12-2023 17:00-0500 Respiratory rate 16 /min DO Eric House Work Phone: [facility] 05-12-2023 17:00-0500 SaO2% (BldA) [Mass fraction] 98 % DO Eric House Work Phone: [facility] 05-12-2023 17:00-0500 Systolic blood pressure 107 mm[Hg] DO Eric House Work Phone: [facility] 05-12-2023 13:28-0500 Body height 154.94 cm DO Eric House Work Phone: [facility] 05-12-2023 13:28-0500 Body weight 48.1 kg DO Eric House Work Phone: [facility] 05-12-2023 13:27-0500 Body temperature 97.6 [degF] DO Eric House Work Phone: [facility] 04-12-2023 14:17-0400 Diastolic blood pressure 80 mm[Hg] DO Eric House Work Phone: [facility] 04-12-2023 14:17-0400 Heart rate 77 /min DO Eric House Work Phone: [facility] 04-12-2023 14:17-0400 Respiratory rate 16 /min DO Eric House Work Phone: [facility] 04-12-2023 14:17-0400 SaO2% (BldA) [Mass fraction] 99 % DO Eric House Work Phone: [facility] 04-12-2023 14:17-0400 Systolic blood pressure 121 mm[Hg] DO Eric House Work Phone: [facility] 04-12-2023 12:17-0400 Body height 154.94 cm DO Eric House Work Phone: [facility] 04-12-2023 12:17-0400 Body temperature 97.8 [degF] DO Eric House Work Phone: [facility] 04-12-2023 12:17-0400 Body weight 49 kg DO Eric House Work Phone: [facility] 03-23-2023 15:14-0400 Body temperature 98.3 [degF] DO Eric House Work Phone: [facility] 03-23-2023 15:14-0400 Diastolic blood pressure 68 mm[Hg] DO Eric House Work Phone: [facility] 03-23-2023 15:14-0400 Heart rate 66 /min DO Eric House Work Phone: [facility] 03-23-2023 15:14-0400 Respiratory rate 17 /min DO Eric House Work Phone: [facility] 03-23-2023 15:14-0400 SaO2% (BldA) [Mass fraction] 100 % DO Eric House Work Phone: [facility] 03-23-2023 15:14-0400 Systolic blood pressure 115 mm[Hg] DO Eric House Work Phone: [facility] 03-23-2023 12:38-0400 Body height 154.94 cm DO Eric House Work Phone: [facility] 03-23-2023 12:38-0400 Body weight 48.7 kg DO Eric House Work Phone: [facility] 03-11-2023 15:14-0400 Diastolic blood pressure 55 mm[Hg] DO Eric House Work Phone: [facility] 03-11-2023 15:14-0400 Heart rate 80 /min DO Eric House Work Phone: [facility] 03-11-2023 15:14-0400 Respiratory rate 18 /min DO Eric French Work Phone: [facility] 03-11-2023 15:14-0400 SaO2% (BldA) [Mass fraction] 100 % DO Eric French Work Phone: [facility] 03-11-2023 15:14-0400 Systolic blood pressure 95 mm[Hg] DO Eric House Work Phone: [facility] 03-11-2023 12:02-0400 Body height 162.56 cm DO Eric House Work Phone: [facility] 03-11-2023 12:02-0400 Body temperature 98.8 [degF] DO Eric French Work Phone: [facility] 03-11-2023 12:02-0400 Body weight 42.18 kg DO Eric French Work Phone: [facility] 02-06-2023 18:33-0400 Diastolic blood pressure 69 mm[Hg] Davidson KIM [employer] 02-06-2023 18:33-0400 Heart rate 88 /min Davidson Ortez MD [facility] 02-06-2023 18:33-0400 Respiratory rate 26 /min Davidson [facility]IM [facility] [place] [employer] 02-06-2023 18:33-0400 SaO2% (BldA) [Mass fraction] 99 % Davidson KIM [facility] 02-06-2023 18:33-0400 Systolic blood pressure 111 mm[Hg] Davidson Ray MD [facility] 02-06-2023 17:04-0400 Body height 154.9 cm Davidson Ortez MD [facility] 02-06-2023 17:04-0400 Body mass index (BMI) [Ratio] 18.33 kg/m2 Davidson Ortez MD [facility] 02-06-2023 17:04-0400 Body temperature 98.8 [degF] Davidson Ortez MD [facility] 02-06-2023 17:04-0400 Body weight 44 kg Davidson Ortez MD [facility] 09-13-2022 12:30-0400 Body temperature 97 [degF] DO UEIS Work Phone: [facility] 09-13-2022 12:00-0400 Diastolic blood pressure 76 mm[Hg] DO Eric House Work Phone: [facility] 09-13-2022 12:00-0400 Heart rate 68 /min DO UEIS Work Phone: [facility] 09-13-2022 12:00-0400 Respiratory rate 20 /min DO UEIS Work Phone: [facility] 09-13-2022 12:00-0400 SaO2% (BldA) [Mass fraction] 100 % DO Eric House Work Phone: [facility] 09-13-2022 12:00-0400 Systolic blood pressure 114 mm[Hg] DO Eric House Work Phone: [facility] 09-13-2022 10:41-0400 Body height 154.94 cm DO Eric House Work Phone: [facility] 09-13-2022 10:41-0400 Body weight 46.9 kg DO Eric House Work Phone: [facility] 08-30-2022 12:23-0500 Diastolic blood pressure 72 mm[Hg] DO Eric House Work Phone: [facility] 08-30-2022 12:23-0500 Heart rate 82 /min DO Eric House Work Phone: [facility] 08-30-2022 12:23-0500 Respiratory rate 16 /min DO Eric House Work Phone: [facility] 08-30-2022 12:23-0500 SaO2% (BldA) [Mass fraction] 100 % DO Eric House Work Phone: [facility] 08-30-2022 12:23-0500 Systolic blood pressure 114 mm[Hg] DO Eric House Work Phone: [facility] 08-30-2022 10:51-0500 Body height 154.94 cm DO Eric House Work Phone: [facility] 08-30-2022 10:51-0500 Body weight 50.1 kg DO Eric House Work Phone: [facility] 08-30-2022 10:50-0500 Body temperature 98.5 [degF] DO Eirc House Work Phone: [facility] 08-18-2022 13:04-0500 Diastolic blood pressure 62 mm[Hg] DO Eric House Work Phone: [facility] 08-18-2022 13:04-0500 Heart rate 68 /min DO Eric House Work Phone: [facility] 08-18-2022 13:04-0500 Respiratory rate 18 /min DO Eric House Work Phone: [facility] 08-18-2022 13:04-0500 SaO2% (BldA) [Mass fraction] 100 % DO Eric House Work Phone: [facility] 08-18-2022 13:04-0500 Systolic blood pressure 95 mm[Hg] DO Eric House Work Phone: [facility] 08-18-2022 11:09-0500 Body height 154.94 cm DO Eric House Work Phone: [facility] 08-18-2022 11:09-0500 Body temperature 97.8 [degF] DO Eric House Work Phone: [facility] 08-18-2022 11:09-0500 Body weight 46.6 kg DO Eric House Work Phone: [facility] 07-27-2022 13:11-0500 Body temperature 96.9 [degF] DO Los Tupa Work Phone: [facility] 07-27-2022 12:58-0500 Diastolic blood pressure 67 mm[Hg] DO Los Tupa Work Phone: [facility] 07-27-2022 12:58-0500 Heart rate 52 /min DO Los Tupa Work Phone: [facility] 07-27-2022 12:58-0500 Respiratory rate 18 /min DO Los Tupa Work Phone: [facility] 07-27-2022 12:58-0500 SaO2% (BldA) [Mass fraction] 100 % DO Los Tupa Work Phone: [facility] 07-27-2022 12:58-0500 Systolic blood pressure 111 mm[Hg] DO Los Tupa Work Phone: [facility] 07-27-2022 12:04-0500 Body height 154.94 cm DO Los Tupa Work Phone: [facility] 07-27-2022 12:04-0500 Body weight 47.2 kg DO Los Tupa Work Phone: [facility] 05-18-2022 12:29-0500 Body temperature 97.8 [degF] DO Tommy Jessi Work Phone: [facility] 05-18-2022 12:29-0500 Diastolic blood pressure 63 mm[Hg] DO Tommy Jessi Work Phone: [facility] 05-18-2022 12:29-0500 Heart rate 63 /min DO Tommy Jessi Work Phone: [facility] 05-18-2022 12:29-0500 Respiratory rate 18 /min DO Tommy Jessi Work Phone: [facility] 05-18-2022 12:29-0500 SaO2% (BldA) [Mass fraction] 100 % DO Tommy Jessi Work Phone: [facility] 05-18-2022 12:29-0500 Systolic blood pressure 103 mm[Hg] DO Tommy Jessi Work Phone: [facility] 05-18-2022 11:02-0500 Body height 175.26 cm DO Tommy Jessi Work Phone: [facility] 05-18-2022 11:02-0500 Body weight 48.08 kg DO Tommy Jessi Work Phone: [facility] 04-22-2022 13:59-0400 Diastolic blood pressure 74 mm[Hg] DO Tommy Jessi Work Phone: [facility] 04-22-2022 13:59-0400 Heart rate 59 /min DO Tommy Jessi Work Phone: [facility] 04-22-2022 13:59-0400 Respiratory rate 16 /min DO Tomym Jessi Work Phone: [facility] 04-22-2022 13:59-0400 SaO2% (BldA) [Mass fraction] 100 % DO Tommy Jessi Work Phone: [facility] 04-22-2022 13:59-0400 Systolic blood pressure 116 mm[Hg] DO Tommy Jessi Work Phone: [facility] 04-22-2022 10:58-0400 Body height 154.94 cm DO Tommy Jessi Work Phone: [facility] 04-22-2022 10:58-0400 Body temperature 97.1 [degF] DO Tommy Jessi Work Phone: [facility] 04-22-2022 10:58-0400 Body weight 49 kg DO Tommy Jessi Work Phone: [facility] 04-05-2022 13:19-0400 Diastolic blood pressure 74 mm[Hg] DO Tommy Jessi Work Phone: [facility] 04-05-2022 13:19-0400 Heart rate 74 /min DO Tommy Jessi Work Phone: [facility] 04-05-2022 13:19-0400 Respiratory rate 16 /min DO Tommy Jessi Work Phone: [facility] 04-05-2022 13:19-0400 SaO2% (BldA) [Mass fraction] 99 % DO Tommy Jessi Work Phone: [facility] 04-05-2022 13:19-0400 Systolic blood pressure 111 mm[Hg] DO Tommy Jessi Work Phone: [facility] 04-05-2022 10:33-0400 Body height 154.94 cm DO Tommy Jessi Work Phone: [facility] 04-05-2022 10:33-0400 Body temperature 97.1 [degF] DO Tommy Jessi Work Phone: [facility] 04-05-2022 10:33-0400 Body weight 51.9 kg DO Tommy Jessi Work Phone: [facility] 03-30-2022 12:51-0400 Diastolic blood pressure 71 mm[Hg] DO Tommy Jessi Work Phone: [facility] 03-30-2022 12:51-0400 Heart rate 81 /min DO Tommy Jessi Work Phone: [facility] 03-30-2022 12:51-0400 Respiratory rate 16 /min DO Tommy Jessi Work Phone: [facility] 03-30-2022 12:51-0400 SaO2% (BldA) [Mass fraction] 98 % DO Tommy Jessi Work Phone: [facility] 03-30-2022 12:51-0400 Systolic blood pressure 113 mm[Hg] DO Tommy Jessi Work Phone: [facility] 03-30-2022 12:07-0400 Body height 154.94 cm DO Tommy Jessi Work Phone: [facility] 03-30-2022 12:07-0400 Body weight 48.08 kg DO Tommy Jessi Work Phone: [facility] 03-30-2022 11:03-0400 Body temperature 97.7 [degF] DO Tommy Jessi Work Phone: [facility] 03-19-2022 12:02-0400 Diastolic blood pressure 66 mm[Hg] DO Tommy Jessi Work Phone: [facility] 03-19-2022 12:02-0400 Heart rate 61 /min DO Tommy Jessi Work Phone: [facility] 03-19-2022 12:02-0400 Respiratory rate 18 /min DO Tommy Jessi Work Phone: [facility] 03-19-2022 12:02-0400 SaO2% (BldA) [Mass fraction] 100 % DO Tommy Jessi Work Phone: [facility] 03-19-2022 12:02-0400 Systolic blood pressure 125 mm[Hg] DO Tommy Jessi Work Phone: [facility] 03-19-2022 11:03-0400 Body height 154.94 cm DO Tommy Jessi Work Phone: [facility] 03-19-2022 11:03-0400 Body temperature 97.3 [degF] DO Tommy Jessi Work Phone: [facility] 03-19-2022 11:03-0400 Body weight 53.5 kg DO Tommy Jessi Work Phone: [facility] 02-25-2022 12:00-0400 Diastolic blood pressure 63 mm[Hg] DO Tommy Jessi Work Phone: [facility] 02-25-2022 12:00-0400 Heart rate 71 /min DO Tommy Jessi Work Phone: [facility] 02-25-2022 12:00-0400 Respiratory rate 14 /min DO Tommy Jessi Work Phone: [facility] 02-25-2022 12:00-0400 SaO2% (BldA) [Mass fraction] 99 % DO Tommy Jessi Work Phone: [facility] 02-25-2022 12:00-0400 Systolic blood pressure 112 mm[Hg] DO Tommy Jessi Work Phone: [facility] 02-25-2022 11:07-0400 Body height 162.56 cm DO Tommy Jessi Work Phone: [facility] 02-25-2022 11:07-0400 Body temperature 98.4 [degF] DO Tommy Jessi Work Phone: [facility] 02-25-2022 11:07-0400 Body weight 50.2 kg DO Tommy Jessi Work Phone: [facility] 09-28-2021 13:35-0400 Diastolic blood pressure 73 mm[Hg] DO Eric House Work Phone: [facility] 09-28-2021 13:35-0400 Heart rate 71 /min DO Eric House Work Phone: [facility] 09-28-2021 13:35-0400 Respiratory rate 18 /min DO Eric House Work Phone: [facility] 09-28-2021 13:35-0400 SaO2% (BldA) [Mass fraction] 100 % DO Eric House Work Phone: [facility] 09-28-2021 13:35-0400 Systolic blood pressure 113 mm[Hg] DO Eric House Work Phone: [facility] 09-28-2021 11:40-0400 Body height 154.94 cm DO Eric House Work Phone: [facility] 09-28-2021 11:40-0400 Body mass index (BMI) [Ratio] 19.5 kg/m2 DO Eric House Work Phone: [facility] 09-28-2021 11:40-0400 Body temperature 98 [degF] DO Eric House Work Phone: [facility] 09-28-2021 11:40-0400 Body weight 47 kg DO Eric House Work Phone: [facility] 09-09-2021 13:05-0400 Diastolic blood pressure 65 mm[Hg] DO Eric House Work Phone: [facility] 09-09-2021 13:05-0400 Heart rate 81 /min DO Eric House Work Phone: [facility] 09-09-2021 13:05-0400 Respiratory rate 20 /min DO Eric House Work Phone: [facility] 09-09-2021 13:05-0400 SaO2% (BldA) [Mass fraction] 100 % DO Eric House Work Phone: [facility] 09-09-2021 13:05-0400 Systolic blood pressure 107 mm[Hg] DO Eric House Work Phone: [facility] 09-09-2021 11:12-0400 Body height 154.94 cm DO Eric House Work Phone: [facility] 09-09-2021 11:12-0400 Body mass index (BMI) [Ratio] 19.5 kg/m2 DO Eric House Work Phone: [facility] 09-09-2021 11:12-0400 Body weight 47 kg DO Eric House Work Phone: [facility] 09-09-2021 11:05-0400 Body temperature 97.8 [degF] DO Eric House Work Phone: [facility] 08-12-2021 14:30-0500 Diastolic blood pressure 60 mm[Hg] DO Eric House Work Phone: [facility] 08-12-2021 14:30-0500 Heart rate 68 /min DO Eric House Work Phone: [facility] 08-12-2021 14:30-0500 Respiratory rate 21 /min DO Eric House Work Phone: [facility] 08-12-2021 14:30-0500 SaO2% (BldA) [Mass fraction] 99 % DO Eric House Work Phone: [facility] 08-12-2021 14:30-0500 Systolic blood pressure 102 mm[Hg] DO Eric House Work Phone: [facility] 08-12-2021 10:45-0500 Body height 154.94 cm DO Eric House Work Phone: [facility] 08-12-2021 10:45-0500 Body mass index (BMI) [Ratio] 43.7 kg/m2 DO Eric House Work Phone: [facility] 08-12-2021 10:45-0500 Body weight 105.1 kg DO Eric House Work Phone: [facility] 08-12-2021 10:35-0500 Body temperature 97.5 [degF] DO Eric House Work Phone: [facility] 08-07-2021 12:50-0500 Diastolic blood pressure 74 mm[Hg] DO Eric House Work Phone: [facility] 08-07-2021 12:50-0500 Heart rate 91 /min DO Eric House Work Phone: [facility] 08-07-2021 12:50-0500 Respiratory rate 16 /min DO Eric House Work Phone: [facility] 08-07-2021 12:50-0500 SaO2% (BldA) [Mass fraction] 100 % DO Eric House Work Phone: [facility] 08-07-2021 12:50-0500 Systolic blood pressure 107 mm[Hg] DO Eric House Work Phone: [facility] 07-10-2021 12:55-0500 Diastolic blood pressure 72 mm[Hg] DO Eric House Work Phone: [facility] 07-10-2021 12:55-0500 Heart rate 58 /min DO Eric House Work Phone: [facility] 07-10-2021 12:55-0500 Respiratory rate 18 /min DO Eric House Work Phone: [facility] 07-10-2021 12:55-0500 SaO2% (BldA) [Mass fraction] 100 % DO Eric House Work Phone: [facility] 07-10-2021 12:55-0500 Systolic blood pressure 110 mm[Hg] DO Eric House Work Phone: [facility] 07-10-2021 10:57-0500 Body height 154.94 cm DO Eric House Work Phone: [facility] 07-10-2021 10:57-0500 Body mass index (BMI) [Ratio] 20.5 kg/m2 DO Eric House Work Phone: [facility] 07-10-2021 10:57-0500 Body temperature 97.5 [degF] DO Eric House Work Phone: [facility] 07-10-2021 10:57-5877 Body weight 49.4 kg DO Eric French Work Phone: [facility] Encounters Encounter Date Encounter Type Care Provider Facility Start: 07-04-2024 End: 07-04-2024 ambulatory ERIC FRENCH [facility] Start: 07-03-2024 End: 07-03-2024 Refill Caleb Easton MD Work Phone: [facility] [facility] Comment on above: 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 Start: 06-29-2024 End: 06-29-2024 Office outpatient visit 15 minutes Debbie Mckeno MD Work Phone: [facility] Comment on above: Right kidney stone ( Primary Dx); Epilepsy, 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CMS-HCC) Start: 06-29-2024 End: 06-29-2024 ambulatory DEBBIE MCKEON [facility] Start: 06-22-2024 End: 06-22-2024 ambulatory [facility] Start: 06-21-2024 End: 06-22-2024 Refill Gale Bassett APRN.INSIDE PLANT SUPERVISOR Work Phone: Endocrinology Comment on above: Refill Request Start: 06-18-2024 End: 06-18-2024 [facility] Gale Bassett CERTIFIED PERSONAL TRAINER.INSIDE PLANT SUPERVISOR Work Phone: Endocrinology Comment on above: Hypoglycemia (Primar y Dx); Mild protein-calorie malnutrition (HCC); Social anxiety disorder; Sensory food aversion; Vision changes; Low TSH level; Gender dysphoria; Night sweats; Hematuria, unspecified type; History of kidney stones Start: 06-13-2024 ambulatory [facility] Start: 06-12-2024 End: 06-12-2024 Refill Caleb Easton MD Work Phone: [facility] NE[facility]O 210 Comment on above: Intractable complex partial epilepsy (CMS/HCC); Focal epilepsy with impairment of consciousness, intractable (CMS/HCC); Epilepsy, 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CMS/HCC) Start: 06-12-2024 End: 06-12-2024 Telephone encounter Caleb Easton MD Work Phone: [facility] NEURO 210 Comment on above: Intractable chronic migraine without aura and without status migrainosus (CMS/HCC) (Primary Dx) Start: 06-08-2024 ambulatory [facility] Start: 06-05-2024 End: 06-05-2024 ambulatory [facility] Start: 05-28-2024 End: 05-28-2024 Telephone encounter Caleb Easton MD Work Phone: [facility] Start: 05-28-2024 ambulatory [facility] Start: 05-21-2024 End: 05-21-2024 Bamboo flowsheet Caleb Easton MD Work Phone: [facility] Start: 05-21-2024 End: 05-21-2024 Bamboo flowsheet Caleb Easton MD Work Phone: [facility] Start: 05-21-2024 End: 05-21-2024 Office outpatient visit 25 minutes Caleb Easton MD Work Phone: [facility] Comment on above: 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 (Primary Dx); Intractable chronic migraine without aura and without status migrainosus (CMS/HCC); Intractable complex partial epilepsy (CMS/HCC) Start: 05-18-2024 End: 05-18-2024 Telephone encounter Gale Bassett CERTIFIED PERSONAL TRAINER.INSIDE PLANT SUPERVISOR Work Phone: Endocrinology Comment on above: Question; dexcom 7 Start: 05-11-2024 End: 05-11-2024 ambulatory GALE BASSETT Facility:[facility] Start: 05-09-2024 ambulatory [facility] Start: 05-03-2024 End: 05-03-2024 Bamboo flowsheet Ainsley Graham MD Work Phone: [facility] Start: 05-03-2024 End: 05-03-2024 Bamboo flowsheet Ainsley Graham MD Work Phone: [facility] Start: 05-03-2024 End: 05-03-2024 Office outpatient visit 25 minutes Ainsley Graham MD Work Phone: [facility] Comment on above: Acne vulgaris (Prima ry Dx); Telogen effluvium Start: 05-01-2024 ambulatory [facility] Start: 04-30-2024 End: 04-30-2024 Social Work Basim Rgnoladawood SYSTEMS OPERATOR Work Phone: Endocrinology Start: 04-16-2024 End: 04-16-2024 ambulatory GALE BASSETT Facility:[facility] Start: 04-16-2024 End: 04-16-2024 Patient encounter procedure Gale Bassett CERTIFIED PERSONAL TRAINER.INSIDE PLANT SUPERVISOR Work Phone: Endocrinology Comment on above: Other specified diab etes mellitus with other specified complication, without long-term current use of insulin (HCC) (Primary Dx); Sensory food aversion; Abnormal weight loss; Anxiety disorder, unspecified type; Mild protein-calorie malnutrition (HCC); Low TSH level; Low weight; Psychogenic nonepileptic seizure Start: 04-02-2024 End: 04-02-2024 ambulatory [facility] Work Phone: Start: 04-02-2024 End: 04-02-2024 Patient encounter procedure [facility] Work Phone: Start: 03-27-2024 [facility] Start: 03-19-2024 End: 03-20-2024 Fawad Easton MD Work Phone: [facility] NE[facility]O 210 Comment on above: Intractable complex partial epilepsy (CMS/HCC); Focal epilepsy with impairment of consciousness, intractable (CMS/HCC); Epilepsy, 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CMS/HCC) Start: 03-12-2024 ambulatory [facility] Start: 02-16-2024 End: 02-16-2024 Bamboo flowsheet Caleb Easton MD Work Phone: [facility] Start: 02-16-2024 End: 02-16-2024 Bamboo flowsheet Caleb Easton MD Work Phone: [facility] Start: 02-16-2024 Patient encounter status Caleb Easton MD Work Phone: [facility] Start: 02-16-2024 End: 02-16-2024 Office outpatient visit 25 minutes Caleb Easton MD Work Phone: [facility] Comment on above: 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; Insomnia due to medical condition; Seizure disorder (CMS/HCC); Primary insomnia Start: 02-07-2024 End: 02-07-2024 ambulatory [facility] Start: 02-04-2024 End: 02-05-2024 Emergency department patient visit [facility] Start: 02-04-2024 End: 02-04-2024 Emergency department patient visit ERIC Boland [facility] Start: 01-29-2024 Non-patient / Non-visit [facility] ER Work Phone: Start: 01-26-2024 ambulatory [facility] Start: 01-23-2024 End: 01-23-2024 ambulatory [facility] Start: 01-06-2024 End: 01-06-2024 Emergency department patient visit ERIC Boland [facility] Start: 01-05-2024 End: 01-05-2024 ambulatory DO ERIC FRENCH Facility:[facility] Start: 01-03-2024 End: 01-03-2024 [facility] Start: 12-28-2023 End: 12-28-2023 ambulatory [facility] Start: 12-21-2023 [facility] Start: 12-15-2023 End: 12-15-2023 ambulatory ERIC Boland CORSICANA Facility:[facility] Cli [facility]ise Start: 12-09-2023 End: 12-09-2023 ambulatory ERIC Boland [facility] Start: 12-09-2023 End: 12-09-2023 Subsequent hospital visit by physician Eric French Sr., DO Work Phone: [facility] Start: 12-08-2023 [facility] Start: 12-06-2023 End: 12-06-2023 ambulatory [facility] Start: 12-02-2023 End: 12-02-2023 ambulatory [facility] Start: 12-01-2023 End: 12-01-2023 Emergency department patient visit Aman Tapia MD Work Phone: [facility] Comment on above: Seizure-like activit y (HCC) (Primary Dx) Start: 12-01-2023 End: 12-01-2023 ambulatory JUDE PARRA [facility] Start: 12-01-2023 End: 12-01-2023 ambulatory [facility] Start: 11-29-2023 ambulatory AARON [facility] Start: 11-25-2023 ambulatory ERIC Boland [facility] Start: 11-24-2023 End: 11-30-2023 Evaluation and management of inpatient BEATA Waldron YUSUFROBERT [facility] Start: 11-16-2023 End: 11-16-2023 ambulatory [facility] Start: 11-15-2023 End: 11-15-2023 ambulatory [facility] Start: 10-24-2023 End: 10-24-2023 ambulatory ERIC Boland CORSICANA Facility:[facility] Start: 10-17-2023 End: 10-18-2023 ambulatory DEBBIE MCKEON [facility] Start: 10-17-2023 End: 10-17-2023 Evaluation and management of inpatient DEBBIE MCKEON [facility] Start: 10-12-2023 ambulatory ERIC Boland GILLIAN Facilit y:[facility] Start: 10-10-2023 Patient encounter status Debbie Mckeon MD Work Phone: [facility] Work Phone: Start: 10-10-2023 Encounter for other [facility]procedural examination [facility] Start: 10-10-2023 End: 10-12-2023 [facility] Start: 09-27-2023 End: 09-27-2023 Orders Only Nette Lackey MD Work Phone: [facility] Start: 09-23-2023 End: 09-23-2023 ambulatory [facility] Start: 09-20-2023 End: 09-20-2023 ambulatory [facility] Start: 09-20-2023 End: 09-20-2023 Office outpatient new 30 minutes [facility] CERTIFIED PERSONAL TRAINER-INSIDE PLANT SUPERVISOR Work Phone: [facility] Comment on above: Muscle spasm (Primar y Dx); Chronic bilateral low back pain with bilateral sciatica; Chronic bilateral low back pain, unspecified whether sciatica present Start: 09-19-2023 End: 09-19-2023 Patient encounter procedure Nette Lackey MD Work Phone: [facility] Comment on above: Encounter for initia l prescription of implantable subdermal contraceptive (Primary Dx) Start: 09-19-2023 End: 09-19-2023 ambulatory [facility] Start: 09-15-2023 Telephone encounter Enriqueta OSMAN Work Phone: [facility] Start: 09-13-2023 End: 09-13-2023 Office outpatient new 45 minutes Nette Lackey MD Work Phone: [facility] Comment on above: Irregular menstrual cycle (Primary Dx); Cyst of left ovary Start: 09-13-2023 End: 09-13-2023 ambulatory NETTE LACKEY [facility] Start: 09-12-2023 End: 09-12-2023 ambulatory ENRIQUETA TSE [facility] Start: 09-08-2023 ambulatory ERIC [facility] Start: 09-07-2023 End: 09-07-2023 Orders Only Swapna Srinivasankiko [facility] Comment on above: Low back pain, unspe cified back pain laterality, unspecified chronicity, unspecified whether sciatica present (Primary Dx) Neck pain (Primary D x) Start: 09-07-2023 End: 09-07-2023 Office outpatient visit 25 minutes Enriqueta Tse PA Work Phone: [facility] Comment on above: Right kidney stone ( Primary Dx); Chronic bilateral low back pain with bilateral sciatica; Cyst of left ovary; Gross hematuria Start: 08-26-2023 End: 08-26-2023 [facility] Start: 08-26-2023 End: 08-26-2023 [facility] Start: 08-26-2023 End: 08-26-2023 Evaluation and management of inpatient [facility] Start: 08-26-2023 End: 08-26-2023 Evaluation and management of inpatient [facility] Start: 08-26-2023 End: 08-26-2023 Evaluation and management of inpatient ÁNGEL POPE [facility] Start: 08-25-2023 End: 08-26-2023 ambulatory SHAWNEE MCDONALDKHATIB [facility] Start: 08-25-2023 End: 08-26-2023 Emergency department patient visit [facility] Start: 08-25-2023 End: 08-25-2023 ambulatory ERIC [facility] Start: 08-24-2023 Evaluation and management of inpatient DEO GONGORA [facility] Start: 08-16-2023 Telephone encounter Enriqueta OSMAN [facility] Start: 08-10-2023 End: 08-10-2023 Office outpatient visit 25 minutes Lavonne Davies TECHNICIAN AUTOMATED EQUIPMENT Work Phone: [facility] Comment on above: Intractable complex partial epilepsy (CMS/HCC) (Primary Dx); Cervical radiculopathy; Insomnia due to medical condition; Migraine without aura and without status migrainosus, not intractable (CMS/HCC); Memory loss; Neck pain; Cervical paraspinal muscle spasm Start: 08-03-2023 End: 08-03-2023 ambulatory AARON [facility] Start: 08-02-2023 Telephone encounter Enriqueta OSMAN [facility] Start: 07-28-2023 End: 07-28-2023 Emergency department patient visit [facility] Start: 07-26-2023 End: 07-26-2023 ambulatory ENRIQUETA I [facility] Start: 07-22-2023 End: 07-22-2023 ambulatory ENRIQUETA TSE [facility] Start: 07-07-2023 End: 07-07-2023 Office outpatient visit 25 minutes Enriqueta OSMAN Work Phone: [facility] Comment on above: Right kidney stone ( Primary Dx) Start: 05-12-2023 End: 05-12-2023 Emergency department patient visit DO Eric Gradible (formerly gradsavers) Work Phone: [facility] Work Phone: Start: 04-12-2023 End: 04-12-2023 Emergency department patient visit DO Eric French Work Phone: [facility] Work Phone: Start: 03-23-2023 End: 03-23-2023 Emergency department patient visit DO Eric French Work Phone: [facility] Work Phone: Start: 03-11-2023 End: 03-11-2023 Emergency department patient visit DO Eric French Work Phone: [facility] Work Phone: Start: 02-06-2023 End: 02-06-2023 Emergency department patient visit ERIC FRENCH [facility] Start: 02-06-2023 End: 02-06-2023 Emergency department patient visit Davidson Ortez MD [facility] ED Comment on above: Seizure (HCC) Start: 09-23-2022 End: 09-24-[address] ERIC FRENCH Facility:[facility] Start: 09-13-2022 End: 09-13-2022 Emergency department patient visit DO Eric French Work Phone: [facility] Work Phone: Start: 08-30-2022 End: 08-30-2022 Emergency department patient visit DO Eric French Work Phone: [facility] Work Phone: Start: 08-18-2022 End: 08-18-2022 Emergency department patient visit DO Eric French Work Phone: [facility] Work Phone: Start: 07-27-2022 End: 07-27-2022 Emergency department patient visit DO Los Mcnally Work Phone: [facility] Work Phone: Start: 06-12-2022 End: 06-13-[address] ERIC FRENCH Facility:[facility] Start: 05-24-2022 End: 05-24-[address] ERIC FRENCH Facility:[facility] Start: 05-18-2022 End: 05-18-2022 Emergency department patient visit DO Tommy Jessi Work Phone: [facility] Start: 05-15-2022 End: 05-15-[address] ERIC FRENCH Facility:[facility] Start: 04-22-2022 End: 04-22-2022 Emergency department patient visit DO Tommy Jessi Work Phone: [facility] Start: 04-05-2022 End: 04-05-2022 Emergency department patient visit DO Tommy Jessi Work Phone: [facility] Start: 03-30-2022 End: 03-30-2022 Emergency department patient visit DO Tommy Jessi Work Phone: [facility] Start: 03-19-2022 End: 03-19-2022 Emergency department patient visit DO Tommy Jessi Work Phone: [facility] Start: 02-25-2022 End: 02-25-2022 Emergency department patient visit DO Tommy Jessi Work Phone: [facility] Start: 01-03-2022 End: 01-03-[address] ERIC FRENCH Facility:[facility] Start: 11-29-2021 End: 11-29-[address] ERIC FRENCH Facility:[facility] Start: 10-16-2021 End: 10-16-[address] ERIC FRENCH Facility:[facility] Start: 09-28-2021 End: 09-28-2021 Emergency department patient visit DO Eric French Work Phone: [facility] Start: 09-09-2021 End: 09-09-2021 Emergency department patient visit DO Eric Gillian Work Phone: [facility] Start: 08-20-2021 ambulatory [facility] Provider Leila Peña rinology Comment on above: Invitation for [facility] study with Dr. Wheat Start: 08-20-2021 E-mail encounter fro m caregiver [facility] Provider [facility] Start: 08-18-2021 ambulatory DION WHITE Facility:[facility] Start: 08-12-2021 End: 08-12-2021 Emergency department patient visit DO Eric Gillian Work Phone: [facility] Start: 08-07-2021 End: 08-07-2021 Emergency department patient visit DO Eric French Work Phone: [facility] Start: 07-10-2021 End: 07-10-2021 Emergency department patient visit DO Eric French Work Phone: [facility] Start: 03-23-2021 End: 03-23-2021 Emergency department patient visit SR ERIC FRENCH [facility] Start: 07-20-2017 End: 07-20-2017 Emergency department patient visit ALEXA SAHA Facility:[facility] Procedures Date Procedure Procedure Detail Performing Clinician Start: 06-29-2024 Urnls dip stick/tablet rgnt auto w/o microscopy Debbie Mckeon MD Work Phone: Start: 06-29-2024 Follow-up visit Follow-up DEBBIE MCKEON Start: 04-16-2024 Hemoglobin A1c/Hemoglobin.total in Blood Gale Bassett CERTIFIED PERSONAL TRAINER.INSIDE PLANT SUPERVISOR Work Phone: Start: 12-09-2023 Basic metabolic panel calcium total Radha Remy MD Start: 12-01-2023 Ct cervical spine w/o contrast material Aman Tapia MD Work Phone: Start: 12-01-2023 Ct head/brain w/o contrast material Aman Tapia MD Work Phone: Start: 12-01-2023 Basic metabolic panel calcium total Aman Tapia MD Work Phone: Start: 11-25-2023 Adult depression screening assessment Debbie Mckeon MD Work Phone: Start: 09-19-2023 Urine test [...] of abdomen and pelvis without contrast DO UEIS Work Phone: Start: 02-06-2023 Ct head/brain w/o contrast material Davidson Ortez MD Start: 02-06-2023 End: 02-06-2023 Comprehensive metabolic panel Davidson Soto Start: 08-30-2022 Urine culture DO [facility] Work Phone: Start: 09-28-2021 Plain chest X-ray DO [facility] Work Phone: Start: 09-09-2021 Urine culture DO [facility] Work Phone: Start: 08-12-2021 Urine culture DO [facility] Work Phone: Start: 08-07-2021 Urine culture DO [facility] Work Phone: Start: 07-10-2021 Urine culture DO [facility] Work Phone: Start: 07-10-2021 CT of abdomen and pelvis without contrast DO [facility] Work Phone: Start: 12-05-2017 Electroencephalogram Urine culture DO Tommy Jessi Work Phone: Urine culture DO Tommy Jessi Work Phone: Plan of Treatment Date Care Activity Detail Author Start: 08-23-2033 Urine microalbumin profile DTaP,Tdap,Td Vaccine (2 - Td or Tdap) [facility] Start: 06-29-2025 Adult BMI Screening Adult BMI Screening [facility] Start: 06-29-2025 Tobacco Screening Tobacco Screening [facility] Start: 05-11-2025 Urine screening for protein Diabetes: Urine Protein Screening [facility] Start: 12-08-2024 Urine screening for protein Diabetes: Urine Protein Screening [facility] Start: 11-24-2024 Depression Screening Depression Screening [facility] Start: 09-22-2024 Tobacco Screening Tobacco Screening [facility] Start: 09-19-2024 Adult BMI Screening Adult BMI Screening [facility] Start: 09-19-2024 Tobacco Screening Tobacco Screening [facility] Start: 09-18-2024 Adult BMI Screening Adult BMI Screening [facility] Start: 09-18-2024 Tobacco Screening Tobacco Screening [facility] Start: 09-12-2024 Adult BMI Screening Adult BMI Screening [facility] Start: 09-12-2024 Tobacco Screening Tobacco Screening [facility] Start: 09-06-2024 Adult BMI Screening Adult BMI Screening [facility] Start: 09-06-2024 Subsequent hospital visit by physician 09/06/2024 11:04 AM EDT Hospital Encounter [facility] [address] [place] [address] Right kidney stone [facility] Comment on above: Right kidney stone Start: 08-25-2024 Depression Screening Depression Screening [facility] Start: 08-25-2024 Tobacco Screening Tobacco Screening [facility] Start: 08-20-2024 End: 08-20-2024 Patient encounter procedure 08/20/2024 2:20 PM EST Office Visit [facility] [address] [place] [address] Caleb Easton MD [address] [facility] [address] [address] [facility] Start: 07-28-2024 Adult BMI Screening Adult BMI Screening [facility] Start: 07-28-2024 Tobacco Screening Tobacco Screening [facility] Start: 07-27-2024 End: 07-27-2024 Patient encounter procedure 07/27/2024 8:30 AM EST Office Visit [facility] Ophthal[facility] [address] [facility] [place] [address] Nahun Gongora, OD [address] [facility] [place] [address] Mild protein-calorie malnutrition (HCC) [E44.1]; Vision changes [H53.9] Ophthalmology Comment on above: Mild protein-calorie malnutrition (HCC) [E44.1]; Vision changes [H53.9] Start: 07-19-2024 End: 07-19-2024 ambulatory 07/19/2024 9:00 AM EST Education Endocrinology [address] [place] [address] [place] [address] [place] [address] endo dietitian Endocrinology Comment on above: endo dietitian Start: 07-17-2024 Hemoglobin A1c measurement Diabetes: Hemoglobin A1C [facility] Start: 07-16-2024 End: 07-16-2024 Patient encounter procedure 07/16/2024 11:00 AM EST Office Visit [facility] Ophthalmology [address] [place], [place] [id number] Nahun Gognora OD [address] [place] [address] Mild protein-calorie malnutrition (HCC) [E44.1]; Vision changes [H53.9] Ophthalmology Comment on above: Mild protein-calorie malnutrition (HCC) [E44.1]; Vision changes [H53.9] Start: 07-07-2024 Tobacco Screening Tobacco Screening [facility] Start: 07-04-2024 End: 07-04-2024 Patient encounter procedure 07/04/2024 10:00 AM EST Appointment [facility] - Ultrasound [address] [place] [address] [facility] Start: 07-03-2024 End: 07-03-2024 Patient encounter procedure 07/03/2024 10:15 AM EST Office Visit [facility] [address] [place] [address] Ainsley Graham MD [address] [place] [address] [facility] Start: 06-29-2024 End: 06-29-2025 US Retroperitoneum Ultrasound retroperitoneal complete Imaging STAT Right kidney stone Expected: 06/29/2024, Expires: 06/29/2025 [facility] Work Phone: Comment on above: Expected: 06/29/2024, Expires: Start: 06-18-2024 End: 06-18-2024 Patient encounter procedure 06/18/2024 10:00 AM EST Office Visit Endocrinology [address] [place] [address] Gale Bassett, CERTIFIED PERSONAL TRAINER.INSIDE PLANT SUPERVISOR [address] [place] [address] F/U 2 months DM Endocrinology Comment on above: F/U 2 months DM Start: 05-21-2024 End: 05-21-2024 Patient encounter procedure 05/21/2024 1:20 PM EST Office Visit [facility] [address] [address] Caleb Easton MD [address] [facility] [address] [address] [facility] Start: 04-17-2024 End: 07-17-2024 25-hydroxyvitamin D3 [Mass/volume] in Serum or Plasma VITAMIN D 25 HYDROXY Lab Routine Other specified diabetes mellitus with other specified complication, without long-term current use of insulin (HCC) Expected: 04/17/2024, Expires: 07/17/2024 [facility] Comment on above: Expected: 04/17/2024, Expires: Start: 04-17-2024 End: 07-17-2024 Parathyrin.intact [Mass/volume] in Serum or Plasma PTH INTACT Lab Routine Other specified diabetes mellitus with other specified complication, without long-term current use of insulin (HCC) Low TSH level Expected: 04/17/2024, Expires: 07/17/2024 [facility] Comment on above: Expected: 04/17/2024, Expires: Start: 04-17-2024 End: 07-17-2024 Renal function 2000 panel - Serum or Plasma RENAL FUNCTION PANEL Lab Routine Other specified diabetes mellitus with other specified complication, without long-term current use of insulin (HCC) Expected: 04/17/2024, Expires: 07/17/2024 [facility] Comment on above: Expected: 04/17/2024, Expires: Start: 04-16-2024 End: 07-16-2024 C peptide [Mass/volume] in Serum or Plasma C-PEPTIDE BLD Lab Routine Other specified diabetes mellitus with other specified complication, without long-term current use of insulin (HCC) Expected: 04/16/2024, Expires: 07/16/2024 [facility] Comment on above: Expected: 04/16/2024, Expires: Start: 04-16-2024 End: 07-16-2024 Cobalamin (Vitamin B12) [Mass/volume] in Serum or Plasma VITAMIN B12 Lab Routine Other specified diabetes mellitus with other specified complication, without long-term current use of insulin (HCC) Mild protein-calorie malnutrition (HCC) Low weight Expected: 04/16/2024, Expires: 07/16/2024 [facility] Comment on above: Expected: 04/16/2024, Expires: Start: 04-16-2024 End: 07-16-2024 Fasting glucose [Mass/volume] in Serum or Plasma GLUCOSE, FASTING Lab Routine Other specified diabetes mellitus with other specified complication, without long-term current use of insulin (HCC) Expected: 04/16/2024, Expires: 07/16/2024 [facility] Comment on above: Expected: 04/16/2024, Expires: Start: 04-16-2024 End: 07-16-2024 Glutamate decarboxylase 65 Ab [Units/volume] in Serum GLUTAMIC AC DECARBOXYLASE AB Lab Routine Other specified diabetes mellitus with other specified complication, without long-term current use of insulin (HCC) Expected: 04/16/2024, Expires: 07/16/2024 [facility] Comment on above: Expected: 04/16/2024, Expires: Start: 04-16-2024 End: 07-16-2024 Insulin [Units/volume] in Serum or Plasma INSULIN ASSAY BLOOD Lab Routine Other specified diabetes mellitus with other specified complication, without long-term current use of insulin (HCC) Expected: 04/16/2024, Expires: 07/16/2024 [facility] Comment on above: Expected: 04/16/2024, Expires: Start: 04-16-2024 End: 07-16-2024 Microalbumin/Creatinine [Mass Ratio] in Urine ALBUMIN/CREATININE RATIO, URINE Lab Routine Other specified diabetes mellitus with other specified complication, without long-term current use of insulin (HCC) Expected: 04/16/2024, Expires: 07/16/2024 [facility] Comment on above: Expected: 04/16/2024, Expires: Start: 04-16-2024 End: 07-16-2024 Thyrotropin [Units/volume] in Serum or Plasma THYROID STIMULATING HORMONE Lab Routine Other specified diabetes mellitus with other specified complication, without long-term current use of insulin (HCC) Low TSH level Low weight Expected: 04/16/2024, Expires: 07/16/2024 [facility] Comment on above: Expected: 04/16/2024, Expires: Start: 04-02-2024 Patient referral [facility] Work Phone: Start: 02-26-2024 Covid-19 Vaccine ( season) Covid-19 Vaccine () [facility] Start: 02-26-2024 Influenza vaccination [facility] Start: 02-16-2024 End: 02-16-2024 Patient encounter procedure 02/16/2024 10:40 AM EDT Office Visit [facility] [address] [place] [address] Caleb Easton MD [address], [place] [address] Arrived [facility] Comment on above: Arrived Start: 01-26-2024 Influenza vaccination Flu vaccine (Season Ended) [facility] Start: 01-21-2024 Adult BMI Screening Adult BMI Screening [facility] Start: 11-15-2023 End: 11-15-2023 Patient encounter procedure 11/15/2023 12:30 PM EDT Office Visit [facility] [address] [place] [address] Sarah Rice, CERTIFIED PERSONAL TRAINER-INSIDE PLANT SUPERVISOR [address] [place] [address] [facility] Start: 11-15-2023 End: 11-15-2023 Patient encounter procedure 11/15/2023 11:15 AM EDT Office Visit [facility] [address] [place] [address] Debbie Mckeon MD [address] [place] [address] [facility] Start: 10-04-2023 End: 10-04-2023 Patient encounter procedure 10/04/2023 10:30 AM EDT Office Visit [facility] [address] [place] [id number] Nette Lackey MD [address] [facility] [address] [place] [address] [facility] Start: 09-23-2023 Subsequent hospital visit by physician 09/23/2023 1:00 PM EDT Hospital Encounter [facility] [address] [place] [id number] Nette Lackey MD [address] [address] [facility] Start: 09-22-2023 End: 09-22-2023 Patient encounter procedure 09/22/2023 11:00 AM EDT Office Visit [facility] [address] [place] [address] Lavonne Davies, TECHNICIAN AUTOMATED EQUIPMENT [address] [place] [address] [facility] Start: 09-20-2023 End: 09-20-2023 Patient encounter procedure [facility] Start: 09-19-2023 End: 09-19-2023 Patient encounter procedure 09/19/2023 3:15 PM EDT Procedure visit [facility] [address] [place] [address] Nette Lackey MD [address] [facility] [address] [place], [place] [id number] [facility] Start: 09-13-2023 End: 09-12-2024 US Pelvis transabdominal and transvaginal Ultrasound pelvic with transvaginal Imaging Routine Cyst of left ovary Expected: 09/13/2023, Expires: 09/12/2024 [facility] Work Phone: Comment on above: Expected: 09/13/2023, Expires: Start: 09-07-2023 End: 09-06-2024 XR Lumbar spine Views W flexion and W extension X-ray spine lumbar ap, lateral, flexion and extension only Imaging Routine Low back pain, unspecified back pain laterality, unspecified chronicity, unspecified whether sciatica present Expected: 09/07/2023, Expires: 09/06/2024 [facility] Work Phone: Comment on above: Expected: 09/07/2023, Expires: Start: 09-07-2023 End: 09-07-2023 Patient encounter procedure 09/07/2023 11:30 AM EDT Office Visit [facility] [address] [place] [address] [address] [facility] [place] [address] Enriqueta Tse PA [facility] [place] [address] [facility] Start: 08-10-2023 End: 08-10-2023 Patient encounter procedure 08/10/2023 10:15 AM EST Office Visit [facility] [address] [place] [address] [place] [place] [address] Enriqueta Tse PA [address] [place] [address] [facility] Start: 07-07-2023 End: 07-06-2024 US Retroperitoneum Ultrasound retroperitoneal complete Imaging Routine Right kidney stone Expected: 07/07/2023, Expires: 07/06/2024 [facility] Comment on above: Expected: 07/07/2023, Expires: 5 Start: 07-07-2023 End: 07-06-2024 XR Abdomen AP [facility] Work Phone: Comment on above: Expected: 07/07/2023, Expires: 5 Start: 03-23-2023 Lamotrigine measurement [facility] Start: 03-23-2023 Measurement of substance [facility] Start: 02-25-2023 Influenza vaccination Influenza Vaccine [facility] Start: 01-25-2023 Influenza vaccination Flu vaccine (#1) [facility] Start: 09-13-2022 Lamotrigine measurement [facility] Start: 09-13-2022 Measurement of substance [facility] Start: 08-18-2022 Measurement of substance [facility] Start: 2022 Screening for malignant neoplasm of cervix [facility] Start: 02-25-2022 Influenza vaccination INFLUENZA (#1) [facility] Start: 06-27-2021 DEPRESSION ASSESSMENT DEPRESSION ASSESSMENT [facility] Start: 2020 DTaP,Tdap and Td Vaccines (1 - Tdap) DTaP,Tdap and Td Vaccines (1 - Tdap) [facility] Start: 2020 DTaP/Tdap/Td vaccine (1 - Tdap) DTaP/Tdap/Td vaccine (1 - Tdap) [facility] Start: 2020 Hepatitis B Vaccine (1 of 3 - 19+ 3-dose series) Hepatitis B Vaccine (1 of 3 - 19+ 3-dose series) [facility] Start: 2020 Urine microalbumin profile DTAP,TDAP,TD (1 - Tdap) [facility] Start: 2019 Adult BMI Follow Up Plan Adult BMI Follow Up Plan [facility] Start: 2019 CHLAMYDIA SCREENING () CHLAMYDIA SCREENING () [facility] Start: 2019 Depression Screening Depression Screening [facility] Start: 2019 GC (GONORRHEA) SCREENING (24) GC (GONORRHEA) SCREENING () [facility] Start: 2019 HEPATITIS C SCREENING HEPATITIS C SCREENING [facility] Start: 2019 Hepatitis C screening [facility] Start: 2019 HIV SCREENING HIV SCREENING [facility] Start: 2019 HIV screening HIV Screening [facility] Start: 2019 Screening for Chlamydia trachomatis Chlamydia Screening () [facility] Start: 2017 Meningococcal B Vaccine: Consider Based On Risk (1 of 2 - Patient Seeks Protection) Meningococcal B Vaccine: Consider Based On Risk (1 of 2 - Patient Seeks Protection) [facility] Start: 2017 Screening for Chlamydia trachomatis Chlamydia/GC screen [facility] Start: 2016 HIV screening HIV screen [facility] Start: 2016 HPV Vaccine (1 - 3-dose series) HPV Vaccine (1 - 3-dose series) [facility] Start: 2015 PEDS TO ADULT TRANSITION ANNUAL ASSESSMENT PEDS TO ADULT TRANSITION ANNUAL ASSESSMENT [facility] Start: 2013 Depression Screen Depression Screen [facility] Start: 2013 Depression Screening Depression Screening [facility] Start: 2013 PEDS TO ADULT TRANSITION INITIAL DISCUSSION PEDS TO ADULT TRANSITION INITIAL DISCUSSION [facility] Start: 2012 HPV VACCINE (1 - 2-dose series) HPV VACCINE (1 - 2-dose series) [facility] Start: 2011 Glaucoma screening Diabetes: Retinopathy Screening [facility] Start: 2011 MENINGOCOCCAL B: Consider based on risk (1 of 2 - Risk Bexsero 2-dose series) MENINGOCOCCAL B: Consider based on risk (1 of 2 - Risk Bexsero 2-dose series) [facility] Start: 2002 Varicella vaccine (1 of 2 - 2-dose childhood series) Varicella vaccine (1 of 2 - 2-dose childhood series) [facility] Start: 2001 COVID-19 VACCINE (#1) COVID-19 VACCINE (#1) [facility] Start: 2001 Hemoglobin A1c measurement Diabetes: Hemoglobin A1C [facility] Start: 2001 HEPATITIS B (1 of 3 - 3-dose series) HEPATITIS B (1 of 3 - 3-dose series) [facility] Start: 2001 Hepatitis B vaccine (1 of 3 - 3-dose series) Hepatitis B vaccine (1 of 3 - 3-dose series) [facility] Start: 2001 Screening for Chlamydia trachomatis Chlamydia Screening [facility] Bacteria identified in Urine by Culture [facility] End: 09-06-2024 Cytology Cytology Pathology and Cytology Routine Gross hematuria 1 Occurrences starting 09/07/2023 until 09/06/2024 [facility] Comment on above: 1 Occurrences starting 09/07/2023 until 09/06/2024 Hemoglobin A1c/Hemoglobin.total in Blood HEMOGLOBIN A1C (POC) Lab Routine Other specified diabetes mellitus with other specified complication, without long-term current use of insulin (HCC) Ordered: 04/16/2024 [facility] Work Phone: Comment on above: Ordered: 04/16/2024 Patient Education [facility] Work Phone: Patient referral [facility] Work Phone: End: 07-07-2024 Urinalysis Urinalysis Lab Routine Right kidney stone PRN for 1 Occurrences starting 07/07/2023 until 07/07/2024 [facility] Comment on above: PRN for 1 Occurrences starting until 07/07/2024 End: 12-01-2023 Urinalysis Urinalysis Lab STAT One Time for 1 Occurrences starting 12/01/2023 until 12/01/2023 [facility] Comment on above: One Time for 1 Occurrences starting 11/2023 until 12/01/2023 End: 09-06-2024 Urovysion for bladder Urovysion for bladder Lab Routine Gross hematuria 1 Occurrences starting 09/07/2023 until 09/06/2024 [facility] Work Phone: Comment on above: 1 Occurrences starting 09/07/2023 until 09/06/2024 Immunizations Immunization Date Immunization Notes Care Provider [facility] 11-24-2022 pneumococcal polysaccharide vaccine, 23 valent Enriqueta OSMAN Work Phone: [facility] [facility] NEGATED: Highlighted row has not occurred!07-17-2017 influenza, injectable, quadrivalent, preservative free Davidson Ortez MD [facility] Payers Date Payer Category Payer Self-pay [id number] 2021 Medicaid (Managed Care) [employer] [id number] 2018 Medicaid [place] [employer] [id number] 2016 Medicaid [id number] 2003 Medicaid [id number]. [id number] 2001 Unknown [id number] 2.16.840.1.835952.3.579.2. 176 2001 Unknown [id number] 2.16.840.1.215317.3.579.2. 594 2001 Unknown [id number] 2.16.840.1.026868.3.579.2. 593 2001 Unknown [id number] 2.16.840.1.833788.3.579.2. 593 2001 Unknown [id number] 2.16.840.1.526259.3.579.2. 593 2001 Unknown [id number] 2.16.840.1.995910.3.579.2. 593 2001 Unknown [id number] 2.16.840.1.430462.3.579.2. 593 2001 Unknown [id number] 2.16.840.1.849909.3.579.2. 593 2001 Unknown [id number] 2.16.840.1.925370.3.579.2. 593 2001 Unknown [id number] 2.16.840.1.060409.3.579.2. 173 2001 Unknown [id number] 2.16.840.1.306383.3.579.2. 1286 2001 Unknown [id number] 2.16.840.1.213621.3.579.2. 177 2001 Unknown [id number] 2.16.840.1.749229.3.579.2. 177 2001 Unknown [id number] 2.16.840.1.685466.3.579.2. 177 2001 Unknown [id number] 2.16.840.1.617807.3.579.2. 177 2001 Unknown [id number] 2.16.840.1.352381.3.579.2. 177 2001 Unknown [id number] 2.16.840.1.348725.3.579.2. 1285 2001 Unknown [id number] 2.16.840.1.910170.3.579.2. 1285 2001 Unknown [id number] 2.16.840.1.809147.3.579.2. 1285 2001 Unknown [id number] 2.16.840.1.528114.3.579.2. 1285 2001 Unknown [id number] 2.16.840.1.628227.3.579.2. 1285 2001 Unknown [id number] 2.16.840.1.701303.3.579.2. 1285 2001 Unknown [id number] 2.16.840.1.765164.3.579.2. 1285 2001 Unknown [id number] 2.16.840.1.007448.3.579.2. 1285 2001 Unknown [id number] 2.16.840.1.485873.3.579.2. 1285 2001 Unknown [id number] 2.16.840.1.437469.3.579.2. 1285 2001 Unknown [id number] 2.16.840.1.966607.3.579.2. 1285 2001 Unknown [id number] 2.16.840.1.300509.3.579.2. 1285 2001 Unknown [id number] 2.16.840.1.453024.3.579.2. 1286 2001 Unknown [id number] 2.16.840.1.315643.3.579.2. 6 2001 Unknown [id number] 2.16.840.1.347937.3.579.2. 1285 2001 Unknown [id number] 2.16.840.1.734809.3.579.2. 1285 2001 Unknown [id number] 2.16.840.1.324473.3.579.2. 1285 2001 Unknown [id number] 2.16.840.1.027639.3.579.2. 1285 2001 Unknown [id number] 2.16.840.1.440969.3.579.2. 1285 2001 Unknown [id number] 2.16.840.1.369610.3.579.2. 1285 2001 Unknown [id number] 2.16.840.1.731698.3.579.2. 1285 2001 Unknown [id number] 2.16.840.1.574188.3.579.2. 1285 2001 Unknown [id number] 2.16.840.1.378560.3.579.2. 1285 2001 Unknown [id number] 2.16.840.1.568307.3.579.2. 1285 2001 Unknown [id number] 2.16.840.1.990369.3.579.2. 8 2001 Unknown [id number] 2.16.840.1.281510.3.579.2. 2001 Unknown [id number] 2.16.840.1.495519.3.579.2. 8 2001 Unknown [id number] 2.16.840.1.955627.3.579.2. 2001 Unknown [id number] 2.16.840.1.810868.3.579.2. 718 2001 Unknown [id number] 2.16.840.1.739589.3.579.2. 6 2001 Unknown [id number] 2.16.840.1.214595.3.579.2. 1285 2001 Unknown [id number] 2.16.840.1.713502.3.579.2. 1285 2001 Unknown [id number] 2.16.840.1.861090.3.579.2. 1285 2001 Unknown [id number] 2.16.840.1.216817.3.579.2. 1285 2001 Unknown [id number] 2.16.840.1.735538.3.579.2. 1285 2001 Unknown [id number] 2.16.840.1.872920.3.579.2. [facility] Unknown [id number] 2.16.840.1.632707.3.579.2. 1285 2001 Unknown [id number] 2.16.840.1.470923.3.579.2. 1285 2001 Unknown [id number] 2.16.840.1.693369.3.579.2. 1285 2001 Unknown [id number] 2.16.840.1.884227.3.579.2. 1285 2001 Unknown [id number] 2.16.840.1.466058.3.579.2. 128 2001 Unknown [id number] 2.16.840.1.612781.3.579.2. 1285 2001 Unknown [id number] 2.16.840.1.688605.3.579.2. 1286 1977 Unknown [id number] 2.16.840.1.870117.3.579.2. 647 1959 Unknown [id number] Unknown [id number] 2.16.840.1.539208.3.579.2. 531 Unknown [id number] 2.16.840.1.879128.3.579.2. 531 Unknown [id number] 2.16.840.1.213291.3.579.2. 531 Unknown [id number] 2.16.840.1.912077.3.579.2. 531 Social History Date Type Detail Facility Start: 09-28-2021 [facility] day smoker [facility] Start: 2001 Sex Assigned At Female F [facility] Start: 02-25-2022 End: 02-11-2023 Tobacco smoking status NHIS Never smoked tobacco (finding) [facility] Start: 03-29-2019 End: 02-11-2023 Tobacco use and exposure Smokeless tobacco non-user [facility] Start: 12-10-2020 End: 06-29-2024 Alcohol intake Ex-drinker (finding) [facility] Start: 03-23-2021 Alcohol intake Current non-dr media marketing manager of alcohol (finding) [facility] Start: 2001 Sex Assigned At Not on file B [facility] Start: 07-07-2023 End: 05-21-2024 History of Social function [facility] Start: 07-07-2023 End: 05-21-2024 Tobacco use panel [facility] Housing Instability Unknown [facility] Start: 10-12-2020 Gender identity Identifies as male gender (finding) [facility] Start: 08-10-2023 End: 05-21-2024 Alcohol intake Lifetime non-drinker (finding) [facility] Has the [employer], [employer] or water company threatened to shut off services in your home in past 12Mo No [facility] How often to you hav e a drink containing alcohol? Never [facility] Start: 04-02-2024 Tobacco [facility] Start: 09-04-2018 Gender identity [id number] transsexual (finding) [facility] Start: 09-04-2018 Sexual orientation Homosexual (findi ng) [facility] How often to you hav e a drink containing alcohol? Monthly or less [facility] How many standard drinks containing alcohol do you have on a typical day? 1 or 2 [facility] Start: 03-12-2020 Sex Female (finding) [facility] Medical Equipment Procedure Code Equipment Code Equipment Original Text Equipment Identifier Dates [id number], [id number], [id number] Start: 07-03-2020 Comment on above: For use to withdraw testosterone Q2wks For use with testost erone administration SQ Q2wks Goals Date Patient Goal Desired Activity /State Personal health goal Comment on above: Formatting of this n ote might be different from the original. Evaluation of progress towards goal: home with family, self care Personal health goal Comment on above: Formatting of this n ote might be different from the original. Evaluation of progress towards goal: Patients goal is to have a safe discharge. Clinical Notes 12-05-2019 to 07-03-2024 Telephone Encounter - Lavonne Davies NP - 07/03/2024 2:25 PM ESTTelephone Encounter - Lavonne Davies NP - 07/03/2024 2:25 PM Muna Mckeon MD - 06/29/2024 4:45 PM ESTAttachments Note Date & Type Note Facility 07-03-2024 Telephone encounter Note OARRS reviewed. [facility] 07-03-2024 Miscellaneous Notes OARRS reviewed. documented in this encounter [facility] 06-29-2024 History of Present illness Narrative Images from the original note were not included. [address] [facility] [address] Patient: Bhavna Kovacs Date of : 2000 Encounter Date: 06/29/2024 History of Present Illness: Chief Complaint: follow up The patient is a 24 y.o. adult, an established patient, and is here for kidney stones. Had hematuria starting about 2 weeks ago went to the ER had KUB which was not definitive. Also having it is right-sided flank pain nausea and burning with urination. Does have issues with recurrent urinary tract infections as well as diabetes. Minimizing sodium and staying hydrated. Summary of old records: none Urinalysis today: Recent Labs 06/29/24 1632 EXTPOCURBS Negative EXTPOCUKET Negative EXTPOCUPRO Negative EXTPOCUNIT Negative EXTPOCUBLD Trace EXTPOCUPH 8.5 EXTPOCULEE Negative Last BUN and creatinine: Lab Results Component Value Date BUN 10 02/04/2024 Lab Results Component Value Date CREATININE 0.88 02/04/2024 Last PSA: No results found for: PSA No results found for: PROSTATICSP Additional Lab/Culture results: None Imaging Reviewed during this Office Visit: None (Results were independently reviewed by physician and radiology report verified) Past Medical, Family, and Social History Update: The following portions of the patient's history were reviewed and updated as appropriate: allergies, current medications, past family history, past medical history, past social history, past surgical history and problem list. Past Medical History: Diagnosis Date ADHD (attention deficit hyperactivity disorder) Anesthesia complication seizures- woke up having seizre after double mastectomy 2020 Anxiety Arrhythmia SVT Atrial enlargement, right Dental disease broken teeth Depression Diabetes mellitus type 2, controlled ([facility]) dx 2020 Dizziness Epilepsy ([facility]) dx 16 years old Fractures right thumb Gender dysphoria Head injury fell off skate board about 6 ft at age 15 y.o Headache Hematuria here for workup for pending cystoscopy History of renal calculi Implantable loop recorder present upper left chest Memory loss Nexplanon in place Orthostatic hypotension Panic disorder Rash acne on Ceftin as maintenance dose Seizures ([facility]) last seizure was 08/23/23 SVT (supraventricular tachycardia) ([facility]) Syncope 07/2023 Transgender Patient prefers to be called Yonatan Visual impairment Past Surgical History: Procedure Laterality Date BREAST SURGERY Bilateral 12/04/2020 mastectomy CYSTOSCOPY INSERTION STENT URETER Right 11/24/2021 Performed by Debbie Mckeon MD at [facility] CYSTOSCOPY REMOVAL STENT Right 12/09/2021 Performed by Debbie Mckeon MD at [facility] CYSTOSCOPY RETROGRADE PYELOGRAM Bilateral 10/17/2023 Performed by Debbie Mckeon MD at [facility] INSERTION LOOP RECORDER 08/03/2023 [facility] URETEROSCOPY RENAL STONES < OR=1CM Right 11/24/2021 Performed by Debbie Mckeon MD at [facility] Family History Problem Relation Age of Onset Cancer Paternal Grandmother bladder No Known Problems Father No Known Problems Mother Breast cancer Maternal Aunt Anesthesia problems Neg Hx Current Outpatient Medications Medication Sig Dispense Refill atomoxetine (STRATTERA) 25 mg capsule Take 1 capsule (25 mg total) by mouth in the morning. brivaracetam 100 mg tablet Take 100 mg by mouth in the morning and 100 mg before bedtime. ciclopirox (LOPROX) 1 % shampoo Apply 1 Application topically 2 (two) times a week. cloBAZam (ONFI) 10 mg tablet Take 1 tablet (10 mg total) by mouth in the morning. 1999. lamoTRIgine (LaMICtal) 100 mg tablet Take 1.5 tablets (150 mg total) by mouth in the morning and 1.5 tablets (150 mg total) before bedtime. metoprolol succinate XL (TOPROL XL) 25 mg 24 hr tablet Take 1 tablet (25 mg total) by mouth in the morning. midazolam (NAYZILAM) 5 mg/spray (0.1 mL) spray,non-aerosol Administer 5 mg into each nostril as needed (seizure activity). midodrine (PROAMATINE) 5 mg tablet Take 1 tablet (5 mg total) by mouth 3 (three) times a day Indications: a feeling of dizziness upon standing due to a drop in blood pressure. naproxen (NAPROSYN) 500 mg tablet Take 1 tablet (500 mg total) by mouth in the morning and 1 tablet (500 mg total) before bedtime. 60 tablet 3 ondansetron (ZOFRAN) 4 mg tablet Take 1 tablet (4 mg total) by mouth daily as needed for nausea or vomiting. 30 tablet 1 sertraline (ZOLOFT) 25 mg tablet Take 1 tablet (25 mg total) by mouth in the morning. tamsulosin (FLOMAX) 0.4 mg capsule Take 1 capsule (0.4 mg total) by mouth. tiZANidine (ZANAFLEX) 2 mg tablet Take 1 tablet (2 mg total) by mouth every 8 (eight) hours as needed for muscle spasms. 30 tablet 0 traZODone (DESYREL) 50 mg tablet Take 1 tablet (50 mg total) by mouth nightly. UBRELVY 100 mg tablet Take 1 tablet by mouth once as needed. mirabegron (MYRBETRIQ) 50 mg tablet extended release 24 hr Take 1 tablet (50 mg total) by mouth in the morning. 90 tablet 3 naproxen (NAPROSYN) 500 mg tablet Take 1 tablet (500 mg total) by mouth in the morning and 1 tablet (500 mg total) at noon and 1 tablet (500 mg total) in the evening. Take with meals. (Patient not taking: Reported on 06/29/2024) No current facility-administered medications for this visit. [...] and vomitting. -per HPI Physical Exam: BP 112/78 (BP Site: Left Arm, BP Postition: Sitting) Pulse 63 Ht 157.5 cm (5' 2 ) Wt 44.5 kg (98 lb) BMI 17.92 kg/m General: AAOx3 Psych: normal mood and affect HEENT normal Lungs: Respiratory effort normal Cardiovascular: Normal peripheral pulses Abdomen: Soft, non-tender, non-distended. No CVA TTP Skin: Warm and dry MSK: FROM Neuro: CN II-XII grossly intact Assessment and Plan: Yonatan was seen today for follow-up. Diagnoses and all orders for this visit: Right kidney stone - POCT Urinalysis Auto, W/O Microscopy - Ultrasound retroperitoneal complete; Future Epilepsy, 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CMS-HCC) Other orders - mirabegron (MYRBETRIQ) 50 mg tablet extended release 24 hr; Take 1 tablet (50 mg total) by mouth in the morning. Problem List Right kidney stone - Primary Overview 09/08/23: CT uploaded. He has 3 small stones in the left kidney and 4 small stones in the right. There is a calcification in the left hemipelvis which was not present in CT from 2021. This could be a distal stone. Will check US with focus on ureteral jets. 09/07/23: Report from CT without contrast 07/29/2023 states that there were bilateral nonobstructing stones. Will upload the films. Was having gross hematuria at the time of the CT. We will send urine for fish/cytology. Will refer to the spine care center for the back pain. Referral to speech language pathologist for the ovarian cyst. Previous ultrasound showed [...] p.o. intake, fevers, chills, worsening flank pain. Relevant Orders POCT Urinalysis Auto, W/O Microscopy (Completed) Ultrasound retroperitoneal complete Epilepsy, 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CMS-HCC) Follow-up: US, call with results Debbie Mckeon MD This note was created with the assistance of a speech recognition program. While intending to generate a timely document that accurately reflects the content of the visit, no guarantee can be provided that every grammatical or spelling mistake has been or will be identified or corrected. Thank you for your understanding. documented in this encounter [facility] 06-22-2024 Telephone encounter Note Metformin should be discontinued from med list at this time - not diabetic at this time - no elevated glucose levels noted on CGM. [facility] 06-22-2024 Miscellaneous Notes Metformin should be discontinued from med list at this time - not diabetic at this time - no elevated glucose levels noted on CGM. Requester: Pharmacy Patients last Endocrinology visit occurred 06/18/24. Follow-up evaluation has been established Upcoming Endocrinology Appointments - Next 365 Days Visit Type Date Time Department C[facility]SAR DIETITIAN VISIT 07/19/2024 9:00 AM [facility] . Requested Prescriptions Pending Prescriptions Disp Refills metFORMIN ER (GLUCOPHAGE XR) 500 mg 24 hr tablet [Pharmacy Med Name: metformin ER 500 mg tablet,extended release 24 hr] 180 tablet 2 Sig: TAKE 1 TABLET BY MOUTH TWICE DAILY WITH MEALS Creatinine Date Value Ref Range Status 05/11/2024 0.75 0.73 - 1.22 mg/dL Final If patient is due for an appointment please route to provider for refill consideration and also to the endo scheduling pool. PSS NOTE: Patient needs scheduled appointment No documented in this encounter [facility] 06-21-2024 Telephone encounter Note Requester: Pharmacy Patients last Endocrinology visit occurred 06/18/24. Follow-up evaluation has been established Upcoming Endocrinology Appointments - Next 365 Days Visit Type Date Time Department CÉSAR DIETITIAN VISIT 07/19/2024 9:00 AM [facility] . Requested Prescriptions Pending Prescriptions Disp Refills metFORMIN ER (GLUCOPHAGE XR) 500 mg 24 hr tablet [Pharmacy Med Name: metformin ER 500 mg tablet,extended release 24 hr] 180 tablet 2 Sig: TAKE 1 TABLET BY MOUTH TWICE DAILY WITH MEALS Creatinine Date Value Ref Range Status 05/11/2024 0.75 0.73 - 1.22 mg/dL Final If patient is due for an appointment please route to provider for refill consideration and also to the endo scheduling pool. PSS NOTE: Patient needs scheduled appointment No [facility] 06-18-2024 Telephone encounter Note Pt is scheduled on 07/27/24 and added to [facility] 06-18-2024 Miscellaneous Notes Pt is scheduled on 07/27/24 and added to [facility] documented in this encounter [facility] 06-18-2024 Note HNO ID: [id number] Author: PEDRO SANFORD MA Service: ? Author Type: Value Analyst Type: Progress Notes Filed: 06/18/2024 10:50 Note Text: [facility] 06-18-2024 History of Present illness Narrative Images from the original note were not included. DISTANCE HEALTH VISIT This visit is a virtual Video encounter. It required patient-provider interaction for the medical decision making as documented below. I have communicated my name and active licensure. The patient's identity and physical location were verified at the time of this visit. Either the patient or their legal agricultural sales representative has been informed of the risks and benefits of -- and alternatives to -- treatment through a remote evaluation and consents to proceed with the evaluation remotely. Endocrinology Follow Up Subjective History of Present Illness Bhavna Kovacs presents today for follow up of Type 2 Diabetes Mellitus. Gender: adult : 2000 Diagnosed with Type 2 Diabetes Mellitus 2019. Pertinent medical history of abnormal TSH, anxiety, PTSD. Hypoglycemia awareness: Good DM Complications: none Prior DM Medications: Metformin 2 tabs 2x daily Interval HPI: Last seen by endocrinology 04/16/2024. Restarted Metformin and started CGM for monitoring Stopped metformin about 1 month ago Night sweats - needing 2 showers/night Last seizure 4 mo ago - did not have night sweats at that time Trazodone, lamictal, clobazam all routine doses for several years Denies recent lab testing from neurology Diet remain restricted Psych discussion - will not follow up Getting low BG at night Blurry vision Waking up Will try to eat something or drink juice Pain with urination - history of recurrent kidney stones Blood in urine Current DM Regimen: na Glucose Monitoring: - Frequency of Monitorin or more times daily with CGM - Reports hypoglycemia. - Able to self treat: Yes 05/14/2024-05/27/2024 - Wide fluctuations in glucose: No Summary of personal CGM findings: Data download for most recent 14 days: CGM Type: [employer] G7 CGM recording adequate for interpretation: Yes Worn 98.5% of time. Coefficient of variation: 17.7% Interpretation: - Hyperglycemia no near elevated readings - Hypoglycemia intermittent and recurrent hypoglycemia Average glucose 90 mg/dL Time above range (BG > 180 mg/dL) 0% Time in range (BG 70-180 mg/dL) 95% Time below range (BG < 70 mg/dL) 5% Diet: Minimal appetite Texture aversion- reports worse than usual 1 meal per day - 3p - sandwich 1 snack at night - ice cream Drinking water and gatorade Physical Activity: Sedentary Review of Systems: Endo: Negative for increased thirst, polydipsia, polyuria Resp: Positive for shortness of breath and Negative for cough CV: Negative for chest pain, edema GI: Positive for abdominal pain and nausea and Negative for reflux, vomiting, and diarrhea Recent A1c Results: Hemoglobin A1C (POCT) (%) Date Value 04/16/2024 5.3 Diabetes Health Maintenance: Diabetic Foot and Retinal Eye Exam not Overdue Medications, Past History, Allergies Current Medications 06/17/2024 DIABETES THERAPIES Medication Dosage Pharm Subclass metFORMIN ER (GLUCOPHAGE XR) 500 mg 24 hr tablet Take 1 tablet by mouth two times a day with meals. Insulin Response Enhancers - Biguanides CARDIOVASCULAR Medication Dosage Pharm Subclass flecainide (TAMBOCOR) 100 mg tablet Take 1 tablet by mouth every 12 hours. Antiarrhythmic - Class Ic metoprolol succinate ER (TOPROL XL) 100 mg Take by mouth. Beta Blockers Cardiac Selective metoprolol tartrate, short acting, (LOPRESSOR) 25 mg tablet TAKE 1/2 (ONE-HALF) OF A TABLET BY MOUTH TWICE DAILY DIRECTED for 30 days Beta Blockers Cardiac Selective OTHER Medication Dosage Pharm Subclass atomoxetine (STRATTERA) 40 mg capsule Take 40 mg by mouth once daily. Attention Deficit-Hyperactivity Disorder (ADHD) Therapy, NRI-Type BD LUER-MARYLOU SYRINGE 1 mL syringe for use with testosterone injection SQ Q2wks Medical Supplies and DME - [place] and Syringes brivaracetam (BRIVIACT) 100 mg tablet Take 100 mg by mouth once daily. Anticonvulsant - Pyrrolidine Derivatives Ciclopirox 1 % sham lather on wet hair, leave on for 5 (FIVE) minutes, then rinse 2-3 times a week FOR 30 DAYS Dermatological - Antifungal Hydroxypyridinone Clindamycin Phosphate (CLEOCIN T) 1 % lotion Apply to face and back once daily/ 30 day supply Acne Therapy Topical - Anti-infective cloBAZam (ONFI) 10 mg tab tablet Take 10 mg by mouth once daily. Anticonvulsant - Benzodiazepines erenumab-aooe 140 mg/mL subcutaneous auto-injector (AIMOVIG) Inject 140 mg subcutaneously once every month. Migraine Therapy - CGRP Receptor Blockers (gepants and mAb) keTORolac (TORADOL) 10 mg tablet Take by mouth every 6 hours as needed. NSAID Analgesics (TOM Non-Specific) - Other lamoTRIgine (LAMICTAL) 25 mg tablet Take 100 mg by mouth twice daily. Anticonvulsant - Phenyltriazine Derivatives LORazepam (ATIVAN) 1 mg tablet Take 1 mg by mouth q 12 HR. Antianxiety Agent - Benzodiazepines midazolam (NAYZILAM) 5 mg/spray (0.1 mL) nasal spray Use 5 mg in the nose at bedtime as needed. Anticonvulsant - Benzodiazepines Needle, Disp, 18 G (BD DISPOSABLE NEEDLES) 18 gauge x 1 ndle For use to withdraw testosterone Q2wks [facility] Supplies [facility] DME - [place] and Syringes Needle, Disp, 23 G 23 gauge x 3/4 ndle For use with testosterone administration SQ Q2wks Medical Supplies and DME - [place] and Syringes ondansetron orally disintegrating (ZOFRAN ODT) 4 mg disintegrating tablet Take 4 mg by mouth three times a day as needed. Antiemetic - Selective Serotonin 5-HT3 Antagonists phenytoin ER (DILANTIN) 100 mg ER capsule Take 300 mg by mouth once daily. Anticonvulsant - Hydantoins senna-docusate (SENOKOT-S) 8.6-50 mg per tablet Take 2 tablets by mouth once daily. Laxative - Stimulant and Surfactant Combinations sertraline (ZOLOFT) 25 mg tablet Take 25 mg by mouth. Antidepressant - Selective Serotonin Reuptake Inhibitors (SSRIs) sertraline (ZOLOFT) 50 mg tablet Take 50 mg by mouth. Antidepressant - Selective Serotonin Reuptake Inhibitors (SSRIs) Sulfacetamide Sodium, Acne, 10 % susp Apply thin layer to face once daily, 30 day supply. Acne Therapy Topical - Anti-infective tiZANidine (ZANAFLEX) 2 mg tablet Take 2 mg by mouth three times a day as needed. Skeletal Muscle Relaxant - Central Muscle Relaxants traZODone (DESYREL) 100 mg tablet Take 100 mg by mouth. Antidepressant - Serotonin-2 Antagonist-Reuptake Inhibitors (SARIs) ubrogepant (UBRELVY) 100 mg tablet Take 1 tablet by mouth. Migraine Therapy - CGRP Receptor Blockers (gepants and mAb) PAST MEDICAL HISTORY Diagnosis Date Anxiety Depression Family history of epilepsy Gender dysphoria Panic attacks Seizures (HCC) pseudoseizures Traumatic brain injury (HCC) ALLERGIES Allergen Reactions Codeine Hives, Itching Objective Physical Examination VS: LMP 10/25/2020 (Approximate) General appearance: thin Lungs: respirations even, unlabored, and regular. Neuro: mental status intact, speech clear Previous Laboratory Results Glucose (mg/dL) Date Value 05/11/2024 86 12/05/2020 87 eGFR- (no units) Date Value 12/05/2020 >60 12/05/2019 >60 eGFR-All Other Races (.) Date Value 12/05/2020 >60 12/05/2019 >60 Estimated Glomerular Filtration Rate (mL/min/1.73m ) Date Value 05/11/2024 116 Creatinine Date Value Ref Range Status 05/11/2024 0.75 0.73 - 1.22 mg/dL Final 12/05/2020 0.60 0.58 - 0.96 mg/dL Final AST Date Value Ref Range Status 12/05/2019 14 13 - 35 U/L Final ALT Date Value Ref Range Status 12/05/2019 5 (L) 7 - 38 U/L Final Cholesterol, Total (mg/dL) Date Value 03/29/2019 154 HDL Cholesterol (mg/dL) Date Value 03/29/2019 51 LDL Cholesterol (mg/dL) Date Value 03/29/2019 82 Triglyceride (mg/dL) Date Value 03/29/2019 106 LDL:HDL Ratio (no units) Date Value 03/29/2019 1.61 Albumin/Creat Ratio (mg/g) Date Value 05/11/2024 <13 Creatinine, Ur Random (UCRR) (mg/dL) Date Value 05/11/2024 94.6 Impression / Recommendations Bhavna Kovacs is here for follow up of hypoglycemia with no complications. Hypoglycemia - A1c is at target (< 7%). - Time in range (>70%) is at goal. Patient is adherent with their CGM and their use of CGM improves evaluation and treatment of their hypoglycemia - Glycemic control is fair, similar to prior - low glucose detection likely related to limited food intake - discussed hypoglycemia signs and symptoms and how to treat - increase protein intake - recommend 1 protein drink per day - 1/2 in the morning and 1/2 in evening; recommend spoonful of peanut butter or similar concentrated protein that is palatable before bed to prevent hypoglycemia - consult DM education for further diabetes education on lifestyle modifications and increased foods that would help regulate low glucose levels Diabetes Plan: - discussed no current diabetes diagnosis - recommend follow up with Speech therapy (referral placed) to help with texture aversion and Flour Inspector (appt scheduled) to work with you for improved nutrition and help improve other health issues - Check glucose as needed if symptomatic of high / low glucose - Glucose targets: Fasting 80-130 mg/dL, before meals 80-130 mg/dL, 2 hours after meal <180 mg/dL, and bedtime <150 mg/dL. - Notify office for consistently elevated or any low glucose readings <70 mg/dL. - Bring meter and/or glucose readings to each appointment Follow up as needed Night sweats: - follow up with PCP and Neurologist - if not related to low glucose levels - possibly related to medications or other lab values that should be checked/monitored Hematuria History of kidney stones: Recommend to call Urology office - if unable to be started on medication treatment today - go to Urgent care as soon as possible - within the next 2 hours for exam, medications, order for US etc - advised early treatment will prevent jail complications and possible hospital admission Vision changes - recommended to see ophthalmology - referral placed Patient to continue to follow up with their PCP and with other specialists regarding their other medical problems. Any part of this document that has been added/copied & pasted from other documents has been reviewed for accuracy and updated as appropriate at the time of the patient encounter. I spent a total of 45 minutes on the date of the service which included preparing to see the patient, [id number] patient care, completing clinical documentation, obtaining and/or reviewing separately obtained history, performing a medically appropriate examination, counseling and educating the patient/family/caregiver, and ordering medications, tests, or procedures. Gale Bassett APRN.CNP Department of Endocrinology [facility] Answers submitted by the patient for this visit: Core Review of Systems (Submitted on 06/18/2024) Fever : No Night sweats: Yes Recent unintentional weight change: No Nasal Congestion: No Hearing Loss: No Vision Disturbance: Yes A cough: Yes Difficulty Breathing?: Yes Chest pain: No Irregular heartbeat: Yes Leg Swelling: No Nausea: No Diarrhea: No Black tarry stools: No Difficulty Urinating?: No Awaken at Night More Than Once to Urinate?: Yes Joint pain or stiffness: Yes Muscle aches: Yes Leg or Foot Discomfort at Night?: No A rash: No Dizziness: No Headaches: Yes Memory Loss: No Seizures: No documented in this encounter [facility] 06-18-2024 Note HNO ID: [id number] Author: GALE BASSETT APRN.CNP Service: ? Author Type: Nurse Practitioner Type: Progress Notes Filed: 06/18/2024 10:50 Note Text: DISTANCE HEALTH VISIT This visit is a virtual Video encounter. It required patient-provider interaction for the medical decision making as documented below. I have communicated my name and active licensure. The patient's identity and physical location were verified at the time of this visit. Either the patient or their legal agricultural sales representative has been informed of the risks and benefits of -- and alternatives to -- treatment through a remote evaluation and consents to proceed with the evaluation remotely. Endocrinology Follow Up Subjective History of Present Illness Bhavna Kovacs presents today for follow up of Type 2 Diabetes Mellitus. Gender: adult : 2000 Diagnosed with Type 2 Diabetes Mellitus 2019. Pertinent medical history of abnormal TSH, anxiety, PTSD. Hypoglycemia awareness: Good DM Complications: none Prior DM Medications: Metformin 2 tabs 2x daily Interval HPI: Last seen by endocrinology 04/16/2024. Restarted Metformin and started CGM for monitoring Stopped metformin about 1 month ago Night sweats - needing 2 showers/night Last seizure 4 mo ago - did not have night sweats at that time Trazodone, lamictal, clobazam all routine doses for several years Denies recent lab testing from neurology Diet remain restricted Psych discussion - will not follow up Getting low BG at night Blurry vision Waking up Will try to eat something or drink juice Pain with urination - history of recurrent kidney stones Blood in urine Current DM Regimen: na Glucose Monitoring: - Frequency of Monitorin or more times daily with CGM - Reports hypoglycemia. - Able to self treat: Yes 05/14/2024-05/27/2024 - Wide fluctuations in glucose: No Summary of personal CGM findings: Data download for most recent 14 days: CGM Type: [employer] G7 CGM recording adequate for interpretation: Yes Worn 98.5% of time. Coefficient of variation: 17.7% Interpretation: - Hyperglycemia no near elevated readings - Hypoglycemia intermittent and recurrent hypoglycemia Average glucose 90 mg/dL Time above range (BG > 180 mg/dL) 0% Time in range (BG 70-180 mg/dL) 95% Time below range (BG < 70 mg/dL) 5% Diet: Minimal appetite Texture aversion- reports worse than usual 1 meal per day - 3p - sandwich 1 snack at night - ice cream Drinking water and gatorade Physical Activity: Sedentary Review of Systems: Endo: Negative for increased thirst, polydipsia, polyuria Resp: Positive for shortness of breath and Negative for cough CV: Negative for chest pain, edema GI: Positive for abdominal pain and nausea and Negative for reflux, vomiting, and diarrhea Recent A1c Results: Hemoglobin A1C (POCT) (%) Date Value 04/16/2024 5.3 Diabetes Health Maintenance: Diabetic Foot and Retinal Eye Exam not Overdue Medications, Past History, Allergies Current Medications 06/17/2024 DIABETES THERAPIES Medication Dosage Pharm Subclass metFORMIN ER (GLUCOPHAGE XR) 500 mg 24 hr tablet Take 1 tablet by mouth two times a day with meals. Insulin Response Enhancers - Biguanides CARDIOVASCULAR Medication Dosage Pharm Subclass flecainide (TAMBOCOR) 100 mg tablet Take 1 tablet by mouth every 12 hours. Antiarrhythmic - Class Ic metoprolol succinate ER (TOPROL XL) 100 mg Take by mouth. Beta Blockers Cardiac Selective metoprolol tartrate, short acting, (LOPRESSOR) 25 mg tablet TAKE 1/2 (ONE-HALF) OF A TABLET BY MOUTH TWICE DAILY DIRECTED for 30 days Beta Blockers Cardiac Selective OTHER Medication Dosage Pharm Subclass atomoxetine (STRATTERA) 40 mg capsule Take 40 mg by mouth once daily. Attention Deficit-Hyperactivity Disorder (ADHD) Therapy, NRI-Type BD LUER-MARYLOU SYRINGE 1 mL syringe for use with testosterone injection SQ Q2wks Medical Supplies and DME - [place] and Syringes brivaracetam (BRIVIACT) 100 mg tablet Take 100 mg by mouth once daily. Anticonvulsant - Pyrrolidine Derivatives Ciclopirox 1 % sham lather on wet hair, leave on for 5 (FIVE) minutes, then rinse 2-3 times a week FOR 30 DAYS Dermatological - Antifungal Hydroxypyridinone Clindamycin Phosphate (CLEOCIN T) 1 % lotion Apply to face and back once daily/ 30 day supply Acne Therapy Topical - Anti-infective cloBAZam (ONFI) 10 mg tab tablet Take 10 mg by mouth once daily. Anticonvulsant - Benzodiazepines erenumab-aooe 140 mg/mL subcutaneous auto-injector (AIMOVIG) Inject 140 mg subcutaneously once every month. Migraine Therapy - CGRP Receptor Blockers (gepants and mAb) keTORolac (TORADOL) 10 mg tablet Take by mouth every 6 hours as needed. NSAID Analgesics (TOM Non-Specific) - Other lamoTRIgine (LAMICTAL) 25 mg tablet Take 100 mg by mouth twice daily. Anticonvulsant - Phenyltriazine Derivatives LORazepam (ATIV (more content not included)... [facility] 06-12-2024 Telephone encounter Note Patient called in to say he's having tingling, numbness, and extremely painful headaches. Please follow up with patient and advise. [facility] 06-12-2024 Miscellaneous Notes Patient called in to say he's having tingling, numbness, and extremely painful headaches. Please follow up with patient and advise. documented in this encounter [facility] 06-05-2024 Note Patient here for 4 m o follow up intermittent palpitations and positional lightheadedness. C/o chest pain and SOB. C/o night sweats and having to change his shirt several times during the night. C/o fatigue. Review of Systems Constitutional: Positive for malaise/fatigue and night sweats. Cardiovascular: Positive for chest pain and dyspnea on exertion. Respiratory: Positive for shortness of breath. Neurological: Positive for light-headedness and seizures (hx of). All other systems reviewed and are negative. [facility] 05-28-2024 Telephone encounter Note Patient called and states that [facility] in [place] is unable to fill the Focalin as they are currently out. Patient is wanting to know if this can be resent to [facility] in [place]. [phone] [facility] 05-28-2024 Miscellaneous Notes Patient called and states that [facility] in [place] is unable to fill the Focalin as they are currently out. Patient is wanting to know if this can be resent to [facility] in [place]. [phone] documented in this encounter [facility] 05-21-2024 History of Present illness Narrative Images from the original note were not included. CHIEF COMPLAINT REASON FOR VISIT: seizures, migraines, ADD HPI: Yonatan Kovacs is a 23 y.o. female who presents for a follow up. He did bring aimovig injection. He states Tuesday made 3 months he has been seizure free. He states the qelbree is not doing anything for him. He is wondering if he can try something else. Strattera was ineffective and higher dose of qelbree caused side effects such as nightmares. He states headaches have been pretty bad lately. He states that it lasts all day and usually does not go away. States he is not sleeping any better. Denies any passing out epiosdes. States he did have some blood work done and wants to ask Dr. Orantes about it. He needs refill of clobazam. Medications tried: tylenol, benadryl, aimovig, Ajovy, ubrelvy, ketorolac, tegretol, oxycodone, xanax, Depakote, phenytoin, cyproheptadine, alprazolam, dilantin, ativan, propranolol, lorazepam, lamotrigine, biotin, levetiracetam, sertraline, xcopri, sumatriptan, rizatriptan, naproxen, montelukast, metoprolol, dexamethasone, tizanidine, qelbee, Strattera, ibuprofen, briviact, lidocaine CURRENT MEDICATIONS: ALLERGIES/DISCONTINUE MEDICATIONS Current Outpatient Medications Medication Instructions atomoxetine (STRATTERA) 40 mg, Daily RT Briviact 100 MG tablet tablet TAKE 1 TABLET BY MOUTH TWICE DAILY (IN THE MORNING and BEFORE bedtime) Ciclopirox 1 % shampoo Lather on wet hair, leave on 5 min, rinse 2-3 x week, 30 day supply clindamycin (Cleocin T) 1 % lotion Apply to face and back once daily/ 30 day supply cloBAZam (ONFI) 10 mg, Oral, Nightly doxycycline (Monodox) 50 MG capsule Take 1 capsule, by mouth, once daily, 30 days flecainide (TAMBOCOR) 100 mg, 2 times daily ibuprofen 600 mg, Every 6 hours PRN lamoTRIgine (LAMICTAL) 200 mg, Oral, 2 times daily metFORMIN XR (GLUCOPHAGE-XR) 500 mg, 2 times daily with meals metoprolol succinate XL (TOPROL-XL) 12.5 mg, Daily Midazolam (Nayzilam) 5 MG/0.1ML solution 1 spray, Nasal, As needed midodrine (PROAMATINE) 5 mg, 3 times daily montelukast (SINGULAIR) 10 mg, Nightly naproxen (NAPROSYN) 500 mg, 3 times daily PRN ondansetron (ZOFRAN) 4 mg, Every 12 hours PRN ondansetron ODT (ZOFRAN-ODT) 4 mg, Every 8 hours PRN Senna-Time 8.6 MG tablet 2 tablets, 2 times daily Senokot S 8.6-50 MG tablet 2 tablets, Daily sertraline (ZOLOFT) 25 mg, Daily sertraline (ZOLOFT) 50 mg, Daily sulfacetamide suspension (Klaron) 10 % lotion topical Apply thin layer to face once daily, 30 day supply. tiZANidine (Zanaflex) 4 MG tablet Take 0.5 tablets (2 mg) by mouth at bedtime for 7 days, THEN 1 tablet (4 mg) at bedtime. traZODone (DESYREL) 200 mg, Oral, Nightly True Metrix Blood Glucose Test test strip USE TEST STRIP TO TEST BLOOD SUGAR EVERY DAY Ubrogepant (Ubrelvy) 100 MG tablet 1 tablet Allergies Allergen Reactions Codeine Hives and Itching Other Reaction(s): Hives Other Reaction(s): Not available Medications Discontinued During This Encounter Medication Reason erenumab (Aimovig) 140 MG/ML injection PAST MEDICAL HISTORY: SURGICAL/SOCIAL/FAMILY HISTORY DEPRESSION SCREEN: Past Medical History: Diagnosis Date Diabetes (CMS/HCC) Seizures (CMS/HCC) Past Surgical History: Procedure Laterality Date LOOP RECORDER IMPLANT Left MASTECTOMY Bilateral Social History Tobacco Use Smoking status: Never Smokeless tobacco: Never Vaping Use Vaping status: Never Used Substance Use Topics Alcohol use: Never Drug use: Yes Types: Marijuana Family History Problem Relation Name Age of Onset Cancer Other Melanoma Neg Hx Depression: Not at risk (11/25/2023) Received from [facility], [facility] PHQ-2 Total Score: 0 REVIEW OF SYMPTOMS: Review of Systems Constitutional: Negative for chills, diaphoresis, fatigue and fever. HENT: Negative for ear pain, tinnitus and trouble swallowing. Eyes: Negative for photophobia and visual disturbance. Respiratory: Negative for cough and shortness of breath. Cardiovascular: Negative for palpitations and leg swelling. Gastrointestinal: Negative for abdominal pain and nausea. Genitourinary: Negative for difficulty urinating and urgency. Musculoskeletal: Negative for arthralgias, back pain, myalgias, neck pain and neck stiffness. Neurological: Positive for headaches. Negative for tremors, weakness, light-headedness and numbness. Psychiatric/Behavioral: Negative for agitation, confusion and suicidal ideas. OBJECTIVE: 05/21/2024 2:11 PM 02/16/2024 10:44 AM 12/12/2023 11:40 AM Vitals BMI 17.92 kg/m2 18.11 kg/m2 16.9 kg/m2 BSA (m2) 1.4 m2 1.4 m2 1.35 m2 Systolic 92 92 Diastolic 54 54 Height (in) 5' 2 5' 2 5' 2 Weight (lb) 98 99 92.4 Visit Report Report Report Report EXAM: Neurological Exam Mental Status Awake, alert and [...] or fasciculations. Motor Normal muscle bulk throughout. Normal muscle tone. Right Left Wrist flexion 5 5 Wrist [...] reflexes: Aj's absent. Ankle clonus absent. Coordination [id number], rapid alternating movements and [id number] normal bilaterally without dysmetria. Gait Normal casual, toe, heel and tandem gait. Romberg is absent. PROCEDURE: NONE ASSESSMENT AND PLAN: Diagnoses and all orders for this visit: ADD (attention deficit disorder) without hyperactivity Discontinue viloxazine (qelbree) Start Focalin 5 mg Intractable chronic migraine without aura and without status migrainosus (CMS/HCC) Discontinue Aimovig. He was still having daily headaches despite being on it for quite some time. I will start fremanezumab (Ajovy) prefilled syringe 225 mg for migraine prevention. Sample provided today. Intractable complex partial epilepsy (CMS/HCC) Continue briviact 100 mg BID Continue lamotrigine 200 mg BID Nayzilam as needed He has been seizure free for 3 months. I counseled the patient on the possible side effects and interactions of medications. Total time 20-30 minutes spent reviewing records, performing medically appropriate exam, counseling , education, ordering medication, tests, and/or procedures, documenting health information into the health record, communicating results to the patient, and coordinating care. Follow up 3 months. documented in this encounter [facility] 05-18-2024 Telephone encounter Note Called and informed pt of below message. 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 Pedro Sanford MA [facility] 05-18-2024 Miscellaneous Notes Called and informed pt of below message. 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 Pedro Sanford MA Please discontinue metformin and come in for 2 more sensors - to see how you do off of the medication Images from the original note were not included. Full Dexcom report printed and placed on providers desk for review. Pt calls Seen 04-16-2024 Ov notes reviewed Asking if provider would like pt to stay on dexcom 7 He has applied the last disk to his arm Pharm on dial [facility]/ [place]re [place] documented in this encounter [facility] 05-18-2024 Telephone encounter Note Please discontinue metformin and come in for 2 more sensors - to see how you do off of the medication [facility] 05-18-2024 Telephone encounter Note Images from the original note were not included. Full Dexcom report printed and placed on providers desk for review. [facility] 05-18-2024 Telephone encounter Note Pt calls Seen 04-16-2024 Ov notes reviewed Asking if provider would like pt to stay on dexcom 7 He has applied the last disk to his arm Pharm on dial [facility]/ [place]re [place] [facility] 05-03-2024 History of Present illness Narrative Images from the original note were not included. Follow up Diagnosis: Acne Location: face and back Last visit: 09/2023 Symptoms: really bad on the side of the neck area Status: it got better using topicals, then started flaring and then re-started the ceftin Treatments tried and failed: Tretinoin 0.025% cream Current treatment: Clindamycin lotion, Klaron lotion, Ceftin 250 mg daily - per pt they re-started taking about 2 weeks ago (still causing nausea) Hair Loss Location: scalp Duration: about a year Severity: diffuse Associated factors: denies recent stressful event , denies pulling hair , denies rash on scalp; pt states they are losing weight and not sure why; started Metformin and needs to get labs drawn, was recently hospitalized Treatments used: Ciclopirox shampoo (pt dx with [facility] derm at last visit) All pertinent medical history, medications, and allergies were reviewed. General Exam: alert, oriented to person, place, and time, normal affect, well appearing Unaccompanied A focused exam completed based on patient reported problems, see below: 1. Acne vulgaris Head - Anterior (Face), Torso - Posterior (Back) Scattered comedones and inflammatory pustules. Flaring today Patient was counseled that this condition is chronic and can be controlled, but not cured. The patient was counseled that it may take up to 2-3 months to notice significant improvement of the acne. Continue topicals as prescribed. Discontinue Ceftin and start Doxycycline 50 mg daily. Recommend patient take medication with food but not dairy, sit up for 30 min after taking medication, wear sunscreen as this medication increases sun sensitivity, and discontinue medication and notify clinic if new headaches/vision changes or other side effects occur. Reports history of migraines which are currently well controlled. Related Medications sulfacetamide suspension (Klaron) 10 % lotion topical Apply thin layer to face once daily, 30 day supply. clindamycin (Cleocin T) 1 % lotion Apply to face and back once daily/ 30 day supply doxycycline (Monodox) 50 MG capsule Take 1 capsule, by mouth, once daily, 30 days 2. Telogen effluvium Scalp Diffuse, mildly thin hair on the scalp Likely induced by recent weight loss and poor nutrition. Patient reports already being scheduled to see a mice raiser to help work on diet. Discussed starting OTC rogaine if desired while waiting for hair regrowth. Can use a generic men's version, recommend the liquid over the foam for tolerance. Apply thin layer to scalp at bedtime, can rinse out in the morning if desired. Encouraged patient to discuss with PCP before starting given history of POTS, do not start unless cleared by PCP, stop if dizziness/lightheadedness occurs. Next Visit: 2 months documented in this encounter [facility] 04-30-2024 Note HNO ID: [id number] Author: BASIM STEARNS LSW Service: ? Author Type: Burner Machine Operator Type: Progress Notes Filed: 04/30/2024 12:34 Note Text: Endocrine Psychology Welcome Group Bhavna Goodrich Bethanie 2000 [phone] Date of Service: April 30, 2024 Patient advised of group visit and informed of privacy restrictions with group appointment. Patient instructed to be in a quiet, private area. Provided information for general psychology both within and outside the [facility]. This is appropriate for patients who experience mental health symptoms such as Depression, Anxiety, OCD, Bipolar disorder, etc. Discussed Endocrine Psychology resources for individuals who experience Night Eating, Binge Eating, Emotional Eating, Body Image, and Support for long-term weight management. Current Endocrine Psych Treatment consists of Individual and Group appointments. Informed patient on Endocrine dump worker services to assist with community resource management. Patient is cleared to schedule with Endocrine Psychology Services (individual appointments, group appointments, etc.) This appointment was conducted by: CHEYENNE Nicholas April 30, 2024 12:34 PM [facility] 04-30-2024 History of Present illness Narrative Endocrine Psychology Welcome Group Bhavna Kp Bethanie 2000 [phone] Date of Service: April 30, 2024 Patient advised of group visit and informed of privacy restrictions with group appointment. Patient instructed to be in a quiet, private area. Provided information for general psychology both within and outside the [facility]. This is appropriate for patients who experience mental health symptoms such as Depression, Anxiety, OCD, Bipolar disorder, etc. Discussed Endocrine Psychology resources for individuals who experience Night Eating, Binge Eating, Emotional Eating, Body Image, and Support for long-term weight management. Current Endocrine Psych Treatment consists of Individual and Group appointments. Informed patient on Endocrine dump worker services to assist with community resource management. Patient is cleared to schedule with Endocrine Psychology Services (individual appointments, group appointments, etc.) This appointment was conducted by: CHEYENNE Nicholas April 30, 2024 12:34 PM documented in this encounter [facility] 04-16-2024 Instructions Gale Bassett APRN.INSIDE PLANT SUPERVISOR - 04/16/2024 3:57 PM EDT We want you to try to increase frequency of eating as you can tolerate: Breakfast 2 snacks Dinner Snack We want you to try to see if you like more than one cereal - look for higher protein at (least 8 grams or more per serving ) - Special K or others Lunch meat Chicken nuggets - maybe look at more than 1 type Stirum - try a variety Little mica Protein Supplement: - Whey protein isolate (powder for mixing with milk, milk substitutes, or water) - best taken after exercise - Pre made ready to drink protein shakes: Examples: Evolve (plant based protein shake), OWYN (plant based protein shake), Orgain Clean Protein (also comes in powder) , [employer] Power Message me in 2 and 4 weeks so we can discuss next steps with diabetes documented in this encounter [facility] 04-16-2024 Nurse Note Last Eye Exam: thinks about a year ago Last Foot Exam: none Last A1C: 04/16/24 5.3% Not checking blood sugar regularly. [facility] 04-16-2024 Nurse Note Last Eye Exam: thinks about a year ago Last Foot Exam: none Last A1C: 04/16/24 5.3% Not checking blood sugar regularly. documented in this encounter [facility] 04-16-2024 History of Present illness Narrative Endocrinology Initial Diabetes Assessment Bhavna Kovacs is here for a consultation regarding: Diabetes My final recommendations will be communicated back to the requesting physician by way of shared Medical record or letter to requesting physician via [place] mail. PCP is Eric French Sr, DO Eric French Sr [id number] [place] [phone] Subjective History of Present Illness Bhavna Kovacs is a 23 year old adult who presents today for evaluation of Diabetes . Diagnosed with Diabetes 2020. Pertinent medical history of . History of DKA? No History of hypoglycemia requiring treatment from others / hospitalization? Having nausea, shaky, blurred vision, constipation Hypoglycemia awareness: Good - will eat something Waking up with glucose at 180-200 Recent weight changes: Yes -lost about 5# Vision changes: Yes Increased thirst: Yes Polydipsia: No Polyuria: Yes DM Complications: none Prior DM Medications: Metformin 2 tabs 2x/day Current DM Medications: Na Glucose Monitoring: - Frequency of Monitorin times daily - Reports hypoglycemia. - Able to self treat: Yes - BG Values: - Breakfast: 180-200 Dinner is usually around 6:30/7p 8p : did not eat - 60s and if has eaten - in 70s - Wide fluctuations in glucose: Yes, see range as above Physical Activity: Physically active with neoSurgicaling Diet: Breakfast: cereal - Krave with 2% milk Lunch: not eating Snack: chocolate Dinner: not hungry Snacks: 3am - chocolate Dessert: Beverages: water - 1 gallon or more Number of meals a day: 1 Number of snacks a day: 2 Prefer lunch meat, chicken nuggets, fries, some cereals with milk, drinking water Texture aversions, only likes a few things Had a seizure while trying to eat a Motzarella sticks - he is not really willing to try new foods right now Willing to try protein shakes Often not hungry Will not be hungry for very long periods then will eat 14 chicken nuggets or more Generally eats the same brand Does not eat vegetables at this time He is seeing neurology for seizures - 1st seizure at 16 yo - still getting worked up - and figuring out his medications Has not had a seizure in 2 months He is also to have testing for Autism/Autistic spectrum disorder Recent A1c Results: Hemoglobin A1C (POCT) (%) Date Value 04/16/2024 5.3 Diabetes Health Maintenance: Diabetic Foot and Retinal Eye Exam not Overdue Past History, Allergies, Medications Current Medications 04/13/2024 CARDIOVASCULAR Medication Dosage Pharm Subclass metoprolol succinate ER (TOPROL XL) 100 mg Take by mouth. Beta Blockers Cardiac Selective propranolol (INDERAL) 10 mg tablet Take 1 tablet by mouth three times daily. Beta Blockers Non-Cardiac Selective OTHER Medication Dosage Pharm Subclass BD LUER-MARYLOU SYRINGE 1 mL syringe for use with testosterone injection SQ Q2wks Medical Supplies and DME - [place] and Syringes lamoTRIgine (LAMICTAL) 25 mg tablet Take 100 mg by mouth twice daily. Anticonvulsant - Phenyltriazine Derivatives LORazepam (ATIVAN) 1 mg tablet Take 1 mg by mouth q 12 HR. Antianxiety Agent - Benzodiazepines Needle, Disp, 18 G (BD DISPOSABLE NEEDLES) 18 gauge x 1 ndle For use to withdraw testosterone Q2wks Medical Supplies and DME - [place] and Syringes Needle, Disp, 23 G 23 gauge x 3/4 ndle For use with testosterone administration SQ Q2wks Medical Supplies and DME - [place] and Syringes phenytoin ER (DILANTIN) 100 mg ER capsule Take 300 mg by mouth once daily. Anticonvulsant - Hydantoins testosterone cypionate (DEPO-TESTOSTERONE) 200 mg/mL injection INJECT 100 MG (0.5 ml) SQ Q2wks Androgen - Single Agents PAST MEDICAL HISTORY Diagnosis Date Anxiety Depression Family history of epilepsy Gender dysphoria Panic attacks Seizures (HCC) pseudoseizures Traumatic brain injury (HCC) PAST SURGICAL HISTORY Procedure Laterality Date NONE FAMILY HISTORY Problem Relation Age of Onset No Known Problems Mother other (overweight) Father No Known Problems Sister No Known Problems Brother Heart Maternal Grandmother valve replacement Heart Maternal Grandfather 48 No Known Problems Paternal Grandmother Diabetes Paternal Grandfather Hypertension Paternal Grandfather Lipids Paternal Grandfather Stroke Paternal Grandfather Heart Paternal Grandfather other (smokes) Paternal Grandfather No Known Problems Sister No Known Problems Brother Social History Tobacco Use Smoking status: Never Smokeless tobacco: Never Vaping Use Vaping status: Never Used Substance Use Topics Alcohol use: Not Currently Drug use: Not Currently Types: Marijuana ALLERGIES Allergen Reactions Codeine Hives, Itching Review of Systems Endocrine: Positive for increased thirst, polydipsia, polyuria Respiratory: Negative for shortness of breath Cardiovascular: Negative for chest pain, edema Gastrointestinal: Positive for abdominal pain, nausea, bloating, and constipation and Negative for reflux, vomiting, and diarrhea Neurologic: Negative for numbness, tingling, pain Objective Physical Examination VS: BP 120/78 Pulse 83 Ht 157.5 cm (5' 2 ) Wt 43.2 kg (95 lb 5.6 oz) LMP 10/25/2020 (Approximate) BMI 17.44 kg/m Last Visit: samanta Goldennes is here for follow up regarding: low TSH Is patient interested in MyChart? Patient uses it Patient is taking levothyroxin ? No History of CT scan with intravenous contrast within the last 4 months? No CC: aware of history of low TSH. Current Outpatient Medications Medication Sig Dispense Refill erenumab-aooe 140 mg/mL subcutaneous auto-injector (AIMOVIG) Inject 140 mg subcutaneously once every month. atomoxetine (STRATTERA) 40 mg capsule Take 40 mg by mouth once daily. brivaracetam (BRIVIACT) 100 mg tablet Take 100 mg by mouth once daily. Ciclopirox 1 % sham lather on wet hair, leave on for 5 (FIVE) minutes, then rinse 2-3 times a week FOR 30 DAYS Clindamycin Phosphate (CLEOCIN T) 1 % lotion Apply to face and back once daily/ 30 day supply cloBAZam (ONFI) 10 mg tab tablet Take 10 mg by mouth once daily. flecainide (TAMBOCOR) 100 mg tablet Take 1 tablet by mouth every 12 hours. keTORolac (TORADOL) 10 mg tablet Take by mouth every 6 hours as needed. midazolam (NAYZILAM) 5 mg/spray (0.1 mL) nasal spray Use 5 mg in the nose at bedtime as needed. ondansetron orally disintegrating (ZOFRAN ODT) 4 mg disintegrating tablet Take 4 mg by mouth three times a day as needed. senna-docusate (SENOKOT-S) 8.6-50 mg per tablet Take 2 tablets by mouth once daily. sertraline (ZOLOFT) 25 mg tablet Take 25 mg by mouth. sertraline (ZOLOFT) 50 mg tablet Take 50 mg by mouth. Sulfacetamide Sodium, Acne, 10 % susp Apply thin layer to face once daily, 30 day supply. tiZANidine (ZANAFLEX) 2 mg tablet Take 2 mg by mouth three times a day as needed. traZODone (DESYREL) 100 mg tablet Take 100 mg by mouth. ubrogepant (UBRELVY) 100 mg tablet Take 1 tablet by mouth. lamoTRIgine (LAMICTAL) 25 mg tablet Take 100 mg by mouth twice daily. LORazepam (ATIVAN) 1 mg tablet Take 1 mg by mouth q 12 HR. metoprolol succinate ER (TOPROL XL) 100 mg Take by mouth. metoprolol tartrate, short acting, (LOPRESSOR) 25 mg tablet TAKE 1/2 (ONE-HALF) OF A TABLET BY MOUTH TWICE DAILY DIRECTED for 30 days phenytoin ER (DILANTIN) 100 mg ER capsule Take 300 mg by mouth once daily. Needle, Disp, 18 G (BD DISPOSABLE NEEDLES) 18 gauge x 1 ndle For use to withdraw testosterone Q2wks 10 Each 5 BD LUER-MARYLOU SYRINGE 1 mL syringe for use with testosterone injection SQ Q2wks (Patient not taking: Reported on 04/16/2024) 10 Each 5 Needle, Disp, 23 G 23 gauge x 3/4 ndle For use with testosterone administration SQ Q2wks 10 Each 5 No current facility-administered medications for this visit. HPI: As above ROS: Energy: not so good Sleep: poor Moods :mood swings Eye symptoms: Yes blurred vision with blood sugar changes ; denies bulging or dry eye Dysphagia: No New neck lump: No Communication: Hearing: normal; Voice: normal Salivary Glands: Normal Dyspnea: No Cough: No Palpitations: No Tremor: No Temperature: no intolerance Weight change: Stable Change in bowel movements: No Past, social and family histories were reviewed and updated in the database No Physical exam: BP 120/78 Pulse 83 Ht 157.5 cm (5' 2 ) Wt 43.2 kg (95 lb 5.6 oz) LMP 10/25/2020 (Approximate) BMI 17.44 kg/m Body mass index is 17.44 kg/m . GENERAL: Well nourished, well hydrated, in no distress, and oriented x 3 Communication: Hearing: normal; Voice: normal EYES: no thyroid eye signs, [place], Fundi normal, and cornea normal NECK: no visible nodules or goiter, no bruit, no tenderness, and no adenopathies THYROID: smooth, non-tender, firm, and No palpable nodules EXTREMITIES: No clubbing, no edema, no cyanosis, and normal nails NEURO: normal strength, no tremor, and normal reflexes OTHER: Heart RRR with normal S1 and S2, no murmurs, no gallops, no JVD appreciated, Lungs clear to auscultation, and Abdomen bowel sounds normoactive, no bruits, soft, non-tender, non-distended, without organomegaly or palpable masses, no tenderness to palpation Previous laboratory results: TSH (uU/mL) Date Value 12/05/2019 0.500 Cytology (new information since last visit): Na Pathology (new information since last visit): Na Imaging (new information since last visit): Na Impression and recommendations: New: Patient is self referred to me for evaluation of low TSH. Will check TSH Will see him in follow up in 2 months. General appearance: well appearing, NAD, thin Eyes: EOM intact, sclera non-icteric Heart: RRR, S1, S2 Lungs: respirations even, unlabored, and regular. CTA bilaterally Abdomen: bowel sounds present, soft, non-tender to palpation Edema: no edema noted Neuro: mental status intact, speech clear Previous Laboratory Results Glucose (mg/dL) Date Value 12/05/2020 87 Potassium (mmol/L) Date Value 12/05/2020 4.6 12/05/2019 4.5 eGFR- (no units) Date Value 12/05/2020 >60 12/05/2019 >60 eGFR-All Other Races (.) Date Value 12/05/2020 >60 12/05/2019 >60 Creatinine Date Value Ref Range Status 12/05/2020 0.60 0.58 - 0.96 mg/dL Final 12/05/2019 0.70 0.58 - 0.96 mg/dL Final AST Date Value Ref Range Status 12/05/2019 14 13 - 35 U/L Final ALT Date Value Ref Range Status 12/05/2019 5 (L) 7 - 38 U/L Final Cholesterol, Total (mg/dL) Date Value 03/29/2019 154 HDL Cholesterol (mg/dL) Date Value 03/29/2019 51 LDL Cholesterol (mg/dL) Date Value 03/29/2019 82 Triglyceride (mg/dL) Date Value 03/29/2019 106 LDL:HDL Ratio (no units) Date Value 03/29/2019 1.61 No results found for: UALBCR , UPROT , UCR , UCRR , UALB Impression / Recommendations Yonatan Kovacs is a 23 year old here for evaluation of Diabetes and low TSH complicated by food aversion, protein malnutrition, migraines, psychogenic nonepileptic seizure, anxiety and panic disorder, transgender (E13.69) Other specified diabetes mellitus with other specified complication, without long-term current use of insulin (HCC) (primary encounter diagnosis) (R63.39) Sensory food aversion (R63.4) Abnormal weight loss (F41.9) Anxiety disorder, unspecified type (E44.1) Mild protein-calorie malnutrition (HCC) (R79.89) Low TSH level (R63.6) Low weight (F44.5) Psychogenic nonepileptic seizure Glycemic control: HbA1c target (< 7%) per ADA guidelines. - A1c is at target (< 7%). - Glycemic control is labile - Hyperglycemia reports of elevations but no data brought to clinic - Hypoglycemia reports of low readings but no data brought to clinic - Discussed carbohydrates and their relationship to blood glucose. Recommended low carbohydrate diet and discussed examples. - Discussed microvascular and macrovascular complications of diabetes and possible progression of these complications if diabetes is uncontrolled. - Reviewed blood glucose targets and HbA1c goal. - Discussed hypoglycemia signs and symptoms and how to treat using the rule of 15. - Recommend regular moderate intensity exercise 150 minutes weekly - start metformin 500 mg 2x daily with food - [employer] G7 for glucose monitoring - advised if having low glucose alert on CGM to confirm glucose with finger stick. If true hypoglycemia, advised to treat low and then recheck glucose after treatment. - discussed possible compression glucose reading if laying on CGM. - discussed hypoglycemia signs and symptoms and how to treat - increase protein intake as able to tolerate in small portions - Renal Function Panel, Lipid Panel, UACR, GARY Ab, Islet cell Ab, and C-peptide in the coming days Diabetes Plan: Send message in 2 and 4 weeks for follow up with CGM data for review - start metformin with meals 2x daily Try to increase protein and healthy calories - discussed staying true to foods he does not have an aversion to at this time - follow up with Endo Psych and endo Nutrition - Check glucose 4 times daily and as needed with CGM - Glucose targets: Fasting 80-130 mg/dL, before meals 80-130 mg/dL, 2 hours after meal <180 mg/dL, and bedtime <150 mg/dL. - Notify office for consistently elevated or any low glucose readings <70 mg/dL. - Bring meter and/or glucose readings to each appointment - Physical activity as tolerated to 150 minutes activity weekly (combination of aerobic & resistance). - Low carbohydrate diet (60-130 grams of carbohydrates per day) Follow up 2 months Blood pressure: Target for patients with diabetes is < 130/80. - Last 3 Encounter BP Readings: Date: BP: 12/10/2020 110/77 11/26/2020 127/83 11/25/2020 124/81 - The patient is at/near target on current antihypertensive therapy. - will continue to follow up with cardiology Lipids: Goal LDL cholesterol in patients with diabetes is < 70 mg/dL or < 55 mg/dL if patient has overt CVD. Statin therapy is recommended for those age >40 with diabetes. - The patient is not up to date on lipid testing. Lipid panel ordered. Nephropathy screening: Annual measurement of urine albumin excretion is recommended in patients with diabetes. - The patient is not up to date on albuminuria screening and this was ordered today. Neuropathy screening: -- will examine at follow up appt Ophthalmology: Annual dilated eye exams are recommended for patients with type 1 and type 2 diabetes. - Up to date with annual eye exam and does not have a history of retinopathy. Patient to continue to follow up with PCP regarding other chronic health issues, medical problems, and preventative health screenings. Any part of this document that has been added/copied & pasted from other documents has been reviewed for accuracy and updated as appropriate at the time of the patient encounter. I spent a total of 75 minutes on the date of the service which included preparing to see the patient, nuum-rv-[id number] patient care, completing clinical documentation, obtaining and/or reviewing separately obtained history, performing a medically appropriate examination, counseling and educating the patient/family/caregiver, and ordering medications, tests, or procedures. Gale Bassett, MSN, [employer] SUPER[employer]OR [facility] Endocrinology Specialties Department [facility] [address] [place], [place] [address] Electronically signed by Gale Bassett, CERTIFIED PERSONAL TRAINER.INSIDE PLANT SUPERVISOR at 04/16/2024 4:59 PM EDT documented in this encounter [facility] 04-16-2024 Note HNO ID: [id number] Author: GALE BASSETT APRN.[employer] SUPERVISOR Service: ? Author Type: Nurse Practitioner Type: Progress Notes Filed: 04/16/2024 16:59 Note Text: Endocrinology Initial Diabetes Assessment Bhavna Kovacs is here for a consultation regarding: Diabetes My final recommendations will be communicated back to the requesting physician by way of shared Medical record or letter to requesting physician via US mail. PCP is Eric French Sr, DO Eric French Sr [address] [id number] Subjective History of Present Illness Bhavna Kovacs is a 23 year old adult who presents today for evaluation of Diabetes . Diagnosed with Diabetes 2020. Pertinent medical history of . History of DKA? No History of hypoglycemia requiring treatment from others / hospitalization? Having nausea, shaky, blurred vision, constipation Hypoglycemia awareness: Good - will eat something Waking up with glucose at 180-200 Recent weight changes: Yes -lost about 5# Vision changes: Yes Increased thirst: Yes Polydipsia: No Polyuria: Yes DM Complications: none Prior DM Medications: Metformin 2 tabs 2x/day Current DM Medications: Na Glucose Monitoring: - Frequency of Monitorin times daily - Reports hypoglycemia. - Able to self treat: Yes - BG Values: - Breakfast: 180-200 Dinner is usually around 6:30/7p 8p : did not eat - 60s and if has eaten - in 70s - Wide fluctuations in glucose: Yes, see range as above Physical Activity: Physically active with [employer] boarding Diet: Breakfast: cereal - Krave with 2% milk Lunch: not eating Snack: chocolate Dinner: not hungry Snacks: 3am - chocolate Dessert: Beverages: water - 1 gallon or more Number of meals a day: 1 Number of snacks a day: 2 Prefer lunch meat, chicken nuggets, fries, some cereals with milk, drinking water Texture aversions, only likes a few things Had a seizure while trying to eat a Motzarella sticks - he is not really willing to try new foods right now Willing to try protein shakes Often not hungry Will not be hungry for very long periods then will eat 14 chicken nuggets or more Generally eats the same brand Does not eat vegetables at this time He is seeing neurology for seizures - 1st seizure at 16 yo - still getting worked up - and figuring out his medications Has not had a seizure in 2 months He is also to have testing for Autism/Autistic spectrum disorder Recent A1c Results: Hemoglobin A1C (POCT) (%) Date Value 04/16/2024 5.3 Diabetes Health Maintenance: Diabetic Foot and Retinal Eye Exam not Overdue Past History, Allergies, Medications Current Medications 04/13/2024 CARDIOVASCULAR Medication Dosage Pharm Subclass metoprolol succinate ER (TOPROL XL) 100 mg Take by mouth. Beta Blockers Cardiac Selective propranolol (INDERAL) 10 mg tablet Take 1 tablet by mouth three times daily. Beta Blockers Non-Cardiac Selective OTHER Medication Dosage Pharm Subclass BD LUER-MARYLOU SYRINGE 1 mL syringe for use with testosterone injection SQ Q2wks Medical Supplies and DME - [place] and Syringes lamoTRIgine (LAMICTAL) 25 mg tablet Take 100 mg by mouth twice daily. Anticonvulsant - Phenyltriazine Derivatives LORazepam (ATIVAN) 1 mg tablet Take 1 mg by mouth q 12 HR. Antianxiety Agent - Benzodiazepines Needle, Disp, 18 G (BD DISPOSABLE NEEDLES) 18 gauge x 1 ndle For use to withdraw testosterone Q2wks Medical Supplies and DME - [place] and Syringes Needle, Disp, 23 G 23 gauge x 3/4 ndle For use with testosterone administration SQ Q2wks Medical Supplies [facility] DME - [place] and Syringes phenytoin ER (DILANTIN) 100 mg ER capsule Take 300 mg by mouth once daily. Anticonvulsant - Hydantoins testosterone cypionate (DEPO-TESTOSTERONE) 200 mg/mL injection INJECT 100 MG (0.5 ml) SQ Q2wks Androgen - Single Agents PAST MEDICAL HISTORY Diagnosis Date Anxiety Depression Family history of epilepsy Gender dysphoria Panic attacks Seizures (HCC) pseudoseizures Traumatic brain injury (HCC) PAST SURGICAL HISTORY Procedure Laterality Date NONE FAMILY HISTORY Problem Relation Age of Onset No Known Problems Mother other (overweight) Father No Known Problems Sister No Known Problems Brother Heart Maternal Grandmother valve replacement Heart Maternal Grandfather 48 No Known Problems Paternal Grandmother Diabetes Paternal Grandfather Hypertension Paternal Grandfather Lipids Paternal Grandfather Stroke Paternal Grandfather Heart Paternal Grandfather other (smokes) Paternal Grandfather No Known Problems Sister No Known Problems Brother Social History Tobacco Use Smoking status: Never Smokeless tobacco: Never Vaping Use Vaping status: Never Used Substance Use Topics Alcohol use: Not Currently Drug use: Not Currently Types: Marijuana ALLERGIES Allergen Reactions Codeine Hives, Itching Revi (more content not included)... [facility] 02-16-2024 History of Present illness Narrative Images from the original note were not included. CHIEF COMPLAINT REASON FOR VISIT: Seizures HPI: Yonatan Kovacs is a 23 y.o. female who presents for a follow up. States he was just put on flecainide for his heart due to his heart arrhythmia. He states he has syncope. States he can still feel his heart race. He states he has no awareness of passing out. He states he will just pass out. He states he passed out and hit his head. States he will have to go back to see cardiology in 4 months. He states he is taking the qelbree. He states he is getting nightmares and loss of appetite. He states his sleep is bad. States he has not been to sleep at all. States he is just not tired. He has been getting headaches. He states he is taking the aimovig tomorrow. CURRENT MEDICATIONS: ALLERGIES/DISCONTINUE MEDICATIONS Current Outpatient Medications Medication Instructions Aimovig 140 mg, Subcutaneous, Every 28 days Briviact 100 MG tablet tablet TAKE 1 TABLET BY MOUTH IN THE MORNING and ONE TABLET BY MOUTH BEFORE bedtime Ciclopirox 1 % shampoo Lather on wet hair, leave on 5 min, rinse 2-3 x week, 30 day supply clindamycin (Cleocin T) 1 % lotion Apply to face and back once daily/ 30 day supply cloBAZam (ONFI) 10 mg, Oral, Nightly docusate sodium (COLACE) 100 mg, Oral, Daily flecainide (TAMBOCOR) 100 mg, Oral, 2 times daily ibuprofen 600 mg, Oral, Every 6 hours PRN lamoTRIgine (LAMICTAL) 200 mg, Oral, 2 times daily metoprolol succinate XL (TOPROL-XL) 12.5 mg, Oral, Daily Midazolam (Nayzilam) 5 MG/0.1ML solution 1 spray, Nasal, As needed midodrine (PROAMATINE) 5 mg, Oral, 3 times daily montelukast (SINGULAIR) 10 mg, Oral, Nightly naproxen (NAPROSYN) 500 mg, Oral, 3 times daily PRN ondansetron (ZOFRAN) 4 mg, Oral, Every 12 hours PRN ondansetron ODT (ZOFRAN-ODT) 4 mg, Oral, Every 8 hours PRN Senokot S 8.6-50 MG tablet 2 tablets, Oral, Daily sertraline (ZOLOFT) 25 mg, Oral, Daily sertraline (ZOLOFT) 50 mg, Oral, Daily sulfacetamide suspension (Klaron) 10 % lotion topical Apply thin layer to face once daily, 30 day supply. tiZANidine (Zanaflex) 4 MG tablet Take 0.5 tablets (2 mg) by mouth at bedtime for 7 days, THEN 1 tablet (4 mg) at bedtime. traZODone (DESYREL) 100 mg, Oral, Nightly True Metrix Blood Glucose Test test strip USE TEST STRIP TO TEST BLOOD SUGAR EVERY DAY Ubrogepant (Ubrelvy) 100 MG tablet 1 tablet, Oral Viloxazine HCl ER (Qelbree) 200 MG capsule sustained-release 24 hr Take 1 capsule by mouth Daily in the Morning for 7 days, THEN 2 capsules Daily in the Morning. Allergies Allergen Reactions Codeine Hives and Itching Other Reaction(s): Hives Other Reaction(s): Not available There are no discontinued medications. PAST MEDICAL HISTORY: SURGICAL/SOCIAL/FAMILY HISTORY DEPRESSION SCREEN: Past Medical History: Diagnosis Date Diabetes ([facility]/HCC) Seizures ([facility]) Past Surgical History: Procedure Laterality Date LOOP RECORDER IMPLANT Left MASTECTOMY Bilateral Social History Tobacco Use Smoking status: Never Smokeless tobacco: Never Vaping Use Vaping status: Never Used Substance Use Topics Alcohol use: Never Drug use: Yes Types: Marijuana Family History Problem Relation Name Age of Onset Cancer Other Melanoma Neg Hx Depression: Not at risk (11/25/2023) Received from [facility], [facility] PHQ-2 Total Score: 0 REVIEW OF SYMPTOMS: Review of Systems Constitutional: Negative for chills, diaphoresis, fatigue and fever. HENT: Negative for ear pain, tinnitus and trouble swallowing. Eyes: Negative for photophobia and visual disturbance. Respiratory: Negative for cough and shortness of breath. Cardiovascular: Negative for palpitations and leg swelling. Gastrointestinal: Negative for abdominal pain and nausea. Genitourinary: Negative for difficulty urinating and urgency. Musculoskeletal: Negative for arthralgias, back pain, myalgias, neck pain and neck stiffness. Neurological: Negative for tremors, weakness, light-headedness and numbness. Psychiatric/Behavioral: Negative for agitation, confusion and suicidal ideas. OBJECTIVE: 02/16/2024 10:44 AM 12/12/2023 11:40 AM 11/17/2023 9:46 AM Vitals BMI 18.11 kg/m2 16.9 kg/m2 18.11 kg/m2 BSA (m2) 1.4 m2 1.35 m2 1.4 m2 Systolic 92 100 Diastolic 54 80 Height (in) 5' 2 5' 2 5' 2 Weight (lb) 99 92.4 99 Visit Report Report Report Report EXAM: Neurological Exam Mental Status Awake, alert and [...] or fasciculations. Motor Normal muscle bulk throughout. Normal muscle tone. Right Left Wrist flexion 5 5 Wrist [...] reflexes: Aj's absent. Ankle clonus absent. Coordination Sxmdyn-xb-pyej, rapid alternating movements and ioyg-st-hbqp normal bilaterally without dysmetria. Gait Normal casual, toe, heel and tandem gait. Romberg is absent. PROCEDURE: NONE ASSESSMENT AND PLAN: Diagnoses and all orders for this visit: ADD (attention deficit disorder) without hyperactivity Decrease down to 1 tablet of Qelbree. 200 mg daily. Insomnia due to medical condition Go up to 1 1/2 tablets of the trazodone. Can increase to 2 full tablets if needed for sleep. Seizure disorder ([facility]) I counseled the patient on the possible side effects and interactions of medications. Follow up 3 months. documented in this encounter [facility] 02-07-2024 Note [facility] Electrophysiology Consult Note Reason for visit: event monitor from 01/2023 , palpitations 02/07/24 Patient was recently evaluated by Jacqueline Damon after admission for near syncope and questionable seizures. She was initially admitted to [facility] and then thereafter transferred to [facility]. Reportedly he had kyom-bv-hohu seizures while he was undergoing his physical therapy sessions. Pt has been off work due to his underlying seizures and currently unemployed. Pt states that he usually exercises between 6-8am. Loop data is revealing for multiple episodes which are consistent with long RP tachycardia likely atrial tachycardia versus sinus tachycardia. As some of these episodes are not correlating with exercise I am more inclined to call his atrial tachycardia. Patient had episode of long RP tachycardia on January 26, 2024 which lasted for about 2-1/2 minutes another episode was noted on January 05, 2024 HPI: Bhavna Kovacs is a 23 y.o. [...] to male transgender FMH- Maternal grandmother early AR- 30's, Maternal grandfather- early AR in 40's Allergies-none Home meds-Effexor and testosterone injections Per Dr. Esparza 09/23/20 HPI: 20-year-old patient with a history of seizure disorder was recently seen by Ms. Bruce for complaints of palpitations. He states that he has felt them quite often and was significantly bothered by it on August 10 that he went to [facility]. EKG that performed shows evidence of [...] history Family medical history-paternal grandfather of an AR at 46 years of age, paternal uncle CAD, sister with SVT, grandmother A. fib Social-never smoker, admits occasional alcohol about once or twice a year, daily marijuana use ---- PMH: No past medical history on file. PSH: No past surgical history on file. SH: Social Determinants of Health Tobacco Use: Low Risk (01/03/2024) Patient History Smoking Tobacco Use: Never Smokeless Tobacco Use: Never Passive Exposure: Not on file Alcohol Use: Not on file Financial Resource Strain: Not on file Food Insecurity: Not on file Transportation Needs: Not on file Physical Activity: Not on file Stress: Not on file Social Connections: Not on file Intimate Partner Violence: Unknown (08/18/2023) [place] Safety & Environment Fear of Current or Ex-Partner: Not on file Emotionally Abused: Not on file Physically Abused: Not on file Sexually Abused: Not on file Physically or Sexually Abused: Not on file Depression: Not on file Housing Stability: Not on file Utilities: Not on file Allergies: Allergies Allergen Reactions Codeine Hives and Itching Weight: 45.4kg Visit Vitals BP 122/78 (BP Location: Left arm, Patient Position: Sitting) Pulse 92 Ht 1.549 m (5' 1 ) Wt 45.4 kg (100 lb) SpO2 99% BMI 18.89 kg/m??? Smoking Status Never BSA 1.4 m??? Meds: Current Outpatient Medications on File Prior to Visit Medication Sig Dispense Refill Briviact 50 mg tablet tablet TAKE 1 TABLET BY MOUTH IN THE MORNING and ONE TABLET BY MOUTH BEFORE bedtime cloBAZam (Onfi) 10 mg tablet TAKE 0.5 TABLETS BY MOUTH AT (more content not included)... [facility] 01-03-2024 Note Continue toprol [facility] 01-03-2024 Note Noted + orthostatic vitals, hypotension and tachcyardia with position changes. Increase toprol today and midodrine Increase sodium intake and continue adequate hydration RTC with Dr Esparza as scheduled He may benefit from evaluation at neurocardiogenic clinic at [facility] 01-03-2024 Note [facility] CARDIOLOGY PROGR ESS [...] and are negative. ILR remote monitoring report- [facility] [employer] Implantable Loop Recorder Report BATTERY JIM: Above [...] 11/24/23 evaluation for seizures 12/01/23 ED at [facility] and transfer to [facility] Date of evaluation: 12/01/23 CHIEF COMPLAINT Chief Complaint Patient presents with Seizures Hx of was just admitted to [facility] for seizures sent to [facility], had 2 seizures there, on 3 different meds took all meds today Head Injury Hit head on left side, HISTORY OF PRESENT ILLNESS The history is provided by the patient and medical records. The patient is a 23-year-old who is brought in by ambulance after seizure-like activity earlier today at [facility]. Per EMS, patient just completed his first physical therapy session, was seated in his wheelchair when he subsequently had 2 ahjz-wn-rbie seizures. She reportedly fell forward from his wheelchair striking his forehead on the floor. Patient gained consciousness and was aware of his surroundings shortly thereafter. No tongue trauma, no loss of control of bowel or bladder. She was recently discharged from [facility] for seizure-like activity and difficulty with [...] or ST depressions. Previous HPI per Dr Esparza HPI: Bhavna [...] to male transgender FMH- Maternal grandmother early AR- 30's, Maternal grandfather- early AR in 40's Allergies-none Home meds-Effexor and testosterone injections Per Dr. Esparza 09/23/20 HPI: 20-year-old patient with a history of (more content not included)... [facility] 01-03-2024 Note Patient here c/o [...] All other systems reviewed and are negative. [facility] 01-03-2024 Note C/O tachycardia and will increase toprol to 25 mg daily Monitor for low b/p and increased lightheadedness/dizziness and if needed can decrease back to 12.5 mg daily [facility] 01-03-2024 Note Recent initiation of toprol- he c/o continued tachycardia and palpitations- will increase toprol Noted orthostasis therefore will increase midodrine to 10 mg tid and continue hydration and add salt/electrolyte replacement to diet. Syncopal episode 08/23/23 with 1 day hospitalization at the [facility] 01-03-2024 Note stable [facility] 12-01-2023 Hospital Discharge instructions Aman Tapia MD - 12/01/2023 6:27 PM EDT Return to this emergency room immediately if your symptoms persist, worsen or if new ones form. Make sure you follow-up with your primary care doctor within the next 1-2 business days. The following attachments cannot be sent through Care Everywhere.Seizure ([place])documented in this encounter [facility] 11-16-2023 Note Syncopal episode 07/29 01/17 with 1 day hospitalization at the [facility] 11-16-2023 Note Noted SVT on loop in Jul- rate 150-170- but this does not correlate with 08/23/23 when he had syncopal episode and spent 1 day in hospital and received stitches for laceration. Start toprol 12.5 mg daily for SVT and d/w pt to call office for worsening dizzness/lightheadedness/syncope or low blood pressure- and or fatigue. [facility] 11-16-2023 Note [facility] CARDIOLOGY PROGR [...] to male transgender FMH- Maternal grandmother early AR- 30's, Maternal grandfather- early AR in 40's Allergies-none Home meds-Effexor and testosterone injections Per Dr. Esparza 09/23/20 HPI: 20-year-old patient with a history of seizure disorder was recently seen by Ms. Bruce for complaints of palpitations. He states that he has felt them quite often and was significantly bothered by it on August 10 that he went to [facility]. EKG that performed shows evidence of [...] history Family medical history-paternal grandfather of an AR at 46 years of age, paternal uncle [...] dry. Capillary Refill (more content not included)... [facility] 09-20-2023 History of Present illness Narrative Images from the original note were not included. [facility] [address] [facility] [id number] Subjective Patient ID: Bhavna Kovacs is [...] new bowel/bladder dysfunction, saddle anesthesia, balance problems, machine hand strength weakness, difficulty with buttoning/writing, and loss of coordination. Current and prior evaluation and treatments: -Medication trials for this problem: Tylenol - Alternative methods to treatment: None -Physical therapy/Home exercise program: None -long term care social worker: None -Pain management: None -Pertinent spine surgeries/previous [...] seen. Carina Garcia MD Clinical Neurophysiology Fellow [facility] Teaching/Attending Physician Attestation: I have personally reviewed [...] epilepsy. Carina Garcia MD Clinical Neurophysiology Fellow [facility] Teaching/Attending Physician Attestation: I have personally reviewed [...] kidney disease Diabetes mellitus type 2, controlled ([facility]) states diagnosed on Tuesday DUFFY (dyspnea on exertion) Epilepsy ([facility]) Gender dysphoria Head injury Panic disorder Seizures ([facility]) last seizure was November 13 had 5-6+ [...] procedures Referring and communicating with other health care technician (not separately reported) Documenting clinical information in the electronic or other health record Independently interpreting results (not separately reported) and communicating results to the patient/family/caregiver Care coordination (not separately reported) Sarah Rice [facility] This note was created with the assistance of a speech recognition program. While intending to generate a timely document that accurately reflects the content of the visit, no guarantee can be provided that every grammatical or spelling mistake has been or will be identified or corrected. Thank you for your understanding. MILAGROS Duffy 09/23/23 [id number] documented in this encounter [facility] 09-20-2023 Instructions MILAGROS Duffy - 09/20/2023 11:00 AM EDT Physical therapy, call to schedule Ibuprofen 600 mg every 8 hours as needed for pain Tizanidine 2 mg every 8 hours as needed for muscle spasms Follow up in 8 weeks The following attachments cannot be sent through Care Everywhere.Back Precautions ([place])documented in this encounter [facility] 09-19-2023 History of Present illness Narrative Nexplanon [...] contraceptive mere was inserted according to the design engineering specialist's instructions without complications. The mere was palpable [...] Encounter Procedures POCT , urine VANESA HAILE, BIOCHEMICAL DEVELOPMENT ENGINEER documented in this encounter [facility] 09-15-2023 Miscellaneous Notes Please schedule him for cystoscopy/possible bilateral retrograde pyelograms under local anesthesia with Dr. Mckeon at [facility]. Diagnosis: Gross hematuria, urinary retention DR MCKEON: PLEASE REVIEW AND ADVISE IF YOU WANT THIS CASE UNDER LOCAL OR MAC. THANK YOU mac documented in this encounter [facility] 09-15-2023 Telephone encounter Note Please schedule him for cystoscopy/possible bilateral retrograde pyelograms under local anesthesia with Dr. Mckeon at [facility]. Diagnosis: Gross hematuria, urinary retention [facility] 09-15-[address] MCKEON: PLEASE REVIEW AND ADVISE IF YOU WANT THIS CASE UNDER LOCAL OR MAC. THANK YOU [facility] 09-15-2023 Telephone encounter Note mac [facility] 09-13-2023 History of Present illness Narrative Bhavna [...] cyst from CT scan from 2-2 at [facility]. Reviewed contraceptive options with patient, including [...] kidney disease Diabetes mellitus type 2, controlled ([facility]) states diagnosed on Tuesday DUFFY (dyspnea on exertion) Epilepsy ([facility]) Gender dysphoria Head injury Panic disorder Seizures ([facility]) last seizure was November 13 had 5-6+ seizures SVT (supraventricular tachycardia) Transgender Urinary tract infection Visual impairment SURGICAL HX Past Surgical History: Procedure Laterality Date BREAST SURGERY Bilateral 12/04/2020 mastectomy CYSTOSCOPY INSERTION STENT URETER Right 11/24/2021 Performed by Debbie Mckeon MD at [facility] CYSTOSCOPY REMOVAL STENT Right 12/09/2021 Performed by Debbie Mckeon MD at [facility] INSERTION LOOP RECORDER 08/03/2023 LASER HOLMIUM URETEROSCOPY RENAL STONES < OR=1CM Right 11/24/2021 Performed by Debbie Mckeon MD at [facility] FAMILY HX Family History Problem Relation [...] Cyst of left ovary - [facility] BIOCHEMICAL DEVELOPMENT ENGINEER - [facility] - [place], [place] - Consult LIKELY OVULATORY FOLLICULAR CYST FU PELVIC SONO NEXPLANON PLACEMENT SCHEDULED NEXT WEEK WILL PROVIDE OVULATORY SUPPRESSION AND CONTRACEPTION UPT TODAY AND RPT NEXT WEEK PRIOR TO INSERTION CONSIDER TESTOSTERONE PELLETS FOR FUTURE HRT URINARY RETENTION UNKNOWN ETIOLOGY--EST ETIOLOGY MD Francia MIMS LPN documented in this encounter [facility] 09-07-2023 Evaluation + Plan note Associated Problem(s): [...] necessary will be determined at the follow-up. [facility] 09-07-2023 Miscellaneous Notes Associated Problem(s): Right kidney [...] at the follow-up. documented in this encounter [facility] 09-07-2023 History of Present illness Narrative Images from the original note were not included. [address] [place] [address] [facility] [address] Patient: Bhavna Kovacs Date of : 2000 [...] not address his issues. He went to [facility] on 07/29/2023. Report from CT without [...] but [facility]. He [...] kidney disease Diabetes mellitus type 2, controlled ([facility]) states diagnosed on Tuesday DUFFY (dyspnea on exertion) Epilepsy ([facility]) Gender dysphoria Head injury Panic disorder Seizures ([facility]) last seizure was November 13 had 5-6+ seizures SVT (supraventricular tachycardia) Transgender Urinary tract infection Visual impairment Past Surgical History: Procedure Laterality Date BREAST SURGERY Bilateral 12/04/2020 mastectomy CYSTOSCOPY INSERTION STENT URETER Right 11/24/2021 Performed by Debbie Mckeon MD at [facility] CYSTOSCOPY REMOVAL STENT Right 12/09/2021 Performed by Debbie Mckeon MD at 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 Referral to speech language pathologist for the ovarian cyst. Previous ultrasound showed [...] [facility] 09/07/23 1330 documented in this encounter [facility] 08-16-2023 Miscellaneous Notes This patient was scheduled to see you last week on 08/10/23 in [place]. We rescheduled his appointment to 09/07/23. He [...] sometime this week documented in this encounter [facility] 08-16-2023 Telephone encounter Note This patient was scheduled to see you last week on 08/10/23 in [place]. We rescheduled his appointment to 09/07/23. He was okay with that but he wanted to let you know that he is still see's blood in his urine. I told him that I would relay that to you. [facility] 08-16-2023 Telephone encounter Note Please apologize for me. Let him know I was out sick. Is he willing to come to [place] again I can squeeze him in at 11:45 sometime this week [facility] 08-10-2023 History of Present illness Narrative Subjective [...] reflexes: Aj's absent. Ankle clonus absent. Coordination Ywyomw-in-rndx, rapid alternating movements and obhd-th-boyi normal bilaterally without dysmetria. Gait Normal casual, [...] 100 mg daily Yonatan can buy on iMedicare to treatment memory health and numbness. Migraines have not worsened and Imitrex aborts them. documented in this encounter [facility] 08-03-2023 Note LOOP IMPLANT PROCEDU RE NOTE DATE OF PROCEDURE: 08/03/23 PERFORMING PHYSICIAN: Dr. Aaron Esparza SAFETY ADMINISTRATOR: SAMANTA INDICATIONS FOR PROCEDURE: 1. SVT surveillance CONSENT: [...] the sternum on the left using the [employer] tool. The loop recorder was then [...] the incision. Aaron Esparza MD Cardiac Electrophysiology. [facility] 08-02-2023 Miscellaneous Notes Please call [...] for UA/PVR Pt states he went to [facility] after his 07/28/2023 ER visit and was told that he has an ovarian cyst and kidney stones. I called to request the records/images to PACS but had to [facility]. I also sent a fax request. [facility] fax # [phone] Tomas/Renetta: Can we get him for an appointment here or [place] in the next week or two? Patient has been scheduled for next Tuesday in our [place] office. documented in this encounter [facility] 08-02-2023 Telephone encounter Note Please call for [...] the next week or so for UA/PVR [facility] Tele[facility] encounter Note Pt states he went to [facility] after his 07/28/2023 ER visit and was told that he has an ovarian cyst and kidney stones. I called to request the records/images to PACS but had to [facility]. I also sent a fax request. [facility] fax # [phone] [facility] 08-02-2023 Telephone encounter Note Buffy: Can we get him for an appointment here or [place] in the next week or two? [facility] 08-02-2023 Telephone encounter Note Patient has been scheduled for next Tuesday in our [place] office. [facility] [facility] 07-07-2023 Evaluation + Plan note Associated Problem(s): [...] a referral to the spine care center. [facility] 07-07-2023 Miscellaneous Notes Associated Problem(s): Right [...] care center. documented in this encounter [facility] 07-07-2023 History of Present illness Narrative Images from the original note were not included. [address] [place] [address] Patient: Bhavna Kovacs Date of : 2000 [...] but he [facility] and [facility]. [...] kidney disease Diabetes mellitus type 2, controlled ([facility]) states diagnosed on Tuesday (dyspnea on exertion) Epilepsy ([facility]) Gender dysphoria Head injury Panic disorder Seizures ([facility]) last seizure was November 13 had 5-6+ seizures SVT (supraventricular tachycardia) ([facility]) Transgender Urinary tract infection Visual impairment Past Surgical History: Procedure Laterality Date BREAST SURGERY Bilateral 12/04/2020 mastectomy CYSTOSCOPY INSERTION STENT URETER Right 11/24/2021 Performed by Debbie Mckeon MD at [facility] CYSTOSCOPY REMOVAL STENT Right 12/09/2021 Performed by Debbie Mckeon MD at [facility] LASER HOLMIUM URETEROSCOPY RENAL STONES < OR=1CM Right 11/24/2021 Performed by Debbie Mckeon MD at [facility] Family History Problem Relation Age of [...] [facility] 07/07/23 1248 documented in this encounter [facility] [employer] 07-07-2023 Instructions DAWSON Segura - 07/07/2023 11:00 AM EST I do not see any obvious stones on x-ray. There are some limitations with the study though, so to rule out your kidneys as the source of the pain, let us have you get an ultrasound. Call central scheduling at [phone] to schedule the ultrasound. I will watch [...] investigate musculoskeletal sources for your symptoms Enriqueta: [phone] (Ext [phone]) -Tue documented in this encounter [facility] 02-06-2023 Hospital Discharge instructions Davidson Ortez [...] any other concerns. documented in this encounter [facility] 12-05-2019 History of Past i llness Narrative [...] of this encounter (statuses as of 04/09/2022) [facility] information availableBl[facility] Work Phone: Evaluation note* Diagnosis Seizure (HCC) Other convulsions [facility] Diagnosis Right kidney stone- Primary [facility] Diagnosis Intractable complex partial epilepsy (CMS/HCC)- Primary Cervical radiculopathy Brachial neuritis or radiculitis nos Insomnia due to medical condition Organic insomnia, unspecified Migraine without aura and without status migrainosus, not intractable (CMS/HCC) Memory loss Neck pain Cervicalgia Cervical paraspinal muscle spasm Spasm of muscle [facility] Diagnosis Right kidney stone- Primary Chronic bilateral low back pain with bilateral sciatica Cyst of left ovary Other and unspecified ovarian cyst Gross hematuria documented in this encounter [facility]* Diagnosis Low back pain, unspecified back pain laterality, unspecified chronicity, unspecified whether sciatica present- Primary documented in this encounter [facility]* Diagnosis Neck pain- Primary Cervicalgia documented in this encounter [facility]* Diagnosis Right kidney stone Irregular menstrual cycle- Primary Cyst of left ovary Other and unspecified ovarian cyst documented in this encounter [facility]* Diagnosis Right kidney stone Encounter for initial prescription of implantable subdermal contraceptive- Primary documented in this encounter [facility]* Diagnosis Right kidney stone Muscle spasm- Primary Spasm of muscle Chronic bilateral low back pain, unspecified whether sciatica present documented in this encounter [facility]* Diagnosis Seizure-like activity (HCC)- Primary Other convulsions [facility]* Diagnosis Onset Date Resolution Status Constipation acute Loss of appetite acute Nausea acute Weight loss, abnormal acute 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 Psychogenic nonepileptic seizure Anxiety disorder, unspecified type Panic attacks Panic disorder without agoraphobia Other specified diabetes mellitus with other specified complication, without long-term current use of insulin (HCC)- Primary Sensory food aversion Abnormal weight loss Loss of weight Anxiety disorder, unspecified type Mild protein-calorie malnutrition (HCC) Malnutrition of mild degree Low TSH level Nonspecific abnormal results of thyroid function study Low weight Underweight Psychogenic nonepileptic seizure [facility] Diagnosis Acne vulgaris- Primary Other acne Telogen effluvium [facility] Diagnosis ADD (attention deficit disorder) without hyperactivity Attention deficit disorder without mention of hyperactivity [facility]* Diagnosis ADD (attention deficit disorder) without hyperactivity- Primary Attention deficit disorder without mention of hyperactivity Intractable chronic migraine without aura and without status migrainosus (CMS/HCC) Intractable complex partial epilepsy (CMS/HCC) [facility]* Diagnosis 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, intractable (CMS/HCC) Localization-related (focal) (partial) epilepsy and epileptic syndromes with simple partial seizures, with intractable epilepsy Epilepsy, 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CMS/HCC) [facility]* Diagnosis Intractable chronic migraine without aura and without status migrainosus (CMS/HCC)- Primary documented in this encounter [facility]* Diagnosis ADD (attention deficit disorder) without hyperactivity Attention deficit disorder without mention of hyperactivity Insomnia due to medical condition Organic insomnia, unspecified Seizure disorder (CMS/HCC) Unspecified epilepsy without mention of intractable epilepsy Primary insomnia Persistent disorder of initiating or maintaining sleep documented in [facility] encounter [facility]* Diagnosis 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, intractable (CMS/HCC) Localization-related (focal) (partial) epilepsy and epileptic syndromes with simple partial seizures, with intractable epilepsy Epilepsy, 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CMS/HCC) [facility]* Diagnosis Seizure-like activity (HCC)- Primary Other convulsions Mild protein-calorie malnutrition (HCC) Malnutrition of mild degree 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 Acute post-traumatic headache, not intractable Acute post-traumatic headache Abnormal weight loss Loss of weight Low TSH level Nonspecific abnormal results of thyroid function study Mild protein-calorie malnutrition (HCC) Malnutrition of mild degree Pre-op evaluation- Primary Preoperative examination, unspecified 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 Psychogenic nonepileptic seizure Anxiety disorder, unspecified type Panic attacks Panic disorder without agoraphobia Hypoglycemia- Primary Hypoglycemia, unspecified Mild protein-calorie malnutrition (HCC) Malnutrition of mild degree Social anxiety disorder Social phobia Sensory food aversion Vision changes Unspecified visual disturbance Low TSH level Nonspecific abnormal results of thyroid function study 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 Night sweats Generalized hyperhidrosis Hematuria, unspecified type History of kidney stones Personal history of urinary calculi [facility] Diagnosis Seizure-like activity (HCC)- Primary Other convulsions Mild protein-calorie malnutrition (HCC) Malnutrition of mild degree 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 Acute post-traumatic headache, not intractable Acute post-traumatic headache Abnormal weight loss Loss of weight Low TSH level Nonspecific abnormal results of thyroid function study Mild protein-calorie malnutrition (HCC) Malnutrition of mild degree Pre-op evaluation- Primary Preoperative examination, unspecified 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) documented in this encounter [facility]* Diagnosis ADD (attention deficit disorder) without hyperactivity Attention deficit disorder without mention of hyperactivity [facility] Additional Instructions If your symptoms return/worsen or you develop any further concerns or symptoms please see your doctor or return to the emergency department immediately.[facility] Work Phone: Hospital Discharge instructions Additional Instructions Follow-up with primary care doctor Return to ED if develop worsening symptoms or concernsPrem[facility] Work Phone: Hospital Dis[facility] instructionsPrem[facility] Work Phone: Hospital Discharge instructions Additional Instructions Continue current [facility] Work Phone: Hospital Discharge instructions [...] of breath, abdominal pain, urinary complaints, nausea, vomiting.[facility] Work Phone: Hospital Discharge instructions Additional Instructions If your symptoms return/worsen or you develop any further concerns or symptoms please see your doctor or return to the emergency department immediately. Please be sure to follow-up with your neurologist.[facility] Work Phone: Hospital Discharge instructions Additional Instructions Continue your medication as prescribed Increase oral fluids Follow-up with your neurologist Return to the ER for uncontrolled seizures seizures lasting longer than 5 minutes fever or any other concernsBluffton Hospital Work Phone: Hospital Discharge instructionsAmbulatory Orders* Referral to Endocrinology Time Frame: 04/02/24, Location: None Selected [facility] Work Phone: InstructionsNot on filedocumented in [...] Cyst of left ovary Enriqueta Tse PA [facility] [place] [address] [facility] [address] [place] [address] Referral ID Status Reason Start Date Expiration Date Visits Requested Visits Authorized [id number] Pending Review Specialty Services Required 09/07/2023 09/06/2024 1 1 * Consultation (Routine) - Pending Review Specialty Diagnoses / Procedures Referred By Contsalty t Referred To Contact Spine Care Diagnoses Chronic bilateral low back pain with bilateral sciatica Enriqueta Tse PA [address] [place] [address] [facility] [address] [address] Referral ID Status Reason Start Date Expiration Date V isits Requested Visits Authorized [id number] Pending Review 09/07/2023 09/06/2024 1 1 [facility] Summary Purpose Family History No Family History Records Found Relationship Condition Age at Onset Recorded Date/T nain Not Specified No pertinent family history Unknown Advance Directives No Advanced Directives Records Found Advance Directive Response Recorded Date/ Time Advance Directives Yes January 05 1:48pm Documents on File Type Date Recorded 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 Advance Directive(s) 11/25/2020 10:24 AM Advance Directive Response Recorded Date/ Time Advance Directives Yes January 05 12:48pm Latest Code Status on File Code Status Date Activated Date Inactivated Comments Full Code 07/17/2017 5:41 AM 07/17/2017 8:14 PM Advance Directive Response Recorded Date/ Time Advance Directives Yes October 20, 2 023 1:02pm Advance Directive Response Recorded Date/ Time [...] Code 07/17/2017 5:41 AM 07/17/2017 8:14 PM Documents on File Type Date Recorded 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 Advance Directive(s) 11/25/2020 10:24 AM Date Activated Date Inactivated Comments 11/25/2023 2:59 PM 12/01/2023 1:25 AM Date Activated Date Inactivated Comments 08/26/2023 2:31 AM 08/26/2023 4:26 PM Date Activated Date Inactivated Comments 08/25/2023 6:03 PM 08/26/2023 12:43 AM Chief Complaint and Reason for Visit Chief [...] seizures Chief Complaint seizure seizures seizure seizure Chief Complaint Refer: nausea, const ipation, weight loss, appetite Reason for Visit Constipation Loss of appetite Nausea Weight loss, abnormal Reason for Referral Specialty Diagnoses / Procedures Referred By Carlos A boyle Referred To Contact Neurology Diagnoses Seizure (HCC) Davidson Ortez MD [address] [place] [address] Caleb Easton MD [address] [place] [address] Referral ID Status Reason Start Date Expiration Date V isits Requested Visits Authorized [id number] Open Specialty Services Required 02/06/2023 08/05/2023 1 1 Question Answer Reason For External Referral? Patient Preference My clinical question is: Evaluation of seizure d/o vs PNES Comments The patient can be scheduled with any member of the group, including the provider with the first available appointments. Specialty Diagnoses / Procedures Referred By Carlos A t Referred To Contact Diagnoses Intractable complex partial epilepsy (CMS/HCC) Lavonne Davies, TECHNICIAN [employer]ATED EQUIPMENT [address] [place] [address] Referral ID Status Reason Start Date Expiration Date Visits Re quested Visits Authorized [id number] Closed 1 1 Specialty Diagnoses / Procedures Referred By Contac t Referred To Contact Rehabilitation Diagnoses Chronic bilateral low back pain with bilateral sciatica Muscle spasm Sarah Rice, [employer] SUPERVISOR [address] [facility] [address] [place] [address] Referral ID Status Reason Start Date Expiration Date Visits Requested Visits Authorized [id number] Pending Review Specialty Services Required 09/20/2023 03/22/2024 1 1 Specialty Diagnoses / Procedures Referred By Contac t Referred To Contact Diagnoses Other specified diabetes mellitus with other specified complication, without long-term current use of insulin (HCC) Sensory food aversion Abnormal weight loss Mild protein-calorie malnutrition (HCC) Procedures ENDOCRINOLOGY DIETITIAN VISIT (MNT) MEDICAL NUTRITION ASSMT&IVNTJ INDIV EACH 15 AR MEDICAL NUTRITION ASSMT&IVNTJ INDIV EACH 15 AR MEDICAL NUTRITION ASSMT&IVNTJ INDIV EACH 15 [place] MEDICAL NUTRITION ASSMT&IVNTJ INDIV EACH 15 [place] Gale Bassett, ROSA.INSIDE PLANT SUPERVISOR [address] [place] [address] Referral ID Status Reason Start Date Expiration Date Visits Requested Visits Authorized [id number] Authorized PCP Requested Referral 4 04/16/2025 1 1 Specialty Diagnoses / Procedures Referred By Contac t Referred To Contact Ophthalmology Diagnoses Mild protein-calorie malnutrition (HCC) Vision changes Procedures CONSULT TO OPHTHALMOLOGY OFFICE/OUTPATIENT [facility] 60 MINUTES Gale Bassett, CERTIFIED PERSONAL TRAINER.INSIDE PLANT SUPERVISOR [address] [place] [address] Referral ID Status Reason Start Date Expiration Date Visits Requested Visits Authorized [id number] Authorized PCP Requested Referral 4 06/18/2025 1 1 Additional Source Comments INFORMATION SOURCE (unrecogn ized section and content) DATE CREATED AUTHOR 09/02/2018 [facility] DATE CREATED AUTHOR AUTHOR'S ORGANIZ ATION 10/20/2018 [facility] DATE CREATED AUTHOR AUTHOR'S ORGANIZ ATION 03/24/2021 [facility] DATE CREATED AUTHOR AUTHOR'S ORGANIZ ATION 09/16/2021 [facility] DATE CREATED AUTHOR AUTHOR'S ORGANIZ ATION 09/28/2022 [facility] DATE CREATED AUTHOR AUTHOR'S ORGANIZ ATION 02/06/2023 [facility] DATE CREATED AUTHOR AUTHOR'S ORGANIZ ATION 10/12/2023 [facility] DATE CREATED AUTHOR AUTHOR'S ORGANIZ ATION 12/10/2023 [facility] DATE CREATED AUTHOR AUTHOR'S ORGANIZ ATION 12/15/2023 [facility] DATE CREATED AUTHOR AUTHOR'S ORGANIZ ATION 12/29/2023 [facility] DATE CREATED AUTHOR AUTHOR'S ORGANIZ ATION 02/09/2024 [facility] DATE CREATED AUTHOR AUTHOR'S ORGANIZ ATION 05/01/2024 [facility] DATE CREATED AUTHOR AUTHOR'S ORGANIZ ATION 06/20/[address] [facility] DATE CREATED AUTHOR AUTHOR'S ORGANIZ ATION 06/24/2024 [facility] DATE CREATED AUTHOR AUTHOR'S ORGANIZ ATION 07/06/2024 [facility] DATE CREATED AUTHOR AUTHOR'S ORGANIZ ATION 07/07/2024 [facility] Care Teams (unrecognized sec tion and content) Team Status: Active Member Role Status Dates NON STAFF Primary Care Provider Active Team Status: Active Member Role Status Dates NON STAFF Primary Care Provider Active Start: January 29, 2024 Won Rahman , DO Attending Provider Active Sta rt: January 29, 2024 Team Status: Inactive Member Role Status Dates NON STAFF Primary Care Provider Active Start: April 02, 2024 End: April 02, 2024 Tana Solis DO Attending Provider Active St art: April 02, 2024 End: April 02, 2024 Lavonne Davies APRN TECHNICIAN [employer] Referring Provider Active Start: April 02, 2024 End: April 02, 2024 Team Status: Inactive Member Role Status Dates Tommy Bowne , Emergency Provider Active Eric French , Primary Care Provider Active Team Status: Inactive Member Role Status Dates Eric French , Primary Care Provider Active Bobby Gallagher , DO Emergency Provider Active Team Status: Inactive Member Role Status Dates Eric French , Primary Care Provider Active Roberto Whittaker , Emergency Provider Active Team Status: Inactive Member Role Status Dates Eric French , DO Primary Care Provider Active Luz Fiore , DO Emergency Provider Active Team Status: Active Member Role Status Dates Eric Gillian , DO Primary Care Provider Active Team Status: Inactive Member Role Status Dates Eric Gillian , DO Primary Care Provider Active Los Mcnally , DO Emergency Provider Active Team Status: Inactive Member Role Status Dates Eric Gillian , DO Primary Care Provider Active Mario Alberto Jose MD Emergency Provider Active Casing Crew Pusher Relationship Specialty Start Date End Date Eric French Sr. [address] [place] [address] PCP - General Family Medicine 03/29/19 Team Status: Inactive Member Role Status Dates Luz Fiore , Emergency Provider Active Eric French , DO Primary Care Provider Active Brandon Verde DO RES Active Team Status: Inactive Member Role Status Dates Los Mcnally , DO Emergency Provider Active Eric French , DO Primary Care Provider Active Aman Cortes , DO RES Active Team Status: Inactive Member Role Status Dates Eric Gillian , DO Primary Care Provider Active Attila Nelson , DO Emergency Provider Active Team Status: Inactive Member Role Status Dates Roberto Whittaker , DO Emergency Provider Active Eric French , DO Primary Care Provider Active Team Status: Inactive Member Role Status Dates Shanelle Bowen PA-C Emergency Provider Active Eric Gillian , Primary Care Provider Active Team Status: Inactive Member Role Status Eric Gillian , Primary Care Provider Active Federica Wolfe , [facility] Emergency Provider Active Casing Crew Pusher Relationship Specialty Start Date End Date Eric French Sr., DO [address] [place] [address] PCP - General Family Medicine 07/17/17 Team Status: Inactive Member Role Status Dates Eric French , Primary Care Provider Active Margarita Gallo MD RES Active Milton Rivera PA-C Emergency Provider Active Team Status: Inactive Member Role Status Dates Mario Alberto Jose MD Emergency Provider Active NON STAFF Primary Care Provider Active Team Status: Inactive Member Role Status Dates Luz Fiore , Emergency Provider Active NON STAFF Primary Care Provider Active Casing Crew Pusher Relationship Specialty Start Date End Date Eric French, DO [address] [place] [address] PCP - General Family Medicine 03/12/20 Casing Crew Pusher Relationship Specialty Start Date End Date Eric French DO [address] [place] [address] PCP - General Family Medicine 03/12/20 Casing Crew Pusher Relationship Specialty Start Date End Date Eric French MD [address] [place] [address] PCP - General Family Medicine 02/11/23 Casing Crew Pusher Relationship Specialty Start Date End Date Eric French DO [address] [place] [address] PCP - General Family Medicine 03/12/20 Casing Crew Pusher Relationship Specialty Start Date End Date Eric French DO [address] [place] [address] PCP - General Family Medicine 03/12/20 Casing Crew Pusher Relationship Specialty Start Date End Date Eric French DO [address] [place] [address] PCP - General Family Medicine 03/12/20 Casing Crew Pusher Relationship Specialty Start Date End Date Eric French DO [address] [place] [address] PCP - General Family Medicine 03/12/20 Casing Crew Pusher Relationship Specialty Start Date End Date Eric French DO [address] [place] [address] PCP - General Family Medicine 03/12/20 Casing Crew Pusher Relationship Specialty Start Date End Date Eric French DO [address] [place] [address] PCP - General Family Medicine 03/12/20 Casing Crew Pusher Relationship Specialty Start Date End Date Eric French DO [address] [place] [address] PCP - General Family Medicine 03/12/20 Casing Crew Pusher Relationship Specialty Start Date End Date Eric French DO [address] [place] [address] PCP - General Family Medicine 03/12/20 Casing Crew Pusher Relationship Specialty Start Date End Date Eric French DO [address] [place] [address] PCP - General Family Medicine 03/12/20 Casing Crew Pusher Relationship Specialty Start Date End Date Eric French Sr., DO [address] [place] [address] PCP - General Family Medicine 07/17/17 Casing Crew Pusher Relationship Specialty Start Date End Date Eric French Sr., DO [address] [place] [address] PCP - General Family Medicine 07/17/17 Casing Crew Pusher Relationship Specialty Start Date End Date Eric French Sr., DO PCP - General Family Medicine 03/29/19 Casing Crew Pusher Relationship Specialty Start Date End Date Eric French Sr., DO PCP - General Family Medicine 03/29/19 Casing Crew Pusher Relationship Specialty Start Date End Date Eric French MD [address] [place] [address] PCP - General Family Medicine 02/11/23 Lavonne Davies NP [address] [place] [address], [place] [address] PCP - [facility] 12/26/23 Casing Crew Pusher Relationship Specialty Start Date End Date Eric French MD [address] [place] [address] PCP - General Family [facility] 02/11/23 Lavonne Davies NP [address] [place] [address] PCP - [facility] 12/26/23 Casing Crew Pusher Relationship Specialty Start Date End Date Eric French Sr., DO PCP - General Family [facility] 03/29/19 Casing Crew Pusher Relationship Specialty Start Date End Date Eric French MD [address] [place] [address] PCP - General Family Medicine 02/11/23 Lavonne Davies NP [address] [place] [address], [place] [address] PCP - [facility] 12/26/23 Casing Crew Pusher Relationship Specialty Start Date End Date Eric French MD [address] [place] [address] PCP - General Family Medicine 02/11/23 Lavonne Davies NP [address] [place] [address], [place] [address] PCP - [facility] 12/26/23 Casing Crew Pusher Relationship Specialty Start Date End Date Eric French MD [address] [place] [facility] [place] [address] PCP - General Family [facility] 02/11/23 Lavonne Davies NP [address] [place] [address], [place] [address] PCP - [facility] 12/26/23 Casing Crew Pusher Relationship Specialty Start Date End Date Eric French MD [address] [place] [facility] [place] [address] PCP - General [facility] 02/11/23 Lavonne Davies NP [address] [place] [address], [place] [address] PCP - [facility] 12/26/23 Casing Crew Pusher Relationship Specialty Start Date End Date Eric French MD [address] [place] [facility] [place] [address] PCP - General [facility] 02/11/23 Lavonne Davies NP [address] [place] [address], [place] [address] PCP - [facility] 12/26/23 Casing Crew Pusher Relationship Specialty Start Date End Date Eric French MD [address] [place] [facility] [place] [address] PCP - General Family [facility] 02/11/23 Lavonne Davies NP [address] [facility] [address] [place] [address], [place] [address] PCP - [facility] 12/26/23 Casing Crew Pusher Relationship Specialty Start Date End Date Eric French MD [address] [place] [facility] [place] [address] PCP - [facility] 02/11/23 Lavonne Davies NP [address] [facility] [address] [place] [address], [place] [address] [facility] - [facility] 12/26/23 Casing Crew Pusher Relationship Specialty Start Date End Date Eric French MD [address] [place] [place] [address] PCP - [facility] 02/11/23 Lavonne Davies NP [address] [facility] [address] [place] [address], [place] [address] [facility] - [facility] 12/26/23 Casing Crew Pusher Relationship Specialty Start Date End Date Eric French Sr., DO PCP - General Family Medicine 03/29/19 Casing Crew Pusher Relationship Specialty Start Date End Date Eric French Sr., DO PCP - General Family Medicine 03/29/19 Casing Crew Pusher Relationship Specialty Start Date End Date Eric French Sr., DO PCP - General Family Medicine 03/29/19 Casing Crew Pusher Relationship Specialty Start Date End Date Eric French DO [address] [place] [address] PCP - General Family Medicine 01/06/24 Casing Crew Pusher Relationship Specialty Start Date End Date Eric French MD [address] [place] [address] PCP - General Family Medicine 02/11/23 Lavonne Davies NP [address] [facility] [address] [id number] PCP - [facility] 12/26/23 Goals (unrecognized section and content) Goals may [...] this encounterNot on filedocumented as of this encounterGoals may be documented in an alternate section Source Comments (unrecognize d section and content) In the event this informatio n is protected by the Federal Confidentiality of Alcohol and Drug Abuse Patient Records regulations: The Federal rules restrict any use of the information to criminally investigate or prosecute any alcohol or drug abuse patient.[facility] the event this information is protected by the Federal Confidentiality of Alcohol and Drug Abuse Patient Records regulations: The Federal rules restrict any use of the information to criminally investigate or prosecute any alcohol or drug abuse patient.[facility] the event this information is protected by the Federal Confidentiality of Alcohol and Drug Abuse Patient Records regulations: The Federal rules restrict any use of the information to criminally investigate or prosecute any alcohol or drug abuse patient.[facility] the event this information is protected by the Federal Confidentiality of Alcohol and Drug Abuse Patient Records regulations: The Federal rules restrict any use of the information to criminally investigate or prosecute any alcohol or drug abuse patient.[facility] the event this information is protected by the Federal Confidentiality of Alcohol and Drug Abuse Patient Records regulations: The Federal rules restrict any use of the information to criminally investigate or prosecute any alcohol or drug abuse patient.[facility] the event this information is protected by the Federal Confidentiality of Alcohol and Drug Abuse Patient Records regulations: The Federal rules restrict any use of the information to criminally investigate or prosecute any alcohol or drug abuse patient.[facility] the event this information is protected by the Federal Confidentiality of Alcohol and Drug Abuse Patient Records regulations: The Federal rules restrict any use of the information to criminally investigate or prosecute any alcohol or drug abuse patient.[facility] Reason for Visit (unrecogniz ed section and content) Reason Comments Seizures Pt has hx of epileps y, pt has had 14 seizures today Reason Comments Follow-up Pt is here for consu lt on ovarian cyst. Specialty Diagnoses / Procedures Referred By Contac t Referred To Contact Obstetrics and Gynecology Diagnoses Cyst of left ovary Enriqueta Tse PA [address] [place] [address] [facility] [address] [place] [address] Referral ID Status Reason Start Date Expiration Date V isits Requested Visits Authorized [id number] Closed Specialty Services Required 09/07/2023 09/06/2024 1 1 Reason Comments Contraception Reason Comments Consult New patient , lumbar , x-rays Specialty Diagnoses / Procedures Referred By Contac t Referred To Contact Spine Care Diagnoses Chronic bilateral low back pain with bilateral sciatica Enriqueta Tse PA [address] [place] [address] [facility] [address] [place] [address] Referral ID Status Reason Start Date Expiration Date V isits Requested Visits Authorized [id number] Pending Review 09/07/2023 09/06/2024 1 1 Reason Comments Seizures Hx of was just admit manjula to [facility] for seizures sent to [facility], had 2 seizures there, on 3 different meds took all meds today Head Injury Hit head on left reina e, Reason Comments Diabetes Reason Comments Follow-up Reason Comments Question dexcom 7 Reason Comments Med Refill Reason Comments Low Blood Sugar Reason Comments Refill Request Reason Onset Date Comments Med Refill 07/03/2024 Ordered Prescriptions (unrec ognized section and content) [...] 1,000 mg, IntraVENous, ONCE, 1 dose, On [place] 02/06/23 at 1715 1716 (New Bag - [...] [place] 12/01/23 at 1700, For 1 dose 170 (New Bag - Prov ider: Aleksander Henao RN)180 (Stopped - Provider: Aleksander Henao RN) FOR [...] BE BASED ON THE PRIMARY CLINICAL RECORDS. [employer] provides no warranty or guarantee of the accuracy or completeness of information in this document.
[2024-07-07 22:23] LABS: Basophils Percent Auto 0.4 % (0.2-2.0); Eosinophils Percent Auto 0.1 % (0.9-7.0); Hematocrit 38.8 % (36.0-48.0); Hemoglobin 13.3 g/dL (12.0-16.0); Immature Granulocytes Abs Auto 0.02 10^3/uL (0.00-0.03); Immature Granulocytes Pct Auto 0.3 % (0.0-0.5); Lymphocytes Absolute Auto 2.1 10^3/uL (1.2-3.8); Lymphocytes Percent Auto 27.2 % (20.5-60.0); Mean Corpuscular HGB Conc 34.3 g/dL (29.9-35.2); Mean Corpuscular Volume 87.4 fL (81.0-99.0); Monocytes Absolute Auto 0.6 10^3/uL (0.3-0.8); Monocytes Percent Auto 7.8 % (1.7-12.0); Neutrophils Percent Auto 64.2 % (43.0-75.0); Platelet Count 215 10^3/uL (150-450); Red Blood Count 4.44 10^6/uL (4.20-5.40); Red Cell Distribution Width 12.2 % (11.0-15.0); White Blood Count 7.8 10^3/uL (4.0-11.0)
[2024-07-07 22:38] LABS: Alanine Aminotransferase 10 U/L (14-59); Albumin Globulin Ratio 1.4; Albumin Level 4.1 g/dL (3.4-5.0); Alkaline Phosphatase 54 U/L (46-116); Anion Gap 14.6; Aspartate Amino Transferase 15 U/L (15-37); BUN Creatinine Ratio 11.1; Bilirubin Total 0.7 mg/dL (0.2-1.0); Calcium 8.9 mg/dL (8.5-10.1); Carbon Dioxide 25.9 mmol/L (21.0-32.0); Chloride 104 mmol/L (98-107); Estimated GFR (African America >60 (>=60 mL/min/1.73m^2); Estimated GFR (Non-African Ame >60 (>=60 mL/min/1.73m^2); Globulin 2.9 g/dL; Glucose 92 mg/dL (74-106); Magnesium 1.8 mg/dL (1.8-2.4); Potassium 3.5 mmol/L (3.5-5.1); Sodium 141 mmol/L (136-145)
--- NOTE | 2024-07-07 22:38 | ECG_ITS ---
[facility] Test Date: 2024-07-07 Pat Name: BHAVNA VILLAR Department: Room: - Gender: Female Publicity Consultant: : 2000 Requested By: [id number] Order Number: [id number] Reading MD: JOYCELYN LAMAR Measurements Intervals [place] Rate: 66 P: 76 DC: 146 QRS: 87 QRSD: 86 T: 75 QT: 366 QTc: 379 Interpretive Statements 1100 Sinus rhythm 0102 ARTIFACT PRESENT 9110 normal ECG Compared to ECG 01/28/2024 22:04:01 No significant changes Electronically Signed On 07-08-2024 7:46:44 EST by JOYCELYN LAMAR
[2024-07-07] MEDS: 0.9 % SODIUM CHLORIDE 1,000 ML 1000 ML IV (22:41)
[2024-07-07 22:44] LABS: Lactate/Lactic Acid 2.3 mmol/L (0.4-2.0)
--- NOTE | 2024-07-07 23:39 | ED.SEIZURE1 ---
HPI - Seizure General Chief Complaint: Seizure Stated Complaint: Seizure Time Seen by Provider: 07/07/24 22:14 Source: patient, family and other (EMS) Source comment: multiple witnessed seizures Mode of arrival: ambulance Limitations: no limitations Limitations comment: patient seems fatigued but is not altered. 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 The patient has a documented seizure disorder. The patient had previously been seizure-free for 5 months. The patient starting at 8 PM had approximately 8 seizures within 30 minutes. Each seizure lasted between 5 and 15 seconds. Patient's family gave 5 mg of Versed intranasally. This did not ablate the patient's seizures. Apparently and route to the hospital an IV was placed by EMS and the patient was given Versed 2 mg x 2. The patient then remained seizure-free until he arrived at the hospital. The patient does regain consciousness in between each episode and does not appear to have any prolonged postictal phase. The seizures are tonic-clonic and the patient was unresponsive during the episodes. Family states that the seizures that he is having today are distinctly different. Usually they last longer and are more intense. The seizures today are more frequent, shorter in duration and do not appear to be as violent. Patient apparently is on 27 medications and has been apparently compliant with all of the medications. Patient states that he has not slept well in 3 days. Patient denies any smoking, vaping, illicit drug use or alcohol. The patient stated he is not able to sleep well because one of his medications is a stimulant and he feels like it does not wear off before it is time to go to bed. Patient cannot recall last imaging of the head. But the patient has not had any recent head injuries. The patient has not had any injuries to the head. No anticoagulants. No morning headaches. No lateralizing symptoms. No slurred speech. Patient cannot recall last EEG. Patient's neurologist is Dr. Caleb Easton, advanced neurology. The patient does have a loop recorder and does have a cardiac history as well. Per the patient's father, the patient's hospitalizations all occur at [facility]. They want him to go to [facility] if transfer is necessary. Seizure History: Yes Place: home Possible Precipitating Event: Reports none Associated symptoms: Reports denies other symptoms Related Data Home Medications ?Medication ?Instructions ?Recorded ?Confirmed clobazam 10 mg tablet 10 mg PO .qhs 08/23/23 07/07/24 midazolam 5 mg/spray (0.1 mL) 1 spray intranasal PRN PRN FOR 08/24/23 07/07/24 nasal spray (Nayzilam) SEIZURES metoprolol succinate 25 mg 25 mg PO DAILY 01/28/24 07/07/24 tablet,extended release 24 hr midodrine 10 mg tablet 10 mg PO TID 01/28/24 07/07/24 trazodone 100 mg tablet 100 mg PO .HS 01/28/24 07/07/24 dexmethylphenidate 5 mg 5 mg PO DAILY 07/07/24 07/07/24 capsule,extended release [id number] doxycycline monohydrate 50 mg 50 mg PO DAILY 07/07/24 07/07/24 capsule flecainide 100 mg tablet 100 mg PO Q12H 07/07/24 07/07/24 lamotrigine 200 mg tablet 200 mg PO Q12H 07/07/24 07/07/24 metformin 500 mg tablet,extended 500 mg PO BID 07/07/24 07/07/24 release 24 hr mirabegron 50 mg tablet,extended 50 mg PO Q24H 07/07/24 07/07/24 release 24 hr (Myrbetriq) sennosides 8.6 mg tablet (senna) mg 07/07/24 Previous Rx's ?Medication ?Instructions ?Recorded hydrocodone 5 mg-acetaminophen 325 1 tab PO Q4H PRN pain #6 tabs 06/18/24 mg tablet ketorolac 10 mg tablet 10 mg PO Q8H PRN pain 1 day #10 06/18/24 tabs ondansetron 4 mg disintegrating 4 mg PO Q4H PRN nausea and 06/18/24 tablet vomiting 3 days #6 tabs tamsulosin 0.4 mg capsule (Flomax) 0.4 mg PO DAILY 7 days #7 caps 06/18/24 Allergies Allergy/AdvReac Type Severity Reaction Status Date / Time codeine Allergy Unknown Rash Verified 07/07/24 22:14 Review of Systems ROS Narrative 10 Systems were reviewed, and unless noted in the HPI, all other systems are reviewed, unremarkable, or noncontributory. PFSH PFSH Social History Smoking status: Current every day smoker Little interest or pleasure in doing things: not at all Feeling down, depressed, or hopeless: not at all Exam Narrative Exam Narrative: Prior to examining the patient, I have washed with hospital approved and provided Antiseptic Hand Structures Assembler and have also applied gloves.? Prior to touching the patient, I asked for consent to examine the patient.? General: Alert and oriented, well nourished, mild distress. Thin and pale Eye: PERRL, EOMI, normal conjunctiva. 5 mm reactive HENT: Normocephalic, normal hearing, moist oral mucosa, no scleral icterus, no sinus tenderness. Neck: Supple, non-tender, no carotid bruits, no JVD, no lymphadenopathy. No meningeal signs. Lungs: Clear to auscultation and percussion, non-labored respiration. No rhonchi, rales, wheezing Heart: Normal rate, regular rhythm, no murmur, gallop or edema. Abdomen: Soft, non-tender, non-distended, normal bowel sounds, no masses. Musculoskeletal: Normal range of motion and strength, no tenderness or swelling. Skin: Skin is warm, dry and pink, no rashes or lesions. Neurologic: Awake, alert, and oriented X3, CN II-XII intact. Patient does not have any vertical or horizontal nystagmus. The patient follows commands and has an unremarkable neuroexam. I have documented one of the seizure episodes. Patient becomes unresponsive and has generalized tonic-clonic movements that last 10 to 15 seconds. Patient is nearly immediately responsive. Psychiatric: Cooperative, appropriate mood and affect.? Following the conclusion of the examination, I have washed my hands thoroughly after removing examination gloves. Constitutional Vital Signs, click to edit/add: Last Vital Signs Temp 98.7 F 07/07/24 22:15 Pulse 70 07/08/24 06:20 Resp 30 H 07/08/24 06:20 BP 89/37 L 07/08/24 06:00 Pulse Ox 97 07/08/24 06:20 O2 Del Method Room Air 07/07/24 22:15 Course Course Hospital Course: Upon evaluation in the hospital blood was drawn. Patient has been given an exorbitant amount of medication. And the seizure episodes are very short burst and therefore we have not started the patient on any additional seizure medications given that the patient is on numerous seizure and cardiac medications. Current seizure meds: Lamotrigine and Onfi Current cardiac medications include midodrine, metoprolol, flecainide Reevaluation(s) Reevaluation #1: I re-evaluated the patient numerous times while in the ED and when he had the seizure episodes. It again looked like tonic clonic activity. I could never check the pupils during this reaction. No tongue biting, no foaming at the mouth. No urinary incontinence. Reevaluation #2: Family left at midnight. Lights turned down. Patient is on the monitor. Time: 00:00 Consultations Consultation #1: Shayan Cee called and spoke with me specifically Dr. Karo Gao, neurology. After having a discussion about the patient's history she advised me to give the patient Keppra 2 g IV piggyback and then add 500 mg twice daily. She question whether or not these were a psychogenic type of seizure. The managing director atlas indicated to me that they are discharge dependent on beds. She stated tomorrow afternoon would be the next opportunity for likely bed placement. She indicated to me someone would call tomorrow morning to touch [facility] to give us further information about likely estimated betting time. Time: 00:24 Consultation #2: Called the patient's father, Bassem, . 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 Patient is compliant with seizure medications which include Onfi and lamotrigine. In terms of what could decrease the patient's seizure threshold only lack of sleep was identified. With the amount of breakthrough seizures that the patient has had we feel it is necessary for the patient to obtain a 24-hour EEG. I did review medical record documentation the patient does not have a history of psychogenic seizures. Once the disposition was made the father and cousin went home, but provided their phone numbers. Bassem (father) [phone] Wyatt (cousin) [phone] I personally called the dad and discussed the delay with transfer being discharge-dependent. He was understanding of the process. Differential Diagnosis Differential diagnosis: Likely intractable seizure disorder, focal seizure, generalized seizure, epileptic seizure and status epilepticus Medical Records Attestation: I reviewed the patient's medical records. Medical records narrative: Reviewed the patient's medical record. Patient was seen by my colleague in October 2023. At that time the patient had weakness and recurrent seizures and was transferred to [facility]. In January the patient only had 1 episode of the seizure and was evaluated by my colleague and was able to be sent home after an evaluation of a head injury during the fall. Lab Data Attestation: I reviewed the patient's lab results. Lab results narrative: CBC reveals no evidence of anemia or leukocytosis. Competence of metabolic panel is unremarkable for any electrolyte, kidney, or liver dysfunction. Patient's lactic acid just mildly elevated at 2.3. Urine drug screen is positive for benzodiazepines which would be expected given the patient's recent use of benzodiazepine and route to the hospital. Patient's marijuana was positive. No alcohol in the patient system. Labs: Lab Results 07/07/24 07/07/24 Range/Units 22:15 23:48 WBC 7.8 (4.0-11.0) 10^3/uL RBC 4.44 (4.20-5.40) 10^6/uL Hgb 13.3 (12.0-16.0) g/dL Hct 38.8 (36.0-48.0) % MCV 87.4 (81.0-99.0) fL MCH 30.0 (26.7-34.0) pg MCHC 34.3 (29.9-35.2) g/dL RDW 12.2 (11.0-15.0) % Plt Count 215 (150-450) 10^3/uL MPV 10.0 (9.5-13.5) fL Neut % (Auto) 64.2 (43.0-75.0) % Lymph % (Auto) 27.2 (20.5-60.0) % [place] % (Auto) 7.8 (1.7-12.0) % Eos % (Auto) 0.1 L (0.9-7.0) % Baso % (Auto) 0.4 (0.2-2.0) % Neut # (Auto) 5.0 (1.4-6.5) 10^3/uL Lymph # (Auto) 2.1 (1.2-3.8) 10^3/uL [place] # (Auto) 0.6 (0.3-0.8) 10^3/uL Eos # (Auto) 0.0 (0.0-0.7) 10^3/uL Baso # (Auto) 0.0 (0.0-0.1) 10^3/uL Abs Immat Gran (auto) 0.02 (0.00-0.03) 10^3/uL Imm/Tot Granulo (auto) 0.3 (0.0-0.5) % Sodium 141 (136-145) mmol/L Potassium 3.5 (3.5-5.1) mmol/L Chloride 104 (98-107) mmol/L Carbon Dioxide 25.9 (21.0-32.0) mmol/L Anion Gap 14.6 BUN 11.0 (7.0-18.0) mg/dL Creatinine 0.99 (0.55-1.02) mg/dL Est GFR ( Amer) >60 (>=60 mL/min/1.73m^2) Est GFR (Non-Af Amer) >60 (>=60 mL/min/1.73m^2) BUN/Creatinine Ratio 11.1 Glucose 92 (74-106) mg/dL Lactate 2.3 H* (0.4-2.0) mmol/L Calcium 8.9 (8.5-10.1) mg/dL Magnesium 1.8 (1.8-2.4) mg/dL Total Bilirubin 0.7 (0.2-1.0) mg/dL AST 15 (15-37) U/L ALT 10 L (14-59) U/L Alkaline Phosphatase 54 (46-116) U/L Total Protein 7.0 (6.4-8.2) g/dL Albumin 4.1 (3.4-5.0) g/dL Globulin 2.9 g/dL Albumin/Globulin Ratio 1.4 Urine Opiates Screen Negative (NEGATIVE) Ur Buprenorphine Scrn Negative (NEGATIVE) Ur Oxycodone Screen Negative (NEGATIVE) Urine Methadone Screen Negative (NEGATIVE) Ur Barbiturates Screen Negative (NEGATIVE) U Tricyclic Antidepress Negative (NEGATIVE) Ur Phencyclidine Scrn Negative (NEGATIVE) Ur Amphetamines Screen Negative (NEGATIVE) U Methamphetamines Scrn Negative (NEGATIVE) U Benzodiazepines Scrn Positive A (NEGATIVE) Urine Cocaine Screen Negative (NEGATIVE) U Cannabinoids Screen Positive A (NEGATIVE) Ethanol Quant <3 mg/dL Critical Care Time Critical Care Time Critical Care Time: Yes Total Critical Care Time: 37 Attestation: Critical care time was needed for the treatment of prevention of clinically significant life-threatening loss of life, limb, or function. It included avoiding . Patient had no procedures performed during this time that would be included in the critical care time. He required emergent assessment with EMS. Discussing with EMS and family. Reviewing the patient's medical record. Document in the patient's medical record where they were in the emergency department and perform potentially life saving cognitive decisions to make certain that the patient did not deteriorate while in the emergency department. Discharge Plan Discharge Chief Complaint: Seizure Clinical Impression: Recurrent seizures, Breakthrough seizure [facility] Time of Disposition Decision: 00:30 Discharge Location: [facility] Condition: Fair Mode of Transportation: EMS
[2024-07-08] VITALS (101 sets, daily range): BP systolic 81–103; BP diastolic 35–59; PULSE 54–99; O2SAT 68–99
[2024-07-08 00:06] LABS: Amphetamine Screen Urine NEGATIVE (NEGATIVE); Barbiturates Screen Urine NEGATIVE (NEGATIVE); Benzodiazepines Screen Urine POSITIVE (NEGATIVE); Buprenorphine Screen Urine NEGATIVE (NEGATIVE); Cannabinoid Screen Urine POSITIVE (NEGATIVE); Cocaine Screen Urine NEGATIVE (NEGATIVE); Methadone Screen Urine NEGATIVE (NEGATIVE); Methamphetamines Screen Urine NEGATIVE (NEGATIVE); Opiate Screen Urine NEGATIVE (NEGATIVE); Oxycodone Screen Urine NEGATIVE (NEGATIVE); Phencyclidine Screen Urine NEGATIVE (NEGATIVE); Tricyclic Antidepressant Urine NEGATIVE (NEGATIVE)
[2024-07-08 00:57] LABS: Ethanol <3 mg/dL
[2024-07-08] MEDS: ONDANSETRON PF 4 MG/2 ML VIAL IV ×2 (02:16→02:30)
[2024-07-08] MEDS: LEVETIRACETAM 2,000 MG in 0.9 % SODIUM CHLORIDE 100 ML 480 MG IV (02:38)
[2024-07-08] MEDS: LEVETIRACETAM 500 MG in 0.9 % SODIUM CHLORIDE 100 ML 420 MG IV ×3 (02:55→03:25)
[2024-07-08] MEDS: LEVETIRACETAM 500 MG TABLET PO (08:31)
[2024-07-08] MEDS: ACETAMINOPHEN 325 MG TABLET 650 MG PO (10:56)
== END 2024-07-08 17:56 | disposition left against medical advice (07) ==
PROVIDERS: Emergency Medicine; Emergency Provider Emergency Medicine
DX: G40.909 Epilepsy, unspecified, not intractable, without status epilepticus (principal); Z53.29 Procedure and treatment not carried out because of patient's decision for other reasons; Z79.899 Other long term (current) drug therapy; F17.200 Nicotine dependence, unspecified, uncomplicated; F64.0 Transsexualism
CPT/HCPCS: 36415; 80053; 80307; 80320; 83605; 83735; 85025; 93005; 96365; 96375; 99285; J1953; J2405

== ENCOUNTER 2024-08-14 10:19 | Emergency (ER) | payer OTHER, SELFPAY ==
[2024-08-14] VITALS (8 sets, daily range): BP systolic 115–122; BP diastolic 79–92; PULSE 98–103; TEMP 37.4; O2SAT 99–100; BMI 20.6
--- NOTE | 2024-08-14 10:54 | PC.NURSE ---
Called to lobby by staff as patient was having seizure on floor. On arrival patient was laying on left side having seizure like movement. Patient was log rolled on to back and placed on back board. C collar applied. Patient is awake and alert at this time. C collar remains in place and patient remains on back board at this time. Skin pink and warm, respirations even and non labored. Patient is alert and oriented at this time.
[2024-08-14 11:30] LABS: Internal Control Within Normal Limits; Strep A Antigen Screen Negative
--- NOTE | 2024-08-14 11:32 | ECG_ITS ---
[facility] Test Date: 2024-08-14 Pat Name: BHAVNA VILLAR Department: Room: - Gender: Female Rail Transportation Operator: : 2000 Requested By: [id number] Order Number: [id number] Reading MD: JOYCELYN LAMAR Measurements Intervals [place] Rate: 96 P: 76 AK: 152 QRS: 89 QRSD: 84 T: 13 QT: 326 QTc: 380 Interpretive Statements 1100 Sinus rhythm 4068 Nonspecific [place] abnormality 6120 Possible right atrial enlargement 9130 borderline ECG Compared to ECG 07/07/2024 22:19:10 No significant changes Electronically Signed On 08-15-2024 7:04:28 EST by JOYCELYN LAMAR
[2024-08-14 11:36] LABS: Influenza Virus A Antigen Positive; Influenza Virus B Antigen Negative; Internal Control Within Normal Limits; SARS-CoV-2 Ag NEGATIVE (NEGATIVE)
[2024-08-14 12:31] LABS: Basophils Percent Auto 0.2 % (0.2-2.0); Hematocrit 44.7 % (36.0-48.0); Hemoglobin 15.2 g/dL (12.0-16.0); Immature Granulocytes Abs Auto 0.01 10^3/uL (0.00-0.03); Immature Granulocytes Pct Auto 0.2 % (0.0-0.5); Lymphocytes Absolute Auto 0.8 10^3/uL (1.2-3.8); Mean Corpuscular Hemoglobin 29.4 pg (26.7-34.0); Mean Corpuscular Volume 86.5 fL (81.0-99.0); Mean Platelet Volume 10.8 fL (9.5-13.5); Monocytes Absolute Auto 0.7 10^3/uL (0.3-0.8); Monocytes Percent Auto 16.2 % (1.7-12.0); Neutrophils Absolute Auto 2.9 10^3/uL (1.4-6.5); Neutrophils Percent Auto 65.4 % (43.0-75.0); Platelet Count 171 10^3/uL (150-450); Red Blood Count 5.17 10^6/uL (4.20-5.40); Red Cell Distribution Width 11.9 % (11.0-15.0); White Blood Count 4.4 10^3/uL (4.0-11.0)
[2024-08-14 12:39] LABS: HCG Qualitative NEGATIVE (NEGATIVE); Internal Control Within Normal Limits
[2024-08-14 12:54] LABS: Alanine Aminotransferase 15 U/L (14-59); Albumin Globulin Ratio 1.1; Albumin Level 4.3 g/dL (3.4-5.0); Alkaline Phosphatase 66 U/L (46-116); Anion Gap 13.5; Aspartate Amino Transferase 22 U/L (15-37); BUN Creatinine Ratio 10.3; Bilirubin Total 0.4 mg/dL (0.2-1.0); Calcium 9.3 mg/dL (8.5-10.1); Carbon Dioxide 25.3 mmol/L (21.0-32.0); Chloride 100 mmol/L (98-107); Estimated GFR (African America >60 (>=60 mL/min/1.73m^2); Estimated GFR (Non-African Ame >60 (>=60 mL/min/1.73m^2); Glucose 92 mg/dL (74-106); Potassium 3.8 mmol/L (3.5-5.1); Sodium 135 mmol/L (136-145); Total Protein 8.3 g/dL (6.4-8.2)
[2024-08-14] MEDS: 0.9 % SODIUM CHLORIDE 1,000 ML 1000 ML IV (12:57)
[2024-08-14] MEDS: ONDANSETRON PF 4 MG/2 ML VIAL IV (12:57)
--- NOTE | 2024-08-14 14:26 | ED_ITS ---
HPI HPI - General Adult General Chief complaint: Seizure Stated complaint: sob Time Seen by Provider: 08/14/24 11:55 Mode of arrival: ambulance History of Present Illness HPI narrative: 24-year-old self identifying male to the emergency department with chief complaint of breakthrough seizure. Patient reports that they have been ill with fever, malaise, body aches, cough, nasal congestion for several days. They report that they have breakthrough seizures when they are ill. No medications taken at home. Patient has been taking their antiepileptic drugs as prescribed. Had a seizure in the waiting room here. Related Data Home Medications ?Medication ?Instructions ?Recorded ?Confirmed clobazam 10 mg tablet 10 mg PO .qhs 08/23/23 07/07/24 midazolam 5 mg/spray (0.1 mL) 1 spray intranasal PRN PRN FOR 08/24/23 08/14/24 nasal spray (Nayzilam) SEIZURES metoprolol succinate 25 mg 25 mg PO DAILY 01/28/24 08/14/24 tablet,extended release 24 hr trazodone 100 mg tablet 200 mg PO .HS 01/28/24 08/14/24 dexmethylphenidate 5 mg 5 mg PO DAILY 07/07/24 07/07/24 capsule,extended release [id number] lamotrigine 200 mg tablet 200 mg PO Q12H 07/07/24 08/14/24 metformin 500 mg tablet,extended 500 mg PO BID 07/07/24 07/07/24 release 24 hr brivaracetam 100 mg tablet 100 mg PO BID 07/08/24 08/14/24 (Briviact) azelaic acid 15 % topical gel 1 applic topical DAILY 08/14/24 08/14/24 cyclobenzaprine 5 mg tablet 5 mg PO BID 08/14/24 08/14/24 ondansetron HCl 4 mg tablet 4 mg PO Q8H PRN nausea and vomiting 08/14/24 08/14/24 Allergies Allergy/AdvReac Type Severity Reaction Status Date / Time codeine Allergy Unknown Rash Verified 08/14/24 10:20 Opioid HPI Opioid Management Most Recent Opioid Data: Last Pain Scale 5 07/08/24 10:56 07/08/24 Ur Phencyclidine Scrn Negative (NEGATIVE) 07/07/24 23:48 06/27 07/21 Review of Systems ROS Status of ROS 10 or more systems reviewed and unremark able except as noted in history and below [facility] Social History Smoking status: Current every day smoker Little interest or pleasure in doing things: not at all Feeling down, depressed, or hopeless: not at all Exam Narrative Exam Narrative: VITALS: I have reviewed the triage vital signs. GENERAL: Well developed, well appearing adult male in no acute distress. NEURO: Alert and oriented x4. Moves all extremities. Face is symmetric and exp ressive. Cranial nerves II through XII grossly intact as tested. Muscular strength and sensation grossly intact upper and lower extremities bilaterally. No dysarthria. No aphasia. No ataxia. Normal gait. NIHSS 0. EYES: PERRL. No scleral icterus or conjunctival injection. No discharge. HENT: Normocephalic, atraumatic. Hearing is grossly intact. Nares grossly patent and without discharge. Mucous membranes moist. NECK: No JVD. Patient moves neck without restriction. No midline cervical tenderness. Mild lateral tenderness. No meningismus CARDIO: Rhythm regular. Normal rate. No murmur, rub, or gallop. Pulses equal bilaterally in the upper and lower extremity. No lower extremity edema. PULM: Lungs clear to auscultation in all brown. No wheezes, rales, or rhonchi. No conversational dyspnea. No splinting, stridor, or accessory muscle use. GI/: Abdomen is soft and non-tender. Normoactive bowel sounds. EXTREMITIES: Symmetric muscle bulk. No joint swelling. No clubbing, cyanosis, or deformity. No thoracic or lumbar tenderness. SKIN: Warm and dry. Normal turgor. No rash or lesions appreciated. PSYCH: Mood, affect, and interaction is appropriate to the setting. Constitutional Vital Signs, click to edit/add: Last Vital Signs Temp 99.4 F 08/14/24 10:41 Pulse 99 H 08/14/24 11:00 Resp 19 08/14/24 11:00 BP 122/92 H 08/14/24 10:48 Pulse Ox 100 08/14/24 11:00 O2 Del Method Room Air 08/14/24 10:42 Course Vital Signs Vital signs: Vital Signs Blood Pressure 116/79 08/14/24 10:38 Temperature 99.4 F 08/14/24 10:41 Pulse Rate 99 H 08/14/24 11:00 Respiratory Rate 19 08/14/24 11:00 Blood Pressure 122/92 H 08/14/24 10:48 Pulse Oximetry 100 08/14/24 11:00 Oxygen Delivery Method Room Air 08/14/24 10:42 Medical Decision Making MDM Narrative Medical decision making narrative: Well-appearing 24-year-old self identifying male, biologic female to the emergency department with chief complaint of breakthrough seizure and flulike illness. Vital stable, the patient is afebrile. Neurologically the patient is intact. Has some mild neck pain. Did hit head during a seizure episode. Imaging of the head and neck are ordered. Basic labs. Patient agrees with this plan. CT head: No acute findings CT cervical: No acute findings Chest x-ray: No acute finding Lab work reviewed and noted. There are no major abnormalities. Patient reevaluated. He feels improved. No further seizure activity in the ED. The patient discussed with her neurologist Dr. Easton via telephone while in the emergency department. They have an appointment on Tuesday for follow-up for these breakthrough seizures. I recommended avoidance of situations that could become dangerous if they had a seizure in the meantime. Treatment of fever. Continuing antiepileptics. Patient agrees with this plan. They would like discharge home. Patient was discharged home at their request. Medical Records Medical records reviewed: Yes I reviewed the patient's medical records Lab Data Lab results reviewed: Yes I reviewed the patient's lab results Labs: Lab Results 08/14/24 08/14/24 Range/Units 10:57 11:05 WBC 4.4 (4.0-11.0) 10^3/uL RBC 5.17 (4.20-5.40) 10^6/uL Hgb 15.2 (12.0-16.0) g/dL Hct 44.7 (36.0-48.0) % MCV 86.5 (81.0-99.0) fL MCH 29.4 (26.7-34.0) pg MCHC 34.0 (29.9-35.2) g/dL RDW 11.9 (11.0-15.0) % Plt Count 171 (150-450) 10^3/uL MPV 10.8 (9.5-13.5) fL Neut % (Auto) 65.4 (43.0-75.0) % Lymph % (Auto) 18.0 L (20.5-60.0) % Windham % (Auto) 16.2 H (1.7-12.0) % Eos % (Auto) 0.0 L (0.9-7.0) % Baso % (Auto) 0.2 (0.2-2.0) % Neut # (Auto) 2.9 (1.4-6.5) 10^3/uL Lymph # (Auto) 0.8 L (1.2-3.8) 10^3/uL Windham # (Auto) 0.7 (0.3-0.8) 10^3/uL Eos # (Auto) 0.0 (0.0-0.7) 10^3/uL Baso # (Auto) 0.0 (0.0-0.1) 10^3/uL Abs Immat Gran (auto) 0.01 (0.00-0.03) 10^3/uL Imm/Tot Granulo (auto) 0.2 (0.0-0.5) % Sodium 135 L (136-145) mmol/L Potassium 3.8 (3.5-5.1) mmol/L Chloride 100 (98-107) mmol/L Carbon Dioxide 25.3 (21.0-32.0) mmol/L Anion Gap 13.5 BUN 11.0 (7.0-18.0) mg/dL Creatinine 1.07 H (0.55-1.02) mg/dL Est GFR ( Amer) >60 (>=60 mL/min/1.73m^2) Est GFR (Non-Af Amer) >60 (>=60 mL/min/1.73m^2) BUN/Creatinine Ratio 10.3 Glucose 92 (74-106) mg/dL Calcium 9.3 (8.5-10.1) mg/dL Total Bilirubin 0.4 (0.2-1.0) mg/dL AST 22 (15-37) U/L ALT 15 (14-59) U/L Alkaline Phosphatase 66 (46-116) U/L Total Protein 8.3 H (6.4-8.2) g/dL Albumin 4.3 (3.4-5.0) g/dL Globulin 4.0 g/dL Albumin/Globulin Ratio 1.1 Lipase 21.0 (16.0-77.0) U/L Serum HCG, Qual Negative (NEGATIVE) Influenza Type A Ag Positive A Influenza Type B Ag Negative SARS-CoV-2 Ag (CV2AG) Negative (NEGATIVE) Streptococcus Screen Negative Imaging Data CT scan - head: Attestation: I have reviewed the pertinent imaging results. ECG Data Attestation: I personally reviewed and interpreted this ECG as follows: (Normal sinus rhythm at a rate of 96. No STEMI. Normal QTc at 380) Discharge Plan Discharge Chief Complaint: Seizure Clinical Impression: Recurrent seizures, Influenza A Patient Disposition: Home, Self-Care Time of Disposition Decision: 14:19 Condition: Good Mode of Transportation: Private Vehicle Prescriptions / Home Meds: No Action clobazam 10 mg tablet 10 mg PO .qhs Nayzilam 5 mg/spray (0.1 mL) spray,non-aerosol 1 spray INTRANASAL PRN PRN (Reason: FOR SEIZURES) metoprolol succinate 25 mg tablet extended release 24 hr 25 mg PO DAILY trazodone 100 mg tablet 200 mg PO .HS lamotrigine 200 mg tablet 200 mg PO Q12H metformin 500 mg tablet extended release 24 hr 500 mg PO BID dexmethylphenidate 5 mg capsule,ER biphasic 50-50 5 mg PO DAILY Briviact 100 mg tablet 100 mg PO BID azelaic acid 15 % gel 1 applic TOPICAL DAILY cyclobenzaprine 5 mg tablet 5 mg PO BID ondansetron HCl 4 mg tablet 4 mg PO Q8H PRN (Reason: nausea and vomiting) Print Language: Yoruba Instructions: Influenza (ED), Recurrent Seizures in Adults (ED) Additional Instructions: Call the office of your primary care doctor to arrange for follow-up within the above-stated timeframe. Your ED visit was focused on your acute issue and does not replace primary care. You should review your labs, imaging, and diagnoses from this ED visit with your primary care physician. There may be non-emergent/ incidental findings that need further evaluation. You should review your vital signs including blood pressure with your PCP. If you were prescribed medications you should discuss possible side-effects and drug interactions with your pharmacist. Call 911 or go to the nearest Emergency Department if you develop any new or worsening symptoms. Seek immediate medical attention if you develop: additional seizures, fever, headache, nausea, vomiting, weakness, numbness, tingling, loss of motion in your arms or legs, chest pain, shortness of breath, or any new or worsening symptoms. Do not do any activities where it would be dangerous if you had a seizure. These activities include, but are not limited to: driving, operating machinery, swimming alone, bathing alone, riding a bike, rock climbing, etc.... Use caution when you are around stairs or other situations where it would be dangerous if you had a seizure. You are responsible for reporting your seizure to the [facility]. You should not drive a vehicle until cleared to do so by your doctor or your neurologist. Losing consciousness behind the wheel can be deadly for you and other people on the road. Seek immediate medical attention if you develop: new or worsening headache, nausea, vomiting, confusion, weakness, loss of motion in your arms or legs, loss of control of your urine or stool, difficulty waking from sleep, or any new or worsening symptoms. Referrals: KAVIN FRENCH [Primary Care Provider] - 1 week
[2024-08-14] MEDS: KETOROLAC TROMETHAMINE 30 MG/ML VIAL 15 MG IVP (14:27)
== END 2024-08-14 14:41 | disposition home or self-care (01) ==
PROVIDERS: Emergency Provider Student in an Organized Health Care Education/Training Program; PCP Family Medicine
DX: R56.9 Unspecified convulsions (principal); J10.1 Influenza due to other identified influenza virus with other respiratory manifestations; F17.200 Nicotine dependence, unspecified, uncomplicated; M54.2 Cervicalgia; Z79.899 Other long term (current) drug therapy
CPT/HCPCS: 36415; 70450; 70551; 71045; 72125; 72141; 80053; 81001; 82948; 83690; 84703; 85025; 87070; 87804; 87811; 87880; 93005; 96374; 96375; 99285; J1885; J2405

== ENCOUNTER 2024-11-22 12:51 | Outpatient (OUT) | payer OTHER, SELFPAY ==
--- OUTSIDE RECORDS SUMMARY | 2024-08-01 06:30 | XMS_ITS ---
Author Organization [facility] Address [address] [facility] [place] [address] Care Team Providers Care Fire Production Operator Name Role Phone Dr. Aman Henson Primary Care Provider [phone] Mahad Tania Cooper [phone] REASON FOR VISIT DEBRIDEMENT Encounters Encounter Location Date Provider Diagnosis [facility] [address] [place] [address] 08/01/2024 Tania Cooper Plan Of Treatment No Information Progress Notes * BHAVNA VILLAR (LIZY) MDOB :2000 (24 yo F)Acc No.[id number]:08/01/2024 Patient: Carmina JAMA BHAVNA KeyonnaLIZY) Kp Provider: Cielo Cooper :2000 A ge:24 Y S ex:Female Date:08/01/2024 Address:[address] [place], [place] [id number] Pcp:Dr. Aman Henson Subjective: * Chief Complaints: * 1 . DEBRIDEMENT. * Medical History: Objective: * Vitals: Assessment: Plan: * Treatment: * Images: * Electronic signature of Elida Cooper on 11/22/2024 at 12:54 PM EDT Sign off status: Pending * Provider: Cielo Cooper Date: 08/01/2024 Generated for Printi ng/Faxing/eTransmitting on: 0 11/22/2024 12:54 PM EDT
--- OUTSIDE RECORDS SUMMARY | 2024-09-04 05:45 | XMS_ITS ---
Author Organization [facility] Address [address] [facility] [place] [address] Care Team Providers Care Education General Manager Name Role Phone Dr. Aman Henson Primary Care Provider [phone] Mahad CooperYarelyTaniamary kay Kamara [phone] REASON FOR VISIT DEBRIDEMENT + PERIO CHART RE EVAL TX PLAN Encounters Encounter Location Date Provider Diagnosis [facility] [address] [facility] [place] [address] 09/04/2024 Tania Cooper Plan Of Treatment No Information Progress Notes * BHAVNA VILLAR (LIZY) MDOB :2000 (24 yo F)Acc No.[id number]:09/04/2024 Patient: BHAVNA ESPANA (EASTON) Provider: Cielo Cooper :2000 A ge:24 Y S ex:Female Date:09/04/2024 Address:[address] [place], [place] [id number] Pcp:Dr. Aman Henson Subjective: * Chief Complaints: * 1 . DEBRIDEMENT + PERIO CHART RE EVAL TX PLAN. * Medical History: Objective: * Vitals: Assessment: Plan: * Treatment: * Images: * Electronic signature of Elida Cooper on 11/22/2024 at 12:54 PM EDT Sign off status: Pending * Provider: Cielo Cooper Date: 0 09/04/2024 Generated for Printi ng/Faxing/eTransmitting on: 0 11/22/2024 12:54 PM EDT
--- OUTSIDE RECORDS SUMMARY | 2024-10-11 06:05 | XMS_ITS ---
Author Organization [facility] Address [address] [place] [address] Care Team Providers Care Assembly Worker Name Role Phone Dr. Aman Henson Primary Care Provider Do Sharp [phone] REASON FOR VISIT EXT Encounters Encounter Location Date Provider Diagnosis [facility] [address] [facility] [place] [address] 10/11/2024 Do Sharp Plan Of Treatment No Information Progress Notes * BHAVNA VILLAR (LIZY) MDOB :2000 (24 yo F)Acc No.[id number]:10/11/2024 Patient: Carmina JAMA BHAVNA WALDEMAR) Kp Provider: Justin Sharp :2000 A ge:24 Y S ex:Female Date:10/11/2024 Address:[address] [place], [place] [id number] Pcp:Dr. Aman Henson Subjective: * Chief Complaints: * 1 . EXT. * Medical History: Objective: * Vitals: Assessment: Plan: * Treatment: * Images: * Electronic signature of Anderson Sharp DMD on 11/22/2024 at 12:55 PM EDT Sign off status: Pending * Provider: Justin Sharp Date: 0 10/11/2024 Generated for Printi ng/Faxing/eTransmitting on: 0 11/22/2024 12:55 PM EDT
--- OUTSIDE RECORDS SUMMARY | 2024-11-15 20:00 | XMS_ITS | Encounter Summary ---
Author Organization [facility] tem Address [id number] [address] [place] [address] Care Team Providers Care Clerk Analyst Name Role Phone Eric Isbell DO Primary Care Provider [phone] Reason for Visit * Misc (Routine) - Closed Specialty Diagnoses / Procedures Referred By Contac t Referred To Contact Diagnoses Sleep disorder Procedures PSG Diagnostic Lavonne Davies, MEDICAL EDUCATOR-[facility] [address] [facility] [address] [address] Phone: tel: fax: [address] [address] Phone: tel: Referral ID Status Reason Start Date Expiration Date Visits Re quested Visits Authorized [id number] Closed 10/12/2024 10/12/2025 1 1 Encounter Details Date Type Department Care Team (Late st Contact Info) Description 11/15/2024 8:00 PM EDT Clinical Support [facility] - Sleep Disorders [address] [place] [address] Sleep disorder Social History Tobacco Use Types Packs/Day Years Used Date Smoking Tobacco: Never Smokeless Tobacco: Never Alcohol Use Standard Drinks/Week Comments Not Currently 0 (1 standard drink = 0.6 oz pur e alcohol) [facility] Utilities Answer Date Recorded In the past 12 months has [employer] electric, gas, oil, or water company threatened to shut off services in your home? No 11/25/2023 AUDIT-C Answer Date Recorded Q1: How often do you have a drink containing alc ohol? Monthly or less 11/25/2023 Q2: How many drinks containi ng alcohol do you have on a typical day when you are drinking? 1 or 2 11/25/2023 Q3: How often do you have si x or more drinks on one occasion? Never 11/25/2023 PHQ-2 Answer Date Recorded Total Score 0 11/25/2023 PRAPARE - Transportation Answer Date Re corded In the past 12 months, has l ack of transportation kept you from medical appointments or from getting medications? No 10/27 In the past 12 months, has l ack of transportation kept you from meetings, work, or from getting things needed for daily living? No 11/25/2023 Housing Instability Answer Date Recorde d Are you worried or concerned that in the next two months you may not have stable housing that you own, rent or stay in as a part of a household? No 11/25/2023 Childcare Answer Date Recorded Childcare Unknown 03/12/2020 Employment Answer Date Recorded Employment Unknown 03/12/2020 Hunger Screening Answer Date Recorded Within the past 12 months we worried whether our food would run out before we got money to buy more. Never True 08/16/2024 Within the past 12 months th e food we bought just didn't last and we didn't have money to get more. Never True 08/16/2024 Purpose - Life Answer Date Recorded Purpose and direction in life Unknown Comments No Sex and Gender Information Value Date Recorded Sex Assigned at Female 10/12/2020 2:44 PM EDT Legal Sex Female 3:31 PM EDT Gender Identity Male 10/12/2020 2:44 PM EDT Sexual Orientation Not on file documented as of this encounter Last Filed Vital Signs Vital Sign Reading Time Taken Comments Blood Pressure - - Pulse - - Temperature - - Respiratory Rate - - Oxygen Saturation - - Inhaled Oxygen Concentration - - Weight 44.9 kg (99 lb) 11/15/2024 9:16 PM EDT Height 157.5 cm (5' 2 ) 11/15/2024 9:16 PM EDT Body Mass Index 18.11 11/15/2024 9:16 PM EDT documented in this encounter Plan of Treatment Upcoming Encounters Date Type Department Care Team (Late st Contact Info) Description 12/24/2024 2:45 PM EDT Office Visit [facility] [address] [place] [id number] Logan Mckeon MD [address] [place] [address] documented as of this encounter Goals Goal Patient Goal Type Associated Problems Recent Progress Patient-Stated? Author <enter goal here> General Yes Jeanna Damon, OPEN TENTER OPERATOR Note: Evaluation of progress towards goal: home with family, self care goal General Yes Rosalee Chavez, RN Note: Evaluation of progress towards goal: Patients goal is to have a safe discharge. documented as of this encounter Procedures Procedure Name Priority Date/Time Associated Diagnosis Comments POLYSOMNOGRAPHY 4 OR MORE PARAMETERS Routine 11/15/2024 10:21 PM EDT Sleep disorder documented in this encounter Results * PSG Diagnostic (11/15/2024 10:21 PM EDT) 11/15/2024 10:2 1 PM EDT Narrative SLEEPLAB - 11/16/2024 10:15 AM EDT INTERPRETED us Lavonne Davies MEDICAL EDUCATOR-[facility] Final Result SLEEPLAB documented in this encounter Visit Diagnoses Diagnosis Sleep disorder Unspecified sleep disturbance documented in this encounter Additional Health Concerns Assessment Noted Time PHQ-9 Depression Total Score: 0 11/25/19 24 12:53 PM EDT documented as of this encounter Care Teams Clerk Analyst Relationship Specialty Start Date End Date Eric Isbell DO [address] [place] [address] PCP - General Family Medicine 08/16/24 documented as of this encounter
--- OUTSIDE RECORDS SUMMARY | 2024-11-22 12:54 | XMS_ITS | Encounter Summary ---
Author Organization [employer] Address [id number] [place] [address] Care Team Providers Care Environment Friendly Landscape Designer Name Role Phone Eric Isbell Primary Care Provider [phone] Reason for Referral * Diagnostic Imaging (Routine) - Pending Review Specialty Diagnoses / Procedures Referred By Contac t Referred To Contact Radiology Diagnoses Pain Procedures CT brain without contrast [facility] [place] [address] Phone: tel: fax: Referral ID Status Reason Start Date Expiration Date V isits Requested Visits Authorized [id number] Pending Review 11/25/2023 11/24/2024 1 1 * Diagnostic Imaging (Routine) - Pending Review Specialty Diagnoses / Procedures Referred By Contac t Referred To Contact Radiology Diagnoses Pain Procedures CT cervical spine without contrast [facility] [place] [address] Phone: tel: fax: Referral ID Status Reason Start Date Expiration Date V isits Requested Visits Authorized [id number] Pending Review 11/25/2023 11/24/2024 1 1 Encounter Details Date Type Department Care Team (Late st Contact Info) Description 11/25/2023 Orders Only [facility] [place] [address] Transcribe, Orders Support User Pain (Primary Dx) Social History Tobacco Use Types Packs/Day Years Used Date Smoking Tobacco: Never Smokeless Tobacco: Never Alcohol Use Standard Drinks/Week Comments Not Currently 0 (1 standard drink = 0.6 oz pur e alcohol) [facility] Utilities Answer Date Recorded In the past 12 months has th e electric, gas, oil, or water company threatened [...] got money to buy more. Never True 11/25/2023 Within the past 12 months th e food we bought just didn't last and we didn't have money to get more. Never True 11/25/2023 Purpose - Life Answer Date Recorded Purpose and direction in life Unknown Comments No Sex and Gender Information Value Date Recorded Sex Assigned at Female 10/12/2020 2:44 PM EDT Legal Sex Female 3:31 PM EDT Gender Identity Male 10/12/2020 2:44 PM EDT Sexual Orientation Not on file documented as of this encounter Functional Status * Audit-C Score Answer Date of Assessment Author 1 11/25/2023 12:52 PM Leila Grace RN * Intimate Partner Violence Question Answer Date of Assessment Author Within the last year, have y ou been humiliated or emotionally abused in other ways by your partner or ex-partner? No 11/25/2023 1:05 PM Matty Mckinney RN Within the last year, have y ou been afraid of your partner or ex-partner? No 11/25/2023 1:05 PM Herbie Mckinney RN Within the last year, have y ou been raped or forced to have any kind of sexual activity by your partner or ex-partner? No 11/25/2023 1:05 PM Leila Mckinney RN Within the last year, have y ou been kicked, hit, slapped, or otherwise physically hurt by your partner or ex-partner? No 11/25/2023 1:05 PM Leila Mckinney RN * Question Answer Date of Assessment Author Q1: How often do you have a drink containing alcohol? Monthly or less 11/25/2023 12:52 PM Efrain Mckinney RN Q2: How many drinks containing alcohol do you have on a typical day when you are drinking? 1 or 2 11/25/2023 12:52 PM Pramod Mckinney RN Q3: How often do you have six or more drinks on one occasion? Never 11/25/2023 12:52 PM Efrain Mkcinney RN * Question Answer Date of Assessment Author Functional Status Independent 11/25/2023 12:48 PM Leila Mckinney RN documented as of this encounter Mental Status * Question Answer Entry Date Author Overall Cognitive Status X 11/25/2023 9:53 AM EDT Luly Patricia, OTR/L documented in this encounter Plan of Treatment Upcoming Encounters Date Type Department Care Team (Late st Contact Info) Description 12/24/2024 2:45 PM EDT Office Visit [facility] [address] [place] [address] [place] [phone] Logan Mckeon MD [address] [facility] [place] [place] [address] documented as of this encounter Goals Goal Patient Goal Type Associated Problems Recent Progress Patient-Stated? Author <enter goal here> General Yes Jeanna Damon, MILL ATTENDANT Note: Evaluation of progress towards goal: home with family, self care goal General Yes Rosalee Chavez, RN Note: Evaluation of progress towards goal: Patients goal is to have a safe discharge. documented as of this encounter Results * CT cervical spine without contrast (11/24/2023 5:25 PM EDT) us Scanning Provider External IMG CT ORDERABLES Fin al Result * CT brain without contrast (11/24/2023 5:20 PM EDT) us Scanning Provider External IMG CT ORDERABLES Fin al Result documented in this encounter Visit Diagnoses Diagnosis Pain- Primary Generalized pain documented in this encounter Additional Health Concerns Infection Onset Date Last Indicated Resolved Time Respiratory Rule-Out 08/16/2024 08/16/2024 025 12:59 PM EST Assessment Noted Time PHQ-9 Depression Total Score: 0 11/25/19 24 12:53 PM EDT documented as of this encounter Care Teams Environment Friendly Landscape Designer Relationship Specialty Start Date End Date Eric Isbell DO [address] [place] [address] PCP - General Family Medicine 08/16/24 documented as of this encounter
--- OUTSIDE RECORDS SUMMARY | 2024-11-22 12:54 | XMS_ITS | Encounter Summary ---
Author Organization [id number] [address] [place] [address] Care Team Providers Care Assistant Manager Retail Name Role Phone Eric Isbell DO Primary Care Provider [phone] Reason for Visit * Reason Onset Date Comments Appointment 10/19/2021 Encounter Details Date Type Department Care Team ([facility] Contact Info) Description 10/19/2021 Telephone [facility] [address] [place] [address] Carlene Skinner Appointment Social History Tobacco Use Types Packs/Day Years Used Date Smoking Tobacco: Never Smokeless Tobacco: Never Alcohol Use Standard Drinks/Week Comments Not Currently 0 (1 standard drink = 0.6 oz pur e alcohol) Childcare Answer Date Recorded Childcare Unknown 03/12/2020 Employment Answer Date Recorded Employment Unknown 03/12/2020 Purpose - Life Answer Date Recorded Purpose and direction in life Unknown Comments No Sex and Gender Information Value Date Recorded Sex Assigned at Female 10/12/2020 2:44 PM EDT Legal Sex Female 3:31 PM EDT Gender Identity Male 10/12/2020 2:44 PM EDT Sexual Orientation Not on file COVID-19 Exposure Response Date Recorded In the last 10 days, have yo u been in contact with someone who was confirmed or suspected to have Coronavirus/COVID-19? No / Unsure 10/15/2021 1:45 PM EDT documented as of this encounter Miscellaneous Notes * Telephone Encounter - Carlene Skinner - 10/19/2021 2:51 PM EDT Received new patient referral. Please call patient to schedule a new patient appointment for Epilepsy, nonconvulsive . *[place]? Please make sure to verify patient insurance. * Telephone Encounter - Brenton Miller - 10/19/2021 2:51 PM EDT Patient scheduled 12/11/21 w/ [facility] in [place]. Paperwork sent: 10/19/21 [facility] Insurance rajesh [place] * Telephone Encounter - Sharlene Noble - 10/19/2021 2:51 PM EDT Carlita - Dr. Garcia's office contacted our clinic requesting that the patient is seen much sooner than his new patient appointment scheduled for 12/11. She states that the patient has a kidney stone that must be removed but Dr. Garcia requires neurological clearance prior to this procedure. The patient is currently added to the waitlist since there are no sooner appointments. Please contact Carlita at [phone], option 2. Thanks! * Telephone Encounter - Karo Cummins CMA - 10/19/2021 2:51 PM EDT Called patient to move new appointment up to 11/04/21 at 11am to get neurological clearance for surgery and he aggred to this. I then called Elke with and got no answer but I left a voice mail letting her know that his appointment has been moved up. documented in this encounter Plan of Treatment Upcoming Encounters Date Type Department Care Team (Late st Contact Info) Description 12/24/2024 2:45 PM EDT Office Visit [facility] [address] [facility] [address] [phone] Logan Mckeon MD [address] [place] [address] documented as of this encounter Visit Diagnoses Not on filedocumented in this encounter Additional Health Concerns Infection Onset Date Last Indicated Resolved Time Respiratory Rule-Out 08/16/2024 08/16/2024 025 12:59 PM EST documented as of this encounter Care Teams Assistant Manager Retail Relationship Specialty Start Date End Date Eric Isbell DO [address] [place] [address] PCP - General Family Medicine 08/16/24 documented as of this encounter
--- OUTSIDE RECORDS SUMMARY | 2024-11-22 12:55 | XMS_ITS | Encounter Summary ---
Author Organization [facility] Address [address] [place] [id number] Care Team Providers Care Fur Trapper Name Role Phone House Sr., Eric BUCKELY Primary Care Provider + Source Comments In the event this information is protected by the Federal Confidentiality of Alcohol and Drug AbusePatient Records regulations: The Federal rules restrict any use of the information to criminally investigate or prosecute any alcohol or drug abuse patient.[facility] Encounter Details Date Type Department Care Team (Late st Contact Info) Description 10/07/2020 Get Medical Advice Plastic Surgery [address] [phone] [place] [address] [place] [phone] RE: Medication Question (Not Renewal) Social History Tobacco Use Types Packs/Day Years Used Date Smoking Tobacco: Never Smokeless Tobacco: Never Area Deprivation Index Answer Date Jem rded National Score (1-100), lower number is lower ri sk Not on file 06/02/2020 State Score (1-10), lower number is lower risk N ot on file 06/02/2020 Data from: https://www.neighborhoodatlas.medicine.[facility]/. Last address used for calculation Not on file 06/02/2020 Comments Unknown Sex and Gender Information Value Date Recorded Sex Assigned at Female 09/04/2018 2:58 PM EDT Legal Sex Female 10:19 AM EST Gender Identity Transgender Male 09/04/2018 2:58 PM EDT Sexual Orientation Lesbian or Corral 09/04/2018 2: 58 PM EDT COVID-19 Exposure Response Date Recorded In the last month, have you been in contact with someone who was confirmed or suspected to have Coronavirus / COVID-19? Unable to assess 09/23/2020 10:20 AM EDT documented as of this encounter Functional Status * Are you deaf or do you have serious difficulty hearing? Answer Date of Assessment Author No 12/11/2019 12:44 PM EDT Cielo Hurley RN * Are you blind or do you have serious difficulty seeing, even when wearing glasses? Answer Date of Assessment Author No 12/11/2019 12:44 PM EDT Cielo Hurley RN * Do you have serious difficulty walking or climbing stairs? Answer Date of Assessment Author No 12/11/2019 12:44 PM EDT Cielo Hurley RN * Do you have difficulty dressing or bathing? Answer Date of Assessment Author No 12/11/2019 12:44 PM EDT Cielo Hurley RN * Because of a physical, mental, or emotional condition, do you have difficulty doing errands alone such as visiting a doctor's office or shopping? Answer Date of Assessment Author No 12/11/2019 12:44 PM EDT Cielo Hurley RN documented as of this encounter Mental Status * Because of a physical, mental, or emotional condition, do you have serious difficulty concentrating, remembering, or making decisions? Answer Entry Date Author No 12/11/2019 12:44 PM [facility]ENAT Cielo Hurley RN documented in this encounter Plan of Treatment Not on file documented as of this encounter Visit Diagnoses Not on filedocumented in this encounter Additional Health Concerns Infection Onset Date Last Indicated Resolved Time COVID-19 Rule-Out 11/26/2020 12/01/2020 12/02/2020 1:45 PM EDT documented as of this encounter Care Teams Fur Trapper Relationship Specialty Start Date End Date Eric Isbell Sr., DO PCP - General Family Medicine 03/29/19 documented as of this encounter
--- OUTSIDE RECORDS SUMMARY | 2024-11-22 12:55 | XMS_ITS | Encounter Summary ---
Author Organization [facility] Address [address] [place], [place] [id number] Care Team Providers Care Pilot Manager Name Role Phone House Sr., Eric BUCKLEY Primary Care Provider + Source Comments In the event this information is protected by the Federal Confidentiality of Alcohol and Drug AbusePatient Records regulations: The Federal rules restrict any use of the information to criminally investigate or prosecute any alcohol or drug abuse patient.[facility] Encounter Details Date Type Department Care Team (Late st Contact Info) Description 06/02/2020 Get Medical Advice PSYC CHILD [facility] [address] [place] [address] [place] [address] [place], [place] [phone] RE: Non-Urgent Medical Question Social History Tobacco Use Types Packs/Day Years Used Date Smoking Tobacco: Never Smokeless Tobacco: Never Area Deprivation Index Answer Date Jem rded National Score (1-100), lower number is lower ri sk Not on file 06/02/2020 State Score (1-10), lower number is lower risk N ot on file 06/02/2020 Data from: https://www.neighborhoodatlas.medicine.[facility]/. Last address used for calculation Not on file 06/02/2020 Comments Unknown Sex and Gender Information Value Date Recorded Sex Assigned at Female 09/04/2018 2:58 PM EDT Legal Sex Female 10:19 AM EST Gender Identity Transgender Male 09/04/2018 2:58 PM EDT Sexual Orientation Lesbian or Corral 09/04/2018 2: 58 PM EDT documented as of this encounter Functional [...] Entry Date Author No 12/11/2019 12:44 PM EDT Cielo Hurley RN documented in this encounter Plan of Treatment Not on file documented as of this encounter Visit Diagnoses Not on filedocumented in this encounter Additional Health Concerns Infection Onset Date Last Indicated Resolved Time COVID-19 Rule-Out 11/26/2020 12/01/2020 12/02/2020 1:45 PM EDT documented as of this encounter Care Teams Pilot Manager Relationship Specialty Start Date End Date Eric Isbell Sr., DO PCP - General Family Medicine 03/29/19 documented as of this encounter
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
--- OUTSIDE RECORDS SUMMARY | 2024-11-22 12:55 | XMS_ITS | Encounter Summary ---
Author Organization [facility] [employer] Address [id number] [address] [place] [address] Care Team Providers Care State Appellate Clerk Name Role Phone Eric Isbell DO Primary Care Provider [phone] Encounter Details Date Type Department Care Team (Late Contact Info) Description 07/14/2023 Orders Only [facility] [address] [place] [address] External, Scanning Provider Social History Tobacco Use Types Packs/Day Years [...] got money to buy more. Never True 01/20/2023 Within the past 12 months th e food we bought just didn't last and we didn't have money to get more. Never True 01/20/2023 Purpose - Life Answer Date Recorded Purpose and direction in life Unknown Comments No Sex and Gender Information Value Date Recorded Sex Assigned at Female 10/12/2020 2:44 PM EDT Legal Sex Female 3:31 PM EDT Gender Identity Male 10/12/2020 2:44 PM EDT Sexual Orientation Not on file documented as of this encounter Plan of Treatment Upcoming Encounters Date Type Department Care Team ([facility] Contact Info) Description 12/24/2024 2:45 PM EDT Office Visit [facility] [address] [place] [address] Logan Mckeon MD [address], [place] [id number] documented as of this encounter Procedures Procedure Name Priority Date/Time Associated Diagnosis Comments CT ABDOMEN AND PELVIS WO CONT Routine 05/12/2023 11:25 AM EST documented in this encounter Results * CT abdomen and pelvis without contrast (05/12/2023 11:25 AM EST) Anatomical Region Laterality Modality Body, Abdomen, Body Covera N/A Compu manjula Tomography us Scanning Provider External IMG CT ORDERABLES Enrike manjula Result - Final documented in this encounter Visit Diagnoses Not on filedocumented in this encounter Additional Health Concerns Infection Onset Date Last Indicated Resolved Time Respiratory Rule-Out 08/16/2024 08/16/2024 025 12:59 PM EST documented as of this encounter Care Teams State Appellate Clerk Relationship Specialty Start Date End Date Eric Isbell DO [address] [place] [address] PCP - General Family Medicine 08/16/24 documented as of this encounter
--- OUTSIDE RECORDS SUMMARY | 2024-11-22 12:55 | XMS_ITS | Encounter Summary ---
Author Organization [employer] Address [id number] [address] [place] [address] Care Team Providers Care Coremaker Pipe Name Role Phone Eric Isbell DO Primary Care Provider [phone] Encounter Details Date Type Department Care Team ([facility] Contact Info) Description 11/04/2021 Telephone [facility] [address] [place] [address] Ana Cat CNA Social History Tobacco Use Types Packs/Day Years [...] suspected to have Coronavirus/COVID-19? No / Unsure 11/04/2021 11:03 AM EDT documented as of this encounter Plan of Treatment Upcoming Encounters Date Type Department Care Team ([facility] Contact Info) Description 12/24/2024 2:45 PM EDT Office Visit [facility] [address] [place] [address] Logan Mckeon MD [address] [place] [address] documented as of this encounter Visit Diagnoses Not on filedocumented in this encounter Additional Health Concerns Infection Onset Date Last Indicated Resolved Time Respiratory Rule-Out 08/16/2024 08/16/2024 025 12:59 PM EST documented as of this encounter Care Teams Coremaker Pipe Relationship Specialty Start Date End Date Eric Isbell DO [address] [place] [id number] PCP - General Family Medicine 08/16/24 documented as of this encounter
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
--- OUTSIDE RECORDS SUMMARY | 2024-11-22 12:55 | XMS_ITS | Encounter Summary ---
Author Organization [facility] Address [address] [place] [address] Care Team Providers Care Multigraph Operator Name Role Phone House Sr., Eric BUCKLEY Primary Care Provider + Source Comments In the event this information is protected by the Federal Confidentiality of Alcohol and Drug AbusePatient Records regulations: The Federal rules restrict any use of the information to criminally investigate or prosecute any alcohol or drug abuse patient.[facility] Encounter Details Date Type Department Care Team (Late st Contact Info) Description 05/12/2020 Get Medical Advice PSYC CHILD [facility] [address] [address] [place] [address] [place] [address] [place], [place] [id number] RE: Non-Urgent Medical Question Social History Tobacco Use Types Packs/Day Years Used Date Smoking Tobacco: Never Smokeless Tobacco: Never Comments Unknown Sex and Gender Information Value [...] Cielo Hurley RN documented in this encounter Miscellaneous Notes * Telephone Encounter - Quentin Rinaldi - 05/12/2020 4:43 PM EST Switching cymbalta to effexor xr. Signed Prescriptions Disp Refills venlafaxine ER (EFFEXOR XR) 37.5 mg 24 hr capsule 30 capsule 0 Sig: Take 1 capsule by mouth once daily. The medication was approved and escripted. Quentin Rinaldi MD Future Appointments Date Time Provider Department Center 07/03/2020 1:00 PM Joslyn [facility] 07/15/2020 2:30 PM Quentin Rinaldi [facility] 09/03/2020 9:30 AM Salvatore Isakov [facility] A Bldg documented in this encounter Plan of Treatment Not on file documented as of this encounter Visit Diagnoses Not on filedocumented in this encounter Additional Health Concerns Infection Onset Date Last Indicated Resolved Time COVID-19 Rule-Out 11/26/2020 12/01/2020 12/02/2020 1:45 PM EDT documented as of this encounter Care Teams Multigraph Operator Relationship Specialty Start Date End Date Eric Isbell Sr., PCP - General Family Medicine 03/29/19 documented as of this encounter
--- OUTSIDE RECORDS SUMMARY | 2024-11-22 12:55 | XMS_ITS | Encounter Summary ---
Author Organization [facility] [employer] Address [id number] [address] [place] [address] Care Team Providers Care Plant Facilities Technician Name Role Phone Eric Isbell Primary Care Provider [phone] Encounter Details Date Type Department Care Team (Late st Contact Info) Description 09/07/2023 Telephone [facility] [address] [place] [phone] Rosalee Tse PA [address] [place] [address] Social History Tobacco Use Types Packs/Day Years Used Date Smoking Tobacco: Never Smokeless Tobacco: Never Alcohol Use Standard Drinks/Week Comments Not Currently 0 (1 standard drink = 0.6 oz pur e alcohol) C Utilities Answer Date Recorded In the past 12 months has Health [employer], gas, oil, or water [employer] threatened to shut off services in your home? No 08/26/2023 AUDIT-C Answer Date Recorded Q1: How often do you have a drink containing alcohol? Never 08/26/2023 Q2: How many drinks containi ng alcohol do you have on a typical day when you are drinking? Patient does not drink Q3: How often do you have si x or more drinks on one occasion? Never 08/26/2023 PHQ-2 Answer Date Recorded Total Score 7 08/26/2023 PRAPARE - Transportation Answer Date Re corded In the past 12 months, has l ack of transportation kept you from medical appointments or from getting medications? No 06/2023 In the past 12 months, has l ack of transportation kept you from meetings, work, or from getting things needed for daily living? No 08/26/2023 Housing Instability Answer Date Recorde d Are you worried or concerned that in the next two months you may not have stable housing that you own, rent or stay in as a part of a household? No 08/26/2023 Childcare Answer Date Recorded Childcare Unknown 03/12/2020 Employment Answer Date Recorded Employment Unknown 03/12/2020 Hunger Screening Answer Date Recorded Within the past 12 months we worried whether our food would run out before we got money to buy more. Never True 08/26/2023 Within the past 12 months th e food we bought just didn't last and we didn't have money to get more. Never True 08/26/2023 Purpose - Life Answer Date Recorded Purpose and direction in life Unknown Comments No Sex and Gender Information Value Date Recorded Sex Assigned at Female 10/12/2020 2:44 PM EDT Legal Sex Female 3:31 PM EDT Gender Identity Male 10/12/2020 2:44 PM EDT Sexual Orientation Not on file documented as of this encounter Miscellaneous Notes * Telephone Encounter - DAWSON Segura - 09/07/2023 1:20 PM EDT Please see if Buddy can upload CT from 07/29/23 to PACS, * Telephone Encounter - Corazon Lopez LPN - 09/07/2023 1:20 PM EDT Requested that it be pushed to [facility] P[facility] documented in this encounter Plan of Treatment Upcoming Encounters Date Type Department Care Team (Late st Contact Info) Description 12/24/2024 2:45 PM EDT Office Visit [facility] [address] [place] [address] Logan Mckeon MD [address] [place] [address] documented as of this encounter Goals Goal Patient Goal Type Associated Problems Recent Progress Patient-Stated? Author <enter goal here> General Yes Jeanna Damon, CUSTOMS OFFICER Note: Evaluation of progress towards goal: home with family, self care documented as of this encounter Visit Diagnoses Not on filedocumented in this encounter Additional Health Concerns Infection Onset Date Last Indicated Resolved Time Respiratory Rule-Out 08/16/2024 08/16/2024 025 12:59 PM EST Assessment Noted Time PHQ-9 Depression Total Score: 7 08/26/19 24 8:42 AM EST documented as of this encounter Care Teams Plant Facilities Technician Relationship Specialty Start Date End Date Eric Isbell DO [address] [place] [address] PCP - General Family Medicine 08/16/24 documented as of this encounter
--- OUTSIDE RECORDS SUMMARY | 2024-11-22 12:55 | XMS_ITS | Encounter Summary ---
Author Organization [facility] [employer] Address [id number] [place] [address] Care Team Providers Care Sebd Teacher Name Role Phone Eric Isbell DO Primary Care Provider [phone] Encounter Details Date Type Department Care Team (Late st Contact Info) Description 09/26/2023 Telephone [facility] [address] [place] [address] Samantha Cruz Social History Tobacco Use Types Packs/Day Years Used Date Smoking Tobacco: Never Smokeless Tobacco: Never Alcohol Use Standard Drinks/Week Comments Not Currently 0 (1 standard drink = 0.6 oz pur e alcohol) [facility] Utilities Answer Date Recorded In the [...] got money to buy more. Never True 09/20/2023 Within the past 12 months th e food we bought just didn't last and we didn't have money to get more. Never True 09/20/2023 Purpose - Life Answer Date Recorded Purpose and direction in life Unknown Comments No Sex and Gender Information Value Date Recorded Sex Assigned at Female 10/12/2020 2:44 PM EDT Legal Sex Female 3:31 PM EDT Gender Identity Male 10/12/2020 2:44 PM EDT Sexual Orientation Not on file documented as of this encounter Miscellaneous Notes * Telephone Encounter - Samantha Cruz - 09/26/2023 4:37 PM EDT Patient is having a lot of nausea every since he got the nexplanon placed. He is currently not having any other symptoms. Patient would like recommendations. Please advise. Thank you. * Telephone Encounter - Nette Macedo MD - 09/26/2023 4:37 PM EDT CAN TRY ZOFRAN ODT IF DESIRES * Telephone Encounter - Vanesa Haile CMA - 09/26/2023 4:37 PM EDT Called and left vm for pt to call office back. VANESA HAILE CMA * Telephone Encounter - Vanesa Haile CMA - 09/26/2023 4:37 PM EDT Pt would like an Rx of Zofran sent to pharmacy please * Telephone Encounter - Nette Macedo MD - 09/26/2023 4:37 PM EDT SENT documented in this encounter Plan of Treatment Upcoming Encounters Date Type Department Care Team (Late st Contact Info) Description 12/24/2024 2:45 PM EDT Office Visit [facility] [address] [facility] [address] [place] [address] Logan Mckeon MD [address] [place] [address] documented as of this encounter Goals Goal Patient Goal Type Associated Problems Recent Progress Patient-Stated? Author <enter goal here> General Yes Jeanna Damon, DETENTION OFFICER Note: Evaluation of progress towards goal: home with family, self care documented as of this encounter Visit Diagnoses Not on filedocumented in this encounter Additional Health Concerns Infection Onset Date Last Indicated Resolved Time Respiratory Rule-Out 08/16/2024 08/16/2024 025 12:59 PM EST Assessment Noted Time PHQ-9 Depression Total Score: 7 08/26/19 24 8:42 AM EST documented as of this encounter Care Teams Sebd Teacher Relationship Specialty Start Date End Date Eric Isbell DO [address] [place] [address] PCP - General Family Medicine 08/16/24 documented as of this encounter
--- OUTSIDE RECORDS SUMMARY | 2024-11-22 12:55 | XMS_ITS | Clinical Summary ---
Author Organization [facility] Address [address] [place] [address] Phone Care Team Providers Care Log Brander Name Role Phone Eric Isbell DO Primary Care Provider [phone] Social History Tobacco Use Types Packs/Day Years Used Date Smoking Tobacco: Never Assessed Comments Unknown Sex and Gender Information Value Date Recorded Sex Assigned at Female 05/03/2023 1:28 PM EST Legal Sex Female 11:57 AM EST Gender Identity Transgender Male 05/03/2023 1:28 PM EST Sexual Orientation Not on file Plan of Treatment Health Maintenance Due Date Last Done Comments HIV Screening 2001 Lipid Panel 2001 Yearly Adult Physical 2001 MMR Vaccines (1 of 1 - Stand andrey series) 2002 Varicella Vaccines (1 of 2 - 13+ 2-dose series) 2014 HPV Vaccines (1 - 3-dose series) 2016 Meningococcal B Vaccine (1 o f 2 - Standard) 2017 Hepatitis C Screening 2019 Hepatitis B Vaccines (1 of 3 - 19+ 3-dose series) 2020 Cervical Cancer Screening 2022 HPV/Cotest 2022 Pap Smear 2022 DTaP/Tdap/Td Vaccines (1 - Tdap) 2023 COVID-19 Vaccine ( - 2023-2 5 season) 2024 Influenza Vaccine (Season Ended) 2025 Zoster Vaccines (1 of 2) 2051 HIB Vaccines Aged Out No longer eligi ble based on patient's age to complete this topic Hepatitis A Vaccines Aged Out No long er eligible based on patient's age to complete this topic IPV Vaccines Aged Out No longer eligi ble based on patient's age to complete this topic Meningococcal Vaccine Aged Out No elvis bobo eligible based on patient's age to complete this topic Pneumococcal Vaccine: Pediat rics and At-Risk Adult Patients Aged Out No longer [place] gible based on patient's age to complete this topic Rotavirus Vaccines Aged Out No longer eligible based on patient's age to complete this topic Insurance [facility] Member Subscriber Plan / Payer (Ef fective 2021-Present) Name:Karis Kovacs Relation to Subscriber:Self Name:Karis Kovacs Payer ID:[id number] (NAIC) Group ID:Not on file Type:Not on file Address: [address] [place] [id number] Care Teams Log Brander Relationship Specialty Start Date End Date Eric Isbell DO PCP - General 06/27/21
--- OUTSIDE RECORDS SUMMARY | 2024-11-22 12:55 | XMS_ITS | Encounter Summary ---
Author Organization [facility] Address [address] [place] [address] Care Team Providers Care Mechanical Maintenance Supervisor Name Role Phone House Sr., Eric BUCKLEY Primary Care Provider + Source Comments In the event this information is protected by the Federal Confidentiality of Alcohol and Drug AbusePatient Records regulations: The Federal rules restrict any use of the information to criminally investigate or prosecute any alcohol or drug abuse patient.[facility] Encounter Details Date Type Department Care Team (Late st Contact Info) Description 04/30/2024 Patient Msg Endocrinology [address] [place] [address] Kelly Stearns LSW [address] [place] [address] resources Social History Tobacco Use Types Packs/Day Years Used Date Smoking Tobacco: Never Smokeless Tobacco: Never Alcohol Use Standard Drinks/Week Comments Not Currently 0 (1 standard drink = 0.6 oz pur e alcohol) Area Deprivation Index Answer Date Jem rded National Score (1-100), lower number is lower ri sk 76 04/16/2024 State Score (1-10), lower number is lower risk 6 04/16/2024 Data from: https://www.neighborhoodatlas.medicine.[facility]/. Last address used for calculation [address] 04/16/2024 Comments No Sex and Gender Information Value [...] hearing? Answer Date of Assessment Author No 12/05/2020 6:49 PM EDT Charles Anders RN * Are you blind or do you have serious difficulty seeing, even when wearing glasses? Answer Date of Assessment Author No 12/05/2020 6:49 PM Charles Orellana RN * Do you have serious difficulty walking or climbing stairs? Answer Date of Assessment Author No 12/05/2020 6:49 PM SIENAT Charles Anders RN * Do you have difficulty dressing or bathing? Answer Date of Assessment Author No 12/05/2020 6:49 PM SIENAT Charles Anders RN * Because of a physical, mental, or emotional condition, do you have difficulty doing errands alone such as visiting a doctor's office or shopping? Answer Date of Assessment Author No 12/05/2020 6:49 PM SIENAT Charles Anders RN documented as of this encounter Mental Status * Because of a physical, mental, or emotional condition, do you have serious difficulty concentrating, remembering, or making decisions? Answer Entry Date Author No 12/05/2020 6:49 PM Charles Orellana RN documented in this encounter Plan of Treatment Not on file documented as of this encounter Visit Diagnoses Not on filedocumented in this encounter Care Teams Mechanical Maintenance Supervisor Relationship Specialty Start Date End Date Eric Isbell Sr., PCP - General Family Medicine 03/29/19 documented as of this encounter
--- OUTSIDE RECORDS SUMMARY | 2024-11-22 12:55 | XMS_ITS | Encounter Summary ---
Author Organization [facility] Address [address] [facility] [place] [address] Care Team Providers Care Dial Buffer Name Role Phone House, Eric Boland MD Primary Care Provider Lavonne Davies HIDE COOKING OPERATOR Unavailable [phone] Encounter Details Date Type Department Care Team (Late st Contact Info) Description 04/19/2023 Abstract [facility] [address] [place] [phone] Caleb Easton MD [address] [place] [phone] Social History Tobacco Use Types Packs/Day Years Used Date Smoking Tobacco: Never Smokeless Tobacco: Never Alcohol Use Standard Drinks/Week Comments Never 0 (1 standard drink = 0.6 oz pur e alcohol) Comments Unknown Sex and Gender Information Value Date Recorded Sex Assigned at Female 09/06/2024 1:31 PM EDT Legal Sex Female 2:18 PM EDT Gender Identity Transgender Male 09/06/2024 1:31 PM EDT Sexual Orientation Not on file documented as of this encounter Plan of Treatment Upcoming Encounters Date Type Department Care Team (Late Contact Info) Description 12/06/2024 1:20 PM EDT Office Visit [facility] [address] [facility] [address] [place] [address] Caleb Easton MD [address] [place] [phone] documented as of this encounter Visit Diagnoses Not on filedocumented in this encounter Care Teams Dial Buffer Relationship Specialty Start Date End Date Eric Isbell MD [address] [place] [address] PCP - General Family Medicine 02/11/23 Lavonne Davies NP [address] [facility] [address] [phone] PCP - [facility] 12/26/23 documented as of this encounter
--- OUTSIDE RECORDS SUMMARY | 2024-11-22 12:55 | XMS_ITS | Encounter Summary ---
Author Organization [facility] Address [address] [place] [address] Care Team Providers Care Event Executive Name Role Phone House Sr., Eric BUCKLEY Primary Care Provider + Source Comments In the event this information is protected by the Federal Confidentiality of Alcohol and Drug AbusePatient Records regulations: The Federal rules restrict any use of the information to criminally investigate or prosecute any alcohol or drug abuse patient.[facility] Encounter Details Date Type Department Care Team (Late st Contact Info) Description 05/07/2020 Patient Msg URO/Gynecology [address] [place], [place] [phone] Provider, [facility] Appointment Social History Tobacco Use Types Packs/Day [...] documented as of this encounter Care Teams Event Executive Relationship Specialty Start Date End Date Eric Isbell Sr., DO PCP - General Family Medicine 03/29/19 documented as of this encounter
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
--- OUTSIDE RECORDS SUMMARY | 2024-11-22 12:55 | XMS_ITS | Encounter Summary ---
Author Organization [facility] Address [address] [place] [address] Care Team Providers Care Dip Stand Loader Name Role Phone House Sr., Eric BUCKLEY Primary Care Provider + Source Comments In the event this information is protected by the Federal Confidentiality of Alcohol and Drug AbusePatient Records regulations: The Federal rules restrict any use of the information to criminally investigate or prosecute any alcohol or drug abuse patient.[facility] Encounter Details Date Type Department Care Team (Late st Contact Info) Description 08/01/2024 Patient Msg [facility] [address] [facility] [place] [address] Provider, Ccf Referral Social History Tobacco Use Types Packs/Day Years Used Date Smoking Tobacco: Never Smokeless Tobacco: Never Alcohol Use Standard Drinks/Week Comments Not Currently 0 (1 standard drink = 0.6 oz pur e alcohol) Area Deprivation Index Answer Date Jem rded National Score (1-100), lower number is lower ri 76 04/16/2024 State Score (1-10), lower number is lower risk 6 04/16/2024 Data from: https://www.neighborhoodatlas.[facility]/. Last address used for calculation spring04/16/2024 Comments No Sex and Gender Information Value [...] 6:49 PM EDT Charles Anders RN * Do you have serious difficulty walking or climbing stairs? Answer Date of Assessment Author No 12/05/2020 6:49 PM EDT Charles Anders RN * Do you have difficulty dressing or bathing? Answer Date of Assessment Author No 12/05/2020 6:49 PM EDT Charles Anders RN * Because of a [...] on filedocumented in this encounter Care Teams Dip Stand Loader Relationship Specialty Start Date End Date Eric Isbell Sr., DO PCP - General Family Medicine 03/29/19 documented as of this encounter
--- OUTSIDE RECORDS SUMMARY | 2024-11-22 12:55 | XMS_ITS | Encounter Summary ---
Author Organization [facility] Address [address] [place] [address] Care Team Providers Care Newspaper Photo Editor Name Role Phone House Sr., Eric BUCKLEY Primary Care Provider + Source Comments In the event this information is protected by the Federal Confidentiality of Alcohol and Drug AbusePatient Records regulations: The Federal rules restrict any use of the information to criminally investigate or prosecute any alcohol or drug abuse patient.[facility] Encounter Details Date Type Department Care Team (Late st Contact Info) Description 07/10/2020 Patient Msg Peds Endocrinology [address] [place] [phone] Provider, Ccf approval Social History Tobacco Use Types Packs/Day Years Used Date Smoking Tobacco: Never Smokeless Tobacco: Never Area Deprivation Index Answer Date Jem rded National Score (1-100), lower number is lower ri sk Not on file 06/02/2020 State Score (1-10), lower number is lower risk N ot on file 06/02/2020 Data from: https://www.neighborhoodatlas.[facility]/. Last address used for calculation Not on [...] or suspected to have Coronavirus / COVID-19? No / Unsure 07/03/2020 12:58 PM EST documented as of this encounter Functional Status [...] documented as of this encounter Care Teams Newspaper Photo Editor Relationship Specialty Start Date End Date Eric Isbell Sr., DO PCP - General Family Medicine 03/29/19 documented as of this encounter
--- OUTSIDE RECORDS SUMMARY | 2024-11-22 12:55 | XMS_ITS | Encounter Summary ---
Author Organization [facility] Address [address] [place], [place] [id number] Care Team Providers Care Printing Specialist Name Role Phone House Sr., Eric BUCKLEY Primary Care Provider + Source Comments In the event this information is protected by the Federal Confidentiality of Alcohol and Drug AbusePatient Records regulations: The Federal rules restrict any use of the information to criminally investigate or prosecute any alcohol or drug abuse patient.[facility] Encounter Details Date Type Department Care Team (Late st Contact Info) Description 12/13/2020 Patient Msg Internal Medicine [place] [address] [place] [address] Provider, Ccf Appointment Social History Tobacco Use [...] on file 06/02/2020 Data from: https://www.neighborhoodatlas.medicine.[facility].edu/. Last address used for calculation Not on file 06/02/2020 Comments No Sex and Gender Information Value [...] have Coronavirus / COVID-19? No / Unsure 12/10/2020 1:52 PM EDT documented as of this encounter [...] of Assessment Author No 12/05/2020 6:49 PM EDCharles Shah RN * Do you have difficulty dressing or bathing? Answer Date of Assessment Author No 12/05/2020 6:49 PM EDT Charles Anders RN * Because of a physical, mental, or emotional condition, do you have difficulty doing errands alone such as visiting a doctor's office or shopping? Answer Date of Assessment Author No 12/05/2020 6:49 PM EDT Charles Anders RN documented as of this encounter Mental Status * Because of a physical, mental, or emotional condition, do you have serious difficulty concentrating, remembering, or making decisions? Answer Entry Date Author No 12/05/2020 6:49 PM EDT Charles Anders RN documented in this encounter Plan of Treatment Not on file documented as of this encounter Visit Diagnoses Not on filedocumented in this encounter Care Teams Printing Specialist Relationship Specialty Start Date End Date Eric Isbell Sr., DO PCP - General Family Medicine 03/29/19 documented as of this encounter
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
--- OUTSIDE RECORDS SUMMARY | 2024-11-22 12:55 | XMS_ITS | Encounter Summary ---
Author Organization [facility] Address [address] [place] [address] Care Team Providers Care Construction Safety Manager Name Role Phone Eric Isbell MD Primary Care Provider [phone] Encounter Details Date Type Department Care Team (Latest Contact Info) Description 11/21/2024 Travel Social History Tobacco Use Types Packs/Day Years Used Date Smoking Tobacco: Never Smokeless Tobacco: Never Alcohol Use Standard Drinks/Week Comments Never 0 (1 standard drink = 0.6 oz pur e alcohol) [place] Safety & Environment Answer Date Rec orded [...] AM EST Sexual Orientation Not on file documented as of this encounter Plan of Treatment Upcoming Encounters Date Type Department Care Team (Latest Contact Info) Description 11/28/2024 10:00 AM EDT Hospital Encounter [facility] [address] [place] [address] Aaron Harding MD [address] [place] [address] SVT (supraventricular tachycardia) 11/28/2024 12:00 PM EDT - 11/28/2024 2:00 PM EDT Surgery [facility] [address] [place] [address] Aaron Harding MD [address] [place] [address] Electrophysiology procedure [72932 (CPT )] documented as of this encounter Visit Diagnoses Not on filedocumented in this encounter Care Teams Construction Safety Manager Relationship Specialty Start Date End Date Eric Isbell MD [address] [place] [address] PCP - General 02/01/23 documented as of this encounter
--- OUTSIDE RECORDS SUMMARY | 2024-11-22 12:55 | XMS_ITS | Encounter Summary ---
Author Organization [facility] Address [address] [place] [address] Care Team Providers Care Alarm Mechanism Adjuster Name Role Phone House Sr., Eric BUCKLEY Primary Care Provider + Source Comments In the event this information is protected by the Federal Confidentiality of Alcohol and Drug AbusePatient Records regulations: The Federal rules restrict any use of the information to criminally investigate or prosecute any alcohol or drug abuse patient.[facility] Encounter Details Date Type Department Care Team (Late st Contact Info) Description 09/24/2020 Get Medical Advice Pediatrics [address] [place] [address] Joslyn Bland MD [address] [place] [address] RE: Medication Question (Not Renewal) Social History Tobacco Use Types Packs/Day Years Used Date Smoking Tobacco: Never Smokeless Tobacco: Never Area Deprivation Index Answer Date Jem rded National Score (1-100), lower number is lower ri sk Not on file 06/02/2020 State Score (1-10), lower number is lower risk N ot on file 06/02/2020 Data from: https://www.neighborhoodatlas.medicine.[facility]/. Last address used for calculation [...] documented as of this encounter Care Teams Alarm Mechanism Adjuster Relationship Specialty Start Date End Date Eric Isbell Sr., DO PCP - General Family Medicine 03/29/19 documented as of this encounter
--- OUTSIDE RECORDS SUMMARY | 2024-11-22 12:55 | XMS_ITS | Encounter Summary ---
Author Organization [facility] Address [address] [place], [place] [id number] Care Team Providers Care Hazard Mitigation Officer Name Role Phone House Sr., Eric BUCKLEY Primary Care Provider + Source Comments In the event this information is protected by the Federal Confidentiality of Alcohol and Drug AbusePatient Records regulations: The Federal rules restrict any use of the information to criminally investigate or prosecute any alcohol or drug abuse patient.[facility] Encounter Details Date Type Department Care Team (Late st Contact Info) Description 10/08/2020 Patient Msg Plastic Surgery [address] [address] Provider, [facility] Cardiac Clearance Social History Tobacco Use Types Packs/Day Years Used Date Smoking Tobacco: Never Smokeless Tobacco: Never Area Deprivation Index Answer Date Jem rded National Score (1-100), lower number is lower ri sk Not on file 06/02/2020 State Score (1-10), lower number is lower risk N ot on file 06/02/2020 Data from: https://www.neighborhoodatlas.[facility]/. Last address used for calculation [...] Author No 12/11/2019 12:44 PM EDT Cielo Hruley RN * Are you blind or do [...] documented as of this encounter Care Teams Hazard Mitigation Officer Relationship Specialty Start Date End Date Eric Isbell Sr., DO PCP - General Family Medicine 03/29/19 documented as of this encounter
--- OUTSIDE RECORDS SUMMARY | 2024-11-22 12:55 | XMS_ITS | Encounter Summary ---
Author Organization [employer] Address [id number] [address] [place] [address] Care Team Providers Care Patient Access Specialist Name Role Phone Eric Isbell DO Primary Care Provider [phone] Encounter Details Date Type Department Care Team (Latest Contact Info) Description 11/13/2024 Travel Social History Tobacco Use Types Packs/Day Years Used Date Smoking Tobacco: Never Smokeless Tobacco: Never Alcohol Use Standard Drinks/Week Comments Not Currently 0 (1 standard drink = 0.6 oz pur e alcohol) [facility] Utilities Answer Date Recorded In the past 12 months has [employer], gas, oil, or water company threatened to [...] Office Visit [facility] [address] [facility] [address] [id number] Logan Mckeon MD [address] [place] [address] documented as of this encounter Goals Goal Patient Goal Type Associated Problems Recent Progress Patient-Stated? Author <enter goal here> General Yes Jeanna Damon, PRINTING TABLE HAND Note: Evaluation of progress towards goal: home [...] documented as of this encounter Care Teams Patient Access Specialist Relationship Specialty Start Date End Date Eric Isbell DO [address] [place] [address] PCP - General Family Medicine 08/16/24 documented as of this encounter
--- OUTSIDE RECORDS SUMMARY | 2024-11-22 12:55 | XMS_ITS | Encounter Summary ---
Author Organization [facility] Address [address] [place] [address] Care Team Providers Care Drywall Hanger Framer Name Role Phone House Sr., Eric BUCKLEY Primary Care Provider + Source Comments In the event this information is protected by the Federal Confidentiality of Alcohol and Drug AbusePatient Records regulations: The Federal rules restrict any use of the information to criminally investigate or prosecute any alcohol or drug abuse patient.[facility] Encounter Details Date Type Department Care Team (Late st Contact Info) Description 03/14/2020 Patient Msg URO/Gynecology [address] [place], [place] [phone] Provider, [facility] chest surgery Social History Tobacco Use Types Packs/Day Years [...] have Coronavirus / COVID-19? No / Unsure 03/13/2020 1:57 PM EDT documented as of this encounter [...] documented as of this encounter Care Teams Drywall Hanger Framer Relationship Specialty Start Date End Date Eric Isbell Sr., DO PCP - General Family Medicine 03/29/19 documented as of this encounter
--- OUTSIDE RECORDS SUMMARY | 2024-11-22 12:55 | XMS_ITS | Clinical Summary ---
Author Organization [facility] Address [address] [place] [address] Care Team Providers Care Molecular Pathologist Name Role Phone Eric Isbell MD Primary Care Provider [phone] Allergies Active Allergy Reactions Criticality Noted Date [...] mouth at bedtime. 08/09/2024 Active HYDROcodone-acetamin ophen ([place]) 5-325 mg tablet Take 1 tablet by [...] GI symptoms with primary and with his [facility]. 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 [...] benefit from evaluation at neuro[place]ogenic [place] Pre-op testing 10/10/2023 ADD (attention deficit disorder) [...] 08/23/23 with 1 day hospitalization at [facility] Assessment & Plan (11/16/2023 2:05 PM EDT): Syncopal episode 08/23/23 with 1 day hospitalization at [facility] History of palpitations in adulthood 06/17/2023 Intractable [...] - Nutrition consult placed - F/U with Supervisor Plate Pasting/PCP as outpatient Last Assessment & Plan: Assessment: Noted on admission PLAN: - Nutrition consult placed - F/U with Supervisor Plate Pasting/PCP as outpatient Low TSH level 12/06/2019 06/17/2023 [...] - Nutrition consult placed - F/U with Supervisor Plate Pasting/PCP as outpatient Last Assessment & Plan: Assessment: Endorses 15lb weight loss over the period of a few weeks PLAN: - Nutrition consult placed - F/U with Supervisor Plate Pasting/PCP as outpatient Abrasion of face 01/25/2019 06/17/2023 [...] difficulties 08/31/2018 06/17/2023 Frequent headaches 07/20/2017 06/17/2023 Encounters Date Type Department Care Team Description 11/21/2024 Travel 11/21/2024 Orders Only [facility] [place] [facility] [address] [place] [address] Leena Gerber RN Palpitations (Primary Dx) 10/30/2024 10:25 PM EDT Ancillary Procedure [facility] [address] [place] [address] Awareness of heartbeats 10/27/2024 Orders Only [facility] [address] [place] [address] Josh Pang MD 10/16/2024 10:00 AM EDT Office Visit [facility] [address] [place] [facility] [place] [address] Aaron Harding MD SVT (supraventricular tachycardia) (Primary Dx) 10/16/2024 Orders Only [facility] [address] [place] [facility] [place] [address] Randa Amador MA SVT (supraventricular tachycardia) 09/27/2024 5:05 PM EDT Ancillary Procedure [facility] [address] [facility] [place] [address] Awareness of heartbeats 08/28/2024 9:05 PM EST Ancillary Procedure [facility] [place] [facility] [address] [facility] [place] [address] Awareness of heartbeats from Last 3 Months Family History Relation Name Status Comments Brother Alive Father Alive Mother Alive Sister Alive Social History Tobacco Use Types Packs/Day Years Used Date Smoking Tobacco: Never Smokeless Tobacco: Never Tobacco Cessation:Counseling Given: Not Answered Alcohol Use Standard Drinks/Week Comments Never 0 (1 standard drink = 0.6 oz pur e alcohol) [place] Safety & Environment Answer Date Rec orded [...] Description 11/28/2024 10:00 AM EDT Hospital Encounter [facility] [address] [place] [address] Aaron Harding MD [address] [place] [address] SVT (supraventricular tachycardia) 11/28/2024 12:00 PM EDT - 11/28/2024 2:00 PM EDT Surgery [facility] [address] [place] [address] Aaron Harding MD [address] [place] [address] Electrophysiology procedure [98201 (CPT )] Health Maintenance Due Date Last Done Comments Diabetes: Hemoglobin A1C 2001 Diabetes: Retinopathy Screening 2011 Depression Screening 2013 Varicella Vaccines (1 of 2 - 13+ 2-dose series) 2014 HPV Vaccines (1 - 3-dose series) 2016 Meningococcal B Vaccine (1 o f 2 - Standard) 2017 Pap Smear 2022 Adult Tetanus 2023 Pneumococcal Vaccine: Pediat rics (0 to 5 Years) and At-Risk Patients (6 to 64 Years) (2 of 2 - PCV) 11/25/2023 11/24/2022 COVID-19 Vaccine (1 - 2023-2 5 season) 2024 Influenza Vaccine (Season Ended) 2025 Diabetes: Urine Protein Screening 05/11/2025 024 Zoster Vaccines (1 of 2) 2051 HIB [...] on patient's age to complete this topic Medical Devices Implanted Type Area Senior Actuarial Analyst Device Identifier Shelf Expiration Date Model / Serial / Lot Monitor,Carola victoriaEric,Dxii+[facility] - [id number] - [id number] Implanted:Qty: 1 on 08/03/2023 by Aaron [facility] MD at [facility] Implantable Loop Recorder [employer] 12/29/2024 [id number] / Procedures Procedure Name Priority Date/Time Associated [...] PROCEDURES from Last 3 Months Care Teams Molecular Pathologist Relationship Specialty Start Date End Date Eric Isbell MD [address] [place] [address] PCP - General 02/01/23
--- OUTSIDE RECORDS SUMMARY | 2024-11-22 12:55 | XMS_ITS | Encounter Summary ---
Author Organization [facility] Address [address] [place] [address] Care Team Providers Care Tool Drawing Checker Name Role Phone House Sr., Eric BUCKLEY Primary Care Provider + Source Comments In the event this information is protected by the Federal Confidentiality of Alcohol and Drug AbusePatient Records regulations: The Federal rules restrict any use of the information to criminally investigate or prosecute any alcohol or drug abuse patient.[facility] Encounter Details Date Type Department Care Team (Late st Contact Info) Description 04/30/2024 Patient Msg Endocrinology [address] [place], [place] [id number] Provider, [facility] Endocrine Psychology Welcome Group Scheduling Social History Tobacco Use Types Packs/Day Years Used Date Smoking Tobacco: Never Smokeless Tobacco: Never Alcohol Use Standard Drinks/Week Comments Not Currently 0 (1 standard drink = 0.6 oz pur e alcohol) Area Deprivation Index Answer Date Jem rded National Score (1-100), lower number is lower ri 76 04/16/2024 State Score (1-10), lower number is lower risk 6 04/16/2024 Data from: https://www.neighborhoodatlas.[facility].edu/. Last address used for calculation spring04/16/2024 Comments [...] on filedocumented in this encounter Care Teams Tool Drawing Checker Relationship Specialty Start Date End Date Eric Isbell Sr., DO PCP - General Family Medicine 03/29/19 documented as of this encounter
--- OUTSIDE RECORDS SUMMARY | 2024-11-22 12:55 | XMS_ITS | Encounter Summary ---
Author Organization [facility] Address [address] [place] [address] Care Team Providers Care Fire Protection Specialist Name Role Phone House Sr., Eric BUCKLEY Primary Care Provider + Source Comments In the event this information is protected by the Federal Confidentiality of Alcohol and Drug AbusePatient Records regulations: The Federal rules restrict any use of the information to criminally investigate or prosecute any alcohol or drug abuse patient.[facility] Encounter Details Date Type Department Care Team (Late st Contact Info) Description 12/13/2020 Patient Msg Pediatrics [address] [place] [address] Joslyn Bland MD [address] [place] [address] Request an Appointment Social History Tobacco Use Types Packs/Day [...] N ot on file 06/02/2020 Data from: https://www.neighborhoodatlas.medicine.[facility].edu/. Last address used for calculation Not on [...] 12/05/2020 6:49 PM Charles Orellana RN * Are you blind or do you have serious difficulty seeing, even when wearing glasses? Answer Date of Assessment Author No 12/05/2020 6:49 PM Charles Orellana RN * Do you have serious difficulty walking or climbing stairs? Answer Date of Assessment Author No 12/05/2020 6:49 PM Charles Orellana RN * Do you have difficulty dressing or bathing? Answer Date of Assessment Author No 12/05/2020 6:49 PM Charles Orellana RN * Because of a physical, mental, or emotional condition, do you have difficulty doing errands alone such as visiting a doctor's office or shopping? Answer Date of Assessment Author No 12/05/2020 6:49 PM Charles Orellana RN documented as of this encounter Mental Status * Because of a physical, mental, or emotional condition, do you have serious difficulty concentrating, remembering, or making decisions? Answer Entry Date Author No 12/05/2020 6:49 PM Charles Orellana RN documented in this encounter Plan of Treatment Not on file documented as of this encounter Visit Diagnoses Not on filedocumented in this encounter Care Teams Fire Protection Specialist Relationship Specialty Start Date End Date Eric Isbell Sr., PCP - General Family Medicine 03/29/19 documented as of this encounter
--- OUTSIDE RECORDS SUMMARY | 2024-11-22 12:55 | XMS_ITS | Encounter Summary ---
Author Organization [facility] Address [address] [place] [address] Care Team Providers Care Buzzsaw Operator Name Role Phone House Sr., Eric BUCKLEY Primary Care Provider + Source Comments In the event this information is protected by the Federal Confidentiality of Alcohol and Drug AbusePatient Records regulations: The Federal rules restrict any use of the information to criminally investigate or prosecute any alcohol or drug abuse patient.[facility] Encounter Details Date Type Department Care Team (Late st Contact Info) Description 07/18/2024 Patient Msg Diabetic Education [facility] [address] [place] [id number] Provider, [facility] Endo Dietitian Social History Tobacco Use Types Packs/Day Years Used Date Smoking Tobacco: Never Smokeless Tobacco: Never Alcohol Use Standard Drinks/Week Comments Not Currently 0 (1 standard drink = 0.6 oz pur e alcohol) Area Deprivation Index Answer Date Jem rded National Score (1-100), lower number is lower ri 76 04/16/2024 State Score (1-10), lower number is lower risk 6 04/16/2024 Data from: https://www.neighborhoodatlas.[facility]/. Last address used for calculation spring04/16/2024 Comments [...] on filedocumented in this encounter Care Teams Buzzsaw Operator Relationship Specialty Start Date End Date Eric Isbell Sr., DO PCP - General Family Medicine 03/29/19 documented as of this encounter
--- OUTSIDE RECORDS SUMMARY | 2024-11-22 12:55 | XMS_ITS | Encounter Summary ---
Author Organization [facility] Address [facility] [place] [address] Care Team Providers Care Self Defense Instructor Name Role Phone House Sr., Eric BUCKLEY Primary Care Provider + Source Comments In the event this information is protected by the Federal Confidentiality of Alcohol and Drug AbusePatient Records regulations: The Federal rules restrict any use of the information to criminally investigate or prosecute any alcohol or drug abuse patient.[facility] Encounter Details Date Type Department Care Team (Late st Contact Info) Description 12/04/2020 Surgical Case HOSP MAIN G090 [address] [place] [address] Salvatore Morin MD [address] [place] [address] Social History Tobacco Use Types Packs/Day Years [...] N ot on file 06/02/2020 Data from: https://www.neighborhoodatlas.medicine.[facility]/. Last address used for calculation Not on [...] have Coronavirus / COVID-19? No / Unsure 12/04/2020 12:37 PM EDT documented as of this encounter [...] on filedocumented in this encounter Care Teams Self Defense Instructor Relationship Specialty Start Date End Date Eric Isbell Sr., PCP - General Family Medicine 03/29/19 documented as of this encounter
--- OUTSIDE RECORDS SUMMARY | 2024-11-22 12:55 | XMS_ITS | Encounter Summary ---
Author Organization [facility] Address [address] [place] [address] Care Team Providers Care Finishing Room Operator Name Role Phone Eric Isbell MD Primary Care Provider [phone] Encounter Details Date Type Department Care Team (Late st Contact Info) Description 11/21/2024 Orders Only [facility] [address] [place] [address] Leena Gerber RN Palpitations (Primary Dx) Social History Tobacco Use Types Packs/Day Years Used Date Smoking Tobacco: Never Smokeless Tobacco: Never Alcohol Use Standard Drinks/Week Comments Never 0 (1 standard drink = 0.6 oz pur e alcohol) [place] Safety & Environment Answer Date Rec orded [...] Description 11/28/2024 10:00 AM EDT Hospital Encounter [facility] [address] [place] [address] Aaron Harding MD [address] [place] [address] SVT (supraventricular tachycardia) 11/28/2024 12:00 PM EDT - 11/28/2024 2:00 PM EDT Surgery [facility] [address] [place] [address] Aaron Harding MD [address] [place] [address] Electrophysiology procedure [88417 (CPT )] Scheduled Orders Name Type Priority Associated Diagnoses Orde r Schedule CBC Lab Routine Palpitations Expected: 11/21/2024 (Approximate), Expires: 11/21/2025 Basic metabolic panel Lab Routine Palpitations Expected: 11/21/2024 (Approximate), Expires: 11/21/2025 documented as of this encounter Visit Diagnoses Diagnosis SVT (supraventricular tachycardia)- Primary Other specified cardiac dysrhythmias Palpitations- Primary SVT (supraventricular tachycardia) Other specified cardiac dysrhythmias documented in this encounter Care Teams Finishing Room Operator Relationship Specialty Start Date End Date Eric Isbell MD [address] [place] [address] PCP - General 02/01/23 documented as of this encounter
--- OUTSIDE RECORDS SUMMARY | 2024-11-22 12:55 | XMS_ITS | Encounter Summary ---
Author Organization [facility] Address [address] [place] [address] Care Team Providers Care Metal Machine Setter Name Role Phone House Sr., Eric BUCKLEY Primary Care Provider + Source Comments In the event this information is protected by the Federal Confidentiality of Alcohol and Drug AbusePatient Records regulations: The Federal rules restrict any use of the information to criminally investigate or prosecute any alcohol or drug abuse patient.[facility] Encounter Details Date Type Department Care Team (Late st Contact Info) Description 06/02/2020 Get Medical Advice Pediatrics [address] [place] [address] Domenica Rivas MD [address] [place] [address] RE: Non-Urgent Medical Question Social History Tobacco Use Types Packs/Day Years Used Date Smoking Tobacco: Never Smokeless Tobacco: Never Area Deprivation Index Answer Date Jem rded National Score (1-100), lower number is lower ri sk Not on file 06/02/2020 State Score (1-10), lower number is lower risk N ot on file 06/02/2020 Data from: https://www.neighborhoodatlas.medicine.[facility]/. Last address used for calculation Not on [...] encounter Miscellaneous Notes * Telephone Encounter - Oumou Calle (Rn), RN - 06/02/2020 5:25 PM EST Melinda patient documented in this encounter Plan of Treatment Not on file documented as of this encounter Visit Diagnoses Not on filedocumented in this encounter Additional Health Concerns Infection Onset Date Last Indicated Resolved Time COVID-19 Rule-Out 11/26/2020 12/01/2020 12/02/2020 1:45 PM EDT documented as of this encounter Care Teams Metal Machine Setter Relationship Specialty Start Date End Date Eric Isbell Sr., PCP - General Family Medicine 03/29/19 documented as of this encounter
--- OUTSIDE RECORDS SUMMARY | 2024-11-22 12:55 | XMS_ITS | Encounter Summary ---
Author Organization [facility] Address [address] [place] [address] Care Team Providers Care Infection Control Preventionist Name Role Phone Eric Isbell MD Primary Care Provider [phone] Encounter Details Date Type Department Care Team (Late st Contact Info) Description 10/27/2024 Orders Only [facility] [address] [place] [address] Josh Pang MD [address] [place] [address] Social History Tobacco Use Types Packs/Day Years Used Date Smoking Tobacco: Never Smokeless Tobacco: Never Alcohol Use Standard Drinks/Week Comments Never 0 (1 standard drink = 0.6 oz pur e alcohol) [place] Safety & Environment Answer Date Rec orded [...] Description 11/28/2024 10:00 AM EDT Hospital Encounter [facility] [address] [place] [address] Aaron Harding MD [address] [place] [address] SVT (supraventricular tachycardia) 11/28/2024 12:00 PM EDT - 11/28/2024 2:00 PM EDT Surgery [facility] [address] [place] [address] Aaron Harding MD [address] [facility] [place] [address] Electrophysiology procedure [[id number] (CPT )] documented as of this encounter Procedures Procedure Name Priority Date/Time Associated Diagnosis Comments CARDIAC DEVICE CHECK - REMOTE - LOOP RECORDER (ILR) Routine 10/27/2024 12:00 AM EDT documented in this encounter Results * Cardiac device check - Remote loop recorder (ILR) (10/27/2024 12:00 AM EDT) Anatomical Region Laterality Modality Other 10/27/2024 Samer Justin Pang MD CV IMPLANTABLE CARDI AC DEVICE PROCEDURES documented in this encounter Visit Diagnoses Not on filedocumented in this encounter Care Teams Infection Control Preventionist Relationship Specialty Start Date End Date Eric Isbell MD [address] [place] [address] PCP - General 02/01/23 documented as of this encounter
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
--- OUTSIDE RECORDS SUMMARY | 2024-11-22 12:56 | XMS_ITS | Encounter Summary ---
Author Organization [employer] Address [id number] [address] [place] [address] Care Team Providers Care Waste Collector Name Role Phone Eric Isbell DO Primary Care Provider [phone] Reason for Visit * Reason Onset Date Comments reschd appt 04/27/2022 Encounter Details Date Type Department Care Team ([facility] Contact Info) Description 04/27/2022 [facility] [address] [place] [address] Chika Washington reschd appt Social History Tobacco Use Types Packs/Day Years [...] encounter Miscellaneous Notes * Telephone Encounter - Chika Washington - 04/27/2022 2:54 PM EDT Patient's appointment needs to be rescheduled at this time due to provider out of clinic. Called and left message Date: 04/30 Provider: Dr. Gracia Rescheduling Instructions: next available documented in this encounter Plan of Treatment Upcoming Encounters Date Type Department Care Team (Late st Contact Info) Description 12/24/2024 2:45 PM EDT Office Visit [facility] [address] [place] [address] Logan Mckeon MD [address] [place] [address] documented as of this encounter Visit Diagnoses Not on filedocumented in this encounter Additional Health Concerns Infection Onset Date Last Indicated Resolved Time Respiratory Rule-Out 08/16/2024 08/16/2024 025 12:59 PM EST documented as of this encounter Care Teams Waste Collector Relationship Specialty Start Date End Date Eric Isebll DO [address] [place] [address] PCP - General Family Medicine 08/16/24 documented as of this encounter
--- OUTSIDE RECORDS SUMMARY | 2024-11-22 12:56 | XMS_ITS | Clinical Summary ---
Author Organization [facility] Address [address] [place] [address] Care Team Providers Care Managing Principal Name Role Phone Sukhi Sams DO, Charles P Primary Care Provider + Allergies Active Allergy Reactions Criticality Noted Date Comments Codeine Hives,Itching Medium 07/17/2017 Medications Needle, Disp, 18 G (BD DISPOSABLE NEEDLES) 18 gauge x 1 ndleIndications:Ge nder dysphoria in adolescent and adult For use to withdraw testosterone Q2wks 10 Each 5 07/03/19 21 Active BD LUER-MARYLOU SYRINGEIndications :Gender dysphoria in adolescent and adult 1 mL syringe for use with testosterone injection SQ Q2wks 10 Each 5 07/03/19 21 Active Needle, Disp, 23 G 23 gauge x 3/4 ndleIndications:Ge nder dysphoria in adolescent and adult For use with testosterone administration SQ Q2wks 10 Each 5 07/03/19 21 Active metoprolol succinate ER (TOPROL XL) 100 mg Take by mouth. Active lamoTRIgine (LAMICTAL) 25 mg tablet Take 100 mg by mouth twice daily. Active LORazepam (ATIVAN) 1 mg tablet Take 1 mg by mouth q 12 HR. 09/17/19 21 Active phenytoin ER (DILANTIN) 100 mg ER capsule Take 300 mg by mouth once daily. 11/04/19 21 Active erenumab-aooe 140 mg/mL subcutaneous auto-injector (AIMOVIG) Inject 140 mg subcutaneously once every month. 01/28/20 24 Active atomoxetine (STRATTERA) 40 mg capsule Take 40 mg by mouth once daily. 01/28/20 24 Active brivaracetam (BRIVIACT) 100 mg tablet Take 100 mg by mouth once daily. 08/23/19 24 Active Ciclopirox 1 % sham lather on wet hair, leave on for 5 (FIVE) minutes, then rinse 2-3 times a week FOR 30 DAYS Active Clindamycin Phosphate (CLEOCIN T) 1 % lotion Apply to face and back once daily/ 30 day supply 10/11/19 24 Active cloBAZam (ONFI) 10 mg tab tablet Take 10 mg by mouth once daily. 04/06/20 23 Active flecainide (TAMBOCOR) 100 mg tablet Take 1 tablet by mouth every 12 hours. 03/13/20 24 Active keTORolac (TORADOL) 10 mg tablet Take by mouth every 6 hours as needed. 11/14/19 22 Active metoprolol tartrate, short acting, (LOPRESSOR) 25 mg tablet TAKE 1/2 (ONE-HALF) OF A TABLET BY MOUTH TWICE DAILY DIRECTED for 30 days Active midazolam (NAYZILAM) 5 mg/spray (0.1 mL) nasal spray Use 5 mg in the nose at bedtime as needed. 02/07/20 23 Active ondansetron orally disintegrating (ZOFRAN ODT) 4 mg disintegrating tablet Take 4 mg by mouth three times a day as needed. 12/07/19 24 Active senna-docusate (SENOKOT-S) 8.6-50 mg per tablet Take 2 tablets by mouth once daily. 12/07/19 24 Active sertraline (ZOLOFT) 25 mg tablet Take 25 mg by mouth. Active sertraline (ZOLOFT) 50 mg tablet Take 50 mg by mouth. 12/07/19 24 Active Sulfacetamide Sodium, Acne, 10 % susp Apply thin layer to face once daily, 30 day supply. 10/11/19 24 Active tiZANidine (ZANAFLEX) 2 mg tablet Take 2 mg by mouth three times a day as needed. 09/20/19 24 Active traZODone (DESYREL) 100 mg tablet Take 100 mg by mouth. 01/28/20 24 Active ubrogepant (UBRELVY) 100 mg tablet Take 1 tablet by mouth. Active Active Problems Problem Noted Date Diagnosed Date Type 2 diabetes mellitus without retinopathy Vision changes 10/08/2024 Myopia, bilateral 10/08/2024 Mild protein-calorie malnutrition 12/07/2019 Assessment & Plan (12/11/2019 8:12 AM EDT): Assessment: Noted on admission PLAN: - Nutrition consult placed - F/U with Softlines Supervisor/PCP as outpatient Assessment & Plan (12/10/2019 8:23 AM EDT): Assessment: Noted on admission PLAN: -Nutrition consult Low TSH level 12/06/2019 Assessment & Plan (12/11/2019 8:11 AM EDT): Assessment: TSH on admission 0.5. Follows with pediatric endocrinology for testosterone injections. PLAN: - Follow up with endocrine outpatient Assessment & Plan (12/10/2019 8:21 AM EDT): Assessment: TSH on admission 0.5. Follows with pediatric endocrinology for testosterone injections. PLAN: - Follow up with endocrine outpatient Assessment & Plan (12/06/2019 9:22 AM EDT): Assessment: TSH on admission 0.5. Follows with pediatric endocrinology for testosterone injections. PLAN: - Follow up with endocrine outpatient Abnormal weight loss 12/05/2019 Assessment & Plan (12/11/2019 8:11 AM EDT): Assessment: Endorses 15lb weight loss over the period of a few weeks PLAN: - Nutrition consult placed - F/U with [employer] Supervisor/PCP as outpatient Assessment & Plan (12/10/2019 8:21 AM EDT): Assessment: Endorses 15lb weight loss over the period of a few weeks PLAN: - Nutrition consult placed Assessment & Plan (12/06/2019 9:20 AM EDT): Assessment: Endorses 15lb weight loss over the period of a few weeks PLAN: - Nutrition consult placed Assessment & Plan (12/05/2019 4:44 PM EDT): Assessment: Endorses 15lb weight loss over the period of a few weeks PLAN: - Nutrition consult placed PTSD (post-traumatic stress disorder) 10/11/2018 Overview (05/06/2020): Start cymbalta 30mg daily- can increase to 60mg in 2-4 weeks if needed Continue propranolol 10-20mg three times daily Continue counseling Social anxiety disorder 09/04/2018 Overview (08/16/2019): See PTSD for plan 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 Follows with pediatric endocrinology for testosterone injections PLAN: - Takes testosterone injections every two weeks. - Has injections at home. - F/u with Endocrine Assessment & Plan (12/10/2019 8:18 AM EDT): Assessment: Noted on admission, prefers he/him pronouns. Follows with pediatric endocrinology for testosterone injections PLAN: - Takes testosterone injections every two weeks. Was due on 6 but did not take it and did not bring it with him. - Contact endo for recommendations for injection schedule at discharge Assessment & Plan (12/05/2019 3:11 PM EDT): Assessment: Noted on admission, prefers he/him pronouns. Follows with pediatric endocrinology for testosterone injections PLAN: - Takes testosterone injections every two weeks. Was due on 67 but did not take it and did not bring it with him. - Contact endo for recommendations for injection schedule at discharge Sleep difficulties 08/31/2018 Frequent headaches 07/20/2017 Anxiety disorder 07/15/2017 Assessment & Plan (11/25/2020 12:45 PM EDT): Assessment: Rx'd Effexor, but does not take it does not work . Assessment & Plan (12/11/2019 12:26 PM EDT): Assessment: History noted on admission. Prescribed zoloft 100mg and propanolol daily but endorses not taking PLAN: - Psych as needed Assessment & Plan (12/10/2019 8:18 AM EDT): Assessment: History noted on admission. Prescribed zoloft 100mg and propanolol daily but endorses not taking PLAN: - Psych as needed Assessment & Plan (12/05/2019 3:09 PM EDT): Assessment: History noted on admission. Prescribed zoloft 100mg and propanolol daily but endorses not taking PLAN: - Psych as needed Gender dysphoria Psychogenic nonepileptic seizure Overview (02/21/2020): Continue counseling Assessment & Plan (11/25/2020 12:48 PM EDT): Assessment: first seizure 4 years ago. He describes seizure often prior to starting meds, he states would have every other day. Now on medications, less frequent ~ every 2 weeks. Has appointment today with neurologist, Dr Marr, he will call after his appointment with any changes (requested optimization) Assessment & Plan (12/11/2019 8:08 AM EDT): Assessment: Karis Kovacs is a 19 year old adult who was admitted to the [facility] on 12/05/2019 until 12/11/2019 for diagnosis. [...] have 2 typical events without EEG change. PLAN: -Psychology consult with Dr. Hancock -Discharge home today - CBT with previously established emergency medical technician/driver or Dr. Hancock as outpatient Panic attacks Overview (02/21/2020): See PTSD for plan Assessment & Plan (11/25/2020 12:45 PM EDT): Assessment: he admits to have them frequently, like every other day. Resolved Problems Problem Noted Date Diagnosed Date Resolved Date Acute post-traumatic headach e, not intractable 12/05/2019 12/11/2019 Assessment & Plan (12/10/2019 8:21 AM EDT): Assessment: Present on admission following seizure related fall yesterday with head strike. Endorses 6/10 throbbing headache on admission. No photo/phonophobia, change in vision, nausea or vomiting. Physical exam unremarkable. CT head without contrast + bone sequence completed on 12/04/2019 WNL PLAN: - Treat symptomatically. Assessment & Plan (12/05/2019 4:42 PM EDT): Assessment: Present on admission following seizure related fall yesterday with head strike. Endorses 6/10 throbbing headache on admission. No photo/phonophobia, change in vision, nausea or vomiting. Physical exam unremarkable PLAN: - CT head without contrast + bone sequence Encounters Date Type Department Care Team Description 10/08/2024 1:00 PM EDT Office Visit [facility] [address] [place], [place] [id number] Bassem Gongora, OD Type 2 diabetes mellitus without retinopathy (HCC) (Primary Dx); Vision changes; Myopia, bilateral from Last 3 Months Family History Medical History Relation Comments No Known Problems Brother 1 No Known Problems Brother 2 overweight Father Heart Maternal Grandfather Heart Maternal Grandmother valve repla cement No Known Problems Mother Diabetes Paternal Grandfather Heart Paternal Grandfather Hypertension Paternal Grandfather Lipids Paternal Grandfather Stroke Paternal Grandfather smokes Paternal Grandfather No Known Problems Paternal Grandmother No Known Problems Sister 1 No Known Problems Sister 2 Relation Status Comments Brother 1 Brother 2 Father Maternal Grandfather Maternal Grandmother Mother Paternal Grandfather Paternal Grandmother Sister 1 Sister 2 Social History Tobacco Use Types Packs/Day Years [...] is lower risk 6 04/16/2024 Data from: https://www.neighborhoodatlas.medicine.[facility]/. Last address used for calculation [address] 04/16/2024 Comments No Sex and Gender Information Value Date Recorded Sex Assigned at Female 09/04/2018 2:58 PM EDT Legal Sex Female 10:19 AM EST Gender Identity Transgender Male 09/04/2018 2:58 PM EDT Sexual Orientation Lesbian or Corral 09/04/2018 2: 58 PM EDT Last Filed Vital Signs Vital Sign Reading Time Taken Comments Blood Pressure 120/78 04/16/2024 3:10 PM EDT Pulse 83 04/16/2024 3:10 PM EDT Temperature 36.6 C (97.9 F) 12/10/2020 1:52 PM EDT Respiratory Rate 17 12/05/2020 3:54 PM EDT Oxygen Saturation 100% 12/05/2020 3:54 PM EDT Inhaled Oxygen Concentration - - Weight 44.5 kg (98 lb) 07/18/2024 3:48 PM EST Height 157.5 cm (5' 2 ) 04/16/2024 3:10 PM EDT Body Mass Index 17.92 04/16/2024 3:10 PM EDT Plan of Treatment Health Maintenance Due Date Last Done Comments Diabetic Foot Exam 2011 Peds To Adult Transition Initial Discussion 2013 Peds To Adult Transition Annual Assessment 2015 HPV Vaccine (1 - 3-dose series) 2016 Meningococcal B Vaccine (1 of 2 - Standard) 2017 Annual PCP Team Chronic Disease Visit 2019 Chlamydia Screening (18-) 2019 Depression Screening 2019 GC (Gonorrhea) Screening (18-) 2019 HIV Screening 2019 Hepatitis C Screening 2019 LDL Cholesterol 03/29/2020 03/29/2019 Hepatitis B Vaccine (1 of 3 - 19+ 3-dose series) 06/14 Cervical Cancer Screening 2022 Pneumococcal Vaccine (2 of 2 - PCV) 11/25/202311/24 Covid-19 Vaccine (1 - season) 2024 HbA1C 10/15/2024 04/16/2024 Influenza Vaccine (Season Ended) 2025 Urine Albumin:Creatinine Ratio 05/11/2025 05/11/2024 Dilated Retinal Exam 10/08/2025 10/08/2024 DTaP,Tdap,Td Vaccine (2 - Td or Tdap) 08/23/2033 Procedures Procedure Name Priority Date/Time Associated Diagnosis Comments ALBUMIN/CREATININE RATIO, URINE Routine 05/11/2024 9:56 AM EST Other specified diabetes mellitus with other specified complication, without long-term current use of insulin (HCC) HEMOGLOBIN A1C (POC) Routine 04/16/2024 3:19 PM EDT LIPID PANEL, FASTING Routine 03/29/2019 2:55 PM EDT Gender dysphoria in adolescent and adult from Last 3 Months or Most Recently Relevant to Health Maintenance Results * ALBUMIN/CREATININE RATIO, URINE (05/11/2024 9:56 AM EST) Creatinine, Ur Random (UCRR) 94.6 20.0 - 300.0 mg/dL 05/11/2024 5:22 PM EST [facility] Albumin, Urine Random <12.0 mg/L 05/11/2024 5:22 PM EST [facility] Albumin/Creat Ratio <13 <30 mg/g 05/11/2024 5:22 PM EST [facility] Comment: Adult Male and Female Nephrotic Criteria: <30 mg/g is considered normal to mildly increased 30-300 mg/g is considered moderately increased >300 mg/g is considered severely increased KDIGO. (2013). KDIGO 2012 Clinical Practice Guideline for the Evaluation and Management of Chronic Kidney Disease. Official Journal of the International Society of Nephrology, 3(1), 1-150. Urine URINE SPECIMEN / Unknown Non Blood / Unknown 05/11/2024 9:56 AM EST 05/11/2024 9:56 AM EST Gale Kinney [employer] PROFESSION[employer] Final Result [facility] [address] [place] [address], [place] * HEMOGLOBIN A1C (POC) (04/16/2024 3:19 PM EDT) Hemoglobin A1C (POCT) 5.3 4.3 - 5.6 % [facility] Comment: Location:[facility], [address] [place] [address] [address] [place], [place], [address] Point of care (POC) Hemoglobin A1c (HGBA1C) [...] specific diabetes management situations: The POC device oven loader provides a normal range of 4.2% to 6.5% for the HGBA1C POC test. However, the [place] Diabetes Association guidelines indicate that patients with [...] anemia) that alter red blood cell lifespan. 04/16/2024 3:19 PM EDT us Gale Kinney [employer]ELD PROFESSIONAL[employer] POC TESTING Final Result [facility] POINT OF CARE [facility] [address] [place], [place] * (ABNORMAL) LIPID PANEL BASIC (03/29/2019 2:55 PM EDT) Cholesterol, Total 154 <170 mg/dL 03/30/2019 1:44 AM T [facility] Comment: <170 mg/dL, Acceptable 170-199 mg/dL, Borderline high >199 mg/dL, High Triglyceride 106(H) <90 mg/dL 03/30/2019 1:44 AM [facility] Comment: <90 mg/dL, Acceptable 90-129 mg/dL, Borderline high >129 mg/dL, High HDL Cholesterol 51 >45 mg/dL 9 1:44 AM T [facility] Comment: >45 mg/dL, Acceptable 40-45 mg/dL, Borderline <40 mg/dL, Low LDL Cholesterol, Calculated 82 <110 mg/dL 03/30/2019 1:44 AM T [facility] Comment: <110 mg/dL, Acceptable 110-129 mg/dL, Borderline high >129 mg/dL, High Non HDL Cholesterol 103 <120 mg/dL 03/30/2019 1:44 AM [facility] Comment: <120 mg/dL, Acceptable 120-144 mg/dL, Borderline high >144 mg/dL, High Fasting Time 12 hrs 03/29/2019 3:00 PM EDT [facility] VLDL Cholesterol 21(H) <18 mg/dL 03/30/20 19 1:44 AM [facility] TC:HDL Ratio 3.02 <3.76 03/30/2019 1:44 AM [facility] LDL:HDL Ratio 1.61 <2.42 03/30/2019 1:44 AM [facility] Comment: Reference: 1. Expert Panel on Integrated Guidelines for Cardiovascular Health and Risk Reduction in Children and Adolescents: National Heart, Lung and Blood [place]. Pediatrics. 2011: 128(Suppl 5):W778-179. Blood specimen (specimen) 03/29/2019 2:55 PM EDT 03/29/2019 3:00 PM EDT us Joslyn Bland MD LABORATORY Final Result [facility] [address] [place] [address] [facility] [address] [place] [address] [place] [address] from Last 3 Months or Most Recently Relevant to Health Maintenance Insurance [facility] MEDICAID Advance Directives Documents on File Type Date Recorded Patient [employer] Manager Expl anation Advance Directive(s) 11/25/2020 10:24 AM Care Teams Managing Principal Relationship Specialty Start Date End Date Eric Isbell Sr., DO PCP - General Family Medicine 03/29/19
--- OUTSIDE RECORDS SUMMARY | 2024-11-22 12:56 | XMS_ITS | Encounter Summary ---
Author Organization [facility] [employer] enter Address [address] [place] [address] Care Team Providers Care Content Analyst Name Role Phone Eric Isbell DO Primary Care Provider [phone] Reason for Visit * Reason Onset Date Comments Cancellation 04/23/2021 Encounter Details Date Type Department Care Team (Late st Contact Info) Description 04/23/[address] [facility] Outpatient Care [address] [address] Traci Godfrey Cancellation Social History Tobacco Use Types Packs/Day Years Used Date Smoking Tobacco: Never Assessed Comments Unknown Sex and Gender Information Value Date Recorded Sex Assigned at Female 11/24/2021 10:11 AM EDT Legal Sex Female 1:36 PM EDT Gender Identity Transgender Male 11/24/2021 10:1 1 AM EDT Sexual Orientation Not on file documented as of this encounter Miscellaneous Notes * Telephone Encounter - Traci Godfrey - 04/23/2021 2:42 PM EDT Left a voicemail regarding bumped appt on 05/20 ABL documented in this encounter Plan of Treatment Not on file documented as of this encounter Visit Diagnoses Not on filedocumented in this encounter Care Teams Content Analyst Relationship Specialty Start Date End Date Sukhi DO Eric PCP - General Family Medicine 03/03/21 documented as of this encounter
--- OUTSIDE RECORDS SUMMARY | 2024-11-22 12:56 | XMS_ITS | Encounter Summary ---
Author Organization [facility] Address [id number] [address] [place] [address] Care Team Providers Care Complaint Investigator Name Role Phone Eric Isbell Primary Care Provider [phone] Encounter Details Date Type Department Care Team (Late st Contact Info) Description 11/20/2024 Telephone [facility] [address] [facility] [address] [place] [address] Jaquelin Sheth Social History Tobacco Use Types Packs/Day Years Used Date Smoking Tobacco: Never Smokeless Tobacco: Never Alcohol Use Standard Drinks/Week Comments Not Currently 0 (1 standard drink = 0.6 oz pur e alcohol) [facility] Utilities Answer Date Recorded In the [...] encounter Miscellaneous Notes * Telephone Encounter - Jaquelin Sheth - 11/20/2024 5:27 PM EDT Images from the original note were not included. Maximino webber for PSG. Ordered by Irwin Davies and indicated as own followup. Routed to [place] at sleep lab to request PSG results be sent to referring provider documented in this encounter Plan of Treatment Upcoming Encounters Date Type Department Care Team (Late st Contact Info) Description 12/24/2024 2:45 PM EDT Office Visit [facility] [address] [place] [address] Logan Mckeon MD [address] [place] [address] documented as of this encounter Goals Goal Patient Goal Type Associated Problems Recent Progress Patient-Stated? Author <enter goal here> General Yes Jeanna Damon, MEDICAL ACCOUNTING CLERK Note: Evaluation of progress towards goal: home [...] documented as of this encounter Care Teams Complaint Investigator Relationship Specialty Start Date End Date Eric Isbell DO [address] [place] [id number] PCP - General Family Medicine 08/16/24 documented as of this encounter
--- OUTSIDE RECORDS SUMMARY | 2024-11-22 12:56 | XMS_ITS | Encounter Summary ---
Author Organization [facility] enter Address [address] [place] [address] Care Team Providers Care Community Assistant Name Role Phone Eric Isbell DO Primary Care Provider [phone] Encounter Details Date Type Department Care Team (Late st Contact Info) Description 11/29/2022 Telephone [facility] [address] [facility] [address] [place] [address] Tania Teixeira Social History Tobacco Use Types Packs/Day Years Used Date Smoking Tobacco: Never Assessed Comments Unknown Sex and Gender Information Value Date Recorded Sex Assigned at Female 11/24/2021 10:11 AM EDT Legal Sex Female 1:36 PM EDT Gender Identity Transgender Male 11/24/2021 10:1 1 AM EDT Sexual Orientation Not on file documented as of this encounter Plan of Treatment Not on file documented as of this encounter Visit Diagnoses Not on filedocumented in this encounter Care Teams Community Assistant Relationship Specialty Start Date End Date Eric Isbell DO PCP - General Family Medicine 03/03/21 documented as of this encounter
[2024-11-22 13:20] LABS: Basophils Percent Auto 0.3 % (0.2-2.0); Eosinophils Absolute Auto 0.1 10^3/uL (0.0-0.7); Eosinophils Percent Auto 1.1 % (0.9-7.0); Hematocrit 43.5 % (36.0-48.0); Hemoglobin 14.7 g/dL (12.0-16.0); Immature Granulocytes Abs Auto 0.01 10^3/uL (0.00-0.03); Immature Granulocytes Pct Auto 0.1 % (0.0-0.5); Lymphocytes Absolute Auto 3.6 10^3/uL (1.2-3.8); Lymphocytes Percent Auto 45.5 % (20.5-60.0); Mean Corpuscular HGB Conc 33.8 g/dL (29.9-35.2); Mean Corpuscular Hemoglobin 30.6 pg (26.7-34.0); Mean Corpuscular Volume 90.4 fL (81.0-99.0); Mean Platelet Volume 9.6 fL (9.5-13.5); Monocytes Absolute Auto 0.6 10^3/uL (0.3-0.8); Monocytes Percent Auto 8.1 % (1.7-12.0); Neutrophils Absolute Auto 3.5 10^3/uL (1.4-6.5); Neutrophils Percent Auto 44.9 % (43.0-75.0); Platelet Count 266 10^3/uL (150-450); Red Blood Count 4.81 10^6/uL (4.20-5.40); Red Cell Distribution Width 12.2 % (11.0-15.0); White Blood Count 7.9 10^3/uL (4.0-11.0)
[2024-11-22 13:42] LABS: Anion Gap 12.7; BUN Creatinine Ratio 13.8; Carbon Dioxide 28.3 mmol/L (21.0-32.0); Chloride 107 mmol/L (98-107); Estimated GFR (African America >60 (>=60 mL/min/1.73m^2); Estimated GFR (Non-African Ame >60 (>=60 mL/min/1.73m^2); Glucose 83 mg/dL (74-106); Sodium 144 mmol/L (136-145)
== END 2024-11-22 12:52 | disposition home or self-care (01) ==
LOC: LAB 12:53
PROVIDERS: PCP Family Medicine; Visit Provider Internal Medicine Cardiovascular Disease
DX: R00.2 Palpitations (principal)
CPT/HCPCS: 36415; 80048

== ENCOUNTER 2024-12-29 15:33 | Emergency (ER) | payer OTHER, SELFPAY ==
[2024-12-29 15:34] VITALS: BP 108/70; PULSE 99; TEMP 37.2; O2SAT 100; BMI 17.7
--- NOTE | 2024-12-29 15:36 | XR_ITS ---
[facility] [place] [id number] Patient Name: BHAVNA VILLAR MRN: [id number] date: 2000 Sex: F Assigned Patient Location: ED.MAIN Current Patient Location: ED.MAIN Accession/Order Number: [id number] Exam Date: 12/29/2024 17:11 Report Date: 12/29/2024 17:11 At the request of: ELSA OSMAN Procedure: XR chest 1V Plain film chest Single view HISTORY: Seizure. Weakness COMPARISON: 08/14/2024 FINDINGS: SUPPORT DEVICES: None POSTSURGICAL CHANGES: None HEART: Within normal limits PULMONARY BOBBI: Within normal limits MEDIASTINUM: Unremarkable LUNGS AND PLEURA: No acute lung process, pleural effusion or pneumothorax identified. BONY STRUCTURES: Intact ADDITIONAL FINDINGS None XR/XR chest 1V IMPRESSION: No acute process. Impression dictated by: Gerardo Lamar M.D. 12/29/2024 5:11 PM Dictation Location: Conductor Electronically authenticated by: [id number] Y Date: 12/29/2024 17:11
--- NOTE | 2024-12-29 15:36 | ECG_ITS ---
[facility] Test Date: 2024-12-29 Pat Name: BHAVNA VILLAR Department: Room: - Gender: Female Restaurant Crew: : 2000 Requested By: [id number] Order Number: [id number] Reading MD: MACK PEDRAZA M.D. Measurements Intervals [place] Rate: 96 P: 90 NH: 142 QRS: 92 QRSD: 82 T: 76 QT: 348 QTc: 402 Interpretive Statements 1100 Sinus rhythm 4068 Nonspecific Twave abnormality 7102 Moderate right axis deviation 9130 borderline ECG Compared to ECG 08/14/2024 10:39:25 Right-axis deviation now present Electronically Signed On 12-30-2024 17:25:12 EDT by MACK PEDRAZA M.D.
--- NOTE | 2024-12-29 15:38 | ED.GENADUL1 ---
HPI HPI - General Adult General Chief complaint: Seizure Stated complaint: SEIZURE Time Seen by Provider: 12/29/24 15:36 History of Present Illness HPI narrative: 24-year-old male presents to the ER via EMS for evaluation of not feeling well. ( female transitioning to male) He has a pertinent history of epilepsy and lives with his father. EMS reported that he was on the phone with his mother who is concerned that his blood sugars were low and that the patient was not feeling well. Upon EMS arrival the patient was lying on the floor and responsive with only vague complaints. enroute EMS did witness what appeared to be like some mild seizure activity and he became quiet with stable respirations and no change in his vital signs. Patient on arrival appears slightly postictal but arousable to painful stimuli. His father is in [facility] but his mother lives in [place]. Per nursing staff and have seen this patient before state there is some social factors in the patient's living as he prefers his mother but lives with his father. Patient was home alone when EMS was called. Related Data Home Medications �Medication �Instructions �Recorded �Confirmed clobazam 10 mg tablet 10 mg PO .qhs 08/23/23 12/29/24 midazolam 5 mg/spray (0.1 mL) 1 spray intranasal PRN PRN FOR 08/24/23 12/29/24 nasal spray (Nayzilam) SEIZURES metoprolol succinate 25 mg 25 mg PO DAILY 01/28/24 12/29/24 tablet,extended release 24 hr dexmethylphenidate 5 mg 5 mg PO DAILY 07/07/24 12/29/24 capsule,extended release [id number] lamotrigine 200 mg tablet 200 mg PO Q12H 07/07/24 12/29/24 brivaracetam 100 mg tablet 100 mg PO BID 07/08/24 12/29/24 (Briviact) azelaic acid 15 % topical gel 1 applic topical DAILY 08/14/24 12/29/24 cyclobenzaprine 5 mg tablet 5 mg PO BID 08/14/24 12/29/24 ondansetron HCl 4 mg tablet 4 mg PO Q8H PRN nausea and vomiting 08/14/24 12/29/24 topiramate 25 mg tablet 25 mg PO Q12H 12/29/24 12/29/24 Previous Rx's �Medication �Instructions �Recorded promethazine 25 mg tablet 25 mg PO TID PRN nausea and 12/29/24 vomiting 2 days #6 tabs Allergies Allergy/AdvReac Type Severity Reaction Status Date / Time codeine Allergy Unknown Rash Verified 08/14/24 10:20 Opioid HPI Opioid Management Most Recent Opioid Data: Last Pain Scale 5 07/08/24, 10:56 Ur Phencyclidine Scrn, (NEGATIVE) Negative 07/07/24, 23:48 Review of Systems ROS Status of ROS unobtainable due to medical condition and unobtainable due to mental status PFSH PFS Social History Smoking status: Current every day smoker Little interest or pleasure in doing things: not at all Feeling down, depressed, or hopeless: not at all Exam Narrative Exam Narrative: Nurses notes and vital signs reviewed and patient is not hypoxic. General: The patient appears well and in no apparent distress. Patient is resting comfortably on cart. Skin: Warm, dry, no pallor noted. No evidence of rash Head: Normocephalic, atraumatic Neck: Supple, trachea mid-line, no tenderness, no lymphadenopathy Eye: Pupils are equal, round and reactive to light, EOMI Ears, Nose, Mouth, and Throat: TM are clear, normal light reflex, oral mucosa is moist, no posterior oropharynx erythema or hypertrophy, uvula is mid-line Cardiovascular: Regular Rate and Rhythm Respiratory: Patient is in no distress, no accessory muscle use, lungs are clear to auscultation, no wheezing, rales or rhonchi. Chest Wall: no tenderness Back: non-tender, no CVA tenderness Musculoskeletal: normal ROM, no tenderness, no swelling GI: Normal bowel sounds, no tenderness to palpation, no masses appreciated. No rebound, guarding, or rigidity noted. Neurological: Initial appearance was postical, but pt was arousable to painful stimula with sternal rub and shortly there after was A&O x4 Psychiatric: Cooperative Constitutional Vital Signs, click to edit/add: Last Vital Signs Temp 99.0 F 12/29/24 15:34 Pulse 99 H 12/29/24 15:34 Resp 18 12/29/24 15:34 BP 108/70 12/29/24 15:34 Pulse Ox 100 12/29/24 15:34 O2 Del Method Room Air 12/29/24 15:34 Course Vital Signs Vital signs: Vital Signs Temperature 99.0 F 12/29/24 15:34 Pulse Rate 99 H 12/29/24 15:34 Respiratory Rate 18 12/29/24 15:34 Blood Pressure 108/70 12/29/24 15:34 Pulse Oximetry 100 12/29/24 15:34 Oxygen Delivery Method Room Air 12/29/24 15:34 Temperature 99.0 F 12/29/24 15:34 Pulse Rate 99 H 12/29/24 15:34 Respiratory Rate 18 12/29/24 15:34 Blood Pressure 108/70 12/29/24 15:34 Pulse Oximetry 100 12/29/24 15:34 Oxygen Delivery Method Room Air 12/29/24 15:34 Medical Decision Making MDM Narrative Medical decision making narrative: Patient reports 7 pound weight loss while taking Topamax, states the medication makes him vomit. Last seizure was 6 months ago patient has a chest stimulator that warns of upcoming seizure. Pt has heart macy on , but states he does not know why. history of tachycardia in the past.. pt notes lump at groin insertion. Patient reevaluated at 1615-he is sitting up and in no apparent distress talking with his mother on the phone. We discussed his recent history. Patient states he has been on Topamax in the past and had complications including a hospitalization and use of a ventilator. Patient states since starting the medication he has had bouts of nausea and vomiting and has had 7 pound weight loss. He plans to contact his neurologist this weekend to discuss different medication. Patient states that he has been compliant with his other medications including Lamictal which will be sent for a level. The lump in the right groin was evaluated with trace bruising and no significant mass or pulsation, induration about the size of a pea. The patient is thin with little to no overlying adipose tissue and this is likely normal for postcatheterization. We discussed other etiologies such as pseudoaneurysm and need to be evaluated for this if the area grows in size or becomes more painful. The patient notes that it is just tender to touch since the procedure. Patient states he is active and presenting jujitsu but has not resumed this activity yet since his catheterization. Patient states he has a loop recorder in with a known history of SVT and [facility]. The patient states he was getting set up for a vagus nerve stimulator for his seizures but the operating surgeon backed out, and patient currently only sees Dr. Aden Gonzáles neurology at [facility] The patient verbalized a plan to send his office a message through his portal and plans to contact their office on Tuesday to discuss medications. Reviewed: Patient's urinalysis, CO2 1780 ketones in urine. Likely dehydration consistent with patient's history above. Patient received a liter and a half of fluids IV and is able to tolerate oral food and liquids here no nausea or vomiting noted and no recurrent seizure activity. Patient reports compliance with medications. Lamictal level is pending. We discussed patient's concern with nausea and vomiting from Topamax, prescription of Phenergan sent to her pharmacy she will contact her neurologist to discuss a possible medication change given past history of hospitalization on Topamax for prolonged period of time. Patient thankful The patient is to followup with Neurologist on Tuesday, primary care physician in next 2-3 days or to return to the emergency department should any of the signs or symptoms worsen or new symptoms develop. Patient had questions answered. The patient agrees with the following Diagnosis and Treatment plan and the patient will be discharged home. Lab Data Labs: Lab Results 12/29/24 12/29/24 12/29/24 Range/Units 16:00 16:03 17:48 WBC 9.9 (4.0-11.0) 10^3/uL RBC 4.48 (4.20-5.40) 10^6/uL Hgb 13.9 (12.0-16.0) g/dL Hct 40.2 (36.0-48.0) % MCV 89.7 (81.0-99.0) fL MCH 31.0 (26.7-34.0) pg MCHC 34.6 (29.9-35.2) g/dL RDW 12.1 (11.0-15.0) % Plt Count 208 (150-450) 10^3/uL MPV 9.9 (9.5-13.5) fL Neut % (Auto) 86.1 H (43.0-75.0) % Lymph % (Auto) 10.0 L (20.5-60.0) % [place] % (Auto) 3.3 (1.7-12.0) % Eos % (Auto) 0.0 L (0.9-7.0) % Baso % (Auto) 0.3 (0.2-2.0) % Neut # (Auto) 8.5 H (1.4-6.5) 10^3/uL Lymph # (Auto) 1.0 L (1.2-3.8) 10^3/uL [place] # (Auto) 0.3 (0.3-0.8) 10^3/uL Eos # (Auto) 0.0 (0.0-0.7) 10^3/uL Baso # (Auto) 0.0 (0.0-0.1) 10^3/uL Abs Immat Gran (auto) 0.03 (0.00-0.03) 10^3/uL Imm/Tot Granulo (auto) 0.3 (0.0-0.5) % Sodium 143 (136-145) mmol/L Potassium 3.6 (3.5-5.1) mmol/L Chloride 107 (98-107) mmol/L Carbon Dioxide 17.3 L (21.0-32.0) mmol/L Anion Gap 22.3 BUN 17.0 (7.0-18.0) mg/dL Creatinine 0.92 (0.55-1.02) mg/dL Est GFR ( Amer) >60 (>=60 mL/min/1.73m^2) Est GFR (Non-Af Amer) >60 (>=60 mL/min/1.73m^2) BUN/Creatinine Ratio 18.5 Glucose 77 (74-106) mg/dL Calcium 9.0 (8.5-10.1) mg/dL Total Bilirubin 1.1 H (0.2-1.0) mg/dL AST 21 (15-37) U/L ALT 19 (14-59) U/L Alkaline Phosphatase 59 (46-116) U/L Total Protein 7.5 (6.4-8.2) g/dL Albumin 4.2 (3.4-5.0) g/dL Globulin 3.3 g/dL Albumin/Globulin Ratio 1.3 Urine Color Lt. yellow (YELLOW) Urine Clarity Clear (CLEAR) Urine pH 6.0 (5.0-9.0) Ur Specific [place] 1.025 (1.005-1.025) Urine Protein Negative (NEG/TRACE) mg/dL Urine Glucose (UA) Negative (NEGATIVE) mg/dL Urine Ketones >=80 A (NEGATIVE) mg/dL Urine Occult Blood Trace-i (NEGATIVE) Urine Nitrite Negative (NEGATIVE) Urine Bilirubin Negative (NEGATIVE) Urine Urobilinogen 1.0 (0.2-1.0) EU/dL Ur Leukocyte Esterase Negative (NEGATIVE) POC Glucose 81 (74-106) mg/dL Imaging Data Chest x-ray: Radiologist's impression: ITS Impressions Chest X-Ray 12/29/24 15:36 IMPRESSION: No acute process. Impression dictated by: Gerardo Lamar M.D. 12/29/2024 5:11 PM Dictation Location: [facility] Electronically authenticated by: [id number] Y Date: 12/29/2024 17:11 ECG Data Attestation: I personally reviewed and interpreted this ECG as follows: Interpretation: EKG interpretation: Emergency Department physician interpretation, normal sinus rhythm 96 bpm, no ectopy, no ST segment elevation,right axis deviation Discharge Plan Discharge Chief Complaint: Seizure Clinical Impression: History of epilepsy, Seizure, Dehydration Patient Disposition: Home, Self-Care Time of Disposition Decision: 18:05 Condition: Good Prescriptions / Home Meds: New promethazine 25 mg tablet 25 mg PO TID PRN (Reason: nausea and vomiting) 2 Days Qty: 6 0RF No Action clobazam 10 mg tablet 10 mg PO .qhs Nayzilam 5 mg/spray (0.1 mL) spray,non-aerosol 1 spray INTRANASAL PRN PRN (Reason: FOR SEIZURES) metoprolol succinate 25 mg tablet extended release 24 hr 25 mg PO DAILY lamotrigine 200 mg tablet 200 mg PO Q12H dexmethylphenidate 5 mg capsule,ER biphasic 50-50 5 mg PO DAILY Briviact 100 mg tablet 100 mg PO BID azelaic acid 15 % gel 1 applic TOPICAL DAILY cyclobenzaprine 5 mg tablet 5 mg PO BID ondansetron HCl 4 mg tablet 4 mg PO Q8H PRN (Reason: nausea and vomiting) topiramate 25 mg tablet 25 mg PO Q12H Print Language: Setswana Instructions: Dehydration (ED), Epilepsy (ED) Additional Instructions: Contact your Neurologist on Tuesday to discuss Topamax use Referrals: ADEN GONZÁLES [Physician, Neurology] - As soon as possible KAVIN FRENCH [Primary Care Provider, Family Practice] - 1 week
--- OUTSIDE RECORDS SUMMARY | 2024-12-29 15:43 | XMS_ITS | CCD ---
Author Organization [facility] Care Team Providers Care Audio/Visual Operator Name Role Phone ALEXA SAHA Admitting Unavailable DEBORAHEGALEXA CHUN Attending Unavailable HOUSE, KAVIN Primary Care Unavailable SELF, REFERRED Referring Unavailable HOUSE, SR KAVIN Boland Primary Care Unavailable JUANJOSE JIANG Attending Unavailabl e DION WHITE Attending Unavailable HOUSE, KAVIN Boland Referring Unavailable HOUSE, KAVIN Boland Primary Care Unavailable House, DO Kavin Primary Care Provider DO Bobby Rojas Emergency Provider Unavai DO Tommy Hernandez Emergency Provider DO Som Fiore Emergency Provider [phone] DO Roberto Whittaker Emergency Provider DO Tommy Bowen Emergency Provider DO Kavin French Primary Care Provider DO [place] Emergency Provider MD Pipe Jose Emergency Provider [phone] DO Som Fiore Emergency Provider Edwards Kavin Sams Primary Care Provider DO Tommy Bowen Emergency Provider DO Kavin French Primary Care Provider DO [place] Emergency Provider MD Pipe Jose Emergency Provider [phone] DO Som Fiore Emergency Provider DO [place] Emergency Provider [phone] DO Kavin French Primary Care Provider Leslie DO Attila Anderson Emergency Provider Edwards, DO Reyes Primary Care Provider Panfilo DO Roberto Espinosa Emergency Provider House, DO Reyes Primary Care Provider Nelson, DO Aiken J Emergency Provider Unavailab le Panfilo DO Mejia A Emergency Provider ZEYAD Bowen Emergency Provider [facility] Federcia E Emergency Provider [phone] HOUSE, DR REYES Primary Care Unavailable TAMIR, [...] OSULLIVAN Consulting Unavailable DERROW, COSMO Consulting Unavailable SUFFOLK, DR REYES Primary Care Unavailable MARKER ., DR CASTRO Consulting Unavailable MARKER ., DR CASTRO Admdevang Unavailable MARKER ., DR CASTRO Attending Unavailable DEBBIE BRITT Consulting Unavailable ARVIND, NAHUN Consulting Unavailable GILLIAN, DR REYES Primary Care Unavailable SOPHIE ., COLTEN Admitting Unavailable SOPHIE ., COLTEN Attending Unavailable RADHA, DR MARGARITA Frankel Consulting Unavailable SOPHIE ., COLTEN Consulting Unavailable LO TUTTLE Consulting Unavailable Edwards Sr., Kavin BUCKLEY Primary Care Provider SUFFOLK KAVIN LYONS Primary Care Unavailable STEFANIE ORTEZ Attending Unavailable Edwards, DO Reyes Primary Care Provider [phone] DO Som Fiore Emergency Provider ZEYAD Rivera Emergency Provider Edwards, DO Reyes Primary Care Provider DO Som Fiore Emergency Provider [phone] ZEYAD Rivera Emergency Provider [phone] MD Pipe Jose Emergency Provider [phone] NON STAFF Primary Care Provider Unavailabl e Gillian HUGGINS, Kavin Boland Primary Care Provider HOUSE SR, KAVIN P Primary Care Unavailable EMILIA KHALEK, MOHAMED Referring Unavailabl e EMILIA KHALEK, MOHAMED Referring Unavailabl e HOUSE SR, KAVIN P Primary Care Unavailable HOUSE SR, KAVIN P Primary Care Unavailable AMAN TAPIA Attending Unavailable EMILIA GEETHAALEK, ISABELLA Referring Unavailabl e HOUSE SR, KAVIN P Primary Care Unavailable EMILIA KHALEK, ASAELAMED Referring Unavailabl e HOUSE SR, KAVIN P Primary Care Unavailable House Sr., DOKavin Primary Care Provider HOUSE SR, KAVIN P Primary Care Unavailable GALE BASSETT Referring Unavailable Samson SAILMAKER, Lavonne Goodrich Unavailable Edwards DO, Kavin Boland Primary Care Provider ÁNGEL POPE Admitting Unavailable ÁNGEL POPE Attending Unavailable DAVID RASMUSSEN Referring Unavailable HOUSE, KAVIN P Primary Care Unavailable SHAWNEE CHIRINOS Referring Unavailable HOUSE, KAVIN P Primary Care Unavailable SANTIO-LINSEY JUÁREZ Referring Unavai lable SUFFOLK, KAVIN P Primary Care Unavailable SANTIO-LINSEY JUÁREZ Referring Unavai lable SUFFOLK, KAVIN P Primary Care Unavailable SANTIO-LINSEY JUÁREZ Referring Unavai lab HOUSE, KAVIN P Primary Care Unavailable ROSALINE HARRIS Referring Unavailable HOUSE, KAVIN P Primary Care Unavailable ENRIQUETA TSE I Referring Unavailable HOUSE, KAVIN P Primary Care Unavailable JAJA RICE Referring Unavailable HOUSE, KAVIN P Primary Care Unavailable DEBBIE MCKEON Admitting Unavailable DEBBIE MCKEON Attending Unavailable DEBBIE MCKEON Referring Unavailable HOUSE, KAVIN P Primary Care Unavailable DEBBIE MCKEON Attending Unavailable DEBBIE MCKEON Referring Unavailable HOUSE, KAVIN P Primary Care Unavailable BEATA DODSON Admitting Unavailable BAETA DODSON Attending Unavailable AUDREY HOPPER Referring Unavailable HOUSE, KAVIN P Primary Care Unavailable TEJ LIZARRAGA Consulting Unavailable JUDE PARRA Referring Unavailable HOUSE, KAVIN P Primary Care Unavailable DEBBIE MCKEON Attending Unavailable HOUSE, KAVIN P Referring Unavailable HOUSE, KAVIN P Primary Care Unavailable HOUSE, KAVIN P Referring Unavailable HOUSE, KAVIN P Primary Care Unavailable House DO, Kavin P Primary Care Provider House DO, Kavin P Primary Care Provider ENRIQUETA TSE I Attending Unavailable HOUSE, KAVIN P Referring Unavailable HOUSE, KAVIN P Primary Care Unavailable HOUSE, KAVIN P Referring Unavailable HOUSE, KAVIN P Primary Care Unavailable DARYA, NETTE Pitt Attending Unavailable JESUS, ENRIQUETA Osorio Referring Unavailable HOUSE, KAVIN P Primary Care Unavailable DARYA, NETTE Pitt Attending Unavailable HOUSE, KAVIN P Referring Unavailable HOUSE, KAVIN P Primary Care Unavailable DWAYNE, JAJA Attending Unavailable JESUS, ENRIQUETA Osorio Referring Unavailable HOUSE, KAVIN P Primary Care Unavailable GABRIEL-MELVIN, JAJA Attending Unavailable HOUSE, KAVIN P Referring Unavailable HOUSE, KAVIN P Primary Care Unavailable HOUSE, KAVIN P Referring Unavailable HOUSE, KAVIN P Primary Care Unavailable DWAYNE, JAJA Attending Unavailable HOUSE, KAVIN P Referring Unavailable HOUSE, KAVIN P Primary Care Unavailable KAREN NEELY Attending Unavailable HOUSE, KAVIN P Referring Unavailable HOUSE, KAVIN P Primary Care Unavailable DEBBIE MCKEON Referring Unavailable HOUSE, KAVIN P Primary Care Unavailable FUMCatina, DEBBIE Waldron Attending Unavailable HOUSE, KAVIN P Referring Unavailable HOUSE, KAVIN P Primary Care Unavailable GLORIA ZACARIAS Attending Unavailable SERJIO, GALE Frankel Referring Unavailable HOUSE SR, KAVIN P Primary Care Unavailable NAHUN GONGORA Attending Unavailable SERJIO, GALE Frankel Referring Unavailable HOUSE SR, KAVIN P Primary Care Unavailable SERJIO, GALE Frankel Attending Unavailable HOUSE SR, KAVIN P Primary Care Unavailable SERJIO, GALE R Referring Unavailable HOUSE SR, KAVIN P Primary Care Unavailable SERJIO, GALE Frankel Attending Unavailable HOUSE SR, KAVIN P Primary Care Unavailable House DO, Kavin P Primary Care Provider Ly DOTana Attending Provider House DO, Kavin Primary Care Provider Tana Solis Attending Unavailable Ly, Tana Pitt Admitting Unavailable House, Kavin Primary Care Unavailable House, Kavin Primary Care Unavailable Ly, Tana Pitt Attending Unavailable Ly, Tana Pitt Admitting Unavailable LAVONNE THOMAS Referring Unavailab le HOUSE, KAVIN P Primary Care Unavailable RITA, REA Referring Unavailable RITA, REA Referring Unavailable ISAIAS, JOJO Attending Unavailable ISAIAS, JOJO Referring Unavailable ISAIAS, JOJO Referring Unavailable ISAIAS, JOJO Attending Unavailable ISAIAS, JOJO Admitting Unavailable ISAIAS, JOJO Referring Unavailable ISAIAS, JOJO Referring Unavailable ISAIAS, JOJO Referring Unavailable ISAIAS, JOJO Referring Unavailable ISAIAS, JOJO Attending Unavailable ISAIAS, JOJO Attending Unavailable MARISOL, GLORIA Attending Unavailable ISAIAS, JOJO Referring Unavailable ISAIAS, JOJO Referring Unavailable ISAIAS, JOJO Referring Unavailable ISAIAS, JOJO Referring Unavailable ISAIAS, JOJO Referring Unavailable ISAIAS, JOJO Referring Unavailable ISAIAS, JOJO Referring Unavailable ISAIAS, JOJO Referring Unavailable HOUSE, KAVIN P Primary Care Unavailable , FRANCISCO Jorge Attending Unavailable [facility], JAJA Referring Unavailable HOUSE, KAVIN P Primary Care Unavailable HOUSE, KAVIN P Primary Care Unavailable WILLIAMSON, DEBBIE Attending Unavailable WILLIAMSON, DEBBIE Attending Unavailable WILLIAMSON, DEBBIE Referring Unavailable HOUSE, KAVIN P Primary Care Unavailable FUMO, DEBBIE Waldron Referring Unavailable HOUSE, KAVIN P Primary Care Unavailable CORNELIUS EPSTEIN Referring Unavailable HOUSE, KAVIN P Primary Care Unavailable HOUSE, KAVIN P Primary Care Unavailable HOUSE, KAVIN P Primary Care Unavailable HANNA DAN Attending Unavailable HOUSE, DO KAVIN Boland Admitting Unavailable HOUSE, DO KAVIN Boland Attending Unavailable HOUSE, KAVIN P Primary Care Unavailable HOUSE, DO KAVIN P Attending Unavailable HOUSE, KAVIN P Primary Care Unavailable Allergies Allergy Classification Reported Allergen(s) Allergy Type Date of Onset Reaction(s) Facility (20 sources) Codeine; Translations: [CODEINE] Drug Allergy 8 Hives [facility] Repository (20 sources) Codeine Drug Allergy 8 Hives, Itching [facility] Work Phone: (1 source) Codeine Drug Allergy 5 [facility] Repository Medications Current Medications Medication Drug Class(es) Dates Sig (Normalized) Sig (Original) [id number] 200 actuat albuterol 0.09 mg/actuat metered dose inhaler (4 sources) beta2-Adrenergic Agonist Start: 08-16-2024 take 2 puff(s) by inhalation every four hours as needed for wheezing albuterol (PROVENTIL HFA;VENTOLIN HFA) 90 mcg/actuation inhaler Indications: Influenza A (H1N1) , Dehydration Inhale 2 puffs every 4 (four) hours as needed for wheezing. 18 g 08/16/2024 Active atomoxetine 40 mg oral capsule (20 sources) Norepinephrine Reuptake Inhibitor Start: 01-28-2024 End: 05-21-2024 take 1 capsule by mouth once daily atomoxetine (STRATTERA) 40 mg capsule Take 40 mg by mouth once daily. 01/28/2024 Active take 1 capsule by mouth in the m orning atomoxetine (STRATTERA) 25 mg capsule Take 1 capsule (25 mg total) by mouth in the morning. 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 21 capsule 08/16/2024 Active biotin 10 mg oral capsule (2 sources) biotin 10 MG capsule Take 100 mg by mouth in the morning. 0 Active brivaracetam 100 mg oral tablet (20 sources) Start: 04-02-2024 take 1 tablet by mouth twice daily at bedtime Briviact 100 MG tablet tablet Indications: Intractable complex partial epilepsy (HCC) , Focal epilepsy with impairment of consciousness, intractable (HCC) , Epilepsy, 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HCC) TAKE 1 TABLET BY MOUTH TWICE DAILY [...] 1 tablet by ketan th once daily Brivaracetam (Briviact) 100 mg tablet Active 100 MG PO Daily April 02, 2024 12:00am Start: 05-16-2023 End: 05-15-2024 take 1 tablet [...] 2 tablets (100 mg total) before bedtime. Active cefuroxime 250 mg oral tablet (13 sources) Cephalosporin Antibacterial Start: 05-24-2023 take 1 [...] lotion (20 sources) Lincosamide Antibacterial Start: 10-11-2023 End: 07-26-2024 Clindamycin Phosphate (CLEOCIN T) 1 % lotion Apply to face and back once daily/ 30 day supply 10/11/2023 Active Start: 05-24-2023 clindamycin (C leocin T) 1 % lotion Indications: Acne vulgaris Apply thin layer to face, once daily in the morning, 30 day supply 60 mL 2 05/24/2023 Active cloBAZam 10 mg oral tablet (20 sources) Benzodiazepine Start: 04-06-2023 End: 05-21-2024 take 1 tablet by mouth at bedtime cloBAZam (Onfi) 10 MG tablet Indications: Intractable complex partial epilepsy (HCC) Take 1 tablet (10 mg) by mouth [...] by mouth in the morning. 1999. Active take 8 mL by mouth i n the morning cloBAZam (ONFI) 2.5 mg/mL suspension Take 8 mL (20 mg total) by mouth in the morning and 8 mL (20 mg total) before bedtime. 0 Active cyclobenzaprine hydrochloride 5 mg oral tablet (4 sources) Muscle Relaxant Start: 08-09-2024 cyclobenzaprine (FLEXERIL) 5 mg tablet 1 tablet (5 mg total). 08/09/2024 Active cyproheptadine hydrochloride 4 mg oral tablet [...] 08/10/2023 Discontinued dexamethasone 2 mg oral tablet (15 sources) Corticosteroid Start: 06-12-2024 End: 06-22-2024 take 1 tablet by mouth in the morning dexAMETHasone (Decadron) 2 MG tablet Indications: Intractable chronic migraine without aura and without status migrainosus Take 1 tablet (2 mg) by mouth in the morning and 1 tablet (2 mg) in the evening. Take with meals. Do all this for 10 days. 20 tablet 06/13/2024 Active 24 hr dexmethylphenidate hydrochloride 10 mg extended release oral capsule (20 sources) Central Nervous System Stimulant Start: 09-06-2024 End: 10-10-2024 take 1 capsule by mouth once daily dexmethylphenidate XR (Focalin XR) 10 MG 24 hr capsule Indications: ADD (attention deficit disorder) without hyperactivity TAKE 1 CAPSULE BY MOUTH DAILY, DO NOT CRUSH, CHEW, OR SPLIT 30 capsule 10/10/2024 Active Start: 05-21-2024 End: 08-02-2024 take 1 capsule by mouth once daily dexmethylphenidate XR (Focalin XR) 5 MG 24 hr capsule Indications: ADD (attention deficit disorder) without hyperactivity Take 1 capsule (5 mg) by mouth Daily Do not crush, chew, or split. 30 capsule 07/03/2024 Active docusate sodium 100 mg oral capsule (7 sources) Start: 12-12-2023 End: 03-11-2024 take 1 [...] Active docusate sodium 50 mg / sennosides, skilled nursing 8.6 mg oral tablet (20 sources) Start: 12-07-2023 take 8.6-50 mg by mouth once daily Senokot S 8.6-50 MG tablet Take 2 tablets by mouth Daily 12/07/2023 Active doxepin hydrochloride 10 mg oral capsule (2 sources) Tricyclic Antidepressant Start: 12-06-2024 End: 12-06-2025 take 1 capsule by mouth at bedtime doxepin (SINEquan) 10 MG capsule Indications: Chronic insomnia Take 1 capsule (10 mg) by mouth at bedtime 30 capsule 11 12/06/2024 12/06/2025 Active 1 ml erenumab-aooe 140 mg/ml auto-injector (20 sources) Start: 11-17-2023 End: 11-16-2024 inject 140 mg by subcutaneous injection every month erenumab-aooe 140 mg/mL subcutaneous auto-injector (AIMOVIG) Inject 140 mg subcutaneously once every month. 01/28/2024 Active Start: 09-30-2023 End: 09-29-2024 erenumab-aooe (AIMOVIG AUTOI NJECTOR) 140 mg/mL auto-injector Inject 140 mg under the skin every 28 days. 09/30/2023 09/29/2024 Active flecainide acetate 100 mg oral tablet (20 sources) Antiarrhythmic Start: 02-07-2024 End: 02-06-2025 take 1 tablet by mouth in the morning flecainide (Tambocor) 100 MG tablet Take 100 mg by mouth in the morning and 100 mg in the evening. 02/07/2024 02/06/2025 Active Start: 02-07-2024 End: 02-06-2025 take 1 tablet by mouth in the morning flecainide (Tambocor) 100 MG tablet Take 100 mg by mouth in the morning and 100 mg in the evening. 02/07/2024 02/06/2025 Active 1.5 ml fremanezumab-vfrm 150 mg/ml prefilled syringe (20 sources) Start: 05-22-2024 fremanezumab (Ajovy) prefilled syringe 225 mg ibuprofen 600 mg oral tablet (20 sources) Nonsteroidal Anti-inflammatory Drug Start: 09-20-2023 take 1 tablet by mouth every six hours as needed ibuprofen 600 MG tablet Take 600 mg by mouth every 6 (six) hours if needed 09/20/2023 Active Start: 05-12-2023 take 1 tablet by ketan th three times daily as needed for pain Ibuprofen 800 mg tablet Active 800 MG PO Three times daily as needed for pain May 12, 2023 1:00am ketorolac tromethamine 10 mg oral tablet (12 sources) Nonsteroidal Anti-inflammatory Drug, Cyclooxygenase Inhibitor Start: 11-13-2021 keTORolac (TORADOL) 10 mg tablet Take by mouth every 6 hours as needed. 11/13/2021 Active lamoTRIgine 200 mg oral tablet (20 sources) Mood Stabilizer, Anti-epileptic Agent Start: 01-30-2024 End: 02-29-2024 take 1 tablet by mouth in the morning lamoTRIgine (LaMICtal) 200 MG tablet Indications: Seizure disorder (HCC) Take 1 tablet (200 mg) by mouth [...] Start: 07-27-2022 take 4 tablets by mo [facility] once daily in the morning Lamotrigine (Lamictal) [...] twice daily. LORazepam 1 mg oral tablet (10 sources) Benzodiazepine Start: 09-17-19 take 1 tablet [...] (Clinical Decision) Start: 08-18-2022 End: 09-13-2022 take 1 tablet by mouth twice daily Metformin 500 mg tablet Discontinued 500 MG PO Twice daily August 18, 2022 1:00am September 13, 2022 10:46am Start: 05-29-2021 End: 05-18-2022 take 1 tablet by mouth twice daily Metformin 500 mg tablet Discontinued 500 MG PO Twice daily May [...] nasal spray (20 sources) Benzodiazepine Start: 08-10-2023 End: 07-24-2024 Midazolam (Nayzilam) 5 MG/0.1ML solution Indications: Intractable complex partial epilepsy (HCC) Administer 1 spray into affected nostril(s) if needed (1 spray 5 mg in one nostril x1 may repeat in opposite nostril in 10 min) 6 each 2 07/24/2024 Active Start: 02-06-2023 midazolam (NAY ZILAM) 5 [...] (Nayzilam) 5 mg/sp ray (0.1 mL) spray,non-aerosol (6 sources) Start: 03-11-2023 Midazolam (Nay zilam) 5 [...] mirabegron 50 mg extended release oral tablet (12 sources) beta3-Adrenergic Agonist Start: 06-29-2024 End: 09-03-2024 take 1 tablet by mouth in the morning, then take 1 tablet by mouth every twenty-four hours mirabegron ER (Myrbetriq) 50 MG 24 hr tablet Take 50 mg by mouth in the morning. 06/29/2024 Active mirtazapine 15 mg oral tablet (4 sources) Start: 09-06-2024 take 1 tablet by mouth at bedtime mirtazapine (Remeron) 15 MG tablet Indications: Chronic insomnia Take 1 tablet (15 mg) by mouth at bedtime 30 tablet 09/06/2024 Active montelukast 10 mg oral tablet (20 sources) Leukotriene Receptor Antagonist Start: 09-27-2023 take 1 tablet by mouth at bedtime montelukast (Singulair) 10 MG tablet Take 10 mg by mouth at bedtime 09/27/2023 Active naproxen 500 mg oral tablet (20 sources) Nonsteroidal Anti-inflammatory Drug Start: 11-15-2023 take 1 tablet by mouth in the morning, then take 1 tablet by mouth at bedtime naproxen (NAPROSYN) 500 mg tablet Indications: Chronic bilateral low back pain with bilateral sciatica , Muscle spasm , Chronic bilateral low back pain, unspecified whether sciatica present , Low back pain, unspecified back pain laterality, unspecified chronicity, unspecified whether sciatica present Take 1 tablet (500 mg total) by mouth in the morning and 1 tablet (500 mg total) before bedtime. 60 tablet 3 11/15/2023 Active ondansetron 4 mg oral tablet (20 sources) Serotonin-3 Receptor Antagonist Start: 08-16-2024 take 1 tablet by mouth every eight hours as needed for nausea and vomiting ondansetron (ZOFRAN) 4 mg tablet Take 1 tablet (4 mg total) by mouth every 8 (eight) hours as needed for nausea or vomiting for up to 12 doses. 12 tablet 08/16/2024 Active Start: 12-07-2023 take 1 tablet by ketan th every eight hours as needed for nausea [...] every eight hours as needed for nausea and vomiting Ondansetron 4 mg tablet,disintegrating Active 4 MG PO Q8H as needed for nausea and vomiting May 12, 2023 1:00am pantoprazole 40 mg delayed release oral tablet (1 source) Proton Pump Inhibitor Start: 10-15-2024 take 1 tablet by mouth once daily Pantoprazole 40 mg tablet,delayed release (DR/EC) Active 40 MG PO Daily 90 October 15, 2024 12:00am phenytoin sodium 100 mg extended release oral capsule (13 sources) Anti-epileptic Agent Start: 11-03-2020 take 3 capsules by mouth once daily phenytoin ER (DILANTIN) 100 mg ER capsule Take 300 mg by mouth once daily. 11/03/2020 Active phenytoin (NITIN TIN) 100 mg ER capsule Comment on above: Take 300 mg by mouth once daily. sennosides, skilled nursing 8.6 mg oral tablet (20 sources) Start: 04-02-2024 take 2 tablets by mouth in the morning Senna-Time 8.6 MG tablet Take 2 tablets by mouth in the morning and 2 tablets before bedtime. 04/02/2024 Active sertraline 50 mg oral tablet (20 sources) Serotonin Reuptake Inhibitor Start: 12-07-2023 sertraline (ZOLOFT) 50 mg tablet Take 50 mg by mouth. 12/07/2023 Active Start: 12-04-2019 End: 12-04-2019 Sertraline (Zoloft) 25 mg Ta blet Discontinued MG TABLET December 04, 2019 12:00am December 04, 2019 3:36pm Start: 12-04-2019 End: 03-31-2021 take 1 tablet by mouth once daily Sertraline 100 mg Tablet Discontinued 100 MG PO Daily December 04, 2019 12:00am March 31, 2021 11:39am sulfacetamide sodium 100 mg/ml topical lotion (20 sources) Sulfonamide Antibacterial Start: 10-11-2023 End: 07-26-2024 Sulfacetamide Sodium, Acne, 10 % susp Apply thin layer to face once daily, 30 day supply. 10/11/2023 Active tiZANidine 4 mg oral tablet (20 sources) Central alpha-2 Adrenergic Agonist Start: 09-30-2023 take 0.5 tablet by mouth at bedtime, then take 1 tablet by mouth at bedtime tiZANidine (Zanaflex) 4 MG tablet Indications: Insomnia due to medical condition , Intractable chronic migraine without aura and without status migrainosus Take 0.5 tablets (2 mg) by mouth [...] times a day as needed. 09/20/2023 Active topiramate 25 mg oral tablet (2 sources) Start: 12-06-2024 End: 12-06-2025 take 1 tablet by mouth in the morning topiramate (Topamax) 25 MG tablet Indications: Migraine without aura and without status migrainosus, not intractable Take 1 tablet (25 mg) by mouth in the morning and 1 tablet (25 mg) before bedtime. 60 tablet 3 12/06/2024 12/06/2025 Active traZODone hydrochloride 100 mg oral tablet [...] mg total) by mouth nightly. Active tretinoin 0.5 mg/ml topical cream (12 sources) Retinoid Start: 07-26-2024 tretinoin (Ret in-A) 0.05 % cream Indications: Acne vulgaris Apply to face, once daily at evening/night time, 30 day supply 45 g 11 07/26/2024 Active Start: 05-24-2023 End: 08-10-2023 tretinoin (Retin-A) 0.025 % cream Indications: Acne vulgaris Apply a pea size amount topically to face, once daily at evening/night time, 30 day supply 20 g 2 05/24/2023 08/10/2023 Discontinued ubrogepant 100 mg oral table t (20 sources) Ubrogepant (Ubre lvy) 100 MG [...] Drug Class(es) Dates Sig (Normalized) Sig (Original) benoxinate hydrochloride 4 mg/ml / fluorescein sodium 3 mg/ml ophthalmic solution (1 source) Diagnostic Dye Start: 10-08-2024 End: 10-08-2024 fluorescein-benoxin ate 0.3-0.4 % 1 drop (FLURESS) Cenobamate (Xcopri Titration Pack) 12.5 mg (14)- 25 mg (14) tablets,dose pack (6 sources) Start: 03-11-2023 End: 04-02-2024 take 1 [...] Cephalosporin Antibacterial Start: 07-10-2021 End: 09-28-2021 take 1 capsule by mouth twice daily Cephalexin 500 mg capsule Discontinued 500 MG PO Twice daily 14 August 07, 2021 1:00am September 09, 2021 12:35pm doxycycline monohydrate 50 mg oral capsule (15 sources) Tetracycline-class Drug Start: 05-03-2024 End: 07-26-2024 take 1 capsule by mouth once daily doxycycline (Monodox) 50 MG capsule Indications: Acne vulgaris Take 1 capsule, by mouth, once daily, 30 days 30 capsule 3 05/03/2024 07/26/2024 Discontinued (Side effects) etonogestrel 68 mg drug implant (2 sources) Progestin Start: 09-19-2023 End: 09-19-2023 etonogestreL (NEXPLANON) implant 68 mg Start: 09-19-2023 End: 09-19-2023 etonogestreL (NEXPLANON) imp lant 68 mg lacosamide 100 mg oral tablet (20 sources) Anti-epileptic Agent Start: 08-18-2022 End: 09-13-2022 [...] (KEPPRA) 1000 mg/100 mL IVPB Start: 05-18-2022 End: 10-08-2024 take 2 tablets by mouth twice daily Levetiracetam (Keppra) 500 mg tablet Discontinued 1000 MG PO Twice daily May 18, 2022 1:00am October 08, 2024 9:15am Start: 05-18-2022 take 1000 mg by mout [...] 2022 11:47am Start: 03-31-2021 End: 03-30-2022 take 2 tablets by mouth twice daily Levetiracetam 500 mg tablet Discontinued 1000 MG PO Twice daily March 31, 2021 11:40am March 30, 2022 11:02am Start: 03-31-2021 End: 03-30-2022 take 1000 mg [...] 01/03/2021 Active Start: 01-02-2021 End: 03-31-2021 take 1 tablet by mouth twice daily Levetiracetam 500 mg Tablet Discontinued 500 MG PO Twice daily 60 January 02, 2021 12:00am March 31, 2021 11:40am lidocaine 0.05 mg/mg medicated patch (7 sources) Antiarrhythmic, Amide Local Anesthetic Start: 05-12-2023 End: 04-02-2024 apply 1 dose topically once daily as needed for pain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 Father Alive Sister Alive Brother Alive [facility] Documentationon 11-28-2024 Documentation [id number] Juan Jose Kovacs M 2000 F Date Provider Department Center 11/28/2024 FREDO BEJARANO NEURO Medical Pavi Family History Family Status - Relation Status Age at Mother Alive Father Alive Sister Alive Brother Alive [facility] HPon 11-28-2024 [facility] Electrophysiology Consult Note Reason for visit: event monitor from 01/2023 , palpitations 11/28/24 Pt here for EPS 10/16/24 Patient states she is here for an increase in PVC, patient has loop recorder. Patient state this month she had chest pain in the middle of her chest that radiated to her right arm. Patient states the pain went away after a few minutes. Patient states she had an EGD done yesterday due to vomiting. LOOP reveals logn NC tachycardia in 170bpm. Many episodes noted. Review of Systems Cardiovascular: Positive for chest pain and irregular heartbeat. 06/05/24 Patient here for 4 mo follow up intermittent palpitations and positional lightheadedness. C/o chest pain and SOB. C/o night sweats and having to change his shirt several times during the night. C/o fatigue. 02/07/24 Patient was recently evaluated by Jacqueline Damon after admission for near syncope and questionable seizures. She was initially admitted to [facility] and then thereafter transferred to [facility]. Reportedly he had nyvz-vo-hctl seizures while he was undergoing his physical [...] was noted on January 05, 2024 HPI: Karis Kovacs is a 24 y.o. year old with past medical history [...] to male transgender FMH- Maternal grandmother early NV- 30's, Maternal grandfather- early NV in 40's Allergies-none Home meds-Effexor and testosterone injections Per Dr. Esparza 09/23/20 HPI: 20-year-old patient with a history of seizure disorder was recently seen by Ms. Bruce for complaints of palpitations. He states that he has felt them quite often and was significantly bothered by it on August 10 that he went to [facility]. EKG that performed shows evidence of [...] history Family medical history-paternal grandfather of an NV at 46 years of age, paternal uncle CAD, sister with SVT, grandmother A. fib Social-never smoker, admits occasional alcohol about once or twice a year, daily marijuana use PMH: No past medical history on file. PSH: No past surgical history on file. SH: Social Determinants of Health Tobacco Use: Low Risk (10/16/2024) Patient History Smoking Tobacco Use: Never Smokeless Tobacco Use: Never Passive Exposure: Not on file Alcohol Use: Not At Risk (11/25/2023) Received from [employer], [employer] AUDIT[facility]C Frequency of Alcohol Consumption: Monthly or less Average Number of Drinks: 1 or 2 Frequency of Binge Drinking: Never Financial Resource Strain: Not on file Food Insecurity: No Food Insecurity (08/16/2024) Received from [employer] Hunger Screening Within the past 12 (more content not included)... [facility] Bonita 11-28-2024 PABLITO ARMSTRONG educated pt on d/ c instructions. This included: site care, limited physical activity, resume normal diet, future appointments, medications, and moderate sedation instructions. RN educated pt on when to notify physician and when to go to the hospital. RN educated pt on importance of not overusing stairs at this time and limited weight bearing of 5lbs. RN encouraged pt to voice any questions or concerns, and answered any questions or concerns if pt verbalized. Pt was wheeled off of unit with all of belongings. Normal [facility] Orders Onlyon 11-22-2024 Orders Only [id number] Juan Jose Kovacs 2000 F Date Provider Department Center 11/22/2024 [id number], HISTORICAL BH CARD [facility] Family History Family Status - Relation Status Age at Mother Alive Father Alive Sister Alive Brother Alive Normal [facility] Orders Onlyon 11-21-2024 Orders Only [id number] Juan Jose Kovacs marcia Noemy 2000 F Date Provider Department Center 11/21/2024 Sy-MAY [facility] Family History Family Status - Relation Status Age at Mother Alive Father Alive Sister Alive Brother Alive Normal [facility] NM gastric emptying studyon 11-01-2024 MT gastric emptying study [facility] [place] [address] Nuclear Medicine Report Signed Patient: Karis Kovacs MR#: [id number] : 2000 Acct:[id number] Age/Sex: 24 / F ADM Date: 11/01/24 Loc: MT Room: Type: [facility] Attending Dr: Tana Solis DO Copies to: DO Aman Winters Jr, DO Ordering Provider: Tana Solis DO Date of Service: 11/01/24 MT/MT gastric emptying study: R11.2 - Nausea with vomiting, unspecified GASTRIC EMPTYING STUDY: CLINICAL HISTORY: Abdominal pain nausea vomiting weight loss for one month TECHNIQUE: Following the oral ingestion of 1.0 mCi Tc 99m labeled sulfur colloid mixed with egg, planar imaging of the abdomen was obtained. FINDINGS: At 30 minutes, 86% of the radiotracer remained within the stomach. At 1 hour, 82% of the radiotracer remained within the stomach. At 2 hours, 77% of the radiotracer remained within the stomach. At 3 hours, 67% of the radiotracer remained within the stomach. At 4 hours, 64% of the radiotracer remained within the stomach. NM/NM gastric emptying study IMPRESSION: SCINTIGRAPHIC EVIDENCE OF GASTROPARESIS. Impression dictated by: Aman So Jr., DEstrellaOEstrella 11/01/2024 1:24 PM Dictation Location: RADIO-PC-22 Transcribed By: PWS 11/01/24 1324 Dictated By: Aman So Jr, DO 11/01/24 1322 Signed By: 11/01/24 1324 Normal [facility] Office Visiton 10-16-2024 Follow-up visit [id number] Juan Jose Kovacs 2000 F Date Provider Department Center 10/16/20[address] [facility] Family History Family Status - Relation Status Age at Mother Alive Father Alive Sister Alive Brother Alive Level of Service:42315 NC OFFICE/OUTPATIENT ESTABLISHED HIGH MDM 40 MIN Normal [facility] Pathology study report docum entOrdered By: Kavin Sanford on 10-16-2024 Pathology study [facility] Other Amphetamine Screen Ql (U)Ord ered By: Tana Soils on 10-15-2024 Amphetamines Ql (U) Amphetamines screen Negativ e [facility] Barbiturates [Presence] in U rine by Screen methodOrdered By: Tana Solis on 10-15-2024 Barbiturates Screen Ql (U) Barbiturates [Presence] in Urine by Screen method Negative [facility] Benzodiazepines Screen Ql (U )Ordered By: Tana Solis on 10-15-2024 Benzodiazepines Ql (U) Benzodiazepines [Presence] in Urine by Screen method Negative [facility] Benzoylecgonine [Presence] i n Urine by Screen methodOrdered By: Tana Solis on 10-15-2024 Benzoylecgonine Screen Ql (U) Benzoylecgonine [Presence] in Urine by Screen method Negative [facility] Cannabinoids [Presence] in U rine by Screen methodOrdered By: Tana Solis on 10-15-2024 Cannabinoids Screen Ql (U) Cannabinoids [Presence] in Urine by Screen method High Negative [facility] Comment on above: These are unconfirme d results and should not be used for legal purposes. Drug Cut-Off Concentration: AMPH 1000 ng/mL DOMINIQUE 200 ng/mL BRICE 200 ng/mL COCM 300 ng/mL OP 300 ng/mL PCP 25 ng/mL THC 20 ng/mL Drug Screen,Urineon 10-16-19 25 Amphetamine Screen,Urine Negative Normal Negative [facility] Comment on above: Performed By: #### U HCG, URDS #### [address] Barbiturate Screen,Urine Negative Normal Negative [facility] Comment on above: Performed By: #### U HCG, URDS #### [address] Benzodiazepines Screen,Urine Negative Normal Negative [facility] Comment on above: Performed By: #### U HCG, URDS #### [address] Cannabinoid Screen,Urine Positive High Negative [facility] Comment on above: Result Comment: Thes e are unconfirmed results and should not be used for legal purposes. Drug Cut-Off Concentration: AMPH 1000 ng/mL DOMINIQUE 200 ng/mL BRICE 200 ng/mL COCM 300 ng/mL OP 300 ng/mL PCP 25 ng/mL THC 20 ng/mL PERFORMED BY: [place] [address] PATHOLOGIST LINING SCRUBBER ISABELLA CALVO M.D. Performed By: #### U HCG, URDS #### [address] Cocaine Screen,Urine Negative Normal Negative [facility] Comment on above: Performed By: #### U HCG, URDS #### [place] [address] [place] Opiate Screen,Urine Negative Normal Negative [facility] Comment on above: Performed By: #### U HCG, URDS #### [address] Phencyclidine Screen,Urine Negative Normal Negative [facility] Comment on above: Performed By: #### U HCG, URDS #### [address] HCG ( test) IAcorinne d Ql (U)Ordered By: Tana Solis on 10-15-2024 HCG ( test) Ql (U) Urine human chorionic gonadotropin (hCG) detection by immunoassay [facility] HCG,Urineon 10-15-2024 Beta HCG ( test) Ql (U) Negative Normal [facility] Comment on above: Result Comment: PERF ORMED BY: [place] [address] PATHOLOGIST LINING SCRUBBER ISABELLA CALVO M.D. Performed By: #### U HCG, URDS #### [address] Basim 10-15-2024 L ----- Specimen: [id number] Received: 10/15/24 Status: LACY Yang Num: [id number] Spec Type: Surgical Subm Dr: Tana Solis DO Tissues: A Small Intestine - Biopsy/Polyp (SMALL BOWEL BX) B Gastric Biopsy (GASTRIC BX) Procedures: HE/4, Gross/Micro L4/2, H PYLORI Age/ Patient Sex Location Account Attending Physician Karis Kovacs /F [id number] Tana Solis, DO SPEC NUM: [id number] RECD: 10/15/24 STATUS: LACY YANG NUM: [id number] GRICELDA: 10/15/[address] [facility] [address]: Tana Solis DO ENTERED: 10/15/24 [facility] DR: BESSY TYPE: Surgical DEPT: S ENTERED BY: [id number] RECV BY: [id number] ORDERED: HE/4, Gross/Micro L4/2, H PYLORI ORDERED: HE/4, Gross/Micro L4/2, H PYLORI Pathological Diagnosis A. ?Duodenum (mucosal biopsies): ? Within normal limits ? No features of celiac disease or dysplasia seen B.? Stomach (mucosal biopsies): ? Reactive gastropathy, mild ? No Helicobacter pylori, intestinal metaplasia, or dysplasia seen? See microscopic description Clinical Information Nausea vomiting, Part A rule out celiac, Part B rule out H. pylori Gross Description Part A is received in formalin labeled with the patients name, date of , and Sm bowel BX are 2 tian-dominguez, focally erythematous, friable, 0.2 and 0.3 cm in greatest dimension tissue bits. The specimen is entirely submitted in a single cassette. (1, ns, A) JG Part B is received in formalin labeled with the patients name, date of , and gastric BX is a tian-dominguez, focally erythematous, friable, 0.4 cm in greatest dimension tissue bit. The specimen is entirely submitted in a single cassette. (1, ns, B) JG Specimen: Received: 10/15/24 Status: LACY Rinconluna Num: [id number] Spec Type: Surgical Subm Dr: Tana Solis DO Tissues: A Small Intestine - Biopsy/Polyp (SMALL BOWEL BX) B Gastric Biopsy (GASTRIC BX) Procedures: HE/4, Gross/Micro L4/2, H PYLORI Patient: Karis Kovacs [id number] (Continued) Specimen: Received: 10/15/24 (Continued) Signed (signature on file) Kavin Sanford Jr., MD 10/16/24 1618 Specimen: Received: 10/15/24 Status: LACY Yang Num: [id number] Spec Type: Surgical Subm Dr: Tana Soils DO Tissues: A Small Intestine - Biopsy/Polyp (SMALL BOWEL BX) B Gastric Biopsy (GASTRIC BX) Procedures: HE/Kashif, Gross/Micro L4/2, H PYLORI Patient: Karis Kovacs [id number] (Continued) Specimen: Received: 10/15/24 (Continued) Microscopic Description B. Immunoperoxidase stain performed on formalin fixed and paraffin-embedded tissue sections (block B1) for Helicobacter pylori organisms is negative.? The control stains appropriately. CPT Codes 93334 x 2, 73013 Specimen: [id number] Received: 10/15/24 Status: LACY [place] Num: [id number] Spec Type: Surgical Subm Dr: Tana Solis DO Tissues: A Small Intestine - Biopsy/Polyp (SMALL BOWEL BX) B Gastric Biopsy (GASTRIC BX) Procedures: HE/4, Gross/Micro L4/2, H PYLORI Patient: Karis Koavcs [id number] (Continued) Signed (signature on file) Kavin Sanford Jr., MD 10/16/24 4888 Normal [facility] Opiates [Presence] in Urine by Screen methodOrdered By: Tana Solis on 10-15-2024 Opiates Screen Ql (U) Opiates [Presence] in Urine by Screen method Negative [facility] Phencyclidine Screen Ql (U)O rdered By: Tana Solis on 10-15-2024 Phencyclidine Ql (U) Phencyclidine [Pres ence] in Urine by Screen method Negative [facility] Measure post void residualon 09-03-2024 Volume 14ml [facility] POCT Urinalysis Auto, W/O Mi croscopyon 09-03-2024 External Poct Urine Blood Negative [facility] External Poct Urine Glucose Negative [facility] External Poct Urine Ketones Negative [facility] External Poct Urine Leukocyte Esterase Negative [facility] External Poct Urine Nitrite Negative [facility] External Poct Urine Ph 8 Pr [facility] External Poct Urine Protein Negative [facility] Outside Recordson 08-20-2024 Outside Records [id number]#1.00OTGT IFF [facility] Progress Note - Nurseon 07-28 Progress Note - Nurse Gave 25mg of Prome thazine into patients Right Gluteus Karan intramuscularly. Patient tolerated well. No adverse reactions. Dr. French education patient on medication before given. [Electronically Signed on: 08/09/2024 15:23 EST] Ekta Olsen MA [Verified on: 08/09/2024 15:23 EST] Ekta Olsen MA [facility] URINE CULTUREon 08-08-2024 Bacteria identified Cx Nom (U) CULTURE RESULTS <10,000 ORGANISMS/ML NORMAL URO GENITAL ZANDER Normal [facility] Comment on above: Performed By: #### 1 9123-9, [facility], 5643-2, CBCA #### [facility] ([id number]) [address] [facility], [place] [address] [facility] ----- BETHANIEKARIS M ([id number]) 2 F Date Time Provider Department 08/01/24 GALE BASSETT [facility] During your visit today, we recorded the following information about you: Karo Slater 08/01/2024 9:52 AM Signed Found on the End[facility] for Earline Bassett: Pt, IS REQUESTING PROVIDER TO PLACE [facility] FOR SPEECH THERAPY. No other information was given. Please advise. Gale Bassett, ROSA.[facility] 08/01/2024 11:36 AM Signed PCP is to contact for this referral Karo Slater 08/01/2024 1:00 PM Signed Sent a MyChart to this patient advising him to contact his PCP Allergies As of Date: 08/01/2024 Noted Allergy Reaction CODEINE 07/17/2017 4 - Hives 9 - Itching Date Reviewed: 04/16/2024 Reviewed by: Jessi Sanford MA - Fully Assessed Prescriptions as of 08/01/2024 - erenumab-aooe 140 mg/mL subcutaneous auto-injector (AIMOVIG) [...] tablet Take 1 tablet by mouth. - lamoTRIgine (LAMICTAL) 25 mg tablet Take [...] SQ Q2wks Problem List As Of Date 08/01/2024 Noted Resolved Social anxiety disorder [F40.10] 09/04/2018 [...] 08/31/2018 Encounter Status:Closed by KARO SLATER on 08/01/24 Normal [facility] URINE CULTUREon 07-20-2024 Bacteria identified Cx Nom (U) CULTURE RESULTS <10,000 ORGANISMS/ML NORMAL URO GENITAL ZANDER Normal [facility] Comment on above: Performed By: #### 1 9123-9, [facility], 5643-2, CBCA #### [facility] ([id number]) [address] [place] [address], [place] [address] US RETROPERITONEAL COMPLETEo n 07-04-2024 US RETROPERITONEAL [...] Marcum MD on 07/04/2024 10:23 AM Normal [facility] POCT Urinalysis Auto, W/O Mi croscopyon 06-29-2024 External Poct Urine Blood Trace [facility] External Poct Urine Glucose Negative [facility] External Poct Urine Ketones Negative [facility] External Poct Urine Leukocyte Esterase Negative [facility] External Poct Urine Nitrite Negative [facility] External Poct Urine Ph 8.5 Pr [facility] External Poct Urine Protein Negative [facility] Outside Recordson 06-28-2024 Outside Records [id number]#1.00OTGTI [facility] Rad - Other Radiology Report on 06-28-2024 Rad - Other Radiology Report [id number]#1.00OTGTI [facility] CNPNon 06-18-2024 CNPN Telephone ([facility]) ----- KARIS KOVACS ([id number]) 2 F Date Time Provider Department 06/18/24 GALE BASSETT [facility] During your visit today, we recorded the following information about you: Karo Slater 06/18/2024 3:17 PM Signed Pt is scheduled on 07/27/24 and added to [facility] Allergies As of Date: 06/18/2024 Noted Allergy Reaction CODEINE 07/17/2017 4 - Hives 9 - Itching Date Reviewed: 04/16/2024 Reviewed by: Jessi Sanford MA - Fully Assessed Prescriptions as [...] Encounter Status:Closed by KARO SLATER on 06/18/24 Normal [facility] Office Visiton 06-05-2024 Follow-up visit [id number] Juan Jose Kovacs 2000 F Date Provider Department Center 06/05/2024 [facility] ESPARZA [facility] No family history on file Level of Service:16621 [place] OFFICE/OUTPATIENT ESTABLISHED LOW MDM 20 MIN Normal [facility] CNPNon 05-18-2024 CNPN Telephone ([facility]) ----- KARIS KOVACS ([id number]) 2 F Date Time Provider Department 05/18/24 GALE BASSETT [facility] During your visit today, we recorded the following information about you: Jaqueline Coronado RN 05/18/2024 2:18 PM Signed Pt calls Seen 04-16-2024 Ov notes reviewed Asking if provider would like pt to stay on dexcom 7 He has applied the last disk to his arm Pharm on dial Ddm/ dandre [place] Jessi Sanford MA 05/18/2024 3:36 PM Signed Full Dexcom report printed and placed on providers desk for review. Gale Bassett, ROSA.[employer] CLEANING TECHNICIAN 05/18/2024 4:24 PM Signed Please discontinue metformin and come in for 2 more sensors - to see how you do off of the medication Jessi Sanford MA 05/18/2024 4:35 PM Signed Called and informed pt of below message. Placed sensors at Desk C for lease picker. Jessi Sanford MA Allergies As of Date: 05/18/2024 Noted Allergy Reaction CODEINE 07/17/2017 4 - Hives 9 - Itching Date Reviewed: 04/16/2024 Reviewed by: Jessi Sanford MA - Fully Assessed Reason for [...] Sleep difficulties [G47.9] 08/31/2018 Encounter Status:Closed by JESSI SANFORD on 05/18/24 Normal [facility] 25(OH)D3 [facility] 2023 25-hydroxyvitamin D3 [Mass/Vol] 23.8 ng/mL Low 31.0-80.0 [facility] Comment on above: Order Comment: Speci men Type: BLOOD SPECIMEN Ordering Facility: [facility] Address: [address] [place] [address] Result Comment: Clas sification of 25 [place] Vitamin D status: Deficiency/Insufficiency: < or = 30 ng/ml. Sufficiency/Optimal Levels: 31-80 ng/mL Toxicity: > 100 ng/mL. Test performed by chemiluminescent immunoassay. Performed By: #### 1 989-3 #### [facility] CLIA [id number] [address] [place] [address] [place] ALBUMIN/CREATININE RATIO, UR INEon 05-11-2024 Albumin DL <= 20 mg/L (U) [Mass/Vol] mg/dL Normal [facility] Comment on above: Order Comment: Speci men Type: URINE SPECIMEN Ordering Facility: [facility] Address: [address] [place] [address] Performed By: #### U ACR #### [facility] CLIA [id number] [address] [place] [address] [place] Albumin/Creatinine (U) [Mass ratio] <13 Normal <30 [facility] Comment on above: Order Comment: Speci men Type: URINE SPECIMEN Ordering Facility: [facility] Address: [address] [place] [address] Result Comment: Adul t Male and Female Nephrotic Criteria: <30 mg/g is considered normal to mildly increased 30-300 mg/g is considered moderately increased >300 mg/g is considered severely increased KDIGO. (2013). KDIGO 2012 Clinical Practice Guideline for the Evaluation and Management of Chronic Kidney Disease. Official Journal of the International Society of Nephrology, 3(1), 1-150. Performed By: #### U ACR #### [facility] CLIA [id number] [address] [place] [address] [place] Creatinine (U) [Mass/Vol] 94.6 mg/dL Normal 20.0-300.0 [facility] Comment on above: Order Comment: Speci men Type: URINE SPECIMEN Ordering Facility: [facility] Address: [address] [place] [address] Performed By: #### U ACR #### [facility] CLIA [id number] [address] [place] [address] [place] C peptide SerPl-ncon 05-11 C peptide [Mass/Vol] 1.7 ng/mL Normal 1.1-4.4 [facility] Comment on above: Order Comment: Janet white Type: BLOOD SPECIMEN Ordering Facility: [facility] Address: [address] [place] [address] Performed By: #### 2 132-9, 2731-8, 3016-3 #### [facility] CLIA [id number] [address] [place] [address] [place] GAD65 Ab Ser-aCncon 05-11-20 24 Glutamate decarboxylase 65 Ab Qn (S) <5.0 Normal <=5.0 [facility] Comment on above: Order Comment: Janet white Type: BLOOD SPECIMEN Ordering Facility: [facility] Address: [address] [place] [address] Result Comment: Anti -glutamic acid decarboxylase antibody [...] Clinical correlation is required. Performed By: #### 2 132-9, 2731-8, 3016-3 #### [facility] CLIA [id number] [address] [place] [address] [place] Glucose p fast SerPl-mCncon 05-11-2024 Glucose post fast [Mass/Vol] 78 mg/dL Normal 74-99 [facility] Comment on above: Order Comment: Janet white Type: BLOOD SPECIMEN Ordering Facility: [facility] Address: [address] [place] [address] Result Comment: [place] Diabetes Association guidelines state that a diabetes mellitus diagnosis is preliminarily made when the fasting plasma glucose meets or exceeds 126 mg/dL. In the absence of unequivocal hyperglycemia, results should be confirmed with repeat testing. Patients are at increased risk for diabetes mellitus (prediabetes) when the fasting glucose is 100 to 125 mg/dL. Performed By: #### 2 132-9, 2731-8, 6-3 #### [facility] CLIA [id number] [address] [place] [address] [place] Glutamate decarboxylase 65 A b Qn (S)on 05-11-2024 GLUTAMIC ACID DECARBOXYLAS AB QUALITATIVE Negative Normal Negative [facility] Comment on above: Order Comment: Janet white Type: BLOOD SPECIMEN Ordering Facility: [facility] Address: [address] [place] [address] Performed By: #### 2 132-9, 2731-8, 6-3 #### [facility] CLIA [id number] [address] [place] [address] [place] Insulin SerPl-aCncon 024 Insulin Qn 3.3 u[IU]/mL Normal 3.0-25.0 [facility] Comment on above: Order Comment: Janet white Type: BLOOD SPECIMEN Ordering Facility: [facility] Address: [address] [place] [address] Performed By: #### 2 132-9, 2731-8, 3016-3 #### [facility] CLIA [id number] [address] [place] [address] [place] [facility] Parathyrin.intact [Mass/Vol] 21 pg/mL Normal 15-65 [facility] Comment on above: Order Comment: Speci men Type: BLOOD SPECIMEN Ordering Facility: [facility] Address: [address] [place] [address] Performed By: #### 2 132-9, 2731-8, 3016-3 #### [facility] CLIA [id number] [address] [place] [address] [place] Renal function 2000 panelon 05-11-2024 Albumin [Mass/Vol] 4.6 g/dL Normal 3.9-4.9 [facility] Comment on above: Order Comment: Speci men Type: BLOOD SPECIMEN Ordering Facility: [facility] Address: [address] [place] [address] Performed By: #### 2 132-9, 2731-8, 6-3 #### [facility] CLIA [id number] [address] [place] [address] [place] Anion gap [Moles/Vol] 10 mmol/L Normal 8-15 [facility] Comment on above: Order Comment: Speci men Type: BLOOD SPECIMEN Ordering Facility: [facility] Address: [address] [place] [address] Performed By: #### 2 132-9, 2731-8, 3016-3 #### [facility] CLIA [id number] [address] [place] [address] [place] Calcium [Mass/Vol] 9.6 mg/dL Normal 8.5-10.2 [facility] Comment on above: Order Comment: Speci men Type: BLOOD SPECIMEN Ordering Facility: [facility] Address: [address] [place] [address] Performed By: #### 2 132-9, 2731-8, 3016-3 #### [facility] CLIA [id number] [address] [place] [address] [place] Chloride [Moles/Vol] 101 mmol/L Normal 98-107 [facility] Comment on above: Order Comment: Speci men Type: BLOOD SPECIMEN Ordering Facility: [facility] Address: [address] [place] [address] Performed By: #### 2 132-9, 2731-8, 3016-3 #### [facility] CLIA [id number] [address] [place] [address] [place] CO2 [Moles/Vol] 21 mmol/L Low 22-30 [facility] Comment on above: Order Comment: Speci men Type: BLOOD SPECIMEN Ordering Facility: [facility] Address: [address] [place] [address] Performed By: #### 2 132-9, 2731-8, 6-3 #### [facility] CLIA [id number] [address] [place] [address] [place] Creatinine [Mass/Vol] 0.75 mg/dL Normal 0.73-1.22 [facility] Comment on above: Order Comment: Speci men Type: BLOOD SPECIMEN Ordering Facility: [facility] Address: [address] [place] [address] Performed By: #### 2 132-9, 2731-8, 3016-3 #### [facility] CLIA [id number] [address] [place] [address] [place] Creatinine and Glomerular filtration rate.predicted panel (S/P/Bld) 116 mL/min/1.73m??? Normal >=60 [facility] Comment on above: Order Comment: Speci men Type: BLOOD SPECIMEN Ordering Facility: [facility] Address: [address] [place] [address] Result Comment: Carla mated Glomerular Filtration Rate [...] accurately reflect actual GFR. Performed By: #### 2 132-9, 2731-8, 6-3 #### [facility] CLIA [id number] [address] [place] [address] [place] Glucose [Mass/Vol] 86 mg/dL Normal 74-99 [facility] Comment on above: Order Comment: Janet white Type: BLOOD SPECIMEN Ordering Facility: [facility] Address: [address] [place] [address] Result Comment: The [place] Diabetes Association (ADA) provides guidance for cutoff [...] Standards of Medical Care in Diabetes 2016, [place] Diabetes Association. Diabetes Care. 2016.39(Suppl 1). Performed By: #### 2 132-9, 2730-8, 3015-3 #### [facility] CLIA [id number] [address] [place] [address] [place] Phosphate [Mass/Vol] 4.2 mg/dL Normal [facility] Comment on above: Order Comment: Janet white Type: BLOOD SPECIMEN Ordering Facility: [facility] Address: [address] [place] [address] Performed By: #### 2 132-9, 2731-8, 6-3 #### [facility] CLIA [id number] [address] [place] [address] [place] Potassium [Moles/Vol] 4.4 mmol/L Normal 3.7-5.1 [facility] Comment on above: Order Comment: Speci men Type: BLOOD SPECIMEN Ordering Facility: [facility] Address: [address] [place] [address] Performed By: #### 2 132-9, 2731-8, 3016-3 #### [facility] CLIA [id number] [address] [place] [address] [place] Sodium [Moles/Vol] 132 mmol/L Low 136-144 [facility] Comment on above: Order Comment: Speci men Type: BLOOD SPECIMEN Ordering Facility: [facility] Address: [address] [place] [address] Performed By: #### 2 132-9, 2731-8, 3016-3 #### [facility] CLIA [id number] [address] [place] [address] [place] Urea nitrogen [Mass/Vol] 12 mg/dL Normal 7-21 [facility] Comment on above: Order Comment: Speci men Type: BLOOD SPECIMEN Ordering Facility: [facility] Address: [address] [place] [address] Performed By: #### 2 132-9, 2731-8, 3016-3 #### [facility] CLIA [id number] [address] [place] [address] [place] TSH SerPl-aCncon 05-11-2024 TSH Qn 0.652 m[IU]/L Normal 0.270-4.20 0 [facility] Comment on above: Order Comment: Speci men Type: BLOOD SPECIMEN Ordering Facility: [facility] Address: [address] [place] [address] Performed By: #### 2 132-9, 2731-8, 3016-3 #### [facility] CLIA [id number] [address] [place] [address] [place] Vit B12 [facility] 11-15-2 024 Cobalamin (Vitamin B12) [Mass/Vol] 314 pg/mL Normal 232-1245 [facility] Comment on above: Order Comment: Speci men Type: BLOOD SPECIMEN Ordering Facility: [facility] Address: [address] [place] [address] Performed By: #### 2 132-9, 2731-8, 3016-3 #### [facility] CLIA [id number] [address] [place] [address] [place] CNOVon 04-16-2024 CNOV Office Visit (ENDOCC ) ----- KARIS KOVACS ([id number]) 2 F Date Time Provider Department 04/16/24 3:00 PM [facility] During your visit today, we recorded the following information about you: Pulse Blood pressure Weight Height 83/minute 120/78 43.2 kg 1.575 m Gale Bassett, LABORATORY MONITOR.INDUSTRIAL CLEANING TECHNICIAN 04/16/2024 4:59 PM Signed Endocrinology Initial Diabetes Assessment Karis Kovacs is here for a consultation regarding: Diabetes My final recommendations will be communicated back to the requesting physician by way of shared Medical record or letter to requesting physician via [place] mail. PCP is Kavin French Sr, DO Kavin French Sr [address] [place] [address] Subjective History of Present Illness Karis Kovacs is a 23 year old adult [...] as above Physical Activity: Physically active with [employer] boarding Diet: Breakfast: cereal - Krave with [...] [facility]Q [facility] [place] and Syringes lamoTRIgine (LAMICTAL) 25 mg tablet Take 100 mg by mouth twice daily. Anticonvulsant - Phenyltriazine Derivatives LORazepam (ATIVAN) 1 mg tablet Take 1 mg by mouth q 12 HR. Antianxiety Agent - Benzodiazepines Needle, Disp, 18 G (BD DISPOSABLE NEEDLES) 18 gauge x 1 ndle For use to withdraw testosterone [facility] [place] [facility] Syringes Needle, Disp, 23 G 23 gauge x 3/4 ndle For use with testosterone administration SQ [facility] [place] and Syringes phenytoin ER (DILANTIN) 100 mg [...] History Toba (more content not included)... Normal [facility] HEMOGLOBIN A1C (POC)on 04-16 HbA1c (Bld) [Mass fraction] 5.3 % 4.3 - 5.6 % [facility] Comment on above: Location:[facility], [address] [place] [address] [place], [place], [address] Point of care (POC) Hemoglobin A1c (HGBA1C) [...] specific diabetes management situations: The POC device precipitator supervisor provides a normal range of 4.2% to 6.5% for the HGBA1C POC test. However, the [place] Diabetes Association guidelines indicate that patients with [...] anemia) that alter red blood cell lifespan. [facility] 36on 02-17-2024 36 Patient called and w ants to know if he's able to drive. He said he was cleared to drive per neurology- but I think neurology is saying his issues are cardiac related. What do you want me to tell him? Normal [facility] Telephoneon 02-17-2024 Telephone [id number] Juan Jose Kovacs [address] [facility] Provider Department [place] 02/17/2024 ROSALINE ARIAS EMANI [facility] No family history on file Normal [facility] Office Visiton 02-07-2024 Follow-up visit [id number] Juan Jose Kovacs [address] [facility] Department [place] 02/07/2024 JOJO AMADO [facility]MAN[facility] No family history on file Level of Service:51882 NC OFFICE/OUTPATIENT ESTABLISHED LOW MDM 20 MIN Normal [facility] ED Note - Provideron 024 ED Note - Provider [id number] FF [facility] CBC AND AUTO DIFFon 02-04-20 24 ABSOLUTE BASOPHIL 0.0 X10E9/L Normal 0.0-0.2 [facility] Comment on above: Performed By: #### 3 2133-1, CBCA, CMP, 6948-4 #### [facility] ([id number]) [address] [place] [address], [place] [address] ABSOLUTE NEUTROPHIL 7.1 X10E9/L High 1.5-6.6 [facility] Comment on above: Performed By: #### 3 2133-1, CBCA, CMP, 6948-4 #### [facility] ([id number]) [address] [place] [address] Basophils/100 WBC (Bld) 0.4 % Normal [facility] Comment on above: Performed By: #### 3 2132-, CBCA, CMP, 48-4 #### [facility] ([id number]) [address] [place] [address] Eosinophils (Bld) [#/Vol] 0.0 10*3/uL Normal 0.0-0.4 [facility] Comment on above: Performed By: #### 3 2132-1, CBCA, CMP, 48-4 #### [facility] ([id number]) [address] [place] [address] Eosinophils/100 WBC (Bld) 0.1 % Normal [facility] Comment on above: Performed By: #### 3 2132-06, CBCA, CMP, 48-4 #### [facility] ([id number]) [address] [place] [address] Erythrocyte distribution width (RBC) [Ratio] 15.0 % Normal 11.5-15.0 [facility] Comment on above: Performed By: #### 3 2132-06, CBCA, CMP, 48-4 #### [facility] ([id number]) [address] [place] [address] Hematocrit (Bld) [Volume fraction] 39.8 % Normal 35-47 [facility] Comment on above: Performed By: #### 3 2132-06, CBCA, CMP, 48-4 #### [facility] ([id number]) [address] [place] [address] Hemoglobin (Bld) [Mass/Vol] 13.4 g/dL Normal 11.7-15.5 [facility] Comment on above: Performed By: #### 3 2132-, CBCA, CMP, 48-4 #### [facility] ([id number]) [address] [place] [address] Lymphocytes (Bld) [#/Vol] 2.1 10*3/uL Normal 1.0-3.5 [facility] Comment on above: Performed By: #### 3 2132-, CBCA, CMP, 48-4 #### [facility] ([id number]) [address] [place] [address] Lymphocytes/100 WBC (Bld) 21.1 % Normal [facility] Comment on above: Performed By: #### 3 2132-, CBCA, CMP, 48-4 #### [facility] ([id number]) [address] [place] [address] MCH (RBC) [Entitic mass] 29.9 pg Normal 27-34 [facility] Comment on above: Performed By: #### 3 2132-06, CBCA, CMP, 48- #### [facility] ([id number]) [address] [place] [address] MCHC (RBC) [Mass/Vol] 33.5 g/dL Normal 32-36 [facility] Comment on above: Performed By: #### 3 2132-06, CBCA, CMP, 48-4 #### [facility] ([id number]) [address] [place] [address] MCV (RBC) [Entitic vol] 89 fL Normal 80-100 [facility] Comment on above: Performed By: #### 3 2132-06, CBCA, CMP, 6948- #### [facility] ([id number]) [address] [place] [address] Monocytes (Bld) [#/Vol] 0.7 10*3/uL Normal 0-0.9 [facility] Comment on above: Performed By: #### 3 2132-, CBCA, CMP, 48-4 #### [facility] ([id number]) [address] [place] [address] Monocytes/100 WBC (Bld) 7.5 % Normal [facility] Comment on above: Performed By: #### 3 2132-, CBCA, CMP, 6948-4 #### [facility] ([id number]) [address] [place] [address] Neutrophils/100 WBC (Bld) 70.9 % Normal [facility] Comment on above: Performed By: #### 3 2132-, CBCA, CMP, 6948-4 #### [facility] ([id number]) [address] [place] [address] Platelet mean volume (Bld) [Entitic vol] 7.4 fL Normal 7-12 [facility] Comment on above: Performed By: #### 3 2132-, CBCA, CMP, 6948-4 #### [facility] ([id number]) [address] [place] [address] Platelets (Bld) [#/Vol] 287 10*3/uL Normal 150-450 [facility] Comment on above: Performed By: #### 3 2132-06, CBCA, CMP, 6948-4 #### [facility] ([id number]) [address] [place] [address] RBC COUNT 4.46 X10E12/L Normal 3.80-5.20 [facility] Comment on above: Performed By: #### 3 2132-, CBCA, CMP, 6948-4 #### [facility] ([id number]) [address] [place] [address] WBC (Bld) [#/Vol] 10.0 10*3/uL Normal 4.0-11.0 [facility] Comment on above: Performed By: #### 3 2132-1, CBCA, CMP, 6948-4 #### [facility] ([id number]) [address] [place] [address] COMPREHENSIVE METABOLIC PANE Basim 02-04-2024 Albumin [Mass/Vol] 4.7 g/dL Normal 3.2-5.3 [facility] Comment on above: Performed By: #### 3 2132-1, CBCA, CMP, 6948-4 #### [facility] ([id number]) [address] [place] [address] ALP [Catalytic activity/Vol] 50 U/L Normal 39-130 [facility] Comment on above: Performed By: #### 3 2132-1, CBCA, CMP, 6948-4 #### [facility] ([id number]) [address] [place] [address] 97096 ALT [Catalytic activity/Vol] 13 U/L Normal 0-31 [facility] Comment on above: Performed By: #### 3 2132-1, CBCA, CMP, 6948-4 #### [facility] ([id number]) [address] [place] [address] Anion gap [Moles/Vol] 9 mmol/L Normal 5-15 [facility] Comment on above: Performed By: #### 3 2132-1, CBCA, CMP, 6948-4 #### [facility] ([id number]) [address] [place] [address] 12649 AST [Catalytic activity/Vol] 17 U/L Normal 0-41 [facility] Comment on above: Performed By: #### 3 2132-1, CBCA, CMP, 6948-4 #### [facility] ([id number]) [address] [place] [address] 85628 Bilirubin [Mass/Vol] 0.4 mg/dL Normal 0.3-1.2 [facility] Comment on above: Performed By: #### 3 2132-1, CBCA, CMP, 6948-4 #### [facility] ([id number]) [address] [place] [address] Calcium [Mass/Vol] 9.1 mg/dL Normal 8.5-10.5 [facility] Comment on above: Performed By: #### 3 2132-1, CBCA, CMP, 6948-4 #### [facility] ([id number]) [address] [place] [address]98[address] Chloride [Moles/Vol] 103 mmol/L Normal 98-109 [facility] Comment on above: Performed By: #### 3 2132-1, CBCA, CMP, 6948-4 #### [facility] ([id number]) [address] [place] [address]36 CO2 [Moles/Vol] 26 mmol/L Normal 22-32 [facility] Comment on above: Performed By: #### 3 2132-1, CBCA, CMP, 6948-4 #### [facility] ([id number]) [address] [place] [address] 92416 Creatinine [Mass/Vol] 0.88 mg/dL Normal 0.40-1.00 [facility] Comment on above: Result Comment: METH OD TRACEABLE TO IDMS STANDARD Performed By: #### 3 2132-1, CBCA, CMP, 6948-4 #### [facility] ([id number]) [address] [place] [address] 65917 eGFR (CKD-EPI) NON-RACE DEPENDENT >90 Normal >59 [facility] Comment on above: Result Comment: Reported eGFR is based on the CKD-EPI 2020 equation that does not use a race coefficient. Performed By: #### 3 2132-1, CBCA, CMP, 6948-4 #### [facility] ([id number]) [address] [place] [address] 46640 Glucose [Mass/Vol] 95 mg/dL Normal 65-99 [facility] Comment on above: Performed By: #### 3 2132-1, CBCA, CMP, 6948-4 #### [facility] ([id number]) [address] [place] [address] 51034 Potassium [Moles/Vol] 3.5 mmol/L Normal 3.5-5.0 [facility] Comment on above: Performed By: #### 3 2132-1, CBCA, CMP, 6948-4 #### [facility] ([id number]) [address] [place] [address] 13243 Protein [Mass/Vol] 7.9 g/dL Normal 6.0-8.0 [facility] Comment on above: Performed By: #### 3 2132-1, CBCA, CMP, 6948-4 #### [facility] ([id number]) [address] [place] [address] 63254 Sodium [Moles/Vol] 138 mmol/L Normal 134-146 [facility] Comment on above: Performed By: #### 3 2132-1, CBCA, CMP, 6948-4 #### [facility] ([id number]) [address] [place] [address] 55772 Urea nitrogen [Mass/Vol] 10 mg/dL Normal 5-23 [facility] Comment on above: Performed By: #### 3 2132-1, CBCA, CMP, 6948-4 #### [facility] ([id number]) [address] [place] [address] BRAIN WO CONTon 4 CT BRAIN [...] Karyna Gay DO on 02/04/2024 10:25 PM Nahum Osorio MD have personally reviewed the image(s) and agree with and/or edited the report Finalized by Nahum Lobo MD on 02/04/2024 10:47 PM Normal [facility] CT CERVICAL SPINE WO CONTon 02-04-2024 [...] Lobo MD on 02/04/2024 10:48 PM Normal [facility] Lactate (P miguelina) [Moles/Vol]o n 02-04-2024 LACTATE W/REFLEX 1.3 mmol/L Normal 0.4-2.0 [facility] Comment on above: Result Comment: Result did not trigger repeat Lactate, re-order if needed. Performed By: #### 3 2133-1, CBCA, CMP, 6948-4 #### [facility] ([id number]) [address] [place] [id number] lamoTRIgine [Mass/Vol]on Lamotrigine, S 13.0 mcg/mL Normal 3.0-15.0 [facility] Comment on above: Result Comment: NOTE ADDITIONAL INFORMATION This test was developed and its performance characteristics determined by [facility] in a manner consistent with CLIA requirements. This test has not been cleared or approved by the [place] Food and Drug Administration. Test Performed by: [facility] [address] [place] [address] Speech And Hearing Clinic Director: Viridiana Pierson Ph.D.; CLIA# [id number] Performed By: #### 3 2133-1, CBCA, CMP, 6948-4 #### [facility] ([id number]) [address] [place] [address] 93165 MR LUMBAR SPINE WO CONTon MR LUMBAR [...] Nahun Henson on 01/24/2024 12:59 PM Normal [facility] Outside Recordson 01-13-2024 Outside Records [id number]#[id number] F Normal [facility] CBC AND AUTO DIFFon 01-06-20 ABSOLUTE BASOPHIL 0.1 X10E9/L Normal 0.0-0.2 [facility] Comment on above: Performed By: #### 1 9123-9, CMP, 5643-2, CBCA #### [facility] ([id number]) [address] [place] [address] 84512 ABSOLUTE NEUTROPHIL 7.0 X10E9/L High 1.5-6.6 [facility] Comment on above: Performed By: #### 1 9123-9, CMP, 5643-2, CBCA #### [facility] ([id number]) [address] [place] [address] 40960 Basophils/100 WBC (Bld) 0.7 % Normal [facility] Comment on above: Performed By: #### 1 9123-9, CMP, 5643-2, CBCA #### [facility] ([id number]) [address] [place] [address] 87577 Eosinophils (Bld) [#/Vol] 0.0 10*3/uL Normal 0.0-0.4 [facility] Comment on above: Performed By: #### 1 9123-9, [facility], 5643-2, CBCA #### [facility] ([id number]) [address] [place] [address] 73620 Eosinophils/100 WBC (Bld) 0.3 % Normal [facility] Comment on above: Performed By: #### 1 91-9, [facility], 5643-2, CBCA #### [facility] ([id number]) [address] [place] [address] 41443 Erythrocyte distribution width (RBC) [Ratio] 15.4 % High 11.5-15.0 [facility] Comment on above: Performed By: #### 1 91-9, [facility], 5643-2, CBCA #### [facility] ([id number]) [address] [place] [address] 07438 Hematocrit (Bld) [Volume fraction] 40.7 % Normal 35-47 [facility] Comment on above: Performed By: #### 1 91-9, [facility], 5643-2, CBCA #### [facility] ([id number]) [address] [place] [address] 24562 Hemoglobin (Bld) [Mass/Vol] 13.6 g/dL Normal 11.7-15.5 [facility] Comment on above: Performed By: #### 1 91-9, [facility], 5643-2, CBCA #### [facility] ([id number]) [address] [place] [address] 57089 Lymphocytes (Bld) [#/Vol] 2.3 10*3/uL Normal 1.0-3.5 [facility] Comment on above: Performed By: #### 1 9123-9, [facility], 5643-2, CBCA #### [facility] ([id number]) [address] [place] [address] 76002 Lymphocytes/100 WBC (Bld) 23.0 % Normal [facility] Comment on above: Performed By: #### 1 9123-9, CMP, 5643-2, CBCA #### [facility] ([id number]) [address] [place] [address] 32707 MCH (RBC) [Entitic mass] 29.2 pg Normal 27-34 [facility] Comment on above: Performed By: #### 1 9122-9, CMP, 5643-2, CBCA #### [facility] ([id number]) [address] [place] [address] 84824 MCHC (RBC) [Mass/Vol] 33.4 g/dL Normal 32-36 [facility] Comment on above: Performed By: #### 1 91-9, CMP, 5643-2, CBCA #### [facility] ([id number]) [address] [place] [address] 44535 MCV (RBC) [Entitic vol] 87 fL Normal 80-100 [facility] Comment on above: Performed By: #### 1 91-9, JERICHO, 5643-2, CBCA #### [facility] ([id number]) [address] [place] [address] 10038 Monocytes (Bld) [#/Vol] 0.8 10*3/uL Normal 0-0.9 [facility] Comment on above: Performed By: #### 1 91-9, CMP, 5643-2, CBCA #### [facility] ([id number]) [address] [place] [address] 70970 Monocytes/100 WBC (Bld) 7.8 % Normal [facility] Comment on above: Performed By: #### 1 91-9, CMP, 5643-2, CBCA #### [facility] ([id number]) [address] [place] [address] 89202 Neutrophils/100 WBC (Bld) 68.2 % Normal [facility] Comment on above: Performed By: #### 1 9123-9, CMP, 5643-2, CBCA #### [facility] ([id number]) [address] [place] [address] 92914 Platelet mean volume (Bld) [Entitic vol] 7.7 fL Normal 7-12 [facility] Comment on above: Performed By: #### 1 9123-9, CMP, 5643-2, CBCA #### [facility] ([id number]) [address] [place] [address] 14374 Platelets (Bld) [#/Vol] 327 10*3/uL Normal 150-450 [facility] Comment on above: Performed By: #### 1 9123-9, CMP, 5643-2, CBCA #### [facility] ([id number]) [address] [place] [address] 94047 RBC COUNT 4.66 X10E12/L Normal 3.80-5.20 [facility] Comment on above: Performed By: #### 1 9123-9, CMP, 5643-2, CBCA #### [facility] ([id number]) [address] [place] [address] 37105 WBC (Bld) [#/Vol] 10.2 10*3/uL Normal 4.0-11.0 [facility] Comment on above: Performed By: #### 1 9123-9, CMP, 5643-2, CBCA #### [facility] ([id number]) [address] [place] [address] 61912 COMPREHENSIVE METABOLIC PANE Basim 01-06-2024 Albumin [Mass/Vol] 4.6 g/dL Normal 3.2-5.3 [facility] Comment on above: Performed By: #### 1 9123-9, CMP, 5643-2, CBCA #### [facility] ([id number]) [address] [place] [address] 64741 ALP [Catalytic activity/Vol] 64 U/L Normal 39-130 [facility] Comment on above: Performed By: #### 1 9123-9, CMP, 5643-2, CBCA #### [facility] ([id number]) [address] [place] [address] 96585 ALT [Catalytic activity/Vol] 15 U/L Normal 0-31 [facility] Comment on above: Performed By: #### 1 9123-9, CMP, 5643-2, CBCA #### [facility] ([id number]) [address] [place] [address] 71039 Anion gap [Moles/Vol] 14 mmol/L Normal 5-15 [facility] Comment on above: Performed By: #### 1 9123-9, CMP, 5643-2, CBCA #### [facility] ([id number]) [address] [place] [address] 47038 AST [Catalytic activity/Vol] 21 U/L Normal 0-41 [facility] Comment on above: Performed By: #### 1 9123-9, CMP, 5643-2, CBCA #### [facility] ([id number]) [address] [place] [address] 40556 Bilirubin [Mass/Vol] 0.4 mg/dL Normal 0.3-1.2 [facility] Comment on above: Performed By: #### 1 9123-9, CMP, 5643-2, CBCA #### [facility] ([id number]) [address] [place] [address] 80100 Calcium [Mass/Vol] 9.0 mg/dL Normal 8.5-10.5 [facility] Comment on above: Performed By: #### 1 9123-9, CMP, 5643-2, CBCA #### [facility] ([id number]) [address] [place] [address], [place] [address] Chloride [Moles/Vol] 99 mmol/L Normal 98-109 [facility] Comment on above: Performed By: #### 1 9123-9, JERICHO, 5643-2, CBCA #### [facility] ([id number]) [address] [place] [address] 10821 CO2 [Moles/Vol] 26 mmol/L Normal 22-32 [facility] Comment on above: Performed By: #### 1 91-9, JERICHO, 5643-2, CBCA #### [facility] ([id number]) [address] [place] [address] 94754 Creatinine [Mass/Vol] 0.74 mg/dL Normal 0.40-1.00 [facility] Comment on above: Result Comment: METH OD TRACEABLE TO IDMS STANDARD Performed By: #### 1 91-9, JERICHO, 5643-2, CBCA #### [facility] ([id number]) [address] [place] [address] 15465 eGFR (CKD-EPI) NON-RACE DEPENDENT >90 Normal >59 [facility] Comment on above: Result Comment: Reported eGFR is based on the CKD-EPI 2020 equation that does not use a race coefficient. Performed By: #### 1 9123-9, JERICHO, 5643-2, CBCA #### [facility] ([id number]) [address] [place] [address] 89289 Glucose [Mass/Vol] 86 mg/dL Normal 65-99 [facility] Comment on above: Performed By: #### 1 9123-9, JERICHO, 5643-2, CBCA #### [facility] ([id number]) [address] [place] [address] 55001 Potassium [Moles/Vol] 3.6 mmol/L Normal 3.5-5.0 [facility] Comment on above: Performed By: #### 1 9123-9, CMP, 5643-2, CBCA #### [facility] ([id number]) [address] [place] [address] 47460 Protein [Mass/Vol] 7.9 g/dL Normal 6.0-8.0 [facility] Comment on above: Performed By: #### 1 9123-9, CMP, 5643-2, CBCA #### [facility] ([id number]) [address] [place] [address] 09623 Sodium [Moles/Vol] 139 mmol/L Normal 134-146 [facility] Comment on above: Performed By: #### 1 9123-9, CMP, 5643-2, CBCA #### [facility] ([id number]) [address] [place] [address] 11848 Urea nitrogen [Mass/Vol] 8 mg/dL Normal 5-23 [facility] Comment on above: Performed By: #### 1 9123-9, [facility], 5643-2, CBCA #### [facility] ([id number]) [address] [place] [address] 36374 ETHANOLon 01-06-2024 Ethanol [Mass/Vol] mg/dL Normal 0.00-0.08 [facility] Comment on above: Result Comment: This report is intended for use in clinical monitoring or management of patients. Performed By: #### 1 9123-9, CMP, 5643-2, CBCA #### [facility] ([id number]) [address] [place] [address] 81432 MAGNESIUMon 01-06-2024 Magnesium [Mass/Vol] 2.2 mg/dL Normal 1.8-2.6 [facility] Comment on above: Performed By: #### 1 9123-9, CMP, 5643-2, CBCA #### [facility] ([id number]) [address] [place] [address] 06132 37on 01-03-2024 37 Increase midodrine t o 10 mg three times a day for low blood pressure Increase metoprolol to 25 mg (1 tab) - if worsening lightheadedness may decrease back to 1/2 tab Add salt to diet/electrolyte replacements to help with preventing dehydration Normal [facility] Office Visiton 01-03-2024 Follow-up visit [id number] Juan Jose Kovacs 2000 F Date Provider Department Center 01/03/2024 120-GLOR[facility] No family history on file Level of Service:70576 NC OFFICE/OUTPATIENT ESTABLISHED MOD MDM 30 MIN Normal [facility] Insuranceon 01-02-2024 Insurance [id number]#1.00OTGT IFF Normal [facility] Basic Metabolic Panelon 11-25 Anion gap [Moles/Vol] 11 mmol/L 9 - 17 mmol/L [facility] Calcium [Mass/Vol] 9.4 mg/dL 8.6 - 10. 4 mg/dL [facility] Chloride [Moles/Vol] 100 mmol/L 98 - 10 7 mmol/L [facility] CO2 [Moles/Vol] 28 mmol/L 20 - 31 mmol/L [facility] Creatinine [Mass/Vol] 0.7 mg/dL 0.5 - 0.9 mg/dL [facility] Est, Glom Filt Rate - [facility] [employer] Comment on above: These results are not [...] [Mass/Vol] 88 mg/dL 70 - 99 mg/dL [facility] Potassium [Moles/Vol] 3.8 mmol/L 3.7 - 5.3 mmol/L [facility] Sodium [Moles/Vol] 139 mmol/L 135 - 144 mmol/L [facility] Urea nitrogen [Mass/Vol] 10 mg/dL 6 - 20 mg/dL [facility] Urea nitrogen/Creatinine [Mass ratio] 14 mg/mg 9 - 20 [facility] Basic Metabolic Profon 12-08 Anion gap [Moles/Vol] 11 mmol/L Normal 9-17 [facility] Comment on above: Performed By: #### C BC, BMP #### [facility] [address] [facility] [place] [address] Speech And Hearing Clinic Director: Chidi Richter MD BUN/CRE Ratio 14 Normal 9-20 [facility] Comment on above: Performed By: #### C BC, BMP #### [facility] [address] [place] [address] Speech [facility] Clinic Director: Chidi Richter MD Calcium [Mass/Vol] 9.4 mg/dL Normal 8.6-10.4 [facility] Comment on above: Performed By: #### C BC, BMP #### [facility] [address] [facility] [place] [address] Speech [facility] Clinic Director: Chidi Richter MD Chloride [Moles/Vol] 100 mmol/L Normal 98-107 [facility] Comment on above: Performed By: #### C BC, BMP #### [facility] [address] [facility] [place] [address] Speech [facility] Clinic Director: Chidi Richter MD CO2 [Moles/Vol] 28 mmol/L Normal 20-31 [facility] Comment on above: Performed By: #### C BC, BMP #### [facility] [address] [facility] [place] [address] [facility] Clinic Director: Chidi Richter MD Creatinine [Mass/Vol] 0.7 mg/dL Normal 0.5-0.9 [facility] Comment on above: Performed By: #### C BC, BMP #### [facility] [address] [place] [address] [facility] Director: Chidi Richter MD GFR/1.73 sq M.predicted among non-blacks MDRD (S/P/Bld) [Vol rate/Area] mL/min/{1.73_m2} Normal >60 [facility] Comment on above: Result Comment: These results [...] Performed By: #### C NARCISO, BMP #### [facility] [address] [facility] [place] [address] [facility] Director: Chidi Richter MD Glucose [Mass/Vol] 88 mg/dL Normal 70-99 [facility] Comment on above: Performed By: #### C NARCISO, BMP #### [facility] [address] [facility] [place] [address] [facility] Director: Chidi Richter MD Potassium [Moles/Vol] 3.8 mmol/L Normal 3.7-5.3 [facility] Comment on above: Performed By: #### C NARCISO, BMP #### [facility] [address] [facility] [place] [address] [facility] Director: Chidi Richter MD Sodium [Moles/Vol] 139 mmol/L Normal 135-144 [facility] Comment on above: Performed By: #### C NARCISO, BMP #### [facility] [address] [place] [address] [facility] Director: Chidi Richter MD Urea nitrogen [Mass/Vol] 10 mg/dL Normal 6-20 [facility] Comment on above: Performed By: #### C NARCISO, BMP #### [facility] [address] [place] [address] Speech [facility] Clinic Director: Chidi Richter MD [facility] 12-09-2023 Erythrocyte distribution width (RBC) [Ratio] 13.3 % 11.8 - 14.4 % [facility] Hematocrit (Bld) [Volume fraction] 40.9 % 36.3 - 47.1 % [facility] Hemoglobin (Bld) [Mass/Vol] 13.7 g/dL 11.9 - 15.1 g/dL [facility] MCH (RBC) [Entitic mass] 28.5 pg 25.2 - 33.5 pg [facility] MCHC (RBC) [Mass/Vol] 33.5 g/dL 28.4 - 34.8 g/dL [facility] MCV (RBC) [Entitic vol] 85.0 fL 82.6 - 102.9 fL [facility] Nucleated RBC/100 WBC (Bld) [Ratio] 0.0 % 0.0 per 100 WBC [facility] Platelet mean volume (Bld) [Entitic vol] 9.9 fL 8.1 - 13.5 fL [facility] Platelets (Bld) [#/Vol] 253 10*3/uL [facility] RBC (Bld) [#/Vol] 4.81 10*6/uL 3.95 - 5.11 m/uL [facility] WBC other (Bld) [#/Vol] 6.6 [facility] Erythrocyte distribution width (RBC) [Ratio] 13.3 % Normal 11.8-14.4 [facility] Comment on above: Performed By: #### C NARCISO, BMP #### [facility] [address] [place] [address] [facility] Director: Chidi Richter MD Hematocrit (Bld) [Volume fraction] 40.9 % Normal 36.3-47.1 [facility] Comment on above: Performed By: #### C NARCISO, BMP #### [facility] [address] [facility] [place] [address] [facility] Director: Chidi Richter MD Hemoglobin (Bld) [Mass/Vol] 13.7 g/dL Normal 11.9-15.1 [facility] Comment on above: Performed By: #### C NARCISO, BMP #### [facility] [address] [place] [address]. [place] [address] [facility] Director: Chidi Richter MD MCH (RBC) [Entitic mass] 28.5 pg Normal 25.2-33.5 [facility] Comment on above: Performed By: #### C NARCISO, BMP #### [facility] [address] [place] [address]. [place] [address] [facility] Director: Chidi Richter MD MCHC (RBC) [Mass/Vol] 33.5 g/dL Normal 28.4-34.8 [facility] Comment on above: Performed By: #### C NARCISO, BMP #### [facility] [address] [place] [address]. [place] [address] [facility] Director: Chidi Richter MD MCV (RBC) [Entitic vol] 85.0 fL Normal 82.6-102.9 [facility] Comment on above: Performed By: #### C NARCISO, BMP #### [facility] [address] [place] [address]. [place] [address] [facility] Director: Chidi Richter MD NRBC Automated 0.0 per 100 WBC Normal 0.0 [facility] Comment on above: Performed By: #### C NARCISO, BMP #### [facility] [address] [place] [address]. [place] [address] [facility] Director: Chidi Richter MD Platelet mean volume (Bld) [Entitic vol] 9.9 fL Normal 8.1-13.5 [facility] Comment on above: Performed By: #### C BC, BMP #### [facility] [address] [place] [address] [facility] Director: Chidi Richter MD Platelets (Bld) [#/Vol] 253 10*3/uL Normal 138-453 [facility] Comment on above: Performed By: #### C BC, BMP #### [facility] [address] [place] [address] [facility] Director: Chidi Richter MD RBC (Bld) [#/Vol] 4.81 10*6/uL Normal 3.95-5.11 [facility] Comment on above: Performed By: #### C BC, BMP #### [facility] [place] [address] [facility] Director: Chidi Richter MD WBC (Bld) [#/Vol] 6.6 10*3/uL Normal 3.5-11.3 [facility] Comment on above: Performed By: #### C BC, BMP #### [facility] [address] [place] [address] [facility] Director: Chidi Richter MD Basic Metabolic Profon 12-05 Anion gap [Moles/Vol] 17 mmol/L Normal 9-17 [facility] Comment on above: Performed By: #### B MP, CBC #### [facility] [address] [place] [address] [facility] Director: Chidi Richter MD BUN/CRE Ratio 20 Normal 9-20 [facility] Comment on above: Performed By: #### B MP, CBC #### [facility] [address] [place] [address] [facility] Director: Chidi Richter MD Calcium [Mass/Vol] 9.8 mg/dL Normal 8.6-10.4 [facility] Comment on above: Performed By: #### B MP, CBC #### [facility] [address] [facility] [place] [address] [facility] Director: Chidi Richter MD Chloride [Moles/Vol] 97 mmol/L Low 98-107 [facility] Comment on above: Performed By: #### B MP, CBC #### [facility] [address] [facility] [place] [address] [facility] Director: Chidi Richter MD CO2 [Moles/Vol] 25 mmol/L Normal 20-31 [facility] Comment on above: Performed By: #### B DANIEL, CBC #### [facility] [address] [place] [address]. [place] [address] [facility] Director: Chidi Richter MD Creatinine [Mass/Vol] 0.7 mg/dL Normal 0.5-0.9 [facility] Comment on above: Performed By: #### B DANIEL, CBC #### [facility] [place] [address] [facility] Director: Chidi Richter MD GFR/1.73 sq M.predicted among non-blacks MDRD (S/P/Bld) [Vol rate/Area] mL/min/{1.73_m2} Normal >60 [facility] Comment on above: Result Comment: These results [...] Performed By: #### B MP, CBC #### [facility] [address] [facility] [place] [address] [facility] Director: Chidi Richter MD Glucose [Mass/Vol] 56 mg/dL Low 70-99 [facility] Comment on above: Performed By: #### B MP, CBC #### [facility] [address] [facility] [place] [address] [facility] Director: Chidi Richter MD Potassium [Moles/Vol] 3.8 mmol/L Normal 3.7-5.3 [facility] Comment on above: Performed By: #### B MP, CBC #### [facility] [address] [place] [address]. [place] [address] [facility] Director: Chidi Richter MD Sodium [Moles/Vol] 139 mmol/L Normal 135-144 [facility] Comment on above: Performed By: #### B MP, CBC #### [facility] [address] [place], [place] [address] [place] [address] [facility] Director: Chidi Richter MD Urea nitrogen [Mass/Vol] 14 mg/dL Normal 6-20 [facility] Comment on above: Performed By: #### B MP, CBC #### [facility] [address] [place] [address]. [place] [address] [facility] Director: Chidi Richter MD CBCon 12-06-2023 Erythrocyte distribution width (RBC) [Ratio] 13.2 % Normal 11.8-14.4 [facility] Comment on above: Performed By: #### B MP, CBC #### [facility] [place] [address] [facility] Director: Chidi Richter MD Hematocrit (Bld) [Volume fraction] 40.6 % Normal 36.3-47.1 [facility] Comment on above: Performed By: #### B MP, CBC #### [facility] [address] [facility] [place] [address] [facility] Director: Chidi Richter MD Hemoglobin (Bld) [Mass/Vol] 13.6 g/dL Normal 11.9-15.1 [facility] Comment on above: Performed By: #### B MP, CBC #### [facility] [address] [place] [address]. [place] [address] [facility] Director: Chidi Richter MD MCH (RBC) [Entitic mass] 29.2 pg Normal 25.2-33.5 [facility] Comment on above: Performed By: #### B MP, CBC #### [facility] [address] [place] [address] [facility] Director: Chidi Richter MD MCHC (RBC) [Mass/Vol] 33.5 g/dL Normal 28.4-34.8 [facility] Comment on above: Performed By: #### B MP, CBC #### [facility] [address] [place] [address] [facility] Director: Chidi Richter MD MCV (RBC) [Entitic vol] 87.3 fL Normal 82.6-102.9 [facility] Comment on above: Performed By: #### B MP, CBC #### [facility] [address] [place] [address] [facility] Director: Chidi Richter MD NRBC Automated 0.0 per 100 WBC Normal 0.0 [facility] Comment on above: Performed By: #### B MP, CBC #### [facility] [address] [place] [address] [facility] Director: Chidi Richter MD Platelet mean volume (Bld) [Entitic vol] 10.3 fL Normal 8.1-13.5 [facility] Comment on above: Performed By: #### B MP, CBC #### [facility] [address] [place] [address] [facility] Director: Chidi Richter MD Platelets (Bld) [#/Vol] 233 10*3/uL Normal 138-453 [facility] Comment on above: Performed By: #### B MP, CBC #### [facility] [address] [place] [address] [facility] Director: Chidi Richter MD RBC (Bld) [#/Vol] 4.65 10*6/uL Normal 3.95-5.11 [facility] Comment on above: Performed By: #### B MP, CBC #### [facility] [address] [place] [address] [facility] Director: Chidi Richter MD WBC (Bld) [#/Vol] 7.0 10*3/uL Normal 3.5-11.3 [facility] Comment on above: Performed By: #### B MP, CBC #### [facility] [address] [place] [address] [facility] Director: Chidi Richter MD Basic Metabolic Profon 12-01 Anion gap [Moles/Vol] 10 mmol/L Normal 9-17 [facility] Comment on above: Performed By: #### C BC, BMP #### [facility] [address] [place] [address] [facility] Director: Chidi Richter MD BUN/CRE Ratio 11 Normal 9-20 [facility] Comment on above: Performed By: #### C BC, BMP #### [facility] [address] [place] [address] [facility] Director: Chidi Richter MD Calcium [Mass/Vol] 9.2 mg/dL Normal 8.6-10.4 [facility] Comment on above: Performed By: #### C BC, BMP #### [facility] [address] [facility] [place] [address] [facility] Director: Chidi Richter MD Chloride [Moles/Vol] 105 mmol/L Normal 98-107 [facility] Comment on above: Performed By: #### C BC, BMP #### [facility] [address] [facility] [place] [address] [facility] Director: Chidi Richtre MD CO2 [Moles/Vol] 26 mmol/L Normal 20-31 [facility] Comment on above: Performed By: #### C BC, BMP #### [facility] [address] [facility] [place] [address] [facility] Director: Chidi Richter MD Creatinine [Mass/Vol] 0.7 mg/dL Normal 0.5-0.9 [facility] Comment on above: Performed By: #### C NARCISO, BMP #### [facility] [address] [facility] [place] [address] [facility] Director: Chidi Richter MD GFR/1.73 sq M.predicted among non-blacks MDRD (S/P/Bld) [Vol rate/Area] mL/min/{1.73_m2} Normal >60 [facility] Comment on above: Result Comment: These results [...] Performed By: #### C BC, BMP #### [facility] [address] [facility] [place] [address] [facility] Director: Chidi Richter MD Glucose [Mass/Vol] 93 mg/dL Normal 70-99 [facility] Comment on above: Performed By: #### C BC, BMP #### [facility] [address] [place] [address] [facility] Director: Chidi Richter MD Potassium [Moles/Vol] 3.9 mmol/L Normal 3.7-5.3 [facility] Comment on above: Performed By: #### C BC, BMP #### [facility] [address] [facility] [place] [address] [facility] Director: Chidi Richter MD Sodium [Moles/Vol] 141 mmol/L Normal 135-144 [facility] Comment on above: Performed By: #### C NARCISO, BMP #### [facility] [address] [facility] [place] [address] [facility] Director: Chidi Richter MD Urea nitrogen [Mass/Vol] 8 mg/dL Normal 6-20 [facility] Comment on above: Performed By: #### C NARCISO, BMP #### [facility] [address] [facility] [place] [address] [facility] Director: Chidi Richter MD CBCon 12-02-2023 Erythrocyte distribution width (RBC) [Ratio] 13.0 % Normal 11.8-14.4 [facility] Comment on above: Performed By: #### C BC, BMP #### [facility] [address] [facility] [place] [address] [facility] Director: Chidi Richter MD Hematocrit (Bld) [Volume fraction] 39.2 % Normal 36.3-47.1 [facility] Comment on above: Performed By: #### C NARCISO, BMP #### [facility] [address] [place] [address] [facility] Director: Chidi Richter MD Hemoglobin (Bld) [Mass/Vol] 12.7 g/dL Normal 11.9-15.1 [facility] Comment on above: Performed By: #### C NARCISO, BMP #### [facility] [place] [address] [facility] Director: Chidi Richter MD MCH (RBC) [Entitic mass] 28.7 pg Normal 25.2-33.5 [facility] Comment on above: Performed By: #### C NARCISO, BMP #### [facility] [address] [place] [address]. [place] [address] [facility] Director: Chidi Richter MD MCHC (RBC) [Mass/Vol] 32.4 g/dL Normal 28.4-34.8 [facility] Comment on above: Performed By: #### C NARCISO, BMP #### [facility] [address] [place] [address]. [place] [address] [facility] Director: Chidi Richter MD MCV (RBC) [Entitic vol] 88.5 fL Normal 82.6-102.9 [facility] Comment on above: Performed By: #### Kristen STUART, BMP #### [facility] [address] [place] [address]. [place] [address] [facility] Director: Chidi Richter MD NRBC Automated 0.0 per 100 WBC Normal 0.0 [facility] Comment on above: Performed By: #### C NARCISO, BMP #### [facility] [address] [place] [address]. [place] [address] [facility] Director: Chidi Richter MD Platelet mean volume (Bld) [Entitic vol] 10.0 fL Normal 8.1-13.5 [facility] Comment on above: Performed By: #### C NARCISO, BMP #### [facility] [address] [place] [address] [place] [address] [facility] Director: Chidi Richter MD Platelets (Bld) [#/Vol] 221 10*3/uL Normal 138-453 [facility] Comment on above: Performed By: #### C NARCISO, BMP #### [facility] [address] [facility] [place] [address] [facility] Director: Chidi Richter MD RBC (Bld) [#/Vol] 4.43 10*6/uL Normal 3.95-5.11 [facility] Comment on above: Performed By: #### C NARCISO, BMP #### [facility] [address] [facility] [place] [address] [facility] Director: Chidi Richter MD WBC (Bld) [#/Vol] 7.4 10*3/uL Normal 3.5-11.3 [facility] Comment on above: Performed By: #### C NARCISO, BMP #### [facility] [address] [facility] [place] [address] [facility] Director: Chidi Richter MD [facility] Anion gap [Moles/Vol] 8 mmol/L Low 9 - 17 mmol/L [facility] Calcium [Mass/Vol] 8.8 mg/dL 8.6 - 10. 4 mg/dL [facility] Chloride [Moles/Vol] 106 mmol/L 98 - 10 7 mmol/L [facility] CO2 [Moles/Vol] 26 mmol/L 20 - 31 mmol/L [facility] Creatinine [Mass/Vol] 0.8 mg/dL 0.5 - 0.9 mg/dL [facility] Est, Glonoemy [place] Rate - [facility] [...] [Mass/Vol] 92 mg/dL 70 - 99 mg/dL [facility] Interpretation and review of laboratory results Abnormal [facility] Potassium [Moles/Vol] 4.1 mmol/L 3.7 - 5.3 mmol/L [facility] Sodium [Moles/Vol] 140 mmol/L 135 - 144 mmol/L [facility] Urea nitrogen [Mass/Vol] 11 mg/dL 6 - 20 mg/dL [facility] Urea nitrogen/Creatinine [Mass ratio] 14 mg/mg 9 - 20 [facility] Basic Metabolic Profon 11-30 Anion gap [Moles/Vol] 8 mmol/L Low 9-17 [facility] Comment on above: Performed By: #### C NARCISO, CP #### [facility] [address] [facility] [place] [address] [facility] Director: Chidi Richter MD BUN/CRE Ratio 14 Normal 9-20 [facility] Comment on above: Performed By: #### C NARCISO, CP #### [facility] [address] [facility] [place] [address] [facility] Director: Chidi Richter MD Calcium [Mass/Vol] 8.8 mg/dL Normal 8.6-10.4 [facility] Comment on above: Performed By: #### C NARCISO, CP #### [facility] [address] [facility] [place] [address] [facility] Director: Chidi Richter MD Chloride [Moles/Vol] 106 mmol/L Normal 98-107 [facility] Comment on above: Performed By: #### C NARCISO, CP #### [facility] [address] [facility] [place] [address] [facility] Director: Chidi Richter MD CO2 [Moles/Vol] 26 mmol/L Normal 20-31 [facility] Comment on above: Performed By: #### C NARCISO, CP #### [facility] [address] [facility] [place] [address] [facility] Director: Chidi Richter MD Creatinine [Mass/Vol] 0.8 mg/dL Normal 0.5-0.9 [facility] Comment on above: Performed By: #### C NARCISO, CP #### [facility] [address] [facility] [place] [address] [facility] Director: Chidi Richter MD GFR/1.73 sq M.predicted among non-blacks MDRD (S/P/Bld) [Vol rate/Area] mL/min/{1.73_m2} Normal >60 [facility] Comment on above: Result Comment: These results [...] affects renal tubular secretion. Performed By: #### Kristen STUART, CP #### [facility]4 [facility] [place] [address] [facility] Director: Chidi Richter MD Glucose [Mass/Vol] 92 mg/dL Normal 70-99 [facility] Comment on above: Performed By: #### C NARCISO, CP #### [facility] [address] [place] [address]. [place] [address] [facility] Director: Chidi Richter MD Potassium [Moles/Vol] 4.1 mmol/L Normal 3.7-5.3 [facility] Comment on above: Performed By: #### C NARCISO, CP #### [facility] [address] [place] [address] [place] [address] [facility] Director: Chidi Richter MD Sodium [Moles/Vol] 140 mmol/L Normal 135-144 [facility] Comment on above: Performed By: #### Kristen STUART, CP #### [facility] [address] [facility] [place] [address] [facility] Director: Chidi Richter MD Urea nitrogen [Mass/Vol] 11 mg/dL Normal 6-20 [facility] Comment on above: Performed By: #### C NARCISO, CP #### [facility] [address] [place], [place] [address]ia [facility] [place] [address] [facility] Director: Chidi Richter MD CBCon 12-01-2023 Erythrocyte distribution width (RBC) [Ratio] 13.1 % Normal 11.8-14.4 [facility] Comment on above: Performed By: #### C NARCISO, CP #### [facility] [address] [place], [place] [address]ia [facility] [place] [address] [facility] Director: Chidi Richter MD Hematocrit (Bld) [Volume fraction] 40.6 % Normal 36.3-47.1 [facility] Comment on above: Performed By: #### Kristen STUART, CP #### [facility] [address] [place], [place] [address]ia [facility] [place] [address] [facility] Director: Chidi Richter MD Hemoglobin (Bld) [Mass/Vol] 13.1 g/dL Normal 11.9-15.1 [facility] Comment on above: Performed By: #### C NARCISO, CP #### [facility] [address] [place], [place] [address]ia [facility] [place] [address] [facility] Director: Chidi Richter MD MCH (RBC) [Entitic mass] 28.7 pg Normal 25.2-33.5 [facility] Comment on above: Performed By: #### C NARCISO, CP #### [facility] [address] [place] [address] [facility] Director: Chidi Richter MD MCHC (RBC) [Mass/Vol] 32.3 g/dL Normal 28.4-34.8 [facility] Comment on above: Performed By: #### C NARCISO, CP #### [facility] [address] [place] [address] [facility] Director: Chidi Richter MD MCV (RBC) [Entitic vol] 88.8 fL Normal 82.6-102.9 [facility] Comment on above: Performed By: #### C NARCISO, CP #### [facility] [place] [address] [facility] Director: Chidi Richter MD NRBC Automated 0.0 per 100 WBC Normal 0.0 [facility] Comment on above: Performed By: #### C NARCISO, CP #### [facility] [facility] [place] [address] [facility] Director: Chidi Richter MD Platelet mean volume (Bld) [Entitic vol] 10.0 fL Normal 8.1-13.5 [facility] Comment on above: Performed By: #### C NARCISO, CP #### [facility] [facility] [place] [address] [facility] Director: Chidi Richter MD Platelets (Bld) [#/Vol] 222 10*3/uL Normal 138-453 [facility] Comment on above: Performed By: #### C NARCISO, CP #### [facility] [address] [place] [address] [facility] Director: Chidi Richter MD RBC (Bld) [#/Vol] 4.57 10*6/uL Normal 3.95-5.11 [facility] Comment on above: Performed By: #### C NARCISO, CP #### [facility] [address] [facility] [place] [address] [facility] Director: Chidi Richter MD WBC (Bld) [#/Vol] 6.0 10*3/uL Normal 3.5-11.3 [facility] Comment on above: Performed By: #### C NARCISO, CP #### [facility] [address] [facility]. [place], [place] [address] [facility] Director: Chidi Richter MD CBC with Auto Differentialon 12-01-2023 Basophils (Bld) [#/Vol] 0.03 10*3/uL [facility] Basophils/100 WBC (Bld) 1 % 0 - 2 % [facility] Eosinophils (Bld) [#/Vol] 0.08 10*3/uL [facility] Eosinophils/100 WBC (Bld) 1 % 1 - 4 % [facility] Erythrocyte distribution width (RBC) [Ratio] 13.0 % 11.8 - 14.4 % [facility] Hematocrit (Bld) [Volume fraction] 40.2 % 36.3 - 47.1 % [facility] Hemoglobin (Bld) [Mass/Vol] 13.0 g/dL 11.9 - 15.1 g/dL [facility] Immature granulocytes (Bld) [#/Vol] 0.01 10*3/uL [facility] Immature granulocytes/100 WBC (Bld) 0 % 0 [facility] Interpretation and review of laboratory results Abnormal [facility] Lymphocytes/100 WBC (Bld) 44 % High 24 - 43 % [facility] Lymphocytes/100 WBC (Bld) 2.68 % [facility] MCH (RBC) [Entitic mass] 28.8 pg 25.2 - 33.5 pg [facility] MCHC (RBC) [Mass/Vol] 32.3 g/dL 28.4 - 34.8 g/dL [facility] MCV (RBC) [Entitic vol] 89.1 fL 82.6 - 102.9 fL [facility] Monocytes/100 WBC (Bld) 8 % 3 - 12 % [facility] Monocytes/100 WBC (Bld) 0.47 % [facility] Neutrophils/100 WBC (Bld) 46 % 36 - 65 % [facility] Nucleated RBC/100 WBC (Bld) [Ratio] 0.0 % 0.0 per 100 WBC [facility] Platelet mean volume (Bld) [Entitic vol] 10.2 fL 8.1 - 13.5 fL [facility] Platelets (Bld) [#/Vol] 222 10*3/uL [facility] RBC (Bld) [#/Vol] 4.51 10*6/uL 3.95 - 5.11 m/uL [facility] Segmented neutrophils/100 WBC (Bld) 2.89 % [facility] WBC other (Bld) [#/Vol] 6.2 [facility] CBC with Diffon 12-01-2023 Abs. Basophil 0.03 k/uL Normal 0.00-0.20 [facility] Comment on above: Performed By: #### C NARCISO, CP #### [facility] [address] [place] [address] [facility] Director: Chidi Richter MD Abs.Imm.Granulocyte 0.01 k/uL Normal 0.00-0.30 [facility] Comment on above: Performed By: #### C NARCISO, CP #### [facility] [place] [address] [facility] Director: Chidi Richter MD Abs.Neutrophil (Seg) 2.89 k/uL Normal 1.50-8.10 [facility] Comment on above: Performed By: #### C NARCISO, CP #### [facility] [place] [address] [facility] Director: Chidi Richter MD Basophils/100 WBC (Bld) 1 % Normal 0-2 [facility] Comment on above: Performed By: #### C BC, CP #### [facility] [address] [place] [address] [facility] Director: Chidi Richter MD Eosinophils (Bld) [#/Vol] 0.08 10*3/uL Normal 0.00-0.44 [facility] Comment on above: Performed By: #### C BC, CP #### [facility] [address] [place] [address] [facility] Director: Chidi Richter MD Eosinophils/100 WBC (Bld) 1 % Normal 1-4 [facility] Comment on above: Performed By: #### C NARCISO, CP #### [facility] [address] [place], [place] [address]ia [facility] [place] [address] [facility] Director: Chidi Richter MD Erythrocyte distribution width (RBC) [Ratio] 13.0 % Normal 11.8-14.4 [facility] Comment on above: Performed By: #### C NARCISO, CP #### [facility] [facility] [place] [address] [facility] Director: Chidi Richter MD Hematocrit (Bld) [Volume fraction] 40.2 % Normal 36.3-47.1 [facility] Comment on above: Performed By: #### C BC, CP #### [facility] [address] [place] [address] [facility] Director: Chidi Richter MD Hemoglobin (Bld) [Mass/Vol] 13.0 g/dL Normal 11.9-15.1 [facility] Comment on above: Performed By: #### C NARCISO, CP #### [facility] [address] [place] [address] [facility] Director: Chidi Richter MD Immature granulocytes/100 WBC (Bld) 0 % Normal 0 [facility] Comment on above: Performed By: #### C NARCISO, CP #### [facility] [address] [facility] [place] [address] [facility] Director: Chidi Richter MD Lymphocytes (Bld) [#/Vol] 2.68 10*3/uL Normal 1.10-3.70 [facility] Comment on above: Performed By: #### C NARCISO, CP #### [facility] [address] [place] [address]. [place] [address] [facility] Director: Chidi Richter MD Lymphocytes/100 WBC (Bld) 44 % High 24-43 [facility] Comment on above: Performed By: #### C NARCISO, CP #### [facility] [address] [place] [address]. [place] [address] [facility] Director: Chidi Richter MD MCH (RBC) [Entitic mass] 28.8 pg Normal 25.2-33.5 [facility] Comment on above: Performed By: #### C NARCISO, CP #### [facility] [address] [place] [address]. [place] [address] [facility] Director: Chidi Richter MD MCHC (RBC) [Mass/Vol] 32.3 g/dL Normal 28.4-34.8 [facility] Comment on above: Performed By: #### C NARCISO, CP #### [facility] [place] [address] [facility] Director: Chidi Richter MD MCV (RBC) [Entitic vol] 89.1 fL Normal 82.6-102.9 [facility] Comment on above: Performed By: #### C NARCISO, CP #### [facility] [address] [place] [address]. [place] [address] [facility] Director: Chidi Richter MD Monocytes (Bld) [#/Vol] 0.47 10*3/uL Normal 0.10-1.20 [facility] Comment on above: Performed By: #### C NARCISO, CP #### [facility] [address] [place] [address] [facility] Director: Chidi Richter MD Monocytes/100 WBC (Bld) 8 % Normal 3-12 [facility] Comment on above: Performed By: #### C NARCISO, CP #### [facility] [address] [place] [address] [facility] Director: Chidi Richter MD Neutrophil (Seg) 46 % Normal 36-65 [facility] Comment on above: Performed By: #### C NARCISO, CP #### [facility] [address] [place] [address] [facility] Director: Chidi Richter MD NRBC Automated 0.0 per 100 WBC Normal 0.0 [facility] Comment on above: Performed By: #### C NARCISO, CP #### [facility] [address] [place] [address] [facility] Director: Chidi Richter MD Platelet mean volume (Bld) [Entitic vol] 10.2 fL Normal 8.1-13.5 [facility] Comment on above: Performed By: #### C NARCISO, CP #### [facility] [address] [place] [address] [facility] Director: Chidi Richter MD Platelets (Bld) [#/Vol] 222 10*3/uL Normal 138-453 [facility] Comment on above: Performed By: #### C NARCISO, CP #### [facility] [address] [place] [address] [facility] Director: hCidi Richter MD RBC (Bld) [#/Vol] 4.51 10*6/uL Normal 3.95-5.11 [facility] Comment on above: Performed By: #### C NARCISO, CP #### [facility] [address] [place], [place] [address] [facility] Director: Chidi Richter MD WBC (Bld) [#/Vol] 6.2 10*3/uL Normal 3.5-11.3 [facility] Comment on above: Performed By: #### C NARCISO, CP #### [facility] [address] [facility] [place] [address] [facility] Director: Chidi Richter MD CT CERVICAL SPINE WO [...] Alonso Jones MD 12/01/23 Final result Normal [facility] CT Cervical spine WO contras ton 12-01-2023 Radiology Study observation (narrative) [facility] CT HEAD WO CONTRASTon 2023 CT [...] Alonso Jones MD 12/01/23 Final result Normal [facility] CT Head WO contraston 2023 Radiology Study observation (narrative) [facility] Comp Metabolic Profon 2023 Albumin [Mass/Vol] 4.4 g/dL Normal 3.5-5.2 [facility] Comment on above: Performed By: #### C NARCISO, CP #### [facility] [address] [place] [address] [facility] Director: Chidi Richter MD Alkaline Phos 53 U/L Normal 35-104 [facility] Comment on above: Performed By: #### C NARCISO, CP #### [facility] [address] [place] [address] [facility] Director: Chidi Richter MD ALT [Catalytic activity/Vol] U/L Low 5-33 [facility] Comment on above: Performed By: #### C NARCISO, CP #### [facility] [address] [facility] [place] [address] [facility] Director: Chidi Richter MD Anion gap [Moles/Vol] 7 mmol/L Low 9-17 [facility] Comment on above: Performed By: #### C NARCISO, CP #### [facility] [address] [facility] [place] [address] [facility] Director: Chidi Richter MD AST [Catalytic activity/Vol] 14 U/L Normal <32 [facility] Comment on above: Performed By: #### C NARCISO, CP #### [facility] [address] [place] [address] [facility] Director: Chidi Richter MD Bilirubin [Mass/Vol] 0.2 mg/dL Low 0.3-1.2 [facility] Comment on above: Performed By: #### C NARCISO, CP #### [facility] [address] [place] [address] [facility] Director: Chidi Richter MD BUN/CRE Ratio 16 Normal 9-20 [facility] Comment on above: Performed By: #### C NARCISO, CP #### [facility] [address] [place] [address] [facility] Director: Chidi Richter MD Calcium [Mass/Vol] 9.4 mg/dL Normal 8.6-10.4 [facility] Comment on above: Performed By: #### C NARCISO, CP #### [facility] [address] [place] [address] [facility] Director: Chidi Richter MD Chloride [Moles/Vol] 104 mmol/L Normal 98-107 [facility] Comment on above: Performed By: #### C NARCISO, CP #### [facility] [address] [place] [address] [facility] Director: Chidi Richter MD CO2 [Moles/Vol] 31 mmol/L Normal 20-31 [facility] Comment on above: Performed By: #### C NARCISO, CP #### [facility] [address] [place] [address] [facility] Director: Chidi Richter MD Creatinine [Mass/Vol] 0.9 mg/dL Normal 0.5-0.9 [facility] Comment on above: Performed By: #### C NARCISO, CP #### [facility] [address] [place] [address] [facility] Director: Chidi Richter MD GFR/1.73 sq M.predicted among non-blacks MDRD (S/P/Bld) [Vol rate/Area] mL/min/{1.73_m2} Normal >60 [facility] Comment on above: Result Comment: These results [...] tubular secretion. Performed By: #### C BC, CP #### [facility] [address] [facility] [place] [address] [facility] Director: Chidi Richter MD Glucose [Mass/Vol] 95 mg/dL Normal 70-99 [facility] Comment on above: Performed By: #### C NARCISO, CP #### [facility] [address] [facility] [place] [address] [facility] Director: Chidi Richter MD Potassium [Moles/Vol] 4.1 mmol/L Normal 3.7-5.3 [facility] Comment on above: Performed By: #### C NARCISO, CP #### [facility] [address] [facility] [place] [address] [facility] Director: Chidi Richter MD Protein [Mass/Vol] 7.0 g/dL Normal 6.4-8.3 [facility] Comment on above: Performed By: #### C BC, CP #### [facility] [address] [place] [address] [facility] Director: Chidi Richter MD Sodium [Moles/Vol] 142 mmol/L Normal 135-144 [facility] Comment on above: Performed By: #### C NARCISO, CP #### [facility] [address] [place], [place] [address] [facility] Director: Chidi Richter MD Urea nitrogen [Mass/Vol] 14 mg/dL Normal 6-20 [facility] Comment on above: Performed By: #### C NARCISO, CP #### [facility] [address] [place] [address] [facility] Director: Chidi Richter MD No Panel Informationon 11-30 No acute abnormaliti es seen in the head and cervical spine. [facility] RIS CONSOLIDATED EXAMINATION: CT OF THE CERVICAL [...] There is no prevertebral soft tissue swelling. [facility] Alonso Beth MD - 12/01/2023 EXAMINATION: CT OF THE [...] seen in the head and cervical spine. [facility] [employer] [facility] No Panel InformationOrdered By: Alonso Jones on 12-01-2023 [facility] Work Phone: CBC AND AUTO DIFFon 06-05-20 24 ABSOLUTE BASOPHIL 0.0 X10E9/L Normal 0.0-0.2 [place] Comment on above: Performed By: #### C BCA, BMP #### [facility] ([id number]) [address], [address] [place] [address] ABSOLUTE NEUTROPHIL 4.3 X10E9/L Normal 1.5-6.6 [facility] Comment on above: Performed By: #### C BCA, BMP #### [facility] ([id number]) [address] [address] [place] [address] Basophils/100 WBC (Bld) 0.6 % Normal [facility] Comment on above: Performed By: #### C BCA, BMP #### [facility] ([id number]) [address] [address] Eosinophils (Bld) [#/Vol] 0.1 10*3/uL Normal 0.0-0.4 [facility] Comment on above: Performed By: #### C BCA, BMP #### [facility] ([id number]) [address] [address] Eosinophils/100 WBC (Bld) 1.1 % Normal [facility] Comment on above: Performed By: #### C BCA, BMP #### [facility] ([id number]) [address] [address] [place] [address] Erythrocyte distribution width (RBC) [Ratio] 14.5 % Normal 11.5-15.0 [facility] Comment on above: Performed By: #### C BCA, BMP #### [facility] ([id number]) [address] [address] [place] [address] Hematocrit (Bld) [Volume fraction] 38.7 % Normal 35-47 [facility] Comment on above: Performed By: #### C BCA, BMP #### [facility] ([id number]) [address] [place] [address] Hemoglobin (Bld) [Mass/Vol] 13.3 g/dL Normal 11.7-15.5 [facility] Comment on above: Performed By: #### C BCA, BMP #### [facility] ([id number]) [address], [address] [place] [address] Lymphocytes (Bld) [#/Vol] 2.5 10*3/uL Normal 1.0-3.5 [facility] Comment on above: Performed By: #### C SLAVA, BMP #### [facility] ([id number]) [address], [address] [place] [address] Lymphocytes/100 WBC (Bld) 32.3 % Normal [facility] Comment on above: Performed By: #### C SLAVA, BMP #### [facility] ([id number]) [address], [address] [place] [address] MCH (RBC) [Entitic mass] 29.1 pg Normal 27-34 [facility] Comment on above: Performed By: #### C SLAVA, BMP #### [facility] ([id number]) [address], [address] [place] [address] MCHC (RBC) [Mass/Vol] 34.3 g/dL Normal 32-36 [facility] Comment on above: Performed By: #### C BCA, BMP #### [facility] ([id number]) [address], [address] [place] [address] MCV (RBC) [Entitic vol] 85 fL Normal 80-100 [facility] Comment on above: Performed By: #### C BCA, BMP #### [facility] ([id number]) [address], [address] [place] [address] Monocytes (Bld) [#/Vol] 0.7 10*3/uL Normal 0-0.9 [facility] Comment on above: Performed By: #### C BCA, BMP #### [facility] ([id number]) [address], [address] [place] [address] Monocytes/100 WBC (Bld) 9.6 % Normal [facility] Comment on above: Performed By: #### C BCA, BMP #### [facility] ([id number]) [address], [address] [place] [address] Neutrophils/100 WBC (Bld) 56.4 % Normal [facility] Comment on above: Performed By: #### C SLAVA, BMP #### [facility] ([id number]) [address], [address] [place] [address] Platelet mean volume (Bld) [Entitic vol] 7.9 fL Normal 7-12 [facility] Comment on above: Performed By: #### C SLAVA, BMP #### [facility] ([id number]) [address], [address] [place] [address] Platelets (Bld) [#/Vol] 221 10*3/uL Normal 150-450 [facility] Comment on above: Performed By: #### C SLAVA, BMP #### [facility] ([id number]) [address], [address] [place] [address] RBC COUNT 4.57 X10E12/L Normal 3.80-5.20 [facility] Comment on above: Performed By: #### C SLAVA, BMP #### [facility] ([id number]) [address], [address] [place] [address] WBC (Bld) [#/Vol] 7.7 10*3/uL Normal 4.0-11.0 [place] Comment on above: Performed By: #### C SLAVA, BMP #### [facility] ([id number]) [address], [address] [place] [address] COMPREHENSIVE METABOLIC PANE Basim 11-30-2023 Albumin [Mass/Vol] 4.4 g/dL Normal 3.2-5.3 [place] Comment on above: Performed By: #### C BCA, BMP #### [facility] ([id number]) [address], [address] [place] [address] ALP [Catalytic activity/Vol] 45 U/L Normal 39-130 [facility] Comment on above: Performed By: #### C BCA, BMP #### [facility] ([id number]) [address], [address] [place] [address] ALT [Catalytic activity/Vol] 3 U/L Normal 0-31 [facility] Comment on above: Performed By: #### C BCA, BMP #### [facility] ([id number]) [address], [address] [place] [address] Anion gap [Moles/Vol] 8 mmol/L Normal 5-15 [facility] Comment on above: Performed By: #### C BCA, BMP #### [facility] ([id number]) [address], [address] [place] [address] AST [Catalytic activity/Vol] 14 U/L Normal 0-41 [facility] Comment on above: Performed By: #### C BCA, BMP #### [facility] ([id number]) [address], [address] [place] [address] Bilirubin [Mass/Vol] 0.6 mg/dL Normal 0.3-1.2 [facility] Comment on above: Performed By: #### C BCA, BMP #### [facility] ([id number]) [address], [address] [place] [address] Calcium [Mass/Vol] 9.7 mg/dL Normal 8.5-10.5 [place] Comment on above: Performed By: #### C BCA, BMP #### [facility] ([id number]) [address], [address] [place] [address] Chloride [Moles/Vol] 103 mmol/L Normal 98-109 [facility] Comment on above: Performed By: #### C SLAVA, BMP #### [facility] ([id number]) [address], [address] [place] [address] CO2 [Moles/Vol] 31 mmol/L Normal 22-32 [facility] Comment on above: Performed By: #### C SLAVA, BMP #### [facility] ([id number]) [address], [address] [place] [address] Creatinine [Mass/Vol] 0.85 mg/dL Normal 0.40-1.00 [facility] Comment on above: Result Comment: METH OD TRACEABLE TO IDMS STANDARD Performed By: #### C SLAVA, BMP #### [facility] ([id number]) [address], [address] [place] [address] eGFR (CKD-EPI) NON-RACE DEPENDENT >90 Normal >59 [facility] Comment on above: Result Comment: Reported eGFR is based on the CKD-EPI 2020 equation that does not use a race coefficient. Performed By: #### C SLAVA, BMP #### [facility] ([id number]) [address], [address] [place] [address] Glucose [Mass/Vol] 98 mg/dL Normal 65-99 [place] Comment on above: Performed By: #### C SLAVA, BMP #### [facility] ([id number]) [address], [address] [place] [address] Potassium [Moles/Vol] 4.1 mmol/L Normal 3.5-5.0 [facility] Comment on above: Performed By: #### C BCA, BMP #### [facility] ([id number]) [address], [address] [place] [address] Protein [Mass/Vol] 6.9 g/dL Normal 6.0-8.0 [place] Comment on above: Performed By: #### C BCA, BMP #### [facility] ([id number]) [address], [address] [place] [address] Sodium [Moles/Vol] 142 mmol/L Normal 134-146 [place] Comment on above: Performed By: #### C BCA, BMP #### [facility] ([id number]) [address], [address] [place] [address] Urea nitrogen [Mass/Vol] 15 mg/dL Normal 5-23 [facility] Comment on above: Performed By: #### C BCA, BMP #### [facility] ([id number]) [address], [address] [place] [address] CBC AND AUTO DIFFon 11-29-19 ABSOLUTE BASOPHIL 0.0 X10E9/L Normal 0.0-0.2 [place] Comment on above: Performed By: #### C BCA, BMP #### [facility] ([id number]) [address], [address] [place] [address] ABSOLUTE NEUTROPHIL 2.3 X10E9/L Normal 1.5-6.6 [facility] Comment on above: Performed By: #### C BCA, BMP #### [facility] ([id number]) [address] [address] Basophils/100 WBC (Bld) 0.5 % Normal [facility] Comment on above: Performed By: #### C BCA, BMP #### [facility] ([id number]) [address] [address] Eosinophils (Bld) [#/Vol] 0.1 10*3/uL Normal 0.0-0.4 [facility] Comment on above: Performed By: #### C BCA, BMP #### [facility] ([id number]) [address], [address] [place] [address] Eosinophils/100 WBC (Bld) 2.2 % Normal [facility] Comment on above: Performed By: #### C BCA, BMP #### [facility] ([id number]) [address], [address] [place] [address] Erythrocyte distribution width (RBC) [Ratio] 14.1 % Normal 11.5-15.0 [facility] Comment on above: Performed By: #### C BCA, BMP #### [facility] ([id number]) [address], [address] [place] [address] Hematocrit (Bld) [Volume fraction] 39.7 % Normal 35-47 [facility] Comment on above: Performed By: #### C SLAVA, BMP #### [facility] ([id number]) [address], [address] [place] [address] Hemoglobin (Bld) [Mass/Vol] 13.4 g/dL Normal 11.7-15.5 [facility] Comment on above: Performed By: #### C SLAVA, BMP #### [facility] ([id number]) [address], [address] [place] [address] Lymphocytes (Bld) [#/Vol] 2.6 10*3/uL Normal 1.0-3.5 [facility] Comment on above: Performed By: #### C BCA, BMP #### [facility] ([id number]) [address] [place] [address] Lymphocytes/100 WBC (Bld) 46.1 % Normal [facility] Comment on above: Performed By: #### C BCA, BMP #### [facility] ([id number]) [address], [address] [place] [address] MCH (RBC) [Entitic mass] 29.1 pg Normal 27-34 [facility] Comment on above: Performed By: #### C SLAVA, BMP #### [facility] ([id number]) [address], [address] [place] [address] MCHC (RBC) [Mass/Vol] 33.8 g/dL Normal 32-36 [facility] Comment on above: Performed By: #### C SLAVA, BMP #### [facility] ([id number]) [address], [address] [place] [address] MCV (RBC) [Entitic vol] 86 fL Normal 80-100 [facility] Comment on above: Performed By: #### C SLAVA, BMP #### [facility] ([id number]) [address], [address] [place] [address] Monocytes (Bld) [#/Vol] 0.5 10*3/uL Normal 0-0.9 [facility] Comment on above: Performed By: #### C SLAVA, BMP #### [facility] ([id number]) [address] [place] [address] Monocytes/100 WBC (Bld) 9.7 % Normal [facility] Comment on above: Performed By: #### C SLAVA, BMP #### [facility] ([id number]) [address] [place] [address] Neutrophils/100 WBC (Bld) 41.5 % Normal [facility] Comment on above: Performed By: #### C SLAVA, BMP #### [facility] ([id number]) [address], [address] [place] [address] Platelet mean volume (Bld) [Entitic vol] 8.2 fL Normal 7-12 [facility] Comment on above: Performed By: #### C BCA, BMP #### [facility] ([id number]) [address], [address] [place] [address] Platelets (Bld) [#/Vol] 205 10*3/uL Normal 150-450 [facility] Comment on above: Performed By: #### C BCA, BMP #### [facility] ([id number]) [address], [address] [place] [address] RBC COUNT 4.60 X10E12/L Normal 3.80-5.20 [facility] Comment on above: Performed By: #### C BCA, BMP #### [facility] ([id number]) [address], [address] [place] [address] WBC (Bld) [#/Vol] 5.7 10*3/uL Normal 4.0-11.0 [place] Comment on above: Performed By: #### C BCA, BMP #### [facility] ([id number]) [address], [address] [place] [address] COMPREHENSIVE METABOLIC PANE Basim 11-29-2023 Albumin [Mass/Vol] 4.2 g/dL Normal 3.2-5.3 [place] Comment on above: Performed By: #### C BCA, BMP #### [facility] ([id number]) [address], [address] [place] [address] ALP [Catalytic activity/Vol] 44 U/L Normal 39-130 [facility] Comment on above: Performed By: #### C BCA, BMP #### [facility] ([id number]) [address], [address] [place] [address] ALT [Catalytic activity/Vol] 3 U/L Normal 0-31 [facility] Comment on above: Performed By: #### C BCA, BMP #### [facility] ([id number]) [address], [address] [place] [address] Anion gap [Moles/Vol] 9 mmol/L Normal 5-15 [facility] Comment on above: Performed By: #### C BCA, BMP #### [facility] ([id number]) [address], [address] [place] [address] AST [Catalytic activity/Vol] 15 U/L Normal 0-41 [facility] Comment on above: Performed By: #### C BCA, BMP #### [facility] ([id number]) [address] [place] [address] Bilirubin [Mass/Vol] 0.5 mg/dL Normal 0.3-1.2 [facility] Comment on above: Performed By: #### C BCA, BMP #### [facility] ([id number]) [address], [address] [place] [address] Calcium [Mass/Vol] 9.6 mg/dL Normal 8.5-10.5 [place] Comment on above: Performed By: #### C BCA, BMP #### [facility] ([id number]) [address] [place] [address] Chloride [Moles/Vol] 104 mmol/L Normal 98-109 [facility] Comment on above: Performed By: #### C BCA, BMP #### [facility] ([id number]) [address] [place] [address] CO2 [Moles/Vol] 29 mmol/L Normal 22-32 [facility] Comment on above: Performed By: #### C BCA, BMP #### [facility] ([id number]) [address], [address] [place] [address] Creatinine [Mass/Vol] 0.92 mg/dL Normal 0.40-1.00 [facility] Comment on above: Result Comment: METH OD TRACEABLE TO IDMS STANDARD Performed By: #### C BCA, BMP #### [facility] ([id number]) [address] [place] [address] eGFR (CKD-EPI) NON-RACE DEPENDENT >90 Normal >59 [facility] Comment on above: Result Comment: Reported eGFR is based on the CKD-EPI 2020 equation that does not use a race coefficient. Performed By: #### C BCA, BMP #### [facility] ([id number]) [address], [address] [place] [address] Glucose [Mass/Vol] 92 mg/dL Normal 65-99 [place] Comment on above: Performed By: #### C BCA, BMP #### [facility] ([id number]) [address] [address] Potassium [Moles/Vol] 4.0 mmol/L Normal 3.5-5.0 [facility] Comment on above: Performed By: #### C BCA, BMP #### [facility] ([id number]) [address] [address] Protein [Mass/Vol] 7.0 g/dL Normal 6.0-8.0 [place] Comment on above: Performed By: #### C BCA, BMP #### [facility] ([id number]) [address] [place] [address] Sodium [Moles/Vol] 142 mmol/L Normal 134-146 [place] Comment on above: Performed By: #### C BCA, BMP #### [facility] ([id number]) [address] [address] Urea nitrogen [Mass/Vol] 17 mg/dL Normal 5-23 [facility] [facility] Comment on above: Performed By: #### C BCA, BMP #### [facility] ([id number]) [address] [address] Glucose Glucometer (BldC) [M ass/Vol]on 11-29-2023 Glucose [Mass/Vol] 84 mg/dL Normal 65-99 [place] CBC AND AUTO DIFFon 11-28-19 24 ABSOLUTE BASOPHIL 0.0 X10E9/L Normal 0.0-0.2 [place] Comment on above: Performed By: #### C BCA, BMP #### [facility] ([id number]) [address], [address] [place] [address] ABSOLUTE NEUTROPHIL 3.0 X10E9/L Normal 1.5-6.6 [facility] Comment on above: Performed By: #### C BCA, BMP #### [facility] ([id number]) [address], [address] [place] [address] Basophils/100 WBC (Bld) 0.6 % Normal [facility] Comment on above: Performed By: #### C BCA, BMP #### [facility] ([id number]) [address], [address] [place] [address] Eosinophils (Bld) [#/Vol] 0.1 10*3/uL Normal 0.0-0.4 [facility] Comment on above: Performed By: #### C BCA, BMP #### [facility] ([id number]) [address], [address] [place] [address] Eosinophils/100 WBC (Bld) 1.0 % Normal [facility] Comment on above: Performed By: #### C BCA, BMP #### [facility] ([id number]) [address], [address] [place] [address] Erythrocyte distribution width (RBC) [Ratio] 14.6 % Normal 11.5-15.0 [facility] Comment on above: Performed By: #### C BCA, BMP #### [facility] ([id number]) [address], [address] [place] [address] Hematocrit (Bld) [Volume fraction] 40.1 % Normal 35-47 [facility] Comment on above: Performed By: #### C BCA, BMP #### [facility] ([id number]) [address], [address] [place] [address] Hemoglobin (Bld) [Mass/Vol] 13.7 g/dL Normal 11.7-15.5 [facility] Comment on above: Performed By: #### C SLAVA, BMP #### [facility] ([id number]) [address], [address] [place] [address] Lymphocytes (Bld) [#/Vol] 2.8 10*3/uL Normal 1.0-3.5 [facility] Comment on above: Performed By: #### C SLAVA, BMP #### [facility] ([id number]) [address], [facility] [address] [place] [address] Lymphocytes/100 WBC (Bld) 43.5 % Normal [facility] Comment on above: Performed By: #### C SLAVA, BMP #### [facility] ([id number]) [address], [address] [place] [address] MCH (RBC) [Entitic mass] 29.3 pg Normal 27-34 [facility] Comment on above: Performed By: #### C SLAVA, BMP #### [facility] ([id number]) [address], [address] [place] [address] MCHC (RBC) [Mass/Vol] 34.1 g/dL Normal 32-36 [facility] Comment on above: Performed By: #### C SLAVA, BMP #### [facility] ([id number]) [address], [address] [place] [address] MCV (RBC) [Entitic vol] 86 fL Normal 80-100 [facility] Comment on above: Performed By: #### C SLAVA, BMP #### [facility] ([id number]) [address], [address] [place] [address] Monocytes (Bld) [#/Vol] 0.5 10*3/uL Normal 0-0.9 [facility] Comment on above: Performed By: #### C SLAVA, BMP #### [facility] ([id number]) [address], [address] [place] [address] Monocytes/100 WBC (Bld) 8.2 % Normal [facility] Comment on above: Performed By: #### Kristen PEDERSEN, BMP #### [facility] ([id number]) [address], [address] [place] [address] Neutrophils/100 WBC (Bld) 46.7 % Normal [facility] Comment on above: Performed By: #### C SLAVA, BMP #### [facility] ([id number]) [address], [address] [place] [address] Platelet mean volume (Bld) [Entitic vol] 8.8 fL Normal 7-12 [facility] Comment on above: Performed By: #### C SLAVA, BMP #### [facility] ([id number]) [address], [address] [place] [address] Platelets (Bld) [#/Vol] 220 10*3/uL Normal 150-450 [facility] Comment on above: Performed By: #### Kristen PEDERSEN, BMP #### [facility] ([id number]) [address] [place] [address] RBC COUNT 4.67 X10E12/L Normal 3.80-5.20 [facility] Comment on above: Performed By: #### Kristen PEDERSEN, BMP #### [facility] ([id number]) [address], [address] [place] [address] WBC (Bld) [#/Vol] 6.4 10*3/uL Normal 4.0-11.0 [place] Comment on above: Performed By: #### Kristen PEDERSEN, BMP #### [facility] ([id number]) [address], [address] [place] [address] COMPREHENSIVE METABOLIC PANE Basim 11-28-2023 Albumin [Mass/Vol] 4.8 g/dL Normal 3.2-5.3 [place] Comment on above: Performed By: #### C BCA, BMP #### [facility] ([id number]) [address], [address] [place] [address] ALP [Catalytic activity/Vol] 41 U/L Normal 39-130 [facility] Comment on above: Performed By: #### C BCA, BMP #### [facility] ([id number]) [address], [address] [place] [address] ALT [Catalytic activity/Vol] 4 U/L Normal 0-31 [facility] Comment on above: Performed By: #### C BCA, BMP #### [facility] ([id number]) [address], [address] [place] [address] Anion gap [Moles/Vol] 12 mmol/L Normal 5-15 [facility] Comment on above: Performed By: #### C BCA, BMP #### [facility] ([id number]) [address], [address] [place] [address] AST [Catalytic activity/Vol] 29 U/L Normal 0-41 [facility] Comment on above: Performed By: #### C BCA, BMP #### [facility] ([id number]) [address], [address] [place] [address] Bilirubin [Mass/Vol] 0.8 mg/dL Normal 0.3-1.2 [facility] Comment on above: Performed By: #### C BCA, BMP #### [facility] ([id number]) [address], [address] [place] [address] Calcium [Mass/Vol] 9.4 mg/dL Normal 8.5-10.5 [place] Comment on above: Performed By: #### C BCA, BMP #### [facility] ([id number]) [address], [address] [place] [address] Chloride [Moles/Vol] 104 mmol/L Normal 98-109 [facility] Comment on above: Performed By: #### C SLAVA, BMP #### [facility] ([id number]) [address], [facility] [address] [place] [address] CO2 [Moles/Vol] 25 mmol/L Normal 22-32 [facility] Comment on above: Performed By: #### C SLAAV, BMP #### [facility] ([id number]) [address] [address] Creatinine [Mass/Vol] 0.82 mg/dL Normal 0.40-1.00 [facility] Comment on above: Result Comment: METH OD TRACEABLE TO IDMS STANDARD Performed By: #### C SLAVA, BMP #### [facility] ([id number]) [address], [address] [address] eGFR (CKD-EPI) NON-RACE DEPENDENT >90 Normal >59 [facility] Comment on above: Result Comment: Reported eGFR is based on the CKD-EPI 2020 equation that does not use a race coefficient. Performed By: #### C SLAVA, BMP #### [facility] ([id number]) [address] [address] [place] [address] Glucose [Mass/Vol] 81 mg/dL Normal 65-99 [place] Comment on above: Performed By: #### C SLAVA, BMP #### [facility] ([id number]) [address] [address] [place] [address] Potassium [Moles/Vol] 5.2 mmol/L High 3.5-5.0 [facility] Comment on above: Result Comment: SPEC IMEN HEMOLYZED, RESULTS INCREASED MARKEDLY HEMOLYZED Performed By: #### C SLAVA, BMP #### [facility] ([id number]) [address] [address] [place] [address] Protein [Mass/Vol] 7.4 g/dL Normal 6.0-8.0 [place] Comment on above: Performed By: #### C BCA, BMP #### [facility] ([id number]) [address], [address] [place] [address] Sodium [Moles/Vol] 141 mmol/L Normal 134-146 [place] Comment on above: Result Comment: RESU LTS QUESTIONABLE DUE TO HEMOLYSIS MARKEDLY HEMOLYZED Performed By: #### C BCA, BMP #### [facility] ([id number]) [address] [place] [address] Urea nitrogen [Mass/Vol] 21 mg/dL Normal 5-23 [facility] Comment on above: Performed By: #### C SLAVA, BMP #### [facility] ([id number]) [address], [address] [place] [address] CBC AND AUTO DIFFon 11-27-19 24 ABSOLUTE BASOPHIL 0.0 X10E9/L Normal 0.0-0.2 [place] Comment on above: Performed By: #### C BCA, CMP ####[facility] ([id number])[address], [place] [address] ABSOLUTE NEUTROPHIL 4.7 X10E9/L Normal 1.5-6.6 [facility] Comment on above: Performed By: #### C BCA, CMP ####[facility] ([id number])[address] [address], [place] [address] Basophils/100 WBC (Bld) 0.5 % Normal [facility] Comment on above: Performed By: #### C BCA, CMP ####[facility] ([id number])[address] [address] [place] [address] Eosinophils (Bld) [#/Vol] 0.1 10*3/uL Normal 0.0-0.4 [facility] Comment on above: Performed By: #### C BCA, CMP ####[facility] ([id number])[address] [address] [address] Eosinophils/100 WBC (Bld) 1.3 % Normal [facility] Comment on above: Performed By: #### C BCA, CMP ####[facility] ([id number])[address], [address] [address] Erythrocyte distribution width (RBC) [Ratio] 14.1 % Normal 11.5-15.0 [facility] Comment on above: Performed By: #### C SLAVA, CMP ####[facility] ([id number])[address] [address] [address] Hematocrit (Bld) [Volume fraction] 41.2 % Normal 35-47 [facility] Comment on above: Performed By: #### C SLAVA, CMP ####[facility] ([id number])[address] [address] [address] Hemoglobin (Bld) [Mass/Vol] 13.9 g/dL Normal 11.7-15.5 [facility] Comment on above: Performed By: #### C SLAVA, CMP ####[facility] ([id number])[address] [address], [place] [address] Lymphocytes (Bld) [#/Vol] 3.2 10*3/uL Normal 1.0-3.5 [facility] Comment on above: Performed By: #### C BCA, CMP ####[facility] ([id number])[address] [address] [address] Lymphocytes/100 WBC (Bld) 36.0 % Normal [facility] Comment on above: Performed By: #### C BCA, CMP ####[facility] ([id number])[address] [address] [address] MCH (RBC) [Entitic mass] 28.8 pg Normal 27-34 [facility] Comment on above: Performed By: #### C BCA, CMP ####[facility] ([id number])[address], [address], [place] [address] MCHC (RBC) [Mass/Vol] 33.6 g/dL Normal 32-36 [facility] Comment on above: Performed By: #### C BCA, CMP ####[facility] ([id number])[address], [address], [place] [address] MCV (RBC) [Entitic vol] 86 fL Normal 80-100 [facility] Comment on above: Performed By: #### C SLAVA, CMP ####[facility] ([id number])[address], [address], [place] [address] Monocytes (Bld) [#/Vol] 0.7 10*3/uL Normal 0-0.9 [facility] Comment on above: Performed By: #### C BCA, CMP ####[facility] ([id number])[address], [address], [place] [address] Monocytes/100 WBC (Bld) 8.3 % Normal [facility] Comment on above: Performed By: #### C SLAVA, CMP ####[facility] ([id number])[address], [address], [place] [address] Neutrophils/100 WBC (Bld) 53.9 % Normal [facility] Comment on above: Performed By: #### C BCA, CMP ####[facility] ([id number])[address], [address], [place] [address] Platelet mean volume (Bld) [Entitic vol] 8.2 fL Normal 7-12 [facility] Comment on above: Performed By: #### C BCA, CMP ####[facility] ([id number])[address], [address], [place] [address] Platelets (Bld) [#/Vol] 258 10*3/uL Normal 150-450 [facility] Comment on above: Performed By: #### C SLAVA, CMP ####[facility] ([id number])[address], [address] [place] [address] RBC COUNT 4.81 X10E12/L Normal 3.80-5.20 [facility] Comment on above: Performed By: #### C SLAVA, CMP ####[facility] ([id number])[address] [address] WBC (Bld) [#/Vol] 8.8 10*3/uL Normal 4.0-11.0 [place] Comment on above: Performed By: #### C SLAVA, CMP ####[facility] ([id number])[address], [address] [address] COMPREHENSIVE METABOLIC PANE Basim 11-27-2023 Albumin [Mass/Vol] 4.7 g/dL Normal 3.2-5.3 [place] Comment on above: Performed By: #### C SLAVA, BMP #### [facility] ([id number]) [address], [address] [place] [address] ALP [Catalytic activity/Vol] 48 U/L Normal 39-130 [facility] Comment on above: Performed By: #### Kristen PEDERSEN, BMP #### [facility] ([id number]) [address], [address] [place] [address] ALT [Catalytic activity/Vol] 4 U/L Normal 0-31 [facility] Comment on above: Performed By: #### Kristen PEDERSEN, BMP #### [facility] ([id number]) [address], [address] [place] [address] Anion gap [Moles/Vol] 11 mmol/L Normal 5-15 [facility] Comment on above: Performed By: #### Kristen BCA, BMP #### [facility] ([id number]) [address], [address] [place] [address] AST [Catalytic activity/Vol] 15 U/L Normal 0-41 [facility] Comment on above: Performed By: #### C BCA, BMP #### [facility] ([id number]) [address], [address] [place] [address] Bilirubin [Mass/Vol] 0.6 mg/dL Normal 0.3-1.2 [facility] Comment on above: Performed By: #### C BCA, BMP #### [facility] ([id number]) [address] [place] [address] Calcium [Mass/Vol] 9.8 mg/dL Normal 8.5-10.5 [place] Comment on above: Performed By: #### C SLAVA, BMP #### [facility] ([id number]) [address], [address] [place] [address] Chloride [Moles/Vol] 103 mmol/L Normal 98-109 [facility] Comment on above: Performed By: #### C BCA, BMP #### [facility] ([id number]) [address], [address] [place] [address] CO2 [Moles/Vol] 24 mmol/L Normal 22-32 [facility] Comment on above: Performed By: #### C BCA, BMP #### [facility] ([id number]) [address], [address] [place] [address] Creatinine [Mass/Vol] 0.76 mg/dL Normal 0.40-1.00 [facility] Comment on above: Result Comment: METH OD TRACEABLE TO IDMS STANDARD Performed By: #### C BCA, BMP #### [facility] ([id number]) [address], [address] [place] [address] eGFR (CKD-EPI) NON-RACE DEPENDENT >90 Normal >59 [facility] Comment on above: Result Comment: Reported eGFR is based on the CKD-EPI 2020 equation that does not use a race coefficient. Performed By: #### C BCA, BMP #### [facility] ([id number]) [address], [address] [place] [address] Glucose [Mass/Vol] 83 mg/dL Normal 65-99 [place] Comment on above: Performed By: #### C BCA, BMP #### [facility] ([id number]) [address] [address] [place] [address] Potassium [Moles/Vol] 3.8 mmol/L Normal 3.5-5.0 [facility] Comment on above: Performed By: #### C BCA, BMP #### [facility] ([id number]) [address] [address] [place] [address] Protein [Mass/Vol] 7.4 g/dL Normal 6.0-8.0 [place] Comment on above: Performed By: #### C BCA, BMP #### [facility] ([id number]) [address] [place] [address] Sodium [Moles/Vol] 138 mmol/L Normal 134-146 [place] Comment on above: Performed By: #### C BCA, BMP #### [facility] ([id number]) [address] [address] [place] [address] Urea nitrogen [Mass/Vol] 22 mg/dL Normal 5-23 [facility] Comment on above: Performed By: #### C BCA, BMP #### [facility] ([id number]) [address] [address] [place] [address] CBC AND AUTO DIFFon 11-26-19 24 ABSOLUTE BASOPHIL 0.0 X10E9/L Normal 0.0-0.2 [place] Comment on above: Performed By: #### C BCA, CMP ####[facility] ([id number])[address] [address] ABSOLUTE NEUTROPHIL 3.0 X10E9/L Normal 1.5-6.6 [facility] Comment on above: Performed By: #### C BCA, CMP ####[facility] ([id number])[address], [address] [address] Basophils/100 WBC (Bld) 0.7 % Normal [facility] Comment on above: Performed By: #### C SLAVA, CMP ####[facility] ([id number])[address] [address] Eosinophils (Bld) [#/Vol] 0.0 10*3/uL Normal 0.0-0.4 [facility] Comment on above: Performed By: #### C SLAVA, CMP ####[facility] ([id number])[address] [address] [address] Eosinophils/100 WBC (Bld) 0.7 % Normal [facility] Comment on above: Performed By: #### C SLAVA, CMP ####[facility] ([id number])[address] [address] [address] Erythrocyte distribution width (RBC) [Ratio] 14.6 % Normal 11.5-15.0 [facility] Comment on above: Performed By: #### C SLAVA, CMP ####[facility] ([id number])[address] [address] Hematocrit (Bld) [Volume fraction] 41.1 % Normal 35-47 [facility] Comment on above: Performed By: #### C BCA, CMP ####[facility] ([id number])[address] [address] Hemoglobin (Bld) [Mass/Vol] 13.6 g/dL Normal 11.7-15.5 [facility] Comment on above: Performed By: #### C BCA, CMP ####[facility] ([id number])[address] [address], [place] [address] Lymphocytes (Bld) [#/Vol] 2.7 10*3/uL Normal 1.0-3.5 [facility] Comment on above: Performed By: #### C BCA, CMP ####[facility] ([id number])[address], [address] [place] [address] Lymphocytes/100 WBC (Bld) 41.7 % Normal [facility] Comment on above: Performed By: #### C BCA, CMP ####[facility] ([id number])[address] [address], [place] [address] MCH (RBC) [Entitic mass] 28.9 pg Normal 27-34 [facility] Comment on above: Performed By: #### C BCA, CMP ####[facility] ([id number])[address] [address], [place] [address] MCHC (RBC) [Mass/Vol] 33.2 g/dL Normal 32-36 [facility] Comment on above: Performed By: #### C BCA, CMP ####[facility] ([id number])[address] [address] MCV (RBC) [Entitic vol] 87 fL Normal 80-100 [facility] Comment on above: Performed By: #### C BCA, CMP ####[facility] ([id number])[address] [address] [place] [address] Monocytes (Bld) [#/Vol] 0.7 10*3/uL Normal 0-0.9 [facility] Comment on above: Performed By: #### C BCA, CMP ####[facility] ([id number])[address] [address] [place] [address] Monocytes/100 WBC (Bld) 10.5 % Normal [facility] Comment on above: Performed By: #### C SLAVA, CMP ####[facility] ([id number])[address] [address] [address] Neutrophils/100 WBC (Bld) 46.4 % Normal [facility] Comment on above: Performed By: #### C SLAVA, CMP ####[facility] ([id number])[address] [address] Platelet mean volume (Bld) [Entitic vol] 8.2 fL Normal 7-12 [facility] Comment on above: Performed By: #### C SLAVA, CMP ####[facility] ([id number])[address] [address] Platelets (Bld) [#/Vol] 226 10*3/uL Normal 150-450 [facility] Comment on above: Performed By: #### C SLAVA, CMP ####[facility] ([id number])[address] [address] RBC COUNT 4.72 X10E12/L Normal 3.80-5.20 [facility] Comment on above: Performed By: #### C SLAVA, CMP ####[facility] ([id number])[address] [address] WBC (Bld) [#/Vol] 6.6 10*3/uL Normal 4.0-11.0 [place] Comment on above: Performed By: #### C SLAVA, CMP ####[facility] ([id number])[address] [address] [address] COMPREHENSIVE METABOLIC PANE [facility] 11-26-2023 Albumin [Mass/Vol] 4.7 g/dL Normal 3.2-5.3 [place] Comment on above: Performed By: #### C BCA, CMP ####[facility] ([id number])[address], [place] [address] ALP [Catalytic activity/Vol] 48 U/L Normal 39-130 [facility] [facility] Comment on above: Performed By: #### C BCA, CMP ####[facility] ([id number])[address], [address], [place] [address] ALT [Catalytic activity/Vol] 4 U/L Normal 0-31 [facility] Comment on above: Performed By: #### C BCA, CMP ####[facility] ([id number])[address], [address], [place] [address] Anion gap [Moles/Vol] 12 mmol/L Normal 5-15 [facility] Comment on above: Performed By: #### C BCA, CMP ####[facility] ([id number])[address], [address], [place] [address] AST [Catalytic activity/Vol] 14 U/L Normal 0-41 [facility] Comment on above: Performed By: #### C BCA, CMP ####[facility] ([id number])[address], [address], [place] [address] Bilirubin [Mass/Vol] 0.8 mg/dL Normal 0.3-1.2 [facility] Comment on above: Performed By: #### C BCA, CMP ####[facility] ([id number])[address], [address], [place] [address] Calcium [Mass/Vol] 9.8 mg/dL Normal 8.5-10.5 [place] Comment on above: Performed By: #### C BCA, CMP ####[facility] ([id number])[address], [address], [place] [address] Chloride [Moles/Vol] 106 mmol/L Normal 98-109 [facility] Comment on above: Performed By: #### C BCA, CMP ####[facility] ([id number])[address] [address] [address] CO2 [Moles/Vol] 24 mmol/L Normal 22-32 [facility] Comment on above: Performed By: #### C BCA, CMP ####[facility] ([id number])[address] [address] [address] Creatinine [Mass/Vol] 0.78 mg/dL Normal 0.40-1.00 [facility] Comment on above: Result Comment: METH OD TRACEABLE TO IDMS STANDARD Performed By: #### C BCA, CMP ####[facility] ([id number])[address] [address] [address] eGFR (CKD-EPI) NON-RACE DEPENDENT >90 Normal >59 [facility] Comment on above: Result Comment: Reported eGFR is based on the CKD-EPI 2020 equation that does not use a race coefficient. Performed By: #### C BCA, CMP ####[facility] ([id number])[address] [address] [address] Glucose [Mass/Vol] 73 mg/dL Normal 65-99 [place] Comment on above: Performed By: #### C BCA, CMP ####[facility] ([id number])[address] [address] [address] Potassium [Moles/Vol] 4.3 mmol/L Normal 3.5-5.0 [facility] Comment on above: Performed By: #### C BCA, CMP ####[facility] ([id number])[address] [address] [address] Protein [Mass/Vol] 7.3 g/dL Normal 6.0-8.0 [place] Comment on above: Performed By: #### C BCA, CMP ####[facility] ([id number])[address], [address], [place] [address] Sodium [Moles/Vol] 142 mmol/L Normal 134-146 [place] Comment on above: Performed By: #### C BCA, CMP ####[facility] ([id number])[address] [address], [place] [address] Urea nitrogen [Mass/Vol] 16 mg/dL Normal 5-23 [facility] Comment on above: Performed By: #### C BCA, CMP ####[facility] ([id number])[address] [address], [place] [address] CBC AND AUTO DIFFon 11-25-19 24 ABSOLUTE BASOPHIL 0.0 X10E9/L Normal 0.0-0.2 [place] Comment on above: Performed By: #### C MP, CBCA ####[facility] ([id number])[address] [address], [place] [address] ABSOLUTE NEUTROPHIL 4.0 X10E9/L Normal 1.5-6.6 [facility] Comment on above: Performed By: #### C MP, CBCA ####[facility] ([id number])[address] [address], [place] [address] Basophils/100 WBC (Bld) 0.4 % Normal [facility] Comment on above: Performed By: #### C MP, CBCA ####[facility] ([id number])[address] [address], [place] [address] Eosinophils (Bld) [#/Vol] 0.0 10*3/uL Normal 0.0-0.4 [facility] Comment on above: Performed By: #### C MP, CBCA ####[facility] ([id number])[address] [address], [place] [address] Eosinophils/100 WBC (Bld) 0.5 % Normal [facility] Comment on above: Performed By: #### C MP, CBCA ####[facility] ([id number])[address] [address], [place] [address] Erythrocyte distribution width (RBC) [Ratio] 14.6 % Normal 11.5-15.0 [facility] Comment on above: Performed By: #### C MP, CBCA ####[facility] ([id number])[address] [address], [place] [address] Hematocrit (Bld) [Volume fraction] 40.1 % Normal 35-47 [facility] Comment on above: Performed By: #### C MP, CBCA ####[facility] ([id number])[address] [address], [place] [address] Hemoglobin (Bld) [Mass/Vol] 13.6 g/dL Normal 11.7-15.5 [facility] Comment on above: Performed By: #### C MP, CBCA ####[facility] ([id number])[address] [address] Lymphocytes (Bld) [#/Vol] 2.7 10*3/uL Normal 1.0-3.5 [facility] Comment on above: Performed By: #### C MP, CBCA ####[facility] ([id number])[address] [address] Lymphocytes/100 WBC (Bld) 37.3 % Normal [facility] Comment on above: Performed By: #### C MP, CBCA ####[facility] ([id number])[address] [address] MCH (RBC) [Entitic mass] 29.0 pg Normal 27-34 [facility] Comment on above: Performed By: #### C MP, CBCA ####[facility] ([id number])[address] [place] [address] MCHC (RBC) [Mass/Vol] 33.8 g/dL Normal 32-36 [facility] Comment on above: Performed By: #### C MP, CBCA ####[facility] ([id number])[address], [address] [place] [address] MCV (RBC) [Entitic vol] 86 fL Normal 80-100 [facility] Comment on above: Performed By: #### C MP, CBCA ####[facility] ([id number])[address] [address] [address] Monocytes (Bld) [#/Vol] 0.5 10*3/uL Normal 0-0.9 [facility] Comment on above: Performed By: #### C MP, CBCA ####[facility] ([id number])[address] [address] [address] Monocytes/100 WBC (Bld) 6.8 % Normal [facility] Comment on above: Performed By: #### C MP, CBCA ####[facility] ([id number])[address], [address] [address] Neutrophils/100 WBC (Bld) 55.0 % Normal [facility] Comment on above: Performed By: #### C MP, CBCA ####[facility] ([id number])[address] [address] [address] Platelet mean volume (Bld) [Entitic vol] 8.0 fL Normal 7-12 [facility] Comment on above: Performed By: #### C MP, CBCA ####[facility] ([id number])[address] [address], [place] [address] Platelets (Bld) [#/Vol] 239 10*3/uL Normal 150-450 [facility] Comment on above: Performed By: #### C MP, CBCA ####[facility] ([id number])[address], [address], [place] [address] RBC COUNT 4.67 X10E12/L Normal 3.80-5.20 [facility] Comment on above: Performed By: #### C DANIEL CBCA ####[facility] ([id number])[address], [address] [place] [address] WBC (Bld) [#/Vol] 7.3 10*3/uL Normal 4.0-11.0 [place] Comment on above: Performed By: #### C DANIEL CBCA ####[facility] ([id number])[address], [address], [place] [address] COMPREHENSIVE METABOLIC PANE Basim 11-25-2023 Albumin [Mass/Vol] 4.4 g/dL Normal 3.2-5.3 [place] Comment on above: Performed By: #### C DANIEL CBCA ####[facility] ([id number])[address], [address], [place] [address] ALP [Catalytic activity/Vol] 46 U/L Normal 39-130 [facility] Comment on above: Performed By: #### C DANIEL CBCA ####[facility] ([id number])[address], [address], [place] [address] ALT [Catalytic activity/Vol] 5 U/L Normal 0-31 [facility] Comment on above: Performed By: #### C DANIEL CBCA ####[facility] ([id number])[address], [address], [place] [address] Anion gap [Moles/Vol] 7 mmol/L Normal 5-15 [facility] Comment on above: Performed By: #### C DANIEL, CBCA ####[facility] ([id number])[address], [address] [place] [address], [place] [address] AST [Catalytic activity/Vol] 15 U/L Normal 0-41 [facility] Comment on above: Performed By: #### C DANIEL CBCA ####[facility] ([id number])[address] [address], [place] [address] Bilirubin [Mass/Vol] 0.7 mg/dL Normal 0.3-1.2 [facility] Comment on above: Performed By: #### C DANIEL, CBCA ####[facility] ([id number])[address] [address] [place] [address] Calcium [Mass/Vol] 9.5 mg/dL Normal 8.5-10.5 [place] Comment on above: Performed By: #### C DANIEL CBCA ####[facility] ([id number])[address] [address] [place] [address] Chloride [Moles/Vol] 108 mmol/L Normal 98-109 [facility] Comment on above: Performed By: #### C DANIEL CBCA ####[facility] ([id number])[address] [address] CO2 [Moles/Vol] 28 mmol/L Normal 22-32 [facility] Comment on above: Performed By: #### C DANIEL CBCA ####[facility] ([id number])[address] [address] Creatinine [Mass/Vol] 0.78 mg/dL Normal 0.40-1.00 [facility] Comment on above: Result Comment: METH OD TRACEABLE TO IDMS STANDARD Performed By: #### C DANIEL CBCA ####[facility] ([id number])[address] [place] [address] eGFR (CKD-EPI) NON-RACE DEPENDENT >90 Normal >59 [facility] Comment on above: Result Comment: Reported eGFR is based on the CKD-EPI 2020 equation that does not use a race coefficient. Performed By: #### C DANIEL CBCA ####[facility] ([id number])[address], [address] [address] Glucose [Mass/Vol] 102 mg/dL High 65-99 [place] Comment on above: Performed By: #### C DANIEL, CBCA ####[facility] ([id number])[address] [address] Potassium [Moles/Vol] 4.1 mmol/L Normal 3.5-5.0 [facility] Comment on above: Performed By: #### C DANIEL CBCA ####[facility] ([id number])[address] [address], [place] [address] Protein [Mass/Vol] 7.5 g/dL Normal 6.0-8.0 [place] Comment on above: Performed By: #### C DANIEL CBCA ####[facility] ([id number])[address] [address] [address] Sodium [Moles/Vol] 143 mmol/L Normal 134-146 [place] Comment on above: Performed By: #### C DANIEL, CBCA ####[facility] ([id number])[address] [address], [place] [address] Urea nitrogen [Mass/Vol] 11 mg/dL Normal 5-23 [facility] Comment on above: Performed By: #### C DANIEL CBCA ####[facility] ([id number])[address], [address] [address] DRUG SCREEN, URINEon 024 AMPHETAMINE/METHAMP Negative Normal NEG [facility] Comment on above: Result Comment: AMPH /METH screening cut off = 1000 ng/mL Performed By: #### D HIGGINS ####[facility] ([id number])[address], [address] [address] BARBITURATES Negative Normal NEG [facility] Comment on above: Result Comment: Dominique iturates screening cut off value = 200 ng/mL Performed By: #### D HIGGINS ####[facility] ([id number])[address], [address], [place] [address] BENZODIAZEPINES Positive Abnormal NEG [facility] Comment on above: Result Comment: Conf irmation available upon request. Benzodiazepines screening cut off value = 200 ng/mL Performed By: #### D HIGGINS ####[facility] ([id number])[address], [address] [place] [address] CANNABINOIDS Positive Abnormal NEG [facility] Comment on above: Result Comment: Conf irmation available upon request. Cannabinoids/THC screening cut off value = 50 ng/mL Performed By: #### D HIGGINS ####[facility] ([id number])[address], [address] [place] [address] COCAINE METABOLITE Negative Normal NEG [place] Comment on above: Result Comment: Coca ine screening cut off value = 300 ng/mL Performed By: #### D HIGGINS ####[facility] ([id number])[address], [address] [place] [address] ECSTASY Negative Normal NEG [facility] Comment on above: Result Comment: Ecst asy screening cut off value = 500 ng/mL This report is intended for use in clinical monitoring or management of patients. Performed By: #### D HIGGINS ####[facility] ([id number])[address], [address] [place] [address] METHADONE Negative Normal NEG [facility] Comment on above: Result Comment: Meth adone screening cut off value = 300 ng/mL. Performed By: #### D HIGGINS ####[facility] ([id number])[address], [address] [place] [address] OPIATES Negative Normal NEG [facility] Comment on above: Result Comment: Opia mamta screening cut off value = 300 ng/mL NOTE: This test is used for the detection of codeine, hydrocodone (>1000 ng/mL), morphine and hydromorphone (>900 ng/mL) in urine. Performed By: #### D HIGGINS ####[facility] ([id number])[address], [address], [place] [address] OXYCODONE Negative Normal NEG [facility] Comment on above: Result Comment: Oxyc odone screening cut off value = 300 ng/mL NOTE: This test is used for the detection of oxycodone and oxymorphone in urine. Performed By: #### D HIGGINS ####[facility] ([id number])[address], [place] [address] PHENCYCLIDINE Negative Normal NEG [facility] Comment on above: Result Comment: Phen cyclidine screening cut off value = 25 ng/mL Performed By: #### D HIGGINS ####[facility] ([id number])[address], [address] [place] [address] Glucose Glucometer (BldC) [M ass/Vol]on 11-25-2023 Glucose [Mass/Vol] 89 mg/dL Normal 65-99 [place] Glucose [Mass/Vol] 86 mg/dL Normal 65-99 [place] MAGNESIUMon 11-25-2023 Magnesium [Mass/Vol] 2.1 mg/dL Normal 1.8-2.6 [facility] Comment on above: Performed By: #### 3 968-5, 43316-6 ####[facility] ([id number])[address], [place] [address] Phenytoin [Mass/Vol]on 11-24 DILANTIN 22.1 ug/mL High 10.0-20.0 [facility] Comment on above: Performed By: #### 3 968-5, 92007-6 #### [facility] ([id number]) [address] [facility] [facility] [place] [address] cloBAZam and norclobazam nevarez loraine 11-25-2023 CLOBAZAM 62.2 ng/mL Normal 30-300 [facility] N-desmethylclobazam 232.0 ng/mL Low 300-3000 [facility] Comment on above: Result Comment: NOTE ADDITIONAL INFORMATION This test was developed and its performance characteristics determined by [facility] in a manner consistent with CLIA requirements. This test has not been cleared or approved by the U.S. Food and Drug Administration. Test Performed by: [place] [address] [facility] Director: Daryn Hoskins M.D. Ph.D.; CLIA# [id number] lamoTRIgine [Mass/Vol]on Lamotrigine, S 4.5 mcg/mL Normal 3.0-15.0 [facility] Comment on above: Result Comment: NOTE ADDITIONAL INFORMATION This test was developed and its performance characteristics determined by [facility] in a manner consistent with CLIA requirements. This test has not been cleared or approved by the U.S. Food and Drug Administration. Test Performed by: [facility] [place] [place] [address] [facility] Director: Daryn Hoskins M.D. Ph.D.; CLIA# [id number] Performed By: #### 3 968-5, 94031-6 ####[facility] ([id number])[address] [facility] [facility], [place] [address] Glucose Glucometer (BldC) [M ass/Vol]on 10-17-2023 Glucose [Mass/Vol] 78 mg/dL Normal 65-99 [place] HCG ( test) Ql (U)o n 10-17-2023 Beta HCG ( test) Ql (U) Negative Normal NEG [facility] Comment on above: Performed By: #### 2 106-3 #### [facility] ([id number]) [address] [place] [address] Bacteria identified Cx Nom ( U)on 10-11-2023 Service comment (Unsp spec) [Interp] <10,000 ORGANISMS/ML NORMAL URO GENITAL ZANDER [facility] BASIC METABOLIC PANLon 10-09 Anion gap [Moles/Vol] 7 mmol/L Normal 5-15 [facility] Comment on above: Performed By: #### B MP #### [facility] ([id number]) [address] [place] [address] Calcium [Mass/Vol] 9.0 mg/dL Normal 8.5-10.5 [facility] Comment on above: Performed By: #### B MP #### [facility] ([id number]) [address] [place] [address] Chloride [Moles/Vol] 106 mmol/L Normal 98-109 [facility] Comment on above: Performed By: #### B MP #### [facility] ([id number]) [address] [place] [address] CO2 [Moles/Vol] 25 mmol/L Normal 22-32 [facility] Comment on above: Performed By: #### B MP #### [facility] ([id number]) [address] [place] [address] Creatinine [Mass/Vol] 0.81 mg/dL Normal 0.40-1.00 [facility] Comment on above: Result Comment: METH OD TRACEABLE TO IDMS STANDARD Performed By: #### B MP #### [facility] ([id number]) [address] [place] [address] eGFR (CKD-EPI) NON-RACE DEPENDENT >90 Normal >59 [facility] Comment on above: Result Comment: Reported eGFR is based on the CKD-EPI 2020 equation that does not use a race coefficient. Performed By: #### B MP #### [facility] ([id number]) [address] [place] [address] Glucose [Mass/Vol] 103 mg/dL High 65-99 [facility] Comment on above: Performed By: #### B MP #### [facility] ([id number]) [address] [place] [address] Potassium [Moles/Vol] 3.6 mmol/L Normal 3.5-5.0 [facility] Comment on above: Performed By: #### B MP #### [facility] ([id number]) [address] [place] [address] Sodium [Moles/Vol] 138 mmol/L Normal 134-146 [facility] Comment on above: Performed By: #### B MP #### [facility] ([id number]) [address] [place] [address] Urea nitrogen [Mass/Vol] 12 mg/dL Normal 5-23 [facility] Comment on above: Performed By: #### B MP #### [facility] ([id number]) [address] [place] [address] Basic Metabolic Panelon 09-25 Anion gap [Moles/Vol] 7 mmol/L 5 - 15 mmol/L [facility] Calcium [Mass/Vol] 9.0 mg/dL 8.5 - 10. 5 mg/dL [facility] Chloride [Moles/Vol] 106 mmol/L 98 - 10 9 mmol/L [facility] CO2 [Moles/Vol] 25 mmol/L 22 - 32 mmol/L [facility] Creatinine [Mass/Vol] 0.81 mg/dL 0.40 - 1.00 mg/dL [facility] Comment on above: METHOD TRACEABLE TO IDMS STANDARD eGFR (CKD-EPI)non-race dependent - PINF [facility] Comment on above: Reported eGFR is based on the CKD-EPI 2020 equation that does not use a race coefficient. Glucose [Mass/Vol] 103 mg/dL High 65 - 99 mg/dL [facility] Interpretation and review of laboratory results Abnormal [facility] Potassium [Moles/Vol] 3.6 mmol/L 3.5 - 5.0 mmol/L [facility] Sodium [Moles/Vol] 138 mmol/L 134 - 146 mmol/L [facility] Urea nitrogen [Mass/Vol] 12 mg/dL 5 - 23 mg/dL [facility] URINALYSISon 10-10-2023 Bilirubin Ql (U) Negative Normal NEG [facility] BLOOD/HGB MODERATE Abnormal NEG [facility] CA OXALATE CRYSTALS PRESENT Abnormal NONE [facility] Color (U) YELLOW Normal YELLOW [facility] Glucose Ql (U) Negative Normal NEG [facility] Ketones Ql (U) Negative Normal NEG [facility] Leukocyte esterase Test strip Ql (U) Negative Normal NEG [facility] MUCOUS PRESENT Abnormal NONE [facility] Nitrite Ql (U) Negative Normal NEG [facility] pH (U) 7.0 [pH] Normal 5.0-8.5 [facility] Protein Ql (U) Trace Abnormal NEG [facility] R.B.CELLS 3 /hpf Normal 0-5 [facility] Specific gravity (U) [Rel density] 1.024 Normal 1.003-1.03 5 [facility] SQUAMOUS EPITHELIUM 8 /hpf High 0-5 [facility] TURBIDITY CLEAR Normal CLEAR [facility] Urobilinogen (U) [Mass/Vol] mg/dL Normal <1.1 [facility] W.B.CELLS 3 /hpf Normal 0-5 [facility] URINE CULTUREon 10-10-2023 Bacteria identified Cx Nom (U) CULTURE RESULTS <10,000 ORGANISMS/ML NORMAL URO GENITAL ZANDER Normal [facility] Comment on above: Performed By: #### 6 30-4 #### [facility] ([id number]) [address], [address] [place] [address] Urinalysison 10-10-2023 Bilirubin Ql (U) Negative Negative^N egative [facility] Calcium oxalate crystals LM Ql (Urine sed) PRESENT Abnormal NONE^NONE [facility] Color (U) YELLOW YELLOW^YEL LOW [facility] Epithelial cells Auto (Urine sed) [#/Area] 8 High [facility] Glucose (U) [Mass/Vol] Negative Negat bruno^N egative mg/dL [facility] Hemoglobin Auto test strip Ql (U) MODERATE Abnormal Negative^N egative [facility] Interpretation and review of laboratory results Abnormal [facility] Ketones (U) [Mass/Vol] Negative Negat bruno^N egative mg/dL [facility] Leukocyte esterase Auto test strip Ql (U) Negative Negative^N egative [facility] Mucus Ql (Urine sed) PRESENT Abnormal NONE^NONE [facility] Nitrite Auto test strip Ql (U) Negative Negative^N egative [facility] pH (U) 7.0 [pH] 5.0 - 8.5 [facility] Protein (U) [Mass/Vol] Trace Abnormal Negat bruno^N egative mg/dL [facility] RBC Auto (Urine sed) [#/Area] 3 [facility] Specific gravity Refractometry automated (U) [Rel density] 1.024 1.003 - 1.035 [facility] Turbidity Ql (U) CLEAR CLEAR^JOSE R [facility] Urobilinogen Qn (U) NINF [facility] WBC Auto (Urine sed) [#/Area] 3 [facility] XR LUMBAR SPINE AP, LATERAL, FLEXION AND [...] Strange MD on 09/20/2023 11:39 AM Normal [facility] POCT , urineon 08-26 Beta HCG ( test) Ql (U) Negative [facility] POCT , urineon 08-25 Beta HCG ( test) Ql (U) Negative [facility] Internal Printer Technician Check Completed and Passed Yes [facility] Interpretation and review of laboratory results Normal [facility] POCT Urinalysis Auto Onlyon 09-07-2023 External Poct Urine Blood Trace [facility] External Poct Urine Glucose Negative [facility] External Poct Urine Ketones Negative [facility] External Poct Urine Leukocyte Esterase Negative [facility] External Poct Urine Nitrite Negative [facility] External Poct Urine Ph 7.0 Pr [facility] External Poct Urine Protein Negative [facility] Interpretation and review of laboratory results Abnormal [facility] URINE CULTUREon 09-07-2023 Bacteria identified Cx Nom (U) SPECIMEN NOTES URINE RECEIVED WITHOUT PRESERVATIVE CULTURE RESULTS <10,000 ORGANISMS/ML NORMAL URO GENITAL ZANDER Normal [facility] Comment on above: Performed By: #### 6 30-4 #### [facility] ([id number]) [address], [address] [place] [address] BASIC METABOLIC PANLon 08-25 Anion gap [Moles/Vol] 7 mmol/L Normal 5-15 [facility] Comment on above: Performed By: #### C BCA, BMP #### [facility] ([id number]) [address], [address] [place] [address] Calcium [Mass/Vol] 8.5 mg/dL Normal 8.5-10.5 [place] Comment on above: Performed By: #### C BCA, BMP #### [facility] ([id number]) [address], [address] [place] [address] Chloride [Moles/Vol] 107 mmol/L Normal 98-109 [facility] Comment on above: Performed By: #### C BCA, BMP #### [facility] ([id number]) [address] [place] [address] CO2 [Moles/Vol] 27 mmol/L Normal 22-32 [facility] Comment on above: Performed By: #### C BCA, BMP #### [facility] ([id number]) [address], [address] [place] [address] Creatinine [Mass/Vol] 0.73 mg/dL Normal 0.40-1.00 [facility] Comment on above: Result Comment: METH OD TRACEABLE TO IDMS STANDARD Performed By: #### C BCA, BMP #### [facility] ([id number]) [address], [address] [place] [address] eGFR (CKD-EPI) NON-RACE DEPENDENT >90 Normal >59 [facility] Comment on above: Result Comment: Reported eGFR is based on the CKD-EPI 2020 equation that does not use a race coefficient. Performed By: #### C BCA, BMP #### [facility] ([id number]) [address] [place] [address] Glucose [Mass/Vol] 79 mg/dL Normal 65-99 [place] Comment on above: Performed By: #### C BCA, BMP #### [facility] ([id number]) [address], [address] [place] [address] Potassium [Moles/Vol] 3.3 mmol/L Low 3.5-5.0 [facility] Comment on above: Performed By: #### C BCA, BMP #### [facility] ([id number]) [address], [address] [place] [address] Sodium [Moles/Vol] 141 mmol/L Normal 134-146 [place] Comment on above: Performed By: #### C BCA, BMP #### [facility] ([id number]) [address], [address] [place] [address] Urea nitrogen [Mass/Vol] 8 mg/dL Normal 5-23 [facility] Comment on above: Performed By: #### C SLAVA, BMP #### [facility] ([id number]) [address], [address] [place] [address] CBC AND AUTO DIFFon 08-26-19 24 ABSOLUTE BASOPHIL 0.0 X10E9/L Normal 0.0-0.2 [place] Comment on above: Performed By: #### C SLAVA, BMP #### [facility] ([id number]) [address], [address] [place] [address] ABSOLUTE NEUTROPHIL 2.7 X10E9/L Normal 1.5-6.6 [facility] Comment on above: Performed By: #### C SLAVA, BMP #### [facility] ([id number]) [address], [address] [place] [address] Basophils/100 WBC (Bld) 0.6 % Normal [facility] Comment on above: Performed By: #### C SLAVA, BMP #### [facility] ([id number]) [address], [address] [place] [address] Eosinophils (Bld) [#/Vol] 0.1 10*3/uL Normal 0.0-0.4 [facility] Comment on above: Performed By: #### C SLAVA, BMP #### [facility] ([id number]) [address], [address] [place] [address] Eosinophils/100 WBC (Bld) 2.3 % Normal [facility] Comment on above: Performed By: #### C SLAVA, BMP #### [facility] ([id number]) [address], [address] [place] [address] Erythrocyte distribution width (RBC) [Ratio] 13.9 % Normal 11.5-15.0 [facility] Comment on above: Performed By: #### C SLAVA, BMP #### [facility] ([id number]) [address], [address] [place] [address] Hematocrit (Bld) [Volume fraction] 33.1 % Low 35-47 [facility] Comment on above: Performed By: #### C BCA, BMP #### [facility] ([id number]) [address], [address] [place] [address] Hemoglobin (Bld) [Mass/Vol] 11.1 g/dL Low 11.7-15.5 [facility] Comment on above: Performed By: #### C SLAVA, BMP #### [facility] ([id number]) [address], [address] [place] [address] Lymphocytes (Bld) [#/Vol] 2.0 10*3/uL Normal 1.0-3.5 [facility] Comment on above: Performed By: #### C SLAVA, BMP #### [facility] ([id number]) [address], [address] [place] [address] Lymphocytes/100 WBC (Bld) 36.7 % Normal [facility] Comment on above: Performed By: #### C SLAVA, BMP #### [facility] ([id number]) [address], [address] [place] [address] MCH (RBC) [Entitic mass] 28.7 pg Normal 27-34 [facility] Comment on above: Performed By: #### C BCA, BMP #### [facility] ([id number]) [address], [address] [place] [address] MCHC (RBC) [Mass/Vol] 33.4 g/dL Normal 32-36 [facility] Comment on above: Performed By: #### C BCA, BMP #### [facility] ([id number]) [address], [address] [place] [address] MCV (RBC) [Entitic vol] 86 fL Normal 80-100 [facility] Comment on above: Performed By: #### C BCA, BMP #### [facility] ([id number]) [address], [address] [place] [address] Monocytes (Bld) [#/Vol] 0.6 10*3/uL Normal 0-0.9 [facility] Comment on above: Performed By: #### C BCA, BMP #### [facility] ([id number]) [address], [address] [place] [address] Monocytes/100 WBC (Bld) 10.4 % Normal [facility] Comment on above: Performed By: #### C BCA, BMP #### [facility] ([id number]) [address], [address] [place] [address] Neutrophils/100 WBC (Bld) 50.0 % Normal [facility] Comment on above: Performed By: #### C BCA, BMP #### [facility] ([id number]) [address], [address] [place] [address] Platelet mean volume (Bld) [Entitic vol] 8.1 fL Normal 7-12 [facility] Comment on above: Performed By: #### C BCA, BMP #### [facility] ([id number]) [address], [address] [place] [address] Platelets (Bld) [#/Vol] 184 10*3/uL Normal 150-450 [facility] Comment on above: Performed By: #### C BCA, BMP #### [facility] ([id number]) [address], [address] [place] [address] RBC COUNT 3.86 X10E12/L Normal 3.80-5.20 [facility] Comment on above: Performed By: #### C BCA, BMP #### [facility] ([id number]) [address], [address] [place] [address] WBC (Bld) [#/Vol] 5.4 10*3/uL Normal 4.0-11.0 [place] Comment on above: Performed By: #### C SLAVA, ELKE #### [facility] ([id number]) [address] [place] [address] Glucose Glucometer (BldC) [M ass/Vol]on 08-26-2023 Glucose [Mass/Vol] 108 mg/dL High 65-99 [place] Glucose [Mass/Vol] 80 mg/dL Normal 65-99 [place] Glucose [Mass/Vol] 83 mg/dL Normal 65-99 [place] Alanine aminotransferase [En zymatic activity/volume] in Serum or PlasmaOrdered By: Som Fiore on 05-12-2023 ALT [Catalytic activity/Vol] 8 U/L 7-52 [facility] Albumin [Mass/volume] in Ser um or Plasma by Bromocresol green (BCG) dye binding methoOrdered By: Som Fiore on 05-12-2023 Albumin BCG dye [Mass/Vol] 4.6 g/dL 3.5-5.7 [facility] Alkaline phosphatase [Enzyma tic activity/volume] in Serum or PlasmaOrdered By: Som Fiore on 05-12-2023 ALP [Catalytic activity/Vol] 56 U/L 34-104 [facility] Aspartate aminotransferase [ Enzymatic activity/volume] in Serum or PlasmaOrdered By: Som Fiore on 05-12-2023 AST [Catalytic activity/Vol] 14 U/L 13-39 [facility] Automated erythrocytes count in urine sediment (number/area)Ordered By: Som Fiore on 05-12-2023 RBC Auto (Urine sed) [#/Area] 5-9 [HPF] 0-4 [facility] Automated leukocytes count i n urine sediment (number/area)Ordered By: Som Fiore on 05-12-2023 WBC Auto (Urine sed) [#/Area] 5-9 [HPF] 0-4 [facility] Basophils Auto (Bld) [#/Vol] Ordered By: Som Fiore on 05-12-2023 Basophils (Bld) [#/Vol] 0.0 10*3/uL 0.0-0.2 [facility] Basophils/100 WBC Auto (Bld) Ordered By: Som Fiore on 05-12-2023 Basophils/100 WBC (Bld) 0.5 % . [facility] Bilirubin Test strip Ql (U)O rdered By: Som Fiore on 05-12-2023 Bilirubin Ql (U) Negative Negative [facility] Bilirubin.total [Mass/volume ] in Serum or PlasmaOrdered By: Som Fiore on 05-12-2023 Bilirubin [Mass/Vol] 0.4 mg/dL 0.3-1.0 [facility] Calcium [Mass/volume] in Ser um or PlasmaOrdered By: Som Fiore on 05-12-2023 Calcium [Mass/Vol] 9.4 mg/dL 8.6-10.3 [facility] Carbon dioxide, total [Moles /volume] in Serum or PlasmaOrdered By: Som Fiore on 05-12-2023 CO2 [Moles/Vol] 28.5 mmol/L 21.0-31.0 [facility] Chloride [Moles/volume] in S alexis or PlasmaOrdered By: Som Fiore on 05-12-2023 Chloride [Moles/Vol] 105 mmol/L 98-107 [facility] Color Auto (U)Ordered By: Giovanni Fiore on 05-12-2023 Color (U) Yellow Yellow [facility] Creatinine [Mass/volume] in Serum or PlasmaOrdered By: Som Fiore on 05-12-2023 Creatinine [Mass/Vol] 0.85 mg/dL 0.60-1.20 [facility] Eosinophils Auto (Bld) [#/Vo l]Ordered By: Som Fiore on 05-12-2023 Eosinophils (Bld) [#/Vol] 0.0 10*3/uL 0.0-0.45 [facility] Eosinophils/100 WBC Auto (Bl d)Ordered By: Som Fiore on 05-12-2023 Eosinophils/100 WBC (Bld) 0.5 % . [facility] Erythrocyte distribution wid th Auto (RBC) [Ratio]Ordered By: Som Fiore on 05-12-2023 Erythrocyte distribution width (RBC) [Ratio] 14.2 % 11.9-15.3 [facility] Globulin Calc (S) [Mass/Vol] Ordered By: Som Fiore on 05-12-2023 Globulin (S) [Mass/Vol] 3.1 g/dL [facility] Glucose [Mass/volume] in Ser um or PlasmaOrdered By: Som Fiore on 05-12-2023 Glucose [Mass/Vol] 95 mg/dL 70-100 [facility] Comment on above: ADA recommended refe rence rangeRandom Glucose Reference Range is dependent on time and content of last meal. Glucose of more than 200 mg/dL in a nonstressed, ambulatory subject supports the diagnosis of Diabetes Mellitus. HCG ( test) IA.rapi d Ql (U)Ordered By: Som Fiore on 05-12-2023 HCG ( test) Ql (U) Negative [facility] Hematocrit Auto (Bld) [Volum e fraction]Ordered By: Som Fiore on 05-12-2023 Hematocrit (Bld) [Volume fraction] 38.0 % 34.0-46.4 [facility] Hemoglobin [Mass/volume] in BloodOrdered By: Som Fiore on 05-12-2023 Hemoglobin (Bld) [Mass/Vol] 12.8 g/dL 11.8-15.4 [facility] Ketones Auto test strip (U) [Mass/Vol]Ordered By: Som Fiore on 05-12-2023 Ketones (U) [Mass/Vol] Trace Negative [facility] - UrinalysisOrder ed By: Som Fiore on 05-12-2023 Hyaline casts LM Ql (Urine sed) 0-8 [LPF] 0-8 [facility] Leukocytes [#/volume] correc manjula for nucleated erythrocytes in Blood by Automated counOrdered By: Som Fiore on 05-12-2023 WBC corrected for nucl RBC Auto (Bld) [#/Vol] 9.1 10*3/uL 3.8-11.6 [facility] Lymphocytes Auto (Bld) [#/Vo l]Ordered By: Som Fiore on 05-12-2023 Lymphocytes (Bld) [#/Vol] 3.2 10*3/uL 1.00-4.8 [facility] Lymphocytes/100 WBC Auto (Bl d)Ordered By: Som Fiore on 05-12-2023 Lymphocytes/100 WBC (Bld) 35.0 % . [facility] MCH Auto (RBC) [Entitic mass ]Ordered By: Som Fiore on 05-12-2023 MCH (RBC) [Entitic mass] 28.4 pg 24.7-34.3 [facility] MCHC Auto (RBC) [Mass/Vol]Or dered By: Som Fiore on 05-12-2023 MCHC (RBC) [Mass/Vol] 33.7 g/dL 32.0-35.0 [facility] MCV Auto (RBC) [Entitic vol] Ordered By: Som Fiore on 05-12-2023 MCV (RBC) [Entitic vol] 84.2 fL 80-100 [facility] Monocyte distribution width [Entitic volume] in Blood by AutomatedOrdered By: Som Fiore on 05-12-2023 Monocyte distribution width Auto (Bld) [Entitic vol] 19.05 % 0.00-20.00 [facility] Monocytes Auto (Bld) [#/Vol] Ordered By: Som Fiore on 05-12-2023 Monocytes (Bld) [#/Vol] 0.5 10*3/uL 0.0-0.8 [facility] Monocytes/100 WBC Auto (Bld) Ordered By: Som Fiore on 05-12-2023 Monocytes/100 WBC (Bld) 5.1 % . [facility] Neutrophils Auto (Bld) [#/Vo l]Ordered By: Som Fiore on 05-12-2023 Neutrophils (Bld) [#/Vol] 5.4 10*3/uL 1.8-7.7 [facility] Neutrophils/100 WBC Auto (Bl d)Ordered By: Som Fiore on 05-12-2023 Neutrophils/100 WBC (Bld) 58.9 % . [facility] Nitrite Test strip Ql (U)Ord ered By: Som Fiore on 05-12-2023 Nitrite Ql (U) Negative Negative [facility] No Panel InformationOrdered By: Som Fiore on 05-12-2023 Estimated GFR (CKD-EPI) > 60.0 mL/Min [facility] Creatinine Clearance (Chem 79.00 [facility] Nucleated erythrocytes [Pres ence] in Blood by Automated countOrdered By: Som Fiore on 05-12-2023 Nucleated RBC Auto Ql (Bld) 0.1 /100{WBC} 0-0.5 [facility] Platelet mean volume Auto (B ld) [Entitic vol]Ordered By: Som Fiore on 05-12-2023 Platelet mean volume (Bld) [Entitic vol] 7.6 fL 6.3-10.7 [facility] Platelets Auto (Bld) [#/Vol] Ordered By: Som Fiore on 05-12-2023 Platelets (Bld) [#/Vol] 280 10*3/uL 150-450 [facility] Potassium [Moles/volume] in Serum or PlasmaOrdered By: Som Fiore on 05-12-2023 Potassium [Moles/Vol] 4.0 mmol/L 3.5-5.1 [facility] Protein Auto test strip (U) [Mass/Vol]Ordered By: Som Fiore on 05-12-2023 Protein (U) [Mass/Vol] Negative Negative [facility] Protein [Mass/volume] in Ser um or PlasmaOrdered By: Som Fiore on 05-12-2023 Protein [Mass/Vol] 7.7 g/dL 6.4-8.9 [facility] RBC Auto (Bld) [#/Vol]Ordere d By: Som Fiore on 05-12-2023 RBC (Bld) [#/Vol] 4.51 10*6/uL 3.60-5.00 [facility] Serum or plasma albumin/glob ulin mass ratioOrdered By: Som Fiore on 05-12-2023 Albumin/Globulin [Mass ratio] 1.5 {ratio} [facility] Serum or plasma anion gap de terminationOrdered By: Som Fiore on 05-12-2023 Anion gap [Moles/Vol] TNP [facility] Comment on above: Test not performed Sodium [Moles/volume] in Ser um or PlasmaOrdered By: Som Fiore on 05-12-2023 Sodium [Moles/Vol] 140 mmol/L 136-145 [facility] Specific gravity Auto test s trip (U) [Rel density]Ordered By: Som Fiore on 05-12-2023 Specific gravity (U) [Rel density] 1.022 1.001-1.03 0 [facility] Squamous epithelial cells de tection in urine sediment by light microscopyOrdered By: Som Fiore on 05-12-2023 Epithelial cells.squamous LM Ql (Urine sed) 5-9 [HPF] 0-2 [facility] Urea nitrogen [Mass/volume] in Serum or PlasmaOrdered By: Som Fiore on 05-12-2023 Urea nitrogen [Mass/Vol] 11 mg/dL 7-25 [facility] Urine bacteria detection by automated methodOrdered By: Som Fiore on 05-12-2023 Bacteria Auto Ql (U) 1+ None [facility] Urine clarity by refractomet ry automatedOrdered By: Som Fiore on 05-12-2023 Clarity Refractometry automated (U) Cloudy Clear [facility] Urine glucose measurement by automated test strip (mass/volume)Ordered By: Som Fiore on 05-12-2023 Glucose Auto test strip (U) [Mass/Vol] Normal mg/dL Normal [facility] Urine hemoglobin detection b y automated test stripOrdered By: Som Fiore on 05-12-2023 Hemoglobin Auto test strip Ql (U) Trace Negative [facility] Urine leukocyte esterase det ection by automated test stripOrdered By: Som Fiore on 05-12-2023 Leukocyte esterase Auto test strip Ql (U) Negative Negative [facility] Urobilinogen Auto test strip (U) [Mass/Vol]Ordered By: Som Fiore on 05-12-2023 Urobilinogen (U) [Mass/Vol] Normal mg/dL Normal [facility] WBC Auto (Bld) [#/Vol]Ordere d By: Som Fiore on 05-12-2023 WBC (Bld) [#/Vol] 9.1 10*3/uL 3.8-11.6 [facility] pH Auto test strip (U)Ordere d By: Som Fiore on 05-12-2023 pH (U) 7.0 [pH] 5.0-9.0 [facility] Alanine aminotransferase [En zymatic activity/volume] in Serum or PlasmaOrdered By: Pipe Jose on 04-12-2023 ALT [Catalytic activity/Vol] 8 U/L 7-52 [facility] Albumin [Mass/volume] in Ser um or Plasma by Bromocresol green (BCG) dye binding methoOrdered By: Pipe Jose on 04-12-2023 Albumin BCG dye [Mass/Vol] 4.9 g/dL 3.5-5.7 [facility] Alkaline phosphatase [Enzyma tic activity/volume] in Serum or PlasmaOrdered By: Pipe Jose on 04-12-2023 ALP [Catalytic activity/Vol] 69 U/L 34-104 [facility] Aspartate aminotransferase [ Enzymatic activity/volume] in Serum or PlasmaOrdered By: Pipe Jose on 04-12-2023 AST [Catalytic activity/Vol] 18 U/L 13-39 [facility] Basophils Auto (Bld) [#/Vol] Ordered By: Pipe Jose on 04-12-2023 Basophils (Bld) [#/Vol] 0.0 10*3/uL 0.0-0.2 [facility] Basophils/100 WBC Auto (Bld) Ordered By: Pipe Jose on 04-12-2023 Basophils/100 WBC (Bld) 0.4 % . [facility] Bilirubin.total [Mass/volume ] in Serum or PlasmaOrdered By: Pipe Jose on 04-12-2023 Bilirubin [Mass/Vol] 0.3 mg/dL 0.3-1.0 [facility] Calcium [Mass/volume] in Ser um or PlasmaOrdered By: Pipe Jose on 04-12-2023 Calcium [Mass/Vol] 9.9 mg/dL 8.6-10.3 [facility] Carbon dioxide, total [Moles /volume] in Serum or PlasmaOrdered By: Pipe Jose on 04-12-2023 CO2 [Moles/Vol] 27.5 mmol/L 21.0-31.0 [facility] Chloride [Moles/volume] in S alexis or PlasmaOrdered By: Pipe Jose on 04-12-2023 Chloride [Moles/Vol] 104 mmol/L 98-107 [facility] Creatinine [Mass/volume] in Serum or PlasmaOrdered By: Pipe Jose on 04-12-2023 Creatinine [Mass/Vol] 0.91 mg/dL 0.60-1.20 [facility] Eosinophils Auto (Bld) [#/Vo l]Ordered By: Pipe Jose on 04-12-2023 Eosinophils (Bld) [#/Vol] 0.0 10*3/uL 0.0-0.45 [facility] Eosinophils/100 WBC Auto (Bl d)Ordered By: Pipe Jose on 04-12-2023 Eosinophils/100 WBC (Bld) 0.5 % . [facility] Erythrocyte distribution wid th Auto (RBC) [Ratio]Ordered By: Pipe Jose on 04-12-2023 Erythrocyte distribution width (RBC) [Ratio] 14.8 % 11.9-15.3 [facility] Globulin Calc (S) [Mass/Vol] Ordered By: Pipe Jose on 04-12-2023 Globulin (S) [Mass/Vol] 3.5 g/dL [facility] Glucose [Mass/volume] in Ser um or PlasmaOrdered By: Pipe Jose on 04-12-2023 Glucose [Mass/Vol] 92 mg/dL 70-100 [facility] Comment on above: ADA recommended refe rence rangeRandom Glucose Reference Range is dependent on time and content of last meal. Glucose of more than 200 mg/dL in a nonstressed, ambulatory subject supports the diagnosis of Diabetes Mellitus. Hematocrit Auto (Bld) [Volum e fraction]Ordered By: Pipe Jose on 04-12-2023 Hematocrit (Bld) [Volume fraction] 40.6 % 34.0-46.4 [facility] Hemoglobin [Mass/volume] in BloodOrdered By: Pipe Jose on 04-12-2023 Hemoglobin (Bld) [Mass/Vol] 13.5 g/dL 11.8-15.4 [facility] Leukocytes [#/volume] correc manjula for nucleated erythrocytes in Blood by Automated counOrdered By: Pipe Jose on 04-12-2023 WBC corrected for nucl RBC Auto (Bld) [#/Vol] 9.7 10*3/uL 3.8-11.6 [facility] Lymphocytes Auto (Bld) [#/Vo l]Ordered By: Pipe Jose on 04-12-2023 Lymphocytes (Bld) [#/Vol] 2.5 10*3/uL 1.00-4.8 [facility] Lymphocytes/100 WBC Auto (Bl d)Ordered By: Pipe Jose on 04-12-2023 Lymphocytes/100 WBC (Bld) 25.4 % . [facility] MCH Auto (RBC) [Entitic mass ]Ordered By: Pipe Jose on 04-12-2023 MCH (RBC) [Entitic mass] 28.2 pg 24.7-34.3 [facility] MCHC Auto (RBC) [Mass/Vol]Or dered By: Pipe Jose on 04-12-2023 MCHC (RBC) [Mass/Vol] 33.3 g/dL 32.0-35.0 [facility] MCV Auto (RBC) [Entitic vol] Ordered By: Pipe Jose on 04-12-2023 MCV (RBC) [Entitic vol] 84.9 fL 80-100 [facility] Monocyte distribution width [Entitic volume] in Blood by AutomatedOrdered By: Pipe Jose on 04-12-2023 Monocyte distribution width Auto (Bld) [Entitic vol] 15.89 % 0.00-20.00 [facility] Monocytes Auto (Bld) [#/Vol] Ordered By: Pipe Jose on 04-12-2023 Monocytes (Bld) [#/Vol] 0.5 10*3/uL 0.0-0.8 [facility] Monocytes/100 WBC Auto (Bld) Ordered By: Pipe Jose on 04-12-2023 Monocytes/100 WBC (Bld) 5.6 % . [facility] Neutrophils Auto (Bld) [#/Vo l]Ordered By: Pipe Jose on 04-12-2023 Neutrophils (Bld) [#/Vol] 6.6 10*3/uL 1.8-7.7 [facility] Neutrophils/100 WBC Auto (Bl d)Ordered By: Pipe Jose on 04-12-2023 Neutrophils/100 WBC (Bld) 68.1 % . [facility] No Panel InformationOrdered By: Pipe Jose on 04-12-2023 Estimated GFR (CKD-EPI) > 60.0 mL/Min [facility] Creatinine Clearance (Chem 73.79 [facility] Nucleated erythrocytes [Pres ence] in Blood by Automated countOrdered By: Pipe Jose on 04-12-2023 Nucleated RBC Auto Ql (Bld) 0.1 /100{WBC} 0-0.5 [facility] Platelet mean volume Auto (B ld) [Entitic vol]Ordered By: Pipe Jose on 04-12-2023 Platelet mean volume (Bld) [Entitic vol] 7.7 fL 6.3-10.7 [facility] Platelets Auto (Bld) [#/Vol] Ordered By: Pipe Jose on 04-12-2023 Platelets (Bld) [#/Vol] 307 10*3/uL 150-450 [facility] Potassium [Moles/volume] in Serum or PlasmaOrdered By: Pipe Jose on 04-12-2023 Potassium [Moles/Vol] 4.1 mmol/L 3.5-5.1 [facility] Protein [Mass/volume] in Ser um or PlasmaOrdered By: Pipe Jose on 04-12-2023 Protein [Mass/Vol] 8.4 g/dL 6.4-8.9 [facility] RBC Auto (Bld) [#/Vol]Ordere d By: Pipe Jose on 04-12-2023 RBC (Bld) [#/Vol] 4.78 10*6/uL 3.60-5.00 [facility] Serum or plasma albumin/glob ulin mass ratioOrdered By: Pipe Jose on 04-12-2023 Albumin/Globulin [Mass ratio] 1.4 {ratio} [facility] Serum or plasma anion gap de terminationOrdered By: Pipe Jose on 04-12-2023 Anion gap [Moles/Vol] 13.6 mmol/L 6.0-15.0 [facility] Sodium [Moles/volume] in Ser um or PlasmaOrdered By: Pipe Jose on 04-12-2023 Sodium [Moles/Vol] 141 mmol/L 136-145 [facility] Urea nitrogen [Mass/volume] in Serum or PlasmaOrdered By: Pipe Jose on 04-12-2023 Urea nitrogen [Mass/Vol] 9 mg/dL 7-25 [facility] WBC Auto (Bld) [#/Vol]Ordere d By: Pipe Jose on 04-12-2023 WBC (Bld) [#/Vol] 9.7 10*3/uL 3.8-11.6 [facility] Alanine aminotransferase [En zymatic activity/volume] in Serum or PlasmaOrdered By: Milton Rivera on 03-23-2023 ALT [Catalytic activity/Vol] 8 U/L 7-52 [facility] Albumin [Mass/volume] in Ser um or Plasma by Bromocresol green (BCG) dye binding methoOrdered By: Milton Rivera on 03-23-2023 Albumin BCG dye [Mass/Vol] 4.9 g/dL 3.5-5.7 [facility] Alkaline phosphatase [Enzyma tic activity/volume] in Serum or PlasmaOrdered By: Milton Rivera on 03-23-2023 ALP [Catalytic activity/Vol] 59 U/L 34-104 [facility] Aspartate aminotransferase [ Enzymatic activity/volume] in Serum or PlasmaOrdered By: Milton Rivera on 03-23-2023 AST [Catalytic activity/Vol] 20 U/L 13-39 [facility] Basophils Auto (Bld) [#/Vol] Ordered By: Milton Rivera on 03-23-2023 Basophils (Bld) [#/Vol] 0.0 10*3/uL 0.0-0.2 [facility] Basophils/100 WBC Auto (Bld) Ordered By: Milton Rivera on 03-23-2023 Basophils/100 WBC (Bld) 0.5 % . [facility] Bilirubin.total [Mass/volume ] in Serum or PlasmaOrdered By: Milton Rivera on 03-23-2023 Bilirubin [Mass/Vol] 0.4 mg/dL 0.3-1.0 [facility] Calcium [Mass/volume] in Ser um or PlasmaOrdered By: Milton Rivera on 03-23-2023 Calcium [Mass/Vol] 9.6 mg/dL 8.6-10.3 [facility] Carbon dioxide, total [Moles /volume] in Serum or PlasmaOrdered By: Milton Rivera on 03-23-2023 CO2 [Moles/Vol] 21.8 mmol/L 21.0-31.0 [facility] Chloride [Moles/volume] in S alexis or PlasmaOrdered By: Milton Rivera on 03-23-2023 Chloride [Moles/Vol] 105 mmol/L 98-107 [facility] Creatine kinase [Enzymatic a ctivity/volume] in Serum or PlasmaOrdered By: Milton Rivera on 03-23-2023 CK [Catalytic activity/Vol] 45 U/L 30-223 [facility] Creatinine [Mass/volume] in Serum or PlasmaOrdered By: Milton Rivera on 03-23-2023 Creatinine [Mass/Vol] 0.79 mg/dL 0.60-1.20 [facility] Eosinophils Auto (Bld) [#/Vo l]Ordered By: Milton Rivera on 03-23-2023 Eosinophils (Bld) [#/Vol] 0.0 10*3/uL 0.0-0.45 [facility] Eosinophils/100 WBC Auto (Bl d)Ordered By: Milton Rivera on 03-23-2023 Eosinophils/100 WBC (Bld) 0.4 % . [facility] Erythrocyte distribution wid th Auto (RBC) [Ratio]Ordered By: Milton Rivera on 03-23-2023 Erythrocyte distribution width (RBC) [Ratio] 15.2 % 11.9-15.3 [facility] Globulin Calc (S) [Mass/Vol] Ordered By: Milton Rivera on 03-23-2023 Globulin (S) [Mass/Vol] 3.2 g/dL [facility] Glucose Glucometer (BldC) [M ass/Vol]Ordered By: CRISTIANE SHARMA on 03-23-2023 Glucose [Mass/Vol] 88 mg/dL [facility] Comment on above: Random Glucose Refer ence Range is dependent on time and content of last meal. Glucose of more than 200 mg/dL in a nonstressed, ambulatory subject supports the diagnosis of Diabetes Mellitus. Glucose [Mass/volume] in Ser um or PlasmaOrdered By: Milton Rivera on 03-23-2023 Glucose [Mass/Vol] 81 mg/dL 70-100 [facility] Comment on above: ADA recommended refe rence rangeRandom Glucose Reference Range is dependent on time and content of last meal. Glucose of more than 200 mg/dL in a nonstressed, ambulatory subject supports the diagnosis of Diabetes Mellitus. Hematocrit Auto (Bld) [Volum e fraction]Ordered By: Milton Rivera on 03-23-2023 Hematocrit (Bld) [Volume fraction] 41.0 % 34.0-46.4 [facility] Hemoglobin [Mass/volume] in BloodOrdered By: Milton Rivera on 03-23-2023 Hemoglobin (Bld) [Mass/Vol] 13.8 g/dL 11.8-15.4 [facility] Lactate [Moles/volume] in Se rum or PlasmaOrdered By: Milton Rivera on 03-23-2023 Lactate [Moles/Vol] 0.8 mmol/L 0.5-2.2 [facility] Leukocytes [#/volume] correc manjula for nucleated erythrocytes in Blood by Automated counOrdered By: Milton Rivera on 03-23-2023 WBC corrected for nucl RBC Auto (Bld) [#/Vol] 8.9 10*3/uL 3.8-11.6 [facility] Lymphocytes Auto (Bld) [#/Vo l]Ordered By: Milton Rivera on 03-23-2023 Lymphocytes (Bld) [#/Vol] 3.3 10*3/uL 1.00-4.8 [facility] Lymphocytes/100 WBC Auto (Bl d)Ordered By: Milton Rivera on 03-23-2023 Lymphocytes/100 WBC (Bld) 37.2 % . [facility] MCH Auto (RBC) [Entitic mass ]Ordered By: Milton Rivera on 03-23-2023 MCH (RBC) [Entitic mass] 28.8 pg 24.7-34.3 [facility] MCHC Auto (RBC) [Mass/Vol]Or dered By: Milton Rivera on 03-23-2023 MCHC (RBC) [Mass/Vol] 33.5 g/dL 32.0-35.0 [facility] MCV Auto (RBC) [Entitic vol] Ordered By: Milton Rivera on 03-23-2023 MCV (RBC) [Entitic vol] 85.9 fL 80-100 [facility] Monocyte distribution width [Entitic volume] in Blood by AutomatedOrdered By: Milton Rivera on 03-23-2023 Monocyte distribution width Auto (Bld) [Entitic vol] 21.12 % 0.00-20.00 [facility] Comment on above: For adults in ED, MD W > 20.0 may be associated with a higher risk of sepsis during the first 12 hrs of hospital admission Monocytes Auto (Bld) [#/Vol] Ordered By: Milton Rivera on 03-23-2023 Monocytes (Bld) [#/Vol] 0.6 10*3/uL 0.0-0.8 [facility] Monocytes/100 WBC Auto (Bld) Ordered By: Milton Rivera on 03-23-2023 Monocytes/100 WBC (Bld) 6.9 % . [facility] Neutrophils Auto (Bld) [#/Vo l]Ordered By: Milton Rivera on 03-23-2023 Neutrophils (Bld) [#/Vol] 4.9 10*3/uL 1.8-7.7 [facility] Neutrophils/100 WBC Auto (Bl d)Ordered By: Milton Rivera on 03-23-2023 Neutrophils/100 WBC (Bld) 55.0 % . [facility] No Panel InformationOrdered By: Margarita Gallo on 03-23-2023 Lamotrigine (Lamictal) Level 2.0 ug/mL 2.0-20.0 [facility] Comment on above: Detection Limit = 1. 0Performed at: [facility] - [facility] [address] [id number] Director: Sina Hills MD, Phone: [phone] Levetiracetam (Keppra) Level 15.5 ug/mL 10.0-40.0 [facility] Comment on above: Performed at: [facility] [place] [id number] Director: Sina Hills MD, Phone: [phone] No Panel InformationOrdered By: PROVIDER TEMP on 03-23-2023 Bedside Glucose Comment Glu2: cleaned meter [facility] No Panel InformationOrdered By: Milton Rivera on 03-23-2023 Estimated GFR (CKD-EPI) > 60.0 mL/Min [facility] Creatinine Clearance (Chem 85.00 [facility] Nucleated erythrocytes [Pres ence] in Blood by Automated countOrdered By: Milton Rivera on 03-23-2023 Nucleated RBC Auto Ql (Bld) 0.1 /100{WBC} 0-0.5 [facility] Platelet mean volume Auto (B ld) [Entitic vol]Ordered By: Milton Rivera on 03-23-2023 Platelet mean volume (Bld) [Entitic vol] 8.6 fL 6.3-10.7 [facility] Platelets Auto (Bld) [#/Vol] Ordered By: Milton Rivera on 03-23-2023 Platelets (Bld) [#/Vol] 257 10*3/uL 150-450 [facility] Potassium [Moles/volume] in Serum or PlasmaOrdered By: Milton Rivera on 03-23-2023 Potassium [Moles/Vol] 4.3 mmol/L 3.5-5.1 [facility] Prolactin [Mass/volume] in S alexis or PlasmaOrdered By: Milton Rivera on 03-23-2023 Prolactin [Mass/Vol] 23.65 ng/mL 3.34-26.72 [facility] Protein [Mass/volume] in Ser um or PlasmaOrdered By: Milton Rivera on 03-23-2023 Protein [Mass/Vol] 8.1 g/dL 6.4-8.9 [facility] RBC Auto (Bld) [#/Vol]Ordere d By: Milton Rivera on 03-23-2023 RBC (Bld) [#/Vol] 4.78 10*6/uL 3.60-5.00 [facility] Serum or plasma albumin/glob ulin mass ratioOrdered By: Milton Rivera on 03-23-2023 Albumin/Globulin [Mass ratio] 1.5 {ratio} [facility] Serum or plasma anion gap de terminationOrdered By: Milton Rivera on 03-23-2023 Anion gap [Moles/Vol] 16.5 mmol/L 6.0-15.0 [facility] Sodium [Moles/volume] in Ser um or PlasmaOrdered By: Milton Rivera on 03-23-2023 Sodium [Moles/Vol] 139 mmol/L 136-145 [facility] Urea nitrogen [Mass/volume] in Serum or PlasmaOrdered By: Milton Rivera on 03-23-2023 Urea nitrogen [Mass/Vol] 12 mg/dL 7-25 [facility] WBC Auto (Bld) [#/Vol]Ordere d By: Milton Rivera on 03-23-2023 WBC (Bld) [#/Vol] 8.9 10*3/uL 3.8-11.6 [facility] Alanine aminotransferase [En zymatic activity/volume] in Serum or PlasmaOrdered By: Som Fiore on 03-11-2023 ALT [Catalytic activity/Vol] 6 U/L 7-52 [facility] Albumin [Mass/volume] in Ser um or Plasma by Bromocresol green (BCG) dye binding methoOrdered By: Som Fiore on 03-11-2023 Albumin BCG dye [Mass/Vol] 4.5 g/dL 3.5-5.7 [facility] Alkaline phosphatase [Enzyma tic activity/volume] in Serum or PlasmaOrdered By: Som Fiore on 03-11-2023 ALP [Catalytic activity/Vol] 55 U/L 34-104 [facility] Aspartate aminotransferase [ Enzymatic activity/volume] in Serum or PlasmaOrdered By: Som Fiore on 03-11-2023 AST [Catalytic activity/Vol] 14 U/L 13-39 [facility] Automated erythrocytes count in urine sediment (number/area)Ordered By: Som Fiore on 03-11-2023 RBC Auto (Urine sed) [#/Area] 3-4 [HPF] 0-4 [facility] Automated leukocytes count i n urine sediment (number/area)Ordered By: Som Fiore on 03-11-2023 WBC Auto (Urine sed) [#/Area] 3-4 [HPF] 0-4 [facility] Basophils Auto (Bld) [#/Vol] Ordered By: Som Fiore on 03-11-2023 Basophils (Bld) [#/Vol] 0.0 10*3/uL 0.0-0.2 [facility] Basophils/100 WBC Auto (Bld) Ordered By: Som Fiore on 03-11-2023 Basophils/100 WBC (Bld) 0.5 % . [facility] Bilirubin Test strip Ql (U)O rdered By: Som Fiore on 03-11-2023 Bilirubin Ql (U) Negative Negative [facility] Bilirubin.total [Mass/volume ] in Serum or PlasmaOrdered By: Som Fiore on 03-11-2023 Bilirubin [Mass/Vol] 0.4 mg/dL 0.3-1.0 [facility] Calcium [Mass/volume] in Ser um or PlasmaOrdered By: Som Fiore on 03-11-2023 Calcium [Mass/Vol] 9.3 mg/dL 8.6-10.3 [facility] Carbon dioxide, total [Moles /volume] in Serum or PlasmaOrdered By: Som Fiore on 03-11-2023 CO2 [Moles/Vol] 23.3 mmol/L 21.0-31.0 [facility] Chloride [Moles/volume] in S alexis or PlasmaOrdered By: Som Fiore on 03-11-2023 Chloride [Moles/Vol] 107 mmol/L 98-107 [facility] Color Auto (U)Ordered By: Giovanni Fiore on 03-11-2023 Color (U) Yellow Yellow [facility] Creatinine [Mass/volume] in Serum or PlasmaOrdered By: Som Fiore on 03-11-2023 Creatinine [Mass/Vol] 0.91 mg/dL 0.60-1.20 [facility] Eosinophils Auto (Bld) [#/Vo l]Ordered By: Som Fiore on 03-11-2023 Eosinophils (Bld) [#/Vol] 0.0 10*3/uL 0.0-0.45 [facility] Eosinophils/100 WBC Auto (Bl d)Ordered By: Som Fiore on 03-11-2023 Eosinophils/100 WBC (Bld) 0.5 % . [facility] Erythrocyte distribution wid th Auto (RBC) [Ratio]Ordered By: Som Fiore on 03-11-2023 Erythrocyte distribution width (RBC) [Ratio] 15.3 % 11.9-15.3 [facility] Globulin Calc (S) [Mass/Vol] Ordered By: Som Fiore on 03-11-2023 Globulin (S) [Mass/Vol] 2.9 g/dL [facility] Glucose [Mass/volume] in Ser um or PlasmaOrdered By: Som Fiore on 03-11-2023 Glucose [Mass/Vol] 89 mg/dL 70-100 [facility] Comment on above: ADA recommended refe rence rangeRandom Glucose Reference Range is dependent on time and content of last meal. Glucose of more than 200 mg/dL in a nonstressed, ambulatory subject supports the diagnosis of Diabetes Mellitus. Hematocrit Auto (Bld) [Volum e fraction]Ordered By: Som Fiore on 03-11-2023 Hematocrit (Bld) [Volume fraction] 37.1 % 34.0-46.4 [facility] Hemoglobin [Mass/volume] in BloodOrdered By: Som Fiore on 03-11-2023 Hemoglobin (Bld) [Mass/Vol] 12.5 g/dL 11.8-15.4 [facility] Ketones Auto test strip (U) [Mass/Vol]Ordered By: Som Fiore on 03-11-2023 Ketones (U) [Mass/Vol] Negative Negative [facility] - UrinalysisOrder ed By: Som Fiore on 03-11-2023 Hyaline casts LM Ql (Urine sed) 0-8 [LPF] 0-8 [facility] Leukocytes [#/volume] correc manjula for nucleated erythrocytes in Blood by Automated counOrdered By: Som Fiore on 03-11-2023 WBC corrected for nucl RBC Auto (Bld) [#/Vol] 8.2 10*3/uL 3.8-11.6 [facility] Lymphocytes Auto (Bld) [#/Vo l]Ordered By: Som Fiore on 03-11-2023 Lymphocytes (Bld) [#/Vol] 2.0 10*3/uL 1.00-4.8 [facility] Lymphocytes/100 WBC Auto (Bl d)Ordered By: Som Fiore on 03-11-2023 Lymphocytes/100 WBC (Bld) 23.7 % . [facility] MCH Auto (RBC) [Entitic mass ]Ordered By: Som Fiore on 03-11-2023 MCH (RBC) [Entitic mass] 28.7 pg 24.7-34.3 [facility] MCHC Auto (RBC) [Mass/Vol]Or dered By: Som Fiore on 03-11-2023 MCHC (RBC) [Mass/Vol] 33.7 g/dL 32.0-35.0 [facility] MCV Auto (RBC) [Entitic vol] Ordered By: Som Fiore on 03-11-2023 MCV (RBC) [Entitic vol] 85.1 fL 80-100 [facility] Monocyte distribution width [Entitic volume] in Blood by AutomatedOrdered By: Som Firoe on 03-11-2023 Monocyte distribution width Auto (Bld) [Entitic vol] 17.06 % 0.00-20.00 [facility] Monocytes Auto (Bld) [#/Vol] Ordered By: Som Fiore on 03-11-2023 Monocytes (Bld) [#/Vol] 0.5 10*3/uL 0.0-0.8 [facility] Monocytes/100 WBC Auto (Bld) Ordered By: Som Fiore on 03-11-2023 Monocytes/100 WBC (Bld) 5.8 % . [facility] Neutrophils Auto (Bld) [#/Vo l]Ordered By: Som Fiore on 03-11-2023 Neutrophils (Bld) [#/Vol] 5.7 10*3/uL 1.8-7.7 [facility] Neutrophils/100 WBC Auto (Bl d)Ordered By: Som Fiore on 03-11-2023 Neutrophils/100 WBC (Bld) 69.5 % . [facility] Nitrite Test strip Ql (U)Ord ered By: Som Fiore on 03-11-2023 Nitrite Ql (U) Negative Negative [facility] No Panel InformationOrdered By: Som Fiore on 03-11-2023 Levetiracetam (Keppra) Level 30.8 ug/mL 10.0-40.0 [facility] Comment on above: Performed at: - [facility] [address] [id number] Director: Sina Hills MD, Phone: [phone] Estimated GFR (CKD-EPI) > 60.0 mL/Min [facility] Creatinine Clearance (Chem 65.12 [facility] Nucleated erythrocytes [Pres ence] in Blood by Automated countOrdered By: Som Fiore on 03-11-2023 Nucleated RBC Auto Ql (Bld) 0.0 /100{WBC} 0-0.5 [facility] Platelet mean volume Auto (B ld) [Entitic vol]Ordered By: Som Fiore on 03-11-2023 Platelet mean volume (Bld) [Entitic vol] 8.0 fL 6.3-10.7 [facility] Platelets Auto (Bld) [#/Vol] Ordered By: Som Fiore on 03-11-2023 Platelets (Bld) [#/Vol] 272 10*3/uL 150-450 [facility] Potassium [Moles/volume] in Serum or PlasmaOrdered By: Som Fiore on 03-11-2023 Potassium [Moles/Vol] 3.6 mmol/L 3.5-5.1 [facility] Protein Auto test strip (U) [Mass/Vol]Ordered By: Som Fiore on 03-11-2023 Protein (U) [Mass/Vol] Negative Negative Fi [facility] Protein [Mass/volume] in Ser um or PlasmaOrdered By: Som Firoe on 03-11-2023 Protein [Mass/Vol] 7.4 g/dL 6.4-8.9 [facility] RBC Auto (Bld) [#/Vol]Ordere d By: Som Fiore on 03-11-2023 RBC (Bld) [#/Vol] 4.36 10*6/uL 3.60-5.00 [facility] Serum or plasma albumin/glob ulin mass ratioOrdered By: Som Fiore on 03-11-2023 Albumin/Globulin [Mass ratio] 1.6 {ratio} [facility] Serum or plasma anion gap de terminationOrdered By: Som Fiore on 03-11-2023 Anion gap [Moles/Vol] 12.3 mmol/L 6.0-15.0 Fi [facility] Sodium [Moles/volume] in Ser um or PlasmaOrdered By: Som Fiore on 03-11-2023 Sodium [Moles/Vol] 139 mmol/L 136-145 [facility] Specific gravity Auto test s trip (U) [Rel density]Ordered By: Som Fiore on 03-11-2023 Specific gravity (U) [Rel density] 1.019 1.001-1.03 0 [facility] Squamous epithelial cells de tection in urine sediment by light microscopyOrdered By: Som Fiore on 03-11-2023 Epithelial cells.squamous LM Ql (Urine sed) 1-2 [HPF] 0-2 [facility] Urea nitrogen [Mass/volume] in Serum or PlasmaOrdered By: Som Fiore on 03-11-2023 Urea nitrogen [Mass/Vol] 10 mg/dL 7-25 [facility] Urine bacteria detection by automated methodOrdered By: Som Fiore on 03-11-2023 Bacteria Auto Ql (U) 1+ None [facility] Urine clarity by refractomet ry automatedOrdered By: Som Fiore on 03-11-2023 Clarity Refractometry automated (U) Clear Clear [facility] Urine glucose measurement by automated test strip (mass/volume)Ordered By: Som Fiore on 03-11-2023 Glucose Auto test strip (U) [Mass/Vol] Normal mg/dL Normal [facility] Urine hemoglobin detection b y automated test stripOrdered By: Som Fiore on 03-11-2023 Hemoglobin Auto test strip Ql (U) 1+ Negative [facility] Urine leukocyte esterase det ection by automated test stripOrdered By: Som Fiore on 03-11-2023 Leukocyte esterase Auto test strip Ql (U) Negative Negative [facility] Urobilinogen Auto test strip (U) [Mass/Vol]Ordered By: Som Fiore on 03-11-2023 Urobilinogen (U) [Mass/Vol] Normal mg/dL Normal [facility] WBC Auto (Bld) [#/Vol]Ordere d By: Som Fiore on 03-11-2023 WBC (Bld) [#/Vol] 8.2 10*3/uL 3.8-11.6 [facility] pH Auto test strip (U)Ordere d By: Som Fiore on 03-11-2023 pH (U) 7.0 [pH] 5.0-9.0 [facility] CBC with Auto Differentialon 02-06-2023 Basophils (Bld) [#/Vol] [facility] Basophils/100 WBC (Bld) 0 % 0 - 2 % [facility] Eosinophils (Bld) [#/Vol] [facility] Eosinophils/100 WBC (Bld) 0 % Low 1 - 4 % [facility] Erythrocyte distribution width (RBC) [Ratio] 12.8 % 11.8 - 14.4 % [facility] Hematocrit (Bld) [Volume fraction] 40.5 % 36.3 - 47.1 % [facility] Hemoglobin (Bld) [Mass/Vol] 13.7 g/dL 11.9 - 15.1 g/dL [facility] Immature granulocytes (Bld) [#/Vol] [facility] Immature granulocytes/100 WBC (Bld) 0 % 0 [facility] Interpretation and review of laboratory results Abnormal [facility] Lymphocytes/100 WBC (Bld) 26 % 25 - 45 % [facility] Lymphocytes/100 WBC (Bld) 2.58 % [facility] MCH (RBC) [Entitic mass] 28.5 pg 25.2 - 33.5 pg [facility] MCHC (RBC) [Mass/Vol] 33.8 g/dL 28.4 - 34.8 g/dL [facility] MCV (RBC) [Entitic vol] 84.2 fL 82.6 - 102.9 fL [facility] Monocytes/100 WBC (Bld) 6 % 2 - 8 % [facility] Monocytes/100 WBC (Bld) 0.64 % [facility] Neutrophils/100 WBC (Bld) 68 % High 34 - 64 % [facility] Nucleated RBC/100 WBC (Bld) [Ratio] 0.0 % 0.0 per 100 WBC [facility] Platelet mean volume (Bld) [Entitic vol] 9.4 fL 8.1 - 13.5 fL [facility] Platelets (Bld) [#/Vol] 364 10*3/uL [facility] RBC (Bld) [#/Vol] 4.81 10*6/uL 3.95 - 5.11 m/uL [facility] Segmented neutrophils/100 WBC (Bld) 6.71 % [facility] WBC other (Bld) [#/Vol] 10.0 [facility] CBC with Diffon 02-06-2023 Abs. Basophil <0.03 Normal 0.00-0.20 [facility] Comment on above: Performed By: #### Noemy Santamaria CP, CDP #### [facility] [address] [place] [address] Dr. [place], [place] [address] [facility] Director: Debbie Molina MD Abs. Eosinophil <0.03 Normal 0.00-0.44 [facility] Comment on above: Performed By: #### Noemy Santamaria CP, CDP #### [address] [place], [place] [address] [facility] Director: Debbie Molina MD Abs.Imm.Granulocyte <0.03 Normal 0.00-0.30 [facility] Comment on above: Performed By: #### Noemy Santamaria CP, CDP #### [address] [place], [place] [address] [facility] Director: Debbie Molina MD Abs.Neutrophil (Seg) 6.71 k/uL Normal 1.50-8.10 [facility] Comment on above: Performed By: #### Noemy Santamaria CP, CDP #### [address] [place], [facility] Director: Debbie Molina MD Basophils/100 WBC (Bld) 0 % Normal 0-2 [facility] Comment on above: Performed By: #### Noemy Santamaria CP, CDP #### [facility] [address] [place] [address] Dr. [place], [facility] Director: Debbie Molina MD Eosinophils/100 WBC (Bld) 0 % Low 1-4 [facility] Comment on above: Performed By: #### Noemy Santamaria CP, CDP #### [address] [place], [facility] Director: Debbie Molina MD Erythrocyte distribution width (RBC) [Ratio] 12.8 % Normal 11.8-14.4 [facility] Comment on above: Performed By: #### Noemy Santamaria CP, CDP #### [facility] [address] [place], [place] [id number] [facility] Director: Debbie Molina MD Hematocrit (Bld) [Volume fraction] 40.5 % Normal 36.3-47.1 [facility] Comment on above: Performed By: #### Noemy Santamaria CP, CDP #### [facility] [address] [place], [place] [id number] [facility] Director: Debbie Molina MD Hemoglobin (Bld) [Mass/Vol] 13.7 g/dL Normal 11.9-15.1 [facility] Comment on above: Performed By: #### Noemy Santamaria CP, CDP #### [facility] [address] [place], [place] [id number] [facility] Director: Debbie Molina MD Immature granulocytes/100 WBC (Bld) 0 % Normal 0 [facility] Comment on above: Performed By: #### Noemy Santamaria CP, CDP #### [facility] [address] [place], [place] [id number] [facility] Director: Debbie Molina MD Lymphocytes (Bld) [#/Vol] 2.58 10*3/uL Normal 1.10-3.70 [facility] Comment on above: Performed By: #### Noemy Santamaria CP, CDP #### [facility] [address] [place], [place] [id number] [facility] Director: Debbie Molina MD Lymphocytes/100 WBC (Bld) 26 % Normal 25-45 [facility] [facility] Comment on above: Performed By: #### Noemy Santamaria CP, CDP #### [facility] [address] [place], [place] [id number] [facility] Director: Debbie Molina MD MCH (RBC) [Entitic mass] 28.5 pg Normal 25.2-33.5 [facility] Comment on above: Performed By: #### Noemy Santamaria CP, CDP #### [address] [place], [place] [id number] [facility] Director: Debbie Molina MD MCHC (RBC) [Mass/Vol] 33.8 g/dL Normal 28.4-34.8 [facility] Comment on above: Performed By: #### Noemy Santamaria CP, CDP #### [address] [place] [address] [facility] Director: Debbie Molina MD MCV (RBC) [Entitic vol] 84.2 fL Normal 82.6-102.9 [facility] Comment on above: Performed By: #### Noemy Santamaria CP, CDP #### [address] [place], [place] [id number] [facility] Director: Debbie Molina MD Monocytes (Bld) [#/Vol] 0.64 10*3/uL Normal 0.10-1.40 [facility] Comment on above: Performed By: #### Noemy Santamaria CP, CDP #### [address] [place], [place] [id number] [facility] Director: Debbie Molina MD Monocytes/100 WBC (Bld) 6 % Normal 2-8 [facility] Comment on above: Performed By: #### Noemy Santamaria CP, CDP #### [address] [place] [address] [facility] Director: Debbie Molina MD Neutrophil (Seg) 68 % High 34-64 [facility] Comment on above: Performed By: #### Noemy Santamaria CP, CDP #### [facility] [address] [place], [place] [id number] [facility] Director: Debbie Molina MD NRBC Automated 0.0 per 100 WBC Normal 0.0 [facility] Comment on above: Performed By: #### Noemy Santamaria CP, CDP #### [facility] [address] [place], [place] [id number] [facility] Director: Debbie Molina MD Platelet mean volume (Bld) [Entitic vol] 9.4 fL Normal 8.1-13.5 [facility] Comment on above: Performed By: #### Noemy Santamaria CP, CDP #### [facility] [address] [place], [place] [address]83 [facility] Director: Debbie Molina MD Platelets (Bld) [#/Vol] 364 10*3/uL Normal 138-453 [facility] Comment on above: Performed By: #### Noemy Santamaria CP, CDP #### [facility] [address] [place], [place] [address]83 [facility] Director: Debbie Molina MD RBC (Bld) [#/Vol] 4.81 10*6/uL Normal 3.95-5.11 [facility] Comment on above: Performed By: #### Noemy Santamaria CP, CDP #### [address] [place], [facility] Director: Debbie Molina MD WBC (Bld) [#/Vol] 10.0 10*3/uL Normal 4.5-13.5 [facility] Comment on above: Performed By: #### Noemy Santamaria CP, CDP #### [facility] [address] [place], [facility] Director: Debbie Molina MD [facility] Albumin [Mass/Vol] 4.9 g/dL 3.5 - 5.2 g/dL [facility] Albumin/Globulin [Mass ratio] 1.8 {ratio} 1.0 - 2.5 [facility] ALP [Catalytic activity/Vol] 74 U/L 35 - 104 U/L [facility] ALT [Catalytic activity/Vol] 6 U/L 5 - 33 U/L [facility] Anion gap [Moles/Vol] 14 mmol/L 9 - 17 mmol/L [facility] AST [Catalytic activity/Vol] 16 U/L NINF - 32 U/L [facility] Bilirubin [Mass/Vol] 0.4 mg/dL 0.3 - 1 .2 mg/dL [facility] Calcium [Mass/Vol] 9.6 mg/dL 8.6 - 10. 4 mg/dL [facility] Chloride [Moles/Vol] 102 mmol/L 98 - 10 7 mmol/L [facility] CO2 [Moles/Vol] 25 mmol/L 20 - 31 mmol/L [facility] Creatinine [Mass/Vol] 0.7 mg/dL 0.5 - 0.9 mg/dL [facility] GFR/1.73 sq M.predicted MDRD (S/P/Bld) [Vol rate/Area] - PINF [facility] Comment on above: These results are not [...] 111 mg/dL High 70 - 99 mg/dL [facility] Interpretation and review of laboratory results Abnormal [facility] Potassium [Moles/Vol] 4.0 mmol/L 3.7 - 5.3 mmol/L [facility] Protein [Mass/Vol] 7.7 g/dL 6.4 - 8.3 g/dL [facility] Sodium [Moles/Vol] 141 mmol/L 135 - 144 mmol/L [facility] Urea nitrogen [Mass/Vol] 8 mg/dL 6 - 20 mg/dL [facility] Urea nitrogen/Creatinine [Mass ratio] 11 mg/mg 9 - 20 [facility] [address] HEAD WO CONTRASTon 2022 CT HEAD [...] Ferdinand Chavarria MD 02/06/23 Final result Normal [facility] CT Head WO Contraston 2022 1. No acute intracra nial abnormality. [facility] EXAMINATION: CT OF THE [...] clear. SOFT TISSUES/SKULL: The calvarium is intact. [facility] Ferdinand Chavarria MD - [...] intact. IMPRESSION: 1. No acute intracranial abnormality. [facility] Radiology Study observation (narrative) [facility] CT Head WO ContrastOrdered B y: Ferdinand Chavarria on 02-06-2023 [facility] Work Phone: Comp Metabolic Profon 2022 Albumin [Mass/Vol] 4.9 g/dL Normal 3.5-5.2 [facility] Comment on above: Performed By: #### Noemy Santamaria CP, CDP #### [facility] [address] [place] [address] [place] [address] [facility] Director: Debbie Molina MD Albumin/Glob Ratio 1.8 Normal 1.0-2.5 [facility] Comment on above: Performed By: #### Noemy Santamaria CP, CDP #### [address] [place], [place] [address] [facility] Director: Debbie Molina MD Alkaline Phos 74 U/L Normal 35-104 [facility] Comment on above: Performed By: #### Noemy Santamaria CP, CDP #### [address] [place], [place] [phone] [facility] Director: Debbie Molina MD ALT [Catalytic activity/Vol] 6 U/L Normal 5-33 [facility] Comment on above: Performed By: #### Noemy Santamaria CP, CDP #### [address] [place] [address] [facility] Director: Debbie Molina MD Anion gap [Moles/Vol] 14 mmol/L Normal 9-17 [facility] Comment on above: Performed By: #### M G, CP, CDP #### [facility] [address] [place], [place] [phone] [facility] Director: Debbie Molina MD AST [Catalytic activity/Vol] 16 U/L Normal <32 [facility] Comment on above: Performed By: #### M G, CP, CDP #### [facility] [address] [place], [place] [phone] [facility] Director: Debbie Molina MD Bilirubin [Mass/Vol] 0.4 mg/dL Normal 0.3-1.2 [facility] Comment on above: Performed By: #### M Rosalio, CP, CDP #### [facility] [address] [place], [place] [phone] [facility] Director: Debbie Molina MD BUN/CRE Ratio 11 Normal 9-20 [facility] Comment on above: Performed By: #### M Rosalio, CP, CDP #### [facility] [address] [place], [place] [address]83 [facility] Director: Debbie Molina MD Calcium [Mass/Vol] 9.6 mg/dL Normal 8.6-10.4 [facility] Comment on above: Performed By: #### M Rosalio, CP, CDP #### [address] [place] [address] [facility] Director: Debbie Molina MD Chloride [Moles/Vol] 102 mmol/L Normal 98-107 [facility] Comment on above: Performed By: #### M G, CP, CDP #### [facility] [address] [place], [place] [phone] [facility] Director: Debbie Molina MD CO2 [Moles/Vol] 25 mmol/L Normal 20-31 [facility] Comment on above: Performed By: #### M G, CP, CDP #### [facility] [address] [place] [address] [facility] Director: Debbie Molina MD Creatinine [Mass/Vol] 0.7 mg/dL Normal 0.5-0.9 [facility] Comment on above: Performed By: #### Noemy Santamaria CP, CDP #### [facility] [address] [place] [address] [facility] Director: Debbie Molina MD GFR/1.73 sq M.predicted among non-blacks MDRD (S/P/Bld) [Vol rate/Area] mL/min/{1.73_m2} Normal >60 [facility] Comment on above: Result Comment: [...] affects renal tubular secretion. Performed By: #### Noemy Santamaria CP, CDP #### [facility] [address] [place] [address] Dr. [place], [place] 137[address]83 [facility] Director: Debbie Molina MD Glucose [Mass/Vol] 111 mg/dL High 70-99 [facility] Comment on above: Performed By: #### Noemy Santamaria CP, CDP #### [address] [place] [address] [facility] Director: Debbie Molina MD Potassium [Moles/Vol] 4.0 mmol/L Normal 3.7-5.3 [facility] Comment on above: Performed By: #### Noemy Santamaria CP, CDP #### [facility] [address] [place] [address] [facility] Director: Debbie Molina MD Protein [Mass/Vol] 7.7 g/dL Normal 6.4-8.3 [facility] Comment on above: Performed By: #### Noemy Santamaria CP, CDP #### [facility] [address] [place] [phone] [facility] Director: Debbie Molina MD Sodium [Moles/Vol] 141 mmol/L Normal 135-144 [facility] Comment on above: Performed By: #### Noemy Santamaria CP, CDP #### [facility] [address] [place], [place] 187[address]83 [facility] Director: Debbie Molina MD Urea nitrogen [Mass/Vol] 8 mg/dL Normal 6-20 [facility] Comment on above: Performed By: #### Noemy Santamaria CP, CDP #### [facility] [address] [place], [place] [address]83 [facility] Director: Debbie Molina MD Lactic Acidon 02-06-2023 Lactate [Moles/Vol] 2.5 mmol/L High 0.5-2.2 [facility] Comment on above: Performed By: #### L ACTIC #### [facility] [address] [place], [place] [address]83 [facility] Director: Debbie Molina MD Interpretation and review of laboratory results Abnormal [facility] Lactate (BldV) [Moles/Vol] 2.5 mmol/L High 0.5 - 2.2 mmol/L [facility] Magnesiumon 02-06-2023 Magnesium [Mass/Vol] 2.0 mg/dL Normal 1.6-2.6 [facility] Comment on above: Performed By: #### Noemy Santamaria CP, CDP #### [facility] [address] [place], [place] [address] [facility] Director: Debbie Molina MD Magnesium [Mass/Vol] 2.0 mg/dL 1.6 - 2 .6 mg/dL [facility] No Panel Informationon 02-06 [facility] CT HEAD WO CONon 09-24-2022 CT HEAD [...] by: NAHUN SAMUELS Date: 2022-09-23 23:01 Normal [facility] ER URINE PROFILEon 3 Bilirubin Ql (U) Negative Normal NEGATIVE [facility] Comment on above: Performed By: #### C MP, HSTROPN #### [facility] [address] [place] [address] Dr. Jovanni Maya Clarity (U) CLEAR Normal CLEAR [facility] Comment on above: Performed By: #### C MP, HSTROPN #### [facility] [address] [place] [address] Dr. Jovanni Maya Color (U) YELLOW Normal YELLOW [facility] Comment on above: Performed By: #### C MP, HSTROPN #### [facility] [address] [place] [address] Dr. Jovanni Maya ERUAHD A micrscopic examina tion will be performed if indicated. Normal [facility] Comment on above: Performed By: #### C MP, HSTROPN #### [facility] [address] [place] [address] Dr. Jovanni Maya Glucose Ql (U) Negative Normal NEGATIVE [facility] Comment on above: Performed By: #### C MP, HSTROPN #### [facility] [address] [place] [address] Dr. Jovanni Maya Hemoglobin Ql (U) Negative Normal NEGATIVE [facility] Comment on above: Performed By: #### C MP, HSTROPN #### [facility] [address] [place] [address] Dr. Jovanni Maya Ketones Ql (U) 40 mg/dl Abnormal NEGATIVE [facility] Comment on above: Performed By: #### C MP, HSTROPN #### [facility] [address] [place] [address] Dr. Jovanni Maya LEUKOCYTES Negative Normal NEGATIVE [facility] Comment on above: Performed By: #### C MP, HSTROPN #### [facility] [address] [place] [address] Dr. Jovanni Maya Nitrite Ql (U) Negative Normal NEGATIVE [facility] Comment on above: Performed By: #### C DANIEL, HSTROPN #### [facility] [address] [place] [address] Dr. Jovanni Maya pH (U) 7.0 [pH] Normal 5-9 [facility] Comment on above: Performed By: #### C DANIEL, HSTROPN #### [facility] [address] [place] [address] Dr. Jovanni Maya SPEC GRAVITY 1.015 Normal 1.005-<=1. 025 [facility] Comment on above: Performed By: #### C DANIEL, HSTROPN #### [facility] [address] [place] [address] Dr. Jovanni Maya UA PROTEIN Negative Normal NEGATIVE/ TRACE [facility] Comment on above: Performed By: #### C DANIEL, HSTROPN #### [facility] [address] [place] [address] Dr. Jovanni Maya UR MICRO IND NOT INDICATED Normal [facility] Comment on above: Performed By: #### C DANIEL, HSTROPN #### [facility] [address] [place] [address] Dr. Jovanni Maya Urobilinogen Qn (U) 0.2 {Carlos A'U}/dL Normal 0.2 - 1. 0 [facility] Comment on above: Performed By: #### C MP, HSTROPN #### [facility] [address] [place] [address] Dr. Jovanni Maya LACTATE/LACTIC ACIDon 2022 Lactate [Moles/Vol] 0.6 mmol/L Normal 0.4-2.0 [facility] Comment on above: Performed By: #### P REG, ACETON #### [facility] [address] [place] [address] Dr. Jovanni Maya POINT OF CARE GLUCOSEon 08-27 Glucose [Mass/Vol] 123 mg/dL Critically high 74-106 [facility] Comment on above: Performed By: #### P OCGLUC #### [facility] [address] [place] [address] Dr. Jovanni Maya XR CHEST 1 Von [...] DEBBIE BRITT Date: 2022-09-23 22:21 Normal [facility] ACETONE SERUMon 09-23-2022 ACETONE Negative Normal NEGATIVE [facility] Comment on above: Performed By: #### P REG, ACETON #### [facility] [address] [place] [address] Dr. Jovanni Maya CBC AUTO DIFFon 09-23-2022 BASO # 0.0 103/ul Normal 0.0-0.1 [facility] Comment on above: Performed By: #### C BC #### [facility] [address] [place] [address] Dr. Jovanni Maya Basophils/100 WBC (Bld) 0.3 % Normal 0.2-2.0 [facility] Comment on above: Performed By: #### C BC #### [facility] [address] [place] [address] Dr. Jovanni Maya EO # 0.0 103/ul Normal 0.0-0.7 [facility] Comment on above: Performed By: #### C BC #### [facility] [address] [place] [address] Dr. Jovanni Maya Eosinophils/100 WBC (Bld) 0.1 % Critically low 0.9-7.0 [facility] Comment on above: Performed By: #### C BC #### [facility] [address] [place] [address] Dr. Jovanni Maya Erythrocyte distribution width (RBC) [Ratio] 12.4 % Normal 11.0-15.0 [facility] Comment on above: Performed By: #### C BC #### [facility] [address] [place] [address] Dr. Jovanni Maya Hematocrit (Bld) [Volume fraction] 39.6 % Normal 36.0-48.0 [facility] Comment on above: Performed By: #### C BC #### [facility] [address] [place] [address] Dr. Jovanni Maya Hemoglobin (Bld) [Mass/Vol] 13.7 g/dL Normal 12.0-16.0 [facility] Comment on above: Performed By: #### C BC #### [facility] [address] [place] [address] Dr. Jovanni Maya IG # 0.02 10e3/ul Normal 0.00-0.03 [facility] Comment on above: Performed By: #### C BC #### [facility] [address] [place] [address] Dr. Jovanni Maya IG % 0.2 % Normal 0.0-0.5 [facility] Comment on above: Performed By: #### C BC #### [facility] [address] [place] [address] Dr. Jovanni Maya LYMPH # 2.2 103/ul Normal 1.2-3.8 [facility] Comment on above: Performed By: #### C BC #### [facility] [address] [place] [address] Dr. Jovanni Maya Lymphocytes/100 WBC (Bld) 24.8 % Normal 20.5-60.0 [facility] Comment on above: Performed By: #### C BC #### [facility] [address] [place] [address] Dr. Jovanni Maya MANUAL DIFF REQ NO Normal [facility] Comment on above: Performed By: #### C BC #### [facility] [address] [place] [address] Dr. Jovanni Maya MCH (RBC) [Entitic mass] 29.7 pg Normal 26.7-34.0 [facility] Comment on above: Performed By: #### C BC #### [facility] [address] [place] [address] Dr. Jovanni Maya MCHC (RBC) [Mass/Vol] 34.6 g/dL Normal 29.9-35.2 [facility] Comment on above: Performed By: #### C BC #### [facility] [address] [place] [address] Dr. Jovanni Maya MCV (RBC) [Entitic vol] 85.7 fL Normal 81.0-99.0 [facility] Comment on above: Performed By: #### C BC #### [facility] [address] [place] [address] Dr. Jovanni Maya MONO # 0.7 103/ul Normal 0.3-0.8 [facility] Comment on above: Performed By: #### C BC #### [facility] [address] [place] [address] Dr. Jovanni Maya Monocytes/100 WBC (Bld) 7.6 % Normal 1.7-12.0 [facility] Comment on above: Performed By: #### C BC #### [facility] [address] [place] [address] Dr. Jovanni Maya NEUT # 5.9 103/ul Normal 1.4-6.5 [facility] Comment on above: Performed By: #### C BC #### [facility] [address] [place] [address] Dr. Jovanni Maya Neutrophils/100 WBC (Bld) 67.0 % Normal 43.0-75.0 [facility] Comment on above: Performed By: #### C BC #### [facility] [address] [address] [address] Jovanni Maya Platelet mean volume (Bld) [Entitic vol] 9.3 fL Critically low 9.5-13.5 [facility] Comment on above: Performed By: #### C BC #### [facility] [address] [address] [address] Jovanni Maya PLT 259 103/ul Normal 150-450 [facility] Comment on above: Performed By: #### C BC #### [facility] [address] [place] [address] Dr. Jovanni Maya RBC 4.62 106/ul Normal 4.20-5.40 [facility] Comment on above: Performed By: #### C BC #### [facility] [address] [place] [address] Dr. Jovanni Maya WBC 8.8 103/ul Normal 4.0-11.0 [facility] Comment on above: Performed By: #### C BC #### [facility] [address] [place] [address] Dr. Jovanni Maya D-DIMERon 09-23-2022 D-DIMER 0.19 mg/L FEU Normal <=0.59 [facility] Comment on above: Performed By: #### C MP, HSTROPN #### [facility] [address] [place] [address] Dr. Jovanni Maya D-DIMER COMMENTS SEE BELOW Normal [facility] Comment on above: Result Comment: [...] Performed By: #### C MP, HSTROPN #### [facility] [address] [place] [address] Dr. Jovanni Maya GROUP A STREP CULTUREon 08-27 S. pyogenes Ag Ql (Unsp spec) Culture Observations: NEGATIVE FOR GROUP A STREPTOCOCCUS. Normal [facility] Comment on above: Performed By: #### C MP, HSTROPN #### [facility] [address] [place] [address] Dr. Jovanni Myaa INFLUENZA A AND B AGon 09-23 INFLUENZA A AG Negative Normal NEGATIVE SEE COMMENT [facility] Comment on above: Performed By: #### I NFLUAB #### [facility] [address] [place] [address] Dr. Jovanni Maya INFLUENZA B AG Negative Normal NEGATIVE SEE COMMENT [facility] Comment on above: Performed By: #### I NFLUAB #### [facility] [address] [place] [address] Dr. Jovanni Maya LACTATE/LACTIC ACIDon 2022 Lactate [Moles/Vol] 3.2 mmol/L Critically high 0.4-2.0 [facility] Comment on above: Performed By: #### L ACT #### [facility] [address] [place] [address] Dr. Jovanni Maya PREG HCG QUALon 09-23-2022 , QUAL Negative Normal NEGATIVE [facility] Comment on above: Performed By: #### P REG, ACETON #### [facility] [address] [place] [address] Dr. Jovanni Maya PROF 14(COMP METB)on 023 Albumin [Mass/Vol] 4.6 g/dL Normal 3.4-5.0 [facility] Comment on above: Performed By: #### C MP, HSTROPN #### [facility] [address] [place] [address] Dr. Jovanni Maya Albumin/Globulin [Mass ratio] 1.5 {ratio} Normal [facility] Comment on above: Performed By: #### C MP, HSTROPN #### [facility] [address] [place] [address] Dr. Jovanni Maya ALP [Catalytic activity/Vol] 59 U/L Normal 46-116 [facility] Comment on above: Performed By: #### C MP, HSTROPN #### [facility] [address] [address] [address] Jovanni Maya ALT [Catalytic activity/Vol] 11 U/L Critically low 14-59 [facility] Comment on above: Performed By: #### C MP, HSTROPN #### [facility] [facility] [address] [place] [address] Dr. Jovanni Maya Anion gap [Moles/Vol] 15.3 mmol/L Normal [facility] [place] Comment on above: Performed By: #### C MP, HSTROPN #### [facility] [address] [place] [address] Dr. Jovanni Maya AST [Catalytic activity/Vol] 10 U/L Critically low 15-37 [facility] Comment on above: Performed By: #### C MP, HSTROPN #### [facility] [address] [place] [address] Dr. Jovanni Maya Bilirubin [Mass/Vol] 0.8 mg/dL Normal 0.2-1.0 [facility] Comment on above: Performed By: #### C MP, HSTROPN #### [facility] [address] [place] [address] Dr. Jovanni Maya Calcium [Mass/Vol] 9.2 mg/dL Normal 8.5-10.1 [facility] Comment on above: Performed By: #### C MP, HSTROPN #### [facility] [address] [place] [address] Dr. Jovanni Maya Chloride [Moles/Vol] 105 mmol/L Normal 98-107 [facility] Comment on above: Performed By: #### C MP, HSTROPN #### [facility] [address] [place] [address] Dr. Jovanni Maya CO2 [Moles/Vol] 24.4 mmol/L Normal 21.0-32.0 [facility] Comment on above: Performed By: #### C MP, HSTROPN #### [facility] [address] [place] [address] Dr. Jovanni Maya Creatinine [Mass/Vol] 0.99 mg/dL Normal 0.55-1.02 [facility] Comment on above: Performed By: #### C DANIEL, HSTROPN #### [facility] [address] [address] [address] Jovanni Maya EGFR-AF SCOTTISH >60 Normal >=60 [facility] Comment on above: Performed By: #### C DANIEL, HSTROPN #### [facility] [address] [address] [address] Jovanni Maya EGFR-NON AF SCOTTISH >60 Normal >=60 [facility] Comment on above: Performed By: #### C DANIEL, HSTROPN #### [facility] [address] [address] [address] Jovanni Maya Globulin (S) [Mass/Vol] 3.1 g/dL Normal [facility] Comment on above: Performed By: #### C DANIEL, HSTROPN #### [facility] [address] [address] [address] Jovanni Maya Glucose [Mass/Vol] 113 mg/dL Critically high 74-106 [facility] Comment on above: Performed By: #### C DANIEL, HSTROPN #### [facility] [address] [address] [address] Jovanni Maya Potassium [Moles/Vol] 3.7 mmol/L Normal 3.5-5.1 [facility] Comment on above: Performed By: #### C DANIEL, HSTROPN #### [facility] [address] [address] [address] Jovanni Maya Protein [Mass/Vol] 7.7 g/dL Normal 6.4-8.[address] [facility] Comment on above: Performed By: #### C MP, HSTROPN #### [facility] [address] [address] [address] Jovanni Maya Sodium [Moles/Vol] 141 mmol/L Normal 136-145 [facility] Comment on above: Performed By: #### C MP, HSTROPN #### [facility] [address] [address] [address] Jovanni Maya Urea nitrogen [Mass/Vol] 10.0 mg/dL Normal 7.0-18.0 [facility] Comment on above: Performed By: #### C MP, HSTROPN #### [facility] [address] [address] [address] Jovanni Maya Urea nitrogen/Creatinine [Mass ratio] 10.1 mg/mg Normal [facility] Comment on above: Performed By: #### C MP, HSTROPN #### [facility] [address] [address] [address] Jovanni Maya STREPT SCREENon 09-23-2022 STREP SCREEN A Negative Normal NEGATIVE [facility] Comment on above: Performed By: #### C MP, HSTROPN #### [facility] [address] [address] [address] Jovanni Maya TROPONIN, HIGH SENSITIVITYon 09-23-2022 HSTROP <4.0 Normal 4.0-51.3 [facility] Comment on above: Result Comment: CUT- OFF POINTS HAVE BEEN ESTABLISHED BASED ON THE FOURTH UNIVERSAL DEFINITIONS OF MYOCARDIAL INFARCTION. THE UPPER REFERENCE LIMIT (URL) OF TROPONIN, DEFINED THE 99TH PERCENTILE OF cTnI DISTRIBUTION IN A REFERENCE POPULATION, HAS BEEN CONFIRMED THE DECISION THRESHOLD FOR [place] DIAGNOSIS. Performed By: #### C DANIEL, HSTROPN #### [facility] [address] [place] [address] Dr. Jovanni Maya Alanine aminotransferase [En zymatic activity/volume] in Serum or PlasmaOrdered By: Federica Bullimore on 09-13-2022 ALT [Catalytic activity/Vol] 5 U/L 7-52 [facility] Albumin [Mass/volume] in Ser um or Plasma by Bromocresol green (BCG) dye binding methoOrdered By: Federica Bullimore on 09-13-2022 Albumin BCG dye [Mass/Vol] 4.3 g/dL 3.5-5.7 [facility] Alkaline phosphatase [Enzyma tic activity/volume] in Serum or PlasmaOrdered By: Federica Bullimore on 09-13-2022 ALP [Catalytic activity/Vol] 45 U/L 34-104 [facility] Aspartate aminotransferase [ Enzymatic activity/volume] in Serum or PlasmaOrdered By: Federica Bullimore on 09-13-2022 AST [Catalytic activity/Vol] 12 U/L 13-39 [facility] Basophils Auto (Bld) [#/Vol] Ordered By: Federica Bullimore on 09-13-2022 Basophils (Bld) [#/Vol] 0.0 10*3/uL 0.0-0.2 [facility] Basophils/100 WBC Auto (Bld) Ordered By: Federica Bullimore on 09-13-2022 Basophils/100 WBC (Bld) 0.7 % . [facility] Bilirubin.total [Mass/volume ] in Serum or PlasmaOrdered By: Federica Bullimore on 09-13-2022 Bilirubin [Mass/Vol] 0.5 mg/dL 0.3-1.0 [facility] Calcium [Mass/volume] in Ser um or PlasmaOrdered By: Federica Bullimore on 09-13-2022 Calcium [Mass/Vol] 9.1 mg/dL 8.6-10.3 [facility] Carbon dioxide, total [Moles /volume] in Serum or PlasmaOrdered By: Federica Bullimore on 09-13-2022 CO2 [Moles/Vol] 30.0 mmol/L 21.0-31.0 [facility] Chloride [Moles/volume] in S alexis or PlasmaOrdered By: Federica Bullimore on 09-13-2022 Chloride [Moles/Vol] 105 mmol/L 98-107 [facility] Creatinine [Mass/volume] in Serum or PlasmaOrdered By: Federica Bullimore on 09-13-2022 Creatinine [Mass/Vol] 0.91 mg/dL 0.60-1.20 [facility] Eosinophils Auto (Bld) [#/Vo l]Ordered By: Federica Bullimore on 09-13-2022 Eosinophils (Bld) [#/Vol] 0.0 10*3/uL 0.0-0.45 [facility] Eosinophils/100 WBC Auto (Bl d)Ordered By: Federica Bullimore on 09-13-2022 Eosinophils/100 WBC (Bld) 0.5 % . [facility] Erythrocyte distribution wid th Auto (RBC) [Ratio]Ordered By: Federica Wolfe on 09-13-2022 Erythrocyte distribution width (RBC) [Ratio] 13.3 % 11.9-15.3 [facility] Globulin Calc (S) [Mass/Vol] Ordered By: Federica Wolfe on 09-13-2022 Globulin (S) [Mass/Vol] 2.7 g/dL [facility] Glucose [Mass/volume] in Ser um or PlasmaOrdered By: Federica Wolfe on 09-13-2022 Glucose [Mass/Vol] 89 mg/dL 74-109 [facility] Comment on above: ADA recommended refe rence rangeRandom Glucose Reference Range is dependent on time and content of last meal. Glucose of more than 200 mg/dL in a nonstressed, ambulatory subject supports the diagnosis of Diabetes Mellitus. Hematocrit Auto (Bld) [Volum e fraction]Ordered By: Federica Wolfe on 09-13-2022 Hematocrit (Bld) [Volume fraction] 37.5 % 34.0-46.4 [facility] Hemoglobin [Mass/volume] in BloodOrdered By: Fedreica Wolfe on 09-13-2022 Hemoglobin (Bld) [Mass/Vol] 12.7 g/dL 11.8-15.4 [facility] - Chemistry and C hemistry - challengeOrdered By: Federica Wolfe on 09-13-2022 GFR/1.73 sq M.predicted MDRD (S/P/Bld) [Vol rate/Area] mL/min/{1.73_m2} [facility] Leukocytes [#/volume] correc manjula for nucleated erythrocytes in Blood by Automated counOrdered By: Federica Wolfe on 09-13-2022 WBC corrected for nucl RBC Auto (Bld) [#/Vol] 5.9 10*3/uL 3.8-11.6 [facility] Lymphocytes Auto (Bld) [#/Vo l]Ordered By: Federica Wolfe on 09-13-2022 Lymphocytes (Bld) [#/Vol] 2.1 10*3/uL 1.00-4.8 [facility] Lymphocytes/100 WBC Auto (Bl d)Ordered By: Federica Bullimore on 09-13-2022 Lymphocytes/100 WBC (Bld) 36.0 % . [facility] MCH Auto (RBC) [Entitic mass ]Ordered By: Federica Bullimore on 09-13-2022 MCH (RBC) [Entitic mass] 29.7 pg 24.7-34.3 [facility] MCHC Auto (RBC) [Mass/Vol]Or dered By: Federica Bullimore on 09-13-2022 MCHC (RBC) [Mass/Vol] 33.8 g/dL 32.0-35.0 [facility] MCV Auto (RBC) [Entitic vol] Ordered By: Federica Bullimore on 09-13-2022 MCV (RBC) [Entitic vol] 88.0 fL 80-100 [facility] Monocyte distribution width [Entitic volume] in Blood by AutomatedOrdered By: Federica Bullimore on 09-13-2022 Monocyte distribution width Auto (Bld) [Entitic vol] 17.84 % 0.00-20.00 [facility] Monocytes Auto (Bld) [#/Vol] Ordered By: Federica Bullimore on 09-13-2022 Monocytes (Bld) [#/Vol] 0.4 10*3/uL 0.0-0.8 [facility] Monocytes/100 WBC Auto (Bld) Ordered By: Federica Bullimore on 09-13-2022 Monocytes/100 WBC (Bld) 7.0 % . [facility] Neutrophils Auto (Bld) [#/Vo l]Ordered By: Federica Bullimore on 09-13-2022 Neutrophils (Bld) [#/Vol] 3.3 10*3/uL 1.8-7.7 [facility] Neutrophils/100 WBC Auto (Bl d)Ordered By: Federica Bullimore on 09-13-2022 Neutrophils/100 WBC (Bld) 55.8 % . [facility] No Panel InformationOrdered By: Federica Giordanoimninfa on 09-13-2022 Pharmacy Creatinine Clearance (Chem 72.40 [facility] Nucleated erythrocytes [Pres ence] in Blood by Automated countOrdered By: Federica Giordanoimore on 09-13-2022 Nucleated RBC Auto Ql (Bld) 0.1 /100{WBC} 0-0.5 [facility] Platelet mean volume Auto (B ld) [Entitic vol]Ordered By: Federica Bullimore on 09-13-2022 Platelet mean volume (Bld) [Entitic vol] 8.0 fL 6.3-10.7 [facility] Platelets Auto (Bld) [#/Vol] Ordered By: Federica Bullimore on 09-13-2022 Platelets (Bld) [#/Vol] 245 10*3/uL 150-450 [facility] Potassium [Moles/volume] in Serum or PlasmaOrdered By: Federica Bullimore on 09-13-2022 Potassium [Moles/Vol] 3.7 mmol/L 3.5-5.1 [facility] Protein [Mass/volume] in Ser um or PlasmaOrdered By: Federica Bullimore on 09-13-2022 Protein [Mass/Vol] 7.0 g/dL 6.4-8.9 [facility] RBC Auto (Bld) [#/Vol]Ordere d By: Federica Bullimore on 09-13-2022 RBC (Bld) [#/Vol] 4.27 10*6/uL 3.60-5.00 [facility] Serum or plasma albumin/glob ulin mass ratioOrdered By: Federica Bullimore on 09-13-2022 Albumin/Globulin [Mass ratio] 1.6 {ratio} [facility] Serum or plasma anion gap de terminationOrdered By: Federica Bullimore on 09-13-2022 Anion gap [Moles/Vol] 8.7 mmol/L 6.0-15.0 [facility] Sodium [Moles/volume] in Ser um or PlasmaOrdered By: Federica Bullimore on 09-13-2022 Sodium [Moles/Vol] 140 mmol/L 136-145 [facility] Urea nitrogen [Mass/volume] in Serum or PlasmaOrdered By: Federica Bullimore on 09-13-2022 Urea nitrogen [Mass/Vol] 8 mg/dL 7-25 [facility] WBC Auto (Bld) [#/Vol]Ordere d By: Federica Wolfe on 09-13-2022 WBC (Bld) [#/Vol] 5.9 10*3/uL 3.8-11.6 [facility] Automated erythrocytes count in urine sediment (number/area)Ordered By: Shanelle Bowen on 08-30-2022 RBC Auto (Urine sed) [#/Area] 5-9 [HPF] 0-4 [facility] Automated leukocytes count i n urine sediment (number/area)Ordered By: Shanelle Bowen on 08-30-2022 WBC Auto (Urine sed) [#/Area] 5-9 [HPF] 0-4 [facility] Basophils Auto (Bld) [#/Vol] Ordered By: Shanelle Bowen on 08-30-2022 Basophils (Bld) [#/Vol] 0.0 10*3/uL 0.0-0.2 [facility] Basophils/100 WBC Auto (Bld) Ordered By: Shanelle Bowen on 08-30-2022 Basophils/100 WBC (Bld) 0.5 % . [facility] Bilirubin Test strip Ql (U)O rdered By: Shanelle Bowen on 08-30-2022 Bilirubin Ql (U) Negative Negative [facility] Calcium [Mass/volume] in Ser um or PlasmaOrdered By: Shanelle Bowen on 08-30-2022 Calcium [Mass/Vol] 9.4 mg/dL 8.2-10.2 [facility] Carbon dioxide, total [Moles /volume] in Serum or PlasmaOrdered By: Shanelle Bowen on 08-30-2022 CO2 [Moles/Vol] 21.7 mmol/L 22.0-30.0 [facility] Chloride [Moles/volume] in S alexis or PlasmaOrdered By: Shanelle Bowen on 08-30-2022 Chloride [Moles/Vol] 102 mmol/L 95-114 [facility] Color Auto (U)Ordered By: Brian Bowen on 08-30-2022 Color (U) Yellow Yellow [facility] Creatinine and Glomerular fi ltration rate.predicted panel (S/P/Bld)Ordered By: Shanelle Bowen on 08-30-2022 Creatinine [Mass/Vol] 0.99 mg/dL 0.44-1.03 [facility] Eosinophils Auto (Bld) [#/Vo l]Ordered By: Shanelle Bowen on 08-30-2022 Eosinophils (Bld) [#/Vol] 0.1 10*3/uL 0.0-0.45 [facility] Eosinophils/100 WBC Auto (Bl d)Ordered By: Shanelle Bowen on 08-30-2022 Eosinophils/100 WBC (Bld) 1.2 % . [facility] Erythrocyte distribution wid th Auto (RBC) [Ratio]Ordered By: Shanelle Bowen on 08-30-2022 Erythrocyte distribution width (RBC) [Ratio] 13.9 % 11.9-15.3 [facility] Estimated glomerular filtrat ion rate (GFR) non- AmericanOrdered By: Shanelle Bowen on 08-30-2022 GFR/1.73 sq M.predicted among non-blacks MDRD (S/P/Bld) [Vol rate/Area] > 60 mL/Min [facility] Glucose [Mass/volume] in Ser um or PlasmaOrdered By: Shanelle Bowen on 08-30-2022 Glucose [Mass/Vol] 101 mg/dL 70-100 [facility] Comment on above: ADA recommended refe rence rangeRandom Glucose Reference Range is dependent on time and content of last meal. Glucose of more than 200 mg/dL in a nonstressed, ambulatory subject supports the diagnosis of Diabetes Mellitus. Hematocrit Auto (Bld) [Volum e fraction]Ordered By: Shanelle Bowen on 08-30-2022 Hematocrit (Bld) [Volume fraction] 43.8 % 34.0-46.4 [facility] Hemoglobin [Mass/volume] in BloodOrdered By: Shanelle Bowen on 08-30-2022 Hemoglobin (Bld) [Mass/Vol] 14.6 g/dL 11.8-15.4 [facility] Ketones Auto test strip (U) [Mass/Vol]Ordered By: Shanelle Bowen on 08-30-2022 Ketones (U) [Mass/Vol] Trace Negative [facility] - Chemistry and C hemistry - challengeOrdered By: Shanelle Bowen on 08-30-2022 Magnesium [Mass/Vol] 2.2 mg/dL 1.6-2.6 [facility] - UrinalysisOrder ed By: Shanelle Bowen on 08-30-2022 Hyaline casts LM Ql (Urine sed) 0-8 [LPF] 0-8 [facility] Leukocytes [#/volume] correc manjula for nucleated erythrocytes in Blood by Automated counOrdered By: Shanelle Bowen on 08-30-2022 WBC corrected for nucl RBC Auto (Bld) [#/Vol] 10.5 10*3/uL 3.8-11.6 [facility] Lymphocytes Auto (Bld) [#/Vo l]Ordered By: Shanelle Bowen on 08-30-2022 Lymphocytes (Bld) [#/Vol] 3.9 10*3/uL 1.00-4.8 [facility] Lymphocytes/100 WBC Auto (Bl d)Ordered By: Shanelle Bowen on 08-30-2022 Lymphocytes/100 WBC (Bld) 36.9 % . [facility] MCH Auto (RBC) [Entitic mass ]Ordered By: Shanelle Bowen on 08-30-2022 MCH (RBC) [Entitic mass] 29.5 pg 24.7-34.3 [facility] MCHC Auto (RBC) [Mass/Vol]Or dered By: Shanelle Bowen on 08-30-2022 MCHC (RBC) [Mass/Vol] 33.3 g/dL 32.0-35.0 [facility] MCV Auto (RBC) [Entitic vol] Ordered By: Shanelle Bowen on 08-30-2022 MCV (RBC) [Entitic vol] 88.7 fL 80-100 [facility] Monocyte distribution width [Entitic volume] in Blood by AutomatedOrdered By: Shanelle Bowen on 08-30-2022 Monocyte distribution width Auto (Bld) [Entitic vol] 19.23 % 0.00-20.00 [facility] Monocytes Auto (Bld) [#/Vol] Ordered By: Shanelle Bowen on 08-30-2022 Monocytes (Bld) [#/Vol] 0.6 10*3/uL 0.0-0.8 [facility] Monocytes/100 WBC Auto (Bld) Ordered By: Shanelle Bowen on 08-30-2022 Monocytes/100 WBC (Bld) 5.6 % . [facility] Neutrophils Auto (Bld) [#/Vo l]Ordered By: Shanelle Bowen on 08-30-2022 Neutrophils (Bld) [#/Vol] 5.9 10*3/uL 1.8-7.7 [facility] Neutrophils/100 WBC Auto (Bl d)Ordered By: Shanelle Bowen on 08-30-2022 Neutrophils/100 WBC (Bld) 55.8 % . [facility] Nitrite Test strip Ql (U)Ord ered By: hSanelle Bowen on 08-30-2022 Nitrite Ql (U) Negative Negative [facility] No Panel InformationOrdered By: Shanelle Bowen on 08-30-2022 Lamotrigine (Lamictal) Level 4.2 ug/mL 2.0-20.0 [facility] Comment on above: Detection Limit = 1. 0Performed at: [facility] - [facility] [place] [id number] Director: Sina Hills MD, Phone: [phone] Levetiracetam (Keppra) Level 41.6 ug/mL 10.0-40.0 [facility] Comment on above: Performed at: [facility] [address] [id number] Director: Sina Hills MD, Phone: [phone] Estimated GFR () > 60 mL/Min [facility] Comment on above: GFR estimated refere nce range: According to KDOQI guidelines, <60 ml/min/1.73m2 is sufficient to diagnose a patient with chronic kidney disease. Pharmacy Creatinine Clearance (Chem 67.83 [facility] Nucleated erythrocytes [Pres ence] in Blood by Automated countOrdered By: Shanelle Bowen on 08-30-2022 Nucleated RBC Auto Ql (Bld) 0.1 /100{WBC} 0-0.5 [facility] Platelet mean volume Auto (B ld) [Entitic vol]Ordered By: Shanelle Bowen on 03-06-2023 Platelet mean volume (Bld) [Entitic vol] 8.4 fL 6.3-10.7 [facility] Platelets Auto (Bld) [#/Vol] Ordered By: Shanelle Bowen on 08-30-2022 Platelets (Bld) [#/Vol] 288 10*3/uL 150-450 [facility] Potassium [Moles/volume] in Serum or PlasmaOrdered By: Shanelle Bowen on 08-30-2022 Potassium [Moles/Vol] 3.4 mmol/L 3.5-5.1 [facility] Protein Auto test strip (U) [Mass/Vol]Ordered By: Shanelle Bowen on 08-30-2022 Protein (U) [Mass/Vol] Trace mg/dL Negative [facility] RBC Auto (Bld) [#/Vol]Ordere d By: Shanelle Bowen on 08-30-2022 RBC (Bld) [#/Vol] 4.94 10*6/uL 3.60-5.00 [facility] Serum or plasma anion gap de terminationOrdered By: Shanelle Bowen on 08-30-2022 Anion gap [Moles/Vol] 17.7 mmol/L 6.0-15.0 [facility] Sodium [Moles/volume] in Ser um or PlasmaOrdered By: Shanelle Bowen on 08-30-2022 Sodium [Moles/Vol] 138 mmol/L 136-146 [facility] Specific gravity Auto test s trip (U) [Rel density]Ordered By: Shanelle oBwen on 08-30-2022 Specific gravity (U) [Rel density] 1.016 1.001-1.03 0 [facility] Squamous epithelial cells de tection in urine sediment by light microscopyOrdered By: Shanelle Bowen on 08-30-2022 Epithelial cells.squamous LM Ql (Urine sed) 1-2 [HPF] 0-2 [facility] Urea nitrogen [Mass/volume] in Serum or PlasmaOrdered By: Shanelle Bowen on 08-30-2022 Urea nitrogen [Mass/Vol] 5 mg/dL 9-23 [facility] Urine bacteria detection by automated methodOrdered By: Shanelle Bowen on 08-30-2022 Bacteria Auto Ql (U) None seen None [facility] Urine clarity by refractomet ry automatedOrdered By: Shanelle Bowen on 08-30-2022 Clarity Refractometry automated (U) Clear Clear [facility] Urine culture routineOrdered By: Shanelle Bowen on 08-30-2022 Bacteria identified Cx Nom (U) 2 Days [facility] Urine glucose measurement by automated test strip (mass/volume)Ordered By: Shanelle Bowen on 08-30-2022 Glucose Auto test strip (U) [Mass/Vol] Normal mg/dL Normal [facility] Urine hemoglobin detection b y automated test stripOrdered By: Shanelle Bowen on 08-30-2022 Hemoglobin Auto test strip Ql (U) 3+ Negative [facility] Urine leukocyte esterase det ection by automated test stripOrdered By: Shanelle Bowen on 08-30-2022 Leukocyte esterase Auto test strip Ql (U) 1+ Negative [facility] Urobilinogen Auto test strip (U) [Mass/Vol]Ordered By: Shanelle Bowen on 08-30-2022 Urobilinogen (U) [Mass/Vol] Normal mg/dL Normal [facility] WBC Auto (Bld) [#/Vol]Ordere d By: Shanelle Bowen on 08-30-2022 WBC (Bld) [#/Vol] 10.5 10*3/uL 3.8-11.6 [facility] pH Auto test strip (U)Ordere d By: Shanelle Bowen on 08-30-2022 pH (U) 6.5 [pH] 5.0-9.0 [facility] Albumin [Mass/volume] in Ser um or PlasmaOrdered By: Roberto Whitatker on 08-18-2022 Albumin [Mass/Vol] 4.6 g/dL 3.2-5.5 [facility] Alkaline phosphatase [Enzyma tic activity/volume] in Serum or PlasmaOrdered By: Roberto Whittaker on 08-18-2022 ALP [Catalytic activity/Vol] 50 U/L 32-92 [facility] Aspartate aminotransferase [ Enzymatic activity/volume] in Serum or PlasmaOrdered By: Roberto Whittaker on 08-18-2022 AST [Catalytic activity/Vol] 19 U/L 10-42 [facility] Basophils Auto (Bld) [#/Vol] Ordered By: Roberto Whittaker on 08-18-2022 Basophils (Bld) [#/Vol] 0.0 10*3/uL 0.0-0.2 [facility] Basophils/100 WBC Auto (Bld) Ordered By: Roberto Whittaker on 08-18-2022 Basophils/100 WBC (Bld) 0.5 % . [facility] Calcium [Mass/volume] in Ser um or PlasmaOrdered By: Roberto Whittaker on 08-18-2022 Calcium [Mass/Vol] 9.4 mg/dL 8.2-10.2 [facility] Carbon dioxide, total [Moles /volume] in Serum or PlasmaOrdered By: Roberto Whittaker on 08-18-2022 CO2 [Moles/Vol] 26.7 mmol/L 22.0-30.0 [facility] Creatinine and Glomerular fi ltration rate.predicted panel (S/P/Bld)Ordered By: Roberto Whittaker on 08-18-2022 Creatinine [Mass/Vol] 0.87 mg/dL 0.44-1.03 [facility] Eosinophils Auto (Bld) [#/Vo l]Ordered By: Roberto Whittaker on 08-18-2022 Eosinophils (Bld) [#/Vol] 0.0 10*3/uL 0.0-0.45 [facility] Eosinophils/100 WBC Auto (Bl d)Ordered By: Roberto Whittaker on 08-18-2022 Eosinophils/100 WBC (Bld) 0.5 % . [facility] Erythrocyte distribution wid th Auto (RBC) [Ratio]Ordered By: Roberto Whittaker on 08-18-2022 Erythrocyte distribution width (RBC) [Ratio] 13.7 % 11.9-15.3 [facility] Estimated glomerular filtrat ion rate (GFR) non- AmericanOrdered By: Roberto Whittaker on 08-18-2022 GFR/1.73 sq M.predicted among non-blacks MDRD (S/P/Bld) [Vol rate/Area] > 60 mL/Min [facility] Globulin Calc (S) [Mass/Vol] Ordered By: Roberto Whittaker on 02-22-2023 Globulin (S) [Mass/Vol] 2.7 g/dL [facility] Hematocrit Auto (Bld) [Volum e fraction]Ordered By: Roberto Whittaker on 08-18-2022 Hematocrit (Bld) [Volume fraction] 39.6 % 34.0-46.4 [facility] Hemoglobin [Mass/volume] in BloodOrdered By: Roberto Whittaker on 08-18-2022 Hemoglobin (Bld) [Mass/Vol] 13.3 g/dL 11.8-15.4 [facility] Laboratory - Chemistry and C hemistry - challengeOrdered By: Roberto Whittaker on 08-18-2022 Magnesium [Mass/Vol] 2.1 mg/dL 1.6-2.6 [facility] Leukocytes [#/volume] correc manjula for nucleated erythrocytes in Blood by Automated counOrdered By: Roberto Whittaker on 08-18-2022 WBC corrected for nucl RBC Auto (Bld) [#/Vol] 6.9 10*3/uL 3.8-11.6 [facility] Lymphocytes Auto (Bld) [#/Vo l]Ordered By: Roberto Whittaker on 08-18-2022 Lymphocytes (Bld) [#/Vol] 2.2 10*3/uL 1.00-4.8 [facility] Lymphocytes/100 WBC Auto (Bl d)Ordered By: Roberto Whittaker on 08-18-2022 Lymphocytes/100 WBC (Bld) 31.2 % . [facility] MCH Auto (RBC) [Entitic mass ]Ordered By: Roberto Whittaker on 08-18-2022 MCH (RBC) [Entitic mass] 29.3 pg 24.7-34.3 [facility] MCHC Auto (RBC) [Mass/Vol]Or dered By: Roberto Whittaker on 08-18-2022 MCHC (RBC) [Mass/Vol] 33.5 g/dL 32.0-35.0 [facility] MCV Auto (RBC) [Entitic vol] Ordered By: Roberto Whittaker on 08-18-2022 MCV (RBC) [Entitic vol] 87.5 fL 80-100 [facility] Monocyte distribution width [Entitic volume] in Blood by AutomatedOrdered By: Roberto Whittaker on 08-18-2022 Monocyte distribution width Auto (Bld) [Entitic vol] 17.66 % 0.00-20.00 [facility] Monocytes Auto (Bld) [#/Vol] Ordered By: Roberto Whittaker on 08-18-2022 Monocytes (Bld) [#/Vol] 0.5 10*3/uL 0.0-0.8 [facility] Monocytes/100 WBC Auto (Bld) Ordered By: Roberto Whittaker on 08-18-2022 Monocytes/100 WBC (Bld) 7.4 % . [facility] Neutrophils Auto (Bld) [#/Vo l]Ordered By: Roberto Whittaker on 08-18-2022 Neutrophils (Bld) [#/Vol] 4.2 10*3/uL 1.8-7.7 [facility] Neutrophils/100 WBC Auto (Bl d)Ordered By: Roberto Whittaker on 08-18-2022 Neutrophils/100 WBC (Bld) 60.4 % . [facility] No Panel InformationOrdered By: Roberto Whittaker on 08-18-2022 Levetiracetam (Keppra) Level 98.1 ug/mL 10.0-40.0 [facility] Comment on above: Performed at: [address] [id number] Director: Sina Hills MD, Phone: [phone] Estimated GFR () > 60 mL/Min [facility] Comment on above: GFR estimated refere nce range: According to KDOQI guidelines, <60 ml/min/1.73m2 is sufficient to diagnose a patient with chronic kidney disease. Pharmacy Creatinine Clearance (Chem 75.25 [facility] Nucleated erythrocytes [Pres ence] in Blood by Automated countOrdered By: Roberto Whittaker on 08-18-2022 Nucleated RBC Auto Ql (Bld) 0.1 /100{WBC} 0-0.5 [facility] Platelet mean volume Auto (B ld) [Entitic vol]Ordered By: Roberto Whittaker on 08-18-2022 Platelet mean volume (Bld) [Entitic vol] 7.8 fL 6.3-10.7 [facility] Platelets Auto (Bld) [#/Vol] Ordered By: Roberto Whittaker on 08-18-2022 Platelets (Bld) [#/Vol] 237 10*3/uL 150-450 [facility] Prolactin [Mass/volume] in S alexis or PlasmaOrdered By: Roberto Whittaker on 08-18-2022 Prolactin [Mass/Vol] 22.52 ng/mL 3.34-26.72 [facility] Protein [Mass/volume] in Ser um or PlasmaOrdered By: Roberto Whittaker on 08-18-2022 Protein [Mass/Vol] 7.3 g/dL 6.1-7.9 [facility] RBC Auto (Bld) [#/Vol]Ordere d By: Roberto Whittaker on 08-18-2022 RBC (Bld) [#/Vol] 4.53 10*6/uL 3.60-5.00 [facility] Serum or plasma alanine white otransferase measurement without P-5'-P (enzymatic activiOrdered By: Roberto Whittaker on 08-18-2022 ALT No additional P-5'-P [Catalytic activity/Vol] 10 U/L 10-60 [facility] Serum or plasma albumin/glob ulin mass ratioOrdered By: Roberto Whittaker on 08-18-2022 Albumin/Globulin [Mass ratio] 1.7 {ratio} [facility] Serum or plasma anion gap de terminationOrdered By: Roberto Whittaker on 08-18-2022 Anion gap [Moles/Vol] 11.9 mmol/L 6.0-15.0 [facility] Serum or plasma chloride melonie surement (moles/volume)Ordered By: Roberto Whittaker on 08-18-2022 Chloride [Moles/Vol] 103 mmol/L 95-114 [facility] Serum or plasma glucose randi urement (mass/volume)Ordered By: Roberto Whittaker on 08-18-2022 Glucose [Mass/Vol] 83 mg/dL 70-100 [facility] Comment on above: ADA recommended refe rence rangeRandom Glucose Reference Range is dependent on time and content of last meal. Glucose of more than 200 mg/dL in a nonstressed, ambulatory subject supports the diagnosis of Diabetes Mellitus. Serum or plasma potassium me asurement (moles/volume)Ordered By: Roberto Whittaker on 08-18-2022 Potassium [Moles/Vol] 3.6 mmol/L 3.5-5.1 [facility] Serum or plasma sodium measu rement (moles/volume)Ordered By: Roberto Whittaker on 08-18-2022 Sodium [Moles/Vol] 138 mmol/L 136-146 [facility] Serum or plasma total biliru bin measurement (mass/volume)Ordered By: Roberto Whittaker on 08-18-2022 Bilirubin [Mass/Vol] 0.8 mg/dL 0.3-1.2 [facility] Urea nitrogen [Mass/volume] in Serum or PlasmaOrdered By: Roberto Whittaker on 08-18-2022 Urea nitrogen [Mass/Vol] 10 mg/dL 9-23 [facility] WBC Auto (Bld) [#/Vol]Ordere d By: Roberto Whittaker on 08-18-2022 WBC (Bld) [#/Vol] 6.9 10*3/uL 3.8-11.6 [facility] Amphetamine Screen Ql (U)Ord ered By: Attila Nelson on 07-27-2022 Amphetamines Ql (U) Negative Negative [facility] Automated erythrocytes count in urine sediment (number/area)Ordered By: Attila Nelson on 07-27-2022 RBC Auto (Urine sed) [#/Area] 50-100 [HPF] 0-4 [facility] Automated leukocytes count i n urine sediment (number/area)Ordered By: Attila Nelson on 07-27-2022 WBC Auto (Urine sed) [#/Area] 3-4 [HPF] 0-4 [facility] Barbiturates [Presence] in U rineOrdered By: Attila Nelson on 07-27-2022 Barbiturates Ql (U) Negative Negative [facility] Basophils Auto (Bld) [#/Vol] Ordered By: Attila Nelson on 07-27-2022 Basophils (Bld) [#/Vol] 0.0 10*3/uL 0.0-0.2 [facility] Basophils/100 WBC Auto (Bld) Ordered By: Attila Nelson on 07-27-2022 Basophils/100 WBC (Bld) 0.4 % . [facility] Benzodiazepines [Presence] i n UrineOrdered By: Attila Nelson on 07-27-2022 Benzodiazepines Ql (U) Negative [facility] Bilirubin Test strip Ql (U)O rdered By: Attila Nelson on 07-27-2022 Bilirubin Ql (U) Negative Negative [facility] Body fluid albumin measureme nt (mass/volume)Ordered By: Attila Nelson on 07-27-2022 Albumin (Body fld) [Mass/Vol] 4.5 g/dL 3.2-5.5 [facility] Cannabinoids [Presence] in U rine by Screen methodOrdered By: Attila Nelson on 07-27-2022 Cannabinoids Screen Ql (U) Positive Negative [facility] Comment on above: These are unconfirme d results and should not be used for legal purposes. Drug Cut-Off Concentration: AMPH 1000 ng/mL DOMINIQUE 200 ng/mL BRICE 200 ng/mL COCM 300 ng/mL OP 300 ng/mL PCP 25 ng/mL THC 20 ng/mL Color Auto (U)Ordered By: Cezar Nelson on 07-27-2022 Color (U) Yellow Yellow [facility] Creatinine and Glomerular fi ltration rate.predicted panel (S/P/Bld)Ordered By: Attila Nelson on 07-27-2022 Creatinine [Mass/Vol] 0.78 mg/dL 0.44-1.03 [facility] Eosinophils Auto (Bld) [#/Vo l]Ordered By: Attila Nelson on 07-27-2022 Eosinophils (Bld) [#/Vol] 0.0 10*3/uL 0.0-0.45 [facility] Eosinophils/100 WBC Auto (Bl d)Ordered By: Attila Nelson on 07-27-2022 Eosinophils/100 WBC (Bld) 0.5 % . [facility] Erythrocyte distribution wid th Auto (RBC) [Ratio]Ordered By: Attila Nelson on 07-27-2022 Erythrocyte distribution width (RBC) [Ratio] 13.7 % 11.9-15.3 [facility] Estimated glomerular filtrat ion rate (GFR) non- AmericanOrdered By: Attila Nelson on 07-27-2022 GFR/1.73 sq M.predicted among non-blacks MDRD (S/P/Bld) [Vol rate/Area] > 60 mL/Min [facility] Globulin Calc (S) [Mass/Vol] Ordered By: Attila Nelson on 07-27-2022 Globulin (S) [Mass/Vol] 3.1 g/dL [facility] HCG ( test) IA.rapi d Ql (U)Ordered By: Attila Nelson on 07-27-2022 HCG ( test) Ql (U) Negative [facility] Hematocrit Auto (Bld) [Volum e fraction]Ordered By: Attila Nelson on 07-27-2022 Hematocrit (Bld) [Volume fraction] 40.5 % 34.0-46.4 [facility] Hemoglobin [Mass/volume] in BloodOrdered By: Attila Nelson on 07-27-2022 Hemoglobin (Bld) [Mass/Vol] 13.7 g/dL 11.8-15.4 [facility] Ketones Auto test strip (U) [Mass/Vol]Ordered By: Attila Nelson on 07-27-2022 Ketones (U) [Mass/Vol] Negative Negative [facility] - Drug toxicology Ordered By: Attila Nelson on 07-27-2022 Opiates Ql (U) Negative Negative [facility] - UrinalysisOrder ed By: Attila Nelson on 07-27-2022 Hyaline casts LM Ql (Urine sed) 0-8 [LPF] 0-8 [facility] Leukocytes [#/volume] correc manjula for nucleated erythrocytes in Blood by Automated counOrdered By: Attila Nelosn on 07-27-2022 WBC corrected for nucl RBC Auto (Bld) [#/Vol] 6.8 10*3/uL 3.8-11.6 [facility] Lymphocytes Auto (Bld) [#/Vo l]Ordered By: Attila Nelson on 07-27-2022 Lymphocytes (Bld) [#/Vol] 2.9 10*3/uL 1.00-4.8 [facility] Lymphocytes/100 WBC Auto (Bl d)Ordered By: Attila Nelson on 07-27-2022 Lymphocytes/100 WBC (Bld) 42.2 % . [facility] MCH Auto (RBC) [Entitic mass ]Ordered By: Attila Nelson on 07-27-2022 MCH (RBC) [Entitic mass] 29.6 pg 24.7-34.3 [facility] MCHC Auto (RBC) [Mass/Vol]Or dered By: Attila Nelson on 07-27-2022 MCHC (RBC) [Mass/Vol] 33.8 g/dL 32.0-35.0 [facility] MCV Auto (RBC) [Entitic vol] Ordered By: Attila Nelson on 07-27-2022 MCV (RBC) [Entitic vol] 87.6 fL 80-100 [facility] Monocyte distribution width [Entitic volume] in Blood by AutomatedOrdered By: Attila Nelson on 07-27-2022 Monocyte distribution width Auto (Bld) [Entitic vol] 17.82 % 0.00-20.00 [facility] Monocytes Auto (Bld) [#/Vol] Ordered By: Attila Nelson on 07-27-2022 Monocytes (Bld) [#/Vol] 0.4 10*3/uL 0.0-0.8 [facility] Monocytes/100 WBC Auto (Bld) Ordered By: Attila Nelson on 07-27-2022 Monocytes/100 WBC (Bld) 5.7 % . [facility] Neutrophils Auto (Bld) [#/Vo l]Ordered By: Attila Nelson on 07-27-2022 Neutrophils (Bld) [#/Vol] 3.4 10*3/uL 1.8-7.7 [facility] Neutrophils/100 WBC Auto (Bl d)Ordered By: Attila Nelson on 07-27-2022 Neutrophils/100 WBC (Bld) 51.2 % . [facility] Nitrite Test strip Ql (U)Ord ered By: Attila Nelson on 07-27-2022 Nitrite Ql (U) Negative Negative [facility] No Panel InformationOrdered By: Attila Nelson on 07-27-2022 Estimated GFR () > 60 mL/Min [facility] Comment on above: GFR estimated refere nce range: According to KDOQI guidelines, <60 ml/min/1.73m2 is sufficient to diagnose a patient with chronic kidney disease. Pharmacy Creatinine Clearance (Chem 85.01 [facility] Nucleated erythrocytes [Pres ence] in Blood by Automated countOrdered By: Attila Nelson on 07-27-2022 Nucleated RBC Auto Ql (Bld) 0.2 /100{WBC} 0-0.5 [facility] Phencyclidine Screen Ql (U)O rdered By: Attila Nelson on 07-27-2022 Phencyclidine Ql (U) Negative Negative [facility] Platelet mean volume Auto (B ld) [Entitic vol]Ordered By: Attila Nelson on 07-27-2022 Platelet mean volume (Bld) [Entitic vol] 8.3 fL 6.3-10.7 [facility] Platelets Auto (Bld) [#/Vol] Ordered By: Attila Nelson on 07-27-2022 Platelets (Bld) [#/Vol] 278 10*3/uL 150-450 [facility] Prolactin [Mass/volume] in S alexis or PlasmaOrdered By: Attila Nelson on 07-27-2022 Prolactin [Mass/Vol] 20.59 ng/mL 3.34-26.72 [facility] Protein Auto test strip (U) [Mass/Vol]Ordered By: Attila Nelson on 07-27-2022 Protein (U) [Mass/Vol] Trace mg/dL Negative [facility] Protein [Mass/volume] in Ser um or PlasmaOrdered By: Attila Nelson on 07-27-2022 Protein [Mass/Vol] 7.6 g/dL 6.1-7.9 [facility] RBC Auto (Bld) [#/Vol]Ordere d By: Attila Nelson on 07-27-2022 RBC (Bld) [#/Vol] 4.62 10*6/uL 3.60-5.00 [facility] Serum or plasma alanine white otransferase measurement without P-5'-P (enzymatic activiOrdered By: Attila Nelson on 07-27-2022 ALT No additional P-5'-P [Catalytic activity/Vol] 9 U/L 10-60 [facility] Serum or plasma albumin/glob ulin mass ratioOrdered By: Attila Nelson on 07-27-2022 Albumin/Globulin [Mass ratio] 1.5 {ratio} [facility] Serum or plasma alkaline ignacio sphatase measurement (enzymatic activity/volume)Ordered By: Attila Nelson on 07-27-2022 ALP [Catalytic activity/Vol] 49 U/L 32-92 [facility] Serum or plasma anion gap de terminationOrdered By: Attila Nelson on 07-27-2022 Anion gap [Moles/Vol] 16.6 mmol/L 6.0-15.0 [facility] Serum or plasma aspartate am inotransferase measurement (enzymatic activity/volume)Ordered By: Attila Nelson on 07-27-2022 AST [Catalytic activity/Vol] 20 U/L 10-42 [facility] Serum or plasma calcium randi urement (mass/volume)Ordered By: Attila Nelson on 07-27-2022 Calcium [Mass/Vol] 9.6 mg/dL 8.2-10.2 [facility] Serum or plasma chloride melonie surement (moles/volume)Ordered By: Attila Nelson on 07-27-2022 Chloride [Moles/Vol] 103 mmol/L 95-114 [facility] Serum or plasma glucose randi urement (mass/volume)Ordered By: Attila Nelson on 07-27-2022 Glucose [Mass/Vol] 107 mg/dL 70-100 [facility] Comment on above: ADA recommended refe rence rangeRandom Glucose Reference Range is dependent on time and content of last meal. Glucose of more than 200 mg/dL in a nonstressed, ambulatory subject supports the diagnosis of Diabetes Mellitus. Serum or plasma potassium me asurement (moles/volume)Ordered By: Attila Nelson on 07-27-2022 Potassium [Moles/Vol] 3.8 mmol/L 3.5-5.1 [facility] Serum or plasma sodium measu rement (moles/volume)Ordered By: Attila Nelson on 07-27-2022 Sodium [Moles/Vol] 141 mmol/L 136-146 [facility] Serum or plasma total biliru bin measurement (mass/volume)Ordered By: Attila Nelson on 07-27-2022 Bilirubin [Mass/Vol] 0.5 mg/dL 0.3-1.2 [facility] Serum or plasma total carbon dioxide measurement (moles/volume)Ordered By: Attila Nelson on 07-27-2022 CO2 [Moles/Vol] 25.2 mmol/L 22.0-30.0 [facility] Serum or plasma urea nitroge n measurement (mass/volume)Ordered By: Attila Nelson on 07-27-2022 Urea nitrogen [Mass/Vol] 5 mg/dL 03-19 [facility] Specific gravity Auto test s trip (U) [Rel density]Ordered By: Attila Nelson on 07-27-2022 Specific gravity (U) [Rel density] 1.022 1.001-1.03 0 [facility] Squamous epithelial cells de tection in urine sediment by light microscopyOrdered By: Attila Nelson on 07-27-2022 Epithelial cells.squamous LM Ql (Urine sed) 1-2 [HPF] 0-2 [facility] Urine bacteria detection by automated methodOrdered By: Attila Nelson on 07-27-2022 Bacteria Auto Ql (U) None seen None Seen [facility] Urine clarity by refractomet ry automatedOrdered By: Attila Nelson on 07-27-2022 Clarity Refractometry automated (U) Cloudy Clear [facility] Urine cocaine detectionOrder ed By: Attila Nelson on 07-27-2022 Cocaine Ql (U) Negative Negative [facility] Urine glucose measurement by automated test strip (mass/volume)Ordered By: Attila Nelson on 07-27-2022 Glucose Auto test strip (U) [Mass/Vol] Normal mg/dL Normal [facility] Urine hemoglobin detection b y automated test stripOrdered By: Attila Nelson on 07-27-2022 Hemoglobin Auto test strip Ql (U) 3+ Negative [facility] Urine leukocyte esterase det ection by automated test stripOrdered By: Attila Nelson on 07-27-2022 Leukocyte esterase Auto test strip Ql (U) 1+ Negative [facility] Urobilinogen Auto test strip (U) [Mass/Vol]Ordered By: Attila Nelson on 07-27-2022 Urobilinogen (U) [Mass/Vol] Normal mg/dL Normal [facility] WBC Auto (Bld) [#/Vol]Ordere d By: Attila Nelson on 07-27-2022 WBC (Bld) [#/Vol] 6.8 10*3/uL 3.8-11.6 [facility] pH Auto test strip (U)Ordere d By: Attila Nelson on 07-27-2022 pH (U) 7.0 [pH] 5.0-9.0 [facility] CBC AUTO DIFFon 06-12-2022 BASO # 0.0 103/ul Normal 0.0-0.1 [facility] Comment on above: Performed By: #### C MP, HSTROPN #### [facility] [address] [place] [address] Dr. Jovanni Maya Basophils/100 WBC (Bld) 0.2 % Normal 0.2-2.0 [facility] Comment on above: Performed By: #### C MP, HSTROPN #### [facility] [address] [address] [address] Jovanni Maya EO # 0.0 103/ul Normal 0.0-0.7 [facility] Comment on above: Performed By: #### C MP, HSTROPN #### [facility] [address] [address] [address] Jovanni Maya Eosinophils/100 WBC (Bld) 0.1 % Critically low 0.9-7.0 [facility] Comment on above: Performed By: #### C MP, HSTROPN #### [facility] [address] [address] [address] Jovanni Maya Erythrocyte distribution width (RBC) [Ratio] 12.7 % Normal 11.0-15.0 [facility] Comment on above: Performed By: #### C MP, HSTROPN #### [facility] [address] [place] [address] Dr. Jovanni Maya Hematocrit (Bld) [Volume fraction] 38.2 % Normal 36.0-48.0 [facility] Comment on above: Performed By: #### C MP, HSTROPN #### [facility] [address] [address] [address] Jovanni Maya Hemoglobin (Bld) [Mass/Vol] 13.4 g/dL Normal 12.0-16.0 [facility] Comment on above: Performed By: #### C MP, HSTROPN #### [facility] [address] [place] [address] Dr. Jovanni Maya IG # 0.04 10e3/ul Critically high 0.00-0.03 [facility] Comment on above: Performed By: #### C MP, HSTROPN #### [facility] [address] [place] [address] Dr. Jovanni Maya IG % 0.3 % Normal 0.0-0.5 [facility] Comment on above: Performed By: #### C DANIEL, HSTROPN #### [facility] [address] [place] [address] Dr. Jovanni Maya LYMPH # 1.6 103/ul Normal 1.2-3.8 [facility] Comment on above: Performed By: #### C DANIEL, HSTROPN #### [facility] [address] [place] [address] Dr. Jovanni Maya Lymphocytes/100 WBC (Bld) 12.9 % Critically low 20.5-60.0 [facility] Comment on above: Performed By: #### C MP, HSTROPN #### [facility] [address] [place] [address] Dr. Jovanni Maya MANUAL DIFF REQ NO Normal [facility] Comment on above: Performed By: #### C MP, HSTROPN #### [facility] [address] [place] [address] Dr. Jovanni Maya MCH (RBC) [Entitic mass] 29.6 pg Normal 26.7-34.0 [facility] Comment on above: Performed By: #### C MP, HSTROPN #### [facility] [address] [place] [address] Dr. Jovanni Maya MCHC (RBC) [Mass/Vol] 35.1 g/dL Normal 29.9-35.2 [facility] Comment on above: Performed By: #### C MP, HSTROPN #### [facility] [address] [place] [address] Dr. Jovanni Maya MCV (RBC) [Entitic vol] 84.5 fL Normal 81.0-99.0 [facility] Comment on above: Performed By: #### C MP, HSTROPN #### [facility] [address] [place] [address] Dr. Jovanni Maya MONO # 0.6 103/ul Normal 0.3-0.8 [facility] Comment on above: Performed By: #### C MP, HSTROPN #### [facility] [address] [place] [address] Dr. Jovanni Maya Monocytes/100 WBC (Bld) 4.9 % Normal 1.7-12.0 [facility] Comment on above: Performed By: #### C MP, HSTROPN #### [facility] [address] [place] [address] Dr. Jovanni Maya NEUT # 10.4 103/ul Critically high 1.4-6.5 [facility] Comment on above: Performed By: #### C MP, HSTROPN #### [facility] [address] [place] [address] Dr. Jovanni Maya Neutrophils/100 WBC (Bld) 81.6 % Critically high 43.0-75.0 [facility] Comment on above: Performed By: #### C MP, HSTROPN #### [facility] [address] [place] [address] Dr. Jovanni Maya Platelet mean volume (Bld) [Entitic vol] 9.3 fL Critically low 9.5-13.5 [facility] Comment on above: Performed By: #### C MP, HSTROPN #### [facility] [address] [place] [address] Dr. Jovanni Maya PLT 231 103/ul Normal 150-450 [facility] Comment on above: Performed By: #### C MP, HSTROPN #### [facility] [address] [place], [place] [address] Dr. Jovanni Maya RBC 4.52 106/ul Normal 4.20-5.40 [facility] Comment on above: Performed By: #### C MP, HSTROPN #### [facility] [address] [place], [place] [address] Dr. Jovanni Maya WBC 12.7 103/ul Critically high 4.0-11.0 [facility] Comment on above: Performed By: #### C MP, HSTROPN #### [facility] [address] HEAD WO CONon [...] LO TUTTLE Date: 2022-06-12 21:00 Normal [facility] DRUG SCREEN RAPID (URINE)on 06-12-2022 AMP Negative Normal NEGATIVE [facility] Comment on above: Performed By: #### P REG, ACETON #### [facility] [address] [address] [address] Jovanni Maya BAR Negative Normal NEGATIVE [facility] Comment on above: Performed By: #### P REG, ACETON #### [facility] [address] [place] [address] Dr. Jovanni Maya BUP Negative Normal NEGATIVE [facility] Comment on above: Performed By: #### P REG, ACETON #### [facility] [address] [place] [address] Dr. Jovanni Maya BZO Negative Normal NEGATIVE [facility] Comment on above: Performed By: #### P REG, ACETON #### [facility] [address] [place] [address] Dr. Jovanni Maya DARIEN Negative Normal NEGATIVE [facility] Comment on above: Performed By: #### P REG, ACETON #### [facility] [address] [place] [address] Dr. Jovanni Maya CUT-OFFS SEE BELOW Normal [facility] Comment on above: Result [...] Performed By: #### P REG, ACETON #### [facility] [address] [place] [address] Dr. Jovanni Maya DRUG CUT HEADER DRUG CLASS TEST SYST EM CUT-OFF CONCENTRATIONS ARE FOLLOWS: Normal [facility] Comment on above: Performed By: #### P REG, ACETON #### [facility] [address] [place] [address] Dr. Jovanni Maya mAMP Negative Normal NEGATIVE [facility] Comment on above: Performed By: #### P REG, ACETON #### [facility] [address] [place] [address] Dr. Jovanni Maya MTD Negative Normal NEGATIVE [facility] Comment on above: Performed By: #### P REG, ACETON #### [facility] [address] [place] [address] Dr. Jovanni Maya OPI Positive Abnormal NEGATIVE [facility] Comment on above: Performed By: #### P REG, ACETON #### [facility] [address] [place] [address] Dr. Jovanni Maya OXY Negative Normal NEGATIVE [facility] Comment on above: Performed By: #### P REG, ACETON #### [facility] [address] [place] [address] Dr. Jovanni Maya PCP Negative Normal NEGATIVE [facility] Comment on above: Performed By: #### P REG, ACETON #### [facility] [address] [place] [address] Dr. Jovanni Maya PPX Negative Normal NEGATIVE [facility] Comment on above: Performed By: #### P REG, ACETON #### [facility] [address] [place] [address] Dr. Jovanni Maya TCA Negative Normal NEGATIVE [facility] Comment on above: Performed By: #### P REG, ACETON #### [facility] [address] [place] [address] Dr. Jovanni Maya THC Positive Abnormal NEGATIVE [facility] Comment on above: Performed By: #### P REG, ACETON #### [facility] [address] [place] [address] Dr. Jovanni Maya ER URINE PROFILEon 2 Bilirubin Ql (U) Negative Normal NEGATIVE [facility] Comment on above: Performed By: #### C MP, HSTROPN #### [facility] [address] [place] [address] Dr. Jovanni Maya Clarity (U) CLEAR Normal CLEAR [facility] [facility] Comment on above: Performed By: #### C MP, HSTROPN #### [facility] [address] [place] [address] Dr. Jovanni Maya Color (U) LT. YELLOW Normal YELLOW [facility] Comment on above: Performed By: #### C MP, HSTROPN #### [facility] [address] [address] [address] Jovanni ANTOINE A micrscopic examina tion will be performed if indicated. Normal [facility] Comment on above: Performed By: #### C MP, HSTROPN #### [facility] [address] [address] [address] Jovanni Maya Glucose Ql (U) Negative Normal NEGATIVE [facility] Comment on above: Performed By: #### C MP, HSTROPN #### [facility] [address] [place] [address] Dr. Jovanni Maya Hemoglobin Ql (U) Negative Normal NEGATIVE [facility] Comment on above: Performed By: #### C MP, HSTROPN #### [facility] [address] [place] [address] Dr. Jovanni Maya Ketones Ql (U) Negative Normal NEGATIVE [facility] Comment on above: Performed By: #### C MP, HSTROPN #### [facility] [address] [place] [address] Dr. Jovanni Maya LEUKOCYTES Negative Normal NEGATIVE [facility] Comment on above: Performed By: #### C MP, HSTROPN #### [facility] [address] [place] [address] Dr. Jovanni Maya Nitrite Ql (U) Negative Normal NEGATIVE [facility] Comment on above: Performed By: #### C MP, HSTROPN #### [facility] [address] [address] [address] Jovanni Maya pH (U) 8.5 [pH] Normal 5-9 [facility] Comment on above: Performed By: #### C MP, HSTROPN #### [facility] [address] [place] [address] Dr. Jovanni Maya SPEC GRAVITY 1.015 Normal 1.005-<=1. 025 [facility] Comment on above: Performed By: #### C MP, HSTROPN #### [facility] [address] [place] [address] Dr. Jovanni Maya UA PROTEIN Negative Normal NEGATIVE/ TRACE [facility] Comment on above: Performed By: #### C MP, HSTROPN #### [facility] [address] [place] [address] Dr. Jovanni Maya UR MICRO IND NOT INDICATED Normal [facility] Comment on above: Performed By: #### C MP, HSTROPN #### [facility] [address] [place] [address] Dr. Jovanni Maya Urobilinogen Qn (U) 0.2 {Carlos A'U}/dL Normal 0.2 - 1. 0 [facility] Comment on above: Performed By: #### C DANIEL, HSTROPN #### [facility] [address] [place] [address] Dr. Jovanni Maya URon 06-12-2022 , QUAL Negative Normal NEGATIVE [facility] Comment on above: Performed By: #### C DANIEL, HSTROPN #### [facility] [address] [place] [address] Dr. Jovanni Maya PROF 14(COMP METB)on 022 Albumin [Mass/Vol] 4.1 g/dL Normal 3.4-5.0 [facility] Comment on above: Performed By: #### C MP, HSTROPN #### [facility] [address] [place] [address] Dr. Jovanni Maya Albumin/Globulin [Mass ratio] 1.2 {ratio} Normal [facility] Comment on above: Performed By: #### C MP, HSTROPN #### [facility] [address] [place] [address] Dr. Jovanni Maya ALP [Catalytic activity/Vol] 53 U/L Normal 46-116 [facility] Comment on above: Performed By: #### C MP, HSTROPN #### [facility] [address] [place] [address] Dr. Jovanni Maya ALT [Catalytic activity/Vol] 11 U/L Critically low 14-59 [facility] Comment on above: Performed By: #### C MP, HSTROPN #### [facility] [address] [address] [address] Jovanni Maya Anion gap [Moles/Vol] 9.5 mmol/L Normal [facility] Comment on above: Performed By: #### C MP, HSTROPN #### [facility] [address] [address] [address] Jovanni Maya AST [Catalytic activity/Vol] 21 U/L Normal 15-37 [facility] Comment on above: Performed By: #### C MP, HSTROPN #### [facility] [address] [address] [address] Jovanni Maya Bilirubin [Mass/Vol] 0.3 mg/dL Normal 0.2-1.0 [facility] Comment on above: Performed By: #### C MP, HSTROPN #### [facility] [address] [address] [address] Jovanni Maya Calcium [Mass/Vol] 8.7 mg/dL Normal 8.5-10.1 [facility] Comment on above: Performed By: #### C MP, HSTROPN #### [facility] [address] [address] [address] Jovanni Maya Chloride [Moles/Vol] 104 mmol/L Normal 98-107 [facility] Comment on above: Performed By: #### C MP, HSTROPN #### [facility] [address] [address] [address] Jovanni Maya CO2 [Moles/Vol] 28.0 mmol/L Normal 21.0-32.0 [facility] Comment on above: Performed By: #### C MP, HSTROPN #### [facility] [address] [address] [address] Jovanni Maya Creatinine [Mass/Vol] 0.79 mg/dL Normal 0.55-1.02 [facility] Comment on above: Performed By: #### C MP, HSTROPN #### [facility] [address] [address] [address] Jovanni Maya EGFR-AF SCOTTISH >60 Normal >=60 [facility] Comment on above: Performed By: #### C MP, HSTROPN #### [facility] [address] [address] [address] Jovanni Maya EGFR-NON AF SCOTTISH >60 Normal >=60 [facility] Comment on above: Performed By: #### C MP, HSTROPN #### [facility] [address] [address] [address] Jovanni Maya Globulin (S) [Mass/Vol] 3.5 g/dL Normal [facility] Comment on above: Performed By: #### C MP, HSTROPN #### [facility] [address] [place] [address] Dr. Jovanni Maya Glucose [Mass/Vol] 102 mg/dL Normal 74-[address] [facility] Comment on above: Performed By: #### C MP, HSTROPN #### [facility] [address] [place] [address] Dr. Jovanni Maya Potassium [Moles/Vol] 3.5 mmol/L Normal 3.5-5.1 [facility] Comment on above: Performed By: #### C MP, HSTROPN #### [facility] [address] [place] [address] Dr. Jovanni Maya Protein [Mass/Vol] 7.6 g/dL Normal 6.4-8.[address] [facility] Comment on above: Performed By: #### C MP, HSTROPN #### [facility] [address] [address] [address] Jovanni Maya Sodium [Moles/Vol] 138 mmol/L Normal 136-[address] [facility] Comment on above: Performed By: #### C MP, HSTROPN #### [facility] [address] [place] [address] Dr. Jovanni Maya Urea nitrogen [Mass/Vol] 9.0 mg/dL Normal 7.0-18.0 [facility] Comment on above: Performed By: #### C MP, HSTROPN #### [facility] [address] [place] [address] Dr. Jovanni Maya Urea nitrogen/Creatinine [Mass ratio] 11.4 mg/mg Normal [facility] Comment on above: Performed By: #### C MP, HSTROPN #### [facility] [address] [place] [address] Dr. Jovanni Maya CBC AUTO DIFFon 05-24-2022 BASO # 0.0 103/ul Normal 0.0-0.1 [facility] Comment on above: Performed By: #### C MP, HSTROPN #### [facility] [address] [place] [address] Dr. Jovanni Maya Basophils/100 WBC (Bld) 0.1 % Critically low 0.2-2.0 [facility] Comment on above: Performed By: #### C MP, HSTROPN #### [facility] [address] [place] [address] Dr. Jovanni Maya EO # 0.0 103/ul Normal 0.0-0.7 [facility] Comment on above: Performed By: #### C MP, HSTROPN #### [facility] [address] [place] [address] Dr. Jovanni Maya Eosinophils/100 WBC (Bld) 0.1 % Critically low 0.9-7.0 [facility] Comment on above: Performed By: #### C MP, HSTROPN #### [facility] [address] [place] [address] Dr. Jovanni Maya Erythrocyte distribution width (RBC) [Ratio] 13.1 % Normal 11.0-15.0 [facility] Comment on above: Performed By: #### C MP, HSTROPN #### [facility] [address] [place] [address] Dr. Jovanni Maya Hematocrit (Bld) [Volume fraction] 37.2 % Normal 36.0-48.0 [facility] Comment on above: Performed By: #### C MP, HSTROPN #### [facility] [address] [place] [address] Dr. Jovanni Maya Hemoglobin (Bld) [Mass/Vol] 13.0 g/dL Normal 12.0-16.0 [facility] Comment on above: Performed By: #### C MP, HSTROPN #### [facility] [address] [place] [address] Dr. Jovanni Maya IG # 0.02 10e3/ul Normal 0.00-0.03 [facility] Comment on above: Performed By: #### C MP, HSTROPN #### [facility] [address] [place] [address] Dr. Jovanni Maya IG % 0.3 % Normal 0.0-0.5 [facility] Comment on above: Performed By: #### C MP, HSTROPN #### [facility] [address] [place] [address] Dr. Jovanni Maya LYMPH # 1.4 103/ul Normal 1.2-3.8 [facility] Comment on above: Performed By: #### C DANIEL, HSTROPN #### [facility] [address] [place] [address] Dr. Jovanni Maya Lymphocytes/100 WBC (Bld) 20.7 % Normal 20.5-60.0 [facility] Comment on above: Performed By: #### C DANIEL, HSTROPN #### [facility] [address] [place] [address] Dr. Jovanni Maya MANUAL DIFF REQ NO Normal [facility] [place] Comment on above: Performed By: #### C MP, HSTROPN #### [facility] [address] [place] [address] Dr. Jovanni Maya MCH (RBC) [Entitic mass] 29.5 pg Normal 26.7-34.0 [facility] Comment on above: Performed By: #### C MP, HSTROPN #### [facility] [address] [place] [address] Dr. Jovanni Maya MCHC (RBC) [Mass/Vol] 34.9 g/dL Normal 29.9-35.2 [facility] Comment on above: Performed By: #### C MP, HSTROPN #### [facility] [address] [place], [place] [id number] Dr. Jovanni Maya MCV (RBC) [Entitic vol] 84.4 fL Normal 81.0-99.0 [facility] Comment on above: Performed By: #### C MP, HSTROPN #### [facility] [address] [place] [address] Dr. Jovanni Maya MONO # 0.5 103/ul Normal 0.3-0.8 [facility] Comment on above: Performed By: #### C MP, HSTROPN #### [facility] [address] [place] [address] Dr. Jovanni Maya Monocytes/100 WBC (Bld) 7.8 % Normal 1.7-12.0 [facility] Comment on above: Performed By: #### C MP, HSTROPN #### [facility] [address] [place] [address] Dr. Jovanni Maya NEUT # 4.8 103/ul Normal 1.4-6.5 [facility] Comment on above: Performed By: #### C MP, HSTROPN #### [facility] [address] [place] [address] Dr. Jovanni Maya Neutrophils/100 WBC (Bld) 71.0 % Normal 43.0-75.0 [facility] Comment on above: Performed By: #### C MP, HSTROPN #### [facility] [address] [place] [address] Dr. Jovanni Maya Platelet mean volume (Bld) [Entitic vol] 9.5 fL Normal 9.5-13.5 [facility] Comment on above: Performed By: #### C MP, HSTROPN #### [facility] [address] [place] [address] Dr. Jovanni Maya PLT 228 103/ul Normal 150-450 [facility] Comment on above: Performed By: #### C MP, HSTROPN #### [facility] [address] [place] [address] Dr. Jovanni Maya RBC 4.41 106/ul Normal 4.20-5.40 [facility] Comment on above: Performed By: #### C MP, HSTROPN #### [facility] [address] [address] [address] Jovanni Maya WBC 6.8 103/ul Normal 4.0-11.0 [facility] Comment on above: Performed By: #### C MP, HSTROPN #### [facility] [address] [place] [address] Dr. Jovanni Maya PROF 14(COMP METB)on 022 Albumin [Mass/Vol] 4.0 g/dL Normal 3.4-5.0 [facility] Comment on above: Performed By: #### C DANIEL, HSTROPN #### [facility] [address] [place] [address] Dr. Jovanni Maya Albumin/Globulin [Mass ratio] 9.3 {ratio} Normal [facility] Comment on above: Performed By: #### C DANIEL, HSTROPN #### [facility] [address] [place] [address] Dr. Jovanni Maya ALP [Catalytic activity/Vol] 56 U/L Normal 46-116 [facility] Comment on above: Performed By: #### C DANIEL, HSTROPN #### [facility] [address] [place] [address] Dr. Jovanni Maya ALT [Catalytic activity/Vol] 8 U/L Critically low 14-59 [facility] Comment on above: Performed By: #### C DANIEL, HSTROPN #### [facility] [address] [address] [address] Jovanni Maya Anion gap [Moles/Vol] 9.3 mmol/L Normal [facility] Comment on above: Performed By: #### C MP, HSTROPN #### [facility] [address] [place] [address] Dr. Jovanni Maya AST [Catalytic activity/Vol] 12 U/L Critically low 15-37 [facility] Comment on above: Performed By: #### C MP, HSTROPN #### [facility] [address] [place] [address] Dr. Jovanni Maya Bilirubin [Mass/Vol] 0.3 mg/dL Normal 0.2-1.0 [facility] Comment on above: Performed By: #### C DANIEL, HSTROPN #### [facility] [address] [address] [address] Jovanni Maya Calcium [Mass/Vol] 8.6 mg/dL Normal 8.5-10.1 [facility] Comment on above: Performed By: #### C MP, HSTROPN #### [facility] [address] [address] [address] Jovanni Maya Chloride [Moles/Vol] 104 mmol/L Normal 98-107 [facility] Comment on above: Performed By: #### C DANIEL, HSTROPN #### [facility] [address] [place] [address] Dr. Jovanni Maya CO2 [Moles/Vol] 28.1 mmol/L Normal 21.0-32.0 [facility] Comment on above: Performed By: #### C DANIEL, HSTROPN #### [facility] [address] [place] [address] Dr. Jovanni Maya Creatinine [Mass/Vol] 0.71 mg/dL Normal 0.55-1.02 [facility] Comment on above: Performed By: #### C DANIEL, HSTROPN #### [facility] [address] [place] [address] Dr. Jovanni Maya EGFR-AF SCOTTISH >60 Normal >=60 [facility] Comment on above: Performed By: #### C DANIEL, HSTROPN #### [facility] [address] [place] [address] Dr. Jovanni Maya EGFR-NON AF SCOTTISH >60 Normal >=60 [facility] Comment on above: Performed By: #### C DANIEL, HSTROPN #### [facility] [address] [place] [address] Dr. Jovanni Maya Globulin (S) [Mass/Vol] 3.4 g/dL Normal [facility] Comment on above: Performed By: #### C DANIEL, HSTROPN #### [facility] [address] [address] [address] Jovanni Maya Glucose [Mass/Vol] 109 mg/dL Critically high 74-106 [facility] Comment on above: Performed By: #### C MP, HSTROPN #### [facility] [address] [address] [address] Jovanni Maya Potassium [Moles/Vol] 3.4 mmol/L Critically low 3.5-5.1 [facility] Comment on above: Performed By: #### C MP, HSTROPN #### [facility] [address] [address] [address] Jovanni Maya Protein [Mass/Vol] 7.4 g/dL Normal 6.4-8.[address] [facility] Comment on above: Performed By: #### C MP, HSTROPN #### [facility] [address] [address] [address] Jovanni Maya Sodium [Moles/Vol] 138 mmol/L Normal 136-145 [facility] Comment on above: Performed By: #### C MP, HSTROPN #### [facility] [address] [address] [address] Jovanni Maya Urea nitrogen [Mass/Vol] 12.0 mg/dL Normal 7.0-18.0 [facility] Comment on above: Performed By: #### C MP, HSTROPN #### [facility] [address] [address] [address] Jovanni Maya Urea nitrogen/Creatinine [Mass ratio] 16.9 mg/mg Normal [facility] Comment on above: Performed By: #### C MP, HSTROPN #### [facility] [address] [address] [address] Jovanni Maya Basophils Auto (Bld) [#/Vol] Ordered By: Aman Cortes on 05-18-2022 Basophils (Bld) [#/Vol] 0.0 10*3/uL 0.0-0.2 [facility] Basophils/100 WBC Auto (Bld) Ordered By: Aman Cortes on 05-18-2022 Basophils/100 WBC (Bld) 0.3 % . [facility] Creatinine and Glomerular fi ltration rate.predicted panel (S/P/Bld)Ordered By: Aman Cortes on 05-18-2022 Creatinine [Mass/Vol] 0.74 mg/dL 0.44-1.03 [facility] Eosinophils Auto (Bld) [#/Vo l]Ordered By: Aman Cortes on 05-18-2022 Eosinophils (Bld) [#/Vol] 0.1 10*3/uL 0.0-0.45 [facility] Eosinophils/100 WBC Auto (Bl d)Ordered By: Aman Cortes on 05-18-2022 Eosinophils/100 WBC (Bld) 0.9 % . [facility] Erythrocyte distribution wid th Auto (RBC) [Ratio]Ordered By: Aman oCrtes on 05-18-2022 Erythrocyte distribution width (RBC) [Ratio] 14.5 % 11.9-15.3 [facility] Estimated glomerular filtrat ion rate (GFR) non- AmericanOrdered By: Aman Cortes on 05-18-2022 GFR/1.73 sq M.predicted among non-blacks MDRD (S/P/Bld) [Vol rate/Area] > 60 mL/Min [facility] Hematocrit Auto (Bld) [Volum e fraction]Ordered By: Aman Cortes on 05-18-2022 Hematocrit (Bld) [Volume fraction] 40.4 % 34.0-46.4 [facility] Hemoglobin [Mass/volume] in BloodOrdered By: Aman Cortes on 05-18-2022 Hemoglobin (Bld) [Mass/Vol] 13.0 g/dL 11.8-15.4 [facility] - Hematology and Cell countsOrdered By: Aman Cortes on 05-18-2022 Nucleated RBC/100 WBC (Bld) [Ratio] 0.1 % 0-0.5 [facility] Leukocytes [#/volume] in Blo od by Automated countOrdered By: Aman Cortes on 05-18-2022 WBC (Bld) [#/Vol] 5.6 10*3/uL 4.5-11.0 [facility] Lymphocytes Auto (Bld) [#/Vo l]Ordered By: Aman Cortes on 05-18-2022 Lymphocytes (Bld) [#/Vol] 2.0 10*3/uL 1.00-4.8 [facility] Lymphocytes/100 WBC Auto (Bl d)Ordered By: Aman Cortes on 05-18-2022 Lymphocytes/100 WBC (Bld) 36.8 % . [facility] MCH Auto (RBC) [Entitic mass ]Ordered By: Aman Cortes on 05-18-2022 MCH (RBC) [Entitic mass] 28.6 pg 24.7-34.3 [facility] MCHC Auto (RBC) [Mass/Vol]Or dered By: Aman Cortes on 05-18-2022 MCHC (RBC) [Mass/Vol] 32.3 g/dL 32.0-35.0 [facility] MCV Auto (RBC) [Entitic vol] Ordered By: Aman Cortes on 05-18-2022 MCV (RBC) [Entitic vol] 88.4 fL 80-100 [facility] Monocytes Auto (Bld) [#/Vol] Ordered By: Aman Cortes on 05-18-2022 Monocytes (Bld) [#/Vol] 0.4 10*3/uL 0.0-0.8 [facility] Monocytes/100 WBC Auto (Bld) Ordered By: Aman Cortes on 05-18-2022 Monocytes/100 WBC (Bld) 7.3 % . [facility] Neutrophils Auto (Bld) [#/Vo l]Ordered By: Aman Cortes on 05-18-2022 Neutrophils (Bld) [#/Vol] 3.0 10*3/uL 1.8-7.7 [facility] Neutrophils/100 WBC Auto (Bl d)Ordered By: Aman Cortes on 05-18-2022 Neutrophils/100 WBC (Bld) 54.7 % . [facility] No Panel InformationOrdered By: Aman Cortes on 05-18-2022 Estimated GFR () > 60 mL/Min [facility] Comment on above: GFR estimated refere nce range: According to KDOQI guidelines, <60 ml/min/1.73m2 is sufficient to diagnose a patient with chronic kidney disease. Pharmacy Creatinine Clearance (Chem 92.05 [facility] Platelet mean volume Auto (B ld) [Entitic vol]Ordered By: Aman Cortes on 05-18-2022 Platelet mean volume (Bld) [Entitic vol] 8.1 fL 6.3-10.7 [facility] Platelets Auto (Bld) [#/Vol] Ordered By: Aman Cortes on 05-18-2022 Platelets (Bld) [#/Vol] 268 10*3/uL 150-450 [facility] Prolactin [Mass/volume] in S alexis or PlasmaOrdered By: Aman Cortes on 05-18-2022 Prolactin [Mass/Vol] 8.64 ng/mL 3.34-26.72 [facility] RBC Auto (Bld) [#/Vol]Ordere d By: Aman Cortes on 05-18-2022 RBC (Bld) [#/Vol] 4.57 10*6/uL 3.60-5.00 [facility] Serum or plasma anion gap de terminationOrdered By: Aman Cortes on 05-18-2022 Anion gap [Moles/Vol] 10.1 mmol/L 6.0-15.0 [facility] Serum or plasma calcium randi urement (mass/volume)Ordered By: Aman Cortes on 05-18-2022 Calcium [Mass/Vol] 9.0 mg/dL 8.2-10.2 [facility] Serum or plasma chloride melonie surement (moles/volume)Ordered By: Aman Cortes on 05-18-2022 Chloride [Moles/Vol] 103 mmol/L 95-114 [facility] Serum or plasma glucose randi urement (mass/volume)Ordered By: Aman Cortes on 05-18-2022 Glucose [Mass/Vol] 110 mg/dL 70-100 [facility] Comment on above: ADA recommended refe rence rangeRandom Glucose Reference Range is dependent on time and content of last meal. Glucose of more than 200 mg/dL in a nonstressed, ambulatory subject supports the diagnosis of Diabetes Mellitus. Serum or plasma potassium me asurement (moles/volume)Ordered By: Aman Cortes on 05-18-2022 Potassium [Moles/Vol] 3.8 mmol/L 3.5-5.1 [facility] Serum or plasma sodium measu rement (moles/volume)Ordered By: Aman Cortes on 05-18-2022 Sodium [Moles/Vol] 138 mmol/L 136-146 [facility] Serum or plasma total carbon dioxide measurement (moles/volume)Ordered By: Aman Cortes on 05-18-2022 CO2 [Moles/Vol] 28.7 mmol/L 22.0-30.0 [facility] Serum or plasma urea nitroge n measurement (mass/volume)Ordered By: Aman Cortes on 05-18-2022 Urea nitrogen [Mass/Vol] 10 mg/dL 03-19 [facility] CBC AUTO DIFFon 05-15-2022 BASO # 0.0 103/ul Normal 0.0-0.1 [facility] Comment on above: Performed By: #### P REG, ACETON #### [facility] [address] [place] [address] Dr. Jovanni Maya Basophils/100 WBC (Bld) 0.3 % Normal 0.2-2.0 [facility] Comment on above: Performed By: #### P REG, ACETON #### [facility] [address] [address] [address] Jovanni Maya EO # 0.0 103/ul Normal 0.0-0.7 [facility] Comment on above: Performed By: #### P REG, ACETON #### [facility] [address] [address] [address] Jovanni Maya Eosinophils/100 WBC (Bld) 0.3 % Critically low 0.9-7.0 [facility] Comment on above: Performed By: #### P REG, ACETON #### [facility] [address] [place] [address] Dr. Jovanni Maya Erythrocyte distribution width (RBC) [Ratio] 13.1 % Normal 11.0-15.0 [facility] Comment on above: Performed By: #### P REG, ACETON #### [facility] [address] [place], [place] [id number] Dr. Jovanni Maya Hematocrit (Bld) [Volume fraction] 39.5 % Normal 36.0-48.0 [facility] Comment on above: Performed By: #### P REG, ACETON #### [facility] [address] [place] [address] Dr. Jovanni Maya Hemoglobin (Bld) [Mass/Vol] 13.5 g/dL Normal 12.0-16.0 [facility] Comment on above: Performed By: #### P REG, ACETON #### [facility] [address] [place] [address] Dr. Jovanni Maya IG # 0.04 10e3/ul Critically high 0.00-0.03 [facility] Comment on above: Performed By: #### P REG, ACETON #### [facility] [address] [place] [address] Dr. Jovanni Maya IG % 0.4 % Normal 0.0-0.5 [facility] Comment on above: Performed By: #### P REG, ACETON #### [facility] [address] [place] [address] Dr. Jovanni Maya LYMPH # 1.9 103/ul Normal 1.2-3.8 [facility] Comment on above: Performed By: #### P REG, ACETON #### [facility] [address] [place] [address] Dr. Jovanni Maya Lymphocytes/100 WBC (Bld) 17.4 % Critically low 20.5-60.0 [facility] Comment on above: Performed By: #### P REG, ACETON #### [facility] [address] [place] [address] Dr. Jovanni Maya MANUAL DIFF REQ NO Normal [facility] Comment on above: Performed By: #### P REG, ACETON #### [facility] [address] [place] [address] Dr. Jovanni Maya MCH (RBC) [Entitic mass] 29.3 pg Normal 26.7-34.0 [facility] Comment on above: Performed By: #### P REG, ACETON #### [facility] [address] [address] [address] Jovanni Maya MCHC (RBC) [Mass/Vol] 34.2 g/dL Normal 29.9-35.2 [facility] Comment on above: Performed By: #### P REG, ACETON #### [facility] [address] [address] [address] Jovanni Maya MCV (RBC) [Entitic vol] 85.7 fL Normal 81.0-99.0 [facility] Comment on above: Performed By: #### P REG, ACETON #### [facility] [address] [place] [address] Dr. Jovanni Maya MONO # 0.6 103/ul Normal 0.3-0.8 [facility] Comment on above: Performed By: #### P REG, ACETON #### [facility] [address] [place] [address] Dr. Jovanni Maya Monocytes/100 WBC (Bld) 5.0 % Normal 1.7-12.0 [facility] Comment on above: Performed By: #### P REG, ACETON #### [facility] [address] [place] [address] Dr. Jovanni Maya NEUT # 8.4 103/ul Critically high 1.4-6.5 [facility] Comment on above: Performed By: #### P REG, ACETON #### [facility] [address] [place] [address] Dr. Jovanni Maya Neutrophils/100 WBC (Bld) 76.6 % Critically high 43.0-75.0 [facility] Comment on above: Performed By: #### P REG, ACETON #### [facility] [address] [place] [address] Dr. Jovanni Maya Platelet mean volume (Bld) [Entitic vol] 10.5 fL Normal 9.5-13.5 [facility] Comment on above: Performed By: #### P REG, ACETON #### [facility] [address] [address] [address] Jovanni Maya PLT 279 103/ul Normal 150-450 [facility] Comment on above: Performed By: #### P REG, ACETON #### [facility] [address] [address] [address] Jovanni Maya RBC 4.61 106/ul Normal 4.20-5.40 [facility] Comment on above: Performed By: #### P REG, ACETON #### [facility] [address] [address] [address] Jovanni Maya WBC 11.0 103/ul Normal 4.0-11.0 [facility] Comment on above: Performed By: #### P REG, ACETON #### [facility] [address] [place] [address] Dr. Jovanni Maya ER URINE PROFILEon 2 Bilirubin Ql (U) Negative Normal NEGATIVE [facility] Comment on above: Performed By: #### C MP, HSTROPN #### [facility] [address] [place] [address] Dr. Jovanni Maya Clarity (U) CLEAR Normal CLEAR [facility] Comment on above: Performed By: #### C MP, HSTROPN #### [facility] [address] [place] [address] Dr. Jovanni Maya Color (U) LT. YELLOW Normal YELLOW [facility] Comment on above: Performed By: #### C MP, HSTROPN #### [facility] [address] [place] [address] Dr. Jovanni Maya ERUAHD A micrscopic examina tion will be performed if indicated. Normal [facility] Comment on above: Performed By: #### C MP, HSTROPN #### [facility] [address] [place] [address] Dr. Jovanni Maya Glucose Ql (U) Negative Normal NEGATIVE [facility] Comment on above: Performed By: #### C MP, HSTROPN #### [facility] [address] [place] [address] Dr. Jovanni Maya Hemoglobin Ql (U) Negative Normal NEGATIVE [facility] Comment on above: Performed By: #### C MP, HSTROPN #### [facility] [address] [place] [address] Dr. Jovanni Maya Ketones Ql (U) Negative Normal NEGATIVE [facility] Comment on above: Performed By: #### C MP, HSTROPN #### [facility] [address] [place] [address] Dr. Jovanni Maya LEUKOCYTES Negative Normal NEGATIVE [facility] Comment on above: Performed By: #### C MP, HSTROPN #### [facility] [address] [address] [address] Jovanni Maya Nitrite Ql (U) Negative Normal NEGATIVE [facility] Comment on above: Performed By: #### C DANIEL, HSTROPN #### [facility] [address] [place] [address] Dr. Jovanni Maya pH (U) 7.0 [pH] Normal 5-9 [facility] Comment on above: Performed By: #### C DANIEL, HSTROPN #### [facility] [address] [place] [address] Dr. Jovanni Maya SPEC GRAVITY 1.010 Normal 1.005-<=1. 025 [facility] Comment on above: Performed By: #### C DANIEL, HSTROPN #### [facility] [address] [place] [address] Dr. Jovanni Maya UA PROTEIN Negative Normal NEGATIVE/ TRACE [facility] Comment on above: Performed By: #### C DANIEL, HSTROPN #### [facility] [address] [place] [address] Dr. Jovanni Maya UR MICRO IND NOT INDICATED Normal [facility] Comment on above: Performed By: #### C DANIEL, HSTROPN #### [facility] [address] [place] [address] Dr. Jovanni Maya Urobilinogen Qn (U) 0.2 {Carlos A'U}/dL Normal 0.2 - 1. 0 [facility] Comment on above: Performed By: #### C DANIEL, HSTROPN #### [facility] [address] [place] [address] Dr. Jovanni Maya PROF 14(COMP METB)on 022 Albumin [Mass/Vol] 3.6 g/dL Normal 3.4-5.0 [facility] Comment on above: Performed By: #### P REG, ACETON #### [facility] [address] [address] [address] Jovanni Maya Albumin/Globulin [Mass ratio] 1.2 {ratio} Normal [facility] Comment on above: Performed By: #### P REG, ACETON #### [facility] [address] [address] [address] Jovanni Maya ALP [Catalytic activity/Vol] 49 U/L Normal 46-116 [facility] Comment on above: Performed By: #### P REG, ACETON #### [facility] [address] [address] [address] Jovanni Maya ALT [Catalytic activity/Vol] 4 U/L Critically low 14-59 [facility] Comment on above: Performed By: #### P REG, ACETON #### [facility] [address] [address] [address] Jovanni Maya Anion gap [Moles/Vol] 9.0 mmol/L Normal [facility] Comment on above: Performed By: #### P REG, ACETON #### [facility] [address] [address] [address] Jovanni Maya AST [Catalytic activity/Vol] 10 U/L Critically low 15-37 [facility] Comment on above: Performed By: #### P REG, ACETON #### [facility] [address] [address] [address] Jovanni Maya Bilirubin [Mass/Vol] 0.4 mg/dL Normal 0.2-1.0 [facility] Comment on above: Performed By: #### P REG, ACETON #### [facility] [address] [address] [address] Jovanni Maya Calcium [Mass/Vol] 8.2 mg/dL Critically low 8.5-10.1 [facility] Comment on above: Performed By: #### P REG, ACETON #### [facility] [address] [address] [address] Jovanni Maya Chloride [Moles/Vol] 107 mmol/L Normal 98-107 [facility] Comment on above: Performed By: #### P REG, ACETON #### [facility] [address] [address] [address] Jovanni Maya CO2 [Moles/Vol] 25.8 mmol/L Normal 21.0-32.0 [facility] Comment on above: Performed By: #### P REG, ACETON #### [facility] [address] [address] [address] Jovanni Maya Creatinine [Mass/Vol] 0.73 mg/dL Normal 0.55-1.02 [facility] Comment on above: Performed By: #### P REG, ACETON #### [facility] [address] [place] [address] Dr. Jovanni Maya EGFR-AF SCOTTISH >60 Normal >=60 [facility] Comment on above: Performed By: #### P REG, ACETON #### [facility] [address] [place] [address] Dr. Jovanni Maya EGFR-NON AF SCOTTISH >60 Normal >=60 [facility] Comment on above: Performed By: #### P REG, ACETON #### [facility] [address] [place] [address] Dr. Jovanni Maya Globulin (S) [Mass/Vol] 3.0 g/dL Normal [facility] Comment on above: Performed By: #### P REG, ACETON #### [facility] [address] [address] [address] Jovanni Maya Glucose [Mass/Vol] 121 mg/dL Critically high 74-106 [facility] Comment on above: Performed By: #### P REG, ACETON #### [facility] [address] [address] [address] Jovanni Maya Potassium [Moles/Vol] 3.8 mmol/L Normal 3.5-5.1 [facility] Comment on above: Performed By: #### P REG, ACETON #### [facility] [address] [address] [address] Jovanni Maya Protein [Mass/Vol] 6.6 g/dL Normal 6.4-8.2 [facility] Comment on above: Performed By: #### P REG, ACETON #### [facility] [address] [address] [address] Jovanni Maya Sodium [Moles/Vol] 138 mmol/L Normal 136-145 [facility] Comment on above: Performed By: #### P REG, ACETON #### [facility] [address] [address] [address] Jovanni Maya Urea nitrogen [Mass/Vol] 9.0 mg/dL Normal 7.0-18.0 [facility] Comment on above: Performed By: #### P REG, ACETON #### [facility] [address] [address] [address] Jovanni Maya Urea nitrogen/Creatinine [Mass ratio] 12.3 mg/mg Normal [facility] Comment on above: Performed By: #### P REG, ACETON #### [facility] [address] [address] [address] Jovanni Maya Albumin [Mass/volume] in Ser um or PlasmaOrdered By: Som Fiore on 04-22-2022 Albumin [Mass/Vol] 4.1 g/dL 3.2-5.5 [facility] Amphetamine Screen Ql (U)Ord ered By: Som Fiore on 04-22-2022 Amphetamines Ql (U) Negative Negative [facility] Automated erythrocytes count in urine sediment (number/area)Ordered By: Som Fiore on 04-22-2022 RBC Auto (Urine sed) [#/Area] 5-9 [HPF] 0-4 [facility] Automated leukocytes count i n urine sediment (number/area)Ordered By: Som Fiore on 04-22-2022 WBC Auto (Urine sed) [#/Area] 1-2 [HPF] 0-4 [facility] Barbiturates [Presence] in U rineOrdered By: Som Fiore on 04-22-2022 Barbiturates Ql (U) Negative Negative [facility] Basophils Auto (Bld) [#/Vol] Ordered By: Som Fiore on 04-22-2022 Basophils (Bld) [#/Vol] 0.0 10*3/uL 0.0-0.2 [facility] Basophils/100 WBC Auto (Bld) Ordered By: oSm Fiore on 04-22-2022 Basophils/100 WBC (Bld) 0.4 % . [facility] Benzodiazepines [Presence] i n UrineOrdered By: Som Fiore on 04-22-2022 Benzodiazepines Ql (U) Negative Negative Fi [facility] Bilirubin Test strip Ql (U)O rdered By: Som Fiore on 04-22-2022 Bilirubin Ql (U) Negative Negative [facility] Cannabinoids [Presence] in U rine by Screen methodOrdered By: Som Fiore on 04-22-2022 Cannabinoids Screen Ql (U) Positive Negative [facility] Comment on above: These are unconfirme d results and should not be used for legal purposes. Drug Cut-Off Concentration: AMPH 1000 ng/mL DOMINIQUE 200 ng/mL BRICE 200 ng/mL COCM 300 ng/mL OP 300 ng/mL PCP 25 ng/mL THC 20 ng/mL Color Auto (U)Ordered By: Giovanni Fiore on 04-22-2022 Color (U) Yellow Yellow [facility] Creatinine and Glomerular fi ltration rate.predicted panel (S/P/Bld)Ordered By: Som Fiore on 04-22-2022 Creatinine [Mass/Vol] 0.72 mg/dL 0.44-1.03 [facility] Eosinophils Auto (Bld) [#/Vo l]Ordered By: Som Fiore on 04-22-2022 Eosinophils (Bld) [#/Vol] 0.0 10*3/uL 0.0-0.45 [facility] Eosinophils/100 WBC Auto (Bl d)Ordered By: Som Fiore on 04-22-2022 Eosinophils/100 WBC (Bld) 0.6 % . [facility] Erythrocyte distribution wid th Auto (RBC) [Ratio]Ordered By: Som Fiore on 04-22-2022 Erythrocyte distribution width (RBC) [Ratio] 14.6 % 11.9-15.3 [facility] Estimated glomerular filtrat ion rate (GFR) non- AmericanOrdered By: Som Fiore on 04-22-2022 GFR/1.73 sq M.predicted among non-blacks MDRD (S/P/Bld) [Vol rate/Area] > 60 mL/Min [facility] Globulin Calc (S) [Mass/Vol] Ordered By: Som Fiore on 04-22-2022 Globulin (S) [Mass/Vol] 3.2 g/dL [facility] Hematocrit Auto (Bld) [Volum e fraction]Ordered By: Som Fiore on 04-22-2022 Hematocrit (Bld) [Volume fraction] 40.7 % 34.0-46.4 [facility] Hemoglobin [Mass/volume] in BloodOrdered By: Som Fiore on 04-22-2022 Hemoglobin (Bld) [Mass/Vol] 13.4 g/dL 11.8-15.4 [facility] Ketones Auto test strip (U) [Mass/Vol]Ordered By: Som Fiore on 04-22-2022 Ketones (U) [Mass/Vol] Negative Negative [facility] - Drug toxicology Ordered By: Som Fiore on 04-22-2022 Opiates Ql (U) Negative Negative [facility] - Hematology and Cell countsOrdered By: Som Fiore on 04-22-2022 Nucleated RBC/100 WBC (Bld) [Ratio] 0.1 % 0-0.5 [facility] - UrinalysisOrder ed By: Som Firoe on 04-22-2022 Hyaline casts LM Ql (Urine sed) 0-8 [LPF] 0-8 [facility] Leukocytes [#/volume] in Blo od by Automated countOrdered By: Som Fiore on 04-22-2022 WBC (Bld) [#/Vol] 7.2 10*3/uL 4.5-11.0 [facility] Lymphocytes Auto (Bld) [#/Vo l]Ordered By: Som Fiore on 04-22-2022 Lymphocytes (Bld) [#/Vol] 2.2 10*3/uL 1.00-4.8 [facility] Lymphocytes/100 WBC Auto (Bl d)Ordered By: Som Fiore on 04-22-2022 Lymphocytes/100 WBC (Bld) 30.1 % . [facility] MCH Auto (RBC) [Entitic mass ]Ordered By: Som Fiore on 04-22-2022 MCH (RBC) [Entitic mass] 28.8 pg 24.7-34.3 [facility] MCHC Auto (RBC) [Mass/Vol]Or dered By: Som Fiore on 04-22-2022 MCHC (RBC) [Mass/Vol] 32.9 g/dL 32.0-35.0 [facility] MCV Auto (RBC) [Entitic vol] Ordered By: Som Fiore on 04-22-2022 MCV (RBC) [Entitic vol] 87.4 fL 80-100 [facility] Monocytes Auto (Bld) [#/Vol] Ordered By: Som Fiore on 04-22-2022 Monocytes (Bld) [#/Vol] 0.5 10*3/uL 0.0-0.8 [facility] Monocytes/100 WBC Auto (Bld) Ordered By: Som Fiore on 04-22-2022 Monocytes/100 WBC (Bld) 7.1 % . [facility] Neutrophils Auto (Bld) [#/Vo l]Ordered By: Som Fiore on 04-22-2022 Neutrophils (Bld) [#/Vol] 4.4 10*3/uL 1.8-7.7 [facility] Neutrophils/100 WBC Auto (Bl d)Ordered By: Som Fiore on 04-22-2022 Neutrophils/100 WBC (Bld) 61.8 % . [facility] Nitrite Test strip Ql (U)Ord ered By: Som Fiore on 04-22-2022 Nitrite Ql (U) Negative Negative [facility] No Panel InformationOrdered By: Som Fiore on 04-22-2022 Estimated GFR () > 60 mL/Min [facility] Comment on above: GFR estimated refere nce range: According to KDOQI guidelines, <60 ml/min/1.73m2 is sufficient to diagnose a patient with chronic kidney disease. Pharmacy Creatinine Clearance (Chem 94.05 [facility] Phencyclidine Screen Ql (U)O rdered By: Som Fiore on 04-22-2022 Phencyclidine Ql (U) Negative Negative [facility] Platelet mean volume Auto (B ld) [Entitic vol]Ordered By: Som Fiore on 04-22-2022 Platelet mean volume (Bld) [Entitic vol] 8.2 fL 6.3-10.7 [facility] Platelets Auto (Bld) [#/Vol] Ordered By: Som Fiore on 04-22-2022 Platelets (Bld) [#/Vol] 268 10*3/uL 150-450 [facility] Protein Auto test strip (U) [Mass/Vol]Ordered By: Som Fiore on 04-22-2022 Protein (U) [Mass/Vol] Negative Negative Fi [facility] Protein [Mass/volume] in Ser um or PlasmaOrdered By: Som Fiore on 04-22-2022 Protein [Mass/Vol] 7.3 g/dL 6.1-7.9 [facility] RBC Auto (Bld) [#/Vol]Ordere d By: Som Fiore on 04-22-2022 RBC (Bld) [#/Vol] 4.66 10*6/uL 3.60-5.00 [facility] Serum or plasma alanine white otransferase measurement without P-5'-P (enzymatic activiOrdered By: Som Fiore on 04-22-2022 ALT No additional P-5'-P [Catalytic activity/Vol] 10 U/L 10-60 [facility] Serum or plasma albumin/glob ulin mass ratioOrdered By: Som Fiore on 04-22-2022 Albumin/Globulin [Mass ratio] 1.3 {ratio} [facility] Serum or plasma alkaline ignacio sphatase measurement (enzymatic activity/volume)Ordered By: Som Fiore on 04-22-2022 ALP [Catalytic activity/Vol] 49 U/L 32-92 [facility] Serum or plasma anion gap de terminationOrdered By: Som Fiore on 04-22-2022 Anion gap [Moles/Vol] 11.7 mmol/L 6.0-15.0 [facility] Serum or plasma aspartate am inotransferase measurement (enzymatic activity/volume)Ordered By: Som Fiore on 04-22-2022 AST [Catalytic activity/Vol] 17 U/L [facility] Serum or plasma calcium randi urement (mass/volume)Ordered By: Som Fiore on 04-22-2022 Calcium [Mass/Vol] 9.4 mg/dL 8.2-10.2 [facility] Serum or plasma chloride melonie surement (moles/volume)Ordered By: Som Fiore on 04-22-2022 Chloride [Moles/Vol] 102 mmol/L 95-114 [facility] Serum or plasma glucose randi urement (mass/volume)Ordered By: Som Fiore on 04-22-2022 Glucose [Mass/Vol] 101 mg/dL 70-100 [facility] Comment on above: ADA recommended refe rence rangeRandom Glucose Reference Range is dependent on time and content of last meal. Glucose of more than 200 mg/dL in a nonstressed, ambulatory subject supports the diagnosis of Diabetes Mellitus. Serum or plasma potassium me asurement (moles/volume)Ordered By: Som Fiore on 04-22-2022 Potassium [Moles/Vol] 3.9 mmol/L 3.5-5.1 [facility] Serum or plasma sodium measu rement (moles/volume)Ordered By: Som Fiore on 04-22-2022 Sodium [Moles/Vol] 139 mmol/L 136-146 [facility] Serum or plasma total biliru bin measurement (mass/volume)Ordered By: Som Fiore on 04-22-2022 Bilirubin [Mass/Vol] 0.7 mg/dL 0.3-1.2 [facility] Serum or plasma total carbon dioxide measurement (moles/volume)Ordered By: Som Fiore on 04-22-2022 CO2 [Moles/Vol] 29.2 mmol/L 22.0-30.0 [facility] Serum or plasma urea nitroge n measurement (mass/volume)Ordered By: Som Fiore on 04-22-2022 Urea nitrogen [Mass/Vol] 6 mg/dL 03-19 [facility] Specific gravity Auto test s trip (U) [Rel density]Ordered By: Som Fiore on 04-22-2022 Specific gravity (U) [Rel density] 1.017 1.001-1.03 0 [facility] Squamous epithelial cells de tection in urine sediment by light microscopyOrdered By: Som Fiore on 04-22-2022 Epithelial cells.squamous LM Ql (Urine sed) 0-1 [HPF] 0-2 [facility] Urine bacteria detection by automated methodOrdered By: Som Fiore on 04-22-2022 Bacteria Auto Ql (U) None seen None Seen [facility] Urine clarity by refractomet ry automatedOrdered By: Som Fiore on 04-22-2022 Clarity Refractometry automated (U) Turbid Clear [facility] Urine cocaine detectionOrder ed By: Som Fiore on 04-22-2022 Cocaine Ql (U) Negative Negative [facility] Urine glucose measurement by automated test strip (mass/volume)Ordered By: Som Fiore on 04-22-2022 Glucose Auto test strip (U) [Mass/Vol] Normal mg/dL Normal [facility] Urine hemoglobin detection b y automated test stripOrdered By: Som Fiore on 04-22-2022 Hemoglobin Auto test strip Ql (U) 2+ Negative [facility] Urine leukocyte esterase det ection by automated test stripOrdered By: Som Fiore on 04-22-2022 Leukocyte esterase Auto test strip Ql (U) Negative Negative [facility] Urobilinogen Auto test strip (U) [Mass/Vol]Ordered By: Som Fiore on 04-22-2022 Urobilinogen (U) [Mass/Vol] Normal mg/dL Normal [facility] Yeast detection in urine sed iment by light microscopyOrdered By: Som Fiore on 04-22-2022 Yeast LM Ql (Urine sed) None seen [HPF] None Seen [facility] pH Auto test strip (U)Ordere d By: Som Fiore on 04-22-2022 pH (U) 7.0 [pH] 5.0-9.0 [facility] Urine culture routineOrdered By: Som Fiore on 04-07-2022 Bacteria identified Cx Nom (U) No Growth 2 Days [facility] Amphetamine Screen Ql (U)Ord ered By: Som Fiore on 04-05-2022 Amphetamines Ql (U) Negative Negative [facility] Automated erythrocytes count in urine sediment (number/area)Ordered By: Som Fiore on 04-05-2022 RBC Auto (Urine sed) [#/Area] 5-9 [HPF] 0-4 [facility] Automated leukocytes count i n urine sediment (number/area)Ordered By: Som Fiore on 04-05-2022 WBC Auto (Urine sed) [#/Area] 5-9 [HPF] 0-4 [facility] Barbiturates [Presence] in U rineOrdered By: Som Fiore on 04-05-2022 Barbiturates Ql (U) Negative Negative [facility] Basophils Auto (Bld) [#/Vol] Ordered By: Som Fiore on 04-05-2022 Basophils (Bld) [#/Vol] 0.0 10*3/uL 0.0-0.2 [facility] Basophils/100 WBC Auto (Bld) Ordered By: Som Fiore on 04-05-2022 Basophils/100 WBC (Bld) 0.5 % . [facility] Benzodiazepines [Presence] i n UrineOrdered By: Som Fiore on 04-05-2022 Benzodiazepines Ql (U) Negative Negative [facility] Bilirubin Test strip Ql (U)O rdered By: Som Fiore on 04-05-2022 Bilirubin Ql (U) Negative Negative [facility] Blood hemoglobin measurement (mass/volume)Ordered By: Som Fiore on 04-05-2022 Hemoglobin (Bld) [Mass/Vol] 13.4 g/dL 11.8-15.4 [facility] Blood leukocytes automated c ount (number/volume)Ordered By: Som Fiore on 04-05-2022 WBC (Bld) [#/Vol] 6.5 10*3/uL 4.5-11.0 [facility] Cannabinoids [Presence] in U rine by Screen methodOrdered By: Som Fiore on 04-05-2022 Cannabinoids Screen Ql (U) Positive Negative [facility] Comment on above: These are unconfirme d results and should not be used for legal purposes. Drug Cut-Off Concentration: AMPH 1000 ng/mL DOMINIQUE 200 ng/mL BRICE 200 ng/mL COCM 300 ng/mL OP 300 ng/mL PCP 25 ng/mL THC 20 ng/mL Color Auto (U)Ordered By: Giovanni Fiore on 04-05-2022 Color (U) Yellow Yellow [facility] Creatinine and Glomerular fi ltration rate.predicted panel (S/P/Bld)Ordered By: Som Fiore on 04-05-2022 Creatinine [Mass/Vol] 0.73 mg/dL 0.44-1.03 [facility] Eosinophils Auto (Bld) [#/Vo l]Ordered By: Som Fiore on 04-05-2022 Eosinophils (Bld) [#/Vol] 0.0 10*3/uL 0.0-0.45 [facility] Eosinophils/100 WBC Auto (Bl d)Ordered By: Som Fiore on 04-05-2022 Eosinophils/100 WBC (Bld) 0.5 % . [facility] Erythrocyte distribution wid th Auto (RBC) [Ratio]Ordered By: Som Fiore on 04-05-2022 Erythrocyte distribution width (RBC) [Ratio] 14.2 % 11.9-15.3 [facility] Estimated glomerular filtrat ion rate (GFR) non- AmericanOrdered By: Som Fiore on 04-05-2022 GFR/1.73 sq M.predicted among non-blacks MDRD (S/P/Bld) [Vol rate/Area] > 60 mL/Min [facility] HCG ( test) IA.rapi d Ql (U)Ordered By: Som Fiore on 04-05-2022 HCG ( test) Ql (U) Negative [facility] Hematocrit Auto (Bld) [Volum e fraction]Ordered By: Som Fiore on 04-05-2022 Hematocrit (Bld) [Volume fraction] 40.4 % 34.0-46.4 [facility] Ketones Auto test strip (U) [Mass/Vol]Ordered By: Som Fiore on 04-05-2022 Ketones (U) [Mass/Vol] Negative Negative [facility] Laboratory - Drug toxicology Ordered By: Som Fiore on 04-05-2022 Opiates Ql (U) Negative Negative [facility] Laboratory - Hematology and Cell countsOrdered By: Som Fiore on 04-05-2022 Nucleated RBC/100 WBC (Bld) [Ratio] 0.1 % 0-0.5 [facility] Laboratory - UrinalysisOrder ed By: Som Fiore on 04-05-2022 Hyaline casts LM Ql (Urine sed) 0-8 [LPF] 0-8 [facility] Lymphocytes Auto (Bld) [#/Vo l]Ordered By: Som Fiore on 04-05-2022 Lymphocytes (Bld) [#/Vol] 2.0 10*3/uL 1.00-4.8 [facility] Lymphocytes/100 WBC Auto (Bl d)Ordered By: Som Fiore on 04-05-2022 Lymphocytes/100 WBC (Bld) 30.0 % . [facility] MCH Auto (RBC) [Entitic mass ]Ordered By: Som Fiore on 04-05-2022 MCH (RBC) [Entitic mass] 28.8 pg 24.7-34.3 [facility] MCHC Auto (RBC) [Mass/Vol]Or dered By: Som Fiore on 04-05-2022 MCHC (RBC) [Mass/Vol] 33.2 g/dL 32.0-35.0 [facility] MCV Auto (RBC) [Entitic vol] Ordered By: Som Fiore on 04-05-2022 MCV (RBC) [Entitic vol] 86.6 fL 80-100 [facility] Monocytes Auto (Bld) [#/Vol] Ordered By: Som Fiore on 04-05-2022 Monocytes (Bld) [#/Vol] 0.5 10*3/uL 0.0-0.8 [facility] Monocytes/100 WBC Auto (Bld) Ordered By: Som Fiore on 04-05-2022 Monocytes/100 WBC (Bld) 7.0 % . [facility] Neutrophils Auto (Bld) [#/Vo l]Ordered By: Som Fiore on 04-05-2022 Neutrophils (Bld) [#/Vol] 4.0 10*3/uL 1.8-7.7 [facility] Neutrophils/100 WBC Auto (Bl d)Ordered By: Som Fiore on 04-05-2022 Neutrophils/100 WBC (Bld) 62.0 % . [facility] Nitrite Test strip Ql (U)Ord ered By: Som Fiore on 04-05-2022 Nitrite Ql (U) Negative Negative [facility] No Panel InformationOrdered By: Som Fiore on 04-05-2022 Estimated GFR () > 60 mL/Min [facility] Comment on above: GFR estimated refere nce range: According to KDOQI guidelines, <60 ml/min/1.73m2 is sufficient to diagnose a patient with chronic kidney disease. Pharmacy Creatinine Clearance (Chem 92.76 [facility] Phencyclidine Screen Ql (U)O rdered By: Som Fiore on 04-05-2022 Phencyclidine Ql (U) Negative Negative [facility] Platelet mean volume Auto (B ld) [Entitic vol]Ordered By: Som Fiore on 04-05-2022 Platelet mean volume (Bld) [Entitic vol] 7.8 fL 6.3-10.7 [facility] Platelets Auto (Bld) [#/Vol] Ordered By: Som Fiore on 04-05-2022 Platelets (Bld) [#/Vol] 278 10*3/uL 150-450 [facility] Protein Auto test strip (U) [Mass/Vol]Ordered By: Som Fiore on 04-05-2022 Protein (U) [Mass/Vol] Negative Negative [facility] RBC Auto (Bld) [#/Vol]Ordere d By: Som Fiore on 04-05-2022 RBC (Bld) [#/Vol] 4.66 10*6/uL 3.60-5.00 [facility] Serum or plasma anion gap de terminationOrdered By: Som Fiore on 04-05-2022 Anion gap [Moles/Vol] 14.4 mmol/L 6.0-15.0 [facility] Serum or plasma calcium randi urement (mass/volume)Ordered By: Som Fiore on 04-05-2022 Calcium [Mass/Vol] 9.5 mg/dL 8.2-10.2 [facility] Serum or plasma chloride melonie surement (moles/volume)Ordered By: Som Fiore on 04-05-2022 Chloride [Moles/Vol] 100 mmol/L 95-114 [facility] Serum or plasma glucose randi urement (mass/volume)Ordered By: Som Fiore on 04-05-2022 Glucose [Mass/Vol] 97 mg/dL 70-100 [facility] Comment on above: ADA recommended refe rence rangeRandom Glucose Reference Range is dependent on time and content of last meal. Glucose of more than 200 mg/dL in a nonstressed, ambulatory subject supports the diagnosis of Diabetes Mellitus. Serum or plasma potassium me asurement (moles/volume)Ordered By: Som Fiore on 04-05-2022 Potassium [Moles/Vol] 4.1 mmol/L 3.5-5.1 [facility] Serum or plasma sodium measu rement (moles/volume)Ordered By: Som Fiore on 04-05-2022 Sodium [Moles/Vol] 139 mmol/L 136-146 [facility] Serum or plasma total carbon dioxide measurement (moles/volume)Ordered By: Som Fiore on 04-05-2022 CO2 [Moles/Vol] 28.7 mmol/L 22.0-30.0 [facility] Serum or plasma urea nitroge n measurement (mass/volume)Ordered By: Som Fiore on 04-05-2022 Urea nitrogen [Mass/Vol] 7 mg/dL 9-23 [facility] Specific gravity Auto test s trip (U) [Rel density]Ordered By: Som Fiore on 04-05-2022 Specific gravity (U) [Rel density] 1.011 1.001-1.03 0 [facility] Squamous epithelial cells de tection in urine sediment by light microscopyOrdered By: Som Fiore 04-05-2022 Epithelial cells.squamous LM Ql (Urine sed) 1-2 [HPF] 0-2 [facility] Urine bacteria detection by automated methodOrdered By: Som Fiore on 04-05-2022 Bacteria Auto Ql (U) None seen None Seen [facility] Urine clarity by refractomet ry automatedOrdered By: Som Fiore on 04-05-2022 Clarity Refractometry automated (U) Cloudy Clear [facility] Urine cocaine detectionOrder ed By: Som Fiore on 04-05-2022 Cocaine Ql (U) Negative Negative [facility] Urine glucose measurement by automated test strip (mass/volume)Ordered By: Som Fiore on 04-05-2022 Glucose Auto test strip (U) [Mass/Vol] Normal mg/dL Normal [facility] Urine hemoglobin detection b y automated test stripOrdered By: Som Fiore on 04-05-2022 Hemoglobin Auto test strip Ql (U) Trace Negative [facility] Urine leukocyte esterase det ection by automated test stripOrdered By: Som Fiore on 04-05-2022 Leukocyte esterase Auto test strip Ql (U) 1+ Negative [facility] Urobilinogen Auto test strip (U) [Mass/Vol]Ordered By: Som Fiore on 04-05-2022 Urobilinogen (U) [Mass/Vol] Normal mg/dL Normal [facility] pH Auto test strip (U)Ordere d By: Som Fiore on 04-05-2022 pH (U) 7.0 [pH] 5.0-9.0 [facility] Urine culture routineOrdered By: Pipe Jose on 04-01-2022 Bacteria identified Cx Nom (U) 2 Days [facility] Automated erythrocytes count in urine sediment (number/area)Ordered By: Pipe Jose on 03-30-2022 RBC Auto (Urine sed) [#/Area] 5-9 [HPF] 0-4 [facility] Automated leukocytes count i n urine sediment (number/area)Ordered By: Pipe Jose on 03-30-2022 WBC Auto (Urine sed) [#/Area] 5-9 [HPF] 0-4 [facility] Basophils Auto (Bld) [#/Vol] Ordered By: Pipe Jose on 03-30-2022 Basophils (Bld) [#/Vol] 0.0 10*3/uL 0.0-0.2 [facility] Basophils/100 WBC Auto (Bld) Ordered By: Pipe Jose on 03-30-2022 Basophils/100 WBC (Bld) 0.4 % . [facility] Bilirubin Test strip Ql (U)O rdered By: Pipe Jose on 03-30-2022 Bilirubin Ql (U) Negative Negative [facility] Blood hemoglobin measurement (mass/volume)Ordered By: Pipe Jose on 03-30-2022 Hemoglobin (Bld) [Mass/Vol] 14.6 g/dL 11.8-15.4 [facility] Blood leukocytes automated c ount (number/volume)Ordered By: Pipe Jose on 03-30-2022 WBC (Bld) [#/Vol] 7.6 10*3/uL 4.5-11.0 [facility] Color Auto (U)Ordered By: Sushma Jose on 03-30-2022 Color (U) Yellow Yellow [facility] Creatinine and Glomerular fi ltration rate.predicted panel (S/P/Bld)Ordered By: Pipe Jose on 03-30-2022 Creatinine [Mass/Vol] 0.80 mg/dL 0.44-1.03 [facility] Eosinophils Auto (Bld) [#/Vo l]Ordered By: Pipe Jose on 03-30-2022 Eosinophils (Bld) [#/Vol] 0.1 10*3/uL 0.0-0.45 [facility] Eosinophils/100 WBC Auto (Bl d)Ordered By: Pipe Jose on 03-30-2022 Eosinophils/100 WBC (Bld) 0.8 % . [facility] Erythrocyte distribution wid th Auto (RBC) [Ratio]Ordered By: Pipe Jose on 03-30-2022 Erythrocyte distribution width (RBC) [Ratio] 14.4 % 11.9-15.3 [facility] Estimated glomerular filtrat ion rate (GFR) non- AmericanOrdered By: Pipe Jose on 03-30-2022 GFR/1.73 sq M.predicted among non-blacks MDRD (S/P/Bld) [Vol rate/Area] > 60 mL/Min [facility] Hematocrit Auto (Bld) [Volum e fraction]Ordered By: Pipe Jose on 03-30-2022 Hematocrit (Bld) [Volume fraction] 43.8 % 34.0-46.4 [facility] Ketones Auto test strip (U) [Mass/Vol]Ordered By: Pipe Jose on 03-30-2022 Ketones (U) [Mass/Vol] Negative Negative [facility] Laboratory - Hematology and Cell countsOrdered By: Pipe Jose on 03-30-2022 Nucleated RBC/100 WBC (Bld) [Ratio] 0.1 % 0-0.5 [facility] - UrinalysisOrder ed By: Pipe Jose on 03-30-2022 Hyaline casts LM Ql (Urine sed) 0-8 [LPF] 0-8 [facility] Lymphocytes Auto (Bld) [#/Vo l]Ordered By: Pipe Jose on 03-30-2022 Lymphocytes (Bld) [#/Vol] 2.4 10*3/uL 1.00-4.8 [facility] Lymphocytes/100 WBC Auto (Bl d)Ordered By: Pipe Jose on 03-30-2022 Lymphocytes/100 WBC (Bld) 31.6 % . [facility] MCH Auto (RBC) [Entitic mass ]Ordered By: Pipe Jose on 03-30-2022 MCH (RBC) [Entitic mass] 28.9 pg 24.7-34.3 [facility] MCHC Auto (RBC) [Mass/Vol]Or dered By: Pipe Jose on 03-30-2022 MCHC (RBC) [Mass/Vol] 33.4 g/dL 32.0-35.0 [facility] MCV Auto (RBC) [Entitic vol] Ordered By: Pipe Jose on 03-30-2022 MCV (RBC) [Entitic vol] 86.6 fL 80-100 [facility] Monocytes Auto (Bld) [#/Vol] Ordered By: Pipe Jose on 03-30-2022 Monocytes (Bld) [#/Vol] 0.5 10*3/uL 0.0-0.8 [facility] Monocytes/100 WBC Auto (Bld) Ordered By: Pipe Jose on 03-30-2022 Monocytes/100 WBC (Bld) 7.0 % . [facility] Neutrophils Auto (Bld) [#/Vo l]Ordered By: Pipe Jose on 03-30-2022 Neutrophils (Bld) [#/Vol] 4.6 10*3/uL 1.8-7.7 [facility] Neutrophils/100 WBC Auto (Bl d)Ordered By: Pipe Jose on 03-30-2022 Neutrophils/100 WBC (Bld) 60.2 % . [facility] Nitrite Test strip Ql (U)Ord ered By: Pipe Jose on 03-30-2022 Nitrite Ql (U) Negative Negative [facility] No Panel InformationOrdered By: Pipe Jose on 03-30-2022 Estimated GFR () > 60 mL/Min [facility] Comment on above: GFR estimated refere nce range: According to KDOQI guidelines, <60 ml/min/1.73m2 is sufficient to diagnose a patient with chronic kidney disease. Pharmacy Creatinine Clearance (Chem 84.65 [facility] Platelet mean volume Auto (B ld) [Entitic vol]Ordered By: Pipe Jose on 03-30-2022 Platelet mean volume (Bld) [Entitic vol] 8.4 fL 6.3-10.7 [facility] Platelets Auto (Bld) [#/Vol] Ordered By: Pipe Jose on 03-30-2022 Platelets (Bld) [#/Vol] 286 10*3/uL 150-450 [facility] Protein Auto test strip (U) [Mass/Vol]Ordered By: Pipe Jose on 03-30-2022 Protein (U) [Mass/Vol] Negative Negative [facility] RBC Auto (Bld) [#/Vol]Ordere d By: Pipe Jose on 03-30-2022 RBC (Bld) [#/Vol] 5.05 10*6/uL 3.60-5.00 [facility] Serum or plasma anion gap de terminationOrdered By: Pipe Jose on 03-30-2022 Anion gap [Moles/Vol] 15.0 mmol/L 6.0-15.0 [facility] Serum or plasma calcium randi urement (mass/volume)Ordered By: Pipe Jose on 03-30-2022 Calcium [Mass/Vol] 9.9 mg/dL 8.2-10.2 [facility] Serum or plasma chloride melonie surement (moles/volume)Ordered By: Pipe Jose on 03-30-2022 Chloride [Moles/Vol] 100 mmol/L 95-114 [facility] Serum or plasma glucose randi urement (mass/volume)Ordered By: Pipe Jose on 03-30-2022 Glucose [Mass/Vol] 104 mg/dL 70-100 [facility] Comment on above: ADA recommended refe rence rangeRandom Glucose Reference Range is dependent on time and content of last meal. Glucose of more than 200 mg/dL in a nonstressed, ambulatory subject supports the diagnosis of Diabetes Mellitus. Serum or plasma potassium me asurement (moles/volume)Ordered By: Pipe Jose on 03-30-2022 Potassium [Moles/Vol] 4.1 mmol/L 3.5-5.1 [facility] Serum or plasma sodium measu rement (moles/volume)Ordered By: Pipe Jose on 03-30-2022 Sodium [Moles/Vol] 138 mmol/L 136-146 [facility] Serum or plasma total carbon dioxide measurement (moles/volume)Ordered By: Pipe Jose on 03-30-2022 CO2 [Moles/Vol] 27.1 mmol/L 22.0-30.0 [facility] Serum or plasma urea nitroge n measurement (mass/volume)Ordered By: Pipe Jose on 03-30-2022 Urea nitrogen [Mass/Vol] 10 mg/dL 9-23 [facility] Specific gravity Auto test s trip (U) [Rel density]Ordered By: Pipe Jose on 03-30-2022 Specific gravity (U) [Rel density] 1.007 1.001-1.03 0 [facility] Squamous epithelial cells de tection in urine sediment by light microscopyOrdered By: Pipe Jose on 03-30-2022 Epithelial cells.squamous LM Ql (Urine sed) 3-4 [HPF] 0-2 [facility] Urine bacteria detection by automated methodOrdered By: Pipe Jose on 03-30-2022 Bacteria Auto Ql (U) 1+ None Seen [facility] Urine clarity by refractomet ry automatedOrdered By: Pipe Jose on 03-30-2022 Clarity Refractometry automated (U) Clear Clear [facility] Urine glucose measurement by automated test strip (mass/volume)Ordered By: Pipe Jose on 03-30-2022 Glucose Auto test strip (U) [Mass/Vol] Normal mg/dL Normal [facility] Urine hemoglobin detection b y automated test stripOrdered By: Pipe Jose on 03-30-2022 Hemoglobin Auto test strip Ql (U) Negative Negative [facility] Urine leukocyte esterase det ection by automated test stripOrdered By: Pipe Jose on 03-30-2022 Leukocyte esterase Auto test strip Ql (U) 1+ Negative [facility] Urobilinogen Auto test strip (U) [Mass/Vol]Ordered By: Pipe Jose on 03-30-2022 Urobilinogen (U) [Mass/Vol] Normal mg/dL Normal [facility] pH Auto test strip (U)Ordere d By: Pipe Jose on 03-30-2022 pH (U) 7.5 [pH] 5.0-9.0 [facility] Albumin [Mass/volume] in Ser um or PlasmaOrdered By: Los Mcnally on 03-19-2022 Albumin [Mass/Vol] 4.8 g/dL 3.2-5.5 [facility] Basophils Auto (Bld) [#/Vol] Ordered By: Los Mcnally on 03-19-2022 Basophils (Bld) [#/Vol] 0.0 10*3/uL 0.0-0.2 [facility] Basophils/100 WBC Auto (Bld) Ordered By: Los Mcnally on 03-19-2022 Basophils/100 WBC (Bld) 0.6 % . [facility] Blood hemoglobin measurement (mass/volume)Ordered By: Los Mcnally on 03-19-2022 Hemoglobin (Bld) [Mass/Vol] 14.3 g/dL 11.8-15.4 [facility] Blood leukocytes automated c ount (number/volume)Ordered By: Los Mcnally on 03-19-2022 WBC (Bld) [#/Vol] 7.5 10*3/uL 4.5-11.0 [facility] Creatinine and Glomerular fi ltration rate.predicted panel (S/P/Bld)Ordered By: Los Mcnally on 03-19-2022 Creatinine [Mass/Vol] 0.91 mg/dL 0.44-1.03 [facility] Eosinophils Auto (Bld) [#/Vo l]Ordered By: Los Mcnally on 03-19-2022 Eosinophils (Bld) [#/Vol] 0.1 10*3/uL 0.0-0.45 [facility] Eosinophils/100 WBC Auto (Bl d)Ordered By: Los Mcnally on 03-19-2022 Eosinophils/100 WBC (Bld) 1.4 % . [facility] Erythrocyte distribution wid th Auto (RBC) [Ratio]Ordered By: Los Mcnally on 03-19-2022 Erythrocyte distribution width (RBC) [Ratio] 14.9 % 11.9-15.3 [facility] Estimated glomerular filtrat ion rate (GFR) non- AmericanOrdered By: Los Mcnally on 03-19-2022 GFR/1.73 sq M.predicted among non-blacks MDRD (S/P/Bld) [Vol rate/Area] > 60 mL/Min [facility] Globulin Calc (S) [Mass/Vol] Ordered By: Los Mcnally on 03-19-2022 Globulin (S) [Mass/Vol] 3.6 g/dL [facility] Hematocrit Auto (Bld) [Volum e fraction]Ordered By: Los Mcnally on 03-19-2022 Hematocrit (Bld) [Volume fraction] 43.6 % 34.0-46.4 [facility] Laboratory - Hematology and Cell countsOrdered By: Los Mcnally on 03-19-2022 Nucleated RBC/100 WBC (Bld) [Ratio] 0.0 % 0-0.5 [facility] Lymphocytes Auto (Bld) [#/Vo l]Ordered By: Los Mcnally on 03-19-2022 Lymphocytes (Bld) [#/Vol] 2.6 10*3/uL 1.00-4.8 [facility] Lymphocytes/100 WBC Auto (Bl d)Ordered By: Los Mcnally on 03-19-2022 Lymphocytes/100 WBC (Bld) 34.0 % . [facility] MCH Auto (RBC) [Entitic mass ]Ordered By: Los Mcnally on 03-19-2022 MCH (RBC) [Entitic mass] 29.1 pg 24.7-34.3 [facility] MCHC Auto (RBC) [Mass/Vol]Or dered By: Los Mcnally on 03-19-2022 MCHC (RBC) [Mass/Vol] 32.8 g/dL 32.0-35.0 [facility] MCV Auto (RBC) [Entitic vol] Ordered By: Los Mcnally on 03-19-2022 MCV (RBC) [Entitic vol] 88.6 fL 80-100 [facility] Monocytes Auto (Bld) [#/Vol] Ordered By: Los Mcnally on 03-19-2022 Monocytes (Bld) [#/Vol] 0.5 10*3/uL 0.0-0.8 [facility] Monocytes/100 WBC Auto (Bld) Ordered By: Los Mcnally on 03-19-2022 Monocytes/100 WBC (Bld) 6.9 % . [facility] Neutrophils Auto (Bld) [#/Vo l]Ordered By: Los Mcnally on 03-19-2022 Neutrophils (Bld) [#/Vol] 4.3 10*3/uL 1.8-7.7 [facility] Neutrophils/100 WBC Auto (Bl d)Ordered By: Los Mcnally on 03-19-2022 Neutrophils/100 WBC (Bld) 57.1 % . [facility] No Panel InformationOrdered By: Los Mcnally on 03-19-2022 Estimated GFR () > 60 mL/Min [facility] Comment on above: GFR estimated refere nce range: According to KDOQI guidelines, <60 ml/min/1.73m2 is sufficient to diagnose a patient with chronic kidney disease. Pharmacy Creatinine Clearance (Chem 74.41 [facility] Platelet mean volume Auto (B ld) [Entitic vol]Ordered By: Los Mcnally on 03-19-2022 Platelet mean volume (Bld) [Entitic vol] 8.9 fL 6.3-10.7 [facility] Platelets Auto (Bld) [#/Vol] Ordered By: Los Mcnally on 03-19-2022 Platelets (Bld) [#/Vol] 266 10*3/uL 150-450 [facility] Prolactin [Mass/volume] in S alexis or PlasmaOrdered By: Los Mcnally on 03-19-2022 Prolactin [Mass/Vol] 18.55 ng/mL 3.34-26.72 [facility] Protein [Mass/volume] in Ser um or PlasmaOrdered By: Los Mcnally on 03-19-2022 Protein [Mass/Vol] 8.4 g/dL 6.1-7.9 [facility] RBC Auto (Bld) [#/Vol]Ordere d By: Los Mcnally on 03-19-2022 RBC (Bld) [#/Vol] 4.92 10*6/uL 3.60-5.00 [facility] Serum or plasma alanine white otransferase measurement without P-5'-P (enzymatic activiOrdered By: Los Mcnally on 03-19-2022 ALT No additional P-5'-P [Catalytic activity/Vol] 11 U/L 10-60 [facility] Serum or plasma albumin/glob ulin mass ratioOrdered By: Los Mcnally on 03-19-2022 Albumin/Globulin [Mass ratio] 1.3 {ratio} [facility] Serum or plasma alkaline ignacio sphatase measurement (enzymatic activity/volume)Ordered By: Los Mcnally on 03-19-2022 ALP [Catalytic activity/Vol] 51 U/L 32-92 [facility] Serum or plasma anion gap de terminationOrdered By: Los Mcnally on 03-19-2022 Anion gap [Moles/Vol] 17.7 mmol/L 6.0-15.0 [facility] Serum or plasma aspartate am inotransferase measurement (enzymatic activity/volume)Ordered By: Los Mcnally on 03-19-2022 AST [Catalytic activity/Vol] 22 U/L 10-42 [facility] Serum or plasma calcium randi urement (mass/volume)Ordered By: Los Mcnally on 03-19-2022 Calcium [Mass/Vol] 9.8 mg/dL 8.2-10.2 [facility] Serum or plasma chloride melonie surement (moles/volume)Ordered By: Los Mcnally on 03-19-2022 Chloride [Moles/Vol] 101 mmol/L 95-114 [facility] Serum or plasma glucose randi urement (mass/volume)Ordered By: Los Mcnally on 03-19-2022 Glucose [Mass/Vol] 83 mg/dL 70-100 [facility] Comment on above: ADA recommended [...] on 03-19-2022 Potassium [Moles/Vol] 3.7 mmol/L 3.5-5.1 [facility] Serum or plasma sodium measu rement (moles/volume)Ordered By: Los Mcnally on 03-19-2022 Sodium [Moles/Vol] 138 mmol/L 136-146 [facility] Serum or plasma total biliru bin measurement (mass/volume)Ordered By: Los Mcnally on 03-19-2022 Bilirubin [Mass/Vol] 0.7 mg/dL 0.3-1.2 [facility] Serum or plasma total carbon dioxide measurement (moles/volume)Ordered By: Los Mcnally on 03-19-2022 CO2 [Moles/Vol] 23.0 mmol/L 22.0-30.0 [facility] Serum or plasma urea nitroge n measurement (mass/volume)Ordered By: Los Mcnally on 03-19-2022 Urea nitrogen [Mass/Vol] 8 mg/dL 9-23 [facility] Albumin [Mass/volume] in Ser um or PlasmaOrdered By: Tommy Bowen on 02-25-2022 Albumin [Mass/Vol] 4.1 g/dL 3.2-5.5 [facility] Basophils Auto (Bld) [#/Vol] Ordered By: Tommy Bowen on 02-25-2022 Basophils (Bld) [#/Vol] 0.0 10*3/uL 0.0-0.2 [facility] Basophils/100 WBC Auto (Bld) Ordered By: Tommy Bowen on 02-25-2022 Basophils/100 WBC (Bld) 0.5 % . [facility] Blood hemoglobin measurement (mass/volume)Ordered By: Tommy Bowen on 02-25-2022 Hemoglobin (Bld) [Mass/Vol] 13.4 g/dL 11.8-15.4 [facility] Blood leukocytes automated c ount (number/volume)Ordered By: Tommy Bowen on 02-25-2022 WBC (Bld) [#/Vol] 8.0 10*3/uL 4.5-11.0 [facility] Creatinine and Glomerular fi ltration rate.predicted panel (S/P/Bld)Ordered By: Tommy Bowen on 02-25-2022 Creatinine [Mass/Vol] 0.75 mg/dL 0.44-1.03 [facility] Eosinophils Auto (Bld) [#/Vo l]Ordered By: Tommy Bowen on 02-25-2022 Eosinophils (Bld) [#/Vol] 0.1 10*3/uL 0.0-0.45 [facility] Eosinophils/100 WBC Auto (Bl d)Ordered By: Tommy Bowen on 02-25-2022 Eosinophils/100 WBC (Bld) 0.6 % . [facility] Erythrocyte distribution wid th Auto (RBC) [Ratio]Ordered By: Tommy Bowen on 02-25-2022 Erythrocyte distribution width (RBC) [Ratio] 14.2 % 11.9-15.3 [facility] Estimated glomerular filtrat ion rate (GFR) non- AmericanOrdered By: Tommy Bowen on 02-25-2022 GFR/1.73 sq M.predicted among non-blacks MDRD (S/P/Bld) [Vol rate/Area] > 60 mL/Min [facility] Globulin Calc (S) [Mass/Vol] Ordered By: Tommy Bowen on 02-25-2022 Globulin (S) [Mass/Vol] 3.2 g/dL [facility] Hematocrit Auto (Bld) [Volum e fraction]Ordered By: Tommy Bowen on 02-25-2022 Hematocrit (Bld) [Volume fraction] 41.0 % 34.0-46.4 [facility] Laboratory - Hematology and Cell countsOrdered By: Tommy Bowen on 02-25-2022 Nucleated RBC/100 WBC (Bld) [Ratio] 0.0 % 0-0.5 [facility] Lymphocytes Auto (Bld) [#/Vo l]Ordered By: Tommy Bowen on 02-25-2022 Lymphocytes (Bld) [#/Vol] 2.0 10*3/uL 1.00-4.8 [facility] Lymphocytes/100 WBC Auto (Bl d)Ordered By: Tommy Bowen on 02-25-2022 Lymphocytes/100 WBC (Bld) 25.6 % . [facility] MCH Auto (RBC) [Entitic mass ]Ordered By: Tommy Bowen on 02-25-2022 MCH (RBC) [Entitic mass] 28.7 pg 24.7-34.3 [facility] MCHC Auto (RBC) [Mass/Vol]Or dered By: Tommy Bowen on 02-25-2022 MCHC (RBC) [Mass/Vol] 32.7 g/dL 32.0-35.0 [facility] MCV Auto (RBC) [Entitic vol] Ordered By: Tommy Bowen on 02-25-2022 MCV (RBC) [Entitic vol] 87.8 fL 80-100 [facility] Monocytes Auto (Bld) [#/Vol] Ordered By: Tommy Bowen on 02-25-2022 Monocytes (Bld) [#/Vol] 0.6 10*3/uL 0.0-0.8 [facility] Monocytes/100 WBC Auto (Bld) Ordered By: Tommy Bowen on 02-25-2022 Monocytes/100 WBC (Bld) 7.4 % . [facility] Neutrophils Auto (Bld) [#/Vo l]Ordered By: Tommy Bowen on 02-25-2022 Neutrophils (Bld) [#/Vol] 5.2 10*3/uL 1.8-7.7 [facility] Neutrophils/100 WBC Auto (Bl d)Ordered By: Tommy Bowen on 02-25-2022 Neutrophils/100 WBC (Bld) 65.9 % . [facility] No Panel InformationOrdered By: Tommy Bowen on 02-25-2022 Estimated GFR () > 60 mL/Min [facility] Comment on above: GFR estimated refere nce range: According to KDOQI guidelines, <60 ml/min/1.73m2 is sufficient to diagnose a patient with chronic kidney disease. Pharmacy Creatinine Clearance (Chem 94.82 [facility] Platelet mean volume Auto (B ld) [Entitic vol]Ordered By: Tommy Bowen on 02-25-2022 Platelet mean volume (Bld) [Entitic vol] 8.1 fL 6.3-10.7 [facility] Platelets Auto (Bld) [#/Vol] Ordered By: Tommy Bowen on 02-25-2022 Platelets (Bld) [#/Vol] 260 10*3/uL 150-450 [facility] Protein [Mass/volume] in Ser um or PlasmaOrdered By: Tommy Bowen on 02-25-2022 Protein [Mass/Vol] 7.3 g/dL 6.1-7.9 [facility] RBC Auto (Bld) [#/Vol]Ordere d By: Tommy Bowen on 02-25-2022 RBC (Bld) [#/Vol] 4.67 10*6/uL 3.60-5.00 [facility] Serum or plasma alanine white otransferase measurement without P-5'-P (enzymatic activiOrdered By: Tommy Bowen on 02-25-2022 ALT No additional P-5'-P [Catalytic activity/Vol] 11 U/L 10-60 [facility] Serum or plasma albumin/glob ulin mass ratioOrdered By: Tommy Bowen on 02-25-2022 Albumin/Globulin [Mass ratio] 1.3 {ratio} [facility] Serum or plasma alkaline ignacio sphatase measurement (enzymatic activity/volume)Ordered By: Tommy Bowen on 02-25-2022 ALP [Catalytic activity/Vol] 52 U/L 32-92 [facility] Serum or plasma anion gap de terminationOrdered By: Tommy Bowen on 02-25-2022 Anion gap [Moles/Vol] 13.5 mmol/L 6.0-15.0 [facility] Serum or plasma aspartate am inotransferase measurement (enzymatic activity/volume)Ordered By: Tommy Bowen on 02-25-2022 AST [Catalytic activity/Vol] 18 U/L 10-42 [facility] Serum or plasma calcium randi urement (mass/volume)Ordered By: Tommy Bowen on 02-25-2022 Calcium [Mass/Vol] 9.6 mg/dL 8.2-10.2 [facility] Serum or plasma chloride melonie surement (moles/volume)Ordered By: Tommy Bowen on 02-25-2022 Chloride [Moles/Vol] 101 mmol/L 95-114 [facility] Serum or plasma glucose randi urement (mass/volume)Ordered By: Tommy Bowen on 02-25-2022 Glucose [Mass/Vol] 98 mg/dL 70-100 [facility] Comment on above: ADA recommended [...] on 02-25-2022 Potassium [Moles/Vol] 4.0 mmol/L 3.5-5.1 [facility] Serum or plasma sodium measu rement (moles/volume)Ordered By: Tommy Bowen on 02-25-2022 Sodium [Moles/Vol] 139 mmol/L 136-146 [facility] Serum or plasma total biliru bin measurement (mass/volume)Ordered By: Tommy Bowen on 02-25-2022 Bilirubin [Mass/Vol] 0.6 mg/dL 0.3-1.2 [facility] Serum or plasma total carbon dioxide measurement (moles/volume)Ordered By: Tommy Bowen on 02-25-2022 CO2 [Moles/Vol] 28.5 mmol/L 22.0-30.0 [facility] Serum or plasma urea nitroge n measurement (mass/volume)Ordered By: Tommy Bowen on 02-25-2022 Urea nitrogen [Mass/Vol] 7 mg/dL 9- [facility] CBC AUTO DIFFon 01-03-2022 BASO # 0.0 103/ul Normal 0.0-0.1 [facility] Comment on above: Performed By: #### C BC #### [facility] [address] [address] [address] Jovanni Maya Basophils/100 WBC (Bld) 0.2 % Normal 0.2-2.0 [facility] Comment on above: Performed By: #### C BC #### [facility] [address] [place] [address] Dr. Jovanni Maya EO # 0.0 103/ul Normal 0.0-0.7 [facility] Comment on above: Performed By: #### C BC #### [facility] [address] [place] [address] Dr. Jovanni Maya Eosinophils/100 WBC (Bld) 0.1 % Critically low 0.9-7.0 [facility] Comment on above: Performed By: #### C BC #### [facility] [address] [place] [address] Dr. Jovanni Maya Erythrocyte distribution width (RBC) [Ratio] 12.4 % Normal 11.0-15.0 [facility] Comment on above: Performed By: #### C BC #### [facility] [address] [place] [address] Dr. Jovanni Maya Hematocrit (Bld) [Volume fraction] 39.2 % Normal 36.0-48.0 [facility] Comment on above: Performed By: #### C BC #### [facility] [address] [place] [address] Dr. Jovanni Maya Hemoglobin (Bld) [Mass/Vol] 13.1 g/dL Normal 12.0-16.0 [facility] Comment on above: Performed By: #### C BC #### [facility] [address] [place] [address] Dr. Jovanni Maya IG # 0.05 10e3/ul Critically high 0.00-0.03 [facility] Comment on above: Performed By: #### C BC #### [facility] [address] [place] [address] Dr. Jovanni Maya IG % 0.3 % Normal 0.0-0.5 [facility] Comment on above: Performed By: #### C BC #### [facility] [address] [place] [address] Dr. Jovanni Maya LYMPH # 2.1 103/ul Normal 1.2-3.8 [facility] Comment on above: Performed By: #### C BC #### [facility] [address] [place] [address] Dr. Jovanni Maya Lymphocytes/100 WBC (Bld) 14.3 % Critically low 20.5-60.0 [facility] Comment on above: Performed By: #### C BC #### [facility] [address] [place] [address] Dr. Jovanni Maya MANUAL DIFF REQ NO Normal [facility] Comment on above: Performed By: #### C BC #### [facility] [address] [place] [address] Dr. Jovanni Maya MCH (RBC) [Entitic mass] 29.4 pg Normal 26.7-34.0 [facility] Comment on above: Performed By: #### C BC #### [facility] [address] [place] [address] Dr. Jovanni Maya MCHC (RBC) [Mass/Vol] 33.4 g/dL Normal 29.9-35.2 [facility] Comment on above: Performed By: #### C BC #### [facility] [address] [place] [address] Dr. Jovanni Maya MCV (RBC) [Entitic vol] 87.9 fL Normal 81.0-99.0 [facility] Comment on above: Performed By: #### C BC #### [facility] [address] [place] [address] Dr. Jovanni Maya MONO # 1.3 103/ul Critically high 0.3-0.8 [facility] Comment on above: Performed By: #### C BC #### [facility] [address] [place] [address] Dr. Jovanni Maya Monocytes/100 WBC (Bld) 8.4 % Normal 1.7-12.0 [facility] Comment on above: Performed By: #### C BC #### [facility] [address] [place] [address] Dr. Jovanni Maya NEUT # 11.4 103/ul Critically high 1.4-6.5 [facility] Comment on above: Performed By: #### C BC #### [facility] [address] [address] [address] Jovanni Maya Neutrophils/100 WBC (Bld) 76.7 % Critically high 43.0-75.0 [facility] Comment on above: Performed By: #### C BC #### [facility] [address] [address] [address] Jovanni Maya Platelet mean volume (Bld) [Entitic vol] 9.4 fL Critically low 9.5-13.5 [facility] Comment on above: Performed By: #### C BC #### [facility] [address] [place] [address] Dr. Jovanni Maya PLT 276 103/ul Normal 150-450 [facility] Comment on above: Performed By: #### C BC #### [facility] [address] [place] [address] Dr. Jovanni Maya RBC 4.46 106/ul Normal 4.20-5.40 [facility] Comment on above: Performed By: #### C BC #### [facility] [address] [place] [address] Dr. Jovanni Maya WBC 14.9 103/ul Critically high 4.0-11.0 [facility] Comment on above: Performed By: #### C BC #### [facility] [address] [place] [address] Dr. Jovanni Maya PROF CHEM 8 (BAS METB)on Anion gap [Moles/Vol] 14.2 mmol/L Normal [facility] Comment on above: Performed By: #### P REG, ACETON #### [facility] [address] [place] [address] Dr. Jovanni Maya Calcium [Mass/Vol] 9.3 mg/dL Normal 8.5-10.1 [facility] Comment on above: Performed By: #### P REG, ACETON #### [facility] [address] [place] [address] Dr. Jovanni Maya Chloride [Moles/Vol] 103 mmol/L Normal 98-107 [facility] Comment on above: Performed By: #### P REG, ACETON #### [facility] [address] [place] [address] Dr. Jovanni Maya CO2 [Moles/Vol] 26.6 mmol/L Normal 21.0-32.0 [facility] Comment on above: Performed By: #### P REG, ACETON #### [facility] [address] [place] [address] Dr. Jovanni Maya Creatinine [Mass/Vol] 0.80 mg/dL Normal 0.55-1.02 [facility] Comment on above: Performed By: #### P REG, ACETON #### [facility] [address] [place] [address] Dr. Jovanni Maya EGFR-AF SCOTTISH >60 Normal >=60 [facility] Comment on above: Performed By: #### P REG, ACETON #### [facility] [address] [place] [address] Dr. Jovanni Maya EGFR-NON AF SCOTTISH >60 Normal >=60 [facility] Comment on above: Performed By: #### P REG, ACETON #### [facility] [address] [place] [address] Dr. Jovanni Maya Glucose [Mass/Vol] 118 mg/dL Critically high 74-106 [facility] Comment on above: Performed By: #### P REG, ACETON #### [facility] [address] [place] [address] Dr. Jovanni Maya Potassium [Moles/Vol] 3.8 mmol/L Normal 3.5-5.1 [facility] Comment on above: Performed By: #### P REG, ACETON #### [facility] [address] [place] [address] Dr. Jovanni Maya Sodium [Moles/Vol] 140 mmol/L Normal 136-145 [facility] Comment on above: Performed By: #### P REG, ACETON #### [facility] [address] [place] [address] Dr. Jovanni Maya Urea nitrogen [Mass/Vol] 12.0 mg/dL Normal 7.0-18.0 [facility] Comment on above: Performed By: #### P REG ACETON #### [facility] [address] [place] [address] Dr. Jovanni Maya Urea nitrogen/Creatinine [Mass ratio] 15.0 mg/mg Normal [facility] Comment on above: Performed By: #### P REG, ACETON #### [facility] [address] [place] [address] Dr. Jovanni Maya XR CHEST 2 Von [...] FRED [place]LE Date: 2022-01-03 01:30 Normal [facility] CBC AUTO DIFFon 11-29-2021 BASO # 0.0 103/ul Normal 0.0-0.1 [facility] Comment on above: Performed By: #### C DANIEL HSTROPN #### [facility] [address] [place] [address] Dr. Jovanni Maya Basophils/100 WBC (Bld) 0.2 % Normal 0.2-2.0 [facility] Comment on above: Performed By: #### C DANIEL HSTROPN #### [facility] [address] [place] [address] Dr. Jovanni Maya EO # 0.2 103/ul Normal 0.0-0.7 [facility] Comment on above: Performed By: #### C DANIEL HSTROPN #### [facility] [address] [place] [address] Dr. Jovanni Maya Eosinophils/100 WBC (Bld) 3.2 % Normal 0.9-7.0 [facility] Comment on above: Performed By: #### C DANIEL HSTROPN #### [facility] [address] [place] [address] Dr. Jovanni Maya Erythrocyte distribution width (RBC) [Ratio] 12.2 % Normal 11.0-15.0 [facility] Comment on above: Performed By: #### C MP, HSTROPN #### [facility] [address] [place] [address] Dr. Jovanni Maya Hematocrit (Bld) [Volume fraction] 34.3 % Critically low 36.0-48.0 [facility] Comment on above: Performed By: #### C MP, HSTROPN #### [facility] [address] [place] [address] Dr. Jovanni Maya Hemoglobin (Bld) [Mass/Vol] 11.4 g/dL Critically low 12.0-16.0 [facility] Comment on above: Performed By: #### C MP, HSTROPN #### [facility] [address] [place] [address] Dr. Jovanni Maya IG # 0.01 10e3/ul Normal 0.00-0.03 [facility] Comment on above: Performed By: #### C MP, HSTROPN #### [facility] [address] [place] [address] Dr. Jovanni Maya IG % 0.2 % Normal 0.0-0.5 [facility] Comment on above: Performed By: #### C MP, HSTROPN #### [facility] [address] [place] [address] Dr. Jovanni Maya LYMPH # 2.5 103/ul Normal 1.2-3.8 [facility] Comment on above: Performed By: #### C MP, HSTROPN #### [facility] [address] [place] [address] Dr. Jovanni Maya Lymphocytes/100 WBC (Bld) 38.1 % Normal 20.5-60.0 [facility] Comment on above: Performed By: #### C MP, HSTROPN #### [facility] [address] [place] [address] Dr. oJvanni Maya MANUAL DIFF REQ NO Normal [facility] Comment on above: Performed By: #### C MP, HSTROPN #### [facility] [address] [place] [address] Dr. Jovanni Maya MCH (RBC) [Entitic mass] 29.6 pg Normal 26.7-34.0 [facility] Comment on above: Performed By: #### C MP, HSTROPN #### [facility] [address] [place] [address] Dr. Jovanni Maya MCHC (RBC) [Mass/Vol] 33.2 g/dL Normal 29.9-35.2 [facility] Comment on above: Performed By: #### C MP, HSTROPN #### [facility] [address] [place] [address] Dr. Jovanni Maya MCV (RBC) [Entitic vol] 89.1 fL Normal 81.0-99.0 [facility] Comment on above: Performed By: #### C MP, HSTROPN #### [facility] [address] [place] [address] Dr. Jovanni Maya MONO # 0.7 103/ul Normal 0.3-0.8 [facility] Comment on above: Performed By: #### C MP, HSTROPN #### [facility] [address] [place] [address] Dr. Jovanni Maya Monocytes/100 WBC (Bld) 10.2 % Normal 1.7-12.0 [facility] Comment on above: Performed By: #### C MP, HSTROPN #### [facility] [address] [place] [address] Dr. Jovanni Maya NEUT # 3.2 103/ul Normal 1.4-6.5 [facility] Comment on above: Performed By: #### C MP, HSTROPN #### [facility] [address] [place] [address] Dr. Jovanni Maya Neutrophils/100 WBC (Bld) 48.1 % Normal 43.0-75.0 [facility] Comment on above: Performed By: #### C MP, HSTROPN #### [facility] [address] [address] [address] Jovanni Maya Platelet mean volume (Bld) [Entitic vol] 9.8 fL Normal 9.5-13.5 [facility] Comment on above: Performed By: #### C MP, HSTROPN #### [facility] [address] [place] [address] Dr. Jovanni Maya PLT 222 103/ul Normal 150-450 [facility] Comment on above: Performed By: #### C MP, HSTROPN #### [facility] [address] [place] [address] Dr. Jovanni Maya RBC 3.85 106/ul Critically low 4.20-5.40 [facility] Comment on above: Performed By: #### C MP, HSTROPN #### [facility] [address] [place] [address] Dr. Jovanni Maya WBC 6.5 103/ul Normal 4.0-11.0 [facility] Comment on above: Performed By: #### C MP, HSTROPN #### [facility] [address] [place] [address] Dr. Jovanni Maya CULTURE URINEon 11-29-2021 CULTURE URINE Culture Observations : LIGHT GROWTH OF MIXED GENITAL ZANDER. NO POTENTIAL PATHOGENS SEEN. Normal [facility] Comment on above: Performed By: #### C MP, HSTROPN #### [facility] [address] [place] [address] Dr. Jovanni Maya DRUG SCREEN RAPID (URINE)on 11-29-2021 AMP Negative Normal NEGATIVE [facility] Comment on above: Performed By: #### P REG, ACETON #### [facility] [address] [place] [address] Dr. Jovanni Maya BAR Negative Normal NEGATIVE [facility] Comment on above: Performed By: #### P REG, ACETON #### [facility] [address] [place] [address] Dr. Jovanni Maya BUP Negative Normal NEGATIVE [facility] Comment on above: Performed By: #### P REG, ACETON #### [facility] [address] [place] [address] Dr. Jovanni Maya BZO Positive Abnormal NEGATIVE [facility] Comment on above: Performed By: #### P REG, ACETON #### [facility] [address] [place] [address] Dr. Jovanni Maya DARIEN Negative Normal NEGATIVE [facility] Comment on above: Performed By: #### P REG, ACETON #### [facility] [address] [place] [address] Dr. Jovanni Maya CUT-OFFS SEE BELOW Normal [facility] Comment on above: Result [...] Performed By: #### P REG, ACETON #### [facility] [address] [place] [address] Dr. Jovanni Maya DRUG CUT HEADER DRUG CLASS TEST SYST EM CUT-OFF CONCENTRATIONS ARE FOLLOWS: Normal [facility] Comment on above: Performed By: #### P REG, ACETON #### [facility] [address] [place] [address] Dr. Jovanni Maya mAMP Negative Normal NEGATIVE [facility] Comment on above: Performed By: #### P REG, ACETON #### [facility] [address] [place] [address] Dr. Jovanni Maya MTD Negative Normal NEGATIVE [facility] Comment on above: Performed By: #### P REG, ACETON #### [facility] [address] [place] [address] Dr. Jovanni Maya OPI Negative Normal NEGATIVE [facility] Comment on above: Performed By: #### P REG, ACETON #### [facility] [address] [place] [address] Dr. Jovanni Maya OXY Positive Abnormal NEGATIVE [facility] Comment on above: Performed By: #### P REG, ACETON #### [facility] [address] [place] [address] Dr. Jovanni Maya PCP Negative Normal NEGATIVE [facility] Comment on above: Performed By: #### P REG, ACETON #### [facility] [address] [place] [address] Dr. Jovanni Maya PPX Negative Normal NEGATIVE [facility] Comment on above: Performed By: #### P REG, ACETON #### [facility] [address] [place] [address] Dr. Jovanni Maya TCA Negative Normal NEGATIVE [facility] Comment on above: Performed By: #### P REG, ACETON #### [facility] [address] [place] [address] Dr. Jovanni Maya THC Positive Abnormal NEGATIVE [facility] Comment on above: Performed By: #### P REG, ACETON #### [facility] [address] [place] [address] Dr. Jovanni Maya ER URINE PROFILEon 2 Bilirubin Ql (U) SMALL Abnormal NEGATIVE [facility] Comment on above: Performed By: #### P REG, ACETON #### [facility] [address] [place] [address] Dr. Jovanni Maya Clarity (U) CLEAR Normal CLEAR [facility] Comment on above: Performed By: #### P REG, ACETON #### [facility] [address] [place] [address] Dr. Jovanni Maya Color (U) BROWN Abnormal YELLOW [facility] Comment on above: Performed By: #### P REG, ACETON #### [facility] [address] [place] [address] Dr. Jovanni Maya ERUAHD A micrscopic examina tion will be performed if indicated. Normal [facility] Comment on above: Performed By: #### P REG, ACETON #### [facility] [address] [place] [address] Dr. Jovanni Maya Glucose Ql (U) Negative Normal NEGATIVE [facility] Comment on above: Performed By: #### P REG, ACETON #### [facility] [address] [address] [address] Jovanni Maya Hemoglobin Ql (U) LARGE Abnormal NEGATIVE [facility] Comment on above: Performed By: #### P REG, ACETON #### [facility] [address] [place] [address] Dr. Jovanni Maya Ketones Ql (U) Negative Normal NEGATIVE [facility] Comment on above: Performed By: #### P REG, ACETON #### [facility] [address] [place] [address] Dr. Jovanni Maya LEUKOCYTES MODERATE Abnormal NEGATIVE [facility] Comment on above: Performed By: #### P REG, ACETON #### [facility] [address] [place] [address] Dr. Jovanni Maya Nitrite Ql (U) Negative Normal NEGATIVE [facility] Comment on above: Performed By: #### P REG, ACETON #### [facility] [address] [place] [address] Dr. Jovanni Maya pH (U) 6.0 [pH] Normal 5-9 [facility] Comment on above: Performed By: #### P REG, ACETON #### [facility] [address] [place] [address] Dr. Jovanni Maya Protein (U) [Mass/Vol] 100 mg/dL Abnormal NEGAT BRUNO/ TRACE [facility] Comment on above: Performed By: #### P REG, ACETON #### [facility] [address] [place] [address] Dr. Jovanni Maya SPEC GRAVITY 1.025 Normal 1.005-<=1. 025 [facility] Comment on above: Performed By: #### P REG, ACETON #### [facility] [address] [place] [address] Dr. Jovanni Maya UR MICRO IND INDICATED Normal [facility] Comment on above: Performed By: #### P REG, ACETON #### [facility] [address] [place] [address] Dr. Jovanni Maya Urobilinogen Qn (U) 1.0 {Carlos A'U}/dL Normal 0.2 - 1. 0 [facility] Comment on above: Performed By: #### P REG, ACETON #### [facility] [address] [place] [address] Dr. Jovanni Maya LACTATE/LACTIC ACIDon 2021 Lactate [Moles/Vol] 1.2 mmol/L Normal 0.4-1.9 [facility] Comment on above: Performed By: #### L ACT #### [facility] [address] [place] [address] Dr. Jovanni Maya URon 11-29-2021 , QUAL Negative Normal NEGATIVE [facility] Comment on above: Performed By: #### P REG, ACETON #### [facility] [address] [place] [address] Dr. Jovanni Maya PROF CHEM 8 (BAS METB)on Anion gap [Moles/Vol] 11.0 mmol/L Normal [facility] Comment on above: Performed By: #### C DANIEL, HSTROPN #### [facility] [address] [place] [address] Dr. Jovanni Maya Calcium [Mass/Vol] 8.7 mg/dL Normal 8.5-10.1 [facility] Comment on above: Performed By: #### C DANIEL, HSTROPN #### [facility] [address] [place] [address] Dr. Jovanni Maya Chloride [Moles/Vol] 105 mmol/L Normal 98-107 [facility] Comment on above: Performed By: #### C MP, HSTROPN #### [facility] [address] [place] [address] Dr. Jovanni Maya CO2 [Moles/Vol] 27.5 mmol/L Normal 21.0-32.0 [facility] Comment on above: Performed By: #### C DANIEL, HSTROPN #### [facility] [address] [address] [address] Jovanni Maya Creatinine [Mass/Vol] 0.84 mg/dL Normal 0.55-1.02 [facility] Comment on above: Performed By: #### C MP, HSTROPN #### [facility] [address] [address] [address] Jovanni Maya EGFR-AF SCOTTISH >60 Normal >=60 [facility] Comment on above: Performed By: #### C MP, HSTROPN #### [facility] [address] [address] [address] Jovanni Maya EGFR-NON AF SCOTTISH >60 Normal >=60 [facility] Comment on above: Performed By: #### C MP, HSTROPN #### [facility] [address] [address] [address] Jovanni Maya Glucose [Mass/Vol] 103 mg/dL Normal 74-106 [facility] Comment on above: Performed By: #### C MP, HSTROPN #### [facility] [address] [address] [address] Jovanni Maya Potassium [Moles/Vol] 3.5 mmol/L Normal 3.5-5.1 [facility] Comment on above: Performed By: #### C MP, HSTROPN #### [facility] [address] [address] [address] Jovanni Maya Sodium [Moles/Vol] 140 mmol/L Normal 136-[address] [facility] Comment on above: Performed By: #### C MP, HSTROPN #### [facility] [address] [address] [address] Jovanni Maya Urea nitrogen [Mass/Vol] 12.0 mg/dL Normal 7.0-18.0 [facility] Comment on above: Performed By: #### C MP, HSTROPN #### [facility] [address] [address] [address] Jovanni Maya Urea nitrogen/Creatinine [Mass ratio] 14.3 mg/mg Normal [facility] Comment on above: Performed By: #### C MP, HSTROPN #### [facility] [address] [address] [address] Jovanni Myaa URINE MICROSCOPIC ONLYon BACTERIA TRACE Abnormal NONE SEEN [facility] Comment on above: Performed By: #### P REG, ACETON #### [facility] [address] [place] [address] Dr. Jovanni Maya Bacteria identified Cx Nom (U) INDICATED Normal [facility] Comment on above: Performed By: #### P REG, ACETON #### [facility] [address] [address] [address] Jovanni Maya CA OX CRYSTALS RARE Normal [facility] Comment on above: Performed By: #### P REG, ACETON #### [facility] [address] [place] [address] Dr. Jovanni Maya CAST SEEN Abnormal NONE SEEN [facility] Comment on above: Performed By: #### P REG, ACETON #### [facility] [address] [place] [address] Dr. Jovanni Maya Crystals LM Nom (Urine sed) SEEN Abnormal NONE SEEN [facility] Comment on above: Performed By: #### P REG, ACETON #### [facility] [address] [place] [address] Dr. Jovanni Maya Epithelial cells LM Ql (Urine sed) FEW Abnormal NONE SEEN /RARE [facility] Comment on above: Performed By: #### P REG, ACETON #### [facility] [address] [address] [address] Jovanni Maya HYALINE CAST RARE Normal [facility] Comment on above: Performed By: #### P REG, ACETON #### [facility] [address] [address] [address] Jovanni Maya MUCOUS SMALL Abnormal NONE SEEN [facility] Comment on above: Performed By: #### P REG, ACETON #### [facility] [address] [place] [address] Dr. Jovanni Maya RBC 20-50 Abnormal 0-2 [facility] Comment on above: Performed By: #### P REG, ACETON #### [facility] [address] [place] [address] Dr. Jovanni Maya WBC 5-10 Abnormal NONE SEEN [facility] Comment on above: Performed By: #### P REG, ACETON #### [facility] [address] [place] [address] Dr. Jovanni Maya CBC AUTO DIFFon 10-16-2021 BASO # 0.0 103/ul Normal 0.0-0.1 [facility] Comment on above: Performed By: #### P REG, ACETON #### [facility] [address] [place] [address] Dr. Jovanni Maya Basophils/100 WBC (Bld) 0.2 % Normal 0.2-2.0 [facility] Comment on above: Performed By: #### P REG, ACETON #### [facility] [address] [place] [address] Dr. Jovanni Maya EO # 0.1 103/ul Normal 0.0-0.7 [facility] Comment on above: Performed By: #### P REG, ACETON #### [facility] [address] [place] [address] Dr. Jovanni Maya Eosinophils/100 WBC (Bld) 0.8 % Critically low 0.9-7.0 [facility] Comment on above: Performed By: #### P REG, ACETON #### [facility] [address] [place] [address] Dr. Jovanni Maya Erythrocyte distribution width (RBC) [Ratio] 12.2 % Normal 11.0-15.0 [facility] Comment on above: Performed By: #### P REG, ACETON #### [facility] [address] [place] [address] Dr. Jovanni Maya Hematocrit (Bld) [Volume fraction] 42.4 % Normal 36.0-48.0 [facility] Comment on above: Performed By: #### P REG, ACETON #### [facility] [address] [place] [address] Dr. Jovanni Maya Hemoglobin (Bld) [Mass/Vol] 14.5 g/dL Normal 12.0-16.0 [facility] Comment on above: Performed By: #### P REG, ACETON #### [facility] [address] [place] [address] Dr. Jovanni Maya IG # 0.04 10e3/ul Critically high 0.00-0.03 [facility] Comment on above: Performed By: #### P REG, ACETON #### [facility] [address] [place] [address] Dr. Jovanni Maya IG % 0.5 % Normal 0.0-0.5 [facility] Comment on above: Performed By: #### P REG, ACETON #### [facility] [address] [place] [address] Dr. Jovanni Maya LYMPH # 2.8 103/ul Normal 1.2-3.8 [facility] Comment on above: Performed By: #### P REG, ACETON #### [facility] [address] [place] [address] Dr. Jovanni Maya Lymphocytes/100 WBC (Bld) 31.8 % Normal 20.5-60.0 [facility] Comment on above: Performed By: #### P REG, ACETON #### [facility] [address] [place] [address] Dr. Jovanni Maya MANUAL DIFF REQ NO Normal [facility] Comment on above: Performed By: #### P REG, ACETON #### [facility] [address] [place] [address] Dr. Jovanni Maya MCH (RBC) [Entitic mass] 29.8 pg Normal 26.7-34.0 [facility] Comment on above: Performed By: #### P REG, ACETON #### [facility] [address] [place] [address] Dr. Jovanni Maya MCHC (RBC) [Mass/Vol] 34.2 g/dL Normal 29.9-35.2 [facility] Comment on above: Performed By: #### P REG, ACETON #### [facility] [address] [place] [address] Dr. Jovanni Maya MCV (RBC) [Entitic vol] 87.1 fL Normal 81.0-99.0 [facility] Comment on above: Performed By: #### P REG, ACETON #### [facility] [address] [place] [address] Dr. Jovanni Maya MONO # 0.6 103/ul Normal 0.3-0.8 [facility] Comment on above: Performed By: #### P REG, ACETON #### [facility] [address] [place] [address] Dr. Jovanni Maya Monocytes/100 WBC (Bld) 7.1 % Normal 1.7-12.0 [facility] Comment on above: Performed By: #### P REG, ACETON #### [facility] [address] [place] [address] Dr. Jovanni Maya NEUT # 5.2 103/ul Normal 1.4-6.5 [facility] Comment on above: Performed By: #### P REG, ACETON #### [facility] [address] [place] [address] Dr. Jovanni Maya Neutrophils/100 WBC (Bld) 59.6 % Normal 43.0-75.0 [facility] Comment on above: Performed By: #### P REG, ACETON #### [facility] [address] [place] [address] Dr. Jovanni Maya Platelet mean volume (Bld) [Entitic vol] 9.2 fL Critically low 9.5-13.5 [facility] Comment on above: Performed By: #### P REG, ACETON #### [facility] [address] [place] [address] Dr. Jovanni Maya PLT 301 103/ul Normal 150-450 [facility] Comment on above: Performed By: #### P REG, ACETON #### [facility] [address] [place] [address] Dr. Jovanni Maya RBC 4.87 106/ul Normal 4.20-5.40 [facility] Comment on above: Performed By: #### P REG, ACETON #### [facility] [address] [place] [address] Dr. Jovanni Maya WBC 8.7 103/ul Normal 4.0-11.0 [facility] Comment on above: Performed By: #### P REG, ACETON #### [facility] [address] [place] [address] Dr. Jovanni Maya CULTURE URINEon 10-16-2021 CULTURE URINE Culture Observations : LIGHT GROWTH OF MIXED GENITAL ZANDER. NO POTENTIAL PATHOGENS SEEN. Normal [facility] Comment on above: Performed By: #### C MP, HSTROPN #### [facility] [address] [address] [address] Jovanni Maya ER URINE PROFILEon Bilirubin Ql (U) Negative Normal NEGATIVE [facility] Comment on above: Performed By: #### P REG, ACETON #### [facility] [address] [place] [address] Dr. Jovanni Maya Clarity (U) CLEAR Normal CLEAR [facility] Comment on above: Performed By: #### P REG, ACETON #### [facility] [address] [place] [address] Dr. Jovanni Maya Color (U) LT. YELLOW Normal YELLOW [facility] Comment on above: Performed By: #### P REG, ACETON #### [facility] [address] [place] [address] Dr. Jovanni Maya ERUAHD A micrscopic examina tion will be performed if indicated. Normal [facility] Comment on above: Performed By: #### P REG, ACETON #### [facility] [address] [place] [address] Dr. Jovanni Maya Glucose Ql (U) Negative Normal NEGATIVE [facility] Comment on above: Performed By: #### P REG, ACETON #### [facility] [address] [place] [address] Dr. Jovanni Maya Hemoglobin Ql (U) LARGE Abnormal NEGATIVE [facility] Comment on above: Performed By: #### P REG, ACETON #### [facility] [address] [place] [address] Dr. Jovanni Maya Ketones Ql (U) TRACE Abnormal NEGATIVE [facility] Comment on above: Performed By: #### P REG, ACETON #### [facility] [address] [place] [address] Dr. Jovanni Maya LEUKOCYTES MODERATE Abnormal NEGATIVE [facility] Comment on above: Performed By: #### P REG, ACETON #### [facility] [address] [place] [address] Dr. Jovanni Maya Nitrite Ql (U) Negative Normal NEGATIVE [facility] Comment on above: Performed By: #### P REG, ACETON #### [facility] [address] [place] [address] Dr. Jovanni Maya pH (U) [pH] Abnormal 5-9 [facility] Comment on above: Performed By: #### P REG, ACETON #### [facility] [address] [place] [address] Dr. Jovanni Maya Protein (U) [Mass/Vol] 100 mg/dL Abnormal NEGAT BRUNO/ TRACE [facility] Comment on above: Performed By: #### P REG, ACETON #### [facility] [address] [place] [address] Dr. Jovanni Maya SPEC GRAVITY 1.015 Normal 1.005-<=1. 025 [facility] Comment on above: Performed By: #### P REG, ACETON #### [facility] [address] [place] [address] Dr. Jovanni Maya UR MICRO IND INDICATED Normal [facility] Comment on above: Performed By: #### P REG, ACETON #### [facility] [address] [place] [address] Dr. Jovanni Maya Urobilinogen Qn (U) 1.0 {Carlos A'U}/dL Normal 0.2 - 1. 0 [facility] Comment on above: Performed By: #### P REG, ACETON #### [facility] [address] [place] [address] Dr. Jovanni Maya LIPASEon 10-16-2021 Lipase [Catalytic activity/Vol] 85.0 U/L Normal 23.0-300.0 [facility] Comment on above: Performed By: #### P REG, ACETON #### [facility] [address] [place] [address] Dr. Jovanni Maya URon 10-16-2021 , QUAL Negative Normal NEGATIVE [facility] [place] Comment on above: Performed By: #### P REG, ACETON #### [facility] [address] [place] [address] Dr. Jovanni Maya PROF 14(COMP METB)on 022 Albumin [Mass/Vol] 4.4 g/dL Normal 3.4-5.0 [facility] Comment on above: Performed By: #### P REG, ACETON #### [facility] [address] [place] [address] Dr. Jovanni Maya Albumin/Globulin [Mass ratio] 1.2 {ratio} Normal [facility] Comment on above: Performed By: #### P REG, ACETON #### [facility] [address] [place] [address] Dr. Jovanni Maya ALP [Catalytic activity/Vol] 66 U/L Normal 46-116 [facility] Comment on above: Performed By: #### P REG, ACETON #### [facility] [address] [place] [address] Dr. Jovanni Maya ALT [Catalytic activity/Vol] 13 U/L Critically low 14-59 [facility] Comment on above: Performed By: #### P REG, ACETON #### [facility] [address] [place] [address] Dr. Jovanni Maya Anion gap [Moles/Vol] 11.4 mmol/L Normal [facility] Comment on above: Performed By: #### P REG, ACETON #### [facility] [address] [place] [address] Dr. Jovanni Maya AST [Catalytic activity/Vol] 13 U/L Critically low 15-37 [facility] Comment on above: Performed By: #### P REG, ACETON #### [facility] [address] [place] [address] Dr. Jovanni Maya Bilirubin [Mass/Vol] 0.6 mg/dL Normal 0.2-1.3 [facility] Comment on above: Performed By: #### P REG, ACETON #### [facility] [address] [place] [address] Dr. Jovanni Maya Calcium [Mass/Vol] 8.7 mg/dL Normal 8.5-10.[address] [facility] Comment on above: Performed By: #### P REG, ACETON #### [facility] [address] [place] [address] Dr. Jovanni Maya Chloride [Moles/Vol] 101 mmol/L Normal 98-107 [facility] Comment on above: Performed By: #### P REG, ACETON #### [facility] [address] [place] [address] Dr. Jovanni Maya CO2 [Moles/Vol] 27.5 mmol/L Normal 22.0-30.0 [facility] Comment on above: Performed By: #### P REG, ACETON #### [facility] [address] [place] [address] Dr. Jovanni Maya Creatinine [Mass/Vol] 0.80 mg/dL Normal 0.55-1.02 [facility] Comment on above: Performed By: #### P REG, ACETON #### [facility] [address] [place] [address] Dr. Jovanni Maya EGFR-AF SCOTTISH >60 Normal >=60 [facility] Comment on above: Performed By: #### P REG, ACETON #### [facility] [address] [place] [address] Dr. Jovanni Maya EGFR-NON AF SCOTTISH >60 Normal >=60 [facility] Comment on above: Performed By: #### P REG, ACETON #### [facility] [address] [place] [address] Dr. Joavnni Maya Globulin (S) [Mass/Vol] 3.7 g/dL Normal [facility] Comment on above: Performed By: #### P REG, ACETON #### [facility] [address] [place] [address] Dr. Jovanni Maya Glucose [Mass/Vol] 90 mg/dL Normal 74-106 [facility] Comment on above: Performed By: #### P REG, ACETON #### [facility] [address] [place] [address] Dr. Jovanni Maya Potassium [Moles/Vol] 3.9 mmol/L Normal 3.4-5.0 [facility] Comment on above: Performed By: #### P REG, ACETON #### [facility] [address] [place] [address] Dr. Jovanni Maya Protein [Mass/Vol] 8.1 g/dL Normal 6.1-8.2 [facility] Comment on above: Performed By: #### P REG, ACETON #### [facility] [address] [place] [address] Dr. Jovanni Maya Sodium [Moles/Vol] 136 mmol/L Critically low 137-145 [facility] Comment on above: Performed By: #### P REG, ACETON #### [facility] [address] [place] [address] Dr. Jovanni Maya Urea nitrogen [Mass/Vol] 10.0 mg/dL Normal 7.0-18.0 [facility] Comment on above: Performed By: #### P REG, ACETON #### [facility] [address] [place] [address] Dr. Jovanni Maya Urea nitrogen/Creatinine [Mass ratio] 12.5 mg/mg Normal [facility] Comment on above: Performed By: #### P REG, ACETON #### [facility] [address] [place] [address] Dr. Jovanni Maya URINE MICROSCOPIC ONLYon BACTERIA MODERATE Abnormal NONE SEEN [facility] Comment on above: Performed By: #### P REG, ACETON #### [facility] [address] [place] [address] Dr. Jovanni Maya Bacteria identified Cx Nom (U) INDICATED Normal [facility] Comment on above: Performed By: #### P REG, ACETON #### [facility] [address] [place] [address] Dr. Jovanni Maya CA OX CRYSTALS RARE Normal [facility] Comment on above: Performed By: #### P REG, ACETON #### [facility] [address] [place] [address] Dr. Jovanni Maya CAST NONE SEEN Normal NONE SEEN [facility] Comment on above: Performed By: #### P REG, ACETON #### [facility] [address] [place] [address] Dr. Jovanni Maya Crystals LM Nom (Urine sed) SEEN Abnormal NONE SEEN [facility] Comment on above: Performed By: #### P REG, ACETON #### [facility] [address] [place] [address] Dr. Jovanni Maya Epithelial cells LM Ql (Urine sed) MODERATE Abnormal NONE SEEN /RARE [facility] Comment on above: Performed By: #### P REG, ACETON #### [facility] [address] [place] [address] Dr. Jovanni Maya MUCOUS NONE SEEN Normal NONE SEEN [facility] Comment on above: Performed By: #### P REG, ACETON #### [facility] [address] [place] [address] Dr. Jovanni Maya RBC 50-75 Abnormal 0-2 [facility] Comment on above: Performed By: #### P REG, ACETON #### [facility] [address] [place] [address] Dr. Jovanni Maya WBC 10-20 Abnormal NONE SEEN [facility] Comment on above: Performed By: #### P REG, ACETON #### [facility] [address] [place] [address] Dr. Jovanni Maya XR KUB 1 VIEWon [...] COSMO ALONSO Date: 2021-10-16 19:18 Normal [facility] Activated partial thrombopla stin time (aPTT) in platelet poor plasma by coagulation aOrdered By: Roberto Whittaker on 09-28-2021 aPTT Coag (PPP) [Time] 34.9 s 25.1-36.5 [facility] Albumin [Mass/volume] in Ser um or PlasmaOrdered By: Roberto Whittaker on 09-28-2021 Albumin [Mass/Vol] 4.3 g/dL 3.2-5.5 [facility] Basophils Auto (Bld) [#/Vol] Ordered By: Roberto Whittaker on 09-28-2021 Basophils (Bld) [#/Vol] 0.0 10*3/uL 0.0-0.2 [facility] Basophils/100 WBC Auto (Bld) Ordered By: Roberto Whittaker on 09-28-2021 Basophils/100 WBC (Bld) 0.7 % [facility] Blood hemoglobin measurement (mass/volume)Ordered By: Roberto Whittaker on 09-28-2021 Hemoglobin (Bld) [Mass/Vol] 14.7 g/dL 11.8-15.4 [facility] Blood leukocytes automated c ount (number/volume)Ordered By: Roberto Whittaker on 09-28-2021 WBC (Bld) [#/Vol] 6.2 10*3/uL 4.5-11.0 [facility] Creatinine and Glomerular fi ltration rate.predicted panel (S/P/Bld)Ordered By: Roberto Whittaker on 09-28-2021 Creatinine [Mass/Vol] 0.73 mg/dL 0.44-1.03 [facility] Direct bilirubin measurement Ordered By: Roberto Whittaker on 09-28-2021 Bilirubin.direct [Mass/Vol] mg/dL 0.0-0.4 [facility] Eosinophils Auto (Bld) [#/Vo l]Ordered By: Roberto Whittaker on 09-28-2021 Eosinophils (Bld) [#/Vol] 0.1 10*3/uL 0.0-0.45 [facility] Eosinophils/100 WBC Auto (Bl d)Ordered By: Roberto Whittaker on 09-28-2021 Eosinophils/100 WBC (Bld) 1.8 % [facility] Erythrocyte distribution wid th Auto (RBC) [Ratio]Ordered By: Roberto Whittaker on 09-28-2021 Erythrocyte distribution width (RBC) [Ratio] 13.1 % 11.9-15.3 [facility] Estimated glomerular filtrat ion rate (GFR) non- AmericanOrdered By: Roberto Whittaker on 09-28-2021 GFR/1.73 sq M.predicted among non-blacks MDRD (S/P/Bld) [Vol rate/Area] > 60 mL/Min [facility] Globulin Calc (S) [Mass/Vol] Ordered By: Roberto Whittaker on 09-28-2021 Globulin (S) [Mass/Vol] 3.2 g/dL [facility] Hematocrit Auto (Bld) [Volum e fraction]Ordered By: Roberto Whittaker on 09-28-2021 Hematocrit (Bld) [Volume fraction] 44.2 % 34.0-46.4 [facility] Laboratory - Chemistry and C hemistry - challengeOrdered By: Roberto Whittaker on 09-28-2021 Lipase [Catalytic activity/Vol] 36.0 U/L 22-51 [facility] Natriuretic peptide B (Bld) [Mass/Vol] 17.0 pg/mL 5-100 [facility] Laboratory - CoagulationOrde red By: Roberto Whittaker on 09-28-2021 PT Coag (PPP) [Time] 12.3 s 9.0-12.9 [facility] - Hematology and Cell countsOrdered By: Roberto Whittaker on 09-28-2021 Nucleated RBC/100 WBC (Bld) [Ratio] 0.0 % 0-0.5 [facility] Lymphocytes Auto (Bld) [#/Vo l]Ordered By: Roberto Whittaker on 09-28-2021 Lymphocytes (Bld) [#/Vol] 2.7 10*3/uL 1.00-4.8 [facility] Lymphocytes/100 WBC Auto (Bl d)Ordered By: Roberto Whittaker on 09-28-2021 Lymphocytes/100 WBC (Bld) 43.6 % [facility] MCH Auto (RBC) [Entitic mass ]Ordered By: Roberto Whittaker on 09-28-2021 MCH (RBC) [Entitic mass] 29.8 pg 24.7-34.3 [facility] MCHC Auto (RBC) [Mass/Vol]Or dered By: Roberto Whittaker on 09-28-2021 MCHC (RBC) [Mass/Vol] 33.2 g/dL 32.0-35.0 [facility] MCV Auto (RBC) [Entitic vol] Ordered By: Roberto Whittaker on 09-28-2021 MCV (RBC) [Entitic vol] 89.6 fL 80-100 [facility] Monocytes Auto (Bld) [#/Vol] Ordered By: Roberto Whittaker on 09-28-2021 Monocytes (Bld) [#/Vol] 0.4 10*3/uL 0.0-0.8 [facility] Monocytes/100 WBC Auto (Bld) Ordered By: Roberto Whittaker on 09-28-2021 Monocytes/100 WBC (Bld) 6.8 % [facility] Neutrophils Auto (Bld) [#/Vo l]Ordered By: Roberto Whittaker on 09-28-2021 Neutrophils (Bld) [#/Vol] 2.9 10*3/uL 1.8-7.7 [facility] Neutrophils/100 WBC Auto (Bl d)Ordered By: Roberto Whittaker on 09-28-2021 Neutrophils/100 WBC (Bld) 47.1 % [facility] No Panel InformationOrdered By: Roberto Whittaker on 09-28-2021 Estimated GFR () > 60 mL/Min [facility] Comment on above: GFR estimated refere nce range: According to KDOQI guidelines, <60 ml/min/1.73m2 is sufficient to diagnose a patient with chronic kidney disease. Pharmacy Creatinine Clearance (Chem 91.21 [facility] Platelet mean volume Auto (B ld) [Entitic vol]Ordered By: Roberto Whittaker on 09-28-2021 Platelet mean volume (Bld) [Entitic vol] 7.7 fL 6.3-10.7 [facility] Platelet poor plasma interna tional normalized ratio (INR) by coagulation assay (relatOrdered By: Roberto Whittaker on 09-28-2021 INR Coag (PPP) [Relative time] 1.1 {INR} [facility] Comment on above: INR Therapeutic Rang [...] 09-28-2021 Platelets (Bld) [#/Vol] 291 10*3/uL 150-450 [facility] Protein [Mass/volume] in Ser um or PlasmaOrdered By: Roberto Whittaker on 09-28-2021 Protein [Mass/Vol] 7.5 g/dL 6.1-7.9 [facility] RBC Auto (Bld) [#/Vol]Ordere d By: Roberto Whittaker on 09-28-2021 RBC (Bld) [#/Vol] 4.93 10*6/uL 3.60-5.00 [facility] Serum or plasma alanine white otransferase measurement without P-5'-P (enzymatic activiOrdered By: Roberto Whittaker on 09-28-2021 ALT No additional P-5'-P [Catalytic activity/Vol] 9 U/L 10-60 [facility] Serum or plasma albumin/glob ulin mass ratioOrdered By: Roberto Whittaker on 09-28-2021 Albumin/Globulin [Mass ratio] 1.3 {ratio} [facility] Serum or plasma alkaline ignacio sphatase measurement (enzymatic activity/volume)Ordered By: Roberto Whittaker on 09-28-2021 ALP [Catalytic activity/Vol] 51 U/L 32-92 [facility] Serum or plasma aspartate am inotransferase measurement (enzymatic activity/volume)Ordered By: Roberto Whittaker on 09-28-2021 AST [Catalytic activity/Vol] 16 U/L 10-42 [facility] Serum or plasma calcium randi urement (mass/volume)Ordered By: Roberto Whittaker on 09-28-2021 Calcium [Mass/Vol] 9.2 mg/dL 8.2-10.2 [facility] Serum or plasma chloride melonie surement (moles/volume)Ordered By: Roberto Whittaker on 09-28-2021 Chloride [Moles/Vol] 104 mmol/L 95-114 [facility] Serum or plasma glucose randi urement (mass/volume)Ordered By: Roberto Whittaker on 09-28-2021 Glucose [Mass/Vol] 100 mg/dL 70-100 [facility] Comment on above: ADA recommended refe rence rangeRandom Glucose Reference Range is dependent on time and content of last meal. Glucose of more than 200 mg/dL in a nonstressed, ambulatory subject supports the diagnosis of Diabetes Mellitus. Serum or plasma non-glucuron idated bilirubin measurement (mass/volume)Ordered By: Roberto Whittaker on 09-28-2021 Bilirubin.indirect [Mass/Vol] TNP [facility] Comment on above: Test not performed Serum or plasma potassium me asurement (moles/volume)Ordered By: Roberto Whittaker on 09-28-2021 Potassium [Moles/Vol] 4.4 mmol/L 3.5-5.1 [facility] Serum or plasma sodium measu rement (moles/volume)Ordered By: Roberto Whittaker on 09-28-2021 Sodium [Moles/Vol] 140 mmol/L 136-146 [facility] Serum or plasma total biliru bin measurement (mass/volume)Ordered By: Roberto Whittaker on 09-28-2021 Bilirubin [Mass/Vol] 0.4 mg/dL 0.3-1.2 [facility] Serum or plasma total carbon dioxide measurement (moles/volume)Ordered By: Roberto Whittaker on 09-28-2021 CO2 [Moles/Vol] 28.1 mmol/L 22.0-30.0 [facility] Serum or plasma urea nitroge n measurement (mass/volume)Ordered By: Roberto Whittaker on 09-28-2021 Urea nitrogen [Mass/Vol] 5 mg/dL 9- [facility] Troponin I.cardiac [Mass/vol ume] in Serum or Plasma by High sensitivity methodOrdered By: Roberto Whittaker on 09-28-2021 Troponin I.cardiac High sensitivity method [Mass/Vol] < 3 pg/mL 0-15 [facility] Albumin [Mass/volume] in Ser um or PlasmaOrdered By: Som Fiore on 09-09-2021 Albumin [Mass/Vol] 4.0 g/dL 3.2-5.5 [facility] Amphetamine Screen Ql (U)Ord ered By: Som Fiore on 09-09-2021 Amphetamines Ql (U) Negative Negative [facility] Automated erythrocytes count in urine sediment (number/area)Ordered By: Som Fiore on 09-09-2021 RBC Auto (Urine sed) [#/Area] 50-100 [HPF] [facility] Automated leukocytes count i n urine sediment (number/area)Ordered By: Som Fiore on 09-09-2021 WBC Auto (Urine sed) [#/Area] 20-49 [HPF] [facility] Barbiturates [Presence] in U rineOrdered By: Som Fiore on 09-09-2021 Barbiturates Ql (U) Negative Negative [facility] Basophils Auto (Bld) [#/Vol] Ordered By: Som Fiore on 09-09-2021 Basophils (Bld) [#/Vol] 0.0 10*3/uL 0.0-0.2 [facility] Basophils/100 WBC Auto (Bld) Ordered By: Som Fiore on 09-09-2021 Basophils/100 WBC (Bld) 0.5 % [facility] Benzodiazepines [Presence] i n UrineOrdered By: Som Fiore on 09-09-2021 Benzodiazepines Ql (U) Negative Negative [facility] Bilirubin Test strip Ql (U)O rdered By: Som Fiore on 09-09-2021 Bilirubin Ql (U) Negative Negative [facility] Blood hemoglobin measurement (mass/volume)Ordered By: Som Fiore on 09-09-2021 Hemoglobin (Bld) [Mass/Vol] 14.1 g/dL 11.8-15.4 [facility] Blood leukocytes automated c ount (number/volume)Ordered By: Som Fiore on 09-09-2021 WBC (Bld) [#/Vol] 8.3 10*3/uL 4.5-11.0 [facility] Cannabinoids [Presence] in U rine by Screen methodOrdered By: Som Fiore on 09-09-2021 Cannabinoids Screen Ql (U) Positive Negative [facility] Comment on above: These are unconfirme d results and should not be used for legal purposes. Drug Cut-Off Concentration: AMPH 1000 ng/mL DOMINIQUE 200 ng/mL BRICE 200 ng/mL COCM 300 ng/mL OP 300 ng/mL PCP 25 ng/mL THC 20 ng/mL Color Auto (U)Ordered By: Giovanni Fiore on 09-09-2021 Color (U) Yellow Yellow [facility] Creatinine and Glomerular fi ltration rate.predicted panel (S/P/Bld)Ordered By: Som Fiore on 09-09-2021 Creatinine [Mass/Vol] 0.76 mg/dL 0.44-1.03 [facility] Eosinophils Auto (Bld) [#/Vo l]Ordered By: Som Fiore on 09-09-2021 Eosinophils (Bld) [#/Vol] 0.1 10*3/uL 0.0-0.45 [facility] Eosinophils/100 WBC Auto (Bl d)Ordered By: Som Fiore on 09-09-2021 Eosinophils/100 WBC (Bld) 1.8 % [facility] Erythrocyte distribution wid th Auto (RBC) [Ratio]Ordered By: Som Fiore on 09-09-2021 Erythrocyte distribution width (RBC) [Ratio] 13.1 % 11.9-15.3 [facility] Estimated glomerular filtrat ion rate (GFR) non- AmericanOrdered By: Som Fiore on 09-09-2021 GFR/1.73 sq M.predicted among non-blacks MDRD (S/P/Bld) [Vol rate/Area] > 60 mL/Min [facility] Globulin Calc (S) [Mass/Vol] Ordered By: Som Fiore on 09-09-2021 Globulin (S) [Mass/Vol] 3.0 g/dL [facility] Glucose Glucometer (BldC) [M ass/Vol]Ordered By: Som Fiore on 09-09-2021 Glucose [Mass/Vol] 106 mg/dL [facility] Comment on above: Random Glucose Refer ence Range is dependent on time and content of last meal. Glucose of more than 200 mg/dL in a nonstressed, ambulatory subject supports the diagnosis of Diabetes Mellitus. Hematocrit Auto (Bld) [Volum e fraction]Ordered By: Som Fiore on 09-09-2021 Hematocrit (Bld) [Volume fraction] 40.9 % 34.0-46.4 [facility] Ketones Auto test strip (U) [Mass/Vol]Ordered By: Som Fiore on 09-09-2021 Ketones (U) [Mass/Vol] Negative [facility] and C hemistry - challengeOrdered By: Som Fiore on 09-09-2021 Magnesium [Mass/Vol] 2.0 mg/dL 1.6-2.6 [facility] - CoagulationOrde red By: Som Fiore on 09-09-2021 PT Coag (PPP) [Time] 12.4 s 9.0-12.9 [facility] - Drug toxicology Ordered By: Som Fiore on 09-09-2021 Opiates Ql (U) Negative Negative [facility] - Hematology and Cell countsOrdered By: Som Fiore on 09-09-2021 Nucleated RBC/100 WBC (Bld) [Ratio] 0.1 % 0-0.5 [facility] - UrinalysisOrder ed By: Som Fiore on 09-09-2021 Hyaline casts LM Ql (Urine sed) 0-8 [LPF] [facility] Lymphocytes Auto (Bld) [#/Vo l]Ordered By: Som Fiore on 09-09-2021 Lymphocytes (Bld) [#/Vol] 3.2 10*3/uL 1.00-4.8 [facility] Lymphocytes/100 WBC Auto (Bl d)Ordered By: Som Fiore on 09-09-2021 Lymphocytes/100 WBC (Bld) 38.6 % [facility] MCH Auto (RBC) [Entitic mass ]Ordered By: Som Fiore on 09-09-2021 MCH (RBC) [Entitic mass] 30.6 pg 24.7-34.3 [facility] MCHC Auto (RBC) [Mass/Vol]Or dered By: Som Fiore on 09-09-2021 MCHC (RBC) [Mass/Vol] 34.5 g/dL 32.0-35.0 [facility] MCV Auto (RBC) [Entitic vol] Ordered By: Som Fiore on 09-09-2021 MCV (RBC) [Entitic vol] 88.6 fL 80-100 [facility] Monocytes Auto (Bld) [#/Vol] Ordered By: Som Fiore on 09-09-2021 Monocytes (Bld) [#/Vol] 0.5 10*3/uL 0.0-0.8 [facility] Monocytes/100 WBC Auto (Bld) Ordered By: Som Fiore on 09-09-2021 Monocytes/100 WBC (Bld) 6.3 % [facility] Neutrophils Auto (Bld) [#/Vo l]Ordered By: Som Fiore on 09-09-2021 Neutrophils (Bld) [#/Vol] 4.4 10*3/uL 1.8-7.7 [facility] Neutrophils/100 WBC Auto (Bl d)Ordered By: Som Fiore on 09-09-2021 Neutrophils/100 WBC (Bld) 52.8 % [facility] Nitrite Test strip Ql (U)Ord ered By: Som Fiore on 09-09-2021 Nitrite Ql (U) Negative Negative [facility] No Panel InformationOrdered By: Som Fiore on 09-09-2021 Estimated GFR () > 60 mL/Min [facility] Comment on above: GFR estimated refere nce range: According to KDOQI guidelines, <60 ml/min/1.73m2 is sufficient to diagnose a patient with chronic kidney disease. Pharmacy Creatinine Clearance (Chem 83.88 [facility] Phencyclidine Screen Ql (U)O rdered By: Som Fiore on 09-09-2021 Phencyclidine Ql (U) Negative Negative [facility] Platelet mean volume Auto (B ld) [Entitic vol]Ordered By: Som Fiore on 09-09-2021 Platelet mean volume (Bld) [Entitic vol] 8.5 fL 6.3-10.7 [facility] Platelet poor plasma interna tional normalized ratio (INR) by coagulation assay (relatOrdered By: Som Fiore on 09-09-2021 INR Coag (PPP) [Relative time] 1.1 {INR} [facility] Comment on above: INR Therapeutic Rang [...] 4.5 Platelets Auto (Bld) [#/Vol] Ordered By: Som Fiore on 09-09-2021 Platelets (Bld) [#/Vol] 249 10*3/uL 150-450 [facility] Protein Auto test strip (U) [Mass/Vol]Ordered By: Som Fiore on 09-09-2021 Protein (U) [Mass/Vol] 30 mg/dL Negative [facility] Protein [Mass/volume] in Ser um or PlasmaOrdered By: Som Fiore on 09-09-2021 Protein [Mass/Vol] 7.0 g/dL 6.1-7.9 [facility] RBC Auto (Bld) [#/Vol]Ordere d By: Som Fiore on 09-09-2021 RBC (Bld) [#/Vol] 4.62 10*6/uL 3.60-5.00 [facility] Serum or plasma alanine white otransferase measurement without P-5'-P (enzymatic activiOrdered By: Som Fiore on 09-09-2021 ALT No additional P-5'-P [Catalytic activity/Vol] 11 U/L 10-60 [facility] Serum or plasma albumin/glob ulin mass ratioOrdered By: Som Fiore on 09-09-2021 Albumin/Globulin [Mass ratio] 1.3 {ratio} [facility] Serum or plasma alkaline ignacio sphatase measurement (enzymatic activity/volume)Ordered By: Som Fiore on 09-09-2021 ALP [Catalytic activity/Vol] 45 U/L 32-92 [facility] Serum or plasma aspartate am inotransferase measurement (enzymatic activity/volume)Ordered By: Som Fiore on 09-09-2021 AST [Catalytic activity/Vol] 24 U/L 10-42 [facility] Serum or plasma calcium randi urement (mass/volume)Ordered By: Som Fiore on 09-09-2021 Calcium [Mass/Vol] 9.2 mg/dL 8.2-10.2 [facility] Serum or plasma chloride melonie surement (moles/volume)Ordered By: Som Fiore on 09-09-2021 Chloride [Moles/Vol] 103 mmol/L 95-114 [facility] Serum or plasma glucose randi urement (mass/volume)Ordered By: Som Fiore on 09-09-2021 Glucose [Mass/Vol] 85 mg/dL 70-100 [facility] Comment on above: ADA recommended refe rence rangeRandom Glucose Reference Range is dependent on time and content of last meal. Glucose of more than 200 mg/dL in a nonstressed, ambulatory subject supports the diagnosis of Diabetes Mellitus. Serum or plasma potassium me asurement (moles/volume)Ordered By: Som Fiore on 09-09-2021 Potassium [Moles/Vol] 4.2 mmol/L 3.5-5.1 [facility] Serum or plasma sodium measu rement (moles/volume)Ordered By: Som Fiore on 09-09-2021 Sodium [Moles/Vol] 138 mmol/L 136-146 [facility] Serum or plasma total biliru bin measurement (mass/volume)Ordered By: Som Fiore on 09-09-2021 Bilirubin [Mass/Vol] 0.3 mg/dL 0.3-1.2 [facility] Serum or plasma total carbon dioxide measurement (moles/volume)Ordered By: Som Fiore on 09-09-2021 CO2 [Moles/Vol] 26.3 mmol/L 22.0-30.0 [facility] Serum or plasma urea nitroge n measurement (mass/volume)Ordered By: Som Fiore on 09-09-2021 Urea nitrogen [Mass/Vol] 8 mg/dL 9-23 [facility] Specific gravity Auto test s trip (U) [Rel density]Ordered By: Som Fiore on 09-09-2021 Specific gravity (U) [Rel density] 1.017 1.001-1.03 0 [facility] Squamous epithelial cells de tection in urine sediment by light microscopyOrdered By: Som Fiore on 09-09-2021 Epithelial cells.squamous LM Ql (Urine sed) 1-2 [HPF] [facility] Urine bacteria detection by automated methodOrdered By: Som Fiore on 09-09-2021 Bacteria Auto Ql (U) None seen None Seen [facility] Urine clarity by refractomet ry automatedOrdered By: Som Fiore on 09-09-2021 Clarity Refractometry automated (U) Cloudy Clear [facility] Urine cocaine detectionOrder ed By: Som Fiore on 09-09-2021 Cocaine Ql (U) Negative Negative [facility] Urine culture routineOrdered By: Som Fiore on 09-09-2021 Bacteria identified Cx Nom (U) 2 Days [facility] Urine glucose measurement by automated test strip (mass/volume)Ordered By: Som Fiore on 09-09-2021 Glucose Auto test strip (U) [Mass/Vol] Normal mg/dL Normal [facility] Urine hemoglobin detection b y automated test stripOrdered By: Som Fiore on 09-09-2021 Hemoglobin Auto test strip Ql (U) 2+ Negative [facility] Urine leukocyte esterase det ection by automated test stripOrdered By: Som Fiore on 09-09-2021 Leukocyte esterase Auto test strip Ql (U) 3+ Negative [facility] Urobilinogen Auto test strip (U) [Mass/Vol]Ordered By: Som Fiore on 09-09-2021 Urobilinogen (U) [Mass/Vol] Normal mg/dL Normal [facility] pH Auto test strip (U)Ordere d By: Som Fiore on 09-09-2021 pH (U) 7.0 [pH] 5.0-9.0 [facility] Albumin [Mass/volume] in Ser um or PlasmaOrdered By: Tommy Bowen on 08-12-2021 Albumin [Mass/Vol] 4.0 g/dL 3.2-5.5 [facility] Automated erythrocytes count in urine sediment (number/area)Ordered By: Tommy Bowen on 08-12-2021 RBC Auto (Urine sed) [#/Area] Innumerable [HPF] [facility] Automated leukocytes count i n urine sediment (number/area)Ordered By: Tommy Bowen on 08-12-2021 WBC Auto (Urine sed) [#/Area] 5-9 [HPF] [facility] Basophils Auto (Bld) [#/Vol] Ordered By: Tommy Bowen on 08-12-2021 Basophils (Bld) [#/Vol] 0.0 10*3/uL 0.0-0.2 [facility] Basophils/100 WBC Auto (Bld) Ordered By: Tommy Bowen on 08-12-2021 Basophils/100 WBC (Bld) 0.3 % [facility] Bilirubin Test strip Ql (U)O rdered By: Tommy Bowen on 08-12-2021 Bilirubin Ql (U) Negative Negative [facility] Blood hemoglobin measurement (mass/volume)Ordered By: Tommy Bowen on 08-12-2021 Hemoglobin (Bld) [Mass/Vol] 13.9 g/dL 11.8-15.4 [facility] Blood leukocytes automated c ount (number/volume)Ordered By: Tommy Bowen on 08-12-2021 WBC (Bld) [#/Vol] 8.6 10*3/uL 4.5-11.0 [facility] Color Auto (U)Ordered By: Hermes Bowen on 08-12-2021 Color (U) Yellow Yellow [facility] Creatinine and Glomerular fi ltration rate.predicted panel (S/P/Bld)Ordered By: Tommy Bowen on 08-12-2021 Creatinine [Mass/Vol] 0.70 mg/dL 0.44-1.03 [facility] Eosinophils Auto (Bld) [#/Vo l]Ordered By: Tommy Bowen on 08-12-2021 Eosinophils (Bld) [#/Vol] 0.0 10*3/uL 0.0-0.45 [facility] Eosinophils/100 WBC Auto (Bl d)Ordered By: Tommy Bowen on 08-12-2021 Eosinophils/100 WBC (Bld) 0.3 % [facility] Erythrocyte distribution wid th Auto (RBC) [Ratio]Ordered By: Tommy Bowen on 08-12-2021 Erythrocyte distribution width (RBC) [Ratio] 12.7 % 11.9-15.3 [facility] Estimated glomerular filtrat ion rate (GFR) non- AmericanOrdered By: Tommy Bowen on 08-12-2021 GFR/1.73 sq M.predicted among non-blacks MDRD (S/P/Bld) [Vol rate/Area] > 60 mL/Min [facility] Globulin Calc (S) [Mass/Vol] Ordered By: Tommy Bowen on 08-12-2021 Globulin (S) [Mass/Vol] 3.6 g/dL [facility] Glucose Glucometer (BldC) [M ass/Vol]Ordered By: Tommy Bowen on 08-12-2021 Glucose [Mass/Vol] 102 mg/dL [facility] Comment on above: Random Glucose Refer ence Range is dependent on time and content of last meal. Glucose of more than 200 mg/dL in a nonstressed, ambulatory subject supports the diagnosis of Diabetes Mellitus. Hematocrit Auto (Bld) [Volum e fraction]Ordered By: Tommy Bowen on 08-12-2021 Hematocrit (Bld) [Volume fraction] 40.4 % 34.0-46.4 [facility] Ketones Auto test strip (U) [Mass/Vol]Ordered By: Tommy Bowen on 08-12-2021 Ketones (U) [Mass/Vol] Trace Negative Fi [facility] Laboratory - Hematology and Cell countsOrdered By: Tommy Bowen on 08-12-2021 Nucleated RBC/100 WBC (Bld) [Ratio] 0.1 % 0-0.5 [facility] - UrinalysisOrder ed By: Tommy Bowen on 08-12-2021 Hyaline casts LM Ql (Urine sed) 0-8 [LPF] [facility] Lymphocytes Auto (Bld) [#/Vo l]Ordered By: Tommy Bowen on 08-12-2021 Lymphocytes (Bld) [#/Vol] 2.0 10*3/uL 1.00-4.8 [facility] Lymphocytes/100 WBC Auto (Bl d)Ordered By: Tommy Bowen on 08-12-2021 Lymphocytes/100 WBC (Bld) 23.2 % [facility] MCH Auto (RBC) [Entitic mass ]Ordered By: Tommy Bowen on 08-12-2021 MCH (RBC) [Entitic mass] 30.2 pg 24.7-34.3 [facility] MCHC Auto (RBC) [Mass/Vol]Or dered By: Tommy Bowen on 08-12-2021 MCHC (RBC) [Mass/Vol] 34.5 g/dL 32.0-35.0 [facility] MCV Auto (RBC) [Entitic vol] Ordered By: Tommy Bowen on 08-12-2021 MCV (RBC) [Entitic vol] 87.6 fL 80-100 [facility] Monocytes Auto (Bld) [#/Vol] Ordered By: Tommy Bowen on 08-12-2021 Monocytes (Bld) [#/Vol] 0.6 10*3/uL 0.0-0.8 [facility] Monocytes/100 WBC Auto (Bld) Ordered By: Tommy Bowen on 08-12-2021 Monocytes/100 WBC (Bld) 6.7 % [facility] Neutrophils Auto (Bld) [#/Vo l]Ordered By: Tommy Bowen on 08-12-2021 Neutrophils (Bld) [#/Vol] 6.0 10*3/uL 1.8-7.7 [facility] Neutrophils/100 WBC Auto (Bl d)Ordered By: Tommy Bowen on 08-12-2021 Neutrophils/100 WBC (Bld) 69.5 % [facility] Nitrite Test strip Ql (U)Ord ered By: Tommy Bowen on 08-12-2021 Nitrite Ql (U) Negative Negative [facility] No Panel InformationOrdered By: Tommy Bowen on 08-12-2021 Estimated GFR () > 60 mL/Min [facility] Comment on above: GFR estimated refere nce range: According to KDOQI guidelines, <60 ml/min/1.73m2 is sufficient to diagnose a patient with chronic kidney disease. Pharmacy Creatinine Clearance (Chem 143.12 [facility] Platelet mean volume Auto (B ld) [Entitic vol]Ordered By: Tommy Bowen on 08-12-2021 Platelet mean volume (Bld) [Entitic vol] 7.9 fL 6.3-10.7 [facility] Platelets Auto (Bld) [#/Vol] Ordered By: Tommy Bowen on 08-12-2021 Platelets (Bld) [#/Vol] 315 10*3/uL 150-450 [facility] Protein Auto test strip (U) [Mass/Vol]Ordered By: Tommy Bowen on 08-12-2021 Protein (U) [Mass/Vol] 30 mg/dL Negative [facility] Protein [Mass/volume] in Ser um or PlasmaOrdered By: Tommy Bowen on 08-12-2021 Protein [Mass/Vol] 7.6 g/dL 6.1-7.9 [facility] RBC Auto (Bld) [#/Vol]Ordere d By: Tommy Bowen on 08-12-2021 RBC (Bld) [#/Vol] 4.61 10*6/uL 3.60-5.00 [facility] Serum or plasma alanine white otransferase measurement without P-5'-P (enzymatic activiOrdered By: Tommy Bowen on 08-12-2021 ALT No additional P-5'-P [Catalytic activity/Vol] 11 U/L 10-60 [facility] Serum or plasma albumin/glob ulin mass ratioOrdered By: Tommy Bowen on 08-12-2021 Albumin/Globulin [Mass ratio] 1.1 {ratio} [facility] Serum or plasma alkaline ignacio sphatase measurement (enzymatic activity/volume)Ordered By: Tommy Bowen on 08-12-2021 ALP [Catalytic activity/Vol] 58 U/L 32-92 [facility] Serum or plasma aspartate am inotransferase measurement (enzymatic activity/volume)Ordered By: Tommy Bowen on 08-12-2021 AST [Catalytic activity/Vol] 16 U/L 10-42 [facility] Serum or plasma calcium randi urement (mass/volume)Ordered By: Tommy Bowen on 08-12-2021 Calcium [Mass/Vol] 9.1 mg/dL 8.2-10.2 [facility] Serum or plasma chloride melonie surement (moles/volume)Ordered By: Tommy Bowen on 08-12-2021 Chloride [Moles/Vol] 102 mmol/L 95-114 [facility] Serum or plasma glucose randi urement (mass/volume)Ordered By: Tommy Bowen on 08-12-2021 Glucose [Mass/Vol] 86 mg/dL 70-100 [facility] Comment on above: ADA recommended refe rence rangeRandom Glucose Reference Range is dependent on time and content of last meal. Glucose of more than 200 mg/dL in a nonstressed, ambulatory subject supports the diagnosis of Diabetes Mellitus. Serum or plasma potassium me asurement (moles/volume)Ordered By: Tommy Bowen on 08-12-2021 Potassium [Moles/Vol] 3.6 mmol/L 3.5-5.1 [facility] Serum or plasma sodium measu rement (moles/volume)Ordered By: Tommy Bowen on 08-12-2021 Sodium [Moles/Vol] 136 mmol/L 136-146 [facility] Serum or plasma total biliru bin measurement (mass/volume)Ordered By: Tommy Bowen on 08-12-2021 Bilirubin [Mass/Vol] 0.5 mg/dL 0.3-1.2 [facility] Serum or plasma total carbon dioxide measurement (moles/volume)Ordered By: Tommy Bowen on 08-12-2021 CO2 [Moles/Vol] 23.8 mmol/L 22.0-30.0 [facility] Serum or plasma urea nitroge n measurement (mass/volume)Ordered By: Tommy Bowen on 08-12-2021 Urea nitrogen [Mass/Vol] 6 mg/dL 9-23 [facility] Specific gravity Auto test s trip (U) [Rel density]Ordered By: Tommy Bowen on 08-12-2021 Specific gravity (U) [Rel density] 1.018 1.001-1.03 0 [facility] Squamous epithelial cells de tection in urine sediment by light microscopyOrdered By: Tommy Bowen on 08-12-2021 Epithelial cells.squamous LM Ql (Urine sed) 3-4 [HPF] [facility] Urine bacteria detection by automated methodOrdered By: Tommy Bowen on 08-12-2021 Bacteria Auto Ql (U) None seen None [facility] Urine clarity by refractomet ry automatedOrdered By: Tommy Bowen on 08-12-2021 Clarity Refractometry automated (U) Clear Clear [facility] Urine culture routineOrdered By: Tommy Bowen on 08-12-2021 Bacteria identified Cx Nom (U) No Growth 2 Days [facility] Urine glucose measurement by automated test strip (mass/volume)Ordered By: Tommy Bowen on 08-12-2021 Glucose Auto test strip (U) [Mass/Vol] Normal mg/dL Normal [facility] Urine hemoglobin detection b y automated test stripOrdered By: Tommy Bowen on 08-12-2021 Hemoglobin Auto test strip Ql (U) 3+ Negative [facility] Urine leukocyte esterase det ection by automated test stripOrdered By: Tommy Bowen on 08-12-2021 Leukocyte esterase Auto test strip Ql (U) 1+ Negative [facility] Urobilinogen Auto test strip (U) [Mass/Vol]Ordered By: Tommy Bowen on 08-12-2021 Urobilinogen (U) [Mass/Vol] Normal mg/dL Normal [facility] pH Auto test strip (U)Ordere d By: Tommy Bowen on 08-12-2021 pH (U) 8.0 [pH] 5.0-9.0 [facility] Albumin [Mass/volume] in Ser um or PlasmaOrdered By: Tommy Bowen on 08-07-2021 Albumin [Mass/Vol] 4.4 g/dL 3.2-5.5 [facility] Automated erythrocytes count in urine sediment (number/area)Ordered By: Tommy Bowen on 08-07-2021 RBC Auto (Urine sed) [#/Area] 50-100 [HPF] [facility] Automated leukocytes count i n urine sediment (number/area)Ordered By: Tommy Bowen on 08-07-2021 WBC Auto (Urine sed) [#/Area] 10-19 [HPF] [facility] Basophils Auto (Bld) [#/Vol] Ordered By: Tommy Bowen on 08-07-2021 Basophils (Bld) [#/Vol] 0.0 10*3/uL 0.0-0.2 [facility] Basophils/100 WBC Auto (Bld) Ordered By: Tommy Bowen on 08-07-2021 Basophils/100 WBC (Bld) 0.4 % [facility] Bilirubin Test strip Ql (U)O rdered By: Tommy Bowen on 08-07-2021 Bilirubin Ql (U) Negative Negative [facility] Blood hemoglobin measurement (mass/volume)Ordered By: Tommy Bowen on 08-07-2021 Hemoglobin (Bld) [Mass/Vol] 14.1 g/dL 11.8-15.4 [facility] Blood leukocytes automated c ount (number/volume)Ordered By: Tommy Bowen on 08-07-2021 WBC (Bld) [#/Vol] 10.0 10*3/uL 4.5-11.0 [facility] Color Auto (U)Ordered By: Hermes Bowen on 08-07-2021 Color (U) Yellow Yellow [facility] Creatinine and Glomerular fi ltration rate.predicted panel (S/P/Bld)Ordered By: Tommy Bowen on 08-07-2021 Creatinine [Mass/Vol] 0.75 mg/dL 0.44-1.03 [facility] Eosinophils Auto (Bld) [#/Vo l]Ordered By: Tommy Bowen on 08-07-2021 Eosinophils (Bld) [#/Vol] 0.0 10*3/uL 0.0-0.45 [facility] Eosinophils/100 WBC Auto (Bl d)Ordered By: Tommy Bowen on 08-07-2021 Eosinophils/100 WBC (Bld) 0.4 % [facility] Erythrocyte distribution wid th Auto (RBC) [Ratio]Ordered By: Tommy Bowen on 08-07-2021 Erythrocyte distribution width (RBC) [Ratio] 12.7 % 11.9-15.3 [facility] Estimated glomerular filtrat ion rate (GFR) non- AmericanOrdered By: Tommy Bowen on 08-07-2021 GFR/1.73 sq M.predicted among non-blacks MDRD (S/P/Bld) [Vol rate/Area] > 60 mL/Min [facility] Globulin Calc (S) [Mass/Vol] Ordered By: Tommy Bowen on 08-07-2021 Globulin (S) [Mass/Vol] 3.6 g/dL [facility] Hematocrit Auto (Bld) [Volum e fraction]Ordered By: Tommy Bowen on 08-07-2021 Hematocrit (Bld) [Volume fraction] 41.5 % 34.0-46.4 [facility] Ketones Auto test strip (U) [Mass/Vol]Ordered By: Tommy Bowen on 08-07-2021 Ketones (U) [Mass/Vol] Trace Negative [facility] - Hematology and Cell countsOrdered By: Tommy Bowen on 08-07-2021 Nucleated RBC/100 WBC (Bld) [Ratio] 0.0 % 0-0.5 [facility] - UrinalysisOrder ed By: Tommy Bowen on 08-07-2021 Hyaline casts LM Ql (Urine sed) 0-8 [LPF] [facility] Lymphocytes Auto (Bld) [#/Vo l]Ordered By: Tommy Bowen on 08-07-2021 Lymphocytes (Bld) [#/Vol] 2.5 10*3/uL 1.00-4.8 [facility] Lymphocytes/100 WBC Auto (Bl d)Ordered By: Tommy Bowen on 08-07-2021 Lymphocytes/100 WBC (Bld) 25.4 % [facility] MCH Auto (RBC) [Entitic mass ]Ordered By: Tommy Bowen on 08-07-2021 MCH (RBC) [Entitic mass] 29.8 pg 24.7-34.3 [facility] MCHC Auto (RBC) [Mass/Vol]Or dered By: Tommy Bowen on 08-07-2021 MCHC (RBC) [Mass/Vol] 33.9 g/dL 32.0-35.0 [facility] MCV Auto (RBC) [Entitic vol] Ordered By: Tommy Bowen on 08-07-2021 MCV (RBC) [Entitic vol] 87.7 fL 80-100 [facility] Monocytes Auto (Bld) [#/Vol] Ordered By: Tommy Bowen on 08-07-2021 Monocytes (Bld) [#/Vol] 0.8 10*3/uL 0.0-0.8 [facility] Monocytes/100 WBC Auto (Bld) Ordered By: Tommy Bowen on 08-07-2021 Monocytes/100 WBC (Bld) 7.8 % [facility] Neutrophils Auto (Bld) [#/Vo l]Ordered By: Tommy Bowen on 08-07-2021 Neutrophils (Bld) [#/Vol] 6.6 10*3/uL 1.8-7.7 [facility] Neutrophils/100 WBC Auto (Bl d)Ordered By: Tommy Bowen on 08-07-2021 Neutrophils/100 WBC (Bld) 66.0 % [facility] Nitrite Test strip Ql (U)Ord ered By: Tommy Bowen on 08-07-2021 Nitrite Ql (U) Negative Negative [facility] No Panel InformationOrdered By: Tommy Bowen on 08-07-2021 Estimated GFR () > 60 mL/Min [facility] Comment on above: GFR estimated refere nce range: According to KDOQI guidelines, <60 ml/min/1.73m2 is sufficient to diagnose a patient with chronic kidney disease. Pharmacy Creatinine Clearance (Chem N/A [facility] Platelet mean volume Auto (B ld) [Entitic vol]Ordered By: Tommy Bowen on 08-07-2021 Platelet mean volume (Bld) [Entitic vol] 7.5 fL 6.3-10.7 [facility] Platelets Auto (Bld) [#/Vol] Ordered By: Tommy Bowen on 08-07-2021 Platelets (Bld) [#/Vol] 325 10*3/uL 150-450 [facility] Protein Auto test strip (U) [Mass/Vol]Ordered By: Tommy Bowen on 08-07-2021 Protein (U) [Mass/Vol] 30 mg/dL Negative Fi [facility] Protein [Mass/volume] in Ser um or PlasmaOrdered By: Tommy Bowen on 08-07-2021 Protein [Mass/Vol] 8.0 g/dL 6.1-7.9 [facility] RBC Auto (Bld) [#/Vol]Ordere d By: Tommy Bowen on 08-07-2021 RBC (Bld) [#/Vol] 4.73 10*6/uL 3.60-5.00 [facility] Serum or plasma alanine white otransferase measurement without P-5'-P (enzymatic activiOrdered By: Tommy Bowen on 08-07-2021 ALT No additional P-5'-P [Catalytic activity/Vol] 9 U/L 10-60 [facility] Serum or plasma albumin/glob ulin mass ratioOrdered By: Tommy Bowen on 08-07-2021 Albumin/Globulin [Mass ratio] 1.2 {ratio} [facility] Serum or plasma alkaline ignacio sphatase measurement (enzymatic activity/volume)Ordered By: Tommy Bowen on 08-07-2021 ALP [Catalytic activity/Vol] 56 U/L 32-92 [facility] Serum or plasma aspartate am inotransferase measurement (enzymatic activity/volume)Ordered By: Tommy Bowen on 08-07-2021 AST [Catalytic activity/Vol] 19 U/L 10-42 [facility] Serum or plasma calcium randi urement (mass/volume)Ordered By: Tommy Bowen on 08-07-2021 Calcium [Mass/Vol] 9.3 mg/dL 8.2-10.2 [facility] Serum or plasma chloride melonie surement (moles/volume)Ordered By: Tommy Bowen on 08-07-2021 Chloride [Moles/Vol] 102 mmol/L 95-114 [facility] Serum or plasma glucose randi urement (mass/volume)Ordered By: Tommy Bowen on 08-07-2021 Glucose [Mass/Vol] 88 mg/dL 70-100 [facility] Comment on above: ADA recommended refe rence rangeRandom Glucose Reference Range is dependent on time and content of last meal. Glucose of more than 200 mg/dL in a nonstressed, ambulatory subject supports the diagnosis of Diabetes Mellitus. Serum or plasma potassium me asurement (moles/volume)Ordered By: Tommy Bowen on 08-07-2021 Potassium [Moles/Vol] 3.7 mmol/L 3.5-5.1 [facility] Serum or plasma sodium measu rement (moles/volume)Ordered By: Tommy Bowen on 08-07-2021 Sodium [Moles/Vol] 135 mmol/L 136-146 [facility] Serum or plasma total biliru bin measurement (mass/volume)Ordered By: Tommy Bowen on 08-07-2021 Bilirubin [Mass/Vol] 0.6 mg/dL 0.3-1.2 [facility] Serum or plasma total carbon dioxide measurement (moles/volume)Ordered By: Tommy Bowen on 08-07-2021 CO2 [Moles/Vol] 21.2 mmol/L 22.0-30.0 [facility] Serum or plasma urea nitroge n measurement (mass/volume)Ordered By: Tommy Bowen on 08-07-2021 Urea nitrogen [Mass/Vol] 10 mg/dL 9-23 [facility] Specific gravity Auto test s trip (U) [Rel density]Ordered By: Tommy Bowen on 08-07-2021 Specific gravity (U) [Rel density] 1.018 1.001-1.03 0 [facility] Squamous epithelial cells de tection in urine sediment by light microscopyOrdered By: Tommy Bowen on 08-07-2021 Epithelial cells.squamous LM Ql (Urine sed) 3-4 [HPF] [facility] Urine bacteria detection by automated methodOrdered By: Tommy Bowen on 08-07-2021 Bacteria Auto Ql (U) None seen None [facility]en [facility] Urine clarity by refractomet ry automatedOrdered By: Tommy Bowen on 08-07-2021 Clarity Refractometry automated (U) Clear Clear [facility] Urine culture routineOrdered By: Tommy Bowen on 08-07-2021 Bacteria identified Cx Nom (U) No Growth 2 Days [facility] Urine glucose measurement by automated test strip (mass/volume)Ordered By: Tommy Bowen on 08-07-2021 Glucose Auto test strip (U) [Mass/Vol] Normal mg/dL Normal [facility] Urine hemoglobin detection b y automated test stripOrdered By: Tommy Bowen on 08-07-2021 Hemoglobin Auto test strip Ql (U) 2+ Negative [facility] Urine leukocyte esterase det ection by automated test stripOrdered By: Tommy Bowen on 08-07-2021 Leukocyte esterase Auto test strip Ql (U) 2+ Negative [facility] Urobilinogen Auto test strip (U) [Mass/Vol]Ordered By: Tommy Bowen on 08-07-2021 Urobilinogen (U) [Mass/Vol] Normal mg/dL Normal [facility] pH Auto test strip (U)Ordere d By: Tommy Bowen on 08-07-2021 pH (U) 7.0 [pH] 5.0-9.0 [facility] Albumin [Mass/volume] in Ser um or PlasmaOrdered By: Bobby Rojas on 07-10-2021 Albumin [Mass/Vol] 3.8 g/dL 3.2-5.5 [facility] Automated erythrocytes count in urine sediment (number/area)Ordered By: Bobby Rojas on 07-10-2021 RBC Auto (Urine sed) [#/Area] Innumerable [HPF] [facility] Automated leukocytes count i n urine sediment (number/area)Ordered By: Bobby Rojas on 07-10-2021 WBC Auto (Urine sed) [#/Area] 5-9 [HPF] [facility] Basophils Auto (Bld) [#/Vol] Ordered By: Bobby Rojas on 07-10-2021 Basophils (Bld) [#/Vol] 0.0 10*3/uL 0.0-0.2 [facility] Basophils/100 WBC Auto (Bld) Ordered By: Bobby Rojas on 07-10-2021 Basophils/100 WBC (Bld) 0.6 % [facility] Bilirubin Test strip Ql (U)O rdered By: Bobby Rojas on 07-10-2021 Bilirubin Ql (U) Negative Negative [facility] Blood hemoglobin measurement (mass/volume)Ordered By: Bobby Rojas on 07-10-2021 Hemoglobin (Bld) [Mass/Vol] 13.2 g/dL 11.8-15.4 [facility] Blood leukocytes automated c ount (number/volume)Ordered By: Bobby Rojas on 07-10-2021 WBC (Bld) [#/Vol] 5.8 10*3/uL 4.5-11.0 [facility] Color Auto (U)Ordered By: Victorino Rojas on 07-10-2021 Color (U) Red Yellow [facility] Creatinine and Glomerular fi ltration rate.predicted panel (S/P/Bld)Ordered By: Bobby Rojas on 07-10-2021 Creatinine [Mass/Vol] 0.80 mg/dL 0.44-1.03 [facility] Eosinophils Auto (Bld) [#/Vo l]Ordered By: Bobby Rojas on 07-10-2021 Eosinophils (Bld) [#/Vol] 0.1 10*3/uL 0.0-0.45 [facility] Eosinophils/100 WBC Auto (Bl d)Ordered By: Bobby Rojas on 07-10-2021 Eosinophils/100 WBC (Bld) 1.4 % [facility] Erythrocyte distribution wid th Auto (RBC) [Ratio]Ordered By: Bobby Rojas on 07-10-2021 Erythrocyte distribution width (RBC) [Ratio] 13.0 % 11.9-15.3 [facility] Estimated glomerular filtrat ion rate (GFR) non- AmericanOrdered By: Bobby Rojas on 07-10-2021 GFR/1.73 sq M.predicted among non-blacks MDRD (S/P/Bld) [Vol rate/Area] > 60 mL/Min [facility] Globulin Calc (S) [Mass/Vol] Ordered By: Bobby Rojas on 07-10-2021 Globulin (S) [Mass/Vol] 2.7 g/dL [facility] Hematocrit Auto (Bld) [Volum e fraction]Ordered By: Bobby Rojas on 07-10-2021 Hematocrit (Bld) [Volume fraction] 38.6 % 34.0-46.4 [facility] Ketones Auto test strip (U) [Mass/Vol]Ordered By: Bobby Rojas on 07-10-2021 Ketones (U) [Mass/Vol] Negative [facility] and C hemistry - challengeOrdered By: Bobby Rojas on 07-10-2021 Magnesium [Mass/Vol] 2.0 mg/dL 1.6-2.6 [facility] - Hematology and Cell countsOrdered By: Bobby Rojas on 07-10-2021 Nucleated RBC/100 WBC (Bld) [Ratio] 0.3 % 0-0.5 [facility] - UrinalysisOrder ed By: Bobby Rojas on 07-10-2021 Hyaline casts LM Ql (Urine sed) 0-8 [LPF] [facility] Lymphocytes Auto (Bld) [#/Vo l]Ordered By: Bobby Rojas on 07-10-2021 Lymphocytes (Bld) [#/Vol] 2.0 10*3/uL 1.00-4.8 [facility] Lymphocytes/100 WBC Auto (Bl d)Ordered By: Bobby Rojas on 07-10-2021 Lymphocytes/100 WBC (Bld) 34.4 % [facility] MCH Auto (RBC) [Entitic mass ]Ordered By: Bobby Rojas on 07-10-2021 MCH (RBC) [Entitic mass] 30.9 pg 24.7-34.3 [facility] MCHC Auto (RBC) [Mass/Vol]Or dered By: Bobby Rojas on 07-10-2021 MCHC (RBC) [Mass/Vol] 34.2 g/dL 32.0-35.0 [facility] MCV Auto (RBC) [Entitic vol] Ordered By: Bobby Rojas on 07-10-2021 MCV (RBC) [Entitic vol] 90.3 fL 80-100 [facility] Monocytes Auto (Bld) [#/Vol] Ordered By: Bobby Rojas on 07-10-2021 Monocytes (Bld) [#/Vol] 0.4 10*3/uL 0.0-0.8 [facility] Monocytes/100 WBC Auto (Bld) Ordered By: Bobby Rojas on 07-10-2021 Monocytes/100 WBC (Bld) 7.4 % [facility] Neutrophils Auto (Bld) [#/Vo l]Ordered By: Bobby Rojas on 07-10-2021 Neutrophils (Bld) [#/Vol] 3.3 10*3/uL 1.8-7.7 [facility] Neutrophils/100 WBC Auto (Bl d)Ordered By: Bobby Rojas on 07-10-2021 Neutrophils/100 WBC (Bld) 56.2 % [facility] Nitrite Test strip Ql (U)Ord ered By: Bobby Rojas on 07-10-2021 Nitrite Ql (U) Negative Negative [facility] No Panel InformationOrdered By: Bobby Rojas on 07-10-2021 Estimated GFR () > 60 mL/Min [facility] Comment on above: GFR estimated refere nce range: According to KDOQI guidelines, <60 ml/min/1.73m2 is sufficient to diagnose a patient with chronic kidney disease. Pharmacy Creatinine Clearance (Chem 84.65 [facility] Phosphate [Mass/volume] in S alexis or PlasmaOrdered By: Bobby Rojas on 07-10-2021 Phosphate [Mass/Vol] 2.6 mg/dL 2.5-4.6 [facility] Platelet mean volume Auto (B ld) [Entitic vol]Ordered By: Bobby Rojas on 07-10-2021 Platelet mean volume (Bld) [Entitic vol] 8.2 fL 6.3-10.7 [facility] Platelets Auto (Bld) [#/Vol] Ordered By: Bobby Rojas on 07-10-2021 Platelets (Bld) [#/Vol] 243 10*3/uL 150-450 [facility] Protein Auto test strip (U) [Mass/Vol]Ordered By: Bobby Rojas on 07-10-2021 Protein (U) [Mass/Vol] Trace mg/dL Negative F [facility] Protein [Mass/volume] in Ser um or PlasmaOrdered By: Bobby Rojas on 07-10-2021 Protein [Mass/Vol] 6.5 g/dL 6.1-7.9 [facility] RBC Auto (Bld) [#/Vol]Ordere d By: Bobby Rojas on 07-10-2021 RBC (Bld) [#/Vol] 4.27 10*6/uL 3.60-5.00 [facility] Serum or plasma alanine white otransferase measurement without P-5'-P (enzymatic activiOrdered By: Bobby Rojas on 07-10-2021 ALT No additional P-5'-P [Catalytic activity/Vol] 9 U/L 10-60 [facility] Serum or plasma albumin/glob ulin mass ratioOrdered By: Bobby Rojas on 07-10-2021 Albumin/Globulin [Mass ratio] 1.4 {ratio} [facility] Serum or plasma alkaline ignacio sphatase measurement (enzymatic activity/volume)Ordered By: Bobby Rojas on 07-10-2021 ALP [Catalytic activity/Vol] 43 U/L 32-92 [facility] Serum or plasma aspartate am inotransferase measurement (enzymatic activity/volume)Ordered By: Bobby Rojas on 07-10-2021 AST [Catalytic activity/Vol] 19 U/L 10-42 [facility] Serum or plasma calcium randi urement (mass/volume)Ordered By: Bobby Rojas on 07-10-2021 Calcium [Mass/Vol] 9.0 mg/dL 8.2-10.2 [facility] Serum or plasma chloride melonie surement (moles/volume)Ordered By: Bobby Rojas on 07-10-2021 Chloride [Moles/Vol] 103 mmol/L 95-114 [facility] Serum or plasma glucose randi urement (mass/volume)Ordered By: Bobby Rojas on 07-10-2021 Glucose [Mass/Vol] 96 mg/dL 70-100 [facility] Comment on above: ADA recommended refe rence rangeRandom Glucose Reference Range is dependent on time and content of last meal. Glucose of more than 200 mg/dL in a nonstressed, ambulatory subject supports the diagnosis of Diabetes Mellitus. Serum or plasma potassium me asurement (moles/volume)Ordered By: Bobby Rojas on 07-10-2021 Potassium [Moles/Vol] 3.4 mmol/L 3.5-5.1 [facility] Serum or plasma sodium measu rement (moles/volume)Ordered By: Bobby Rojas on 07-10-2021 Sodium [Moles/Vol] 140 mmol/L 136-146 [facility] Serum or plasma total biliru bin measurement (mass/volume)Ordered By: Bobby Rojas on 07-10-2021 Bilirubin [Mass/Vol] 0.6 mg/dL 0.3-1.2 [facility] Serum or plasma total carbon dioxide measurement (moles/volume)Ordered By: Bobby Rojas on 07-10-2021 CO2 [Moles/Vol] 25.5 mmol/L 22.0-30.0 [facility] Serum or plasma urea nitroge n measurement (mass/volume)Ordered By: Bobby Rojas on 07-10-2021 Urea nitrogen [Mass/Vol] 6 mg/dL 9-23 [facility] Specific gravity Auto test s trip (U) [Rel density]Ordered By: Bobby Rojas on 07-10-2021 Specific gravity (U) [Rel density] 1.007 1.001-1.03 0 [facility] Squamous epithelial cells de tection in urine sediment by light microscopyOrdered By: Bobby Rojas on 07-10-2021 Epithelial cells.squamous LM Ql (Urine sed) 1-2 [HPF] [facility] Urine bacteria detection by automated methodOrdered By: Bobby Rojas on 07-10-2021 Bacteria Auto Ql (U) 2+ None [facility]en [facility] Urine clarity by refractomet ry automatedOrdered By: Bobby Rojas on 07-10-2021 Clarity Refractometry automated (U) Clear Clear [facility] Urine culture routineOrdered By: Bobby Rojas on 07-10-2021 Bacteria identified Cx Nom (U) Escherichia coli [facility] Urine glucose measurement by automated test strip (mass/volume)Ordered By: Bobby Rojas on 07-10-2021 Glucose Auto test strip (U) [Mass/Vol] Normal mg/dL Normal [facility] Urine hemoglobin detection b y automated test stripOrdered By: Bobby Rojas on 07-10-2021 Hemoglobin Auto test strip Ql (U) 3+ Negative [facility] Urine leukocyte esterase det ection by automated test stripOrdered By: Bobby Rojas on 07-10-2021 Leukocyte esterase Auto test strip Ql (U) 2+ Negative [facility] Urobilinogen Auto test strip (U) [Mass/Vol]Ordered By: Bobby Rojas on 01-14-2022 Urobilinogen (U) [Mass/Vol] Normal mg/dL Normal [facility] pH Auto test strip (U)Ordere d By: Bobbyhannah Rojas on 07-10-2021 pH (U) 7.5 [pH] 5.0-9.0 [facility] Keppraon 03-24-2021 KEPP 13 ug/mL Normal [facility] Comment on above: Result Comment: A reference [...] known. Performed By: #### DYLON GOMEZ #### [facility] [address] [place] [id number] [facility] Director: Jhon Rios MD #### MG ELAN, CDP #### [facility] [address] [facility] [place] [address] [facility] Director: Jude Nieves DO Lamotrigineon 03-24-2021 Lamotrigine <1.0 Low 3.0-15.0 [facility] Comment on above: Result Comment: Neither a [...] lamotrigine may be needed. Performed By: #### BERTO GOMEZO #### [facility] [address] [place] [address] [facility] Director: Jhon Rios MD #### MG ELAN, CDP #### [facility] [address] [place] [address] [facility] Director: Jude Nieves DO CBC with Diffon 03-23-2021 Abs. Basophil 0.00 k/uL Normal 0.0-0.2 [facility] Comment on above: Performed By: #### DYLON GOMEZ #### [address] [address] [facility] Director: Jhon Rios MD #### MG ELAN, CDP #### [facility] [address] [place] [address] [facility] Director: Jude Nieves DO Abs.Neutrophil (Seg) 4.60 k/uL Normal 1.3-9.1 [facility] Comment on above: Performed By: #### DYLON GOMEZ #### [address] [address] [facility] Director: Jhon Rios MD #### MG ELAN, CDP #### [facility] [address] [place] [address] [facility] Director: Jude Nieves DO Basophils/100 WBC (Bld) 1 % Normal 0-2 [facility] Comment on above: Performed By: #### DYLON GOMEZ #### [address] [address] [facility] Director: Jhon Rios MD #### MG ELAN, CDP #### [facility] [address] [place] [address] [facility] Director: Jude Nieves DO Eosinophils (Bld) [#/Vol] 0.10 10*3/uL Normal 0.0-0.4 [facility] Comment on above: Performed By: #### DYLON GOMEZ #### [address] [id number] [facility] Director: Jhon Rios MD #### CP, MG, CDP #### [facility] [address] [place] [address] [facility] Director: Jude Nieves DO Eosinophils/100 WBC (Bld) 1 % Normal 0-4 [facility] Comment on above: Performed By: #### DYLON GOMEZ #### [address] [address] [facility] Director: Jhon Rios MD #### CP, MG, CDP #### [facility] [address] [place] [address] [facility] Director: Jude Nieves DO Erythrocyte distribution width (RBC) [Ratio] 12.4 % Normal 11.5-14.9 [facility] Comment on above: Performed By: #### DYLON GOMEZ #### [address] [address] [facility] Director: Jhon Rios MD #### ELAN, MG, CDP #### [facility] [address] [place] [address] [facility] Director: Jude Nieves DO Hematocrit (Bld) [Volume fraction] 43.3 % Normal 36-46 [facility] Comment on above: Performed By: #### DYLON GOMEZ #### [address] [address] [facility] Director: Jhon Rios MD #### ELAN, MG, CDP #### [facility] [address] [place] [address] [facility] Director: Jude Nieves DO Hemoglobin (Bld) [Mass/Vol] 14.8 g/dL Normal 12.0-16.0 [facility] Comment on above: Performed By: #### DYLON GOMEZ #### [address] [address] [facility] Director: Jhon Rios MD #### CP, MG, CDP #### [facility] [address] [place] [address] [facility] Director: Jude Nieves DO Lymphocytes (Bld) [#/Vol] 2.90 10*3/uL Normal 1.2-5.2 [facility] Comment on above: Performed By: #### DYLON GOMEZ #### [address] [address] [facility] Director: Jhon Rios MD #### ELAN, MG, CDP #### [facility] [address] [place] [address] [facility] Director: Jude Nieves DO Lymphocytes/100 WBC (Bld) 36 % Normal 25-45 [facility] Comment on above: Performed By: #### DYLON GOMEZ #### [address] [address] [facility] Director: Jhon Rios MD #### MG ELAN, CDP #### [facility] [address] [place] [address] [facility] Director: Jude Nieves DO MCH (RBC) [Entitic mass] 30.8 pg Normal 26-34 [facility] Comment on above: Performed By: #### DYLON GOMEZ #### [address] [address] [facility] Director: Jhon Rios MD #### ELAN, MG, CDP #### [facility] [place] [address] [facility] Director: Jude Nieves DO MCHC (RBC) [Mass/Vol] 34.1 g/dL Normal 31-37 [facility] Comment on above: Performed By: #### DYLON GOMEZ #### [address] [address] [facility] Director: Jhon Rios MD #### ELAN, MG, CDP #### [facility] [address] [place] [address] [facility] Director: Jude Nieves DO MCV (RBC) [Entitic vol] 90.1 fL Normal 80-100 [facility] Comment on above: Performed By: #### DYLON GOMEZ #### [address] [address] [facility] Director: Jhon Rios MD #### MG ELAN, CDP #### [facility] [place] [address] [facility] Director: Jude Nieves DO Monocytes (Bld) [#/Vol] 0.50 10*3/uL Normal 0.1-1.3 [facility] Comment on above: Performed By: #### DYLON GOMEZ #### [address] [address] [facility] Director: Jhon Rios MD #### MG ELAN, CDP #### [facility] [place] [address] [facility] Director: Jude Nieves DO Monocytes/100 WBC (Bld) 6 % Normal 2-8 [facility] Comment on above: Performed By: #### DYLON GOMEZ #### [address] [address] [facility] Director: Jhon Rios MD #### ELAN, MG, CDP #### [facility] [address] [place] [address] [facility] Director: Jude Nieves DO Neutrophil (Seg) 56 % Normal 34-64 [facility] Comment on above: Performed By: #### DYLON GOMEZ #### [facility] [address] [place] [address] [facility] Director: Jhon Rios MD #### CP, MG, CDP #### [facility] [address] [place] [address] [facility] Director: Jude Nieves DO Platelet mean volume (Bld) [Entitic vol] 7.4 fL Normal 6.0-12.0 [facility] Comment on above: Performed By: #### DYLON GOMEZ #### [id number] [place] [address] [facility] Director: Jhon Rios MD #### ELAN, MG, CDP #### [facility] [address] [place] [address] [facility] Director: Jude Nieves DO Platelets (Bld) [#/Vol] 279 10*3/uL Normal 150-450 [facility] Comment on above: Performed By: #### DYLON GOMEZ #### [address] [address] [facility] Director: Jhon Rios MD #### ELAN, MG, CDP #### [facility] [address] [place] [address] [facility] Director: Jude Nieves DO RBC (Bld) [#/Vol] 4.81 10*6/uL Normal 4.0-5.2 [facility] Comment on above: Performed By: #### DYLON GOMEZ #### [address] [address] [facility] Director: Jhon Rios MD #### CP, MG, CDP #### [facility] [address] [place] [address] [facility] Director: Jude Nieves DO WBC (Bld) [#/Vol] 8.1 10*3/uL Normal 4.5-13.5 [facility] Comment on above: Performed By: #### DYLON GOMEZ #### [address] [address] [facility] Director: Jhon Rios MD #### CP, MG, CDP #### [facility] [address] [place] [address] [facility] Director: Jude Nieves DO Abs.Imm.Granulocyte NOT REPORTED Normal 0.00-0.30 [facility] Comment on above: Performed By: #### DYLON GOMEZ #### [address] [address] [facility] Director: Jhon Rios MD #### CP, MG, CDP #### [facility] [address] [place] [address] [facility] Director: Jude Nieves DO Auto Diff Performed NOT REPORTED Normal [facility] Comment on above: Performed By: #### DYLON GOMEZ #### [address] [address] [facility] Director: Jhon Rios MD #### CP, MG, CDP #### [facility] [address] [place] [address] [facility] Director: Jude Nieves DO Immature Granulocyte NOT REPORTED Normal 0 [facility] Comment on above: Performed By: #### DYLON GOMEZ #### [address] [address] [facility] Director: Jhon Rios MD #### CP, MG, CDP #### [facility] [address] [place] [address] [facility] Director: Jude Nieves DO NRBC Automated NOT REPORTED Normal [facility] Comment on above: Performed By: #### K ARIADNE, LAMO #### [facility] [address] [place] [address] [facility] Director: Jhon Rios MD #### CP, MG, CDP #### [facility] [address] [place] [address] [facility] Director: Jude Nieves DO Platelet Estimate NOT REPORTED Normal [facility] Comment on above: Performed By: #### K ARIADNE, LAMO #### [address] [address] [facility] Director: Jhon Rios MD #### ELAN, MG, CDP #### [facility] [address] [place] [address] [place] [address] [facility] Director: Jude Nieves DO RBC morphology finding Nom (Bld) NOT REPORTED Normal [facility] Comment on above: Performed By: #### Cielo RON, LAMO #### [address] [address] [facility] Director: Jhon Rios MD #### CP, MG, CDP #### [facility] [address] [place] [address] [place] [address] [facility] Director: Jude Nieves DO WBC Morphology NOT REPORTED Normal [facility] Comment on above: Performed By: #### Cielo RON, LAMO #### [address] [address] [facility] Director: Jhon Rios MD #### CP, MG, CDP #### [facility] [address] [place] [address] [facility] Director: Jude Nieves DO Comp Metabolic Profon 2020 (cont.) Normal [facility] Comment on above: Result Comment: Aver age GFR for <20 years old not available. Chronic Kidney Disease: <60 mL/min/1.73sq m Kidney failure: <15 mL/min/1.73sq m eGFR calculated using average adult body mass. Additional eGFR calculator available at: http://www.[employer]/multiple_crcl_2012.htm Performed By: #### DYLON GOMEZ #### [address] [address] [facility] Director: Jhon Rios MD #### ELAN MG, CDP #### [facility] [address] [place] [address] [facility] Director: Jude Nieves DO Albumin [Mass/Vol] 4.6 g/dL Normal 3.5-5.2 [facility] Comment on above: Performed By: #### DYLON GOMEZ #### [address] [address] [facility] Director: Jhon Rios MD #### ELAN MG, CDP #### [facility] [address] [place] [address] [facility] Director: Jude Nieves DO Alkaline Phos 67 U/L Normal 35-104 [facility] Comment on above: Performed By: #### DYLON GOMEZ #### [address] [address] [facility] Director: Jhon Rios MD #### ELAN MG, CDP #### [facility] [address] [place] [address] [facility] Director: Jude Nieves DO ALT [Catalytic activity/Vol] 10 U/L Normal 5-33 [facility] Comment on above: Performed By: #### BERTO GOMEZO #### [address] [address] [facility] Director: Jhon Rios MD #### ELAN MG, CDP #### [facility] [address] [place] [address] [facility] Director: Jude Nieves DO Anion gap [Moles/Vol] 10 mmol/L Normal 9-17 [facility] Comment on above: Performed By: #### DYLON GOMEZ #### [address] [address] [facility] Director: Jhon Rios MD #### CP, MG, CDP #### [facility] [address] [place] [address] [facility] Director: Jude Nieves DO AST [Catalytic activity/Vol] 12 U/L Normal <32 [facility] Comment on above: Performed By: #### DYLON GOMEZ #### [address] [address] [facility] Director: Jhon Rios MD #### ELAN MG, CDP #### [facility] [address] [place] [address] [facility] Director: Jude Nieves DO Bilirubin [Mass/Vol] 0.40 mg/dL Normal 0.3-1.2 [facility] [place] Comment on above: Performed By: #### DYLON GOMEZ #### [address] [address] [facility] Director: Jhon Rios MD #### ELAN, MG, CDP #### [facility] [address] [place] [address] [facility] Director: Jude Nieves DO Calcium [Mass/Vol] 9.3 mg/dL Normal 8.6-10.4 [facility] Comment on above: Performed By: #### Cielo RON LAMO #### [address] [address] [facility] Director: Jhon Rios MD #### CP, MG, CDP #### [facility] [address] [facility] [place] [address] [facility] Director: Jude Nieves DO Chloride [Moles/Vol] 101 mmol/L Normal 98-107 [facility] [place] Comment on above: Performed By: #### BERTO GOMEZO #### [facility] [address] [place] [address] [facility] Director: Jhon Rios MD #### ELAN, MG, CDP #### [facility] [address] [place] [address] [facility] Director: Jude Nieves DO CO2 [Moles/Vol] 25 mmol/L Normal 20-31 [facility] Comment on above: Performed By: #### DYLON GOMEZ #### [address] [address] [facility] Director: Jhon Rios MD #### ELAN, , CDP #### [facility] [address] [place] [address] [facility] Director: Jude Nieves DO Creatinine [Mass/Vol] 0.71 mg/dL Normal 0.50-0.90 [facility] Comment on above: Performed By: #### DYLON GOMEZ #### [address] [address] [facility] Director: Jhon Rios MD #### ELAN, MG, CDP #### [facility] [address] [place] [address] [facility] Director: Jude Nieves DO GFR,non Amer Pediatric GFR requi res additional information. Refer to NKDEP website for Normal >60 [facility] Comment on above: Result Comment: calc ulator. Performed By: #### Cielo RON LAMO #### [address] [address] [facility] Director: Jhon Rios MD #### CP, MG, CDP #### [facility] [address] [place] [address] [facility] Director: Jude Nieves DO Glucose [Mass/Vol] 90 mg/dL Normal 70-99 [facility] Comment on above: Performed By: #### DYLON GOMEZ #### [address] [address] [facility] Director: Jhon Rios MD #### CP, MG, CDP #### [facility] [address] [place] [address] [facility] Director: Jude Nieves DO Potassium [Moles/Vol] 3.8 mmol/L Normal 3.7-5.3 [facility] Comment on above: Performed By: #### DYLON GOMEZ #### [address] [address] [facility] Director: Jhon Rios MD #### ELAN, MG, CDP #### [facility] [address] [place] [address] [facility] Director: Jude Nieves DO Protein [Mass/Vol] 7.8 g/dL Normal 6.4-8.3 [facility] Comment on above: Performed By: #### DYLON GOMEZ #### [address] [address] [facility] Director: Jhon Rios MD #### CP, MG, CDP #### [facility] [place] [address] [facility] Director: Jude Nieves DO Sodium [Moles/Vol] 136 mmol/L Normal 135-144 [facility] Comment on above: Performed By: #### DYLON GOMEZ #### [address] [address] [facility] Director: Jhon Rios MD #### CP, MG, CDP #### [facility] [address] [place] [address] [facility] Director: Jude Nieves DO Urea nitrogen [Mass/Vol] 11 mg/dL Normal 6-20 [facility] Comment on above: Performed By: #### DYLON GOMEZ #### [address] [address] [facility] Director: Jhon Rios MD #### CP, MG, CDP #### [facility] [address] [place] [address] [facility] Director: Jude Nieves DO Albumin/Glob Ratio NOT REPORTED Normal 1.0-2.5 [facility] Comment on above: Performed By: #### DYLON GOMEZ #### [address] [address] [facility] Director: Jhon Rios MD #### CP, MG, CDP #### [facility] [address] [place] [address] [facility] Director: Jude Nieves DO BUN/CRE Ratio NOT REPORTED Normal 9-20 [facility] Comment on above: Performed By: #### DYLON GOMEZ #### [address] [address] [facility] Director: Jhon Rios MD #### CP, MG, CDP #### [facility] [address] [place] [address] [facility] Director: Jude Nieves DO GFR, Amer NOT REPORTED Normal >60 [facility] Comment on above: Performed By: #### BERTO GOMEZO #### [address] [address] [facility] Director: Jhon Rios MD #### CP, MG, CDP #### [facility] [address] [place] [address] [facility] Director: Jude Nieves DO Staging: NOT REPORTED Normal [facility] Comment on above: Performed By: #### K BERTO RONO #### [facility] [address] [place] [address] [facility] Director: Jhon Rios MD #### CP, MG, CDP #### [facility] [address] [place] [address] [facility] Director: Jude Nieves DO HCG, ,Urineon 03-23 Beta HCG ( test) Ql (U) Negative Normal NEG [facility] Comment on above: Result Comment: Spec imens with hCG levels near the threshold of the test (25 mIU/mL) may give a negative or indeterminate result. In such cases, another test should be performed with a new specimen in 48-72 hours. If early is suspected clinically in this setting, correlation with quantitative serum b-hCG level is suggested. Performed By: #### U HCG #### [facility] [address] [place] [address] [facility] Director: Jude Nieves DO Magnesiumon Magnesium [Mass/Vol] 2.2 mg/dL Normal 1.7-2.2 [facility] [place] Comment on above: Performed By: #### K DYLON RON #### [facility] [address] [place] [address] [facility] Director: Jhon Rios MD #### CP, MG, CDP #### [facility] [address] [place] [address] [facility] Director: Jude Nieves DO CONSULTATIONon 12-05-[address] [address] CONSULTATION PATIENT NAME: KARIS KOVACS : 2000 MED REC NO: [id number] ROOM: 0624 ACCOUNT NO: [id number] ADMIT DATE: 07/17/2017 PROVIDER: Nahun Sanchez CONSULT DATE: 07/17/2017 CHIEF COMPLAINT: Seizures versus pseudoseizures. HISTORY OF PRESENT ILLNESS: Thank you for this neurology consult. 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 She was at her uncle's house, started to have generalized shaking. There was no bladder or bowel incontinence. This is a patient who recently relocated from [place]. The patient has had normal EEGs in the past, was declared as having non-epileptic seizures. The patient is reported to have a neurologist who had counseled her on Lexapro and Xanax. The patient reported to the RN that she identifies as male. The patient was taken to [place] ED, where she tested positive for THC. [...] grandmother. She tested positive for THC at [facility]. REVIEW OF SYSTEMS: No weight gain [...] did not add any antiepileptic medications. NAHUN Espinosa VINI MERLYN/V_SSNCK_I Doc#: [id number] CC: [facility] Vital Signs Date Time Vital Sign Value Performing Clinician Facility 12-06-2024 13:19-0400 Body height 157.5 cm Caleb Easton MD Work Phone: [facility] 12-06-2024 13:19-0400 Body mass index (BMI) [Ratio] 18.11 kg/m2 Caleb Easton MD Work Phone: [facility] 12-06-2024 13:19-0400 Body weight 44.91 kg Caleb Easton MD Work Phone: [facility] 12-06-2024 13:19-0400 Diastolic blood pressure 75 mm[Hg] Caleb Easton MD Work Phone: [facility] 12-06-2024 13:19-0400 Heart rate 82 /min Caleb Easton MD Work Phone: [facility] 12-06-2024 13:19-0400 Systolic blood pressure 118 mm[Hg] Caleb Easton MD Work Phone: [facility] 10-15-2024 15:00-0400 Diastolic blood pressure 67 mm[Hg] Imagga DO Work Phone: [facility] 10-15-2024 15:00-0400 Heart rate 81 /min Imagga DO Work Phone: [facility] 10-15-2024 15:00-0400 Respiratory rate 16 /min Imagga DO Work Phone: [facility] 10-15-2024 15:00-0400 SaO2% (BldA) [Mass fraction] 100 % Imagga DO Work Phone: [facility] 10-15-2024 15:00-0400 Systolic blood pressure 115 mm[Hg] Kavin House DO Work Phone: [facility] 10-15-2024 12:23-0400 Body height 157.48 cm Kavin House DO Work Phone: [facility] 10-15-2024 12:23-0400 Body weight 44.9 kg Kavin House DO Work Phone: [facility] 09-27-2024 13:55-0400 Body height 157.48 cm [facility] 09-27-2024 13:55-0400 Body mass index (BMI) [Ratio] 18.1 kg/m2 [facility] 09-27-2024 13:55-0400 Body weight 44.9 kg [facility] 09-27-2024 13:55-0400 Diastolic blood pressure 72 mm[Hg] [facility] 09-27-2024 13:55-0400 Heart rate 80 /min [facility] 09-27-2024 13:55-0400 Systolic blood pressure 127 mm[Hg] [facility] 09-03-2024 14:13-0400 Body height 157.5 cm Debbie Mckeon MD Work Phone: [facility] 09-03-2024 14:13-0400 Body mass index (BMI) [Ratio] 17.74 kg/m2 Debbie Mckeon MD Work Phone: [facility] 09-03-2024 14:13-0400 Body weight 44 kg Debbie Mckeon MD Work Phone: [facility] 09-03-2024 14:13-0400 Diastolic blood pressure 74 mm[Hg] Debbie Mckeon MD Work Phone: [facility] 09-03-2024 14:13-0400 Heart rate 77 /min Debbie Mckeon MD Work Phone: [facility] 09-03-2024 14:13-0400 Systolic blood pressure 116 mm[Hg] Debbie Mckeon MD Work Phone: [facility] 08-16-2024 11:38-0500 Body height 157.5 cm Karendelaney Neely LABORATORY MONITOR-CNM Work Phone: [facility] 08-16-2024 11:38-0500 Body mass index (BMI) [Ratio] 17.74 kg/m2 Karendelaney Elenaley LABORATORY MONITOR-CNM Work Phone: [facility] 08-16-2024 11:38-0500 Body weight 44 kg Karendelaney Elenaley LABORATORY MONITOR-CNM Work Phone: [facility] 08-16-2024 11:38-0500 Diastolic blood pressure 80 mm[Hg] Karen Neely LABORATORY MONITOR-CNM Work Phone: [facility] 08-16-2024 11:38-0500 Systolic blood pressure 100 mm[Hg] Karen Elenaley LABORATORY MONITOR-CNM Work Phone: [facility] 07-18-2024 15:48-0500 Body mass index (BMI) [Ratio] 17.92 kg/m2 Gloria Zacarias RD Work Phone: [facility] 07-18-2024 15:48-0500 Body weight 44.[address] Work Phone: [facility] 06-29-2024 16:32-0500 Body height 157.5 cm Debbie Mckeon MD Work Phone: [facility] 06-29-2024 16:32-0500 Body mass index (BMI) [Ratio] 17.92 kg/m2 Debbie Mckeon MD Work Phone: [facility] 06-29-2024 16:32-0500 Body weight 44.45 kg Debbie Mckeon MD Work Phone: [facility] 06-29-2024 16:32-0500 Diastolic blood pressure 78 mm[Hg] Debbie Mckeon MD Work Phone: [facility] 06-29-2024 16:32-0500 Heart rate 63 /min Debbie Mckeon MD Work Phone: [facility] 06-29-2024 16:32-0500 Systolic blood pressure 112 mm[Hg] Debbie Mckeon MD Work Phone: [facility] 05-21-2024 14:11-0500 Body height 157.5 cm Caleb Easton MD Work Phone: [facility] 05-21-2024 14:11-0500 Body mass index (BMI) [Ratio] 17.92 kg/m2 Caleb Easton MD Work Phone: [facility] 05-21-2024 14:11-0500 Body weight 44.45 kg Caleb Easton MD Work Phone: [facility] 05-21-2024 14:11-0500 Diastolic blood pressure 54 mm[Hg] Caleb Easton MD Work Phone: [facility] 05-21-2024 14:11-0500 Systolic blood pressure 92 mm[Hg] Caleb Easton MD Work Phone: [facility] 04-16-2024 15:10-0400 Body height 157.5 cm Gale Bassett LABORATORY MONITOR.INDUSTRIAL CLEANING TECHNICIAN Work Phone: [facility] 04-16-2024 15:10-0400 Body mass index (BMI) [Ratio] 17.44 kg/m2 Gale Bassett LABORATORY MONITOR.INDUSTRIAL CLEANING TECHNICIAN Work Phone: [facility] 04-16-2024 15:10-0400 Body weight 43.25 kg Gale Bassett LABORATORY MONITOR.INDUSTRIAL CLEANING TECHNICIAN Work Phone: [facility] 04-16-2024 15:10-0400 Diastolic blood pressure 78 mm[Hg] Gale Bassett LABORATORY MONITOR.INDUSTRIAL CLEANING TECHNICIAN Work Phone: [facility] 04-16-2024 15:10-0400 Heart rate 83 /min Gale Bassett LABORATORY MONITOR.INDUSTRIAL CLEANING TECHNICIAN Work Phone: [facility] 04-16-2024 15:10-0400 Systolic blood pressure 120 mm[Hg] Gale Serjio ALONSON.INDUSTRIAL CLEANING TECHNICIAN Work Phone: [facility] 04-02-2024 10:48-0400 Body height 157.48 cm [facility] 04-02-2024 10:48-0400 Body mass index (BMI) [Ratio] 18 kg/m2 [facility] 04-02-2024 10:48-0400 Body weight 44.7 kg [facility] 04-02-2024 10:48-0400 Diastolic blood pressure 72 mm[Hg] [facility] 04-02-2024 10:48-0400 Heart rate 64 /min [facility] 04-02-2024 10:48-0400 Systolic blood pressure 112 mm[Hg] [facility] 02-16-2024 10:44-0400 Body height 157.5 cm Caleb Easton MD Work Phone: [facility] 02-16-2024 10:44-0400 Body mass index (BMI) [Ratio] 18.11 kg/m2 Caleb Easton MD Work Phone: [facility] 02-16-2024 10:44-0400 Body weight 44.91 kg Caleb Easton MD Work Phone: [facility] 12-28-2023 13:07-0400 Body height 157.5 cm Jaja Rice LABORATORY MONITOR-INDUSTRIAL CLEANING TECHNICIAN Work Phone: [facility] 12-28-2023 13:07-0400 Body mass index (BMI) [Ratio] 17.19 kg/m2 Jaja Rice LABORATORY MONITOR-INDUSTRIAL CLEANING TECHNICIAN Work Phone: [facility] 12-28-2023 13:07-0400 Body weight 42.64 kg Jaja Rice LABORATORY MONITOR-INDUSTRIAL CLEANING TECHNICIAN Work Phone: [facility] 12-28-2023 13:07-0400 Diastolic blood pressure 78 mm[Hg] Jaja Rice LABORATORY MONITOR-INDUSTRIAL CLEANING TECHNICIAN Work Phone: [facility] 12-28-2023 13:07-0400 Heart rate 102 /min Jaja BriceñoCe LABORATORY MONITOR-INDUSTRIAL CLEANING TECHNICIAN Work Phone: [facility] 12-28-2023 13:07-0400 Systolic blood pressure 116 mm[Hg] Jaja BriceñoCe LABORATORY MONITOR-INDUSTRIAL CLEANING TECHNICIAN Work Phone: [facility] 12-01-2023 20:12-0400 Heart rate 97 /min Aman Tapia MD Work Phone: [email or web address] 12-01-2023 20:12-0400 Respiratory rate 11 /min Aman Tapia MD Work Phone: [facility] 12-01-2023 20:12-0400 SaO2% (BldA) [Mass fraction] 99 % Aman Tapia MD Work Phone: [email or web address] 12-01-2023 18:00-0400 Diastolic blood pressure 64 mm[Hg] Aman Tapia MD Work Phone: [email or web address] 12-01-2023 18:00-0400 Systolic blood pressure 104 mm[Hg] Aman Tapia MD Work Phone: [facility] [employer] 12-01-2023 16:22-0400 Body temperature 97.9 [degF] Aman Tapia MD Work Phone: [email or web address] 12-01-2023 16:19-0400 Body height 157.5 cm Aman Tapia MD Work Phone: [email or web address] 12-01-2023 16:19-0400 Body mass index (BMI) [Ratio] 17.19 kg/m2 Aman Tapia MD Work Phone: [email or web address] 12-01-2023 16:19-0400 Body weight 42.64 kg Aman Tapia MD Work Phone: [email or web address] 11-15-2023 12:53-0400 Body height 157.5 cm Jajalaureano Rice LABORATORY MONITOR-INDUSTRIAL CLEANING TECHNICIAN Work Phone: [facility] 11-15-2023 12:53-0400 Body mass index (BMI) [Ratio] 18.66 kg/m2 Jaja Rice APRN-INDUSTRIAL CLEANING TECHNICIAN Work Phone: [facility] 11-15-2023 12:53-0400 Body weight 46.27 kg Jaja Rice LABORATORY MONITOR-INDUSTRIAL CLEANING TECHNICIAN Work Phone: [facility] 11-15-2023 12:53-0400 Diastolic blood pressure 79 mm[Hg] Jaja Rice LABORATORY MONITOR-INDUSTRIAL CLEANING TECHNICIAN Work Phone: [facility] 11-15-2023 12:53-0400 Heart rate 64 /min Jaja Rice LABORATORY MONITOR-INDUSTRIAL CLEANING TECHNICIAN Work Phone: [facility] 11-15-2023 12:53-0400 Systolic blood pressure 121 mm[Hg] Jaja Rice APRN-INDUSTRIAL CLEANING TECHNICIAN Work Phone: [facility] 10-10-2023 10:03-0400 Body height 159 cm Bph 2 [facility] 10-10-2023 10:03-0400 Body mass index (BMI) [Ratio] 18.31 kg/m2 Bph 2 [facility] 10-10-2023 10:03-0400 Body temperature 96.4 [degF] Bph 2 [facility] 10-10-2023 10:03-0400 Body weight 46.3 kg Bph 2 [facility] 10-10-2023 10:03-0400 Diastolic blood pressure 73 mm[Hg] Bph 2 [facility] 10-10-2023 10:03-0400 Heart rate 61 /min Bph 2 [facility] 10-10-2023 10:03-0400 Respiratory rate 16 /min Bph 2 [facility] 10-10-2023 10:03-0400 SaO2% (BldA) [Mass fraction] 100 % Bph 2 [facility] 10-10-2023 10:03-0400 Systolic blood pressure 111 mm[Hg] Bph 2 [facility] 09-20-2023 11:27-0400 Body height 154.9 cm Jaja Rice LABORATORY MONITOR-INDUSTRIAL CLEANING TECHNICIAN Work Phone: [facility] 09-20-2023 11:27-0400 Body mass index (BMI) [Ratio] 19.84 kg/m2 Jaja Rice LABORATORY MONITOR-INDUSTRIAL CLEANING TECHNICIAN Work Phone: [facility] 09-20-2023 11:27-0400 Body weight 47.63 kg Jaja Rice LABORATORY MONITOR-INDUSTRIAL CLEANING TECHNICIAN Work Phone: [facility] 09-20-2023 11:27-0400 Diastolic blood pressure 76 mm[Hg] Jaja Rice LABORATORY MONITOR-INDUSTRIAL CLEANING TECHNICIAN Work Phone: [facility] 09-20-2023 11:27-0400 Heart rate 74 /min Jaja Rice LABORATORY MONITOR-INDUSTRIAL CLEANING TECHNICIAN Work Phone: [facility] 09-20-2023 11:27-0400 Systolic blood pressure 108 mm[Hg] Jaja Rice LABORATORY MONITOR-INDUSTRIAL CLEANING TECHNICIAN Work Phone: [facility] 09-19-2023 15:05-0400 Body height 154.9 cm Nette Lackey MD Work Phone: [facility] 09-19-2023 15:05-0400 Body mass index (BMI) [Ratio] 19.88 kg/m2 Nette Lackey MD Work Phone: [facility] 09-19-2023 15:05-0400 Body weight 47.72 kg Nette Lackey MD Work Phone: [facility] 09-19-2023 15:05-0400 Diastolic blood pressure 62 mm[Hg] Nette Lackey MD Work Phone: [facility] 09-19-2023 15:05-0400 Systolic blood pressure 104 mm[Hg] Nette Lackey MD Work Phone: [facility] 09-13-2023 10:06-0400 Body height 154.9 cm Nette Lackey MD Work Phone: [facility] 09-13-2023 10:06-0400 Body mass index (BMI) [Ratio] 20.97 kg/m2 Nette Lackey MD Work Phone: [facility] 09-13-2023 10:06-0400 Body weight 50.35 kg Nette Lackey MD Work Phone: [facility] 09-13-2023 10:06-0400 Diastolic blood pressure 78 mm[Hg] Nette Lackey MD Work Phone: [facility] 09-13-2023 10:06-0400 Systolic blood pressure 110 mm[Hg] Nette Lackey MD Work Phone: [facility] 09-07-2023 13:00-0400 Body height 154.9 cm Enriqueta OSMAN Work Phone: [facility] 09-07-2023 13:00-0400 Body mass index (BMI) [Ratio] 19.84 kg/m2 Enriqueta OSMAN Work Phone: [facility] 09-07-2023 13:00-0400 Body weight 47.63 kg Enriqueta OSMAN Work Phone: [facility] 09-07-2023 13:00-0400 Diastolic blood pressure 81 mm[Hg] Enriqueta OSMAN Work Phone: [facility] 09-07-2023 13:00-0400 Heart rate 73 /min Enriqueta OSMAN Work Phone: [facility] 09-07-2023 13:00-0400 Systolic blood pressure 117 mm[Hg] Enriqueta OSMAN Work Phone: [facility] 08-10-2023 12:52-0500 Body height 154.9 cm Lavonne Thomas NP Work Phone: [facility] 08-10-2023 12:52-0500 Body mass index (BMI) [Ratio] 20.03 kg/m2 Lavonne Thomas SAILMAKER Work Phone: [facility] 08-10-2023 12:52-0500 Body weight 48.08 kg Lavonne Thomas SAILMAKER Work Phone: [facility] 08-10-2023 12:52-0500 Diastolic blood pressure 70 mm[Hg] Lavonne Thomas SAILMAKER Work Phone: [facility] 08-10-2023 12:52-0500 Systolic blood pressure 120 mm[Hg] Lavonne Thomas SAILMAKER Work Phone: [facility] 07-07-2023 11:19-0500 Body height 154.9 cm Enriqueta OSMAN Work Phone: [facility] 07-07-2023 11:19-0500 Diastolic blood pressure 59 mm[Hg] Enriqueta OSMAN Work Phone: [facility] 07-07-2023 11:19-0500 Heart rate 65 /min Enriqueta OSMAN Work Phone: [facility] 07-07-2023 11:19-0500 Systolic blood pressure 100 mm[Hg] Enriqueta Tse PA Work Phone: [facility] 05-12-2023 17:00-0500 Diastolic blood pressure 56 mm[Hg] DO Kavin House Work Phone: [facility] 05-12-2023 17:00-0500 Heart rate 68 /min DO Kavin House Work Phone: [facility] 05-12-2023 17:00-0500 Respiratory rate 16 /min DO Kavin House Work Phone: [facility] 05-12-2023 17:00-0500 SaO2% (BldA) [Mass fraction] 98 % DO Kavin House Work Phone: [facility] 05-12-2023 17:00-0500 Systolic blood pressure 107 mm[Hg] DO Kavin House Work Phone: [facility] 05-12-2023 13:28-0500 Body height 154.94 cm DO Kavin House Work Phone: [facility] 05-12-2023 13:28-0500 Body weight 48.1 kg DO Kavin House Work Phone: [facility] 05-12-2023 13:27-0500 Body temperature 97.6 [degF] DO Kavin House Work Phone: [facility] 04-12-2023 14:17-0400 Diastolic blood pressure 80 mm[Hg] DO Kavin House Work Phone: [facility] 04-12-2023 14:17-0400 Heart rate 77 /min DO Kavin House Work Phone: [facility] 04-12-2023 14:17-0400 Respiratory rate 16 /min DO Kavin House Work Phone: [facility] 04-12-2023 14:17-0400 SaO2% (BldA) [Mass fraction] 99 % DO Kavin House Work Phone: [facility] 04-12-2023 14:17-0400 Systolic blood pressure 121 mm[Hg] DO Kavin House Work Phone: [facility] 04-12-2023 12:17-0400 Body height 154.94 cm DO Kavin House Work Phone: [facility] 04-12-2023 12:17-0400 Body temperature 97.8 [degF] DO Kavin House Work Phone: [facility] 04-12-2023 12:17-0400 Body weight 49 kg DO Kavin House Work Phone: [facility] 03-23-2023 15:14-0400 Body temperature 98.3 [degF] DO Kavin House Work Phone: [facility] 03-23-2023 15:14-0400 Diastolic blood pressure 68 mm[Hg] DO Kavin House Work Phone: [facility] 03-23-2023 15:14-0400 Heart rate 66 /min DO Kavin House Work Phone: [facility] 03-23-2023 15:14-0400 Respiratory rate 17 /min DO Kavin House Work Phone: [facility] 03-23-2023 15:14-0400 SaO2% (BldA) [Mass fraction] 100 % DO Kavin House Work Phone: [facility] 03-23-2023 15:14-0400 Systolic blood pressure 115 mm[Hg] DO Kavin House Work Phone: [facility] 03-23-2023 12:38-0400 Body height 154.94 cm DO Kavin House Work Phone: [facility] 03-23-2023 12:38-0400 Body weight 48.7 kg DO Kavin House Work Phone: [facility] 03-11-2023 15:14-0400 Diastolic blood pressure 55 mm[Hg] DO Kavin House Work Phone: [facility] 03-11-2023 15:14-0400 Heart rate 80 /min DO Kavin House Work Phone: [facility] 03-11-2023 15:14-0400 Respiratory rate 18 /min DO Kavin House Work Phone: [facility] 03-11-2023 15:14-0400 SaO2% (BldA) [Mass fraction] 100 % DO Kavin House Work Phone: [facility] 03-11-2023 15:14-0400 Systolic blood pressure 95 mm[Hg] DO Kavin House Work Phone: [facility] 03-11-2023 12:02-0400 Body height 162.56 cm DO Kavin House Work Phone: [facility] 03-11-2023 12:02-0400 Body temperature 98.8 [degF] DO Kavin House Work Phone: [facility] 03-11-2023 12:02-0400 Body weight 42.18 kg DO Kavin House Work Phone: [facility] 02-06-2023 18:33-0400 Diastolic blood pressure 69 mm[Hg] Stefanie [facility]tez MD [facility] [employer] 02-06-2023 18:33-0400 Heart rate 88 /min Stefanie [facility]tez [facility] [employer] 02-06-2023 18:33-0400 Respiratory rate 26 /min Stefanie Ortez MD [facility] [employer] 02-06-2023 18:33-0400 SaO2% (BldA) [Mass fraction] 99 % Stefanie [facility]tez [facility] [employer] 02-06-2023 18:33-0400 Systolic blood pressure 111 mm[Hg] Stefanie Ortez MD [facility] [employer] 02-06-2023 17:04-0400 Body height 154.9 cm Stefanie [facility]tez [facility] [employer] 02-06-2023 17:04-0400 Body mass index (BMI) [Ratio] 18.33 kg/m2 Stefanie Ortez MD [facility] [employer] 02-06-2023 17:04-0400 Body temperature 98.8 [degF] Stefanie Ortez MD [facility] [employer] 02-06-2023 17:04-0400 Body weight 44 kg Stefanie Ortez MD [facility] [employer] 09-13-2022 12:30-0400 Body temperature 97 [degF] DO Kavin House Work Phone: [facility] 09-13-2022 12:00-0400 Diastolic blood pressure 76 mm[Hg] DO Kavin House Work Phone: [facility] 09-13-2022 12:00-0400 Heart rate 68 /min DO Kavin House Work Phone: [facility] 09-13-2022 12:00-0400 Respiratory rate 20 /min DO Kavin House Work Phone: [facility] 09-13-2022 12:00-0400 SaO2% (BldA) [Mass fraction] 100 % DO Kavin House Work Phone: [facility] 09-13-2022 12:00-0400 Systolic blood pressure 114 mm[Hg] DO Kavin House Work Phone: [facility] 09-13-2022 10:41-0400 Body height 154.94 cm DO Kavin House Work Phone: [facility] 09-13-2022 10:41-0400 Body weight 46.9 kg DO Kavin House Work Phone: [facility] 08-30-2022 12:23-0500 Diastolic blood pressure 72 mm[Hg] DO Kavin House Work Phone: [facility] 08-30-2022 12:23-0500 Heart rate 82 /min DO Kavin House Work Phone: [facility] 08-30-2022 12:23-0500 Respiratory rate 16 /min DO Kavin House Work Phone: [facility] 08-30-2022 12:23-0500 SaO2% (BldA) [Mass fraction] 100 % DO Kavin House Work Phone: [facility] 08-30-2022 12:23-0500 Systolic blood pressure 114 mm[Hg] DO Kavin House Work Phone: [facility] 08-30-2022 10:51-0500 Body height 154.94 cm DO Kavin House Work Phone: [facility] 08-30-2022 10:51-0500 Body weight 50.1 kg DO Kavin House Work Phone: [facility] 08-30-2022 10:50-0500 Body temperature 98.5 [degF] DO Kavin House Work Phone: [facility] 08-18-2022 13:04-0500 Diastolic blood pressure 62 mm[Hg] DO Kavin House Work Phone: [facility] 08-18-2022 13:04-0500 Heart rate 68 /min DO Kavin House Work Phone: [facility] 08-18-2022 13:04-0500 Respiratory rate 18 /min DO Kavin House Work Phone: [facility] 08-18-2022 13:04-0500 SaO2% (BldA) [Mass fraction] 100 % DO Kavin House Work Phone: [facility] 08-18-2022 13:04-0500 Systolic blood pressure 95 mm[Hg] DO Kavin House Work Phone: [facility] 08-18-2022 11:09-0500 Body height 154.94 cm DO Kavin House Work Phone: [facility] 08-18-2022 11:09-0500 Body temperature 97.8 [degF] DO Kavin House Work Phone: [facility] 08-18-2022 11:09-0500 Body weight 46.6 kg DO Kavin House Work Phone: [facility] 07-27-2022 13:11-0500 Body temperature 96.9 [degF] DO [place] Work Phone: [facility] 07-27-2022 12:58-0500 Diastolic blood pressure 67 mm[Hg] DO [place] Work Phone: [facility] 07-27-2022 12:58-0500 Heart rate 52 /min DO [place] Work Phone: [facility] 07-27-2022 12:58-0500 Respiratory rate 18 /min DO [place] Work Phone: [facility] 07-27-2022 12:58-0500 SaO2% (BldA) [Mass fraction] 100 % DO [place] Work Phone: [facility] 07-27-2022 12:58-0500 Systolic blood pressure 111 mm[Hg] DO [place] Work Phone: [facility] 07-27-2022 12:04-0500 Body height 154.94 cm DO [place] Work Phone: [facility] 07-27-2022 12:04-0500 Body weight 47.2 kg DO [place] Work Phone: [facility] 05-18-2022 12:29-0500 Body temperature 97.8 [degF] DO Tommy Jessi Work Phone: [facility] 05-18-2022 12:29-0500 Diastolic blood pressure 63 mm[Hg] DO Tommy Jessi Work Phone: [facility] 05-18-2022 12:29-0500 Heart rate 63 /min DO Tommy Jessi Work Phone: [facility] 05-18-2022 12:29-0500 Respiratory rate 18 /min DO Tommy Jessi Work Phone: [facility] 05-18-2022 12:29-0500 SaO2% (BldA) [Mass fraction] 100 % DO Tommy Jessi Work Phone: [facility] 05-18-2022 12:29-0500 Systolic blood pressure 103 mm[Hg] DO Tommy Jessi Work Phone: [facility] 05-18-2022 11:02-0500 Body height 175.26 cm DO Tommy Jessi Work Phone: [facility] 05-18-2022 11:02-0500 Body weight 48.08 kg DO Tommy Jessi Work Phone: [facility] 04-22-2022 13:59-0400 Diastolic blood pressure 74 mm[Hg] DO Tommy Jessi Work Phone: [facility] 04-22-2022 13:59-0400 Heart rate 59 /min DO Tommy Jessi Work Phone: [facility] 04-22-2022 13:59-0400 Respiratory rate 16 /min DO Tommy Jessi Work Phone: [facility] 04-22-2022 13:59-0400 SaO2% (BldA) [Mass fraction] 100 % DO Tommy Jessi Work Phone: [facility] 04-22-2022 13:59-0400 Systolic blood pressure 116 mm[Hg] DO Tommy Jessi Work Phone: [facility] 04-22-2022 10:58-0400 Body height 154.94 cm DO Tommy Jessi Work Phone: [facility] 04-22-2022 10:58-0400 Body temperature 97.1 [degF] DO Tommy Jessi Work Phone: [facility] 04-22-2022 10:58-0400 Body weight 49 kg DO Tommy Jessi Work Phone: [facility] 04-05-2022 13:19-0400 Diastolic blood pressure 74 mm[Hg] DO Tommy Jessi Work Phone: [facility] 04-05-2022 13:19-0400 Heart rate 74 /min DO Tommy Jessi Work Phone: [facility] 04-05-2022 13:19-0400 Respiratory rate 16 /min DO Tommy Jessi Work Phone: [facility] 04-05-2022 13:19-0400 SaO2% (BldA) [Mass fraction] 99 % DO Tommy Jessi Work Phone: [facility] 04-05-2022 13:19-0400 Systolic blood pressure 111 mm[Hg] DO Tommy Jessi Work Phone: [facility] 04-05-2022 10:33-0400 Body height 154.94 cm DO Tommy Jessi Work Phone: [facility] 04-05-2022 10:33-0400 Body temperature 97.1 [degF] DO Tommy Jessi Work Phone: [facility] 04-05-2022 10:33-0400 Body weight 51.9 kg DO Tommy Jessi Work Phone: [facility] 03-30-2022 12:51-0400 Diastolic blood pressure 71 mm[Hg] DO Tommy Jessi Work Phone: [facility] 03-30-2022 12:51-0400 Heart rate 81 /min DO Tommy Jessi Work Phone: [facility] 03-30-2022 12:51-0400 Respiratory rate 16 /min DO Tommy Jessi Work Phone: [facility] 03-30-2022 12:51-0400 SaO2% (BldA) [Mass fraction] 98 % DO Tommy Jessi Work Phone: [facility] 03-30-2022 12:51-0400 Systolic blood pressure 113 mm[Hg] DO Tommy Jessi Work Phone: [facility] 03-30-2022 12:07-0400 Body height 154.94 cm DO Tommy Jessi Work Phone: [facility] 03-30-2022 12:07-0400 Body weight 48.08 kg DO Tommy Jessi Work Phone: [facility] 03-30-2022 11:03-0400 Body temperature 97.7 [degF] DO Tommy Jessi Work Phone: [facility] 03-19-2022 12:02-0400 Diastolic blood pressure 66 mm[Hg] DO Tommy Jessi Work Phone: [facility] 03-19-2022 12:02-0400 Heart rate 61 /min DO Tommy Jessi Work Phone: [facility] 03-19-2022 12:02-0400 Respiratory rate 18 /min DO Tommy Jessi Work Phone: [facility] 03-19-2022 12:02-0400 SaO2% (BldA) [Mass fraction] 100 % DO Tommy Jessi Work Phone: [facility] 03-19-2022 12:02-0400 Systolic blood pressure 125 mm[Hg] DO Tommy Jessi Work Phone: [facility] 03-19-2022 11:03-0400 Body height 154.94 cm DO Tommy Jessi Work Phone: [facility] 03-19-2022 11:03-0400 Body temperature 97.3 [degF] DO Tommy Jessi Work Phone: [facility] 03-19-2022 11:03-0400 Body weight 53.5 kg DO Tommy Jessi Work Phone: [facility] 02-25-2022 12:00-0400 Diastolic blood pressure 63 mm[Hg] DO Tommy Jessi Work Phone: [facility] 02-25-2022 12:00-0400 Heart rate 71 /min DO Tommy Jessi Work Phone: [facility] 02-25-2022 12:00-0400 Respiratory rate 14 /min DO Tommy Jessi Work Phone: [facility] 02-25-2022 12:00-0400 SaO2% (BldA) [Mass fraction] 99 % DO Tommy Jessi Work Phone: [facility] 02-25-2022 12:00-0400 Systolic blood pressure 112 mm[Hg] DO Tommy Jessi Work Phone: [facility] 02-25-2022 11:07-0400 Body height 162.56 cm DO Tommy Jessi Work Phone: [facility] 02-25-2022 11:07-0400 Body temperature 98.4 [degF] DO Tommy Jessi Work Phone: [facility] 02-25-2022 11:07-0400 Body weight 50.2 kg DO Tommy Jessi Work Phone: [facility] 09-28-2021 13:35-0400 Diastolic blood pressure 73 mm[Hg] DO Kavin House Work Phone: [facility] 09-28-2021 13:35-0400 Heart rate 71 /min DO Kavin House Work Phone: [facility] 09-28-2021 13:35-0400 Respiratory rate 18 /min DO Kavin House Work Phone: [facility] 09-28-2021 13:35-0400 SaO2% (BldA) [Mass fraction] 100 % DO Kavin House Work Phone: [facility] 09-28-2021 13:35-0400 Systolic blood pressure 113 mm[Hg] DO Kavin House Work Phone: [facility] 09-28-2021 11:40-0400 Body height 154.94 cm DO Kavin House Work Phone: [facility] 09-28-2021 11:40-0400 Body mass index (BMI) [Ratio] 19.5 kg/m2 DO Kavin House Work Phone: [facility] 09-28-2021 11:40-0400 Body temperature 98 [degF] DO Kavin House Work Phone: [facility] 09-28-2021 11:40-0400 Body weight 47 kg DO Kavin House Work Phone: [facility] 09-09-2021 13:05-0400 Diastolic blood pressure 65 mm[Hg] DO Kavin House Work Phone: [facility] 09-09-2021 13:05-0400 Heart rate 81 /min DO Kavin House Work Phone: [facility] 09-09-2021 13:05-0400 Respiratory rate 20 /min DO Kavin House Work Phone: [facility] 09-09-2021 13:05-0400 SaO2% (BldA) [Mass fraction] 100 % DO Kavin House Work Phone: [facility] 09-09-2021 13:05-0400 Systolic blood pressure 107 mm[Hg] DO Kavin House Work Phone: [facility] 09-09-2021 11:12-0400 Body height 154.94 cm DO Kavin House Work Phone: [facility] 09-09-2021 11:12-0400 Body mass index (BMI) [Ratio] 19.5 kg/m2 DO Kavin House Work Phone: [facility] 09-09-2021 11:12-0400 Body weight 47 kg DO Kavin House Work Phone: [facility] 09-09-2021 11:05-0400 Body temperature 97.8 [degF] DO Kavin House Work Phone: [facility] 08-12-2021 14:30-0500 Diastolic blood pressure 60 mm[Hg] DO Kavin House Work Phone: [facility] 08-12-2021 14:30-0500 Heart rate 68 /min DO Kavin House Work Phone: [facility] 08-12-2021 14:30-0500 Respiratory rate 21 /min DO Kavin House Work Phone: [facility] 08-12-2021 14:30-0500 SaO2% (BldA) [Mass fraction] 99 % DO Kavin House Work Phone: [facility] 08-12-2021 14:30-0500 Systolic blood pressure 102 mm[Hg] DO Kavin House Work Phone: [facility] 08-12-2021 10:45-0500 Body height 154.94 cm DO Kavin House Work Phone: [facility] 08-12-2021 10:45-0500 Body mass index (BMI) [Ratio] 43.7 kg/m2 DO Kavin House Work Phone: [facility] 08-12-2021 10:45-0500 Body weight 105.1 kg DO Kavin House Work Phone: [facility] 08-12-2021 10:35-0500 Body temperature 97.5 [degF] DO Kavin House Work Phone: [facility] 08-07-2021 12:50-0500 Diastolic blood pressure 74 mm[Hg] DO Kavin House Work Phone: [facility] 08-07-2021 12:50-0500 Heart rate 91 /min DO Kavin House Work Phone: [facility] 08-07-2021 12:50-0500 Respiratory rate 16 /min DO Kavin House Work Phone: [facility] 08-07-2021 12:50-0500 SaO2% (BldA) [Mass fraction] 100 % DO Kavin House Work Phone: [facility] 08-07-2021 12:50-0500 Systolic blood pressure 107 mm[Hg] DO Kavin House Work Phone: [facility] 07-10-2021 12:55-0500 Diastolic blood pressure 72 mm[Hg] DO Kavin House Work Phone: [facility] 07-10-2021 12:55-0500 Heart rate 58 /min DO Kavin House Work Phone: [facility] 07-10-2021 12:55-0500 Respiratory rate 18 /min DO Kavin House Work Phone: [facility] 07-10-2021 12:55-0500 SaO2% (BldA) [Mass fraction] 100 % DO [facility] Work Phone: [facility] 07-10-2021 12:55-0500 Systolic blood pressure 110 mm[Hg] DO [facility] Work Phone: [facility] 07-10-2021 10:57-0500 Body height 154.94 cm DO [facility] Work Phone: [facility] 07-10-2021 10:57-0500 Body mass index (BMI) [Ratio] 20.5 kg/m2 DO [facility] Work Phone: [facility] 07-10-2021 10:57-0500 Body temperature 97.5 [degF] DO [facility] Work Phone: [facility] 07-10-2021 10:57-0500 Body weight 49.4 kg DO [facility] Work Phone: [facility] Encounters Encounter Date Encounter Type Care Provider Facility Start: 12-15-2024 End: 12-16-2024 Emergency department patient visit [facility] Start: 12-06-2024 End: 12-06-2024 [email or web address] Caleb Easton MD Work Phone: [facility] Start: 12-06-2024 End: 12-06-2024 [email or web address] Caleb Easton MD Work Phone: [facility] Start: 12-06-2024 End: 12-06-2024 Office outpatient visit 25 minutes Caleb Easton MD Work Phone: [facility] Comment on above: Psychogenic nonepile ptic seizure (Primary Dx); Migraine without aura and without status migrainosus, not intractable ; Chronic insomnia Start: 11-28-2024 [facility] Start: 11-28-2024 End: 11-28-2024 ambulatory [facility] Start: 11-20-2024 End: 11-20-2024 [facility] Start: 11-15-2024 ambulatory LAVONNE THOMAS [facility] Start: 11-09-2024 ambulatory [facility] Start: 11-01-2024 End: 11-01-2024 Patient encounter procedure Kavin House DO Work Phone: [facility] [place] Work Phone: Start: 11-01-2024 End: 11-01-2024 ambulatory Kavin House Facility:[facility] Start: 10-16-2024 End: 10-16-2024 ambulatory [facility] Start: 10-15-2024 Non-patient / Non-visit Mango s House DO Work Phone: [facility] Work Phone: Start: 10-15-2024 End: 10-15-2024 Admission to same day surgery center Kavin House DO Work Phone: [facility] Work Phone: Start: 10-15-2024 End: 10-15-2024 ambulatory Kavin House DO Work Phone: [facility] Work Phone: Start: 10-12-2024 End: 10-12-2024 Telephone encounter Lavonne Thomas LABORATORY MONITOR-INDUSTRIAL CLEANING TECHNICIAN Work Phone: [facility] [place] Comment on above: Sleep Lab (PSG) Start: 10-11-2024 End: 10-11-2024 Telephone encounter Orders Support User Transcribe [facility] [place] Start: 10-10-2024 End: 10-10-2024 Refill Lavonne Thomas SAILMAKER Work Phone: [facility] Comment on above: 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 Start: 10-08-2024 End: 10-08-2024 ambulatory NAHUN GONGORA Facility:[facility] Start: 10-08-2024 End: 10-08-2024 Patient encounter procedure Nahun Frankel Tamir OD Work Phone: Ophthalmology Comment on above: Type 2 diabetes corina itus without retinopathy (HCC) (Primary Dx); Vision changes; Myopia, bilateral Start: 10-02-2024 ambulatory [facility] Start: 09-27-2024 End: 09-27-2024 ambulatory [facility] Work Phone: Start: 09-27-2024 End: 09-27-2024 Patient encounter procedure [facility] Work Phone: Start: 09-06-2024 End: 09-06-2024 Bamboo flowsheet Lavonne Thomas SAILMAKER Work Phone: [facility] NEUR[facility] Start: 09-06-2024 End: 09-06-2024 Bamboo flowsheet Lavonne Thomas SAILMAKER Work Phone: [facility] Start: 09-04-2024 End: 09-04-2024 Patient encounter procedure Ainsley Graham MD Work Phone: [facility] Comment on above: Acne vulgaris (Prima ry Dx) Start: 09-03-2024 End: 09-03-2024 Office outpatient visit 10 minutes Debbie Mckeon MD [facility] Comment on above: Feeling of incomplet e bladder emptying (Primary Dx); Epilepsy, 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) Start: 09-03-2024 End: 09-03-2024 ambulatory DEBBIE MCKEON [facility] Start: 08-30-2024 ambulatory [facility] Start: 08-16-2024 End: 08-16-2024 Emergency department patient visit KAVIN FRENCH [facility] Start: 08-16-2024 End: 08-16-2024 ambulatory [facility] Start: 08-16-2024 End: 08-16-2024 Office outpatient visit 15 minutes [place] LABORATORY MONITOR-CNM Work Phone: [facility] Physicians Obstetrics/Gynecology Comment on above: Abnormal uterine ble eding (AUB) (Primary Dx) Start: 08-15-2024 Non-patient / Non-visit [facility] Work Phone: Start: 08-14-2024 End: 08-14-2024 Telephone encounter Caleb Easton MD Work Phone: [facility] Start: 08-09-2024 ambulatory DO KAVIN Nicole lity:[facility] Start: 08-08-2024 End: 08-08-2024 Telephone encounter Enriqueta Vaca [facility] Physicians Genito-Urinary Surgeons Comment on above: Dysuria (Primary Dx) Start: 08-08-2024 End: 08-08-2024 ambulatory CORNELIUS [facility] Start: 08-01-2024 End: 08-01-2024 Telephone encounter Gale Bassett APRN.INDUSTRIAL CLEANING TECHNICIAN Work Phone: Endocrinology Start: 07-30-2024 ambulatory [facility] Start: 07-26-2024 End: 07-26-2024 Bamboo flowsheet Ainsley Graham MD Work Phone: [facility] Start: 07-26-2024 End: 07-26-2024 Bamboo flowsheet Ainsley Graham MD Work Phone: [facility] Start: 07-26-2024 End: 07-26-2024 Office outpatient visit 25 minutes Ainsley Graham MD Work Phone: [facility] Comment on above: Acne vulgaris (Prima ry Dx) Start: 07-24-2024 End: 07-24-2024 Telephone encounter Caleb Easton MD Work Phone: [facility] 210 Comment on above: Med Refill Start: 07-20-2024 End: 07-20-2024 [facility] Start: 07-18-2024 End: 07-18-2024 ambulatory GLORIA ZACARIAS Facility:[facility] Start: 07-18-2024 End: 07-18-2024 Nutrition therapy Gloria Zacarias RD Work Phone: Diabetic Education [facility] Comment on above: Other specified diab etes mellitus with other specified complication, without long-term current use of insulin (HCC) (Primary Dx); Sensory food aversion; Abnormal weight loss; Mild protein-calorie malnutrition (HCC) Start: 07-18-2024 End: 07-18-2024 Telemedicine consultation with patient Gloria Zacarias RD Work Phone: Diabetic [facility] Start: 07-17-2024 End: 07-17-2024 Orders Only Enriqueta Vaca [facility] Genito-Urinary Surgeons Comment on above: Hematuria, unspecifi ed type (Primary Dx) Start: 07-08-2024 End: 07-08-2024 Telephone encounter Caleb Easton MD Work Phone: [facility] 210 Comment on above: 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/) Start: 07-08-2024 Non-patient / Non-visit [facility] Work Phone: Start: 07-06-2024 ambulatory [facility] Start: 07-04-2024 End: 07-04-2024 ambulatory KAVIN Krystian FRENCH [facility] Start: 07-03-2024 End: 07-03-2024 Refill Caleb Easton MD Work Phone: [facility] Comment on above: 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 Start: 06-29-2024 End: 06-29-2024 Office outpatient visit 15 minutes Debbie Mckeon MD Work Phone: [facility]inary Surgeons Comment on above: Right kidney stone ( Primary Dx); Epilepsy, 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) Start: 06-29-2024 End: 06-29-2024 ambulatory DEBBIE Downey [facility] Start: 06-22-2024 End: 06-22-2024 ambulatory [facility] Start: 06-21-2024 End: 06-22-2024 Refill Gale Bassett LABORATORY MONITOR.INDUSTRIAL CLEANING TECHNICIAN Work Phone: Endocrinology Comment on above: Refill Request Start: 06-18-2024 End: 06-18-2024 [facility] Gale Bassett LABORATORY MONITOR.INDUSTRIAL CLEANING TECHNICIAN Work Phone: Endocrinology Comment on above: Hypoglycemia (Primar y Dx); Mild protein-calorie malnutrition (HCC); Social anxiety disorder; Sensory food aversion; Vision changes; Low TSH level; Gender dysphoria; Night sweats; Hematuria, unspecified type; History of kidney stones Start: 06-13-2024 ambulatory [facility] Start: 06-12-2024 End: 06-12-2024 Refill Caleb Easton MD Work Phone: [facility] NE[facility]O 210 Comment on above: Intractable complex partial epilepsy (CMS/HCC); Focal epilepsy with impairment of consciousness, intractable (CMS/HCC); Epilepsy, 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CMS/HCC) Start: 06-12-2024 End: 06-12-2024 Telephone encounter Caleb Easton MD Work Phone: [facility] NE[facility]O 210 Comment on above: Intractable chronic migraine without aura and without status migrainosus (CMS/HCC) (Primary Dx) Start: 06-08-2024 ambulatory [facility] Start: 06-05-2024 End: 06-05-2024 ambulatory [facility] Start: 05-28-2024 End: 05-28-2024 Telephone encounter Caleb Easton MD Work Phone: [facility] SWS NEUR Start: 05-28-2024 ambulatory [facility] Start: 05-21-2024 End: 05-21-2024 Bamboo flowsheet Caleb Easton MD Work Phone: [facility] Start: 05-21-2024 End: 05-21-2024 Bamboo flowsheet Caleb Easton MD Work Phone: [facility] NE[facility] Start: 05-21-2024 End: 05-21-2024 Office outpatient visit 25 minutes Caleb Easton MD Work Phone: [facility] Comment on above: 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 (Primary Dx); Intractable chronic migraine without aura and without status migrainosus (CMS/HCC); Intractable complex partial epilepsy (CMS/HCC) Start: 05-18-2024 End: 05-18-2024 Telephone encounter Gale Bassett LABORATORY MONITOR.INDUSTRIAL CLEANING TECHNICIAN Work Phone: Endocrinology Comment on above: Question; dexcom 7 Start: 05-11-2024 End: 05-11-2024 ambulatory GALE BASSETT Facility:[facility] Start: 05-09-2024 ambulatory [facility] Start: 05-03-2024 End: 05-03-2024 Bamboo flowsrenetta Graham MD Work Phone: [facility] Start: 05-03-2024 End: 05-03-2024 Bammarkieo flowsrenetta Graham MD Work Phone: [facility] Start: 05-03-2024 End: 05-03-2024 Office outpatient visit 25 minutes Ainsley Graham MD Work Phone: [facility] Comment on above: Acne vulgaris (Prima ry Dx); Telogen effluvium Start: 05-01-2024 ambulatory [facility] Start: 04-30-2024 End: 04-30-2024 Social Work Basim AGUIRREW Work Phone: Endocrinology Start: 04-16-2024 End: 04-16-2024 ambulatory GALE BASSETT Facility:[facility] Start: 04-16-2024 End: 04-16-2024 Patient encounter procedure Gale Bassett LABORATORY MONITOR.INDUSTRIAL CLEANING TECHNICIAN Work Phone: Endocrinology Comment on above: Other specified diab etes mellitus with other specified complication, without long-term current use of insulin (HCC) (Primary Dx); Sensory food aversion; Abnormal weight loss; Anxiety disorder, unspecified type; Mild protein-calorie malnutrition (HCC); Low TSH level; Low weight; Psychogenic nonepileptic seizure Start: 04-02-2024 End: 04-02-2024 ambulatory [facility] Work Phone: Start: 04-02-2024 End: 04-02-2024 Patient encounter procedure [facility] G[facility]ology Work Phone: Start: 03-27-2024 ambulatory [facility] Start: 03-19-2024 End: 03-20-2024 Refill Caleb Easton MD Work Phone: [facility] NE[facility] 210 Comment on above: Intractable complex partial epilepsy (CMS/HCC); Focal epilepsy with impairment of consciousness, intractable (CMS/HCC); Epilepsy, 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CMS/HCC) Start: 03-12-2024 [facility] Start: 02-16-2024 End: 02-16-2024 Isabela flowsrenetta Easton MD Work Phone: [facility] NE[facility] Start: 02-16-2024 End: 02-16-2024 Bamboo flowsheet Caleb Easton MD Work Phone: [facility] Start: 02-16-2024 Patient encounter status Caleb Easton MD Work Phone: [facility] Start: 02-16-2024 End: 02-16-2024 Office outpatient visit 25 minutes Caleb Easton MD Work Phone: [facility] NEUR Comment on above: 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; Insomnia due to medical condition; Seizure disorder (CMS/HCC); Primary insomnia Start: 02-07-2024 End: 02-07-2024 ambulatory [facility] Start: 02-04-2024 End: 02-05-2024 Emergency department patient visit DEBBIE WILLIAM[facility] Start: 02-04-2024 End: 02-04-2024 Emergency department patient visit KAVIN FRENCH [facility] Start: 01-29-2024 Non-patient / Non-visit [facility] Work Phone: Start: 01-26-2024 ambulatory [facility] Start: 01-23-2024 End: 01-23-2024 ambulatory [facility] Start: 01-06-2024 End: 01-06-2024 Emergency department patient visit KAVIN FRENCH [facility] Start: 01-05-2024 End: 01-05-2024 ambulatory DO KAVIN FRENCH Facility:[facility] Start: 01-03-2024 End: 01-03-2024 ambulatory GLORIA [facility] Start: 12-28-2023 End: 12-28-2023 Office outpatient visit 10 minutes [facility] LABORATORY MONITOR-INDUSTRIAL CLEANING TECHNICIAN Work Phone: [facility] Comment on above: Muscle spasm (Primar y Dx); Chronic bilateral low back pain without sciatica; Chronic bilateral low back pain with bilateral sciatica; Low back pain, unspecified back pain laterality, unspecified chronicity, unspecified whether sciatica present Start: 12-28-2023 End: 12-28-2023 ambulatory [facility] Start: 12-21-2023 ambulatory REA SALINAS [facility] Start: 12-17-2023 End: 12-17-2023 Telephone encounter Nurse Nurse Triage CITY DETECTIVE Work Phone: [facility] [place] Start: 12-09-2023 End: 12-09-2023 ambulatory KAVIN Krystian GILLIAN [facility] Start: 12-09-2023 End: 12-09-2023 Subsequent hospital visit by physician Kavin French Sr., DO Work Phone: [facility] Start: 12-06-2023 End: 12-06-2023 ambulatory [facility] Start: 12-02-2023 End: 12-02-2023 ambulatory [facility] Start: 12-01-2023 End: 12-01-2023 Emergency department patient visit Aman Tapia MD Work Phone: [facility] ED Comment on above: Seizure-like activit y (HCC) (Primary Dx) Start: 12-01-2023 End: 12-01-2023 ambulatory JUDE PARRA [facility] pital Start: 12-01-2023 End: 12-01-2023 ambulatory [facility] Start: 11-25-2023 ambulatory KAVIN FRENCH [facility] Start: 11-24-2023 End: 11-30-2023 Evaluation and management of inpatient [facility] Start: 11-15-2023 End: 11-15-2023 ambulatory [facility] Start: 11-15-2023 End: 11-15-2023 Office outpatient visit 15 minutes [facility] LABORATORY MONITOR-INDUSTRIAL CLEANING TECHNICIAN Work Phone: [facility] Comment on above: Muscle spasm (Primar y Dx); Chronic bilateral low back pain with bilateral sciatica; Chronic bilateral low back pain, unspecified whether sciatica present; Low back pain, unspecified back pain laterality, unspecified chronicity, unspecified whether sciatica present Start: 10-17-2023 End: 10-17-2023 Telephone encounter Debbie Mckeon MD [facility] Start: 10-17-2023 End: 10-18-2023 amb[facility] Start: 10-17-2023 End: 10-17-2023 Evaluation and management of inpatient DEBBIE MCKEON [facility] Start: 10-10-2023 End: 10-10-2023 Patient encounter procedure [facility] Pre-Admission Testing 2 [facility] -Pre Admission Testing Comment on above: Pre-op testing (Prim walker Dx); Gross hematuria Start: 10-10-2023 End: 08-16-2024 Patient encounter status [facility] 2 [facility] Work Phone: Start: 10-10-2023 Encounter for other preprocedural examination DEBBIE [facility] Start: 10-10-2023 End: 10-12-2023 ambulatory DEBBIE Waldron [facility] Start: 09-27-2023 Orders Only Nette Lackey MD Work Phone: [facility] Physicians Obstetrics/Gynecology Start: 09-20-2023 End: 09-20-2023 ambulatory JAJA RICE [facility] Start: 09-20-2023 End: 09-20-2023 Office outpatient new 30 minutes Jaja Rice LABORATORY MONITOR-INDUSTRIAL CLEANING TECHNICIAN Work Phone: [facility] Comment on above: Muscle spasm (Primar y Dx); Chronic bilateral low back pain with bilateral sciatica; Chronic bilateral low back pain, unspecified whether sciatica present Start: 09-19-2023 End: 09-19-2023 Patient encounter procedure Nette Lackey MD [facility] Comment on above: Encounter for initia l prescription of implantable subdermal contraceptive (Primary Dx) Start: 09-19-2023 End: 09-19-2023 ambulatory NETTE LACKEY [facility] Start: 09-15-2023 Telephone encounter Enriqueta OSMAN Work Phone: [facility] Physicians Genito-Urinary Surgeons Start: 09-13-2023 End: 09-13-2023 Office outpatient new 45 minutes Nette Lackey MD Work [facility] Comment on above: Irregular menstrual cycle (Primary Dx); Cyst of left ovary Start: 09-13-2023 End: 09-13-2023 ambulatory NETTE LACKEY [facility] Start: 09-08-2023 ambulatory KAVIN RFENCH [facility] Start: 09-07-2023 End: 09-07-2023 ambulatory [facility] Comment on above: Neck pain (Primary D x) Low back pain, unspe cified back pain laterality, unspecified chronicity, unspecified whether sciatica present (Primary Dx) Start: 09-07-2023 End: 09-07-2023 Office outpatient visit 25 minutes Enriqueta OSMAN Work Phone: [facility] Physicians Genito-Urinary Surgeons Comment on above: Right kidney stone ( Primary Dx); Chronic bilateral low back pain with bilateral sciatica; Cyst of left ovary; Gross hematuria Start: 09-07-2023 End: 09-07-2023 ambulatory ENRIQUETA TSE [facility] Start: 08-26-2023 End: 08-26-2023 Evaluation and management of inpatient ROSALINE HARRIS [facility] Start: 08-26-2023 End: 08-26-2023 ambulatory SHAWNEE Goodrich CANDIS [facility] pitne Start: 08-26-2023 End: 08-26-2023 Evaluation and management of inpatient [facility] Start: 08-26-2023 End: 08-26-2023 Evaluation and management of inpatient [facility] Start: 08-26-2023 End: 08-26-2023 [facility] Start: 08-16-2023 Telephone encounter Enriqueta OSMAN Work Phone: [facility] Physicians Genito-Urinary Surgeons Start: 08-10-2023 End: 08-10-2023 Office outpatient visit 25 minutes Lavonne Thomas NP Work Phone: [facility] Comment on above: Intractable complex partial epilepsy (CMS/HCC) (Primary Dx); Cervical radiculopathy; Insomnia due to medical condition; Migraine without aura and without status migrainosus, not intractable (CMS/HCC); Memory loss; Neck pain; Cervical paraspinal muscle spasm Start: 08-02-2023 Telephone encounter Enriqueta OSMAN Work Phone: [facility] Start: 07-07-2023 End: 07-07-2023 Office outpatient visit 25 minutes Enriqueta OSMAN Work Phone: [facility] Comment on above: Right kidney stone ( Primary Dx) Start: 05-12-2023 End: 05-12-2023 Emergency department patient visit DO Kavin French Work Phone: [facility] Work Phone: Start: 04-12-2023 End: 04-12-2023 Emergency department patient visit DO Kavin French Work Phone: [facility] Work Phone: Start: 03-23-2023 End: 03-23-2023 Emergency department patient visit DO Kavin French Work Phone: [facility] Work Phone: Start: 03-11-2023 End: 03-11-2023 Emergency department patient visit DO Kavin French Work Phone: [facility] Work Phone: Start: 02-06-2023 End: 02-06-2023 Emergency department patient visit KAVIN FRENCH [facility] Start: 02-06-2023 End: 02-06-2023 Emergency department patient visit Stefanie Ortez MD [facility] ED Comment on above: Seizure (HCC) Start: 09-23-2022 End: 09-24-[address] KAVIN FRENCH Facility:[facility] Start: 09-13-2022 End: 09-13-2022 Emergency department patient visit DO Kavin French Work Phone: [facility] Work Phone: Start: 08-30-2022 End: 08-30-2022 Emergency department patient visit DO Kavin French Work Phone: [facility] Work Phone: Start: 08-18-2022 End: 08-18-2022 Emergency department patient visit DO Kavin French Work Phone: [facility] Work Phone: Start: 07-27-2022 End: 07-27-2022 Emergency department patient visit DO Los Mcnally Work Phone: [facility] Work Phone: Start: 06-12-2022 End: 06-13-[address] KAVIN FRENCH Facility:[facility] Start: 05-24-2022 End: 05-24-[address] KAVIN FRENCH Facility:[facility] Start: 05-18-2022 End: 05-18-2022 Emergency department patient visit DO Tommy Jessi Work Phone: [facility] Start: 05-15-2022 End: 05-15-[address] KAVIN FRENCH Facility:[facility] Start: 04-22-2022 End: 04-22-2022 Emergency department patient visit DO Tommy Jessi Work Phone: [facility] Start: 04-05-2022 End: 04-05-2022 Emergency department patient visit DO Tommy Jessi Work Phone: [facility] Start: 03-30-2022 End: 03-30-2022 Emergency department patient visit DO Tommy Jessi Work Phone: [facility] Start: 03-19-2022 End: 03-19-2022 Emergency department patient visit DO Tommy Jessi Work Phone: [facility] Start: 02-25-2022 End: 02-25-2022 Emergency department patient visit DO Tommy Jessi Work Phone: [facility] Start: 01-03-2022 End: 01-03-[address] KAVIN FRENCH Facility:[facility] Start: 11-29-2021 End: 11-29-[address] KAVIN FRENCH Facility:[facility] Start: 10-16-2021 End: 10-16-[address] REYES GILLIAN Facility:[facility] Start: 09-28-2021 End: 09-28-2021 Emergency department patient visit DO Kavin French Work Phone: [facility] Start: 09-09-2021 End: 09-09-2021 Emergency department patient visit DO Kavin French Work Phone: [facility] Start: 08-20-2021 ambulatory [facility] Provider Leila Peña rinology Comment on above: Invitation for [facility] study with [facility]. Wheat Start: 08-20-2021 E-mail encounter fro m caregiver [facility] Provider [facility] Start: 08-18-2021 ambulatory DION WHITE Facility:[facility] Start: 08-12-2021 End: 08-12-2021 Emergency department patient visit DO Kavin French Work Phone: [facility] Start: 08-07-2021 End: 08-07-2021 Emergency department patient visit DO Kavin French Work Phone: [facility] Start: 07-10-2021 End: 07-10-2021 Emergency department patient visit DO Kavin French Work Phone: [facility] Start: 03-23-2021 End: 03-23-2021 Emergency department patient visit KAVIN Krystian FRENCH [facility] Start: 07-20-2017 End: 07-20-2017 Emergency department patient visit [facility]LEXA SA[facility] Procedures Date Procedure Procedure Detail Performing Clinician Start: 11-01-2024 Radionuclide gastric emptying study Evelia French DO Work Phone: Start: 10-15-2024 Esophagogastroduodenoscopy Kavin Gillian DO Work Phone: Start: 09-03-2024 Urnls dip stick/tablet rgnt auto w/o microscopy Debbie Mckeon MD Work Phone: Start: 09-03-2024 MEASURE POST VOID RESIDUAL Debbie Mckeon MD Work Phone: Start: 06-29-2024 Urnls dip stick/tablet rgnt auto w/o microscopy Debbie Mckeon MD Work Phone: Start: 06-29-2024 Follow-up visit Follow-up DEBBIE MCKEON Start: 04-16-2024 Hemoglobin A1c/Hemoglobin.total in Blood Gale Bassett LABORATORY MONITOR.INDUSTRIAL CLEANING TECHNICIAN Work Phone: Start: 12-09-2023 Basic metabolic panel calcium total David Remy MD Start: 12-01-2023 Ct cervical spine w/o contrast material Aman Tapia MD Work Phone: Start: 12-01-2023 Ct head/brain w/o contrast material Eugene Tapia MD Work Phone: Start: 12-01-2023 Basic metabolic panel calcium total Eugene Tapia MD Work Phone: Start: 11-25-2023 Adult depression screening assessment Nurse Nurse Triage [facility] Work Phone: Start: 10-10-2023 Culture bacterial quanttative colony count urine Debbie Mckeon MD Work Phone: Start: 10-10-2023 Urnls dip stick/tablet rgnt auto w/o microscopy Debbie Mckeon MD Work Phone: Start: 10-10-2023 Basic metabolic panel calcium total Baljit Lacey MD Work Phone: Start: 09-19-2023 Urine test [...] of abdomen and pelvis without contrast DO Imagga Work Phone: Start: 02-06-2023 Ct head/brain w/o contrast material Stefanie Ortez MD Start: 02-06-2023 End: 02-06-2023 Comprehensive metabolic panel Stefanie Soto Start: 08-30-2022 Urine culture DO [facility] Work Phone: Start: 09-28-2021 Plain chest X-ray DO [employer] Content Phone: Start: 09-09-2021 Urine culture DO Im[facility] Work Phone: Start: 08-12-2021 Urine culture DO Im[facility] Work Phone: Start: 08-07-2021 Urine culture DO Imagga Work Phone: Start: 07-10-2021 Urine culture DO Im[facility] Work Phone: Start: 07-10-2021 CT of abdomen and pelvis without contrast DO Imagga Work Phone: Start: 12-05-2017 Electroencephalogram Urine culture DO Tommy Bowen Work Phone: Urine culture DO Tommy Jessi Work Phone: Plan of Treatment Date Care Activity Detail Author Start: 08-23-2033 Urine microalbumin profile DTaP,Tdap,Td Vaccine (2 - Td or Tdap) [facility] Start: 11-15-2025 Adult BMI Screening Adult BMI Screening [facility] Start: 10-08-2025 Glaucoma screening Dilated Retinal Exam [facility] Start: 09-03-2025 Adult BMI Screening Adult BMI Screening [facility] Start: 09-03-2025 Tobacco Screening Tobacco Screening [facility] Start: 08-16-2025 Adult BMI Screening Adult BMI Screening [facility] Start: 08-16-2025 Tobacco Screening Tobacco Screening [facility] Start: 06-29-2025 Adult BMI Screening Adult BMI Screening [facility] Start: 06-29-2025 Tobacco Screening Tobacco Screening [facility] Start: 05-11-2025 Hepatitis B screening Urine Albumin:Creatinine Ratio [facility] Start: 05-11-2025 Urine screening for protein Diabetes: Urine Protein Screening [facility] Start: 02-25-2025 Influenza vaccination [facility] Start: 02-06-2025 End: 02-06-2025 Patient encounter procedure 02/06/2025 3:00 PM EDT Office Visit [facility] [address] [place] [address] Sierra Anna, SAILMAKER [address], [address] [place] [address] [facility] Start: 12-27-2024 Adult BMI Screening Adult BMI Screening [facility] Start: 12-27-2024 Tobacco Screening Tobacco Screening [facility] Start: 12-24-2024 End: 12-24-2024 Patient encounter procedure 12/24/2024 2:45 PM EDT Office [facility] [place] [address] [place] [phone] Debbie Mckeon MD [facility] [place], [place] [id number] [facility] Start: 12-10-2024 End: 12-10-2024 Patient encounter procedure 12/10/2024 4:15 PM EDT Office Visit [facility] [address] [place] [phone] Debbie Mckeon MD [facility] [place] [address] [facility] Start: 12-08-2024 Urine screening for protein Diabetes: Urine Protein Screening [facility] Start: 12-06-2024 End: 12-06-2024 Patient encounter procedure [facility] Comment on above: Arrived Start: 11-28-2024 Adult BMI Screening Adult BMI Screening [facility] Start: 11-24-2024 Depression Screening Depression Screening [facility] Start: 11-24-2024 Tobacco Screening Tobacco Screening [facility] Start: 11-14-2024 Adult BMI Screening Adult [facility] Start: 11-14-2024 Tobacco Screening Tobacco Screening [facility] Start: 10-16-2024 Adult BMI Screening Adult BMI Screening [facility] Start: 10-16-2024 Tobacco Screening Tobacco Screening [facility] Start: 10-15-2024 [facility] Start: 10-15-2024 Hemoglobin A1c measurement HbA1C [facility] Start: 10-09-2024 Adult BMI Screening Adult BMI Screening [facility] Start: 10-09-2024 Tobacco Screening Tobacco Screening [facility] Start: 09-25-2024 End: 09-25-2024 Patient encounter procedure 09/25/2024 10:20 AM EDT Office Visit [facility] [address] [place] [address] Ainsley Graham MD [address] [place] [address] [facility] Start: 09-22-2024 Tobacco Screening Tobacco Screening [facility] Start: 09-19-2024 Adult BMI Screening Adult BMI Screening [facility] Start: 09-19-2024 Tobacco Screening Tobacco Screening [facility] Start: 09-18-2024 Adult BMI Screening Adult BMI Screening [facility] Start: 09-18-2024 Tobacco Screening Tobacco Screening [facility] Start: 09-12-2024 Adult BMI Screening Adult BMI Screening [facility] Start: 09-12-2024 Tobacco Screening Tobacco Screening [facility] Start: 09-06-2024 Adult BMI Screening Adult BMI Screening [facility] Start: 09-06-2024 End: 09-06-2024 Patient encounter procedure [facility] Comment on above: Arrived Start: 09-06-2024 Subsequent hospital visit by physician 09/06/2024 11:04 AM EDT Hospital Encounter [facility] [address] [place] [address] Right kidney stone [facility] Comment on above: Right kidney stone Start: 08-25-2024 Depression Screening Depression Screening [facility] Start: 08-25-2024 Tobacco Screening Tobacco Screening [facility] Start: 08-23-2024 End: 08-23-2024 Patient encounter procedure 08/23/2024 10:00 AM EST Office Visit [facility] [address] [place] [phone] Ainsley Graham MD [address] [place] [address] [facility] Start: 08-21-2024 End: 08-21-2024 Patient encounter procedure 08/21/2024 2:30 PM EST Office Visit [facility] [address] [place] [address] Nahun Gongora, OD [address] [place] [address] Diabetic eye screening Ophthalmology Comment on above: Diabetic eye screening Start: 08-20-2024 End: 08-20-2024 Patient encounter procedure 08/20/2024 2:20 PM EST Office Visit [facility] [address] [place] [address] Caleb Easton MD [address] [facility] [address] [address] [facility] Start: 07-28-2024 Adult BMI Screening Adult BMI Screening [facility] Start: 07-28-2024 Tobacco Screening Tobacco Screening [facility] Start: 07-27-2024 End: 07-27-2024 Patient encounter procedure 07/27/2024 8:30 AM EST Office Visit [facility] [address] [place] [address] Nahun Gongora, OD [address] [place] [address] Mild protein-calorie malnutrition (HCC) [E44.1]; Vision changes [H53.9] Ophthalmology Comment on above: Mild protein-calorie malnutrition (HCC) [E44.1]; Vision changes [H53.9] Start: 07-26-2024 End: 07-26-2024 Patient encounter procedure [facility] Comment on above: Arrived Start: 07-19-2024 End: 07-19-2024 ambulatory 07/19/2024 9:00 AM EST Education Endocrinology [address] [place] [address] [place] [address] [place] [address] endo dietitian Endocrinology Comment on above: endo dietitian Start: 07-17-2024 Hemoglobin A1c measurement Diabetes: Hemoglobin A1C [facility] Start: 07-16-2024 End: 07-16-2024 Patient encounter procedure 07/16/2024 11:00 AM EST Office Visit [facility] [address] [place] [address] Nahun Gongora, OD [address] [place] [address] Mild protein-calorie malnutrition (HCC) [E44.1]; Vision changes [H53.9] Ophthalmology Comment on above: Mild protein-calorie malnutrition (HCC) [E44.1]; Vision changes [H53.9] Start: 07-08-2024 End: 07-08-2025 Home EEG w/Video 12-26hrs Home EEG w/Video 12-26hrs Neurology Routine Seizure disorder (CMS/HCC) Expected: 07/08/2024 (Approximate), Expires: 07/08/2025 [facility] Work Phone: Comment on above: Expected: 07/08/2024 (Approximate), Expi res: 07/08/2025 Start: 07-07-2024 Tobacco Screening Tobacco Screening [facility] Start: 07-04-2024 End: 07-04-2024 Patient encounter procedure 07/04/2024 10:00 AM EST Appointment [facility] [address] [place] [phone] [facility] Start: 07-03-2024 End: 07-03-2024 Patient encounter procedure 07/03/2024 10:15 AM EST Office Visit [facility] [address] [place] [address] Ainsley Graham MD [address] [place] [address] [facility] Start: 06-29-2024 End: 06-29-2025 US Retroperitoneum Ultrasound retroperitoneal complete Imaging STAT Right kidney stone Expected: 06/29/2024, Expires: 06/29/2025 [facility] Work Phone: Comment on above: Expected: 06/29/2024, Expires: Start: 06-18-2024 End: 06-18-2024 Patient encounter procedure 06/18/2024 10:00 AM EST Office Visit Endocrinology [address] [place] [address] Gale Bassett, LABORATORY MONITOR.INDUSTRIAL CLEANING TECHNICIAN [address] [place] [address] F/U 2 months DM Endocrinology Comment on above: F/U 2 months DM Start: 05-21-2024 End: 05-21-2024 Patient encounter procedure 05/21/2024 1:20 PM EST Office Visit [facility] [address] [place] [address] Caleb Easton MD [address] [facility] [address] [place] [address] [facility] Start: 04-18-2024 End: 04-18-2024 Patient encounter procedure 04/18/2024 9:30 AM EDT Office Visit [facility] [address] [place] [address] [place] [address] Debbie Mckeon MD [address] [place] [address] Enriqueta Tse PA [address] [place] [address] [facility] Start: 04-17-2024 End: 07-17-2024 25-hydroxyvitamin D3 [Mass/volume] in Serum or Plasma VITAMIN D 25 HYDROXY Lab Routine Other specified diabetes mellitus with other specified complication, without long-term current use of insulin (HCC) Expected: 04/17/2024, Expires: 07/17/2024 [facility] Comment on above: Expected: 04/17/2024, Expires: Start: 04-17-2024 End: 07-17-2024 Parathyrin.intact [Mass/volume] in Serum or Plasma PTH INTACT Lab Routine Other specified diabetes mellitus with other specified complication, without long-term current use of insulin (HCC) Low TSH level Expected: 04/17/2024, Expires: 07/17/2024 [facility] Comment on above: Expected: 04/17/2024, Expires: Start: 04-17-2024 End: 07-17-2024 Renal function 2000 panel - Serum or Plasma RENAL FUNCTION PANEL Lab Routine Other specified diabetes mellitus with other specified complication, without long-term current use of insulin (HCC) Expected: 04/17/2024, Expires: 07/17/2024 [facility] Comment on above: Expected: 04/17/2024, Expires: Start: 04-16-2024 End: 07-16-2024 C peptide [Mass/volume] in Serum or Plasma C-PEPTIDE BLD Lab Routine Other specified diabetes mellitus with other specified complication, without long-term current use of insulin (HCC) Expected: 04/16/2024, Expires: 07/16/2024 [facility] Comment on above: Expected: 04/16/2024, Expires: Start: 04-16-2024 End: 07-16-2024 Cobalamin (Vitamin B12) [Mass/volume] in Serum or Plasma VITAMIN B12 Lab Routine Other specified diabetes mellitus with other specified complication, without long-term current use of insulin (HCC) Mild protein-calorie malnutrition (HCC) Low weight Expected: 04/16/2024, Expires: 07/16/2024 [facility] Comment on above: Expected: 04/16/2024, Expires: Start: 04-16-2024 End: 07-16-2024 Fasting glucose [Mass/volume] in Serum or Plasma GLUCOSE, FASTING Lab Routine Other specified diabetes mellitus with other specified complication, without long-term current use of insulin (HCC) Expected: 04/16/2024, Expires: 07/16/2024 [facility] Comment on above: Expected: 04/16/2024, Expires: Start: 04-16-2024 End: 07-16-2024 Glutamate decarboxylase 65 Ab [Units/volume] in Serum GLUTAMIC AC DECARBOXYLASE AB Lab Routine Other specified diabetes mellitus with other specified complication, without long-term current use of insulin (HCC) Expected: 04/16/2024, Expires: 07/16/2024 [facility] Comment on above: Expected: 04/16/2024, Expires: Start: 04-16-2024 End: 07-16-2024 Insulin [Units/volume] in Serum or Plasma INSULIN ASSAY BLOOD Lab Routine Other specified diabetes mellitus with other specified complication, without long-term current use of insulin (HCC) Expected: 04/16/2024, Expires: 07/16/2024 [facility] Comment on above: Expected: 04/16/2024, Expires: Start: 04-16-2024 End: 07-16-2024 Microalbumin/Creatinine [Mass Ratio] in Urine ALBUMIN/CREATININE RATIO, URINE Lab Routine Other specified diabetes mellitus with other specified complication, without long-term current use of insulin (HCC) Expected: 04/16/2024, Expires: 07/16/2024 [facility] Comment on above: Expected: 04/16/2024, Expires: Start: 04-16-2024 End: 07-16-2024 Thyrotropin [Units/volume] in Serum or Plasma THYROID STIMULATING HORMONE Lab Routine Other specified diabetes mellitus with other specified complication, without long-term current use of insulin (HCC) Low TSH level Low weight Expected: 04/16/2024, Expires: 07/16/2024 [facility] Comment on above: Expected: 04/16/2024, Expires: Start: 04-02-2024 Patient referral [facility] Work Phone: Start: 02-26-2024 Covid-19 Vaccine ( season) Covid-19 Vaccine ( season) [facility] Start: 02-26-[address] [facility] Start: 02-16-2024 End: 02-16-2024 Patient encounter procedure 02/16/2024 10:40 AM EDT Office Visit [facility] [address] [place] [address] Caleb Easton MD [address] [facility] [address] [place] [address] [phone] Arrived [facility] Comment on above: Arrived Start: 01-26-2024 Influenza vaccination Flu vaccine (Season Ended) [facility] Start: 01-21-2024 Adult BMI Screening Adult BMI Screening [facility] Start: 12-28-2023 End: 12-27-2024 MR Lumbar spine WO contrast MR lumbar spine without contrast Imaging Routine Chronic bilateral low back pain without sciatica Chronic bilateral low back pain with bilateral sciatica Expected: 12/28/2023, Expires: 12/27/2024 [facility] Work Phone: Comment on above: Expected: 12/28/2023, Expires: Start: 12-28-2023 End: 12-28-2023 Patient encounter procedure 12/28/2023 9:30 AM EDT Office Visit [facility] [address] [place] [address] Jaja Rice, LABORATORY MONITOR-INDUSTRIAL CLEANING TECHNICIAN [address] [place] [address] [facility] Start: 11-25-2023 Pneumococcal vaccination Pneumococcal Vaccine (2 of 2 - PCV) [facility] Start: 11-15-2023 End: 11-15-2023 Patient encounter procedure 11/15/2023 12:30 PM EDT Office Visit [facility] [address] [place] [address] Jaja Rice, LABORATORY MONITOR-INDUSTRIAL CLEANING TECHNICIAN [address] [place] [address] [facility] Start: 11-15-2023 End: 11-15-2023 Patient encounter procedure 11/15/2023 11:15 AM EDT Office Visit [facility] [address] [place] [address] Debbie Mckeon MD [address] [place] [address] [facility] Start: 10-17-2023 End: 10-17-2023 Admission to same day surgery center 10/17/2023 7:30 AM EDT - 10/17/2023 8:45 AM EDT Surgery [facility] [address] [place] [phone] Debbie Mckeon MD [address] [place] [address] CYSTOSCOPY RETROGRADE PYELOGRAM [70696 (CPT )] [facility] Comment on above: CYSTOSCOPY RETROGRADE PYELOGRAM [47257 ( CPT )] Start: 10-17-2023 End: 10-17-2023 Cysto bladder w/ureteral catheterization CYSTOSCOPY RETROGRADE PYELOGRAM Gross hematuria 10/17/2023 7:30 AM EDT [facility] Start: 10-17-2023 Subsequent hospital visit by physician 10/17/2023 7:30 AM EDT Hospital Encounter [facility] [address] [place] [address] Debbie Mckeon MD [address] [place] [facility] [place] [address] [facility] Start: 10-04-2023 End: 10-04-2023 Patient encounter procedure 10/04/2023 10:30 AM EDT [facility] [address] [place] [phone] Nette Lackey MD [address] [facility] [place] [address] [facility] Start: 09-23-2023 Subsequent hospital visit by physician 09/23/2023 1:00 PM EDT Hospital Encounter [facility] [address] [place] [address] Nette Lackey MD [address] [facility] [place] [address] [facility] Start: 09-22-2023 End: 09-22-2023 Patient encounter procedure 09/22/2023 11:00 AM EDT Office Visit [facility] [address] [place] [address] Lavonne Thomas, SAILMAKER [address] [facility] [address] [place] [address] [phone] [facility] Start: 09-20-2023 End: 09-20-2023 Patient encounter procedure [facility] Start: 09-19-2023 End: 09-19-2023 Patient encounter procedure 09/19/2023 3:15 PM EDT Procedure visit [facility] [address] [place] [address] Nette Lackey MD [address] [facility] [place] [address] [facility] Start: 09-13-2023 End: 09-12-2024 [...] Office Visit [facility] [address] [place] [address] [address] [facility] [place] [phone] Enriqueta Tse I PA [address] [place] [address] [facility] Start: 08-10-2023 End: 08-10-2023 Patient encounter procedure 08/10/2023 10:15 AM EST Office Visit [facility] [address] [place] [address] [address] [facility] [place] [address] Enriqueta Tse I PA [address] [place] [address] [facility] Start: 07-07-2023 End: 07-06-2024 US Retroperitoneum Ultrasound retroperitoneal complete Imaging Routine Right kidney stone Expected: 07/07/2023, Expires: 07/06/2024 [facility] Comment on above: Expected: 07/07/2023, Expires: Start: 07-07-2023 End: 07-06-2024 XR Abdomen AP [facility] Work Phone: Comment on above: Expected: 07/07/2023, Expires: Start: 03-23-2023 Lamotrigine measurement [facility] Start: 03-23-2023 Measurement of substance [facility] Start: 02-25-2023 Influenza vaccination Influenza Vaccine [facility] Start: 01-25-2023 Influenza vaccination Flu vaccine (#1) [facility] Start: 09-13-2022 Lamotrigine measurement [facility] Start: 09-13-2022 Measurement of substance [facility] Start: 08-18-2022 Measurement of substance [facility] Start: 2022 Screening for malignant neoplasm of cervix [facility] Start: 02-25-2022 Influenza vaccination INFLUENZA (#1) [facility] Start: 06-27-2021 DEPRESSION ASSESSMENT DEPRESSION ASSESSMENT [facility] Start: 2020 DTaP,Tdap and Td Vaccines (1 - Tdap) DTaP,Tdap and Td Vaccines (1 - Tdap) [facility] Start: 2020 DTaP/Tdap/Td vaccine (1 - Tdap) DTaP/Tdap/Td vaccine (1 - Tdap) [facility] Start: 2020 Hepatitis B Vaccine (1 of 3 - 19+ 3-dose series) Hepatitis B Vaccine (1 of 3 - 19+ 3-dose series) [facility] Start: 2020 Urine microalbumin profile DTAP,TDAP,TD (1 - Tdap) [facility] Start: 03-29-2020 Hepatitis B surface antibody level LDL Cholesterol [facility] Start: 2019 Adult BMI Follow Up Plan Adult BMI Follow Up Plan [facility] Start: 2019 Annual PCP Team Chronic Disease Visit Annual PCP Team Chronic Disease Visit [facility] Start: 2019 CHLAMYDIA SCREENING (18-24) CHLAMYDIA SCREENING (18-24) [facility] Start: 2019 Depression Screening Depression Screening [facility] Start: 2019 GC (GONORRHEA) SCREENING (1824) GC (GONORRHEA) SCREENING (1824) [facility] Start: 2019 HEPATITIS C SCREENING HEPATITIS C SCREENING [facility] Start: 2019 Hepatitis C screening [facility] Start: 2019 HIV SCREENING HIV SCREENING [facility] Start: 2019 HIV screening HIV Screening [facility] Start: 2019 Screening for Chlamydia trachomatis Chlamydia Screening (18) [facility] Start: 2017 Meningococcal B Vaccine (1 of 2 - Standard) Meningococcal B Vaccine (1 of 2 - Standard) [facility] Start: 2017 Meningococcal B Vaccine: Consider Based On Risk (1 of 2 - Patient Seeks Protection) Meningococcal B Vaccine: Consider Based On Risk (1 of 2 - Patient Seeks Protection) [facility] Start: 2017 Screening for Chlamydia trachomatis Chlamydia/GC screen [facility] Start: 2016 HIV screening HIV screen [facility] Start: 2016 HPV Vaccine (1 - 3-dose series) HPV Vaccine (1 - 3-dose series) [facility] Start: 2015 PEDS TO ADULT TRANSITION ANNUAL ASSESSMENT PEDS TO ADULT TRANSITION ANNUAL ASSESSMENT [facility] Start: 2013 Depression Screen Depression Screen [facility] Start: 2013 Depression Screening Depression Screening [facility] Start: 2013 PEDS TO ADULT TRANSITION INITIAL DISCUSSION PEDS TO ADULT TRANSITION INITIAL DISCUSSION [facility] Start: 2012 HPV VACCINE (1 - 2-dose series) HPV VACCINE (1 - 2-dose series) [facility] Start: 2011 Diabetic foot examination Diabetic Foot Exam [facility] Start: 2011 Glaucoma screening [facility] Start: 2011 MENINGOCOCCAL B: Consider based on risk (1 of 2 - Risk Bexsero 2-dose series) MENINGOCOCCAL B: Consider based on risk (1 of 2 - Risk Bexsero 2-dose series) [facility] Start: 2002 Varicella vaccine (1 of 2 - 2-dose childhood series) Varicella vaccine (1 of 2 - 2-dose childhood series) [facility] Start: 2001 COVID-19 VACCINE (#1) COVID-19 VACCINE (#1) [facility] Start: 2001 Hemoglobin A1c measurement Diabetes: Hemoglobin A1C [facility] Start: 2001 HEPATITIS B (1 of 3 - 3-dose series) HEPATITIS B (1 of 3 - 3-dose series) [facility] Start: 2001 Hepatitis B vaccine (1 of 3 - 3-dose series) Hepatitis B vaccine (1 of 3 - 3-dose series) [facility] Start: 2001 Screening for Chlamydia trachomatis Chlamydia Screening [employer] Bacteria identified in Urine by Culture [facility] End: 07-17-2025 Bacteria identified in Urine by Culture Urine culture Microbiology Routine Hematuria, unspecified type 1 Occurrences starting 07/17/2024 until 07/17/2025 Risk I/[employer] Work Phone: Comment on above: 1 Occurrences starting 07/17/2024 until 07/17/2025 End: 08-08-2025 Bacteria identified in Urine by Culture Urine culture Microbiology Routine Dysuria 1 Occurrences starting 08/08/2024 until 08/08/2025 Risk I/O Work Phone: Comment on above: 1 Occurrences starting 08/08/2024 until 08/08/2025 End: 09-06-2024 Cytology Cytology Pathology and Cytology Routine Gross hematuria 1 Occurrences starting 09/07/2023 until 09/06/2024 [employer] Comment on above: 1 Occurrences starting 09/07/2023 until 09/06/2024 Hemoglobin A1c/Hemoglobin.total in Blood HEMOGLOBIN A1C (POC) Lab Routine Other specified diabetes mellitus with other specified complication, without long-term current use of insulin (HCC) Ordered: 04/16/2024 [facility] Work Phone: Comment on above: Ordered: 04/16/2024 Patient Education [facility] Work Phone: Patient referral [facility] Work Phone: End: 12-01-2023 Urinalysis Urinalysis Lab STAT One Time for 1 Occurrences starting 12/01/2023 until 12/01/2023 [facility] [employer] Comment on above: One Time for 1 Occurrences starting 11/2023 until 12/01/2023 End: 07-07-2024 Urinalysis Urinalysis Lab Routine Right kidney stone PRN for 1 Occurrences starting 07/07/2023 until 07/07/2024 [employer] Comment on above: PRN for 1 Occurrences starting until 07/07/2024 End: 09-06-2024 Urovysion for bladder Urovysion for bladder Lab Routine Gross hematuria 1 Occurrences starting 09/07/2023 until 09/06/2024 [facility] Work Phone: Comment on above: 1 Occurrences starting 09/07/2023 until 09/06/2024 Immunizations Immunization Date Immunization Notes Care Provider [facility] 11-24-2022 pneumococcal polysaccharide vaccine, 23 valent Caleb Easton MD Work Phone: [facility] NEGATED: Highlighted row has not occurred!07-17-2017 influenza, injectable, quadrivalent, preservative free Stefanie Ortez MD [facility] [employer] Payers Date Payer Category Payer Self-pay [id number] 2021 Medicaid (Managed Care) [facility] MEDICAID [id number] 2018 Medicaid HMO [place] [id number] 2016 Medicaid [id number] 2003 Medicaid [id number] 2001 Unknown [id number] 2.16.840.1.854632.3.579.2. 176 2001 Unknown [id number] 2.16.840.1.895635.3.579.2. 594 2001 Unknown [id number] 2.16.840.1.998318.3.579.2. 593 2001 Unknown [id number] 2.16.840.1.344458.3.579.2. 593 2001 Unknown [id number] 2.16.840.1.623963.3.579.2. 593 2001 Unknown [id number] 2.16.840.1.562037.3.579.2. 593 2001 Unknown [id number] 2.16.840.1.974152.3.579.2. 593 2001 Unknown [id number] 2.16.840.1.530357.3.579.2. 593 2001 Unknown [id number] 2.16.840.1.504883.3.579.2. 593 2001 Unknown [id number] 2.16.840.1.273186.3.579.2. 173 2001 Unknown [id number] 2.16.840.1.550498.3.579.2. 177 2001 Unknown [id number] 2.16.840.1.959580.3.579.2. 177 2001 Unknown [id number] 2.16.840.1.082485.3.579.2. 177 2001 Unknown [id number] 2.16.840.1.890237.3.579.2. 177 2001 Unknown [id number] 2.16.840.1.972491.3.579.2. 177 2001 Unknown [id number] 2.16.840.1.319399.3.579.2. 1285 2001 Unknown [id number] 2.16.840.1.572161.3.579.2. 128 2001 Unknown [id number] 2.16.840.1.397574.3.579.2. 1285 2001 Unknown [id number] 2.16.840.1.147460.3.579.2. 1285 2001 Unknown [id number] 2.16.840.1.685813.3.579.2. 1285 2001 Unknown [id number] 2.16.840.1.319568.3.579.2. 1285 2001 Unknown [id number] 2.16.840.1.920811.3.579.2. 1285 2001 Unknown [id number] 2.16.840.1.411437.3.579.2. 1285 2001 Unknown [id number] 2.16.840.1.677753.3.579.2. 128 2001 Unknown [id number] 2.16.840.1.500057.3.579.2. 1285 2001 Unknown [id number] 2.16.840.1.385354.3.579.2. 1285 2001 Unknown [id number] 2.16.840.1.901138.3.579.2. 1285 2001 Unknown [id number] 2.16.840.1.583241.3.579.2. 1285 2001 Unknown [id number] 2.16.840.1.002051.3.579.2. 1285 2001 Unknown [id number] 2.16.840.1.329413.3.579.2. 1285 2001 Unknown [id number] 2.16.840.1.381242.3.579.2. 1285 2001 Unknown [id number] 2.16.840.1.847661.3.579.2. 1285 2001 Unknown [id number] 2.16.840.1.422305.3.579.2. 1285 2001 Unknown [id number] 2.16.840.1.637097.3.579.2. 1285 2001 Unknown [id number] 2.16.840.1.265463.3.579.2. 1285 2001 Unknown [id number] 2.16.840.1.463111.3.579.2. 1285 2001 Unknown [id number] 2.16.840.1.157532.3.579.2. 1285 2001 Unknown [id number] 2.16.840.1.443890.3.579.2. 1285 2001 Unknown [id number] 2.16.840.1.164259.3.579.2. 1285 2001 Unknown [id number] 2.16.840.1.200376.3.579.2. 1285 2001 Unknown [id number] 2.16.840.1.053984.3.579.2. 1285 2001 Unknown [id number] 2.16.840.1.282537.3.579.2. 1286 2001 Unknown [id number] 2.16.840.1.072648.3.579.2. 1286 2001 Unknown [id number] 2.16.840.1.684013.3.579.2. 1286 2001 Unknown [id number] 2.16.840.1.222564.3.579.2. 1286 2001 Unknown [id number] 2.16.840.1.441049.3.579.2. 1286 2001 Unknown [id number] 2.16.840.1.707982.3.579.2. 1286 2001 Unknown [id number] 2.16840.1.512403.3.579.2. 1286 2001 Unknown [id number] 2.16840.1.297970.3.579.2. 1286 2001 Unknown [id number] 2.16840.1.359464.3.579.2. 1286 2001 Unknown [id number] 2.16.840.1.972865.3.579.2. 718 2001 Unknown [id number] 2.16.840.1.208805.3.579.2. 718 1977 Unknown [id number] 2.16840.1.453037.3.579.2. 647 1959 Unknown [id number] Unknown [id number] 2.16.840.1.579066.3.579.2. 531 Unknown [id number] 2.16.840.1.203768.3.579.2. 531 Social History Date Type Detail Facility Start: 09-28-2021 [facility] Start: 2001 Sex Assigned At Female [facility] Start: 02-25-2022 End: 02-11-2023 Tobacco smoking status NHIS Never smoked tobacco (finding) [facility] Start: 03-29-2019 End: 02-11-2023 Tobacco use and exposure Smokeless tobacco non-user [facility] Start: 12-10-2020 End: 09-03-2024 Alcohol intake Ex-drinker (finding) [facility] Start: 03-23-2021 Alcohol intake Current non-dr tableau lead of alcohol (finding) [facility] [employer] Start: 2001 Sex Assigned At Not on file B ON [employer] Start: 08-10-2023 End: 09-06-2024 Alcohol intake Lifetime non-drinker (finding) [facility] Start: 08-10-2023 End: 09-06-2024 History of Social function [facility] [employer] Start: 08-10-2023 End: 09-06-2024 Tobacco use panel [facility] Physical abuse Denies [facility] Start: 04-02-2024 Tobacco smoking stat us NHIS Smoker (finding) [facility] Start: 09-04-2018 Gender identity [id number] transsexual (finding) [facility] Start: 09-04-2018 Sexual orientation Homosexual (findi ng) [facility] Has the [employer]thing, [employer], or [employer] threatened to shut off services in your home in past 12Mo No [facility] How often to you hav e a drink containing alcohol? Monthly or less [facility] How many standard drinks containing alcohol do you have on a typical day? 1 or 2 [facility] How often do you hav e 6 or more drinks on 1 occasion? Never [facility] Start: 03-12-2020 End: 11-02-2024 Sex Female (finding) [facility] Start: 10-12-2020 Gender identity Identifies as male gender (finding) [facility] Medical Equipment Procedure Code Equipment Code Equipment Original Text Equipment Identifier Dates [id number], [id number], [id number] Start: 07-03-2020 Comment on above: For use [...] goal is to have a safe discharge. Functional Status Date Assessment Result Facility 12-05-2020 Are you deaf, or do you have serious difficulty hearing No 12/05/2020 6:49 PM Herbie Orellana, NATHANIEL No [facility] 12-05-2020 Are you blind, or do you have serious difficulty seeing, even when wearing glasses No 12/05/2020 6:49 PM Herbie Orellana, NATHANIEL No [facility] 12-05-2020 Do you have serious difficulty walking or climbing stairs No 12/05/2020 6:49 PM Herbie Orellana, NATHANIEL No [facility] 12-05-2020 Do you have difficul ty dressing or bathing No 12/05/2020 6:49 PM Herbie Orellana, NATHANIEL No [facility] 12-05-2020 Because of a physica l, mental, or emotional condition, do you have difficulty doing errands alone such as visiting a physician's office or shopping No 12/05/2020 6:49 PM Herbie Orellana, NATHANIEL [facility] Mental Status Date Assessment Result Facility 12-05-2020 Because of a physica l, mental, or emotional condition, do you have serious difficulty concentrating, remembering, or making decisions No 12/05/2020 6:49 PM Herbie Orellana, NATHANIEL No [facility] Clinical Notes 12-05-2019 to 12-06-2024 Caleb Easton MD - 12/06/2024 1:20 PM EDTTelephone Encounter - Jaquelin Sheth - 11/20/2024 5:27 PM EDTTelephone Encounter - Jaquelin Sheth - 11/20/2024 5:27 PM EDT Note Date & Type Note Facility 12-06-2024 History of Present illness Narrative Images from the original note were not included. Subjective Yonatan Kovacs is a 24 y.o. adult who presents for seizures/PNES/Atrial tachy History of Present Illness The patient presents for evaluation of seizures, headaches, insomnia, atrial tachycardia, diabetes, gastroparesis, and avoidant restrictive food intake disorder. She has been experiencing daily headaches, which are resistant to her current medication regimen. She had a seizure episode last Tuesday, following which she consulted with Neurology. They discussed the potential use of topiramate for both her seizures and headaches. She was seizure-free for 4 months until the recent episode. Prior to this, she had a seizure-free period of nearly 6 months, which was interrupted by an influenza A infection accompanied by fever. Her longest seizure-free period was approximately 6 months. She is currently not driving and reports no visual disturbances or bleeding. She has Nayzilam at home, as advised by her neurologist. Her seizure history dates back to 2013 when she first experienced absence seizures, confirmed by an EEG. She does not recall the name of the hospital or neurologist who made the diagnosis. She was prescribed Remeron for sleep disturbances, but it induced severe nightmares. A sleep study conducted at [facility] revealed no significant findings. However, on the day of the procedure, she only managed to sleep for 30 minutes. She also reports instances of staying awake for up to 2 days. Trazodone has been ineffective in managing her sleep issues. Prior to the onset of her seizures, she was sleeping between 14 to 18 hours per day. She has been diagnosed with atrial tachycardia and is considering seeking a second opinion from another training development manager. Her resting heart rate was recorded at 201 prior to the procedure and has since increased to 240, even with medication. She has been informed that her heart is normal and that her fainting episodes are likely neurological in origin. 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 She has a diagnosis of diabetes and is planning to start using Dexcom. She has experienced hypoglycemic episodes during sleep, with blood glucose levels dropping to 40. She has recently been diagnosed with gastroparesis. She has been diagnosed with avoidant restrictive food intake disorder (ARFID) and is seeking recommendations for its management. She was referred to speech therapy for assistance with food intake, but the referral was not processed. She has consulted with a documentation writer at [facility] and an manager games. She reports difficulty swallowing certain textures due to her diabetes. She has lost weight recently, dropping from 102 pounds to 99 pounds. FAMILY HISTORY - Mother: Heart disease MEDICATIONS CURRENT MEDS: Nayzilam PREVIOUS MEDS: Remeron Reason for Discontinuation: Caused really bad nightmares Trazodone Reason for Discontinuation: Did not work Doxepin 10 mg Oral At bedtime Review of Systems Const: Denies appetite change, fever, chills. Allergy: Denies medication reaction. Ocular: Denies visual acuity change. ENT: Denies hearing change. Endoc: Denies weight loss. Resp: Denies dyspnoea, wheezing. Cardiac: Denies angina, palpitations. GI: Denies nausea, vomiting. Haem: Denies bleeding. : Denies incontinence. MSK: Denies arthralgias, joint oedema. Derm: Denies rash, hair loss. Neuro: Denies ataxia, tremor. Also see HPI for elements of ROS documented therein and for details of positive findings, which shall supersede the foregoing. Objective Blood pressure 118/75, pulse 82, height 5' 2 , weight 99 lb. Physical Exam Results Diagnostic Testing - Sleep Study: Insomnia but no apneas Assessment & Plan 1. 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 Topiramate will be initiated to manage her seizures and headaches. A prescription for Topamax 25 mg twice daily will be sent to her pharmacy. She is advised to keep Nayzilam on hand for breakthrough seizures. A form for driving will be completed. 2. Headaches: Migraines She experiences daily headaches. Topiramate will be used to manage these symptoms as well. 3. Insomnia. She reports significant insomnia, with previous medications like Remeron and trazodone causing adverse effects or being ineffective. A recent sleep study indicated insomnia without apneas. Doxepin 10 mg at bedtime will be prescribed to manage her insomnia. 4. Atrial tachycardia. She has a history of atrial tachycardia, with a resting heart rate currently at 240 bpm despite medication. The initiation of Topamax will be monitored to see if it affects her heart rate. If there is no improvement, a referral to another training development manager will be considered. 5. Diabetes. She has diabetes and is planning to use Dexcom for better glucose monitoring. She reports a recent episode of hypoglycemia with a blood sugar level dropping to 40 during sleep. 6. Gastroparesis. She has been diagnosed with gastroparesis, which may be contributing to her symptoms. 7. Avoidant restrictive food intake disorder (ARFID). She has ARFID and has lost a few pounds recently, dropping from 102 to 99 pounds. A letter for duane randle will be provided. 8. This clinical note was created utilizing [employer] documentation system. All information has been thoroughly reviewed, corrected as necessary, and authenticated by the provider to ensure accuracy and completeness. On occasion, [employer] ambient documentation system erroneously drops words or replaces a spoken word with a similar sounding word. Please notify with any questions or concerns regarding this clinical note. Follow-up The patient will follow up in 2 months via televisit. 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 Procedure was done to evaluate for arrhythmia in the context of recurrent syncopal episodes. Patient is amnestic for events of 11/28/2024 and denies tongue biting, urinary incontinence. Patient is awake and able to provide history. Initial seizure: 2015 (age 15); Last seizure: 07/2024. Current AEDs: - Briviact 100 mg po bid - Lamictal (believes the dose is 200 mg po bid) - Clabazam/Onfi 10 mg po q HS Current Neurologist: Caleb Easton MD; Norma Thomas NP, [place], [place]. States he had a cough the last 2 weeks, though indicates CBC was reported as normal. Denies chills, fever, focal pain, dysuria. Reports history of head traumas in the past. In the last week or two was in [place] [employer] class and head struck floor. Denies history of meningitis, encephalitis, or family history of seizures [though father's cousin reported with seizures elsewhere in the medical record]. He does not drive, and is currently not working outside the home. He denies weakness, diplopia, vision loss, gait disturbance (states gait impaired s/p seizure in 07/2024 that resolved after PT). His father accompanied him to the procedure (in waiting room) and will drive him home. He has intranasal midazolam at home (did not bring it with him). The nurse has diazepam for injection prn seizure (not used on 11/28/2024). Next appointment with neurology is scheduled: 12/06/[address] Easton according to Estrella Bethanie. Prior evaluations: Notation on [facility] indicates awoke from double mastectomy in 2020 with seizure. Clinic note excerpts, Finn Gracia, Neurology, 01/22/2022: Patient reports having onset of seizure disorder at the age of 16. Patient describes the 1st seizure starting with the sensation that something bad was going to happen. Patient reports taking some Ativan, because he thought it was anxiety. About 30 minutes later he reportedly multiple seizures that were described as generalized tonic clonic episodes. Was eventually taken to a hospital in [place] and had an EEG, however doesn't remember the results. Was most likely started on Depakote for seizure prophylaxis, however that did not seem to be effective. He was then tried on other anti seizure medications(Dilantin, alprazolam, lorazepam) which also seemed to ineffective. Shortly after having generalized convulsions, patient also started having staring spells. Few years was evaluated at [facility] where these events were consistent with nonepileptic seizures(LTME 2016). Investigations: MRI (2016; [facility]): Normal per patient. Epilepsy Monitoring Unit ([facility]; 11/2019): This EMU evaluation from 12/05/2019 to 12/11/2019 is within [address] limits. CT head was done on admission with unremarkable results. No EEG seizures or epileptiform discharges were recorded. Patient noted to have 2 typical events lasting 2 minutes to 14 minutes. Both starting with tingling in legs and/or arms and prolonged event evolved into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 (BD DISPOSABLE NEEDLES) 18 gauge x 1 ndle For use to withdraw testosterone Q2wks BD LUER-MARYLOU SYRINGE 1 mL syringe for use with testosterone injection SQ Q2wks (Patient not taking: Reported on 04/16/2024) Needle, Disp, 23 G 23 gauge x 3/4 ndle For use with testosterone administration SQ Q2wks No current facility-administered medications for this visit. Labs: Glucose (mg/dL) Date Value 05/11/2024 86 12/05/2020 87 Potassium (mmol/L) Date Value 05/11/2024 4.4 12/05/2020 4.6 Sodium (mmol/L) Date Value 05/11/2024 132 12/05/2020 137 Chloride (mmol/L) Date Value 05/11/2024 101 12/05/2020 104 CO2 (mmol/L) Date Value 05/11/2024 21 12/05/2020 19 Creatinine (mg/dL) Date Value 05/11/2024 0.75 12/05/2020 0.60 BUN (mg/dL) Date Value 05/11/2024 12 12/05/2020 8 Anion Gap (mmol/L) Date Value 05/11/2024 10 12/05/2020 14 Calcium (mg/dL) Date Value 12/05/2020 9.0 Calcium, Total (mg/dL) Date Value 05/11/2024 9.6 Lab Results Component Value Date HBA1C 5.3 04/16/2024 Cholesterol, Total Date Value Ref Range Status 03/29/2019 154 <170 mg/dL Final Comment: <170 mg/dL, Acceptable 170-199 mg/dL, Borderline high >199 mg/dL, High HDL Cholesterol Date Value Ref Range Status 03/29/2019 51 >45 mg/dL Final Comment: >45 mg/dL, Acceptable 40-45 mg/dL, Borderline <40 mg/dL, Low LDL Cholesterol Date Value Ref Range Status 03/29/2019 82 <110 mg/dL Final Comment: <110 mg/dL, Acceptable 110-129 mg/dL, Borderline high >129 mg/dL, High Triglyceride Date Value Ref Range Status 03/29/2019 106 (H) <90 mg/dL Final Comment: <90 mg/dL, Acceptable 90-129 mg/dL, Borderline high >129 mg/dL, High Glucose (mg/dL) Date Value 05/11/2024 86 12/05/2020 87 Potassium (mmol/L) Date Value 05/11/2024 4.4 12/05/2020 4.6 Sodium (mmol/L) Date Value 05/11/2024 132 12/05/2020 137 Chloride (mmol/L) Date Value 05/11/2024 101 12/05/2020 104 CO2 (mmol/L) Date Value 05/11/2024 21 12/05/2020 19 Creatinine (mg/dL) Date Value 05/11/2024 0.75 12/05/2020 0.60 BUN (mg/dL) Date Value 05/11/2024 12 12/05/2020 8 Anion Gap (mmol/L) Date Value 05/11/2024 10 12/05/2020 14 Calcium (mg/dL) Date Value 12/05/2020 9.0 Calcium, Total (mg/dL) Date Value 05/11/2024 9.6 Protein, Total (g/dL) Date Value 12/05/2019 7.7 Albumin (g/dL) Date Value 05/11/2024 4.6 12/05/2019 4.6 Bilirubin, Total (mg/dL) Date Value 12/05/2019 0.4 Alkaline Phosphatase (U/L) Date Value 12/05/2019 71 AST (U/L) Date Value 12/05/2019 14 ALT (U/L) Date Value 12/05/2019 5 ANTHROPOMETRICS Height: Last 1 Encounter Ht Readings: Date: Ht: 04/16/2024 157.5 cm (5' 2 ) Current weight: Last 3 Encounter Wt Readings: Date: Wt: 11/25/2020 49 kg (108 lb) (13%, Z= -1.15)* 04/16/2024 43.2 kg (95 lb 5.6 oz) 07/18/2024 44.5 kg (98 lb) BMI: 17 READINESS TO LEARN Cognitive ability: Alert and oriented Motivation to learn: Interested Family support: Unable to assess - Family not present Instruction provided to: Patient Patient learns best by: Individual Instruction Factors affecting learning: Emotional Factors: Depressed anxiety Physical limitations affecting learning: None Stage of Change: Contemplation Nutrition Diagnosis: Disordered eating pattern, related to: reported food intake, as evidenced by unintentional weight loss and underweight Calories Needed for Current Weight: Resting Metabolic Rate: 1142 Calories for Weight Gain 4473-4649 kcal Nutrition Intervention: AFRID resources provided Nutrition Monitoring & Evaluation: Dietitian Goals: Weight gain of 5% in 3-6 months Criteria: Weight Patient Stated Goals at today's visit: 1. Try to eat something before 12PM when you have privacy in the kitchen, instead of only eating one meal a day. 2. As discussed, consider trying any of the following foods Egg Cheese, Ice cream, Ensure / pro shake, Cameron butter, Noodles buttered 3. Follow up with psychology regarding sensory issues with food selections for both texture and color. Adherence Potential to Goals: Fair Need for Follow up: as needed Referred by: Glae Bassett, LABORATORY MONITOR, INDUSTRIAL CLEANING TECHNICIAN Consult Billing Type/Increments: Initial Assessment/15 minutes, 3 increment(s), 45 minutes Start time: 3:00 PM End time: 3:42 PM My final report will be communicated back to the requesting physician by way of shared medical record. Signed by: Gloria Zacarias RD documented in this encounterSt. [facility] Of God [facility]01-12-2025 Telephone encounter Note * Telephone Encounter - Lavonne Thomas NP - 07/08/2024 9:11 PM EST I placed order for 24-72 hour EEG with video for home. Alma please schedule patient. [facility] [id number] Miscellaneous Notes* Telephone Encounter - Lavonne Thomas NP - 07/08/2024 9:11 PM EST I placed order for 24-72 hour EEG with video for home. Alma please schedule patient. * Telephone Encounter - Siobhan Pandey - 07/08/2024 5:33 PM EST Per Lavonne Thomas NP yes we can order 24 hour video at office * Telephone Encounter - Siobhan Pandey - 07/08/2024 5:09 PM EST Subjective Patient ID: Yonatan Kovacs is a 24 y.o. female pt called in stating she is at the [facility] due to seizures and they are wanting to transfer her to [place] for a 24 hour EEG, Pt does not want to do that and wants to know if she can get this done at the office? documented in this encounterMissouri Baptist Medical CenterAzmsptthom48-19-0720 Telephone encounter Note* Telephone Encounter - Siobhan Pandey - 07/08/2024 5:33 PM EST Per Lavonne Thomas NP yes we can order 24 hour video at office [facility] [id number] Telephone encounter Note* Telephone Encounter - Siobhan Pandey - 07/08/2024 5:09 PM EST Subjective Patient ID: Yonatan Kovacs is a 24 y.o. female pt called in stating she is at the [facility] due to seizures and they are wanting to transfer her to [place] for a 24 hour EEG, Pt does not want to do that and wants to know if she can get this done at the office? [facility] [id number] Telephone encounter Note* Telephone Encounter - Lavonne Thomas NP - 07/03/2024 2:25 PM EST OARRS reviewed. [facility] [id number] Miscellaneous Notes* Telephone Encounter - Lavonne Thomas NP - 07/03/2024 2:25 PM EST OARRS reviewed. documented in this encounterMissouri Baptist Medical [id number] History of Present illness Narrative* Debbie Mckeon MD - 06/29/2024 4:45 PM EST Images from the original note were not included. [address] [facility] [id number] Patient: Karis Kovacs Date of : 2000 Encounter Date: [...] past medical history, past social history, past surgicalhistory and problem list. Past Medical History: Diagnosis Date ADHD (attention deficit hyperactivity disorder) Anesthesia complication seizures- woke up having seizre after double mastectomy 2020 Anxiety Arrhythmia SVT Atrial enlargement, right Dental disease broken teeth Depression Diabetes mellitus type 2, controlled ([facility]) dx 2020 Dizziness Epilepsy ([facility]) dx 16 years old Fractures right thumb Gender dysphoria Head injury fell off skate board about 6 ft at age 15 y.o Headache Hematuria here for workup for pending cystoscopy History of renal calculi Implantable loop recorder present upper left chest Memory loss Nexplanon in place Orthostatic hypotension Panic disorder Rash acne on Ceftin as maintenance dose Seizures ([facility]) last seizure was 08/23/23 SVT (supraventricular tachycardia) ([facility]) Syncope 07/2023 Transgender Patient prefers to be called Yonatan Visual impairment Past Surgical History: Procedure Laterality Date BREAST SURGERY Bilateral 12/04/2020 mastectomy CYSTOSCOPY INSERTION STENT URETER Right 11/24/2021 Performed by Debbie Mckeon MD at [facility] CYSTOSCOPY REMOVAL STENT Right 12/09/2021 Performed by Debbie Mckeon MD at [facility] CYSTOSCOPY RETROGRADE PYELOGRAM Bilateral 10/17/2023 Performed by Debbie Mckeon MD at [facility] INSERTION LOOP RECORDER 08/03/2023 LASER HOLMIUM URETEROSCOPY RENAL STONES < OR=1CM Right 11/24/2021 Performed by Debbie Mckeon MD at [facility] Family History Problem Relation Age of [...] by mouth in the morning and 1 tablet(500 mg total) before bedtime. 60 tablet 3 [...] by mouth in the morning and 1 tablet(500 mg total) at noon and 1 tablet [...] - Ultrasound retroperitoneal complete; Future Epilepsy, 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[facility]) Other orders - mirabegron (MYRBETRIQ) 50 mg [...] center for the back pain. Referral to traffic controller cable for the ovarian cyst. Previous ultrasound showed retention, but PVR today is 71. 07/07/23: Bilateral back pain since Apr. No obvious ureteral stones on KUB. Will check renal US 11/24/21: Right ureteroscopy 10/15/21: Stones associated with right-sided flank pain as well as constitutional symptoms of malaise, poor appetite and p.o. intake, nausea. Stone is nonobstructing but may be causing pain due to infection orirritation. Admittedly his pain and constitutional symptoms may [...] if his symptoms should be not controlled outpatient,in particular inability to tolerate p.o. intake, fevers, chills, worsening flank pain. Relevant Orders POCT Urinalysis Auto, W/O Microscopy (Completed) Ultrasound retroperitoneal complete Epilepsy, 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) Follow-up: US, call with results Debbie Mckeon MD This note was created with the assistance of a speech recognition program. While intending to generate a timely document that accurately reflects the content of the visit, no guarantee can be provided that every grammatical or spelling mistake has been or will be identified or corrected. Thank you for your understanding. documented in this encounterOhio [facility]12-27-[facility]24 Telephone encounter Note* Telephone Encounter - Gale Bassett APRN.CNP - 06/22/2024 7:33 AM EST Metformin should be discontinued from med list at this time - not diabetic at this time - no elevated glucose levels noted on CGM. [facility]12-27-2024 Miscellaneous Notes* Telephone Encounter - Gale Bassett APRN.CNP - 06/22/2024 7:33 AM EST Metformin should be discontinued from med list at this time - not diabetic at this time - no elevated glucose levels noted on CGM. * Telephone Encounter - Jesis Sanford MA - 06/21/2024 4:13 PM EST Requester: Pharmacy Patients last Endocrinology visit occurred 06/18/24. Follow-up evaluation has been established Upcoming Endocrinology Appointments - Next 365 Days Visit Type Date Time Department CÉSAR DIETITIAN VISIT 07/19/2024 9:00 AM ENDO DIAB ED [facility] . Requested Prescriptions Pending Prescriptions [...] needs scheduled appointment No documented in this encounterCleveland [id number] Telephone encounter Note * Telephone Encounter - Jessi Sanford MA - 06/21/2024 4:13 PM EST Requester: Pharmacy Patients last Endocrinology visit occurred 06/18/24. Follow-up evaluation has been established Upcoming Endocrinology Appointments - Next 365 Days Visit Type Date Time Department CÉSAR DIETITIAN VISIT 07/19/2024 9:00 AM ENDO DIAB ED [facility] . Requested Prescriptions Pending Prescriptions [...] PSS NOTE: Patient needs scheduled appointment No [facility]12-23-2024 Telephone encounter Note* Telephone Encounter - Karo Slater - 06/18/2024 3:16 PM EST Pt is scheduled on 07/27/24 and [facility]12-23-2024 Miscellaneous Notes* Telephone Encounter - Karo Slater - 06/18/2024 3:16 PM EST Pt is scheduled on 07/27/24 and added to [facility] documented in this encounterSt. John Of God Hospital12-23-2024 NoteHNO ID: [id number] Author: JESSI SANFORD MA Service: ? Author Type: Travel Manager Type: Progress Notes Filed: 06/18/2024 10:50 Note Text:[facility]12-23-2024 History of Present illness Narrative* Jessi Sanford MA - 06/18/2024 10:18 AM EST Images from the original note were not included. A * Gale Bassett APRN.INDUSTRIAL CLEANING TECHNICIAN - 06/18/2024 10:00 AM EST DISTANCE HEALTH VISIT This visit is a virtual Video encounter. It required patient-provider interaction for the medical decision making as documented below. I have communicated my name and active licensure. The patient's identity and physical location were verified at the time of this visit. Either the patient or their l egal packaging sales representative has been informed of the risks and benefits of -- and alternatives to -- treatment through a remote evaluation and consents to proceed with the evaluation remotely. Endocrinology Follow Up Subjective History of Present Illness Karis Kovacs presents today for follow up of [...] for most recent 14 days: CGM Type: DexUrgent Group G7 CGM recording adequate for interpretation: Yes [...] by mouth two times a day with meals.Insulin Response Enhancers - Biguanides CARDIOVASCULAR Medication Dosage [...] SQ [facility] [employer] [place] and Syringes brivaracetam (BRIVIACT) 100 mg tablet Take 100 mg by mouth once daily. Anticonvulsant - PyrrolidineDerivatives Ciclopirox 1 % sham lather on wet [...] testosterone [facility] [place] and Syringes Needle, Disp, 23 G 23 gauge x 3/4 ndle For use with testosterone administration SQ [facility] [place] and Syringes ondansetron orally disintegrating (ZOFRAN ODT) [...] mg by mouth. Antidepressant - Selective Serotonin ReuptakeInhibitors (SSRIs) sertraline (ZOLOFT) 50 mg tablet Take 50 mg by mouth. Antidepressant - Selective Serotonin ReuptakeInhibitors (SSRIs) Sulfacetamide Sodium, Acne, 10 % susp [...] Date Value 05/11/2024 94.6 Impression / Recommendations Karis Kovacs is here for follow up of [...] similar concentrated protein that is palatable before bedto prevent hypoglycemia - consult DM education for further diabetes education on lifestyle modifications and increased foods that would help regulate low glucose levels Diabetes Plan: - discussed no current diabetes diagnosis - recommend follow up with Speech therapy (referral placed) to help with texture aversion and Viticulturist (appt scheduled) to work with you for [...] etc - advised early treatment will prevent mcc complications and possible hospital admission Vision changes [...] which included preparing to see the patient, [id number] patient care, completing clinical documentation, obtaining and/or reviewing separately obtained history, performing a medically appropriate examination, counseling and educating the pat ient/family/caregiver, and ordering medications, tests, or procedures. Gale Bassett APRN.[facility] Department of Endocrinology [facility] Answers submitted by the patient for [...] Loss: No Seizures: No documented in this encounterSt. John Of God Hospital12-23-2024 NoteHNO ID: [id number] Author: GALE BASSETT APRN.AMELIA Service: ? Author Type: Nurse Practitioner [...] visit. Either the patient or their legal packaging sales representative has been informed of the risks and benefits of -- and alternatives to -- treatment through a remote evaluation and consents to proceed with the evaluation remotely. Endocrinology Follow Up Subjective History of Present Illness Karis Kovacs presents today for follow up of [...] for most recent 14 days: CGM Type: SynergEyes G7 CGM recording adequate for interpretation: Yes [...] SQ [facility] - [place] and Syringes brivaracetam (BRIVIACT) 100 mg tablet [...] Phenyltriazine Derivatives LORazepam (ATIV (more content not included)...[facility] 06-12-2024 Telephone encounter Note* Telephone Encounter - Marian Damon - 06/12/2024 2:01 PM EST Patient called in to say he's having tingling, numbness, and extremely painful headaches. Please follow up with patient and advise. [facility] [id number] Miscellaneous Notes* Telephone Encounter - Marian Damon - 06/12/2024 2:01 PM EST Patient called in to say he's having tingling, numbness, and extremely painful headaches. Please follow up with patient and advise. documented in this encounterMissouri Baptist Medical CenterTbagwafota06-45-1617 NoteUT Electrophysiology Consult Note Reason for visit: event monitor from 01/2023 , palpitations 06/05/24 Patient here for 4 mo follow up intermittent palpitations and positional lightheadedness. C/o chest pain and SOB. C/o night sweats and having to change his shirt several times during the night. C/o fatigue. 02/07/24 Patient was recently evaluated by Jacqueline Damon after admission for near syncope and questionable seizures. She was initially admitted to [facility] and then thereafter transferred to [facility]. Reportedly he had fbmw-co-sbxl seizures while he was undergoing his physical [...] was noted on January 05, 2024 HPI: Karis Kovacs is a 23 y.o. year old [...] to male transgender FMH- Maternal grandmother early NV- 30's, Maternal grandfather- early NV in 40's Allergies-none Home meds-Effexor and testosterone injections Per Dr. Esparza 09/23/20 HPI: 20-year-old patient with a history of seizure disorder was recently seen by Teo for complaints of palpitations. He states that he has felt them quite often and was significantly bothered by it on August 10 that he went to [facility]. EKG that performed shows evidence of [...] history Family medical history-paternal grandfather of an NV at 46 years of age, paternal uncle CAD, sister with SVT, grandmother A. fib Social-never smoker, admits occasional alcohol about once or twice a year, daily marijuana use PMH: No past medical history on file. PSH: No past surgical history on file. SH: Social Determinants of Health Tobacco Use: Low Risk (05/21/2024) Received from [facility] Healthcare Patient History Smoking Tobacco Use: Never Smokeless Tobacco Use: Never Passive Exposure: Not on file Alcohol Use: Not At Risk (11/25/2023) Received from [facility], [facility] [employer] AUDIT-C Frequency of Alcohol Consumption: Monthly or less Average Number of Drinks: 1 or 2 Frequency of Binge Drinking: Never Financial Resource Strain: Not on file Food Insecurity: No Food Insecurity (02/04/2024) Received from [facility], [facility] Hunger Screening Within the past 12 months we worried whether our food would run out before we got money to buy more.: Never True Within the past 12 months the food we bought just didn't last and we didn't have money to get more.: Never True Transportation Needs: No Transportation Needs (11/25/2023) [facility] [employer] [employer] PRAPARE - Transportation Lack of Transportation (Medical): No Lack of Transportation (Non-Medica (more content not included)...[facility]12-02-2024 Telephone encounter Note* Telephone Encounter - Enriqueta Goss - 05/28/2024 11:06 AM EST Patient called and states that [facility] in [place] is unable to fill the Focalin as they are currently out. Patient is wanting to know if this can be resent to [facility] in [place]. [phone] [facility] CenterYeygblfurg41-92-8651 Miscellaneous Notes* Telephone Encounter - Enriqueta Goss - 05/28/2024 11:06 AM EST Patient called and states that [facility] in [place] is unable to fill the Focalin as they are currently out. Patient is wanting to know if this can be resent to [facility] in [place]. [phone] documented in this encounterMissouri Baptist Medical CenterKhklivjnjn71-10-1440 History of Present illness Narrative* Caleb Easton MD - 05/21/2024 1:20 PM EST Images from the original note were not included. CHIEF COMPLAINT REASON FOR VISIT: seizures, migraines, ADD HPI: Yonatan Kovacs is a 23 y.o. female who presents for a follow up. He did bring aimovig injection. He states Efrain made 3 months he has been seizure [...] Medical History: Diagnosis Date Diabetes (CMS/HCC) Seizures ([facility]) Past Surgical History: Procedure Laterality Date LOOP RECORDER IMPLANT Left MASTECTOMY Bilateral Social History Tobacco Use Smoking status: Never Smokeless tobacco: Never Vaping Use Vaping status: Never Used Substance Use Topics Alcohol use: Never Drug use: Yes Types: Marijuana Family History Problem Relation Name Age of Onset Cancer Other Melanoma Neg Hx Depression: Not at risk (11/25/2023) [facility] [employer], [facility] PHQ-2 Total Score: 0 REVIEW OF SYMPTOMS: [...] Positive for headaches. Negative for tremors, weakness, light- headedness and numbness. Psychiatric/Behavioral: Negative for agitation, confusion [...] Oriented to person, place and time. Recent andremote memory are intact. Speech is normal. Language [...] reflexes: Aj's absent. Ankle clonus absent. Coordination Zrzuqc-vb-dlng, rapid alternating movements and oynd-mu-fktd normal bilaterally without dysmetria. Gait Normal casual, [...] syringe 225 mg for migraine prevention. Sample providedtoday. Intractable complex partial epilepsy (CMS/HCC) Continue briviact 100 mg BID Continue lamotrigine 200 mg BID Nayzilam as needed He has been seizure free for 3 months. I counseled the patient on the possible side effects and interactions of medications. Total time 20-30 minutes spent reviewing records, performing medically appropriate exam, counseling, education, ordering medication, tests, and/or procedures, documenting health information into thehealth record, communicating results to the patient, and coordinating care. Follow up 3 months. documented in this encounterMissouri Baptist Medical CenterUvcfkdqqkd27-46-3047 Telephone encounter Note* Telephone Encounter - Jessi Sanford MA - 05/18/2024 4:34 PM EST Called and informed pt of below message. Placed sensors at Desk C for lease picker. Jessi Sanford MA [facility]11-22-2024 Miscellaneous Notes* Telephone Encounter - Jessi Sanford MA - 05/18/2024 4:34 PM EST Called and informed pt of below message. Placed sensors at Desk C for lease picker. Jessi Sanford MA * Telephone Encounter - Gale Bassett APRN.CNP - 05/18/2024 4:24 PM EST Please discontinue metformin and come in for 2 more sensors - to see how you do off of the medication * Telephone Encounter - Jessi Sanford MA - 05/18/2024 3:36 PM EST Images from the original note were not included. Full Dexcom report printed and placed on providers desk for review. * Telephone Encounter - Jaqueline Coronado RN - 05/18/2024 2:15 PM EST Pt calls Seen 04-16-2024 Ov notes reviewed Asking if provider would like pt to stay on dexcom 7 He has applied the last disk to his arm Pharm on dial [facility]/ [place] documented in this encounterSt. [facility] Of [facility]11-22-2024 Telephone encounter Note * Telephone Encounter - Gale Bassett APRN.INDUSTRIAL CLEANING TECHNICIAN - 05/18/2024 4:24 PM EST Please discontinue metformin and come in for 2 more sensors - to see how you do off of the medication [facility]11-22-2024 Telephone encounter Note* Telephone Encounter - Jessi Sanford MA - 05/18/2024 3:36 PM EST Images from the original note were not included. Full Dexcom report printed and placed on providers desk for review. [facility]11-22-2024 Telephone encounter Note* Telephone Encounter - Jaqueline Coronado RN - 05/18/2024 2:15 PM EST Pt calls Seen 04-16-2024 Ov notes reviewed Asking if provider would like pt to stay on dexcom 7 He has applied the last disk to his arm Pharm [facility] [facility]11-07-2024 History of Present illness Narrative* Ainsley Graham MD - 05/03/2024 10:35 AM EST Images from the original note were not [...] taking medication, wear sunscreen as this medication increasessun sensitivity, and discontinue medication and notify clinic [...] poor nutrition. Patient reports already being scheduled tosee a documentation writer to help work on diet. Discussed starting [...] not start unless cleared by PCP, stop ifdizziness/lightheadedness occurs. Next Visit: 2 months documented in this encounterMissouri Baptist Medical [id number] NoteHNO ID: [id number] Author: BASIM STEARNS LSW Service: ? Author Type: Compliance And Control Analyst Type: Progress Notes Filed: 04/30/2024 12:34 Note Text: Endocrine Psychology Welcome Group Karis Kovacs 2000 [phone] Date of Service: April 30, 2024 Patient advised of group visit and informed of privacy restrictions with group appointment. Patient instructed to be in a quiet, private area. Provided information for general psychology both within and outside the [facility]. This is appropriate for patients who experience mental health symptoms such as Depression, Anxiety, OCD, Bipolar disorder, etc. Discussed Endocrine Psychology resources for individuals who experience Night Eating, Binge Eating, Emotional Eating, Body Image, and Support for long-term weight management. Current Endocrine Psych Treatment consists of Individual and Group appointments. Informed patient on Endocrine power lineworker services to assist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 daily as needed for nausea orvomiting., Disp: 30 tablet, Rfl: 1 tiZANidine (ZANAFLEX) 2 mg tablet, Take 1 tablet (2 mg total) by mouth every 8 (eight) hours as needed for muscle spasms. (Patient taking differently: Take 2 tablets (4 mg total) by mouth every 8 (eight) hours as needed for muscle spasms.), Disp: 30 tablet, Rfl: 0 UBRELVY 100 mg tablet, Take 1 tablet by mouth once as needed., Disp: , Rfl: naproxen (NAPROSYN) 500 mg tablet, Take 1 tablet (500 mg total) by mouth in the morning and 1 tablet (500 mg total) before bedtime., Disp: 60 tablet, Rfl: 3(All medications reviewed and updated) PAST MEDICAL HISTORY Past Medical History: Diagnosis Date ADHD (attention deficit hyperactivity disorder) Anesthesia complication seizures- woke up having seizre after double mastectomy 2020 Anxiety Arrhythmia SVT Dental disease broken teeth Depression Diabetes mellitus type 2, controlled ([facility]) dx 2020 Dizziness Epilepsy ([facility]) dx 16 years old Fractures right thumb Gender dysphoria Head injury fell off skate board about 6 ft at age 15 y.o Headache Hematuria here for workup for pending cystoscopy History of renal calculi Implantable loop recorder present upper left chest Memory loss Nexplanon in place Orthostatic hypotension Panic disorder Rash acne on Ceftin as maintenance dose Seizures ([facility]) last seizure was 08/23/23 SVT (supraventricular tachycardia) ([facility]) Syncope 07/2023 Transgender Patient prefers to be called Alba Visual impairment SOCIAL HISTORY Social History Occupational History Not on file Tobacco Use Smoking status: Never Smokeless tobacco: Never Vaping Use Vaping status: Never Used Substance and Sexual Activity Alcohol use: Not Currently Drug use: Yes Frequency: 7.0 times per week Types: Marijuana Sexual activity: Yes Partners: Male control/protection: None REVIEW OF SYSTEMS Review of Systems PHYSICAL EXAMINATION Objective Vitals: BP 121/79 Pulse 64 Ht 157.5 cm (5' 2 ) Wt 46.3 kg (102 lb) BMI 18.66 kg/m Physical Exam Vitals reviewed. Constitutional: Appearance: Normal appearance. He is well-developed. HENT: Head: Normocephalic. Cardiovascular: Rate and Rhythm: Normal rate. Pulmonary: Effort: Pulmonary effort is normal. Musculoskeletal: Cervical back: Normal range of motion. Comments: Upper extremity muscle strength: -Deltoids (C5): 5/5 right, 5/5 left -Biceps (C5, C6): 5/5 right, 5/5 left -Triceps (C6, C7, C8): 5/5 right, 5/5 left -Flexor carpi radialis (C6, C7): 5/5 right, 5/5 left -Flexor carpi ulnaris (C7, C8): 5/5 right, 5/5 left -First Dorsal Interosseous (C8, T1): 5/5 right, 5/5 left -Abductor Digiti Minimi (C8, T1): 5/5 right, 5/5 left -Hand grasps: 5/5 right, 5/5 left Lower extremity muscle strength: -Hip Flexors (T12, [...] is intact. Deep Tendon Reflexes: Reflex Scores: Tricep reflexes are 2+ on the right side and 2+ on the left side. Bicep reflexes are 2+ on the right side and 2+ on the left side. Brachioradialis reflexes are 2+ on the right side and 2+ on the left side. Patellar reflexes are 2+ on the right side and 2+ on the left side. Achilles reflexes are 2+ on the right side and 2+ on the left side. Comments: No atrophy, clonus, or fasciculations Psychiatric: Attention and Perception: Attention normal. Mood and Affect: Mood and affect normal. Speech: Speech normal. Behavior: Behavior is cooperative. ASSESSMENT/ PLAN Exam is stable. Discussed with Yonatan that he must complete 6 weeks of either physical therapy or aprovider guided home exercise plan before an MRI can be requested. HEP provided with instructions in the AVS. Since Yonatan continues to have considerable back pain with minimal to no relief from NSAIDs to date and a muscle relaxant, I will place a referral for a pain management service in his [place]area. We will discontinue ibuprofen and try naproxen 500 mg twice a day as needed for pain to see if he has better results from that. His neurologist increased his tizanidine from 2-4 mg. We will follow-up in 6 weeks for re- evaluation and consider MRIs at that time if symptoms have not improved. Assessment 1. Chronic bilateral low back pain with bilateral sciatica 2. Muscle spasm 3. Chronic bilateral low back pain, unspecified whether sciatica present 4. Low back pain, unspecified back pain laterality, unspecified chronicity, unspecified whether sciatica present Plan 1. Chronic bilateral low back pain with bilateral sciatica - [place], [place]; Future - naproxen (NAPROSYN) 500 mg tablet; Take 1 tablet (500 mg total) by mouth in the morning and 1 tablet (500 mg total) before bedtime. Dispense: 60 tablet; Refill: 3 2. Muscle spasm - [place], [place]; Future - naproxen (NAPROSYN) 500 mg tablet; Take 1 tablet (500 mg total) by mouth in the morning and 1 tablet (500 mg total) before bedtime. Dispense: 60 tablet; Refill: 3 3. Chronic bilateral low back pain, unspecified whether sciatica present - [place], [place]; Future - naproxen (NAPROSYN) 500 mg tablet; Take 1 tablet (500 mg total) by mouth in the morning and 1 tablet (500 mg total) before bedtime. Dispense: 60 tablet; Refill: 3 4. Low back pain, unspecified back pain laterality, unspecified chronicity, unspecified whether sciatica present - [place], [place]; Future - naproxen (NAPROSYN) 500 mg tablet; Take 1 tablet (500 mg total) by mouth in the morning and 1 tablet (500 mg total) before bedtime. Dispense: 60 tablet; Refill: 3 The patient was instructed to call if worsening or not improving. The OARRS/MAPPS database was reviewed today and found to be appropriate. No indication of medication diversion, or non compliance. I educated the patient on s/s and provided information in the AVS regarding cauda equina and myelopathy if pertinent. I advised the patient to go to the ER if these symptoms occur. All questions were answered during the encounter [...] clinical information in the electronic health record. Appropriate home exercise program education provided in AVS New medication information provided in AVS if pertinent Smoking cessation provided in patient's AVS if pertinent. Total time spent was 22 minutes: Preparing to see the patient (e.g., review of tests) Obtaining and/or reviewing separately obtained history Performing a medically appropriate examination and/or evaluation Counseling and educating the patient/family/caregiver Ordering medications, tests, or procedures Referring and communicating with other health hospice care consultant (not separately reported) Documenting clinical information in the electronic or other health record Independently interpreting results (not separately reported) and communicating results to the patient/family/caregiver Care coordination (not separately reported) Thank you for the referral. Jaja Rice CNP [facility] This note was created with the assistance of a speech recognition program. While intending to generate a timely document that accurately reflects the content of the visit, no guarantee can be provided that every grammatical or spelling mistake has been or will be identified or corrected. Thank you for your understanding. MILAGROS Duffy 11/15/23 1505 documented in this [facility]05-21-2024 Instructions* Patient Instructions* MILAGROS Duffy - 11/15/2023 12:30 PM EDT Home exercises, perform each exercise 10 repetitions per day Referral to pain management Follow up in 6-8 weeks * Attachments The following attachments cannot be sent through Care Everywhere. * Back Exercises (Yemeni) * Exercises for Upper Back Pain (Yemeni) documented in this [facility]04-22-2024 Miscellaneous Notes* Telephone Encounter - Debbie Mckeon MD - 10/17/2023 7:48 PM EDT Please schedule follow up in 6 months with PA [facility] Telephone encounter Note* Telephone Encounter - Debbie Mckeon MD - 10/17/2023 7:48 PM EDT Please schedule follow up in 6 months with PA [facility]04-15-[facility] History and physical note* DAWSON Vazquez - 10/10/2023 10:00 AM EDT PRE-ADMISSION TESTING HISTORY AND PHYSICAL EXAM DATE: 10/10/23 PCP: KAVIN FRENCH DO CHIEF COMPLAINT: Left flank pain HISTORY OF PRESENT ILLNESS: Karis Kovacs, a 23 y.o. White or adult, presents to [facility] for a pre-surgical H&P. Father is present in the room. The patient has been diagnosed with gross hematuria. He complains of left flank pain. Patient has a h/o kidney stones. His pain began in Apr 2023. Left flank and left abdominal pain. He then developed gross hematuria. The hematuria went on for 4 weeks. He currently does not have urinary symptoms but does still have the flank/abdominal pain. He had urinary retentionin the past but does not complain of that currently. No h/o blood clots or blood transfusions. Patient reports he has seizures coming out of anesthesia. 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 History provided today vs chart review makes it difficult to establish what true medical diagnosis that Yonatan has in regards to seizure like activity. PAST MEDICAL HISTORY: Past Medical History: Diagnosis Date ADHD (attention deficit hyperactivity disorder) Anesthesia complication seizures- woke up having seizre after double mastectomy 2020 Anxiety Arrhythmia SVT Dental disease broken teeth Depression Diabetes mellitus type 2, controlled ([facility]) dx 2020 Dizziness Epilepsy ([facility]) dx 16 years old Fractures right thumb Gender dysphoria Head injury Headache Hematuria here for workup for pending cystoscopy History of renal calculi Implantable loop recorder present upper left chest Memory loss Nexplanon in place Orthostatic hypotension Panic disorder Rash acne on Ceftin as maintenance dose Seizures ([facility]) last seizure was 08/23/23 SVT (supraventricular tachycardia) ([facility]) Syncope 07/2023 Transgender Patient prefers to be called Alba Visual impairment PAST SURGICAL HISTORY: Past Surgical History: Procedure Laterality Date BREAST SURGERY Bilateral 12/04/2020 mastectomy CYSTOSCOPY INSERTION STENT URETER Right 11/24/2021 Performed by Debbie Mckeon MD at [facility] CYSTOSCOPY REMOVAL STENT Right 12/09/2021 Performed by Debbie Mckeon MD at [facility] INSERTION LOOP RECORDER 08/03/2023 [facility] URETEROSCOPY RENAL STONES < OR=1CM Right 11/24/2021 Performed by Debbie Mckeon MD at [facility] FAMILY HISTORY: Family History Problem Relation Age of Onset Cancer Paternal Grandmother bladder No Known Problems Father No Known Problems Mother Breast cancer Maternal Aunt Anesthesia problems Neg Hx SOCIAL HISTORY: The patient reports that he does not currently use alcohol. He reports that he has never smoked. He has never used smokeless tobacco. He reports current drug use. Frequency: 7.00 times per week. Drug: Marijuana. ALLERGIES: Allergies Allergen Reactions Codeine Hives and Itching MEDICATIONS: Current Outpatient Medications: BRIVIACT 50 mg tablet, Take 2 tablets (100 mg total) by mouth in the morning and 2 tablets (100 mg total) before bedtime., Disp: , Rfl: ceFUROxime (CEFTIN) 250 mg tablet, Take 1 tablet (250 mg total) by mouth in the morning., Disp: , Rfl: ciclopirox (LOPROX) 1 % shampoo, Apply 1 Application topically 2 (two) times a week., Disp: , Rfl: cloBAZam (ONFI) 2.5 mg/mL suspension, Take 4 mL (10 mg total) by mouth in the morning. 1999., Disp:, Rfl: erenumab-aooe (AIMOVIG AUTOINJECTOR) 140 mg/mL auto-injector, Inject 140 mg under the skin every 28days., Disp: , Rfl: lamoTRIgine (LaMICtal) 100 mg tablet, Take 1.5 tablets (150 mg total) by mouth in the morning and 1.5 tablets (150 mg total) before bedtime., Disp: , Rfl: midodrine (PROAMATINE) 5 mg tablet, Take 1 tablet (5 mg total) by mouth 3 (three) times a day Indications: a feeling of dizziness upon standing due to a drop in blood pressure., Disp: , Rfl: tiZANidine (ZANAFLEX) 2 mg tablet, Take 1 tablet (2 mg total) by mouth every 8 (eight) hours as needed for muscle spasms., Disp: 30 tablet, Rfl: 0 ibuprofen (MOTRIN) 600 mg tablet, Take 1 tablet (600 mg total) by mouth every 6 (six) hours as needed for pain. (Patient not taking: Reported on 10/10/2023), Disp: 30 tablet, Rfl: 0 midazolam (NAYZILAM) 5 mg/spray (0.1 mL) spray,non-aerosol, Administer 5 mg into each nostril as needed (seizure activity)., Disp: , Rfl: ondansetron (ZOFRAN) 4 mg tablet, Take 1 tablet (4 mg total) by mouth daily as needed for nausea orvomiting., Disp: 30 tablet, Rfl: 1 UBRELVY 100 mg tablet, Take 1 tablet by mouth once as needed., Disp: , Rfl: REVIEW OF SYSTEMS: Review of Systems Constitutional: Negative for fever and chills. HENT: Positive for dental problem (missing teeth). Negative for congestion. Eyes: Negative for discharge and redness. Respiratory: Negative for cough and shortness of breath. Cardiovascular: Negative for chest pain. Gastrointestinal: Positive for abdominal pain. Negative for vomiting and diarrhea. Genitourinary: Positive for flank pain. Negative for dysuria, frequency and difficulty urinating. Skin: Negative for rash and wound. VITAL SIGNS: BP 111/73 Pulse 61 Temp (!) 35.8 C (96.4 F) (Temporal) Resp 16 Ht 159 cm (5' 2.6 ) Wt 46.3 kg (102 lb 1.2 oz) LMP 09/12/2023 Comment: has Nexplanon SpO2 100% BMI 18.31 kg/m PHYSICAL EXAM: Physical Exam Vitals reviewed. Constitutional: General: He is not in acute distress. HENT: Head: Normocephalic and atraumatic. Mouth/Throat: Dentition: Abnormal dentition (missing). Comments: Mallampati I Eyes: Conjunctiva/sclera: Conjunctivae normal. Cardiovascular: Rate and Rhythm: Normal rate and regular rhythm. Pulmonary: Effort: Pulmonary effort is normal. Breath sounds: Normal breath sounds. No wheezing. Abdominal: Palpations: Abdomen is soft. Tenderness: There is no abdominal tenderness. There is no right CVA tenderness, left CVA tendernessor guarding. Musculoskeletal: Cervical back: Neck supple. Skin: General: Skin is warm and dry. Neurological: Mental Status: He is alert and oriented to person, place, and time. Mental status is at baseline. Psychiatric: Mood and Affect: Mood normal. Behavior: Behavior normal. RECENT LABS: Lab Results Component Value Date WBC 5.4 08/26/2023 HGB 11.1 (L) 08/26/2023 HCT 33.1 (L) 08/26/2023 PLT 184 08/26/2023 SODIUM 141 08/26/2023 K 3.3 (L) 08/26/2023 CL 107 08/26/2023 CO2 27 08/26/2023 CALCIUM 8.5 08/26/2023 ALKPHOS 57 08/25/2023 ALBUMIN 4.7 08/25/2023 GLU 108 (H) 08/26/2023 HGBA1C 5.2 11/17/2021 ALT 11 08/25/2023 AST 34 08/25/2023 CREATININE 0.73 08/26/2023 BUN 8 08/26/2023 GFR >60 11/25/2021 GFR >60 11/25/2021 EGFR >90 08/26/2023 TSH 0.74 09/27/2023 *Please note that labs listed above are the most recent lab values available in [facility] at the time ofthe office visit and additional labs may have been drawn since that time. ASSESSMENT / DIAGNOSIS: Gross hematuria PLAN: Karis Kovacs is scheduled for cystoscopy retrograde pyelogram bilateral by Dr. Mckeon on 10/17/23. DAWSON Vazquez 10/10/23 1050 DAWSON Vazquez 10/10/23 1104 DAWSON Vazquez 10/10/23 1130 [facility]04-[facility] History and physical note* DAWSON Vazquez - 10/10/2023 10:00 AM EDT PRE-ADMISSION TESTING HISTORY AND PHYSICAL EXAM DATE: 10/10/23 PCP: KAVIN FRENCH DO CHIEF COMPLAINT: Left flank pain HISTORY OF PRESENT ILLNESS: Karis Kovacs, a 23 y.o. White or adult, presents to [facility] for a pre-surgical H&P. Father is present in the room. The patient has been diagnosed with gross hematuria. He complains of left flank pain. Patient has a h/o kidney stones. His pain began in Apr 2023. Left flank and left abdominal pain. He then developed gross hematuria. The hematuria went on for 4 weeks. He currently does not have urinary symptoms but does still have the flank/abdominal pain. He had urinary retentionin the past but does not complain of that currently. No h/o blood clots or blood transfusions. Patient reports he has seizures coming out of anesthesia. 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 History provided today vs chart review makes it difficult to establish what true medical diagnosis that Yonatan has in regards to seizure like activity. PAST MEDICAL HISTORY: Past Medical History: Diagnosis Date ADHD (attention deficit hyperactivity disorder) Anesthesia complication seizures- woke up having seizre after double mastectomy 2020 Anxiety Arrhythmia SVT Dental disease broken teeth Depression Diabetes mellitus type 2, controlled ([facility]) dx 2020 Dizziness Epilepsy ([facility]) dx 16 years old Fractures right thumb Gender dysphoria Head injury Headache Hematuria here for workup for pending cystoscopy History of renal calculi Implantable loop recorder present upper left chest Memory loss Nexplanon in place Orthostatic hypotension Panic disorder Rash acne on Ceftin as maintenance dose Seizures ([facility]) last seizure was 08/23/23 SVT (supraventricular tachycardia) ([facility]) Syncope 07/2023 Transgender Patient prefers to be called Yonatan Visual impairment PAST SURGICAL HISTORY: Past Surgical History: Procedure Laterality Date BREAST SURGERY Bilateral 12/04/2020 mastectomy CYSTOSCOPY INSERTION STENT URETER Right 11/24/2021 Performed by Debbie Mckeon MD at [facility] CYSTOSCOPY REMOVAL STENT Right 12/09/2021 Performed by Debbie Mckeon MD at [facility] INSERTION LOOP RECORDER 08/03/2023 [facility] URETEROSCOPY RENAL STONES < OR=1CM Right 11/24/2021 Performed by Debbie Mckeon MD at [facility] FAMILY HISTORY: Family History Problem Relation Age of Onset Cancer Paternal Grandmother bladder No Known Problems Father No Known Problems Mother Breast cancer Maternal Aunt Anesthesia problems Neg Hx SOCIAL HISTORY: The patient reports that he does not currently use alcohol. He reports that he has never smoked. He has never used smokeless tobacco. He reports current drug use. Frequency: 7.00 times per week. Drug: Marijuana. ALLERGIES: Allergies Allergen Reactions Codeine Hives and Itching MEDICATIONS: Current Outpatient Medications: BRIVIACT 50 mg tablet, Take 2 tablets (100 mg total) by mouth in the morning and 2 tablets (100 mg total) before bedtime., Disp: , Rfl: ceFUROxime (CEFTIN) 250 mg tablet, Take 1 tablet (250 mg total) by mouth in the morning., Disp: , Rfl: ciclopirox (LOPROX) 1 % shampoo, Apply 1 Application topically 2 (two) times a week., Disp: , Rfl: cloBAZam (ONFI) 2.5 mg/mL suspension, Take 4 mL (10 mg total) by mouth in the morning. 1999., Disp:, Rfl: erenumab-aooe (AIMOVIG AUTOINJECTOR) 140 mg/mL auto-injector, Inject 140 mg under the skin every 28days., Disp: , Rfl: lamoTRIgine (LaMICtal) 100 mg tablet, Take 1.5 tablets (150 mg total) by mouth in the morning and 1.5 tablets (150 mg total) before bedtime., Disp: , Rfl: midodrine (PROAMATINE) 5 mg tablet, Take 1 tablet (5 mg total) by mouth 3 (three) times a day Indications: a feeling of dizziness upon standing due to a drop in blood pressure., Disp: , Rfl: tiZANidine (ZANAFLEX) 2 mg tablet, Take 1 tablet (2 mg total) by mouth every 8 (eight) hours as needed for muscle spasms., Disp: 30 tablet, Rfl: 0 ibuprofen (MOTRIN) 600 mg tablet, Take 1 tablet (600 mg total) by mouth every 6 (six) hours as needed for pain. (Patient not taking: Reported on 10/10/2023), Disp: 30 tablet, Rfl: 0 midazolam (NAYZILAM) 5 mg/spray (0.1 mL) spray,non-aerosol, Administer 5 mg into each nostril as needed (seizure activity)., Disp: , Rfl: ondansetron (ZOFRAN) 4 mg tablet, Take 1 tablet (4 mg total) by mouth daily as needed for nausea orvomiting., Disp: 30 tablet, Rfl: 1 UBRELVY 100 mg tablet, Take 1 tablet by mouth once as needed., Disp: , Rfl: REVIEW OF SYSTEMS: Review of Systems Constitutional: Negative for fever and chills. HENT: Positive for dental problem (missing teeth). Negative for congestion. Eyes: Negative for discharge and redness. Respiratory: Negative for cough and shortness of breath. Cardiovascular: Negative for chest pain. Gastrointestinal: Positive for abdominal pain. Negative for vomiting and diarrhea. Genitourinary: Positive for flank pain. Negative for dysuria, frequency and difficulty urinating. Skin: Negative for rash and wound. VITAL SIGNS: BP 111/73 Pulse 61 Temp (!) 35.8 C (96.4 F) (Temporal) Resp 16 Ht 159 cm (5' 2.6 ) Wt 46.3 kg (102 lb 1.2 oz) LMP 09/12/2023 Comment: has Nexplanon SpO2 100% BMI 18.31 kg/m PHYSICAL EXAM: Physical Exam Vitals reviewed. Constitutional: General: He is not in acute distress. HENT: Head: Normocephalic and atraumatic. Mouth/Throat: Dentition: Abnormal dentition (missing). Comments: Mallampati I Eyes: Conjunctiva/sclera: Conjunctivae normal. Cardiovascular: Rate and Rhythm: Normal rate and regular rhythm. Pulmonary: Effort: Pulmonary effort is normal. Breath sounds: Normal breath sounds. No wheezing. Abdominal: Palpations: Abdomen is soft. Tenderness: There is no abdominal tenderness. There is no right CVA tenderness, left CVA tendernessor guarding. Musculoskeletal: Cervical back: Neck supple. Skin: General: Skin is warm and dry. Neurological: Mental Status: He is alert and oriented to person, place, and time. Mental status is at baseline. Psychiatric: Mood and Affect: Mood normal. Behavior: Behavior normal. RECENT LABS: Lab Results Component Value Date WBC 5.4 08/26/2023 HGB 11.1 (L) 08/26/2023 HCT 33.1 (L) 08/26/2023 PLT 184 08/26/2023 SODIUM 141 08/26/2023 K 3.3 (L) 08/26/2023 CL 107 08/26/2023 CO2 27 08/26/2023 CALCIUM 8.5 08/26/2023 ALKPHOS 57 08/25/2023 ALBUMIN 4.7 08/25/2023 GLU 108 (H) 08/26/2023 HGBA1C 5.2 11/17/2021 ALT 11 08/25/2023 AST 34 08/25/2023 CREATININE 0.73 08/26/2023 BUN 8 08/26/2023 GFR >60 11/25/2021 GFR >60 11/25/2021 EGFR >90 08/26/2023 TSH 0.74 09/27/2023 *Please note that labs listed above are the most recent lab values available in [facility] at the time ofthe office visit and additional labs may have been drawn since that time. ASSESSMENT / DIAGNOSIS: Gross hematuria PLAN: Karis Kovacs is scheduled for cystoscopy retrograde pyelogram bilateral by Dr. Mckeon on 10/17/23. DAWSON Vazquez 10/10/23 1050 DAWSON Vazquez 10/10/23 1104 DAWSON Vazquez 10/10/23 1130 [facility] Instructions* Patient Instructions* Siobhan Cain RN - 10/10/2023 10:00 AM EDT SURGERY DATE:10-17-23 ARRIVAL TIME:7:00am [facility]: Entrance # 6 Outpatient Surgery Center next to the Emergency Center. Bring a photo ID and your insurance card with you the day of surgery. If you have a Living Will/Durable Power of Calender Let Off Helper for Health Care which is not on file, please bring a copy with you the day of surgery. Please shower morning of procedure DO NOT apply deodorant, powder, lotion, aftershave, perfume, make-up, nail welsh. HOLD ASPIRIN and ASPIRIN PRODUCTS for 7 days prior to surgery. IF you have been prescribed ASPIRIN by your Stamping Die Maker or primary care physician, CONTACT Stamping Die Maker or physician about holding aspirin for surgery. HOLD NSAIDs - Ibuprofen, Motrin, Aleve, Celebrex, mobic, meloxicam, etc. for 3 days prior to surgery. You may use Tylenol. HOLD vitamins, minerals, herbal supplements, and Holistic supplements for 7 days prior to surgery. Examples: Ephedra, garlic, gingko, ginseng, fish oil, (Lovaza, Vascepa), Kava, Vitamin E, Saw [place], Barbara's Wort, Maggie, Vitamin E). (exceptions - continue taking iron if you are anemic). NOTHING to EAT for 8 hours prior to surgery. You may have CLEAR LIQUIDS up to 4 hours prior to surgery. Clear liquids - something you can see through including: Water, apple juice, Gatorade. NO coffee or tea, NO milk or creamer, NO juice with pulp. If medication must be taken during this fasting period, take the medication with a tiny sip of water. MEDICATIONS to take the MORNING of surgery: Briviact, Ceftine,Clobazam,Lamictal, Midodrine If you use an INHALER, bring it with you the day of surgery. If you have a SPINAL CORD STIMULATOR, be sure remote is fully charged. BRING remote day of surgery. If you wear DENTURES, DO NOT use adhesive day of surgery. If you wear HEARING AIDS, WEAR THEM to pre-op on the day of surgery. If you use a C-pap or Bi-pap, you may bring it day of surgery. Choose a responsible adult to accompany you to the hospital that will be able to: -remain at the hospital during your procedure. -drive you home after your surgery. -stay with you in your home for 24 hours after your procedure. You must NOT drive any vehicle or operate any machinery for 24 hours OR until okay with surgeon. When you dress for your surgery, please wear loose fitting clothing appropriate for the surgical procedure. Do NOT wear jewelry or watches. ALL piercing's must be removed. Do NOT wear eye contacts to the hospital. Bring glasses if you need them. The anesthesiologist will talk to you the day of the surgery. You will be asked to sign an anesthesia consent form. documented in this encounterDayton Children's HospitalThe Vetted Net [facility] [phone] Miscellaneous Notes* Perioperative Nursing Note - Siobhan Cain RN - 10/10/2023 10:00 AM EDT Emailed Gayatri at Dr Mckeon's office of anesthesia's request for patient to have procedure at [facility]. documented in this [facility]04-[facility] Nurse Note* Perioperative Nursing Note - Siobhan Cain RN - 10/10/2023 10:00 AM EDT Emailed Gayatri at Dr Mckeon's office of anesthesia's request for patient to have procedure at [facility]. [facility]03-26-2024 History of Present illness Narrative* Jaja Rice APRN-AMELIA - 09/20/2023 11:00 AM EDT Images from the original note were not included. [facility] [address] [id number] Subjective Patient ID: Karis Kovacs is a 23 y.o. adult. Encounter Date: 09/20/2023 CHIEF COMPLAINT Chief Complaint Patient presents with Consult New patient , lumbar, x-rays HISTORY OF PRESENT ILLNESS Karis Kovacs is a [facility] patient [facility] who was referred in regards to lumbar back pain.Yonatan reported his pain started about 6 months ago and he does not recall an inciting injury or event. He is here today accompanied by his father. Yonatan states he has pain from between his shoulder blades down through his low back. The pain is central but does spread out into the paraspinal muscles. The pain also radiates into the lateral hipsin anterior legs to the top of the feet. He has numbness and tingling in all of his toes. He recently had kidney stones and had increased flank pain related to that but the back pain has persisted sonia n after he passed the stones. Location: lumbar spine Radiation: BLE Numbness/Paraesthesias:both feet Description: stabbing and throbbing Exacerbating factors: Activity, standing Alleviating Factors: None Functional impairment: None Severity: rates the pain 1-2/10 at its best and 9/10 at its worst. Duration/Initial inciting event: Symptoms have been present for 6 months. 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 Current and prior evaluation and treatments: -Medication trials for this problem: Tylenol - Alternative methods to treatment: None -Physical therapy/Home exercise program: None -career representative: None -Pain management: None -Pertinent spine surgeries/previous [...] past medical history, past social history, past surgicalhistory and problem list. PERTINENT IMAGING/DIAGNOSTIC TESTING X-ray [...] ossific abnormality with fairly unremarkable appearance of thelumbar spine within the limitations of this examination. Finalized by Nahun Strange MD on 09/20/2023 11:39 AM Ultrasound retroperitoneal complete Result Date: 09/12/2023 Narrative: US RETROPERITONEAL COMPLETE HISTORY: Left flank pain and hematuria COMPARISON: CT abdomen and pelvis 07/29/2023. Retroperitoneal ultrasound 07/26/2023 TECHNIQUE: Grayscale and color Doppler sonographic images of the urinary bladder and both kidneys. FINDINGS: Right kidney: * 9.7 x 5.2 x 5.1cm * Normal echogenicity. * Multiple echogenic foci [...] bladder measures 536 mL with mobile echogenic d ebris. Increased post void residual, measuring 347 mL. [...] to suggest ischemia. The susceptibility images do notdemonstrate evidence of hemosiderin deposition within the brain [...] From 3:15 until 13:00 on 08/26/23 Date ofReport: 08/26/23 Kendall Ceron MD EEG Video Monitoring Daily Result Date: 08/26/2023 Narrative: Images from the original result were not included. [facility] VIDEO-EEG REPORT EEG Service Date:From 3:15 until 13:00 on 08/26/23 Date of Report: 08/26/23 History: Karis Kovacs is a 23 y.o. right handed adult with a history of epilepsy, presents with breakthrough seizure, who is undergoingan EEG to evaluate for seizures and underlying epileptiform activity. Medications: Lamotrigine, Clobazam Level of Consciousness: Awake and asleep Duration of Study: 9 Hours and 37 minutes. Technical description: This EEG was acquired with electrodes placed according to the 10-20 electrode placementsystem. A single EKG channel was recorded for cardiac rhythm monitoring. Video was recorded simultan eously. Quality of recording was fair. Entire study was reviewed. EEG Report: Occipital dominant rhythm was seen as 10-11 Hz sinusoidal activity with amplitude of 25-50 V. This activity was sinusoidal in morphology, and was symmetric, and reactive to eye closure. Most of the awake background was com prised of intermittent alpha rhythms admixed with low amplitude fast rhythms. Focal slowing was notseen. Drowsiness and sleep states were seen, manifested [...] push button event at 8:53 for unclear reas on (likely accidental or subjective symptoms) EEG: Movement artifact, No epileptiform activity, Normal background Clinical: Unclear, on video review patient was initially drinking water then used hisphone, possibly accidental or subjective symptoms. EEG Classification: [...] seen. Carina Garcia MD Clinical Neurophysiology Fellow [facility] Teaching/Attending Physician Attestation: I have personally reviewed the entire record. I have reviewed and agree with the above documentation by the clinical neurophysiology fellow physician. Kendall Ceron MD, PhD Professor of Neurology Normal Background Push button event (unclear reason), No epileptiform activity Baseline Routine EEG Result Date: 08/26/2023 Narrative: Images from the original result were not included. [facility] VIDEO-EEG REPORT EEG Service Date:08/26/23 Date of Report: 08/26/23 History: Karis Kovacs is a 23 y.o. right handed adult with ahistory of epilepsy, presents with breakthrough seizure, who is undergoing an EEG to evaluate for seizures and underlying epileptiform activity. Medications: Lamotrigine, Clobazam and Briviact Level of Consciousness: Awake and asleep Duration of Study: 30 minutes Technical description: This EEG wasacquired with electrodes placed according to the 10-20 electrode placement system. A single EKG channel was recorded for cardiac rhythm monitoring. Video was recorded simultaneously. Quality of record ing was fair. Entire study was reviewed. EEG [...] eye blinks and EMG artifact, drop-off in PDR,consistent with stage N1 of NREM-sleep. Deeper stages of sleep were not recorded.. Activation Procedures: Photic stimulation and hyperventilation were performed, and did not elicit any abnormal responses.. Interictal epileptiform abnormalities: Interictal epileptiform discharges were not seen Events: No clinical or electrographic seizures were seen. EEG Classification: This EEG was obtained whileawake and asleep, and is normal. Clinical Correlation: This is a normal EEG recording. No epileptiform discharges or lateralizing signs were seen. Absence of epileptiform discharges does not exclude the diagnosis of epilepsy. Carina Garcia MD Clinical Neurophysiology Fellow [facility] Teaching/Attending Physician Attestation: I have personally [...] are unremarkable IMPRESSION: No acute fracture or subluxation.All CT scans at this facility use dose modulation, iterative reconstruction, and/or weight based dos ing when appropriate to reduce radiation dose to [...] aerated. No acute osseous abnormality in the visualizedskull base and calvarium. IMPRESSION: No acute intracranial pathology. All CT scans at this facility use dose modulation, iterative reconstruction, and/or weight based dosing when appropriate to reduce radiation dose to as low as reasonably achievable. Finalized by Jean Marie Araiza 08/25/2023 3:46 PM ALLERGIES Allergies Allergen Reactions [...] total) by mouth in the morning. 1999., Disp:, Rfl: lamoTRIgine (LaMICtal) 100 mg tablet, Take [...] kidney disease Diabetes mellitus type 2, controlled ([facility]) states diagnosed on Tuesday DUFFY (dyspnea on exertion) Epilepsy ([facility]) Gender dysphoria Head injury Panic disorder Seizures ([facility]) last seizure was [...] Nothing Listed Aggressive/Abusive/Inappropriate Behavior: No ASSESSMENT/ PLAN Karis Kovacs is a new patient to [facility] who was referred in regards to lumbar back pain.Yonatan reported his pain started about 6 months ago and he does not recall an inciting injury or event. He is here today accompanied by his father. Yonatan states he has pain from between his shoulder blades down through his low back. The pain is central but does spread out into the paraspinal muscles. The pain also radiates into the lateral hipsin anterior legs to the top of the feet. He has numbness and tingling in all of his toes. He recently had kidney stones and had increased flank pain related to that but the back pain has persisted sonia n after he passed the stones. Exam demonstrates [...] We will follow-up in 8 weeks for re- evaluation. If pain persists will consider MRI of [...] to the ER if these symptoms occur. TheOARRS/MAPPS database was reviewed today and found to [...] procedures Referring and communicating with other health hospice care consultant (not separately reported) Documenting clinical information in the electronic or other health record Independently interpreting results (not separately reported) and communicating results to the patient/family/caregiver Care coordination (not separately reported) Jaja Rice CNP [facility] This note was created with the assistance of a speech recognition program. While intending to generate a timely document that accurately reflects the content of the visit, no guarantee can be provided that every grammatical or spelling mistake has been or will be identified or corrected. Thank you for your understanding. MILAGROS Duffy 09/23/23 0806 documented in this [facility]03-26-2024 Instructions* Patient Instructions* MILAGROS Duffy - 09/20/2023 11:00 AM EDT Physical therapy, call to schedule Ibuprofen 600 mg every 8 hours as needed for pain Tizanidine 2 mg every 8 hours as needed for muscle spasms Follow up in 8 weeks * Attachments The following attachments cannot be sent through Care Everywhere. * Back Precautions (Yemeni) documented in this [facility]03-25-2024 History of Present illness Narrative* Nette Lackey MD - 09/19/2023 3:15 PM EDT Nexplanon Contraceptive Implant Insertion Note Karis Kovacs desires a Nexplanon implant insertion. She has been counseled regarding the risks, benefits and alternatives to the implant. She especially understands that her menstrual periods are expected to become irregular and unpredictable throughout the time she is using the implant. Shehas no contraindications to the insertion. Her questions have been answered. She has fully reviewedthe FDA-approved consent brochure, has signed the consent [...] contraceptive mere was inserted according to the precipitator supervisor's instructions without complications. The mere was palpable under the skin after the insertion. The insertion site was closed with steri strips; pressure dressing applied; instructions given to leave pressure dressing on for 24 hours and steri strips on for 4 days. Karis was given post-insertion instructions. She understands that the implant must be removed at the end of three years and may be removed sooner if she wishes. Orders Placed This Encounter Procedures POCT , urine VANESA HAILE CMA documented in this [facility] Miscellaneous Notes* Telephone Encounter - DAWSON Segura - 09/15/2023 5:59 PM EDT Please schedule him for cystoscopy/possible bilateral retrograde pyelograms under local anesthesia with Dr. Mckeon at [place]. Diagnosis: Gross hematuria, urinary retention * Telephone Encounter - Gayatri Durham - 09/15/2023 5:[address] MCKEON: PLEASE REVIEW AND ADVISE IF YOU WANT THIS CASE UNDER LOCAL OR [facility]. THANK YOU * Telephone Encounter - Debbie Mckeon MD - 09/15/2023 5:59 PM EDT mac documented in this encounterOhio [facility] Telephone encounter Note* Telephone Encounter - DAWSON Segura - 09/15/2023 5:59 PM EDT Please schedule him for cystoscopy/possible bilateral retrograde pyelograms under local anesthesia with Dr. Mckeon at [place]. Diagnosis: Gross hematuria, urinary retention [facility]03-21-2024 Telephone encounter Note* Telephone Encounter - Gayatri Durham - 09/15/2023 5:[address] MCKEON: PLEASE REVIEW AND ADVISE IF YOU WANT THIS CASE UNDER LOCAL OR MAC. THANK YOU [facility]03-21-2024 Telephone encounter Note* Telephone Encounter - Debbie Mckeon MD - 09/15/2023 5:59 PM EDT mac [facility]03-19-2024 History of Present illness Narrative* Nette Lackey MD - 09/13/2023 10:00 AM EDT Karis Kovacs is a 23 y.o.BIOLOGICAL female TRANSGENDER MALE BUT OFF OF TESTOSTERONE CYPRIONATE IM FOR PAST FEW MONTHS BECAUSE IT WAS EXACERBATING HIS SEIZURE ACTIVITY. Patient's last menstrualperiod was 09/12/2023.. ALSO PT SEX ACTIVE WITH 44 YO MALE AND NEEDS CONTRACEPTION. He presents Pt is here for referral for 2.8 cm left adnexal cyst from CT scan from 2-2 at [facility]. Reviewed contraceptive options with patient, including CHC [...] kidney disease Diabetes mellitus type 2, controlled ([facility]) states diagnosed on Tuesday DUFFY (dyspnea on exertion) Epilepsy ([facility]) Gender dysphoria Head injury Panic disorder Seizures ([facility]) last seizure was November 13 had 5-6+ seizures SVT (supraventricular tachycardia) Transgender Urinary tract infection Visual impairment SURGICAL HX Past Surgical History: Procedure Laterality Date BREAST SURGERY Bilateral 12/04/2020 mastectomy CYSTOSCOPY INSERTION STENT URETER Right 11/24/2021 Performed by Debibe Mckeon MD at [facility] CYSTOSCOPY REMOVAL STENT Right 12/09/2021 Performed by Debbie Mckeon MD at [facility] INSERTION LOOP RECORDER 08/03/2023 LASER HOLMIUM URETEROSCOPY RENAL STONES < OR=1CM Right 11/24/2021 Performed by Debbie Mckeon MD at [facility] Family History Problem Relation Age [...] Cyst of left ovary - [facility] - [facility] - [place], [place] - Consult LIKELY OVULATORY FOLLICULAR CYST FU PELVIC SONO NEXPLANON PLACEMENT SCHEDULED NEXT WEEK WILL PROVIDE OVULATORY SUPPRESSION AND CONTRACEPTION UPT TODAY AND RPT NEXT WEEK PRIOR TO INSERTION CONSIDER TESTOSTERONE PELLETS FOR FUTURE HRT URINARY RETENTION UNKNOWN ETIOLOGY--EST ETIOLOGY MD Francia MIMS LPN documented in this encounterOhio Valley Hospital03-13-[facility]24 Evaluation + Plan note* Assessment & Plan Note - DAWSON Segura - 09/07/2023 1:29 PM EDT Associated Problem(s): Right kidney stone We will have him meet with Dr. Mckeon to review the results from his fish/cytology testing. Hopefullywe will have the CT uploaded so he can review the films and get a better understanding of his stoneburden. We discussed repeat cystoscopy, but he does not have a smoking history and just underwent cystoscopy in 2021 while treating kidney stones. Whether or not repeat cystoscopy is necessary will be determined at the follow-up. [facility]03-13-2024 Miscellaneous Notes* Assessment & Plan Note - DAWSON Segura - 09/07/2023 1:29 PM EDTAssociated Problem(s): Right kidney stone We will have him meet with Dr. Mckeon to review the results from his fish/cytology testing. Hopefullywe will have the CT uploaded so he can review the films and get a better understanding of his stoneburden. We discussed repeat cystoscopy, but he does not have a smoking history and just underwent cystoscopy in 2021 while treating kidney stones. Whether or not repeat cystoscopy is necessary will be determined at the follow-up. documented in this encounterOhio Valley Hospital03-13-2024 History of Present illness Narrative* DAWSON Segura - 09/07/2023 1:00 PM EDT Images from the original note were not included. [address] [place] [address] [address] [facility] [id number] Patient: Karis Kovacs Date of : 2000 Encounter Date: 09/07/2023 History of Present Illness: Chief Complaint: follow-up The patient is a 23 y.o. adult, an established patient, and is here for follow- up. Please see his history below. We were able to get his records. Report from CT without contrast 05/12/2023 states that there were bilateral stones with the largest measuring 3.5 mm in the right kidney. Bladder was unremarkable. UAshowed 5-9 RBCs, 5-9 WBCs, 5-9 squamous epithelial [...] not address his issues. He went to [place] [facility] on 07/29/2023. Report from CT without contrast states that there were bilateral nonobstructing stones but no hydronephrosis. There was also mention of a 2.8 cm left adnexal cyst. UA showed 0-2 WBCs and 20-50 RBCs. He developed gross hematuria which was persistent for 1 week. This has since resolved. He never sawa stone pass. He continues to have left [...] records, but he reports that he went [facility] both for seizures and back pain. [...] No obvious ureteral stones. There appear to gail few small stones Urinalysis today: Recent Labs [...] past medical history, past social history, past surgicalhistory and problem list. Past Medical History: Diagnosis Date Anesthesia complication seizures Anxiety Arrhythmia Chronic kidney disease Diabetes mellitus type 2, controlled ([facility]) states diagnosed on Tuesday DUFFY (dyspnea on exertion) Epilepsy ([facility]) Gender dysphoria Head injury Panic disorder Seizures ([facility]) last seizure was November 13 had 5-6+ seizures SVT (supraventricular tachycardia) Transgender Urinary tract infection Visual impairment Past Surgical History: Procedure Laterality Date BREAST SURGERY Bilateral 12/04/2020 mastectomy CYSTOSCOPY INSERTION STENT URETER Right 11/24/2021 Performed by Debbie Mckeon MD at [facility] CYSTOSCOPY REMOVAL STENT Right 12/09/2021 Performed by Debbie Mckeon MD at [facility] LASER HOLMIUM URETEROSCOPY RENAL STONES < OR=1CM Right 11/24/2021 Performed by Debbie Mckeon MD at [facility] Family History Problem Relation Age of [...] low [facility] with [facility]; Future Cyst [facility] - [place], [place] - Consult; Future Gross hematuria - [...] center for the back pain. Referral to traffic controller cable for the ovarian cyst. Previous ultrasound showed retention, but PVR today is 71. 07/07/23: Bilateral back pain since Nov. No obvious ureteral stones on KUB. Will check renal US 11/24/21: Right ureteroscopy 10/15/21: Stones associated with right-sided flank pain as well as constitutional symptoms of malaise, poor appetite and p.o. intake, nausea. Stone is nonobstructing but may be causing pain due to infection orirritation. Admittedly his pain and constitutional symptoms may [...] if his symptoms should be not controlled outpatient,in particular inability to tolerate p.o. intake, fevers, chills, worsening flank pain. Current Assessment & Plan We will have him meet with Dr. Mckeon to review the results from his fish/cytology testing. Hopefullywe will have the CT uploaded so he can review the films and get a better understanding of his stoneburden. We discussed repeat cystoscopy, but he does [...] DAWSON Segura 09/07/23 1330 documented in this encounterOhio Valley Hospital02-20-2024 Miscellaneous Notes* Telephone Encounter - Renetta Rincon - 08/16/2023 9:34 AM EST This patient was scheduled to see you last week on 08/10/23 in [place]. We rescheduled his appointment to 09/07/23. He was okay with that but he wanted to let you know that he is still see's blood in his urine. I told him that I would relay that to you. * Telephone Encounter - DAWSON Seugra - 08/16/2023 9:34 AM EST Please apologize for me. Let him know I was out sick. Is he willing to come to [place] again I can squeeze him in at 11:45 sometime this week documented in this [facility] [place] [employer] [id number] Telephone encounter Note* Telephone Encounter - Renetta Rincon - 08/16/2023 9:34 AM EST This patient was scheduled to see you last week on 08/10/23 in [place]. We rescheduled his appointment to 09/07/23. He was okay with that but he wanted to let you know that he is still see's blood in his urine. I told him that I would relay that to you. [facility] Next 2 [id number] Telephone encounter Note* Telephone Encounter - DAWSON Segura - 08/16/2023 9:34 AM EST Please apologize for me. Let him know I was out sick. Is he willing to come to [place] again I can squeeze him in at 11:45 sometime this week [facility] History of Present illness Narrative* Lavonne Thomas NP - 08/10/2023 12:30 PM EST Seble Kovacs is a 23 y.o. female. TI Tam had been seizure free for two months, [...] and 5 mg in the evening and 5mg before bedtime., Disp: , Rfl: biotin 10 [...] Oriented to person, place and time. Recent andremote memory are intact. Speech is normal. Language [...] reflexes: Aj's absent. Ankle clonus absent. Coordination Gszial-id-vqsb, rapid alternating movements and wjiq-tu-seea normal bilaterally without dysmetria. Gait Normal casual, [...] head injury when Yonatan was 15 years oldwhich brought on Yonatan's seizures. Yonatan went almost [...] has neck pain and numbness to left armdue to cervical radiculopathy. I recommended biotin 100 mg daily Yonatan can buy on [employer] to treatment memory health and numbness. Migraines have not worsened and Imitrex aborts them. documented in this encounterMissouri Baptist Medical [id number] Miscellaneous Notes* Telephone Encounter - DAWSON Segura - 08/02/2023 2:34 PM EST Please call for an update. I see he went to the ER but it does not appear that they addressed the back pain? Is he still having back pain and saddle anesthesia? If so, he honestly needs to go back tohave that specifically addressed. If not, we should have him come in for an appointment within the next week or so for UA/PVR * Telephone Encounter - Joanne Bailey LPN - 08/02/2023 2:34 PM EST Pt states he went to [facility] after his 07/28/2023 ER visit and was told that he has an ovarian cyst and kidney stones. I called to request the records/images to PACS but had to [facility]. I alsosent a fax request. [facility] fax # [phone] * Telephone Encounter - DAWSON Segura - 08/02/2023 2:34 PM EST Tomas/Renetta: Can we get him for an appointment here or [place] in the next week or two? * Telephone Encounter - Tomas Varela CMA - 08/02/2023 2:34 PM EST Patient has been scheduled for next Tuesday in our [place] office. documented in this encounterOhio Valley Hospital02-06-2024 Telephone encounter Note* Telephone Encounter - DAWSON Segura - 08/02/2023 2:34 PM EST Please call for an update. I see he went to the ER but it does not appear that they addressed the back pain? Is he still having back pain and saddle anesthesia? If so, he honestly needs to go back tohave that specifically addressed. If not, we should have him come in for an appointment within the next week or so for UA/PVR [facility] Telephone encounter Note* Telephone Encounter - Joanne Bailey LPN - 08/02/2023 2:34 PM EST Pt states he went to [facility] after his 07/28/2023 ER visit and was told that he has an ovarian cyst and kidney stones. I called to request the records/images to PACS but had to [facility]. I alsosent a fax request. [facility] fax # [phone] [facility] Telephone encounter Note* Telephone Encounter - DAWSON Segura - 08/02/2023 2:34 PM EST Tomas/Renetta: Can we get him for an appointment here or [place] in the next week or two? [facility] Telephone encounter Note* Telephone Encounter - Tomas Varela CMA - 08/02/2023 2:34 PM EST Patient has been scheduled for next Tuesday in our [place] office. [facility]01-[facility] Evaluation + Plan note* Assessment & Plan Note - DAWSON Segura - 07/07/2023 12:47 PM ESTAssociated Problem(s): Right kidney stone We discussed CT [...] a referral to the spine care center. [facility] Miscellaneous Notes* Assessment & Plan Note - DAWSON Segura - 07/07/2023 12:47 PM ESTAssociated Problem(s): Right kidney stone We discussed CT [...] the spine care center. [facility] History of Present illness Narrative* DAWSON Segura - 07/07/2023 11:00 AM EST Images from the original note were not included. [address] [facility] [id number] Patient: Karis Kovacs Date of : 2000 Encounter Date: [...] records, but he reports that he went [facility] both for seizures and back pain. [...] No obvious ureteral stones. There appear to gail few small stones Urinalysis today: No results for input(s): EXTPOCURCO , EXTPOCURCH , EXTPOCAPP , EXTPOCURBS , EXTPOCURBIL , EXTPOCUKET , EXTPOCUSPG , EXTPOCUHGB , EXTPOCUPRO , EXTPOCUURO , EXTPOCULEU , EXTPOCUNIT , EXTPOCUWBC , EXTPOCUBLD , EXTPOCURBC , EXTPOCUCRY , EXTPOCUBAC , EXTPOCUTREP , EXTPOCUPH , EXTPOCUL EE in the last 72 hours. Last BUN and creatinine: Lab Results Component Value Date BUN 8 01/20/2023 Lab Results Component Value Date CREATININE 0.84 01/20/2023 Past Medical, Family, and Social History Update: The following portions of the patient's history were reviewed and updated as appropriate: allergies, current medications, past family history, past medical history, past social history, past surgicalhistory and problem list. Past Medical History: Diagnosis Date Anesthesia complication seizures Anxiety Arrhythmia Chronic kidney disease Diabetes mellitus type 2, controlled ([facility]) states diagnosed on Tuesday DUFFY (dyspnea on exertion) Epilepsy ([facility]) Gender dysphoria Head injury Panic disorder Seizures ([facility]) last seizure was November 13 had 5-6+ seizures SVT (supraventricular tachycardia) ([facility]) Transgender Urinary tract infection Visual impairment Past Surgical History: Procedure Laterality Date BREAST SURGERY Bilateral 12/04/2020 mastectomy CYSTOSCOPY INSERTION STENT URETER Right 11/24/2021 Performed by Debbie Mckeon MD at [facility] CYSTOSCOPY REMOVAL STENT Right 12/09/2021 Performed by Debbie Mckeon MD at [facility] LASER HOLMIUM URETEROSCOPY RENAL STONES < OR=1CM Right 11/24/2021 Performed by Debbie Mckeon MD at [facility] Family History Problem Relation Age of [...] total) by mouth in the morning and 1capsule (100 mg total) before bedtime. (Patient not taking: Reported on 01/22/2022) 14 capsule 0 ketorolac (TORADOL) 10 mg tablet Take 1 tablet (10 mg total) by mouth every 6 (six) hours as neededfor pain. (Patient not taking: Reported on 01/22/2022) [...] may be causing pain due to infection orirritation. Admittedly his pain and constitutional symptoms may [...] if his symptoms should be not controlled outpatient,in particular inability to tolerate p.o. intake, fevers, [...] DAWSON Segura 07/07/23 1248 documented in this encounterProctor HospitalChannelMeter [id number] Instructions* Patient Instructions* DAWSON Segura - 07/07/2023 11:00 AM EST I do not see any obvious stones on x-ray. There are some limitations with the study though, so to rule out your kidneys as the source of the pain, let us have you get an ultrasound. Call central scheduling at [phone] to schedule the ultrasound. I will watch for the results and will call when final. When you are at the hospital for the ultrasound, please leave a urine specimen at the lab. If the urine looks fine and the ultrasound shows the kidneys are draining well, it is unlikely that thekidneys are the source for your pain. He should then follow- up with your family doctor to see if there are non urologic sources for your pain. We could also consider a referral to the spine care center to investigate musculoskeletal sources for your symptoms Enriqueta: [phone] (Ext [phone]) -Tue [facility] Hospital Discharge instructions* Discharge Instructions* Stefanie Ortez MD - 02/06/2023 6:23 PM EDT [...] or any other concerns. [facility] History of Past illness Narrative* Problem Noted Date Resolved Date Acute post-traumatic [...] of this encounter (statuses as of 04/09/2022) [facility] assessment information availableGreene [facility] Work Phone: Evaluation note* Diagnosis Seizure (HCC) Other convulsions documented [facility]* Diagnosis Intractable complex partial epilepsy (CMS/HCC)- Primary Cervical radiculopathy Brachial neuritis or radiculitis nos Insomnia due to medical condition Organic insomnia, unspecified Migraine without aura and without status migrainosus, not intractable (CMS/HCC) Memory loss Neck pain Cervicalgia Cervical paraspinal muscle spasm Spasm of muscle [facility]* Diagnosis Seizure-like activity (HCC)- Primary Other convulsions [facility] Diagnosis Onset Date Resolution Status Constipation acute Loss of appetite acute Nausea acute Weight loss, abnormal acute [facility] Work Phone: Evaluation note* Diagnosis Seizure-like [...] Psychogenic nonepileptic seizure [facility]* Diagnosis Acne vulgaris- Primary Other acne Telogen effluvium documented [facility]* Diagnosis ADD (attention deficit disorder) without hyperactivity Attention deficit disorder without mention of hyperactivity documented in this encounter [facility]* Diagnosis ADD (attention deficit disorder) without hyperactivity- Primary Attention deficit disorder without mention of hyperactivity Intractable chronic migraine without aura and without status migrainosus (CMS/HCC) Intractable complex partial epilepsy (CMS/HCC) documented in this encounter [facility]* Diagnosis 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, intractable (CMS/HCC) Localization-related (focal) (partial) epilepsy and epileptic syndromes with simple partial seizures, with intractable epilepsy Epilepsy, 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CMS/HCC) documented in this encounter [facility]* Diagnosis Intractable chronic migraine without aura and without status migrainosus (CMS/HCC)- Primary documented in this encounter [facility]* Diagnosis ADD (attention deficit disorder) without hyperactivity Attention deficit disorder without mention of hyperactivity Insomnia due to medical condition Organic insomnia, unspecified Seizure disorder (CMS/HCC) Unspecified epilepsy without mention of intractable epilepsy Primary insomnia Persistent disorder of initiating or maintaining sleep documented in this encounter [facility]* Diagnosis 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* Diagnosis Right kidney stone- Primary Right kidney stone- Primary Chronic bilateral low back pain with bilateral sciatica Cyst of left ovary Other and unspecified ovarian cyst Gross hematuria Right kidney stone- Primary Epilepsy, 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CMS-HCC) [facility]* Diagnosis ADD (attention deficit disorder) without hyperactivity Attention deficit disorder without mention of hyperactivity documented in this encounter [facility]* Diagnosis Seizure disorder (CMS/HCC)- Primary Unspecified epilepsy without mention of intractable epilepsy documented in this encounter [facility]* Diagnosis Right kidney stone- Primary Right kidney stone- Primary Chronic bilateral low back pain with bilateral sciatica Cyst of left ovary Other and unspecified ovarian cyst Gross hematuria Hematuria, unspecified type- Primary documented in this encounter [facility]* Diagnosis Seizure-like activity (HCC)- [...] aversion Abnormal weight loss Loss of weight Mild protein-calorie malnutrition (HCC) Malnutrition of mild degree [facility]* Diagnosis Intractable complex partial epilepsy (CMS/HCC) documented [facility] encounter [facility]* Diagnosis Acne vulgaris- Primary Other acne documented in this encounter [facility]* Diagnosis Right kidney stone- Primary [facility]* Diagnosis Right kidney stone- Primary Right kidney stone- Primary Chronic bilateral low back pain with bilateral sciatica Cyst of left ovary Other and unspecified ovarian cyst Gross hematuria Dysuria- Primary documented [facility]* Diagnosis Right kidney stone Muscle spasm- Primary Spasm of muscle Chronic bilateral low back pain, unspecified whether sciatica present Low back pain, unspecified back pain laterality, unspecified chronicity, unspecified whether sciatica present documented [facility]* Diagnosis Muscle spasm- Primary Spasm of muscle Chronic bilateral low back pain without sciatica Chronic bilateral low back pain with bilateral sciatica Low back pain, unspecified back pain laterality, unspecified chronicity, unspecified whether sciatica present documented [facility]* Diagnosis Neck pain- Primary Cervicalgia [facility] Diagnosis Right kidney stone- Primary Chronic bilateral low back pain with bilateral sciatica Cyst of left ovary Other and unspecified ovarian cyst Gross hematuria [facility]* Diagnosis Low back pain, unspecified back pain laterality, unspecified chronicity, unspecified whether sciatica present- Primary [facility]* Diagnosis Right kidney stone Irregular menstrual cycle- Primary Cyst of left ovary Other and unspecified ovarian cyst [facility]* Diagnosis Right kidney stone Encounter for initial prescription of implantable subdermal contraceptive- Primary [facility]* Diagnosis Right kidney stone Muscle spasm- Primary Spasm of muscle Chronic bilateral low back pain, unspecified whether sciatica present [facility]* Diagnosis Right kidney stone Gross hematuria- Primary Pre-op testing- Primary Unspecified pre-operative examination Gross hematuria Gross hematuria [facility]* Diagnosis Abnormal uterine bleeding (AUB)- Primary [facility]* Diagnosis Feeling of incomplete bladder emptying- Primary Epilepsy, 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) [facility]* Diagnosis Acne vulgaris- Primary Other acne [facility] Diagnosis Seizure-like activity (HCC)- Primary Other [...] type Panic attacks Panic disorder without agoraphobia Type 2 diabetes mellitus without retinopathy (HCC)- Primary Type II or unspecified type diabetes mellitus without mention of complication, not stated as uncontrolled Vision changes Unspecified visual disturbance Myopia, bilateral Myopia [facility]* Diagnosis ADD (attention deficit disorder) without hyperactivity Attention deficit disorder without mention of hyperactivity [facility]* Diagnosis Psychogenic nonepileptic seizure- Primary Migraine without aura and without status migrainosus, not intractable Chronic insomnia Insomnia, unspecified documented in this encounter [facility] Discharge instructions Additional Instructions If your symptoms return/worsen or you develop any further concerns or symptoms please see your doctor or return to the emergency department immediately.[facility] Work Phone: Hospital Discharge instructions Additional Instructions Follow-up with primary care doctor Return to ED if develop worsening symptoms or concernsGreene Memorial Hospital Work Phone: Hospital Discharge instructionsGreene Memorial Hospital Work Phone: Hospital Discharge instructions Additional Instructions Continue current [facility] Work Phone: Hospital Discharge instructions Additional [...] pain, urinary complaints, nausea, vomiting.[facility] Work Phone: Hospital Discharge instructions Additional Instructions If your symptoms return/worsen or you develop any further concerns or symptoms please see your doctor or return to the emergency department immediately. Please be sure to follow-up with your neurologist.[facility] Work Phone: Hospital Discharge instructions Additional Instructions Continue your medication as prescribed Increase oral fluids Follow-up with your neurologist Return to the ER for uncontrolled seizures seizures lasting longer than 5 minutes fever or any other concernsGreene Memorial Hospital Work Phone: Hospital Discharge instructionsAmbulatory Orders* Referral to Endocrinology Time Frame: 04/02/24, Location: None Selected [facility] Work Phone: InstructionsNot on filedocumented in [...] By Carlos A boyle Referred To Contact Pain Medicine Diagnoses Chronic bilateral low back pain with bilateral sciatica Muscle spasm Chronic bilateral low back pain, unspecified whether sciatica present Low back pain, unspecified back pain laterality, unspecified chronicity, unspecified whether sciatica present Jaja Rice APRN-CNP [address] [place] [address] [facility] [address] [place] [address] Referral ID Status Reason Start Date Expiration Date Visits Requested Visits Authorized [id number] Pending Review Specialty Services Required 11/15/2023 11/14/2024 1 1 [facility] (n[facility])* Consultation (Routine) - Pending Review Specialty Diagnoses / Procedures Referred By Contac t Referred To Contact Obstetrics and Gynecology Diagnoses Cyst of left ovary Enriqueta Tse PA [facility] [place] [address] [facility] [address] [place] [address] Referral ID Status Reason Start Date Expiration Date Visits Requested Visits Authorized [id number] Pending Review Specialty Services Required 09/07/2023 09/06/2024 1 1 * Consultation (Routine) - Pending Review Specialty Diagnoses / Procedures Referred By Contac t Referred To Contact Spine Care Diagnoses Chronic bilateral low back pain with bilateral sciatica Enriqueta Tse PA [address] [place] [address] [facility] [address] [address] Referral ID Status Reason Start Date Expiration Date V isits Requested Visits Authorized [id number] Pending Review 09/07/2023 09/06/2024 1 1 [facility] Summary Purpose Family History No Family History Records Found Relationship Condition Age at Onset Recorded Date/T nain Not Specified No pertinent family history Unknown Advance Directives No Advanced Directives Records Found Advance Directive Response Recorded Date/ Time Advance Directives Yes January 05 1:48pm Documents on File Type Date Recorded 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 Advance Directive(s) 11/25/2020 10:24 AM [...] Documents on File Type Date Recorded 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 Advance Directive(s) 11/25/2020 10:24 AM Date Activated Date Inactivated Comments 11/25/2023 2:59 PM 12/01/2023 1:25 AM Date Activated Date Inactivated Comments 08/26/2023 2:31 AM 08/26/2023 4:26 PM Date Activated Date Inactivated Comments 08/25/2023 6:03 PM 08/26/2023 12:43 AM Date Activated Date Inactivated Comments 08/26/2023 2:31 AM 08/26/2023 4:26 PM Date Activated Date Inactivated Comments 08/25/2023 6:03 PM 08/26/2023 12:43 AM Date Activated Date Inactivated Comments 08/26/2023 2:31 AM 08/26/2023 4:26 PM Date Activated Date Inactivated Comments 08/25/2023 6:03 PM 08/26/2023 12:43 AM Date Activated Date Inactivated Comments 11/25/2023 2:59 PM 12/01/2023 1:25 AM Date Activated Date Inactivated Comments 08/26/2023 2:31 AM 08/26/2023 4:26 PM Date Activated Date Inactivated Comments 08/25/2023 6:03 PM 08/26/2023 12:43 AM Latest [...] Code 08/25/2023 6:03 PM 08/26/2023 12:43 AM Chief [...] Loss of appetite Nausea Weight loss, abnormal Chief Complaint Admit Date 3 month follow up September 27, 2024 1:11 pm Chief Complaint Admit Date 3 month follow up September 27, 2024 1:11 pm nausea/vomiting October 15, 2024 12: 08pm nausea/vomiting October 15, 2024 2:1 1pm Reason for Visit Admit Date Abdominal pain September 27, 2024 1:11 pm Nausea & vomiting September 27, 2024 1:11 pm Weight loss, abnormal September 27, 2024 1: 11pm Chief Complaint Admit Date 3 month follow up September 27, 2024 1:11 pm nausea/vomiting October 15, 2024 12: 08pm nausea/vomiting October 15, 2024 2:1 1pm R11.2 E10.9 November 01, 2024 6:52am Reason for Referral Specialty Diagnoses / Procedures [facility] Referred To Contact Neurology Diagnoses Seizure (HCC) Stefanie Ortez MD [address] [place] [address] Caleb Easton MD [address] [place] [address] Referral ID Status Reason Start Date Expiration Date V isits Requested Visits Authorized [id number] Open Specialty Services Required 02/06/2023 08/05/2023 1 [...] Diagnoses Intractable complex partial epilepsy (CMS/HCC) Lavonne Thomas NP [address] [place] [address] Referral ID Status Reason Start Date Expiration Date Visits Re quested Visits Authorized [id number] Closed 1 1 Specialty Diagnoses / Procedures Referred By Contac t Referred To Contact Diagnoses Other specified diabetes mellitus with other specified complication, without long-term current use of insulin ([facility]) Sensory food aversion Abnormal weight loss Mild protein-calorie malnutrition (HCC) Procedures ENDOCRINOLOGY DIETITIAN VISIT (MNT) MEDICAL NUTRITION ASSMT&IVNTJ INDIV EACH 15 [place] MEDICAL NUTRITION ASSMT&IVNTJ INDIV EACH 15 [place] MEDICAL NUTRITION ASSMT&IVNTJ INDIV EACH 15 [place] MEDICAL NUTRITION ASSMT&IVNTJ INDIV EACH 15 [place] Gale Bassett APRN.INDUSTRIAL CLEANING TECHNICIAN [address] [address] Referral ID Status Reason Start Date Expiration Date Visits Requested Visits Authorized [id number] Authorized PCP Requested Referral 4 04/16/2025 1 1 Specialty Diagnoses / Procedures Referred By Contac t Referred To Contact Ophthalmology Diagnoses Mild protein-calorie malnutrition (HCC) Vision changes Procedures CONSULT TO OPHTHALMOLOGY OFFICE/OUTPATIENT [facility] 60 MINUTES Gale Bassett, ROSA.INDUSTRIAL CLEANING TECHNICIAN [address] [place] [address] Referral ID Status Reason Start Date Expiration Date Visits Requested Visits Authorized [id number] Authorized PCP Requested Referral 4 06/18/2025 1 1 Specialty Diagnoses / Procedures Referred By Contac t Referred To Contact Radiology Diagnoses Chronic bilateral low back pain without sciatica Chronic bilateral low back pain with bilateral sciatica Procedures MR lumbar spine without contrast Jaja Rice, ROSAINDUSTRIAL CLEANING TECHNICIAN [address] [place] [address] Referral ID Status Reason Start Date Expiration Date V isits Requested Visits Authorized [id number] Pending Review 12/28/2023 12/27/2024 1 1 Specialty Diagnoses / Procedures Referred By Contac t Referred To Contact Rehabilitation Diagnoses Chronic bilateral low back pain with bilateral sciatica Muscle spasm Jaja Rice, LABORATORY MONITOR-INDUSTRIAL CLEANING TECHNICIAN [address] [place] [address] Referral ID Status Reason Start Date Expiration Date Visits Requested Visits Authorized [id number] Pending Review Specialty Services Required 09/20/2023 03/22/2024 1 1 Additional Source Comments INFORMATION SOURCE (unrecogn ized section and content) DATE CREATED AUTHOR 09/02/2018 [facility] DATE CREATED AUTHOR AUTHOR'S ORGANIZ ATION 10/20/2018 [facility] DATE CREATED AUTHOR AUTHOR'S ORGANIZ ATION 03/24/2021 [facility] DATE CREATED AUTHOR AUTHOR'S ORGANIZ ATION 09/16/2021 [facility] DATE CREATED AUTHOR AUTHOR'S ORGANIZ ATION 09/28/2022 [facility] DATE CREATED AUTHOR AUTHOR'S ORGANIZ ATION 02/06/2023 [facility] DATE CREATED AUTHOR AUTHOR'S ORGANIZ ATION 12/10/2023 [facility] DATE CREATED AUTHOR AUTHOR'S ORGANIZ ATION 05/01/2024 [facility] DATE CREATED AUTHOR AUTHOR'S ORGANIZ ATION 07/07/2024 [facility] DATE CREATED AUTHOR AUTHOR'S ORGANIZ ATION 08/18/2024 [facility] DATE CREATED AUTHOR AUTHOR'S ORGANIZ ATION 09/05/2024 [facility] DATE CREATED AUTHOR AUTHOR'S ORGANIZ ATION 10/09/2024 [facility] DATE CREATED AUTHOR AUTHOR'S ORGANIZ ATION 11/03/2024 [facility] DATE CREATED AUTHOR AUTHOR'S ORGANIZ ATION 11/22/2024 [facility] DATE CREATED AUTHOR AUTHOR'S ORGANIZ ATION 12/14/2024 [facility] DATE CREATED AUTHOR AUTHOR'S ORGANIZ ATION 12/17/2024 [facility] DATE CREATED AUTHOR AUTHOR'S ORGANIZ ATION 12/20/2024 [facility] Care Teams (unrecognized sec tion and content) Team Status: Active Member Role Status Dates Kavin French DO Primary Care Provider Active Team Status: Active Member Role Status Dates NON STAFF Primary Care Provider Active Start: August 15, 2024 Won Ramhan DO Attending Provider Active Sta rt: August 15, 2024 Team Status: Inactive Member Role Status Dates NON STAFF Primary Care Provider Active Start: September 27, 2024 End: September 27, 2024 Tana Solis DO Attending Provider Active St art: September 27, 2024 End: September 27, 2024 Team Status: Inactive Member Role Status Dates Tana Solis , DO Attending Provider Active St art: October 15, 2024 End: October 15, 2024 Kavin French , Primary Care Provider Active Start: October 15, 2024 End: October 15, 2024 Team Status: Active Member Role Status Dates Tana Pitt Ly , DO Attending Provider, Other Provider Active Start: October 15, 2024 Kavin French , Primary Care Provider Active Start: October 15, 2024 Team Status: Active Member Role Status Dates NON STAFF Primary Care Provider Active Team Status: Active Member Role Status Dates NON STAFF Primary Care Provider Active Start: January 29, 2024 Won Rahman DO Attending Provider Active Sta rt: January 29, 2024 Team Status: Inactive Member Role Status Dates NON STAFF Primary Care Provider Active Start: April 02, 2024 End: April 02, 2024 Tana Pitt Ly , DO Attending Provider Active St art: April 02, 2024 End: April 02, 2024 Lavonne Thomas , LABORATORY MONITOR SAILMAKER-C Referring Provider Active Start: April 02, 2024 End: April 02, 2024 Team Status: Inactive Member Role Status Dates Tommy Bowen DO Emergency Provider Active Kavin French , Primary Care Provider Active Team Status: Inactive Member Role Status Jo Ann French , Primary Care Provider Active Bobby Rojas DO Emergency Provider Active Team Status: Inactive Member Role Status Jo Ann French , Primary Care Provider Active Roberto Whittaker DO Emergency Provider Active Team Status: Inactive Member Role Status Jo Ann French , Primary Care Provider Active Som Fiore DO Emergency Provider Active Team Status: Inactive Member Role Status Jo Ann French , Primary Care Provider Active Los Mcnally DO Emergency Provider Active Team Status: Inactive Member Role Status Jo Ann French , Primary Care Provider Active Pipe Jose MD Emergency Provider Active Audio/Visual Operator Relationship Specialty Start Date End Kavin French . [address] [place] [address] PCP - General Family Medicine 03/29/19 Team Status: Inactive Member Role Status Jo Ann Fiore DO Emergency Provider Active Kavin French , Primary Care Provider Active Brandon Verde DO RES Active Team Status: Inactive Member Role Status Dates Los Mcnally , DO Emergency Provider Active Kavin House , DO Primary Care Provider Active Aman Cortes , DO RES Active Team Status: Inactive Member Role Status Dates Kavin Gillian , DO Primary Care Provider Active Attila Nelson , DO Emergency Provider Active Team Status: Inactive Member Role Status Dates Roberto Whittaker , DO Emergency Provider Active Kavin Gillian , DO Primary Care Provider Active Team Status: Inactive Member Role Status Dates Shanelle Bowen PA-C Emergency Provider Active Kavin French , DO Primary Care Provider Active Team Status: Inactive Member Role Status Dates Kavin Gillian , DO Primary Care Provider Active Federica Wolfe , [facility] Emergency Provider Active Audio/Visual Operator Relationship Specialty Start Date End Date Kavin French Sr., DO [address] [place] [address] PCP - General Family Medicine 07/17/17 Team Status: Inactive Member Role Status Dates Kavin French , DO Primary Care Provider Active Margarita Gallo MD RES Active Milton Rivera , ZEYAD Emergency Provider Active Team Status: Inactive Member Role Status Dates Pipe Jose MD Emergency Provider Active NON STAFF Primary Care Provider Active Team Status: Inactive Member Role Status Dates Som Fiore , DO Emergency Provider Active NON STAFF Primary Care Provider Active Audio/Visual Operator Relationship Specialty Start Date End Date Kavin French MD [address] [place] [address] PCP - General Family Medicine 02/11/23 Audio/Visual Operator Relationship Specialty Start Date End Date Kavin French Sr., DO [address] [place] [address] PCP - General Family Medicine 07/17/17 Audio/Visual Operator Relationship Specialty Start Date End Date Kavin French Sr., DO [address] [place] [address] PCP - General Family Medicine 07/17/17 Audio/Visual Operator Relationship Specialty Start Date End Date Kavin French Sr., DO PCP - [facility] 03/29/19 Audio/Visual Operator Relationship Specialty Start Date End Date Kavin French Sr., DO PCP - [facility] 03/29/19 Audio/Visual Operator Relationship Specialty Start Date End Date Kavin French MD [address] [place] [facility] [place] [address] PCP - [facility] 02/11/23 Lavonne Thomas, SAILMAKER [address] [place] [address], [place] [address] PCP - [facility] 12/26/23 Audio/Visual Operator Relationship Specialty Start Date End Date Kavin French MD [address] [place] [facility] [address] PCP - [facility] 02/11/23 Lavonne Thomas SAILMAKER [address] [place] [address] PCP - [facility] 12/26/23 Audio/Visual Operator Relationship Specialty Start Date End Date Kavin French Sr., DO PCP - [facility] 03/29/19 Audio/Visual Operator Relationship Specialty Start Date End Date Kavin French MD [address] [place] [facility] [place] [address] PCP - [facility] 02/11/23 Lavonne Thomas SAILMAKER [address] [facility] [place] [address] PCP - [facility] 12/26/23 Audio/Visual Operator Relationship Specialty Start Date End Date Kavin French MD [address] [facility] [place] [address] PCP - [facility] 02/11/23 Lavonne Thomas NP [address] [place] [address] PCP - [facility] 12/26/23 Audio/Visual Operator Relationship Specialty Start Date End Date Kavin French MD [address] [place] [address] PCP - [facility] 02/11/23 Lavonne Thomas NP [address] [place] [address], [place] [address] PCP - [facility] 12/26/23 Audio/Visual Operator Relationship Specialty Start Date End Date Kavin French MD [address] [place] [address] PCP - [facility] 02/11/23 Lavonne Thomas NP [address] [place] [address] [facility] 12/26/23 Audio/Visual Operator Relationship Specialty Start Date End Date Kavin French MD [address] [place] [address], [place] [address] PCP - [facility] 02/11/23 Lavonne Thomas NP [address] [place] [address], [place] [address] PCP - [facility] 12/26/23 Audio/Visual Operator Relationship Specialty Start Date End Date Kavin French MD [address] [facility] [place] [address] PCP - General Family Medicine 02/11/23 Lavonne Thomas NP [address] [place] [address], [place] [address] PCP - [facility] 12/26/23 Audio/Visual Operator Relationship Specialty Start Date End Date Kavin French MD [address] [facility] [place] [address] PCP - General [facility] 02/11/23 Lavonne Thomas NP [address] [place] [address], [place] [address] PCP - [facility] 12/26/23 Audio/Visual Operator Relationship Specialty Start Date End Date Kavin French MD [address] [place] [address] PCP - General Family [facility] 02/11/23 Lavonne Thomas NP [address] [place] [address], [place] [address] PCP - [facility] 12/26/23 Audio/Visual Operator Relationship Specialty Start Date End Date Kavin French Sr., DO PCP - General Family Medicine 03/29/19 Audio/Visual Operator Relationship Specialty Start Date End Date Kavin French Sr., DO PCP - General Family Medicine 03/29/19 Audio/Visual Operator Relationship Specialty Start Date End Date Kavin French Sr., PCP - [facility] 03/29/19 Audio/Visual Operator Relationship Specialty Start Date End Date Kavin French DO [address] [place] [address] PCP - [facility] 01/06/24 Audio/Visual Operator Relationship Specialty Start Date End Date Kavin French MD [address] [place] [address] PCP - General [facility] 02/11/23 Lavonne Thomas NP [address] [place] [address] PCP - [facility] 12/26/23 Audio/Visual Operator Relationship Specialty Start Date End Date Kavin French MD [address] [place] [address] PCP - [facility] 02/11/23 Lavonne Thomas NP [address] [place] [address] PCP - [facility] 12/26/23 Audio/Visual Operator Relationship Specialty Start Date End Date Kavin French DO [address] [place] [address] PCP - General [facility] 01/06/24 Audio/Visual Operator Relationship Specialty Start Date End Date Kavin French Sr., PCP - General Family [facility] 03/29/19 Audio/Visual Operator Relationship Specialty Start Date End Date Kavin French MD [address] [place] [address] PCP - General Family [facility] 02/11/23 Lavonne Thomas NP [address] [facility] [address] [place] [address] PCP - [facility] 12/26/23 Audio/Visual Operator Relationship Specialty Start Date End Date Kavin French MD [address] [place] [address] PCP - General [facility] 02/11/23 Lavonne Thomas NP [address] [place] [address] PCP - [facility] 12/26/23 Audio/Visual Operator Relationship Specialty Start Date End Date Kavin French MD [address] [place] [address] PCP - General [facility] 02/11/23 Lavonne Thomas NP [address] [place] [address] PCP - [facility] 12/26/23 Audio/Visual Operator Relationship Specialty Start Date End Date Kavin French DO [address] [place] [address] PCP - General [facility] 03/12/20 Audio/Visual Operator Relationship Specialty Start Date End Date Kavin French DO [address] [place] [address] PCP - General Family Medicine 03/12/20 Audio/Visual Operator Relationship Specialty Start Date End Date Kavin French DO [address] [place] [address] PCP - General Family Medicine 01/06/24 Audio/Visual Operator Relationship Specialty Start Date End Date Kavin French DO [address] [place] [address] PCP - General Family Medicine 03/12/20 Audio/Visual Operator Relationship Specialty Start Date End Date Kavin French DO [address] [place] [address] PCP - General Family Medicine 03/12/20 Audio/Visual Operator Relationship Specialty Start Date End Date Kavin French DO [address] [place] [address] PCP - General Family Medicine 03/12/20 Audio/Visual Operator Relationship Specialty Start Date End Date Kavin French DO [address] [place] [address] PCP - General Family Medicine 03/12/20 Audio/Visual Operator Relationship Specialty Start Date End Date Kavin French DO [address] [place] [address] PCP - General Family Medicine 03/12/20 Audio/Visual Operator Relationship Specialty Start Date End Date Kavin French DO [address] [place] [address] PCP - General Family Medicine 03/12/20 Audio/Visual Operator Relationship Specialty Start Date End Date Kavin French DO [address] [place] [address] PCP - General Family Medicine 03/12/20 Audio/Visual Operator Relationship Specialty Start Date End Date Kavin French DO [address] [place] [address] PCP - General Family Medicine 03/12/20 Audio/Visual Operator Relationship Specialty Start Date End Date Kavin French DO [address] [place] [address] PCP - General Family Medicine 03/12/20 Audio/Visual Operator Relationship Specialty Start Date End Date Kavin French DO [address] [place] [address] PCP - General Family Medicine 03/12/20 Audio/Visual Operator Relationship Specialty Start Date End Date Kavin French DO [address] [place] [address] PCP - General Family Medicine 03/12/20 Audio/Visual Operator Relationship Specialty Start Date End Date Kavin French DO [address] [place] [address] PCP - General Family Medicine 03/12/20 Audio/Visual Operator Relationship Specialty Start Date End Date Kavin French DO [address] [place] [address] PCP - General Family Medicine 03/12/20 Audio/Visual Operator Relationship Specialty Start Date End Date Kavin French MD [address] [place] [address] PCP - General Family Medicine 02/11/23 Lavonne Thomas, SAILMAKER [address] [place] [address] PCP - [facility] 12/26/23 Audio/Visual Operator Relationship Specialty Start Date End Date Kavin French DO [address] [place] [address] PCP - [facility] 08/16/24 Audio/Visual Operator Relationship Specialty Start Date End Date Kavin French DO [address] [place] [address] PCP - General [facility] 08/16/24 Audio/Visual Operator Relationship Specialty Start Date End Date Kavin French MD [address] [place] [address] PCP - [facility] 02/11/23 Lavonne Thomas, SAILMAKER [address] [facility] [address] [place] [address] PCP - [facility] 12/26/23 Team Status: Active Member Role Status Dates NON STAFF Primary Care Provider Active Start: July 08, 2024 Won Rahman DO Attending Provider Active Sta rt: July 08, 2024 Audio/Visual Operator Relationship Specialty Start Date End Date Kavin French Sr., DO PCP - General Family Medicine 03/29/19 Audio/Visual Operator Relationship Specialty Start Date End Date Kavin French DO [address] [place] [address] PCP - General Family Medicine 08/16/24 Audio/Visual Operator Relationship Specialty Start Date End Date Kavin French DO [address] [place] [address] PCP - General Family Medicine 08/16/24 Team Status: Inactive Member Role Status Dates Kavin French DO Primary Care Provider Active Start: November 01, 2024 End: November 01, 2024 Tana Solis DO Attending Provider Active St art: November 01, 2024 End: November 01, 2024 Audio/Visual Operator Relationship Specialty Start Date End Date Kavin French MD [address] [place] [address] PCP - General Family Medicine 02/11/23 Lavonne Thomas NP [address] [facility] [address] [address] PCP - [facility] 12/26/23 Goals (unrecognized section and content) Goals [...] or prosecute any alcohol or drug abuse patient.[facility] the event this information is protected by the Federal Confidentiality of Alcohol and Drug Abuse Patient Records regulations: The Federal rules restrict any use of the information to criminally investigate or prosecute any alcohol or drug abuse patient.[facility] the event this information is protected by the Federal Confidentiality of Alcohol and Drug Abuse Patient Records regulations: The Federal rules restrict any use of the information to criminally investigate or prosecute any alcohol or drug abuse patient.[facility] the event this information is protected by the Federal Confidentiality of Alcohol and Drug Abuse Patient Records regulations: The Federal rules restrict any use of the information to criminally investigate or prosecute any alcohol or drug abuse patient.[facility] the event this information is protected by the Federal Confidentiality of Alcohol and Drug Abuse Patient Records regulations: The Federal rules restrict any use of the information to criminally investigate or prosecute any alcohol or drug abuse patient.[facility] the event this information is protected by the Federal Confidentiality of Alcohol and Drug Abuse Patient Records regulations: The Federal rules restrict any use of the information to criminally investigate or prosecute any alcohol or drug abuse patient.[facility] Hospital[facility] the event this information is protected by the Federal Confidentiality of Alcohol and Drug Abuse Patient Records regulations: The Federal rules restrict any use of the information to criminally investigate or prosecute any alcohol or drug abuse patient.[facility] Hospital[facility] the event this information is protected by the Federal Confidentiality of Alcohol and Drug Abuse Patient Records regulations: The Federal rules restrict any use of the information to criminally investigate or prosecute any alcohol or drug abuse patient.[facility] Hospital[facility] the event this information is protected by the Federal Confidentiality of Alcohol and Drug Abuse Patient Records regulations: The Federal rules restrict any use of the information to criminally investigate or prosecute any alcohol or drug abuse patient.[facility] the event this information is protected by the Federal Confidentiality of Alcohol and Drug Abuse Patient Records regulations: The Federal rules restrict any use of the information to criminally investigate or prosecute any alcohol or drug abuse patient.[facility] Reason for Visit (unrecogniz ed section and content) Reason Comments Seizures Pt has hx of epileps y, pt has had 14 seizures today Reason Comments Seizures Hx of was just admit manjula to [facility] for seizures sent to [facility], had 2 seizures there, on 3 different meds took all meds today Head Injury Hit head on left reina e, Reason Comments Diabetes Reason Comments Follow-up Reason Comments Question dexcom 7 Reason Comments Med Refill Reason Comments Low Blood Sugar Reason Comments Refill Request Reason Onset Date Comments Med Refill 07/03/2024 Reason Onset Date Comments Other 07/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 Reason Comments Medical Nutrition Therapy Hypoglycemia a nd unintentional weight loss Specialty Diagnoses / Procedures Referred By Contsalty t Referred To Contact Diagnoses Other specified diabetes mellitus with other specified complication, without long-term current use of insulin (HCC) Sensory food aversion Abnormal weight loss Mild protein-calorie malnutrition (HCC) Procedures ENDOCRINOLOGY DIETITIAN VISIT (MNT) MEDICAL NUTRITION ASSMT&IVNTJ INDIV EACH 15 [place] MEDICAL NUTRITION ASSMT&IVNTJ INDIV EACH 15 [place] MEDICAL NUTRITION ASSMT&IVNTJ INDIV EACH 15 [place] MEDICAL NUTRITION ASSMT&IVNTJ INDIV EACH 15 [place] Gale Bassett, LABORATORY MONITOR.INDUSTRIAL CLEANING TECHNICIAN [address] [place] [address] Referral ID Status Reason Start Date Expiration Date V isits Requested Visits Authorized [id number] Closed PCP Requested Referral 04/16/2024 04/16/2025 1 1 Reason Onset Date Comments Med Refill 07/24/2024 Reason Comments Acne Reason Comments Follow-up Lumbar/thoracic MRI follow up Reason Comments Follow-up Pt is here for consu lt on ovarian cyst. Specialty Diagnoses / Procedures Referred By Contac t Referred To Contact Obstetrics and Gynecology Diagnoses Cyst of left ovary Enriqueta Tse PA [address] [place] [address] [facility] [place] [address] Referral ID Status Reason Start Date Expiration Date V isits Requested Visits Authorized [id number] Closed Specialty Services Required 09/07/2023 09/06/2024 1 1 Reason Comments Contraception Reason Comments Consult New patient , lumbar , x-rays Specialty Diagnoses / Procedures Referred By Contac t Referred To Contact Spine Care Diagnoses Chronic bilateral low back pain with bilateral sciatica Enriqueta Tse PA [address] [place] [address] [facility] [address] [place] [phone] Referral ID Status Reason Start Date Expiration Date V isits Requested Visits Authorized [id number] Pending Review 09/07/2023 09/06/2024 1 1 Reason Comments Menstrual Problem Irregular spotting s vianey Nov. Pt has Nexplanon Reason Comments Bladder Problem Pt is having the fee ling they are not emptying all the way Reason Comments Comprehensive Health Assessment Type 2 s vianey age 20LEE 3 yrs ago Specialty Diagnoses / Procedures Referred By Contac t Referred To Contact Ophthalmology Diagnoses Mild protein-calorie malnutrition (HCC) Vision changes Procedures CONSULT TO OPHTHALMOLOGY OFFICE/OUTPATIENT NEW HIGH MDM 60 MINUTES Gale Bassett, LABORATORY MONITOR.INDUSTRIAL CLEANING TECHNICIAN [address] [place] [address] Phone: tel: fax: Referral ID Status Reason Start Date Expiration Date V isits Requested Visits Authorized [id number] Closed PCP Requested Referral 06/18/2024 06/18/2025 1 1 Reason Onset Date Comments Sleep Lab 10/12/2024 PSG Ordered Prescriptions (unrec ognized section and content) [...] 1,000 mg, IntraVENous, ONCE, 1 dose, On [place] 02/06/23 at 1715 1716 (New Bag - [...] BE BASED ON THE PRIMARY CLINICAL RECORDS. [employer] [facility]. provides no warranty or guarantee of the accuracy or completeness of information in this document.
[2024-12-29] MEDS: 0.9 % SODIUM CHLORIDE 1,000 ML 999 ML IV (16:07)
[2024-12-29 16:20] LABS: Hematocrit 40.2 % (36.0-48.0); Hemoglobin 13.9 g/dL (12.0-16.0); Immature Granulocytes Abs Auto 0.03 10^3/uL (0.00-0.03); Immature Granulocytes Pct Auto 0.3 % (0.0-0.5); Lymphocytes Absolute Auto 1.0 10^3/uL (1.2-3.8); Mean Corpuscular HGB Conc 34.6 g/dL (29.9-35.2); Mean Corpuscular Hemoglobin 31.0 pg (26.7-34.0); Mean Corpuscular Volume 89.7 fL (81.0-99.0); Platelet Count 208 10^3/uL (150-450); Red Blood Count 4.48 10^6/uL (4.20-5.40); White Blood Count 9.9 10^3/uL (4.0-11.0)
[2024-12-29 16:38] LABS: Alanine Aminotransferase 19 U/L (14-59); Albumin Globulin Ratio 1.3; Albumin Level 4.2 g/dL (3.4-5.0); Alkaline Phosphatase 59 U/L (46-116); Anion Gap 22.3; Aspartate Amino Transferase 21 U/L (15-37); Blood Urea Nitrogen 17.0 mg/dL (7.0-18.0); Calcium 9.0 mg/dL (8.5-10.1); Carbon Dioxide 17.3 mmol/L (21.0-32.0); Chloride 107 mmol/L (98-107); Estimated GFR (African America >60 (>=60 mL/min/1.73m^2); Estimated GFR (Non-African Ame >60 (>=60 mL/min/1.73m^2); Globulin 3.3 g/dL; Glucose 77 mg/dL (74-106); Potassium 3.6 mmol/L (3.5-5.1); Sodium 143 mmol/L (136-145); Total Protein 7.5 g/dL (6.4-8.2)
[2024-12-29 17:56] LABS: Glucose Urine UA NEGATIVE (NEGATIVE)
[2024-12-29 18:04] LABS: Cast Seen? NONE SEEN #/LPF (NONE SEEN); Crystals Seen? None Seen #/HPF (None Seen); Urine Culture Indicated NO
[2025-01-01 12:08] LABS: Lamotrigine (Lamictal), Serum <1.0 ug/mL (2.0-20.0)
== END 2024-12-29 18:46 | disposition home or self-care (01) ==
PROVIDERS: Personal Emergency Response Attendant; Emergency Provider Emergency Medicine; PCP Family Medicine
DX: E86.0 Dehydration (principal); G40.909 Epilepsy, unspecified, not intractable, without status epilepticus; F17.200 Nicotine dependence, unspecified, uncomplicated; Z79.899 Other long term (current) drug therapy; I47.10 Supraventricular tachycardia, unspecified
CPT/HCPCS: 36415; 71045; 80053; 80175; 81001; 85025; 93005; 96361; 96374; 99285; J2405

== ENCOUNTER 2025-01-09 16:02 | Emergency (ER) | payer OTHER, SELFPAY ==
--- OUTSIDE RECORDS SUMMARY | 2024-08-01 06:30 | XMS_ITS ---
Author Organization [facility] Address [address] [facility] [place] [address] Care Team Providers Care Insurance Follow Up Representative Name Role Phone Dr. Aman Henson Primary Care Provider [phone] Mahad Tania Cooper [phone] REASON FOR VISIT DEBRIDEMENT Encounters Encounter Location Date Provider Diagnosis [facility] [address] [facility] [place] [address] 08/01/2024 Tania Cooper Plan Of Treatment No Information Progress Notes * BHAVNA VILLAR (LIZY) MDOB :2000 (24 yo F)Acc No.[id number]:08/01/2024 Patient: Carmina JAMA BHAVNA KeyonnaLIZY) Kp Provider: Cielo Cooper :2000 A ge:24 Y S ex:Female Date:08/01/2024 Address:[address] [place], [place] [id number] Pcp:Dr. Aman Henson Subjective: * Chief Complaints: * 1 . DEBRIDEMENT. * Medical History: Objective: * Vitals: Assessment: Plan: * Treatment: * Images: * Electronic signature of Elida Cooper on 01/09/2025 at 04:10 PM EDT Sign off status: Pending * Provider: Cielo Cooper Date: 08/01/2024 Generated for Printi ng/Faxing/eTransmitting on: 0 01/09/2025 04:10 PM EDT
--- OUTSIDE RECORDS SUMMARY | 2024-09-04 05:45 | XMS_ITS ---
Author Organization [facility] Address [address] [place] [address] Care Team Providers Care Coverage Specialist Rn Name Role Phone Dr. Aman Henson Primary Care Provider [phone] Mahad Cooper Tania Kamara [phone] REASON FOR VISIT DEBRIDEMENT + PERIO CHART RE EVAL TX PLAN Encounters Encounter Location Date Provider Diagnosis [facility] [address] [facility] [place] [address] 09/04/2024 Tania Cooper Plan Of Treatment No Information Progress Notes * BHAVNA VILLAR (LIZY) MDOB :2000 (24 yo F)Acc No.[id number]:09/04/2024 Patient: BHAVNA ESPANA (EASTON) Provider: Cielo Cooper :2000 A ge:24 Y S ex:Female Date:09/04/2024 Address:[address] [place], [place] [id number] Pcp:Dr. Aman Henson Subjective: * Chief Complaints: * 1 . DEBRIDEMENT + PERIO CHART RE EVAL TX PLAN. * Medical History: Objective: * Vitals: Assessment: Plan: * Treatment: * Images: * Electronic signature of Elida Cooper on 01/09/2025 at 04:10 PM EDT Sign off status: Pending * Provider: Cielo Cooper Date: 0 09/04/2024 Generated for Printi ng/Faxing/eTransmitting on: 0 01/09/2025 04:10 PM EDT
--- OUTSIDE RECORDS SUMMARY | 2024-10-11 06:05 | XMS_ITS ---
Author Organization [facility] Address [address] [facility] [place] [address] Care Team Providers Care Eviction Specialist Name Role Phone Dr. Aman Henson Primary Care Provider [phone] Do Sharp [phone] REASON FOR VISIT EXT Encounters Encounter Location Date Provider Diagnosis [facility] [address] [facility] [place] [address] 10/11/2024 Do Sharp Plan Of Treatment No Information Progress Notes * BHAVNA VILLAR (LIZY) MDOB :2000 (24 yo F)Acc No.[id number]:10/11/2024 Patient: Carmina JAMA BHAVNA WALDEMAR) Kp Provider: Justin Sharp :2000 A ge:24 Y S ex:Female Date:10/11/2024 Address:[address] [place], [place] [phone] Pcp:Dr. Aman Henson Subjective: * Chief Complaints: * 1 . EXT. * Medical History: Objective: * Vitals: Assessment: Plan: * Treatment: * Images: * Electronic signature of Anderson Sharp DMD on 01/09/2025 at 04:11 PM EDT Sign off status: Pending * Provider: Justin Sharp Date: 0 10/11/2024 Generated for Printi ng/Faxing/eTransmitting on: 0 01/09/2025 04:11 PM EDT
--- OUTSIDE RECORDS SUMMARY | 2025-01-03 16:00 | XMS_ITS | Encounter Summary ---
Author Organization [facility] Address [address] [place] [address] Care Team Providers Care Hub Borer Name Role Phone House, Eric Boland MD Primary Care Provider [phone] Lavonne Davies LETTER OF CREDIT DOCUMENT EXAMINER Unavailable [phone] Reason for Referral * Consultation (Routine) - Authorized Specialty Diagnoses / Procedures Referred By Contac t Referred To Contact Cardiology Diagnoses Tachycardia Syncope, unspecified syncope type Procedures [place] OFFICE/OUTPATIENT [facility] 60 MINUTES Lavonne Davies NP [address] [place] [address] Phone: tel: fax: Shantanu Robles MD [address] [place] [address], [address] [address] Phone: tel: fax: Referral ID Status Reason Start Date Expiration Date Visits Requested Visits Authorized [id number] Authorized Specialty Services Required 01/03/2025 07/02/2025 1 1 Encounter Details Date Type Department Care Team (Late st Contact Info) Description 01/03/2025 4:00 PM EDT Telemedicine [facility] [address] [place] [phone] Lavonne Davies NP [address] [place] [address] [phone] Psychogenic nonepileptic seizure (Primary Dx); Tachycardia; Syncope, unspecified syncope type; Migraine without aura and without status migrainosus, not intractable ; Seizure disorder (HCC) Social History Tobacco Use Types Packs/Day Years [...] - Inhaled Oxygen Concentration - - Weight 42.2 kg (93 lb) 01/03/2025 4:18 PM EDT Height 157.5 cm (5' 2 ) 01/03/2025 4:18 PM EDT Body Mass Index 17.01 01/03/2025 4:18 PM EDT documented in this encounter Progress Notes * Lavonne Davies, SLIVIA - 01/03/2025 4:00 PM EDT Images from the original note were not included. Subjective Yonatan Kovacs is a 24 y.o. adult who presents for migraines, seizure symptoms, tremor, insomnia History of Present Illness Yonatan presents via televisit with video. He is at home. He consents to visit. He was hospitalized the day after the 28 of December and reports elevated Ketones and CO2 levels. He is having difficulty with speech and walking. He had sleep study which showed insomnia. He would like a new referral to cardiology. He has the loop recorder and having increased heart rates. He is having increasing headaches, migraines and left arm tremor. He is losing significant weight. Review of Systems Constitutional: Negative for chills, fatigue and fever. HENT: Negative for tinnitus. Eyes: Negative for photophobia. Respiratory: Negative for shortness of breath. Cardiovascular: Negative for chest pain. Gastrointestinal: Negative for nausea and vomiting. Genitourinary: Negative for frequency. Musculoskeletal: Negative for back pain, gait problem and neck pain. Neurological: Positive for tremors, seizures and headaches. Negative for dizziness, weakness, light-headedness and numbness. Psychiatric/Behavioral: Positive for sleep disturbance. Neurological Exam Mental Status Awake, alert and oriented to person, place and time. Oriented to person, place and time. Speech is normal. Language is fluent with no aphasia. Objective There were no vitals taken for this visit. 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 We were never able to review or track down these records. He is on combination treatment for mood and seizures. He is having increasing headaches/migraines and tremor. He is experiencing weight loss. I will wean topamax. I will start zonegran 25 mg at bedtime and he will increase to 50 mg second week. He would like referral for second opinion to different billing customer service representative for his tachycardia. He has loop recorder in place. I will refer to Dr. Robles. This was discussed with patient all questions answered. Total time 30 minutes spent reviewing records, performing medically appropriate exam, counseling , education, ordering medication, tests, and/or procedures, documenting health information into the health record, communicating results to the patient, and coordinating care. documented in this encounter Plan of Treatment Upcoming Encounters Date Type Department Care Team (Late st Contact Info) Description 02/06/2025 3:00 PM EDT Office Visit [facility] [address] [place] [address] Sierra Anna LETTER OF CREDIT DOCUMENT EXAMINER [address], [address] [place] [address] Scheduled Referrals Name Type Priority Associated Diagnoses Orde r Schedule Ambulatory referral to Cardiology Outpatient Referral Routine Tachycardia Syncope, unspecified syncope type Expected: 01/03/2025 (Approximate), Expires: 07/06/2025 documented as of this encounter Visit Diagnoses Diagnosis Psychogenic nonepileptic seizure- Primary Tachycardia Unspecified tachycardia Syncope, unspecified syncope type Migraine without aura and without status migrainosus, not intractable Seizure disorder (HCC) Unspecified epilepsy without mention of intractable epilepsy documented in this encounter Care Teams Hub Borer Relationship Specialty Start Date End Date Eric Isbell MD PCP - General Family Medicine 02/11/23 Lavonne Davies NP [address] [place] [address] PCP - [facility] 12/26/23 documented as of this encounter
--- OUTSIDE RECORDS SUMMARY | 2025-01-04 15:00 | XMS_ITS | Encounter Summary ---
Author Organization [facility] Address [address] [place] [address] Care Team Providers Care Cell Maker Name Role Phone House Sr., Eric BUCKLEY Primary Care Provider + Source Comments In the event this information is protected by the Federal Confidentiality of Alcohol and Drug AbusePatient Records regulations: The Federal rules restrict any use of the information to criminally investigate or prosecute any alcohol or drug abuse patient.[facility] Reason for Referral * Consult, Test, Treat (Routine) - Authorized Specialty Diagnoses / Procedures Referred By Contsalty t Referred To Contact Ophthalmology Diagnoses Vision changes Procedures CONSULT TO OPHTHALMOLOGY OFFICE/OUTPATIENT [facility] 60 MINUTES Glae Kinney APRN.PUBLIC POLICY COORDINATOR [address] [place] [address] Phone: tel: fax: Referral ID Status Reason Start Date Expiration Date Visits Requested Visits Authorized [id number] Authorized PCP Requested Referral 01/04/2025 01/04/2026 1 1 * Consult, Test, Treat (Routine) - Authorized Specialty Diagnoses / Procedures Referred By Contac t Referred To Contact Gastroenterology Diagnoses Gastroparesis Abnormal weight loss Mild protein-calorie malnutrition (HCC) Emesis, persistent Procedures CONSULT TO GASTROENTEROLOGY OFFICE/OUTPATIENT [facility] 60 MINUTES Gale Kinney APRN.CNP [address] [place] [address] Phone: tel: fax: Referral ID Status Reason Start Date Expiration Date Visits Requested Visits Authorized [id number] Authorized PCP Requested Referral 01/04/2025 01/04/2026 1 1 * Speech Therapy (Routine) - Authorized Specialty Diagnoses / Procedures Referred By Carlos A t Referred To Contact SPEECH THERAPY Diagnoses Gastroparesis Abnormal weight loss Mild protein-calorie malnutrition (HCC) Emesis, persistent Procedures CONSULT TO SPEECH THERAPY OFFICE/OUTPATIENT [facility] 60 MINUTES EVAL SPEECH SOUND PRODUCT LANGUAGE COMPREHENSION TX SPEECH LANG VOICE COMMJ &/AUDITORY PROC IND Gale Kinney APRN.PUBLIC POLICY COORDINATOR [address] [place] [address] Phone: tel: fax: [facility] [place] Speech Therapy [address] [place] [phone] Phone: tel: fax: Referral ID Status Reason Start Date Expiration Date Visits Requested Visits Authorized [id number] Authorized Auto-Generat ed Referral 12/25/2024 06/26/2025 8 8 Reason for Visit * Reason Comments Consult Encounter Details Date Type Department Care Team (Late st Contact Info) Description 01/04/2025 3:00 PM EDT Office Visit Endocrinology [address] [place] [address] Gale Kinney APRN.CNP [address] [place], [place] [phone] Hypoglycemia (Primary Dx); Vision changes; Gastroparesis; Abnormal weight loss; Mild protein-calorie malnutrition (HCC); Emesis, persistent Social History Tobacco Use Types Packs/Day Years Used Date Smoking Tobacco: Never Smokeless Tobacco: Never Alcohol Use Standard Drinks/Week Comments Not Currently 0 (1 standard drink = 0.6 oz pur e alcohol) Area Deprivation Index Answer Date Jem rded National Score (1-100), lower number is lower ri sk 76 04/16/2024 State Score (1-10), lower number is lower risk 6 04/16/2024 Data from: https://www.neighborhoodatlas.[facility].edu/. Last address used for calculation spring04/16/2024 Comments No Sex and Gender Information Value Date Recorded Sex Assigned at Female 09/04/2018 2:58 PM EDT Legal Sex Female 10:19 AM EST Gender Identity Transgender Male 09/04/2018 2:58 PM EDT Sexual Orientation Lesbian or Corral 09/04/2018 2: 58 PM EDT documented as of this encounter Last Filed Vital Signs Vital Sign Reading Time Taken Comments Blood Pressure 101/66 01/04/2025 3:06 PM EDT Pulse 77 01/04/2025 3:06 PM EDT Temperature - - Respiratory Rate - - Oxygen Saturation 99% 01/04/2025 3:06 PM EDT Inhaled Oxygen Concentration - - Weight 41.7 kg (91 lb 13.2 oz) 01/04/2025 3:06 P M EDT Height 157.5 cm (5' 2.01 ) 01/04/2025 3:06 PM ED T Body Mass Index 16.79 01/04/2025 3:06 PM EDT documented in this encounter Functional Status * Are you [...] Charles Anders RN documented in this encounter Patient Instructions * Patient Instructions* Gale Kinney APRN.CNP - 01/04/2025 3:35 PM EDT - Arrange a speech therapy evaluation. A prescription for speech therapy was provided - Schedule a gastroenterology follow-up to address your gastroparesis and ongoing sharp abdominal pain. - Make a neurology appointment to review your recent seizure, left-arm tremors, migraines, and burning/tingling in your arms and legs. - Book an eye exam to check your vision and screen for glaucoma (bring your current glasses). - Continue eating small, frequent meals, keeping portions light so you can keep food down and reduce vomiting. - Keep drinking water and electrolyte-containing fluids to stay hydrated; your labs show stable electrolytes and kidney function. documented in this encounter Progress Notes * Gale Kinney APRN.CNP - 01/04/2025 3:18 PM EDT Endocrinology Follow Up Subjective History of Present Illness Karis Kovacs presents today for follow up of Type 2 Diabetes Mellitus. Gender: adult : 2000 Diagnosed with Type 2 Diabetes Mellitus 2019. Pertinent medical history of abnormal TSH, anxiety, PTSD. Hypoglycemia awareness: Good DM Complications: none Prior DM Medications: Metformin 2 tabs 2x daily Interval HPI: 04/16/2024. Restarted Metformin and started CGM for [...] of recurrent kidney stones Blood in urine MARY LOU 06/18/2024 05/14/2024-05/27/2024 - Wide fluctuations in glucose: No Summary of personal CGM findings: Data download for most recent 14 days: CGM Type: Refund Exchange G7 CGM recording adequate for interpretation: Yes Worn 98.5% of time. Coefficient of variation: 17.7% Interpretation: - Hyperglycemia no near elevated readings - Hypoglycemia intermittent and recurrent hypoglycemia Average glucose 90 mg/dL Time above range (BG > 180 mg/dL) 0% Time in range (BG 70-180 mg/dL) 95% Time below range (BG < 70 mg/dL) 5% CURRENT HPI Recent ED visit for seizure-like activity on 12/15/2024 From ED Note: Medical Decision Making Patient is a 24-year-old, history of PNES, atrial tachycardia, migraines, brought in by ambulance with concern for seizures, reported to episodes of seizure-like activity lasting approximately 30 seconds, patient given Versed EN route. On arrival here patient awake and alert, vitals notable for mild tachycardia, otherwise unremarkable, afebrile. On exam there was no focal neurological deficits, no evidence of head trauma or injury, no tongue lacerations, cardiopulmonary exam notable for tachycardia, otherwise reassuring. Workup notable for no leukocytosis or anemia, electrolytes unremarkable,normal renal function, lactate within normal limits, troponin negative x2, ECG without STEMI or arrhythmia. ETOH negative. Patient given IV Keppra load with no further seizures. No evidence of statusepilepticus. Reassuring neurological exam, and patient with a history of seizures/PNES, low suspicion for acute intracranial etiology. On exam there was a small palpable nodule in the area from the recent cardiac catheterization, there was no hematoma/ecchymosis, pulses palpable, with no lower extremity mottling and is neurovascularly intact, I discussed it is important to follow up with primary care physician/Cardiology regarding this as further evaluation with the ultrasound may be needed. Following the Keppra, patient reports feeling much better and requesting to be discharged home at this time, I discussed strict ED return precautions, neurology follow up. Patient is stable for discharge home. Amount and/or Complexity of Data Reviewed External Data Reviewed: notes. Details: Reviewed recent neurology visit 12/06: 1. Seizures: PNES and question of generalized [...] sleep study indicated insomnia without apneas. Doxepin 10mg at bedtime will be prescribed to manage her insomnia. 4. Atrial tachycardia. She has a history of atrial tachycardia, with a resting heart rate currently at 240 bpm despite medication. The initiation of Topamax will be monitored to see if it affects her heart rate. If there is no improvement, a referral to another transportation maintenance supervisor will be considered. IN OFFICE TODAY High Ketone Levels: - Recent lab results showed ketone levels at 80 and CO2 levels at 17. - Reports eating regularly, but experiencing weight loss. - Blood glucose levels fluctuate, staying in the 120s before dropping. - Consumes proteins, chicken, and various meals; eats breakfast, lunch, and dinner most days. - Drinks water and Liquid I.V. for hydration. Abdominal Pain: - Constant sharp abdominal pain. - Diagnosed with gastroparesis after a gastric emptying scan. - Experiences difficulty swallowing and frequent emesis. - Referral for speech therapy was canceled; PCP has not rescheduled. Migraines: - Severe left-sided migraines. - Associated with tremors in the left arm. - Prescribed medication for tremors, but no relief reported. Neuropathy: - Reports burning and tingling sensations in arms and legs when showering. Current DM Regimen: na Glucose Monitoring: - Frequency of Monitoring: not checking - Reports hypoglycemia. - Able to self treat: Yes Diet: Increased eating however vomiting often Unsure if any nutrition is absorbing Gastroparesis diagnosis - has not been seen for follow up with GI RD tried to refer to Speech Reports eating various foods and waiting 3-4 hrs until eating again and still will have trouble tolerating food Yonatan has lost 8 lb since last visit Currently 91 lb Drinking water and gatorade Physical Activity: Sedentary- too tired Review of Systems: Endo: Positive for polyuria and Negative for increased thirst and polydipsia Resp: Positive for shortness of breath and Negative for cough CV: Negative for chest pain, edema GI: Positive for abdominal pain and nausea and Negative for reflux, vomiting, and diarrhea Recent A1c Results: Hemoglobin A1C (POCT) (%) Date Value 04/16/2024 5.3 Diabetes Health Maintenance: Health Maintenance Topics Topic Date Due Diabetic Foot Exam Never done Medications, Past History, Allergies Current Medications 01/04/2025 CARDIOVASCULAR Medication Dosage Pharm Subclass flecainide (TAMBOCOR) [...] SQ Q2wks Medical Supplies and DME - Katy and Syringes brivaracetam (BRIVIACT) 100 mg tablet [...] testosterone Q2wks Medical Supplies and DME - [facility] and Syringes Needle, Disp, 23 G 23 gauge x 3/4 ndle For use with testosterone administration SQ Q2wks Medical Supplies and DME - Katy and Syringes ondansetron orally disintegrating (ZOFRAN ODT) [...] Seizures (HCC) pseudoseizures Traumatic brain injury (HCC) Type 2 diabetes mellitus without retinopathy (HCC) 10/08/2024 ALLERGIES Allergen Reactions Codeine Hives, Itching Objective Physical Examination VS: BP 101/66 Pulse 77 Ht 157.5 cm (5' 2.01 ) Wt 41.7 kg (91 lb 13.2 oz) LMP 01/02/2025 (Approximate) SpO2 99% BMI 16.79 kg/m?? General appearance: thin, malnourished Heart: RRR Lungs: respirations even, unlabored, and regular. Neuro: mental status intact, speech clear Abdomen: BS x 4 Previous Laboratory Results Glucose (mg/dL) Date Value 05/11/2024 86 12/05/2020 87 eGFR- (no units) Date Value 12/05/2020 >60 12/05/2019 >60 eGFR-All Other Races (.) Date Value 12/05/2020 >60 12/05/2019 >60 Estimated Glomerular Filtration Rate (mL/min/1.73m??) Date Value 05/11/2024 116 Creatinine Date Value [...] Cholesterol (mg/dL) Date Value 03/29/2019 51 LDL Cholesterol, Calculated (mg/dL) Date Value 03/29/2019 82 Triglyceride (mg/dL) Date Value 03/29/2019 106 LDL:HDL Ratio (no units) Date Value 03/29/2019 1.61 Albumin/Creat Ratio (mg/g) Date Value 05/11/2024 <13 Creatinine, Ur Random (UCRR) (mg/dL) Date Value 05/11/2024 94.6 Impression / Recommendations Karis Kovacs is here for follow up of hypoglycemia with no complications. Hypoglycemia - A1c is at target (< 7%). - hypoglycemia intermittent - will send in CGM for restart d/t seizure following low glucose levels - low glucose detection likely related to limited food abosoption - he needs SPEECH, GI and PSYCH follow up closely and may need intensive - discussed hypoglycemia signs and symptoms and [...] help regulate low glucose levels Diabetes Plan: 1. Hypoglycemia (E16.2) - Blood glucose levels fluctuate, reaching 120s before dropping. - Advised to monitor blood glucose levels regularly. 2. Vision changes (H53.9) - Patient has glasses; no signs of glaucoma. - Recommended ophthalmology evaluation to ensure no underlying issues. 3. Gastroparesis (K31.84) - Diagnosed via gastric emptying study; patient reports persistent abdominal pain and emesis. - Referred to gastroenterology for follow-up. 4. Abnormal weight loss (R63.4) 5. Mild protein-calorie malnutrition (HCC) (E44.1) 6. Emesis, persistent (R11.15) - Significant weight loss and malnutrition due to persistent emesis and gastroparesis. - Referred to finishing area operator for dietary management. - Prescribed nutritional supplements to ensure adequate caloric and protein intake. - Referred to speech therapy for swallowing evaluation and management. - discussed no current diabetes diagnosis - recommend follow up with Speech therapy (referral placed) to help with texture aversion and Molder Feeder (appt scheduled) to work with you for [...] to each appointment Follow up as needed GI Concerns: Referred to Speech for swallow study: Dx: Gastroparesis, recurrent emesis - Uncertain of baseline reason - please rule out GI etiology - has had emptying study - diagnosed w gastroparesis and has hadrecent seizures - unsure of how much nutrients are absorbed - recurrent emesis. Has been increasingfood variety. Neuropathy type pain in legs: - follow up with Neurologist and GI - possibly related to nutrient deficits Hematuria History of kidney stones: Recommend to call Urology office - if unable to be started on medication treatment today - go to Urgent care as soon as possible - within the next 2 hours for exam, medications, order for US etc - advised early treatment will prevent ad terminal makeup operator complications and possible hospital admission Patient to continue to follow up with their PCP and with other specialists regarding their other medical problems. Any part of this document that has been added/copied & pasted from other documents has been reviewed for accuracy and updated as appropriate at the time of the patient encounter. I spent a total of 40 minutes on the date of the service which included preparing to see the patient, [id number] patient care, completing clinical documentation, obtaining and/or reviewing separately obtained history, performing a medically appropriate examination, counseling and educating the pat ient/family/caregiver, and ordering medications, tests, or procedures. Gale Kinney APRN.AMELIA Department of Endocrinology [facility] documented in this encounter Plan of Treatment Upcoming Encounters Date Type Department Care Team (Late st Contact Info) Description 01/11/2025 11:15 AM EDT OT/PT/Speech Visit [facility] Speech Therapy [address] [place] [phone] Kassy Pang [facility]AUTOMOBI[employer] BODY CUSTOMIZER [address] [place] [address] consult 01/17/2025 3:15 PM EDT Office Visit [facility] Ophthalmology [address] [place], [place] [id number] Jace Salas, OD [address] [place] [address] Diagnostics, [facility] [address] [address] Vision changes [H53.9] 07/08/2025 3:00 PM EST Office Visit Endocrinology [address] [place] [address] Gale Kinney, ROSA.[address] [address] 6 mo follow up documented as of this encounter Procedures Procedure Name Priority Date/Time Associated Diagnosis Comments HEMOGLOBIN A1C (POC) Routine 01/04/2025 3:15 PM EDT documented in this encounter Results * HEMOGLOBIN A1C (POC) (01/04/2025 3:15 PM EDT) Hemoglobin A1C (POCT) 5.4 4.3 - 5.6 % [facility] Comment: Location:[facility], [address] [place] [address] [place], [place], [address] Point of care (POC) Hemoglobin A1c (HGBA1C) [...] specific diabetes management situations: The POC device host hostess provides a normal range of 4.2% to 6.5% for the HGBA1C POC test. However, the [place] [employer] guidelines indicate that patients with [...] anemia) that alter red blood cell lifespan. 01/04/2025 3:15 PM EDT Gale R [place] WRONG ADDRESS CLERK.PUBLIC POLICY COORDINATOR POC TESTING Final Result [facility] POINT OF CARE [facility] [address] [place] documented in this encounter Visit Diagnoses Diagnosis Hypoglycemia- Primary Hypoglycemia, unspecified Vision changes Unspecified visual disturbance Gastroparesis Abnormal weight loss Loss of weight Mild protein-calorie malnutrition (HCC) Malnutrition of mild degree Emesis, persistent Persistent vomiting documented in this encounter Care Teams Cell Maker Relationship Specialty Start Date End Date Eric Isbell Sr., DO PCP - General Family Medicine 03/29/19 documented as of this encounter
--- OUTSIDE RECORDS SUMMARY | 2025-01-09 16:10 | XMS_ITS | Encounter Summary ---
Author Organization [facility] Address [id number] [address] [place] [address] Care Team Providers Care Mobile Marketing Specialist Name Role Phone Eric Isbell DO Primary Care Provider Reason for Referral * Diagnostic Imaging (Routine) - Closed Specialty Diagnoses / Procedures Referred By Contac t Referred To Contact Radiology Diagnoses Pain Procedures CT brain without contrast [facility] [address] [place] [phone] Phone: tel: fax: Referral ID Status Reason Start Date Expiration Date Visits Re quested Visits Authorized [id number] Closed 11/25/2023 11/24/2024 1 1 * Diagnostic Imaging (Routine) - Closed Specialty Diagnoses / Procedures Referred By Contac t Referred To Contact Radiology Diagnoses Pain Procedures CT cervical spine without contrast [facility] [address] [place] [phone] Phone: tel: fax: Referral ID Status Reason Start Date Expiration Date Visits Re quested Visits Authorized [id number] Closed 11/25/2023 11/24/2024 1 1 Encounter Details Date Type Department Care Team (Late st Contact Info) Description 11/25/2023 Orders Only [facility] [address] [place] [phone] Transcribe, Orders Support User Pain (Primary Dx) Social History Tobacco Use Types Packs/Day Years Used Date Smoking Tobacco: Never Smokeless Tobacco: Never Alcohol Use Standard Drinks/Week Comments Not Currently 0 (1 standard drink = 0.6 oz pur e alcohol) [facility] Utilities Answer Date Recorded In the [...] of Assessment Author 1 11/25/2023 12:52 PM EDT Leila Sanders RN * Question Answer Date of Assessment Author Q1: How often do you have a drink containing alcohol? Monthly or less 11/25/2023 12:52 PM EDT Efrain Pagan RN Q2: How many drinks containing alcohol do you have on a typical day when you are drinking? 1 or 2 11/25/2023 12:52 PM EDT Pramod Pagan RN Q3: How often do you have six or more drinks on one occasion? Never 11/25/2023 12:52 PM EDT Efrain Pagan RN * Question Answer Date of Assessment Author Functional Status Independent 11/25/2023 12:48 PM EDT Leila Pagan RN documented as of this encounter Mental Status * Question Answer Entry Date Author Overall Cognitive Status X 11/25/2023 9:53 AM EDT Luly Patricia, OTR/L documented in this encounter Plan of Treatment Not on file documented as of this encounter Goals Goal Patient Goal Type Associated Problems Recent Progress Patient-Stated? Author <enter goal here> General Yes Jeanna Damon, GARBAGE WORKER Note: Evaluation of progress towards goal: home with family, self care goal General Yes Rosalee Chavez, NATHANIEL Note: Evaluation of progress towards goal: Patients [...] documented as of this encounter Care Teams Mobile Marketing Specialist Relationship Specialty Start Date End Date Eric Isbell DO [address] [id number] PCP - General Family Medicine 08/16/24 documented as of this encounter
--- OUTSIDE RECORDS SUMMARY | 2025-01-09 16:10 | XMS_ITS | Encounter Summary ---
Author Organization [employer] [facility] Address [facility] [id number] [address] [place] [address] Care Team Providers Care Diffuser Operator Name Role Phone Eric Isbell DO Primary Care Provider [phone] Reason for Visit * Reason Onset Date Comments Appointment 10/19/2021 Encounter Details Date Type Department Care Team ([facility] Contact Info) Description 10/19/2021 Telephone [facility] Neurology [address] [place] [address] Carlene Skinner Appointment Social History [...] new patient appointment for Epilepsy, nonconvulsive . *[place]? Please make sure to verify patient insurance. * Telephone Encounter - Brenton Miller - 10/19/2021 2:51 PM EDT Patient scheduled 12/11/21 w/ [facility] in [place]. Paperwork sent: 10/19/21 [facility] Insurance rajesh [place] * Telephone Encounter [...] no sooner appointments. Please contact Carlita at [phone], option 2. Thanks! * Telephone Encounter - [...] documented as of this encounter Care Teams Diffuser Operator Relationship Specialty Start Date End Date Eric Isbell DO [address] [place] [address] PCP - General Family Medicine 08/16/24 documented as of this encounter
--- OUTSIDE RECORDS SUMMARY | 2025-01-09 16:11 | XMS_ITS | Encounter Summary ---
Author Organization [facility] Address [address] [place] [address] Care Team Providers Care Button Pusher Name Role Phone House Sr., Eric BUCKLEY Primary Care Provider + Source Comments In the event this information is protected by the Federal Confidentiality of Alcohol and Drug AbusePatient Records regulations: The Federal rules restrict any use of the information to criminally investigate or prosecute any alcohol or drug abuse patient.[facility] Encounter Details Date Type Department Care Team (Late st Contact Info) Description 09/24/2020 Get Medical Advice Pediatrics [address] [place] [phone] Joslyn Bland MD [address] [place] [address] RE: Medication Question (Not Renewal) Social History Tobacco Use Types Packs/Day Years Used Date Smoking Tobacco: Never Smokeless Tobacco: Never Area Deprivation Index Answer Date Jem rded National Score (1-100), lower number is lower ri sk Not on file 06/02/2020 State Score (1-10), lower number is lower risk N ot on file 06/02/2020 Data from: https://www.neighborhoodatlas.medicine.[facility]/. Last address used for calculation [...] Description 01/11/2025 11:15 AM EDT OT/PT/Speech Visit [facility] Speech Therapy [address] [place] [address] Kassy Pang, [facility]-CHIEF ENGINEER [address] [place] [address] consult 01/17/2025 3:15 PM EDT Office Visit [facility] Ophthalmology [address] [place] [address] [place] [address] Jace Salas, OD [address] [place] [address] Diagnostics, Eye Tech And [address], [place] [address] Vision changes [H53.9] 07/08/2025 3:00 PM EST Office Visit Endocrinology [address] [place] [address] Gale Kinney, BIOINFORMATICS ANALYST.[facility] [address] [place], [place] [phone] 6 mo follow up documented as of this encounter Visit Diagnoses Not on filedocumented in this encounter Additional Health Concerns Infection Onset Date Last Indicated Resolved Time COVID-19 Rule-Out 11/26/2020 12/01/2020 12/02/2020 1:45 PM EDT documented as of this encounter Care Teams Button Pusher Relationship Specialty Start Date End Date Eric Isbell Sr., PCP - General Family Medicine 03/29/19 documented as of this encounter
--- OUTSIDE RECORDS SUMMARY | 2025-01-09 16:11 | XMS_ITS | Encounter Summary ---
Author Organization [facility] Address [address] [place] [address] Care Team Providers Care Delicatessen Store Manager Name Role Phone House Sr., Eric BUCKLEY Primary Care Provider + Source Comments In the event this information is protected by the Federal Confidentiality of Alcohol and Drug AbusePatient Records regulations: The Federal rules restrict any use of the information to criminally investigate or prosecute any alcohol or drug abuse patient.[facility] Encounter Details Date Type Department Care Team (Late st Contact Info) Description 12/04/2020 Surgical [facility] MA[facility] G090 [address] [place] [address] Salvatore Morin MD [address] [place] [address] Social History Tobacco Use Types [...] N ot on file 06/02/2020 Data from: https://www.neighborhoodatlas.medicine.[facility].edu/. Last address used for calculation Not on [...] Description 01/11/2025 11:15 AM EDT OT/PT/Speech Visit [facility] Speech Therapy [address] [place] [address] Kassy Pang [facility]-PURCHASING ASSOCIATE [address] [place] [address] consult 01/17/2025 3:15 PM EDT Office Visit [facility] Ophthalmology [address] [place] [address] Jace Salas, OD [address] [place] [address] Diagnostics, Eye Tech And [address], [place] [address] Vision changes [H53.9] 07/08/2025 3:00 PM EST Office Visit Endocrinology [address] [place] [address] Gale Kinney, AUTOMOTIVE ELECTRICIAN.[facility] [address] [place] [address] 6 mo follow up documented as of this encounter Visit Diagnoses Not on filedocumented in this encounter Care Teams Delicatessen Store Manager Relationship Specialty Start Date End Date Eric Isbell Sr., PCP - General Family Medicine 03/29/19 documented as of this encounter
--- OUTSIDE RECORDS SUMMARY | 2025-01-09 16:11 | XMS_ITS | Encounter Summary ---
Author Organization [facility] Address [address] [place] [address] Care Team Providers Care Broadcast Transmitter Operator Name Role Phone House Sr., Eric BUCKLEY Primary Care Provider + Source Comments In the event this information is protected by the Federal Confidentiality of Alcohol and Drug AbusePatient Records regulations: The Federal rules restrict any use of the information to criminally investigate or prosecute any alcohol or drug abuse patient.[facility] Encounter Details Date Type Department Care Team (Late st Contact Info) Description 12/13/2020 Patient Msg Internal Medicine [place] [address] [place] [phone] Provider, [facility] Appointment Social History Tobacco Use [...] N ot on file 06/02/2020 Data from: https://www.neighborhoodatlas.[facility]/. Last address used for calculation Not [...] Description 01/11/2025 11:15 AM EDT OT/PT/Speech Visit [facility] Speech Therapy [address] [place] [address] Kassy Pang, [facility]-LINE UP EXAMINER [address] [place] [address] consult 01/17/2025 3:15 PM EDT Office Visit [facility] Ophthalmology [address] [place] [address] [place] [address] Jace Salas, OD [address] [place] [address] Diagnostics, Eye Tech And [address] [address] Vision changes [H53.9] 07/08/2025 3:00 PM EST Office Visit Endocrinology [address] [place] [address] Gale Kinney, MOP MAKER.[facility] [address] [place], [place] [phone] 6 mo follow up documented as of this encounter Visit Diagnoses Not on filedocumented in this encounter Care Teams Broadcast Transmitter Operator Relationship Specialty Start Date End Date Eric Isbell Sr., PCP - General Family Medicine 03/29/19 documented as of this encounter
--- OUTSIDE RECORDS SUMMARY | 2025-01-09 16:11 | XMS_ITS | Clinical Summary ---
Author Organization [facility] Address [address] [facility] [address] [place] [address] Care Team Providers Care Specimen Processor Name Role Phone House Sr., Eric BUCKLEY Primary Care Provider + Allergies Active Allergy Reactions Criticality Noted Date Comments Lester Vernon 07/17/2017 Medications levETIRAcetam (KEPPRA) 500 MG tablet [...] - 2023-2 5 season) 2024 Flu vaccine (#1) 01/25/2025 Pneumococcal 0-49 years Vaccine Aged Out 3 [...] patient's age to complete this topic Insurance Advance Directives * Full Code (Latest Code Status on File) Date Activated Date Inactivated Comments 07/17/2017 5:41 AM 07/17/2017 8:14 PM Care Teams Specimen Processor Relationship Specialty Start Date End Date Eric Isbell Sr., [address] [place] [address] PCP - General Family Medicine 07/17/17
--- OUTSIDE RECORDS SUMMARY | 2025-01-09 16:11 | XMS_ITS | Encounter Summary ---
Author Organization [facility] Address [facility] [place][id number] [address] [place] [address] Care Team Providers Care Manager Continuous Improvement Name Role Phone Eric Isbell DO Primary Care Provider [phone] Encounter Details Date Type Department Care Team ([facility] st Contact Info) Description 07/14/2023 Orders Only [facility] [address] [place] [phone] External, Scanning Provider Social History Tobacco Use [...] on file documented as of this encounter Procedures Procedure [...] documented as of this encounter Care Teams Manager Continuous Improvement Relationship Specialty Start Date End Date Eric Isbell DO [address] [phone] PCP - General Family Medicine 08/16/24 documented as of this encounter
--- OUTSIDE RECORDS SUMMARY | 2025-01-09 16:11 | XMS_ITS | Encounter Summary ---
Author Organization [facility] Address [address] [place] [address] Care Team Providers Care Esl Instructor Name Role Phone House Sr., Eric BUCKLEY Primary Care Provider + Source Comments In the event this information is protected by the Federal Confidentiality of Alcohol and Drug AbusePatient Records regulations: The Federal rules restrict any use of the information to criminally investigate or prosecute any alcohol or drug abuse patient.[facility] Encounter Details Date Type Department Care Team (Late st Contact Info) Description 10/07/2020 Get Medical Advice Plastic Surgery [address] [address] [place] [address] [place] [address] RE: Medication Question (Not Renewal) Social History Tobacco Use Types Packs/Day Years Used Date Smoking Tobacco: Never Smokeless Tobacco: Never Area Deprivation Index Answer Date Jem rded National Score (1-100), lower number is lower ri sk Not on file 06/02/2020 State Score (1-10), lower number is lower risk N ot on file 06/02/2020 Data from: https://www.neighborhoodatlas.medicine.[facility]/. Last address used for calculation Not on [...] Description 01/11/2025 11:15 AM EDT OT/PT/Speech Visit [facility] Speech Therapy [address] [facility] [place] [address] Kassy Pang, [facility]-BUSINESS OBJECTS [address] [place] [address] consult 01/17/2025 3:15 PM EDT Office Visit [facility] Ophthalmology [address] [place] [address] [place] [address] Jace Salas, OD [address] [place] [address] Diagnostics, Eye Tech And [address] [place] [address] Vision changes [H53.9] 07/08/2025 3:00 PM EST Office Visit Endocrinology [address] [place] [address] Gale Kinney, MEDICINAL PLANT PICKER.[address] [phone] 6 mo follow up documented as of this encounter Visit Diagnoses Not on filedocumented in this encounter Additional Health Concerns Infection Onset Date Last Indicated Resolved Time COVID-19 Rule-Out 11/26/2020 12/01/2020 12/02/2020 1:45 PM EDT documented as of this encounter Care Teams Esl Instructor Relationship Specialty Start Date End Date Eric Isbell Sr., PCP - General Family Medicine 03/29/19 documented as of this encounter
--- OUTSIDE RECORDS SUMMARY | 2025-01-09 16:11 | XMS_ITS | Encounter Summary ---
Author Organization [facility] Address [address] [place] [address] Care Team Providers Care Body Shop Mechanic Name Role Phone House Sr., Eric BUCKLEY Primary Care Provider + Source Comments In the event this information is protected by the Federal Confidentiality of Alcohol and Drug AbusePatient Records regulations: The Federal rules restrict any use of the information to criminally investigate or prosecute any alcohol or drug abuse patient.[facility] Encounter Details Date Type Department Care Team (Late st Contact Info) Description 05/12/2020 Get Medical Advice [facility] [address] [place] [address] [place] [address] [place], [place] [phone] RE: Non-Urgent Medical Question Social History Tobacco [...] Provider Department Center 07/03/2020 1:00 PM Joslyn PHILLIPSKW [facility] 07/15/2020 2:30 PM Quentin Rinaldi PSPDLK [facility] 09/03/2020 9:30 AM Salvatore Barrios documented in this encounter Plan of Treatment Upcoming Encounters Date Type Department Care Team (Late st Contact Info) Description 01/11/2025 11:15 AM EDT OT/PT/Speech Visit [facility] Speech Therapy [address] [place] [address] Kassy Pang, ZOE-TRIMMER BUFFING WHEEL [address] [place] [address] consult 01/17/2025 3:15 PM EDT Office Visit [facility] Ophthalmology [address] [place] [address] Jace Salas, OD [address] [place] [address] Diagnostics, Eye Tech And [address] [place] [address] Vision changes [H53.9] 07/08/2025 3:00 PM EST Office Visit Endocrinology [address] [place] [address] Gale Kinney, X RAY SERVICE TECHNICIAN.MANAGER BUDGET [address] [place] [address] 6 mo follow up documented as of this encounter Visit Diagnoses Not on filedocumented in this encounter Additional Health Concerns Infection Onset Date Last Indicated Resolved Time COVID-19 Rule-Out 11/26/2020 12/01/2020 12/02/2020 1:45 PM EDT documented as of this encounter Care Teams Body Shop Mechanic Relationship Specialty Start Date End Date Eric Isbell Sr., DO PCP - General Family Medicine 03/29/19 documented as of this encounter
--- OUTSIDE RECORDS SUMMARY | 2025-01-09 16:11 | XMS_ITS | Encounter Summary ---
Author Organization [facility] Address [address] [place] [address] Care Team Providers Care Elevator Mechanic Apprentice Name Role Phone House Sr., Eric BUCKLEY Primary Care Provider + Source Comments In the event this information is protected by the Federal Confidentiality of Alcohol and Drug AbusePatient Records regulations: The Federal rules restrict any use of the information to criminally investigate or prosecute any alcohol or drug abuse patient.[facility] Encounter Details Date Type Department Care Team (Late st Contact Info) Description 04/30/2024 Patient Msg Endocrinology [address] [place], [place] [phone] Provider, Cc Endocrine Psychology Welcome Group Scheduling Social History [...] risk 6 04/16/2024 Data from: https://www.neighborhoodatlas.[facility]/. Last address used for calculation spring04/16/2024 Comments [...] Description 01/11/2025 11:15 AM EDT OT/PT/Speech Visit [facility] Speech Therapy [address] [place] [address] Kassy Pang, ZOE-FIRE CREW WORKER [address] [place] [address] consult 01/17/2025 3:15 PM EDT Office Visit [facility] Ophthalmology [address] [facility] [place] [address] Jace Salas, OD [address] [place] [address] Diagnostics, Eye Tech And [address] [phone] Vision changes [H53.9] 07/08/2025 3:00 PM EST Office Visit Endocrinology [address] [place] [address] Gale Kinney, [facility] [address] [place], [place] [phone] 6 mo follow up documented as of this encounter Visit Diagnoses Not on filedocumented in this encounter Care Teams Elevator Mechanic Apprentice Relationship Specialty Start Date End Date Eric Isbell Sr., PCP - General Family Medicine 03/29/19 documented as of this encounter
--- OUTSIDE RECORDS SUMMARY | 2025-01-09 16:11 | XMS_ITS | Encounter Summary ---
Author Organization [facility] Address [address] [place] [address] Care Team Providers Care Airplane Technician Name Role Phone House Sr., Eric BUCKLEY Primary Care Provider + Source Comments In the event this information is protected by the Federal Confidentiality of Alcohol and Drug AbusePatient Records regulations: The Federal rules restrict any use of the information to criminally investigate or prosecute any alcohol or drug abuse patient.[facility] Encounter Details Date Type Department Care Team (Late st Contact Info) Description 12/13/2020 Patient Msg Pediatrics [address] [place] [phone] Joslyn Bland MD [address] [place] [address] Request an Appointment Social History [...] N ot on file 06/02/2020 Data from: https://www.neighborhoodatlas.medicine.[facility]/. Last address used for calculation [...] 12/05/2020 6:49 PM EDCharles Shah RN * Are you blind or do [...] Description 01/11/2025 11:15 AM EDT OT/PT/Speech Visit [facility] Speech Therapy [address] [place] [address] Kassy Pang, [facility]-SP[facility] SORTER [address] [place] [address] consult 01/17/2025 3:15 PM EDT Office Visit [facility] Ophthalmology [address] [facility] [place] [address] Jace Salas, OD [address] [place] [address] Diagnostics, Eye Tech And [address] [facility] [address], [place] [address] Vision changes [H53.9] 07/08/2025 3:00 PM EST Office Visit Endocrinology [address] [place] [address] Gale Kinney, ADOBE LAYER.WELDING OPERATOR [address] [place] [address] 6 mo follow up documented as of this encounter Visit Diagnoses Not on filedocumented in this encounter Care Teams Airplane Technician Relationship Specialty Start Date End Date Eric Isbell Sr., DO PCP - General Family Medicine 03/29/19 documented as of this encounter
--- OUTSIDE RECORDS SUMMARY | 2025-01-09 16:11 | XMS_ITS | Encounter Summary ---
Author Organization [facility] Address [address] [place] [address] Care Team Providers Care Cookie Breaker Name Role Phone House Sr., Eric BUCKLEY Primary Care Provider + Source Comments In the event this information is protected by the Federal Confidentiality of Alcohol and Drug AbusePatient Records regulations: The Federal rules restrict any use of the information to criminally investigate or prosecute any alcohol or drug abuse patient.[facility] Encounter Details Date Type Department Care Team (Late st Contact Info) Description 07/18/2024 Patient Msg Diabetic Education [facility] [address] [place] [phone] Provider, Ccabundio Endo Dietitian Social History Tobacco [...] is lower risk 6 04/16/2024 Data from: https://www.neighborhoodatlas.[facility]/. Last address used for calculation spring04/16/2024 [...] Description 01/11/2025 11:15 AM EDT OT/PT/Speech Visit [facility] Speech Therapy [address] [place] [address] Kassy Pang CCC-NATIONAL FACILITIES MANAGER [address] [place] [address] consult 01/17/2025 3:15 PM EDT Office Visit [facility] Ophthalmology [address] [facility] [place], [place] [phone] Jace Salas, OD [address] [facility] [address] Diagnostics, Eye Tech And [address] [phone] Vision changes [H53.9] 07/08/2025 3:00 PM EST Office Visit Endocrinology [address] [place], [place] [phone] Gale Kinney, FUSING LINE INSPECTOR.[facility] [address] [place], [place] [phone] 6 mo follow up documented as of this encounter Visit Diagnoses Not on filedocumented in this encounter Care Teams Cookie Breaker Relationship Specialty Start Date End Date Eric Isbell Sr., PCP - General Family Medicine 03/29/19 documented as of this encounter
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
--- OUTSIDE RECORDS SUMMARY | 2025-01-09 16:11 | XMS_ITS | Encounter Summary ---
Author Organization [facility] Address [address] [place] [address] Care Team Providers Care Bow Maker Name Role Phone House Sr., Eric BUCKLEY Primary Care Provider + Source Comments In the event this information is protected by the Federal Confidentiality of Alcohol and Drug AbusePatient Records regulations: The Federal rules restrict any use of the information to criminally investigate or prosecute any alcohol or drug abuse patient.[facility] Encounter Details Date Type Department Care Team (Late st Contact Info) Description 05/07/2020 Patient Msg URO/Gynecology [address] [place], [place] [id number] Provider, Ccf Appointment Social History Tobacco Use [...] 12/11/2019 12:44 PM EDT Cielo Hruley RN documented as of this encounter Mental [...] Description 01/11/2025 11:15 AM EDT OT/PT/Speech Visit [facility] Speech Therapy [address] [place] [address] Kassy Pang [facility] [address] [place] [address] consult 01/17/2025 3:15 PM EDT Office Visit [facility] Ophthalmology [address] [place], [place] [phone] Jace Salas, OD [address] [place] [address] Diagnostics, Eye Tech And [address] [address] Vision changes [H53.9] 07/08/2025 3:00 PM EST Office Visit Endocrinology [address] [place] [address] Gale Kinney, ASSEMBLY LINE BRAZER.[facility] [address] [place] [address] 6 mo follow up documented as of this encounter Visit Diagnoses Not on filedocumented in this encounter Additional Health Concerns Infection Onset Date Last Indicated Resolved Time COVID-19 Rule-Out 11/26/2020 12/01/2020 12/02/2020 1:45 PM EDT documented as of this encounter Care Teams Bow Maker Relationship Specialty Start Date End Date Eric Isbell Sr., PCP - General Family Medicine 03/29/19 documented as of this encounter
--- OUTSIDE RECORDS SUMMARY | 2025-01-09 16:11 | XMS_ITS | Encounter Summary ---
Author Organization [facility] Address [address] [place] [address] Care Team Providers Care Junior Financial Analyst Name Role Phone House Sr., Eric BUCKLEY Primary Care Provider + Source Comments In the event this information is protected by the Federal Confidentiality of Alcohol and Drug AbusePatient Records regulations: The Federal rules restrict any use of the information to criminally investigate or prosecute any alcohol or drug abuse patient.[facility] Encounter Details Date Type Department Care Team (Late st Contact Info) Description 04/30/2024 Patient Msg Endocrinology [address] [place] [address] Kelly Stearns LSW [address] [place] [address] resources Social History Tobacco Use [...] is lower risk 6 04/16/2024 Data from: https://www.neighborhoodatlas.medicine.[facility].edu/. Last address used for calculation [address] [...] Description 01/11/2025 11:15 AM EDT OT/PT/Speech Visit [facility] Speech Therapy [address] [place] [address] Kassy Pang [facility]-DIRECT[facility] DIGITAL CATALOGUE [address] [place] [address] consult 01/17/2025 3:15 PM EDT Office Visit [facility] Ophthalmology [address] [place] [address] [place] [address] Jace Salas, OD [address] [place] [address] Diagnostics, Eye Tech And [address] [address] Vision changes [H53.9] 07/08/2025 3:00 PM EST Office Visit Endocrinology [address] [place] [phone] Gale Kinney, INSTRUCTOR BALLROOM DANCING.[address] [phone] 6 mo follow up documented as of this encounter Visit Diagnoses Not on filedocumented in this encounter Care Teams Junior Financial Analyst Relationship Specialty Start Date End Date Eric Isbell Sr., DO PCP - General Family Medicine 03/29/19 documented as of this encounter
--- OUTSIDE RECORDS SUMMARY | 2025-01-09 16:11 | XMS_ITS | Encounter Summary ---
Author Organization [facility] Address [address] [place] [address] Care Team Providers Care Computer Forensic Specialist Name Role Phone Eric Isbell MD Primary Care Provider [phone] Lavonne Davies COPY MANAGER Unavailable [phone] Encounter Details Date Type Department Care Team (Latest Contact Info) Description 01/03/2025 Travel Social History Tobacco Use Types Packs/Day [...] Office Visit [facility] [address] [facility] [address] [place] [address] Sierra Anna, COPY MANAGER [address] [facility] [address] [place] [address] documented as of this encounter Visit Diagnoses Not on filedocumented in this encounter Care Teams Computer Forensic Specialist Relationship Specialty Start Date End Date Eric Isbell MD PCP - General Family Medicine 02/11/23 Lavonne Davies NP [address] [place] [address] [facility] 12/26/23 documented as of this encounter
--- OUTSIDE RECORDS SUMMARY | 2025-01-09 16:11 | XMS_ITS | Encounter Summary ---
Author Organization [employer] Address [id number] [address] [place] [address] Care Team Providers Care Real Estate Developer Name Role Phone Eric Isbell DO Primary Care Provider [phone] Encounter Details Date Type Department Care Team ([facility] st Contact Info) Description [facility]/04[facility]2021 [facility] [address] [place] [address] Ana Cat CNA Social History Tobacco Use [...] documented as of this encounter Care Teams Real Estate Developer Relationship Specialty Start Date End Date Eric Isbell DO [address] [place] [id number] PCP - General Family Medicine 08/16/24 documented as of this encounter
--- OUTSIDE RECORDS SUMMARY | 2025-01-09 16:11 | XMS_ITS | Encounter Summary ---
Author Organization [facility] Address [address] [place] [address] Care Team Providers Care Youth Liaison Officer Name Role Phone House, Eric Boland MD Primary Care Provider [phone] Lavonne Davies RESEARCH PROGRAM MANAGER Unavailable [phone] Reason for Visit * Reason Onset Date Comments Med Refill 01/07/2025 Encounter Details Date Type Department Care Team (Late Contact Info) Description 01/07/2025 Refill [facility] [address] [address] Caleb Easton MD [address] [facility] [address] [phone] Intractable complex partial epilepsy (HCC); Focal epilepsy with impairment of consciousness, intractable (HCC); Epilepsy, 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HCC) Social History Tobacco Use Types Packs/Day [...] Department Care Team (Late Contact Info) Description 02/06/2025 3:00 PM EDT Office Visit [facility] [address] [facility] [address] [place] [address] Sierra Anna, RESEARCH PROGRAM MANAGER [address], [address] [facility] [place] [phone] documented as of this encounter Visit Diagnoses Diagnosis 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
--- OUTSIDE RECORDS SUMMARY | 2025-01-09 16:11 | XMS_ITS | Encounter Summary ---
Author Organization [employer] Address [id number] [address] [place] [address] Care Team Providers Care Oracle Bpm Consultant Name Role Phone Eric Isbell DO Primary Care Provider [phone] Encounter Details Date Type Department Care Team ([facility] Contact Info) Description 09/07/2023 [facility]phone [facility] [address] [place], [place] [phone] Rosalee Tse PA [facility] [place] [address] Social History Tobacco Use Types Packs/Day Years Used Date Smoking Tobacco: Never Smokeless Tobacco: Never Alcohol Use Standard Drinks/Week Comments Not Currently 0 (1 standard drink = 0.6 oz pur e alcohol) [facility] Utilities Answer Date Recorded In the past 12 months has [employer], [employer], oil, or water [employer] threatened to shut off services in your [...] EDT Requested that it be pushed to [facility] PACS documented in this encounter Plan of Treatment Not on file documented as of this encounter Goals Goal Patient Goal Type Associated Problems Recent Progress Patient-Stated? Author <enter goal here> General Yes Jeanna Damon LSW Note: Evaluation of progress towards goal: home with family, self care documented as of this encounter Visit Diagnoses Not on filedocumented in this encounter Additional Health Concerns Infection Onset Date Last Indicated Resolved Time Respiratory Rule-Out 08/16/2024 08/16/2024 025 12:59 PM EST Assessment Noted Time PHQ-9 Depression Total Score: 7 08/26/19 24 8:42 AM EST documented as of this encounter Care Teams Oracle Bpm Consultant Relationship Specialty [place] [address] [place] [address] PCP - General Family Medicine 08/16/24 documented as of this encounter
--- OUTSIDE RECORDS SUMMARY | 2025-01-09 16:11 | XMS_ITS | Encounter Summary ---
Author Organization [facility] Address [address] [place] [address] Care Team Providers Care Sustainability Officer Name Role Phone House, Eric Boland MD Primary Care Provider [phone] Lavonne Davies SUPERVISOR HARD CANDY Unavailable Encounter Details Date Type Department Care Team (Late st Contact Info) Description 01/03/2025 Bamboo flowsheet [facility] [address] [place] [address] Lavonne Davies, SUPERVISOR HARD CANDY [address] [facility] [address], [place] [phone] Social History Tobacco Use Types Packs/Day Years [...] Office Visit [facility] [address] [facility] [address] [place] [address] Sierra Anna, SUPERVISOR HARD CANDY [address] [facility] [address] [place] [phone] documented as of this encounter Visit Diagnoses Not on filedocumented in this encounter Care Teams Sustainability Officer Relationship Specialty Start Date End Date Eric Isbell MD PCP - General Family Medicine 02/11/23 Lavonne Davies NP [address] [place] [address] PCP - [facility] 12/26/23 documented as of this encounter
--- OUTSIDE RECORDS SUMMARY | 2025-01-09 16:11 | XMS_ITS | Encounter Summary ---
Author Organization [facility] Address [address] [place] [address] Care Team Providers Care Java Core Developer Name Role Phone House Sr., Eric BUCKLEY Primary Care Provider + Source Comments In the event this information is protected by the Federal Confidentiality of Alcohol and Drug AbusePatient Records regulations: The Federal rules restrict any use of the information to criminally investigate or prosecute any alcohol or drug abuse patient.[facility] Encounter Details Date Type Department Care Team (Late st Contact Info) Description 10/08/2020 Patient Msg Plastic Surgery [address] [address] Provider, Ccf Cardiac Clearance Social History Tobacco Use Types Packs/Day Years Used Date Smoking Tobacco: Never Smokeless Tobacco: Never Area Deprivation Index Answer Date Jem rded National Score (1-100), lower number is lower ri sk Not on file 06/02/2020 State Score (1-10), lower number is lower risk N ot on file 06/02/2020 Data from: https://www.neighborhoodatlas.medicine.[facility].edu/. Last address used for calculation Not [...] Description 01/11/2025 11:15 AM EDT OT/PT/Speech Visit [facility] Speech Therapy [address] [place] [address] Kassy Pang, [facility] [address] [place] [address] consult 01/17/2025 3:15 PM EDT Office Visit [facility] Ophthalmology [address] [place] [address] [place] [address] Jace Salas, OD [address] [facility] [place] [address] Diagnostics, Eye Tech And [address] [address] Vision changes [H53.9] 07/08/2025 3:00 PM EST Office Visit Endocrinology [address] [place] [address] [phone] Gale Kinney, LAPELER.[facility] [address] [place], [place] [phone] 6 mo follow up documented as of this encounter Visit Diagnoses Not on filedocumented in this encounter Additional Health Concerns Infection Onset Date Last Indicated Resolved Time COVID-19 Rule-Out 11/26/2020 12/01/2020 12/02/2020 1:45 PM EDT documented as of this encounter Care Teams Java Core Developer Relationship Specialty Start Date End Date Eric Isbell Sr., PCP - General Family Medicine 03/29/19 documented as of this encounter
--- OUTSIDE RECORDS SUMMARY | 2025-01-09 16:11 | XMS_ITS | Encounter Summary ---
Author Organization [facility] Address [address] [place] [address] Care Team Providers Care Dental Director Name Role Phone House Sr., Eric BUCKLEY Primary Care Provider + Source Comments In the event this information is protected by the Federal Confidentiality of Alcohol and Drug AbusePatient Records regulations: The Federal rules restrict any use of the information to criminally investigate or prosecute any alcohol or drug abuse patient.[facility] Encounter Details Date Type Department Care Team (Late st Contact Info) Description 03/14/2020 Patient Msg URO/Gynecology [address] [place], [place] [phone] Provider, Ccf chest surgery Social History Tobacco [...] Description 01/11/2025 11:15 AM EDT OT/PT/Speech Visit [facility] Speech Therapy [address] [place] [address] Kassy Pang [facility] [address] [place] [address] consult 01/17/2025 3:15 PM EDT Office Visit [facility] Ophthalmology [address] [facility] [address] [place], [place] [phone] Jace Salas, OD [address] [facility] [place] [address] Diagnostics, Eye Tech And [address] [address] Vision changes [H53.9] 07/08/2025 3:00 PM EST Office Visit Endocrinology [address] [place] [address] Gale Kinney, HYDRO GENERATION SUPERVISOR.[facility] [address] [place], [place] [phone] 6 mo follow up documented as of this encounter Visit Diagnoses Not on filedocumented in this encounter Additional Health Concerns Infection Onset Date Last Indicated Resolved Time COVID-19 Rule-Out 11/26/2020 12/01/2020 12/02/2020 1:45 PM EDT documented as of this encounter Care Teams Dental Director Relationship Specialty Start Date End Date Eric Isbell Sr., PCP - General Family Medicine 03/29/19 documented as of this encounter
--- OUTSIDE RECORDS SUMMARY | 2025-01-09 16:11 | XMS_ITS | Clinical Summary ---
Author Organization [facility] Address [address] [place] [address] Phone Care Team Providers Care Rib Chopper Name Role Phone Eric Isbell DO Primary Care Provider [phone] Social History Tobacco Use Types Packs/Day Years Used Date Smoking Tobacco: Never Assessed Comments Unknown Sex and Gender Information Value Date Recorded Sex Assigned at Female 05/03/2023 1:28 PM EST Legal Sex Female 11:57 AM EST Gender Identity Transgender Male 05/03/2023 1:28 PM EST Sexual Orientation Not on file Plan of Treatment Upcoming Encounters Date Type Department Care Team (Late st Contact Info) Description 01/23/2025 1:10 PM EDT Office Visit [facility] [address] [address] Shantanu Robles MD [facility] [address] [place], [place] [phone] Health Maintenance Due Date Last Done Comments HIV Screening 2001 Lipid Panel 2001 Yearly Adult Physical 2001 MMR Vaccines (1 of 1 - Stand andrey series) 2002 Varicella Vaccines (1 of 2 - 13+ 2-dose series) 2014 HPV Vaccines (1 - 3-dose series) 2016 Meningococcal B Vaccine (1 o f 2 - Standard) 2017 Diabetes Screening 2019 Hepatitis C Screening 2019 Hepatitis B Vaccines (1 of 3 - 19+ 3-dose series) 2020 Cervical Cancer Screening 2022 HPV/Cotest 2022 Pap Smear 2022 DTaP/Tdap/Td Vaccines (1 - Tdap) 2023 COVID-19 Vaccine (1 - 2023-2 5 season) 2024 Influenza Vaccine (#1) 2025 Zoster Vaccines (1 of 2) 2051 Pneumococcal Vaccine: Pediat rics and At-Risk Adult Patients Aged Out 11/24/2022 No longer [place] based on patient's age to complete this topic HIB Vaccines Aged Out No longer eligi [...] patient's age to complete this topic Insurance [facility] Care Teams Rib Chopper Relationship Specialty Start Date End Date Eric Isbell DO [address] [place] [address] PCP - General Family Medicine 01/09/25
--- OUTSIDE RECORDS SUMMARY | 2025-01-09 16:11 | XMS_ITS | Encounter Summary ---
Author Organization [facility] Address [address] [place] [address] Care Team Providers Care Excellence Consultant Name Role Phone Eric Isbell MD Primary Care Provider [phone] Encounter Details Date Type Department Care Team ([facility] Contact Info) Description 10/27/2024 Orders Only [facility] [address] [place] [address] Josh Pang MD [address] [place] [address] Social History Tobacco Use Types [...] Other 10/27/2024 Josh Pang MD CV IMPLANTABLE CARDIAC DEVICE PROCEDURES Final Result documented in this encounter Visit Diagnoses Not on filedocumented in this encounter Care Teams Excellence Consultant Relationship Specialty Start Date End Date Eric Isbell MD [address] [place] [address] PCP - General 02/01/23 documented as of this encounter
--- OUTSIDE RECORDS SUMMARY | 2025-01-09 16:11 | XMS_ITS | Encounter Summary ---
Author Organization [employer] Address [id number] [address] [place] [address] Care Team Providers Care Laundry Machine Operator Name Role Phone Eric Isbell DO Primary Care Provider [phone] Encounter Details Date Type Department Care Team ([facility] st Contact Info) Description 09/26/2023 [facility]phone [facility] [address] [place] [address] Samantha Cruz Social History Tobacco Use Types Packs/Day Years Used Date Smoking Tobacco: Never Smokeless Tobacco: Never Alcohol Use Standard Drinks/Week Comments Not Currently 0 (1 standard drink = 0.6 oz pur e alcohol) [facility] Utilities Answer Date Recorded In the past 12 months has e electric, gas, oil, or water company [...] <enter goal here> General Yes Jeanna Damon, [place] Note: Evaluation of progress towards goal: home with family, self care documented as of this encounter Visit Diagnoses Not on filedocumented in this encounter Additional Health Concerns Infection Onset Date Last Indicated Resolved Time Respiratory Rule-Out 08/16/2024 08/16/2024 025 12:59 PM EST Assessment Noted Time PHQ-9 Depression Total Score: 7 08/26/19 24 8:42 AM EST documented as of this encounter Care Teams Laundry Machine Operator Relationship Specialty Start Date End Date Eric Isbell DO [address] [place] [address] PCP - General Family Medicine 08/16/24 documented as of this encounter
--- OUTSIDE RECORDS SUMMARY | 2025-01-09 16:11 | XMS_ITS | Encounter Summary ---
Author Organization [facility] Address [address] [place] [address] Care Team Providers Care Fitness Leader Name Role Phone House Sr., Eric BUCKLEY Primary Care Provider + Source Comments In the event this information is protected by the Federal Confidentiality of Alcohol and Drug AbusePatient Records regulations: The Federal rules restrict any use of the information to criminally investigate or prosecute any alcohol or drug abuse patient.[facility] Encounter Details Date Type Department Care Team (Late st Contact Info) Description 07/10/2020 Patient Msg Peds Endocrinology [address] [place] [phone] Provider, Ccf approval Social History Tobacco Use Types Packs/Day Years Used Date Smoking Tobacco: Never Smokeless Tobacco: Never Area Deprivation Index Answer Date Jem rded National Score (1-100), lower number is lower ri sk Not on file 06/02/2020 State Score (1-10), lower number is lower risk N ot on file 06/02/2020 Data from: https://www.neighborhoodatlas.medicine.[place].edu/. Last address used for calculation Not on [...] Description 01/11/2025 11:15 AM EDT OT/PT/Speech Visit [facility] Speech Therapy [address] [place] [address] Kassy Pang, ZOE-SECURITIES ANALYST [address] [place] [address] consult 01/17/2025 3:15 PM EDT Office Visit [facility] Ophthalmology [address] [place] [address] [place] [address] Jace Salas, OD [address] [facility] [place] [address] Diagnostics, Eye Tech And [address] [address] Vision changes [H53.9] 07/08/2025 3:00 PM EST Office Visit Endocrinology [address] [place] [address] Gale Kinney, ICE BAG ASSEMBLER.[address] [phone] 6 mo follow up documented as of this encounter Visit Diagnoses Not on filedocumented in this encounter Additional Health Concerns Infection Onset Date Last Indicated Resolved Time COVID-19 Rule-Out 11/26/2020 12/01/2020 12/02/2020 1:45 PM EDT documented as of this encounter Care Teams Fitness Leader Relationship Specialty Start Date End Date Eric Isbell Sr., PCP - General Family Medicine 03/29/19 documented as of this encounter
--- OUTSIDE RECORDS SUMMARY | 2025-01-09 16:11 | XMS_ITS | Encounter Summary ---
Author Organization [facility] Address [address] [place] [address] Care Team Providers Care Leather Scraper Name Role Phone House, Eric Boland MD Primary Care Provider [phone] Lavonne Davies ELECTRICAL TECH Unavailable [phone] Encounter Details Date Type Department Care Team (Late st Contact Info) Description 04/19/2023 Abstract [facility] [address], [place] [address] Caleb Easton MD [address], [place] [address] Social History Tobacco Use Types Packs/Day Years [...] Office Visit [facility] [address] [facility] [address] [place] [address] Sierra Anna NP [address], [facility] [address] [place] [phone] documented as of this encounter Visit Diagnoses Not on filedocumented in this encounter Care Teams Leather Scraper Relationship Specialty Start Date End Date Eric Isbell MD PCP - General Family Medicine 02/11/23 Lavonne Davies NP [address] [place] [address] PCP - [facility] 12/26/23 documented as of this encounter
--- OUTSIDE RECORDS SUMMARY | 2025-01-09 16:11 | XMS_ITS | Encounter Summary ---
Author Organization [facility] Address [address] [place] [address] Care Team Providers Care Aromatherapist Name Role Phone House Sr., Eric BUCKLEY [...] st Contact Info) Description 08/01/2024 Patient Msg [facility] [address] [place], [place] [phone] Provider, Ccf Referral Social History Tobacco Use [...] is lower risk 6 04/16/2024 Data from: https://www.neighborhoodatlas.[facility]/. Last address used for calculation spring04/16/2024 [...] Description 01/11/2025 11:15 AM EDT OT/PT/Speech Visit [facility] Speech Therapy [address] [place] [address] Kassy Pang, [facility] [address] [place] [address] consult 01/17/2025 3:15 PM EDT Office Visit [facility] Ophthalmology [address] [facility] [place] [address] Jace Salas, OD [address] [facility] [place] [address] Diagnostics, Eye Tech And [address] [address] Vision changes [H53.9] 07/08/2025 3:00 PM EST Office Visit Endocrinology [address] [place] [address] Gale Kinney, DAIRY HUSBANDRY WORKER.[facility] [address] [place], [place] [phone] 6 mo follow up documented as of this encounter Visit Diagnoses Not on filedocumented in this encounter Care Teams Aromatherapist Relationship Specialty Start Date End Date Eric Isbell Sr., PCP - General Family Medicine 03/29/19 documented as of this encounter
--- OUTSIDE RECORDS SUMMARY | 2025-01-09 16:11 | XMS_ITS | Encounter Summary ---
Author Organization [facility] Address [address] [place] [address] Care Team Providers Care Fur Ironer Name Role Phone House Sr., Eric BUCKLEY Primary Care Provider + Source Comments In the event this information is protected by the Federal Confidentiality of Alcohol and Drug AbusePatient Records regulations: The Federal rules restrict any use of the information to criminally investigate or prosecute any alcohol or drug abuse patient.[facility] Encounter Details Date Type Department Care Team (Late st Contact Info) Description 06/02/2020 Get Medical Advice Pediatrics [address] [place] [phone] Domenica Rivas MD [address] [place] [address] RE: Non-Urgent Medical Question Social History Tobacco Use Types Packs/Day Years Used Date Smoking Tobacco: Never Smokeless Tobacco: Never Area Deprivation Index Answer Date Jem rded National Score (1-100), lower number is lower ri sk Not on file 06/02/2020 State Score (1-10), lower number is lower risk N ot on file 06/02/2020 Data from: https://www.neighborhoodatlas.medicine.[facility]/. Last address used for calculation Not [...] Description 01/11/2025 11:15 AM EDT OT/PT/Speech Visit [facility] Speech Therapy [address] [place] [address] Kassy Pang, [facility] [address] [place] [address] consult 01/17/2025 3:15 PM EDT Office Visit [facility] Ophthalmology [address] [facility] [place] [address] Jace Salas, OD [address] [facility] [place] [address] Diagnostics, Eye Tech And [address], [place] [address] Vision changes [H53.9] 07/08/2025 3:00 PM EST Office Visit Endocrinology [address] [place] [address] Gale Kinney, CERAMIC RESEARCH ENGINEER.POT RELINER [address] [place] [address] 6 mo follow up documented as of this encounter Visit Diagnoses Not on filedocumented in this encounter Additional Health Concerns Infection Onset Date Last Indicated Resolved Time COVID-19 Rule-Out 11/26/2020 12/01/2020 12/02/2020 1:45 PM EDT documented as of this encounter Care Teams Fur Ironer Relationship Specialty Start Date End Date Eric Isbell Sr., PCP - General Family Medicine 03/29/19 documented as of this encounter
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
--- OUTSIDE RECORDS SUMMARY | 2025-01-09 16:12 | XMS_ITS | Encounter Summary ---
Author Organization [facility] Address [address] [place] [address] Care Team Providers Care Cement Tile Maker Name Role Phone House Sr., Eric BUCKLEY Primary Care Provider + Source Comments In the event this information is protected by the Federal Confidentiality of Alcohol and Drug AbusePatient Records regulations: The Federal rules restrict any use of the information to criminally investigate or prosecute any alcohol or drug abuse patient.[facility] Encounter Details Date Type Department Care Team (Late st Contact Info) Description 06/02/2020 Get Medical Advice PSYC CHILD [facility] [address] [address] [place] [address] [place] [address] [place] [address] RE: Non-Urgent Medical Question Social History Tobacco Use Types Packs/Day Years Used Date Smoking Tobacco: Never Smokeless Tobacco: Never Area Deprivation Index Answer Date Jem rded National Score (1-100), lower number is lower ri sk Not on file 06/02/2020 State Score (1-10), lower number is lower risk N ot on file 06/02/2020 Data from: https://www.neighborhoodatlas.medicine.[facility]/. Last address used for [...] Description 01/11/2025 11:15 AM EDT OT/PT/Speech Visit [facility] Speech Therapy [address] [place] [address] Kassy Pang, ZOE-COATING SUPERVISOR [address] [place] [address] consult 01/17/2025 3:15 PM EDT Office Visit [facility] Ophthalmology [address] [facility] [place], [place] [phone] Jace Salas, OD [address] [facility] [place] [address] Diagnostics, Eye Tech And [address] [id number] Vision changes [H53.9] 07/08/2025 3:00 PM EST Office Visit Endocrinology [address] [place], [place] [phone] Gale Kinney, HELPER/DRIVER.[facility] [address] [place], [place] [phone] 6 mo follow up documented as of this encounter Visit Diagnoses Not on filedocumented in this encounter Additional Health Concerns Infection Onset Date Last Indicated Resolved Time COVID-19 Rule-Out 11/26/2020 12/01/2020 12/02/2020 1:45 PM EDT documented as of this encounter Care Teams Cement Tile Maker Relationship Specialty Start Date End Date Eric Isbell Sr., PCP - General Family Medicine 03/29/19 documented as of this encounter
--- OUTSIDE RECORDS SUMMARY | 2025-01-09 16:12 | XMS_ITS | Encounter Summary ---
Author Organization [facility] Address [address] [place] [address] Care Team Providers Care Miller Apprentice Name Role Phone Eric Isbell DO Primary Care Provider [phone] Encounter Details Date Type Department Care Team (Late st Contact Info) Description 11/29/2022 Telephone [facility] [address] [facility] [address] [place] [address] Tania Teixeira Social History Tobacco Use Types [...] on filedocumented in this encounter Care Teams Miller Apprentice Relationship Specialty Start Date End Date Eric Isbell DO PCP - General Family Medicine 03/03/21 documented as of this encounter
--- OUTSIDE RECORDS SUMMARY | 2025-01-09 16:12 | XMS_ITS | Encounter Summary ---
Author Organization [facility] Address [address] [place] [address] Care Team Providers Care Sludge Control Attendant Name Role Phone House Sr., Eric BUCKLEY Primary Care Provider + Source Comments In the event this information is protected by the Federal Confidentiality of Alcohol and Drug AbusePatient Records regulations: The Federal rules restrict any use of the information to criminally investigate or prosecute any alcohol or drug abuse patient.[facility] Reason for Visit * Reason Comments Ambulatory Social Work Encounter Details Date Type Department Care Team (Late st Contact Info) Description 01/07/2025 Telephone Endocrinology [address] [place] [address] [place] [address] [place] [address] Ambulatory Social Work Social History Tobacco Use Types Packs/Day Years Used Date Smoking Tobacco: Never Smokeless Tobacco: Never Alcohol Use Standard Drinks/Week Comments Not Currently 0 (1 standard drink = 0.6 oz pur e alcohol) Area Deprivation Index Answer Date Jem rded National Score (1-100), lower number is lower ri sk 76 04/16/2024 State Score (1-10), lower number is lower risk 6 04/16/2024 Data from: https://www.neighborhoodatlas.medicine.[facility]/. Last address used for calculation [address] [...] Charles Orellana RN documented in this encounter Miscellaneous Notes * Telephone Encounter - Trina Leone LSW - 01/07/2025 1:35 PM EDT Endocrinology & Metabolism Social Work Progress Note Provider Action / FYI N/A Karis Kovacs [phone] Type of Contact: telephone Endocrine ADMIN PROG COORD Referral Reason: Appointment Scheduling Assistance/General Appointment Needs Contact Made?: No- lock up worker left a voicemail with her name, number, and requesting a return phone call. Note/Intervention: lock up worker calls Patient to offer assistance making follow up appointments asordered. lock up worker leaves Patient a voicemail with callback number and sends a FIA Formula E message. [facility] referral placed: No Signature: PEG Benton LSW Patient Name: Karis Kovacs Date: 01/07/2025 Time: 1:36 PM Pager/Contact #: [phone] During this patient contact I spent approximately 10 minutes in reviewing the patient's chart and counseling regarding community resources and coordinating care. documented in this encounter Plan of Treatment Upcoming Encounters Date Type Department Care Team (Late st Contact Info) Description 01/11/2025 11:15 AM EDT OT/PT/Speech Visit [facility] Speech Therapy [address] [place] [address] Kassy Pang CCC-CELL TOWER CLIMBER [address] [place] [address] consult 01/17/2025 3:15 PM EDT Office Visit [facility] Ophthalmology [address] [place] [address] [place] [address] Jace Salas, OD [address] [place] [address] Diagnostics, Eye Tech And [address], [place] [address] Vision changes [H53.9] 07/08/2025 3:00 PM EST Office Visit Endocrinology [address] [place] [address] Gale Kinney, CERTIFIED PROSTHETIST VICE PRESIDENT.[facility] [address] [place] [address] 6 mo follow up documented as of this encounter Visit Diagnoses Not on filedocumented in this encounter Care Teams Sludge Control Attendant Relationship Specialty Start Date End Date Eric Isbell Sr., PCP - General Family Medicine 03/29/19 documented as of this encounter
--- OUTSIDE RECORDS SUMMARY | 2025-01-09 16:12 | XMS_ITS | Clinical Summary ---
Author Organization [facility] Address [address] [place] [address] Care Team Providers Care Veneer Sample Maker Name Role Phone Eric Isbell DO Primary Care Provider [phone] Allergies Active Allergy Reactions Criticality Noted Date [...] - 2023-2 5 season) 2024 INFLUENZA VACCINE (#1) 2025 PNEUMOCOCCAL VACCINE SERIES Aged Out No longer eligible based on patient's age to complete this topic Insurance Care Teams Veneer Sample Maker Relationship Specialty Start Date End Date Eric Isbell DO PCP - General Family Medicine 03/03/21
--- OUTSIDE RECORDS SUMMARY | 2025-01-09 16:12 | XMS_ITS | Clinical Summary ---
Author Organization [facility] Address [address] [place], [place] [id number] Care Team Providers Care Restaurant District Manager Name Role Phone House , Eric [...] tablet Take 1 tablet by mouth. Active Blood-Glucose Sensor (FREESTYLE RHIANNA 3 PLUS SENSOR) deviIndications:Hy poglycemia Use to check glucose. Change every 15 days. 6 each 3 01/05/20 25 Active Active Problems Problem Noted Date Diagnosed Date Type 2 diabetes mellitus without retinopathy Vision changes 10/08/2024 Myopia, bilateral 10/08/2024 Mild protein-calorie malnutrition 12/07/2019 Assessment & Plan (12/11/2019 8:12 AM EDT): Assessment: Noted on admission PLAN: - Nutrition consult placed - F/U with [facility] Car[facility] Spindle/PCP as outpatient Assessment & Plan (12/10/2019 8:23 [...] - Nutrition consult placed - F/U with [facility]indle/PCP as outpatient Assessment & Plan (12/10/2019 8:21 [...] 019 Overview (05/06/2020): Continue HRT with Dr Baldo Dorado for top surgery Assessment & Plan (12/11/2019 [...] injections every two weeks. Was due on 12/01 but did not take it and did [...] old adult who was admitted to the [facility] EM[facility] on 12/05/2019 until 12/11/2019 for [...] home today - CBT with previously established tax audit manager or Dr. Hancock as outpatient Panic attacks [...] Date Type Department Care Team Description 01/07/2025 Telephone Endocrinology [address] [place] [address] Trina Leone LSW Ambulatory Social Work 01/04/2025 3:00 PM EDT Office Visit Endocrinology [address] [place] [address] Gale Kinney, LEGAL DIRECTOR.HELMET HAT BRIM CUTTER Hypoglycemia (Primary Dx); Vision changes; Gastroparesis; Abnormal weight loss; Mild protein-calorie malnutrition (HCC); Emesis, persistent 01/04/2025 Travel from Last 3 Months Family History Medical [...] is lower risk 6 04/16/2024 Data from: https://www.neighborhoodatlas.[facility].edu/. Last address used for calculation [...] Pulse 77 01/04/2025 3:06 PM EDT Temperature 36.6 C (97.9 F) 12/10/2020 1:52 PM EDT Respiratory Rate 17 12/05/2020 3:54 PM EDT Oxygen Saturation 99% 01/04/2025 3:06 PM EDT Inhaled Oxygen Concentration - - Weight 41.7 kg (91 lb 13.2 oz) 01/04/2025 3:06 P M EDT Height 157.5 cm (5' 2.01 ) 01/04/2025 3:06 PM ED T Body Mass Index 16.79 01/04/2025 3:06 PM EDT Plan of Treatment Upcoming Encounters Date Type Department Care Team (Late st Contact Info) Description 01/11/2025 11:15 AM EDT OT/PT/Speech Visit [facility] Speech Therapy [address] [place] [address] Kassy Pang CCC-ARMORED CAR GUARD AND DRIVER [address] [place] [address] consult 01/17/2025 3:15 PM EDT Office Visit [facility] Ophthalmology [address] [facility] [place], [place] [phone] Jace Salas, OD [address] [facility] [place] [address] Diagnostics, Eye Tech And [address] [address] Vision changes [H53.9] 07/08/2025 3:00 PM EST Office Visit Endocrinology [address] [place], [place] [phone] Gale Kinney, ROSA.HELMET HAT BRIM CUTTER [address] [place], [place] [phone] 6 mo follow up Health Maintenance Due Date Last Done Comments Diabetic Foot Exam 2011 Peds To Adult Transition Ini tial Discussion 2013 Peds To Adult Transition Annual Assessment 2015 HPV Vaccine (1 - 3-dose series) 2016 Meningococcal B Vaccine (1 o f 2 - Standard) 2017 Annual PCP Team Chronic Disease Visit 2019 Chlamydia Screening (18-24) 2019 Depression Screening 2019 GC (Gonorrhea) Screening (18-24) 2019 HIV Screening 2019 Hepatitis C Screening 2019 LDL Cholesterol 03/29/2020 03/29/2019 Hepatitis B Vaccine (1 of 3 - 19+ 3-dose series) 2020 Cervical Cancer Screening 2022 Pneumococcal Vaccine (2 of 2 - PCV) 11/25/202311/24 Covid-19 Vaccine ( - season) 2024 Influenza Vaccine (#1) 2025 Urine Albumin:Creatinine Ratio 05/11/2025 05/11/2024 HbA1C 07/07/2025 01/04/2025, 04/16/2024 Dilated Retinal Exam 10/08/2025 10/08/2024 DTaP,Tdap,Td Vaccine (2 - Td or Tdap) 08/23/2033 Procedures Procedure Name Priority Date/Time Associated Diagnosis Comments HEMOGLOBIN A1C (POC) Routine 01/04/2025 3:15 PM EDT ALBUMIN/CREATININE RATIO, URINE Routine 05/11/2024 9:56 AM EST Other specified diabetes mellitus with other specified complication, without long-term current use of insulin (HCC) LIPID PANEL, FASTING Routine 03/29/2019 2:55 PM EDT 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 However, the [place] Diabetes Association guidelines indicate that patients with [...] cell lifespan. 01/04/2025 3:15 PM EDT Gale Kinney LEGAL DIRECTOR.HELMET HAT BRIM CUTTER POC TESTING Final Result [facility] POINT OF CARE [facility] [place] [address] [place], [place] * ALBUMIN/CREATININE RATIO, URINE (05/11/2024 9:56 AM EST) Creatinine, Ur Random (UCRR) 94.6 20.0 - 300.0 mg/dL 05/11/2024 5:22 PM EST [facility] Albumin, Urine Random <12.0 mg/L 05/11/2024 5:22 PM EST [facility] Albumin/Creat Ratio <13 <30 mg/g 05/11/2024 5:22 PM EST [facility] Comment: Adult Male and Female Nephrotic [...] EST 05/11/2024 9:56 AM EST Gale Kinney LEGAL DIRECTOR.HELMET HAT BRIM CUTTER LABORATORY Final Result [facility] [address] [address], * (ABNORMAL) LIPID PANEL BASIC (03/29/2019 2:55 PM EDT) Cholesterol, Total 154 <170 mg/dL 03/30/2019 1:44 AM EDT [facility] Comment: <170 mg/dL, Acceptable 170-199 mg/dL, Borderline high >199 mg/dL, High Triglyceride 106(H) <90 mg/dL 03/30/2019 1:44 AM EDT [facility] Comment: <90 mg/dL, Acceptable 90-129 mg/dL, Borderline high >129 mg/dL, High HDL Cholesterol 51 >45 mg/dL 9 1:44 AM EDT [facility] Comment: >45 mg/dL, Acceptable 40-45 mg/dL, Borderline <40 mg/dL, Low LDL Cholesterol, Calculated 82 <110 mg/dL 03/30/2019 1:44 AM EDT [facility] Comment: <110 mg/dL, Acceptable 110-129 mg/dL, Borderline high >129 mg/dL, High Non HDL Cholesterol 103 <120 mg/dL 03/30/2019 1:44 AM EDT [facility] Comment: <120 mg/dL, Acceptable 120-144 mg/dL, Borderline high >144 mg/dL, High Fasting Time 12 hrs 03/29/2019 3:00 PM EDT [facility] VLDL Cholesterol 21(H) <18 mg/dL 03/30/20 19 1:44 AM EDT [facility] TC:HDL Ratio 3.02 <3.76 03/30/2019 1:44 AM EDT [facility] LDL:HDL Ratio 1.61 <2.42 03/30/2019 1:44 AM EDT [facility] Comment: Reference: 1. Expert Panel on Integrated Guidelines for Cardiovascular Health and Risk Reduction in Children and Adolescents: National Heart, Lung and Blood Union. Pediatrics. 2011: 128(Suppl 5):X742-875. Blood specimen (specimen) 03/29/2019 2:55 PM EDT 03/29/2019 3:00 PM EDT Joslyn Bland MD LABORATORY Final Result Performing Organization Address City/State/[facility] de Phone Number [facility] [address] [place] [address] [facility] [address] [place] [address] [facility] [id number] [place] [address] from Last 3 Months or Most Recently Relevant to Health Maintenance Insurance MEDICAID Advance Directives Documents on File Type Date Recorded Patient Md Do Resident Urgent Care Expl anation Advance Directive(s) 11/25/2020 10:24 AM Care Teams Restaurant District Manager Relationship Specialty Start Date End Date Eric Isbell Sr., DO PCP - General Family Medicine 03/29/19
--- OUTSIDE RECORDS SUMMARY | 2025-01-09 16:12 | XMS_ITS | Clinical Summary ---
Author Organization Resonates tem Address [id number] [address] [place] [address] Care Team Providers Care Pourer Name Role Phone Eric Isbell DO Primary Care Provider [phone] Allergies Active Allergy Reactions Criticality Noted Date [...] Diagnosed Date Feeling of incomplete bladder emptying Overview (09/03/2024): Has improved even off Myrbetriq which he can stop taking. 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 3 months Seizure-like activity 08/26/2023 Seizures 08/25/2023 [...] adulthood 11/04/2021 08/16/2024 Right kidney stone 10/15/2021 Overview (09/08/2023): 09/08/23: CT uploaded. He has [...] center for the back pain. Referral to necktie operator pockets and pieces for the ovarian cyst. Previous ultrasound showed [...] Encounters Date Type Department Care Team Description 12/15/2024 10:00 PM EDT - 12/16/2024 12:26 AM EDT Emergency [facility] - Emergency [address] [place] [address] Kana Blanchard MD Seizure-like activity ([facility]) (Primary Dx) Discharge Disposition: Home 12/15/2024 Travel 11/20/2024 Telephone [facility] Pulmonary/Sleep Medicine [address] [place] [address] Jaquelin Sheth 11/15/2024 8:00 PM EDT Clinical Support [facility] Sleep Disorders [address] [place] [phone] Sleep disorder 11/13/2024 Travel 10/12/2024 [facility] [address] [place] [address] [place] [phone] Lavonne Davies APRN-MANAGER OF FINANCIAL Sleep Lab (PSG) 10/11/2024 [facility]phone [facility] [address] [place] [address] [place] [phone] Transcribe, Orders Support User from Last 3 Months Immunizations Immunization Administration [...] drink = 0.6 oz pur e alcohol) [facility] Utilities Answer Date Recorded In [...] got money to buy more. Never True 12/15/2024 Within the past 12 months th e food we bought just didn't last and we didn't have money to get more. Never True 12/15/2024 Purpose - Life Answer Date Recorded Purpose and direction in life Unknown Comments No Sex and Gender Information Value Date Recorded Sex Assigned at Female 10/12/2020 2:44 PM EDT Legal Sex Female 3:31 PM EDT Gender Identity Male 10/12/2020 2:44 PM EDT Sexual Orientation Not on file Last Filed Vital Signs Vital Sign Reading Time Taken Comments Blood Pressure 116/89 12/15/2024 10:05 PM EDT Pulse 104 12/15/2024 10:05 PM EDT Temperature 36.7 C (98 F) 12/15/2024 10:09 PM EDT Respiratory Rate 17 12/15/2024 10:05 PM EDT Oxygen Saturation 97% 12/15/2024 10:05 PM EDT Inhaled Oxygen Concentration - - Weight 44.9 kg (99 lb) 12/15/2024 10:05 PM EDT Height 157.5 cm (5' 2 ) 12/15/2024 10:05 PM EDT Body Mass Index 18.11 12/15/2024 10:05 PM EDT Plan of Treatment Health Maintenance Due Date Last Done Comments Adult BMI Follow Up Plan 2019 DTaP,Tdap and Td Vaccines (1 - Tdap) 2020 Pap Smear 2022 Depression Screening 11/24/2024 11/25/2023 Influenza Vaccine 02/25/2025 Adult BMI Screening 12/15/2025 12/15/2024 Tobacco Screening 12/15/2025 12/15/2024 Goals Goal Patient Goal Type Associated Problems Recent Progress Patient-Stated? Author <enter goal here> General Yes Jeanna Damon, TRIMMER LOADER Note: Evaluation of progress towards goal: home with family, self care goal General Yes Rosalee Chavez, NATHANIEL Note: Evaluation of progress towards goal: Patients goal is to have a safe discharge. Medical Devices Explanted Type Area Boom Operator Device Identifier Shelf Expiration Date Model / Serial / Lot Stent Uret 6fr 24cm Pgtl Crv Tpr Tip Bldr Mrk Lp Lg Inr Lum Rpl [id number] - [id number] Implanted:Qty: 1 on 11/24/2021 by Logan Mckeon MD at [facility] Explanted:Qty: 1 on 12/09/2021 by Logan Mckeon MD Stent Right: Ureter [employer] 08/18/2024 [id number] / / [id number] Procedures Procedure Name Priority Date/Time Associated Diagnosis Comments TROP I, HIGH SENSITIVITY 1 HOUR STAT 12/15/2024 11:25 PM EDT EXTRA TUBES BLUE TOP Routine 12/15/2024 10:41 PM EDT EXTRA TUBES Routine 12/15/2024 10:41 PM EDT TROPONIN I, HIGH SENSITIVITY 0 HOUR STAT 12/15/2024 10:24 PM EDT ETHANOL STAT 12/15/2024 10:24 PM EDT MAGNESIUM STAT 12/15/2024 10:24 PM EDT TROPONIN I, HIGH SENSITIVITY 0 HOUR STAT 12/15/2024 10:24 PM EDT LACTATE W/ REFLEX STAT 12/15/2024 10: 24 PM EDT COMPREHENSIVE METABOLIC PANEL STAT 12/15/2024 10:24 PM EDT CBC WITH AUTO DIFFERENTIAL STAT 12/15/2024 10:24 PM EDT ECG 12-LEAD STAT 12/15/2024 10:02 PM EDT POLYSOMNOGRAPHY 4 OR MORE PARAMETERS Routine 11/15/2024 10:21 PM EDT Sleep disorder from Last 3 Months Results * Troponin I, High Sensitivity 1 Hour (12/15/2024 11:25 PM EDT) TROPONIN I, HIGH SENSITIVITY <2 <16 ng/L 12/15/2024 11:57 PM EDT [facility] Blood Venous blood / Unknown 12/15/2024 11:25 PM EDT 12/15/2024 11:28 PM EDT us Kana Blanchard MD LAB BLOOD ORDERABLES Final R esult [facility] [address] [place] [address], * Light Blue Top (12/15/2024 10:41 PM EDT) Extra Tube Auto Resulted 12/16/2024 12:02 AM EDT [facility] Blood Venous blood / Unknown 12/15/2024 10:41 PM EDT 12/15/2024 10:41 PM EDT us Kana Blanchard MD LAB BLOOD ORDERABLES Final R esult [address] [place] [address], [place] * Troponin I, High Sensitivity 0 Hour (12/15/2024 10:24 PM EDT) TROPONIN I, HIGH SENSITIVITY <2 <16 ng/L 12/15/2024 11:24 PM EDT [facility] Blood Venous blood / Unknown 12/15/2024 10:24 PM EDT 12/15/2024 10:40 PM EDT us Kana Blanchard MD LAB BLOOD ORDERABLES Final R esult Performing Organization Address City/[facility]/ZIP Co de Phone Number [address] [place] [address], [place] * Lactate w/ Reflex (12/15/2024 10:24 PM EDT) LACTATE W/REFLEX 1.5 0.4 - 2.0 mmol/L 12/15/2024 10:59 PM EDT [facility] Blood Venous blood / Unknown 12/15/2024 10:24 PM EDT 12/15/2024 10:40 PM EDT Narrative [facility] - 12/15/2024 10:59 PM EDT Result did not trigger repeat Lactate, re-order if needed. us Kana Blanchard MD LAB BLOOD ORDERABLES Final R esult [address] [place] [address], [place] * CBC auto differential (12/15/2024 10:24 PM EDT) [facility] Signature WBC 8.0 4 - 11 x10E9/L 12/15/2024 10:52 PM EDT [facility] RBC Count 4.43 4.1 - 5.2 X10E12/L 12/15/2024 10:52 PM EDT [facility] Hemoglobin 13.7 12 - 15.5 g/dL 12/15/2024 10:52 PM EDT [facility] Hematocrit 39.7 35 - 47 % 12/15/2024 10:52 PM EDT [facility] MCV 90 fL 12/15/2024 10:52 PM EDT [facility] MCH 30.9 pg 12/15/2024 10:52 PM EDT [facility] MCHC 34.5 g/dL 12/15/2024 10:52 PM EDT [facility] RDW 13.1 % 12/15/2024 10:52 PM EDT [facility] Platelet Count 233 150 - 450 X10E9/L 12/15/2024 10:52 PM EDT [facility] MPV 8.2 fL 12/15/2024 10:52 PM EDT [facility] Neutrophils % 63.8 % 12/15/2024 10:52 PM EDT [facility] Lymphocytes % 29.8 % 12/15/2024 10:52 PM EDT [facility] Monocytes % 5.7 % 12/15/2024 10:52 PM EDT [facility] Eosinophils % 0.2 % 12/15/2024 10:52 PM EDT [facility] Basophils % 0.5 % 12/15/2024 10:52 PM EDT [facility] Neutrophils Absolute (A) 5.1 1.5 - 6.6 10*3/uL 12/15/2024 10:52 PM EDT [facility] Lymphocytes Absolute 2.4 1.0 - 3.5 10*3/uL 12/15/2024 10:52 PM EDT [facility] Monocytes Absolute 0.5 0.0 - 0.9 10*3/uL 12/15/2024 10:52 PM EDT [facility] Eosinophils Absolute 0.0 0.0 - 0.4 10*3/uL 12/15/2024 10:52 PM EDT [facility] Basophils Absolute 0.0 0.0 - 0.2 10*3/uL 12/15/2024 10:52 PM EDT [facility] Differential Type AUTOMATED DIFFERENTIAL 12/15/2024 10:52 PM EDT [facility] Blood Venous blood / Unknown 12/15/2024 10:24 PM EDT 12/15/2024 10:40 PM EDT Kana Blanchard MD LAB BLOOD ORDERABLES Final R esult Performing Organization Address City/[facility]/ZIP Co de Phone Number [address] [place] [address], [place] * Magnesium (12/15/2024 10:24 PM EDT) MAGNESIUM 2.1 1.8 - 2.6 mg/dL 12/15/2024 11:00 PM EDT [facility] Blood Venous blood / Unknown 12/15/2024 10:24 PM EDT 12/15/2024 10:40 PM EDT Kana Blanchard MD LAB BLOOD ORDERABLES Final R esult [address] [place] [address], [place] * Ethanol (12/15/2024 10:24 PM EDT) ETHANOL <0.010 <=0.080 g/dL 12/15/2024 11:00 PM EDT [facility] Comment: This report is intended for use in clinical monitoring or management of patients. Blood Venous blood / Unknown 12/15/2024 10:24 PM EDT 12/15/2024 10:40 PM EDT us Kana Blanchard MD LAB BLOOD ORDERABLES Final R esult [facility] [address] [facility] [place] [address], * (ABNORMAL) Comprehensive metabolic panel (12/15/2024 10:24 PM EDT) SODIUM 141 134 - 146 mmol/L 12/15/2024 11:00 PM EDT [facility] POTASSIUM 3.5 3.5 - 5.0 mmol/L 12/15/2024 11:00 PM EDT [facility] CHLORIDE 114(H) 98 - 109 mmol/L 12/15/2024 11:00 PM EDT [facility] CARBON DIOXIDE 21(L) 22 - 32 mmol/L 12/15/2024 11:00 PM EDT [facility] ANION GAP 6 mmol/L 12/15/2024 11:00 PM EDT [facility] BLOOD UREA NITROGEN 10 5 - 23 mg/dL 12/15/2024 11:00 PM EDT [facility] CREATININE 0.68(L) 0.70 - 1.00 mg/dL 12/15/2024 11:00 PM EDT [facility] Comment:METHOD TRACEABLE TO IDMS STANDARD GLUCOSE 98 65 - 99 mg/dL 12/15/2024 11:00 PM EDT [facility] CALCIUM 9.2 8.5 - 10.5 mg/dL 12/15/2024 11:00 PM EDT [facility] TOTAL PROTEIN 7.2 6.0 - 8.0 g/dL 12/15/2024 11:00 PM EDT [facility] ALBUMIN 4.5 3.2 - 5.3 g/dL 12/15/2024 11:00 PM EDT [facility] ALKALINE PHOSPHATASE 52 39 - 130 U/L 12/15/2024 11:00 PM EDT [facility] AST 20 <=41 U/L 12/15/2024 11:00 PM EDT [facility] ALT 10 <=31 U/L 12/15/2024 11:00 PM EDT [facility] BILIRUBIN,TOTAL 0.6 0.3 - 1.2 mg/dL 12/15/2024 11:00 PM EDT [facility] EGFR Non-Race Dependent >90 >=60 ml/min/1.7 3sq.m 12/15/2024 11:00 PM EDT [facility] Comment: eGFR not reported due to non-numeric value for Creatinine. Reported eGFR is based on the CKD-EPI 2020 equation that does not use a race coefficient. Blood Venous blood / Unknown 12/15/2024 10:24 PM EDT 12/15/2024 10:40 PM EDT Kana Blanchard MD LAB BLOOD ORDERABLES Final R esult Performing Organization Address City/[facility]/ZIP Co de Phone Number [facility] [address] [place] [address], * ECG 12 lead (12/15/2024 10:02 PM EDT) 12/15/2024 10:0 2 PM EDT Narrative [facility] - 12/17/2024 1:23 AM EDT Kana Blanchard MD ECG ORDERABLES Final Result Performing Organization Address City/[facility]/ZIP Co de Phone Number [facility] * [facility] Diagnostic (11/15/2024 10:21 PM EDT) 11/15/2024 10:2 1 PM EDT Narrative [facility] - 11/16/2024 10:15 AM EDT INTERPRETED us Lavonne Davies FITNESS PLAN COORDINATOR-MANAGER OF FINANCIAL SLEEP CENTER [facility] LAL Final Result [facility] from Last 3 Months Insurance [place] Advance Directives * Full Code (Latest Code Status on File) Date Activated Date Inactivated Comments 11/25/2023 2:59 PM 12/01/2023 1:25 AM * Full Code Date Activated Date Inactivated Comments 08/26/2023 2:31 AM 08/26/2023 4:26 PM * Full Code Date Activated Date Inactivated Comments 08/25/2023 6:03 PM 08/26/2023 12:43 AM Care Teams Pourer Relationship Specialty Start Date End Date Eric Isbell DO [address] [place] [address] PCP - General Family Medicine 08/16/24
--- OUTSIDE RECORDS SUMMARY | 2025-01-09 16:12 | XMS_ITS | Encounter Summary ---
Author Organization [facility] Address [facility] [place] [address] Care Team Providers Care Booster Pump Operator Name Role Phone House Sr., Eric BUCKLEY Primary Care Provider + Source Comments In the event this information is protected by the Federal Confidentiality of Alcohol and Drug AbusePatient Records regulations: The Federal rules restrict any use of the information to criminally investigate or prosecute any alcohol or drug abuse patient.[facility] Encounter Details Date Type Department Care Team (Latest Contact Info) Description 01/04/2025 Travel Social History Tobacco Use Types Packs/Day Years Used Date Smoking Tobacco: Never Smokeless Tobacco: Never Alcohol Use Standard Drinks/Week Comments Not Currently 0 (1 standard drink = 0.6 oz pur e alcohol) Area Deprivation Index Answer Date Jem rded National Score (1-100), lower number is lower ri sk 76 04/16/2024 State Score (1-10), lower number is lower risk 6 04/16/2024 Data from: https://www.neighborhoodatlas.medicine.[facility].edu/. Last address used for calculation [address] [facility] 04/16/2024 Comments No Sex and Gender Information [...] Description 01/11/2025 11:15 AM EDT OT/PT/Speech Visit [facility] Speech Therapy [address] [place] [address] Kassy Pang [facility]-METAL FINISH INSPECTOR [address] [place] [address] consult 01/17/2025 3:15 PM EDT Office Visit [facility] Ophthalmology [address] [place] [address] Jace Salas, OD [address] [place] [address] Diagnostics, Eye Tech And [address] [address] Vision changes [H53.9] 07/08/2025 3:00 PM EST Office Visit Endocrinology [address] [place] [phone] Gale Kinney, CARE TRANSITIONS MANAGER.[facility] [address] [place] [address] 6 mo follow up documented as of this encounter Visit Diagnoses Not on filedocumented in this encounter Care Teams Booster Pump Operator Relationship Specialty Start Date End Date Eric Ibsell Sr., PCP - General Family Medicine 03/29/19 documented as of this encounter
--- OUTSIDE RECORDS SUMMARY | 2025-01-09 16:12 | XMS_ITS | Encounter Summary ---
Author Organization [facility] Pert[facility] enter Address [address] [place] [address] Care Team Providers Care Affiliate Manager Name Role Phone Eric Isbell DO Primary Care Provider [phone] Reason for Visit * Reason Onset Date Comments Cancellation 04/23/2021 Encounter Details Date Type Department Care Team (Late st Contact Info) Description 04/23/2021 Telephone Neurology [facility] Outpatient Care [address] [address] Traci Godfrey Cancellation Social History [...] on filedocumented in this encounter Care Teams Affiliate Manager Relationship Specialty Start Date End Date Sukhi DO Eric PCP - General Family Medicine 03/03/21 documented as of this encounter
--- OUTSIDE RECORDS SUMMARY | 2025-01-09 16:12 | XMS_ITS | Encounter Summary ---
Author Organization [employer] [facility] Address [facility] [place]-[id number] [address] [place] [address] Care Team Providers Care Engineering Technologist Name Role Phone Eric Isbell DO Primary Care Provider [phone] Reason for Visit * Reason Onset Date Comments reschd appt 04/27/2022 Encounter Details Date Type Department Care Team (Late st Contact Info) Description 04/27/2022 [facility]phone [facility] [address] [place] [address] Chika Washington reschd appt Social [...] documented as of this encounter Care Teams Engineering Technologist Relationship Specialty Start Date End Date Eric Isbell DO [address] [id number] PCP - General Family Medicine 08/16/24 documented as of this encounter
[2025-01-09 16:13] VITALS: BP 114/84; PULSE 70; O2SAT 100; BMI 16.6
--- NOTE | 2025-01-09 16:19 | XR_ITS ---
The [address] [address] Patient Name: BHAVNA VILLAR MRN: [id number] date: 2000 Sex: F Assigned Patient Location: ER Current Patient Location: ER Accession/Order Number: [id number] Exam Date: 01/09/2025 17:03 Report Date: 01/09/2025 17:06 At the request of: AUDREY HOPPER MD Procedure: XR abdomen 1V XR abdomen 1V 01/09/2025 4:42 PM SIGNS AND SYMPTOMS: ^Possible constipation PROTOCOL: Frontal radiograph of the abdomen and pelvis COMPARISON: 06/18/2024 FINDINGS: There is a moderate to large amount stool within the colon. There is nonobstructive bowel gas pattern. No radiographic evidence of free air. The bony structures are within normal limits. XR/XR abdomen 1V IMPRESSION: There is a moderate to large amount stool within the colon. This is consistent with a history of constipation. No bowel obstruction or free air. Impression dictated by: Chon Martinez M.D. 01/09/2025 5:06 PM Dictation Location: [place] [address] Electronically authenticated by: [id number] Y Date: 01/09/2025 17:06
--- NOTE | 2025-01-09 16:20 | ED.GENADUL1 ---
HPI HPI - General Adult General Chief complaint: Abdominal Pain Stated complaint: CONSTIPATED Time Seen by Provider: 01/09/25 16:15 Source: patient Mode of arrival: walk-in Limitations: no limitations History of Present Illness HPI narrative: 24-year-old female transitioning to male presents for constipation. The patient states they have not had a bowel movement for a week. No vomiting or diarrhea. MiraLAX and laxative pill was taken without result. The patient has had evaluation by GI specialist for this in the past and no cause has been found. Related Data Home Medications ?Medication ?Instructions ?Recorded ?Confirmed clobazam 10 mg tablet 10 mg PO .qhs 08/23/23 01/09/25 midazolam 5 mg/spray (0.1 mL) 1 spray intranasal PRN PRN FOR 08/24/23 01/09/25 nasal spray (Nayzilam) SEIZURES metoprolol succinate 25 mg 25 mg PO DAILY 01/28/24 01/09/25 tablet,extended release 24 hr dexmethylphenidate 5 mg 10 mg PO DAILY 07/07/24 01/09/25 capsule,extended release [id number] lamotrigine 200 mg tablet 200 mg PO Q12H 07/07/24 01/09/25 brivaracetam 100 mg tablet 100 mg PO BID 07/08/24 01/09/25 (Briviact) azelaic acid 15 % topical gel 1 applic topical DAILY 08/14/24 01/09/25 ondansetron HCl 4 mg tablet 4 mg PO Q8H PRN nausea and vomiting 08/14/24 01/09/25 zonisamide 25 mg capsule 25 mg PO .QHS 01/09/25 01/09/25 Previous Rx's ?Medication ?Instructions ?Recorded promethazine 25 mg tablet 25 mg PO TID PRN nausea and 12/29/24 vomiting 2 days #6 tabs Allergies Allergy/AdvReac Type Severity Reaction Status Date / Time codeine Allergy Unknown Rash Verified 01/09/25 16:06 Opioid HPI Opioid Management Most Recent Opioid Data: Last Pain Scale 5 Today, 16:13 Ur Phencyclidine Scrn, (NEGATIVE) Negative 07/07/24, 23:48 Review of Systems ROS Narrative A ten point review of systems is negative except as noted above. PFSH PFSH Social History (Reviewed 01/12/25 @ 00:12 by MAYUR Quintanilla Smoking status: Current every day smoker Little interest or pleasure in doing things: not at all Feeling down, depressed, or hopeless: not at all Exam Narrative Exam Narrative: Nurses note and vital signs reviewed and patient is not hypoxic. General: The patient appears well and in no apparent distress. Patient is resting comfortably on cart. Skin: Warm, dry, no pallor noted. There is no rash noted. Head: Normocephalic, atraumatic Eye: Normal conjunctiva, no drainage Ears, Nose, Mouth, and Throat: oral mucosa is moist. Nares patent. Cardiovascular: Regular Rate and Rhythm Respiratory: Patient is in no distress, no accessory muscle use, lungs are clear to auscultation, no wheezing, rales or rhonchi Back: non-tender GI: Soft and nontender Musculoskeletal: The patient has no evidence of calf tenderness, no pitting edema, symmetrical pulses noted bilaterally Neurological: A&O, normal speech Psychiatric: Cooperative Constitutional Vital Signs, click to edit/add: Last Vital Signs Pulse 70 01/09/25 16:13 Resp 14 01/09/25 16:13 BP 114/84 01/09/25 16:13 Pulse Ox 100 01/09/25 16:13 O2 Del Method Room Air 01/09/25 16:13 Course Vital Signs Vital signs: Vital Signs Pulse Rate 70 01/09/25 16:13 Respiratory Rate 14 01/09/25 16:13 Blood Pressure 114/84 01/09/25 16:13 Pulse Oximetry 100 01/09/25 16:13 Oxygen Delivery Method Room Air 01/09/25 16:13 Pulse Rate 70 01/09/25 16:13 Respiratory Rate 14 01/09/25 16:13 Blood Pressure 114/84 01/09/25 16:13 Pulse Oximetry 100 01/09/25 16:13 Oxygen Delivery Method Room Air 01/09/25 16:13 Medical Decision Making MDM Narrative Medical decision making narrative: Constipation is identified. The patient was given an enema without improvement. The plan was to do soapsuds enema but the patient did not want to have it done and wanted to be discharged home. Treatment diagnosis and follow-up were discussed with the patient. Differential Diagnosis Differential Diagnosis: Constipation Imaging Data Abdominal x-ray: Radiologist's impression: ITS Impressions Abdomen X-Ray 01/09/25 16:19 IMPRESSION: There is a moderate to large amount stool within the colon. This is consistent with a history of constipation. No bowel obstruction or free air. Impression dictated by: Chon Martinez M.D. 01/09/2025 5:06 PM Dictation Location: [facility] Electronically authenticated by: [id number] Y Date: 01/09/2025 17:06 Discharge Plan Discharge Chief Complaint: Abdominal Pain Clinical Impression: Constipation Patient Disposition: Home, Self-Care Time of Disposition Decision: 18:22 Condition: Good Mode of Transportation: Private Vehicle Prescriptions / Home Meds: No Action clobazam 10 mg tablet 10 mg PO .qhs Nayzilam 5 mg/spray (0.1 mL) spray,non-aerosol 1 spray INTRANASAL PRN PRN (Reason: FOR SEIZURES) metoprolol succinate 25 mg tablet extended release 24 hr 25 mg PO DAILY lamotrigine 200 mg tablet 200 mg PO Q12H dexmethylphenidate 5 mg capsule,ER biphasic 50-50 10 mg PO DAILY Briviact 100 mg tablet 100 mg PO BID azelaic acid 15 % gel 1 applic TOPICAL DAILY ondansetron HCl 4 mg tablet 4 mg PO Q8H PRN (Reason: nausea and vomiting) promethazine 25 mg tablet 25 mg PO TID PRN (Reason: nausea and vomiting) 2 Days Qty: 6 0RF zonisamide 25 mg capsule 25 mg PO .QHS Print Language: Lebanese Instructions: Constipation (ED) Referrals: KAVIN FRENCH [Primary Care Provider, Family Practice] - 1 week
[2025-01-09 18:34] VITALS: PULSE 72; O2SAT 99
== END 2025-01-09 18:37 | disposition home or self-care (01) ==
PROVIDERS: Emergency Provider Emergency Medicine; PCP Family Medicine
DX: K59.00 Constipation, unspecified (principal); F17.200 Nicotine dependence, unspecified, uncomplicated
CPT/HCPCS: 74018; 99283

== ENCOUNTER 2025-03-09 13:41 | Emergency (ER) | payer OTHER, SELFPAY ==
[2025-03-09] VITALS (21 sets, daily range): BP systolic 107–133; BP diastolic 60–88; PULSE 77–133; TEMP 36.4; O2SAT 95–100; BMI 19.0
--- NOTE | 2025-03-09 13:53 | ECG_ITS ---
The [facility] Test Date: 2025-03-09 Pat Name: BHAVNA VILLAR Department: Room: - Gender: Female Public Opinion Survey Taker: : 2000 Requested By: [id number] Order Number: [id number] Reading MD: ELLIOTT PLATT Measurements Intervals [place] Rate: 78 P: 77 PA: 142 QRS: 85 QRSD: 88 T: 50 QT: 358 QTc: 391 Interpretive Statements 1100 Sinus rhythm 1102 Sinus arrhythmia 9110 normal ECG Compared to ECG 12/29/2024 16:01:14 Right-axis deviation no longer present Electronically Signed On 03-11-2025 16:44:41 EDT by ELLIOTT PLATT
--- NOTE | 2025-03-09 14:04 | CT_ITS ---
[address] [address] Patient Name: BHAVNA VILLAR MRN: [id number] date: 2000 Sex: F Assigned Patient Location: ER Current Patient Location: [facility] Accession/Order Number: [id number] Exam Date: 03/09/2025 15:00 Report Date: 03/09/2025 15:43 At the request of: BERE SEPULVEDA MD Procedure: CT cervical spine wo con Unenhanced head CT TECHNIQUE: Contiguous axial imaging of the head. The CT exam was performed using one or more the following dose reduction techniques: Automated exposure control, adjustment of the MA and/or Kv according to patient size, or use of the iterative reconstruction technique. COMPARISON: None HISTORY: Head injury 3 days ago. Vomiting. Headache. VENTRICLES: Within normal limits ATROPHY: None BRAIN PARENCHYMA: Adequate hodges-white matter differentiation identified. HEMORRHAGE: None HERNIATION: No mass effect or herniation INFARCTION: No recent vascular distribution infarction is seen. EXTRA-AXIAL FLUID COLLECTIONS None MIDBRAIN: Unremarkable TOM: Unremarkable MEDULLA: Unremarkable SINUSES: Unremarkable ORBITS: Grossly unremarkable MASTOIDS: Unremarkable BONY STRUCTURES Intact ADDITIONAL FINDINGS: CT/CT head/brain wo con IMPRESSION: No acute findings. CT Cervical Spine withoutcontrast TECHNIQUE: Axial imaging with 2-D and 3-D reconstruction. The CT exam was performed using one or more the following dose reduction techniques: Automated exposure control, adjustment of the MA and/or Kv according to patient size, or use of the iterative reconstruction technique. COMPARISON: 08/14/2024 HISTORY: POST SURGERY CHANGES: None BONY ALIGNMENT: Adequate BONY SPINAL CANAL: Patent central bony canal FRACTURE: None BONY LESIONS: None SOFT TISSUES: Unremarkable DEGENERATIVE CHANGES: None LUNG APICES: Unremarkable ADDITIONAL FINDINGS: IMPRESSION: No acute process Impression dictated by: Gerardo Lamar M.D. 03/09/2025 3:43 PM Dictation Location: [place] [address] Electronically authenticated by: [id number] Y Date: 03/09/2025 15:43
--- NOTE | 2025-03-09 14:04 | CT_ITS ---
[address] [address] Patient Name: BHAVNA VILLAR MRN: [id number] date: 2000 Sex: F Assigned Patient Location: ER Current Patient Location: ED.MAIN Accession/Order Number: [id number] Exam Date: 03/09/2025 15:00 Report Date: 03/09/2025 15:43 At the request of: BERE SEPULVEDA MD Procedure: CT cervical spine wo con Unenhanced head CT TECHNIQUE: Contiguous axial imaging of the head. The CT exam was performed using one or more the following dose reduction techniques: Automated exposure control, adjustment of the MA and/or Kv according to patient size, or use of the iterative reconstruction technique. COMPARISON: None HISTORY: Head injury 3 days ago. Vomiting. Headache. VENTRICLES: Within normal limits ATROPHY: None BRAIN PARENCHYMA: Adequate hodges-white matter differentiation identified. HEMORRHAGE: None HERNIATION: No mass effect or herniation INFARCTION: No recent vascular distribution infarction is seen. EXTRA-AXIAL FLUID COLLECTIONS None MIDBRAIN: Unremarkable TOM: Unremarkable MEDULLA: Unremarkable SINUSES: Unremarkable ORBITS: Grossly unremarkable MASTOIDS: Unremarkable BONY STRUCTURES Intact ADDITIONAL FINDINGS: CT/CT cervical spine wo con IMPRESSION: No acute findings. CT Cervical Spine withoutcontrast TECHNIQUE: Axial imaging with 2-D and 3-D reconstruction. The CT exam was performed using one or more the following dose reduction techniques: Automated exposure control, adjustment of the MA and/or Kv according to patient size, or use of the iterative reconstruction technique. COMPARISON: 08/14/2024 HISTORY: POST SURGERY CHANGES: None BONY ALIGNMENT: Adequate BONY SPINAL CANAL: Patent central bony canal FRACTURE: None BONY LESIONS: None SOFT TISSUES: Unremarkable DEGENERATIVE CHANGES: None LUNG APICES: Unremarkable ADDITIONAL FINDINGS: IMPRESSION: No acute process Impression dictated by: Gerardo Lamar M.D. 03/09/2025 3:43 PM Dictation Location: [place] [address] Electronically authenticated by: [id number] Y Date: 03/09/2025 15:43
[2025-03-09] MEDS: 0.9 % SODIUM CHLORIDE 1,000 ML 1000 ML IV (14:07)
--- OUTSIDE RECORDS SUMMARY | 2025-03-09 14:10 | XMS_ITS | CCD ---
Author Organization [facility] Care Team Providers Care Lather Apprentice Name Role Phone ALEXA SAHA Admitting Unavailable ALEXA SAHA Attending Unavailable HOUSE, KAVIN Primary Care Unavailable SELF, REFERRED Referring Unavailable HOUSE, SR KAVIN Boland Primary Care Unavailable JUANJOSE JIANG Attending Unavailabl e DION WHITE Attending Unavailable HOUSE, KAVIN Boland Referring Unavailable HOUSE, KAVIN Boland Primary Care Unavailable House, DO Reyes Primary Care Provider DO Bobby Rojas Emergency Provider Unavai DO Tommy Hernandez Emergency Provider DO Som Fiore Emergency Provider DO Roberto Whittaker Emergency Provider DO Tommy Bowen Emergency Provider [phone] DO Kavin French Primary Care Provider DO [place] Mc[place]ally Emergency Provider MD Pipe Jose Emergency Provider [phone] DO Som Fiore Emergency Provider [phone] Redstone Sr.Kavin Primary Care Provider DO Tommy Bowen Emergency Provider [phone] DO Kavin French Primary Care Provider DO [place] Mc[place] Emergency Provider MD Pipe Jose Emergency Provider DO Som Fiore Emergency Provider DO [place] Emergency Provider DO Kavin French Primary Care Provider [phone] Leslie DO Attila Anderson Emergency Provider House, DO Reyes Primary Care Provider [phone] Panfilo DO Roberto Espinosa Emergency Provider House, DO Reyes Primary Care Provider Nelson, DO Attila Anderson Emergency Provider Unavailab le Vegadanis DO Roberto Espinosa Emergency Provider Z[facility]YAD Bowen [facility] Emergency Provider HOUSE, DR REYES Primary Care Unavailable TAMIR, DEO Admitting Unavailable TAMIR, DEO Attending Unavailable TAMIR, DEO Consulting Unavailable GILLIAN, DR REYES Primary Care Unavailable RADHA, DR MARGARITA Frankel Consulting Unavailable RDAHA, DR MARGARITA Frankel Admitting Unavailable RADHA, DR [...] OSULLIVAN Consulting Unavailable DERROW, COSMO Consulting Unavailable RIVERSIDE, DR REYES Primary Care Unavailable MARKER ., DR CASTRO Consulting Unavailable MARKER ., DR CASTRO Admdevang Unavailable MARKER ., DR CASTRO Attending Unavailable DEBBIE BRITT Consulting Unavailable NAHUN SAMUELS Consulting Unavailable GILLIAN, DR REYES Primary Care Unavailable SOPHIE ., COLTEN Admitting Unavailable SOPHIE ., COLTEN Attending Unavailable RADHA, DR MARGARITA Frankel Consulting Unavailable SOPHIE ., COLTEN Consulting Unavailable LO TUTTLE Consulting Unavailable Redstone Sr., Kavin BUCKLEY Primary Care Provider RIVERSIDE KAVIN LYONS Primary Care Unavailable STEFANIE ORTEZ Attending Unavailable Redstone, DO Reyes Primary Care Provider [phone] DO Som Fiore Emergency Provider [phone] [facility] ZEYAD Rivera Emergency Provider Redstone, DO Reyes Primary Care Provider DO Som Fiore Emergency Provider [phone] ZEYAD Rivera Emergency Provider [phone] MD Pipe Jose Emergency Provider NON STAFF Primary Care [...] KAVIN P Primary Care Unavailable House Sr., DO, Kavin Boland Primary Care Provider HOUSE SR, KAVIN P Primary Care Unavailable GALE BASSETT Referring Unavailable Samson VEGA, Lavonne Goodrich Unavailable Redstone DOKavin Primary Care Provider ÁNGEL POPE Admitting Unavailable ÁNGEL POPE Attending Unavailable DAVID RASMUSSEN Referring Unavailable HOUSE, KAVIN P Primary Care Unavailable SHAWNEE CHIRINOS Referring Unavailable HOUSE, KAVIN P Primary Care Unavailable SANTIO-LINSEY JUÁREZ Referring Unavai lable RIVERSIDE, KAVIN P Primary Care Unavailable BLAISEOGO-LINSEY JUÁREZ Referring Unavai lable RIVERSIDE, KAVIN P Primary Care Unavailable BLAISEOGO-JUÁREZ, PAIGE [facility] Primary Care Unavailable ROSALINE HARRIS [...] Unavailable HOUSE, KAVIN P Primary Care Unavailable FUMODEBBIE Attending Unavailable HOUSE, KAVIN P Referring Unavailable HOUSE, KAVIN P Primary Care Unavailable HOUSE, KAVIN P Referring Unavailable HOUSE, KAVIN P Primary Care Unavailable House DO, Kavin Boland Primary Care Provider Redstone DO, Kavin Boland Primary Care Provider ENRIQUETA TSE I Attending Unavailable HOUSE, KAVIN P Referring Unavailable HOUSE, KAVIN P Primary Care Unavailable HOUSE, KAVIN P Referring Unavailable HOUSE, KAVIN P Primary Care Unavailable DARYA, NETTE Pitt Attending Unavailable JESUS, ENRIQUETA Osorio Referring Unavailable HOUSE, KAVIN P Primary Care Unavailable DARYA, NETTE Pitt Attending Unavailable HOUSE, KAVIN P Referring Unavailable HOUSE, KAVIN P Primary Care Unavailable MARLENA-MELVIN, JAJA Attending Unavailable JESUS, ENRIQUETA Osorio Referring Unavailable HOUSE, KAVIN P Primary Care Unavailable MARLENA-MELVIN, JAJA Attending Unavailable HOUSE, KAVIN P Referring Unavailable HOUSE, KAVIN P Primary Care Unavailable HOUSE, KAVIN P Referring Unavailable HOUSE, KAVIN P Primary Care Unavailable GABRIELMELVIN, JAJA Attending Unavailable HOUSE, KAVIN P Referring Unavailable HOUSE, KAVIN P Primary Care Unavailable KAREN NEELY Attending Unavailable HOUSE, KAVIN P Referring Unavailable HOUSE, KAVIN P Primary Care Unavailable FUMDEBBIE Dominique Referring Unavailable HOUSE, KAVIN P Primary Care Unavailable FUMODEBBIE Attending Unavailable HOUSE, KAVIN P Referring Unavailable HOUSE, KAVIN P Primary Care Unavailable House , Kavin Boland Primary Care Provider Tere Solis DO Attending Provider Kavin French DO Primary Care Provider LAVONNE THOMAS Referring Unavailab le HOUSE, KAVIN Boland Primary Care Unavailable House Kavin BUCKLEY Primary Care Provider Kavin French MD Primary Care Provider REA SALINAS Referring Unavailable ISAIAS, JOJO Referring Unavailable RITAREA Rojo Referring Unavailable ISAIAS, JOJO Referring Unavailable ISAIAS, JOJO Referring Unavailable ISAIAS, JOJO Referring Unavailable ISAIAS, JOJO Referring Unavailable ISAIAS, JOJO Referring Unavailable ISAIAS, JOJO Referring Unavailable ISAIAS, JOJO Attending Unavailable ISAIAS, JOJO Referring Unavailable ISAIAS, JOJO Attending Unavailable ISAIAS, JOJO Referring Unavailable ISAIAS, JOJO Referring Unavailable ISAIAS, JOJO Referring Unavailable ISAIAS, JOJO Referring Unavailable ISAIAS, JOJO Referring Unavailable ISAIAS, JOJO Admitting Unavailable ISAIAS, JOJO Attending Unavailable ISAIAS, JOJO Referring Unavailable DEBBIE MCKEON Referring Unavailable HOUSE, KAVIN P Primary Care Unavailable CORNELIUS EPSTEIN Referring Unavailable HOUSE, KAVIN P Primary Care Unavailable HOUSE, KAVIN P Primary Care Unavailable HOUSE, KAVIN P Primary Care Unavailable HANNA DAN Attending Unavailable HOUSE, KAVIN P Primary Care Unavailable LIU CAVAZOS Attending Unavailable Razia RING, Edenilson Unavailable House Kavin BUCKLEY Primary Care Provider Kings Robles MD Other Provider [phone] Adam Patel MD Attending Provider Kings Robles MD Attending Provider GillianKavin Primary Care Unavailable Ly, Tere Pitt Attending Unavailable Ly, Tere Pitt Admitting Unavailable Ly, Tere Pitt Admitting Unavailable House, Kavin Primary Care Unavailable Ly, Tere Pitt Attending Unavailable House, Kavin Primary Care Unavailable TrabKings funk Attending Unavailable Kings Robles Admitting Unavailable JOSEY WHITE Attending Unavailable HOUSE SR, KAVIN P Primary Care Unavailable EDENILSON SCHMITZ Attending Unavailable HOUSE SR, KAVIN P Primary Care Unavailable TAMMY PALACIOS Attending Unavailable LY, TERE Referring Unavailable HOUSE SR, KAVIN P Primary Care Unavailable GALE BASSETT Attending Unavailable HOUSE SR, KAVIN P Primary Care Unavailable GALE BASSETT Referring Unavailable HOUSE SR, KAVIN P Primary Care Unavailable GALE BASSETT Attending Unavailable HOUSE SR, KAVIN P Primary Care Unavailable GLORIA ZACARIAS Attending Unavailable GALE BASSETT Referring Unavailable HOUSE SR, KAVIN P Primary Care Unavailable NAHUN GONGORA Attending Unavailable GALE BASSETT Referring Unavailable HOUSE SR, KAVIN P Primary Care Unavailable GALE BASSETT Attending Unavailable HOUSE SR, KAVIN P Primary Care Unavailable HOUSE, DO KAVIN P Attending Unavailable HOUSE, KAVIN P Primary Care Unavailable HOUSE, DO KAVIN P Attending Unavailable HOUSE, KAVIN P Primary Care Unavailable TRABGOOD, KINGS Attending Unavailable HOUSE, KAVIN P Primary Care Unavailable TRABKINGS FUNK Attending Unavailable TRABKINGS FUNK Referring Unavailable KAVIN FRENCH Primary Care Unavailable Allergies Allergy Classification Reported Allergen(s) Allergy Type Date of Onset Reaction(s) Facility (20 sources) Codeine; Translations: [CODEINE] Drug Allergy 8 Hives [facility] Repository (20 sources) Codeine Drug Allergy 8 Hives, Itching, Rash, Unknown [facility] Work Phone: (3 sources) topiramate; Translations: [TOPIRAMATE] Drug Allergy 5 Seizure, Respiratory depression [facility] Work Phone: (3 sources) Topiramate Propensity to adverse reactions 5 Seizures [facility] (1 source) Codeine Drug Allergy 5 [facility] Repository Medications Current Medications Medication Drug Class(es) Dates Sig (Normalized) Sig (Original) [id number] actuat albuterol 0.09 mg/actuat metered dose inhaler (6 sources) beta2-Adrenergic Agonist Start: 08-16-2024 take 2 puff(s) by inhalation every four hours albuterol 90 mcg/actuation inhaler Inhale 2 puffs every 4 hours if needed. 08/16/2024 Active Start: 08-16-2024 take 2 puff(s) by in halation every four hours as needed for wheezing albuterol (PROVENTIL HFA;VENTOLIN HFA) 90 mcg/actuation inhaler Indications: Influenza A (H1N1) , Dehydration Inhale 2 puffs every 4 (four) hours as needed for wheezing. 18 g 08/16/2024 Active amoxicillin 875 mg / clavulanate 125 mg oral tablet (3 sources) Penicillin-class Antibacterial Start: 02-12-2025 amoxicillin-clavulanate (Augmentin) 875-125 MG tablet 02/12/2025 Active azelaic acid 0.15 mg/mg topical gel (20 sources) Start: 07-26-2024 azelaic acid (Finacea) 15 % gel Indications: Acne vulgaris Apply thin layer to the face, once daily, 30 day supply 50 g 11 07/26/2024 Active Start: 07-26-2024 azelaic acid ( FINACEA) 15 % cream 07/26/2024 Active BD LUER-MARYLOU SYRINGE (18 sources) Start: 07-03-2020 BD LUER-MARYLOU SYRINGE Indications: [...] by mouth in the morning. 0 Active Blood-Glucose Sensor (FREESTYLE GOYO 2 PLUS SENSOR) efrain (5 sources) Start: 02-07-2025 Blood-Glucose Sensor (FREESTYLE GOYO 2 PLUS SENSOR) efrain Use to monitor blood glucose. Change sensor every 15 days. 9 each 3 02/07/2025 Active Blood-Glucose Sensor (FREESTYLE GOYO 3 PLUS SENSOR) efrain (4 sources) Start: 01-04-2025 End: 02-07-2025 Blood-Glucose Sensor (FREESTYLE GOYO 3 PLUS SENSOR) efrain Indications: Hypoglycemia Use to check glucose. Change every 15 days. 6 each 3 01/04/2025 02/07/2025 Discontinued Start: 01-04-2025 Blood-Glucose Sensor (FREESTYLE GOYO 3 PLUS SENSOR) efrain Indications: Hypoglycemia Use to check glucose. Change every 15 days. 6 each 3 01/04/2025 Active brivaracetam 100 mg oral tablet (20 sources) Start: 04-02-2024 End: 02-06-2025 take 1 tablet by mouth in the morning brivaracetam (Briviact) 100 MG tablet tablet Indications: Intractable complex partial epilepsy (HCC) , Focal epilepsy with impairment of consciousness, intractable (HCC) , Epilepsy, 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HCC) Take 1 tablet (100 mg) by mouth in the morning and 1 tablet (100 mg) before bedtime. 60 tablet 2 01/07/2025 Active Start: 03-20-2024 take 1 tablet by ketan th twice daily at bedtime Briviact 100 MG tablet tablet Indications: Intractable complex partial epilepsy (CMS/HCC) , Focal epilepsy with impairment of consciousness, intractable (CMS/HCC) , Epilepsy, 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CMS/HCC) TAKE 1 TABLET BY MOUTH TWICE DAILY (IN THE MORNING and BEFORE bedtime) 60 tablet 2 03/20/2024 Active Start: 08-23-2023 End: 02-06-2025 take 1 tablet by mouth twice daily brivaracetam (Briviact) 100 mg tablet tablet Take 1 tablet (100 mg) by mouth twice a day. 08/23/2023 Active Start: 08-23-2023 take 1 tablet by [...] tablets (100 mg total) before bedtime. Active busPIRone hydrochloride 10 mg oral tablet (3 sources) Start: 02-15-2025 End: 02-15-2026 take 1 tablet by mouth in the morning busPIRone (Buspar) 10 MG tablet Indications: Anxiety Take 1 tablet (10 mg) by mouth in the morning and 1 tablet (10 mg) before bedtime. 180 tablet 3 02/15/2025 02/15/2026 Active cefuroxime 250 mg oral tablet (13 [...] take 1 tablet by mouth once daily cloBAZam (Onfi) 10 mg tablet Take 1 tablet (10 mg) by mouth once daily. 04/06/2023 Active Start: 04-06-2023 End: 08-10-2023 take 5 [...] (20 mg total) before bedtime. 0 Active Continuous Glucose Sensor (FreeStyle Goyo 2 Plus Sensor) misc (3 sources) Start: 02-07-2025 Continuous Glucose Sensor (FreeStyle Goyo 2 Plus Sensor) misc USE DIRECTED to check blood sugar change every 15 days 02/07/2025 Active cyclobenzaprine hydrochloride 5 mg oral tablet (6 sources) Muscle Relaxant Start: 08-09-2024 take 1 tablet by mouth three times daily as needed for muscle spasms cyclobenzaprine (Flexeril) 5 mg tablet Take 1 tablet (5 mg) by mouth 3 times a day as needed for muscle spasms. 08/09/2024 Active cyproheptadine hydrochloride 4 mg oral tablet (2 sources) Start: 04-14-2023 End: 08-10-2023 take 0.5 tablet by mouth at bedtime cyproheptadine (Periactin) 4 MG tablet Indications: Migraine without aura and without status migrainosus, not intractable (CMS/HCC) , Insomnia due to medical condition , Allergy, sequela Take 0.5 tablets (2 mg) by mouth at bedtime. 45 tablet 3 04/14/2023 08/10/2023 Discontinued 24 hr dexmethylphenidate hydrochloride 10 mg extended release oral capsule (20 sources) Central Nervous System Stimulant Start: 09-06-2024 End: 03-30-2025 take 1 capsule by mouth once daily dexmethylphenidate XR (Focalin XR) 10 mg 24 hr capsule Take 1 capsule (10 mg) by mouth once daily. 10/10/2024 Active Start: 05-21-2024 End: 08-02-2024 take [...] before bedtime. 14 capsule 0 11/24/2021 Active flecainide acetate 100 mg oral tablet (20 sources) Antiarrhythmic Start: 02-07-2024 End: 02-06-2025 take 1 tablet by mouth in the morning flecainide (Tambocor) 100 MG tablet Take 100 mg by mouth in the morning and 100 mg in the evening. 02/07/2024 Active Start: 02-07-2024 End: 02-06-2025 take 1 tablet by mouth once daily take 1 tablet by ketan twice daily flecainide (Tambocor) 100 mg tablet Take 1 tablet (100 mg) by mouth 2 times a day. Active fludrocortisone acetate 0.1 mg oral tablet (5 sources) Start: 01-23-2025 End: 01-23-2026 take 1 tablet by mouth once daily in the evening fludrocortisone (Florinef) 0.1 mg tablet Indications: Shortness of breath , Palpitations Take 1 tablet (0.1 mg) by mouth once daily. 90 tablet 3 02/11/2025 6:09 PM EDT 01/23/2025 01/23/2026 Active fludrocortisone (Florinef) 0.05 mg split tablet (5 sources) End: 02-15-2025 take 2 tablets by mouth once daily fludrocortisone (Florinef) 0.05 mg split tablet Take 0.1 mg by mouth Daily 02/15/2025 Discontinued take 2 tablets by mouth once lizett ly fludrocortisone (Florinef) 0.05 mg split tablet Take 0.1 mg by mouth Daily Active 1.5 ml fremanezumab-vfrm 150 mg/ml prefilled syringe (20 sources) Start: 05-22-2024 fremanezumab (Ajovy) prefilled syringe 225 mg ketorolac tromethamine 10 mg oral tablet (20 sources) Nonsteroidal Anti-inflammatory Drug, Cyclooxygenase Inhibitor Start: [...] take 1 tablet by mouth twice daily Start: 07-27-2022 End: 05-12-2023 take 4 tablets by mouth twice daily Lamotrigine (Lamictal) 25 mg Tablet Discontinued 100 MG PO Twice daily July 27, 2022 1:00am May 12, 2023 2:30pm Start: 07-27-2022 take 4 tablets by mo [facility] once daily in the morning [...] Take 100 mg by mouth twice daily. 24 hr metFORMIN hydrochloride 500 mg extended release oral tablet (20 sources) Biguanide Start: take 1 tablet by mouth every twenty-four [...] tablet (20 sources) beta-Adrenergic Eleonora Start: 11-16-2023 End: 01-11-2026 take 1 tablet by mouth once daily metoprolol succinate XL (Toprol-XL) 25 mg 24 hr tablet Take 1 tablet (25 mg) by mouth once daily. 11/16/2023 01/11/2026 Active Start: 11-16-2023 take 1 tablet by ketan th once daily metoprolol succinate XL (Toprol-XL) 25 [...] 6 each 2 07/24/2024 Active Start: 02-06-2023 nasal spray Na yzilam 5 mg/spray (0.1 mL) spray,non-aerosol Administer 0.1 mg/kg into affected nostril(s) if needed. 02/06/2023 Active Start: 02-06-2023 take 5 mg nasal rout e every twenty-four hours as needed midazolam (NAYZILAM) 5 mg/spray (0.1 mL) nasal spray Use 5 mg in the nose at bedtime as needed. 02/06/2023 Active Start: 02-06-2023 take 0.1 mg nasal route once n nadeem spray Nayzilam 5 mg/spray (0.1 mL) spray,non-aerosol Administer 0.1 mg/kg into affected nostril(s) 1 time. 02/06/2023 Active Start: 02-06-2023 midazolam (NAY ZILAM) 5 mg/spray (0.1 mL) spray,non-aerosol Administer 5 mg into each nostril as needed (seizure activity). 02/06/2023 Active Start: 02-06-2023 Midazolam (NAY ZILAM) [...] tablet (20 sources) alpha-Adrenergic Agonist Start: 03-11-2023 End: 02-15-2025 take 1 tablet by mouth three times daily midodrine (Proamatine) 5 mg tablet Take 1 tablet (5 mg) by mouth 3 times a day. 06/09/2023 Active 24 hr mirabegron 50 mg extended release oral tablet (12 sources) beta3-Adrenergic Agonist Start: 06-29-2024 End: 09-03-2024 take 1 tablet by mouth in the morning, then take 1 tablet by mouth every twenty-four hours mirabegron ER (Myrbetriq) 50 MG 24 hr tablet Take 50 mg by mouth in the morning. 06/29/2024 Active montelukast 10 mg oral tablet (20 [...] tablet 3 11/15/2023 Active ondansetron 4 mg disintegrating oral tablet (20 sources) Serotonin-3 Receptor Antagonist Start: 08-16-2024 take 1 tablet by mouth every eight hours as needed for nausea and vomiting ondansetron (ZOFRAN) 4 mg tablet Take 1 tablet (4 mg total) by mouth every 8 (eight) hours as needed for nausea or vomiting for up to 12 doses. 12 tablet 08/16/2024 Active Start: 12-07-2023 ondansetron OD T (Zofran-ODT) 4 MG disintegrating tablet 02/12/2025 Active Start: 12-01-2023 End: 12-01-2023 ondansetron (ZOFRAN) injecti on 4 mg Start: 09-27-2023 End: 05-21-2024 take 1 tablet by mouth once daily as needed for nausea ondansetron (ZOFRAN) 4 mg tablet Take 1 tablet (4 mg total) by mouth daily as needed for nausea or vomiting. 30 tablet 1 09/27/2023 Active Start: 10-13-2021 End: 01-03-2025 take 1 tablet by mouth every eight hours as needed for nausea ondansetron ODT (Zofran-ODT) 4 MG disintegrating tablet Take 4 mg by mouth every 8 (eight) hours if needed for nausea 12/07/2023 01/03/2025 Discontinued pantoprazole 40 mg delayed release oral tablet (14 sources) Proton Pump Inhibitor Start: 10-15-2024 take 1 tablet by mouth once daily pantoprazole (ProtoNix) 40 MG EC tablet Take 40 mg by mouth Daily 10/15/2024 Active promethazine hydrochloride 25 mg oral tablet (20 sources) Phenothiazine Start: 01-02-2025 take 1 tablet by mouth every six hours as needed promethazine (Phenergan) 25 mg tablet Take 1 tablet (25 mg) by mouth every 6 hours if needed for nausea or vomiting. 01/02/2025 Active Start: 01-02-2025 take 1 tablet by ketan three times daily as needed for nausea and vomiting promethazine (Phenergan) 25 MG tablet Instructions: TAKE 1 TABLET BY MOUTH THREE TIMES DAILY NEEDED FOR NAUSEA AND VOMITING FOR 2 DAYS 01/02/2025 Active Start: 10-16-2021 End: 09-19-2023 promethazine (PHENERGAN) 25 mg suppository INSERT 1 (ONE) SUPPOSITORY RECTALLY EVERY 6 HOURS NEEDED 0 10/16/2021 09/19/2023 Discontinued sertraline 50 mg oral tablet (20 sources) Serotonin Reuptake Inhibitor Start: 12-07-2023 sertraline (ZOLOFT) 50 mg tablet Take 50 mg by mouth. 12/07/2023 Active Start: 12-04-2019 End: 12-04-2019 Sertraline (Zoloft) 25 mg Ta blet Discontinued MG December 04, 2019 12:00am December [...] once daily, 30 day supply. 10/11/2023 Active traZODone hydrochloride 100 mg oral tablet (20 sources) Serotonin Reuptake Inhibitor Start: 02-16-2024 End: 03-17-2024 take 2 tablets by mouth at bedtime traZODone (Desyrel) 100 MG tablet Indications: Primary insomnia Take 2 tablets (200 mg) by mouth at bedtime 60 tablet 11 02/16/2024 Active Start: 01-05-2024 End: 02-19-2025 traZODone (DESYREL) 100 mg t ablet Take 100 mg by mouth. 01/28/2024 02/19/2025 Discontinued take 1 tablet by ketan th once daily traZODone (DESYREL) 50 mg tablet Take 1 tablet (50 mg total) by mouth nightly. Active tretinoin 0.5 mg/ml topical cream (20 sources) Retinoid Start: 07-26-2024 tretinoin (Ret in-A) 0.05 % cream Indications: Acne vulgaris Apply to face, once daily at evening/night time, 30 day supply 45 g 11 07/26/2024 Active Start: 05-24-2023 End: 08-10-2023 tretinoin (Retin-A) 0.025 % cream Indications: Acne vulgaris Apply a pea size amount topically to face, once daily at evening/night time, 30 day supply 20 g 2 05/24/2023 08/10/2023 Discontinued Viloxazine HCl ER (Qelbree) 200 MG capsule [...] Morning. 37 capsule 2 02/01/2024 03/09/2024 Active Zavegepant HCl (Zavzpret) 10 MG/ACT solution (3 sources) Start: 02-15-2025 End: 03-17-2025 take 1 spray(s) nasal route once Zavegepant HCl (Zavzpret) 10 MG/ACT solution Indications: Intractable chronic migraine without aura and without status migrainosus Administer 1 spray into affected nostril(s) 1 (one) time if needed (onset of migraine) 8 each 3 02/15/2025 03/17/2025 Active zonisamide 100 mg oral capsule (14 sources) Anti-epilep tic Agent Start: 02-06-2025 End: 05-07-2025 take 1 capsule by mouth at bedtime zonisamide (Zonegran) 100 MG capsule Indications: Psychogenic nonepileptic seizure Take 1 capsule (100 mg) by mouth at bedtime 30 capsule 2 02/06/2025 05/07/2025 Active Start: 01-03-2025 End: 04-10-2025 take 2 capsules by mouth once daily zonisamide (Zonegran) 25 mg capsule Take 2 capsules (50 mg) by mouth once daily. 01/03/2025 04/10/2025 Active Start: 01-03-2025 End: 04-10-2025 take 1 capsule by mouth at bedtime, then take 2 capsules by mouth at bedtime zonisamide (Zonegran) 25 MG capsule Indications: Migraine without aura and without status migrainosus, not intractable , Psychogenic nonepileptic seizure , Seizure disorder (HCC) Take 1 capsule (25 mg) by mouth at bedtime for 7 days, THEN 2 capsules (50 mg) at bedtime. 187 capsule 11 01/03/2025 02/06/2025 Discontinued (Reorder) Completed/Discontinued Medications Medication Drug Class(es) Dates Sig (Normalized) Sig (Original) atomoxetine 40 mg oral capsule (20 sources) Norepinephrine Reuptake Inhibitor Start: 01-28-2024 End: 02-19-2025 take 1 capsule by mouth once daily atomoxetine (STRATTERA) 40 mg capsule Take 40 mg by mouth once daily. 01/28/2024 02/19/2025 Discontinued take 1 capsule by mouth in the m orning atomoxetine (STRATTERA) 25 mg capsule Take 1 capsule (25 mg total) by mouth in the morning. Active benoxinate hydrochloride 4 mg/ml / fluorescein sodium 3 mg/ml ophthalmic solution (1 source) Diagnostic Dye Start: 10-08-2024 End: 10-08-2024 fluorescein-benoxinate 0.3-0.4 % 1 drop (FLURESS) Cenobamate (1 source) Start: 03-11-2023 End: 04-02-2024 take 1 tablet by mouth once daily at bedtime Cenobamate (Xcopri Titration Pack) 12.5 mg (14)- 25 mg (14) tablets,dose pack Discontinued 12.5 TAB PO Daily at bedtime March 11, 2023 12:00am April 02, 2024 10:43am Cenobamate (Xcopri Titration Pack) 12.5 mg (14)- [...] 07, 2021 1:00am September 09, 2021 12:35pm dexamethasone 2 mg oral tablet (18 sources) Corticosteroid Start: 06-12-2024 End: 01-03-2025 take 1 tablet by mouth in the morning dexAMETHasone (Decadron) 2 MG tablet Indications: Intractable chronic migraine without aura and without status migrainosus Take 1 tablet (2 mg) by mouth in the morning and 1 tablet (2 mg) in the evening. Take with meals. Do all this for 10 days. 20 tablet 06/13/2024 01/03/2025 Discontinued docusate sodium 50 mg / sennosides, [facility] 8.6 mg oral tablet (20 sources) Start: 12-07-2023 End: 02-19-2025 take 2 tablets by mouth once daily senna-docusate (SENOKOT-S) 8.6-50 mg per tablet Take 2 tablets by mouth once daily. 12/07/2023 02/19/2025 Discontinued doxepin hydrochloride 10 mg oral capsule (5 sources) Tricyclic Antidepressant Start: 12-06-2024 End: 12-06-2025 take 1 capsule by mouth at bedtime doxepin (SINEquan) 10 MG capsule Indications: Chronic insomnia Take 1 capsule (10 mg) by mouth at bedtime 30 capsule 11 12/06/2024 01/03/2025 Discontinued doxycycline monohydrate 50 mg oral capsule (15 sources) Tetracycline-class Drug Start: 05-03-2024 End: 07-26-2024 take 1 capsule by mouth once daily doxycycline (Monodox) 50 MG capsule Indications: Acne vulgaris Take 1 capsule, by mouth, once daily, 30 days 30 capsule 3 05/03/2024 07/26/2024 Discontinued (Side effects) 1 ml erenumab-aooe 140 mg/ml auto-injector (20 sources) Start: 11-17-2023 End: 02-19-2025 inject 140 mg by subcutaneous injection every month erenumab-aooe 140 mg/mL subcutaneous auto-injector (AIMOVIG) Inject 140 mg subcutaneously once every month. 01/28/2024 02/19/2025 Discontinued Start: 09-30-2023 End: 09-29-2024 erenumab-aooe (AIMOVIG AUTOI NJECTOR) 140 mg/mL auto-injector Inject 140 mg under the skin every 28 days. 09/30/2023 09/29/2024 Active etonogestrel 68 mg drug implant (2 sources) Progestin Start: 09-19-2023 End: 09-19-2023 etonogestreL (NEXPLANON) implant 68 mg Start: 09-19-2023 End: 09-19-2023 etonogestreL (NEXPLANON) imp lant 68 mg ibuprofen 600 mg oral tablet (20 sources) Nonsteroidal Anti-inflammatory Drug Start: 09-20-2023 End: 01-03-2025 take 1 tablet by mouth every six hours as needed ibuprofen 600 MG tablet Take 600 mg by mouth every 6 (six) hours if needed 09/20/2023 01/03/2025 Discontinued Start: 05-12-2023 take 1 tablet by mouth three t imes daily as needed for pain lacosamide 100 mg oral tablet (20 sources) [...] 2021 11:40am lidocaine 0.05 mg/mg medicated patch (8 sources) Antiarrhythmic, Amide Local Anesthetic Start: 05-12-2023 End: 04-02-2024 apply 1 dose topically once daily as needed for pain Lidocaine (Lidoderm) 5 % adhesive patch,medicated Discontinued 1 PATCH TOPICAL Daily as needed for pain May 12, 2023 1:00am April 02, 2024 10:43am leave on most painful area for up to 12 hrs LORazepam 1 mg oral tablet (16 sources) Benzodiazepine Start: 09-16-2020 End: 02-19-2025 take 1 tablet by mouth every twelve hours LORazepam (ATIVAN) 1 mg tablet Take 1 mg by mouth q 12 HR. 09/16/2020 02/19/2025 Discontinued Comment on above: Take 1 mg by mouth q 12 HR. mirtazapine 15 mg oral tablet (7 sources) Start: 09-06-2024 End: 01-03-2025 take 1 tablet by mouth at bedtime mirtazapine (Remeron) 15 MG tablet Indications: Chronic insomnia Take 1 tablet (15 mg) by mouth at bedtime 30 tablet 09/06/2024 01/03/2025 Discontinued nitrofurantoin, macrocrystals 25 mg / nitrofurantoin, monohydrate 75 mg oral capsule (8 sources) Nitrofuran Antibacterial Start: 08-30-2022 End: 09-13-2022 [...] 2.5 % 1 drop (AK-DILATE, CRESENCIO-SYNEPHRINE) phenytoin sodium 100 mg extended release oral capsule (19 sources) Anti-epileptic Agent Start: 11-03-2020 End: 02-19-2025 take 3 capsules by mouth once daily phenytoin ER (DILANTIN) 100 mg ER capsule Take 300 mg by mouth once daily. 11/03/2020 02/19/2025 Discontinued phenytoin (NITIN TIN) 100 mg ER capsule Comment on above: Take 300 mg by mouth once daily. phenytoin (DILANTIN) 1,000 mg in sodium chloride 0.9 % 100 mL IVPB (loading dose) (1 source) Start: End: phenytoin (DILANTIN) 1,000 mg in sodium chloride 0.9 % 100 mL IVPB (loading dose) proparacaine hydrochloride 5 mg/ml ophthalmic solution (1 source) Local Anesthetic Start: 5 End: 5 proparacaine 0.5 % 1 drop (ALCAINE) propranolol hydrochloride 10 mg oral tablet (19 sources) beta-Adrenergic Eleonora Start: 0 End: 4 take 1 tablet by mouth three times daily propranolol (INDERAL) 10 mg tablet Take 1 tablet by mouth three times daily. 90 tablet 2 02/21/2020 04/16/2024 Discontinued Start: 12-04-2019 End: 12-04-2019 Propranolol 10 mg Tablet Dis continued December 04, 2019 12:00am December 04, 2019 3:35pm Start: 12-04-2019 End: 12-04-2019 Propranolol 10 mg Tablet Dis continued TABLET December 04, 2019 12:00am December 04, 2019 3:35pm Comment on above: [facility] QELBREE 200 [...] tablet Discontinued 17.2 MG PO Twice daily April 02, 2024 12:00am October 08, 2024 9:16am Start: 04-02-2024 take 2 tablets by mo [facility] twice daily Sennosides (Senna Lax) 8.6 mg tablet Active 17.2 MG PO Twice daily 120 April 02, 2024 12:00am sennosides, [facility] 8.6 mg oral tablet (20 sources) Start: 04-02-2024 End: 03-06-2025 take 2 tablets by mouth twice daily senna 8.6 mg tablet Take 2 tablets (17.2 mg) by mouth twice a day. 04/02/2024 03/06/2025 Discontinued (Therapy completed) 50 ml sodium chloride 9 mg/ml injection (1 source) Start: 12-01-2023 End: 12-01-2023 sodium chloride 0.9 % bolus 1,000 mL sucralfate 1000 mg oral tablet (17 sources) Aluminum Complex Start: 06-02-2021 End: 06-29-2021 [...] MG (0.5 m l) SQ Q2wks tiZANidine 4 mg oral tablet (20 sources) Central alpha-2 Adrenergic Agonist Start: End: take 0.5 tablet by mouth at bedtime, then take 1 tablet by mouth at bedtime tiZANidine (Zanaflex) 4 MG tablet Indications: Insomnia due to medical condition , Intractable chronic migraine without aura and without status migrainosus Take 0.5 tablets (2 mg) by mouth at bedtime for 7 days, THEN 1 tablet (4 mg) at bedtime. 34 tablet 3 09/30/2023 01/03/2025 Discontinued Start: 09-20-2023 take 1 tablet by ketan th every eight hours as needed tiZANidine (ZANAFLEX) 2 mg tablet Take 2 mg by mouth three times a day as needed. 09/20/2023 Active Start: 09-20-2023 take 1 tablet by ketan th every eight hours as needed for muscle spasms tiZANidine (ZANAFLEX) 2 mg tablet Indications: Muscle spasm , Chronic bilateral low back pain, unspecified whether sciatica present Take 1 tablet (2 mg total) by mouth every 8 (eight) hours as needed for muscle spasms. 30 tablet 09/20/2023 Active topiramate 25 mg oral tablet (9 sources) Start: 12-06-2024 End: 12-06-2025 take 1 tablet by mouth in the morning topiramate (Topamax) 25 MG tablet Indications: Migraine without aura and without status migrainosus, not intractable Take 1 tablet (25 mg) by mouth in the morning and 1 tablet (25 mg) before bedtime. 60 tablet 3 12/06/2024 02/06/2025 Discontinued (Side effects) tropicamide 10 mg/ml ophthalmic solution (1 source) Anticholinergic Start: 10-08-2024 End: 10-08-2024 tropicamide 1 % 1 drop (MYDRIACYL) ubrogepant 100 mg oral tablet (20 sources) End: 02-19-2025 ubrogepant (UBRELVY) 100 mg tablet Take 1 tablet by mouth. 02/19/2025 Discontinued take 1 tablet by mouth once as n eeded UBRELVY 100 mg tablet Take 1 tablet by mouth once as needed. Active Problems Active Problems Problem Classification Problem Date Documented Da te Episodic/Chronic Abdominal pain (14 sources) Right lower quadrant pain; Translations: [Flank pain] Onset: 2 Episodic Anxiety disorders (20 sources) Social phobia; Translations: [Social phobia, unspecified] Onset: 8 12-05-2019 Chronic Cardiac dysrhythmias (20 sources) Postural orthostatic tachycardia syndrome ; Translations: [POTS (postural orthostatic tachycardia syndrome)] Onset: 3 02-16-2024 Chronic Cardiac dysrhythmias (20 sources) Intermittent palpitations; Translations: [Palpitations] Onset: 3 02-11-2023 Episodic Conditions associated with dizziness or vertigo (20 sources) Lightheadedness; Translations: [Dizziness and giddiness] Onset: 3 02-11-2023 Episodic Diabetes mellitus with complications (3 sources) Diabetes [...] intractable, without status epilepticus] Onset: 8 Chronic Esophageal disorders (1 source) Gastroesophageal reflux disease; Translations: [Gastro-esophageal reflux disease without esophagitis] 02-19-2025 Chronic Essential hypertension (2 sources) Essential (primary) hypertension; Translations: [Essential (primary) hypertension] Onset: 4 Chronic Fluid and electrolyte disorders (19 sources) Acute hypokalemia; Translations: [Hypokalemia] Onset: 2 [...] [affective] disorder] 03-31-2021 Chronic Nonspecific chest pain (20 sources) Atypical chest pain; Translations: [Other chest pain] Onset: 2 09-28-2021 Episodic Nutritional deficiencies (20 sources) Deficiency of macronutrients; Translations: [Mild protein-calorie malnutrition] Onset: 0 12-11-2019 Chronic Other aftercare (1 source) Other senior living (current) drug therapy; Translations: [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] Onset: 3 Episodic Other aftercare (1 source) prison (current) use of oral hypoglycemic drugs; Translations: [CARE HOME USE ORAL HYPOGLYCEMIC DX] Onset: 3 Episodic Other circulatory disease (6 sources) Presence of other cardiac implants and grafts; Translations: [Other specified cardiac device in situ] Onset: 5 01-23-2025 Chronic Other disorders of stomach and duodenum (7 sources) Gastroparesis syndrome; Translations: [Gastroparesis] 01-04-2025 Episodic Other disorders of stomach and duodenum (1 source) Persistent vomiting; Translations: [Cyclical vomiting syndrome unrelated to migraine] 01-04-2025 Episodic Other disorders of stomach and duodenum (1 source) Gastroparesis; Translations: [Gastroparesis] Onset: 5 Episodic Other endocrine disorders (2 sources) Hypoglycemia; Translations: [Hypoglycemia, unspecified] 06-18-2024 Chronic Other endocrine disorders (1 source) Hypoglycemia, unspecified; Translations: [Hypoglycemia] Onset: 5 Chronic Other eye disorders (1 source) Eye / vision finding 01-04-2025 Episodic Other female genital disorders (1 source) Abnormal uterine bleeding; Translations: [Abnormal uterine and vaginal bleeding, unspecified] 08-15-2024 Chronic Other female genital disorders (1 source) Abnormal uterine and vaginal bleeding, unspecified; Translations: [Abnormal uterine and vaginal bleeding, unspecified] Onset: 5 Chronic Other gastrointestinal disorders (20 sources) Chronic idiopathic constipation; Translations: [Chronic idiopathic constipation] Onset: 4 02-16-2024 Chronic Other gastrointestinal disorders (5 sources) Constipation; Translations: [Constipation, unspecified] 04-02-2024 Episodic Other gastrointestinal disorders (1 source) Constipation, unspecified; Translations: [Constipation, unspecified] 04-02-2024 Episodic Other gastrointestinal disorders (3 sources) Abnormal defecation; Translations: [Outlet dysfunction constipation] 02-19-2025 Episodic Other lower respiratory disease (6 sources) Dyspnea; Translations: [Shortness of breath] Onset: 5 01-23-2025 Episodic Other lower respiratory disease (1 source) Shortness of breath; Translations: [Shortness of breath] Onset: 5 Episodic Other nervous system disorders (1 source) Other chronic pain; Translations: [Other chronic pain] Onset: 4 Chronic Other nervous system disorders (2 sources) Tremor; Translations: [Tremor, unspecified] 02-06-2025 Episodic Other nutritional; endocrine; and metabolic disorders (5 sources) Loss of appetite; Translations: [Anorexia] 04-02-2024 Episodic Other nutritional; endocrine; and metabolic disorders (1 source) Anorexia; Translations: [Anorexia] 04-02-2024 Episodic Other nutritional; endocrine; and metabolic disorders (3 sources) Aversion to food or drink; Translations: [Sensory food aversion] 04-16-2024 Episodic Other nutritional; endocrine; and metabolic disorders (1 source) Underweight; Translations: [Underweight] 04-16-2024 Episodic Other nutritional; endocrine; and metabolic disorders (2 sources) Decreased body mass index; Translations: [Body mass index (BMI) 19.9 or less, adult] Onset: 5 01-23-2025 Episodic Other nutritional; endocrine; and metabolic disorders (2 sources) Body mass index less than 20; Translations: [Body mass index (BMI) 19.9 or less, adult] Onset: 5 03-06-2025 Episodic Other nutritional; endocrine; and metabolic disorders (2 sources) Body mass index (BMI) 19.9 or less, adult; Translations: [Body mass index (BMI) 19.9 or less, adult] Onset: 5 Episodic Other skin disorders (8 sources) Acne [...] NIPPLES] Onset: 3 Episodic Residual codes; unclassified (6 sources) Other specified health status; Translations: [[id number] transgender person] Onset: 5 12-31-2020 Episodic Residual codes; unclassified (1 source) Sleep disorder, unspecified; Translations: [Sleep disorder, unspecified] Onset: 5 Episodic Residual codes; unclassified (4 sources) FH: Cardiomyopathy; Translations: [Family history of ischemic heart disease and other diseases of the circulatory system] Onset: 5 01-23-2025 Episodic Residual codes; unclassified (4 sources) Never smoked tobacco; Translations: [Other specified health status] Onset: 5 01-23-2025 Episodic Residual codes; unclassified (2 sources) Family history of ischemic heart disease and other diseases of the circulatory system; Translations: [Family history of ischemic heart disease and other diseases of the circulatory system] Onset: 5 Episodic Unclassified (2 sources) C/O POSSIBLE SEIZURE Onset: 8 Unclassified (2 sources) Low back pain, unspecified; Translations: [Low back pain, unspecified] Onset: 4 Unclassified (1 source) Seizure-like activity Onset: 4 Unclassified (1 source) Menstrual Problem Onset: 5 Unclassified (1 source) Consult Onset: 4 Unclassified (1 source) Bladder Problem Onset: 5 Unclassified (2 sources) Implantable loop recorder present 01-23-2025 Unclassified (2 sources) Supraventricular tachycardia, unspecified; Translations: [Supraventricular tachycardia, unspecified] Onset: 5 Unclassified (1 source) Seizure - Prior Hx Of Onset: 5 Unclassified (1 source) cough and shortness of breath Onset: 5 Unclassified (1 source) Cyclical vomiting syndrome unrelated to migraine; Translations: [Emesis, persistent] Onset: 5 Urinary tract infections (20 sources) Urinary tract [...] kidney] Onset: 10-15-2021 Resolved: 08-16-2024 05-12-2023 Episodic Contraceptive and procreative management (3 sources) Patient encounter status; Translations: [Encounter for initial prescription of implantable subdermal contraceptive] Onset: 09-19-2023 09-19-2023 Episodic Epilepsy; convulsions (20 sources) Neurological finding; Translations: [Unspecified convulsions] Onset: 03-07-2019 12-07-2021 Episodic Genitourinary symptoms and ill-defined conditions (20 [...] and nonfatal submersion, initial encounter] Onset: 11-21-2022 4 Episodic Other lower respiratory disease (20 sources) Dyspnea on exertion; Translations: [Other forms of dyspnea] Onset: 02-01-2023 02-11-2023 Episodic Other lower respiratory disease (1 source) Cough Onset: 08-16-2024 Episodic Other nervous system disorders (20 sources) Paresthesia; Translations: [Paresthesia of skin] Onset: 03-02-2023 03-02-2023 Episodic Other nutritional; endocrine; and metabolic disorders (20 sources) Abnormal weight loss; Translations: [Abnormal weight loss] Onset: 12-05-2019 12-11-2019 Episodic Other nutritional; endocrine; and metabolic disorders (4 sources) Abnormal weight loss; Translations: [Loss of weight] Onset: 12-11-2019 04-02-2024 Episodic Other screening for suspected conditions (not [...] sources) Syncope; Translations: [Syncope and collapse] Onset: 08-25-2023 08-25-2023 Episodic Unclassified (1 source) Finding of sensation of bladder 09-03-2024 Unclassified (2 sources) Supraventricular tachycardia, unspecified; Translations: [Supraventricular tachycardia, unspecified] Onset: 11-28-2024 Unclassified (1 source) Onset: 03-06-2025 03-06-2025 Viral infection (20 sources) Disease caused by 2019-nCoV; Translations: [COVID-19] Onset: 04-24-2021 Resolved: 08-16-2024 02-11-2023 Episodic Results Test Name Value Interpretation Reference Range Facility Outside Recordson 02-27-2025 Outside Records [id number] IFF Normal [facility] CBC WITH AUTO DIFFERENTIALon 02-16-2025 BASOPHILS ABSOLUTE COUNT (10*3/UL) BY AUTOMATED COUNT 0.1 10*3/uL Normal 0.0-0.2 [facility] Comment on above: Performed By: #### C BCA #### [facility] ([address] [address] VIR BASOPHILS RELATIVE PERCENT BY AUTOMATED COUNT 0.6 % Normal [facility] Comment on above: Performed By: #### C BCA #### [facility] ([address] [address] VIR CELLAVISION DIFFERENTIAL TYPE AUTOMATED DIFFERENTIAL Normal [facility] Comment on above: Performed By: #### C BCA #### [facility] ([address] [address] VIR Eosinophils (Bld) [#/Vol] 0.0 10*3/uL Normal 0.0-0.4 [facility] Comment on above: Performed By: #### C BCA #### [facility] ([address] [address] VIR EOSINOPHILS RELATIVE PERCENT BY AUTOMATED COUNT 0.1 % Normal [facility] Comment on above: Performed By: #### C BCA #### [facility] ([address] [address] VIR Erythrocyte distribution width (RBC) [Ratio] 13.4 % Normal [facility] Comment on above: Performed By: #### C BCA #### [facility] ([address] [address] VIR Hematocrit (Bld) [Volume fraction] 41.6 % Normal 35-47 [facility] Comment on above: Performed By: #### C BCA #### [facility] ([address] [address] VIR Hemoglobin (Bld) [Mass/Vol] 14.3 g/dL Normal 12-15.5 [facility] Comment on above: Performed By: #### C BCA #### [facility] ([address] [address] VIR LYMPHOCYTES ABSOLUTE COUNT (10*3/UL) BY AUTOMATED COUNT 2.6 10*3/uL Normal 1.0-3.5 [facility] Comment on above: Performed By: #### C BCA #### [facility] ([address] [address] VIR LYMPHOCYTES RELATIVE PERCENT BY AUTOMATED COUNT 23.2 % Normal [facility] Comment on above: Performed By: #### C BCA #### [facility] ([address] [place] [address] VIR MCH (RBC) [Entitic mass] 30.6 pg Normal [facility] Comment on above: Performed By: #### C BCA #### [facility] ([address] [place] [address] VIR MCHC (RBC) [Mass/Vol] 34.3 g/dL Normal [facility] Comment on above: Performed By: #### C BCA #### [facility] ([address] [place] [address] VIR MCV (RBC) [Entitic vol] 89 fL Normal [facility] Comment on above: Performed By: #### C BCA #### [facility] ([address] [place] [address] VIR MONOCYTES ABSOLUTE COUNT (10*3/UL) BY AUTOMATED COUNT 0.7 10*3/uL Normal 0.0-0.9 [facility] Comment on above: Performed By: #### C BCA #### [facility] ([address] [place] [address] VIR MONOCYTES RELATIVE PERCENT BY AUTOMATED COUNT 5.8 % Normal [facility] Comment on above: Performed By: #### C BCA #### [facility] ([address] [place] [address] VIR NEUTROPHILS ABSOLUTE COUNT BY AUTOMATED COUNT 7.9 10*3/uL High 1.5-6.6 [facility] Comment on above: Performed By: #### C BCA #### [facility] ([address] [place] [address] VIR NEUTROPHILS RELATIVE PERCENT BY AUTOMATED COUNT 70.3 % Normal [facility] Comment on above: Performed By: #### C BCA #### [facility] ([address] [place] [address] VIR Platelet mean volume (Bld) [Entitic vol] 8.3 fL Normal [facility] Comment on above: Performed By: #### C BCA #### [facility] ([facility]) [address] [place] [address] VIR Platelets (Bld) [#/Vol] 228 10*3/uL Normal 150-450 [facility] Comment on above: Performed By: #### C BCA #### [facility] ([facility]) [address] [place] [address] [place] [address] VIR RBC COUNT 4.66 X10E12/L Normal 4.1-5.2 [facility] Comment on above: Performed By: #### C BCA #### [facility] ([facility]) [address] [place] [address] [place] [address] VIR WBC (Bld) [#/Vol] 11.3 10*3/uL High 4-11 [facility] Comment on above: Performed By: #### C BCA #### [facility] ([facility]) [address] [place], [place] [address]. [place] [address] VIR COMPREHENSIVE METABOLIC PANE Basim 02-16-2025 Albumin [Mass/Vol] 4.4 g/dL Normal 3.2-5.3 [facility] Comment on above: Performed By: #### 6 30-4 #### [facility] ([id number]) [address], [address] [place] [address] ALP [Catalytic activity/Vol] 64 U/L Normal 39-130 [facility] Comment on above: Performed By: #### 6 30-4 #### [facility] ([id number]) [address], [address] [place] [address] ALT [Catalytic activity/Vol] 12 U/L Normal <=31 [facility] Comment on above: Performed By: #### 6 30-4 #### [facility] ([id number]) [address], [address] [place] [address] Anion gap [Moles/Vol] 5 mmol/L Normal [facility] Comment on above: Performed By: #### 6 30-4 #### [facility] ([id number]) [address], [address] [place] [address] AST [Catalytic activity/Vol] 24 U/L Normal <=41 [facility] Comment on above: Performed By: #### 6 30-4 #### [facility] ([id number]) [address], [address] [place] [address] Bilirubin [Mass/Vol] 0.7 mg/dL Normal 0.3-1.2 [facility] Comment on above: Performed By: #### 6 30-4 #### [facility] ([id number]) [address], [address] [place] [address] Calcium [Mass/Vol] 8.9 mg/dL Normal 8.5-10.5 [facility] Comment on above: Performed By: #### 6 30-4 #### [facility] ([id number]) [address], [address] [place] [address] Chloride [Moles/Vol] 110 mmol/L High 98-109 [facility] Comment on above: Performed By: #### 6 30-4 #### [facility] ([id number]) [address], [address] [place] [address] CO2 [Moles/Vol] 24 mmol/L Normal 22-32 [facility] Comment on above: Performed By: #### 6 30-4 #### [facility] ([id number]) [address], [address] [place] [address] Creatinine [Mass/Vol] 0.74 mg/dL Normal 0.70-1.00 [facility] Comment on above: Result Comment: METH OD TRACEABLE TO IDMS STANDARD Performed By: #### 6 30-4 #### [facility] ([id number]) [address], [address] [place] [address] EGFR (CKD-EPI) NON-RACE DEPENDENT >^90 Normal >=60 [facility] Comment on above: Result Comment: eGFR not reported due to non-numeric value for Creatinine. Reported eGFR is based on the CKD-EPI 2020 equation that does not use a race coefficient. Performed By: #### 6 30-4 #### [facility] ([id number]) [address], [address] [place] [address] Glucose [Mass/Vol] 99 mg/dL Normal 65-99 [facility] Comment on above: Performed By: #### 6 30-4 #### [facility] ([id number]) [address], [address] [place] [address] Potassium [Moles/Vol] 3.5 mmol/L Normal 3.5-5.0 [facility] Comment on above: Performed By: #### 6 30-4 #### [facility] ([id number]) [address], [address] [place] [address] Protein [Mass/Vol] 7.3 g/dL Normal 6.0-8.0 [facility] Comment on above: Performed By: #### 6 30-4 #### [facility] ([id number]) [address], [address] [place] [address] Sodium [Moles/Vol] 139 mmol/L Normal 134-146 [facility] Comment on above: Performed By: #### 6 30-4 #### [facility] ([id number]) [address], [address] [place] [address] Urea nitrogen [Mass/Vol] 9 mg/dL Normal 5-23 [facility] Comment on above: Performed By: #### 6 30-4 #### [facility] ([id number]) [address] [place] [address], [address] [place] [address] D-DIMERon 02-16-2025 D DIMER <^150 Normal 1-255 [facility] Comment on above: Result Comment: Resu lts <255 ng/mL DDU: The presensence of a VTE can safely be excluded with a negative D-Dimer result and Wells score. A negative result doesn't exclude the possibility of DIC. The test should be repeated along with other diagnostic tests if the patient's symptoms persist or worsen. Performed By: #### 6 30-4 #### [facility] ([id number]) [address] [facility], [address] [place] [address] LACTATE W/ REFLEXon 02-17-20 25 LACTATE W/REFLEX 0.8 mmol/L Normal 0.4-2.0 [facility] Comment on above: Order Comment: Resul t did not trigger repeat Lactate,re-order if needed. Performed By: #### 6 30-4 #### [facility] ([id number]) [address] [place] [address], [address] [place] [address] MAGNESIUMon 02-16-2025 Magnesium [Mass/Vol] 2.0 mg/dL Normal 1.8-2.6 [facility] Comment on above: Performed By: #### 6 30-4 #### [facility] ([id number]) [address], [address] [place] [address] SARS/FLU A+B/RSV BY NAAT/MOL ECULAR (M4RT COLLECTION TUBE)on 02-16-2025 SARS/FLU A+B/RSV BY NAAT/MOLECULAR (M4RT COLLECTION TUBE) FLU A PCR Negative FLU B PCR Negative RSV BY PCR Negative SARS COV 2 BY PCR Not Detected Normal Not Detected [facility] Comment on above: Order Comment: The [employer] Xpress SARS-CoV-2/Flu/RSV Plus test is a rapid, multiplexed real-time RT-PCR test intended for the simultaneous qualitative detection and differentiation of SARS-CoV-2, influenza A, influenza B and respiratory syncytial virus (RSV) viral RNA from individuals suspected of respiratory viral infection consistent with COVID-19 by Their healthcare provider. This test has not been validated in asymptomatic patients. The Xpert Xpress SARS-CoV-2 test is intended for use by qualified and trained operators who are performing tests using either [employer] or [employer] systems and is limited to laboratories that meet the CLIA requirements to perform high and moderate complexity tests. The Xpert Xpress SARS-CoV-2/Flu/RSV Plus is only for use under the Food and Drug Administration's Emergency Use Authorization. Results are for the simultaneous detection and differentiation of SARS-CoV-2, influenza A, influenza B and RSV nucleic acids in clinical specimens. SARS-CoV-2, influenza A, influenza B and RSV RNA identified by this test are generally detectable in upper respiratory samples during the acute phase of infection. Positive results are Indicative of the presence of the identified virus, but do not rule out bacterial infection or co-infection with other pathogens not detected by this test. Clinical correlation with patient history and other diagnostic information is necessary to determine patient infection status. The agent detected may not be the definite cause of disease. Negative results do not preclude SARS-CoV-2, influenza A, influenza B and RSV infection and should not be used as the sole basis for treatment or other patient management decisions. Negative results must be combined with clinical observations, patient history and epidemiological information. An Invalid result may occur with specimen-associated inhibition unable to be resolved with specimen repeat.Fact Sheet for Healthcare Providers:https://www.fda.gov/media/267437/downloadFact Sheet for Patients:https://www.fda.gov/media/035409/download Performed By: #### 6 30-4 #### [facility] ([id number]) [address] [address], [address] [place] [address] TROP I, HIGH SENSITIVITY 1 H OURon 02-16-2025 TROPONIN I, HIGH SENSITIVITY 3 ng/L Normal <16 [facility] Comment on above: Performed By: #### 6 30-4 #### [facility] ([id number]) [address] [place] [address], [address] [place] [address] TROPONIN I, HIGH SENSITIVITY 0 HOURon 02-16-2025 TROPONIN I, HIGH SENSITIVITY 3 ng/L Normal <16 [facility] Comment on above: Performed By: #### 6 30-4 #### [facility] ([id number]) [address] [facility] [address] [address], [address] [place] [address] [facility] ----- BETHANIEKARIS ([id number]) 2 F Date Time Provider Department 02/12/25 GALE BASSETT [facility] During your visit today, we recorded the following information about you: Ekta Gomez, RN 02/12/2025 10:05 AM Signed Patient calling in to office. Verified by name and . Patient states that Goyo sensor was removed yesterday and noted redness and yellow pus draining from the insertion site on left arm. States redness about the size of a pea. Denies swelling. Rates pain in left arm 5/10. Admits to chills and nausea today, but denies fever or vomiting. Denies dizziness or lightheadedness. Denies red streaking. Advised urgent care now for patient. Patient agreeable. Advised having another adult drive, to which patient is agreeable. Patient will go now to local urgent care. Encouraged to call with update. Advised ER for worsening symptoms. Patient did not replace Goyo sensor at this time and is using finger stick method. Please advise further recommendations. Gale Bassett, OUTREACH COORDINATOR.BANKING MANAGEMENT CONSULTING MANAGER 02/14/2025 3:10 PM Signed CGM is not necessary - I do recommend checking glucose with ill symptoms Jessi Sanford MA 02/14/2025 3:21 PM Signed Spoke to pt per below. He advised he went to urgent care and was prescribed medication for the infection and will pick that up today. Nothing further needed at this time. Jessi Sanford MA Allergies As of Date: 02/12/2025 Noted Allergy Reaction CODEINE 07/17/2017 4 - Hives 9 - Itching Date Reviewed: 01/04/2025 Reviewed by: Karo Goode MA - Fully Assessed Reason for Visit: Infection Concern [Other] Prescriptions as of 02/14/2025 - Blood-Glucose Sensor (FREESTYLE GOYO 2 PLUS SENSOR) efrain Use to monitor blood glucose. Change sensor every 15 days. - erenumab-aooe 140 mg/mL subcutaneous auto-injector (AIMOVIG) [...] SQ Q2wks Problem List As Of Date 02/12/2025 Noted Resolved Social anxiety disorder [F40.10] 09/04/2018 [...] headaches [R51.9] 07/20/2017 Sleep difficulties [G47.9] 08/31/2018 Type 2 diabetes mellitus without retinopathy (H*10/08/2024 Vision changes [H53.9] 10/08/2024 Myopia, bilateral [H52.13] 10/08/2024 Encounter Status:Closed by JESSI SANFORD on 02/14/25 [facility] 02-05-2025 [facility] Telephone ([facility]) ----- KOVACSKARIS CARRION ([id number]) 2 F Date Time Provider Department 02/05/25 GALE BASSETT During your visit today, we recorded the following information about you: Fabienne Britt 02/05/2025 12:33 PM Signed [facility] [place] is calling Gale Bassett APRN.BANKING MANAGEMENT CONSULTING MANAGER today with concern regarding Medication Problem (Blood-Glucose Sensor (FREESTYLE GOYO 3 PLUS SENSOR) efrain). Patient has the Freestyle Goyo 2 Device. Can this script be changed to the Freestyle Goyo 2 Plus sensors so the patient will not need a new device? Please advise. Patient has been identified by name and birthdate. Duration of symptoms: N/A Person calling: pharmacy: [facility] at: [phone] Was an appointment scheduled: No Closing statement: Results or non-symptom based questions: Thank you for calling [facility], your call will be returned within the next business day. Fabienne Britt Allergies As of Date: 02/05/2025 Noted Allergy Reaction CODEINE 07/17/2017 4 - Hives 9 - Itching Date Reviewed: 01/04/2025 Reviewed by: Karo Goode MA - Fully Assessed Reason for Visit: Medication Problem [65] Cmt: Blood-Glucose Sensor (FREESTYLE GOYO 3 PLUS SENSOR) efrain Order(s):Blood-Glucose Sensor (FREESTYLE GOYO 2 PLUS SENSOR) deviUse to monitor blood glucose. Change sensor every 15 days.Disp: 9 eachRfl: 3 Prescriptions as of 02/07/2025 - Blood-Glucose Sensor (FREESTYLE GOYO 2 PLUS SENSOR) efrain Use to monitor blood glucose. Change sensor every 15 days. - erenumab-aooe 140 mg/mL subcutaneous auto-injector (AIMOVIG) [...] SQ Q2wks Problem List As Of Date 02/05/2025 Noted Resolved Social anxiety disorder [F40.10] 09/04/2018 [...] headaches [R51.9] 07/20/2017 Sleep difficulties [G47.9] 08/31/2018 Type 2 diabetes mellitus without retinopathy (H*10/08/2024 Vision changes [H53.9] 10/08/2024 Myopia, bilateral [H52.13] 10/08/2024 Prescriptions ordered this encounter Disp Refills Start End FREESTYLE GOYO 2 PLUS SENSOR DEVICE 9 ea* 3 02/07/2025 Sig: Use to monitor blood glucose. Change sensor every 15 days. Medications Discontinued During This Encounter Prescriptions - Blood-Glucose Sensor (FREESTYLE GOYO 3 PLUS SENSOR) efrain (Discontinued) Use to check glucose. Change every 15 days. Encounter Stat (more content not included)... Normal [facility] Orders Onlyon 01-29-2025 Orders Only [id number] Juan Jose Kovacs 2000 F Date Provider Department Center 01/29/2025 EMILY TREJO [facility] Family History Family Status - Relation Status Age at Mother Alive Father Alive Sister Alive Brother Alive Normal [facility] Consultation/Specialist Note on 01-24-2025 Consultation/Specialis t Note [id number]#1.00OTGTI FF Normal [facility] ECG 12 Leadon 01-23-2025 Normal sinus rhythm with right axis deviation [facility] Work Phone: Outside [employer] 01-14-2025 Outside Records [id number]#1.00OTGTI [facility] Rad - Other Radiology Report on 01-14-2025 Rad - Other Radiology Report [id number]#1.00OTGTI FF [facility] CNPNon 01-10-2025 CNPN Telephone (DDQ) ----- KARIS KOVACS ([id number]) 2 F Date Time Provider Department 01/10/25 [facility] PROVIDER DDQ During your visit today, we recorded the following information about you: Luz Cox 01/10/2025 2:29 PM Signed Gastric Emptying Study? Yes Diabetic: Yes When was your last EGD? 2024 Has the patient had Gastric Bypass? no Has the patient had a Gastric Sleeve? no Has the patient had a Shelley or Hiatal Hernia Repair? no Has the patient had POP/Pyloroplasty? no Is the patient currently on TPN? no Does the patient have a G/J Tube? no Do you have at least 3 bowel movements a week? no Referring Provider: Tere Solis Patient is aware of wait list Luz Cox 01/17/2025 4:03 PM Signed Diabetic with GP for review. Luz Cox 01/23/2025 1:44 PM Signed Patient is scheduled with GP Team Allergies As of Date: 01/10/2025 Noted Allergy Reaction CODEINE 07/17/2017 4 - Hives 9 - Itching Date Reviewed: 01/04/2025 Reviewed by: Karo Goode MA - Fully Assessed Prescriptions as of 01/23/2025 - Blood-Glucose Sensor (FREESTYLE GOYO 3 PLUS SENSOR) efrain Use to check glucose. Change every 15 days. - erenumab-aooe 140 mg/mL subcutaneous auto-injector (AIMOVIG) [...] SQ Q2wks Problem List As Of Date 01/10/2025 Noted Resolved Social anxiety disorder [F40.10] 09/04/2018 [...] headaches [R51.9] 07/20/2017 Sleep difficulties [G47.9] 08/31/2018 Type 2 diabetes mellitus without retinopathy (H*10/08/2024 Vision changes [H53.9] 10/08/2024 Myopia, bilateral [H52.13] 10/08/2024 Encounter Status:Closed by LUZ COX on 01/10/25 [facility] 01-07-2025 [facility] Telephone ([facility]) ----- KARIS KOVACS ([id number]) 2 F Date Time Provider Department 01/07/25 TRINA LEONE [facility] During your visit today, we recorded the following information about you: Trina Leone LSW 01/07/2025 1:45 PM Signed Endocrinology AND Metabolism Social Work Progress Note Provider Action / FYI N/A Karis Kovacs [id number] Type of Contact: telephone Endocrine BUNCHER OPERATOR Referral Reason: Appointment Scheduling Assistance/General Appointment Needs Contact Made?: No- personal care worker left a voicemail with her name, number, and requesting a return phone call. Note/Intervention: personal care worker calls Patient to offer assistance making follow up appointments as ordered. personal care worker leaves Patient a voicemail with callback number and sends a [employer] message. [facility] referral placed: No Signature: Trina PittEstrella LeonePEG, BUNCHER OPERATOR Patient Name: Karis Kovacs Date: 01/07/2025 Time: 1:36 PM Pager/Contact #: [phone] During this patient contact I spent approximately 10 minutes in reviewing the patient's chart and counseling regarding community resources and coordinating care. Gale Bassett R, OUTREACH COORDINATOR.BANKING MANAGEMENT CONSULTING MANAGER 01/10/2025 12:04 PM Signed Addended by: GALE BASSETT on: 01/10/2025 12:04 PM Modules accepted: Orders Allergies As of Date: 01/07/2025 Noted Allergy Reaction CODEINE 07/17/2017 4 - Hives 9 - Itching Date Reviewed: 01/04/2025 Reviewed by: Karo Goode MA - Fully Assessed Reason for Visit: Ambulatory Social Work [4191] Primary Visit Diagnosis:Emesis, persistent [R11.15] Other Visit Diagnoses:Severe protein-calorie malnutrition (HCC) [E43] Gastroparesis [K31.84] Order(s):XR MODIFIED BARIUM SWALLOW W SPEECH THERAPY [[id number]] Order #: [id number] FUTURE Prescriptions as of 01/10/2025 - Blood-Glucose Sensor (FREESTYLE GOYO 3 PLUS SENSOR) efrain Use to check glucose. Change every 15 days. - erenumab-aooe 140 mg/mL subcutaneous auto-injector (AIMOVIG) [...] SQ Q2wks Problem List As Of Date 01/07/2025 Noted Resolved Social anxiety disorder [F40.10] 09/04/2018 [...] headaches [R51.9] 07/20/2017 Sleep difficulties [G47.9] 08/31/2018 Type 2 diabetes mellitus without retinopathy (H*10/08/2024 Vision changes [H53.9] 10/08/2024 Myopia, bilateral [H52.13] 10/08/2024 Encounter (more content not included)... Normal [facility] CNOVon 01-04-2025 CNOV Office Visit (ENDOCC ) ----- KARIS KOVACS ([id number]) 2 F Date Time Provider Department 01/04/25 3:00 PM GALE BASSETT [facility] During your visit today, we recorded the following information about you: Pulse Blood pressure Weight Height 77/minute 101/66 41.7 kg 1.575 m Last Period 01/02/25 Gale Bassett, OUTREACH COORDINATOR.BANKING MANAGEMENT CONSULTING MANAGER 01/04/2025 6:16 PM Signed Endocrinology Follow Up Subjective History of Present [...] for most recent 14 days: CGM Type: [employer] G7 CGM recording adequate for interpretation: Yes [...] notable for no leukocytosis or anemia, electrolytes unremarkable, normal renal function, lactate within normal limits, troponin negative x2, ECG without STEMI or arrhythmia. ETOH negative. Patient given IV Keppra load with no further seizures. No evidence of status epilepticus. Reassuring neurological exam, and patient with a [...] is no improvement, a referral to another manager floral will be considered. IN OFFICE TODAY High Ketone Levels: - Recent lab results showed (more content not included)... Normal [facility] HEMOGLOBIN A1C (POC)on 01-04 HbA1c (Bld) [Mass fraction] 5.4 % 4.3 - 5.6 % [facility] Comment on above: Location:[facility], [address] [place] [address] , [place], [place], [address] Point of care (POC) Hemoglobin A1c (HGBA1C) [...] specific diabetes management situations: The POC device digital marketing manager provides a normal range of 4.2% to 6.5% for the HGBA1C POC test. However, the [place] [employer] guidelines indicate that patients with [...] anemia) that alter red blood cell lifespan. [facility] Outside [facility] 12-31-2024 Outside Records [id number]#1.00OTG TIFF [facility] Outside [facility] 12-19-2024 Outside Records [id number]#1.00OTG TIFF [facility] CBC WITH AUTO DIFFERENTIALon 12-15-2024 BASOPHILS ABSOLUTE COUNT (10*3/UL) BY AUTOMATED COUNT 0.0 10*3/uL Normal 0.0-0.2 [facility] Comment on above: Performed By: #### C BCA #### [facility] ([facility]) [address] [place] [address]. [place] [address] VIR BASOPHILS RELATIVE PERCENT BY AUTOMATED COUNT 0.5 % Normal [facility] Comment on above: Performed By: #### C BCA #### [facility] ([facility]) [address] [place] [address] VIR CELLAVISION DIFFERENTIAL TYPE AUTOMATED DIFFERENTIAL Normal [facility] Comment on above: Performed By: #### C BCA #### [facility] ([address] [place] [address] VIR Eosinophils (Bld) [#/Vol] 0.0 10*3/uL Normal 0.0-0.4 [facility] Comment on above: Performed By: #### C BCA #### [facility] ([address] [place] [address] VIR EOSINOPHILS RELATIVE PERCENT BY AUTOMATED COUNT 0.2 % Normal [facility] Comment on above: Performed By: #### C BCA #### [facility] ([address] [place] [address] VIR Erythrocyte distribution width (RBC) [Ratio] 13.1 % Normal [facility] Comment on above: Performed By: #### C BCA #### [address] [place] [address] VIR Hematocrit (Bld) [Volume fraction] 39.7 % Normal 35-47 [facility] Comment on above: Performed By: #### C BCA #### [facility] ([address] [place] [address] VIR Hemoglobin (Bld) [Mass/Vol] 13.7 g/dL Normal 12-15.5 [facility] Comment on above: Performed By: #### C BCA #### [facility] ([address] [place] [address] VIR LYMPHOCYTES ABSOLUTE COUNT (10*3/UL) BY AUTOMATED COUNT 2.4 10*3/uL Normal 1.0-3.5 [facility] Comment on above: Performed By: #### C BCA #### [facility] ([address] [place] [address] VIR LYMPHOCYTES RELATIVE PERCENT BY AUTOMATED COUNT 29.8 % Normal [facility] Comment on above: Performed By: #### C BCA #### [facility] ([address] [place] [address] VIR MCH (RBC) [Entitic mass] 30.9 pg Normal [facility] Comment on above: Performed By: #### C BCA #### [facility] ([facility]) [address] [place] [address]. [place] [address] VIR MCHC (RBC) [Mass/Vol] 34.5 g/dL Normal [facility] Comment on above: Performed By: #### C BCA #### [facility] ([facility]) [address] [place] [address]. [place] [address] VIR MCV (RBC) [Entitic vol] 90 fL Normal [facility] Comment on above: Performed By: #### C BCA #### [facility] ([address] [place] [address] VIR MONOCYTES ABSOLUTE COUNT (10*3/UL) BY AUTOMATED COUNT 0.5 10*3/uL Normal 0.0-0.9 [facility] Comment on above: Performed By: #### C BCA #### [facility] ([address] [place] [address] VIR MONOCYTES RELATIVE PERCENT BY AUTOMATED COUNT 5.7 % Normal [facility] Comment on above: Performed By: #### C BCA #### [facility] ([address] [place] [address] VIR NEUTROPHILS ABSOLUTE COUNT BY AUTOMATED COUNT 5.1 10*3/uL Normal 1.5-6.6 [facility] Comment on above: Performed By: #### C BCA #### [facility] ([address] [place] [address] VIR NEUTROPHILS RELATIVE PERCENT BY AUTOMATED COUNT 63.8 % Normal [facility] Comment on above: Performed By: #### C BCA #### [facility] ([address] [place] [address] VIR Platelet mean volume (Bld) [Entitic vol] 8.2 fL Normal [facility] Comment on above: Performed By: #### C BCA #### [facility] ([place] [address] [place] [address] VIR Platelets (Bld) [#/Vol] 233 10*3/uL Normal 150-450 [facility] Comment on above: Performed By: #### C BCA #### [facility] ([address] [address] VIR RBC COUNT 4.43 X10E12/L Normal 4.1-5.2 [facility] Comment on above: Performed By: #### C BCA #### [facility] ([address] [place] [address] VIR WBC (Bld) [#/Vol] 8.0 10*3/uL Normal 4-11 [facility] Comment on above: Performed By: #### C BCA #### [facility] ([address] [place] [address] VIR COMPREHENSIVE METABOLIC PANE Basim 12-15-2024 Albumin [Mass/Vol] 4.5 g/dL Normal 3.2-5.3 [facility] Comment on above: Performed By: #### C MP #### [facility] ([address] [place] [address] VIR ALP [Catalytic activity/Vol] 52 U/L Normal 39-130 [facility] Comment on above: Performed By: #### C MP #### [facility] ([address] [address] VIR ALT [Catalytic activity/Vol] 10 U/L Normal <=31 [facility] Comment on above: Performed By: #### C MP #### [facility] ([address] [address] VIR Anion gap [Moles/Vol] 6 mmol/L Normal [facility] Comment on above: Performed By: #### C MP #### [facility] ([address] [place] [address] VIR AST [Catalytic activity/Vol] 20 U/L Normal <=41 [facility] Comment on above: Performed By: #### C MP #### [facility] ([address] [place] [address] VIR Bilirubin [Mass/Vol] 0.6 mg/dL Normal 0.3-1.2 [facility] Comment on above: Performed By: #### C MP #### [facility] ([address] [place] [address] VIR Calcium [Mass/Vol] 9.2 mg/dL Normal 8.5-10.5 [facility] Comment on above: Performed By: #### C MP #### [facility] ([address] [place] [address] VIR Chloride [Moles/Vol] 114 mmol/L High 98-109 [facility] Comment on above: Performed By: #### C MP #### [facility] ([address] [place] [address] VIR CO2 [Moles/Vol] 21 mmol/L Low 22-32 [facility] Comment on above: Performed By: #### C MP #### [facility] ([address] [place] [address] VIR Creatinine [Mass/Vol] 0.68 mg/dL Low 0.70-1.00 [facility] Comment on above: Result Comment: METH OD TRACEABLE TO IDMS STANDARD Performed By: #### C MP #### [facility] ([address] [place] [address] VIR EGFR (CKD-EPI) NON-RACE DEPENDENT >^90 Normal >=60 [facility] Comment on above: Result Comment: eGFR not reported due to non-numeric value for Creatinine. Reported eGFR is based on the CKD-EPI 2020 equation that does not use a race coefficient. Performed By: #### C MP #### [facility] ([address] [place] [address] VIR Glucose [Mass/Vol] 98 mg/dL Normal 65-99 [facility] Comment on above: Performed By: #### C MP #### [facility] ([address] [address] VIR Potassium [Moles/Vol] 3.5 mmol/L Normal 3.5-5.0 [facility] Comment on above: Performed By: #### C MP #### [facility] ([address] [place] [address] VIR Protein [Mass/Vol] 7.2 g/dL Normal 6.0-8.0 [facility] Comment on above: Performed By: #### C MP #### [facility] ([address] [place] [address] VIR Sodium [Moles/Vol] 141 mmol/L Normal 134-146 [facility] Comment on above: Performed By: #### C MP #### [facility] ([address] [place] [address] VIR Urea nitrogen [Mass/Vol] 10 mg/dL Normal 5-23 [facility] Comment on above: Performed By: #### C MP #### [facility] ([address] [place] [address] VIR ETHANOLon 12-15-2024 Ethanol [Mass/Vol] mg/dL Normal <=0.080 [facility] Comment on above: Result Comment: This report is intended for use in clinical monitoring or management of patients. Performed By: #### A LCO #### [facility] ([address] [address] VIR LACTATE W/ REFLEXon 12-16-19 25 LACTATE W/REFLEX 1.5 mmol/L Normal 0.4-2.0 [facility] Comment on above: Order Comment: Resul t did not trigger repeat Lactate, re-order if needed. Performed By: #### L ACTS #### [facility] ([facility]) [address] [place] [address] [place] [address] VIR MAGNESIUMon 12-15-2024 Magnesium [Mass/Vol] 2.1 mg/dL Normal 1.8-2.6 [facility] Comment on above: Performed By: #### M G #### [facility] ([address] [place] [address] VIR TROP I, HIGH SENSITIVITY 1 H OURon 12-15-2024 TROPONIN I, HIGH SENSITIVITY <^2 Normal <16 [facility] Comment on above: Performed By: #### T NIHS1 #### [facility] ([address] [place] [address] VIR TROPONIN I, HIGH SENSITIVITY 0 HOURon 12-15-2024 TROPONIN I, HIGH SENSITIVITY <^2 Normal <16 [facility] Comment on above: Performed By: #### T NIHS0 #### [facility] ([address] [place] [address] VIR 36on 12-12-2024 36 Patient stopped in a [...] advise if you want anything else done Normal [facility] Orders Onlyon 11-29-2024 Orders Only [id number] Juan Jose Kovacs 2000 F Date Provider Department Center 11/29/2024 EMILY TREJO [facility] Family History Family Status - Relation Status Age at Mother Alive Father Alive Sister Alive Brother Alive Normal [facility] Documentationon 11-28-2024 Documentation [id number] Juan Jose Kovacs 2000 F Date Provider Department Center 11/28/2024 FREDO BEJARANO NEURO Medical Pavi Family History Family Status - Relation Status Age at Mother Alive Father Alive Sister Alive Brother Alive Normal [facility] HPon 11-28-2024 [facility] Electrophysiology Consult Note Reason for visit: [...] yesterday due to vomiting. LOOP reveals logn MD tachycardia in 170bpm. Many episodes noted. Review of Systems Cardiovascular: Positive for chest pain and irregular heartbeat. 06/05/24 Patient here for 4 mo follow up intermittent palpitations and positional lightheadedness. C/o chest pain and SOB. C/o night sweats and having to change his shirt several times during the night. C/o fatigue. 02/07/24 Patient was recently evaluated by Jacqueline Godfrey after admission for near syncope and questionable seizures. She was initially admitted to [facility] and then thereafter transferred to [facility]. Reportedly he had lxrk-bw-erhq seizures while he was undergoing his physical [...] to male transgender FMH- Maternal grandmother early ND- 30's, Maternal grandfather- early ND in 40's Allergies-none Home meds-Effexor and testosterone injections Per Dr. Esparza 09/23/20 HPI: 20-year-old patient with a history of seizure disorder was recently seen by Ms. Bruce for complaints of palpitations. He states that he has felt them quite often and was significantly bothered by it on August 10 that he went to [facility]. EKG that performed shows evidence of [...] history Family medical history-paternal grandfather of an ND at 46 years of age, paternal uncle [...] Use: Not At Risk (11/25/2023) Received from [facility], [facility] AUDIT-[facility] Frequency of Alcohol Consumption: Monthly or less Average Number of Drinks: 1 or 2 Frequency of Binge Drinking: Never Financial Resource Strain: Not on file Food Insecurity: No Food Insecurity (08/16/2024) Received from [facility] Hunger Screening Within the past 12 (more content not included)... [facility] NURSNOTEon 11-28-2024 NURSNOTE RN educated pt on d/ c instructions. This [...] off of unit with all of belongings. [facility] Orders Onlyon 11-22-2024 Orders Only [id number] Juan Jose Kovacs 2000 F Date Provider Department Center 11/22/2024 [id number], HISTORICAL [facility] Family History Family Status - Relation Status Age at Mother Alive Father Alive Sister Alive Brother Alive [facility] Orders Onlyon 11-21-2024 Orders Only [id number] Juan Jose Kovacs 2000 F Date Provider Department Center 11/21/2024 MAY HERNANDEZ [facility] VAS LAB [facility] Family History Family Status - Relation Status Age at Mother Alive Father Alive Sister Alive Brother Alive [facility] NM gastric emptying studyon 11-01-2024 NM gastric emptying study [place] [address] Nuclear Medicine Report Signed Patient: Karis Kovacs MR#: [id number] : 2000 Acct:[id number] Age/Sex: 24 / F ADM Date: 11/01/24 Loc: [place] Room: Type: [facility] Attending Dr: Tere Solis DO Copies to: DO Aman Winters Jr, DO Ordering Provider: Tere Solis DO Date of Service: 11/01/24 [place] gastric emptying study: R11.2 - Nausea with [...] of the radiotracer remained within the stomach. [place] gastric emptying study IMPRESSION: SCINTIGRAPHIC EVIDENCE OF GASTROPARESIS. Impression dictated by: Aman So Jr., D.OEstrella 11/01/2024 1:24 PM Dictation Location: [facility]- Transcribed By: [facility] 11/01/24 1324 Dictated By: Aman So Jr, DO 11/01/24 1322 Signed By: 11/01/[address] [facility] Office Visiton 10-16-2024 Follow-up visit [id number] Juan Jose Kovacs 2000 F Date Provider Department Center 10/16/2024 Tia-JOJO ESPARZA EMANI Bolaños Family History Family Status - Relation Status Age at Mother Alive Father Alive Sister Alive Brother Alive Level of Service:66906 MD OFFICE/OUTPATIENT ESTABLISHED HIGH MDM 40 MIN Normal [facility] Pathology study report docum entOrdered By: Kavin Sanford on 04-22-2025 Pathology study [facility] Other Amphetamine Screen Ql (U)Ord ered By: Tere Solis on 10-15-2024 Amphetamines Ql (U) Amphetamines screen Negativ e [facility] Barbiturates [Presence] in U rine by Screen methodOrdered By: Tere Solis on 10-15-2024 Barbiturates Screen Ql (U) Barbiturates [Presence] in Urine by Screen method Negative [facility] Benzodiazepines Screen Ql (U )Ordered By: Tere Solis on 10-15-2024 Benzodiazepines Ql (U) Benzodiazepines [Presence] in Urine by Screen method Negative [facility] Benzoylecgonine [Presence] i n Urine by Screen methodOrdered By: Tere Solis on 10-15-2024 Benzoylecgonine Screen Ql (U) Benzoylecgonine [Presence] in Urine by Screen method Negative [facility] Cannabinoids [Presence] in U rine by Screen methodOrdered By: Tere Solis on 10-15-2024 Cannabinoids Screen Ql (U) Cannabinoids [Presence] in Urine by Screen method High Negative [facility] Comment on above: These are unconfirme d results and should not be used for legal purposes. Drug Cut-Off Concentration: AMPH 1000 ng/mL DOMINIQUE 200 ng/mL BRICE 200 ng/mL COCM 300 ng/mL OP 300 ng/mL PCP 25 ng/mL THC 20 ng/mL Drug Screen,Urineon 10-16-19 Amphetamine Screen,Urine Negative Normal Negative [facility] Comment on above: Performed By: #### U [facility] #### [facility] [address] [place] [address] [place] Barbiturate Screen,Urine Negative Normal Negative [facility] Comment on above: Performed By: #### U HENOK [facility] #### [facility] [address] [place] [id number] [place] Benzodiazepines Screen,Urine Negative Normal Negative [facility] Comment on above: Performed By: #### U RDS, [facility] #### [facility] [address] [place] [id number] [place] Cannabinoid Screen,Urine Positive High Negative [facility] Comment on above: Result Comment: Thes e are unconfirmed results and should not be used for legal purposes. Drug Cut-Off Concentration: AMPH 1000 ng/mL DOMINIQUE 200 ng/mL BRICE 200 ng/mL COCM 300 ng/mL OP 300 ng/mL PCP 25 ng/mL THC 20 ng/mL PERFORMED BY: [place] [address] PATHOLOGIST [employer]OSS ISABELLA CALVO M.D. Performed By: #### U RDS, [facility] #### [address] Cocaine Screen,Urine Negative Normal Negative [facility] Comment on above: Performed By: #### U RDS, CG #### [address] Opiate Screen,Urine Negative Normal Negative The [facility] Comment on above: Performed By: #### U RDS, CG #### [address] Phencyclidine Screen,Urine Negative Normal Negative [facility] Comment on above: Performed By: #### U RDS, CG #### [address] HCG ( test) [place].rapi d Ql (U)Ordered By: Tere Solis on 10-15-2024 HCG ( test) Ql (U) Urine human chorionic gonadotropin (hCG) detection by immunoassay [facility] HCG,Urineon 10-15-2024 Beta HCG ( test) Ql (U) Negative Normal [facility] Comment on above: Result Comment: PERF ORMED BY: [place] [address] PATHOLOGIST [employer] ISABELLA CALVO M.D. Performed By: #### U RDS, CG #### [place] [address] [place] Basim 10-15-2024 L ----- Specimen: Received: 10/15/24 Status: LACY Yang Num: [id number] Spec Type: Surgical Subm Dr: Tere Solis DO Tissues: A Small Intestine - Biopsy/Polyp (SMALL BOWEL BX) B Gastric Biopsy (GASTRIC BX) Procedures: HE/4, Gross/Micro L4/2, H PYLORI Age/ Patient Sex Location Account Attending Physician Karis Kovacs 24/F [id number] Tere Solis DO SPEC NUM: [id number] RECD: 10/15/24 STATUS: LACY YANG NUM: [id number] GRICELDA: 10/15/[address]: Tere Solis DO ENTERED: 10/15/[address] [facility] [address]: SPEC TYPE: Surgical DEPT: S ENTERED BY: [id number] RECV BY: [id number] ORDERED: HE/4, Gross/Micro L4/2, H PYLORI ORDERED: [...] submitted in a single cassette. (1, ns, [id number] A) JG Part B is received in formalin labeled with the patients name, date of , and gastric BX is a tian-dominguez, focally erythematous, friable, 0.4 cm in greatest dimension tissue bit. The specimen is entirely submitted in a single cassette. (1, ns, [id number] B) JG Specimen: [id number] Received: 10/15/24 Status: LACY Willy Num: [id number] Spec Type: Surgical Subm Dr: Tere Solis DO Tissues: A Small Intestine - Biopsy/Polyp (SMALL BOWEL BX) B Gastric Biopsy (GASTRIC BX) Procedures: HE/4, Gross/Micro L4/2, H PYLORI Patient: Karis Kovacs [id number] (Continued) Specimen: [id number] Received: 10/15/24 (Continued) Signed (signature on file) Kavin Sanford Jr., MD 10/16/24 1618 Specimen: [id number] Received: 10/15/24 Status: LACY Yang Num: [id number] Spec Type: Surgical Subm Dr: Tere Solis, Tissues: A Small Intestine - Biopsy/Polyp (SMALL BOWEL BX) B Gastric Biopsy (GASTRIC BX) Procedures: HE/4, Gross/Micro L4/2, H PYLORI Patient: Karis Kovacs [id number] (Continued) Specimen: Received: 10/15/24 (Continued) Microscopic Description B. Immunoperoxidase stain performed on formalin fixed and paraffin-embedded tissue sections (block B1) for Helicobacter pylori organisms is negative.? The control stains appropriately. CPT Codes 15036 x 2, 85354 Specimen: Received: 10/15/24 Status: LACY Yang Num: [id number] Spec Type: Surgical Subm Dr: Tere Solis DO Tissues: A Small Intestine - Biopsy/Polyp (SMALL BOWEL BX) B Gastric Biopsy (GASTRIC BX) Procedures: HE/4, Gross/Micro L4/2, H PYLORI Patient: Karis Kovacs [id number] (Continued) Signed (signature on file) Kavin Sanford Jr., MD 10/16/[address] [facility] Opiates [Presence] in Urine by Screen methodOrdered By: Tere Solis on 10-15-2024 Opiates Screen Ql (U) Opiates [Presence] in Urine by Screen method Negative [facility] Phencyclidine Screen Ql (U)O rdered By: Tere Solis on 10-15-2024 Phencyclidine Ql (U) Phencyclidine [Pres ence] in Urine by Screen method Negative [facility] Measure post void residualon 09-03-2024 Volume 14ml [facility] POCT Urinalysis Auto, W/O Mi croscopyon 09-03-2024 External Poct Urine Blood Negative [facility] External Poct Urine Glucose Negative [facility] External Poct Urine Ketones Negative [facility] External Poct Urine Leukocyte Esterase Negative [facility] External Poct Urine Nitrite Negative [facility] External Poct Urine Ph 8 Pr [facility] External Poct Urine Protein Negative [facility] Outside Recordson 08-20-2024 Outside Records [id number]#1.00OTGT IFF [facility] Progress Note - Nurseon 02-1 3-2025 Progress Note - Nurse Gave 25mg of Prome thazine into patients Right Gluteus Karan intramuscularly. Patient tolerated well. No adverse reactions. Dr. French education patient on medication before given. [Electronically Signed on: 08/09/2024 15:23 EST] Ekta Olsen MA [Verified on: 08/09/2024 15:23 EST] Ekta Olsen MA Normal [facility] URINE CULTUREon 08-08-2024 Bacteria identified Cx Nom (U) CULTURE RESULTS <10,000 ORGANISMS/ML NORMAL URO GENITAL ZANDER Normal [facility] Comment on above: Performed By: #### 6 30-4 #### [facility] ([id number]) [address] [place] [address], [address] [place] [address] [facility] 08-01-2024 [facility] Telephone ([facility]) ----- KARIS KOVACS ([id number]) 2 F Date Time Provider Department 08/01/24 GALE BASSETT [facility] During your visit today, we recorded the following information about you: Karo Slater 08/01/2024 9:52 AM Signed Found on the Endo [facility] for Earline Bassett: Pt, IS REQUESTING PROVIDER TO PLACE [facility] FOR SPEECH THERAPY. No other information was given. Please advise. Gale Bassett APRN.[facility] 08/01/2024 11:36 AM Signed PCP is [...] Status:Closed by KARO SLATER on 08/01/24 Normal [facility] URINE CULTUREon 07-20-2024 Bacteria identified Cx Nom (U) CULTURE RESULTS <10,000 ORGANISMS/ML NORMAL URO GENITAL ZANDER Normal [facility] Comment on above: Performed By: #### 6 30-4 #### [facility] ([id number]) [address], [address] [place] [address] US RETROPERITONEAL COMPLETEo n 07-04-2024 US RETROPERITONEAL [...] Marcum MD on 07/04/2024 10:23 AM Normal [facility] POCT Urinalysis Auto, W/O Mi croscopyon 06-29-2024 External Poct Urine Blood Trace [facility] External Poct Urine Glucose Negative [facility] External Poct Urine Ketones Negative [facility] External Poct Urine Leukocyte Esterase Negative [facility] External Poct Urine Nitrite Negative [facility] External Poct Urine Ph 8.5 Pr [facility] External Poct Urine Protein Negative [facility] Outside Recordson 06-28-2024 Outside Records [id number]#1.00OTGTI [facility] Rad - Other Radiology Report on 06-28-2024 Rad - Other Radiology Report [id number]#1.00OTGTI [facility] Felix 06-18-2024 AMELIAN Telephone ([facility]) ----- KARIS KOVACS ([id number]) 2 F Date Time Provider Department 06/18/24 GALE BASSETT [facility] During your visit today, we recorded [...] Status:Closed by KARO SLATER on 06/18/24 Normal [facility] Office Visiton 06-05-2024 Follow-up visit [id number] Juan Jose Kovacs 2000 F Date Provider Department Center 06/05/2024 Tia-JOJO ESPARZA EMANI [facility] No family history on file Level of Service:60161 MD OFFICE/OUTPATIENT ESTABLISHED LOW MDM 20 MIN Normal [facility] CNPNon 05-18-2024 CNPN Telephone (ENDOCC) ----- KARIS KOVACS ([id number]) 2 F Date Time Provider Department 05/18/24 GALE BASSETT [facility] During your visit today, we recorded the following information about you: Jaqueline Coronado RN 05/18/2024 2:18 PM Signed Pt calls Seen 04-16-2024 Ov notes reviewed Asking if provider would like pt to stay on dexcom 7 He has applied the last disk to his arm Pharm on dial Ddm/ dandre [place] Jessi Sanofrd MA 05/18/2024 3:36 PM Signed Full Dexcom report printed and placed on providers desk for review. Gale Bassett, OUTREACH COORDINATOR.[facility] 05/18/2024 4:24 PM Signed Please discontinue metformin and come in for 2 more sensors - to see how you do off of the medication Jessi Sanford MA 05/18/2024 4:35 PM Signed Called and informed pt of below message. Placed sensors at Desk C for berry picker. Jessi Sanford MA Allergies As of [...] Status:Closed by JESSI SANFORD on 05/18/24 Normal [facility] 25(OH)D3 [facility] 2023 25-hydroxyvitamin D3 [Mass/Vol] 23.8 ng/mL Low 31.0-80.0 [facility] Comment on above: Order Comment: Speci men Type: BLOOD SPECIMENOrdering Facility: [facility] Address: [address] [place] [address] Result Comment: Clas sification of 25 [place] Vitamin D status: Deficiency/Insufficiency: < or = 30 ng/ml. Sufficiency/Optimal Levels: 31-80 ng/mL Toxicity: > 100 ng/mL. Test performed by chemiluminescent immunoassay. Performed By: #### 1 989-3 ####[facility] [id number] [place] [address] [place] ALBUMIN/CREATININE RATIO, UR INEon 05-11-2024 Albumin DL <= 20 mg/L (U) [Mass/Vol] mg/dL Normal [facility] Comment on above: Order Comment: Speci men Type: URINE SPECIMENOrdering Facility: [facility] Address: [address] [place] [address] Performed By: #### U ACR ####[facility] [id number] [place] [address] [place] Albumin/Creatinine (U) [Mass ratio] <13 Normal <30 [facility] Comment on above: Order Comment: Speci men Type: URINE SPECIMENOrdering Facility: [facility] Address: [address] [place] [address] Result Comment: Adul t Male and Female Nephrotic Criteria: <30 mg/g is considered normal to mildly increased 30-300 mg/g is considered moderately increased >300 mg/g is considered severely increased KDIGO. (2013). KDIGO 2012 Clinical Practice Guideline for the Evaluation and Management of Chronic Kidney Disease. Official Journal of the International Society of Nephrology, 3(1), 1-150. Performed By: #### U ACR ####[facility] [id number] [place] [address] [place] Creatinine (U) [Mass/Vol] 94.6 mg/dL Normal 20.0-300.0 [facility] Comment on above: Order Comment: Speci men Type: URINE SPECIMENOrdering Facility: [facility] Address: [address] [place] [address] Performed By: #### U ACR ####[facility] [id number] [place] [id number] [place] C peptide SerPl-mCncon 05-11 C peptide [Mass/Vol] 1.7 ng/mL Normal 1.1-4.4 [facility] Comment on above: Order Comment: Speci men Type: BLOOD SPECIMENOrdering Facility: [facility] Address: [address] [place] [address] Performed By: #### 1 986-9 ####[facility] [id number] [place] [address] [place] GAD65 Ab Ser-aCncon 05-11-20 Glutamate decarboxylase 65 Ab Qn (S) <5.0 Normal <=5.0 [facility] Comment on above: Order Comment: Speci men Type: BLOOD SPECIMENOrdering Facility: [facility] Address: [address] [place] [address] Result Comment: Anti -glutamic acid decarboxylase antibody [...] is required. Performed By: #### 1 3926-1 ####[facility] [id number] [place] [address] [place] Glucose p fast [facility] Healthon 05-11-2024 Glucose post fast [Mass/Vol] 78 mg/dL Normal 74-99 [facility] Comment on above: Order Comment: Janet white Type: BLOOD SPECIMENOrdering Facility: [facility] Address: [address] [place] [address] Result Comment: Amer ican Diabetes Association guidelines state that a diabetes mellitus diagnosis is preliminarily made when the fasting plasma glucose meets or exceeds 126 mg/dL. In the absence of unequivocal hyperglycemia, results should be confirmed with repeat testing. Patients are at increased risk for diabetes mellitus (prediabetes) when the fasting glucose is 100 to 125 mg/dL. Performed By: #### 1 558-6 ####[facility] [id number] [place] [address] [place] Glutamate decarboxylase 65 A b Qn (S)on 05-11-2024 GLUTAMIC ACID DECARBOXYLAS AB QUALITATIVE Negative Normal Negative [facility] Comment on above: Order Comment: Speci men Type: BLOOD SPECIMENOrdering Facility: [facility] Address: [address] [place] [address] Performed By: #### 1 3926-1 ####[facility] [id number] [place] [address] [place] Insulin SerPl-aCncon 024 Insulin Qn 3.3 u[IU]/mL Normal 3.0-25.0 [facility] Comment on above: Order Comment: Speci men Type: BLOOD SPECIMENOrdering Facility: [facility] Address: [address] [place] [address] Performed By: #### 2 0448-7 ####[facility] [id number] [place] [address] [place] PTH-Intact [facility] Healthon 04-27 Parathyrin.intact [Mass/Vol] 21 pg/mL Normal 15-65 [facility] Comment on above: Order Comment: Speci men Type: BLOOD SPECIMENOrdering Facility: [facility] Address: [address] [place] [address] Performed By: #### 2 132-9, 2731-8, 3016-3 ####[facility] [id number] [place] [address] [place] Renal function 2000 panelon 05-11-2024 Albumin [Mass/Vol] 4.6 g/dL Normal 3.9-4.9 [facility] Comment on above: Order Comment: Speci men Type: BLOOD SPECIMENOrdering Facility: [facility] Address: [address] [place] [address] Performed By: #### 2 4362-6 ####[facility] [id number] [place] [address] Anion gap [Moles/Vol] 10 mmol/L Normal 8-15 [facility] Comment on above: Order Comment: Speci men Type: BLOOD SPECIMENOrdering Facility: [facility] Address: [address] [place] [id number] Performed By: #### 2 4362-6 ####[facility] [id number] [place] [address] Calcium [Mass/Vol] 9.6 mg/dL Normal 8.5-10.2 [facility] Comment on above: Order Comment: Speci men Type: BLOOD SPECIMENOrdering Facility: [facility] Address: [address] [place] [address] Performed By: #### 2 4362-6 ####[facility] [id number] [place] [address] Chloride [Moles/Vol] 101 mmol/L Normal 98-107 [facility] Comment on above: Order Comment: Speci men Type: BLOOD SPECIMENOrdering Facility: [facility] Address: [address] [place] [address] Performed By: #### 2 4362-6 ####[facility] [id number] [place] [address] CO2 [Moles/Vol] 21 mmol/L Low 22-30 [facility] Comment on above: Order Comment: Speci men Type: BLOOD SPECIMENOrdering Facility: [facility] Address: [address] [place] [address] Performed By: #### 2 4362-6 ####[facility] [id number] [place] [address] Creatinine [Mass/Vol] 0.75 mg/dL Normal 0.73-1.22 [facility] Comment on above: Order Comment: Speci men Type: BLOOD SPECIMENOrdering Facility: [facility] Address: [address] [place] [address] Performed By: #### 2 4362-6 ####[facility] [id number] [place] [address] Creatinine and Glomerular filtration rate.predicted panel (S/P/Bld) 116 mL/min/1.73m??? Normal >=60 [facility] Comment on above: Order Comment: Janet white Type: BLOOD SPECIMENOrdering Facility: [facility] Address: [address] [place] [address] Result Comment: Carla mated Glomerular Filtration Rate [...] reflect actual GFR. Performed By: #### 2 4362-6 ####[facility] [id number] [place] [address] Glucose [Mass/Vol] 86 mg/dL Normal 74-99 [facility] Comment on above: Order Comment: Janet white Type: BLOOD SPECIMENOrdering Facility: [facility] Address: [address] [place] [address] Result Comment: The [place] Diabetes Association (ADA) provides guidance for cutoff [...] Standards of Medical Care in Diabetes 2016, [place] Diabetes Association. Diabetes Care. 2016.39(Suppl 1). Performed By: #### 2 4362-6 ####[facility] LABCLIA [id number] [place] [address] Phosphate [Mass/Vol] 4.2 mg/dL Normal [facility] Comment on above: Order Comment: Speci men Type: BLOOD SPECIMENOrdering Facility: [facility] Address: [address] [place] [address] Performed By: #### 2 4362-6 ####[facility] LABCLIA [id number] [place] [address] Potassium [Moles/Vol] 4.4 mmol/L Normal 3.7-5.1 [facility] Comment on above: Order Comment: Speci men Type: BLOOD SPECIMENOrdering Facility: [facility] Address: [address] [place] [address] Performed By: #### 2 4362-6 ####[facility] LABCLIA [id number] [place] [address] Sodium [Moles/Vol] 132 mmol/L Low 136-144 [facility] Comment on above: Order Comment: Speci men Type: BLOOD SPECIMENOrdering Facility: [facility] Address: [address] [place] [address] Performed By: #### 2 4362-6 ####[facility] LABCLIA [id number] [place] [address] Urea nitrogen [Mass/Vol] 12 mg/dL Normal 7-21 [facility] Comment on above: Order Comment: Speci men Type: BLOOD SPECIMENOrdering Facility: [facility] Address: [address] [place] [address] Performed By: #### 2 4362-6 ####[facility] LABCLIA [id number] [place] [address] TSH SerPl-aCncon 05-11-2024 TSH Qn 0.652 m[IU]/L Normal 0.270-4.20 0 [facility] Comment on above: Order Comment: Speci men Type: BLOOD SPECIMENOrdering Facility: [facility] Address: [address] [place] [address] Performed By: #### 2 132-9, 2731-8, 3016-3 ####[facility] LABCLIA [id number] [place] [id number] [place] Vit B12 [facility] 11-15-2 024 Cobalamin (Vitamin B12) [Mass/Vol] 314 pg/mL Normal 232-1245 [facility] Comment on above: Order Comment: Speci men Type: BLOOD SPECIMENOrdering Facility: [facility] Address: [address] [place] [address] Performed By: #### 2 132-9, 2731-8, 3016-3 ####[facility] [id number] [place] [address] [place] CNOVon 04-16-2024 CNOV Office Visit (ENDOCC ) ----- KARIS KOVACS ([id number]) 2 F Date Time Provider Department 04/16/24 3:00 PM [facility] During your visit today, we recorded the following information about you: Pulse Blood pressure Weight Height 83/minute 120/78 43.2 kg 1.575 m Gale Bassett, OUTREACH COORDINATOR.[facility] 04/16/2024 4:59 PM Signed Endocrinology Initial Diabetes Assessment Karis Kovacs is here for a consultation regarding: Diabetes My final recommendations will be communicated back to the requesting physician by way of shared Medical record or letter to requesting physician via [place] mail. PCP is Kavin French Sr, DO Kavin French Sr [address] [phone] Subjective History of Present Illness Karis Kovacs [...] as above Physical Activity: Physically active with [place] [employer] boarding Diet: Breakfast: cereal - Krave with [...] SQ Q2wks Medical Supplies [facility] D[facility] - [place] [facility] Syringes lamoTRIgine (LAMICTAL) 25 mg tablet Take 100 mg by mouth twice daily. Anticonvulsant - Phenyltriazine Derivatives LORazepam (ATIVAN) 1 mg tablet Take 1 mg by mouth q 12 HR. Antianxiety Agent - Benzodiazepines Needle, Disp, 18 G (BD DISPOSABLE NEEDLES) 18 gauge x 1 ndle For use to withdraw testosterone Q2wks [facility] Supp[facility] - [place] [employer] Syringes Needle, Disp, 23 G 23 gauge x 3/4 ndle For use with testosterone administration SQ Q2wks [facility] Supplies [facility] D[facility] - [place] [employer]ringes phenytoin ER (DILANTIN) 100 mg [...] History Toba (more content not included)... Normal [facility] HEMOGLOBIN A1C (POC)on 04-16 HbA1c (Bld) [Mass fraction] 5.3 % 4.3 - 5.6 % [facility] Comment on above: Location:[facility], [address] [place] [address], [address] Point of care (POC) Hemoglobin A1c (HGBA1C) [...] specific diabetes management situations: The POC device digital marketing manager provides a normal range of 4.2% to 6.5% for the HGBA1C POC test. However, the [place] Diabetes Association guidelines indicate that patients with [...] anemia) that alter red blood cell lifespan. [facility] 36on 02-17-2024 36 Patient called and w ants to know if he's able to drive. He said he was cleared to drive per neurology- but I think neurology is saying his issues are cardiac related. What do you want me to tell him? Normal [facility] Telephoneon 02-17-2024 Telephone [id number] Juan Jose Kovacs 2000 F Date Provider Department Center 02/17/2024 928-ROSALINE PRINCE [facility] No family history on file Normal [facility] Basic Metabolic Panelon - Anion gap [Moles/Vol] 11 mmol/L 9 - 17 mmol/L [facility] Calcium [Mass/Vol] 9.4 mg/dL 8.6 - 10. 4 mg/dL [facility] Chloride [Moles/Vol] 100 mmol/L 98 - 10 7 mmol/L [facility] CO2 [Moles/Vol] 28 mmol/L 20 - 31 mmol/L [facility] Creatinine [Mass/Vol] 0.7 mg/dL 0.5 - 0.9 mg/dL [facility] Est, [place] Rate - [facility] Comment on above: These results are [...] [Mass/Vol] 88 mg/dL 70 - 99 mg/dL [facility] Potassium [Moles/Vol] 3.8 mmol/L 3.7 - 5.3 mmol/L [facility] Sodium [Moles/Vol] 139 mmol/L 135 - 144 mmol/L [facility] Urea nitrogen [Mass/Vol] 10 mg/dL 6 - 20 mg/dL [facility] Urea nitrogen/Creatinine [Mass ratio] 14 mg/mg 9 - [facility] Basic Metabolic Profon 12-08 Anion gap [Moles/Vol] 11 mmol/L Normal -17 [facility] Comment on above: Performed By: #### C BC, BMP #### [facility] [address] [place] [address] Boat Pilot: Chidi Richter MD BUN/CRE Ratio 14 Normal - [facility] Comment on above: Performed By: #### C BC, BMP #### [facility] [address] [place] [address] Boat Pilot: Chidi Richter MD Calcium [Mass/Vol] 9.4 mg/dL Normal 8.6-10.4 [facility] Comment on above: Performed By: #### C BC, BMP #### [facility] [address] [place] [address] Boat Pilot: Chidi Richter MD Chloride [Moles/Vol] 100 mmol/L Normal 98-107 [facility] Comment on above: Performed By: #### C BC, BMP #### [facility] [address] [place] [address] Boat Pilot: Chidi Richter MD CO2 [Moles/Vol] 28 mmol/L Normal 20-31 [facility] Comment on above: Performed By: #### C BC, BMP #### [facility] [address] [place] [address] Boat Pilot: Chidi Richter MD Creatinine [Mass/Vol] 0.7 mg/dL Normal 0.5-0.9 [facility] Comment on above: Performed By: #### C NARCISO, BMP #### [facility] [address] [facility] [place] [address] Boat Pilot: Chidi Richter MD GFR/1.73 sq M.predicted among non-blacks MDRD (S/P/Bld) [Vol rate/Area] mL/min/{1.73_m2} Normal >60 [facility] Comment on above: Result [...] Performed By: #### C NARCISO, BMP #### [facility] [address] [facility] [place] [address] Boat Pilot: Chidi Richter MD Glucose [Mass/Vol] 88 mg/dL Normal 70-99 [facility] Comment on above: Performed By: #### C NARCISO, BMP #### [facility] [address] [facility] [place] [address] Boat Pilot: Chidi Richter MD Potassium [Moles/Vol] 3.8 mmol/L Normal 3.7-5.3 [facility] Comment on above: Performed By: #### C NARCISO, BMP #### [facility] [address] [facility] [place] [address] Boat Pilot: Chidi Richter MD Sodium [Moles/Vol] 139 mmol/L Normal 135-144 [facility] Comment on above: Performed By: #### C NARCISO, BMP #### [facility] [address] [facility], [place] [id number] Boat Pilot: Chidi Richter MD Urea nitrogen [Mass/Vol] 10 mg/dL Normal 6-20 [facility] Comment on above: Performed By: #### C NARCISO, BMP #### [facility] [address] [facility] [place], [place] [id number] Boat Pilot: Chidi Richter MD CBCon 12-09-2023 Erythrocyte distribution width (RBC) [Ratio] 13.3 % 11.8 - 14.4 % [facility] Hematocrit (Bld) [Volume fraction] 40.9 % 36.3 - 47.1 % [facility] Hemoglobin (Bld) [Mass/Vol] 13.7 g/dL 11.9 - 15.1 g/dL [facility] MCH (RBC) [Entitic mass] 28.5 pg 25.2 - 33.5 pg [facility] MCHC (RBC) [Mass/Vol] 33.5 g/dL 28.4 - 34.8 g/dL [facility] MCV (RBC) [Entitic vol] 85.0 fL 82.6 - 102.9 fL [facility] Nucleated RBC/100 WBC (Bld) [Ratio] 0.0 % 0.0 per 100 WBC [facility] Platelet mean volume (Bld) [Entitic vol] 9.9 fL 8.1 - 13.5 fL [facility] Platelets (Bld) [#/Vol] 253 10*3/uL [facility] RBC (Bld) [#/Vol] 4.81 10*6/uL 3.95 - 5.11 m/uL [facility] WBC other (Bld) [#/Vol] 6.6 [facility] Erythrocyte distribution width (RBC) [Ratio] 13.3 % Normal 11.8-14.4 [facility] Comment on above: Performed By: #### C NARCISO, BMP #### [facility] [address] [place], [place] [id number] Boat Pilot: Chidi Richter MD Hematocrit (Bld) [Volume fraction] 40.9 % Normal 36.3-47.1 [facility] Comment on above: Performed By: #### C NARCISO, BMP #### [facility] [facility] [place], [place] [id number] Boat Pilot: Chidi Richter MD Hemoglobin (Bld) [Mass/Vol] 13.7 g/dL Normal 11.9-15.1 [facility] Comment on above: Performed By: #### C NARCISO, BMP #### [facility] [address] [place] [address]. [place] [address] Boat Pilot: Chidi Richter MD MCH (RBC) [Entitic mass] 28.5 pg Normal 25.2-33.5 [facility] Comment on above: Performed By: #### C NARCISO, BMP #### [facility] [address] [place] [address]. [place] [address] Boat Pilot: Chidi Richter MD MCHC (RBC) [Mass/Vol] 33.5 g/dL Normal 28.4-34.8 [facility] Comment on above: Performed By: #### C NARCISO, BMP #### [facility] [address] [place] [address]. [place] [address] Boat Pilot: Chidi Richter MD MCV (RBC) [Entitic vol] 85.0 fL Normal 82.6-102.9 [facility] Comment on above: Performed By: #### C NARCISO, BMP #### [facility] [address] [place] [address]. [place] [address] Boat Pilot: Chidi Richter MD NRBC Automated 0.0 per 100 WBC Normal 0.0 [facility] Comment on above: Performed By: #### C NARCISO, BMP #### [facility] [address] [place], [place] [address], [place] [address] Boat Pilot: Chidi Richter MD Platelet mean volume (Bld) [Entitic vol] 9.9 fL Normal 8.1-13.5 [facility] Comment on above: Performed By: #### C BC, BMP #### [facility] [address] [place] [address] Boat Pilot: Chidi Richter MD Platelets (Bld) [#/Vol] 253 10*3/uL Normal 138-453 [facility] Comment on above: Performed By: #### C BC, BMP #### [facility] [address] [place] [address] Boat Pilot: Chidi Richter MD RBC (Bld) [#/Vol] 4.81 10*6/uL Normal 3.95-5.11 [facility] Comment on above: Performed By: #### C BC, BMP #### [facility] [address] [place] [address] Boat Pilot: Chidi Richter MD WBC (Bld) [#/Vol] 6.6 10*3/uL Normal 3.5-11.3 [facility] Comment on above: Performed By: #### C BC, BMP #### [facility] [place] [address] Boat Pilot: Chidi Richter MD Basic Metabolic Profon 12-05 Anion gap [Moles/Vol] 17 mmol/L Normal 9-17 [facility] Comment on above: Performed By: #### B MP, CBC #### [facility] [address] [place] [address] Boat Pilot: Chidi Richter MD BUN/CRE Ratio 20 Normal 9-20 [facility] Comment on above: Performed By: #### B MP, CBC #### [facility] [address] [place] [address] Boat Pilot: Chidi Richter MD Calcium [Mass/Vol] 9.8 mg/dL Normal 8.6-10.4 [facility] Comment on above: Performed By: #### B MP, CBC #### [facility] [address] [facility] [place] [address] Boat Pilot: Chidi Richter MD Chloride [Moles/Vol] 97 mmol/L Low 98-107 [facility] Comment on above: Performed By: #### B MP, CBC #### [facility] [address] [facility] [place] [address] Boat Pilot: Chidi Richter MD CO2 [Moles/Vol] 25 mmol/L Normal 20-31 [facility] Comment on above: Performed By: #### B MP, CBC #### [facility] [address] [facility] [place] [address] Boat Pilot: Chidi Richter MD Creatinine [Mass/Vol] 0.7 mg/dL Normal 0.5-0.9 [facility] Comment on above: Performed By: #### B MP, CBC #### [facility] [place] [address] Boat Pilot: Chidi Richter MD GFR/1.73 sq M.predicted among non-blacks MDRD (S/P/Bld) [Vol rate/Area] mL/min/{1.73_m2} Normal >60 [facility] Comment on above: Result [...] Performed By: #### B MP, CBC #### [facility] [address] [facility] [place] [address] Boat Pilot: Chidi Richter MD Glucose [Mass/Vol] 56 mg/dL Low 70-99 [facility] Comment on above: Performed By: #### B MP, CBC #### [facility] [address] [place] [address] Boat Pilot: Chidi Richter MD Potassium [Moles/Vol] 3.8 mmol/L Normal 3.7-5.3 [facility] Comment on above: Performed By: #### B MP, CBC #### [facility] [address] [place] [address] Boat Pilot: Chidi Richter MD Sodium [Moles/Vol] 139 mmol/L Normal 135-144 [facility] Comment on above: Performed By: #### B MP, CBC #### [facility] [address] [place] [address]. [place] [address] Boat Pilot: Chidi Richter MD Urea nitrogen [Mass/Vol] 14 mg/dL Normal 6-20 [facility] Comment on above: Performed By: #### B MP, CBC #### [facility] [address] [place] [address]. [place] [address] Boat Pilot: Chidi Richter MD CBCon 12-06-2023 Erythrocyte distribution width (RBC) [Ratio] 13.2 % Normal 11.8-14.4 [facility] Comment on above: Performed By: #### B MP, CBC #### [facility] [address] [place] [address]. [place] [address] Boat Pilot: Chidi Richter MD Hematocrit (Bld) [Volume fraction] 40.6 % Normal 36.3-47.1 [facility] Comment on above: Performed By: #### B MP, CBC #### [facility] [place] [address] Boat Pilot: Chidi Richter MD Hemoglobin (Bld) [Mass/Vol] 13.6 g/dL Normal 11.9-15.1 [facility] Comment on above: Performed By: #### B MP, CBC #### [facility] [address] [place] [address]. [place] [address] Boat Pilot: Chidi Richter MD MCH (RBC) [Entitic mass] 29.2 pg Normal 25.2-33.5 [facility] Comment on above: Performed By: #### B MP, CBC #### [facility] [address] [place] [address]. [place] [address] Boat Pilot: Chidi Richter MD MCHC (RBC) [Mass/Vol] 33.5 g/dL Normal 28.4-34.8 [facility] Comment on above: Performed By: #### B MP, CBC #### [facility] [address] [place] [address]. [place] [address] Boat Pilot: Chidi Richter MD MCV (RBC) [Entitic vol] 87.3 fL Normal 82.6-102.9 [facility] Comment on above: Performed By: #### B MP, CBC #### [facility] [address] [place] [address]. [place] [address] Boat Pilot: Chidi Richter MD NRBC Automated 0.0 per 100 WBC Normal 0.0 [facility] Comment on above: Performed By: #### B MP, CBC #### [facility] [address] [place] [address]. [place] [address] Boat Pilot: Chidi Richter MD Platelet mean volume (Bld) [Entitic vol] 10.3 fL Normal 8.1-13.5 [facility] Comment on above: Performed By: #### B MP, CBC #### [facility] [address] [place] [address] Boat Pilot: Chidi Richter MD Platelets (Bld) [#/Vol] 233 10*3/uL Normal 138-453 [facility] Comment on above: Performed By: #### B MP, CBC #### [facility] [facility] [place] [address] Boat Pilot: Chidi Richter MD RBC (Bld) [#/Vol] 4.65 10*6/uL Normal 3.95-5.11 [facility] Comment on above: Performed By: #### B MP, CBC #### [facility] [place] [address] Boat Pilot: Chidi Richter MD WBC (Bld) [#/Vol] 7.0 10*3/uL Normal 3.5-11.3 [facility] Comment on above: Performed By: #### B MP, CBC #### [facility] [address] [place] [address]. [place] [address] Boat Pilot: Chidi Richter MD Basic Metabolic Profon 12-01 Anion gap [Moles/Vol] 10 mmol/L Normal 9-17 [facility] Comment on above: Performed By: #### C BC, BMP #### [facility] [address] [place] [address]. [place] [address] Boat Pilot: Chidi Richter MD BUN/CRE Ratio 11 Normal 9-20 [facility] Comment on above: Performed By: #### C BC, BMP #### [facility] [address] [place], [place] [address], [place] [address] Boat Pilot: Chidi Richter MD Calcium [Mass/Vol] 9.2 mg/dL Normal 8.6-10.4 [facility] Comment on above: Performed By: #### C BC, BMP #### [facility] [address] [facility] [place] [address] Boat Pilot: Chidi Richter MD Chloride [Moles/Vol] 105 mmol/L Normal 98-107 [facility] Comment on above: Performed By: #### C NARCISO, BMP #### [facility] [address] [facility] [place] [address] Boat Pilot: Chidi Richter MD CO2 [Moles/Vol] 26 mmol/L Normal 20-31 [facility] Comment on above: Performed By: #### C NARCISO, BMP #### [facility] [address] [place] [address]. [place] [address] Boat Pilot: Chidi Richter MD Creatinine [Mass/Vol] 0.7 mg/dL Normal 0.5-0.9 [facility] Comment on above: Performed By: #### C NARCISO, BMP #### [facility] [address] [place] [address]. [place] [address] Boat Pilot: Chidi Richter MD GFR/1.73 sq M.predicted among non-blacks MDRD (S/P/Bld) [Vol rate/Area] mL/min/{1.73_m2} Normal >60 [facility] Comment on above: Result [...] Performed By: #### C BC, BMP #### [facility] [address] [place] [address] Boat Pilot: Chidi Richter MD Glucose [Mass/Vol] 93 mg/dL Normal 70-99 [facility] Comment on above: Performed By: #### C BC, BMP #### [facility] [address] [place] [address] Boat Pilot: Chidi Richter MD Potassium [Moles/Vol] 3.9 mmol/L Normal 3.7-5.3 [facility] Comment on above: Performed By: #### C BC, BMP #### [facility] [address] [place] [address] Boat Pilot: Chidi Richter MD Sodium [Moles/Vol] 141 mmol/L Normal 135-144 [facility] Comment on above: Performed By: #### C BC, BMP #### [facility] [address] [place] [address] Boat Pilot: Chidi Richter MD Urea nitrogen [Mass/Vol] 8 mg/dL Normal 6-20 [facility] Comment on above: Performed By: #### C BC, BMP #### [facility] [facility] [place] [address] Boat Pilot: Chidi Richter MD CBCon 12-02-2023 Erythrocyte distribution width (RBC) [Ratio] 13.0 % Normal 11.8-14.4 [facility] Comment on above: Performed By: #### C BC, BMP #### [facility] [address] [place] [address] Boat Pilot: Chidi Richter MD Hematocrit (Bld) [Volume fraction] 39.2 % Normal 36.3-47.1 [facility] Comment on above: Performed By: #### C NARCISO, BMP #### [facility] [address] [facility] [place] [address] Boat Pilot: Chidi Richter MD Hemoglobin (Bld) [Mass/Vol] 12.7 g/dL Normal 11.9-15.1 [facility] Comment on above: Performed By: #### C NARCISO, BMP #### [facility] [place] [address] Boat Pilot: Chidi Richter MD MCH (RBC) [Entitic mass] 28.7 pg Normal 25.2-33.5 [facility] Comment on above: Performed By: #### C NARCISO, BMP #### [facility] [address] [place] [address]. [place] [address] Boat Pilot: Chidi Richter MD MCHC (RBC) [Mass/Vol] 32.4 g/dL Normal 28.4-34.8 [facility] Comment on above: Performed By: #### C NARCISO, BMP #### [facility] [address] [place] [address]. [place] [address] Boat Pilot: Chidi Richter MD MCV (RBC) [Entitic vol] 88.5 fL Normal 82.6-102.9 [facility] Comment on above: Performed By: #### C NARCISO, BMP #### [facility] [place] [address] Boat Pilot: Chidi Richter MD NRBC Automated 0.0 per 100 WBC Normal 0.0 [facility] Comment on above: Performed By: #### C NARCISO, BMP #### [facility] [address] [place] [address]. [place] [address] Boat Pilot: Chidi Richter MD Platelet mean volume (Bld) [Entitic vol] 10.0 fL Normal 8.1-13.5 [facility] Comment on above: Performed By: #### C NARCISO, BMP #### [facility] [address] [facility] [place] [address] Boat Pilot: Chidi Richter MD Platelets (Bld) [#/Vol] 221 10*3/uL Normal 138-453 [facility] Comment on above: Performed By: #### C NARCISO, BMP #### [facility] [address] [facility] [place] [address] Boat Pilot: Chidi Richter MD RBC (Bld) [#/Vol] 4.43 10*6/uL Normal 3.95-5.11 [facility] Comment on above: Performed By: #### C NARCISO, BMP #### [facility] [address] [place] [address]. [place] [address] Boat Pilot: Chidi Richter MD WBC (Bld) [#/Vol] 7.4 10*3/uL Normal 3.5-11.3 [facility] Comment on above: Performed By: #### C NARCISO, BMP #### [facility] [place] [address] Boat Pilot: Chidi Richter MD [facility] Anion gap [Moles/Vol] 8 mmol/L Low 9 - 17 mmol/L [facility] Calcium [Mass/Vol] 8.8 mg/dL 8.6 - 10. 4 mg/dL [facility] Chloride [Moles/Vol] 106 mmol/L 98 - 10 7 mmol/L [facility] CO2 [Moles/Vol] 26 mmol/L 20 - 31 mmol/L [facility] Creatinine [Mass/Vol] 0.8 mg/dL 0.5 - 0.9 mg/dL [facility] Est, Glom Filt Rate - [facility] Comment on above: These results [...] [Mass/Vol] 92 mg/dL 70 - 99 mg/dL [facility] Interpretation and review of laboratory results Abnormal [facility] Potassium [Moles/Vol] 4.1 mmol/L 3.7 - 5.3 mmol/L [facility] Sodium [Moles/Vol] 140 mmol/L 135 - 144 mmol/L [facility] Urea nitrogen [Mass/Vol] 11 mg/dL 6 - 20 mg/dL [facility] Urea nitrogen/Creatinine [Mass ratio] 14 mg/mg 9 - 20 [facility] Basic Metabolic Profon 11-30 Anion gap [Moles/Vol] 8 mmol/L Low 9-17 [facility] Comment on above: Performed By: #### C BC, CP #### [facility] [address] [facility] [place] [address] Boat [employer]: Chidi Richter MD BUN/CRE Ratio 14 Normal 9-20 [facility] Comment on above: Performed By: #### C NARCISO, CP #### [facility] [address] [facility] [place] [address] Boat Pilot: Chidi Richter MD Calcium [Mass/Vol] 8.8 mg/dL Normal 8.6-10.4 [facility] Comment on above: Performed By: #### C NARCISO, CP #### [facility] [facility] [place] [address] Boat Pilot: Chidi Richter MD Chloride [Moles/Vol] 106 mmol/L Normal 98-107 [facility] Comment on above: Performed By: #### C NARCISO, CP #### [facility] [address] [place] [address] Boat Pilot: Chidi Richter MD CO2 [Moles/Vol] 26 mmol/L Normal 20-31 [facility] Comment on above: Performed By: #### C NARCISO, CP #### [facility] [address] [place] [address] Boat Pilot: Chidi Richter MD Creatinine [Mass/Vol] 0.8 mg/dL Normal 0.5-0.9 [facility] Comment on above: Performed By: #### C NARCISO, CP #### [facility] [address] [facility] [place] [address] Boat [employer]: Chidi Richter MD GFR/1.73 sq M.predicted among non-blacks MDRD (S/P/Bld) [Vol rate/Area] mL/min/{1.73_m2} Normal >60 [facility] Comment on above: Result [...] Performed By: #### C NARCISO, CP #### [facility] [address] [place] [address] [employer]: Chidi Richter MD Glucose [Mass/Vol] 92 mg/dL Normal 70-99 [facility] Comment on above: Performed By: #### C NARCISO, CP #### [facility] [address] [place] [address] [employer] Pilot: Chidi Richter MD Potassium [Moles/Vol] 4.1 mmol/L Normal 3.7-5.3 [facility] Comment on above: Performed By: #### C BC, CP #### [facility] [address] [place] [address] [employer]: Chidi Richter MD Sodium [Moles/Vol] 140 mmol/L Normal 135-144 [facility] Comment on above: Performed By: #### C BC, CP #### [facility] [address] [place] [address] [employer]: Chidi Richter MD Urea nitrogen [Mass/Vol] 11 mg/dL Normal 6-20 [facility] Comment on above: Performed By: #### C NARCISO, CP #### [facility] [address] [place], [place] [address] [address] [employer]: Chidi Richter MD CBCon 12-01-2023 Erythrocyte distribution width (RBC) [Ratio] 13.1 % Normal 11.8-14.4 [facility] Comment on above: Performed By: #### C NARCISO, CP #### [facility] [address] [place], [place] [address]ia [facility] [place] [address] Boat Pilot: Chidi Richter MD Hematocrit (Bld) [Volume fraction] 40.6 % Normal 36.3-47.1 [facility] Comment on above: Performed By: #### C NARCISO, CP #### [facility] [facility] [place] [address] Boat Pilot: Chidi Richter MD Hemoglobin (Bld) [Mass/Vol] 13.1 g/dL Normal 11.9-15.1 [facility] Comment on above: Performed By: #### C NARCISO, CP #### [facility] [place] [address] Boat Pilot: Chidi Richter MD MCH (RBC) [Entitic mass] 28.7 pg Normal 25.2-33.5 [facility] Comment on above: Performed By: #### C NARCISO, CP #### [facility] [facility] [place] [address] Boat Pilot: Chidi Richter MD MCHC (RBC) [Mass/Vol] 32.3 g/dL Normal 28.4-34.8 [facility] Comment on above: Performed By: #### C NARCISO, CP #### [facility] [address] [place] [address]. [place] [address] Boat Pilot: Chidi Richter MD MCV (RBC) [Entitic vol] 88.8 fL Normal 82.6-102.9 [facility] Comment on above: Performed By: #### C NARCISO, CP #### [facility] [address] [place] [address]. [place] [address] Boat Pilot: Chidi Richter MD NRBC Automated 0.0 per 100 WBC Normal 0.0 [facility] Comment on above: Performed By: #### C NARCISO, CP #### [facility] [address] [place] [address]. [place] [address] Boat Pilot: Chidi Richter MD Platelet mean volume (Bld) [Entitic vol] 10.0 fL Normal 8.1-13.5 [facility] Comment on above: Performed By: #### C NARCISO, CP #### [facility] [address] [place] [address]. [place] [address] Boat Pilot: Chidi Richter MD Platelets (Bld) [#/Vol] 222 10*3/uL Normal 138-453 [facility] Comment on above: Performed By: #### C NARCISO, CP #### [facility] [address] [place] [address]. [place] [address] Boat Pilot: Chidi Richter MD RBC (Bld) [#/Vol] 4.57 10*6/uL Normal 3.95-5.11 [facility] Comment on above: Performed By: #### C NARCISO, CP #### [facility] [address] [place], [place] [id number] Boat Pilot: Chidi Richter MD WBC (Bld) [#/Vol] 6.0 10*3/uL Normal 3.5-11.3 [facility] Comment on above: Performed By: #### C NARCISO, CP #### [facility] [address] [facility] [place] [address] Boat Pilot: Chidi Richter MD CBC with Auto Differentialon 12-01-2023 Basophils (Bld) [#/Vol] 0.03 10*3/uL [facility] Basophils/100 WBC (Bld) 1 % 0 - 2 % [facility] Eosinophils (Bld) [#/Vol] 0.08 10*3/uL [facility] Eosinophils/100 WBC (Bld) 1 % 1 - 4 % [facility] Erythrocyte distribution width (RBC) [Ratio] 13.0 % 11.8 - 14.4 % [facility] Hematocrit (Bld) [Volume fraction] 40.2 % 36.3 - 47.1 % [facility] Hemoglobin (Bld) [Mass/Vol] 13.0 g/dL 11.9 - 15.1 g/dL [facility] Immature granulocytes (Bld) [#/Vol] 0.01 10*3/uL [facility] Immature granulocytes/100 WBC (Bld) 0 % 0 [facility] Interpretation and review of laboratory results Abnormal [facility] Lymphocytes/100 WBC (Bld) 44 % High 24 - 43 % [facility] Lymphocytes/100 WBC (Bld) 2.68 % [facility] MCH (RBC) [Entitic mass] 28.8 pg 25.2 - 33.5 pg [facility] MCHC (RBC) [Mass/Vol] 32.3 g/dL 28.4 - 34.8 g/dL [facility] MCV (RBC) [Entitic vol] 89.1 fL 82.6 - 102.9 fL [facility] Monocytes/100 WBC (Bld) 8 % 3 - 12 % [facility] Monocytes/100 WBC (Bld) 0.47 % [facility] Neutrophils/100 WBC (Bld) 46 % 36 - 65 % [facility] Nucleated RBC/100 WBC (Bld) [Ratio] 0.0 % 0.0 per 100 WBC [facility] Platelet mean volume (Bld) [Entitic vol] 10.2 fL 8.1 - 13.5 fL [facility] Platelets (Bld) [#/Vol] 222 10*3/uL [facility] RBC (Bld) [#/Vol] 4.51 10*6/uL 3.95 - 5.11 m/uL [facility] Segmented neutrophils/100 WBC (Bld) 2.89 % [facility] WBC other (Bld) [#/Vol] 6.2 [facility] CBC with Diffon 12-01-2023 Abs. Basophil 0.03 k/uL Normal 0.00-0.20 [facility] Comment on above: Performed By: #### C NARCISO, CP #### [facility] [address] [place] [address] Boat Pilot: Chidi Richter MD Abs.Imm.Granulocyte 0.01 k/uL Normal 0.00-0.30 [facility] Comment on above: Performed By: #### C NARCISO, CP #### [facility] [address] [place] [address] Boat Pilot: Chidi Richter MD Abs.Neutrophil (Seg) 2.89 k/uL Normal 1.50-8.10 [facility] Comment on above: Performed By: #### C NARCISO, CP #### [facility] [address] [place] [address] [employer] Pilot: Chidi Richter MD Basophils/100 WBC (Bld) 1 % Normal 0-2 [facility] Comment on above: Performed By: #### C NARCISO, CP #### [facility] [address] [place] [address] Boat Pilot: Chidi Richter MD Eosinophils (Bld) [#/Vol] 0.08 10*3/uL Normal 0.00-0.44 [facility] Comment on above: Performed By: #### C NARCISO, CP #### [facility] [address] [place], [place] [address] [address] Boat Pilot: Chidi Richter MD Eosinophils/100 WBC (Bld) 1 % Normal 1-4 [facility] Comment on above: Performed By: #### C NARCISO, CP #### [facility] [address] [place] [address]. [place] [address] Boat Pilot: Chidi Richter MD Erythrocyte distribution width (RBC) [Ratio] 13.0 % Normal 11.8-14.4 [facility] Comment on above: Performed By: #### C NARCISO, CP #### [facility] [address] [place] [address]. [place] [address] Boat Pilot: Chidi Richter MD Hematocrit (Bld) [Volume fraction] 40.2 % Normal 36.3-47.1 [facility] Comment on above: Performed By: #### C NARCISO, CP #### [facility] [address] [place], [place] [address]ia [facility] [place] [address] Boat Pilot: Chidi Richter MD Hemoglobin (Bld) [Mass/Vol] 13.0 g/dL Normal 11.9-15.1 [facility] Comment on above: Performed By: #### C NARCISO, CP #### [facility] [address] [facility] [place] [address] Boat Pilot: Chidi Richter MD Immature granulocytes/100 WBC (Bld) 0 % Normal 0 [facility] Comment on above: Performed By: #### C NARCISO, CP #### [facility] [address] [place] [address]. [place] [address] Boat Pilot: Chidi Richter MD Lymphocytes (Bld) [#/Vol] 2.68 10*3/uL Normal 1.10-3.70 [facility] Comment on above: Performed By: #### C NARCISO, CP #### [facility] [address] [place] [address]. [place] [address] Boat Pilot: Chidi Richter MD Lymphocytes/100 WBC (Bld) 44 % High 24-43 [facility] Comment on above: Performed By: #### C NARCISO, CP #### [facility] [address] [place] [address]. [place] [address] Boat Pilot: Chidi Richter MD MCH (RBC) [Entitic mass] 28.8 pg Normal 25.2-33.5 [facility] Comment on above: Performed By: #### C NARCISO, CP #### [facility] [address] [place] [address]. [place] [address] Boat Pilot: Chidi Richter MD MCHC (RBC) [Mass/Vol] 32.3 g/dL Normal 28.4-34.8 [facility] Comment on above: Performed By: #### C NARCISO, CP #### [facility] [address] [place] [address]. [place] [address] Boat Pilot: Chidi Richter MD MCV (RBC) [Entitic vol] 89.1 fL Normal 82.6-102.9 [facility] Comment on above: Performed By: #### C NARCISO, CP #### [facility] [address] [place] [address] Boat Pilot: Chidi Richter MD Monocytes (Bld) [#/Vol] 0.47 10*3/uL Normal 0.10-1.20 [facility] Comment on above: Performed By: #### C BC, CP #### [facility] [address] [place] [address] Boat Pilot: Chidi Richter MD Monocytes/100 WBC (Bld) 8 % Normal 3-12 [facility] Comment on above: Performed By: #### C NARCISO, CP #### [facility] [address] [facility] [place] [address] Boat Pilot: Chidi Richter MD Neutrophil (Seg) 46 % Normal 36-65 [facility] Comment on above: Performed By: #### C NARCISO, CP #### [facility] [facility] [place] [address] Boat Pilot: Chidi Richter MD NRBC Automated 0.0 per 100 WBC Normal 0.0 [facility] Comment on above: Performed By: #### C NARCISO, CP #### [facility] [facility] [place] [address] Boat Pilot: Chidi Richter MD Platelet mean volume (Bld) [Entitic vol] 10.2 fL Normal 8.1-13.5 [facility] Comment on above: Performed By: #### C BC, CP #### [facility] [place] [address] Boat Pilot: Chidi Richter MD Platelets (Bld) [#/Vol] 222 10*3/uL Normal 138-453 [facility] Comment on above: Performed By: #### C NARCISO, CP #### [facility] [address] [place] [address] Boat Pilot: Chidi Richter MD RBC (Bld) [#/Vol] 4.51 10*6/uL Normal 3.95-5.11 [facility] Comment on above: Performed By: #### C NARCISO, CP #### [facility] [address] [place] [address] Boat Pilot: Chidi Richter MD WBC (Bld) [#/Vol] 6.2 10*3/uL Normal 3.5-11.3 [facility] Comment on above: Performed By: #### C NARCISO, CP #### [facility] [address] [place] [address] Boat Pilot: Chidi Richter MD CT CERVICAL SPINE WO [...] Alonso Jones MD 12/01/23 Final result Normal [facility] CT Cervical spine WO contras ton 12-01-2023 Radiology Study observation (narrative) [facility] CT HEAD WO CONTRASTon 2023 CT HEAD [...] Alonso Jones MD 12/01/23 Final result Normal [facility] CT Head WO contraston 2023 [facility] 2023 Albumin [Mass/Vol] 4.4 g/dL Normal 3.5-5.2 [facility] Comment on above: Performed By: #### C NARCISO, CP #### [facility] [address] [facility] [place] [address] Boat Pilot: Chidi Richter MD Alkaline Phos 53 U/L Normal 35-104 [facility] Comment on above: Performed By: #### C NARCISO, CP #### [facility] [address] [facility] [place] [address] Boat Pilot: Chidi Richter MD ALT [Catalytic activity/Vol] U/L Low 5-33 [facility] Comment on above: Performed By: #### C NARCISO, CP #### [facility] [address] [facility] [place] [address] Boat Pilot: Chidi Richter MD Anion gap [Moles/Vol] 7 mmol/L Low 9-17 [facility] Comment on above: Performed By: #### C NARCISO, CP #### [facility] [address] [facility] [place] [address] Boat Pilot: Chidi Richter MD AST [Catalytic activity/Vol] 14 U/L Normal <32 [facility] Comment on above: Performed By: #### C NARCISO, CP #### [facility] [address] [place] [address] Boat Pilot: Chidi Richter MD Bilirubin [Mass/Vol] 0.2 mg/dL Low 0.3-1.2 [facility] Comment on above: Performed By: #### C BC, CP #### [facility] [address] [place] [address] Boat Pilot: Chidi Richter MD BUN/CRE Ratio 16 Normal 9-20 [facility] Comment on above: Performed By: #### C NARCISO, CP #### [facility] [address] [place] [address] Boat Pilot: Chidi Richter MD Calcium [Mass/Vol] 9.4 mg/dL Normal 8.6-10.4 [facility] Comment on above: Performed By: #### C NARCISO, CP #### [facility] [address] [place] [address] Boat Pilot: Chidi Richter MD Chloride [Moles/Vol] 104 mmol/L Normal 98-107 [facility] Comment on above: Performed By: #### C BC, CP #### [facility] [address] [place] [address] Boat Pilot: Chidi Richter MD CO2 [Moles/Vol] 31 mmol/L Normal 20-31 [facility] Comment on above: Performed By: #### C BC, CP #### [facility] [address] [place] [address] Boat Pilot: Chidi Richter MD Creatinine [Mass/Vol] 0.9 mg/dL Normal 0.5-0.9 [facility] Comment on above: Performed By: #### C BC, CP #### [facility] [address] [place] [address] Boat Pilot: Chidi Richter MD GFR/1.73 sq M.predicted among non-blacks MDRD (S/P/Bld) [Vol rate/Area] mL/min/{1.73_m2} Normal >60 [facility] Comment on above: Result [...] Performed By: #### C NARCISO, CP #### [facility] [address] [facility] [place] [address] Boat Pilot: Chidi Richter MD Glucose [Mass/Vol] 95 mg/dL Normal 70-99 [facility] Comment on above: Performed By: #### C NARCISO, CP #### [facility] [address] [facility] [place] [address] Boat Pilot: Chidi Richter MD Potassium [Moles/Vol] 4.1 mmol/L Normal 3.7-5.3 [facility] Comment on above: Performed By: #### C NARCISO, CP #### [facility] [address] [place] [address] Boat Pilot: Chidi Richter MD Protein [Mass/Vol] 7.0 g/dL Normal 6.4-8.3 [facility] Comment on above: Performed By: #### C NARCISO, CP #### [facility] [address] [place] [address] Boat Pilot: Chidi Richter MD Sodium [Moles/Vol] 142 mmol/L Normal 135-144 [facility] Comment on above: Performed By: #### C NARCISO, CP #### [facility] [address] [place], [place] [address] Boat Pilot: Chidi Rihcter MD Urea nitrogen [Mass/Vol] 14 mg/dL Normal 6-20 [facility] Comment on above: Performed By: #### C NARCISO, CP #### [facility] [address] [place] [address] Boat Pilot: Chidi Richter MD No Panel Informationon 11-30 [...] seen in the head and cervical spine. [facility] No Panel InformationOrdered By: Alonso Jones on 12-01-2023 [facility] [employer] Work Phone: CBC AND AUTO DIFFon 11-30-19 24 ABSOLUTE BASOPHIL 0.0 X10E9/L Normal 0.0-0.2 [facility] Comment on above: Performed By: #### C SLAVA, BMP #### [facility] ([id number]) [address], [address] [place] [address] ABSOLUTE NEUTROPHIL 4.3 X10E9/L Normal 1.5-6.6 [facility] Comment on above: Performed By: #### C SLAVA, BMP #### [facility] ([id number]) [address], [address] [place] [address] Basophils/100 WBC (Bld) 0.6 % Normal [facility] Comment on above: Performed By: #### C SLAVA, BMP #### [facility] ([id number]) [address], [address] [place] [address] Eosinophils (Bld) [#/Vol] 0.1 10*3/uL Normal 0.0-0.4 [facility] Comment on above: Performed By: #### C SLAVA, BMP #### [facility] ([id number]) [address], [address] [place] [address] Eosinophils/100 WBC (Bld) 1.1 % Normal [facility] Comment on above: Performed By: #### C SLAVA, BMP #### [facility] ([id number]) [address], [address] [place] [address] Erythrocyte distribution width (RBC) [Ratio] 14.5 % Normal 11.5-15.0 [facility] Comment on above: Performed By: #### C BCA, BMP #### [facility] ([id number]) [address], [address] [place] [address] Hematocrit (Bld) [Volume fraction] 38.7 % Normal 35-47 [facility] Comment on above: Performed By: #### C BCA, BMP #### [facility] ([id number]) [address], [address] [place] [address] Hemoglobin (Bld) [Mass/Vol] 13.3 g/dL Normal 11.7-15.5 [facility] Comment on above: Performed By: #### C BCA, BMP #### [facility] ([id number]) [address], [facility] [address] [place] [address] Lymphocytes (Bld) [#/Vol] 2.5 10*3/uL Normal 1.0-3.5 [facility] Comment on above: Performed By: #### C BCA, BMP #### [facility] ([id number]) [address], [facility] [address] [place] [address] Lymphocytes/100 WBC (Bld) 32.3 % Normal [facility] Comment on above: Performed By: #### C BCA, BMP #### [facility] ([id number]) [address], [address] [place] [address] MCH (RBC) [Entitic mass] 29.1 pg Normal 27-34 [facility] Comment on above: Performed By: #### C BCA, BMP #### [facility] ([id number]) [address], [address] [place] [address] MCHC (RBC) [Mass/Vol] 34.3 g/dL Normal 32-36 [facility] Comment on above: Performed By: #### C BCA, BMP #### [facility] ([id number]) [address], [address] [place] [address] MCV (RBC) [Entitic vol] 85 fL Normal 80-100 [facility] Comment on above: Performed By: #### C BCA, BMP #### [facility] ([id number]) [address], [address] [place] [address] Monocytes (Bld) [#/Vol] 0.7 10*3/uL Normal 0-0.9 [facility] Comment on above: Performed By: #### C SLAVA, BMP #### [facility] ([id number]) [address], [address] [place] [address] Monocytes/100 WBC (Bld) 9.6 % Normal [facility] Comment on above: Performed By: #### C SLAVA, BMP #### [facility] ([id number]) [address], [address] [place] [address] Neutrophils/100 WBC (Bld) 56.4 % Normal [facility] Comment on above: Performed By: #### C SLAVA, BMP #### [facility] ([id number]) [address], [address] [place] [address] Platelet mean volume (Bld) [Entitic vol] 7.9 fL Normal 7-12 [facility] Comment on above: Performed By: #### C SLAVA, BMP #### [facility] ([id number]) [address], [address] [place] [address] Platelets (Bld) [#/Vol] 221 10*3/uL Normal 150-450 [facility] Comment on above: Performed By: #### C SLAVA, BMP #### [facility] ([id number]) [address], [address] [place] [address] RBC COUNT 4.57 X10E12/L Normal 3.80-5.20 [facility] Comment on above: Performed By: #### C SLAVA, BMP #### [facility] ([id number]) [address], [address] [place] [address] WBC (Bld) [#/Vol] 7.7 10*3/uL Normal 4.0-11.0 [facility] Comment on above: Performed By: #### C SLAVA, BMP #### [facility] ([id number]) [address] [place] [address] COMPREHENSIVE METABOLIC PANE Basim 11-30-2023 Albumin [Mass/Vol] 4.4 g/dL Normal 3.2-5.3 [facility] Comment on above: Performed By: #### C BCA, BMP #### [facility] ([id number]) [address] [place] [address] ALP [Catalytic activity/Vol] 45 U/L Normal 39-130 [facility] Comment on above: Performed By: #### C BCA, BMP #### [facility] ([id number]) [address] [place] [address] ALT [Catalytic activity/Vol] 3 U/L Normal 0-31 [facility] Comment on above: Performed By: #### C BCA, BMP #### [facility] ([id number]) [address], [address] [place] [address] Anion gap [Moles/Vol] 8 mmol/L Normal 5-15 [facility] Comment on above: Performed By: #### C BCA, BMP #### [facility] ([id number]) [address], [address] [place] [address] AST [Catalytic activity/Vol] 14 U/L Normal 0-41 [facility] Comment on above: Performed By: #### C BCA, BMP #### [facility] ([id number]) [address], [address] [place] [address] Bilirubin [Mass/Vol] 0.6 mg/dL Normal 0.3-1.2 [facility] Comment on above: Performed By: #### C BCA, BMP #### [facility] ([id number]) [address], [address] [place] [address] Calcium [Mass/Vol] 9.7 mg/dL Normal 8.5-10.5 [facility] Comment on above: Performed By: #### C BCA, BMP #### [facility] ([id number]) [address], [address] [place] [address] Chloride [Moles/Vol] 103 mmol/L Normal 98-109 [facility] Comment on above: Performed By: #### C BCA, BMP #### [facility] ([id number]) [address], [address] [place] [address] CO2 [Moles/Vol] 31 mmol/L Normal 22-32 [facility] Comment on above: Performed By: #### C BCA, BMP #### [facility] ([id number]) [address], [address] [place] [address] Creatinine [Mass/Vol] 0.85 mg/dL Normal 0.40-1.00 [facility] Comment on above: Result Comment: METH OD TRACEABLE TO IDMS STANDARD Performed By: #### C BCA, BMP #### [facility] ([id number]) [address], [address] [place] [address] eGFR (CKD-EPI) NON-RACE DEPENDENT >90 Normal >59 [facility] Comment on above: Result Comment: Reported eGFR is based on the CKD-EPI 2020 equation that does not use a race coefficient. Performed By: #### C BCA, BMP #### [facility] ([id number]) [address], [address] [place] [address] Glucose [Mass/Vol] 98 mg/dL Normal 65-99 [facility] Comment on above: Performed By: #### C BCA, BMP #### [facility] ([id number]) [address], [address] [place] [address] Potassium [Moles/Vol] 4.1 mmol/L Normal 3.5-5.0 [facility] Comment on above: Performed By: #### C BCA, BMP #### [facility] ([id number]) [address], [address] [place] [address] Protein [Mass/Vol] 6.9 g/dL Normal 6.0-8.0 [facility] Comment on above: Performed By: #### C SLAVA, BMP #### [facility] ([id number]) [address], [address] [place] [address] Sodium [Moles/Vol] 142 mmol/L Normal 134-146 [facility] Comment on above: Performed By: #### C SLAVA, BMP #### [facility] ([id number]) [address], [address] [place] [address] Urea nitrogen [Mass/Vol] 15 mg/dL Normal 5-23 [facility] Comment on above: Performed By: #### C SLAVA, BMP #### [facility] ([id number]) [address], [address] [place] [address] CBC AND AUTO DIFFon 11-29-19 24 ABSOLUTE BASOPHIL 0.0 X10E9/L Normal 0.0-0.2 [facility] Comment on above: Performed By: #### C SLAVA, BMP #### [facility] ([id number]) [address], [address] [place] [address] ABSOLUTE NEUTROPHIL 2.3 X10E9/L Normal 1.5-6.6 [facility] Comment on above: Performed By: #### C BCA, BMP #### [facility] ([id number]) [address], [address] [place] [address] Basophils/100 WBC (Bld) 0.5 % Normal [facility] Comment on above: Performed By: #### C BCA, BMP #### [facility] ([id number]) [address], [address] [place] [address] Eosinophils (Bld) [#/Vol] 0.1 10*3/uL Normal 0.0-0.4 [facility] Comment on above: Performed By: #### C BCA, BMP #### [facility] ([id number]) [address] [place] [address] Eosinophils/100 WBC (Bld) 2.2 % Normal [facility] Comment on above: Performed By: #### C BCA, BMP #### [facility] ([id number]) [address], [address] [place] [address] Erythrocyte distribution width (RBC) [Ratio] 14.1 % Normal 11.5-15.0 [facility] Comment on above: Performed By: #### C BCA, BMP #### [facility] ([id number]) [address], [address] [place] [address] Hematocrit (Bld) [Volume fraction] 39.7 % Normal 35-47 [facility] Comment on above: Performed By: #### C BCA, BMP #### [facility] ([id number]) [address], [address] [place] [address] Hemoglobin (Bld) [Mass/Vol] 13.4 g/dL Normal 11.7-15.5 [facility] Comment on above: Performed By: #### C BCA, BMP #### [facility] ([id number]) [address], [address] [place] [address] Lymphocytes (Bld) [#/Vol] 2.6 10*3/uL Normal 1.0-3.5 [facility] Comment on above: Performed By: #### C BCA, BMP #### [facility] ([id number]) [address], [address] [place] [address] Lymphocytes/100 WBC (Bld) 46.1 % Normal [facility] Comment on above: Performed By: #### C BCA, BMP #### [facility] ([id number]) [address], [address] [place] [address] MCH (RBC) [Entitic mass] 29.1 pg Normal 27-34 [facility] Comment on above: Performed By: #### C SLAVA, BMP #### [facility] ([id number]) [address], [address] [place] [address] MCHC (RBC) [Mass/Vol] 33.8 g/dL Normal 32-36 [facility] Comment on above: Performed By: #### C SLAVA, BMP #### [facility] ([id number]) [address], [address] [place] [address] MCV (RBC) [Entitic vol] 86 fL Normal 80-100 [facility] Comment on above: Performed By: #### C SLAVA, BMP #### [facility] ([id number]) [address], [address] [place] [address] Monocytes (Bld) [#/Vol] 0.5 10*3/uL Normal 0-0.9 [facility] Comment on above: Performed By: #### C SLAVA, BMP #### [facility] ([id number]) [address], [address] [place] [address] Monocytes/100 WBC (Bld) 9.7 % Normal [facility] Comment on above: Performed By: #### Kristen PEDERSEN, BMP #### [facility] ([id number]) [address], [address] [place] [address] Neutrophils/100 WBC (Bld) 41.5 % Normal [facility] Comment on above: Performed By: #### C SLAVA, BMP #### [facility] ([id number]) [address] [place] [address] Platelet mean volume (Bld) [Entitic vol] 8.2 fL Normal 7-12 [facility] Comment on above: Performed By: #### Kristen PEDERSEN, BMP #### [facility] ([id number]) [address], [address] [place] [address] Platelets (Bld) [#/Vol] 205 10*3/uL Normal 150-450 [facility] Comment on above: Performed By: #### C BCA, BMP #### [facility] ([id number]) [address], [address] [place] [address] RBC COUNT 4.60 X10E12/L Normal 3.80-5.20 [facility] Comment on above: Performed By: #### C SLAVA, BMP #### [facility] ([id number]) [address], [address] [place] [address] WBC (Bld) [#/Vol] 5.7 10*3/uL Normal 4.0-11.0 [facility] Comment on above: Performed By: #### C SLAVA, BMP #### [facility] ([id number]) [address], [address] [place] [address] COMPREHENSIVE METABOLIC PANE Basim 11-29-2023 Albumin [Mass/Vol] 4.2 g/dL Normal 3.2-5.3 [facility] Comment on above: Performed By: #### C BCA, BMP #### [facility] ([id number]) [address], [address] [place] [address] ALP [Catalytic activity/Vol] 44 U/L Normal 39-130 [facility] Comment on above: Performed By: #### C BCA, BMP #### [facility] ([id number]) [address], [address] [place] [address] ALT [Catalytic activity/Vol] 3 U/L Normal 0-31 [facility] Comment on above: Performed By: #### C BCA, BMP #### [facility] ([id number]) [address], [address] [place] [address] Anion gap [Moles/Vol] 9 mmol/L Normal 5-15 [facility] [place] [facility] Comment on above: Performed By: #### C BCA, BMP #### [facility] ([id number]) [address], [address] [place] [address] AST [Catalytic activity/Vol] 15 U/L Normal 0-41 [facility] Comment on above: Performed By: #### C BCA, BMP #### [facility] ([id number]) [address] [place] [address] Bilirubin [Mass/Vol] 0.5 mg/dL Normal 0.3-1.2 [facility] Comment on above: Performed By: #### C BCA, BMP #### [facility] ([id number]) [address], [address] [place] [address] Calcium [Mass/Vol] 9.6 mg/dL Normal 8.5-10.5 [facility] Comment on above: Performed By: #### C BCA, BMP #### [facility] ([id number]) [address], [address] [place] [address] Chloride [Moles/Vol] 104 mmol/L Normal 98-109 [facility] Comment on above: Performed By: #### C BCA, BMP #### [facility] ([id number]) [address], [address] [place] [address] CO2 [Moles/Vol] 29 mmol/L Normal 22-32 [facility] Comment on above: Performed By: #### C BCA, BMP #### [facility] ([id number]) [address], [address] [place] [address] Creatinine [Mass/Vol] 0.92 mg/dL Normal 0.40-1.00 [facility] Comment on above: Result Comment: METH OD TRACEABLE TO IDMS STANDARD Performed By: #### C BCA, BMP #### [facility] ([id number]) [address], [address] [place] [address] eGFR (CKD-EPI) NON-RACE DEPENDENT >90 Normal >59 [facility] Comment on above: Result Comment: Reported eGFR is based on the CKD-EPI 2020 equation that does not use a race coefficient. Performed By: #### C BCA, BMP #### [facility] ([id number]) [address], [address] [place] [address] Glucose [Mass/Vol] 92 mg/dL Normal 65-99 [facility] Comment on above: Performed By: #### C BCA, BMP #### [facility] ([id number]) [address] [address] [place] [address] Potassium [Moles/Vol] 4.0 mmol/L Normal 3.5-5.0 [facility] Comment on above: Performed By: #### C BCA, BMP #### [facility] ([id number]) [address] [place] [address] Protein [Mass/Vol] 7.0 g/dL Normal 6.0-8.0 [facility] Comment on above: Performed By: #### C BCA, BMP #### [facility] ([id number]) [address], [address] [place] [address] Sodium [Moles/Vol] 142 mmol/L Normal 134-146 [facility] Comment on above: Performed By: #### C BCA, BMP #### [facility] ([id number]) [address] [place] [address] Urea nitrogen [Mass/Vol] 17 mg/dL Normal 5-23 [facility] Comment on above: Performed By: #### C BCA, BMP #### [facility] ([id number]) [address] [place] [address] Glucose Glucometer (BldC) [M ass/Vol]on 11-29-2023 Glucose [Mass/Vol] 84 mg/dL Normal 65-99 [facility] CBC AND AUTO DIFFon 11-28-19 24 ABSOLUTE BASOPHIL 0.0 X10E9/L Normal 0.0-0.2 [facility] Comment on above: Performed By: #### C SLAVA, BMP #### [facility] ([id number]) [address], [address] [place] [address] ABSOLUTE NEUTROPHIL 3.0 X10E9/L Normal 1.5-6.6 [facility] Comment on above: Performed By: #### C SLAVA, BMP #### [facility] ([id number]) [address], [address] [place] [address] Basophils/100 WBC (Bld) 0.6 % Normal [facility] Comment on above: Performed By: #### C SLAVA, BMP #### [facility] ([id number]) [address], [address] [place] [address] Eosinophils (Bld) [#/Vol] 0.1 10*3/uL Normal 0.0-0.4 [facility] Comment on above: Performed By: #### C SLAVA, BMP #### [facility] ([id number]) [address], [address] [place] [address] Eosinophils/100 WBC (Bld) 1.0 % Normal [facility] Comment on above: Performed By: #### C SLAVA, BMP #### [facility] ([id number]) [address], [address] [place] [address] Erythrocyte distribution width (RBC) [Ratio] 14.6 % Normal 11.5-15.0 [facility] Comment on above: Performed By: #### C SLAVA, BMP #### [facility] ([id number]) [address], [address] [place] [address] Hematocrit (Bld) [Volume fraction] 40.1 % Normal 35-47 [facility] Comment on above: Performed By: #### C BCA, BMP #### [facility] ([id number]) [address], [address] [place] [address] Hemoglobin (Bld) [Mass/Vol] 13.7 g/dL Normal 11.7-15.5 [facility] Comment on above: Performed By: #### C BCA, BMP #### [facility] ([id number]) [address] [place] [address] Lymphocytes (Bld) [#/Vol] 2.8 10*3/uL Normal 1.0-3.5 [facility] Comment on above: Performed By: #### C SLAVA, BMP #### [facility] ([id number]) [address] [place] [address] Lymphocytes/100 WBC (Bld) 43.5 % Normal [facility] Comment on above: Performed By: #### C SLAVA, BMP #### [facility] ([id number]) [address] [place] [address] MCH (RBC) [Entitic mass] 29.3 pg Normal 27-34 [facility] Comment on above: Performed By: #### C BCA, BMP #### [facility] ([id number]) [address] [place] [address] MCHC (RBC) [Mass/Vol] 34.1 g/dL Normal 32-36 [facility] Comment on above: Performed By: #### C BCA, BMP #### [facility] ([id number]) [address], [address] [place] [address] MCV (RBC) [Entitic vol] 86 fL Normal 80-100 [facility] Comment on above: Performed By: #### C BCA, BMP #### [facility] ([id number]) [address], [address] [place] [address] Monocytes (Bld) [#/Vol] 0.5 10*3/uL Normal 0-0.9 [facility] Comment on above: Performed By: #### C SLAVA, BMP #### [facility] ([id number]) [address], [address] [place] [address] Monocytes/100 WBC (Bld) 8.2 % Normal [facility] Comment on above: Performed By: #### C SLAVA, BMP #### [facility] ([id number]) [address] [place] [address] Neutrophils/100 WBC (Bld) 46.7 % Normal [facility] Comment on above: Performed By: #### C SLAVA, BMP #### [facility] ([id number]) [address] [place] [address] Platelet mean volume (Bld) [Entitic vol] 8.8 fL Normal 7-12 [facility] Comment on above: Performed By: #### C SLAVA, BMP #### [facility] ([id number]) [address] [place] [address] Platelets (Bld) [#/Vol] 220 10*3/uL Normal 150-450 [facility] Comment on above: Performed By: #### C SLAVA, BMP #### [facility] ([id number]) [address] [place] [address] RBC COUNT 4.67 X10E12/L Normal 3.80-5.20 [facility] Comment on above: Performed By: #### C SLAVA, BMP #### [facility] ([id number]) [address], [address] [place] [address] WBC (Bld) [#/Vol] 6.4 10*3/uL Normal 4.0-11.0 [facility] Comment on above: Performed By: #### C SLAVA, BMP #### [facility] ([id number]) [address], [address] [place] [address] COMPREHENSIVE METABOLIC PANE Basim 11-28-2023 Albumin [Mass/Vol] 4.8 g/dL Normal 3.2-5.3 [facility] Comment on above: Performed By: #### C BCA, BMP #### [facility] ([id number]) [address], [address] [place] [address] ALP [Catalytic activity/Vol] 41 U/L Normal 39-130 [facility] Comment on above: Performed By: #### C BCA, BMP #### [facility] ([id number]) [address], [address] [place] [address] ALT [Catalytic activity/Vol] 4 U/L Normal 0-31 [facility] Comment on above: Performed By: #### C BCA, BMP #### [facility] ([id number]) [address] [place] [address] Anion gap [Moles/Vol] 12 mmol/L Normal 5-15 [facility] Comment on above: Performed By: #### C BCA, BMP #### [facility] ([id number]) [address] [place] [address] AST [Catalytic activity/Vol] 29 U/L Normal 0-41 [facility] Comment on above: Performed By: #### C BCA, BMP #### [facility] ([id number]) [address] [place] [address] Bilirubin [Mass/Vol] 0.8 mg/dL Normal 0.3-1.2 [facility] Comment on above: Performed By: #### C BCA, BMP #### [facility] ([id number]) [address] [place] [address] Calcium [Mass/Vol] 9.4 mg/dL Normal 8.5-10.5 [facility] Comment on above: Performed By: #### C BCA, BMP #### [facility] ([id number]) [address] [place] [address] Chloride [Moles/Vol] 104 mmol/L Normal 98-109 [facility] Comment on above: Performed By: #### C BCA, BMP #### [facility] ([id number]) [address], [address] [place] [address] CO2 [Moles/Vol] 25 mmol/L Normal 22-32 [facility] Comment on above: Performed By: #### C BCA, BMP #### [facility] ([id number]) [address], [address] [place] [address] Creatinine [Mass/Vol] 0.82 mg/dL Normal 0.40-1.00 [facility] Comment on above: Result Comment: METH OD TRACEABLE TO IDMS STANDARD Performed By: #### C BCA, BMP #### [facility] ([id number]) [address], [address] [place] [address] eGFR (CKD-EPI) NON-RACE DEPENDENT >90 Normal >59 [facility] Comment on above: Result Comment: Reported eGFR is based on the CKD-EPI 2020 equation that does not use a race coefficient. Performed By: #### C BCA, BMP #### [facility] ([id number]) [address] [place] [address] Glucose [Mass/Vol] 81 mg/dL Normal 65-99 [facility] Comment on above: Performed By: #### C BCA, BMP #### [facility] ([id number]) [address] [place] [address] Potassium [Moles/Vol] 5.2 mmol/L High 3.5-5.0 [facility] Comment on above: Result Comment: SPEC IMEN HEMOLYZED, RESULTS INCREASED MARKEDLY HEMOLYZED Performed By: #### C BCA, BMP #### [facility] ([id number]) [address] [place] [address] Protein [Mass/Vol] 7.4 g/dL Normal 6.0-8.0 [facility] Comment on above: Performed By: #### C BCA, BMP #### [facility] ([id number]) [address] [place] [address] Sodium [Moles/Vol] 141 mmol/L Normal 134-146 [facility] Comment on above: Result Comment: RESU LTS QUESTIONABLE DUE TO HEMOLYSIS MARKEDLY HEMOLYZED Performed By: #### C SLAVA, BMP #### [facility] ([id number]) [address] [place] [address] Urea nitrogen [Mass/Vol] 21 mg/dL Normal 5-23 [facility] Comment on above: Performed By: #### C SLAVA, BMP #### [facility] ([id number]) [address] [place] [address] CBC AND AUTO DIFFon 11-27-19 24 ABSOLUTE BASOPHIL 0.0 X10E9/L Normal 0.0-0.2 [facility] Comment on above: Performed By: #### C BCA, CMP ####[facility] ([id number])[address] [address] ABSOLUTE NEUTROPHIL 4.7 X10E9/L Normal 1.5-6.6 [facility] Comment on above: Performed By: #### C BCA, CMP ####[facility] ([id number])[address] [place] [address] Basophils/100 WBC (Bld) 0.5 % Normal [facility] Comment on above: Performed By: #### C BCA, CMP ####[facility] ([id number])[address] [place] [address] Eosinophils (Bld) [#/Vol] 0.1 10*3/uL Normal 0.0-0.4 [facility] Comment on above: Performed By: #### C SLAVA, CMP ####[facility] ([id number])[address] [place] [address] Eosinophils/100 WBC (Bld) 1.3 % Normal [facility] Comment on above: Performed By: #### C SLAVA, CMP ####[facility] ([id number])[address] [address] Erythrocyte distribution width (RBC) [Ratio] 14.1 % Normal 11.5-15.0 [facility] Comment on above: Performed By: #### C SLAVA, CMP ####[facility] ([id number])[address], [place] [address] Hematocrit (Bld) [Volume fraction] 41.2 % Normal 35-47 [facility] Comment on above: Performed By: #### C SLAVA, CMP ####[facility] ([id number])[address], [place] [address] Hemoglobin (Bld) [Mass/Vol] 13.9 g/dL Normal 11.7-15.5 [facility] Comment on above: Performed By: #### C SLAVA, CMP ####[facility] ([id number])[address] [place] [address] Lymphocytes (Bld) [#/Vol] 3.2 10*3/uL Normal 1.0-3.5 [facility] Comment on above: Performed By: #### C SLAVA, CMP ####[facility] ([id number])[address] [address] Lymphocytes/100 WBC (Bld) 36.0 % Normal [facility] Comment on above: Performed By: #### C BCA, CMP ####[facility] ([id number])[address], [place] [address] MCH (RBC) [Entitic mass] 28.8 pg Normal 27-34 [facility] Comment on above: Performed By: #### C BCA, CMP ####[facility] ([id number])[address], [place] [address] MCHC (RBC) [Mass/Vol] 33.6 g/dL Normal 32-36 [facility] Comment on above: Performed By: #### C BCA, CMP ####[facility] ([id number])[address] [place] [address] MCV (RBC) [Entitic vol] 86 fL Normal 80-100 [facility] Comment on above: Performed By: #### C BCA, CMP ####[facility] ([id number])[address], [address] [place] [address] Monocytes (Bld) [#/Vol] 0.7 10*3/uL Normal 0-0.9 [facility] Comment on above: Performed By: #### C BCA, CMP ####[facility] ([id number])[address], [address], [place] [address] Monocytes/100 WBC (Bld) 8.3 % Normal [facility] Comment on above: Performed By: #### C BCA, CMP ####[facility] ([id number])[address] [place] [address] Neutrophils/100 WBC (Bld) 53.9 % Normal [facility] Comment on above: Performed By: #### C BCA, CMP ####[facility] ([id number])[address], [place] [address] Platelet mean volume (Bld) [Entitic vol] 8.2 fL Normal 7-12 [facility] Comment on above: Performed By: #### C BCA, CMP ####[facility] ([id number])[address] [place] [address] Platelets (Bld) [#/Vol] 258 10*3/uL Normal 150-450 [facility] Comment on above: Performed By: #### C BCA, CMP ####[facility] ([id number])[address], [address] [place] [address] RBC COUNT 4.81 X10E12/L Normal 3.80-5.20 [facility] Comment on above: Performed By: #### C BCA, CMP ####[facility] ([id number])[address] [address] WBC (Bld) [#/Vol] 8.8 10*3/uL Normal 4.0-11.0 [facility] Comment on above: Performed By: #### C BCA, CMP ####[facility] ([id number])[address] [address] COMPREHENSIVE METABOLIC PANE Basim 11-27-2023 Albumin [Mass/Vol] 4.7 g/dL Normal 3.2-5.3 [facility] Comment on above: Performed By: #### C BCA, BMP #### [facility] ([id number]) [address], [address] [place] [address] ALP [Catalytic activity/Vol] 48 U/L Normal 39-130 [facility] Comment on above: Performed By: #### C BCA, BMP #### [facility] ([id number]) [address], [address] [place] [address] ALT [Catalytic activity/Vol] 4 U/L Normal 0-31 [facility] Comment on above: Performed By: #### C BCA, BMP #### [facility] ([id number]) [address], [address] [place] [address] Anion gap [Moles/Vol] 11 mmol/L Normal 5-15 [facility] Comment on above: Performed By: #### C BCA, BMP #### [facility] ([id number]) [address], [address] [place] [address] AST [Catalytic activity/Vol] 15 U/L Normal 0-41 [facility] Comment on above: Performed By: #### C BCA, BMP #### [facility] ([id number]) [address] [place] [address] Bilirubin [Mass/Vol] 0.6 mg/dL Normal 0.3-1.2 [facility] Comment on above: Performed By: #### C BCA, BMP #### [facility] ([id number]) [address] [place] [address] Calcium [Mass/Vol] 9.8 mg/dL Normal 8.5-10.5 [facility] Comment on above: Performed By: #### C BCA, BMP #### [facility] ([id number]) [address], [address] [place] [address] Chloride [Moles/Vol] 103 mmol/L Normal 98-109 [facility] Comment on above: Performed By: #### C BCA, BMP #### [facility] ([id number]) [address], [address] [place] [address] CO2 [Moles/Vol] 24 mmol/L Normal 22-32 [facility] Comment on above: Performed By: #### C BCA, BMP #### [facility] ([id number]) [address], [address] [place] [address] Creatinine [Mass/Vol] 0.76 mg/dL Normal 0.40-1.00 [facility] Comment on above: Result Comment: METH OD TRACEABLE TO IDMS STANDARD Performed By: #### C BCA, BMP #### [facility] ([id number]) [address], [address] [place] [address] eGFR (CKD-EPI) NON-RACE DEPENDENT >90 Normal >59 [facility] Comment on above: Result Comment: Reported eGFR is based on the CKD-EPI 2020 equation that does not use a race coefficient. Performed By: #### C BCA, BMP #### [facility] ([id number]) [address], [address] [place] [address] Glucose [Mass/Vol] 83 mg/dL Normal 65-99 [facility] Comment on above: Performed By: #### C BCA, BMP #### [facility] ([id number]) [address] [address] [place] [address] Potassium [Moles/Vol] 3.8 mmol/L Normal 3.5-5.0 [facility] Comment on above: Performed By: #### C BCA, BMP #### [facility] ([id number]) [address] [place] [address] Protein [Mass/Vol] 7.4 g/dL Normal 6.0-8.0 [facility] Comment on above: Performed By: #### C BCA, BMP #### [facility] ([id number]) [address] [place] [address] Sodium [Moles/Vol] 138 mmol/L Normal 134-146 [facility] Comment on above: Performed By: #### C BCA, BMP #### [facility] ([id number]) [address] [place] [address] Urea nitrogen [Mass/Vol] 22 mg/dL Normal 5-23 [facility] Comment on above: Performed By: #### C BCA, BMP #### [facility] ([id number]) [address] [place] [address] CBC AND AUTO DIFFon 11-26-19 24 ABSOLUTE BASOPHIL 0.0 X10E9/L Normal 0.0-0.2 [facility] Comment on above: Performed By: #### C BCA, CMP ####[facility] ([id number])[address] [address] ABSOLUTE NEUTROPHIL 3.0 X10E9/L Normal 1.5-6.6 [facility] Comment on above: Performed By: #### C BCA, CMP ####[facility] ([id number])[address] [address] Basophils/100 WBC (Bld) 0.7 % Normal [facility] Comment on above: Performed By: #### C BCA, CMP ####[facility] ([id number])[address] [place] [address] Eosinophils (Bld) [#/Vol] 0.0 10*3/uL Normal 0.0-0.4 [facility] Comment on above: Performed By: #### C BCA, CMP ####[facility] ([id number])[address] [address] Eosinophils/100 WBC (Bld) 0.7 % Normal [facility] Comment on above: Performed By: #### C BCA, CMP ####[facility] ([id number])[address] [address] [address] Erythrocyte distribution width (RBC) [Ratio] 14.6 % Normal 11.5-15.0 [facility] Comment on above: Performed By: #### C BCA, CMP ####[facility] ([id number])[address] [address] Hematocrit (Bld) [Volume fraction] 41.1 % Normal 35-47 [facility] Comment on above: Performed By: #### C BCA, CMP ####[facility] ([id number])[address], [place] [address] Hemoglobin (Bld) [Mass/Vol] 13.6 g/dL Normal 11.7-15.5 [facility] Comment on above: Performed By: #### C BCA, CMP ####[facility] ([id number])[address], [place] [address] Lymphocytes (Bld) [#/Vol] 2.7 10*3/uL Normal 1.0-3.5 [facility] Comment on above: Performed By: #### C SLAVA, CMP ####[facility] ([id number])[address] [place] [address] Lymphocytes/100 WBC (Bld) 41.7 % Normal [facility] Comment on above: Performed By: #### C SLAVA, CMP ####[facility] ([id number])[address], [place] [address] MCH (RBC) [Entitic mass] 28.9 pg Normal 27-34 [facility] Comment on above: Performed By: #### C SLAVA, CMP ####[facility] ([id number])[address], [address], [place] [address] MCHC (RBC) [Mass/Vol] 33.2 g/dL Normal 32-36 [facility] Comment on above: Performed By: #### C BCA, CMP ####[facility] ([id number])[address], [place] [address] MCV (RBC) [Entitic vol] 87 fL Normal 80-100 [facility] Comment on above: Performed By: #### C BCA, CMP ####[facility] ([id number])[address], [place] [address] Monocytes (Bld) [#/Vol] 0.7 10*3/uL Normal 0-0.9 [facility] Comment on above: Performed By: #### C BCA, CMP ####[facility] ([id number])[address], [place] [address] Monocytes/100 WBC (Bld) 10.5 % Normal [facility] Comment on above: Performed By: #### C BCA, CMP ####[facility] ([id number])[address], [place] [address] Neutrophils/100 WBC (Bld) 46.4 % Normal [facility] Comment on above: Performed By: #### C SLAVA, CMP ####[facility] ([id number])[address], [place] [address] Platelet mean volume (Bld) [Entitic vol] 8.2 fL Normal 7-12 [facility] Comment on above: Performed By: #### C SLAVA, CMP ####[facility] ([id number])[address] [place] [address] Platelets (Bld) [#/Vol] 226 10*3/uL Normal 150-450 [facility] Comment on above: Performed By: #### C SLAVA, CMP ####[facility] ([id number])[address], [place] [address] RBC COUNT 4.72 X10E12/L Normal 3.80-5.20 [facility] Comment on above: Performed By: #### C BCA, CMP ####[facility] ([id number])[address], [place] [address] WBC (Bld) [#/Vol] 6.6 10*3/uL Normal 4.0-11.0 [facility] Comment on above: Performed By: #### C BCA, CMP ####[facility] ([id number])[address], [place] [address] COMPREHENSIVE METABOLIC PANE Basim 11-26-2023 Albumin [Mass/Vol] 4.7 g/dL Normal 3.2-5.3 [facility] Comment on above: Performed By: #### C BCA, CMP ####[facility] ([id number])[address], [place] [address] ALP [Catalytic activity/Vol] 48 U/L Normal 39-130 [facility] Comment on above: Performed By: #### C BCA, CMP ####[facility] ([id number])[address], [place] [address] ALT [Catalytic activity/Vol] 4 U/L Normal 0-31 [facility] Comment on above: Performed By: #### C BCA, CMP ####[facility] ([id number])[address], [place] [address] Anion gap [Moles/Vol] 12 mmol/L Normal 5-15 [facility] Comment on above: Performed By: #### C BCA, CMP ####[facility] ([id number])[address], [place] [address] AST [Catalytic activity/Vol] 14 U/L Normal 0-41 [facility] Comment on above: Performed By: #### C BCA, CMP ####[facility] ([id number])[address], [place] [address] Bilirubin [Mass/Vol] 0.8 mg/dL Normal 0.3-1.2 [facility] Comment on above: Performed By: #### C BCA, CMP ####[facility] ([id number])[address], [place] [address] Calcium [Mass/Vol] 9.8 mg/dL Normal 8.5-10.5 [facility] Comment on above: Performed By: #### C BCA, CMP ####[facility] ([id number])[address], [place] [address] Chloride [Moles/Vol] 106 mmol/L Normal 98-109 [facility] Comment on above: Performed By: #### C BCA, CMP ####[facility] ([id number])[address], [place] [address] CO2 [Moles/Vol] 24 mmol/L Normal 22-32 [facility] Comment on above: Performed By: #### C BCA, CMP ####[facility] ([id number])[address], [place] [address] Creatinine [Mass/Vol] 0.78 mg/dL Normal 0.40-1.00 [facility] Comment on above: Result Comment: METH OD TRACEABLE TO IDMS STANDARD Performed By: #### C BCA, CMP ####[facility] ([id number])[address], [place] [address] eGFR (CKD-EPI) NON-RACE DEPENDENT >90 Normal >59 [facility] Comment on above: Result Comment: Reported eGFR is based on the CKD-EPI 2020 equation that does not use a race coefficient. Performed By: #### C BCA, CMP ####[facility] ([id number])[address], [place] [address] Glucose [Mass/Vol] 73 mg/dL Normal 65-99 [facility] Comment on above: Performed By: #### C BCA, CMP ####[facility] ([id number])[address], [place] [address] Potassium [Moles/Vol] 4.3 mmol/L Normal 3.5-5.0 [facility] Comment on above: Performed By: #### C BCA, CMP ####[facility] ([id number])[address], [place] [address] Protein [Mass/Vol] 7.3 g/dL Normal 6.0-8.0 [facility] Comment on above: Performed By: #### C BCA, CMP ####[facility] ([id number])[address] [address] Sodium [Moles/Vol] 142 mmol/L Normal 134-146 [facility] Comment on above: Performed By: #### C BCA, CMP ####[facility] ([id number])[address] [address] Urea nitrogen [Mass/Vol] 16 mg/dL Normal 5-23 [facility] Comment on above: Performed By: #### C BCA, CMP ####[facility] ([id number])[address] [place] [address] CBC AND AUTO DIFFon 11-25-19 24 ABSOLUTE BASOPHIL 0.0 X10E9/L Normal 0.0-0.2 [facility] Comment on above: Performed By: #### C MP, CBCA ####[facility] ([id number])[address] [place] [address] ABSOLUTE NEUTROPHIL 4.0 X10E9/L Normal 1.5-6.6 [facility] Comment on above: Performed By: #### C MP, CBCA ####[facility] ([id number])[address] [place] [address] Basophils/100 WBC (Bld) 0.4 % Normal [facility] Comment on above: Performed By: #### C MP, CBCA ####[facility] ([id number])[address] [place] [address] Eosinophils (Bld) [#/Vol] 0.0 10*3/uL Normal 0.0-0.4 [facility] Comment on above: Performed By: #### C MP, CBCA ####[facility] ([id number])[address] [place] [address] Eosinophils/100 WBC (Bld) 0.5 % Normal [facility] Comment on above: Performed By: #### C MP, CBCA ####[facility] ([id number])[address] [place] [address] Erythrocyte distribution width (RBC) [Ratio] 14.6 % Normal 11.5-15.0 [facility] Comment on above: Performed By: #### C MP, CBCA ####[facility] ([id number])[address] [place] [address] Hematocrit (Bld) [Volume fraction] 40.1 % Normal 35-47 [facility] Comment on above: Performed By: #### C MP, CBCA ####[facility] ([id number])[address] [place] [address] Hemoglobin (Bld) [Mass/Vol] 13.6 g/dL Normal 11.7-15.5 [facility] Comment on above: Performed By: #### C DANIEL, CBCA ####[facility] ([id number])[address] [place] [address] Lymphocytes (Bld) [#/Vol] 2.7 10*3/uL Normal 1.0-3.5 [facility] Comment on above: Performed By: #### C MP, CBCA ####[facility] ([id number])[address] [place] [address] Lymphocytes/100 WBC (Bld) 37.3 % Normal [facility] Comment on above: Performed By: #### C MP, CBCA ####[facility] ([id number])[address] [place] [address] MCH (RBC) [Entitic mass] 29.0 pg Normal 27-34 [facility] Comment on above: Performed By: #### C MP, CBCA ####[facility] ([id number])[address], [place] [address] MCHC (RBC) [Mass/Vol] 33.8 g/dL Normal 32-36 [facility] Comment on above: Performed By: #### C MP, CBCA ####[facility] ([id number])[address], [place] [address] MCV (RBC) [Entitic vol] 86 fL Normal 80-100 [facility] Comment on above: Performed By: #### C MP, CBCA ####[facility] ([id number])[address], [place] [address] Monocytes (Bld) [#/Vol] 0.5 10*3/uL Normal 0-0.9 [facility] Comment on above: Performed By: #### C MP, CBCA ####[facility] ([id number])[address] [place] [address] Monocytes/100 WBC (Bld) 6.8 % Normal [facility] Comment on above: Performed By: #### C MP, CBCA ####[facility] ([id number])[address], [place] [address] Neutrophils/100 WBC (Bld) 55.0 % Normal [facility] Comment on above: Performed By: #### C MP, CBCA ####[facility] ([id number])[address], [place] [address] Platelet mean volume (Bld) [Entitic vol] 8.0 fL Normal 7-12 [facility] Comment on above: Performed By: #### C MP, CBCA ####[facility] ([id number])[address], [place] [address] Platelets (Bld) [#/Vol] 239 10*3/uL Normal 150-450 [facility] Comment on above: Performed By: #### C DANIEL CBCA ####[facility] ([id number])[address] [address] RBC COUNT 4.67 X10E12/L Normal 3.80-5.20 [facility] Comment on above: Performed By: #### C DANIEL, CBCA ####[facility] ([id number])[address] [address] [place] [address] WBC (Bld) [#/Vol] 7.3 10*3/uL Normal 4.0-11.0 [facility] Comment on above: Performed By: #### C DANIEL CBCA ####[facility] ([id number])[address] [address] COMPREHENSIVE METABOLIC PANE Basim 11-25-2023 Albumin [Mass/Vol] 4.4 g/dL Normal 3.2-5.3 [facility] Comment on above: Performed By: #### C DANIEL CBCA ####[facility] ([id number])[address] [address] ALP [Catalytic activity/Vol] 46 U/L Normal 39-130 [facility] Comment on above: Performed By: #### C DANIEL CBCA ####[facility] ([id number])[address] [place] [address], [place] [address] ALT [Catalytic activity/Vol] 5 U/L Normal 0-31 [facility] Comment on above: Performed By: #### C DANIEL CBCA ####[facility] ([id number])[address] [place] [address], [place] [address] Anion gap [Moles/Vol] 7 mmol/L Normal 5-15 [facility] Comment on above: Performed By: #### C MP CBCA ####[facility] ([id number])[address], [place] [address] AST [Catalytic activity/Vol] 15 U/L Normal 0-41 [facility] Comment on above: Performed By: #### C DANIEL CBCA ####[facility] ([id number])[address], [place] [address] Bilirubin [Mass/Vol] 0.7 mg/dL Normal 0.3-1.2 [facility] Comment on above: Performed By: #### C DANIEL CBCA ####[facility] ([id number])[address], [place] [address] Calcium [Mass/Vol] 9.5 mg/dL Normal 8.5-10.5 [facility] Comment on above: Performed By: #### C DANIEL CBCA ####[facility] ([id number])[address], [place] [address] Chloride [Moles/Vol] 108 mmol/L Normal 98-109 [facility] Comment on above: Performed By: #### C DANIEL CBCA ####[facility] ([id number])[address], [place] [address] CO2 [Moles/Vol] 28 mmol/L Normal 22-32 [facility] Comment on above: Performed By: #### C DANIEL CBCA ####[facility] ([id number])[address], [place] [address] Creatinine [Mass/Vol] 0.78 mg/dL Normal 0.40-1.00 [facility] Comment on above: Result Comment: METH OD TRACEABLE TO IDMS STANDARD Performed By: #### C DANIEL CBCA ####[facility] ([id number])[address], [address], [place] [address] eGFR (CKD-EPI) NON-RACE DEPENDENT >90 Normal >59 [facility] Comment on above: Result Comment: Reported eGFR is based on the CKD-EPI 2020 equation that does not use a race coefficient. Performed By: #### C LUIS ALFREDO SANCHEZA ####[facility] ([id number])[address], [address], [place] [address] Glucose [Mass/Vol] 102 mg/dL High 65-99 [facility] Comment on above: Performed By: #### C DANIEL CBCA ####[facility] ([id number])[address] [place] [address] Potassium [Moles/Vol] 4.1 mmol/L Normal 3.5-5.0 [facility] Comment on above: Performed By: #### C DANIEL CBCA ####[facility] ([id number])[address], [place] [address] Protein [Mass/Vol] 7.5 g/dL Normal 6.0-8.0 [facility] Comment on above: Performed By: #### C DANIEL CBCA ####[facility] ([id number])[address], [place] [address] Sodium [Moles/Vol] 143 mmol/L Normal 134-146 [facility] Comment on above: Performed By: #### C DANIEL CBCA ####[facility] ([id number])[address] [place] [address] Urea nitrogen [Mass/Vol] 11 mg/dL Normal 5-23 [facility] Comment on above: Performed By: #### C DANIEL CBCA ####[facility] ([id number])[address], [place] [address] DRUG SCREEN, URINEon 024 AMPHETAMINE/METHAMP Negative Normal NEG [facility] Comment on above: Result Comment: AMPH /METH screening cut off = 1000 ng/mL Performed By: #### D HIGGINS ####[facility] ([id number])[address], [address] [place] [address] BARBITURATES Negative Normal NEG [facility] Comment on above: Result Comment: Dominique iturates screening cut off value = 200 ng/mL Performed By: #### D HIGGINS ####[facility] ([id number])[address], [address] [place] [address] BENZODIAZEPINES Positive Abnormal NEG [facility] Comment on above: Result Comment: Conf irmation available upon request. Benzodiazepines screening cut off value = 200 ng/mL Performed By: #### D HIGGINS ####[facility] ([id number])[address], [address] [place] [address] CANNABINOIDS Positive Abnormal NEG [facility] Comment on above: Result Comment: Conf irmation available upon request. Cannabinoids/THC screening cut off value = 50 ng/mL Performed By: #### D HIGGINS ####[facility] ([id number])[address] [place] [address] COCAINE METABOLITE Negative Normal NEG [facility] Comment on above: Result Comment: Coca ine screening cut off value = 300 ng/mL Performed By: #### D HIGGINS ####[facility] ([id number])[address], [address] [place] [address] ECSTASY Negative Normal NEG [facility] Comment on above: Result Comment: Ecst asy screening cut off value = 500 ng/mL This report is intended for use in clinical monitoring or management of patients. Performed By: #### D HIGGINS ####[facility] ([id number])[address], [address] [place] [address] METHADONE Negative Normal NEG [facility] Comment on above: Result Comment: Meth adone screening cut off value = 300 ng/mL. Performed By: #### D HIGGINS ####[facility] ([id number])[address], [address] [place] [address] OPIATES Negative Normal NEG [facility] Comment on above: Result Comment: Opia mamta screening cut off value = 300 ng/mL NOTE: This test is used for the detection of codeine, hydrocodone (>1000 ng/mL), morphine and hydromorphone (>900 ng/mL) in urine. Performed By: #### D HIGGINS ####[facility] ([id number])[address], [address] [place] [address] OXYCODONE Negative Normal NEG [facility] Comment on above: Result Comment: Oxyc odone screening cut off value = 300 ng/mL NOTE: This test is used for the detection of oxycodone and oxymorphone in urine. Performed By: #### D HIGGINS ####[facility] ([id number])[address], [address] [place] [address] PHENCYCLIDINE Negative Normal NEG [facility] Comment on above: Result Comment: Phen cyclidine screening cut off value = 25 ng/mL Performed By: #### D HIGGINS ####[facility] ([id number])[address], [address] [place] [address] Glucose Glucometer (BldC) [M ass/Vol]on 11-25-2023 Glucose [Mass/Vol] 89 mg/dL Normal 65-99 [facility] Glucose [Mass/Vol] 86 mg/dL Normal 65-99 [facility] MAGNESIUMon 11-25-2023 Magnesium [Mass/Vol] 2.1 mg/dL Normal 1.8-2.6 [facility] Comment on above: Performed By: #### 3 968-5, 74508-0 ####[facility] ([id number])[address], [address] [place] [address] Phenytoin [Mass/Vol]on 11-24 DILANTIN 22.1 ug/mL High 10.0-20.0 [facility] Comment on above: Performed By: #### 3 968-5, 30264-1 #### [facility] ([id number]) [address], [address] [place] [address] cloBAZam and norclobazam roque joneson 11-25-2023 CLOBAZAM 62.2 ng/mL Normal 30-300 [facility] N-desmethylclobazam 232.0 ng/mL Low 300-3000 [facility] Comment on above: Result Comment: NOTE ADDITIONAL INFORMATION This test was developed and its performance characteristics determined by [facility] in a manner consistent with CLIA requirements. This test has not been cleared or approved by the U.S. Food and Drug Administration. Test Performed by: [facility] [place] [address] Boat Pilot: Daryn Hoskins M.D. Ph.D.; CLIA# [id number] lamoTRIgine [Mass/Vol]on Lamotrigine, S 4.5 mcg/mL Normal 3.0-15.0 [facility] Comment on above: Result Comment: NOTE ADDITIONAL INFORMATION This test was developed and its performance characteristics determined by [facility] in a manner consistent with CLIA requirements. This test has not been cleared or approved by the U.S. Food and Drug Administration. Test Performed by: [facility] [place] [address] Boat Pilot: Daryn Hoskins M.D. Ph.D.; CLIA# [id number] Performed By: #### 3 968-5, 49978-7 ####[facility] ([id number])[address], [address], [place] [address] Glucose Glucometer (BldC) [M ass/Vol]on 10-17-2023 Glucose [Mass/Vol] 78 mg/dL Normal 65-99 [facility] HCG ( test) Ql (U)o n 10-17-2023 Beta HCG ( test) Ql (U) Negative Normal NEG [facility] Comment on above: Performed By: #### 2 106-3 #### [facility] ([id number]) [address] [place] [address] Bacteria identified Cx Nom ( U)on 10-11-2023 Service comment (Unsp spec) [Interp] <10,000 ORGANISMS/ML NORMAL URO GENITAL ZANDER [facility] BASIC METABOLIC PANLon 10-09 Anion gap [Moles/Vol] 7 mmol/L Normal 5-15 [facility] Comment on above: Performed By: #### B MP #### [facility] ([id number]) [address] [place] [address] Calcium [Mass/Vol] 9.0 mg/dL Normal 8.5-10.5 [facility] Comment on above: Performed By: #### B MP #### [facility] ([id number]) [address] [place] [address] Chloride [Moles/Vol] 106 mmol/L Normal 98-109 [facility] Comment on above: Performed By: #### B MP #### [facility] ([id number]) [address] [place] [address] CO2 [Moles/Vol] 25 mmol/L Normal 22-32 [facility] Comment on above: Performed By: #### B MP #### [facility] ([id number]) [address] [place] [address] Creatinine [Mass/Vol] 0.81 mg/dL Normal 0.40-1.00 [facility] Comment on above: Result Comment: METH OD TRACEABLE TO IDMS STANDARD Performed By: #### B MP #### [facility] ([id number]) [address] [place] [address] eGFR (CKD-EPI) NON-RACE DEPENDENT >90 Normal >59 [facility] Comment on above: Result Comment: Reported eGFR is based on the CKD-EPI 2020 equation that does not use a race coefficient. Performed By: #### B MP #### [facility] ([id number]) [address] [place] [address] Glucose [Mass/Vol] 103 mg/dL High 65-99 [facility] Comment on above: Performed By: #### B MP #### [facility] ([id number]) [address] [place] [address] Potassium [Moles/Vol] 3.6 mmol/L Normal 3.5-5.0 [facility] Comment on above: Performed By: #### B MP #### [facility] ([id number]) [address] [place] [address] Sodium [Moles/Vol] 138 mmol/L Normal 134-146 [facility] Comment on above: Performed By: #### B MP #### [facility] ([id number]) [address] [place] [place] [address] Urea nitrogen [Mass/Vol] 12 mg/dL Normal 5-23 [facility] Comment on above: Performed By: #### B MP #### [facility] ([id number]) [address] [place] [address] Basic Metabolic Panelon 09-25 Anion gap [Moles/Vol] 7 mmol/L 5 - 15 mmol/L [facility] Calcium [Mass/Vol] 9.0 mg/dL 8.5 - 10. 5 mg/dL [facility] Chloride [Moles/Vol] 106 mmol/L 98 - 10 9 mmol/L [facility] CO2 [Moles/Vol] 25 mmol/L 22 - 32 mmol/L [facility] Creatinine [Mass/Vol] 0.81 mg/dL 0.40 - 1.00 mg/dL [facility] Comment on above: METHOD TRACEABLE TO IDOR STANDARD eGFR (CKD-EPI)non-race dependent - PINF [facility] Comment on above: Reported eGFR is based on the CKD-EPI 2021 equation that does not use a race coefficient. Glucose [Mass/Vol] 103 mg/dL High 65 - 99 mg/dL [facility] Interpretation and review of laboratory results Abnormal [facility] Potassium [Moles/Vol] 3.6 mmol/L 3.5 - 5.0 mmol/L [facility] Sodium [Moles/Vol] 138 mmol/L 134 - 146 mmol/L [facility] Urea nitrogen [Mass/Vol] 12 mg/dL 5 - 23 mg/dL [facility] URINALYSISon 10-10-2023 Bilirubin Ql (U) Negative Normal NEG [facility] BLOOD/HGB MODERATE Abnormal NEG [facility] CA OXALATE CRYSTALS PRESENT Abnormal NONE [facility] Color (U) YELLOW Normal YELLOW [facility] Glucose Ql (U) Negative Normal NEG [facility] Ketones Ql (U) Negative Normal NEG [facility] Leukocyte esterase Test strip Ql (U) Negative Normal NEG [facility] MUCOUS PRESENT Abnormal NONE [facility] Nitrite Ql (U) Negative Normal NEG [facility] pH (U) 7.0 [pH] Normal 5.0-8.5 [facility] Protein Ql (U) Trace Abnormal NEG [facility] R.B.CELLS 3 /hpf Normal 0-5 [facility] Specific gravity (U) [Rel density] 1.024 Normal 1.003-1.03 5 [facility] SQUAMOUS EPITHELIUM 8 /hpf High 0-5 [facility] TURBIDITY CLEAR Normal CLEAR [facility] Urobilinogen (U) [Mass/Vol] mg/dL Normal <1.1 [facility] W.B.CELLS 3 /hpf Normal 0-5 [facility] URINE CULTUREon 10-10-2023 Bacteria identified Cx Nom (U) CULTURE RESULTS <10,000 ORGANISMS/ML NORMAL URO GENITAL ZANDER Normal [facility] Comment on above: Performed By: #### 6 30-4 #### [facility] ([id number]) [address] [place] [address] Urinalysison 10-10-2023 Bilirubin Ql (U) Negative Negative^N egative [facility] Calcium oxalate crystals LM Ql (Urine sed) PRESENT Abnormal NONE^NONE [facility] Color (U) YELLOW YELLOW^YEL LOW [facility] Epithelial cells Auto (Urine sed) [#/Area] 8 High [facility] Glucose (U) [Mass/Vol] Negative Negat bruno^N egative mg/dL [facility] Hemoglobin Auto test strip Ql (U) MODERATE Abnormal Negative^N egative [facility] Interpretation and review of laboratory results Abnormal [facility] Ketones (U) [Mass/Vol] Negative Negat bruno^N egative mg/dL [facility] Leukocyte esterase Auto test strip Ql (U) Negative Negative^N egative [facility] Mucus Ql (Urine sed) PRESENT Abnormal NONE^NONE [facility] Nitrite Auto test strip Ql (U) Negative Negative^N egative [facility] pH (U) 7.0 [pH] 5.0 - 8.5 [facility] Protein (U) [Mass/Vol] Trace Abnormal Negat bruno^N egative mg/dL [facility] RBC Auto (Urine sed) [#/Area] 3 [facility] Specific gravity Refractometry automated (U) [Rel density] 1.024 1.003 - 1.035 [facility] Turbidity Ql (U) CLEAR CLEAR^JOSE R [facility] Urobilinogen Qn (U) NINF [facility] WBC Auto (Urine sed) [#/Area] 3 [facility] XR LUMBAR SPINE AP, LATERAL, FLEXION AND [...] Strange MD on 09/20/2023 11:39 AM Normal [facility] POCT , urineon 08-26 Beta HCG ( test) Ql (U) Negative [facility] POCT , urineon 08-25 Beta HCG ( test) Ql (U) Negative [facility] 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 Passed Yes [facility] Interpretation and review of laboratory results Normal [facility] POCT Urinalysis Auto Onlyon 09-07-2023 External Poct Urine Blood Trace [facility] External Poct Urine Glucose Negative [facility] External Poct Urine Ketones Negative [facility] External Poct Urine Leukocyte Esterase Negative [facility] External Poct Urine Nitrite Negative [facility] External Poct Urine Ph 7.0 Pr [facility] External Poct Urine Protein Negative [facility] Interpretation and review of laboratory results Abnormal [facility] URINE CULTUREon 09-07-2023 Bacteria identified Cx Nom (U) SPECIMEN NOTES URINE RECEIVED WITHOUT PRESERVATIVE CULTURE RESULTS <10,000 ORGANISMS/ML NORMAL URO GENITAL ZANDER Normal [facility] Comment on above: Performed By: #### 6 30-4 #### [facility] ([id number]) [address], [address] [place] [address] BASIC METABOLIC PANLon 08-25 Anion gap [Moles/Vol] 7 mmol/L Normal 5-15 [facility] Comment on above: Performed By: #### C BCA, BMP #### [facility] ([id number]) [address], [address] [place] [address] Calcium [Mass/Vol] 8.5 mg/dL Normal 8.5-10.5 [facility] Comment on above: Performed By: #### C BCA, BMP #### [facility] ([id number]) [address], [address] [place] [address] Chloride [Moles/Vol] 107 mmol/L Normal 98-109 [facility] Comment on above: Performed By: #### C SLAVA, BMP #### [facility] ([id number]) [address], [address] [place] [address] CO2 [Moles/Vol] 27 mmol/L Normal 22-32 [facility] Comment on above: Performed By: #### C SLAVA, BMP #### [facility] ([id number]) [address] [place] [address] Creatinine [Mass/Vol] 0.73 mg/dL Normal 0.40-1.00 [facility] Comment on above: Result Comment: METH OD TRACEABLE TO IDMS STANDARD Performed By: #### C SLAVA, BMP #### [facility] ([id number]) [address] [address] eGFR (CKD-EPI) NON-RACE DEPENDENT >90 Normal >59 [facility] Comment on above: Result Comment: Reported eGFR is based on the CKD-EPI 2020 equation that does not use a race coefficient. Performed By: #### C SLAVA, BMP #### [facility] ([id number]) [address] [place] [address] Glucose [Mass/Vol] 79 mg/dL Normal 65-99 [facility] Comment on above: Performed By: #### C SLAVA, BMP #### [facility] ([id number]) [address] [place] [address] Potassium [Moles/Vol] 3.3 mmol/L Low 3.5-5.0 [facility] Comment on above: Performed By: #### C SLAVA, BMP #### [facility] ([id number]) [address], [address] [place] [address] Sodium [Moles/Vol] 141 mmol/L Normal 134-146 [facility] Comment on above: Performed By: #### C SLAVA, BMP #### [facility] ([id number]) [address], [address] [place] [address] Urea nitrogen [Mass/Vol] 8 mg/dL Normal 5-23 [facility] Comment on above: Performed By: #### C SLAVA, BMP #### [facility] ([id number]) [address], [address] [place] [address] CBC AND AUTO DIFFon 08-26-19 24 ABSOLUTE BASOPHIL 0.0 X10E9/L Normal 0.0-0.2 [facility] Comment on above: Performed By: #### C SLAVA, BMP #### [facility] ([id number]) [address] [place] [address] ABSOLUTE NEUTROPHIL 2.7 X10E9/L Normal 1.5-6.6 [facility] Comment on above: Performed By: #### C SLAVA, BMP #### [facility] ([id number]) [address] [place] [address] Basophils/100 WBC (Bld) 0.6 % Normal [facility] Comment on above: Performed By: #### C SLAVA, BMP #### [facility] ([id number]) [address] [place] [address] Eosinophils (Bld) [#/Vol] 0.1 10*3/uL Normal 0.0-0.4 [facility] Comment on above: Performed By: #### C SLAVA, BMP #### [facility] ([id number]) [address], [address] [place] [address] Eosinophils/100 WBC (Bld) 2.3 % Normal [facility] Comment on above: Performed By: #### C SLAVA, BMP #### [facility] ([id number]) [address], [address] [place] [address] Erythrocyte distribution width (RBC) [Ratio] 13.9 % Normal 11.5-15.0 [facility] Comment on above: Performed By: #### C SLAVA, BMP #### [facility] ([id number]) [address] [place] [address] Hematocrit (Bld) [Volume fraction] 33.1 % Low 35-47 [facility] Comment on above: Performed By: #### C BCA, BMP #### [facility] ([id number]) [address], [address] [place] [address] Hemoglobin (Bld) [Mass/Vol] 11.1 g/dL Low 11.7-15.5 [facility] Comment on above: Performed By: #### C BCA, BMP #### [facility] ([id number]) [address], [address] [place] [address] Lymphocytes (Bld) [#/Vol] 2.0 10*3/uL Normal 1.0-3.5 [facility] Comment on above: Performed By: #### C SLAVA, BMP #### [facility] ([id number]) [address] [place] [address] Lymphocytes/100 WBC (Bld) 36.7 % Normal [facility] Comment on above: Performed By: #### C BCA, BMP #### [facility] ([id number]) [address] [place] [address] MCH (RBC) [Entitic mass] 28.7 pg Normal 27-34 [facility] Comment on above: Performed By: #### C BCA, BMP #### [facility] ([id number]) [address], [address] [place] [address] MCHC (RBC) [Mass/Vol] 33.4 g/dL Normal 32-36 [facility] Comment on above: Performed By: #### C BCA, BMP #### [facility] ([id number]) [address], [address] [place] [address] MCV (RBC) [Entitic vol] 86 fL Normal 80-100 [facility] Comment on above: Performed By: #### C SLAVA, BMP #### [facility] ([id number]) [address], [address] [place] [address] Monocytes (Bld) [#/Vol] 0.6 10*3/uL Normal 0-0.9 [facility] Comment on above: Performed By: #### C SLAVA, BMP #### [facility] ([id number]) [address] [place] [address] Monocytes/100 WBC (Bld) 10.4 % Normal [facility] Comment on above: Performed By: #### C SLAVA, BMP #### [facility] ([id number]) [address] [place] [address] Neutrophils/100 WBC (Bld) 50.0 % Normal [facility] Comment on above: Performed By: #### C SLAVA, BMP #### [facility] ([id number]) [address], [address] [place] [address] Platelet mean volume (Bld) [Entitic vol] 8.1 fL Normal 7-12 [facility] Comment on above: Performed By: #### C SLAVA, BMP #### [facility] ([id number]) [address] [place] [address] Platelets (Bld) [#/Vol] 184 10*3/uL Normal 150-450 [facility] Comment on above: Performed By: #### C SLAVA, BMP #### [facility] ([id number]) [address] [place] [address] RBC COUNT 3.86 X10E12/L Normal 3.80-5.20 [facility] Comment on above: Performed By: #### C BCA, BMP #### [facility] ([id number]) [address] [place] [address] WBC (Bld) [#/Vol] 5.4 10*3/uL Normal 4.0-11.0 [facility] Comment on above: Performed By: #### C BCA, BMP #### [facility] ([id number]) [address] [place] [address] Glucose Glucometer (BldC) [M ass/Vol]on 08-26-2023 Glucose [Mass/Vol] 108 mg/dL High 65-99 [facility] Glucose [Mass/Vol] 80 mg/dL Normal 65-99 [facility] Glucose [Mass/Vol] 83 mg/dL Normal 65-99 [facility] Alanine aminotransferase [En zymatic activity/volume] in Serum or PlasmaOrdered By: Som Fiore on 05-12-2023 ALT [Catalytic activity/Vol] 8 U/L 7-52 [facility] Albumin [Mass/volume] in Ser um or Plasma by Bromocresol green (BCG) dye binding methoOrdered By: Som Fiore on 05-12-2023 Albumin BCG dye [Mass/Vol] 4.6 g/dL 3.5-5.7 [facility] Alkaline phosphatase [Enzyma tic activity/volume] in Serum or PlasmaOrdered By: Som Fiore on 05-12-2023 ALP [Catalytic activity/Vol] 56 U/L 34-104 [facility] Aspartate aminotransferase [ Enzymatic activity/volume] in Serum or PlasmaOrdered By: Som Fiore on 05-12-2023 AST [Catalytic activity/Vol] 14 U/L 13-39 [facility] Automated erythrocytes count in urine sediment (number/area)Ordered By: Som Fiore on 05-12-2023 RBC Auto (Urine sed) [#/Area] 5-9 [HPF] 0-4 [facility] Automated leukocytes count i n urine sediment (number/area)Ordered By: Som Fiore on 05-12-2023 WBC Auto (Urine sed) [#/Area] 5-9 [HPF] 0-4 [facility] Basophils Auto (Bld) [#/Vol] Ordered By: Som Fiore on 05-12-2023 Basophils (Bld) [#/Vol] 0.0 10*3/uL 0.0-0.2 [facility] Basophils/100 WBC Auto (Bld) Ordered By: Som Fiore on 05-12-2023 Basophils/100 WBC (Bld) 0.5 % . [facility] Bilirubin Test strip Ql (U)O rdered By: Som Fiore on 05-12-2023 Bilirubin Ql (U) Negative Negative [facility] Bilirubin.total [Mass/volume ] in Serum or PlasmaOrdered By: Som Fiore on 05-12-2023 Bilirubin [Mass/Vol] 0.4 mg/dL 0.3-1.0 [facility] Calcium [Mass/volume] in Ser um or PlasmaOrdered By: Som Fiore on 05-12-2023 Calcium [Mass/Vol] 9.4 mg/dL 8.6-10.3 [facility] Carbon dioxide, total [Moles /volume] in Serum or PlasmaOrdered By: Som Fiore on 05-12-2023 CO2 [Moles/Vol] 28.5 mmol/L 21.0-31.0 [facility] Chloride [Moles/volume] in S alexis or PlasmaOrdered By: Som Fiore on 05-12-2023 Chloride [Moles/Vol] 105 mmol/L 98-107 [facility] Color Auto (U)Ordered By: Giovanni Fiore on 05-12-2023 Color (U) Yellow Yellow [facility] Creatinine [Mass/volume] in Serum or PlasmaOrdered By: Som Fiore on 05-12-2023 Creatinine [Mass/Vol] 0.85 mg/dL 0.60-1.20 [facility] Eosinophils Auto (Bld) [#/Vo l]Ordered By: Som Fiore on 05-12-2023 Eosinophils (Bld) [#/Vol] 0.0 10*3/uL 0.0-0.45 [facility] Eosinophils/100 WBC Auto (Bl d)Ordered By: Som Fiore on 05-12-2023 Eosinophils/100 WBC (Bld) 0.5 % . [facility] Erythrocyte distribution wid th Auto (RBC) [Ratio]Ordered By: Som Fiore on 05-12-2023 Erythrocyte distribution width (RBC) [Ratio] 14.2 % 11.9-15.3 [facility] Globulin Calc (S) [Mass/Vol] Ordered By: Som Fiore on 05-12-2023 Globulin (S) [Mass/Vol] 3.1 g/dL [facility] Glucose [Mass/volume] in Ser um or PlasmaOrdered By: Som Fiore on 05-12-2023 Glucose [Mass/Vol] 95 mg/dL 70-100 [facility] Comment on above: ADA recommended refe rence rangeRandom Glucose Reference Range is dependent on time and content of last meal. Glucose of more than 200 mg/dL in a nonstressed, ambulatory subject supports the diagnosis of Diabetes Mellitus. HCG ( test) IA.rapi d Ql (U)Ordered By: Som Fiore on 05-12-2023 HCG ( test) Ql (U) Negative [facility] Hematocrit Auto (Bld) [Volum e fraction]Ordered By: Som Fiore on 05-12-2023 Hematocrit (Bld) [Volume fraction] 38.0 % 34.0-46.4 [facility] Hemoglobin [Mass/volume] in BloodOrdered By: Som Fiore on 05-12-2023 Hemoglobin (Bld) [Mass/Vol] 12.8 g/dL 11.8-15.4 [facility] Ketones Auto test strip (U) [Mass/Vol]Ordered By: Som Fiore on 05-12-2023 Ketones (U) [Mass/Vol] Trace Negative [facility] - UrinalysisOrder ed By: Som Fiore on 05-12-2023 Hyaline casts LM Ql (Urine sed) 0-8 [LPF] 0-8 [facility] Leukocytes [#/volume] correc manjula for nucleated erythrocytes in Blood by Automated counOrdered By: Som Fiore on 05-12-2023 WBC corrected for nucl RBC Auto (Bld) [#/Vol] 9.1 10*3/uL 3.8-11.6 [facility] Lymphocytes Auto (Bld) [#/Vo l]Ordered By: Som Fiore on 05-12-2023 Lymphocytes (Bld) [#/Vol] 3.2 10*3/uL 1.00-4.8 [facility] Lymphocytes/100 WBC Auto (Bl d)Ordered By: Som Fiore on 05-12-2023 Lymphocytes/100 WBC (Bld) 35.0 % . [facility] MCH Auto (RBC) [Entitic mass ]Ordered By: Som Fiore on 05-12-2023 MCH (RBC) [Entitic mass] 28.4 pg 24.7-34.3 [facility] MCHC Auto (RBC) [Mass/Vol]Or dered By: Som Fiore on 05-12-2023 MCHC (RBC) [Mass/Vol] 33.7 g/dL 32.0-35.0 [facility] MCV Auto (RBC) [Entitic vol] Ordered By: Som Fiore on 05-12-2023 MCV (RBC) [Entitic vol] 84.2 fL 80-100 [facility] Monocyte distribution width [Entitic volume] in Blood by AutomatedOrdered By: Som Fiore on 05-12-2023 Monocyte distribution width Auto (Bld) [Entitic vol] 19.05 % 0.00-20.00 [facility] Monocytes Auto (Bld) [#/Vol] Ordered By: Som Fiore on 05-12-2023 Monocytes (Bld) [#/Vol] 0.5 10*3/uL 0.0-0.8 [facility] Monocytes/100 WBC Auto (Bld) Ordered By: Som Fiore on 05-12-2023 Monocytes/100 WBC (Bld) 5.1 % . [facility] Neutrophils Auto (Bld) [#/Vo l]Ordered By: Som Fiore on 05-12-2023 Neutrophils (Bld) [#/Vol] 5.4 10*3/uL 1.8-7.7 [facility] Neutrophils/100 WBC Auto (Bl d)Ordered By: Som Fiore on 05-12-2023 Neutrophils/100 WBC (Bld) 58.9 % . [facility] Nitrite Test strip Ql (U)Ord ered By: Som Fiore on 05-12-2023 Nitrite Ql (U) Negative Negative [facility] No Panel InformationOrdered By: Som Fiore on 05-12-2023 Estimated GFR (CKD-EPI) > 60.0 mL/Min [facility] Creatinine Clearance (Chem 79.00 [facility] Nucleated erythrocytes [Pres ence] in Blood by Automated countOrdered By: Som Fiore on 05-12-2023 Nucleated RBC Auto Ql (Bld) 0.1 /100{WBC} 0-0.5 [facility] Platelet mean volume Auto (B ld) [Entitic vol]Ordered By: Som Fiore on 05-12-2023 Platelet mean volume (Bld) [Entitic vol] 7.6 fL 6.3-10.7 [facility] Platelets Auto (Bld) [#/Vol] Ordered By: Som Fiore on 05-12-2023 Platelets (Bld) [#/Vol] 280 10*3/uL 150-450 [facility] Potassium [Moles/volume] in Serum or PlasmaOrdered By: Som Fiore on 05-12-2023 Potassium [Moles/Vol] 4.0 mmol/L 3.5-5.1 [facility] Protein Auto test strip (U) [Mass/Vol]Ordered By: Som Fiore on 05-12-2023 Protein (U) [Mass/Vol] Negative Negative [facility] Protein [Mass/volume] in Ser um or PlasmaOrdered By: Som Fiore on 05-12-2023 Protein [Mass/Vol] 7.7 g/dL 6.4-8.9 [facility] RBC Auto (Bld) [#/Vol]Ordere d By: Som Fiore on 05-12-2023 RBC (Bld) [#/Vol] 4.51 10*6/uL 3.60-5.00 [facility] Serum or plasma albumin/glob ulin mass ratioOrdered By: Som Fiore on 05-12-2023 Albumin/Globulin [Mass ratio] 1.5 {ratio} [facility] Serum or plasma anion gap de terminationOrdered By: Som Fiore on 05-12-2023 Anion gap [Moles/Vol] TNP [facility] Comment on above: Test not performed Sodium [Moles/volume] in Ser um or PlasmaOrdered By: Som Fiore on 05-12-2023 Sodium [Moles/Vol] 140 mmol/L 136-145 [facility] Specific gravity Auto test s trip (U) [Rel density]Ordered By: Som Fiore on 05-12-2023 Specific gravity (U) [Rel density] 1.022 1.001-1.03 0 [facility] Squamous epithelial cells de tection in urine sediment by light microscopyOrdered By: Som Fiore on 05-12-2023 Epithelial cells.squamous LM Ql (Urine sed) 5-9 [HPF] 0-2 [facility] Urea nitrogen [Mass/volume] in Serum or PlasmaOrdered By: Som Fiore on 05-12-2023 Urea nitrogen [Mass/Vol] 11 mg/dL 7-25 [facility] Urine bacteria detection by automated methodOrdered By: Som Fiore on 05-12-2023 Bacteria Auto Ql (U) 1+ None Seen [facility] Urine clarity by refractomet ry automatedOrdered By: Som Fiore on 05-12-2023 Clarity Refractometry automated (U) Cloudy Clear [facility] Urine glucose measurement by automated test strip (mass/volume)Ordered By: Som Fiore on 05-12-2023 Glucose Auto test strip (U) [Mass/Vol] Normal mg/dL Normal [facility] Urine hemoglobin detection b y automated test stripOrdered By: Som Fiore on 05-12-2023 Hemoglobin Auto test strip Ql (U) Trace Negative [facility] Urine leukocyte esterase det ection by automated test stripOrdered By: Som Fiore on 05-12-2023 Leukocyte esterase Auto test strip Ql (U) Negative Negative [facility] Urobilinogen Auto test strip (U) [Mass/Vol]Ordered By: Som Fiore on 05-12-2023 Urobilinogen (U) [Mass/Vol] Normal mg/dL Normal [facility] WBC Auto (Bld) [#/Vol]Ordere d By: Som Fiore on 05-12-2023 WBC (Bld) [#/Vol] 9.1 10*3/uL 3.8-11.6 [facility] pH Auto test strip (U)Ordere d By: Som Fiore on 05-12-2023 pH (U) 7.0 [pH] 5.0-9.0 [facility] Alanine aminotransferase [En zymatic activity/volume] in Serum or PlasmaOrdered By: Pipe Jose on 04-12-2023 ALT [Catalytic activity/Vol] 8 U/L 7-52 [facility] Albumin [Mass/volume] in Ser um or Plasma by Bromocresol green (BCG) dye binding methoOrdered By: Pipe Jose on 04-12-2023 Albumin BCG dye [Mass/Vol] 4.9 g/dL 3.5-5.7 [facility] Alkaline phosphatase [Enzyma tic activity/volume] in Serum or PlasmaOrdered By: Pipe Jose on 04-12-2023 ALP [Catalytic activity/Vol] 69 U/L 34-104 [facility] Aspartate aminotransferase [ Enzymatic activity/volume] in Serum or PlasmaOrdered By: Pipe Jose on 04-12-2023 AST [Catalytic activity/Vol] 18 U/L 13-39 [facility] Basophils Auto (Bld) [#/Vol] Ordered By: Pipe Jose on 04-12-2023 Basophils (Bld) [#/Vol] 0.0 10*3/uL 0.0-0.2 [facility] Basophils/100 WBC Auto (Bld) Ordered By: Pipe Jose on 04-12-2023 Basophils/100 WBC (Bld) 0.4 % . [facility] Bilirubin.total [Mass/volume ] in Serum or PlasmaOrdered By: Pipe Jose on 04-12-2023 Bilirubin [Mass/Vol] 0.3 mg/dL 0.3-1.0 [facility] Calcium [Mass/volume] in Ser um or PlasmaOrdered By: Pipe Jose on 04-12-2023 Calcium [Mass/Vol] 9.9 mg/dL 8.6-10.3 [facility] Carbon dioxide, total [Moles /volume] in Serum or PlasmaOrdered By: Pipe Jose on 04-12-2023 CO2 [Moles/Vol] 27.5 mmol/L 21.0-31.0 [facility] Chloride [Moles/volume] in S alexis or PlasmaOrdered By: Pipe Jose on 04-12-2023 Chloride [Moles/Vol] 104 mmol/L 98-107 [facility] Creatinine [Mass/volume] in Serum or PlasmaOrdered By: Pipe Jose on 04-12-2023 Creatinine [Mass/Vol] 0.91 mg/dL 0.60-1.20 [facility] Eosinophils Auto (Bld) [#/Vo l]Ordered By: Pipe Jose on 04-12-2023 Eosinophils (Bld) [#/Vol] 0.0 10*3/uL 0.0-0.45 [facility] Eosinophils/100 WBC Auto (Bl d)Ordered By: Pipe Jose on 04-12-2023 Eosinophils/100 WBC (Bld) 0.5 % . [facility] Erythrocyte distribution wid th Auto (RBC) [Ratio]Ordered By: Pipe Jose on 04-12-2023 Erythrocyte distribution width (RBC) [Ratio] 14.8 % 11.9-15.3 [facility] Globulin Calc (S) [Mass/Vol] Ordered By: Pipe Jose on 04-12-2023 Globulin (S) [Mass/Vol] 3.5 g/dL [facility] Glucose [Mass/volume] in Ser um or PlasmaOrdered By: Pipe Jose on 04-12-2023 Glucose [Mass/Vol] 92 mg/dL 70-100 [facility] Comment on above: ADA recommended refe rence rangeRandom Glucose Reference Range is dependent on time and content of last meal. Glucose of more than 200 mg/dL in a nonstressed, ambulatory subject supports the diagnosis of Diabetes Mellitus. Hematocrit Auto (Bld) [Volum e fraction]Ordered By: Pipe Jose on 04-12-2023 Hematocrit (Bld) [Volume fraction] 40.6 % 34.0-46.4 [facility] Hemoglobin [Mass/volume] in BloodOrdered By: Pipe Jose on 04-12-2023 Hemoglobin (Bld) [Mass/Vol] 13.5 g/dL 11.8-15.4 [facility] Leukocytes [#/volume] correc manjula for nucleated erythrocytes in Blood by Automated counOrdered By: Pipe Jose on 04-12-2023 WBC corrected for nucl RBC Auto (Bld) [#/Vol] 9.7 10*3/uL 3.8-11.6 [facility] Lymphocytes Auto (Bld) [#/Vo l]Ordered By: Pipe Jose on 04-12-2023 Lymphocytes (Bld) [#/Vol] 2.5 10*3/uL 1.00-4.8 [facility] Lymphocytes/100 WBC Auto (Bl d)Ordered By: Pipe Jose on 04-12-2023 Lymphocytes/100 WBC (Bld) 25.4 % . [facility] MCH Auto (RBC) [Entitic mass ]Ordered By: Pipe Jose on 04-12-2023 MCH (RBC) [Entitic mass] 28.2 pg 24.7-34.3 [facility] MCHC Auto (RBC) [Mass/Vol]Or dered By: Pipe Jose on 04-12-2023 MCHC (RBC) [Mass/Vol] 33.3 g/dL 32.0-35.0 [facility] MCV Auto (RBC) [Entitic vol] Ordered By: Pipe Jose on 04-12-2023 MCV (RBC) [Entitic vol] 84.9 fL 80-100 [facility] Monocyte distribution width [Entitic volume] in Blood by AutomatedOrdered By: Pipe Jose on 04-12-2023 Monocyte distribution width Auto (Bld) [Entitic vol] 15.89 % 0.00-20.00 [facility] Monocytes Auto (Bld) [#/Vol] Ordered By: Pipe Jose on 04-12-2023 Monocytes (Bld) [#/Vol] 0.5 10*3/uL 0.0-0.8 [facility] Monocytes/100 WBC Auto (Bld) Ordered By: Pipe Jose on 04-12-2023 Monocytes/100 WBC (Bld) 5.6 % . [facility] Neutrophils Auto (Bld) [#/Vo l]Ordered By: Pipe Jose on 04-12-2023 Neutrophils (Bld) [#/Vol] 6.6 10*3/uL 1.8-7.7 [facility] Neutrophils/100 WBC Auto (Bl d)Ordered By: Pipe Jose on 04-12-2023 Neutrophils/100 WBC (Bld) 68.1 % . [facility] No Panel InformationOrdered By: Pipe Jose on 04-12-2023 Estimated GFR (CKD-EPI) > 60.0 mL/Min [facility] Creatinine Clearance (Chem 73.79 [facility] Nucleated erythrocytes [Pres ence] in Blood by Automated countOrdered By: Pipe Jose on 04-12-2023 Nucleated RBC Auto Ql (Bld) 0.1 /100{WBC} 0-0.5 [facility] Platelet mean volume Auto (B ld) [Entitic vol]Ordered By: Pipe Jose on 04-12-2023 Platelet mean volume (Bld) [Entitic vol] 7.7 fL 6.3-10.7 [facility] Platelets Auto (Bld) [#/Vol] Ordered By: Pipe Jose on 04-12-2023 Platelets (Bld) [#/Vol] 307 10*3/uL 150-450 [facility] Potassium [Moles/volume] in Serum or PlasmaOrdered By: Pipe Jose on 04-12-2023 Potassium [Moles/Vol] 4.1 mmol/L 3.5-5.1 [facility] Protein [Mass/volume] in Ser um or PlasmaOrdered By: Pipe Jose on 04-12-2023 Protein [Mass/Vol] 8.4 g/dL 6.4-8.9 [facility] RBC Auto (Bld) [#/Vol]Ordere d By: Pipe Jose on 04-12-2023 RBC (Bld) [#/Vol] 4.78 10*6/uL 3.60-5.00 [facility] Serum or plasma albumin/glob ulin mass ratioOrdered By: Pipe Jose on 04-12-2023 Albumin/Globulin [Mass ratio] 1.4 {ratio} [facility] Serum or plasma anion gap de terminationOrdered By: Pipe Jose on 04-12-2023 Anion gap [Moles/Vol] 13.6 mmol/L 6.0-15.0 [facility] Sodium [Moles/volume] in Ser um or PlasmaOrdered By: Pipe Jose on 04-12-2023 Sodium [Moles/Vol] 141 mmol/L 136-145 [facility] Urea nitrogen [Mass/volume] in Serum or PlasmaOrdered By: Pipe Jose on 04-12-2023 Urea nitrogen [Mass/Vol] 9 mg/dL 7-25 [facility] WBC Auto (Bld) [#/Vol]Ordere d By: Pipe Jose on 04-12-2023 WBC (Bld) [#/Vol] 9.7 10*3/uL 3.8-11.6 [facility] Alanine aminotransferase [En zymatic activity/volume] in Serum or PlasmaOrdered By: Milton Rivera on 03-23-2023 ALT [Catalytic activity/Vol] 8 U/L 7-52 [facility] Albumin [Mass/volume] in Ser um or Plasma by Bromocresol green (BCG) dye binding methoOrdered By: Milton Rivera on 03-23-2023 Albumin BCG dye [Mass/Vol] 4.9 g/dL 3.5-5.7 [facility] Alkaline phosphatase [Enzyma tic activity/volume] in Serum or PlasmaOrdered By: Milton Rivera on 03-23-2023 ALP [Catalytic activity/Vol] 59 U/L 34-104 [facility] Aspartate aminotransferase [ Enzymatic activity/volume] in Serum or PlasmaOrdered By: Milton Rivera on 03-23-2023 AST [Catalytic activity/Vol] 20 U/L 13-39 [facility] Basophils Auto (Bld) [#/Vol] Ordered By: Milton Rivera on 03-23-2023 Basophils (Bld) [#/Vol] 0.0 10*3/uL 0.0-0.2 [facility] Basophils/100 WBC Auto (Bld) Ordered By: Milton Rivera on 03-23-2023 Basophils/100 WBC (Bld) 0.5 % . [facility] Bilirubin.total [Mass/volume ] in Serum or PlasmaOrdered By: Milton Rivera on 03-23-2023 Bilirubin [Mass/Vol] 0.4 mg/dL 0.3-1.0 [facility] Calcium [Mass/volume] in Ser um or PlasmaOrdered By: Milton Rivera on 03-23-2023 Calcium [Mass/Vol] 9.6 mg/dL 8.6-10.3 [facility] Carbon dioxide, total [Moles /volume] in Serum or PlasmaOrdered By: Milton Rivera on 03-23-2023 CO2 [Moles/Vol] 21.8 mmol/L 21.0-31.0 [facility] Chloride [Moles/volume] in S alexis or PlasmaOrdered By: Milton Rivera on 03-23-2023 Chloride [Moles/Vol] 105 mmol/L 98-107 [facility] Creatine kinase [Enzymatic a ctivity/volume] in Serum or PlasmaOrdered By: Milton Rivera on 03-23-2023 CK [Catalytic activity/Vol] 45 U/L 30-223 [facility] Creatinine [Mass/volume] in Serum or PlasmaOrdered By: Milton Rivera on 03-23-2023 Creatinine [Mass/Vol] 0.79 mg/dL 0.60-1.20 [facility] Eosinophils Auto (Bld) [#/Vo l]Ordered By: Milton Rivera on 03-23-2023 Eosinophils (Bld) [#/Vol] 0.0 10*3/uL 0.0-0.45 [facility] Eosinophils/100 WBC Auto (Bl d)Ordered By: Milton Rivera on 03-23-2023 Eosinophils/100 WBC (Bld) 0.4 % . [facility] Erythrocyte distribution wid th Auto (RBC) [Ratio]Ordered By: Milton Rivera on 03-23-2023 Erythrocyte distribution width (RBC) [Ratio] 15.2 % 11.9-15.3 [facility] Globulin Calc (S) [Mass/Vol] Ordered By: Milton Rivera on 03-23-2023 Globulin (S) [Mass/Vol] 3.2 g/dL [facility] Glucose Glucometer (BldC) [M ass/Vol]Ordered By: CRISTIANE TEMKrystian on 03-23-2023 Glucose [Mass/Vol] 88 mg/dL [facility] Comment on above: Random Glucose Refer ence Range is dependent on time and content of last meal. Glucose of more than 200 mg/dL in a nonstressed, ambulatory subject supports the diagnosis of Diabetes Mellitus. Glucose [Mass/volume] in Ser um or PlasmaOrdered By: Milton Rivera on 03-23-2023 Glucose [Mass/Vol] 81 mg/dL 70-100 [facility] Comment on above: ADA recommended refe rence rangeRandom Glucose Reference Range is dependent on time and content of last meal. Glucose of more than 200 mg/dL in a nonstressed, ambulatory subject supports the diagnosis of Diabetes Mellitus. Hematocrit Auto (Bld) [Volum e fraction]Ordered By: Milton Rivera on 03-23-2023 Hematocrit (Bld) [Volume fraction] 41.0 % 34.0-46.4 [facility] Hemoglobin [Mass/volume] in BloodOrdered By: Milton Rivera on 03-23-2023 Hemoglobin (Bld) [Mass/Vol] 13.8 g/dL 11.8-15.4 [facility] Lactate [Moles/volume] in Se rum or PlasmaOrdered By: Milton Rivera on 03-23-2023 Lactate [Moles/Vol] 0.8 mmol/L 0.5-2.2 [facility] Leukocytes [#/volume] correc manjula for nucleated erythrocytes in Blood by Automated counOrdered By: Milton Rivera on 03-23-2023 WBC corrected for nucl RBC Auto (Bld) [#/Vol] 8.9 10*3/uL 3.8-11.6 [facility] Lymphocytes Auto (Bld) [#/Vo l]Ordered By: Milton Rivera on 03-23-2023 Lymphocytes (Bld) [#/Vol] 3.3 10*3/uL 1.00-4.8 [facility] Lymphocytes/100 WBC Auto (Bl d)Ordered By: Milton Rivera on 03-23-2023 Lymphocytes/100 WBC (Bld) 37.2 % . [facility] MCH Auto (RBC) [Entitic mass ]Ordered By: Milton Rivera on 03-23-2023 MCH (RBC) [Entitic mass] 28.8 pg 24.7-34.3 [facility] MCHC Auto (RBC) [Mass/Vol]Or dered By: Milton Rivera on 03-23-2023 MCHC (RBC) [Mass/Vol] 33.5 g/dL 32.0-35.0 [facility] MCV Auto (RBC) [Entitic vol] Ordered By: Milton Rivera on 03-23-2023 MCV (RBC) [Entitic vol] 85.9 fL 80-100 [facility] Monocyte distribution width [Entitic volume] in Blood by AutomatedOrdered By: Milton Rivera on 03-23-2023 Monocyte distribution width Auto (Bld) [Entitic vol] 21.12 % 0.00-20.00 [facility] Comment on above: For adults in ED, MD W > 20.0 may be associated with a higher risk of sepsis during the first 12 hrs of hospital admission Monocytes Auto (Bld) [#/Vol] Ordered By: Milton Rivera on 03-23-2023 Monocytes (Bld) [#/Vol] 0.6 10*3/uL 0.0-0.8 [facility] Monocytes/100 WBC Auto (Bld) Ordered By: Milton Rivera on 03-23-2023 Monocytes/100 WBC (Bld) 6.9 % . [facility] Neutrophils Auto (Bld) [#/Vo l]Ordered By: Milton Rivera on 03-23-2023 Neutrophils (Bld) [#/Vol] 4.9 10*3/uL 1.8-7.7 [facility] Neutrophils/100 WBC Auto (Bl d)Ordered By: Milton Rivera on 03-23-2023 Neutrophils/100 WBC (Bld) 55.0 % . [facility] No Panel InformationOrdered By: Margarita Gallo on 03-23-2023 Lamotrigine (Lamictal) Level 2.0 ug/mL 2.0-20.0 [facility] Comment on above: Detection Limit = 1. 0Performed at: [facility] - [facility] [address] [id number] Director: Sina Hills MD, Phone: [phone] Levetiracetam (Keppra) Level 15.5 ug/mL 10.0-40.0 [facility] Comment on above: Performed at: [facility] [address] [id number] Director: Sina Hills MD, Phone: [phone] No Panel InformationOrdered By: PROVIDER TEMP on 03-23-2023 Bedside Glucose Comment Glu2: cleaned meter [facility] No Panel InformationOrdered By: Milton Rivera on 03-23-2023 Estimated GFR (CKD-EPI) > 60.0 mL/Min [facility] Creatinine Clearance (Chem 85.00 [facility] Nucleated erythrocytes [Pres ence] in Blood by Automated countOrdered By: Milton Rivera on 03-23-2023 Nucleated RBC Auto Ql (Bld) 0.1 /100{WBC} 0-0.5 [facility] Platelet mean volume Auto (B ld) [Entitic vol]Ordered By: Milton Rivera on 03-23-2023 Platelet mean volume (Bld) [Entitic vol] 8.6 fL 6.3-10.7 [facility] Platelets Auto (Bld) [#/Vol] Ordered By: Milton Rivera on 03-23-2023 Platelets (Bld) [#/Vol] 257 10*3/uL 150-450 [facility] Potassium [Moles/volume] in Serum or PlasmaOrdered By: Milton Rivera on 03-23-2023 Potassium [Moles/Vol] 4.3 mmol/L 3.5-5.1 [facility] Prolactin [Mass/volume] in S alexis or PlasmaOrdered By: Milton Rivera on 03-23-2023 Prolactin [Mass/Vol] 23.65 ng/mL 3.34-26.72 [facility] Protein [Mass/volume] in Ser um or PlasmaOrdered By: Milton Rivera on 03-23-2023 Protein [Mass/Vol] 8.1 g/dL 6.4-8.9 [facility] RBC Auto (Bld) [#/Vol]Ordere d By: Milton Rivera on 03-23-2023 RBC (Bld) [#/Vol] 4.78 10*6/uL 3.60-5.00 [facility] Serum or plasma albumin/glob ulin mass ratioOrdered By: Milton Rivera on 03-23-2023 Albumin/Globulin [Mass ratio] 1.5 {ratio} [facility] Serum or plasma anion gap de terminationOrdered By: Milton Rivera on 03-23-2023 Anion gap [Moles/Vol] 16.5 mmol/L 6.0-15.0 [facility] Sodium [Moles/volume] in Ser um or PlasmaOrdered By: Milton Rivera on 03-23-2023 Sodium [Moles/Vol] 139 mmol/L 136-145 [facility] Urea nitrogen [Mass/volume] in Serum or PlasmaOrdered By: Milton Rivera on 03-23-2023 Urea nitrogen [Mass/Vol] 12 mg/dL 7-25 [facility] WBC Auto (Bld) [#/Vol]Ordere d By: Milton Rivera on 03-23-2023 WBC (Bld) [#/Vol] 8.9 10*3/uL 3.8-11.6 [facility] Alanine aminotransferase [En zymatic activity/volume] in Serum or PlasmaOrdered By: Som Fiore on 03-11-2023 ALT [Catalytic activity/Vol] 6 U/L 7-52 [facility] Albumin [Mass/volume] in Ser um or Plasma by Bromocresol green (BCG) dye binding methoOrdered By: Som Fiore on 03-11-2023 Albumin BCG dye [Mass/Vol] 4.5 g/dL 3.5-5.7 [facility] Alkaline phosphatase [Enzyma tic activity/volume] in Serum or PlasmaOrdered By: Som Fiore on 03-11-2023 ALP [Catalytic activity/Vol] 55 U/L 34-104 [facility] Aspartate aminotransferase [ Enzymatic activity/volume] in Serum or PlasmaOrdered By: Som Fiore on 03-11-2023 AST [Catalytic activity/Vol] 14 U/L 13-39 [facility] Automated erythrocytes count in urine sediment (number/area)Ordered By: Som Fiore on 03-11-2023 RBC Auto (Urine sed) [#/Area] 3-4 [HPF] 0-4 [facility] Automated leukocytes count i n urine sediment (number/area)Ordered By: Som Fiore on 03-11-2023 WBC Auto (Urine sed) [#/Area] 3-4 [HPF] 0-4 [facility] Basophils Auto (Bld) [#/Vol] Ordered By: Som Fiore on 03-11-2023 Basophils (Bld) [#/Vol] 0.0 10*3/uL 0.0-0.2 [facility] Basophils/100 WBC Auto (Bld) Ordered By: Som Fiore on 03-11-2023 Basophils/100 WBC (Bld) 0.5 % . [facility] Bilirubin Test strip Ql (U)O rdered By: Som Fiore on 03-11-2023 Bilirubin Ql (U) Negative Negative [facility] Bilirubin.total [Mass/volume ] in Serum or PlasmaOrdered By: Som Fiore on 03-11-2023 Bilirubin [Mass/Vol] 0.4 mg/dL 0.3-1.0 [facility] Calcium [Mass/volume] in Ser um or PlasmaOrdered By: Som Fiore on 03-11-2023 Calcium [Mass/Vol] 9.3 mg/dL 8.6-10.3 [facility] Carbon dioxide, total [Moles /volume] in Serum or PlasmaOrdered By: Som Fiore on 03-11-2023 CO2 [Moles/Vol] 23.3 mmol/L 21.0-31.0 [facility] Chloride [Moles/volume] in S alexis or PlasmaOrdered By: Som Fiore on 03-11-2023 Chloride [Moles/Vol] 107 mmol/L 98-107 [facility] Color Auto (U)Ordered By: Giovanni Fiore on 03-11-2023 Color (U) Yellow Yellow [facility] Creatinine [Mass/volume] in Serum or PlasmaOrdered By: Som Fiore on 03-11-2023 Creatinine [Mass/Vol] 0.91 mg/dL 0.60-1.20 [facility] Eosinophils Auto (Bld) [#/Vo l]Ordered By: Som Fiore on 03-11-2023 Eosinophils (Bld) [#/Vol] 0.0 10*3/uL 0.0-0.45 [facility] Eosinophils/100 WBC Auto (Bl d)Ordered By: Som Fiore on 03-11-2023 Eosinophils/100 WBC (Bld) 0.5 % . [facility] Erythrocyte distribution wid th Auto (RBC) [Ratio]Ordered By: Som Fiore on 03-11-2023 Erythrocyte distribution width (RBC) [Ratio] 15.3 % 11.9-15.3 [facility] Globulin Calc (S) [Mass/Vol] Ordered By: Som Fiore on 03-11-2023 Globulin (S) [Mass/Vol] 2.9 g/dL [facility] Glucose [Mass/volume] in Ser um or PlasmaOrdered By: Som Fiore on 03-11-2023 Glucose [Mass/Vol] 89 mg/dL 70-100 [facility] Comment on above: ADA recommended refe rence rangeRandom Glucose Reference Range is dependent on time and content of last meal. Glucose of more than 200 mg/dL in a nonstressed, ambulatory subject supports the diagnosis of Diabetes Mellitus. Hematocrit Auto (Bld) [Volum e fraction]Ordered By: Som Fiore on 03-11-2023 Hematocrit (Bld) [Volume fraction] 37.1 % 34.0-46.4 [facility] Hemoglobin [Mass/volume] in BloodOrdered By: Som Fiore on 03-11-2023 Hemoglobin (Bld) [Mass/Vol] 12.5 g/dL 11.8-15.4 [facility] Ketones Auto test strip (U) [Mass/Vol]Ordered By: Som Fiore on 03-11-2023 Ketones (U) [Mass/Vol] Negative Negative [facility] - UrinalysisOrder ed By: Smo Fiore on 03-11-2023 Hyaline casts LM Ql (Urine sed) 0-8 [LPF] 0-8 [facility] Leukocytes [#/volume] correc manjula for nucleated erythrocytes in Blood by Automated counOrdered By: Som Fiore on 03-11-2023 WBC corrected for nucl RBC Auto (Bld) [#/Vol] 8.2 10*3/uL 3.8-11.6 [facility] Lymphocytes Auto (Bld) [#/Vo l]Ordered By: Som Fiore on 03-11-2023 Lymphocytes (Bld) [#/Vol] 2.0 10*3/uL 1.00-4.8 [facility] Lymphocytes/100 WBC Auto (Bl d)Ordered By: Som Fiore on 03-11-2023 Lymphocytes/100 WBC (Bld) 23.7 % . [facility] MCH Auto (RBC) [Entitic mass ]Ordered By: Som Fiore on 03-11-2023 MCH (RBC) [Entitic mass] 28.7 pg 24.7-34.3 [facility] MCHC Auto (RBC) [Mass/Vol]Or dered By: Som Fiore on 03-11-2023 MCHC (RBC) [Mass/Vol] 33.7 g/dL 32.0-35.0 [facility] MCV Auto (RBC) [Entitic vol] Ordered By: Som Fiore on 03-11-2023 MCV (RBC) [Entitic vol] 85.1 fL 80-100 [facility] Monocyte distribution width [Entitic volume] in Blood by AutomatedOrdered By: Som Fiore on 03-11-2023 Monocyte distribution width Auto (Bld) [Entitic vol] 17.06 % 0.00-20.00 [facility] Monocytes Auto (Bld) [#/Vol] Ordered By: Som Fiore on 03-11-2023 Monocytes (Bld) [#/Vol] 0.5 10*3/uL 0.0-0.8 [facility] Monocytes/100 WBC Auto (Bld) Ordered By: Som Fiore on 03-11-2023 Monocytes/100 WBC (Bld) 5.8 % . [facility] Neutrophils Auto (Bld) [#/Vo l]Ordered By: Som Fiore on 03-11-2023 Neutrophils (Bld) [#/Vol] 5.7 10*3/uL 1.8-7.7 [facility] Neutrophils/100 WBC Auto (Bl d)Ordered By: Som Fiore on 03-11-2023 Neutrophils/100 WBC (Bld) 69.5 % . [facility] Nitrite Test strip Ql (U)Ord ered By: Som Fiore on 03-11-2023 Nitrite Ql (U) Negative Negative [facility] No Panel InformationOrdered By: Som Fiore on 03-11-2023 Levetiracetam (Keppra) Level 30.8 ug/mL 10.0-40.0 [facility] Comment on above: Performed at: - [address] [id number] Director: Sina Hills MD, Phone: [phone] Estimated GFR (CKD-EPI) > 60.0 mL/Min [facility] Creatinine Clearance (Chem 65.12 [facility] Nucleated erythrocytes [Pres ence] in Blood by Automated countOrdered By: Som Fiore on 03-11-2023 Nucleated RBC Auto Ql (Bld) 0.0 /100{WBC} 0-0.5 [facility] Platelet mean volume Auto (B ld) [Entitic vol]Ordered By: Som Fiore on 03-11-2023 Platelet mean volume (Bld) [Entitic vol] 8.0 fL 6.3-10.7 [facility] Platelets Auto (Bld) [#/Vol] Ordered By: Som Fiore on 03-11-2023 Platelets (Bld) [#/Vol] 272 10*3/uL 150-450 [facility] Potassium [Moles/volume] in Serum or PlasmaOrdered By: Som Fiore on 03-11-2023 Potassium [Moles/Vol] 3.6 mmol/L 3.5-5.1 [facility] Protein Auto test strip (U) [Mass/Vol]Ordered By: Som Fiore on 03-11-2023 Protein (U) [Mass/Vol] Negative Negative [facility] Protein [Mass/volume] in Ser um or PlasmaOrdered By: Som Fiore on 03-11-2023 Protein [Mass/Vol] 7.4 g/dL 6.4-8.9 [facility] RBC Auto (Bld) [#/Vol]Ordere d By: Som Fiore on 03-11-2023 RBC (Bld) [#/Vol] 4.36 10*6/uL 3.60-5.00 [facility] Serum or plasma albumin/glob ulin mass ratioOrdered By: Som Fiore on 03-11-2023 Albumin/Globulin [Mass ratio] 1.6 {ratio} [facility] Serum or plasma anion gap de terminationOrdered By: Som Fiore on 03-11-2023 Anion gap [Moles/Vol] 12.3 mmol/L 6.0-15.0 [facility] Sodium [Moles/volume] in Ser um or PlasmaOrdered By: Som Fiore on 03-11-2023 Sodium [Moles/Vol] 139 mmol/L 136-145 [facility] Specific gravity Auto test s trip (U) [Rel density]Ordered By: Som Fiore on 03-11-2023 Specific gravity (U) [Rel density] 1.019 1.001-1.03 0 [facility] Squamous epithelial cells de tection in urine sediment by light microscopyOrdered By: Som Fiore on 03-11-2023 Epithelial cells.squamous LM Ql (Urine sed) 1-2 [HPF] 0-2 [facility] Urea nitrogen [Mass/volume] in Serum or PlasmaOrdered By: Som Fiore on 03-11-2023 Urea nitrogen [Mass/Vol] 10 mg/dL 7-25 [facility] Urine bacteria detection by automated methodOrdered By: Som Fiore on 03-11-2023 Bacteria Auto Ql (U) 1+ None Seen [facility] Urine clarity by refractomet ry automatedOrdered By: Som Fiore on 03-11-2023 Clarity Refractometry automated (U) Clear Clear [facility] Urine glucose measurement by automated test strip (mass/volume)Ordered By: Som Fiore on 03-11-2023 Glucose Auto test strip (U) [Mass/Vol] Normal mg/dL Normal [facility] Urine hemoglobin detection b y automated test stripOrdered By: Som Fiore on 03-11-2023 Hemoglobin Auto test strip Ql (U) 1+ Negative [facility] Urine leukocyte esterase det ection by automated test stripOrdered By: Som Fiore on 03-11-2023 Leukocyte esterase Auto test strip Ql (U) Negative Negative [facility] Urobilinogen Auto test strip (U) [Mass/Vol]Ordered By: Som Fiore on 03-11-2023 Urobilinogen (U) [Mass/Vol] Normal mg/dL Normal [facility] WBC Auto (Bld) [#/Vol]Ordere d By: Som Fiore on 03-11-2023 WBC (Bld) [#/Vol] 8.2 10*3/uL 3.8-11.6 [facility] pH Auto test strip (U)Ordere d By: Som Fiore on 03-11-2023 pH (U) 7.0 [pH] 5.0-9.0 [facility] CBC with Auto Differentialon 02-06-2023 Basophils (Bld) [#/Vol] [facility] Basophils/100 WBC (Bld) 0 % 0 - 2 % [facility] Eosinophils (Bld) [#/Vol] [facility] [...] Immature granulocytes/100 WBC (Bld) 0 % [address] [facility] Interpretation and review of laboratory results Abnormal [facility] Lymphocytes/100 WBC (Bld) 26 % 25 - 45 % [facility] Lymphocytes/100 WBC (Bld) 2.58 % [facility] MCH (RBC) [Entitic mass] 28.5 pg [...] 68 % High 34 - 64 % [facility] Nucleated RBC/100 WBC (Bld) [Ratio] 0.0 % 0.0 per 100 WBC [facility] Platelet mean volume (Bld) [Entitic vol] 9.4 fL 8.1 - 13.5 fL [facility] Platelets (Bld) [#/Vol] 364 10*3/uL [facility] RBC (Bld) [#/Vol] 4.81 10*6/uL 3.95 - 5.11 m/uL [facility] Segmented neutrophils/100 WBC (Bld) 6.71 % [facility] WBC other (Bld) [#/Vol] 10.0 [facility] CBC with Diffon 02-06-2023 Abs. Basophil <0.03 Normal 0.00-0.20 [facility] Comment on above: Performed By: #### Kp Santamaria CP, CDP #### [facility] [address] [place] [address] [place] [address] Boat Pilot: Debbie Molina MD Abs. Eosinophil <0.03 Normal 0.00-0.44 [facility] Comment on above: Performed By: #### Kp Santamaria CP, CDP #### [address] [place], [facility] Boat Pilot: Debbie Molina MD Abs.Imm.Granulocyte <0.03 Normal 0.00-0.30 [facility] Comment on above: Performed By: #### Kp Santamaria CP, CDP #### [address] [place] [address] Boat Pilot: Debbie Molina MD Abs.Neutrophil (Seg) 6.71 k/uL Normal 1.50-8.10 [facility] Comment on above: Performed By: #### Kp Santamaria CP, CDP #### [address] [place], [place] [id number] Boat Pilot: Debbie Molina MD Basophils/100 WBC (Bld) 0 % Normal 0-2 [facility] Comment on above: Performed By: #### Kp Santamaria CP, CDP #### [address] [place], [place] [id number] Boat Pilot: Debbie Molina MD Eosinophils/100 WBC (Bld) 0 % Low 1-4 [facility] Comment on above: Performed By: #### Kp Santamaria CP, CDP #### [facility] [address] [place] [address] Boat Pilot: Dbebie Molina MD Erythrocyte distribution width (RBC) [Ratio] 12.8 % Normal 11.8-14.4 [facility] Comment on above: Performed By: #### Kp Santamaria CP, CDP #### [facility] [address] [place], [place] [address] Boat Pilot: Debbie Molina MD Hematocrit (Bld) [Volume fraction] 40.5 % Normal 36.3-47.1 [facility] Comment on above: Performed By: #### Kp Santamaria CP, CDP #### [address] [place] [address] Boat Pilot: Debbie Molina MD Hemoglobin (Bld) [Mass/Vol] 13.7 g/dL Normal 11.9-15.1 [facility] Comment on above: Performed By: #### Kp Santamaria CP, CDP #### [address] [place], [facility] Boat Pilot: Debbie Molina MD Immature granulocytes/100 WBC (Bld) 0 % Normal 0 [facility] Comment on above: Performed By: #### Kp Santamaria CP, CDP #### [address] [place], [place] [address] Boat Pilot: Debbie Molina MD Lymphocytes (Bld) [#/Vol] 2.58 10*3/uL Normal 1.10-3.70 [facility] Comment on above: Performed By: #### Kp Santamaria CP, CDP #### [facility] [address] [place], [place] [id number] Boat Pilot: Debbie Molina MD Lymphocytes/100 WBC (Bld) 26 % Normal 25-45 [facility] Comment on above: Performed By: #### Kp Santamaria CP, CDP #### [address] [place], [place] [id number] Boat Pilot: Debbie Molina MD MCH (RBC) [Entitic mass] 28.5 pg Normal 25.2-33.5 [facility] Comment on above: Performed By: #### Kp Santamaria CP, CDP #### [address] [place], [place] [id number] Boat Pilot: Debbie Molina MD MCHC (RBC) [Mass/Vol] 33.8 g/dL Normal 28.4-34.8 [facility] Comment on above: Performed By: #### Kp Santamaria CP, CDP #### [address] [place], [facility] Boat Pilot: Debbie Molina MD MCV (RBC) [Entitic vol] 84.2 fL Normal 82.6-102.9 [facility] Comment on above: Performed By: #### Kp Santamaria CP, CDP #### [address] [place], [facility] Boat Pilot: Debbie Molina MD Monocytes (Bld) [#/Vol] 0.64 10*3/uL Normal 0.10-1.40 [facility] Comment on above: Performed By: #### Kp Santamaria CP, CDP #### [address] [place], [facility] Boat Pilot: Debbie Molina MD Monocytes/100 WBC (Bld) 6 % Normal 2-8 [facility] Comment on above: Performed By: #### Kp Santamaria CP, CDP #### [address] [place], [place] [id number] Boat Pilot: Debbie Molina MD Neutrophil (Seg) 68 % High 34-64 [facility] Comment on above: Performed By: #### Kp Santamaria CP, CDP #### [address] [place], [place] [address] Boat Pilot: Debbie Molina MD NRBC Automated 0.0 per 100 WBC Normal 0.0 [facility] Comment on above: Performed By: #### Kp Santamaria CP, CDP #### [facility] [address] [place], [facility] Boat Pilot: Debbie Molina MD Platelet mean volume (Bld) [Entitic vol] 9.4 fL Normal 8.1-13.5 [facility] Comment on above: Performed By: #### Kp Santamaria CP, CDP #### [facility] [address] [place], [facility] Boat Pilot: Debbie Molina MD Platelets (Bld) [#/Vol] 364 10*3/uL Normal 138-453 [facility] Comment on above: Performed By: #### Kp Santamaria CP, CDP #### [facility] [address] [place], [facility] Boat Pilot: Debbie Molina MD RBC (Bld) [#/Vol] 4.81 10*6/uL Normal 3.95-5.11 [facility] Comment on above: Performed By: #### Kp Santamaria CP, CDP #### [address] [place], [place] [address] Boat Pilot: Debbie Molina MD WBC (Bld) [#/Vol] 10.0 10*3/uL Normal 4.5-13.5 [facility] Comment on above: Performed By: #### Kp Santamaria CP, CDP #### [facility] [address] [place], [facility] Boat Pilot: Debbie Molina [facility] Albumin [Mass/Vol] 4.9 g/dL 3.5 - 5.2 g/dL [facility] Albumin/Globulin [Mass ratio] 1.8 {ratio} 1.0 - 2.5 [facility] ALP [Catalytic activity/Vol] 74 U/L 35 - 104 U/L [facility] ALT [Catalytic activity/Vol] 6 U/L 5 - 33 U/L [facility] Anion gap [Moles/Vol] 14 mmol/L 9 - 17 mmol/L [facility] AST [Catalytic activity/Vol] 16 U/L NINF - 32 U/L [facility] Bilirubin [Mass/Vol] 0.4 mg/dL 0.3 - 1 .2 mg/dL [facility] Calcium [Mass/Vol] 9.6 mg/dL 8.6 - 10. 4 mg/dL [facility] Chloride [Moles/Vol] 102 mmol/L 98 - 10 7 mmol/L [facility] CO2 [Moles/Vol] 25 mmol/L 20 - 31 mmol/L [facility] Creatinine [Mass/Vol] 0.7 mg/dL 0.5 - 0.9 mg/dL [facility] GFR/1.73 sq M.predicted MDRD (S/P/Bld) [Vol rate/Area] - PIN[facility] Comment on above: These results are not [...] 111 mg/dL High 70 - 99 mg/dL [facility] Interpretation and review of laboratory results Abnormal [facility] Potassium [Moles/Vol] 4.0 mmol/L 3.7 - 5.3 mmol/L [facility] Protein [Mass/Vol] 7.7 g/dL 6.4 - 8.3 g/dL [facility] Sodium [Moles/Vol] 141 mmol/L 135 - 144 mmol/L [facility] Urea nitrogen [Mass/Vol] 8 mg/dL 6 - 20 mg/dL [facility] Urea nitrogen/Creatinine [Mass ratio] 11 mg/mg 9 - [address] [facility] [address] HEAD WO CONTRASTon 2022 CT HEAD [...] Ferdinand Chavarria MD 02/06/23 Final result Normal [facility] CT Head WO Contraston 2022 1. No acute intracra nial abnormality. [facility] EXAMINATION: CT OF THE [...] clear. SOFT TISSUES/SKULL: The calvarium is intact. [facility] Ferdinand Chavarria MD - [...] intact. IMPRESSION: 1. No acute intracranial abnormality. [facility] Radiology Study observation (narrative) [facility] CT Head WO ContrastOrdered B y: Ferdinand Chavarria on 02-06-2023 [facility] Work Phone: Comp Metabolic Profon 2022 Albumin [Mass/Vol] 4.9 g/dL Normal 3.5-5.2 [facility] Comment on above: Performed By: #### Kp Santamaria CP, CDP #### [facility] [address] [place] [address] [place] [address] Boat Pilot: Debbie Molina MD Albumin/Glob Ratio 1.8 Normal 1.0-2.5 [facility] Comment on above: Performed By: #### Kp Santamaria CP, CDP #### [facility] [address] [place] [address] [place] [address] Boat Pilot: Debbie Molina MD Alkaline Phos 74 U/L Normal 35-104 [facility] Comment on above: Performed By: #### Kp Santamaria CP, CDP #### [facility] [address] [place] [address] Boat Pilot: Debbie Molina MD ALT [Catalytic activity/Vol] 6 U/L Normal 5-33 [facility] Comment on above: Performed By: #### Kp Santamaria CP, CDP #### [facility] [address] [place], [place] [id number] Boat Pilot: Debbie Molina MD Anion gap [Moles/Vol] 14 mmol/L Normal 9-17 [facility] Comment on above: Performed By: #### Kp Santamaria CP, CDP #### [facility] [address] [place], [place] [phone] Boat Pilot: Debbie Molina MD AST [Catalytic activity/Vol] 16 U/L Normal <32 [facility] Comment on above: Performed By: #### Kp Santamaria CP, CDP #### [facility] [address] [place], [place] [phone] Boat Pilot: Debbie Molina MD Bilirubin [Mass/Vol] 0.4 mg/dL Normal 0.3-1.2 [facility] Comment on above: Performed By: #### Kp Santamaria CP, CDP #### [facility] [address] [place] [address] [place], [place] [phone] Boat Pilot: Debbie Molina MD BUN/CRE Ratio 11 Normal 9-20 [facility] Comment on above: Performed By: #### Kp Santamaria CP, CDP #### [facility] [address] [place] [address] [place], [place] [id number] Boat Pilot: Debbie Molina MD Calcium [Mass/Vol] 9.6 mg/dL Normal 8.6-10.4 [facility] Comment on above: Performed By: #### Kp Santamaria CP, CDP #### [facility] [address] [place], [place] [id number] Boat Pilot: Debbie Molina MD Chloride [Moles/Vol] 102 mmol/L Normal 98-107 [facility] Comment on above: Performed By: #### Kp Santamaria CP, CDP #### [facility] [address] [place], [place] [phone] Boat Pilot: Debbie Molina MD CO2 [Moles/Vol] 25 mmol/L Normal 20-31 [facility] Comment on above: Performed By: #### Kp Santamaria CP, CDP #### [facility] [address] [place] [address] Boat Pilot: Debbie Molina MD Creatinine [Mass/Vol] 0.7 mg/dL Normal 0.5-0.9 [facility] Comment on above: Performed By: #### Kp Santamaria CP, CDP #### [facility] [address] [place] [address] Boat Pilot: Debbie Molina MD GFR/1.73 sq M.predicted among non-blacks MDRD (S/P/Bld) [Vol rate/Area] mL/min/{1.73_m2} Normal >60 [facility] Comment on above: Result [...] By: #### Kp Santamaria CP, CDP #### [facility] [address] [place] [address] [place] [address] Boat Pilot: Debbie Molina MD Glucose [Mass/Vol] 111 mg/dL High 70-99 [facility] Comment on above: Performed By: #### Kp Santamaria CP, CDP #### [facility] [address] [place] [address] Boat Pilot: Debbie Molina MD Potassium [Moles/Vol] 4.0 mmol/L Normal 3.7-5.3 [facility] Comment on above: Performed By: #### Kp Santamaria CP, CDP #### [facility] [address] [place] [address] Boat Pilot: Debbie Molina MD Protein [Mass/Vol] 7.7 g/dL Normal 6.4-8.3 [facility] Comment on above: Performed By: #### Kp Santamaria CP, CDP #### [facility] [address] [place], [place] [phone] Boat Pilot: Debbie Molina MD Sodium [Moles/Vol] 141 mmol/L Normal 135-144 [facility] Comment on above: Performed By: #### Kp Santamaria CP, CDP #### [facility] [address] [place], [place] [address] Boat Pilot: Debbie Molina MD Urea nitrogen [Mass/Vol] 8 mg/dL Normal 6-20 [facility] Comment on above: Performed By: #### Kp Santamaria CP, CDP #### [facility] [address] [place], [place] [phone] Boat Pilot: Debbie Molina MD Lactic Acidon 02-06-2023 Lactate [Moles/Vol] 2.5 mmol/L High 0.5-2.2 [facility] Comment on above: Performed By: #### L ACTIC #### [facility] [address] [place], [place] [phone] Boat Pilot: Debbie Molina MD Interpretation and review of laboratory results Abnormal [facility] Lactate (BldV) [Moles/Vol] 2.5 mmol/L High 0.5 - 2.2 mmol/L [facility] Magnesiumon 02-06-2023 Magnesium [Mass/Vol] 2.0 mg/dL Normal 1.6-2.6 [facility] Comment on above: Performed By: #### Kp Santamaria CP, CDP #### [facility] [address] [place] [address] Boat Pilot: Debbie Molina MD Magnesium [Mass/Vol] 2.0 mg/dL 1.6 - 2 .6 mg/dL [facility] No Panel Informationon 02-[address] [facility] [address] HEAD WO CONon 09-24-2022 CT HEAD [...] NAHUN SAMUELS Date: 2022-09-23 23:01 Normal [facility] ER URINE PROFILEon 3 Bilirubin Ql (U) Negative Normal NEGATIVE [facility] Comment on above: Performed By: #### C MP, HSTROPN #### [facility] [address] [address] [address] Jovanni Maya Clarity (U) CLEAR Normal CLEAR [facility] Comment on above: Performed By: #### C DANIEL, HSTROPN #### [facility] [address] [address] [address] Jovanni Maya Color (U) YELLOW Normal YELLOW [facility] Comment on above: Performed By: #### C MP, HSTROPN #### [facility] [address] [address] [address] Jovanni Maya ERUAHD A micrscopic examina tion will be performed if indicated. Normal [facility] Comment on above: Performed By: #### C MP, HSTROPN #### [facility] [address] [address] [address] Jovanni Maya Glucose Ql (U) Negative Normal NEGATIVE [facility] Comment on above: Performed By: #### C MP, HSTROPN #### [facility] [address] [address] [address] Jovanni Maya Hemoglobin Ql (U) Negative Normal NEGATIVE [facility] Comment on above: Performed By: #### C MP, HSTROPN #### [facility] [address] [address] [address] Jovanni Maya Ketones Ql (U) 40 mg/dl Abnormal NEGATIVE [facility] Comment on above: Performed By: #### C MP, HSTROPN #### [facility] [address] [place] [address] Dr. Jovanni Maya LEUKOCYTES Negative Normal NEGATIVE [facility] Comment on above: Performed By: #### C MP, HSTROPN #### [facility] [address] [address] [address] Jovanni Maya Nitrite Ql (U) Negative Normal NEGATIVE [facility] Comment on above: Performed By: #### C DANIEL, HSTROPN #### [facility] [address] [address] [address] Jovanni Maya pH (U) 7.0 [pH] Normal 5-9 [facility] Comment on above: Performed By: #### C DANIEL, HSTROPN #### [facility] [address] [address] [address] Jovanni Maya SPEC GRAVITY 1.015 Normal 1.005-<=1. 025 [facility] Comment on above: Performed By: #### C DANIEL, HSTROPN #### [facility] [address] [address] [address] Jovanni Maya UA PROTEIN Negative Normal NEGATIVE/ TRACE [facility] Comment on above: Performed By: #### C MP, HSTROPN #### [facility] [address] [place] [address] Dr. Jovanni Maya UR MICRO IND NOT INDICATED Normal [facility] Comment on above: Performed By: #### C MP, HSTROPN #### [facility] [address] [place] [address] Dr. Jovanni Maya Urobilinogen Qn (U) 0.2 {Carlos A'U}/dL Normal 0.2 - 1. 0 [facility] Comment on above: Performed By: #### C MP, HSTROPN #### [facility] [address] [place] [address] Dr. Jovanni Maya LACTATE/LACTIC ACIDon 2022 Lactate [Moles/Vol] 0.6 mmol/L Normal 0.4-2.0 [facility] Comment on above: Performed By: #### P REG, ACETON #### [facility] [address] [place] [address] Dr. Jovanni Maya POINT OF CARE GLUCOSEon 08-27 Glucose [Mass/Vol] 123 mg/dL Critically high 74-106 [facility] Comment on above: Performed By: #### P OCGLUC #### [facility] [address] [place] [address] Dr. Jovanni Maya XR CHEST 1 Von [...] DEBBIE BRITT Date: 2022-09-23 22:21 Normal [facility] ACETONE SERUMon 09-23-2022 ACETONE Negative Normal NEGATIVE [facility] Comment on above: Performed By: #### P REG, ACETON #### [facility] [address] [place] [address] Dr. Jovanni Maya CBC AUTO DIFFon 09-23-2022 BASO # 0.0 103/ul Normal 0.0-0.1 [facility] Comment on above: Performed By: #### C BC #### [facility] [address] [place] [address] Dr. Jovanni Maya Basophils/100 WBC (Bld) 0.3 % Normal 0.2-2.0 [facility] Comment on above: Performed By: #### C BC #### [facility] [address] [place] [address] Dr. Jovanni Maya EO # 0.0 103/ul Normal 0.0-0.7 [facility] Comment on above: Performed By: #### C BC #### [facility] [address] [place] [address] Dr. Jovanni Maya Eosinophils/100 WBC (Bld) 0.1 % Critically low 0.9-7.0 [facility] Comment on above: Performed By: #### C BC #### [facility] [address] [place] [address] Dr. Jovanni Maya Erythrocyte distribution width (RBC) [Ratio] 12.4 % Normal 11.0-15.0 [facility] Comment on above: Performed By: #### C BC #### [facility] [address] [place] [address] Dr. Jovanni Maya Hematocrit (Bld) [Volume fraction] 39.6 % Normal 36.0-48.0 [facility] Comment on above: Performed By: #### C BC #### [facility] [address] [place] [address] Dr. Jovanni Maya Hemoglobin (Bld) [Mass/Vol] 13.7 g/dL Normal 12.0-16.0 [facility] Comment on above: Performed By: #### C BC #### [facility] [address] [place] [address] Dr. Jovanni Maya IG # 0.02 10e3/ul Normal 0.00-0.03 [facility] Comment on above: Performed By: #### C BC #### [facility] [address] [place] [address] Dr. Jovanni Maya IG % 0.2 % Normal 0.0-0.5 [facility] Comment on above: Performed By: #### C BC #### [facility] [address] [place] [address] Dr. Jovanni Maya LYMPH # 2.2 103/ul Normal 1.2-3.8 [facility] Comment on above: Performed By: #### C BC #### [facility] [address] [place] [address] Dr. Jovanni Maya Lymphocytes/100 WBC (Bld) 24.8 % Normal 20.5-60.0 [facility] Comment on above: Performed By: #### C BC #### [facility] [address] [place] [address] Dr. Jovanni Maya MANUAL DIFF REQ NO Normal [facility] Comment on above: Performed By: #### C BC #### [facility] [address] [place] [address] Dr. Jovanni Maya MCH (RBC) [Entitic mass] 29.7 pg Normal 26.7-34.0 [facility] Comment on above: Performed By: #### C BC #### [facility] [address] [place] [address] Dr. Jovanni Maya MCHC (RBC) [Mass/Vol] 34.6 g/dL Normal 29.9-35.2 [facility] Comment on above: Performed By: #### C BC #### [facility] [address] [place] [address] Dr. Jovanni Maya MCV (RBC) [Entitic vol] 85.7 fL Normal 81.0-99.0 [facility] Comment on above: Performed By: #### C BC #### [facility] [address] [place] [address] Dr. Jovanni Maya MONO # 0.7 103/ul Normal 0.3-0.8 [facility] Comment on above: Performed By: #### C BC #### [facility] [address] [place] [address] Dr. Jovanni Maya Monocytes/100 WBC (Bld) 7.6 % Normal 1.7-12.0 [facility] Comment on above: Performed By: #### C BC #### [facility] [address] [place] [address] Dr. Jovanni Maya NEUT # 5.9 103/ul Normal 1.4-6.5 [facility] Comment on above: Performed By: #### C BC #### [facility] [address] [place] [address] Dr. Jovanni Maya Neutrophils/100 WBC (Bld) 67.0 % Normal 43.0-75.0 [facility] Comment on above: Performed By: #### C BC #### [facility] [address] [place] [address] Dr. Jovanni Maya Platelet mean volume (Bld) [Entitic vol] 9.3 fL Critically low 9.5-13.5 [facility] Comment on above: Performed By: #### C BC #### [facility] [address] [place] [address] Dr. Jovanni Maya PLT 259 103/ul Normal 150-450 [facility] Comment on above: Performed By: #### C BC #### [facility] [address] [place] [address] Dr. Jovanni Maya RBC 4.62 106/ul Normal 4.20-5.40 [facility] Comment on above: Performed By: #### C BC #### [facility] [address] [place] [address] Dr. Jovanni Maya WBC 8.8 103/ul Normal 4.0-11.0 [facility] Comment on above: Performed By: #### C BC #### [facility] [address] [place] [address] Dr. Jovanni Maya D-DIMERon 09-23-2022 D-DIMER 0.19 mg/L FEU Normal <=0.59 [facility] Comment on above: Performed By: #### C MP, HSTROPN #### [facility] [address] [place] [address] Dr. Jovanni Maya D-DIMER COMMENTS SEE BELOW Normal [facility] Comment on above: Result Comment: Incr [...] Performed By: #### C MP, HSTROPN #### [facility] [address] [place] [address] Dr. Jovanni Maya GROUP A STREP CULTUREon 08-27 S. pyogenes Ag Ql (Unsp spec) Culture Observations: NEGATIVE FOR GROUP A STREPTOCOCCUS. Normal [facility] Comment on above: Performed By: #### C MP, HSTROPN #### [facility] [address] [place] [address] Dr. Jovanni Maya INFLUENZA A AND B AGon 09-23 INFLUENZA A AG Negative Normal NEGATIVE SEE COMMENT [facility] Comment on above: Performed By: #### I NFLUAB #### [facility] [address] [place] [address] Dr. Jovanni Maya INFLUENZA B AG Negative Normal NEGATIVE SEE COMMENT [facility] Comment on above: Performed By: #### I NFLUAB #### [facility] [address] [place] [address] Dr. Jovanni Maya LACTATE/LACTIC ACIDon 2022 Lactate [Moles/Vol] 3.2 mmol/L Critically high 0.4-2.0 [facility] Comment on above: Performed By: #### L ACT #### [facility] [address] [place] [address] Dr. Jovanni Maya PREG HCG QUALon 09-23-2022 , QUAL Negative Normal NEGATIVE [facility] Comment on above: Performed By: #### P REG, ACETON #### [facility] [address] [place] [address] Dr. Jovanni Maya PROF 14(COMP METB)on 023 Albumin [Mass/Vol] 4.6 g/dL Normal 3.4-5.0 [facility] Comment on above: Performed By: #### C MP, HSTROPN #### [facility] [address] [place] [address] Dr. Jovanni Maya Albumin/Globulin [Mass ratio] 1.5 {ratio} Normal [facility] Comment on above: Performed By: #### C MP, HSTROPN #### [facility] [address] [address] [address] Jovanni Maya ALP [Catalytic activity/Vol] 59 U/L Normal 46-116 [facility] Comment on above: Performed By: #### C MP, HSTROPN #### [facility] [address] [place] [address] Dr. Jovanni Maya ALT [Catalytic activity/Vol] 11 U/L Critically low 14-59 [facility] Comment on above: Performed By: #### C MP, HSTROPN #### [facility] [address] [place] [address] Dr. Jovanni Maya Anion gap [Moles/Vol] 15.3 mmol/L Normal [facility] Comment on above: Performed By: #### C MP, HSTROPN #### [facility] [address] [place] [address] Dr. Jovanni Maya AST [Catalytic activity/Vol] 10 U/L Critically low 15-37 [facility] Comment on above: Performed By: #### C MP, HSTROPN #### [facility] [address] [place] [address] Dr. Jovanni Maya Bilirubin [Mass/Vol] 0.8 mg/dL Normal 0.2-1.0 [facility] Comment on above: Performed By: #### C MP, HSTROPN #### [facility] [address] [place] [address] Dr. Jovanni Maya Calcium [Mass/Vol] 9.2 mg/dL Normal 8.5-10.1 [facility] Comment on above: Performed By: #### C MP, HSTROPN #### [facility] [address] [place] [address] Dr. Jovanni Maya Chloride [Moles/Vol] 105 mmol/L Normal 98-107 [facility] Comment on above: Performed By: #### C MP, HSTROPN #### [facility] [address] [place] [address] Dr. Jovanni Maya CO2 [Moles/Vol] 24.4 mmol/L Normal 21.0-32.0 [facility] Comment on above: Performed By: #### C MP, HSTROPN #### [facility] [address] [address] [address] Jovanni Maya Creatinine [Mass/Vol] 0.99 mg/dL Normal 0.55-1.02 [facility] Comment on above: Performed By: #### C MP, HSTROPN #### [facility] [address] [address] [address] Jovanni Maya EGFR-AF ARMENIAN >60 Normal >=60 [facility] Comment on above: Performed By: #### C MP, HSTROPN #### [facility] [address] [address] [address] Jovanni Maya EGFR-NON AF ARMENIAN >60 Normal >=60 [facility] Comment on above: Performed By: #### C MP, HSTROPN #### [facility] [address] [address] [address] Jovanni Maya Globulin (S) [Mass/Vol] 3.1 g/dL Normal [facility] Comment on above: Performed By: #### C MP, HSTROPN #### [facility] [address] [address] [address] Jovanni Maya Glucose [Mass/Vol] 113 mg/dL Critically high 74-106 T [facility] Comment on above: Performed By: #### C MP, HSTROPN #### [facility] [address] [address] [address] Jovanni Maya Potassium [Moles/Vol] 3.7 mmol/L Normal 3.5-5.1 [facility] Comment on above: Performed By: #### C MP, HSTROPN #### [facility] [address] [address] [address] Jovanni Maya Protein [Mass/Vol] 7.7 g/dL Normal 6.4-8.2 [facility] Comment on above: Performed By: #### C MP, HSTROPN #### [facility] [address] [address] [address] Jovanni Maya Sodium [Moles/Vol] 141 mmol/L Normal 136-145 [facility] Comment on above: Performed By: #### C DANIEL, HSTROPN #### [facility] [address] [place] [address] Dr. Jovanni Maya Urea nitrogen [Mass/Vol] 10.0 mg/dL Normal 7.0-18.0 [facility] Comment on above: Performed By: #### C DANIEL, HSTROPN #### [facility] [address] [place] [address] Dr. Jovanni Maya Urea nitrogen/Creatinine [Mass ratio] 10.1 mg/mg Normal [facility] Comment on above: Performed By: #### C DANIEL, HSTROPN #### [facility] [address] [place] [address] Dr. Jovanni Maya STREPT SCREENon 09-23-2022 STREP SCREEN A Negative Normal NEGATIVE [facility] Comment on above: Performed By: #### C DANIEL, HSTROPN #### [facility] [address] [place] [address] Dr. Jovanni Maya TROPONIN, HIGH SENSITIVITYon 09-23-2022 HSTROP <4.0 Normal 4.0-51.3 [facility] Comment on above: Result Comment: CUT- OFF POINTS HAVE BEEN ESTABLISHED BASED ON THE FOURTH UNIVERSAL DEFINITIONS OF MYOCARDIAL INFARCTION. THE UPPER REFERENCE LIMIT (URL) OF TROPONIN, DEFINED THE 99TH PERCENTILE OF cTnI DISTRIBUTION IN A REFERENCE POPULATION, HAS BEEN CONFIRMED THE DECISION THRESHOLD FOR ND DIAGNOSIS. Performed By: #### C DANIEL, HSTROPN #### [facility] [address] [place] [address] Dr. Jovanni Maya Alanine aminotransferase [En zymatic activity/volume] in Serum or PlasmaOrdered By: Federica Bullimore on 09-13-2022 ALT [Catalytic activity/Vol] 5 U/L 7-52 [facility] Albumin [Mass/volume] in Ser um or Plasma by Bromocresol green (BCG) dye binding methoOrdered By: Federica Bullimore on 09-13-2022 Albumin BCG dye [Mass/Vol] 4.3 g/dL 3.5-5.7 [facility] Alkaline phosphatase [Enzyma tic activity/volume] in Serum or PlasmaOrdered By: Federica Bullimore on 09-13-2022 ALP [Catalytic activity/Vol] 45 U/L 34-104 [facility] Aspartate aminotransferase [ Enzymatic activity/volume] in Serum or PlasmaOrdered By: Federica Bullimore on 09-13-2022 AST [Catalytic activity/Vol] 12 U/L 13-39 [facility] Basophils Auto (Bld) [#/Vol] Ordered By: Federica Bullimore on 09-13-2022 Basophils (Bld) [#/Vol] 0.0 10*3/uL 0.0-0.2 [facility] Basophils/100 WBC Auto (Bld) Ordered By: Federica Bullimore on 09-13-2022 Basophils/100 WBC (Bld) 0.7 % . [facility] Bilirubin.total [Mass/volume ] in Serum or PlasmaOrdered By: Federica Bullimore on 09-13-2022 Bilirubin [Mass/Vol] 0.5 mg/dL 0.3-1.0 [facility] Calcium [Mass/volume] in Ser um or PlasmaOrdered By: Federica Bullimore on 09-13-2022 Calcium [Mass/Vol] 9.1 mg/dL 8.6-10.3 [facility] Carbon dioxide, total [Moles /volume] in Serum or PlasmaOrdered By: Federica Bullimore on 09-13-2022 CO2 [Moles/Vol] 30.0 mmol/L 21.0-31.0 [facility] Chloride [Moles/volume] in S alexis or PlasmaOrdered By: Federica Bullimore on 09-13-2022 Chloride [Moles/Vol] 105 mmol/L 98-107 [facility] Creatinine [Mass/volume] in Serum or PlasmaOrdered By: Federica Bullimore on 09-13-2022 Creatinine [Mass/Vol] 0.91 mg/dL 0.60-1.20 [facility] Eosinophils Auto (Bld) [#/Vo l]Ordered By: Federica Bullimore on 09-13-2022 Eosinophils (Bld) [#/Vol] 0.0 10*3/uL 0.0-0.45 [facility] Eosinophils/100 WBC Auto (Bl d)Ordered By: Federica Wolfe on 09-13-2022 Eosinophils/100 WBC (Bld) 0.5 % . [facility] Erythrocyte distribution wid th Auto (RBC) [Ratio]Ordered By: Federica Wolfe on 09-13-2022 Erythrocyte distribution width (RBC) [Ratio] 13.3 % 11.9-15.3 [facility] Globulin Calc (S) [Mass/Vol] Ordered By: Federica Wolfe on 09-13-2022 Globulin (S) [Mass/Vol] 2.7 g/dL [facility] Glucose [Mass/volume] in Ser um or PlasmaOrdered By: Federica Wolfe on 09-13-2022 Glucose [Mass/Vol] 89 mg/dL 74-109 [facility] Comment on above: ADA recommended refe rence rangeRandom Glucose Reference Range is dependent on time and content of last meal. Glucose of more than 200 mg/dL in a nonstressed, ambulatory subject supports the diagnosis of Diabetes Mellitus. Hematocrit Auto (Bld) [Volum e fraction]Ordered By: Federica Wolfe on 09-13-2022 Hematocrit (Bld) [Volume fraction] 37.5 % 34.0-46.4 [facility] Hemoglobin [Mass/volume] in BloodOrdered By: Federica Wolfe on 09-13-2022 Hemoglobin (Bld) [Mass/Vol] 12.7 g/dL 11.8-15.4 [facility] - Chemistry and C hemistry - challengeOrdered By: Federica Wolfe on 09-13-2022 GFR/1.73 sq M.predicted MDRD (S/P/Bld) [Vol rate/Area] mL/min/{1.73_m2} [facility] Leukocytes [#/volume] correc manjula for nucleated erythrocytes in Blood by Automated counOrdered By: Federica Wolfe on 09-13-2022 WBC corrected for nucl RBC Auto (Bld) [#/Vol] 5.9 10*3/uL 3.8-11.6 [facility] Lymphocytes Auto (Bld) [#/Vo l]Ordered By: Federica Bullimore on 09-13-2022 Lymphocytes (Bld) [#/Vol] 2.1 10*3/uL 1.00-4.8 [facility] Lymphocytes/100 WBC Auto (Bl d)Ordered By: Federica Bullimore on 09-13-2022 Lymphocytes/100 WBC (Bld) 36.0 % . [facility] MCH Auto (RBC) [Entitic mass ]Ordered By: Federica Bullimore on 09-13-2022 MCH (RBC) [Entitic mass] 29.7 pg 24.7-34.3 [facility] MCHC Auto (RBC) [Mass/Vol]Or dered By: Federica Bullimore on 09-13-2022 MCHC (RBC) [Mass/Vol] 33.8 g/dL 32.0-35.0 [facility] MCV Auto (RBC) [Entitic vol] Ordered By: Federica Bullimore on 09-13-2022 MCV (RBC) [Entitic vol] 88.0 fL 80-100 [facility] Monocyte distribution width [Entitic volume] in Blood by AutomatedOrdered By: Federica Bullimore on 09-13-2022 Monocyte distribution width Auto (Bld) [Entitic vol] 17.84 % 0.00-20.00 [facility] Monocytes Auto (Bld) [#/Vol] Ordered By: Federica Bullimore on 09-13-2022 Monocytes (Bld) [#/Vol] 0.4 10*3/uL 0.0-0.8 [facility] Monocytes/100 WBC Auto (Bld) Ordered By: Federica Bullimore on 09-13-2022 Monocytes/100 WBC (Bld) 7.0 % . [facility] Neutrophils Auto (Bld) [#/Vo l]Ordered By: Federica Bullimore on 09-13-2022 Neutrophils (Bld) [#/Vol] 3.3 10*3/uL 1.8-7.7 [facility] Neutrophils/100 WBC Auto (Bl d)Ordered By: Federica Bullimore on 09-13-2022 Neutrophils/100 WBC (Bld) 55.8 % . [facility] No Panel InformationOrdered By: Federica Bullimore on 09-13-2022 Pharmacy Creatinine Clearance (Chem 72.40 [facility] Nucleated erythrocytes [Pres ence] in Blood by Automated countOrdered By: Federica Bullimore on 09-13-2022 Nucleated RBC Auto Ql (Bld) 0.1 /100{WBC} 0-0.5 [facility] Platelet mean volume Auto (B ld) [Entitic vol]Ordered By: Federica Bullimore on 09-13-2022 Platelet mean volume (Bld) [Entitic vol] 8.0 fL 6.3-10.7 [facility] Platelets Auto (Bld) [#/Vol] Ordered By: Federica Bullimore on 09-13-2022 Platelets (Bld) [#/Vol] 245 10*3/uL 150-450 [facility] Potassium [Moles/volume] in Serum or PlasmaOrdered By: Federica Bullimore on 09-13-2022 Potassium [Moles/Vol] 3.7 mmol/L 3.5-5.1 [facility] Protein [Mass/volume] in Ser um or PlasmaOrdered By: Federica Bullimore on 09-13-2022 Protein [Mass/Vol] 7.0 g/dL 6.4-8.9 [facility] RBC Auto (Bld) [#/Vol]Ordere d By: Federica Bullimore on 09-13-2022 RBC (Bld) [#/Vol] 4.27 10*6/uL 3.60-5.00 [facility] Serum or plasma albumin/glob ulin mass ratioOrdered By: Federica Bullimore on 09-13-2022 Albumin/Globulin [Mass ratio] 1.6 {ratio} [facility] Serum or plasma anion gap de terminationOrdered By: Federica Bullimore on 09-13-2022 Anion gap [Moles/Vol] 8.7 mmol/L 6.0-15.0 [facility] Sodium [Moles/volume] in Ser um or PlasmaOrdered By: Federica Bullimore on 09-13-2022 Sodium [Moles/Vol] 140 mmol/L 136-145 [facility] Urea nitrogen [Mass/volume] in Serum or PlasmaOrdered By: Federica Bullimore on 09-13-2022 Urea nitrogen [Mass/Vol] 8 mg/dL 7-25 [facility] WBC Auto (Bld) [#/Vol]Ordere d By: Federica Wolfe on 09-13-2022 WBC (Bld) [#/Vol] 5.9 10*3/uL 3.8-11.6 [facility] Automated erythrocytes count in urine sediment (number/area)Ordered By: Shanelle Bowen on 08-30-2022 RBC Auto (Urine sed) [#/Area] 5-9 [HPF] 0-4 [facility] Automated leukocytes count i n urine sediment (number/area)Ordered By: Shanelle Bowen on 08-30-2022 WBC Auto (Urine sed) [#/Area] 5-9 [HPF] 0-4 [facility] Basophils Auto (Bld) [#/Vol] Ordered By: Shanelle Bowen on 08-30-2022 Basophils (Bld) [#/Vol] 0.0 10*3/uL 0.0-0.2 [facility] Basophils/100 WBC Auto (Bld) Ordered By: Shanelle Bowen on 08-30-2022 Basophils/100 WBC (Bld) 0.5 % . [facility] Bilirubin Test strip Ql (U)O rdered By: Shanelle Bowen on 08-30-2022 Bilirubin Ql (U) Negative Negative [facility] Calcium [Mass/volume] in Ser um or PlasmaOrdered By: Shanelle Bowen on 08-30-2022 Calcium [Mass/Vol] 9.4 mg/dL 8.2-10.2 [facility] Carbon dioxide, total [Moles /volume] in Serum or PlasmaOrdered By: Shanelle Bowen on 08-30-2022 CO2 [Moles/Vol] 21.7 mmol/L 22.0-30.0 [facility] Chloride [Moles/volume] in S alexis or PlasmaOrdered By: Shanelle Bowen on 08-30-2022 Chloride [Moles/Vol] 102 mmol/L 95-114 [facility] Color Auto (U)Ordered By: Brian Bowen on 08-30-2022 Color (U) Yellow Yellow [facility] Creatinine and Glomerular fi ltration rate.predicted panel (S/P/Bld)Ordered By: Shanelle Bowen on 08-30-2022 Creatinine [Mass/Vol] 0.99 mg/dL 0.44-1.03 [facility] Eosinophils Auto (Bld) [#/Vo l]Ordered By: Shanelle Bowen on 08-30-2022 Eosinophils (Bld) [#/Vol] 0.1 10*3/uL 0.0-0.45 [facility] Eosinophils/100 WBC Auto (Bl d)Ordered By: Shanelle Bowen on 08-30-2022 Eosinophils/100 WBC (Bld) 1.2 % . [facility] Erythrocyte distribution wid th Auto (RBC) [Ratio]Ordered By: Shanelle Bowen on 08-30-2022 Erythrocyte distribution width (RBC) [Ratio] 13.9 % 11.9-15.3 [facility] Estimated glomerular filtrat ion rate (GFR) non- AmericanOrdered By: Shanelle Bowen on 08-30-2022 GFR/1.73 sq M.predicted among non-blacks MDRD (S/P/Bld) [Vol rate/Area] > 60 mL/Min [facility] Glucose [Mass/volume] in Ser um or PlasmaOrdered By: Shanelle Bowen on 08-30-2022 Glucose [Mass/Vol] 101 mg/dL 70-100 [facility] Comment on above: ADA recommended refe rence rangeRandom Glucose Reference Range is dependent on time and content of last meal. Glucose of more than 200 mg/dL in a nonstressed, ambulatory subject supports the diagnosis of Diabetes Mellitus. Hematocrit Auto (Bld) [Volum e fraction]Ordered By: Shanelle Bowen on 08-30-2022 Hematocrit (Bld) [Volume fraction] 43.8 % 34.0-46.4 [facility] Hemoglobin [Mass/volume] in BloodOrdered By: Shanelle Bowen on 08-30-2022 Hemoglobin (Bld) [Mass/Vol] 14.6 g/dL 11.8-15.4 [facility] Ketones Auto test strip (U) [Mass/Vol]Ordered By: Shanelle Bowen on 08-30-2022 Ketones (U) [Mass/Vol] Trace Negative [facility] Laboratory - Chemistry and C hemistry - challengeOrdered By: Shanelle Bowen on 08-30-2022 Magnesium [Mass/Vol] 2.2 mg/dL 1.6-2.6 [facility] Laboratory - UrinalysisOrder ed By: Shanelle Bowen on 08-30-2022 Hyaline casts LM Ql (Urine sed) 0-8 [LPF] 0-8 [facility] Leukocytes [#/volume] correc manjula for nucleated erythrocytes in Blood by Automated counOrdered By: Shanelle Bowen on 08-30-2022 WBC corrected for nucl RBC Auto (Bld) [#/Vol] 10.5 10*3/uL 3.8-11.6 [facility] Lymphocytes Auto (Bld) [#/Vo l]Ordered By: Shanelle Bowen on 08-30-2022 Lymphocytes (Bld) [#/Vol] 3.9 10*3/uL 1.00-4.8 [facility] Lymphocytes/100 WBC Auto (Bl d)Ordered By: Shanelle Bowen on 08-30-2022 Lymphocytes/100 WBC (Bld) 36.9 % . [facility] MCH Auto (RBC) [Entitic mass ]Ordered By: Shanelle Bowen on 08-30-2022 MCH (RBC) [Entitic mass] 29.5 pg 24.7-34.3 [facility] MCHC Auto (RBC) [Mass/Vol]Or dered By: Shanelle Bowen on 08-30-2022 MCHC (RBC) [Mass/Vol] 33.3 g/dL 32.0-35.0 [facility] MCV Auto (RBC) [Entitic vol] Ordered By: Shanelle Bowen on 08-30-2022 MCV (RBC) [Entitic vol] 88.7 fL 80-100 [facility] Monocyte distribution width [Entitic volume] in Blood by AutomatedOrdered By: Shanelle Bowen on 08-30-2022 Monocyte distribution width Auto (Bld) [Entitic vol] 19.23 % 0.00-20.00 [facility] Monocytes Auto (Bld) [#/Vol] Ordered By: Shanelle Bowen on 08-30-2022 Monocytes (Bld) [#/Vol] 0.6 10*3/uL 0.0-0.8 [facility] Monocytes/100 WBC Auto (Bld) Ordered By: Shanelle Bowen on 08-30-2022 Monocytes/100 WBC (Bld) 5.6 % . [facility] Neutrophils Auto (Bld) [#/Vo l]Ordered By: Shanelle Bowen on 08-30-2022 Neutrophils (Bld) [#/Vol] 5.9 10*3/uL 1.8-7.7 [facility] Neutrophils/100 WBC Auto (Bl d)Ordered By: Shanelle Bowen on 08-30-2022 Neutrophils/100 WBC (Bld) 55.8 % . [facility] Nitrite Test strip Ql (U)Ord ered By: Shanelle Bowen on 08-30-2022 Nitrite Ql (U) Negative Negative [facility] No Panel InformationOrdered By: Shanelle Bowen on 08-30-2022 Lamotrigine (Lamictal) Level 4.2 ug/mL 2.0-20.0 [facility] Comment on above: Detection Limit = 1. 0Performed at: [facility] - [facility] [address] [id number] Director: Sina Hills MD, Phone: [phone] Levetiracetam (Keppra) Level 41.6 ug/mL 10.0-40.0 [facility] Comment on above: Performed at: [facility] - [facility] [address] [id number] Director: Sina Hills MD, Phone: [phone] Estimated GFR () > 60 mL/Min [facility] Comment on above: GFR estimated refere nce range: According to KDOQI guidelines, <60 ml/min/1.73m2 is sufficient to diagnose a patient with chronic kidney disease. Pharmacy Creatinine Clearance (Chem 67.83 [facility] Nucleated erythrocytes [Pres ence] in Blood by Automated countOrdered By: Shanelle Bowen on 08-30-2022 Nucleated RBC Auto Ql (Bld) 0.1 /100{WBC} 0-0.5 [facility] Platelet mean volume Auto (B ld) [Entitic vol]Ordered By: Shanelle Bowen on 08-30-2022 Platelet mean volume (Bld) [Entitic vol] 8.4 fL 6.3-10.7 [facility] Platelets Auto (Bld) [#/Vol] Ordered By: Shanelle Bowen on 08-30-2022 Platelets (Bld) [#/Vol] 288 10*3/uL 150-450 [facility] Potassium [Moles/volume] in Serum or PlasmaOrdered By: Shanelle Bowen on 08-30-2022 Potassium [Moles/Vol] 3.4 mmol/L 3.5-5.1 [facility] Protein Auto test strip (U) [Mass/Vol]Ordered By: Shanelle Bowen on 08-30-2022 Protein (U) [Mass/Vol] Trace mg/dL Negative [facility] RBC Auto (Bld) [#/Vol]Ordere d By: Shanelle Bowen on 08-30-2022 RBC (Bld) [#/Vol] 4.94 10*6/uL 3.60-5.00 [facility] Serum or plasma anion gap de terminationOrdered By: Shanelle Bowen on 08-30-2022 Anion gap [Moles/Vol] 17.7 mmol/L 6.0-15.0 [facility] Sodium [Moles/volume] in Ser um or PlasmaOrdered By: Shanelle Bowen on 08-30-2022 Sodium [Moles/Vol] 138 mmol/L 136-146 [facility] Specific gravity Auto test s trip (U) [Rel density]Ordered By: Shanelle Bowen on 08-30-2022 Specific gravity (U) [Rel density] 1.016 1.001-1.03 0 [facility] Squamous epithelial cells de tection in urine sediment by light microscopyOrdered By: Shanelle Bowen on 08-30-2022 Epithelial cells.squamous LM Ql (Urine sed) 1-2 [HPF] 0-2 [facility] Urea nitrogen [Mass/volume] in Serum or PlasmaOrdered By: Shanelle Bowen on 08-30-2022 Urea nitrogen [Mass/Vol] 5 mg/dL 9- [facility] Urine bacteria detection by automated methodOrdered By: Shanelle Bowen on 08-30-2022 Bacteria Auto Ql (U) None seen None Seen [facility] Urine clarity by refractomet ry automatedOrdered By: Shanelle Bowen on 08-30-2022 Clarity Refractometry automated (U) Clear Clear [facility] Urine culture routineOrdered By: Shanelle Bowen on 08-30-2022 Bacteria identified Cx Nom (U) 2 Days [facility] Urine glucose measurement by automated test strip (mass/volume)Ordered By: Shanelle Bowen on 08-30-2022 Glucose Auto test strip (U) [Mass/Vol] Normal mg/dL Normal [facility] Urine hemoglobin detection b y automated test stripOrdered By: Shanelle Bowen on 08-30-2022 Hemoglobin Auto test strip Ql (U) 3+ Negative [facility] Urine leukocyte esterase det ection by automated test stripOrdered By: Shanelle Bowen on 08-30-2022 Leukocyte esterase Auto test strip Ql (U) 1+ Negative [facility] Urobilinogen Auto test strip (U) [Mass/Vol]Ordered By: Shanelle Bowen on 08-30-2022 Urobilinogen (U) [Mass/Vol] Normal mg/dL Normal [facility] WBC Auto (Bld) [#/Vol]Ordere d By: Shanelle Bowen on 08-30-2022 WBC (Bld) [#/Vol] 10.5 10*3/uL 3.8-11.6 [facility] pH Auto test strip (U)Ordere d By: Shanelle Bowen on 08-30-2022 pH (U) 6.5 [pH] 5.0-9.0 [facility] Albumin [Mass/volume] in Ser um or PlasmaOrdered By: Roberto Whittaker on 08-18-2022 Albumin [Mass/Vol] 4.6 g/dL 3.2-5.5 [facility] Alkaline phosphatase [Enzyma tic activity/volume] in Serum or PlasmaOrdered By: Roberto Whittaker on 08-18-2022 ALP [Catalytic activity/Vol] 50 U/L 32-92 [facility] Aspartate aminotransferase [ Enzymatic activity/volume] in Serum or PlasmaOrdered By: Roberto Whittaker on 08-18-2022 AST [Catalytic activity/Vol] 19 U/L 10-42 [facility] Basophils Auto (Bld) [#/Vol] Ordered By: Roberto Whittaker on 08-18-2022 Basophils (Bld) [#/Vol] 0.0 10*3/uL 0.0-0.2 [facility] Basophils/100 WBC Auto (Bld) Ordered By: Roberto Whittaker on 08-18-2022 Basophils/100 WBC (Bld) 0.5 % . [facility] Calcium [Mass/volume] in Ser um or PlasmaOrdered By: Roberto Whittaker on 08-18-2022 Calcium [Mass/Vol] 9.4 mg/dL 8.2-10.2 [facility] Carbon dioxide, total [Moles /volume] in Serum or PlasmaOrdered By: Roberto Whittaker on 08-18-2022 CO2 [Moles/Vol] 26.7 mmol/L 22.0-30.0 [facility] Creatinine and Glomerular fi ltration rate.predicted panel (S/P/Bld)Ordered By: Roberto Whittaker on 08-18-2022 Creatinine [Mass/Vol] 0.87 mg/dL 0.44-1.03 [facility] Eosinophils Auto (Bld) [#/Vo l]Ordered By: Roberto Whittaker on 08-18-2022 Eosinophils (Bld) [#/Vol] 0.0 10*3/uL 0.0-0.45 [facility] Eosinophils/100 WBC Auto (Bl d)Ordered By: Roberto Whittaker on 08-18-2022 Eosinophils/100 WBC (Bld) 0.5 % . [facility] Erythrocyte distribution wid th Auto (RBC) [Ratio]Ordered By: Roberto Whittaker on 08-18-2022 Erythrocyte distribution width (RBC) [Ratio] 13.7 % 11.9-15.3 [facility] Estimated glomerular filtrat ion rate (GFR) non- AmericanOrdered By: Roberto Whittaker on 08-18-2022 GFR/1.73 sq M.predicted among non-blacks MDRD (S/P/Bld) [Vol rate/Area] > 60 mL/Min [facility] Globulin Calc (S) [Mass/Vol] Ordered By: Roberto Whittaker on 08-18-2022 Globulin (S) [Mass/Vol] 2.7 g/dL [facility] Hematocrit Auto (Bld) [Volum e fraction]Ordered By: Roberto Whittaker on 08-18-2022 Hematocrit (Bld) [Volume fraction] 39.6 % 34.0-46.4 [facility] Hemoglobin [Mass/volume] in BloodOrdered By: Roberto Whittaker on 08-18-2022 Hemoglobin (Bld) [Mass/Vol] 13.3 g/dL 11.8-15.4 [facility] Laboratory - Chemistry and C hemistry - challengeOrdered By: Roberto Whittaker on 08-18-2022 Magnesium [Mass/Vol] 2.1 mg/dL 1.6-2.6 [facility] Leukocytes [#/volume] correc manjula for nucleated erythrocytes in Blood by Automated counOrdered By: Roberto Whittaker on 08-18-2022 WBC corrected for nucl RBC Auto (Bld) [#/Vol] 6.9 10*3/uL 3.8-11.6 [facility] Lymphocytes Auto (Bld) [#/Vo l]Ordered By: Roberto Whittaker on 08-18-2022 Lymphocytes (Bld) [#/Vol] 2.2 10*3/uL 1.00-4.8 [facility] Lymphocytes/100 WBC Auto (Bl d)Ordered By: Roberto Whittaker on 08-18-2022 Lymphocytes/100 WBC (Bld) 31.2 % . [facility] MCH Auto (RBC) [Entitic mass ]Ordered By: Roberto Whittaker on 08-18-2022 MCH (RBC) [Entitic mass] 29.3 pg 24.7-34.3 [facility] MCHC Auto (RBC) [Mass/Vol]Or dered By: Roberto Whittaker on 08-18-2022 MCHC (RBC) [Mass/Vol] 33.5 g/dL 32.0-35.0 [facility] MCV Auto (RBC) [Entitic vol] Ordered By: Roberto Whittaker on 08-18-2022 MCV (RBC) [Entitic vol] 87.5 fL 80-100 [facility] Monocyte distribution width [Entitic volume] in Blood by AutomatedOrdered By: Roberto Whittaker on 08-18-2022 Monocyte distribution width Auto (Bld) [Entitic vol] 17.66 % 0.00-20.00 [facility] Monocytes Auto (Bld) [#/Vol] Ordered By: Roberto Whittaker on 08-18-2022 Monocytes (Bld) [#/Vol] 0.5 10*3/uL 0.0-0.8 [facility] Monocytes/100 WBC Auto (Bld) Ordered By: Roberto Whittaker on 08-18-2022 Monocytes/100 WBC (Bld) 7.4 % . [facility] Neutrophils Auto (Bld) [#/Vo l]Ordered By: Roberto Whittaker on 08-18-2022 Neutrophils (Bld) [#/Vol] 4.2 10*3/uL 1.8-7.7 [facility] Neutrophils/100 WBC Auto (Bl d)Ordered By: Roberto Whittaker on 08-18-2022 Neutrophils/100 WBC (Bld) 60.4 % . [facility] No Panel InformationOrdered By: Roberto Whittaker on 08-18-2022 Levetiracetam (Keppra) Level 98.1 ug/mL 10.0-40.0 [facility] Comment on above: Performed at: - [address] [id number] Director: Sina Hills MD, Phone: [phone] Estimated GFR () > 60 mL/Min [facility] Comment on above: GFR estimated refere nce range: According to KDOQI guidelines, <60 ml/min/1.73m2 is sufficient to diagnose a patient with chronic kidney disease. Pharmacy Creatinine Clearance (Chem 75.25 [facility] Nucleated erythrocytes [Pres ence] in Blood by Automated countOrdered By: Roberto Whittaker on 08-18-2022 Nucleated RBC Auto Ql (Bld) 0.1 /100{WBC} 0-0.5 [facility] Platelet mean volume Auto (B ld) [Entitic vol]Ordered By: Roberto Whittaker on 02-22-2023 Platelet mean volume (Bld) [Entitic vol] 7.8 fL 6.3-10.7 [facility] Platelets Auto (Bld) [#/Vol] Ordered By: Roberto Whittaker on 08-18-2022 Platelets (Bld) [#/Vol] 237 10*3/uL 150-450 [facility] Prolactin [Mass/volume] in S alexis or PlasmaOrdered By: Roberto Whittaker on 08-18-2022 Prolactin [Mass/Vol] 22.52 ng/mL 3.34-26.72 [facility] Protein [Mass/volume] in Ser um or PlasmaOrdered By: Roberto Whittaker on 08-18-2022 Protein [Mass/Vol] 7.3 g/dL 6.1-7.9 [facility] RBC Auto (Bld) [#/Vol]Ordere d By: Roberto Whittaker on 08-18-2022 RBC (Bld) [#/Vol] 4.53 10*6/uL 3.60-5.00 [facility] Serum or plasma alanine white otransferase measurement without P-5'-P (enzymatic activiOrdered By: Roberto Whittaker on 08-18-2022 ALT No additional P-5'-P [Catalytic activity/Vol] 10 U/L 10-60 [facility] Serum or plasma albumin/glob ulin mass ratioOrdered By: Roberto Whittaker on 08-18-2022 Albumin/Globulin [Mass ratio] 1.7 {ratio} [facility] Serum or plasma anion gap de terminationOrdered By: Roberto Whittaker on 08-18-2022 Anion gap [Moles/Vol] 11.9 mmol/L 6.0-15.0 [facility] Serum or plasma chloride melonie surement (moles/volume)Ordered By: Roberto Whittaker on 08-18-2022 Chloride [Moles/Vol] 103 mmol/L 95-114 [facility] Serum or plasma glucose randi urement (mass/volume)Ordered By: Roberto Whittaker on 08-18-2022 Glucose [Mass/Vol] 83 mg/dL 70-100 [facility] Comment on above: ADA recommended refe rence rangeRandom Glucose Reference Range is dependent on time and content of last meal. Glucose of more than 200 mg/dL in a nonstressed, ambulatory subject supports the diagnosis of Diabetes Mellitus. Serum or plasma potassium me asurement (moles/volume)Ordered By: Roberto Whittaker on 08-18-2022 Potassium [Moles/Vol] 3.6 mmol/L 3.5-5.1 [facility] Serum or plasma sodium measu rement (moles/volume)Ordered By: Roberto Whittaker on 08-18-2022 Sodium [Moles/Vol] 138 mmol/L 136-146 [facility] Serum or plasma total biliru bin measurement (mass/volume)Ordered By: Roberto Whittaker on 08-18-2022 Bilirubin [Mass/Vol] 0.8 mg/dL 0.3-1.2 [facility] Urea nitrogen [Mass/volume] in Serum or PlasmaOrdered By: Roberto Whittaker on 08-18-2022 Urea nitrogen [Mass/Vol] 10 mg/dL 9-23 [facility] WBC Auto (Bld) [#/Vol]Ordere d By: Roberto Whittaker on 08-18-2022 WBC (Bld) [#/Vol] 6.9 10*3/uL 3.8-11.6 [facility] Amphetamine Screen Ql (U)Ord ered By: Attila Nelson on 07-27-2022 Amphetamines Ql (U) Negative Negative [facility] Automated erythrocytes count in urine sediment (number/area)Ordered By: Attila Nelson on 07-27-2022 RBC Auto (Urine sed) [#/Area] 50-100 [HPF] 0-4 [facility] Automated leukocytes count i n urine sediment (number/area)Ordered By: Attila Nelson on 07-27-2022 WBC Auto (Urine sed) [#/Area] 3-4 [HPF] 0-4 [facility] Barbiturates [Presence] in U rineOrdered By: Attila Nelson on 07-27-2022 Barbiturates Ql (U) Negative Negative [facility] Basophils Auto (Bld) [#/Vol] Ordered By: Attila Nelson on 07-27-2022 Basophils (Bld) [#/Vol] 0.0 10*3/uL 0.0-0.2 [facility] Basophils/100 WBC Auto (Bld) Ordered By: Attila Nelson on 07-27-2022 Basophils/100 WBC (Bld) 0.4 % . [facility] Benzodiazepines [Presence] i n UrineOrdered By: Attila Nelson on 07-27-2022 Benzodiazepines Ql (U) Negative [facility] Bil[facility] Test strip Ql (U)O rdered By: Attila Nelson on 07-27-2022 Bilirubin Ql (U) Negative Negative [facility] Body fluid albumin measureme nt (mass/volume)Ordered By: Attila Nelson on 07-27-2022 Albumin (Body fld) [Mass/Vol] 4.5 g/dL 3.2-5.5 [facility] Cannabinoids [Presence] in U rine by Screen methodOrdered By: Attila Nelson on 07-27-2022 Cannabinoids Screen Ql (U) Positive Negative [facility] Comment on above: These are unconfirme d results and should not be used for legal purposes. Drug Cut-Off Concentration: AMPH 1000 ng/mL DOMINIQUE 200 ng/mL BRICE 200 ng/mL COCM 300 ng/mL OP 300 ng/mL PCP 25 ng/mL THC 20 ng/mL Color Auto (U)Ordered By: Cezar Nelson on 07-27-2022 Color (U) Yellow Yellow [facility] Creatinine and Glomerular fi ltration rate.predicted panel (S/P/Bld)Ordered By: Attila Nelson on 07-27-2022 Creatinine [Mass/Vol] 0.78 mg/dL 0.44-1.03 [facility] Eosinophils Auto (Bld) [#/Vo l]Ordered By: Attila Nelson on 07-27-2022 Eosinophils (Bld) [#/Vol] 0.0 10*3/uL 0.0-0.45 [facility] Eosinophils/100 WBC Auto (Bl d)Ordered By: Attila Nelson on 07-27-2022 Eosinophils/100 WBC (Bld) 0.5 % . [facility] Erythrocyte distribution wid th Auto (RBC) [Ratio]Ordered By: Attila Nelson on 07-27-2022 Erythrocyte distribution width (RBC) [Ratio] 13.7 % 11.9-15.3 [facility] Estimated glomerular filtrat ion rate (GFR) non- AmericanOrdered By: Attila Nelson on 07-27-2022 GFR/1.73 sq M.predicted among non-blacks MDRD (S/P/Bld) [Vol rate/Area] > 60 mL/Min [facility] Globulin Calc (S) [Mass/Vol] Ordered By: Attila Nelson on 07-27-2022 Globulin (S) [Mass/Vol] 3.1 g/dL [facility] HCG ( test) IA.rapi d Ql (U)Ordered By: Attila Nelson on 07-27-2022 HCG ( test) Ql (U) Negative [facility] Hematocrit Auto (Bld) [Volum e fraction]Ordered By: Attila Nelson on 07-27-2022 Hematocrit (Bld) [Volume fraction] 40.5 % 34.0-46.4 [facility] Hemoglobin [Mass/volume] in BloodOrdered By: Attila Nelson on 07-27-2022 Hemoglobin (Bld) [Mass/Vol] 13.7 g/dL 11.8-15.4 [facility] Ketones Auto test strip (U) [Mass/Vol]Ordered By: Attila Nelson on 07-27-2022 Ketones (U) [Mass/Vol] Negative [facility] Ordered By: Attila Nelson on 07-27-2022 Opiates Ql (U) Negative Negative [facility] Laboratory - UrinalysisOrder ed By: Attila Nelson on 07-27-2022 Hyaline casts LM Ql (Urine sed) 0-8 [LPF] 0-8 [facility] Leukocytes [#/volume] correc manjula for nucleated erythrocytes in Blood by Automated counOrdered By: Attila Nelson on 07-27-2022 WBC corrected for nucl RBC Auto (Bld) [#/Vol] 6.8 10*3/uL 3.8-11.6 [facility] Lymphocytes Auto (Bld) [#/Vo l]Ordered By: Attila Nelson on 07-27-2022 Lymphocytes (Bld) [#/Vol] 2.9 10*3/uL 1.00-4.8 [facility] Lymphocytes/100 WBC Auto (Bl d)Ordered By: Attila Nelson on 07-27-2022 Lymphocytes/100 WBC (Bld) 42.2 % . [facility] MCH Auto (RBC) [Entitic mass ]Ordered By: Attila Nelson on 07-27-2022 MCH (RBC) [Entitic mass] 29.6 pg 24.7-34.3 [facility] MCHC Auto (RBC) [Mass/Vol]Or dered By: Attila Nelson on 07-27-2022 MCHC (RBC) [Mass/Vol] 33.8 g/dL 32.0-35.0 [facility] MCV Auto (RBC) [Entitic vol] Ordered By: Attila Nelson on 07-27-2022 MCV (RBC) [Entitic vol] 87.6 fL 80-100 [facility] Monocyte distribution width [Entitic volume] in Blood by AutomatedOrdered By: Attila Nelson on 07-27-2022 Monocyte distribution width Auto (Bld) [Entitic vol] 17.82 % 0.00-20.00 [facility] Monocytes Auto (Bld) [#/Vol] Ordered By: Attila Nelson on 07-27-2022 Monocytes (Bld) [#/Vol] 0.4 10*3/uL 0.0-0.8 [facility] Monocytes/100 WBC Auto (Bld) Ordered By: Attila Nelson on 07-27-2022 Monocytes/100 WBC (Bld) 5.7 % . [facility] Neutrophils Auto (Bld) [#/Vo l]Ordered By: Attila Nelson on 07-27-2022 Neutrophils (Bld) [#/Vol] 3.4 10*3/uL 1.8-7.7 [facility] Neutrophils/100 WBC Auto (Bl d)Ordered By: Attila Nelson on 07-27-2022 Neutrophils/100 WBC (Bld) 51.2 % . [facility] Nitrite Test strip Ql (U)Ord ered By: Attila Nelson on 07-27-2022 Nitrite Ql (U) Negative Negative [facility] No Panel InformationOrdered By: Attila Nelson on 07-27-2022 Estimated GFR () > 60 mL/Min [facility] Comment on above: GFR estimated refere nce range: According to KDOQI guidelines, <60 ml/min/1.73m2 is sufficient to diagnose a patient with chronic kidney disease. Pharmacy Creatinine Clearance (Chem 85.01 [facility] Nucleated erythrocytes [Pres ence] in Blood by Automated countOrdered By: Attila Nelson on 07-27-2022 Nucleated RBC Auto Ql (Bld) 0.2 /100{WBC} 0-0.5 [facility] Phencyclidine Screen Ql (U)O rdered By: Attila Nelson on 07-27-2022 Phencyclidine Ql (U) Negative Negative [facility] Platelet mean volume Auto (B ld) [Entitic vol]Ordered By: Attila Nelson on 07-27-2022 Platelet mean volume (Bld) [Entitic vol] 8.3 fL 6.3-10.7 [facility] Platelets Auto (Bld) [#/Vol] Ordered By: Attila Nelson on 07-27-2022 Platelets (Bld) [#/Vol] 278 10*3/uL 150-450 [facility] Prolactin [Mass/volume] in S alexis or PlasmaOrdered By: Attila Nelson on 07-27-2022 Prolactin [Mass/Vol] 20.59 ng/mL 3.34-26.72 [facility] Protein Auto test strip (U) [Mass/Vol]Ordered By: Attila Nelson on 07-27-2022 Protein (U) [Mass/Vol] Trace mg/dL Negative [facility] Protein [Mass/volume] in Ser um or PlasmaOrdered By: Attila Nelson on 07-27-2022 Protein [Mass/Vol] 7.6 g/dL 6.1-7.9 [facility] RBC Auto (Bld) [#/Vol]Ordere d By: Attila Nelson on 07-27-2022 RBC (Bld) [#/Vol] 4.62 10*6/uL 3.60-5.00 [facility] Serum or plasma alanine white otransferase measurement without P-5'-P (enzymatic activiOrdered By: Attila Nelson on 07-27-2022 ALT No additional P-5'-P [Catalytic activity/Vol] 9 U/L 10-60 [facility] Serum or plasma albumin/glob ulin mass ratioOrdered By: Attila Nelson on 07-27-2022 Albumin/Globulin [Mass ratio] 1.5 {ratio} [facility] Serum or plasma alkaline ignacio sphatase measurement (enzymatic activity/volume)Ordered By: Attila Nelson on 07-27-2022 ALP [Catalytic activity/Vol] 49 U/L 32-92 [facility] Serum or plasma anion gap de terminationOrdered By: Attila Nelson on 07-27-2022 Anion gap [Moles/Vol] 16.6 mmol/L 6.0-15.0 [facility] Serum or plasma aspartate am inotransferase measurement (enzymatic activity/volume)Ordered By: Attila Nelson on 07-27-2022 AST [Catalytic activity/Vol] 20 U/L 10-42 [facility] Serum or plasma calcium randi urement (mass/volume)Ordered By: Attila Nelson on 07-27-2022 Calcium [Mass/Vol] 9.6 mg/dL 8.2-10.2 [facility] Serum or plasma chloride melonie surement (moles/volume)Ordered By: Attila Nelson on 07-27-2022 Chloride [Moles/Vol] 103 mmol/L 95-114 [facility] Serum or plasma glucose randi urement (mass/volume)Ordered By: Attila Nelson on 07-27-2022 Glucose [Mass/Vol] 107 mg/dL 70-100 [facility] Comment on above: ADA recommended refe rence rangeRandom Glucose Reference Range is dependent on time and content of last meal. Glucose of more than 200 mg/dL in a nonstressed, ambulatory subject supports the diagnosis of Diabetes Mellitus. Serum or plasma potassium me asurement (moles/volume)Ordered By: Attila Nelson on 07-27-2022 Potassium [Moles/Vol] 3.8 mmol/L 3.5-5.1 [facility] Serum or plasma sodium measu rement (moles/volume)Ordered By: Attila Nelson on 07-27-2022 Sodium [Moles/Vol] 141 mmol/L 136-146 [facility] Serum or plasma total biliru bin measurement (mass/volume)Ordered By: Attila Nelson on 07-27-2022 Bilirubin [Mass/Vol] 0.5 mg/dL 0.3-1.2 [facility] Serum or plasma total carbon dioxide measurement (moles/volume)Ordered By: Attila Nelson on 07-27-2022 CO2 [Moles/Vol] 25.2 mmol/L 22.0-30.0 [facility] Serum or plasma urea nitroge n measurement (mass/volume)Ordered By: Attila Nelson on 07-27-2022 Urea nitrogen [Mass/Vol] 5 mg/dL 9-23 [facility] Specific gravity Auto test s trip (U) [Rel density]Ordered By: Attila Nelson on 07-27-2022 Specific gravity (U) [Rel density] 1.022 1.001-1.03 0 [facility] Squamous epithelial cells de tection in urine sediment by light microscopyOrdered By: Attila Nelson on 07-27-2022 Epithelial cells.squamous LM Ql (Urine sed) 1-2 [HPF] 0-2 [facility] Urine bacteria detection by automated methodOrdered By: Attila Nelson on 07-27-2022 Bacteria Auto Ql (U) None seen None Seen [facility] Urine clarity by refractomet ry automatedOrdered By: Attila Nelson on 07-27-2022 Clarity Refractometry automated (U) Cloudy Clear [facility] Urine cocaine detectionOrder ed By: Attila Nelson on 07-27-2022 Cocaine Ql (U) Negative Negative [facility] Urine glucose measurement by automated test strip (mass/volume)Ordered By: Attila Nelson on 07-27-2022 Glucose Auto test strip (U) [Mass/Vol] Normal mg/dL Normal [facility] Urine hemoglobin detection b y automated test stripOrdered By: Attila Nelson on 07-27-2022 Hemoglobin Auto test strip Ql (U) 3+ Negative [facility] Urine leukocyte esterase det ection by automated test stripOrdered By: Attila Nelson on 07-27-2022 Leukocyte esterase Auto test strip Ql (U) 1+ Negative [facility] Urobilinogen Auto test strip (U) [Mass/Vol]Ordered By: Attila Nelson on 07-27-2022 Urobilinogen (U) [Mass/Vol] Normal mg/dL Normal [facility] WBC Auto (Bld) [#/Vol]Ordere d By: Attila Nelson on 07-27-2022 WBC (Bld) [#/Vol] 6.8 10*3/uL 3.8-11.6 [facility] pH Auto test strip (U)Ordere d By: Attila Nelson on 07-27-2022 pH (U) 7.0 [pH] 5.0-9.0 [facility] CBC AUTO DIFFon 06-12-2022 BASO # 0.0 103/ul Normal 0.0-0.1 [facility] Comment on above: Performed By: #### C DANIEL, HSTROPN #### [facility] [address] [place] [address] Dr. Jovanni Maya Basophils/100 WBC (Bld) 0.2 % Normal 0.2-2.0 [facility] Comment on above: Performed By: #### C DANIEL, HSTROPN #### [facility] [address] [place] [address] Dr. Jovanni Maya EO # 0.0 103/ul Normal 0.0-0.7 [facility] Comment on above: Performed By: #### C MP, HSTROPN #### [facility] [address] [place] [address] Dr. Jovanni Maya Eosinophils/100 WBC (Bld) 0.1 % Critically low 0.9-7.0 [facility] Comment on above: Performed By: #### C DANIEL, HSTROPN #### [facility] [address] [place] [address] Dr. Jovanni Maya Erythrocyte distribution width (RBC) [Ratio] 12.7 % Normal 11.0-15.0 [facility] Comment on above: Performed By: #### C MP, HSTROPN #### [facility] [address] [address] [address] Jovanni Maya Hematocrit (Bld) [Volume fraction] 38.2 % Normal 36.0-48.0 [facility] Comment on above: Performed By: #### C MP, HSTROPN #### [facility] [address] [address] [address] Jovanni Maya Hemoglobin (Bld) [Mass/Vol] 13.4 g/dL Normal 12.0-16.0 [facility] Comment on above: Performed By: #### C MP, HSTROPN #### [facility] [address] [place] [address] Dr. Jovanni Maya IG # 0.04 10e3/ul Critically high 0.00-0.03 [facility] Comment on above: Performed By: #### C MP, HSTROPN #### [facility] [address] [place] [address] Dr. Jovanni Maya IG % 0.3 % Normal 0.0-0.5 [facility] Comment on above: Performed By: #### C MP, HSTROPN #### [facility] [address] [address] [address] Jovanni Maya LYMPH # 1.6 103/ul Normal 1.2-3.8 [facility] Comment on above: Performed By: #### C MP, HSTROPN #### [facility] [address] [address] [address] Jovanni Maya Lymphocytes/100 WBC (Bld) 12.9 % Critically low 20.5-60.0 [facility] Comment on above: Performed By: #### C MP, HSTROPN #### [facility] [address] [address] [address] Jovanni Maya MANUAL DIFF REQ NO Normal [facility] Comment on above: Performed By: #### C MP, HSTROPN #### [facility] [address] [place] [address] Dr. Jovanni Maya MCH (RBC) [Entitic mass] 29.6 pg Normal 26.7-34.0 [facility] Comment on above: Performed By: #### C MP, HSTROPN #### [facility] [address] [place] [address] Dr. Jovanni Maya MCHC (RBC) [Mass/Vol] 35.1 g/dL Normal 29.9-35.2 [facility] Comment on above: Performed By: #### C MP, HSTROPN #### [facility] [address] [place] [address] Dr. Jovanni Maya MCV (RBC) [Entitic vol] 84.5 fL Normal 81.0-99.0 [facility] Comment on above: Performed By: #### C MP, HSTROPN #### [facility] [address] [place] [address] Dr. Jovanni Maya MONO # 0.6 103/ul Normal 0.3-0.8 [facility] Comment on above: Performed By: #### C MP, HSTROPN #### [facility] [address] [place] [address] Dr. Jovanni Maya Monocytes/100 WBC (Bld) 4.9 % Normal 1.7-12.0 [facility] Comment on above: Performed By: #### C MP, HSTROPN #### [facility] [address] [place] [address] Dr. Jovanni Maya NEUT # 10.4 103/ul Critically high 1.4-6.5 [facility] Comment on above: Performed By: #### C MP, HSTROPN #### [facility] [address] [place] [address] Dr. Jovanni Maya Neutrophils/100 WBC (Bld) 81.6 % Critically high 43.0-75.0 [facility] Comment on above: Performed By: #### C MP, HSTROPN #### [facility] [address] [place] [address] Dr. Jovanni Maya Platelet mean volume (Bld) [Entitic vol] 9.3 fL Critically low 9.5-13.5 [facility] Comment on above: Performed By: #### C MP, HSTROPN #### [facility] [address] [place], [place] [address] Dr. Jovanni Maya PLT 231 103/ul Normal 150-450 [facility] Comment on above: Performed By: #### C MP, HSTROPN #### [facility] [address] [place], [place] [address] Dr. Jovanni Maya RBC 4.52 106/ul Normal 4.20-5.40 [facility] Comment on above: Performed By: #### C MP, HSTROPN #### [facility] [address] [place], [place] [address] Dr. Jovanni Maya WBC 12.7 103/ul Critically high 4.0-11.0 [facility] Comment on above: Performed By: #### C MP, HSTROPN #### [facility] [address] [address] [address] HEAD WO CONon [...] LO TUTTLE Date: 2022-06-12 21:00 Normal [facility] DRUG SCREEN RAPID (URINE)on 06-12-2022 AMP Negative Normal NEGATIVE [facility] Comment on above: Performed By: #### P REG, ACETON #### [facility] [address] [place] [address] Dr. Jovanni Maya BAR Negative Normal NEGATIVE [facility] Comment on above: Performed By: #### P REG, ACETON #### [facility] [address] [place] [address] Dr. Jovanni Maya BUP Negative Normal NEGATIVE [facility] Comment on above: Performed By: #### P REG, ACETON #### [facility] [address] [place] [address] Dr. Jovanni Maya BZO Negative Normal NEGATIVE [facility] Comment on above: Performed By: #### P REG, ACETON #### [facility] [address] [place] [address] Dr. Jovanni Maya DARIEN Negative Normal NEGATIVE [facility] Comment on above: Performed By: #### P REG, ACETON #### [facility] [address] [place] [address] Dr. Jovanni Maya CUT-OFFS SEE BELOW Normal [facility] Comment on above: Result Comment: AMP [...] Performed By: #### P REG, ACETON #### [facility] [address] [place] [address] Dr. Jovanni Maya DRUG CUT HEADER DRUG CLASS TEST SYST EM CUT-OFF CONCENTRATIONS ARE FOLLOWS: Normal [facility] Comment on above: Performed By: #### P REG, ACETON #### [facility] [address] [place] [address] Dr. Jovanni Maya mAMP Negative Normal NEGATIVE [facility] Comment on above: Performed By: #### P REG, ACETON #### [facility] [address] [address] [address] Jovanni Maya MTD Negative Normal NEGATIVE [facility] Comment on above: Performed By: #### P REG, ACETON #### [facility] [address] [address] [address] Jovanni Maya OPI Positive Abnormal NEGATIVE [facility] Comment on above: Performed By: #### P REG, ACETON #### [facility] [address] [address] [address] Jovanni Maya OXY Negative Normal NEGATIVE [facility] Comment on above: Performed By: #### P REG, ACETON #### [facility] [address] [place] [address] Dr. Jovanni Maya PCP Negative Normal NEGATIVE [facility] Comment on above: Performed By: #### P REG, ACETON #### [facility] [address] [place] [address] Dr. Jovanni Maya PPX Negative Normal NEGATIVE [facility] Comment on above: Performed By: #### P REG, ACETON #### [facility] [address] [place] [address] Dr. Jovanni Maya TCA Negative Normal NEGATIVE [facility] Comment on above: Performed By: #### P REG, ACETON #### [facility] [address] [place] [address] Dr. Jovanni Maya THC Positive Abnormal NEGATIVE [facility] Comment on above: Performed By: #### P REG, ACETON #### [facility] [address] [place] [address] Dr. Jovanni Maya ER URINE PROFILEon 2 Bilirubin Ql (U) Negative Normal NEGATIVE [facility] Comment on above: Performed By: #### C MP, HSTROPN #### [facility] [address] [place] [address] Dr. Jovanni Maya Clarity (U) CLEAR Normal CLEAR [facility] Comment on above: Performed By: #### C MP, HSTROPN #### [facility] [address] [address] [address] Jovanni Maya Color (U) LT. YELLOW Normal YELLOW [facility] Comment on above: Performed By: #### C MP, HSTROPN #### [facility] [address] [address] [address] Jovanni ANTOINE A micrscopic examina tion will be performed if indicated. Normal [facility] Comment on above: Performed By: #### C MP, HSTROPN #### [facility] [address] [place] [address] Dr. Jovanni Maya Glucose Ql (U) Negative Normal NEGATIVE [facility] Comment on above: Performed By: #### C MP, HSTROPN #### [facility] [address] [place] [address] Dr. Jovanni Maya Hemoglobin Ql (U) Negative Normal NEGATIVE [facility] Comment on above: Performed By: #### C MP, HSTROPN #### [facility] [address] [place] [address] Dr. Jovanni Maya Ketones Ql (U) Negative Normal NEGATIVE [facility] Comment on above: Performed By: #### C MP, HSTROPN #### [facility] [address] [address] [address] Jovanni Maya LEUKOCYTES Negative Normal NEGATIVE [facility] Comment on above: Performed By: #### C MP, HSTROPN #### [facility] [address] [place] [address] Dr. Jovanni Maya Nitrite Ql (U) Negative Normal NEGATIVE [facility] Comment on above: Performed By: #### C MP, HSTROPN #### [facility] [address] [address] [address] Jovanni Maya pH (U) 8.5 [pH] Normal 5-9 [facility] Comment on above: Performed By: #### C MP, HSTROPN #### [facility] [address] [place] [address] Dr. Jovanni Maya SPEC GRAVITY 1.015 Normal 1.005-<=1. 025 [facility] Comment on above: Performed By: #### C MP, HSTROPN #### [facility] [address] [address] [address] Jovanni Maya UA PROTEIN Negative Normal NEGATIVE/ TRACE [facility] Comment on above: Performed By: #### C MP, HSTROPN #### [facility] [address] [address] [address] Jovanni Maya UR MICRO IND NOT INDICATED Normal [facility] Comment on above: Performed By: #### C MP, HSTROPN #### [facility] [address] [place] [address] Dr. Jovanni Maya Urobilinogen Qn (U) 0.2 {Carlos A'U}/dL Normal 0.2 - 1. 0 [facility] Comment on above: Performed By: #### C MP, HSTROPN #### [facility] [address] [place] [address] Dr. Jovanni Maya URon 06-12-2022 , QUAL Negative Normal NEGATIVE [facility] Comment on above: Performed By: #### C DANIEL, HSTROPN #### [facility] [address] [place] [address] Dr. Jovanni Maya PROF 14(COMP METB)on 022 Albumin [Mass/Vol] 4.1 g/dL Normal 3.4-5.0 [facility] Comment on above: Performed By: #### C MP, HSTROPN #### [facility] [address] [place] [address] Dr. Jovanni Maya Albumin/Globulin [Mass ratio] 1.2 {ratio} Normal [facility] Comment on above: Performed By: #### C MP, HSTROPN #### [facility] [address] [place] [address] Dr. Jovanni Maya ALP [Catalytic activity/Vol] 53 U/L Normal 46-116 [facility] Comment on above: Performed By: #### C MP, HSTROPN #### [facility] [address] [place] [address] Dr. Jovanni Maya ALT [Catalytic activity/Vol] 11 U/L Critically low 14-59 [facility] Comment on above: Performed By: #### C DANIEL, HSTROPN #### [facility] [address] [address] [address] Jovanni Maya Anion gap [Moles/Vol] 9.5 mmol/L Normal [facility] Comment on above: Performed By: #### C DANIEL, HSTROPN #### [facility] [address] [address] [address] Jovanni aMya AST [Catalytic activity/Vol] 21 U/L Normal 15-37 [facility] Comment on above: Performed By: #### C DANIEL, HSTROPN #### [facility] [address] [place] [address] Dr. Jovanni Maya Bilirubin [Mass/Vol] 0.3 mg/dL Normal 0.2-1.0 [facility] Comment on above: Performed By: #### C DANIEL, HSTROPN #### [facility] [address] [place] [address] Dr. Jovanni Maya Calcium [Mass/Vol] 8.7 mg/dL Normal 8.5-10.1 [facility] Comment on above: Performed By: #### C DANIEL, HSTROPN #### [facility] [address] [place] [address] Dr. Jovanni Maya Chloride [Moles/Vol] 104 mmol/L Normal 98-107 [facility] Comment on above: Performed By: #### C DANIEL, HSTROPN #### [facility] [address] [place] [address] Dr. Jovanni Maya CO2 [Moles/Vol] 28.0 mmol/L Normal 21.0-32.0 [facility] Comment on above: Performed By: #### C DANIEL, HSTROPN #### [facility] [address] [place] [address] Dr. Jovanni Maya Creatinine [Mass/Vol] 0.79 mg/dL Normal 0.55-1.02 [facility] Comment on above: Performed By: #### C DANIEL, HSTROPN #### [facility] [address] [address] [address] Jovanni Maya EGFR-AF ARMENIAN >60 Normal >=60 [facility] Comment on above: Performed By: #### C MP, HSTROPN #### [facility] [address] [address] [address] Jovanni Maya EGFR-NON AF ARMENIAN >60 Normal >=60 [facility] Comment on above: Performed By: #### C MP, HSTROPN #### [facility] [address] [address] [address] Jovanni Maya Globulin (S) [Mass/Vol] 3.5 g/dL Normal [facility] Comment on above: Performed By: #### C MP, HSTROPN #### [facility] [address] [address] [address] Jovanni Maya Glucose [Mass/Vol] 102 mg/dL Normal 74-106 [facility] Comment on above: Performed By: #### C MP, HSTROPN #### [facility] [address] [address] [address] Jovanni Maya Potassium [Moles/Vol] 3.5 mmol/L Normal 3.5-5.1 [facility] Comment on above: Performed By: #### C MP, HSTROPN #### [facility] [address] [address] [address] Jovanni Maya Protein [Mass/Vol] 7.6 g/dL Normal 6.4-8.2 [facility] Comment on above: Performed By: #### C MP, HSTROPN #### [facility] [address] [address] [address] Jovanni Maya Sodium [Moles/Vol] 138 mmol/L Normal 136-145 [facility] Comment on above: Performed By: #### C MP, HSTROPN #### [facility] [address] [address] [address] Jovanni Maya Urea nitrogen [Mass/Vol] 9.0 mg/dL Normal 7.0-18.0 [facility] Comment on above: Performed By: #### C DANIEL, HSTROPN #### [facility] [address] [place] [address] Dr. Jovanni Maya Urea nitrogen/Creatinine [Mass ratio] 11.4 mg/mg Normal [facility] Comment on above: Performed By: #### C MP, HSTROPN #### [facility] [address] [place] [address] Dr. Jovanni Maya CBC AUTO DIFFon 05-24-2022 BASO # 0.0 103/ul Normal 0.0-0.1 [facility] Comment on above: Performed By: #### C DANIEL, HSTROPN #### [facility] [address] [place] [address] Dr. Jovanni Maya Basophils/100 WBC (Bld) 0.1 % Critically low 0.2-2.0 [facility] Comment on above: Performed By: #### C DANIEL, HSTROPN #### [facility] [address] [place] [address] Dr. Jovanni Maya EO # 0.0 103/ul Normal 0.0-0.7 [facility] Comment on above: Performed By: #### C DANIEL, HSTROPN #### [facility] [address] [place] [address] Dr. Jovanni Maya Eosinophils/100 WBC (Bld) 0.1 % Critically low 0.9-7.0 [facility] Comment on above: Performed By: #### C DANIEL, HSTROPN #### [facility] [address] [place] [address] Dr. Jovanni Maya Erythrocyte distribution width (RBC) [Ratio] 13.1 % Normal 11.0-15.0 [facility] Comment on above: Performed By: #### C DANIEL, HSTROPN #### [facility] [address] [place] [address] Dr. Jovanni Maya Hematocrit (Bld) [Volume fraction] 37.2 % Normal 36.0-48.0 [facility] Comment on above: Performed By: #### C MP, HSTROPN #### [facility] [address] [address] [address] Jovanni Maya Hemoglobin (Bld) [Mass/Vol] 13.0 g/dL Normal 12.0-16.0 [facility] Comment on above: Performed By: #### C MP, HSTROPN #### [facility] [address] [address] [address] Jovanni Maya IG # 0.02 10e3/ul Normal 0.00-0.03 [facility] Comment on above: Performed By: #### C MP, HSTROPN #### [facility] [address] [place] [address] Dr. Jovanni Maya IG % 0.3 % Normal 0.0-0.5 [facility] Comment on above: Performed By: #### C MP, HSTROPN #### [facility] [address] [place] [address] Dr. Jovanni Maya LYMPH # 1.4 103/ul Normal 1.2-3.8 [facility] Comment on above: Performed By: #### C MP, HSTROPN #### [facility] [address] [place] [address] Dr. Jovanni Maya Lymphocytes/100 WBC (Bld) 20.7 % Normal 20.5-60.0 [facility] Comment on above: Performed By: #### C MP, HSTROPN #### [facility] [address] [place] [address] Dr. Jovanni Maya MANUAL DIFF REQ NO Normal [facility] Comment on above: Performed By: #### C MP, HSTROPN #### [facility] [address] [place] [address] Dr. Jovanni Maya MCH (RBC) [Entitic mass] 29.5 pg Normal 26.7-34.0 [facility] Comment on above: Performed By: #### C MP, HSTROPN #### [facility] [address] [place] [address] Dr. Jovanni Maya MCHC (RBC) [Mass/Vol] 34.9 g/dL Normal 29.9-35.2 [facility] Comment on above: Performed By: #### C MP, HSTROPN #### [facility] [address] [place] [address] Dr. Jovanni Maya MCV (RBC) [Entitic vol] 84.4 fL Normal 81.0-99.0 [facility] Comment on above: Performed By: #### C MP, HSTROPN #### [facility] [address] [place] [address] Dr. Jovanni Maya MONO # 0.5 103/ul Normal 0.3-0.8 [facility] Comment on above: Performed By: #### C MP, HSTROPN #### [facility] [address] [place] [address] Dr. Jovanni Maya Monocytes/100 WBC (Bld) 7.8 % Normal 1.7-12.0 [facility] Comment on above: Performed By: #### C MP, HSTROPN #### [facility] [address] [place] [address] Dr. Jovanni Maya NEUT # 4.8 103/ul Normal 1.4-6.5 [facility] Comment on above: Performed By: #### C MP, HSTROPN #### [facility] [address] [place] [address] Dr. Jovanni Maya Neutrophils/100 WBC (Bld) 71.0 % Normal 43.0-75.0 [facility] Comment on above: Performed By: #### C MP, HSTROPN #### [facility] [address] [place] [address] Dr. Jovanni Maya Platelet mean volume (Bld) [Entitic vol] 9.5 fL Normal 9.5-13.5 [facility] Comment on above: Performed By: #### C MP, HSTROPN #### [facility] [address] [place] [address] Dr. Jovanni Maya PLT 228 103/ul Normal 150-450 [facility] Comment on above: Performed By: #### C MP, HSTROPN #### [facility] [address] [address] [address] Jovanni Maya RBC 4.41 106/ul Normal 4.20-5.40 [facility] Comment on above: Performed By: #### C MP, HSTROPN #### [facility] [address] [address] [address] Jovanni Maya WBC 6.8 103/ul Normal 4.0-11.0 [facility] Comment on above: Performed By: #### C MP, HSTROPN #### [facility] [address] [place] [address] Dr. Jovanni Maya PROF 14(COMP METB)on 022 Albumin [Mass/Vol] 4.0 g/dL Normal 3.4-5.0 [facility] Comment on above: Performed By: #### C MP, HSTROPN #### [facility] [address] [place] [address] Dr. Jovanni Maya Albumin/Globulin [Mass ratio] 9.3 {ratio} Normal [facility] Comment on above: Performed By: #### C MP, HSTROPN #### [facility] [address] [place] [address] Dr. Jovanni Maya ALP [Catalytic activity/Vol] 56 U/L Normal 46-116 [facility] [facility] Comment on above: Performed By: #### C MP, HSTROPN #### [facility] [address] [place] [address] Dr. Jovanni Maya ALT [Catalytic activity/Vol] 8 U/L Critically low 14-59 [facility] Comment on above: Performed By: #### C MP, HSTROPN #### [facility] [address] [address] [address] Jovanni Maya Anion gap [Moles/Vol] 9.3 mmol/L Normal [facility] Comment on above: Performed By: #### C MP, HSTROPN #### [facility] [address] [place] [address] Dr. Jovanni Maya AST [Catalytic activity/Vol] 12 U/L Critically low 15-37 [facility] Comment on above: Performed By: #### C MP, HSTROPN #### [facility] [address] [address] [address] Jovanni Maya Bilirubin [Mass/Vol] 0.3 mg/dL Normal 0.2-1.0 [facility] Comment on above: Performed By: #### C MP, HSTROPN #### [facility] [address] [place] [address] Dr. Jovanni Maya Calcium [Mass/Vol] 8.6 mg/dL Normal 8.5-10.1 [facility] Comment on above: Performed By: #### C MP, HSTROPN #### [facility] [address] [place] [address] Dr. Jovanni Maya Chloride [Moles/Vol] 104 mmol/L Normal 98-107 [facility] Comment on above: Performed By: #### C MP, HSTROPN #### [facility] [address] [place] [address] Dr. Jovanni Maya CO2 [Moles/Vol] 28.1 mmol/L Normal 21.0-32.0 [facility] Comment on above: Performed By: #### C MP, HSTROPN #### [facility] [address] [place] [address] Dr. Jovanni Maya Creatinine [Mass/Vol] 0.71 mg/dL Normal 0.55-1.02 [facility] Comment on above: Performed By: #### C MP, HSTROPN #### [facility] [address] [place] [address] Dr. Jovanni Maya EGFR-AF ARMENIAN >60 Normal >=60 [facility] Comment on above: Performed By: #### C MP, HSTROPN #### [facility] [address] [place] [address] Dr. Jovanni Maya EGFR-NON AF ARMENIAN >60 Normal >=60 [facility] Comment on above: Performed By: #### C MP, HSTROPN #### [facility] [address] [place] [address] Dr. Jovanni Maya Globulin (S) [Mass/Vol] 3.4 g/dL Normal [facility] Comment on above: Performed By: #### C MP, HSTROPN #### [facility] [address] [address] [address] Jovanni Maya Glucose [Mass/Vol] 109 mg/dL Critically high 74-106 [facility] Comment on above: Performed By: #### C DANIEL, HSTROPN #### [facility] [address] [place] [address] Dr. Jovanni Maya Potassium [Moles/Vol] 3.4 mmol/L Critically low 3.5-5.1 [facility] Comment on above: Performed By: #### C DANIEL, HSTROPN #### [facility] [address] [place] [address] Dr. Jovanni Maya Protein [Mass/Vol] 7.4 g/dL Normal 6.4-8.2 [facility] Comment on above: Performed By: #### C DANIEL, HSTROPN #### [facility] [address] [place] [address] Dr. Jovanni Maya Sodium [Moles/Vol] 138 mmol/L Normal 136-145 [facility] Comment on above: Performed By: #### C DANIEL, HSTROPN #### [facility] [address] [place] [address] Dr. Jovanni Maya Urea nitrogen [Mass/Vol] 12.0 mg/dL Normal 7.0-18.0 [facility] Comment on above: Performed By: #### C MP, HSTROPN #### [facility] [address] [place] [address] Dr. Jovanni Maya Urea nitrogen/Creatinine [Mass ratio] 16.9 mg/mg Normal [facility] Comment on above: Performed By: #### C MP, HSTROPN #### [facility] [address] [place] [address] Dr. Jovanni Maya Basophils Auto (Bld) [#/Vol] Ordered By: Aman Cortes on 05-18-2022 Basophils (Bld) [#/Vol] 0.0 10*3/uL 0.0-0.2 [facility] Basophils/100 WBC Auto (Bld) Ordered By: Aman Cortes on 05-18-2022 Basophils/100 WBC (Bld) 0.3 % . [facility] Creatinine and Glomerular fi ltration rate.predicted panel (S/P/Bld)Ordered By: Aman Cortes on 05-18-2022 Creatinine [Mass/Vol] 0.74 mg/dL 0.44-1.03 [facility] Eosinophils Auto (Bld) [#/Vo l]Ordered By: Aman Cortes on 05-18-2022 Eosinophils (Bld) [#/Vol] 0.1 10*3/uL 0.0-0.45 [facility] Eosinophils/100 WBC Auto (Bl d)Ordered By: Aman Cortes on 05-18-2022 Eosinophils/100 WBC (Bld) 0.9 % . [facility] Erythrocyte distribution wid th Auto (RBC) [Ratio]Ordered By: Aman Cortes on 05-18-2022 Erythrocyte distribution width (RBC) [Ratio] 14.5 % 11.9-15.3 [facility] Estimated glomerular filtrat ion rate (GFR) non- AmericanOrdered By: Aman Cortes on 05-18-2022 GFR/1.73 sq M.predicted among non-blacks MDRD (S/P/Bld) [Vol rate/Area] > 60 mL/Min [facility] Hematocrit Auto (Bld) [Volum e fraction]Ordered By: Aman Cortes on 05-18-2022 Hematocrit (Bld) [Volume fraction] 40.4 % 34.0-46.4 [facility] Hemoglobin [Mass/volume] in BloodOrdered By: Aman Cortes on 05-18-2022 Hemoglobin (Bld) [Mass/Vol] 13.0 g/dL 11.8-15.4 [facility] - Hematology and Cell countsOrdered By: Aman Cortes on 05-18-2022 Nucleated RBC/100 WBC (Bld) [Ratio] 0.1 % 0-0.5 [facility] Leukocytes [#/volume] in Blo od by Automated countOrdered By: Aman Cortes on 05-18-2022 WBC (Bld) [#/Vol] 5.6 10*3/uL 4.5-11.0 [facility] Lymphocytes Auto (Bld) [#/Vo l]Ordered By: Aman Cortes on 05-18-2022 Lymphocytes (Bld) [#/Vol] 2.0 10*3/uL 1.00-4.8 [facility] Lymphocytes/100 WBC Auto (Bl d)Ordered By: Aman Cortes on 05-18-2022 Lymphocytes/100 WBC (Bld) 36.8 % . [facility] MCH Auto (RBC) [Entitic mass ]Ordered By: Aman Cortes on 05-18-2022 MCH (RBC) [Entitic mass] 28.6 pg 24.7-34.3 [facility] MCHC Auto (RBC) [Mass/Vol]Or dered By: Aman Cortes on 05-18-2022 MCHC (RBC) [Mass/Vol] 32.3 g/dL 32.0-35.0 [facility] MCV Auto (RBC) [Entitic vol] Ordered By: Aman Cortes on 05-18-2022 MCV (RBC) [Entitic vol] 88.4 fL 80-100 [facility] Monocytes Auto (Bld) [#/Vol] Ordered By: Aman Cortes on 05-18-2022 Monocytes (Bld) [#/Vol] 0.4 10*3/uL 0.0-0.8 [facility] Monocytes/100 WBC Auto (Bld) Ordered By: Aman Cortes on 05-18-2022 Monocytes/100 WBC (Bld) 7.3 % . [facility] Neutrophils Auto (Bld) [#/Vo l]Ordered By: Aman Cotres on 05-18-2022 Neutrophils (Bld) [#/Vol] 3.0 10*3/uL 1.8-7.7 [facility] Neutrophils/100 WBC Auto (Bl d)Ordered By: Aman Cortes on 05-18-2022 Neutrophils/100 WBC (Bld) 54.7 % . [facility] No Panel InformationOrdered By: Aman Cortes on 05-18-2022 Estimated GFR () > 60 mL/Min [facility] Comment on above: GFR estimated refere nce range: According to KDOQI guidelines, <60 ml/min/1.73m2 is sufficient to diagnose a patient with chronic kidney disease. Pharmacy Creatinine Clearance (Chem 92.05 [facility] Platelet mean volume Auto (B ld) [Entitic vol]Ordered By: Aman Cortes on 05-18-2022 Platelet mean volume (Bld) [Entitic vol] 8.1 fL 6.3-10.7 [facility] Platelets Auto (Bld) [#/Vol] Ordered By: Aman Cortes on 05-18-2022 Platelets (Bld) [#/Vol] 268 10*3/uL 150-450 [facility] Prolactin [Mass/volume] in S alexis or PlasmaOrdered By: Aman Cortes on 05-18-2022 Prolactin [Mass/Vol] 8.64 ng/mL 3.34-26.72 [facility] RBC Auto (Bld) [#/Vol]Ordere d By: Aman Cortes on 05-18-2022 RBC (Bld) [#/Vol] 4.57 10*6/uL 3.60-5.00 [facility] Serum or plasma anion gap de terminationOrdered By: Aman Cortes on 05-18-2022 Anion gap [Moles/Vol] 10.1 mmol/L 6.0-15.0 [facility] Serum or plasma calcium randi urement (mass/volume)Ordered By: Aman Cortes on 05-18-2022 Calcium [Mass/Vol] 9.0 mg/dL 8.2-10.2 [facility] Serum or plasma chloride melonie surement (moles/volume)Ordered By: Aman Cortes on 05-18-2022 Chloride [Moles/Vol] 103 mmol/L 95-114 [facility] Serum or plasma glucose randi urement (mass/volume)Ordered By: Aman Cortes on 05-18-2022 Glucose [Mass/Vol] 110 mg/dL 70-100 [facility] Comment on above: ADA recommended refe rence rangeRandom Glucose Reference Range is dependent on time and content of last meal. Glucose of more than 200 mg/dL in a nonstressed, ambulatory subject supports the diagnosis of Diabetes Mellitus. Serum or plasma potassium me asurement (moles/volume)Ordered By: Aman Cortes on 05-18-2022 Potassium [Moles/Vol] 3.8 mmol/L 3.5-5.1 [facility] Serum or plasma sodium measu rement (moles/volume)Ordered By: Aman Cortes on 05-18-2022 Sodium [Moles/Vol] 138 mmol/L 136-146 [facility] Serum or plasma total carbon dioxide measurement (moles/volume)Ordered By: Aman Cortes on 05-18-2022 CO2 [Moles/Vol] 28.7 mmol/L 22.0-30.0 [facility] Serum or plasma urea nitroge n measurement (mass/volume)Ordered By: Aman Cortes on 05-18-2022 Urea nitrogen [Mass/Vol] 10 mg/dL 9-23 [facility] CBC AUTO DIFFon 05-15-2022 BASO # 0.0 103/ul Normal 0.0-0.1 [facility] Comment on above: Performed By: #### P REG, ACETON #### [facility] [address] [address] [address] Jovanni Maya Basophils/100 WBC (Bld) 0.3 % Normal 0.2-2.0 [facility] Comment on above: Performed By: #### P REG, ACETON #### [facility] [address] [address] [address] Jovanni Maya EO # 0.0 103/ul Normal 0.0-0.7 [facility] Comment on above: Performed By: #### P REG, ACETON #### [facility] [address] [address] [address] Jovanni Maya Eosinophils/100 WBC (Bld) 0.3 % Critically low 0.9-7.0 [facility] Comment on above: Performed By: #### P REG, ACETON #### [facility] [address] [address] [address] Jovanni Maya Erythrocyte distribution width (RBC) [Ratio] 13.1 % Normal 11.0-15.0 [facility] Comment on above: Performed By: #### P REG, ACETON #### [facility] [address] [place] [address] Dr. Jovanni Maya Hematocrit (Bld) [Volume fraction] 39.5 % Normal 36.0-48.0 [facility] Comment on above: Performed By: #### P REG, ACETON #### [facility] [address] [place] [address] Dr. Jovanni Maya Hemoglobin (Bld) [Mass/Vol] 13.5 g/dL Normal 12.0-16.0 [facility] Comment on above: Performed By: #### P REG, ACETON #### [facility] [address] [place] [address] Dr. Jovanni Maya IG # 0.04 10e3/ul Critically high 0.00-0.03 [facility] Comment on above: Performed By: #### P REG, ACETON #### [facility] [address] [place] [address] Dr. Jvoanni Maya IG % 0.4 % Normal 0.0-0.5 [facility] Comment on above: Performed By: #### P REG, ACETON #### [facility] [address] [place] [address] Dr. Jovanni Maya LYMPH # 1.9 103/ul Normal 1.2-3.8 [facility] Comment on above: Performed By: #### P REG, ACETON #### [facility] [address] [place] [address] Dr. Jovanni Maya Lymphocytes/100 WBC (Bld) 17.4 % Critically low 20.5-60.0 [facility] Comment on above: Performed By: #### P REG, ACETON #### [facility] [address] [place] [address] Dr. Jovanni Maya MANUAL DIFF REQ NO Normal [facility] Comment on above: Performed By: #### P REG, ACETON #### [facility] [address] [place] [address] Dr. Jovanni Maya MCH (RBC) [Entitic mass] 29.3 pg Normal 26.7-34.0 [facility] Comment on above: Performed By: #### P REG, ACETON #### [facility] [address] [place] [address] Dr. Jovanni Maya MCHC (RBC) [Mass/Vol] 34.2 g/dL Normal 29.9-35.2 [facility] Comment on above: Performed By: #### P REG, ACETON #### [facility] [address] [place] [address] Dr. Jovanni Maya MCV (RBC) [Entitic vol] 85.7 fL Normal 81.0-99.0 [facility] Comment on above: Performed By: #### P REG, ACETON #### [facility] [address] [place] [address] Dr. Jovanni Maya MONO # 0.6 103/ul Normal 0.3-0.8 [facility] Comment on above: Performed By: #### P REG, ACETON #### [facility] [address] [place] [address] Dr. Jovanni Maay Monocytes/100 WBC (Bld) 5.0 % Normal 1.7-12.0 [facility] Comment on above: Performed By: #### P REG, ACETON #### [facility] [address] [place] [address] Dr. Jovanni Maya NEUT # 8.4 103/ul Critically high 1.4-6.5 [facility] Comment on above: Performed By: #### P REG, ACETON #### [facility] [address] [place] [address] Dr. Jovanni Maya Neutrophils/100 WBC (Bld) 76.6 % Critically high 43.0-75.0 [facility] Comment on above: Performed By: #### P REG, ACETON #### [facility] [address] [place] [address] Dr. Jovanni Maya Platelet mean volume (Bld) [Entitic vol] 10.5 fL Normal 9.5-13.5 [facility] Comment on above: Performed By: #### P REG, ACETON #### [facility] [address] [place] [address] Dr. Jovanni Maya PLT 279 103/ul Normal 150-450 [facility] Comment on above: Performed By: #### P REG, ACETON #### [facility] [address] [place] [address] Dr. Jovanni Maya RBC 4.61 106/ul Normal 4.20-5.40 [facility] Comment on above: Performed By: #### P REG, ACETON #### [facility] [address] [place] [address] Dr. Jovanni Maya WBC 11.0 103/ul Normal 4.0-11.0 [facility] Comment on above: Performed By: #### P REG, ACETON #### [facility] [address] [place] [address] Dr. Jovanni Maya ER URINE PROFILEon 2 Bilirubin Ql (U) Negative Normal NEGATIVE [facility] Comment on above: Performed By: #### C MP, HSTROPN #### [facility] [address] [place] [address] Dr. Jovanni Maya Clarity (U) CLEAR Normal CLEAR [facility] Comment on above: Performed By: #### C MP, HSTROPN #### [facility] [address] [place] [address] Dr. Jovanni Maya Color (U) LT. YELLOW Normal YELLOW [facility] Comment on above: Performed By: #### C MP, HSTROPN #### [facility] [address] [place] [address] Dr. Jovanni Maya ERUAHD A micrscopic examina tion will be performed if indicated. Normal [facility] Comment on above: Performed By: #### C MP, HSTROPN #### [facility] [address] [place] [address] Dr. Jovanni Maya Glucose Ql (U) Negative Normal NEGATIVE [facility] Comment on above: Performed By: #### C MP, HSTROPN #### [facility] [address] [place] [address] Dr. Jovanni Maya Hemoglobin Ql (U) Negative Normal NEGATIVE [facility] Comment on above: Performed By: #### C MP, HSTROPN #### [facility] [address] [address] [address] Jovanni Maya Ketones Ql (U) Negative Normal NEGATIVE [facility] Comment on above: Performed By: #### C MP, HSTROPN #### [facility] [address] [address] [address] Jovanni Maya LEUKOCYTES Negative Normal NEGATIVE [facility] Comment on above: Performed By: #### C MP, HSTROPN #### [facility] [address] [address] [address] Jovanni Maya Nitrite Ql (U) Negative Normal NEGATIVE [facility] Comment on above: Performed By: #### C MP, HSTROPN #### [facility] [address] [place] [address] Dr. Jovanni Maya pH (U) 7.0 [pH] Normal 5-9 [facility] Comment on above: Performed By: #### C MP, HSTROPN #### [facility] [address] [address] [address] Jovanni Maya SPEC GRAVITY 1.010 Normal 1.005-<=1. 025 [facility] Comment on above: Performed By: #### C MP, HSTROPN #### [facility] [address] [place] [address] Dr. Jovanni Maya UA PROTEIN Negative Normal NEGATIVE/ TRACE [facility] Comment on above: Performed By: #### C MP, HSTROPN #### [facility] [address] [address] [address] Jovanni Maya UR MICRO IND NOT INDICATED Normal [facility] Comment on above: Performed By: #### C MP, HSTROPN #### [facility] [address] [place] [address] Dr. Jovanni Maya Urobilinogen Qn (U) 0.2 {Carlos A'U}/dL Normal 0.2 - 1. 0 [facility] Comment on above: Performed By: #### C MP, HSTROPN #### [facility] [address] [address] [address] Jovanni Maya PROF 14(COMP METB)on 022 Albumin [Mass/Vol] 3.6 g/dL Normal 3.4-5.0 [facility] Comment on above: Performed By: #### P REG, ACETON #### [facility] [address] [address] [address] Jovanni Maya Albumin/Globulin [Mass ratio] 1.2 {ratio} Normal [facility] Comment on above: Performed By: #### P REG, ACETON #### [facility] [address] [place] [address] Dr. Jovanni Maya ALP [Catalytic activity/Vol] 49 U/L Normal 46-116 [facility] Comment on above: Performed By: #### P REG, ACETON #### [facility] [address] [place] [address] Dr. Jovanni Maya ALT [Catalytic activity/Vol] 4 U/L Critically low 14-59 [facility] Comment on above: Performed By: #### P REG, ACETON #### [facility] [address] [place] [address] Dr. Jovanni Maya Anion gap [Moles/Vol] 9.0 mmol/L Normal [facility] Comment on above: Performed By: #### P REG, ACETON #### [facility] [address] [address] [address] Jovanni Maya AST [Catalytic activity/Vol] 10 U/L Critically low 15-37 [facility] Comment on above: Performed By: #### P REG, ACETON #### [facility] [address] [address] [address] Jovanni Maya Bilirubin [Mass/Vol] 0.4 mg/dL Normal 0.2-1.0 [facility] Comment on above: Performed By: #### P REG, ACETON #### [facility] [address] [place] [address] Dr. Jovanni Maya Calcium [Mass/Vol] 8.2 mg/dL Critically low 8.5-10.1 [facility] Comment on above: Performed By: #### P REG, ACETON #### [facility] [address] [place] [address] Dr. Jovanni Maya Chloride [Moles/Vol] 107 mmol/L Normal 98-107 [facility] Comment on above: Performed By: #### P REG, ACETON #### [facility] [address] [place] [address] Dr. Jovanni Maya CO2 [Moles/Vol] 25.8 mmol/L Normal 21.0-32.0 [facility] Comment on above: Performed By: #### P REG, ACETON #### [facility] [address] [place] [address] Dr. Jovanni Maya Creatinine [Mass/Vol] 0.73 mg/dL Normal 0.55-1.02 [facility] Comment on above: Performed By: #### P REG, ACETON #### [facility] [address] [place] [address] Dr. Jovanni Maya EGFR-AF ARMENIAN >60 Normal >=60 [facility] Comment on above: Performed By: #### P REG, ACETON #### [facility] [address] [place] [address] Dr. Jovanni Maya EGFR-NON AF ARMENIAN >60 Normal >=60 [facility] Comment on above: Performed By: #### P REG, ACETON #### [facility] [address] [place] [address] Dr. Jovanni Maya Globulin (S) [Mass/Vol] 3.0 g/dL Normal [facility] Comment on above: Performed By: #### P REG, ACETON #### [facility] [address] [place] [address] Dr. Jovanni Maya Glucose [Mass/Vol] 121 mg/dL Critically high 74-106 [facility] Comment on above: Performed By: #### P REG, ACETON #### [facility] [address] [place] [address] Dr. Jovanni Maya Potassium [Moles/Vol] 3.8 mmol/L Normal 3.5-5.1 [facility] Comment on above: Performed By: #### P REG, ACETON #### [facility] [address] [place] [address] Dr. Jovanni Maya Protein [Mass/Vol] 6.6 g/dL Normal 6.4-8.2 [facility] Comment on above: Performed By: #### P REG, ACETON #### [facility] [address] [address] [address] Jovanni Maya Sodium [Moles/Vol] 138 mmol/L Normal 136-145 [facility] Comment on above: Performed By: #### P REG, ACETON #### [facility] [address] [place] [address] Dr. Jovanni Maya Urea nitrogen [Mass/Vol] 9.0 mg/dL Normal 7.0-18.0 [facility] Comment on above: Performed By: #### P REG, ACETON #### [facility] [address] [place] [address] Dr. Jovanni Maya Urea nitrogen/Creatinine [Mass ratio] 12.3 mg/mg Normal [facility] Comment on above: Performed By: #### P REG, ACETON #### [facility] [address] [place] [address] Dr. Jovanni Maya Albumin [Mass/volume] in Ser um or PlasmaOrdered By: Som Fiore on 04-22-2022 Albumin [Mass/Vol] 4.1 g/dL 3.2-5.5 [facility] Amphetamine Screen Ql (U)Ord ered By: Som Fiore on 04-22-2022 Amphetamines Ql (U) Negative Negative [facility] Automated erythrocytes count in urine sediment (number/area)Ordered By: Som Fiore on 04-22-2022 RBC Auto (Urine sed) [#/Area] 5-9 [HPF] 0-4 [facility] Automated leukocytes count i n urine sediment (number/area)Ordered By: Som Fiore on 04-22-2022 WBC Auto (Urine sed) [#/Area] 1-2 [HPF] 0-4 [facility] Barbiturates [Presence] in U rineOrdered By: Som Fiore on 04-22-2022 Barbiturates Ql (U) Negative Negative [facility] Basophils Auto (Bld) [#/Vol] Ordered By: Som Fiore on 04-22-2022 Basophils (Bld) [#/Vol] 0.0 10*3/uL 0.0-0.2 [facility] Basophils/100 WBC Auto (Bld) Ordered By: Som Fiore on 04-22-2022 Basophils/100 WBC (Bld) 0.4 % . [facility] Benzodiazepines [Presence] i n UrineOrdered By: Som Fiore on 04-22-2022 Benzodiazepines Ql (U) Negative Negative Fi [facility] Bilirubin Test strip Ql (U)O rdered By: Som Fiore on 04-22-2022 Bilirubin Ql (U) Negative Negative [facility] Cannabinoids [Presence] in U rine by Screen methodOrdered By: Som Fiore on 04-22-2022 Cannabinoids Screen Ql (U) Positive Negative [facility] Comment on above: These are unconfirme d results and should not be used for legal purposes. Drug Cut-Off Concentration: AMPH 1000 ng/mL DOMINIQUE 200 ng/mL BRICE 200 ng/mL COCM 300 ng/mL OP 300 ng/mL PCP 25 ng/mL THC 20 ng/mL Color Auto (U)Ordered By: Giovanni Fiore on 04-22-2022 Color (U) Yellow Yellow [facility] Creatinine and Glomerular fi ltration rate.predicted panel (S/P/Bld)Ordered By: Som Fiore on 04-22-2022 Creatinine [Mass/Vol] 0.72 mg/dL 0.44-1.03 [facility] Eosinophils Auto (Bld) [#/Vo l]Ordered By: Som Fiore on 04-22-2022 Eosinophils (Bld) [#/Vol] 0.0 10*3/uL 0.0-0.45 [facility] Eosinophils/100 WBC Auto (Bl d)Ordered By: Som Fiore on 04-22-2022 Eosinophils/100 WBC (Bld) 0.6 % . [facility] Erythrocyte distribution wid th Auto (RBC) [Ratio]Ordered By: Som Fiore on 04-22-2022 Erythrocyte distribution width (RBC) [Ratio] 14.6 % 11.9-15.3 [facility] Estimated glomerular filtrat ion rate (GFR) non- AmericanOrdered By: Som Fiore on 04-22-2022 GFR/1.73 sq M.predicted among non-blacks MDRD (S/P/Bld) [Vol rate/Area] > 60 mL/Min [facility] Globulin Calc (S) [Mass/Vol] Ordered By: Som Fiore on 04-22-2022 Globulin (S) [Mass/Vol] 3.2 g/dL [facility] Hematocrit Auto (Bld) [Volum e fraction]Ordered By: Som Fiore on 04-22-2022 Hematocrit (Bld) [Volume fraction] 40.7 % 34.0-46.4 [facility] Hemoglobin [Mass/volume] in BloodOrdered By: Som Fiore on 04-22-2022 Hemoglobin (Bld) [Mass/Vol] 13.4 g/dL 11.8-15.4 [facility] Ketones Auto test strip (U) [Mass/Vol]Ordered By: Som Fiore on 04-22-2022 Ketones (U) [Mass/Vol] Negative Negative [facility] - Drug toxicology Ordered By: Som Fiore on 04-22-2022 Opiates Ql (U) Negative Negative [facility] Laboratory - Hematology and Cell countsOrdered By: Som Fiore on 04-22-2022 Nucleated RBC/100 WBC (Bld) [Ratio] 0.1 % 0-0.5 [facility] Laboratory - UrinalysisOrder ed By: Som Fiore on 04-22-2022 Hyaline casts LM Ql (Urine sed) 0-8 [LPF] 0-8 [facility] Leukocytes [#/volume] in Blo od by Automated countOrdered By: Som Fiore on 04-22-2022 WBC (Bld) [#/Vol] 7.2 10*3/uL 4.5-11.0 [facility] Lymphocytes Auto (Bld) [#/Vo l]Ordered By: Som Fiore on 10-27-2022 Lymphocytes (Bld) [#/Vol] 2.2 10*3/uL 1.00-4.8 [facility] Lymphocytes/100 WBC Auto (Bl d)Ordered By: Som Fiore on 04-22-2022 Lymphocytes/100 WBC (Bld) 30.1 % . [facility] MCH Auto (RBC) [Entitic mass ]Ordered By: Som Fiore on 04-22-2022 MCH (RBC) [Entitic mass] 28.8 pg 24.7-34.3 [facility] MCHC Auto (RBC) [Mass/Vol]Or dered By: Som Fiore on 04-22-2022 MCHC (RBC) [Mass/Vol] 32.9 g/dL 32.0-35.0 [facility] MCV Auto (RBC) [Entitic vol] Ordered By: Som Fiore on 04-22-2022 MCV (RBC) [Entitic vol] 87.4 fL 80-100 [facility] Monocytes Auto (Bld) [#/Vol] Ordered By: Som Fiore on 04-22-2022 Monocytes (Bld) [#/Vol] 0.5 10*3/uL 0.0-0.8 [facility] Monocytes/100 WBC Auto (Bld) Ordered By: Som Fiore on 04-22-2022 Monocytes/100 WBC (Bld) 7.1 % . [facility] Neutrophils Auto (Bld) [#/Vo l]Ordered By: Som Fiore on 04-22-2022 Neutrophils (Bld) [#/Vol] 4.4 10*3/uL 1.8-7.7 [facility] Neutrophils/100 WBC Auto (Bl d)Ordered By: Som Fiore on 04-22-2022 Neutrophils/100 WBC (Bld) 61.8 % . [facility] Nitrite Test strip Ql (U)Ord ered By: Som Fiore on 04-22-2022 Nitrite Ql (U) Negative Negative [facility] No Panel InformationOrdered By: Som Fiore on 04-22-2022 Estimated GFR () > 60 mL/Min [facility] Comment on above: GFR estimated refere nce range: According to KDOQI guidelines, <60 ml/min/1.73m2 is sufficient to diagnose a patient with chronic kidney disease. Pharmacy Creatinine Clearance (Chem 94.05 [facility] Phencyclidine Screen Ql (U)O rdered By: Som Fiore on 04-22-2022 Phencyclidine Ql (U) Negative Negative [facility] Platelet mean volume Auto (B ld) [Entitic vol]Ordered By: Som Fiore on 04-22-2022 Platelet mean volume (Bld) [Entitic vol] 8.2 fL 6.3-10.7 [facility] Platelets Auto (Bld) [#/Vol] Ordered By: Som Fiore on 04-22-2022 Platelets (Bld) [#/Vol] 268 10*3/uL 150-450 [facility] Protein Auto test strip (U) [Mass/Vol]Ordered By: Som Fiore on 04-22-2022 Protein (U) [Mass/Vol] Negative Negative [facility] Protein [Mass/volume] in Ser um or PlasmaOrdered By: Som Fiore on 04-22-2022 Protein [Mass/Vol] 7.3 g/dL 6.1-7.9 [facility] RBC Auto (Bld) [#/Vol]Ordere d By: Som Fiore on 04-22-2022 RBC (Bld) [#/Vol] 4.66 10*6/uL 3.60-5.00 [facility] Serum or plasma alanine white otransferase measurement without P-5'-P (enzymatic activiOrdered By: Som Fiore on 04-22-2022 ALT No additional P-5'-P [Catalytic activity/Vol] 10 U/L 10-60 [facility] Serum or plasma albumin/glob ulin mass ratioOrdered By: Som Fiore on 04-22-2022 Albumin/Globulin [Mass ratio] 1.3 {ratio} [facility] Serum or plasma alkaline ignacio sphatase measurement (enzymatic activity/volume)Ordered By: Som Fiore on 04-22-2022 ALP [Catalytic activity/Vol] 49 U/L 32-92 [facility] Serum or plasma anion gap de terminationOrdered By: Som Fiore on 04-22-2022 Anion gap [Moles/Vol] 11.7 mmol/L 6.0-15.0 [facility] Serum or plasma aspartate am inotransferase measurement (enzymatic activity/volume)Ordered By: Som Fiore on 04-22-2022 AST [Catalytic activity/Vol] 17 U/L [facility] Serum or plasma calcium randi urement (mass/volume)Ordered By: Som Fiore on 04-22-2022 Calcium [Mass/Vol] 9.4 mg/dL 8.2-10.2 [facility] Serum or plasma chloride melonie surement (moles/volume)Ordered By: Som Fiore on 04-22-2022 Chloride [Moles/Vol] 102 mmol/L 95-114 [facility] Serum or plasma glucose randi urement (mass/volume)Ordered By: Som Fiore on 04-22-2022 Glucose [Mass/Vol] 101 mg/dL 70-100 [facility] Comment on above: ADA recommended refe rence rangeRandom Glucose Reference Range is dependent on time and content of last meal. Glucose of more than 200 mg/dL in a nonstressed, ambulatory subject supports the diagnosis of Diabetes Mellitus. Serum or plasma potassium me asurement (moles/volume)Ordered By: Som Fiore on 04-22-2022 Potassium [Moles/Vol] 3.9 mmol/L 3.5-5.1 [facility] Serum or plasma sodium measu rement (moles/volume)Ordered By: Som Fiore on 04-22-2022 Sodium [Moles/Vol] 139 mmol/L 136-146 [facility] Serum or plasma total biliru bin measurement (mass/volume)Ordered By: Som Fiore on 04-22-2022 Bilirubin [Mass/Vol] 0.7 mg/dL 0.3-1.2 [facility] Serum or plasma total carbon dioxide measurement (moles/volume)Ordered By: Som Fiore on 04-22-2022 CO2 [Moles/Vol] 29.2 mmol/L 22.0-30.0 [facility] Serum or plasma urea nitroge n measurement (mass/volume)Ordered By: Som Fiore on 04-22-2022 Urea nitrogen [Mass/Vol] 6 mg/dL 03-19 [facility] Specific gravity Auto test s trip (U) [Rel density]Ordered By: Som Fiore on 04-22-2022 Specific gravity (U) [Rel density] 1.017 1.001-1.03 0 [facility] Squamous epithelial cells de tection in urine sediment by light microscopyOrdered By: Som Fiore on 04-22-2022 Epithelial cells.squamous LM Ql (Urine sed) 0-1 [HPF] 0-2 [facility] Urine bacteria detection by automated methodOrdered By: Som Fiore on 04-22-2022 Bacteria Auto Ql (U) None seen None Seen [facility] Urine clarity by refractomet ry automatedOrdered By: Som Fiore on 04-22-2022 Clarity Refractometry automated (U) Turbid Clear [facility] Urine cocaine detectionOrder ed By: Som Fiore on 04-22-2022 Cocaine Ql (U) Negative Negative [facility] Urine glucose measurement by automated test strip (mass/volume)Ordered By: Som Fiore on 04-22-2022 Glucose Auto test strip (U) [Mass/Vol] Normal mg/dL Normal [facility] Urine hemoglobin detection b y automated test stripOrdered By: Som Fiore on 04-22-2022 Hemoglobin Auto test strip Ql (U) 2+ Negative [facility] Urine leukocyte esterase det ection by automated test stripOrdered By: Som Fiore on 04-22-2022 Leukocyte esterase Auto test strip Ql (U) Negative Negative [facility] Urobilinogen Auto test strip (U) [Mass/Vol]Ordered By: Som Fiore on 04-22-2022 Urobilinogen (U) [Mass/Vol] Normal mg/dL Normal [facility] Yeast detection in urine sed iment by light microscopyOrdered By: Som Fiore on 04-22-2022 Yeast LM Ql (Urine sed) None seen [HPF] None Seen [facility] pH Auto test strip (U)Ordere d By: Som Fiore on 04-22-2022 pH (U) 7.0 [pH] 5.0-9.0 [facility] Urine culture routineOrdered By: Som Fiore on 04-07-2022 Bacteria identified Cx Nom (U) No Growth 2 Days [facility] Amphetamine Screen Ql (U)Ord ered By: Som Fiore on 04-05-2022 Amphetamines Ql (U) Negative Negative [facility] Automated erythrocytes count in urine sediment (number/area)Ordered By: Som Fiore on 04-05-2022 RBC Auto (Urine sed) [#/Area] 5-9 [HPF] 0-4 [facility] Automated leukocytes count i n urine sediment (number/area)Ordered By: Som Fiore on 04-05-2022 WBC Auto (Urine sed) [#/Area] 5-9 [HPF] 0-4 [facility] Barbiturates [Presence] in U rineOrdered By: Som Fiore on 04-05-2022 Barbiturates Ql (U) Negative Negative [facility] Basophils Auto (Bld) [#/Vol] Ordered By: Som Fiore on 04-05-2022 Basophils (Bld) [#/Vol] 0.0 10*3/uL 0.0-0.2 [facility] Basophils/100 WBC Auto (Bld) Ordered By: Som Fiore on 04-05-2022 Basophils/100 WBC (Bld) 0.5 % . [facility] Benzodiazepines [Presence] i n UrineOrdered By: Som Fiore on 04-05-2022 Benzodiazepines Ql (U) Negative Negative [facility] Bilirubin Test strip Ql (U)O rdered By: Som Fiore on 04-05-2022 Bilirubin Ql (U) Negative Negative [facility] Blood hemoglobin measurement (mass/volume)Ordered By: Som iFore on 04-05-2022 Hemoglobin (Bld) [Mass/Vol] 13.4 g/dL 11.8-15.4 [facility] Blood leukocytes automated c ount (number/volume)Ordered By: Som Fiore on 04-05-2022 WBC (Bld) [#/Vol] 6.5 10*3/uL 4.5-11.0 [facility] Cannabinoids [Presence] in U rine by Screen methodOrdered By: Som Fiore on 04-05-2022 Cannabinoids Screen Ql (U) Positive Negative [facility] Comment on above: These are unconfirme d results and should not be used for legal purposes. Drug Cut-Off Concentration: AMPH 1000 ng/mL DOMINIQUE 200 ng/mL BRICE 200 ng/mL COCM 300 ng/mL OP 300 ng/mL PCP 25 ng/mL THC 20 ng/mL Color Auto (U)Ordered By: Giovanni Fiore on 04-05-2022 Color (U) Yellow Yellow [facility] Creatinine and Glomerular fi ltration rate.predicted panel (S/P/Bld)Ordered By: Som Fiore on 04-05-2022 Creatinine [Mass/Vol] 0.73 mg/dL 0.44-1.03 [facility] Eosinophils Auto (Bld) [#/Vo l]Ordered By: Som Fiore on 04-05-2022 Eosinophils (Bld) [#/Vol] 0.0 10*3/uL 0.0-0.45 [facility] Eosinophils/100 WBC Auto (Bl d)Ordered By: Som Fiore on 04-05-2022 Eosinophils/100 WBC (Bld) 0.5 % . [facility] Erythrocyte distribution wid th Auto (RBC) [Ratio]Ordered By: Som Fiore on 04-05-2022 Erythrocyte distribution width (RBC) [Ratio] 14.2 % 11.9-15.3 [facility] Estimated glomerular filtrat ion rate (GFR) non- AmericanOrdered By: Som Fiore on 04-05-2022 GFR/1.73 sq M.predicted among non-blacks MDRD (S/P/Bld) [Vol rate/Area] > 60 mL/Min [facility] HCG ( test) IA.rapi d Ql (U)Ordered By: Som Fiore on 04-05-2022 HCG ( test) Ql (U) Negative [facility] Hematocrit Auto (Bld) [Volum e fraction]Ordered By: Som Fiore on 04-05-2022 Hematocrit (Bld) [Volume fraction] 40.4 % 34.0-46.4 [facility] Ketones Auto test strip (U) [Mass/Vol]Ordered By: Som Fiore on 04-05-2022 Ketones (U) [Mass/Vol] Negative [facility] Ordered By: Som Fiore on 04-05-2022 Opiates Ql (U) Negative Negative [facility] Laboratory - Hematology and Cell countsOrdered By: Som Fiore on 04-05-2022 Nucleated RBC/100 WBC (Bld) [Ratio] 0.1 % 0-0.5 [facility] - UrinalysisOrder ed By: Som Fiore on 04-05-2022 Hyaline casts LM Ql (Urine sed) 0-8 [LPF] 0-8 [facility] Lymphocytes Auto (Bld) [#/Vo l]Ordered By: Som Fiore on 04-05-2022 Lymphocytes (Bld) [#/Vol] 2.0 10*3/uL 1.00-4.8 [facility] Lymphocytes/100 WBC Auto (Bl d)Ordered By: Som Fiore on 04-05-2022 Lymphocytes/100 WBC (Bld) 30.0 % . [facility] MCH Auto (RBC) [Entitic mass ]Ordered By: Som Fiore on 04-05-2022 MCH (RBC) [Entitic mass] 28.8 pg 24.7-34.3 [facility] MCHC Auto (RBC) [Mass/Vol]Or dered By: Som Fiore on 04-05-2022 MCHC (RBC) [Mass/Vol] 33.2 g/dL 32.0-35.0 [facility] MCV Auto (RBC) [Entitic vol] Ordered By: Som Fiore on 04-05-2022 MCV (RBC) [Entitic vol] 86.6 fL 80-100 [facility] Monocytes Auto (Bld) [#/Vol] Ordered By: Som Fiore on 04-05-2022 Monocytes (Bld) [#/Vol] 0.5 10*3/uL 0.0-0.8 [facility] Monocytes/100 WBC Auto (Bld) Ordered By: Som Fiore on 04-05-2022 Monocytes/100 WBC (Bld) 7.0 % . [facility] Neutrophils Auto (Bld) [#/Vo l]Ordered By: Som Fiore on 04-05-2022 Neutrophils (Bld) [#/Vol] 4.0 10*3/uL 1.8-7.7 [facility] Neutrophils/100 WBC Auto (Bl d)Ordered By: Som Fiore on 04-05-2022 Neutrophils/100 WBC (Bld) 62.0 % . [facility] Nitrite Test strip Ql (U)Ord ered By: Som Fiore on 04-05-2022 Nitrite Ql (U) Negative Negative [facility] No Panel InformationOrdered By: Som Fiore on 04-05-2022 Estimated GFR () > 60 mL/Min [facility] Comment on above: GFR estimated refere nce range: According to KDOQI guidelines, <60 ml/min/1.73m2 is sufficient to diagnose a patient with chronic kidney disease. Pharmacy Creatinine Clearance (Chem 92.76 [facility] Phencyclidine Screen Ql (U)O rdered By: Som Fiore on 04-05-2022 Phencyclidine Ql (U) Negative Negative [facility] Platelet mean volume Auto (B ld) [Entitic vol]Ordered By: Som Fiore on 04-05-2022 Platelet mean volume (Bld) [Entitic vol] 7.8 fL 6.3-10.7 [facility] Platelets Auto (Bld) [#/Vol] Ordered By: Som Fiore on 04-05-2022 Platelets (Bld) [#/Vol] 278 10*3/uL 150-450 [facility] Protein Auto test strip (U) [Mass/Vol]Ordered By: Som Fiore on 04-05-2022 Protein (U) [Mass/Vol] Negative Negative [facility] RBC Auto (Bld) [#/Vol]Ordere d By: Som Fiore on 04-05-2022 RBC (Bld) [#/Vol] 4.66 10*6/uL 3.60-5.00 [facility] Serum or plasma anion gap de terminationOrdered By: Som Fiore on 04-05-2022 Anion gap [Moles/Vol] 14.4 mmol/L 6.0-15.0 [facility] Serum or plasma calcium randi urement (mass/volume)Ordered By: Som Fiore on 04-05-2022 Calcium [Mass/Vol] 9.5 mg/dL 8.2-10.2 [facility] Serum or plasma chloride melonie surement (moles/volume)Ordered By: Som Fiore on 04-05-2022 Chloride [Moles/Vol] 100 mmol/L 95-114 [facility] Serum or plasma glucose randi urement (mass/volume)Ordered By: Som Fiore on 04-05-2022 Glucose [Mass/Vol] 97 mg/dL 70-100 [facility] Comment on above: ADA recommended refe rence rangeRandom Glucose Reference Range is dependent on time and content of last meal. Glucose of more than 200 mg/dL in a nonstressed, ambulatory subject supports the diagnosis of Diabetes Mellitus. Serum or plasma potassium me asurement (moles/volume)Ordered By: Som Fiore on 04-05-2022 Potassium [Moles/Vol] 4.1 mmol/L 3.5-5.1 [facility] Serum or plasma sodium measu rement (moles/volume)Ordered By: Som Fiore on 04-05-2022 Sodium [Moles/Vol] 139 mmol/L 136-146 [facility] Serum or plasma total carbon dioxide measurement (moles/volume)Ordered By: Som Fiore on 04-05-2022 CO2 [Moles/Vol] 28.7 mmol/L 22.0-30.0 [facility] Serum or plasma urea nitroge n measurement (mass/volume)Ordered By: Som Fiore on 04-05-2022 Urea nitrogen [Mass/Vol] 7 mg/dL 9-23 [facility] Specific gravity Auto test s trip (U) [Rel density]Ordered By: Som Fiore on 04-05-2022 Specific gravity (U) [Rel density] 1.011 1.001-1.03 0 [facility] Squamous epithelial cells de tection in urine sediment by light microscopyOrdered By: Som Fiore on 04-05-2022 Epithelial cells.squamous LM Ql (Urine sed) 1-2 [HPF] 0-2 [facility] Urine bacteria detection by automated methodOrdered By: Som Fiore on 04-05-2022 Bacteria Auto Ql (U) None seen None Seen [facility] Urine clarity by refractomet ry automatedOrdered By: Som Fiore on 04-05-2022 Clarity Refractometry automated (U) Cloudy Clear [facility] Urine cocaine detectionOrder ed By: Som Fiore on 04-05-2022 Cocaine Ql (U) Negative Negative [facility] Urine glucose measurement by automated test strip (mass/volume)Ordered By: Som Fiore on 04-05-2022 Glucose Auto test strip (U) [Mass/Vol] Normal mg/dL Normal [facility] Urine hemoglobin detection b y automated test stripOrdered By: Som Fiore on 04-05-2022 Hemoglobin Auto test strip Ql (U) Trace Negative [facility] Urine leukocyte esterase det ection by automated test stripOrdered By: Som Fiore on 04-05-2022 Leukocyte esterase Auto test strip Ql (U) 1+ Negative [facility] Urobilinogen Auto test strip (U) [Mass/Vol]Ordered By: Som Fiore on 04-05-2022 Urobilinogen (U) [Mass/Vol] Normal mg/dL Normal [facility] pH Auto test strip (U)Ordere d By: Som Fiore on 04-05-2022 pH (U) 7.0 [pH] 5.0-9.0 [facility] Urine culture routineOrdered By: Pipe Jose on 04-01-2022 Bacteria identified Cx Nom (U) 2 Days [facility] Automated erythrocytes count in urine sediment (number/area)Ordered By: Pipe Jose on 03-30-2022 RBC Auto (Urine sed) [#/Area] 5-9 [HPF] 0-4 [facility] Automated leukocytes count i n urine sediment (number/area)Ordered By: Pipe Jose on 03-30-2022 WBC Auto (Urine sed) [#/Area] 5-9 [HPF] 0-4 [facility] Basophils Auto (Bld) [#/Vol] Ordered By: Pipe Jose on 03-30-2022 Basophils (Bld) [#/Vol] 0.0 10*3/uL 0.0-0.2 [facility] Basophils/100 WBC Auto (Bld) Ordered By: Pipe Jose on 03-30-2022 Basophils/100 WBC (Bld) 0.4 % . [facility] Bilirubin Test strip Ql (U)O rdered By: Pipe Jose on 03-30-2022 Bilirubin Ql (U) Negative Negative [facility] Blood hemoglobin measurement (mass/volume)Ordered By: Pipe Jose on 03-30-2022 Hemoglobin (Bld) [Mass/Vol] 14.6 g/dL 11.8-15.4 [facility] Blood leukocytes automated c ount (number/volume)Ordered By: Pipe Jose on 03-30-2022 WBC (Bld) [#/Vol] 7.6 10*3/uL 4.5-11.0 [facility] Color Auto (U)Ordered By: Sushma Jose on 03-30-2022 Color (U) Yellow Yellow [facility] Creatinine and Glomerular fi ltration rate.predicted panel (S/P/Bld)Ordered By: Pipe Jose on 03-30-2022 Creatinine [Mass/Vol] 0.80 mg/dL 0.44-1.03 [facility] Eosinophils Auto (Bld) [#/Vo l]Ordered By: Pipe Jose on 03-30-2022 Eosinophils (Bld) [#/Vol] 0.1 10*3/uL 0.0-0.45 [facility] Eosinophils/100 WBC Auto (Bl d)Ordered By: Pipe Jose on 03-30-2022 Eosinophils/100 WBC (Bld) 0.8 % . [facility] Erythrocyte distribution wid th Auto (RBC) [Ratio]Ordered By: Pipe Jose on 03-30-2022 Erythrocyte distribution width (RBC) [Ratio] 14.4 % 11.9-15.3 [facility] Estimated glomerular filtrat ion rate (GFR) non- AmericanOrdered By: Pipe Jose on 03-30-2022 GFR/1.73 sq M.predicted among non-blacks MDRD (S/P/Bld) [Vol rate/Area] > 60 mL/Min [facility] Hematocrit Auto (Bld) [Volum e fraction]Ordered By: Pipe Jose on 03-30-2022 Hematocrit (Bld) [Volume fraction] 43.8 % 34.0-46.4 [facility] Ketones Auto test strip (U) [Mass/Vol]Ordered By: Pipe Jose on 03-30-2022 Ketones (U) [Mass/Vol] Negative [facility] and Cell countsOrdered By: Pipe Jose on 03-30-2022 Nucleated RBC/100 WBC (Bld) [Ratio] 0.1 % 0-0.5 [facility] - UrinalysisOrder ed By: Pipe Jose on 03-30-2022 Hyaline casts LM Ql (Urine sed) 0-8 [LPF] 0-8 [facility] Lymphocytes Auto (Bld) [#/Vo l]Ordered By: Pipe Jose on 03-30-2022 Lymphocytes (Bld) [#/Vol] 2.4 10*3/uL 1.00-4.8 [facility] Lymphocytes/100 WBC Auto (Bl d)Ordered By: Pipe Jose on 03-30-2022 Lymphocytes/100 WBC (Bld) 31.6 % . [facility] MCH Auto (RBC) [Entitic mass ]Ordered By: Pipe Jose on 03-30-2022 MCH (RBC) [Entitic mass] 28.9 pg 24.7-34.3 [facility] MCHC Auto (RBC) [Mass/Vol]Or dered By: Pipe Jose on 03-30-2022 MCHC (RBC) [Mass/Vol] 33.4 g/dL 32.0-35.0 [facility] MCV Auto (RBC) [Entitic vol] Ordered By: Pipe Jose on 03-30-2022 MCV (RBC) [Entitic vol] 86.6 fL 80-100 [facility] Monocytes Auto (Bld) [#/Vol] Ordered By: Pipe Jose on 03-30-2022 Monocytes (Bld) [#/Vol] 0.5 10*3/uL 0.0-0.8 [facility] Monocytes/100 WBC Auto (Bld) Ordered By: Pipe Jose on 03-30-2022 Monocytes/100 WBC (Bld) 7.0 % . [facility] Neutrophils Auto (Bld) [#/Vo l]Ordered By: Pipe Jose on 03-30-2022 Neutrophils (Bld) [#/Vol] 4.6 10*3/uL 1.8-7.7 [facility] Neutrophils/100 WBC Auto (Bl d)Ordered By: Pipe Jose on 03-30-2022 Neutrophils/100 WBC (Bld) 60.2 % . [facility] Nitrite Test strip Ql (U)Ord ered By: Pipe Jose on 03-30-2022 Nitrite Ql (U) Negative Negative [facility] No Panel InformationOrdered By: Pipe Jose on 03-30-2022 Estimated GFR () > 60 mL/Min [facility] Comment on above: GFR estimated refere nce range: According to KDOQI guidelines, <60 ml/min/1.73m2 is sufficient to diagnose a patient with chronic kidney disease. Pharmacy Creatinine Clearance (Chem 84.65 [facility] Platelet mean volume Auto (B ld) [Entitic vol]Ordered By: Pipe Jose on 03-30-2022 Platelet mean volume (Bld) [Entitic vol] 8.4 fL 6.3-10.7 [facility] Platelets Auto (Bld) [#/Vol] Ordered By: Pipe Jose on 03-30-2022 Platelets (Bld) [#/Vol] 286 10*3/uL 150-450 [facility] Protein Auto test strip (U) [Mass/Vol]Ordered By: Pipe Jose on 03-30-2022 Protein (U) [Mass/Vol] Negative Negative [facility] RBC Auto (Bld) [#/Vol]Ordere d By: Pipe Jose on 03-30-2022 RBC (Bld) [#/Vol] 5.05 10*6/uL 3.60-5.00 [facility] Serum or plasma anion gap de terminationOrdered By: Pipe Jose on 03-30-2022 Anion gap [Moles/Vol] 15.0 mmol/L 6.0-15.0 [facility] Serum or plasma calcium randi urement (mass/volume)Ordered By: Pipe Jose on 03-30-2022 Calcium [Mass/Vol] 9.9 mg/dL 8.2-10.2 [facility] Serum or plasma chloride melonie surement (moles/volume)Ordered By: Pipe Jose on 03-30-2022 Chloride [Moles/Vol] 100 mmol/L 95-114 [facility] Serum or plasma glucose randi urement (mass/volume)Ordered By: Pipe Jose on 03-30-2022 Glucose [Mass/Vol] 104 mg/dL 70-100 [facility] Comment on above: ADA recommended refe rence rangeRandom Glucose Reference Range is dependent on time and content of last meal. Glucose of more than 200 mg/dL in a nonstressed, ambulatory subject supports the diagnosis of Diabetes Mellitus. Serum or plasma potassium me asurement (moles/volume)Ordered By: Pipe Jose on 03-30-2022 Potassium [Moles/Vol] 4.1 mmol/L 3.5-5.1 [facility] Serum or plasma sodium measu rement (moles/volume)Ordered By: Pipe Jose on 03-30-2022 Sodium [Moles/Vol] 138 mmol/L 136-146 [facility] Serum or plasma total carbon dioxide measurement (moles/volume)Ordered By: Pipe Jose on 03-30-2022 CO2 [Moles/Vol] 27.1 mmol/L 22.0-30.0 [facility] Serum or plasma urea nitroge n measurement (mass/volume)Ordered By: Pipe Jose on 03-30-2022 Urea nitrogen [Mass/Vol] 10 mg/dL 9-23 [facility] Specific gravity Auto test s trip (U) [Rel density]Ordered By: Pipe Jose on 03-30-2022 Specific gravity (U) [Rel density] 1.007 1.001-1.03 0 [facility] Squamous epithelial cells de tection in urine sediment by light microscopyOrdered By: Pipe Jose on 03-30-2022 Epithelial cells.squamous LM Ql (Urine sed) 3-4 [HPF] 0-2 [facility] Urine bacteria detection by automated methodOrdered By: Pipe Jose on 03-30-2022 Bacteria Auto Ql (U) 1+ None Seen [facility] Urine clarity by refractomet ry automatedOrdered By: Pipe Jose on 03-30-2022 Clarity Refractometry automated (U) Clear Clear [facility] Urine glucose measurement by automated test strip (mass/volume)Ordered By: Pipe Jose on 03-30-2022 Glucose Auto test strip (U) [Mass/Vol] Normal mg/dL Normal [facility] Urine hemoglobin detection b y automated test stripOrdered By: Pipe Jose on 03-30-2022 Hemoglobin Auto test strip Ql (U) Negative Negative [facility] Urine leukocyte esterase det ection by automated test stripOrdered By: Pipe Jose on 03-30-2022 Leukocyte esterase Auto test strip Ql (U) 1+ Negative [facility] Urobilinogen Auto test strip (U) [Mass/Vol]Ordered By: Pipe Jose on 03-30-2022 Urobilinogen (U) [Mass/Vol] Normal mg/dL Normal [facility] pH Auto test strip (U)Ordere d By: Pipe Jose on 03-30-2022 pH (U) 7.5 [pH] 5.0-9.0 [facility] Albumin [Mass/volume] in Ser um or PlasmaOrdered By: Los Mcnally on 03-19-2022 Albumin [Mass/Vol] 4.8 g/dL 3.2-5.5 [facility] Basophils Auto (Bld) [#/Vol] Ordered By: Los Mcnally on 03-19-2022 Basophils (Bld) [#/Vol] 0.0 10*3/uL 0.0-0.2 [facility] Basophils/100 WBC Auto (Bld) Ordered By: Los Mcnally on 03-19-2022 Basophils/100 WBC (Bld) 0.6 % . [facility] Blood hemoglobin measurement (mass/volume)Ordered By: Los Mcnally on 03-19-2022 Hemoglobin (Bld) [Mass/Vol] 14.3 g/dL 11.8-15.4 [facility] Blood leukocytes automated c ount (number/volume)Ordered By: Los Mcnally on 03-19-2022 WBC (Bld) [#/Vol] 7.5 10*3/uL 4.5-11.0 [facility] Creatinine and Glomerular fi ltration rate.predicted panel (S/P/Bld)Ordered By: Los Mcnally on 03-19-2022 Creatinine [Mass/Vol] 0.91 mg/dL 0.44-1.03 [facility] Eosinophils Auto (Bld) [#/Vo l]Ordered By: Los Mcnally on 03-19-2022 Eosinophils (Bld) [#/Vol] 0.1 10*3/uL 0.0-0.45 [facility] Eosinophils/100 WBC Auto (Bl d)Ordered By: Los Mcnally on 03-19-2022 Eosinophils/100 WBC (Bld) 1.4 % . [facility] Erythrocyte distribution wid th Auto (RBC) [Ratio]Ordered By: Los Mcnally on 03-19-2022 Erythrocyte distribution width (RBC) [Ratio] 14.9 % 11.9-15.3 [facility] Estimated glomerular filtrat ion rate (GFR) non- AmericanOrdered By: Los Mcnally on 03-19-2022 GFR/1.73 sq M.predicted among non-blacks MDRD (S/P/Bld) [Vol rate/Area] > 60 mL/Min [facility] Globulin Calc (S) [Mass/Vol] Ordered By: Los Mcnally on 03-19-2022 Globulin (S) [Mass/Vol] 3.6 g/dL [facility] Hematocrit Auto (Bld) [Volum e fraction]Ordered By: Los Mcnally on 03-19-2022 Hematocrit (Bld) [Volume fraction] 43.6 % 34.0-46.4 [facility] Laboratory - Hematology and Cell countsOrdered By: Los Mcnally on 03-19-2022 Nucleated RBC/100 WBC (Bld) [Ratio] 0.0 % 0-0.5 [facility] Lymphocytes Auto (Bld) [#/Vo l]Ordered By: Los Mcnally on 03-19-2022 Lymphocytes (Bld) [#/Vol] 2.6 10*3/uL 1.00-4.8 [facility] Lymphocytes/100 WBC Auto (Bl d)Ordered By: Los Mcnally on 03-19-2022 Lymphocytes/100 WBC (Bld) 34.0 % . [facility] MCH Auto (RBC) [Entitic mass ]Ordered By: Los Mcnally on 03-19-2022 MCH (RBC) [Entitic mass] 29.1 pg 24.7-34.3 [facility] MCHC Auto (RBC) [Mass/Vol]Or dered By: Los Mcnally on 03-19-2022 MCHC (RBC) [Mass/Vol] 32.8 g/dL 32.0-35.0 [facility] MCV Auto (RBC) [Entitic vol] Ordered By: Los Mcnally on 03-19-2022 MCV (RBC) [Entitic vol] 88.6 fL 80-100 [facility] Monocytes Auto (Bld) [#/Vol] Ordered By: Los Mcnally on 03-19-2022 Monocytes (Bld) [#/Vol] 0.5 10*3/uL 0.0-0.8 [facility] Monocytes/100 WBC Auto (Bld) Ordered By: Los Mcnally on 03-19-2022 Monocytes/100 WBC (Bld) 6.9 % . [facility] Neutrophils Auto (Bld) [#/Vo l]Ordered By: Los Mcnally on 03-19-2022 Neutrophils (Bld) [#/Vol] 4.3 10*3/uL 1.8-7.7 [facility] Neutrophils/100 WBC Auto (Bl d)Ordered By: Los Mcnally on 03-19-2022 Neutrophils/100 WBC (Bld) 57.1 % . [facility] No Panel InformationOrdered By: Los Mcnally on 03-19-2022 Estimated GFR () > 60 mL/Min [facility] Comment on above: GFR estimated refere nce range: According to KDOQI guidelines, <60 ml/min/1.73m2 is sufficient to diagnose a patient with chronic kidney disease. Pharmacy Creatinine Clearance (Chem 74.41 [facility] Platelet mean volume Auto (B ld) [Entitic vol]Ordered By: Los Mcnally on 03-19-2022 Platelet mean volume (Bld) [Entitic vol] 8.9 fL 6.3-10.7 [facility] Platelets Auto (Bld) [#/Vol] Ordered By: Los Mcnally on 03-19-2022 Platelets (Bld) [#/Vol] 266 10*3/uL 150-450 [facility] Prolactin [Mass/volume] in S alexis or PlasmaOrdered By: Los Mcnally on 03-19-2022 Prolactin [Mass/Vol] 18.55 ng/mL 3.34-26.72 [facility] Protein [Mass/volume] in Ser um or PlasmaOrdered By: Los Mcnally on 03-19-2022 Protein [Mass/Vol] 8.4 g/dL 6.1-7.9 [facility] RBC Auto (Bld) [#/Vol]Ordere d By: Los Mcnally on 03-19-2022 RBC (Bld) [#/Vol] 4.92 10*6/uL 3.60-5.00 [facility] Serum or plasma alanine white otransferase measurement without P-5'-P (enzymatic activiOrdered By: Los Mcnally on 03-19-2022 ALT No additional P-5'-P [Catalytic activity/Vol] 11 U/L 10-60 [facility] Serum or plasma albumin/glob ulin mass ratioOrdered By: Los Mcnally on 03-19-2022 Albumin/Globulin [Mass ratio] 1.3 {ratio} [facility] Serum or plasma alkaline ignacio sphatase measurement (enzymatic activity/volume)Ordered By: Los Mcnally on 03-19-2022 ALP [Catalytic activity/Vol] 51 U/L 32-92 [facility] Serum or plasma anion gap de terminationOrdered By: Los Mcnally on 03-19-2022 Anion gap [Moles/Vol] 17.7 mmol/L 6.0-15.0 [facility] Serum or plasma aspartate am inotransferase measurement (enzymatic activity/volume)Ordered By: Los Mcnally on 03-19-2022 AST [Catalytic activity/Vol] 22 U/L 10-42 [facility] Serum or plasma calcium randi urement (mass/volume)Ordered By: Los Mcnally on 03-19-2022 Calcium [Mass/Vol] 9.8 mg/dL 8.2-10.2 [facility] Serum or plasma chloride melonie surement (moles/volume)Ordered By: Los Mcnally on 03-19-2022 Chloride [Moles/Vol] 101 mmol/L 95-114 [facility] Serum or plasma glucose randi urement (mass/volume)Ordered By: Los Mcnally on 03-19-2022 Glucose [Mass/Vol] 83 mg/dL 70-100 [facility] Comment on above: ADA recommended refe [...] on 03-19-2022 Potassium [Moles/Vol] 3.7 mmol/L 3.5-5.1 [facility] Serum or plasma sodium measu rement (moles/volume)Ordered By: Los Mcnally on 03-19-2022 Sodium [Moles/Vol] 138 mmol/L 136-146 [facility] Serum or plasma total biliru bin measurement (mass/volume)Ordered By: Los Mcnally on 03-19-2022 Bilirubin [Mass/Vol] 0.7 mg/dL 0.3-1.2 [facility] Serum or plasma total carbon dioxide measurement (moles/volume)Ordered By: Los Mcnally on 03-19-2022 CO2 [Moles/Vol] 23.0 mmol/L 22.0-30.0 [facility] Serum or plasma urea nitroge n measurement (mass/volume)Ordered By: Los Mcnally on 03-19-2022 Urea nitrogen [Mass/Vol] 8 mg/dL 03-19 [facility] Albumin [Mass/volume] in Ser um or PlasmaOrdered By: Tommy Bowen on 02-25-2022 Albumin [Mass/Vol] 4.1 g/dL 3.2-5.5 [facility] Basophils Auto (Bld) [#/Vol] Ordered By: Tommy Bowen on 02-25-2022 Basophils (Bld) [#/Vol] 0.0 10*3/uL 0.0-0.2 [facility] Basophils/100 WBC Auto (Bld) Ordered By: Tommy Bowen on 02-25-2022 Basophils/100 WBC (Bld) 0.5 % . [facility] Blood hemoglobin measurement (mass/volume)Ordered By: Tommy Bowen on 02-25-2022 Hemoglobin (Bld) [Mass/Vol] 13.4 g/dL 11.8-15.4 [facility] Blood leukocytes automated c ount (number/volume)Ordered By: Tommy Bowen on 02-25-2022 WBC (Bld) [#/Vol] 8.0 10*3/uL 4.5-11.0 [facility] Creatinine and Glomerular fi ltration rate.predicted panel (S/P/Bld)Ordered By: Tommy Bowen on 02-25-2022 Creatinine [Mass/Vol] 0.75 mg/dL 0.44-1.03 [facility] Eosinophils Auto (Bld) [#/Vo l]Ordered By: Tommy Bowen on 02-25-2022 Eosinophils (Bld) [#/Vol] 0.1 10*3/uL 0.0-0.45 [facility] Eosinophils/100 WBC Auto (Bl d)Ordered By: Tommy Bowen on 02-25-2022 Eosinophils/100 WBC (Bld) 0.6 % . [facility] Erythrocyte distribution wid th Auto (RBC) [Ratio]Ordered By: Tommy Bowen on 02-25-2022 Erythrocyte distribution width (RBC) [Ratio] 14.2 % 11.9-15.3 [facility] Estimated glomerular filtrat ion rate (GFR) non- AmericanOrdered By: Tommy Bowen on 02-25-2022 GFR/1.73 sq M.predicted among non-blacks MDRD (S/P/Bld) [Vol rate/Area] > 60 mL/Min [facility] Globulin Calc (S) [Mass/Vol] Ordered By: Tommy Bowen on 02-25-2022 Globulin (S) [Mass/Vol] 3.2 g/dL [facility] Hematocrit Auto (Bld) [Volum e fraction]Ordered By: Tommy Bowen on 02-25-2022 Hematocrit (Bld) [Volume fraction] 41.0 % 34.0-46.4 [facility] Laboratory - Hematology and Cell countsOrdered By: Tommy Bowen on 02-25-2022 Nucleated RBC/100 WBC (Bld) [Ratio] 0.0 % 0-0.5 [facility] Lymphocytes Auto (Bld) [#/Vo l]Ordered By: Tommy Bowen on 02-25-2022 Lymphocytes (Bld) [#/Vol] 2.0 10*3/uL 1.00-4.8 [facility] Lymphocytes/100 WBC Auto (Bl d)Ordered By: Tommy Bowen on 02-25-2022 Lymphocytes/100 WBC (Bld) 25.6 % . [facility] MCH Auto (RBC) [Entitic mass ]Ordered By: Tommy Bowen on 02-25-2022 MCH (RBC) [Entitic mass] 28.7 pg 24.7-34.3 [facility] MCHC Auto (RBC) [Mass/Vol]Or dered By: Tommy Bowen on 02-25-2022 MCHC (RBC) [Mass/Vol] 32.7 g/dL 32.0-35.0 [facility] MCV Auto (RBC) [Entitic vol] Ordered By: Tommy Bowen on 02-25-2022 MCV (RBC) [Entitic vol] 87.8 fL 80-100 [facility] Monocytes Auto (Bld) [#/Vol] Ordered By: Tommy Bowen on 02-25-2022 Monocytes (Bld) [#/Vol] 0.6 10*3/uL 0.0-0.8 [facility] Monocytes/100 WBC Auto (Bld) Ordered By: Tommy Bowen on 02-25-2022 Monocytes/100 WBC (Bld) 7.4 % . [facility] Neutrophils Auto (Bld) [#/Vo l]Ordered By: Tommy Bowen on 02-25-2022 Neutrophils (Bld) [#/Vol] 5.2 10*3/uL 1.8-7.7 [facility] Neutrophils/100 WBC Auto (Bl d)Ordered By: Tommy Bowen on 02-25-2022 Neutrophils/100 WBC (Bld) 65.9 % . [facility] No Panel InformationOrdered By: Tommy Bowen on 02-25-2022 Estimated GFR () > 60 mL/Min [facility] Comment on above: GFR estimated refere nce range: According to KDOQI guidelines, <60 ml/min/1.73m2 is sufficient to diagnose a patient with chronic kidney disease. Pharmacy Creatinine Clearance (Chem 94.82 [facility] Platelet mean volume Auto (B ld) [Entitic vol]Ordered By: Tommy Bowen on 02-25-2022 Platelet mean volume (Bld) [Entitic vol] 8.1 fL 6.3-10.7 [facility] Platelets Auto (Bld) [#/Vol] Ordered By: Tommy Bowen on 02-25-2022 Platelets (Bld) [#/Vol] 260 10*3/uL 150-450 [facility] Protein [Mass/volume] in Ser um or PlasmaOrdered By: Tommy Bowen on 02-25-2022 Protein [Mass/Vol] 7.3 g/dL 6.1-7.9 [facility] RBC Auto (Bld) [#/Vol]Ordere d By: Tommy Bowen on 02-25-2022 RBC (Bld) [#/Vol] 4.67 10*6/uL 3.60-5.00 [facility] Serum or plasma alanine white otransferase measurement without P-5'-P (enzymatic activiOrdered By: Tommy Bowen on 02-25-2022 ALT No additional P-5'-P [Catalytic activity/Vol] 11 U/L 10-60 [facility] Serum or plasma albumin/glob ulin mass ratioOrdered By: Tommy Bowen on 02-25-2022 Albumin/Globulin [Mass ratio] 1.3 {ratio} [facility] Serum or plasma alkaline ignacio sphatase measurement (enzymatic activity/volume)Ordered By: Tommy Bowen on 02-25-2022 ALP [Catalytic activity/Vol] 52 U/L 32-92 [facility] Serum or plasma anion gap de terminationOrdered By: Tommy Bowen on 02-25-2022 Anion gap [Moles/Vol] 13.5 mmol/L 6.0-15.0 [facility] Serum or plasma aspartate am inotransferase measurement (enzymatic activity/volume)Ordered By: Tommy Bowen on 02-25-2022 AST [Catalytic activity/Vol] 18 U/L 10-42 [facility] Serum or plasma calcium randi urement (mass/volume)Ordered By: Tommy Bowen on 02-25-2022 Calcium [Mass/Vol] 9.6 mg/dL 8.2-10.2 [facility] Serum or plasma chloride melonie surement (moles/volume)Ordered By: Tommy Bowen on 02-25-2022 Chloride [Moles/Vol] 101 mmol/L 95-114 [facility] Serum or plasma glucose randi urement (mass/volume)Ordered By: Tommy Bowen on 02-25-2022 Glucose [Mass/Vol] 98 mg/dL 70-100 [facility] Comment on above: ADA recommended refe [...] on 02-25-2022 Potassium [Moles/Vol] 4.0 mmol/L 3.5-5.1 [facility] Serum or plasma sodium measu rement (moles/volume)Ordered By: Tommy Bowen on 02-25-2022 Sodium [Moles/Vol] 139 mmol/L 136-146 [facility] Serum or plasma total biliru bin measurement (mass/volume)Ordered By: Tommy Bowen on 02-25-2022 Bilirubin [Mass/Vol] 0.6 mg/dL 0.3-1.2 [facility] Serum or plasma total carbon dioxide measurement (moles/volume)Ordered By: Tommy Bowen on 02-25-2022 CO2 [Moles/Vol] 28.5 mmol/L 22.0-30.0 [facility] Serum or plasma urea nitroge n measurement (mass/volume)Ordered By: Tommy Bowen on 02-25-2022 Urea nitrogen [Mass/Vol] 7 mg/dL 9-23 [facility] CBC AUTO DIFFon 01-03-2022 BASO # 0.0 103/ul Normal 0.0-0.1 [facility] Comment on above: Performed By: #### C BC #### [facility] [address] [address] [address] Jovanni Maya Basophils/100 WBC (Bld) 0.2 % Normal 0.2-2.0 [facility] Comment on above: Performed By: #### C BC #### [facility] [address] [address] [address] Jovanni Maya EO # 0.0 103/ul Normal 0.0-0.7 [facility] Comment on above: Performed By: #### C BC #### [facility] [address] [address] [address] Jovanni Maya Eosinophils/100 WBC (Bld) 0.1 % Critically low 0.9-7.0 [facility] Comment on above: Performed By: #### C BC #### [facility] [address] [place] [address] Dr. Jovanni Maya Erythrocyte distribution width (RBC) [Ratio] 12.4 % Normal 11.0-15.0 [facility] Comment on above: Performed By: #### C BC #### [facility] [address] [place] [address] Dr. Jovanni Maya Hematocrit (Bld) [Volume fraction] 39.2 % Normal 36.0-48.0 [facility] Comment on above: Performed By: #### C BC #### [facility] [address] [place] [address] Dr. Jovanni Maya Hemoglobin (Bld) [Mass/Vol] 13.1 g/dL Normal 12.0-16.0 [facility] Comment on above: Performed By: #### C BC #### [facility] [address] [address] [address] Jovanni Maya IG # 0.05 10e3/ul Critically high 0.00-0.03 [facility] Comment on above: Performed By: #### C BC #### [facility] [address] [address] [address] Jovanni Maya IG % 0.3 % Normal 0.0-0.5 [facility] Comment on above: Performed By: #### C BC #### [facility] [address] [address] [address] Jovanni Maya LYMPH # 2.1 103/ul Normal 1.2-3.8 [facility] Comment on above: Performed By: #### C BC #### [facility] [address] [place] [address] Dr. Jovanni Maya Lymphocytes/100 WBC (Bld) 14.3 % Critically low 20.5-60.0 [facility] Comment on above: Performed By: #### C BC #### [facility] [address] [place] [address] Dr. Jovanni Maya MANUAL DIFF REQ NO Normal [facility] Comment on above: Performed By: #### C BC #### [facility] [address] [place] [address] Dr. Jovanni Maya MCH (RBC) [Entitic mass] 29.4 pg Normal 26.7-34.0 [facility] Comment on above: Performed By: #### C BC #### [facility] [address] [place] [address] Dr. Jovanni Maya MCHC (RBC) [Mass/Vol] 33.4 g/dL Normal 29.9-35.2 [facility] Comment on above: Performed By: #### C BC #### [facility] [address] [place] [address] Dr. Jovanni Maya MCV (RBC) [Entitic vol] 87.9 fL Normal 81.0-99.0 [facility] Comment on above: Performed By: #### C BC #### [facility] [address] [place] [address] Dr. Jovanni Maya MONO # 1.3 103/ul Critically high 0.3-0.8 [facility] Comment on above: Performed By: #### C BC #### [facility] [address] [place] [address] Dr. Jovanni Maya Monocytes/100 WBC (Bld) 8.4 % Normal 1.7-12.0 [facility] Comment on above: Performed By: #### C BC #### [facility] [address] [address] [address] Jovanni Maya NEUT # 11.4 103/ul Critically high 1.4-6.5 [facility] Comment on above: Performed By: #### C BC #### [facility] [address] [place] [address] Dr. Jovanni Maya Neutrophils/100 WBC (Bld) 76.7 % Critically high 43.0-75.0 [facility] Comment on above: Performed By: #### C BC #### [facility] [address] [place] [address] Dr. Jovanni Maya Platelet mean volume (Bld) [Entitic vol] 9.4 fL Critically low 9.5-13.5 [facility] Comment on above: Performed By: #### C BC #### [facility] [address] [place] [address] Dr. Jovanni Maya PLT 276 103/ul Normal 150-450 [facility] Comment on above: Performed By: #### C BC #### [facility] [address] [place] [address] Dr. Jovanni Maya RBC 4.46 106/ul Normal 4.20-5.40 [facility] Comment on above: Performed By: #### C BC #### [facility] [address] [place] [address] Dr. Jovanni Maya WBC 14.9 103/ul Critically high 4.0-11.0 [facility] Comment on above: Performed By: #### C BC #### [facility] [address] [place] [address] Dr. Jovanni Maya PROF CHEM 8 (BAS METB)on Anion gap [Moles/Vol] 14.2 mmol/L Normal [facility] Comment on above: Performed By: #### P REG, ACETON #### [facility] [address] [place] [address] Dr. Jovanni Maya Calcium [Mass/Vol] 9.3 mg/dL Normal 8.5-10.1 [facility] Comment on above: Performed By: #### P REG, ACETON #### [facility] [address] [address] [address] Jovanni Maya Chloride [Moles/Vol] 103 mmol/L Normal 98-107 [facility] Comment on above: Performed By: #### P REG, ACETON #### [facility] [address] [address] [address] Jovanni Maya CO2 [Moles/Vol] 26.6 mmol/L Normal 21.0-32.0 [facility] Comment on above: Performed By: #### P REG, ACETON #### [facility] [address] [address] [address] Jovanni Maya Creatinine [Mass/Vol] 0.80 mg/dL Normal 0.55-1.02 [facility] Comment on above: Performed By: #### P REG, ACETON #### [facility] [address] [address] [address] Jovanni Maya EGFR-AF ARMENIAN >60 Normal >=60 [facility] Comment on above: Performed By: #### P REG, ACETON #### [facility] [address] [address] [address] Jovanni Myaa EGFR-NON AF ARMENIAN >60 Normal >=60 [facility] Comment on above: Performed By: #### P REG, ACETON #### [facility] [address] [address] [address] Jovanni Maya Glucose [Mass/Vol] 118 mg/dL Critically high 74-106 [facility] Comment on above: Performed By: #### P REG, ACETON #### [facility] [address] [address] [address] Jovanni Maya Potassium [Moles/Vol] 3.8 mmol/L Normal 3.5-5.1 [facility] Comment on above: Performed By: #### P REG, ACETON #### [facility] [address] [address] [address] Jovanni Maya Sodium [Moles/Vol] 140 mmol/L Normal 136-145 [facility] Comment on above: Performed By: #### P REG, ACETON #### [facility] [address] [place] [address] Dr. Jovanni Maya Urea nitrogen [Mass/Vol] 12.0 mg/dL Normal 7.0-18.0 [facility] Comment on above: Performed By: #### P REG, ACETON #### [facility] [address] [place] [address] Dr. Jovanni Maya Urea nitrogen/Creatinine [Mass ratio] 15.0 mg/mg Normal [facility] Comment on above: Performed By: #### P REG, ACETON #### [facility] [address] [place] [address] Dr. Jovanni Maya XR CHEST 2 Von [...] FRED COLE Date: 2022-01-03 01:30 Normal [facility] CBC AUTO DIFFon 11-29-2021 BASO # 0.0 103/ul Normal 0.0-0.1 [facility] Comment on above: Performed By: #### C MP, HSTROPN #### [facility] [address] [place] [address] Dr. Jovanni Maya Basophils/100 WBC (Bld) 0.2 % Normal 0.2-2.0 [facility] Comment on above: Performed By: #### C MP, HSTROPN #### [facility] [address] [place] [address] Dr. Jovanni Maya EO # 0.2 103/ul Normal 0.0-0.7 [facility] Comment on above: Performed By: #### C MP HSTROPN #### [facility] [address] [place] [address] Dr. Jovanni Maya Eosinophils/100 WBC (Bld) 3.2 % Normal 0.9-7.0 [facility] Comment on above: Performed By: #### C MP, HSTROPN #### [facility] [address] [place] [address] Dr. Jovanni Maya Erythrocyte distribution width (RBC) [Ratio] 12.2 % Normal 11.0-15.0 [facility] Comment on above: Performed By: #### C MP, HSTROPN #### [facility] [address] [place] [address] Dr. Jovanni Maya Hematocrit (Bld) [Volume fraction] 34.3 % Critically low 36.0-48.0 [facility] [facility] Comment on above: Performed By: #### C MP, HSTROPN #### [facility] [address] [place] [address] Dr. Jovanni Maya Hemoglobin (Bld) [Mass/Vol] 11.4 g/dL Critically low 12.0-16.0 [facility] Comment on above: Performed By: #### C MP, HSTROPN #### [facility] [address] [place] [address] Dr. Jovanni Maya IG # 0.01 10e3/ul Normal 0.00-0.03 [facility] Comment on above: Performed By: #### C MP, HSTROPN #### [facility] [address] [place] [address] Dr. Jovanni Maya IG % 0.2 % Normal 0.0-0.5 [facility] Comment on above: Performed By: #### C MP, HSTROPN #### [facility] [address] [place] [address] Dr. Jovanni Maya LYMPH # 2.5 103/ul Normal 1.2-3.8 [facility] Comment on above: Performed By: #### C MP, HSTROPN #### [facility] [address] [place] [address] Dr. Jovanni Maya Lymphocytes/100 WBC (Bld) 38.1 % Normal 20.5-60.0 [facility] Comment on above: Performed By: #### C MP, HSTROPN #### [facility] [address] [place] [address] Dr. Jovanni Maya MANUAL DIFF REQ NO Normal [facility] Comment on above: Performed By: #### C MP, HSTROPN #### [facility] [address] [place] [address] Dr. Jovanni Maya MCH (RBC) [Entitic mass] 29.6 pg Normal 26.7-34.0 [facility] Comment on above: Performed By: #### C MP, HSTROPN #### [facility] [address] [place] [address] Dr. Jovanni Maya MCHC (RBC) [Mass/Vol] 33.2 g/dL Normal 29.9-35.2 [facility] Comment on above: Performed By: #### C MP, HSTROPN #### [facility] [address] [place] [address] Dr. Jovanni Maya MCV (RBC) [Entitic vol] 89.1 fL Normal 81.0-99.0 [facility] Comment on above: Performed By: #### C MP, HSTROPN #### [facility] [address] [place] [address] Dr. Jovanni Maya MONO # 0.7 103/ul Normal 0.3-0.8 [facility] Comment on above: Performed By: #### C MP, HSTROPN #### [facility] [address] [place] [address] Dr. Jovanni Maya Monocytes/100 WBC (Bld) 10.2 % Normal 1.7-12.0 [facility] Comment on above: Performed By: #### C MP, HSTROPN #### [facility] [address] [place] [address] Dr. Jovanni Maya NEUT # 3.2 103/ul Normal 1.4-6.5 [facility] Comment on above: Performed By: #### C MP, HSTROPN #### [facility] [address] [place] [address] Dr. Jovanni Maya Neutrophils/100 WBC (Bld) 48.1 % Normal 43.0-75.0 [facility] Comment on above: Performed By: #### C DANIEL, HSTROPN #### [facility] [address] [address] [address] Jovanni Maya Platelet mean volume (Bld) [Entitic vol] 9.8 fL Normal 9.5-13.5 [facility] Comment on above: Performed By: #### C DANIEL, HSTROPN #### [facility] [address] [address] [address] Jovanni Maya PLT 222 103/ul Normal 150-450 [facility] Comment on above: Performed By: #### C DANIEL, HSTROPN #### [facility] [address] [place] [address] Dr. Jovanni Maya RBC 3.85 106/ul Critically low 4.20-5.40 [facility] Comment on above: Performed By: #### C DANIEL, HSTROPN #### [facility] [address] [place] [address] Dr. Jovanni Maya WBC 6.5 103/ul Normal 4.0-11.0 [facility] Comment on above: Performed By: #### C DANIEL, HSTROPN #### [facility] [address] [place] [address] Dr. Jovanni Maya CULTURE URINEon 11-29-2021 CULTURE URINE Culture Observations : LIGHT GROWTH OF MIXED GENITAL ZANDER. NO POTENTIAL PATHOGENS SEEN. Normal [facility] Comment on above: Performed By: #### C DANIEL, HSTROPN #### [facility] [address] [place] [address] Dr. Jovanni Maya DRUG SCREEN RAPID (URINE)on 11-29-2021 AMP Negative Normal NEGATIVE [facility] Comment on above: Performed By: #### P REG, ACETON #### [facility] [address] [place] [address] Dr. Jovanni Maya BAR Negative Normal NEGATIVE [facility] Comment on above: Performed By: #### P REG, ACETON #### [facility] [address] [place] [address] Dr. Jovanni Maya BUP Negative Normal NEGATIVE [facility] Comment on above: Performed By: #### P REG, ACETON #### [facility] [address] [place] [address] Dr. Jovanni Maya BZO Positive Abnormal NEGATIVE [facility] Comment on above: Performed By: #### P REG, ACETON #### [facility] [address] [place] [address] Dr. Jovanni Maya DARIEN Negative Normal NEGATIVE [facility] Comment on above: Performed By: #### P REG, ACETON #### [facility] [address] [place] [address] Dr. Jovanni Maya CUT-OFFS SEE BELOW Normal [facility] Comment on above: Result Comment: AMP [...] Performed By: #### P REG, ACETON #### [facility] [address] [place] [address] Dr. Jovanni Maya DRUG CUT HEADER DRUG CLASS TEST SYST EM CUT-OFF CONCENTRATIONS ARE FOLLOWS: Normal [facility] Comment on above: Performed By: #### P REG, ACETON #### [facility] [address] [place] [address] Dr. Jovanni Maya mAMP Negative Normal NEGATIVE [facility] Comment on above: Performed By: #### P REG, ACETON #### [facility] [address] [place] [address] Dr. Jovanni Maya MTD Negative Normal NEGATIVE [facility] Comment on above: Performed By: #### P REG, ACETON #### [facility] [address] [place] [address] Dr. Jovanni Maya OPI Negative Normal NEGATIVE [facility] Comment on above: Performed By: #### P REG, ACETON #### [facility] [address] [place] [address] Dr. Jovanni Maya OXY Positive Abnormal NEGATIVE [facility] Comment on above: Performed By: #### P REG, ACETON #### [facility] [address] [place] [address] Dr. Jovanni Maya PCP Negative Normal NEGATIVE [facility] Comment on above: Performed By: #### P REG, ACETON #### [facility] [address] [place] [address] Dr. Jovanni Maya PPX Negative Normal NEGATIVE [facility] Comment on above: Performed By: #### P REG, ACETON #### [facility] [address] [place] [address] Dr. Jovanni Maya TCA Negative Normal NEGATIVE [facility] Comment on above: Performed By: #### P REG, ACETON #### [facility] [address] [place] [address] Dr. Jovanni Maya THC Positive Abnormal NEGATIVE [facility] Comment on above: Performed By: #### P REG, ACETON #### [facility] [address] [place] [address] Dr. Jovanni Maya ER URINE PROFILEon 2 Bilirubin Ql (U) SMALL Abnormal NEGATIVE [facility] Comment on above: Performed By: #### P REG, ACETON #### [facility] [address] [place] [address] Dr. Jovanni Maya Clarity (U) CLEAR Normal CLEAR [facility] Comment on above: Performed By: #### P REG, ACETON #### [facility] [address] [place] [address] Dr. Jovanni Maya Color (U) BROWN Abnormal YELLOW [facility] Comment on above: Performed By: #### P REG, ACETON #### [facility] [address] [place] [address] Dr. Jovanni ANTOINE A micrscopic examina tion will be performed if indicated. Normal [facility] Comment on above: Performed By: #### P REG, ACETON #### [facility] [address] [place] [address] Dr. Jovanni Maya Glucose Ql (U) Negative Normal NEGATIVE [facility] Comment on above: Performed By: #### P REG, ACETON #### [facility] [address] [address] [address] Jovanni Maya Hemoglobin Ql (U) LARGE Abnormal NEGATIVE [facility] Comment on above: Performed By: #### P REG, ACETON #### [facility] [address] [place] [address] Dr. Jovanni Maya Ketones Ql (U) Negative Normal NEGATIVE [facility] Comment on above: Performed By: #### P REG, ACETON #### [facility] [address] [place] [address] Dr. Jovanni Maya LEUKOCYTES MODERATE Abnormal NEGATIVE [facility] Comment on above: Performed By: #### P REG, ACETON #### [facility] [address] [place] [address] Dr. Jovanni Maya Nitrite Ql (U) Negative Normal NEGATIVE [facility] Comment on above: Performed By: #### P REG, ACETON #### [facility] [address] [place] [address] Dr. Jovanni Maya pH (U) 6.0 [pH] Normal 5-9 [facility] Comment on above: Performed By: #### P REG, ACETON #### [facility] [address] [place] [address] Dr. Jovanni Maya Protein (U) [Mass/Vol] 100 mg/dL Abnormal NEGAT BRUNO/ TRACE [facility] Comment on above: Performed By: #### P REG, ACETON #### [facility] [address] [place] [address] Dr. Jovanni Maya SPEC GRAVITY 1.025 Normal 1.005-<=1. 025 [facility] Comment on above: Performed By: #### P REG, ACETON #### [facility] [address] [place] [address] Dr. Jovanni Maya UR MICRO IND INDICATED Normal [facility] Comment on above: Performed By: #### P REG, ACETON #### [facility] [address] [place] [address] Dr. Jovanni Maya Urobilinogen Qn (U) 1.0 {Carlos A'U}/dL Normal 0.2 - 1. 0 [facility] Comment on above: Performed By: #### P REG, ACETON #### [facility] [address] [place] [address] Dr. Jovanni Maya LACTATE/LACTIC ACIDon 2021 Lactate [Moles/Vol] 1.2 mmol/L Normal 0.4-1.9 [facility] Comment on above: Performed By: #### L ACT #### [facility] [address] [place] [address] Dr. Jovanni Maya URon 11-29-2021 , QUAL Negative Normal NEGATIVE [facility] Comment on above: Performed By: #### P REG, ACETON #### [facility] [address] [place] [address] Dr. Jovanni Maya PROF CHEM 8 (BAS METB)on Anion gap [Moles/Vol] 11.0 mmol/L Normal [facility] Comment on above: Performed By: #### C MP, HSTROPN #### [facility] [address] [place] [address] Dr. Jovanni Maya Calcium [Mass/Vol] 8.7 mg/dL Normal 8.5-10.1 [facility] Comment on above: Performed By: #### C MP, HSTROPN #### [facility] [address] [place] [address] Dr. Jovanni Maya Chloride [Moles/Vol] 105 mmol/L Normal 98-107 [facility] Comment on above: Performed By: #### C MP, HSTROPN #### [facility] [address] [place] [address] Dr. Jovanni Maya CO2 [Moles/Vol] 27.5 mmol/L Normal 21.0-32.0 [facility] Comment on above: Performed By: #### C DANIEL, HSTROPN #### [facility] [address] [address] [address] Jovanni Maya Creatinine [Mass/Vol] 0.84 mg/dL Normal 0.55-1.02 [facility] Comment on above: Performed By: #### C DANIEL, HSTROPN #### [facility] [address] [address] [address] Jovanni Maya EGFR-AF ARMENIAN >60 Normal >=60 [facility] Comment on above: Performed By: #### C DANIEL, HSTROPN #### [facility] [address] [place] [address] Dr. Jovanni Maya EGFR-NON AF ARMENIAN >60 Normal >=60 [facility] Comment on above: Performed By: #### C DANIEL, HSTROPN #### [facility] [address] [address] [address] Jovanni Maay Glucose [Mass/Vol] 103 mg/dL Normal 74-106 [facility] Comment on above: Performed By: #### C DANIEL, HSTROPN #### [facility] [address] [place] [address] Dr. Jovanni Maya Potassium [Moles/Vol] 3.5 mmol/L Normal 3.5-5.1 [facility] Comment on above: Performed By: #### C DANIEL, HSTROPN #### [facility] [address] [place] [address] Dr. Jovanni Maya Sodium [Moles/Vol] 140 mmol/L Normal 136-145 [facility] Comment on above: Performed By: #### C DANIEL, HSTROPN #### [facility] [address] [address] [address] Jovanni Maya Urea nitrogen [Mass/Vol] 12.0 mg/dL Normal 7.0-18.0 [facility] Comment on above: Performed By: #### C DANIEL, HSTROPN #### [facility] [address] [place] [address] Dr. Jovanni Maya Urea nitrogen/Creatinine [Mass ratio] 14.3 mg/mg Normal [facility] Comment on above: Performed By: #### C MP, HSTROPN #### [facility] [address] [place] [address] Dr. Jovanni Maya URINE MICROSCOPIC ONLYon BACTERIA TRACE Abnormal NONE SEEN [facility] Comment on above: Performed By: #### P REG, ACETON #### [facility] [address] [place] [address] Dr. Jovanni Maya Bacteria identified Cx Nom (U) INDICATED Normal [facility] Comment on above: Performed By: #### P REG, ACETON #### [facility] [address] [place] [address] Dr. Jovanni Maya CA OX CRYSTALS RARE Normal [facility] Comment on above: Performed By: #### P REG, ACETON #### [facility] [address] [place] [address] Dr. Jovanni Maya CAST SEEN Abnormal NONE SEEN [facility] Comment on above: Performed By: #### P REG, ACETON #### [facility] [address] [place] [address] Dr. Jovanni Maya Crystals LM Nom (Urine sed) SEEN Abnormal NONE SEEN [facility] Comment on above: Performed By: #### P REG, ACETON #### [facility] [address] [place] [address] Dr. Jovanni Maya Epithelial cells LM Ql (Urine sed) FEW Abnormal NONE SEEN /RARE [facility] Comment on above: Performed By: #### P REG, ACETON #### [facility] [address] [place] [address] Dr. Jovanni Maya HYALINE CAST RARE Normal [facility] Comment on above: Performed By: #### P REG, ACETON #### [facility] [address] [place] [address] Dr. Jovanni Maya MUCOUS SMALL Abnormal NONE SEEN [facility] Comment on above: Performed By: #### P REG, ACETON #### [facility] [address] [place] [address] Dr. Jovanni Maya RBC 20-50 Abnormal 0-2 [facility] Comment on above: Performed By: #### P REG, ACETON #### [facility] [address] [place] [address] Dr. Jovanni Maya WBC 5-10 Abnormal NONE SEEN [facility] Comment on above: Performed By: #### P REG, ACETON #### [facility] [address] [place] [address] Dr. Jovanni Maya CBC AUTO DIFFon 10-16-2021 BASO # 0.0 103/ul Normal 0.0-0.1 [facility] Comment on above: Performed By: #### P REG, ACETON #### [facility] [address] [place] [address] Dr. Jovanni Maya Basophils/100 WBC (Bld) 0.2 % Normal 0.2-2.0 [facility] Comment on above: Performed By: #### P REG, ACETON #### [facility] [address] [place] [address] Dr. Jovanni Maya EO # 0.1 103/ul Normal 0.0-0.7 [facility] Comment on above: Performed By: #### P REG, ACETON #### [facility] [address] [place] [address] Dr. Jovanni Maya Eosinophils/100 WBC (Bld) 0.8 % Critically low 0.9-7.0 [facility] Comment on above: Performed By: #### P REG, ACETON #### [facility] [address] [place] [address] Dr. Jovanni Maya Erythrocyte distribution width (RBC) [Ratio] 12.2 % Normal 11.0-15.0 [facility] Comment on above: Performed By: #### P REG, ACETON #### [facility] [address] [place] [address] Dr. Jovanni Maya Hematocrit (Bld) [Volume fraction] 42.4 % Normal 36.0-48.0 [facility] Comment on above: Performed By: #### P REG, ACETON #### [facility] [address] [address] [address] Jovanni Maya Hemoglobin (Bld) [Mass/Vol] 14.5 g/dL Normal 12.0-16.0 [facility] Comment on above: Performed By: #### P REG, ACETON #### [facility] [address] [place] [address] Dr. Jovanni Maya IG # 0.04 10e3/ul Critically high 0.00-0.03 [facility] Comment on above: Performed By: #### P REG, ACETON #### [facility] [address] [place] [address] Dr. Jovanni Maya IG % 0.5 % Normal 0.0-0.5 [facility] Comment on above: Performed By: #### P REG, ACETON #### [facility] [address] [place] [address] Dr. Jovanni Maya LYMPH # 2.8 103/ul Normal 1.2-3.8 [facility] Comment on above: Performed By: #### P REG, ACETON #### [facility] [address] [place] [address] Dr. Jovanni Maya Lymphocytes/100 WBC (Bld) 31.8 % Normal 20.5-60.0 [facility] Comment on above: Performed By: #### P REG, ACETON #### [facility] [address] [place] [address] Dr. Jovanni Maya MANUAL DIFF REQ NO Normal [facility] Comment on above: Performed By: #### P REG, ACETON #### [facility] [address] [address] [address] Jovanni Maya MCH (RBC) [Entitic mass] 29.8 pg Normal 26.7-34.0 [facility] Comment on above: Performed By: #### P REG, ACETON #### [facility] [address] [place] [address] Dr. Jovanni Maya MCHC (RBC) [Mass/Vol] 34.2 g/dL Normal 29.9-35.2 [facility] Comment on above: Performed By: #### P REG, ACETON #### [facility] [address] [place] [address] Dr. Jovanni Maya MCV (RBC) [Entitic vol] 87.1 fL Normal 81.0-99.0 [facility] Comment on above: Performed By: #### P REG, ACETON #### [facility] [address] [place] [address] Dr. Jovanni Maya MONO # 0.6 103/ul Normal 0.3-0.8 [facility] Comment on above: Performed By: #### P REG, ACETON #### [facility] [address] [place] [address] Dr. Jovanni Maya Monocytes/100 WBC (Bld) 7.1 % Normal 1.7-12.0 [facility] Comment on above: Performed By: #### P REG, ACETON #### [facility] [address] [place] [address] Dr. Jovanni Maya NEUT # 5.2 103/ul Normal 1.4-6.5 [facility] Comment on above: Performed By: #### P REG, ACETON #### [facility] [address] [place] [address] Dr. Jovanni Maya Neutrophils/100 WBC (Bld) 59.6 % Normal 43.0-75.0 [facility] Comment on above: Performed By: #### P REG, ACETON #### [facility] [address] [place] [address] Dr. Jovanni Maya Platelet mean volume (Bld) [Entitic vol] 9.2 fL Critically low 9.5-13.5 [facility] Comment on above: Performed By: #### P REG, ACETON #### [facility] [address] [place] [address] Dr. Jovanni Maya PLT 301 103/ul Normal 150-450 [facility] Comment on above: Performed By: #### P REG, ACETON #### [facility] [address] [place] [address] Dr. Jovanni Maya RBC 4.87 106/ul Normal 4.20-5.40 [facility] Comment on above: Performed By: #### P REG, ACETON #### [facility] [address] [place] [address] Dr. Jovanni Maya WBC 8.7 103/ul Normal 4.0-11.0 [facility] Comment on above: Performed By: #### P REG, ACETON #### [facility] [address] [place] [address] Dr. Jovanni Maya CULTURE URINEon 10-16-2021 CULTURE URINE Culture Observations : LIGHT GROWTH OF MIXED GENITAL ZANDER. NO POTENTIAL PATHOGENS SEEN. Normal [facility] Comment on above: Performed By: #### C MP, HSTROPN #### [facility] [address] [place] [address] Dr. Jovanni Maya ER URINE PROFILEon Bilirubin Ql (U) Negative Normal NEGATIVE [facility] Comment on above: Performed By: #### P REG, ACETON #### [facility] [address] [place] [address] Dr. Jovanni Maya Clarity (U) CLEAR Normal CLEAR [facility] Comment on above: Performed By: #### P REG, ACETON #### [facility] [address] [place] [address] Dr. Jovanni Maya Color (U) LT. YELLOW Normal YELLOW [facility] Comment on above: Performed By: #### P REG, ACETON #### [facility] [address] [place] [address] Dr. Jovanni Maya ERUAHD A micrscopic examina tion will be performed if indicated. Normal [facility] Comment on above: Performed By: #### P REG, ACETON #### [facility] [address] [place] [address] Dr. Jovanni Maya Glucose Ql (U) Negative Normal NEGATIVE [facility] Comment on above: Performed By: #### P REG, ACETON #### [facility] [address] [place] [address] Dr. Jovanni Maya Hemoglobin Ql (U) LARGE Abnormal NEGATIVE [facility] Comment on above: Performed By: #### P REG, ACETON #### [facility] [address] [place] [address] Dr. Jovanni Maya Ketones Ql (U) TRACE Abnormal NEGATIVE [facility] Comment on above: Performed By: #### P REG, ACETON #### [facility] [address] [place] [address] Dr. Jovanni Maya LEUKOCYTES MODERATE Abnormal NEGATIVE [facility] Comment on above: Performed By: #### P REG, ACETON #### [facility] [address] [place] [address] Dr. Jovanni Maya Nitrite Ql (U) Negative Normal NEGATIVE [facility] Comment on above: Performed By: #### P REG, ACETON #### [facility] [address] [place] [address] Dr. Jovanni Maya pH (U) [pH] Abnormal 5-9 [facility] Comment on above: Performed By: #### P REG, ACETON #### [facility] [address] [place] [address] Dr. Jovanni Maya Protein (U) [Mass/Vol] 100 mg/dL Abnormal NEGAT BRUNO/ TRACE [facility] Comment on above: Performed By: #### P REG, ACETON #### [facility] [address] [place] [address] Dr. Jovanni Maya SPEC GRAVITY 1.015 Normal 1.005-<=1. 025 [facility] Comment on above: Performed By: #### P REG, ACETON #### [facility] [address] [place] [address] Dr. Jovanni Maya UR MICRO IND INDICATED Normal [facility] Comment on above: Performed By: #### P REG, ACETON #### [facility] [address] [place] [address] Dr. Jovanni Maya Urobilinogen Qn (U) 1.0 {Carlos A'U}/dL Normal 0.2 - 1. 0 [facility] Comment on above: Performed By: #### P REG, ACETON #### [facility] [address] [place] [address] Dr. Jovanni Maya LIPASEon 10-16-2021 Lipase [Catalytic activity/Vol] 85.0 U/L Normal 23.0-300.0 [facility] Comment on above: Performed By: #### P REG, ACETON #### [facility] [address] [place] [address] Dr. Jovanni Maya URon 10-16-2021 , QUAL Negative Normal NEGATIVE [facility] Comment on above: Performed By: #### P REG, ACETON #### [facility] [address] [place] [address] Dr. Jovanni Maya PROF 14(COMP METB)on 022 Albumin [Mass/Vol] 4.4 g/dL Normal 3.4-5.0 [facility] Comment on above: Performed By: #### P REG, ACETON #### [facility] [address] [place] [address] Dr. Jovanni Maya Albumin/Globulin [Mass ratio] 1.2 {ratio} Normal [facility] Comment on above: Performed By: #### P REG, ACETON #### [facility] [address] [place] [address] Dr. Jovanni Maya ALP [Catalytic activity/Vol] 66 U/L Normal 46-116 [facility] Comment on above: Performed By: #### P REG, ACETON #### [facility] [address] [place] [address] Dr. Jovanni Maya ALT [Catalytic activity/Vol] 13 U/L Critically low 14-59 [facility] Comment on above: Performed By: #### P REG, ACETON #### [facility] [address] [place] [address] Dr. Jovanni Maya Anion gap [Moles/Vol] 11.4 mmol/L Normal [facility] Comment on above: Performed By: #### P REG, ACETON #### [facility] [address] [place] [address] Dr. Jovanni Maya AST [Catalytic activity/Vol] 13 U/L Critically low 15-37 [facility] Comment on above: Performed By: #### P REG, ACETON #### [facility] [address] [address] [address] Jovanni Maya Bilirubin [Mass/Vol] 0.6 mg/dL Normal 0.2-1.3 [facility] Comment on above: Performed By: #### P REG, ACETON #### [facility] [address] [place] [address] Dr. Jovanni Maya Calcium [Mass/Vol] 8.7 mg/dL Normal 8.5-10.1 [facility] Comment on above: Performed By: #### P REG, ACETON #### [facility] [address] [place] [address] Dr. Jovanni Maya Chloride [Moles/Vol] 101 mmol/L Normal 98-107 [facility] Comment on above: Performed By: #### P REG, ACETON #### [facility] [address] [place] [address] Dr. Jovanni Maya CO2 [Moles/Vol] 27.5 mmol/L Normal 22.0-30.0 [facility] Comment on above: Performed By: #### P REG, ACETON #### [facility] [address] [place] [address] Dr. Jovanni Maya Creatinine [Mass/Vol] 0.80 mg/dL Normal 0.55-1.02 [facility] Comment on above: Performed By: #### P REG, ACETON #### [facility] [address] [place] [address] Dr. Jovanni Maya EGFR-AF ARMENIAN >60 Normal >=60 [facility] Comment on above: Performed By: #### P REG, ACETON #### [facility] [address] [place] [address] Dr. Jovanni Maya EGFR-NON AF ARMENIAN >60 Normal >=60 [facility] Comment on above: Performed By: #### P REG, ACETON #### [facility] [address] [place] [address] Dr. Jovanni Maya Globulin (S) [Mass/Vol] 3.7 g/dL Normal [facility] Comment on above: Performed By: #### P REG, ACETON #### [facility] [address] [address] [address] Jovanni Maya Glucose [Mass/Vol] 90 mg/dL Normal 74-106 [facility] Comment on above: Performed By: #### P REG, ACETON #### [facility] [address] [address] [address] Jovanni Maya Potassium [Moles/Vol] 3.9 mmol/L Normal 3.4-5.0 [facility] Comment on above: Performed By: #### P REG, ACETON #### [facility] [address] [place] [address] Dr. Jovanni Maya Protein [Mass/Vol] 8.1 g/dL Normal 6.1-8.2 [facility] Comment on above: Performed By: #### P REG, ACETON #### [facility] [address] [place] [address] Dr. Jovanni Maya Sodium [Moles/Vol] 136 mmol/L Critically low 137-145 [facility] Comment on above: Performed By: #### P REG, ACETON #### [facility] [address] [place] [address] Dr. Jovanni Maya Urea nitrogen [Mass/Vol] 10.0 mg/dL Normal 7.0-18.0 [facility] Comment on above: Performed By: #### P REG, ACETON #### [facility] [address] [place] [address] Dr. Jovanni Maya Urea nitrogen/Creatinine [Mass ratio] 12.5 mg/mg Normal [facility] Comment on above: Performed By: #### P REG, ACETON #### [facility] [address] [place] [address] Dr. Jovanni Maya URINE MICROSCOPIC ONLYon BACTERIA MODERATE Abnormal NONE SEEN [facility] Comment on above: Performed By: #### P REG, ACETON #### [facility] [address] [place] [address] Dr. Jovanni Maya Bacteria identified Cx Nom (U) INDICATED Normal [facility] Comment on above: Performed By: #### P REG, ACETON #### [facility] [address] [place] [address] Dr. Jovanni Maya CA OX CRYSTALS RARE Normal [facility] Comment on above: Performed By: #### P REG, ACETON #### [facility] [address] [place] [address] Dr. Jovanni Maya CAST NONE SEEN Normal NONE SEEN [facility] Comment on above: Performed By: #### P REG, ACETON #### [facility] [address] [place] [address] Dr. Jovanni Maya Crystals LM Nom (Urine sed) SEEN Abnormal NONE SEEN [facility] Comment on above: Performed By: #### P REG, ACETON #### [facility] [address] [place] [address] Dr. Jovanni Maya Epithelial cells LM Ql (Urine sed) MODERATE Abnormal NONE SEEN /RARE [facility] Comment on above: Performed By: #### P REG, ACETON #### [facility] [address] [place] [address] Dr. Jovanni Maya MUCOUS NONE SEEN Normal NONE SEEN [facility] Comment on above: Performed By: #### P REG, ACETON #### [facility] [address] [place] [address] Dr. Jovanni Maya RBC 50-75 Abnormal 0-2 [facility] Comment on above: Performed By: #### P REG, ACETON #### [facility] [address] [place] [address] Dr. Jovanni Maya WBC 10-20 Abnormal NONE SEEN [facility] Comment on above: Performed By: #### P REG, ACETON #### [facility] [address] [place] [address] Dr. Jovanni Maya XR KUB 1 VIEWon [...] COSMO ALONSO Date: 2021-10-16 19:18 Normal [facility] Activated partial thrombopla stin time (aPTT) in platelet poor plasma by coagulation aOrdered By: Roberto Whittaker on 09-28-2021 aPTT Coag (PPP) [Time] 34.9 s 25.1-36.5 [facility] Albumin [Mass/volume] in Ser um or PlasmaOrdered By: Roberto Whittaker on 09-28-2021 Albumin [Mass/Vol] 4.3 g/dL 3.2-5.5 [facility] Basophils Auto (Bld) [#/Vol] Ordered By: Roberto Whittaker on 09-28-2021 Basophils (Bld) [#/Vol] 0.0 10*3/uL 0.0-0.2 [facility] Basophils/100 WBC Auto (Bld) Ordered By: Roberto Whittaker on 09-28-2021 Basophils/100 WBC (Bld) 0.7 % [facility] Blood hemoglobin measurement (mass/volume)Ordered By: Roberto Whittaker on 09-28-2021 Hemoglobin (Bld) [Mass/Vol] 14.7 g/dL 11.8-15.4 [facility] Blood leukocytes automated c ount (number/volume)Ordered By: Roberto Whittaker 09-28-2021 WBC (Bld) [#/Vol] 6.2 10*3/uL 4.5-11.0 [facility] Creatinine and Glomerular fi ltration rate.predicted panel (S/P/Bld)Ordered By: Roberto Whittaker on 09-28-2021 Creatinine [Mass/Vol] 0.73 mg/dL 0.44-1.03 [facility] Direct bilirubin measurement Ordered By: Roberto Whittaker on 09-28-2021 Bilirubin.direct [Mass/Vol] mg/dL 0.0-0.4 [facility] Eosinophils Auto (Bld) [#/Vo l]Ordered By: Roberto Whittaker on 09-28-2021 Eosinophils (Bld) [#/Vol] 0.1 10*3/uL 0.0-0.45 [facility] Eosinophils/100 WBC Auto (Bl d)Ordered By: Roberto Whittaker on 09-28-2021 Eosinophils/100 WBC (Bld) 1.8 % [facility] Erythrocyte distribution wid th Auto (RBC) [Ratio]Ordered By: Roberto Whittaker on 09-28-2021 Erythrocyte distribution width (RBC) [Ratio] 13.1 % 11.9-15.3 [facility] Estimated glomerular filtrat ion rate (GFR) non- AmericanOrdered By: Roberto Whittaker on 09-28-2021 GFR/1.73 sq M.predicted among non-blacks MDRD (S/P/Bld) [Vol rate/Area] > 60 mL/Min [facility] Globulin Calc (S) [Mass/Vol] Ordered By: Roberto Whittaker on 09-28-2021 Globulin (S) [Mass/Vol] 3.2 g/dL [facility] Hematocrit Auto (Bld) [Volum e fraction]Ordered By: Roberto Whittaker on 09-28-2021 Hematocrit (Bld) [Volume fraction] 44.2 % 34.0-46.4 [facility] - Chemistry and C hemistry - challengeOrdered By: Roberto Whittaker 09-28-2021 Lipase [Catalytic activity/Vol] 36.0 U/L 22-51 [facility] Natriuretic peptide B (Bld) [Mass/Vol] 17.0 pg/mL 5-100 [facility] - CoagulationOrde red By: Roberto Whittaker on 09-28-2021 PT Coag (PPP) [Time] 12.3 s 9.0-12.9 [facility] - Hematology and Cell countsOrdered By: Roberto Whittaker on 09-28-2021 Nucleated RBC/100 WBC (Bld) [Ratio] 0.0 % 0-0.5 [facility] Lymphocytes Auto (Bld) [#/Vo l]Ordered By: Roberto Whittaker on 09-28-2021 Lymphocytes (Bld) [#/Vol] 2.7 10*3/uL 1.00-4.8 [facility] Lymphocytes/100 WBC Auto (Bl d)Ordered By: Roberto Whittaker on 09-28-2021 Lymphocytes/100 WBC (Bld) 43.6 % [facility] MCH Auto (RBC) [Entitic mass ]Ordered By: Roberto Whittaker on 09-28-2021 MCH (RBC) [Entitic mass] 29.8 pg 24.7-34.3 [facility] MCHC Auto (RBC) [Mass/Vol]Or dered By: Roberto Whittaker on 09-28-2021 MCHC (RBC) [Mass/Vol] 33.2 g/dL 32.0-35.0 [facility] MCV Auto (RBC) [Entitic vol] Ordered By: Roberto Whittaker on 09-28-2021 MCV (RBC) [Entitic vol] 89.6 fL 80-100 [facility] Monocytes Auto (Bld) [#/Vol] Ordered By: Roberto Whittaker on 09-28-2021 Monocytes (Bld) [#/Vol] 0.4 10*3/uL 0.0-0.8 [facility] Monocytes/100 WBC Auto (Bld) Ordered By: Roberto Whittaker on 09-28-2021 Monocytes/100 WBC (Bld) 6.8 % [facility] Neutrophils Auto (Bld) [#/Vo l]Ordered By: Roberto Whittaker on 09-28-2021 Neutrophils (Bld) [#/Vol] 2.9 10*3/uL 1.8-7.7 [facility] Neutrophils/100 WBC Auto (Bl d)Ordered By: Roberto Whittaker on 09-28-2021 Neutrophils/100 WBC (Bld) 47.1 % [facility] No Panel InformationOrdered By: Roberto Whittaker on 09-28-2021 Estimated GFR () > 60 mL/Min [facility] Comment on above: GFR estimated refere nce range: According to KDOQI guidelines, <60 ml/min/1.73m2 is sufficient to diagnose a patient with chronic kidney disease. Pharmacy Creatinine Clearance (Chem 91.21 [facility] Platelet mean volume Auto (B ld) [Entitic vol]Ordered By: Roberto Whittaker on 09-28-2021 Platelet mean volume (Bld) [Entitic vol] 7.7 fL 6.3-10.7 [facility] Platelet poor plasma interna tional normalized ratio (INR) by coagulation assay (relatOrdered By: Roberto Whittaker on 09-28-2021 INR Coag (PPP) [Relative time] 1.1 {INR} [facility] Comment on above: INR Therapeutic Rang [...] 09-28-2021 Platelets (Bld) [#/Vol] 291 10*3/uL 150-450 [facility] Protein [Mass/volume] in Ser um or PlasmaOrdered By: Roberto Whittaker on 09-28-2021 Protein [Mass/Vol] 7.5 g/dL 6.1-7.9 [facility] RBC Auto (Bld) [#/Vol]Ordere d By: Roberto Whittaker on 09-28-2021 RBC (Bld) [#/Vol] 4.93 10*6/uL 3.60-5.00 [facility] Serum or plasma alanine white otransferase measurement without P-5'-P (enzymatic activiOrdered By: Roberto Whittaker on 09-28-2021 ALT No additional P-5'-P [Catalytic activity/Vol] 9 U/L 10-60 [facility] Serum or plasma albumin/glob ulin mass ratioOrdered By: Roberto Whittaker on 09-28-2021 Albumin/Globulin [Mass ratio] 1.3 {ratio} [facility] Serum or plasma alkaline ignacio sphatase measurement (enzymatic activity/volume)Ordered By: Roebrto Whittaker on 09-28-2021 ALP [Catalytic activity/Vol] 51 U/L 32-92 [facility] Serum or plasma aspartate am inotransferase measurement (enzymatic activity/volume)Ordered By: Roberto Whittaker on 09-28-2021 AST [Catalytic activity/Vol] 16 U/L 10-42 [facility] Serum or plasma calcium randi urement (mass/volume)Ordered By: Roberto Whittaker on 09-28-2021 Calcium [Mass/Vol] 9.2 mg/dL 8.2-10.2 [facility] Serum or plasma chloride melonie surement (moles/volume)Ordered By: Roberto Whittaker on 09-28-2021 Chloride [Moles/Vol] 104 mmol/L 95-114 [facility] Serum or plasma glucose randi urement (mass/volume)Ordered By: Roberto Whittaker on 09-28-2021 Glucose [Mass/Vol] 100 mg/dL 70-100 [facility] Comment on above: ADA recommended refe rence rangeRandom Glucose Reference Range is dependent on time and content of last meal. Glucose of more than 200 mg/dL in a nonstressed, ambulatory subject supports the diagnosis of Diabetes Mellitus. Serum or plasma non-glucuron idated bilirubin measurement (mass/volume)Ordered By: Roberto Whittaker on 09-28-2021 Bilirubin.indirect [Mass/Vol] TNP [facility] Comment on above: Test not performed Serum or plasma potassium me asurement (moles/volume)Ordered By: Roberto Whittaker on 09-28-2021 Potassium [Moles/Vol] 4.4 mmol/L 3.5-5.1 [facility] Serum or plasma sodium measu rement (moles/volume)Ordered By: Roberto Whittaker on 09-28-2021 Sodium [Moles/Vol] 140 mmol/L 136-146 [facility] Serum or plasma total biliru bin measurement (mass/volume)Ordered By: Roberto Whittaker on 09-28-2021 Bilirubin [Mass/Vol] 0.4 mg/dL 0.3-1.2 [facility] Serum or plasma total carbon dioxide measurement (moles/volume)Ordered By: Roberto Whittaker on 09-28-2021 CO2 [Moles/Vol] 28.1 mmol/L 22.0-30.0 [facility] Serum or plasma urea nitroge n measurement (mass/volume)Ordered By: Roberto Whittaker on 09-28-2021 Urea nitrogen [Mass/Vol] 5 mg/dL 9-23 [facility] Troponin I.cardiac [Mass/vol ume] in Serum or Plasma by High sensitivity methodOrdered By: Roberto Whittaker on 09-28-2021 Troponin I.cardiac High sensitivity method [Mass/Vol] < 3 pg/mL 0-15 [facility] Albumin [Mass/volume] in Ser um or PlasmaOrdered By: Som Fiore on 09-09-2021 Albumin [Mass/Vol] 4.0 g/dL 3.2-5.5 [facility] Amphetamine Screen Ql (U)Ord ered By: Som Fiore on 09-09-2021 Amphetamines Ql (U) Negative Negative [facility] Automated erythrocytes count in urine sediment (number/area)Ordered By: Som Fiore on 09-09-2021 RBC Auto (Urine sed) [#/Area] 50-100 [HPF] [facility] Automated leukocytes count i n urine sediment (number/area)Ordered By: Som Fiore on 09-09-2021 WBC Auto (Urine sed) [#/Area] 20-49 [HPF] [facility] Barbiturates [Presence] in U rineOrdered By: Som Fiore on 09-09-2021 Barbiturates Ql (U) Negative Negative [facility] Basophils Auto (Bld) [#/Vol] Ordered By: Som Fiore on 09-09-2021 Basophils (Bld) [#/Vol] 0.0 10*3/uL 0.0-0.2 [facility] Basophils/100 WBC Auto (Bld) Ordered By: Som Fiore on 09-09-2021 Basophils/100 WBC (Bld) 0.5 % [facility] Benzodiazepines [Presence] i n UrineOrdered By: Som Fiore on 09-09-2021 Benzodiazepines Ql (U) Negative Negative [facility] Bilirubin Test strip Ql (U)O rdered By: Som Fiore on 09-09-2021 Bilirubin Ql (U) Negative Negative [facility] Blood hemoglobin measurement (mass/volume)Ordered By: Som Fiore on 09-09-2021 Hemoglobin (Bld) [Mass/Vol] 14.1 g/dL 11.8-15.4 [facility] Blood leukocytes automated c ount (number/volume)Ordered By: Som Fiore on 09-09-2021 WBC (Bld) [#/Vol] 8.3 10*3/uL 4.5-11.0 [facility] Cannabinoids [Presence] in U rine by Screen methodOrdered By: Som Fiore on 09-09-2021 Cannabinoids Screen Ql (U) Positive Negative [facility] Comment on above: These are unconfirme d results and should not be used for legal purposes. Drug Cut-Off Concentration: AMPH 1000 ng/mL DOMINIQUE 200 ng/mL BRICE 200 ng/mL COCM 300 ng/mL OP 300 ng/mL PCP 25 ng/mL THC 20 ng/mL Color Auto (U)Ordered By: Giovanni Fiore on 09-09-2021 Color (U) Yellow Yellow [facility] Creatinine and Glomerular fi ltration rate.predicted panel (S/P/Bld)Ordered By: Som Fiore on 09-09-2021 Creatinine [Mass/Vol] 0.76 mg/dL 0.44-1.03 [facility] Eosinophils Auto (Bld) [#/Vo l]Ordered By: Som Fiore on 09-09-2021 Eosinophils (Bld) [#/Vol] 0.1 10*3/uL 0.0-0.45 [facility] Eosinophils/100 WBC Auto (Bl d)Ordered By: Som Fiore on 09-09-2021 Eosinophils/100 WBC (Bld) 1.8 % [facility] Erythrocyte distribution wid th Auto (RBC) [Ratio]Ordered By: Som Fiore on 09-09-2021 Erythrocyte distribution width (RBC) [Ratio] 13.1 % 11.9-15.3 [facility] Estimated glomerular filtrat ion rate (GFR) non- AmericanOrdered By: Som Fiore on 09-09-2021 GFR/1.73 sq M.predicted among non-blacks MDRD (S/P/Bld) [Vol rate/Area] > 60 mL/Min [facility] Globulin Calc (S) [Mass/Vol] Ordered By: Som Fiore on 09-09-2021 Globulin (S) [Mass/Vol] 3.0 g/dL [facility] Glucose Glucometer (BldC) [M ass/Vol]Ordered By: Som Fiore on 09-09-2021 Glucose [Mass/Vol] 106 mg/dL [facility] Comment on above: Random Glucose Refer ence Range is dependent on time and content of last meal. Glucose of more than 200 mg/dL in a nonstressed, ambulatory subject supports the diagnosis of Diabetes Mellitus. Hematocrit Auto (Bld) [Volum e fraction]Ordered By: Som Fiore on 09-09-2021 Hematocrit (Bld) [Volume fraction] 40.9 % 34.0-46.4 [facility] Ketones Auto test strip (U) [Mass/Vol]Ordered By: Som Fiore on 09-09-2021 Ketones (U) [Mass/Vol] Negative Negative [facility] - Chemistry and C hemistry - challengeOrdered By: Som Fiore on 09-09-2021 Magnesium [Mass/Vol] 2.0 mg/dL 1.6-2.6 [facility] - CoagulationOrde red By: Som Fiore on 09-09-2021 PT Coag (PPP) [Time] 12.4 s 9.0-12.9 [facility] - Drug toxicology Ordered By: Som Fiore on 09-09-2021 Opiates Ql (U) Negative Negative [facility] - Hematology and Cell countsOrdered By: Som Fiore on 09-09-2021 Nucleated RBC/100 WBC (Bld) [Ratio] 0.1 % 0-0.5 [facility] - UrinalysisOrder ed By: Som Fiore on 09-09-2021 Hyaline casts LM Ql (Urine sed) 0-8 [LPF] [facility] Lymphocytes Auto (Bld) [#/Vo l]Ordered By: Som Fiore on 09-09-2021 Lymphocytes (Bld) [#/Vol] 3.2 10*3/uL 1.00-4.8 [facility] Lymphocytes/100 WBC Auto (Bl d)Ordered By: Som Fiore on 09-09-2021 Lymphocytes/100 WBC (Bld) 38.6 % [facility] MCH Auto (RBC) [Entitic mass ]Ordered By: Som Fiore on 09-09-2021 MCH (RBC) [Entitic mass] 30.6 pg 24.7-34.3 [facility] MCHC Auto (RBC) [Mass/Vol]Or dered By: Som Fiore on 09-09-2021 MCHC (RBC) [Mass/Vol] 34.5 g/dL 32.0-35.0 [facility] MCV Auto (RBC) [Entitic vol] Ordered By: Som Fiore on 09-09-2021 MCV (RBC) [Entitic vol] 88.6 fL 80-100 [facility] Monocytes Auto (Bld) [#/Vol] Ordered By: Som Fiore on 09-09-2021 Monocytes (Bld) [#/Vol] 0.5 10*3/uL 0.0-0.8 [facility] Monocytes/100 WBC Auto (Bld) Ordered By: Som Fiore on 09-09-2021 Monocytes/100 WBC (Bld) 6.3 % [facility] Neutrophils Auto (Bld) [#/Vo l]Ordered By: Som Fiore on 09-09-2021 Neutrophils (Bld) [#/Vol] 4.4 10*3/uL 1.8-7.7 [facility] Neutrophils/100 WBC Auto (Bl d)Ordered By: Som Fiore on 09-09-2021 Neutrophils/100 WBC (Bld) 52.8 % [facility] Nitrite Test strip Ql (U)Ord ered By: Som Fiore on 09-09-2021 Nitrite Ql (U) Negative Negative [facility] No Panel InformationOrdered By: Som Fiore on 09-09-2021 Estimated GFR () > 60 mL/Min [facility] Comment on above: GFR estimated refere nce range: According to KDOQI guidelines, <60 ml/min/1.73m2 is sufficient to diagnose a patient with chronic kidney disease. Pharmacy Creatinine Clearance (Chem 83.88 [facility] Phencyclidine Screen Ql (U)O rdered By: Som Fiore on 09-09-2021 Phencyclidine Ql (U) Negative Negative [facility] Platelet mean volume Auto (B ld) [Entitic vol]Ordered By: Som Fiore on 09-09-2021 Platelet mean volume (Bld) [Entitic vol] 8.5 fL 6.3-10.7 [facility] Platelet poor plasma interna tional normalized ratio (INR) by coagulation assay (relatOrdered By: Som Fiore on 09-09-2021 INR Coag (PPP) [Relative time] 1.1 {INR} [facility] Comment on above: INR Therapeutic Rang [...] 09-09-2021 Platelets (Bld) [#/Vol] 249 10*3/uL 150-450 [facility] Protein Auto test strip (U) [Mass/Vol]Ordered By: Som Fiore on 09-09-2021 Protein (U) [Mass/Vol] 30 mg/dL Negative Fi [facility] Protein [Mass/volume] in Ser um or PlasmaOrdered By: Som Fiore on 09-09-2021 Protein [Mass/Vol] 7.0 g/dL 6.1-7.9 [facility] RBC Auto (Bld) [#/Vol]Ordere d By: Som Fiore on 09-09-2021 RBC (Bld) [#/Vol] 4.62 10*6/uL 3.60-5.00 [facility] Serum or plasma alanine white otransferase measurement without P-5'-P (enzymatic activiOrdered By: Som Fiore on 09-09-2021 ALT No additional P-5'-P [Catalytic activity/Vol] 11 U/L 10-60 [facility] Serum or plasma albumin/glob ulin mass ratioOrdered By: Som Fiore on 09-09-2021 Albumin/Globulin [Mass ratio] 1.3 {ratio} [facility] Serum or plasma alkaline ignacio sphatase measurement (enzymatic activity/volume)Ordered By: Som Fiore on 09-09-2021 ALP [Catalytic activity/Vol] 45 U/L 32-92 [facility] Serum or plasma aspartate am inotransferase measurement (enzymatic activity/volume)Ordered By: Som Fiore on 09-09-2021 AST [Catalytic activity/Vol] 24 U/L 10-42 [facility] Serum or plasma calcium randi urement (mass/volume)Ordered By: Som Fiore on 09-09-2021 Calcium [Mass/Vol] 9.2 mg/dL 8.2-10.2 [facility] Serum or plasma chloride melonie surement (moles/volume)Ordered By: Som Fiore on 09-09-2021 Chloride [Moles/Vol] 103 mmol/L 95-114 [facility] Serum or plasma glucose randi urement (mass/volume)Ordered By: Som Fiore on 09-09-2021 Glucose [Mass/Vol] 85 mg/dL 70-100 [facility] Comment on above: ADA recommended refe rence rangeRandom Glucose Reference Range is dependent on time and content of last meal. Glucose of more than 200 mg/dL in a nonstressed, ambulatory subject supports the diagnosis of Diabetes Mellitus. Serum or plasma potassium me asurement (moles/volume)Ordered By: Som Fiore on 09-09-2021 Potassium [Moles/Vol] 4.2 mmol/L 3.5-5.1 [facility] Serum or plasma sodium measu rement (moles/volume)Ordered By: Som Fiore on 09-09-2021 Sodium [Moles/Vol] 138 mmol/L 136-146 [facility] Serum or plasma total biliru bin measurement (mass/volume)Ordered By: Som Fiore on 09-09-2021 Bilirubin [Mass/Vol] 0.3 mg/dL 0.3-1.2 [facility] Serum or plasma total carbon dioxide measurement (moles/volume)Ordered By: Som Fiore on 09-09-2021 CO2 [Moles/Vol] 26.3 mmol/L 22.0-30.0 [facility] Serum or plasma urea nitroge n measurement (mass/volume)Ordered By: Som Fiore on 09-09-2021 Urea nitrogen [Mass/Vol] 8 mg/dL 9-23 [facility] Specific gravity Auto test s trip (U) [Rel density]Ordered By: Som Fiore on 09-09-2021 Specific gravity (U) [Rel density] 1.017 1.001-1.03 0 [facility] Squamous epithelial cells de tection in urine sediment by light microscopyOrdered By: Som Fiore on 09-09-2021 Epithelial cells.squamous LM Ql (Urine sed) 1-2 [HPF] [facility] Urine bacteria detection by automated methodOrdered By: Som Fiore on 09-09-2021 Bacteria Auto Ql (U) None seen None Seen [facility] Urine clarity by refractomet ry automatedOrdered By: Som Fiore on 09-09-2021 Clarity Refractometry automated (U) Cloudy Clear [facility] Urine cocaine detectionOrder ed By: Som Fiore on 09-09-2021 Cocaine Ql (U) Negative Negative [facility] Urine culture routineOrdered By: Som Fiore on 09-09-2021 Bacteria identified Cx Nom (U) 2 Days [facility] Urine glucose measurement by automated test strip (mass/volume)Ordered By: Som Fiore on 09-09-2021 Glucose Auto test strip (U) [Mass/Vol] Normal mg/dL Normal [facility] Urine hemoglobin detection b y automated test stripOrdered By: Som Fiore on 09-09-2021 Hemoglobin Auto test strip Ql (U) 2+ Negative [facility] Urine leukocyte esterase det ection by automated test stripOrdered By: Som Fiore on 09-09-2021 Leukocyte esterase Auto test strip Ql (U) 3+ Negative [facility] Urobilinogen Auto test strip (U) [Mass/Vol]Ordered By: Som Fiore on 09-09-2021 Urobilinogen (U) [Mass/Vol] Normal mg/dL Normal [facility] pH Auto test strip (U)Ordere d By: Som Fiore on 09-09-2021 pH (U) 7.0 [pH] 5.0-9.0 [facility] Albumin [Mass/volume] in Ser um or PlasmaOrdered By: Tommy Bowen on 08-12-2021 Albumin [Mass/Vol] 4.0 g/dL 3.2-5.5 [facility] Automated erythrocytes count in urine sediment (number/area)Ordered By: Tommy Bowen on 08-12-2021 RBC Auto (Urine sed) [#/Area] Innumerable [HPF] [facility] Automated leukocytes count i n urine sediment (number/area)Ordered By: Tommy Bowen on 08-12-2021 WBC Auto (Urine sed) [#/Area] 5-9 [HPF] [facility] Basophils Auto (Bld) [#/Vol] Ordered By: Tommy Bowen on 08-12-2021 Basophils (Bld) [#/Vol] 0.0 10*3/uL 0.0-0.2 [facility] Basophils/100 WBC Auto (Bld) Ordered By: Tommy Bowen on 08-12-2021 Basophils/100 WBC (Bld) 0.3 % [facility] Bilirubin Test strip Ql (U)O rdered By: Tommy Bowen on 08-12-2021 Bilirubin Ql (U) Negative Negative [facility] Blood hemoglobin measurement (mass/volume)Ordered By: Tommy Bowen on 08-12-2021 Hemoglobin (Bld) [Mass/Vol] 13.9 g/dL 11.8-15.4 [facility] Blood leukocytes automated c ount (number/volume)Ordered By: Tommy Bowen on 08-12-2021 WBC (Bld) [#/Vol] 8.6 10*3/uL 4.5-11.0 [facility] Color Auto (U)Ordered By: Hermes Bowen on 08-12-2021 Color (U) Yellow Yellow [facility] Creatinine and Glomerular fi ltration rate.predicted panel (S/P/Bld)Ordered By: Tommy Bowen on 08-12-2021 Creatinine [Mass/Vol] 0.70 mg/dL 0.44-1.03 [facility] Eosinophils Auto (Bld) [#/Vo l]Ordered By: Tommy Bowen on 08-12-2021 Eosinophils (Bld) [#/Vol] 0.0 10*3/uL 0.0-0.45 [facility] Eosinophils/100 WBC Auto (Bl d)Ordered By: Tommy Bowen on 08-12-2021 Eosinophils/100 WBC (Bld) 0.3 % [facility] Erythrocyte distribution wid th Auto (RBC) [Ratio]Ordered By: Tommy Bowen on 08-12-2021 Erythrocyte distribution width (RBC) [Ratio] 12.7 % 11.9-15.3 [facility] Estimated glomerular filtrat ion rate (GFR) non- AmericanOrdered By: Tommy Bowen on 08-12-2021 GFR/1.73 sq M.predicted among non-blacks MDRD (S/P/Bld) [Vol rate/Area] > 60 mL/Min [facility] Globulin Calc (S) [Mass/Vol] Ordered By: Tommy Bowen on 08-12-2021 Globulin (S) [Mass/Vol] 3.6 g/dL [facility] Glucose Glucometer (BldC) [M ass/Vol]Ordered By: Tommy Bowen on 08-12-2021 Glucose [Mass/Vol] 102 mg/dL [facility] Comment on above: Random Glucose Refer ence Range is dependent on time and content of last meal. Glucose of more than 200 mg/dL in a nonstressed, ambulatory subject supports the diagnosis of Diabetes Mellitus. Hematocrit Auto (Bld) [Volum e fraction]Ordered By: Tommy Bowen on 08-12-2021 Hematocrit (Bld) [Volume fraction] 40.4 % 34.0-46.4 [facility] Ketones Auto test strip (U) [Mass/Vol]Ordered By: Tommy Bowen on 08-12-2021 Ketones (U) [Mass/Vol] Trace Negative [facility] - Hematology and Cell countsOrdered By: Tommy Bowen on 08-12-2021 Nucleated RBC/100 WBC (Bld) [Ratio] 0.1 % 0-0.5 [facility] - UrinalysisOrder ed By: Tommy Bowen on 08-12-2021 Hyaline casts LM Ql (Urine sed) 0-8 [LPF] [facility] Lymphocytes Auto (Bld) [#/Vo l]Ordered By: Tommy Bowen on 08-12-2021 Lymphocytes (Bld) [#/Vol] 2.0 10*3/uL 1.00-4.8 [facility] Lymphocytes/100 WBC Auto (Bl d)Ordered By: Tommy Bowen on 08-12-2021 Lymphocytes/100 WBC (Bld) 23.2 % [facility] MCH Auto (RBC) [Entitic mass ]Ordered By: Tommy Bowen on 08-12-2021 MCH (RBC) [Entitic mass] 30.2 pg 24.7-34.3 [facility] MCHC Auto (RBC) [Mass/Vol]Or dered By: Tommy Bowen on 08-12-2021 MCHC (RBC) [Mass/Vol] 34.5 g/dL 32.0-35.0 [facility] MCV Auto (RBC) [Entitic vol] Ordered By: Tommy Bowen on 08-12-2021 MCV (RBC) [Entitic vol] 87.6 fL 80-100 [facility] Monocytes Auto (Bld) [#/Vol] Ordered By: Tommy Bowen on 08-12-2021 Monocytes (Bld) [#/Vol] 0.6 10*3/uL 0.0-0.8 [facility] Monocytes/100 WBC Auto (Bld) Ordered By: Tommy Bowen on 08-12-2021 Monocytes/100 WBC (Bld) 6.7 % [facility] Neutrophils Auto (Bld) [#/Vo l]Ordered By: Tommy Bowen on 08-12-2021 Neutrophils (Bld) [#/Vol] 6.0 10*3/uL 1.8-7.7 [facility] Neutrophils/100 WBC Auto (Bl d)Ordered By: Tommy Bowen on 08-12-2021 Neutrophils/100 WBC (Bld) 69.5 % [facility] Nitrite Test strip Ql (U)Ord ered By: Tommy Bowen on 08-12-2021 Nitrite Ql (U) Negative Negative [facility] No Panel InformationOrdered By: Tommy Bowen on 08-12-2021 Estimated GFR () > 60 mL/Min [facility] Comment on above: GFR estimated refere nce range: According to KDOQI guidelines, <60 ml/min/1.73m2 is sufficient to diagnose a patient with chronic kidney disease. Pharmacy Creatinine Clearance (Chem 143.12 [facility] Platelet mean volume Auto (B ld) [Entitic vol]Ordered By: Tommy Bowen on 08-12-2021 Platelet mean volume (Bld) [Entitic vol] 7.9 fL 6.3-10.7 [facility] Platelets Auto (Bld) [#/Vol] Ordered By: Tommy Bowen on 08-12-2021 Platelets (Bld) [#/Vol] 315 10*3/uL 150-450 [facility] Protein Auto test strip (U) [Mass/Vol]Ordered By: Tommy Bowen on 08-12-2021 Protein (U) [Mass/Vol] 30 mg/dL Negative [facility] Protein [Mass/volume] in Ser um or PlasmaOrdered By: Tommy Bowen on 08-12-2021 Protein [Mass/Vol] 7.6 g/dL 6.1-7.9 [facility] RBC Auto (Bld) [#/Vol]Ordere d By: Tommy Bowen on 08-12-2021 RBC (Bld) [#/Vol] 4.61 10*6/uL 3.60-5.00 [facility] Serum or plasma alanine white otransferase measurement without P-5'-P (enzymatic activiOrdered By: Tommy Bowen on 08-12-2021 ALT No additional P-5'-P [Catalytic activity/Vol] 11 U/L 10-60 [facility] Serum or plasma albumin/glob ulin mass ratioOrdered By: Tommy Bowen on 08-12-2021 Albumin/Globulin [Mass ratio] 1.1 {ratio} [facility] Serum or plasma alkaline ignacio sphatase measurement (enzymatic activity/volume)Ordered By: Tommy Bowen on 08-12-2021 ALP [Catalytic activity/Vol] 58 U/L 32-92 [facility] Serum or plasma aspartate am inotransferase measurement (enzymatic activity/volume)Ordered By: Tommy Bowen on 08-12-2021 AST [Catalytic activity/Vol] 16 U/L 10-42 [facility] Serum or plasma calcium randi urement (mass/volume)Ordered By: Tommy Bowen on 08-12-2021 Calcium [Mass/Vol] 9.1 mg/dL 8.2-10.2 [facility] Serum or plasma chloride melonie surement (moles/volume)Ordered By: Tommy Bowen on 08-12-2021 Chloride [Moles/Vol] 102 mmol/L 95-114 [facility] Serum or plasma glucose randi urement (mass/volume)Ordered By: Tommy Bowen on 08-12-2021 Glucose [Mass/Vol] 86 mg/dL 70-100 [facility] Comment on above: ADA recommended refe rence rangeRandom Glucose Reference Range is dependent on time and content of last meal. Glucose of more than 200 mg/dL in a nonstressed, ambulatory subject supports the diagnosis of Diabetes Mellitus. Serum or plasma potassium me asurement (moles/volume)Ordered By: Tommy Bowen on 08-12-2021 Potassium [Moles/Vol] 3.6 mmol/L 3.5-5.1 [facility] Serum or plasma sodium measu rement (moles/volume)Ordered By: Tommy Bowen on 08-12-2021 Sodium [Moles/Vol] 136 mmol/L 136-146 [facility] Serum or plasma total biliru bin measurement (mass/volume)Ordered By: Tommy Bowen on 08-12-2021 Bilirubin [Mass/Vol] 0.5 mg/dL 0.3-1.2 [facility] Serum or plasma total carbon dioxide measurement (moles/volume)Ordered By: Tommy Bwoen on 08-12-2021 CO2 [Moles/Vol] 23.8 mmol/L 22.0-30.0 [facility] Serum or plasma urea nitroge n measurement (mass/volume)Ordered By: Tommy Bowen on 08-12-2021 Urea nitrogen [Mass/Vol] 6 mg/dL 9-23 [facility] Specific gravity Auto test s trip (U) [Rel density]Ordered By: Tommy Bowen on 08-12-2021 Specific gravity (U) [Rel density] 1.018 1.001-1.03 0 [facility] Squamous epithelial cells de tection in urine sediment by light microscopyOrdered By: Tommy Bowen on 08-12-2021 Epithelial cells.squamous LM Ql (Urine sed) 3-4 [HPF] [facility] Urine bacteria detection by automated methodOrdered By: Tommy Bowen on 08-12-2021 Bacteria Auto Ql (U) None seen None Seen [facility] Urine clarity by refractomet ry automatedOrdered By: Tommy Bowen on 08-12-2021 Clarity Refractometry automated (U) Clear Clear [facility] Urine culture routineOrdered By: Tommy Bowen on 08-12-2021 Bacteria identified Cx Nom (U) No Growth 2 Days [facility] Urine glucose measurement by automated test strip (mass/volume)Ordered By: Tommy Bowen on 08-12-2021 Glucose Auto test strip (U) [Mass/Vol] Normal mg/dL Normal [facility] Urine hemoglobin detection b y automated test stripOrdered By: Tommy Bowen on 08-12-2021 Hemoglobin Auto test strip Ql (U) 3+ Negative [facility] Urine leukocyte esterase det ection by automated test stripOrdered By: Tommy Bowen on 08-12-2021 Leukocyte esterase Auto test strip Ql (U) 1+ Negative [facility] Urobilinogen Auto test strip (U) [Mass/Vol]Ordered By: Tommy Bowen on 08-12-2021 Urobilinogen (U) [Mass/Vol] Normal mg/dL Normal [facility] pH Auto test strip (U)Ordere d By: Tommy Bowen on 08-12-2021 pH (U) 8.0 [pH] 5.0-9.0 [facility] Albumin [Mass/volume] in Ser um or PlasmaOrdered By: Tommy Bowen on 08-07-2021 Albumin [Mass/Vol] 4.4 g/dL 3.2-5.5 [facility] Automated erythrocytes count in urine sediment (number/area)Ordered By: Tommy Bowen on 08-07-2021 RBC Auto (Urine sed) [#/Area] 50-100 [HPF] [facility] Automated leukocytes count i n urine sediment (number/area)Ordered By: Tommy Bowen on 08-07-2021 WBC Auto (Urine sed) [#/Area] 10-19 [HPF] [facility] Basophils Auto (Bld) [#/Vol] Ordered By: Tommy Bowen on 08-07-2021 Basophils (Bld) [#/Vol] 0.0 10*3/uL 0.0-0.2 [facility] Basophils/100 WBC Auto (Bld) Ordered By: Tommy Bowen on 08-07-2021 Basophils/100 WBC (Bld) 0.4 % [facility] Bilirubin Test strip Ql (U)O rdered By: Tommy Bowen on 08-07-2021 Bilirubin Ql (U) Negative Negative [facility] Blood hemoglobin measurement (mass/volume)Ordered By: Tommy Bowen on 08-07-2021 Hemoglobin (Bld) [Mass/Vol] 14.1 g/dL 11.8-15.4 [facility] Blood leukocytes automated c ount (number/volume)Ordered By: Tommy Bowen on 08-07-2021 WBC (Bld) [#/Vol] 10.0 10*3/uL 4.5-11.0 [facility] Color Auto (U)Ordered By: Hermes Bowen on 08-07-2021 Color (U) Yellow Yellow [facility] Creatinine and Glomerular fi ltration rate.predicted panel (S/P/Bld)Ordered By: Tommy Bowen on 08-07-2021 Creatinine [Mass/Vol] 0.75 mg/dL 0.44-1.03 [facility] Eosinophils Auto (Bld) [#/Vo l]Ordered By: Tommy Bowen on 08-07-2021 Eosinophils (Bld) [#/Vol] 0.0 10*3/uL 0.0-0.45 [facility] Eosinophils/100 WBC Auto (Bl d)Ordered By: Tommy Bowen on 08-07-2021 Eosinophils/100 WBC (Bld) 0.4 % [facility] Erythrocyte distribution wid th Auto (RBC) [Ratio]Ordered By: Tommy Bowen on 08-07-2021 Erythrocyte distribution width (RBC) [Ratio] 12.7 % 11.9-15.3 [facility] Estimated glomerular filtrat ion rate (GFR) non- AmericanOrdered By: Tommy Bowen on 08-07-2021 GFR/1.73 sq M.predicted among non-blacks MDRD (S/P/Bld) [Vol rate/Area] > 60 mL/Min [facility] Globulin Calc (S) [Mass/Vol] Ordered By: Tommy Bowen on 08-07-2021 Globulin (S) [Mass/Vol] 3.6 g/dL [facility] Hematocrit Auto (Bld) [Volum e fraction]Ordered By: Tommy Bowen on 08-07-2021 Hematocrit (Bld) [Volume fraction] 41.5 % 34.0-46.4 [facility] Ketones Auto test strip (U) [Mass/Vol]Ordered By: Tommy Bowen on 08-07-2021 Ketones (U) [Mass/Vol] Trace Negative [facility] - Hematology and Cell countsOrdered By: Tommy Bowen on 08-07-2021 Nucleated RBC/100 WBC (Bld) [Ratio] 0.0 % 0-0.5 [facility] - UrinalysisOrder ed By: Tommy Bowen on 08-07-2021 Hyaline casts LM Ql (Urine sed) 0-8 [LPF] [facility] Lymphocytes Auto (Bld) [#/Vo l]Ordered By: Tommy Bowen on 08-07-2021 Lymphocytes (Bld) [#/Vol] 2.5 10*3/uL 1.00-4.8 [facility] Lymphocytes/100 WBC Auto (Bl d)Ordered By: Tommy Bowen on 08-07-2021 Lymphocytes/100 WBC (Bld) 25.4 % [facility] MCH Auto (RBC) [Entitic mass ]Ordered By: Tommy Bowen on 08-07-2021 MCH (RBC) [Entitic mass] 29.8 pg 24.7-34.3 [facility] MCHC Auto (RBC) [Mass/Vol]Or dered By: Tommy Bowen on 08-07-2021 MCHC (RBC) [Mass/Vol] 33.9 g/dL 32.0-35.0 [facility] MCV Auto (RBC) [Entitic vol] Ordered By: Tommy Bowne on 08-07-2021 MCV (RBC) [Entitic vol] 87.7 fL 80-100 [facility] Monocytes Auto (Bld) [#/Vol] Ordered By: Tommy Bowen on 08-07-2021 Monocytes (Bld) [#/Vol] 0.8 10*3/uL 0.0-0.8 [facility] Monocytes/100 WBC Auto (Bld) Ordered By: Tommy Bowen on 08-07-2021 Monocytes/100 WBC (Bld) 7.8 % [facility] Neutrophils Auto (Bld) [#/Vo l]Ordered By: Tommy Bowen on 08-07-2021 Neutrophils (Bld) [#/Vol] 6.6 10*3/uL 1.8-7.7 [facility] Neutrophils/100 WBC Auto (Bl d)Ordered By: Tommy Bowen on 08-07-2021 Neutrophils/100 WBC (Bld) 66.0 % [facility] Nitrite Test strip Ql (U)Ord ered By: Tommy Bowen on 08-07-2021 Nitrite Ql (U) Negative Negative [facility] No Panel InformationOrdered By: Tommy Bowen on 08-07-2021 Estimated GFR () > 60 mL/Min [facility] Comment on above: GFR estimated refere nce range: According to KDOQI guidelines, <60 ml/min/1.73m2 is sufficient to diagnose a patient with chronic kidney disease. Pharmacy Creatinine Clearance (Chem N/A [facility] Platelet mean volume Auto (B ld) [Entitic vol]Ordered By: Tommy Bowen on 08-07-2021 Platelet mean volume (Bld) [Entitic vol] 7.5 fL 6.3-10.7 [facility] Platelets Auto (Bld) [#/Vol] Ordered By: Tommy Bowen on 08-07-2021 Platelets (Bld) [#/Vol] 325 10*3/uL 150-450 [facility] Protein Auto test strip (U) [Mass/Vol]Ordered By: Tommy Bowen on 08-07-2021 Protein (U) [Mass/Vol] 30 mg/dL Negative [facility] Protein [Mass/volume] in Ser um or PlasmaOrdered By: Tommy Bowen on 08-07-2021 Protein [Mass/Vol] 8.0 g/dL 6.1-7.9 [facility] RBC Auto (Bld) [#/Vol]Ordere d By: Tommy Bowen on 08-07-2021 RBC (Bld) [#/Vol] 4.73 10*6/uL 3.60-5.00 [facility] Serum or plasma alanine white otransferase measurement without P-5'-P (enzymatic activiOrdered By: Tommy Bowen on 08-07-2021 ALT No additional P-5'-P [Catalytic activity/Vol] 9 U/L 10-60 [facility] Serum or plasma albumin/glob ulin mass ratioOrdered By: Tommy Bowen on 08-07-2021 Albumin/Globulin [Mass ratio] 1.2 {ratio} [facility] Serum or plasma alkaline ignacio sphatase measurement (enzymatic activity/volume)Ordered By: Tommy Bowen on 08-07-2021 ALP [Catalytic activity/Vol] 56 U/L 32-92 [facility] Serum or plasma aspartate am inotransferase measurement (enzymatic activity/volume)Ordered By: Tommy Bowen on 08-07-2021 AST [Catalytic activity/Vol] 19 U/L 10-42 [facility] Serum or plasma calcium randi urement (mass/volume)Ordered By: Tommy Bowen on 08-07-2021 Calcium [Mass/Vol] 9.3 mg/dL 8.2-10.2 [facility] Serum or plasma chloride melonie surement (moles/volume)Ordered By: Tommy Bowen on 08-07-2021 Chloride [Moles/Vol] 102 mmol/L 95-114 [facility] Serum or plasma glucose randi urement (mass/volume)Ordered By: Tommy Bowen on 08-07-2021 Glucose [Mass/Vol] 88 mg/dL 70-100 [facility] Comment on above: ADA recommended refe rence rangeRandom Glucose Reference Range is dependent on time and content of last meal. Glucose of more than 200 mg/dL in a nonstressed, ambulatory subject supports the diagnosis of Diabetes Mellitus. Serum or plasma potassium me asurement (moles/volume)Ordered By: Tommy Bowen on 08-07-2021 Potassium [Moles/Vol] 3.7 mmol/L 3.5-5.1 [facility] Serum or plasma sodium measu rement (moles/volume)Ordered By: Tommy Bowen on 08-07-2021 Sodium [Moles/Vol] 135 mmol/L 136-146 [facility] Serum or plasma total biliru bin measurement (mass/volume)Ordered By: Tommy Bowen on 08-07-2021 Bilirubin [Mass/Vol] 0.6 mg/dL 0.3-1.2 [facility] Serum or plasma total carbon dioxide measurement (moles/volume)Ordered By: Tommy Bowen on 08-07-2021 CO2 [Moles/Vol] 21.2 mmol/L 22.0-30.0 [facility] Serum or plasma urea nitroge n measurement (mass/volume)Ordered By: Tommy Bowen on 08-07-2021 Urea nitrogen [Mass/Vol] 10 mg/dL 9-23 [facility] Specific gravity Auto test s trip (U) [Rel density]Ordered By: Tommy Bowen on 08-07-2021 Specific gravity (U) [Rel density] 1.018 1.001-1.03 0 [facility] Squamous epithelial cells de tection in urine sediment by light microscopyOrdered By: Tommy Bowen on 08-07-2021 Epithelial cells.squamous LM Ql (Urine sed) 3-4 [HPF] [facility] Urine bacteria detection by automated methodOrdered By: Tommy Bowen on 08-07-2021 Bacteria Auto Ql (U) None seen None Seen [facility] Urine clarity by refractomet ry automatedOrdered By: Tommy Bowen on 08-07-2021 Clarity Refractometry automated (U) Clear Clear [facility] Urine culture routineOrdered By: Tommy Bowen on 08-07-2021 Bacteria identified Cx Nom (U) No Growth 2 Days [facility] Urine glucose measurement by automated test strip (mass/volume)Ordered By: Tommy Bowen on 08-07-2021 Glucose Auto test strip (U) [Mass/Vol] Normal mg/dL Normal [facility] Urine hemoglobin detection b y automated test stripOrdered By: Tommy Bowen on 08-07-2021 Hemoglobin Auto test strip Ql (U) 2+ Negative [facility] Urine leukocyte esterase det ection by automated test stripOrdered By: Tommy Bowen on 08-07-2021 Leukocyte esterase Auto test strip Ql (U) 2+ Negative [facility] Urobilinogen Auto test strip (U) [Mass/Vol]Ordered By: Tommy Bowen on 08-07-2021 Urobilinogen (U) [Mass/Vol] Normal mg/dL Normal [facility] pH Auto test strip (U)Ordere d By: Tommy Bowen on 08-07-2021 pH (U) 7.0 [pH] 5.0-9.0 [facility] Albumin [Mass/volume] in Ser um or PlasmaOrdered By: Bobby Rjoas on 07-10-2021 Albumin [Mass/Vol] 3.8 g/dL 3.2-5.5 [facility] Automated erythrocytes count in urine sediment (number/area)Ordered By: Bobby Rojas on 07-10-2021 RBC Auto (Urine sed) [#/Area] Innumerable [HPF] [facility] Automated leukocytes count i n urine sediment (number/area)Ordered By: Bobby Rojas on 07-10-2021 WBC Auto (Urine sed) [#/Area] 5-9 [HPF] [facility] Basophils Auto (Bld) [#/Vol] Ordered By: Bobby Rojas on 07-10-2021 Basophils (Bld) [#/Vol] 0.0 10*3/uL 0.0-0.2 [facility] Basophils/100 WBC Auto (Bld) Ordered By: Bobby Rojas on 07-10-2021 Basophils/100 WBC (Bld) 0.6 % [facility] Bilirubin Test strip Ql (U)O rdered By: Bobby Rojas on 07-10-2021 Bilirubin Ql (U) Negative Negative [facility] Blood hemoglobin measurement (mass/volume)Ordered By: Bobby Rojas on 07-10-2021 Hemoglobin (Bld) [Mass/Vol] 13.2 g/dL 11.8-15.4 [facility] Blood leukocytes automated c ount (number/volume)Ordered By: Bobby Rojas on 01-14-2022 WBC (Bld) [#/Vol] 5.8 10*3/uL 4.5-11.0 [facility] Color Auto (U)Ordered By: Victorino samreen Crystal on 07-10-2021 Color (U) Red Yellow [facility] Creatinine and Glomerular fi ltration rate.predicted panel (S/P/Bld)Ordered By: Bobby Rojas on 07-10-2021 Creatinine [Mass/Vol] 0.80 mg/dL 0.44-1.03 [facility] Eosinophils Auto (Bld) [#/Vo l]Ordered By: Bobby Rojas on 07-10-2021 Eosinophils (Bld) [#/Vol] 0.1 10*3/uL 0.0-0.45 [facility] Eosinophils/100 WBC Auto (Bl d)Ordered By: Bobby Rojas on 07-10-2021 Eosinophils/100 WBC (Bld) 1.4 % [facility] Erythrocyte distribution wid th Auto (RBC) [Ratio]Ordered By: Bobby Rojas on 07-10-2021 Erythrocyte distribution width (RBC) [Ratio] 13.0 % 11.9-15.3 [facility] Estimated glomerular filtrat ion rate (GFR) non- AmericanOrdered By: Bobby Rojas on 07-10-2021 GFR/1.73 sq M.predicted among non-blacks MDRD (S/P/Bld) [Vol rate/Area] > 60 mL/Min [facility] Globulin Calc (S) [Mass/Vol] Ordered By: Bobby Rojas on 07-10-2021 Globulin (S) [Mass/Vol] 2.7 g/dL [facility] Hematocrit Auto (Bld) [Volum e fraction]Ordered By: Bobby Rojas on 07-10-2021 Hematocrit (Bld) [Volume fraction] 38.6 % 34.0-46.4 [facility] Ketones Auto test strip (U) [Mass/Vol]Ordered By: Bobby Rojas on 07-10-2021 Ketones (U) [Mass/Vol] Negative [facility] and C hemistry - challengeOrdered By: Bobby Rojas on 07-10-2021 Magnesium [Mass/Vol] 2.0 mg/dL 1.6-2.6 [facility] - Hematology and Cell countsOrdered By: Bobby Rojas on 07-10-2021 Nucleated RBC/100 WBC (Bld) [Ratio] 0.3 % 0-0.5 [facility] Laboratory - UrinalysisOrder ed By: Bobby Rojas on 07-10-2021 Hyaline casts LM Ql (Urine sed) 0-8 [LPF] [facility] Lymphocytes Auto (Bld) [#/Vo l]Ordered By: Bobby Rojas on 07-10-2021 Lymphocytes (Bld) [#/Vol] 2.0 10*3/uL 1.00-4.8 [facility] Lymphocytes/100 WBC Auto (Bl d)Ordered By: Bobby Rojas on 07-10-2021 Lymphocytes/100 WBC (Bld) 34.4 % [facility] MCH Auto (RBC) [Entitic mass ]Ordered By: Bobby Rojas on 07-10-2021 MCH (RBC) [Entitic mass] 30.9 pg 24.7-34.3 [facility] MCHC Auto (RBC) [Mass/Vol]Or dered By: Bobby Rojas on 07-10-2021 MCHC (RBC) [Mass/Vol] 34.2 g/dL 32.0-35.0 [facility] MCV Auto (RBC) [Entitic vol] Ordered By: Bobby Rojas on 07-10-2021 MCV (RBC) [Entitic vol] 90.3 fL 80-100 [facility] Monocytes Auto (Bld) [#/Vol] Ordered By: Bobby Rojas on 07-10-2021 Monocytes (Bld) [#/Vol] 0.4 10*3/uL 0.0-0.8 [facility] Monocytes/100 WBC Auto (Bld) Ordered By: Bobby Rojas on 07-10-2021 Monocytes/100 WBC (Bld) 7.4 % [facility] Neutrophils Auto (Bld) [#/Vo l]Ordered By: Bobby Rojas on 07-10-2021 Neutrophils (Bld) [#/Vol] 3.3 10*3/uL 1.8-7.7 [facility] Neutrophils/100 WBC Auto (Bl d)Ordered By: Bobby Rojas on 07-10-2021 Neutrophils/100 WBC (Bld) 56.2 % [facility] Nitrite Test strip Ql (U)Ord ered By: Bobby Rojas on 07-10-2021 Nitrite Ql (U) Negative Negative [facility] No Panel InformationOrdered By: Bobby Rojas on 07-10-2021 Estimated GFR () > 60 mL/Min [facility] Comment on above: GFR estimated refere nce range: According to KDOQI guidelines, <60 ml/min/1.73m2 is sufficient to diagnose a patient with chronic kidney disease. Pharmacy Creatinine Clearance (Chem 84.65 [facility] Phosphate [Mass/volume] in S alexis or PlasmaOrdered By: Bobby Rojas on 07-10-2021 Phosphate [Mass/Vol] 2.6 mg/dL 2.5-4.6 [facility] Platelet mean volume Auto (B ld) [Entitic vol]Ordered By: Bobby Rojas on 07-10-2021 Platelet mean volume (Bld) [Entitic vol] 8.2 fL 6.3-10.7 [facility] Platelets Auto (Bld) [#/Vol] Ordered By: Bobby Rojas on 07-10-2021 Platelets (Bld) [#/Vol] 243 10*3/uL 150-450 [facility] Protein Auto test strip (U) [Mass/Vol]Ordered By: Bobby Rojas on 07-10-2021 Protein (U) [Mass/Vol] Trace mg/dL Negative F [facility] Protein [Mass/volume] in Ser um or PlasmaOrdered By: Bobby Rojas on 07-10-2021 Protein [Mass/Vol] 6.5 g/dL 6.1-7.9 [facility] RBC Auto (Bld) [#/Vol]Ordere d By: Bobby Rojas on 07-10-2021 RBC (Bld) [#/Vol] 4.27 10*6/uL 3.60-5.00 [facility] Serum or plasma alanine white otransferase measurement without P-5'-P (enzymatic activiOrdered By: Bobby Rojas on 07-10-2021 ALT No additional P-5'-P [Catalytic activity/Vol] 9 U/L 10-60 [facility] Serum or plasma albumin/glob ulin mass ratioOrdered By: Bobby Rojas on 07-10-2021 Albumin/Globulin [Mass ratio] 1.4 {ratio} [facility] Serum or plasma alkaline ignacio sphatase measurement (enzymatic activity/volume)Ordered By: Bobby Rojas on 07-10-2021 ALP [Catalytic activity/Vol] 43 U/L 32-92 [facility] Serum or plasma aspartate am inotransferase measurement (enzymatic activity/volume)Ordered By: Bobby Rojas on 07-10-2021 AST [Catalytic activity/Vol] 19 U/L 10-42 [facility] Serum or plasma calcium randi urement (mass/volume)Ordered By: Bobby Rojas on 07-10-2021 Calcium [Mass/Vol] 9.0 mg/dL 8.2-10.2 [facility] Serum or plasma chloride melonie surement (moles/volume)Ordered By: Bobby oRjas on 07-10-2021 Chloride [Moles/Vol] 103 mmol/L 95-114 [facility] Serum or plasma glucose randi urement (mass/volume)Ordered By: Bobby Rojas on 07-10-2021 Glucose [Mass/Vol] 96 mg/dL 70-100 [facility] Comment on above: ADA recommended refe rence rangeRandom Glucose Reference Range is dependent on time and content of last meal. Glucose of more than 200 mg/dL in a nonstressed, ambulatory subject supports the diagnosis of Diabetes Mellitus. Serum or plasma potassium me asurement (moles/volume)Ordered By: Bobby Rojas on 07-10-2021 Potassium [Moles/Vol] 3.4 mmol/L 3.5-5.1 [facility] Serum or plasma sodium measu rement (moles/volume)Ordered By: Bobby Rojas on 07-10-2021 Sodium [Moles/Vol] 140 mmol/L 136-146 [facility] Serum or plasma total biliru bin measurement (mass/volume)Ordered By: Bobby Rojas on 07-10-2021 Bilirubin [Mass/Vol] 0.6 mg/dL 0.3-1.2 [facility] Serum or plasma total carbon dioxide measurement (moles/volume)Ordered By: Bobby Rojsa on 07-10-2021 CO2 [Moles/Vol] 25.5 mmol/L 22.0-30.0 [facility] Serum or plasma urea nitroge n measurement (mass/volume)Ordered By: Bobby Rojas on 07-10-2021 Urea nitrogen [Mass/Vol] 6 mg/dL 9-23 [facility] Specific gravity Auto test s trip (U) [Rel density]Ordered By: Bobby Rojas on 07-10-2021 Specific gravity (U) [Rel density] 1.007 1.001-1.03 0 [facility] Squamous epithelial cells de tection in urine sediment by light microscopyOrdered By: Bobby Rojas on 07-10-2021 Epithelial cells.squamous LM Ql (Urine sed) 1-2 [HPF] [facility] Urine bacteria detection by automated methodOrdered By: Bobby Rojas on 07-10-2021 Bacteria Auto Ql (U) 2+ None Seen [facility] Urine clarity by refractomet ry automatedOrdered By: Bobby Rojas on 07-10-2021 Clarity Refractometry automated (U) Clear Clear [facility] Urine culture routineOrdered By: Bobby Rojas on 07-10-2021 Bacteria identified Cx Nom (U) Escherichia coli [facility] Urine glucose measurement by automated test strip (mass/volume)Ordered By: Bobby Rojas on 07-10-2021 Glucose Auto test strip (U) [Mass/Vol] Normal mg/dL Normal [facility] Urine hemoglobin detection b y automated test stripOrdered By: Bobby Rojas on 07-10-2021 Hemoglobin Auto test strip Ql (U) 3+ Negative [facility] Urine leukocyte esterase det ection by automated test stripOrdered By: Bobby Rojas on 07-10-2021 Leukocyte esterase Auto test strip Ql (U) 2+ Negative [facility] Urobilinogen Auto test strip (U) [Mass/Vol]Ordered By: Bobby Rojas on 07-10-2021 Urobilinogen (U) [Mass/Vol] Normal mg/dL Normal [facility] pH Auto test strip (U)Ordere d By: Bobby Rojas on 07-10-2021 pH (U) 7.5 [pH] 5.0-9.0 [facility] Keppraon 03-24-2021 KEPP 13 ug/mL Normal [facility] Comment on above: Result Comment: A [...] toxicity is not known. Performed By: #### BERTO GOMEZO #### [employer] [facility] [place], [place] [id number] Boat [employer]: Jhon Rios MD #### MG ANSARI CDP #### [facility] [address] [place], [place] [id number] Boat Pilot: Jude Nieves DO Lamotrigineon 03-24-2021 Lamotrigine <1.0 Low 3.0-15.0 [facility] Comment on above: Result Comment: Neither [...] Performed By: #### Cielo RON LAMO #### [facility] [employer] [address] [place], [place] [id number] Boat Pilot: Jhon Rios MD #### ELAN, MG, CDP #### [facility] [place] [address] Boat Pilot: Jude Nieves DO CBC with Diffon 03-23-2021 Abs. Basophil 0.00 k/uL Normal 0.0-0.2 [facility] Comment on above: Performed By: #### DYLON GOMEZ #### [address] [address] Boat Pilot: Jhon Rios MD #### MG ELAN, CDP #### [facility] [address] [place] [address] Boat Pilot: Jude Nieves DO Abs.Neutrophil (Seg) 4.60 k/uL Normal 1.3-9.1 [facility] Comment on above: Performed By: #### DYLON GOMEZ #### [address] [address] Boat Pilot: Jhon Rios MD #### MG ELAN, CDP #### [facility] [address] [place] [address] Boat [employer]: Jude Nieves DO Basophils/100 WBC (Bld) 1 % Normal 0-2 [facility] Comment on above: Performed By: #### DYLON GOMEZ #### [address] [address] Boat Pilot: Jhon Rios MD #### MG ELAN, CDP #### [facility] [address] [place] [address] [employer]: Jude Nieves DO Eosinophils (Bld) [#/Vol] 0.10 10*3/uL Normal 0.0-0.4 [facility] Comment on above: Performed By: #### DYLON GOMEZ #### [facility] [address] [place] [address] Boat Pilot: Jhon Rios MD #### ELAN MG, CDP #### [facility] [address] [place] [address] Boat Pilot: Jude Nieves DO Eosinophils/100 WBC (Bld) 1 % Normal 0-4 [facility] Comment on above: Performed By: #### Cielo RON LAMO #### [address] [address] [employer]: Jhon Rios MD #### MG ELAN, CDP #### [facility] [address] [place] [address] Boat Pilot: Jude Nieves DO Erythrocyte distribution width (RBC) [Ratio] 12.4 % Normal 11.5-14.9 [facility] Comment on above: Performed By: #### DYLON GOMEZ #### [address] [address] [employer] Pilot: Jhon Rios MD #### MG ELAN, CDP #### [facility] [address] [place] [address] Boat Pilot: Jude Nieves DO Hematocrit (Bld) [Volume fraction] 43.3 % Normal 36-46 [facility] Comment on above: Performed By: #### DYLON GOMEZ #### [address] [address] Boat Pilot: Jhon Rios MD #### MG ELAN, CDP #### [facility] [address] [place] [address] Boat Pilot: Jude Nieves DO Hemoglobin (Bld) [Mass/Vol] 14.8 g/dL Normal 12.0-16.0 [facility] Comment on above: Performed By: #### DYLON GOMEZ #### [address] [address] Boat Pilot: Jhon Rios MD #### CP, MG, CDP #### [facility] [address] [place] [address] Boat Pilot: Jude Nieves DO Lymphocytes (Bld) [#/Vol] 2.90 10*3/uL Normal 1.2-5.2 [facility] Comment on above: Performed By: #### DYLON GOMEZ #### [address] [address] Boat Pilot: Jhon Rios MD #### ELAN, MG, CDP #### [facility] [address] [place] [address] Boat Pilot: Jude Nieves DO Lymphocytes/100 WBC (Bld) 36 % Normal 25-45 [facility] Comment on above: Performed By: #### DYLON GOMEZ #### [address] [address] Boat Pilot: Jhon Rios MD #### ELAN, MG, CDP #### [facility] [address] [place] [address] Boat Pilot: Jude Nieves DO MCH (RBC) [Entitic mass] 30.8 pg Normal 26-34 [facility] Comment on above: Performed By: #### DYLON GOMEZ #### [address] [address] Boat Pilot: Jhon Rios MD #### CP, MG, CDP #### [facility] [address] [place] [address] Boat Pilot: Jude Nieves DO MCHC (RBC) [Mass/Vol] 34.1 g/dL Normal 31-37 [facility] Comment on above: Performed By: #### DYLON GOMEZ #### [address] [address] Boat Pilot: Jhon Rios MD #### CP, MG, CDP #### [facility] [address] [place] [address] Boat Pilot: Jude Nieves DO MCV (RBC) [Entitic vol] 90.1 fL Normal 80-100 [facility] Comment on above: Performed By: #### DYLON GOMEZ #### [address] [address] Boat Pilot: Jhon Rios MD #### ELAN, MG, CDP #### [facility] [address] [place] [address] Boat Pilot: Jude Nieves DO Monocytes (Bld) [#/Vol] 0.50 10*3/uL Normal 0.1-1.3 [facility] Comment on above: Performed By: #### DYLON GOMEZ #### [address] [address] Boat Pilot: Jhon Rios MD #### ELAN, MG, CDP #### [facility] [address] [place] [address] Boat Pilot: Jude Nieves DO Monocytes/100 WBC (Bld) 6 % Normal 2-8 [facility] Comment on above: Performed By: #### DYLON GOMEZ #### [address] [address] Boat Pilot: Jhon Rios MD #### CP, MG, CDP #### [facility] [address] [place] [address] Boat Pilot: Jude Nieves DO Neutrophil (Seg) 56 % Normal 34-64 [place] Comment on above: Performed By: #### DYLON GOMEZ #### [address] [address] Boat Pilot: Jhon Rios MD #### ELAN, MG, CDP #### [facility] [address] [place] [address] Boat Pilot: Jude Nieves DO Platelet mean volume (Bld) [Entitic vol] 7.4 fL Normal 6.0-12.0 [facility] Comment on above: Performed By: #### DYLON GOMEZ #### [address] [address] Boat Pilot: Jhon Rios MD #### ELAN MG, CDP #### [facility] [address] [place] [address] Boat Pilot: Jude Nieves DO Platelets (Bld) [#/Vol] 279 10*3/uL Normal 150-450 [facility] Comment on above: Performed By: #### DYLON GOMEZ #### [address] [address] [employer] Pilot: Jhon Rios MD #### ELAN MG, CDP #### [facility] [address] [place] [address] Boat Pilot: Jude Nieves DO RBC (Bld) [#/Vol] 4.81 10*6/uL Normal 4.0-5.2 [facility] Comment on above: Performed By: #### DYLON GOMEZ #### [address] [address] Boat Pilot: Jhon Rios MD #### ELAN MG, CDP #### [facility] [address] [place] [address] Boat Pilot: Jude Nieves DO WBC (Bld) [#/Vol] 8.1 10*3/uL Normal 4.5-13.5 [facility] Comment on above: Performed By: #### DYLON GOMEZ #### [address] [address] Boat Pilot: Jhon Rios MD #### CP, MG, CDP #### [facility] [address] [place] [address] Boat Pilot: Jude Nieves DO Abs.Imm.Granulocyte NOT REPORTED Normal 0.00-0.30 [facility] Comment on above: Performed By: #### DYLON GOMEZ #### [address] [address] Boat Pilot: Jhon Rios MD #### CP, MG, CDP #### [facility] [address] [place] [address] Boat Pilot: Jude Nieves DO Auto Diff Performed NOT REPORTED Normal [facility] Comment on above: Performed By: #### DYLON GOMEZ #### [address] [address] Boat Pilot: Jhon Rios MD #### CP, MG, CDP #### [facility] [address] [place] [address] Boat Pilot: Jude Nieves DO Immature Granulocyte NOT REPORTED Normal 0 [facility] Comment on above: Performed By: #### DYLON GOMEZ #### [address] [address] Boat Pilot: Jhon Rios MD #### CP, MG, CDP #### [facility] [address] [place] [address] Boat Pilot: Jude Nieves DO NRBC Automated NOT REPORTED Normal [place] Comment on above: Performed By: #### DYLON GOMEZ #### [address] [address] Boat Pilot: Jhon Rios MD #### CP, MG, CDP #### [facility] [address] [place] [address] Boat Pilot: Jude Nieves DO Platelet Estimate NOT REPORTED Normal [facility] Comment on above: Performed By: #### DYLON GOMEZ #### [address] [address] Boat Pilot: Jhon Rios MD #### CP, MG, CDP #### [facility] [address] [place] [address] Boat Pilot: Jude Nieves DO RBC morphology finding Nom (Bld) NOT REPORTED Normal [facility] Comment on above: Performed By: #### DYLON GOMEZ #### [address] [address] Boat Pilot: Jhon Rios MD #### CP, MG, CDP #### [facility] [address] [place] [address] Boat Pilot: Jude Nieves DO WBC Morphology NOT REPORTED Normal [place] Comment on above: Performed By: #### DYLON GOMEZ #### [address] [address] Boat Pilot: Jhon Rios MD #### CP, MG, CDP #### [facility] [address] [place] [address] Boat Pilot: Jude Nieves DO Comp Metabolic Profon 2020 (cont.) Normal [facility] Comment on above: Result Comment: Aver age GFR for <20 years old not available. Chronic Kidney Disease: <60 mL/min/1.73sq m Kidney failure: <15 mL/min/1.73sq m eGFR calculated using average adult body mass. Additional eGFR calculator available at: http://[email or web address]/multiple_crcl_2012.htm Performed By: #### DYLON GOMEZ #### [facility] [address] [place] [address] Boat Pilot: Jhon Rios MD #### MG ELAN, CDP #### [facility] [address] [place] [address] Boat Pilot: Jude Nieves DO Albumin [Mass/Vol] 4.6 g/dL Normal 3.5-5.2 [facility] Comment on above: Performed By: ###DYLON ALTAMIRANO #### [address] [address] Boat Pilot: Jhon Rios MD #### MG ELAN, CDP #### [facility] [address] [place] [address] Boat Pilot: Jude Nieves DO Alkaline Phos 67 U/L Normal 35-104 [facility] Comment on above: Performed By: #### DYLON GOMEZ #### [place] [id number] [place] [address] Boat Pilot: Jhon Rios MD #### MG ELAN, CDP #### [facility] [address] [place] [address] Boat Pilot: Jude Nieves DO ALT [Catalytic activity/Vol] 10 U/L Normal 5-33 [facility] Comment on above: Performed By: #### DYLON GOMEZ #### [address] [address] Boat Pilot: Jhon Rios MD #### CP, MG, CDP #### [facility] [address] [place] [address] Boat Pilot: Jude Nieves DO Anion gap [Moles/Vol] 10 mmol/L Normal 9-17 [facility] Comment on above: Performed By: #### DYLON GOMEZ #### [address] [address] [employer] Pilot: Jhon Rios MD #### ELAN, MG, CDP #### [facility] [address] [place] [address] Boat Pilot: Jude Nieves DO AST [Catalytic activity/Vol] 12 U/L Normal <32 [facility] Comment on above: Performed By: #### DYLON GOMEZ #### [address] [address] Boat Pilot: Jhon Rios MD #### MG ELAN, CDP #### [facility] [address] [place] [address] Boat Pilot: Jude Nieves DO Bilirubin [Mass/Vol] 0.40 mg/dL Normal 0.3-1.2 [facility] Comment on above: Performed By: #### DYLON GOMEZ #### [id number] [place] [address] Boat Pilot: Jhon Rios MD #### CP, MG, CDP #### [facility] [address] [place] [address] Boat Pilot: Jude Nieves DO Calcium [Mass/Vol] 9.3 mg/dL Normal 8.6-10.4 [facility] Comment on above: Performed By: #### DYLON GOMEZ #### [address] [address] Boat Pilot: Jhon Rios MD #### MG ELAN, CDP #### [facility] [address] [place] [address] Boat Pilot: Jude Nieves DO Chloride [Moles/Vol] 101 mmol/L Normal 98-107 [facility] Comment on above: Performed By: #### DYLON GOMEZ #### [address] [address] [employer] Pilot: Jhon Rios MD #### MG ELAN, CDP #### [facility] [address] [place] [address] Boat Pilot: Jude Nieves DO CO2 [Moles/Vol] 25 mmol/L Normal 20-31 [facility] Comment on above: Performed By: #### DYLON OGMEZ #### [address] [address] Boat Pilot: Jhon Rios MD #### MG ELAN, CDP #### [facility] [address] [place] [address] Boat Pilot: Jude Nieves DO Creatinine [Mass/Vol] 0.71 mg/dL Normal 0.50-0.90 [facility] Comment on above: Performed By: #### DYLON GOMEZ #### [address] [address] Boat Pilot: Jhon Rios MD #### MG ELAN, CDP #### [facility] [address] [place] [address] Boat Pilot: Jude Nieves DO GFR,non Amer Pediatric GFR requi res additional information. Refer to NKDEP website for Normal >60 [facility] Comment on above: Result Comment: calc ulator. Performed By: #### K BERTO RONO #### [facility] [address] [place] [address] Boat Pilot: Jhon Rios MD #### CP, MG, CDP #### [facility] [address] [place] [address] Boat Pilot: Jude Nieves DO Glucose [Mass/Vol] 90 mg/dL Normal 70-99 [facility] Comment on above: Performed By: #### K BERTO RONO #### [address] [address] Boat Pilot: Jhon Rios MD #### ELNA, MG, CDP #### [facility] [address] [place] [address] Boat Pilot: Jude Nieves DO Potassium [Moles/Vol] 3.8 mmol/L Normal 3.7-5.3 [facility] Comment on above: Performed By: #### DYLON GOMEZ #### [address] [address] Boat Pilot: Jhon Rios MD #### ELAN, MG, CDP #### [facility] [address] [place] [address] Boat Pilot: Jude Nieves DO Protein [Mass/Vol] 7.8 g/dL Normal 6.4-8.3 [facility] Comment on above: Performed By: #### DYLON GOMEZ #### [address] [address] Boat Pilot: Jhon Rios MD #### CP, MG, CDP #### [facility] [address] [place] [address] Boat Pilot: Jude Nieves DO Sodium [Moles/Vol] 136 mmol/L Normal 135-144 [facility] Comment on above: Performed By: #### K BERTO RONO #### [address] [address] Boat Pilot: Jhon Rios MD #### CP, MG, CDP #### [facility] [address] [place] [address] Boat Pilot: Jude Nieves DO Urea nitrogen [Mass/Vol] 11 mg/dL Normal 6-20 [facility] Comment on above: Performed By: #### K DYLON RON #### [address] [address] Boat Pilot: Jhon Rios MD #### ELAN, MG, CDP #### [facility] [address] [place] [address] Boat Pilot: Jude Nieves DO Albumin/Glob Ratio NOT REPORTED Normal 1.0-2.5 [facility] Comment on above: Performed By: #### DYLON GOMEZ #### [address] [address] Boat Pilot: Jhon Rios MD #### ELAN, MG, CDP #### [facility] [address] [place] [address] Boat Pilot: Jude Nieves DO BUN/CRE Ratio NOT REPORTED Normal 9-20 [facility] Comment on above: Performed By: #### K ARIADNE LAMO #### [address] [address] Boat Pilot: Jhon Rios MD #### CP, MG, CDP #### [facility] [address] [place] [address] Boat Pilot: Jude Nieves DO GFR, Amer NOT REPORTED Normal >60 [facility] Comment on above: Performed By: #### K BERTO RONO #### [facility] [address] [place] [address] Boat Pilot: Jhon Rios MD #### CP, MG, CDP #### [facility] [address] [place] [address] Boat Pilot: Jude Nieves DO Staging: NOT REPORTED Normal [facility] Comment on above: Performed By: #### K BERTO RONO #### [address] [address] Boat Pilot: Jhon Rios MD #### CP, MG, CDP #### [facility] [address] [place] [address] Boat Pilot: Jude Nieves DO HCG, ,Urineon 03-23 Beta HCG ( test) Ql (U) Negative Normal NEG [facility] Comment on above: Result Comment: Spec imens with hCG levels near the threshold of the test (25 mIU/mL) may give a negative or indeterminate result. In such cases, another test should be performed with a new specimen in 48-72 hours. If early is suspected clinically in this setting, correlation with quantitative serum b-hCG level is suggested. Performed By: #### U HCG #### [facility] [address] [place] [address] Boat Pilot: Jude Nieves DO Magnesiumon 8 Magnesium [Mass/Vol] 2.2 mg/dL Normal 1.7-2.2 [facility] Comment on above: Performed By: #### DYLON GOMEZ #### [address] [address] Boat Pilot: Jhon Rios MD #### CP, MG, CDP #### [facility] [address] [place] [address] Boat Pilot: Jude Nieves DO CONSULTATIONon 12-05-[address] [id number] CONSULTATION PATIENT NAME: KARIS KOVACS : 2000 MED REC NO: [id number] ROOM: [facility] ACCOUNT NO: [id number] ADMIT DATE: 07/17/2017 PROVIDER: Nahun Sanchez CONSULT [...] as male. The patient was taken to [place] [facility], where she tested positive for THC. [...] grandmother. She tested positive for THC at [facility]. REVIEW OF SYSTEMS: No weight gain [...] I did not add any antiepileptic medications. MEDINA VINI [id number] Doc#: [id number] CC: [facility] Vital Signs Date Time Vital Sign Value Performing Clinician Facility 03-06-2025 13:24-0400 Diastolic blood pressure 72 mm[Hg] Kings Robles MD Work Phone: [facility] 03-06-2025 13:24-0400 Heart rate 80 /min Kings Robles MD Work Phone: [facility] 03-06-2025 13:24-0400 Systolic blood pressure 104 mm[Hg] Kings Robles MD Work Phone: [facility] 03-06-2025 13:23-0400 Body height 154.9 cm Kings Robles MD Work Phone: [facility] 03-06-2025 13:23-0400 Body mass index (BMI) [Ratio] 19.65 kg/m2 Kings Robles MD Work Phone: [facility] 03-06-2025 13:23-0400 Body weight 47.17 kg Kings Robles MD Work Phone: [facility] 02-19-2025 12:55-0400 Body mass index (BMI) [Ratio] 18.65 kg/m2 Edenilson Schmitz RD Work Phone: [facility] 02-19-2025 12:55-0400 Body weight 46.[address] Work Phone: [facility] 02-15-2025 09:07-0400 Body height 157.5 cm Lavonne Garnicamiles OIL TANKER CAPTAIN Work Phone: [facility] 02-15-2025 09:07-0400 Body mass index (BMI) [Ratio] 18.66 kg/m2 Lavonne Beltraniani OIL TANKER CAPTAIN Work Phone: [facility] 02-15-2025 09:07-0400 Body weight 46.27 kg Lavonne Garnicai OIL TANKER CAPTAIN Work Phone: [facility] 02-06-2025 14:54-0400 Body height 157.5 cm Sierra Torresnagel OIL TANKER CAPTAIN Work Phone: [facility] 02-06-2025 14:54-0400 Body mass index (BMI) [Ratio] 18.47 kg/m2 Sierra Briannagel OIL TANKER CAPTAIN Work Phone: [facility] 02-06-2025 14:54-0400 Body weight 45.81 kg Sierra Briannagel OIL TANKER CAPTAIN Work Phone: [facility] 02-06-2025 14:54-0400 Diastolic blood pressure 74 mm[Hg] Sierra Windnagel OIL TANKER CAPTAIN Work Phone: [facility] 02-06-2025 14:54-0400 Systolic blood pressure 118 mm[Hg] Sierra Windnagel OIL TANKER CAPTAIN Work Phone: [facility] 01-23-2025 13:31-0400 Diastolic blood pressure 82 mm[Hg] Kings Robles MD Work Phone: [facility] 01-23-2025 13:31-0400 Systolic blood pressure 110 mm[Hg] Kings Robles MD Work Phone: [facility] 01-23-2025 13:30-0400 Body height 157.5 cm Kings Robles MD Work Phone: [facility] 01-23-2025 13:30-0400 Body mass index (BMI) [Ratio] 18.14 kg/m2 Kings Robles MD Work Phone: [facility] 01-23-2025 13:30-0400 Body weight 45 kg Kings Robles MD Work Phone: [facility] 01-23-2025 13:30-0400 Heart rate 74 /min Kings Robles MD Work Phone: [facility] 01-04-2025 15:06-0400 Body height 157.5 cm Gale Bassett OUTREACH COORDINATOR.BANKING MANAGEMENT CONSULTING MANAGER Work Phone: [facility] 01-04-2025 15:06-0400 Body mass index (BMI) [Ratio] 16.79 kg/m2 Gale Bassett OUTREACH COORDINATOR.BANKING MANAGEMENT CONSULTING MANAGER Work Phone: [facility] 01-04-2025 15:06-0400 Body weight 41.65 kg Gale Bassett OUTREACH COORDINATOR.BANKING MANAGEMENT CONSULTING MANAGER Work Phone: [facility] 01-04-2025 15:06-0400 Diastolic blood pressure 66 mm[Hg] Gale Bassett OUTREACH COORDINATOR.BANKING MANAGEMENT CONSULTING MANAGER Work Phone: [facility] 01-04-2025 15:06-0400 Heart rate 77 /min Gale Bassett OUTREACH COORDINATOR.BANKING MANAGEMENT CONSULTING MANAGER Work Phone: [facility] 01-04-2025 15:06-0400 SaO2% (BldA) [Mass fraction] 99 % Gale Bassett OUTREACH COORDINATOR.BANKING MANAGEMENT CONSULTING MANAGER Work Phone: [facility] 01-04-2025 15:06-0400 Systolic blood pressure 101 mm[Hg] Gale Bassett OUTREACH COORDINATOR.BANKING MANAGEMENT CONSULTING MANAGER Work Phone: [facility] 01-03-2025 16:18-0400 Body height 157.5 cm Lavonne Thomas OIL TANKER CAPTAIN Work Phone: [facility] 01-03-2025 16:18-0400 Body mass index (BMI) [Ratio] 17.01 kg/m2 Lavonne Thomas OIL TANKER CAPTAIN Work Phone: [facility] 01-03-2025 16:18-0400 Body weight 42.19 kg Lavonne Thomas NP Work Phone: [facility] 12-06-2024 13:19-0400 Body height 157.5 cm Caleb Easton MD Work Phone: [facility] 12-06-2024 13:19-0400 Body mass index (BMI) [Ratio] 18.11 kg/m2 Caleb Easton MD Work Phone: [facility] 12-06-2024 13:19-0400 Body weight 44.91 kg Claeb Easton MD Work Phone: [facility] 12-06-2024 13:19-0400 Diastolic blood pressure 75 mm[Hg] Caleb Easton MD Work Phone: [facility] 12-06-2024 13:19-0400 Heart rate 82 /min Caleb Easton MD Work Phone: [facility] 12-06-2024 13:19-0400 Systolic blood pressure 118 mm[Hg] Caleb Easton MD Work Phone: [facility] 10-15-2024 15:00-0400 Diastolic blood pressure 67 mm[Hg] Kavin House DO Work Phone: [facility] 10-15-2024 15:00-0400 Heart rate 81 /min Kavin House DO Work Phone: [facility] 10-15-2024 15:00-0400 Respiratory rate 16 /min Kavin House DO Work Phone: [facility] 10-15-2024 15:00-0400 SaO2% (BldA) [Mass fraction] 100 % Kavin House DO Work Phone: [facility] 10-15-2024 15:00-0400 Systolic blood pressure 115 mm[Hg] Kavin House DO Work Phone: [facility] 10-15-2024 12:23-0400 Body height 157.48 cm Kavin French DO Work Phone: [facility] 10-15-2024 12:23-0400 Body weight 44.9 kg Kavin French DO Work Phone: [facility] 09-27-2024 13:55-0400 Body height 157.48 cm [facility] 09-27-2024 13:55-0400 Body mass index (BMI) [Ratio] 18.1 kg/m2 [facility] 09-27-2024 13:55-0400 Body weight 44.9 kg [facility] 09-27-2024 13:55-0400 Diastolic blood pressure 72 mm[Hg] [facility] 09-27-2024 13:55-0400 Heart rate 80 /min [facility] 09-27-2024 13:55-0400 Systolic blood pressure 127 mm[Hg] [facility] 09-03-2024 14:13-0400 Body height 157.5 cm Debbie Mckeon MD Work Phone: [facility] 09-03-2024 14:13-0400 Body mass index (BMI) [Ratio] 17.74 kg/m2 Debbie Mckeon MD Work Phone: [facility] 09-03-2024 14:13-0400 Body weight 44 kg Debbie Mckeon MD Work Phone: [facility] 09-03-2024 14:13-0400 Diastolic blood pressure 74 mm[Hg] Debbie Mckeon MD Work Phone: [facility] 09-03-2024 14:13-0400 Heart rate 77 /min Debbie Mckeon MD Work Phone: [facility] 09-03-2024 14:13-0400 Systolic blood pressure 116 mm[Hg] Debbie Mckeon MD Work Phone: [facility] 08-16-2024 11:38-0500 Body height 157.5 cm Karen MILLER Work Phone: [facility] 08-16-2024 11:38-0500 Body mass index (BMI) [Ratio] 17.74 kg/m2 Karen Neely OUTREACH COORDINATOR-CNM Work Phone: [facility] 08-16-2024 11:38-0500 Body weight 44 kg Karen Neely OUTREACH COORDINATOR-CNM Work Phone: [facility] 08-16-2024 11:38-0500 Diastolic blood pressure 80 mm[Hg] Karen Neely OUTREACH COORDINATOR-CNM Work Phone: [facility] 08-16-2024 11:38-0500 Systolic blood pressure 100 mm[Hg] Karen Neely OUTREACH COORDINATOR-CNM Work Phone: [facility] 07-18-2024 15:48-0500 Body mass index (BMI) [Ratio] 17.92 kg/m2 Gloria Zacarias RD Work Phone: [facility] 07-18-2024 15:48-0500 Body weight 44.[address] Work Phone: [facility] 06-29-2024 16:32-0500 Body height 157.5 cm Debbie Mckeon MD Work Phone: [facility] 06-29-2024 16:32-0500 Body mass index (BMI) [Ratio] 17.92 kg/m2 Debbie Mckeon MD Work Phone: [facility] 06-29-2024 16:32-0500 Body weight 44.45 kg Debbie Mckeon MD Work Phone: [facility] 06-29-2024 16:32-0500 Diastolic blood pressure 78 mm[Hg] Debbie Mckeon MD Work Phone: [facility] 06-29-2024 16:32-0500 Heart rate 63 /min Debbie Mckeon MD Work Phone: [facility] 06-29-2024 16:32-0500 Systolic blood pressure 112 mm[Hg] Debbie Mckeon MD Work Phone: [facility] 05-21-2024 14:11-0500 Body height 157.5 cm Caleb Easton MD Work Phone: [facility] 05-21-2024 14:11-0500 Body mass index (BMI) [Ratio] 17.92 kg/m2 Caleb Easton MD Work Phone: [facility] 05-21-2024 14:11-0500 Body weight 44.45 kg Caleb Easton MD Work Phone: [facility] 05-21-2024 14:11-0500 Diastolic blood pressure 54 mm[Hg] Caleb Easton MD Work Phone: [facility] 05-21-2024 14:11-0500 Systolic blood pressure 92 mm[Hg] Claeb Easton MD Work Phone: [facility] 04-16-2024 15:10-0400 Body height 157.5 cm Gale Bassett OUTREACH COORDINATOR.BANKING MANAGEMENT CONSULTING MANAGER Work Phone: [facility] 04-16-2024 15:10-0400 Body mass index (BMI) [Ratio] 17.44 kg/m2 Gale Bassett OUTREACH COORDINATOR.BANKING MANAGEMENT CONSULTING MANAGER Work Phone: [facility] 04-16-2024 15:10-0400 Body weight 43.25 kg Gale Bassett OUTREACH COORDINATOR.BANKING MANAGEMENT CONSULTING MANAGER Work Phone: [facility] 04-16-2024 15:10-0400 Diastolic blood pressure 78 mm[Hg] Gale Gregoria OUTREACH COORDINATOR.BANKING MANAGEMENT CONSULTING MANAGER Work Phone: [facility] 04-16-2024 15:10-0400 Heart rate 83 /min Gale Bassett OUTREACH COORDINATOR.BANKING MANAGEMENT CONSULTING MANAGER Work Phone: [facility] 04-16-2024 15:10-0400 Systolic blood pressure 120 mm[Hg] Gale Davenport OUTREACH COORDINATOR.BANKING MANAGEMENT CONSULTING MANAGER Work Phone: [facility] 04-02-2024 10:48-0400 Body height 157.48 cm [facility] 04-02-2024 10:48-0400 Body mass index (BMI) [Ratio] 18 kg/m2 [facility] 04-02-2024 10:48-0400 Body weight 44.7 kg [facility] 04-02-2024 10:48-0400 Diastolic blood pressure 72 mm[Hg] [facility] 04-02-2024 10:48-0400 Heart rate 64 /min [facility] 04-02-2024 10:48-0400 Systolic blood pressure 112 mm[Hg] [facility] 02-16-2024 10:44-0400 Body height 157.5 cm Caleb Easton MD Work Phone: [facility] 02-16-2024 10:44-0400 Body mass index (BMI) [Ratio] 18.11 kg/m2 Caleb Easton MD Work Phone: [facility] 02-16-2024 10:44-0400 Body weight 44.91 kg Caleb Easton MD Work Phone: [facility] 12-28-2023 13:07-0400 Body height 157.5 cm Jaja Rice OUTREACH COORDINATOR-BANKING MANAGEMENT CONSULTING MANAGER Work Phone: [facility] 12-28-2023 13:07-0400 Body mass index (BMI) [Ratio] 17.19 kg/m2 Jaja Rice OUTREACH COORDINATOR-BANKING MANAGEMENT CONSULTING MANAGER Work Phone: [facility] 12-28-2023 13:07-0400 Body weight 42.64 kg Jaja Tommy OUTREACH COORDINATOR-BANKING MANAGEMENT CONSULTING MANAGER Work Phone: [facility] 12-28-2023 13:07-0400 Diastolic blood pressure 78 mm[Hg] Jaja Rice OUTREACH COORDINATOR-BANKING MANAGEMENT CONSULTING MANAGER Work Phone: [facility] 12-28-2023 13:07-0400 Heart rate 102 /min Jaja Rice OUTREACH COORDINATOR-BANKING MANAGEMENT CONSULTING MANAGER Work Phone: [facility] 12-28-2023 13:07-0400 Systolic blood pressure 116 mm[Hg] Jaja Rice APRN-BANKING MANAGEMENT CONSULTING MANAGER Work Phone: [facility] [employer] [facility] 12-01-2023 20:12-0400 Heart rate 97 /min Aman Tapia MD Work Phone: [employer] 12-01-2023 20:12-0400 Respiratory rate 11 /min [facility] MD [facility] 12-01-2023 20:12-0400 SaO2% (BldA) [Mass fraction] 99 % Aman Tapia MD Work Phone: [employer] [facility] 12-01-2023 18:00-0400 Diastolic blood pressure 64 mm[Hg] A[facility] MD [facility] 12-01-2023 18:00-0400 Systolic blood pressure 104 mm[Hg] Aman Tapia MD [facility] 12-01-2023 16:22-0400 Body temperature 97.9 [degF] Aman Tapia MD Work Phone: [facility] [employer] 12-01-2023 16:19-0400 Body height 157.5 cm Aman Tapia MD [facility] 12-01-2023 16:19-0400 Body mass index (BMI) [Ratio] 17.19 kg/m2 Aman Tapia MD [facility] 12-01-2023 16:19-0400 Body weight 42.64 kg Aman Tapia MD Work Phone: [employer] 11-15-2023 12:53-0400 Body height 157.5 cm Jaja Rice APRN-BANKING MANAGEMENT CONSULTING MANAGER Work Phone: [facility] [employer] [facility] 11-15-2023 12:53-0400 Body mass index (BMI) [Ratio] 18.66 kg/m2 Jaja Rice APRN-BANKING MANAGEMENT CONSULTING MANAGER Work Phone: [facility] 11-15-2023 12:53-0400 Body weight 46.27 kg Jaja Rice OUTREACH COORDINATOR-BANKING MANAGEMENT CONSULTING MANAGER Work Phone: [facility] 11-15-2023 12:53-0400 Diastolic blood pressure 79 mm[Hg] Jaja Rice OUTREACH COORDINATOR-BANKING MANAGEMENT CONSULTING MANAGER Work Phone: [facility] 11-15-2023 12:53-0400 Heart rate 64 /min Jaja Rice APRN-BANKING MANAGEMENT CONSULTING MANAGER Work Phone: [facility] 11-15-2023 12:53-0400 Systolic blood pressure 121 mm[Hg] Jaja Rice OUTREACH COORDINATOR-BANKING MANAGEMENT CONSULTING MANAGER Work Phone: [facility] 10-10-2023 10:03-0400 Body height 159 cm Bph 2 [facility] 10-10-2023 10:03-0400 Body mass index (BMI) [Ratio] 18.31 kg/m2 Bph 2 [facility] 10-10-2023 10:03-0400 Body temperature 96.4 [degF] Bph 2 [facility] 10-10-2023 10:03-0400 Body weight 46.3 kg Bph 2 [facility] 10-10-2023 10:03-0400 Diastolic blood pressure 73 mm[Hg] Bph 2 [facility] 10-10-2023 10:03-0400 Heart rate 61 /min Bph 2 [facility] 10-10-2023 10:03-0400 Respiratory rate 16 /min Bph 2 [facility] 10-10-2023 10:03-0400 SaO2% (BldA) [Mass fraction] 100 % Bph 2 [facility] 10-10-2023 10:03-0400 Systolic blood pressure 111 mm[Hg] Bph 2 [facility] 09-20-2023 11:27-0400 Body height 154.9 cm Jaja Rice APRN-BANKING MANAGEMENT CONSULTING MANAGER Work Phone: [facility] 09-20-2023 11:27-0400 Body mass index (BMI) [Ratio] 19.84 kg/m2 Jaja Rice OUTREACH COORDINATOR-BANKING MANAGEMENT CONSULTING MANAGER Work Phone: [facility] 09-20-2023 11:27-0400 Body weight 47.63 kg Jaja Rice OUTREACH COORDINATOR-BANKING MANAGEMENT CONSULTING MANAGER Work Phone: [facility] 09-20-2023 11:27-0400 Diastolic blood pressure 76 mm[Hg] Jaja Rice OUTREACH COORDINATOR-BANKING MANAGEMENT CONSULTING MANAGER Work Phone: [facility] 09-20-2023 11:27-0400 Heart rate 74 /min Jaja Rice OUTREACH COORDINATOR-BANKING MANAGEMENT CONSULTING MANAGER Work Phone: [facility] 09-20-2023 11:27-0400 Systolic blood pressure 108 mm[Hg] Jaja Rice OUTREACH COORDINATOR-BANKING MANAGEMENT CONSULTING MANAGER Work Phone: [facility] 09-19-2023 15:05-0400 Body height 154.9 cm Nette Lackey MD Work Phone: [facility] 09-19-2023 15:05-0400 Body mass index (BMI) [Ratio] 19.88 kg/m2 Nette Lackey MD Work Phone: [facility] 09-19-2023 15:05-0400 Body weight 47.72 kg Nette Lackey MD Work Phone: [facility] 09-19-2023 15:05-0400 Diastolic blood pressure 62 mm[Hg] Nette Lackey MD Work Phone: [facility] 09-19-2023 15:05-0400 Systolic blood pressure 104 mm[Hg] Nette Lackey MD Work Phone: [facility] 09-13-2023 10:06-0400 Body height 154.9 cm Nette Lackey MD Work Phone: [facility] 09-13-2023 10:06-0400 Body mass index (BMI) [Ratio] 20.97 kg/m2 Nette Lackey MD Work Phone: [facility] 09-13-2023 10:06-0400 Body weight 50.35 kg Nette Lackey MD Work Phone: [facility] 09-13-2023 10:06-0400 Diastolic blood pressure 78 mm[Hg] Nette Lackey MD Work Phone: [facility] 09-13-2023 10:06-0400 Systolic blood pressure 110 mm[Hg] Nette Lackey MD Work Phone: [facility] 09-07-2023 13:00-0400 Body height 154.9 cm Enriqueta OSMAN Work Phone: [facility] 09-07-2023 13:00-0400 Body mass index (BMI) [Ratio] 19.84 kg/m2 Enriqueta OSMAN Work Phone: [facility] 09-07-2023 13:00-0400 Body weight 47.63 kg Enriqueta OSMAN Work Phone: [facility] 09-07-2023 13:00-0400 Diastolic blood pressure 81 mm[Hg] Enriqueta OSMAN Work Phone: [facility] 09-07-2023 13:00-0400 Heart rate 73 /min Enriqueta OSMAN Work Phone: [facility] 09-07-2023 13:00-0400 Systolic blood pressure 117 mm[Hg] Enriqueta OSMAN Work Phone: [facility] 08-10-2023 12:52-0500 Body height 154.9 cm Lavonne Thomas OIL TANKER CAPTAIN Work Phone: [facility] 08-10-2023 12:52-0500 Body mass index (BMI) [Ratio] 20.03 kg/m2 Lavonne Thomas OIL TANKER CAPTAIN Work Phone: [facility] 08-10-2023 12:52-0500 Body weight 48.08 kg Lavonne Thomas OIL TANKER CAPTAIN Work Phone: [facility] 08-10-2023 12:52-0500 Diastolic blood pressure 70 mm[Hg] Lavonne Thomas OIL TANKER CAPTAIN Work Phone: [facility] 08-10-2023 12:52-0500 Systolic blood pressure 120 mm[Hg] Lavonne Thomas OIL TANKER CAPTAIN Work Phone: [facility] 07-07-2023 11:19-0500 Body height 154.9 cm Enriqueta Tse PA Work Phone: [facility] 07-07-2023 11:19-0500 Diastolic blood pressure 59 mm[Hg] Enriqueta OSMAN Work Phone: [facility] 07-07-2023 11:19-0500 Heart rate 65 /min Enriqueta OSMAN Work Phone: [facility] 07-07-2023 11:19-0500 Systolic blood pressure 100 mm[Hg] Enriqueta OSMAN Work Phone: [facility] 05-12-2023 17:00-0500 Diastolic blood pressure 56 mm[Hg] DO Akvin House Work Phone: [facility] 05-12-2023 17:00-0500 Heart rate 68 /min DO Kavin House Work Phone: [facility] 05-12-2023 17:00-0500 Respiratory rate 16 /min DO Kavin House Work Phone: [facility] 05-12-2023 17:00-0500 SaO2% (BldA) [Mass fraction] 98 % DO Kavin House Work Phone: [facility] 05-12-2023 17:00-0500 Systolic blood pressure 107 mm[Hg] DO Kavin House Work Phone: [facility] 05-12-2023 13:28-0500 Body height 154.94 cm DO Kavin House Work Phone: [facility] 05-12-2023 13:28-0500 Body weight 48.1 kg DO Kavin House Work Phone: [facility] 05-12-2023 13:27-0500 Body temperature 97.6 [degF] DO Kavin House Work Phone: [facility] 04-12-2023 14:17-0400 Diastolic blood pressure 80 mm[Hg] DO Kavin House Work Phone: [facility] 04-12-2023 14:17-0400 Heart rate 77 /min DO Kavin House Work Phone: [facility] 04-12-2023 14:17-0400 Respiratory rate 16 /min DO Kavin House Work Phone: [facility] 04-12-2023 14:17-0400 SaO2% (BldA) [Mass fraction] 99 % DO Kavin House Work Phone: [facility] 04-12-2023 14:17-0400 Systolic blood pressure 121 mm[Hg] DO Kavin House Work Phone: [facility] 04-12-2023 12:17-0400 Body height 154.94 cm DO Kavin House Work Phone: [facility] 04-12-2023 12:17-0400 Body temperature 97.8 [degF] DO Kavin House Work Phone: [facility] 04-12-2023 12:17-0400 Body weight 49 kg DO Kavin House Work Phone: [facility] 03-23-2023 15:14-0400 Body temperature 98.3 [degF] DO Kavin House Work Phone: [facility] 03-23-2023 15:14-0400 Diastolic blood pressure 68 mm[Hg] DO Kavin House Work Phone: [facility] 03-23-2023 15:14-0400 Heart rate 66 /min DO Kavin House Work Phone: [facility] 03-23-2023 15:14-0400 Respiratory rate 17 /min DO Kavin House Work Phone: [facility] 03-23-2023 15:14-0400 SaO2% (BldA) [Mass fraction] 100 % DO Kavin House Work Phone: [facility] 03-23-2023 15:14-0400 Systolic blood pressure 115 mm[Hg] DO Kavin House Work Phone: [facility] 03-23-2023 12:38-0400 Body height 154.94 cm DO Kavin House Work Phone: [facility] 03-23-2023 12:38-0400 Body weight 48.7 kg DO Kavin House Work Phone: [facility] 03-11-2023 15:14-0400 Diastolic blood pressure 55 mm[Hg] DO Kavin House Work Phone: [facility] 03-11-2023 15:14-0400 Heart rate 80 /min DO Kavin House Work Phone: [facility] 03-11-2023 15:14-0400 Respiratory rate 18 /min DO Kavin House Work Phone: [facility] 03-11-2023 15:14-0400 SaO2% (BldA) [Mass fraction] 100 % DO Kavin House Work Phone: [facility] 03-11-2023 15:14-0400 Systolic blood pressure 95 mm[Hg] DO Kavin House Work Phone: [facility] 03-11-2023 12:02-0400 Body height 162.56 cm DO Kavin House Work Phone: [facility] 03-11-2023 12:02-0400 Body temperature 98.8 [degF] DO Kavin House Work Phone: [facility] 03-11-2023 12:02-0400 Body weight 42.18 kg DO [employer] Work Phone: [facility] 02-06-2023 18:33-0400 Diastolic blood pressure 69 mm[Hg] Stefanie Ortez MD [facility] [employer] 02-06-2023 18:33-0400 Heart rate 88 /min [facility] [employer] 02-06-2023 18:33-0400 Respiratory rate 26 /min [facility] [employer] 02-06-2023 18:33-0400 SaO2% (BldA) [Mass fraction] 99 % Stefanie Ortez MD [facility] [employer] 02-06-2023 18:33-0400 Systolic blood pressure 111 mm[Hg] Stefanie Ortez MD [facility] [employer] 02-06-2023 17:04-0400 Body height 154.9 cm [facility] [employer] 02-06-2023 17:04-0400 Body mass index (BMI) [Ratio] 18.33 kg/m2 Stefanie Ortez MD [facility] [employer] 02-06-2023 17:04-0400 Body temperature 98.8 [degF] Stefanie Ortez MD [facility] [employer] 02-06-2023 17:04-0400 Body weight 44 kg Stefanie Ortez MD [facility] [employer] 09-13-2022 12:30-0400 Body temperature 97 [degF] DO Sightly Work Phone: [facility] 09-13-2022 12:00-0400 Diastolic blood pressure 76 mm[Hg] DO Kavin House Work Phone: [facility] 09-13-2022 12:00-0400 Heart rate 68 /min DO Kavin House Work Phone: [facility] 09-13-2022 12:00-0400 Respiratory rate 20 /min DO Kavin House Work Phone: [facility] 09-13-2022 12:00-0400 SaO2% (BldA) [Mass fraction] 100 % DO Kavin House Work Phone: [facility] 09-13-2022 12:00-0400 Systolic blood pressure 114 mm[Hg] DO Kavin House Work Phone: [facility] 09-13-2022 10:41-0400 Body height 154.94 cm DO Kavin House Work Phone: [facility] 09-13-2022 10:41-0400 Body weight 46.9 kg DO Kavin House Work Phone: [facility] 08-30-2022 12:23-0500 Diastolic blood pressure 72 mm[Hg] DO Kavin House Work Phone: [facility] 08-30-2022 12:23-0500 Heart rate 82 /min DO Kavin House Work Phone: [facility] 08-30-2022 12:23-0500 Respiratory rate 16 /min DO Kavin House Work Phone: [facility] 08-30-2022 12:23-0500 SaO2% (BldA) [Mass fraction] 100 % DO Kavin House Work Phone: [facility] 08-30-2022 12:23-0500 Systolic blood pressure 114 mm[Hg] DO Kavin House Work Phone: [facility] 08-30-2022 10:51-0500 Body height 154.94 cm DO Kavin House Work Phone: [facility] 08-30-2022 10:51-0500 Body weight 50.1 kg DO Kavin House Work Phone: [facility] 08-30-2022 10:50-0500 Body temperature 98.5 [degF] DO Kavin House Work Phone: [facility] 08-18-2022 13:04-0500 Diastolic blood pressure 62 mm[Hg] DO Kavin House Work Phone: [facility] 08-18-2022 13:04-0500 Heart rate 68 /min DO Kavin House Work Phone: [facility] 08-18-2022 13:04-0500 Respiratory rate 18 /min DO Kavin House Work Phone: [facility] 08-18-2022 13:04-0500 SaO2% (BldA) [Mass fraction] 100 % DO Kavin House Work Phone: [facility] 08-18-2022 13:04-0500 Systolic blood pressure 95 mm[Hg] DO Kavin House Work Phone: [facility] 08-18-2022 11:09-0500 Body height 154.94 cm DO Kavin House Work Phone: [facility] 08-18-2022 11:09-0500 Body temperature 97.8 [degF] DO Kavin House Work Phone: [facility] 08-18-2022 11:09-0500 Body weight 46.6 kg DO Kavin House Work Phone: [facility] 07-27-2022 13:11-0500 Body temperature 96.9 [degF] DO [place] Work Phone: [facility] 07-27-2022 12:58-0500 Diastolic blood pressure 67 mm[Hg] DO [place] Work Phone: [facility] 07-27-2022 12:58-0500 Heart rate 52 /min DO [place] Work Phone: [facility] 07-27-2022 12:58-0500 Respiratory rate 18 /min DO [place] Work Phone: [facility] 07-27-2022 12:58-0500 SaO2% (BldA) [Mass fraction] 100 % DO [place] Work Phone: [facility] 07-27-2022 12:58-0500 Systolic blood pressure 111 mm[Hg] DO [place] Work Phone: [facility] 07-27-2022 12:04-0500 Body height 154.94 cm DO [place] Work Phone: [facility] 07-27-2022 12:04-0500 Body weight 47.2 kg DO [place] Work Phone: [facility] 05-18-2022 12:29-0500 Body temperature 97.8 [degF] DO Tommy Jessi Work Phone: [facility] 05-18-2022 12:29-0500 Diastolic blood pressure 63 mm[Hg] DO Tommy Jessi Work Phone: [facility] 05-18-2022 12:29-0500 Heart rate 63 /min DO Tommy Jessi Work Phone: [facility] 05-18-2022 12:29-0500 Respiratory rate 18 /min DO Tommy Jessi Work Phone: [facility] 05-18-2022 12:29-0500 SaO2% (BldA) [Mass fraction] 100 % DO Tommy Jessi Work Phone: [facility] 05-18-2022 12:29-0500 Systolic blood pressure 103 mm[Hg] DO Tommy Jessi Work Phone: [facility] 05-18-2022 11:02-0500 Body height 175.26 cm DO Tommy Jessi Work Phone: [facility] 05-18-2022 11:02-0500 Body weight 48.08 kg DO Tommy Jessi Work Phone: [facility] 04-22-2022 13:59-0400 Diastolic blood pressure 74 mm[Hg] DO Tommy Jessi Work Phone: [facility] 04-22-2022 13:59-0400 Heart rate 59 /min DO Tommy Jessi Work Phone: [facility] 04-22-2022 13:59-0400 Respiratory rate 16 /min DO Tommy Jessi Work Phone: [facility] 04-22-2022 13:59-0400 SaO2% (BldA) [Mass fraction] 100 % DO Tommy Jessi Work Phone: [facility] 04-22-2022 13:59-0400 Systolic blood pressure 116 mm[Hg] DO Tommy Jessi Work Phone: [facility] 04-22-2022 10:58-0400 Body height 154.94 cm DO Tommy Jessi Work Phone: [facility] 04-22-2022 10:58-0400 Body temperature 97.1 [degF] DO Tommy Jessi Work Phone: [facility] 04-22-2022 10:58-0400 Body weight 49 kg DO Tommy Jessi Work Phone: [facility] 04-05-2022 13:19-0400 Diastolic blood pressure 74 mm[Hg] DO Tommy Jessi Work Phone: [facility] 04-05-2022 13:19-0400 Heart rate 74 /min DO Tommy Jessi Work Phone: [facility] 04-05-2022 13:19-0400 Respiratory rate 16 /min DO Tommy Jessi Work Phone: [facility] 04-05-2022 13:19-0400 SaO2% (BldA) [Mass fraction] 99 % DO Tommy Jessi Work Phone: [facility] 04-05-2022 13:19-0400 Systolic blood pressure 111 mm[Hg] DO Tommy Jessi Work Phone: [facility] 04-05-2022 10:33-0400 Body height 154.94 cm DO Tommy Jessi Work Phone: [facility] 04-05-2022 10:33-0400 Body temperature 97.1 [degF] DO Tommy Jessi Work Phone: [facility] 04-05-2022 10:33-0400 Body weight 51.9 kg DO Tommy Jessi Work Phone: [facility] 03-30-2022 12:51-0400 Diastolic blood pressure 71 mm[Hg] DO Tommy Jessi Work Phone: [facility] 03-30-2022 12:51-0400 Heart rate 81 /min DO Tommy Jessi Work Phone: [facility] 03-30-2022 12:51-0400 Respiratory rate 16 /min DO Tommy Jessi Work Phone: [facility] 03-30-2022 12:51-0400 SaO2% (BldA) [Mass fraction] 98 % DO Tommy Jessi Work Phone: [facility] 03-30-2022 12:51-0400 Systolic blood pressure 113 mm[Hg] DO Tommy Jessi Work Phone: [facility] 03-30-2022 12:07-0400 Body height 154.94 cm DO Tommy Jessi Work Phone: [facility] 03-30-2022 12:07-0400 Body weight 48.08 kg DO Tommy Jessi Work Phone: [facility] 03-30-2022 11:03-0400 Body temperature 97.7 [degF] DO Tommy Jessi Work Phone: [facility] 03-19-2022 12:02-0400 Diastolic blood pressure 66 mm[Hg] DO Tommy Jessi Work Phone: [facility] 03-19-2022 12:02-0400 Heart rate 61 /min DO Tommy Jessi Work Phone: [facility] 03-19-2022 12:02-0400 Respiratory rate 18 /min DO Tommy Jessi Work Phone: [facility] 03-19-2022 12:02-0400 SaO2% (BldA) [Mass fraction] 100 % DO Tommy Jessi Work Phone: [facility] 03-19-2022 12:02-0400 Systolic blood pressure 125 mm[Hg] DO Tommy Jessi Work Phone: [facility] 03-19-2022 11:03-0400 Body height 154.94 cm DO Tommy Jessi Work Phone: [facility] 03-19-2022 11:03-0400 Body temperature 97.3 [degF] DO Tommy Jessi Work Phone: [facility] 03-19-2022 11:03-0400 Body weight 53.5 kg DO Tommy Jessi Work Phone: [facility] 02-25-2022 12:00-0400 Diastolic blood pressure 63 mm[Hg] DO Tommy Jessi Work Phone: [facility] 02-25-2022 12:00-0400 Heart rate 71 /min DO Tommy Jessi Work Phone: [facility] 02-25-2022 12:00-0400 Respiratory rate 14 /min DO Tommy Jessi Work Phone: [facility] 02-25-2022 12:00-0400 SaO2% (BldA) [Mass fraction] 99 % DO Tommy Jessi Work Phone: [facility] 02-25-2022 12:00-0400 Systolic blood pressure 112 mm[Hg] DO Tommy Jessi Work Phone: [facility] 02-25-2022 11:07-0400 Body height 162.56 cm DO Tommy Jessi Work Phone: [facility] 02-25-2022 11:07-0400 Body temperature 98.4 [degF] DO Tommy Jessi Work Phone: [facility] 02-25-2022 11:07-0400 Body weight 50.2 kg DO Tommy Jessi Work Phone: [facility] 09-28-2021 13:35-0400 Diastolic blood pressure 73 mm[Hg] DO Kavin House Work Phone: [facility] 09-28-2021 13:35-0400 Heart rate 71 /min DO Kavin House Work Phone: [facility] 09-28-2021 13:35-0400 Respiratory rate 18 /min DO Kavin House Work Phone: [facility] 09-28-2021 13:35-0400 SaO2% (BldA) [Mass fraction] 100 % DO Kavin House Work Phone: [facility] 09-28-2021 13:35-0400 Systolic blood pressure 113 mm[Hg] DO Kavin House Work Phone: [facility] 09-28-2021 11:40-0400 Body height 154.94 cm DO Kavin House Work Phone: [facility] 09-28-2021 11:40-0400 Body mass index (BMI) [Ratio] 19.5 kg/m2 DO Kavin House Work Phone: [facility] 09-28-2021 11:40-0400 Body temperature 98 [degF] DO Kavin House Work Phone: [facility] 09-28-2021 11:40-0400 Body weight 47 kg DO Kavin House Work Phone: [facility] 09-09-2021 13:05-0400 Diastolic blood pressure 65 mm[Hg] DO Kavin House Work Phone: [facility] 09-09-2021 13:05-0400 Heart rate 81 /min DO Kavin House Work Phone: [facility] 09-09-2021 13:05-0400 Respiratory rate 20 /min DO Kavin House Work Phone: [facility] 09-09-2021 13:05-0400 SaO2% (BldA) [Mass fraction] 100 % DO Kavin House Work Phone: [facility] 09-09-2021 13:05-0400 Systolic blood pressure 107 mm[Hg] DO Kavin House Work Phone: [facility] 09-09-2021 11:12-0400 Body height 154.94 cm DO Kavin House Work Phone: [facility] 09-09-2021 11:12-0400 Body mass index (BMI) [Ratio] 19.5 kg/m2 DO Kavin House Work Phone: [facility] 09-09-2021 11:12-0400 Body weight 47 kg DO Kavin House Work Phone: [facility] 09-09-2021 11:05-0400 Body temperature 97.8 [degF] DO Kavin House Work Phone: [facility] 08-12-2021 14:30-0500 Diastolic blood pressure 60 mm[Hg] DO Kavin House Work Phone: [facility] 08-12-2021 14:30-0500 Heart rate 68 /min DO Kavin House Work Phone: [facility] 08-12-2021 14:30-0500 Respiratory rate 21 /min DO Kavin French Work Phone: [facility] 08-12-2021 14:30-0500 SaO2% (BldA) [Mass fraction] 99 % DO Kavin House Work Phone: [facility] 08-12-2021 14:30-0500 Systolic blood pressure 102 mm[Hg] DO Kavin House Work Phone: [facility] 08-12-2021 10:45-0500 Body height 154.94 cm DO Kavin House Work Phone: [facility] 08-12-2021 10:45-0500 Body mass index (BMI) [Ratio] 43.7 kg/m2 DO Kavin House Work Phone: [facility] 08-12-2021 10:45-0500 Body weight 105.1 kg DO Kavin House Work Phone: [facility] 08-12-2021 10:35-0500 Body temperature 97.5 [degF] DO Kavin House Work Phone: [facility] 08-07-2021 12:50-0500 Diastolic blood pressure 74 mm[Hg] DO Kavin House Work Phone: [facility] 08-07-2021 12:50-0500 Heart rate 91 /min DO Kavin House Work Phone: [facility] 08-07-2021 12:50-0500 Respiratory rate 16 /min DO Kavin House Work Phone: [facility] 08-07-2021 12:50-0500 SaO2% (BldA) [Mass fraction] 100 % DO Kavin House Work Phone: [facility] 08-07-2021 12:50-0500 Systolic blood pressure 107 mm[Hg] DO Kavin House Work Phone: [facility] 07-10-2021 12:55-0500 Diastolic blood pressure 72 mm[Hg] DO Kavin House Work Phone: [facility] 07-10-2021 12:55-0500 Heart rate 58 /min DO Kavin House Work Phone: [facility] 07-10-2021 12:55-0500 Respiratory rate 18 /min DO Kavin House Work Phone: [facility] 07-10-2021 12:55-0500 SaO2% (BldA) [Mass fraction] 100 % DO Kavin House Work Phone: [facility] 07-10-2021 12:55-0500 Systolic blood pressure 110 mm[Hg] DO Sightly Work Phone: [facility] 07-10-2021 10:57-0500 Body height 154.94 cm DO Sightly Work Phone: [facility] 07-10-2021 10:57-0500 Body mass index (BMI) [Ratio] 20.5 kg/m2 DO Sightly Work Phone: [facility] 07-10-2021 10:57-0500 Body temperature 97.5 [degF] DO [employer]ight[employer] Work Phone: [facility] 07-10-2021 10:57-0500 Body weight 49.4 kg DO Sightly Work Phone: [facility] Encounters Encounter Date Encounter Type Care Provider Facility Start: 03-06-2025 End: 03-06-2025 Office outpatient visit 25 minutes Kings Robles MD Work Phone: [facility] Comment on above: Palpitations (Primar y Dx); Supraventricular tachycardia, unspecified; Implantable loop recorder present; Family history of hypertrophic cardiomyopathy; Shortness of breath; Dizziness and giddiness; Never smoked tobacco; Body mass index (BMI) of 19.0 to 19.9 in adult Start: 03-06-2025 End: 03-06-2025 ambulatory [facility] Start: 02-28-2025 End: 02-28-2025 [facility]ad [facility] Comment on above: 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 Start: 02-26-2025 End: 02-26-2025 Telemedicine consultation with patient Tammy HONGISABEL Work Phone: Adult Psychology Start: 02-26-2025 End: 02-26-2025 Patient encounter procedure Kings Robles MD -Pacemaker Check Start: 02-26-2025 End: 02-26-2025 ambulatory Kavin French DO Work Phone: [facility] Work Phone: Comment on above: PTSD (post-traumatic stress disorder) (Primary Dx); Gastroparesis Start: 02-26-2025 Non-patient / Non-visit [facility] Start: 02-19-2025 End: 02-19-[address] Work Phone: Gastroenterology Comment on above: Gastroparesis (Prima ry Dx) Start: 02-19-2025 End: 02-19-2025 Admission to same day surgery center Josey Soto Cindy DO Work Phone: General Surgery Comment on above: Gastroparesis (Prima ry Dx); Gastroesophageal reflux disease, unspecified whether esophagitis present; Chronic idiopathic constipation; Dyssynergic defecation; Abnormal weight loss Start: 02-19-2025 End: 02-19-2025 Telemedicine consultation with patient Josey Soto Cindy DO Work Phone: General Surgery Start: 02-19-2025 End: 02-19-2025 ambulatory JOSEY Charles WHITE Facility:[facility] Start: 02-16-2025 End: 02-16-2025 Emergency department patient visit KAVIN FRENCH [facility] Start: 02-15-2025 End: 02-15-2025 Bamboo flowsheet Lavonne Thomas OIL TANKER CAPTAIN Work Phone: [facility] Start: 02-15-2025 End: 02-15-2025 Bamboo flowsheet Lavonne Thomas OIL TANKER CAPTAIN Work Phone: [facility] Start: 02-15-2025 End: 02-15-2025 Office outpatient visit 25 minutes Lavonne Thomas OIL TANKER CAPTAIN [facility] Phone: [facility] Comment on above: Intractable chronic migraine without aura and without status migrainosus (Primary Dx); Chronic migraine without aura without status migrainosus, not intractable ; Anxiety Start: 02-12-2025 End: 02-14-2025 Telephone encounter Gale Bassett OUTREACH COORDINATOR.BANKING MANAGEMENT CONSULTING MANAGER Work Phone: Endocrinology Comment on above: Infection Concern Start: 02-06-2025 ambulatory REA SALINAS [facility] Start: 02-06-2025 End: 02-06-2025 Office outpatient visit 25 minutes Sierra Anna OIL TANKER CAPTAIN Work Phone: [facility] Comment on above: Psychogenic nonepile ptic seizure (Primary Dx); Chronic migraine without aura without status migrainosus, not intractable ; Chronic insomnia; Tremor Start: 02-06-2025 End: 02-06-2025 Bamboo flowsheet Sierra Anna OIL TANKER CAPTAIN Work Phone: [facility] Start: 02-06-2025 End: 02-06-2025 Bamboo flowsheet Sierra Anna OIL TANKER CAPTAIN Work Phone: [facility] Start: 02-05-2025 End: 02-07-2025 Telephone encounter Gale Bassett OUTREACH COORDINATOR.BANKING MANAGEMENT CONSULTING MANAGER Work Phone: Endocrinology Comment on above: Medication Problem ( Blood-Glucose Sensor (FREESTYLE GOYO 3 PLUS SENSOR) efrain) Start: 01-23-2025 End: 01-23-2025 Office consultation new/estab patient 80 min Kings Robles MD Work Phone: [facility] Comment on above: Supraventricular tac hycardia, unspecified; Shortness of breath; Palpitations; Dizziness and giddiness; Implantable loop recorder present; Family history of hypertrophic cardiomyopathy; Never smoked tobacco; BMI < 18.5 Start: 01-23-2025 End: 01-23-2025 ambulatory [facility] Start: 01-23-2025 ambulatory [facility] Start: 01-10-2025 End: 01-10-2025 Telephone encounter [facility] Start: 01-07-2025 End: 01-07-2025 Refill Caleb Easton MD Work Phone: [facility] Comment on above: Intractable complex partial epilepsy (HCC); Focal epilepsy with impairment of consciousness, intractable (HCC); Epilepsy, 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HCC) Ambulatory Social Wo rk Start: 01-04-2025 End: 01-04-2025 Patient encounter procedure Gale Bassett OUTREACH COORDINATOR.BANKING MANAGEMENT CONSULTING MANAGER Work Phone: Endocrinology Comment on above: Hypoglycemia (Primar y Dx); Vision changes; Gastroparesis; Abnormal weight loss; Mild protein-calorie malnutrition (HCC); Emesis, persistent Start: 01-04-2025 End: 01-04-2025 ambulatory GALE BASSETT Facility:[facility] Start: 01-03-2025 End: 01-03-2025 Office outpatient visit 25 minutes Lavonne Thomas OIL TANKER CAPTAIN Work Phone: [facility] Comment on above: Psychogenic nonepile ptic seizure (Primary Dx); Tachycardia; Syncope, unspecified syncope type; Migraine without aura and without status migrainosus, not intractable ; Seizure disorder (HCC) Start: 01-03-2025 End: 01-03-2025 Bamboo flowsheet Lavonne Thomas OIL TANKER CAPTAIN Work Phone: [facility] Start: 01-03-2025 End: 01-03-2025 Bamboo flowsheet Lavonne Thomas OIL TANKER CAPTAIN Work Phone: [facility] Start: 01-02-2025 ambulatory DO KAVIN FRENCH Fac lity:[facility] Start: 12-15-2024 End: 12-16-2024 Emergency department patient visit KAVIN FRENCH [facility] Start: 12-06-2024 End: 12-06-2024 Bamboo flowsheet Caleb Easton MD Work Phone: [facility] Start: 12-06-2024 End: 12-06-2024 Bamboo flowsheet Caleb Easton MD Work Phone: [facility] Start: 12-06-2024 End: 12-06-2024 Office outpatient visit 25 minutes Caleb Easton MD Work Phone: [facility] Comment on above: Psychogenic nonepile ptic seizure (Primary Dx); Migraine without aura and without status migrainosus, not intractable ; Chronic insomnia Start: 11-28-2024 ambulatory [facility] Start: 11-28-2024 End: 11-28-2024 ambulatory [facility] Start: 11-20-2024 End: 11-20-2024 Telephone encounter Jaquelin Sheth [facility] Start: 11-15-2024 ambulatory LAVONNE THOMAS [facility] Start: 11-09-2024 ambulatory [facility] Start: 11-01-2024 End: 11-01-2024 Patient encounter procedure Kavin House DO Work Phone: [facility] Work Phone: Start: 11-01-2024 End: 11-01-2024 ambulatory Kavin House DO Work Phone: [facility] Work Phone: Start: 10-16-2024 End: 10-16-2024 ambulatory [facility] Start: 10-15-2024 Non-patient / Non-visit Mango cali House DO Work Phone: [facility] Work Phone: Start: 10-15-2024 End: 10-15-2024 Admission to same day surgery center Kavin House DO Work Phone: [facility] Work Phone: Start: 10-15-2024 End: 10-15-2024 ambulatory Kavin House DO Work Phone: [facility] Work Phone: Start: 10-12-2024 End: 10-12-2024 Telephone encounter Lavonne Thomas OUTREACH COORDINATOR-BANKING MANAGEMENT CONSULTING MANAGER [facility] [place] Comment on above: Sleep Lab (PSG) Start: 10-11-2024 End: 10-11-2024 Telephone encounter Orders Support User Transcribe [facility] [place] Start: 10-10-2024 End: 10-10-2024 Refill Lavonne Thomas OIL TANKER CAPTAIN Work Phone: [facility] Comment on above: 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 Start: 10-08-2024 End: 10-08-2024 ambulatory NAHUN GONGORA Facility:[facility] Start: 10-08-2024 End: 10-08-2024 Patient encounter procedure Nahun Gongora OD Work Phone: Ophthalmology Comment on above: Type 2 diabetes corina itus without retinopathy (HCC) (Primary Dx); Vision changes; Myopia, bilateral Start: 10-02-2024 ambulatory [facility] Start: 09-27-2024 End: 09-27-2024 ambulatory [facility] Work Phone: Start: 09-27-2024 End: 09-27-[address] [facility] Work Phone: Start: 09-06-2024 End: 09-06-2024 Bamboo flowsheet Lavonne Thomas OIL TANKER CAPTAIN Work Phone: [facility] Start: 09-06-2024 End: 09-06-2024 Bamboo flowsheet Lavonne Thomas OIL TANKER CAPTAIN Work Phone: [facility] Start: 09-04-2024 End: 09-04-2024 Patient encounter procedure Ainsley Graham MD Work Phone: [facility] Comment on above: Acne vulgaris (Prima ry Dx) Start: 09-03-2024 End: 09-03-2024 Office outpatient visit 10 minutes Debbie Mckeon MD Work Phone: [facility] Comment on above: Feeling of incomplet e bladder emptying (Primary Dx); Epilepsy, 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CMS-HCC) Start: 09-03-2024 End: 09-03-[address] [facility] Start: 08-30-2024 ambulatory [facility] Start: 08-16-2024 End: 08-16-2024 Emergency department patient visit KAVIN FRENCH [facility] Start: 08-16-2024 End: 08-16-2024 ambulatory [facility] Start: 08-16-2024 End: 08-16-2024 Office outpatient visit 15 minutes [facility] OUTREACH COORDINATOR-CNM Work Phone: [facility]ne[facility] Comment on above: Abnormal uterine ble eding (AUB) (Primary Dx) Start: 08-15-2024 Non-patient / Non-visit [facility] ER Work Phone: Start: 08-14-2024 End: 08-14-2024 Telephone encounter Calbe Easton MD Work Phone: [facility] Start: 08-09-2024 ambulatory DO KAVIN FRENCH Faci lity:[facility] Start: 08-08-2024 End: 08-08-2024 Telephone encounter Enriqueta Vaca [facility] Surgeons Comment on above: Dysuria (Primary Dx) Start: 08-08-2024 End: 08-08-2024 ambulatory [facility] Start: 08-01-2024 End: 08-01-2024 Telephone encounter Gale Bassett OUTREACH COORDINATOR.BANKING MANAGEMENT CONSULTING MANAGER Work Phone: Endocrinology Start: 07-30-2024 ambulatory [facility] Start: 07-26-2024 End: 07-26-2024 Isabela Graham MD Work Phone: [facility] Start: 07-26-2024 End: 07-26-2024 Isabela Graham MD Work Phone: [facility] Start: 07-26-2024 End: 07-26-2024 Office outpatient visit 25 minutes Ainsley Graham MD Work Phone: [facility] Comment on above: Acne vulgaris (Prima ry Dx) Start: 07-24-2024 End: 07-24-2024 Telephone encounter Caleb Easton MD Work Phone: [facility] 210 Comment on above: Med Refill Start: 07-20-2024 End: 07-20-2024 ambulatory DEBBIE MCKEON [facility] Start: 07-18-2024 End: 07-18-2024 ambulatory GLORIA MTZO Facility:[facility] Start: 07-18-2024 End: 07-18-2024 Nutrition therapy Gloria Zacarias JHONATHAN Work Phone: Diabetic Education [facility] Comment on above: Other specified diab etes mellitus with other specified complication, without long-term current use of insulin (HCC) (Primary Dx); Sensory food aversion; Abnormal weight loss; Mild protein-calorie malnutrition (HCC) Start: 07-18-2024 End: 07-18-2024 Telemedicine consultation with patient Gloria Zacarias RD Work Phone: Diabetic Education [facility] Start: 07-17-2024 End: 07-17-2024 Orders Only Enriqueta Vaca [facility] Comment on above: Hematuria, unspecifi ed type (Primary Dx) Start: 07-08-2024 End: 07-08-2024 Telephone encounter Caleb Easton MD Work Phone: [facility] NE[facility]O 210 Comment on above: Other (yardage caller/) Start: 07-08-2024 Non-patient / Non-visit [facility] ER Work Phone: Start: 07-06-2024 ambulatory [facility] Start: 07-04-2024 End: 07-04-2024 ambulatory KAVIN FRENCH [facility] Start: 07-03-2024 End: 07-03-2024 Refill Caleb Easton MD Work Phone: [facility] Comment on above: 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 Start: 06-29-2024 End: 06-29-2024 Office outpatient visit 15 minutes Debbie Mckeon MD Work Phone: [facility] Gen[facility]Urinary Surgeons Comment on above: Right kidney stone ( Primary Dx); Epilepsy, 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CMS-HCC) Start: 06-29-2024 End: 06-29-2024 [facility] DEBBIE MCKEON [facility] Start: 06-22-2024 End: 06-22-2024 [facility] Start: 06-21-2024 End: 06-22-2024 Refill Gale Bassett APRN.BANKING MANAGEMENT CONSULTING MANAGER Work Phone: Endocrinology Comment on above: Refill Request Start: 06-18-2024 End: 06-18-2024 [facility] Gale Bassett OUTREACH COORDINATOR.BANKING MANAGEMENT CONSULTING MANAGER Work Phone: Endocrinology Comment on above: Hypoglycemia (Primar y Dx); Mild protein-calorie malnutrition (HCC); Social anxiety disorder; Sensory food aversion; Vision changes; Low TSH level; Gender dysphoria; Night sweats; Hematuria, unspecified type; History of kidney stones Start: 06-13-2024 [facility] Start: 06-12-2024 End: 06-12-2024 Refill Caleb Easton MD Work Phone: [facility] NEURO 210 Comment on above: Intractable complex partial epilepsy (CMS/HCC); Focal epilepsy with impairment of consciousness, intractable (CMS/HCC); Epilepsy, 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CMS/HCC) Start: 06-12-2024 End: 06-12-2024 Telephone encounter Caleb Easton MD Work Phone: [facility] NEURO 210 Comment on above: Intractable chronic migraine without aura and without status migrainosus (CMS/HCC) (Primary Dx) Start: 06-08-2024 [facility] Start: 06-05-2024 End: 06-05-2024 [facility] Start: 05-28-2024 End: 05-28-2024 Telephone encounter Caleb Easton MD Work Phone: [facility] Start: 05-28-2024 ambulatory [facility] Start: 05-21-2024 End: 05-21-2024 Bamboo flowsheet Caleb Easton MD Work Phone: [facility] NE[facility]OLOGY Start: 05-21-2024 End: 05-21-2024 Bamboo flowsheet Caleb Easton MD Work Phone: [facility] Start: 05-21-2024 End: 05-21-2024 Office outpatient visit 25 minutes Caleb Easton MD Work Phone: [facility] Comment on above: 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 (Primary Dx); Intractable chronic migraine without aura and without status migrainosus (CMS/HCC); Intractable complex partial epilepsy (CMS/HCC) Start: 05-18-2024 End: 05-18-2024 Telephone encounter Gale Bassett OUTREACH COORDINATOR.BANKING MANAGEMENT CONSULTING MANAGER Work Phone: Endocrinology Comment on above: Question; dexcom 7 Start: 05-11-2024 End: 05-11-2024 ambulatory GALE BASSETT Facility:[facility] Start: 05-09-2024 ambulatory [facility] Start: 05-03-2024 End: 05-03-2024 Bamboo flowsheet Ainsley Graham MD Work Phone: [facility] Start: 05-03-2024 End: 05-03-2024 Bamboo flowsrenetta Graham MD Work Phone: [facility] Start: 05-03-2024 End: 05-03-2024 Office outpatient visit 25 minutes Ainsley Graham MD Work Phone: [facility] Comment on above: Acne vulgaris (Prima ry Dx); Telogen effluvium Start: 05-01-2024 ambulatory [facility] Start: 04-30-2024 End: 04-30-2024 Social Work Basim Stearns BUNCHER OPERATOR Work Phone: Endocrinology Start: 04-16-2024 End: 04-16-2024 ambulatory GALE BASSETT Facility:[facility] Start: 04-16-2024 End: 04-16-2024 Patient encounter procedure Gale Bassett OUTREACH COORDINATOR.BANKING MANAGEMENT CONSULTING MANAGER Work Phone: Endocrinology Comment on above: Other specified diab etes mellitus with other specified complication, without long-term current use of insulin (HCC) (Primary Dx); Sensory food aversion; Abnormal weight loss; Anxiety disorder, unspecified type; Mild protein-calorie malnutrition (HCC); Low TSH level; Low weight; Psychogenic nonepileptic seizure Start: 04-02-2024 End: 04-02-2024 ambulatory [facility] Work Phone: Start: 04-02-2024 End: 04-02-2024 Patient encounter procedure [facility] Gastroenterology Work Phone: Start: 03-27-2024 ambulatory [facility] Start: 03-19-2024 End: 03-20-2024 Refill Caleb Easton MD Work Phone: [facility] NE[facility]O 210 Comment on above: Intractable complex partial epilepsy (CMS/HCC); Focal epilepsy with impairment of consciousness, intractable (CMS/HCC); Epilepsy, 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CMS/HCC) Start: 03-12-2024 ambulatory [facility] Start: 02-16-2024 End: 02-16-2024 Bamboo flowsheet Caleb Easton MD Work Phone: [facility] Start: 02-16-2024 End: 02-16-2024 Bamboo flowsheet Caleb Easton MD Work Phone: [facility] Start: 02-16-2024 Patient encounter status Kali Easton MD Work Phone: [facility] Start: 02-16-2024 End: 02-16-2024 Office outpatient visit 25 minutes Caleb Easton MD Work Phone: [facility] SWS NEUR Comment on above: 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; Insomnia due to medical condition; Seizure disorder (CMS/HCC); Primary insomnia Start: 01-29-2024 Non-patient / Non-visit [facility] Work Phone: Start: 12-28-2023 End: 12-28-2023 Office outpatient visit 10 minutes [facility] Work Phone: [facility] Comment on above: Muscle spasm (Primar y Dx); Chronic bilateral low back pain without sciatica; Chronic bilateral low back pain with bilateral sciatica; Low back pain, unspecified back pain laterality, unspecified chronicity, unspecified whether sciatica present Start: 12-28-2023 End: 12-28-2023 ambulatory [facility] Start: 12-17-2023 End: 12-17-2023 Telephone encounter Nurse Nurse Triage PRESS OPERATOR PRINTING Work Phone: [facility] Start: 12-09-2023 End: 12-09-2023 ambulatory KAVIN FRENCH SR [facility] Hos[facility] michael Start: 12-09-2023 End: 12-09-2023 Subsequent hospital visit by physician Kavin French Sr., DO Work Phone: [facility] Start: 12-06-2023 End: 12-06-2023 ambulatory [facility] Start: 12-02-2023 End: 12-02-2023 ambulatory [facility] Start: 12-01-2023 End: 12-01-2023 Emergency department patient visit Aman Tapia MD Work Phone: [facility] Comment on above: Seizure-like activit y (HCC) (Primary Dx) Start: 12-01-2023 End: 12-01-2023 ambulatory JUDE PARRA [facility] Start: 12-01-2023 End: 12-01-2023 [facility] Start: 11-25-2023 ambulatory KAVIN FRENCH [facility] Start: 11-24-2023 End: 11-30-2023 Evaluation and management of inpatient BEATA DODSON [facility] Start: 11-15-2023 End: 11-15-2023 ambulatory [facility] Start: 11-15-2023 End: 11-15-2023 Office outpatient visit 15 minutes [facility] OUTREACH COORDINATOR-BANKING MANAGEMENT CONSULTING MANAGER Work Phone: [facility] Comment on above: Muscle spasm (Primar y Dx); Chronic bilateral low back pain with bilateral sciatica; Chronic bilateral low back pain, unspecified whether sciatica present; Low back pain, unspecified back pain laterality, unspecified chronicity, unspecified whether sciatica present Start: 10-17-2023 End: 10-17-2023 Telephone encounter Debbie Mckeon MD Work Phone: [facility] Sur[facility] Start: 10-17-2023 End: 10-18-2023 ambulatory [facility] Start: 10-17-2023 End: 10-17-2023 Evaluation and management of inpatient [facility] Start: 10-10-2023 End: 10-10-2023 Patient encounter procedure [facility] Pre-Admission Testing 2 [facility] -Pre Admission Testing Comment on above: Pre-op testing (Prim walker Dx); Gross hematuria Start: 10-10-2023 End: 08-16-2024 Patient encounter status [facility] 2 [facility] Work Phone: Start: 10-10-2023 Encounter for other preprocedural examination RICHLAND ALISA [facility] Start: 10-10-2023 End: 10-12-[address] [facility] Start: 09-27-2023 Orders Only Nette Lackey MD Work Phone: [facility] Obstetrics/Gynecology Start: 09-20-2023 End: 09-20-2023 [facility] Start: 09-20-2023 End: 09-20-2023 Office outpatient new 30 minutes Jaja BriceñoMelvin OUTREACH COORDINATOR-BANKING MANAGEMENT CONSULTING MANAGER Work Phone: [facility] Comment on above: Muscle spasm (Primar y Dx); Chronic bilateral low back pain with bilateral sciatica; Chronic bilateral low back pain, unspecified whether sciatica present Start: 09-19-2023 End: 09-19-2023 Patient encounter procedure Nette Lackey MD Work Phone: [facility]stetric[facility]Gynecology Comment on above: Encounter for initia l prescription of implantable subdermal contraceptive (Primary Dx) Start: 09-19-2023 End: 09-19-2023 ambulatory [facility] Start: 09-15-2023 Telephone encounter Enriqueta OSMAN Work Phone: [facility] Start: 09-13-2023 End: 09-13-2023 Office outpatient new 45 minutes Nette Lackey MD Work Phone: [facility]stetrics[facility]Gynecology Comment on above: Irregular menstrual cycle (Primary Dx); Cyst of left ovary Start: 09-13-2023 End: 09-13-2023 ambulatory [facility] Start: 09-08-2023 ambulatory [facility] Start: 09-07-2023 End: 09-07-2023 ambulatory ENRIQUETA TSE [facility] Comment on above: Neck pain (Primary D x) Low back pain, unspe cified back pain laterality, unspecified chronicity, unspecified whether sciatica present (Primary Dx) Start: 09-07-2023 End: 09-07-2023 Office outpatient visit 25 minutes Enriqueta OSMAN Work Phone: [facility]Urinary Surgeons Comment on above: Right kidney stone ( Primary Dx); Chronic bilateral low back pain with bilateral sciatica; Cyst of left ovary; Gross hematuria Start: 09-07-2023 End: 09-07-2023 ambulatory ENRIQUETA TSE [facility] Start: 08-26-2023 End: 08-26-2023 Evaluation and management of inpatient ROSALINE HARRIS [facility] Start: 08-26-2023 End: 08-26-2023 ambulatory SHAWNEE CHIRINOS [facility] Start: 08-26-2023 End: 08-26-2023 [facility] Start: 08-26-2023 End: 08-26-2023 Evaluation and management of inpatient LINSEY [facility] Start: 08-26-2023 End: 08-26-2023 Evaluation and management of inpatient ÁNGEL POPE [facility] Start: 08-16-2023 Telephone encounter Enriqueta OSMAN Work Phone: [facility] Sur[facility] Start: 08-10-2023 End: 08-10-2023 Office outpatient visit 25 minutes Lavonne Thomas NP Work Phone: [facility] Comment on above: Intractable complex partial epilepsy (CMS/HCC) (Primary Dx); Cervical radiculopathy; Insomnia due to medical condition; Migraine without aura and without status migrainosus, not intractable (CMS/HCC); Memory loss; Neck pain; Cervical paraspinal muscle spasm Start: 08-02-2023 Telephone encounter Enriqueta OSMAN Work Phone: [facility] Start: 07-07-2023 End: 07-07-2023 Office outpatient visit 25 minutes Enriqueta OSMAN Work Phone: [facility] Sur[facility] Comment on above: Right kidney stone ( Primary Dx) Start: 05-12-2023 End: 05-12-2023 Emergency department patient visit DO [facility] Work Phone: [facility] Work Phone: Start: 04-12-2023 End: 04-12-2023 Emergency department patient visit DO Kavin French Work Phone: [facility] Work Phone: Start: 03-23-2023 End: 03-23-2023 Emergency department patient visit DO Kavin French Work Phone: [facility] Work Phone: Start: 03-11-2023 End: 03-11-2023 Emergency department patient visit DO Kavin French Work Phone: [facility] Work Phone: Start: 02-06-2023 End: 02-06-2023 Emergency department patient visit KAVIN FRENCH [facility] Start: 02-06-2023 End: 02-06-2023 Emergency department patient visit Stefanie Ortez MD [facility] ED Comment on above: Seizure (HCC) Start: 09-23-2022 End: 09-24-[address] KAVIN FRENCH Facility:[facility] Start: 09-13-2022 End: 09-13-2022 Emergency department patient visit DO Kavin French Work Phone: [facility] Work Phone: Start: 08-30-2022 End: 08-30-2022 Emergency department patient visit DO Kavin French Work Phone: [facility] Work Phone: Start: 08-18-2022 End: 08-18-2022 Emergency department patient visit DO Kavin French Work Phone: [facility] Work Phone: Start: 07-27-2022 End: 07-27-2022 Emergency department patient visit DO Los Qureshidawson Work Phone: [facility] Work Phone: Start: 06-12-2022 End: 06-13-[address] KAVIN FRENCH Facility:[facility] Start: 05-24-2022 End: 05-24-[address] KAVIN FRENCH Facility:[facility] Start: 05-18-2022 End: 05-18-2022 Emergency department patient visit DO Tommy Jessi Work Phone: [facility] Start: 05-15-2022 End: 05-15-[address] KAVIN FRENCH Facility:[facility] Start: 04-22-2022 End: 04-22-2022 Emergency department patient visit DO Tommy Jessi Work Phone: [facility] Start: 04-05-2022 End: 04-05-2022 Emergency department patient visit DO Tommy Jessi Work Phone: [facility] Start: 03-30-2022 End: 03-30-2022 Emergency department patient visit DO Tommy Jessi Work Phone: [facility] Start: 03-19-2022 End: 03-19-2022 Emergency department patient visit DO Tommy Jessi Work Phone: [facility] Start: 02-25-2022 End: 02-25-2022 Emergency department patient visit DO Tommy Jessi Work Phone: [facility] Start: 01-03-2022 End: 01-03-[address] KAVIN FRENCH Facility:[facility] Start: 11-29-2021 End: 11-29-[address] KAVIN FRENCH Facility:[facility] Start: 10-16-2021 End: 10-16-[address] KAVIN FRENCH Facility:[facility] Start: 09-28-2021 End: 09-28-2021 Emergency department patient visit DO Kavin French Work Phone: [facility] Start: 09-09-2021 End: 09-09-2021 Emergency department patient visit DO Kavin French Work Phone: [facility] Start: 08-20-2021 ambulatory [facility] Peds Endoc rinology Comment on above: Invitation for [facility] study with Dr. Wheat Start: 08-20-2021 E-mail encounter fro m caregiver [facility] Start: 08-18-2021 ambulatory DION F WHITE Facility:[facility] Start: 08-12-2021 End: 08-12-2021 Emergency department patient visit DO Kavin French Work Phone: [facility] Start: 08-07-2021 End: 08-07-2021 Emergency department patient visit DO Kavin French Work Phone: [facility] Start: 07-10-2021 End: 07-10-2021 Emergency department patient visit DO Kavin French Work Phone: [facility] Start: 03-23-2021 End: 03-23-2021 Emergency department patient visit SR KAVIN [facility] Start: 07-20-2017 End: 07-20-2017 Emergency department patient visit ALEXA SAHA [facility] Procedures Date Procedure Procedure Detail Performing Clinician Start: 01-23-2025 Ecg routine ecg w/least 12 lds w/i&r Kings Robles MD Work Phone: Start: 01-04-2025 Hemoglobin A1c/Hemoglobin.total in Blood Gale Bassett OUTREACH COORDINATOR.BANKING MANAGEMENT CONSULTING MANAGER Work Phone: Start: 11-01-2024 Radionuclide gastric emptying study [facility] Work Phone: Start: 10-15-2024 Esophagogastroduodenoscopy Kavin [facility] Work Phone: Start: 09-03-2024 Urnls dip stick/tablet rgnt auto w/o microscopy Debbie Mckeon MD Work Phone: Start: 09-03-2024 MEASURE POST VOID RESIDUAL Debbie Mckeon MD Work Phone: Start: 06-29-2024 Urnls dip stick/tablet rgnt auto w/o microscopy Debbie Mckeon MD Work Phone: Start: 06-29-2024 Follow-up visit Follow-up DEBBIE MCKEON Start: 04-16-2024 Hemoglobin A1c/Hemoglobin.total in Blood Gale Bassett OUTREACH COORDINATOR.BANKING MANAGEMENT CONSULTING MANAGER Work Phone: Start: 12-09-2023 Basic metabolic panel calcium total David Remy MD Start: 12-01-2023 Ct cervical spine w/o contrast material Aman Tapia MD Work Phone: Start: 12-01-2023 Ct head/brain w/o contrast material Eugene Tapia MD Work Phone: Start: 12-01-2023 Basic metabolic panel calcium total Eugene Tapia MD Work Phone: Start: 11-25-2023 Adult depression screening assessment Nurse Nurse Triage PRESS OPERATOR PRINTING Work Phone: Start: 10-10-2023 Culture bacterial quanttative [...] CT of abdomen and pelvis without contrast Kavin Redstone Work Phone: Start: 02-06-2023 Ct head/brain w/o contrast material Stefanie Ortez MD Start: 02-06-2023 End: 02-06-2023 Comprehensive metabolic panel Stefanie Soto Start: 08-30-2022 Urine culture DO Sight[facility] Work Phone: Start: 09-28-2021 Plain chest X-ray DO [facility] Work Phone: Start: 09-09-2021 Urine culture DO [facility] Work Phone: Start: 08-12-2021 Urine culture DO [facility] Work Phone: Start: 08-07-2021 Urine culture DO Kavin House Work Phone: Start: 07-10-2021 Urine culture DO Kavin French Work Phone: Start: 07-10-2021 CT of abdomen and pelvis without contrast DO [facility] Work Phone: Start: 12-05-2017 Electroencephalogram Urine culture DO Tommy Jessi Work Phone: Urine culture DO Tommy Jessi Work Phone: Plan of Treatment Date Care Activity Detail Author Start: 2051 Zoster Vaccines (1 of 2) Zoster Vaccines (1 of 2) [facility] Start: 08-23-2033 DTaP/Tdap/Td Vaccines (2 - Td or Tdap) DTaP/Tdap/Td Vaccines (2 - Td or Tdap) [facility] Start: 08-23-2033 Urine microalbumin profile DTaP,Tdap,Td Vaccine (2 - Td or Tdap) [facility] Start: 11-15-2025 Adult BMI Screening Adult BMI Screening [facility] Start: 10-16-2025 End: 10-16-2025 Patient encounter procedure 10/16/2025 3:40 PM EDT Office Visit [facility] [address] [facility] [address] [place] [address] Kings Robles MD [address] [facility] [address] [place] [address] [facility] Start: 10-08-2025 Glaucoma screening Dilated Retinal Exam [facility] Start: 09-03-2025 Adult BMI Screening Adult BMI Screening [facility] Start: 09-03-2025 Tobacco Screening Tobacco Screening [facility] Start: 08-16-2025 Adult BMI Screening Adult BMI Screening [facility] Start: 08-16-2025 Tobacco Screening Tobacco Screening [facility] Start: 07-08-2025 End: 07-08-2025 Patient encounter procedure 07/08/2025 3:00 PM EST Office Visit Endocrinology [address] [place] [address] Gale Bassett, OUTREACH COORDINATOR.BANKING MANAGEMENT CONSULTING MANAGER [address] [place] [address] 6 mo follow up Endocrinology Comment on above: 6 mo follow up Start: 07-07-2025 Hemoglobin A1c measurement HbA1C [facility] Start: 06-29-2025 Adult BMI Screening Adult BMI Screening [facility] Start: 06-29-2025 Tobacco Screening Tobacco Screening [facility] Start: 05-11-2025 Hepatitis B screening Urine Albumin:Creatinine Ratio [facility] Start: 05-11-2025 Urine screening for protein Diabetes: Urine Protein Screening [facility] Start: 05-09-2025 End: 05-09-2025 Patient encounter procedure JOELLEN Quiroz [facility] Start: 04-06-2025 Hemoglobin A1c measurement Diabetes: Hemoglobin A1C [facility] Start: 03-28-2025 End: 03-28-2025 Follow-up encounter 03/28/2025 2:00 PM EDT [facility] Gastroenterology [address] [address] [place], [place] [address] [address] follow up gastroparesis/weight check Gastroenterology Comment on above: follow up gastroparesis/weight check Start: 03-26-2025 End: 03-26-2025 Patient encounter procedure 03/26/2025 1:45 PM EDT OT/PT/Speech [facility] [facility] [address] [place] [address] Hosp, Speech [facility] [place] [address] [place] [address] [facility] Comment on above: swallow eval Start: 03-14-2025 End: 03-14-2025 Patient encounter procedure 03/14/2025 8:45 AM EDT [facility] [address] [place] [address] Lavonne Thomas, OIL TANKER CAPTAIN 5319 [facility] [address] [id number] JOELLEN Quiroz Neurology Start: 03-06-2025 End: 03-06-2025 Patient encounter procedure 03/06/2025 1:30 PM EDT Office Visit [facility] [address] [facility] [address] [place] [address] Kings Robles MD [facility]03 [facility] [address] [place] [address] [facility] Start: 02-26-2025 End: 02-26-2025 Patient encounter procedure [facility] Comment on above: New gp consult Start: 02-25-2025 COVID-19 Vaccine ( season) COVID-19 Vaccine ( season) [facility] Start: 02-25-2025 Influenza vaccination [facility] Start: 02-19-2025 End: 02-19-2025 Patient encounter procedure 02/19/2025 12:45 PM EDT [facility] Gastroenterology [address] [address] Edenilson Schmitz, RD [address] [address] New gp consult Gastroenterology Comment on above: New gp consult Start: 02-19-2025 End: 02-19-2025 Admission to same day surgery center 02/19/2025 11:00 AM EDT [facility] General Surgery [address] [facility] [address] [place] [address] Josey White, DO [facility] [address] New gp consult General Surgery Comment on above: New gp consult Start: 02-15-2025 End: 02-15-2025 Patient encounter procedure [facility] Radiology Gastrointestinal Comment on above: swallow eval Start: 02-15-2025 End: 02-15-2025 Telemedicine consultation with patient [facility] 210 Comment on above: Chronic migraine without aura without st atus migrainosus, not intractable Start: 02-06-2025 End: 02-06-2025 Patient encounter procedure 02/06/2025 3:00 PM EDT Office Visit [facility] [address] [facility] [address] [place] [address] Sierra Anna, OIL TANKER CAPTAIN 5319 Cash Bautista, [facility] [address] [place] [phone] [facility] Start: 01-23-2025 End: 01-23-2027 US Heart Transthoracic Transthoracic Echo Complete Echocardiography Routine Supraventricular tachycardia, unspecified Shortness of breath Palpitations Expected: 01/23/2025 (Approximate), Expires: 01/23/2027 [facility] Service Area Work Phone: Comment on above: Expected: 01/23/2025 (Approximate), Expi res: 01/23/2027 Start: 01-17-2025 End: 01-17-2025 Patient encounter procedure 01/17/2025 3:15 PM EDT Office Visit [facility] [address] [address] [place], [place] [id number] Jace Salas, OD [address] [facility] [place] [address] Diagnostics, Eye Tech And [address] [address] Vision changes [H53.9] Ophthalmology Comment on above: Vision changes [H53.9] Start: 01-11-2025 End: 01-11-2025 Patient encounter procedure 01/11/2025 11:15 AM EDT OT/PT/Speech Visit [facility] Speech Therapy [address] [place] [address] Kassy Pang, [facility]-CHIEF LOCK TENDER OPERATOR [address] [place] [address] consult [facility] Speech Therapy Comment on above: consult Start: 01-03-2025 End: 01-03-2025 Telemedicine consultation with patient 01/03/2025 4:00 PM EDT Telemedicine [facility] [address] RIB[address]O [address] [place] [address], [place] [phone] Lavonne Thomas, OIL TANKER CAPTAIN [address] [place] [address], [place] [address] Arrived [facility] 210 Comment on above: Arrived Start: 12-27-2024 Adult BMI Screening Adult BMI Screening [facility] Start: 12-27-2024 Tobacco Screening Tobacco Screening [facility] Start: 12-24-2024 End: 12-24-2024 Patient encounter procedure 12/24/2024 2:45 PM EDT Office Visit [facility] [address] [place] [address] JESENIA R[address]O [address] [place] [phone] Debbie Mckeon MD [facility] [place] [address] [facility] Start: 12-10-2024 End: 12-10-2024 Patient encounter procedure 12/10/2024 4:15 PM EDT Office Visit [facility] Heather [address] [place] [phone] Debbie Mckeon MD [address] [place] [address] [facility] Start: 12-08-2024 Urine screening for protein Diabetes: Urine Protein Screening [facility] Start: 12-06-2024 End: 12-06-2024 Patient encounter procedure [facility] Comment on above: Arrived Start: 11-28-2024 Adult BMI Screening Adult [facility] Screening [facility] Start: 11-24-2024 Depression Screening [facility]ening [facility] Start: 11-24-2024 Tobacco Screening Tobacco Screening [facility] Start: 11-14-2024 Adult BMI Screening Adult BMI Screening [facility] Start: 11-14-2024 Tobacco Screening Tobacco Screening [facility] Start: 10-16-2024 Adult BMI Screening Adult BMI Screening [facility] Start: 10-16-2024 Tobacco Screening Tobacco Screening [facility] Start: 10-15-2024 [facility] Start: 10-15-2024 Hemoglobin A1c measurement HbA1C [facility] Start: 10-09-2024 Adult BMI Screening Adult BMI Screening [facility] Start: 10-09-2024 Tobacco Screening Tobacco Screening [facility] Start: 09-25-2024 End: 09-25-2024 Patient encounter procedure 09/25/2024 10:20 AM EDT Office Visit [facility] [address] [place] [address] Ainsley Graham MD [address] [place] [address] [facility] Start: 09-22-2024 Tobacco Screening Tobacco Screening [facility] Start: 09-19-2024 Adult BMI Screening Adult BMI Screening [facility] Start: 09-19-2024 Tobacco Screening Tobacco Screening [facility] Start: 09-18-2024 Adult BMI Screening Adult BMI Screening [facility] Start: 09-18-2024 Tobacco Screening Tobacco Screening [facility] Start: 09-12-2024 Adult BMI Screening Adult BMI Screening [facility] Start: 09-12-2024 Tobacco Screening Tobacco Screening [facility] Start: 09-06-2024 Adult BMI Screening Adult [facility]ening [facility] Start: 09-06-2024 End: 09-06-2024 Patient encounter procedure [facility] Comment on above: Arrived Start: 09-06-2024 Subsequent hospital visit by physician 09/06/2024 11:04 AM EDT Hospital Encounter [facility] [address] [place] [address] Right kidney stone [facility] Comment on above: Right kidney stone Start: 08-25-2024 Depression Screening Depression Screening [facility] Start: 08-25-2024 Tobacco Screening Tobacco [facility]ening [facility] Start: 08-23-2024 End: 08-23-2024 Patient encounter procedure 08/23/2024 10:00 AM EST Office Visit [facility] [address] [place] [address] Ainsley Grahma MD [address] [place], [place] [phone] [facility] Start: 08-21-2024 End: 08-21-2024 Patient encounter procedure 08/21/2024 2:30 PM EST Office Visit [facility] [address] [place] [address] Nahun Gongora, OD [address] [place] [address] Diabetic eye screening Ophthalmology Comment on above: Diabetic eye screening Start: 08-20-2024 End: 08-20-2024 Patient encounter procedure 08/20/2024 2:20 PM EST Office Visit [facility] [address] [place] [address] Caleb Easton MD [address] Castell[address] [address] [facility] Start: 07-28-2024 Adult BMI Screening Adult BMI Screening [facility] Start: 07-28-2024 Tobacco Screening Tobacco Screening [facility] Start: 07-27-2024 End: 07-27-2024 Patient encounter procedure 07/27/2024 8:30 AM EST Office Visit [facility] [address] [place] [address] Nahun Gongora, OD [address] [place] [address] Mild protein-calorie malnutrition (HCC) [E44.1]; Vision changes [H53.9] Ophthalmology Comment on above: Mild protein-calorie malnutrition (HCC) [E44.1]; Vision changes [H53.9] Start: 07-26-2024 End: 07-26-2024 Patient encounter procedure [facility] Comment on above: [facility] Start: 07-19-2024 End: 07-19-2024 ambulatory 07/19/2024 9:00 AM EST Education Endocrinology [address] [place] [address] [place] [address] [place] [address] endo dietitian Endocrinology Comment on above: endo dietitian Start: 07-17-2024 Hemoglobin A1c measurement Diabetes: Hemoglobin A1C [facility] Start: 07-16-2024 End: 07-16-2024 Patient encounter procedure 07/16/2024 11:00 AM EST Office Visit [facility] [address] [place] [address] Nahun Gongora, OD [address] [place] [address] Mild protein-calorie malnutrition (HCC) [E44.1]; Vision changes [H53.9] Ophthalmology Comment on above: Mild protein-calorie malnutrition (HCC) [E44.1]; Vision changes [H53.9] Start: 07-08-2024 End: 07-08-2025 Home EEG w/Video 12-26hrs Home EEG w/Video 12-26hrs Neurology Routine Seizure disorder (CMS/HCC) Expected: 07/08/2024 (Approximate), Expires: 07/08/2025 [facility] Work Phone: Comment on above: Expected: 07/08/2024 (Approximate), Expi res: 07/08/2025 Start: 07-07-2024 Tobacco Screening Tobacco Screening [facility] Start: 07-04-2024 End: 07-04-2024 Patient encounter procedure 07/04/2024 10:00 AM EST Appointment [facility] - Ultrasound [address] [place] [phone] [facility] Start: 07-03-2024 End: 07-03-2024 Patient encounter procedure 07/03/2024 10:15 AM EST Office Visit [facility] [address] [place] [address] Ainsley Graham MD [address] [place] [address] [facility] Start: 06-29-2024 End: 06-29-2025 US Retroperitoneum Ultrasound retroperitoneal complete Imaging STAT Right kidney stone Expected: 06/29/2024, Expires: 06/29/2025 [facility] Work Phone: Comment on above: Expected: 06/29/2024, Expires: Start: 06-18-2024 End: 06-18-2024 Patient encounter procedure 06/18/2024 10:00 AM EST Office Visit Endocrinology [address] [place] [address] Gale Bassett, OUTREACH COORDINATOR.BANKING MANAGEMENT CONSULTING MANAGER [address] [place], [place] [phone] F/U 2 months DM Endocrinology Comment on above: F/U 2 months DM Start: 05-21-2024 End: 05-21-2024 Patient encounter procedure 05/21/2024 1:20 PM EST Office Visit [facility] [address] [place] [address] Caleb Easton MD [address] [facility] [address] [place] [address] [facility] Start: 04-18-2024 End: 04-18-2024 Patient encounter procedure 04/18/2024 9:30 AM EDT Office Visit [facility] [address] [place] [address] [facility] [place] [phone] Debbie Mckeon MD [address] [place] [address] Enriqueta Tse PA [address] [place] [address] [facility] Start: 04-17-2024 End: 07-17-2024 25-hydroxyvitamin D3 [Mass/volume] in Serum or Plasma VITAMIN D 25 HYDROXY Lab Routine Other specified diabetes mellitus with other specified complication, without long-term current use of insulin (HCC) Expected: 04/17/2024, Expires: 07/17/2024 [facility] Comment on above: Expected: 04/17/2024, Expires: Start: 04-17-2024 End: 07-17-2024 Parathyrin.intact [Mass/volume] in Serum or Plasma PTH INTACT Lab Routine Other specified diabetes mellitus with other specified complication, without long-term current use of insulin (HCC) Low TSH level Expected: 04/17/2024, Expires: 07/17/2024 [facility] Comment on above: Expected: 04/17/2024, Expires: Start: 04-17-2024 End: 07-17-2024 Renal function 2000 panel - Serum or Plasma RENAL FUNCTION PANEL Lab Routine Other specified diabetes mellitus with other specified complication, without long-term current use of insulin (HCC) Expected: 04/17/2024, Expires: 07/17/2024 [facility] Comment on above: Expected: 04/17/2024, Expires: Start: 04-16-2024 End: 07-16-2024 C peptide [Mass/volume] in Serum or Plasma C-PEPTIDE BLD Lab Routine Other specified diabetes mellitus with other specified complication, without long-term current use of insulin (HCC) Expected: 04/16/2024, Expires: 07/16/2024 [facility] Comment on above: Expected: 04/16/2024, Expires: Start: 04-16-2024 End: 07-16-2024 Cobalamin (Vitamin B12) [Mass/volume] in Serum or Plasma VITAMIN B12 Lab Routine Other specified diabetes mellitus with other specified complication, without long-term current use of insulin (HCC) Mild protein-calorie malnutrition (HCC) Low weight Expected: 04/16/2024, Expires: 07/16/2024 [facility] Comment on above: Expected: 04/16/2024, Expires: Start: 04-16-2024 End: 07-16-2024 Fasting glucose [Mass/volume] in Serum or Plasma GLUCOSE, FASTING Lab Routine Other specified diabetes mellitus with other specified complication, without long-term current use of insulin (HCC) Expected: 04/16/2024, Expires: 07/16/2024 [facility] Comment on above: Expected: 04/16/2024, Expires: Start: 04-16-2024 End: 07-16-2024 Glutamate decarboxylase 65 Ab [Units/volume] in Serum GLUTAMIC AC DECARBOXYLASE AB Lab Routine Other specified diabetes mellitus with other specified complication, without long-term current use of insulin (HCC) Expected: 04/16/2024, Expires: 07/16/2024 [facility] Comment on above: Expected: 04/16/2024, Expires: Start: 04-16-2024 End: 07-16-2024 Insulin [Units/volume] in Serum or Plasma INSULIN ASSAY BLOOD Lab Routine Other specified diabetes mellitus with other specified complication, without long-term current use of insulin (HCC) Expected: 04/16/2024, Expires: 07/16/2024 [facility] Comment on above: Expected: 04/16/2024, Expires: Start: 04-16-2024 End: 07-16-2024 Microalbumin/Creatinine [Mass Ratio] in Urine ALBUMIN/CREATININE RATIO, URINE Lab Routine Other specified diabetes mellitus with other specified complication, without long-term current use of insulin (HCC) Expected: 04/16/2024, Expires: 07/16/2024 [facility] Comment on above: Expected: 04/16/2024, Expires: Start: 04-16-2024 End: 07-16-2024 Thyrotropin [Units/volume] in Serum or Plasma THYROID STIMULATING HORMONE Lab Routine Other specified diabetes mellitus with other specified complication, without long-term current use of insulin (HCC) Low TSH level Low weight Expected: 04/16/2024, Expires: 07/16/2024 [facility] Comment on above: Expected: 04/16/2024, Expires: Start: 04-02-2024 Patient referral [facility] Work Phone: Start: 02-26-2024 Covid-19 Vaccine ( season) Covid-19 Vaccine ( season) [facility] Start: 02-26-2024 Influenza vaccination [facility] Start: 02-16-2024 End: 02-16-2024 Patient encounter procedure 02/16/2024 10:40 AM EDT Office Visit [facility] [address] [facility] [address] [place] [address] Caleb Easton MD [address] [facility] [address] [place] [id number] Arrived [facility] Comment on above: Arrived Start: 01-26-2024 Influenza vaccination Flu vaccine (Season Ended) [facility] [employer] [facility] Start: 01-21-2024 Adult BMI Screening Adult BMI Screening [facility] Start: 12-28-2023 End: 12-27-2024 MR Lumbar spine WO contrast MR lumbar spine without contrast Imaging Routine Chronic bilateral low back pain without sciatica Chronic bilateral low back pain with bilateral sciatica Expected: 12/28/2023, Expires: 12/27/2024 [facility] Work Phone: Comment on above: Expected: 12/28/2023, Expires: Start: 12-28-2023 End: 12-28-2023 Patient encounter procedure 12/28/2023 9:30 AM EDT Office Visit [facility] [address] [place] [address] Jaja Rice, OUTREACH COORDINATOR-BANKING MANAGEMENT CONSULTING MANAGER [address] [place] [address] [facility] Start: 11-25-2023 Pneumococcal vaccination Pneumococcal Vaccine (2 of 2 - PCV) [facility] Start: 11-15-2023 End: 11-15-2023 Patient encounter procedure 11/15/2023 12:30 PM EDT Office Visit [facility] [address] [place] [address] Jaja Rice, OUTREACH COORDINATOR-BANKING MANAGEMENT CONSULTING MANAGER [address] [place] [address] [facility] Start: 11-15-2023 End: 11-15-2023 Patient encounter procedure 11/15/2023 11:15 AM EDT Office Visit [facility] [address] [place] [address] Debbie Mckeon MD [address] [place] [address] [facility] Start: 10-17-2023 End: 10-17-2023 Admission to same day surgery center 10/17/2023 7:30 AM EDT - 10/17/2023 8:45 AM EDT Surgery [facility] - Surgery [address] [place] [address]. [place] [address] Debbie Mckeon MD [address] [place] [address] CYSTOSCOPY RETROGRADE PYELOGRAM [76702 (CPT )] [facility] Comment on above: CYSTOSCOPY RETROGRADE PYELOGRAM [19958 ( CPT )] Start: 10-17-2023 End: 10-17-2023 Cysto bladder w/ureteral catheterization CYSTOSCOPY RETROGRADE PYELOGRAM Gross hematuria 10/17/2023 7:30 AM EDT [facility] Start: 10-17-2023 Subsequent hospital visit by physician 10/17/2023 7:30 AM EDT Hospital Encounter [facility] [address] [place] [phone] Debbie Mckeon MD [address] [place] [address] [facility] Start: 10-04-2023 End: 10-04-2023 Patient encounter procedure 10/04/2023 10:30 AM EDT Office Visit [facility] [address] [place] [address] Nette Lackey MD [address] [place] [address] [facility] Start: 09-23-2023 Subsequent hospital visit by physician 09/23/2023 1:00 PM EDT Hospital Encounter [facility] - Ultrasound [address] [facility] [place] [address] Nette Lackey MD [address] [place] [address] [facility] - Ultrasound Start: 09-22-2023 End: 09-22-2023 Patient encounter procedure 09/22/2023 11:00 AM EDT Office Visit [facility] [address] [place] [address] Lavonne Thomas, OIL TANKER CAPTAIN [address] [place] [address] [facility] Start: 09-20-2023 End: 09-20-2023 Patient encounter procedure [facility] Start: 09-19-2023 End: 09-19-2023 Patient encounter procedure 09/19/2023 3:15 PM EDT Procedure visit [facility] [address] [facility] [place] [address] Nette Lackey MD [address] [place], [place] [id number] [facility] Start: 09-13-2023 End: 09-12-2024 [...] Office Visit [facility] [address] [place] [address] [facility] [place] [address] Enriqueta Tse I, PA [address] [place] [address] [facility] Start: 08-10-2023 End: 08-10-2023 Patient encounter procedure 08/10/2023 10:15 AM EST Office Visit [facility] [address] [place] [address] [place] [address] Enriqueta Tse I, DAWSON [address] [place] [address] [facility] Start: 07-07-2023 End: 07-06-2024 US Retroperitoneum Ultrasound retroperitoneal complete Imaging Routine Right kidney stone Expected: 07/07/2023, Expires: 07/06/2024 [facility] [employer] [facility] Comment on above: Expected: 07/07/2023, Expires: Start: 07-07-2023 End: 07-06-2024 XR Abdomen AP [facility] Work Phone: Comment on above: Expected: 07/07/2023, Expires: Start: 03-23-2023 Lamotrigine measurement [facility] Start: 03-23-2023 Measurement of substance [facility] Start: 02-25-2023 Influenza vaccination Influenza Vaccine [facility] [facility]stem Start: 01-25-2023 Influenza vaccination Flu vaccine (#1) [facility] Start: 09-13-2022 Lamotrigine measurement [facility] Start: 09-13-2022 Measurement of substance [facility] Start: 08-18-2022 Measurement of substance [facility] Start: 2022 Screening for malignant neoplasm of cervix [facility] Start: 02-25-2022 Influenza vaccination INFLUENZA (#1) [facility] Start: 06-27-2021 DEPRESSION ASSESSMENT DEPRESSION ASSESSMENT [facility] Start: 2020 DTaP,Tdap and Td Vaccines (1 - Tdap) DTaP,Tdap and Td Vaccines (1 - Tdap) [facility] Start: 2020 DTaP/Tdap/Td vaccine (1 - Tdap) DTaP/Tdap/Td vaccine (1 - Tdap) [facility] Start: 2020 Hepatitis B Vaccine (1 of 3 - 19+ 3-dose series) Hepatitis B Vaccine (1 of 3 - 19+ 3-dose series) [facility] Start: 2020 Hepatitis B Vaccines (1 of 3 - 19+ 3-dose series) Hepatitis B Vaccines (1 of 3 - 19+ 3-dose series) [facility] Start: 2020 Urine microalbumin profile DTAP,TDAP,TD (1 - Tdap) [facility] Start: 03-29-2020 Hepatitis B surface antibody level LDL Cholesterol [facility] Start: 2019 Adult BMI Follow Up Plan Adult BMI Follow Up Plan [facility] Start: 2019 Annual PCP Team Chronic Disease Visit Annual PCP Team Chronic Disease Visit [facility] Start: 2019 CHLAMYDIA SCREENING () CHLAMYDIA SCREENING () [facility] Start: 2019 Depression Screening Depression Screening [facility] Start: 2019 Diabetes mellitus screening Diabetes Screening [facility] Start: 2019 GC (GONORRHEA) SCREENING () GC (GONORRHEA) SCREENING () [facility] Start: 2019 HEPATITIS C SCREENING HEPATITIS C SCREENING [facility] Start: 2019 Hepatitis C screening [facility] Start: 2019 HIV SCREENING HIV SCREENING [facility] Start: 2019 HIV screening HIV Screening [facility] Start: 2019 Screening for Chlamydia trachomatis Chlamydia Screening () [facility] Start: 2017 Meningococcal B Vaccine (1 of 2 - Standard) Meningococcal B Vaccine (1 of 2 - Standard) [facility] Start: 2017 Meningococcal B Vaccine: Consider Based On Risk (1 of 2 - Patient Seeks Protection) Meningococcal B Vaccine: Consider Based On Risk (1 of 2 - Patient Seeks Protection) [facility] Start: 2017 Screening for Chlamydia trachomatis Chlamydia/[facility] Start: 2016 HIV screening HIV screen [facility] Start: 2016 HPV Vaccine (1 - 3-dose series) HPV Vaccine (1 - 3-dose series) [facility] Start: 2016 HPV Vaccines (1 - 3-dose series) HPV Vaccines (1 - 3-dose series) [facility] Start: 2015 PEDS TO ADULT TRANSITION ANNUAL ASSESSMENT PEDS TO ADULT TRANSITION ANNUAL ASSESSMENT [facility] Start: 2013 Depression Screen Depression Screen [facility] Start: 2013 Depression Screening [facility] Start: 2013 PEDS TO ADULT TRANSITION INITIAL DISCUSSION PEDS TO ADULT TRANSITION INITIAL DISCUSSION [facility] Start: 2012 HPV VACCINE (1 - 2-dose series) HPV VACCINE (1 - 2-dose series) [facility] Start: 2011 Diabetic foot examination Diabetic Foot Exam [facility] Start: 2011 Glaucoma screening [facility] Start: 2011 MENINGOCOCCAL B: Consider based on risk (1 of 2 - Risk Bexsero 2-dose series) MENINGOCOCCAL B: Consider based on risk (1 of 2 - Risk Bexsero 2-dose series) [facility] Start: 2002 MMR Vaccines (1 of 1 - Standard series) MMR Vaccines (1 of 1 - Standard series) [facility] Start: 2002 Varicella vaccine (1 of 2 - 2-dose childhood series) Varicella vaccine (1 of 2 - 2-dose childhood series) [facility] Start: 2001 COVID-19 VACCINE (#1) COVID-19 VACCINE (#1) [facility] Start: 2001 Hemoglobin A1c measurement Diabetes: Hemoglobin A1C [facility] Start: 2001 HEPATITIS B (1 of 3 - 3-dose series) HEPATITIS B (1 of 3 - 3-dose series) [facility] Start: 2001 Hepatitis B vaccine (1 of 3 - 3-dose series) Hepatitis B vaccine (1 of 3 - 3-dose series) [facility] Start: 2001 HIV screening HIV Screening [facility] Start: 2001 Lipid panel Lipid Panel [facility] Start: 2001 Screening for Chlamydia trachomatis Chlamydia Screening [facility] [employer] [facility] Start: 2001 Yearly Adult Physical Yearly Adult [facility] End: 02-19-2026 ADULT [place] [employer] ADULT [place] [employer] Endoscopy Routine Chronic idiopathic constipation Dyssynergic defecation 1 Occurrences starting 02/19/2025 until 02/19/2026 [facility] Work Phone: Comment on above: 1 Occurrences starting 02/19/2025 until 02/19/2026 Bacteria identified in Urine by Culture [facility] End: 07-17-2025 Bacteria identified in Urine by Culture Urine culture Microbiology Routine Hematuria, unspecified type 1 Occurrences starting 07/17/2024 until 07/17/2025 [employer] Work Phone: Comment on above: 1 Occurrences starting 07/17/2024 until 07/17/2025 End: 08-08-2025 Bacteria identified in Urine by Culture Urine culture Microbiology Routine Dysuria 1 Occurrences starting 08/08/2024 until 08/08/2025 [employer] Work Phone: Comment on above: 1 Occurrences starting 08/08/2024 until 08/08/2025 End: 09-06-2024 Cytology Cytology Pathology and Cytology Routine Gross hematuria 1 Occurrences starting 09/07/2023 until 09/06/2024 [employer] Comment on above: 1 Occurrences starting 09/07/2023 until 09/06/2024 Hemoglobin A1c/Hemoglobin.total in Blood HEMOGLOBIN A1C (POC) Lab Routine Other specified diabetes mellitus with other specified complication, without long-term current use of insulin (HCC) Ordered: 04/16/2024 [facility] Work Phone: Comment on above: Ordered: 04/16/2024 Patient Education [facility] Work Phone: Patient referral [facility] Work Phone: End: 12-01-2023 Urinalysis Urinalysis Lab STAT One Time for 1 Occurrences starting 12/01/2023 until 12/01/2023 [facility] Comment on above: One Time for 1 Occurrences starting 11/2023 until 12/01/2023 End: 07-07-2024 Urinalysis Urinalysis Lab Routine Right kidney stone PRN for 1 Occurrences starting 07/07/2023 until 07/07/2024 [facility] Comment on above: PRN for 1 Occurrences starting until 07/07/2024 End: 09-06-2024 Urovysion for bladder Urovysion for bladder Lab Routine Gross hematuria 1 Occurrences starting 09/07/2023 until 09/06/2024 [employer] Work Phone: Comment on above: 1 Occurrences starting 09/07/2023 until 09/06/2024 Immunizations Immunization Date Immunization Notes Care Provider [facility] 08-23-2023 tetanus toxoid, reduced diphtheria toxoid, and acellular pertussis vaccine, adsorbed Lavonne Thomas NP Work Phone: [facility] 11-24-2022 pneumococcal polysaccharide vaccine, 23 valent Caleb Easton MD Work Phone: [facility] NEGATED: Highlighted row has not occurred!07-17-2017 influenza, injectable, quadrivalent, preservative free Stefanie Ortez MD [facility] Payers Date Payer Category Payer Self-pay [id number] 2021 Medicaid (Managed Care) 1.2. [id number] 2018 [place] [id number] 2016 Medicaid [id number] 2003 Medicaid [id number]. [id number] 2001 Unknown [id number] 2.16.840.1.037091.3.579.2. 176 2001 Unknown [id number] 2.16.840.1.812867.3.579.2. 594 2001 Unknown [id number] 2.16.840.1.027908.3.579.2. 593 2001 Unknown [id number] 2.16.840.1.676870.3.579.2. 593 2001 Unknown [id number] 2.16.840.1.933877.3.579.2. 593 2001 Unknown [id number] 2.16.840.1.852173.3.579.2. 593 2001 Unknown [id number] 2.16.840.1.585883.3.579.2. 593 2001 Unknown [id number] 2.16.840.1.316608.3.579.2. 593 2001 Unknown [id number] 2.16.840.1.933620.3.579.2. 593 2001 Unknown [id number] 2.16.840.1.759150.3.579.2. 173 2001 Unknown [id number] 2.16.840.1.232306.3.579.2. 177 2001 Unknown [id number] 2.16.840.1.534280.3.579.2. 177 2001 Unknown [id number] 2.16.840.1.229145.3.579.2. 177 2001 Unknown [id number] 2.16.840.1.624231.3.579.2. 177 2001 Unknown [id number] 2.16.840.1.739754.3.579.2. 177 2001 Unknown [id number] 2.16.840.1.006720.3.579.2. 1285 2001 Unknown [id number] 2.16.840.1.286373.3.579.2. 1285 2001 Unknown [id number] 2.16.840.1.133171.3.579.2. 1285 2001 Unknown [id number] 2.16.840.1.667989.3.579.2. 1285 2001 Unknown [id number] 2.16.840.1.805367.3.579.2. 1285 2001 Unknown [id number] 2.16.840.1.805187.3.579.2. 1285 2001 Unknown [id number] 2.16.840.1.166123.3.579.2. 1285 2001 Unknown [id number] 2.16.840.1.510800.3.579.2. 1285 2001 Unknown [id number] 2.16.840.1.038715.3.579.2. 1285 2001 Unknown [id number] 2.16.840.1.760101.3.579.2. 1285 2001 Unknown [id number] 2.16.840.1.735067.3.579.2. 1285 2001 Unknown [id number] 2.16.840.1.809485.3.579.2. 1285 2001 Unknown [id number] 2.16.840.1.906610.3.579.2. 1285 2001 Unknown [id number] 2.16.840.1.422590.3.579.2. 1285 2001 Unknown [id number] 2.16.840.1.332505.3.579.2. 1285 2001 Unknown [id number] 2.16.840.1.004080.3.579.2. 1285 2001 Unknown [id number] 2.16.840.1.739787.3.579.2. 1285 2001 Unknown [id number] 2.16.840.1.534651.3.579.2. 1285 2001 Unknown [id number] 2.16.840.1.964665.3.579.2. [facility]2001 Unknown [id number] 2.16.840.1.163891.3.579.2. [facility]2001 Unknown [id number] 2.16.840.1.211729.3.579.2. [facility]2001 Unknown [id number] 2.16.840.1.348376.3.579.2. 1285 2001 Unknown [id number] 2.16.840.1.835263.3.579.2. 1285 2001 Unknown [id number] 2.16.840.1.976798.3.579.2. [facility] Unknown [id number] 2.16.840.1.661280.3.579.2. 1285 2001 Unknown [id number] 2.16.840.1.643312.3.579.2. 1285 2001 Unknown [id number] 2.16.840.1.765743.3.579.2. 1285 2001 Unknown [id number] 2.16.840.1.195778.3.579.2. 1285 2001 Unknown [id number] 2.16.840.1.250560.3.579.2. 1285 2001 Unknown [id number] 2.16.840.1.604203.3.579.2. 1285 2001 Unknown [id number] 2.16.840.1.630279.3.579.2. 1285 2001 Unknown [id number] 2.16.840.1.659650.3.579.2. [facility] 2001 Unknown [id number] 2.16.840.1.956158.3.579.2. 718 2001 Unknown [id number] 2.16.840.1.586067.3.579.2. 718 2001 Unknown [id number] 2.16.840.1.431735.3.579.2. 1244 2001 Unknown [id number] 2.16.840.1.451446.3.579.2. 1244 1977 Unknown [id number] 2.16.840.1.866930.3.579.2. 647 1959 Unknown [id number] Unknown [id number] 2.16.840.1.885422.3.579.2. 531 Unknown [id number] 2.16.840.1.469313.3.579.2. 531 Unknown [id number] 2.16.840.1.285271.3.579.2. 531 Social History Date Type Detail Facility Start: 09-28-2021 Tobacco smoking stat us NCIS Current some day smoker [facility] Start: 2001 Sex Assigned At Female F [facility] Start: 02-25-2022 End: 01-23-2025 Tobacco smoking status NCIS Never smoked tobacco (finding) [facility] Start: 03-29-2019 End: 01-23-2025 Tobacco use and exposure Smokeless tobacco non-user [facility] Start: 12-10-2020 End: 10-08-2024 Alcohol intake Ex-drinker (finding) [facility] Start: 03-23-2021 Alcohol intake Current non-dr bicycle [facility] ([facility] Start: 2001 Sex Assigned At Not on file [facility] [employer] Start: 08-10-2023 End: 03-06-2025 Alcohol intake Lifetime non-drinker (finding) [facility] Start: 08-10-2023 End: 03-06-2025 History of Social function [employer] Start: 08-10-2023 End: 03-06-2025 Tobacco use panel [employer] Start: 06-13-2018 End: 05-22-[address] [facility] [employer] [facility] Start: 04-02-2024 Tobacco smoking stat us NHIS Smoker (finding) [facility] Start: 09-04-2018 Gender identity [id number]-[id number] transsexual (finding) [facility] Start: 09-04-2018 Sexual orientation Homosexual (findi ng) [facility] Has the BAC ON TRAC, Cost Effective Data, or [employer] threatened to shut off services in your home in past 12Mo No [employer] How often to you hav e a drink containing alcohol? Monthly or less [facility] How many standard drinks containing alcohol do you have on a typical day? 1 or 2 [facility] How often do you hav e 6 or more drinks on 1 occasion? Never [employer] Start: 03-12-2020 End: 11-02-2024 Sex Female (finding) [employer] Start: 10-12-2020 Gender identity Identifies as male gender (finding) [employer] Medical Equipment Procedure Code Equipment Code Equipment Original Text Equipment Identifier Dates [id number], [id number], [id number] Start: 07-03-2020 Comment on above: For use [...] 12/05/2020 6:49 PM Herbie Orellana, NATHANIEL No [facility] 12-05-2020 Are you blind, or do you have serious difficulty seeing, even when wearing glasses No 12/05/2020 6:49 PM Herbie Orellana RN No [facility] 12-05-2020 Do you have serious difficulty walking or climbing stairs No 12/05/2020 6:49 PM EDT Herbie Anders, NATHANIEL No [facility] 12-05-2020 Do you have difficul ty dressing or bathing No 12/05/2020 6:49 PM EDT Herbie Anders, NATHANIEL No [facility] 12-05-2020 Because of a physica l, mental, or emotional condition, do you have difficulty doing errands alone such as visiting a physician's office or shopping No 12/05/2020 6:49 PM EDT Herbie Anders, NATHANIEL No [facility] Mental Status Date Assessment Result Facility 12-05-2020 Because of a physica l, mental, or emotional condition, do you have serious difficulty concentrating, remembering, or making decisions No 12/05/2020 6:49 PM EDT Herbie Anders, NATHANIEL No [facility] Clinical Notes 12-05-2019 to 03-06-2025 Kings Robles MD - 03/06/2025 1:30 PM EDTPatient InstructionsTelephone Encounter - Lavonne Thomas NP - 02/28/2025 12:35 PM Tammy Chanel PSYD - 02/26/2025 1:47 PM EDT Note Date & Type Note Facility 03-06-2025 History of Present illness Narrative Chief Complaint Patient presents with Follow-up 2 month follow up SVT Subjective Karis Kovacs is a 24 y.o. transgender male HPI Patient here for follow-up and management for history of SVT, palpitation. Since last time I saw him he was in the hospital briefly for a brief syncopal episode followed heavy exertion and playing [employer]. His evaluation in the [facility] noted and reviewed with him. His recent implantable loop recorder did showed a brief episode of tachycardia but no rhythm strips available. The patient report his symptoms overall is reasonably controlled. Unfortunately his insurance declined his echo. Assessment 1. Symptoms of palpitation and tachycardia. Patient carries diagnosis of SVT and has been treated with flecainide. Recent EP study failed to induce any tachyarrhythmia. Implantable loop recorder showed few episodes of brief SVT. I suspect likely to be atrial tachycardia 2. Symptoms of shortness of breath but described functional class I. Echo was denied by his insurance 3. Symptoms of orthostatic hypotension suspicious of POTS has been treated with midodrine 4. History of seizure 5. Family history of hypertrophic obstructive cardiomyopathy with several in the family his last echocardiogram was couple of years ago but again his insurance declined his echo 6. Borderline abnormal EKG Showing questionable right atrial enlargement and right axis deviation I suspect due to his thin stature Plan 1. I advised the patient to maintain high fluid intake 2. I recommended to repeat his loop recorder interrogation a few month 3. His symptoms seem to be reasonably controlled on current medical regimen we will continue that consideration to switch to diltiazem or Rythmol if continue to have episodes of breakthrough arrhythmia 4. I encouraged him to increase his fluid and salt intake 5. Follow-up after in 6-month or earlier if the need arise 6. I reviewed his recent ER record and the EKG which he provided through his portal on his phone Review of Systems Neurological: Positive for dizziness and light-headedness. All other systems reviewed and are negative. Vitals: 03/06/25 1323 03/06/25 1324 BP: 102/74 104/72 BP Location: Left arm Left arm Patient Position: Sitting Standing Pulse: 76 80 Weight: 47.2 kg (104 lb) Height: 1.549 m (5' 1 ) Objective Physical Exam Constitutional: Appearance: Normal appearance. HENT: Nose: Nose normal. Neck: Vascular: No carotid bruit. Cardiovascular: Rate and Rhythm: Normal rate. Pulses: Normal pulses. Heart sounds: Normal heart sounds. Pulmonary: Effort: Pulmonary effort is normal. Abdominal: General: Bowel sounds are normal. Palpations: Abdomen is soft. Musculoskeletal: General: Normal range of motion. Cervical back: Normal range of motion. Right lower leg: No edema. Left lower leg: No edema. Skin: General: Skin is warm and dry. Neurological: General: No focal deficit present. Mental Status: He is alert. Psychiatric: Mood and Affect: Mood normal. Behavior: Behavior normal. Thought Content: Thought content normal. Judgment: Judgment normal. Allergies Codeine and Topiramate Current Medications Current Outpatient Medications Medication Instructions albuterol 90 mcg/actuation inhaler 2 puffs, Every 4 hours PRN brivaracetam (BRIVIACT) 100 mg, 2 times daily cloBAZam (ONFI) 10 mg, Daily RT cyclobenzaprine (FLEXERIL) 5 mg, 3 times daily PRN dexmethylphenidate XR (FOCALIN XR) 10 mg, Daily flecainide (TAMBOCOR) 100 mg, 2 times daily fludrocortisone (FLORINEF) 0.1 mg, oral, Daily lamoTRIgine (LAMICTAL) 200 mg, 2 times daily metoprolol succinate XL (TOPROL-XL) 25 mg, Daily midodrine (PROAMATINE) 5 mg, 3 times daily nasal spray Nayzilam 5 mg/spray (0.1 mL) spray,non-aerosol 0.1 mg/kg, As needed pantoprazole (PROTONIX) 40 mg, Daily promethazine (PHENERGAN) 25 mg, Every 6 hours PRN zonisamide (ZONEGRAN) 50 mg, Daily Assessment/Plan 1. Palpitations 2. Supraventricular tachycardia, unspecified Follow Up In Cardiology Follow Up In Cardiology Referral to Pacemaker Clinic and Follow Up 3. Implantable loop recorder present Referral to Pacemaker Clinic and Follow Up 4. Family history of hypertrophic cardiomyopathy 5. Shortness of breath 6. Dizziness and giddiness 7. Never smoked tobacco 8. Body mass index (BMI) of 19.0 to 19.9 in adult Scribe Attestation By signing my name below, IJazmine LPN, Scribe attest that this documentation has been prepared under the direction and in the presence of Kings Robles MD. Provider Attestation - Scribe documentation All medical record entries made by the Scribe were at my direction and personally dictated by me. I have reviewed the chart and agree that the record accurately reflects my personal performance of the history, physical exam, discussion and plan. documented in this encounter [facility] Work Phone: 03-06-2025 Instructions Jazmine Arreola LPN - 03/06/2025 1:30 PM EDT Please bring all medicines, vitamins, and herbal supplements with you when you come to the office. Prescriptions will not be filled unless you are compliant with your follow up appointments or have a follow up appointment scheduled as per instruction of your physician. Refills should be requested at the time of your visit. BMI was above normal measurement. Current weight: 47.2 kg (104 lb) Weight change since last visit (-) denotes wt loss 4.8 lbs Weight loss needed to achieve BMI 25: -28 Lbs Weight loss needed to achieve BMI 30: -54.4 Lbs Provided instructions on dietary changes. Increase Salt intake Follow up 6 month Loop recorder check 3 months documented in this encounter [facility] Work Phone: 02-28-2025 Telephone encounter Note OARRS reviewed. [facility] 02-28-2025 Miscellaneous Notes OARRS reviewed. documented in this encounter [facility] 02-26-2025 Note HNO ID: [id number] Author: TAMMY PALACIOS PSYD Service: ? Author Type: Psychologist Type: Progress Notes Filed: 02/26/2025 16:09 Note Text: INITIAL [facility] PSYCHOLOGICAL CONTACT Date of Encounter: February 26, 2025 Identifying Information Name: Karis Kovacs : 2000 Age: [age] year old Sex: adult Race or Ethic Origin: Due to the [facility] and [facility] and the need for ongoing mental health services, the following visit was completed virtually to reduce the risk of COVID-19 exposure. Consent related to virtual visits was provided verbally after information was sent via [employer] or read to patient if MyChart not available. I have communicated my name and active licensure. The patient's identity and physical location were verified at the time of this visit. Either the patient or their legal employee representative has been informed of the risks and benefits of -- and alternatives to -- treatment through a remote evaluation and consents to proceed with the evaluation remotely. Patient is in the state of [place] during our call PsyPACT: I am authorized to practice either (1) interjurisdictional telepsychology under Authority to Practice Interjurisdictional Telepsychology (APIT) or (2) temporary in-person, [id number] practice for up to 30 days a calendar year in each [facility] state under Temporary Authorization to Practice (TAP). IMPRESSIONS Yonatan Kovacs is a 24 year old adult with a history of gastroparesis who was referred to behavioral health by Dr. White for evaluation and treatment of lifestyle and behavioral factors that may be contributing to symptoms. Patient presents with history of severe constipation since October 2023 to where he will go anywhere from 1 week to 1 month in between bowel movements. When severely constipated, the patient experiences severe loss of appetite and postprandial nausea/vomiting/abdominal pain, associated with 10-15 lb weight loss during each symptom flare. Patient has a history of a seizure disorder and POTS (diagnosed by symptoms, not tilt table). He is a transgender male, not currently taking any hormones. He denies any difficulties associated with his menstrual cycle or with urination. He describes his overall mood as good right now and indicates his stress level is low; he has experienced more significant anxiety in the past that is now well managed, though he does endorse active symptoms of PTSD. Patient identified goals of get off a lot of these medications (cardiovascular medications, seizure medications), Be able to eat whatever I want, have a bowel movement. We discussed the main goals of GI behavioral medicine, which are to reduce visceral sensation, modify the brain's response to symptoms, and address food-related anxiety. We discussed the following plan: -Patient was prescribed buspar for anxiety--we discussed its impact on GI accommodation. Patient opting to trial buspar before meals to diminish postprandial symptoms. Discussed that mirtazapine is sometimes better tolerated in patients with POTS compared to buspar, but would defer to his prescribing provider. -Patient will schedule anorectal manometry and consult to GI for management of constipation -Patient not interested in gut directed hypnotherapy right now -Minimal symptom specific/generalized anxiety, patient does not require symptom anxiety group right now -Patient should continue to follow up with medical team for further recommendations Chief Complaint: Yonatan Kovacs is a 24 year old adult with a history of gastroparesis who was referred to behavioral health by Dr. White for evaluation and treatment of lifestyle and behavioral factors that may be contributing to symptoms. HPI: Patient reported in October 2023 he became paralyzed from the waist down. Started experiencing severe constipation where he could go up to a month without bowel movements even with significant intervention including enemas. He reported significant weight loss secondary to diminished oral intake to where he loses 10-15 lbs, as when he ate he would experience nausea/vomiting. His symptoms now remain about the same as they were in October 2023. He has had recurrent ER visits related to this but is still not able to evacuate bowels. History of seizures since . He takes numerous medications to manage. Previously diagnosed with POTS. Is prescribed florinef, metoprolol. GYNECOLOGIC SYMPTOMS []Dysmenorrhea (painful menstrual cycle)-denied []Menorrhagia (heavy menstrual bleeding)-denied []Dyspareunia (pain with sexual intercourse)-denied []Dysuria (pain with urination)-denied []Difficulty voiding urine-denied []History of frequent UTIs-denied Age at first menstrual cycle: 10 Last menstrual cycle was approximately 2 months ago He notes his sister may have endometr (more content not included)... [facility] 02-26-2025 History of Present illness Narrative Images from the original note were not included. INITIAL [facility] PSYCHOLOGICAL CONTACT Date of Encounter: February 26, 2025 Identifying Information Name: Karis Kovacs : 2000 Age: [age] year old Sex: adult Race or Ethic Origin: Due to the [facility] and [facility] and the need for ongoing mental health services, the following visit was completed virtually to reduce the risk of COVID-19 exposure. Consent related to virtual visits was provided verbally after information was sent via [employer] or read to patient if MyChart not available. I have communicated my name and active licensure. The patient's identity and physical location were verified at the time of this visit. Either the patient or their legal employee representative has been informed of the risks and benefits of -- and alternatives to -- treatment through a remote evaluation and consents to proceed with the evaluation remotely. Patient is in the state of [place] during our call PsyPACT: I am authorized to practice either (1) interjurisdictional telepsychology under Authority to Practice Interjurisdictional Telepsychology (APIT) or (2) temporary in-person, [id number] practice for up to 30 days a calendar year in each [facility] state under Temporary Authorization to Practice (TAP). IMPRESSIONS Yonatan Kovacs is a 24 year old adult with a history of gastroparesis who was referred to behavioral health by Dr. White for evaluation and treatment of lifestyle and behavioral factors that may be contributing to symptoms. Patient presents with history of severe constipation since October 2023 to where he will go anywhere from 1 week to 1 month in between bowel movements. When severely constipated, the patient experiences severe loss of appetite and postprandial nausea/vomiting/abdominal pain, associated with 10-15 lb weight loss during each symptom flare. Patient has a history of a seizure disorder and POTS (diagnosed by symptoms, not tilt table). He is a transgender male, not currently taking any hormones. He denies any difficulties associated with his menstrual cycle or with urination. He describes his overall mood as good right now and indicates his stress level is low; he has experienced more significant anxiety in the past that is now well managed, though he does endorse active symptoms of PTSD. Patient identified goals of get off a lot of these medications (cardiovascular medications, seizure medications), Be able to eat whatever I want, have a bowel movement. We discussed the main goals of GI behavioral medicine, which are to reduce visceral sensation, modify the brain's response to symptoms, and address food-related anxiety. We discussed the following plan: -Patient was prescribed buspar for anxiety--we discussed its impact on GI accommodation. Patient opting to trial buspar before meals to diminish postprandial symptoms. Discussed that mirtazapine is sometimes better tolerated in patients with POTS compared to buspar, but would defer to his prescribing provider. -Patient will schedule anorectal manometry and consult to GI for management of constipation -Patient not interested in gut directed hypnotherapy right now -Minimal symptom specific/generalized anxiety, patient does not require symptom anxiety group right now -Patient should continue to follow up with medical team for further recommendations Chief Complaint: Yonatan Kovacs is a 24 year old adult with a history of gastroparesis who was referred to behavioral health by Dr. White for evaluation and treatment of lifestyle and behavioral factors that may be contributing to symptoms. HPI: Patient reported in October 2023 he became paralyzed from the waist down. Started experiencing severe constipation where he could go up to a month without bowel movements even with significant intervention including enemas. He reported significant weight loss secondary to diminished oral intake to where he loses 10-15 lbs, as when he ate he would experience nausea/vomiting. His symptoms now remain about the same as they were in October 2023. He has had recurrent ER visits related to this but is still not able to evacuate bowels. History of seizures since . He takes numerous medications to manage. Previously diagnosed with POTS. Is prescribed florinef, metoprolol. GYNECOLOGIC SYMPTOMS []Dysmenorrhea (painful menstrual cycle)-denied []Menorrhagia (heavy menstrual bleeding)-denied []Dyspareunia (pain with sexual intercourse)-denied []Dysuria (pain with urination)-denied []Difficulty voiding urine-denied []History of frequent UTIs-denied Age at first menstrual cycle: 10 Last menstrual cycle was approximately 2 months ago He notes his sister may have endometriosis He is not prescribed any hormones right now as they were causing seizures. He discontinued in 2019. CENTRAL SENSITIZATION []Pain [x]Fatigue- extremely tired but looking at my heart to see what is going wrong with it [x]Sleep difficulties-hx of insomnia since , is prescribed medications without benefit. [x]Headaches-has trialed numerous medications without benefit. Scheduled for botox soon. [x]Depression IMPACT OF SYMPTOMS ON QUALITY OF LIFE Typical dietary pattern: Liquids are tolerated better than solids Eating meals/snacks at least two times per day Calories more concentrated during the evening hours. []Loss of appetite-denied []Loss of interest in eating-denied []Fear of eating-denied MENTAL HEALTH HISTORY Patient describes a history of anxiety. He describes these symptoms are manageable and is not prescribed any psychiatric medications. He has previously tried zoloft, ativan, xanax but is not currently using these. He sees a psychologist as needed, but is not actively engaged in psychotherapy Previously diagnosed with PTSD. No history of trauma focused therapy. PTSD symptoms are active right now. Risk/Lethality: Current Suicidality: none Current Homicidality:none HEALTH BEHAVIORS ETOH and Substance Use: The patient denies any alcohol consumption. The patient is a lifelong nonsmoker. The patient uses THC/CBD for seizures and this helps. Social History: Patient participates in [employer] 6 days a week over the last 5 months. Patient is not currently working or in school. He is working on getting his drivers license and then wants to do trade school for [email or web address]. Describes overall stress level as fine. Physical Health Status and Medical History PAST MEDICAL HISTORY: PAST MEDICAL HISTORY Diagnosis Date Anxiety Depression Family history of epilepsy Gender dysphoria Panic attacks Seizures (HCC) pseudoseizures Traumatic brain injury (HCC) Type 2 diabetes mellitus without retinopathy (HCC) 10/08/2024 Past Surgical History: PAST SURGICAL HISTORY Procedure Laterality Date NONE Current Medications: Current Outpatient Medications Medication Sig Dispense Refill Blood-Glucose Sensor (FREESTYLE GOYO 2 PLUS SENSOR) efrain Use to monitor blood glucose. Change sensor every 15 days. 9 each 3 brivaracetam (BRIVIACT) 100 mg tablet Take 100 [...] mouth three times a day as needed. sertraline (ZOLOFT) 25 mg tablet Take 25 mg by mouth. sertraline (ZOLOFT) 50 mg tablet Take 50 mg by mouth. Sulfacetamide Sodium, Acne, 10 % susp Apply thin layer to face once daily, 30 day supply. tiZANidine (ZANAFLEX) 2 mg tablet Take 2 mg by mouth three times a day as needed. lamoTRIgine (LAMICTAL) 25 mg tablet Take 100 mg by mouth twice daily. metoprolol succinate ER (TOPROL XL) 100 mg Take by mouth. Needle, Disp, 18 G (BD DISPOSABLE NEEDLES) 18 gauge x 1 ndle For use to withdraw testosterone Q2wks 10 Each 5 BD LUER-MARYLOU SYRINGE 1 mL syringe for use with testosterone injection SQ Q2wks 10 Each 5 Needle, Disp, 23 G 23 gauge x 3/4 ndle For use with testosterone administration SQ Q2wks 10 Each 5 No current facility-administered medications for this visit. Behavioral Observation and Assessment Data: Patient was seen virtually The patient was well-groomed. He was cooperative with the interview process. The patient had good eye contact. Appearance: Well dressed, well groomed Behavior: Behaves appropriately during the encounter Social Relatedness: Appropriate for age and developmental level Speech: The patient demonstrates appropriate tone, prosody, colleen, phonetics, and syntax Mood:Euthymic Affect: Full and appropriate to topic Thought Content: The patient displays thought content appropriate to the interview. Thought Process:The thought process is appropriate for situation Hallucinations: No perceptual disturbances Delusions: No delusional thinking is evident Suicidal Ideas/Plans: The patient denies suicidal ideation, intent or plan Homicidal Ideas/Plans: Patient denies any homicidal ideation, plan or intent at this time. Orientation: Person, Place, Time and Situation Memory: Recent intact, Remote intact, and Immediate intact Concentration: Good Attention: The patient demonstrated full attention and focus throughout the interview Fund of Knowledge: Appropriate for age and developmental level Judgment: Demonstrates age appropriate judgment Insight: demonstrates good insight The patient's motivation for treatment was judged to be good. Diagnoses: (F43.10) PTSD (post-traumatic stress disorder) (primary encounter diagnosis) (K31.84) Gastroparesis Estimated Length of Treatment: TBD CPT Code for Visit: [id number] Virtual Psych Diagnotic Eval Face to Face patient Contact Time: 45 minutes Supervising Licensed Psychologist & Billing Provider: Tammy Palacios PSYD documented in this encounter [facility] 02-19-[address] - 02/19/2025 12:58 PM EDT Nutrition Interventions Buoy drops for hydration, these are unflavored and can help keep you better hydrated when intake is poor S[employer] Farm Peptide 1.5 samples to try and get you more liquid nutrition, calories and protein If you like these I can submit to insurance and see if they will cover them and then ship to your home Senna Tea to help with constipation and hydration [email or web address] Follow up with Edenilson Schmitz RD 03/28 @2pm virtually documented in this encounter [facility] 02-19-2025 History of Present illness Narrative [facility] Nutrition Therapy: Virtual Consult - Re Assessment I have communicated my name and active licensure. The patient s identity and physical location were verified at the time of this visit. Either the patient or their legal employee representative has been informed of the risks and benefits of -- and alternatives to -- treatment through a remote evaluation and consents to proceed with the evaluation remotely. Nutrition Diagnosis: Altered Gastrointestinal Tract Function, related to, GI dysmotility (gastroparesis, global dysmotility, colonic inertia), as evidenced by severe constipation leading to gastroparesis, intermittent elevated and low blood sugar, previous weight loss and malnutrition. RECOMMENDED MALNUTRITION DIAGNOSIS: UNABLE TO IDENTIFY MALNUTRITION AT THIS TIME virtual NUTRITION CARE PLAN Nutrition Intervention February 19, 2025 : Buoy drops for hydration, these are unflavored and can help keep you better hydrated when intake is poor Remicalm Peptide 1.5 samples to try and get you more liquid nutrition, calories and protein If you like these I can submit to insurance and see if they will cover them and then ship to your home Senna Tea to help with constipation and hydration [email or web address] Nutrition Monitoring & Evaluation: improvement in GI symptoms Need for Follow up: 03/28 @2pm virtually This is a 24 year-old male with an underlying diagnosis of gastroparesis who is followed by Dr. French. [facility] of chronic migraines, insomnia, seizure, ADD, hypoglycemia. Has met and RD in the past to work on blood sugar control, pt also with food sensory issues. 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 does not want to do any surgical intervention for gastroparesis until constipation is under control and is being worked up for hersprungs. Pt does not chew food and does better with liquid nutrition, so we agreed to try Xunlei peptide 1.5 and if he likes it I can submit paperwork to be sent to his home. Pt agreeable to try buoy drops for hydration as he often feels dehydrated and is active, workouts out 6 times/week. Does not like the taste of many ORS so the unflavored one might be better tolerated. Current Clinical Symptoms # of bowel movements daily: reports has not had bowel movement in the last 1 weeks, previously once/month # of liquid stools daily: none Consistency: hard Bloody bowel movements: yes, because of hemorrhoids Urgency: no Abdominal pain: yes, constant Abdominal distention: yes Nausea/vomiting: yes, unsure where this is coming Heartburn/reflux: no Patient's symptoms are: GI: constipation Diet History: Hardly does not eat Breakfast - water, does well with liquid nutrition, but a lot of the supplements and weight carmel made his stomach hurt Snack - none does not eat during the day Lunch - water does, extremely tired and does not want eat during this time Dinner - one meal at night some protein like chicken, and carbohydrates Beverages - no lytes, water Vitamins/Supplements - --none noted Activity: Activities of Daily Living: Active 50% of the day. 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 No Eating less than 75% of usual intake for more than 2 weeks? No Potential Signs of Inflammation: chronic condition Food Insecurity: No Food Insecurity (02/16/2025) Received from [facility] Hunger Screening Within the past 12 months we worried whether our food would run out before we got money to buy more.: Never True Within the past 12 months the food we bought just didn't last and we didn't have money to get more.: Never True Education Materials Provided: None this visit READINESS TO LEARN Cognitive ability: Alert and oriented Motivation to learn: Interested Family support: Unable to assess - Family not present Instruction provided to: Patient Patient learns best by: Individual Instruction Factors affecting learning: None Physical limitations affecting learning: None Referred by: Dr. French MNT Billing Type: Re-assess 2 units Total Time (mins): 31 SIGNATURE: Edenilson Schmitz RD, JHONATHAN PATIENT NAME: Karis Kovacs DATE: February 19, 2025 TIME: 9:07 AM PAGER: documented in this encounter [facility] 02-19-2025 Note HNO ID: [id number] Author: EDENILSON SCHMITZ RD Service: ? Author Type: Registered Dietitian Type: Progress Notes Filed: 02/20/2025 09:44 Note Text: [facility] Nutrition Therapy: Virtual Consult - Re Assessment I have communicated my name and active licensure. The patient?s identity and physical location were verified at the time of this visit. Either the patient or their legal employee representative has been informed of the risks and benefits of -- and alternatives to -- treatment through a remote evaluation and consents to proceed with the evaluation remotely. Nutrition Diagnosis: Altered Gastrointestinal Tract Function, related to, GI dysmotility (gastroparesis, global dysmotility, colonic inertia), as evidenced by severe constipation leading to gastroparesis, intermittent elevated and low blood sugar, previous weight loss and malnutrition. RECOMMENDED MALNUTRITION DIAGNOSIS: UNABLE TO IDENTIFY MALNUTRITION AT THIS TIME virtual NUTRITION CARE PLAN Nutrition Intervention February 19, 2025 : Buoy drops for hydration, these are unflavored and can help keep you better hydrated when intake is poor S[employer] Farm Peptide 1.5 samples to try and get you more liquid nutrition, calories and protein If you like these I can submit to insurance and see if they will cover them and then ship to your home Senna Tea to help with constipation and hydration [email or web address] Nutrition Monitoring AND Evaluation: improvement in GI symptoms Need for Follow up: 03/28 @2pm virtually This is a 24 year-old male with an underlying diagnosis of gastroparesis who is followed by Dr. French. PMH of chronic migraines, insomnia, seizure, ADD, hypoglycemia. Has met and RD in the past to work on blood sugar control, pt also with food sensory issues. 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 does not want to do any surgical intervention for gastroparesis until constipation is under control and is being worked up for hersprungs. Pt does not chew food and does better with liquid nutrition, so we agreed to try Xunlei peptide 1.5 and if he likes it I can submit paperwork to be sent to his home. Pt agreeable to try buoy drops for hydration as he often feels dehydrated and is active, workouts out 6 times/week. Does not like the taste of many ORS so the unflavored one might be better tolerated. Current Clinical Symptoms # of bowel movements daily: reports has not had bowel movement in the last 1 weeks, previously once/month # of liquid stools daily: none Consistency: hard Bloody bowel movements: yes, because of hemorrhoids Urgency: no Abdominal pain: yes, constant Abdominal distention: yes Nausea/vomiting: yes, unsure where this is coming Heartburn/reflux: no Patient's symptoms are: GI: constipation Diet History: Hardly does not eat Breakfast - water, does well with liquid nutrition, but a lot of the supplements and weight carmel made his stomach hurt Snack - none does not eat during the day Lunch - water does, extremely tired and does not want eat during this time Dinner - one meal at night some protein like chicken, and carbohydrates Beverages - no lytes, water Vitamins/Supplements - --none noted Activity: Activities of Daily Living: Active 50% of the day. 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 No Eating less than 75% of usual intake for more than 2 weeks? No Potential Signs of Inflammation: chronic condition Food Insecurity: No Food Insecurity (02/16/2025) Received from [facility] Hunger Screening Within the past 12 months we worried whether our food would run out before we got money to buy more.: Never True Within the past 12 months the food we bought just didn't last and we didn't have money to get more.: Never True Education Materials Provided: None this visit (more content not included)... [facility] 02-19-2025 Note HNO ID: [id number] Author: JOSEY WHITE, DO Service: ? Author Type: Physician Type: Progress Notes Filed: 02/19/2025 11:38 Note Text: [facility] [place] Gastroparesis/Dysmotility Virtual Consultation This encounter was provided via two-way, live video teleconferencing within the guidelines of state licensure rules for new and established patients. I have communicated my name and active licensure. The patient's identity and physical location were verified at the time of this visit. Either the patient or their legal employee representative has been informed of the risks and benefits of -- and alternatives to -- treatment through a remote evaluation and consents to proceed with the evaluation remotely. Technical difficulties were not encountered. 20 minutes were spent on the teleconference with the patient. An additional 20 minutes was required for chart review/preparation, documentation, orders, and care coordination. Recording using [employer] software for draft documentation of the visit was discussed with the patient/authorized employee representative; all questions welcomed and answered. Patient/authorized employee representative agreed to proceed SERVICE DATE: 02/19/2025 SERVICE TIME: 11:07 AM PRIMARY CARE PHYSICIAN: Kavin French Sr, DO No referring provider defined for this encounter. My final recommendations will be communicated back to the requesting physician by way of shared Medical record or letter to requesting physician via [place] mail. Assessment ASSESSMENT 24 year old adult with medical refractory gastroparesis, the etiology of which is most likely idiopathic. Although patient does have a history of type II diabetes glycemic control has been generally good and no known/specific diabetic complications reported. The possibility of secondary delayed gastric emptying is also highly considered given severe uncontrolled constipation. There is clinical suspicion for mid/hind-gut dysmotility based on bowel patterns and symptom distribution, currently skipping between 1 week and 1 month between bowel movements. Pelvic floor dysfunction and dyssynergia are also likely factors. Case is further confounded by seizure disorder currently maintained on multiple medications with reported GI side effects. Currently patient is marginally tolerating a Full Liquid diet, and does exhibit progressive malnutrition/weight loss. Based on patient's etiology, current symptoms, and dysmotility workup, I am uncertain if patient is an appropriate candidate for pyloric therapy. It was discussed in detail that the procedure would primarily aim to improve symptoms of vomiting/retching as well as delayed fullness. There may be some ancillary improvements to a lesser extent in areas of nausea and upper abdominal pressure, but is not guaranteed. Symptoms response of pain, nausea, bloating, and bowel patterns are unpredictable and may be confounded by other factors. Patient will ultimately require longitudinal adjunctive care including medical, nutritional/dietary, and behavioral/psychosocial support for optimal symptom palliation PLAN I discussed surgical therapy for gastroparesis in detail. Based on this discussion, Karis Kovacs wishes to proceed with continued medical therapies and dysmotility workup. Will need to significant improvements in bowel function before consideration of any gastric surgical interventions. 1. Gastroparesis (K31.84) 2. Chronic idiopathic constipation (K59.04) 3. Dyssynergic defecation (K59.02) 4. Abnormal weight loss (R63.4) Severe, medically refractory gastroparesis with significant constipation, nausea, vomiting, and dysphagia, resulting in marked weight loss. Gastric emptying study from October 2024 demonstrated delayed gastric emptying. EGD on 10/15/2024 showed mild gastric erythema with biopsy negative for celiac disease and H. pylori. Current management with Miralax and Senokot has been ineffective. - Refer to gastroenterology for more aggressive management of constipation, including consideration of prescription medications such as Ibsrela, Amitiza, Trulance, or Motegrity. - Order anorectal manometry to evaluate for dyssynergic defecation. - Educated patient on the importance of addressing constipation prior to considering surgical interventions for gastroparesis, as procedures like G-POEM would not be effective and could worsen symptoms if colonic motility is not improved. - Refer to dietitian for nutritional support; virtual appointment scheduled today at 12:30 PM. - Refer to GI psychologist Dr. Tammy Palacios; appointment scheduled for February 26. - Follow-up in ~6 months after completion of GI evaluation and initiation of more aggressive constipation management. 5. Gastroesophageal reflux disease, unspecified whether esophagitis present (K21.9) GERD symptoms are well controlled with Protonix. - Continue Protonix as prescribed. (more content not included)... [facility] 02-19-2025 History of Present illness Narrative Images from the original note were not included. [facility] [place] Gastroparesis/Dysmotility Virtual Consultation This encounter was provided via two-way, live video teleconferencing within the guidelines of state licensure rules for new and established patients. I have communicated my name and active licensure. The patient's identity and physical location were verified at the time of this visit. Either the patient or their legal employee representative has been informed of the risks and benefits of -- and alternatives to -- treatment through a remote evaluation and consents to proceed with the evaluation remotely. Technical difficulties were not encountered. 20 minutes were spent on the teleconference with the patient. An additional 20 minutes was required for chart review/preparation, documentation, orders, and care coordination. Recording using [employer] software for draft documentation of the visit was discussed with the patient/authorized employee representative; all questions welcomed and answered. Patient/authorized employee representative agreed to proceed SERVICE DATE: 02/19/2025 SERVICE TIME: 11:07 AM PRIMARY CARE PHYSICIAN: Kavin P House Sr, DO No referring provider defined for this encounter. My final recommendations will be communicated back to the requesting physician by way of shared Medical record or letter to requesting physician via [place] mail. Assessment ASSESSMENT 24 year old adult with medical refractory gastroparesis, the etiology of which is most likely idiopathic. Although patient does have a history of type II diabetes glycemic control has been generally good and no known/specific diabetic complications reported. The possibility of secondary delayed gastric emptying is also highly considered given severe uncontrolled constipation. There is clinical suspicion for mid/hind-gut dysmotility based on bowel patterns and symptom distribution, currently skipping between 1 week and 1 month between bowel movements. Pelvic floor dysfunction and dyssynergia are also likely factors. Case is further confounded by seizure disorder currently maintained on multiple medications with reported GI side effects. Currently patient is marginally tolerating a Full Liquid diet, and does exhibit progressive malnutrition/weight loss. Based on patient's etiology, current symptoms, and dysmotility workup, I am uncertain if patient is an appropriate candidate for pyloric therapy. It was discussed in detail that the procedure would primarily aim to improve symptoms of vomiting/retching as well as delayed fullness. There may be some ancillary improvements to a lesser extent in areas of nausea and upper abdominal pressure, but is not guaranteed. Symptoms response of pain, nausea, bloating, and bowel patterns are unpredictable and may be confounded by other factors. Patient will ultimately require longitudinal adjunctive care including medical, nutritional/dietary, and behavioral/psychosocial support for optimal symptom palliation PLAN I discussed surgical therapy for gastroparesis in detail. Based on this discussion, Karis Kp Kovacs wishes to proceed with continued medical therapies and dysmotility workup. Will need to significant improvements in bowel function before consideration of any gastric surgical interventions. 1. Gastroparesis (K31.84) 2. Chronic idiopathic constipation (K59.04) 3. Dyssynergic defecation (K59.02) 4. Abnormal weight loss (R63.4) Severe, medically refractory gastroparesis with significant constipation, nausea, vomiting, and dysphagia, resulting in marked weight loss. Gastric emptying study from October 2024 demonstrated delayed gastric emptying. EGD on 10/15/2024 showed mild gastric erythema with biopsy negative for celiac disease and H. pylori. Current management with Miralax and Senokot has been ineffective. - Refer to gastroenterology for more aggressive management of constipation, including consideration of prescription medications such as Ibsrela, Amitiza, Trulance, or Motegrity. - Order anorectal manometry to evaluate for dyssynergic defecation. - Educated patient on the importance of addressing constipation prior to considering surgical interventions for gastroparesis, as procedures like G-POEM would not be effective and could worsen symptoms if colonic motility is not improved. - Refer to dietitian for nutritional support; virtual appointment scheduled today at 12:30 PM. - Refer to GI psychologist Dr. Tammy Palacios; appointment scheduled for February 26. - Follow-up in ~6 months after completion of GI evaluation and initiation of more aggressive constipation management. 5. Gastroesophageal reflux disease, unspecified whether esophagitis present (K21.9) GERD symptoms are well controlled with Protonix. - Continue Protonix as prescribed. Risks of the procedure including bleeding (including major bleeding requiring transfusion), perforation, infection/abscess, ulceration (need for adherence to acid suppressive therapy), exacerbation of symptoms, symptom recurrence, anesthesia related complications, cardiopulmonary events, thromboembolic events, aspiration/pneumonia, dental gum injury, failure to identify/treat a condition, need for additional procedures/surgeries, as well as other rare complications including were presented. Alternatives of Pyloroplasty, Pyloric Dilation and Botox, and continued medical/dietary management were reviewed. ____ NAME: Karis Kovacs CLINIC NO: [id number] DATE OF SERVICE: February 19, 2025 This is an initial consultation for Karis Kovacs who was referred to me by Dr. Kavin French for evaluation of medical refractory gastroparesis. My final recommendation will be communicated via shared electronic medical record. CHIEF COMPLAINT Idiopathic Gastroparesis HISTORY OF PRESENT ILLNESS Karis Kovacs is a 24 year old adult who comes in today for surgical evaluation for management of gastroparesis. The patient has been evaluated thoroughly including an EGD, and gastric emptying study. Yonatan Kovacs is a 24-year-old female with a history of psychogenic non-epileptic seizures, migraine headaches, SVT, type 2 diabetes, and ADD, presenting for a new surgical evaluation regarding medically refractory gastroparesis. Yonatan reports that her symptoms began in the last week of October last year, when she experienced severe constipation, not having a bowel movement for several weeks, which led to significant weight loss. She went from 110 lbs to 84 lbs in 3 weeks. Last month, she experienced a similar episode, not having a bowel movement for over a month, resulting in weight loss from 106 lbs to 91 lbs. She has tried various medications for constipation, including Miralax and Senokot, without significant improvement. She has not tried Ibsrela, Motegrity, or Linzess. Her last bowel movement was today, but she had not had one for over a week prior. Before that, she did not have a bowel movement for almost a month. She mentions that she was told she was severely infected based on scans. She also reports severe nausea and vomiting, which occur primarily after eating. She experiences abdominal pain, sometimes radiating to her lower back. She denies reflux, heartburn, or regurgitation, and notes that Protonix is effective in controlling these symptoms. She has difficulty swallowing and is seeing a speech pathologist for this issue. She is hardly eating due to swallowing issues and food aversions. She is currently taking multiple medications, including Augmentin for an infection in her arm from the Goyo device, lamotrigine, Proviatt 100 mg BID, clobazam 10 mg at night, flecainide, metoprolol, Thornef, and Protonix. She is not taking Zoloft or any hormonal medications. She uses marijuana products for her seizures. She denies alcohol use. She has a history of top surgery (mastectomy) as part of her transition and a heart catheterization, but no other abdominal or pelvic surgeries. She has not had a feeding tube before. She is seeing a ice cream server in [place] occasionally. She is scheduled to meet with a street cleaner and sql analyst today and a GI psychologist on February 26. She mentions a family history of Hirschsprung's disease and had issues with constipation as a child, though not as severe as currently. Top 3 Symptoms: 1) Constipation, 2) Fullness/Satiety, 3) Nausea Gastric Emptying Study Results (10/2024) (October 2024) Gastric Emptying Study: 82% retention at 1 hour, 77% retention at 2 hours, 64% retention at 4 hours (10/15/2024) EGD: - Normal duodenum - Duodenal biopsies: Negative for celiac disease - Gastric biopsies: Mild reactive gastropathy, no evidence of H. pylori - Gastroesophageal junction: Normal with regular Z-line at 40 cm Abdominal x-ray: Abdominal imaging: Severe fecal stool burden SMART Pill (N/A) Not otrdered EGG (N/A) Not ordered Gastroparesis cardinal symptom index 1. nausea 5 2. retching 1 3. vomiting 1 4. stomach fullness 5 5. not able to finish a normal-sized meal 5 6. feeling excessively full after meals 5 7. loss of appetite 5 8. bloating (feeling like you need to loosen your clothes) 5 9. stomach or belly visibly larger 5 GCSI - 4.11 Scale (0-none; 1-very mild; 2-mild; 3-moderate; 4-severe; 5-very severe) PAST HISTORY PAST MEDICAL HISTORY Diagnosis Date Anxiety Depression Family history of epilepsy Gender dysphoria Panic attacks Seizures (HCC) pseudoseizures Traumatic brain injury (HCC) Type 2 diabetes mellitus without retinopathy (HCC) 10/08/2024 PAST SURGICAL HISTORY Procedure Laterality Date NONE [...] Known Problems Sister No Known Problems Brother SOCIAL HISTORY[1] Current Outpatient Medications on File Prior to Visit Medication Sig Blood-Glucose Sensor (FREESTYLE GOYO 2 PLUS SENSOR) efrain Use to monitor blood glucose. Change sensor every 15 days. erenumab-aooe 140 mg/mL subcutaneous auto-injector (AIMOVIG) Inject [...] administration SQ Q2wks No current facility-administered medications on file prior to visit. REVIEW OF SYSTEMS: Constitutional: (+) unintentional weight loss, (+) decreased oral intake Ears/Nose/Mouth/Throat: (+) dysphagia Gastrointestinal: (+) constipation, (+) nausea, (+) vomiting, (+) abdominal pain, (-) heartburn Musculoskeletal: (+) low back pain Physical Exam LMP 01/02/2025 (Approximate) GENERAL: AAOx3, NAD EYES: Non-icteric, EOMI NOSE: Septum midline, no drainage ORAL: Tongue midline, no exudates NECK: Normal ROM PULM: Breathing non-labored without stridor or wheezing ABDOMEN: Reports soft, distended, mid-lower tenderness EXTREMITIES: Normal ROM SKIN: Non-icteric, no diffuse rashes PSYCH: Appropriate mood and affect. SIGNATURE: Josey White DO PATIENT NAME: Karis Kovacs DATE: February 19, 2025 TIME: 11:07 AM Medical Decision Making: Problems: Moderate: New problem with uncertain prognosis Data: Unique source(s) for external note(s) reviewed: 1 Unique test result(s) reviewed: 2 Unique test(s) ordered: 1 Risk: Moderate: Moderate risk from testing/treatment Medical Decision Making Level: 4 - Moderate [1] Social History Tobacco Use Smoking status: Never Smokeless tobacco: Never Vaping Use Vaping status: Never Used Substance Use Topics Alcohol use: Not Currently Drug use: Not Currently Types: Marijuana documented in this encounter [facility] 02-16-2025 Note XR CHEST 2 VWS PROCEDURE: CHEST, TWO VIEWS (PA and Lateral), 02/16/2025 4:31 PM CLINICAL INDICATION: chest pain, passing out COMPARISON: None IMPRESSION: 1. No acute cardiopulmonary disease. 2. Loop recorder in the anterior left chest wall. Finalized by Rojelio Marcum MD on 02/16/2025 4:34 PM [facility] 02-15-2025 History of Present illness Narrative Images from the original note were not included. Subjective Yonatan Kovacs is a 24 y.o. adult who presents for chronic migraines, botox consult History of Present Illness Patient presents via televisit with video. Yonatan is at home and consents to visit. In the last three months Yonatan has 15 headache days a month. Yonatan experiences photophobia and moderate to severe pain with migraines. Migraines occur 15 times a month. Duration of migraine 24 hours. Yonatan has had migraines and headaches for 10 years. Medications tried: topamax, ajovy, lamictal, metoprolol, zonegran, trileptal, cymbalta, effexor, tizanidine, imitrex, maxalt, nurtec, ubrelvy, aimovig, tylenol, ibuprofen, naproxen Yonatan is having more anxiety. Review of Systems Constitutional: Negative for chills, fatigue and fever. HENT: Negative for tinnitus. Eyes: Negative for photophobia. Respiratory: Negative for shortness of breath. Cardiovascular: Negative for chest pain. Gastrointestinal: Negative for nausea and vomiting. Genitourinary: Negative for frequency. Musculoskeletal: Negative for back pain, gait problem and neck pain. Neurological: Positive for headaches. Negative for dizziness, tremors, weakness, light-headedness and numbness. Psychiatric/Behavioral: Negative. Neurological Exam Mental Status Awake, alert and oriented to person, place and time. Oriented to person, place and time. Speech is normal. Language is fluent with no aphasia. Procedures Objective Height 5' 2 , weight 102 lb. Physical Exam Results Assessment & Plan 24 year old transgender male with chronic migraines. Yonatan is having 15 migraine days a month with duration of 24 hours. Associated migraine symptoms include photophobia. Yonatan has tried multiple acute and preventative including anticonvulsants, antidepressants, muscle relaxers, NSAIDS, OTC, triptans and CGRP blockers. Yonatan is botox candidate every 3 months. I discussed side effects. Yonatan is having worsening anxiety too. I will start buspar. This was discussed with patient all questions answered. Total time 30 minutes spent reviewing records, performing medically appropriate exam, counseling , education, ordering medication, tests, and/or procedures, documenting health information into the health record, communicating results to the patient, and coordinating care. documented in this encounter [facility] 02-14-2025 Telephone encounter Note Spoke to pt per below. He advised he went to urgent care and was prescribed medication for the infection and will pick that up today. Nothing further needed at this time. Jessi Sanford MA [facility] 02-14-2025 Miscellaneous Notes Spoke to pt per below. He advised he went to urgent care and was prescribed medication for the infection and will pick that up today. Nothing further needed at this time. Jessi Sanford MA CGM is not necessary - I do recommend checking glucose with ill symptoms Patient calling in to office. Verified by name and . Patient states that Goyo sensor was removed yesterday and noted redness and yellow pus draining from the insertion site on left arm. States redness about the size of a pea. Denies swelling. Rates pain in left arm 5/10. Admits to chills and nausea today, but denies fever or vomiting. Denies dizziness or lightheadedness. Denies red streaking. Advised urgent care now for patient. Patient agreeable. Advised having another adult drive, to which patient is agreeable. Patient will go now to local urgent care. Encouraged to call with update. Advised ER for worsening symptoms. Patient did not replace Goyo sensor at this time and is using finger stick method. Please advise further recommendations. documented in this encounter [facility] 02-14-2025 Telephone encounter Note CGM is not necessary - I do recommend checking glucose with ill symptoms [facility] 02-12-2025 Telephone encounter Note Patient calling in to office. Verified by name and . Patient states that Goyo sensor was removed yesterday and noted redness and yellow pus draining from the insertion site on left arm. States redness about the size of a pea. Denies swelling. Rates pain in left arm 11/03. Admits to chills and nausea today, but denies fever or vomiting. Denies dizziness or lightheadedness. Denies red streaking. Advised urgent care now for patient. Patient agreeable. Advised having another adult drive, to which patient is agreeable. Patient will go now to local urgent care. Encouraged to call with update. Advised ER for worsening symptoms. Patient did not replace Goyo sensor at this time and is using finger stick method. Please advise further recommendations. AT [facility] 02-06-2025 History of Present illness Narrative Images from the original note were not included. CHIEF COMPLAINT REASON FOR VISIT : Patient is here today for follow-up of the diagnosis below. I am following the plan of care established by Dr Easton, 11/2024 who is present in the office today HPI: INSOMNIA -Reports witnessed snoring. -Yonatan has trouble sleeping. -Only sleeping a few hours a night -Has trouble getting to sleep and staying asleep -breathing issues keep him awake -Has a FU with cardiology and will be seeing fine chemicals operator and having an echo on 02/26 SEIZURE -Last seizure was beginning of July 2024 and 12/15/24 when Yonatan was sick. -He stares off or will have GTC -In November he had GTC, lasted ??, he denies biting tongue or incontinence, afterwards he was tired and confused -Topamax was Dcd due to tremor and wt loss, that was in 01/03, and zonegran was started -No events since med change ADD -Focalin helps a lot with memory and focus. HEADACHES -Persistent -He gets them every day and last hours to all day -Headaches are all over -pressure -Positive for light/sound/dizzy/blurred vision -denies nausea or emesis TREMOR -LUE -intermittent and worse after incraesed physical exercise -no termor otherwise -hard to open and close his hand CURRENT MEDICATIONS: ALLERGIES/DISCONTINUE MEDICATIONS Current Outpatient Medications Medication Instructions azelaic acid (Finacea) 15 % gel Apply thin layer to the face, once daily, 30 day supply brivaracetam (BRIVIACT) 100 mg, Oral, 2 times daily Ciclopirox 1 % shampoo Lather on wet hair, leave on 5 min, rinse 2-3 x week, 30 day supply cloBAZam (ONFI) 10 mg, Oral, Nightly dexmethylphenidate XR (Focalin XR) 10 MG 24 hr capsule TAKE 1 CAPSULE BY MOUTH DAILY, DO NOT CRUSH, CHEW, OR SPLIT flecainide (TAMBOCOR) 100 mg, 2 times daily lamoTRIgine (LAMICTAL) 200 mg, Oral, 2 times daily metoprolol succinate XL (TOPROL-XL) 12.5 mg, Daily Midazolam (Nayzilam) 5 MG/0.1ML solution 1 spray, Nasal, As needed midodrine (PROAMATINE) 5 mg, 3 times daily pantoprazole (PROTONIX) 40 mg, Daily promethazine (Phenergan) 25 MG tablet Instructions: TAKE 1 TABLET BY MOUTH THREE TIMES DAILY NEEDED FOR NAUSEA AND VOMITING FOR 2 DAYS Senna-Time 8.6 MG tablet 2 tablets, 2 times daily topiramate (TOPAMAX) 25 mg, Oral, 2 times daily tretinoin (Retin-A) 0.05 % cream Apply to face, once daily at evening/night time, 30 day supply True Metrix Blood Glucose Test test strip USE TEST STRIP TO TEST BLOOD SUGAR EVERY DAY zonisamide (Zonegran) 25 MG capsule Take 1 capsule (25 mg) by mouth at bedtime for 7 days, THEN 2 capsules (50 mg) at bedtime. Allergies Allergen Reactions Codeine Hives and Itching Other Reaction(s): Hives Other Reaction(s): Not available There are no discontinued medications. PAST MEDICAL HISTORY: SURGICAL/SOCIAL/FAMILY HISTORY DEPRESSION SCREEN: Past Medical History: Diagnosis Date Acne ADD (attention deficit disorder) Diabetes (HCC) Migraine Seizures (HCC) Past Surgical History: Procedure Laterality Date LOOP RECORDER IMPLANT Left MASTECTOMY Bilateral Social History Tobacco Use Smoking status: Never Smokeless tobacco: Never Vaping Use Vaping status: Never Used Substance Use Topics Alcohol use: Never Drug use: Yes Types: Marijuana Family History Problem Relation Name Age of Onset Anxiety disorder Mother Clarissa Kovacs Migraines Mother Clarissa Kovacs Cancer Other Anxiety disorder Brother Eugenio Sanford Migraines Sister Re Cox Anxiety disorder Brother Eugenio Sanford Migraines Sister Re Cox Melanoma Neg Hx Depression: Not at risk (11/25/2023) Received from [facility] PHQ-2 Total Score: 0 REVIEW OF SYMPTOMS: Review of Systems Constitutional: Negative for chills, fatigue and fever. HENT: Negative for tinnitus. Eyes: Negative for photophobia. Respiratory: Negative for shortness of breath. Cardiovascular: Negative for chest pain. Gastrointestinal: Positive for nausea and vomiting. Genitourinary: Negative for frequency. Musculoskeletal: Negative for back pain, gait problem and neck pain. Neurological: Positive for seizures and headaches. Negative for dizziness, tremors, weakness, light-headedness and numbness. Psychiatric/Behavioral: Positive for decreased concentration, dysphoric mood and sleep disturbance. The patient is nervous/anxious. OBJECTIVE: 01/03/2025 4:18 PM 12/06/2024 1:19 PM 09/06/2024 11:56 AM Vitals BMI 17.01 kg/m2 18.11 kg/m2 19.02 kg/m2 BSA (m2) 1.36 m2 1.4 m2 1.44 m2 Systolic 118 110 Diastolic 75 80 Heart Rate 82 Height (in) 5' 2 5' 2 Weight (lb) 93 99 104 Visit Report Report Report EXAM: Neurological Exam Mental [...] reflexes: Aj's absent. Ankle clonus absent. Coordination Jlmzmt-jl-jost, rapid alternating movements and ysjn-rn-giio normal bilaterally without dysmetria. Gait Normal casual, toe, heel and tandem gait. Romberg is absent. PROCEDURE: ASSESSMENT AND PLAN: EVALUATION: 2023 LABS - Vit D 23.8, TSH 0.652, B12 314 2023 Levels - Lamictal 13 01/2024 CT Head unremarkable 01/2024 CT Cervical unremarkable 12/2023 MRI Lumbar mild DDD at L4/5 08/2023 MRI Brain unremarkable 12/2023 EMG BLE bilateral S1 radiculopthy that is mild in degree 08/2023 Extended EEG 9.5 hr EEG normal - no events recorded 2020 Video EEG - 3 captured events of full body convulsions, leg kicking and hip thrusting lasting 30sec, 15 sec and 15 sec. EEG was normal without correlation of events for epileptiform discharges. 06/2024 Amb EEG normal within 24 hour recording 04/2023 echocardiogram showed global left ventricular systolic function normal. EF 60 65 percent. Right ventricle normal in size. Normal diastolic function. No significant valvular abnormalities. Seizure Like Activity/NPES 24 year old transgender male with provoked breakthrough seizure like event in setting of influenza and norovirus in 12/2024. Yonatan had been seizure free for almost 6 months and has had a few breakthrough events that seem to be triggered by stress or illness. Yonatan did have recent ambulatory EEG which was normal within 24 hour recording. These are likely pseudoseizure. Yonatan is treated with anticonvulsants and had normal ambulatory EEG yet seizures are unpredictable. He is on Focalin for inattention/lack of focus. Insomnia/sleep deprivation can be trigger to seizures and Yonatan needs better control. We have discussed seizure precipitants in the past. I explained that 1) sleep deprivation can lower the seizure threshold, 2) alcohol can lower the seizure threshold, and should be avoided or used in moderation, 3) medications containing diphenhydramine or phenylephrine increase the risk of seizures and should be avoided, and 4) other medications may also interact with AEDs- he should contact me with question about new medications. Hypertrophic Cardiomyopathy/POTS He is being evaluated by cardiology, NO, for Hypertrophic Cardiomyopathy. He states the SOB keeps him awake. He is scheduled for an updated echo and electophy eval for possible pacemaker. Migraine Headaches He has a persistent headache that seemingly never goes away. He has been on numerous medications without much benefit. He is on Zonegran and I will increase this. I think poor sleep is likely contributing to his chronic migraine. I have request a botox eval. We can try Remeron as mentioned in prior note once his cardiology workup is complete. Poor sleep will make headaches harder to manage. He has tried imitrex, ubrelvy, topamax, ajovy, aimovig, zonegran, doxepin, lamictal, zoloft, keppra, zanaflex, singulair, periactin, metoprolol Tremor/Myoclonus He gets what sounds like myoclonus in his left arm after increased use like his martial arts. Hopefully zonegran will help. Diagnoses and all orders for this visit: Psychogenic nonepileptic seizure - zonisamide (Zonegran) 100 MG capsule; Take 1 capsule (100 mg) by mouth at bedtime Migraine without aura and without status migrainosus, not intractable - zonisamide (Zonegran) 100 MG capsule; Take 1 capsule (100 mg) by mouth at bedtime Chronic insomnia Tremor PLAN: Increase zonegran to 100mg at bed for tremor and seizure like activity Continue metoprolol per card - can help migraines Continue lamictal 200mg BID - seizure, headaches Continue focalin 10mg XR - ADD Continue Onfi 10mg daily - Seizure like activity Continue Briviact 100mg BID - Seizure like activity Consider CBT for NPES and insomnia Continue with [facility] for cardiac eval/mgt Consider Remeron for sleep Botox eval requested I counseled the patient on the possible diagnosis, prognosis, and possible treatment options. I will see the patient back in 3 months, or sooner if needed, to make further recommendations documented in this encounter [facility] 02-05-2025 Miscellaneous Notes Drug Juan is calling Gale Bassett APRN.CNP today with concern regarding Medication Problem (Blood-Glucose Sensor (FREESTYLE GOYO 3 PLUS SENSOR) efrain). Patient has the Freestyle Goyo 2 Device. Can this script be changed to the Freestyle Goyo 2 Plus sensors so the patient will not need a new device? Please advise. Patient has been identified by name and birthdate. Duration of symptoms: N/A Person calling: pharmacy: [facility] at: [phone] Was an appointment scheduled: No Closing statement: Results or non-symptom based questions: Thank you for calling [facility], your call will be returned within the next business day. Fabienne Britt documented in this encounter [facility] 02-05-2025 Telephone encounter Note Drug Juan is calling Gale Bassett APRN.CNP today with concern regarding Medication Problem (Blood-Glucose Sensor (FREESTYLE GOYO 3 PLUS SENSOR) efrain). Patient has the Freestyle Goyo 2 Device. Can this script be changed to the Freestyle Goyo 2 Plus sensors so the patient will not need a new device? Please advise. Patient has been identified by name and birthdate. Duration of symptoms: N/A Person calling: pharmacy: [facility] at: [phone] Was an appointment scheduled: No Closing statement: Results or non-symptom based questions: Thank you for calling [facility], your call will be returned within the next business day. Fabienne Britt [facility] 01-23-2025 History of Present illness Narrative Cardiology Consultation- New Consult Reason for referral: Dizziness, tachycardia and history of SVT Chief Complaint Patient presents with New Patient Visit Graziani-Tachycardia HPI: Karis Tam is a 24 y.o. adult identify himself as a male here for second opinion for tachycardia dizziness and SVT. He had extensive history and has been seen by several manager floral in the past. Record were reviewed. He was suspected to have SVT and recently underwent EP evaluation that failed to induce any tachyarrhythmia. No ablation was performed. Patient had been placed on flecainide and metoprolol for years. He does have a implantable loop recorder. Also reports intermittent episodes of orthostatic hypotension highly suspicious of POTS. He reports symptoms of shortness of breath. He is concerned also because of family history of hypertrophic cardiomyopathy. He had been on combination of flecainide and metoprolol in addition to midodrine. He does describe shortness of breath. Had history of seizure and he followed by neurology. Assessment 1. Symptoms of palpitation and tachycardia. Patient carries diagnosis of SVT and has been treated with flecainide. Recent EP study failed to induce any tachyarrhythmia. He does have an implantable loop recorder 2. Symptoms of shortness of breath 3. Symptoms of orthostatic hypotension suspicious of POTS has been treated with midodrine 4. History of seizure 5. Family history of hypertrophic obstructive cardiomyopathy with several in the family his last echocardiogram was couple of years ago Plan 1. For the time being I advised the patient to proceed with an echocardiogram 2. Will do loop recorder recheck. 3. Patient believes flecainide has not been effective to prevent his tachycardia I will consider weaning him off flecainide after I review his diagnostic testing 4. I encouraged him to increase his fluid and salt intake 5. Follow-up after testing is done 6. I reviewed numerous pieces of information including his EP study, previous cardiac workup, his manager floral note, his fine chemicals operator neurologist note, and his neurologist note Past Medical History: He has no past medical history on file. Surgical History: He has a past surgical history that includes Mastectomy (Bilateral); Cardiac electrophysiology procedure (2024); and Upper gastrointestinal endoscopy. Family History: Family History[1] Social History: Social History Tobacco Use Smoking status: Never Smokeless tobacco: Never Substance Use Topics Alcohol use: Never Allergies: Codeine and Topiramate Current Medications: Current Outpatient Medications Medication Instructions albuterol 90 mcg/actuation inhaler 2 puffs, Every 4 hours PRN brivaracetam (BRIVIACT) 100 mg, 2 times daily cloBAZam (ONFI) 10 mg, Daily RT cyclobenzaprine (FLEXERIL) 5 mg, 3 times daily PRN dexmethylphenidate XR (FOCALIN XR) 10 mg, Daily flecainide (TAMBOCOR) 100 mg, 2 times daily fludrocortisone (FLORINEF) 0.1 mg, oral, Daily lamoTRIgine (LAMICTAL) 200 mg, 2 times daily metoprolol succinate XL (TOPROL-XL) 25 mg, Daily midodrine (PROAMATINE) 5 mg, 3 times daily nasal spray Nayzilam 5 mg/spray (0.1 mL) spray,non-aerosol 0.1 mg/kg, Once pantoprazole (PROTONIX) 40 mg, Daily promethazine (PHENERGAN) 25 mg, Every 6 hours PRN senna 8.6 mg tablet 2 tablets, 2 times daily zonisamide (ZONEGRAN) 50 mg, Daily Vitals: Vitals: 01/23/25 1330 01/23/25 1331 BP: 114/78 110/82 BP Location: Left arm Right arm Patient Position: Sitting Sitting Pulse: 74 Weight: (!) 45 kg (99 lb 3.2 oz) Height: 1.575 m (5' 2 ) EKG done in office today Review of Systems Cardiovascular: Positive for dyspnea on exertion, irregular heartbeat, near-syncope and syncope. Neurological: Positive for dizziness. Objective Physical Exam Constitutional: Appearance: Normal appearance. HENT: Nose: Nose normal. Neck: Vascular: No carotid bruit. Cardiovascular: Rate and Rhythm: Normal rate. Pulses: Normal pulses. Heart sounds: Normal heart sounds. Pulmonary: Effort: Pulmonary effort is normal. Abdominal: General: Bowel sounds are normal. Palpations: Abdomen is soft. Musculoskeletal: General: Normal range of motion. Cervical back: Normal range of motion. Right lower leg: No edema. Left lower leg: No edema. Skin: General: Skin is warm and dry. Neurological: General: No focal deficit present. Mental Status: He is alert. Psychiatric: Mood and Affect: Mood normal. Behavior: Behavior normal. Thought Content: Thought content normal. Judgment: Judgment normal. Assessment and Plan: 1. Supraventricular tachycardia, unspecified Follow Up In Cardiology ECG 12 Lead Transthoracic Echo Complete Referral to Pacemaker Clinic and Follow Up 2. Shortness of breath Transthoracic Echo Complete fludrocortisone (Florinef) 0.1 mg tablet 3. Palpitations ECG 12 Lead Transthoracic Echo Complete fludrocortisone (Florinef) 0.1 mg tablet 4. Dizziness and giddiness 5. Implantable loop recorder present Referral to Pacemaker Clinic and Follow Up CANCELED: Referral to Pacemaker Clinic and Follow Up 6. Family history of hypertrophic cardiomyopathy 7. Never smoked tobacco 8. BMI < 18.5 Scribe Attestation By signing my name below, I, Sarah Daly LPN Scribe attest that this documentation has been prepared under the direction and in the presence of Kings Robles MD. Provider Attestation - Scribe documentation All medical record entries made by the Scribe were at my direction and personally dictated by me. I have reviewed the chart and agree that the record accurately reflects my personal performance of the history, physical exam, discussion and plan. [1] Family History Problem Relation Name Age of Onset Supraventricular tachycardia Sister Mitral valve prolapse Sister documented in this encounter [facility] Work Phone: 01-23-2025 Instructions Sarah Ortega LPN - 01/23/2025 1:10 PM EDT Please bring all medicines, vitamins, and herbal supplements with you when you come to the office. Prescriptions will not be filled unless you are compliant with your follow up appointments or have a follow up appointment scheduled as per instruction of your physician. Refills should be requested at the time of your visit. BMI was below normal measurement. Current weight: (!) 45 kg (99 lb 3.2 oz) Weight change since last visit (-) denotes wt loss 99.2 lbs Weight gain needed to achieve BMI of 18.5 = 1.7 Lbs Provided dietary education for weight gain to the patient. The following attachments cannot be sent through Care Everywhere.High Calorie, High Protein Diet (Mozambican)documented in this encounter [facility] Work Phone: 01-10-2025 Telephone encounter Note Gastric Emptying Study? Yes Diabetic: Yes When was your last EGD? 2024 Has the patient had Gastric Bypass? no Has the patient had a Gastric Sleeve? no Has the patient had a Shelley or Hiatal Hernia Repair? no Has the patient had POP/Pyloroplasty? no Is the patient currently on TPN? no Does the patient have a G/J Tube? no Do you have at least 3 bowel movements a week? no Referring Provider: Tere Solis Patient is aware of wait list [facility] 01-10-2025 Miscellaneous Notes Gastric Emptying Study? Yes Diabetic: Yes When was your last EGD? 2024 Has the patient had Gastric Bypass? no Has the patient had a Gastric Sleeve? no Has the patient had a Shelley or Hiatal Hernia Repair? no Has the patient had POP/Pyloroplasty? no Is the patient currently on TPN? no Does the patient have a G/J Tube? no Do you have at least 3 bowel movements a week? no Referring Provider: Tere Solis Patient is aware of wait list documented in this encounter [facility] 01-07-2025 Telephone encounter Note Endocrinology & Metabolism Social Work Progress Note Provider Action / FYI N/A Karis Goodrich Kovacs [phone] Type of Contact: telephone Endocrine BUNCHER OPERATOR Referral Reason: Appointment Scheduling Assistance/General Appointment Needs Contact Made?: No- personal care worker left a voicemail with her name, number, and requesting a return phone call. Note/Intervention: personal care worker calls Patient to offer assistance making follow up appointments as ordered. personal care worker leaves Patient a voicemail with callback number and sends a [employer] message. [facility] referral placed: No Signature: PEG Benton, BUNCHER OPERATOR Patient Name: Karis Kovacs Date: 01/07/2025 Time: 1:36 PM Pager/Contact #: [phone] During this patient contact I spent approximately 10 minutes in reviewing the patient's chart and counseling regarding community resources and coordinating care. [facility] Work Phone: 01-07-2025 Miscellaneous Notes Endocrinology & Metabolism Social Work Progress Note Provider Action / FYI N/A Karis Kovacs [id number] Type of Contact: telephone Endocrine BUNCHER OPERATOR Referral Reason: Appointment Scheduling Assistance/General Appointment Needs Contact Made?: No- personal care worker left a voicemail with her name, number, and requesting a return phone call. Note/Intervention: personal care worker calls Patient to offer assistance making follow up appointments as ordered. personal care worker leaves Patient a voicemail with callback number and sends a [employer] message. [facility] referral placed: No Signature: PEG Benton LSW Patient Name: Karis Kovacs Date: 01/07/2025 Time: 1:36 PM Pager/Contact #: [phone] During this patient contact I spent approximately 10 minutes in reviewing the patient's chart and counseling regarding community resources and coordinating care. documented in this encounter [facility] 01-04-2025 Instructions Gale Bassett APRN.BANKING MANAGEMENT CONSULTING MANAGER - 01/04/2025 3:35 PM EDT - Arrange [...] and kidney function. documented in this encounter [facility] 01-04-2025 Note HNO ID: [id number] Author: GALE BASSETT APRN.AMELIA Service: ? Author Type: Nurse Practitioner Type: Progress Notes Filed: 01/04/2025 18:16 Note Text: Endocrinology Follow Up Subjective History of Present [...] for most recent 14 days: CGM Type: [employer] G7 CGM recording adequate for interpretation: Yes [...] notable for no leukocytosis or anemia, electrolytes unremarkable, normal renal function, lactate within normal limits, troponin negative x2, ECG without STEMI or arrhythmia. ETOH negative. Patient given IV Keppra load with no further seizures. No evidence of status epilepticus. Reassuring neurological exam, and patient with a [...] is no improvement, a referral to another manager floral will be considered. IN OFFICE TODAY High Ketone Levels: - Recent lab results showed ketone levels at 80 and CO2 levels at 17. - Reports eating regularly, but experiencing weight loss. - Blood glucose levels fluctuate, staying in the 120s before dropping. - Consumes proteins, chicken, and various meals; eats breakfast, lunch, and dinner most days. - Drinks (more content not included)... [facility] 01-04-2025 History of Present illness Narrative Endocrinology Follow Up Subjective History of Present [...] for most recent 14 days: CGM Type: [employer] G7 CGM recording adequate for interpretation: Yes [...] notable for no leukocytosis or anemia, electrolytes unremarkable, normal renal function, lactate within normal limits, troponin negative x2, ECG without STEMI or arrhythmia. ETOH negative. Patient given IV Keppra load with no further seizures. No evidence of status epilepticus. Reassuring neurological exam, and patient with a [...] is no improvement, a referral to another manager floral will be considered. IN OFFICE TODAY High [...] SQ [facility] [employer] [facility] - [place] [employer] Syringes brivaracetam (BRIVIACT) 100 mg tablet [...] testosterone [facility] [employer] [facility] [employer] - [place] [employer] Needle, Disp, 23 G 23 gauge x 3/4 ndle For use with testosterone administration SQ [facility] [employer] [facility] - [place] [employer] Syringes ondansetron orally disintegrating (ZOFRAN ODT) [...] LMP 01/02/2025 (Approximate) SpO2 99% BMI 16.79 kg/m General appearance: thin, malnourished Heart: RRR Lungs: [...] persistent emesis and gastroparesis. - Referred to sql analyst for dietary management. - Prescribed nutritional supplements to ensure adequate caloric and protein intake. - Referred to speech therapy for swallowing evaluation and management. - discussed no current diabetes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 for Follow up: as needed Referred by: Gale Bassett, OUTREACH COORDINATOR, BANKING MANAGEMENT CONSULTING MANAGER Consult Billing Type/Increments: Initial Assessment/15 minutes, 3 increment(s), 45 minutes Start time: 3:00 PM End time: 3:42 PM My final report will be communicated back to the requesting physician by way of shared medical record. Signed by: Gloria Zacarias RD documented in this encounterOhiohealth [facility]heastern [facility] Center01-12-2025 Telephone encounter Note * Telephone Encounter - Lavonne Thomas NP - 07/08/2024 9:11 PM EST I placed order for 24-72 hour EEG with video for home. Alma please schedule patient. [facility] CenterLiyzuudkml23-90-1088 Miscellaneous Notes* Telephone Encounter - Lavonne Thomas [...] called in stating she is at the [facility] due to seizures and they are wanting to transfer her to [place] for a 24 hour EEG, Pt does not want to do that and wants to know if she can get this done at the office? documented in this encounterNOLakeland Regional HospitalVvdejfcowt95-65-3385 Telephone encounter Note* Telephone Encounter - Siobhan Pandey - 07/08/2024 5:33 PM EST Per Lavonne Thomas NP yes we can order 24 hour video at office [facility] [id number] Telephone encounter Note* Telephone Encounter - Siobhan Pandey - 07/08/2024 5:09 PM EST Subjective Patient ID: Yonatan Kovacs is a 24 y.o. female pt called in stating she is at the [facility] due to seizures and they are wanting to transfer her to [place] for a 24 hour EEG, Pt does not want to do that and wants to know if she can get this done at the office? [facility] [id number] Telephone encounter Note* Telephone Encounter - Lavonne Thomas NP - 07/03/2024 2:25 PM EST OARRS reviewed. [facility] [id number] Miscellaneous Notes* Telephone Encounter - Lavonne Thomas NP - 07/03/2024 2:25 PM EST OARRS reviewed. documented in this encounterSaint Mary's Health CenterOxmvpdpzpl62-44-6715 History of Present illness Narrative* Debbie Mckeon MD - 06/29/2024 4:45 PM EST Images from the original note were not included. [address] [facility] [id number] Patient: Karis Kovacs Date of : 2000 [...] teeth Depression Diabetes mellitus type 2, controlled ([facility]) dx 2020 Dizziness Epilepsy ([facility]) dx 16 years old Fractures right thumb Gender dysphoria Head injury fell off skate board about 6 ft at age 15 y.o Headache Hematuria here for workup for pending cystoscopy History of renal calculi Implantable loop recorder present upper left chest Memory loss Nexplanon in place Orthostatic hypotension Panic disorder Rash acne on Ceftin as maintenance dose Seizures ([facility]) last seizure was 08/23/23 SVT (supraventricular tachycardia) ([facility]) Syncope 07/2023 Transgender Patient prefers to be called [facility] Visual impairment Past Surgical History: Procedure Laterality Date BREAST SURGERY Bilateral 12/04/2020 mastectomy CYSTOSCOPY INSERTION STENT URETER Right 11/24/2021 Performed by Debbie Mckeon MD at [facility] CYSTOSCOPY REMOVAL STENT Right 12/09/2021 Performed by Debbie Mckeon MD at [facility] CYSTOSCOPY RETROGRADE PYELOGRAM Bilateral 10/17/2023 Performed by Debbie Mckeon MD at [facility] INSERTION LOOP RECORDER 08/03/2023 LASER HOLMIUM URETEROSCOPY RENAL STONES < OR=1CM Right 11/24/2021 Performed by Debbie Mckeon MD at [facility] Family History Problem Relation Age of Onset [...] - Ultrasound retroperitoneal complete; Future Epilepsy, 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[facility]) Other orders - mirabegron (MYRBETRIQ) 50 mg [...] center for the back pain. Referral to ob/gyn physician for the ovarian cyst. Previous ultrasound showed [...] you for your understanding. documented in this encounterKettering [facility]12-27-2024 Telephone encounter Note* Telephone Encounter - Gale Bassett APRN.CNP - 06/22/2024 7:33 AM EST Metformin should be discontinued from med list at this time - not diabetic at this time - no elevated glucose levels noted on CGM. [facility]12-27-2024 Miscellaneous Notes* Telephone Encounter - Gale Bassett APRN.CNP - 06/22/2024 7:33 AM EST Metformin should be discontinued from med list at this time - not diabetic at this time - no elevated glucose levels noted on CGM. * Telephone Encounter - Jessi Sanford MA - 06/21/2024 4:13 PM EST Requester: Pharmacy Patients last Endocrinology visit occurred 06/18/24. Follow-up evaluation has been established Upcoming Endocrinology Appointments - Next 365 Days Visit Type Date Time Department CÉSAR DIETITIAN VISIT 07/19/2024 9:00 AM ENDO DIAB [facility] . Requested Prescriptions Pending Prescriptions [...] needs scheduled appointment No documented in this encounterOhiohealth [facility]heastern [facility] Center12-26-2024 Telephone encounter Note * Telephone Encounter - Jessi Sanford MA - 06/21/2024 4:13 PM EST Requester: Pharmacy Patients last Endocrinology visit occurred 06/18/24. Follow-up evaluation has been established Upcoming Endocrinology Appointments - Next 365 Days Visit Type Date Time Department CÉSAR DIETITIAN VISIT 07/19/2024 9:00 AM ENDO DIAB ED [facility] . Requested Prescriptions Pending Prescriptions Disp Refills [...] PSS NOTE: Patient needs scheduled appointment No [facility]12-23-2024 Telephone encounter Note* Telephone Encounter - Karo Slater - 06/18/2024 3:16 PM EST Pt is scheduled on 07/27/24 and added to [facility]12-23-2024 Miscellaneous Notes* Telephone Encounter - Karo Slater - 06/18/2024 3:16 PM EST Pt is scheduled on 07/27/24 and added to [facility] documented in this encounterOhiohealth Southeastern Medical Center12-23-2024 NoteHNO ID: [id number] Author: JESSI SANFORD MA Service: ? Author Type: Sports Development Officer Type: Progress Notes Filed: 06/18/2024 10:50 Note Text:[facility]12-23-2024 History of Present illness Narrative* Jessi Sanford MA - 06/18/2024 10:18 AM EST Images from the original note were not included. * Gale Bassett APRN.BANKING MANAGEMENT CONSULTING MANAGER - 06/18/2024 10:00 AM EST DISTANCE HEALTH VISIT This visit is a virtual Video encounter. It required patient-provider interaction for the medical decision making as documented below. I have communicated my name and active licensure. The patient's identity and physical location were verified at the time of this visit. Either the patient or their l egal employee representative has been informed of the risks [...] for most recent 14 days: CGM Type: [employer] R[employer] G7 CGM recording adequate for interpretation: Yes [...] SQ Q2wks [facility] - [place] and Syringes brivaracetam (BRIVIACT) 100 mg tablet [...] testosterone Q2wks [facility] - [place] [employer] Needle, Disp, 23 G 23 gauge x 3/4 ndle For use with testosterone administration SQ Q2wks Medical Supplies and DME - [place] [employer]ringes ondansetron orally disintegrating (ZOFRAN ODT) [...] placed) to help with texture aversion and Sales Office Assistant (appt scheduled) to work with you for [...] etc - advised early treatment will prevent senior living complications and possible hospital admission Vision changes [...] which included preparing to see the patient, fynt-bo-pauw patient care, completing clinical documentation, obtaining and/or reviewing separately obtained history, performing a medically appropriate examination, counseling and educating the pat ient/family/caregiver, and ordering medications, tests, or procedures. Gale Bassett APRN.AMELIA Department of Endocrinology [facility] Answers submitted by the patient for this [...] Loss: No Seizures: No documented in this encounterOhiohealth Southeastern Medical Center12-23-2024 NoteHNO ID: [id number] Author: GALE BASSETT APRN.AMELIA Service: ? Author [...] visit. Either the patient or their legal employee representative has been informed of the risks [...] for most recent 14 days: CGM Type: [employer]7 CGM recording adequate for interpretation: Yes Worn [...] SQ Q2wks Medical Supplies and DME - [place] [employer] brivaracetam (BRIVIACT) 100 mg tablet [...] Phenyltriazine Derivatives LORazepam (ATIV (more content not included)...[facility] 06-12-2024 Telephone encounter Note* Telephone Encounter - Marian Damon - 06/12/2024 2:01 PM EST Patient called in to say he's having tingling, numbness, and extremely painful headaches. Please follow up with patient and advise. [facility] [id number] Miscellaneous Notes* Telephone Encounter - Marian Damon - 06/12/2024 2:01 PM EST Patient called in to say he's having tingling, numbness, and extremely painful headaches. Please follow up with patient and advise. documented in this encounterSaint Mary's Health [id number] NoteUT Electrophysiology Consult Note Reason for visit: event monitor from 01/2023 , palpitations 06/05/24 Patient here for 4 mo follow up intermittent palpitations and positional lightheadedness. C/o chest pain and SOB. C/o night sweats and having to change his shirt several times during the night. C/o fatigue. 02/07/24 Patient was recently evaluated by Jacqueline Godfrey after admission for near syncope and questionable seizures. She was initially admitted to [facility] and then thereafter transferred to [facility]. Reportedly he had vtay-cz-gjfx seizures while he was undergoing his physical [...] to male transgender FMH- Maternal grandmother early ND- 30's, Maternal grandfather- early ND in 40's Allergies-none Home meds-Effexor and testosterone injections Per Dr. Esparza 09/23/20 HPI: 20-year-old patient with a history of seizure disorder was recently seen by Ms. Bruce for complaints of palpitations. He states that he has felt them quite often and was significantly bothered by it on August 10 that he went to [facility]. EKG that performed shows evidence of [...] history Family medical history-paternal grandfather of an ND at 46 years of age, paternal uncle CAD, sister with SVT, grandmother A. rukhsana Social-never smoker, admits occasional alcohol about once or twice a year, daily marijuana use PMH: No past medical history on file. PSH: No past surgical history on file. SH: Social Determinants of Health Tobacco Use: Low Risk (05/21/2024) Received from [facility] Healthcare Patient History Smoking Tobacco Use: Never Smokeless Tobacco Use: Never Passive Exposure: Not on file Alcohol Use: Not At Risk (11/25/2023) Received from [facility], [facility] AUDIT-C Frequency of Alcohol Consumption: Monthly or less Average Number of Drinks: 1 or 2 Frequency of Binge Drinking: Never Financial Resource Strain: Not on file Food Insecurity: No Food Insecurity (02/04/2024) [facility] Hunger Screening Within the past 12 months we worried whether our food would run out before we got money to buy more.: Never True Within the past 12 months the food we bought just didn't last and we didn't have money to get more.: Never True Transportation Needs: No Transportation Needs (11/25/2023) [facility] PRAPARE - Transportation Lack of Transportation (Medical): No Lack of Transportation (Non-Medica (more content not included)...[facility]12-02-2024 Telephone encounter Note* Telephone Encounter - Enriqueta Goss - 05/28/2024 11:06 AM EST Patient called and states that [facility] in [place] is unable to fill the Focalin as they are currently out. Patient is wanting to know if this can be resent to [facility] in [place]. [phone] [facility] [id number] Miscellaneous Notes* Telephone Encounter - Enriqueta Goss - 05/28/2024 11:06 AM EST Patient called and states that [facility] in [place] is unable to fill the Focalin as they are currently out. Patient is wanting to know if this can be resent to [facility] in [place]. [phone] documented in this encounterSaint Mary's Health CenterSbejmlticc72-48-5012 History of Present illness Narrative* Caleb Easton MD - 05/21/2024 1:20 PM EST Images from the original note were not included. CHIEF COMPLAINT REASON FOR VISIT: seizures, migraines, ADD HPI: Yonatan Kovacs is a 23 y.o. female who presents for a follow up. He did bring aimovig injection. He states Tuesday made 3 months he has been seizure free. He states the [employer] is not doing anything for him. He [...] Depression: Not at risk (11/25/2023) Received from [facility], [facility] PHQ-2 Total Score: 0 REVIEW OF SYMPTOMS: [...] reflexes: Aj's absent. Ankle clonus absent. Coordination Nahexz-mc-dnnn, rapid alternating movements and opwr-ct-zqpm normal bilaterally without dysmetria. Gait Normal casual, [...] Follow up 3 months. documented in this encounterSaint Mary's Health [id number] Telephone encounter Note* Telephone Encounter - Jessi Sanford MA - 05/18/2024 4:34 PM EST Called and informed pt of below message. Placed sensors at Desk C for berry picker. Jessi Sanford MA [facility]11-22-2024 Miscellaneous Notes* Telephone Encounter - Jessi Sanford MA - 05/18/2024 4:34 PM EST Called and informed pt of below message. Placed sensors at Desk C for berry picker. Jessi Sanford MA * Telephone Encounter - Gale Bassett APRN.[facility] - 05/18/2024 4:24 PM EST Please discontinue [...] dial D[place]/ [place] documented in this encounterOhiohealth Southeastern Medical Center11-22-2024 Telephone encounter Note * Telephone Encounter - Gale Bassett APRN.CNP - 05/18/2024 4:24 PM EST Please discontinue metformin and come in for 2 more sensors - to see how you do off of the medication [facility]11-22-2024 Telephone encounter Note* Telephone Encounter - Jessi Sanford MA - 05/18/2024 3:36 PM EST Images from the original note were not included. Full Dexcom report printed and placed on providers desk for review. [facility]11-22-2024 Telephone encounter Note* Telephone Encounter - Jaqueline Coronado RN - 05/18/2024 2:15 PM EST Pt calls Seen 04-16-2024 Ov notes reviewed Asking if provider would like pt to stay on dexcom 7 He has applied the last disk to his arm Pharm on dial [place]/ [place] [facility]11-07-2024 History of Present illness Narrative* Ainsley Graham [...] Patient reports already being scheduled tosee a sql analyst to help work on diet. Discussed starting [...] Next Visit: 2 months documented in this encounterSaint Mary's Health [id number] NoteHNO ID: [id number] Author: BASIM STEARNS LSW Service: ? Author Type: Grain Elevator Motor Starter Type: Progress Notes Filed: 04/30/2024 12:34 Note Text: Endocrine Psychology Welcome Group Karis Kovacs 2000 [phone] Date of Service: April 30, 2024 Patient advised of group visit and informed of privacy restrictions with group appointment. Patient instructed to be in a quiet, private area. Provided information for general psychology both within and outside the [facility]. This is appropriate for patients who experience mental health symptoms such as Depression, Anxiety, OCD, Bipolar disorder, etc. Discussed Endocrine Psychology resources for individuals who experience Night Eating, Binge Eating, Emotional Eating, Body Image, and Support for long-term weight management. Current Endocrine Psych Treatment consists of Individual and Group appointments. Informed patient on Endocrine personal care worker services to assist with community resource management. Patient is cleared to schedule with Endocrine Psychology Services (individual appointments, group appointments, etc.) This appointment was conducted by: CHEYENNE Nicholas April 30, 2024 12:34 [facility]Dxdxanlk94-64-7609 History of Present illness Narrative* Basim Stearns LSW - 04/30/2024 12:34 PM EST Endocrine Psychology Welcome Group Karis Kovacs 2000 [phone] Date of Service: April 30, 2024 Patient advised of group visit and informed of privacy restrictions with group appointment. Patientinstructed to be in a quiet, private area. Provided information for general psychology both within and outside the [facility]. This is appropriate for patients who experience mental health symptoms such as Depression, Anxiety, OCD, Bipolar disorder, etc. Discussed Endocrine Psychology resources for individuals who experience Night Eating, Binge Eating,Emotional Eating, Body Image, and Support for long-term weight management. Current Endocrine Psych Treatment consists of Individual and Group appointments. Informed patient on Endocrine personal care worker services to assist with community resource management. Patient is cleared to schedule with Endocrine Psychology Services (individual appointments, group appointments, etc.) This appointment was conducted by: CHEYENNE Nicholas April 30, 2024 12:34 PM documented in this encounterOhiohealth Southeastern Medical Center10-21-2024 Instructions* Patient Instructions* Gale Bassett APRN.CNP - [...] maybe look at more than 1 type [place] - try a variety [place] m[place] Protein Supplement: - Whey protein isolate (powder for mixing with milk, milk substitutes, or water) - best taken afterexercise - Pre made ready to drink protein shakes: Examples: Evolve (plant based protein shake), OWYN (plant based protein shake), Orgain Clean Protein (also comes in powder) , [employer] Message me in 2 and 4 weeks so we can discuss next steps with diabetes documented in this encounterOhiohealth Southeastern Medical Center10-21-2024 Nurse Note* Jessi Sanford MA - 04/16/2024 3:12 PM EDT Last Eye Exam: thinks about a year ago Last Foot Exam: none Last A1C: 04/16/24 5.3% Not checking blood sugar regularly. [facility]10-21-2024 Nurse Note* Jessi Sanford MA - 04/16/2024 3:12 PM EDT Last Eye Exam: thinks about a year ago Last Foot Exam: none Last A1C: 04/16/24 5.3% Not checking blood sugar regularly. documented in this encounterOhiohealth Southeastern Medical Center10-21-2024 History of Present illness Narrative* Gale Bassett, ROSA.AMELIA - 04/16/2024 3:00 PM EDT Endocrinology Initial Diabetes Assessment Karis Kovacs is here for a consultation regarding: Diabetes My final recommendations will be communicated back to the requesting physician by way of shared Medical record or letter to requesting physician via US mail. PCP is Kavin French Sr, DO Kavin French Sr [address] [place] [address] Subjective History of Present Illness Karis Kovacs [...] as above Physical Activity: Physically active with ShepHertzing Diet: Breakfast: cereal - Krave with 2% [...] SQ Q2wks Medical Supplies and DME - [place] [employer]ringes lamoTRIgine (LAMICTAL) 25 mg tablet Take 100 mg by mouth twice daily. Anticonvulsant - Phenyltriazine Derivatives LORazepam (ATIVAN) 1 mg tablet Take 1 mg by mouth q 12 HR. Antianxiety Agent - Benzodiazepines Needle, Disp, 18 G (BD DISPOSABLE NEEDLES) 18 gauge x 1 ndle For use to withdraw testosterone Q2wks Medical Supplies and DME - [place] [employer] Needle, Disp, 23 G 23 gauge x 3/4 ndle For use with testosterone administration SQ Q2wks Medical Supplies and DME - [place] [employer]ringes phenytoin ER (DILANTIN) 100 mg [...] which included preparing to see the patient, jyqr-vx-buyu patient care, completing clinical documentation, obtaining and/or reviewing separately obtained history, performing a medically appropriate examination, counseling and educating the pat ient/family/caregiver, and ordering medications, tests, or procedures. Gale Bassett, CARRIE, BANKING MANAGEMENT CONSULTING MANAGER [facility] Endocrinology Specialties Department [address] [place] [phone] documented in this encounterOhiohealth Southeastern Medical Center10-21-2024 NoteHNO ID: [id number] Author: GALE BASSETT APRN.AMELIA Service: ? Author [...] Kavin French Sr, DO Kavin French Sr [address] [place] [address] Subjective History of Present Illness Karis Kovacs is a 23 year old adult who presents today for evaluation of Diabetes . Diagnosed with Diabetes 2019. Pertinent medical history of . History of [...] as above Physical Activity: Physically active with ShepHertzing Diet: Breakfast: cereal - Krave with 2% [...] SQ Q2wks Medical Supplies and DME - [place] [employer]ringes lamoTRIgine (LAMICTAL) 25 mg tablet Take 100 mg by mouth twice daily. Anticonvulsant - Phenyltriazine Derivatives LORazepam (ATIVAN) 1 mg tablet Take 1 mg by mouth q 12 HR. Antianxiety Agent - Benzodiazepines Needle, Disp, 18 G (BD DISPOSABLE NEEDLES) 18 gauge x 1 ndle For use to withdraw testosterone Q2wks Medical Supplies and DME - [place] [employer] Needle, Disp, 23 G 23 gauge x 3/4 ndle For use with testosterone administration SQ Q2wks Medical Supplies and DME - [place] [employer]ringes phenytoin ER (DILANTIN) 100 mg [...] Codeine Hives, Itching Revi (more content not included)...[facility]08-22-2024 History of Present illness Narrative* Caleb Easton [...] Depression: Not at risk (11/25/2023) Received from [facility], [facility] PHQ-2 Total Score: 0 REVIEW OF SYMPTOMS: [...] reflexes: Aj's absent. Ankle clonus absent. Coordination Jsioji-qr-cyho, rapid alternating movements and oqxd-pc-wmem normal bilaterally without dysmetria. Gait Normal casual, [...] tablets if needed for sleep. Seizure disorder ([facility]) I counseled the patient on the possible side effects and interactions of medications. Follow up 3 months. documented in this encounterSaint Mary's Health [id number] History of Present illness Narrative* Jaja Rice, OUTREACH COORDINATOR-BANKING MANAGEMENT CONSULTING MANAGER - 12/28/2023 1:00 PM EDT Images from the original note were not included. [facility] [address] [facility] [phone] Subjective Patient ID: Karis Kovacs is a [...] teeth Depression Diabetes mellitus type 2, controlled ([facility]) dx 2020 Dizziness Epilepsy ([facility]) dx 16 years old Fractures right thumb Gender dysphoria Head injury fell off skate board about 6 ft at age 15 y.o Headache Hematuria here for workup for pending cystoscopy History of renal calculi Implantable loop recorder present upper left chest Memory loss Nexplanon in place Orthostatic hypotension Panic disorder Rash acne on Ceftin as maintenance dose Seizures ([facility]) last seizure was 08/23/23 SVT (supraventricular tachycardia) ([facility]) Syncope 07/2023 Transgender Patient prefers to be called [facility] Visual impairment SOCIAL HISTORY Social History Occupational [...] procedures Referring and communicating with other health chronic care nurse (not separately reported) Documenting clinical information in the electronic or other health record Independently interpreting results (not separately reported) and communicating results to the patient/family/caregiver Care coordination (not separately reported) Thank you for the referral. Jaja Rice CNP [facility] This note was created with the assistance of a speech recognition program. While intending to generate a timely document that accurately reflects the content of the visit, no guarantee can be provided that every grammatical or spelling mistake has been or will be identified or corrected. Thank you for your understanding. MILAGROS Duffy 12/28/23 1652 documented in this [facility]07-03-2024 Instructions* Patient Instructions* MILAGROS Duffy - 12/28/2023 1:00 PM EDT MRI lumbar spine, call [phone] to schedule We will call you with MRI results and further recoommendations documented in this [facility]06-22-2024 Miscellaneous Notes* Telephone Encounter - Tito Durán RN - 12/17/2023 1:23 PM EDT ----- Message from Laura sent at 12/17/2023 1:26 PM EDT ----- Him Grady at [facility] requesting discharge summary from 11/24/23 from [facility] * Telephone Encounter - Tito Durán RN - 12/17/2023 1:23 PM EDT Epic accessed and and DC summary from [facility] faxed. documented in this encounterKettering [facility]06-22-2024 Telephone encounter Note* Telephone Encounter - Tito Durán RN - 12/17/2023 1:23 PM EDT ----- Message from [employer] sent at 12/17/2023 1:26 PM EDT ----- Him Grady at [facility] requesting discharge summary from 11/24/23 from [facility]06-22-2024 Telephone encounter Note* Telephone Encounter - Tito Durán RN - 12/17/2023 1:23 PM EDT Epic accessed and and DC summary from [facility] faxed. [facility]06-06-2024 Hospital Discharge instructions* Discharge Instructions* Aman Tapia MD - 12/01/2023 6:27 PM EDT Return to this emergency room immediately if your symptoms persist, worsen or if new ones form. Make sure you follow-up with your primary care doctor within the next 1-2 business days. * Attachments The following attachments cannot be sent through Care Everywhere. * Seizure (Mozambican) [facility] History of Present illness Narrative* Jaja Gonzalezley, OUTREACH COORDINATOR-BANKING MANAGEMENT CONSULTING MANAGER - 11/15/2023 12:30 PM EDT Images from the original note were not included. [facility] [address] [phone] Subjective Patient ID: Karis Kovacs is a [...] teeth Depression Diabetes mellitus type 2, controlled ([facility]) dx 2020 Dizziness Epilepsy ([facility]) dx 16 years old Fractures right thumb Gender dysphoria Head injury fell off skate board about 6 ft at age 15 y.o Headache Hematuria here for workup for pending cystoscopy History of renal calculi Implantable loop recorder present upper left chest Memory loss Nexplanon in place Orthostatic hypotension Panic disorder Rash acne on Ceftin as maintenance dose Seizures ([facility]) last seizure was 08/23/23 SVT (supraventricular tachycardia) ([facility]) Syncope 07/2023 Transgender Patient prefers to be called [employer] Visual impairment SOCIAL HISTORY Social History Occupational [...] low back pain with bilateral sciatica - [place], [place]; Future - naproxen (NAPROSYN) 500 mg tablet; Take 1 tablet (500 mg total) by mouth in the morning and 1 tablet (500 mg total) before bedtime. Dispense: 60 tablet; Refill: 3 2. Muscle spasm - [place], [place]; Future - naproxen (NAPROSYN) 500 mg tablet; Take 1 tablet (500 mg total) by mouth in the morning and 1 tablet (500 mg total) before bedtime. Dispense: 60 tablet; Refill: 3 3. Chronic bilateral low back pain, unspecified whether sciatica present - [place], [place]; Future - naproxen (NAPROSYN) 500 mg tablet; Take 1 tablet (500 mg total) by mouth in the morning and 1 tablet (500 mg total) before bedtime. Dispense: 60 tablet; Refill: 3 4. Low back pain, unspecified back pain laterality, unspecified chronicity, unspecified whether sciatica present - [place], [place]; Future - naproxen (NAPROSYN) 500 mg [...] procedures Referring and communicating with other health chronic care nurse (not separately reported) Documenting clinical information in the electronic or other health record Independently interpreting results (not separately reported) and communicating results to the patient/family/caregiver Care coordination (not separately reported) Thank you for the referral. Jaja Rice CNP [facility] This note was created with the assistance of a speech recognition program. While intending to generate a timely document that accurately reflects the content of the visit, no guarantee can be provided that every grammatical or spelling mistake has been or will be identified or corrected. Thank you for your understanding. MILAGROS Duffy 11/15/23 1505 documented in this encounterKettering [facility]05-21-2024 Instructions* Patient Instructions* MILAGROS Duffy - 11/15/2023 12:30 PM EDT Home exercises, perform each exercise 10 repetitions per day Referral to pain management Follow up in 6-8 weeks * Attachments The following attachments cannot be sent through Care Everywhere. * Back Exercises ([place]ozambican) * Exercises for Upper Back Pain ([place]ozambican) documented in this encounterKettering Health [facility] Center04-22-2024 Miscellaneous Notes* Telephone Encounter - Debbie Mckeon MD - 10/17/2023 7:48 PM EDT Please schedule follow up in 6 months with PA documented in this encounterKettering [facility] Center04-22-2024 Telephone encounter Note* Telephone Encounter - Debbie Mckeon MD - 10/17/2023 7:48 PM EDT Please schedule follow up in 6 months with PA [facility]04-15-2024 History and physical note* DAWSON Vazquez - 10/10/2023 10:00 AM EDT PRE-ADMISSION TESTING HISTORY AND PHYSICAL EXAM DATE: 10/10/23 PCP: KAVIN FRENCH DO CHIEF COMPLAINT: Left flank pain HISTORY OF PRESENT ILLNESS: Karis Kovacs, a 23 y.o. White or adult, presents to [facility] for a pre-surgical H&P. Father is [...] teeth Depression Diabetes mellitus type 2, controlled ([facility]) dx 2020 Dizziness Epilepsy ([facility]) dx 16 years old Fractures right thumb Gender dysphoria Head injury Headache Hematuria here for workup for pending cystoscopy History of renal calculi Implantable loop recorder present upper left chest Memory loss Nexplanon in place Orthostatic hypotension Panic disorder Rash acne on Ceftin as maintenance dose Seizures ([facility]) last seizure was 08/23/23 SVT (supraventricular tachycardia) ([facility]) Syncope 07/2023 Transgender Patient prefers to be called Yonatan Visual impairment PAST SURGICAL HISTORY: Past Surgical History: Procedure Laterality Date BREAST SURGERY Bilateral 12/04/2020 mastectomy CYSTOSCOPY INSERTION STENT URETER Right 11/24/2021 Performed by Debbie Mckeon MD at [facility] CYSTOSCOPY REMOVAL STENT Right 12/09/2021 Performed by [facility] MD at [facility] HOSPITAL INSERTION LOOP RECORDER 08/03/2023 [facility] URETEROSCOPY RENAL STONES < OR=1CM Right 11/24/2021 Performed by Debbie Mckeon MD at [facility] FAMILY HISTORY: Family History Problem Relation Age [...] the most recent lab values available in [facility] at the time ofthe office visit and additional labs may have been drawn since that time. ASSESSMENT / DIAGNOSIS: Gross hematuria PLAN: Karis Kovacs is scheduled for cystoscopy retrograde pyelogram bilateral by Dr. Mckeon on 10/17/23. DAWSON Vazquez 10/10/23 1050 DAWSON Vazquez 10/10/23 1104 DAWSON Vazquez 10/10/23 1130 [facility]04-15-2024 History and physical note* DAWSON Vazquez - 10/10/2023 10:00 AM EDT PRE-ADMISSION TESTING HISTORY AND PHYSICAL EXAM DATE: 10/10/23 PCP: KAVIN FRENCH DO CHIEF COMPLAINT: Left flank pain HISTORY OF PRESENT ILLNESS: Karis Kovacs, a 23 y.o. White or adult, presents to [facility] for a pre-surgical H&P. Father is [...] teeth Depression Diabetes mellitus type 2, controlled ([facility]) dx 2020 Dizziness Epilepsy ([facility]) dx 16 years old Fractures right thumb Gender dysphoria Head injury Headache Hematuria here for workup for pending cystoscopy History of renal calculi Implantable loop recorder present upper left chest Memory loss Nexplanon in place Orthostatic hypotension Panic disorder Rash acne on Ceftin as maintenance dose Seizures ([facility]) last seizure was 08/23/23 SVT (supraventricular tachycardia) ([facility]) Syncope 07/2023 Transgender Patient prefers to be called Yonatan Visual impairment PAST SURGICAL HISTORY: Past Surgical History: Procedure Laterality Date BREAST SURGERY Bilateral 12/04/2020 mastectomy CYSTOSCOPY INSERTION STENT URETER Right 11/24/2021 Performed by Debbie Mckeon MD at [facility] CYSTOSCOPY REMOVAL STENT Right 12/09/2021 Performed by Debbie Mckeon MD at [facility] INSERTION LOOP RECORDER 08/03/2023 LASER HOLMIUM URETEROSCOPY RENAL STONES < OR=1CM Right 11/24/2021 Performed by Debbie Mckeon MD at [facility] FAMILY HISTORY: Family History Problem Relation Age [...] the most recent lab values available in [facility] at the time ofthe office visit and additional labs may have been drawn since that time. ASSESSMENT / DIAGNOSIS: Gross hematuria PLAN: Karis Kovacs is scheduled for cystoscopy retrograde pyelogram bilateral by Dr. Mckeon on 10/17/23. DAWSON Vazquez 10/10/23 1050 DAWSON Vazquez 10/10/23 1104 DAWSON Vazquez 10/10/23 1130 documented in this encounterKettering Health Behavior[facility]04-15-2024 Instructions* Patient Instructions* Siobahn Cain RN - 10/10/2023 10:00 AM EDT SURGERY DATE:10-17-23 ARRIVAL TIME:7:00am [facility]: Entrance # 6 Outpatient Surgery Center next to the Emergency Center. Bring a photo ID and your insurance card with you the day of surgery. If you have a Living Will/Durable Power of Paste Up Artist Apprentice for Health Care which is not on file, please bring a copy with you the day of surgery. Please shower morning of procedure DO NOT apply deodorant, powder, lotion, aftershave, perfume, make-up, nail turkish. HOLD ASPIRIN and ASPIRIN PRODUCTS for 7 days prior to surgery. IF you have been prescribed ASPIRIN by your Lumber Hacker or primary care physician, CONTACT Lumber Hacker or physician about holding aspirin for surgery. HOLD NSAIDs - Ibuprofen, Motrin, Aleve, Celebrex, mobic, meloxicam, etc. for 3 days prior to surgery. You may use Tylenol. HOLD vitamins, minerals, herbal supplements, and Holistic supplements for 7 days prior to surgery. Examples: Ephedra, garlic, gingko, ginseng, fish oil, (Lovaza, Vascepa), Kava, Vitamin E, Saw [place], [place]'s Wort, Maggie, Vitamin E). (exceptions - continue [...] an anesthesia consent form. documented in this encounterKettering Health Behavioral [facility] Center04-15-2024 Miscellaneous Notes* Perioperative Nursing Note - Siobhan Cain RN - 10/10/2023 10:00 AM EDT Emailed Gayatri at Dr Mckeon's office of anesthesia's request for patient to have procedure at [facility]. documented in this encounterKettering Health Behavioral Medical Center04-15-2024 Nurse Note* Perioperative Nursing Note - Siobhan Cain RN - 10/10/2023 10:00 AM EDT Emailed Gayatri at Dr Mckeon's office of anesthesia's request for patient to have procedure at [facility]. [facility]03-26-2024 History of Present illness Narrative* Jaja Rice APRN-AMELIA - 09/20/2023 11:00 AM EDT Images from the original note were not included. [facility] [address] [address] Subjective Patient ID: Karis Kovacs [...] new bowel/bladder dysfunction, saddle anesthesia, balance problems, senior living sales counselor strength weakness, difficulty with buttoning/writing, and loss of coordination. Current and prior evaluation and treatments: -Medication trials for this problem: Tylenol - Alternative methods to treatment: None -Physical therapy/Home exercise program: None -palliative care physician: None -Pain management: None -Pertinent spine surgeries/previous [...] seen. Carina Garcia MD Clinical Neurophysiology Fellow [facility] Teaching/Attending Physician Attestation: I have personally [...] epilepsy. Carina Garcia MD Clinical Neurophysiology Fellow [facility] Teaching/Attending Physician Attestation: I have personally [...] kidney disease Diabetes mellitus type 2, controlled ([facility]) states diagnosed on Tuesday DUFFY (dyspnea on exertion) Epilepsy ([facility]) Gender dysphoria Head injury Panic disorder Seizures ([facility]) last seizure was November 13 had 5-6+ [...] procedures Referring and communicating with other health chronic care nurse (not separately reported) Documenting clinical information in the electronic or other health record Independently interpreting results (not separately reported) and communicating results to the patient/family/caregiver Care coordination (not separately reported) Jaja Rice CNP [facility] This note was created with the assistance of a speech recognition program. While intending to generate a timely document that accurately reflects the content of the visit, no guarantee can be provided that every grammatical or spelling mistake has been or will be identified or corrected. Thank you for your understanding. MILAGROS Duffy 09/23/23 0806 documented in this encounterKettering Health Behavioral Medical Center03-26-2024 Instructions* Patient Instructions* MILAGROS Duffy - 09/20/2023 11:00 AM EDT Physical therapy, call to schedule Ibuprofen 600 mg every 8 hours as needed for pain Tizanidine 2 mg every 8 hours as needed for muscle spasms Follow up in 8 weeks * Attachments The following attachments cannot be sent through Care Everywhere. * Back Precautions (Mozambican) documented in this encounterKettering Health Behavioral Medical Center03-25-2024 History of Present illness Narrative* [...] contraceptive mere was inserted according to the digital marketing manager's instructions without complications. The mere was palpable [...] urine VANESA HAILE CMA documented in this encounterKettering Health Behavioral Medical Center03-21-2024 Miscellaneous Notes* Telephone Encounter - DAWSON Segura - 09/15/2023 5:59 PM EDT Please schedule him for cystoscopy/possible bilateral retrograde pyelograms under local anesthesia with Dr. Mckeon at [place]. Diagnosis: Gross hematuria, urinary retention * Telephone Encounter - Gayatri Durham - 09/15/2023 5:[address] MCKEON: PLEASE REVIEW AND ADVISE IF YOU WANT THIS CASE UNDER LOCAL OR MAC. THANK YOU * Telephone Encounter - Debbie Mckeon MD - 09/15/2023 5:59 PM EDT mac documented in this encounterKettering Health Behavioral [facility] Center03-21-2024 Telephone encounter Note* Telephone Encounter - DAWSON Segura - 09/15/2023 5:59 PM EDT Please schedule him for cystoscopy/possible bilateral retrograde pyelograms under local anesthesia with Dr. Mckeon at [place]. Diagnosis: Gross hematuria, urinary retention [facility]03-21-2024 Telephone encounter Note* Telephone Encounter - Gayatri Durham - 09/15/2023 5:[address] MCKEON: PLEASE REVIEW AND ADVISE IF YOU WANT THIS CASE UNDER LOCAL OR MAC. THANK YOU [facility]03-21-2024 Telephone encounter Note* Telephone Encounter - Debbie Mckeon MD - 09/15/2023 5:59 PM EDT mac [facility]03-19-2024 History of Present illness Narrative* Nette Lackey [...] cyst from CT scan from 2-2 at [facility]. Reviewed contraceptive options with patient, including [...] kidney disease Diabetes mellitus type 2, controlled ([facility]) states diagnosed on Tuesday DUFFY (dyspnea on exertion) Epilepsy ([facility]) Gender dysphoria Head injury Panic disorder Seizures ([facility]) last seizure was November 13 had 5-6+ seizures SVT (supraventricular tachycardia) Transgender Urinary tract infection Visual impairment SURGICAL HX Past Surgical History: Procedure Laterality Date BREAST SURGERY Bilateral 12/04/2020 mastectomy CYSTOSCOPY INSERTION STENT URETER Right 11/24/2021 Performed by Debbie Mckeon MD at [facility] CYSTOSCOPY REMOVAL STENT Right 12/09/2021 Performed by Debbie Mckeon MD at [facility] INSERTION LOOP RECORDER 08/03/2023 [facility] URETEROSCOPY RENAL STONES < OR=1CM Right 11/24/2021 Performed by Debbie Mckeon MD at [facility] FAMILY HX Family History Problem Relation Age [...] Cyst of left ovary - [facility] LONGWALL SHEARER OPERATOR - [facility] - [place], [place] - Consult LIKELY OVULATORY FOLLICULAR CYST FU PELVIC SONO NEXPLANON PLACEMENT SCHEDULED NEXT WEEK WILL PROVIDE OVULATORY SUPPRESSION AND CONTRACEPTION UPT TODAY AND RPT NEXT WEEK PRIOR TO INSERTION CONSIDER TESTOSTERONE PELLETS FOR FUTURE HRT URINARY RETENTION UNKNOWN ETIOLOGY--EST ETIOLOGY MD Francia MIMS LPN documented in this encounterKettering Health Behavioral [facility] Center03-13-2024 Evaluation + Plan note* Assessment & Plan [...] necessary will be determined at the follow-up. [facility]03-13-2024 Miscellaneous Notes* Assessment & Plan Note - [...] determined at the follow-up. documented in this encounterKettering Health Behavioral Medical Center03-13-2024 History of Present illness Narrative* DAWSON Segura - 09/07/2023 1:00 PM EDT Images from the original note were not included. [address] [place] [address] [facility] [id number] Patient: Karis Kovacs Date of : 2000 [...] not address his issues. He went to [facility] on 07/29/2023. Report from CT without [...] records, but he reports that he went [facility] both for seizures and back pain. [...] kidney disease Diabetes mellitus type 2, controlled ([facility]) states diagnosed on Tuesday DUFFY (dyspnea on exertion) Epilepsy ([facility]) Gender dysphoria Head injury Panic disorder Seizures ([facility]) last seizure was November 13 had 5-6+ seizures SVT (supraventricular tachycardia) Transgender Urinary tract infection Visual impairment Past Surgical History: Procedure Laterality Date BREAST SURGERY Bilateral 12/04/2020 mastectomy CYSTOSCOPY INSERTION STENT URETER Right 11/24/2021 Performed by Debbie Mckeon MD at [facility] CYSTOSCOPY REMOVAL STENT Right 12/09/2021 Performed by Debbie Mckeon MD at [facility] LASER HOLMIUM URETEROSCOPY RENAL STONES < OR=1CM Right 11/24/2021 Performed by Debbie Mckeon MD at [facility] Family History Problem Relation Age of Onset [...] Cyst of left ovary - [facility] LONGWALL SHEARER OPERATOR - [facility] - [place], [place] - Consult; Future Gross hematuria - [...] center for the back pain. Referral to ob/gyn physician for the ovarian cyst. Previous ultrasound showed [...] DAWSON Segura 09/07/23 1330 documented in this encounterGrant HospitalLender Sentinel [facility] Rehabilitation [id number] Miscellaneous Notes* Telephone Encounter - Renetta Segrey - 08/16/2023 9:34 AM EST This patient was scheduled to see you last week on 08/10/23 in [place]. We rescheduled his appointment to 09/07/23. He was okay with that but he wanted to let you know that he is still see's blood in his urine. I told him that I would relay that to you. * Telephone Encounter - DAWSON Segura - 08/16/2023 9:34 AM EST Please apologize for me. Let him know I was out sick. Is he willing to come to [place] again I can squeeze him in at 11:45 sometime this week documented in this encounterKettering Health Behavior[facility] Center02-20-2024 Telephone encounter Note* Telephone Encounter - Renetta Sergey - 08/16/2023 9:34 AM EST This patient was scheduled to see you last week on 08/10/23 in [place]. We rescheduled his appointment to 09/07/23. He was okay with that but he wanted to let you know that he is still see's blood in his urine. I told him that I would relay that to you. [facility]02-20-20[facility] Telephone encounter Note* Telephone Encounter - DAWSON Segura - 08/16/2023 9:34 AM EST Please apologize for me. Let him know I was out sick. Is he willing to come to [place] again I can squeeze him in at 11:45 sometime this week [facility]02-14-2024 History of Present illness Narrative* Lavonne Thomas, OIL TANKER CAPTAIN - 08/10/2023 12:30 PM EST Subjective Yonatan Kovacs is a 23 y.o. [...] reflexes: Aj's absent. Ankle clonus absent. Coordination Bkreno-kz-kezs, rapid alternating movements and ripm-cz-bgmt normal bilaterally without dysmetria. Gait Normal casual, [...] 100 mg daily Yonatan can buy on Syncano to treatment memory health and numbness. Migraines have not worsened and Imitrex aborts them. documented in this encounterSaint Mary's Health [id number] Miscellaneous Notes* Telephone Encounter - DAWSON Segura [...] PM EST Pt states he went to [facility] after his 07/28/2023 ER visit and was told that he has an ovarian cyst and kidney stones. I called to request the records/images to PACS but had to [facility]. I alsosent a fax request. [facility] fax # [phone] * Telephone Encounter - DAWSON Segura - 08/02/2023 2:34 PM EST Tomas/Renetta: Can we get him for an appointment here or [place] in the next week or two? * Telephone Encounter - Tomas Varela CMA - 08/02/2023 2:34 PM EST Patient has been scheduled for next Tuesday in our [place] office. documented in this encounterKettering Health Behavioral Medical Center02-06-2024 Telephone encounter Note* Telephone Encounter - DAWSON [...] the next week or so for UA/PVR [facility] [employer] [id number] Telephone encounter Note* Telephone Encounter - Joanne Bailey LPN - 08/02/2023 2:34 PM EST Pt states he went to [facility] after his 07/28/2023 ER visit and was told that he has an ovarian cyst and kidney stones. I called to request the records/images to PACS but had to [facility]. I alsosent a fax request. [facility] fax # [phone] [facility]02-06-2024 Telephone encounter Note* Telephone Encounter - DAWSON Segura - 08/02/2023 2:34 PM EST Tomas/Renetta: Can we get him for an appointment here or [place] in the next week or two? [facility] [employer] [id number] Telephone encounter Note* Telephone Encounter - Tomas Varela CMA - 08/02/2023 2:34 PM EST Patient has been scheduled for next Tuesday in our [place] office. [facility] [employer] [id number] Evaluation + Plan note* Assessment & Plan [...] a referral to the spine care center. [facility] [employer] [id number] Miscellaneous Notes* Assessment & Plan Note - [...] the spine care center. documented in this encounterSheltering Arms Hospital [employer] [id number] History of Present illness Narrative* DAWSON Segura - 07/07/2023 11:00 AM EST Images from the original note were not included. [address] [facility] [id number] Patient: Karis Kovacs Date of : 2000 [...] records, but he reports that he went [facility] both for seizures and back pain. [...] kidney disease Diabetes mellitus type 2, controlled ([facility]) states diagnosed on Tuesday DUFFY (dyspnea on exertion) Epilepsy ([facility]) Gender dysphoria Head injury Panic disorder Seizures ([facility]) last seizure was November 13 had 5-6+ seizures SVT (supraventricular tachycardia) ([facility]) Transgender Urinary tract infection Visual impairment Past Surgical History: Procedure Laterality Date BREAST SURGERY Bilateral 12/04/2020 mastectomy CYSTOSCOPY INSERTION STENT URETER Right 11/24/2021 Performed by Debbie Mckeon MD at [facility] CYSTOSCOPY REMOVAL STENT Right 12/09/2021 Performed by Debbie Mckeon MD at [facility] L[facility]ER HOLMIUM URETEROSCOPY RENAL STONES < OR=1CM Right 11/24/2021 Performed by Debbie Mckeon MD at [facility] Family History Problem Relation Age of Onset [...] DAWSON Segura 07/07/23 1248 documented in this encounterGrant HospitalLender Sentinel [facility] Rehabilitation [id number] Instructions* Patient Instructions* DAWSON Segura - 07/07/2023 11:00 AM EST I do not see any obvious stones on x-ray. There are some limitations with the study though, so to rule out your kidneys as the source of the pain, let us have you get an ultrasound. Call central scheduling at [phone] to schedule the ultrasound. I will watch [...] investigate musculoskeletal sources for your symptoms Enriqueta: [phone] (Ext [phone]) -Tue documented in this encounterKettering Health Behavioral Medical Center08-13-2023 Hospital Discharge instructions* Discharge Instructions* Stefanie Ortez [...] or any other concerns. documented in [facility] encounterVAL[facility] History of Past illness Narrative* Problem Noted [...] this encounter (statuses as of 04/09/2022) [facility] CenterEvaluation noteNo assessment information availableMercy Health Tiffin Hospital Work Phone: Evaluation note* Diagnosis Seizure (HCC) Other convulsions documented in this encounter [facility] note* Diagnosis Intractable complex partial epilepsy (CMS/HCC)- Primary Cervical radiculopathy Brachial neuritis or radiculitis nos Insomnia due to medical condition Organic insomnia, unspecified Migraine without aura and without status migrainosus, not intractable (CMS/HCC) Memory loss Neck pain Cervicalgia Cervical paraspinal muscle spasm Spasm of muscle documented in this encounter [facility] HealthcareEvaluation note* Diagnosis Seizure-like activity (HCC)- Primary Other convulsions [facility] encounter [facility]* Diagnosis Onset Date Resolution Status Constipation acute Loss of appetite acute Nausea acute Weight loss, abnormal acute [facility] Work Phone: Evaluation note* Diagnosis [...] Psychogenic nonepileptic seizure documented in this encounter [facility]Evaluation [facility]* Diagnosis Acne vulgaris- Primary Other acne Telogen effluvium documented in this encounter [facility] HealthcareEvaluation note* Diagnosis ADD (attention deficit disorder) without hyperactivity Attention deficit disorder without mention of hyperactivity documented in this encounter [facility] HealthcareEvaluation note* Diagnosis ADD (attention deficit disorder) without hyperactivity- Primary Attention deficit disorder without mention of hyperactivity Intractable chronic migraine without aura and without status migrainosus (CMS/HCC) Intractable complex partial epilepsy (CMS/HCC) documented in this encounter [facility] HealthcareEvaluation note* Diagnosis 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, intractable (CMS/HCC) Localization-related (focal) (partial) epilepsy and epileptic syndromes with simple partial seizures, with intractable epilepsy Epilepsy, 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CMS/HCC) documented in this encounter [facility] HealthcareEvaluation note* Diagnosis Intractable chronic migraine without aura and without status migrainosus (CMS/HCC)- Primary documented in this encounter [facility] HealthcareEvaluation note* Diagnosis ADD (attention deficit disorder) without hyperactivity Attention deficit disorder without mention of hyperactivity Insomnia due to medical condition Organic insomnia, unspecified Seizure disorder (CMS/HCC) Unspecified epilepsy without mention of intractable epilepsy Primary insomnia Persistent disorder of initiating or maintaining sleep documented in this encounter [facility] HealthcareEvaluation note* Diagnosis 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, intractable (CMS/HCC) Localization-related (focal) (partial) epilepsy and epileptic syndromes with simple partial seizures, with intractable epilepsy Epilepsy, 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CMS/HCC) documented in this encounter [facility] HealthcareEvaluation note* Diagnosis Seizure-like activity (HCC)- Primary [...] of urinary calculi documented in this encounter [facility]* Diagnosis Seizure-like activity (HCC)- [...] of insulin (HCC) documented in this encounter [facility]* Diagnosis Right kidney stone- Primary Right kidney stone- Primary Chronic bilateral low back pain with bilateral sciatica Cyst of left ovary Other and unspecified ovarian cyst Gross hematuria Right kidney stone- Primary Epilepsy, 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CMS-HCC) documented [facility] this encounter [facility]* Diagnosis ADD (attention deficit disorder) without hyperactivity Attention deficit disorder without mention of hyperactivity documented in this encounter [facility] HealthcareEvaluation note* Diagnosis Seizure disorder (CMS/HCC)- Primary Unspecified epilepsy without mention of intractable epilepsy documented in this encounter [facility] HealthcareEvaluation note* Diagnosis Right kidney stone- Primary Right kidney stone- Primary Chronic bilateral low back pain with bilateral sciatica Cyst of left ovary Other and unspecified ovarian cyst Gross hematuria Hematuria, unspecified type- Primary documented in this encounter [facility]* Diagnosis Seizure-like activity (HCC)- Primary [...] of mild degree documented in this encounter [facility]* Diagnosis Intractable complex partial epilepsy (CMS/HCC) documented in this encounter [facility] HealthcareEvaluation note* Diagnosis Acne vulgaris- Primary Other acne documented in this encounter [facility] HealthcareEvaluation note* Diagnosis Right kidney stone- Primary [facility]* Diagnosis Right kidney stone- Primary Right kidney stone- Primary Chronic bilateral low back pain with bilateral sciatica Cyst of left ovary Other and unspecified ovarian cyst Gross hematuria Dysuria- Primary [facility] Diagnosis Right kidney stone Muscle spasm- Primary Spasm of muscle Chronic bilateral low back pain, unspecified whether sciatica present Low back pain, unspecified back pain laterality, unspecified chronicity, unspecified whether sciatica present [facility] Diagnosis Muscle spasm- Primary Spasm of muscle Chronic bilateral low back pain without sciatica Chronic bilateral low back pain with bilateral sciatica Low back pain, unspecified back pain laterality, unspecified chronicity, unspecified whether sciatica present [facility] Diagnosis Neck pain- Primary Cervicalgia [facility] Diagnosis Right kidney stone- Primary Chronic bilateral low back pain with bilateral sciatica Cyst of left ovary Other and unspecified ovarian cyst Gross hematuria [facility] Diagnosis Low back pain, unspecified back pain laterality, unspecified chronicity, unspecified whether sciatica present- Primary [facility] Diagnosis Right kidney stone Irregular menstrual cycle- Primary Cyst of left ovary Other and unspecified ovarian cyst [facility] Diagnosis Right kidney stone Encounter for initial prescription of implantable subdermal contraceptive- Primary [facility] Diagnosis Right kidney stone Muscle spasm- Primary Spasm of muscle Chronic bilateral low back pain, unspecified whether sciatica present [facility] Diagnosis Right kidney stone Gross hematuria- Primary Pre-op testing- Primary Unspecified pre-operative examination Gross hematuria Gross hematuria [facility] Diagnosis Abnormal uterine bleeding (AUB)- Primary [facility]* Diagnosis Feeling of incomplete bladder emptying- Primary Epilepsy, 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CMS-HCC) [facility] Diagnosis Acne vulgaris- Primary Other acne [facility] Diagnosis Seizure-like activity (HCC)- Primary [...] Myopia, bilateral Myopia [facility] Diagnosis ADD (attention deficit disorder) without hyperactivity Attention deficit disorder without mention of hyperactivity documented [facility]* Diagnosis Psychogenic nonepileptic seizure- Primary Migraine without aura and without status migrainosus, not intractable Chronic insomnia Insomnia, unspecified [facility] Diagnosis Psychogenic nonepileptic seizure- Primary Tachycardia Unspecified tachycardia Syncope, unspecified syncope type Migraine without aura and without status migrainosus, not intractable Seizure disorder (HCC) Unspecified epilepsy without mention of intractable epilepsy documented in this encounter [facility]* Diagnosis Seizure-like activity (HCC)- [...] disorder without agoraphobia Hypoglycemia- Primary Hypoglycemia, unspecified Vision changes Unspecified visual disturbance Gastroparesis Abnormal weight loss Loss of weight Mild protein-calorie malnutrition (HCC) Malnutrition of mild degree Emesis, persistent Persistent vomiting [facility] Diagnosis Intractable complex partial epilepsy (HCC) Focal epilepsy with impairment of consciousness, intractable (HCC) Localization-related (focal) (partial) epilepsy and epileptic syndromes with simple partial seizures, with intractable epilepsy Epilepsy, 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HCC) [facility] Diagnosis Supraventricular tachycardia, unspecified Shortness of breath Palpitations Dizziness and giddiness Implantable loop recorder present Family history of hypertrophic cardiomyopathy Never smoked tobacco BMI < 18.5 documented in this encounter [facility] Work Phone: Evaluation note* Diagnosis Psychogenic nonepileptic seizure- Primary Chronic migraine without aura without status migrainosus, not intractable Chronic insomnia Insomnia, unspecified Tremor Abnormal involuntary movements documented in this encounter [facility]* Diagnosis Intractable chronic migraine without aura and without status migrainosus- Primary Chronic migraine without aura without status migrainosus, not intractable Anxiety Anxiety state, unspecified documented in this encounter [facility]* Diagnosis Seizure-like activity (HCC)- [...] type Panic attacks Panic disorder without agoraphobia Gastroparesis- Primary Gastroesophageal reflux disease, unspecified whether esophagitis present Chronic idiopathic constipation Unspecified constipation Dyssynergic defecation Abnormal weight loss Loss of weight [facility] Seizure-like activity (HCC)- Primary [...] type Panic attacks Panic disorder without agoraphobia Gastroparesis- Primary [facility] Diagnosis Seizure-like activity (HCC)- Primary [...] type Panic attacks Panic disorder without agoraphobia PTSD (post-traumatic stress disorder)- Primary Posttraumatic stress disorder Gastroparesis [facility] Diagnosis ADD (attention deficit disorder) without hyperactivity Attention deficit disorder without mention of hyperactivity [facility] Diagnosis Palpitations- Primary Supraventricular tachycardia, unspecified Implantable loop recorder present Family history of hypertrophic cardiomyopathy Shortness of breath Dizziness and giddiness Never smoked tobacco Body mass index (BMI) of 19.0 to 19.9 in adult documented in this encounter [facility] Work Phone: Hospital Discharge instructions Additional Instructions If your symptoms return/worsen or you develop any further concerns or symptoms please see your doctor or return to the emergency department immediately.[facility] Work Phone: Hospital Discharge instructions Additional Instructions Follow-up with primary care doctor Return [facility] ED if develop worsening [facility] Work [facility]: Hospital Discharge instructions Additional Instructions [facility] current [facility] Work Phone: Hospital Discharge instructions [...] of breath, abdominal pain, urinary complaints, nausea, vomiting.[facility] Work Phone: Hospital Discharge instructions Additional Instructions If your symptoms return/worsen or you develop any further concerns or symptoms please see your doctor or return to the emergency department immediately. Please be sure to follow-up with your neurologist.[facility] Work Phone: Hospital Discharge instructions Additional Instructions Continue your medication as prescribed Increase oral fluids Follow-up with your neurologist Return to the ER for uncontrolled seizures seizures lasting longer than 5 minutes fever or any other [facility] Work Phone: Hospital Discharge instructionsAmbulatory Orders* Referral to Endocrinology Time Frame: 04/02/24, Location: None [facility] Work Phone: InstructionsNot on filedocumented in [...] unspecified chronicity, unspecified whether sciatica present Jaja Rice, OUTREACH COORDINATOR-BANKING MANAGEMENT CONSULTING MANAGER [address] [place] [address] [facility] [address] [place] [address] Referral ID Status Reason Start Date Expiration Date Visits Requested Visits Authorized [id number] Pending Review Specialty Services Required 11/15/2023 11/14/2024 1 1 [facility] Consultation (Routine) - Pending Review Specialty Diagnoses / Procedures Referred By Contac t Referred To Contact Obstetrics and Gynecology Diagnoses Cyst of left ovary Enriqueta Tse PA [address] [place] [address] [facility] [address] Referral ID Status Reason Start Date Expiration Date Visits Requested Visits Authorized [id number] Pending Review Specialty Services Required 09/07/2023 09/06/2024 1 1 * Consultation (Routine) - Pending Review Specialty Diagnoses / Procedures Referred By Contac t Referred To Contact Spine Care Diagnoses Chronic bilateral low back pain with bilateral sciatica Enriqueta Tse PA [address] [place] [address] [facility] [address] [place] [id number] Referral ID Status Reason Start Date Expiration Date V isits Requested Visits Authorized [id number] Pending Review 09/07/2023 09/06/2024 1 1 [facility]ative)No reason for referral information availableBar[facility] Work Phone: Reason for visit Narrative* Consultation (Routine) - Closed Specialty Diagnoses / Procedures Referred By Contac t Referred To Contact Neurology Diagnoses Chronic migraine without aura without status migrainosus, not intractable Procedures MD OFFICE/OUTPATIENT NEW HIGH MDM 60 MINUTES Sierra Anna, OIL TANKER CAPTAIN [address], [address] [address] Phone: tel: fax: Lavonne Thomas, OIL TANKER CAPTAIN [address] [address] Phone: tel: fax: Referral ID Status Reason Start Date Expiration Date V isits Requested Visits Authorized [id number] Closed Specialty Services Required 02/06/2025 08/05/2025 1 1 [facility] Summary Purpose Family History No Family History Records Found Relationship Condition Age at Onset Recorded Date/T nain Not Specified No pertinent family history Unknown Advance Directives No Advanced Directives Records Found Advance Directive Response Recorded Date/ Time Advance Directives Yes January 05 1:48pm Documents on File Type Date Recorded Patient Can Marker Expl anation Advance Directive(s) 11/25/2020 10:24 AM [...] Documents on File Type Date Recorded Patient Can Marker Expl anation Advance Directive(s) 11/25/2020 10:24 AM [...] 1pm R11.2 E10.9 November 01, 2024 6:52am Chief Complaint Admit Date SVT February 26, 2025 10:30am SVT February 26, 2025 1:53pm Reason for Referral Specialty Diagnoses / Procedures Referred By Contac t Referred To Contact Neurology Diagnoses Seizure (HCC) Stefanie Ortez MD [address] [place] [address] Caleb Easton MD [address] [place] [address] Referral ID Status Reason Start Date Expiration Date V isits Requested Visits Authorized [id number] Open Specialty Services Required 02/06/2023 08/05/2023 1 [...] (CMS/HCC) Lavonne Thomas NP [address], [place] [address] Referral ID Status Reason Start Date Expiration Date Visits Re quested Visits Authorized [id number] Closed 1 1 Specialty Diagnoses / Procedures Referred By Contac t Referred To Contact Diagnoses Other specified diabetes mellitus with other specified complication, without long-term current use of insulin (HCC) Sensory food aversion Abnormal weight loss Mild protein-calorie malnutrition (HCC) Procedures ENDOCRINOLOGY DIETITIAN VISIT (MNT) MEDICAL NUTRITION ASSMT&IVNTJ INDIV EACH 15 ND MEDICAL NUTRITION ASSMT&IVNTJ INDIV EACH 15 ND MEDICAL NUTRITION ASSMT&IVNTJ INDIV EACH 15 ND MEDICAL NUTRITION ASSMT&IVNTJ INDIV EACH 15 ND Gale Bassett, OUTREACH COORDINATOR.BANKING MANAGEMENT CONSULTING MANAGER [address] [facility] [place] [address] Referral ID Status Reason Start Date Expiration Date Visits Requested Visits Authorized [id number] Authorized PCP Requested Referral 4 04/16/2025 1 1 Specialty Diagnoses / Procedures Referred By Contac t Referred To Contact Ophthalmology Diagnoses Mild protein-calorie malnutrition (HCC) Vision changes Procedures CONSULT TO OPHTHALMOLOGY OFFICE/OUTPATIENT [facility] 60 MINUTES Gale Bassett, OUTREACH COORDINATOR.BANKING MANAGEMENT CONSULTING MANAGER [address] [place] [address] Referral ID Status Reason Start Date Expiration Date Visits Requested Visits Authorized [id number] Authorized PCP Requested Referral 06/18/2025 1 1 Specialty Diagnoses / Procedures Referred By Contac t Referred To Contact Radiology Diagnoses Chronic bilateral low back pain without sciatica Chronic bilateral low back pain with bilateral sciatica Procedures MR lumbar spine without contrast Jaja Rice, OUTREACH COORDINATOR-BANKING MANAGEMENT CONSULTING MANAGER [address] [place] [address] Referral ID Status Reason Start Date Expiration Date V isits Requested Visits Authorized [id number] Pending Review 12/28/2023 12/27/2024 1 1 Specialty Diagnoses / Procedures Referred By Contac t Referred To Contact Rehabilitation Diagnoses Chronic bilateral low back pain with bilateral sciatica Muscle spasm Jaja Rice, OUTREACH COORDINATOR-BANKING MANAGEMENT CONSULTING MANAGER [address] [place] [address] Referral ID Status Reason Start Date Expiration Date Visits Requested Visits Authorized [id number] Pending Review Specialty Services Required 09/20/2023 03/22/2024 1 1 Additional Source Comments INFORMATION SOURCE (unrecogn ized section and content) DATE CREATED AUTHOR 09/02/2018 [facility] DATE CREATED AUTHOR AUTHOR'S ORGANIZ ATION 10/20/2018 [facility] DATE CREATED AUTHOR AUTHOR'S ORGANIZ ATION 03/24/2021 [facility] DATE CREATED AUTHOR AUTHOR'S ORGANIZ ATION 09/16/2021 [facility] DATE CREATED AUTHOR AUTHOR'S ORGANIZ ATION 09/28/2022 [facility] DATE CREATED AUTHOR AUTHOR'S ORGANIZ ATION 02/06/2023 [facility] DATE CREATED AUTHOR AUTHOR'S ORGANIZ ATION 12/10/2023 [facility] DATE CREATED AUTHOR AUTHOR'S ORGANIZ ATION 05/01/2024 [facility] DATE CREATED AUTHOR AUTHOR'S ORGANIZ ATION 07/07/2024 [facility] DATE CREATED AUTHOR AUTHOR'S ORGANIZ ATION 08/18/2024 [facility] DATE CREATED AUTHOR AUTHOR'S ORGANIZ ATION 09/05/2024 [facility] DATE CREATED AUTHOR AUTHOR'S ORGANIZ ATION 11/22/[address] [facility] DATE CREATED AUTHOR AUTHOR'S ORGANIZ ATION 02/08/2025 [facility] DATE CREATED AUTHOR AUTHOR'S ORGANIZ ATION 02/18/2025 [facility] DATE CREATED AUTHOR AUTHOR'S ORGANIZ ATION 02/27/2025 [facility] DATE CREATED AUTHOR AUTHOR'S ORGANIZ ATION 02/27/2025 [facility] DATE CREATED AUTHOR AUTHOR'S ORGANIZ ATION 03/01/2025 [facility] DATE CREATED AUTHOR AUTHOR'S ORGANIZ ATION 03/09/2025 [facility] Stitch Marker Teams (unrecognized sec tion and content) Team Status: Active Member Role Status Dates Kavin French DO Primary Care Provider Active Team Status: Active Member Role Status Dates NON STAFF Primary Care Provider Active Start: August 15, 2024 Won Rahman DO Attending Provider Active Sta rt: August 15, 2024 Team Status: Inactive Member Role Status Dates NON STAFF Primary Care Provider Active Start: September 27, 2024 End: September 27, 2024 Tere Solis DO Attending Provider Active St art: September 27, 2024 End: September 27, 2024 Team Status: Inactive Member Role Status Dates Tere Solis DO Attending Provider Active St art: October 15, 2024 End: October 15, 2024 Kavin Fernch DO Primary Care Provider Active Start: October 15, 2024 End: October 15, 2024 Team Status: Active Member Role Status Dates Tere Solis DO Attending Provider, Other Provider Active Start: October 15, 2024 Kavin French DO Primary Care Provider Active Start: October 15, [...] April 02, 2024 End: April 02, 2024 Tere Solis , DO Attending Provider Active St art: April 02, 2024 End: April 02, 2024 Lavonne Thomas , OUTREACH COORDINATOR OIL TANKER CAPTAIN-C Referring Provider Active Start: April 02, 2024 End: April 02, 2024 Team Status: Inactive Member Role Status Dates Tommy Bowen , DO Emergency Provider Active Kavin French , DO Primary Care Provider Active Team Status: Inactive Member Role Status Dates Kavin French , DO Primary Care Provider Active Bobby Rojas , DO Emergency Provider Active Team Status: Inactive Member Role Status Dates Kavin French , DO Primary Care Provider Active Roberto Whittaker , DO Emergency Provider Active Team Status: Inactive Member Role Status Dates Kavin French , DO Primary Care Provider Active Som Fiore , DO Emergency Provider Active Team Status: Inactive Member Role Status Dates Kavin French , DO Primary Care Provider Active Los Mcnally , DO Emergency Provider Active Team Status: Inactive Member Role Status Kavin French , DO Primary Care Provider Active Pipe Jose MD Emergency Provider Active Lather Apprentice Relationship Specialty Start Date End Date Kavin French Sr. [address] [place] [address] PCP - General Family Medicine 03/29/19 Team Status: Inactive Member Role Status Dates Som Fiore , DO Emergency Provider Active Kavin French , DO Primary Care Provider Active Brandon Verde DO RES Active Team Status: Inactive Member Role Status Dates Los Mcnally , DO Emergency Provider Active Kavin French , DO Primary Care Provider Active Aman Cortes , DO RES Active Team Status: Inactive Member Role Status Dates Kavin French , DO Primary Care Provider Active Attila Nelson , DO Emergency Provider Active Team Status: Inactive Member Role Status Dates Roberto Whittaker , DO Emergency Provider Active Kavin French , DO Primary Care Provider Active Team Status: Inactive Member Role Status Dates Shanelle Bowen PA-C Emergency Provider Active Kavin French , DO Primary Care Provider Active Team Status: Inactive Member Role Status Dates Kavin French , DO Primary Care Provider Active Federica Wolfe , [facility] Emergency Provider Active Lather Apprentice Relationship Specialty Start Date End Date Gillian Kavin Krystian Sr., DO [address] [place] [address] PCP - General Family Medicine 07/17/17 Team Status: Inactive Member Role Status Dates Kavin French DO Primary Care Provider Active Margarita Gallo MD RES Active Milton Rivera PA-C Emergency Provider Active Team Status: Inactive Member Role Status Dates Pipe Jose MD Emergency Provider Active NON STAFF Primary Care Provider Active Team Status: Inactive Member Role Status Dates Som Fiore DO Emergency Provider Active NON STAFF Primary Care Provider Active Lather Apprentice Relationship Specialty Start Date End Date Kavin French MD [address] [place] [address] PCP - General Family Medicine 02/11/23 Lather Apprentice Relationship Specialty Start Date End Date Kavin French Sr., DO [address] [place] [address] PCP - General Family Medicine 07/17/17 Lather Apprentice Relationship Specialty Start Date End Date Kavin French Sr., DO [address] [place] [address] PCP - General Family Medicine 07/17/17 Lather Apprentice Relationship Specialty Start Date End Date Kavin French Sr., DO PCP - General Family Medicine 03/29/19 Lather Apprentice Relationship Specialty Start Date End Date Kavin French Sr., DO PCP - General Family Medicine 03/29/19 Lather Apprentice Relationship Specialty Start Date End Date Kavin French MD [address] [place] [address] PCP - General Family Medicine 02/11/23 Lavonne Thomas, OIL TANKER CAPTAIN [address] [facility] [address] [address] PCP - [facility] 12/26/23 Lather Apprentice Relationship Specialty Start Date End Date Kavin French MD [address] [place] [address] PCP - General Family Medicine 02/11/23 Lavonne Thomas NP [address] [facility] [address] [place] [address] PCP - [facility] 12/26/23 Lather Apprentice Relationship Specialty Start Date End Date Kavin French Sr., DO PCP - General Family [facility] 03/29/19 Lather Apprentice Relationship Specialty Start Date End Date Kavin French MD [address] [place] [address] PCP - General [facility] 02/11/23 Lavonne Thomas NP [address] [facility] [address] [place] [address] PCP - [facility] 12/26/23 Lather Apprentice Relationship Specialty Start Date End Date Kavin French MD [address] [place] [address] PCP - General Family [facility] 02/11/23 Lavonne Thomas NP [address] [facility] [address] [place] [address] PCP - [facility] 12/26/23 Lather Apprentice Relationship Specialty Start Date End Date Kavin French MD [address] [place] [address] PCP - General Family Medicine 02/11/23 Lavonne Thomas NP [address] [place] [address], [place] [address] PCP - [facility] 12/26/23 Lather Apprentice Relationship Specialty Start Date End Date Kavin French MD [address] [place] [facility] [place] [address] PCP - General Family [facility] 02/11/23 Lavonne Thomas NP [address] [place] [address], [place] [address] PCP - [facility] 12/26/23 Lather Apprentice Relationship Specialty Start Date End Date Kavin French MD [address] [place] [facility] [place] [address] PCP - General [facility] 02/11/23 Lavonne Thomas OIL TANKER CAPTAIN [address] [place] [address], [place] [address] PCP - [facility] 12/26/23 Lather Apprentice Relationship Specialty Start Date End Date Kavin French MD [address] [place] [facility] [place] [address] PCP - General Family [facility] 02/11/23 Lavonne Thomas NP [address] [place] [address], [place] [address] PCP - [facility] 12/26/23 Lather Apprentice Relationship Specialty Start Date End Date Kavin French MD [address] [place] [address] PCP - General [facility] 02/11/23 Lavonne Thomas, OIL TANKER CAPTAIN [address] [facility] [address] [place] [address], [place] [address] PCP - [facility] 12/26/23 Lather Apprentice Relationship Specialty Start Date End Date Kavin French MD [address] [place] [address] [facility] 02/11/23 Lavonne Thomas, OIL TANKER CAPTAIN [address] [facility] [address] [place] [address] PCP - [facility] 12/26/23 Lather Apprentice Relationship Specialty Start Date End Date Kavin French Sr., DO PCP - General [facility] 03/29/19 Lather Apprentice Relationship Specialty Start Date End Date Kavin French Sr., DO PCP - General Family Medicine 03/29/19 Lather Apprentice Relationship Specialty Start Date End Date Kavin French Sr., DO PCP - General Family Medicine 03/29/19 Lather Apprentice Relationship Specialty Start Date End Date Kavin French DO [address] [place] [id number] [facility] 01/06/24 Lather Apprentice Relationship Specialty Start Date End Date Kavin French MD [address] [facility] [place] [address] PCP - General Family Medicine 02/11/23 Lavonne Thomas, SILVIA [address] [place] [address] PCP - [facility] 12/26/23 Lather Apprentice Relationship Specialty Start Date End Date Kavin French MD [address] [place] [address] PCP - General Family [facility] 02/11/23 Lavonne Thomas OIL TANKER CAPTAIN [address] [place] [address] PCP - [facility] 12/26/23 Lather Apprentice Relationship Specialty Start Date End Date Kavin French DO [address] [place] [id number] [facility] 01/06/24 Lather Apprentice Relationship Specialty Start Date End Date Kavin French Sr., DO PCP - General Family Medicine 03/29/19 Lather Apprentice Relationship Specialty Start Date End Date Kavin French MD [address] [place] [address] PCP - General Family Medicine 02/11/23 Lavonne Thomas OIL TANKER CAPTAIN [address] R[address] [place] [address] PCP - [facility] 12/26/23 Lather Apprentice Relationship Specialty Start Date End Date Kavin French MD [address] [place] [address] PCP - General Family [facility] 02/11/23 Lavonne Thomas, SILVIA [address] [facility] [address] R[address]iro [address] [place] [address], [place] [address] PCP - [facility] 12/26/23 Lather Apprentice Relationship Specialty Start Date End Date Kavin French MD [address] [place] [address] PCP - General [facility] 02/11/23 Lavonne Thomas, OIL TANKER CAPTAIN [address] [facility] [address] Ribeiro [address] [place] [address] PCP - [facility] 12/26/23 Lather Apprentice Relationship Specialty Start Date End Date Kavin French DO [address] [place] [id number] [facility] 03/12/20 Lather Apprentice Relationship Specialty Start Date End Date Kavin French DO [address] [place] [address] 318[address] PCP - [facility] Family [facility] 03/12/20 Lather Apprentice Relationship Specialty Start Date End Date Kavin French DO [address] [place] [address] 135[address] PCP - General Family Medicine 01/06/24 Lather Apprentice Relationship Specialty Start Date End Date Kavin French DO [address] [place] [address] [id number] PCP - General Family [facility] 03/12/20 Lather Apprentice Relationship Specialty Start Date End Date Kavin French DO [address] [place] [address] PCP - General Family Medicine 03/12/20 Lather Apprentice Relationship Specialty Start Date End Date Kavin French DO [address] [place] [address] PCP - General Family Medicine 03/12/20 Lather Apprentice Relationship Specialty Start Date End Date Kavin French DO [address] [place] [address] 50[address] PCP - General Family Medicine 03/12/20 Lather Apprentice Relationship Specialty Start Date End Date Kavin French DO [address] [place] [address] 66[address] PCP - General Family Medicine 03/12/20 Lather Apprentice Relationship Specialty Start Date End Date Kavin French DO [address] [place] [address] 31894 PCP - General Family Medicine 03/12/20 Lather Apprentice Relationship Specialty Start Date End Date Kavin French DO [address] [place] [address] [id number] PCP - General Family Medicine 03/12/20 Lather Apprentice Relationship Specialty Start Date End Date Kavin French DO [address] [place] [address] 823[address] PCP - General Family Medicine 03/12/20 Lather Apprentice Relationship Specialty Start Date End Date Kavin French DO [address] [place] [address] 539[address] PCP - General Family Medicine 03/12/20 Lather Apprentice Relationship Specialty Start Date End Date Kavin French DO [address] [place] [address] 276[address] PCP - General Family Medicine 03/12/20 Lather Apprentice Relationship Specialty Start Date End Date Kavin French DO [address] [place] [address] 27[address] PCP - General Family Medicine 03/12/20 Lather Apprentice Relationship Specialty Start Date End Date Kavin French DO [address] [place] [address] 8[address] PCP - General Family Medicine 03/12/20 Lather Apprentice Relationship Specialty Start Date End Date Kavin French DO [address] [place] [address] [id number] PCP - General Family Medicine 03/12/20 Lather Apprentice Relationship Specialty Start Date End Date Kavin French MD [address] [place] [address] PCP - General Family Medicine 02/11/23 Lavonne Thomas NP 5319 [facility] [address] [address] PCP - [facility] 12/26/23 Lather Apprentice Relationship Specialty Start Date End Date Kavin French DO [facility] [place] [address] PCP - General Family Medicine 08/16/24 Lather Apprentice Relationship Specialty Start Date End Date Kavin French DO [facility] [place] [address] PCP - General Family Medicine 08/16/24 Lather Apprentice Relationship Specialty Start Date End Date Kavin French MD [address] [place] [address] PCP - General Family Medicine 02/11/23 Lavonne Thomas, OIL TANKER CAPTAIN 53[address] [facility] [address] [address] PCP - [facility] 12/26/23 Team Status: Active Member Role Status Dates NON STAFF Primary Care Provider Active Start: July 08, 2024 Won Rahman DO Attending Provider Active Sta rt: July 08, 2024 Lather Apprentice Relationship Specialty Start Date End Date Kavin French Sr., PCP - General Family Medicine 03/29/19 Lather Apprentice Relationship Specialty Start Date End Date Kavin French DO [address] [place] [address] PCP - General Family Medicine 08/16/24 Lather Apprentice Relationship Specialty Start Date End Date Kavin French DO [address] [place] [address] PCP - General Family Medicine 08/16/24 Team Status: Inactive Member Role Status Dates Kavin French DO Primary Care Provider Active Start: November 01, 2024 End: November 01, 2024 Tere Solis DO Attending Provider Active St art: November 01, 2024 End: November 01, 2024 Lather Apprentice Relationship Specialty Start Date End Date Kaivn French MD [address] [place] [address] PCP - General Family Medicine 02/11/23 Lavonne Thomas NP [address] [facility] [address] Ribeiro [address] [place] [address], [place] [address] PCP - [facility] 12/26/23 Lather Apprentice Relationship Specialty Start Date End Date Kavin French MD [address] [place] [address] [facility] 02/11/23 Lavonne Thomas NP [address] [facility] [address] R[address]iro [address] [place] [address], [place] [address] [facility] - [facility] 12/26/23 Lather Apprentice Relationship Specialty Start Date End Date Kavin French MD [address] [place] [address] [facility]CP [facility] 02/11/23 Lavonne Thomas NP [address] [facility] [address] Ribeiro [address] [place] [address], [place] [address] [facility] - [facility] 12/26/23 Lather Apprentice Relationship Specialty Start Date End Date Kavin French Sr., DO PCP - General Family Medicine 03/29/19 Lather Apprentice Relationship Specialty Start Date End Date Kavin French Sr., DO PCP - General Family Medicine 03/29/19 Lather Apprentice Relationship Specialty Start Date End Date Kavin French Sr., DO PCP - General Family Medicine 03/29/19 Lather Apprentice Relationship Specialty Start Date End Date Kavin French DO [address] [place] [address] PCP - General Family Medicine 01/09/25 Lather Apprentice Relationship Specialty Start Date End Date Kavin French MD PCP - General Family Medicine 02/11/23 Lavonne Thomas, SILVIA [address] [place] [address] PCP - [facility] 12/26/23 Lather Apprentice Relationship Specialty Start Date End Date Kavin French MD PCP - General Family Medicine 02/11/23 Lavonne Thomas, OIL TANKER CAPTAIN [address] [place] [address] PCP - [facility] 12/26/23 Lather Apprentice Relationship Specialty Start Date End Date Kavin French Sr., DO PCP - General Family Medicine 03/29/19 Lather Apprentice Relationship Specialty Start Date End Date Kavin French MD PCP - General [facility] 02/11/23 Lavonne Thomas OIL TANKER CAPTAIN [address] [place] [address] PCP - [facility] 12/26/23 Lather Apprentice Relationship Specialty Start Date End Date Kavin French Sr., DO PCP - General Family Medicine 03/29/[address] [place] [address] Registered Dietitian Nutrition 02/19/25 Lather Apprentice Relationship Specialty Start Date End Date Kavin French Sr., DO PCP - General Family Medicine 03/29/[address], [place] [address] Registered Dietitian Nutrition 02/19/25 Team Status: Active Member Role Status Dates Kavin French DO Primary Care Provider Active Start: February 26, 2025 Kings Robles MD Other Provider Active St art: February 26, 2025 Adam Patel MD Attending Provider Active Start: February 26, 2025 Team Status: Inactive Member Role Status Dates Kavin French DO Primary Care Provider Active Start: February 26, 2025 End: February 26, 2025 Kings Robles MD Attending Provider Active Start: February 26, 2025 End: February 26, 2025 Lather Apprentice Relationship Specialty Start Date End Date Kavin French Sr., DO PCP - General Family Medicine 03/29/[address] [place] [address] Registered Dietitian Nutrition 02/19/25 Lather Apprentice Relationship Specialty Start Date End Date Kavin French MD PCP - General Family Medicine 02/11/23 Lavonne Thomas OIL TANKER CAPTAIN 53[address] [facility] [address] [address] PCP - [facility] 12/26/23 Lather Apprentice Relationship Specialty Start Date End Date Kavin French DO [address] [place] [address] PCP - General Family Medicine 01/09/25 Goals (unrecognized section and content) Goals may [...] encounterGoals may be documented in an alternate sectionGoals may be documented in an alternate section Source Comments (unrecognize d section and content) In the event this informatio n is protected by the Federal Confidentiality of Alcohol and Drug Abuse Patient Records regulations: The Federal rules restrict any use of the information to criminally investigate or prosecute any alcohol or drug abuse patient.[facility] the event this information is protected by the Federal Confidentiality of Alcohol and Drug Abuse Patient Records regulations: The Federal rules restrict any use of the information to criminally investigate or prosecute any alcohol or drug abuse patient.[facility] CenterIn the event this information is protected by the Federal Confidentiality of Alcohol and Drug Abuse Patient Records regulations: The Federal rules restrict any use of the information to criminally investigate or prosecute any alcohol or drug abuse patient.[facility] Center[facility] the event this information is protected by the Federal Confidentiality of Alcohol and Drug Abuse Patient Records regulations: The Federal rules restrict any use of the information to criminally investigate or prosecute any alcohol or drug abuse patient.[facility] CenterIn the event this information is protected by the Federal Confidentiality of Alcohol and Drug Abuse Patient Records regulations: The Federal rules restrict any use of the information to criminally investigate or prosecute any alcohol or drug abuse patient.[facility] CenterIn the event this information is protected by the Federal Confidentiality of Alcohol and Drug Abuse Patient Records regulations: The Federal rules restrict any use of the information to criminally investigate or prosecute any alcohol or drug abuse patient.[facility] CenterIn the event this information is protected by the Federal Confidentiality of Alcohol and Drug Abuse Patient Records regulations: The Federal rules restrict any use of the information to criminally investigate or prosecute any alcohol or drug abuse patient.[facility] CenterIn the event this information is protected by the Federal Confidentiality of Alcohol and Drug Abuse Patient Records regulations: The Federal rules restrict any use of the information to criminally investigate or prosecute any alcohol or drug abuse patient.[facility] CenterIn the event this information is protected by the Federal Confidentiality of Alcohol and Drug Abuse Patient Records regulations: The Federal rules restrict any use of the information to criminally investigate or prosecute any alcohol or drug abuse patient.[facility] CenterIn the event this information is protected by the Federal Confidentiality of Alcohol and Drug Abuse Patient Records regulations: The Federal rules restrict any use of the information to criminally investigate or prosecute any alcohol or drug abuse patient.[facility] CenterIn the event this information is protected by the Federal Confidentiality of Alcohol and Drug Abuse Patient Records regulations: The Federal rules restrict any use of the information to criminally investigate or prosecute any alcohol or drug abuse patient.[facility] CenterIn the event this information is protected by the Federal Confidentiality of Alcohol and Drug Abuse Patient Records regulations: The Federal rules restrict any use of the information to criminally investigate or prosecute any alcohol or drug abuse patient.[facility] CenterIn the event this information is protected by the Federal Confidentiality of Alcohol and Drug Abuse Patient Records regulations: The Federal rules restrict any use of the information to criminally investigate or prosecute any alcohol or drug abuse patient.[facility] CenterIn the event this information is protected by the Federal Confidentiality of Alcohol and Drug Abuse Patient Records regulations: The Federal rules restrict any use of the information to criminally investigate or prosecute any alcohol or drug abuse patient.[facility] CenterIn the event this information is protected by the Federal Confidentiality of Alcohol and Drug Abuse Patient Records regulations: The Federal rules restrict any use of the information to criminally investigate or prosecute any alcohol or drug abuse patient.[facility] CenterIn the event this information is protected by the Federal Confidentiality of Alcohol and Drug Abuse Patient Records regulations: The Federal rules restrict any use of the information to criminally investigate or prosecute any alcohol or drug abuse patient.[facility] CenterIn the event this information is protected by the Federal Confidentiality of Alcohol and Drug Abuse Patient Records regulations: The Federal rules restrict any use of the information to criminally investigate or prosecute any alcohol or drug abuse patient.[facility] CenterIn the event this information is protected by the Federal Confidentiality of Alcohol and Drug Abuse Patient Records regulations: The Federal rules restrict any use of the information to criminally investigate or prosecute any alcohol or drug abuse patient.[facility] Reason for Visit (unrecogniz ed section and content) Reason Comments Seizures Pt has hx of epileps y, pt has had 14 seizures today Reason Comments Seizures Hx of was just admit manjula to [facility] for seizures sent to [facility], had 2 seizures there, on 3 different meds took all meds today Head Injury Hit head on left reina e, Reason Comments Diabetes Reason Comments Follow-up Reason Comments Question dexcom 7 Reason Comments Med Refill Reason Comments Low Blood Sugar Reason Comments Refill Request Reason Onset Date Comments Med Refill 07/03/2024 Reason Onset Date Comments Other 07/08/2024 yardage caller Reason Comments Medical Nutrition Therapy Hypoglycemia a nd unintentional weight loss Specialty Diagnoses / Procedures Referred By Carlos A t Referred To Contact Diagnoses Other specified diabetes mellitus with other specified complication, without long-term current use of insulin (HCC) Sensory food aversion Abnormal weight loss Mild protein-calorie malnutrition (HCC) Procedures ENDOCRINOLOGY DIETITIAN VISIT (MNT) MEDICAL NUTRITION ASSMT&IVNTJ INDIV EACH 15 ND MEDICAL NUTRITION ASSMT&IVNTJ INDIV EACH 15 ND MEDICAL NUTRITION ASSMT&IVNTJ INDIV EACH 15 ND MEDICAL NUTRITION ASSMT&IVNTJ INDIV EACH 15 ND Gale Bassett, ROSA.[address] [address] Referral ID Status Reason Start Date Expiration Date V isits Requested Visits Authorized [id number] Closed PCP Requested Referral 04/16/2024 04/16/2025 1 1 Reason Onset Date Comments Med Refill 07/24/2024 Reason Comments Acne Reason Comments Follow-up Lumbar/thoracic MRI follow up Reason Comments Follow-up Pt is here for consu lt on ovarian cyst. Specialty Diagnoses / Procedures Referred By Carlos A t Referred To Contact Obstetrics and Gynecology Diagnoses Cyst of left ovary Enriqueta Tse PA [facility] [place] [address] [facility] [address] [place] [address] Referral ID Status Reason Start Date Expiration Date V isits Requested Visits Authorized [id number] Closed Specialty Services Required 09/07/2023 09/06/2024 1 1 Reason Comments Contraception Reason Comments Consult New patient , lumbar , x-rays Specialty Diagnoses / Procedures Referred By Contac t Referred To Contact Spine Care Diagnoses Chronic bilateral low back pain with bilateral sciatica Enriqueta Tse PA [address] [place] [address] [facility] [address] [place] [address] [address] [place] [address] Referral ID Status Reason Start Date Expiration Date V isits Requested Visits Authorized [id number] Pending Review 09/07/2023 09/06/2024 1 1 Reason Comments Menstrual Problem Irregular spotting s vianey Nov. Pt has Nexplanon Reason Comments Bladder Problem Pt is having the fee ling they are not emptying all the way Reason Comments Comprehensive Health Assessment Type 2 s vianey age 20LEE 3 yrs ago Specialty Diagnoses / Procedures Referred By Josephac t Referred To Contact Ophthalmology Diagnoses Mild protein-calorie malnutrition (HCC) Vision changes Procedures CONSULT TO OPHTHALMOLOGY OFFICE/OUTPATIENT NEW HIGH MDM 60 MINUTES Gale Bassett, OUTREACH COORDINATOR.BANKING MANAGEMENT CONSULTING MANAGER [address] [place] [address] Phone: tel: fax: Referral ID Status Reason Start Date Expiration Date V isits Requested Visits Authorized [id number] Closed PCP Requested Referral 06/18/2024 06/18/2025 1 1 Reason Onset Date Comments Sleep Lab 10/12/2024 PSG Reason Comments Consult Reason Onset Date Comments Med Refill 01/07/2025 Reason Comments Ambulatory Social Work Reason Comments New Patient Visit Graziani-Tachycardia Specialty Diagnoses / Procedures Referred By Contac t Referred To Contact Diagnoses Supraventricular tachycardia, unspecified Palpitations Procedures ECG 12 Lead Kings Robles MD [address] [facility] [address] [address] Phone: tel: fax: Referral ID Status Reason Start Date Expiration Date V isits Requested Visits Authorized [id number] Authorized 01/23/2025 01/23/2026 1 1 Reason Comments Medication Problem Blood-Glucose Sensor (FREESTYLE GOYO 3 PLUS SENSOR) efrain Reason Comments Infection Concern Reason Comments Gastroparesis Reason Comments Nutrition Assessment Reason Comments Gastroparesis Specialty Diagnoses / Procedures Referred By Contac t Referred To Contact Psychology / PSYCHOLOGY Diagnoses Gastroparesis New gp consult Procedures PSYCHOTHERAPY 45 MINUTES WITH PATIENT [facility] Tere Solis DO [address] [address] Phone: tel: fax: Tammy Palacios, BRETT [address] [place] [address] Phone: tel: fax: Referral ID Status Reason Start Date Expiration Date V isits Requested Visits Authorized [id number] Authorized 11/25/2024 06/26/2025 99 99 Reason Onset Date Comments Med Refill 02/28/2025 Reason Comments Follow-up 2 month follow up SV T Specialty Diagnoses / Procedures Referred By Contac t Referred To Contact Cardiology Diagnoses Supraventricular tachycardia, unspecified Procedures Follow Up In Cardiology Kings Robles MD [address] [place] [address] 2, [address] [address] Phone: tel: fax: Kings Robles MD [address] [place] [address] 2, [address] [address] Phone: tel: fax: Referral ID Status Reason Start Date Expiration Date V isits Requested Visits Authorized [id number] Authorized 01/23/2025 01/23/2026 1 1 Ordered Prescriptions (unrec ognized section and content) [...] 1,000 mg, IntraVENous, ONCE, 1 dose, On Mio 02/06/23 at 1715 1716 (New Bag - Prov ider: Jace Andrade RN)1833 (Stopped - Provider: Ama Power RN) Scheduled Medication Order 11/29/2023 11/30/2023 12/01/2023 ondansetron (ZOFRAN) injection 4 mg (COMPLETED) 4 mg, IntraVENous, ONCE, 1 dose, On Ladan 12/01/23 at 1700 170 (Given - Provid er: Aleksander Henao RN) [...] with Normal Saline before and after administration. 170 (New Bag - Prov ider: Aleksander Henao RN)180 (Stopped - Provider: Aleksander Henao RN) sodium [...] BE BASED ON THE PRIMARY CLINICAL RECORDS. [facility] [employer] [facility]. provides no warranty or guarantee of the accuracy or completeness of information in this document.
[2025-03-09 14:36] LABS: Hematocrit 42.0 % (36.0-48.0); Hemoglobin 14.5 g/dL (12.0-16.0); Immature Granulocytes Abs Auto 0.03 10^3/uL (0.00-0.03); Immature Granulocytes Pct Auto 0.3 % (0.0-0.5); Lymphocytes Absolute Auto 2.5 10^3/uL (1.2-3.8); Mean Corpuscular HGB Conc 34.5 g/dL (29.9-35.2); Mean Corpuscular Hemoglobin 30.7 pg (26.7-34.0); Mean Corpuscular Volume 89.0 fL (81.0-99.0); Platelet Count 252 10^3/uL (150-450); Red Blood Count 4.72 10^6/uL (4.20-5.40); White Blood Count 10.9 10^3/uL (4.0-11.0)
[2025-03-09 14:52] LABS: Alanine Aminotransferase 15 U/L (14-59); Albumin Globulin Ratio 1.3; Albumin Level 4.4 g/dL (3.4-5.0); Alkaline Phosphatase 78 U/L (46-116); Anion Gap 18.9; Aspartate Amino Transferase 19 U/L (15-37); Blood Urea Nitrogen 9.0 mg/dL (7.0-18.0); Calcium 9.3 mg/dL (8.5-10.1); Carbon Dioxide 23.6 mmol/L (21.0-32.0); Chloride 104 mmol/L (98-107); Estimated GFR (African America >60 (>=60 mL/min/1.73m^2); Estimated GFR (Non-African Ame >60 (>=60 mL/min/1.73m^2); Globulin 3.5 g/dL; Glucose 97 mg/dL (74-106); Magnesium 1.9 mg/dL (1.8-2.4); Potassium 3.5 mmol/L (3.5-5.1); Sodium 143 mmol/L (136-145); Total Protein 7.9 g/dL (6.4-8.2)
[2025-03-09] MEDS: DIAZEPAM 10 MG/2 ML SYRINGE 5 MG IV (15:11)
[2025-03-09] MEDS: PHENYTOIN SODIUM IV (15:20)
[2025-03-09] MEDS: SODIUM CHLORIDE 0.9% IV (15:20)
--- NOTE | 2025-03-09 15:24 | ED.SEIZURE1 ---
HPI - Seizure General Chief Complaint: Seizure Stated Complaint: SEIZURE Time Seen by Provider: 03/09/25 13:52 Source: patient Mode of arrival: ambulance History of Present Illness HPI Narrative: The patient is a 24-year-old transgender male with any females presenting to the ER with a recurring seizure since 8 AM this morning, patient sustained an injury to the right side of the face paula, and this happened Tuesday when he had an injury to the right side of the face after that he started having vomiting and headache, this morning he had 2 seizures when he was with his friends, by the time the patient came to the ER he was not postictal The patient did not have any incontinence of urine or stool and no tongue biting Seizure History: Yes Place: outdoors Related Data Home Medications ?Medication ?Instructions ?Recorded ?Confirmed clobazam 10 mg tablet 10 mg PO .qhs 08/23/23 03/09/25 midazolam 5 mg/spray (0.1 mL) 1 spray intranasal PRN PRN FOR 08/24/23 03/09/25 nasal spray (Nayzilam) SEIZURES metoprolol succinate 25 mg 25 mg PO DAILY 01/28/24 03/09/25 tablet,extended release 24 hr dexmethylphenidate 5 mg 10 mg PO DAILY 07/07/24 03/09/25 capsule,extended release [id number] lamotrigine 200 mg tablet 200 mg PO Q12H 07/07/24 03/09/25 brivaracetam 100 mg tablet 100 mg PO BID 07/08/24 03/09/25 (Briviact) azelaic acid 15 % topical gel 1 applic topical DAILY 08/14/24 03/09/25 ondansetron HCl 4 mg tablet 4 mg PO Q8H PRN nausea and vomiting 08/14/24 03/09/25 zonisamide 25 mg capsule 25 mg PO .QHS 01/09/25 03/09/25 dexmethylphenidate 10 mg tablet 10 mg PO DAILY 03/09/25 03/09/25 (Focalin) fludrocortisone 0.1 mg tablet 0.1 mg PO DAILY 03/09/25 03/09/25 Previous Rx's ?Medication ?Instructions ?Recorded promethazine 25 mg tablet 25 mg PO TID PRN nausea and 12/29/24 vomiting 2 days #6 tabs Allergies Allergy/AdvReac Type Severity Reaction Status Date / Time codeine Allergy Unknown Rash Verified 03/09/25 13:43 topiramate (From Topamax) Allergy resp Verified 03/09/25 13:43 failure Review of Systems ROS Status of ROS 10 or more systems reviewed and unremarkable except as noted in history and below [facility] Social History Smoking status: Current every day smoker Little interest or pleasure in doing things: not at all Feeling down, depressed, or hopeless: not at all Exam Narrative Exam Narrative: Nurses notes and vital signs reviewed and patient is not hypoxic. General: Well-appearing and in no apparent distress. Skin: Warm, dry, no pallor noted. No rash. Head: Normocephalic, small contusion just above the right eye brow no tenderness on palpation Neck: Supple, non-tender. Eye: Pupils are equal, round and EOMI. No scleral icterus. Ears, Nose, Mouth, and Throat: TM are clear, no nasal mucosal hypertrophy. Oral mucosa is moist, no posterior oropharynx erythema, uvula is mid-line Cardiovascular: Regular Rate and Rhythm without murmur, gallop or rub. Respiratory: No accessory muscle use or respiratory distress. Lungs are clear to auscultation, no wheezing, rales or rhonchi Chest Wall: no tenderness Back: No midline thoracic or lumbar vertebral tenderness. No CVA tenderness Musculoskeletal: normal ROM, no calf or popliteal tenderness, no lower extremity edema/swelling GI: Abdomen is soft, non-distended. Normal bowel sounds. No masses appreciated. No tenderness to palpation. No rebound, guarding, or rigidity noted. Neurological: A&O x4. No cranial nerve dysfunction observed. No truncal ataxia. Moves all extremities. Sensation intact. The patient noted that he have a weak handgrip bilaterally as well as weak ankle extension and flexion Psychiatric: Cooperative and interactive. Normal mood and affect. Constitutional Vital Signs, click to edit/add: Last Vital Signs Temp 97.5 F L 03/09/25 13:46 Pulse 107 H 03/09/25 15:20 Resp 25 H 03/09/25 15:20 BP 110/62 03/09/25 15:19 Pulse Ox 97 03/09/25 15:20 O2 Del Method Room Air 03/09/25 13:46 Course Vital Signs Vital signs: Vital Signs Blood Pressure 107/88 03/09/25 13:42 Temperature 97.5 F L 03/09/25 13:46 Pulse Rate 107 H 03/09/25 15:20 Respiratory Rate 25 H 03/09/25 15:20 Blood Pressure 110/62 03/09/25 15:19 Pulse Oximetry 97 03/09/25 15:20 Oxygen Delivery Method Room Air 03/09/25 13:46 MDM - Seizure MDM Narrative Medical decision making narrative: The patient has been compliant with his medication EKG showing sinus rhythm with a heart rate of [address] elevation or depression CBC chemistry showed no acute pathology Within an hour on presentation the patient mentioned that he was feeling that he is going to have another seizure. And then he had his heart rate at 140 and tonic and clonic seizure was observed in the ER no tongue biting no frothing at the mouth The patient was provided with Valium for seizure control and the patient was postictal for 20 minutes after which she is back to normal still having bilateral upper and lower extremity handgrip weakness and ankle weakness It was noted that the patient had a CT head that is pending at the moment as well as CT of the cervical spine due to the trauma Patient was loaded with Dilantin and the patient also had his case discussed with teleneurology recommended the patient to be transferred to the ER in [facility] I spoke with , who accepted the patient Also as per the recommendation of the patient to bring his medication of Briviact from home meanwhile we can convert his dose from 100 mg twice daily to 1000 mg twice daily of Keppra Patient informed and his father will bring the medication CT head as well as CT cervical spine showed no acute pathology Lab Data Labs: Lab Results 03/09/25 Range/Units 14:27 WBC 10.9 (4.0-11.0) 10^3/uL RBC 4.72 (4.20-5.40) 10^6/uL Hgb 14.5 (12.0-16.0) g/dL Hct 42.0 (36.0-48.0) % MCV 89.0 (81.0-99.0) fL MCH 30.7 (26.7-34.0) pg MCHC 34.5 (29.9-35.2) g/dL RDW 12.0 (11.0-15.0) % Plt Count 252 (150-450) 10^3/uL MPV 9.8 (9.5-13.5) fL Neut % (Auto) 68.0 (43.0-75.0) % Lymph % (Auto) 23.2 (20.5-60.0) % Bradford % (Auto) 7.9 (1.7-12.0) % Eos % (Auto) 0.2 L (0.9-7.0) % Baso % (Auto) 0.4 (0.2-2.0) % Neut # (Auto) 7.4 H (1.4-6.5) 10^3/uL Lymph # (Auto) 2.5 (1.2-3.8) 10^3/uL Bradford # (Auto) 0.9 H (0.3-0.8) 10^3/uL Eos # (Auto) 0.0 (0.0-0.7) 10^3/uL Baso # (Auto) 0.0 (0.0-0.1) 10^3/uL Abs Immat Gran (auto) 0.03 (0.00-0.03) 10^3/uL Imm/Tot Granulo (auto) 0.3 (0.0-0.5) % Sodium 143 (136-145) mmol/L Potassium 3.5 (3.5-5.1) mmol/L Chloride 104 (98-107) mmol/L Carbon Dioxide 23.6 (21.0-32.0) mmol/L Anion Gap 18.9 BUN 9.0 (7.0-18.0) mg/dL Creatinine 0.82 (0.55-1.02) mg/dL Est GFR ( Amer) >60 (>=60 mL/min/1.73m^2) Est GFR (Non-Af Amer) >60 (>=60 mL/min/1.73m^2) BUN/Creatinine Ratio 11.0 Glucose 97 (74-106) mg/dL Calcium 9.3 (8.5-10.1) mg/dL Magnesium 1.9 (1.8-2.4) mg/dL Total Bilirubin 0.6 (0.2-1.0) mg/dL AST 19 (15-37) U/L ALT 15 (14-59) U/L Alkaline Phosphatase 78 (46-116) U/L Total Protein 7.9 (6.4-8.2) g/dL Albumin 4.4 (3.4-5.0) g/dL Globulin 3.5 g/dL Albumin/Globulin Ratio 1.3 Discharge Plan Discharge Chief Complaint: Seizure Clinical Impression: Recurrent seizures Patient Disposition: [facility] Time of Disposition Decision: 15:42 Discharge location: [facility] ED Dr Murphy
== END 2025-03-09 16:45 | disposition short-term general hospital (02) ==
PROVIDERS: Emergency Provider Emergency Medicine; PCP Family Medicine
DX: G40.909 Epilepsy, unspecified, not intractable, without status epilepticus (principal); F17.200 Nicotine dependence, unspecified, uncomplicated
CPT/HCPCS: 36415; 70450; 72125; 76376; 80053; 80307; 83735; 85025; 93005; 96361; 96365; 96375; 99285; J3360

== ENCOUNTER 2025-03-29 12:37 | Emergency (ER) | payer OTHER, SELFPAY ==
--- OUTSIDE RECORDS SUMMARY | 2024-08-01 06:30 | XMS_ITS ---
Author Organization [facility] Address [address] [facility] [place] [address] Care Team Providers Care Gallery Or Museum Curator Name Role Phone Dr. Aman Henson Primary Care Provider [phone] Mahad Tania Cooper [phone] REASON FOR VISIT DEBRIDEMENT Encounters Encounter Location Date Provider Diagnosis [facility] [address] [facility] [place] [address] 08/01/2024 Tania Cooper Plan Of Treatment No Information Progress Notes * BHAVNA VILLAR (LIZY) MDOB :2000 (24 yo F)Acc No.[id number]:08/01/2024 Patient: JOYCE ESPANAEN WALDEMAR) Kp Provider: Cielo Cooper :2000 A ge:24 Y S ex:Female Date:08/01/2024 Address:[address] [place], [place] [id number] Pcp:Dr. Aman Henson Subjective: * Chief Complaints: * 1 . DEBRIDEMENT. * Medical History: Objective: * Vitals: Assessment: Plan: * Treatment: * Images: * Electronic signature of Elida Cooper on 03/29/2025 at 01:18 PM EDT Sign off status: Pending * Provider: Cielo Cooper Date: 0 08/01/2024 Generated for Florii ng/Faxing/eTransmitting on: 1 01:18 PM EDT
--- OUTSIDE RECORDS SUMMARY | 2024-09-04 05:45 | XMS_ITS ---
Author Organization [facility] Address [address] [facility] [place] [address] Care Team Providers Care Supervisor Cd Area Name Role Phone Dr. Aman Henson Primary Care Provider [phone] Mahad Cooper Tania Kamara [phone] REASON FOR VISIT DEBRIDEMENT + PERIO CHART RE EVAL TX PLAN Encounters Encounter Location Date Provider Diagnosis [facility] [address] [facility] [place] [address] 09/04/2024 Tania Cooper Plan Of Treatment No Information Progress Notes * BHAVNA VILLAR (LIZY) MDOB :2000 (24 yo F)Acc No.[id number]:09/04/2024 Patient: BHAVNA ESPANA (EASTON) Provider: Cielo Cooper :2000 A ge:24 Y S ex:Female Date:09/04/2024 Address:[address] [place], [place] [id number] Pcp:Dr. Aman Henson Subjective: * Chief Complaints: * 1 . DEBRIDEMENT + PERIO CHART RE EVAL TX PLAN. * Medical History: Objective: * Vitals: Assessment: Plan: * Treatment: * Images: * Electronic signature of Elida Cooper on 03/29/2025 at 01:18 PM EDT Sign off status: Pending * Provider: Cielo Cooper Date: 0 09/04/2024 Generated for Printi ng/Faxing/eTransmitting on: 1 01:18 PM EDT
--- OUTSIDE RECORDS SUMMARY | 2024-10-11 06:05 | XMS_ITS ---
Author Organization [facility] Address [address] [facility] [place] [address] Care Team Providers Care Auto Job Estimator Name Role Phone Dr. Aman Henson Primary Care Provider Do Sharp [phone] REASON FOR VISIT EXT Encounters Encounter Location Date Provider Diagnosis [facility] [address] [facility] [place] [address] 10/11/2024 Do Sharp Plan Of Treatment No Information Progress Notes * BHAVNA VILLAR (LIZY) MDOB :2000 (24 yo F)Acc No.[id number]:10/11/2024 Patient: JOYCE ESPANAEN WALDEMAR) Kp Provider: Justin Sharp :2000 A ge:24 Y S ex:Female Date:10/11/2024 Address:[address] [place], [place] [id number] Pcp:Dr. Aman Henson Subjective: * Chief Complaints: * 1 . EXT. * Medical History: Objective: * Vitals: Assessment: Plan: * Treatment: * Images: * Electronic signature of Anderson Sharp DMD on 03/29/2025 at 01:19 PM EDT Sign off status: Pending * Provider: Justin Sharp Date: 0 10/11/2024 Generated for Printi ng/Faxing/eTransmitting on: 1 01:19 PM EDT
[2025-03-29] VITALS (13 sets, daily range): BP systolic 112–131; BP diastolic 72–82; PULSE 64–98; TEMP 36.9; O2SAT 100; BMI 16.1
--- NOTE | 2025-03-29 13:08 | ECG_ITS ---
[facility] Test Date: 2025-03-29 Pat Name: BHAVNA VILLAR Department: Room: - Gender: Female Doctorate Of Chiropractic: : 2000 Requested By: [id number] Order Number: [id number] Reading MD: MACK PEDRAZA M.D. Measurements Intervals [place] Rate: 71 P: 80 MN: 144 QRS: 87 QRSD: 88 T: 60 QT: 368 QTc: 391 Interpretive Statements 1100 Sinus rhythm 4068 Nonspecific Twave abnormality 9130 borderline ECG Compared to ECG 03/09/2025 14:06:53 Sinus arrhythmia no longer present Electronically Signed On 03-29-2025 18:47:35 EDT by MACK PEDRAZA M.D.
--- NOTE | 2025-03-29 13:08 | XR_ITS ---
[address] [address] Patient Name: BHAVNA VILLAR MRN: [id number] date: 2000 Sex: F Assigned Patient Location: ER Current Patient Location: ED.MAIN Accession/Order Number: [id number] Exam Date: 03/29/2025 13:35 Report Date: 03/29/2025 14:02 At the request of: BERE SEPULVEDA MD Procedure: XR chest 1V XR chest 1V 03/29/2025 1:41 PM SIGNS AND SYMPTOMS: ^chest pain PROTOCOL: Frontal radiograph of the chest COMPARISON: 12/29/2024 FINDINGS: The trachea is midline. There is an implantable cardiac monitoring device over the left anterior chest wall. The heart and mediastinal structures are within normal limits. The lung parenchyma is clear. The bony thorax is intact. XR/XR chest 1V IMPRESSION: No acute cardiopulmonary pathology. Impression dictated by: Chon Martinez M.D. 03/29/2025 2:02 PM Dictation Location: [place] [address] Electronically authenticated by: [id number] Y Date: 03/29/2025 14:02
[2025-03-29] MEDS: KETOROLAC TROMETHAMINE 30 MG/ML VIAL IM (13:16)
--- OUTSIDE RECORDS SUMMARY | 2025-03-29 13:18 | XMS_ITS | Encounter Summary ---
Author Organization [facility] Address [address] [place] [address] Care Team Providers Care Psych Social Worker Name Role Phone House Sr., Eric BUCKLEY Primary Care Provider + Micaela Randle RD Unavailable [phone] Source Comments In the event this information is protected by the Federal Confidentiality of Alcohol and Drug AbusePatient Records regulations: The Federal rules restrict any use of the information to criminally investigate or prosecute any alcohol or drug abuse patient.[facility] Encounter Details Date Type Department Care Team (Late st Contact Info) Description 10/07/2020 Get Medical Advice Plastic Surgery [address] [id number] [place] [address] [place] [address] RE: Medication Question (Not Renewal) Social History Tobacco Use Types Packs/Day Years Used Date Smoking Tobacco: Never Smokeless Tobacco: Never Area Deprivation Index Answer Date Jem rded National Score (1-100), lower number is lower ri sk Not on file 06/02/2020 State Score (1-10), lower number is lower risk N ot on file 06/02/2020 Data from: https://www.neighborhoodatlas.medicine.[facility]/. Last address [...] Care Team (Late st Contact Info) Description 07/08/2025 3:00 PM EST Office Visit Endocrinology [address] [place] [address] Gale Kinney, ROSA.GRAIN OILSEED OR PASTURE FARM WORKER [address] [place] [address] 6 mo follow up documented as of this encounter Visit Diagnoses Not on filedocumented in this encounter Additional Health Concerns Infection Onset Date Last Indicated Resolved Time COVID-19 Rule-Out 11/26/2020 12/01/2020 12/02/2020 1:45 PM EDT documented as of this encounter Care Teams Psych Social Worker Relationship Specialty Start Date End Date Eric Isbell Sr., DO PCP - General Family Medicine 03/29/[address] [place] [address] Registered Dietitian Nutrition 02/19/25 documented as of this encounter
--- OUTSIDE RECORDS SUMMARY | 2025-03-29 13:18 | XMS_ITS | Encounter Summary ---
Author Organization [facility] Address [address] [place] [address] Care Team Providers Care Stock Raiser Name Role Phone Eric Isbell DO Primary Care Provider [phone] Encounter Details Date Type Department Care Team (Late st Contact Info) Description 12/27/2024 Orders Only [facility] Card[facility] Clinic [address] [place] [address] Aaron Harding MD [address] [place] [address] Social History Tobacco Use Types [...] Information Value Date Recorded Sex Assigned at Choose not to disclose 9:58 PM EDT Legal Sex Female 10:05 PM EDT Gender Identity Male 06/17/2023 10:34 AM EST Sexual Orientation Choose not to disclose 2024 9:58 PM EDT documented as of this encounter Plan of Treatment Not on file documented as of this encounter Procedures Procedure Name Priority Date/Time Associated Diagnosis Comments CARDIAC DEVICE CHECK - REMOTE - LOOP RECORDER (ILR) Routine 12/27/2024 12:00 AM EDT documented in this encounter Results * Cardiac device check - Remote loop recorder (ILR) (12/27/2024 12:00 AM EDT) Anatomical Region Laterality Modality Other 12/27/2024 us Aaron Harding MD CV IMPLANTABLE CARDIAC DEVICE W[place] OCEDURES Final Result documented in this encounter Visit Diagnoses Not on filedocumented in this encounter Care Teams Stock Raiser Relationship Specialty Start Date End Date Eric Isbell DO [address] [place] [address] PCP - General 02/01/23 documented as of this encounter
--- OUTSIDE RECORDS SUMMARY | 2025-03-29 13:18 | XMS_ITS | Encounter Summary ---
Author Organization [facility] Address [address] [place] [address] Care Team Providers Care Soccer Commentator Name Role Phone House Sr., Eric BUCKLEY Primary Care Provider + Micaela Randle RD Unavailable [phone] Source Comments In the event this information is protected by the Federal Confidentiality of Alcohol and Drug AbusePatient Records regulations: The Federal rules restrict any use of the information to criminally investigate or prosecute any alcohol or drug abuse patient.[facility] Encounter Details Date Type Department Care Team (Late st Contact Info) Description 12/04/2020 Surgical [facility] H[facility] MA[facility] G090 [address] [place] [address] Salvatore Morin MD [address] [place] [address] Social History Tobacco Use Types [...] on file 06/02/2020 Data from: https://www.neighborhoodatlas.medicine.[facility]/. Last address used for calculation [...] 3:00 PM EST Office Visit Endocrinology [address] [place] [address] Gale Kinney, [employer] MAINFRAME DEVELOPER.[facility] [address] [place] [address] 6 mo follow up documented as of this encounter Visit Diagnoses Not on filedocumented in this encounter Care Teams Soccer Commentator Relationship Specialty Start Date End Date Eric Isbell Sr., PCP - General Family Medicine 03/29/[address] [place] [address] Registered Dietitian Nutrition 02/19/25 documented as of this encounter
--- OUTSIDE RECORDS SUMMARY | 2025-03-29 13:18 | XMS_ITS | Encounter Summary ---
Author Organization [facility] Address [facility] [place] [place] [address] Care Team Providers Care Winery Cellar Hand Name Role Phone House Sr., Eric BUCKLEY Primary Care Provider + Micaela Randle RD Unavailable [phone] Source Comments In the event this information is protected by the Federal Confidentiality of Alcohol and Drug AbusePatient Records regulations: The Federal rules restrict any use of the information to criminally investigate or prosecute any alcohol or drug abuse patient.[facility] Encounter Details Date Type Department Care Team (Late st Contact Info) Description 02/26/2025 Patient Msg Adult Psychology [facility] [address] [place] [address] Tammy Thomas PSYD [address] [place] [address] Follow Up Social History Tobacco Use Types Packs/Day Years Used Date Smoking Tobacco: Never Smokeless Tobacco: Never Alcohol Use Standard Drinks/Week Comments Not Currently 0 (1 standard drink = 0.6 oz pur e alcohol) Area Deprivation Index Answer Date Jem rded National Score (1-100), lower number is lower ri sk 76 04/16/2024 State Score (1-10), lower number is lower risk 6 04/16/2024 Data from: https://www.neighborhoodatlas.medicine.[facility]/. Last address used for calculation [address] [...] 07/08/2025 3:00 PM EST Office Visit Endocrinology [address] [place] [phone] Gale Kinney, INDUSTRIAL ENGINEERING.SUPERVISOR RECEIVING AND PROCESSING [address] [place] [address] 6 mo follow up documented as of this encounter Visit Diagnoses Not on filedocumented in this encounter Care Teams Winery Cellar Hand Relationship Specialty Start Date End Date Eric Isbell Sr., PCP - General Family Medicine 03/29/[address] [facility] [place] [address] Registered Dietitian Nutrition 02/19/25 documented as of this encounter
--- OUTSIDE RECORDS SUMMARY | 2025-03-29 13:18 | XMS_ITS | Encounter Summary ---
Author Organization [facility] Address [address] [place] [address] Care Team Providers Care Transportation Inspector Name Role Phone House Sr., Eric BUCKLEY Primary Care Provider + Micaela Randle RD Unavailable [phone] Source Comments In the event this information is protected by the Federal Confidentiality of Alcohol and Drug AbusePatient Records regulations: The Federal rules restrict any use of the information to criminally investigate or prosecute any alcohol or drug abuse patient.[facility] Encounter Details Date Type Department Care Team (Late st Contact Info) Description 10/08/2020 Patient Msg Plastic Surgery [address] [id number] Provider, [facility] Cardiac Clearance Social History Tobacco Use Types Packs/Day Years Used Date Smoking Tobacco: Never Smokeless Tobacco: Never Area Deprivation Index Answer Date Jem rded National Score (1-100), lower number is lower ri sk Not on file 06/02/2020 State Score (1-10), lower number is lower risk N ot on file 06/02/2020 Data from: https://www.neighborhoodatlas.[facility]/. Last address used for calculation [...] 3:00 PM EST Office Visit Endocrinology [address] [place] [address] Gale Kinney, CABLE SPLICER ASSISTANT.PHY THERAPIST [address] [place] [address] 6 mo follow up documented as of this encounter Visit Diagnoses Not on filedocumented in this encounter Additional Health Concerns Infection Onset Date Last Indicated Resolved Time COVID-19 Rule-Out 11/26/2020 12/01/2020 12/02/2020 1:45 PM EDT documented as of this encounter Care Teams Transportation Inspector Relationship Specialty Start Date End Date Eric Isbell Sr., DO PCP - General Family Medicine 03/29/[address] [place] [address] Registered Dietitian Nutrition 02/19/25 documented as of this encounter
--- OUTSIDE RECORDS SUMMARY | 2025-03-29 13:18 | XMS_ITS | Encounter Summary ---
Author Organization [facility] Address [address] [place] [address] Care Team Providers Care Alum Plant Supervisor Name Role Phone House Sr., Eric BUCKLEY Primary Care Provider + Micaela Randle RD Unavailable [phone] Source Comments In the event this information is protected by the Federal Confidentiality of Alcohol and Drug AbusePatient Records regulations: The Federal rules restrict any use of the information to criminally investigate or prosecute any alcohol or drug abuse patient.[facility] Encounter Details Date Type Department Care Team (Late st Contact Info) Description 04/30/2024 Patient Msg Endocrinology [address] [place] [address] Kelly Stearns LSW [address] [place] [address] resources Social History Tobacco Use [...] is lower risk 6 04/16/2024 Data from: https://www.neighborhoodatlas.medicine.[facility]/. Last address used for calculation [address] [...] Author No 12/05/2020 6:49 PM EDT Charles Anders, NATHANIEL * Because of a physical, mental, or [...] 07/08/2025 3:00 PM EST Office Visit Endocrinology [address] [place] [phone] Gale Kinney, EMISSIONS INSPECTOR.[facility] [address] [place] [address] 6 mo follow up documented as of this encounter Visit Diagnoses Not on filedocumented in this encounter Care Teams Alum Plant Supervisor Relationship Specialty Start Date End Date Eric Isbell Sr., DO PCP - General Family Medicine 03/29/[address] [place] [address] Registered Dietitian Nutrition 02/19/25 documented as of this encounter
--- OUTSIDE RECORDS SUMMARY | 2025-03-29 13:18 | XMS_ITS | Patient Health Record ---
Author Organization [facility] Address [address] [place] [address] Care Team Providers Care Bat Lathe Operator Name Role Phone Dr. Aman Henson Primary Care Provider [phone] Tania Cooper Unavailable [phone] Do [facility] Unavailable [phone] Reason For Referral No Information Problems Problem Type SNOMED Code ICD Code Onset Dates Problem Status W/U Status Risk Notes Problem Anxiety (29141314) Anxiety (F41.9) Active confirmed Problem Posttraumatic stress disorder (30592467) PTSD (post-traumat ic stress disorder) (F43.10) Active confirmed Problem Gender dysphoria (44396837) Gender dysphoria (F64.9) Active confirmed Encounters Encounter Location Date Provider Diagnosis [facility] [address] [place] [address] 07/30/2024 Do [facility] Encounter for dental examination and cleaning with abnormal findings Z01.21 ; Other dental procedure status Z98.818 ; Disturbances in tooth eruption K00.6 ; Chronic gingivitis, plaque induced K05.10 ; Dental caries on pit and fissure surface penetrating into dentin K02.52 and Cracked tooth K03.81 Assessments Encounter Date Diagnosis (ICD Code) Assessment Notes Treatment Notes Treatment Clinical Notes Section Notes 07/30/2024 Encounter for dental examination and cleaning with abnormal findings (ICD-10 - Z01.21) 07/30/2024 Other dental procedure status (ICD-10 - Z98.818) 07/30/2024 Disturbances in tooth eruption (ICD-10 - K00.6) 07/30/2024 Chronic gingivitis, plaque induced (ICD-10 - K05.10) 07/30/2024 Dental caries on pit and fissure surface penetrating into dentin (ICD-10 - K02.52) 07/30/2024 Cracked tooth (ICD-10 - K03.81) Plan Of Treatment No Information Insurance Providers Payer Name Payer Address Payer Phone Subscriber Number Group Number Insured Name Patient Relationship to Insured Coverage Start Date Coverage End Date [employer] [place] [employer] [address] [place] [address] [id number] BHAVNA VILLAR (LIZY) Self - patient is the insured 3 [employer] [facility] [place] [address] [place] [address] [id number] BHAVNA VILLAR (LIZY) Self - patient is the insured 3 [facility] [employer]-[facility] [employer] [address] [place] [address] [id number] BHAVNA VILLAR (LIZY) Self - patient is the insured 2 3 [employer] MEDICAID [employer] after [employer] rmed [address] [place] [address] [id number] BHAVNA VILLAR (LIZY) Self - patient is the insured 2 3 [employer] [place] [employer] [address] [address] [place] [address] [id number] BHAVNA VILLAR (LIZY) Self - patient is the insured 5 Dental [employer] [facility] [place] [address] [place] [address] [id number] BHAVNA VILLAR (LIZY) Self - patient is the insured 5
--- OUTSIDE RECORDS SUMMARY | 2025-03-29 13:18 | XMS_ITS | Encounter Summary ---
Author Organization [facility] Address [address] [place] [address] Care Team Providers Care Brand Marketing Intern Name Role Phone House Sr., Eric BUCKLEY Primary Care Provider + Micaela Randle RD Unavailable [phone] Source Comments In the event this information is protected by the Federal Confidentiality of Alcohol and Drug AbusePatient Records regulations: The Federal rules restrict any use of the information to criminally investigate or prosecute any alcohol or drug abuse patient.[facility] Encounter Details Date Type Department Care Team (Late st Contact Info) Description 12/13/2020 Patient Msg Pediatrics [address] [place] [address] Joslyn Bland MD [address] [place] [address] Request an Appointment Social History [...] N ot on file 06/02/2020 Data from: https://www.neighborhoodatlas.medicine.[facility]/. Last address used for calculation Not [...] Entry Date Author No 12/05/2020 6:49 PM EDCharles Shah RN documented in this encounter Plan of Treatment Upcoming Encounters Date Type Department Care Team (Late st Contact Info) Description 07/08/2025 3:00 PM EST Office Visit Endocrinology [address] [place] [address] Gale Kinney, LASER TECHNICIAN.SAMPLE STEAMER [address] [place] [address] 6 mo follow up documented as of this encounter Visit Diagnoses Not on filedocumented in this encounter Care Teams Brand Marketing Intern Relationship Specialty Start Date End Date Eric Isbell Sr., PCP - General Family Medicine 03/29/[address] [place] [address] Registered Dietitian Nutrition 02/19/25 documented as of this encounter
--- OUTSIDE RECORDS SUMMARY | 2025-03-29 13:18 | XMS_ITS | Encounter Summary ---
Author Organization [facility] Address [address] [place] [address] Care Team Providers Care Citrus Peeler Name Role Phone House Sr., Eric BUKCLEY Primary Care Provider + Micaela Randle RD Unavailable [phone] Source Comments In the event this information is protected by the Federal Confidentiality of Alcohol and Drug AbusePatient Records regulations: The Federal rules restrict any use of the information to criminally investigate or prosecute any alcohol or drug abuse patient.[facility] Encounter Details Date Type Department Care Team (Late st Contact Info) Description 12/13/2020 Patient Msg Internal Medicine [place] [address] [place] [address] Provider, Ccf Appointment Social History [...] ot on file 06/02/2020 Data from: https://www.neighborhoodatlas.medicine.[facility]/. Last address used for [...] EDCharles Shah RN * Do you have serious difficulty [...] 3:00 PM EST Office Visit Endocrinology [address] [place] [address] Gale Kinney APRN.TECHNOLOGY METHODOLOGY CONSULTANT [address] [place] [address] 6 mo follow up documented as of this encounter Visit Diagnoses Not on filedocumented in this encounter Care Teams Citrus Peeler Relationship Specialty Start Date End Date Eric Isbell Sr., PCP - General Family Medicine 03/29/[address] [place] [address] Registered Dietitian Nutrition 02/19/25 documented as of this encounter
--- OUTSIDE RECORDS SUMMARY | 2025-03-29 13:18 | XMS_ITS | Clinical Summary ---
Author Organization [facility] Address [address] [facility], [address] [place] [address] Care Team Providers Care Pipe Processor Name Role Phone House Sr., Eric [...] 19+ 3-dose series) 2020 Pap smear 2022 Flu vaccine (#1) 01/25/2025 COVID-19 Vaccine (1 - 2023-2 5 season) 2025 Pneumococcal 0-49 years Vaccine Aged Out [...] patient's age to complete this topic Insurance Member Subscriber Plan / Payer ( fective 2018-Present) Name:Karis Kovacs Relation to Subscriber:Self Name:Karis Kovacs Payer ID:[id number] (NAIC) Group ID:Not on file Type:Not on file Address: [address] [id number] Advance Directives * Full Code (Latest Code Status on File) Date Activated Date Inactivated Comments 07/17/2017 5:41 AM 07/17/2017 8:14 PM Care Teams Pipe Processor Relationship Specialty Start Date End Date Eric Isbell Sr., [address] [place] [address] PCP - General Family Medicine 07/17/17
[2025-03-29] MEDS: IPRATROPIUM/ALBUTEROL SULFATE 3 ML AMPUL.NEB IH (13:19)
--- OUTSIDE RECORDS SUMMARY | 2025-03-29 13:19 | XMS_ITS | Encounter Summary ---
Author Organization [facility] Address [address] [place] [address] Care Team Providers Care Human Resources Recruiter Name Role Phone Eric Isbell DO Primary Care Provider [phone] Encounter Details Date Type Department Care Team ([facility] st Contact Info) Description 10/27/2024 Orders Only [facility] [address] [place] [address] Josh Pang MD [address] [place] [address] Social History Tobacco Use Types [...] on filedocumented in this encounter Care Teams Human Resources Recruiter Relationship Specialty Start Date End Date SukhiEricDO [address] [place] [address] PCP - General 02/01/23 documented as of this encounter
--- OUTSIDE RECORDS SUMMARY | 2025-03-29 13:19 | XMS_ITS | Encounter Summary ---
Author Organization [employer] Address [id number] [address] [place] [address] Care Team Providers Care Charity Fundraiser Name Role Phone Eric Isbell DO Primary Care Provider [phone] Reason for Visit * Reason Onset Date Comments Appointment 10/19/2021 Encounter Details Date Type Department Care Team ([facility] Contact Info) Description 10/19/2021 Telephone [facility] Neurology [address] [place] [address] Carlene Skinner Appointment Social History [...] new patient appointment for Epilepsy, nonconvulsive . *[place]? Please make sure to verify patient insurance. * Telephone Encounter - Brenton Miller - 10/19/2021 2:51 PM EDT Patient scheduled 12/11/21 w/ [facility] in [place]. Paperwork sent: 10/19/21 [facility] Insurance rajseh [place] * Telephone Encounter - Sharlene Noble [...] no sooner appointments. Please contact Carlita at [phone], option 2. Thanks! * Telephone Encounter - [...] Rule-Out 08/16/2024 08/16/2024 025 12:59 PM EST Respiratory Rule-Out 02/16/2025 02/16/2025 025 5:01 PM EDT documented as of this encounter Care Teams Charity Fundraiser Relationship Specialty Start Date End Date Eric Isbell DO [address] [id number] PCP - General Family Medicine 08/16/24 documented as of this encounter
--- OUTSIDE RECORDS SUMMARY | 2025-03-29 13:19 | XMS_ITS | Clinical Summary ---
Author Organization [facility] Address [address] [place] [address] Phone Care Team Providers Care Commercial Real Estate Lender Name Role Phone Eric Isbell DO Primary Care Provider [phone] Allergies Active Allergy Reactions Criticality Noted Date Comments Codeine Hives,Rash,Itching,U nkno wn Medium 07/17/2017 Other Reaction(s): Hives Other Reaction(s): Not available Topiramate Seizure,Respiratory depression 01/23/2025 Medications albuterol 90 mcg/actuation inhaler Inhale 2 puffs every 4 hours if needed. 5 Active brivaracetam (Briviact) 100 mg tablet tablet Take 1 tablet (100 mg) by mouth twice a day. 4 Active cloBAZam (Onfi) 10 mg tablet Take 1 tablet (10 mg) by mouth once daily. 3 Active cyclobenzaprin e (Flexeril) 5 mg tablet Take 1 tablet (5 mg) by mouth 3 times a day as needed for muscle spasms. 5 Active dexmethylpheni date XR (Focalin XR) 10 mg 24 hr capsule Take 1 capsule (10 mg) by mouth once daily. 5 Active flecainide (Tambocor) 100 mg tablet Take 1 tablet (100 mg) by mouth 2 times a day. Active metoprolol succinate XL (Toprol-XL) 25 mg 24 hr tablet Take 1 tablet (25 mg) by mouth once daily. 4 01/12/20 26 Active lamoTRIgine (LaMICtal) 200 mg tablet Take 1 tablet (200 mg) by mouth 2 times a day. Active nasal spray Nayzilam 5 mg/spray (0.1 mL) spray,non-aero yaron Administer 0.1 mg/kg into affected nostril(s) if needed. 3 Active midodrine (Proamatine) 5 mg tablet Take 1 tablet (5 mg) by mouth 3 times a day. 3 Active pantoprazole (ProtoNix) 40 mg EC tablet Take 1 tablet (40 mg) by mouth once daily. Active promethazine (Phenergan) 25 mg tablet Take 1 tablet (25 mg) by mouth every 6 hours if needed for nausea or vomiting. 5 Active zonisamide (Zonegran) 25 mg capsule Take 2 capsules (50 mg) by mouth once daily. 5 04/10/20 25 Active fludrocortison e (Florinef) 0.1 mg tabletIndicati ons:Shortness of breath,Palpita tions Take 1 tablet (0.1 mg) by mouth once daily. 90 tablet 3 02/11/2025 6:09 PM EDT 5 01/24/20 26 Active senna 8.6 mg tablet Take 2 tablets (17.2 mg) by mouth twice a day. 4 03/06/20 25 Discontinu ed(Therapy completed) Active Problems Problem Noted Date Diagnosed Date Implantable loop recorder present 01/23/2025 Body mass index (BMI) of 19.0 to 19.9 in adult 0 01/23/2025 Never smoked tobacco 01/23/2025 Supraventricular tachycardia, unspecified 2024 Palpitations 01/23/2025 Family history of hypertrophic cardiomyopathy Shortness of breath 01/23/2025 Dizziness and giddiness 01/23/2025 Encounters Date Type Department Care Team Description 03/06/2025 1:30 PM EDT Office Visit [address] [address] Shantanu Robles MD Palpitations (Primary Dx); Supraventricular tachycardia, unspecified; Implantable loop recorder present; Family history of hypertrophic cardiomyopathy; Shortness of breath; Dizziness and giddiness; Never smoked tobacco; Body mass index (BMI) of 19.0 to 19.9 in adult 03/06/2025 Travel 01/23/2025 1:10 PM EDT Office Visit [address] [address] Shantanu Robles MD Supraventricular tachycardia, unspecified; Shortness of breath; Palpitations; Dizziness and giddiness; Implantable loop recorder present; Family history of hypertrophic cardiomyopathy; Never smoked tobacco; BMI < 18.5 01/23/2025 Travel from Last 3 Months Family History Medical History Relation Name Comments No Known Problems Mother Mitral valve prolapse Sister Supraventricular tachycardia Sister Relation Name Status Comments Mother Sister Social History Tobacco Use Types [...] PM EST Sexual Orientation Not on file Last Filed Vital Signs Vital Sign Reading Time Taken Comments Blood Pressure 104/72 03/06/2025 1:24 PM EDT Pulse 80 03/06/2025 1:24 PM EDT Temperature - - Respiratory Rate - - Oxygen Saturation - - Inhaled Oxygen Concentration - - Weight 47.2 kg (104 lb) 03/06/2025 1:23 PM EDT Height 154.9 cm (5' 1 ) 03/06/2025 1:23 PM EDT Body Mass Index 19.65 03/06/2025 1:23 PM EDT Plan of Treatment Upcoming Encounters Date Type Department Care Team (Late st Contact Info) Description 10/16/2025 3:40 PM EDT Office Visit [address] [address] Shantanu Robles MD [address] [place] [address] 2, [address] [address] Health Maintenance Due Date Last Done Comments HIV Screening 2001 Lipid Panel 2001 Yearly Adult Physical 2001 MMR Vaccines (1 of 1 - Stand andrey series) 2002 HPV Vaccines (1 - 3-dose series) 2016 Meningococcal B Vaccine (1 o f 2 - Standard) 2017 Diabetes Screening 2019 Hepatitis C Screening 2019 Hepatitis B Vaccines (1 of 3 - 19+ 3-dose series) 2020 Cervical Cancer Screening 2022 HPV/Cotest 2022 Pap Smear 2022 COVID-19 Vaccine (1 - 2023-2 5 season) 2025 Influenza Vaccine (#1) 2025 DTaP/Tdap/Td Vaccines (2 - T d or Tdap) 08/23/2033 08/23/2023 Zoster Vaccines (1 of 2) 2051 Pneumococcal [...] on patient's age to complete this topic Procedures Procedure Name Priority Date/Time Associated Diagnosis Comments ECG 12-LEAD Routine 01/23/2025 1:10 PM EDT Supraventricular tachycardia, unspecified Palpitations from Last 3 Months Results * ECG 12 Lead (01/23/2025 1:10 PM EDT) Narrative CPACS - 01/23/2025 3:01 PM EDT Normal sinus rhythm with right axis deviation us Shantanu Robles MD ECG ORDERABLES Final Resu lt CPACS from Last 3 Months Insurance [facility] Member Subscriber Plan / Payer ( fective 2021-Present) Name:Karis Kovacs Relation to Subscriber:Self Name:Karis Kovacs Payer ID:[id number] (NAIC) Group ID:Not on file Type:Not on file Address: [address] [place] [phone] Care Teams Commercial Real Estate Lender Relationship Specialty Start Date End Date Eric Isbell DO [address] [place] [address] PCP - General Family Medicine 01/09/25
--- OUTSIDE RECORDS SUMMARY | 2025-03-29 13:19 | XMS_ITS | Encounter Summary ---
Author Organization [facility] Address [address] [place] [address] Care Team Providers Care Customer Account Representative Name Role Phone House Sr., Eric BUCKLEY Primary Care Provider + Micaela Randle RD Unavailable [phone] Source Comments In the event this information is protected by the Federal Confidentiality of Alcohol and Drug AbusePatient Records regulations: The Federal rules restrict any use of the information to criminally investigate or prosecute any alcohol or drug abuse patient.[facility] Encounter Details Date Type Department Care Team (Late st Contact Info) Description 08/01/2024 Patient Msg [facility] [address] [place] [address] Provider, Ccf Referral Social History Tobacco [...] risk 6 04/16/2024 Data from: https://www.neighborhoodatlas.[facility]/. Last address used for calculation spring04/16/2024 [...] Author No 12/05/2020 6:49 PM SIENAT Charles nAders RN * Because of a physical, mental, [...] 3:00 PM EST Office Visit Endocrinology [address] [place] [address] Gale Kinney, LAST IRONER.ASSURANCE SENIOR MANAGER [address] [place] [address] 6 mo follow up documented as of this encounter Visit Diagnoses Not on filedocumented in this encounter Care Teams Customer Account Representative Relationship Specialty Start Date End Date Eric Isbell Sr., DO PCP - General Family Medicine 03/29/[address] [place] [address] Registered Dietitian Nutrition 02/19/25 documented as of this encounter
--- OUTSIDE RECORDS SUMMARY | 2025-03-29 13:19 | XMS_ITS | Encounter Summary ---
Author Organization [facility] Address [address] [facility] [place] [address] Care Team Providers Care Game Technician Name Role Phone House, Eric Boland MD Primary Care Provider [phone] Lavonne Davies NET MANAGER Unavailable [phone] Encounter Details Date Type Department Care Team (Late st Contact Info) Description 04/19/2023 Abstract [facility] [address] [place] [phone] Caleb Easton MD [address] [place] [phone] Social History Tobacco Use Types Packs/Day Years [...] Care Team (Late st Contact Info) Description 04/04/2025 2:30 PM EDT Procedure Visit [facility] [address] [facility] [address] [place] [phone] Lavonne Davies NP [address] [place] [phone] 05/09/2025 1:00 PM EST Office Visit [facility] [address] [place] [address] Emy Aguirre, ROSA-COVERAGE SPECIALIST RN [address] [facility] [place], [place] [phone] documented as of this encounter Visit Diagnoses Not on filedocumented in this encounter Care Teams Game Technician Relationship Specialty Start Date End Date Eric Isbell MD PCP - General Family Medicine 02/11/23 Lavonne Davies NP [address] [facility] [address] [place] [address] [phone] PCP - [facility] 12/26/23 documented as of this encounter
--- OUTSIDE RECORDS SUMMARY | 2025-03-29 13:19 | XMS_ITS | Encounter Summary ---
Author Organization [employer] Address [id number] [address] [place] [address] Care Team Providers Care Glory Hole Tender Name Role Phone Eric Isbell DO Primary Care Provider [phone] Reason for Referral * Diagnostic Imaging (Routine) - Closed Specialty Diagnoses / Procedures Referred By Contac t Referred To Contact Radiology Diagnoses Pain Procedures CT brain without contrast [facility] [address] [place] [phone] Phone: tel: fax: Referral ID Status Reason Start Date Expiration Date Visits Re quested Visits Authorized [id number] Closed 11/25/2023 11/24/2024 1 1 * Diagnostic Imaging (Routine) - Closed Specialty Diagnoses / Procedures Referred By Contac t Referred To Contact Radiology Diagnoses Pain Procedures CT cervical spine without contrast [facility] [address] [place] [phone] Phone: tel: fax: Referral ID Status Reason Start Date Expiration Date Visits Re quested Visits Authorized [id number] Closed 11/25/2023 11/24/2024 1 1 Encounter Details Date Type Department Care Team (Late st Contact Info) Description 11/25/2023 Orders Only [facility] [address] [place] [phone] Transcribe, Orders Support User Pain (Primary Dx) Social History Tobacco Use Types Packs/Day Years Used Date Smoking Tobacco: Never Smokeless Tobacco: Never Alcohol Use Standard Drinks/Week Comments Not Currently 0 (1 standard drink = 0.6 oz pur e alcohol) [facility] Utilities Answer Date Recorded In the [...] <enter goal here> General Yes Jeanna Damon, OPTICAL WORKER Note: Evaluation of progress towards goal: [...] Rule-Out 02/16/2025 02/16/2025 025 5:01 PM EDT Assessment Noted Time PHQ-9 Depression Total Score: 0 11/25/19 12:53 PM EDT documented as of this encounter Care Teams Glory Hole Tender Relationship Specialty [place] [address] [place] [address] PCP - General Family Medicine 08/16/24 documented as of this encounter
--- OUTSIDE RECORDS SUMMARY | 2025-03-29 13:19 | XMS_ITS | Clinical Summary ---
Author Organization [facility] Address [address] [place] [address] Care Team Providers Care Computational Scientist Name Role Phone House, Eric Boland MD Primary Care Provider [phone] Lavonne Davies SURVEILLANCE OPERATOR Unavailable [phone] Allergies Active Allergy Reactions Criticality Noted Date Comments Codeine Hives,Itching Medium 07/17/2017 Other Reaction(s): Hives Other Reaction(s): Not available Topiramate Seizures 01/23/2025 Other Reaction(s): Respiratory depression Medications True Metrix Blood Glucose Test test strip USE TEST STRIP TO TEST BLOOD SUGAR EVERY DAY 10/29/19 23 Active Ciclopirox 1 % shampooIndication s:Other seborrheic dermatitis Lather on wet hair, leave on 5 min, rinse 2-3 x week, 30 day supply 120 mL 11 10/11/19 24 Active metoprolol succinate XL (Toprol-XL) 25 MG 24 hr tablet Take 12.5 mg by mouth Daily 11/16/19 24 Active lamoTRIgine (LaMICtal) 200 MG tabletIndications :Seizure disorder (HCC) Take 1 tablet (200 mg) by mouth in the morning and 1 tablet (200 mg) before bedtime. 60 tablet 11 01/30/20 24 Active flecainide (Tambocor) 100 MG tablet Take 100 mg by mouth in the morning and 100 mg in the evening. 02/07/20 24 Active cloBAZam (Onfi) 10 MG tabletIndications :Intractable complex partial epilepsy (HCC) Take 1 tablet (10 mg) by mouth at bedtime 30 tablet 2 05/21/20 24 Active Midazolam (Nayzilam) 5 MG/0.1ML solutionIndicatio ns:Intractable complex partial epilepsy (HCC) Administer 1 spray into affected nostril(s) if needed (1 spray 5 mg in one nostril x1 may repeat in opposite nostril in 10 min) 6 each 2 07/24/19 25 Active azelaic acid (Finacea) 15 % gelIndications:Ac ne vulgaris Apply thin layer to the face, once daily, 30 day supply 50 g 07/26/19 25 Active tretinoin (Retin-A) 0.05 % creamIndications: Acne vulgaris Apply to face, once daily at evening/night time, 30 day supply 45 g 07/26/19 25 Active promethazine (Phenergan) 25 MG tablet Instructions: TAKE 1 TABLET BY MOUTH THREE TIMES DAILY NEEDED FOR NAUSEA AND VOMITING FOR 2 DAYS 01/03/20 25 Active pantoprazole (ProtoNix) 40 MG EC tablet Take 40 mg by mouth Daily 10/16/19 25 Active brivaracetam (Briviact) 100 MG tablet tabletIndications :Intractable complex partial epilepsy (HCC),Focal epilepsy with impairment of consciousness, intractable (HCC),Epilepsy, 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HCC) Take 1 tablet (100 mg) by mouth in the morning and 1 tablet (100 mg) before bedtime. 60 tablet 2 01/08/20 25 Active zonisamide (Zonegran) 100 MG capsuleIndication s:Psychogenic nonepileptic seizure Take 1 capsule (100 mg) by mouth at bedtime 30 capsule 2 02/07/20 25 025 Active Continuous Glucose Sensor (FreeStyle Goyo 2 Plus Sensor) [facility] USE DIRECTED to check blood sugar change every 15 days 02/08/20 25 Active ondansetron ODT (Zofran-ODT) 4 MG disintegrating tablet 02/13/20 25 Active amoxicillin-clavu lanate (Augmentin) 875-125 MG tablet 02/13/20 25 Active fludrocortisone (Florinef) 0.1 MG tablet Take 1 tablet by mouth Daily Active busPIRone (Buspar) 10 MG tabletIndications :Anxiety Take 1 tablet (10 mg) by mouth in the morning and 1 tablet (10 mg) before bedtime. 180 tablet 3 02/16/20 25 026 Active dexmethylphenidat e XR (Focalin XR) 10 MG 24 hr capsuleIndication s:ADD (attention deficit disorder) without hyperactivity Take 1 capsule (10 mg) by mouth Daily Do not crush, chew, or split. 30 capsule 02/29/20 25 025 Active onabotulinumtoxin A (Botox 200u vial IJ Soln) 200 units injectionIndicati ons:Intractable chronic migraine without aura and without status migrainosus Inject up to 200 units intramuscular into face and neck muscles every 90 days for chronic migraines 1 each 3 03/04/20 25 Active dexmethylphenidat e XR (Focalin XR) 10 MG 24 hr capsuleIndication s:ADD (attention deficit disorder) without hyperactivity TAKE 1 CAPSULE BY MOUTH DAILY, DO NOT CRUSH, CHEW, OR SPLIT 30 capsule 10/11/19 25 025 Discontin ued(Reord er) Zavegepant HCl (Zavzpret) 10 MG/ACT solutionIndicatio ns:Intractable chronic migraine without aura and without status migrainosus Administer 1 spray into affected nostril(s) 1 (one) time if needed (onset of migraine) 8 each 3 02/16/20 25 025 onabotulinumtoxin A (Botox 200u vial IJ Soln) 200 units injection Inject into the shoulder, thigh, or buttocks 1 (one) time 025 Discontin ued(Reord er) Hospital, Clinic, or Other Facility Administered Medication [...] benefit from evaluation at neurocardiogenic clinic at [place] Pre-op testing 10/10/2023 ADD (attention deficit disorder) [...] condition 04/14/2023 Paresthesias 03/02/2023 Gender dysphoria 02/11/2023 UDFFY (dyspnea on exertion) 02/01/2023 Overview (02/11/2023): Last [...] - Nutrition consult placed - F/U with Public Health Veterinarian/PCP as outpatient Low TSH level 12/06/2019 Overview (02/11/2023): Last Assessment & Plan: Assessment: TSH on admission 0.5. Follows with pediatric endocrinology for testosterone injections. PLAN: - Follow up with endocrine outpatient Abnormal weight loss 12/05/2019 Overview (02/11/2023): Last Assessment & Plan: Assessment: Endorses 15lb weight loss over the period of a few weeks PLAN: - Nutrition consult placed - F/U with Public Health Veterinarian/PCP as outpatient Abrasion of face 01/25/2019 Closed [...] Encounters Date Type Department Care Team Description 03/04/2025 Refill [facility] [address] [facility] [address] [place] [phone] Lavonne Davies NP Intractable chronic migraine without aura and without status migrainosus (Primary Dx) 02/28/2025 Refill [facility] [address] [facility] [address] [place] [phone] Lavonne Davies NP ADD (attention deficit disorder) without hyperactivity 02/15/2025 9:00 AM EDT [facility]medicine [facility] [address] [place] [phone] Lavonne Davies NP Intractable chronic migraine without aura and without status migrainosus (Primary Dx); Chronic migraine without aura without status migrainosus, not intractable ; Anxiety 02/15/2025 Bamboo flowsheet [facility] [address] [place] [address] Lavonne Davies NP 02/15/2025 Travel 02/06/2025 2:30 PM EDT Office Visit [facility] [address] [facility] [address] [place] [phone] Sierra Anna NP Psychogenic nonepileptic seizure (Primary Dx); Chronic migraine without aura without status migrainosus, not intractable ; Chronic insomnia; Tremor 02/06/2025 Bamboo flowsheet [facility] [address] [place] [phone] Sierra Anna NP 02/06/2025 Travel 01/07/2025 Refill [facility] [address] [facility] [address] [place] [phone] Caleb Easton MD Intractable complex partial epilepsy (HCC); Focal epilepsy with impairment of consciousness, intractable (HCC); Epilepsy, 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HCC) 01/03/2025 4:00 PM EDT Telemedicine [facility] [address] [address] [place] [address] Lavonne Davies NP Psychogenic nonepileptic seizure (Primary Dx); Tachycardia; Syncope, unspecified syncope type; Migraine without aura and without status migrainosus, not intractable ; Seizure disorder (HCC) 01/03/2025 Bamboo flowsheet [facility] [address] [place] [phone] Lavonne Davies NP 01/03/2025 Travel from Last 3 Months Immunizations Immunization Administration Dates Next Due Pneumococcal Polysaccharide PPSV23 11/24/2022 Tdap 08/23/2023 Family History Medical History Relation Name Comments [...] Sign Reading Time Taken Comments Blood Pressure 118/74 02/06/2025 2:54 PM EDT Pulse 82 12/06/2024 1:19 PM EDT Temperature - - Respiratory Rate - - Oxygen Saturation - - Inhaled Oxygen Concentration - - Weight 46.3 kg (102 lb) 02/15/2025 9:07 AM EDT Height 157.5 cm (5' 2 ) 02/15/2025 9:07 AM EDT Body Mass Index 18.66 02/15/2025 9:07 AM EDT Plan of Treatment Upcoming Encounters Date Type Department Care Team (Late st Contact Info) Description 04/04/2025 2:30 PM EDT Procedure Visit [facility] [address] [place] [address] [address] Lavonne Davies, SURVEILLANCE OPERATOR [address] [address] 05/09/2025 1:00 PM EST Office Visit [facility] [address] [place] [address] [place] [address] Emy Aguirre, OBSTETRICIAN/GYNECOLOGIST-COMMISSIONING ENGINEER [address] [place] [address] Health Maintenance Due Date Last Done Comments Diabetes: Retinopathy Screening 2011 Influenza Vaccine (#1) 2025 Diabetes: Urine Protein Screening 05/11/2025 024, 05/11/2024 Diabetes: Hemoglobin A1C 06/15/2025 025, 01/04/2025, 04/16/2024 Insurance [employer] Care Teams Computational Scientist Relationship Specialty Start Date End Date Eric Isbell MD PCP - General Family Medicine 02/11/23 Lavonne Davies NP [address] [facility] [address] [address] PCP - [facility] 12/26/23
--- OUTSIDE RECORDS SUMMARY | 2025-03-29 13:19 | XMS_ITS | Encounter Summary ---
Author Organization [id number] [address] [place] [address] Care Team Providers Care State Game Warden Name Role Phone Eric Isbell DO Primary Care Provider [phone] Encounter Details Date Type Department Care Team ([facility] st Contact Info) Description 07/14/2023 Orders Only [facility] [address] [place] [phone] External, Scanning Provider Social History Tobacco Use [...] as of this encounter Care Teams State Game Warden Relationship Specialty Start Date End Date Eric Isbell DO [address] [place] [address] PCP - General Family Medicine 08/16/24 documented as of this encounter
--- OUTSIDE RECORDS SUMMARY | 2025-03-29 13:19 | XMS_ITS | Clinical Summary ---
Author Organization [facility] Address [id number] [address] [place] [address] Care Team Providers Care Clinical Nursing Intern Name Role Phone Eric Isbell DO Primary Care Provider [phone] Allergies Active Allergy Reactions Criticality Noted Date Comments Codeine Hives,Itching Medium 07/17/2017 Topiramate Anaphylaxis High 03/10/2025 Respiratory failure Medications * This document contains information received from the source organization and may not represent a complete record from that organization. lamoTRIgine (LaMICtal) 100 mg tablet Take 2 tablets (200 mg total) by mouth in the morning and 2 tablets (200 mg total) before bedtime. Active brivaracetam 100 mg tablet Take 1 tablet (100 mg total) by mouth in the morning and 1 tablet (100 mg total) before bedtime. Active naproxen (NAPROSYN) 500 mg tabletIndicati ons:Chronic bilateral low back pain with bilateral sciatica,Muscl e spasm,Chronic bilateral low back pain, unspecified whether sciatica present,Low back pain, unspecified back pain laterality, unspecified chronicity, unspecified whether sciatica present Take 1 tablet (500 mg total) by mouth in the morning and 1 tablet (500 mg total) before bedtime. 60 tablet 3 024 Active albuterol (PROVENTIL HFA;VENTOLIN HFA) 90 mcg/actuation inhalerIndicat ions:Influenza A (H1N1),Dehydra tion Inhale 2 puffs every 4 (four) hours as needed for wheezing. 18 g Active dexmethylpheni date XR (FOCALIN XR) 10 mg 24 hr capsule Take 1 capsule (10 mg total) by mouth daily. Active fludrocortison e (FLORINEF) 0.1 mg tablet Take 1 tablet (0.1 mg total) by mouth in the morning. Active ketoconazole (NIZORAL) 2 % shampoo Apply 1 Application topically daily as needed for irritation. Apply to damp skin, lather, leave on 5 minutes, and rinse Active midodrine (PROAMATINE) 5 mg tabletIndicati ons:symptomati c orthostatic hypotension Take 1 tablet (5 mg total) by mouth 3 (three) times a day Indications: a feeling of dizziness upon standing due to a drop in blood pressure. 14 tablet Active busPIRone (BUSPAR) 10 mg tablet Take 1 tablet (10 mg total) by mouth 3 (three) times a day. 30 tablet Active cloBAZam (ONFI) 10 mg tabletIndicati ons:Seizures (CMS-HCC) Take 1 tablet (10 mg total) by mouth nightly for 10 days. 10 tablet 2024 Active hydrOXYzine (ATARAX) 25 mg tablet Take 1 tablet (25 mg total) by mouth 3 (three) times a day as needed for anxiety. 20 tablet Active brexpiprazole (REXULTI) 0.5 mg tabletIndicati ons:Severe recurrent major depression without psychotic features (CMS-HCC) Take 1 tablet (0.5 mg total) by mouth in the morning. 14 tablet Active metoprolol succinate XL (TOPROL XL) 25 mg 24 hr tablet Take 0.5 tablets (12.5 mg total) by mouth in the morning. 14 tablet Active escitalopram (LEXAPRO) 20 mg tabletIndicati ons:Severe recurrent major depression without psychotic features (CMS-HCC) Take 1 tablet (20 mg total) by mouth in the morning. 14 tablet Active traZODone (DESYREL) 50 mg tablet Take 1 tablet (50 mg total) by mouth nightly as needed for sleep. 14 tablet Active midazolam (NAYZILAM) 5 mg/spray (0.1 mL) spray,non-aero yaron Administer 5 mg into each nostril as needed (seizure activity). 023 2024 Discontinued midodrine (PROAMATINE) 5 mg tabletIndicati ons:symptomati c orthostatic hypotension Take 1 tablet (5 mg total) by mouth 3 (three) times a day Indications: a feeling of dizziness upon standing due to a drop in blood pressure. 2024 Discontinued(S top Taking at Discharge) cloBAZam (ONFI) 10 mg tablet Take 1 tablet (10 mg total) by mouth before bedtime. 1999. 2024 Discontinued(S top Taking at Discharge) tiZANidine (ZANAFLEX) 2 mg tabletIndicati ons:Muscle spasm,Chronic bilateral low back pain, unspecified whether sciatica present Take 1 tablet (2 mg total) by mouth every 8 (eight) hours as needed for muscle spasms. 30 tablet 024 2024 Discontinued ondansetron (ZOFRAN) 4 mg tablet Take 1 tablet (4 mg total) by mouth daily as needed for nausea or vomiting. 30 tablet 1 024 2024 Discontinued ciclopirox (LOPROX) 1 % shampoo Apply 1 Application topically 2 (two) times a week. 024 2024 Discontinued UBRELVY 100 mg tablet Take 1 tablet by mouth once as needed. 2024 Discontinued atomoxetine (STRATTERA) 25 mg capsule Take 1 capsule (25 mg total) by mouth in the morning. 2024 Discontinued(S top Taking at Discharge) naproxen (NAPROSYN) 500 mg tablet Take 1 tablet (500 mg total) by mouth in the morning and 1 tablet (500 mg total) at noon and 1 tablet (500 mg total) in the evening. Take with meals. 024 2024 Discontinued metoprolol succinate XL (TOPROL XL) 25 mg 24 hr tablet Take 1 tablet (25 mg total) by mouth in the morning. 024 2024 Discontinued(S top Taking at Discharge) sertraline (ZOLOFT) 25 mg tablet Take 1 tablet (25 mg total) by mouth in the morning. 2024 Discontinued traZODone (DESYREL) 50 mg tablet Take 1 tablet (50 mg total) by mouth nightly. 2024 Discontinued benzonatate (TESSALON PERLES) 100 mg capsule Take 1 capsule (100 mg total) by mouth 3 (three) times a day as needed for cough. 21 capsule 025 2024 Discontinued(S top Taking at Discharge) ondansetron (ZOFRAN) 4 mg tablet Take 1 tablet (4 mg total) by mouth every 8 (eight) hours as needed for nausea or vomiting for up to 12 doses. 12 tablet 025 2024 Discontinued(S top Taking at Discharge) cyclobenzaprin e (FLEXERIL) 5 mg tablet 1 tablet (5 mg total). 025 2024 Discontinued azelaic acid (FINACEA) 15 % cream 025 2024 Discontinued escitalopram (LEXAPRO) 5 mg tabletIndicati ons:major depressive disorder,post traumatic stress disorder Take 1 tablet (5 mg total) by mouth in the morning. Indications: major depressive disorder, posttraumatic stress syndrome. 025 2024 Discontinued Active Problems Problem Noted Date Diagnosed Date Severe recurrent major depre ssion without psychotic features 03/14/2025 Dysthymia 03/14/2025 Posttraumatic stress disorder 03/14/2025 Contusion of right hand 03/14/2025 Feeling of incomplete bladder emptying Overview (09/03/2024): Has improved even off Myrbetriq which he can stop taking. Discussed addressing GI symptoms with primary and with his retirement assistant. 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 Referral to lead technician for the ovarian cyst. Previous ultrasound showed [...] spine care center. COVID-19 04/24/2021 08/16/2024 Encounters * This document contains information received from the source organization and may not represent a complete record from that organization. Date Type Department Care Team Description 03/09/2025 5:41 PM EDT - 03/13/2025 5:33 PM EDT Hospital Encounter [facility] - GEN 8 Acute [address] [place] [address] Sy Fajardo, Peggy Matthews MD Seizures ([facility]) (Primary Dx); Psychogenic nonepileptic seizure Discharge Disposition: [facility] 03/09/2025 Travel 02/16/2025 3:32 PM EDT - 02/16/2025 6:40 PM EDT Emergency [facility] - Emergency [address] [place] [address] Perry Vandasa Kp DO Chest pain, unspecified type (Primary Dx) Discharge Disposition: Home 02/16/2025 Travel from Last 3 Months Immunizations Immunization Administration Dates Next Due DTaP, Unspecified 01/01/2002 IPV 01/01/2002 Pneumococcal Polysaccharide 11/24/2022 Tdap 08/23/2023 Family History Medical History [...] drink = 0.6 oz pur e alcohol) Presentainities Answer Date Recorded In the past 12 months has [employer], oil, or water [employer] threatened to shut off services in your home? No 03/10/2025 AUDIT-C Answer Date Recorded Q1: How often do you have a drink containing alcohol? Never 03/10/2025 Q2: How many drinks containi ng alcohol do you have on a typical day when you are drinking? Patient does not drink Q3: How often do you have si x or more drinks on one occasion? Never 03/10/2025 PHQ-2 Answer Date Recorded Total Score 5 03/10/2025 PRAPARE - Transportation Answer Date Re corded In the past 12 months, has l ack of transportation kept you from medical appointments or from getting medications? No 02/25 In the past 12 months, has l ack of transportation kept you from meetings, work, or from getting things needed for daily living? No 03/10/2025 Housing Instability Answer Date Recorde d Are you worried or concerned that in the next two months you may not have stable housing that you own, rent or stay in as a part of a household? No 03/10/2025 Childcare Answer Date Recorded Childcare Unknown 03/12/2020 Employment Answer Date Recorded Employment Unknown 03/12/2020 Hunger Screening Answer Date Recorded Within the past 12 months we worried whether our food would run out before we got money to buy more. Never True 03/10/2025 Within the past 12 months th e food we bought just didn't last and we didn't have money to get more. Never True 03/10/2025 Purpose - Life Answer Date Recorded Purpose and direction in life Unknown Comments No Sex and Gender Information Value Date Recorded Sex Assigned at Female 10/12/2020 2:44 PM EDT Legal Sex Female 3:31 PM EDT Gender Identity Male 10/12/2020 2:44 PM EDT Sexual Orientation Not on file Last Filed Vital Signs Vital Sign Reading Time Taken Comments Blood Pressure 97/63 03/27/2025 7:29 AM EDT Pulse 59 03/27/2025 7:29 AM EDT Temperature 36.6 C (97.9 F) 03/27/2025 7:29 AM EDT Respiratory Rate 15 03/27/2025 7:29 AM EDT Oxygen Saturation 97% 03/13/2025 7:41 AM EDT Inhaled Oxygen Concentration - - Weight 45.3 kg (99 lb 13.9 oz) 03/13/2025 6:21 P M EDT Height 157.5 cm (5' 2.01 ) 03/13/2025 6:21 PM ED T Body Mass Index 18.26 03/13/2025 6:21 PM EDT Plan of Treatment Health Maintenance Due Date Last Done Comments Adult BMI Follow Up Plan 2019 Pap Smear 2022 Influenza Vaccine 02/25/2025 Depression Screening 03/10/2026 03/10/2025 Tobacco Screening 03/11/2026 03/11/2025 Adult BMI Screening 03/13/2026 03/13/2025 DTaP,Tdap and Td Vaccines (3 - Td or Tdap) 08/23/2033 08/23/2023, 01/01/2002 Goals Goal Patient Goal Type Associated Problems Recent Progress Patient-Stated? Author <enter goal here> General Yes Jeanna Damno, ROAD HOGGER OPERATOR Note: Evaluation of progress towards goal: home with family, self care goal General Yes Rosalee Chavez, RN Note: Evaluation of progress towards goal: Patients goal is to have a safe discharge. <enter goal here> General Yes DayManuel RN Note: Evaluation of progress towards goal: safe discharge Medical Devices Explanted Type Area Hris Manager Device Identifier Shelf Expiration Date Model / Serial / Lot Stent Uret 6fr 24cm Pgtl Crv Tpr Tip Bldr Mrk Lp Lg Inr Lum Rpl [id number] - [id number] Implanted:Qty: 1 on 11/24/2021 by Logan Mckeon MD at [facility] Explanted:Qty: 1 on 12/09/2021 by Logan Mckeon MD Stent Right: Ureter [employer] 08/18/2024 [id number] / / [id number] Procedures Procedure Name Priority Date/Time Associated Diagnosis Comments XR HAND RT 2 VWS Routine 03/24/2025 4:[address] BRAIN WO CONT STAT 03/21/2025 1:50 PM EDT XR FEMUR LT 2+ VIEWS Routine 03/21/2025 1:31 PM EDT URINALYSIS Routine 03/19/2025 11:30 AM EDT URINALYSIS STAT 03/17/2025 7:22 AM EDT FENTANYL, URINE QUALITATIVE Routine 03/17/2025 7:22 AM EDT URINE CULTURE Routine 03/17/2025 7:21 AM EDT BEDSIDE GLUCOSE Routine 03/16/2025 9:52 AM EDT PROLACTIN Add-On 03/16/2025 5:42 AM EDT LIPID PROFILE Routine 03/16/2025 5:42 AM EDT HEMOGLOBIN A1C Routine 03/16/2025 5:42 AM EDT BEDSIDE GLUCOSE Routine 03/14/2025 1:01 PM EDT BEDSIDE GLUCOSE Routine 03/12/2025 8:29 AM EDT URINALYSIS Routine 03/11/2025 8:27 PM EDT BEDSIDE GLUCOSE Routine 03/11/2025 12:29 PM EDT BASIC METABOLIC PANEL Routine 03/11/2025 6:43 AM EDT CBC (NO DIFF) Routine 03/11/2025 6:43 AM EDT EXTRA TUBES SST TOP Routine 03/11/2025 6 :42 AM EDT EXTRA TUBES Routine 03/11/2025 6:42 AM EDT ECG 12-LEAD Routine 03/10/2025 7:54 PM EDT EEG VIDEO MONITORING Routine 03/10/2025 1:22 PM EDT DISCONTINUE IN PROCESS EEG TESTING Routine 03/10/2025 1:22 PM EDT EEG VIDEO MONITORING Routine 03/10/2025 6:00 AM EDT BASIC METABOLIC PANEL STAT 03/10/2025 5:06 AM EDT CBC (NO DIFF) STAT 03/10/2025 5:06 AM EDT EEG Routine 03/09/2025 11:45 PM EDT PULSE OXIMETRY, SPOT Routine 03/09/2025 7:09 PM EDT COMPREHENSIVE METABOLIC PANEL STAT 03/09/2025 6:05 PM EDT CBC WITH AUTO DIFFERENTIAL STAT 03/09/2025 6:05 PM EDT TROP I, HIGH SENSITIVITY 1 HOUR STAT 02/16/2025 5:22 PM EDT XR CHEST 2 VWS STAT 02/16/2025 4:32 PM EDT SARS/FLU A+B/RSV BY NAAT/MOLECULAR (M4RT COLLECTION TUBE) STAT 02/16/2025 4:08 PM EDT TROPONIN I, HIGH SENSITIVITY 0 HOUR STAT 02/16/2025 4:07 PM EDT TROPONIN I, HIGH SENSITIVITY 0 HOUR STAT 02/16/2025 4:07 PM EDT MAGNESIUM STAT 02/16/2025 4:07 PM EDT LACTATE W/ REFLEX STAT 02/16/2025 4:0 7 PM EDT D-DIMER STAT 02/16/2025 4:07 PM EDT COMPREHENSIVE METABOLIC PANEL STAT 02/16/2025 4:07 PM EDT CBC WITH AUTO DIFFERENTIAL STAT 02/16/2025 4:07 PM EDT ECG 12-LEAD STAT 02/16/2025 3:20 PM EDT from Last 3 Months Results * X-ray hand right 2 views (03/24/2025 4:53 PM EDT) Anatomical Region Laterality Modality Upper Extremities, MSK, Hand Right Com puted Radiography 03/25/2025 8:32 AM EDT Narrative 03/25/2025 8:34 AM EDT XR HAND RT 2 VWS HISTORY: Swelling. Pain. COMPARISON: None FINDINGS: PA and lateral views obtained. No fracture or dislocation. There is no destructive osseous lesion. Joint spaces are well-maintained without degenerative changes. The osseous structures are well mineralized. IMPRESSION: Unremarkable radiographs of the hand. Finalized by Earnest Gongora MD on 03/25/2025 8:34 AM Procedure Note Earnest Gongora MD - 03/25/2025 XR HAND RT 2 VWS HISTORY: Swelling. Pain. COMPARISON: None FINDINGS: PA and lateral views obtained. No fracture or dislocation. There is no destructive osseous lesion.Joint spaces are well-maintained without degenerative changes. Theosseous structures are well mineralized. IMPRESSION: Unremarkable radiographs of the hand. Finalized by Earnest Gongora MD on 03/25/2025 8:34 AM Mana Snyder MD IMG DIAGNOSTIC IMAGING ORDER CABRERA Final Result * CT brain without contrast (03/21/2025 1:50 PM EDT) Anatomical Region Laterality Modality Neuro, Head, Head and Neck, Neuro Covera N/A Computed Tomography 03/21/2025 1:54 PM EDT Narrative 03/21/2025 1:57 PM EDT Exam: CT brain without contrast. CLINICAL HISTORY: Fall headache TECHNIQUE: CT brain without intravenous contrast. COMPARISON: CT 02/04/2024 FINDINGS: There is no evidence of acute [...] achievable. Finalized by Jean Marie Tanner on 03/21/2025 1:57 PM Procedure Note Jean Marie Tanner MD - 03/21/2025 Exam: CT brain without contrast. CLINICAL HISTORY: Fall headache TECHNIQUE: CT brain without intravenous contrast. COMPARISON: CT 02/04/2024 FINDINGS: There is no evidence of acute intracranial bleeding, mass effect, or CTevidence of acute ischemia/infarct. The midline structures are [...] scans at this facility use dose modulation, iterativereconstruction, and/or weight based dosing when appropriate to reduceradiation dose to as low as reasonably achievable. Finalized by Jean Marie Tanner on 03/21/2025 1:57 PM us Mana Snyder MD [facility] CT ORDERABLES Final Resu lt * X-ray femur left 2+ views (03/21/2025 1:31 PM EDT) Anatomical Region Laterality Modality Lower Extremities, MSK, Femur Left Co mputed Radiography 03/21/2025 1:34 PM EDT Narrative 03/21/2025 1:34 PM EDT EXAM: XR FEMUR LT 2+ VIEWS CLINICAL INFORMATION: pain. COMPARISON: None. FINDINGS: There is no evidence for an acute displaced fracture or malalignment of the femur. IMPRESSION: Normal AP and lateral views of the femur. Finalized by Akbar Portillo MD on 03/21/2025 1:34 PM Procedure Note Akbar Portillo MD - 03/21/2025 EXAM: XR FEMUR LT 2+ VIEWS CLINICAL INFORMATION: pain. COMPARISON: None. FINDINGS: There is no evidence for an acute displaced fracture or malalignment ofthe femur. IMPRESSION: Normal AP and lateral views of the femur. Finalized by Akbar Portillo MD on 03/21/2025 1:34 PM us Mana Snyder MD [facility] DIAGNOSTIC IMAGING ORDER CABRERA Final Result * (ABNORMAL) Urinalysis (03/19/2025 11:30 AM EDT) Only the most recent of3 resultswithin the time period is included. COLOR Yellow Yellow 03/19/2025 12:27 PM [facility] TURBIDITY Hazy(A) Clear 03/19/2025 12:27 PM [facility] SPECIFIC GRAVITY 1.025 1.003 - 1.035 03/19/2025 12:27 PM [facility] NITRITE Negative Negative 03/19/2025 12:27 PM [facility] PH,URINE 6.0 5.0 - 8.5 03/19/2025 12:27 PM [facility] LEUKOCYTE ESTERASE Negative Negative 03/19/2025 12:27 PM [facility] PROTEIN Trace(A) Negative 03/19/2025 12:27 PM [facility] KETONES (URINE) 15 mg/dL(A) Negative 03/19/20 12:27 PM [facility] UROBILINOGEN 1.0 eu/dL 0.2 eu/dL, 1.0 eu/dL 03/19/2025 12:27 PM [facility] BILIRUBIN (URINE) Small(A) Negative 03/19/2025 12:27 PM [facility] Comment:Not confirmed. Inter pret positive results with caution. BLOOD/HGB Negative Negative 03/19/2025 12:27 PM [facility] CA OXALATE CRYSTALS Present(A) None 03/19/2025 12:27 PM [facility] R.B.CELLS 1 0 - 5 03/19/2025 12:27 PM [facility] SQUAMOUS EPITHELIUM 5 0 - 5 03/19/2025 12:27 PM [facility] W.B.CELLS 4 0 - 5 03/19/2025 12:27 PM [facility] GLUCOSE (URINE) Negative Negative, 250 mg/dL 03/19/2025 12:27 PM [facility] Urine Urine / Unknown Collection / Unknown 03/19/2025 11:30 AM EDT 03/19/2025 11:55 AM EDT us Ainsley Gordon [facility] URINE ORDERABLES Final Re sult [facility] [address] [place] [address], [place] * Fentanyl, Urine Qualitative (03/17/2025 7:22 AM EDT) FENTANYL, URINE QUAL. Negative Negative 03/17/2025 7:52 AM EDT [facility] Urine Urine / Unknown Collection / Unknown 03/17/2025 7:22 AM EDT 03/17/2025 7:22 AM EDT [facility] - 03/17/2025 7:52 AM EDT Fentanyl screening cutoff = 5ng/ml This report is intended for use in clinical monitoring or management of patients. us Christiano Giron MD URINE ORDERABLES Final Result [facility] [address] [place] [address], [place] * Urine Culture Urine, Clean Catch Midstream (03/17/2025 7:21 AM EDT) CULTURE RESULTS <10,000 ORGANISMS/m L NORMAL URO GENITAL ZANDER 03/18/2025 6:51 AM EDT [facility] Urine Urine specimen collection, clean catch / Unknown 03/17/2025 7:21 AM EDT 03/17/2025 7:21 AM EDT us Therese Mcclain [facility] MICROBIOLOGY - GENERAL ORDERABLES Final Result [facility] [address] [place] [address], * Bedside Glucose *Place/Obtain serum glucose if >500 per glucometer. (03/16/2025 9:52 AM EDT) Only the most recent of4 resultswithin the time period is included. Bedside Glucose (POC) 123 mg/dL 03/16/2025 9:57 AM EDT [facility] arterial/capilla ry 03/16/2025 9:52 AM EDT 03/16/2025 9:57 AM EDT us Christiano Giron MD POINT OF CARE TEST ORDERABLES Fi nal Result [facility] [address] [place] [address], [place] * Prolactin (03/16/2025 5:42 AM EDT) PROLACTIN 10.2 ng/mL 03/16/2025 2:12 PM EDT [facility] Blood Venous blood / Unknown Venipuncture / Unknown 03/16/2025 5:42 AM EDT 03/16/2025 6:08 AM EDT us Jean Marie Bloom MD LAB BLOOD ORDERABLES Final Res ult [facility] [address] [place] [address], * Hemoglobin A1c (03/16/2025 5:42 AM EDT) HEMOGLOBIN A1C 5.1 4.4 - 5.6 % 03/16/2025 7:14 AM EDT [facility] Comment: ADA Guidelines Result HgbA1c Normal : less than 5.7 % Prediabetes : 5.7 % to 6.4 % Diabetes : > 6.4 % Use with caution in patients with abnormal hemoglobin variants as the half-life of red blood cells and in vivo glycation rates are affected. EST. AVERAGE GLUCOSE 100 mg/dL 03/16/2025 7:14 AM EDT [facility] Blood Venous blood / Unknown Venipuncture / Unknown 03/16/2025 5:42 AM EDT 03/16/2025 6:08 AM EDT us Christiano Giron MD LAB BLOOD ORDERABLES Final Resul t [facility] [address] [place] [address], [place] [phone] * Lipid profile (03/16/2025 5:42 AM EDT) CHOLESTEROL 159 150 - 200 mg/dL 03/16/2025 11:45 AM EDT [facility] TRIGLYCERIDE 70 27 - 150 mg/dL 03/16/2025 11:45 AM EDT [facility] HDL CHOLESTEROL 42 >39 mg/dL 11:45 AM EDT [facility] Comment: HDL <40 mg/dL - High Risk HDL > or = 40mg/dL- Desirable HDL >60 mg/dL - Negative Risk LDL (CALC) 103 <130 mg/dL 03/16/2025 11:45 AM EDT [facility] Comment: LDL <100 mg/dL - Desirable LDL >160 mg/dL - High Risk CHOLESTEROL:HDL 3.8 11:45 AM EDT [facility] VERY LOW LIPOPROTEIN 14 0 - 30 mg/dL 03/16/2025 11:45 AM EDT [facility] Blood Venous blood / Unknown Venipuncture / Unknown 03/16/2025 5:42 AM EDT 03/16/2025 6:08 AM EDT us Christiano Giron MD LAB BLOOD ORDERABLES Final Resul t [facility] [address] [place] [address], * CBC without diff (03/11/2025 6:43 AM EDT) Only the most recent of2 resultswithin the time period is included. WBC 6.7 4 - 11 x10E9/L 03/11/2025 7:12 AM EDT [facility] RBC Count 4.40 4.1 - 5.2 X10E12/L 03/11/2025 7:12 AM EDT [facility] Hemoglobin 14.0 12 - 15.5 g/dL 03/11/2025 7:12 AM EDT [facility] Hematocrit 39.6 35 - 47 % 03/11/2025 7:12 AM EDT [facility] MCV 90 fL 03/11/2025 7:12 AM EDT [facility] MCH 31.7 pg 03/11/2025 7:12 AM EDT [facility] MCHC 35.3 g/dL 03/11/2025 7:12 AM EDT [facility] RDW 13.0 % 03/11/2025 7:12 AM EDT [facility] Platelet Count 197 150 - 450 X10E9/L 03/11/2025 7:12 AM EDT [facility] MPV 7.9 fL 03/11/2025 7:12 AM EDT [facility] Blood Venous blood / Unknown Venipuncture / Unknown 03/11/2025 6:43 AM EDT 03/11/2025 6:55 AM EDT us Brenda Pérez MD LAB BLOOD ORDERABLES Final Result [facility] [address] [place] [address], * Basic Metabolic Panel (03/11/2025 6:43 AM EDT) Only the most recent of2 resultswithin the time period is included. SODIUM 139 134 - 146 mmol/L 03/11/2025 7:31 AM EDT [facility] POTASSIUM 4.1 3.5 - 5.0 mmol/L 03/11/2025 7:31 AM EDT [facility] CHLORIDE 103 98 - 109 mmol/L 03/11/2025 7:31 AM EDT [facility] CARBON DIOXIDE 25 22 - 32 mmol/L 03/11/2025 7:31 AM EDT [facility] ANION GAP 11 mmol/L 03/11/2025 7:31 AM EDT [facility] BLOOD UREA NITROGEN 19 5 - 23 mg/dL 03/11/2025 7:31 AM EDT [facility] [facility] CREATININE 0.93 0.60 - 1.00 mg/dL 03/11/2025 7:31 AM EDT [facility] Comment:METHOD TRACEABLE TO IDIL STANDARD GLUCOSE 72 65 - 99 mg/dL 03/11/2025 7:31 AM EDT [facility] CALCIUM 9.1 8.5 - 10.5 mg/dL 03/11/2025 7:31 AM EDT [facility] EGFR Non-Race Dependent 89 >=60 ml/min/1.7 3sq.m 03/11/2025 7:31 AM EDT [facility] Comment: Reported eGFR is based on the CKD-EPI 2020 equation that does not use a race coefficient. Blood Venous blood / Unknown Venipuncture / Unknown 03/11/2025 6:43 AM EDT 03/11/2025 6:55 AM EDT Brenda Pérez MD LAB BLOOD ORDERABLES Final Result [facility] [address] [place] [address], * SST TOP (03/11/2025 6:42 AM EDT) Extra Tube Auto Resulted 03/11/2025 8:02 AM EDT [facility] Blood Venous blood / Unknown 03/11/2025 6:42 AM EDT 03/11/2025 6:55 AM EDT Peggy Gee MD LAB BLOOD ORDERABLES Final Resul t [facility] [address] [place] [address], * ECG 12 lead (03/10/2025 7:54 PM EDT) Only the most recent of2 resultswithin the time period is included. 03/10/2025 7:54 PM EDT Narrative TRACEMASTERVUE - 03/13/2025 12:21 PM EDT us Blanca Rapp MD ECG ORDERABLES Final Result JAYNEMASTERVUE * EEG VIDEO MONITORING IN PROGRESS (03/10/2025 1:22 PM EDT) Narrative MANUALLY TRANSCRIBED RESULTS - 03/11/2025 9:08 AM EDT Images from the original result were not included. [facility] VIDEO-EEG REPORT EEG Service Date: 6:05 to 11:47 on 03/10/25 Duration of Study: 5 hours and 41 minutes Date of Report: 03/11/25 History: Karis Kovacs is a 24 y.o. adult with a history of seizure-like activity who is undergoing an EEG to evaluate for seizures and underlying epileptiform activity. Centrally acting Medications: Briviact, Clobazam, Metoprolol, Topiramate, Lamotrigine, Zonisamide Level of Consciousness: Awake and asleep. Technical description: This EEG was acquired with electrodes placed according to the 10-20 electrode placement system. A single EKG channel was recorded for cardiac rhythm monitoring. Video was recorded simultaneously. Quality of recording was fair. Entire study along with the video for selected events was reviewed. EEG Report: Occipital dominant rhythm was seen as 10 Hz sinusoidal activity with amplitude of 25-75 V. This activity was symmetric, and reactive to eye closure. Most of the background was comprised of intermittent alpha rhythms admixed with excessive fronto-central beta with amplitude of 40-70uV. Focal slowing was not seen. Drowsiness and sleep states were seen, manifested by disappearance of eye blinks and EMG artifact, drop-off in PDR, appearance of vertex sharp waves, sleep spindles, K-complexes, and positive occipital sharp transients of sleep (POSTS), consistent with stages N1 and N2 of non-REM sleep. Epochs of N3 and REM sleep were also recorded. Interictal/Ictal epileptiform abnormalities: None Events: None EEG Classification: This EEG was obtained while awake and asleep, and is normal. Clinical Correlation: This is a normal EEG recording. No epileptiform discharges or lateralizing signs were seen. Absence of epileptiform discharges does not exclude the diagnosis of epilepsy. There is evidence to suggest the use of sedative medications. Carina Garcia MD [facility] Brenda Pérez MD NEUROLOGY ORDERABLES Final Result MANUALLY TRANSCRIBED RESULTS * DISCONTINUE IN PROCESS EEG TESTING (03/10/2025 1:22 PM EDT) Jud Jarrell MD NEUROLOGY ORDERABLES Final Resul t * EEG VIDEO MONITORING IN PROGRESS (03/10/2025 6:00 AM EDT) Narrative MANUALLY TRANSCRIBED RESULTS - 03/10/2025 10:34 AM EDT Images from the original result were not included. [facility] VIDEO-EEG REPORT EEG Service Date: 23:48 to 6:05 (03/09/25 to 03/10/25) Duration of Study: 4 hours and 30 minutes Date of Report: 03/10/25 History: Karis Kovacs is a 24 y.o. adult with a history of seizure-like activity who is undergoing an EEG to evaluate for seizures and underlying epileptiform activity. Centrally acting Medications: Briviact, Clobazam, Metoprolol, Topiramate, Lamotrigine, Zonisamide Level of Consciousness: Awake and asleep. Technical description: This EEG was acquired with electrodes placed according to the 10-20 electrode placement system. A single EKG channel was recorded for cardiac rhythm monitoring. Video was recorded simultaneously. Quality of recording was fair. Entire study along with the video for selected events was reviewed. EEG Report: Occipital dominant rhythm was seen as 10 Hz sinusoidal activity with amplitude of 25-75 V. This activity was symmetric, and reactive to eye closure. Most of the background was comprised of intermittent alpha rhythms admixed with excessive fronto-central beta with amplitude of 40-70uV. Focal slowing was not seen. Drowsiness and sleep states were seen, manifested by disappearance of eye blinks and EMG artifact, drop-off in PDR, appearance of vertex sharp waves, sleep spindles, K-complexes, and positive occipital sharp transients of sleep (POSTS), consistent with stages N1 and N2 of non-REM sleep. Epochs of N3 and REM sleep were also recorded. Interictal/Ictal epileptiform abnormalities: None Events: None EEG Classification: This EEG was obtained while awake and asleep, and is normal. Clinical Correlation: This is a normal EEG recording. No epileptiform discharges or lateralizing signs were seen. Absence of epileptiform discharges does not exclude the diagnosis of epilepsy. There is evidence to suggest the use of sedative medications. Carina Garcia MD [facility] us Brenda Pérez MD NEUROLOGY ORDERABLES Final Result MANUALLY TRANSCRIBED RESULTS * EEG (03/09/2025 11:45 PM EDT) Narrative MANUALLY TRANSCRIBED RESULTS - 03/10/2025 10:25 AM EDT Images from the original result were not included. [facility] VIDEO-EEG REPORT EEG Service Date: 03/09/25 Duration of Study: 30 minutes Date of Report: 03/10/25 History: Karis Kovacs is a 24 y.o. adult with a history of seizure-like activity who is undergoing an EEG to evaluate for seizures and underlying epileptiform activity. Centrally acting Medications: Level of Consciousness: Awake and asleep. Technical description: This EEG was acquired with electrodes placed according to the 10-20 electrode placement system. A single EKG channel was recorded for cardiac rhythm monitoring. Video was recorded simultaneously. Quality of recording was fair. Entire study along with the video for selected events was reviewed. EEG Report: Occipital dominant rhythm was seen as 10 Hz sinusoidal activity with amplitude of 25-75 V. This activity was symmetric, and reactive to eye closure. Most of the background was comprised of intermittent alpha rhythms admixed with low amplitude fast rhythms.. Focal slowing was not seen. Drowsiness and sleep states were seen, manifested by disappearance of eye blinks and EMG artifact, drop-off in PDR, appearance of vertex sharp waves, sleep spindles, K-complexes, and positive occipital sharp transients of sleep (POSTS), consistent with stages N1 and N2 of non-REM sleep. Deeper stages of sleep were not recorded.. Activation Procedures: Photic stimulation was performed, and did not elicit any abnormal responses. and Hyperventilation elicited generalized rhythmic slowing. Interictal/Ictal epileptiform abnormalities: None Events: None EEG Classification: This EEG was obtained while awake and asleep, and is normal. Clinical Correlation: This is a normal EEG recording. No epileptiform discharges or lateralizing signs were seen. Absence of epileptiform discharges does not exclude the diagnosis of epilepsy. Carina Garcia MD [facility] us Brenda Pérez MD NEUROLOGY ORDERABLES Final Result MANUALLY TRANSCRIBED RESULTS * CBC auto differential (03/09/2025 6:05 PM EDT) Only the most recent of2 resultswithin the time period is included. WBC 8.9 4 - 11 x10E9/L 03/09/2025 6:38 PM EDT [facility] RBC Count 4.69 4.1 - 5.2 X10E12/L 03/09/2025 6:38 PM EDT [facility] Hemoglobin 14.4 12 - 15.5 g/dL 03/09/2025 6:38 PM EDT [facility] Hematocrit 42.4 35 - 47 % 03/09/2025 6:38 PM EDT [facility] MCV 91 fL 03/09/2025 6:38 PM EDT [facility] MCH 30.7 pg 03/09/2025 6:38 PM EDT [facility] MCHC 33.9 g/dL 03/09/2025 6:38 PM EDT [facility] RDW 12.9 % 03/09/2025 6:38 PM EDT [facility] Platelet Count 253 150 - 450 X10E9/L 03/09/2025 6:38 PM EDT [facility] MPV 8.3 fL 03/09/2025 6:38 PM EDT [facility] Neutrophils % 71.5 % 03/09/2025 6:38 PM EDT [facility] Lymphocytes % 20.7 % 03/09/2025 6:38 PM EDT [facility] Monocytes % 7.5 % 03/09/2025 6:38 PM EDT [facility] Eosinophils % 0.0 % 03/09/2025 6:38 PM EDT [facility] Basophils % 0.3 % 03/09/2025 6:38 PM EDT [facility] Neutrophils Absolute (A) 6.3 1.5 - 6.6 10*3/uL 03/09/2025 6:38 PM EDT [facility] Lymphocytes Absolute 1.8 1.0 - 3.5 10*3/uL 03/09/2025 6:38 PM EDT [facility] Monocytes Absolute 0.7 0.0 - 0.9 10*3/uL 03/09/2025 6:38 PM EDT [facility] Eosinophils Absolute 0.0 0.0 - 0.4 10*3/uL 03/09/2025 6:38 PM EDT [facility] Basophils Absolute 0.0 0.0 - 0.2 10*3/uL 03/09/2025 6:38 PM EDT [facility] Differential Type AUTOMATED DIFFERENTIAL 03/09/2025 6:38 PM EDT [facility] Blood Venous blood / Unknown 03/09/2025 6:05 PM EDT 03/09/2025 6:14 PM EDT Tammy Park MD LAB BLOOD ORDERABLES Final Res ult [facility] [address] [place] [address], [place] [phone] * (ABNORMAL) Comprehensive metabolic panel (03/09/2025 6:05 PM EDT) Only the most recent of2 resultswithin the time period is included. SODIUM 143 134 - 146 mmol/L 03/09/2025 6:41 PM [facility] POTASSIUM 4.5 3.5 - 5.0 mmol/L 03/09/2025 6:41 PM [facility] Comment:R-Specimen moderatel y hemolyzed, results increased CHLORIDE 108 98 - 109 mmol/L 03/09/2025 6:41 PM [facility] CARBON DIOXIDE 25 22 - 32 mmol/L 03/09/2025 6:41 PM [facility] ANION GAP 10 mmol/L 03/09/2025 6:41 PM [facility] BLOOD UREA NITROGEN 8 5 - 23 mg/dL 03/09/2025 6:41 PM [facility] CREATININE 0.76 0.60 - 1.00 mg/dL 03/09/2025 6:41 PM [facility] Comment:METHOD TRACEABLE TO IDIL STANDARD GLUCOSE 101(H) 65 - 99 mg/dL 03/09/2025 6:41 PM [facility] CALCIUM 9.0 8.5 - 10.5 mg/dL 03/09/2025 6:41 PM [facility] TOTAL PROTEIN 7.4 6.0 - 8.0 g/dL 03/09/2025 6:41 PM [facility] ALBUMIN 4.4 3.2 - 5.3 g/dL 03/09/2025 6:41 PM [facility] ALKALINE PHOSPHATASE 65 39 - 130 U/L 03/09/2025 6:41 PM [facility] AST 28 <=41 U/L 03/09/2025 6:41 PM [facility] ALT 9 <=31 U/L 03/09/2025 6:41 PM [facility] BILIRUBIN,TOTAL 0.5 0.3 - 1.2 mg/dL 03/09/2025 6:41 PM [facility] EGFR Non-Race Dependent >90 >=60 ml/min/1.7 3sq.m 03/09/2025 6:41 PM [facility] Comment: Reported eGFR is based on the CKD-EPI 2020 equation that does not use a race coefficient. Blood Venous blood / Unknown 03/09/2025 6:05 PM EDT 03/09/2025 6:14 PM EDT Tammy Park MD LAB BLOOD ORDERABLES Final Res ult [facility] [address] [place] [address], [place] [phone] * Troponin I, High Sensitivity 1 Hour (02/16/2025 5:22 PM EDT) TROPONIN I, HIGH SENSITIVITY 3 <16 ng/L 02/16/2025 6:12 PM EDT [facility] Blood Venous blood / Unknown Venipuncture / Unknown 02/16/2025 5:22 PM EDT 02/16/2025 5:24 PM EDT Emy Melissa Denis [facility] BLOOD ORDERABLES F inal Result [facility] [address] [place] [address], [place] * X-ray chest 2 views (02/16/2025 4:32 PM EDT) Anatomical Region Laterality Modality Body, Chest N/A Computed Radiogr aphy 02/16/2025 4:33 PM EDT Narrative 02/16/2025 4:34 PM EDT PROCEDURE: CHEST, TWO VIEWS (PA and Lateral), 02/16/2025 4:31 PM CLINICAL INDICATION: chest pain, passing out COMPARISON: None IMPRESSION: 1. No acute cardiopulmonary disease. 2. Loop recorder in the anterior left chest wall. Finalized by Rojelio Marcum MD on 02/16/2025 4:34 PM Procedure Note Rojelio Marcum MD - 02/16/2025 PROCEDURE: CHEST, TWO VIEWS (PA and Lateral), 02/16/2025 4:31 PM CLINICAL INDICATION: chest pain, passing out COMPARISON: None IMPRESSION: 1. No acute cardiopulmonary disease. 2. Loop recorder in the anterior left chest wall. Finalized by Rojelio Marcum MD on 02/16/2025 4:34 PM Emy Denis [facility] IMG DIAGNOSTIC IMAGING ORDERABLES Final Result * SARS/FLU A+B/RSV by NAAT/Molecular (M4RT Collection Tube) (02/16/2025 4:08 PM EDT) Pathologist [facility] FLU A PCR Negative Negative 02/16/2025 5:01 PM EDT [facility] FLU B PCR Negative Negative 02/16/2025 5:01 PM EDT [facility] RSV BY PCR Negative Negative 02/16/2025 5:01 PM EDT [facility] SARS COV 2 BY PCR Not Detected Not Detected 02/16/2025 5:01 PM EDT [facility] Swab Nasopharyngeal structure / Unknown 02/16/2025 4:08 PM EDT 02/16/2025 4:14 PM EDT Narrative [facility] - 02/16/2025 5:01 PM EDT The Xpert Xpress SARS-CoV-2/Flu/RSV Plus test is a rapid, [...] operators who are performing tests using either [employer] or [employer] systems and is limited to laboratories that [...] inhibition unable to be resolved with specimen repeat. Fact Sheet for Healthcare Providers: https://www.fda.gov/media/534566/download Fact Sheet for Patients: https://www.fda.gov/media/232648/download Emy Denis [facility] - GENERAL ORDERABLES Final Result Performing Organization Address City/[facility]/ZIP Co de Phone Number [address] [place] [address], [place] * Troponin I, High Sensitivity 0 Hour (02/16/2025 4:07 PM EDT) [facility] TROPONIN I, HIGH SENSITIVITY 3 <16 ng/L 02/16/2025 4:42 PM EDT [facility] Blood Venous blood / Unknown Venipuncture / Unknown 02/16/2025 4:07 PM EDT 02/16/2025 4:12 PM EDT Emy Denis [facility] BLOOD ORDERABLES F inal Result Performing Organization Address City/[facility]/ZIP Co de Phone Number [address] [place] [address], [place] * Lactate w/ Reflex (02/16/2025 4:07 PM EDT) LACTATE W/REFLEX 0.8 0.4 - 2.0 mmol/L 02/16/2025 4:33 PM EDT [facility] Blood Venous blood / Unknown Venipuncture / Unknown 02/16/2025 4:07 PM EDT 02/16/2025 4:14 PM EDT Narrative [facility] - 02/16/2025 4:33 PM EDT Result did not trigger repeat Lactate, re-order if needed. Emy Denis [facility] BLOOD ORDERABLES F inal Result Performing Organization Address [facility] Co de Phone Number [address] [place] [address], [place] * D-Dimer (02/16/2025 4:07 PM EDT) D DIMER <150 1 - 255 ug/mL 02/16/2025 4:26 PM EDT [facility] Comment:Results <255 ng/mL D DU: The presensence of a VTE can safely be excluded with a negative D-Dimer result and Wells score. A negative result doesn't exclude the possibility of DIC. The test should be repeated along with other diagnostic tests if the patient's symptoms persist or worsen. Blood Venous blood / Unknown Venipuncture / Unknown 02/16/2025 4:07 PM EDT 02/16/2025 4:11 PM EDT Emy Denis [facility] BLOOD ORDERABLES F inal Result Performing Organization Address City/[facility] Co de Phone Number [address] [place] [address], [place] * Magnesium (02/16/2025 4:07 PM EDT) MAGNESIUM 2.0 1.8 - 2.6 mg/dL 02/16/2025 4:34 PM EDT [facility] Blood Venous blood / Unknown Venipuncture / Unknown 02/16/2025 4:07 PM EDT 02/16/2025 4:12 PM EDT us Emydorian Denis [facility] BLOOD ORDERABLES F inal Result [facility] [address] [facility] [place] [address], [place] from Last 3 Months Insurance [place] [employer] Advance Directives * Full Code (Latest Code Status on File) Date Activated Date Inactivated Comments 03/14/2025 1:24 AM 03/27/2025 4:13 PM * Full Code Date Activated Date Inactivated Comments 03/09/2025 7:09 PM 03/13/2025 5:38 PM * Full Code Date Activated Date Inactivated Comments 11/25/2023 2:59 PM 12/01/2023 1:25 AM * Full Code Date Activated Date Inactivated Comments 08/26/2023 2:31 AM 08/26/2023 4:26 PM * Full Code Date Activated Date Inactivated Comments 08/25/2023 6:03 PM 08/26/2023 12:43 AM Care Teams Clinical Nursing Intern Relationship Specialty Start Date End Date Eric Isbell DO [address] [place] [address] PCP - General Family Medicine 08/16/24
--- OUTSIDE RECORDS SUMMARY | 2025-03-29 13:19 | XMS_ITS | Encounter Summary ---
Author Organization [facility] Address [address] [place] [address] Care Team Providers Care Channel Installer Name Role Phone Eric Isbell DO Primary Care Provider [phone] Finn Gracia MD Unavailable Reason for Referral * Consultation (Orders Only, Do Not Manually Assign) (Routine) - Closed Specialty Diagnoses / Procedures Referred By Contac t Referred To Contact Neurology Diagnoses Seizure (CMS/HCC) Pseudoseizure Eric Isbell DO [address] [place] [address] Phone: tel: fax: [facility] Floor 1 In Home Caregiver [address] [place] [address] Phone: tel: fax: Referral ID Status Reason Start Date Expiration Date V isits Requested Visits Authorized [id number] Closed Specialty Services Required 09/23/2021 03/25/2023 1 1 Encounter Details Date Type Department Care Team (Latest Contact Info) Description 09/23/2021 Order Landscape Specialist [facility] Floor 1 In Home Caregiver [address] [place] [address] Eric Isbell DO [address] [place] [address] Seizure (CMS/HCC) (Primary Dx); Pseudoseizure Social History Tobacco Use Types Packs/Day Years Used Date Smoking Tobacco: Never Assessed Comments Unknown Sex and Gender Information Value Date Recorded Sex Assigned at Female 09/16/2022 10:48 AM EDT Legal Sex Female 4:41 PM EDT Gender Identity Transgender Male 09/16/2022 10:4 8 AM EDT Sexual Orientation Not on file documented as of this encounter Plan of Treatment Scheduled Referrals Name Type Priority Associated Diagnoses Orde r Schedule Referral to Neurology Adult Outpatient Referral Routine Seizure (CMS/HCC) Pseudoseizure Ordered: 09/23/2021 documented as of this encounter Visit Diagnoses Diagnosis Seizure (CMS/HCC)- Primary Other convulsions Pseudoseizure Other convulsions documented in this encounter Care Teams Channel Installer Relationship Specialty Start Date End Date Eric Isbell DO [address] [place] [id number] PCP - General Family Medicine 04/02/22 Finn Gracia MD [address] [address] Neurology 04/02/22 documented as of this encounter
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
--- OUTSIDE RECORDS SUMMARY | 2025-03-29 13:19 | XMS_ITS | Encounter Summary ---
Author Organization [facility] Address [address] [place] [address] Care Team Providers Care Braiding Machine Operator Name Role Phone House Sr., Eric BUCKLEY Primary Care Provider + Micaela Randle RD Unavailable [phone] Source Comments In the event this information is protected by the Federal Confidentiality of Alcohol and Drug AbusePatient Records regulations: The Federal rules restrict any use of the information to criminally investigate or prosecute any alcohol or drug abuse patient.[facility] Encounter Details Date Type Department Care Team (Late st Contact Info) Description 04/30/2024 Patient Msg Endocrinology [address], [place] [id number] Provider, Cc Endocrine Psychology Welcome Group Scheduling [...] is lower risk 6 04/16/2024 Data from: https://www.neighborhoodatlas.medicine.[facility]/. Last address used for calculation [address] 04/16/2024 Comments No Sex and Gender [...] 3:00 PM EST Office Visit Endocrinology [address] [place] [address] Gale Kinney, ROSA.IRRIGATION SUPERVISOR [address] [place] [address] 6 mo follow up documented as of this encounter Visit Diagnoses Not on filedocumented in this encounter Care Teams Braiding Machine Operator Relationship Specialty Start Date End Date Eric Isbell Sr., DO PCP - General Family Medicine 03/29/[address], [place] [address] Registered Dietitian Nutrition 02/19/25 documented as of this encounter
--- OUTSIDE RECORDS SUMMARY | 2025-03-29 13:19 | XMS_ITS | Encounter Summary ---
Author Organization [facility] Address [address] [place] [address] Care Team Providers Care Hotel Supplies Salesperson Name Role Phone House Sr., Eric BUCKLEY Primary Care Provider + Micaela Randle RD Unavailable [phone] Source Comments In the event this information is protected by the Federal Confidentiality of Alcohol and Drug AbusePatient Records regulations: The Federal rules restrict any use of the information to criminally investigate or prosecute any alcohol or drug abuse patient.[facility] Encounter Details Date Type Department Care Team (Late st Contact Info) Description 02/22/2025 Patient Msg General Surgery [facility] [address] [place] [address] Provider, Ccf Follow up Social History Tobacco Use Types Packs/Day Years Used Date Smoking Tobacco: Never Smokeless Tobacco: Never Alcohol Use Standard Drinks/Week Comments Not Currently 0 (1 standard drink = 0.6 oz pur e alcohol) Area Deprivation Index Answer Date Jem rded National Score (1-100), lower number is lower ri 76 04/16/2024 State Score (1-10), lower number is lower risk 6 04/16/2024 Data from: https://www.neighborhoodatlas.medicine.[facility]/. Last address used for [...] 3:00 PM EST Office Visit Endocrinology [address] [place] [address] Gale Kinney, ROSA.POOL NURSE [address] [place] [address] 6 mo follow up documented as of this encounter Visit Diagnoses Not on filedocumented in this encounter Care Teams Hotel Supplies Salesperson Relationship Specialty Start Date End Date Eric Isbell Sr., DO PCP - General Family Medicine 03/29/[address], [place] [address] Registered Dietitian Nutrition 02/19/25 documented as of this encounter
--- OUTSIDE RECORDS SUMMARY | 2025-03-29 13:19 | XMS_ITS | Encounter Summary ---
Author Organization [facility] Address [address] [place] [address] Care Team Providers Care Toe Trimmer Name Role Phone House Sr., Eric BUCKLEY Primary Care Provider + Micaela Randle RD Unavailable [phone] Source Comments In the event this information is protected by the Federal Confidentiality of Alcohol and Drug AbusePatient Records regulations: The Federal rules restrict any use of the information to criminally investigate or prosecute any alcohol or drug abuse patient.[facility] Encounter Details Date Type Department Care Team (Late st Contact Info) Description 07/18/2024 Patient Msg Diabetic Education [facility] [address] [place] [id number] Provider, Derrick Endo Dietitian Social History Tobacco Use Types Packs/Day Years Used Date Smoking Tobacco: Never Smokeless Tobacco: Never Alcohol Use Standard Drinks/Week Comments Not Currently 0 (1 standard drink = 0.6 oz pur e alcohol) Area Deprivation Index Answer Date Jem rded National Score (1-100), lower number is lower ri 76 04/16/2024 State Score (1-10), lower number is lower risk 6 04/16/2024 Data from: https://www.neighborhoodatlas.medicine.[facility]/. Last address used for calculation [address] [...] 3:00 PM EST Office Visit Endocrinology [address] [place] [address] Gale Kinney, ANODIC OPERATOR.HUMAN RESOURCES ADMINISTRATOR [address] [place] [address] 6 mo follow up documented as of this encounter Visit Diagnoses Not on filedocumented in this encounter Care Teams Toe Trimmer Relationship Specialty Start Date End Date Eric Isbell Sr., DO PCP - General Family Medicine 03/29/[address] [place] [address] Registered Dietitian Nutrition 02/19/25 documented as of this encounter
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
--- OUTSIDE RECORDS SUMMARY | 2025-03-29 13:19 | XMS_ITS | Encounter Summary ---
Author Organization [employer] Address [id number] [address] [place] [address] Care Team Providers Care Material Requirements Worker Name Role Phone Eric Isbell DO Primary Care Provider [phone] Encounter Details Date Type Department Care Team ([facility] Contact Info) Description 09/07[facility]2023 [facility] [address] [place], [place] [phone] Rosalee Tse PA [facility] [place] [address] Social History Tobacco Use Types Packs/Day Years Used Date Smoking Tobacco: Never Smokeless Tobacco: Never Alcohol Use Standard Drinks/Week Comments Not Currently 0 (1 standard drink = 0.6 oz pur e alcohol) [facility] Utilities Answer Date Recorded In the past 12 months has [employer], [employer], oil, or water [employer] threatened to shut off services in your [...] EDT Requested that it be pushed to [facility] PACS documented in this encounter Plan of [...] documented as of this encounter Care Teams Material Requirements Worker Relationship Specialty Start Date End Date Eric Isbell DO [address] [place] [address] PCP - General Family Medicine 08/16/24 documented as of this encounter
--- OUTSIDE RECORDS SUMMARY | 2025-03-29 13:19 | XMS_ITS | Encounter Summary ---
Author Organization [employer] Address [id number] [address] [place] [address] Care Team Providers Care Carrot Grader Inspector Name Role Phone Eric Isbell DO Primary Care Provider Encounter Details Date Type Department Care Team ([facility] st Contact Info) Description 11/04/2021 [facility]phone [facility] [address] [place] [phone] Ana Cat CNA Social History Tobacco Use [...] documented as of this encounter Care Teams Carrot Grader Inspector Relationship Specialty Start Date End Date Eric Isbell DO [address] [place] [address] PCP - General Family Medicine 08/16/24 documented as of this encounter
--- OUTSIDE RECORDS SUMMARY | 2025-03-29 13:19 | XMS_ITS | Encounter Summary ---
Author Organization [employer] Address [id number] [address] [place] [address] Care Team Providers Care Cellular Tower Climber Name Role Phone Eric Isbell DO Primary Care Provider [phone] Reason for Visit * Reason Onset Date Comments reschd appt 04/27/2022 Encounter Details Date Type Department Care Team (Late st Contact Info) Description 04/27/[address] [facility] [address] [place] [address] Chika [place] reschd appt Social [...] documented as of this encounter Care Teams Cellular Tower Climber Relationship Specialty [place] [address] [place] [address] PCP - General Family Medicine 08/16/24 documented as of this encounter
--- OUTSIDE RECORDS SUMMARY | 2025-03-29 13:19 | XMS_ITS | Encounter Summary ---
Author Organization [facility] Address [address] [place] [address] Care Team Providers Care Plasma Table Operator Name Role Phone House Sr., Eric BUCKLEY Primary Care Provider + Micaela Randle RD Unavailable [phone] Source Comments In the event this information is protected by the Federal Confidentiality of Alcohol and Drug AbusePatient Records regulations: The Federal rules restrict any use of the information to criminally investigate or prosecute any alcohol or drug abuse patient.[facility] Encounter Details Date Type Department Care Team (Late st Contact Info) Description 02/20/2025 Patient Msg Gastroenterology [address] [id number] Provider, Ccf Nutrition Notes Social History Tobacco Use Types Packs/Day Years Used Date Smoking Tobacco: Never Smokeless Tobacco: Never Alcohol Use Standard Drinks/Week Comments Not Currently 0 (1 standard drink = 0.6 oz pur e alcohol) Area Deprivation Index Answer Date Jem rded National Score (1-100), lower number is lower ri 76 04/16/2024 State Score (1-10), lower number is lower risk 6 04/16/2024 Data from: https://www.neighborhoodatlas.[facility]/. Last address used for calculation spring04/16/2024 Comments [...] 3:00 PM EST Office Visit Endocrinology [address] [place] [address] Gale Kinney, BIOLOGICAL AIDE.ASTROPHYSICS TEACHER [address] [place] [address] 6 mo follow up documented as of this encounter Visit Diagnoses Not on filedocumented in this encounter Care Teams Plasma Table Operator Relationship Specialty Start Date End Date Eric Isbell Sr., DO PCP - General Family Medicine 03/29/[address] [place] [address] Registered Dietitian Nutrition 02/19/25 documented as of this encounter
--- OUTSIDE RECORDS SUMMARY | 2025-03-29 13:19 | XMS_ITS | Encounter Summary ---
Author Organization [employer] Address [id number] [address] [place] [address] Care Team Providers Care Validation Technician Name Role Phone Eric Isbell DO Primary Care Provider [phone] Encounter Details Date Type Department Care Team ([facility] st Contact Info) Description 09/26/2023 Telephone [facility]ne[facility] [address] [place] [address] Samantha Cruz Social History Tobacco Use Types Packs/Day Years Used Date Smoking Tobacco: Never Smokeless Tobacco: Never Alcohol Use Standard Drinks/Week Comments Not Currently 0 (1 standard drink = 0.6 oz pur e alcohol) [facility] Utilities Answer Date Recorded In the [...] <enter goal here> General Yes Jeanna Damon, HEAVY TRUCK TECHNICIAN Note: Evaluation of progress towards goal: home [...] documented as of this encounter Care Teams Validation Technician Relationship Specialty Start Date End Date Eric Isbell DO [address] [place] [address] PCP - General Family Medicine 08/16/24 documented as of this encounter
--- OUTSIDE RECORDS SUMMARY | 2025-03-29 13:20 | XMS_ITS | Encounter Summary ---
Author Organization [facility] Address [address] [place] [address] Care Team Providers Care Slug Press Operator Name Role Phone House Sr., Eric BUCKLEY Primary Care Provider + Micaela Randle RD Unavailable [phone] Source Comments In the event this [...] Description 05/12/2020 Get Medical Advice PS[facility]C CHILD [facility] [address] [address] [place] [address] [place] [address] [place] [address] RE: Non-Urgent Medical Question Social History Tobacco [...] Provider Department Center 07/03/2020 1:00 PM Joslyn Bland PENLKW [facility] 07/15/2020 2:30 PM Quentin Rinaldi PSPDLK [facility] 09/03/2020 9:30 AM Salvatore BUSH PLAS A Bldg documented in this encounter Plan of Treatment Upcoming Encounters Date Type Department Care Team (Late st Contact Info) Description 07/08/2025 3:00 PM EST Office Visit Endocrinology [address] [place] [address] Gale Kinney, GUEST LAUNDRY ATTENDANT.[facility] [address] [place], [place] [phone] 6 mo follow up documented as of this encounter Visit Diagnoses Not on filedocumented in this encounter Additional Health Concerns Infection Onset Date Last Indicated Resolved Time COVID-19 Rule-Out 11/26/2020 12/01/2020 12/02/2020 1:45 PM EDT documented as of this encounter Care Teams Slug Press Operator Relationship Specialty Start Date End Date Eric Isbell Sr., DO PCP - General Family Medicine 03/29/[address] [place] [address] Registered Dietitian Nutrition 02/19/25 documented as of this encounter
--- OUTSIDE RECORDS SUMMARY | 2025-03-29 13:20 | XMS_ITS | Encounter Summary ---
Author Organization [facility] Address [address] [place] [address] Care Team Providers Care Setup Technician Name Role Phone House Sr., Eric BUCKLEY Primary Care Provider + Micaela Randle RD Unavailable [phone] Source Comments In the event this information is protected by the Federal Confidentiality of Alcohol and Drug AbusePatient Records regulations: The Federal rules restrict any use of the information to criminally investigate or prosecute any alcohol or drug abuse patient.[facility] Encounter Details Date Type Department Care Team (Late st Contact Info) Description 06/02/2020 Get Medical Advice PSYC CHILD [facility] [address] [address] [place] [address] [place] [address] [place], [place] [phone] RE: Non-Urgent Medical Question Social History Tobacco Use Types Packs/Day Years Used Date Smoking Tobacco: Never Smokeless Tobacco: Never Area Deprivation Index Answer Date Jem rded National Score (1-100), lower number is lower ri sk Not on file 06/02/2020 State Score (1-10), lower number is lower risk N ot on file 06/02/2020 Data from: https://www.neighborhoodatlas.medicine.[facility]/. Last address used for calculation Not [...] 3:00 PM EST Office Visit Endocrinology [address] [place] [address] Gale Kinney, SEAMING MACHINE OPERATOR.ACCOUNTING MACHINE SERVICER [address] [place] [address] 6 mo follow up documented as of this encounter Visit Diagnoses Not on filedocumented in this encounter Additional Health Concerns Infection Onset Date Last Indicated Resolved Time COVID-19 Rule-Out 11/26/2020 12/01/2020 12/02/2020 1:45 PM EDT documented as of this encounter Care Teams Setup Technician Relationship Specialty Start Date End Date Eric Isbell Sr., PCP - General Family Medicine 03/29/[address] [id number] Registered Dietitian Nutrition 02/19/25 documented as of this encounter
--- OUTSIDE RECORDS SUMMARY | 2025-03-29 13:20 | XMS_ITS | Encounter Summary ---
Author Organization [facility] Address [address] [place] [address] Care Team Providers Care Tattoo And Body Artist Name Role Phone House Sr., Eric BUCKLEY Primary Care Provider + Micaela Randle RD Unavailable [phone] Source Comments In the event this information is protected by the Federal Confidentiality of Alcohol and Drug AbusePatient Records regulations: The Federal rules restrict any use of the information to criminally investigate or prosecute any alcohol or drug abuse patient.[facility] Encounter Details Date Type Department Care Team (Late st Contact Info) Description 07/10/2020 Patient Msg Peds Endocrinology [address] [place], [place] [id number] Provider, Ccf approval Social History Tobacco Use Types Packs/Day Years Used Date Smoking Tobacco: Never Smokeless Tobacco: Never Area Deprivation Index Answer Date Jem rded National Score (1-100), lower number is lower ri sk Not on file 06/02/2020 State Score (1-10), lower number is lower risk N ot on file 06/02/2020 Data from: https://www.neighborhoodatlas.[facility]/. Last address used for calculation Not on [...] Entry Date Author No 12/11/2019 12:44 PM Cielo Coppola RN documented in this encounter Plan of Treatment Upcoming Encounters Date Type Department Care Team (Late st Contact Info) Description 07/08/2025 3:00 PM EST Office Visit Endocrinology [address] [place] [address] Gale Kinney, BEE BREEDER.TALENT AGENT [address] [place] [address] 6 mo follow up documented as of this encounter Visit Diagnoses Not on filedocumented in this encounter Additional Health Concerns Infection Onset Date Last Indicated Resolved Time COVID-19 Rule-Out 11/26/2020 12/01/2020 12/02/2020 1:45 PM EDT documented as of this encounter Care Teams Tattoo And Body Artist Relationship Specialty Start Date End Date Eric Isbell Sr., DO PCP - General Family Medicine 03/29/[address] [place] [address] Registered Dietitian Nutrition 02/19/25 documented as of this encounter
--- OUTSIDE RECORDS SUMMARY | 2025-03-29 13:20 | XMS_ITS | Clinical Summary ---
Author Organization [facility] Address [address] [place], [place] [id number] Care Team Providers Care Physical Chemist Name Role Phone Sukhi Sams DO, Charles P Primary Care Provider + Micaela Randle RD Unavailable [phone] Allergies Active Allergy Reactions Criticality Noted Date [...] 100 mg by mouth twice daily. Active brivaracetam (BRIVIACT) 100 mg tablet Take [...] a day as needed. 12/07/19 24 Active sertraline (ZOLOFT) 25 mg [...] a day as needed. 09/20/19 24 Active Blood-Glucose Sensor (FREESTYLE RHIANNA 2 PLUS SENSOR) efrain Use to monitor blood glucose. Change sensor every 15 days. 9 each 3 02/08/20 25 Active Active Problems Problem Noted Date Diagnosed Date Type 2 diabetes mellitus without retinopathy Vision changes 10/08/2024 Myopia, bilateral 10/08/2024 Mild protein-calorie malnutrition 12/07/2019 Assessment & Plan (12/11/2019 8:12 AM EDT): Assessment: Noted on admission PLAN: - Nutrition consult placed - F/U with [facility]/PCP as outpatient Assessment & Plan (12/10/2019 8:23 [...] - Nutrition consult placed - F/U with [facility]/PCP as outpatient Assessment & Plan (12/10/2019 8:21 [...] old adult who was admitted to the [facility] on 12/05/2019 until 12/11/2019 for diagnosis. [...] home today - CBT with previously established local sales manager or Dr. Hancock as outpatient Panic [...] contrast + bone sequence completed on 12/04/2019 WN PLAN: - Treat symptomatically. Assessment & Plan (12/05/2019 4:42 PM EDT): Assessment: Present on admission following seizure related fall yesterday with head strike. Endorses 6/10 throbbing headache on admission. No photo/phonophobia, change in vision, nausea or vomiting. Physical exam unremarkable PLAN: - CT head without contrast + bone sequence Encounters Date Type Department Care Team Description 02/26/2025 2:30 PM EDT [facility] Psychology [address] [address] Tammy Thomas PSYD PTSD (post-traumatic stress disorder) (Primary Dx); Gastroparesis 02/26/2025 Patient [facility] Psychology [address] [address] Tammy Thomas PSYD Follow Up 02/22/2025 Patient [facility] General Surgery [address] [address] Provider, Ccf Follow up 02/20/2025 Patient [facility] Gastroenterology [address] [place] [address] Provider, Ccf Nutrition Notes 02/19/2025 12:45 PM EDT [facility] Gastroenterology [address] [place] [address] Gastroparesis (Primary Dx) 02/19/2025 11:00 AM EDT [facility] General Surgery [address] [address] Serg White, Gastroparesis (Primary Dx); Gastroesophageal reflux disease, unspecified whether esophagitis present; Chronic idiopathic constipation; Dyssynergic defecation; Abnormal weight loss 02/19/2025 Travel 02/12/2025 Telephone Endocrinology [address] [place] [address] Gale Kinney WATER AND SEWER SYSTEMS SUPERINTENDENT.HYPOID GEAR GENERATOR Infection Concern 02/05/2025 Telephone Endocrinology [address] [place] [address] Gale Kinney, WATER AND SEWER SYSTEMS SUPERINTENDENT.HYPOID GEAR GENERATOR Medication Problem (Blood-Glucose Sensor (FREESTYLE RHIANNA 3 PLUS SENSOR) efrain) 01/10/2025 Telephone [facility] [address] [place] [address] Provider, Ccf 01/07/2025 Telephone Endocrinology [address] [place], [place] [phone] Trina Leone LSW Ambulatory Social Work 01/04/2025 3:00 PM EDT Office Visit Endocrinology [address] [place] [address] Gale Kinney, WATER AND SEWER SYSTEMS SUPERINTENDENT.HYPOID GEAR GENERATOR Hypoglycemia (Primary Dx); Vision changes; Gastroparesis; Abnormal [...] is lower risk 6 04/16/2024 Data from: https://www.neighborhoodatlas.medicine.[facility].edu/. Last address used for calculation spring04/16/2024 Comments [...] EDT Inhaled Oxygen Concentration - - Weight 46.3 kg (102 lb) 02/19/2025 12:55 PM EDT Height 157.5 cm (5' 2.01 ) 01/04/2025 3:06 PM ED T Body Mass Index 18.65 01/04/2025 3:06 PM EDT Plan of Treatment Upcoming Encounters Date Type Department Care Team (Late st Contact Info) Description 07/08/2025 3:00 PM EST Office Visit Endocrinology [address] [place], [place] [phone] Gale Kinney, WATER AND SEWER SYSTEMS SUPERINTENDENT.HYPOID GEAR GENERATOR [address] [place] [address] 6 mo follow up Health Maintenance Due [...] Vaccine (2 of 2 - PCV) 11/25/202311/24 Influenza Vaccine (#1) 2025 Urine Albumin:Creatinine Ratio [...] A1C (POCT) 5.4 4.3 - 5.6 % [facility] Comment: Location:[facility], [address] [place] [address], [place], [place], [address] Point of care (POC) Hemoglobin A1c (HGBA1C) [...] specific diabetes management situations: The POC device crate tier provides a normal range of 4.2% to 6.5% for the HGBA1C POC test. However, the [place] [employer] guidelines indicate that patients with [...] blood cell lifespan. 01/04/2025 3:15 PM EDT us Gale Kinney APRN.CNP POC TESTING Final Result [facility] POINT OF CARE [facility] [address] [place], [place] * ALBUMIN/CREATININE RATIO, URINE (05/11/2024 9:56 AM EST) Creatinine, Ur Random (UCRR) 94.6 20.0 - 300.0 mg/dL 05/11/2024 5:22 PM EST [facility] Albumin, Urine Random <12.0 mg/L 05/11/2024 5:22 PM EST [facility] Albumin/Creat Ratio <13 <30 mg/g 05/11/2024 5:22 PM EST [facility] Comment: Adult Male and Female [...] 9:56 AM EST 05/11/2024 9:56 AM EST us Gale Kinney WATER AND SEWER SYSTEMS SUPERINTENDENT.HYPOID GEAR GENERATOR LABORATORY Final Result [facility] [address] [address], * (ABNORMAL) LIPID PANEL BASIC (03/29/2019 2:55 PM EDT) Cholesterol, Total 154 <170 mg/dL 03/30/2019 1:44 AM EDT [facility] Comment: <170 mg/dL, Acceptable 170-199 mg/dL, Borderline high >199 mg/dL, High Triglyceride 106(H) <90 mg/dL 03/30/2019 1:44 AM EDT [facility] Comment: <90 mg/dL, Acceptable 90-129 mg/dL, Borderline high >129 mg/dL, High HDL Cholesterol 51 >45 mg/dL 9 1:44 AM EDT [facility] Comment: >45 mg/dL, Acceptable 40-45 mg/dL, Borderline <40 mg/dL, Low LDL Cholesterol, Calculated 82 <110 mg/dL 03/30/2019 1:44 AM T [facility] Comment: <110 mg/dL, Acceptable 110-129 mg/dL, Borderline high >129 mg/dL, High Non HDL Cholesterol 103 <120 mg/dL 03/30/2019 1:44 AM T [facility] Comment: <120 mg/dL, Acceptable 120-144 mg/dL, Borderline high >144 mg/dL, High Fasting Time 12 hrs 03/29/2019 3:00 PM EDT [facility] VLDL Cholesterol 21(H) <18 mg/dL 03/30/20 19 1:44 AM EDT [facility] TC:HDL Ratio 3.02 <3.76 03/30/2019 1:44 AM EDT [facility] LDL:HDL Ratio 1.61 <2.42 03/30/2019 1:44 AM T [facility] Comment: Reference: 1. Expert Panel on Integrated Guidelines for Cardiovascular Health and Risk Reduction in Children and Adolescents: National Heart, Lung and Blood [place]. Pediatrics. 2011: 128(Suppl 5):D314-597. Blood specimen (specimen) 03/29/2019 2:55 PM EDT 03/29/2019 3:00 PM EDT us Joslyn Bland MD LABORATORY Final Result [facility] [address] [place] [address] [facility] [address] [place] [address] [address] from Last 3 Months or Most Recently Relevant to Health Maintenance Insurance [facility] MEDICAID Advance Directives Documents on File Type Date Recorded Patient Shipping Point Inspector Expl anation Advance Directive(s) 11/25/2020 10:24 AM Care Teams Physical Chemist Relationship Specialty Start Date End Date Eric Isbell Sr., DO PCP - General Family Medicine 03/29/[address] [id number] Registered Dietitian Nutrition 02/19/25
--- OUTSIDE RECORDS SUMMARY | 2025-03-29 13:20 | XMS_ITS | Encounter Summary ---
Author Organization [facility] Address [address] [place] [address] Care Team Providers Care Tetryl Nitrator Operator Name Role Phone House Sr., Eric BUCKLEY Primary Care Provider + Micaela Randle RD Unavailable [phone] Source Comments In the event this information is protected by the Federal Confidentiality of Alcohol and Drug AbusePatient Records regulations: The Federal rules restrict any use of the information to criminally investigate or prosecute any alcohol or drug abuse patient.[facility] Encounter Details Date Type Department Care Team (Late st Contact Info) Description 03/14/2020 Patient Msg URO/Gynecology [address] [place], [place] [phone] Provider, Ccf chest surgery Social History Tobacco [...] 3:00 PM EST Office Visit Endocrinology [address] [place] [address] Gale Kinney, SAILING INSTRUCTOR.GEAR MILLING MACHINE SET UP OPERATOR [address] [place] [address] 6 mo follow up documented as of this encounter Visit Diagnoses Not on filedocumented in this encounter Additional Health Concerns Infection Onset Date Last Indicated Resolved Time COVID-19 Rule-Out 11/26/2020 12/01/2020 12/02/2020 1:45 PM EDT documented as of this encounter Care Teams Tetryl Nitrator Operator Relationship Specialty Start Date End Date Eric Isbell Sr., DO PCP - General Family Medicine 03/29/[address] [place] [id number] Registered Dietitian Nutrition 02/19/25 documented as of this encounter
--- OUTSIDE RECORDS SUMMARY | 2025-03-29 13:20 | XMS_ITS | Encounter Summary ---
Author Organization [facility] Address [address] [place] [address] Care Team Providers Care Community Service Aide Name Role Phone House Sr., Eric BUCKLEY Primary Care Provider + Micaela Randle RD Unavailable [phone] Source Comments In the event this information is protected by the Federal Confidentiality of Alcohol and Drug AbusePatient Records regulations: The Federal rules restrict any use of the information to criminally investigate or prosecute any alcohol or drug abuse patient.[facility] Encounter Details Date Type Department Care Team (Late st Contact Info) Description 09/24/2020 Get Medical Advice Pediatrics [address] [place] [address] Joslyn Bland MD [address] [place] [address] RE: Medication Question (Not Renewal) Social History Tobacco Use Types Packs/Day Years Used Date Smoking Tobacco: Never Smokeless Tobacco: Never Area Deprivation Index Answer Date Jem rded National Score (1-100), lower number is lower ri sk Not on file 06/02/2020 State Score (1-10), lower number is lower risk N ot on file 06/02/2020 Data from: https://www.neighborhoodatlas.medicine.[facility]/. Last address used for calculation Not [...] 3:00 PM EST Office Visit Endocrinology [address] [place] [address] Gale Kinney, STREET CONTRACTOR.[facility] [address] [place] [address] 6 mo follow up documented as of this encounter Visit Diagnoses Not on filedocumented in this encounter Additional Health Concerns Infection Onset Date Last Indicated Resolved Time COVID-19 Rule-Out 11/26/2020 12/01/2020 12/02/2020 1:45 PM EDT documented as of this encounter Care Teams Community Service Aide Relationship Specialty Start Date End Date Eric Isbell Sr., DO PCP - General Family Medicine 03/29/[address] [place] [address] Registered Dietitian Nutrition 02/19/25 documented as of this encounter
--- OUTSIDE RECORDS SUMMARY | 2025-03-29 13:20 | XMS_ITS | Encounter Summary ---
Author Organization [facility] Address [address] [place] [address] Care Team Providers Care Animal Assistant Name Role Phone House Sr., Eric BUCKLEY Primary Care Provider + Micaela Randle RD Unavailable [phone] Source Comments In the event this information is protected by the Federal Confidentiality of Alcohol and Drug AbusePatient Records regulations: The Federal rules restrict any use of the information to criminally investigate or prosecute any alcohol or drug abuse patient.[facility] Encounter Details Date Type Department Care Team (Late st Contact Info) Description 06/02/2020 Get Medical Advice Pediatrics [address] [place] [address] Domenica Rivas MD [address] [place] [address] RE: Non-Urgent Medical Question Social History Tobacco Use Types Packs/Day Years Used Date Smoking Tobacco: Never Smokeless Tobacco: Never Area Deprivation Index Answer Date Jem rded National Score (1-100), lower number is lower ri sk Not on file 06/02/2020 State Score (1-10), lower number is lower risk N ot on file 06/02/2020 Data from: https://www.neighborhoodatlas.medicine.[facility]/. Last address used for calculation [...] (Rn), RN - 06/02/2020 5:25 PM EST [facility] patient documented in this encounter Plan of Treatment Upcoming Encounters Date Type Department Care Team (Late st Contact Info) Description 07/08/2025 3:00 PM EST Office Visit Endocrinology [address] [place] [address] Gale Kinney, ROSA.AIR TRAFFIC INSTRUCTOR [address] [place] [address] 6 mo follow up documented as of this encounter Visit Diagnoses Not on filedocumented in this encounter Additional Health Concerns Infection Onset Date Last Indicated Resolved Time COVID-19 Rule-Out 11/26/2020 12/01/2020 12/02/2020 1:45 PM EDT documented as of this encounter Care Teams Animal Assistant Relationship Specialty Start Date End Date Eric Isbell Sr., DO PCP - General Family Medicine 03/29/[address] [place] [address] Registered Dietitian Nutrition 02/19/25 documented as of this encounter
--- OUTSIDE RECORDS SUMMARY | 2025-03-29 13:20 | XMS_ITS | Encounter Summary ---
Author Organization [facility] Address [address] [place] [address] Care Team Providers Care Candy Waffle Assembler Name Role Phone House Sr., Eric BUCKLEY Primary Care Provider + Micaela Randle RD Unavailable [phone] Source Comments In the event this [...] 05/07/2020 Patient Msg URO/Gynecology [address] [place], [place] [phone] Provider, Ccf Appointment Social History Tobacco Use [...] 3:00 PM EST Office Visit Endocrinology [address] [place] [address] Gale Kinney, SHEET METAL SUPERINTENDENT.MEN'S GARMENT FITTER [address] [place] [address] 6 mo follow up documented as of this encounter Visit Diagnoses Not on filedocumented in this encounter Additional Health Concerns Infection Onset Date Last Indicated Resolved Time COVID-19 Rule-Out 11/26/2020 12/01/2020 12/02/2020 1:45 PM EDT documented as of this encounter Care Teams Candy Waffle Assembler Relationship Specialty Start Date End Date Eric Isbell Sr., DO PCP - General Family Medicine 03/29/[address] [place] [id number] Registered Dietitian Nutrition 02/19/25 documented as of this encounter
--- OUTSIDE RECORDS SUMMARY | 2025-03-29 13:27 | XMS_ITS | CCD ---
Author Organization [facility] Care Team Providers Care Obstetrics And Gynecology Professor Name Role Phone ALEXA SAHA Admitting Unavailable [...] Provider Unavai DO Tommy Hernandez Emergency Provider [phone] DO Som Fiore Emergency Provider DO Roberto Whittaker Emergency Provider [phone] DO Tommy Bowen Emergency Provider DO Kavin French Primary Care Provider [phone] DO Los Mcnally Emergency Provider MD Pipe Jose Emergency Provider [phone] DO Som Fiore Emergency Provider Bellaire Kavin Sams Primary Care Provider DO Tommy Bowen Emergency Provider [phone] DO Kavin French Primary Care Provider DO Los Mcnally Emergency Provider MD Pipe Jose Emergency Provider [phone] DO Som Fiore Emergency Provider [phone] DO [place] Emergency Provider DO Kavin French Primary Care Provider [phone] Leslie DO Attila Anderson Emergency Provider Bellaire, DO Reyes Primary Care Provider [phone] Panfilo DO Roberto Espinosa Emergency Provider House, DO Reyes Primary Care Provider Nelson, DO Aiken J Emergency Provider Unavailab le Panfilo DO Mejia A Emergency Provider [phone] ZEYAD Bowen Emergency Provider [phone] [facility] Federica E Emergency Provider [phone] HOUSE, DR REYES Primary Care Unavailable TAMIR, DEO Admitting Unavailable TAMRI, DEO Attending Unavailable TAMIR, DEO Consulting Unavailable [...] OSULLIVAN Consulting Unavailable DERROW, COSMO Consulting Unavailable FOND DU LAC, DR REYES Primary Care Unavailable MARKER ., DR CASTRO Consulting Unavailable MARKER ., DR CASTRO Admdevang Unavailable MARKER ., DR CASTRO Attending Unavailable DEBBIE BRITT Consulting Unavailable ARVIND, NAHUN Consulting Unavailable GILLIAN, DR REYES Primary Care Unavailable SOPHIE ., COLTEN Admitting Unavailable SOPHIE ., COLTEN Attending Unavailable RADHA, DR MARGARITA Frankel Consulting Unavailable SOPHIE ., COLTEN Consulting Unavailable LO TUTTLE Consulting Unavailable Bellaire Sr., Kavin BUCKLEY Primary Care Provider FOND DU LAC KAVIN LYONS Primary Care Unavailable STEFANIE ORTEZ Attending Unavailable Bellaire, DO Reyes Primary Care Provider DO Som Fiore Emergency Provider ZEYAD Rivera Emergency Provider Bellaire, DO Reyes Primary Care Provider DO Som Fiore Emergency Provider [phone] ZEYAD Rivera Emergency Provider MD Pipe Jose Emergency Provider NON STAFF Primary Care Provider Unavailabl e Gillian HUGGINS, Kavin Boland Primary Care Provider HOUSE SR, KAVIN P Primary Care Unavailable EMILIA KHALEK, MOHAMED Referring Unavailabl e EMILIA KHALEK, MOHAMED Referring Unavailabl e HOUSE SR, KAVIN P Primary Care Unavailable HOUSE SR, KAVIN P Primary Care Unavailable AMAN TAPIA Attending Unavailable EMILIA KHALEK, MOHAMED Referring Unavailabl e HOUSE SR, KAVIN P Primary Care Unavailable EMILIA KHALEK, MOHAMED Referring Unavailabl e HOUSE SR, KAVIN P Primary Care Unavailable House Sr., DO, Kavin P Primary Care Provider HOUSE SR, KAVIN P Primary Care Unavailable GALE BASSETT Referring Unavailable Samson SENIOR STRATEGY ANALYST, Lavonne Goodrich Unavailable House DO, Kavin P Primary Care Provider House DO, Kavin P Primary Care Provider House DO, Kavin P Primary Care Provider ENRIQUETA TSE I Attending Unavailable HOUSE, KAVIN P Referring Unavailable HOUSE, KAVIN P Primary Care Unavailable HOUSE, KAVIN P Referring Unavailable HOUSE, KAVIN P Primary Care Unavailable NETTE LACKEY Attending Unavailable JESUS, ENRIQUETA Osorio Referring Unavailable HOUSE, KAVIN P Primary Care Unavailable NETTE LACKEY Attending Unavailable HOUSE, KAVIN P Referring Unavailable HOUSE, KAVIN P Primary Care Unavailable KEYANNA-MELVIN, JAJA Attending Unavailable ENRIQUETA TSE I Referring Unavailable HOUSE, KAVIN P Primary Care Unavailable MARLENAH-MELVIN, JAJA Attending Unavailable HOUSE, KAVIN P Referring Unavailable HOUSE, KAVIN P Primary Care Unavailable HOUSE, KAVIN P Referring Unavailable HOUSE, KAVIN P Primary Care Unavailable KEYANNA-MELVIN, JAJA Attending Unavailable HOUSE, KAVIN P Referring Unavailable HOUSE, KAVIN P Primary Care Unavailable KAREN NEELY Attending Unavailable HOUSE, KAVIN P Referring Unavailable HOUSE, KAVIN P Primary Care Unavailable DEBBIE MCKEON Referring Unavailable HOUSE, KAVIN P Primary Care Unavailable DEBBIE MCKEON Attending Unavailable HOUSE, KAVIN P Referring Unavailable HOUSE, KAVIN P Primary Care Unavailable House DO, Kavin P Primary Care Provider Tere Solis DO Attending Provider Gillian DO, Kavin Primary Care Provider [phone] LAVONNE THOMAS Referring Unavailab le HOUSE, KAVIN P Primary Care Unavailable House DO, Kavin P Primary Care Provider Kavin French MD Primary Care Provider REA SALINAS Referring Unavailable ISAIAS, JOJO Referring Unavailable RITA, REA Referring Unavailable ISAIAS, JOJO Referring Unavailable ISAIAS, [...] JOJO Attending Unavailable ISAIAS, JOJO Referring Unavailable FUMODEBBIE Referring Unavailable HOUSE, KAVIN P Primary Care Unavailable CORNELIUS EPSTEIN Referring Unavailable HOUSE, KAVIN P Primary Care Unavailable HOUSE, KAVIN P Primary Care Unavailable HOUSE, KAVIN P Primary Care Unavailable HANNA DAN Attending Unavailable HOUSE, KAVIN P Primary Care Unavailable LIU CAVAZOS Attending Unavailable Edenilson Schmitz RD Unavailable Gillian DO Kavin Primary Care Provider Shantanu Robles MD Other Provider Adam Patel MD Attending Provider Shantanu Robles MD Attending Provider JOSEY WHITE Attending Unavailable HOUSE SR, KAVIN P Primary Care Unavailable EDENILSON SCHMITZ Attending Unavailable HOUSE SR, KAVIN P Primary Care Unavailable TAMMY PALACIOS Attending Unavailable TERE SOLIS Referring Unavailable HOUSE SR, KAVIN P Primary [...] HOUSE SR, KAVIN P Primary Care Unavailable ESRJIO, GALE Frankel Attending Unavailable HOUSE SR, KAVIN P Primary Care Unavailable TRABOULSSI, CHERELLEF Attending Unavailable HOUSE, KAVIN P Primary Care Unavailable TRABOULSSI, CHERELLEF Attending Unavailable TRABOULSSI, MOTEQUILAF Referring Unavailable HOUSE, KAVIN P Primary Care Unavailable House, Kavin Primary Care Unavailable Ly, Tere Pitt Attending Unavailable Ly, Tere Pitt Admitting Unavailable House, Kavin Primary Care Unavailable Traboulssi, Motequilaf Attending Unavailable Traboulssi, Mourhaf Admitting Unavailable Ly, Tere L Admitting Unavailable House, Kavin Primary Care Unavailable Ly, Tere L Attending Unavailable HOUSE, DO KAVIN P Attending Unavailable HOUSE, KAVIN P Primary Care Unavailable HOUSE, DO KAVIN P Attending Unavailable HOUSE, KAVIN P Primary Care Unavailable DEBBIE MCKEON Attending Unavailable HOUSE, KAVIN P Referring Unavailable HOUSE, KAVIN P Primary Care Unavailable HOUSE, KAVIN P Referring Unavailable HOUSE, KAVIN P Primary Care Unavailable HOUSE, KAVIN P Primary Care Unavailable SAOUR, BASHAR Admitting Unavailable SAOUR, BASHAR Attending Unavailable NICHOLAS, DONI Consulting Unavailable FUMDEBBIE Dominique E Consulting Unavailable NICHOLAS, DONI Admitting Unavailable NICHOLAS, DONI Attending Unavailable HOUSE, KAVIN P Primary Care Unavailable [facility] Consulting Alley vailable FLOWER, [facility] ulting Unavailable СЕРГЕЙ, EHAD Consulting Unavailable INPATIENT, TELENEUROLOGY Consulting Unavail able Allergies Allergy Classification Reported Allergen(s) Allergy Type Date of Onset Reaction(s) Facility (20 sources) Codeine; Translations: [CODEINE] Drug Allergy 8 Hives [facility] Repository (20 sources) Codeine Drug Allergy 8 Hives, Itching, Rash, Unknown [facility] Work Phone: (4 sources) topiramate; Translations: [TOPIRAMATE] Drug Allergy 5 Seizure, Respiratory depression [facility] Work Phone: (3 sources) Topiramate Propensity to adverse reactions 5 Seizures [facility] (1 source) Codeine Drug Allergy 5 [facility] Repository Medications Current Medications Medication Drug Class(es) Dates Sig (Normalized) Sig (Original) [id number] 200 actuat albuterol 0.09 mg/actuat metered dose [...] Glucose Sensor (FreeStyle Goyo 2 Plus Sensor) [facility] (3 sources) Start: 02-07-2025 Continuous Glucose Sensor (FreeStyle Goyo 2 Plus Sensor) [facility] USE DIRECTED to check blood sugar change [...] Start: 11-24-2021 take 1 capsule by mo ut in the morning, then take 1 capsule [...] once daily take 1 tablet by ketan th twice daily flecainide (Tambocor) 100 mg tablet [...] capsule Discontinued 500 MG PO Twice daily 07 [...] Discontinued docusate sodium 50 mg / sennosides, [facility] 8.6 mg oral tablet (20 sources) Start: [...] tablet Discontinued 500 MG PO Twice daily February 25, 2022 12:00am February 25, 2022 [...] Discontinued 500 MG PO Twice daily 60 30 January 02, 2021 12:00am March 31, 2021 [...] Twice daily 10 5 August 30, 2022 1:00am September 13, 2022 [...] mL IVPB (loading dose) (1 source) Start: 4 End: 4 phenytoin (DILANTIN) 1,000 mg in sodium chloride [...] Comment on above: [facility]. QELBREE 200 mg capsule, [...] 9:16am Start: 04-02-2024 take 2 tablets by [facility] twice daily Sennosides (Senna Lax) 8.6 mg tablet Active 17.2 MG PO Twice daily 120 April 02, 2024 12:00am sennosides, [facility] 8.6 mg oral tablet (20 sources) Start: [...] Twice daily as needed for abdominal discomfort 10 June 02, 2021 2:08pm June 29, 2021 12:25pm [...] [Dizziness and giddiness] Onset: 3 02-11-2023 Episodic Conduction disorders (1 source) Encounter for adjustment and management of other cardiac device; Translations: [Encounter for adjustment and management of other cardiac device] Onset: 5 Chronic Diabetes mellitus with complications (3 sources) [...] intractable, without status epilepticus] Onset: 8 Chronic Epilepsy; convulsions (20 sources) Neurological finding; Translations: [Unspecified convulsions] Onset: 9 06-02-2021 Episodic Esophageal disorders (1 source) Gastroesophageal reflux disease; [...] without status migrainosus] Onset: 3 08-10-2023 Chronic Headache; including migraine (20 sources) Headache; Translations: [Frequent headache] Onset: 8 Resolved: 0 03-13-2020 Episodic Menstrual disorders (1 source) Irregular periods; Translations: [Irregular menstruation, unspecified] 09-13-2023 Chronic Miscellaneous mental health disorders (20 sources) Dissociative convulsions; Translations: [Conversion disorder with seizures or convulsions] Onset: 8 08-15-2019 Chronic Mood disorders (20 sources) Mood disorder; Translations: [Unspecified mood [affective] disorder] Onset: 5 03-31-2021 Chronic Nonspecific chest pain (20 sources) Atypical chest pain; Translations: [Other chest pain] Onset: 2 09-28-2021 Episodic Nutritional deficiencies (20 sources) Deficiency of macronutrients; Translations: [Mild protein-calorie malnutrition] Onset: 0 12-11-2019 Chronic Other aftercare (1 source) Other long term care pharmacist (current) drug therapy; Translations: [OTH ACID MIXER CURRENT DRUG THERAPY] Onset: 3 Episodic Other aftercare (1 source) senior care (current) use of oral hypoglycemic drugs; Translations: [DETENTION USE ORAL HYPOGLYCEMIC DX] Onset: 3 Episodic [...] (6 sources) Other specified health status; Translations: [Gbxboj-le-ydru transgender person] Onset: 5 12-31-2020 Episodic Residual [...] sources) C/O POSSIBLE SEIZURE Onset: 8 Unclassified (1 source) Menstrual Problem Onset: 5 Unclassified (1 source) Low back pain, unspecified; Translations: [Low back pain, unspecified] Onset: 4 Unclassified (1 source) Consult Onset: 4 Unclassified (1 source) Bladder Problem Onset: 5 Unclassified (2 sources) Implantable loop recorder present 01-23-2025 Unclassified (2 sources) Supraventricular tachycardia, unspecified; Translations: [Supraventricular tachycardia, unspecified] Onset: 5 Unclassified (2 sources) Seizure - Prior Hx Of Onset: 5 Unclassified (1 source) cough and shortness of breath Onset: 5 Unclassified (1 source) Cyclical vomiting syndrome unrelated to migraine; Translations: [Emesis, persistent] Onset: 5 Unclassified (1 source) Karis Carlos Onset: 5 Urinary tract infections (20 sources) [...] implantable subdermal contraceptive] Onset: 09-19-2023 09-19-2023 Episodic Genitourinary symptoms and ill-defined conditions (20 sources) Blood in urine; Translations: [Hematuria, unspecified] Onset: 09-07-2023 Resolved: 08-16-2024 07-10-2021 Episodic Influenza (1 source) Influenza due to [...] Test Name Value Interpretation Reference Range Facility CT BRAIN WO CONTon CT BRAIN WO [...] Jean Marie Tanner on 03/21/2025 1:57 PM Normal [facility] XR FEMUR LT 2+ VIEWSon 03-21 XR FEMUR LT 2+ VIEWS XR FEMUR LT 2+ VIEW S EXAM: XR FEMUR LT 2+ VIEWS CLINICAL INFORMATION: pain. COMPARISON: None. FINDINGS: There is no evidence for an acute displaced fracture or malalignment of the femur. IMPRESSION: Normal AP and lateral views of the femur. Finalized by Akbar Portillo MD on 03/21/2025 1:34 PM Normal [facility] URINALYSISon 03-19-2025 Bilirubin Ql (U) Small Abnormal Negative [facility] Comment on above: Result Comment: Not confirmed. Interpret positive results with caution. Performed By: #### C BCA #### [facility] ([facility]) [address] [place] [address] VIR BLOOD/HGB Negative Normal Negative [facility] Comment on above: Performed By: #### C BCA #### [facility] ([facility]) [address] [place] [address] VIR CA OXALATE CRYSTALS Present Abnormal None [facility] Comment on above: Performed By: #### C BCA #### [facility] ([facility]) [address] [place] [address] VIR Color (U) Yellow Normal Yellow [facility] Comment on above: Performed By: #### C BCA #### [facility] ([facility]) [address] [place] [address] VIR Glucose Ql (U) Negative Normal Negative, 250 mg/dL [facility] Comment on above: Performed By: #### C BCA #### [facility] ([facility]) [address] [place] [address] VIR Ketones Ql (U) 15 mg/dL Abnormal Negative [facility] Comment on above: Performed By: #### C BCA #### [facility] ([facility]) [address] [place] [address] VIR Leukocyte esterase Test strip Ql (U) Negative Normal Negative [facility] Comment on above: Performed By: #### C BCA #### [facility] ([facility]) [address] [place] [address] VIR Nitrite Ql (U) Negative Normal Negative [facility] Comment on above: Performed By: #### C BCA #### [facility] ([facility]) [address] [place] [address] VIR PH,URINE 6.0 Normal 5.0-8.5 [facility] Comment on above: Performed By: #### C BCA #### [facility] ([facility]) [address] [place] [address] VIR Protein Ql (U) Trace Abnormal Negative [facility] Comment on above: Performed By: #### C BCA #### [facility] ([facility]) [address] [place] [address] VIR R.B.CELLS 1 Normal 0-5 [facility] Comment on above: Performed By: #### C BCA #### [facility] ([facility]) [address] [place] [address] VIR Specific gravity (U) [Rel density] 1.025 Normal 1.003-1.03 5 [facility] Comment on above: Performed By: #### C BCA #### [facility] ([facility]) [address] [place] [address] VIR SQUAMOUS EPITHELIUM 5 Normal 0-5 [facility] Comment on above: Performed By: #### C BCA #### [facility] ([facility]) [address] [place] [address] VIR TURBIDITY Hazy Abnormal Clear [facility] Comment on above: Performed By: #### C BCA #### [facility] ([facility]) [address] [place] [address] VIR UROBILINOGEN 1.0 eu/dL Normal 0.2 eu/dL, 1.0 eu/dL [facility] Comment on above: Performed By: #### C BCA #### [facility] ([facility]) [address] [place] [address] VIR W.B.CELLS 4 Normal 0-5 [facility] Comment on above: Performed By: #### C BCA #### [facility] ([facility]) [address] [place] [address] VIR FENTANYL, URINE QUALITATIVEo n 03-17-2025 FENTANYL, URINE QUAL. Negative Normal Negative [facility] Comment on above: Order Comment: Fenta nyl screening cutoff = 5ng/mlThis report is intended for use in clinicalmonitoring or management of patients. Performed By: #### C BCA #### [facility] ([facility]) [address] [place] [address] VIR URINALYSISon 03-17-2025 Bilirubin Ql (U) Small Abnormal Negative [facility] Comment on above: Order Comment: Urine received without preservative. Delays in transport may affect results. Interpret with caution. A clinical correlation is recommended. Result Comment: Not confirmed. Interpret positive results with caution. Performed By: #### C BCA #### [facility] ([facility]) [address] [place] [address] VIR BLOOD/HGB Negative Normal Negative [facility] Comment on above: Order Comment: Urine received without preservative. Delays in transport may affect results. Interpret with caution. A clinical correlation is recommended. Performed By: #### C BCA #### [facility] ([facility]) [address] [place] [address] VIR CA OXALATE CRYSTALS Present Abnormal None [facility] Comment on above: Order Comment: Urine received without preservative. Delays in transport may affect results. Interpret with caution. A clinical correlation is recommended. Performed By: #### C BCA #### [facility] ([facility]) [address] [place] [address] VIR Color (U) Yellow Normal Yellow [facility] Comment on above: Order Comment: Urine received without preservative. Delays in transport may affect results. Interpret with caution. A clinical correlation is recommended. Performed By: #### C BCA #### [facility] ([facility]) [address] [place] [address] VIR Glucose Ql (U) Negative Normal Negative, 250 mg/dL [facility] Comment on above: Order Comment: Urine received without preservative. Delays in transport may affect results. Interpret with caution. A clinical correlation is recommended. Performed By: #### C BCA #### [facility] ([facility]) [address] [place] [address] VIR Ketones Ql (U) 15 mg/dL Abnormal Negative [facility] Comment on above: Order Comment: Urine received without preservative. Delays in transport may affect results. Interpret with caution. A clinical correlation is recommended. Performed By: #### C BCA #### [facility] ([facility]) [address] [place] [address] VIR Leukocyte esterase Test strip Ql (U) Negative Normal Negative [facility] Comment on above: Order Comment: Urine received without preservative. Delays in transport may affect results. Interpret with caution. A clinical correlation is recommended. Performed By: #### C BCA #### [facility] ([facility]) [address] [place] [address] VIR Nitrite Ql (U) Negative Normal Negative [facility] Comment on above: Order Comment: Urine received without preservative. Delays in transport may affect results. Interpret with caution. A clinical correlation is recommended. Performed By: #### C BCA #### [facility] ([facility]) [address] [place] [address] VIR PH,URINE 6.5 Normal 5.0-8.5 [facility] Comment on above: Order Comment: Urine received without preservative. Delays in transport may affect results. Interpret with caution. A clinical correlation is recommended. Performed By: #### C BCA #### [facility] ([facility]) [address] [place] [address] VIR Protein Ql (U) Trace Abnormal Negative [facility] Comment on above: Order Comment: Urine received without preservative. Delays in transport may affect results. Interpret with caution. A clinical correlation is recommended. Performed By: #### C BCA #### [facility] ([facility]) [address] [place] [address] VIR R.B.CELLS 0 Normal 0-5 [facility] Comment on above: Order Comment: Urine received without preservative. Delays in transport may affect results. Interpret with caution. A clinical correlation is recommended. Performed By: #### C BCA #### [facility] ([facility]) [address] [place] [address] VIR Specific gravity (U) [Rel density] 1.020 Normal 1.003-1.03 5 [facility] Comment on above: Order Comment: Urine received without preservative. Delays in transport may affect results. Interpret with caution. A clinical correlation is recommended. Performed By: #### C BCA #### [facility] ([facility]) [address] [place] [address] VIR SQUAMOUS EPITHELIUM 5 Normal 0-5 [facility] Comment on above: Order Comment: Urine received without preservative. Delays in transport may affect results. Interpret with caution. A clinical correlation is recommended. Performed By: #### C BCA #### [facility] ([facility]) [address] [place] [address] VIR TURBIDITY Clear Normal Clear [facility] Comment on above: Order Comment: Urine received without preservative. Delays in transport may affect results. Interpret with caution. A clinical correlation is recommended. Performed By: #### C BCA #### [facility] ([facility]) [address] [place] [address] VIR UROBILINOGEN 1.0 eu/dL Normal 0.2 eu/dL, 1.0 eu/dL [facility] Comment on above: Order Comment: Urine received without preservative. Delays in transport may affect results. Interpret with caution. A clinical correlation is recommended. Performed By: #### C BCA #### [facility] ([facility]) [address] [place] [address] VIR W.B.CELLS 5 Normal 0-5 [facility] Comment on above: Order Comment: Urine received without preservative. Delays in transport may affect results. Interpret with caution. A clinical correlation is recommended. Performed By: #### C BCA #### [facility] ([facility]) [address] [place] [address] VIR URINE CULTUREon 03-17-2025 Bacteria identified Cx Nom (U) CULTURE RESULTS <10,000 ORGANISMS/mL NORMAL URO GENITAL ZANDER Normal [facility] Comment on above: Performed By: #### C BCA #### [facility] ([facility]) [address] [place] [address] VIR BEDSIDE GLUCOSEon 03-16-2025 Glucose [Mass/Vol] 123 mg/dL Normal [facility] Comment on above: Performed By: #### C BCA #### [facility] ([facility]) [address] [place] [address] VIR HEMOGLOBIN A1Con 03-16-2025 Glucose [Mass/Vol] 100 mg/dL Normal [facility] Comment on above: Order Comment: Do no t repeat lab if done within the last 6 months and results are available. Performed By: #### C BCA #### [facility] ([facility]) [address] [place] [address] VIR HbA1c (Bld) [Mass fraction] 5.1 % Normal 4.4-5.6 [facility] Comment on above: Order Comment: Do no t repeat lab if done within the last 6 months and results are available. Result Comment: ADA Guidelines Result HgbA1c Normal : less than 5.7 % Prediabetes : 5.7 % to 6.4 % Diabetes : > 6.4 % Use with caution in patients with abnormal hemoglobin variants as the half-life of red blood cells and in vivo glycation rates are affected. Performed By: #### C BCA #### [facility] ([facility]) [address] [place] [address] VIR LIPID PROFILEon 03-16-2025 Cholesterol [Mass/Vol] 159 mg/dL Normal 150-200 [facility] Comment on above: Order Comment: Do no t repeat lab if done within the last 6 months and results are available. Performed By: #### C BCA #### [facility] ([facility]) [address] [place] [address] VIR Cholesterol in HDL [Mass/Vol] 42 mg/dL Normal >39 [facility] Comment on above: Order Comment: Do no t repeat lab if done within the last 6 months and results are available. Result Comment: HDL <40 mg/dL - High Risk HDL > or = 40mg/dL- Desirable HDL >60 mg/dL - Negative Risk Performed By: #### C BCA #### [facility] ([facility]) [address] [place] [address] VIR Cholesterol in LDL [Mass/Vol] 103 mg/dL Normal <130 [facility] Comment on above: Order Comment: Do no t repeat lab if done within the last 6 months and results are available. Result Comment: LDL <100 mg/dL - Desirable LDL >160 mg/dL - High Risk Performed By: #### C BCA #### [facility] ([facility]) [address] [place] [address] VIR CHOLESTEROL:HDL 3.8 Normal [facility] Comment on above: Order Comment: Do no t repeat lab if done within the last 6 months and results are available. Performed By: #### C BCA #### [facility] ([facility]) [address] [place] [address] VIR Triglyceride [Mass/Vol] 70 mg/dL Normal 27-150 [facility] Comment on above: Order Comment: Do no t repeat lab if done within the last 6 months and results are available. Performed By: #### C BCA #### [facility] ([facility]) [address] [place] [address] VIR VERY LOW LIPOPROTEIN 14 mg/dL Normal 0-30 [facility] Comment on above: Order Comment: Do no t repeat lab if done within the last 6 months and results are available. Performed By: #### C BCA #### [facility] ([facility]) [address] [place] [address] VIR PROLACTINon 03-16-2025 PROLACTIN 10.2 ng/mL Normal [facility] Comment on above: Performed By: #### C BCA #### [facility] ([facility]) [address] [place] [address] VIR BEDSIDE GLUCOSEon 03-14-2025 Glucose [Mass/Vol] 94 mg/dL Normal [facility] Comment on above: Performed By: #### C BCA #### [facility] ([facility]) [address] [place] [address] VIR BEDSIDE GLUCOSEon 03-12-2025 Glucose [Mass/Vol] 99 mg/dL Normal [facility] Comment on above: Performed By: #### C BCA #### [facility] ([facility]) [address] [place] [address] VIR BASIC METABOLIC PANELon 02-25 Anion gap [Moles/Vol] 11 mmol/L Normal [facility] Comment on above: Performed By: #### B MP #### [facility] ([facility]) [address] [place] [address] VIR Calcium [Mass/Vol] 9.1 mg/dL Normal 8.5-10.5 [facility] Comment on above: Performed By: #### B MP #### [facility] ([facility]) [address] [place] [address] VIR Chloride [Moles/Vol] 103 mmol/L Normal 98-109 [facility] Comment on above: Performed By: #### B MP #### [facility] ([facility]) [address] [place] [address] VIR CO2 [Moles/Vol] 25 mmol/L Normal 22-32 [facility] Comment on above: Performed By: #### B MP #### [facility] ([facility]) [address] [place] [address] VIR Creatinine [Mass/Vol] 0.93 mg/dL Normal 0.60-1.00 [facility] Comment on above: Result Comment: METH OD TRACEABLE TO IDMS STANDARD Performed By: #### B MP #### [facility] ([facility]) [address] [place] [address] VIR GFR/1.73 sq M.predicted among non-blacks MDRD (S/P/Bld) [Vol rate/Area] 89 mL/min/{1.73_m2} Normal >=60 [facility] Comment on above: Result Comment: Repo rted eGFR is based on the CKD-EPI 2020 equation that does not use a race coefficient. Performed By: #### B MP #### [facility] ([facility]) [address] [place] [address] VIR Glucose [Mass/Vol] 72 mg/dL Normal 65-99 [facility] Comment on above: Performed By: #### B MP #### [facility] ([facility]) [address] [place] [address] VIR Potassium [Moles/Vol] 4.1 mmol/L Normal 3.5-5.0 [facility] Comment on above: Performed By: #### B MP #### [facility] ([facility]) [address] [place] [address] VIR Sodium [Moles/Vol] 139 mmol/L Normal 134-146 [facility] Comment on above: Performed By: #### B MP #### [facility] ([facility]) [address] [place] [address] VIR Urea nitrogen [Mass/Vol] 19 mg/dL Normal 5-23 [facility] Comment on above: Performed By: #### B MP #### [facility] ([facility]) [address] [place] [address] VIR BEDSIDE GLUCOSEon 03-11-2025 Glucose [Mass/Vol] 76 mg/dL Normal [facility] Comment on above: Performed By: #### B EDG #### [facility] ([facility]) [address] [place] [address] VIR CBC (NO DIFF)on 03-11-2025 Erythrocyte distribution width (RBC) [Ratio] 13.0 % Normal [facility] Comment on above: Performed By: #### C BC #### [facility] ([facility]) [address] [place] [address] VIR Hematocrit (Bld) [Volume fraction] 39.6 % Normal 35-47 [facility] Comment on above: Performed By: #### C BC #### [facility] ([facility]) [address] [place] [address] VIR Hemoglobin (Bld) [Mass/Vol] 14.0 g/dL Normal 12-15.5 [facility] Comment on above: Performed By: #### C BC #### [facility] ([facility]) [address] [place] [address] VIR MCH (RBC) [Entitic mass] 31.7 pg Normal [facility] Comment on above: Performed By: #### C BC #### [facility] ([facility]) [address] [place] [address] VIR MCHC (RBC) [Mass/Vol] 35.3 g/dL Normal [facility] Comment on above: Performed By: #### C BC #### [facility] ([facility]) [address] [place] [address] VIR MCV (RBC) [Entitic vol] 90 fL Normal [facility] Comment on above: Performed By: #### C BC #### [facility] ([facility]) [address] [place] [address] VIR Platelet mean volume (Bld) [Entitic vol] 7.9 fL Normal [facility] Comment on above: Performed By: #### C BC #### [facility] ([facility]) [address] [place] [address] VIR Platelets (Bld) [#/Vol] 197 10*3/uL Normal 150-450 [facility] Comment on above: Performed By: #### C BC #### [facility] ([facility]) [address] [place] [address] VIR RBC COUNT 4.40 X10E12/L Normal 4.1-5.2 [facility] Comment on above: Performed By: #### C BC #### [facility] ([facility]) [address] [place] [address] VIR WBC (Bld) [#/Vol] 6.7 10*3/uL Normal 4-11 [facility] Comment on above: Performed By: #### C BC #### [facility] ([facility]) [address] [place] [address] VIR Lab - Other Lab Resultson Lab - Other Lab Results [id number]#1.00OTGT IFF [facility] - Other Lab Results [id number]#1.00OTGTI FF [facility] Outside Recordson 03-11-2025 Outside Records [id number]#1.00OTGTI [facility] URINALYSISon 03-11-2025 Bilirubin Ql (U) Negative Normal Negative [facility] Comment on above: Order Comment: Strai ght cath specimen Urine received without preservative - delays in transport may affect results. Interpret with caution and clinical correlation is recommended. Performed By: #### U A #### [facility] ([facility]) [address] [place] [address] VIR BLOOD/HGB Trace Abnormal Negative [facility] Comment on above: Order Comment: Strai ght cath specimen Urine received without preservative - delays in transport may affect results. Interpret with caution and clinical correlation is recommended. Performed By: #### U A #### [facility] ([facility]) [address] [place] [address] VIR Color (U) Yellow Normal Yellow [facility] Comment on above: Order Comment: Strai ght cath specimen Urine received without preservative - delays in transport may affect results. Interpret with caution and clinical correlation is recommended. Performed By: #### U A #### [facility] ([facility]) [address] [place] [address] VIR Glucose Ql (U) Negative Normal Negative [facility] Comment on above: Order Comment: Strai ght cath specimen Urine received without preservative - delays in transport may affect results. Interpret with caution and clinical correlation is recommended. Performed By: #### U A #### [facility] ([facility]) [address] [place] [address] VIR Ketones Ql (U) 100 mg/dL Abnormal Negative [facility] Comment on above: Order Comment: Strai ght cath specimen Urine received without preservative - delays in transport may affect results. Interpret with caution and clinical correlation is recommended. Performed By: #### U A #### [facility] ([facility]) [address] [place] [address] VIR Leukocyte esterase Test strip Ql (U) Negative Normal Negative [facility] Comment on above: Order Comment: Strai ght cath specimen Urine received without preservative - delays in transport may affect results. Interpret with caution and clinical correlation is recommended. Performed By: #### U A #### [facility] ([facility]) [address] [place] [address] VIR MUCOUS Present Abnormal None [facility] Comment on above: Order Comment: Strai ght cath specimen Urine received without preservative - delays in transport may affect results. Interpret with caution and clinical correlation is recommended. Performed By: #### U A #### [facility] ([facility]) [address] [place] [address] VIR Nitrite Ql (U) Negative Normal Negative [facility] Comment on above: Order Comment: Strai ght cath specimen Urine received without preservative - delays in transport may affect results. Interpret with caution and clinical correlation is recommended. Performed By: #### U A #### [facility] ([facility]) [address] [place] [address] VIR PH,URINE 6.0 Normal 5.0-8.5 [facility] Comment on above: Order Comment: Strai ght cath specimen Urine received without preservative - delays in transport may affect results. Interpret with caution and clinical correlation is recommended. Performed By: #### U A #### [facility] ([facility]) [address] [place] [address] VIR Protein Ql (U) 30 mg/dL Abnormal Negative [facility] Comment on above: Order Comment: Strai ght cath specimen Urine received without preservative - delays in transport may affect results. Interpret with caution and clinical correlation is recommended. Performed By: #### U A #### [facility] ([facility]) [address] [place] [address] VIR R.B.CELLS 3 Normal 0-5 [facility] Comment on above: Order Comment: Strai ght cath specimen Urine received without preservative - delays in transport may affect results. Interpret with caution and clinical correlation is recommended. Performed By: #### U A #### [facility] ([facility]) [address] [place] [address] VIR Specific gravity (U) [Rel density] 1.030 Normal 1.003-1.03 5 [facility] Comment on above: Order Comment: Strai ght cath specimen Urine received without preservative - delays in transport may affect results. Interpret with caution and clinical correlation is recommended. Performed By: #### U A #### [facility] ([facility]) [address] [place] [address] VIR SQUAMOUS EPITHELIUM 4 Normal 0-5 [facility] Comment on above: Order Comment: Strai ght cath specimen Urine received without preservative - delays in transport may affect results. Interpret with caution and clinical correlation is recommended. Performed By: #### U A #### [facility] ([facility]) [address] [place] [address] VIR TURBIDITY Clear Normal Clear [facility] Comment on above: Order Comment: Strai ght cath specimen Urine received without preservative - delays in transport may affect results. Interpret with caution and clinical correlation is recommended. Performed By: #### U A #### [facility] ([facility]) [address] [place] [address] VIR UROBILINOGEN <1.1 eu/dL Normal <1.1 eu/dL [facility] Comment on above: Order Comment: Strai ght cath specimen Urine received without preservative - delays in transport may affect results. Interpret with caution and clinical correlation is recommended. Performed By: #### U A #### [facility] ([facility]) [address] [place] [address] VIR W.B.CELLS 3 Normal 0-5 [facility] Comment on above: Order Comment: Strai ght cath specimen Urine received without preservative - delays in transport may affect results. Interpret with caution and clinical correlation is recommended. Performed By: #### U A #### [facility] ([facility]) [address] [place] [address] VIR BASIC METABOLIC PANELon 02-25 Anion gap [Moles/Vol] 8 mmol/L Normal [facility] Comment on above: Performed By: #### B MP #### [facility] ([facility]) [address] [place] [address] VIR Calcium [Mass/Vol] 8.8 mg/dL Normal 8.5-10.5 [facility] Comment on above: Performed By: #### B MP #### [facility] ([facility]) [address] [place] [address] VIR Chloride [Moles/Vol] 109 mmol/L Normal 98-109 [facility] Comment on above: Performed By: #### B MP #### [facility] ([facility]) [address] [place] [address] VIR CO2 [Moles/Vol] 25 mmol/L Normal 22-32 [facility] Comment on above: Performed By: #### B MP #### [facility] ([facility]) [address] [place] [address] VIR Creatinine [Mass/Vol] 0.80 mg/dL Normal 0.60-1.00 [facility] Comment on above: Result Comment: METH OD TRACEABLE TO IDMS STANDARD Performed By: #### B MP #### [facility] ([facility]) [address] [place] [address] VIR EGFR (CKD-EPI) NON-RACE DEPENDENT >^90 Normal >=60 [facility] Comment on above: Result Comment: Repo rted eGFR is based on the CKD-EPI 2020 equation that does not use a race coefficient. Performed By: #### B MP #### [facility] ([facility]) [address] [place] [address] VIR Glucose [Mass/Vol] 84 mg/dL Normal 65-99 [facility] Comment on above: Performed By: #### B MP #### [facility] ([facility]) [address] [address] VIR Potassium [Moles/Vol] 3.9 mmol/L Normal 3.5-5.0 [facility] Comment on above: Performed By: #### B MP #### [facility] ([facility]) [address] [place] [address] VIR Sodium [Moles/Vol] 142 mmol/L Normal 134-146 [facility] Comment on above: Performed By: #### B MP #### [facility] ([facility]) [address] [place] [address] VIR Urea nitrogen [Mass/Vol] 8 mg/dL Normal 5-23 [facility] Comment on above: Performed By: #### B MP #### [facility] ([facility]) [address] [place] [address] VIR CBC (NO DIFF)on 03-10-2025 Erythrocyte distribution width (RBC) [Ratio] 13.1 % Normal [facility] Comment on above: Performed By: #### C BC #### [facility] ([facility]) [address] [place] [address] VIR Hematocrit (Bld) [Volume fraction] 39.9 % Normal 35-47 [facility] Comment on above: Performed By: #### C BC #### [facility] ([facility]) [address] [place] [address] VIR Hemoglobin (Bld) [Mass/Vol] 13.6 g/dL Normal 12-15.5 [facility] Comment on above: Performed By: #### C BC #### [facility] ([facility]) [address] [facility] [address] [place] [address] VIR MCH (RBC) [Entitic mass] 30.8 pg Normal [facility] Comment on above: Performed By: #### C BC #### [facility] ([facility]) [address] [place] [address] VIR MCHC (RBC) [Mass/Vol] 34.0 g/dL Normal [facility] Comment on above: Performed By: #### C BC #### [facility] ([facility]) [address] [place] [address] VIR MCV (RBC) [Entitic vol] 91 fL Normal [facility] Comment on above: Performed By: #### C BC #### [facility] ([facility]) [address] [place] [address] VIR Platelet mean volume (Bld) [Entitic vol] 8.1 fL Normal [facility] Comment on above: Performed By: #### C BC #### [facility] ([facility]) [address] [place] [address] VIR Platelets (Bld) [#/Vol] 206 10*3/uL Normal 150-450 [facility] Comment on above: Performed By: #### C BC #### [facility] ([facility]) [address] [place] [address] VIR RBC COUNT 4.40 X10E12/L Normal 4.1-5.2 [facility] Comment on above: Performed By: #### C BC #### [facility] ([facility]) [address] [place] [address] VIR WBC (Bld) [#/Vol] 7.6 10*3/uL Normal 4-11 [facility] Comment on above: Performed By: #### C BC #### [facility] ([facility]) [address] [facility] [address] [place] [address] VIR CBC WITH AUTO DIFFERENTIALon 03-09-2025 BASOPHILS ABSOLUTE COUNT (10*3/UL) BY AUTOMATED COUNT 0.0 10*3/uL Normal 0.0-0.2 [facility] Comment on above: Performed By: #### C BCA #### [facility] ([facility]) [address] [place] [address] VIR BASOPHILS RELATIVE PERCENT BY AUTOMATED COUNT 0.3 % Normal [facility] Comment on above: Performed By: #### C BCA #### [facility] ([facility]) [address] [place] [address] VIR CELLAVISION DIFFERENTIAL TYPE AUTOMATED DIFFERENTIAL Normal [facility] Comment on above: Performed By: #### C BCA #### [facility] ([facility]) [address] [place] [address] VIR Eosinophils (Bld) [#/Vol] 0.0 10*3/uL Normal 0.0-0.4 [facility] Comment on above: Performed By: #### C BCA #### [facility] ([facility]) [address] [place] [address] VIR EOSINOPHILS RELATIVE PERCENT BY AUTOMATED COUNT 0.0 % Normal [facility] Comment on above: Performed By: #### C BCA #### [facility] ([facility]) [address] [place] [address] VIR Erythrocyte distribution width (RBC) [Ratio] 12.9 % Normal [facility] Comment on above: Performed By: #### C BCA #### [facility] ([facility]) [address] [place] [address] VIR Hematocrit (Bld) [Volume fraction] 42.4 % Normal 35-47 [facility] Comment on above: Performed By: #### C BCA #### [facility] ([facility]) [address] [facility] [address] [place] [address] VIR Hemoglobin (Bld) [Mass/Vol] 14.4 g/dL Normal 12-15.5 [facility] Comment on above: Performed By: #### C BCA #### [facility] ([facility]) [address] [place] [address] VIR LYMPHOCYTES ABSOLUTE COUNT (10*3/UL) BY AUTOMATED COUNT 1.8 10*3/uL Normal 1.0-3.5 [facility] Comment on above: Performed By: #### C BCA #### [facility] ([facility]) [address] [facility] [address] [place] [address] VIR LYMPHOCYTES RELATIVE PERCENT BY AUTOMATED COUNT 20.7 % Normal [facility] Comment on above: Performed By: #### C BCA #### [facility] ([facility]) [address] [place] [address] VIR MCH (RBC) [Entitic mass] 30.7 pg Normal [facility] Comment on above: Performed By: #### C BCA #### [facility] ([facility]) [address] [place] [address] VIR MCHC (RBC) [Mass/Vol] 33.9 g/dL Normal [facility] Comment on above: Performed By: #### C BCA #### [facility] ([facility]) [address] [place] [address] VIR MCV (RBC) [Entitic vol] 91 fL Normal [facility] Comment on above: Performed By: #### C BCA #### [facility] ([facility]) [address] [place] [address] VIR MONOCYTES ABSOLUTE COUNT (10*3/UL) BY AUTOMATED COUNT 0.7 10*3/uL Normal 0.0-0.9 [facility] Comment on above: Performed By: #### C BCA #### [facility] ([facility]) [address] [place] [address] VIR MONOCYTES RELATIVE PERCENT BY AUTOMATED COUNT 7.5 % Normal [facility] Comment on above: Performed By: #### C BCA #### [facility] ([facility]) [address] [place] [address] VIR NEUTROPHILS ABSOLUTE COUNT BY AUTOMATED COUNT 6.3 10*3/uL Normal 1.5-6.6 [facility] Comment on above: Performed By: #### C BCA #### [facility] ([facility]) [address] [place] [address] VIR NEUTROPHILS RELATIVE PERCENT BY AUTOMATED COUNT 71.5 % Normal [facility] Comment on above: Performed By: #### C BCA #### [facility] ([facility]) [address] [place] [address] VIR Platelet mean volume (Bld) [Entitic vol] 8.3 fL Normal [facility] Comment on above: Performed By: #### C BCA #### [facility] ([facility]) [address] [place] [address] VIR Platelets (Bld) [#/Vol] 253 10*3/uL Normal 150-450 [facility] Comment on above: Performed By: #### C BCA #### [facility] ([facility]) [address] [place] [address] VIR RBC COUNT 4.69 X10E12/L Normal 4.1-5.2 [facility] Comment on above: Performed By: #### C BCA #### [facility] ([facility]) [address] [place] [address] VIR WBC (Bld) [#/Vol] 8.9 10*3/uL Normal 4-11 [facility] Comment on above: Performed By: #### C BCA #### [facility] ([facility]) [address] [place] [address] VIR COMPREHENSIVE METABOLIC PANE Basim 03-09-2025 Albumin [Mass/Vol] 4.4 g/dL Normal 3.2-5.3 [facility] Comment on above: Performed By: #### C MP #### [facility] ([facility]) [address] [place] [address] VIR ALP [Catalytic activity/Vol] 65 U/L Normal 39-130 [facility] Comment on above: Performed By: #### C MP #### [facility] ([facility]) [address] [place] [address] VIR ALT [Catalytic activity/Vol] 9 U/L Normal <=31 [facility] Comment on above: Performed By: #### C MP #### [facility] ([facility]) [address] [place] [address] VIR Anion gap [Moles/Vol] 10 mmol/L Normal [facility] Comment on above: Performed By: #### C MP #### [facility] ([facility]) [address] [place] [address] VIR AST [Catalytic activity/Vol] 28 U/L Normal <=41 [facility] Comment on above: Performed By: #### C MP #### [facility] ([facility]) [address] [place] [address] VIR Bilirubin [Mass/Vol] 0.5 mg/dL Normal 0.3-1.2 [facility] Comment on above: Performed By: #### C MP #### [facility] ([facility]) [address] [place] [address] VIR Calcium [Mass/Vol] 9.0 mg/dL Normal 8.5-10.5 [facility] Comment on above: Performed By: #### C MP #### [facility] ([facility]) [address] [place] [address] VIR Chloride [Moles/Vol] 108 mmol/L Normal 98-109 [facility] Comment on above: Performed By: #### C MP #### [facility] ([facility]) [address] [place] [address] VIR CO2 [Moles/Vol] 25 mmol/L Normal 22-32 [facility] Comment on above: Performed By: #### C MP #### [facility] ([facility]) [address] [place] [address] VIR Creatinine [Mass/Vol] 0.76 mg/dL Normal 0.60-1.00 [facility] Comment on above: Result Comment: METH OD TRACEABLE TO IDMS STANDARD Performed By: #### C MP #### [facility] ([facility]) [address] [place] [address] VIR EGFR (CKD-EPI) NON-RACE DEPENDENT >^90 Normal >=60 [facility] Comment on above: Result Comment: Repo rted eGFR is based on the CKD-EPI 2020 equation that does not use a race coefficient. Performed By: #### C MP #### [facility] ([facility]) [address] [place] [address] VIR Glucose [Mass/Vol] 101 mg/dL High 65-99 [facility] Comment on above: Performed By: #### C MP #### [facility] ([facility]) [address] [place] [address] VIR Potassium [Moles/Vol] 4.5 mmol/L Normal 3.5-5.0 [facility] Comment on above: Result Comment: R-Sp ecimen moderately hemolyzed, results increased Performed By: #### C MP #### [facility] ([facility]) [address] [place] [address] VIR Protein [Mass/Vol] 7.4 g/dL Normal 6.0-8.0 [facility] Comment on above: Performed By: #### C MP #### [facility] ([facility]) [address] [place] [address] VIR Sodium [Moles/Vol] 143 mmol/L Normal 134-146 [facility] Comment on above: Performed By: #### C MP #### [facility] ([facility]) [address] [place] [address] VIR Urea nitrogen [Mass/Vol] 8 mg/dL Normal 5-23 [facility] Comment on above: Performed By: #### C MP #### [facility] ([facility]) [address] [place] [address] VIR ER EXTRA URINEon 03-09-2025 ER EXTRA URINE ERU ER EXTRA URINE Cancelled Normal [facility] Outside Recordson 02-27-2025 Outside Records [id number]#1.00OTGT IFF Normal [facility] CBC WITH AUTO DIFFERENTIALon 02-16-2025 BASOPHILS ABSOLUTE COUNT (10*3/UL) BY AUTOMATED COUNT 0.1 10*3/uL Normal 0.0-0.2 [facility] Comment on above: Performed By: #### C BCA #### [facility] ([address] [place] [address] VIR BASOPHILS RELATIVE PERCENT BY AUTOMATED COUNT 0.6 % Normal [facility] Comment on above: Performed By: #### C BCA #### [facility] ([address] [place] [address] VIR CELLAVISION DIFFERENTIAL TYPE AUTOMATED DIFFERENTIAL Normal [facility] Comment on above: Performed By: #### C BCA #### [facility] ([address] [address] VIR Eosinophils (Bld) [#/Vol] 0.0 10*3/uL Normal 0.0-0.4 [facility] Comment on above: Performed By: #### C BCA #### [facility] ([address] [address] VIR EOSINOPHILS RELATIVE PERCENT BY AUTOMATED COUNT 0.1 % Normal [facility] Comment on above: Performed By: #### C BCA #### [facility] ([address] [address] VIR Erythrocyte distribution width (RBC) [Ratio] 13.4 % Normal [facility] Comment on above: Performed By: #### C BCA #### [facility] ([address] [address] VIR Hematocrit (Bld) [Volume fraction] 41.6 % Normal 35-47 [facility] Comment on above: Performed By: #### C BCA #### [facility] ([address] [address] VIR Hemoglobin (Bld) [Mass/Vol] 14.3 g/dL Normal 12-15.5 [facility] Comment on above: Performed By: #### C BCA #### [facility] ([address] [address] VIR LYMPHOCYTES ABSOLUTE COUNT (10*3/UL) BY AUTOMATED COUNT 2.6 10*3/uL Normal 1.0-3.5 [facility] Comment on above: Performed By: #### C BCA #### [facility] ([address] [address] VIR LYMPHOCYTES RELATIVE PERCENT BY AUTOMATED COUNT 23.2 % Normal [facility] Comment on above: Performed By: #### C BCA #### [facility] ([address] [place] [address] VIR MCH (RBC) [Entitic mass] 30.6 pg Normal [facility] Comment on above: Performed By: #### C BCA #### [facility] ([address] [place] [address] VIR MCHC (RBC) [Mass/Vol] 34.3 g/dL Normal [facility] Comment on above: Performed By: #### C BCA #### [facility] ([address] [address] VIR MCV (RBC) [Entitic vol] 89 fL Normal [facility] Comment on above: Performed By: #### C BCA #### [facility] ([address] [address] VIR MONOCYTES ABSOLUTE COUNT (10*3/UL) BY AUTOMATED COUNT 0.7 10*3/uL Normal 0.0-0.9 [facility] Comment on above: Performed By: #### C BCA #### [facility] ([address] [address] VIR MONOCYTES RELATIVE PERCENT BY AUTOMATED COUNT 5.8 % Normal [facility] Comment on above: Performed By: #### C BCA #### [facility] ([address] [place] [address] VIR NEUTROPHILS ABSOLUTE COUNT BY AUTOMATED COUNT 7.9 10*3/uL High 1.5-6.6 [facility] Comment on above: Performed By: #### C BCA #### [facility] ([address] [address] VIR NEUTROPHILS RELATIVE PERCENT BY AUTOMATED COUNT 70.3 % Normal [facility] Comment on above: Performed By: #### C BCA #### [facility] ([address] [place] [address] VIR Platelet mean volume (Bld) [Entitic vol] 8.3 fL Normal [facility] Comment on above: Performed By: #### C BCA #### [facility] ([facility]) [address] [place] [address] [place] [address] VIR Platelets (Bld) [#/Vol] 228 10*3/uL Normal 150-450 [facility] Comment on above: Performed By: #### C BCA #### [facility] ([facility]) [address] [place] [address]. [place] [address] VIR RBC COUNT 4.66 X10E12/L Normal 4.1-5.2 [facility] Comment on above: Performed By: #### C BCA #### [facility] ([facility]) [address] [place], [place] [address]. [place] [address] VIR WBC (Bld) [#/Vol] 11.3 10*3/uL High 4-11 [facility] Comment on above: Performed By: #### C BCA #### [facility] ([facility]) [address] [place] [address]. [place] [address] VIR COMPREHENSIVE METABOLIC PANE Basim 02-16-2025 Albumin [Mass/Vol] 4.4 g/dL Normal 3.2-5.3 [facility] Comment on above: Performed By: #### 6 30-4 #### [facility] ([id number]) [address] [place] [address] ALP [Catalytic activity/Vol] 64 U/L Normal 39-130 [facility] Comment on above: Performed By: #### 6 30-4 #### [facility] ([id number]) [address] [place] [address] ALT [Catalytic activity/Vol] 12 U/L Normal <=31 [facility] Comment on above: Performed By: #### 6 30-4 #### [facility] ([id number]) [address], [address] [place] [address] Anion gap [Moles/Vol] 5 mmol/L Normal [facility] Comment on above: Performed By: #### 6 30-4 #### [facility] ([id number]) [address], [address] [place] [address] AST [Catalytic activity/Vol] 24 U/L Normal <=41 [facility] Comment on above: Performed By: #### 6 30-4 #### [facility] ([id number]) [address], [address] [place] [address] Bilirubin [Mass/Vol] 0.7 mg/dL Normal 0.3-1.2 [facility] Comment on above: Performed By: #### 6 30-4 #### [facility] ([id number]) [address] [place] [address] Calcium [Mass/Vol] 8.9 mg/dL Normal 8.5-10.5 [facility] Comment on above: Performed By: #### 6 30-4 #### [facility] ([id number]) [address] [place] [address] Chloride [Moles/Vol] 110 mmol/L High 98-109 [facility] Comment on above: Performed By: #### 6 30-4 #### [facility] ([id number]) [address] [place] [address] CO2 [Moles/Vol] 24 mmol/L Normal 22-32 [facility] Comment on above: Performed By: #### 6 30-4 #### [facility] ([id number]) [address] [place] [address] Creatinine [Mass/Vol] 0.74 mg/dL Normal 0.70-1.00 [facility] Comment on above: Result Comment: METH OD TRACEABLE TO IDMS STANDARD Performed By: #### 6 30-4 #### [facility] ([id number]) [address] [place] [address] EGFR (CKD-EPI) NON-RACE DEPENDENT >^90 Normal >=60 [facility] Comment on above: Result Comment: eGFR not reported due to non-numeric value for Creatinine. Reported eGFR is based on the CKD-EPI 2020 equation that does not use a race coefficient. Performed By: #### 6 30-4 #### [facility] ([id number]) [address] [place] [address] Glucose [Mass/Vol] 99 mg/dL Normal 65-99 [facility] Comment on above: Performed By: #### 6 30-4 #### [facility] ([id number]) [address] [address] [place] [address] Potassium [Moles/Vol] 3.5 mmol/L Normal 3.5-5.0 [facility] Comment on above: Performed By: #### 6 30-4 #### [facility] ([id number]) [address] [place] [address] Protein [Mass/Vol] 7.3 g/dL Normal 6.0-8.0 [facility] Comment on above: Performed By: #### 6 30-4 #### [facility] ([id number]) [address] [place] [address] Sodium [Moles/Vol] 139 mmol/L Normal 134-146 [facility] Comment on above: Performed By: #### 6 30-4 #### [facility] ([id number]) [address] [place] [address] Urea nitrogen [Mass/Vol] 9 mg/dL Normal 5-23 [facility] Comment on above: Performed By: #### 6 30-4 #### [facility] ([id number]) [address] [place] [address] D-DIMERon 02-16-2025 D DIMER <^150 Normal 1-255 [facility] Comment on above: Result Comment: Resu lts <255 ng/mL DDU: The presensence of a VTE can safely be excluded with a negative D-Dimer result and Wells score. A negative result doesn't exclude the possibility of DIC. The test should be repeated along with other diagnostic tests if the patient's symptoms persist or worsen. Performed By: #### 6 30-4 #### [facility] ([id number]) [address] [place] [address] LACTATE W/ REFLEXon 02-17-20 25 LACTATE W/REFLEX 0.8 mmol/L Normal 0.4-2.0 [facility] Comment on above: Order Comment: Resul t did not trigger repeat Lactate,re-order if needed. Performed By: #### 6 30-4 #### [facility] ([id number]) [address] [place] [address] MAGNESIUMon 02-16-2025 Magnesium [Mass/Vol] 2.0 mg/dL Normal 1.8-2.6 [facility] Comment on above: Performed By: #### 6 30-4 #### [facility] ([id number]) [address] [place] [address] SARS/FLU A+B/RSV BY NAAT/MOL ECULAR (M4RT COLLECTION TUBE)on 02-16-2025 SARS/FLU A+B/RSV BY NAAT/MOLECULAR (M4RT COLLECTION TUBE) FLU A PCR Negative FLU B PCR Negative RSV BY PCR Negative SARS COV 2 BY PCR Not Detected Normal Not Detected [facility] Comment on above: Order Comment: The [employer] SARS-CoV-2/Flu/RSV Plus test is a rapid, [...] operators who are performing tests using either [employer] or [employer] systems and is limited to laboratories that [...] resolved with specimen repeat.Fact Sheet for Healthcare Providers:https://www.fda.gov/media/906975/downloadFact Sheet for Patients:https://www.fda.gov/media/093535/download Performed By: #### 6 30-4 #### [facility] ([id number]) [address] [place] [address] TROP I, HIGH SENSITIVITY 1 H OURon 02-16-2025 TROPONIN I, HIGH SENSITIVITY 3 ng/L Normal <16 [facility] Comment on above: Performed By: #### 6 30-4 #### [facility] ([id number]) [address] [place] [address] TROPONIN I, HIGH SENSITIVITY 0 HOURon 02-16-2025 TROPONIN I, HIGH SENSITIVITY 3 ng/L Normal <16 [facility] Comment on above: Performed By: #### 6 30-4 #### [facility] ([id number]) [address] [place] [address] [facility] ----- BETHANIEKARIS M ([id number]) 2 F Date Time Provider Department 02/12/25 GALE BASSETT [facility] During your visit today, we recorded the following information about you: Ekta Gomez RN 02/12/2025 10:05 AM Signed Patient calling [...] method. Please advise further recommendations. Gale Bassett, [employer].MANUFACTURING INSPECTOR 02/14/2025 3:10 PM Signed CGM is not [...] Encounter Status:Closed by JESSI SANFORD on 02/14/25 [facility] Felix 02-05-2025 AMELIAN Telephone ([facility]) ----- BETHANIEKARIS ([id number]) 2 F Date Time Provider Department 02/05/25 GALE BASSETT During your visit today, we recorded the following information about you: Fabienne Britt 02/05/2025 12:33 PM Signed Drug Gardiner is calling Gale Bassett APRN.MANUFACTURING INSPECTOR today with concern regarding Medication Problem (Blood-Glucose Sensor (FREESTYLE GOYO 3 PLUS SENSOR) efrain). Patient has the Freestyle Goyo 2 Device. Can this script be changed to the Freestyle Goyo 2 Plus sensors so the patient will not need a new device? Please advise. Patient has been identified by name and birthdate. Duration of symptoms: N/A Person calling: pharmacy: [facility] at: [phone] Was an appointment scheduled: No Closing statement: Results or non-symptom based questions: Thank you for calling [facility], your call will be returned within the [...] Encounter Stat (more content not included)... Normal [facility] Orders Onlyon 01-29-2025 Orders Only [id number] Juan Jose Kovacs 2000 F Date Provider Department Center 01/29/2025 EMILY TREJO [facility] Family History Family Status - Relation Status Age at Mother Alive Father Alive Sister Alive Brother Alive Normal [facility] Consultation/Specialist Note on 01-24-2025 Consultation/Specialis t Note [id number]#1.00OTGTI FF Normal [facility] ECG 12 Leadon 01-23-2025 Normal sinus rhythm with right axis deviation [facility] Work Phone: Outside Recordson 01-14-2025 Outside Records [id number]#1.00OTGTI [facility] Rad - Other Radiology Report on 01-14-2025 Rad - Other Radiology Report [id number]#1.00OTGTI [facility] (DDQ[facility] ----- KARIS KOVACS ([id number]) 2 F Date Time Provider Department 01/10/25 [...] Encounter Status:Closed by LUZ COX on 01/10/25 [facility] 01-07-2025 [facility] Telephone ([facility]) ----- KARIS KOVACS ([id number]) 2 F Date Time Provider Department 01/07/25 [facility] During your visit today, we recorded the following information about you: Lester Leonehansara TUBING MACHINE TENDER 01/07/2025 1:45 PM Signed Endocrinology AND Metabolism Social Work Progress Note Provider Action / FYI N/A Karis Kovacs [id number] Type of Contact: telephone Endocrine TUBING MACHINE TENDER Referral Reason: Appointment Scheduling Assistance/General Appointment Needs Contact Made?: No- outside maintenance worker left a voicemail with her name, number, and requesting a return phone call. Note/Intervention: outside maintenance worker calls Patient to offer assistance making follow up appointments as ordered. outside maintenance worker leaves Patient a voicemail with callback number and sends a [employer] message. [facility] referral placed: No Signature: PEG Benton, TUBING MACHINE TENDER Patient Name: Karis Kovacs Date: 01/07/2025 Time: 1:36 PM Pager/Contact #: [phone] During this patient contact I spent approximately 10 minutes in reviewing the patient's chart and counseling regarding community resources and coordinating care. Gale Bassett, ROSA.MANUFACTURING INSPECTOR 01/10/2025 12:04 PM Signed Addended by: GALE [...] Order(s):XR MODIFIED BARIUM SWALLOW W SPEECH THERAPY [[id number]] Order #: [id number] FUTURE Prescriptions as of 01/10/2025 - Blood-Glucose [...] 10/08/2024 Encounter (more content not included)... Normal [facility] CNOVon 01-04-2025 CNOV Office Visit (ENDOCC ) ----- KARIS KOVACS ([id number]) 2 F Date Time Provider Department 01/04/25 3:00 PM GALE BASSETT ENDOC During your visit today, we recorded the following information about you: Pulse Blood pressure Weight Height 77/minute 101/66 41.7 kg 1.575 m Last Period 01/02/25 Gale Bassett, SHOP COOPER.MANUFACTURING INSPECTOR 01/04/2025 6:16 PM Signed Endocrinology Follow Up [...] for most recent 14 days: CGM Type: First Aid Shot Therapy G7 CGM recording adequate for interpretation: Yes [...] is no improvement, a referral to another tank wagon operator will be considered. IN OFFICE TODAY High Ketone Levels: - Recent lab results showed (more content not included)... Normal [facility] HEMOGLOBIN A1C (POC)on 01-04 HbA1c (Bld) [Mass fraction] 5.4 % 4.3 - 5.6 % [facility] Comment on above: Location:[facility], [address] [place] [address] , [place], [place], [address] Point of care (POC) Hemoglobin A1c (HGBA1C) [...] specific diabetes management situations: The POC device worm picker provides a normal range of 4.2% to 6.5% for the HGBA1C POC test. However, the [place] [employer] guidelines indicate that patients with [...] anemia) that alter red blood cell lifespan. [facility] Outside Recordson 12-31-2024 Outside Records [id number]#1.00OTG TIFF [facility] Outside Recordson 12-19-2024 Outside Records [id number]#1.00OTG TIFF [facility] CBC WITH AUTO DIFFERENTIALon 12-15-2024 BASOPHILS ABSOLUTE COUNT (10*3/UL) BY AUTOMATED COUNT 0.0 10*3/uL Normal 0.0-0.2 [facility] Comment on above: Performed By: #### C BCA #### [facility] ([facility]) [address] [place] [address] VIR BASOPHILS RELATIVE PERCENT BY AUTOMATED COUNT 0.5 % Normal [facility] Comment on above: Performed By: #### C BCA #### [facility] ([facility]) [address] [place] [place] [address] VIR CELLAVISION DIFFERENTIAL TYPE AUTOMATED DIFFERENTIAL Normal [facility] Comment on above: Performed By: #### C BCA #### [facility] ([address] [place] [address] VIR Eosinophils (Bld) [#/Vol] 0.0 10*3/uL Normal 0.0-0.4 [facility] Comment on above: Performed By: #### C BCA #### [facility] ([address] [place] [address] VIR EOSINOPHILS RELATIVE PERCENT BY AUTOMATED COUNT 0.2 % Normal [facility] Comment on above: Performed By: #### C BCA #### [facility] ([address] [place] [address] VIR Erythrocyte distribution width (RBC) [Ratio] 13.1 % Normal [facility] Comment on above: Performed By: #### C BCA #### [facility] ([address] [address] VIR Hematocrit (Bld) [Volume fraction] 39.7 % Normal 35-47 [facility] Comment on above: Performed By: #### C BCA #### [facility] ([address] [place] [address] VIR Hemoglobin (Bld) [Mass/Vol] 13.7 g/dL Normal 12-15.5 [facility] Comment on above: Performed By: #### C BCA #### [facility] ([address] [place] [address] VIR LYMPHOCYTES ABSOLUTE COUNT (10*3/UL) BY AUTOMATED COUNT 2.4 10*3/uL Normal 1.0-3.5 [facility] Comment on above: Performed By: #### C BCA #### [facility] ([address] [address] VIR LYMPHOCYTES RELATIVE PERCENT BY AUTOMATED COUNT 29.8 % Normal [facility] Comment on above: Performed By: #### C BCA #### [facility] ([address] [place] [address] VIR MCH (RBC) [Entitic mass] 30.9 pg Normal [facility] Comment on above: Performed By: #### C BCA #### [facility] ([facility]) [address] [place] [address]. [place] [address] VIR MCHC (RBC) [Mass/Vol] 34.5 g/dL Normal [facility] Comment on above: Performed By: #### C BCA #### [facility] ([address] [place] [address] VIR MCV (RBC) [Entitic vol] 90 fL Normal [facility] Comment on above: Performed By: #### C BCA #### [facility] ([address] [place] [address] VIR MONOCYTES ABSOLUTE COUNT (10*3/UL) BY AUTOMATED COUNT 0.5 10*3/uL Normal 0.0-0.9 [facility] Comment on above: Performed By: #### C BCA #### [facility] ([address] [place] [address] VIR MONOCYTES RELATIVE PERCENT BY AUTOMATED COUNT 5.7 % Normal [facility] Comment on above: Performed By: #### C BCA #### [facility] ([address] [place] [address] VIR NEUTROPHILS ABSOLUTE COUNT BY AUTOMATED COUNT 5.1 10*3/uL Normal 1.5-6.6 [facility] Comment on above: Performed By: #### C BCA #### [facility] ([address] [place] [address] VIR NEUTROPHILS RELATIVE PERCENT BY AUTOMATED COUNT 63.8 % Normal [facility] Comment on above: Performed By: #### C BCA #### [facility] ([address] [place] [address] VIR Platelet mean volume (Bld) [Entitic vol] 8.2 fL Normal [facility] Comment on above: Performed By: #### C BCA #### [facility] ([facility]) [facility] [address] [place] [address] VIR Platelets (Bld) [#/Vol] 233 10*3/uL Normal 150-450 [facility] Comment on above: Performed By: #### C BCA #### [facility] ([address] [place] [address] VIR RBC COUNT 4.43 X10E12/L Normal 4.1-5.2 [facility] Comment on above: Performed By: #### C BCA #### [facility] ([address] [place] [address] VIR WBC (Bld) [#/Vol] 8.0 10*3/uL Normal 4-11 [facility] Comment on above: Performed By: #### C BCA #### [facility] ([address] [place] [address] VIR COMPREHENSIVE METABOLIC PANE Basim 12-15-2024 Albumin [Mass/Vol] 4.5 g/dL Normal 3.2-5.3 [facility] Comment on above: Performed By: #### C MP #### [facility] ([address] [place] [address] VIR ALP [Catalytic activity/Vol] 52 U/L Normal 39-130 [facility] Comment on above: Performed By: #### C MP #### [facility] ([address] [place] [address] VIR ALT [Catalytic activity/Vol] 10 U/L Normal <=31 [facility] Comment on above: Performed By: #### C MP #### [facility] ([place] [address] [place] [address] VIR Anion gap [Moles/Vol] 6 mmol/L Normal [facility] Comment on above: Performed By: #### C MP #### [facility] ([address] [place] [address] VIR AST [Catalytic activity/Vol] 20 U/L Normal <=41 [facility] Comment on above: Performed By: #### C MP #### [facility] ([address] [place] [address] VIR Bilirubin [Mass/Vol] 0.6 mg/dL Normal 0.3-1.2 [facility] Comment on above: Performed By: #### C MP #### [facility] ([address] [place] [address] VIR Calcium [Mass/Vol] 9.2 mg/dL Normal 8.5-10.5 [facility] Comment on above: Performed By: #### C MP #### [facility] ([address] [place] [address] VIR Chloride [Moles/Vol] 114 mmol/L High 98-109 [facility] Comment on above: Performed By: #### C MP #### [facility] ([address] [place] [address] VIR CO2 [Moles/Vol] 21 mmol/L Low 22-32 [facility] Comment on above: Performed By: #### C MP #### [facility] ([address] [place] [address] VIR Creatinine [Mass/Vol] 0.68 mg/dL Low 0.70-1.00 [facility] Comment on above: Result Comment: METH OD TRACEABLE TO IDMS STANDARD Performed By: #### C MP #### [facility] ([address] [place] [address] VIR EGFR (CKD-EPI) NON-RACE DEPENDENT >^90 Normal >=60 [facility] Comment on above: Result Comment: eGFR not reported due to non-numeric value for Creatinine. Reported eGFR is based on the CKD-EPI 2020 equation that does not use a race coefficient. Performed By: #### C MP #### [facility] ([place] [address] [place] [address] VIR Glucose [Mass/Vol] 98 mg/dL Normal 65-99 [facility] Comment on above: Performed By: #### C MP #### [facility] ([address] [place] [address] VIR Potassium [Moles/Vol] 3.5 mmol/L Normal 3.5-5.0 [facility] Comment on above: Performed By: #### C MP #### [facility] ([address] [place] [address] VIR Protein [Mass/Vol] 7.2 g/dL Normal 6.0-8.0 [facility] Comment on above: Performed By: #### C MP #### [facility] ([address] [place] [address] VIR Sodium [Moles/Vol] 141 mmol/L Normal 134-146 [facility] Comment on above: Performed By: #### C MP #### [facility] ([address] [place] [address] VIR Urea nitrogen [Mass/Vol] 10 mg/dL Normal 5-23 [facility] Comment on above: Performed By: #### C MP #### [facility] ([address] [place] [address] VIR ETHANOLon 12-15-2024 Ethanol [Mass/Vol] mg/dL Normal <=0.080 [facility] Comment on above: Result Comment: This report is intended for use in clinical monitoring or management of patients. Performed By: #### A LCO #### [facility] ([address] [place] [address] VIR LACTATE W/ REFLEXon 12-16-19 25 LACTATE W/REFLEX 1.5 mmol/L Normal 0.4-2.0 [facility] [place] Comment on above: Order Comment: Resul t did not trigger repeat Lactate, re-order if needed. Performed By: #### L ACTS #### [facility] ([address] [place] [address] VIR MAGNESIUMon 12-15-2024 Magnesium [Mass/Vol] 2.1 mg/dL Normal 1.8-2.6 [facility] Comment on above: Performed By: #### M G #### [facility] ([address] [place] [address] VIR TROP I, HIGH SENSITIVITY 1 H OURon 12-15-2024 TROPONIN I, HIGH SENSITIVITY <^2 Normal <16 [facility] Comment on above: Performed By: #### T NIHS1 #### [facility] ([address] [place] [address] VIR TROPONIN I, HIGH SENSITIVITY 0 HOURon 12-15-2024 TROPONIN I, HIGH SENSITIVITY <^2 Normal <16 [facility] Comment on above: Performed By: #### T NIHS0 #### [facility] ([address] [place] [address] VIR 36on 12-12-2024 36 Patient stopped in [...] if you want anything else done Normal [facility] Orders Onlyon 11-29-2024 Orders Only [id number] Juan Jose Kovacs 2000 F Date Provider Department Center 11/29/2024 EMILY TREJO HVC CARD [facility] Family History Family Status - Relation Status Age at Mother Alive Father Alive Sister Alive Brother Alive Normal [facility] Documentationon 11-28-2024 Documentation [id number] Juan Jose Kovacs 2000 F Date Provider Department Center 11/28/2024 FREDO BEJARANO MP NEURO Medical [facility] Family History Family Status - Relation Status Age at Mother Alive Father Alive Sister Alive Brother Alive Normal [facility] HPon 11-28-2024 [facility] Electrophysiology Consult Note Reason for visit: [...] yesterday due to vomiting. LOOP reveals logn MI tachycardia in 170bpm. Many episodes noted. Review [...] questionable seizures. She was initially admitted to [facility] and then thereafter transferred to [facility]. Reportedly he had [id number] seizures while he was undergoing his physical [...] on August 10 that he went to [facility]. EKG that performed shows evidence of [...] Use: Not At Risk (11/25/2023) Received from [employer] Frequency of Alcohol Consumption: Monthly or less Average Number of Drinks: 1 or 2 Frequency of Binge Drinking: Never Financial Resource Strain: Not on file Food Insecurity: No Food Insecurity (08/16/2024) Received from [employer] Hunger Screening Within the past 12 (more content not included)... [facility] NURSNOTEon 11-28-2024 NURSNOTE RN educated pt on [...] off of unit with all of belongings. [facility] Orders Onlyon 11-22-2024 Orders Only [id number] Juan Jose Kovacs 2000 F Date Provider Department Center 11/22/2024 [id number], HISTORICAL CARD [facility] Family History Family Status - Relation Status Age at Mother Alive Father Alive Sister Alive Brother Alive [facility] Orders Onlyon 11-21-2024 Orders Only [id number] Juan Jose Kovacs 2000 F Date Provider Department Center 11/21/2024 MAY HERNANDEZ [facility] Family History Family Status - Relation Status Age at Mother Alive Father Alive Sister Alive Brother Alive [facility] NM gastric emptying studyon 11-01-2024 NM gastric emptying study [facility] [place] [address] Nuclear Medicine Report Signed Patient: Karis Kovacs MR#: [id number] 668 : 2000 Acct:[id number] Age/Sex: 24 / F ADM Date: 11/01/24 Loc: [place] Room: Type: [facility] Attending Dr: Tere Solis DO Copies to: DO Aman Winters Jr, DO Ordering Provider: Tere Solis DO Date of Service: 11/01/24 [place] gastric emptying study: R11.2 - Nausea with [...] of the radiotracer remained within the stomach. [place] gastric emptying study IMPRESSION: SCINTIGRAPHIC EVIDENCE OF GASTROPARESIS. Impression dictated by: Aman So Jr., D.O. 11/01/2024 1:24 PM Dictation Location: [facility]- Transcribed By: [facility] 11/01/24 1324 Dictated By: Aman So Jr, DO 11/01/24 1322 Signed By: 11/01/24 1324 Normal [facility] Office Visiton 10-16-2024 Follow-up visit [id number] Juan Jose Kovacs 2000 F Date Provider Department Center 10/16/2024 JOJO AMADO EMANI Bolaños Family History Family Status - Relation Status Age at Mother Alive Father Alive Sister Alive Brother Alive Level of Service:54082 MI OFFICE/OUTPATIENT ESTABLISHED HIGH MDM 40 MIN Normal [facility] Pathology study report docum entOrdered By: Kavin Sanford on 10-16-2024 Pathology study [facility] Other Amphetamine Screen Ql (U)Ord ered By: Tere Solis on 10-15-2024 Amphetamines Ql (U) Amphetamines screen Negativ e [facility] Barbiturates [Presence] in U rine by Screen methodOrdered By: Tere Solis on 10-15-2024 Barbiturates Screen Ql (U) Barbiturates [Presence] in Urine by Screen method Negative [facility] Benzodiazepines Screen Ql (U )Ordered By: Tere Solis on 10-15-2024 Benzodiazepines Ql (U) Benzodiazepines [Presence] in Urine by Screen method Negative [facility] Benzoylecgonine [Presence] i n Urine by Screen methodOrdered By: Tere Solis on 10-15-2024 Benzoylecgonine Screen Ql (U) Benzoylecgonine [Presence] in Urine by Screen method Negative [facility] Cannabinoids [Presence] in U rine by Screen methodOrdered By: Tere Solis on 10-15-2024 Cannabinoids Screen Ql (U) Cannabinoids [Presence] in Urine by Screen method High Negative [facility] Comment on above: These are unconfirme d results and should not be used for legal purposes. Drug Cut-Off Concentration: AMPH 1000 ng/mL ELMER 200 ng/mL BRICE 200 ng/mL COCM 300 ng/mL OP 300 ng/mL PCP 25 ng/mL THC 20 ng/mL Drug Screen,Urineon 10-16-19 Amphetamine Screen,Urine Negative Normal Negative [facility] Comment on above: Performed By: #### U [facility] #### [facility] [address] [place] [address] [place] Barbiturate Screen,Urine Negative Normal Negative [facility] Comment on above: Performed By: #### U [facility] #### [facility] [address] [place] [id number] [place] Benzodiazepines Screen,Urine Negative Normal Negative [facility] Comment on above: Performed By: #### U [facility] #### [facility] [address] [place] [address] [place] Cannabinoid Screen,Urine Positive High Negative [facility] Comment on above: Result Comment: Thes e are unconfirmed results and should not be used for legal purposes. Drug Cut-Off Concentration: AMPH 1000 ng/mL ELMER 200 ng/mL BRICE 200 ng/mL COCM 300 ng/mL OP 300 ng/mL PCP 25 ng/mL THC 20 ng/mL PERFORMED BY: [place] [address] PATHOLOGIST MILK PASTEURIZER ISABELLA CALVO M.D. Performed By: #### U RDS, [facility] #### [address] Cocaine Screen,Urine Negative Normal Negative [facility] Comment on above: Performed By: #### U RDS, CG #### [address] Opiate Screen,Urine Negative Normal Negative [facility] Comment on above: Performed By: #### U [facility], [facility] #### [address] Phencyclidine Screen,Urine Negative Normal Negative [facility] Comment on above: Performed By: #### U [facility]DS, [facility] #### [address] HCG ( test) IA.rapi d Ql (U)Ordered By: Tere Solis on 10-15-2024 HCG ( test) Ql (U) Urine human chorionic gonadotropin (hCG) detection by immunoassay [facility] HCG,Urineon 10-15-2024 Beta HCG ( test) Ql (U) Negative Normal [facility] Comment on above: Result Comment: PERF ORMED BY: [place] [address] PATHOLOGIST MILK PASTEURIZER ISABELLA CALVO M.D. Performed By: #### U [facility], [facility] #### [place] [address] [place] Basim 10-15-2024 L ----- Specimen: Received: 10/15/24 Status: LACY Yang Num: [id number] Spec Type: Surgical Subm Dr: Tere Solis DO Tissues: A Small Intestine - Biopsy/Polyp (SMALL BOWEL BX) B Gastric Biopsy (GASTRIC BX) Procedures: HE/4, Gross/Micro L4/2, H PYLORI Age/ Patient Sex Location Account Attending Physician Karis Kovacs 24/F [id number] Tere Solis DO SPEC NUM: [id number] RECD: 10/15/24 STATUS: LACY YANG NUM: [id number] GRICELDA: 10/15/[address]: Tere Solis DO ENTERED: 10/15/[address] [facility] [address]: SPEC TYPE: Surgical DEPT: S ENTERED BY: [id number] RECV BY: [id number] ORDERED: HE/4, Gross/Micro L4/2, H PYLORI ORDERED: [...] submitted in a single cassette. (1, ns, [id number] A) JG Part B is received in formalin labeled with the patients name, date of , and gastric BX is a tian-dominguez, focally erythematous, friable, 0.4 cm in greatest dimension tissue bit. The specimen is entirely submitted in a single cassette. (1, ns, [id number] B) JG Specimen: [id number] Received: 10/15/24 Status: LACY Willy Num: [id number] Spec Type: Surgical Subm Dr: Tere Solis, Tissues: A Small Intestine - Biopsy/Polyp (SMALL BOWEL BX) B Gastric Biopsy (GASTRIC BX) Procedures: HE/4, Gross/Micro L4/2, H PYLORI Patient: Karis Kovacs [id number] (Continued) Specimen: [id number] Received: 10/15/24 (Continued) Signed (signature on file) Kavin Sanford Jr., MD 10/16/24 1618 Specimen: [id number] Received: 10/15/24 Status: LACY Yang Num: [id number] Spec Type: Surgical Subm Dr: Tere Solis DO Tissues: A Small Intestine - Biopsy/Polyp (SMALL BOWEL BX) B Gastric Biopsy (GASTRIC BX) Procedures: DERICK, Gross/Micro L4/2, H PYLORI Patient: Karis Kovacs [id number] (Continued) Specimen: [id number] Received: 10/15/24 (Continued) Microscopic Description B. Immunoperoxidase stain performed on formalin fixed and paraffin-embedded tissue sections (block B1) for Helicobacter pylori organisms is negative.? The control stains appropriately. CPT Codes 20795 x 2, 59894 Specimen: Received: 10/15/24 Status: LACY Yang Num: [id number] Spec Type: Surgical Subm Dr: Tere Solis DO Tissues: A Small Intestine - Biopsy/Polyp (SMALL BOWEL BX) B Gastric Biopsy (GASTRIC BX) Procedures: HE/4, Gross/Micro L4/2, H PYLORI Patient: Karis Kovacs [id number] (Continued) Signed (signature on file) Kavin Sanford Jr., MD 10/16/24 1618 Normal [facility] Opiates [Presence] in Urine by Screen methodOrdered By: Tere Solis on 10-15-2024 Opiates Screen Ql (U) Opiates [Presence] in Urine by Screen method Negative [facility] Phencyclidine Screen Ql (U)O rdered By: Tere Solis on 10-15-2024 Phencyclidine Ql (U) Phencyclidine [Pres ence] in Urine by Screen method Negative [facility] Measure post void residualon 09-03-2024 Volume 14ml [facility] POCT Urinalysis Auto, W/O Mi croscopyon 09-03-2024 External Poct Urine Blood Negative [facility] External Poct Urine Glucose Negative [facility] External Poct Urine Ketones [facility] External Poct Urine Leukocyte Esterase Negative [facility] External Poct Urine Nitrite Negative [facility] External Poct Urine Ph 8 Pr [facility] External Poct Urine Protein Negative [facility] [facility] Outside Recordson 08-20-2024 Outside Records [id number] IFF [facility] Progress Note - Nurseon 07-28 Progress Note - Nurse Gave 25mg of Prome thazine into patients Right Gluteus Karan intramuscularly. Patient tolerated well. No adverse reactions. Dr. French education patient on medication before given. [Electronically Signed on: 08/09/2024 15:23 EST] Ekta Olsen MA [Verified on: 08/09/2024 15:23 EST] Ekta Olsen MA Normal [facility] URINE CULTUREon 08-08-2024 Bacteria identified Cx Nom (U) CULTURE RESULTS <10,000 ORGANISMS/ML NORMAL URO GENITAL ZANDER Normal [facility] Comment on above: Performed By: #### 6 30-4 #### [facility] ([id number]) [address] [place] [address], [address] [place] [address] [facility] 08-01-2024 [facility] Telephone ([facility]) ----- KARIS KOVACS ([id number]) 2 F Date Time Provider Department 08/01/24 GALE BASSETT [facility] During your visit today, we recorded the following information about you: Karo Slater 08/01/2024 9:52 AM Signed Found on the Endo [facility] for Earline Bassett: Pt, IS REQUESTING PROVIDER TO [facility] FOR SPEECH THERAPY. No other information was given. Please advise. Gale Bassett APRN.[facility] 08/01/2024 11:36 AM Signed PCP is [...] Status:Closed by KARO SLATER on 08/01/[address] [facility] URINE CULTUREon 07-20-2024 Bacteria identified Cx Nom (U) CULTURE RESULTS <10,000 ORGANISMS/ML NORMAL URO GENITAL ZANDER Normal [facility] Comment on above: Performed By: #### 6 30-4 #### [facility] ([id number]) [address], [address] [place] [address] US RETROPERITONEAL COMPLETEo n 07-04-2024 US RETROPERITONEAL [...] AM Normal [facility] POCT Urinalysis Auto, W/O Mi croscopyon 06-29-2024 External Poct Urine Blood Trace [facility] External Poct Urine Glucose Negative [facility] External Poct Urine Ketones Negative [facility] External Poct Urine Leukocyte Esterase Negative [facility] External Poct Urine Nitrite Negative [facility] External Poct Urine Ph 8.5 Pr [facility] External Poct Urine Protein Negative [facility] Outside Recordson 06-28-2024 Outside Records [id number]#[id number] [facility] Rad - Other Radiology Report on 06-28-2024 Rad - Other Radiology Report [id number]#[id number] [facility] CNPN Tele[facility] ([facility]) ----- KOVACSKARIS ([id number]) 2 F Date Time Provider Department 06/18/24 GALE BASSETT [facility] During your visit today, we recorded the [...] Status:Closed by KARO SLATER on 06/18/[address] [facility] Office Visiton 06-05-2024 Follow-up visit [id number] Juan Jose Kovacs 2000 F Date Provider Department Center 06/05/2024 Tia-JOJO ESPARZA EMANI Bolaños No family history on file Level of Service:95398 [place] OFFICE/OUTPATIENT ESTABLISHED LOW MDM 20 MIN Normal [facility] CNPNon 05-18-2024 CNPN Telephone ([facility]) ----- KARIS KOVACS ([id number]) 2 F Date Time Provider Department 05/18/24 GALE BASSETT [facility] During your visit today, we recorded the following information about you: Jaqueline Coronado RN 05/18/2024 2:18 PM Signed Pt calls Seen 04-16-2024 Ov notes reviewed Asking if provider would like pt to stay on dexcom 7 He has applied the last disk to his arm Pharm on dial Ddm/ [facility] [place] Jessi Sanford MA 05/18/2024 3:36 PM Signed Full Dexcom report printed and placed on providers desk for review. Gale Bassett, SHOP COOPER.[facility] 05/18/2024 4:24 PM Signed Please discontinue metformin and come in for 2 more sensors - to see how you do off of the medication Jessi Sanford MA 05/18/2024 4:35 PM Signed Called and informed pt of below message. Placed sensors at Desk C for scrap picker. Jessi Sanford MA Allergies As of [...] Status:Closed by JESSI SANFORD on 05/18/[address] [facility] 25([place])D3 [facility] 20[facility] 25-hydroxyvitamin D3 [Mass/Vol] 23.8 ng/mL Low 31.0-80.0 [facility] Comment on above: Order Comment: Speci men Type: BLOOD SPECIMENOrdering Facility: [facility] Address: [address] [place], [place] [address] [address] Result Comment: Clas sification of 25 [place] Vitamin D status: Deficiency/Insufficiency: < or = 30 ng/ml. Sufficiency/Optimal Levels: 31-80 ng/mL Toxicity: > 100 ng/mL. Test performed by chemiluminescent immunoassay. Performed By: #### 1 989-3 ####[facility] [id number] [place] [address] [place] ALBUMIN/CREATININE RATIO, UR INEon 05-11-2024 Albumin DL <= 20 mg/L (U) [Mass/Vol] mg/dL Normal [facility] Comment on above: Order Comment: Speci men Type: URINE SPECIMENOrdering Facility: [facility] Address: [address] [place] [address] Performed By: #### U ACR ####[facility] [id number] [place] [address] [place] Albumin/Creatinine (U) [Mass ratio] <13 Normal <30 [facility] Comment on above: Order Comment: Speci men Type: URINE SPECIMENOrdering Facility: [facility] Address: [address] [place] [address] Result Comment: Adul t Male and Female Nephrotic Criteria: <30 mg/g is considered normal to mildly increased 30-300 mg/g is considered moderately increased >300 mg/g is considered severely increased KDIGO. (2013). KDIGO 2012 Clinical Practice Guideline for the Evaluation and Management of Chronic Kidney Disease. Official Journal of the International Society of Nephrology, 3(1), 1-150. Performed By: #### U ACR ####[facility] [id number] [place] [address] [place] Creatinine (U) [Mass/Vol] 94.6 mg/dL Normal 20.0-300.0 [facility] Comment on above: Order Comment: Speci men Type: URINE SPECIMENOrdering Facility: [facility] Address: [address] [place] [address] Performed By: #### U ACR ####[facility] [id number] [place] [address] [place] C peptide SerPl-mCncon 05-11 C peptide [Mass/Vol] 1.7 ng/mL Normal 1.1-4.4 [facility] Comment on above: Order Comment: Speci men Type: BLOOD SPECIMENOrdering Facility: [facility] Address: [address] [place] [address] Performed By: #### 1 986-9 ####[facility] [id number] [place] [address] [place] GAD65 Ab Ser-aCncon 05-11-20 Glutamate decarboxylase 65 Ab Qn (S) <5.0 Normal <=5.0 [facility] Comment on above: Order Comment: Graciai cindy Type: BLOOD SPECIMENOrdering Facility: [facility] Address: [address] [place] [address] Result Comment: Anti -glutamic acid decarboxylase antibody [...] is required. Performed By: #### 1 3926-1 ####[facility] [id number] [place] [address] [place] Glucose p fast [facility] 05-11-2024 Glucose post fast [Mass/Vol] 78 mg/dL Normal 74-99 [facility] Comment on above: Order Comment: Janet cindy Type: BLOOD SPECIMENOrdering Facility: [facility] Address: [address] [place] [address] Result Comment: Amer [place] Diabetes Association guidelines state that a diabetes mellitus diagnosis is preliminarily made when the fasting plasma glucose meets or exceeds 126 mg/dL. In the absence of unequivocal hyperglycemia, results should be confirmed with repeat testing. Patients are at increased risk for diabetes mellitus (prediabetes) when the fasting glucose is 100 to 125 mg/dL. Performed By: #### 1 558-6 ####[facility] [id number] [place] [address] [place] Glutamate decarboxylase 65 A b Qn (S)on 05-11-2024 GLUTAMIC ACID DECARBOXYLAS AB QUALITATIVE Negative Normal Negative [facility] Comment on above: Order Comment: Speci men Type: BLOOD SPECIMENOrdering Facility: [facility] Address: [address] [place] [address] Performed By: #### 1 3926-1 ####[facility] [id number] [place] [address] [place] Insulin SerPl-aCncon 024 Insulin Qn 3.3 u[IU]/mL Normal 3.0-25.0 [facility] Comment on above: Order Comment: Speci men Type: BLOOD SPECIMENOrdering Facility: [facility] Address: [address] [place] [address] Performed By: #### 2 0448-7 ####[facility] [id number] [place] [address] [place] PTH-Intact [facility]-ncon 04-27 Parathyrin.intact [Mass/Vol] 21 pg/mL Normal 15-65 [facility] Comment on above: Order Comment: Speci men Type: BLOOD SPECIMENOrdering Facility: [facility] Address: [address] [place] [address] Performed By: #### 2 132-9, 2731-8, 3016-3 ####[facility] [id number] [place] [address] [place] Renal function 2000 panelon 05-11-2024 Albumin [Mass/Vol] 4.6 g/dL Normal 3.9-4.[address] [facility] Comment on above: Order Comment: Speci men Type: BLOOD SPECIMENOrdering Facility: [facility] Address: [address] [place] [address] Performed By: #### 2 4362-6 ####[facility]CLIA [id number] [place] [address] Anion gap [Moles/Vol] 10 mmol/L Normal 8-[address] [facility] Comment on above: Order Comment: Speci men Type: BLOOD SPECIMENOrdering Facility: [facility] Address: [address] [place], [place] [address] Performed By: #### 2 4362-6 ####[facility] LABCLIA [id number] [place] [address] Calcium [Mass/Vol] 9.6 mg/dL Normal 8.5-10.[address] [facility] Comment on above: Order Comment: Speci men Type: BLOOD SPECIMENOrdering Facility: [facility] Address: [address] [place], [place] [address] Performed By: #### 2 4362-6 ####[facility]CLIA [id number] [place] [address] Chloride [Moles/Vol] 101 mmol/L Normal 98-107 [facility] Comment on above: Order Comment: Speci men Type: BLOOD SPECIMENOrdering Facility: [facility] Address: [address] [place] [address] Performed By: #### 2 4362-6 ####[facility] [id number] [place] [address] CO2 [Moles/Vol] 21 mmol/L Low 22-30 [facility] Comment on above: Order Comment: Speci men Type: BLOOD SPECIMENOrdering Facility: [facility] Address: [address] [place], [place] [address] Performed By: #### 2 4362-6 ####[facility]CLIA [id number] [place] [address] Creatinine [Mass/Vol] 0.75 mg/dL Normal 0.73-1.[address] [facility] Comment on above: Order Comment: Speci men Type: BLOOD SPECIMENOrdering Facility: [facility] Address: [address] [place], [place] [address] Performed By: #### 2 4362-6 ####[facility]CLIA [id number] [place] [address] Creatinine and Glomerular filtration rate.predicted panel (S/P/Bld) 116 mL/min/1.73m??? Normal >=60 [facility] Comment on above: Order Comment: Janet white Type: BLOOD SPECIMENOrdering Facility: [facility] Address: [address] [place] [address] Result Comment: Carla mated Glomerular Filtration Rate [...] actual GFR. Performed By: #### 2 4362-6 ####[facility] [id number] [place] [address] Glucose [Mass/Vol] 86 mg/dL Normal 74-[address] [facility] Comment on above: Order Comment: Janet white Type: BLOOD SPECIMENOrdering Facility: [facility] Address: [address] [place] [address] Result Comment: The [place] Diabetes Association (ADA) provides guidance for cutoff [...] Standards of Medical Care in Diabetes 2016, [place] Diabetes Association. Diabetes Care. 2016.39(Suppl 1). Performed By: #### 2 4362-6 ####[facility] [id number] [place] [address] Phosphate [Mass/Vol] 4.2 mg/dL Normal [facility] Comment on above: Order Comment: Speci men Type: BLOOD SPECIMENOrdering Facility: [facility] Address: [address] [place] [address] Performed By: #### 2 4362-6 ####[facility] [id number] [place] [address] Potassium [Moles/Vol] 4.4 mmol/L Normal 3.7-5.[address] [facility] Comment on above: Order Comment: Speci men Type: BLOOD SPECIMENOrdering Facility: [facility] Address: [address] [place] [address] Performed By: #### 2 4362-6 ####[facility] [id number] [place] [address] Sodium [Moles/Vol] 132 mmol/L Low 136-[address] [facility] Comment on above: Order Comment: Speci men Type: BLOOD SPECIMENOrdering Facility: [facility] Address: [address] [place] [address] Performed By: #### 2 4362-6 ####[facility] [id number] [place] [address] Urea nitrogen [Mass/Vol] 12 mg/dL Normal 7-21 [facility] Comment on above: Order Comment: Speci men Type: BLOOD SPECIMENOrdering Facility: [facility] Address: [address] [place] [address] Performed By: #### 2 4362-6 ####[facility]CLIA [id number] [place] [address] TSH SerPl-aCncon 05-11-2024 TSH Qn 0.652 m[IU]/L Normal 0.270-4.[address] [facility] Comment on above: Order Comment: Speci men Type: BLOOD SPECIMENOrdering Facility: [facility] Address: [address] [place] [address] Performed By: #### 2 132-9, 2731-8, 3016-3 ####[facility] [id number] [place] [address] [place] Vit B12 [facility] 11-15-2 024 Cobalamin (Vitamin B12) [Mass/Vol] 314 pg/mL Normal 232-1245 [facility] Comment on above: Order Comment: Speci men Type: BLOOD SPECIMENOrdering Facility: [facility] Address: [address] [place] [address] Performed By: #### 2 132-9, 2731-8, 3016-3 ####[facility] [id number] [address] [place] CNOVon 04-16-2024 CNOV Office Visit (ENDOCC ) ----- KARIS KOVACS ([id number]) 2 F Date Time Provider Department 04/16/24 3:00 PM GALE BASSETT [facility] During your visit today, we recorded the following information about you: Pulse Blood pressure Weight Height 83/minute 120/78 43.2 kg 1.575 m Gale Bassett, SHOP COOPER.MANUFACTURING INSPECTOR 04/16/2024 4:59 PM Signed Endocrinology Initial Diabetes Assessment Karis Kovacs is here for a consultation regarding: Diabetes My final recommendations will be communicated back to the requesting physician by way of shared Medical record or letter to requesting physician via US mail. PCP is Kavin French Sr, DO Kavin French Sr [address] [place], [place] [id number] Subjective History of Present Illness Karis Kovacs [...] SQ [facility]wks [facility] [place] and Syringes lamoTRIgine (LAMICTAL) 25 mg tablet Take 100 mg by mouth twice daily. Anticonvulsant - Phenyltriazine Derivatives LORazepam (ATIVAN) 1 mg tablet Take 1 mg by mouth q 12 HR. Antianxiety Agent - Benzodiazepines Needle, Disp, 18 G (BD DISPOSABLE NEEDLES) 18 gauge x 1 ndle For use to withdraw testosterone [facility] [place] and Syringes Needle, Disp, 23 G 23 gauge x 3/4 ndle For use with testosterone administration SQ [facility] [place] and Syringes phenytoin ER (DILANTIN) 100 mg [...] History Toba (more content not included)... Normal [facility] HEMOGLOBIN A1C (POC)on 04-16 HbA1c (Bld) [Mass fraction] 5.3 % 4.3 - 5.6 % [facility] Comment on above: Location:[facility], [address] [place] [address] [place], [place], [address] Point of care (POC) Hemoglobin A1c (HGBA1C) [...] specific diabetes management situations: The POC device worm picker provides a normal range of 4.2% to 6.5% for the HGBA1C POC test. However, the [place] Diabetes Association guidelines indicate that patients with [...] anemia) that alter red blood cell lifespan. [facility] 36on 02-17-2024 36 Patient called and w ants to know if he's able to drive. He said he was cleared to drive per neurology- but I think neurology is saying his issues are cardiac related. What do you want me to tell him? Normal [facility] Telephoneon 02-17-2024 Telephone [id number] BethanieJuan Jose marcia Goodrich 2000 F Date Provider Department Center 02/17/2024 Penelope8-ROSALINE PRINCE EMANI [facility] No family history on file [facility] Basic Metabolic Panelon - Anion gap [Moles/Vol] 11 mmol/L 9 - 17 mmol/L [employer] Calcium [Mass/Vol] 9.4 mg/dL 8.6 - 10. 4 mg/dL [facility] Chloride [Moles/Vol] 100 mmol/L 98 - 10 7 mmol/L [facility] [employer] CO2 [Moles/Vol] 28 mmol/L 20 - 31 mmol/L [employer] Creatinine [Mass/Vol] 0.7 mg/dL 0.5 - 0.9 mg/dL [employer] Est, Glom Filt Rate - [facility] Your Office Agent Comment on above: These results are not [...] [Mass/Vol] 88 mg/dL 70 - 99 mg/dL [employer] Potassium [Moles/Vol] 3.8 mmol/L 3.7 - 5.3 mmol/L [facility] Sodium [Moles/Vol] 139 mmol/L 135 - 144 mmol/L [facility] Urea nitrogen [Mass/Vol] 10 mg/dL 6 - 20 mg/dL [facility] Urea nitrogen/Creatinine [Mass ratio] 14 mg/mg 9 - 20 [facility] Basic Metabolic Profon 12-08 Anion gap [Moles/Vol] 11 mmol/L Normal -17 [facility] Comment on above: Performed By: #### C BC, BMP #### [facility] [place] [facility] [address] [place] [address] Veterans Service Officer: Chidi Richter MD BUN/CRE Ratio 14 Normal - [facility] Comment on above: Performed By: #### C NARCISO, BMP #### [facility] [place] [facility] [address] [facility] [place] [address] Veterans Service Officer: Chidi Richter MD Calcium [Mass/Vol] 9.4 mg/dL Normal 8.6-10.4 [facility] Comment on above: Performed By: #### C NARCISO, BMP #### [facility] [place] [facility] [address] [facility] [place] [address] Veterans Service Officer: Chidi Richter MD Chloride [Moles/Vol] 100 mmol/L Normal 98-107 [facility] Comment on above: Performed By: #### C BC, BMP #### [facility] [place] [facility] [address] [facility] [place] [address] Veterans Service Officer: Chidi Richter MD CO2 [Moles/Vol] 28 mmol/L Normal 20-31 [facility] Comment on above: Performed By: #### C NARCISO, BMP #### [facility] [place] [facility] [place] [address] Veterans Service Officer: Chidi Richter MD Creatinine [Mass/Vol] 0.7 mg/dL Normal 0.5-0.9 [facility] Comment on above: Performed By: #### C NARCISO, BMP #### [facility] [place] [facility] [address] [facility] [place] [address] Veterans Service Officer: Chidi Richter MD GFR/1.73 sq M.predicted among non-blacks MDRD (S/P/Bld) [Vol rate/Area] mL/min/{1.73_m2} Normal >60 [facility] Comment on above: Result Comment: These [...] Performed By: #### C NARCISO, BMP #### [facility] [place] [facility] [address] [facility] [place] [address] Veterans Service Officer: Chidi Richter MD Glucose [Mass/Vol] 88 mg/dL Normal 70-99 [facility] Comment on above: Performed By: #### C NARCISO, BMP #### [facility] [place] [facility] [facility] [place] [address] Veterans Service Officer: Chidi Richter MD Potassium [Moles/Vol] 3.8 mmol/L Normal 3.7-5.3 [facility] Comment on above: Performed By: #### C NARCISO, BMP #### [facility] [place] [facility] [facility] [place] [address] Veterans Service Officer: Chidi Richter MD Sodium [Moles/Vol] 139 mmol/L Normal 135-144 [facility] Comment on above: Performed By: #### C NARCISO, BMP #### [facility] [place] [facility] [address] [facility] [place], [place] [id number] Veterans Service Officer: Chidi Richter MD Urea nitrogen [Mass/Vol] 10 mg/dL Normal 6-20 [facility] Comment on above: Performed By: #### C NARCISO, BMP #### [facility] [place] [facility] [address] [facility] [place], [place] [id number] Veterans Service Officer: Chidi Richter MD CBCon 12-09-2023 Erythrocyte distribution width (RBC) [Ratio] 13.3 % 11.8 - 14.4 % [facility] Hematocrit (Bld) [Volume fraction] 40.9 % 36.3 - 47.1 % [facility] Hemoglobin (Bld) [Mass/Vol] 13.7 g/dL 11.9 - 15.1 g/dL [facility] MCH (RBC) [Entitic mass] 28.5 pg 25.2 - 33.5 pg [facility] MCHC (RBC) [Mass/Vol] 33.5 g/dL 28.4 - 34.8 g/dL [facility] MCV (RBC) [Entitic vol] 85.0 fL 82.6 - 102.9 fL [facility] Nucleated RBC/100 WBC (Bld) [Ratio] 0.0 % 0.0 per 100 WBC [facility] Platelet mean volume (Bld) [Entitic vol] 9.9 fL 8.1 - 13.5 fL [facility] Platelets (Bld) [#/Vol] 253 10*3/uL [facility] RBC (Bld) [#/Vol] 4.81 10*6/uL 3.95 - 5.11 m/uL [facility] WBC other (Bld) [#/Vol] 6.6 [facility] Erythrocyte distribution width (RBC) [Ratio] 13.3 % Normal 11.8-14.4 [facility] Comment on above: Performed By: #### C NARCISO, BMP #### [facility] [place] [facility] [address] [facility] [place], [place] [address] (815) Veterans Service Officer: Chidi Richter MD Hematocrit (Bld) [Volume fraction] 40.9 % Normal 36.3-47.1 [facility] Comment on above: Performed By: #### C BC, BMP #### [facility] [place] [facility] [address] [place] [address]. [place] [address] Veterans Service Officer: Chidi Richter MD Hemoglobin (Bld) [Mass/Vol] 13.7 g/dL Normal 11.9-15.1 [facility] Comment on above: Performed By: #### C BC, BMP #### [facility] [place] [facility] [address] [place] [address]. [place] [address] Veterans Service Officer: Chidi Richter MD MCH (RBC) [Entitic mass] 28.5 pg Normal 25.2-33.5 [facility] Comment on above: Performed By: #### C NARCISO, BMP #### [facility] [place] [facility] [address] [place] [address]. [place] [address] Veterans Service Officer: Chidi Richter MD MCHC (RBC) [Mass/Vol] 33.5 g/dL Normal 28.4-34.8 [facility] Comment on above: Performed By: #### C NARCISO, BMP #### [facility] [place] [facility] [address] [place] [address]. [place] [address] Veterans Service Officer: Chidi Richter MD MCV (RBC) [Entitic vol] 85.0 fL Normal 82.6-102.9 [facility] Comment on above: Performed By: #### C BC, BMP #### [facility] [address] [place] [address]. [place] [address] Veterans Service Officer: Chidi Richter MD NRBC Automated 0.0 per 100 WBC Normal 0.0 [facility] Comment on above: Performed By: #### C BC, BMP #### [facility] [address] [place] [address] Veterans Service Officer: Chidi Richter MD Platelet mean volume (Bld) [Entitic vol] 9.9 fL Normal 8.1-13.5 [facility] Comment on above: Performed By: #### C BC, BMP #### [facility] [address] [place] [address] Veterans Service Officer: Chidi Richter MD Platelets (Bld) [#/Vol] 253 10*3/uL Normal 138-453 [facility] Comment on above: Performed By: #### C NARCISO, BMP #### [facility] [facility] [place] [address] Veterans Service Officer: Chidi Richter MD RBC (Bld) [#/Vol] 4.81 10*6/uL Normal 3.95-5.11 [facility] Comment on above: Performed By: #### C BC, BMP #### [facility] [facility] [place] [address] Veterans Service Officer: Chidi Richter MD WBC (Bld) [#/Vol] 6.6 10*3/uL Normal 3.5-11.3 [facility] Comment on above: Performed By: #### C NARCISO, BMP #### [facility] [facility] [place] [place] [address] Veterans Service Officer: Chidi Richter MD Basic Metabolic Profon 12-05 Anion gap [Moles/Vol] 17 mmol/L Normal 9-17 [facility] Comment on above: Performed By: #### B MP, CBC #### [facility] [place] [address] Veterans Service Officer: Chidi Richter MD BUN/CRE Ratio 20 Normal 9-20 [facility] Comment on above: Performed By: #### B MP, CBC #### [facility] [address] [place] [address] Veterans Service Officer: Chidi Richter MD Calcium [Mass/Vol] 9.8 mg/dL Normal 8.6-10.4 [facility] Comment on above: Performed By: #### B MP, CBC #### [facility] [address] [place] [address] Veterans Service Officer: Chidi Richter MD Chloride [Moles/Vol] 97 mmol/L Low 98-107 [facility] Comment on above: Performed By: #### B MP, CBC #### [facility] [address] [place] [address] Veterans Service Officer: Chidi Richter MD CO2 [Moles/Vol] 25 mmol/L Normal 20-31 [facility] Comment on above: Performed By: #### B MP, CBC #### [facility] [address] [place] [address] Veterans Service Officer: Chidi Richter MD Creatinine [Mass/Vol] 0.7 mg/dL Normal 0.5-0.9 [facility] Comment on above: Performed By: #### B MP, CBC #### [facility] [address] [facility] [place] [place] [address] Veterans Service Officer: Chidi Richter MD GFR/1.73 sq M.predicted among non-blacks MDRD (S/P/Bld) [Vol rate/Area] mL/min/{1.73_m2} Normal >60 [facility] Comment on above: Result Comment: These [...] Performed By: #### B MP, CBC #### [facility] [facility] [place] [address] Veterans Service Officer: Chidi Richter MD Glucose [Mass/Vol] 56 mg/dL Low 70-99 [facility] Comment on above: Performed By: #### B MP, CBC #### [facility] [address] [place] [address] Veterans Service Officer: Chidi Richter MD Potassium [Moles/Vol] 3.8 mmol/L Normal 3.7-5.3 [facility] Comment on above: Performed By: #### B MP, CBC #### [facility] [address] [place] [address] Veterans Service Officer: Chidi Richter MD Sodium [Moles/Vol] 139 mmol/L Normal 135-144 [facility] Comment on above: Performed By: #### B MP, CBC #### [facility] [address] [place] [address] Veterans Service Officer: Chidi Richter MD Urea nitrogen [Mass/Vol] 14 mg/dL Normal 6-20 [facility] Comment on above: Performed By: #### B MP, CBC #### [facility] [address] [place] [address] Veterans Service Officer: Chidi Richter MD CBCon 12-06-2023 Erythrocyte distribution width (RBC) [Ratio] 13.2 % Normal 11.8-14.4 [facility] Comment on above: Performed By: #### B MP, CBC #### [facility] [address] [place] [address] Veterans Service Officer: Chidi Richter MD Hematocrit (Bld) [Volume fraction] 40.6 % Normal 36.3-47.1 [facility] Comment on above: Performed By: #### B MP, CBC #### [facility] [address] [place] [address]. [place] [address] Veterans Service Officer: Chidi Richter MD Hemoglobin (Bld) [Mass/Vol] 13.6 g/dL Normal 11.9-15.1 [facility] Comment on above: Performed By: #### B MP, CBC #### [facility] [address] [place] [address]. [place] [address] Veterans Service Officer: Chidi Richter MD MCH (RBC) [Entitic mass] 29.2 pg Normal 25.2-33.5 [facility] Comment on above: Performed By: #### B MP, CBC #### [facility] [address] [place] [address]. [place] [address] Veterans Service Officer: Chidi Richter MD MCHC (RBC) [Mass/Vol] 33.5 g/dL Normal 28.4-34.8 [facility] Comment on above: Performed By: #### B MP, CBC #### [facility] [address] [place] [address]. [place] [address] Veterans Service Officer: Chidi Richter MD MCV (RBC) [Entitic vol] 87.3 fL Normal 82.6-102.9 [facility] Comment on above: Performed By: #### B MP, CBC #### [facility] [address] [place] [address]. [place] [address] Veterans Service Officer: Chidi Richter MD NRBC Automated 0.0 per 100 WBC Normal 0.0 [facility] Comment on above: Performed By: #### B MP, CBC #### [facility] [address] [place] [address]. [place] [address] Veterans Service Officer: Chidi Richter MD Platelet mean volume (Bld) [Entitic vol] 10.3 fL Normal 8.1-13.5 [facility] Comment on above: Performed By: #### B MP, CBC #### [facility] [facility] [place] [address] Veterans Service Officer: Chidi Richter MD Platelets (Bld) [#/Vol] 233 10*3/uL Normal 138-453 [facility] Comment on above: Performed By: #### B MP, CBC #### [facility] [address] [place] [address] Veterans Service Officer: Chidi Richter MD RBC (Bld) [#/Vol] 4.65 10*6/uL Normal 3.95-5.11 [facility] Comment on above: Performed By: #### B MP, CBC #### [facility] [address] [place] [address] Veterans Service Officer: Chidi Richter MD WBC (Bld) [#/Vol] 7.0 10*3/uL Normal 3.5-11.3 [facility] Comment on above: Performed By: #### B MP, CBC #### [facility] [address] [place] [address] Veterans Service Officer: Chidi Richter MD Basic Metabolic Profon 12-01 Anion gap [Moles/Vol] 10 mmol/L Normal 9-17 [facility] Comment on above: Performed By: #### C BC, BMP #### [facility] [address] [place] [address] Veterans Service Officer: Chidi Richter MD BUN/CRE Ratio 11 Normal 9-20 [facility] Comment on above: Performed By: #### C BC, BMP #### [facility] [address] [place], [place] [address] [place] [address] Veterans Service Officer: Chidi Richter MD Calcium [Mass/Vol] 9.2 mg/dL Normal 8.6-10.4 [facility] Comment on above: Performed By: #### C NARCISO, BMP #### [facility] [address] [facility] [place] [place] [address] Veterans Service Officer: Chidi Richter MD Chloride [Moles/Vol] 105 mmol/L Normal 98-107 [facility] Comment on above: Performed By: #### C NARCISO, BMP #### [facility] [address] [facility] [place] [address] Veterans Service Officer: Chidi Richter MD CO2 [Moles/Vol] 26 mmol/L Normal 20-31 [facility] Comment on above: Performed By: #### C NARCISO, BMP #### [facility] [address] [facility] [place] [address] Veterans Service Officer: Chidi Richter MD Creatinine [Mass/Vol] 0.7 mg/dL Normal 0.5-0.9 [facility] Comment on above: Performed By: #### C NARCISO, BMP #### [facility] [facility] [place] [address] Veterans Service Officer: Chidi Richter MD GFR/1.73 sq M.predicted among non-blacks MDRD (S/P/Bld) [Vol rate/Area] mL/min/{1.73_m2} Normal >60 [facility] Comment on above: Result Comment: These [...] Performed By: #### C NARCISO, BMP #### [facility] [address] [place] [address] Veterans Service Officer: Chidi Richter MD Glucose [Mass/Vol] 93 mg/dL Normal 70-99 [facility] Comment on above: Performed By: #### C BC, BMP #### [facility] [address] [place] [address] Veterans Service Officer: Chidi Richter MD Potassium [Moles/Vol] 3.9 mmol/L Normal 3.7-5.3 [facility] Comment on above: Performed By: #### C NARCISO, BMP #### [facility] [address] [place] [address] Veterans Service Officer: Chidi Richter MD Sodium [Moles/Vol] 141 mmol/L Normal 135-144 [facility] Comment on above: Performed By: #### C NARCISO, BMP #### [facility] [address] [place] [address] Veterans Service Officer: Chidi Richter MD Urea nitrogen [Mass/Vol] 8 mg/dL Normal 6-20 [facility] Comment on above: Performed By: #### C NARCISO, BMP #### [facility] [address] [place] [address] Veterans Service Officer: Chidi Richter MD CBCon 12-02-2023 Erythrocyte distribution width (RBC) [Ratio] 13.0 % Normal 11.8-14.4 [facility] Comment on above: Performed By: #### C NARCISO, BMP #### [facility] [address] [place] [address] Veterans Service Officer: Chidi Richter MD Hematocrit (Bld) [Volume fraction] 39.2 % Normal 36.3-47.1 [facility] Comment on above: Performed By: #### C NARCISO, BMP #### [facility] [address] [facility] [place] [address] Veterans Service Officer: Chidi Richter MD Hemoglobin (Bld) [Mass/Vol] 12.7 g/dL Normal 11.9-15.1 [facility] Comment on above: Performed By: #### C NARCISO, BMP #### [facility] [facility] [place] [address] Veterans Service Officer: Chidi Richter MD MCH (RBC) [Entitic mass] 28.7 pg Normal 25.2-33.5 [facility] Comment on above: Performed By: #### C NARCISO, BMP #### [facility] [address] [place] [address]. [place] [address] Veterans Service Officer: Chidi Richter MD MCHC (RBC) [Mass/Vol] 32.4 g/dL Normal 28.4-34.8 [facility] Comment on above: Performed By: #### C NARCISO, BMP #### [facility] [address] [place] [address]. [place] [address] Veterans Service Officer: Chidi Richter MD MCV (RBC) [Entitic vol] 88.5 fL Normal 82.6-102.9 [facility] Comment on above: Performed By: #### C NARCISO, BMP #### [facility] [facility] [place] [address] Veterans Service Officer: Chidi Richter MD NRBC Automated 0.0 per 100 WBC Normal 0.0 [facility] Comment on above: Performed By: #### C NARCIOS, BMP #### [facility] [address] [place] [address]. [place] [address] Veterans Service Officer: Chidi Richter MD Platelet mean volume (Bld) [Entitic vol] 10.0 fL Normal 8.1-13.5 [facility] Comment on above: Performed By: #### C NARCISO, BMP #### [facility] [address] [place] [address] Veterans Service Officer: Chidi Richter MD Platelets (Bld) [#/Vol] 221 10*3/uL Normal 138-453 [facility] Comment on above: Performed By: #### C NARCISO, BMP #### [facility] [address] [place] [address] Veterans Service Officer: Chidi Richter MD RBC (Bld) [#/Vol] 4.43 10*6/uL Normal 3.95-5.11 [facility] Comment on above: Performed By: #### C NARCISO, BMP #### [facility] [facility] [place] [address] Veterans Service Officer: Chidi Richter MD WBC (Bld) [#/Vol] 7.4 10*3/uL Normal 3.5-11.3 [facility] Comment on above: Performed By: #### C NARCISO, BMP #### [facility] [facility] [place] [address] Veterans Service Officer: Chidi Richter [facility] Anion gap [Moles/Vol] 8 mmol/L Low 9 - 17 mmol/L [facility] Calcium [Mass/Vol] 8.8 mg/dL 8.6 - 10. 4 mg/dL [facility] Chloride [Moles/Vol] 106 mmol/L 98 - 10 7 mmol/L [facility] CO2 [Moles/Vol] 26 mmol/L 20 - 31 mmol/L [facility] Creatinine [Mass/Vol] 0.8 mg/dL 0.5 - 0.9 mg/dL [facility] Est, Glonoemy Wellst Rate - [facility] Comment on above: These results are [...] 92 mg/dL 70 - 99 mg/dL [facility] Interpretation and review of laboratory results Abnormal [facility] Potassium [Moles/Vol] 4.1 mmol/L 3.7 - 5.3 mmol/L [facility] Sodium [Moles/Vol] 140 mmol/L 135 - 144 mmol/L [facility] Urea nitrogen [Mass/Vol] 11 mg/dL 6 - 20 mg/dL [facility] Urea nitrogen/Creatinine [Mass ratio] 14 mg/mg 9 - 20 [facility] Basic Metabolic Profon 11-30 Anion gap [Moles/Vol] 8 mmol/L Low 9-17 [facility] Comment on above: Performed By: #### C NARCISO, CP #### [facility] [address] [facility] [place] [address] Veterans Service Officer: Chidi Richter MD BUN/CRE Ratio 14 Normal 9-20 [facility] Comment on above: Performed By: #### C NARCISO, CP #### [facility] [address] [facility] [place] [address] Veterans Service Officer: Chidi Richter MD Calcium [Mass/Vol] 8.8 mg/dL Normal 8.6-10.4 [facility] Comment on above: Performed By: #### C NARCISO, CP #### [facility] [facility] [place] [address] Veterans Service Officer: Chidi Richter MD Chloride [Moles/Vol] 106 mmol/L Normal 98-107 [facility] Comment on above: Performed By: #### C NARCISO, CP #### [facility] [address] [place] [address] Veterans Service Officer: Chidi Richter MD CO2 [Moles/Vol] 26 mmol/L Normal 20-31 [facility] Comment on above: Performed By: #### C NARCISO, CP #### [facility] [address] [place] [address] Veterans Service Officer: Chidi Richter MD Creatinine [Mass/Vol] 0.8 mg/dL Normal 0.5-0.9 [facility] Comment on above: Performed By: #### C NARCISO, CP #### [facility] [address] [facility] [place] [address] Veterans Service Officer: Chidi Richter MD GFR/1.73 sq M.predicted among non-blacks MDRD (S/P/Bld) [Vol rate/Area] mL/min/{1.73_m2} Normal >60 [facility] Comment on above: Result Comment: These [...] Performed By: #### C NARCISO, CP #### [facility] [address] [place] [address] Veterans Service Officer: Chidi Richter MD Glucose [Mass/Vol] 92 mg/dL Normal 70-99 [facility] Comment on above: Performed By: #### C NARCISO, CP #### [facility] [address] [place] [address] Veterans Service Officer: Chidi Richter MD Potassium [Moles/Vol] 4.1 mmol/L Normal 3.7-5.3 [facility] Comment on above: Performed By: #### C BC, CP #### [facility] [address] [place] [address] Veterans Service Officer: Chidi Richter MD Sodium [Moles/Vol] 140 mmol/L Normal 135-144 [facility] Comment on above: Performed By: #### C BC, CP #### [facility] [address] [place] [address] Veterans Service Officer: Chidi Richter MD Urea nitrogen [Mass/Vol] 11 mg/dL Normal 6-20 [facility] Comment on above: Performed By: #### C NARCISO, CP #### [facility] [address] [place] [address] Veterans Service Officer: Chidi Richter MD CBCon 12-01-2023 Erythrocyte distribution width (RBC) [Ratio] 13.1 % Normal 11.8-14.4 [facility] Comment on above: Performed By: #### C NARCISO, CP #### [facility] [address] [place] [address] Veterans Service Officer: Chidi Richter MD Hematocrit (Bld) [Volume fraction] 40.6 % Normal 36.3-47.1 [facility] Comment on above: Performed By: #### C BC, CP #### [facility] [address] [place] [address] Veterans Service Officer: Chidi Richter MD Hemoglobin (Bld) [Mass/Vol] 13.1 g/dL Normal 11.9-15.1 [facility] Comment on above: Performed By: #### C NARCISO, CP #### [facility] [address] [place] [address] Veterans Service Officer: Chidi Richter MD MCH (RBC) [Entitic mass] 28.7 pg Normal 25.2-33.5 [facility] Comment on above: Performed By: #### Kristen STUART, CP #### [facility] [facility] [place] [address] Veterans Service Officer: Chidi Richter MD MCHC (RBC) [Mass/Vol] 32.3 g/dL Normal 28.4-34.8 [facility] Comment on above: Performed By: #### C NARCISO, CP #### [facility] [address] [place] [address] Veterans Service Officer: Chidi Richter MD MCV (RBC) [Entitic vol] 88.8 fL Normal 82.6-102.9 [facility] Comment on above: Performed By: #### Kristen STUART, CP #### [facility] [address] [place] [address]. [place] [address] Veterans Service Officer: Chidi Richter MD NRBC Automated 0.0 per 100 WBC Normal 0.0 [facility] Comment on above: Performed By: #### Kristen STUART, CP #### [facility] [address] [place] [address]. [place] [address] Veterans Service Officer: Chidi Richter MD Platelet mean volume (Bld) [Entitic vol] 10.0 fL Normal 8.1-13.5 [facility] Comment on above: Performed By: #### Kristen STUART, CP #### [facility] [address] [place] [address] Veterans Service Officer: Chidi Richter MD Platelets (Bld) [#/Vol] 222 10*3/uL Normal 138-453 [facility] Comment on above: Performed By: #### Kristen STUART, CP #### [facility] [address] [place] [address]. [place], [place] [address] Veterans Service Officer: Chidi Richter MD RBC (Bld) [#/Vol] 4.57 10*6/uL Normal 3.95-5.11 [facility] Comment on above: Performed By: #### C NARCISO, CP #### [facility] [address] [place], [place] [address] Veterans Service Officer: Chidi Richter MD WBC (Bld) [#/Vol] 6.0 10*3/uL Normal 3.5-11.3 [facility] Comment on above: Performed By: #### C NARCISO, CP #### [facility] [address] [place], [place] [id number] Veterans Service Officer: Chidi Richter MD CBC with Auto Differentialon 12-01-2023 Basophils (Bld) [#/Vol] 0.03 10*3/uL [facility] Basophils/100 WBC (Bld) 1 % 0 - 2 % [facility] Eosinophils (Bld) [#/Vol] 0.08 10*3/uL [facility] Eosinophils/100 WBC (Bld) 1 % 1 - 4 % [facility] Erythrocyte distribution width (RBC) [Ratio] 13.0 % 11.8 - 14.4 % [facility] Hematocrit (Bld) [Volume fraction] 40.2 % 36.3 - 47.1 % [facility] Hemoglobin (Bld) [Mass/Vol] 13.0 g/dL 11.9 - 15.1 g/dL [facility] Immature granulocytes (Bld) [#/Vol] 0.01 10*3/uL [facility] Immature granulocytes/100 WBC (Bld) 0 % 0 [facility] Interpretation and review of laboratory results Abnormal [facility] Lymphocytes/100 WBC (Bld) 44 % High 24 - 43 % [facility] Lymphocytes/100 WBC (Bld) 2.68 % [facility] MCH (RBC) [Entitic mass] 28.8 pg 25.2 - 33.5 pg [facility] MCHC (RBC) [Mass/Vol] 32.3 g/dL 28.4 - 34.8 g/dL [facility] MCV (RBC) [Entitic vol] 89.1 fL 82.6 - 102.9 fL [facility] Monocytes/100 WBC (Bld) 8 % 3 - 12 % [facility] Monocytes/100 WBC (Bld) 0.47 % [facility] Neutrophils/100 WBC (Bld) 46 % 36 - 65 % [facility] Nucleated RBC/100 WBC (Bld) [Ratio] 0.0 % 0.0 per 100 WBC [facility] Platelet mean volume (Bld) [Entitic vol] 10.2 fL 8.1 - 13.5 fL [facility] Platelets (Bld) [#/Vol] 222 10*3/uL [facility] RBC (Bld) [#/Vol] 4.51 10*6/uL 3.95 - 5.11 m/uL [facility] Segmented neutrophils/100 WBC (Bld) 2.89 % [facility] WBC other (Bld) [#/Vol] 6.2 [facility] CBC with Diffon 12-01-2023 Abs. Basophil 0.03 k/uL Normal 0.00-0.20 [facility] Comment on above: Performed By: #### C NARCISO, CP #### [facility] [address] [place] [address] Veterans Service Officer: Chidi Richter MD Abs.Imm.Granulocyte 0.01 k/uL Normal 0.00-0.30 [facility] Comment on above: Performed By: #### C NARCISO, CP #### [facility] [address] [place] [address] Veterans Service Officer: Chidi Richter MD Abs.Neutrophil (Seg) 2.89 k/uL Normal 1.50-8.10 [facility] Comment on above: Performed By: #### C NARCISO, CP #### [facility] [address] [place] [address] Veterans Service Officer: Chidi Richter MD Basophils/100 WBC (Bld) 1 % Normal 0-2 [facility] Comment on above: Performed By: #### C BC, CP #### [facility] [place] [address] Veterans Service Officer: Chidi Richter MD Eosinophils (Bld) [#/Vol] 0.08 10*3/uL Normal 0.00-0.44 [facility] Comment on above: Performed By: #### C BC, CP #### [facility] [address] [place] [address]. [place] [address] Veterans Service Officer: Chidi Richter MD Eosinophils/100 WBC (Bld) 1 % Normal 1-4 [facility] Comment on above: Performed By: #### C NARCISO, CP #### [facility] [address] [place] [address]. [place] [address] Veterans Service Officer: Chidi Richter MD Erythrocyte distribution width (RBC) [Ratio] 13.0 % Normal 11.8-14.4 [facility] Comment on above: Performed By: #### C NARCISO, CP #### [facility] [address] [place] [address]. [place] [address] Veterans Service Officer: Chidi Richter MD Hematocrit (Bld) [Volume fraction] 40.2 % Normal 36.3-47.1 [facility] Comment on above: Performed By: #### C BC, CP #### [facility] [address] [place], [place] [address] [address] Veterans Service Officer: Chidi Richter MD Hemoglobin (Bld) [Mass/Vol] 13.0 g/dL Normal 11.9-15.1 [facility] Comment on above: Performed By: #### C NARCISO, CP #### [facility] [facility] [place] [place] [address] Veterans Service Officer: Chidi Richter MD Immature granulocytes/100 WBC (Bld) 0 % Normal 0 [facility] Comment on above: Performed By: #### C NARCISO, CP #### [facility] [address] [place] [address]. [place] [address] Veterans Service Officer: Chidi Richter MD Lymphocytes (Bld) [#/Vol] 2.68 10*3/uL Normal 1.10-3.70 [facility] Comment on above: Performed By: #### C NARCISO, CP #### [facility] [address] [place] [address]. [place] [address] Veterans Service Officer: Chidi Richter MD Lymphocytes/100 WBC (Bld) 44 % High 24-43 [facility] Comment on above: Performed By: #### Kristen STUART, CP #### [facility] [address] [place] [address] Veterans Service Officer: Chidi Richter MD MCH (RBC) [Entitic mass] 28.8 pg Normal 25.2-33.5 [facility] Comment on above: Performed By: #### Kristen STUART, CP #### [facility] [address] [place] [address]. [place] [address] Veterans Service Officer: Chidi Richter MD MCHC (RBC) [Mass/Vol] 32.3 g/dL Normal 28.4-34.8 [facility] Comment on above: Performed By: #### C NARCISO, CP #### [facility] [address] [place] [address] Veterans Service Officer: Chidi Richter MD MCV (RBC) [Entitic vol] 89.1 fL Normal 82.6-102.9 [facility] Comment on above: Performed By: #### C NARCISO, CP #### [facility] [address] [place] [address] Veterans Service Officer: Chidi Richter MD Monocytes (Bld) [#/Vol] 0.47 10*3/uL Normal 0.10-1.20 [facility] Comment on above: Performed By: #### C BC, CP #### [facility] [address] [place] [address] Veterans Service Officer: Chidi Richter MD Monocytes/100 WBC (Bld) 8 % Normal 3-12 [facility] Comment on above: Performed By: #### C NARCISO, CP #### [facility] [address] [place] [address] Veterans Service Officer: Chidi Richter MD Neutrophil (Seg) 46 % Normal 36-65 [facility] Comment on above: Performed By: #### C NARCISO, CP #### [facility] [address] [facility] [place] [address] Veterans Service Officer: Chidi Richter MD NRBC Automated 0.0 per 100 WBC Normal 0.0 [facility] Comment on above: Performed By: #### C NARCISO, CP #### [facility] [facility] [place] [address] Veterans Service Officer: Chidi Richter MD Platelet mean volume (Bld) [Entitic vol] 10.2 fL Normal 8.1-13.5 [facility] Comment on above: Performed By: #### C NARCISO, CP #### [facility] [place] [address] Veterans Service Officer: Chidi Richter MD Platelets (Bld) [#/Vol] 222 10*3/uL Normal 138-453 [facility] Comment on above: Performed By: #### C NARCISO, CP #### [facility] [address] [place] [address] Veterans Service Officer: Chidi Richter MD RBC (Bld) [#/Vol] 4.51 10*6/uL Normal 3.95-5.11 [facility] Comment on above: Performed By: #### C NARCISO, CP #### [facility] [address] [facility] [place] [address] Veterans Service Officer: Chidi Richter MD WBC (Bld) [#/Vol] 6.2 10*3/uL Normal 3.5-11.3 [facility] Comment on above: Performed By: #### C NARCISO, CP #### [facility] [facility] [place] [address] Veterans Service Officer: Chidi Richter MD CT CERVICAL SPINE WO [...] Alonso Jones MD 12/01/23 Final result Normal [facility] CT Cervical spine WO contras ton 12-01-2023 Radiology Study observation (narrative) [facility] CT HEAD WO CONTRASTon 2023 CT [...] Alonso Jones MD 12/01/23 Final result Normal [facility] CT Head WO contraston 2023 Radiology Study observation (narrative) [facility] Comp Metabolic Profon 2023 Albumin [Mass/Vol] 4.4 g/dL Normal 3.5-5.2 [facility] Comment on above: Performed By: #### C NARCISO, CP #### [facility] [address] [facility] [place] [address] Veterans Service Officer: Chidi Richter MD Alkaline Phos 53 U/L Normal 35-104 [facility] Comment on above: Performed By: #### C NARCISO, CP #### [facility] [address] [facility] [place] [address] Veterans Service Officer: Chidi Richter MD ALT [Catalytic activity/Vol] U/L Low 5-33 [facility] Comment on above: Performed By: #### C NARCISO, CP #### [facility] [address] [facility] [place] [address] Veterans Service Officer: Chidi Richtre MD Anion gap [Moles/Vol] 7 mmol/L Low 9-17 [facility] Comment on above: Performed By: #### C NARCISO, CP #### [facility] [address] [facility] [place] [address] Veterans Service Officer: Chidi Richter MD AST [Catalytic activity/Vol] 14 U/L Normal <32 [facility] Comment on above: Performed By: #### C NARCISO, CP #### [facility] [address] [place] [address] Veterans Service Officer: Chidi Richter MD Bilirubin [Mass/Vol] 0.2 mg/dL Low 0.3-1.2 [facility] Comment on above: Performed By: #### C NARCISO, CP #### [facility] [address] [place] [address] Veterans Service Officer: Chidi Richter MD BUN/CRE Ratio 16 Normal 9-20 [facility] Comment on above: Performed By: #### C NARCISO, CP #### [facility] [address] [place] [address] Veterans Service Officer: Chidi Richter MD Calcium [Mass/Vol] 9.4 mg/dL Normal 8.6-10.4 [facility] Comment on above: Performed By: #### C NARCISO, CP #### [facility] [address] [place] [address] Veterans Service Officer: Chidi Richter MD Chloride [Moles/Vol] 104 mmol/L Normal 98-107 [facility] Comment on above: Performed By: #### C NARCISO, CP #### [facility] [address] [place] [address] Veterans Service Officer: Chidi Richter MD CO2 [Moles/Vol] 31 mmol/L Normal 20-31 [facility] Comment on above: Performed By: #### C NARCISO, CP #### [facility] [address] [place] [address] Veterans Service Officer: Chidi Richter MD Creatinine [Mass/Vol] 0.9 mg/dL Normal 0.5-0.9 [facility] Comment on above: Performed By: #### C NARCISO, CP #### [facility] [address] [place] [address] Veterans Service Officer: Chidi Richter MD GFR/1.73 sq M.predicted among non-blacks MDRD (S/P/Bld) [Vol rate/Area] mL/min/{1.73_m2} Normal >60 [facility] Comment on above: Result Comment: These [...] renal tubular secretion. Performed By: #### C NARCIOS, CP #### [facility] [address] [place] [address] Veterans Service Officer: Chidi Richter MD Glucose [Mass/Vol] 95 mg/dL Normal 70-99 [facility] Comment on above: Performed By: #### C NARCISO, CP #### [facility] [address] [facility] [place] [address] Veterans Service Officer: Chidi Richter MD Potassium [Moles/Vol] 4.1 mmol/L Normal 3.7-5.3 [facility] Comment on above: Performed By: #### C NARCISO, CP #### [facility] [address] [place] [address] Veterans Service Officer: Chidi Richter MD Protein [Mass/Vol] 7.0 g/dL Normal 6.4-8.3 [facility] Comment on above: Performed By: #### C NARCISO, CP #### [facility] [address] [place], [place] [address] Veterans Service Officer: Chidi Richter MD Sodium [Moles/Vol] 142 mmol/L Normal 135-144 [facility] Comment on above: Performed By: #### C NARCISO, CP #### [facility] [address] [place] [address] Veterans Service Officer: Chidi Richter MD Urea nitrogen [Mass/Vol] 14 mg/dL Normal 6-20 [facility] Comment on above: Performed By: #### C NARCISO, CP #### [facility] [address] [place] [address] Veterans Service Officer: Chidi Richter MD No Panel Informationon 11-30 No acute abnormaliti es seen in the head and cervical spine. [facility] RIS CONSOLIDATED EXAMINATION: CT OF THE CERVICAL [...] There is no prevertebral soft tissue swelling. [facility] Alonso Beth MD - 12/01/2023 EXAMINATION: CT [...] in the head and cervical spine. [facility] No Panel InformationOrdered By: Alonso Jones on 12-01-2023 JUDY CAPUTO Your Office Agent Work Phone: Bacteria identified Cx Nom ( U)on 10-11-2023 Service comment (Unsp spec) [Interp] <10,000 ORGANISMS/ML NORMAL URO GENITAL ZANDER [facility] BASIC METABOLIC PANLon 10-09 Anion gap [Moles/Vol] 7 mmol/L Normal 5-15 [facility] Comment on above: Performed By: #### B MP #### [facility] ([id number]) [address] [place] [address] Calcium [Mass/Vol] 9.0 mg/dL Normal 8.5-10.5 [facility] Comment on above: Performed By: #### B MP #### [facility] ([id number]) [address] [place] [address] Chloride [Moles/Vol] 106 mmol/L Normal 98-109 [facility] Comment on above: Performed By: #### B MP #### [facility] ([id number]) [address] [place] [address] CO2 [Moles/Vol] 25 mmol/L Normal 22-32 [facility] Comment on above: Performed By: #### B MP #### [facility] ([id number]) [address] [place] [address] Creatinine [Mass/Vol] 0.81 mg/dL Normal 0.40-1.00 [facility] Comment on above: Result Comment: METH OD TRACEABLE TO IDMS STANDARD Performed By: #### B MP #### [facility] ([id number]) [address] [place] [address] eGFR (CKD-EPI) NON-RACE DEPENDENT >90 Normal >59 [facility] Comment on above: Result Comment: Reported eGFR is based on the CKD-EPI 2020 equation that does not use a race coefficient. Performed By: #### B MP #### [facility] ([id number]) [address] [place] [address] Glucose [Mass/Vol] 103 mg/dL High 65-99 [facility] Comment on above: Performed By: #### B MP #### [facility] ([id number]) [address] [place] [address] Potassium [Moles/Vol] 3.6 mmol/L Normal 3.5-5.0 [facility] Comment on above: Performed By: #### B MP #### [facility] ([id number]) [address] [place] [address] Sodium [Moles/Vol] 138 mmol/L Normal 134-146 [facility] Comment on above: Performed By: #### B MP #### [facility] ([id number]) [address] [place] [address] Urea nitrogen [Mass/Vol] 12 mg/dL Normal 5-23 [facility] Comment on above: Performed By: #### B MP #### [facility] ([id number]) [address] [place] [address] Basic Metabolic Panelon 09-25 Anion gap [Moles/Vol] 7 mmol/L 5 - 15 mmol/L [facility] Calcium [Mass/Vol] 9.0 mg/dL 8.5 - 10. 5 mg/dL [facility] Chloride [Moles/Vol] 106 mmol/L 98 - 10 9 mmol/L [facility] CO2 [Moles/Vol] 25 mmol/L 22 - 32 mmol/L [facility] Creatinine [Mass/Vol] 0.81 mg/dL 0.40 - 1.00 mg/dL [facility] Comment on above: METHOD TRACEABLE TO IDMS STANDARD eGFR (CKD-EPI)non-race dependent - PINF [facility] Comment on above: Reported eGFR is based on the CKD-EPI 2020 equation that does not use a race coefficient. Glucose [Mass/Vol] 103 mg/dL High 65 - 99 mg/dL [facility] Interpretation and review of laboratory results Abnormal [facility] Potassium [Moles/Vol] 3.6 mmol/L 3.5 - 5.0 mmol/L [facility] Sodium [Moles/Vol] 138 mmol/L 134 - 146 mmol/L [facility] Urea nitrogen [Mass/Vol] 12 mg/dL 5 - 23 mg/dL [facility] URINALYSISon 10-10-2023 Bilirubin Ql (U) Negative Normal NEG [facility] BLOOD/HGB MODERATE Abnormal NEG [facility] CA OXALATE CRYSTALS PRESENT Abnormal NONE [facility] Color (U) YELLOW Normal YELLOW [facility] Glucose Ql (U) Negative Normal NEG [facility] Ketones Ql (U) Negative Normal NEG [facility] Leukocyte esterase Test strip Ql (U) Negative Normal NEG [facility] MUCOUS PRESENT Abnormal NONE [facility] Nitrite Ql (U) Negative Normal NEG [facility] pH (U) 7.0 [pH] Normal 5.0-8.5 [facility] Protein Ql (U) Trace Abnormal NEG [facility] R.B.CELLS 3 /hpf Normal 0-5 [facility] Specific gravity (U) [Rel density] 1.024 Normal 1.003-1.03 5 [facility] SQUAMOUS EPITHELIUM 8 /hpf High 0-5 [facility] TURBIDITY CLEAR Normal CLEAR [facility] Urobilinogen (U) [Mass/Vol] mg/dL Normal <1.1 [facility] W.B.CELLS 3 /hpf Normal 0-5 [facility] URINE CULTUREon 10-10-2023 Bacteria identified Cx Nom (U) CULTURE RESULTS <10,000 ORGANISMS/ML NORMAL URO GENITAL ZANDER Normal [facility] Comment on above: Performed By: #### 6 30-4 #### [facility] ([id number]) [address], [address] [place] [address] Urinalysison 10-10-2023 Bilirubin Ql (U) Negative Negative^N egative [facility] Calcium oxalate crystals LM Ql (Urine sed) PRESENT Abnormal NONE^NONE [facility] Color (U) YELLOW YELLOW^YEL LOW [facility] Epithelial cells Auto (Urine sed) [#/Area] 8 High [facility] Glucose (U) [Mass/Vol] Negative Negat bruno^N egative mg/dL [facility] Hemoglobin Auto test strip Ql (U) MODERATE Abnormal Negative^N egative [facility] Interpretation and review of laboratory results Abnormal [facility] Ketones (U) [Mass/Vol] Negative Negat bruno^N egative mg/dL [facility] Leukocyte esterase Auto test strip Ql (U) Negative Negative^N egative [facility] Mucus Ql (Urine sed) PRESENT Abnormal NONE^NONE [facility] Nitrite Auto test strip Ql (U) Negative Negative^N egative [facility] pH (U) 7.0 [pH] 5.0 - 8.5 [facility] Protein (U) [Mass/Vol] Trace Abnormal Negat bruno^N egative mg/dL [facility] RBC Auto (Urine sed) [#/Area] 3 [facility] Specific gravity Refractometry automated (U) [Rel density] 1.024 1.003 - 1.035 [facility] Turbidity Ql (U) CLEAR CLEAR^JOSE R [facility] Urobilinogen Qn (U) NINF [facility] WBC Auto (Urine sed) [#/Area] 3 [facility] POCT , urineon 08-26 Beta HCG ( test) Ql (U) Negative [facility] POCT , urineon 08-25 Beta HCG ( test) Ql (U) Negative [facility] Internal Capacity Analyst Check Completed and Passed Yes [facility] Interpretation and review of laboratory results Normal [facility] POCT Urinalysis Auto Onlyon 09-07-2023 External Poct Urine Blood Trace [facility] External Poct Urine Glucose Negative [facility] External Poct Urine Ketones Negative [facility] External Poct Urine Leukocyte Esterase Negative [facility] External Poct Urine Nitrite Negative [facility] External Poct Urine Ph 7.0 [facility] External Poct Urine Protein Negative [facility] Interpretation and review of laboratory results Abnormal [facility] Alanine aminotransferase [En zymatic activity/volume] in Serum or PlasmaOrdered By: Som Fiore on 05-12-2023 ALT [Catalytic activity/Vol] 8 U/L 7-52 [facility] Albumin [Mass/volume] in Ser um or Plasma by Bromocresol green (BCG) dye binding methoOrdered By: Som Fiore on 05-12-2023 Albumin BCG dye [Mass/Vol] 4.6 g/dL 3.5-5.7 [facility] Alkaline phosphatase [Enzyma tic activity/volume] in Serum or PlasmaOrdered By: Som Fiore on 05-12-2023 ALP [Catalytic activity/Vol] 56 U/L 34-104 [facility] Aspartate aminotransferase [ Enzymatic activity/volume] in Serum or PlasmaOrdered By: Som Fiore on 05-12-2023 AST [Catalytic activity/Vol] 14 U/L 13-39 [facility] Automated erythrocytes count in urine sediment (number/area)Ordered By: Som Fiore on 05-12-2023 RBC Auto (Urine sed) [#/Area] 5-9 [HPF] 0-4 [facility] Automated leukocytes count i n urine sediment (number/area)Ordered By: Som Fiore on 05-12-2023 WBC Auto (Urine sed) [#/Area] 5-9 [HPF] 0-4 [facility] Basophils Auto (Bld) [#/Vol] Ordered By: Som Fiore on 05-12-2023 Basophils (Bld) [#/Vol] 0.0 10*3/uL 0.0-0.2 [facility] Basophils/100 WBC Auto (Bld) Ordered By: Som Fiore on 05-12-2023 Basophils/100 WBC (Bld) 0.5 % . [facility] Bilirubin Test strip Ql (U)O rdered By: Som Fiore on 05-12-2023 Bilirubin Ql (U) Negative Negative [facility] Bilirubin.total [Mass/volume ] in Serum or PlasmaOrdered By: Som Fiore on 05-12-2023 Bilirubin [Mass/Vol] 0.4 mg/dL 0.3-1.0 [facility] Calcium [Mass/volume] in Ser um or PlasmaOrdered By: Som Fiore on 05-12-2023 Calcium [Mass/Vol] 9.4 mg/dL 8.6-10.3 [facility] Carbon dioxide, total [Moles /volume] in Serum or PlasmaOrdered By: Som Fiore on 05-12-2023 CO2 [Moles/Vol] 28.5 mmol/L 21.0-31.0 [facility] Chloride [Moles/volume] in S alexis or PlasmaOrdered By: Som Fiore on 05-12-2023 Chloride [Moles/Vol] 105 mmol/L 98-107 [facility] Color Auto (U)Ordered By: Giovanni Fiore on 05-12-2023 Color (U) Yellow Yellow [facility] Creatinine [Mass/volume] in Serum or PlasmaOrdered By: Som Fiore on 05-12-2023 Creatinine [Mass/Vol] 0.85 mg/dL 0.60-1.20 [facility] Eosinophils Auto (Bld) [#/Vo l]Ordered By: Som Fiore on 05-12-2023 Eosinophils (Bld) [#/Vol] 0.0 10*3/uL 0.0-0.45 [facility] Eosinophils/100 WBC Auto (Bl d)Ordered By: Som Fiore on 05-12-2023 Eosinophils/100 WBC (Bld) 0.5 % . [facility] Erythrocyte distribution wid th Auto (RBC) [Ratio]Ordered By: Som Fiore on 05-12-2023 Erythrocyte distribution width (RBC) [Ratio] 14.2 % 11.9-15.3 [facility] Globulin Calc (S) [Mass/Vol] Ordered By: Som Fiore on 05-12-2023 Globulin (S) [Mass/Vol] 3.1 g/dL [facility] Glucose [Mass/volume] in Ser um or PlasmaOrdered By: Som Fiore on 05-12-2023 Glucose [Mass/Vol] 95 mg/dL 70-100 [facility] Comment on above: ADA recommended refe rence rangeRandom Glucose Reference Range is dependent on time and content of last meal. Glucose of more than 200 mg/dL in a nonstressed, ambulatory subject supports the diagnosis of Diabetes Mellitus. HCG ( test) Giovani soto Ql (U)Ordered By: Som Fiore on 05-12-2023 HCG ( test) Ql (U) Negative [facility] Hematocrit Auto (Bld) [Volum e fraction]Ordered By: Som Fiore on 05-12-2023 Hematocrit (Bld) [Volume fraction] 38.0 % 34.0-46.4 [facility] Hemoglobin [Mass/volume] in BloodOrdered By: oSm Fiore on 05-12-2023 Hemoglobin (Bld) [Mass/Vol] 12.8 g/dL 11.8-15.4 [facility] Ketones Auto test strip (U) [Mass/Vol]Ordered By: Som Fiore on 05-12-2023 Ketones (U) [Mass/Vol] Trace Negative [facility] - UrinalysisOrder ed By: Som Fiore on 05-12-2023 Hyaline casts LM Ql (Urine sed) 0-8 [LPF] 0-8 [facility] Leukocytes [#/volume] correc manjula for nucleated erythrocytes in Blood by Automated counOrdered By: Som Fiore on 05-12-2023 WBC corrected for nucl RBC Auto (Bld) [#/Vol] 9.1 10*3/uL 3.8-11.6 [facility] Lymphocytes Auto (Bld) [#/Vo l]Ordered By: Som Fiore on 05-12-2023 Lymphocytes (Bld) [#/Vol] 3.2 10*3/uL 1.00-4.8 [facility] Lymphocytes/100 WBC Auto (Bl d)Ordered By: Som Fiore on 05-12-2023 Lymphocytes/100 WBC (Bld) 35.0 % . [facility] MCH Auto (RBC) [Entitic mass ]Ordered By: Som Fiore on 05-12-2023 MCH (RBC) [Entitic mass] 28.4 pg 24.7-34.3 [facility] MCHC Auto (RBC) [Mass/Vol]Or dered By: Som Fiore on 05-12-2023 MCHC (RBC) [Mass/Vol] 33.7 g/dL 32.0-35.0 [facility] MCV Auto (RBC) [Entitic vol] Ordered By: Som Fiore on 05-12-2023 MCV (RBC) [Entitic vol] 84.2 fL 80-100 [facility] Monocyte distribution width [Entitic volume] in Blood by AutomatedOrdered By: Som Fiore on 05-12-2023 Monocyte distribution width Auto (Bld) [Entitic vol] 19.05 % 0.00-20.00 [facility] Monocytes Auto (Bld) [#/Vol] Ordered By: Som Fiore on 05-12-2023 Monocytes (Bld) [#/Vol] 0.5 10*3/uL 0.0-0.8 [facility] Monocytes/100 WBC Auto (Bld) Ordered By: Som Fiore on 05-12-2023 Monocytes/100 WBC (Bld) 5.1 % . [facility] Neutrophils Auto (Bld) [#/Vo l]Ordered By: Som Fiore on 05-12-2023 Neutrophils (Bld) [#/Vol] 5.4 10*3/uL 1.8-7.7 [facility] Neutrophils/100 WBC Auto (Bl d)Ordered By: Som Fiore on 05-12-2023 Neutrophils/100 WBC (Bld) 58.9 % . [facility] Nitrite Test strip Ql (U)Ord ered By: Som Fiore on 05-12-2023 Nitrite Ql (U) Negative Negative [facility] No Panel InformationOrdered By: Som Fiore on 05-12-2023 Estimated GFR (CKD-EPI) > 60.0 mL/Min [facility] Creatinine Clearance (Chem 79.00 [facility] Nucleated erythrocytes [Pres ence] in Blood by Automated countOrdered By: Som Fiore on 05-12-2023 Nucleated RBC Auto Ql (Bld) 0.1 /100{WBC} 0-0.5 [facility] Platelet mean volume Auto (B ld) [Entitic vol]Ordered By: Som Fiore on 05-12-2023 Platelet mean volume (Bld) [Entitic vol] 7.6 fL 6.3-10.7 [facility] Platelets Auto (Bld) [#/Vol] Ordered By: Som Fiore on 05-12-2023 Platelets (Bld) [#/Vol] 280 10*3/uL 150-450 [facility] Potassium [Moles/volume] in Serum or PlasmaOrdered By: Som Fiore on 05-12-2023 Potassium [Moles/Vol] 4.0 mmol/L 3.5-5.1 [facility] Protein Auto test strip (U) [Mass/Vol]Ordered By: Som Fiore on 05-12-2023 Protein (U) [Mass/Vol] Negative Negative [facility] Protein [Mass/volume] in Ser um or PlasmaOrdered By: Som Fiore on 05-12-2023 Protein [Mass/Vol] 7.7 g/dL 6.4-8.9 [facility] RBC Auto (Bld) [#/Vol]Ordere d By: Som Fiore on 05-12-2023 RBC (Bld) [#/Vol] 4.51 10*6/uL 3.60-5.00 [facility] Serum or plasma albumin/glob ulin mass ratioOrdered By: Som Fiore on 05-12-2023 Albumin/Globulin [Mass ratio] 1.5 {ratio} [facility] Serum or plasma anion gap de terminationOrdered By: Som Fiore on 05-12-2023 Anion gap [Moles/Vol] TNP [facility] Comment on above: Test not performed Sodium [Moles/volume] in Ser um or PlasmaOrdered By: Som Fiore on 05-12-2023 Sodium [Moles/Vol] 140 mmol/L 136-145 [facility] Specific gravity Auto test s trip (U) [Rel density]Ordered By: Som Fiore on 05-12-2023 Specific gravity (U) [Rel density] 1.022 1.001-1.03 0 [facility] Squamous epithelial cells de tection in urine sediment by light microscopyOrdered By: Som Fiore on 05-12-2023 Epithelial cells.squamous LM Ql (Urine sed) 5-9 [HPF] 0-2 [facility] Urea nitrogen [Mass/volume] in Serum or PlasmaOrdered By: Som Fiore on 05-12-2023 Urea nitrogen [Mass/Vol] 11 mg/dL 7-25 [facility] Urine bacteria detection by automated methodOrdered By: Som Fiore on 05-12-2023 Bacteria Auto Ql (U) 1+ None Seen [facility] Urine clarity by refractomet ry automatedOrdered By: Som Fiore on 05-12-2023 Clarity Refractometry automated (U) Cloudy Clear [facility] Urine glucose measurement by automated test strip (mass/volume)Ordered By: Som Fiore on 05-12-2023 Glucose Auto test strip (U) [Mass/Vol] Normal mg/dL Normal [facility] Urine hemoglobin detection b y automated test stripOrdered By: Som Fiore on 05-12-2023 Hemoglobin Auto test strip Ql (U) Trace Negative [facility] Urine leukocyte esterase det ection by automated test stripOrdered By: Som Fiore on 05-12-2023 Leukocyte esterase Auto test strip Ql (U) Negative Negative [facility] Urobilinogen Auto test strip (U) [Mass/Vol]Ordered By: Som Fiore on 05-12-2023 Urobilinogen (U) [Mass/Vol] Normal mg/dL Normal [facility] WBC Auto (Bld) [#/Vol]Ordere d By: Som Fiore on 05-12-2023 WBC (Bld) [#/Vol] 9.1 10*3/uL 3.8-11.6 [facility] pH Auto test strip (U)Ordere d By: Som Fiore on 05-12-2023 pH (U) 7.0 [pH] 5.0-9.0 [facility] Alanine aminotransferase [En zymatic activity/volume] in Serum or PlasmaOrdered By: Pipe Jose on 04-12-2023 ALT [Catalytic activity/Vol] 8 U/L 7-52 [facility] Albumin [Mass/volume] in Ser um or Plasma by Bromocresol green (BCG) dye binding methoOrdered By: Pipe Jose on 04-12-2023 Albumin BCG dye [Mass/Vol] 4.9 g/dL 3.5-5.7 [facility] Alkaline phosphatase [Enzyma tic activity/volume] in Serum or PlasmaOrdered By: Pipe Jose on 04-12-2023 ALP [Catalytic activity/Vol] 69 U/L 34-104 [facility] Aspartate aminotransferase [ Enzymatic activity/volume] in Serum or PlasmaOrdered By: Pipe Jose on 04-12-2023 AST [Catalytic activity/Vol] 18 U/L 13-39 [facility] Basophils Auto (Bld) [#/Vol] Ordered By: Pipe Jose on 04-12-2023 Basophils (Bld) [#/Vol] 0.0 10*3/uL 0.0-0.2 [facility] Basophils/100 WBC Auto (Bld) Ordered By: Pipe Jose on 04-12-2023 Basophils/100 WBC (Bld) 0.4 % . [facility] Bilirubin.total [Mass/volume ] in Serum or PlasmaOrdered By: Pipe Jose on 04-12-2023 Bilirubin [Mass/Vol] 0.3 mg/dL 0.3-1.0 [facility] Calcium [Mass/volume] in Ser um or PlasmaOrdered By: Pipe Jose on 04-12-2023 Calcium [Mass/Vol] 9.9 mg/dL 8.6-10.3 [facility] Carbon dioxide, total [Moles /volume] in Serum or PlasmaOrdered By: Pipe Jose on 04-12-2023 CO2 [Moles/Vol] 27.5 mmol/L 21.0-31.0 [facility] Chloride [Moles/volume] in S alexis or PlasmaOrdered By: Pipe Jose on 04-12-2023 Chloride [Moles/Vol] 104 mmol/L 98-107 [facility] Creatinine [Mass/volume] in Serum or PlasmaOrdered By: Pipe Jose on 04-12-2023 Creatinine [Mass/Vol] 0.91 mg/dL 0.60-1.20 [facility] Eosinophils Auto (Bld) [#/Vo l]Ordered By: Pipe Jose on 04-12-2023 Eosinophils (Bld) [#/Vol] 0.0 10*3/uL 0.0-0.45 [facility] Eosinophils/100 WBC Auto (Bl d)Ordered By: Pipe Jose on 04-12-2023 Eosinophils/100 WBC (Bld) 0.5 % . [facility] Erythrocyte distribution wid th Auto (RBC) [Ratio]Ordered By: Pipe Jose on 04-12-2023 Erythrocyte distribution width (RBC) [Ratio] 14.8 % 11.9-15.3 [facility] Globulin Calc (S) [Mass/Vol] Ordered By: Pipe Jose on 04-12-2023 Globulin (S) [Mass/Vol] 3.5 g/dL [facility] Glucose [Mass/volume] in Ser um or PlasmaOrdered By: Pipe Jose on 04-12-2023 Glucose [Mass/Vol] 92 mg/dL 70-100 [facility] Comment on above: ADA recommended refe rence rangeRandom Glucose Reference Range is dependent on time and content of last meal. Glucose of more than 200 mg/dL in a nonstressed, ambulatory subject supports the diagnosis of Diabetes Mellitus. Hematocrit Auto (Bld) [Volum e fraction]Ordered By: Pipe Jose on 04-12-2023 Hematocrit (Bld) [Volume fraction] 40.6 % 34.0-46.4 [facility] Hemoglobin [Mass/volume] in BloodOrdered By: Pipe Jose on 04-12-2023 Hemoglobin (Bld) [Mass/Vol] 13.5 g/dL 11.8-15.4 [facility] Leukocytes [#/volume] correc manjula for nucleated erythrocytes in Blood by Automated counOrdered By: Pipe Jose on 04-12-2023 WBC corrected for nucl RBC Auto (Bld) [#/Vol] 9.7 10*3/uL 3.8-11.6 [facility] Lymphocytes Auto (Bld) [#/Vo l]Ordered By: Pipe Jose on 04-12-2023 Lymphocytes (Bld) [#/Vol] 2.5 10*3/uL 1.00-4.8 [facility] Lymphocytes/100 WBC Auto (Bl d)Ordered By: Pipe Jose on 04-12-2023 Lymphocytes/100 WBC (Bld) 25.4 % . [facility] MCH Auto (RBC) [Entitic mass ]Ordered By: Pipe Jose on 04-12-2023 MCH (RBC) [Entitic mass] 28.2 pg 24.7-34.3 [facility] MCHC Auto (RBC) [Mass/Vol]Or dered By: Pipe Jose on 04-12-2023 MCHC (RBC) [Mass/Vol] 33.3 g/dL 32.0-35.0 [facility] MCV Auto (RBC) [Entitic vol] Ordered By: Pipe Jose on 04-12-2023 MCV (RBC) [Entitic vol] 84.9 fL 80-100 [facility] Monocyte distribution width [Entitic volume] in Blood by AutomatedOrdered By: Pipe Jose on 04-12-2023 Monocyte distribution width Auto (Bld) [Entitic vol] 15.89 % 0.00-20.00 [facility] Monocytes Auto (Bld) [#/Vol] Ordered By: Pipe Jose on 04-12-2023 Monocytes (Bld) [#/Vol] 0.5 10*3/uL 0.0-0.8 [facility] Monocytes/100 WBC Auto (Bld) Ordered By: Pipe Jose on 04-12-2023 Monocytes/100 WBC (Bld) 5.6 % . [facility] Neutrophils Auto (Bld) [#/Vo l]Ordered By: Pipe Jose on 04-12-2023 Neutrophils (Bld) [#/Vol] 6.6 10*3/uL 1.8-7.7 [facility] Neutrophils/100 WBC Auto (Bl d)Ordered By: Pipe Jose on 04-12-2023 Neutrophils/100 WBC (Bld) 68.1 % . [facility] No Panel InformationOrdered By: Pipe Jose on 04-12-2023 Estimated GFR (CKD-EPI) > 60.0 mL/Min [facility] Creatinine Clearance (Chem 73.79 [facility] Nucleated erythrocytes [Pres ence] in Blood by Automated countOrdered By: Pipe Jose on 04-12-2023 Nucleated RBC Auto Ql (Bld) 0.1 /100{WBC} 0-0.5 [facility] Platelet mean volume Auto (B ld) [Entitic vol]Ordered By: Pipe Jose on 04-12-2023 Platelet mean volume (Bld) [Entitic vol] 7.7 fL 6.3-10.7 [facility] Platelets Auto (Bld) [#/Vol] Ordered By: Pipe Jose on 04-12-2023 Platelets (Bld) [#/Vol] 307 10*3/uL 150-450 [facility] Potassium [Moles/volume] in Serum or PlasmaOrdered By: Pipe Jose on 04-12-2023 Potassium [Moles/Vol] 4.1 mmol/L 3.5-5.1 [facility] Protein [Mass/volume] in Ser um or PlasmaOrdered By: Pipe Jose on 04-12-2023 Protein [Mass/Vol] 8.4 g/dL 6.4-8.9 [facility] RBC Auto (Bld) [#/Vol]Ordere d By: Pipe Jose on 04-12-2023 RBC (Bld) [#/Vol] 4.78 10*6/uL 3.60-5.00 [facility] Serum or plasma albumin/glob ulin mass ratioOrdered By: Pipe Jose on 04-12-2023 Albumin/Globulin [Mass ratio] 1.4 {ratio} [facility] Serum or plasma anion gap de terminationOrdered By: Pipe Jose on 04-12-2023 Anion gap [Moles/Vol] 13.6 mmol/L 6.0-15.0 [facility] Sodium [Moles/volume] in Ser um or PlasmaOrdered By: Pipe Jose on 04-12-2023 Sodium [Moles/Vol] 141 mmol/L 136-145 [facility] Urea nitrogen [Mass/volume] in Serum or PlasmaOrdered By: Pipe Jose on 04-12-2023 Urea nitrogen [Mass/Vol] 9 mg/dL 01-18 [facility] WBC Auto (Bld) [#/Vol]Ordere d By: Pipe Jose on 04-12-2023 WBC (Bld) [#/Vol] 9.7 10*3/uL 3.8-11.6 [facility] Alanine aminotransferase [En zymatic activity/volume] in Serum or PlasmaOrdered By: Milton Rivera on 03-23-2023 ALT [Catalytic activity/Vol] 8 U/L [facility] Albumin [Mass/volume] in Ser um or Plasma by Bromocresol green (BCG) dye binding methoOrdered By: Milton Rivera on 03-23-2023 Albumin BCG dye [Mass/Vol] 4.9 g/dL 3.5-5.7 [facility] Alkaline phosphatase [Enzyma tic activity/volume] in Serum or PlasmaOrdered By: Milton Rivera on 03-23-2023 ALP [Catalytic activity/Vol] 59 U/L 34-104 [facility] Aspartate aminotransferase [ Enzymatic activity/volume] in Serum or PlasmaOrdered By: Milton Rivera on 03-23-2023 AST [Catalytic activity/Vol] 20 U/L 13-39 [facility] Basophils Auto (Bld) [#/Vol] Ordered By: Milton Rivera on 03-23-2023 Basophils (Bld) [#/Vol] 0.0 10*3/uL 0.0-0.2 [facility] Basophils/100 WBC Auto (Bld) Ordered By: Milton Rivera on 03-23-2023 Basophils/100 WBC (Bld) 0.5 % . [facility] Bilirubin.total [Mass/volume ] in Serum or PlasmaOrdered By: Milton Rivera 03-23-2023 Bilirubin [Mass/Vol] 0.4 mg/dL 0.3-1.0 [facility] Calcium [Mass/volume] in Ser um or PlasmaOrdered By: Milton Rivera 03-23-2023 Calcium [Mass/Vol] 9.6 mg/dL 8.6-10.3 [facility] Carbon dioxide, total [Moles /volume] in Serum or PlasmaOrdered By: Milton Rivera 03-23-2023 CO2 [Moles/Vol] 21.8 mmol/L 21.0-31.0 [facility] Chloride [Moles/volume] in S alexis or PlasmaOrdered By: Milton Rivera 03-23-2023 Chloride [Moles/Vol] 105 mmol/L 98-107 [facility] Creatine kinase [Enzymatic a ctivity/volume] in Serum or PlasmaOrdered By: Milton Rivera 03-23-2023 CK [Catalytic activity/Vol] 45 U/L 30-223 [facility] Creatinine [Mass/volume] in Serum or PlasmaOrdered By: Milton Rivera 03-23-2023 Creatinine [Mass/Vol] 0.79 mg/dL 0.60-1.20 [facility] Eosinophils Auto (Bld) [#/Vo l]Ordered By: Milton Rivera 03-23-2023 Eosinophils (Bld) [#/Vol] 0.0 10*3/uL 0.0-0.45 [facility] Eosinophils/100 WBC Auto (Bl d)Ordered By: Milton Rivera on 03-23-2023 Eosinophils/100 WBC (Bld) 0.4 % . [facility] Erythrocyte distribution wid th Auto (RBC) [Ratio]Ordered By: Milton Rivera on 03-23-2023 Erythrocyte distribution width (RBC) [Ratio] 15.2 % 11.9-15.3 [facility] Globulin Calc (S) [Mass/Vol] Ordered By: Milton Rivera on 03-23-2023 Globulin (S) [Mass/Vol] 3.2 g/dL [facility] Glucose Glucometer (BldC) [M ass/Vol]Ordered By: CRISTIANE SHARMA on 03-23-2023 Glucose [Mass/Vol] 88 mg/dL [facility] Comment on above: Random Glucose Refer ence Range is dependent on time and content of last meal. Glucose of more than 200 mg/dL in a nonstressed, ambulatory subject supports the diagnosis of Diabetes Mellitus. Glucose [Mass/volume] in Ser um or PlasmaOrdered By: Milton Rivera on 03-23-2023 Glucose [Mass/Vol] 81 mg/dL 70-100 [facility] Comment on above: ADA recommended refe rence rangeRandom Glucose Reference Range is dependent on time and content of last meal. Glucose of more than 200 mg/dL in a nonstressed, ambulatory subject supports the diagnosis of Diabetes Mellitus. Hematocrit Auto (Bld) [Volum e fraction]Ordered By: Milton Rivera on 03-23-2023 Hematocrit (Bld) [Volume fraction] 41.0 % 34.0-46.4 [facility] Hemoglobin [Mass/volume] in BloodOrdered By: Milton Rivera on 03-23-2023 Hemoglobin (Bld) [Mass/Vol] 13.8 g/dL 11.8-15.4 [facility] Lactate [Moles/volume] in Se rum or PlasmaOrdered By: Milton Rivera on 03-23-2023 Lactate [Moles/Vol] 0.8 mmol/L 0.5-2.2 [facility] Leukocytes [#/volume] correc manjula for nucleated erythrocytes in Blood by Automated counOrdered By: Milton Rivera on 03-23-2023 WBC corrected for nucl RBC Auto (Bld) [#/Vol] 8.9 10*3/uL 3.8-11.6 [facility] Lymphocytes Auto (Bld) [#/Vo l]Ordered By: Milton Rivera on 03-23-2023 Lymphocytes (Bld) [#/Vol] 3.3 10*3/uL 1.00-4.8 [facility] Lymphocytes/100 WBC Auto (Bl d)Ordered By: Milton Rivera on 03-23-2023 Lymphocytes/100 WBC (Bld) 37.2 % . [facility] MCH Auto (RBC) [Entitic mass ]Ordered By: Milton Rivera on 03-23-2023 MCH (RBC) [Entitic mass] 28.8 pg 24.7-34.3 [facility] MCHC Auto (RBC) [Mass/Vol]Or dered By: Milton Rivera on 03-23-2023 MCHC (RBC) [Mass/Vol] 33.5 g/dL 32.0-35.0 [facility] MCV Auto (RBC) [Entitic vol] Ordered By: Milton Rivera on 03-23-2023 MCV (RBC) [Entitic vol] 85.9 fL 80-100 [facility] Monocyte distribution width [Entitic volume] in Blood by AutomatedOrdered By: Milton Rivera on 03-23-2023 Monocyte distribution width Auto (Bld) [Entitic vol] 21.12 % 0.00-20.00 [facility] Comment on above: For adults in ED, MD W > 20.0 may be associated with a higher risk of sepsis during the first 12 hrs of hospital admission Monocytes Auto (Bld) [#/Vol] Ordered By: Milton Rivera on 03-23-2023 Monocytes (Bld) [#/Vol] 0.6 10*3/uL 0.0-0.8 [facility] Monocytes/100 WBC Auto (Bld) Ordered By: Milton Rivera on 03-23-2023 Monocytes/100 WBC (Bld) 6.9 % . [facility] Neutrophils Auto (Bld) [#/Vo l]Ordered By: Milton Rivera on 03-23-2023 Neutrophils (Bld) [#/Vol] 4.9 10*3/uL 1.8-7.7 [facility] Neutrophils/100 WBC Auto (Bl d)Ordered By: Milton Rivera on 03-23-2023 Neutrophils/100 WBC (Bld) 55.0 % . [facility] No Panel InformationOrdered By: Margarita Gallo on 03-23-2023 Lamotrigine (Lamictal) Level 2.0 ug/mL 2.0-20.0 [facility] Comment on above: Detection Limit = 1. 0Performed at: [facility] [address] [id number] Director: Sina Hills MD, Phone: [phone] Levetiracetam (Keppra) Level 15.5 ug/mL 10.0-40.0 [facility] Comment on above: Performed at: [facility] [place], [place] [id number] Director: Sina Hills MD, Phone: [phone] No Panel InformationOrdered By: PROVIDER TEMP on 03-23-2023 Bedside Glucose Comment Glu2: cleaned meter [facility] No Panel InformationOrdered By: Milton Rivera on 03-23-2023 Estimated GFR (CKD-EPI) > 60.0 mL/Min [facility] Creatinine Clearance (Chem 85.00 [facility] Nucleated erythrocytes [Pres ence] in Blood by Automated countOrdered By: Milton Rivera on 03-23-2023 Nucleated RBC Auto Ql (Bld) 0.1 /100{WBC} 0-0.5 [facility] Platelet mean volume Auto (B ld) [Entitic vol]Ordered By: Milton Rivera on 03-23-2023 Platelet mean volume (Bld) [Entitic vol] 8.6 fL 6.3-10.7 [facility] Platelets Auto (Bld) [#/Vol] Ordered By: Milton Rivera on 03-23-2023 Platelets (Bld) [#/Vol] 257 10*3/uL 150-450 [facility] Potassium [Moles/volume] in Serum or PlasmaOrdered By: Milton Rivera on 03-23-2023 Potassium [Moles/Vol] 4.3 mmol/L 3.5-5.1 [facility] Prolactin [Mass/volume] in S alexis or PlasmaOrdered By: Milton Rivera on 03-23-2023 Prolactin [Mass/Vol] 23.65 ng/mL 3.34-26.72 [facility] Protein [Mass/volume] in Ser um or PlasmaOrdered By: Milton Rivera on 03-23-2023 Protein [Mass/Vol] 8.1 g/dL 6.4-8.9 [facility] RBC Auto (Bld) [#/Vol]Ordere d By: Milton Rivera on 03-23-2023 RBC (Bld) [#/Vol] 4.78 10*6/uL 3.60-5.00 [facility] Serum or plasma albumin/glob ulin mass ratioOrdered By: Milton Rivera on 03-23-2023 Albumin/Globulin [Mass ratio] 1.5 {ratio} [facility] Serum or plasma anion gap de terminationOrdered By: Milton Rivera on 03-23-2023 Anion gap [Moles/Vol] 16.5 mmol/L 6.0-15.0 [facility] Sodium [Moles/volume] in Ser um or PlasmaOrdered By: Milton Rivera on 03-23-2023 Sodium [Moles/Vol] 139 mmol/L 136-145 [facility] Urea nitrogen [Mass/volume] in Serum or PlasmaOrdered By: Milton Rivera on 03-23-2023 Urea nitrogen [Mass/Vol] 12 mg/dL 01-18 [facility] WBC Auto (Bld) [#/Vol]Ordere d By: Milton Rivera on 03-23-2023 WBC (Bld) [#/Vol] 8.9 10*3/uL 3.8-11.6 [facility] Alanine aminotransferase [En zymatic activity/volume] in Serum or PlasmaOrdered By: Som Fiore on 03-11-2023 ALT [Catalytic activity/Vol] 6 U/L 7 [facility] Albumin [Mass/volume] in Ser um or Plasma by Bromocresol green (BCG) dye binding methoOrdered By: Som Fiore on 03-11-2023 Albumin BCG dye [Mass/Vol] 4.5 g/dL 3.5-5.7 [facility] Alkaline phosphatase [Enzyma tic activity/volume] in Serum or PlasmaOrdered By: Som Fiore on 03-11-2023 ALP [Catalytic activity/Vol] 55 U/L 34-104 [facility] Aspartate aminotransferase [ Enzymatic activity/volume] in Serum or PlasmaOrdered By: Som Fiore on 03-11-2023 AST [Catalytic activity/Vol] 14 U/L 13-39 [facility] Automated erythrocytes count in urine sediment (number/area)Ordered By: Som Fiore on 03-11-2023 RBC Auto (Urine sed) [#/Area] 3-4 [HPF] 0-4 [facility] Automated leukocytes count i n urine sediment (number/area)Ordered By: Som Fiore on 03-11-2023 WBC Auto (Urine sed) [#/Area] 3-4 [HPF] 0-4 [facility] Basophils Auto (Bld) [#/Vol] Ordered By: Som Fiore on 03-11-2023 Basophils (Bld) [#/Vol] 0.0 10*3/uL 0.0-0.2 [facility] Basophils/100 WBC Auto (Bld) Ordered By: Som Fiore on 03-11-2023 Basophils/100 WBC (Bld) 0.5 % . [facility] Bilirubin Test strip Ql (U)O rdered By: Som Fiore on 03-11-2023 Bilirubin Ql (U) Negative Negative [facility] Bilirubin.total [Mass/volume ] in Serum or PlasmaOrdered By: Som Fiore on 03-11-2023 Bilirubin [Mass/Vol] 0.4 mg/dL 0.3-1.0 [facility] Calcium [Mass/volume] in Ser um or PlasmaOrdered By: Som Fiore on 03-11-2023 Calcium [Mass/Vol] 9.3 mg/dL 8.6-10.3 [facility] Carbon dioxide, total [Moles /volume] in Serum or PlasmaOrdered By: Som Fiore on 03-11-2023 CO2 [Moles/Vol] 23.3 mmol/L 21.0-31.0 [facility] Chloride [Moles/volume] in S alexis or PlasmaOrdered By: Som Fiore on 03-11-2023 Chloride [Moles/Vol] 107 mmol/L 98-107 [facility] Color Auto (U)Ordered By: Giovanni Fiore on 03-11-2023 Color (U) Yellow Yellow [facility] Creatinine [Mass/volume] in Serum or PlasmaOrdered By: Som Fiore on 03-11-2023 Creatinine [Mass/Vol] 0.91 mg/dL 0.60-1.20 [facility] Eosinophils Auto (Bld) [#/Vo l]Ordered By: Som Fiore on 03-11-2023 Eosinophils (Bld) [#/Vol] 0.0 10*3/uL 0.0-0.45 [facility] Eosinophils/100 WBC Auto (Bl d)Ordered By: Som Fiore on 03-11-2023 Eosinophils/100 WBC (Bld) 0.5 % . [facility] Erythrocyte distribution wid th Auto (RBC) [Ratio]Ordered By: Som Fiore on 03-11-2023 Erythrocyte distribution width (RBC) [Ratio] 15.3 % 11.9-15.3 [facility] Globulin Calc (S) [Mass/Vol] Ordered By: Som Fiore on 03-11-2023 Globulin (S) [Mass/Vol] 2.9 g/dL [facility] Glucose [Mass/volume] in Ser um or PlasmaOrdered By: Som Fiore on 03-11-2023 Glucose [Mass/Vol] 89 mg/dL 70-100 [facility] Comment on above: ADA recommended refe rence rangeRandom Glucose Reference Range is dependent on time and content of last meal. Glucose of more than 200 mg/dL in a nonstressed, ambulatory subject supports the diagnosis of Diabetes Mellitus. Hematocrit Auto (Bld) [Volum e fraction]Ordered By: Som Fiore on 03-11-2023 Hematocrit (Bld) [Volume fraction] 37.1 % 34.0-46.4 [facility] Hemoglobin [Mass/volume] in BloodOrdered By: Som Fiore on 03-11-2023 Hemoglobin (Bld) [Mass/Vol] 12.5 g/dL 11.8-15.4 [facility] Ketones Auto test strip (U) [Mass/Vol]Ordered By: Som Fiore on 03-11-2023 Ketones (U) [Mass/Vol] Negative Negative Fi [facility] - UrinalysisOrder ed By: Som Fiore on 03-11-2023 Hyaline casts LM Ql (Urine sed) 0-8 [LPF] 0-8 [facility] Leukocytes [#/volume] correc manjula for nucleated erythrocytes in Blood by Automated counOrdered By: Som Fiore on 03-11-2023 WBC corrected for nucl RBC Auto (Bld) [#/Vol] 8.2 10*3/uL 3.8-11.6 [facility] Lymphocytes Auto (Bld) [#/Vo l]Ordered By: Som Fiore on 03-11-2023 Lymphocytes (Bld) [#/Vol] 2.0 10*3/uL 1.00-4.8 [facility] Lymphocytes/100 WBC Auto (Bl d)Ordered By: Som Fiore on 03-11-2023 Lymphocytes/100 WBC (Bld) 23.7 % . [facility] MCH Auto (RBC) [Entitic mass ]Ordered By: Som Fiore on 03-11-2023 MCH (RBC) [Entitic mass] 28.7 pg 24.7-34.3 [facility] MCHC Auto (RBC) [Mass/Vol]Or dered By: Som Fiore on 03-11-2023 MCHC (RBC) [Mass/Vol] 33.7 g/dL 32.0-35.0 [facility] MCV Auto (RBC) [Entitic vol] Ordered By: Som Fiore on 03-11-2023 MCV (RBC) [Entitic vol] 85.1 fL 80-100 [facility] Monocyte distribution width [Entitic volume] in Blood by AutomatedOrdered By: Som Fiore on 03-11-2023 Monocyte distribution width Auto (Bld) [Entitic vol] 17.06 % 0.00-20.00 [facility] Monocytes Auto (Bld) [#/Vol] Ordered By: Som Fiore on 03-11-2023 Monocytes (Bld) [#/Vol] 0.5 10*3/uL 0.0-0.8 [facility] Monocytes/100 WBC Auto (Bld) Ordered By: Som Fiore on 03-11-2023 Monocytes/100 WBC (Bld) 5.8 % . [facility] Neutrophils Auto (Bld) [#/Vo l]Ordered By: Som Fiore on 03-11-2023 Neutrophils (Bld) [#/Vol] 5.7 10*3/uL 1.8-7.7 [facility] Neutrophils/100 WBC Auto (Bl d)Ordered By: Som Fiore on 03-11-2023 Neutrophils/100 WBC (Bld) 69.5 % . [facility] Nitrite Test strip Ql (U)Ord ered By: Som Fiore on 03-11-2023 Nitrite Ql (U) Negative Negative [facility] No Panel InformationOrdered By: Som Fiore on 03-11-2023 Levetiracetam (Keppra) Level 30.8 ug/mL 10.0-40.0 [facility] Comment on above: Performed at: - [address] [id number] Director: Sina Hills MD, Phone: [phone] Estimated GFR (CKD-EPI) > 60.0 mL/Min [facility] Creatinine Clearance (Chem 65.12 [facility] Nucleated erythrocytes [Pres ence] in Blood by Automated countOrdered By: Som Fiore on 03-11-2023 Nucleated RBC Auto Ql (Bld) 0.0 /100{WBC} 0-0.5 [facility] Platelet mean volume Auto (B ld) [Entitic vol]Ordered By: Som Fiore on 03-11-2023 Platelet mean volume (Bld) [Entitic vol] 8.0 fL 6.3-10.7 [facility] Platelets Auto (Bld) [#/Vol] Ordered By: Som Fiore on 03-11-2023 Platelets (Bld) [#/Vol] 272 10*3/uL 150-450 [facility] Potassium [Moles/volume] in Serum or PlasmaOrdered By: Som Fiore on 03-11-2023 Potassium [Moles/Vol] 3.6 mmol/L 3.5-5.1 [facility] Protein Auto test strip (U) [Mass/Vol]Ordered By: Som Fiore on 03-11-2023 Protein (U) [Mass/Vol] Negative Negative Fi [facility] Protein [Mass/volume] in Ser um or PlasmaOrdered By: Som Fiore on 03-11-2023 Protein [Mass/Vol] 7.4 g/dL 6.4-8.9 [facility] RBC Auto (Bld) [#/Vol]Ordere d By: Som Fiore on 03-11-2023 RBC (Bld) [#/Vol] 4.36 10*6/uL 3.60-5.00 [facility] Serum or plasma albumin/glob ulin mass ratioOrdered By: Som Fiore on 03-11-2023 Albumin/Globulin [Mass ratio] 1.6 {ratio} [facility] Serum or plasma anion gap de terminationOrdered By: Som Fiore on 03-11-2023 Anion gap [Moles/Vol] 12.3 mmol/L 6.0-15.0 Fi [facility] Sodium [Moles/volume] in Ser um or PlasmaOrdered By: Som Fiore 03-11-2023 Sodium [Moles/Vol] 139 mmol/L 136-145 [facility] Specific gravity Auto test s trip (U) [Rel density]Ordered By: Som Fiore on 03-11-2023 Specific gravity (U) [Rel density] 1.019 1.001-1.03 0 [facility] Squamous epithelial cells de tection in urine sediment by light microscopyOrdered By: Som Fiore 03-11-2023 Epithelial cells.squamous LM Ql (Urine sed) 1-2 [HPF] 0-2 [facility] Urea nitrogen [Mass/volume] in Serum or PlasmaOrdered By: Som Fiore on 03-11-2023 Urea nitrogen [Mass/Vol] 10 mg/dL 7-25 [facility] Urine bacteria detection by automated methodOrdered By: Som Fiore on 03-11-2023 Bacteria Auto Ql (U) 1+ None Seen [facility] Urine clarity by refractomet ry automatedOrdered By: Som Fiore on 03-11-2023 Clarity Refractometry automated (U) Clear Clear [facility] Urine glucose measurement by automated test strip (mass/volume)Ordered By: Som Fiore on 03-11-2023 Glucose Auto test strip (U) [Mass/Vol] Normal mg/dL Normal [facility] Urine hemoglobin detection b y automated test stripOrdered By: Som Fiore on 03-11-2023 Hemoglobin Auto test strip Ql (U) 1+ Negative [facility] Urine leukocyte esterase det ection by automated test stripOrdered By: Som Fiore on 03-11-2023 Leukocyte esterase Auto test strip Ql (U) Negative Negative [facility] Urobilinogen Auto test strip (U) [Mass/Vol]Ordered By: Som Fiore on 03-11-2023 Urobilinogen (U) [Mass/Vol] Normal mg/dL Normal [facility] WBC Auto (Bld) [#/Vol]Ordere d By: Som Fiore on 03-11-2023 WBC (Bld) [#/Vol] 8.2 10*3/uL 3.8-11.6 [facility] pH Auto test strip (U)Ordere d By: Som Fiore on 03-11-2023 pH (U) 7.0 [pH] 5.0-9.0 [facility] CBC with Auto Differentialon 02-06-2023 Basophils (Bld) [#/Vol] [facility] Basophils/100 WBC (Bld) 0 % 0 - 2 % [facility] Eosinophils (Bld) [#/Vol] [facility] Eosinophils/100 WBC (Bld) 0 % Low 1 - 4 % [facility] Erythrocyte distribution width (RBC) [Ratio] 12.8 % 11.8 - 14.4 % [facility] Hematocrit (Bld) [Volume fraction] 40.5 % 36.3 - 47.1 % [facility] Hemoglobin (Bld) [Mass/Vol] 13.7 g/dL 11.9 - 15.1 g/dL [facility] Immature granulocytes (Bld) [#/Vol] [facility] Immature granulocytes/100 WBC (Bld) 0 % 0 [facility] Interpretation and review of laboratory results Abnormal [facility] Lymphocytes/100 WBC (Bld) 26 % 25 - 45 % [facility] Lymphocytes/100 WBC (Bld) 2.58 % [facility] MCH (RBC) [Entitic mass] 28.5 pg 25.2 - 33.5 pg [facility] MCHC (RBC) [Mass/Vol] 33.8 g/dL 28.4 - 34.8 g/dL [facility] MCV (RBC) [Entitic vol] 84.2 fL 82.6 - 102.9 fL [facility] Monocytes/100 WBC (Bld) 6 % 2 - 8 % [facility] Monocytes/100 WBC (Bld) 0.64 % [facility] Neutrophils/100 WBC (Bld) 68 % High 34 - 64 % [facility] Nucleated RBC/100 WBC (Bld) [Ratio] 0.0 % 0.0 per 100 WBC [facility] Platelet mean volume (Bld) [Entitic vol] 9.4 fL 8.1 - 13.5 fL [facility] Platelets (Bld) [#/Vol] 364 10*3/uL [facility] RBC (Bld) [#/Vol] 4.81 10*6/uL 3.95 - 5.11 m/uL [facility] Segmented neutrophils/100 WBC (Bld) 6.71 % [facility] WBC other (Bld) [#/Vol] 10.0 [facility] CBC with Diffon 02-06-2023 Abs. Basophil <0.03 Normal 0.00-0.20 [facility] Comment on above: Performed By: #### Noemy Santamaria CP, CDP #### [facility] [address] [place] [address] [employer] Service Officer: Debbie Molina MD Abs. Eosinophil <0.03 Normal 0.00-0.44 [facility] Comment on above: Performed By: #### Noemy Santamaria CP, CDP #### [facility] [address] [place] [address] [place] [place], [place] [phone] [employer] Service Officer: Debbie Molina MD Abs.Imm.Granulocyte <0.03 Normal 0.00-0.30 [facility] Comment on above: Performed By: #### Noemy Santamaria CP, CDP #### [address] [place], [place] [phone] [employer] Service Officer: Debbie Molina MD Abs.Neutrophil (Seg) 6.71 k/uL Normal 1.50-8.10 [facility] Comment on above: Performed By: #### Noemy Santamaria CP, CDP #### [address] [place], [facility]83 [employer] Service Officer: Debbie Molina MD Basophils/100 WBC (Bld) 0 % Normal 0-2 [facility] Comment on above: Performed By: #### Noemy Santamaria CP, CDP #### [address] [place], [place] [address] [employer] Service Officer: Debbie Molina MD Eosinophils/100 WBC (Bld) 0 % Low 1-4 [facility] Comment on above: Performed By: #### Noemy Santamaria CP, CDP #### [address] [place], [facility]83 [employer] Service Officer: Debbie Molina MD Erythrocyte distribution width (RBC) [Ratio] 12.8 % Normal 11.8-14.4 [facility] Comment on above: Performed By: #### Noemy Santamaria CP, CDP #### [address] [place], [place] [phone] Veterans Service Officer: Debbie Molina MD Hematocrit (Bld) [Volume fraction] 40.5 % Normal 36.3-47.1 [facility] Comment on above: Performed By: #### Noemy Santamaria CP, CDP #### [address] [place], [facility]83 [employer] Service Officer: Debbie Molina MD Hemoglobin (Bld) [Mass/Vol] 13.7 g/dL Normal 11.9-15.1 [facility] Comment on above: Performed By: #### Noemy Santamaria CP, CDP #### [address] [place], [place] [phone] Veterans Service Officer: Debbie Molina MD Immature granulocytes/100 WBC (Bld) 0 % Normal 0 [facility] Comment on above: Performed By: #### Noemy Santamaria CP, CDP #### [address] [place], [place] [phone] [employer] Service Officer: Debbie Molina MD Lymphocytes (Bld) [#/Vol] 2.58 10*3/uL Normal 1.10-3.70 [facility] Comment on above: Performed By: #### Noemy Santamaria CP, CDP #### [address] [place], [place] [phone] Veterans Service Officer: Debbie Molina MD Lymphocytes/100 WBC (Bld) 26 % Normal 25-45 [facility] Comment on above: Performed By: #### Noemy Santamaria CP, CDP #### [address] [place], [place] [phone] Veterans Service Officer: Debbie Molina MD MCH (RBC) [Entitic mass] 28.5 pg Normal 25.2-33.5 [facility] Comment on above: Performed By: #### Noemy Santamaria CP, CDP #### [address] [place], [place] [phone] Veterans Service Officer: Debbie Molina MD MCHC (RBC) [Mass/Vol] 33.8 g/dL Normal 28.4-34.8 [facility] Comment on above: Performed By: #### Noemy Santamaria CP, CDP #### [address] [place], [place] [phone] Veterans Service Officer: Debbie Molina MD MCV (RBC) [Entitic vol] 84.2 fL Normal 82.6-102.9 [facility] Comment on above: Performed By: #### Noemy Santamaria CP, CDP #### [facility] [address] [place], [place] [phone] ([phone] [employer] Service Officer: Debbie Molina MD Monocytes (Bld) [#/Vol] 0.64 10*3/uL Normal 0.10-1.40 [facility] Comment on above: Performed By: #### Noemy Santamaria CP, CDP #### [facility] [address] [place] [address] Veterans Service Officer: Debbie Molina MD Monocytes/100 WBC (Bld) 6 % Normal 2-8 [facility] Comment on above: Performed By: #### Noemy Santamaria CP, CDP #### [facility] [address] [place], [place] [address] Veterans Service Officer: Debbie Molina MD Neutrophil (Seg) 68 % High 34-64 [facility] Comment on above: Performed By: #### Noemy Santamaria CP, CDP #### [address] [place], [place] [address] Veterans Service Officer: Debbie Molina MD NRBC Automated 0.0 per 100 WBC Normal 0.0 [facility] Comment on above: Performed By: #### Noemy Santamaria CP, CDP #### [address] [place], [facility]83 Veterans Service Officer: Debbie Molina MD Platelet mean volume (Bld) [Entitic vol] 9.4 fL Normal 8.1-13.5 [facility] Comment on above: Performed By: #### Noemy Santamaria CP, CDP #### [facility] [address] [place], [place] [phone] Veterans Service Officer: Debbie Molina MD Platelets (Bld) [#/Vol] 364 10*3/uL Normal 138-453 [facility] Comment on above: Performed By: #### Noemy Santamaria CP, CDP #### [facility] [address] [place] [address] Veterans Service Officer: Debbie Molina MD RBC (Bld) [#/Vol] 4.81 10*6/uL Normal 3.95-5.11 [facility] Comment on above: Performed By: #### Noemy Santamaria CP, CDP #### [facility] [address] [place], [place] [phone] Veterans Service Officer: Debbie Molina MD WBC (Bld) [#/Vol] 10.0 10*3/uL Normal 4.5-13.5 [facility] Comment on above: Performed By: #### Noemy Santamaria CP, CDP #### [facility] [address] [place], [place] [phone] Veterans Service Officer: Debbie Molina MD [facility] 02-06-2023 Albumin [Mass/Vol] 4.9 g/dL 3.5 - 5.2 g/dL [facility] Albumin/Globulin [Mass ratio] 1.8 {ratio} 1.0 - 2.5 [facility] ALP [Catalytic activity/Vol] 74 U/L 35 - 104 U/L [facility] ALT [Catalytic activity/Vol] 6 U/L 5 - 33 U/L [facility] Anion gap [Moles/Vol] 14 mmol/L 9 - 17 mmol/L [facility] AST [Catalytic activity/Vol] 16 U/L NINF - 32 U/L [facility] Bilirubin [Mass/Vol] 0.4 mg/dL 0.3 - 1 .2 mg/dL [facility] Calcium [Mass/Vol] 9.6 mg/dL 8.6 - 10. 4 mg/dL [facility] Chloride [Moles/Vol] 102 mmol/L 98 - 10 7 mmol/L [facility] CO2 [Moles/Vol] 25 mmol/L 20 - 31 mmol/L [facility] Creatinine [Mass/Vol] 0.7 mg/dL 0.5 - 0.9 mg/dL [facility] GFR/1.73 sq M.predicted MDRD (S/P/Bld) [Vol rate/Area] - [facility] Comment on above: These results are not [...] 111 mg/dL High 70 - 99 mg/dL [facility] Interpretation and review of laboratory results Abnormal [facility] Potassium [Moles/Vol] 4.0 mmol/L 3.7 - 5.3 mmol/L [facility] Protein [Mass/Vol] 7.7 g/dL 6.4 - 8.3 g/dL [facility] Sodium [Moles/Vol] 141 mmol/L 135 - 144 mmol/L [facility] Urea nitrogen [Mass/Vol] 8 mg/dL 6 - 20 mg/dL [facility] Urea nitrogen/Creatinine [Mass ratio] 11 mg/mg 9 - 20 [facility] HEAD WO CONTRASTon 2022 CT HEAD [...] Ferdinand Chavarria MD 02/06/23 Final result Normal [facility] CT Head WO Contraston 2022 1. No acute intracra nial abnormality. [facility] CONSOLIDATED EXAMINATION: CT OF THE HEAD [...] clear. SOFT TISSUES/SKULL: The calvarium is intact. [facility] Ferdinand Chavarria MD - 02/06/2023 EXAMINATION: CT [...] IMPRESSION: 1. No acute intracranial abnormality. [facility] Radiology Study observation (narrative) [facility] CT Head WO ContrastOrdered B y: Ferdinand Chavarria on 02-06-2023 [facility] Work Phone: Comp Metabolic Profon 2022 Albumin [Mass/Vol] 4.9 g/dL Normal 3.5-5.2 [facility] Comment on above: Performed By: #### Noemy Santamaria CP, CDP #### [facility] [address] [place], [place] [phone] [employer] Service Officer: Debbie Molina MD Albumin/Glob Ratio 1.8 Normal 1.0-2.5 [facility] Comment on above: Performed By: #### Noemy Santamaria CP, CDP #### [facility] [address] [place] [address] Veterans Service Officer: Debbie Molina MD Alkaline Phos 74 U/L Normal 35-104 [facility] Comment on above: Performed By: #### Noemy Santamaria CP, CDP #### [facility] [address] [place], [place] [phone] Veterans Service Officer: Debbie Molina MD ALT [Catalytic activity/Vol] 6 U/L Normal 5-33 [facility] Comment on above: Performed By: #### Noemy Santamaria CP, CDP #### [address] [place], [place] [phone] Veterans Service Officer: Debbie Molina MD Anion gap [Moles/Vol] 14 mmol/L Normal 9-17 [facility] Comment on above: Performed By: #### Noemy Santamaria CP, CDP #### [facility] [address] [place] [address] Veterans Service Officer: Debbie Molina MD AST [Catalytic activity/Vol] 16 U/L Normal <32 [facility] Comment on above: Performed By: #### Noemy Santamaria CP, CDP #### [address] [place], [place] [phone] Veterans Service Officer: Debbie Molina MD Bilirubin [Mass/Vol] 0.4 mg/dL Normal 0.3-1.2 [facility] [place] Comment on above: Performed By: #### Noemy Santamaria CP, CDP #### [facility] [address] [place], [place] 9243883 Veterans Service Officer: Debbie Molina MD BUN/CRE Ratio 11 Normal 9-20 [facility] Comment on above: Performed By: #### Noemy Santamaria CP, CDP #### [facility] [address] [place], [place] [phone] Veterans Service Officer: Debbie Molina MD Calcium [Mass/Vol] 9.6 mg/dL Normal 8.6-10.4 [facility] Comment on above: Performed By: #### Noemy Santamaria CP, CDP #### [facility] [address] [place], [place] [phone] Veterans Service Officer: Debbie Molina MD Chloride [Moles/Vol] 102 mmol/L Normal 98-107 [facility] [place] Comment on above: Performed By: #### Noemy Santamaria CP, CDP #### [facility] [address] [place], [place] [phone] Veterans Service Officer: Debbie Molina MD CO2 [Moles/Vol] 25 mmol/L Normal 20-31 [facility] Comment on above: Performed By: #### Noemy Santamaria CP, CDP #### [facility] [address] [place], [place] [phone] Veterans Service Officer: Debbie Molina MD Creatinine [Mass/Vol] 0.7 mg/dL Normal 0.5-0.9 [facility] Comment on above: Performed By: #### Noemy Santamaria CP, CDP #### [facility] [address] [place] [address] Veterans Service Officer: Debbie Molina MD GFR/1.73 sq M.predicted among non-blacks MDRD (S/P/Bld) [Vol rate/Area] mL/min/{1.73_m2} Normal >60 [facility] Comment on above: Result [...] By: #### Noemy Santamaria CP, CDP #### [facility] [address] [place] [address] [place], [place] [phone] Veterans Service Officer: Debbie Molina MD Glucose [Mass/Vol] 111 mg/dL High 70-99 [facility] Comment on above: Performed By: #### Noemy Santamaria CP, CDP #### [address] [place], [place] [phone] Veterans Service Officer: Debbie Molina MD Potassium [Moles/Vol] 4.0 mmol/L Normal 3.7-5.3 [facility] Comment on above: Performed By: #### Noemy Santamaria CP, CDP #### [address] [place], [place] [phone] Veterans Service Officer: Debbie Molina MD Protein [Mass/Vol] 7.7 g/dL Normal 6.4-8.3 [facility] Comment on above: Performed By: #### Noemy Santamaria CP, CDP #### [address] [place], [place] [phone] Veterans Service Officer: Debbie Molina MD Sodium [Moles/Vol] 141 mmol/L Normal 135-144 [facility] Comment on above: Performed By: #### M ELAN Santamaria, CDP #### [facility] [address] [place], [place] [phone] Veterans Service Officer: Debbie Molina MD Urea nitrogen [Mass/Vol] 8 mg/dL Normal 6-20 [facility] Comment on above: Performed By: #### Noemy Santamaria CP, CDP #### [facility] [address] [place] [address] Dr[address] [place], [place] [phone] Veterans Service Officer: Debbie Molina MD Lactic Acidon 02-06-2023 Lactate [Moles/Vol] 2.5 mmol/L High 0.5-2.2 [facility] Comment on above: Performed By: #### L ACTIC #### [facility] [address] [place] [address] Veterans Service Officer: Debbie Molina MD Interpretation and review of laboratory results Abnormal [facility] Lactate (BldV) [Moles/Vol] 2.5 mmol/L High 0.5 - 2.2 mmol/L [facility] Magnesiumon 02-06-2023 Magnesium [Mass/Vol] 2.0 mg/dL Normal 1.6-2.6 [facility] Comment on above: Performed By: #### M G, CP, CDP #### [facility] [address] [place] [address] Veterans Service Officer: Debbie Molina MD Magnesium [Mass/Vol] 2.0 mg/dL 1.6 - 2 .6 mg/dL [facility] No Panel Informationon 02-06 [facility] [address] HEAD WO CONon 09-24-2022 CT HEAD [...] NAHUN SAMUELS Date: 2022-09-23 23:01 Normal [facility] ER URINE PROFILEon 3 Bilirubin Ql (U) Negative Normal NEGATIVE [facility] Comment on above: Performed By: #### C MP, HSTROPN #### [facility] [address] [address] [address] Jovanni Maya Clarity (U) CLEAR Normal CLEAR [facility] Comment on above: Performed By: #### C MP, HSTROPN #### [facility] [address] [address] [address] Jovanni Maya Color (U) YELLOW Normal YELLOW [facility] Comment on above: Performed By: #### C MP, HSTROPN #### [facility] [address] [address] [address] Jovanni ANTOINE A micrscopic examina tion will be performed if indicated. Normal [facility] Comment on above: Performed By: #### C MP, HSTROPN #### [facility] [address] [address] [address] Jovanni Maya Glucose Ql (U) Negative Normal NEGATIVE [facility] Comment on above: Performed By: #### C MP, HSTROPN #### [facility] [address] [address] [address] Jovanni Maya Hemoglobin Ql (U) Negative Normal NEGATIVE [facility] Comment on above: Performed By: #### C MP, HSTROPN #### [facility] [address] [address] [address] Jovanni Maya Ketones Ql (U) 40 mg/dl Abnormal NEGATIVE [facility] Comment on above: Performed By: #### C MP, HSTROPN #### [facility] [address] [address] [address] Jovanni Maya LEUKOCYTES Negative Normal NEGATIVE [facility] Comment on above: Performed By: #### C MP, HSTROPN #### [facility] [address] [address] [address] Jovanni Maya Nitrite Ql (U) Negative Normal NEGATIVE [facility] Comment on above: Performed By: #### C MP, HSTROPN #### [facility] [address] [address] [address] Jovanni Maya pH (U) 7.0 [pH] Normal 5-9 [facility] Comment on above: Performed By: #### C MP, HSTROPN #### [facility] [address] [address] [address] Jovanni Maya SPEC GRAVITY 1.015 Normal 1.005-<=1. 025 [facility] Comment on above: Performed By: #### C MP, HSTROPN #### [facility] [address] [address] [address] Jovanni Maya UA PROTEIN Negative Normal NEGATIVE/ TRACE [facility] Comment on above: Performed By: #### C MP, HSTROPN #### [facility] [address] [place] [address] Dr. Jovanni Maya UR MICRO IND NOT INDICATED Normal [facility] Comment on above: Performed By: #### C MP, HSTROPN #### [facility] [address] [address] [address] Jovanni Maya Urobilinogen Qn (U) 0.2 {Carlos A'U}/dL Normal 0.2 - 1. 0 [facility] Comment on above: Performed By: #### C MP, HSTROPN #### [facility] [address] [address] [address] Jovanni Maya LACTATE/LACTIC ACIDon 2022 Lactate [Moles/Vol] 0.6 mmol/L Normal 0.4-2.0 [facility] Comment on above: Performed By: #### P REG, ACETON #### [facility] [address] [place] [address] Dr. Jovanni Maya POINT OF CARE GLUCOSEon 08-27 Glucose [Mass/Vol] 123 mg/dL Critically high 74-106 [facility] Comment on above: Performed By: #### P OCGLUC #### [facility] [address] [place] [address] Dr. Jovanni Maya XR CHEST 1 Von [...] DEBBIE BRITT Date: 2022-09-23 22:21 Normal [facility] ACETONE SERUMon 09-23-2022 ACETONE Negative Normal NEGATIVE [facility] Comment on above: Performed By: #### P REG, ACETON #### [facility] [address] [place] [address] Dr. Jovanni Maya CBC AUTO DIFFon 09-23-2022 BASO # 0.0 103/ul Normal 0.0-0.1 [facility] Comment on above: Performed By: #### C BC #### [facility] [address] [place] [address] Dr. Jovanni Maya Basophils/100 WBC (Bld) 0.3 % Normal 0.2-2.0 [facility] Comment on above: Performed By: #### C BC #### [facility] [address] [place] [address] Dr. Jovanni Maya EO # 0.0 103/ul Normal 0.0-0.7 [facility] Comment on above: Performed By: #### C BC #### [facility] [address] [place] [address] Dr. Jovanni Maya Eosinophils/100 WBC (Bld) 0.1 % Critically low 0.9-7.0 [facility] Comment on above: Performed By: #### C BC #### [facility] [address] [place] [address] Dr. Jovanni Maya Erythrocyte distribution width (RBC) [Ratio] 12.4 % Normal 11.0-15.0 [facility] Comment on above: Performed By: #### C BC #### [facility] [address] [place] [address] Dr. Jovanni Maya Hematocrit (Bld) [Volume fraction] 39.6 % Normal 36.0-48.0 [facility] Comment on above: Performed By: #### C BC #### [facility] [address] [place] [address] Dr. Jovanni Maya Hemoglobin (Bld) [Mass/Vol] 13.7 g/dL Normal 12.0-16.0 [facility] Comment on above: Performed By: #### C BC #### [facility] [address] [place] [address] Dr. Jovanni Maya IG # 0.02 10e3/ul Normal 0.00-0.03 [facility] Comment on above: Performed By: #### C BC #### [facility] [address] [place] [address] Dr. Jovanni Maya IG % 0.2 % Normal 0.0-0.5 [facility] Comment on above: Performed By: #### C BC #### [facility] [address] [place] [address] Dr. Jovanni Maya LYMPH # 2.2 103/ul Normal 1.2-3.8 [facility] Comment on above: Performed By: #### C BC #### [facility] [address] [place] [address] Dr. Jovanni Maya Lymphocytes/100 WBC (Bld) 24.8 % Normal 20.5-60.0 [facility] Comment on above: Performed By: #### C BC #### [facility] [address] [place] [address] Dr. Jovanni Maya MANUAL DIFF REQ NO Normal [facility] Comment on above: Performed By: #### C BC #### [facility] [address] [place] [address] Dr. Jovanni Maya MCH (RBC) [Entitic mass] 29.7 pg Normal 26.7-34.0 [facility] Comment on above: Performed By: #### C BC #### [facility] [address] [place] [address] Dr. Jovanni Maya MCHC (RBC) [Mass/Vol] 34.6 g/dL Normal 29.9-35.2 [facility] Comment on above: Performed By: #### C BC #### [facility] [address] [address] [address] Jovanni Maya MCV (RBC) [Entitic vol] 85.7 fL Normal 81.0-99.0 [facility] Comment on above: Performed By: #### C BC #### [facility] [address] [address] [address] Jovanni Maya MONO # 0.7 103/ul Normal 0.3-0.8 [facility] Comment on above: Performed By: #### C BC #### [facility] [address] [address] [address] Jovanni Maya Monocytes/100 WBC (Bld) 7.6 % Normal 1.7-12.0 [facility] Comment on above: Performed By: #### C BC #### [facility] [address] [place] [address] Dr. Jovanni Maya NEUT # 5.9 103/ul Normal 1.4-6.5 [facility] Comment on above: Performed By: #### C BC #### [facility] [address] [place] [address] Dr. Jovanni Maya Neutrophils/100 WBC (Bld) 67.0 % Normal 43.0-75.0 [facility] Comment on above: Performed By: #### C BC #### [facility] [address] [address] [address] Jovanni Maya Platelet mean volume (Bld) [Entitic vol] 9.3 fL Critically low 9.5-13.5 [facility] Comment on above: Performed By: #### C BC #### [facility] [address] [address] [address] Jovanni Maya PLT 259 103/ul Normal 150-450 [facility] Comment on above: Performed By: #### C BC #### [facility] [address] [address] [address] Jovanni Maya RBC 4.62 106/ul Normal 4.20-5.40 [facility] Comment on above: Performed By: #### C BC #### [facility] [address] [place] [address] Dr. Jovanni Maya WBC 8.8 103/ul Normal 4.0-11.0 [facility] Comment on above: Performed By: #### C BC #### [facility] [address] [place] [address] Dr. Jovanni Maya D-DIMERon 09-23-2022 D-DIMER 0.19 mg/L FEU Normal <=0.59 The [facility] Comment on above: Performed By: #### C MP, HSTROPN #### [facility] [address] [place] [address] Dr. Jovanni Maya D-DIMER COMMENTS SEE BELOW Normal [facility] Comment on above: Result Comment: Incr eases [...] Performed By: #### C DANIEL, HSTROPN #### [facility] [address] [place] [address] Dr. Jovanni Maya GROUP A STREP CULTUREon 08-27 S. pyogenes Ag Ql (Unsp spec) Culture Observations: NEGATIVE FOR GROUP A STREPTOCOCCUS. Normal [facility] Comment on above: Performed By: #### C MP, HSTROPN #### [facility] [address] [place] [address] Dr. Jovanni Maya INFLUENZA A AND B AGon 09-23 INFLUENZA A AG Negative Normal NEGATIVE SEE COMMENT [facility] Comment on above: Performed By: #### I NFLUAB #### [facility] [address] [place] [address] Dr. Jovanni Maya INFLUENZA B AG Negative Normal NEGATIVE SEE COMMENT [facility] Comment on above: Performed By: #### I NFLUAB #### [facility] [address] [place] [address] Dr. Jovanni Maya LACTATE/LACTIC ACIDon 2022 Lactate [Moles/Vol] 3.2 mmol/L Critically high 0.4-2.0 [facility] Comment on above: Performed By: #### L ACT #### [facility] [address] [place] [address] Dr. Jovanni Maya PREG HCG QUALon 09-23-2022 , QUAL Negative Normal NEGATIVE [facility] Comment on above: Performed By: #### P REG, ACETON #### [facility] [address] [place] [address] Dr. Jovanni Maya PROF 14(COMP METB)on 023 Albumin [Mass/Vol] 4.6 g/dL Normal 3.4-5.0 [facility] Comment on above: Performed By: #### C MP, HSTROPN #### [facility] [address] [place] [address] Dr. Jovanni Maya Albumin/Globulin [Mass ratio] 1.5 {ratio} Normal [facility] Comment on above: Performed By: #### C MP, HSTROPN #### [facility] [address] [place] [address] Dr. Jovanni Maya ALP [Catalytic activity/Vol] 59 U/L Normal 46-116 [facility] Comment on above: Performed By: #### C MP, HSTROPN #### [facility] [address] [place] [address] Dr. Jovanni Maya ALT [Catalytic activity/Vol] 11 U/L Critically low 14-59 [facility] Comment on above: Performed By: #### C MP, HSTROPN #### [facility] [address] [place] [address] Dr. Jovanni Maya Anion gap [Moles/Vol] 15.3 mmol/L Normal [facility] Comment on above: Performed By: #### C MP, HSTROPN #### [facility] [address] [place] [address] Dr. Jovanni Maya AST [Catalytic activity/Vol] 10 U/L Critically low 15-37 [facility] Comment on above: Performed By: #### C DANIEL, HSTROPN #### [facility] [address] [address] [address] Jovanni Maya Bilirubin [Mass/Vol] 0.8 mg/dL Normal 0.2-1.0 [facility] Comment on above: Performed By: #### C DANIEL, HSTROPN #### [facility] [address] [address] [address] Jovanni Maya Calcium [Mass/Vol] 9.2 mg/dL Normal 8.5-10.1 [facility] Comment on above: Performed By: #### C DANIEL, HSTROPN #### [facility] [address] [place] [address] Dr. Jovanni Maya Chloride [Moles/Vol] 105 mmol/L Normal 98-107 [facility] Comment on above: Performed By: #### C DANIEL, HSTROPN #### [facility] [address] [place] [address] Dr. Jovanni Maya CO2 [Moles/Vol] 24.4 mmol/L Normal 21.0-32.0 [facility] Comment on above: Performed By: #### C DANIEL, HSTROPN #### [facility] [address] [place] [address] Dr. Jovanni Maya Creatinine [Mass/Vol] 0.99 mg/dL Normal 0.55-1.02 [facility] Comment on above: Performed By: #### C DANIEL, HSTROPN #### [facility] [address] [place] [address] Dr. Jovanni Maya EGFR-AF [place]IZ[place] >60 Normal >=60 [facility] Comment on above: Performed By: #### C DANIEL, HSTROPN #### [facility] [address] [place] [address] Dr. Jovanni Maya EGFR-NON AF [place] >60 Normal >=60 [facility] Comment on above: Performed By: #### C DANIEL, HSTROPN #### [facility] [address] [address] [address] Jovanni Maya Globulin (S) [Mass/Vol] 3.1 g/dL Normal [facility] Comment on above: Performed By: #### C MP, HSTROPN #### [facility] [address] [address] [address] Jovanni Maya Glucose [Mass/Vol] 113 mg/dL Critically high 74-106 [facility] Comment on above: Performed By: #### C MP, HSTROPN #### [facility] [address] [address] [address] Jovanni Maya Potassium [Moles/Vol] 3.7 mmol/L Normal 3.5-5.1 [facility] Comment on above: Performed By: #### C MP, HSTROPN #### [facility] [address] [address] [address] Jovanni Maya Protein [Mass/Vol] 7.7 g/dL Normal 6.4-8.2 [facility] Comment on above: Performed By: #### C MP, HSTROPN #### [facility] [address] [address] [address] Jovanni Maya Sodium [Moles/Vol] 141 mmol/L Normal 136-145 [facility] Comment on above: Performed By: #### C MP, HSTROPN #### [facility] [address] [address] [address] Jovanni Maya Urea nitrogen [Mass/Vol] 10.0 mg/dL Normal 7.0-18.0 [facility] Comment on above: Performed By: #### C MP, HSTROPN #### [facility] [address] [address] [address] Jovanni Maya Urea nitrogen/Creatinine [Mass ratio] 10.1 mg/mg Normal [facility] Comment on above: Performed By: #### C MP, HSTROPN #### [facility] [address] [address] [address] Jovanni Maya STREPT SCREENon 09-23-2022 STREP SCREEN A Negative Normal NEGATIVE [facility] Comment on above: Performed By: #### C MP, HSTROPN #### [facility] [address] [place], [place] [address] Dr. Jovanni Maya TROPONIN, HIGH SENSITIVITYon 09-23-2022 HSTROP <4.0 Normal 4.0-51.3 [facility] Comment on above: Result Comment: CUT- OFF POINTS HAVE BEEN ESTABLISHED BASED ON THE FOURTH UNIVERSAL DEFINITIONS OF MYOCARDIAL INFARCTION. THE UPPER REFERENCE LIMIT (URL) OF TROPONIN, DEFINED THE 99TH PERCENTILE OF cTnI DISTRIBUTION IN A REFERENCE POPULATION, HAS BEEN CONFIRMED THE DECISION THRESHOLD FOR [place] DIAGNOSIS. Performed By: #### C MP, HSTROPN #### [facility] [address] [address] [address] Jovanni Maya Alanine aminotransferase [En zymatic activity/volume] in Serum or PlasmaOrdered By: Federica Bullimore on 09-13-2022 ALT [Catalytic activity/Vol] 5 U/L 7-52 [facility] Albumin [Mass/volume] in Ser um or Plasma by Bromocresol green (BCG) dye binding methoOrdered By: Federica Bullimore on 09-13-2022 Albumin BCG dye [Mass/Vol] 4.3 g/dL 3.5-5.7 [facility] Alkaline phosphatase [Enzyma tic activity/volume] in Serum or PlasmaOrdered By: Federica Bullimore on 09-13-2022 ALP [Catalytic activity/Vol] 45 U/L 34-104 [facility] Aspartate aminotransferase [ Enzymatic activity/volume] in Serum or PlasmaOrdered By: Federica Bullimore on 09-13-2022 AST [Catalytic activity/Vol] 12 U/L 13-39 [facility] Basophils Auto (Bld) [#/Vol] Ordered By: Federica Bullimore on 09-13-2022 Basophils (Bld) [#/Vol] 0.0 10*3/uL 0.0-0.2 [facility] Basophils/100 WBC Auto (Bld) Ordered By: Federica Bullimore on 09-13-2022 Basophils/100 WBC (Bld) 0.7 % . [facility] Bilirubin.total [Mass/volume ] in Serum or PlasmaOrdered By: Federica Bullimore on 09-13-2022 Bilirubin [Mass/Vol] 0.5 mg/dL 0.3-1.0 [facility] Calcium [Mass/volume] in Ser um or PlasmaOrdered By: Federica Bullimore on 09-13-2022 Calcium [Mass/Vol] 9.1 mg/dL 8.6-10.3 [facility] Carbon dioxide, total [Moles /volume] in Serum or PlasmaOrdered By: Federica Bullimore on 09-13-2022 CO2 [Moles/Vol] 30.0 mmol/L 21.0-31.0 [facility] Chloride [Moles/volume] in S alexis or PlasmaOrdered By: Federica Bullimore on 09-13-2022 Chloride [Moles/Vol] 105 mmol/L 98-107 [facility] Creatinine [Mass/volume] in Serum or PlasmaOrdered By: Federica Bullimore on 09-13-2022 Creatinine [Mass/Vol] 0.91 mg/dL 0.60-1.20 [facility] Eosinophils Auto (Bld) [#/Vo l]Ordered By: [facility] on 09-13-2022 Eosinophils (Bld) [#/Vol] 0.0 10*3/uL 0.0-0.45 [facility] Eosinophils/100 WBC Auto (Bl d)Ordered By: [facility] Bullimore on 09-13-2022 Eosinophils/100 WBC (Bld) 0.5 % . [facility] Erythrocyte distribution wid th Auto (RBC) [Ratio]Ordered By: Federica Bullimninfa on 09-13-2022 Erythrocyte distribution width (RBC) [Ratio] 13.3 % 11.9-15.3 [facility] Globulin Calc (S) [Mass/Vol] Ordered By: [facility] Bullimore on 09-13-2022 Globulin (S) [Mass/Vol] 2.7 g/dL [facility] Glucose [Mass/volume] in Ser um or PlasmaOrdered By: Federica Bullimore on 09-13-2022 Glucose [Mass/Vol] 89 mg/dL 74-109 [facility] Comment on above: ADA recommended refe rence rangeRandom Glucose Reference Range is dependent on time and content of last meal. Glucose of more than 200 mg/dL in a nonstressed, ambulatory subject supports the diagnosis of Diabetes Mellitus. Hematocrit Auto (Bld) [Volum e fraction]Ordered By: Federica Wolfe on 09-13-2022 Hematocrit (Bld) [Volume fraction] 37.5 % 34.0-46.4 [facility] Hemoglobin [Mass/volume] in BloodOrdered By: Federica Wolfe on 09-13-2022 Hemoglobin (Bld) [Mass/Vol] 12.7 g/dL 11.8-15.4 [facility] - Chemistry and C hemistry - challengeOrdered By: Federica Wolfe on 09-13-2022 GFR/1.73 sq M.predicted MDRD (S/P/Bld) [Vol rate/Area] mL/min/{1.73_m2} [facility] Leukocytes [#/volume] correc manjula for nucleated erythrocytes in Blood by Automated counOrdered By: Federica Wolfe on 09-13-2022 WBC corrected for nucl RBC Auto (Bld) [#/Vol] 5.9 10*3/uL 3.8-11.6 [facility] Lymphocytes Auto (Bld) [#/Vo l]Ordered By: Federica Wolfe on 09-13-2022 Lymphocytes (Bld) [#/Vol] 2.1 10*3/uL 1.00-4.8 [facility] Lymphocytes/100 WBC Auto (Bl d)Ordered By: Federica Wolfe on 09-13-2022 Lymphocytes/100 WBC (Bld) 36.0 % . [facility] MCH Auto (RBC) [Entitic mass ]Ordered By: Federica Wolfe on 09-13-2022 MCH (RBC) [Entitic mass] 29.7 pg 24.7-34.3 [facility] MCHC Auto (RBC) [Mass/Vol]Or dered By: Federica Wolfe on 09-13-2022 MCHC (RBC) [Mass/Vol] 33.8 g/dL 32.0-35.0 [facility] MCV Auto (RBC) [Entitic vol] Ordered By: Federica Wolfe on 09-13-2022 MCV (RBC) [Entitic vol] 88.0 fL 80-100 [facility] Monocyte distribution width [Entitic volume] in Blood by AutomatedOrdered By: Federica Bullimore on 09-13-2022 Monocyte distribution width Auto (Bld) [Entitic vol] 17.84 % 0.00-20.00 [facility] Monocytes Auto (Bld) [#/Vol] Ordered By: Federica Bullimore on 09-13-2022 Monocytes (Bld) [#/Vol] 0.4 10*3/uL 0.0-0.8 [facility] Monocytes/100 WBC Auto (Bld) Ordered By: Federica Bullimore on 09-13-2022 Monocytes/100 WBC (Bld) 7.0 % . [facility] Neutrophils Auto (Bld) [#/Vo l]Ordered By: Federica Bullimore on 09-13-2022 Neutrophils (Bld) [#/Vol] 3.3 10*3/uL 1.8-7.7 [facility] Neutrophils/100 WBC Auto (Bl d)Ordered By: Federica Bullimore on 09-13-2022 Neutrophils/100 WBC (Bld) 55.8 % . [facility] No Panel InformationOrdered By: Federica Bullimore on 09-13-2022 Pharmacy Creatinine Clearance (Chem 72.40 [facility] Nucleated erythrocytes [Pres ence] in Blood by Automated countOrdered By: Federica Bullimore on 09-13-2022 Nucleated RBC Auto Ql (Bld) 0.1 /100{WBC} 0-0.5 [facility] Platelet mean volume Auto (B ld) [Entitic vol]Ordered By: Federica Bullimore on 09-13-2022 Platelet mean volume (Bld) [Entitic vol] 8.0 fL 6.3-10.7 [facility] Platelets Auto (Bld) [#/Vol] Ordered By: Federica Bullimore on 09-13-2022 Platelets (Bld) [#/Vol] 245 10*3/uL 150-450 [facility] Potassium [Moles/volume] in Serum or PlasmaOrdered By: Federica Bullimore on 09-13-2022 Potassium [Moles/Vol] 3.7 mmol/L 3.5-5.1 [facility] Protein [Mass/volume] in Ser um or PlasmaOrdered By: Federica Bullimore on 09-13-2022 Protein [Mass/Vol] 7.0 g/dL 6.4-8.9 [facility] RBC Auto (Bld) [#/Vol]Ordere d By: Federica Bullimore on 09-13-2022 RBC (Bld) [#/Vol] 4.27 10*6/uL 3.60-5.00 [facility] Serum or plasma albumin/glob ulin mass ratioOrdered By: Federica Bullimore on 09-13-2022 Albumin/Globulin [Mass ratio] 1.6 {ratio} [facility] Serum or plasma anion gap de terminationOrdered By: Federica Bullimore on 09-13-2022 Anion gap [Moles/Vol] 8.7 mmol/L 6.0-15.0 [facility] Sodium [Moles/volume] in Ser um or PlasmaOrdered By: Federica Bullimore on 09-13-2022 Sodium [Moles/Vol] 140 mmol/L 136-145 [facility] Urea nitrogen [Mass/volume] in Serum or PlasmaOrdered By: Federica Bullimore on 09-13-2022 Urea nitrogen [Mass/Vol] 8 mg/dL 7-25 [facility] WBC Auto (Bld) [#/Vol]Ordere d By: Federica Bullimore on 09-13-2022 WBC (Bld) [#/Vol] 5.9 10*3/uL 3.8-11.6 [facility] Automated erythrocytes count in urine sediment (number/area)Ordered By: Shanelle Bowen on 08-30-2022 RBC Auto (Urine sed) [#/Area] 5-9 [HPF] 0-4 [facility] Automated leukocytes count i n urine sediment (number/area)Ordered By: Shanelle Bowen on 08-30-2022 WBC Auto (Urine sed) [#/Area] 5-9 [HPF] 0-4 [facility] Basophils Auto (Bld) [#/Vol] Ordered By: Shanelle Bowen on 08-30-2022 Basophils (Bld) [#/Vol] 0.0 10*3/uL 0.0-0.2 [facility] Basophils/100 WBC Auto (Bld) Ordered By: Shanelle Bowen on 08-30-2022 Basophils/100 WBC (Bld) 0.5 % . [facility] Bilirubin Test strip Ql (U)O rdered By: Shanelle Bowen on 08-30-2022 Bilirubin Ql (U) Negative Negative [facility] Calcium [Mass/volume] in Ser um or PlasmaOrdered By: Shanelle Bowen on 08-30-2022 Calcium [Mass/Vol] 9.4 mg/dL 8.2-10.2 [facility] Carbon dioxide, total [Moles /volume] in Serum or PlasmaOrdered By: Shanelle Bowen on 08-30-2022 CO2 [Moles/Vol] 21.7 mmol/L 22.0-30.0 [facility] Chloride [Moles/volume] in S alexis or PlasmaOrdered By: Shanelle Bowen on 08-30-2022 Chloride [Moles/Vol] 102 mmol/L 95-114 [facility] Color Auto (U)Ordered By: Brian Bowen on 08-30-2022 Color (U) Yellow Yellow [facility] Creatinine and Glomerular fi ltration rate.predicted panel (S/P/Bld)Ordered By: Shanelle Bowen on 08-30-2022 Creatinine [Mass/Vol] 0.99 mg/dL 0.44-1.03 [facility] Eosinophils Auto (Bld) [#/Vo l]Ordered By: Shanelle Bowen on 08-30-2022 Eosinophils (Bld) [#/Vol] 0.1 10*3/uL 0.0-0.45 [facility] Eosinophils/100 WBC Auto (Bl d)Ordered By: Shanelle Bowen on 08-30-2022 Eosinophils/100 WBC (Bld) 1.2 % . [facility] Erythrocyte distribution wid th Auto (RBC) [Ratio]Ordered By: Shanelle Bowen on 08-30-2022 Erythrocyte distribution width (RBC) [Ratio] 13.9 % 11.9-15.3 [facility] Estimated glomerular filtrat ion rate (GFR) non- AmericanOrdered By: Shanelle Bowen on 08-30-2022 GFR/1.73 sq M.predicted among non-blacks MDRD (S/P/Bld) [Vol rate/Area] > 60 mL/Min [facility] Glucose [Mass/volume] in Ser um or PlasmaOrdered By: Shanelle Bowen on 08-30-2022 Glucose [Mass/Vol] 101 mg/dL 70-100 [facility] Comment on above: ADA recommended refe rence rangeRandom Glucose Reference Range is dependent on time and content of last meal. Glucose of more than 200 mg/dL in a nonstressed, ambulatory subject supports the diagnosis of Diabetes Mellitus. Hematocrit Auto (Bld) [Volum e fraction]Ordered By: Shanelle Bowen on 08-30-2022 Hematocrit (Bld) [Volume fraction] 43.8 % 34.0-46.4 [facility] Hemoglobin [Mass/volume] in BloodOrdered By: Shanelle Bowen on 08-30-2022 Hemoglobin (Bld) [Mass/Vol] 14.6 g/dL 11.8-15.4 [facility] Ketones Auto test strip (U) [Mass/Vol]Ordered By: Shanelle Bowen on 08-30-2022 Ketones (U) [Mass/Vol] Trace Negative [facility] - Chemistry and C hemistry - challengeOrdered By: Shanelle Bowen on 08-30-2022 Magnesium [Mass/Vol] 2.2 mg/dL 1.6-2.6 [facility] - UrinalysisOrder ed By: Shanelle Bowen on 08-30-2022 Hyaline casts LM Ql (Urine sed) 0-8 [LPF] 0-8 [facility] Leukocytes [#/volume] correc manjula for nucleated erythrocytes in Blood by Automated counOrdered By: Shanelle Bwoen on 08-30-2022 WBC corrected for nucl RBC Auto (Bld) [#/Vol] 10.5 10*3/uL 3.8-11.6 [facility] Lymphocytes Auto (Bld) [#/Vo l]Ordered By: Shanelle Bowen on 08-30-2022 Lymphocytes (Bld) [#/Vol] 3.9 10*3/uL 1.00-4.8 [facility] Lymphocytes/100 WBC Auto (Bl d)Ordered By: Shanelle Bowen on 08-30-2022 Lymphocytes/100 WBC (Bld) 36.9 % . [facility] MCH Auto (RBC) [Entitic mass ]Ordered By: Shanelle Bowen on 08-30-2022 MCH (RBC) [Entitic mass] 29.5 pg 24.7-34.3 [facility] MCHC Auto (RBC) [Mass/Vol]Or dered By: Shanelle Bowen on 08-30-2022 MCHC (RBC) [Mass/Vol] 33.3 g/dL 32.0-35.0 [facility] MCV Auto (RBC) [Entitic vol] Ordered By: Shanelle Bowen on 08-30-2022 MCV (RBC) [Entitic vol] 88.7 fL 80-100 [facility] Monocyte distribution width [Entitic volume] in Blood by AutomatedOrdered By: Shanelle Bowen on 08-30-2022 Monocyte distribution width Auto (Bld) [Entitic vol] 19.23 % 0.00-20.00 [facility] Monocytes Auto (Bld) [#/Vol] Ordered By: Shanelle Bowen on 08-30-2022 Monocytes (Bld) [#/Vol] 0.6 10*3/uL 0.0-0.8 [facility] Monocytes/100 WBC Auto (Bld) Ordered By: Shanelle Bowen on 08-30-2022 Monocytes/100 WBC (Bld) 5.6 % . [facility] Neutrophils Auto (Bld) [#/Vo l]Ordered By: Shanelle Bowen on 08-30-2022 Neutrophils (Bld) [#/Vol] 5.9 10*3/uL 1.8-7.7 [facility] Neutrophils/100 WBC Auto (Bl d)Ordered By: Shanelle Bowen on 08-30-2022 Neutrophils/100 WBC (Bld) 55.8 % . [facility] Nitrite Test strip Ql (U)Ord ered By: Shanelle Bowen on 08-30-2022 Nitrite Ql (U) Negative Negative [facility] No Panel InformationOrdered By: Shanelle Bowen on 08-30-2022 Lamotrigine (Lamictal) Level 4.2 ug/mL 2.0-20.0 [facility] Comment on above: Detection Limit = 1. 0Performed at: [facility] - [facility] [address] [id number] Director: Sina Hills MD, Phone: [phone] Levetiracetam (Keppra) Level 41.6 ug/mL 10.0-40.0 [facility] Comment on above: Performed at: [facility] [address] [id number] Director: Sina Hills MD, Phone: [phone] Estimated GFR () > 60 mL/Min [facility] Comment on above: GFR estimated refere nce range: According to KDOQI guidelines, <60 ml/min/1.73m2 is sufficient to diagnose a patient with chronic kidney disease. Pharmacy Creatinine Clearance (Chem 67.83 [facility] Nucleated erythrocytes [Pres ence] in Blood by Automated countOrdered By: Shanelle Bowen on 08-30-2022 Nucleated RBC Auto Ql (Bld) 0.1 /100{WBC} 0-0.5 [facility] Platelet mean volume Auto (B ld) [Entitic vol]Ordered By: Shanelle Bowen on 08-30-2022 Platelet mean volume (Bld) [Entitic vol] 8.4 fL 6.3-10.7 [facility] Platelets Auto (Bld) [#/Vol] Ordered By: Shanelle Bowen on 08-30-2022 Platelets (Bld) [#/Vol] 288 10*3/uL 150-450 [facility] [place] Potassium [Moles/volume] in Serum or PlasmaOrdered By: Shanelle Bowen on 08-30-2022 Potassium [Moles/Vol] 3.4 mmol/L 3.5-5.1 [facility] Protein Auto test strip (U) [Mass/Vol]Ordered By: Shanelle Bowen on 08-30-2022 Protein (U) [Mass/Vol] Trace mg/dL Negative [facility] RBC Auto (Bld) [#/Vol]Ordere d By: Shanelle Bowen on 08-30-2022 RBC (Bld) [#/Vol] 4.94 10*6/uL 3.60-5.00 [facility] Serum or plasma anion gap de terminationOrdered By: Shanelle Bowen on 08-30-2022 Anion gap [Moles/Vol] 17.7 mmol/L 6.0-15.0 [facility] Sodium [Moles/volume] in Ser um or PlasmaOrdered By: Shanelle Bowen on 08-30-2022 Sodium [Moles/Vol] 138 mmol/L 136-146 [facility] Specific gravity Auto test s trip (U) [Rel density]Ordered By: Shanelle Bowen on 08-30-2022 Specific gravity (U) [Rel density] 1.016 1.001-1.03 0 [facility] [place] Squamous epithelial cells de tection in urine sediment by light microscopyOrdered By: Shanelle Bowen on 08-30-2022 Epithelial cells.squamous LM Ql (Urine sed) 1-2 [HPF] 0-2 [facility] [place] Urea nitrogen [Mass/volume] in Serum or PlasmaOrdered By: Shanelle Bowen on 08-30-2022 Urea nitrogen [Mass/Vol] 5 mg/dL 9-23 [facility] [place] Urine bacteria detection by automated methodOrdered By: Shanelle Bowen on 08-30-2022 Bacteria Auto Ql (U) None seen None Seen [facility] Urine clarity by refractomet ry automatedOrdered By: Shanelle Bowen on 08-30-2022 Clarity Refractometry automated (U) Clear Clear [facility] [place] Urine culture routineOrdered By: Shanelle Bowen on 08-30-2022 Bacteria identified Cx Nom (U) 2 Days [facility] [place] Urine glucose measurement by automated test strip (mass/volume)Ordered By: Shanelle Bowen on 08-30-2022 Glucose Auto test strip (U) [Mass/Vol] Normal mg/dL Normal [facility] [place] Urine hemoglobin detection b y automated test stripOrdered By: Shanelle Bowen on 08-30-2022 Hemoglobin Auto test strip Ql (U) 3+ Negative [facility] [place] Urine leukocyte esterase det ection by automated test stripOrdered By: Shanelle Bowen on 08-30-2022 Leukocyte esterase Auto test strip Ql (U) 1+ Negative [facility] [place] Urobilinogen Auto test strip (U) [Mass/Vol]Ordered By: Shanelle Bowen on 08-30-2022 Urobilinogen (U) [Mass/Vol] Normal mg/dL Normal [facility] [place] WBC Auto (Bld) [#/Vol]Ordere d By: Shanelle Bowen on 08-30-2022 WBC (Bld) [#/Vol] 10.5 10*3/uL 3.8-11.6 [facility] pH Auto test strip (U)Ordere d By: Shanelle Bowen on 08-30-2022 pH (U) 6.5 [pH] 5.0-9.0 [facility] [place] Albumin [Mass/volume] in Ser um or PlasmaOrdered By: Roberto Whittaker on 08-18-2022 Albumin [Mass/Vol] 4.6 g/dL 3.2-5.5 [facility] Alkaline phosphatase [Enzyma tic activity/volume] in Serum or PlasmaOrdered By: Roberto Whittaker on 08-18-2022 ALP [Catalytic activity/Vol] 50 U/L 32-92 [facility] [place] Aspartate aminotransferase [ Enzymatic activity/volume] in Serum or PlasmaOrdered By: Roberto Whittaker on 08-18-2022 AST [Catalytic activity/Vol] 19 U/L 10-42 [facility] [place] Basophils Auto (Bld) [#/Vol] Ordered By: Roberto Whittaker on 08-18-2022 Basophils (Bld) [#/Vol] 0.0 10*3/uL 0.0-0.2 [facility] [place] Basophils/100 WBC Auto (Bld) Ordered By: Roberto Whittaker on 08-18-2022 Basophils/100 WBC (Bld) 0.5 % . [facility] [place] Calcium [Mass/volume] in Ser um or PlasmaOrdered By: Roberto Whittaker on 08-18-2022 Calcium [Mass/Vol] 9.4 mg/dL 8.2-10.2 [facility] Carbon dioxide, total [Moles /volume] in Serum or PlasmaOrdered By: Roberto Whittaker on 08-18-2022 CO2 [Moles/Vol] 26.7 mmol/L 22.0-30.0 [facility] Creatinine and Glomerular fi ltration rate.predicted panel (S/P/Bld)Ordered By: Roberto Whittaker on 08-18-2022 Creatinine [Mass/Vol] 0.87 mg/dL 0.44-1.03 [facility] Eosinophils Auto (Bld) [#/Vo l]Ordered By: Roberto Whittaker on 08-18-2022 Eosinophils (Bld) [#/Vol] 0.0 10*3/uL 0.0-0.45 [facility] [place] Eosinophils/100 WBC Auto (Bl d)Ordered By: Roberto Whittaker on 08-18-2022 Eosinophils/100 WBC (Bld) 0.5 % . [facility] [place] Erythrocyte distribution wid th Auto (RBC) [Ratio]Ordered By: Roberto Whittaker on 08-18-2022 Erythrocyte distribution width (RBC) [Ratio] 13.7 % 11.9-15.3 [facility] [place] Estimated glomerular filtrat ion rate (GFR) non- AmericanOrdered By: Roberto Whittaker on 08-18-2022 GFR/1.73 sq M.predicted among non-blacks MDRD (S/P/Bld) [Vol rate/Area] > 60 mL/Min [facility] [place] Globulin Calc (S) [Mass/Vol] Ordered By: Roberto Whittaker 08-18-2022 Globulin (S) [Mass/Vol] 2.7 g/dL [facility] [place] Hematocrit Auto (Bld) [Volum e fraction]Ordered By: Roberto Whittaker on 08-18-2022 Hematocrit (Bld) [Volume fraction] 39.6 % 34.0-46.4 [facility] [place] Hemoglobin [Mass/volume] in BloodOrdered By: Roberto Whittaker 08-18-2022 Hemoglobin (Bld) [Mass/Vol] 13.3 g/dL 11.8-15.4 [facility] [place] Laboratory - Chemistry and C hemistry - challengeOrdered By: Roberto Whittaker 08-18-2022 Magnesium [Mass/Vol] 2.1 mg/dL 1.6-2.6 [facility] Leukocytes [#/volume] correc manjula for nucleated erythrocytes in Blood by Automated counOrdered By: Roberto Whittaker on 08-18-2022 WBC corrected for nucl RBC Auto (Bld) [#/Vol] 6.9 10*3/uL 3.8-11.6 [facility] [place] Lymphocytes Auto (Bld) [#/Vo l]Ordered By: Roberto Whittaker on 08-18-2022 Lymphocytes (Bld) [#/Vol] 2.2 10*3/uL 1.00-4.8 [facility] [place] Lymphocytes/100 WBC Auto (Bl d)Ordered By: Roberto Whittaker on 08-18-2022 Lymphocytes/100 WBC (Bld) 31.2 % . [facility] [place] MCH Auto (RBC) [Entitic mass ]Ordered By: Roberto Whittaker on 08-18-2022 MCH (RBC) [Entitic mass] 29.3 pg 24.7-34.3 [facility] [place] MCHC Auto (RBC) [Mass/Vol]Or dered By: Roberto Whittaker on 08-18-2022 MCHC (RBC) [Mass/Vol] 33.5 g/dL 32.0-35.0 [facility] MCV Auto (RBC) [Entitic vol] Ordered By: Roberto Whittaker on 08-18-2022 MCV (RBC) [Entitic vol] 87.5 fL 80-100 [facility] [place] Monocyte distribution width [Entitic volume] in Blood by AutomatedOrdered By: Roberto Whittaker on 08-18-2022 Monocyte distribution width Auto (Bld) [Entitic vol] 17.66 % 0.00-20.00 [facility] [place] Monocytes Auto (Bld) [#/Vol] Ordered By: Roberto Whittaker on 08-18-2022 Monocytes (Bld) [#/Vol] 0.5 10*3/uL 0.0-0.8 [facility] [place] Monocytes/100 WBC Auto (Bld) Ordered By: Roberto Whittaker on 08-18-2022 Monocytes/100 WBC (Bld) 7.4 % . [facility] [place] Neutrophils Auto (Bld) [#/Vo l]Ordered By: Roberto Whittaker on 08-18-2022 Neutrophils (Bld) [#/Vol] 4.2 10*3/uL 1.8-7.7 [facility] [place] Neutrophils/100 WBC Auto (Bl d)Ordered By: Roberto Whittaker on 08-18-2022 Neutrophils/100 WBC (Bld) 60.4 % . [facility] [place] No Panel InformationOrdered By: Roberto Whittaker on 08-18-2022 Levetiracetam (Keppra) Level 98.1 ug/mL 10.0-40.0 [facility] [place] Comment on above: Performed at: [address] [id number] Director: Sina Hills MD, Phone: [phone] Estimated GFR () > 60 mL/Min [facility] [place] Comment on above: GFR estimated refere nce range: According to KDOQI guidelines, <60 ml/min/1.73m2 is sufficient to diagnose a patient with chronic kidney disease. Pharmacy Creatinine Clearance (Chem 75.25 [facility] [place] Nucleated erythrocytes [Pres ence] in Blood by Automated countOrdered By: Roberto Whittaker on 08-18-2022 Nucleated RBC Auto Ql (Bld) 0.1 /100{WBC} 0-0.5 [facility] [place] Platelet mean volume Auto (B ld) [Entitic vol]Ordered By: Roberto Whittaker on 08-18-2022 Platelet mean volume (Bld) [Entitic vol] 7.8 fL 6.3-10.7 [facility] [place] Platelets Auto (Bld) [#/Vol] Ordered By: Roberto Whittaker on 08-18-2022 Platelets (Bld) [#/Vol] 237 10*3/uL 150-450 [facility] [place] Prolactin [Mass/volume] in S alexis or PlasmaOrdered By: Roberto Whittaker on 08-18-2022 Prolactin [Mass/Vol] 22.52 ng/mL 3.34-26.72 [facility] Protein [Mass/volume] in Ser um or PlasmaOrdered By: Roberto Whittaker on 08-18-2022 Protein [Mass/Vol] 7.3 g/dL 6.1-7.9 [facility] RBC Auto (Bld) [#/Vol]Ordere d By: Roberto Whittaker on 08-18-2022 RBC (Bld) [#/Vol] 4.53 10*6/uL 3.60-5.00 [facility] Serum or plasma alanine white otransferase measurement without P-5'-P (enzymatic activiOrdered By: Roberto Whittaker on 08-18-2022 ALT No additional P-5'-P [Catalytic activity/Vol] 10 U/L 10-60 [facility] [place] Serum or plasma albumin/glob ulin mass ratioOrdered By: Roberto Whittaker on 08-18-2022 Albumin/Globulin [Mass ratio] 1.7 {ratio} [facility] [place] Serum or plasma anion gap de terminationOrdered By: Roberto Whittaker on 08-18-2022 Anion gap [Moles/Vol] 11.9 mmol/L 6.0-15.0 [facility] Serum or plasma chloride melonie surement (moles/volume)Ordered By: Roberto Whittaker on 08-18-2022 Chloride [Moles/Vol] 103 mmol/L 95-114 [facility] Serum or plasma glucose randi urement (mass/volume)Ordered By: Roberto Whittaker on 08-18-2022 Glucose [Mass/Vol] 83 mg/dL 70-100 [facility] Comment on above: ADA recommended refe rence rangeRandom Glucose Reference Range is dependent on time and content of last meal. Glucose of more than 200 mg/dL in a nonstressed, ambulatory subject supports the diagnosis of Diabetes Mellitus. Serum or plasma potassium me asurement (moles/volume)Ordered By: Roberto Whittaker on 08-18-2022 Potassium [Moles/Vol] 3.6 mmol/L 3.5-5.1 [facility] Serum or plasma sodium measu rement (moles/volume)Ordered By: Roberto Whittaker on 08-18-2022 Sodium [Moles/Vol] 138 mmol/L 136-146 [facility] Serum or plasma total biliru bin measurement (mass/volume)Ordered By: Roberto Whittaker on 08-18-2022 Bilirubin [Mass/Vol] 0.8 mg/dL 0.3-1.2 [facility] Urea nitrogen [Mass/volume] in Serum or PlasmaOrdered By: Roberto Whittaker on 08-18-2022 Urea nitrogen [Mass/Vol] 10 mg/dL 03-19 [facility] [place] WBC Auto (Bld) [#/Vol]Ordere d By: Roberto Whittaker on 08-18-2022 WBC (Bld) [#/Vol] 6.9 10*3/uL 3.8-11.6 [facility] Amphetamine Screen Ql (U)Ord ered By: Attila Nelson on 07-27-2022 Amphetamines Ql (U) Negative Negative [facility] Automated erythrocytes count in urine sediment (number/area)Ordered By: Attila Nelson on 07-27-2022 RBC Auto (Urine sed) [#/Area] 50-100 [HPF] 0-4 [facility] [place] Automated leukocytes count i n urine sediment (number/area)Ordered By: Attila Nelson on 07-27-2022 WBC Auto (Urine sed) [#/Area] 3-4 [HPF] 0-4 [facility] [place] Barbiturates [Presence] in U rineOrdered By: Attila Nelson on 07-27-2022 Barbiturates Ql (U) Negative Negative [facility] Basophils Auto (Bld) [#/Vol] Ordered By: Attila Nelson on 07-27-2022 Basophils (Bld) [#/Vol] 0.0 10*3/uL 0.0-0.2 [facility] [place] Basophils/100 WBC Auto (Bld) Ordered By: Attila Nelson on 07-27-2022 Basophils/100 WBC (Bld) 0.4 % . [facility] [place] Benzodiazepines [Presence] i n UrineOrdered By: Attila Nelson on 07-27-2022 Benzodiazepines Ql (U) Negative Negative [facility] Bilirubin Test strip Ql (U)O rdered By: Attila Nelson on 07-27-2022 Bilirubin Ql (U) Negative Negative [facility] Body fluid albumin measureme nt (mass/volume)Ordered By: Attila Nelson on 07-27-2022 Albumin (Body fld) [Mass/Vol] 4.5 g/dL 3.2-5.5 [facility] [place] Cannabinoids [Presence] in U rine by Screen methodOrdered By: Attila Nelson on 07-27-2022 Cannabinoids Screen Ql (U) Positive Negative [facility] [place] Comment on above: These are unconfirme d results and should not be used for legal purposes. Drug Cut-Off Concentration: AMPH 1000 ng/mL ELMER 200 ng/mL BRICE 200 ng/mL COCM 300 ng/mL OP 300 ng/mL PCP 25 ng/mL THC 20 ng/mL Color Auto (U)Ordered By: Czear Nelson on 07-27-2022 Color (U) Yellow Yellow [facility] [place] Creatinine and Glomerular fi ltration rate.predicted panel (S/P/Bld)Ordered By: Attila Nelson on 07-27-2022 Creatinine [Mass/Vol] 0.78 mg/dL 0.44-1.03 [facility] Eosinophils Auto (Bld) [#/Vo l]Ordered By: Attila Nelson on 07-27-2022 Eosinophils (Bld) [#/Vol] 0.0 10*3/uL 0.0-0.45 [facility] [place] Eosinophils/100 WBC Auto (Bl d)Ordered By: Attila Nelson on 07-27-2022 Eosinophils/100 WBC (Bld) 0.5 % . [facility] [place] Erythrocyte distribution wid th Auto (RBC) [Ratio]Ordered By: Attila Nelson on 07-27-2022 Erythrocyte distribution width (RBC) [Ratio] 13.7 % 11.9-15.3 [facility] [place] Estimated glomerular filtrat ion rate (GFR) non- AmericanOrdered By: Attila Nelson on 07-27-2022 GFR/1.73 sq M.predicted among non-blacks MDRD (S/P/Bld) [Vol rate/Area] > 60 mL/Min [facility] [place] Globulin Calc (S) [Mass/Vol] Ordered By: Attila Nelson on 07-27-2022 Globulin (S) [Mass/Vol] 3.1 g/dL [facility] [place] HCG ( test) IA.rapi d Ql (U)Ordered By: Attila Nelson on 07-27-2022 HCG ( test) Ql (U) Negative [facility] [place] Hematocrit Auto (Bld) [Volum e fraction]Ordered By: Attila Nelson on 07-27-2022 Hematocrit (Bld) [Volume fraction] 40.5 % 34.0-46.4 [facility] [place] Hemoglobin [Mass/volume] in BloodOrdered By: Attila Nelson on 07-27-2022 Hemoglobin (Bld) [Mass/Vol] 13.7 g/dL 11.8-15.4 [facility] [place] Ketones Auto test strip (U) [Mass/Vol]Ordered By: Attila Nelson on 07-27-2022 Ketones (U) [Mass/Vol] Negative Negative [facility] - Drug toxicology Ordered By: Attila eNlson on 07-27-2022 Opiates Ql (U) Negative Negative [facility] [place] [facility] - UrinalysisOrder ed By: Attila Nelson on 07-27-2022 Hyaline casts LM Ql (Urine sed) 0-8 [LPF] 0-8 [facility] [place] Leukocytes [#/volume] correc manjula for nucleated erythrocytes in Blood by Automated counOrdered By: Attila Nelson on 07-27-2022 WBC corrected for nucl RBC Auto (Bld) [#/Vol] 6.8 10*3/uL 3.8-11.6 [facility] [place] Lymphocytes Auto (Bld) [#/Vo l]Ordered By: Attila Nelson on 07-27-2022 Lymphocytes (Bld) [#/Vol] 2.9 10*3/uL 1.00-4.8 [facility] [place] Lymphocytes/100 WBC Auto (Bl d)Ordered By: Attila Nelson on 07-27-2022 Lymphocytes/100 WBC (Bld) 42.2 % . [facility] [place] MCH Auto (RBC) [Entitic mass ]Ordered By: Attila Nelson on 07-27-2022 MCH (RBC) [Entitic mass] 29.6 pg 24.7-34.3 [facility] [place] MCHC Auto (RBC) [Mass/Vol]Or dered By: Attila Neslon on 07-27-2022 MCHC (RBC) [Mass/Vol] 33.8 g/dL 32.0-35.0 [facility] MCV Auto (RBC) [Entitic vol] Ordered By: Attila Nelson on 07-27-2022 MCV (RBC) [Entitic vol] 87.6 fL 80-100 [facility] [place] Monocyte distribution width [Entitic volume] in Blood by AutomatedOrdered By: Attila Nelson on 07-27-2022 Monocyte distribution width Auto (Bld) [Entitic vol] 17.82 % 0.00-20.00 [facility] [place] Monocytes Auto (Bld) [#/Vol] Ordered By: Attila Nelson on 07-27-2022 Monocytes (Bld) [#/Vol] 0.4 10*3/uL 0.0-0.8 [facility] [place] Monocytes/100 WBC Auto (Bld) Ordered By: Attila Nelson on 07-27-2022 Monocytes/100 WBC (Bld) 5.7 % . [facility] [place] Neutrophils Auto (Bld) [#/Vo l]Ordered By: Attila Nelson on 07-27-2022 Neutrophils (Bld) [#/Vol] 3.4 10*3/uL 1.8-7.7 [facility] [place] Neutrophils/100 WBC Auto (Bl d)Ordered By: Attila Nelson on 07-27-2022 Neutrophils/100 WBC (Bld) 51.2 % . [facility] [place] Nitrite Test strip Ql (U)Ord ered By: Attila Nelson on 07-27-2022 Nitrite Ql (U) Negative Negative [facility] [place] No Panel InformationOrdered By: Attila Nelson on 07-27-2022 Estimated GFR () > 60 mL/Min [facility] [place] Comment on above: GFR estimated refere nce range: According to KDOQI guidelines, <60 ml/min/1.73m2 is sufficient to diagnose a patient with chronic kidney disease. Pharmacy Creatinine Clearance (Chem 85.01 [facility] [place] Nucleated erythrocytes [Pres ence] in Blood by Automated countOrdered By: Attila Nelson on 07-27-2022 Nucleated RBC Auto Ql (Bld) 0.2 /100{WBC} 0-0.5 [facility] [place] Phencyclidine Screen Ql (U)O rdered By: Attila Nelson on 07-27-2022 Phencyclidine Ql (U) Negative Negative [facility] Platelet mean volume Auto (B ld) [Entitic vol]Ordered By: Attila Nelson on 07-27-2022 Platelet mean volume (Bld) [Entitic vol] 8.3 fL 6.3-10.7 [facility] [place] Platelets Auto (Bld) [#/Vol] Ordered By: Attila Nelson on 07-27-2022 Platelets (Bld) [#/Vol] 278 10*3/uL 150-450 [facility] [place] Prolactin [Mass/volume] in S alexis or PlasmaOrdered By: Attila Nelson on 07-27-2022 Prolactin [Mass/Vol] 20.59 ng/mL 3.34-26.72 [facility] Protein Auto test strip (U) [Mass/Vol]Ordered By: Attila Nelson on 07-27-2022 Protein (U) [Mass/Vol] Trace mg/dL Negative [facility] Protein [Mass/volume] in Ser um or PlasmaOrdered By: Attila Nelson on 07-27-2022 Protein [Mass/Vol] 7.6 g/dL 6.1-7.9 [facility] RBC Auto (Bld) [#/Vol]Ordere d By: Attila Nelson on 07-27-2022 RBC (Bld) [#/Vol] 4.62 10*6/uL 3.60-5.00 [facility] Serum or plasma alanine white otransferase measurement without P-5'-P (enzymatic activiOrdered By: Attila Nelson on 07-27-2022 ALT No additional P-5'-P [Catalytic activity/Vol] 9 U/L 10-60 [facility] Serum or plasma albumin/glob ulin mass ratioOrdered By: Attila Nelson on 07-27-2022 Albumin/Globulin [Mass ratio] 1.5 {ratio} [facility] Serum or plasma alkaline ignacio sphatase measurement (enzymatic activity/volume)Ordered By: Attila Nelson on 07-27-2022 ALP [Catalytic activity/Vol] 49 U/L 32-92 [facility] Serum or plasma anion gap de terminationOrdered By: Attila Nelson on 07-27-2022 Anion gap [Moles/Vol] 16.6 mmol/L 6.0-15.0 [facility] Serum or plasma aspartate am inotransferase measurement (enzymatic activity/volume)Ordered By: Attila Nelson on 07-27-2022 AST [Catalytic activity/Vol] 20 U/L 10-42 [facility] [place] Serum or plasma calcium randi urement (mass/volume)Ordered By: Attila Nelson on 07-27-2022 Calcium [Mass/Vol] 9.6 mg/dL 8.2-10.2 [facility] Serum or plasma chloride melonie surement (moles/volume)Ordered By: Attila Nelson on 07-27-2022 Chloride [Moles/Vol] 103 mmol/L 95-114 [facility] Serum or plasma glucose randi urement (mass/volume)Ordered By: Attila Nelson on 07-27-2022 Glucose [Mass/Vol] 107 mg/dL 70-100 [facility] Comment on above: ADA recommended refe rence rangeRandom Glucose Reference Range is dependent on time and content of last meal. Glucose of more than 200 mg/dL in a nonstressed, ambulatory subject supports the diagnosis of Diabetes Mellitus. Serum or plasma potassium me asurement (moles/volume)Ordered By: Attila Nelson on 07-27-2022 Potassium [Moles/Vol] 3.8 mmol/L 3.5-5.1 [facility] Serum or plasma sodium measu rement (moles/volume)Ordered By: Attila Nelson on 07-27-2022 Sodium [Moles/Vol] 141 mmol/L 136-146 [facility] Serum or plasma total biliru bin measurement (mass/volume)Ordered By: Attila Nelson on 07-27-2022 Bilirubin [Mass/Vol] 0.5 mg/dL 0.3-1.2 [facility] Serum or plasma total carbon dioxide measurement (moles/volume)Ordered By: Attila Nelson on 07-27-2022 CO2 [Moles/Vol] 25.2 mmol/L 22.0-30.0 [facility] Serum or plasma urea nitroge n measurement (mass/volume)Ordered By: Attila Nelson on 07-27-2022 Urea nitrogen [Mass/Vol] 5 mg/dL 9-23 [facility] Specific gravity Auto test s trip (U) [Rel density]Ordered By: Attila Nelson on 07-27-2022 Specific gravity (U) [Rel density] 1.022 1.001-1.03 0 [facility] Squamous epithelial cells de tection in urine sediment by light microscopyOrdered By: Attila Nelosn on 07-27-2022 Epithelial cells.squamous LM Ql (Urine sed) 1-2 [HPF] 0-2 [facility] Urine bacteria detection by automated methodOrdered By: Attila Nelson on 07-27-2022 Bacteria Auto Ql (U) None seen None Seen [facility] Urine clarity by refractomet ry automatedOrdered By: Attila Nelson on 07-27-2022 Clarity Refractometry automated (U) Cloudy Clear [facility] Urine cocaine detectionOrder ed By: Attila Nelson on 07-27-2022 Cocaine Ql (U) Negative Negative [facility] Urine glucose measurement by automated test strip (mass/volume)Ordered By: Attila Nelson on 07-27-2022 Glucose Auto test strip (U) [Mass/Vol] Normal mg/dL Normal [facility] Urine hemoglobin detection b y automated test stripOrdered By: Attila Nelson on 07-27-2022 Hemoglobin Auto test strip Ql (U) 3+ Negative [facility] Urine leukocyte esterase det ection by automated test stripOrdered By: Attila Nelson on 07-27-2022 Leukocyte esterase Auto test strip Ql (U) 1+ Negative [facility] Urobilinogen Auto test strip (U) [Mass/Vol]Ordered By: Attila Nelson on 07-27-2022 Urobilinogen (U) [Mass/Vol] Normal mg/dL Normal [facility] WBC Auto (Bld) [#/Vol]Ordere d By: Attila Nelson on 07-27-2022 WBC (Bld) [#/Vol] 6.8 10*3/uL 3.8-11.6 [facility] pH Auto test strip (U)Ordere d By: Attila Nelson on 07-27-2022 pH (U) 7.0 [pH] 5.0-9.0 [facility] CBC AUTO DIFFon 06-12-2022 BASO # 0.0 103/ul Normal 0.0-0.1 [facility] Comment on above: Performed By: #### C MP, HSTROPN #### [facility] [address] [place] [address] Dr. Jovanni Maya Basophils/100 WBC (Bld) 0.2 % Normal 0.2-2.0 [facility] Comment on above: Performed By: #### C MP, HSTROPN #### [facility] [address] [place] [address] Dr. Jovanni Maya EO # 0.0 103/ul Normal 0.0-0.7 [facility] Comment on above: Performed By: #### C MP, HSTROPN #### [facility] [address] [place] [address] Dr. Jovanni Maya Eosinophils/100 WBC (Bld) 0.1 % Critically low 0.9-7.0 [facility] Comment on above: Performed By: #### C DANIEL, HSTROPN #### [facility] [address] [place] [address] Dr. Jovanni Maya Erythrocyte distribution width (RBC) [Ratio] 12.7 % Normal 11.0-15.0 [facility] Comment on above: Performed By: #### C DANIEL, HSTROPN #### [facility] [address] [place] [address] Dr. Jovanni Maya Hematocrit (Bld) [Volume fraction] 38.2 % Normal 36.0-48.0 [facility] Comment on above: Performed By: #### C MP, HSTROPN #### [facility] [address] [place] [address] Dr. Jovanni Maya Hemoglobin (Bld) [Mass/Vol] 13.4 g/dL Normal 12.0-16.0 [facility] Comment on above: Performed By: #### C MP, HSTROPN #### [facility] [address] [place] [address] Dr. Jovanni Maya IG # 0.04 10e3/ul Critically high 0.00-0.03 [facility] Comment on above: Performed By: #### C MP, HSTROPN #### [facility] [address] [place] [address] Dr. Jovanni Maya IG % 0.3 % Normal 0.0-0.5 [facility] Comment on above: Performed By: #### C MP, HSTROPN #### [facility] [address] [place] [address] Dr. Jovanni Maya LYMPH # 1.6 103/ul Normal 1.2-3.8 [facility] Comment on above: Performed By: #### C MP, HSTROPN #### [facility] [address] [place] [address] Dr. Jovanni Maya Lymphocytes/100 WBC (Bld) 12.9 % Critically low 20.5-60.0 [facility] Comment on above: Performed By: #### C MP, HSTROPN #### [facility] [address] [place] [address] Dr. Jovanni Maya MANUAL DIFF REQ NO Normal [facility] Comment on above: Performed By: #### C MP, HSTROPN #### [facility] [address] [place] [address] Dr. Jovanni Maya MCH (RBC) [Entitic mass] 29.6 pg Normal 26.7-34.0 [facility] Comment on above: Performed By: #### C MP, HSTROPN #### [facility] [address] [place] [address] Dr. Jovanni Maya MCHC (RBC) [Mass/Vol] 35.1 g/dL Normal 29.9-35.2 [facility] Comment on above: Performed By: #### C MP, HSTROPN #### [facility] [address] [place] [address] Dr. Jovanni Maya MCV (RBC) [Entitic vol] 84.5 fL Normal 81.0-99.0 [facility] Comment on above: Performed By: #### C MP, HSTROPN #### [facility] [address] [place] [address] Dr. Jovanni Maya MONO # 0.6 103/ul Normal 0.3-0.8 [facility] Comment on above: Performed By: #### C MP, HSTROPN #### [facility] [address] [address] [address] Jovanni Maya Monocytes/100 WBC (Bld) 4.9 % Normal 1.7-12.0 [facility] Comment on above: Performed By: #### C MP, HSTROPN #### [facility] [address] [place] [address] Dr. Jovanni Maya NEUT # 10.4 103/ul Critically high 1.4-6.5 [facility] Comment on above: Performed By: #### C MP, HSTROPN #### [facility] [address] [place] [address] Dr. Jovanni Maya Neutrophils/100 WBC (Bld) 81.6 % Critically high 43.0-75.0 [facility] Comment on above: Performed By: #### C MP, HSTROPN #### [facility] [address] [place] [address] Dr. Jovanni Maya Platelet mean volume (Bld) [Entitic vol] 9.3 fL Critically low 9.5-13.5 [facility] Comment on above: Performed By: #### C DANIEL, HSTROPN #### [facility] [address] [place] [address] Dr. Jovanni Maya PLT 231 103/ul Normal 150-450 [facility] Comment on above: Performed By: #### C MP, HSTROPN #### [facility] [address] [place] [address] Dr. Jovanni aMya RBC 4.52 106/ul Normal 4.20-5.40 [facility] Comment on above: Performed By: #### C MP, HSTROPN #### [facility] [address] [place] [address] Dr. Jovanni Maya WBC 12.7 103/ul Critically high 4.0-11.0 [facility] Comment on above: Performed By: #### C MP, HSTROPN #### [facility] [address] [place] [address] HEAD WO CONon 06-12-2022 CT [...] LO TUTTLE Date: 2022-06-12 21:00 Normal [facility] DRUG SCREEN RAPID (URINE)on 06-12-2022 AMP Negative Normal NEGATIVE [facility] Comment on above: Performed By: #### P REG, ACETON #### [facility] [address] [place] [address] Dr. Jovanni Maya BAR Negative Normal NEGATIVE [facility] Comment on above: Performed By: #### P REG, ACETON #### [facility] [address] [address] [address] Jovanni Maya BUP Negative Normal NEGATIVE [facility] Comment on above: Performed By: #### P REG, ACETON #### [facility] [address] [address] [address] Jovanni Maya BZO Negative Normal NEGATIVE [facility] Comment on above: Performed By: #### P REG, ACETON #### [facility] [address] [place] [address] Dr. Jovanni Maay DARIEN Negative Normal NEGATIVE [facility] Comment on above: Performed By: #### P REG, ACETON #### [facility] [address] [place] [address] Dr. Jovanni Maya CUT-OFFS SEE BELOW Normal [...] Performed By: #### P REG, ACETON #### [facility] [address] [place] [address] Dr. Jovanni Maya DRUG CUT HEADER DRUG CLASS TEST SYST EM CUT-OFF CONCENTRATIONS ARE FOLLOWS: Normal [facility] Comment on above: Performed By: #### P REG, ACETON #### [facility] [address] [place] [address] Dr. Jovanni Maya mAMP Negative Normal NEGATIVE [facility] Comment on above: Performed By: #### P REG, ACETON #### [facility] [address] [place] [address] Dr. Jovanni Maya MTD Negative Normal NEGATIVE [facility] Comment on above: Performed By: #### P REG, ACETON #### [facility] [address] [place] [address] Dr. Jovanni Maya OPI Positive Abnormal NEGATIVE [facility] Comment on above: Performed By: #### P REG, ACETON #### [facility] [address] [place] [address] Dr. Jovanni Maya OXY Negative Normal NEGATIVE [facility] Comment on above: Performed By: #### P REG, ACETON #### [facility] [address] [place] [address] Dr. Jovanni Maya PCP Negative Normal NEGATIVE [facility] Comment on above: Performed By: #### P REG, ACETON #### [facility] [address] [address] [address] Jovanni Maya PPX Negative Normal NEGATIVE [facility] Comment on above: Performed By: #### P REG, ACETON #### [facility] [address] [place] [address] Dr. Jovanni Maya TCA Negative Normal NEGATIVE [facility] Comment on above: Performed By: #### P REG, ACETON #### [facility] [address] [place] [address] Dr. Jovanni Maya THC Positive Abnormal NEGATIVE [facility] Comment on above: Performed By: #### P REG, ACETON #### [facility] [address] [place] [address] Dr. Jovanni Maya ER URINE PROFILEon 2 Bilirubin Ql (U) Negative Normal NEGATIVE [facility] Comment on above: Performed By: #### C MP, HSTROPN #### [facility] [address] [place] [address] Dr. Jovanni Maya Clarity (U) CLEAR Normal CLEAR [facility] Comment on above: Performed By: #### C MP, HSTROPN #### [facility] [address] [place] [address] Dr. Jovanni Maya Color (U) LT. YELLOW Normal YELLOW [facility] Comment on above: Performed By: #### C MP, HSTROPN #### [facility] [address] [place] [address] Dr. Jovanni Maya ERUAHD A micrscopic examina tion will be performed if indicated. Normal [facility] Comment on above: Performed By: #### C MP, HSTROPN #### [facility] [address] [place] [address] Dr. Jovanni Maya Glucose Ql (U) Negative Normal NEGATIVE [facility] Comment on above: Performed By: #### C MP, HSTROPN #### [facility] [address] [place] [address] Dr. Jovanni Maya Hemoglobin Ql (U) Negative Normal NEGATIVE [facility] Comment on above: Performed By: #### C MP, HSTROPN #### [facility] [address] [place] [address] Dr. Jovanni Maya Ketones Ql (U) Negative Normal NEGATIVE [facility] Comment on above: Performed By: #### C MP, HSTROPN #### [facility] [address] [place] [address] Dr. Jovanni Maya LEUKOCYTES Negative Normal NEGATIVE [facility] Comment on above: Performed By: #### C MP, HSTROPN #### [facility] [address] [place] [address] Dr. Jovanni Maya Nitrite Ql (U) Negative Normal NEGATIVE [facility] Comment on above: Performed By: #### C MP, HSTROPN #### [facility] [address] [place] [address] Dr. Jovanni Maya pH (U) 8.5 [pH] Normal 5-9 [facility] Comment on above: Performed By: #### C MP, HSTROPN #### [facility] [address] [place] [address] Dr. Jovanni Maya SPEC GRAVITY 1.015 Normal 1.005-<=1. 025 [facility] Comment on above: Performed By: #### C MP, HSTROPN #### [facility] [address] [place] [address] Dr. Jovanni Maya UA PROTEIN Negative Normal NEGATIVE/ TRACE [facility] Comment on above: Performed By: #### C MP, HSTROPN #### [facility] [address] [place] [address] Dr. Jovanni Maya UR MICRO IND NOT INDICATED Normal [facility] Comment on above: Performed By: #### C MP, HSTROPN #### [facility] [address] [place] [address] Dr. Jovanni Maya Urobilinogen Qn (U) 0.2 {Carlos A'U}/dL Normal 0.2 - 1. 0 [facility] Comment on above: Performed By: #### C MP, HSTROPN #### [facility] [address] [address] [address] Jovanni Maya URon 06-12-2022 , QUAL Negative Normal NEGATIVE [facility] Comment on above: Performed By: #### C MP, HSTROPN #### [facility] [address] [address] [address] Jovanni Maya PROF 14(COMP METB)on 022 Albumin [Mass/Vol] 4.1 g/dL Normal 3.4-5.0 [facility] Comment on above: Performed By: #### C MP, HSTROPN #### [facility] [address] [address] [address] Jovanni Maya Albumin/Globulin [Mass ratio] 1.2 {ratio} Normal [facility] Comment on above: Performed By: #### C MP, HSTROPN #### [facility] [address] [address] [address] Jovanni Maya ALP [Catalytic activity/Vol] 53 U/L Normal 46-116 [facility] Comment on above: Performed By: #### C MP, HSTROPN #### [facility] [address] [place] [address] Dr. Jovanni Maya ALT [Catalytic activity/Vol] 11 U/L Critically low 14-59 [facility] Comment on above: Performed By: #### C MP, HSTROPN #### [facility] [address] [address] [address] Jovanni Maya Anion gap [Moles/Vol] 9.5 mmol/L Normal [facility] Comment on above: Performed By: #### C MP, HSTROPN #### [facility] [address] [address] [address] Jovanni Maya AST [Catalytic activity/Vol] 21 U/L Normal 15-37 [facility] Comment on above: Performed By: #### C MP, HSTROPN #### [facility] [address] [address] [address] Jovanni Maya Bilirubin [Mass/Vol] 0.3 mg/dL Normal 0.2-1.0 [facility] Comment on above: Performed By: #### C MP, HSTROPN #### [facility] [address] [place] [address] Dr. Jovanni Maya Calcium [Mass/Vol] 8.7 mg/dL Normal 8.5-10.1 [facility] Comment on above: Performed By: #### C MP, HSTROPN #### [facility] [address] [address] [address] Jovanni Maya Chloride [Moles/Vol] 104 mmol/L Normal 98-107 [facility] Comment on above: Performed By: #### C MP, HSTROPN #### [facility] [address] [place] [address] Dr. Jovanni Maya CO2 [Moles/Vol] 28.0 mmol/L Normal 21.0-32.0 [facility] Comment on above: Performed By: #### C MP, HSTROPN #### [facility] [address] [place] [address] Dr. Jovanni Maya Creatinine [Mass/Vol] 0.79 mg/dL Normal 0.55-1.02 [facility] Comment on above: Performed By: #### C DANIEL, HSTROPN #### [facility] [address] [place] [address] Dr. Jovanni Maya EGFR-AF [place] >60 Normal >=60 [facility] Comment on above: Performed By: #### C MP, HSTROPN #### [facility] [address] [place] [address] Dr. Jovanni Maya EGFR-NON AF [place] >60 Normal >=60 [facility] Comment on above: Performed By: #### C MP, HSTROPN #### [facility] [address] [place] [address] Dr. Jovanni Maya Globulin (S) [Mass/Vol] 3.5 g/dL Normal [facility] Comment on above: Performed By: #### C MP, HSTROPN #### [facility] [address] [place] [address] Dr. Jovanni Maya Glucose [Mass/Vol] 102 mg/dL Normal 74-106 [facility] Comment on above: Performed By: #### C DANIEL, HSTROPN #### [facility] [address] [place] [address] Dr. Jovanni Maya Potassium [Moles/Vol] 3.5 mmol/L Normal 3.5-5.1 [facility] Comment on above: Performed By: #### C DANIEL, HSTROPN #### [facility] [address] [place] [address] Dr. Jovanni Maya Protein [Mass/Vol] 7.6 g/dL Normal 6.4-8.2 [facility] Comment on above: Performed By: #### C DANIEL, HSTROPN #### [facility] [address] [place] [address] Dr. Jovanni Maya Sodium [Moles/Vol] 138 mmol/L Normal 136-145 [facility] Comment on above: Performed By: #### C DANIEL, HSTROPN #### [facility] [address] [place] [address] Dr. Jovanni Maya Urea nitrogen [Mass/Vol] 9.0 mg/dL Normal 7.0-18.0 [facility] Comment on above: Performed By: #### C DANIEL, HSTROPN #### [facility] [address] [place] [address] Dr. Jovanni Maya Urea nitrogen/Creatinine [Mass ratio] 11.4 mg/mg Normal [facility] Comment on above: Performed By: #### C DANIEL, HSTROPN #### [facility] [address] [place] [address] Dr. Jovanni Maya CBC AUTO DIFFon 05-24-2022 BASO # 0.0 103/ul Normal 0.0-0.1 [facility] Comment on above: Performed By: #### C DANIEL, HSTROPN #### [facility] [address] [place] [address] Dr. Jovanni Maya Basophils/100 WBC (Bld) 0.1 % Critically low 0.2-2.0 [facility] Comment on above: Performed By: #### C DANIEL, HSTROPN #### [facility] [address] [place] [address] Dr. Jovanni Maya EO # 0.0 103/ul Normal 0.0-0.7 [facility] Comment on above: Performed By: #### C DANIEL, HSTROPN #### [facility] [address] [place] [address] Dr. Jovanni Maya Eosinophils/100 WBC (Bld) 0.1 % Critically low 0.9-7.0 [facility] Comment on above: Performed By: #### C DANIEL HSTROPN #### [facility] [address] [place] [address] Dr. Jovanni Maya Erythrocyte distribution width (RBC) [Ratio] 13.1 % Normal 11.0-15.0 [facility] Comment on above: Performed By: #### C DANIEL HSTROPN #### [facility] [address] [place] [address] Dr. Jovanni Maya Hematocrit (Bld) [Volume fraction] 37.2 % Normal 36.0-48.0 [facility] Comment on above: Performed By: #### C DANIEL HSTROPN #### [facility] [address] [place] [address] Dr. Jovanni Maya Hemoglobin (Bld) [Mass/Vol] 13.0 g/dL Normal 12.0-16.0 [facility] Comment on above: Performed By: #### C DANIEL, HSTROPN #### [facility] [address] [place] [address] Dr. Jovanni Maya IG # 0.02 10e3/ul Normal 0.00-0.03 [facility] Comment on above: Performed By: #### C DANIEL, HSTROPN #### [facility] [address] [place] [address] Dr. Jovanni Maya IG % 0.3 % Normal 0.0-0.5 [facility] Comment on above: Performed By: #### C DANIEL, HSTROPN #### [facility] [address] [address] [address] Jovanni Maya LYMPH # 1.4 103/ul Normal 1.2-3.8 [facility] Comment on above: Performed By: #### C MP, HSTROPN #### [facility] [address] [place] [address] Dr. Jovanni Maya Lymphocytes/100 WBC (Bld) 20.7 % Normal 20.5-60.0 [facility] Comment on above: Performed By: #### C MP, HSTROPN #### [facility] [address] [address] [address] Jovanni Maya MANUAL DIFF REQ NO Normal [facility] Comment on above: Performed By: #### C MP, HSTROPN #### [facility] [address] [place] [address] Dr. Jovanni Maya MCH (RBC) [Entitic mass] 29.5 pg Normal 26.7-34.0 [facility] Comment on above: Performed By: #### C MP, HSTROPN #### [facility] [address] [place] [address] Dr. Jovanni Maya MCHC (RBC) [Mass/Vol] 34.9 g/dL Normal 29.9-35.2 [facility] Comment on above: Performed By: #### C MP, HSTROPN #### [facility] [address] [place] [address] Dr. Jovanni Maya MCV (RBC) [Entitic vol] 84.4 fL Normal 81.0-99.0 [facility] Comment on above: Performed By: #### C MP, HSTROPN #### [facility] [address] [place] [address] Dr. Jovanni Maya MONO # 0.5 103/ul Normal 0.3-0.8 [facility] Comment on above: Performed By: #### C MP, HSTROPN #### [facility] [address] [place] [address] Dr. Jovanni Maya Monocytes/100 WBC (Bld) 7.8 % Normal 1.7-12.0 [facility] Comment on above: Performed By: #### C MP, HSTROPN #### [facility] [address] [address] [address] Jovanni Maya NEUT # 4.8 103/ul Normal 1.4-6.5 [facility] Comment on above: Performed By: #### C MP, HSTROPN #### [facility] [address] [place] [address] Dr. Jovanni Maya Neutrophils/100 WBC (Bld) 71.0 % Normal 43.0-75.0 [facility] Comment on above: Performed By: #### C DANIEL, HSTROPN #### [facility] [address] [place] [address] Dr. Jovanni Maya Platelet mean volume (Bld) [Entitic vol] 9.5 fL Normal 9.5-13.5 [facility] Comment on above: Performed By: #### C DANIEL, HSTROPN #### [facility] [address] [place] [address] Dr. Jovanni Maya PLT 228 103/ul Normal 150-450 [facility] Comment on above: Performed By: #### C DANIEL, HSTROPN #### [facility] [address] [place] [address] Dr. Jovanni Maya RBC 4.41 106/ul Normal 4.20-5.40 [facility] Comment on above: Performed By: #### C DANIEL, HSTROPN #### [facility] [address] [place] [address] Dr. Jovanni Maya WBC 6.8 103/ul Normal 4.0-11.0 [facility] Comment on above: Performed By: #### C MP, HSTROPN #### [facility] [address] [place] [address] Dr. Jovanni Maya PROF 14(COMP METB)on 022 Albumin [Mass/Vol] 4.0 g/dL Normal 3.4-5.0 [facility] Comment on above: Performed By: #### C MP, HSTROPN #### [facility] [address] [address] [address] Jovanni Maya Albumin/Globulin [Mass ratio] 9.3 {ratio} Normal [facility] Comment on above: Performed By: #### C MP, HSTROPN #### [facility] [address] [address] [address] Jovanni Maya ALP [Catalytic activity/Vol] 56 U/L Normal 46-116 [facility] Comment on above: Performed By: #### C MP, HSTROPN #### [facility] [address] [address] [address] Jovanni Maya ALT [Catalytic activity/Vol] 8 U/L Critically low 14-59 [facility] Comment on above: Performed By: #### C MP, HSTROPN #### [facility] [address] [place] [address] Dr. Jovanni Maya Anion gap [Moles/Vol] 9.3 mmol/L Normal [facility] Comment on above: Performed By: #### C MP, HSTROPN #### [facility] [address] [address] [address] Jovanni Maya AST [Catalytic activity/Vol] 12 U/L Critically low 15-37 [facility] Comment on above: Performed By: #### C MP, HSTROPN #### [facility] [address] [address] [address] Jovanni Maya Bilirubin [Mass/Vol] 0.3 mg/dL Normal 0.2-1.0 [facility] Comment on above: Performed By: #### C MP, HSTROPN #### [facility] [address] [address] [address] Jovanni Maya Calcium [Mass/Vol] 8.6 mg/dL Normal 8.5-10.1 [facility] Comment on above: Performed By: #### C MP, HSTROPN #### [facility] [address] [address] [address] Jovanni Maya Chloride [Moles/Vol] 104 mmol/L Normal 98-107 [facility] Comment on above: Performed By: #### C MP, HSTROPN #### [facility] [address] [address] [address] Jovanni Maya CO2 [Moles/Vol] 28.1 mmol/L Normal 21.0-32.0 [facility] Comment on above: Performed By: #### C MP, HSTROPN #### [facility] [address] [address] [address] Jovanni Maya Creatinine [Mass/Vol] 0.71 mg/dL Normal 0.55-1.02 [facility] Comment on above: Performed By: #### C MP, HSTROPN #### [facility] [address] [address] [address] Jovanni Maya EGFR-AF [place] >60 Normal >=60 [facility] Comment on above: Performed By: #### C MP, HSTROPN #### [facility] [address] [address] [address] Jovanni Maya EGFR-NON AF [place] >60 Normal >=60 [facility] Comment on above: Performed By: #### C MP, HSTROPN #### [facility] [address] [address] [address] Jovanni Maya Globulin (S) [Mass/Vol] 3.4 g/dL Normal [facility] Comment on above: Performed By: #### C MP, HSTROPN #### [facility] [address] [address] [address] Jovanni Maya Glucose [Mass/Vol] 109 mg/dL Critically high 74-106 [facility] Comment on above: Performed By: #### C MP, HSTROPN #### [facility] [address] [address] [address] Jovanni Maya Potassium [Moles/Vol] 3.4 mmol/L Critically low 3.5-5.1 [facility] Comment on above: Performed By: #### C MP, HSTROPN #### [facility] [address] [address] [address] Jovanni Maya Protein [Mass/Vol] 7.4 g/dL Normal 6.4-8.2 [facility] Comment on above: Performed By: #### C MP, HSTROPN #### [facility] [address] [address] [address] Jovanni Maya Sodium [Moles/Vol] 138 mmol/L Normal 136-145 [facility] Comment on above: Performed By: #### C MP, HSTROPN #### [facility] [address] [address] [address] Jovanni Maya Urea nitrogen [Mass/Vol] 12.0 mg/dL Normal 7.0-18.0 [facility] Comment on above: Performed By: #### C MP, HSTROPN #### [facility] [address] [address] [address] Jovanni Maya Urea nitrogen/Creatinine [Mass ratio] 16.9 mg/mg Normal [facility] Comment on above: Performed By: #### C MP, HSTROPN #### [facility] [address] [address] [address] Jovanni Maya Basophils Auto (Bld) [#/Vol] Ordered By: Aman Cortes on 05-18-2022 Basophils (Bld) [#/Vol] 0.0 10*3/uL 0.0-0.2 [facility] Basophils/100 WBC Auto (Bld) Ordered By: Aman Cortes on 05-18-2022 Basophils/100 WBC (Bld) 0.3 % . [facility] Creatinine and Glomerular fi ltration rate.predicted panel (S/P/Bld)Ordered By: Aman Cortes on 05-18-2022 Creatinine [Mass/Vol] 0.74 mg/dL 0.44-1.03 [facility] Eosinophils Auto (Bld) [#/Vo l]Ordered By: Aman Cortes on 05-18-2022 Eosinophils (Bld) [#/Vol] 0.1 10*3/uL 0.0-0.45 [facility] Eosinophils/100 WBC Auto (Bl d)Ordered By: Aman Cortes on 05-18-2022 Eosinophils/100 WBC (Bld) 0.9 % . [facility] Erythrocyte distribution wid th Auto (RBC) [Ratio]Ordered By: Aman Cortes on 05-18-2022 Erythrocyte distribution width (RBC) [Ratio] 14.5 % 11.9-15.3 [facility] Estimated glomerular filtrat ion rate (GFR) non- AmericanOrdered By: Aman Cortes on 05-18-2022 GFR/1.73 sq M.predicted among non-blacks MDRD (S/P/Bld) [Vol rate/Area] > 60 mL/Min [facility] Hematocrit Auto (Bld) [Volum e fraction]Ordered By: Aman Cortes on 05-18-2022 Hematocrit (Bld) [Volume fraction] 40.4 % 34.0-46.4 [facility] Hemoglobin [Mass/volume] in BloodOrdered By: Aman Cortes on 05-18-2022 Hemoglobin (Bld) [Mass/Vol] 13.0 g/dL 11.8-15.4 [facility] - Hematology and Cell countsOrdered By: Aman Cortes on 05-18-2022 Nucleated RBC/100 WBC (Bld) [Ratio] 0.1 % 0-0.5 [facility] Leukocytes [#/volume] in Blo od by Automated countOrdered By: Aman Cortes on 05-18-2022 WBC (Bld) [#/Vol] 5.6 10*3/uL 4.5-11.0 [facility] Lymphocytes Auto (Bld) [#/Vo l]Ordered By: Aman Cortes on 05-18-2022 Lymphocytes (Bld) [#/Vol] 2.0 10*3/uL 1.00-4.8 [facility] Lymphocytes/100 WBC Auto (Bl d)Ordered By: Aman Cortes on 05-18-2022 Lymphocytes/100 WBC (Bld) 36.8 % . [facility] MCH Auto (RBC) [Entitic mass ]Ordered By: Aman Cortes on 05-18-2022 MCH (RBC) [Entitic mass] 28.6 pg 24.7-34.3 [facility] MCHC Auto (RBC) [Mass/Vol]Or dered By: Aman Cortes on 05-18-2022 MCHC (RBC) [Mass/Vol] 32.3 g/dL 32.0-35.0 [facility] MCV Auto (RBC) [Entitic vol] Ordered By: Aman Cortes on 05-18-2022 MCV (RBC) [Entitic vol] 88.4 fL 80-100 [facility] Monocytes Auto (Bld) [#/Vol] Ordered By: Aman Cortes on 05-18-2022 Monocytes (Bld) [#/Vol] 0.4 10*3/uL 0.0-0.8 [facility] Monocytes/100 WBC Auto (Bld) Ordered By: Aman Cortes on 05-18-2022 Monocytes/100 WBC (Bld) 7.3 % . [facility] Neutrophils Auto (Bld) [#/Vo l]Ordered By: Aman Cortes on 05-18-2022 Neutrophils (Bld) [#/Vol] 3.0 10*3/uL 1.8-7.7 [facility] Neutrophils/100 WBC Auto (Bl d)Ordered By: Aman Cortes on 05-18-2022 Neutrophils/100 WBC (Bld) 54.7 % . [facility] No Panel InformationOrdered By: Aman Cortes on 05-18-2022 Estimated GFR () > 60 mL/Min [facility] Comment on above: GFR estimated refere nce range: According to KDOQI guidelines, <60 ml/min/1.73m2 is sufficient to diagnose a patient with chronic kidney disease. Pharmacy Creatinine Clearance (Chem 92.05 [facility] Platelet mean volume Auto (B ld) [Entitic vol]Ordered By: mAan Cortes on 05-18-2022 Platelet mean volume (Bld) [Entitic vol] 8.1 fL 6.3-10.7 [facility] Platelets Auto (Bld) [#/Vol] Ordered By: Aman Cortes on 05-18-2022 Platelets (Bld) [#/Vol] 268 10*3/uL 150-450 [facility] Prolactin [Mass/volume] in S alexis or PlasmaOrdered By: Aman Cortes on 05-18-2022 Prolactin [Mass/Vol] 8.64 ng/mL 3.34-26.72 [facility] RBC Auto (Bld) [#/Vol]Ordere d By: Aman Cortes on 05-18-2022 RBC (Bld) [#/Vol] 4.57 10*6/uL 3.60-5.00 [facility] Serum or plasma anion gap de terminationOrdered By: Aman Cortes on 05-18-2022 Anion gap [Moles/Vol] 10.1 mmol/L 6.0-15.0 [facility] Serum or plasma calcium randi urement (mass/volume)Ordered By: Aman Cortes on 05-18-2022 Calcium [Mass/Vol] 9.0 mg/dL 8.2-10.2 [facility] Serum or plasma chloride melonie surement (moles/volume)Ordered By: Aman Cortes on 05-18-2022 Chloride [Moles/Vol] 103 mmol/L 95-114 [facility] Serum or plasma glucose randi urement (mass/volume)Ordered By: Aman Cortes on 05-18-2022 Glucose [Mass/Vol] 110 mg/dL 70-100 [facility] Comment on above: ADA recommended refe rence rangeRandom Glucose Reference Range is dependent on time and content of last meal. Glucose of more than 200 mg/dL in a nonstressed, ambulatory subject supports the diagnosis of Diabetes Mellitus. Serum or plasma potassium me asurement (moles/volume)Ordered By: Aman Cortes on 05-18-2022 Potassium [Moles/Vol] 3.8 mmol/L 3.5-5.1 [facility] Serum or plasma sodium measu rement (moles/volume)Ordered By: Aman Cortes on 05-18-2022 Sodium [Moles/Vol] 138 mmol/L 136-146 [facility] Serum or plasma total carbon dioxide measurement (moles/volume)Ordered By: Aman Cortes on 05-18-2022 CO2 [Moles/Vol] 28.7 mmol/L 22.0-30.0 [facility] Serum or plasma urea nitroge n measurement (mass/volume)Ordered By: Aman Cortes on 05-18-2022 Urea nitrogen [Mass/Vol] 10 mg/dL 9-23 [facility] CBC AUTO DIFFon 05-15-2022 BASO # 0.0 103/ul Normal 0.0-0.1 [facility] Comment on above: Performed By: #### P REG, ACETON #### [facility] [address] [place] [address] Dr. Jovanni Maya Basophils/100 WBC (Bld) 0.3 % Normal 0.2-2.0 [facility] Comment on above: Performed By: #### P REG, ACETON #### [facility] [address] [address] [address] Jovanni Maya EO # 0.0 103/ul Normal 0.0-0.7 [facility] Comment on above: Performed By: #### P REG, ACETON #### [facility] [address] [place] [address] Dr. Jovanni Maya Eosinophils/100 WBC (Bld) 0.3 % Critically low 0.9-7.0 [facility] Comment on above: Performed By: #### P REG, ACETON #### [facility] [address] [address] [address] Jovanni Maya Erythrocyte distribution width (RBC) [Ratio] 13.1 % Normal 11.0-15.0 [facility] Comment on above: Performed By: #### P REG, ACETON #### [facility] [address] [place] [address] Dr. Jovanni Maya Hematocrit (Bld) [Volume fraction] 39.5 % Normal 36.0-48.0 [facility] Comment on above: Performed By: #### P REG, ACETON #### [facility] [address] [place] [address] Dr. Jovanni Maya Hemoglobin (Bld) [Mass/Vol] 13.5 g/dL Normal 12.0-16.0 [facility] Comment on above: Performed By: #### P REG, ACETON #### [facility] [address] [place] [address] Dr. Jovanni Maya IG # 0.04 10e3/ul Critically high 0.00-0.03 [facility] Comment on above: Performed By: #### P REG, ACETON #### [facility] [address] [address] [address] Jovanni Maya IG % 0.4 % Normal 0.0-0.5 [facility] Comment on above: Performed By: #### P REG, ACETON #### [facility] [address] [address] [address] Jovanni Maya LYMPH # 1.9 103/ul Normal 1.2-3.8 [facility] Comment on above: Performed By: #### P REG, ACETON #### [facility] [address] [address] [address] Jovanni Maya Lymphocytes/100 WBC (Bld) 17.4 % Critically low 20.5-60.0 [facility] Comment on above: Performed By: #### P REG, ACETON #### [facility] [address] [place] [address] Dr. Jovanni Maya MANUAL DIFF REQ NO Normal [facility] Comment on above: Performed By: #### P REG, ACETON #### [facility] [address] [address] [address] Jovanni Maya MCH (RBC) [Entitic mass] 29.3 pg Normal 26.7-34.0 [facility] Comment on above: Performed By: #### P REG, ACETON #### [facility] [address] [address] [address] Jovanni Maya MCHC (RBC) [Mass/Vol] 34.2 g/dL Normal 29.9-35.2 [facility] Comment on above: Performed By: #### P REG, ACETON #### [facility] [address] [address] [address] Jovanni Maya MCV (RBC) [Entitic vol] 85.7 fL Normal 81.0-99.0 [facility] Comment on above: Performed By: #### P REG, ACETON #### [facility] [address] [address] [address] Jovanni Maya MONO # 0.6 103/ul Normal 0.3-0.8 [facility] Comment on above: Performed By: #### P REG, ACETON #### [facility] [address] [place] [address] Dr. Jovanni Maya Monocytes/100 WBC (Bld) 5.0 % Normal 1.7-12.0 [facility] Comment on above: Performed By: #### P REG, ACETON #### [facility] [address] [place] [address] Dr. Jovanni Maya NEUT # 8.4 103/ul Critically high 1.4-6.5 [facility] Comment on above: Performed By: #### P REG, ACETON #### [facility] [address] [place] [address] Dr. Jovanni Maya Neutrophils/100 WBC (Bld) 76.6 % Critically high 43.0-75.0 [facility] Comment on above: Performed By: #### P REG, ACETON #### [facility] [address] [place] [address] Dr. Jovanni Maya Platelet mean volume (Bld) [Entitic vol] 10.5 fL Normal 9.5-13.5 [facility] Comment on above: Performed By: #### P REG, ACETON #### [facility] [address] [place] [address] Dr. Jovanni Maya PLT 279 103/ul Normal 150-450 [facility] Comment on above: Performed By: #### P REG, ACETON #### [facility] [address] [place] [address] Dr. Jovanni Maya RBC 4.61 106/ul Normal 4.20-5.40 [facility] Comment on above: Performed By: #### P REG, ACETON #### [facility] [address] [place] [address] Dr. Jovanni Maya WBC 11.0 103/ul Normal 4.0-11.0 [facility] Comment on above: Performed By: #### P REG, ACETON #### [facility] [address] [place] [address] Dr. Jovanni Maya ER URINE PROFILEon 11-19-202 2 Bilirubin Ql (U) Negative Normal NEGATIVE [facility] Comment on above: Performed By: #### C MP, HSTROPN #### [facility] [address] [address] [address] Jovanni Maya Clarity (U) CLEAR Normal CLEAR [facility] Comment on above: Performed By: #### C MP, HSTROPN #### [facility] [address] [address] [address] Jovanni Maya Color (U) LT. YELLOW Normal YELLOW [facility] Comment on above: Performed By: #### C MP, HSTROPN #### [facility] [address] [address] [address] Jovanni ANTOINE A micrscopic examina tion will be performed if indicated. Normal [facility] Comment on above: Performed By: #### C MP, HSTROPN #### [facility] [address] [address] [address] Jovanni Maya Glucose Ql (U) Negative Normal NEGATIVE [facility] Comment on above: Performed By: #### C MP, HSTROPN #### [facility] [address] [place] [address] Dr. Jovanni Maya Hemoglobin Ql (U) Negative Normal NEGATIVE [facility] Comment on above: Performed By: #### C MP, HSTROPN #### [facility] [address] [address] [address] Jovanni Maya Ketones Ql (U) Negative Normal NEGATIVE [facility] Comment on above: Performed By: #### C MP, HSTROPN #### [facility] [address] [address] [address] Jovanni Maya LEUKOCYTES Negative Normal NEGATIVE [facility] Comment on above: Performed By: #### C MP, HSTROPN #### [facility] [address] [address] [address] Jovanni Maya Nitrite Ql (U) Negative Normal NEGATIVE [facility] Comment on above: Performed By: #### C MP, HSTROPN #### [facility] [address] [address] [address] Jovanni Maya pH (U) 7.0 [pH] Normal 5-9 [facility] Comment on above: Performed By: #### C DANIEL, HSTROPN #### [facility] [address] [place] [address] Dr. Jovanni Maya SPEC GRAVITY 1.010 Normal 1.005-<=1. 025 [facility] Comment on above: Performed By: #### C DANIEL, HSTROPN #### [facility] [address] [place] [address] Dr. Jovanni Maya UA PROTEIN Negative Normal NEGATIVE/ TRACE [facility] Comment on above: Performed By: #### C DANIEL, HSTROPN #### [facility] [address] [place] [address] Dr. Jovanni Maya UR MICRO IND NOT INDICATED Normal [facility] Comment on above: Performed By: #### C DANIEL, HSTROPN #### [facility] [address] [place] [address] Dr. Jovanni Maya Urobilinogen Qn (U) 0.2 {Carlos A'U}/dL Normal 0.2 - 1. 0 [facility] Comment on above: Performed By: #### C DANIEL, HSTROPN #### [facility] [address] [place] [address] Dr. Jovanni Maya PROF 14(COMP METB)on 022 Albumin [Mass/Vol] 3.6 g/dL Normal 3.4-5.0 [facility] Comment on above: Performed By: #### P REG, ACETON #### [facility] [address] [place] [address] Dr. Jovanni Maya Albumin/Globulin [Mass ratio] 1.2 {ratio} Normal [facility] Comment on above: Performed By: #### P REG, ACETON #### [facility] [address] [place] [address] Dr. Jovanni Maya ALP [Catalytic activity/Vol] 49 U/L Normal 46-116 [facility] Comment on above: Performed By: #### P REG, ACETON #### [facility] [address] [address] [address] Jovanni Maya ALT [Catalytic activity/Vol] 4 U/L Critically low 14-59 [facility] Comment on above: Performed By: #### P REG, ACETON #### [facility] [address] [address] [address] Jovanni Maya Anion gap [Moles/Vol] 9.0 mmol/L Normal [facility] Comment on above: Performed By: #### P REG, ACETON #### [facility] [address] [address] [address] Jovanni Maya AST [Catalytic activity/Vol] 10 U/L Critically low 15-37 [facility] Comment on above: Performed By: #### P REG, ACETON #### [facility] [address] [address] [address] Jovanni Maya Bilirubin [Mass/Vol] 0.4 mg/dL Normal 0.2-1.0 [facility] Comment on above: Performed By: #### P REG, ACETON #### [facility] [address] [address] [address] Jovanni Maya Calcium [Mass/Vol] 8.2 mg/dL Critically low 8.5-10.1 [facility] Comment on above: Performed By: #### P REG, ACETON #### [facility] [address] [address] [address] Jovanni Maya Chloride [Moles/Vol] 107 mmol/L Normal 98-107 [facility] Comment on above: Performed By: #### P REG, ACETON #### [facility] [address] [address] [address] Jovanni Maya CO2 [Moles/Vol] 25.8 mmol/L Normal 21.0-32.0 [facility] Comment on above: Performed By: #### P REG, ACETON #### [facility] [address] [address] [address] Jovanni Maya Creatinine [Mass/Vol] 0.73 mg/dL Normal 0.55-1.02 [facility] Comment on above: Performed By: #### P REG, ACETON #### [facility] [address] [address] [address] Jovanni Maya EGFR-AF [place] >60 Normal >=60 [facility] Comment on above: Performed By: #### P REG, ACETON #### [facility] [address] [address] [address] Jovanni Maya EGFR-NON AF [place] >60 Normal >=60 [facility] Comment on above: Performed By: #### P REG, ACETON #### [facility] [address] [address] [address] Jovanni Maya Globulin (S) [Mass/Vol] 3.0 g/dL Normal [facility] Comment on above: Performed By: #### P REG, ACETON #### [facility] [address] [address] [address] Jovanni Maya Glucose [Mass/Vol] 121 mg/dL Critically high 74-106 [facility] Comment on above: Performed By: #### P REG, ACETON #### [facility] [address] [address] [address] Jovanni Maya Potassium [Moles/Vol] 3.8 mmol/L Normal 3.5-5.1 [facility] Comment on above: Performed By: #### P REG, ACETON #### [facility] [address] [address] [address] Jovanni Maya Protein [Mass/Vol] 6.6 g/dL Normal 6.4-8.2 [facility] Comment on above: Performed By: #### P REG, ACETON #### [facility] [address] [address] [address] Jovanni Maya Sodium [Moles/Vol] 138 mmol/L Normal 136-145 [facility] Comment on above: Performed By: #### P REG, ACETON #### [facility] [address] [address] [address] Jovanni Maya Urea nitrogen [Mass/Vol] 9.0 mg/dL Normal 7.0-18.0 [facility] Comment on above: Performed By: #### P REG, ACETON #### [facility] [address] [address] [address] Jovanni Maya Urea nitrogen/Creatinine [Mass ratio] 12.3 mg/mg Normal [facility] Comment on above: Performed By: #### P REG, ACETON #### [facility] [address] [place], [place] [address] Dr. Jovanni Maya Albumin [Mass/volume] in Ser um or PlasmaOrdered By: Som Fiore on 04-22-2022 Albumin [Mass/Vol] 4.1 g/dL 3.2-5.5 [facility] Amphetamine Screen Ql (U)Ord ered By: Som Fiore on 04-22-2022 Amphetamines Ql (U) Negative Negative [facility] Automated erythrocytes count in urine sediment (number/area)Ordered By: Som Fiore on 04-22-2022 RBC Auto (Urine sed) [#/Area] 5-9 [HPF] 0-4 [facility] Automated leukocytes count i n urine sediment (number/area)Ordered By: Som Fiore on 04-22-2022 WBC Auto (Urine sed) [#/Area] 1-2 [HPF] 0-4 [facility] Barbiturates [Presence] in U rineOrdered By: Som Fiore on 04-22-2022 Barbiturates Ql (U) Negative Negative [facility] Basophils Auto (Bld) [#/Vol] Ordered By: Som Fiore on 04-22-2022 Basophils (Bld) [#/Vol] 0.0 10*3/uL 0.0-0.2 [facility] Basophils/100 WBC Auto (Bld) Ordered By: Som Fiore on 04-22-2022 Basophils/100 WBC (Bld) 0.4 % . [facility] Benzodiazepines [Presence] i n UrineOrdered By: Som Fiore on 04-22-2022 Benzodiazepines Ql (U) Negative Negative [facility] Bilirubin Test strip Ql (U)O rdered By: Som Fiore on 04-22-2022 Bilirubin Ql (U) Negative Negative [facility] Cannabinoids [Presence] in U rine by Screen methodOrdered By: Som Fiore on 04-22-2022 Cannabinoids Screen Ql (U) Positive Negative [facility] Comment on above: These are unconfirme d results and should not be used for legal purposes. Drug Cut-Off Concentration: AMPH 1000 ng/mL ELMER 200 ng/mL BRICE 200 ng/mL COCM 300 ng/mL OP 300 ng/mL PCP 25 ng/mL THC 20 ng/mL Color Auto (U)Ordered By: Giovanni Fiore on 04-22-2022 Color (U) Yellow Yellow [facility] Creatinine and Glomerular fi ltration rate.predicted panel (S/P/Bld)Ordered By: Som Fiore on 04-22-2022 Creatinine [Mass/Vol] 0.72 mg/dL 0.44-1.03 [facility] Eosinophils Auto (Bld) [#/Vo l]Ordered By: Som Fiore on 04-22-2022 Eosinophils (Bld) [#/Vol] 0.0 10*3/uL 0.0-0.45 [facility] Eosinophils/100 WBC Auto (Bl d)Ordered By: Som Fiore on 04-22-2022 Eosinophils/100 WBC (Bld) 0.6 % . [facility] Erythrocyte distribution wid th Auto (RBC) [Ratio]Ordered By: Som Fiore on 04-22-2022 Erythrocyte distribution width (RBC) [Ratio] 14.6 % 11.9-15.3 [facility] Estimated glomerular filtrat ion rate (GFR) non- AmericanOrdered By: Som Fiore on 04-22-2022 GFR/1.73 sq M.predicted among non-blacks MDRD (S/P/Bld) [Vol rate/Area] > 60 mL/Min [facility] Globulin Calc (S) [Mass/Vol] Ordered By: Som Fiore on 04-22-2022 Globulin (S) [Mass/Vol] 3.2 g/dL [facility] Hematocrit Auto (Bld) [Volum e fraction]Ordered By: Som Fiore on 04-22-2022 Hematocrit (Bld) [Volume fraction] 40.7 % 34.0-46.4 [facility] Hemoglobin [Mass/volume] in BloodOrdered By: Som Fiore on 04-22-2022 Hemoglobin (Bld) [Mass/Vol] 13.4 g/dL 11.8-15.4 [facility] Ketones Auto test strip (U) [Mass/Vol]Ordered By: Som Fiore on 04-22-2022 Ketones (U) [Mass/Vol] Negative Negative [facility] - Drug toxicology Ordered By: Som Fiore on 04-22-2022 Opiates Ql (U) Negative Negative [facility] - Hematology and Cell countsOrdered By: Som Fiore on 04-22-2022 Nucleated RBC/100 WBC (Bld) [Ratio] 0.1 % 0-0.5 [facility] - UrinalysisOrder ed By: Som Fiore on 04-22-2022 Hyaline casts LM Ql (Urine sed) 0-8 [LPF] 0-8 [facility] Leukocytes [#/volume] in Blo od by Automated countOrdered By: Som Fiore on 04-22-2022 WBC (Bld) [#/Vol] 7.2 10*3/uL 4.5-11.0 [facility] Lymphocytes Auto (Bld) [#/Vo l]Ordered By: Som Fiore on 04-22-2022 Lymphocytes (Bld) [#/Vol] 2.2 10*3/uL 1.00-4.8 [facility] Lymphocytes/100 WBC Auto (Bl d)Ordered By: Som Fiore on 04-22-2022 Lymphocytes/100 WBC (Bld) 30.1 % . [facility] MCH Auto (RBC) [Entitic mass ]Ordered By: Som Fiore on 04-22-2022 MCH (RBC) [Entitic mass] 28.8 pg 24.7-34.3 [facility] MCHC Auto (RBC) [Mass/Vol]Or dered By: Som Fiore on 04-22-2022 MCHC (RBC) [Mass/Vol] 32.9 g/dL 32.0-35.0 [facility] MCV Auto (RBC) [Entitic vol] Ordered By: Som Fiore on 04-22-2022 MCV (RBC) [Entitic vol] 87.4 fL 80-100 [facility] Monocytes Auto (Bld) [#/Vol] Ordered By: Som Fiore on 04-22-2022 Monocytes (Bld) [#/Vol] 0.5 10*3/uL 0.0-0.8 [facility] Monocytes/100 WBC Auto (Bld) Ordered By: Som Fiore on 04-22-2022 Monocytes/100 WBC (Bld) 7.1 % . [facility] Neutrophils Auto (Bld) [#/Vo l]Ordered By: Som Fiore on 04-22-2022 Neutrophils (Bld) [#/Vol] 4.4 10*3/uL 1.8-7.7 [facility] Neutrophils/100 WBC Auto (Bl d)Ordered By: Som Fiore on 04-22-2022 Neutrophils/100 WBC (Bld) 61.8 % . [facility] Nitrite Test strip Ql (U)Ord ered By: Som Fiore on 04-22-2022 Nitrite Ql (U) Negative Negative [facility] No Panel InformationOrdered By: Som Fiore on 04-22-2022 Estimated GFR () > 60 mL/Min [facility] Comment on above: GFR estimated refere nce range: According to KDOQI guidelines, <60 ml/min/1.73m2 is sufficient to diagnose a patient with chronic kidney disease. Pharmacy Creatinine Clearance (Chem 94.05 [facility] Phencyclidine Screen Ql (U)O rdered By: Som Fiore on 04-22-2022 Phencyclidine Ql (U) Negative Negative [facility] Platelet mean volume Auto (B ld) [Entitic vol]Ordered By: Som Fiore on 04-22-2022 Platelet mean volume (Bld) [Entitic vol] 8.2 fL 6.3-10.7 [facility] Platelets Auto (Bld) [#/Vol] Ordered By: Som Fiore on 04-22-2022 Platelets (Bld) [#/Vol] 268 10*3/uL 150-450 [facility] Protein Auto test strip (U) [Mass/Vol]Ordered By: Som Fiore on 04-22-2022 Protein (U) [Mass/Vol] Negative Negative [facility] Protein [Mass/volume] in Ser um or PlasmaOrdered By: Som Fiore on 04-22-2022 Protein [Mass/Vol] 7.3 g/dL 6.1-7.9 [facility] RBC Auto (Bld) [#/Vol]Ordere d By: Som Fiore on 04-22-2022 RBC (Bld) [#/Vol] 4.66 10*6/uL 3.60-5.00 [facility] Serum or plasma alanine white otransferase measurement without P-5'-P (enzymatic activiOrdered By: Som Fiore on 04-22-2022 ALT No additional P-5'-P [Catalytic activity/Vol] 10 U/L 1060 [facility] Serum or plasma albumin/glob ulin mass ratioOrdered By: Som Fiore on 04-22-2022 Albumin/Globulin [Mass ratio] 1.3 {ratio} [facility] Serum or plasma alkaline ignacio sphatase measurement (enzymatic activity/volume)Ordered By: Som Fiore on 04-22-2022 ALP [Catalytic activity/Vol] 49 U/L 32-92 [facility] Serum or plasma anion gap de terminationOrdered By: Som Fiore on 04-22-2022 Anion gap [Moles/Vol] 11.7 mmol/L 6.0-15.0 [facility] Serum or plasma aspartate am inotransferase measurement (enzymatic activity/volume)Ordered By: Som Fiore on 04-22-2022 AST [Catalytic activity/Vol] 17 U/L 10-42 [facility] Serum or plasma calcium randi urement (mass/volume)Ordered By: Som Fiore on 04-22-2022 Calcium [Mass/Vol] 9.4 mg/dL 8.2-10.2 [facility] Serum or plasma chloride melonie surement (moles/volume)Ordered By: Som Fiore on 04-22-2022 Chloride [Moles/Vol] 102 mmol/L 95-114 [facility] Serum or plasma glucose randi urement (mass/volume)Ordered By: Som Fiore on 04-22-2022 Glucose [Mass/Vol] 101 mg/dL 70-100 [facility] Comment on above: ADA recommended refe rence rangeRandom Glucose Reference Range is dependent on time and content of last meal. Glucose of more than 200 mg/dL in a nonstressed, ambulatory subject supports the diagnosis of Diabetes Mellitus. Serum or plasma potassium me asurement (moles/volume)Ordered By: Som Fiore on 04-22-2022 Potassium [Moles/Vol] 3.9 mmol/L 3.5-5.1 [facility] Serum or plasma sodium measu rement (moles/volume)Ordered By: Som Fiore on 04-22-2022 Sodium [Moles/Vol] 139 mmol/L 136-146 [facility] Serum or plasma total biliru bin measurement (mass/volume)Ordered By: Som Fiore on 04-22-2022 Bilirubin [Mass/Vol] 0.7 mg/dL 0.3-1.2 [facility] Serum or plasma total carbon dioxide measurement (moles/volume)Ordered By: Som Fiore on 04-22-2022 CO2 [Moles/Vol] 29.2 mmol/L 22.0-30.0 [facility] Serum or plasma urea nitroge n measurement (mass/volume)Ordered By: Som Fiore on 04-22-2022 Urea nitrogen [Mass/Vol] 6 mg/dL - [facility] Specific gravity Auto test s trip (U) [Rel density]Ordered By: Som Fiore on 04-22-2022 Specific gravity (U) [Rel density] 1.017 1.001-1.03 0 [facility] Squamous epithelial cells de tection in urine sediment by light microscopyOrdered By: Som Fiore on 04-22-2022 Epithelial cells.squamous LM Ql (Urine sed) 0-1 [HPF] 0-2 [facility] Urine bacteria detection by automated methodOrdered By: Som Fiore on 04-22-2022 Bacteria Auto Ql (U) None seen None Seen [facility] Urine clarity by refractomet ry automatedOrdered By: Som Fiore on 04-22-2022 Clarity Refractometry automated (U) Turbid Clear [facility] Urine cocaine detectionOrder ed By: Som Fiore on 04-22-2022 Cocaine Ql (U) Negative Negative [facility] Urine glucose measurement by automated test strip (mass/volume)Ordered By: Som Fiore on 04-22-2022 Glucose Auto test strip (U) [Mass/Vol] Normal mg/dL Normal [facility] Urine hemoglobin detection b y automated test stripOrdered By: Som Fiore on 04-22-2022 Hemoglobin Auto test strip Ql (U) 2+ Negative [facility] Urine leukocyte esterase det ection by automated test stripOrdered By: Som Fiore on 04-22-2022 Leukocyte esterase Auto test strip Ql (U) Negative Negative [facility] Urobilinogen Auto test strip (U) [Mass/Vol]Ordered By: Som Fiore on 04-22-2022 Urobilinogen (U) [Mass/Vol] Normal mg/dL Normal [facility] Yeast detection in urine sed iment by light microscopyOrdered By: Som Fiore on 04-22-2022 Yeast LM Ql (Urine sed) None seen [HPF] None Seen [facility] pH Auto test strip (U)Ordere d By: Som Fiore on 04-22-2022 pH (U) 7.0 [pH] 5.0-9.0 [facility] Urine culture routineOrdered By: Som Fiore on 04-07-2022 Bacteria identified Cx Nom (U) No Growth 2 Days [facility] Amphetamine Screen Ql (U)Ord ered By: Som Fiore on 04-05-2022 Amphetamines Ql (U) Negative Negative [facility] Automated erythrocytes count in urine sediment (number/area)Ordered By: Som Fiore on 04-05-2022 RBC Auto (Urine sed) [#/Area] 5-9 [HPF] 0-4 [facility] Automated leukocytes count i n urine sediment (number/area)Ordered By: Som Fiore on 04-05-2022 WBC Auto (Urine sed) [#/Area] 5-9 [HPF] 0-4 [facility] Barbiturates [Presence] in U rineOrdered By: Som Fiore on 04-05-2022 Barbiturates Ql (U) Negative Negative [facility] Basophils Auto (Bld) [#/Vol] Ordered By: Som Fiore on 04-05-2022 Basophils (Bld) [#/Vol] 0.0 10*3/uL 0.0-0.2 [facility] Basophils/100 WBC Auto (Bld) Ordered By: Som Fiore on 04-05-2022 Basophils/100 WBC (Bld) 0.5 % . [facility] Benzodiazepines [Presence] i n UrineOrdered By: Som Fiore on 04-05-2022 Benzodiazepines Ql (U) Negative [facility] Test strip Ql (U)O rdered By: Som Fiore on 04-05-2022 Bilirubin Ql (U) Negative Negative [facility] Blood hemoglobin measurement (mass/volume)Ordered By: Som Fiore on 04-05-2022 Hemoglobin (Bld) [Mass/Vol] 13.4 g/dL 11.8-15.4 [facility] Blood leukocytes automated c ount (number/volume)Ordered By: Som Fiore on 04-05-2022 WBC (Bld) [#/Vol] 6.5 10*3/uL 4.5-11.0 [facility] Cannabinoids [Presence] in U rine by Screen methodOrdered By: Som Fiore on 04-05-2022 Cannabinoids Screen Ql (U) Positive Negative [facility] Comment on above: These are unconfirme d results and should not be used for legal purposes. Drug Cut-Off Concentration: AMPH 1000 ng/mL ELMER 200 ng/mL BRICE 200 ng/mL COCM 300 ng/mL OP 300 ng/mL PCP 25 ng/mL THC 20 ng/mL Color Auto (U)Ordered By: Giovanni Fiore on 04-05-2022 Color (U) Yellow Yellow [facility] Creatinine and Glomerular fi ltration rate.predicted panel (S/P/Bld)Ordered By: Som Fiore on 04-05-2022 Creatinine [Mass/Vol] 0.73 mg/dL 0.44-1.03 [facility] Eosinophils Auto (Bld) [#/Vo l]Ordered By: Som Fiore on 04-05-2022 Eosinophils (Bld) [#/Vol] 0.0 10*3/uL 0.0-0.45 [facility] Eosinophils/100 WBC Auto (Bl d)Ordered By: Som Fiore on 10-10-2022 Eosinophils/100 WBC (Bld) 0.5 % . [facility] Erythrocyte distribution wid th Auto (RBC) [Ratio]Ordered By: Som Fiore on 04-05-2022 Erythrocyte distribution width (RBC) [Ratio] 14.2 % 11.9-15.3 [facility] Estimated glomerular filtrat ion rate (GFR) non- AmericanOrdered By: Som Fiore on 04-05-2022 GFR/1.73 sq M.predicted among non-blacks MDRD (S/P/Bld) [Vol rate/Area] > 60 mL/Min [facility] HCG ( test) IA.rapi d Ql (U)Ordered By: Som Fiore on 04-05-2022 HCG ( test) Ql (U) Negative [facility] Hematocrit Auto (Bld) [Volum e fraction]Ordered By: Som Fiore on 04-05-2022 Hematocrit (Bld) [Volume fraction] 40.4 % 34.0-46.4 [facility] Ketones Auto test strip (U) [Mass/Vol]Ordered By: Som Fiore on 04-05-2022 Ketones (U) [Mass/Vol] Negative Negative [facility] - Drug toxicology Ordered By: Som Fiore on 04-05-2022 Opiates Ql (U) Negative Negative [facility] - Hematology and Cell countsOrdered By: Som Fiore on 04-05-2022 Nucleated RBC/100 WBC (Bld) [Ratio] 0.1 % 0-0.5 [facility] Laboratory - UrinalysisOrder ed By: Som Fiore on 04-05-2022 Hyaline casts LM Ql (Urine sed) 0-8 [LPF] 0-8 [facility] Lymphocytes Auto (Bld) [#/Vo l]Ordered By: Som Fiore on 04-05-2022 Lymphocytes (Bld) [#/Vol] 2.0 10*3/uL 1.00-4.8 [facility] Lymphocytes/100 WBC Auto (Bl d)Ordered By: Som Fiore on 04-05-2022 Lymphocytes/100 WBC (Bld) 30.0 % . [facility] MCH Auto (RBC) [Entitic mass ]Ordered By: Som Fiore on 04-05-2022 MCH (RBC) [Entitic mass] 28.8 pg 24.7-34.3 [facility] MCHC Auto (RBC) [Mass/Vol]Or dered By: Som Fiore on 04-05-2022 MCHC (RBC) [Mass/Vol] 33.2 g/dL 32.0-35.0 [facility] MCV Auto (RBC) [Entitic vol] Ordered By: Som Fiore on 04-05-2022 MCV (RBC) [Entitic vol] 86.6 fL 80-100 [facility] Monocytes Auto (Bld) [#/Vol] Ordered By: Som Fiore on 04-05-2022 Monocytes (Bld) [#/Vol] 0.5 10*3/uL 0.0-0.8 [facility] Monocytes/100 WBC Auto (Bld) Ordered By: Som Fiore on 04-05-2022 Monocytes/100 WBC (Bld) 7.0 % . [facility] Neutrophils Auto (Bld) [#/Vo l]Ordered By: Som Fiore on 04-05-2022 Neutrophils (Bld) [#/Vol] 4.0 10*3/uL 1.8-7.7 [facility] Neutrophils/100 WBC Auto (Bl d)Ordered By: Som Fiore on 04-05-2022 Neutrophils/100 WBC (Bld) 62.0 % . [facility] Nitrite Test strip Ql (U)Ord ered By: Som Fiore on 04-05-2022 Nitrite Ql (U) Negative Negative [facility] No Panel InformationOrdered By: Som Fiore on 04-05-2022 Estimated GFR () > 60 mL/Min [facility] Comment on above: GFR estimated refere nce range: According to KDOQI guidelines, <60 ml/min/1.73m2 is sufficient to diagnose a patient with chronic kidney disease. Pharmacy Creatinine Clearance (Chem 92.76 [facility] Phencyclidine Screen Ql (U)O rdered By: Som Fiore on 04-05-2022 Phencyclidine Ql (U) Negative Negative [facility] Platelet mean volume Auto (B ld) [Entitic vol]Ordered By: Som Fiore on 04-05-2022 Platelet mean volume (Bld) [Entitic vol] 7.8 fL 6.3-10.7 [facility] Platelets Auto (Bld) [#/Vol] Ordered By: Som Fiore on 04-05-2022 Platelets (Bld) [#/Vol] 278 10*3/uL 150-450 [facility] Protein Auto test strip (U) [Mass/Vol]Ordered By: Som Fiore on 04-05-2022 Protein (U) [Mass/Vol] Negative Negative [facility] RBC Auto (Bld) [#/Vol]Ordere d By: Som Fiore on 04-05-2022 RBC (Bld) [#/Vol] 4.66 10*6/uL 3.60-5.00 [facility] Serum or plasma anion gap de terminationOrdered By: Som Fiore on 04-05-2022 Anion gap [Moles/Vol] 14.4 mmol/L 6.0-15.0 [facility] Serum or plasma calcium randi urement (mass/volume)Ordered By: Som Fiore on 04-05-2022 Calcium [Mass/Vol] 9.5 mg/dL 8.2-10.2 [facility] Serum or plasma chloride melonie surement (moles/volume)Ordered By: Som Fiore on 04-05-2022 Chloride [Moles/Vol] 100 mmol/L 95-114 [facility] Serum or plasma glucose randi urement (mass/volume)Ordered By: Som Fiore on 04-05-2022 Glucose [Mass/Vol] 97 mg/dL 70-100 [facility] Comment on above: ADA recommended refe rence rangeRandom Glucose Reference Range is dependent on time and content of last meal. Glucose of more than 200 mg/dL in a nonstressed, ambulatory subject supports the diagnosis of Diabetes Mellitus. Serum or plasma potassium me asurement (moles/volume)Ordered By: Som Fiore on 04-05-2022 Potassium [Moles/Vol] 4.1 mmol/L 3.5-5.1 [facility] Serum or plasma sodium measu rement (moles/volume)Ordered By: Som Fiore on 04-05-2022 Sodium [Moles/Vol] 139 mmol/L 136-146 [facility] Serum or plasma total carbon dioxide measurement (moles/volume)Ordered By: Som Fiore on 04-05-2022 CO2 [Moles/Vol] 28.7 mmol/L 22.0-30.0 [facility] Serum or plasma urea nitroge n measurement (mass/volume)Ordered By: Som Fiore on 04-05-2022 Urea nitrogen [Mass/Vol] 7 mg/dL 9-23 [facility] Specific gravity Auto test s trip (U) [Rel density]Ordered By: Som Fiore on 04-05-2022 Specific gravity (U) [Rel density] 1.011 1.001-1.03 0 [facility] Squamous epithelial cells de tection in urine sediment by light microscopyOrdered By: Som Fiore on 04-05-2022 Epithelial cells.squamous LM Ql (Urine sed) 1-2 [HPF] 0-2 [facility] Urine bacteria detection by automated methodOrdered By: Som Fiore on 04-05-2022 Bacteria Auto Ql (U) None seen None Seen [facility] Urine clarity by refractomet ry automatedOrdered By: Som Fiore on 04-05-2022 Clarity Refractometry automated (U) Cloudy Clear [facility] Urine cocaine detectionOrder ed By: Som Fiore on 04-05-2022 Cocaine Ql (U) Negative Negative [facility] Urine glucose measurement by automated test strip (mass/volume)Ordered By: Som Fiore on 04-05-2022 Glucose Auto test strip (U) [Mass/Vol] Normal mg/dL Normal [facility] Urine hemoglobin detection b y automated test stripOrdered By: Som Fiore on 04-05-2022 Hemoglobin Auto test strip Ql (U) Trace Negative [facility] Urine leukocyte esterase det ection by automated test stripOrdered By: Som Fiore on 04-05-2022 Leukocyte esterase Auto test strip Ql (U) 1+ Negative [facility] Urobilinogen Auto test strip (U) [Mass/Vol]Ordered By: Som Fiore on 04-05-2022 Urobilinogen (U) [Mass/Vol] Normal mg/dL Normal [facility] pH Auto test strip (U)Ordere d By: Som Fiore on 04-05-2022 pH (U) 7.0 [pH] 5.0-9.0 [facility] Urine culture routineOrdered By: Pipe Jose on 04-01-2022 Bacteria identified Cx Nom (U) 2 Days [facility] Automated erythrocytes count in urine sediment (number/area)Ordered By: Pipe Jose on 03-30-2022 RBC Auto (Urine sed) [#/Area] 5-9 [HPF] 0-4 [facility] Automated leukocytes count i n urine sediment (number/area)Ordered By: Pipe Jose on 03-30-2022 WBC Auto (Urine sed) [#/Area] 5-9 [HPF] 0-4 [facility] Basophils Auto (Bld) [#/Vol] Ordered By: Pipe Jose on 03-30-2022 Basophils (Bld) [#/Vol] 0.0 10*3/uL 0.0-0.2 [facility] Basophils/100 WBC Auto (Bld) Ordered By: Pipe Jose on 03-30-2022 Basophils/100 WBC (Bld) 0.4 % . [facility] Bilirubin Test strip Ql (U)O rdered By: Pipe Jose on 03-30-2022 Bilirubin Ql (U) Negative Negative [facility] Blood hemoglobin measurement (mass/volume)Ordered By: Pipe Jose on 03-30-2022 Hemoglobin (Bld) [Mass/Vol] 14.6 g/dL 11.8-15.4 [facility] Blood leukocytes automated c ount (number/volume)Ordered By: Pipe Jose on 03-30-2022 WBC (Bld) [#/Vol] 7.6 10*3/uL 4.5-11.0 [facility] Color Auto (U)Ordered By: Sushma Jose on 03-30-2022 Color (U) Yellow Yellow [facility] Creatinine and Glomerular fi ltration rate.predicted panel (S/P/Bld)Ordered By: Pipe Jose on 03-30-2022 Creatinine [Mass/Vol] 0.80 mg/dL 0.44-1.03 [facility] Eosinophils Auto (Bld) [#/Vo l]Ordered By: Pipe Jose on 03-30-2022 Eosinophils (Bld) [#/Vol] 0.1 10*3/uL 0.0-0.45 [facility] Eosinophils/100 WBC Auto (Bl d)Ordered By: Pipe Jose on 03-30-2022 Eosinophils/100 WBC (Bld) 0.8 % . [facility] Erythrocyte distribution wid th Auto (RBC) [Ratio]Ordered By: Pipe Jose on 03-30-2022 Erythrocyte distribution width (RBC) [Ratio] 14.4 % 11.9-15.3 [facility] Estimated glomerular filtrat ion rate (GFR) non- AmericanOrdered By: Pipe Jose on 03-30-2022 GFR/1.73 sq M.predicted among non-blacks MDRD (S/P/Bld) [Vol rate/Area] > 60 mL/Min [facility] Hematocrit Auto (Bld) [Volum e fraction]Ordered By: Pipe Jose on 03-30-2022 Hematocrit (Bld) [Volume fraction] 43.8 % 34.0-46.4 [facility] Ketones Auto test strip (U) [Mass/Vol]Ordered By: Pipe Jose on 03-30-2022 Ketones (U) [Mass/Vol] Negative Negative [facility] - Hematology and Cell countsOrdered By: Pipe Jose on 03-30-2022 Nucleated RBC/100 WBC (Bld) [Ratio] 0.1 % 0-0.5 [facility] - UrinalysisOrder ed By: Pipe Jose on 03-30-2022 Hyaline casts LM Ql (Urine sed) 0-8 [LPF] 0-8 [facility] Lymphocytes Auto (Bld) [#/Vo l]Ordered By: Pipe Jose on 03-30-2022 Lymphocytes (Bld) [#/Vol] 2.4 10*3/uL 1.00-4.8 [facility] Lymphocytes/100 WBC Auto (Bl d)Ordered By: Pipe Jose on 03-30-2022 Lymphocytes/100 WBC (Bld) 31.6 % . [facility] MCH Auto (RBC) [Entitic mass ]Ordered By: Pipe Jose on 03-30-2022 MCH (RBC) [Entitic mass] 28.9 pg 24.7-34.3 [facility] MCHC Auto (RBC) [Mass/Vol]Or dered By: Pipe Jose on 03-30-2022 MCHC (RBC) [Mass/Vol] 33.4 g/dL 32.0-35.0 [facility] MCV Auto (RBC) [Entitic vol] Ordered By: Pipe Jose on 03-30-2022 MCV (RBC) [Entitic vol] 86.6 fL 80-100 [facility] Monocytes Auto (Bld) [#/Vol] Ordered By: Pipe Jose on 03-30-2022 Monocytes (Bld) [#/Vol] 0.5 10*3/uL 0.0-0.8 [facility] Monocytes/100 WBC Auto (Bld) Ordered By: Pipe Jose on 03-30-2022 Monocytes/100 WBC (Bld) 7.0 % . [facility] Neutrophils Auto (Bld) [#/Vo l]Ordered By: Pipe Jose on 03-30-2022 Neutrophils (Bld) [#/Vol] 4.6 10*3/uL 1.8-7.7 [facility] Neutrophils/100 WBC Auto (Bl d)Ordered By: Pipe Jose on 03-30-2022 Neutrophils/100 WBC (Bld) 60.2 % . [facility] Nitrite Test strip Ql (U)Ord ered By: Pipe Jose on 03-30-2022 Nitrite Ql (U) Negative Negative [facility] No Panel InformationOrdered By: Pipe Jose on 03-30-2022 Estimated GFR () > 60 mL/Min [facility] Comment on above: GFR estimated refere nce range: According to KDOQI guidelines, <60 ml/min/1.73m2 is sufficient to diagnose a patient with chronic kidney disease. Pharmacy Creatinine Clearance (Chem 84.65 [facility] Platelet mean volume Auto (B ld) [Entitic vol]Ordered By: Pipe Jose on 03-30-2022 Platelet mean volume (Bld) [Entitic vol] 8.4 fL 6.3-10.7 [facility] Platelets Auto (Bld) [#/Vol] Ordered By: Pipe Jose on 03-30-2022 Platelets (Bld) [#/Vol] 286 10*3/uL 150-450 [facility] Protein Auto test strip (U) [Mass/Vol]Ordered By: Pipe Jose on 03-30-2022 Protein (U) [Mass/Vol] Negative Negative [facility] RBC Auto (Bld) [#/Vol]Ordere d By: Pipe Jose on 03-30-2022 RBC (Bld) [#/Vol] 5.05 10*6/uL 3.60-5.00 [facility] Serum or plasma anion gap de terminationOrdered By: Pipe Jose on 03-30-2022 Anion gap [Moles/Vol] 15.0 mmol/L 6.0-15.0 [facility] Serum or plasma calcium randi urement (mass/volume)Ordered By: Pipe Jose on 03-30-2022 Calcium [Mass/Vol] 9.9 mg/dL 8.2-10.2 [facility] Serum or plasma chloride melonie surement (moles/volume)Ordered By: Pipe Jose on 03-30-2022 Chloride [Moles/Vol] 100 mmol/L 95-114 [facility] Serum or plasma glucose randi urement (mass/volume)Ordered By: Pipe Jose on 03-30-2022 Glucose [Mass/Vol] 104 mg/dL 70-100 [facility] Comment on above: ADA recommended refe rence rangeRandom Glucose Reference Range is dependent on time and content of last meal. Glucose of more than 200 mg/dL in a nonstressed, ambulatory subject supports the diagnosis of Diabetes Mellitus. Serum or plasma potassium me asurement (moles/volume)Ordered By: Pipe Jose on 03-30-2022 Potassium [Moles/Vol] 4.1 mmol/L 3.5-5.1 [facility] Serum or plasma sodium measu rement (moles/volume)Ordered By: Pipe Jose on 03-30-2022 Sodium [Moles/Vol] 138 mmol/L 136-146 [facility] Serum or plasma total carbon dioxide measurement (moles/volume)Ordered By: Pipe Jose on 03-30-2022 CO2 [Moles/Vol] 27.1 mmol/L 22.0-30.0 [facility] Serum or plasma urea nitroge n measurement (mass/volume)Ordered By: Pipe Jose on 03-30-2022 Urea nitrogen [Mass/Vol] 10 mg/dL 03-19 [facility] Specific gravity Auto test s trip (U) [Rel density]Ordered By: Pipe Jose on 03-30-2022 Specific gravity (U) [Rel density] 1.007 1.001-1.03 0 [facility] Squamous epithelial cells de tection in urine sediment by light microscopyOrdered By: Pipe Jose on 03-30-2022 Epithelial cells.squamous LM Ql (Urine sed) 3-4 [HPF] 0-2 [facility] Urine bacteria detection by automated methodOrdered By: Pipe Jose on 03-30-2022 Bacteria Auto Ql (U) 1+ None Seen [facility] Urine clarity by refractomet ry automatedOrdered By: Pipe Jose on 03-30-2022 Clarity Refractometry automated (U) Clear Clear [facility] Urine glucose measurement by automated test strip (mass/volume)Ordered By: Pipe Jose on 03-30-2022 Glucose Auto test strip (U) [Mass/Vol] Normal mg/dL Normal [facility] Urine hemoglobin detection b y automated test stripOrdered By: Pipe Jose on 03-30-2022 Hemoglobin Auto test strip Ql (U) Negative Negative [facility] Urine leukocyte esterase det ection by automated test stripOrdered By: Pipe Jose on 03-30-2022 Leukocyte esterase Auto test strip Ql (U) 1+ Negative [facility] Urobilinogen Auto test strip (U) [Mass/Vol]Ordered By: Pipe Jose on 03-30-2022 Urobilinogen (U) [Mass/Vol] Normal mg/dL Normal [facility] pH Auto test strip (U)Ordere d By: Pipe Jose on 03-30-2022 pH (U) 7.5 [pH] 5.0-9.0 [facility] Albumin [Mass/volume] in Ser um or PlasmaOrdered By: Los Mcnally on 03-19-2022 Albumin [Mass/Vol] 4.8 g/dL 3.2-5.5 [facility] Basophils Auto (Bld) [#/Vol] Ordered By: Los Mcnally on 03-19-2022 Basophils (Bld) [#/Vol] 0.0 10*3/uL 0.0-0.2 [facility] Basophils/100 WBC Auto (Bld) Ordered By: Los Mcnally on 03-19-2022 Basophils/100 WBC (Bld) 0.6 % . [facility] Blood hemoglobin measurement (mass/volume)Ordered By: Los Mcnally on 03-19-2022 Hemoglobin (Bld) [Mass/Vol] 14.3 g/dL 11.8-15.4 [facility] Blood leukocytes automated c ount (number/volume)Ordered By: Los Mcnally on 03-19-2022 WBC (Bld) [#/Vol] 7.5 10*3/uL 4.5-11.0 [facility] Creatinine and Glomerular fi ltration rate.predicted panel (S/P/Bld)Ordered By: Los Mcnally on 03-19-2022 Creatinine [Mass/Vol] 0.91 mg/dL 0.44-1.03 [facility] Eosinophils Auto (Bld) [#/Vo l]Ordered By: Los Mcnally on 03-19-2022 Eosinophils (Bld) [#/Vol] 0.1 10*3/uL 0.0-0.45 [facility] Eosinophils/100 WBC Auto (Bl d)Ordered By: Los Mcnally on 03-19-2022 Eosinophils/100 WBC (Bld) 1.4 % . [facility] Erythrocyte distribution wid th Auto (RBC) [Ratio]Ordered By: Los Mcnally on 03-19-2022 Erythrocyte distribution width (RBC) [Ratio] 14.9 % 11.9-15.3 [facility] Estimated glomerular filtrat ion rate (GFR) non- AmericanOrdered By: Los Mcnally on 03-19-2022 GFR/1.73 sq M.predicted among non-blacks MDRD (S/P/Bld) [Vol rate/Area] > 60 mL/Min [facility] Globulin Calc (S) [Mass/Vol] Ordered By: Los Mcnally on 03-19-2022 Globulin (S) [Mass/Vol] 3.6 g/dL [facility] Hematocrit Auto (Bld) [Volum e fraction]Ordered By: Los Mcnally on 03-19-2022 Hematocrit (Bld) [Volume fraction] 43.6 % 34.0-46.4 [facility] - Hematology and Cell countsOrdered By: Los Mcnally on 03-19-2022 Nucleated RBC/100 WBC (Bld) [Ratio] 0.0 % 0-0.5 [facility] Lymphocytes Auto (Bld) [#/Vo l]Ordered By: Los Mcnally on 03-19-2022 Lymphocytes (Bld) [#/Vol] 2.6 10*3/uL 1.00-4.8 [facility] Lymphocytes/100 WBC Auto (Bl d)Ordered By: Los Mcnally on 03-19-2022 Lymphocytes/100 WBC (Bld) 34.0 % . [facility] MCH Auto (RBC) [Entitic mass ]Ordered By: Los Mcnally on 03-19-2022 MCH (RBC) [Entitic mass] 29.1 pg 24.7-34.3 [facility] MCHC Auto (RBC) [Mass/Vol]Or dered By: Los Mcnally on 03-19-2022 MCHC (RBC) [Mass/Vol] 32.8 g/dL 32.0-35.0 [facility] MCV Auto (RBC) [Entitic vol] Ordered By: Los Mcnally on 03-19-2022 MCV (RBC) [Entitic vol] 88.6 fL 80-100 [facility] Monocytes Auto (Bld) [#/Vol] Ordered By: Los Mcnally on 03-19-2022 Monocytes (Bld) [#/Vol] 0.5 10*3/uL 0.0-0.8 [facility] Monocytes/100 WBC Auto (Bld) Ordered By: Los Mcnally on 03-19-2022 Monocytes/100 WBC (Bld) 6.9 % . [facility] Neutrophils Auto (Bld) [#/Vo l]Ordered By: Los Mcnally on 03-19-2022 Neutrophils (Bld) [#/Vol] 4.3 10*3/uL 1.8-7.7 [facility] Neutrophils/100 WBC Auto (Bl d)Ordered By: Los Mcnally on 03-19-2022 Neutrophils/100 WBC (Bld) 57.1 % . [facility] No Panel InformationOrdered By: Los Mcnally on 03-19-2022 Estimated GFR () > 60 mL/Min [facility] Comment on above: GFR estimated refere nce range: According to KDOQI guidelines, <60 ml/min/1.73m2 is sufficient to diagnose a patient with chronic kidney disease. Pharmacy Creatinine Clearance (Chem 74.41 [facility] Platelet mean volume Auto (B ld) [Entitic vol]Ordered By: Los Mcnally on 03-19-2022 Platelet mean volume (Bld) [Entitic vol] 8.9 fL 6.3-10.7 [facility] Platelets Auto (Bld) [#/Vol] Ordered By: Los Mcnally on 03-19-2022 Platelets (Bld) [#/Vol] 266 10*3/uL 150-450 [facility] Prolactin [Mass/volume] in S alexis or PlasmaOrdered By: Los Mcnally on 03-19-2022 Prolactin [Mass/Vol] 18.55 ng/mL 3.34-26.72 [facility] Protein [Mass/volume] in Ser um or PlasmaOrdered By: Los Mcnally on 03-19-2022 Protein [Mass/Vol] 8.4 g/dL 6.1-7.9 [facility] RBC Auto (Bld) [#/Vol]Ordere d By: Los Mcnally on 03-19-2022 RBC (Bld) [#/Vol] 4.92 10*6/uL 3.60-5.00 [facility] Serum or plasma alanine white otransferase measurement without P-5'-P (enzymatic activiOrdered By: Los Mcnally on 03-19-2022 ALT No additional P-5'-P [Catalytic activity/Vol] 11 U/L 10-60 [facility] Serum or plasma albumin/glob ulin mass ratioOrdered By: Los Mcnally on 03-19-2022 Albumin/Globulin [Mass ratio] 1.3 {ratio} [facility] Serum or plasma alkaline ignacio sphatase measurement (enzymatic activity/volume)Ordered By: Los Mcnally on 03-19-2022 ALP [Catalytic activity/Vol] 51 U/L 32-92 [facility] Serum or plasma anion gap de terminationOrdered By: Los Mcnally on 03-19-2022 Anion gap [Moles/Vol] 17.7 mmol/L 6.0-15.0 [facility] Serum or plasma aspartate am inotransferase measurement (enzymatic activity/volume)Ordered By: Los Mcnally on 03-19-2022 AST [Catalytic activity/Vol] 22 U/L 10-42 [facility] Serum or plasma calcium randi urement (mass/volume)Ordered By: Los Mcnally on 03-19-2022 Calcium [Mass/Vol] 9.8 mg/dL 8.2-10.2 [facility] Serum or plasma chloride melonie surement (moles/volume)Ordered By: Los Mcnally on 03-19-2022 Chloride [Moles/Vol] 101 mmol/L 95-114 [facility] Serum or plasma glucose randi urement (mass/volume)Ordered By: Los Mcnally on 03-19-2022 Glucose [Mass/Vol] 83 mg/dL 70-100 [facility] Comment on above: ADA recommended refe [...] on 03-19-2022 Potassium [Moles/Vol] 3.7 mmol/L 3.5-5.1 [facility] Serum or plasma sodium measu rement (moles/volume)Ordered By: Los Mcnally on 03-19-2022 Sodium [Moles/Vol] 138 mmol/L 136-146 [facility] Serum or plasma total biliru bin measurement (mass/volume)Ordered By: Los Mcnally on 03-19-2022 Bilirubin [Mass/Vol] 0.7 mg/dL 0.3-1.2 [facility] Serum or plasma total carbon dioxide measurement (moles/volume)Ordered By: Los Mcnally on 03-19-2022 CO2 [Moles/Vol] 23.0 mmol/L 22.0-30.0 [facility] Serum or plasma urea nitroge n measurement (mass/volume)Ordered By: Los Mcnally on 03-19-2022 Urea nitrogen [Mass/Vol] 8 mg/dL 03-19 [facility] Albumin [Mass/volume] in Ser um or PlasmaOrdered By: Tommy Bowen on 02-25-2022 Albumin [Mass/Vol] 4.1 g/dL 3.2-5.5 [facility] Basophils Auto (Bld) [#/Vol] Ordered By: Tommy Bowen on 02-25-2022 Basophils (Bld) [#/Vol] 0.0 10*3/uL 0.0-0.2 [facility] Basophils/100 WBC Auto (Bld) Ordered By: Tommy Bowen on 02-25-2022 Basophils/100 WBC (Bld) 0.5 % . [facility] Blood hemoglobin measurement (mass/volume)Ordered By: Tommy Bowen on 02-25-2022 Hemoglobin (Bld) [Mass/Vol] 13.4 g/dL 11.8-15.4 [facility] Blood leukocytes automated c ount (number/volume)Ordered By: Tommy Bowen on 02-25-2022 WBC (Bld) [#/Vol] 8.0 10*3/uL 4.5-11.0 [facility] Creatinine and Glomerular fi ltration rate.predicted panel (S/P/Bld)Ordered By: Tommy Bowen on 02-25-2022 Creatinine [Mass/Vol] 0.75 mg/dL 0.44-1.03 [facility] Eosinophils Auto (Bld) [#/Vo l]Ordered By: Tommy Bowen on 02-25-2022 Eosinophils (Bld) [#/Vol] 0.1 10*3/uL 0.0-0.45 [facility] Eosinophils/100 WBC Auto (Bl d)Ordered By: Tommy Bowen on 02-25-2022 Eosinophils/100 WBC (Bld) 0.6 % . [facility] Erythrocyte distribution wid th Auto (RBC) [Ratio]Ordered By: Tommy Bowen on 02-25-2022 Erythrocyte distribution width (RBC) [Ratio] 14.2 % 11.9-15.3 [facility] Estimated glomerular filtrat ion rate (GFR) non- AmericanOrdered By: Tommy Bowen on 02-25-2022 GFR/1.73 sq M.predicted among non-blacks MDRD (S/P/Bld) [Vol rate/Area] > 60 mL/Min [facility] Globulin Calc (S) [Mass/Vol] Ordered By: Tommy Bowen on 02-25-2022 Globulin (S) [Mass/Vol] 3.2 g/dL [facility] Hematocrit Auto (Bld) [Volum e fraction]Ordered By: Tommy Bowen on 02-25-2022 Hematocrit (Bld) [Volume fraction] 41.0 % 34.0-46.4 [facility] - Hematology and Cell countsOrdered By: Tommy Bowen on 02-25-2022 Nucleated RBC/100 WBC (Bld) [Ratio] 0.0 % 0-0.5 [facility] Lymphocytes Auto (Bld) [#/Vo l]Ordered By: Tommy Bowen on 02-25-2022 Lymphocytes (Bld) [#/Vol] 2.0 10*3/uL 1.00-4.8 [facility] Lymphocytes/100 WBC Auto (Bl d)Ordered By: Tommy Bowen on 02-25-2022 Lymphocytes/100 WBC (Bld) 25.6 % . [facility] MCH Auto (RBC) [Entitic mass ]Ordered By: Tommy Bowen on 02-25-2022 MCH (RBC) [Entitic mass] 28.7 pg 24.7-34.3 [facility] MCHC Auto (RBC) [Mass/Vol]Or dered By: Tommy Bowen on 02-25-2022 MCHC (RBC) [Mass/Vol] 32.7 g/dL 32.0-35.0 [facility] MCV Auto (RBC) [Entitic vol] Ordered By: Tommy Bowen on 02-25-2022 MCV (RBC) [Entitic vol] 87.8 fL 80-100 [facility] Monocytes Auto (Bld) [#/Vol] Ordered By: Tommy Bowen on 02-25-2022 Monocytes (Bld) [#/Vol] 0.6 10*3/uL 0.0-0.8 [facility] Monocytes/100 WBC Auto (Bld) Ordered By: Tommy Bowen on 02-25-2022 Monocytes/100 WBC (Bld) 7.4 % . [facility] Neutrophils Auto (Bld) [#/Vo l]Ordered By: Tommy Bowen on 02-25-2022 Neutrophils (Bld) [#/Vol] 5.2 10*3/uL 1.8-7.7 [facility] Neutrophils/100 WBC Auto (Bl d)Ordered By: Tommy Bowen on 02-25-2022 Neutrophils/100 WBC (Bld) 65.9 % . [facility] No Panel InformationOrdered By: Tommy Bowen on 02-25-2022 Estimated GFR () > 60 mL/Min [facility] Comment on above: GFR estimated refere nce range: According to KDOQI guidelines, <60 ml/min/1.73m2 is sufficient to diagnose a patient with chronic kidney disease. Pharmacy Creatinine Clearance (Chem 94.82 [facility] Platelet mean volume Auto (B ld) [Entitic vol]Ordered By: Tommy Bowen on 02-25-2022 Platelet mean volume (Bld) [Entitic vol] 8.1 fL 6.3-10.7 [facility] Platelets Auto (Bld) [#/Vol] Ordered By: Tommy Bowen on 02-25-2022 Platelets (Bld) [#/Vol] 260 10*3/uL 150-450 [facility] Protein [Mass/volume] in Ser um or PlasmaOrdered By: Tommy Bowen on 02-25-2022 Protein [Mass/Vol] 7.3 g/dL 6.1-7.9 [facility] RBC Auto (Bld) [#/Vol]Ordere d By: Tommy Bowen on 02-25-2022 RBC (Bld) [#/Vol] 4.67 10*6/uL 3.60-5.00 [facility] Serum or plasma alanine white otransferase measurement without P-5'-P (enzymatic activiOrdered By: Tommy Bowen on 02-25-2022 ALT No additional P-5'-P [Catalytic activity/Vol] 11 U/L 10-60 [facility] Serum or plasma albumin/glob ulin mass ratioOrdered By: Tommy Bowen on 02-25-2022 Albumin/Globulin [Mass ratio] 1.3 {ratio} [facility] Serum or plasma alkaline ignacio sphatase measurement (enzymatic activity/volume)Ordered By: Tommy Bowen on 02-25-2022 ALP [Catalytic activity/Vol] 52 U/L 32-92 [facility] Serum or plasma anion gap de terminationOrdered By: Tommy Bowen on 02-25-2022 Anion gap [Moles/Vol] 13.5 mmol/L 6.0-15.0 [facility] Serum or plasma aspartate am inotransferase measurement (enzymatic activity/volume)Ordered By: Tommy Bowen on 02-25-2022 AST [Catalytic activity/Vol] 18 U/L 10-42 [facility] Serum or plasma calcium randi urement (mass/volume)Ordered By: Tommy Bowen on 02-25-2022 Calcium [Mass/Vol] 9.6 mg/dL 8.2-10.2 [facility] Serum or plasma chloride melonie surement (moles/volume)Ordered By: Tommy Bowen on 02-25-2022 Chloride [Moles/Vol] 101 mmol/L 95-114 [facility] Serum or plasma glucose randi urement (mass/volume)Ordered By: Tommy Bowen on 02-25-2022 Glucose [Mass/Vol] 98 mg/dL 70-100 [facility] Comment on above: ADA recommended refe [...] on 02-25-2022 Potassium [Moles/Vol] 4.0 mmol/L 3.5-5.1 [facility] Serum or plasma sodium measu rement (moles/volume)Ordered By: Tommy Bowen on 02-25-2022 Sodium [Moles/Vol] 139 mmol/L 136-146 [facility] Serum or plasma total biliru bin measurement (mass/volume)Ordered By: Tommy Bowen on 02-25-2022 Bilirubin [Mass/Vol] 0.6 mg/dL 0.3-1.2 [facility] Serum or plasma total carbon dioxide measurement (moles/volume)Ordered By: Tommy Bowen on 02-25-2022 CO2 [Moles/Vol] 28.5 mmol/L 22.0-30.0 [facility] Serum or plasma urea nitroge n measurement (mass/volume)Ordered By: Tomym Bowen on 02-25-2022 Urea nitrogen [Mass/Vol] 7 mg/dL 9-23 [facility] CBC AUTO DIFFon 01-03-2022 BASO # 0.0 103/ul Normal 0.0-0.1 [facility] Comment on above: Performed By: #### C BC #### [facility] [address] [address] [address] Jovanni Maya Basophils/100 WBC (Bld) 0.2 % Normal 0.2-2.0 [facility] Comment on above: Performed By: #### C BC #### [facility] [address] [address] [address] Jovanni Maya EO # 0.0 103/ul Normal 0.0-0.7 [facility] Comment on above: Performed By: #### C BC #### [facility] [address] [address] [address] Jovanni Maya Eosinophils/100 WBC (Bld) 0.1 % Critically low 0.9-7.0 [facility] Comment on above: Performed By: #### C BC #### [facility] [address] [place] [address] Dr. Jovanni Maya Erythrocyte distribution width (RBC) [Ratio] 12.4 % Normal 11.0-15.0 [facility] Comment on above: Performed By: #### C BC #### [facility] [address] [place] [address] Dr. Jovanni Maya Hematocrit (Bld) [Volume fraction] 39.2 % Normal 36.0-48.0 [facility] Comment on above: Performed By: #### C BC #### [facility] [address] [place] [address] Dr. Jovanni Maya Hemoglobin (Bld) [Mass/Vol] 13.1 g/dL Normal 12.0-16.0 [facility] Comment on above: Performed By: #### C BC #### [facility] [address] [place] [address] Dr. Jovanni Maya IG # 0.05 10e3/ul Critically high 0.00-0.03 [facility] Comment on above: Performed By: #### C BC #### [facility] [address] [place] [address] Dr. Jovanni Maya IG % 0.3 % Normal 0.0-0.5 [facility] Comment on above: Performed By: #### C BC #### [facility] [address] [place] [address] Dr. Jovanni Maya LYMPH # 2.1 103/ul Normal 1.2-3.8 [facility] Comment on above: Performed By: #### C BC #### [facility] [address] [place] [address] Dr. Jovanni Maya Lymphocytes/100 WBC (Bld) 14.3 % Critically low 20.5-60.0 [facility] Comment on above: Performed By: #### C BC #### [facility] [address] [place] [address] Dr. Jovanni Maya MANUAL DIFF REQ NO Normal [facility] Comment on above: Performed By: #### C BC #### [facility] [address] [place] [address] Dr. Jovanni Maya MCH (RBC) [Entitic mass] 29.4 pg Normal 26.7-34.0 [facility] Comment on above: Performed By: #### C BC #### [facility] [address] [address] [address] Jovanni Maya MCHC (RBC) [Mass/Vol] 33.4 g/dL Normal 29.9-35.2 [facility] Comment on above: Performed By: #### C BC #### [facility] [address] [address] [address] Jovanni Maya MCV (RBC) [Entitic vol] 87.9 fL Normal 81.0-99.0 [facility] Comment on above: Performed By: #### C BC #### [facility] [address] [place] [address] Dr. Jovanni Maya MONO # 1.3 103/ul Critically high 0.3-0.8 [facility] Comment on above: Performed By: #### C BC #### [facility] [address] [place] [address] Dr. Jovanni Maya Monocytes/100 WBC (Bld) 8.4 % Normal 1.7-12.0 [facility] Comment on above: Performed By: #### C BC #### [facility] [address] [place] [address] Dr. Jovanni Maya NEUT # 11.4 103/ul Critically high 1.4-6.5 [facility] Comment on above: Performed By: #### C BC #### [facility] [address] [place] [address] Dr. Jovanni Maya Neutrophils/100 WBC (Bld) 76.7 % Critically high 43.0-75.0 [facility] Comment on above: Performed By: #### C BC #### [facility] [address] [place] [address] Dr. Jovanni Maya Platelet mean volume (Bld) [Entitic vol] 9.4 fL Critically low 9.5-13.5 [facility] Comment on above: Performed By: #### C BC #### [facility] [address] [place] [address] Dr. Jovanni Maya PLT 276 103/ul Normal 150-450 [facility] Comment on above: Performed By: #### C BC #### [facility] [address] [place] [address] Dr. Jovanni Maya RBC 4.46 106/ul Normal 4.20-5.40 [facility] Comment on above: Performed By: #### C BC #### [facility] [address] [place] [address] Dr. Jovanni Maya WBC 14.9 103/ul Critically high 4.0-11.0 [facility] Comment on above: Performed By: #### C BC #### [facility] [address] [place] [address] Dr. Jovanni Maya PROF CHEM 8 (BAS METB)on Anion gap [Moles/Vol] 14.2 mmol/L Normal [facility] Comment on above: Performed By: #### P REG, ACETON #### [facility] [address] [place] [address] Dr. Jovanni Maya Calcium [Mass/Vol] 9.3 mg/dL Normal 8.5-10.1 [facility] Comment on above: Performed By: #### P REG, ACETON #### [facility] [address] [place] [address] Dr. Jovanni Maya Chloride [Moles/Vol] 103 mmol/L Normal 98-107 [facility] Comment on above: Performed By: #### P REG, ACETON #### [facility] [address] [place] [address] Dr. Jovanni Maya CO2 [Moles/Vol] 26.6 mmol/L Normal 21.0-32.0 [facility] Comment on above: Performed By: #### P REG, ACETON #### [facility] [address] [place] [address] Dr. Jovanin Maya Creatinine [Mass/Vol] 0.80 mg/dL Normal 0.55-1.02 [facility] Comment on above: Performed By: #### P REG, ACETON #### [facility] [address] [address] [address] Jovanni Maya EGFR-AF [place] >60 Normal >=60 [facility] Comment on above: Performed By: #### P REG, ACETON #### [facility] [address] [address] [address] Jovanni Maya EGFR-NON AF [place] >60 Normal >=60 [facility] Comment on above: Performed By: #### P REG, ACETON #### [facility] [address] [address] [address] Jovanni Maya Glucose [Mass/Vol] 118 mg/dL Critically high 74-106 [facility] Comment on above: Performed By: #### P REG, ACETON #### [facility] [address] [address] [address] Jovanni Maya Potassium [Moles/Vol] 3.8 mmol/L Normal 3.5-5.1 [facility] Comment on above: Performed By: #### P REG, ACETON #### [facility] [address] [address] [address] Jovanni Maya Sodium [Moles/Vol] 140 mmol/L Normal 136-145 [facility] Comment on above: Performed By: #### P REG, ACETON #### [facility] [address] [address] [address] Jovanni Maya Urea nitrogen [Mass/Vol] 12.0 mg/dL Normal 7.0-18.0 [facility] Comment on above: Performed By: #### P REG, ACETON #### [facility] [address] [place] [address] Dr. Jovanni Maya Urea nitrogen/Creatinine [Mass ratio] 15.0 mg/mg Normal [facility] Comment on above: Performed By: #### P REG, ACETON #### [facility] [address] [place] [address] Dr. Jovanni Maya XR CHEST 2 Von [...] FRED COLE Date: 2022-01-03 01:30 Normal [facility] CBC AUTO DIFFon 11-29-2021 BASO # 0.0 103/ul Normal 0.0-0.1 [facility] Comment on above: Performed By: #### C MP, HSTROPN #### [facility] [address] [place] [address] Dr. Jovanni Maya Basophils/100 WBC (Bld) 0.2 % Normal 0.2-2.0 [facility] Comment on above: Performed By: #### C MP, HSTROPN #### [facility] [address] [place] [address] Dr. Jovanni Maya EO # 0.2 103/ul Normal 0.0-0.7 [facility] Comment on above: Performed By: #### C MP, HSTROPN #### [facility] [address] [place] [address] Dr. Jovanni Maya Eosinophils/100 WBC (Bld) 3.2 % Normal 0.9-7.0 [facility] Comment on above: Performed By: #### C MP, HSTROPN #### [facility] [address] [place] [address] Dr. Jovanni Maya Erythrocyte distribution width (RBC) [Ratio] 12.2 % Normal 11.0-15.0 [facility] Comment on above: Performed By: #### C MP, HSTROPN #### [facility] [address] [place] [address] Dr. Jovanni Maya Hematocrit (Bld) [Volume fraction] 34.3 % Critically low 36.0-48.0 [facility] Comment on above: Performed By: #### C MP, HSTROPN #### [facility] [address] [place] [address] Dr. Jovanni Maya Hemoglobin (Bld) [Mass/Vol] 11.4 g/dL Critically low 12.0-16.0 [facility] Comment on above: Performed By: #### C DANIEL, HSTROPN #### [facility] [address] [place] [address] Dr. Jovanni Maya IG # 0.01 10e3/ul Normal 0.00-0.03 [facility] Comment on above: Performed By: #### C MP, HSTROPN #### [facility] [address] [place] [address] Dr. Jovanni Maya IG % 0.2 % Normal 0.0-0.5 [facility] Comment on above: Performed By: #### C DANIEL, HSTROPN #### [facility] [address] [place] [address] Dr. Jovanni Maya LYMPH # 2.5 103/ul Normal 1.2-3.8 [facility] Comment on above: Performed By: #### C DANIEL, HSTROPN #### [facility] [address] [place] [address] Dr. Jovanni Maya Lymphocytes/100 WBC (Bld) 38.1 % Normal 20.5-60.0 [facility] Comment on above: Performed By: #### C DANIEL, HSTROPN #### [facility] [address] [place] [address] Dr. Jovanni Maya MANUAL DIFF REQ NO Normal [facility] Comment on above: Performed By: #### C DANIEL, HSTROPN #### [facility] [address] [place] [address] Dr. Jovanni Maya MCH (RBC) [Entitic mass] 29.6 pg Normal 26.7-34.0 [facility] Comment on above: Performed By: #### C MP, HSTROPN #### [facility] [address] [place] [address] Dr. Jovanni Maya MCHC (RBC) [Mass/Vol] 33.2 g/dL Normal 29.9-35.2 [facility] Comment on above: Performed By: #### C DANIEL, HSTROPN #### [facility] [address] [place] [address] Dr. Jovanni Maya MCV (RBC) [Entitic vol] 89.1 fL Normal 81.0-99.0 [facility] Comment on above: Performed By: #### C MP, HSTROPN #### [facility] [address] [place] [address] Dr. Jovanni Maya MONO # 0.7 103/ul Normal 0.3-0.8 [facility] Comment on above: Performed By: #### C MP, HSTROPN #### [facility] [address] [place] [address] Dr. Jovanni Maya Monocytes/100 WBC (Bld) 10.2 % Normal 1.7-12.0 [facility] Comment on above: Performed By: #### C MP, HSTROPN #### [facility] [address] [place] [address] Dr. Jovanni Maya NEUT # 3.2 103/ul Normal 1.4-6.5 [facility] Comment on above: Performed By: #### C MP, HSTROPN #### [facility] [address] [place] [address] Dr. Jovanni Maya Neutrophils/100 WBC (Bld) 48.1 % Normal 43.0-75.0 [facility] Comment on above: Performed By: #### C MP, HSTROPN #### [facility] [address] [place] [address] Dr. Jovanni Maya Platelet mean volume (Bld) [Entitic vol] 9.8 fL Normal 9.5-13.5 [facility] Comment on above: Performed By: #### C MP, HSTROPN #### [facility] Laboratory [address] [place] [address] Dr. Jovanni Maya PLT 222 103/ul Normal 150-450 [facility] Comment on above: Performed By: #### C MP, HSTROPN #### [facility] [address] [place] [address] Dr. Jovanni Maya RBC 3.85 106/ul Critically low 4.20-5.40 [facility] Comment on above: Performed By: #### C DANIEL, HSTROPN #### [facility] [address] [place] [address] Dr. Jovanni Maya WBC 6.5 103/ul Normal 4.0-11.0 [facility] Comment on above: Performed By: #### C DANIEL, HSTROPN #### [facility] [address] [place] [address] Dr. Jovanni Maya CULTURE URINEon 11-29-2021 CULTURE URINE Culture Observations : LIGHT GROWTH OF MIXED GENITAL ZANDER. NO POTENTIAL PATHOGENS SEEN. Normal [facility] Comment on above: Performed By: #### C DANIEL, HSTROPN #### [facility] [address] [place] [address] Dr. Jovanni Maya DRUG SCREEN RAPID (URINE)on 11-29-2021 AMP Negative Normal NEGATIVE [facility] Comment on above: Performed By: #### P REG, ACETON #### [facility] [address] [place] [address] Dr. Jovanni Maya BAR Negative Normal NEGATIVE [facility] Comment on above: Performed By: #### P REG, ACETON #### [facility] [address] [place] [address] Dr. Jovanni Maya BUP Negative Normal NEGATIVE [facility] Comment on above: Performed By: #### P REG, ACETON #### [facility] [address] [place] [address] Dr. Jovanni Maya BZO Positive Abnormal NEGATIVE [facility] Comment on above: Performed By: #### P REG, ACETON #### [facility] [address] [place] [address] Dr. Jovanni Maya DARIEN Negative Normal NEGATIVE [facility] Comment on above: Performed By: #### P REG, ACETON #### [facility] [address] [place] [address] Dr. Jovanni Maya CUT-OFFS SEE BELOW Normal [facility] Comment on above: Result Comment: AMP [...] Performed By: #### P REG, ACETON #### [facility] [address] [place] [address] Dr. Jovanni Maya DRUG CUT HEADER DRUG CLASS TEST SYST EM CUT-OFF CONCENTRATIONS ARE FOLLOWS: Normal [facility] Comment on above: Performed By: #### P REG, ACETON #### [facility] [address] [place] [address] Dr. Jovanni Maya mAMP Negative Normal NEGATIVE [facility] Comment on above: Performed By: #### P REG, ACETON #### [facility] [address] [place] [address] Dr. Jovanni Maya MTD Negative Normal NEGATIVE [facility] Comment on above: Performed By: #### P REG, ACETON #### [facility] [address] [place] [address] Dr. Jovanni Maya OPI Negative Normal NEGATIVE [facility] Comment on above: Performed By: #### P REG, ACETON #### [facility] [address] [place] [address] Dr. Jovanni Maya OXY Positive Abnormal NEGATIVE [facility] Comment on above: Performed By: #### P REG, ACETON #### [facility] [address] [place] [address] Dr. Jovanni Maya PCP Negative Normal NEGATIVE [facility] Comment on above: Performed By: #### P REG, ACETON #### [facility] [address] [place] [address] Dr. Jovanni Maya PPX Negative Normal NEGATIVE [facility] Comment on above: Performed By: #### P REG, ACETON #### [facility] [address] [place] [address] Dr. Jovanni Maya TCA Negative Normal NEGATIVE [facility] Comment on above: Performed By: #### P REG, ACETON #### [facility] [address] [place] [address] Dr. Jovanni Maya THC Positive Abnormal NEGATIVE [facility] Comment on above: Performed By: #### P REG, ACETON #### [facility] [address] [address] [address] Jovanni Maya ER URINE PROFILEon 2 Bilirubin Ql (U) SMALL Abnormal NEGATIVE [facility] Comment on above: Performed By: #### P REG, ACETON #### [facility] [address] [place] [address] Dr. Jovanni Maya Clarity (U) CLEAR Normal CLEAR [facility] Comment on above: Performed By: #### P REG, ACETON #### [facility] [address] [place] [address] Dr. Jovanni Maya Color (U) BROWN Abnormal YELLOW [facility] Comment on above: Performed By: #### P REG, ACETON #### [facility] [address] [place] [address] Dr. Jovanni Maya ERUAHD A micrscopic examina tion will be performed if indicated. Normal [facility] Comment on above: Performed By: #### P REG, ACETON #### [facility] [address] [place] [address] Dr. Jovanni Maya Glucose Ql (U) Negative Normal NEGATIVE [facility] Comment on above: Performed By: #### P REG, ACETON #### [facility] [address] [place] [address] Dr. Jovanni Maya Hemoglobin Ql (U) LARGE Abnormal NEGATIVE [facility] Comment on above: Performed By: #### P REG, ACETON #### [facility] [address] [place] [address] Dr. Jovanni Maya Ketones Ql (U) Negative Normal NEGATIVE [facility] Comment on above: Performed By: #### P REG, ACETON #### [facility] [address] [place] [address] Dr. Jovanni Maya LEUKOCYTES MODERATE Abnormal NEGATIVE [facility] Comment on above: Performed By: #### P REG, ACETON #### [facility] [address] [place] [address] Dr. Jovanni Maya Nitrite Ql (U) Negative Normal NEGATIVE [facility] Comment on above: Performed By: #### P REG, ACETON #### [facility] [address] [place] [address] Dr. Jovanni Maya pH (U) 6.0 [pH] Normal 5-9 [facility] Comment on above: Performed By: #### P REG, ACETON #### [facility] [address] [place] [address] Dr. Jovanni Maya Protein (U) [Mass/Vol] 100 mg/dL Abnormal NEGAT BRUNO/ TRACE [facility] Comment on above: Performed By: #### P REG, ACETON #### [facility] [address] [place] [address] Dr. Jovanni Maya SPEC GRAVITY 1.025 Normal 1.005-<=1. 025 [facility] Comment on above: Performed By: #### P REG, ACETON #### [facility] [address] [place] [address] Dr. Jovanni Maya UR MICRO IND INDICATED Normal [facility] Comment on above: Performed By: #### P REG, ACETON #### [facility] [address] [place] [address] Dr. Jovanni Maya Urobilinogen Qn (U) 1.0 {Carlos A'U}/dL Normal 0.2 - 1. 0 [facility] Comment on above: Performed By: #### P REG, ACETON #### [facility] [address] [place] [address] Dr. Jovanni Maya LACTATE/LACTIC ACIDon 2021 Lactate [Moles/Vol] 1.2 mmol/L Normal 0.4-1.9 [facility] Comment on above: Performed By: #### L ACT #### [facility] [address] [address] [address] Jovanni Maya URon 11-29-2021 , QUAL Negative Normal NEGATIVE [facility] Comment on above: Performed By: #### P REG, ACETON #### [facility] [address] [address] [address] Jovanni Maya PROF CHEM 8 (BAS METB)on Anion gap [Moles/Vol] 11.0 mmol/L Normal [facility] Comment on above: Performed By: #### C MP, HSTROPN #### [facility] [address] [address] [address] Jovanni Maya Calcium [Mass/Vol] 8.7 mg/dL Normal 8.5-10.1 [facility] Comment on above: Performed By: #### C MP, HSTROPN #### [facility] [address] [place] [address] Dr. Jovanni Maya Chloride [Moles/Vol] 105 mmol/L Normal 98-107 [facility] Comment on above: Performed By: #### C MP, HSTROPN #### [facility] [address] [address] [address] Jovanni Maya CO2 [Moles/Vol] 27.5 mmol/L Normal 21.0-32.0 [facility] Comment on above: Performed By: #### C MP, HSTROPN #### [facility] [address] [address] [address] Jovanni Maya Creatinine [Mass/Vol] 0.84 mg/dL Normal 0.55-1.02 [facility] Comment on above: Performed By: #### C MP, HSTROPN #### [facility] [address] [place] [address] Dr. Jovanni Maya EGFR-AF [place] >60 Normal >=60 [facility] Comment on above: Performed By: #### C MP, HSTROPN #### [facility] [address] [place] [address] Dr. Jovanni Maya EGFR-NON AF [place] >60 Normal >=60 [facility] Comment on above: Performed By: #### C DANIEL, HSTROPN #### [facility] [address] [address] [address] Jovanni Maya Glucose [Mass/Vol] 103 mg/dL Normal 74-106 [facility] Comment on above: Performed By: #### C DANIEL, HSTROPN #### [facility] [address] [address] [address] Jovanni Maya Potassium [Moles/Vol] 3.5 mmol/L Normal 3.5-5.1 [facility] Comment on above: Performed By: #### C DANIEL, HSTROPN #### [facility] [address] [place] [address] Dr. Jovanni Maya Sodium [Moles/Vol] 140 mmol/L Normal 136-145 [facility] Comment on above: Performed By: #### C DANIEL, HSTROPN #### [facility] [address] [address] [address] Jovanni Maya Urea nitrogen [Mass/Vol] 12.0 mg/dL Normal 7.0-18.0 [facility] Comment on above: Performed By: #### C DANIEL, HSTROPN #### [facility] [address] [address] [address] Jovanni Maya Urea nitrogen/Creatinine [Mass ratio] 14.3 mg/mg Normal [facility] Comment on above: Performed By: #### C DANIEL, HSTROPN #### [facility] [address] [address] [address] Jovanni Maya URINE MICROSCOPIC ONLYon BACTERIA TRACE Abnormal NONE SEEN [facility] Comment on above: Performed By: #### P REG, ACETON #### [facility] [address] [place] [address] Dr. Jovanni Maya Bacteria identified Cx Nom (U) INDICATED Normal [facility] Comment on above: Performed By: #### P REG, ACETON #### [facility] [address] [place] [address] Dr. Jovanni Maya CA OX CRYSTALS RARE Normal [facility] Comment on above: Performed By: #### P REG, ACETON #### [facility] [address] [place] [address] Dr. Jovanni Maya CAST SEEN Abnormal NONE SEEN [facility] Comment on above: Performed By: #### P REG, ACETON #### [facility] [address] [place] [address] Dr. Jovanni Maya Crystals LM Nom (Urine sed) SEEN Abnormal NONE SEEN [facility] Comment on above: Performed By: #### P REG, ACETON #### [facility] [address] [place] [address] Dr. Jovanni Maya Epithelial cells LM Ql (Urine sed) FEW Abnormal NONE SEEN /RARE [facility] Comment on above: Performed By: #### P REG, ACETON #### [facility] [address] [place] [address] Dr. Jovanni Maya HYALINE CAST RARE Normal [facility] Comment on above: Performed By: #### P REG, ACETON #### [facility] [address] [place] [address] Dr. Jovanni Maya MUCOUS SMALL Abnormal NONE SEEN [facility] Comment on above: Performed By: #### P REG, ACETON #### [facility] [address] [place] [address] Dr. Jovanni Maya RBC 20-50 Abnormal 0-2 [facility] Comment on above: Performed By: #### P REG, ACETON #### [facility] [address] [place] [address] Dr. Jovanni Maya WBC 5-10 Abnormal NONE SEEN [facility] Comment on above: Performed By: #### P REG, ACETON #### [facility] [address] [place] [address] Dr. Jovanni Maya CBC AUTO DIFFon 10-16-2021 BASO # 0.0 103/ul Normal 0.0-0.1 [facility] Comment on above: Performed By: #### P REG, ACETON #### [facility] [address] [place] [address] Dr. Jovanni Maya Basophils/100 WBC (Bld) 0.2 % Normal 0.2-2.0 [facility] Comment on above: Performed By: #### P REG, ACETON #### [facility] [address] [place] [address] Dr. Jovanni Maya EO # 0.1 103/ul Normal 0.0-0.7 [facility] Comment on above: Performed By: #### P REG, ACETON #### [facility] [address] [place] [address] Dr. Jovanni Maya Eosinophils/100 WBC (Bld) 0.8 % Critically low 0.9-7.0 [facility] Comment on above: Performed By: #### P REG, ACETON #### [facility] [address] [place] [address] Dr. Jovanni Maya Erythrocyte distribution width (RBC) [Ratio] 12.2 % Normal 11.0-15.0 [facility] Comment on above: Performed By: #### P REG, ACETON #### [facility] [address] [place] [address] Dr. Jovanni Maya Hematocrit (Bld) [Volume fraction] 42.4 % Normal 36.0-48.0 [facility] Comment on above: Performed By: #### P REG, ACETON #### [facility] [address] [place] [address] Dr. Jovanni Maya Hemoglobin (Bld) [Mass/Vol] 14.5 g/dL Normal 12.0-16.0 [facility] Comment on above: Performed By: #### P REG, ACETON #### [facility] [address] [place] [address] Dr. Jovanni Maya IG # 0.04 10e3/ul Critically high 0.00-0.03 [facility] Comment on above: Performed By: #### P REG, ACETON #### [facility] [address] [place] [address] Dr. Jovanni Maya IG % 0.5 % Normal 0.0-0.5 [facility] Comment on above: Performed By: #### P REG, ACETON #### [facility] [address] [place] [address] Dr. Jovanni Maya LYMPH # 2.8 103/ul Normal 1.2-3.8 [facility] Comment on above: Performed By: #### P REG, ACETON #### [facility] [address] [place] [address] Dr. Jovanni Maya Lymphocytes/100 WBC (Bld) 31.8 % Normal 20.5-60.0 [facility] Comment on above: Performed By: #### P REG, ACETON #### [facility] [address] [place] [address] Dr. Jovanni Maya MANUAL DIFF REQ NO Normal [facility] Comment on above: Performed By: #### P REG, ACETON #### [facility] [address] [place] [address] Dr. Jovanni Maya MCH (RBC) [Entitic mass] 29.8 pg Normal 26.7-34.0 [facility] Comment on above: Performed By: #### P REG, ACETON #### [facility] [address] [place] [address] Dr. Jovanni Maya MCHC (RBC) [Mass/Vol] 34.2 g/dL Normal 29.9-35.2 [facility] Comment on above: Performed By: #### P REG, ACETON #### [facility] [address] [place] [address] Dr. Jovanni Maya MCV (RBC) [Entitic vol] 87.1 fL Normal 81.0-99.0 [facility] Comment on above: Performed By: #### P REG, ACETON #### [facility] [address] [place] [address] Dr. Jovanni Maya MONO # 0.6 103/ul Normal 0.3-0.8 [facility] Comment on above: Performed By: #### P REG, ACETON #### [facility] [address] [place] [address] Dr. Jovanni Maya Monocytes/100 WBC (Bld) 7.1 % Normal 1.7-12.0 [facility] Comment on above: Performed By: #### P REG, ACETON #### [facility] [address] [address] [address] Jovanni Maya NEUT # 5.2 103/ul Normal 1.4-6.5 [facility] Comment on above: Performed By: #### P REG, ACETON #### [facility] [address] [address] [address] Jovanni Maya Neutrophils/100 WBC (Bld) 59.6 % Normal 43.0-75.0 [facility] Comment on above: Performed By: #### P REG, ACETON #### [facility] [address] [address] [address] Jovanni Maya Platelet mean volume (Bld) [Entitic vol] 9.2 fL Critically low 9.5-13.5 [facility] Comment on above: Performed By: #### P REG, ACETON #### [facility] [address] [place] [address] Dr. Jovanni Maya PLT 301 103/ul Normal 150-450 [facility] Comment on above: Performed By: #### P REG, ACETON #### [facility] [address] [place] [address] Dr. Jovanni Maya RBC 4.87 106/ul Normal 4.20-5.40 [facility] Comment on above: Performed By: #### P REG, ACETON #### [facility] [address] [place] [address] Dr. Jovanni Maya WBC 8.7 103/ul Normal 4.0-11.0 [facility] Comment on above: Performed By: #### P REG, ACETON #### [facility] [address] [place] [address] Dr. Jovanni Maya CULTURE URINEon 10-16-2021 CULTURE URINE Culture Observations : LIGHT GROWTH OF MIXED GENITAL ZANDER. NO POTENTIAL PATHOGENS SEEN. Normal [facility] Comment on above: Performed By: #### C MP, HSTROPN #### [facility] [address] [address] [address] Jovanni Maya ER URINE PROFILEon Bilirubin Ql (U) Negative Normal NEGATIVE [facility] Comment on above: Performed By: #### P REG, ACETON #### [facility] [address] [address] [address] Jovanni Maya Clarity (U) CLEAR Normal CLEAR [facility] Comment on above: Performed By: #### P REG, ACETON #### [facility] [address] [place] [address] Dr. Jovanni Maya Color (U) LT. YELLOW Normal YELLOW [facility] Comment on above: Performed By: #### P REG, ACETON #### [facility] [address] [address] [address] Jovanni Maya ERUAHD A micrscopic examina tion will be performed if indicated. Normal [facility] Comment on above: Performed By: #### P REG, ACETON #### [facility] [address] [place] [address] Dr. Jovanni Maya Glucose Ql (U) Negative Normal NEGATIVE [facility] Comment on above: Performed By: #### P REG, ACETON #### [facility] [address] [place] [address] Dr. Jovanni Maya Hemoglobin Ql (U) LARGE Abnormal NEGATIVE [facility] Comment on above: Performed By: #### P REG, ACETON #### [facility] [address] [place] [address] Dr. Jovanni Maya Ketones Ql (U) TRACE Abnormal NEGATIVE [facility] Comment on above: Performed By: #### P REG, ACETON #### [facility] [address] [address] [address] Jovanni Maya LEUKOCYTES MODERATE Abnormal NEGATIVE [facility] Comment on above: Performed By: #### P REG, ACETON #### [facility] [address] [place] [address] Dr. Jovanni Maya Nitrite Ql (U) Negative Normal NEGATIVE [facility] Comment on above: Performed By: #### P REG, ACETON #### [facility] [address] [place] [address] Dr. Jovanni Maya pH (U) [pH] Abnormal 5-9 [facility] Comment on above: Performed By: #### P REG, ACETON #### [facility] [address] [place] [address] Dr. Jovanni Maya Protein (U) [Mass/Vol] 100 mg/dL Abnormal NEGAT BRUNO/ TRACE [facility] Comment on above: Performed By: #### P REG, ACETON #### [facility] [address] [place] [address] Dr. Jovanni Maya SPEC GRAVITY 1.015 Normal 1.005-<=1. 025 [facility] Comment on above: Performed By: #### P REG, ACETON #### [facility] [address] [place] [address] Dr. Jovanni Maya UR MICRO IND INDICATED Normal [facility] Comment on above: Performed By: #### P REG, ACETON #### [facility] [address] [place] [address] Dr. Jovanni Maya Urobilinogen Qn (U) 1.0 {Carlos A'U}/dL Normal 0.2 - 1. 0 [facility] Comment on above: Performed By: #### P REG, ACETON #### [facility] [address] [place] [address] Dr. Jovanni Maya LIPASEon 10-16-2021 Lipase [Catalytic activity/Vol] 85.0 U/L Normal 23.0-300.0 [facility] Comment on above: Performed By: #### P REG, ACETON #### [facility] [address] [place] [address] Dr. Jovanni Maya URon 10-16-2021 , QUAL Negative Normal NEGATIVE [facility] Comment on above: Performed By: #### P REG, ACETON #### [facility] [address] [place] [address] Dr. Jovanni Maya PROF 14(COMP METB)on 022 Albumin [Mass/Vol] 4.4 g/dL Normal 3.4-5.0 [facility] Comment on above: Performed By: #### P REG, ACETON #### [facility] [address] [address] [address] Jovanni Maya Albumin/Globulin [Mass ratio] 1.2 {ratio} Normal [facility] Comment on above: Performed By: #### P REG, ACETON #### [facility] [address] [address] [address] Jovanni Maya ALP [Catalytic activity/Vol] 66 U/L Normal 46-116 [facility] Comment on above: Performed By: #### P REG, ACETON #### [facility] [address] [address] [address] Jovanni Maya ALT [Catalytic activity/Vol] 13 U/L Critically low 14-59 [facility] Comment on above: Performed By: #### P REG, ACETON #### [facility] [address] [place] [address] Dr. Jovanni Maya Anion gap [Moles/Vol] 11.4 mmol/L Normal [facility] Comment on above: Performed By: #### P REG, ACETON #### [facility] [address] [place] [address] Dr. Jovanni Maya AST [Catalytic activity/Vol] 13 U/L Critically low 15-37 [facility] Comment on above: Performed By: #### P REG, ACETON #### [facility] [address] [place] [address] Dr. Jovanni Maya Bilirubin [Mass/Vol] 0.6 mg/dL Normal 0.2-1.3 [facility] Comment on above: Performed By: #### P REG, ACETON #### [facility] [address] [place] [address] Dr. Jovanni Maya Calcium [Mass/Vol] 8.7 mg/dL Normal 8.5-10.1 [facility] Comment on above: Performed By: #### P REG, ACETON #### [facility] [facility] [address] [place] [address] Dr. Jovanni Maya Chloride [Moles/Vol] 101 mmol/L Normal 98-107 [facility] Comment on above: Performed By: #### P REG, ACETON #### [facility] [address] [address] [address] Jovanni Maya CO2 [Moles/Vol] 27.5 mmol/L Normal 22.0-30.0 [facility] Comment on above: Performed By: #### P REG, ACETON #### [facility] [address] [address] [address] Jovanni Maya Creatinine [Mass/Vol] 0.80 mg/dL Normal 0.55-1.02 [facility] Comment on above: Performed By: #### P REG, ACETON #### [facility] [address] [address] [address] Jovanni Maya EGFR-AF [place] >60 Normal >=60 [facility] Comment on above: Performed By: #### P REG, ACETON #### [facility] [address] [place] [address] Dr. Jovanni Maya EGFR-NON AF [place]IZ[place] >60 Normal >=60 [facility] Comment on above: Performed By: #### P REG, ACETON #### [facility] [address] [address] [address] Jovanni Maya Globulin (S) [Mass/Vol] 3.7 g/dL Normal [facility] Comment on above: Performed By: #### P REG, ACETON #### [facility] [address] [place] [address] Dr. Jovanni Maya Glucose [Mass/Vol] 90 mg/dL Normal 74-106 [facility] Comment on above: Performed By: #### P REG, ACETON #### [facility] [address] [address] [address] Jovanni Maya Potassium [Moles/Vol] 3.9 mmol/L Normal 3.4-5.0 [facility] Comment on above: Performed By: #### P REG, ACETON #### [facility] [address] [address] [address] Jovanni Maya Protein [Mass/Vol] 8.1 g/dL Normal 6.1-8.2 [facility] Comment on above: Performed By: #### P REG, ACETON #### [facility] [address] [address] [address] Jovanni Maya Sodium [Moles/Vol] 136 mmol/L Critically low 137-145 [facility] Comment on above: Performed By: #### P REG, ACETON #### [facility] [address] [address] [address] Jovanni Maya Urea nitrogen [Mass/Vol] 10.0 mg/dL Normal 7.0-18.0 [facility] Comment on above: Performed By: #### P REG, ACETON #### [facility] [address] [address] [address] Jovanni Maya Urea nitrogen/Creatinine [Mass ratio] 12.5 mg/mg Normal [facility] Comment on above: Performed By: #### P REG, ACETON #### [facility] [address] [place] [address] Dr. Jovanni Maya URINE MICROSCOPIC ONLYon BACTERIA MODERATE Abnormal NONE SEEN [facility] Comment on above: Performed By: #### P REG, ACETON #### [facility] [address] [address] [address] Jovanni Maya Bacteria identified Cx Nom (U) INDICATED Normal [facility] Comment on above: Performed By: #### P REG, ACETON #### [facility] [address] [place] [address] Dr. Jovanni Maya CA OX CRYSTALS RARE Normal [facility] Comment on above: Performed By: #### P REG, ACETON #### [facility] [address] [address] [address] Jovanni Maya CAST NONE SEEN Normal NONE SEEN [facility] Comment on above: Performed By: #### P REG, ACETON #### [facility] [address] [place] [address] Dr. Jovanni Maya Crystals LM Nom (Urine sed) SEEN Abnormal NONE SEEN [facility] Comment on above: Performed By: #### P REG, ACETON #### [facility] [address] [place] [address] Dr. Jovanni Maya Epithelial cells LM Ql (Urine sed) MODERATE Abnormal NONE SEEN /RARE [facility] Comment on above: Performed By: #### P REG, ACETON #### [facility] [address] [address] [address] Jovanni Maya MUCOUS NONE SEEN Normal NONE SEEN [facility] Comment on above: Performed By: #### P REG, ACETON #### [facility] [address] [address] [address] Jovanni Maya RBC 50-75 Abnormal 0-2 [facility] Comment on above: Performed By: #### P REG, ACETON #### [facility] [address] [address] [address] Jovanni Maya WBC 10-20 Abnormal NONE SEEN [facility] Comment on above: Performed By: #### P REG, ACETON #### [facility] [address] [place] [address] Dr. Jovanni Maya XR KUB 1 VIEWon [...] COSMO ALONSO Date: 2021-10-16 19:18 Normal [facility] Activated partial thrombopla stin time (aPTT) in platelet poor plasma by coagulation aOrdered By: Roberto Whittaker on 09-28-2021 aPTT Coag (PPP) [Time] 34.9 s 25.1-36.5 [facility] Albumin [Mass/volume] in Ser um or PlasmaOrdered By: Roberto Whittaker on 09-28-2021 Albumin [Mass/Vol] 4.3 g/dL 3.2-5.5 [facility] Basophils Auto (Bld) [#/Vol] Ordered By: Roberto Whittaker on 09-28-2021 Basophils (Bld) [#/Vol] 0.0 10*3/uL 0.0-0.2 [facility] Basophils/100 WBC Auto (Bld) Ordered By: Roberto Whittaker on 09-28-2021 Basophils/100 WBC (Bld) 0.7 % [facility] Blood hemoglobin measurement (mass/volume)Ordered By: Roberto Whittaker on 09-28-2021 Hemoglobin (Bld) [Mass/Vol] 14.7 g/dL 11.8-15.4 [facility] Blood leukocytes automated c ount (number/volume)Ordered By: Roberto Whittaker on 09-28-2021 WBC (Bld) [#/Vol] 6.2 10*3/uL 4.5-11.0 [facility] Creatinine and Glomerular fi ltration rate.predicted panel (S/P/Bld)Ordered By: Roberto Whittaker on 09-28-2021 Creatinine [Mass/Vol] 0.73 mg/dL 0.44-1.03 [facility] Direct bilirubin measurement Ordered By: Roberto Whittaker on 09-28-2021 Bilirubin.direct [Mass/Vol] mg/dL 0.0-0.4 [facility] Eosinophils Auto (Bld) [#/Vo l]Ordered By: Roberto Whittaker on 09-28-2021 Eosinophils (Bld) [#/Vol] 0.1 10*3/uL 0.0-0.45 [facility] Eosinophils/100 WBC Auto (Bl d)Ordered By: Roberto Whittaker on 09-28-2021 Eosinophils/100 WBC (Bld) 1.8 % [facility] Erythrocyte distribution wid th Auto (RBC) [Ratio]Ordered By: Roberto Whittaker on 09-28-2021 Erythrocyte distribution width (RBC) [Ratio] 13.1 % 11.9-15.3 [facility] Estimated glomerular filtrat ion rate (GFR) non- AmericanOrdered By: Roberto Whittaker on 09-28-2021 GFR/1.73 sq M.predicted among non-blacks MDRD (S/P/Bld) [Vol rate/Area] > 60 mL/Min [facility] Globulin Calc (S) [Mass/Vol] Ordered By: Roberto Whittaker on 09-28-2021 Globulin (S) [Mass/Vol] 3.2 g/dL [facility] Hematocrit Auto (Bld) [Volum e fraction]Ordered By: Roberto Whittaker on 09-28-2021 Hematocrit (Bld) [Volume fraction] 44.2 % 34.0-46.4 [facility] Laboratory - Chemistry and C hemistry - challengeOrdered By: Roberto Whittaker on 09-28-2021 Lipase [Catalytic activity/Vol] 36.0 U/L 22-51 [facility] Natriuretic peptide B (Bld) [Mass/Vol] 17.0 pg/mL 5-100 [facility] Laboratory - CoagulationOrde red By: Roberto Whittaker on 09-28-2021 PT Coag (PPP) [Time] 12.3 s 9.0-12.9 [facility] - Hematology and Cell countsOrdered By: Roberto Whittaker on 09-28-2021 Nucleated RBC/100 WBC (Bld) [Ratio] 0.0 % 0-0.5 [facility] Lymphocytes Auto (Bld) [#/Vo l]Ordered By: Roberto Whittaker on 09-28-2021 Lymphocytes (Bld) [#/Vol] 2.7 10*3/uL 1.00-4.8 [facility] Lymphocytes/100 WBC Auto (Bl d)Ordered By: Roberto Whittaker on 09-28-2021 Lymphocytes/100 WBC (Bld) 43.6 % [facility] MCH Auto (RBC) [Entitic mass ]Ordered By: Roberto Whittaker on 09-28-2021 MCH (RBC) [Entitic mass] 29.8 pg 24.7-34.3 [facility] MCHC Auto (RBC) [Mass/Vol]Or dered By: Roberto Whittaker on 09-28-2021 MCHC (RBC) [Mass/Vol] 33.2 g/dL 32.0-35.0 [facility] MCV Auto (RBC) [Entitic vol] Ordered By: Roberto Whittaker on 09-28-2021 MCV (RBC) [Entitic vol] 89.6 fL 80-100 [facility] Monocytes Auto (Bld) [#/Vol] Ordered By: Roberto Whittaker on 09-28-2021 Monocytes (Bld) [#/Vol] 0.4 10*3/uL 0.0-0.8 [facility] Monocytes/100 WBC Auto (Bld) Ordered By: Roberto Whittaker on 09-28-2021 Monocytes/100 WBC (Bld) 6.8 % [facility] Neutrophils Auto (Bld) [#/Vo l]Ordered By: Roberto Whittaker on 09-28-2021 Neutrophils (Bld) [#/Vol] 2.9 10*3/uL 1.8-7.7 [facility] Neutrophils/100 WBC Auto (Bl d)Ordered By: Roberto Whittaker on 09-28-2021 Neutrophils/100 WBC (Bld) 47.1 % [facility] No Panel InformationOrdered By: Roberto Whittaker on 09-28-2021 Estimated GFR () > 60 mL/Min [facility] Comment on above: GFR estimated refere nce range: According to KDOQI guidelines, <60 ml/min/1.73m2 is sufficient to diagnose a patient with chronic kidney disease. Pharmacy Creatinine Clearance (Chem 91.21 [facility] Platelet mean volume Auto (B ld) [Entitic vol]Ordered By: Roberto Whittaker on 09-28-2021 Platelet mean volume (Bld) [Entitic vol] 7.7 fL 6.3-10.7 [facility] Platelet poor plasma interna tional normalized ratio (INR) by coagulation assay (relatOrdered By: Roberto Whittaker on 09-28-2021 INR Coag (PPP) [Relative time] 1.1 {INR} [facility] Comment on above: INR Therapeutic Rang e [...] (Bld) [#/Vol] 291 10*3/uL 150-450 [facility] Protein [Mass/volume] in Ser um or PlasmaOrdered By: Roberto Whittaker on 09-28-2021 Protein [Mass/Vol] 7.5 g/dL 6.1-7.9 [facility] RBC Auto (Bld) [#/Vol]Ordere d By: Roberto Whittaker on 09-28-2021 RBC (Bld) [#/Vol] 4.93 10*6/uL 3.60-5.00 [facility] Serum or plasma alanine white otransferase measurement without P-5'-P (enzymatic activiOrdered By: Roberto Whittaker on 09-28-2021 ALT No additional P-5'-P [Catalytic activity/Vol] 9 U/L 10-60 [facility] Serum or plasma albumin/glob ulin mass ratioOrdered By: Roberto Whittaker on 09-28-2021 Albumin/Globulin [Mass ratio] 1.3 {ratio} [facility] Serum or plasma alkaline ignacio sphatase measurement (enzymatic activity/volume)Ordered By: Roberto Whittaker on 09-28-2021 ALP [Catalytic activity/Vol] 51 U/L 32-92 [facility] Serum or plasma aspartate am inotransferase measurement (enzymatic activity/volume)Ordered By: Roberto Whittaker on 09-28-2021 AST [Catalytic activity/Vol] 16 U/L 10-42 [facility] Serum or plasma calcium randi urement (mass/volume)Ordered By: Roberto Whittaker on 09-28-2021 Calcium [Mass/Vol] 9.2 mg/dL 8.2-10.2 [facility] Serum or plasma chloride melonie surement (moles/volume)Ordered By: Roberto Whittaker on 09-28-2021 Chloride [Moles/Vol] 104 mmol/L 95-114 [facility] Serum or plasma glucose randi urement (mass/volume)Ordered By: Roberto Whittaker on 09-28-2021 Glucose [Mass/Vol] 100 mg/dL 70-100 [facility] Comment on above: ADA recommended refe rence rangeRandom Glucose Reference Range is dependent on time and content of last meal. Glucose of more than 200 mg/dL in a nonstressed, ambulatory subject supports the diagnosis of Diabetes Mellitus. Serum or plasma non-glucuron idated bilirubin measurement (mass/volume)Ordered By: Roberto Whittaker on 09-28-2021 Bilirubin.indirect [Mass/Vol] TNP [facility] Comment on above: Test not performed Serum or plasma potassium me asurement (moles/volume)Ordered By: Roberto Whittaker on 09-28-2021 Potassium [Moles/Vol] 4.4 mmol/L 3.5-5.1 [facility] Serum or plasma sodium measu rement (moles/volume)Ordered By: Roberto Whittaker on 09-28-2021 Sodium [Moles/Vol] 140 mmol/L 136-146 [facility] Serum or plasma total biliru bin measurement (mass/volume)Ordered By: Roberto Whittaker on 09-28-2021 Bilirubin [Mass/Vol] 0.4 mg/dL 0.3-1.2 [facility] Serum or plasma total carbon dioxide measurement (moles/volume)Ordered By: Roberto Whittaker on 09-28-2021 CO2 [Moles/Vol] 28.1 mmol/L 22.0-30.0 [facility] Serum or plasma urea nitroge n measurement (mass/volume)Ordered By: Roberto Whittaker on 09-28-2021 Urea nitrogen [Mass/Vol] 5 mg/dL 9-23 [facility] Troponin I.cardiac [Mass/vol ume] in Serum or Plasma by High sensitivity methodOrdered By: Roberto Whittaker on 09-28-2021 Troponin I.cardiac High sensitivity method [Mass/Vol] < 3 pg/mL 0-15 [facility] Albumin [Mass/volume] in Ser um or PlasmaOrdered By: Som Fiore on 09-09-2021 Albumin [Mass/Vol] 4.0 g/dL 3.2-5.5 [facility] Amphetamine Screen Ql (U)Ord ered By: Som Fiore on 09-09-2021 Amphetamines Ql (U) Negative Negative [facility] Automated erythrocytes count in urine sediment (number/area)Ordered By: Som Fiore on 09-09-2021 RBC Auto (Urine sed) [#/Area] 50-100 [HPF] [facility] Automated leukocytes count i n urine sediment (number/area)Ordered By: Som Fiore on 09-09-2021 WBC Auto (Urine sed) [#/Area] 20-49 [HPF] [facility] Barbiturates [Presence] in U rineOrdered By: Som Fiore on 09-09-2021 Barbiturates Ql (U) Negative Negative [facility] Basophils Auto (Bld) [#/Vol] Ordered By: Som Fiore on 09-09-2021 Basophils (Bld) [#/Vol] 0.0 10*3/uL 0.0-0.2 [facility] Basophils/100 WBC Auto (Bld) Ordered By: Som Fiore on 09-09-2021 Basophils/100 WBC (Bld) 0.5 % [facility] Benzodiazepines [Presence] i n UrineOrdered By: Som Fiore on 09-09-2021 Benzodiazepines Ql (U) Negative [facility] Bilirubin Test strip Ql (U)O rdered By: Som Fiore on 09-09-2021 Bilirubin Ql (U) Negative Negative [facility] Blood hemoglobin measurement (mass/volume)Ordered By: Som Fiore on 09-09-2021 Hemoglobin (Bld) [Mass/Vol] 14.1 g/dL 11.8-15.4 [facility] Blood leukocytes automated c ount (number/volume)Ordered By: Som Fiore on 09-09-2021 WBC (Bld) [#/Vol] 8.3 10*3/uL 4.5-11.0 [facility] Cannabinoids [Presence] in U rine by Screen methodOrdered By: Som Fiore on 09-09-2021 Cannabinoids Screen Ql (U) Positive Negative [facility] Comment on above: These are unconfirme d results and should not be used for legal purposes. Drug Cut-Off Concentration: AMPH 1000 ng/mL ELMER 200 ng/mL BRICE 200 ng/mL COCM 300 ng/mL OP 300 ng/mL PCP 25 ng/mL THC 20 ng/mL Color Auto (U)Ordered By: Giovanni Fiore on 09-09-2021 Color (U) Yellow Yellow [facility] Creatinine and Glomerular fi ltration rate.predicted panel (S/P/Bld)Ordered By: Som Fiore on 09-09-2021 Creatinine [Mass/Vol] 0.76 mg/dL 0.44-1.03 [facility] Eosinophils Auto (Bld) [#/Vo l]Ordered By: Som Fiore on 09-09-2021 Eosinophils (Bld) [#/Vol] 0.1 10*3/uL 0.0-0.45 [facility] Eosinophils/100 WBC Auto (Bl d)Ordered By: Som Fiore on 09-09-2021 Eosinophils/100 WBC (Bld) 1.8 % [facility] Erythrocyte distribution wid th Auto (RBC) [Ratio]Ordered By: Som Fiore on 09-09-2021 Erythrocyte distribution width (RBC) [Ratio] 13.1 % 11.9-15.3 [facility] Estimated glomerular filtrat ion rate (GFR) non- AmericanOrdered By: Som Fiore on 09-09-2021 GFR/1.73 sq M.predicted among non-blacks MDRD (S/P/Bld) [Vol rate/Area] > 60 mL/Min [facility] Globulin Calc (S) [Mass/Vol] Ordered By: Som Fiore on 09-09-2021 Globulin (S) [Mass/Vol] 3.0 g/dL [facility] Glucose Glucometer (BldC) [M ass/Vol]Ordered By: Som Fiore on 09-09-2021 Glucose [Mass/Vol] 106 mg/dL [facility] Comment on above: Random Glucose Refer ence Range is dependent on time and content of last meal. Glucose of more than 200 mg/dL in a nonstressed, ambulatory subject supports the diagnosis of Diabetes Mellitus. Hematocrit Auto (Bld) [Volum e fraction]Ordered By: Som Fiore on 09-09-2021 Hematocrit (Bld) [Volume fraction] 40.9 % 34.0-46.4 [facility] Ketones Auto test strip (U) [Mass/Vol]Ordered By: Som Fiore on 09-09-2021 Ketones (U) [Mass/Vol] Negative Negative [facility] Laboratory - Chemistry and C hemistry - challengeOrdered By: Som Fiore on 09-09-2021 Magnesium [Mass/Vol] 2.0 mg/dL 1.6-2.6 [facility] Laboratory - CoagulationOrde red By: Som Fiore on 09-09-2021 PT Coag (PPP) [Time] 12.4 s 9.0-12.9 [facility] - Drug toxicology Ordered By: Smo Fiore on 09-09-2021 Opiates Ql (U) Negative Negative [facility] - Hematology and Cell countsOrdered By: Som Fiore on 09-09-2021 Nucleated RBC/100 WBC (Bld) [Ratio] 0.1 % 0-0.5 [facility] - UrinalysisOrder ed By: Som Fiore on 09-09-2021 Hyaline casts LM Ql (Urine sed) 0-8 [LPF] [facility] Lymphocytes Auto (Bld) [#/Vo l]Ordered By: Som Fiore on 09-09-2021 Lymphocytes (Bld) [#/Vol] 3.2 10*3/uL 1.00-4.8 [facility] Lymphocytes/100 WBC Auto (Bl d)Ordered By: Som Fiore on 09-09-2021 Lymphocytes/100 WBC (Bld) 38.6 % [facility] MCH Auto (RBC) [Entitic mass ]Ordered By: Som Fiore on 09-09-2021 MCH (RBC) [Entitic mass] 30.6 pg 24.7-34.3 [facility] MCHC Auto (RBC) [Mass/Vol]Or dered By: Som Fiore on 09-09-2021 MCHC (RBC) [Mass/Vol] 34.5 g/dL 32.0-35.0 [facility] MCV Auto (RBC) [Entitic vol] Ordered By: Som Fiore on 09-09-2021 MCV (RBC) [Entitic vol] 88.6 fL 80-100 [facility] Monocytes Auto (Bld) [#/Vol] Ordered By: Som Fiore on 09-09-2021 Monocytes (Bld) [#/Vol] 0.5 10*3/uL 0.0-0.8 [facility] Monocytes/100 WBC Auto (Bld) Ordered By: Som Fiore on 09-09-2021 Monocytes/100 WBC (Bld) 6.3 % [facility] Neutrophils Auto (Bld) [#/Vo l]Ordered By: Som Fiore on 09-09-2021 Neutrophils (Bld) [#/Vol] 4.4 10*3/uL 1.8-7.7 [facility] Neutrophils/100 WBC Auto (Bl d)Ordered By: Som Fiore on 09-09-2021 Neutrophils/100 WBC (Bld) 52.8 % [facility] Nitrite Test strip Ql (U)Ord ered By: Som Fiore on 09-09-2021 Nitrite Ql (U) Negative Negative [facility] No Panel InformationOrdered By: Smo Fiore on 09-09-2021 Estimated GFR () > 60 mL/Min [facility] Comment on above: GFR estimated refere nce range: According to KDOQI guidelines, <60 ml/min/1.73m2 is sufficient to diagnose a patient with chronic kidney disease. Pharmacy Creatinine Clearance (Chem 83.88 [facility] Phencyclidine Screen Ql (U)O rdered By: Som Fiore on 09-09-2021 Phencyclidine Ql (U) Negative Negative [facility] Platelet mean volume Auto (B ld) [Entitic vol]Ordered By: Som Fiore on 09-09-2021 Platelet mean volume (Bld) [Entitic vol] 8.5 fL 6.3-10.7 [facility] Platelet poor plasma interna tional normalized ratio (INR) by coagulation assay (relatOrdered By: Som Fiore on 09-09-2021 INR Coag (PPP) [Relative time] 1.1 {INR} [facility] Comment on above: INR Therapeutic Rang e [...] (Bld) [#/Vol] 249 10*3/uL 150-450 [facility] Protein Auto test strip (U) [Mass/Vol]Ordered By: Som Fiore on 09-09-2021 Protein (U) [Mass/Vol] 30 mg/dL Negative [facility] Protein [Mass/volume] in Ser um or PlasmaOrdered By: Som Fiore on 09-09-2021 Protein [Mass/Vol] 7.0 g/dL 6.1-7.9 [facility] RBC Auto (Bld) [#/Vol]Ordere d By: Som Fiore on 09-09-2021 RBC (Bld) [#/Vol] 4.62 10*6/uL 3.60-5.00 [facility] Serum or plasma alanine white otransferase measurement without P-5'-P (enzymatic activiOrdered By: Som Fiore on 09-09-2021 ALT No additional P-5'-P [Catalytic activity/Vol] 11 U/L 10-60 [facility] Serum or plasma albumin/glob ulin mass ratioOrdered By: Som Fiore on 09-09-2021 Albumin/Globulin [Mass ratio] 1.3 {ratio} [facility] Serum or plasma alkaline ignacio sphatase measurement (enzymatic activity/volume)Ordered By: Som Fiore on 09-09-2021 ALP [Catalytic activity/Vol] 45 U/L 32-92 [facility] Serum or plasma aspartate am inotransferase measurement (enzymatic activity/volume)Ordered By: oSm Fiore on 09-09-2021 AST [Catalytic activity/Vol] 24 U/L 10-42 [facility] Serum or plasma calcium randi urement (mass/volume)Ordered By: Som Fiore on 09-09-2021 Calcium [Mass/Vol] 9.2 mg/dL 8.2-10.2 [facility] Serum or plasma chloride melonie surement (moles/volume)Ordered By: Som Fiore on 09-09-2021 Chloride [Moles/Vol] 103 mmol/L 95-114 [facility] Serum or plasma glucose randi urement (mass/volume)Ordered By: Som Fiore on 09-09-2021 Glucose [Mass/Vol] 85 mg/dL 70-100 [facility] Comment on above: ADA recommended refe rence rangeRandom Glucose Reference Range is dependent on time and content of last meal. Glucose of more than 200 mg/dL in a nonstressed, ambulatory subject supports the diagnosis of Diabetes Mellitus. Serum or plasma potassium me asurement (moles/volume)Ordered By: Som Fiore on 09-09-2021 Potassium [Moles/Vol] 4.2 mmol/L 3.5-5.1 [facility] Serum or plasma sodium measu rement (moles/volume)Ordered By: Som Fiore on 09-09-2021 Sodium [Moles/Vol] 138 mmol/L 136-146 [facility] Serum or plasma total biliru bin measurement (mass/volume)Ordered By: Som Fiore on 09-09-2021 Bilirubin [Mass/Vol] 0.3 mg/dL 0.3-1.2 [facility] Serum or plasma total carbon dioxide measurement (moles/volume)Ordered By: Som Fiore on 09-09-2021 CO2 [Moles/Vol] 26.3 mmol/L 22.0-30.0 [facility] Serum or plasma urea nitroge n measurement (mass/volume)Ordered By: Som Fiore on 09-09-2021 Urea nitrogen [Mass/Vol] 8 mg/dL 9-23 [facility] Specific gravity Auto test s trip (U) [Rel density]Ordered By: Som Fiore on 09-09-2021 Specific gravity (U) [Rel density] 1.017 1.001-1.03 0 [facility] Squamous epithelial cells de tection in urine sediment by light microscopyOrdered By: Som Fiore on 09-09-2021 Epithelial cells.squamous LM Ql (Urine sed) 1-2 [HPF] [facility] Urine bacteria detection by automated methodOrdered By: Som Fiore on 09-09-2021 Bacteria Auto Ql (U) None seen None Seen [facility] Urine clarity by refractomet ry automatedOrdered By: Som Fiore on 09-09-2021 Clarity Refractometry automated (U) Cloudy Clear [facility] Urine cocaine detectionOrder ed By: Som Fiore on 09-09-2021 Cocaine Ql (U) Negative Negative [facility] Urine culture routineOrdered By: Som Fiore on 09-09-2021 Bacteria identified Cx Nom (U) 2 Days [facility] Urine glucose measurement by automated test strip (mass/volume)Ordered By: Som Fiore on 09-09-2021 Glucose Auto test strip (U) [Mass/Vol] Normal mg/dL Normal [facility] Urine hemoglobin detection b y automated test stripOrdered By: Som Fiore on 09-09-2021 Hemoglobin Auto test strip Ql (U) 2+ Negative [facility] Urine leukocyte esterase det ection by automated test stripOrdered By: Som Fiore on 09-09-2021 Leukocyte esterase Auto test strip Ql (U) 3+ Negative [facility] Urobilinogen Auto test strip (U) [Mass/Vol]Ordered By: Som Fiore on 09-09-2021 Urobilinogen (U) [Mass/Vol] Normal mg/dL Normal [facility] pH Auto test strip (U)Ordere d By: Som Fiore on 09-09-2021 pH (U) 7.0 [pH] 5.0-9.0 [facility] Albumin [Mass/volume] in Ser um or PlasmaOrdered By: Tommy Bowen on 08-12-2021 Albumin [Mass/Vol] 4.0 g/dL 3.2-5.5 [facility] Automated erythrocytes count in urine sediment (number/area)Ordered By: Tommy Boewn on 08-12-2021 RBC Auto (Urine sed) [#/Area] Innumerable [HPF] [facility] Automated leukocytes count i n urine sediment (number/area)Ordered By: Tommy Bowen on 08-12-2021 WBC Auto (Urine sed) [#/Area] 5-9 [HPF] [facility] Basophils Auto (Bld) [#/Vol] Ordered By: Tommy Bowen on 08-12-2021 Basophils (Bld) [#/Vol] 0.0 10*3/uL 0.0-0.2 [facility] Basophils/100 WBC Auto (Bld) Ordered By: Tommy Bowen on 08-12-2021 Basophils/100 WBC (Bld) 0.3 % [facility] Bilirubin Test strip Ql (U)O rdered By: Tommy Bowen on 08-12-2021 Bilirubin Ql (U) Negative Negative [facility] Blood hemoglobin measurement (mass/volume)Ordered By: Tommy Bowen on 08-12-2021 Hemoglobin (Bld) [Mass/Vol] 13.9 g/dL 11.8-15.4 [facility] Blood leukocytes automated c ount (number/volume)Ordered By: Tommy Bowen on 08-12-2021 WBC (Bld) [#/Vol] 8.6 10*3/uL 4.5-11.0 [facility] Color Auto (U)Ordered By: Hermes Bowen on 08-12-2021 Color (U) Yellow Yellow [facility] Creatinine and Glomerular fi ltration rate.predicted panel (S/P/Bld)Ordered By: Tommy Bowen on 08-12-2021 Creatinine [Mass/Vol] 0.70 mg/dL 0.44-1.03 [facility] Eosinophils Auto (Bld) [#/Vo l]Ordered By: Tommy Bowen on 08-12-2021 Eosinophils (Bld) [#/Vol] 0.0 10*3/uL 0.0-0.45 [facility] Eosinophils/100 WBC Auto (Bl d)Ordered By: Tommy Bowen on 08-12-2021 Eosinophils/100 WBC (Bld) 0.3 % [facility] Erythrocyte distribution wid th Auto (RBC) [Ratio]Ordered By: Tommy Bowen on 08-12-2021 Erythrocyte distribution width (RBC) [Ratio] 12.7 % 11.9-15.3 [facility] Estimated glomerular filtrat ion rate (GFR) non- AmericanOrdered By: Tommy Bowen on 08-12-2021 GFR/1.73 sq M.predicted among non-blacks MDRD (S/P/Bld) [Vol rate/Area] > 60 mL/Min [facility] Globulin Calc (S) [Mass/Vol] Ordered By: Tommy Bowen on 08-12-2021 Globulin (S) [Mass/Vol] 3.6 g/dL [facility] Glucose Glucometer (BldC) [M ass/Vol]Ordered By: Tommy Bowen on 08-12-2021 Glucose [Mass/Vol] 102 mg/dL [facility] Comment on above: Random Glucose Refer ence Range is dependent on time and content of last meal. Glucose of more than 200 mg/dL in a nonstressed, ambulatory subject supports the diagnosis of Diabetes Mellitus. Hematocrit Auto (Bld) [Volum e fraction]Ordered By: Tommy Bowen on 08-12-2021 Hematocrit (Bld) [Volume fraction] 40.4 % 34.0-46.4 [facility] Ketones Auto test strip (U) [Mass/Vol]Ordered By: Tommy Bowen on 08-12-2021 Ketones (U) [Mass/Vol] Trace Negative Fi [facility] Laboratory - Hematology and Cell countsOrdered By: Tommy Bowen on 08-12-2021 Nucleated RBC/100 WBC (Bld) [Ratio] 0.1 % 0-0.5 [facility] Laboratory - UrinalysisOrder ed By: Tommy Bowen on 08-12-2021 Hyaline casts LM Ql (Urine sed) 0-8 [LPF] [facility] Lymphocytes Auto (Bld) [#/Vo l]Ordered By: Tommy Bowen on 08-12-2021 Lymphocytes (Bld) [#/Vol] 2.0 10*3/uL 1.00-4.8 [facility] Lymphocytes/100 WBC Auto (Bl d)Ordered By: Tommy Bowen on 08-12-2021 Lymphocytes/100 WBC (Bld) 23.2 % [facility] MCH Auto (RBC) [Entitic mass ]Ordered By: Tommy Bowen on 08-12-2021 MCH (RBC) [Entitic mass] 30.2 pg 24.7-34.3 [facility] MCHC Auto (RBC) [Mass/Vol]Or dered By: Tommy Bowen on 08-12-2021 MCHC (RBC) [Mass/Vol] 34.5 g/dL 32.0-35.0 [facility] MCV Auto (RBC) [Entitic vol] Ordered By: Tommy Bowen on 08-12-2021 MCV (RBC) [Entitic vol] 87.6 fL 80-100 [facility] Monocytes Auto (Bld) [#/Vol] Ordered By: Tommy Bowen on 08-12-2021 Monocytes (Bld) [#/Vol] 0.6 10*3/uL 0.0-0.8 [facility] Monocytes/100 WBC Auto (Bld) Ordered By: Tommy Bowen on 08-12-2021 Monocytes/100 WBC (Bld) 6.7 % [facility] Neutrophils Auto (Bld) [#/Vo l]Ordered By: Tommy Bowen on 08-12-2021 Neutrophils (Bld) [#/Vol] 6.0 10*3/uL 1.8-7.7 [facility] Neutrophils/100 WBC Auto (Bl d)Ordered By: Tommy Bowen on 08-12-2021 Neutrophils/100 WBC (Bld) 69.5 % [facility] Nitrite Test strip Ql (U)Ord ered By: Tommy Bowen on 08-12-2021 Nitrite Ql (U) Negative Negative [facility] No Panel InformationOrdered By: Tommy Bowen on 08-12-2021 Estimated GFR () > 60 mL/Min [facility] Comment on above: GFR estimated refere nce range: According to KDOQI guidelines, <60 ml/min/1.73m2 is sufficient to diagnose a patient with chronic kidney disease. Pharmacy Creatinine Clearance (Chem 143.12 [facility] Platelet mean volume Auto (B ld) [Entitic vol]Ordered By: Tommy Bowen on 08-12-2021 Platelet mean volume (Bld) [Entitic vol] 7.9 fL 6.3-10.7 [facility] Platelets Auto (Bld) [#/Vol] Ordered By: Tommy Bowen on 08-12-2021 Platelets (Bld) [#/Vol] 315 10*3/uL 150-450 [facility] Protein Auto test strip (U) [Mass/Vol]Ordered By: Tommy Bowen on 08-12-2021 Protein (U) [Mass/Vol] 30 mg/dL Negative Fi [facility] Protein [Mass/volume] in Ser um or PlasmaOrdered By: Tommy Bowen on 08-12-2021 Protein [Mass/Vol] 7.6 g/dL 6.1-7.9 [facility] RBC Auto (Bld) [#/Vol]Ordere d By: Tommy Bowen on 08-12-2021 RBC (Bld) [#/Vol] 4.61 10*6/uL 3.60-5.00 [facility] Serum or plasma alanine white otransferase measurement without P-5'-P (enzymatic activiOrdered By: Tommy Bowen on 08-12-2021 ALT No additional P-5'-P [Catalytic activity/Vol] 11 U/L 10-60 [facility] Serum or plasma albumin/glob ulin mass ratioOrdered By: Tommy Bowen on 08-12-2021 Albumin/Globulin [Mass ratio] 1.1 {ratio} [facility] Serum or plasma alkaline ignacio sphatase measurement (enzymatic activity/volume)Ordered By: Tommy Bowen on 08-12-2021 ALP [Catalytic activity/Vol] 58 U/L 32-92 [facility] Serum or plasma aspartate am inotransferase measurement (enzymatic activity/volume)Ordered By: Tommy Bowen on 08-12-2021 AST [Catalytic activity/Vol] 16 U/L 10-42 [facility] Serum or plasma calcium randi urement (mass/volume)Ordered By: Tommy Bowen on 08-12-2021 Calcium [Mass/Vol] 9.1 mg/dL 8.2-10.2 [facility] Serum or plasma chloride melonie surement (moles/volume)Ordered By: Tommy Bowen on 08-12-2021 Chloride [Moles/Vol] 102 mmol/L 95-114 [facility] Serum or plasma glucose randi urement (mass/volume)Ordered By: Tommy Bowen on 08-12-2021 Glucose [Mass/Vol] 86 mg/dL 70-100 [facility] Comment on above: ADA recommended refe rence rangeRandom Glucose Reference Range is dependent on time and content of last meal. Glucose of more than 200 mg/dL in a nonstressed, ambulatory subject supports the diagnosis of Diabetes Mellitus. Serum or plasma potassium me asurement (moles/volume)Ordered By: Tommy Bowen on 08-12-2021 Potassium [Moles/Vol] 3.6 mmol/L 3.5-5.1 [facility] Serum or plasma sodium measu rement (moles/volume)Ordered By: Tommy Bowen on 08-12-2021 Sodium [Moles/Vol] 136 mmol/L 136-146 [facility] Serum or plasma total biliru bin measurement (mass/volume)Ordered By: Tommy Bowen on 08-12-2021 Bilirubin [Mass/Vol] 0.5 mg/dL 0.3-1.2 [facility] Serum or plasma total carbon dioxide measurement (moles/volume)Ordered By: Tommy Bowen on 08-12-2021 CO2 [Moles/Vol] 23.8 mmol/L 22.0-30.0 [facility] Serum or plasma urea nitroge n measurement (mass/volume)Ordered By: Tommy Bowen on 08-12-2021 Urea nitrogen [Mass/Vol] 6 mg/dL 9-23 [facility] Specific gravity Auto test s trip (U) [Rel density]Ordered By: Tommy Bowen on 08-12-2021 Specific gravity (U) [Rel density] 1.018 1.001-1.03 0 [facility] Squamous epithelial cells de tection in urine sediment by light microscopyOrdered By: Tommy Bowen on 08-12-2021 Epithelial cells.squamous LM Ql (Urine sed) 3-4 [HPF] [facility] Urine bacteria detection by automated methodOrdered By: Tommy Bowen on 08-12-2021 Bacteria Auto Ql (U) None seen None Seen [facility] Urine clarity by refractomet ry automatedOrdered By: Tommy Bowen on 08-12-2021 Clarity Refractometry automated (U) Clear Clear [facility] Urine culture routineOrdered By: Tommy Bowen on 08-12-2021 Bacteria identified Cx Nom (U) No Growth 2 Days [facility] Urine glucose measurement by automated test strip (mass/volume)Ordered By: Tomym Bowen on 08-12-2021 Glucose Auto test strip (U) [Mass/Vol] Normal mg/dL Normal [facility] Urine hemoglobin detection b y automated test stripOrdered By: Tommy Bowen on 08-12-2021 Hemoglobin Auto test strip Ql (U) 3+ Negative [facility] Urine leukocyte esterase det ection by automated test stripOrdered By: Tommy Bowen on 08-12-2021 Leukocyte esterase Auto test strip Ql (U) 1+ Negative [facility] Urobilinogen Auto test strip (U) [Mass/Vol]Ordered By: Tommy Bowen on 08-12-2021 Urobilinogen (U) [Mass/Vol] Normal mg/dL Normal [facility] pH Auto test strip (U)Ordere d By: Tommy Bowen on 08-12-2021 pH (U) 8.0 [pH] 5.0-9.0 [facility] Albumin [Mass/volume] in Ser um or PlasmaOrdered By: Tommy Bowen on 08-07-2021 Albumin [Mass/Vol] 4.4 g/dL 3.2-5.5 [facility] Automated erythrocytes count in urine sediment (number/area)Ordered By: Tommy Bowen on 08-07-2021 RBC Auto (Urine sed) [#/Area] 50-100 [HPF] [facility] Automated leukocytes count i n urine sediment (number/area)Ordered By: Tommy Bowen on 08-07-2021 WBC Auto (Urine sed) [#/Area] 10-19 [HPF] [facility] Basophils Auto (Bld) [#/Vol] Ordered By: Tommy Bowen on 08-07-2021 Basophils (Bld) [#/Vol] 0.0 10*3/uL 0.0-0.2 [facility] Basophils/100 WBC Auto (Bld) Ordered By: Tommy Bowen on 08-07-2021 Basophils/100 WBC (Bld) 0.4 % [facility] Bilirubin Test strip Ql (U)O rdered By: Tommy Bowen on 08-07-2021 Bilirubin Ql (U) Negative Negative [facility] Blood hemoglobin measurement (mass/volume)Ordered By: Tommy Bowen on 08-07-2021 Hemoglobin (Bld) [Mass/Vol] 14.1 g/dL 11.8-15.4 [facility] Blood leukocytes automated c ount (number/volume)Ordered By: Tommy Bowen on 08-07-2021 WBC (Bld) [#/Vol] 10.0 10*3/uL 4.5-11.0 [facility] Color Auto (U)Ordered By: Hermes Bowen on 08-07-2021 Color (U) Yellow Yellow [facility] Creatinine and Glomerular fi ltration rate.predicted panel (S/P/Bld)Ordered By: Tommy Bowen on 08-07-2021 Creatinine [Mass/Vol] 0.75 mg/dL 0.44-1.03 [facility] Eosinophils Auto (Bld) [#/Vo l]Ordered By: Tommy Bowen on 08-07-2021 Eosinophils (Bld) [#/Vol] 0.0 10*3/uL 0.0-0.45 [facility] Eosinophils/100 WBC Auto (Bl d)Ordered By: Tommy Bowen on 08-07-2021 Eosinophils/100 WBC (Bld) 0.4 % [facility] Erythrocyte distribution wid th Auto (RBC) [Ratio]Ordered By: Tommy Bowen on 08-07-2021 Erythrocyte distribution width (RBC) [Ratio] 12.7 % 11.9-15.3 [facility] Estimated glomerular filtrat ion rate (GFR) non- AmericanOrdered By: Tommy Bowen on 08-07-2021 GFR/1.73 sq M.predicted among non-blacks MDRD (S/P/Bld) [Vol rate/Area] > 60 mL/Min [facility] Globulin Calc (S) [Mass/Vol] Ordered By: Tommy Bowen on 08-07-2021 Globulin (S) [Mass/Vol] 3.6 g/dL [facility] Hematocrit Auto (Bld) [Volum e fraction]Ordered By: Tommy Bowen on 08-07-2021 Hematocrit (Bld) [Volume fraction] 41.5 % 34.0-46.4 [facility] Ketones Auto test strip (U) [Mass/Vol]Ordered By: Tommy Bowen on 08-07-2021 Ketones (U) [Mass/Vol] [facility] and Cell countsOrdered By: Tommy Bowen on 08-07-2021 Nucleated RBC/100 WBC (Bld) [Ratio] 0.0 % 0-0.5 [facility] Laboratory - UrinalysisOrder ed By: Tommy Bowen on 08-07-2021 Hyaline casts LM Ql (Urine sed) 0-8 [LPF] [facility] Lymphocytes Auto (Bld) [#/Vo l]Ordered By: Tommy Bowen on 08-07-2021 Lymphocytes (Bld) [#/Vol] 2.5 10*3/uL 1.00-4.8 [facility] Lymphocytes/100 WBC Auto (Bl d)Ordered By: Tommy Bowen on 08-07-2021 Lymphocytes/100 WBC (Bld) 25.4 % [facility] MCH Auto (RBC) [Entitic mass ]Ordered By: Tommy Bowen on 08-07-2021 MCH (RBC) [Entitic mass] 29.8 pg 24.7-34.3 [facility] MCHC Auto (RBC) [Mass/Vol]Or dered By: Tommy Bowen on 08-07-2021 MCHC (RBC) [Mass/Vol] 33.9 g/dL 32.0-35.0 [facility] MCV Auto (RBC) [Entitic vol] Ordered By: Tommy Bowen on 08-07-2021 MCV (RBC) [Entitic vol] 87.7 fL 80-100 [facility] Monocytes Auto (Bld) [#/Vol] Ordered By: Tommy Bowen on 08-07-2021 Monocytes (Bld) [#/Vol] 0.8 10*3/uL 0.0-0.8 [facility] Monocytes/100 WBC Auto (Bld) Ordered By: Tommy Bowen on 08-07-2021 Monocytes/100 WBC (Bld) 7.8 % [facility] Neutrophils Auto (Bld) [#/Vo l]Ordered By: Tommy Bowen on 08-07-2021 Neutrophils (Bld) [#/Vol] 6.6 10*3/uL 1.8-7.7 [facility] Neutrophils/100 WBC Auto (Bl d)Ordered By: Tommy Bowen on 08-07-2021 Neutrophils/100 WBC (Bld) 66.0 % [facility] Nitrite Test strip Ql (U)Ord ered By: Tommy Bowen on 08-07-2021 Nitrite Ql (U) Negative Negative [facility] No Panel InformationOrdered By: Tommy Bowen on 08-07-2021 Estimated GFR () > 60 mL/Min [facility] Comment on above: GFR estimated refere nce range: According to KDOQI guidelines, <60 ml/min/1.73m2 is sufficient to diagnose a patient with chronic kidney disease. Pharmacy Creatinine Clearance (Chem N/A [facility] Platelet mean volume Auto (B ld) [Entitic vol]Ordered By: Tommy Bowen on 08-07-2021 Platelet mean volume (Bld) [Entitic vol] 7.5 fL 6.3-10.7 [facility] Platelets Auto (Bld) [#/Vol] Ordered By: Tommy Bowen on 08-07-2021 Platelets (Bld) [#/Vol] 325 10*3/uL 150-450 [facility] Protein Auto test strip (U) [Mass/Vol]Ordered By: Tommy Bowen on 08-07-2021 Protein (U) [Mass/Vol] 30 mg/dL Negative [facility] Protein [Mass/volume] in Ser um or PlasmaOrdered By: Tommy Bowen on 08-07-2021 Protein [Mass/Vol] 8.0 g/dL 6.1-7.9 [facility] RBC Auto (Bld) [#/Vol]Ordere d By: Tommy Bowen on 08-07-2021 RBC (Bld) [#/Vol] 4.73 10*6/uL 3.60-5.00 [facility] Serum or plasma alanine white otransferase measurement without P-5'-P (enzymatic activiOrdered By: Tommy Bowen on 08-07-2021 ALT No additional P-5'-P [Catalytic activity/Vol] 9 U/L 10-60 [facility] Serum or plasma albumin/glob ulin mass ratioOrdered By: Tommy Bowen on 08-07-2021 Albumin/Globulin [Mass ratio] 1.2 {ratio} [facility] Serum or plasma alkaline ignacio sphatase measurement (enzymatic activity/volume)Ordered By: Tommy Bowen on 08-07-2021 ALP [Catalytic activity/Vol] 56 U/L 32-92 [facility] Serum or plasma aspartate am inotransferase measurement (enzymatic activity/volume)Ordered By: Tommy Bowen on 08-07-2021 AST [Catalytic activity/Vol] 19 U/L 10-42 [facility] Serum or plasma calcium randi urement (mass/volume)Ordered By: Tommy Bowen on 08-07-2021 Calcium [Mass/Vol] 9.3 mg/dL 8.2-10.2 [facility] Serum or plasma chloride melonie surement (moles/volume)Ordered By: Tommy Bowen on 08-07-2021 Chloride [Moles/Vol] 102 mmol/L 95-114 [facility] Serum or plasma glucose randi urement (mass/volume)Ordered By: Tommy Bowen on 08-07-2021 Glucose [Mass/Vol] 88 mg/dL 70-100 [facility] Comment on above: ADA recommended refe rence rangeRandom Glucose Reference Range is dependent on time and content of last meal. Glucose of more than 200 mg/dL in a nonstressed, ambulatory subject supports the diagnosis of Diabetes Mellitus. Serum or plasma potassium me asurement (moles/volume)Ordered By: Tommy Bowen on 08-07-2021 Potassium [Moles/Vol] 3.7 mmol/L 3.5-5.1 [facility] Serum or plasma sodium measu rement (moles/volume)Ordered By: Tommy Bowen on 08-07-2021 Sodium [Moles/Vol] 135 mmol/L 136-146 [facility] Serum or plasma total biliru bin measurement (mass/volume)Ordered By: Tommy Bowen on 08-07-2021 Bilirubin [Mass/Vol] 0.6 mg/dL 0.3-1.2 [facility] Serum or plasma total carbon dioxide measurement (moles/volume)Ordered By: Tommy Bowen on 08-07-2021 CO2 [Moles/Vol] 21.2 mmol/L 22.0-30.0 [facility] Serum or plasma urea nitroge n measurement (mass/volume)Ordered By: Tommy Bowen on 08-07-2021 Urea nitrogen [Mass/Vol] 10 mg/dL 9-23 [facility] Specific gravity Auto test s trip (U) [Rel density]Ordered By: Tommy Bowen on 08-07-2021 Specific gravity (U) [Rel density] 1.018 1.001-1.03 0 [facility] Squamous epithelial cells de tection in urine sediment by light microscopyOrdered By: Tommy Bowen on 08-07-2021 Epithelial cells.squamous LM Ql (Urine sed) 3-4 [HPF] [facility] Urine bacteria detection by automated methodOrdered By: Tommy Bowen on 08-07-2021 Bacteria Auto Ql (U) None seen None Seen [facility] Urine clarity by refractomet ry automatedOrdered By: Tommy Bowen on 08-07-2021 Clarity Refractometry automated (U) Clear Clear [facility] Urine culture routineOrdered By: Tommy Bowen on 08-07-2021 Bacteria identified Cx Nom (U) No Growth 2 Days [facility] Urine glucose measurement by automated test strip (mass/volume)Ordered By: Tommy Bowen on 08-07-2021 Glucose Auto test strip (U) [Mass/Vol] Normal mg/dL Normal [facility] Urine hemoglobin detection b y automated test stripOrdered By: Tommy Bowen on 08-07-2021 Hemoglobin Auto test strip Ql (U) 2+ Negative [facility] Urine leukocyte esterase det ection by automated test stripOrdered By: Tommy Bowen on 08-07-2021 Leukocyte esterase Auto test strip Ql (U) 2+ Negative [facility] Urobilinogen Auto test strip (U) [Mass/Vol]Ordered By: Tommy Bowen on 08-07-2021 Urobilinogen (U) [Mass/Vol] Normal mg/dL Normal [facility] pH Auto test strip (U)Ordere d By: Tommy Bowen on 08-07-2021 pH (U) 7.0 [pH] 5.0-9.0 [facility] Albumin [Mass/volume] in Ser um or PlasmaOrdered By: Bobby Rojas on 07-10-2021 Albumin [Mass/Vol] 3.8 g/dL 3.2-5.5 [facility] Automated erythrocytes count in urine sediment (number/area)Ordered By: Bobby Rojas on 07-10-2021 RBC Auto (Urine sed) [#/Area] Innumerable [HPF] [facility] Automated leukocytes count i n urine sediment (number/area)Ordered By: Bobby Rojas on 07-10-2021 WBC Auto (Urine sed) [#/Area] 5-9 [HPF] [facility] Basophils Auto (Bld) [#/Vol] Ordered By: Bobby Rojas on 07-10-2021 Basophils (Bld) [#/Vol] 0.0 10*3/uL 0.0-0.2 [facility] Basophils/100 WBC Auto (Bld) Ordered By: Bobby Rojas on 07-10-2021 Basophils/100 WBC (Bld) 0.6 % [facility] Bilirubin Test strip Ql (U)O rdered By: Bobby Rojas on 07-10-2021 Bilirubin Ql (U) Negative Negative [facility] Blood hemoglobin measurement (mass/volume)Ordered By: Bobby Rojas on 07-10-2021 Hemoglobin (Bld) [Mass/Vol] 13.2 g/dL 11.8-15.4 [facility] Blood leukocytes automated c ount (number/volume)Ordered By: Bobby Rojas on 07-10-2021 WBC (Bld) [#/Vol] 5.8 10*3/uL 4.5-11.0 [facility] Color Auto (U)Ordered By: Victorino Rojas on 07-10-2021 Color (U) Red Yellow [facility] Creatinine and Glomerular fi ltration rate.predicted panel (S/P/Bld)Ordered By: Bobby Rojas on 07-10-2021 Creatinine [Mass/Vol] 0.80 mg/dL 0.44-1.03 [facility] Eosinophils Auto (Bld) [#/Vo l]Ordered By: Bobby Rojas on 07-10-2021 Eosinophils (Bld) [#/Vol] 0.1 10*3/uL 0.0-0.45 [facility] Eosinophils/100 WBC Auto (Bl d)Ordered By: Bobby Rojas on 07-10-2021 Eosinophils/100 WBC (Bld) 1.4 % [facility] Erythrocyte distribution wid th Auto (RBC) [Ratio]Ordered By: Bobby Rojas on 07-10-2021 Erythrocyte distribution width (RBC) [Ratio] 13.0 % 11.9-15.3 [facility] Estimated glomerular filtrat ion rate (GFR) non- AmericanOrdered By: Bobby Rojas on 07-10-2021 GFR/1.73 sq M.predicted among non-blacks MDRD (S/P/Bld) [Vol rate/Area] > 60 mL/Min [facility] Globulin Calc (S) [Mass/Vol] Ordered By: Bobby Rojas on 07-10-2021 Globulin (S) [Mass/Vol] 2.7 g/dL [facility] Hematocrit Auto (Bld) [Volum e fraction]Ordered By: Bobby Rojas on 07-10-2021 Hematocrit (Bld) [Volume fraction] 38.6 % 34.0-46.4 [facility] Ketones Auto test strip (U) [Mass/Vol]Ordered By: Bobby Rojas on 07-10-2021 Ketones (U) [Mass/Vol] Negative Negative Fi [facility] Laboratory - Chemistry and C hemistry - challengeOrdered By: Bobby Rojas on 07-10-2021 Magnesium [Mass/Vol] 2.0 mg/dL 1.6-2.6 [facility] Laboratory - Hematology and Cell countsOrdered By: Bobby Rojas on 07-10-2021 Nucleated RBC/100 WBC (Bld) [Ratio] 0.3 % 0-0.5 [facility] Laboratory - UrinalysisOrder ed By: Bobby Rojas on 07-10-2021 Hyaline casts LM Ql (Urine sed) 0-8 [LPF] [facility] Lymphocytes Auto (Bld) [#/Vo l]Ordered By: Bobby Rojas on 07-10-2021 Lymphocytes (Bld) [#/Vol] 2.0 10*3/uL 1.00-4.8 [facility] Lymphocytes/100 WBC Auto (Bl d)Ordered By: Bobby Rojas on 07-10-2021 Lymphocytes/100 WBC (Bld) 34.4 % [facility] MCH Auto (RBC) [Entitic mass ]Ordered By: Bobby Rojas on 07-10-2021 MCH (RBC) [Entitic mass] 30.9 pg 24.7-34.3 [facility] MCHC Auto (RBC) [Mass/Vol]Or dered By: Bobby Rojas on 07-10-2021 MCHC (RBC) [Mass/Vol] 34.2 g/dL 32.0-35.0 [facility] MCV Auto (RBC) [Entitic vol] Ordered By: Bobby Rojas on 07-10-2021 MCV (RBC) [Entitic vol] 90.3 fL 80-100 [facility] Monocytes Auto (Bld) [#/Vol] Ordered By: Bobby Rojas on 07-10-2021 Monocytes (Bld) [#/Vol] 0.4 10*3/uL 0.0-0.8 [facility] Monocytes/100 WBC Auto (Bld) Ordered By: Bobby Rojas on 07-10-2021 Monocytes/100 WBC (Bld) 7.4 % [facility] Neutrophils Auto (Bld) [#/Vo l]Ordered By: Bobby Rojas on 07-10-2021 Neutrophils (Bld) [#/Vol] 3.3 10*3/uL 1.8-7.7 [facility] Neutrophils/100 WBC Auto (Bl d)Ordered By: Bobby Rojas on 07-10-2021 Neutrophils/100 WBC (Bld) 56.2 % [facility] Nitrite Test strip Ql (U)Ord ered By: Bobby Rojas on 07-10-2021 Nitrite Ql (U) Negative Negative [facility] No Panel InformationOrdered By: Bobby Rojas on 07-10-2021 Estimated GFR () > 60 mL/Min [facility] Comment on above: GFR estimated refere nce range: According to KDOQI guidelines, <60 ml/min/1.73m2 is sufficient to diagnose a patient with chronic kidney disease. Pharmacy Creatinine Clearance (Chem 84.65 [facility] Phosphate [Mass/volume] in S alexis or PlasmaOrdered By: Bobby Rojas on 07-10-2021 Phosphate [Mass/Vol] 2.6 mg/dL 2.5-4.6 [facility] Platelet mean volume Auto (B ld) [Entitic vol]Ordered By: Bobby Rojas on 07-10-2021 Platelet mean volume (Bld) [Entitic vol] 8.2 fL 6.3-10.7 [facility] Platelets Auto (Bld) [#/Vol] Ordered By: Bobby Rojas on 07-10-2021 Platelets (Bld) [#/Vol] 243 10*3/uL 150-450 [facility] Protein Auto test strip (U) [Mass/Vol]Ordered By: Bobby Rojas on 07-10-2021 Protein (U) [Mass/Vol] Trace mg/dL Negative [facility] Protein [Mass/volume] in Ser um or PlasmaOrdered By: Bobby Rojas on 07-10-2021 Protein [Mass/Vol] 6.5 g/dL 6.1-7.9 [facility] RBC Auto (Bld) [#/Vol]Ordere d By: Bobby Rojas on 07-10-2021 RBC (Bld) [#/Vol] 4.27 10*6/uL 3.60-5.00 [facility] Serum or plasma alanine white otransferase measurement without P-5'-P (enzymatic activiOrdered By: Bobby Rojas on 07-10-2021 ALT No additional P-5'-P [Catalytic activity/Vol] 9 U/L 10-60 [facility] Serum or plasma albumin/glob ulin mass ratioOrdered By: Bobby Rojas on 07-10-2021 Albumin/Globulin [Mass ratio] 1.4 {ratio} [facility] Serum or plasma alkaline ignacio sphatase measurement (enzymatic activity/volume)Ordered By: Bobby Rojas on 07-10-2021 ALP [Catalytic activity/Vol] 43 U/L 32-92 [facility] Serum or plasma aspartate am inotransferase measurement (enzymatic activity/volume)Ordered By: Bobby Rojas on 07-10-2021 AST [Catalytic activity/Vol] 19 U/L 10-42 [facility] Serum or plasma calcium randi urement (mass/volume)Ordered By: Bobby Rojas on 07-10-2021 Calcium [Mass/Vol] 9.0 mg/dL 8.2-10.2 [facility] Serum or plasma chloride melonie surement (moles/volume)Ordered By: Bobby Rojas on 07-10-2021 Chloride [Moles/Vol] 103 mmol/L 95-114 [facility] Serum or plasma glucose randi urement (mass/volume)Ordered By: Bobby Rojas on 07-10-2021 Glucose [Mass/Vol] 96 mg/dL 70-100 [facility] Comment on above: ADA recommended refe rence rangeRandom Glucose Reference Range is dependent on time and content of last meal. Glucose of more than 200 mg/dL in a nonstressed, ambulatory subject supports the diagnosis of Diabetes Mellitus. Serum or plasma potassium me asurement (moles/volume)Ordered By: Bobby Rojas on 07-10-2021 Potassium [Moles/Vol] 3.4 mmol/L 3.5-5.1 [facility] Serum or plasma sodium measu rement (moles/volume)Ordered By: Bobby Rojas on 07-10-2021 Sodium [Moles/Vol] 140 mmol/L 136-146 [facility] Serum or plasma total biliru bin measurement (mass/volume)Ordered By: Bobby Rojas on 07-10-2021 Bilirubin [Mass/Vol] 0.6 mg/dL 0.3-1.2 [facility] Serum or plasma total carbon dioxide measurement (moles/volume)Ordered By: Bobby Rojas on 07-10-2021 CO2 [Moles/Vol] 25.5 mmol/L 22.0-30.0 [facility] Serum or plasma urea nitroge n measurement (mass/volume)Ordered By: Bobby Rojas on 07-10-2021 Urea nitrogen [Mass/Vol] 6 mg/dL 9-23 [facility] Specific gravity Auto test s trip (U) [Rel density]Ordered By: Bobby Rojas on 07-10-2021 Specific gravity (U) [Rel density] 1.007 1.001-1.03 0 [facility] Squamous epithelial cells de tection in urine sediment by light microscopyOrdered By: Bobby Rojas on 07-10-2021 Epithelial cells.squamous LM Ql (Urine sed) 1-2 [HPF] [facility] Urine bacteria detection by automated methodOrdered By: Bobby Rojas on 07-10-2021 Bacteria Auto Ql (U) 2+ None Seen [facility] Urine clarity by refractomet ry automatedOrdered By: Bobby Rojas on 07-10-2021 Clarity Refractometry automated (U) Clear Clear [facility] Urine culture routineOrdered By: Bobby Rojas on 07-10-2021 Bacteria identified Cx Nom (U) Escherichia coli [facility] Urine glucose measurement by automated test strip (mass/volume)Ordered By: Bobby Rojas on 07-10-2021 Glucose Auto test strip (U) [Mass/Vol] Normal mg/dL Normal [facility] Urine hemoglobin detection b y automated test stripOrdered By: Bobby Rojas on 07-10-2021 Hemoglobin Auto test strip Ql (U) 3+ Negative [facility] Urine leukocyte esterase det ection by automated test stripOrdered By: Bobby Rojas on 07-10-2021 Leukocyte esterase Auto test strip Ql (U) 2+ Negative [facility] Urobilinogen Auto test strip (U) [Mass/Vol]Ordered By: Bobby Rojas on 07-10-2021 Urobilinogen (U) [Mass/Vol] Normal mg/dL Normal [facility] pH Auto test strip (U)Ordere d By: Bobby Rojas on 07-10-2021 pH (U) 7.5 [pH] 5.0-9.0 [facility] Keppraon 03-24-2021 KEPP 13 ug/mL Normal [facility] Comment on above: Result Comment: A [...] known. Performed By: #### BERTO GOMEZO #### [facility] [address] [place] [address] Veterans Service Officer: Jhon Rios MD #### CP, MG, CDP #### [facility] [address] [place] [address] Veterans Service Officer: Marv Nieves DO Lamotrigineon Lamotrigine <1.0 Low 3.0-15.0 [facility] Comment on above: Result Comment: Neither [...] needed. Performed By: #### BERTO GOMEZO #### [employer] [address] [place] [address] Veterans Service Officer: Jhon Rios MD #### ELAN, MG, CDP #### [facility] [address] [place] [address] Veterans Service Officer: Marv Nieves DO CBC with Diffon 03-23-2021 Abs. Basophil 0.00 k/uL Normal 0.0-0.2 [facility] Comment on above: Performed By: #### BERTO GOMEZO #### [facility] [address] [place] [address] Veterans Service Officer: Jhon Rios MD #### CP, MG, CDP #### [facility] [address] [place] [address] Veterans Service Officer: Marv Nieves DO Abs.Neutrophil (Seg) 4.60 k/uL Normal 1.3-9.1 [facility] Comment on above: Performed By: #### DYLON GOMEZ #### [address] [address] Veterans Service Officer: Jhon Rios MD #### CP, MG, CDP #### [facility] [address] [place] [address] Veterans Service Officer: Marv Nieves DO Basophils/100 WBC (Bld) 1 % Normal 0-2 [facility] Comment on above: Performed By: #### DYLON GOMEZ #### [address] [address] Veterans Service Officer: Jhon Rios MD #### ELAN, MG, CDP #### [facility] [address] [place] [address] Veterans Service Officer: Marv Nieves DO Eosinophils (Bld) [#/Vol] 0.10 10*3/uL Normal 0.0-0.4 [facility] Comment on above: Performed By: #### DYLON GOMEZ #### [address] [address] Veterans Service Officer: Jhon Rios MD #### CP, MG, CDP #### [facility] [address] [place] [address] Veterans Service Officer: Marv Nieves DO Eosinophils/100 WBC (Bld) 1 % Normal 0-4 [facility] Comment on above: Performed By: #### DYLON GOMEZ #### [address] [address] Veterans Service Officer: Jhon Rios MD #### CP, MG, CDP #### [facility] [address] [place] [address] Veterans Service Officer: Marv Nieves DO Erythrocyte distribution width (RBC) [Ratio] 12.4 % Normal 11.5-14.9 [facility] Comment on above: Performed By: #### DYLON GOMEZ #### [address] [address] Veterans Service Officer: Jhon Rios MD #### MG ELAN, CDP #### [facility] [place] [address] Veterans Service Officer: Marv Nieves DO Hematocrit (Bld) [Volume fraction] 43.3 % Normal 36-46 [facility] Comment on above: Performed By: #### DYLON GOMEZ #### [address] [address] Veterans Service Officer: Jhon Rios MD #### MG ELAN, CDP #### [facility] [address] [place] [address] Veterans Service Officer: Marv Nieves DO Hemoglobin (Bld) [Mass/Vol] 14.8 g/dL Normal 12.0-16.0 [facility] Comment on above: Performed By: #### DYLON GOMEZ #### [address] [address] Veterans Service Officer: Jhon Rios MD #### MG ELAN, CDP #### [facility] [place] [address] Veterans Service Officer: Marv Nieves DO Lymphocytes (Bld) [#/Vol] 2.90 10*3/uL Normal 1.2-5.2 [facility] Comment on above: Performed By: #### DYLON GOMEZ #### [address] [address] Veterans Service Officer: Jhon Rios MD #### MG ELAN, CDP #### [facility] [address] [place] [address] Veterans Service Officer: Marv Nieves DO Lymphocytes/100 WBC (Bld) 36 % Normal 25-45 [facility] Comment on above: Performed By: #### DYLON GOMEZ #### [address] [address] Veterans Service Officer: Jhon Rios MD #### ELAN, MG, CDP #### [facility] [address] [place] [address] Veterans Service Officer: Marv Nieves DO MCH (RBC) [Entitic mass] 30.8 pg Normal 26-34 [facility] Comment on above: Performed By: #### DYLON GOMEZ #### [address] [address] Veterans Service Officer: Jhon Rios MD #### MG ELAN, CDP #### [facility] [address] [place] [address] Veterans Service Officer: Marv Nieves DO MCHC (RBC) [Mass/Vol] 34.1 g/dL Normal 31-37 [facility] Comment on above: Performed By: #### DYLON GOMEZ #### [address] [address] Veterans Service Officer: Jhon Rios MD #### ELAN, MG, CDP #### [facility] [address] [place] [address] Veterans Service Officer: Marv Nieves DO MCV (RBC) [Entitic vol] 90.1 fL Normal 80-100 [facility] Comment on above: Performed By: #### DYLON GOMEZ #### [address] [address] Veterans Service Officer: Jhon Rios MD #### CP, MG, CDP #### [facility] [address] [place] [address] Veterans Service Officer: Marv Nieves DO Monocytes (Bld) [#/Vol] 0.50 10*3/uL Normal 0.1-1.3 [facility] Comment on above: Performed By: #### DYLON GOMEZ #### [address] [address] Veterans Service Officer: Jhon Rios MD #### ELAN, MG, CDP #### [facility] [address] [place] [address] Veterans Service Officer: Marv Nieves DO Monocytes/100 WBC (Bld) 6 % Normal 2-8 [facility] Comment on above: Performed By: #### DYLON GOMEZ #### [address] [address] Veterans Service Officer: Jhon Rios MD #### ELAN, MG, CDP #### [facility] [address] [place] [address] Veterans Service Officer: Marv Nieves DO Neutrophil (Seg) 56 % Normal 34-64 [facility] Comment on above: Performed By: #### DYLON GOMEZ #### [address] [address] Veterans Service Officer: Jhon Rios MD #### CP, MG, CDP #### [facility] [address] [place] [address] Veterans Service Officer: Marv Nieves DO Platelet mean volume (Bld) [Entitic vol] 7.4 fL Normal 6.0-12.0 [facility] Comment on above: Performed By: #### DYLON GOMEZ #### [address] [address] Veterans Service Officer: Jhon Rios MD #### CP, MG, CDP #### [facility] [address] [place] [address] Veterans Service Officer: Marv Nieves DO Platelets (Bld) [#/Vol] 279 10*3/uL Normal 150-450 [facility] Comment on above: Performed By: #### DYLON GOMEZ #### [address] [address] Veterans Service Officer: Jhon Rios MD #### CP, MG, CDP #### [facility] [address] [place] [address] Veterans Service Officer: Marv Nieves DO RBC (Bld) [#/Vol] 4.81 10*6/uL Normal 4.0-5.2 [facility] Comment on above: Performed By: #### DYLON GOMEZ #### [address] [address] Veterans Service Officer: Jhon Rios MD #### ELAN, MG, CDP #### [facility] [place] [address] Veterans Service Officer: Marv Nieves DO WBC (Bld) [#/Vol] 8.1 10*3/uL Normal 4.5-13.5 [facility] Comment on above: Performed By: #### DYLON GOMEZ #### [address] [address] Veterans Service Officer: Jhon Rios MD #### CP, MG, CDP #### [facility] [address] [place] [address] Veterans Service Officer: Marv Nieves DO Abs.Imm.Granulocyte NOT REPORTED Normal 0.00-0.30 [facility] Comment on above: Performed By: #### DYLON GOMEZ #### [facility] [address] [place] [address] Veterans Service Officer: Jhon Rios MD #### CP, MG, CDP #### [facility] [address] [place] [address] Veterans Service Officer: Marv Nieves DO Auto Diff Performed NOT REPORTED Normal [facility] Comment on above: Performed By: #### DYLON GOMEZ #### [facility] [address] [place] [address] Veterans Service Officer: Jhon Rios MD #### CP, MG, CDP #### [facility] [address] [place] [address] Veterans Service Officer: Marv Nieves DO Immature Granulocyte NOT REPORTED Normal 0 [facility] Comment on above: Performed By: #### DYLON GOMEZ #### [address] [address] Veterans Service Officer: Jhon Rios MD #### CP, MG, CDP #### [facility] [address] [place] [address] Veterans Service Officer: Marv Nieves DO NRBC Automated NOT REPORTED Normal [facility] Comment on above: Performed By: #### DYLON GOMEZ #### [address] [address] Veterans Service Officer: Jhon Rios MD #### CP, MG, CDP #### [facility] [address] [place] [address] Veterans Service Officer: Marv Nieves DO Platelet Estimate NOT REPORTED Normal [facility] Comment on above: Performed By: #### K BERTO RONO #### [facility] [address] [place] [address] Veterans Service Officer: Jhon Rios MD #### CP, MG, CDP #### [facility] [address] [facility] [place] [address] Veterans Service Officer: Marv Nieves DO RBC morphology finding Nom (Bld) NOT REPORTED Normal [facility] Comment on above: Performed By: #### K ARIADNE, LAMO #### [facility] [address] [place] [address] Veterans Service Officer: Jhon Rios MD #### CP, MG, CDP #### [facility] [address] [facility] [place] [address] Veterans Service Officer: Marv Nieves DO WBC Morphology NOT REPORTED Normal [facility] Comment on above: Performed By: #### K ARIADNE, LAMO #### [address] [address] Veterans Service Officer: Jhon Rios MD #### ELAN, MG, CDP #### [facility] [address] [place] [address] Veterans Service Officer: Marv Nieves DO Comp Metabolic Profon 2020 (cont.) Normal [facility] Comment on above: Result Comment: Aver age GFR for <20 years old not available. Chronic Kidney Disease: <60 mL/min/1.73sq m Kidney failure: <15 mL/min/1.73sq m eGFR calculated using average adult body mass. Additional eGFR calculator available at: [email or web address]/multiple_crcl_[email or web address].htm Performed By: #### K BERTO RONO #### [address] [address] Veterans Service Officer: Jhon Rios MD #### CP, MG, CDP #### [facility] [address] [place] [address] Veterans Service Officer: Marv Nieves DO Albumin [Mass/Vol] 4.6 g/dL Normal 3.5-5.2 [facility] Comment on above: Performed By: #### DYLON GOMEZ #### [address] [address] Veterans Service Officer: Jhon Rios MD #### CP, MG, CDP #### [facility] [address] [place] [address] Veterans Service Officer: Marv Nieves DO Alkaline Phos 67 U/L Normal 35-104 [facility] Comment on above: Performed By: #### DYLON GOMEZ #### [address] [address] Veterans Service Officer: Jhon Rios MD #### ELAN, MG, CDP #### [facility] [address] [place] [address] Veterans Service Officer: Marv Nieves DO ALT [Catalytic activity/Vol] 10 U/L Normal 5-33 [facility] Comment on above: Performed By: #### DYLON GOMEZ #### [address] [address] Veterans Service Officer: Jhon Rios MD #### ELAN, MG, CDP #### [facility] [address] [place] [address] Veterans Service Officer: Marv Nieves DO Anion gap [Moles/Vol] 10 mmol/L Normal 9-17 [facility] Comment on above: Performed By: #### DYLON GOMEZ #### [address] [address] Veterans Service Officer: Jhon Rios MD #### CP, MG, CDP #### [facility] [address] [place] [address] Veterans Service Officer: Marv Nieves DO AST [Catalytic activity/Vol] 12 U/L Normal <32 [facility] Comment on above: Performed By: #### DYLON GOMEZ #### [address] [address] Veterans Service Officer: Jhon Rios MD #### CP, MG, CDP #### [facility] [address] [place] [address] Veterans Service Officer: Marv Nieves DO Bilirubin [Mass/Vol] 0.40 mg/dL Normal 0.3-1.2 [facility] Comment on above: Performed By: #### DYLON GOMEZ #### [address] [address] Veterans Service Officer: Jhon Rios MD #### ELAN, MG, CDP #### [facility] [address] [place] [address] Veterans Service Officer: Marv Nieves DO Calcium [Mass/Vol] 9.3 mg/dL Normal 8.6-10.4 [facility] Comment on above: Performed By: #### DYLON GOMEZ #### [address] [address] Veterans Service Officer: Jhon Rios MD #### ELAN, MG, CDP #### [facility] [place] [address] Veterans Service Officer: Marv Nieves DO Chloride [Moles/Vol] 101 mmol/L Normal 98-107 [facility] Comment on above: Performed By: #### DYLON GOMEZ #### [address] [address] Veterans Service Officer: Jhon Rios MD #### CP, MG, CDP #### [facility] [address] [place] [address] Veterans Service Officer: Marv Nieves DO CO2 [Moles/Vol] 25 mmol/L Normal 20-31 [facility] Comment on above: Performed By: #### DYLON GOMEZ #### [address] [address] Veterans Service Officer: Jhon Rios MD #### CP, MG, CDP #### [facility] [address] [place] [address] Veterans Service Officer: Mavr Nieves DO Creatinine [Mass/Vol] 0.71 mg/dL Normal 0.50-0.90 [facility] Comment on above: Performed By: #### DYLON GOMEZ #### [address] [address] Veterans Service Officer: Jhon Rios MD #### ELAN MG, CDP #### [facility] [address] [place] [address] Veterans Service Officer: Marv Nieves DO GFR,non Amer Pediatric GFR requi res additional information. Refer to NKDEP website for Normal >60 [facility] Comment on above: Result Comment: calc ulator. Performed By: #### DYLON GOMEZ #### [address] [address] Veterans Service Officer: Jhon Rios MD #### ELAN, MG, CDP #### [facility] [address] [place] [address] Veterans Service Officer: Marv Nieves DO Glucose [Mass/Vol] 90 mg/dL Normal 70-99 [facility] Comment on above: Performed By: #### DYLON GOMEZ #### [address] [address] Veterans Service Officer: Jhon Rios MD #### ELAN, MG, CDP #### [facility] [address] [place] [address] Veterans Service Officer: Marv Nieves DO Potassium [Moles/Vol] 3.8 mmol/L Normal 3.7-5.3 [facility] Comment on above: Performed By: #### DYLON GOMEZ #### [address] [address] Veterans Service Officer: Jhon Rios MD #### ELAN, MG, CDP #### [facility] [address] [place] [address] Veterans Service Officer: Marv Nieves DO Protein [Mass/Vol] 7.8 g/dL Normal 6.4-8.3 [facility] Comment on above: Performed By: #### DYLON GOMEZ #### [address] [address] Veterans Service Officer: Jhon Rios MD #### ELAN, MG, CDP #### [facility] [address] [place] [address] Veterans Service Officer: Marv Nieves DO Sodium [Moles/Vol] 136 mmol/L Normal 135-144 [facility] Comment on above: Performed By: #### DYLON GOMEZ #### [address] [address] Veterans Service Officer: Jhon Rios MD #### ELAN, MG, CDP #### [facility] [address] [place] [address] Veterans Service Officer: Marv Nieves DO Urea nitrogen [Mass/Vol] 11 mg/dL Normal 6-20 [facility] Comment on above: Performed By: #### BERTO GOMEZO #### [address] [address] Veterans Service Officer: Jhon Rios MD #### ELAN, MG, CDP #### [facility] [address] [place] [address] Veterans Service Officer: Marv Nieves DO Albumin/Glob Ratio NOT REPORTED Normal 1.0-2.5 [facility] Comment on above: Performed By: #### DYLON GOMEZ #### [address] [address] Veterans Service Officer: Jhon Rios MD #### CP, MG, CDP #### [facility] [address] [place] [address] Veterans Service Officer: Marv Nieves DO BUN/CRE Ratio NOT REPORTED Normal 9-20 [facility] Comment on above: Performed By: #### DYLON GOMEZ #### [address] [address] Veterans Service Officer: Jhon Rios MD #### CP, MG, CDP #### [facility] [address] [place] [address] Veterans Service Officer: Marv Nieves DO GFR, Amer NOT REPORTED Normal >60 [facility] Comment on above: Performed By: #### DYLON GOMEZ #### [address] [address] Veterans Service Officer: Jhon Rios MD #### CP, MG, CDP #### [facility] [place] [address] Veterans Service Officer: Marv Nieves DO Staging: NOT REPORTED Normal [facility] Comment on above: Performed By: #### DYLON GOMEZ #### [address] [address] Veterans Service Officer: Jhon Rios MD #### CP, MG, CDP #### [facility] [place] [address] Veterans Service Officer: Marv Nieves DO HCG, ,Urineon 03-23 Beta HCG ( test) Ql (U) Negative Normal NEG [facility] Comment on above: Result Comment: Spec imens with hCG levels near the threshold of the test (25 mIU/mL) may give a negative or indeterminate result. In such cases, another test should be performed with a new specimen in 48-72 hours. If early is suspected clinically in this setting, correlation with quantitative serum b-hCG level is suggested. Performed By: #### U HCG #### [facility] [address] [facility] [place] [address] Veterans Service Officer: Marv Nieves DO Magnesiumon 03-23-2021 Magnesium [Mass/Vol] 2.2 mg/dL Normal 1.7-2.2 [facility] Comment on above: Performed By: #### K DYLON RON #### [facility] [address] [place] [id number] Veterans Service Officer: Jhon Rios MD #### CP, MG, CDP #### [facility] [address] [place] [address] Veterans Service Officer: Marv Nieves DO CONSULTATIONon 12-05-[address] [address] CONSULTATION PATIENT NAME: KARIS KOVACS : 2000 MED REC NO: [id number] ROOM: [facility] ACCOUNT NO: [id number] ADMIT DATE: 07/17/2017 PROVIDER: Nahun Martini CONSULT [...] is a patient who recently relocated from [place]. The patient has had normal EEGs in the past, was declared as having non-epileptic seizures. The patient is reported to have a neurologist who had counseled her on Lexapro and Xanax. The patient reported to the RN that she identifies as male. The patient was taken to [facility] ED, where she tested positive for THC. [...] grandmother. She tested positive for THC at [facility]. REVIEW OF SYSTEMS: No weight gain [...] any antiepileptic medications. NAHUN MARTINI MERLYN/Suha_SSNCK_I Doc#: [id number] CC: Normal [facility] Vital Signs Date Time Vital Sign Value Performing Clinician Facility 03-06-2025 13:24-0400 Diastolic blood pressure 72 mm[Hg] Shantanu Robles MD Work Phone: [facility] 03-06-2025 13:24-0400 Heart rate 80 /min Shantanu Robles MD Work Phone: [facility] 03-06-2025 13:24-0400 Systolic blood pressure 104 mm[Hg] Shantanu Robles MD Work Phone: [facility] 03-06-2025 13:23-0400 Body height 154.9 cm Shantanu Robles MD Work Phone: [facility] 03-06-2025 13:23-0400 Body mass index (BMI) [Ratio] 19.65 kg/m2 Shantanu Robles MD Work Phone: [facility] 03-06-2025 13:23-0400 Body weight 47.17 kg Shantanu Robles MD Work Phone: [facility] 02-19-2025 12:55-0400 Body mass index (BMI) [Ratio] 18.65 kg/m2 Eden[address] Schmitz [address] Work Phone: [facility] 02-19-2025 12:55-0400 Body weight 46.[address] Work Phone: [facility] 02-15-2025 09:07-0400 Body height 157.5 cm Lavonne Thomas SENIOR STRATEGY ANALYST Work Phone: [facility] 02-15-2025 09:07-0400 Body mass index (BMI) [Ratio] 18.66 kg/m2 Lavonne Thomas SENIOR STRATEGY ANALYST Work Phone: [facility] 02-15-2025 09:07-0400 Body weight 46.27 kg Lavonne Thomas SENIOR STRATEGY ANALYST Work Phone: [facility] 02-06-2025 14:54-0400 Body height 157.5 cm Sierra Anna SENIOR STRATEGY ANALYST Work Phone: [facility] 02-06-2025 14:54-0400 Body mass index (BMI) [Ratio] 18.47 kg/m2 Sierra Anna SENIOR STRATEGY ANALYST Work Phone: [facility] 02-06-2025 14:54-0400 Body weight 45.81 kg Sierra Anna SENIOR STRATEGY ANALYST Work Phone: [facility] 02-06-2025 14:54-0400 Diastolic blood pressure 74 mm[Hg] Sierra Anna SENIOR STRATEGY ANALYST Work Phone: [facility] 02-06-2025 14:54-0400 Systolic blood pressure 118 mm[Hg] Sierra Torressamantalow SENIOR STRATEGY ANALYST Work Phone: [facility] 01-23-2025 13:31-0400 Diastolic blood pressure 82 mm[Hg] Shantanu Robles MD Work Phone: [facility] 01-23-2025 13:31-0400 Systolic blood pressure 110 mm[Hg] Shantanu Robles MD Work Phone: [facility] 01-23-2025 13:30-0400 Body height 157.5 cm Shantanu Robles MD Work Phone: [facility] 01-23-2025 13:30-0400 Body mass index (BMI) [Ratio] 18.14 kg/m2 Shantanu Robles MD Work Phone: [facility] 01-23-2025 13:30-0400 Body weight 45 kg Shantanu Robles MD Work Phone: [facility] 01-23-2025 13:30-0400 Heart rate 74 /min Shantanu Robles MD Work Phone: [facility] 01-04-2025 15:06-0400 Body height 157.5 cm Gale Bassett APRN.MANUFACTURING INSPECTOR Work Phone: [facility] 01-04-2025 15:06-0400 Body mass index (BMI) [Ratio] 16.79 kg/m2 Gale Bassett APRN.MANUFACTURING INSPECTOR Work Phone: [facility] 01-04-2025 15:06-0400 Body weight 41.65 kg Gale Bassett SHOP COOPER.MANUFACTURING INSPECTOR Work Phone: [facility] 01-04-2025 15:06-0400 Diastolic blood pressure 66 mm[Hg] Gale Bassett SHOP COOPER.MANUFACTURING INSPECTOR Work Phone: [facility] 01-04-2025 15:06-0400 Heart rate 77 /min Gale Bassett SHOP COOPER.MANUFACTURING INSPECTOR Work Phone: [facility] 01-04-2025 15:06-0400 SaO2% (BldA) [Mass fraction] 99 % Gale Bassett SHOP COOPER.MANUFACTURING INSPECTOR Work Phone: [facility] 01-04-2025 15:06-0400 Systolic blood pressure 101 mm[Hg] Gale Bassett SHOP COOPER.MANUFACTURING INSPECTOR Work Phone: [facility] 01-03-2025 16:18-0400 Body height 157.5 cm Lavonne Thomas SENIOR STRATEGY ANALYST Work Phone: [facility] 01-03-2025 16:18-0400 Body mass index (BMI) [Ratio] 17.01 kg/m2 Lavonne Thomas SENIOR STRATEGY ANALYST Work Phone: [facility] 01-03-2025 16:18-0400 Body weight 42.19 kg Lavonne Thomas SENIOR STRATEGY ANALYST Work Phone: [facility] 12-06-2024 13:19-0400 Body height 157.5 cm Caleb Easton MD Work Phone: [facility] 12-06-2024 13:19-0400 Body mass index (BMI) [Ratio] 18.11 kg/m2 Caleb Easton MD Work Phone: [facility] 12-06-2024 13:19-0400 Body weight 44.91 kg Caleb Easton MD Work Phone: [facility] 12-06-2024 13:19-0400 Diastolic blood pressure 75 mm[Hg] Caleb Easton MD Work Phone: [facility] 12-06-2024 13:19-0400 Heart rate 82 /min Caleb Easton MD Work Phone: [facility] 12-06-2024 13:19-0400 Systolic blood pressure 118 mm[Hg] Caleb Easton MD Work Phone: [facility] 10-15-2024 15:00-0400 Diastolic blood pressure 67 mm[Hg] Kavin House DO Work Phone: [facility] 10-15-2024 15:00-0400 Heart rate 81 /min Kavin House DO Work Phone: [facility] 10-15-2024 15:00-0400 Respiratory rate 16 /min Akvin House DO Work Phone: [facility] 10-15-2024 15:00-0400 SaO2% (BldA) [Mass fraction] 100 % Kavin House DO Work Phone: [facility] 10-15-2024 15:00-0400 Systolic blood pressure 115 mm[Hg] Kavin House DO Work Phone: [facility] 10-15-2024 12:23-0400 Body height 157.48 cm Kavin House DO Work Phone: [facility] 10-15-2024 12:23-0400 Body weight 44.9 kg Kavin House DO Work Phone: [facility] 09-27-2024 13:55-0400 Body height 157.48 cm [facility] 09-27-2024 13:55-0400 Body mass index (BMI) [Ratio] 18.1 kg/m2 [facility] 09-27-2024 13:55-0400 Body weight 44.9 kg [facility] 09-27-2024 13:55-0400 Diastolic blood pressure 72 mm[Hg] [facility] 09-27-2024 13:55-0400 Heart rate 80 /min [facility] 09-27-2024 13:55-0400 Systolic blood pressure 127 mm[Hg] [facility] 09-03-2024 14:13-0400 Body height 157.5 cm Debbie Mckeon MD Work Phone: [facility] 09-03-2024 14:13-0400 Body mass index (BMI) [Ratio] 17.74 kg/m2 Debbie Mckeon MD Work Phone: [facility] 09-03-2024 14:13-0400 Body weight 44 kg Debbie Mckeon MD Work Phone: [facility] 09-03-2024 14:13-0400 Diastolic blood pressure 74 mm[Hg] Debbie Mckeon MD Work Phone: [facility] 09-03-2024 14:13-0400 Heart rate 77 /min Debbie Mckeon MD Work Phone: [facility] 09-03-2024 14:13-0400 Systolic blood pressure 116 mm[Hg] Debbie Mckeon MD Work Phone: [facility] 08-16-2024 11:38-0500 Body height 157.5 cm Karen Sholey SHOP COOPER-CNM Work Phone: [facility] 08-16-2024 11:38-0500 Body mass index (BMI) [Ratio] 17.74 kg/m2 Karen Sholey SHOP COOPER-CNM Work Phone: [facility] [employer] [facility] 08-16-2024 11:38-0500 Body weight 44 kg Karen Sholey SHOP COOPER-CNM Work Phone: [facility] 08-16-2024 11:38-0500 Diastolic blood pressure 80 mm[Hg] Karen Sholey SHOP COOPER-CNM Work Phone: [facility] 08-16-2024 11:38-0500 Systolic blood pressure 100 mm[Hg] Karen Sholey SHOP COOPER-CNM Work Phone: [facility] [employer] [facility] 07-18-2024 15:48-0500 Body mass index (BMI) [Ratio] 17.92 kg/m2 Gloria Rosenroly RING Work Phone: [facility] 07-18-2024 15:48-0500 Body weight 44.[address] Work Phone: [facility] 06-29-2024 16:32-0500 Body height 157.5 cm Debbie Mckeon MD Work Phone: [facility] 06-29-2024 16:32-0500 Body mass index (BMI) [Ratio] 17.92 kg/m2 Debbie Mckeon MD Work Phone: [facility] 06-29-2024 16:32-0500 Body weight 44.45 kg Debbie Mckeon MD Work Phone: [facility] 06-29-2024 16:32-0500 Diastolic blood pressure 78 mm[Hg] Debbie Mckeon MD Work Phone: [facility] 06-29-2024 16:32-0500 Heart rate 63 /min Debbie Mckeon MD Work Phone: [facility] 06-29-2024 16:32-0500 Systolic blood pressure 112 mm[Hg] Debbie Mckeon MD Work Phone: [facility] 05-21-2024 14:11-0500 Body height 157.5 cm Caleb Easton MD Work Phone: [facility] 05-21-2024 14:11-0500 Body mass index (BMI) [Ratio] 17.92 kg/m2 Caleb Easton MD Work Phone: [facility] 05-21-2024 14:11-0500 Body weight 44.45 kg Claeb Easton MD Work Phone: [facility] 05-21-2024 14:11-0500 Diastolic blood pressure 54 mm[Hg] Caleb Easton MD Work Phone: [facility] 05-21-2024 14:11-0500 Systolic blood pressure 92 mm[Hg] Caleb Easton MD Work Phone: [facility] 04-16-2024 15:10-0400 Body height 157.5 cm Gale Serjio SHOP COOPER.MANUFACTURING INSPECTOR Work Phone: [facility] 04-16-2024 15:10-0400 Body mass index (BMI) [Ratio] 17.44 kg/m2 [place]ale [place] SHOP COOPER.MANUFACTURING INSPECTOR Work Phone: [facility] 04-16-2024 15:10-0400 Body weight 43.25 kg Gale [place] SHOP COOPER.MANUFACTURING INSPECTOR Work Phone: [facility] 04-16-2024 15:10-0400 Diastolic blood pressure 78 mm[Hg] Gale Serjio SHOP COOPER.MANUFACTURING INSPECTOR Work Phone: [facility] 04-16-2024 15:10-0400 Heart rate 83 /min Gale Serjio SHOP COOPER.MANUFACTURING INSPECTOR Work Phone: [facility] 04-16-2024 15:10-0400 Systolic blood pressure 120 mm[Hg] Gale [place] SHOP COOPER.MANUFACTURING INSPECTOR Work Phone: [facility] 04-02-2024 10:48-0400 Body height 157.48 cm [facility] 04-02-2024 10:48-0400 Body mass index (BMI) [Ratio] 18 kg/m2 [facility] 04-02-2024 10:48-0400 Body weight 44.7 kg [facility] 04-02-2024 10:48-0400 Diastolic blood pressure 72 mm[Hg] [facility] 04-02-2024 10:48-0400 Heart rate 64 /min [facility] 04-02-2024 10:48-0400 Systolic blood pressure 112 mm[Hg] [facility] 02-16-2024 10:44-0400 Body height 157.5 cm Caelb Easton MD Work Phone: [facility] 02-16-2024 10:44-0400 Body mass index (BMI) [Ratio] 18.11 kg/m2 Caleb Easton MD Work Phone: [facility] 02-16-2024 10:44-0400 Body weight 44.91 kg Caleb Eatson MD Work Phone: [facility] 12-28-2023 13:07-0400 Body height 157.5 cm Jaja Sanders SHOP COOPER-MANUFACTURING INSPECTOR Work Phone: [facility] 12-28-2023 13:07-0400 Body mass index (BMI) [Ratio] 17.19 kg/m2 Jajalaureano Briceño-Melvin SHOP COOPER-MANUFACTURING INSPECTOR Work Phone: [facility] 12-28-2023 13:07-0400 Body weight 42.64 kg Jaja Briceño-Melvin SHOP COOPER-MANUFACTURING INSPECTOR Work Phone: [facility] 12-28-2023 13:07-0400 Diastolic blood pressure 78 mm[Hg] Jaja Lisaley SHOP COOPER-MANUFACTURING INSPECTOR Work Phone: [facility] 12-28-2023 13:07-0400 Heart rate 102 /min Jaja Keyanna-Melvin SHOP COOPER-MANUFACTURING INSPECTOR Work Phone: [facility] 12-28-2023 13:07-0400 Systolic blood pressure 116 mm[Hg] Jaja Sanders SHOP COOPER-MANUFACTURING INSPECTOR Work Phone: [facility] 12-01-2023 20:12-0400 Heart rate 97 /min Aman Tapia MD [facility] 12-01-2023 20:12-0400 Respiratory rate 11 /min Aman Tapia MD Work Phone: [facility] [employer] 12-01-2023 20:12-0400 SaO2% (BldA) [Mass fraction] 99 % Aman Tapia MD Work Phone: [facility] 12-01-2023 18:00-0400 Diastolic blood pressure 64 mm[Hg] Aman Tapia MD Work Phone[facility] 12-01-2023 18:00-0400 Systolic blood pressure 104 mm[Hg] Aman Tapia MD Work Phone: [facility] 12-01-2023 16:22-0400 Body temperature 97.9 [degF] Aman Tapia MD Work Phone: [facility] 12-01-2023 16:19-0400 Body height 157.5 cm Aman Tapia MD Work Phone: [facility] 12-01-2023 16:19-0400 Body mass index (BMI) [Ratio] 17.19 kg/m2 Aman Tapia MD Work Phone: [facility] 12-01-2023 16:19-0400 Body weight 42.64 kg Aman Tapia MD Work Phone: [facility] 11-15-2023 12:53-0400 Body height 157.5 cm Jaja AriasNkechi SHOP COOPER-MANUFACTURING INSPECTOR Work Phone: [facility] 11-15-2023 12:53-0400 Body mass index (BMI) [Ratio] 18.66 kg/m2 Jajalaureano Ariaslaureano-Melvin SHOP COOPER-MANUFACTURING INSPECTOR Work Phone: [facility] 11-15-2023 12:53-0400 Body weight 46.27 kg Jaja AriaslaureanoSaturninoMelvin SHOP COOPER-MANUFACTURING INSPECTOR Work Phone: [facility] 11-15-2023 12:53-0400 Diastolic blood pressure 79 mm[Hg] Jaja Keyanna-Melvin SHOP COOPER-MANUFACTURING INSPECTOR Work Phone: [facility] 11-15-2023 12:53-0400 Heart rate 64 /min Jaja KeyannaSaturninoMelvin SHOP COOPER-MANUFACTURING INSPECTOR Work Phone: [facility] 11-15-2023 12:53-0400 Systolic blood pressure 121 mm[Hg] Jajalaureano AriaslaureanoSaturninoMelvin SHOP COOPER-MANUFACTURING INSPECTOR Work Phone: [facility] 10-10-2023 10:03-0400 Body height 159 cm Bph 2 [facility] 10-10-2023 10:03-0400 Body mass index (BMI) [Ratio] 18.31 kg/m2 Bph 2 [facility] 10-10-2023 10:03-0400 Body temperature 96.4 [degF] Bph 2 [facility] 10-10-2023 10:03-0400 Body weight 46.3 kg Bph 2 [facility] 10-10-2023 10:03-0400 Diastolic blood pressure 73 mm[Hg] Bph 2 [facility] 10-10-2023 10:03-0400 Heart rate 61 /min Bph 2 [facility] 10-10-2023 10:03-0400 Respiratory rate 16 /min Bph 2 [facility] 10-10-2023 10:03-0400 SaO2% (BldA) [Mass fraction] 100 % Bph 2 [facility] 10-10-2023 10:03-0400 Systolic blood pressure 111 mm[Hg] Bph 2 [facility] 09-20-2023 11:27-0400 Body height 154.9 cm Jaja Sanders SHOP COOPER-MANUFACTURING INSPECTOR Work Phone: [facility] 09-20-2023 11:27-0400 Body mass index (BMI) [Ratio] 19.84 kg/m2 Jaja Sanders SHOP COOPER-MANUFACTURING INSPECTOR Work Phone: [facility] 09-20-2023 11:27-0400 Body weight 47.63 kg Jaja Sanders SHOP COOPER-MANUFACTURING INSPECTOR Work Phone: [facility] 09-20-2023 11:27-0400 Diastolic blood pressure 76 mm[Hg] Jaja Sanders SHOP COOPER-MANUFACTURING INSPECTOR Work Phone: [facility] 09-20-2023 11:27-0400 Heart rate 74 /min Jaja Sanders SHOP COOPER-MANUFACTURING INSPECTOR Work Phone: [facility] 09-20-2023 11:27-0400 Systolic blood pressure 108 mm[Hg] Jaja Sanders SHOP COOPER-MANUFACTURING INSPECTOR Work Phone: [facility] 09-19-2023 15:05-0400 Body height 154.9 cm Nette Lackey MD Work Phone: [facility] 09-19-2023 15:05-0400 Body mass index (BMI) [Ratio] 19.88 kg/m2 Nette Lackey MD Work Phone: [facility] 09-19-2023 15:05-0400 Body weight 47.72 kg Nette Lackey MD Work Phone: [facility] 09-19-2023 15:05-0400 Diastolic blood pressure 62 mm[Hg] Nette Lackey MD Work Phone: [facility] 09-19-2023 15:05-0400 Systolic blood pressure 104 mm[Hg] Nette Lackey MD Work Phone: [facility] 09-13-2023 10:06-0400 Body height 154.9 cm Nette Lackey MD Work Phone: [facility] 09-13-2023 10:06-0400 Body mass index (BMI) [Ratio] 20.97 kg/m2 Nette Lackey MD Work Phone: [facility] 09-13-2023 10:06-0400 Body weight 50.35 kg eNtte Lackey MD Work Phone: [facility] 09-13-2023 10:06-0400 Diastolic blood pressure 78 mm[Hg] Nette Lackey MD Work Phone: [facility] 09-13-2023 10:06-0400 Systolic blood pressure 110 mm[Hg] Nette Lackey MD Work Phone: [facility] 09-07-2023 13:00-0400 Body height 154.9 cm Enriqueta OSMAN Work Phone: [facility] 09-07-2023 13:00-0400 Body mass index (BMI) [Ratio] 19.84 kg/m2 Enriqueta OSMAN Work Phone: [facility] 09-07-2023 13:00-0400 Body weight 47.63 kg Enriqueta Tse PA Work Phone: [facility] 09-07-2023 13:00-0400 Diastolic blood pressure 81 mm[Hg] Enriqueta Tse PA Work Phone: [facility] 09-07-2023 13:00-0400 Heart rate 73 /min Enriqueta Tse PA Work Phone: [facility] 09-07-2023 13:00-0400 Systolic blood pressure 117 mm[Hg] Enriqueta Tse PA Work Phone: [facility] 08-10-2023 12:52-0500 Body height 154.9 cm Lavonne Rubyiani SENIOR STRATEGY ANALYST Work Phone: [facility] 08-10-2023 12:52-0500 Body mass index (BMI) [Ratio] 20.03 kg/m2 Lavonne Rubyiani SENIOR STRATEGY ANALYST Work Phone: [facility] 08-10-2023 12:52-0500 Body weight 48.08 kg Lavonne Rubyiani SENIOR STRATEGY ANALYST Work Phone: [facility] 08-10-2023 12:52-0500 Diastolic blood pressure 70 mm[Hg] Lavonne Graziani SENIOR STRATEGY ANALYST Work Phone: [facility] 08-10-2023 12:52-0500 Systolic blood pressure 120 mm[Hg] Lavonne Beltraniani SENIOR STRATEGY ANALYST Work Phone: [facility] 07-07-2023 11:19-0500 Body height 154.9 cm Enriqueta Tse PA Work Phone: [facility] 07-07-2023 11:19-0500 Diastolic blood pressure 59 mm[Hg] Enriqueta Tse PA Work Phone: [facility] 07-07-2023 11:19-0500 Heart rate 65 /min Enriqueta OSMAN Work Phone: [facility] 07-07-2023 11:19-0500 Systolic blood pressure 100 mm[Hg] Enriqueta OSMAN Work Phone: [facility] 05-12-2023 17:00-0500 Diastolic blood pressure 56 mm[Hg] DO Kavin House Work Phone: [facility] 05-12-2023 17:00-0500 Heart rate 68 /min DO Kavin House Work Phone: [facility] 05-12-2023 17:00-0500 Respiratory rate 16 /min DO Kavin House Work Phone: [facility] 05-12-2023 17:00-0500 SaO2% (BldA) [Mass fraction] 98 % DO Kavin House Work Phone: [facility] 05-12-2023 17:00-0500 Systolic blood pressure 107 mm[Hg] DO Kavin House Work Phone: [facility] 05-12-2023 13:28-0500 Body height 154.94 cm DO Kavin House Work Phone: [facility] 05-12-2023 13:28-0500 Body weight 48.1 kg DO Kavin House Work Phone: [facility] 05-12-2023 13:27-0500 Body temperature 97.6 [degF] DO Kavin House Work Phone: [facility] 04-12-2023 14:17-0400 Diastolic blood pressure 80 mm[Hg] DO Kavin House Work Phone: [facility] 04-12-2023 14:17-0400 Heart rate 77 /min DO Kavin House Work Phone: [facility] 04-12-2023 14:17-0400 Respiratory rate 16 /min DO Kavin House Work Phone: [facility] 04-12-2023 14:17-0400 SaO2% (BldA) [Mass fraction] 99 % DO Kavin House Work Phone: [facility] 04-12-2023 14:17-0400 Systolic blood pressure 121 mm[Hg] DO Kavin House Work Phone: [facility] 04-12-2023 12:17-0400 Body height 154.94 cm DO Kavin House Work Phone: [facility] 04-12-2023 12:17-0400 Body temperature 97.8 [degF] DO Kavin House Work Phone: [facility] 04-12-2023 12:17-0400 Body weight 49 kg DO Kavin House Work Phone: [facility] 03-23-2023 15:14-0400 Body temperature 98.3 [degF] DO Kavin House Work Phone: [facility] 03-23-2023 15:14-0400 Diastolic blood pressure 68 mm[Hg] DO Kavin House Work Phone: [facility] 03-23-2023 15:14-0400 Heart rate 66 /min DO Kavin House Work Phone: [facility] 03-23-2023 15:14-0400 Respiratory rate 17 /min DO Kavin House Work Phone: [facility] 03-23-2023 15:14-0400 SaO2% (BldA) [Mass fraction] 100 % DO Kavin House Work Phone: [facility] 03-23-2023 15:14-0400 Systolic blood pressure 115 mm[Hg] DO Kavin House Work Phone: [facility] 03-23-2023 12:38-0400 Body height 154.94 cm DO Kavin House Work Phone: [facility] 03-23-2023 12:38-0400 Body weight 48.7 kg DO Kavin House Work Phone: [facility] 03-11-2023 15:14-0400 Diastolic blood pressure 55 mm[Hg] DO Kavin House Work Phone: [facility] 03-11-2023 15:14-0400 Heart rate 80 /min DO Kavin House Work Phone: [facility] 03-11-2023 15:14-0400 Respiratory rate 18 /min DO Kavin House Work Phone: [facility] 03-11-2023 15:14-0400 SaO2% (BldA) [Mass fraction] 100 % DO Kavin French Work Phone: [facility] 03-11-2023 15:14-0400 Systolic blood pressure 95 mm[Hg] DO Kavin House Work Phone: [facility] 03-11-2023 12:02-0400 Body height 162.56 cm DO Kavin French Work Phone: [facility] 03-11-2023 12:02-0400 Body temperature 98.8 [degF] DO Kavin French Work Phone: [facility] 03-11-2023 12:02-0400 Body weight 42.18 kg DO Kavin French Work Phone: [facility] 02-06-2023 18:33-0400 Diastolic blood pressure 69 mm[Hg] Stefanie [facility]tez [facility] [employer] 02-06-2023 18:33-0400 Heart rate 88 /min Stefanie Ortez [facility] [employer] 02-06-2023 18:33-0400 Respiratory rate 26 /min [facility]ie [facility] [employer] 02-06-2023 18:33-0400 SaO2% (BldA) [Mass fraction] 99 % Stefanie KIM [email or web address] [facility] [employer] 02-06-2023 18:33-0400 Systolic blood pressure 111 mm[Hg] Stefanie Ortez MD [facility] [email or web address] [facility] 02-06-2023 17:04-0400 Body height 154.9 cm Stefanie KIM [employer] 02-06-2023 17:04-0400 Body mass index (BMI) [Ratio] 18.33 kg/m2 Stefanie Ortez MD [facility] 02-06-2023 17:04-0400 Body temperature 98.8 [degF] Stefanie Ortez MD [facility] 02-06-2023 17:04-0400 Body weight 44 kg Stefanie Ortez MD [facility] 09-13-2022 12:30-0400 Body temperature 97 [degF] DO Kavin House Work Phone: [facility] 09-13-2022 12:00-0400 Diastolic blood pressure 76 mm[Hg] DO Kavin House Work Phone: [facility] 09-13-2022 12:00-0400 Heart rate 68 /min DO Kavin House Work Phone: [facility] 09-13-2022 12:00-0400 Respiratory rate 20 /min DO Kavin House Work Phone: [facility] 09-13-2022 12:00-0400 SaO2% (BldA) [Mass fraction] 100 % DO Kavin House Work Phone: [facility] 09-13-2022 12:00-0400 Systolic blood pressure 114 mm[Hg] DO Kavin House Work Phone: [facility] 09-13-2022 10:41-0400 Body height 154.94 cm DO Kavin House Work Phone: [facility] 09-13-2022 10:41-0400 Body weight 46.9 kg DO Kavin House Work Phone: [facility] 08-30-2022 12:23-0500 Diastolic blood pressure 72 mm[Hg] DO Kavin House Work Phone: [facility] 08-30-2022 12:23-0500 Heart rate 82 /min DO Kavin House Work Phone: [facility] 08-30-2022 12:23-0500 Respiratory rate 16 /min DO Kavin House Work Phone: [facility] 08-30-2022 12:23-0500 SaO2% (BldA) [Mass fraction] 100 % DO Kavin House Work Phone: [facility] 08-30-2022 12:23-0500 Systolic blood pressure 114 mm[Hg] DO Kavin House Work Phone: [facility] 08-30-2022 10:51-0500 Body height 154.94 cm DO Kavin House Work Phone: [facility] 08-30-2022 10:51-0500 Body weight 50.1 kg DO Kavin House Work Phone: [facility] 08-30-2022 10:50-0500 Body temperature 98.5 [degF] DO Kavin House Work Phone: [facility] 08-18-2022 13:04-0500 Diastolic blood pressure 62 mm[Hg] DO Kavin House Work Phone: [facility] 08-18-2022 13:04-0500 Heart rate 68 /min DO Kavin House Work Phone: [facility] 08-18-2022 13:04-0500 Respiratory rate 18 /min DO Kavin House Work Phone: [facility] 08-18-2022 13:04-0500 SaO2% (BldA) [Mass fraction] 100 % DO Kavin House Work Phone: [facility] 08-18-2022 13:04-0500 Systolic blood pressure 95 mm[Hg] DO Kavin House Work Phone: [facility] 08-18-2022 11:09-0500 Body height 154.94 cm DO Kavin House Work Phone: [facility] 08-18-2022 11:09-0500 Body temperature 97.8 [degF] DO Kavin House Work Phone: [facility] 08-18-2022 11:09-0500 Body weight 46.6 kg DO Kavin House Work Phone: [facility] 07-27-2022 13:11-0500 Body temperature 96.9 [degF] DO [place] Work Phone: [facility] 07-27-2022 12:58-0500 Diastolic blood pressure 67 mm[Hg] DO [place] Work Phone: [facility] 07-27-2022 12:58-0500 Heart rate 52 /min DO [place] Work Phone: [facility] 07-27-2022 12:58-0500 Respiratory rate 18 /min DO [place] Work Phone: [facility] 07-27-2022 12:58-0500 SaO2% (BldA) [Mass fraction] 100 % DO [place] Work [facility]: [facility] [place] 07-27-2022 12:58-0500 Systolic blood pressure 111 mm[Hg] DO [place] Work Phone: [facility] [place] 07-27-2022 12:04-0500 Body height 154.94 cm DO [place] Work Phone: [facility] [place] 07-27-2022 12:04-0500 Body weight 47.2 kg DO [place] Work Phone: [facility] [place] 05-18-2022 12:29-0500 Body temperature 97.8 [degF] DO Tommy Jessi Work Phone: [facility] [place] 05-18-2022 12:29-0500 Diastolic blood pressure 63 mm[Hg] DO Tommy Jessi Work Phone: [facility] [place] 05-18-2022 12:29-0500 Heart rate 63 /min DO Tommy Jessi Work Phone: [facility] [place] 05-18-2022 12:29-0500 Respiratory rate 18 /min DO Tommy Jessi Work Phone: [facility] [place] 05-18-2022 12:29-0500 SaO2% (BldA) [Mass fraction] 100 % DO Tommy Jessi Work Phone: [facility] [place] 05-18-2022 12:29-0500 Systolic blood pressure 103 mm[Hg] DO Tommy Jessi Work Phone: [facility] [place] 05-18-2022 11:02-0500 Body height 175.26 cm DO Tommy Jessi Work Phone: [facility] [place] 05-18-2022 11:02-0500 Body weight 48.08 kg DO Tommy Jessi Work Phone: [facility] [place] 04-22-2022 13:59-0400 Diastolic blood pressure 74 mm[Hg] DO Tommy Jessi Work Phone: [facility] [place] 04-22-2022 13:59-0400 Heart rate 59 /min DO Tommy Jessi Work Phone: [facility] [place] 04-22-2022 13:59-0400 Respiratory rate 16 /min DO Tommy Jessi Work Phone: [facility] [place] 04-22-2022 13:59-0400 SaO2% (BldA) [Mass fraction] 100 % DO Tommy Jessi Work Phone: [facility] [place] 04-22-2022 13:59-0400 Systolic blood pressure 116 mm[Hg] DO Tommy Jessi Work Phone: [facility] [place] 04-22-2022 10:58-0400 Body height 154.94 cm DO Tommy Jessi Work Phone: [facility] [place] 04-22-2022 10:58-0400 Body temperature 97.1 [degF] DO Tommy Jessi Work Phone: [facility] [place] 04-22-2022 10:58-0400 Body weight 49 kg DO Tommy Jessi Work Phone: [facility] [place] 04-05-2022 13:19-0400 Diastolic blood pressure 74 mm[Hg] DO Tommy Jessi Work Phone: [facility] [place] 04-05-2022 13:19-0400 Heart rate 74 /min DO Tommy Jessi Work Phone: [facility] [place] 04-05-2022 13:19-0400 Respiratory rate 16 /min DO Tommy Jessi Work Phone: [facility] [place] 04-05-2022 13:19-0400 SaO2% (BldA) [Mass fraction] 99 % DO Tommy Jessi Work Phone: [facility] [place] 04-05-2022 13:19-0400 Systolic blood pressure 111 mm[Hg] DO Tommy Jessi Work Phone: [facility] [place] 04-05-2022 10:33-0400 Body height 154.94 cm DO Tommy Jessi Work Phone: [facility] [place] 04-05-2022 10:33-0400 Body temperature 97.1 [degF] DO Tommy Jessi Work Phone: [facility] [place] 04-05-2022 10:33-0400 Body weight 51.9 kg DO Tommy Jessi Work Phone: [facility] [place] 03-30-2022 12:51-0400 Diastolic blood pressure 71 mm[Hg] DO Tommy Jessi Work Phone: [facility] [place] 03-30-2022 12:51-0400 Heart rate 81 /min DO Tommy Jessi Work Phone: [facility] [place] 03-30-2022 12:51-0400 Respiratory rate 16 /min DO Tommy Jessi Work Phone: [facility] [place] 03-30-2022 12:51-0400 SaO2% (BldA) [Mass fraction] 98 % DO Tommy Jessi Work Phone: [facility] [place] 03-30-2022 12:51-0400 Systolic blood pressure 113 mm[Hg] DO Tommy Jessi Work Phone: [facility] [place] 03-30-2022 12:07-0400 Body height 154.94 cm DO Tommy Jessi Work Phone: [facility] [place] 03-30-2022 12:07-0400 Body weight 48.08 kg DO Tommy Jessi Work Phone: [facility] [place] 03-30-2022 11:03-0400 Body temperature 97.7 [degF] DO Tommy Jessi Work Phone: [facility] [place] 03-19-2022 12:02-0400 Diastolic blood pressure 66 mm[Hg] DO Tommy Jessi Work Phone: [facility] [place] 03-19-2022 12:02-0400 Heart rate 61 /min DO Tommy Jessi Work Phone: [facility] [place] 03-19-2022 12:02-0400 Respiratory rate 18 /min DO Tommy Jessi Work Phone: [facility] [place] 03-19-2022 12:02-0400 SaO2% (BldA) [Mass fraction] 100 % DO Tommy Jessi Work Phone: [facility] [place] 03-19-2022 12:02-0400 Systolic blood pressure 125 mm[Hg] DO Tommy Jessi Work Phone: [facility] [place] 03-19-2022 11:03-0400 Body height 154.94 cm DO Tommy Jessi Work Phone: [facility] [place] 03-19-2022 11:03-0400 Body temperature 97.3 [degF] DO Tommy Jessi Work Phone: [facility] [place] 03-19-2022 11:03-0400 Body weight 53.5 kg DO Tommy Jessi Work Phone: [facility] [place] 02-25-2022 12:00-0400 Diastolic blood pressure 63 mm[Hg] DO Tommy Jessi Work Phone: [facility] [place] 02-25-2022 12:00-0400 Heart rate 71 /min DO Tommy Jessi Work Phone: [facility] [place] 02-25-2022 12:00-0400 Respiratory rate 14 /min DO Tommy Jessi Work Phone: [facility] [place] 02-25-2022 12:00-0400 SaO2% (BldA) [Mass fraction] 99 % DO Tommy Jessi Work Phone: [facility] [place] 02-25-2022 12:00-0400 Systolic blood pressure 112 mm[Hg] DO Tommy Jessi Work Phone: [facility] [place] 02-25-2022 11:07-0400 Body height 162.56 cm DO Tommy Jessi Work Phone: [facility] [place] 02-25-2022 11:07-0400 Body temperature 98.4 [degF] DO Tommy Jessi Work Phone: [facility] [place] 02-25-2022 11:07-0400 Body weight 50.2 kg DO Tommy Jessi Work Phone: [facility] [place] 09-28-2021 13:35-0400 Diastolic blood pressure 73 mm[Hg] DO Kavin House Work Phone: [facility] [place] 09-28-2021 13:35-0400 Heart rate 71 /min DO Kavin House Work Phone: [facility] [place] 09-28-2021 13:35-0400 Respiratory rate 18 /min DO Kavin House Work Phone: [facility] [place] 09-28-2021 13:35-0400 SaO2% (BldA) [Mass fraction] 100 % DO Kavin House Work Phone: [facility] [place] 09-28-2021 13:35-0400 Systolic blood pressure 113 mm[Hg] DO Kavin House Work Phone: [facility] [place] 09-28-2021 11:40-0400 Body height 154.94 cm DO Kavin House Work Phone: [facility] [place] 09-28-2021 11:40-0400 Body mass index (BMI) [Ratio] 19.5 kg/m2 DO Kavin House Work Phone: [facility] [place] 09-28-2021 11:40-0400 Body temperature 98 [degF] DO Kavin House Work Phone: [facility] [place] 09-28-2021 11:40-0400 Body weight 47 kg DO Kavin House Work Phone: [facility] [place] 09-09-2021 13:05-0400 Diastolic blood pressure 65 mm[Hg] DO Kavin House Work Phone: [facility] [place] 09-09-2021 13:05-0400 Heart rate 81 /min DO Kavin House Work Phone: [facility] [place] 09-09-2021 13:05-0400 Respiratory rate 20 /min DO Kavin House Work Phone: [facility] [place] 09-09-2021 13:05-0400 SaO2% (BldA) [Mass fraction] 100 % DO Kavin House Work Phone: [facility] [place] 09-09-2021 13:05-0400 Systolic blood pressure 107 mm[Hg] DO Kavin House Work Phone: [facility] [place] 09-09-2021 11:12-0400 Body height 154.94 cm DO Kavin House Work Phone: [facility] [place] 09-09-2021 11:12-0400 Body mass index (BMI) [Ratio] 19.5 kg/m2 DO Kavin House Work Phone: [facility] [place] 09-09-2021 11:12-0400 Body weight 47 kg DO Kavin House Work Phone: [facility] [place] 09-09-2021 11:05-0400 Body temperature 97.8 [degF] DO Kavin House Work Phone: [facility] [place] 08-12-2021 14:30-0500 Diastolic blood pressure 60 mm[Hg] DO Kavin House Work Phone: [facility] [place] 08-12-2021 14:30-0500 Heart rate 68 /min DO Kavin House Work Phone: [facility] [place] 08-12-2021 14:30-0500 Respiratory rate 21 /min DO Kavin House Work Phone: [facility] [place] 08-12-2021 14:30-0500 SaO2% (BldA) [Mass fraction] 99 % DO Kavin House Work Phone: [facility] [place] 08-12-2021 14:30-0500 Systolic blood pressure 102 mm[Hg] DO Kavin House Work Phone: [facility] [place] 08-12-2021 10:45-0500 Body height 154.94 cm DO Kavin House Work Phone: [facility] [place] 08-12-2021 10:45-0500 Body mass index (BMI) [Ratio] 43.7 kg/m2 DO Kavin House Work Phone: [facility] [place] 08-12-2021 10:45-0500 Body weight 105.1 kg DO Kavin House Work Phone: [facility] [place] 08-12-2021 10:35-0500 Body temperature 97.5 [degF] DO Kavin House Work Phone: [facility] [place] 08-07-2021 12:50-0500 Diastolic blood pressure 74 mm[Hg] DO Kavin House Work Phone: [facility] [place] 08-07-2021 12:50-0500 Heart rate 91 /min DO Kavin House Work Phone: [facility] [place] 08-07-2021 12:50-0500 Respiratory rate 16 /min DO Kavin House Work Phone: [facility] [place] 08-07-2021 12:50-0500 SaO2% (BldA) [Mass fraction] 100 % DO Kavin House Work Phone: [facility] [place] 08-07-2021 12:50-0500 Systolic blood pressure 107 mm[Hg] DO Kavin House Work Phone: [facility] [place] 07-10-2021 12:55-0500 Diastolic blood pressure 72 mm[Hg] DO Kavin House Work Phone: [facility] [place] 07-10-2021 12:55-0500 Heart rate 58 /min DO Kavin House Work Phone: [facility] [place] 07-10-2021 12:55-0500 Respiratory rate 18 /min DO Kavin House Work Phone: [facility] [place] 07-10-2021 12:55-0500 SaO2% (BldA) [Mass fraction] 100 % DO Kavin House Work Phone: [facility] [place] 07-10-2021 12:55-0500 Systolic blood pressure 110 mm[Hg] DO Kavin House Work Phone: [facility] [place] 07-10-2021 10:57-0500 Body height 154.94 cm DO Kavin House Work Phone: [facility] [place] 07-10-2021 10:57-0500 Body mass index (BMI) [Ratio] 20.5 kg/m2 DO Kavin House Work Phone: [facility] [place] 07-10-2021 10:57-0500 Body temperature 97.5 [degF] DO Kavin House Work Phone: [facility] [place] 07-10-2021 10:57-0500 Body weight 49.4 kg DO Kavin House Work Phone: [phone] [place] [address] Encounters Encounter Date Encounter Type Care Provider Facility Start: 03-13-2025 Evaluation and manag ement of inpatient [facility] Start: 03-09-2025 End: 03-13-2025 Evaluation and management of inpatient KAVIN Boland [facility] Start: 03-06-2025 End: 03-06-2025 Office outpatient visit 25 minutes Shantanu Robles MD Work Phone: 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 Start: 02-26-2025 End: 02-26-2025 Telemedicine consultation with patient Tammy Palacios PSYD Work Phone: Adult Psychology Start: 02-26-2025 End: 02-26-2025 Patient encounter procedure Shantanu Robles MD -Pacemaker Check Start: 02-26-2025 End: 02-26-2025 ambulatory Kavin French DO Work Phone: [facility] Work Phone: Comment on above: PTSD (post-traumatic stress disorder) (Primary Dx); Gastroparesis Start: 02-26-2025 Non-patient / Non-visit [facility] Start: 02-19-2025 End: 02-19-[address] Work Phone: Gastroenterology Comment on above: Gastroparesis (Prima ry Dx) Start: 02-19-2025 End: 02-19-2025 Admission to same day surgery center Josey White DO Work Phone: General Surgery Comment on above: Gastroparesis (Prima ry Dx); Gastroesophageal reflux disease, unspecified whether esophagitis present; Chronic idiopathic constipation; Dyssynergic defecation; Abnormal weight loss Start: 02-19-2025 End: 02-19-2025 Telemedicine consultation with patient Josey White DO Work Phone: General Surgery Start: 02-19-2025 End: 02-19-2025 ambulatory JOSEY WHITE Facility:[facility] Start: 02-16-2025 End: 02-16-2025 Emergency department patient visit [facility] Start: 02-15-2025 End: 02-15-2025 Bamboo flowsheet Lavonne Thomas SENIOR STRATEGY ANALYST Work Phone: [facility] Start: 02-15-2025 End: 02-15-2025 Bamboo flowsheet Lavonne Thomas SENIOR STRATEGY ANALYST Work Phone: [facility] Start: 02-15-2025 End: 02-15-2025 Office outpatient visit 25 minutes Lavonne Thomas SENIOR STRATEGY ANALYST Work Phone: [facility] 210 Comment on above: Intractable chronic migraine without aura and without status migrainosus (Primary Dx); Chronic migraine without aura without status migrainosus, not intractable ; Anxiety Start: 02-12-2025 End: 02-14-2025 Telephone encounter Gale Bassett SHOP COOPER.MANUFACTURING INSPECTOR Work Phone: Endocrinology Comment on above: Infection Concern Start: 02-06-2025 [facility] Start: 02-06-2025 End: 02-06-2025 Office outpatient visit 25 minutes Sierra Anna SENIOR STRATEGY ANALYST Work Phone: [facility] Gabriella Neurology Comment on above: Psychogenic nonepile ptic seizure (Primary Dx); Chronic migraine without aura without status migrainosus, not intractable ; Chronic insomnia; Tremor Start: 02-06-2025 End: 02-06-2025 Bamboo flowsheet Sierra Anna SENIOR STRATEGY ANALYST Work Phone: [facility] BM NEUROLOGY Start: 02-06-2025 End: 02-06-2025 Bamboo flowsheet Sierra Anna SENIOR STRATEGY ANALYST Work Phone: [facility] Start: 02-05-2025 End: 02-07-2025 Telephone encounter Gale Bassett SHOP COOPER.MANUFACTURING INSPECTOR Work Phone: Endocrinology Comment on above: Medication Problem ( Blood-Glucose Sensor (FREESTYLE GOYO 3 PLUS SENSOR) efrain) Start: 01-23-2025 End: 01-23-2025 Office consultation new/estab patient 80 min Shantanu Robles MD Work Phone: [facility] Comment on above: Supraventricular tac hycardia, unspecified; Shortness of breath; Palpitations; Dizziness and giddiness; Implantable loop recorder present; Family history of hypertrophic cardiomyopathy; Never smoked tobacco; BMI < 18.5 Start: 01-23-2025 End: 01-23-2025 ambulatory [facility] Start: 01-23-2025 ambulatory [facility] Start: 01-10-2025 End: 01-10-2025 Telephone encounter [facility] Start: 01-07-2025 End: 01-07-2025 Fawad Easton MD Work Phone: [facility] Comment on above: Intractable complex partial epilepsy (HCC); Focal epilepsy with impairment of consciousness, intractable (HCC); Epilepsy, 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HCC) Ambulatory Social Wo rk Start: 01-04-2025 End: 01-04-2025 Patient encounter procedure Gale Bassett SHOP COOPER.MANUFACTURING INSPECTOR Work Phone: Endocrinology Comment on above: Hypoglycemia (Primar y Dx); Vision changes; Gastroparesis; Abnormal weight loss; Mild protein-calorie malnutrition (HCC); Emesis, persistent Start: 01-04-2025 End: 01-04-2025 ambulatory GALE BASSETT Facility:[facility] Start: 01-03-2025 End: 01-03-2025 Office outpatient visit 25 minutes Lavonne Thomas SENIOR STRATEGY ANALYST Work Phone: [facility] 210 Comment on above: Psychogenic nonepile ptic seizure (Primary Dx); Tachycardia; Syncope, unspecified syncope type; Migraine without aura and without status migrainosus, not intractable ; Seizure disorder (HCC) Start: 01-03-2025 End: 01-03-2025 Bamboo flowsheet Lavonne Thomas SENIOR STRATEGY ANALYST Work Phone: [facility] Start: 01-03-2025 End: 01-03-2025 Bamboo flowsheet Lavonne Thomas SENIOR STRATEGY ANALYST Work Phone: [facility] Start: 01-02-2025 ambulatory DO KAVIN FRENCH [facility] lity:[facility] Start: 12-15-2024 End: 12-16-2024 Emergency department patient visit KAVIN Boland [facility] Start: 12-06-2024 End: 12-06-2024 Bamboo flowsheet Caleb Easton MD Work Phone: [facility] Start: 12-06-2024 End: 12-06-2024 Bamboo flowsheet Caleb Easton MD Work Phone: [facility] Start: 12-06-2024 End: 12-06-2024 Office outpatient visit 25 minutes Caleb Easton MD Work Phone: [facility] Comment on above: Psychogenic nonepile ptic seizure (Primary Dx); Migraine without aura and without status migrainosus, not intractable ; Chronic insomnia Start: 11-28-2024 ambulatory [facility] Start: 11-28-2024 End: 11-28-2024 ambulatory [facility] Start: 11-20-2024 End: 11-20-2024 Telephone encounter Jaquelin [facility] Start: 11-15-2024 [facility] Start: 11-09-2024 ambulatory [facility] Start: 11-01-2024 End: 11-01-2024 Patient encounter procedure Kavin House DO Work Phone: [facility]-Nuc Med [facility] [place] Work Phone: Start: 11-01-2024 End: 11-01-2024 ambulatory Kavin House DO Work Phone: [facility] Work Phone: Start: 10-16-2024 End: 10-16-2024 ambulatory JOJO [facility] Start: 10-15-2024 Non-patient / Non-visit Mango cali House DO Work Phone: [facility] G[facility] Work Phone: Start: 10-15-2024 End: 10-15-2024 Admission to same day surgery center Kavin House DO Work Phone: [facility]-Digestive Health Work Phone: Start: 10-15-2024 End: 10-15-2024 ambulatory Kavin House DO Work Phone: [facility] Work Phone: Start: 10-12-2024 End: 10-12-2024 Telephone encounter Lavonne Thomas SHOP COOPER-MANUFACTURING INSPECTOR [facility] Comment on above: Sleep Lab ([facility]) Start: 10-11-2024 End: 10-11-2024 Telephone encounter Orders Support User Transcribe [facility] Start: 10-10-2024 End: 10-10-2024 Refill Lavonne Thomas SENIOR STRATEGY ANALYST Work Phone: [facility] Comment on above: 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 Start: 10-08-2024 End: 10-08-2024 ambulatory NAHUN GONGORA Facility:[facility] Start: 10-08-2024 End: 10-08-2024 Patient encounter procedure Nahun Gongora OD Work Phone: Ophthalmology Comment on above: Type 2 diabetes corina itus without retinopathy (HCC) (Primary Dx); Vision changes; Myopia, bilateral Start: 10-02-2024 ambulatory [facility] Start: 09-27-2024 End: 09-27-2024 ambulatory [facility] Work Phone: Start: 09-27-2024 End: 09-27-2024 Patient encounter procedure [facility] Work Phone: Start: 09-06-2024 End: 09-06-2024 Bamboo flowsheet Lavonne Thomas SENIOR STRATEGY ANALYST Work Phone: [facility] Start: 09-06-2024 End: 09-06-2024 Bamboo flowsheet Lavonne Thomas SENIOR STRATEGY ANALYST Work Phone: [facility] Start: 09-04-2024 End: 09-04-2024 Patient encounter procedure Ainsley Graham MD Work Phone: [facility] Comment on above: Acne vulgaris (Prima ry Dx) Start: 09-03-2024 End: 09-03-2024 Office outpatient visit 10 minutes Debbie Mckeon MD Work Phone: [facility] Comment on above: Feeling of incomplet e bladder emptying (Primary Dx); Epilepsy, 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[facility]-HCC) Start: 09-03-2024 End: 09-03-2024 ambulatory DEBBIE MCKEON [facility] Start: 08-30-2024 ambulatory [facility] Start: 08-16-2024 End: 08-16-2024 Emergency department patient visit KAVIN FRENCH [facility] Start: 08-16-2024 End: 08-16-2024 [facility] Start: 08-16-2024 End: 08-16-2024 Office outpatient visit 15 minutes Karen Neely SHOP COOPER-CNM Work Phone: [facility] Comment on above: Abnormal uterine ble eding (AUB) (Primary Dx) Start: 08-15-2024 Non-patient / Non-visit [facility] Work Phone: Start: 08-14-2024 End: 08-14-2024 Telephone encounter Caleb Easton MD Work Phone: [facility] Start: 08-09-2024 ambulatory DO KAVIN FRENCH Faci lity:[facility] Start: 08-08-2024 End: 08-08-2024 [facility]phone [facility] Comment on above: Dysuria (Primary Dx) Start: 08-08-2024 End: 08-08-2024 ambulatory [facility] Start: 08-01-2024 End: 08-01-2024 Telephone encounter Gale Bassett APRN.MANUFACTURING INSPECTOR Work Phone: Endocrinology Start: 07-30-2024 ambulatory [facility] Start: 07-26-2024 End: 07-26-2024 Bamboo flowsrenetta Graham MD Work Phone: [facility] Start: 07-26-2024 End: 07-26-2024 Isabela flowsrenetta Graham MD Work Phone: [facility] Start: 07-26-2024 End: 07-26-2024 Office outpatient visit 25 minutes Ainsley Graham MD Work Phone: [facility] Comment on above: Acne vulgaris (Prima ry Dx) Start: 07-24-2024 End: 07-24-2024 Telephone encounter Caleb Easton MD Work Phone: [facility] 210 Comment on above: Med Refill Start: 07-20-2024 End: 07-20-2024 ambulatory ASHIPPUN Chivo [facility] Start: 07-18-2024 End: 07-18-2024 ambulatory [facility] Facility:[facility] Start: 07-18-2024 End: 07-18-2024 Nutrition therapy [...] 07-17-2024 End: 07-17-2024 Orders Only Enriqueta Vaca [facility] Comment on above: Hematuria, unspecifi ed type (Primary Dx) Start: 07-08-2024 End: 07-08-2024 Telephone encounter Caleb Easton MD Work Phone: [facility] 210 Comment on above: 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 Start: 06-29-2024 End: 06-29-2024 Office outpatient visit 15 minutes Debbie Mckeon MD Work Phone: [facility] Comment on above: Right kidney stone ( Primary Dx); Epilepsy, 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[facility]-HCC) Start: 06-29-2024 End: 06-29-2024 ambulatory DEBBIE MCKEON [facility] Start: 06-22-2024 End: 06-22-2024 ambulatory [facility] Start: 06-21-2024 End: 06-22-2024 Refill Gale Bassett SHOP COOPER.MANUFACTURING INSPECTOR Work Phone: Endocrinology Comment on above: Refill Request Start: 06-18-2024 End: 06-18-2024 [facility] Gale Bassett SHOP COOPER.MANUFACTURING INSPECTOR Work Phone: Endocrinology Comment on above: Hypoglycemia (Primar y Dx); Mild protein-calorie malnutrition (HCC); Social anxiety disorder; Sensory food aversion; Vision changes; Low TSH level; Gender dysphoria; Night sweats; Hematuria, unspecified type; History of kidney stones Start: 06-13-2024 [facility] Start: 06-12-2024 End: 06-12-2024 Refill Caleb Easton MD Work Phone: [facility] 210 Comment on above: Intractable complex partial epilepsy (CMS/HCC); Focal epilepsy with impairment of consciousness, intractable (CMS/HCC); Epilepsy, 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CMS/HCC) Start: 06-12-2024 End: 06-12-2024 Telephone encounter Caleb Easton MD Work Phone: [facility] 210 Comment on above: Intractable chronic migraine without aura and without status migrainosus (CMS/HCC) (Primary Dx) Start: 06-08-2024 [facility] Start: 06-05-2024 End: 06-05-2024 [facility] Start: 05-28-2024 End: 05-28-2024 Telephone encounter Caleb Easton MD Work Phone: [facility] [facility] Start: 05-28-2024 [facility] Start: 05-21-2024 End: 05-21-2024 Isabela Easton MD Work Phone: [facility] Start: 05-21-2024 End: 05-21-2024 Isabela lopezheet Caleb Easton MD Work Phone: [facility] Start: 05-21-2024 End: 05-21-2024 Office outpatient visit 25 minutes Caleb Easton MD Work Phone: [facility] Comment on above: 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 (Primary Dx); Intractable chronic migraine without aura and without status migrainosus (CMS/HCC); Intractable complex partial epilepsy (CMS/HCC) Start: 05-18-2024 End: 05-18-2024 Telephone encounter Gale Bassett SHOP COOPER.MANUFACTURING INSPECTOR Work Phone: Endocrinology Comment on above: Question; dexcom 7 Start: 05-11-2024 End: 05-11-2024 ambulatory GALE BASSETT Facility:[facility] Start: 05-09-2024 ambulatory [facility] Start: 05-03-2024 End: 05-03-2024 Bambodominic flowsrenetta Graham MD Work Phone: [facility] Start: 05-03-2024 End: 05-03-2024 Bambodominic flowsrenetta Graham MD Work Phone: [facility] Start: 05-03-2024 End: 05-03-2024 Office outpatient visit 25 minutes Ainsley Graham MD Work Phone: [facility] Comment on above: Acne vulgaris (Prima ry Dx); Telogen effluvium Start: 05-01-2024 ambulatory [facility] Start: 04-30-2024 End: 04-30-2024 Social Work Basim AGUIRREW Work Phone: Endocrinology Start: 04-16-2024 End: 04-16-2024 ambulatory GALE BASSETT Facility:[facility] Start: 04-16-2024 End: 04-16-2024 Patient encounter procedure Gale Bassett SHOP COOPER.MANUFACTURING INSPECTOR Work Phone: Endocrinology Comment on above: Other specified diab etes mellitus with other specified complication, without long-term current use of insulin (HCC) (Primary Dx); Sensory food aversion; Abnormal weight loss; Anxiety disorder, unspecified type; Mild protein-calorie malnutrition (HCC); Low TSH level; Low weight; Psychogenic nonepileptic seizure Start: 04-02-2024 End: 04-02-2024 ambulatory [facility] Work Phone: Start: 04-02-2024 End: 04-02-2024 Patient encounter procedure [facility] Work Phone: Start: 03-27-2024 ambulatory REA [facility] Start: 03-19-2024 End: 03-20-2024 Refill Caleb Easton MD Work Phone: [facility] 210 Comment on above: Intractable complex partial epilepsy (CMS/HCC); Focal epilepsy with impairment of consciousness, intractable (CMS/HCC); Epilepsy, 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CMS/HCC) Start: 03-12-2024 ambulatory [facility] Start: 02-16-2024 End: 02-16-2024 Bamboo flowsheet Caleb Easton MD Work Phone: [facility] Start: 02-16-2024 End: 02-16-2024 [facility] flowsheet Caleb Easton MD Work Phone: [facility] Start: 02-16-2024 Patient encounter status Kali Easton MD Work Phone: [facility] Start: 02-16-2024 End: 02-16-2024 Office outpatient visit 25 minutes Caleb Easton MD Work Phone: [facility] Comment on above: 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; Insomnia due to medical condition; Seizure disorder (CMS/HCC); Primary insomnia Start: 01-29-2024 Non-patient / Non-visit [facility] ER Work Phone: Start: 12-28-2023 End: 12-28-2023 Office outpatient visit 10 minutes Jaja LINARES Work Phone: [facility] Comment on above: Muscle spasm (Primar y Dx); Chronic bilateral low back pain without sciatica; Chronic bilateral low back pain with bilateral sciatica; Low back pain, unspecified back pain laterality, unspecified chronicity, unspecified whether sciatica present Start: 12-28-2023 End: 12-28-2023 ambulatory [facility] Start: 12-17-2023 End: 12-17-2023 Telephone encounter Nurse Nurse Triage MERCHANDISE DIRECTOR Work Phone: [facility] - [address] Start: 12-09-2023 End: 12-09-2023 ambulatory KAVIN [facility] Start: 12-09-2023 End: 12-09-2023 Subsequent hospital visit by physician Kavin French Sr., DO Work Phone: [facility] Start: 12-06-2023 End: 12-06-2023 ambulatory [facility] Start: 12-02-2023 End: 12-02-2023 ambulatory [facility] Start: 12-01-2023 End: 12-01-2023 Emergency department patient visit Aman Tapia MD Work Phone: [facility] Comment on above: Seizure-like activit y (HCC) (Primary Dx) Start: 12-01-2023 End: 12-01-2023 ambulatory [facility] Start: 11-25-2023 [facility] Start: 11-15-2023 End: 11-15-2023 ambulatory [facility] Start: 11-15-2023 End: 11-15-2023 Office outpatient visit 15 minutes [facility] SHOP COOPER-MANUFACTURING INSPECTOR Work Phone: [facility] Comment on above: Muscle spasm (Primar y Dx); Chronic bilateral low back pain with bilateral sciatica; Chronic bilateral low back pain, unspecified whether sciatica present; Low back pain, unspecified back pain laterality, unspecified chronicity, unspecified whether sciatica present Start: 10-17-2023 End: 10-17-2023 Telephone encounter Debbie Mckeon MD Work Phone: [facility] Start: 10-10-2023 End: 10-10-2023 Patient encounter procedure [facility] Pre-Admission Testing 2 [facility] -Pre Admission Testing Comment on above: Pre-op testing (Prim walker Dx); Gross hematuria Start: 10-10-2023 End: 08-16-2024 Patient encounter status [facility] 2 [facility] Work Phone: Start: 10-10-2023 Encounter for other preprocedural examination [facility] Start: 10-10-2023 End: 10-12-2023 ambulatory [facility] Start: 09-27-2023 Orders Only Nette Lackey MD Work Phone: [facility] Start: 09-20-2023 End: 09-20-2023 ambulatory [facility] Start: 09-20-2023 End: 09-20-2023 Office outpatient new 30 minutes [facility] SHOP COOPER-MANUFACTURING INSPECTOR Work Phone: [facility] Comment on above: Muscle spasm (Primar y Dx); Chronic bilateral low back pain with bilateral sciatica; Chronic bilateral low back pain, unspecified whether sciatica present Start: 09-19-2023 End: 09-19-2023 Patient encounter procedure Nette Lackey MD Work Phone: [facility] Comment on above: Encounter for initia l prescription of implantable subdermal contraceptive (Primary Dx) Start: 09-19-2023 End: 09-19-2023 [facility] Start: 09-15-2023 Telephone encounter Enriqueta OSMAN Work Phone: [facility] Start: 09-13-2023 End: 09-13-2023 Office outpatient new 45 minutes Nette Lackey MD Work Phone: [facility] Comment on above: Irregular menstrual cycle (Primary Dx); Cyst of left ovary Start: 09-13-2023 End: 09-13-2023 ambulatory NETTE LACKEY [facility] Start: 09-08-2023 ambulatory KAVIN [facility] Start: 09-07-2023 End: 09-07-2023 Orders Only Gloria Pelletier [facility] Comment on above: Neck pain (Primary D x) Low back pain, unspe cified back pain laterality, unspecified chronicity, unspecified whether sciatica present (Primary Dx) Start: 09-07-2023 End: 09-07-2023 Office outpatient visit 25 minutes Enriqueta OSMAN Work Phone: [facility] Comment on above: Right kidney stone ( Primary Dx); Chronic bilateral low back pain with bilateral sciatica; Cyst of left ovary; Gross hematuria Start: 08-16-2023 Telephone encounter Enriqueta OSMAN Work Phone: [facility] Start: 08-10-2023 End: 08-10-2023 Office outpatient visit 25 minutes Lavonne Thomas NP Work Phone: [facility] Comment on above: Intractable complex partial epilepsy (CMS/HCC) (Primary Dx); Cervical radiculopathy; Insomnia due to medical condition; Migraine without aura and without status migrainosus, not intractable (CMS/HCC); Memory loss; Neck pain; Cervical paraspinal muscle spasm Start: 08-02-2023 Telephone encounter Enriqueta OSMAN Work Phone: [facility] Start: 07-07-2023 End: 07-07-2023 Office outpatient visit 25 minutes Enriqueta OSMAN Work Phone: [facility] Comment on above: Right kidney stone ( Primary Dx) Start: 05-12-2023 End: 05-12-2023 Emergency department patient visit DO Kavin Bellaire Work Phone: [facility] Work Phone: Start: 04-12-2023 End: 04-12-2023 Emergency department patient visit DO Kavin French Work Phone: [facility] Work Phone: Start: 03-23-2023 End: 03-23-2023 Emergency department patient visit DO Kavin French Work Phone: [facility] Work Phone: Start: 03-11-2023 End: 03-11-2023 Emergency department patient visit DO Kavin French Work Phone: [facility] Work Phone: Start: 02-06-2023 End: 02-06-2023 Emergency department patient visit KAVIN FRENCH [facility] Start: 02-06-2023 End: 02-06-2023 Emergency department patient visit Stefanie Ortez MD [facility] ED Comment on above: Seizure (HCC) Start: 09-23-2022 End: 09-24-2022 ambulatory KAVIN FRENCH Facility:[facility] Start: 09-13-2022 End: 09-13-2022 Emergency department patient visit DO Kavin French Work Phone: [facility] Work Phone: Start: 08-30-2022 End: 08-30-2022 Emergency department patient visit DO Kavin French Work Phone: [facility] Work Phone: Start: 08-18-2022 End: 08-18-2022 Emergency department patient visit DO Kavin French Work Phone: [facility] Work Phone: Start: 07-27-2022 End: 07-27-2022 Emergency department patient visit DO Los Dali Work Phone: [facility] Work Phone: Start: 06-12-2022 End: 06-13-[address] KAVIN FRENCH Facility:[facility] Start: 05-24-2022 End: 05-24-[address] KAVIN FRENCH Facility:[facility] Start: 05-18-2022 End: 05-18-2022 Emergency department patient visit DO Tommy Jessi Work Phone: [facility] Start: 05-15-2022 End: 05-15-[address] KAVIN FRENCH Facility:[facility] Start: 04-22-2022 End: 04-22-2022 Emergency department patient visit DO Tommy Jessi Work Phone: [facility] Start: 04-05-2022 End: 04-05-2022 Emergency department patient visit DO Tommy Jessi Work Phone: [facility] Start: 03-30-2022 End: 03-30-2022 Emergency department patient visit DO Tommy Jessi Work Phone: [facility] Start: 03-19-2022 End: 03-19-2022 Emergency department patient visit DO Tommy Jessi Work Phone: [facility] Start: 02-25-2022 End: 02-25-2022 Emergency department patient visit DO Tommy Jessi Work Phone: [facility] Start: 01-03-2022 End: 01-03-[address] KAVIN FRENCH Facility:[facility] Start: 11-29-2021 End: 11-29-[address] KAVIN FRENCH Facility:[facility] Start: 10-16-2021 End: 10-16-[address] KAVIN FRENCH Facility:[facility] Start: 09-28-2021 End: 09-28-2021 Emergency department patient visit DO Kavin French Work Phone: [facility] Start: 09-09-2021 End: 09-09-2021 Emergency department patient visit DO Kavin French Work Phone: [facility] Start: 08-20-2021 ambulatory [facility] Provider Leila Peña rinology Comment on above: Invitation for resea [facility] study with Dr. Wheat Start: 08-20-2021 E-mail encounter fro m caregiver [facility] Provider [facility] Start: 08-18-2021 ambulatory DION WHITE Facility:[facility] Start: 08-12-2021 End: 08-12-2021 Emergency department patient visit DO Kavin Bellaire Work Phone: [facility] Start: 08-07-2021 End: 08-07-2021 Emergency department patient visit DO Kavin Bellaire Work Phone: [facility] Start: 07-10-2021 End: 07-10-2021 Emergency department patient visit DO Kavin Bellaire Work Phone: [facility] Start: 03-23-2021 End: 03-23-2021 Emergency department patient visit KAVIN [facility] Start: 07-20-2017 End: 07-20-2017 Emergency department patient visit ALEXA SAHA Facility:[facility] Procedures Date Procedure Procedure Detail Performing Clinician Start: 01-23-2025 Ecg routine ecg w/least 12 lds w/i&r Shantanu Robles MD Work Phone: Start: 01-04-2025 Hemoglobin A1c/Hemoglobin.total in Blood Gale Bassett SHOP COOPER.MANUFACTURING INSPECTOR Work Phone: Start: 11-01-2024 Radionuclide gastric emptying study [facility] Work Phone: Start: 10-15-2024 Esophagogastroduodenoscopy [facility] Work Phone: Start: 09-03-2024 Urnls dip stick/tablet rgnt auto w/o microscopy Debbie Mckeon MD Work Phone: Start: 09-03-2024 MEASURE POST VOID RESIDUAL Debbie Mckeon MD Work Phone: Start: 06-29-2024 Urnls dip stick/tablet rgnt auto w/o microscopy Debbie Mckeon MD Work Phone: Start: 06-29-2024 Follow-up visit Follow-up DEBBIE MCKEON Start: 04-16-2024 Hemoglobin A1c/Hemoglobin.total in Blood Gale Bassett SHOP COOPER.MANUFACTURING INSPECTOR Work Phone: Start: 12-09-2023 Basic metabolic panel calcium total David Remy MD Start: 12-01-2023 Ct cervical spine w/o contrast material Aman Tapia MD Work Phone: Start: 12-01-2023 Ct head/brain w/o contrast material Eugene Tapia MD Work Phone: Start: 12-01-2023 Basic metabolic panel calcium total Eugene Tapia MD Work Phone: Start: 11-25-2023 Adult depression screening assessment Nurse Nurse Triage MERCHANDISE DIRECTOR Work Phone: Start: 10-10-2023 Culture bacterial quanttative [...] of abdomen and pelvis without contrast DO [facility] Work Phone: Start: 02-06-2023 Ct head/brain w/o contrast material Stefanie Ortez MD Start: 02-06-2023 End: 02-06-2023 Comprehensive metabolic panel Stefanie Soto Start: 08-30-2022 Urine culture DO [facility] Work Phone: Start: 09-28-2021 Plain chest X-ray DO [facility] Work Phone: Start: 09-09-2021 Urine culture DO [facility] Work Phone: Start: 08-12-2021 Urine culture DO [facility] Work Phone: Start: 08-07-2021 Urine culture DO [facility] Work Phone: Start: 07-10-2021 Urine culture DO [facility] Work Phone: Start: 07-10-2021 CT of abdomen and pelvis without contrast DO [facility] Work Phone: Start: 12-05-2017 Electroencephalogram Urine culture DO Tommy Jessi Work Phone: Urine culture DO Tommy Jessi Work Phone: Plan of Treatment Date Care Activity Detail Author Start: 2051 Zoster Vaccines (1 of 2) Zoster Vaccines (1 of 2) [facility] Start: 08-23-2033 DTaP/Tdap/Td Vaccines (2 - Td or Tdap) DTaP/Tdap/Td Vaccines (2 - Td or Tdap) [facility] Start: 08-23-2033 Urine microalbumin profile DTaP,Tdap,Td Vaccine (2 - Td or Tdap) [facility] Start: 11-15-2025 Adult BMI Screening Adult BMI Screening [facility] Start: 10-16-2025 End: 10-16-2025 Patient encounter procedure 10/16/2025 3:40 PM EDT Office Visit [facility] [address] [place] [id number] Shantanu Robles MD [address] [place] [address] [facility] Start: 10-08-2025 Glaucoma screening Dilated Retinal Exam [facility] Start: 09-03-2025 Adult BMI Screening Adult BMI Screening [facility] Start: 09-03-2025 Tobacco Screening Tobacco Screening [facility] Start: 08-16-2025 Adult BMI Screening Adult BMI Screening [facility] Start: 08-16-2025 Tobacco Screening Tobacco Screening [facility] Start: 07-08-2025 End: 07-08-2025 Patient encounter procedure 07/08/2025 3:00 PM EST Office Visit Endocrinology [address] [place] [address] Gale Bassett, ROSA.MANUFACTURING INSPECTOR [address] [place] [address] 6 mo follow up Endocrinology Comment on above: 6 mo follow up Start: 07-07-2025 Hemoglobin A1c measurement HbA1C [facility] Start: 06-29-2025 Adult BMI Screening Adult BMI Screening [facility] Start: 06-29-2025 Tobacco Screening Tobacco Screening [facility] Start: 05-11-2025 Hepatitis B screening Urine Albumin:Creatinine Ratio [facility] Start: 05-11-2025 Urine screening for protein Diabetes: Urine Protein Screening [facility] Start: 05-09-2025 End: 05-09-2025 Patient encounter procedure [facility] Start: 04-06-2025 Hemoglobin A1c measurement Diabetes: Hemoglobin A1C [facility] Start: 03-28-2025 End: 03-28-2025 Follow-up encounter 03/28/2025 2:00 PM EDT [facility] [address] [address] Edenilson Schmitz, JHONATHAN [address] [address] follow up gastroparesis/weight check Gastroenterology Comment on above: follow up gastroparesis/weight check Start: 03-26-2025 End: 03-26-2025 Patient encounter procedure 03/26/2025 1:45 PM EDT OT/PT/Speech Visit [facility] [address] [place] [address] Hosp, Speech [place]bs [place] [address] [place] [address] swallow eval [facility] Comment on above: swallow eval Start: 03-14-2025 End: 03-14-2025 Patient encounter procedure 03/14/2025 8:45 AM EDT Procedure Visit [facility] [address] [place] [address] Lavonne Thomas, SENIOR STRATEGY ANALYST [address] [facility] [address] [id number] [facility] Start: 03-06-2025 End: 03-06-2025 Patient encounter procedure 03/06/2025 1:30 PM EDT Office Visit [facility] [address] [place] [address] Shantanu Robles MD [facility] [facility] [address] [place] [address] [facility] Start: 02-26-2025 End: 02-26-2025 Patient encounter procedure [facility] Comment on above: New gp consult Start: 02-25-2025 COVID-19 Vaccine ( season) COVID-19 Vaccine ( season) [facility] Start: 02-25-2025 Influenza vaccination [facility] Start: 02-19-2025 End: 02-19-2025 Patient encounter procedure 02/19/2025 12:45 PM EDT [facility] G[facility] [address] [address] Edenilson Schmitz, RD [address] [address] New gp consult Gastroenterology Comment on above: New gp consult Start: 02-19-2025 End: 02-19-2025 Admission to same day surgery center 02/19/2025 11:00 AM EDT [facility] General Surgery [facility] [address] [place] [address] [place] [address] New gp consult General Surgery Comment on above: New gp consult Start: 02-15-2025 End: 02-15-2025 Patient encounter procedure [facility] Gastrointestinal Comment on above: swallow eval Start: 02-15-2025 End: 02-15-2025 Telemedicine consultation with patient [facility] 210 Comment on above: Chronic migraine without aura without st atus migrainosus, not intractable Start: 02-06-2025 End: 02-06-2025 Patient encounter procedure 02/06/2025 3:00 PM EDT Office Visit [facility] [address] [facility] [address] [place] [address] Sierra Anna, SENIOR STRATEGY ANALYST [address], [facility] [address] [place] [phone] [facility] Start: 01-23-2025 End: 01-23-2027 Heart Transthoracic Transthoracic Echo Complete Echocardiography Routine Supraventricular tachycardia, unspecified Shortness of breath Palpitations Expected: 01/23/2025 (Approximate), Expires: 01/23/2027 [facility] Service Area Work Phone: Comment on above: Expected: 01/23/2025 (Approximate), Expi res: 01/23/2027 Start: 01-17-2025 End: 01-17-2025 Patient encounter procedure 01/17/2025 3:15 PM EDT Office Visit [facility] [address] [place], [place] [id number] Jace Salas, OD [address] [facility] [place] [address] Diagnostics, [facility] [address] [address] Vision changes [H53.9] Ophthalmology Comment on above: Vision changes [H53.9] Start: 01-11-2025 End: 01-11-2025 Patient encounter procedure 01/11/2025 11:15 AM EDT OT/PT/Speech Visit [facility] Speech Therapy [address] [place] [address] Kassy Pang, [facility] ATTENDANT [address] [place] [address] consult [facility] Therapy Comment on above: consult Start: 01-03-2025 End: 01-03-2025 Telemedicine consultation with patient 01/03/2025 4:00 PM EDT Telemedicine [facility] [address] [place] [phone] Lavonne Thomas, SENIOR STRATEGY ANALYST [address] [place] [address] Arrived [facility] 210 Comment on above: Arrived Start: 12-27-2024 Adult BMI Screening Adult BMI Screening [facility] Start: 12-27-2024 Tobacco Screening Tobacco Screening [facility] Start: 12-24-2024 End: 12-24-2024 Patient encounter procedure 12/24/2024 2:45 PM EDT Office Visit [facility] [address] [place] [address] JESENIA RIBEIRO [address] [place] [address] Debbie Mckeon MD [address] [place] [address] [facility] Start: 12-10-2024 End: 12-10-2024 Patient encounter procedure 12/10/2024 4:15 PM EDT Office [facility] JESENIA [address] [place] [phone] Debbie Mckeon MD [address] [place] [address] [facility] Start: 12-08-2024 Urine screening for protein Diabetes: Urine Protein Screening [facility] Start: 12-06-2024 End: 12-06-2024 Patient encounter procedure [facility] Comment on above: Arrived Start: 11-28-2024 [...] Screening [facility] Start: 10-15-2024 [facility] Start: 10-15-2024 Hemoglobin A1c measurement HbA1C [facility] Start: 10-09-2024 Adult BMI Screening Adult BMI Screening [facility] Start: 10-09-2024 Tobacco Screening Tobacco Screening [facility] Start: 09-25-2024 End: 09-25-2024 Patient encounter procedure 09/25/2024 10:20 AM EDT Office Visit [facility] [address] [place] [address] Ainsley Graham MD [address] [place] [address] [facility] Start: 09-22-2024 Tobacco Screening [...] 09-12-2024 Adult BMI Screening [facility]ening [facility] Start: 09-12-2024 Tobacco Screening Tobacco Screening [facility] Start: 09-06-2024 Adult BMI Screening Adult BMI Screening [facility] Start: 09-06-2024 End: 09-06-2024 Patient encounter procedure [facility] Comment on above: Arrived Start: 09-06-2024 Subsequent hospital visit by physician 09/06/2024 11:04 AM EDT Hospital Encounter [facility] [address] [place] [address] Right kidney stone [facility] Comment on above: Right kidney stone Start: 08-25-2024 Depression Screening Depression Screening [facility] Start: 08-25-2024 Tobacco Screening Tobacco Screening [facility] Start: 08-23-2024 End: 08-23-2024 Patient encounter procedure 08/23/2024 10:00 AM EST Office Visit [facility] [address] [place] [address] Ainsley Graham MD [address] [place] [address] [facility] Start: 08-21-2024 End: 08-21-2024 Patient encounter procedure 08/21/2024 2:30 PM EST Office Visit [facility] [address] [place] [address] Nahun Gongora, OD [address] [place] [address] Diabetic eye screening Ophthalmology Comment on above: Diabetic eye screening Start: 08-20-2024 End: 08-20-2024 Patient encounter procedure 08/20/2024 2:20 PM EST Office Visit [facility] [address] [place] [phone] Caleb Easton MD [address] [facility] [address] [id number] [facility] Start: 07-28-2024 Adult BMI Screening Adult BMI Screening [facility] tem Start: 07-28-2024 Tobacco Screening Tobacco Screening [facility] tem Start: 07-27-2024 End: 07-27-2024 Patient encounter procedure 07/27/2024 8:30 AM EST Office Visit [facility] [address] [place] [address] Nahun Gongora, OD [address] [place] [address] Mild protein-calorie malnutrition (HCC) [E44.1]; Vision changes [H53.9] Ophthalmology Comment on above: Mild protein-calorie malnutrition (HCC) [E44.1]; Vision changes [H53.9] Start: 07-26-2024 End: 07-26-2024 Patient encounter procedure [facility] Comment on above: Arrived Start: 07-19-2024 End: 07-19-2024 ambulatory 07/19/2024 9:00 AM EST Education Endocrinology [address] [place] [address] [place] [address] [place] [address] endo dietitian Endocrinology Comment on above: endo dietitian Start: 07-17-2024 Hemoglobin A1c measurement Diabetes: Hemoglobin A1C [facility] Start: 07-16-2024 End: 07-16-2024 Patient encounter procedure 07/16/2024 11:00 AM EST Office Visit [facility] [address] [place] [address] Nahun Gongora, OD [address] [place] [address] Mild protein-calorie malnutrition (HCC) [E44.1]; Vision changes [H53.9] Ophthalmology Comment on above: Mild protein-calorie malnutrition (HCC) [E44.1]; Vision changes [H53.9] Start: 07-08-2024 End: 07-08-2025 Home EEG w/Video 12-26hrs Home EEG w/Video 12-26hrs Neurology Routine Seizure disorder (CMS/HCC) Expected: 07/08/2024 (Approximate), Expires: 07/08/2025 [facility] Work Phone: Comment on above: Expected: 07/08/2024 (Approximate), Expi res: 07/08/2025 Start: 07-07-2024 Tobacco Screening Tobacco Screening [facility] Start: 07-04-2024 End: 07-04-2024 Patient encounter procedure 07/04/2024 10:00 AM EST Appointment [facility] - Ultrasound [address] [place] [address] [facility] -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 Solis, DO Aman So Jr, DO~ Ordering Provider: Tere Solis DO Date of Service: 11/01/24 NM/LA gastric emptying study: R11.2 - Nausea with [...] of the radiotracer remained within the stomach. LA/LA gastric emptying study IMPRESSION: SCINTIGRAPHIC EVIDENCE OF GASTROPARESIS. Impression dictated by: Aman So Jr., D.O. 11/01/2024 1:24 PM Dictation Location: [place] [address] Transcribed By: [facility] 11/01/24 1324 Dictated By: Aman So Jr, DO 11/01/24 1322 Signed By: 11/01/24 1324 [facility] 10-16-2024 Note [place] Electrophysiology Consult Note Reason [...] yesterday due to vomiting. LOOP reveals logn MI tachycardia in 170bpm. Many episodes noted. Review [...] questionable seizures. She was initially admitted to [facility] and then thereafter transferred to [facility]. Reportedly he had wqss-th-lsug seizures while he was undergoing his physical [...] on August 10 that he went to [facility]. EKG that performed shows evidence of [...] Use: Not At Risk (11/25/2023) Received from [employer], [employer] Frequency of Alcohol Consumption: Monthly or less Average Number of Drinks: 1 or 2 Frequency of Binge Drinking: Never Financial Resource Strain: Not on file Food Insecurity: No Food Insecurity (08/16/2024) Received from [employer] Hunger Screening Within the (more content not included)... [facility] 10-15-2024 History and physi raman note [facility] enter 10-15-2024 Procedure note [facility] enter 10-12-2024 Miscellaneous Notes 10/12 order received Called PT LM to schedule sleep study. PSG order & 09/06 Graziani notes in MM documented in this encounter [facility] 10-12-2024 Telephone encounter Note 10/12 order received Called PT LM to schedule sleep study. PSG order & 09/06 Graziani notes in MM [facility] 10-11-2024 Miscellaneous Notes Received notes, called drs office to get order faxed over to us documented in this encounter [facility] 10-11-2024 Telephone encounter Note Received notes, called drs office to get order faxed over to us [facility] 10-10-2024 Telephone encounter Note OARRS reviewed. [facility] 10-10-2024 Miscellaneous Notes OARRS reviewed. documented in this encounter [facility] 10-08-2024 Note HNO ID: [id number] Author: NAHUN GONGORA OD Service: ? Author Type: STATISTICAL CLERK ADVERTISING Type: Progress Notes Filed: 10/08/2024 13:56 Note [...] Gongora, OD October 08, 2024 1:[address] [facility] 10-08-2024 History of Presen t illness [...] 2024 1:55 PM documented in this encounter [facility] 09-27-2024 Evaluation note Diagnosis Onset Date Resolution Abdominal pain acute September 27, 2024 1:11pm Nausea & vomiting acute September 272024 1:11pm Weight loss, abnormal acute Apr 2024 1:11pm [facility] Work Phone: 1(603) 528-178004-02-2025 History and physical note Author Tere Solis [facility] Note Date/Time October 15, 2024 3:0 2pm [facility] [address] [place] [address] Gastroenterology H&P Signed Patient: Karis Kovacs MR#: [id number] : 2000 Acct:[id number] Age/Sex: 24 / F Adm Date: 5 Loc: Room: Type: [facility] Attending Dr: Tere Solis DO Copies to: Tere Solis DO Kavin French DO~ Date of Service: 10/15/2024 HISTORY & PHYSICAL: [...] signed by Tere Solis DO> 10/15/24 1411 [facility] Work Phone: 1(700) 764-254003-11-2025 History of Present illness Narrative* Ainsley Graham [...] Visit: 4 weeks documented in this encounterSaint [facility]'s Health [id number] History of Present illness Narrative* Debbie Mckeon MD - 09/03/2024 2:15 PM EDT Images from the original note were not included. [address] [facility] [facility] [id number] Patient: Karis Kovacs Date of : 2000 [...] teeth Depression Diabetes mellitus type 2, controlled ([facility]) dx 2020 Dizziness Epilepsy ([facility]) dx 16 years old Fractures right thumb [...] nonobstructing stones. Will upload the fi Seizures ([facility]) last seizure was 08/23/23 SVT (supraventricular tachycardia) ([facility]) Syncope 07/2023 Transgender Patient prefers to be called Langston Visual impairment Past Surgical History: Procedure Laterality Date BREAST SURGERY Bilateral 12/04/2020 mastectomy CYSTOSCOPY INSERTION STENT URETER Right 11/24/2021 Performed by Debbie Mckeon MD at [facility] CYSTOSCOPY REMOVAL STENT Right 12/09/2021 Performed by Debbie Mckeon MD at [facility] CYSTOSCOPY RETROGRADE PYELOGRAM Bilateral 10/17/2023 Performed by Debbie Mckeon MD at [facility] INSERTION LOOP RECORDER 08/03/2023 LASER HOLMIUM [...] 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 [facility] History of Present illness Narrative* Karen Neely APRN-KARLOSM - 08/16/2024 11:30 AM EST Yonatan presents [...] teeth Depression Diabetes mellitus type 2, controlled ([facility]) dx 2020 Dizziness Epilepsy ([facility]) dx 16 years old Fractures right thumb [...] nonobstructing stones. Will upload the fi Seizures ([facility]) last seizure was 08/23/23 SVT (supraventricular tachycardia) ([facility]) Syncope 07/2023 Transgender Patient prefers to be called Yonatan Visual impairment SURGICAL HX Past Surgical History: Procedure Laterality Date BREAST SURGERY Bilateral 12/04/2020 mastectomy CYSTOSCOPY INSERTION STENT URETER Right 11/24/2021 Performed by Debbie Mckeon MD at [facility] CYSTOSCOPY REMOVAL STENT Right 12/09/2021 Performed by Debbie Mckeon MD at [facility] CYSTOSCOPY RETROGRADE PYELOGRAM Bilateral 10/17/2023 Performed by Debbie Mckeon MD at [facility] INSERTION LOOP RECORDER 08/03/2023 LASER HOLMIUM URETEROSCOPY RENAL STONES < OR=1CM Right 11/24/2021 Performed by Debbie Mckeon MD at [facility] Family History Problem Relation [...] Love APRN-CNM 08/16/24 1221 documented in [facility]25 Telephone encounter Note* Telephone Encounter - Lavonne Thomas NP - 08/14/2024 2:45 PM EST Very common with virus and infection to have seizures. I Clever Machinehart messaged patient. [facility] [id number] Miscellaneous Notes* Telephone Encounter - Lavonne Thomas NP - 08/14/2024 2:45 PM EST Very common with virus and infection to have seizures. I [employer] messaged patient. * Telephone Encounter - Enriqueta Goss - 08/14/2024 1:08 PM EST Patient called and wanted to make Dr. Rustam Oconnor aware that currently admitted at [facility] for Influenza A and also having seizures. States that he hit his head and they did CT. He currently has an appt scheduled for Tuesday08/20/24. documented in this encounterSaint John's Health [id number] Telephone encounter Note* Telephone Encounter - Enriqueta Goss - 08/14/2024 1:08 PM EST Patient called and wanted to make Dr. Rustam Oconnor aware that currently admitted at [facility] for Influenza A and also having seizures. States that he hit his head and they did CT. He currently has an appt scheduled for Tuesday08/20/24. [facility] [id number] Miscellaneous Notes* Telephone Encounter - MARY Edwards - 08/08/2024 10:45 AM EST Pt calls c/o dysuria, frequency and a little blood when wiping. Pt also wet the bed last night. This all started yesterday. Order placed for urine culture. Pt will go today. Pt will wait for results. documented in this [facility]02-[facility]-2025 Telephone encounter Note* Telephone Encounter - MARY Edwards - 08/08/2024 10:45 AM EST Pt calls c/o dysuria, frequency and a little blood when wiping. Pt also wet the bed last night. This all started yesterday. Order placed for urine culture. Pt will go today. Pt will wait for results. [facility]02-05-2025 Telephone encounter Note* Telephone Encounter - Karo Slater - 08/01/2024 1:00 PM EST Sent a MyChart to this patient advising him to contact his PCP [facility]02-05-2025 Miscellaneous Notes* Telephone Encounter - Karo [...] was given. Please advise. documented in this encounterMer[facility]-2025 Telephone encounter Note * Telephone Encounter - Gale Bassett APRN.AMELIA - 08/01/2024 11:36 AM EST PCP is to contact for this referral [facility] Work Phone: 1(867) 733-848502-05-2025 Telephone encounter Note* Telephone Encounter - Karo Slater - 08/01/2024 9:51 AM EST Found on the Endo [facility] for Earline Bassett: Pt, IS REQUESTING PROVIDER TO [facility] FOR SPEECH THERAPY. No other information was given. Please advise. [facility]01-30-2025 History of Present illness Narrative* Ainsley [...] months (acne follow up) documented in this [facility]01-28-2025 Telephone encounter Note* Telephone Encounter - Sierra Anna NP - 07/24/2024 4:40 PM EST Script sent. OARRS reviewed [facility] [id number] Miscellaneous Notes* Telephone Encounter - Sierra Anna NP - 07/24/2024 4:40 PM EST Script sent. OARRS reviewed * Telephone Encounter - Enriqueta Goss - 07/24/2024 8:33 AM EST Patient called to verify his EEG appt today. Also states that he is needing refill of Nayzilam to be sent to [facility] in [place]. documented in this [facility]01-28-2025 Telephone encounter Note* Telephone Encounter - Enriqueta Goss - 07/24/2024 8:33 AM EST Patient called to verify his EEG appt today. Also states that he is needing refill of Nayzilam to be sent to [facility] in [place]. [facility] [id number] NoteHNO ID: [id number] Author: GLORIA ZACARIAS RD Service: ? Author Type: Registered Dietitian Type: Progress Notes Filed: 07/18/2024 17:47 Note Text: [facility] Medical Nutrition Therapy Visit Type: I have communicated my name and active licensure. The patient's identity and physical location were verified at the time of this visit. Either the patient or their legal warehouse representative has been informed of the risks [...] with butter or instant potatoes soft foods burkinan fries prepared in oven, sometimes chicken nuggets, water Snack: sometimes banana 12-3AM BT 10 PM fall asleep 1 hour later Fluids water, avoids caffeine due to SZ ETOH denies Dining/eating out? Seldom - [employer] Allergies: No Food Allergy Avoids: (texture or color- purple, red) Meat Milk Chicken Oatmeal Rice Fish Cereal Willing to try: Egg Cheese Ice cream Ensure / pro shake while in hospital [place] butter Noodles buttered Patient / Provider Comments: [...] by mouth. Needle, Disp, (more content not included)...[facility]01-22-2025 History of Present illness Narrative* Gloria Zacarias, RD - 07/18/2024 2:54 PM EST [facility] Medical Nutrition Therapy Visit Type: I have communicated my name and active licensure. The patient's identity and physical location wereverified at the time of this visit. Either the patient or their legal warehouse representative has been informed of the risks [...] with butter or instant potatoes soft foods burkinan fries prepared in oven, sometimes chicken nuggets, water Snack: sometimes banana 12-3AM BT 10 PM fall asleep 1 hour later Fluids water, avoids caffeine due to SZ ETOH denies Dining/eating out? Seldom - [employer] Allergies: No Food Allergy Avoids: (texture or color- purple, red) Meat Milk Chicken Oatmeal Rice Fish Cereal Willing to try: Egg Cheese Ice cream Ensure / pro shake while in hospital [place] butter Noodles buttered Patient / Provider Comments: [...] Metabolic Rate: 1142 Calories for Weight Gain 6721-2918 kcal Nutrition Intervention: [employer] resources provided Nutrition Monitoring & Evaluation: Dietitian Goals: Weight gain of 5% in 3-6 months Criteria: Weight Patient Stated Goals at today's visit: 1. Try to eat something before 12PM when you have privacy in the kitchen, instead of only eating one meal a day. 2. As discussed, consider trying any of the following foods Egg Cheese, Ice cream, Ensure / pro shake, [place] butter, Noodles buttered 3. Follow up with psychology regarding sensory issues with food selections for both texture and color. Adherence Potential to Goals: Fair Need for Follow up: as needed Referred by: Gale Bassett, [employer], MANUFACTURING INSPECTOR Consult Billing Type/Increments: Initial Assessment/15 minutes, 3 increment(s), 45 minutes Start time: 3:00 PM End time: 3:42 PM My final report will be communicated back to the requesting physician by way of shared medical record. Signed by: Gloria Zacarias RD documented in this encounterMer[facility]01-12-2025 Telephone encounter Note * Telephone Encounter - Lavonne Thomas NP - 07/08/2024 9:11 PM EST I placed order for 24-72 hour EEG with video for home. Alma please schedule patient. [facility] [id number] Miscellaneous Notes* Telephone Encounter - Lavonne Thomas NP - 07/08/2024 9:11 PM EST I placed order for 24-72 hour EEG with video for home. Alma please schedule patient. * Telephone Encounter - Siobhan Dannie - 07/08/2024 5:33 PM EST Per Lavonne Thomas NP yes we can order 24 hour video at office * Telephone Encounter - Siobhan Dannie - 07/08/2024 5:09 PM EST Subjective Patient ID: Yonatan Kovacs is a 24 y.o. female pt called in stating she is at the [facility] due to seizures and they are wanting to transfer her to [place] for a 24 hour EEG, Pt does not want to do that and wants to know if she can get this done at the office? documented in this encounterNOBarnes-Jewish West County [id number] Telephone encounter Note* Telephone Encounter - Siobhan Pandey - 07/08/2024 5:33 PM EST Per Lavonne Thomas NP yes we can order 24 hour video at office [facility] [id number] Telephone encounter Note* Telephone Encounter - Siobhan Pandey - 07/08/2024 5:09 PM EST Subjective Patient ID: Yonatan Kovacs is a 24 y.o. female pt called in stating she is at the [facility] due to seizures and they are wanting to transfer her to [place] for a 24 hour EEG, Pt does not want to do that and wants to know if she can get this done at the office? [facility] [id number] Telephone encounter Note* Telephone Encounter - Lavonne Thomas NP - 07/03/2024 2:25 PM EST OARRS reviewed. [facility] [id number] Miscellaneous Notes* Telephone Encounter - Lavonne Thomas NP - 07/03/2024 2:25 PM EST OARRS reviewed. documented in this encounterSaint John's Health [id number] History of Present illness Narrative* Debbie Mckeon MD - 06/29/2024 4:45 PM EST Images from the original note were not included. [address] [facility] [address] Patient: Karis Kovacs Date of : 2000 [...] teeth Depression Diabetes mellitus type 2, controlled ([facility]) dx 2020 Dizziness Epilepsy ([facility]) dx 16 years old Fractures right thumb Gender dysphoria Head injury fell off skate board about 6 ft at age 15 y.o Headache Hematuria here for workup for pending cystoscopy History of renal calculi Implantable loop recorder present upper left chest Memory loss Nexplanon in place Orthostatic hypotension Panic disorder Rash acne on Ceftin as maintenance dose Seizures ([facility]) last seizure was 08/23/23 SVT (supraventricular tachycardia) ([facility]) Syncope 07/2023 Transgender Patient prefers to be called Langston Visual impairment Past Surgical History: Procedure Laterality Date BREAST SURGERY Bilateral 12/04/2020 mastectomy CYSTOSCOPY INSERTION STENT URETER Right 11/24/2021 Performed by Debbie Mckeon MD at [facility] CYSTOSCOPY REMOVAL STENT Right 12/09/2021 Performed by Debbie Mckeon MD at [facility] CYSTOSCOPY RETROGRADE PYELOGRAM Bilateral 10/17/2023 Performed by Debbie Mckeon MD at [facility] INSERTION LOOP RECORDER 08/03/2023 LASER HOLMIUM [...] - Ultrasound retroperitoneal complete; Future Epilepsy, 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[facility]) Other orders - mirabegron (MYRBETRIQ) 50 [...] center for the back pain. Referral to blast furnace supervisor for the ovarian cyst. Previous ultrasound showed retention, but PVR today is 71. 1/11/24: Bilateral back pain since Nov. No obvious [...] you for your understanding. documented in this encounterSouthwest [facility]12-27-2024 Telephone encounter Note* Telephone Encounter - Gale Bassett APRN.CNP - 06/22/2024 7:33 AM EST Metformin should be discontinued from med list at this time - not diabetic at this time - no elevated glucose levels noted on CGM. [facility]12-27-2024 Miscellaneous Notes* Telephone Encounter - Gale [...] Department CÉSAR DIETITIAN VISIT 07/19/2024 9:00 AM [facility] DIAB ED [facility] . Requested Prescriptions Pending Prescriptions Disp [...] needs scheduled appointment No documented in this encounterMercy [facility]12-26-2024 Telephone encounter Note * Telephone Encounter - Jessi Sanford MA - 06/21/2024 4:13 PM EST Requester: Pharmacy Patients last Endocrinology visit occurred 06/18/24. Follow-up evaluation has been established Upcoming Endocrinology Appointments - Next 365 Days Visit Type Date Time Department CÉSAR DIETITIAN VISIT 07/19/2024 9:00 AM [facility] DIAB ED [facility] . Requested Prescriptions Pending Prescriptions Disp [...] PSS NOTE: Patient needs scheduled appointment No [facility]12-23-2024 Telephone encounter Note* Telephone Encounter - Karo Slater - 06/18/2024 3:16 PM EST Pt is scheduled on 07/27/24 and added to [facility]12-23-2024 Miscellaneous Notes* Telephone Encounter - Karo Slater - 06/18/2024 3:16 PM EST Pt is scheduled on 07/27/24 and added to [facility] documented in this encounterMercy Health Lorain Hospital12-23-2024 NoteHNO ID: [id number] Author: JESSI SANFORD MA Service: ? Author Type: Film Rental Clerk Type: Progress Notes Filed: 06/18/2024 10:50 Note Text:[facility]12-23-2024 History of Present illness Narrative* Jessi Sanford MA - 06/18/2024 10:18 AM EST Images from the original note were not included. * Gale Bassett, [facility] - 06/18/2024 10:00 AM EST DISTANCE HEALTH VISIT This visit is a virtual Video encounter. It required patient-provider interaction for the medical decision making as documented below. I have communicated my name and active licensure. The patient's identity and physical location were verified at the time of this visit. Either the patient or their l egal warehouse representative has been informed of the risks and benefits of -- and alternatives to -- treatment through a remote evaluation and consents to proceed with the evaluation remotely. Endocrinology Follow Up Subjective History of Present Illness Karis Noemy Kovacs presents today for follow up of [...] for most recent 14 days: CGM Type: First Aid Shot Therapy G7 CGM recording adequate for interpretation: Yes [...] SQ Q2wks Medical Supplies and DME - [place] and Syringes brivaracetam (BRIVIACT) 100 mg tablet [...] testosterone Q2wks Medical Supplies and DME - [place] and Syringes Needle, Disp, 23 G 23 gauge x 3/4 ndle For use with testosterone administration SQ Q2wks Medical Supplies and DME - [place] and Syringes ondansetron orally disintegrating (ZOFRAN ODT) [...] placed) to help with texture aversion and Tooling Inspector (appt scheduled) to work with you [...] advised early treatment will prevent long term care pharmacist complications and possible hospital admission Vision changes [...] which included preparing to see the patient, thnb-kv-jori patient care, completing clinical documentation, obtaining and/or reviewing separately obtained history, performing a medically appropriate examination, counseling and educating the pat ient/family/caregiver, and ordering medications, tests, or procedures. Gale Bassett APRN.CNP Department of Endocrinology [facility] Answers submitted by the patient for [...] Loss: No Seizures: No documented in this encounterMercy Health Lorain Hospital12-23-2024 NoteHNO ID: [id number] Author: GALE BASSETT APRN.CNP Service: ? Author [...] visit. Either the patient or their legal warehouse representative has been informed of the risks [...] for most recent 14 days: CGM Type: First Aid Shot Therapy G7 CGM recording adequate for interpretation: Yes [...] SQ Q2wks Medical Supplies and DME - [place] and Syringes brivaracetam (BRIVIACT) 100 mg tablet [...] Phenyltriazine Derivatives LORazepam (ATIV (more content not included)...[facility] 06-12-2024 Telephone encounter Note* Telephone Encounter - Marian Damon - 06/12/2024 2:01 PM EST Patient called in to say he's having tingling, numbness, and extremely painful headaches. Please follow up with patient and advise. [facility] [id number] Miscellaneous Notes* Telephone Encounter - Marian Damon - 06/12/2024 2:01 PM EST Patient called in to say he's having tingling, numbness, and extremely painful headaches. Please follow up with patient and advise. documented in this encounterSaint John's Health [id number] NoteUT Electrophysiology Consult Note Reason for visit: [...] questionable seizures. She was initially admitted to [facility] and then thereafter transferred to [facility]. Reportedly he had nwbk-jd-cqzk seizures while he was undergoing his physical [...] was noted on January 05, 2024 HPI: Kairs Kovacs is a 23 y.o. year old [...] on August 10 that he went to [facility]. EKG that performed shows evidence of [...] Tobacco Use: Low Risk (05/21/2024) [facility] Patient History Smoking Tobacco Use: Never Smokeless Tobacco Use: Never Passive Exposure: Not on file Alcohol Use: Not At Risk (11/25/2023) Received from [employer], [employer] AUDIT-C Frequency of Alcohol Consumption: Monthly or less Average Number of Drinks: 1 or 2 Frequency of Binge Drinking: Never Financial Resource Strain: Not on file Food Insecurity: No Food Insecurity (02/04/2024) Received from [employer], [employer] Hunger Screening Within the past 12 months we worried whether our food would run out before we got money to buy more.: Never True Within the past 12 months the food we bought just didn't last and we didn't have money to get more.: Never True Transportation Needs: No Transportation Needs (11/25/2023) Received from [employer], [employer] PRAPARE - Transportation Lack of Transportation (Medical): No Lack of Transportation (Non-Medica (more content not included)...[facility]12-02-2024 Telephone encounter Note* Telephone Encounter - Enriqueta Goss - 05/28/2024 11:06 AM EST Patient called and states that [facility] in [place] is unable to fill the Focalin as they are currently out. Patient is wanting to know if this can be resent to [facility] in [place]. [phone] [facility] [id number] Miscellaneous Notes* Telephone Encounter - Enriqueta Goss - 05/28/2024 11:06 AM EST Patient called and states that [facility] in [place] is unable to fill the Focalin as they are currently out. Patient is wanting to know if this can be resent to [facility] in [place]. [phone] documented in this encounterSaint John's Health SystemThpzcjbewt31-55-0216 History of Present illness Narrative* Caleb Easton [...] Depression: Not at risk (11/25/2023) Received from [employer], [employer] PHQ-2 Total Score: 0 REVIEW OF SYMPTOMS: [...] reflexes: Aj's absent. Ankle clonus absent. Coordination Wxfjyc-ef-iukb, rapid alternating movements and lric-ti-fagt normal bilaterally without dysmetria. Gait Normal casual, [...] up 3 months. documented in this encounterSaint John's Health [id number] Telephone encounter Note* Telephone Encounter - Jessi Sanford MA - 05/18/2024 4:34 PM EST Called and informed pt of below message. Placed sensors at Desk C for scrap picker. Jessi Sanford MA [facility]11-22-2024 Miscellaneous Notes* Telephone Encounter - Jessi Sanford MA - 05/18/2024 4:34 PM EST Called and informed pt of below message. Placed sensors at Desk C for scrap picker. Jessi Sanford MA * Telephone Encounter - Gale Bassett APRN.AMELIA - 05/18/2024 4:24 PM EST Please discontinue [...] disk to his arm Pharm [facility]/ [place] documented in this encounterMercy Health Lor[facility] Hospital11-22-2024 Telephone encounter Note * Telephone Encounter - Gale Bassett APRN.AMELIA - 05/18/2024 4:24 PM EST Please discontinue metformin and come in for 2 more sensors - to see how you do off of the medication [facility]11-22-2024 Telephone encounter Note* Telephone Encounter - Jessi Sanford MA - 05/18/2024 3:36 PM EST Images from the original note were not included. Full Dexcom report printed and placed on providers desk for review. [facility]11-22-2024 Telephone encounter Note* Telephone Encounter - Jaqueline Coronado RN - 05/18/2024 2:15 PM EST Pt calls Seen 04-16-2024 Ov notes reviewed Asking if provider would like pt to stay on dexcom 7 He has applied the last disk to his arm Pharm on dial [facility] [place] [facility]11-07-2024 History of Present illness Narrative* [...] Patient reports already being scheduled tosee a mechanical equipment test engineer to help work on diet. Discussed starting [...] Visit: 2 months documented in this encounterSaint John's Health [id number] NoteHNO ID: [id number] Author: BASIM STEARNS LSW Service: ? Author Type: Cherry Cutter Type: Progress Notes Filed: 04/30/2024 12:34 Note Text: Endocrine Psychology Welcome Group Karis Kovacs 2000 [phone] Date of Service: April 30, 2024 Patient advised of group visit and informed of privacy restrictions with group appointment. Patient instructed to be in a quiet, private area. Provided information for general psychology both within and outside the [facility]. This is appropriate for patients who experience mental health symptoms such as Depression, Anxiety, OCD, Bipolar disorder, etc. Discussed Endocrine Psychology resources for individuals who experience Night Eating, Binge Eating, Emotional Eating, Body Image, and Support for long-term weight management. Current Endocrine Psych Treatment consists of Individual and Group appointments. Informed patient on Endocrine outside maintenance worker services to assist with community resource management. Patient is cleared to schedule with Endocrine Psychology Services (individual appointments, group appointments, etc.) This appointment was conducted by: CHEYENNE Nicholas April 30, 2024 12:34 [id number] History of Present illness Narrative* Basim Stearns LSW - 04/30/2024 12:34 PM EST Endocrine Psychology Welcome Group Karis Kovacs 2000 [phone] Date of Service: April 30, 2024 Patient advised of group visit and informed of privacy restrictions with group appointment. Patientinstructed to be in a quiet, private area. Provided information for general psychology both within and outside the [facility]. This is appropriate for patients who experience mental health symptoms such as Depression, Anxiety, OCD, Bipolar disorder, etc. Discussed Endocrine Psychology resources for individuals who experience Night Eating, Binge Eating,Emotional Eating, Body Image, and Support for long-term weight management. Current Endocrine Psych Treatment consists of Individual and Group appointments. Informed patient on Endocrine outside maintenance worker services to assist with community resource management. Patient is cleared to schedule with Endocrine Psychology Services (individual appointments, group appointments, etc.) This appointment was conducted by: CHEYENNE Nicholas April 30, 2024 12:34 PM documented in this encounterMercy Health Lorain Hospital10-21-2024 Instructions* Patient Instructions* Gale Bassett APRN.MANUFACTURING INSPECTOR - 04/16/2024 3:57 PM EDT We want [...] maybe look at more than 1 type Bennett - try a variety Little mica Protein Supplement: - Whey protein isolate (powder for mixing with milk, milk substitutes, or water) - best taken afterexercise - Pre made ready to drink protein shakes: Examples: Evolve (plant based protein shake), OWYN (plant based protein shake), Orgain Clean Protein (also comes in powder) , [employer] Power Message me in 2 and 4 weeks so we can discuss next steps with diabetes documented in this encounterMercy Health Lorain Hospital10-21-2024 Nurse Note* Jessi Sanford MA - 04/16/2024 3:12 PM EDT Last Eye Exam: thinks about a year ago Last Foot Exam: none Last A1C: 04/16/24 5.3% Not checking blood sugar regularly. [facility]10-21-2024 Nurse Note* Jessi Sanford MA - 04/16/2024 3:12 PM EDT Last Eye Exam: thinks about a year ago Last Foot Exam: none Last A1C: 04/16/24 5.3% Not checking blood sugar regularly. documented in this encounterMercy Health Lorain Hospital10-21-2024 History of Present illness Narrative* Gale Bassett APRN.MANUFACTURING INSPECTOR - 04/16/2024 3:00 PM EDT Endocrinology Initial Diabetes Assessment Karis Kovacs is here for a consultation regarding: Diabetes My final recommendations will be communicated back to the requesting physician by way of shared Medical record or letter to requesting physician via US mail. PCP is Kavin French Sr, DO Kavin French Sr [address] [place] [address] Subjective History of Present Illness Karis Kovacs [...] as above Physical Activity: Physically active with [employer] boarding Diet: Breakfast: cereal - Krave with [...] SQ Q2wks Medical Supplies and DME - [place] and Syringes lamoTRIgine (LAMICTAL) 25 mg tablet Take 100 mg by mouth twice daily. Anticonvulsant - Phenyltriazine Derivatives LORazepam (ATIVAN) 1 mg tablet Take 1 mg by mouth q 12 HR. Antianxiety Agent - Benzodiazepines Needle, Disp, 18 G (BD DISPOSABLE NEEDLES) 18 gauge x 1 ndle For use to withdraw testosterone Q2wks Medical Supplies and DME - [place] and Syringes Needle, Disp, 23 G 23 gauge x 3/4 ndle For use with testosterone administration SQ Q2wks Medical Supplies and DME - [place] and Syringes phenytoin ER (DILANTIN) 100 mg [...] 500 mg 2x daily with food - DexGTRAN G7 for glucose monitoring - advised if [...] which included preparing to see the patient, inxh-zz-orqc patient care, completing clinical documentation, obtaining and/or reviewing separately obtained history, performing a medically appropriate examination, counseling and educating the pat ient/family/caregiver, and ordering medications, tests, or procedures. Gale Bassett, MSN, MANUFACTURING INSPECTOR [facility] Endocrinology Specialties Department [facility] [address] [place], [place] [address] documented in this encounterMercy Health Lorain Hospital10-21-2024 NoteHNO ID: [id number] Author: GALE BASSETT APRN.MANUFACTURING INSPECTOR Service: ? Author Type: Nurse Practitioner Type: Progress Notes Filed: 04/16/2024 16:59 Note Text: Endocrinology Initial Diabetes Assessment Karis Kovacs is here for a consultation regarding: Diabetes My final recommendations will be communicated back to the requesting physician by way of shared Medical record or letter to requesting physician via US mail. PCP is Kavin French Sr, DO Kavin French Sr [address] [place] [address] Subjective History of Present Illness Karis Kovacs [...] SQ Q2wks Medical Supplies and DME - [place] and Syringes lamoTRIgine (LAMICTAL) 25 mg tablet Take 100 mg by mouth twice daily. Anticonvulsant - Phenyltriazine Derivatives LORazepam (ATIVAN) 1 mg tablet Take 1 mg by mouth q 12 HR. Antianxiety Agent - Benzodiazepines Needle, Disp, 18 G (BD DISPOSABLE NEEDLES) 18 gauge x 1 ndle For use to withdraw testosterone Q2wks Medical Supplies and DME - [place] and Syringes Needle, Disp, 23 G 23 gauge x 3/4 ndle For use with testosterone administration SQ Q2wks Medical Supplies and DME - [place] and Syringes phenytoin ER (DILANTIN) 100 mg [...] Codeine Hives, Itching Revi (more content not included)...[facility]08-22-2024 History of Present illness Narrative* Caleb [...] SCREEN: Past Medical History: Diagnosis Date Diabetes ([facility]/HCC) Seizures ([facility]) Past Surgical History: Procedure Laterality Date LOOP RECORDER IMPLANT Left MASTECTOMY Bilateral Social History Tobacco Use Smoking status: Never Smokeless tobacco: Never Vaping Use Vaping status: Never Used Substance Use Topics Alcohol use: Never Drug use: Yes Types: Marijuana Family History Problem Relation Name Age of Onset Cancer Other Melanoma Neg Hx Depression: Not at risk (11/25/2023) Received from [employer], [facility] PHQ-2 Total Score: 0 REVIEW OF [...] reflexes: Aj's absent. Ankle clonus absent. Coordination Bgwwnl-sw-clzc, rapid alternating movements and wflf-ye-tfzd normal bilaterally without dysmetria. Gait Normal casual, [...] tablets if needed for sleep. Seizure disorder (CMS/HCC) I counseled the patient on the possible side effects and interactions of medications. Follow up 3 months. documented in this encounterSaint John's Health [id number] History of Present illness Narrative* Jaja Sanders, [facility] - 12/28/2023 1:00 PM EDT Images from the original note were not included. [facility] [address] [facility] [id number] Subjective Patient ID: Karis Kovacs [...] teeth Depression Diabetes mellitus type 2, controlled ([facility]) dx 2020 Dizziness Epilepsy ([facility]) dx 16 years old Fractures right thumb Gender dysphoria Head injury fell off skate board about 6 ft at age 15 y.o Headache Hematuria here for workup for pending cystoscopy History of renal calculi Implantable loop recorder present upper left chest Memory loss Nexplanon in place Orthostatic hypotension Panic disorder Rash acne on Ceftin as maintenance dose Seizures ([facility]) last seizure was 08/23/23 SVT (supraventricular tachycardia) ([facility]) Syncope 07/2023 Transgender Patient prefers to be called [place] Visual impairment SOCIAL HISTORY Social History Occupational [...] procedures Referring and communicating with other health school childcare attendant (not separately reported) Documenting clinical information in the electronic or other health record Independently interpreting results (not separately reported) and communicating results to the patient/family/caregiver Care coordination (not separately reported) Thank you for the referral. Jaja Sanders CNP [facility] This note was created with the assistance of a speech recognition program. While intending to generate a timely document that accurately reflects the content of the visit, no guarantee can be provided that every grammatical or spelling mistake has been or will be identified or corrected. Thank you for your understanding. Jaja Sanders APRN-AMELIA 12/28/23 1652 documented in this [facility]07-03-2024 Instructions* Patient Instructions* MILAGROS Duffy - 12/28/2023 1:00 PM EDT MRI lumbar spine, call [phone] to schedule We will call you with MRI results and further recoommendations documented in this encounterSouthwest General Health Center06-22-2024 Miscellaneous Notes* Telephone Encounter - Tito Durán RN - 12/17/2023 1:23 PM EDT ----- Message from Laura sent at 12/17/2023 1:26 PM EDT ----- Him Grady at [facility] requesting discharge summary from 11/24/23 from [facility] * Telephone Encounter - Tito Durán RN - 12/17/2023 1:23 PM EDT Epic accessed and and DC summary from [facility] faxed. documented in this encounterSouthwest General Health Center06-22-2024 Telephone encounter Note* Telephone Encounter - Tito Durán RN - 12/17/2023 1:23 PM EDT ----- Message from Laura sent at 12/17/2023 1:26 PM EDT ----- Theo Rasmussen [facility] requesting discharge summary from 11/24/23 from [facility] Telephone encounter Note* Telephone Encounter - Tito Durán RN - 12/17/2023 1:23 PM EDT [facility] accessed and and DC summary from [facility] faxed. [facility]06-[facility] Hospital Discharge instructions* Discharge Instructions* Aman Tapia MD - 12/01/2023 6:27 PM EDT Return to this emergency room immediately if your symptoms persist, worsen or if new ones form. Make sure you follow-up with your primary care doctor within the next 1-2 business days. * Attachments The following attachments cannot be sent through Care Everywhere. * Seizure (Vietnamese) documented in this encounterB[facility] History of Present illness Narrative* MILAGROS Duffy - 11/15/2023 12:30 PM EDT Images from the original note were not included. [facility] [address] [address] Subjective Patient ID: Karis Kovacs [...] as MS. In reading the physical therapy bisi Tam reported symptoms that were widespread and not [...] teeth Depression Diabetes mellitus type 2, controlled ([facility]) dx 2020 Dizziness Epilepsy ([facility]) dx 16 years old Fractures right thumb Gender dysphoria Head injury fell off skate board about 6 ft at age 15 y.o Headache Hematuria here for workup for pending cystoscopy History of renal calculi Implantable loop recorder present upper left chest Memory loss Nexplanon in place Orthostatic hypotension Panic disorder Rash acne on Ceftin as maintenance dose Seizures ([facility]) last seizure was 08/23/23 SVT (supraventricular tachycardia) ([facility]) Syncope 07/2023 Transgender Patient prefers to be called [place] Visual impairment SOCIAL HISTORY Social History Occupational [...] low back pain with bilateral sciatica - [facility] [place], [place]; Future - naproxen (NAPROSYN) 500 mg tablet; Take 1 tablet (500 mg total) by mouth in the morning and 1 tablet (500 mg total) before bedtime. Dispense: 60 tablet; Refill: 3 2. Muscle spasm - [place], [place]; Future - naproxen (NAPROSYN) 500 mg tablet; Take 1 tablet (500 mg total) by mouth in the morning and 1 tablet (500 mg total) before bedtime. Dispense: 60 tablet; Refill: 3 3. Chronic bilateral low back pain, unspecified whether sciatica present - [place], [place]; Future - naproxen (NAPROSYN) 500 mg tablet; Take 1 tablet (500 mg total) by mouth in the morning and 1 tablet (500 mg total) before bedtime. Dispense: 60 tablet; Refill: 3 4. Low back pain, unspecified back pain laterality, unspecified chronicity, unspecified whether sciatica present - [facility] [place], [place]; Future - naproxen (NAPROSYN) 500 mg [...] procedures Referring and communicating with other health school childcare attendant (not separately reported) Documenting clinical information in the electronic or other health record Independently interpreting results (not separately reported) and communicating results to the patient/family/caregiver Care coordination (not separately reported) Thank you for the referral. Jaja Sanders [facility] This note was created with the assistance of a speech recognition program. While intending to generate a timely document that accurately reflects the content of the visit, no guarantee can be provided that every grammatical or spelling mistake has been or will be identified or corrected. Thank you for your understanding. MILAGROS Duffy 11/15/23 1505 documented in this [facility]05-21-2024 Instructions* Patient Instructions* MILAGROS Duffy - 11/15/2023 12:30 PM EDT Home exercises, perform each exercise 10 repetitions per day Referral to pain management Follow up in 6-8 weeks * Attachments The following attachments cannot be sent through Care Everywhere. * Back Exercises (Vietnamese) * Exercises for Upper Back Pain (Vietnamese) documented in this [facility]04-22-2024 Miscellaneous Notes* Telephone Encounter - Debbie Mckeon MD - 10/17/2023 7:48 PM EDT Please schedule follow up in 6 months with PA documented in this [facility]04-22-2024 Telephone encounter Note* Telephone Encounter - Debbie Mckeon MD - 10/17/2023 7:48 PM EDT Please schedule follow up in 6 months with PA [facility]04-15-2024 History and physical note* DAWSON Vazquez - 10/10/2023 10:00 AM EDT PRE-ADMISSION TESTING HISTORY AND PHYSICAL EXAM DATE: 10/10/23 PCP: KAVIN FRENCH DO CHIEF COMPLAINT: Left flank pain HISTORY OF PRESENT ILLNESS: Karis Kovacs, a 23 y.o. White or adult, presents to [facility] for a pre-surgical H&P. Father [...] teeth Depression Diabetes mellitus type 2, controlled ([facility] dx 2020 Dizziness Epilepsy ([facility]) dx 16 years old Fractures right thumb Gender dysphoria Head injury Headache Hematuria here for workup for pending cystoscopy History of renal calculi Implantable loop recorder present upper left chest Memory loss Nexplanon in place Orthostatic hypotension Panic disorder Rash acne on Ceftin as maintenance dose Seizures ([facility] last seizure was 08/23/23 SVT (supraventricular tachycardia) ([facility]) Syncope 07/2023 Transgender Patient prefers to be called Yonatan Visual impairment PAST SURGICAL HISTORY: Past Surgical History: Procedure Laterality Date BREAST SURGERY Bilateral 12/04/2020 mastectomy CYSTOSCOPY INSERTION STENT URETER Right 11/24/2021 Performed by Debbie Mckeon MD at [facility] CYSTOSCOPY REMOVAL STENT Right 12/09/2021 Performed by Debbie Mckeon MD at [facility] INSERTION LOOP RECORDER 08/03/2023 LASER HOLMIUM URETEROSCOPY RENAL STONES < OR=1CM Right 11/24/2021 Performed by Debbie Mckeon MD at [facility] FAMILY HISTORY: Family History Problem Relation [...] (10 mg total) by mouth in the morning1999., Disp:, Rfl: erenumab-aooe (AIMOVIG AUTOINJECTOR) 140 mg/mL [...] the most recent lab values available in [facility] at the time ofthe office visit and additional labs may have been drawn since that time. ASSESSMENT / DIAGNOSIS: Gross hematuria PLAN: Karis Kovacs is scheduled for cystoscopy retrograde pyelogram bilateral by Dr. Mckeon on 10/17/23. DAWSON Vazquez 10/10/23 1050 DAWSON Vazquez 10/10/23 1104 DAWSON Vazquez 10/10/23 1130 [facility]04-15-2024 History and physical note* DAWSON Vazquez - 10/10/2023 10:00 AM EDT PRE-ADMISSION TESTING HISTORY AND PHYSICAL EXAM DATE: 10/10/23 PCP: KAVIN FRENCH DO CHIEF COMPLAINT: Left flank pain HISTORY OF PRESENT ILLNESS: Karis Kovacs, a 23 y.o. White or adult, presents to [facility] for a pre-surgical H&P. Father [...] teeth Depression Diabetes mellitus type 2, controlled ([facility]) dx 2020 Dizziness Epilepsy ([facility]) dx 16 years old Fractures right thumb Gender dysphoria Head injury Headache Hematuria here for workup for pending cystoscopy History of renal calculi Implantable loop recorder present upper left chest Memory loss Nexplanon in place Orthostatic hypotension Panic disorder Rash acne on Ceftin as maintenance dose Seizures ([facility] last seizure was 08/23/23 SVT (supraventricular tachycardia) ([facility]) Syncope 07/2023 Transgender Patient prefers to be called Yonatan Visual impairment PAST SURGICAL HISTORY: Past Surgical History: Procedure Laterality Date BREAST SURGERY Bilateral 12/04/2020 mastectomy CYSTOSCOPY INSERTION STENT URETER Right 11/24/2021 Performed by Debbie Mckeon MD at [facility] CYSTOSCOPY REMOVAL STENT Right 12/09/2021 Performed by Debbie Mckeon MD at [facility] INSERTION LOOP RECORDER 08/03/2023 LASER HOLMIUM URETEROSCOPY RENAL STONES < OR=1CM Right 11/24/2021 Performed by Debbie Mckeon MD at [facility] FAMILY HISTORY: Family History Problem Relation [...] the most recent lab values available in [facility] at the time ofthe office visit and additional labs may have been drawn since that time. ASSESSMENT / DIAGNOSIS: Gross hematuria PLAN: Karis Zuleta Bethanie is scheduled for cystoscopy retrograde pyelogram bilateral by Dr. Mckeon on 10/17/23. DAWSON Vazquez 10/10/23 1050 DAWSON Vazquez 10/10/23 1104 DAWSON Vazquez 10/10/23 1130 documented in this encounterProctor HospitalInspirotec [id number] Instructions* Patient Instructions* Siobhan Cain RN - 10/10/2023 10:00 AM EDT SURGERY DATE:10-17-23 ARRIVAL TIME:7:00am [facility]: Entrance # 6 Outpatient Surgery Center next to the Emergency Center. Bring a photo ID and your insurance card with you the day of surgery. If you have a Living Will/Durable Power of Life Sciences Director for Health Care which is not on file, please bring a copy with you the day of surgery. Please shower morning of procedure DO NOT apply deodorant, powder, lotion, aftershave, perfume, make-up, nail czech. HOLD ASPIRIN and ASPIRIN PRODUCTS for 7 days prior to surgery. IF you have been prescribed ASPIRIN by your Data Entry Manager or primary care physician, CONTACT Data Entry Manager or physician about holding aspirin for surgery. HOLD NSAIDs - Ibuprofen, Motrin, Aleve, Celebrex, mobic, meloxicam, etc. for 3 days prior to surgery. You may use Tylenol. HOLD vitamins, minerals, herbal supplements, and Holistic supplements for 7 days prior to surgery. Examples: Ephedra, garlic, gingko, ginseng, fish oil, (Lovaza, Vascepa), Kava, Vitamin E, [place], [place]'s Wort, Maggie, Vitamin E). (exceptions - continue [...] an anesthesia consent form. [facility] in [facility]24 Miscellaneous Notes* Perioperative Nursing Note - Siobhan Cain RN - 10/10/2023 10:00 AM EDT Emailed Gayatri Mckeon's office of anesthesia's request for patient to have procedure at [facility]. documented in this [facility]-2024 Nurse Note* Perioperative Nursing Note - Siobhan Cain RN - 10/10/2023 10:00 AM EDT Emailed Gayatri Mckeon's office of anesthesia's request for patient to have procedure at [facility]. [facility] [employer] [id number] History of Present illness Narrative* Jaja Sanders APRN-AMELIA - 09/20/2023 11:00 AM EDT Images from the original note were not included. 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 Current and prior evaluation and treatments: -Medication trials for this problem: Tylenol - Alternative methods to treatment: None -Physical therapy/Home exercise program: None -care team coordinator scheduler: None -Pain management: None -Pertinent spine surgeries/previous [...] the following report: EEG Service Date: From : until 13:00 on 08/26/23 Date ofReport: 08/26/23 [...] seen. Carina Garcia MD Clinical Neurophysiology Fellow [facility] Teaching/Attending Physician Attestation: I have personally reviewed the entire record. I have reviewed and agree with the above documentation by the clinical neurophysiology fellow physician. Kendall Ceron MD, PhD Professor of Neurology Normal Background Push button event (unclear reason), No epileptiform activity Baseline Routine EEG Result Date: 08/26/2023 Narrative: Images from the original result were not included. [place] VIDEO-EEG REPORT EEG Service Date:08/26/23 Date of [...] not exclude the diagnosis of epilepsy. Carina aGrcia MD Clinical Neurophysiology Fellow [facility] Teaching/Attending Physician Attestation: I have personally [...] mellitus type 2, controlled ([facility] states diagnosed on Tuesday DUFFY (dyspnea on exertion) Epilepsy ([facility] Gender dysphoria Head injury Panic disorder Seizures ([facility]) last seizure was November 13 had 5-6+ [...] procedures Referring and communicating with other health school childcare attendant (not separately reported) Documenting clinical information in the electronic or other health record Independently interpreting results (not separately reported) and communicating results to the patient/family/caregiver Care coordination (not separately reported) Jaja Sanders [facility] This note was created with the assistance of a speech recognition program. While intending to generate a timely document that accurately reflects the content of the visit, no guarantee can be provided that every grammatical or spelling mistake has been or will be identified or corrected. Thank you for your understanding. MILAGROS Duffy 09/23/23 0806 documented in this [facility]South[facility]03-26-2024 Instructions* Patient Instructions* MILAGROS Duffy - 09/20/2023 11:00 AM EDT Physical therapy, call to schedule Ibuprofen 600 mg every 8 hours as needed for pain Tizanidine 2 mg every 8 hours as needed for muscle spasms Follow up in 8 weeks * Attachments The following attachments cannot be sent through Care Everywhere. * Back Precautions (Vietnamese) documented in this encounterSouthwest [facility] Center03-25-2024 History of Present illness Narrative* Nette [...] contraceptive mere was inserted according to the worm picker's instructions without complications. The mere was palpable [...] Encounter Procedures POCT , urine VANESA HAILE, HAIR ASSISTANT documented in this [facility]03-21-2024 Miscellaneous Notes* Telephone Encounter - DAWSON Segura - 09/15/2023 5:59 PM EDT Please schedule him for cystoscopy/possible bilateral retrograde pyelograms under local anesthesia with Dr. Mckeon at [place]. Diagnosis: Gross hematuria, urinary retention * Telephone Encounter - Gayatri Durham - 09/15/2023 5:[address] MCKEON: PLEASE REVIEW AND ADVISE IF YOU WANT THIS CASE UNDER LOCAL OR MAC. THANK YOU * Telephone Encounter - Debbie Mckeon MD - 09/15/2023 5:59 PM EDT mac documented in this [facility]03-21-2024 Telephone encounter Note* Telephone Encounter - DAWSON Segura - 09/15/2023 5:59 PM EDT Please schedule him for cystoscopy/possible bilateral retrograde pyelograms under local anesthesia with Dr. Mckeon at [place]. Diagnosis: Gross hematuria, urinary retention [facility]03-21-2024 Telephone encounter Note* Telephone Encounter - Gayatri Herminio - 09/15/2023 5:[address] MCKEON: PLEASE REVIEW AND ADVISE IF YOU WANT THIS CASE UNDER LOCAL OR MAC. THANK YOU [facility]03-21-2024 Telephone encounter Note* Telephone Encounter - Debbie Mckeon MD - 09/15/2023 5:59 PM EDT mac [facility]03-19-2024 History of Present illness Narrative* Nette [...] cyst from CT scan from 2-2 at [facility]. Reviewed contraceptive options with patient, [...] kidney disease Diabetes mellitus type 2, controlled ([facility]) states diagnosed on Tuesday DUFFY (dyspnea on exertion) Epilepsy ([facility] Gender dysphoria Head injury Panic disorder Seizures ([facility]) last seizure was November 13 had 5-6+ seizures SVT (supraventricular tachycardia) Transgender Urinary tract infection Visual impairment SURGICAL HX Past Surgical History: Procedure Laterality Date BREAST SURGERY Bilateral 12/04/2020 mastectomy CYSTOSCOPY INSERTION STENT URETER Right 11/24/2021 Performed by Debbie Mckeon MD at [facility] CYSTOSCOPY REMOVAL STENT Right 12/09/2021 Performed by Debbie Mckeon MD at [facility] INSERTION LOOP RECORDER 08/03/2023 LASER HOLMIUM URETEROSCOPY RENAL STONES < OR=1CM Right 11/24/2021 Performed by Debbie Mckeon MD at [facility] FAMILY HX Family History Problem Relation [...] this visit: Cyst of left ovary - [facility] Physician's PREPRINT ANALYST - [place] [facility] - [place], [place] - Consult LIKELY OVULATORY FOLLICULAR CYST FU PELVIC SONO NEXPLANON PLACEMENT SCHEDULED NEXT WEEK WILL PROVIDE OVULATORY SUPPRESSION AND CONTRACEPTION UPT TODAY AND RPT NEXT WEEK PRIOR TO INSERTION CONSIDER TESTOSTERONE PELLETS FOR FUTURE HRT URINARY RETENTION UNKNOWN ETIOLOGY--EST ETIOLOGY MD Francia MIMS LPN documented in this encounterSouthwest [facility] Center03-13-2024 Evaluation + Plan note* Assessment & [...] necessary will be determined at the follow-up. [facility] [employer] [id number] Miscellaneous Notes* Assessment & Plan Note - [...] determined at the follow-up. documented in this encounterSouthwest General Health Center03-13-2024 History of Present illness Narrative* DAWSON Segura - 09/07/2023 1:00 PM EDT Images from the original note were not included. [address] [place] [address] [address] [facility] [id number] Patient: Karis Kovacs Date of : 2000 [...] not address his issues. He went to [facility] ER on 07/29/2023. Report from CT without [...] cc Summary of old records: [place] 07/07/23: He is status post cystoscopy/right ureteroscopy/stent placement 11/24/2021. This was for treatment of a 1.8 cm right renal pelvic stone. The stent was removed 12/09/2021. He started to have back pain in April. I do not have the records, but he reports that he went [facility] both for seizures and back pain. [...] mellitus type 2, controlled ([facility] states diagnosed on Tuesday DUFFY (dyspnea on exertion) Epilepsy ([facility]) Gender dysphoria Head injury Panic disorder Seizures ([facility]) last seizure was November 13 had 5-6+ seizures SVT (supraventricular tachycardia) Transgender Urinary tract infection Visual impairment Past Surgical History: Procedure Laterality Date BREAST SURGERY Bilateral 12/04/2020 mastectomy CYSTOSCOPY INSERTION STENT URETER Right 11/24/2021 Performed by Debbie Mckeon MD at [facility] CYSTOSCOPY REMOVAL STENT Right 12/09/2021 Performed by Debbie Mckeon MD at [facility] LASER HOLMIUM URETEROSCOPY RENAL STONES < OR=1CM Right 11/24/2021 Performed by Debbie Mckeon MD at [facility] Family History Problem Relation Age of [...] low back pain with bilateral sciatica - [facility]; Future Cyst of left ovary - [facility] Physician's PREPRINT ANALYST - [facility] - [place], [place] - Consult; Future Gross hematuria - [...] center for the back pain. Referral to blast furnace supervisor for the ovarian cyst. Previous ultrasound showed [...] DAWSON Segura 09/07/23 1330 documented in this encounterSouthwest [facility] Center02-20-2024 Miscellaneous Notes* Telephone Encounter - Renetta Rincon - 08/16/2023 9:34 AM EST This patient was scheduled to see you last week on 08/10/23 in [place]. We rescheduled his appointment to 09/07/23. He [...] sick. Is he willing to come to [place] again I can squeeze him in at 11:45 sometime this week documented in this encounterSouthwest General Health Center02-20-2024 Telephone encounter Note* Telephone Encounter - Renetta Rincon - 08/16/2023 9:34 AM EST This patient was scheduled to see you last week on 08/10/23 in [place]. We rescheduled his appointment to 09/07/23. He was okay with that but he wanted to let you know that he is still see's blood in his urine. I told him that I would relay that to you. [employer]02-20-2024 Telephone encounter Note* Telephone Encounter - DAWSON Segura - 08/16/2023 9:34 AM EST Please apologize for me. Let him know I was out sick. Is he willing to come to [place] again I can squeeze him in at 11:45 sometime this week [employer]02-14-2024 History of Present illness Narrative* Lavonne Thomas NP - 08/10/2023 12:30 PM EST Subjective Yonatan [...] reflexes: Aj's absent. Ankle clonus absent. Coordination [id number], rapid alternating movements and dqax-qw-[id number] normal bilaterally without dysmetria. Gait Normal casual, [...] 100 mg daily Yonatan can buy on [employer] to treatment memory health and numbness. Migraines have not worsened and Imitrex aborts them. documented in this encounterSaint John's Health [id number] Miscellaneous Notes* Telephone Encounter - DAWSON Segura [...] PM EST Pt states he went to [facility] after his 07/28/2023 ER visit and was told that he has an ovarian cyst and kidney stones. I called to request the records/images to PACS but had to [facility]. I alsosent a fax request. [facility] fax # [phone] * Telephone Encounter - DAWSON Segura - 08/02/2023 2:34 PM EST Tomas/Renetta: Can we get him for an appointment here or [place] in the next week or two? * Telephone Encounter - Tomas Varela CMA - 08/02/2023 2:34 PM EST Patient has been scheduled for next Tuesday in our [place] office. documented in this encounterSouthwest General Health Center02-06-2024 Telephone encounter Note* Telephone Encounter - [...] the next week or so for UA/PVR [facility] [employer] [id number] Telephone encounter Note* Telephone Encounter - Joanne Bailey LPN - 08/02/2023 2:34 PM EST Pt states he went to [facility] after his 07/28/2023 ER visit and was told that he has an ovarian cyst and kidney stones. I called to request the records/images to PACS but had to [facility]. I alsosent a fax request. [facility] fax # [phone] [facility]02-[facility] Telephone encounter Note* Telephone Encounter - DAWSON Segura - 08/02/2023 2:34 PM EST Tomas/Renetta: Can we get him for an appointment here or [place] in the next week or two? [facility] [employer] [id number] Telephone encounter Note* Telephone Encounter - Tomas Varela CMA - 08/02/2023 2:34 PM EST Patient has been scheduled for next Tuesday in our [place] office. [facility] [employer] [id number] Evaluation + Plan note* Assessment & Plan [...] a referral to the spine care center. [facility]01-11-2024 Miscellaneous Notes* Assessment & Plan Note - [...] the spine care center. documented in this encounterSouthwest General Health Center01-11-2024 History of Present illness Narrative* DAWSON Segura - 07/07/2023 11:00 AM EST Images from the original note were not included. [address] [facility] [id number] Patient: Karis Kovacs Date of : 2000 [...] records, but he reports that he went [facility] both for seizures and back pain. [...] mellitus type 2, controlled ([facility] states diagnosed on Tuesday DUFFY (dyspnea on exertion) Epilepsy ([facility]) Gender dysphoria Head injury Panic disorder Seizures ([facility]) last seizure was November 13 had 5-6+ seizures SVT (supraventricular tachycardia) ([facility]) Transgender Urinary tract infection Visual impairment Past Surgical History: Procedure Laterality Date BREAST SURGERY Bilateral 12/04/2020 mastectomy CYSTOSCOPY INSERTION STENT URETER Right 11/24/2021 Performed by Debbie Mckeon MD at [facility] CYSTOSCOPY REMOVAL STENT Right 12/09/2021 Performed by Debbie Mckeon MD at [facility] LASER HOLMIUM URETEROSCOPY RENAL STONES < [...] DAWSON Segura 07/07/23 1248 documented in this [facility]01-11-2024 Instructions* Patient Instructions* DAWSON Segura - 07/07/2023 11:00 AM EST I do not see any obvious stones on x-ray. There are some limitations with the study though, so to rule out your kidneys as the source of the pain, let us have you get an ultrasound. Call central scheduling at [phone] to schedule the ultrasound. I will watch [...] investigate musculoskeletal sources for your symptoms Enriqueta: [phone] (Ext [phone]) [facility] documented in this encounterSouthwest General [facility] Center08-13-2023 Hospital Discharge instructions* Discharge Instructions* Stefanie [...] or any other concerns. documented [place] encounterCHRISTOPHER [place] [id number] History of Past illness Narrative* Problem Noted [...] encounter (statuses as of 04/09/2022) [facility] noteNo assessment information availableUniversity Hospitals [facility] Work Phone: Evaluation note* Diagnosis Seizure (HCC) Other convulsions documented [facility] this encounter [facility]* Diagnosis Intractable complex partial epilepsy (CMS/HCC)- Primary Cervical radiculopathy Brachial neuritis or radiculitis nos Insomnia due to medical condition Organic insomnia, unspecified Migraine without aura and without status migrainosus, not intractable (CMS/HCC) Memory loss Neck pain Cervicalgia Cervical paraspinal muscle spasm Spasm of muscle documented in this encounter [facility] HealthcareEvaluation note* Diagnosis Seizure-like activity (HCC)- Primary Other convulsions documented in this encounter [facility]* Diagnosis Onset Date Resolution Status Constipation acute Loss of appetite acute Nausea acute Weight loss, abnormal acute [facility] Work Phone: Evaluation note* Diagnosis Seizure-like [...] Psychogenic nonepileptic seizure documented [facility] this encounter [facility]* Diagnosis Acne vulgaris- Primary Other acne Telogen effluvium documented in this encounter [facility] HealthcareEvaluation note* Diagnosis ADD (attention deficit disorder) without hyperactivity Attention deficit disorder without mention of hyperactivity documented in this encounter [facility] Healthcare[facility] note* Diagnosis ADD (attention deficit disorder) without hyperactivity- Primary Attention deficit disorder without mention of hyperactivity Intractable chronic migraine without aura and without status migrainosus (CMS/HCC) Intractable complex partial epilepsy (CMS/HCC) documented in this encounter [facility] HealthcareEvaluation note* Diagnosis 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, intractable (CMS/HCC) Localization-related (focal) (partial) epilepsy and epileptic syndromes with simple partial seizures, with intractable epilepsy Epilepsy, 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CMS/HCC) documented in this encounter [facility] HealthcareEvaluation note* Diagnosis Intractable chronic migraine without aura and without status migrainosus (CMS/HCC)- Primary documented in this encounter [facility] HealthcareEvaluation note* Diagnosis ADD (attention deficit disorder) without hyperactivity Attention deficit disorder without mention of hyperactivity Insomnia due to medical condition Organic insomnia, unspecified Seizure disorder (CMS/HCC) Unspecified epilepsy without mention of intractable epilepsy Primary insomnia Persistent disorder of initiating or maintaining sleep documented in this encounter [facility] HealthcareEvaluation note* Diagnosis 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, intractable (CMS/HCC) Localization-related (focal) (partial) epilepsy and epileptic syndromes with simple partial seizures, with intractable epilepsy Epilepsy, 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CMS/HCC) documented in this encounter [facility] HealthcareEvaluation note* Diagnosis Seizure-like activity (HCC)- Primary [...] of urinary calculi [facility] Diagnosis Seizure-like activity (HCC)- Primary [...] of insulin (HCC) [facility] Diagnosis Right kidney stone- Primary Right kidney stone- Primary Chronic bilateral low back pain with bilateral sciatica Cyst of left ovary Other and unspecified ovarian cyst Gross hematuria Right kidney stone- Primary Epilepsy, 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CMS-HCC) [facility] Diagnosis ADD (attention deficit disorder) without hyperactivity Attention deficit disorder without mention of hyperactivity documented in this encounter [facility] HealthcareEvaluation note* Diagnosis Seizure disorder (CMS/HCC)- Primary Unspecified epilepsy without mention of intractable epilepsy documented in this encounter [facility] HealthcareEvaluation note* Diagnosis Right kidney stone- Primary Right kidney stone- Primary Chronic bilateral low back pain with bilateral sciatica Cyst of left ovary Other and unspecified ovarian cyst Gross hematuria Hematuria, unspecified type- Primary [facility] Diagnosis Seizure-like activity (HCC)- [...] of mild degree [facility] Diagnosis Intractable complex partial epilepsy (CMS/HCC) documented in this encounter [facility] HealthcareEvaluation note* Diagnosis Acne vulgaris- Primary Other acne documented in this encounter [facility] HealthcareEvaluation note* Diagnosis Right kidney stone- Primary [facility] Diagnosis Right kidney stone- Primary Right kidney stone- Primary Chronic bilateral low back pain with bilateral sciatica Cyst of left ovary Other and unspecified ovarian cyst Gross hematuria Dysuria- Primary [facility] Diagnosis Right kidney stone Muscle spasm- Primary Spasm of muscle Chronic bilateral low back pain, unspecified whether sciatica present Low back pain, unspecified back pain laterality, unspecified chronicity, unspecified whether sciatica present [facility] Diagnosis Muscle spasm- Primary Spasm of muscle Chronic bilateral low back pain without sciatica Chronic bilateral low back pain with bilateral sciatica Low back pain, unspecified back pain laterality, unspecified chronicity, unspecified whether sciatica present [facility] Diagnosis Neck pain- Primary Cervicalgia [facility] Diagnosis Right kidney stone- Primary Chronic bilateral low back pain with bilateral sciatica Cyst of left ovary Other and unspecified ovarian cyst Gross hematuria [facility] Diagnosis Low back pain, unspecified back pain laterality, unspecified chronicity, unspecified whether sciatica present- Primary [facility] Diagnosis Right kidney stone Irregular menstrual cycle- Primary Cyst of left ovary Other and unspecified ovarian cyst [facility] Diagnosis Right kidney stone Encounter for initial prescription of implantable subdermal contraceptive- Primary [facility]* Diagnosis Right kidney stone Muscle spasm- Primary Spasm of muscle Chronic bilateral low back pain, unspecified whether sciatica present [facility] Diagnosis Right kidney stone Gross hematuria- Primary Pre-op testing- Primary Unspecified pre-operative examination Gross hematuria Gross hematuria documented [facility]* Diagnosis Abnormal uterine bleeding (AUB)- Primary documented [facility]* Diagnosis Feeling of incomplete bladder emptying- Primary Epilepsy, 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CMS-HCC) documented [facility]* Diagnosis Acne vulgaris- Primary Other acne documented in this encounter [facility] HealthcareEvaluation note* Diagnosis Seizure-like activity (HCC)- Primary [...] Myopia, bilateral Myopia [facility] Diagnosis ADD (attention deficit disorder) without hyperactivity Attention deficit disorder without mention of hyperactivity documented in this encounter [facility] HealthcareEvaluation note* Diagnosis Psychogenic nonepileptic seizure- Primary Migraine without aura and without status migrainosus, not intractable Chronic insomnia Insomnia, unspecified documented in this encounter [facility] HealthcareEvaluation note* Diagnosis Psychogenic nonepileptic seizure- Primary Tachycardia Unspecified tachycardia Syncope, unspecified syncope type Migraine without aura and without status migrainosus, not intractable Seizure disorder (HCC) Unspecified epilepsy without mention of intractable epilepsy documented in this encounter [facility] HealthcareEvaluation note* Diagnosis Seizure-like activity (HCC)- Primary [...] persistent Persistent vomiting [facility] Diagnosis Intractable complex partial epilepsy (HCC) Focal epilepsy with impairment of consciousness, intractable (HCC) Localization-related (focal) (partial) epilepsy and epileptic syndromes with simple partial seizures, with intractable epilepsy Epilepsy, 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HCC) [facility] Diagnosis Supraventricular tachycardia, unspecified Shortness of breath Palpitations Dizziness and giddiness Implantable loop recorder present Family history of hypertrophic cardiomyopathy Never smoked tobacco BMI < 18.5 documented in this encounter [facility] Work Phone: Evaluation note* Diagnosis Psychogenic nonepileptic seizure- Primary Chronic migraine without aura without status migrainosus, not intractable Chronic insomnia Insomnia, unspecified Tremor Abnormal involuntary movements [facility] Diagnosis Intractable chronic migraine without aura and without status migrainosus- Primary Chronic migraine without aura without status migrainosus, not intractable Anxiety Anxiety state, unspecified [facility]* Diagnosis Seizure-like activity (HCC)- Primary [...] Loss of weight [facility] Diagnosis Seizure-like activity (HCC)- Primary [...] agoraphobia Gastroparesis- Primary [facility] Diagnosis Seizure-like activity (HCC)- Primary [...] stress disorder Gastroparesis [facility] Diagnosis ADD (attention deficit disorder) without hyperactivity Attention deficit disorder without mention of hyperactivity [facility]* Diagnosis Palpitations- Primary Supraventricular tachycardia, unspecified Implantable loop recorder present Family history of hypertrophic cardiomyopathy Shortness of breath Dizziness and giddiness Never smoked tobacco Body mass index (BMI) of 19.0 to 19.9 in adult documented in this encounter [facility] Work Phone: Hospital Discharge instructions Additional Instructions If your symptoms return/worsen or you develop any further concerns or symptoms please see your doctor or return to the emergency department immediately.[facility] Work Phone: Hospital Discharge instructions Additional Instructions Follow-up with primary care doctor Return to ED if develop worsening symptoms or concerns[facility] Work Phone: Hospital Discharge instructions[facility] Work Phone: Hospital Discharge instructions Additional Instructions Continue current [facility] Work Phone: Hospital Discharge instructions [...] of breath, abdominal pain, urinary complaints, nausea, vomiting.[facility] Work Phone: Hospital Discharge instructions Additional Instructions If your symptoms return/worsen or you develop any further concerns or symptoms please see your doctor or return to the emergency department immediately. Please be sure to follow-up with your neurologist.[facility] Work Phone: Hospital Discharge instructions Additional Instructions Continue your medication as prescribed Increase oral fluids Follow-up with your neurologist Return to the ER for uncontrolled seizures seizures lasting longer than 5 minutes fever or any other concernsFirSelect Medical [facility] Work Phone: Hospital Discharge instructionsAmbulatory Orders* Referral to Endocrinology Time Frame: 04/02/24, Location: None Selected [facility] Work Phone: InstructionsNot on filedocumented in [...] Health SystemInstructionsNot on filedocumented in this encounter [facility] SystemInstructionsNot on filedocumented in this encounter [facility] for [facility] (n[facility])* Consultation (Routine) - Pending Review Specialty Diagnoses / Procedures Referred By Contac t Referred To Contact Pain Medicine Diagnoses Chronic bilateral low back pain with bilateral sciatica Muscle spasm Chronic bilateral low back pain, unspecified whether sciatica present Low back pain, unspecified back pain laterality, unspecified chronicity, unspecified whether sciatica present Jaja Sanders APRN-CNP [address] [place] [address] [facility] [address] [place] [address] Referral ID Status Reason Start Date Expiration Date Visits Requested Visits Authorized [id number] Pending Review Specialty Services Required 11/15/2023 11/14/2024 1 1 [facility] for [facility] (narrative)* Consultation (Routine) - Pending Review Specialty Diagnoses / Procedures Referred By Contac t Referred To Contact Obstetrics and Gynecology Diagnoses Cyst of left ovary Enriqueta Tse PA [address] [place] [address] [facility] [place] [address] Referral ID Status Reason Start Date Expiration Date Visits Requested Visits Authorized [id number] Pending Review Specialty Services Required 09/07/2023 09/06/2024 1 1 * Consultation (Routine) - Pending Review Specialty Diagnoses / Procedures Referred By Contac t Referred To Contact Spine Care Diagnoses Chronic bilateral low back pain with bilateral sciatica Enriqueta Tse PA [address] [place] [address] [facility] [address] [place] [address] Referral ID Status Reason Start Date Expiration Date V isits Requested Visits Authorized [id number] Pending Review 09/07/2023 09/06/2024 1 1 [facility] (narrative)No reason for referral information availableOhio[facility] Work Phone: Reason for visit Narrative* Consultation (Routine) - Closed Specialty Diagnoses / Procedures Referred By Contac t Referred To Contact Neurology Diagnoses Chronic migraine without aura without status migrainosus, not intractable Procedures MI OFFICE/OUTPATIENT NEW HIGH MDM 60 MINUTES Sierra Anna, SENIOR STRATEGY ANALYST [address], [facility] [address] [place] [address] Phone: tel: fax: Lavonne Thomas SENIOR STRATEGY ANALYST [address] [place] [address] Phone: tel: fax: Referral ID Status Reason Start Date Expiration Date V isits Requested Visits Authorized [id number] Closed Specialty Services Required 02/06/2025 08/05/2025 1 1 [facility] Healthcare Summary Purpose Family History No Family History Records Found Relationship Condition Age at Onset Recorded Date/T nain Not Specified No pertinent family history Unknown Advance Directives No Advanced Directives Records Found Advance Directive Response Recorded Date/ Time Advance Directives Yes January 05 1:48pm Documents on File Type Date Recorded Patient Email Engineer Expl anation Advance Directive(s) 11/25/2020 10:24 AM Advance Directive Response Recorded Date/ Time Advance Directives Yes January 05 12:48pm Latest Code Status on File Code Status Date Activated Date Inactivated Comments Full Code 07/17/2017 5:41 AM 07/17/2017 8:14 PM Advance Directive Response Recorded Date/ Time Advance Directives Yes October 20, 2 023 1:02pm Advance Directive Response Recorded Date/ Time Advance Directives Yes Jaqueline 26th, 2 023 12:02pm Latest Code Status on File Code Status Date Activated Date Inactivated Comments Full Code 07/17/2017 5:41 AM 07/17/2017 8:14 PM Documents on File Type Date Recorded Patient Email Engineer Expl anation Advance Directive(s) 11/25/2020 10:24 AM [...] Seizure (HCC) Stefanie Ortez MD [address] [place] [address] Caleb Easton MD [address] [place] [address] Referral ID Status Reason Start Date Expiration Date V isits Requested Visits Authorized [id number] Open Specialty Services Required 02/06/2023 08/05/2023 1 [...] (CMS/HCC) Lavonne Thomas NP [address], [place] [address] Referral ID Status Reason Start Date Expiration Date Visits Re quested Visits Authorized [id number] Closed 1 1 Specialty Diagnoses / Procedures [...] ASSMT&IVNTJ INDIV EACH 15 [place] Gale Bassett APRN.MANUFACTURING INSPECTOR [address] [place] [address] Referral ID Status Reason Start Date Expiration Date Visits Requested Visits Authorized [id number] Authorized PCP Requested Referral 4 04/16/2025 1 1 Specialty Diagnoses / Procedures Referred By Contac t Referred To Contact Ophthalmology Diagnoses Mild protein-calorie malnutrition (HCC) Vision changes Procedures CONSULT TO OPHTHALMOLOGY OFFICE/OUTPATIENT [facility] 60 MINUTES Gale Bassett APRN.MANUFACTURING INSPECTOR [address] [place] [address] Referral ID Status Reason Start Date Expiration Date Visits Requested Visits Authorized [id number] Authorized PCP Requested Referral 4 06/18/2025 1 1 Specialty Diagnoses / Procedures Referred By Contac t Referred To Contact Radiology Diagnoses Chronic bilateral low back pain without sciatica Chronic bilateral low back pain with bilateral sciatica Procedures MR lumbar spine without contrast Jaja Sanders APRN-MANUFACTURING INSPECTOR [address] [place] [address] Referral ID Status Reason Start Date Expiration Date V isits Requested Visits Authorized [id number] Pending Review 12/28/2023 12/27/2024 1 1 Specialty Diagnoses / Procedures Referred By Contac t Referred To Contact Rehabilitation Diagnoses Chronic bilateral low back pain with bilateral sciatica Muscle spasm Jaja Sanders, ROSA-MANUFACTURING INSPECTOR [address] [place] [address] Referral ID Status Reason Start Date Expiration Date Visits Requested Visits Authorized [id number] Pending Review Specialty Services Required 09/20/2023 03/22/2024 1 1 Additional Source Comments INFORMATION SOURCE (unrecogn ized section and content) DATE CREATED AUTHOR 09/02/2018 [facility] DATE CREATED AUTHOR AUTHOR'S ORGANIZ ATION 10/20/2018 [facility] DATE CREATED AUTHOR AUTHOR'S ORGANIZ ATION 03/24/2021 [facility] DATE CREATED AUTHOR AUTHOR'S ORGANIZ ATION 09/16/2021 [facility] DATE CREATED AUTHOR AUTHOR'S ORGANIZ ATION 09/28/2022 [facility] DATE CREATED AUTHOR AUTHOR'S ORGANIZ ATION 02/06/2023 [facility] DATE CREATED AUTHOR AUTHOR'S ORGANIZ ATION 12/10/2023 [facility] DATE CREATED AUTHOR AUTHOR'S ORGANIZ ATION 05/01/2024 [facility] DATE CREATED AUTHOR AUTHOR'S ORGANIZ ATION 08/18/2024 [facility] DATE CREATED AUTHOR AUTHOR'S ORGANIZ ATION 09/05/2024 [facility] DATE CREATED AUTHOR AUTHOR'S ORGANIZ ATION 11/22/2024 [facility] DATE CREATED AUTHOR AUTHOR'S ORGANIZ ATION 02/08/2025 [facility] DATE CREATED AUTHOR AUTHOR'S ORGANIZ ATION 02/18/2025 [facility] DATE CREATED AUTHOR AUTHOR'S ORGANIZ ATION 02/27/2025 [facility] DATE CREATED AUTHOR AUTHOR'S ORGANIZ ATION 03/09/2025 [facility] DATE CREATED AUTHOR AUTHOR'S ORGANIZ ATION 03/10/2025 [facility] DATE CREATED AUTHOR AUTHOR'S ORGANIZ ATION 03/12/2025 [facility] DATE CREATED AUTHOR AUTHOR'S ORGANIZ ATION 03/22/2025 [facility] Care Teams (unrecognized sec tion and content) [...] 27, 2024 End: September 27, 2024 Tere L Ly , DO Attending Provider Active St art: September 27, 2024 End: September 27, 2024 Team Status: Inactive Member Role Status Dates Tere L Ly , DO Attending Provider Active St art: October 15, 2024 End: October 15, 2024 Kavin French , DO Primary Care Provider Active Start: October 15, 2024 End: October 15, 2024 Team Status: Active Member Role Status Dates Tere Solis , DO Attending Provider, Other Provider Active [...] 02, 2024 End: April 02, 2024 Tere Sweetie Ly , DO Attending Provider Active St art: April 02, 2024 End: April 02, 2024 Lvaonne Thomas , [employer] SENIOR STRATEGY ANALYST-C Referring Provider Active Start: April 02, 2024 End: April 02, 2024 Team Status: Inactive Member Role Status Dates Tommy Bowen DO Emergency Provider Active Kavin French , Primary Care Provider Active Team Status: Inactive Member Role Status Dates Kavin French , Primary Care Provider Active Bobby Rojas DO Emergency Provider Active Team Status: Inactive Member Role Status Dates Kavin French DO Primary Care Provider Active Roberto Whittaker DO Emergency Provider Active Team Status: Inactive Member Role Status Dates Kavin French DO Primary Care Provider Active Som Fiore DO Emergency Provider Active Team Status: Inactive Member Role Status Dates Kavin French DO Primary Care Provider Active Los Mcnally DO Emergency Provider Active Team Status: Inactive Member Role Status Dates Kavin French DO Primary Care Provider Active Pipe Jose MD Emergency Provider Active Obstetrics And Gynecology Professor Relationship Specialty Start Date End Kavin French . [address] [place] [address] PCP - General Family Medicine 03/29/19 Team Status: Inactive Member Role Status Jo Ann Fiore DO Emergency Provider Active Kavin French , DO Primary Care Provider Active Brandon Verde , DO RES Active Team Status: Inactive Member Role Status Dates Los Noemy Mcnally , DO Emergency Provider Active Kavin [...] Primary Care Provider Active Federica Wolfe , [facility] Emergency Provider Active Obstetrics And Gynecology Professor Relationship Specialty Start Date End Date Kavin French Sr., DO [address] [place] [address] PCP - General Family Medicine 07/17/17 Team Status: Inactive Member Role Status Dates Kavin French , Primary Care Provider Active Margarita Gallo MD RES Active Milton Rivera PA-C Emergency Provider Active Team Status: Inactive Member Role Status Dates Pipe Jose MD Emergency Provider Active NON STAFF Primary Care Provider Active Team Status: Inactive Member Role Status Dates Som Fiore , Emergency Provider Active NON STAFF Primary Care Provider Active Obstetrics And Gynecology Professor Relationship Specialty Start Date End Date Kavin French MD [address] [place] [address] PCP - General Family Medicine 02/11/23 Obstetrics And Gynecology Professor Relationship Specialty Start Date End Date Kavin French Sr., DO [address] [place] [address] PCP - General Family Medicine 07/17/17 Obstetrics And Gynecology Professor Relationship Specialty Start Date End Date Kavin French Sr., DO [address] [place] [address] PCP - General Family Medicine 07/17/17 Obstetrics And Gynecology Professor Relationship Specialty Start Date End Date Kavin French SrEstrella, DO PCP - [facility] 03/29/19 Obstetrics And Gynecology Professor Relationship Specialty Start Date End Date Kavin French Sr., DO PCP - [facility] 03/29/19 Obstetrics And Gynecology Professor Relationship Specialty Start Date End Date Kavin French MD [address] [facility] [place] [address] PCP - [facility] 02/11/23 Lavonne Thomas NP [address] [place] [address], [place] [address] PCP - [facility] 12/26/23 Obstetrics And Gynecology Professor Relationship Specialty Start Date End Date Kavin French MD [address] [facility] [place] [address] PCP - [facility] 02/11/23 Lavonne Thomas NP [address] [place] [address] PCP - [facility] 12/26/23 Obstetrics And Gynecology Professor Relationship Specialty Start Date End Date Kavin French Sr., DO PCP - [facility] 03/29/19 Obstetrics And Gynecology Professor Relationship Specialty Start Date End Date Kavin French MD [address] [facility] [place] [address] PCP - [facility] 02/11/23 Lavonne Thomas NP [address] [place] [address], [place] [address] PCP - [facility] 12/26/23 Obstetrics And Gynecology Professor Relationship Specialty Start Date End Date Kavin French MD [address] [facility] [place] [address] PCP - [facility] 02/11/23 Lavonne Thomas SENIOR STRATEGY ANALYST [address] [place] [address], [place] [address] PCP - [facility] 12/26/23 Obstetrics And Gynecology Professor Relationship Specialty Start Date End Date Kavin French MD [address] [facility] [place] [address] PCP - [facility] 02/11/23 Lavonne Thomas NP [address] [place] [address], [place] [address] PCP - [facility] 12/26/23 Obstetrics And Gynecology Professor Relationship Specialty Start Date End Date Kavin French MD [address] [facility] [place] [address] PCP - [facility] 02/11/23 Lavonne Thomas SENIOR STRATEGY ANALYST [address] [place] [address], [place] [address] PCP - [facility] 12/26/23 Obstetrics And Gynecology Professor Relationship Specialty Start Date End Date Kavin French MD [address] [facility] [place] [address] PCP - General Family Medicine 02/11/23 Lavonne Thomas NP [address] [place] [address], [place] [address] PCP - [facility] 12/26/23 Obstetrics And Gynecology Professor Relationship Specialty Start Date End Date Kavin French MD [address] [facility] [place] [address] PCP - [facility] 02/11/23 Lavonne Thomas NP [address] [place] [address], [place] [address] PCP - [facility] 12/26/23 Obstetrics And Gynecology Professor Relationship Specialty Start Date End Date Kavin French MD [address] [facility] [place] [address] PCP - [facility] 02/11/23 Lavonne Thomas NP [address] [facility] [address] [place] [address], [place] [address] PCP - [facility] 12/26/23 Obstetrics And Gynecology Professor Relationship Specialty Start Date End Date Kavin French MD [address] [facility] [place] [address] PCP - [facility] 02/11/23 Lavonne Thomas NP [address] [place] [address], [place] [address] PCP - [facility] 12/26/23 Obstetrics And Gynecology Professor Relationship Specialty Start Date End Date Kavin French Sr., PCP - General [facility] Medicine 03/29/19 Obstetrics And Gynecology Professor Relationship Specialty Start Date End Date Kavin French Sr., DO PCP - General [facility] Medicine 03/29/19 Obstetrics And Gynecology Professor Relationship Specialty Start Date End Date Kavin French Sr., DO PCP - General [facility] 03/29/19 Obstetrics And Gynecology Professor Relationship Specialty Start Date End Date Kavin French DO [address] [place] [address] PCP - [facility] 01/06/24 Obstetrics And Gynecology Professor Relationship Specialty Start Date End Date Kavin French MD [address] [place] [address] PCP - [facility] 02/11/23 Lavonne Thomas NP [address] [place] [address] PCP - [facility] 12/26/23 Obstetrics And Gynecology Professor Relationship Specialty Start Date End Date Kavin French MD [address] [place] [address] PCP - [facility] 02/11/23 Lavonne Thomas NP [address] [place] [address] PCP - [facility] 12/26/23 Obstetrics And Gynecology Professor Relationship Specialty Start Date End Date Kavin French DO [facility] [place] [address] PCP - [facility] 01/06/24 Obstetrics And Gynecology Professor Relationship Specialty Start Date End Date Kavin French Sr., DO PCP - [facility] 03/29/19 Obstetrics And Gynecology Professor Relationship Specialty Start Date End Date Kavin French MD [address] [place] [address] PCP - [facility] 02/11/23 Lavonne Thomas SENIOR STRATEGY ANALYST [address] [place] [address] PCP - [facility] 12/26/23 Obstetrics And Gynecology Professor Relationship Specialty Start Date End Date Kavin French MD [address] [place] [address] PCP - [facility] 02/11/23 Lavonne Thomas SENIOR STRATEGY ANALYST [address] [place] [address] PCP - [facility] 12/26/23 Obstetrics And Gynecology Professor Relationship Specialty Start Date End Date Kavin French MD [address] [place] [address] PCP - [facility] 02/11/23 Lavonne Thomas SENIOR STRATEGY ANALYST [address] [place] [address] PCP - [facility] 12/26/23 Obstetrics And Gynecology Professor Relationship Specialty Start Date End Date Kavin French DO [address] [place] [address] PCP - General Family Medicine 03/12/20 Obstetrics And Gynecology Professor Relationship Specialty Start Date End Date Kavin French DO [address] [place] [address] PCP - General Family Medicine 03/12/20 Obstetrics And Gynecology Professor Relationship Specialty Start Date End Date Kavin French DO [address] [place] [address] PCP - General Family Medicine 01/06/24 Obstetrics And Gynecology Professor Relationship Specialty Start Date End Date Kavin French DO [address] [place] [address] PCP - General Family Medicine 03/12/20 Obstetrics And Gynecology Professor Relationship Specialty Start Date End Date Kavin French DO [address] [place] [address] PCP - General Family Medicine 03/12/20 Obstetrics And Gynecology Professor Relationship Specialty Start Date End Date Kavin French DO [address] [place] [address] PCP - General Family Medicine 03/12/20 Obstetrics And Gynecology Professor Relationship Specialty Start Date End Date Kavin French DO [address] [place] [address] PCP - General Family Medicine 03/12/20 Obstetrics And Gynecology Professor Relationship Specialty Start Date End Date Kavin French DO [address] [place] [address] PCP - General Family Medicine 03/12/20 Obstetrics And Gynecology Professor Relationship Specialty Start Date End Date Kavin French DO [address] [place] [address], [place] [address] PCP - General Family Medicine 03/12/20 Obstetrics And Gynecology Professor Relationship Specialty Start Date End Date Kavin French DO [address] [place] [address] PCP - General Family Medicine 03/12/20 Obstetrics And Gynecology Professor Relationship Specialty Start Date End Date Kavin French DO [address] [place] [address] PCP - General Family Medicine 03/12/20 Obstetrics And Gynecology Professor Relationship Specialty Start Date End Date Kavin French DO [address] [place] [address] PCP - General Family Medicine 03/12/20 Obstetrics And Gynecology Professor Relationship Specialty Start Date End Date Kavin French DO [address] [place] [address] PCP - General Family Medicine 03/12/20 Obstetrics And Gynecology Professor Relationship Specialty Start Date End Date Kavin French DO [address] [place] [address] PCP - General Family Medicine 03/12/20 Obstetrics And Gynecology Professor Relationship Specialty Start Date End Date Kavin French DO [address] [place] [address] PCP - General Family Medicine 03/12/20 Obstetrics And Gynecology Professor Relationship Specialty Start Date End Date Kavin French DO [address] [place] [address] PCP - General Family Medicine 03/12/20 Obstetrics And Gynecology Professor Relationship Specialty Start Date End Date Kavin French MD [address] [place] [address] PCP - General [facility] 02/11/23 Lavonne Thomas, SILVIA [address] [facility] [address] [place] [address] PCP - [facility] 12/26/23 Obstetrics And Gynecology Professor Relationship Specialty Start Date End Date Kavin French DO [address] [facility] [place] [address] PCP - [facility] 08/16/24 Obstetrics And Gynecology Professor Relationship Specialty Start Date End Date Kavin French DO [address] [facility] [place] [address] PCP - [facility] 08/16/24 Obstetrics And Gynecology Professor Relationship Specialty Start Date End Date Kavin French MD [address] [place] [address] PCP - [facility] 02/11/23 Lavonne Thomas, SENIOR STRATEGY ANALYST [address] [facility] [address] [place] [address] PCP - [facility] 12/26/23 Team Status: Active Member Role Status Dates NON STAFF Primary Care Provider Active Start: July 08, 2024 Won Rahman DO Attending Provider Active Sta rt: July 08, 2024 Obstetrics And Gynecology Professor Relationship Specialty Start Date End Date Kavin French Sr., DO PCP - [facility] 03/29/19 Obstetrics And Gynecology Professor Relationship Specialty Start Date End Date Kavin French DO [address] [facility] [place] [place] [address] PCP - General Family Medicine 08/16/24 Obstetrics And Gynecology Professor Relationship Specialty Start Date End Date Kavin [place] [address] PCP - General Family Medicine 08/16/24 Team Status: Inactive Member Role Status Dates Kavin French DO Primary Care Provider Active Start: November 01, 2024 End: November 01, 2024 Tere Solis DO Attending Provider Active St art: November 01, 2024 End: November 01, 2024 Obstetrics And Gynecology Professor Relationship Specialty Start Date End Date Kavin French MD [address] [place] [address] PCP - [facility] 02/11/23 Lavonne Thomas NP [address] [facility] [address] [place] [address] PCP - [facility] 12/26/23 Obstetrics And Gynecology Professor Relationship Specialty Start Date End Date Kavin French MD [address] [place] [address] PCP - [facility] 02/11/23 Lavonne Thomas NP [address] [place] [address] PCP - [facility] 12/26/23 Obstetrics And Gynecology Professor Relationship Specialty Start Date End Date Kavin French MD [address] [place] [address] PCP - [facility] 02/11/23 Lavonne Thomas NP [address] [address] PCP - [facility] 12/26/23 Obstetrics And Gynecology Professor Relationship Specialty Start Date End Date Kavin French Sr., DO PCP - General Family Medicine 03/29/19 Obstetrics And Gynecology Professor Relationship Specialty Start Date End Date Kavin French Sr., DO PCP - General Family Medicine 03/29/19 Obstetrics And Gynecology Professor Relationship Specialty Start Date End Date Kavin French Sr., DO PCP - General Family Medicine 03/29/19 Obstetrics And Gynecology Professor Relationship Specialty Start Date End Date Kavin French DO [address] [place] [address] PCP - General [facility] 01/09/25 Obstetrics And Gynecology Professor Relationship Specialty Start Date End Date Kavin French MD PCP - General Family Medicine 02/11/23 Lavonne Thomas, SENIOR STRATEGY ANALYST [address] [place] [address] PCP - [facility] 12/26/23 Obstetrics And Gynecology Professor Relationship Specialty Start Date End Date Kavin French MD PCP - General [facility] Medicine 02/11/23 Lavonne Thomas, SENIOR STRATEGY ANALYST [address] [place] [address] PCP - [facility] 12/26/23 Obstetrics And Gynecology Professor Relationship Specialty Start Date End Date Kavin French Sr., DO PCP - General Family Medicine 03/29/19 Obstetrics And Gynecology Professor Relationship Specialty Start Date End Date Kavin French MD PCP - General Family Medicine 02/11/23 Lavonne Thomas NP [address] [place] [address] PCP - [facility] 12/26/23 Obstetrics And Gynecology Professor Relationship Specialty Start Date End Date Kavin French Sr., DO PCP - General Family Medicine 03/29/[address], [place] [address] Registered Dietitian Nutrition 02/19/25 Obstetrics And Gynecology Professor Relationship Specialty Start Date End Date Kavin French Sr., DO PCP - General Family Medicine 03/29/[address] [place] [address] Registered Dietitian Nutrition 02/19/25 Team Status: Active Member Role Status Dates Kavin French DO Primary Care Provider Active Start: February 26, 2025 Shantanu Robles MD Other Provider Active St art: February 26, 2025 Adam Patel MD Attending Provider Active Start: February 26, 2025 Team Status: Inactive Member Role Status Dates Kavin French DO Primary Care Provider Active Start: February 26, 2025 End: February 26, 2025 Shantanu Robles MD Attending Provider Active Start: February 26, 2025 End: February 26, 2025 Obstetrics And Gynecology Professor Relationship Specialty Start Date End Date Kavin French Sr., DO PCP - General Family Medicine 03/29/[address] [place] [address] Registered Dietitian Nutrition 02/19/25 Obstetrics And Gynecology Professor Relationship Specialty Start Date End Date Kavin French MD PCP - General Family Medicine 02/11/23 Lavonne Thomas NP [address] [facility] [address] [address] PCP - [facility] 12/26/23 Obstetrics And Gynecology Professor Relationship Specialty Start Date End Date Kavin French DO [address] [place] [address] PCP - General Family Medicine 01/09/25 Goals [...] any alcohol or drug abuse patient.[facility] HospitalIn the event this information is protected by the Federal Confidentiality of Alcohol and Drug Abuse Patient Records regulations: The Federal rules restrict any use of the information to criminally investigate or prosecute any alcohol or drug abuse patient.[facility] HospitalIn the event this information is protected by the Federal Confidentiality of Alcohol and Drug Abuse Patient Records regulations: The Federal rules restrict any use of the information to criminally investigate or prosecute any alcohol or drug abuse patient.[facility] HospitalIn the event this information is protected by the Federal Confidentiality of Alcohol and Drug Abuse Patient Records regulations: The Federal rules restrict any use of the information to criminally investigate or prosecute any alcohol or drug abuse patient.[facility] HospitalIn the event this information is protected by the Federal Confidentiality of Alcohol and Drug Abuse Patient Records regulations: The Federal rules restrict any use of the information to criminally investigate or prosecute any alcohol or drug abuse patient.[facility] HospitalIn the event this information is protected by the Federal Confidentiality of Alcohol and Drug Abuse Patient Records regulations: The Federal rules restrict any use of the information to criminally investigate or prosecute any alcohol or drug abuse patient.[facility] HospitalIn the event this information is protected by the Federal Confidentiality of Alcohol and Drug Abuse Patient Records regulations: The Federal rules restrict any use of the information to criminally investigate or prosecute any alcohol or drug abuse patient.[facility] HospitalIn the event this information is protected by the Federal Confidentiality of Alcohol and Drug Abuse Patient Records regulations: The Federal rules restrict any use of the information to criminally investigate or prosecute any alcohol or drug abuse patient.[facility] HospitalIn the event this information is protected by the Federal Confidentiality of Alcohol and Drug Abuse Patient Records regulations: The Federal rules restrict any use of the information to criminally investigate or prosecute any alcohol or drug abuse patient.[facility] HospitalIn the event this information is protected by the Federal Confidentiality of Alcohol and Drug Abuse Patient Records regulations: The Federal rules restrict any use of the information to criminally investigate or prosecute any alcohol or drug abuse patient.[facility] HospitalIn the event this information is protected by the Federal Confidentiality of Alcohol and Drug Abuse Patient Records regulations: The Federal rules restrict any use of the information to criminally investigate or prosecute any alcohol or drug abuse patient.[facility] HospitalIn the event this information is protected by the Federal Confidentiality of Alcohol and Drug Abuse Patient Records regulations: The Federal rules restrict any use of the information to criminally investigate or prosecute any alcohol or drug abuse patient.[facility] HospitalIn the event this information is protected by the Federal Confidentiality of Alcohol and Drug Abuse Patient Records regulations: The Federal rules restrict any use of the information to criminally investigate or prosecute any alcohol or drug abuse patient.[facility] HospitalIn the event this information is protected by the Federal Confidentiality of Alcohol and Drug Abuse Patient Records regulations: The Federal rules restrict any use of the information to criminally investigate or prosecute any alcohol or drug abuse patient.[facility] HospitalIn the event this information is protected by the Federal Confidentiality of Alcohol and Drug Abuse Patient Records regulations: The Federal rules restrict any use of the information to criminally investigate or prosecute any alcohol or drug abuse patient.[facility] HospitalIn the event this information is protected by the Federal Confidentiality of Alcohol and Drug Abuse Patient Records regulations: The Federal rules restrict any use of the information to criminally investigate or prosecute any alcohol or drug abuse patient.[facility] HospitalIn the event this information is protected by the Federal Confidentiality of Alcohol and Drug Abuse Patient Records regulations: The Federal rules restrict any use of the information to criminally investigate or prosecute any alcohol or drug abuse patient.[facility] HospitalIn the event this information is protected by the Federal Confidentiality of Alcohol and Drug Abuse Patient Records regulations: The Federal rules restrict any use of the information to criminally investigate or prosecute any alcohol or drug abuse patient.[facility] Reason for Visit (unrecogniz ed section and content) Reason Comments Seizures Pt has hx of epileps y, pt has had 14 seizures today Reason Comments Seizures Hx of was just admit manjula to [facility] for seizures sent to [facility], had 2 seizures there, on 3 different meds took all meds today Head Injury Hit head on left reina e, Reason Comments Diabetes Reason Comments Follow-up Reason Comments Question dexcom 7 Reason Comments Med Refill Reason Comments Low Blood Sugar Reason Comments Refill Request Reason Onset Date Comments Med Refill 07/03/2024 Reason Onset Date Comments 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 Specialty Diagnoses / Procedures Referred By Contac t Referred To Contact Obstetrics and Gynecology Diagnoses Cyst of left ovary Enriqueta Tse PA [address] [place] [address] [facility] [address] [place] [address] [place] [address] Referral ID Status Reason Start Date Expiration Date V isits Requested Visits Authorized [id number] Closed Specialty Services Required 09/07/2023 09/06/2024 1 1 Reason Comments Contraception Reason Comments Consult New patient , lumbar , x-rays Specialty Diagnoses / Procedures Referred By Contac t Referred To Contact Spine Care Diagnoses Chronic bilateral low back pain with bilateral sciatica Enriqueta Tse PA [address] [place] [address] [facility] [address] [place] [phone] Referral ID Status Reason Start Date Expiration Date V isits Requested Visits Authorized [id number] Pending Review 09/07/2023 09/06/2024 1 1 Reason Comments Menstrual Problem Irregular spotting s vianey Nov. Pt has Nexplanon Reason Comments Bladder Problem Pt is having the fee ling they are not emptying all the way Reason Comments Comprehensive Health Assessment Type 2 s vianey age 20LEE 3 yrs ago Specialty Diagnoses / Procedures Referred By Carlos A t Referred To Contact Ophthalmology Diagnoses Mild protein-calorie malnutrition (HCC) Vision changes Procedures CONSULT TO OPHTHALMOLOGY OFFICE/OUTPATIENT NEW HIGH MDM 60 MINUTES Gale Bassett APRN.MANUFACTURING INSPECTOR [address] [place] [address] Phone: tel: fax: Referral ID Status Reason Start Date Expiration Date V isits Requested Visits Authorized [id number] Closed PCP Requested Referral 06/18/2024 06/18/2025 1 1 Reason Onset Date Comments Sleep Lab 10/12/2024 PSG Reason Comments Consult Reason Onset Date Comments Med Refill 01/07/2025 Reason Comments Ambulatory Social Work Reason Comments New Patient Visit Graziani-Tachycardia Specialty Diagnoses / Procedures Referred By Carlos A t Referred To Contact Diagnoses Supraventricular tachycardia, unspecified Palpitations Procedures ECG 12 Lead Shantanu Robles MD [address] [facility] 2, [facility] [address] [place] [address] Phone: tel: fax: Referral ID Status Reason Start Date Expiration Date V isits Requested Visits Authorized [id number] Authorized 01/23/2025 01/23/2026 1 1 Reason Comments Medication Problem Blood-Glucose Sensor (FREESTYLE GOYO 3 PLUS SENSOR) efrain Reason Comments Infection Concern Reason Comments Gastroparesis Reason Comments Nutrition Assessment Reason Comments Gastroparesis Specialty Diagnoses / Procedures Referred By Carlos A t Referred To Contact Psychology / PSYCHOLOGY Diagnoses Gastroparesis New gp consult Procedures PSYCHOTHERAPY 45 MINUTES WITH PATIENT DDI BEHAVIORAL MEDICINE Tere Solis DO [address] [facility] [address] [place] [address] Phone: tel: fax: Tammy Palacios PSYD [address] [place] [address] Phone: tel: fax: Referral ID Status Reason Start Date Expiration Date V isits Requested Visits Authorized [id number] Authorized 11/25/2024 06/26/2025 99 99 Reason Onset Date Comments Med Refill 02/28/2025 Reason Comments Follow-up 2 month follow up SV T Specialty Diagnoses / Procedures Referred By Carlos A t Referred To Contact Cardiology Diagnoses Supraventricular tachycardia, unspecified Procedures Follow Up In Cardiology Shantanu Robles MD [address] [place] [address], [address] [address] Phone: tel: fax: Shantanu Robles MD [address] [place] [address] 2, [address] [address] Phone: tel: fax: Referral ID Status Reason Start Date Expiration Date V isits Requested Visits Authorized [id number] Authorized 01/23/2025 01/23/2026 1 1 Ordered Prescriptions [...] 1,000 mg, IntraVENous, ONCE, 1 dose, On Electra 02/06/23 at 1715 1716 (New Bag - [...] BE BASED ON THE PRIMARY CLINICAL RECORDS. [employer] provides no warranty or guarantee of the accuracy or completeness of information in this document.
--- NOTE | 2025-03-29 14:15 | ED.GENADUL1 ---
HPI HPI - General Adult General Chief complaint: Chest Pain Stated complaint: CHEST PAIN, DIFFICULTY BREATHING, BLURRED VISION-R Time Seen by Provider: 03/29/25 12:53 Source: patient Mode of arrival: walk-in Limitations: no limitations History of Present Illness HPI narrative: The patient is a 24-year-old transgender male originally female , presenting to the ER after he had been exposed to mold and was few hours ago, it was when he saw the mold that he started having burning in his chest mostly in the left upper side associated with pressure, no significant shortness of breath no fever no nausea no vomiting no other complaints Patient was transferred to another facility almost 2 weeks ago when he had 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 Related Data Home Medications ?Medication ?Instructions ?Recorded ?Confirmed clobazam 10 mg tablet 10 mg PO .qhs 08/23/23 03/29/25 midazolam 5 mg/spray (0.1 mL) 1 spray intranasal PRN PRN FOR 08/24/23 03/29/25 nasal spray (Nayzilam) SEIZURES metoprolol succinate 25 mg 25 mg PO DAILY 01/28/24 03/29/25 tablet,extended release 24 hr dexmethylphenidate 5 mg 10 mg PO DAILY 07/07/24 03/29/25 capsule,extended release [id number] lamotrigine 200 mg tablet 200 mg PO Q12H 07/07/24 03/29/25 brivaracetam 100 mg tablet 100 mg PO BID 07/08/24 03/29/25 (Briviact) azelaic acid 15 % topical gel 1 applic topical DAILY 08/14/24 03/29/25 ondansetron HCl 4 mg tablet 4 mg PO Q8H PRN nausea and vomiting 08/14/24 03/09/25 zonisamide 25 mg capsule 25 mg PO .QHS 01/09/25 03/09/25 dexmethylphenidate 10 mg tablet 10 mg PO DAILY 03/09/25 03/29/25 (Focalin) fludrocortisone 0.1 mg tablet 0.1 mg PO DAILY 03/09/25 03/29/25 brexpiprazole 0.5 mg tablet 0.5 mg PO DAILY 03/29/25 03/29/25 (Rexulti) buspirone 10 mg tablet 10 mg PO DAILY 03/29/25 03/29/25 Previous Rx's ?Medication ?Instructions ?Recorded promethazine 25 mg tablet 25 mg PO TID PRN nausea and 12/29/24 vomiting 2 days #6 tabs Allergies Allergy/AdvReac Type Severity Reaction Status Date / Time codeine Allergy Unknown Rash Verified 03/09/25 13:43 topiramate (From Topamax) Allergy resp Verified 03/09/25 13:43 failure Opioid HPI Opioid Management Most Recent Opioid Data: Last Pain Scale 5 Today, 12:43 Ur Phencyclidine Scrn, (NEGATIVE) Negative 07/07/24, 23:48 Review of Systems ROS Status of ROS 10 or more systems reviewed and unremarkable except as noted in history and below [facility] Social History Smoking status: Current every day smoker Little interest or pleasure in doing things: not at all Feeling down, depressed, or hopeless: not at all Exam Narrative Exam Narrative: Nurses notes and vital signs reviewed and patient is not hypoxic. General: Well-appearing and in no apparent distress. Skin: Warm, dry, no pallor noted. No rash. Head: Normocephalic, atraumatic. Neck: Supple, non-tender. Cardiovascular: Regular Rate and Rhythm without murmur, gallop or rub. Respiratory: No accessory muscle use or respiratory distress. Lungs are clear to auscultation, no wheezing, rales or rhonchi Chest Wall: no tenderness Back: No midline thoracic or lumbar vertebral tenderness. No CVA tenderness Musculoskeletal: normal ROM, no calf or popliteal tenderness, no lower extremity edema/swelling GI: Abdomen is soft, non-distended. Normal bowel sounds. No masses appreciated. No tenderness to palpation. No rebound, guarding, or rigidity noted. Neurological: A&O x4. No cranial nerve dysfunction observed. No truncal ataxia. Moves all extremities. Sensation intact. Psychiatric: Cooperative and interactive. Normal mood and affect. Constitutional Vital Signs, click to edit/add: Last Vital Signs Temp 98.4 F 03/29/25 12:43 Pulse 80 03/29/25 14:10 Resp 18 03/29/25 14:10 BP 117/76 03/29/25 14:00 Pulse Ox 100 03/29/25 12:45 O2 Del Method Room Air 03/29/25 13:20 Course Vital Signs Vital signs: Vital Signs Temperature 98.4 F 03/29/25 12:43 Pulse Rate 74 03/29/25 12:43 Respiratory Rate 18 03/29/25 12:43 Blood Pressure 131/80 03/29/25 12:43 Pulse Oximetry 100 03/29/25 12:43 Temperature 98.4 F 03/29/25 12:43 Pulse Rate 80 03/29/25 14:10 Respiratory Rate 18 03/29/25 14:10 Blood Pressure 117/76 03/29/25 14:00 Pulse Oximetry 100 03/29/25 12:45 Oxygen Delivery Method Room Air 03/29/25 13:20 Medical Decision Making MDM Narrative Medical decision making narrative: The patient EKG showing sinus rhythm with a heart rate of [address] elevation or depression The patient presentation is mostly secondary to anxiety especially that it just happens when 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 The patient received DuoNeb here in the ER and Toradol after which he was feeling better The patient also had chest x-ray showed no acute pathology Right now just monitor symptoms at home to come back to the ER in case of any new symptoms or concerns The patient to follow-up with ophthalmology as well as this blurry vision could be secondary to compression but he still need to follow-up with ophthalmology patient The patient is to follow up with primary care physician in next 2-3 days or to return to the emergency department should any of the signs or symptoms worsen or new symptoms develop. The patient agrees with the following Diagnosis and Treatment plan and the patient will be discharged home. Discharge Plan Discharge Chief Complaint: Chest Pain Clinical Impression: Mild reactive airways disease Patient Disposition: Home, Self-Care Time of Disposition Decision: 14:15 Condition: Good Prescriptions / Home Meds: No Action clobazam 10 mg tablet 10 mg PO .qhs Nayzilam 5 mg/spray (0.1 mL) spray,non-aerosol 1 spray INTRANASAL PRN PRN (Reason: FOR SEIZURES) metoprolol succinate 25 mg tablet extended release 24 hr 25 mg PO DAILY lamotrigine 200 mg tablet 200 mg PO Q12H dexmethylphenidate 5 mg capsule,ER biphasic 50-50 10 mg PO DAILY Briviact 100 mg tablet 100 mg PO BID dexmethylphenidate [Focalin] 10 mg tablet 10 mg PO DAILY fludrocortisone 0.1 mg tablet 0.1 mg PO DAILY Rexulti 0.5 mg tablet 0.5 mg PO DAILY buspirone 10 mg tablet 10 mg PO DAILY azelaic acid 15 % gel 1 applic TOPICAL DAILY ondansetron HCl 4 mg tablet 4 mg PO Q8H PRN (Reason: nausea and vomiting) promethazine 25 mg tablet 25 mg PO TID PRN (Reason: nausea and vomiting) 2 Days Qty: 6 0RF zonisamide 25 mg capsule 25 mg PO .QHS Print Language: Bulgarian Instructions: Noncardiac Chest Pain (ED) Referrals: KAVIN FRENCH [Primary Care Provider, Family Practice] - 1 week
== END 2025-03-29 14:22 | disposition home or self-care (01) ==
PROVIDERS: Emergency Provider Emergency Medicine; PCP Family Medicine
DX: J45.909 Unspecified asthma, uncomplicated (principal)
CPT/HCPCS: 71045; 93005; 94640; 96372; 99284; J1885